=== PATIENT | male | born 1950 | race Caucasian/White ===

== ENCOUNTER → 2022-03-25 | Outpatient (CLI) | payer MEDICARE, SELFPAY ==
--- NOTE | 2022-03-25 13:56 | PCM.CR.HP2 ---
CR - History & Physical - General Arrival date:: 03/25/22 Arrival time:: 13:57 Date of Referral:: 03/14/24 Date of CR Evaluation:: 03/25/22 Referring Physician: Dr. Nicolas @ [facility] Primary Diagnosis: PCI w/coronary stent - History of Present Cardiac Event Onset Date: Enter Onset Date of cardiac illnesses in Comment field below Acute Myocardial Infarction within 12 months:: Yes - ST-Elevated Myocardial Infarction STEMI (11/29/21)022 Coronary Artery Bypass Graft:: No Heart valve replacement or repair:: No PTCA or coronary stenting:: Yes - 11/29/2021 Vessel: MIRANDA to the RCA, 01/27/2022 staged to the LAD for total of 4 stents Heart or Heart-Lung Transplant:: No Heart Failure EF <35%:: No Type of Symptoms:: Was at work that day experienced heavy chest pain and called 911. Transported to [facility] w/[facility] and then to [facility] for suspected CABG being plan A. Once at [place], patient discussed options with Dr. Nicolas and went with stent procedures as Plan B. Interventions with present event:: heart cath and PCI intervention Were there any complications?: Has another blockage in smaller vessel but has collateral vessels. - Sleep Disorder Evaluation Hx of Sleep Apnea: No Do you snore loudly (louder than talking or can be heard through closed doors)?: No Do you often feel tired/ fatigued/ sleepy during daytime?: No Has anyone observed you stop breathing during sleep?: No History of Hypertension (for STOP score): Yes STOP Results: Negative - Medications Home Medications: Ambulatory Orders Medication Instructions Recorded amlodipine 5 mg tablet mg PO DAILY 05/30/13 atenolol 25 mg tablet mg PO DAILY 05/30/13 lisinopril 5 mg tablet mg PO DAILY 05/30/13 pravastatin 40 mg tablet 40 mg PO DAILY 05/30/13 allopurinol 100 mg tablet 100 mg PO DAILY 03/25/22 ascorbic acid (vitamin C) 500 mg 500 mg PO DAILY 03/25/22 tablet aspirin 81 mg capsule 81 mg PO DAILY 03/25/22 atenolol 50 mg tablet 50 mg PO DAILY 03/25/22 atorvastatin 80 mg tablet 80 mg PO DAILY 03/25/22 cholecalciferol (vitamin D3) 125 125 mcg PO DAILY 03/25/22 mcg (5,000 unit) capsule clopidogrel 75 mg tablet 75 mg PO DAILY 03/25/22 [id number] oil-omega 3-vit E cap PO 03/25/22 50 mg-550 mg-300 mg-30 unit capsule diphenhydramine HCl 25 mg capsule 25 mg PO QHS PRN Allergic Symptoms 03/25/22 (Benadryl) doxepin 25 mg capsule 25 mg PO QHS 03/25/22 multivit with minerals-iron 18 tab PO 03/25/22 mg-folic ac 400 mcg-vit K 25 mcg tablet (Adults Multivitamin) nitroglycerin 0.3 mg sublingual 0.4 mg sublingual Q5M PRN Chest 03/25/22 tablet Pain - Allergies Allergies/Adverse Reactions: Allergies hydrochlorothiazide Allergy (Verified 03/25/22 14:13) Hives Advanced Directives - Advanced Directives Power of Video Clerk: Yes Living Will: Yes Advance Directives Information Provided: No Advance Directives on File: No DNR Order?:: No - MOLST See MOLST form: No Past Medical History - Covid-19 Screening Fever: No Unexplained muscle aches: No Current respiratory symptoms: No Upper respiratory infections symptoms: No Gastro-intestinal symptoms: No Jdw-Hwaj-Wnnaai symptoms: No Has tested positive for COVID-19 in last 30 days: No Date of testin03/25/22 - Jesus Vaccine and Booster Had contact w/person w/symptoms or Covid-19 (+) last 14 days: No Has High Risk Exposures ID'd by Health dept/Inf Control team: No 65 years or older:: Yes Lives in Assisted Living facility:: No Has a chronic lung disease or moderate to severe asthma:: No Has a serious heart condition:: Yes Immunocompromised:: No Severely obese (Body Mass Index of 40 or higher):: No Diabetic:: No Has chronic kidney disease undergoing dialysis:: No Has liver disease:: No - Past Medical Illness Medical History: Past Medical History (Last Updated 03/25/22 @ 14:23 by Jordan Cohen, CONTROL SYSTEMS ENGINEER, SEASONAL CUSTOMER SERVICE ASSOCIATE, BS) Atherosclerotic heart disease of [place] coronary artery without angina pectoris I25.10 Coronary artery disease I25.10 Hyperlipidemia E78.[address] elevation [place] (STEMI) Onset Date: ~11/29/21 I21.3 PCI w/coronary stent to the RCA on 11/29/2021. Additional staged PCI with stents to the LAD then on 01/29/2022 for a total of 4 stents. - Past Surgical History Surgical History: Past Surgical History (Last Updated 03/25/22 @ 14:22 by Jordan Cohen, CONTROL SYSTEMS ENGINEER, SEASONAL CUSTOMER SERVICE ASSOCIATE, BS) Presence of coronary angioplasty implant and graft Onset Date: ~11/29/21 Z95.5 Social History - Smoking History Smoking Status: Never smoker Hx Tobacco Use: No Hx Smoking Exposure: No - Alcohol Use Alcohol Usage: Yes - occasional beer - Substance Abuse Hx Substance Use: No - Occupation Occupation (List type of work in comments):: Employed - works part-time in [place]. Former [employer] employee - Hobbies, Recreation, Social Activities Hobbies: Sports - [place] for baseball, Other - [place] for high school baseball Recreational Activities: I am able to engage in most, but not all activities Social Environment - Status Marital Status: - Current Living Arrangements Living Environment:: Spouse - Children How many children do you have?: 3 Do any of your children live nearby?: Yes - Safety Do you feel safe in your surroundings?: Yes - Assistance Do you need any assistance at home?: No Review of Systems - Review of Systems Hints: Right click = Denies ([place]). Left click = Reports ([place]) Review of Present Symptoms: Reports: Shortness of Breath with Exertion - Sometimes, Dizziness/Lightheadedness - at times; usually in the morning when getting up., Appetite - Normal, Sleep - Normal - since lost have difficulty sleeping through the night, frequently waking up but will go back to sleep fairly easily.. Denies: Shortness of Breath at Rest, Angina, Fatigue, Heart Arrhythmia/Irregularities, Appetite - Special Diet - Pain Is Patient Pain Free?: No Pain Location: none Pain Level: 0/10 Risk Factor Assessment - Vital Signs Temperature: 98.7 F Respiratory Rate: 14 Pulse Ox: 95 Blood Pressure: 134/80 - Pulse Pulse Rate: 56 Pulse Rhythm: Regular - Hypertension How long have you been treated?: 1979' On medication(s)?: Yes Blood Pressure Sitting - Left Arm: 134/80 - Stress Stress: Home/Family - Recent loss of , had been 46 years. - Obesity Height: 5 ft 11 in Weight:: 195 lb Weight in Pounds: 195.0 lbs Weight Source: Estimated by Patient Body Mass Index (BMI): 27.1 Nutritional Referral for Obesity: No - Physical Inactivity Physical Inactivity: Reg Exercise 30 min/day, Physically demanding job - Risk Stratification Risk Guidelines: Lowest Risk: Risk Factor for Smoking, Risk Factor for Dyslipidemia, Risk Factor for Diabetes, Risk Factor for Obesity, Risk Factor for Sedentary Lifestyle, Risk Factor for Depression, Moderate Risk: Risk Factor for Hypertension - 134/80 Motivation - Motivation to Participate On a scale of 1 to 10, how prepared are you to commit to attending program?: 9 What do you see as barriers to successfully being able to complete the program?: no What do you see as the benefits of succesfully completing the program? In other words, what do you hope to get out of participating in the program?: Hopefully strengthen the heart, increase/improve health Are there issues you are dealing with that will interfere with completing the program?: no Do you have a spouse or signficant other, family or friends who will help support you to complete the program?: yes
--- NOTE | 2022-03-25 13:57 | PCM.CR.ITP ---
Diagnosis - General Information Admitting Diagnosis: STEMI, PCI w/stent to the RCA then a Staged PCI w/coronary stents to the LAD for a total of 4 stents. Secondary Diagnosis: Hypertension, Hyperlipidemia, Coronary Artery Disease (CAD) Personal Learning Style:: Audio/Visual, Written Barriers to Learning: Vision Impairment Stage of change r/t lifestyle modifications:: Action Gave educational material for:: Treating Heart Disease, Emotions & Heart Disease, Stress Management & Relaxation, Sleep Disorders & Heart Disease, How The Heart Works, What it means to have Heart Disease, How Coronary Artery Disease is Diagnosed, Heart Procedures, What Heart Medications Do, Risk Factors & Modifications, Living an Active Life, Nutrition - Education/Goals Individual Counseling: Initial Assessment: Abnormal Cholesterol Levels, High Blood Pressure Cardiac Rehabilitation Goals: 1. Maintain the individual as the primary focus of care. 2. To improve the patient's quality of life. 3. Identification of cardiac risk factors and provide cardiac risk factor management. 4. Enhance the psychosocial status of the patient. 5. Reconditioning enough to allow the patient to resume customary activities. 6. Control symptoms of cardiac disease Personal Goals: Initial Assessment: Improve management of stress and emotions, Improve energy level, Participate in home exercise program, Get back to work, or to resume activities faster, Improve knowledge of cardiac disease, Improve diet and eating habits (eat healthier), Control risk factors (learn risk factor modification) Scale for measuring improvement of personal goals: Enter appropriate number in Comments. 2 = Unchanged. 3 = Slightly Better. 4 = Moderate Improvement. 5 = Met my Goal - Diagnosis & Disease Process Outcomes/Goals: Pt IDs own risk factors & lifestyle modifications by Session 10, Verbalizes symptoms of angina & response by session 3., Pt independently manages Plan/Interventions: Assist Pt to ID & engage in lifestyle modification to reduce CVD risk, Instruct on individual risk factors, Review symptoms of angina & emergency actions, Review secondary diagnosis & identify educational needs. - Safety Referral to Physical Therapy: No Referral to [facility] Case Management: No Fall Risk Assessed:: Yes Assistive Devices:: None Exercise - Initial Assessment - Visit Date of Eval: 03/25/22 Session #:: 0 - Pre-cardiac rehab evaluation Mets: Pre-: >7 METS for 30 minutes by discharge - Physician Prescribed Exercise Modalities: Treadmill, Rower, Airdyne Frequency: 3x/week for 12 weeks [36 sessions] Intensity: 60-80% of age predicted maximum heart rate reserve Duration: 30 - 45 minutes Current METSs:: 3.5 Target Heart Rate:: 97-129 Resting Blood Pressure: 134/80 EKG Type: Sinus Rhythm w/first degree AVB Current Physical Activity or Exercising minutes: Sits less than 3 hours daily. Works part-time - Outcomes & Goals Goals:: Verbalizes understanding of THR, RPE & goal METS by session 6, Documents in home exercise log/reports 30 min aerobic 5 day/wk by DC, Demonstrates accurate pulse taking by DC - Intervention & Plan Exercise Program Goals: Instruct on personal THR & RPE, Instruct on MET level & personal MET goal, Show patient to take own pulse /validate performance until accurate, Instruct on home exercise - Physical Activity Home Exercise Physical Activity - Home Exercise: Safe Exercise, Warm-up, Self-monitoring, Cool-Down, Home Exercise > 30 min Daily, Sitting Time <3 hours/daily - Outcomes & Goals Outcomes/Goals: Demonstrates correct Warm-up/exercise Cool-Down (S3) if = 2.5 METs, Verbalizes symptoms of exercise intolerance by Session 3 (S3), Demonstrate safe equipment use (S3) & follows exercise prescrition (6) - Intervention & Plan Plan/Intervention: Instruct warm-up & cool-down if exercising at > 2 METs, Instruct on symptoms of exercise intolerance & actions to take, Instruct & monitor on saf, Assess intial functional capacity & safety risk Nutrition - Initial Assessment - Program Goals Nutrition Program Goals: LDL <100 optimal. 100 - 129 Near optimal. 130 - 159 Borderline High. 160 - 189 High. Total Cholesterol <200 desirable. 200 - 239 Borderline High. >/= 240 High. HDL < 40 Low >/=60 High. Triglycerides <150 desirable. <199 optimal. VlDL 5 - 40. HgbA1C <7%. BMI <25 Patient has diagnosis of Hyperlipidemia (ICD E78)?: Yes - Visit Date of Assessment:: 03/25/22 Session #:: 0 - Pre-cardiac rehab evaluation - Cholesterol/Lipids (Other Core Measures) Triglycerides (mg/dL): 0 - lab work unavailable Determine presence & major risk factors that modify LDL goal: Hypertension or hypertensive medication, Age men > 45 years; women >/= 55 years Outcomes/Goals: Pt IDs own risk factors & lifestyle modifications by Session 10, Verbalizes symptoms of angina & response by session 3., Pt independently manages Intervention/Plan: Instruct on personal lipid levels & lipid goals/NCEP guidelines, Instruct on cholesterol Referral to dietitian:: Yes - Medical NUtrition Therapy - Diabetes (Other Core Measures) Diabetes Type: Not Applicable - Weight Mgt (Other Care) Height: 5 ft 10 in Weight:: 195 lb BMI: 27.9 Diagnosis Overweight/Obesity BMI> 30% ICD-10 E66: No Diagnosis High BMI/Morbid Obesity BMI> 35% ICD-10 Z68: No Outcomes/Goals: Pt sets, maintains & shows weight loss goal & trend during rehab Intervention/Plan: Instruct on ideal BMI & set weight loss goal w/patient - Healthy Eating Habits Will attend diet classes:: Yes Outcomes/Goals:: Consume diet rich in vegs,fruits,whole grain/high fiber,fish,lean meat, Limit sat/trans fats,cholesterol & added salts & sugars Intervention/Plan:: Assess current eating habits - Education Gave educational materials for:: Healthy eating Nutrition - 30-Day Assessment Nutrition - 60-Day Assessment Nutrition - 90-Day Assessment Nutrition - Final Assessment Core - Initial Assessment - Visit Date of Eval: 03/25/22 Session #:: 0 - Pre-cardiac rehab evaluation - Medication Compliance Preventative Medication(s):: Aspirin, Clopidogrel/P2Y12 inhibit, Statin/lipid, Beta iban H/O mental health issues: depression, anxiety, or addiction?: No Doesn?t believe in the benefits of treatment?: No Believes medications are unnecessary or harmful?: No Has a concern about medication side effects?: No Expresses concern over the cost of medications?: No Outcomes/Goals: Verbalizes medications,desired effect & common side effects @ DC, Pt self-reports following medication regimen, Keeps card in wallet w/medications listed by DC Interventions/plans: Instruct on medication effects & side effects, Review medication list w/patient every two weeks, Instruct importance of taking meds as ordered & assist problem solving - Tobacco Use Tobacco Use: Non-smoker - Hypertension Hypertension Diagnosis:: Hypertension ICD-10 I10 Resting Blood Pressure:: 134/80 [place] [employer] Association Hypertension Guidelines: [place] Heart Association Hypertension Guidelines. Normal BP Less than 120/80. Elevated BP 120/80. Hypertension Stage 1: BP 130-139/80-89. Hypertesnion Stage 2: BP 140 or higher/90 or higher. Hypertension Crisis: BP higher than 180/120 Peak Exercise Blood Pressure:: 134/80 Outcomes/Goals: Able to verbalize/achieve optimal blood pressure <130/80, Incorporates diet changes & exercise for blood pressure control by DC Interventions/plan: Instruct on optimal blood pressure, hypertension & medications, Instruct on effects of sodium, alcohol, stress, exercise &hypertension - Tobacco Cessation Referral Smoking Cessation Referral:: No Individual Education/Counseling:: No Education Schedule Given:: Yes Core - 30-Day Assessment Core - 60-Day Assessment Core - 90 Day Assessment Core - Final Assessment Psychosocial - Initial Assess - VIsit Date of Eval: 03/25/22 Session #:: 0 - Pre-cardiac rehab evaluation Not Applicable: Yes History of previous Mental disease:: No - Psychosocial Test Tool Used:: Ferrans Wilfredo QOL Cardiac, PHQ-9 Questionnaire phq-9 Severity: Severity. 1-4 Minimal Depression. 5-9 Mild Depression. 10-14 Moderate Depression. 15-19 Moderately Sever Depression. 20-27 Severe Depression. Rule: - Referral to Behavioral Health PS - Interventions: Yes Attend Stress Management Classes, No Referral to Behavioral Health if PHQ-9 score >9:, No Referral to [facility], No Referral to Physician if PHQ-9 if score is 5-9: - Outcomes/Goals: See list Psychosocial Outcomes/Goals:: ID's personal stressors & 2 strategies to manage stress by discharge - Intervention/Plan: See List Interventions/Plan:: Assess stressors,coping strategies & signs of derpression on admission, Instruct/assist pt to develop coping & personal stress Mgt strategies, Instruct patient to recognize signs & symptoms of depression, Instruct patient to recog Psychosocial - 30-Day Assess Psychosocial - 60-Day Assess Psychosocial - 90-Day Assess Psychosocial - Final Assessmen Patient Health Questionnaire Initial Assessment 1. Little interest or pleasure in doing things: Several days 2. Feeling down, depressed, or hopeless: Several days 3. Trouble falling or staying asleep, or sleeping too much: Several days 4. Feeling tired or having little energy: Several days 5. Poor appetite or overeating: Several days 6. Feeling bad about yourself -- or that you are a failure or have let yourself or your family down: Not at all 7. Trouble concentrating on things, such as reading the newspaper or watching television: Several days 8. Moving or speaking so slowly that other people could have noticed. Or the opposite - being so fidgety or restless that you have been moving around a lot more than usual: Not at all 9. Thoughts that you would be better off , or of hurting yourself in some way: Not at all How difficult have these problems made it for you to do your work, take care of things at home, or get along with other people?: Not difficult at all Total Score: 6 TYRESE-Q SV Test - Statements CAD is a disease of the arteries in the heart: False Examples of risk factors for heart disease: True Angina is chest pain or discomfort: True The benefits of resistance training include: True Eating more meat and dairy products: False Anti-platelet medications such as aspirin are important: True The only effective way to manage stress: False An exercise warm-up slowly increases heart rate: True Prepared, processed foods usually have high sodium: True Depression is common after a heart attack: True The statin medications lower cholesterol: True To control blood pressure, lower the amount of sodium: True If someone gets chest discomfort during walking: False Transfats are partially hydrogenated vegetable oils: True Sleep apnea that is not treated increases the risk: I Don't Know To control cholesterol, one should become a vegetarian: I Don't Know Someone knows if he/she is exercising at the right level: True Diabetes cannot be prevented with exercise & health eating: True Stress is a large risk for heart attack: True A diet that can help lower blood pressure is rich in: True - Total Score Total Correct Responses: 17 Self-Efficacy Initial Assessment We would like to know how confident you are in doing certain activities. Please select your confidence level for:: Select your confidence level for the following using the scale 1-10 where 1 is not at all confident and 10 is totally confident. Your score is the average of all 6 responses. Fatigue: How confident are you that you can keep the fatigue caused by your disease from interfering with the things you want to do? Select Number: 4 Physical Discomfort or Pain: How confident are you that you can keep the physical discomfort or pain of your disease from interfering with the things you want to do? Select Number: 4 Emotional Distress: How confident are you that you can keep the emotional distress caused by your disease from interfering with the things you want to do? Select Number: 4 Other Symptoms or Health Problems: How confident are you that you can keep other symptoms or health problems from interfering with the things you want to do? Select Number: 4 Different Tasks and Activities: How confident are you that you can do the different tasks and activities needed to manage your health condition so as to reduce your need to see a doctor? Select Number: 4 Medication: How confident are you that you can do things other than just taking medication to reduce how much your illness affects your everyday life? Select Number: 4 Total Score:: 4 Nutrition Survey - Nutrition Survey Initial Have you lost >10 lbs over the past 2 months without trying?: No Are you following a special diet at home for diabetes, low fat, or low salt?: No Are you interested in meeting with a dietitian for help understanding your diet?: No Do you eat less than 3 meals a day?: No Do you eat fatty meats (hill, sausage, ribs, etc), fried foods, desserts, large amounts of salad dressings, margarine, butter, or cheese most days?: Yes Do you have food allergies? [Enter types in comment field]: No Do you eat in restaurants more than 3 times a week?: No Do you season food with salt, seasoning salt, or garlic salt?: Yes Do you used canned, boxed, frozen meals, or soups, seasoning packets?: Yes Total Score:: 3
[2022-03-25 14:44] VITALS: BP 134/80; PULSE 56; RESP 14; TEMP 37.1; O2SAT 95; BMI 27.1
[2022-03-25 15:31] VITALS: BP 134/80; BMI 27.9
== END | disposition home or self-care (01) ==
LOC: CR 13:51
PROVIDERS: PCP Family Medicine; Referring Provider Internal Medicine; Visit Provider Internal Medicine
DX: E78.5 Hyperlipidemia, unspecified (principal); I10 Essential (primary) hypertension; I25.10 Atherosclerotic heart disease of native coronary artery without angina pectoris

== ENCOUNTER 2022-04-22 14:30 | Outpatient (RCR) | payer MEDICARE, SELFPAY ==
[2022-03-25 15:31] VITALS: BMI 27.9
== END 2022-04-22 23:59 ==
LOC: CR 14:30
PROVIDERS: PCP Family Medicine; Referring Provider Internal Medicine; Visit Provider Internal Medicine
DX: I25.2 Old myocardial infarction (principal); Z95.5 Presence of coronary angioplasty implant and graft
CPT/HCPCS: 93798

== ENCOUNTER 2022-05-23 14:30 | Outpatient (RCR) | payer MEDICARE, SELFPAY ==
[2022-03-25 15:31] VITALS: BMI 27.9
--- NOTE | 2022-04-25 11:12 | CR.ITP_ITS ---
Diagnosis Exercise - 30-day Assessment - Visit Date of Eval: 04/25/22 Session #:: 11 - Physician Prescribed Exercise Modalities: Treadmill, Rower, Airdyne, NuStep, SciFit, Lateral [place] Frequency: 3x/week for 12 weeks [36 sessions] Intensity: 60-80% of age predicted maximum heart rate reserve Current METSs:: 5 Target Heart Rate:: 97-129 Current RPE:: 13 Maximum Excercise HR:: 95 Resting Blood Pressure: 116/78 Maximum Exercise Blood Pressure: 150/90 EKG Type: NSR/BBB W1st degree AVB w/ Twave inversion rare pac and pvc - Outcomes & Goals Goals:: Verbalizes understanding of THR, RPE & goal METS by session 6, Documents in home exercise log/reports 30 min aerobic 5 day/wk by DC, Demonstrates accurate pulse taking by DC, Other additional outcome/goals: see below - Intervention & Plan Exercise Program Goals: Instruct on personal THR & RPE, Instruct on MET level & personal MET goal, Show patient to take own pulse /validate performance until accurate, Instruct on home exercise, Other additional plan/int - 30-day Reassessments 30 day Reassessments:: Progressing - increasing METS - Physical Activity Home Exercise Physical Activity - Home Exercise: Safe Exercise, Warm-up, Self-monitoring, Cool-Down, Home Exercise > 30 min Daily, Sitting Time <3 hours/daily - Outcomes & Goals Outcomes/Goals: Demonstrates correct Warm-up/exercise Cool-Down (S3) if = 2.5 METs, Verbalizes symptoms of exercise intolerance by Session 3 (S3), Demonstrate safe equipment use (S3) & follows exercise prescrition (6), Other: See below - Intervention & Plan Plan/Intervention: Instruct warm-up & cool-down if exercising at > 2 METs, Instruct on symptoms of exercise intolerance & actions to take, Instruct & monitor on saf, Assess intial functional capacity & safety risk, Other See below - 30-day Reassessments 30 day Reassessments:: Progressing - safe exercise explained Nutrition - Initial Assessment Nutrition - 30-Day Assessment - Program Goals Nutrition Program Goals: LDL <100 optimal. 100 - 129 Near optimal. 130 - 159 Borderline High. 160 - 189 High. Total Cholesterol <200 desirable. 200 - 239 Borderline High. >/= 240 High. HDL < 40 Low >/=60 High. Triglycerides <150 desirable. <199 optimal. VlDL 5 - 40. HgbA1C <7%. BMI <25 Patient has diagnosis of Hyperlipidemia (ICD E78)?: Yes - Visit Date of Assessment:: 04/25/22 Session #:: 11 - Cholesterol/Lipids (Other Core Measures) Determine presence & major risk factors that modify LDL goal: Hypertension or hypertensive medication, Low HDL cholesterol <40 mg/dL*, Family history of premature CHD in Male < 55 years: female <65 yearsFa, Age men > 45 years; women >/= 55 years Outcomes/Goals: Pt IDs own risk factors & lifestyle modifications by Session 10, Verbalizes symptoms of angina & response by session 3., Pt independently manages, Other Additional Outcomes/Goals: Intervention/Plan: Advocate for lipid panel cholesterol medication if applicable, Instruct on personal lipid levels & lipid goals/NCEP guidelines, Instruct on cholesterol, Other additional plan/int 30-day Reassessments:: Progressing - risk factors explained - Diabetes (Other Core Measures) Diabetes Type: Not Applicable - Weight Mgt (Other Care) Height: 5 ft 10 in Weight:: 90.718 kg BMI: 28.7 Outcomes/Goals: Pt sets, maintains & shows weight loss goal & trend during rehab, Other additional outcomes/goals Intervention/Plan: Instruct on ideal BMI & set weight loss goal w/patient, Assist pt to ID & incorporate diet changes for weight loss by S9, Refer to Structured Weight Loss program as appropriate, Encourage goal of using 250- 300dcal per session for weight loss, Other additional plan/interventions 30 day Reassessments:: Progressing - attended nutrition class - Healthy Eating Habits Will attend diet classes:: Yes Outcomes/Goals:: Consume diet rich in vegs,fruits,whole grain/high fiber,fish,lean meat, Limit sat/trans fats,cholesterol & added salts & sugars, Other additional outcome/goals: Intervention/Plan:: Assess current eating habits, Other Additional plan/interventions 30-day Reassessments:: Progressing - attended nutrition class - Education Gave educational materials for:: Signs & symptoms of hypoglycemia, Signs & symptoms of hyperglycemia, Relate diabetes to coronary artery disease, Healthy eating Nutrition - 60-Day Assessment Nutrition - 90-Day Assessment Nutrition - Final Assessment Core - Initial Assessment Core - 30-Day Assessment - Visit Date of Eval: 04/25/22 Session #:: 11 - Medication Compliance Preventative Medication(s):: Aspirin, Clopidogrel/P2Y12 inhibit, Statin/lipid, Beta iban H/O mental health issues: depression, anxiety, or addiction?: No Doesn?t believe in the benefits of treatment?: No Believes medications are unnecessary or harmful?: No Has a concern about medication side effects?: No Expresses concern over the cost of medications?: No Outcomes/Goals: Verbalizes medications,desired effect & common side effects @ DC, Pt self-reports following medication regimen, Keeps card in wallet w/medications listed by DC, Other additional outcome/goals: Interventions/plans: Instruct on medication effects & side effects, Review medication list w/patient every two weeks, Instruct importance of taking meds as ordered & assist problem solving, Other additional 30-day Reassessments:: Progressing - encouraged to take meds - Tobacco Use Tobacco Use: Non-smoker Do you use smokeless tobacco?: No - Hypertension Hypertension Diagnosis:: Hypertension ICD-10 I10 Resting Blood Pressure:: 116/78 [place] [employer] Hypertension Guidelines: [place] [employer] Hypertension Guidelines. Normal BP Less than 120/80. Elevated BP 120/80. Hypertension Stage 1: BP 130-139/80-89. Hypertesnion Stage 2: BP 140 or higher/90 or higher. Hypertension Crisis: BP higher than 180/120 Peak Exercise Blood Pressure:: 150/90 Outcomes/Goals: Able to verbalize/achieve optimal blood pressure <130/80, Incorporates diet changes & exercise for blood pressure control by DC, Other additional outcomes/goals Interventions/plan: Instruct on optimal blood pressure, hypertension & medications, Instruct on effects of sodium, alcohol, stress, exercise &hypertension, Other additional plan/interventions 30 day Reassessments:: Progressing - encouraged to take meds - Tobacco Cessation Referral Smoking Cessation Referral:: No Individual Education/Counseling:: No Education Schedule Given:: Yes Core - 60-Day Assessment Core - 90 Day Assessment Core - Final Assessment Psychosocial - Initial Assess Psychosocial - 30-Day Assess - VIsit Date of Eval: 04/25/22 Session #:: 11 Psychosocial - 60-Day Assess Psychosocial - 90-Day Assess Psychosocial - Final Assessmen Patient Health Questionnaire 30-Day Re-eval Assessment 1. Little interest or pleasure in doing things: Several days 2. Feeling down, depressed, or hopeless: Several days 3. Trouble falling or staying asleep, or sleeping too much: Several days 4. Feeling tired or having little energy: Several days 5. Poor appetite or overeating: Several days 6. Feeling bad about yourself -- or that you are a failure or have let yourself or your family down: Not at all 7. Trouble concentrating on things, such as reading the newspaper or watching television: Several days 8. Moving or speaking so slowly that other people could have noticed. Or the opposite - being so fidgety or restless that you have been moving around a lot more than usual: Not at all 9. Thoughts that you would be better off , or of hurting yourself in some way: Not at all How difficult have these problems made it for you to do your work, take care of things at home, or get along with other people?: Not difficult at all Total Score: 6 Self-Efficacy 30-Day Re-eval Assessment We would like to know how confident you are in doing certain activities. Please select your confidence level for:: Select your confidence level for the following using the scale 1-10 where 1 is not at all confident and 10 is totally confident. Your score is the average of all 6 responses. Fatigue: How confident are you that you can keep the fatigue caused by your disease from interfering with the things you want to do? Select Number: 4 Physical Discomfort or Pain: How confident are you that you can keep the physical discomfort or pain of your disease from interfering with the things you want to do? Select Number: 4 Emotional Distress: How confident are you that you can keep the emotional distress caused by your disease from interfering with the things you want to do? Select Number: 4 Other Symptoms or Health Problems: How confident are you that you can keep other symptoms or health problems from interfering with the things you want to do? Select Number: 4 Different Tasks and Activities: How confident are you that you can do the different tasks and activities needed to manage your health condition so as to reduce your need to see a doctor? Select Number: 4 Medication: How confident are you that you can do things other than just taking medication to reduce how much your illness affects your everyday life? Select Number: 4 Total Score:: 4 Nutrition Survey
[2022-04-25 11:19] VITALS: BP 116/78; BP 150/90; BMI 28.7
== END 2022-05-23 23:59 ==
LOC: CR 14:30
PROVIDERS: PCP Family Medicine; Referring Provider Internal Medicine; Visit Provider Internal Medicine
DX: Z95.5 Presence of coronary angioplasty implant and graft
CPT/HCPCS: 93798

== ENCOUNTER 2022-06-22 14:30 | Outpatient (RCR) | payer MEDICARE, SELFPAY ==
[2022-04-25 11:19] VITALS: BMI 28.7
[2022-05-24 00:35] VITALS: BP 116/78; BP 150/90
--- NOTE | 2022-05-25 09:29 | CR.ITP_ITS ---
Diagnosis Exercise - 60-day Assessment - Visit Date of Eval: 05/25/22 Session #:: 23 - Physician Prescribed Exercise Modalities: Treadmill, Airdyne, NuStep Frequency: 3x/week for 12 weeks [36 sessions] Intensity: 60-80% of age predicted maximum heart rate reserve Duration: 30 - 45 minutes Current METSs:: 5.0 Target Heart Rate:: 97-129 Current RPE:: 12 Maximum Excercise HR:: 138 Resting Blood Pressure: 162/90 Maximum Exercise Blood Pressure: 190/96 EKG Type: SB to ST w/BBB, 1st degree AVB T wave inversion, PACs PVCs. Dr. Nicolas infor Current Physical Activity or Exercising minutes: 45:12 - Outcomes & Goals Goals:: Verbalizes understanding of THR, RPE & goal METS by session 6, Documents in home exercise log/reports 30 min aerobic 5 day/wk by DC, Demonstrates accurate pulse taking by DC - Intervention & Plan Exercise Program Goals: Instruct on personal THR & RPE, Instruct on MET level & personal MET goal, Show patient to take own pulse /validate performance until accurate, Instruct on home exercise - 30-day Reassessments 30 day Reassessments:: Met - Physical Activity Home Exercise Physical Activity - Home Exercise: Safe Exercise, Warm-up, Self-monitoring, Cool-Down, Home Exercise > 30 min Daily, Sitting Time <3 hours/daily - Outcomes & Goals Outcomes/Goals: Demonstrates correct Warm-up/exercise Cool-Down (S3) if = 2.5 METs, Verbalizes symptoms of exercise intolerance by Session 3 (S3), Demonstrate safe equipment use (S3) & follows exercise prescrition (6) - Intervention & Plan Plan/Intervention: Instruct warm-up & cool-down if exercising at > 2 METs, Instruct on symptoms of exercise intolerance & actions to take, Instruct & monitor on saf, Assess intial functional capacity & safety risk - 30-day Reassessments 30 day Reassessments:: Met Nutrition - Initial Assessment Nutrition - 30-Day Assessment Nutrition - 60-Day Assessment - Program Goals Nutrition Program Goals: LDL <100 optimal. 100 - 129 Near optimal. 130 - 159 Borderline High. 160 - 189 High. Total Cholesterol <200 desirable. 200 - 239 Borderline High. >/= 240 High. HDL < 40 Low >/=60 High. Triglycerides <150 desirable. <199 optimal. VlDL 5 - 40. HgbA1C <7%. BMI <25 Patient has diagnosis of Hyperlipidemia (ICD E78)?: Yes - Visit Date of Assessment:: 05/25/22 Session #:: 23 - Cholesterol/Lipids (Other Core Measures) Determine presence & major risk factors that modify LDL goal: Hypertension or hypertensive medication, Age men > 45 years; women >/= 55 years Outcomes/Goals: Pt IDs own risk factors & lifestyle modifications by Session 10, Verbalizes symptoms of angina & response by session 3., Pt independently manages Intervention/Plan: Instruct on personal lipid levels & lipid goals/NCEP guidelines, Instruct on cholesterol Referral to dietitian:: Yes - Medical Nutrition Therapy 30-day Reassessments:: Progressing - Diabetes (Other Core Measures) Diabetes Type: Not Applicable - Weight Mgt (Other Care) Not Applicable: Yes Height: 5 ft 10 in Weight:: 205 lb - patient gained 6 pounds this 30-days BMI: 29.4 Diagnosis Overweight/Obesity BMI> 30% ICD-10 E66: No Diagnosis High BMI/Morbid Obesity BMI> 35% ICD-10 Z68: No Outcomes/Goals: Pt sets, maintains & shows weight loss goal & trend during rehab Intervention/Plan: Instruct on ideal BMI & set weight loss goal w/patient, Assist pt to ID & incorporate diet changes for weight loss by S9 30 day Reassessments:: Not Met - Healthy Eating Habits Will attend diet classes:: Yes Outcomes/Goals:: Consume diet rich in vegs,fruits,whole grain/high fiber,fish,lean meat, Limit sat/trans fats,cholesterol & added salts & sugars Intervention/Plan:: Assess current eating habits 30-day Reassessments:: Progressing - Education Gave educational materials for:: Healthy eating Nutrition - 90-Day Assessment Nutrition - Final Assessment Core - Initial Assessment Core - 30-Day Assessment Core - 60-Day Assessment - Visit Date of Eval: 05/25/22 Session #:: 23 - Medication Compliance Preventative Medication(s):: Aspirin, Clopidogrel/P2Y12 inhibit, Statin/lipid, Beta iban H/O mental health issues: depression, anxiety, or addiction?: No Doesn?t believe in the benefits of treatment?: No Believes medications are unnecessary or harmful?: No Has a concern about medication side effects?: No Expresses concern over the cost of medications?: No Outcomes/Goals: Verbalizes medications,desired effect & common side effects @ DC, Pt self-reports following medication regimen, Keeps card in wallet w/medications listed by DC Interventions/plans: Instruct on medication effects & side effects, Review medication list w/patient every two weeks, Instruct importance of taking meds as ordered & assist problem solving 30-day Reassessments:: Met - Tobacco Use Tobacco Use: Non-smoker - Hypertension Hypertension Diagnosis:: Hypertension ICD-10 I10 Resting Blood Pressure:: 162/90 - BP progressively increased this 30-day period see attached [place] [employer] Hypertension Guidelines: [place] [employer] Hypertension Guidelines. Normal BP Less than 120/80. Elevated BP 120/80. Hypertension Stage 1: BP 130-139/80-89. Hypertesnion Stage 2: BP 140 or higher/90 or higher. Hypertension Crisis: BP higher than 180/120 Peak Exercise Blood Pressure:: 190/96 Outcomes/Goals: Able to verbalize/achieve optimal blood pressure <130/80, In corporates diet changes & exercise for blood pressure control by DC Interventions/plan: Instruct on optimal blood pressure, hypertension & medications, Instruct on effects of sodium, alcohol, stress, exercise &hypertension 30 day Reassessments:: Not Met - Tobacco Cessation Referral Smoking Cessation Referral:: No Individual Education/Counseling:: No Education Schedule Given:: Yes Core - 90 Day Assessment Core - Final Assessment Psychosocial - Initial Assess Psychosocial - 30-Day Assess Psychosocial - 60-Day Assess - VIsit Date of Eval: 05/25/22 Session #:: 23 Not Applicable: Yes History of previous Mental disease:: No History of Emotional Disorders: Anxious - Psychosocial Test Tool Used:: PHQ-9 Questionnaire phq-9 Severity: Severity. 1-4 Minimal Depression. 5-9 Mild Depression. 10-14 Moderate Depression. 15-19 Moderately Sever Depression. 20-27 Severe Depression. Rule: - Referral to Behavioral Health PS - Interventions: Yes Attend Stress Management Classes, No Referral to Behavioral Health if PHQ-9 score >9:, No Referral to [facility], No Referral to Physician if PHQ-9 if score is 5-9: - Outcomes/Goals: See list Psychosocial Outcomes/Goals:: ID's personal stressors & 2 strategies to manage stress by discharge - Intervention/Plan: See List Interventions/Plan:: Assess stressors,coping strategies & signs of derpression on admission, Instruct/assist pt to develop coping & personal stress Mgt strategies, Instruct patient to recognize signs & symptoms of depression, Instruct patient to recog - 30-day Reassessments: 30 day Reassessments:: Met Psychosocial - 90-Day Assess Psychosocial - Final Assessmen Patient Health Questionnaire 60-Day Re-eval Assessment 1. Little interest or pleasure in doing things: Not at all 2. Feeling down, depressed, or hopeless: Not at all 3. Trouble falling or staying asleep, or sleeping too much: Several days 4. Feeling tired or having little energy: Several days 5. Poor appetite or overeating: Not at all 6. Feeling bad about yourself -- or that you are a failure or have let yourself or your family down: Not at all 7. Trouble concentrating on things, such as reading the newspaper or watching television: Several days 8. Moving or speaking so slowly that other people could have noticed. Or the opposite - being so fidgety or restless that you have been moving around a lot more than usual: Not at all 9. Thoughts that you would be better off , or of hurting yourself in some way: Not at all How difficult have these problems made it for you to do your work, take care of things at home, or get along with other people?: Somewhat difficult Total Score: 3 Self-Efficacy 60-Day Re-eval Assessment We would like to know how confident you are in doing certain activities. Please select your confidence level for:: Select your confidence level for the following using the scale 1-10 where 1 is not at all confident and 10 is totally confident. Your score is the average of all 6 responses. Fatigue: How confident are you that you can keep the fatigue caused by your disease from interfering with the things you want to do? Select Number: 6 Physical Discomfort or Pain: How confident are you that you can keep the physical discomfort or pain of your disease from interfering with the things you want to do? Select Number: 6 Emotional Distress: How confident are you that you can keep the emotional distress caused by your disease from interfering with the things you want to do? Select Number: 7 Other Symptoms or Health Problems: How confident are you that you can keep other symptoms or health problems from interfering with the things you want to do? Select Number: 7 Different Tasks and Activities: How confident are you that you can do the di fferent tasks and activities needed to manage your health condition so as to reduce your need to see a doctor? Select Number: 8 Medication: How confident are you that you can do things other than just taking medication to reduce how much your illness affects your everyday life? Select Number: 9 Total Score:: 7 Nutrition Survey
[2022-05-25 09:38] VITALS: BP 162/90; BP 190/96; BMI 29.4
== END 2022-06-22 23:59 ==
LOC: CR 14:30
PROVIDERS: PCP Family Medicine; Referring Provider Internal Medicine; Visit Provider Internal Medicine
DX: Z95.5 Presence of coronary angioplasty implant and graft (principal)
CPT/HCPCS: 93798

== ENCOUNTER 2022-06-27 14:30 | Outpatient (RCR) | payer MEDICARE, SELFPAY ==
[2022-05-25 09:38] VITALS: BMI 29.4
[2022-06-23 00:31] VITALS: BP 162/90; BP 190/96
--- NOTE | 2022-06-27 08:40 | CR.ITP_ITS ---
Diagnosis Exercise - 90-day Assessment - Visit Date of Eval: 06/27/22 Session #:: 35 - Physician Prescribed Exercise Modalities: Treadmill, Rower, Airdyne, NuStep, SciFit, Lateral [place] Frequency: 3x/week for 12 weeks [36 sessions] Intensity: 60-80% of age predicted maximum heart rate reserve Current METSs:: 5 Target Heart Rate:: 97-129 Current RPE:: 12-13 Maximum Excercise HR:: 123 Resting Blood Pressure: 130/80 Maximum Exercise Blood Pressure: 172/86 - Outcomes & Goals Goals:: Verbalizes understanding of THR, RPE & goal METS by session 6, Documents in home exercise log/reports 30 min aerobic 5 day/wk by DC, Demonstrates accurate pulse taking by DC, Other additional outcome/goals: see below - Intervention & Plan Exercise Program Goals: Instruct on personal THR & RPE, Instruct on MET level & personal MET goal, Show patient to take own pulse /validate performance until accurate, Instruct on home exercise, Other additional plan/int - 30-day Reassessments 30 day Reassessments:: Met - Physical Activity Home Exercise Physical Activity - Home Exercise: Safe Exercise, Warm-up, Self-monitoring, Cool-Down, Home Exercise > 30 min Daily, Sitting Time <3 hours/daily - Outcomes & Goals Outcomes/Goals: Demonstrates correct Warm-up/exercise Cool-Down (S3) if = 2.5 METs, Verbalizes symptoms of exercise intolerance by Session 3 (S3), Demonstrate safe equipment use (S3) & follows exercise prescrition (6), Other: See below - 30-day Reassessments 30 day Reassessments:: Met Nutrition - Initial Assessment Nutrition - 30-Day Assessment Nutrition - 60-Day Assessment Nutrition - 90-Day Assessment - Program Goals Nutrition Program Goals: LDL <100 optimal. 100 - 129 Near optimal. 130 - 159 Borderline High. 160 - 189 High. Total Cholesterol <200 desirable. 200 - 239 Borderline High. >/= 240 High. HDL < 40 Low >/=60 High. Triglycerides <150 desirable. <199 optimal. VlDL 5 - 40. HgbA1C <7%. BMI <25 Patient has diagnosis of Hyperlipidemia (ICD E78)?: Yes - Visit Date of Assessment:: 06/27/22 Session #:: 35 - Cholesterol/Lipids (Other Core Measures) Determine presence & major risk factors that modify LDL goal: Hypertension or hypertensive medication, Low HDL cholesterol <40 mg/dL*, Family history of premature CHD in Male < 55 years: female <65 yearsFa, Age men > 45 years; women >/= 55 years Intervention/Plan: Advocate for lipid panel cholesterol medication if applicable, Instruct on personal lipid levels & lipid goals/NCEP guidelines, Instruct on cholesterol, Other additional plan/int 30-day Reassessments:: Met - Diabetes (Other Core Measures) Diabetes Type: Not Applicable - Weight Mgt (Other Care) Height: 5 ft 10 in Weight:: 89.584 kg BMI: 28.3 30 day Reassessments:: Met - Healthy Eating Habits Will attend diet classes:: Yes Outcomes/Goals:: Consume diet rich in vegs,fruits,whole grain/high fiber,fish,lean meat, Limit sat/trans fats,cholesterol & added salts & sugars, Other additional outcome/goals: Intervention/Plan:: Assess current eating habits, Other Additional plan/interventions 30-day Reassessments:: Met - Education Gave educational materials for:: Signs & symptoms of hypoglycemia, Signs & symptoms of hyperglycemia, Relate diabetes to coronary artery disease, Healthy eating Nutrition - Final Assessment Core - Initial Assessment Core - 30-Day Assessment Core - 60-Day Assessment Core - 90 Day Assessment - Visit Date of Eval: 06/27/22 Session #:: 35 - Medication Compliance Preventative Medication(s):: Aspirin, Clopidogrel/P2Y12 inhibit, Statin/lipid Doesn?t believe in the benefits of treatment?: No Believes medications are unnecessary or harmful?: No Has a concern about medication side effects?: No Expresses concern over the cost of medications?: No Outcomes/Goals: Verbalizes medications,desired effect & common side effects @ DC, Pt self-reports following medication regimen, Keeps card in wallet w/medications listed by DC, Other additional outcome/goals: Interventions/plans: Instruct on medication effects & side effects, Review medication list w/patient every two weeks, Instruct importance of taking meds as ordered & assist problem solving, Other additional 30-day Reassessments:: Met - Tobacco Use Tobacco Use: Non-smoker 30-day Reassessments:: Met - Hypertension Hypertension Diagnosis:: Hypertension ICD-10 I10 Resting Blood Pressure:: 130/80 [place] [employer] Hypertension Guidelines: [place] [employer] Hypertension Guidelines. Normal BP Less than 120/80. Elevated BP 120/80. Hypertension Stage 1: BP 130-139/80-89. Hypertesnion Stage 2: BP 140 or higher/90 or higher. Hypertension Crisis: BP higher than 180/120 Peak Exercise Blood Pressure:: 172/86 Outcomes/Goals: Able to verbalize/achieve optimal blood pressure <130/80, Incorporates diet changes & exercise for blood pressure control by DC, Other additional outcomes/goals Interventions/plan: Instruct on optimal blood pressure, hypertension & medications, Instruct on effects of sodium, alcohol, stress, exercise &hypertension, Other additional plan/interventions 30 day Reassessments:: Met - Tobacco Cessation Referral Smoking Cessation Referral:: No Individual Education/Counseling:: No Education Schedule Given:: Yes Core - Final Assessment Psychosocial - Initial Assess Psychosocial - 30-Day Assess Psychosocial - 60-Day Assess Psychosocial - 90-Day Assess - VIsit Date of Eval: 06/27/22 Session #:: 35 History of Emotional Disorders: Anxious - Outcomes/Goals: See list Psychosocial Outcomes/Goals:: ID's personal stressors & 2 strategies to manage stress by discharge, Other Additional outcome/goals: - Intervention/Plan: See List Interventions/Plan:: Assess stressors,coping strategies & signs of derpression on admission, Instruct/assist pt to develop coping & personal stress Mgt strategies, Refer to Behavioral Health if appropriate, Refer to Physician if appropriate, Instruct patient to recognize signs & symptoms of depression, Instruct patient to recog, Other additional plan/intervention - 30-day Reassessments: 30 day Reassessments:: Met Psychosocial - Final Assessmen Patient Health Questionnaire 90-Day Re-eval Assessment 1. Little interest or pleasure in doing things: Not at all 2. Feeling down, depressed, or hopeless: Not at all 3. Trouble falling or staying asleep, or sleeping too much: Several days 4. Feeling tired or having little energy: Several days 5. Poor appetite or overeating: Not at all 6. Feeling bad about yourself -- or that you are a failure or have let yourself or your family down: Several days 7. Trouble concentrating on things, such as reading the newspaper or watching television: Not at all 8. Moving or speaking so slowly that other people could have noticed. Or the opposite - being so fidgety or restless that you have been moving around a lot more than usual: Not at all 9. Thoughts that you would be better off , or of hurting yourself in some way: Not at all How difficult have these problems made it for you to do your work, take care of things at home, or get along with other people?: Somewhat difficult Total Score: 3 Self-Efficacy 90-Day Re-eval Assessment We would like to know how confident you are in doing certain activities. Please select your confidence level for:: Select your confidence level for the following using the scale 1-10 where 1 is not at all confident and 10 is totally confident. Your score is the average of all 6 responses. Fatigue: How confident are you that you can keep the fatigue caused by your disease from interfering with the things you want to do? Select Number: 6 Physical Discomfort or Pain: How confident are you that you can keep the physical discomfort or pain of your disease from interfering with the things you want to do? Select Number: 6 Emotional Distress: How confident are you that you can keep the emotional distress caused by your disease from interfering with the things you want to do? Select Number: 7 Other Symptoms or Health Problems: How confident are you that you can keep other symptoms or health problems from interfering with the things you want to do? Select Number: 7 Different Tasks and Activities: How confident are you that you can do the different tasks and activities needed to manage your health condition so as to reduce your need to see a doctor? Select Number: 8 Medication: How confident are you that you can do things other than just taking medication to reduce how much your illness affects your everyday life? Select Number: 9 Total Score:: 7 Nutrition Survey
[2022-06-27 08:46] VITALS: BP 130/80; BP 172/86; BMI 28.3
== END 2022-07-23 23:59 ==
LOC: CR 14:30
PROVIDERS: PCP Family Medicine; Referring Provider Internal Medicine; Visit Provider Internal Medicine
DX: Z95.5 Presence of coronary angioplasty implant and graft (principal)
CPT/HCPCS: 93798

== ENCOUNTER 2022-09-02 11:39 | Inpatient (IN) | payer MEDICARE, SELFPAY ==
[2022-09-02 11:39] VITALS: BP 130/109; PULSE 81; RESP 16; TEMP 36.1; O2SAT 100; BMI 28.7
--- NOTE | 2022-09-02 12:20 | EDS_ITS ---
HPI History of Present Illness Chief Complaint: Shortness of Breath Detail of Chief Complaint: Shortness of breath, generalized weakness, lightheadedness, thirst and diar Informant: patient and family Onset/Context/Timing Onset: Days (Onset August 31) Context: Sudden Onset Timing: Intermittent Quality: Bloody diarrhea 7/day Location: GI Current Severity: Gone Maximum Severity: Moderate Worsened by: Diarrhea causes abdominal discomfort Relieved by: Nothing Associated Symptoms Associated Symptoms: Orthostatic symptoms and thirst Narrative Narrative: Patient is an elderly 71-year-old male with history of hypertension, coronary disease with placement of 3 stents December 2021. He is presently on Plavix. He does endorse bruising easily. He states his stool is watery and bloody. He has no history of inflammatory bowel disorder. He denies abdominal pain. He does endorse bruising easily. He denies headache, visual, ocular auditory symptoms. He denies rhinorrhea, congestion, postnasal drainage or sore throat. He denies chest discomfort or cough. He denies leg pain, swelling or discoloration. He denies vomiting. Prior similar symptoms: No Recent Illness/Hospitalization: No [facility] Medical History Atherosclerotic heart disease of [place] coronary artery without angina pectoris Coronary artery disease Hyperlipidemia Hypertension ST elevation NV (STEMI) (~11/29/21) Home Medications amlodipine 5 mg tablet mg PO DAILY 05/30/13 [History Last Taken Unknown] atenolol 25 mg tablet mg PO DAILY 05/30/13 [History Last Taken Unknown] lisinopril 5 mg tablet mg PO DAILY 05/30/13 [History Last Taken Unknown] pravastatin 40 mg tablet 40 mg PO DAILY 05/30/13 [History Last Taken Unknown] allopurinol 100 mg tablet 100 mg PO DAILY 03/25/22 [History Last Taken Unknown] ascorbic acid (vitamin C) 500 mg tablet 500 mg PO DAILY 03/25/22 [History Last Taken Unknown] aspirin 81 mg capsule 81 mg PO DAILY 03/25/22 [History Last Taken Unknown] atenolol 50 mg tablet 50 mg PO DAILY 03/25/22 [History Last Taken Unknown] atorvastatin 80 mg tablet 80 mg PO DAILY 03/25/22 [History Last Taken Unknown] cholecalciferol (vitamin D3) 125 mcg (5,000 unit) capsule 125 mcg PO DAILY 03/25/22 [History Last Taken Unknown] clopidogrel 75 mg tablet 75 mg PO DAILY 03/25/22 [History Last Taken Unknown] [id number] oil-omega 3-vit E 50 mg-550 mg-300 mg-30 unit capsule cap PO 03/25/22 [History Last Taken Unknown] diphenhydramine HCl 25 mg capsule (Benadryl) 25 mg PO QHS PRN Allergic Symptoms 03/25/22 [History Last Taken Unknown] doxepin 25 mg capsule 25 mg PO QHS 03/25/22 [History Last Taken Unknown] multivit with minerals-iron 18 mg-folic ac 400 mcg-vit K 25 mcg tablet (Adults Multivitamin) tab PO 03/25/22 [History Last Taken Unknown] nitroglycerin 0.3 mg sublingual tablet 0.4 mg sublingual Q5M PRN Chest Pain 03/25/22 [History Last Taken Unknown] Allergy/AdvReac Type Severity Reaction Status Date / Time hydrochlorothiazide Allergy Hives Verified 03/25/22 14:13 Surgical History Presence of coronary angioplasty implant and graft (~11/29/21) Social History (Updated 09/02/22 @ 12:[address] Marino Holguin MD) household members: none Smoking Status: Never smoker substance use type: does not use ROS ROS ED Constitutional Constitutional ED: Reports chills; Denies fever(s), subjective, sweats or weight loss Eyes Eyes: Denies blurry vision, change in vision or diplopia ENT ENT ED: Denies ear pain, rhinorrhea or sore throat Cardiovascular Cardiovascular: Reports other Details: Orthostatic dizziness ; Denies chest pain, orthopnea, palpitations, paroxysmal nocturnal dyspnea or racing heartbeat Respiratory/Chest Respiratory/Chest: Reports dyspnea and dyspnea on exertion; Denies cough, orthopnea, paroxysmal nocturnal dyspnea or sputum Gastrointestinal Gastrointestinal: Reports diarrhea and other Details: Bloody stool without mucus. He does report order. He denies antibiotic use in the past month. He denies ill contacts. He denies eating anything that tasted unusual. ; Denies abdominal pain, melena, nausea or vomiting Genitourinary Genitourinary ED: Denies dysuria, hematuria or urinary frequency Musculoskeletal Musculoskeletal: Denies arthralgias, back pain, myalgias or neck pain Integumentary Reports other Details: Bruising ; Denies Abrasions or rash Neurologic Neurologic: Denies paresthesias Endocrine Endocrinology: Denies cold intolerance or heat intolerance Hematologic/Lymphatic Hematologic/Lymphatic: Reports easy bruising; Denies easy bleeding EXAM Physical Exam Const Vital Signs: 09/02/22 11:39 09/02/22 12:32 09/02/22 12:51 Temperature 96.9 F L Temperature Source Temporal Pulse Rate 81 Pulse Rate [Lying] 64 Pulse Rate [Sitting (for 1 minute prior to obtaining)] 63 Pulse Rate [Standing (for 1 minute prior to obtaining)] 78 Respiratory Rate 16 Respiratory Pattern Normal Blood Pressure 130/109 H Blood Pressure [Lying] 126/75 H Blood Pressure [Sitting (for 1 minute prior to obtaining)] 122/73 H Blood Pressure [Standing (for 1 minute prior to obtaining)] 109/75 Blood Pressure Mean 116 Blood Pressure Mean [Lying] 92 Blood Pressure Mean [Sitting (for 1 minute prior to obtaining)] 89 Blood Pressure Mean [Standing (for 1 minute prior to obtaining)] 86 Pulse Ox 100 Oxygen Delivery Method Room Air Positive well nourished and well developed General Appearance ED: well developed and NAD; Negative for cyanotic, diaphoretic or pallor HEENT Reports dry mucous membranes HEENT Narrative: Head is atraumatic normocephalic. Ears normal. Nares patent. Uvula midline. No abnormality of the posterior pharynx. Mouth ED: Yes dry mucous membranes Mouth: dry mucous membranes Eyes PERRL and EOMs intact bilaterally General Eye ED: Negative for pale conjunctiva or scleral icterus Neck no lymphadenopathy, supple and no JVD Chest Wall inspection of chest normal and palpation of chest normal Resp normal respiratory effort and clear to auscultation bilaterally Cardio regular rate, regular rhythm, S1 normal heart sound, S2 normal heart sound and no murmurs GI normal to inspection, nondistended, normoactive bowel sounds, non-tender, non- distended and no masses; Negative for hepatosplenomegaly Auscultation: hyperactive bowel sounds Palpation: soft Rectal Exam: normal sphincter tone, prostate normal and other Other Details: Anoscopy was performed. ; Negative for tenderness Back/Spine Cervical Spine: Negative for cervical spine tenderness Thoracic Spine / Upper Back: Negative for thoracic spinal tenderness Extremity normal to inspection General Extremety ED: Negative for edema, tenderness or other findings General Extremity: Negative for edema or other findings Neuro oriented x3, CN's II-XII intact bilaterally and no sensory deficits noted Sensorium / Orientation: alert Motor Exam: strength 5/5 throughout Psych mental status grossly normal Skin no rashes or lesions noted, no wounds and skin turgor normal General Skin Exam: Negative for jaundice or pallor MDM MDM MDM Narrative Medical decision making narrative: Patient presents with bloody diarrhea and no abdominal pain. This may be due to viral or bacterial infection. With no abdominal pain and no abdominal tenderness doubt ischemic colitis. Because patient reports orthostatic symptoms orthostatic vital signs were obtained. CBC was obtained to assess white count and assess hemoglobin. Clinically he is not anemic. BMP was obtained because of his complaint of thirst orthostatic symptoms to assess renal function, electrolytes and specifically to evaluate for hypokalemia as well as CO2 anion gap. Stool was obtained for enteric pathogens. Using [employer] to compare laboratory results. Patient's had a significant drop in his hemoglobin from 14.4 and 44.2 on April 14 to 7.5. BUN and creatinine were normal. BUN was 10 with a creatinine of 0.68. SPECT patient's orthostatic dizziness is due to acute blood loss and BC. Because patient has elevated white count will start on ciprofloxacin and metronidazole. Will contact hospitalist for admission. Spoke with Dr. Jael Ramos. She will admit patient to [facility], full admission. She will contact Dr. Chacon regarding patient. Discussed CAT scan. She was informed I did not order CAT scan since he does not complain of abdominal pain a nd has a benign abdominal exam. Lab Data Attestation: I reviewed the patient's lab results. Lab results narrative: White count is elevated 16.4 thousand with shift. Patient has evidence of macrocytic anemia. BUN and creatinine are elevated 28 and 1.61 with a GFR of 45. Glucose is elevated 137 with a normal CO2 and anion gap Labs: Laboratory Results - last 24 hr 09/02/22 09/02/22 12:25 12:25 WBC 16.4 H RBC 2.63 L Hgb 9.3 L Hct 27.6 L MCV 104.9 H MCH 35.4 H MCHC 33.7 RDW Std Deviation 51.0 H RDW Coeff of Dorie 13.3 Plt Count 212 MPV 10.4 Immature Gran % (Auto) 0.700 Neut % (Auto) 86.3 H Lymph % (Auto) 4.3 L [place] % (Auto) 8.6 Eos % (Auto) 0.0 Baso % (Auto) 0.1 Absolute Neuts (auto) 14.1 H Absolute Lymphs (auto) 0.71 L Nucleated RBC % 0 Sodium 138 Potassium 4.8 Chloride 107 Carbon Dioxide 24.0 Anion Gap 7 BUN 28 H Creatinine 1.61 H Estim Creat Clear Calc 43.45 Est GFR (MDRD) Af Amer 55 L Est GFR (MDRD) Non-Af 45 L BUN/Creatinine Ratio 17.4 Glucose 137 H Calcium 9.2 Procedures Other Procedures Procedure(s): Anoscopy: Patient has no evidence of external or internal hemorrhoids. Rectal mucosa appears normal. Material above the scope reveals evidence of old blood. There is no black stool. There is no maroon-colored stool. Discharge Plan Dx/Rx/DC Orders Clinical Impression: Bloody diarrhea, Acute blood loss anemia, BC (acute kidney injury), Leukocytosis, History of hypertension Disposition Disposition: Acute Care Hospital [facility]
[2022-09-02 12:36] LABS: Absolute Lymphocyte Count 0.71 X10^3/uL (0.83-4.51); Absolute Neutrophil Count 14.1 X10^3/uL (2.0-7.7); Basophil# 0.02 X10^3/uL; Basophil% 0.1 % (0-1); Hematocrit 27.6 % (40-54); Hemoglobin 9.3 g/dL (13.0-16.5); Lymphocyte # 0.71 X10^3/ul (0.83-4.51); Lymphocyte % 4.3 % (19-41); Mean Corp Hgb Conc 33.7 g/dL (32-36); Mean Corpuscular Hgb 35.4 pg (27.0-32.0); Mean Corpuscular Volume 104.9 fL (80-94); Mean Platelet Vol. 10.4 fl (6.2-12.0); Monocyte# 1.41 X10^3/uL; Monocyte% 8.6 % (0-10); NRBC Flagged by Analyzer 0 % (0-5); Neutrophil # 14.12 X10^3/uL (2.7-7.7); Neutrophil % 86.3 % (47-70); Platelet Count 212 K/mm3 (150-450); RBC Distribution Width CV 13.3 % (11.6-14.6); Red Blood Count 2.63 M/mm3 (4.6-6.2); White Blood Count 16.4 K/mm3 (4.4-11.0)
[2022-09-02] MEDS: 0.9% Normal Saline 1,000 ML 1000 ML IV (12:37)
[2022-09-02 12:46] LABS: Anion Gap 7 (5-15); BUN 28 mg/dL (7-18); BUN/Creat Ratio 17.4 RATIO (10-20); Calcium,Total 9.2 mg/dL (8.5-10.1); Chloride 107 mmol/L (98-107); Creatinine, Serum 1.61 mg/dL (0.70-1.30); EST Glomerular Filtration Rate 45 mL/min (>60); Est Glom Filt Rate - Afr Amer 55 mL/min (>60); Estimated Creatinine Clearance 43.45 ml/min; Glucose 137 mg/dL (74-106); Potassium 4.8 mmol/L (3.5-5.1); Sodium Level 138 mmol/L (136-145)
[2022-09-02 12:51] VITALS: BP 109/75; BP 122/73; BP 126/75; PULSE 63; PULSE 64; PULSE 78
--- NOTE | 2022-09-02 14:34 | PCM.HP.STD ---
HPI - General General Date of Admission: 09/02/22 Date of Service: 09/02/22 Chief Complaint: Lightheadedness, dizziness, bloody diarrhea. HPI Narrative The patient is a 71 y/o M w/ PMHx: EtOH abuse (6 pack beer daily x 1 yr since passing of his ) with concurrent untreated Depression, HTN, HLD, CAD s/p PCI x 3 12/2021 of note, Gout who presents to the [facility] ED on 09/02/22 with history of increasing fatigue, malaise, generalized weakness and lightheadedness with recent onset starting Monday prior to presentation abdominal cramping and discomfort with loose bloody stools reportedly bloody in appearance with lightheadedness especially with activity, positional changes with no recent URI type symptoms nor any fevers or chills or nausea or emesis but given ongoing symptoms prompted ED evaluation. He notes having at least 7 watery bloody stools each day. Patient does report that the abdominal cramping that occurs with a loose bloody stools are not necessarily painful and very short-lived. In the ED lengthy discussion regarding his alcohol use and suspected underlying depression which she confirms with history of his passing approximately 1 year prior which is when he started to also drink heavily. Son present in the room during conversations and did encourage his father to be honest. Work-up in the ED included T96.9, heart rate 81, BP 130/109, respiratory rate 16, 100% on room air, orthostatics with heart rate variation 64-78, BP variation 126/75 to 109/75, CBC with WBC 16.4, hemoglobin 9.3, MCV 104.9, platelet 212 with left shift and lymphopenia, BMP with BUN/creatinine 28/1.61, glucose 137. In the ED patient ministered 1 L normal saline as well as IV cipro and IV flagyl. From [facility] system last noted baseline labs 04/14/22 14.4, 44.2, macrocytic, 04/14/22 BUN/Cr 10/0.68. [facility] Medical History Anxiety Atherosclerotic heart disease of [place] coronary artery without angina pectoris Chest pain Coronary artery disease Depression Hyperlipidemia Hypertension Myocardial infarct ST elevation [place] (STEMI) (~11/29/21) Home Medications allopurinol 100 mg tablet 100 mg PO DAILY GOUT 03/25/22 [History Last Taken 09/02/22] atenolol 50 mg tablet 50 mg PO DAILY HEART 03/25/22 [History Last Taken 09/02/22] atorvastatin 80 mg tablet 80 mg PO DAILY CHOLESTEOL 03/25/22 [History Last Taken 09/01/22] clopidogrel 75 mg tablet 75 mg PO DAILY BLOOD THINNER 03/25/22 [History Last Taken 09/02/22] doxepin 25 mg capsule 25 mg PO QHS 03/25/22 [History Last Taken Unknown] aspirin 81 mg tablet,delayed release 81 mg PO DAILY HEALTH MAINTENANCE 09/02/22 [History Last Taken 09/02/22] ezetimibe 10 mg tablet 10 mg PO DAILY CHOLESTEROL 09/02/22 [History Last Taken 09/01/22] nitroglycerin 0.4 mg sublingual tablet 0.4 mg sublingual UD PRN Chest Pain 09/02/22 [History Last Taken Unknown] ofloxacin 0.3 % eye drops 1 drp EACH EYE 4X/DAY SURGERY 09/02/22 [History Last Taken 09/02/22] Allergy/AdvReac Type Severity Reaction Status Date / Time hydrochlorothiazide Allergy Hives Verified 03/25/22 14:13 Family History (Updated 09/02/22 @ 18:[address] Jael Ramos MD) Mother COPD (chronic obstructive pulmonary disease) Lung cancer Father Heart disease Hypertension Myocardial infarction age 53 following MT. Surgical History (Updated 09/02/22 @ 18:[address] Jael Ramos MD) Presence of coronary angioplasty implant and graft (~11/29/21) S/P cataract extraction Social History (Updated 09/02/22 @ 18:[address] Jael Ramos MD) household members: none Smoking Status: Former smoker how long ago did patient quit smoking: Smoked from age 18, 1 ppd x 4 years and then quit. alcohol intake: current alcohol intake frequency: 3 or more drinks per day details: Drinks 6 pack beer/day x 1 year following of his . substance use type: does not use ROS ROS Narrative Admission Review of Systems: CONSTITUTIONAL: No weight loss, fever, chills, + weakness or fatigue. HEENT: Eyes: No visual loss, blurred vision, double vision or yellow sclerae. Ears, Nose, Throat: No hearing loss, sneezing, congestion, runny nose or sore throat. SKIN: No rash or itching, lesions, wounds. CARDIOVASCULAR: + Lightheadedness, dizziness. No chest pain, chest pressure or chest discomfort, palpitations, edema, orthopnea, syncopal events. RESPIRATORY: No shortness of breath, cough or sputum, wheezing, hemoptysis. GASTROINTESTINAL: + anorexia, abdominal cramping, bloody appearing diarrhea, No nausea, vomiting, melena. GENITOURINARY: No dysuria, frequency, urgency or retention. NEUROLOGICAL: + Lightheadedness, dizziness. No headache, syncope, paralysis, ataxia, numbness or tingling in the extremities, focal weakness, change in bowel or bladder control, seizure. MUSCULOSKELETAL:+ muscle, back pain, joint pain or stiffness. HEMATOLOGIC: + anemia, bleeding or bruising. LYMPHATICS: No enlarged nodes. No history of splenectomy. PSYCHIATRIC: + admits depression or anxiety. ENDOCRINOLOGIC: No reports of sweating, cold or heat intolerance. No polyuria or polydipsia. ALLERGIES: No history of asthma, hives, eczema or rhinitis. Vital Signs Vital Signs Vital Signs: 09/02/22 11:39 09/02/22 12:32 09/02/22 12:51 Temperature 96.9 F L Temperature Source Temporal Pulse Rate 81 Pulse Rate [Lying] 64 Pulse Rate [Sitting (for 1 minute prior to obtaining)] 63 Pulse Rate [Standing (for 1 minute prior to obtaining)] 78 Respiratory Rate 16 Respiratory Pattern Normal Blood Pressure 130/109 H Blood Pressure [Lying] 126/75 H Blood Pressure [Sitting (for 1 minute prior to obtaining)] 122/73 H Blood Pressure [Standing (for 1 minute prior to obtaining)] 109/75 Blood Pressure Mean 116 Blood Pressure Mean [Lying] 92 Blood Pressure Mean [Sitting (for 1 minute prior to obtaining)] 89 Blood Pressure Mean [Standing (for 1 minute prior to obtaining)] 86 Pulse Ox 100 Oxygen Delivery Method Room Air Weight Weight: 200 lb Body Mass Index (BMI) 28.7 Physical Exam Narrative Physical Examination: General: Awake, alert, oriented x 3 and cooperative, extremely flat affect, seated upright in ED bed, denies any complaints. Skin: Mildly pale color, normal turgor, no icterus, no cyanosis. HEENT: AT/NC, EOMI, PERRLA, moderately dry MM, no carotid bruits or JVD noted. Lungs: Mildly diminished, greater bases, appropriate effort, no rales, ronchi or wheezing. Heart: Currently regular rate and rhythm; no gallop, rub audible. Abdomen: Soft, NTTP, ND, notably hyperactive BS, no HSM. Extremities: No cyanosis, clubbing, or edema. Neurological: Patient awake, alert, oriented as noted, cognitive function intact; pupils equally reactive to light and accommodation, cranial nerves II-XII grossly normal, moving all 4 extremities, no focal deficits, strength moderately to severely global decrease secondary to acute complaints. Psychiatric: Affect appears flat, fatigued, does admit to depression that is untreated and undiagnosed. Results Lab / Micro Data Result Diagrams: 09/02/22 16:35 09/02/22 12:25 Labs: Laboratory Results - last 24 hr 09/02/22 12:25: WBC 16.4 H, RBC 2.63 L, Hgb 9.3 L, Hct 27.6 L, MCV 104.9 H, MCH 35.4 H, MCHC 33.7, RDW Std Deviation 51.0 H, RDW Coeff of Dorie 13.3, Plt Count 212, MPV 10.4, Immature Gran % (Auto) 0.700, Neut % (Auto) 86.3 H, Lymph % (Auto) 4.3 L, [place] % (Auto) 8.6, Eos % (Auto) 0.0, Baso % (Auto) 0.1, Absolute Neuts (auto) 14.1 H, Absolute Lymphs (auto) 0.71 L, Nucleated RBC % 0 09/02/22 12:25: Sodium 138, Potassium 4.8, Chloride 107, Carbon Dioxide 24.0, Anion Gap 7, BUN 28 H, Creatinine 1.61 H, Estim Creat Clear Calc 43.45, Est GFR (MDRD) Af Amer 55 L, Est GFR (MDRD) Non-Af 45 L, BUN/Creatinine Ratio 17.4, Glucose 137 H, Calcium 9.2 Assessment & Plan Assessment/Plan (1) Bloody diarrhea: PLAN: Plan The patient is a 71 y/o M w/ PMHx: EtOH abuse (6 pack beer daily x 1 yr since passing of his ) with concurrent untreated Depression, HTN, HLD, CAD s/p PCI x 3 12/2021 of note, Gout who presents to the [facility] ED on 09/02/22 with history of increasing fatigue, malaise, generalized weakness and lightheadedness with recent onset starting Monday prior to presentation abdominal cramping and discomfort with loose bloody stools reportedly bloody in appearance with lightheadedness especially with activity, positional changes. #1. Persistent diarrhea with bloody appearance with decreased intake with concern for near syncope, lightheadedness, dizziness, orthostasis with associated ABLA as noted #2 and also BC #3: We will admit to MS telemetry, maintain on fall precautions, continue judicious hydration, will obtain C. difficile as well as enteric stool pathogen, notable issues in the community with diarrheal illnesses of note recently including rotavirus most prominently, clears until midnight then NPO status given concurrent presentation #2, as needed antiemetic, if abdominal discomfort onset with rebound or guarding low threshold to obtain CT, will in the interim obtain procalcitonin as well and initiate IV zosyn until cultures return especially given #2 and EtOH abuse history. #2. Acute on Chronic Macrocytic anemia suspected secondary to ABLA associated with Acute GI bleed with #1 complicated by EtOH abuse: Admission Hgb 9.3, MCV 104.9 with last 04/14/22 CBC w/ Hgb 14.4, Hct 44.2, macrocytic. Given acute presentation with concerns for bloody diarrhea x 3 days with profound decreased Hgb on dual antiplatelet therapy will temporarily hold (took on day of presentation of note, would restart following intervention per GI, will continue to trend HH, formally obtain guiac, allow clears only with then NPO after midnight, maintain on IV PPI with GI consultation. #3. Acute kidney injury: Suspected to recent acute GI losses and hemorrhagic losses, admission BUN/Cr 28/1.61, prior baseline 04/14/22 BUN/Cr 10/0.68, will hydrate, hold nephrotoxic medications and repeat chemistry in AM. If no improvement would plan FeNa and renal ultrasound assessment. Urinalysis requested. #4. Hyperglycemia: Possibly reactive, mild, admission glucose 137, will obtain hemoglobin A1c to be cautious. #5. CAD: Status post PCI with most recently 3 stents placed 12/2021, will hold asa and Plavix temporarily given severity of Hgb drop and once evaluated plan resumption single agent only, will temporally also hold lisinopril given BC in addition we will temporarily hold atenolol given significant orthostatic sensation as well, add back once appropriate, continue statin therapy. #6. Hypertension: Given normal range BP and orthostatic complaints we will temporarily hold hypertensive regimen, continue judicious hydration, add back regimen once appropriate, as needed IV hydralazine in interim. #7. Hyperlipidemia: Continue home statin regimen. #8. Overweight: Weight loss and lifestyle changes encouraged. #9. Gout: We will continue patient home allopurinol regimen. #10. EtOH Abuse: Patient notes routine consumption of sixpack of beer per day. Will maintain on CIWA protocol, MVI, thiamine and folic acid. Patient interested in sobriety therefore will consult case management for substance use assistance. Discussed at length with patient importance of also treating his depression as this is likely led to his alcohol consumption following the of his . #11. Depression, undiagnosed, untreated: Patient does admit to ongoing depression since his 's passing which is led to him drinking nearly sixpack of beer daily, discussed healthy methods of treating and dealing with his depression are needed at this time and will consult case management for close follow-up for consideration medication as well as therapy. #12. DVT prophylaxis: SCDs, defer chemoprophylaxis given concern for bloody diarrhea. #13. CODE status: Patient DELFINA is his son Dawit and living will is in place. Discussed CODE status at length including difference between FULL code, DNR-CCA and DNR-CC status. Following discussions about the differences in these status, requested Full Code status. Advanced Care Planning Face to Face Time: 16 minutes. Admission Evaluation Time spent evaluating chart, patient history, patient evaluation, care planning and discussion with specialists: 76 minutes. Charges/Coding Visit Charges Inpatient E&M: 84400 Init Hosp L3 Procedures Hospitalists Procedures: 12547 Advncd Care Plan 30 Min
[2022-09-02 14:52] VITALS: BP 122/66; PULSE 64; RESP 18; O2SAT 98
[2022-09-02] MEDS: metroNIDAZOLE 500 MG/100 ML BAG 100 MG IV (14:55)
[2022-09-02 15:26] LABS: Magnesium 2.2 mg/dL (1.6-2.6)
[2022-09-02 15:31] VITALS: BMI 26.6
[2022-09-02] MEDS: Ciprofloxacin 400 MG/200 ML BAG 200 MG IV (15:47)
[2022-09-02 15:48] VITALS: BP 138/78; PULSE 66; RESP 16; TEMP 36.8; O2SAT 100
[2022-09-02 16:04] VITALS: BMI 26.9
[2022-09-02 16:05] VITALS: BP 128/73; PULSE 67; RESP 13; TEMP 36.4; O2SAT 100
[2022-09-02 16:10] LABS: Phosphorus 3.7 mg/dL (2.5-4.9)
[2022-09-02] MEDS: 0.9% Normal Saline 1,000 ML 125 ML IV ×2 (16:22→23:46)
[2022-09-02 16:50] LABS: Hematocrit 24.8 % (40-54); Hemoglobin 8.3 g/dL (13.0-16.5)
--- NOTE | 2022-09-02 17:16 | CON.PCM.GI_ITS ---
HPI Consult Data Date of Consult: 09/02/22 HPI Narrative Reason for Consultation: GI bleed HPI Narrative: NICO LICONA, is a 71-year-old male with history of hypertension, coronary disease with placement of 3 stents December 2021.? He is presently on Plavix.? He does endorse bruising easily.? He states his stool is watery and bloody.? He has no history of inflammatory bowel disorder.? He denies abdominal pain.? He does endorse bruising easily. Bleeding started happening on 08/31/2022. He has never had any GI bleeding in the past. In the ED he was covered to have a hemoglobin of 9.6 and is currently down 8.3. He has elevated BUN/creatinine ratio 28:1 0.6. He denies any history of chronic kidney disease. His platelet count is normal at 212 but his MCV is elevated at 103.6. He has no history of alcoholism or liver disease. He has also no bone marrow issues. He denies headache, visual, ocular auditory symptoms.? He denies rhinorrhea, congestion, postnasal drainage or sore throat.? He denies chest discomfort or c ough.? He denies leg pain, swelling or discoloration.? He denies vomiting. [facility] Medical History (Updated 09/02/22 @ 15:42 by Jeanette Romero) Anxiety Atherosclerotic heart disease of [place] coronary artery without angina pectoris Chest pain Coronary artery disease Depression Hyperlipidemia Hypertension Myocardial infarct ST elevation [place] (STEMI) (~11/29/21) Home Medications allopurinol 100 mg tablet 100 mg PO DAILY GOUT 03/25/22 [History Last Taken 09/02/22] atenolol 50 mg tablet 50 mg PO DAILY HEART 03/25/22 [History Last Taken 09/02/22] atorvastatin 80 mg tablet 80 mg PO DAILY CHOLESTEOL 03/25/22 [History Last Taken 09/01/22] clopidogrel 75 mg tablet 75 mg PO DAILY BLOOD THINNER 03/25/22 [History Last Taken 09/02/22] doxepin 25 mg capsule 25 mg PO QHS 03/25/22 [History Last Taken Unknown] aspirin 81 mg tablet,delayed release 81 mg PO DAILY HEALTH MAINTENANCE 09/02/22 [History Last Taken 09/02/22] ezetimibe 10 mg tablet 10 mg PO DAILY CHOLESTEROL 09/02/22 [History Last Taken 09/01/22] nitroglycerin 0.4 mg sublingual tablet 0.4 mg sublingual UD PRN Chest Pain 09/02/22 [History Last Taken Unknown] ofloxacin 0.3 % eye drops 1 drp EACH EYE 4X/DAY SURGERY 09/02/22 [History Last Taken 09/02/22] Allergy/AdvReac Type Severity Reaction Status Date / Time hydrochlorothiazide Allergy Hives Verified 03/25/22 14:13 Surgical History (Updated 09/02/22 @ 15:42 by Jeanette Romero) History of coronary artery stent placement Presence of coronary angioplasty implant and graft (~11/29/21) Social History household members: none Smoking Status: Never smoker substance use type: does not use ROS Review of Systems ROS Unobtainable: other Constitutional Constitutional: Denies fatigue, fever(s), poor appetite, weight gain or weight loss ENT HEENT: Denies mouth lesions Cardiovascular Cardiovascular: Denies abdominal bloating, abdominal edema or abdominal pain Respiratory/Chest Respiratory/Chest: Denies change in mental status, change in phlegm color, chest congestion or chest tightness Gastrointestinal Gastrointestinal: Denies belching, bloating, change in bowel habits, change in stool character, chewing difficulty, coffee ground emesis, constipation, cramping, diarrhea, dyspepsia, dysphagia, early satiety, excessive flatus, fecal incontinence, heartburn, hematemesis, hematochezia, hemorrhoids, loose stools, melena, nausea, odynophagia, rectal bleeding, tenesmus, vomiting or weight changes Genitourinary Genitourinary: Denies abdominal discomfort, burning urination or itching Musculoskeletal Musculoskeletal: Reports as per HPI; Denies muscle weakness or myalgias Integumentary Integumentary: Denies jaundice Neurologic Neurologic: Denies lack of coordination or weakness Psychiatric Psychiatric: Denies confusion, depression, memory loss, mood swings, paranoia or suicidal ideation Endocrine Endocrinology: Denies systems reviewed and no addt'l complaints, except as documented Hematologic/Lymphatic Hematologic/Lymphatic: Denies anemia, easy bleeding, easy bruising or lymphadenopathy Allergic/Immunologic Allergic/Immunologic: Denies systems reviewed and no addt'l complaints, except as documented Physical Exam Const alert General Appearance: cooperative Orientation / Consciousness: oriented to person HEENT hearing grossly normal bilaterally Head and Scalp: normal to inspection Face and Sinus: face symmetric Nose: external nose normal Mouth: oral and palatal mucosa normal Eyes conjunctivae normal General Eye: normal appearance of both eyes Neck full ROM General: normal visual inspection Lymph Lymphatic: no lymphadenopathy noted Chest inspection of chest normal and palpation of chest normal Chest: symmetrical chest wall rise Resp normal respiratory effort Effort and Inspection: able to speak in complete sentences Cardio regular rate GI non-distended Percussion: normal to percussion Rectal Exam: deferred Neuro Speech: speech normal Gait (Neuro): normal gait Lab / Micro Data Result Diagrams: 09/02/22 16:35 09/02/22 12:25 Labs: Laboratory Results - last 24 hr 09/02/22 12:25: WBC 16.4 H, RBC 2.63 L, Hgb 9.3 L, Hct 27.6 L, MCV 104.9 H, MCH 35.4 H, MCHC 33.7, RDW Std Deviation 51.0 H, RDW Coeff of Dorie 13.3, Plt Count 212, MPV 10.4, Immature Gran % (Auto) 0.700, Neut % (Auto) 86.3 H, Lymph % (Auto) 4.3 L, [place] % (Auto) 8.6, Eos % (Auto) 0.0, Baso % (Auto) 0.1, Absolute Neuts (auto) 14.1 H, Absolute Lymphs (auto) 0.71 L, Nucleated RBC % 0 09/02/22 12:25: Sodium 138, Potassium 4.8, Chloride 107, Carbon Dioxide 24.0, Anion Gap 7, BUN 28 H, Creatinine 1.61 H, Estim Creat Clear Calc 43.45, Est GFR (MDRD) Af Amer 55 L, Est GFR (MDRD) Non-Af 45 L, BUN/Creatinine Ratio 17.4, Glucose 137 H, Calcium 9.2 09/02/22 12:25: Magnesium 2.2 09/02/22 12:25: Phosphorus 3.7 09/02/22 16:35: Hgb 8.3 L, Hct 24.8 L Assessment & Plan Assessment/Plan (1) Bloody diarrhea: PLAN: Plan The differential diagnosis for acute GI bleeding in this gentleman is diverticular bleeding, angiodysplasia, less likely neoplasia, stercoral ulcer, upper GI bleed with rapid transit. He should undergo an upper lower endoscopy to evaluate his upper lower GI tract. I would transfuse for hemoglobin less than 8. He should get iron studies, B12, folic acid and an ultrasound of the liver to look for any signs of liver disease. He was explained alternatives, risk, benefits including not withstanding bleeding, infection, sepsis, perforation, need for emergent surgery and . He will have an ASA of 3. Charges/Coding Visit Charges Inpatient E&M: 09366 Init Hosp L2
[2022-09-02 18:06] LABS: Procalcitonin 0.18 ng/mL (0.00-0.09)
--- NOTE | 2022-09-02 18:32 | EKG12_ITS ---
Test Reason : CP Blood Pressure : / mmHG Vent. Rate : 070 BPM Atrial Rate : 068 BPM P-R Int : 000 ms QRS Dur : 166 ms QT Int : 488 ms P-R-T Axes : 000 -47 135 degrees QTc Int : 527 ms Normal sinus rhythm with 1st degree A-V block Left axis deviation Left bundle branch block Abnormal ECG When compared with ECG of 03-SEP-2022 09:17, MANUAL COMPARISON REQUIRED, DATA IS UNCONFIRMED Confirmed by ELFEGO LUNA, CECILIO ([id number]), web editor CAREY BAUER ([id number]) on 09/06/2022 7:46:09 AM Referred By: FRIEND Confirmed By:CECILIO TELLES MD
[2022-09-02 20:14] LABS: Hematocrit 23.5 % (40-54); Hemoglobin 7.9 g/dL (13.0-16.5)
[2022-09-02 20:30] LABS: International Normalized Ratio 1.2; Prothrombin Time (Protime)PT. 14.4 SECONDS (11.7-14.9)
[2022-09-02 20:31] LABS: Partial Thromboplast Time 25.3 Seconds (24.1-36.2)
[2022-09-02 20:39] LABS: AST(SGOT) 20 U/L (15-37); Alanine Aminotransfer ALT/SGPT 18 U/L (16-61); Alkaline Phosphatase 81 U/L (45-117); Bilirubin, Direct 0.18 mg/dL (0.00-0.30); Globulin 3.2 g/dL (2.2-4.2); Protein, Total 6.2 g/dL (6.4-8.2)
[2022-09-02 20:54] VITALS: BP 115/63; PULSE 62; RESP 14; TEMP 37.1; O2SAT 99
[2022-09-02] MEDS: Bisacodyl 5 MG Tablet 20 MG PO (20:56)
[2022-09-02] MEDS: Polyethylene Glycol 3350 BOWEL PREP PO (20:57)
[2022-09-02] MEDS: Atorvastatin Calcium 80 MG Tablet PO (21:21)
[2022-09-02 23:51] LABS: Hematocrit 23.7 % (40-54); Hemoglobin 7.6 g/dL (13.0-16.5)
[2022-09-03] VITALS (15 sets, daily range): BP systolic 100–150; BP diastolic 54–92; PULSE 58–83; RESP 14–18; TEMP 36.4–37.2; O2SAT 94–100
[2022-09-03 07:48] LABS: Absolute Lymphocyte Count 1.13 X10^3/uL (0.83-4.51); Absolute Neutrophil Count 7.2 X10^3/uL (2.0-7.7); Basophil# 0.03 X10^3/uL; Basophil% 0.3 % (0-1); Eosinophil# 0.15 X10^3/uL; Eosinophils% 1.6 % (0-5); Hematocrit 22.2 % (40-54); Hemoglobin 7.1 g/dL (13.0-16.5); Lymphocyte # 1.13 X10^3/ul (0.83-4.51); Lymphocyte % 11.7 % (19-41); Mean Corpuscular Hgb 35.1 pg (27.0-32.0); Mean Corpuscular Volume 109.9 fL (80-94); Mean Platelet Vol. 10.7 fl (6.2-12.0); Monocyte# 1.07 X10^3/uL; Monocyte% 11.1 % (0-10); NRBC Flagged by Analyzer 0.2 % (0-5); Neutrophil # 7.21 X10^3/uL (2.7-7.7); Neutrophil % 74.7 % (47-70); Platelet Count 155 K/mm3 (150-450); RBC Distribution Width CV 13.4 % (11.6-14.6); RBC Distribution Width SD 53.5 fl (35.1-43.9); Red Blood Count 2.02 M/mm3 (4.6-6.2); White Blood Count 9.7 K/mm3 (4.4-11.0)
--- NOTE | 2022-09-03 08:05 | COLBX_PTH ---
PATIENT: NICO LICONA LOC: [facility] U#:[id number] AGE/SX: 71/M ROOM: [facility] RE09/02/[address]: Dr. Obdulio Crespo MD : 1950 BED: 1 DIS: 09/10/2022 SPEC #: [id number] RECD: 09/03/22 11:34 STATUS: ROSEMARIE ALVAREZ #: [id number] SHARON: 09/03/22 08:[address]: Ahmet Chacon DEPT: SURGICAL PATHOLOGY RECD BY: Allison Hardy ENTERED: 09/05/22 11:24 SP TYPE: COLON BX OTHR DR: MD Dr. Lukas Reynaga MD Dr. Jeffrey Burkey, MD Dr. Nana Yaa Koram, MD Dr. Nicholas F Kotsonis, MD Tissues: A - Cecum, NOS B - Sigmoid colon biopsy Procedures: Surgery Specimen Level IV Comments: @ Ordering doctor for SUIV edited from to @ by ANTOINE at 09/05/22 1442 @ Submitting doctor edited from to @ by ESAOD at 09/05/22 1442 HEADER OPERATION: Colonoscopy (MAC), hot snare, EPI injection PRE-OP DIAGNOSIS: Bloody diarrhea TISSUE SUBMITTED: A ? Cecal polyp, B ? Sigmoid polyp MICROSCOPIC DIAGNOSIS A. Cecal polyp, biopsy: Fragments of tubular adenoma. B. Sigmoid colon polyp, biopsy: Fragments of tubular adenoma. AM:nasima 09/06/2022 MICROSCOPIC DESCRIPTION Slides are reviewed. GROSS DESCRIPTION A - Received in fixative is one container labeled with the patient's name and designated cecal polyp. The specimen consists of multiple irregular fragments of light [place] soft tissue that in aggregate measure 2.0 x 0.5 x 0.1 cm. The specimen is totally submitted in one cassette. B - Received in fixative is one container labeled with the patient's name and designated sigmoid polyp. The specimen consists of multiple irregular fragments of light [place] soft tissue that in aggregate measure 1.5 x 0.2 x 0.1 cm. The specimen is totally submitted in one cassette. / TYLER:nasima 09/05/2022 TC:5 CPT: 63482 x2
[2022-09-03 08:30] LABS: ALB/GLOB Ratio 0.9 RATIO (0.9-2.4); AST(SGOT) 20 U/L (15-37); Alanine Aminotransfer ALT/SGPT 16 U/L (16-61); Albumin, Serum 2.6 g/dL (3.2-5.0); Alkaline Phosphatase 72 U/L (45-117); Anion Gap 6 (5-15); BUN 14 mg/dL (7-18); BUN/Creat Ratio 16.2 RATIO (10-20); Chloride 112 mmol/L (98-107); Creatinine, Serum 0.86 mg/dL (0.70-1.30); EST Glomerular Filtration Rate 93 mL/min (>60); Est Glom Filt Rate - Afr Amer 112 mL/min (>60); Estimated Creatinine Clearance 81.35 ml/min; Glucose 99 mg/dL (74-106); Potassium 3.6 mmol/L (3.5-5.1); Protein, Total 5.6 g/dL (6.4-8.2); Sodium Level 142 mmol/L (136-145)
[2022-09-03] MEDS: Epinephrine (1 mg/ml) 1 MG/ML VIAL (08:30)
[2022-09-03] MEDS: 0.9% Saline Lock 10 ML Syringe IV (08:30)
--- NOTE | 2022-09-03 09:03 | OP.CCLET_ITS ---
09/03/2022 Valeriano Beasley MD Re : Colonoscopy procedure for Nazario Hutton Dear Dr. Beasley This procedure was performed on Saturday, September 03, 2022. My impressions and recommendations are as follows: Impressions : - Non-bleeding internal hemorrhoids. - Diverticulosis in the recto-sigmoid colon, in the sigmoid colon, in the descending colon, at the splenic flexure and in the transverse colon. Injected. - Two 1 to 2 mm polyps in the sigmoid colon and in the cecum, removed using lift and cut and a hot snare. Resected and retrieved. Treated with argon plasma coagulation (APC). - Two bleeding colonic angiodysplastic lesions. Treated with argon plasma coagulation (APC). Recommendations : - Return patient to [facility] for ongoing care. - Full liquid diet today. - No aspirin, ibuprofen, naproxen, or other non-steroidal anti-inflammatory drugs for 7 days after polyp removal. - Repeat colonoscopy in 3 years for surveillance. My findings are described in the full procedure note, which is enclosed. If I can be of further assistance, please feel free to contact me at . Sincerely, Ahmet Chacon, 09/03/2022 9:02:04 AM This report has been signed electronically.
--- NOTE | 2022-09-03 09:03 | CT_ITS ---
INDICATION: GI bleeding EXAMINATION: CT ABDOMEN AND PELVIS WITH CONTRAST - CT Abdomen And Pelvis W/ Contrast Injection TECHNIQUE: Helically acquired images were obtained of the abdomen and pelvis following IV contrast. A radiation dose optimization technique was used for this scan. IV Contrast dosage and agent: Oral contrast: None. COMPARISON: None. FINDINGS: LOWER CHEST: There is minimal bibasilar atelectasis and/or scarring within the lower lobes. There are left lower lobe granulomas. No there are coronary artery calcifications. No cardiomegaly or pericardial effusion. LIVER: Homogeneous. No focal mass. GALLBLADDER AND BILIARY TREE: No calcified gallstones. No gallbladder distension or wall edema. No intra- or extrahepatic biliary ductal dilation. PANCREAS: No focal cystic or solid mass. SPLEEN: There are splenic granulomas. ADRENAL GLANDS: No nodules. KIDNEYS AND URETERS: There are bilateral nonobstructing renal calculi measuring up to 10.9 mm on the right and 4.5 mm on the left. No hydronephrosis. PERITONEUM: No ascites or free air. No other fluid collection. BOWEL: There are scattered diverticula arising from the colon. There is circumferential wall thickening of the rectum. LYMPH NODES: No enlarged mesenteric or retroperitoneal lymph nodes. VESSELS: Aorta is non-dilated. There are peripheral calcifications of the abdominal aorta. URINARY BLADDER: Unremarkable. REPRODUCTIVE ORGANS: The prostate gland is enlarged. ABDOMINAL WALL: No discrete abdominal or pelvic wall hernia. BONES: There are degenerative changes of the visualized thoracic and lumbar spine. CT/Abdomen/Pelvis W IV Cont ONLY IMPRESSION: Circumferential wall thickening of the rectum, may be secondary to proctitis and or a neoplastic process. Colonic diverticulosis. Bilateral nonobstructing renal calculi measuring up to 10.9 mm on the right. Enlarged prostate gland. Atherosclerosis. Electronically Signed: Tess Horne MD at 10:42 EST ,
--- NOTE | 2022-09-03 09:03 | OP.COLON_ITS ---
Patient Name: Nazario Hutton Procedure Date: 09/03/2022 7:45 AM Date of : 1950 Age: 71 Procedure: Colonoscopy Indications: Hematochezia Providers: Ahmet Chacon DO Medicines: Monitored Anesthesia Care Patient Profile: This is a 71 year old male. Refer to note in patient chart for documentation of history and physical. Last Colonoscopy: 5 years ago. Complications: No immediate complications. Procedure: Pre-Anesthesia Assessment: - Prior to the procedure, a History and Physical was performed, and patient medications and allergies were reviewed. The patient is competent. The risks and benefits of the procedure and the sedation options and risks were discussed with the patient. All questions were answered and informed consent was obtained. Patient identification and proposed procedure were verified by the physician in the pre-procedure area. Mental Status Examination: alert and oriented. Airway Examination: normal oropharyngeal airway and neck mobility. Respiratory Examination: clear to auscultation. CV Examination: normal. Prophylactic Antibiotics: The patient does not require prophylactic antibiotics. Prior Anticoagulants: The patient has taken no previous anticoagulant or antiplatelet agents. ASA Grade Assessment: III - A patient with severe systemic disease. After reviewing the risks and benefits, the patient was deemed in satisfactory condition to undergo the procedure. The anesthesia plan was to use monitored anesthesia care (MAC). Immediately prior to administration of medications, the patient was re-assessed for adequacy to receive sedatives. The heart rate, respiratory rate, oxygen saturations, blood pressure, adequacy of pulmonary ventilation, and response to care were monitored throughout the procedure. The physical status of the patient was re-assessed after the procedure. After I obtained informed consent, the scope was passed under direct vision. Throughout the procedure, the patient's blood pressure, pulse, and oxygen saturations were monitored continuously. The Colonoscope was introduced through the anus and advanced to the terminal ileum. The colonoscopy was performed without difficulty. The patient tolerated the procedure well. The quality of the bowel preparation was adequate. Scope In: 8:08:44 AM Scope Withdrawal Time 0 hours 37 minutes 30 seconds Scope Out: 8:49:48 AM Total Procedure Duration Time 0 hours 41 minutes 4 seconds Findings: The perianal and digital rectal examinations were normal. Non-bleeding internal hemorrhoids were found during retroflexion. The hemorrhoids were moderate, medium-sized and Grade II (internal hemorrhoids that prolapse but reduce spontaneously). Multiple small and large-mouthed diverticula were found in the recto-sigmoid colon, sigmoid colon, descending colon, splenic flexure and transverse colon. Area was successfully injected with 5 mL of a 1:10,000 solution of epinephrine for drug delivery. Estimated blood loss was minimal. Two sessile polyps were found in the sigmoid colon and cecum. The polyps were 1 to 2 mm in size. These polyps were removed with a lift and cut technique using a hot snare. Resection and retrieval were complete. Verification of patient identification for the specimen was done. Estimated blood loss: none. Coagulation for bleeding prevention using argon plasma at 0.3 liters/minute and 20 lozada was successful. Estimated blood loss was minimal. Two small localized angiodysplastic lesions with bleeding were found in the ascending colon. Coagulation for hemostasis using argon plasma at 0.3 liters/minute and 20 lozada was successful. Estimated blood loss was minimal. Impression: - Non-bleeding internal hemorrhoids. - Diverticulosis in the recto-sigmoid colon, in the sigmoid colon, in the descending colon, at the splenic flexure and in the transverse colon. Injected. - Two 1 to 2 mm polyps in the sigmoid colon and in the cecum, removed using lift and cut and a hot snare. Resected and retrieved. Treated with argon plasma coagulation (APC). - Two bleeding colonic angiodysplastic lesions. Treated with argon plasma coagulation (APC). Recommendation: - [facility] for ongoing care. - Full liquid diet today. - No aspirin, ibuprofen, naproxen, or other non-steroidal anti-inflammatory drugs for 7 days after polyp removal. - Repeat colonoscopy in 3 years for surveillance. Procedure Code(s): --- Professional --- 21052, 59, Colonoscopy, flexible; with control of bleeding, any method 81073, Colonoscopy, flexible; with removal of tumor(s), polyp(s), or other lesion(s) by snare technique 87302, 59, Colonoscopy, flexible; with directed submucosal injection(s), any substance CPT copyright 2017 [employer]. All rights reserved. The codes documented in this report are preliminary and upon dry box tender review may be revised to meet current compliance requirements. Ahmet Chacon DO 09/03/2022 9:02:04 AM This report has been signed electronically. Number of Addenda: 0 Note Initiated On: 09/03/2022 7:45 AM
--- NOTE | 2022-09-03 09:07 | EKG12_ITS ---
Test Reason : CP Blood Pressure : / mmHG Vent. Rate : 071 BPM Atrial Rate : 070 BPM P-R Int : 000 ms QRS Dur : 168 ms QT Int : 480 ms P-R-T Axes : 000 -46 128 degrees QTc Int : 521 ms Normal sinus rhythm with 1st degree A-V block Left axis deviation Left bundle branch block Abnormal ECG When compared with ECG of 02-SEP-2022 19:57, MANUAL COMPARISON REQUIRED, DATA IS UNCONFIRMED Confirmed by ELFEGO LUNA, CECILIO ([id number]), photograph editor CAREY BAUER ([id number]) on 09/06/2022 9:18:56 AM Referred By: FRIEND Confirmed By:CECILIO TELLES MD
--- NOTE | 2022-09-03 09:20 | EKG12_ITS ---
Test Reason : CP Blood Pressure : / mmHG Vent. Rate : 078 BPM Atrial Rate : 078 BPM P-R Int : 202 ms QRS Dur : 162 ms QT Int : 450 ms P-R-T Axes : 048 -37 129 degrees QTc Int : 513 ms Normal sinus rhythm Left axis deviation Left bundle branch block Abnormal ECG When compared with ECG of 03-SEP-2022 09:19, MANUAL COMPARISON REQUIRED, DATA IS UNCONFIRMED Confirmed by ELFEGO LUNA, CECILIO ([id number]), digital editor CAREY BAUER ([id number]) on 09/06/2022 9:37:11 AM Referred By: ELLA Confirmed By:CECILIO TELLES MD
[2022-09-03 09:21] LABS: Hemoglobin A1c < 3.8 % (3.8-5.6)
--- NOTE | 2022-09-03 09:34 | ECHOD_ITS ---
Reason For Study: Chest pain Procedure This was a 2D Doppler, Color Flow transthoracic echocardiogram. Exam performed portable in patient room. Left Ventricle Normal LV size. The estimated ejection fraction is 50 %. Mild segmental systolic dysfunction (see wall motion). Septal [place] : Akinetic. Mid-anteroseptal : Hypokinetic. [place] : Hypokinetic. Right Ventricle Normal RV size. Normal systolic function. Atria Normal left atrium. Normal right atrium. Mitral Valve There is mild mitral annular calcification. Mild (1+) eccentric mitral valve insufficiency. Tricuspid Valve Normal tricuspid valve. Mild (1+) tricuspid valve insufficiency. Pulmonary artery systolic pressure is 37 mmHg. Aortic Valve Trisinus/trileaflet aortic valve. Aortic sclerosis, no stenosis. Pulmonic Valve Normal pulmonic valve. Great Vessels Mildly dilated aortic root. The pulmonary artery is normal size. Normal inferior vena cava. Pericardium/Pleural No pericardial effusion. MMode/2D Measurements & Calculations LVIDd: 5.1 cm IVSd: 1.4 cm Ao root diam: 3.8 cm LVIDs: 3.2 cm LVPWd: 0.86 cm RVDd: 3.8 cm FS: 37.4 % LAV(MOD-bp): 66.4 ml LVAd ap4: 37.1 cm2 LVAd ap2: 34.3 cm2 LAV(MOD-bp) Indexed: 32.3 ml/m2 LVLd ap4: 9.3 cm LVLd ap2: 9.0 cm LAV(MOD-sp2): 50.2 ml EDV(MOD-sp4): 125.6 ml EDV(MOD-sp2): 105.2 ml LAV(MOD-sp4): 73.5 ml EDV(sp4-el): 125.9 ml EDV(sp2-el): 110.7 ml LVAs ap4: 23.6 cm2 LVAs ap2: 21.6 cm2 LVLs ap4: 8.3 cm LVLs ap2: 8.1 cm ESV(MOD-sp4): 54.9 ml ESV(MOD-sp2): 46.3 ml ESV(sp4-el): 56.7 ml ESV(sp2-el): 48.4 ml EF(MOD-sp4): 56.3 % EF(MOD-sp2): 56.0 % EF(sp4-el): 55.0 % SV(MOD-sp4): 70.7 ml SV(MOD-sp2): 58.9 ml SV(sp4-el): 69.2 ml LA dimension(2D): 5.1 cm LA A4 area: 21.1 cm2 RA A4 area: 16.6 cm2 Time Measurements MV dec time: 0.22 sec Doppler Measurements & Calculations MV E max zay: 71.0 cm/sec Lat Peak E' Zay: 9.9 cm/sec Med Peak E' Zay: 5.8 cm/sec MV A max zay: 94.8 cm/sec E/E' lat: 7.2 E/E' med: 12.3 MV E/A: 0.75 MV dec slope: 316.4 cm/sec2 Ao V2 max: 179.8 cm/sec LV V1 max: 96.4 cm/sec Ao max P.9 mmHg LV V1 max P.7 mmHg Ao V2 mean: 121.8 cm/sec LV V1 mean P.3 mmHg Ao mean P.9 mmHg LV V1 mean: 71.1 cm/sec Ao V2 VTI: 37.5 cm LV V1 VTI: 21.7 cm AV (velocity ratio): 0.58 PA V2 max: 128.2 cm/sec TR max zay: 285.6 cm/sec TR max P.6 mmHg ECHO/Echo Complete Interpretation Summary Normal LV size. The estimated ejection fraction is 50 %. Mild segmental systolic dysfunction (see wall motion). Mild (1+) eccentric mitral valve insufficiency. Mild (1+) tricuspid valve insufficiency. Ordering Physician: Melissa Corbin Referring Physician: Valeriano Beasley Performed By: Elvira James RDCS
[2022-09-03 09:36] LABS: Troponin-I HS 28 pg/mL (3.0-78.0)
[2022-09-03] MEDS: LORazepam 1 MG Tablet 2 MG PO (11:07)
[2022-09-03] MEDS: Thiamine Hydrochloride 100 MG Tablet PO (11:09)
[2022-09-03] MEDS: 0.9% Normal Saline 1,000 ML 125 ML IV ×2 (11:10→21:15)
[2022-09-03] MEDS: Folic Acid 1 MG Tablet PO (11:10)
[2022-09-03] MEDS: Allopurinol 100 MG Tablet PO (11:11)
--- NOTE | 2022-09-03 15:00 | PN.HOSP_ITS ---
Reason for Visit Reason for Visit: Diagnoses Diarrhea, unspecified (09/02/22) Subjective Subjective Patient seen and examined. He was evaluated in the PACU as he started complaining of chest pain. He had colonoscopy today which showed 2 bleeding c olonic angiodysplastic lesions, which was treated with argon plasma coagulation; it also showed diverticulosis. HE subsequently started complaining of chest pain. EKG showed questionable afib, but repeat EKG showed normal sinus rhythm. Initial troponin was negative. Objective Data Objective Data Vital Signs: Vital Signs Temp Pulse Resp BP Pulse Ox O2 Del Method O2 Flow Rate 97.8 F 69 16 115/54 L 96 Room Air 2 09/03/22 13:45 09/03/22 13:45 09/03/22 13:45 09/03/22 13:45 09/03/22 13:45 09/03/22 13:45 09/03/22 10:00 Oxygen Flow Rate (L/min) 2 Oxygen Delivery Method Room Air Weight: 193 lb 5.526 oz Body Mass Index (BMI) 26.9 Intake & Output: Intake and Output for Last 24 Hours 09/01/22 09/02/22 09/03/22 23:59 23:59 23:59 Intake Total 2703.34 / 3103.34 1500 / 1500 Balance 2703.34 / 3103.34 1500 / 1500 Lab / Micro Data Result Diagrams: 09/03/22 07:10 09/03/22 07:10 Labs: Laboratory Results - last 24 hr 09/02/22 12:25: Magnesium 2.2 09/02/22 12:25: Phosphorus 3.7 09/02/22 16:35: Blood Type O POSITIVE, Antibody Screen NEGATIVE 09/02/22 16:35: Procalcitonin 0.18 H 09/02/22 16:35: Hgb 8.3 L, Hct 24.8 L 09/02/22 19:56: Hgb 7.9 L, Hct 23.5 L 09/02/22 19:56: PT 14.4, INR 1.2, APTT 25.3 09/02/22 19:56: Total Bilirubin 0.70, Direct Bilirubin 0.18, AST 20, ALT 18, Alkaline Phosphatase 81, Total Protein 6.2 L, Albumin 3.0 L, Globulin 3.2 09/02/22 23:40: Hgb 7.6 L, Hct 23.7 L 09/03/22 07:10: WBC 9.7, RBC 2.02 L, Hgb 7.1 L, Hct 22.2 L, MCV 109.9 H, MCH 35.1 H, MCHC 32.0 D, RDW Std Deviation 53.5 H, RDW Coeff of Dorie 13.4, Plt Count 155, MPV 10.7, Immature Gran % (Auto) 0.600, Neut % (Auto) 74.7 H, Lymph % (Auto) 11.7 L, [place] % (Auto) 11.1 H, Eos % (Auto) 1.6, Baso % (Auto) 0.3, Absolute Neuts (auto) 7.2, Absolute Lymphs (auto) 1.13, Nucleated RBC % 0.2 09/03/22 07:10: Sodium 142, Potassium 3.6, Chloride 112 H, Carbon Dioxide 24.0, Anion Gap 6, BUN 14, Creatinine 0.86, Estim Creat Clear Calc 81.35, Est GFR (MDRD) Af Amer 112, Est GFR (MDRD) Non-Af 93, BUN/Creatinine Ratio 16.2, Glucose 99, Calcium 8.0 L, Total Bilirubin 0.70, AST 20, ALT 16, Alkaline Phosphatase 72, Total Protein 5.6 L, Albumin 2.6 L, Globulin 3.0, Albumin/Globulin Ratio 0.9 09/03/22 07:10: Hemoglobin A1c < 3.8 L 09/03/22 09:14: Troponin I High Sens 28 Micro: Microbiology 09/02/22 22:40 Stool Stool Lactoferrin - Final 09/02/22 22:40 Stool Enteric Bacteriology - Final 09/02/22 22:40 Stool C. difficile DNA Amplification - Final Radiography Diagnostic Testing: Radiology Impression Abdomen/Pelvis CT 09/03/22 09:03 IMPRESSION: Circumferential wall thickening of the rectum, may be secondary to proctitis and or a neoplastic process. Colonic diverticulosis. Bilateral nonobstructing renal calculi measuring up to 10.9 mm on the right. Enlarged prostate gland. Atherosclerosis. Electronically Signed: Tess Horne MD at 10:42 EST , Echocardiogram 09/03/22 09:34 Interpretation Summary Normal LV size. The estimated ejection fraction is 50 %. Mild segmental systolic dysfunction (see wall motion). Mild (1+) eccentric mitral valve insufficiency. Mild (1+) tricuspid valve insufficiency. Ordering Physician: Melissa Corbin Referring Physician: Valeriano Beasley Performed By: Elvira James RDCS Physical Exam Const alert, oriented x3 and no apparent distress General Appearance: uncooperative HEENT head/scalp atraumatic, moist oral mucous membranes and oropharynx normal Head and Scalp: normocephalic Mouth: oral and palatal mucosa normal Eyes PERRL, EOMs intact bilaterally and conjunctivae normal Neck no lymphadenopathy and supple Resp normal respiratory effort, no retractions, no use of accessory muscles and clear to auscultation bilaterally Cardio regular rate, regular rhythm, S1 normal heart sound, S2 normal heart sound and no murmurs GI normal to inspection, nondistended, normoactive bowel sounds, soft to palpation, non-tender and non-distended Extremity normal to inspection, full ROM and no clubbing, cyanosis or edema Neuro oriented x3, CN's II-XII intact bilaterally, moves all extremities and no focal motor deficits Sensorium / Orientation: awake and alert Motor Exam: strength 5/5 throughout Psych affect normal Assessment & Plan Assessment/Plan (1) Acute blood loss anemia: (2) Bloody diarrhea: (3) Chest pain: PLAN: Plan #REctal bleeding * admitted with a complaints of rectal bleeding. * Hb is 7.1. * had colonoscopy which showed diverticulosis in the recto sigmoid colon, sigmoid, descending colon and at the splenic flexure and transverse colon; 2 bleeding colonic angiodysplastic lesions which were treated argon plasma coagulation. * GI on board * on clear liquid diet * on IV PPI * dc iv zosyn as no evidence of infection * #nonstemi * complained of chest pain after he had colonoscopy. * initial troponin was negative but repeat troponin was 1528 * EKG showed ?afib; repeat EKG showed normal sinus rhythm * had a history of CAD and had stents inserted in November and December 2021. * on statin, atenolol. Aspirin and plavix on hold. * 2D echo showed EF of 50% with mild segmental systolic dysfunction. Will request records from [facility] * cycle troponins * consult cardiology. * #CAD s/p stents:on aspirin, plavix and statin. Aspirin and plavix on hold. #Acute alcohol withdrawal * patient has a history of heavy alcohol use, and drinks 4-6 drinks daily. * alcohol withdrawal protocol with ativan. * on folic acid, thiamine and multivite. * # Hypertension: on #Hyperlipidemia: on statin. DVT prophylaxis; SCDs. Charges/Coding Visit Charges Inpatient E&M: 77786 Subs Hosp L3
[2022-09-03 15:02] LABS: Troponin-I HS 1528 pg/mL (3.0-78.0)
--- NOTE | 2022-09-03 15:40 | CASEMGMT ---
RN CM Face to Face with patient for initial transition planning/care coordination assessment. RN CM introduced self and role at [facility]. Patient lying in bed, alert and oriented. Patient willing to participate in assessment and is able to answer all questions appropriately. Care providers, pharmacy, and demographics verified. Patient wishes to discharge home, denies need for home health at this time. Patient states he has no further needs or concerns at this time. CM to follow for discharge planning needs that may arise. PCP: Gale Specialists: Fidencio, community marketing coordinator [place] Preferred Pharmacy: [facility] Insurance: [facility] Prescription Benefit: yes Living Will/HPOA: yes, son Valeriano Hutton LNOK: 3 sons Living Arrangements: Patient lives in a split level home with 5-7 steps and railing between levels. Patient is independent and able to ambulate stairs. Transportation: self, sons DME/HHC: Patient denies DME in the home. No previous HHC or SNF . Disposition Plan: Patient to discharge home with family support and follow-up plans in place. Mallory OLMOS, RN, CM
[2022-09-03 16:51] LABS: Troponin-I HS 2038 pg/mL (3.0-78.0)
--- NOTE | 2022-09-03 17:26 | NURSING ---
I have called [facility] 3 times and was on hold for a total of 35min and no one picked up. I notified SW she stated that she has spoke with Sneha at [facility] and Sneha stated if pt wasn't at [facility] by 1800 she would have to wait to be d/c until tomorrow (Monday). Juan C advised PCU staff to keep trying to call [facility] through the night to try and set up transport for Monday.
[2022-09-03 18:32] LABS: Absolute Lymphocyte Count 1.01 X10^3/uL (0.83-4.51); Absolute Neutrophil Count 8.7 X10^3/uL (2.0-7.7); Basophil# 0.03 X10^3/uL; Basophil% 0.3 % (0-1); Eosinophil# 0.24 X10^3/uL; Eosinophils% 2.2 % (0-5); Hematocrit 24.1 % (40-54); Hemoglobin 7.8 g/dL (13.0-16.5); Lymphocyte # 1.01 X10^3/ul (0.83-4.51); Lymphocyte % 9.1 % (19-41); Mean Corp Hgb Conc 32.4 g/dL (32-36); Mean Corpuscular Hgb 35.6 pg (27.0-32.0); Mean Platelet Vol. 10.3 fl (6.2-12.0); Monocyte# 1.08 X10^3/uL; Monocyte% 9.7 % (0-10); NRBC Flagged by Analyzer 0 % (0-5); Neutrophil # 8.72 X10^3/uL (2.7-7.7); Neutrophil % 78.2 % (47-70); Platelet Count 187 K/mm3 (150-450); RBC Distribution Width CV 13.7 % (11.6-14.6); RBC Distribution Width SD 54.3 fl (35.1-43.9); Red Blood Count 2.19 M/mm3 (4.6-6.2); White Blood Count 11.1 K/mm3 (4.4-11.0)
--- NOTE | 2022-09-03 20:07 | NURSING ---
Rounding on patient and family expressed concerns about patient being off plavix with troponins increasing. Hector RN had notified Dr Corbin of this in which she stated patient would resume plavix 09/04. Notified family of this in which he responded that patient's [facility] house supervisor Dr Sarmiento in [place] states that patient should not be off of plavix for any reason. Text Dr Corbin these further concerns at 1944. At 1957, Dr Ramos called the floor rounding and this RN expressed same concern. Dr Ramos recommended relaying this information to Dr Cuevas and notifying him of family concerns about plavix. In the meantime, family at [facility] and showing this RN text messages with a surgery doc who stated that they spoke to Dr Chacon who stated he was okay with blood thinners. Notified family that Dr Chacon's note stated no ASA for 7 days after polyp removal. Text messages from surgery doc also stated that they spoke to Dr Cuevas who would order blood thinner tonight. While family at [facility], Dr Corbin calls in and states that she spoke with Dr Chacon and Dr Cuevas and gave this RN orders for a Heparin gtt without bolus and to reorder 75 mg po plavix and give dose now. Dr Corbin also wanted this RN to reiterate to the family the risk of bleeding. This RN spoke with family and they voiced understanding about bleeding but with his history of 4 stents would like the blood thinner.
[2022-09-03] MEDS: HEPARIN/D5w 25,000 UNITS 25,000 UNITS/250 ML IV.SOLN. 12 UNITS CONT INF (20:58)
[2022-09-03] MEDS: Atorvastatin Calcium 80 MG Tablet PO (20:59)
[2022-09-03] MEDS: Clopidogrel Bisulfate 75 MG Tablet PO (20:59)
[2022-09-03 21:10] LABS: Troponin-I HS 3730 pg/mL (3.0-78.0)
[2022-09-04] VITALS (20 sets, daily range): BP systolic 95–168; BP diastolic 49–88; PULSE 52–107; RESP 14–18; TEMP 36.3–37; O2SAT 94–100
[2022-09-04 03:29] LABS: Partial Thromboplast Time 61.4 Seconds (24.1-36.2)
[2022-09-04] MEDS: 0.9% Normal Saline 1,000 ML 125 ML IV ×3 (04:22→19:22)
[2022-09-04 09:18] LABS: Partial Thromboplast Time 77.6 Seconds (24.1-36.2)
--- NOTE | 2022-09-04 09:30 | PCM.CONS.C ---
Assessment & Plan Assessment/Plan (1) NSTEMI (non-ST elevated myocardial infarction): PLAN: Patient presented with anemia and chest discomfort and is noted now to have a non-ST elevation myocardial infarction. The above is likely a type II event from demand ischemia. He does have known coronary artery disease and my recommendation would be to perform a cardiac catheterization and depending on the findings further recommendations will be made. He can be on heparin in the meantime. Due to his recent GI findings I will hold off on the aspirin but continue the Plavix. I will also recommend transfusion of 2 units of packed red blood cells. The risk benefits alternatives have been explained to the patient and his son they understand and agree to proceed. (2) History of hypertension: PLAN: He does have a history of hypertension his blood pressure is under good control no changes to be made we will continue with current therapy. Thank you for allowing me to participate in the care of your patient. Please don't hesitate to call if any issues arise. HPI Consult Data Date of Consult: 09/04/22 HPI Narrative HPI Narrative: NICO LICONA, is a 71 M who presents with an abnormal troponin level and chest discomfort after experiencing bright red blood per rectum. The patient said that he suffered a myocardial infarction in November 2021 was taken to [facility] and underwent stenting of one vessel. He returned in January of the same year for 3 more stents. He completed cardiac rehabilitation and was doing well until last week when he started experiencing bright red blood per rectum. This was followed by mild dizziness as well as shortness of breath. He asked his son to bring him to the hospital and was seen in the emergency room and noted to be anemic and subsequently underwent a colonoscopy which diagnosed diverticular disease. Postprocedure the patient complained of some chest discomfort cardiac enzymes were noted to be abnormal and subsequently peaked at over 3000. An echocardiogram was performed which demonstrated mildly reduced ejection fraction of 50% with segmental wall motion abnormality involving the anterior wall and apex. Cardiology was called for further evaluation and management. He has not had any further chest discomfort but he does complain of some shortness of breath at rest as well as dizziness when he gets up from the seated position. His hemoglobin is between 7 and 8. His EKG demonstrates sinus rhythm with a left bundle branch block. [facility] Medical History Anxiety Atherosclerotic heart disease of [place] coronary artery without angina pectoris Chest pain Coronary artery disease Depression Hyperlipidemia Hypertension Myocardial infarct ST elevation DE (STEMI) (~11/29/21) Home Medications allopurinol 100 mg tablet 100 mg PO DAILY GOUT 03/25/22 [History Last Taken 09/02/22] atenolol 50 mg tablet 50 mg PO DAILY HEART 03/25/22 [History Last Taken 09/02/22] atorvastatin 80 mg tablet 80 mg PO DAILY CHOLESTEOL 03/25/22 [History Last Taken 09/01/22] clopidogrel 75 mg tablet 75 mg PO DAILY BLOOD THINNER 03/25/22 [History Last Taken 09/02/22] doxepin 25 mg capsule 25 mg PO QHS 03/25/22 [History Last Taken Unknown] aspirin 81 mg tablet,delayed release 81 mg PO DAILY HEALTH MAINTENANCE 09/02/22 [History Last Taken 09/02/22] ezetimibe 10 mg tablet 10 mg PO DAILY CHOLESTEROL 09/02/22 [History Last Taken 09/01/22] nitroglycerin 0.4 mg sublingual tablet 0.4 mg sublingual UD PRN Chest Pain 09/02/22 [History Last Taken Unknown] ofloxacin 0.3 % eye drops 1 drp EACH EYE 4X/DAY SURGERY 09/02/22 [History Last Taken 09/02/22] Allergy/AdvReac Type Severity Reaction Status Date / Time hydrochlorothiazide Allergy Hives Verified 03/25/22 14:13 Family History Mother COPD (chronic obstructive pulmonary disease) Lung cancer Father Heart disease Hypertension Myocardial infarction age 53 following DE. Surgical History Presence of coronary angioplasty implant and graft (~11/29/21) S/P cataract extraction Social History household members: none Smoking Status: Former smoker how long ago did patient quit smoking: Smoked from age 18, 1 ppd x 4 years and then quit. alcohol intake: current alcohol intake frequency: 3 or more drinks per day details: Drinks 6 pack beer/day x 1 year following of his . substance use type: does not use ROS Constitutional Constitutional: Denies fever(s) or weight loss Eyes Eyes: Reports systems reviewed and no addt'l complaints, except as documented ENT HEENT: Reports systems reviewed and no addt'l complaints, except as documented Cardiovascular Cardiovascular: Reports chest pain at rest, dizziness and dyspnea at rest; Denies chest pain with activity, dyspnea on exertion, edema, palpitations or paroxysmal nocturnal dyspnea Respiratory/Chest Respiratory/Chest: Denies dyspnea on exertion, productive cough, shortness of breath at rest or shortness of breath with exertion Gastrointestinal Gastrointestinal: Reports hematochezia; Denies change in bowel habits, nausea, vomiting or weight changes Genitourinary Genitourinary: Denies difficulty urinating Musculoskeletal Musculoskeletal: Denies joint stiffness or muscle weakness Integumentary Integumentary: Denies lesions Neurologic Neurologic: Reports dizziness; Denies syncope Psychiatric Psychiatric: Denies anxiety Endocrine Endocrinology: Denies excessive sweating or fatigue Hematologic/Lymphatic Hematologic/Lymphatic: Denies anemia Allergic/Immunologic Allergic/Immunologic: Denies seasonal rhinorrhea Risk Stratification Risk Stratification Applicable: Yes Age >/= 65: Yes >/= 3 CAD Risk Factors (HTN, HLD, DM, family hx of CAD, or current smoker): Yes Aspirin Use in the Past 7 Days: Yes Severe Angina (>/= episodes in 24 hours): No EKG ST Changes >/= 0.5mm: No Positive Cardiac Marker: Yes CRISELDA Risk Stratification Score: 4 CRISELDA % Risk: 20% Risk Objective Data Vital Signs: Vital Signs Temp Pulse Resp BP Pulse Ox O2 Del Method O2 Flow Rate 98.5 F 70 18 112/55 L 97 Room Air 2 09/04/22 03:12 09/04/22 03:12 09/04/22 03:12 09/04/22 03:12 09/04/22 08:16 09/04/22 08:16 09/03/22 10:00 Oxygen Flow Rate (L/min) 2 Oxygen Delivery Method Room Air Weight: 194 lb 10.691 oz Body Mass Index (BMI) 26.9 Intake & Output: Intake and Output for Last 24 Hours 09/02/22 09/03/22 09/04/22 23:59 23:59 23:59 Intake Total 2703.34 / 3103.34 3010 / 3010 1246.98 / 1246.98 Balance 2703.34 / 3103.34 3010 / 3010 1246.98 / 1246.98 Lab / Micro Data Result Diagrams: 09/03/22 18:23 09/03/22 07:10 Labs: Laboratory Results - last 24 hr 09/03/22 09:14: Troponin I High Sens 28 09/03/22 14:20: Troponin I High Sens 1528 H* 09/03/22 16:20: Troponin I High Sens 2038 H* 09/03/22 18:23: WBC 11.1 H, RBC 2.19 L, Hgb 7.8 L, Hct 24.1 L, MCV 110.0 H, MCH 35.6 H, MCHC 32.4, RDW Std Deviation 54.3 H, RDW Coeff of Dorie 13.7, Plt Count 187, MPV 10.3, Immature Gran % (Auto) 0.500, Neut % (Auto) 78.2 H, Lymph % (Auto) 9.1 L, [place] % (Auto) 9.7, Eos % (Auto) 2.2, Baso % (Auto) 0.3, Absolute Neuts (auto) 8.7 H, Absolute Lymphs (auto) 1.01, Nucleated RBC % 0 09/03/22 20:25: Troponin I High Sens 3730 H* 09/04/22 02:57: APTT 61.4 H 09/04/22 08:28: APTT 77.6 H Micro: Microbiology 09/02/22 22:40 Stool Stool Lactoferrin - Final 09/02/22 22:40 Stool Enteric Bacteriology - Final Cardiology Labs/Tests 09/03/22 18:23: WBC 11.1 H, RBC 2.19 L, Hgb 7.8 L, Hct 24.1 L, MCV 110.0 H, MCH 35.6 H, MCHC 32.4, Plt Count 187, MPV 10.3, Immature Gran % (Auto) 0.500, Neut % (Auto) 78.2 H, Lymph % (Auto) 9.1 L, [place] % (Auto) 9.7, Eos % (Auto) 2.2, Baso % (Auto) 0.3, Absolute Neuts (auto) 8.7 H, Nucleated RBC % 0 09/04/22 02:57: APTT 61.4 H 09/04/22 08:28: APTT 77.6 H Rhythm: EKG: ECHO: Stress Test: Cardiac Cath: PCI: CT Surgery: Holter monitor: EPS: PPM: CXR: Chest CT Scan: Radiography Diagnostic Testing: Radiology Impression Abdomen/Pelvis CT 09/03/22 09:03 IMPRESSION: Circumferential wall thickening of the rectum, may be secondary to proctitis and or a neoplastic process. Colonic diverticulosis. Bilateral nonobstructing renal calculi measuring up to 10.9 mm on the right. Enlarged prostate gland. Atherosclerosis. Electronically Signed: Tess Horne MD at 10:42 EST , Echocardiogram 09/03/22 09:34 Interpretation Summary Normal LV size. The estimated ejection fraction is 50 %. Mild segmental systolic dysfunction (see wall motion). Mild (1+) eccentric mitral valve insufficiency. Mild (1+) tricuspid valve insufficiency. Ordering Physician: Melissa Corbin Referring Physician: Valeriano Beasley Performed By: Elvira James RDCS
--- NOTE | 2022-09-04 09:58 | EKG12_ITS ---
Test Reason : PRE-OP Blood Pressure : / mmHG Vent. Rate : 062 BPM Atrial Rate : 312 BPM P-R Int : 000 ms QRS Dur : 150 ms QT Int : 476 ms P-R-T Axes : 000 -40 155 degrees QTc Int : 483 ms Normal sinus rhythm Left axis deviation Left bundle branch block Abnormal ECG No previous ECGs available Confirmed by ELFEGO LUNA, CECILIO ([id number]), editor farm journal CAREY BAUER ([id number]) on 09/06/2022 9:38:12 AM Referred By: ELLA Confirmed By:CECILIO TELLES MD
[2022-09-04] MEDS: Nitroglycerin (INPATIENT USE) 0.4 MG TAB.SUBL SL (10:06)
[2022-09-04] MEDS: Allopurinol 100 MG Tablet PO (10:09)
[2022-09-04] MEDS: Thiamine Hydrochloride 100 MG Tablet PO (10:09)
[2022-09-04] MEDS: Folic Acid 1 MG Tablet PO (10:09)
[2022-09-04] MEDS: Clopidogrel Bisulfate 75 MG Tablet PO (10:15)
--- NOTE | 2022-09-04 10:33 | PCM.PROGNOTE ---
Subjective Subjective Patient underwent a colonoscopy for lower GI bleeding yesterday. He was discovered to have significant diverticular disease, hemorrhoids oral disease, angiodysplasia and large polyps that were removed. He has not had any signs or symptoms of bleeding since being restarted on heparin and antiplatelet therapy. He developed some chest pain and shortness of breath at the procedure and he was determined to have a increasing troponin levels. He is being seen by cardiology. Objective Data Objective Data Vital Signs: Vital Signs Temp Pulse Resp BP Pulse Ox O2 Del Method O2 Flow Rate 98.4 F 78 18 129/75 H 98 Room Air 2 09/04/22 09:36 09/04/22 10:06 09/04/22 09:36 09/04/22 10:06 09/04/22 09:36 09/04/22 09:36 09/03/22 10:00 Oxygen Flow Rate (L/min) 2 Oxygen Delivery Method Room Air Weight: 194 lb 10.691 oz Body Mass Index (BMI) 26.9 Intake & Output: Intake and Output for Last 24 Hours 09/02/22 09/03/22 09/04/22 23:59 23:59 23:59 Intake Total 2703.34 / 3103.34 3010 / 3010 1296.98 / 1296.98 Balance 2703.34 / 3103.34 3010 / 3010 1296.98 / 1296.98 Lab / Micro Data Result Diagrams: 09/03/22 18:23 09/03/22 07:10 Labs: Laboratory Results - last 24 hr 09/03/22 14:20: Troponin I High Sens 1528 H* 09/03/22 16:20: Troponin I High Sens 2038 H* 09/03/22 18:23: WBC 11.1 H, RBC 2.19 L, Hgb 7.8 L, Hct 24.1 L, MCV 110.0 H, MCH 35.6 H, MCHC 32.4, RDW Std Deviation 54.3 H, RDW Coeff of Dorie 13.7, Plt Count 187, MPV 10.3, Immature Gran % (Auto) 0.500, Neut % (Auto) 78.2 H, Lymph % (Auto) 9.1 L, [place] % (Auto) 9.7, Eos % (Auto) 2.2, Baso % (Auto) 0.3, Absolute Neuts (auto) 8.7 H, Absolute Lymphs (auto) 1.01, Nucleated RBC % 0 09/03/22 20:25: Troponin I High Sens 3730 H* 09/04/22 02:57: APTT 61.4 H 09/04/22 08:28: APTT 77.6 H Micro: Microbiology 09/02/22 22:40 Stool Stool Lactoferrin - Final 09/02/22 22:40 Stool Enteric Bacteriology - Final 09/02/22 22:40 Stool C. difficile DNA Amplification - Final Radiography Diagnostic Testing: Radiology Impression Abdomen/Pelvis CT 09/03/22 09:03 IMPRESSION: Circumferential wall thickening of the rectum, may be secondary to proctitis and or a neoplastic process. Colonic diverticulosis. Bilateral nonobstructing renal calculi measuring up to 10.9 mm on the right. Enlarged prostate gland. Atherosclerosis. Electronically Signed: Tess Horne MD at 10:42 EST , Echocardiogram 09/03/22 09:34 Interpretation Summary Normal LV size. The estimated ejection fraction is 50 %. Mild segmental systolic dysfunction (see wall motion). Mild (1+) eccentric mitral valve insufficiency. Mild (1+) tricuspid valve insufficiency. Ordering Physician: Melissa Corbin Referring Physician: Valeriano Beasley Performed By: Elvira James RDCS Physical Exam Const alert, oriented x3 and no apparent distress General Appearance: uncooperative HEENT head/scalp atraumatic, moist oral mucous membranes and oropharynx normal Head and Scalp: normocephalic Mouth: oral and palatal mucosa normal Eyes PERRL, EOMs intact bilaterally and conjunctivae normal Neck no lymphadenopathy and supple Resp normal respiratory effort, no retractions, no use of accessory muscles and clear to auscultation bilaterally Cardio regular rate, regular rhythm, S1 normal heart sound, S2 normal heart sound and no murmurs GI normal to inspection, nondistended, normoactive bowel sounds, soft to palpation, non-tender and non-distended Extremity normal to inspection, full ROM and no clubbing, cyanosis or edema Neuro oriented x3, CN's II-XII intact bilaterally, moves all extremities and no focal motor deficits Sensorium / Orientation: awake and alert Motor Exam: strength 5/5 throughout Psych affect normal Assessment & Plan Assessment/Plan (1) NSTEMI (non-ST elevated myocardial infarction): PLAN: He has been seen by cardiology. I agree with transfusion of 2 units of packed red blood cells. I appreciate cardiologys assistance. He will undergo cardiac catheterization tomorrow. (2) History of hypertension: PLAN: He does have a history of hypertension his blood pressure is under good control no changes to be made we will continue with current therapy. Thank you for allowing me to participate in the care of your patient. Please don't hesitate to call if any issues arise. (3) Acute blood loss anemia: PLAN: GI bleeding secondary to multiple sources. Hemorrhoidal, diverticular, angiodysplasia, and adenomatous polyps,. Continue medical management and follow hemoglobin. Charges/Coding Visit Charges Inpatient E&M: 27468 Subs Hosp L2
--- NOTE | 2022-09-04 12:47 | NURSING ---
Pt with very large episode of bloody diarrhea at this time. Dr. Corbin made aware.
[2022-09-04 12:58] LABS: Absolute Lymphocyte Count 1.05 X10^3/uL (0.83-4.51); Absolute Neutrophil Count 6.1 X10^3/uL (2.0-7.7); Basophil# 0.04 X10^3/uL; Basophil% 0.5 % (0-1); Eosinophil# 0.44 X10^3/uL; Eosinophils% 5.1 % (0-5); Hemoglobin 6.9 g/dL (13.0-16.5); Lymphocyte # 1.05 X10^3/ul (0.83-4.51); Lymphocyte % 12.1 % (19-41); Mean Corp Hgb Conc 32.9 g/dL (32-36); Mean Corpuscular Hgb 36.1 pg (27.0-32.0); Mean Corpuscular Volume 109.9 fL (80-94); Mean Platelet Vol. 10.3 fl (6.2-12.0); Monocyte% 11.5 % (0-10); NRBC Flagged by Analyzer 0 % (0-5); Neutrophil # 6.09 X10^3/uL (2.7-7.7); Neutrophil % 70.3 % (47-70); Platelet Count 166 K/mm3 (150-450); RBC Distribution Width CV 14.2 % (11.6-14.6); RBC Distribution Width SD 56.1 fl (35.1-43.9); Red Blood Count 1.91 M/mm3 (4.6-6.2); White Blood Count 8.7 K/mm3 (4.4-11.0)
--- NOTE | 2022-09-04 14:19 | PN.HOSP_ITS ---
Reason for Visit Reason for Visit: Diagnoses Acute posthemorrhagic anemia (09/02/22) Non-ST elevation (NSTEMI) myocardial infarction (09/02/22) Diarrhea, unspecified (09/02/22) Personal history of other diseases of the circulatory system (09/02/22) Subjective Subjective Patient seen and examined. He had no active complaints this morning. Patient was noted to have non-STEMI after he had the colonoscopy yesterday. His troponins trended upwards to a peak of over 3000. He was transferred to PCU. This was discussed with cardiology who opted to hold off on giving the patient any anticoagulant or any antiplatelet as patient was not having chest pain and also in light of his admission for lower GI bleed. On the evening of 09/03/2022, I was informed by patient's nurse that family was insistent that patient should be started on his Plavix and he also wanted him on heparin. Even though it was explained to the family that this could cause bleeding, there was still quite insistent about this. Patient was therefore started on heparin drip after discussion with cardiology and GI at 8 PM on 09/04/2022. On evaluation this morning patient had not had any GI bleed and was counseled that he would need cardiac cath tomorrow. Per discussion with cardiology, patient to be transfused with 2 units of packed red blood cells today. Patient became tearful when told this. Later in the day, I was informed by patient's nurse that patient has sta rted bleeding profusely per rectum. Patient was just passing jerad blood per rectum. He did become hypotensive and repeat hemoglobin check was 6.9. Objective Data Objective Data Vital Signs: Vital Signs Temp Pulse Resp BP Pulse Ox O2 Del Method O2 Flow Rate 97.7 F L 107 H 18 95/61 100 Room Air 2 09/04/22 13:34 09/04/22 13:34 09/04/22 13:34 09/04/22 13:34 09/04/22 13:34 09/04/22 13:34 09/03/22 10:00 Oxygen Flow Rate (L/min) 2 Oxygen Delivery Method Room Air Weight: 194 lb 10.691 oz Body Mass Index (BMI) 26.9 Intake & Output: Intake and Output for Last 24 Hours 09/02/22 09/03/22 09/04/22 23:59 23:59 23:59 Intake Total 2703.34 / 3103.34 3010 / 3010 1646.98 / 1646.98 Balance 2703.34 / 3103.34 3010 / 3010 1646.98 / 1646.98 Lab / Micro Data Result Diagrams: 09/04/22 12:49 09/03/22 07:10 Labs: Laboratory Results - last 24 hr 09/02/22 16:35: Crossmatch See Detail 09/03/22 14:20: Troponin I High Sens 1528 H* 09/03/22 16:20: Troponin I High Sens 2038 H* 09/03/22 18:23: WBC 11.1 H, RBC 2.19 L, Hgb 7.8 L, Hct 24.1 L, MCV 110.0 H, MCH 35.6 H, MCHC 32.4, RDW Std Deviation 54.3 H, RDW Coeff of Dorie 13.7, Plt Count 187, MPV 10.3, Immature Gran % (Auto) 0.500, Neut % (Auto) 78.2 H, Lymph % (Auto) 9.1 L, [place] % (Auto) 9.7, Eos % (Auto) 2.2, Baso % (Auto) 0.3, Absolute Neuts (auto) 8.7 H, Absolute Lymphs (auto) 1.01, Nucleated RBC % 0 09/03/22 20:25: Troponin I High Sens 3730 H* 09/04/22 02:57: APTT 61.4 H 09/04/22 08:28: APTT 77.6 H 09/04/22 12:49: WBC 8.7, RBC 1.91 L, Hgb 6.9 L, Hct 21.0 L, MCV 109.9 H, MCH 36.1 H, MCHC 32.9, RDW Std Deviation 56.1 H, RDW Coeff of Dorie 14.2, Plt Count 166, MPV 10.3, Immature Gran % (Auto) 0.500, Neut % (Auto) 70.3 H, Lymph % (Auto) 12.1 L, [place] % (Auto) 11.5 H, Eos % (Auto) 5.1 H, Baso % (Auto) 0.5, Absolute Neuts (auto) 6.1, Absolute Lymphs (auto) 1.05, Nucleated RBC % 0 Micro: Microbiology 09/02/22 22:40 Stool Stool Lactoferrin - Final 09/02/22 22:40 Stool Enteric Bacteriology - Final 09/02/22 22:40 Stool C. difficile DNA Amplification - Final Physical Exam Const alert and oriented x3 Constitutional Narrative: anxious, tearful HEENT head/scalp atraumatic, moist oral mucous membranes and oropharynx normal Head and Scalp: normocephalic Mouth: dry mucous membranes Eyes PERRL, EOMs intact bilaterally and conjunctivae normal Neck no lymphadenopathy and supple Resp normal respiratory effort, no retractions, no use of accessory muscles and clear to auscultation bilaterally Cardio regular rate, regular rhythm, S1 normal heart sound, S2 normal heart sound and no murmurs GI normal to inspection, nondistended, normoactive bowel sounds, soft to palpation, non-tender and non-distended Extremity normal to inspection, full ROM and no clubbing, cyanosis or edema Neuro oriented x3, CN's II-XII intact bilaterally, moves all extremities and no focal motor deficits Sensorium / Orientation: awake and alert Motor Exam: strength 5/5 throughout Psych Mood & Affect: anxious Assessment & Plan Assessment/Plan (1) Acute blood loss anemia: (2) Bloody diarrhea: (3) Chest pain: PLAN: Plan #REctal bleeding * admitted with a complaints of rectal bleeding. * Hb was 7.8 this morning; * had colonoscopy which showed diverticulosis in the recto sigmoid colon, sigmoid, descending colon and at the splenic flexure and transverse colon; 2 bleeding colonic angiodysplastic lesions which were treated argon plasma coagulation. * GI on board * Hb dropped to 6.9 after he started having profuse rectal bleeding again today. He was started on heparin drip last night o/a of nonstemi; cardiology had wanted to hold off on anticoagulants as patient wasnt having chest pain. family was however quite insistent on patient being started on heparin and plavix. * being transfused with 2 units of PRBCs. * will keep NPO * GI informed, will come re-evaluate patient. * #nonstemi * complained of chest pain after he had colonoscopy. * initial troponin was negative but repeat troponin was 1528; repeat troponins trended upwards and peaked at >3000 * EKG showed ?afib; repeat EKG showed normal sinus rhythm * had a history of CAD and had stents inserted in November and December 2021. * on statin, atenolol. Aspirin and plavix on hold. * 2D echo showed EF of 50% with mild segmental systolic dysfunction. Records requested from [facility] * cardiology on board * for cardiac cath tomorrow * #Acute on chronic anemia * due to GI bleed * Hb was 7.8 this morning; trended down to 6.9 after he was started on heparin * dc heparin and plavix. * bein transfused with 2 units of PRBCs * monitor Hb * GI to re-evaluate patient * #hypotension * patient's BP running low in the 90s now after bleeding recurred * being hydrated with a bolus of NS 1L, then continue with iV normal saline 150cc/hr * low threshold for transferring to ICU and starting vasopressors to maintain MAP>65 * #CAD s/p stents: * on aspirin, plavix and statin. * plavix resumed yesternight; will hold again due to patient starting to bleed again. * #Acute alcohol withdrawal * patient has a history of heavy alcohol use, and drinks 4-6 drinks daily. * alcohol withdrawal protocol with ativan. * on folic acid, thiamine and multivite. * # Hypertension: hold BP meds as BP is running low, likely from recurrent rectal bleeding. #Hyperlipidemia: on statin. DVT prophylaxis; SCDs. Charges/Coding Visit Charges Inpatient E&M: 33772 Subs Hosp L3
[2022-09-04] MEDS: 0.9% Normal Saline 1,000 ML 999 ML IV (15:00)
[2022-09-04] MEDS: Epinephrine (1 mg/ml) 1 MG/ML VIAL (15:52)
--- NOTE | 2022-09-04 17:24 | OP.EGD_ITS ---
Patient Name: Nazario Hutton Procedure Date: 09/04/2022 3:17 PM Date of : 1950 Age: 71 Procedure: Upper GI endoscopy Indications: Hematochezia Providers: Ahmet Chacon DO Medicines: Monitored Anesthesia Care Patient Profile: This is a 71 year old male. Refer to note in patient chart for documentation of history and physical. Patient has symptoms of acute abdominal cramping. Complications: No immediate complications. Procedure: Pre-Anesthesia Assessment: - Prior to the procedure, a History and Physical was performed, and patient medications and allergies were reviewed. The risks and benefits of the procedure and the sedation options and risks were discussed with the patient. All questions were answered and informed consent was obtained. Patient identification and proposed procedure were verified by the physician. Mental Status Examination: normal. CV Examination: normal. Prophylactic Antibiotics: The patient does not require prophylactic antibiotics. Prior Anticoagulants: The patient has taken no previous anticoagulant or antiplatelet agents. ASA Grade Assessment: II - A patient with mild systemic disease. After reviewing the risks and benefits, the patient was deemed in satisfactory condition to undergo the procedure. The anesthesia plan was to use monitored anesthesia care (MAC). Immediately prior to administration of medications, the patient was re-assessed for adequacy to receive sedatives. The heart rate, respiratory rate, oxygen saturations, blood pressure, adequacy of pulmonary ventilation, and response to care were monitored throughout the procedure. The physical status of the patient was re-assessed after the procedure. After obtaining informed consent, the endoscope was passed under direct vision. Throughout the procedure, the patient's blood pressure, pulse, and oxygen saturations were monitored continuously. The colonoscope was introduced through the mouth, and advanced to the second part of duodenum. The upper GI endoscopy was accomplished without difficulty. The patient tolerated the procedure well. Scope In: 3:38:53 PM Scope Out: 3:40:05 PM Total Procedure Duration Time 0 hours 1 minute 12 seconds Findings: Non-severe esophagitis with no bleeding was found 34 to 35 cm from the incisors. A small hiatal hernia was present. No other significant abnormalities were identified in a careful examination of the stomach. The second portion of the duodenum was normal. Impression: - Non-severe reflux esophagitis. - Small hiatal hernia. - Normal second portion of the duodenum. - No specimens collected. Recommendation: - Colonoscopy - No repeat upper endoscopy. - Continue present medications. Procedure Code(s): --- Professional --- 59137, Esophagogastroduodenoscopy, flexible, transoral; diagnostic, including collection of specimen(s) by brushing or washing, when performed (separate procedure) CPT copyright 2017 [employer]. All rights reserved. The codes documented in this report are preliminary and upon shock absorber installer review may be revised to meet current compliance requirements. Ahmet Chacon DO 09/04/2022 5:23:51 PM This report has been signed electronically. Number of Addenda: 0 Note Initiated On: 09/04/2022 3:17 PM
--- NOTE | 2022-09-04 17:24 | OP.CCLET_ITS ---
09/04/2022 Valeriano Beasley MD Re : Upper GI endoscopy procedure for Nazario Hutton Dear Dr. Beasley This procedure was performed on Sunday, September 04, 2022. My impressions and recommendations are as follows: Impressions : - Non-severe reflux esophagitis. - Small hiatal hernia. - Normal second portion of the duodenum. - No specimens collected. Recommendations : - Colonoscopy - No repeat upper endoscopy. - Continue present medications. My findings are described in the full procedure note, which is enclosed. If I can be of further assistance, please feel free to contact me at . Sincerely, Ahmet Chacon, 09/04/2022 5:23:51 PM This report has been signed electronically.
--- NOTE | 2022-09-04 17:36 | OP.COLON_ITS ---
Patient Name: Nazario Hutton Procedure Date: 09/04/2022 3:40 PM Date of : 1950 Age: 71 Procedure: Colonoscopy Indications: Hematochezia Providers: Ahmet Chacon DO Medicines: Monitored Anesthesia Care Patient Profile: This is a 71 year old male. Refer to note in patient chart for documentation of history and physical. Patient has symptoms of acute abdominal cramping. Last Colonoscopy: Complications: No immediate complications. Procedure: Pre-Anesthesia Assessment: - Prior to the procedure, a History and Physical was performed, and patient medications and allergies were reviewed. The risks and benefits of the procedure and the sedation options and risks were discussed with the patient. All questions were answered and informed consent was obtained. Patient identification and proposed procedure were verified by the physician. Mental Status Examination: normal. CV Examination: normal. Prophylactic Antibiotics: The patient does not require prophylactic antibiotics. Prior Anticoagulants: The patient has taken no previous anticoagulant or antiplatelet agents. ASA Grade Assessment: II - A patient with mild systemic disease. After reviewing the risks and benefits, the patient was deemed in satisfactory condition to undergo the procedure. The anesthesia plan was to use monitored anesthesia care (MAC). Immediately prior to administration of medications, the patient was re-assessed for adequacy to receive sedatives. The heart rate, respiratory rate, oxygen saturations, blood pressure, adequacy of pulmonary ventilation, and response to care were monitored throughout the procedure. The physical status of the patient was re-assessed after the procedure. After I obtained informed consent, the scope was passed under direct vision. Throughout the procedure, the patient's blood pressure, pulse, and oxygen saturations were monitored continuously. The colonoscope was introduced through the anus and advanced to the cecum, identified by appendiceal orifice and ileocecal valve. The colonoscopy was performed without difficulty. The patient tolerated the procedure well. Scope In: 3:43:14 PM Scope Out: 5:11:38 PM Total Procedure Duration Time 1 hour 28 minutes 24 seconds Findings: The perianal and digital rectal examinations were normal. Multiple small and large-mouthed diverticula were found in the sigmoid colon. Red blood was found in the entire colon. A single small-mouthed diverticulum was found in the sigmoid colon. There was active bleeding coming from the diverticular opening. Area was successfully injected with 17 mL of a 1:10,000 solution of epinephrine for hemostasis. Coagulation for hemostasis using heater probe was successful. Area was tattooed with an injection of 3 mL of Judy ink. To prevent bleeding post-intervention, one hemostatic clip was successfully placed. There was no bleeding during the procedure. Impression: - Diverticulosis in the sigmoid colon. - Blood in the entire examined colon. - Severe diverticulosis in the sigmoid colon. There was active bleeding coming from the diverticular opening. Injected. Treated with a heater probe. Tattooed. Clip was placed. - No specimens collected. Recommendation: - Return patient to [facility] for ongoing care. - Clear liquid diet. - Continue present medications. - No repeat colonoscopy due to no evidence of mucosal or other abnormalities on today's exam. Procedure Code(s): --- Professional --- 10757, Colonoscopy, flexible; with control of bleeding, any method CPT copyright 2017 [employer]. All rights reserved. The codes documented in this report are preliminary and upon slope tender review may be revised to meet current compliance requirements. Ahmet Chacon DO 09/04/2022 5:35:38 PM This report has been signed electronically. Number of Addenda: 0 Note Initiated On: 09/04/2022 3:40 PM
--- NOTE | 2022-09-04 17:37 | OP.CCLET_ITS ---
09/04/2022 Valeriano Beasley MD Re : Colonoscopy procedure for Nazario Hutton Dear Dr. Beasley This procedure was performed on Sunday, September 04, 2022. My impressions and recommendations are as follows: Impressions : - Diverticulosis in the sigmoid colon. - Blood in the entire examined colon. - Severe diverticulosis in the sigmoid colon. There was active bleeding coming from the diverticular opening. Injected. Treated with a heater probe. Tattooed. Clip was placed. - No specimens collected. Recommendations : - Return patient to [facility] for ongoing care. - Clear liquid diet. - Continue present medications. - No repeat colonoscopy due to no evidence of mucosal or other abnormalities on today's exam. My findings are described in the full procedure note, which is enclosed. If I can be of further assistance, please feel free to contact me at . Sincerely, Ahmet Friend, 09/04/2022 5:35:38 PM This report has been signed electronically.
[2022-09-04 18:43] LABS: Hematocrit 31.7 % (40-54); Hemoglobin 10.1 g/dL (13.0-16.5); Mean Corp Hgb Conc 31.9 g/dL (32-36); Mean Corpuscular Hgb 31.9 pg (27.0-32.0); Mean Platelet Vol. 10.9 fl (6.2-12.0); POSITIVE MORPHOLOGY YES; Platelet Count 148 K/mm3 (150-450); RBC Distribution Width CV 17.9 % (11.6-14.6); RBC Distribution Width SD 65.4 fl (35.1-43.9); Red Blood Count 3.17 M/mm3 (4.6-6.2); White Blood Count 10.8 K/mm3 (4.4-11.0)
--- NOTE | 2022-09-04 18:45 | PN.CARD_ITS ---
Subjective Subjective Patient seen and evaluated. Events of this afternoon noted. Objective Data Vital Signs: Vital Signs Temp Pulse Resp BP Pulse Ox O2 Del Method O2 Flow Rate 98.2 F 68 14 154/88 H 96 Room Air 2 09/04/22 18:18 09/04/22 18:18 09/04/22 18:18 09/04/22 18:18 09/04/22 18:18 09/04/22 18:18 09/04/22 17:45 Oxygen Flow Rate (L/min) 2 Oxygen Delivery Method Room Air Weight: 194 lb 10.691 oz Body Mass Index (BMI) 26.9 Intake & Output: Intake and Output for Last 24 Hours 09/02/22 09/03/22 09/04/22 23:59 23:59 23:59 Intake Total 2703.34 / 3103.34 3010 / 3010 4149.98 / 4149.98 Balance 2703.34 / 3103.34 3010 / 3010 4149.98 / 4149.98 Lab / Micro Data Result Diagrams: 09/04/22 12:49 09/03/22 07:10 Labs: Laboratory Results - last 24 hr 09/02/22 16:35: Crossmatch See Detail 09/03/22 20:25: Troponin I High Sens 3730 H* 09/04/22 02:57: APTT 61.4 H 09/04/22 08:28: APTT 77.6 H 09/04/22 12:49: WBC 8.7, RBC 1.91 L, Hgb 6.9 L, Hct 21.0 L, MCV 109.9 H, MCH 36.1 H, MCHC 32.9, RDW Std Deviation 56.1 H, RDW Coeff of Dorie 14.2, Plt Count 166, MPV 10.3, Immature Gran % (Auto) 0.500, Neut % (Auto) 70.3 H, Lymph % (Auto) 12.1 L, [place] % (Auto) 11.5 H, Eos % (Auto) 5.1 H, Baso % (Auto) 0.5, Absolute Neuts (auto) 6.1, Absolute Lymphs (auto) 1.05, Nucleated RBC % 0 09/04/22 14:10: APTT 40.0 H 09/04/22 15:50: Crossmatch See Detail Cardiology Labs/Tests 09/04/22 02:57: APTT 61.4 H 09/04/22 08:28: APTT 77.6 H 09/04/22 12:49: WBC 8.7, RBC 1.91 L, Hgb 6.9 L, Hct 21.0 L, MCV 109.9 H, MCH 36.1 H, MCHC 32.9, Plt Count 166, MPV 10.3, Immature Gran % (Auto) 0.500, Neut % (Auto) 70.3 H, Lymph % (Auto) 12.1 L, [place] % (Auto) 11.5 H, Eos % (Auto) 5.1 H, Baso % (Auto) 0.5, Absolute Neuts (auto) 6.1, Nucleated RBC % 0 09/04/22 14:10: APTT 40.0 H Rhythm: EKG: ECHO: Stress Test: Cardiac Cath: PCI: CT Surgery: Holter monitor: EPS: PPM: CXR: Chest CT Scan: Assessment & Plan Assessment/Plan (1) NSTEMI (non-ST elevated myocardial infarction): PLAN: Patient presented with anemia and chest discomfort and is noted now to have a non-ST elevation myocardial infarction. The above is likely a type II event from demand ischemia. He does have known coronary artery disease and my recommendation would be to perform a cardiac catheterization and depending on the findings further recommendations will be made. At this time due to the recent events the plan will be to postpone this until he is fairly stabilized from the GI standpoint. All anticoagulants and antiplatelet agents to be discontinued. (2) History of hypertension: PLAN: He does have a history of hypertension his blood pressure is under good control no changes to be made we will continue with current therapy. Thank you for allowing me to participate in the care of your patient. Please don't hesitate to call if any issues arise.
[2022-09-04 19:05] LABS: Scan Indicated on CBC? Y/N YES- FLAGS NOTED
[2022-09-04 19:50] LABS: Differential Comment SCANNED
[2022-09-05 03:53] VITALS: BP 121/70; PULSE 64; RESP 18; TEMP 37; O2SAT 96
[2022-09-05] MEDS: 0.9% Normal Saline 1,000 ML 125 ML IV ×2 (05:19→13:49)
--- NOTE | 2022-09-05 07:06 | PCM.PN.CARD ---
Subjective Subjective Patient seen and evaluated. Appears to be stable overnight. Objective Data Vital Signs: Vital Signs Temp Pulse Resp BP Pulse Ox O2 Del Method O2 Flow Rate 98.6 F 64 18 121/70 H 96 Room Air 2 09/05/22 03:53 09/05/22 03:53 09/05/22 03:53 09/05/22 03:53 09/05/22 03:53 09/05/22 03:53 09/04/22 17:45 Oxygen Flow Rate (L/min) 2 Oxygen Delivery Method Room Air Weight: 196 lb 10.437 oz Body Mass Index (BMI) 26.9 Intake & Output: Intake and Output for Last 24 Hours 09/03/22 09/04/22 09/05/22 23:59 23:59 23:59 Intake Total 3010 / 3010 6464.56 / 6464.56 784.17 / 784.17 Balance 3010 / 3010 6464.56 / 6464.56 784.17 / 784.17 Lab / Micro Data Result Diagrams: 09/04/22 18:30 09/03/22 07:10 Labs: Laboratory Results - last 24 hr 09/02/22 16:35: Crossmatch See Detail 09/04/22 08:28: APTT 77.6 H 09/04/22 12:49: WBC 8.7, RBC 1.91 L, Hgb 6.9 L, Hct 21.0 L, MCV 109.9 H, MCH 36.1 H, MCHC 32.9, RDW Std Deviation 56.1 H, RDW Coeff of Dorie 14.2, Plt Count 166, MPV 10.3, Immature Gran % (Auto) 0.500, Neut % (Auto) 70.3 H, Lymph % (Auto) 12.1 L, [place] % (Auto) 11.5 H, Eos % (Auto) 5.1 H, Baso % (Auto) 0.5, Absolute Neuts (auto) 6.1, Absolute Lymphs (auto) 1.05, Nucleated RBC % 0 09/04/22 14:10: APTT 40.0 H 09/04/22 15:50: Crossmatch See Detail 09/04/22 18:30: WBC 10.8, RBC 3.17 L, Hgb 10.1 L, Hct 31.7 L, MCV 100.0 H D, MCH 31.9, MCHC 31.9 L, RDW Std Deviation 65.4 H, RDW Coeff of Dorie 17.9 H, Plt Count 148 L, MPV 10.9, Differential Comment SCANNED Cardiology Labs/Tests 09/04/22 08:28: APTT 77.6 H 09/04/22 12:49: WBC 8.7, RBC 1.91 L, Hgb 6.9 L, Hct 21.0 L, MCV 109.9 H, MCH 36.1 H, MCHC 32.9, Plt Count 166, MPV 10.3, Immature Gran % (Auto) 0.500, Neut % (Auto) 70.3 H, Lymph % (Auto) 12.1 L, [place] % (Auto) 11.5 H, Eos % (Auto) 5.1 H, Baso % (Auto) 0.5, Absolute Neuts (auto) 6.1, Nucleated RBC % 0 09/04/22 14:10: APTT 40.0 H 09/04/22 18:30: WBC 10.8, RBC 3.17 L, Hgb 10.1 L, Hct 31.7 L, MCV 100.0 H D, MCH 31.9, MCHC 31.9 L, Plt Count 148 L, MPV 10.9 Rhythm: EKG: ECHO: Stress Test: Cardiac Cath: PCI: CT Surgery: Holter monitor: EPS: PPM: CXR: Chest CT Scan: Physical Exam Const alert and oriented x3 Constitutional Narrative: anxious, tearful HEENT head/scalp atraumatic, moist oral mucous membranes and oropharynx normal Head and Scalp: normocephalic Mouth: dry mucous membranes Eyes PERRL, EOMs intact bilaterally and conjunctivae normal Neck no lymphadenopathy and supple Resp normal respiratory effort, no retractions, no use of accessory muscles and clear to auscultation bilaterally Cardio regular rate, regular rhythm, S1 normal heart sound, S2 normal heart sound and no murmurs GI normal to inspection, nondistended, normoactive bowel sounds, soft to palpation, non-tender and non-distended Extremity normal to inspection, full ROM and no clubbing, cyanosis or edema Neuro oriented x3, CN's II-XII intact bilaterally, moves all extremities and no focal motor deficits Sensorium / Orientation: awake and alert Motor Exam: strength 5/5 throughout Psych Mood & Affect: anxious Assessment & Plan Assessment/Plan (1) NSTEMI (non-ST elevated myocardial infarction): PLAN: Patient presented with anemia and chest discomfort and is noted now to have a non-ST elevation myocardial infarction. The above is likely a type II event from demand ischemia. He does have known coronary artery disease and my recommendation would be to perform a cardiac catheterization and depending on the findings further recommendations will be made. At this time due to the recent events the plan will be to postpone this until he is fairly stabilized from the GI standpoint. All anticoagulants and antiplatelet agents to be discontinued temporarily. (2) History of hypertension: PLAN: He does have a history of hypertension his blood pressure is under good control no changes to be made we will continue with current therapy. Thank you for allowing me to participate in the care of your patient. Please don't hesitate to call if any issues arise.
[2022-09-05 07:41] VITALS: O2SAT 94
[2022-09-05 09:21] VITALS: BP 135/75; PULSE 70; RESP 16; TEMP 36.7; O2SAT 98
--- NOTE | 2022-09-05 09:42 | CASEMGMT ---
Tertiary faciilties in-network with patient's insurance: [facility], [facility], [facility], [facility].
[2022-09-05] MEDS: Folic Acid 1 MG Tablet PO (10:15)
[2022-09-05] MEDS: Thiamine Hydrochloride 100 MG Tablet PO (10:15)
[2022-09-05] MEDS: Allopurinol 100 MG Tablet PO (10:15)
[2022-09-05 15:20] VITALS: BP 131/65; PULSE 67; RESP 16; TEMP 37; O2SAT 95
--- NOTE | 2022-09-05 16:18 | PN.HOSP_ITS ---
Reason for Visit Reason for Visit: Diagnoses Acute posthemorrhagic anemia (09/02/22) Non-ST elevation (NSTEMI) myocardial infarction (09/02/22) Chest pain, unspecified (09/02/22) Diarrhea, unspecified (09/02/22) Personal history of other diseases of the circulatory system (09/02/22) Subjective Subjective No issues overnight, doing well Objective Data Objective Data Vital Signs: Vital Signs Temp Pulse Resp BP Pulse Ox O2 Del Method O2 Flow Rate 98.6 F 67 16 131/65 H 95 Room Air 2 09/05/22 15:20 09/05/22 15:20 09/05/22 15:20 09/05/22 15:20 09/05/22 15:20 09/05/22 15:20 09/04/22 17:45 Oxygen Flow Rate (L/min) 2 Oxygen Delivery Method Room Air Weight: 196 lb 10.437 oz Body Mass Index (BMI) 26.9 Intake & Output: Intake and Output for Last 24 Hours 09/04/22 09/05/22 09/06/22 03:59 03:59 03:59 Intake Total 2610 / 2610 6464.56 / 6464.56 2434.42 / 2434.42 Balance 2610 / 2610 6464.56 / 6464.56 2434.42 / 2434.42 Lab / Micro Data Result Diagrams: 09/04/22 18:30 09/03/22 07:10 Labs: Laboratory Results - last 24 hr 09/02/22 16:35: Crossmatch See Detail 09/04/22 15:50: Crossmatch See Detail 09/04/22 18:30: WBC 10.8, RBC 3.17 L, Hgb 10.1 L, Hct 31.7 L, MCV 100.0 H D, MCH 31.9, MCHC 31.9 L, RDW Std Deviation 65.4 H, RDW Coeff of Dorie 17.9 H, Plt Count 148 L, MPV 10.9, Differential Comment SCANNED Micro: Microbiology 09/02/22 22:40 Stool Stool Lactoferrin - Final 09/02/22 22:40 Stool Enteric Bacteriology - Final 09/02/22 22:40 Stool C. difficile DNA Amplification - Final Physical Exam Narrative General: Alert, Oriented x3, Cooperative, No apparent distress HEENT: Atraumatic, PERRLA, EOMI, Normocephalic Oral: Moist Mucosa Neck: Supple, No JVD Lungs: Diminished, Normal air movement, No rhonchi, No wheeze, No rales Cardiovascular: Regular rate, Regular Rhythm, Normal S1, Normal S2, No murmurs Abdomen: Soft, Non Tender, Non-Distended, No Hepato-splenomegaly Extremities: No edema, Capillary Refill Less than 3 Seconds Skin: No rashes, No breakdown Musculoskeletal: No Tenderness to Palpation of Joints or Extremities Neurological: Cranial nerves II-XII grossly intact, Motor Exam 5/5 strength throughout, Sensory exam intact to light touch and pain Psych/Mental Status: Normal Affect, Appropriate Assessment & Plan Assessment/Plan (1) Acute blood loss anemia: (2) Bloody diarrhea: (3) Chest pain: PLAN: Plan #Rectal bleeding with acute on chronic anemia and hypotension/non-STEMI type II with a history of CAD status post stents/HTN/HLD * admitted with a complaints of rectal bleeding. * Hb was 7.8 this morning; * had colonoscopy which showed diverticulosis in the recto sigmoid colon, sigmoid, descending colon and at the splenic flexure and transverse colon; 2 bleeding colonic angiodysplastic lesions which were treated argon plasma coagulation. * GI on board * Hb dropped to 6.9 after he started having profuse rectal bleeding again today. He was started on heparin drip last night o/a of nonstemi; cardiology had wan ailyn to hold off on anticoagulants as patient wasnt having chest pain. family was however quite insistent on patient being started on heparin and plavix. We will remain off anti-coagulation at this time * Transfused 2 units of PRBCs, hemoglobin is stable * No plans for heart cath today, can advance his diet and make him n.p.o. after midnight for possible heart cath * GI informed, will come re-evaluate patient. * on statin, atenolol. Aspirin and plavix on hold. * 2D echo showed EF of 50% with mild segmental systolic dysfunction. Records requested from [facility] * cardiology on board #Acute alcohol withdrawal * patient has a history of heavy alcohol use, and drinks 4-6 drinks daily. * alcohol withdrawal protocol with ativan. * on folic acid, thiamine and multivite. DVT: SCDs Charges/Coding Visit Charges Inpatient E&M: 41956 Subs Hosp L2
--- NOTE | 2022-09-05 17:22 | PCM.PROGNOTE ---
Subjective Subjective Patient underwent to colonoscopy this weekend for recurrent diverticular bleeding. He has not had any bleeding today. His blood pressure has been stable. He denies any abdominal pain, bloating or cramping. Objective Data Objective Data Vital Signs: Vital Signs Temp Pulse Resp BP Pulse Ox O2 Del Method O2 Flow Rate 98.6 F 67 16 131/65 H 95 Room Air 2 09/05/22 15:20 09/05/22 15:20 09/05/22 15:20 09/05/22 15:20 09/05/22 15:20 09/05/22 15:20 09/04/22 17:45 Oxygen Flow Rate (L/min) 2 Oxygen Delivery Method Room Air Weight: 196 lb 10.437 oz Body Mass Index (BMI) 26.9 Intake & Output: Intake and Output for Last 24 Hours 09/03/22 09/04/22 09/05/22 23:59 23:59 23:59 Intake Total 3010 / 3010 6464.56 / 6464.56 2890.67 / 2890.67 Balance 3010 / 3010 6464.56 / 6464.56 2890.67 / 2890.67 Lab / Micro Data Result Diagrams: 09/04/22 18:30 09/03/22 07:10 Labs: Laboratory Results - last 24 hr 09/02/22 16:35: Crossmatch See Detail 09/04/22 15:50: Crossmatch See Detail 09/04/22 18:30: WBC 10.8, RBC 3.17 L, Hgb 10.1 L, Hct 31.7 L, MCV 100.0 H D, MCH 31.9, MCHC 31.9 L, RDW Std Deviation 65.4 H, RDW Coeff of Dorie 17.9 H, Plt Count 148 L, MPV 10.9, Differential Comment SCANNED Micro: Microbiology 09/02/22 22:40 Stool Stool Lactoferrin - Final 09/02/22 22:40 Stool Enteric Bacteriology - Final 09/02/22 22:40 Stool C. difficile DNA Amplification - Final Physical Exam Narrative General: Alert, Oriented x3, Cooperative, No apparent distress HEENT: Atraumatic, PERRLA, EOMI, Normocephalic Oral: Moist Mucosa Neck: Supple, No JVD Lungs: Diminished, Normal air movement, No rhonchi, No wheeze, No rales Cardiovascular: Regular rate, Regular Rhythm, Normal S1, Normal S2, No murmurs Abdomen: Soft, Non Tender, Non-Distended, No Hepato-splenomegaly Extremities: No edema, Capillary Refill Less than 3 Seconds Skin: No rashes, No breakdown Musculoskeletal: No Tenderness to Palpation of Joints or Extremities Neurological: Cranial nerves II-XII grossly intact, Motor Exam 5/5 strength throughout, Sensory exam intact to light touch and pain Psych/Mental Status: Normal Affect, Appropriate Assessment & Plan Assessment/Plan (1) NSTEMI (non-ST elevated myocardial infarction): PLAN: Non-ST segment elevation MN treated with heparin over the weekend and developed recurrent lower GI bleeding secondary to diverticular bleeding that was treated endoscopically. (2) Bloody diarrhea: PLAN: The Patient underwent 2 colonoscopies for recurrent GI bleeding secondary to status post endoscopic treatment. His hemoglobin is currently 10.1 and holding steady. Most diverticular bleeds will heal on its own without anticoagulation or antiplatelet therapy. This usually is 80% at will stop and 20% will not stop. He has not bled in 24 hours. His vitals are stable. (3) Acute blood loss anemia: PLAN: Monitor H&H every 6 hours. He is okay to have a liquid diet. Charges/Coding Visit Charges Inpatient E&M: 29190 Subs Hosp L3
[2022-09-05 17:34] LABS: Hematocrit 25.8 % (40-54); Hemoglobin 8.3 g/dL (13.0-16.5)
[2022-09-05 21:20] VITALS: BP 140/72; PULSE 69; RESP 16; TEMP 36.8; O2SAT 97
[2022-09-05] MEDS: Atorvastatin Calcium 80 MG Tablet PO (22:52)
[2022-09-05] MEDS: OFLOXACIN 5 ML DROPS 1 ML OPHTHALMIC (22:52)
[2022-09-05] MEDS: CLARIFY ORDER 1 EACH NOTE (22:52)
[2022-09-06] VITALS (16 sets, daily range): BP systolic 100–155; BP diastolic 65–101; PULSE 42–78; RESP 11–18; TEMP 36–37.1; O2SAT 95–100
[2022-09-06] MEDS: 0.9% Normal Saline 1,000 ML 75 ML IV ×2 (01:04→14:21)
--- NOTE | 2022-09-06 05:55 | EKG12_ITS ---
Test Reason : AM EKG Blood Pressure : / mmHG Vent. Rate : 072 BPM Atrial Rate : 072 BPM P-R Int : 264 ms QRS Dur : 160 ms QT Int : 470 ms P-R-T Axes : 041 -40 139 degrees QTc Int : 514 ms Sinus rhythm with 1st degree A-V block with Premature supraventricular complexes Left axis deviation Left bundle branch block Abnormal ECG Confirmed by NARCISO LUNA, STEPHANIE ([id number]), manager editorial CAREY BAUER ([id number]) on 09/07/2022 8:51:14 AM Referred By: Confirmed By:STEPHANIE STUART MD
[2022-09-06 06:14] LABS: Absolute Lymphocyte Count 0.76 X10^3/uL (0.83-4.51); Basophil# 0.03 X10^3/uL; Basophil% 0.4 % (0-1); Eosinophil# 0.61 X10^3/uL; Eosinophils% 8.5 % (0-5); Hematocrit 24.3 % (40-54); Lymphocyte # 0.76 X10^3/ul (0.83-4.51); Lymphocyte % 10.6 % (19-41); Mean Corp Hgb Conc 32.9 g/dL (32-36); Mean Corpuscular Hgb 32.5 pg (27.0-32.0); Mean Corpuscular Volume 98.8 fL (80-94); Mean Platelet Vol. 9.9 fl (6.2-12.0); Monocyte# 0.77 X10^3/uL; Monocyte% 10.7 % (0-10); NRBC Flagged by Analyzer 0 % (0-5); Neutrophil # 4.99 X10^3/uL (2.7-7.7); Neutrophil % 69.2 % (47-70); POSITIVE MORPHOLOGY YES; Platelet Count 136 K/mm3 (150-450); RBC Distribution Width CV 18.7 % (11.6-14.6); RBC Distribution Width SD 67.3 fl (35.1-43.9); Red Blood Count 2.46 M/mm3 (4.6-6.2); White Blood Count 7.2 K/mm3 (4.4-11.0)
[2022-09-06 06:24] LABS: Differential Indicated SCAN CRITERIA MET
[2022-09-06 06:35] LABS: Anisocytosis 1+; Differential Comment SCANNED; Microcytosis 1+
[2022-09-06 06:47] LABS: Anion Gap 6 (5-15); BUN 3 mg/dL (7-18); BUN/Creat Ratio 4.5 RATIO (10-20); Chloride 116 mmol/L (98-107); Creatinine, Serum 0.66 mg/dL (0.70-1.30); EST Glomerular Filtration Rate 126 mL/min (>60); Est Glom Filt Rate - Afr Amer 152 mL/min (>60); Estimated Creatinine Clearance 69.96 ml/min; Glucose 93 mg/dL (74-106); Potassium 3.3 mmol/L (3.5-5.1); Sodium Level 144 mmol/L (136-145)
[2022-09-06] MEDS: Potassium Chloride Oral Tablet 20 MEQ 40 MEQ PO (07:53)
--- NOTE | 2022-09-06 08:47 | PN.CARD_ITS ---
Subjective Subjective Patient seen and evaluated. Patient underwent cardiac catheterization today. Objective Data Vital Signs: Vital Signs Temp Pulse Resp BP Pulse Ox O2 Del Method O2 Flow Rate 98 F 75 16 130/75 H 97 Room Air 2 09/06/22 06:32 09/06/22 06:32 09/06/22 06:32 09/06/22 06:32 09/06/22 06:32 09/06/22 08:25 09/04/22 17:45 Oxygen Flow Rate (L/min) 2 Oxygen Delivery Method Room Air Weight: 197 lb 1.492 oz Body Mass Index (BMI) 26.9 Intake & Output: Intake and Output for Last 24 Hours 09/04/22 09/05/22 09/06/22 23:59 23:59 23:59 Intake Total 6464.56 / 6464.56 3291.17 / 3291.17 661.25 / 661.25 Balance 6464.56 / 6464.56 3291.17 / 3291.17 661.25 / 661.25 Lab / Micro Data Result Diagrams: 09/06/22 06:00 09/06/22 06:00 Labs: Laboratory Results - last 24 hr 09/05/22 17:23: Hgb 8.3 L, Hct 25.8 L 09/06/22 06:00: WBC 7.2, RBC 2.46 L, Hgb 8.0 L, Hct 24.3 L, MCV 98.8 H, MCH 32.5 H, MCHC 32.9, RDW Std Deviation 67.3 H, RDW Coeff of Dorie 18.7 H, Plt Count 136 L , MPV 9.9, Immature Gran % (Auto) 0.600, Neut % (Auto) 69.2, Lymph % (Auto) 10.6 L, [place] % (Auto) 10.7 H, Eos % (Auto) 8.5 H, Baso % (Auto) 0.4, Absolute Neuts (auto) 5.0, Absolute Lymphs (auto) 0.76 L, Nucleated RBC % 0, Differential Comment SCANNED, Anisocytosis 1+, Microcytosis 1+ 09/06/22 06:00: Sodium 144, Potassium 3.3 L, Chloride 116 H, Carbon Dioxide 22.0, Anion Gap 6, BUN 3 L, Creatinine 0.66 L, Estim Creat Clear Calc 69.96, Est GFR (MDRD) Af Amer 152, Est GFR (MDRD) Non-Af 126, BUN/Creatinine Ratio 4.5 L, Glucose 93, Calcium 8.0 L Cardiology Labs/Tests 09/05/22 17:23: Hgb 8.3 L, Hct 25.8 L 09/06/22 06:00: WBC 7.2, RBC 2.46 L, Hgb 8.0 L, Hct 24.3 L, MCV 98.8 H, MCH 32.5 H, MCHC 32.9, Plt Count 136 L, MPV 9.9, Immature Gran % (Auto) 0.600, Neut % (Auto) 69.2, Lymph % (Auto) 10.6 L, [place] % (Auto) 10.7 H, Eos % (Auto) 8.5 H, Baso % (Auto) 0.4, Absolute Neuts (auto) 5.0, Nucleated RBC % 0 09/06/22 06:00: Sodium 144, Potassium 3.3 L, Chloride 116 H, Carbon Dioxide 22.0, Anion Gap 6, BUN 3 L, Creatinine 0.66 L, Est GFR (MDRD) Af Amer 152, Est GFR (MDRD) Non-Af 126, BUN/Creatinine Ratio 4.5 L, Glucose 93, Calcium 8.0 L Rhythm: EKG: ECHO: Stress Test: Cardiac Cath: PCI: CT Surgery: Holter monitor: EPS: PPM: CXR: Chest CT Scan: Physical Exam Const alert and oriented x3 Constitutional Narrative: anxious, tearful HEENT head/scalp atraumatic, moist oral mucous membranes and oropharynx normal Head and Scalp: normocephalic Mouth: dry mucous membranes Eyes PERRL, EOMs intact bilaterally and conjunctivae normal Neck no lymphadenopathy and supple Resp normal respiratory effort, no retractions, no use of accessory muscles and clear to auscultation bilaterally Cardio regular rate, regular rhythm, S1 normal heart sound, S2 normal heart sound and no murmurs GI normal to inspection, nondistended, normoactive bowel sounds, soft to palpation, non-tender and non-distended Extremity normal to inspection, full ROM and no clubbing, cyanosis or edema Neuro oriented x3, CN's II-XII intact bilaterally, moves all extremities and no focal motor deficits Sensorium / Orientation: awake and alert Motor Exam: strength 5/5 throughout Psych Mood & Affect: anxious Assessment & Plan Assessment/Plan (1) NSTEMI (non-ST elevated myocardial infarction): PLAN: Patient presented with anemia and chest discomfort and is noted now to have a non-ST elevation myocardial infarction. The above is likely a type II event from demand ischemia. He does have known coronary artery disease . Cardiac catheterization demonstrated the following: Left main coronary artery without significant disease. Left anterior descending artery previously stented with mild in-stent stenosis and then diffuse distal disease up to about 80%. Left circumflex artery which is totally occluded in the proximal segment and fi lls via left to left and right to left collaterals. Right coronary artery previously stented with diffuse disease and moderate in- stent stenosis and distal diffuse disease of 50% and right to left collaterals filling the distal LAD as well as the distal circumflex artery Mild left ventricular systolic dysfunction with hypokinesis of the anterior apical wall. Based on the above angiographic findings I would recommend continued medical therapy. We will discuss with GI as to the appropriate timing for resumption of antiplatelet agents. May consider clopidogrel only without aspirin. (2) History of hypertension: PLAN: He does have a history of hypertension his blood pressure is under good control no changes to be made we will continue with current therapy. Thank you for allowing me to participate in the care of your patient. Please don't hesitate to call if any issues arise.
--- NOTE | 2022-09-06 08:59 | CL.D_ITS ---
Patient Name: NICO LICONA Study Date: 09/06/2022 Performing: Lukas Cuevas MD Ht: 70 inches 177.8 cm : 1950 Wt: 197.09 lbs 89.4 kg Age: 71 Gender: male BSA: 2.07 PROCEDURE(S) PERFORMED DC01-(01530)LHC/COR/LV CLINICAL PROFILE AND INDICATIONS Indications: Suspected CAD Heart Failure: None Stress/Imaging Stress/Image Study Performed: No CAD Presentations: Non-STEMI. Symptom onset Date/Time: 09/02/22 Time Not Available CONCLUSIONS Diffuse three-vessel disease involving the distal left anterior descending artery, and a totally occluded left circumflex artery, and diffuse disease of the right coronary artery. RECOMMENDATIONS Medical therapy will be recommended. DESCRIPTION OF PROCEDURE The patient arrived to the procedure lab. The risks and benefits of the procedure as well as a full description of our services here and current unavailability of surgical backup were fully explained to the patient and/or their significant other prior to the catheterization. The Timeout was completed, verifying the correct patient and procedure. The patient's procedural site was prepped and draped in the usual fashion. Local anesthetic was given subcutaneously to right radial region with Lidocaine 2%. Using a modified Seldinger technique, arterial access was obtained via the right radial artery, a 6Fr sheath was inserted. Left Coronary Artery selective angiography was performed in multiple views using a 5 Fr. 4.0 [place] catheter. Right Coronary Artery selective angiography was then performed in multiple views using a 5 Fr. JR 5 catheter. Left Ventriculography was performed in SARGENT projection using a 5 Fr. [place] catheter. LV to AO pullback pressures were then recorded.The arterial sheath was pulled and a TR Band was applied for hemostasis CORONARY ANGIOGRAPHY DOMINANCE: Right Dominant LEFT HEART ASSESSMENT Left Ventricular Ejection Fraction: by LV Gram 50 % Anterior Hypokinesis - Mild Depressed Left Ventricular systolic function LEFT MAIN: Mild calcification, No significant disease noted LEFT ANTERIOR DESCENDING ARTERY: The left anterior descending artery was previously stented and has mild in-stent stenosis in the proximal and mid regions. Distally the vessel appears to be subtotally occluded towards the apex of the ventricle. CIRCUMFLEX ARTERY: The circumflex artery gives off a first obtuse marginal branch which is diffusely diseased and then totally occluded. RIGHT CORONARY ARTERY: The right coronary artery is a large dominant vessel previously stented and diffusely diseased in the proximal segment with in-stent stenosis of up to 40 to 50%. Distally there is diffuse disease involving the posterior lateral and posterior descending arteries up to 50%. Distal right to left collaterals filling the distal LAD as well as the distal circumflex artery are noted. COLLATERAL FLOW: Collateral flow from Right to Left COMPLICATIONS No Complications PROCEDURE MEDICATIONS Fentanyl 50 mcg IV Versed 1 mg IV Oxygen: 2 L/min via nasal cannula SUMMARY OF HEMODYNAMIC DATA Time AIR REST ECG 08:13:01 AO 135/77 (105) SA 08:31:46 LV 128/11, 23 08:42:50 LV 132/13, 24 08:42:59 LV 137/9, 24 08:43:41 LV 134/13, 25 08:43:49 LVp 129/13, 26 08:43:55 AOp 140/70 (99) 08:44:02 09:04:15 Signed By Lukas Cuevas MD On 09/06/2022 09:06:07 Signed By Lukas Cuevas MD On 09/06/2022 08:58:31 Lukas Cuevas MD
[2022-09-06] MEDS: Allopurinol 100 MG Tablet PO (09:38)
[2022-09-06] MEDS: Thiamine Hydrochloride 100 MG Tablet PO (09:39)
[2022-09-06] MEDS: Folic Acid 1 MG Tablet PO (09:39)
[2022-09-06] MEDS: OFLOXACIN 5 ML DROPS 1 ML OPHTHALMIC ×4 (09:39→22:47)
[2022-09-06] MEDS: Pantoprazole Sodium 40 MG Tablet PO ×2 (09:40→22:47)
[2022-09-06 16:52] LABS: Hematocrit 28.7 % (40-54); Hemoglobin 9.3 g/dL (13.0-16.5)
--- NOTE | 2022-09-06 16:56 | PN.HOSP_ITS ---
Reason for Visit Reason for Visit: Diagnoses Acute posthemorrhagic anemia (09/02/22) Non-ST elevation (NSTEMI) myocardial infarction (09/02/22) Chest pain, unspecified (09/02/22) Diarrhea, unspecified (09/02/22) Personal history of other diseases of the circulatory system (09/02/22) Subjective Subjective The doing well, no issues overnight. Had his heart cath this morning with the recommendation for medical management Objective Data Objective Data Vital Signs: Vital Signs Temp Pulse Resp BP Pulse Ox O2 Del Method O2 Flow Rate 96.8 F L 42 L 16 100/73 95 Nasal Cannula 2 09/06/22 14:48 09/06/22 14:48 09/06/22 14:48 09/06/22 14:48 09/06/22 14:48 09/06/22 14:48 09/04/22 17:45 Oxygen Flow Rate (L/min) 2 Oxygen Delivery Method Nasal Cannula Weight: 197 lb 1.492 oz Body Mass Index (BMI) 26.9 Intake & Output: Intake and Output for Last 24 Hours 09/05/22 09/06/22 09/07/22 03:59 03:59 03:59 Intake Total 6464.56 / 6464.56 3884.92 / 3884.92 1046.25 / 1046.25 Balance 6464.56 / 6464.56 3884.92 / 3884.92 1046.25 / 1046.25 Lab / Micro Data Result Diagrams: 09/06/22 16:20 09/06/22 06:00 Labs: Laboratory Results - last 24 hr 09/05/22 17:23: Hgb 8.3 L, Hct 25.8 L 09/06/22 06:00: WBC 7.2, RBC 2.46 L, Hgb 8.0 L, Hct 24.3 L, MCV 98.8 H, MCH 32.5 H, MCHC 32.9, RDW Std Deviation 67.3 H, RDW Coeff of Dorie 18.7 H, Plt Count 136 L , MPV 9.9, Immature Gran % (Auto) 0.600, Neut % (Auto) 69.2, Lymph % (Auto) 10.6 L, [place] % (Auto) 10.7 H, Eos % (Auto) 8.5 H, Baso % (Auto) 0.4, Absolute Neuts (auto) 5.0, Absolute Lymphs (auto) 0.76 L, Nucleated RBC % 0, Differential Comment SCANNED, Anisocytosis 1+, Microcytosis 1+ 09/06/22 06:00: Sodium 144, Potassium 3.3 L, Chloride 116 H, Carbon Dioxide 22.0, Anion Gap 6, BUN 3 L, Creatinine 0.66 L, Estim Creat Clear Calc 69.96, Est GFR (MDRD) Af Amer 152, Est GFR (MDRD) Non-Af 126, BUN/Creatinine Ratio 4.5 L, Glucose 93, Calcium 8.0 L 09/06/22 16:20: Hgb 9.3 L, Hct 28.7 L Micro: Microbiology 09/02/22 22:40 Stool Stool Lactoferrin - Final 09/02/22 22:40 Stool Enteric Bacteriology - Final 09/02/22 22:40 Stool C. difficile DNA Amplification - Final Physical Exam Narrative General: Alert, Oriented x3, Cooperative, No apparent distress HEENT: Atraumatic, PERRLA, EOMI, Normocephalic Oral: Moist Mucosa Neck: Supple, No JVD Lungs: Diminished, Normal air movement, No rhonchi, No wheeze, No rales Cardiovascular: Regular rate, Regular Rhythm, Normal S1, Normal S2, No murmurs Abdomen: Soft, Non Tender, Non-Distended, No Hepato-splenomegaly Extremities: No edema, Capillary Refill Less than 3 Seconds Skin: No rashes, No breakdown Musculoskeletal: No Tenderness to Palpation of Joints or Extremities Neurological: Cranial nerves II-XII grossly intact, Motor Exam 5/5 strength throughout, Sensory exam intact to light touch and pain Psych/Mental Status: Normal Affect, Appropriate Assessment & Plan Assessment/Plan (1) Acute blood loss anemia: (2) Bloody diarrhea: (3) Chest pain: PLAN: Plan #Rectal bleeding with acute on chronic anemia and hypotension/non-STEMI type II with a history of CAD status post stents/HTN/HLD * admitted with a complaints of rectal bleeding. * had colonoscopy which showed diverticulosis in the recto sigmoid colon, sigmoid, descending colon and at the splenic flexure and transverse colon; 2 bleeding colonic angiodysplastic lesions which were treated argon plasma coagulation. * GI on board * Hemoglobin is up to 9.3 we will recheck in the morning * Transfused 2 units of PRBCs * Heart cath today demonstrates coronary artery disease, with previous stents showing mild in-stent stenoses within the LAD and then a totally occluded left circumflex artery and a diffuse disease of the right coronary artery * on statin, atenolol. Aspirin and plavix on hold. * 2D echo showed EF of 50% with mild segmental systolic dysfunction. Records requested from [facility] * cardiology on board #Acute alcohol withdrawal * patient has a history of heavy alcohol use, and drinks 4-6 drinks daily. * alcohol withdrawal protocol with ativan. * on folic acid, thiamine and multivite. DVT: SCDs Charges/Coding Visit Charges Inpatient E&M: 50976 Subs Hosp L2
--- NOTE | 2022-09-06 19:33 | PN_ITS ---
Subjective Subjective Patient underwent cardiac catheterization today. No new stents were placed in his coronary arteries today. Blood thinners are still currently being held. He has not had a bowel movement yet. Objective Data Objective Data Vital Signs: Vital Signs Temp Pulse Resp BP Pulse Ox O2 Del Method O2 Flow Rate 96.8 F L 42 L 16 100/73 95 Nasal Cannula 2 09/06/22 14:48 09/06/22 14:48 09/06/22 14:48 09/06/22 14:48 09/06/22 14:48 09/06/22 14:48 09/04/22 17:45 Oxygen Flow Rate (L/min) 2 Oxygen Delivery Method Nasal Cannula Weight: 197 lb 1.492 oz Body Mass Index (BMI) 26.9 Intake & Output: Intake and Output for Last 24 Hours 09/04/22 09/05/22 09/06/22 23:59 23:59 23:59 Intake Total 6464.56 / 6464.56 3291.17 / 3291.17 1690.00 / 1690.00 Balance 6464.56 / 6464.56 3291.17 / 3291.17 1690.00 / 1690.00 Lab / Micro Data Result Diagrams: 09/06/22 16:20 09/06/22 06:00 Labs: Laboratory Results - last 24 hr 09/06/22 06:00: WBC 7.2, RBC 2.46 L, Hgb 8.0 L, Hct 24.3 L, MCV 98.8 H, MCH 32.5 H, MCHC 32.9, RDW Std Deviation 67.3 H, RDW Coeff of Dorie 18.7 H, Plt Count 136 L , MPV 9.9, Immature Gran % (Auto) 0.600, Neut % (Auto) 69.2, Lymph % (Auto) 10.6 L, [place] % (Auto) 10.7 H, Eos % (Auto) 8.5 H, Baso % (Auto) 0.4, Absolute Neuts (auto) 5.0, Absolute Lymphs (auto) 0.76 L, Nucleated RBC % 0, Differential Comment SCANNED, Anisocytosis 1+, Microcytosis 1+ 09/06/22 06:00: Sodium 144, Potassium 3.3 L, Chloride 116 H, Carbon Dioxide 22.0, Anion Gap 6, BUN 3 L, Creatinine 0.66 L, Estim Creat Clear Calc 69.96, Est GFR (MDRD) Af Amer 152, Est GFR (MDRD) Non-Af 126, BUN/Creatinine Ratio 4.5 L, G lucose 93, Calcium 8.0 L 09/06/22 16:20: Hgb 9.3 L, Hct 28.7 L Micro: Microbiology 09/02/22 22:40 Stool Stool Lactoferrin - Final 09/02/22 22:40 Stool Enteric Bacteriology - Final 09/02/22 22:40 Stool C. difficile DNA Amplification - Final Physical Exam Narrative General: Alert, Oriented x3, Cooperative, No apparent distress HEENT: Atraumatic, PERRLA, EOMI, Normocephalic Oral: Moist Mucosa Neck: Supple, No JVD Lungs: Diminished, Normal air movement, No rhonchi, No wheeze, No rales Cardiovascular: Regular rate, Regular Rhythm, Normal S1, Normal S2, No murmurs Abdomen: Soft, Non Tender, Non-Distended, No Hepato-splenomegaly Extremities: No edema, Capillary Refill Less than 3 Seconds Skin: No rashes, No breakdown Musculoskeletal: No Tenderness to Palpation of Joints or Extremities Neurological: Cranial nerves II-XII grossly intact, Motor Exam 5/5 strength throughout, Sensory exam intact to light touch and pain Psych/Mental Status: Normal Affect, Appropriate Assessment & Plan Assessment/Plan (1) NSTEMI (non-ST elevated myocardial infarction): PLAN: Non-ST segment elevation ND treated with heparin over the weekend and developed recurrent lower GI bleeding secondary to diverticular bleeding that was treated endoscopically. Recommending to hold antiplatelet therapy for at least a week. (2) Bloody diarrhea: PLAN: The Patient underwent 2 colonoscopies for recurrent GI bleeding secondary to status post endoscopic treatment. His hemoglobin is currently 10.1 and holding steady. Most diverticular bleeds will heal on its own without anti coagulation or antiplatelet therapy. This usually is 80% at will stop and 20% will not stop. He has not bled in 24 hours. His vitals are stable. (3) Acute blood loss anemia: PLAN: Monitor H&H every 6 hours. He is okay to have a liquid diet. I will give him an iron transfusion today and he should have one tomorrow if he is going to be discharged tomorrow. Charges/Coding Visit Charges Inpatient E&M: 12286 Subs Hosp L3
[2022-09-06] MEDS: Atorvastatin Calcium 80 MG Tablet PO (22:47)
[2022-09-06] MEDS: 0.9% Saline Lock 10 ML Syringe IV (22:49)
[2022-09-07] MEDS: 0.9% Normal Saline 1,000 ML 75 ML IV ×2 (02:26→17:04)
[2022-09-07 04:30] VITALS: BP 114/66; PULSE 63; RESP 16; TEMP 36.8; O2SAT 96
[2022-09-07 06:41] LABS: Absolute Lymphocyte Count 0.54 X10^3/uL (0.83-4.51); Absolute Neutrophil Count 4.5 X10^3/uL (2.0-7.7); Basophil# 0.03 X10^3/uL; Basophil% 0.5 % (0-1); Eosinophil# 0.55 X10^3/uL; Eosinophils% 8.6 % (0-5); Hematocrit 23.4 % (40-54); Hemoglobin 7.4 g/dL (13.0-16.5); Lymphocyte # 0.54 X10^3/ul (0.83-4.51); Lymphocyte % 8.5 % (19-41); Mean Corp Hgb Conc 31.6 g/dL (32-36); Mean Corpuscular Volume 101.3 fL (80-94); Mean Platelet Vol. 10.1 fl (6.2-12.0); Monocyte# 0.76 X10^3/uL; Monocyte% 11.9 % (0-10); NRBC Flagged by Analyzer 0 % (0-5); Neutrophil # 4.46 X10^3/uL (2.7-7.7); Neutrophil % 69.9 % (47-70); POSITIVE DIFFERENTIAL YES; POSITIVE MORPHOLOGY YES; Platelet Count 165 K/mm3 (150-450); RBC Distribution Width CV 18.3 % (11.6-14.6); RBC Distribution Width SD 66.8 fl (35.1-43.9); Red Blood Count 2.31 M/mm3 (4.6-6.2); White Blood Count 6.4 K/mm3 (4.4-11.0)
[2022-09-07 06:45] LABS: Differential Indicated SCAN CRITERIA MET
[2022-09-07 07:03] LABS: Anisocytosis 1+; Differential Comment SCANNED; Macrocytosis 1+
[2022-09-07 07:18] LABS: Anion Gap 5 (5-15); BUN 2 mg/dL (7-18); BUN/Creat Ratio 3.4 RATIO (10-20); Calcium,Total 7.7 mg/dL (8.5-10.1); Chloride 116 mmol/L (98-107); EST Glomerular Filtration Rate 142 mL/min (>60); Est Glom Filt Rate - Afr Amer 172 mL/min (>60); Estimated Creatinine Clearance 69.96 ml/min; Glucose 91 mg/dL (74-106); Potassium 3.3 mmol/L (3.5-5.1); Sodium Level 145 mmol/L (136-145)
[2022-09-07 08:00] VITALS: BP 121/76; PULSE 69; RESP 16; TEMP 36.9; O2SAT 95
--- NOTE | 2022-09-07 08:00 | PCM.PN.CARD ---
Subjective Subjective Patient seen and evaluated. Objective Data Vital Signs: Vital Signs Temp Pulse Resp BP Pulse Ox O2 Del Method O2 Flow Rate 98.2 F 63 16 114/66 96 Room Air 2 09/07/22 04:30 09/07/22 04:30 09/07/22 04:30 09/07/22 04:30 09/07/22 04:30 09/07/22 04:43 09/04/22 17:45 Oxygen Flow Rate (L/min) 2 Oxygen Delivery Method Room Air Weight: 196 lb 13.965 oz Body Mass Index (BMI) 26.9 Intake & Output: Intake and Output for Last 24 Hours 09/05/22 09/06/22 09/07/22 23:59 23:59 23:59 Intake Total 3291.17 / 3291.17 2590.00 / 2590.00 956.25 / 956.25 Balance 3291.17 / 3291.17 2590.00 / 2590.00 956.25 / 956.25 Lab / Micro Data Result Diagrams: 09/07/22 06:31 09/07/22 06:31 Labs: Laboratory Results - last 24 hr 09/06/22 16:20: Hgb 9.3 L, Hct 28.7 L 09/07/22 06:31: WBC 6.4, RBC 2.31 L, Hgb 7.4 L, Hct 23.4 L, MCV 101.3 H, MCH 32.0, MCHC 31.6 L, RDW Std Deviation 66.8 H, RDW Coeff of Dorie 18.3 H, Plt Count 165, MPV 10.1, Immature Gran % (Auto) 0.600, Neut % (Auto) 69.9, Lymph % (Auto) 8.5 L, [place] % (Auto) 11.9 H, Eos % (Auto) 8.6 H, Baso % (Auto) 0.5, Absolute Neuts (auto) 4.5, Absolute Lymphs (auto) 0.54 L, Nucleated RBC % 0, Differential Comment SCANNED, Anisocytosis 1+, Macrocytosis 1+ 09/07/22 06:31: Sodium 145, Potassium 3.3 L, Chloride 116 H, Carbon Dioxide 24.0, Anion Gap 5, BUN 2 L, Creatinine 0.60 L, Estim Creat Clear Calc 69.96, Est GFR (MDRD) Af Amer 172, Est GFR (MDRD) Non-Af 142, BUN/Creatinine Ratio 3.4 L, Glucose 91, Calcium 7.7 L Cardiology Labs/Tests 09/06/22 16:20: Hgb 9.3 L, Hct 28.7 L 09/07/22 06:31: WBC 6.4, RBC 2.31 L, Hgb 7.4 L, Hct 23.4 L, MCV 101.3 H, MCH 32.0, MCHC 31.6 L, Plt Count 165, MPV 10.1, Immature Gran % (Auto) 0.600, Neut % (Auto) 69.9, Lymph % (Auto) 8.5 L, [place] % (Auto) 11.9 H, Eos % (Auto) 8.6 H, Baso % (Auto) 0.5, Absolute Neuts (auto) 4.5, Nucleated RBC % 0 09/07/22 06:31: Sodium 145, Potassium 3.3 L, Chloride 116 H, Carbon Dioxide 24.0, Anion Gap 5, BUN 2 L, Creatinine 0.60 L, Est GFR (MDRD) Af Amer 172, Est GFR (MDRD) Non-Af 142, BUN/Creatinine Ratio 3.4 L, Glucose 91, Calcium 7.7 L Rhythm: EKG: ECHO: Stress Test: Cardiac Cath: PCI: CT Surgery: Holter monitor: EPS: PPM: CXR: Chest CT Scan: Physical Exam Const alert and oriented x3 Constitutional Narrative: anxious, tearful HEENT head/scalp atraumatic, moist oral mucous membranes and oropharynx normal Head and Scalp: normocephalic Mouth: dry mucous membranes Eyes PERRL, EOMs intact bilaterally and conjunctivae normal Neck no lymphadenopathy and supple Resp normal respiratory effort, no retractions, no use of accessory muscles and clear to auscultation bilaterally Cardio regular rate, regular rhythm, S1 normal heart sound, S2 normal heart sound and no murmurs GI normal to inspection, nondistended, normoactive bowel sounds, soft to palpation, non-tender and non-distended Extremity normal to inspection, full ROM and no clubbing, cyanosis or edema Neuro oriented x3, CN's II-XII intact bilaterally, moves all extremities and no focal motor deficits Sensorium / Orientation: awake and alert Motor Exam: strength 5/5 throughout Psych Mood & Affect: anxious Assessment & Plan Assessment/Plan (1) NSTEMI (non-ST elevated myocardial infarction): PLAN: Patient presented with anemia and chest discomfort and is noted now to have a non-ST elevation myocardial infarction. The above is likely a type II event from demand ischemia. He does have known coronary artery disease . Cardiac catheterization demonstrated the following: Left main coronary artery without significant disease. Left anterior descending artery previously stented with mild in-stent stenosis and then diffuse distal disease up to about 80%. Left circumflex artery which is totally occluded in the proximal segment and fills via left to left and right to left collaterals. Right coronary artery previously stented with diffuse disease and moderate in-stent stenosis and distal diffuse disease of 50% and right to left collaterals filling the distal LAD as well as the distal circumflex artery Mild left ventricular systolic dysfunction with hypokinesis of the anterior apical wall. Based on the above angiographic findings I would recommend continued medical therapy. We will recommend holding off on antiplatelet agents for at least 10 days. If restarted will restart Plavix only. Then add aspirin. His stent was over 6 months old. (2) History of hypertension: PLAN: He does have a history of hypertension his blood pressure is under good control no changes to be made we will continue with current therapy. Thank you for allowing me to participate in the care of your patient. Please don't hesitate to call if any issues arise.
[2022-09-07] MEDS: Folic Acid 1 MG Tablet PO (08:37)
[2022-09-07] MEDS: Pantoprazole Sodium 40 MG Tablet PO ×2 (08:37→21:15)
[2022-09-07] MEDS: Thiamine Hydrochloride 100 MG Tablet PO (08:38)
[2022-09-07] MEDS: Allopurinol 100 MG Tablet PO (09:50)
--- NOTE | 2022-09-07 12:51 | PN.HOSP_ITS ---
Reason for Visit Reason for Visit: Diagnoses Acute posthemorrhagic anemia (09/02/22) Non-ST elevation (NSTEMI) myocardial infarction (09/02/22) Chest pain, unspecified (09/02/22) Diarrhea, unspecified (09/02/22) Personal history of other diseases of the circulatory system (09/02/22) Subjective Subjective No issues overnight, hemoglobin dropped to 7.4. According to nursing he did have a bowel movement today that had some clots Objective Data Objective Data Vital Signs: Vital Signs Temp Pulse Resp BP Pulse Ox O2 Del Method O2 Flow Rate 98.5 F 69 16 121/76 H 95 Room Air 2 09/07/22 08:00 09/07/22 08:00 09/07/22 08:00 09/07/22 08:00 09/07/22 08:00 09/07/22 10:00 09/04/22 17:45 Oxygen Flow Rate (L/min) 2 Oxygen Delivery Method Room Air Weight: 196 lb 13.965 oz Body Mass Index (BMI) 26.9 Intake & Output: Intake and Output for Last 24 Hours 09/06/22 09/07/22 09/08/22 03:59 03:59 03:59 Intake Total 3884.92 / 3884.92 2902.50 / 2902.50 50 / 50 Balance 3884.92 / 3884.92 2902.50 / 2902.50 50 / 50 Lab / Micro Data Result Diagrams: 09/07/22 06:31 09/07/22 06:31 Labs: Laboratory Results - last 24 hr 09/06/22 16:20: Hgb 9.3 L, Hct 28.7 L 09/07/22 06:31: WBC 6.4, RBC 2.31 L, Hgb 7.4 L, Hct 23.4 L, MCV 101.3 H, MCH 32.0, MCHC 31.6 L, RDW Std Deviation 66.8 H, RDW Coeff of Dorie 18.3 H, Plt Count 165, MPV 10.1, Immature Gran % (Auto) 0.600, Neut % (Auto) 69.9, Lymph % (Auto) 8.5 L, [place] % (Auto) 11.9 H, Eos % (Auto) 8.6 H, Baso % (Auto) 0.5, Absolute Neuts (auto) 4.5, Absolute Lymphs (auto) 0.54 L, Nucleated RBC % 0, Differential Comment SCANNED, Anisocytosis 1+, Macrocytosis 1+ 09/07/22 06:31: Sodium 145, Potassium 3.3 L, Chloride 116 H, Carbon Dioxide 24.0, Anion Gap 5, BUN 2 L, Creatinine 0.60 L, Estim Creat Clear Calc 69.96, Est GFR (MDRD) Af Amer 172, Est GFR (MDRD) Non-Af 142, BUN/Creatinine Ratio 3.4 L, Glucose 91, Calcium 7.7 L Micro: Microbiology 09/02/22 22:40 Stool Stool Lactoferrin - Final 09/02/22 22:40 Stool Enteric Bacteriology - Final 09/02/22 22:40 Stool C. difficile DNA Amplification - Final Physical Exam Narrative General: Alert, Oriented x3, Cooperative, No apparent distress HEENT: Atraumatic, PERRLA, EOMI, Normocephalic Oral: Moist Mucosa Neck: Supple, No JVD Lungs: Diminished, Normal air movement, No rhonchi, No wheeze, No rales Cardiovascular: Regular rate, Regular Rhythm, Normal S1, Normal S2, No murmurs Abdomen: Soft, Non Tender, Non-Distended, No Hepato-splenomegaly Extremities: No edema, Capillary Refill Less than 3 Seconds Skin: No rashes, No breakdown Musculoskeletal: No Tenderness to Palpation of Joints or Extremities Neurological: Cranial nerves II-XII grossly intact, Motor Exam 5/5 strength throughout, Sensory exam intact to light touch and pain Psych/Mental Status: Normal Affect, Appropriate Assessment & Plan Assessment/Plan (1) Acute blood loss anemia: (2) Bloody diarrhea: (3) Chest pain: PLAN: Plan #Rectal bleeding with acute on chronic anemia and hypotension/non-STEMI type II with a history of CAD status post stents/HTN/HLD * admitted with a complaints of rectal bleeding. * had colonoscopy which showed diverticulosis in the recto sigmoid colon, sigmoid, descending colon and at the splenic flexure and transverse colon; 2 bleeding colonic angiodysplastic lesions which were treated argon plasma coagulation. * GI on board * Will give him another dose of IV iron and repeat hemoglobin in the morning * Transfused 2 units of PRBCs * Heart cath demonstrates coronary artery disease, with previous stents showing mild in-stent stenoses within the LAD and then a totally occluded left circumflex artery and a diffuse disease of the right coronary artery * on statin, atenolol. Aspirin and plavix on hold. * 2D echo showed EF of 50% with mild segmental systolic dysfunction. Records requested from [facility] * Appreciate cardiology's assistance, will restart Plavix by itself in about a week #Acute alcohol withdrawal * patient has a history of heavy alcohol use, and drinks 4-6 drinks daily. * alcohol withdrawal protocol with ativan. * on folic acid, thiamine and multivitamin. DVT: SCDs Charges/Coding Visit Charges Inpatient E&M: 26690 Subs Hosp L2
[2022-09-07 13:10] LABS: Hemoglobin 8.3 g/dL (13.0-16.5)
[2022-09-07 14:00] VITALS: BP 131/75; PULSE 79; RESP 18; TEMP 37.1; O2SAT 100
--- NOTE | 2022-09-07 19:29 | PN_ITS ---
Subjective Subjective Patient did have a bloody bowel movement today. He denies any abdominal pain. He has been on a liquid diet. Objective Data Objective Data Vital Signs: Vital Signs Temp Pulse Resp BP Pulse Ox O2 Del Method O2 Flow Rate 98.7 F 79 18 131/75 H 100 Room Air 2 09/07/22 14:00 09/07/22 14:00 09/07/22 14:00 09/07/22 14:00 09/07/22 14:00 09/07/22 14:00 09/04/22 17:45 Oxygen Flow Rate (L/min) 2 Oxygen Delivery Method Room Air Weight: 196 lb 13.965 oz Body Mass Index (BMI) 26.9 Intake & Output: Intake and Output for Last 24 Hours 09/05/22 09/06/22 09/07/22 23:59 23:59 23:59 Intake Total 3291.17 / 3291.17 2590.00 / 2590.00 2566.25 / 2566.25 Balance 3291.17 / 3291.17 2590.00 / 2590.00 2566.25 / 2566.25 Lab / Micro Data Result Diagrams: 09/07/22 13:05 09/07/22 06:31 Labs: Laboratory Results - last 24 hr 09/07/22 06:31: WBC 6.4, RBC 2.31 L, Hgb 7.4 L, Hct 23.4 L, MCV 101.3 H, MCH 32.0, MCHC 31.6 L, RDW Std Deviation 66.8 H, RDW Coeff of Dorie 18.3 H, Plt Count 165, MPV 10.1, Immature Gran % (Auto) 0.600, Neut % (Auto) 69.9, Lymph % (Auto) 8.5 L, [place] % (Auto) 11.9 H, Eos % (Auto) 8.6 H, Baso % (Auto) 0.5, Absolute Neuts (auto) 4.5, Absolute Lymphs (auto) 0.54 L, Nucleated RBC % 0, Differential Comment SCANNED, Anisocytosis 1+, Macrocytosis 1+ 09/07/22 06:31: Sodium 145, Potassium 3.3 L, Chloride 116 H, Carbon Dioxide 24.0, Anion Gap 5, BUN 2 L, Creatinine 0.60 L, Estim Creat Clear Calc 69.96, Est GFR (MDRD) Af Amer 172, Est GFR (MDRD) Non-Af 142, BUN/Creatinine Ratio 3.4 L, Glucose 91, Calcium 7.7 L 09/07/22 13:05: Hgb 8.3 L Micro: Microbiology 09/02/22 22:40 Stool Stool Lactoferrin - Final 09/02/22 22:40 Stool Enteric Bacteriology - Final 09/02/22 22:40 Stool C. difficile DNA Amplification - Final Physical Exam Narrative General: Alert, Oriented x3, Cooperative, No apparent distress HEENT: Atraumatic, PERRLA, EOMI, Normocephalic Oral: Moist Mucosa Neck: Supple, No JVD Lungs: Diminished, Normal air movement, No rhonchi, No wheeze, No rales Cardiovascular: Regular rate, Regular Rhythm, Normal S1, Normal S2, No murmurs Abdomen: Soft, Non Tender, Non-Distended, No Hepato-splenomegaly Extremities: No edema, Capillary Refill Less than 3 Seconds Skin: No rashes, No breakdown Musculoskeletal: No Tenderness to Palpation of Joints or Extremities Neurological: Cranial nerves II-XII grossly intact, Motor Exam 5/5 strength throughout, Sensory exam intact to light touch and pain Psych/Mental Status: Normal Affect, Appropriate Assessment & Plan Assessment/Plan (1) NSTEMI (non-ST elevated myocardial infarction): PLAN: Non-ST segment elevation [place] treated with heparin over the weekend and developed recurrent lower GI bleeding secondary to diverticular bleeding that was treated endoscopically. Recommending to hold antiplatelet therapy for at least a week. (2) Bloody diarrhea: PLAN: The Patient underwent 2 colonoscopies for recurrent GI bleeding secondary to status post endoscopic treatment. His hemoglobin is currently 10.1 and holding steady. Most diverticular bleeds will heal on its own without anticoagulation or antiplatelet therapy. This usually is 80% at will stop and 20% will not stop. He has not bled in 24 hours. His vitals are stable. (3) Acute blood loss anemia: PLAN: Monitor H&H every 6 hours. He is okay to have a liquid diet. I will give him an iron transfusion today and he should have one tomorrow if he is going to be discharged tomorrow. His hemoglobin went back up from 7.4-8.3. If his hemoglobin continues to be stable he can be DC'd from a GI standpoint. Charges/Coding Visit Charges Inpatient E&M: 26233 Subs Hosp L3
[2022-09-07 20:17] VITALS: BP 121/73; PULSE 74; RESP 18; TEMP 37.3; O2SAT 98
[2022-09-07] MEDS: 0.9% Saline Lock 10 ML Syringe IV (21:15)
[2022-09-07] MEDS: Atorvastatin Calcium 80 MG Tablet PO (21:15)
[2022-09-07] MEDS: Potassium Chloride Oral Tablet 20 MEQ 60 MEQ PO (21:15)
[2022-09-08 02:59] VITALS: BP 118/72; PULSE 67; RESP 16; TEMP 36.8; O2SAT 95
[2022-09-08 06:46] LABS: Absolute Neutrophil Count 3.7 X10^3/uL (2.0-7.7); Basophil# 0.02 X10^3/uL; Basophil% 0.3 % (0-1); Eosinophils% 8.7 % (0-5); Hematocrit 24.1 % (40-54); Hemoglobin 7.7 g/dL (13.0-16.5); Lymphocyte % 10.4 % (19-41); Mean Corpuscular Hgb 32.8 pg (27.0-32.0); Mean Corpuscular Volume 102.6 fL (80-94); Mean Platelet Vol. 9.9 fl (6.2-12.0); Monocyte# 0.88 X10^3/uL; Monocyte% 15.3 % (0-10); NRBC Flagged by Analyzer 0 % (0-5); Neutrophil # 3.73 X10^3/uL (2.7-7.7); POSITIVE DIFFERENTIAL YES; POSITIVE MORPHOLOGY YES; Platelet Count 196 K/mm3 (150-450); RBC Distribution Width CV 18.3 % (11.6-14.6); RBC Distribution Width SD 68.5 fl (35.1-43.9); Red Blood Count 2.35 M/mm3 (4.6-6.2); White Blood Count 5.8 K/mm3 (4.4-11.0)
[2022-09-08 06:50] LABS: Differential Indicated SCAN CRITERIA MET
[2022-09-08 07:07] LABS: Anion Gap 3 (5-15); BUN 2 mg/dL (7-18); BUN/Creat Ratio 3.1 RATIO (10-20); Calcium,Total 8.2 mg/dL (8.5-10.1); Chloride 116 mmol/L (98-107); Creatinine, Serum 0.65 mg/dL (0.70-1.30); EST Glomerular Filtration Rate 128 mL/min (>60); Est Glom Filt Rate - Afr Amer 155 mL/min (>60); Estimated Creatinine Clearance 69.96 ml/min; Glucose 103 mg/dL (74-106); Potassium 3.7 mmol/L (3.5-5.1); Sodium Level 145 mmol/L (136-145)
[2022-09-08 07:09] LABS: Anisocytosis 1+; Differential Comment SCANNED; Macrocytosis 1+
[2022-09-08 10:07] VITALS: BP 155/97; PULSE 69; RESP 16; TEMP 37.1; O2SAT 100
[2022-09-08] MEDS: Allopurinol 100 MG Tablet PO (10:25)
[2022-09-08] MEDS: Folic Acid 1 MG Tablet PO (10:25)
[2022-09-08] MEDS: Pantoprazole Sodium 40 MG Tablet PO ×2 (10:25→21:53)
[2022-09-08] MEDS: Thiamine Hydrochloride 100 MG Tablet PO (10:25)
[2022-09-08 15:45] VITALS: BP 135/74; PULSE 81; RESP 16; TEMP 36.8; O2SAT 99
--- NOTE | 2022-09-08 16:13 | PN.HOSP_ITS ---
Reason for Visit Reason for Visit: Diagnoses Acute posthemorrhagic anemia (09/02/22) Non-ST elevation (NSTEMI) myocardial infarction (09/02/22) Chest pain, unspecified (09/02/22) Diarrhea, unspecified (09/02/22) Personal history of other diseases of the circulatory system (09/02/22) Subjective Subjective Doing well, no issues overnight Objective Data Objective Data Vital Signs: Vital Signs Temp Pulse Resp BP Pulse Ox O2 Del Method O2 Flow Rate 98.7 F 69 16 155/97 H 100 Room Air 2 09/08/22 10:07 09/08/22 10:07 09/08/22 10:07 09/08/22 10:07 09/08/22 10:07 09/08/22 10:08 09/04/22 17:45 Oxygen Flow Rate (L/min) 2 Oxygen Delivery Method Room Air Weight: 201 lb 8.04 oz Body Mass Index (BMI) 26.9 Intake & Output: Intake and Output for Last 24 Hours 09/07/22 09/08/22 09/09/22 03:59 03:59 03:59 Intake Total 2902.50 / 2902.50 1660 / 1660 1160 / 1160 Balance 2902.50 / 2902.50 1660 / 1660 1160 / 1160 Lab / Micro Data Result Diagrams: 09/08/22 06:30 09/08/22 06:30 Labs: Laboratory Results - last 24 hr 09/08/22 06:30: WBC 5.8, RBC 2.35 L, Hgb 7.7 L, Hct 24.1 L, MCV 102.6 H, MCH 32.8 H, MCHC 32.0, RDW Std Deviation 68.5 H, RDW Coeff of Dorie 18.3 H, Plt Count 196, MPV 9.9, Immature Gran % (Auto) 0.300, Neut % (Auto) 65.0, Lymph % (Auto) 10.4 L, [place] % (Auto) 15.3 H, Eos % (Auto) 8.7 H, Baso % (Auto) 0.3, Absolute Neuts (auto) 3.7, Absolute Lymphs (auto) 0.60 L, Nucleated RBC % 0, Differential Comment SCANNED, Anisocytosis 1+, Macrocytosis 1+ 02/16/23 06:30: Sodium 145, Potassium 3.7, Chloride 116 H, Carbon Dioxide 26.0, Anion Gap 3 L, BUN 2 L, Creatinine 0.65 L, Estim Creat Clear Calc 69.96, Est GFR (MDRD) Af Amer 155, Est GFR (MDRD) Non-Af 128, BUN/Creatinine Ratio 3.1 L, Glucose 103, Calcium 8.2 L Micro: Microbiology 09/02/22 22:40 Stool Stool Lactoferrin - Final 09/02/22 22:40 Stool Enteric Bacteriology - Final 09/02/22 22:40 Stool C. difficile DNA Amplification - Final Physical Exam Narrative General: Alert, Oriented x3, Cooperative, No apparent distress HEENT: Atraumatic, PERRLA, EOMI, Normocephalic Oral: Moist Mucosa Neck: Supple, No JVD Lungs: Diminished, Normal air movement, No rhonchi, No wheeze, No rales Cardiovascular: Regular rate, Regular Rhythm, Normal S1, Normal S2, No murmurs Abdomen: Soft, Non Tender, Non-Distended, No Hepato-splenomegaly Extremities: No edema, Capillary Refill Less than 3 Seconds Skin: No rashes, No breakdown Musculoskeletal: No Tenderness to Palpation of Joints or Extremities Neurological: Cranial nerves II-XII grossly intact, Motor Exam 5/5 strength throughout, Sensory exam intact to light touch and pain Psych/Mental Status: Normal Affect, Appropriate Assessment & Plan Assessment/Plan (1) Acute blood loss anemia: (2) Bloody diarrhea: (3) Chest pain: PLAN: Plan #Rectal bleeding with acute on chronic anemia and hypotension/non-STEMI type II with a history of CAD status post stents/HTN/HLD * admitted with a complaints of rectal bleeding. * had colonoscopy which showed diverticulosis in the recto sigmoid colon, sigmoid, descending colon and at the splenic flexure and transverse colon; 2 bleeding colonic angiodysplastic lesions which were treated argon plasma coagulation. * GI on board * Will give him another dose of IV iron and repeat hemoglobin in the morning * Will start him on a cardiac diet as it does not appear that he is bleeding anymore and see how he tolerates * PT and OT evaluated and did not feel as needed SNF * Transfused 2 units of PRBCs * Heart cath demonstrates coronary artery disease, with previous stents showing mild in-stent stenoses within the LAD and then a totally occluded left circumflex artery and a diffuse disease of the right coronary artery * on statin, atenolol. Aspirin and plavix on hold. * 2D echo showed EF of 50% with mild segmental systolic dysfunction. Records requested from [facility] * Appreciate cardiology's assistance, will restart Plavix by itself in about a week #Acute alcohol withdrawal * patient has a history of heavy alcohol use, and drinks 4-6 drinks daily. * alcohol withdrawal protocol with ativan. * on folic acid, thiamine and multivitamin. DVT: SCDs Charges/Coding Visit Charges Inpatient E&M: 04388 Subs Hosp L2
--- NOTE | 2022-09-08 18:53 | PCM.PROGNOTE ---
Subjective Subjective Patient says that he still feels fatigued and weak. I explained to him that he did have a non-ST segment elevation [place] secondary to demand ischemia from acute blood loss anemia. Objective Data Objective Data Vital Signs: Vital Signs Temp Pulse Resp BP Pulse Ox O2 Del Method O2 Flow Rate 98.3 F 81 16 135/74 H 99 Room Air 2 09/08/22 15:45 09/08/22 15:45 09/08/22 15:45 09/08/22 15:45 09/08/22 15:45 09/08/22 15:45 09/04/22 17:45 Oxygen Flow Rate (L/min) 2 Oxygen Delivery Method Room Air Weight: 201 lb 8.04 oz Body Mass Index (BMI) 26.9 Intake & Output: Intake and Output for Last 24 Hours 09/06/22 09/07/22 09/08/22 23:59 23:59 23:59 Intake Total 2590.00 / 2590.00 2566.25 / 2566.25 2210 / 2210 Balance 2590.00 / 2590.00 2566.25 / 2566.25 2210 / 2210 Lab / Micro Data Result Diagrams: 09/08/22 06:30 09/08/22 06:30 Labs: Laboratory Results - last 24 hr 09/08/22 06:30: WBC 5.8, RBC 2.35 L, Hgb 7.7 L, Hct 24.1 L, MCV 102.6 H, MCH 32.8 H, MCHC 32.0, RDW Std Deviation 68.5 H, RDW Coeff of Dorie 18.3 H, Plt Count 196, MPV 9.9, Immature Gran % (Auto) 0.300, Neut % (Auto) 65.0, Lymph % (Auto) 10.4 L, [place] % (Auto) 15.3 H, Eos % (Auto) 8.7 H, Baso % (Auto) 0.3, Absolute Neuts (auto) 3.7, Absolute Lymphs (auto) 0.60 L, Nucleated RBC % 0, Differential Comment SCANNED, Anisocytosis 1+, Macrocytosis 1+ 09/08/22 06:30: Sodium 145, Potassium 3.7, Chloride 116 H, Carbon Dioxide 26.0, Anion Gap 3 L, BUN 2 L, Creatinine 0.65 L, Estim Creat Clear Calc 69.96, Est GFR (MDRD) Af Amer 155, Est GFR (MDRD) Non-Af 128, BUN/Creatinine Ratio 3.1 L, Glucose 103, Calcium 8.2 L Micro: Microbiology 09/02/22 22:40 Stool Stool Lactoferrin - Final 09/02/22 22:40 Stool Enteric Bacteriology - Final 09/02/22 22:40 Stool C. difficile DNA Amplification - Final Physical Exam Narrative General: Alert, Oriented x3, Cooperative, No apparent distress HEENT: Atraumatic, PERRLA, EOMI, Normocephalic Oral: Moist Mucosa Neck: Supple, No JVD Lungs: Diminished, Normal air movement, No rhonchi, No wheeze, No rales Cardiovascular: Regular rate, Regular Rhythm, Normal S1, Normal S2, No murmurs Abdomen: Soft, Non Tender, Non-Distended, No Hepato-splenomegaly Extremities: No edema, Capillary Refill Less than 3 Seconds Skin: No rashes, No breakdown Musculoskeletal: No Tenderness to Palpation of Joints or Extremities Neurological: Cranial nerves II-XII grossly intact, Motor Exam 5/5 strength throughout, Sensory exam intact to light touch and pain Psych/Mental Status: Normal Affect, Appropriate Assessment & Plan Assessment/Plan (1) NSTEMI (non-ST elevated myocardial infarction): PLAN: Non-ST segment elevation [place] treated with heparin over the weekend and developed recurrent lower GI bleeding secondary to diverticular bleeding that was treated endoscopically. Recommending to hold antiplatelet therapy for at least a week. (2) Bloody diarrhea: PLAN: The Patient underwent 2 colonoscopies for recurrent GI bleeding secondary to status post endoscopic treatment. His hemoglobin is currently 10.1 and holding steady. Most diverticular bleeds will heal on its own without anticoagulation or antiplatelet therapy. This usually is 80% at will stop and 20% will not stop. He has not bled in 24 hours. His vitals are stable. (3) Acute blood loss anemia: PLAN: Monitor H&H every 6 hours. He is okay to have a liquid diet. I will give him an iron transfusion today and he should have one tomorrow if he is going to be discharged tomorrow. His hemoglobin went back up from 7.4-8.3. If his hemoglobin continues to be stable he can be DC'd from a GI standpoint. Charges/Coding Visit Charges Inpatient E&M: 77861 Subs Hosp L3
[2022-09-08 20:34] VITALS: BP 116/65; PULSE 113; RESP 20; TEMP 36.6; O2SAT 95
[2022-09-08 21:52] VITALS: BP 157/88; PULSE 78; RESP 20; TEMP 36.8; O2SAT 100
[2022-09-08] MEDS: Atorvastatin Calcium 80 MG Tablet PO (21:53)
[2022-09-08 23:39] VITALS: PULSE 144
--- NOTE | 2022-09-09 01:16 | NURSING ---
Pt noted walking in hallway with IV and GALLEY HAND per pt request. Pt noted with complaint of feeling 'winded' and chest heaviness while walking. no referred pain noted. no nausea or vomiting. pt states, the discomfort is similar to when I had my heart attack. Pt walked to room and sat on pt bed, and pain is relieved also immediately when at rest. VSS. 02 is 100% on RA. Pt encourage to increase exercise in small amounts d/t his discomfort. 221- DR rivera provided with update on pt, no new orders at this time, will continue to monitor pt. [id number]- pt ambulatory to restroom pt noted with HR 144, HR recovered quickly. will monitor.
[2022-09-09 03:40] VITALS: BP 141/80; PULSE 70; RESP 18; TEMP 36.7; O2SAT 97
[2022-09-09 05:55] LABS: Absolute Lymphocyte Count 0.55 X10^3/uL (0.83-4.51); Absolute Neutrophil Count 3.7 X10^3/uL (2.0-7.7); Basophil# 0.03 X10^3/uL; Basophil% 0.5 % (0-1); Eosinophil# 0.44 X10^3/uL; Hematocrit 24.4 % (40-54); Hemoglobin 7.6 g/dL (13.0-16.5); Lymphocyte # 0.55 X10^3/ul (0.83-4.51); Mean Corp Hgb Conc 31.1 g/dL (32-36); Mean Corpuscular Hgb 32.5 pg (27.0-32.0); Mean Corpuscular Volume 104.3 fL (80-94); Mean Platelet Vol. 9.9 fl (6.2-12.0); Monocyte# 0.76 X10^3/uL; Monocyte% 13.8 % (0-10); NRBC Flagged by Analyzer 0 % (0-5); Neutrophil # 3.69 X10^3/uL (2.7-7.7); Neutrophil % 67.3 % (47-70); POSITIVE DIFFERENTIAL YES; POSITIVE MORPHOLOGY YES; Platelet Count 212 K/mm3 (150-450); RBC Distribution Width CV 17.7 % (11.6-14.6); RBC Distribution Width SD 67.8 fl (35.1-43.9); Red Blood Count 2.34 M/mm3 (4.6-6.2); White Blood Count 5.5 K/mm3 (4.4-11.0)
[2022-09-09 06:01] LABS: Differential Indicated SCAN CRITERIA MET
[2022-09-09 06:22] LABS: Anisocytosis 1+; Differential Comment SCANNED; Macrocytosis 1+
--- NOTE | 2022-09-09 07:00 | PCM.PROGNOTE ---
Subjective Subjective Patient has not had any more signs or symptoms of GI bleeding. Objective Data Objective Data Vital Signs: Vital Signs Temp Pulse Resp BP Pulse Ox O2 Del Method O2 Flow Rate 98.1 F 76 15 145/80 H 100 Room Air 2 09/09/22 15:29 09/09/22 15:29 09/09/22 15:29 09/09/22 15:29 09/09/22 15:29 09/09/22 15:29 09/04/22 17:45 Oxygen Flow Rate (L/min) 2 Oxygen Delivery Method Room Air Weight: 199 lb 8.293 oz Body Mass Index (BMI) 26.9 Intake & Output: Intake and Output for Last 24 Hours 09/07/22 09/08/22 09/09/22 23:59 23:59 23:59 Intake Total 2566.25 / 2566.25 2260 / 2500 850 / 850 Output Total 300 / 300 Balance 2566.25 / 2566.25 2260 / 2500 550 / 550 Lab / Micro Data Result Diagrams: 09/09/22 05:30 09/08/22 06:30 Labs: Laboratory Results - last 24 hr 09/09/22 05:30: WBC 5.5, RBC 2.34 L, Hgb 7.6 L, Hct 24.4 L, MCV 104.3 H, MCH 32.5 H, MCHC 31.1 L, RDW Std Deviation 67.8 H, RDW Coeff of Dorie 17.7 H, Plt Count 212, MPV 9.9, Immature Gran % (Auto) 0.400, Neut % (Auto) 67.3, Lymph % (Auto) 10.0 L, [place] % (Auto) 13.8 H, Eos % (Auto) 8.0 H, Baso % (Auto) 0.5, Absolute Neuts (auto) 3.7, Absolute Lymphs (auto) 0.55 L, Nucleated RBC % 0, Differential Comment SCANNED, Anisocytosis 1+, Macrocytosis 1+ Micro: Microbiology 09/02/22 22:40 Stool Stool Lactoferrin - Final 09/02/22 22:40 Stool Enteric Bacteriology - Final 09/02/22 22:40 Stool C. difficile DNA Amplification - Final Physical Exam Narrative General: Alert, Oriented x3, Cooperative, No apparent distress HEENT: Atraumatic, PERRLA, EOMI, Normocephalic Oral: Moist Mucosa Neck: Supple, No JVD Lungs: Diminished, Normal air movement, No rhonchi, No wheeze, No rales Cardiovascular: Regular rate, Regular Rhythm, Normal S1, Normal S2, No murmurs Abdomen: Soft, Non Tender, Non-Distended, No Hepato-splenomegaly Extremities: No edema, Capillary Refill Less than 3 Seconds Skin: No rashes, No breakdown Musculoskeletal: No Tenderness to Palpation of Joints or Extremities Neurological: Cranial nerves II-XII grossly intact, Motor Exam 5/5 strength throughout, Sensory exam intact to light touch and pain Psych/Mental Status: Normal Affect, Appropriate Assessment & Plan Assessment/Plan (1) NSTEMI (non-ST elevated myocardial infarction): PLAN: Non-ST segment elevation [place] treated with heparin over the weekend and developed recurrent lower GI bleeding secondary to diverticular bleeding that was treated endoscopically. Recommending to hold antiplatelet therapy for at least a week. (2) Bloody diarrhea: PLAN: The Patient underwent 2 colonoscopies for recurrent GI bleeding secondary to status post endoscopic treatment. His hemoglobin is currently 10.1 and holding steady. Most diverticular bleeds will heal on its own without anticoagulation or antiplatelet therapy. This usually is 80% at will stop and 20% will not stop. He has not bled in 24 hours. His vitals are stable. (3) Acute blood loss anemia: PLAN: Monitor H&H every 6 hours. He is okay to have a liquid diet. I will give him an iron transfusion today and he should have one tomorrow if he is going to be discharged tomorrow. His hemoglobin went back up from 7.4-8.3. If his hemoglobin continues to be stable he can be DC'd from a GI standpoint. Charges/Coding Visit Charges Inpatient E&M: 90133 Subs Hosp L3
--- NOTE | 2022-09-09 09:41 | DCINST_ITS ---
Discharge Instructions Diet Discharge Diet: Low fat / Low cholesterol Activity Discharge Activity: Return to Normal Activity Dressing / Incision Call your doctor if you observe: Fever of 101 or Higher, Shortness of breath, Dizziness, Fainting spells, Swelling in the ankles, Chest pain and Increased palpitations (irregular heartbeat) Follow Up Care Test Results: Test results from this visit will be discussed in further detail at your follow- up appointment, if applicable. Discharge Plan Admission Admit Date/Time: 09/02/22 14:43 Attending Provider: Obdulio Crespo Primary Care Provider: Valeriano Beasley Consulting Providers: Jael Ramos ; Lukas Cuevas ; Melissa Corbin Instructions Additional Instructions / Restrictions: Follow-up with your PCP in 3 to 5 days to obtain outpatient follow-up for your hemoglobin Discharge Orders/Prescriptions Prescriptions: New ascorbic acid (vitamin C) 500 mg Tablet 1,000 mg PO BIDCM 30 Days Qty: 120 0RF Rx Instructions: Take with iron tablets ferrous sulfate [FeroSul] 325 mg (65 mg iron) Tablet 325 mg PO 1200,1700 30 Days Qty: 60 0RF pantoprazole 40 mg Tablet,Delayed Release (Dr/Ec) 40 mg PO BID 30 Days Qty: 60 0RF Continued atorvastatin 80 mg Tablet 80 mg PO DAILY doxepin 25 mg Capsule 25 mg PO QHS allopurinol 100 mg Tablet 100 mg PO DAILY atenolol 50 mg Tablet 50 mg PO DAILY ofloxacin 0.3 % drops 1 drp EACH EYE 4X/DAY Label Comments: Instill 1 drop into right eye four times a day Use QID in operative eye 3 days prior to surgery and QID after surgery Rx Instructions: Instill 1 drop into right eye four times a day Use QID in operative eye 3 days prior to surgery and QID after surgery nitroglycerin 0.4 mg tablet, sublingual 0.4 mg sublingual UD PRN (Reason: Chest Pain) Label Comments: PLACE 1 TABLET UNDER TONGUE EVERY 5 MINS, UP TO 3 DOSES NEEDED FOR CHEST PAIN Rx Instructions: PLACE 1 TABLET UNDER TONGUE EVERY 5 MINS, UP TO 3 DOSES NEEDED FOR CHEST PAIN ezetimibe 10 mg tablet 10 mg PO DAILY Held clopidogrel 75 mg Tablet 75 mg PO DAILY Hold Instructions: Resume on 09/16/22. aspirin 81 mg tablet,delayed release (DR/EC) 81 mg PO DAILY Hold Instructions: Resume on 10/01/22. Hold until your PCP/Control Chemist decide to restart Label Comments: TAKE 1 TABLET BY MOUTH EVERY DAY Referrals / Follow Up: Lukas Cuevas MD [Med Staff - Active Staff] - Within 3 Months Valeriano Beasley MD [Primary Care Provider] - Within 1 Week Ahmet Chacon DO [Med Staff - Active Staff] - Within 1 Month Disposition Disposition (needs filled in before D/C Order can be placed): Home, Self Care
[2022-09-09 09:46] VITALS: BP 145/82; PULSE 76; RESP 16; TEMP 36.6; O2SAT 99
[2022-09-09] MEDS: Folic Acid 1 MG Tablet PO (09:51)
[2022-09-09] MEDS: Thiamine Hydrochloride 100 MG Tablet PO (09:51)
[2022-09-09] MEDS: Pantoprazole Sodium 40 MG Tablet PO ×2 (09:51→22:44)
--- NOTE | 2022-09-09 10:20 | CASEMGMT ---
Patient has order for discharge. RN CM in to discuss needs at discharge. Patient walked 400ft stand by assist with therapy. Patient denied needs at discharge. RN CM updated patient that should he have additional questions or concerns to follow-up with PCP, patient voiced understanding.
[2022-09-09 10:22] VITALS: BP 145/82; PULSE 76; RESP 16; TEMP 36.6; O2SAT 99
[2022-09-09 10:23] VITALS: BP 145/82; PULSE 76; RESP 16; TEMP 36.6; O2SAT 99
[2022-09-09] MEDS: Allopurinol 100 MG Tablet PO (11:39)
[2022-09-09] MEDS: Ferrous Sulfate 325 MG Tablet PO ×2 (11:42→22:43)
[2022-09-09] MEDS: Ascorbic Acid 500 MG Tablet 1000 MG PO (11:42)
--- NOTE | 2022-09-09 14:46 | DS.PCM_ITS ---
Providers Date of Admission: 09/02/22 Primary Care Physician: Dr. Vlaeriano Beasley MD Consultations 09/02/22 16:11 Consult: Gastroenterology Routine Consulting Provider: Karla [facility] Reason for Consult: GI bleed, ABLA, Diarrheal illness, 12/2021 PCI on asa/p lavix EMERGENT Consult: No Notified: Yes Date Notified: 09/02/22 Time Notified: 14:45 Method of Notification: called 09/03/22 15:29 Consult: Cardiology Routine Consulting Provider: Lukas Cuevas Reason for Consult: nonstemi EMERGENT Consult: No Notified: Yes Date Notified: 09/03/22 Time Notified: 15:29 Method of Notification: Verbal Reason For Visit: GI BLEED, ABLA, BC, DIARRHEAL ILLNESS Diagnosis Discharge Diagnosis (1) NSTEMI (non-ST elevated myocardial infarction): Status: Acute Code(s): I21.4 - Non-ST elevation (NSTEMI) myocardial infarction (2) Bloody diarrhea: Status: Acute Code(s): R19.7 - Diarrhea, unspecified (3) Acute blood loss anemia: Status: Acute Code(s): D62 - Acute posthemorrhagic anemia Medications at Discharge Home Medications allopurinol 100 mg tablet 100 mg PO DAILY GOUT 03/25/22 atenolol 50 mg tablet 50 mg PO DAILY HEART 03/25/22 atorvastatin 80 mg tablet 80 mg PO DAILY CHOLESTEOL 03/25/22 clopidogrel 75 mg tablet 75 mg PO DAILY BLOOD THINNER 03/25/22 doxepin 25 mg capsule 25 mg PO QHS 03/25/22 aspirin 81 mg tablet,delayed release 81 mg PO DAILY HEALTH MAINTENANCE 09/02/22 ezetimibe 10 mg tablet 10 mg PO DAILY CHOLESTEROL 09/02/22 nitroglycerin 0.4 mg sublingual tablet 0.4 mg sublingual UD PRN Chest Pain 09/02/22 ofloxacin 0.3 % eye drops 1 drp EACH EYE 4X/DAY SURGERY 09/02/22 ascorbic acid (vitamin C) 500 mg tablet 1,000 mg PO BIDCM 30 days #120 tabs 08/24 02/12 ferrous sulfate 325 mg (65 mg iron) tablet (FeroSul) 325 mg PO 1200,1700 30 days #60 tabs 09/09/22 pantoprazole 40 mg tablet,delayed release 40 mg PO BID 30 days #60 tabs 09/09/22 Hospital Course Operations None Procedures 2-D Echocardiogram, Cardiac catheterization, Colonoscopy and EGD Summary of Care Provided Minutes Spent on Discharge: 45 Hospital Course: Per HPI: The patient is a 71 y/o M w/ PMHx: EtOH abuse (6 pack beer daily x 1 yr since passing of his ) with concurrent untreated Depression, HTN, HLD, CAD s/p PCI x 3 12/2021 of note, Gout who presents to the [facility] ED on 09/02/22 with history of increasing fatigue, malaise, generalized weakness and lightheadedness with recent onset starting Monday prior to presentation abdominal cramping and discomfort with loose bloody stools reportedly bloody in appearance with lightheadedness especially with activity, positional changes with no recent URI type symptoms nor any fevers or chills or nausea or emesis but given ongoing symptoms prompted ED evaluation. He notes having at least 7 watery bloody stools each day.? Patient does report that the abdominal cramping that occurs with a loose bloody stools are not necessarily painful and very short-lived.? In the ED lengthy discussion regarding his alcohol use and suspected underlying depression which she confirms with history of his passing approximately 1 year prior which is when he started to also drink heavily.? Son present in the room during conversations and did encourage his father to be honest.? Work-up in the ED included T96.9, heart rate 81, BP 130/109, respiratory rate 16, 100% on room air, orthostatics with heart rate variation 64-78, BP variation 126/75 to 109/7 5, CBC with WBC 16.4, hemoglobin 9.3, MCV 104.9, platelet 212 with left shift and lymphopenia, BMP with BUN/creatinine 28/1.61, glucose 137.? In the ED patient ministered 1 L normal saline as well as IV cipro and IV flagyl. From [employer] system last noted baseline labs 04/14/22 14.4, 44.2, macrocytic, 04/14/22 BUN/Cr 10/0.68. Hospital Course: 1. Rectal bleeding with acute on chronic anemia and hypotension/non-STEMI type II with a history of CAD status post stent/HTN/HLD?71-year-old male presented to the hospital with bloody diarrhea. He initially had an EGD and colonoscopy which demonstrated AVMs in his colon, his EGD demonstrated some esophagitis. He was started on a PPI and his antiplatelets were held however during his hospitalization he also developed chest pain and with an elevated troponin he had cardiac catheterization which demonstrated some mild Jaci in-stent stenosis but cardiology just recommended medical management that we are currently doing. Because of his non-STEMI at at [facility] insistence he was started on a heparin drip however this had led him to bleed which they understood was a risk. This caused to have a second colonoscopy to stop that bleeding. His hemoglobin is low but stable, he has had multiple iron infusions as well as blood transfusions while here. Because his hemoglobin is stable and he has not had any further bloody bowel movements, will plan to discharge today on iron replacement with vitamin C to aid absorption since he will also be discharged on Protonix twice daily. We will restart his Plavix in a week and then his aspirin can be restarted at a later date pending evaluation by his primary care as well as ca rdiology and GI. I discussed with him the plan for discharge today he expressed understanding of the risk and benefits of going home and would like to go home today. 2. Alcohol abuse is a chronic issue which complicates his care. His home medications were continued where appropriate Physical Exam Narrative General: Alert, Oriented x3, Cooperative, No apparent distress HEENT: Atraumatic, PERRLA, EOMI, Normocephalic Oral: Moist Mucosa Neck: Supple, No JVD Lungs: Diminished, Normal air movement, No rhonchi, No wheeze, No rales Cardiovascular: Regular rate, Regular Rhythm, Normal S1, Normal S2, No murmurs Abdomen: Soft, Non Tender, Non-Distended, No Hepato-splenomegaly Extremities: No edema, Capillary Refill Less than 3 Seconds Skin: No rashes, No breakdown Musculoskeletal: No Tenderness to Palpation of Joints or Extremities Neurological: Cranial nerves II-XII grossly intact, Motor Exam 5/5 strength throughout, Sensory exam intact to light touch and pain Psych/Mental Status: Normal Affect, Appropriate Weight / BMI Weight Weight: 199 lb 8.293 oz Body Mass Index (BMI) 26.9 ABG / Lab / Microbiology Data Result Diagrams: 09/09/22 05:30 09/08/22 06:30 Laboratory: Laboratory Results - last 24 hr 09/09/22 05:30: WBC 5.5, RBC 2.34 L, Hgb 7.6 L, Hct 24.4 L, MCV 104.3 H, MCH 32.5 H, MCHC 31.1 L, RDW Std Deviation 67.8 H, RDW Coeff of Dorie 17.7 H, Plt Count 212, MPV 9.9, Immature Gran % (Auto) 0.400, Neut % (Auto) 67.3, Lymph % (Auto) 10.0 L, [place] % (Auto) 13.8 H, Eos % (Auto) 8.0 H, Baso % (Auto) 0.5, Absolute Neuts (auto) 3.7, Absolute Lymphs (auto) 0.55 L, Nucleated RBC % 0, Differential Comment SCANNED, Anisocytosis 1+, Macrocytosis 1+ Microbiology: Microbiology 09/02/22 22:40 Stool Stool Lactoferrin - Final 09/02/22 22:40 Stool Enteric Bacteriology - Final 09/02/22 22:40 Stool C. difficile DNA Amplification - Final D/C Instructions Discharge Diet: Low fat / Low cholesterol Call your doctor if you observe: Fever of 101 or Higher, Shortness of breath, Dizziness, Fainting spells, Swelling in the ankles, Chest pain and Increased palpitations (irregular heartbeat) Meaningful Use Info Meaningful Use Diagnoses (Choose all that apply): None applicable Discharge Plan Admission Admit Date/Time: 09/02/22 14:43 Attending Provider: Obdulio Crespo Primary Care Provider: Valeriano Beasley Consulting Providers: Jael Ramos ; Lukas Cuevas ; Melissa Corbin Instructions Additional Instructions / Restrictions: Follow-up with your PCP in 3 to 5 days to obtain outpatient follow-up for your hemoglobin Discharge Orders/Prescriptions Prescriptions: New ascorbic acid (vitamin C) 500 mg Tablet 1,000 mg PO BIDCM 30 Days Qty: 120 0RF Rx Instructions: Take with iron tablets ferrous sulfate [FeroSul] 325 mg (65 mg iron) Tablet 325 mg PO 1200,1700 30 Days Qty: 60 0RF pantoprazole 40 mg Tablet,Delayed Release (Dr/Ec) 40 mg PO BID 30 Days Qty: 60 0RF Continued atorvastatin 80 mg Tablet 80 mg PO DAILY doxepin 25 mg Capsule 25 mg PO QHS allopurinol 100 mg Tablet 100 mg PO DAILY atenolol 50 mg Tablet 50 mg PO DAILY ofloxacin 0.3 % drops 1 drp EACH EYE 4X/DAY Label Comments: Instill 1 drop into right eye four times a day Use QID in operative eye 3 days prior to surgery and QID after surgery Rx Instructions: Instill 1 drop into right eye four times a day Use QID in operative eye 3 days prior to surgery and QID after surgery nitroglycerin 0.4 mg tablet, sublingual 0.4 mg sublingual UD PRN (Reason: Chest Pain) Label Comments: PLACE 1 TABLET UNDER TONGUE EVERY 5 MINS, UP TO 3 DOSES NEEDED FOR CHEST PAIN Rx Instructions: PLACE 1 TABLET UNDER TONGUE EVERY 5 MINS, UP TO 3 DOSES NEEDED FOR CHEST PAIN ezetimibe 10 mg tablet 10 mg PO DAILY Held clopidogrel 75 mg Tablet 75 mg PO DAILY Hold Instructions: Resume on 09/16/22. aspirin 81 mg tablet,delayed release (DR/EC) 81 mg PO DAILY Hold Instructions: Resume on 10/01/22. Hold until your PCP/Rate Marker decide to restart Label Comments: TAKE 1 TABLET BY MOUTH EVERY DAY Referrals / Follow Up: Lukas Cuevas MD [Med Staff - Active Staff] - Within 3 Months Valeriano Beasley MD [Primary Care Provider] - Within 1 Week Ahmet Chacon DO [Med Staff - Active Staff] - Within 1 Month Disposition Disposition (needs filled in before D/C Order can be placed): Home, Self Care Charges/Coding Visit Charges Inpatient E&M: 28083 Disch Hosp >30min
[2022-09-09 15:29] VITALS: BP 145/80; PULSE 76; RESP 15; TEMP 36.7; O2SAT 100
--- NOTE | 2022-09-09 19:41 | VDLE_ITS ---
Reason For Study: Swelling RIGHT LEFT GSV is normal. CFV is compressible, spontaneous, phasic, CFV is compressible, spontaneous, phasic, competent, and demonstrates normal competent and demonstrates normal augmentation. augmentation. FV is compressible, spontaneous, phasic, competent and demonstrates normal augmentation. POP V is compressible, spontaneous, phasic, competent and demonstrates normal augmentation. T/P Trunk is compressible. PTV is compressible. RT PerV is compressible. Procedure This is a venous duplex using B-mode, color flow and spectral Doppler. Exam performed portable in patient room. A preliminary report was called and/or faxed to [facility]. VL/Venous Duplex US, Unilateral Interpretation Summary There is no evidence of right lower extremity deep vein thrombosis. Right great saphenous vein appears patent and compressible segmentally. Normal flow patterns left common f emoral vein Ordering Physician: Rizwana Hagen Referring Physician: Valeriano Beasley Performed By: Mallory Hernandez RVT
--- NOTE | 2022-09-09 19:41 | PCM.HOSP.N ---
Hospitalist Note Received call about swollen right ankle/foot. Went to evaluate and mid calf through foot and is more swollen than left side without any erythema or signs of infection. Advised to elevate legs, ordered D-dimer and duplex. Very poor tach with elation candidate given GI bleed but will need evaluated because of significant clot burden will need to consider alternative measures
[2022-09-09 21:57] LABS: D-Dimer Quantitative (DVT/PE) 3.21 FEU/ug/m (0.27-0.49)
[2022-09-09] MEDS: Doxepin Hcl 25 MG Capsule PO (22:44)
[2022-09-09] MEDS: Atorvastatin Calcium 80 MG Tablet PO (22:44)
[2022-09-10 04:39] VITALS: BP 103/62; PULSE 64; RESP 16; TEMP 36.8; O2SAT 97
[2022-09-10 10:00] VITALS: BP 141/85; PULSE 81; RESP 18; TEMP 37.2; O2SAT 95
[2022-09-10] MEDS: Allopurinol 100 MG Tablet PO (10:18)
[2022-09-10] MEDS: Pantoprazole Sodium 40 MG Tablet PO (10:18)
[2022-09-10] MEDS: Folic Acid 1 MG Tablet PO (10:18)
[2022-09-10] MEDS: Thiamine Hydrochloride 100 MG Tablet PO (10:18)
[2022-09-10 11:00] VITALS: BP 141/85; PULSE 81; RESP 18; TEMP 37.2; O2SAT 95
[2022-09-10] MEDS: Ascorbic Acid 500 MG Tablet 1000 MG PO (12:45)
[2022-09-10] MEDS: Ferrous Sulfate 325 MG Tablet PO (12:45)
--- NOTE | 2022-09-10 13:28 | PN.HOSP_ITS ---
Subjective Subjective This progress note is for 09/09/2022, the discharge summary was done on that day but then he did not go home Doing well, no issues overnight Objective Data Objective Data Vital Signs: Vital Signs Temp Pulse Resp BP Pulse Ox O2 Del Method O2 Flow Rate 98.9 F 81 18 141/85 H 95 Room Air 2 09/10/22 11:00 09/10/22 11:00 09/10/22 11:00 09/10/22 11:00 09/10/22 11:00 09/10/22 11:00 09/04/22 17:45 Oxygen Flow Rate (L/min) 2 Oxygen Delivery Method Room Air Weight: 199 lb 15.348 oz Body Mass Index (BMI) 26.9 Intake & Output: Intake and Output for Last 24 Hours 09/09/22 09/10/22 09/11/22 03:59 03:59 03:59 Intake Total 2500 / 2500 560 / 560 Output Total 300 / 300 Balance 2500 / 2500 260 / 260 Lab / Micro Data Result Diagrams: 09/09/22 05:30 09/08/22 06:30 Labs: Laboratory Results - last 24 hr 09/09/22 20:50: D-Dimer Quant (PE/DVT) 3.21 H* Micro: Microbiology 09/02/22 22:40 Stool Stool Lactoferrin - Final 09/02/22 22:40 Stool Enteric Bacteriology - Final 09/02/22 22:40 Stool C. difficile DNA Amplification - Final Physical Exam Narrative General: Alert, Oriented x3, Cooperative, No apparent distress HEENT: Atraumatic, PERRLA, EOMI, Normocephalic Oral: Moist Mucosa Neck: Supple, No JVD Lungs: Diminished, Normal air movement, No rhonchi, No wheeze, No rales Cardiovascular: Regular rate, Regular Rhythm, Normal S1, Normal S2, No murmurs Abdomen: Soft, Non Tender, Non-Distended, No Hepato-splenomegaly Extremities: No edema, Capillary Refill Less than 3 Seconds Skin: No rashes, No breakdown Musculoskeletal: No Tenderness to Palpation of Joints or Extremities Neurological: Cranial nerves II-XII grossly intact, Motor Exam 5/5 strength throughout, Sensory exam intact to light touch and pain Psych/Mental Status: Normal Affect, Appropriate Assessment & Plan Assessment/Plan (1) NSTEMI (non-ST elevated myocardial infarction): (2) Bloody diarrhea: (3) Acute blood loss anemia: PLAN: Plan #Rectal bleeding with acute on chronic anemia and hypotension/non-STEMI type II with a history of CAD status post stents/HTN/HLD * admitted with a complaints of rectal bleeding. * had colonoscopy which showed diverticulosis in the recto sigmoid colon, sigmoid, descending colon and at the splenic flexure and transverse colon; 2 bleeding colonic angiodysplastic lesions which were treated argon plasma coagulation. * GI on board * Will give him another dose of IV iron and repeat hemoglobin in the morning * Will start him on a cardiac diet as it does not appear that he is bleeding anymore and see how he tolerates * PT and OT evaluated and did not feel as needed SNF * Transfused 2 units of PRBCs * Heart cath demonstrates coronary artery disease, with previous stents showing mild in-stent stenoses within the LAD and then a totally occluded left circumflex artery and a diffuse disease of the right coronary artery * on statin, atenolol. Aspirin and plavix on hold. * 2D echo showed EF of 50% with mild segmental systolic dysfunction. Records requested from [facility] * Appreciate cardiology's assistance, will restart Plavix by itself in about a week #Acute alcohol withdrawal * patient has a history of heavy alcohol use, and drinks 4-6 drinks daily. * alcohol withdrawal protocol with ativan. * on folic acid, thiamine and multivitamin. DVT: SCDs Charges/Coding Visit Charges Inpatient E&M: 34107 Subs Hosp L2
== END 2022-09-10 14:38 | disposition home or self-care (01) | DRG 377 ==
LOC: ED 14:35 → MS3 15:28 → PCU 09-04 15:11
PROVIDERS: Anesthesiology; Internal Medicine; Internal Medicine Gastroenterology; Student in an Organized Health Care Education/Training Program; Admitting Provider Family Medicine; Emergency Provider Emergency Medicine; PCP Family Medicine; Visit Provider Family Medicine
PROC: 0DJD8ZZ Inspection of Lower Intestinal Tract, Via Natural or Artificial Opening Endoscopic (ICD-10-PCS; CPT 45378; principal; 2022-09-03 08:00)
DX: K55.21 Angiodysplasia of colon with hemorrhage (principal); I21.A1 Myocardial infarction type 2; D62 Acute posthemorrhagic anemia; N17.9 Acute kidney failure, unspecified; F10.139 Alcohol abuse with withdrawal, unspecified; I95.1 Orthostatic hypotension; I25.10 Atherosclerotic heart disease of native coronary artery without angina pectoris; D12.0 Benign neoplasm of cecum; E78.5 Hyperlipidemia, unspecified; K64.1 Second degree hemorrhoids; I10 Essential (primary) hypertension; K21.00 Gastro-esophageal reflux disease with esophagitis, without bleeding; K44.9 Diaphragmatic hernia without obstruction or gangrene; I25.2 Old myocardial infarction; M10.9 Gout, unspecified; F41.9 Anxiety disorder, unspecified; F43.21 Adjustment disorder with depressed mood; D12.5 Benign neoplasm of sigmoid colon; K57.31 Diverticulosis of large intestine without perforation or abscess with bleeding; E66.3 Overweight; R60.0 Localized edema; R73.9 Hyperglycemia, unspecified; Y90.9 Presence of alcohol in blood, level not specified; Z68.26 Body mass index [BMI] 26.0-26.9, adult; Z95.5 Presence of coronary angioplasty implant and graft; Z79.02 Long term (current) use of antithrombotics/antiplatelets; Z79.899 Other long term (current) drug therapy; Z87.891 Personal history of nicotine dependence
CPT/HCPCS: 36415; 74177; 80048; 80053; 80076; 83036; 83630; 83735; 84100; 84145; 84484; 85014; 85018; 85025; 85027; 85379; 85610; 85730; 86850; 86900; 86901; 86920; 86922; 87493; 87506; 88305; 93005; 93306; 93458; 93971; 94668; 97162; 97166; 99152; 99153; 99285; J7030; J7040; J7050; P9016; Q9957; Q9967; A4216; A4648; C1769; C1894; J0744; J2916; P9017

== ENCOUNTER → 2022-12-09 | Outpatient (CLI) | payer MEDICARE, SELFPAY ==
[2022-10-19 13:35] VITALS: BMI 28.3
[2022-12-09 12:08] LABS: Absolute Lymphocyte Count 0.49 X10^3/uL (0.83-4.51); Absolute Neutrophil Count 4.9 X10^3/uL (2.0-7.7); Basophil# 0.06 X10^3/uL; Basophil% 0.9 % (0-1); Eosinophil# 0.51 X10^3/uL; Eosinophils% 7.6 % (0-5); Hematocrit 46.7 % (40-54); Lymphocyte # 0.49 X10^3/ul (0.83-4.51); Lymphocyte % 7.3 % (19-41); Mean Corp Hgb Conc 32.1 g/dL (32-36); Mean Corpuscular Hgb 31.5 pg (27.0-32.0); Mean Corpuscular Volume 98.1 fL (80-94); Mean Platelet Vol. 9.5 fl (6.2-12.0); Monocyte# 0.76 X10^3/uL; Monocyte% 11.4 % (0-10); NRBC Flagged by Analyzer 0 % (0-5); Neutrophil # 4.85 X10^3/uL (2.7-7.7); Neutrophil % 72.5 % (47-70); POSITIVE DIFFERENTIAL YES; Platelet Count 205 K/mm3 (150-450); RBC Distribution Width CV 15.4 % (11.6-14.6); RBC Distribution Width SD 55.2 fl (35.1-43.9); Red Blood Count 4.76 M/mm3 (4.6-6.2); White Blood Count 6.7 K/mm3 (4.4-11.0)
[2022-12-09 12:14] LABS: Differential Indicated SCAN CRITERIA MET
[2022-12-09 12:34] LABS: Ferritin 64 ng/mL (26-388); Iron 133 ug/dL (65-175); Iron Binding Capacity,Total 332 ug/dL (250-450); PERCENT IRON SATURATION 40.1 % (15.0-55.0)
== END | disposition home or self-care (01) ==
LOC: LAB 11:44
PROVIDERS: PCP Family Medicine; Referring Provider Nurse Practitioner Adult Health; Visit Provider Nurse Practitioner Adult Health
DX: D72.829 Elevated white blood cell count, unspecified (principal); D62 Acute posthemorrhagic anemia
CPT/HCPCS: 36415; 82728; 83540; 83550; 85025

== ENCOUNTER → 2023-05-25 | Outpatient (CLI) | payer MEDICARE, SELFPAY ==
[2022-10-19 13:35] VITALS: BMI 28.3
--- NOTE | 2023-05-25 10:59 | NEURO_ITS ---
NCS and/or EMG Patient Report Ordering Doctor: Valeriano Beasley DATE OF SERVICE: 05/25/23 Clinical Summary: 72 year old male presenting with complaints of squishy sensation and numbness in his feet. This EMG/NCS was performed to evaluate for peripheral polyneuropathy. Nerve Conduction Studies Summary: The sural SNAP distal latencies were prolonged bilaterally. The distal peroneal motor conduction velocities were mildly reduced bilaterally. The right tibial F- wave onset latency was mildly prolonged. Otherwise, nerve conduction studies of the lower extremities were within normal ranges. Needle Examination Summary: There was a higher proportion of motor unit action potentials with reduced recruitment, increased amplitude, increased duration, and polyphasia in the right L5 myotome. Impression: There is electrodiagnostic evidence of the following - 1) Chronic, right L5 radiculopathy There is no definite electrodiagnostic evidence of a large-fiber peripheral polyneuropathy. Multi Select Codes Neurology Neurology Interp Codes: 79680-58 Musc test done w/n test comp (interp) (2) and 56732-26 Nrv cndj test 7-8 studies (interp)
== END | disposition home or self-care (01) ==
LOC: PSN 08:25
PROVIDERS: PCP Family Medicine; Referring Provider Family Medicine; Visit Provider Family Medicine
DX: R20.0 Anesthesia of skin (principal); R20.2 Paresthesia of skin
CPT/HCPCS: 95886; 95910

== ENCOUNTER → 2023-09-05 | Outpatient (CLI) | payer MEDICARE, SELFPAY ==
[2023-08-23 15:18] VITALS: BMI 28.3
--- OUTSIDE RECORDS SUMMARY | 2023-09-05 11:56 | XMS RPT_ITS | CCD ---
Author Name Unknown Address [address] [facility] [address] [place] [address] Organization [facility] Care Team Providers Care Dobie Man Name Role Phone VALERIANO CHOE MD Primary Care Physician [phone] Valeriano Choe MD Primary Care Provider Valeriano Choe MD Primary Care Provider Valeriano Choe MD Primary Care Provider TESSA GUZMAN MD Attending Unavailable DAIJA LUNA, VALERIANO Stanford Primary Care Unavailable TESSA GUZMAN MD Attending Unavailable VALERIANO CHOE MD Primary Care Unavailable PHYSICIAN, NONE Admitting Unavailable TOM NASH MD, DR GERBER Attending Unav VALERIANO Mcnair MD Primary Care Unavailable VALERIANO CHOE Primary Care Unavailable SUZANNA DAWSON Referring Unavailable DAWIT CHOEREY A Primary Care Unavailable SUZANNA DAWSON Referring Unavailable VALERIANO CHOE A Primary Care Unavailable VALERIANO CHOE Attending Unavailable SUZANNA DAWSON Referring Unavailable VALERIANO CHOE Primary Care Unavailable VALERIANO CHOE Attending Unavailable DAIJA, VALERIANO A Primary Care Unavailable DAIJA VALERIANO A Referring Unavailable DAIJA, VALERIANO A Primary Care Unavailable DAIJA, VALERIANO A Referring Unavailable SUZANNA DAWSON Attending Unavailable DAWIT CHOEREY A Primary Care Unavailable SUZANNA DAWSON Attending Unavailable VALERIANO CHOE A Primary Care Unavailable VALERIANO CHOE A Referring Unavailable VALERAINO CHOE Attending Unavailable DAWIT CHOEREY A Primary Care Unavailable DAIJAVALERIANO MAHMOOD A Referring Unavailable DAIJAVALERIANO MAHMOOD A Referring Unavailable DAIJA, VALERIANO A Primary Care Unavailable VALERIANO CHOE A Referring Unavailable DAIJA, VALERIANO A Primary Care Unavailable DAIJAVALERIANO MAHMOOD Referring Unavailable DAIJA, VALERIANO A Primary Care Unavailable DAIJA, VALERIANO A Attending Unavailable VALERIANO CHOE Primary Care Unavailable VALERIANO CHOE Referring Unavailable VALERIANO CHOE Primary Care Unavailable VALERIANO CHOE Referring Unavailable VALERIANO CHOE Primary Care Unavailable Allergies Allergy Classification Reported Allergen(s) Allergy Type Date of Onset Reaction(s) Facility (20 sources) hydroCHLOROthiazi de; Translations: [hydrochlorothiaz aliyah] Drug Allergy 03-04-2008 Unknown [facility] Medications Current Medications Medication Drug Class(es) Dates Sig (Normalized) Sig (Original) Amlodipine (2 sources) Dihydropyridine Calcium Channel Iban Start: 11-29-2021 amLODIPine Oral, qDay, 0 Refill(s) Start Date: 11/29/21 Status: Ordered Completed/Discontinued Medications Medication Drug Class(es) Dates Sig (Normalized) Sig (Original) allopurinol 100 mg oral tablet (20 sources) Xanthine Oxidase Inhibitor Start: 09-27-2021 End: 05-18-2023 take 1 tablet by mouth once daily allopurinol (ZYLOPRIM) 100 mg tablet TAKE 1 TABLET BY MOUTH ONCE DAILY. FOR GOUT. 90 tablet 1 05/18/2023 Active Problems Active Problems Problem Classification Problem Date Documented Da te Episodic/Chronic Acute myocardial infarction (19 [address]) ST elevation (STEMI) myocardial infarction of unspecified site; Translations: [Myocardial infarction] Onset: 11-29-2021 Chronic Adjustment disorders (20 sources) Reactive depression (situational); Translations: [Adjustment disorder with depressed mood] Onset: 09-14-2022 Chronic Alcohol-related disorders (20 sources) Alcohol abuse; Translations: [Alcohol abuse, uncomplicated] Onset: 09-14-2022 Chronic Anxiety disorders (20 sources) Anxiety; Translations: [Anxiety disorder, unspecified] Onset: 12-08-2014 03-15-2021 Chronic Cardiac dysrhythmias (3 sources) Unspecified atrial fibrillation; Translations: [Junctional escape beats] Onset: 11-29-2021 Chronic Coronary atherosclerosis and other heart disease (20 sources) Coronary atherosclerosis; Translations: [Atherosclerotic heart disease of false pass coronary artery without angina pectoris] Onset: 12-06-2021 Chronic Deficiency and other anemia (1 source) Anemia; Translations: [Anemia, unspecified] Episodic Disorders of lipid metabolism (20 sources) Hyperlipidemia; Translations: [Hyperlipidemia, unspecified] Onset: 01-13-2011 Chronic Diverticulosis and diverticulitis (20 sources) Diverticular disease; Translations: [Diverticulosis of intestine, part unspecified, without perforation or abscess without bleeding] Onset: 09-05-2022 Chronic Essential hypertension (20 sources) Essential hypertension; Translations: [Essential (primary) hypertension] Onset: 03-04-2008 Chronic Gout and other crystal arthropathies (20 sources) Gout, unspecified; Translations: [Gout] Onset: 03-15-2021 Chronic Immunizations and screening for infectious disease (1 source) Vaccination needed; Translations: [Encounter for immunization] 04-20-2023 Episodic Nonspecific chest pain (1 source) Chest pain; Translations: [Chest pain, unspecified] Episodic Other diseases of kidney and ureters (2 sources) Disorder of kidney and/or ureter; Translations: [Other specified disorders of kidney and ureter] 08-21-2023 Chronic Other diseases of kidney and ureters (1 source) Other specified disorders of kidney and ureter; Translations: [Other specified disorders of kidney and ureter] Onset: 08-28-2023 Chronic Other diseases of kidney and ureters (7 sources) Kidney lesion; Translations: [Disorder of kidney and ureter, unspecified] Onset: 08-21-2023 08-21-2023 Episodic Other diseases of kidney and ureters (1 source) Disorder of kidney and ureter, unspecified; Translations: [Kidney lesion] Onset: 08-21-2023 Episodic Other ear and sense organ disorders (1 source) Excessive cerumen in ear canal ; Translations: [Impacted cerumen, right ear] 04-20-2023 Episodic Other nervous system disorders (1 source) Paresthesia of foot ; Translations: [Anesthesia of skin] 04-20-2023 Episodic Dionne-; endo-; and myocarditis; cardiomyopathy (except that caused by tuberculosis or sexually transmitted disease) (7 sources) Heart valve disorder; Translations: [Endocarditis, valve unspecified] Onset: 05-18-2023 05-18-2023 Chronic Spondylosis; intervertebral disc disorders; other back problems (7 sources) Lumbosacral radiculopathy; Translations: [Radiculopathy, lumbosacral region] Onset: 07-10-2023 07-10-2023 Episodic Past or Other Problems Problem Classification Problem Date Documented Da te Episodic/Chronic Administrative/social admission (20 sources) Advance directive discussed with patient; Translations: [Other specified counseling] Onset: 2 Episodic Deficiency and other anemia (1 source) Anemia, unspecified; Translations: [Anemia, unspecified type] Onset: 3 Episodic Gastrointestinal hemorrhage (3 sources) Lower gastrointestinal hemorrhage; Translations: [Gastrointestinal hemorrhage, unspecified] Onset: 3 Episodic Heart valve disorders (20 sources) Systolic murmur; Translations: [Cardiac murmur, unspecified] Onset: 9 03-15-2021 Episodic Nutritional deficiencies (8 sources) Serum vitamin B12 low; Translations: [Deficiency of other specified B group vitamins] Onset: 3 05-18-2023 Episodic Other aftercare (20 sources) Patient encounter status; Translations: [Other detention (current) drug therapy] Onset: 1 03-15-2021 Episodic Other connective tissue disease (9 sources) Atrophy of muscle of right shoulder; Translations: [Muscle wasting and atrophy, not elsewhere classified, right shoulder] Onset: 3 04-20-2023 Episodic Other connective tissue disease (9 sources) Muscle atrophy; Translations: [Muscle wasting and atrophy, not elsewhere classified, other site] Onset: 3 04-20-2023 Episodic Other gastrointestinal disorders (19 sources) Arteriovenous malformation of large intestine; Translations: [Angiodysplasia of colon without hemorrhage] Onset: 3 Episodic Other inflammatory condition of skin (20 sources) Prurigo nodularis; 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] Onset: 1 03-15-2021 Episodic Other liver diseases (20 sources) Alkaline phosphatase raised; Translations: [Abnormal levels of other serum enzymes] Onset: 8 03-15-2021 Episodic Other male genital disorders (20 sources) Disorder of prostate; Translations: [Disorder of prostate, unspecified] Onset: 1 03-15-2021 Episodic Other nervous system disorders (9 sources) Impairment of balance; Translations: [Other abnormalities of gait and mobility] Onset: 3 04-20-2023 Episodic Other nervous system disorders (1 source) Other abnormalities of gait and mobility; Translations: [Balance problems] Onset: 3 Episodic Other nervous system disorders (1 source) Anesthesia of skin; Translations: [Numbness and tingling of both feet] Onset: 3 Episodic Other nervous system disorders (1 source) Paresthesia of skin; Translations: [Numbness and tingling of both feet] Onset: 3 Episodic Other screening for suspected conditions (not mental disorders or infectious disease) (20 sources) Decreased vitamin D; Translations: [Other specified abnormal findings of blood chemistry] Onset: 1 03-15-2021 Episodic Residual codes; unclassified (20 sources) Active living will ; Translations: [Other specified health status] Onset: 2 Episodic Results Test Name Value Interpretation Reference Range Facil ity Vital Signs Date Time Vital Sign Value Performing Clinician Facility 05-18-2023 10:39-0400 Body weight 91.76 kg Valeriano Choe MD Work Phone: [facility] 05-18-2023 10:39-0400 Diastolic blood pressure 80 mm[Hg] Valeriano Choe MD Work Phone: [facility] 05-18-2023 10:39-0400 Heart rate 58 /min Valeriano Choe MD Work Phone: [facility] 05-18-2023 10:39-0400 SaO2% (BldA) [Mass fraction] 96 % Valeriano Choe MD Work Phone: [facility] 05-18-2023 10:39-0400 Systolic blood pressure 122 mm[Hg] Valeriano Choe MD Work Phone: [facility] 04-20-2023 12:38-0400 Diastolic blood pressure 81 mm[Hg] Valeriano Choe MD Work Phone: [facility] 04-20-2023 12:38-0400 Heart rate 53 /min Valeriano Choe MD Work Phone: [facility] 04-20-2023 12:38-0400 Systolic blood pressure 152 mm[Hg] Valeriano Choe MD Work Phone: [facility] 04-20-2023 [id number] Body height 174.6 cm Valeriano Choe MD Work Phone: [facility] 04-20-2023 11:22-0400 Body weight 91.17 kg Valeriano Choe MD Work Phone: [facility] 04-20-2023 11:22-0400 Respiratory rate 16 /min Valeriano Choe MD Work Phone: [facility] 10-12-2022 10:09-0400 Body temperature 97.2 [degF] Suzanna Dawson PA-C Work Phone: [facility] 10-12-2022 10:09-0400 Body weight 85.73 kg Suzanna Dawson PA-C Work Phone: [facility] 10-12-2022 10:09-0400 Diastolic blood pressure 80 mm[Hg] Suzanna Dawson PA-C Work Phone: [facility] 10-12-2022 10:09-0400 Heart rate 56 /min Suzanna Dawson PA-C Work Phone: [facility] 10-12-2022 10:09-0400 Respiratory rate 16 /min Suzanna Dawson PA-C Work Phone: [facility] 10-12-2022 10:09-0400 Systolic blood pressure 136 mm[Hg] Suzanna Dawson PA-C Work Phone: [facility] 09-14-2022 14:41-0500 Body weight 88.91 kg Valeriano Choe MD Work Phone: [facility] 09-14-2022 14:41-0500 Diastolic blood pressure 78 mm[Hg] Valeriano Choe MD Work Phone: [facility] 09-14-2022 14:41-0500 Heart rate 58 /min Valeriano Choe MD Work Phone: [facility] 09-14-2022 14:41-0500 Systolic blood pressure 118 mm[Hg] Valeriano Choe MD Work Phone: [facility] 04-18-2022 15:36-0400 Diastolic blood pressure 105 mm[Hg] Valeriano Choe MD Work Phone: [facility] 04-18-2022 15:36-0400 Systolic blood pressure 175 mm[Hg] Valeriano Choe MD Work Phone: [facility] 04-18-2022 14:39-0400 Body height 174 cm Valeriano Choe MD Work Phone: [facility] 04-18-2022 14:39-0400 Body weight 90.36 kg Valeriano Choe MD Work Phone: [facility] 04-18-2022 14:39-0400 Heart rate 66 /min Valeriano Choe MD Work Phone: [facility] 04-18-2022 14:39-0400 Respiratory rate 16 /min Valeriano Choe MD Work Phone: [facility] 01-27-2022 14:00-0400 Diastolic blood pressure 80 mm[Hg] DR FRANKLIN NASH MD [address] 01-27-2022 14:00-0400 Heart rate 64 /min DR FRANKLIN NASH MD [facility] 01-27-2022 14:00-0400 Mean blood pressure 97 mm[Hg] DR FRANKLIN NASH MD [facility] 01-27-2022 14:00-0400 Systolic blood pressure 130 mm[Hg] DR FRANKLIN NASH MD [address] 01-27-2022 13:15-0400 Diastolic blood pressure 72 mm[Hg] DR FRANKLIN NASH MD [facility] 01-27-2022 13:15-0400 Heart rate 65 /min DR FRANKLIN NASH MD [facility] 01-27-2022 13:15-0400 Mean blood pressure 90 mm[Hg] DR FRANKLIN NASH MD [address] [place] [address] 01-27-2022 13:15-0400 Systolic blood pressure 127 mm[Hg] DR FRANKLIN NASH MD [address] [place] [address] 01-27-2022 13:00-0400 Diastolic blood pressure 75 mm[Hg] DR FRANKLIN NASH MD [address] [place] [address] 01-27-2022 13:00-0400 Heart rate 66 /min DR FRANKLIN NASH MD [address] [place] [address] 01-27-2022 13:00-0400 Mean blood pressure 92 mm[Hg] DR FRANKLIN NASH MD [address] [place] [address] 01-27-2022 12:08-0400 Reason For Taking VItal Signs DR FRANKLIN NASH MD [address] [place] [address] 01-27-2022 12:08-0400 Respiratory rate 18 /min DR FRANKLIN NASH MD [address] [place] [address] 01-27-2022 11:24-0400 Reason For Taking VItal Signs DR FRANKLIN NASH MD [address] [place] [address] 01-27-2022 11:24-0400 Respiratory rate 16 /min DR FRANKLIN NASH MD [address] [place] [address] 01-27-2022 06:11-0400 Body height 177.[address] FRANKLIN NASH MD [address] [place] [address] 01-27-2022 06:11-0400 Body temperature 97.34 [degF] DR FRANKLIN NASH MD [address] [place] [address] 01-27-2022 06:11-0400 Body weight 88.[address] FRANKLIN NASH MD [address] [place] [address] 01-27-2022 06:11-0400 Body weight 28.12 kg/m2 DR FRANKLIN NASH MD [address] [place] [address] 01-27-2022 06:11-0400 diastolic 85 mm[Hg] DR FRANKLIN NASH MD [address] [place] [address] 01-27-2022 06:11-0400 Heart rate 56 /min DR FRANKLIN NASH MD [address] [place] [address] 01-27-2022 06:11-0400 Respiratory rate 16 /min DR FRANKLIN NASH MD [address] [place] [address] 01-27-2022 06:11-0400 systolic 149 mm[Hg] DR FRANKLIN NASH MD [address] [place] [address] 12-01-2021 10:25-0400 Diastolic blood pressure 78 mm[Hg] CHRISTINE SNYDER MD [address] [place] [address] 12-01-2021 10:25-0400 Heart rate 85 /min CHRISTINE SNYDER MD [address] [place] [address] 12-01-2021 10:25-0400 Respiratory rate 20 /min CHRISTINE SNYDER MD [address] [place] [address] 12-01-2021 10:25-0400 Systolic blood pressure 142 mm[Hg] CHRISTINE SNYDER MD [address] [place] [address] 12-01-2021 10:18-0400 Heart rate 93 /min CHRISTINE SNYDER MD [address] [place] [address] 12-01-2021 08:01-0400 Heart rate 68 /min CHRISTINE SNYDER MD [address] [place] [address] 12-01-2021 06:26-0400 Body temperature 97.7 [degF] CHRISTINE SNYDER MD [facility] 12-01-2021 06:26-0400 Diastolic blood pressure 62 mm[Hg] CHRISTINE SNYDER MD [facility] 12-01-2021 06:26-0400 Reason For Taking VItal Signs CHRISTINE SNYDER MD [facility] 12-01-2021 06:26-0400 Respiratory rate 20 /min CHRISTINE SNYDER MD [facility] 12-01-2021 06:26-0400 Systolic blood pressure 130 mm[Hg] CHRISTINE SNYDER MD [facility] 12-01-2021 04:04-0400 Diastolic blood pressure 70 mm[Hg] CHRISTINE SNYDER MD [facility] 12-01-2021 04:04-0400 Mean blood pressure 89 mm[Hg] CHRISTINE SNYDER MD [facility] 12-01-2021 04:04-0400 Reason For Taking VItal Signs CHRISTINE SNYDER MD [facility] 12-01-2021 04:04-0400 Respiratory rate 20 /min CHRISTINE SNYDER MD [facility] 12-01-2021 04:04-0400 Systolic blood pressure 128 mm[Hg] CHRISTINE SNYDER MD [facility] 11-30-2021 22:06-0400 Body temperature 98.24 [degF] CHRISTINE SNYDER MD [facility] 11-30-2021 22:06-0400 Mean blood pressure 103 mm[Hg] CHRISTINE SNYDER MD [facility] 11-30-2021 22:06-0400 Reason For Taking VItal Signs CHRISTINE SNYDER MD [facility] 11-30-2021 19:22-0400 Diastolic Blood Pressure NBP 82 1 CHRISTINE SNYDER MD [facility] 11-30-2021 19:22-0400 Systolic Blood Pressure NBP 138 1 CHRISTINE SNYDER MD [facility] 11-30-2021 19:01-0400 Body temperature 97.7 [degF] CHRISTINE SNYDER MD [facility] 11-30-2021 19:01-0400 Mean blood pressure 95 mm[Hg] CHRISTINE SNYDER MD [facility] 11-30-2021 13:20-0400 SaO2% (BldA) [Mass fraction] 96.3 % CHRISTINE SNYDER MD [facility] 11-30-2021 11:33-0400 Heart rate 56 /min CHRISTINE SNYDER MD [facility] 11-30-2021 09:52-0400 Heart rate 64 /min CHRISTINE SNYDER MD [facility] 11-30-2021 07:29-0400 Heart rate 52 /min CHRISTINE SNYDER MD [facility] 11-30-2021 02:55-0400 Diastolic Blood Pressure NBP 72 1 CHRISTINE SNYDER MD [facility] 11-30-2021 02:55-0400 Mean blood pressure 85 mm[Hg] CHRISTINE SNYDER MD [facility] 11-30-2021 02:55-0400 Systolic Blood Pressure NBP 118 1 CHRISTINE SNYDER MD [address] [place] [address] 11-30-2021 02:22-0400 Diastolic Blood Pressure NBP 52 1 CHRISTINE SNYDER MD [facility] 11-30-2021 02:22-0400 Mean blood pressure 68 mm[Hg] CHRISTINE SNYDER MD [facility] 11-30-2021 02:22-0400 Systolic Blood Pressure NBP 104 1 CHRISTINE SNYDER MD [facility] 11-30-2021 00:05-0400 Mean blood pressure 85 mm[Hg] CHRISTINE SNYDER MD [facility] 11-29-2021 16:55-0400 Body height 177.8 cm CHRISTINE SNYDER MD [facility] 11-29-2021 16:55-0400 Body weight 94.5 kg CHRISTINE SNYDER MD [facility] 11-29-2021 16:55-0400 Body weight 29.89 kg/m2 CHRISTINE SNYDER MD [facility] 11-29-2021 15:00-0400 Diastolic blood pressure 141 mm[Hg] DONAVON ROSALES DO [facility] 11-29-2021 15:00-0400 Heart rate 59 /min DONAVON ROSALES DO [facility] 11-29-2021 15:00-0400 Respiratory rate 20 /min DONAVON ROSALES DO [facility] 11-29-2021 15:00-0400 Systolic blood pressure 155 mm[Hg] DONAVON ROSALES DO [facility] 11-29-2021 14:56-0400 Body weight 95.4 kg DONAVON ROSALES DO [facility] 11-29-2021 14:34-0400 Body temperature 98.6 [degF] DONAVON ROSALES DO [facility] 11-29-2021 14:34-0400 Body weight 95.4 kg DONAVON ROSALES DO [facility] 11-29-2021 14:34-0400 Diastolic blood pressure 97 mm[Hg] DOANVON ROSALES DO [facility] 11-29-2021 14:34-0400 Heart rate 40 /min DONAVON ROSALES DO [facility] 11-29-2021 14:34-0400 Respiratory rate 22 /min DONAVON ROSALES DO [facility] 11-29-2021 14:34-0400 Systolic blood pressure 138 mm[Hg] DONAVON ROSALES DO [facility] Encounters Encounter Date Encounter Type Care Provider Facility Start: 09-04-2023 Chart abstracting Valeriano lua MD Work Phone: [facility] Procedures Date Procedure Procedure Detail Performing Clinician Start: 04-20-2023 INFLUENZA VACCINE, P RSV FREE, AGE 65+ YR, HIGH DOSE, QUADRIVALENT (FLUZONE HIGH-DOSE) Valeriano Choe MD Work Phone: Start: 04-14-2023 Lipid 1996 panel - S rosana or Plasma Valeriano Choe MD Work Phone: Start: 12-13-2022 CBC W/DIFF/PLT ([facility]) [facility] Provider Start: 12-13-2022 FERRITIN BLD [facility] Provid er Start: 12-13-2022 IRON PANEL (OUTSIDE) [facility] Provider Start: 09-05-2022 Colonoscopy Valeriano lua MD Work Phone: Start: 01-27-[address] FRANKLIN NASH MD Start: 11-30-[address] AMADOU NASH MD Plan of Treatment Date Care Activity Detail Author Start: 04-14-2028 Lipid 1996 panel - S rosana or Plasma Lipid Screening [facility] Start: 04-14-2028 Lipid panel Lipid Screening [facility] Start: 10-06-2027 LIPID SCREEN LIPID SCREEN [facility] Start: 09-14-2027 LIPID SCREEN LIPID SCREEN [facility] Start: 04-13-2027 LIPID SCREEN LIPID SCREEN [facility] Start: 04-14-2026 Diabetes Screening Diabetes Screenin g [facility] Start: 03-24-2026 Colonoscopy COLONOSCOPY [facility] Start: 03-24-2026 COLORECTAL CANCER SCREENING COLORECTAL CANCER SCREENING [facility] Start: 03-15-2026 LIPID SCREEN LIPID SCREEN [facility] Start: 09-14-2025 DIABETES SCREEN DIABETES SCREEN [facility] Start: 09-05-2025 Colonoscopy COLONOSCOPY [facility] Start: 09-05-2025 COLORECTAL CANCER SCREENING COLORECTAL CANCER SCREENING [facility] Start: 09-05-2025 Screening for malign ant neoplasm of colon [facility] Start: 04-13-2025 DIABETES SCREEN DIABETES SCREEN [facility] Start: 07-10-2024 Annual PCP Team Analysis Consultant alfredo Disease Visit Annual PCP Team Chronic Disease Visit [facility] Start: 05-18-2024 Annual PCP Team Analysis Consultant alfredo Disease Visit Annual PCP Team Chronic Disease Visit [facility] Start: 04-20-2024 Annual PCP Team Analysis Consultant alfredo Disease Visit Annual PCP Team Chronic Disease Visit [facility] Start: 04-20-2024 Covid-19 Vaccine ( season) Covid-19 Vaccine ( season) [facility] Immunizations Immunization Date Immunization Notes Care Provider Jeff banegas 04-20-2023 influenza (HD-IIV4) vaccine, age 65+ yr, high dose, quadrivalent, PF (FLUZONE HIGH-DOSE) Valeriano Choe MD Work Phone: [facility] 04-20-2023 pneumococcal (PCV20) vaccine, 20 valent (PREVNAR 20) Valeriano Choe MD Work Phone: [facility] 04-20-2023 pneumococcal Conjuga te, unspecified formulation Valeriano Choe MD Work Phone: [facility] Work Phone: 08-12-2019 influenza, high dose seasonal, preservative-free Monserrat Soriano MA [facility] 08-01-2018 influenza, high dose seasonal, preservative-free Monserrat Soriano MA [facility] 08-01-2018 pneumococcal conjuga te vaccine, 13 valent Monserrat Soriano MA [facility] 01-07-2016 pneumococcal polysaccharide vaccine, 23 valent Monserrat Soriano MA [facility] 07-16-2013 influenza virus vacc ine, unspecified formulation Monserrat Soriano MA [facility] 07-12-2011 influenza virus vacc ine, unspecified formulation Monserrat Soriano MA [facility] 03-04-2008 tetanus toxoid, redu el diphtheria toxoid, and acellular pertussis vaccine, adsorbed Monserrat Soriano MA [facility] Work Phone: 06-02-2005 influenza virus vacc ine, unspecified formulation Monserrat Soriano MA [facility] Work Phone: Payers Date Payer Category Payer Medicare [id number] 2022 Medicare [id number] 2022 Private Health Insurance [id number] 2021 Medicare [employer] MEDICARE [employer] GOLD PLUS [id number] 2021-Present [id number] [place], [place] [id number] [facility] [id number] 2021 Medicare [id number] 1950 Unknown [id number] 1950 Unknown [id number] 1950 Unknown [id number] Social History Date Type Detail Facility Tobacco smoking status Never smoker [facility] Start: 1950 Sex Assigned At Male [facility] Start: 07-12-2011 End: 12-13-2021 Tobacco smoking status NHIS Never smoked tobacco [facility] Start: 03-17-2021 End: 07-10-2023 Alcohol intake Current drinker of alcohol (finding) [facility] Start: 1950 Sex Assigned At Not on file [facility] Start: 11-22-2021 End: 04-18-2022 Exposure to SARS-CoV-2 (event) Not sure [facility] Start: 12-05-2021 History SDOH Social Connections Phone [address] [facility] Start: 12-05-2021 History SDOH Social Connections Get Together [address] [facility] Start: 12-05-2021 History SDOH Social Connections Membership [address] [facility] Start: 12-05-2021 History SDOH Social Connections Meetings [address] [facility] Start: 12-05-2021 History SDOH Social Connections Living [address] [facility] Start: 07-12-2011 Tobacco use and exposure Smokeless tobacco non-user [facility] Start: 12-05-2021 End: 04-20-2023 History of Social function [facility] Start: 12-05-2021 End: 04-20-2023 Social connection and isolation panel [facility] Do you belong to any clubs or organizations such as mu-ism groups, unions, fraternal or athletic groups, or school groups? Yes [facility] Are you now , , , , never or living with a partner? [facility] How often to you hav e a drink containing alcohol? Patient refused [facility] How hard is it for y ou to pay for the very basics like food, housing, medical care, and heating Somewhat hard [facility] (I/We) worried arun er (my/our) food would run out before (I/we) got money to buy more. Never true [facility] In the past 12 month s, was there a time when you were not able to pay the mortgage or rent on time? No [facility] Start: 12-05-2021 Gender identity Identifies as male gender (finding) [facility] Start: 12-05-2021 Sexual orientation Heterosexual (finding) [facility] Functional Status Date Assessment Result Facility 01-27-2022 Functional Status Ambulating in [place], Ambulating in room [facility] 01-27-2022 Functional Status [facility] 01-27-2022 Functional Status [facility] kaitlin 01-27-2022 Functional Status Room check performed [facility] 12-01-2021 Functional Status [facility] 12-01-2021 Functional Status [facility] 12-01-2021 Functional Status [facility] 12-01-2021 Functional Status [facility] 12-01-2021 Functional Status [facility] 12-01-2021 Functional Status [facility] 11-30-2021 Functional Status [facility] 11-30-2021 Functional Status [facility] 11-30-2021 Functional Status [facility] 11-30-2021 Functional Status [facility] 11-30-2021 Functional Status [facility] 11-30-2021 Functional Status [facility] 11-29-2021 Functional Status [facility] 11-29-2021 Functional Status [facility] 11-29-2021 Functional Status [facility] Mental Status Date Assessment Result Facility 01-27-2022 Mental Status Orientation Oriented x [facility] 01-27-2022 [facility] 01-27-2022 [facility] 12-01-2021 [facility] 12-01-2021 [facility] 11-30-2021 [facility] Status [facility] 11-29-2021 Mental Status [facility] 11-29-2021 [facility] Clinical Notes 08-01-2018 to 09-04-2023 Kelsea Moe LPN - 09/04/2023 3:03 PM Lupillo Lozano LPN - 09/01/2023 12:21 PM Raquel Haider RT(R) - 08/28/2023 11:00 AM Neri Diaz MA - 08/25/2023 10:03 AM EST Note Date & Type Note Facility 09-04-2023 History of Presen t illness Narrative Scan on 09/02/2023 12:52 PM by ProviderBing PA-C: X-ray documented in this encounter [facility] 09-01-2023 Note HNO ID: [id number] Author: LUPILLO MOURA LPN Service: ? Author Type: LICENSED NURSE Type: Progress Notes Filed: 09/01/2023 12:27 Note Text: Scan on 09/01/2023 11:52 AM by Bing Salmeron PA-C: Consultation - Orthopedics [facility] 09-01-2023 History of Presen t illness Narrative Scan on 09/01/2023 11:52 AM by Bing Salmeron PA-C: Consultation - Orthopedics documented in this encounter [facility] 08-28-2023 Note HNO ID: [id number] Author: RAQUEL OVERTON, RT(R) Service: ? Author Type: Saw Grinder Type: Progress Notes Filed: 08/28/2023 15:13 Note Text: Radiology Service Progress Note DATE OF SERVICE: August 28, 2023 TIME: 3:13 PM PATIENT IDENTITY VERIFICATION COMPLETED USING TWO (2) STANDARD IDENTIFIERS: Name and Date of confirmed by patient verbally. FALL SCREENING: Has the patient had 2 falls in the last year or 1 fall with injury or currently using an Ambulatory Assistive Device (Walker, Cane, Wheelchair, Crutches, etc.)? No PATIENT GENDER DATA: Male PATIENT RELEVANT IMPLANT DATA REVIEWED: Yes PATIENT PRESENTS WITH AN IMPLANTABLE OR ATTACHED TOMBSTONE ERECTOR: No ALLERGIES: Reviewed and unchanged CONTRAST ALLERGY: NO. EXAM: CT -CONTRAST INDUCED NEPHROPATHY RISK FACTORS: Patient age > 60 years CREATININE: Creatinine Date Value Ref Range Status 08/28/2023 0.80 0.73 - 1.22 mg/dL Final 04/14/2023 0.73 0.73 - 1.22 mg/dL Final 09/14/2022 0.81 0.73 - 1.22 mg/dL Final Estimated Glomerular Filtration Rate Date Value Ref Range Status 08/28/2023 94 >=60 mL/min/1.73m? Final Comment: Estimated Glomerular Filtration Rate (eGFR) is calculated using the 2020 CKD-EPI creatinine equation. This equation utilizes serum creatinine, sex, and age as parameters. The creatinine assay has traceable calibration to isotope dilution-mass spectrometry. Refer to KDIGO guidelines for clinical interpretation. In patients with unstable renal function, e.g. those with acute kidney injury, the eGFR may not accurately reflect actual GFR. eGFR- Date Value Ref Range Status 03/15/2021 >60 Final P.O.C.T. RESULTS: POC done: Yes, See Lab Tab August 28, 2023 TREATMENT: N/A PERIPHERAL IV DATA: Ambulatory: A peripheral IV was started in the Left antecubital site with a Angio cath: 18 gauge. RADIOLOGY DEPARTMENT: CT; Exam(s) Completed: Kidney SIGNATURE: RT Tato(R) PATIENT NAME: Nazario Hutton DATE: August 28, 2023 TIME: 3:13 PM [facility] 08-28-2023 History of Presen t illness Narrative Radiology Service Progress Note DATE OF SERVICE: August 28, 2023 TIME: 3:13 PM PATIENT IDENTITY VERIFICATION COMPLETED USING TWO (2) STANDARD IDENTIFIERS: Name and Date of confirmed by patient verbally. FALL SCREENING: Has the patient had 2 falls in the last year or 1 fall with injury or currently using an Ambulatory Assistive Device (Walker, Cane, Wheelchair, Crutches, etc.)? No PATIENT GENDER DATA: Male PATIENT RELEVANT IMPLANT DATA REVIEWED: Yes PATIENT PRESENTS WITH AN IMPLANTABLE OR ATTACHED TOMBSTONE ERECTOR: No ALLERGIES: Reviewed and unchanged CONTRAST ALLERGY: NO. EXAM: CT -CONTRAST INDUCED NEPHROPATHY RISK FACTORS: Patient age > 60 years CREATININE: Creatinine Date Value Ref Range Status 08/28/2023 0.80 0.73 - 1.22 mg/dL Final 04/14/2023 0.73 0.73 - 1.22 mg/dL Final 09/14/2022 0.81 0.73 - 1.22 mg/dL Final Estimated Glomerular Filtration Rate Date Value Ref Range Status 08/28/2023 94 >=60 mL/min/1.73m Final Comment: Estimated Glomerular Filtration Rate (eGFR) is calculated using the 2020 CKD-EPI creatinine equation. This equation utilizes serum creatinine, sex, and age as parameters. The creatinine assay has traceable calibration to isotope dilution-mass spectrometry. Refer to KDIGO guidelines for clinical interpretation. In patients with unstable renal function, e.g. those with acute kidney injury, the eGFR may not accurately reflect actual GFR. eGFR- Date Value Ref Range Status 03/15/2021 >60 Final P.O.C.T. RESULTS: POC done: Yes, See Lab Tab August 28, 2023 TREATMENT: N/A PERIPHERAL IV DATA: Ambulatory: A peripheral IV was started in the Left antecubital site with a Angio cath: 18 gauge. RADIOLOGY DEPARTMENT: CT; Exam(s) Completed: Kidney SIGNATURE: RT Tato(Federico) PATIENT NAME: Nazario Hutton DATE: August 28, 2023 TIME: 3:13 PM documented in this encounter [facility] 08-25-2023 Note Patient Outreach (BENJAMIN TYLERAV) NAZARIO HUTTON ([id number]) 1950 M Date Time Provider Department 08/25/23 NERI DENNY During your visit today, we recorded the following information about you: Neri Denny MA 08/25/2023 3:43 PM Signed POPULATION HEALTH NAVIGATION OUTREACH Action/FYI HM Due: Medicare wellness 2023 (last - 04/20/23). PCP follow up currently scheduled for 10/19/23. Left voice mail for patient to call back. [employer] message sent. Patient Identified by Name and : NO Outreach Outcome/Action Unable to reach patient: Left message [employer] message sent Did you use a PCP flex slot to schedule this appointment? N/A Reason for Outreach Care Gap or Scheduling/Wellness visits Payer: Payor: [employer] MEDICARE / Plan: [employer] MEDICARE HMO / Product Type: HMO / Care Gap Reviewed:: Annual Wellness visit Reminder: Reminder note to check Health Maintenance for items below Health Maintenance items due: RSV Vaccine(1 - 1-dose 60+ series) Never done BP Controlled (<130/80) due on 03/15/2022 Advance Directive Discussion due on 07/24/2023 Navigation Signature: Neri Denny MA August 25, 2023 10:03 AM Allergies As of Date: 08/25/2023 Noted Allergy Reaction HCTZ (HYDROCHLOROTHIAZIDE) 03/04/2008 16 - Unknown Comments: rash Date Reviewed: 08/25/2023 Reviewed by: Raquel Overton, RT(R) - Fully Assessed Reason for Visit: Population Health Navigation Outreach [3910] Cmt: [facility] AW[facility] Prescriptions as of 08/25/2023 - ezetimibe (ZETIA) 10 mg tablet Take 1 tablet by mouth once daily. - allopurinol (ZYLOPRIM) 100 mg tablet TAKE 1 TABLET BY MOUTH ONCE DAILY. FOR GOUT. - sertraline (ZOLOFT) 100 mg tablet Take one tablet by mouth daily - losartan (COZAAR) 50 mg tablet Take 1 tablet by mouth once daily. - atorvastatin (LIPITOR) 80 mg tablet TAKE 1 TABLET BY MOUTH ONCE DAILY. FOR CHOLESTEROL. - aspirin, enteric coated (ASPIRIN, ENTERIC COATED) 81 mg EC tablet Take 1 tablet by mouth once daily. - atenolol (TENORMIN) 50 mg tablet Take 1 tablet by mouth once daily. - ezetimibe (ZETIA) 10 mg tablet Take 1 tablet by mouth once daily. - multivitamin tablet Take 1 tablet by mouth once daily. - nitroglycerin sublingual (NITROQUICK) 0.4 mg SL tablet Dissolve 1 tablet under the tongue every 5 minutes as needed for chest pain. - docosahexaenoic acid/epa (FISH OIL ORAL) Take 1,000 mg by mouth. - cholecalciferol (VITAMIN D3) 5,000 unit tab Take 5,000 Units by mouth once daily. - ascorbic acid, vitamin C, (VITAMIN C) 500 mg tablet Take 500 mg by mouth once daily. - doxepin capsule 25 mg Take 1 capsule by mouth daily at bedtime. - Blood Pressure Cuff - Home Use BLOOD PRESSURE CUFF FOR HOME USE. DX: LABILE BLOOD PRESSURE - VITAMIN B COMPLEX (B COMPLEX 1 ORAL) Take by mouth. - diphenhydrAMINE (BENADRYL) 25 mg capsule Take 25 mg by mouth every 6 hours as needed. Problem List As Of Date 08/25/2023 Noted Resolved Essential hypertension, benign [I10] 03/04/2008 Mixed hyperlipidemia [E78.2] 01/13/2011 Neurodermatitis [L28.0] 07/12/2011 08/01/2018 Hyperuricemia [E79.0] 10/30/2014 08/12/2019 Anxiety [F41.9] 12/08/2014 Stool guaiac positive [R19.5] 01/19/2016 08/01/2018 Abrasion of left ear canal [S00.412A] 08/28/2017 08/12/2019 Impaired fasting glucose [R73.01] 09/03/2017 08/01/2018 Elevated alkaline phosphatase level [R74.8] 09/03/2017 Elevated PTHrP level [R79.89] 07/21/2018 08/12/2019 High serum parathyroid hormone (PTH) [R79.89] 08/01/2018 08/12/2019 Heart murmur, systolic [R01.1] 08/01/2018 Medicare annual wellness visit, subsequent [Z00*03/15/2021 Low vitamin D level [R79.89] 03/15/2021 Gout without tophus [M10.9] 03/15/2021 Prostate disorder [N42.9] 03/15/2021 Medication management [Z79.899] 03/15/2021 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] 03/15/2021 Elevated PSA [R97.20] 03/17/2021 Coronary artery disease due to lipid rich plaqu*12/06/[address] elevation myocardial infarction (*12/06/[address] [Z78.9] 04/18/2022 Advance directive discussed with patient [Z71.8*04/18/2022 NSTEMI (non-ST elevated myocardial infarction) *09/05/2022 04/19/2023 Diverticulosis [K57.90] 09/05/2022 Alcohol abuse [F10.10] 09/14/2022 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.*09/14/2022 Situational depression [F43.21] 09/14/2022 Atrophy of muscle of right shoulder [M62.511] 04/20/2023 Muscle wasting [M62.50] 04/20/2023 Balance problems [R26.89] 04/20/2023 Low serum vitamin B12 [E53.8] 05/18/2023 Valvular heart disease [I38] 05/18/2023 Lumbosacral radiculopathy at L5 [M54.17] 07/10/2023 Kidney lesion [N28.9] 08/21/2023 Encounter Status:Closed by NERI DENNY on 08/25/23 [facility] 08-25-2023 Note HNO ID: [id number] Author: NERI DENNY MA Service: ? Author Type: Mining Professionals Type: Progress Notes Filed: 08/25/2023 15:43 Note Text: POPULATION HEALTH NAVIGATION OUTREACH Action/FYI HM Due: Medicare wellness 2023 (last - 04/20/23). PCP follow up currently scheduled for 10/19/23. Left voice mail for patient to call back. [employer] message sent. Patient Identified by Name and : NO Outreach Outcome/Action Unable to reach patient: Left message [employer] message sent Did you use a PCP flex slot to schedule this appointment? N/A Reason for Outreach Care Gap or Scheduling/Wellness visits Payer: Payor: [facility] MEDICARE / Plan: [employer] A[employer] MEDICARE HMO / Product Type: HMO / Care Gap Reviewed:: Annual Wellness visit Reminder: Reminder note to check Health Maintenance for items below Health Maintenance items due: RSV Vaccine(1 - 1-dose 60+ series) Never done BP Controlled (<130/80) due on 03/15/2022 Advance Directive Discussion due on 07/24/2023 Navigation Signature: Neri Denny MA August 25, 2023 10:03 AM [facility] 08-25-2023 History of Presen t illness Narrative POPULATION HEALTH NAVIGATION OUTREACH Action/FYI HM Due: Medicare wellness 2023 (last - 04/20/23). PCP follow up currently scheduled for 10/19/23. Left voice mail for patient to call back. [employer] message sent. Patient Identified by Name and : NO Outreach Outcome/Action Unable to reach patient: Left message [employer] message sent Did you use a PCP flex slot to schedule this appointment? N/A Reason for Outreach Care Gap or Scheduling/Wellness visits Payer: Payor: [facility] MEDICARE / Plan: [employer] A[employer] MEDICARE HMO / Product Type: HMO / Care Gap Reviewed:: Annual Wellness visit Reminder: Reminder note to check Health Maintenance for items below Health Maintenance items due: RSV Vaccine(1 - 1-dose 60+ series) Never done BP Controlled (<130/80) due on 03/15/2022 Advance Directive Discussion due on 07/24/2023 Navigation Signature: Neri Denny MA August 25, 2023 10:03 AM documented in this encounter [facility] 08-23-2023 Miscellaneous Notes Patient calls and notified of results and providers instructions. Patient verbalizes understanding. Transferred to schedule. Cele Torres RN Called and left a voicemail for the Patient to call back and ask for a nurse to receive the providers message. Cecy Eisenberg RN Let patient know US of kidnies showed that the suspected Cystic lesions visualized on MRI are not well visualized sonographically and could be further evaluated with cross-sectional imaging. Therefore I have placed an order for a CT with and without contrast. documented in this encounter [facility] 08-17-2023 Note HNO ID: [id number] Author: BHAVANI VERMA RDMS Service: ? Author Type: Inspector Line Type: Progress Notes Filed: 08/17/2023 16:16 Note Text: Radiology Service Progress Note PATIENT NAME: Nazario Hutton DATE OF SERVICE: August 17, 2023 TIME: 4:15 PM PATIENT IDENTITY VERIFICATION COMPLETED USING TWO (2) IDENTIFIERS: Name and Date of confirmed by patient verbally. FALL SCREENING: Has the patient had 2 falls in the last year or 1 fall with injury or currently using an Ambulatory Assistive Device (Walker, Cane, Wheelchair, Crutches, etc.)? No PATIENT GENDER DATA: Male PATIENT RELEVANT IMPLANT DATA REVIEWED: Not Applicable PATIENT PRESENTS WITH AN IMPLANTABLE OR ATTACHED TOMBSTONE ERECTOR: No RADIOLOGY DEPARTMENT: Ultrasound PERIPHERAL IV DATA: Not applicable SIGNED BY: Bhavani Verma RDMS T August 17, 2023 4:15 PM [facility] 08-10-2023 Note HNO ID: [id number] Author: SAMANTA TAI RT(Federico) Service: ? Author Type: Technologist Type: Progress Notes Filed: 08/10/2023 10:27 Note Text: Radiology Service Progress Note PATIENT NAME: Nazario Hutton DATE OF SERVICE: August 10, 2023 TIME: 10:26 AM PATIENT IDENTITY VERIFICATION COMPLETED USING TWO (2) IDENTIFIERS: Name and Date of confirmed by patient verbally. FALL SCREENING: Has the patient had 2 falls in the last year or 1 fall with injury or currently using an Ambulatory Assistive Device (Walker, Cane, Wheelchair, Crutches, etc.)? No PATIENT GENDER DATA: Male PATIENT RELEVANT IMPLANT DATA REVIEWED: Yes RADIOLOGY DEPARTMENT: MR; Exam(s) Completed: Spine: Lumbar spine PERIPHERAL IV DATA: Not applicable SIGNED BY: Samanta Tai RT(R) August 10, 2023 10:26 AM [facility] 07-10-2023 Note HNO ID: [id number] Author: Valeriano Choe MD Service: ? Author Type: Physician Type: Progress Notes Filed: 07/10/2023 1:16 PM Note Text: Chief Complaint Patient presents with: discuss EMG results HPI Nazario Hutton is a 72 year old male who presents here today for to review results of EMG. Patient is here today for EMG results. These were done back in early May after patient c/o some off balance issues at times and numbness in the feet. Office visit - follow up on BP At last office visit we did increase patient's losartan to 50 mg daily Also increased the Sertraline to 100 mg daily. Is this helping? Yes, less anxiety and not picking at nodules as much. BP readings at home? 122/80 today Patient is here today with hx of anxiety, HTN, hyperlipidemia, CAD, elevated alk phose, recent GI bleed with Anemia and PR due to stress from the GI bleed. Patient does see Dr. Chacon last visit 01/05/2023 Patient also see [facility] last visit 12/09/2022 Patient stopped taking protonix. Patient is scheduled with Neurology on 07/03/2023 for eval of the muscle wasting in the shoulder region. Past medical history, appointments, medications, allergies reviewed. Previous Medical History PAST MEDICAL HISTORY Diagnosis Date Advance directive discussed with patient 04/18/2022 Discussed 03/2022 Alcohol abuse 09/14/2022 6 beers a day since passed in early 2021 Anxiety 12/08/2014 AVM (arteriovenous malformation) of colon 09/14/[address] Chacno BENIGN HYPERTENSION 03/04/2008 Coronary artery disease due to lipid rich plaque 12/06/[address] Snyder , cardio [place] Diverticulosis 09/05/2022 Elevated alkaline phosphatase level 09/03/2017 Elevated PSA 03/17/2021 Heart murmur, systolic 08/01/2018 High serum parathyroid hormone (PTH) 08/01/[address] elevation myocardial infarction (STEMI) 12/06/2021 Hyperuricemia 10/30/[address] 04/18/2022 DPA: Dawit (son) Low serum vitamin B12 05/18/2023 Low vitamin D level 03/15/2021 Medicare annual wellness visit, subsequent 03/15/2021 Medicare Part B: Not able to find. 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 Floyd, repeat 10 yrs REMV CATARACT EXTRACAP,INSERT LENS Bilateral 07/2022 Family History FAMILY HISTORY Problem Relation Age of Onset Cancer Mother lung cancer Ischemic Heart Disease Father 53 Alzheimer's Disease No Family History Colon Cancer No Family History Prostate Cancer No Family History Breast Cancer No Family History Ovarian cancer No Family History Diabetes No Family History Hypertension No Family History Hyperlipidemia No Family History Kidney Disease No Family History Seizures No Family History Stroke No Family History Thyroid No Family History Patient Allergies ALLERGIES Allergen Reactions Environmental [Othe* Unknown Hctz [Hydrochloroth* Unknown rash Current Medications Current Outpatient Medications on File Prior to Visit Medication Sig ezetimibe (ZETIA) 10 mg tablet Take 1 tablet by mouth once daily. allopurinol (ZYLOPRIM) 100 mg tablet TAKE 1 TABLET BY MOUTH ONCE DAILY. FOR GOUT. sertraline (ZOLOFT) 100 mg tablet Take one tablet by mouth daily losartan (COZAAR) 50 mg tablet Take 1 tablet by mouth once daily. atorvastatin (LIPITOR) 80 mg tablet TAKE 1 TABLET BY MOUTH ONCE DAILY. FOR CHOLESTEROL. aspirin, enteric coated (ASPIRIN, ENTERIC COATED) 81 mg EC tablet Take 1 tablet by mouth once daily. atenolol (TENORMIN) 50 mg tablet Take 1 tablet by mouth once daily. ezetimibe (ZETIA) 10 mg tablet Take 1 tablet by mouth once daily. multivitamin tablet Take 1 tablet by mouth once daily. nitroglycerin sublingual (NITROQUICK) 0.4 mg SL tablet Dissolve 1 tablet under the tongue every 5 minutes as needed for chest pain. docosahexaenoic acid/epa (FISH OIL ORAL) Take 1,000 mg by mouth. cholecalciferol (VITAMIN D3) 5,000 unit tab Take 5,000 Units by mouth once daily. ascorbic acid, vitamin C, (VITAMIN C) 500 mg tablet Take 500 mg by mouth once daily. doxepin capsule 25 mg Take 1 capsule by mouth daily at bedtime. Blood Pressure Cuff - Home Use BLOOD PRESSURE CUFF FOR HOME USE. DX: LABILE BLOOD PRESSURE VITAMIN B COMPLEX (B COMPLEX 1 ORAL) Take by mouth. diphenhydrAMINE (BENADRYL) 25 mg capsule Take 25 mg by mouth every 6 hours as needed. No current facility-administered medications on file prior to visit. Social History Social Histor (more content not included)... [facility] 06-01-2023 Note HNO ID: [id number] Author: Monserrat Soriano MA Service: ? Author Type: Mining Professionals Type: Progress Notes Filed: 06/01/2023 9:36 AM Note Text: See phone note. Left message for patient. Monserrat Soriano MA [facility] 06-01-2023 History of Presen t illness Narrative See phone note. Left message for patient. Monserrat Soriano MA Let patient know his nerve studies shows a radiculopathy on the right coming from his L5 region. I can try and order a MRI to look at his lumbar spine if ok with this? Scan on 05/25/2023 12:49 PM by Provider, ELIZABETH Smart: Consultation - Pulmonary documented in this encounter [facility] 05-29-2023 Note HNO ID: [id number] Author: Valeriano Choe MD Service: ? Author Type: Physician Type: Progress Notes Filed: 06/01/2023 9:36 AM Note Text: Let patient know his nerve studies shows a radiculopathy on the right coming from his L5 region. I can try and order a MRI to look at his lumbar spine if ok with this? [facility] 05-26-2023 Note HNO ID: [id number] Author: Zenobia Segovia Ma Service: ? Author Type: ? Type: Progress Notes Filed: 06/01/2023 9:36 AM Note Text: Scan on 05/25/2023 12:49 PM by Provider, ELIZABETH Smart: Consultation - Pulmonary [facility] 05-18-2023 Note HNO ID: [id number] Author: Valeriano Choe MD Service: ? Author Type: Physician Type: Progress Notes Filed: 05/18/2023 7:03 PM Note Text: Chief Complaint Patient presents with: Follow Up: 4 week follow up for BP. EDMUND Hutton is a 72 year old male who presents here today for 4 week follow up on BP and right ear. At last office visit we did increase patient's losartan to 50 mg daily Also increased the Sertraline to 100 mg daily. Is this helping? Yes, less anxiety and not picking at nodules as much. BP readings at home? 122/80 today Patient is here today with hx of anxiety, HTN, hyperlipidemia, CAD, elevated alk phose, recent GI bleed with Anemia and PR due to stress from the GI bleed. Patient does see Dr. Chacon last visit 01/05/2023 Patient also see [facility] last visit 12/09/2022 Patient stopped taking protonix. Patient is scheduled with Neurology on 07/03/2023 for eval of the muscle wasting in the shoulder region. Past medical history, appointments, medications, allergies reviewed. Previous Medical History PAST MEDICAL HISTORY Diagnosis Date Advance directive discussed with patient 04/18/2022 Discussed 03/2022 Alcohol abuse 09/14/2022 6 beers a day since passed in early 2021 Anxiety 12/08/2014 AVM (arteriovenous malformation) of colon 09/14/[address] Chacon BENIGN HYPERTENSION 03/04/2008 Coronary artery disease due to lipid rich plaque 12/06/[address] Snyder , cardio [place] Diverticulosis 09/05/2022 Elevated alkaline phosphatase level 09/03/2017 Elevated PSA 03/17/2021 Heart murmur, systolic 08/01/2018 High serum parathyroid hormone (PTH) 08/01/[address] elevation myocardial infarction (STEMI) 12/06/2021 Hyperuricemia 10/30/[address] 04/18/2022 DPA: Dawit (son) Low vitamin D level 03/15/2021 Medicare annual wellness visit, subsequent 03/15/2021 Medicare Part B: Not able to find. 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 Floyd, repeat 10 yrs REMV CATARACT EXTRACAP,INSERT LENS Bilateral 07/2022 Family History FAMILY HISTORY Problem Relation Age of Onset Cancer Mother lung cancer Ischemic Heart Disease Father 53 Alzheimer's Disease No Family History Colon Cancer No Family History Prostate Cancer No Family History Breast Cancer No Family History Ovarian cancer No Family History Diabetes No Family History Hypertension No Family History Hyperlipidemia No Family History Kidney Disease No Family History Seizures No Family History Stroke No Family History Thyroid No Family History Patient Allergies ALLERGIES Allergen Reactions Environmental [Othe* Unknown Hctz [Hydrochloroth* Unknown rash Current Medications Current Outpatient Medications on File Prior to Visit Medication Sig ezetimibe (ZETIA) 10 mg tablet Take 1 tablet by mouth once daily. allopurinol (ZYLOPRIM) 100 mg tablet TAKE 1 TABLET BY MOUTH ONCE DAILY. FOR GOUT. sertraline (ZOLOFT) 100 mg tablet Take one tablet by mouth daily losartan (COZAAR) 50 mg tablet Take 1 tablet by mouth once daily. atorvastatin (LIPITOR) 80 mg tablet TAKE 1 TABLET BY MOUTH ONCE DAILY. FOR CHOLESTEROL. aspirin, enteric coated (ASPIRIN, ENTERIC COATED) 81 mg EC tablet Take 1 tablet by mouth once daily. atenolol (TENORMIN) 50 mg tablet Take 1 tablet by mouth once daily. ezetimibe (ZETIA) 10 mg tablet Take 1 tablet by mouth once daily. multivitamin tablet Take 1 tablet by mouth once daily. nitroglycerin sublingual (NITROQUICK) 0.4 mg SL tablet Dissolve 1 tablet under the tongue every 5 minutes as needed for chest pain. docosahexaenoic acid/epa (FISH OIL ORAL) Take 1,000 mg by mouth. cholecalciferol (VITAMIN D3) 5,000 unit tab Take 5,000 Units by mouth once daily. ascorbic acid, vitamin C, (VITAMIN C) 500 mg tablet Take 500 mg by mouth once daily. doxepin capsule 25 mg Take 1 capsule by mouth daily at bedtime. Blood Pressure Cuff - Home Use BLOOD PRESSURE CUFF FOR HOME USE. DX: LABILE BLOOD PRESSURE VITAMIN B COMPLEX (B COMPLEX 1 ORAL) Take by mouth. diphenhydrAMINE (BENADRYL) 25 mg capsule Take 25 mg by mouth every 6 hours as needed. No current facility-administered medications on file prior to visit. Social History Social History Tobacco Use Smoking status: Never Smokeless tobacco: Never Substance Use Topics Alcohol use: Yes Drug use: No Review of Symptoms REVIEW OF SYSTEMS RESPIRATORY: Negative for wheezing, COPD, dyspnea or shortness of breath CARDIOVASCULAR: Negativ (more content not included)... [facility] 05-18-2023 Instructions Valeriano Choe MD - 05/18/2023 10:54 AM EDT Start taking over the counter B12 1000 mcg one a day documented in this encounter [facility] 05-18-2023 History of Presen t illness Narrative Chief Complaint Patient presents with: Follow Up: 4 week follow up for BP. EDMUND Hutton is a 72 year old male who presents here today for 4 week follow up on BP and right ear. At last office visit we did increase patient's losartan to 50 mg daily Also increased the Sertraline to 100 mg daily. Is this helping? Yes, less anxiety and not picking at nodules as much. BP readings at home? 122/80 today Patient is here today with hx of anxiety, HTN, hyperlipidemia, CAD, elevated alk phose, recent GI bleed with Anemia and PR due to stress from the GI bleed. Patient does see Dr. Chacon last visit 01/05/2023 Patient also see [facility] last visit 12/09/2022 Patient stopped taking protonix. Patient is scheduled with Neurology on 07/03/2023 for eval of the muscle wasting in the shoulder region. Past medical history, appointments, medications, allergies reviewed. Previous Medical History PAST MEDICAL HISTORY Diagnosis Date Advance directive discussed with patient 04/18/2022 Discussed 03/2022 Alcohol abuse 09/14/2022 6 beers a day since passed in early 2021 Anxiety 12/08/2014 AVM (arteriovenous malformation) of colon 09/14/[address] Chacon BENIGN HYPERTENSION 03/04/2008 Coronary artery disease due to lipid rich plaque 12/06/[address] Snyder , cardio [place] Diverticulosis 09/05/2022 Elevated alkaline phosphatase level 09/03/2017 Elevated PSA 03/17/2021 Heart murmur, systolic 08/01/2018 High serum parathyroid hormone (PTH) 08/01/[address] elevation myocardial infarction (STEMI) 12/06/2021 Hyperuricemia 10/30/[address] 04/18/2022 DPA: Dawit (son) Low vitamin D level 03/15/2021 Medicare annual wellness visit, subsequent 03/15/2021 Medicare Part B: Not able to find. 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 Floyd, repeat 10 yrs REMV CATARACT EXTRACAP,INSERT LENS Bilateral 07/2022 Family History FAMILY HISTORY Problem Relation Age of Onset Cancer Mother lung cancer Ischemic Heart Disease Father 53 Alzheimer's Disease No Family History Colon Cancer No Family History Prostate Cancer No Family History Breast Cancer No Family History Ovarian cancer No Family History Diabetes No Family History Hypertension No Family History Hyperlipidemia No Family History Kidney Disease No Family History Seizures No Family History Stroke No Family History Thyroid No Family History Patient Allergies ALLERGIES Allergen Reactions Environmental [Othe* Unknown Hctz [Hydrochloroth* Unknown rash Current Medications Current Outpatient Medications on File Prior to Visit Medication Sig ezetimibe (ZETIA) 10 mg tablet Take 1 tablet by mouth once daily. allopurinol (ZYLOPRIM) 100 mg tablet TAKE 1 TABLET BY MOUTH ONCE DAILY. FOR GOUT. sertraline (ZOLOFT) 100 mg tablet Take one tablet by mouth daily losartan (COZAAR) 50 mg tablet Take 1 tablet by mouth once daily. atorvastatin (LIPITOR) 80 mg tablet TAKE 1 TABLET BY MOUTH ONCE DAILY. FOR CHOLESTEROL. aspirin, enteric coated (ASPIRIN, ENTERIC COATED) 81 mg EC tablet Take 1 tablet by mouth once daily. atenolol (TENORMIN) 50 mg tablet Take 1 tablet by mouth once daily. ezetimibe (ZETIA) 10 mg tablet Take 1 tablet by mouth once daily. multivitamin tablet Take 1 tablet by mouth once daily. nitroglycerin sublingual (NITROQUICK) 0.4 mg SL tablet Dissolve 1 tablet under the tongue every 5 minutes as needed for chest pain. docosahexaenoic acid/epa (FISH OIL ORAL) Take 1,000 mg by mouth. cholecalciferol (VITAMIN D3) 5,000 unit tab Take 5,000 Units by mouth once daily. ascorbic acid, vitamin C, (VITAMIN C) 500 mg tablet Take 500 mg by mouth once daily. doxepin capsule 25 mg Take 1 capsule by mouth daily at bedtime. Blood Pressure Cuff - Home Use BLOOD PRESSURE CUFF FOR HOME USE. DX: LABILE BLOOD PRESSURE VITAMIN B COMPLEX (B COMPLEX 1 ORAL) Take by mouth. diphenhydrAMINE (BENADRYL) 25 mg capsule Take 25 mg by mouth every 6 hours as needed. No current facility-administered medications on file prior to visit. Social History Social History Tobacco Use Smoking status: Never Smokeless tobacco: Never Substance Use Topics Alcohol use: Yes Drug use: No Review of Symptoms REVIEW OF SYSTEMS RESPIRATORY: Negative for wheezing, COPD, dyspnea or shortness of breath CARDIOVASCULAR: Negative for chest pain, leg swelling, hypertension, CHF or palpitations NEURO: No history of headaches, syncope, paralysis, seizures or tremors EXAM: BP 122/80 Pulse (!) 58 Wt 91.8 kg (202 lb 4.8 oz) SpO2 96% BMI 30.09 kg/m General Appearance: Well appearing, alert, in no acute distress, well-hydrated, well nourished.. Lungs: Lungs clear to auscultation. No wheezing, rhonchi, rales.. Heart: RRR without gallop, or rubs. No ectopy. 2/6 LAYO LSB Extremities: No deformities, edema, skin discoloration, Good capillary refill. . Health Maintenance List RSV Vaccine(1 - 1-dose 60+ series) Never done DTaP,Tdap,Td Vaccine(2 - Td or Tdap) due on 04/20/2024 Shingrix Vaccine(1 of 2) due on 04/20/2024 Covid-19 Vaccine( season) due on 04/20/2024 LDL Cholesterol due on 04/14/2024 Annual PCP Team Chronic Disease Visit due on 05/01/2024 BP Controlled (<130/80) due on 05/01/2024 Colorectal Cancer Screening due on 09/05/2025 Diabetes Screening due on 04/14/2026 Lipid Screening due on 04/14/2028 Influenza Vaccine Completed Advance Directive Discussion Completed Pneumococcal Vaccine: 65+ Completed Hepatitis C Screening Discontinued Data reviewed A/P ASSESSMENT/PLAN: 1. Essential hypertension, benign - ICD9: 401.1, ICD10: I10 (primary diagnosis) - Controlled - Improving control - Continue current medications - Recommend home blood pressure monitoring, to bring results to next visit - Encouraged sodium restriction, DASH or Mediterranean diet - Recommend regular aerobic exercise 2. Low serum vitamin B12 - ICD9: 266.2, ICD10: E53.8 - patient to start B12 1000 mcg once a day 3. Anxiety - ICD9: 300.00, ICD10: F41.9 - cont sertraline 100 mg a day. Awaiting NCS/EMG studies and visit with Neuro. Prn next routine. Patient was asked at end of visit if they had any questions or input regarding the plan of care we had discussed. Valeriano Choe MD documented in this encounter [facility] 05-01-2023 Note HNO ID: [id number] Author: Suzanna Dawson PA-C Service: ? Author Type: Physician Revival Clerk Type: Progress Notes Filed: 05/01/2023 10:19 AM Note Text: Chief Complaint Patient presents with: Ear Lavage: right HPI Nazario Hutton is a 72 year old male who presents here today for Above Complaints.. Patient was seen a couple weeks ago and had excessive cerumen in R ear. Lavage was attempted but was unable to remove completely. Patient has been using OTC debrox and has noted benefit. Is here today just for recheck Past medical history, appointments, medications, allergies reviewed. Previous Medical History PAST MEDICAL HISTORY Diagnosis Date Advance directive discussed with patient 04/18/2022 Discussed 03/2022 Alcohol abuse 09/14/2022 6 beers a day since passed in early 2021 Anxiety 12/08/2014 AVM (arteriovenous malformation) of colon 09/14/[address] Chacon BENIGN HYPERTENSION 03/04/2008 Coronary artery disease due to lipid rich plaque 12/06/[address] Snyder , cardio [place] Diverticulosis 09/05/2022 Elevated alkaline phosphatase level 09/03/2017 Elevated PSA 03/17/2021 Heart murmur, systolic 08/01/2018 High serum parathyroid hormone (PTH) 08/01/[address] elevation myocardial infarction (STEMI) 12/06/2021 Hyperuricemia 10/30/[address] 04/18/2022 DPA: Dawit (son) Low vitamin D level 03/15/2021 Medicare annual wellness visit, subsequent 03/15/2021 Medicare Part B: Not able to find. 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 Floyd, repeat 10 yrs REMV CATARACT EXTRACAP,INSERT LENS Bilateral 07/2022 Family History FAMILY HISTORY Problem Relation Age of Onset Cancer Mother lung cancer Ischemic Heart Disease Father 53 Alzheimer's Disease No Family History Colon Cancer No Family History Prostate Cancer No Family History Breast Cancer No Family History Ovarian cancer No Family History Diabetes No Family History Hypertension No Family History Hyperlipidemia No Family History Kidney Disease No Family History Seizures No Family History Stroke No Family History Thyroid No Family History Patient Allergies ALLERGIES Allergen Reactions Environmental [Othe* Unknown Hctz [Hydrochloroth* Unknown rash Current Medications Current Outpatient Medications on File Prior to Visit Medication Sig ezetimibe (ZETIA) 10 mg tablet Take 1 tablet by mouth once daily. allopurinol (ZYLOPRIM) 100 mg tablet TAKE 1 TABLET BY MOUTH ONCE DAILY. FOR GOUT. sertraline (ZOLOFT) 100 mg tablet Take one tablet by mouth daily losartan (COZAAR) 50 mg tablet Take 1 tablet by mouth once daily. atorvastatin (LIPITOR) 80 mg tablet TAKE 1 TABLET BY MOUTH ONCE DAILY. FOR CHOLESTEROL. aspirin, enteric coated (ASPIRIN, ENTERIC COATED) 81 mg EC tablet Take 1 tablet by mouth once daily. atenolol (TENORMIN) 50 mg tablet Take 1 tablet by mouth once daily. ezetimibe (ZETIA) 10 mg tablet Take 1 tablet by mouth once daily. multivitamin tablet Take 1 tablet by mouth once daily. nitroglycerin sublingual (NITROQUICK) 0.4 mg SL tablet Dissolve 1 tablet under the tongue every 5 minutes as needed for chest pain. docosahexaenoic acid/epa (FISH OIL ORAL) Take 1,000 mg by mouth. cholecalciferol (VITAMIN D3) 5,000 unit tab Take 5,000 Units by mouth once daily. ascorbic acid, vitamin C, (VITAMIN C) 500 mg tablet Take 500 mg by mouth once daily. doxepin capsule 25 mg Take 1 capsule by mouth daily at bedtime. Blood Pressure Cuff - Home Use BLOOD PRESSURE CUFF FOR HOME USE. DX: LABILE BLOOD PRESSURE VITAMIN B COMPLEX (B COMPLEX 1 ORAL) Take by mouth. diphenhydrAMINE (BENADRYL) 25 mg capsule Take 25 mg by mouth every 6 hours as needed. No current facility-administered medications on file prior to visit. Social History Social History Tobacco Use Smoking status: Never Smokeless tobacco: Never Substance Use Topics Alcohol use: Yes Drug use: No Review of Symptoms REVIEW OF SYSTEMS See hpi EXAM: BP 116/76 (BP Site: Left Arm, BP Position: Sitting, BP Cuff Size: Large Adult) Pulse 62 Temp 36.4 ?C (97.5 ?F) Resp 16 Wt 91.6 kg (202 lb) BMI 30.05 kg/m? General Appearance: Well appearing, alert, in no acute distress, well-hydrated, well nourished.. Ears: External ears normal, canals clear. No cerumen present Health Maintenance List BP Controlled (<130/80) due on 03/15/2022 DTaP,Tdap,Td Vaccine(2 - Td or Tdap) due on 04/20/2024 Shingrix Vaccine(1 of 2) due on 04/20/2024 Covid-19 Vaccine(3 - B (more content not included)... [facility] 04-20-2023 Note HNO ID: [id number] Author: Lupillo Moura LPN Service: ? Author Type: ? Type: Progress Notes Filed: 04/20/2023 5:11 PM Note Text: Ambulatory Ear Lavage Pre-treatment: No pre-treatment Treatment: Right ear Equipment and Irrigation solution and Volume used: Single use syringe with single use irrigation tip Water Return flow appearance: Brown Other only a few flecks Patient tolerated procedure: yes Tympanic membrane assessment: Tympanic membrane assessed by LIP pre and post procedure [facility] 04-20-2023 History of Presen t illness Narrative Ambulatory Ear Lavage Pre-treatment: No pre-treatment Treatment: Right ear Equipment and Irrigation solution and Volume used: Single use syringe with single use irrigation tip Water Return flow appearance: Brown Other only a few flecks Patient tolerated procedure: yes Tympanic membrane assessment: Tympanic membrane assessed by LIP pre and post procedure Medicare Visit Medical B eligibility date Not able to find Date of last exam 04/18/2022 PAST MEDICAL HISTORY PAST MEDICAL HISTORY Diagnosis Date Anxiety 12/08/2014 BENIGN HYPERTENSION 03/04/2008 Heart murmur, systolic 08/01/2018 High serum parathyroid hormone (PTH) 08/01/2018 Hyperlipidemia LDL goal < 100 01/13/2011 Hyperuricemia 10/30/2014 Neurodermatitis 07/12/2011 PAST SURGICAL HISTORY PAST SURGICAL HISTORY Procedure Laterality Date COLONOSCOPY 03/24/2016 Dr. Floyd, repeat 10 yrs Environmental [Other] and Hctz [Hydrochlorothiazide] Medications reviewed: Yes FAMILY HISTORY FAMILY HISTORY Problem Relation Age of Onset Ischemic Heart Disease Father Cancer Mother lung cancer None Brother SOCIAL HISTORY: SOCIAL HISTORY Social History Tobacco Use Smoking status: Never Smoker Smokeless tobacco: Never Used Substance Use Topics Alcohol use: Yes Drug use: No Nazario has not been getting routine exercise since the beginning of the year. He watches his diet for sodium, low fat and low cholesterol most of the time. List of current specialists seen: Dr. Nicolas (Cardio) Dr. Chacon (gastro) End of Live Planning discussed including patients advanced directive wishes: Yes I am willing to follow Nazario's advanced directives. PHQ-2 / Depression screen Depression Screening 01/07/2016 08/28/2017 04/18/2022 04/20/2023 PHQ-2 Score 2 0 0 0 Depression screening tool completed and reviewed. Based on score and interview, patient is already diagnosed with depression. Screening tool discussed with patient, and I recommended continuing current plan of care. Functional Ability/Safety Screen 1. Was the patient's timed Up and Go test unsteady or longer than 30 seconds? No 2. Does the patient need help with the phone, transportation, shopping,preparing meals, housework, laundry, medications or managing money? No 3. Does your home have rugs in the hallway(Y), lack of grab bars in the bathroom(Y), lack of handrails on the stairs or have poor lighting? No Hearing Evaluation: normal PHYSICAL EXAM BP 138/94 (BP Site: Right Arm, BP Position: Sitting, BP Cuff Size: Regular Adult) Pulse 62 Resp 16 Ht 174.6 cm (5' 8.75 ) Wt 91.2 kg (201 lb) BMI 29.90 kg/m Alert and oriented X 3: YES Body mass index is 29.90 kg/m . Visual acuity: seeing optho See below ASSESSMENT/PLAN: 72 year old male The following prevention plan was discussed during the office visit and provided to the patient: See below Valeriano Choe MD Chief Complaint Patient presents with: Medicare Wellness Exam HPI Nazario Hutton is a 72 year old male who presents here today for Chronic Medical Conditions. and Medicare Annual Visit. No other concerns today. Patient with hx of anxiety, HTN, hyperlipidemia, CAD, elevated alk phose, recent GI bleed with Anemia and PR due to stress from the GI bleed. Patient does see Dr. Chacon last visit 01/05/2023 Patient also see [facility] last visit 12/09/2022 Patient stopped taking protonix. Past medical history, appointments, medications, allergies reviewed. Previous Medical History PAST MEDICAL HISTORY Diagnosis Date Advance directive discussed with patient 04/18/2022 Discussed 03/2022 Alcohol abuse 09/14/2022 6 beers a day since passed in early 2021 Anxiety 12/08/2014 AVM (arteriovenous malformation) of colon 09/14/[address] Chacon BENIGN HYPERTENSION 03/04/2008 Coronary artery disease due to lipid rich plaque 12/06/[address] Snyder , cardio [place] Diverticulosis 09/05/2022 Elevated alkaline phosphatase level 09/03/2017 Elevated PSA 03/17/2021 Heart murmur, systolic 08/01/2018 High serum parathyroid hormone (PTH) 08/01/[address] elevation myocardial infarction (STEMI) 12/06/2021 Hyperuricemia 10/30/[address] 04/18/2022 DPA: Dawit (son) Low vitamin D level 03/15/2021 Medicare annual wellness visit, subsequent 03/15/2021 Medicare Part B: Not able to find. 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 Floyd, repeat 10 yrs Family History FAMILY HISTORY Problem Relation Age of Onset Cancer Mother lung cancer Ischemic Heart Disease Father 53 Alzheimer's Disease No Family History Colon Cancer No Family History Prostate Cancer No Family History Breast Cancer No Family History Ovarian cancer No Family History Diabetes No Family History Hypertension No Family History Hyperlipidemia No Family History Kidney Disease No Family History Seizures No Family History Stroke No Family History Thyroid No Family History Patient Allergies ALLERGIES Allergen Reactions Environmental [Othe* Unknown Hctz [Hydrochloroth* Unknown rash Current Medications Current Outpatient Medications on File Prior to Visit Medication Sig sertraline (ZOLOFT) 50 mg tablet 1/2 a tablet by mouth once a day for 14 days then go to one tablet daily ezetimibe (ZETIA) 10 mg tablet Take 1 tablet by mouth once daily. allopurinol (ZYLOPRIM) 100 mg tablet TAKE 1 TABLET BY MOUTH ONCE DAILY. FOR GOUT. atorvastatin (LIPITOR) 80 mg tablet TAKE 1 TABLET BY MOUTH ONCE DAILY. FOR CHOLESTEROL. aspirin, enteric coated (ASPIRIN, ENTERIC COATED) 81 mg EC tablet Take 1 tablet by mouth once daily. atenolol (TENORMIN) 50 mg tablet Take 1 tablet by mouth once daily. sertraline (ZOLOFT) 50 mg tablet Take 1 tablet by mouth once daily. 1/2 a tablet by mouth once a day for 14 days then go to one tablet daily ezetimibe (ZETIA) 10 mg tablet Take 1 tablet by mouth once daily. pantoprazole DR (PROTONIX) 40 mg tablet Take 1 tablet by mouth twice daily. Take twice daily pantoprazole DR (PROTONIX) 40 mg tablet Take 1 tablet by mouth twice daily. Take twice daily multivitamin tablet Take 1 tablet by mouth once daily. nitroglycerin sublingual (NITROQUICK) 0.4 mg SL tablet Dissolve 1 tablet under the tongue every 5 minutes as needed for chest pain. docosahexaenoic acid/epa (FISH OIL ORAL) Take 1,000 mg by mouth. cholecalciferol (VITAMIN D3) 5,000 unit tab Take 5,000 Units by mouth once daily. ascorbic acid, vitamin C, (VITAMIN C) 500 mg tablet Take 500 mg by mouth once daily. doxepin capsule 25 mg Take 1 capsule by mouth daily at bedtime. Blood Pressure Cuff - Home Use BLOOD PRESSURE CUFF FOR HOME USE. DX: LABILE BLOOD PRESSURE VITAMIN B COMPLEX (B COMPLEX 1 ORAL) Take by mouth. diphenhydrAMINE (BENADRYL) 25 mg capsule Take 25 mg by mouth every 6 hours as needed. No current facility-administered medications on file prior to visit. Social History Social History Tobacco Use Smoking status: Never Smokeless tobacco: Never Substance Use Topics Alcohol use: Yes Drug use: No Review of Symptoms REVIEW OF SYSTEMS GENERAL: No weight loss, malaise or fevers HEENT: Negative for frequent or significant headaches, No changes in hearing or vision, no nose bleeds or other nasal problems NECK: Negative for lumps, goiter, pain and significant neck swelling RESPIRATORY: Negative for cough, hemoptysis, wheezing, COPD, dyspnea or shortness of breath CARDIOVASCULAR: Negative for chest pain, leg swelling, hypertension, CHF or palpitations GI: No nausea, vomiting, or frequent diarrhea, No heartburn or reflux symptoms, and no blood : No history of dysuria, frequency or blood MUSCULOSKELETAL: Negative for joint pain or swelling, back pain or muscle pain. Patient has noted over the past 6-12 months that he seems to have progressively lost muscle mass on the right upper chest and shoulder area. Notes that his right shoulder seems lower then the left. No significant neck pain and no known neck injury SKIN: Negative for lesions, rash, and itching PSYCH: Negative for sleep disturbance, mood disorder and recent psychosocial stressors HEMATOLOGY/LYMPHOLOGY: Negative for prolonged bleeding, bruising easily or swollen nodes ENDOCRINE: Negative for cold or heat intolerance, polyuria, polydipsia and goiter NEURO: No history of headaches, syncope, paralysis, seizures or tremors. Notes some balance issues of and on but no falls. Notes a numbness in his feet off and on several days a week EXAM: BP 138/94 (BP Site: Right Arm, BP Position: Sitting, BP Cuff Size: Regular Adult) Pulse 62 Resp 16 Ht 174.6 cm (5' 8.75 ) Wt 91.2 kg (201 lb) BMI 29.90 kg/m BP 152/81 (BP Site: Right Arm, BP Position: Sitting, BP Cuff Size: Regular Adult) Pulse (!) 53 Resp 16 Ht 174.6 cm (5' 8.75 ) Wt 91.2 kg (201 lb) BMI 29.90 kg/m Last 6 Encounter Wt Readings: Date: Wt: 04/20/2023 91.2 kg (201 lb) 10/12/2022 85.7 kg (189 lb) 09/14/2022 88.9 kg (196 lb) 04/18/2022 90.4 kg (199 lb 3.2 oz) 12/06/2021 91.2 kg (201 lb) 03/15/2021 94.3 kg (208 lb) General Appearance: Well appearing, alert, in no acute distress, well-hydrated, well nourished.. Skin: Skin color, texture, turgor normal, no suspicious rashes or lesions. Head: Normocephalic, no masses, lesions, tenderness or abnormalities. Eyes: Anicteric sclera. Pupils are equally round and reactive to light. Extraocular movements are intact. . Ears: External ears normal, canal clear on the left and blocked with wax on the right. Nose/Sinuses: Nares normal, septum midline, mucosa normal, no drainage or sinus tenderness. Oropharynx: Lips, mucosa, and tongue normal, teeth and gums normal, oropharynx normal. Neck: Supple, no adenopathy; thyroid symmetric, normal size, no bruits. Lungs: Lungs clear to auscultation. No wheezing, rhonchi, rales.. Heart: RRR without gallop, or rubs. No ectopy. Soft 2/6 LAYO Abdomen: Normal abdominal exam, Abdomen soft, non-tender. Bowel sounds normal. No masses, organomegaly. Extremities: No deformities, edema, skin discoloration, Good capillary refill. . Musculoskeletal: Spine range of motion normal. Muscular strength intact, No joint swelling, deformity, or tenderness, there is a notable drop in the right shoulder compared to the left there is also muscle wasting in the shoulder part of the right Trapezius and right pectoral muscles.. Peripheral Pulses: Normal. Neurologic: Gait normal. Reflexes normal and symmetric. Sensation to light touch and crainal nerves 2-12 intact.. Genitalia: Normal, Penis normal. No urethral discharge. Scrotum normal to palpation. No hernia.. Rectal: Normal exam. Prostate slightly enlarged with smooth firm capsule. Health Maintenance List Shingrix Vaccine(1 of 2) Never done DTaP,Tdap,Td Vaccine(2 - Td or Tdap) due on 03/04/2018 Covid-19 Vaccine(3 - Booster for Soy series) due on 07/22/2021 BP Controlled (<130/80) due on 03/15/2022 Advance Directive Discussion due on 07/24/2022 Influenza Vaccine(1) due on 03/24/2023 Annual PCP Team Chronic Disease Visit due on 10/13/2023 LDL Cholesterol due on 04/14/2024 Colorectal Cancer Screening due on 09/05/2025 Diabetes Screening due on 04/14/2026 Lipid Screening due on 04/14/2028 Pneumococcal Vaccine: 65+ Completed Hepatitis C Screening Discontinued Data reviewed Component Latest Ref Rng & Units 09/14/2022 10/05/2022 10/12/2022 04/14/2023 WBC 3.70 - 11.00 k/uL 11.51 (H) 8.21 7.49 RBC 4.20 - 6.00 m/uL 2.79 (L) 4.08 (L) 4.48 Hemoglobin 13.0 - 17.0 g/dL 9.2 (L) 12.6 (L) 15.6 Hematocrit 39.0 - 51.0 % 29.3 (L) 40.9 46.6 MCV 80.0 - 100.0 fL 105.0 (H) 100.2 (H) 104.0 (H) MCH 26.0 - 34.0 pg 33.0 30.9 34.8 (H) MCHC 30.5 - 36.0 g/dL 31.4 30.8 33.5 RDW-CV 11.5 - 15.0 % 16.9 (H) 15.4 (H) 12.6 Platelet Count 150 - 400 k/uL 323 307 225 MPV 9.0 - 12.7 fL 10.8 10.6 10.5 Neut% % 80.6 69.7 64.9 Abs Neut (ANC) 1.45 - 7.50 k/uL 9.27 (H) 5.73 4.86 Lymph% % 7.2 7.9 12.1 Abs Lymph 1.00 - 4.00 k/uL 0.83 (L) 0.65 (L) 0.91 (L) [place]% % 7.9 11.7 13.9 Abs [place] <0.87 k/uL 0.91 (H) 0.96 (H) 1.04 (H) Eosin% % 3.6 9.4 7.6 Abs Eosin <0.46 k/uL 0.41 0.77 (H) 0.57 (H) Baso% % 0.3 0.9 1.1 Abs Baso <0.11 k/uL 0.04 0.07 0.08 Immature Gran % % 0.4 0.4 0.4 IMMATURE GRANS (ABS) <0.10 k/uL 0.05 0.03 0.03 NRBC /100 WBC 0.0 0.0 0.0 Absolute nRBC <0.01 k/uL <0.01 <0.01 <0.01 DTYPE Auto Auto Auto Protein, Total 6.3 - 8.0 g/dL 6.3 7.2 7.5 Albumin 3.9 - 4.9 g/dL 3.4 (L) 4.0 4.3 Calcium 8.5 - 10.2 mg/dL 8.6 9.8 Bilirubin, Total 0.2 - 1.3 mg/dL 0.4 0.4 0.6 Alkaline Phosphatase 38 - 113 U/L 104 125 (H) 132 (H) AST 14 - 40 U/L 15 24 33 ALT 10 - 54 U/L 11 16 28 Glucose 74 - 99 mg/dL 98 91 BUN 9 - 24 mg/dL 6 (L) 16 Creatinine 0.73 - 1.22 mg/dL 0.81 0.73 Sodium 136 - 144 mmol/L 139 139 Potassium 3.7 - 5.1 mmol/L 4.2 4.7 Chloride 97 - 105 mmol/L 107 (H) 105 CO2 22 - 30 mmol/L 25 21 (L) Anion Gap 9 - 18 mmol/L 7 (L) 13 eGFR >=60 mL/min/1.73m 94 97 Total Cholesterol, Nonfasting <200 mg/dL 117 111 181 Triglycerides, Nonfasting <150 mg/dL 55 69 139 HDL Cholesterol, Nonfasting >39 mg/dL 35 (L) 34 (L) 49 LDL Cholesterol, Nonfasting <100 mg/dL 71 63 104 (H) Non HDL Cholesterol, Nonfasting <130 mg/dL 82 77 132 (H) VLDL Cholesterol, Nonfasting <30 mg/dL 11 14 28 Total Chol/HDL Ratio, Nonfasting <5.10 mg/dL 3.34 3.26 3.69 LDL/HDL Ratio, Nonfasting <2.54 mg/dL 2.03 1.85 2.12 Bilirubin, Conjug <0.2 mg/dL <0.2 Iron 41 - 186 ug/dL 23 (L) 46 TIBC 232 - 386 ug/dL 216 (L) 316 Transferrin Saturation 15.0 - 57.0 % 10.6 (L) 14.6 (L) PSA <2.60 ng/mL 3.55 (H) 4.01 (H) PSA, Percent Free % 21 30 Uric Acid 4.0 - 8.1 mg/dL 6.0 Vitamin D 25 Hydroxy 31.0 - 80.0 ng/mL 33.9 A/P ASSESSMENT/PLAN: 1. Medicare annual wellness visit, subsequent - ICD9: V70.0, ICD10: Z00.00 (primary diagnosis) - Counseled on healthy diet and regular exercise - Discussed need for and benefit of weight loss. BMI 29.90 kg/(m^2) - Patient was counseled [id number] by myself (the billing provider) for the following immunizations and vaccine components, including side effects: Influenza and Pneumococcal . Patient consents for immunization and understands risks and benefits. A VIS sheet on each immunization was given to the patient. - Follow up for annual exam in one year 2. Essential hypertension, benign - ICD9: 401.1, ICD10: I10 - Uncontrolled - Continue current medications - Increase losartan to 50 mg a day - Recommend home blood pressure monitoring, to bring results to next visit - Encouraged sodium restriction, DASH or Mediterranean diet - Recommend regular aerobic exercise 3. Mixed hyperlipidemia - ICD9: 272.2, ICD10: E78.2 - Uncontrolled - Worsening control - Continue current medications - Counseled on healthy diet and regular exercise - Discussed need for and benefit of weight loss. BMI 29.90 kg/(m^2) 4. Coronary artery disease due to lipid rich plaque - ICD9: 414.00, 414.3, ICD10: I25.10, I25.83 - clinically stable and managed per cardio 5. Anxiety - ICD9: 300.00, ICD10: F41.9 - will increase the sertraline to 100 mg a day to see if this helps lesson the pickers nodules. 6. Situational depression - ICD9: 309.0, ICD10: F43.21 - as per #5 7. Alcohol abuse - ICD9: 305.00, ICD10: F10.10 - patient has reduced consumption to a few a week 8. Gout without tophus - ICD9: 274.9, ICD10: M10.9 - stable with the allopurinol. 9. Low vitamin D level - ICD9: 790.6, ICD10: R79.89 - stable with replacement 10. Elevated PSA - ICD9: 790.93, ICD10: R97.20 - stable will continue to monitor Free PSA. 11. Balance problems - ICD9: 781.99, ICD10: R26.89 - CONSULT TO NEUROLOGY 12. Numbness and tingling of both feet - ICD9: 782.0, ICD10: R20.0, R20.2 Check - VITAMIN B12 BLOOD - TSH BLD - FOLATE SERUM - T4 FREE/FREE THYROX - will check NCS/EMG of lower extremities at [facility] 13. Atrophy of muscle of right shoulder - ICD9: 728.2, ICD10: M62.511 - CONSULT TO NEUROLOGY 14. Atrophy of muscle of other site - ICD9: 728.2, ICD10: M62.58 - CONSULT TO NEUROLOGY 15. Advance directive discussed with patient - ICD9: V65.49, ICD10: Z71.89 - patient to bring in copies 16. Need for vaccination - ICD9: V05.9, ICD10: Z23 - INFLUENZA VACCINE, PRSV FREE, AGE 65+ YR, HIGH DOSE, QUADRIVALENT (FLUZONE HIGH-DOSE): given - PNEUMOCOCCAL VACCINE (PREVNAR 20): Given 17. Excessive ear wax, right - ICD9: 380.4, ICD10: H61.21 Discussed irrigation with wam water. Verbal consent provided. Right ear was irrigated with warm water for the removal of wax per nursing. Patient tolerated well. Not all wax was removed. Ot advised on debrox and will f/u in a week for NV ear irrigation. Requested Prescriptions Signed Prescriptions Disp Refills sertraline (ZOLOFT) 100 mg tablet 90 tablet 1 Sig: Take one tablet by mouth daily ezetimibe (ZETIA) 10 mg tablet 90 tablet 1 Sig: Take 1 tablet by mouth once daily. allopurinol (ZYLOPRIM) 100 mg tablet 90 tablet 1 Sig: TAKE 1 TABLET BY MOUTH ONCE DAILY. FOR GOUT. losartan (COZAAR) 25 mg tablet Sig: Take 1 tablet by mouth once daily. F/u 6 months routine F/u 4 weeks HTN check NV in a week for ear irrigation. I spent a total of 49 minutes on the date of the service which included preparing to see the patient, [id number] patient care, completing clinical documentation, performing a medically appropriate examination, counseling and educating the patient/family/caregiver and ordering medications, tests, or procedures. Valeriano Choe MD documented in this encounter [facility] 04-20-2023 Note HNO ID: [id number] Author: Valeriano Choe MD Service: ? Author Type: Physician Type: Progress Notes Filed: 04/20/2023 5:11 PM Note Text: Medicare Visit Medical B eligibility date Not able to find Date of last exam 04/18/2022 PAST MEDICAL HISTORY PAST MEDICAL HISTORY Diagnosis Date Anxiety 12/08/2014 BENIGN HYPERTENSION 03/04/2008 Heart murmur, systolic 08/01/2018 High serum parathyroid hormone (PTH) 08/01/2018 Hyperlipidemia LDL goal < 100 01/13/2011 Hyperuricemia 10/30/2014 Neurodermatitis 07/12/2011 PAST SURGICAL HISTORY PAST SURGICAL HISTORY Procedure Laterality Date COLONOSCOPY 03/24/2016 Dr. Floyd, repeat 10 yrs Environmental [Other] and Hctz [Hydrochlorothiazide] Medications reviewed: Yes FAMILY HISTORY FAMILY HISTORY Problem Relation Age of Onset Ischemic Heart Disease Father Cancer Mother lung cancer None Brother SOCIAL HISTORY: SOCIAL HISTORY Social History Tobacco Use Smoking status: Never Smoker Smokeless tobacco: Never Used Substance Use Topics Alcohol use: Yes Drug use: No Nazario has not been getting routine exercise since the beginning of the year. He watches his diet for sodium, low fat and low cholesterol most of the time. List of current specialists seen: Dr. Nicolas (Cardio) Dr. Chacon (gastro) End of Live Planning discussed including patients advanced directive wishes: Yes I am willing to follow Nazario's advanced directives. PHQ-2 / Depression screen Depression Screening 01/07/2016 08/28/2017 04/18/2022 04/20/2023 PHQ-2 Score 2 0 0 0 Depression screening tool completed and reviewed. Based on score and interview, patient is already diagnosed with depression. Screening tool discussed with patient, and I recommended continuing current plan of care. Functional Ability/Safety Screen 1. Was the patient's timed Up and Go test unsteady or longer than 30 seconds? No 2. Does the patient need help with the phone, transportation, shopping,preparing meals, housework, laundry, medications or managing money? No 3. Does your home have rugs in the hallway(Y), lack of grab bars in the bathroom(Y), lack of handrails on the stairs or have poor lighting? No Hearing Evaluation: normal PHYSICAL EXAM BP 138/94 (BP Site: Right Arm, BP Position: Sitting, BP Cuff Size: Regular Adult) Pulse 62 Resp 16 Ht 174.6 cm (5' 8.75 ) Wt 91.2 kg (201 lb) BMI 29.90 kg/m? Alert and oriented X 3: YES Body mass index is 29.90 kg/m?. Visual acuity: seeing optho See below ASSESSMENT/PLAN: 72 year old male The following prevention plan was discussed during the office visit and provided to the patient: See below Valeriano Choe MD Chief Complaint Patient presents with: Medicare Wellness Exam HPI Nazario Hutton is a 72 year old male who presents here today for Chronic Medical Conditions. and Medicare Annual Visit. No other concerns today. Patient with hx of anxiety, HTN, hyperlipidemia, CAD, elevated alk phose, recent GI bleed with Anemia and PR due to stress from the GI bleed. Patient does see Dr. Chacon last visit 01/05/2023 Patient also see [facility] last visit 12/09/2022 Patient stopped taking protonix. Past medical history, appointments, medications, allergies reviewed. Previous Medical History PAST MEDICAL HISTORY Diagnosis Date Advance directive discussed with patient 04/18/2022 Discussed 03/2022 Alcohol abuse 09/14/2022 6 beers a day since passed in early 2021 Anxiety 12/08/2014 AVM (arteriovenous malformation) of colon 09/14/[address] Chacon BENIGN HYPERTENSION 03/04/2008 Coronary artery disease due to lipid rich plaque 12/06/[address] Snyder , cardio [place] Diverticulosis 09/05/2022 Elevated alkaline phosphatase level 09/03/2017 Elevated PSA 03/17/2021 Heart murmur, systolic 08/01/2018 High serum parathyroid hormone (PTH) 08/01/[address] elevation myocardial infarction (STEMI) 12/06/2021 Hyperuricemia 10/30/[address] 04/18/2022 DPA: Dawit (son) Low vitamin D level 03/15/2021 Medicare annual wellness visit, subsequent 03/15/2021 Medicare Part B: Not able to find. 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 Floyd, repeat 10 yrs Family History FAMILY HISTORY Problem Relation Age of Onset Cancer Mother lung cancer Ischemic Heart Disease Father 53 Alzheimer's Disease No Family History Colon Cancer No Family History Prostate Cancer No Family History Breast Cancer No Family History Ovarian cancer No Family Histo (more content not included)... [facility] 04-20-2023 Instructions Valeriano Choe MD - 04/20/2023 11:42 AM EDT Please bring in copies of your power of managing attorney for health care and living will. Consider getting the shingrix vaccine for the prevention of shingles from a local pharmacy Also consider getting a Tdap for tetanus update at the health dept. documented in this encounter [facility] 01-06-2023 Note HNO ID: [id number] Author: Lupillo Moura LPN Service: ? Author Type: ? Type: Progress Notes Filed: 01/06/2023 10:53 AM Note Text: Scan on 01/05/2023 2:11 PM by External Provider, ELIZABETH: Consultation - GI [facility] 01-06-2023 History of Presen t illness Narrative Scan on 01/05/2023 2:11 PM by External ProviderELIZABETH: Consultation - GI documented in this encounter [facility] 12-10-2022 Note HNO ID: [id number] Author: Lupillo Moura LPN Service: ? Author Type: ? Type: Progress Notes Filed: 12/11/2022 5:53 PM Note Text: Scan on 12/09/2022 11:56 AM by External Provider, ELIZABETH: Consultation - Cardiology Scan on 12/09/2022 1:15 PM by External Provider, ELIZABETH: Hematology [facility] 11-11-2022 Miscellaneous Notes The following approved medication requests have been transmitted electronically. Requested Prescriptions Signed Prescriptions Disp Refills sertraline (ZOLOFT) 50 mg tablet 90 tablet 1 Si/2 a tablet by mouth once a day for 14 days then go to one tablet daily Authorizing Provider: VALERIANO CHOE ezetimibe (ZETIA) 10 mg tablet 90 tablet 1 Sig: Take 1 tablet by mouth once daily. Authorizing Provider: VALERIANO CHOE allopurinol (ZYLOPRIM) 100 mg tablet 90 tablet 1 Sig: TAKE 1 TABLET BY MOUTH ONCE DAILY. FOR GOUT. Authorizing Provider: VALERIANO CHOE atorvastatin (LIPITOR) 80 mg tablet 90 tablet 1 Sig: TAKE 1 TABLET BY MOUTH ONCE DAILY. FOR CHOLESTEROL. Authorizing Provider: VALERIAON CHOE aspirin, enteric coated (ASPIRIN, ENTERIC COATED) 81 mg EC tablet 90 tablet 3 Sig: Take 1 tablet by mouth once daily. Authorizing Provider: VALERIANO CHOE atenolol (TENORMIN) 50 mg tablet 90 tablet 1 Sig: Take 1 tablet by mouth once daily. Authorizing Provider: VALERIANO CHOE Refused Prescriptions Disp Refills atenolol (TENORMIN) 50 mg tablet 90 tablet 3 Sig: Take 1 tablet by mouth once daily. Refused By: SAM JURADO Reason for Refusal: Refill currently being reviewed in another request allopurinol (ZYLOPRIM) 100 mg tablet 90 tablet 3 Sig: TAKE 1 TABLET BY MOUTH ONCE DAILY. FOR GOUT. Refused By: SAM JURADO Reason for Refusal: Refill currently being reviewed in another request atorvastatin (LIPITOR) 80 mg tablet 90 tablet 3 Sig: TAKE 1 TABLET BY MOUTH ONCE DAILY. FOR CHOLESTEROL. Refused By: SAM JURADO Reason for Refusal: Refill currently being reviewed in another request ezetimibe (ZETIA) 10 mg tablet 90 tablet 3 Sig: Take 1 tablet by mouth once daily. Refused By: SAM JURADO Reason for Refusal: Refill currently being reviewed in another request sertraline (ZOLOFT) 50 mg tablet 90 tablet 3 Si/2 a tablet by mouth once a day for 14 days then go to one tablet daily Refused By: SAM JURADO Reason for Refusal: Refill currently being reviewed in another request aspirin, enteric coated (ASPIRIN, ENTERIC COATED) 81 mg EC tablet 90 tablet 3 Sig: Take 1 tablet by mouth once daily. Refused By: SAM JURADO Reason for Refusal: Refill currently being reviewed in another request Valeriano Choe MD Patient has been identified by name and date of : Yes Requested Prescriptions Pending Prescriptions Disp Refills atenolol (TENORMIN) 50 mg tablet 90 tablet 3 Sig: Take 1 tablet by mouth once daily. allopurinol (ZYLOPRIM) 100 mg tablet 90 tablet 3 Sig: TAKE 1 TABLET BY MOUTH ONCE DAILY. FOR GOUT. atorvastatin (LIPITOR) 80 mg tablet 90 tablet 3 Sig: TAKE 1 TABLET BY MOUTH ONCE DAILY. FOR CHOLESTEROL. ezetimibe (ZETIA) 10 mg tablet 90 tablet 3 Sig: Take 1 tablet by mouth once daily. sertraline (ZOLOFT) 50 mg tablet 90 tablet 3 Si/2 a tablet by mouth once a day for 14 days then go to one tablet daily aspirin, enteric coated (ASPIRIN, ENTERIC COATED) 81 mg EC tablet 90 tablet 3 Sig: Take 1 tablet by mouth once daily. RACHAEL-10/12/22 Labs-10/12/22 NOV-04/20/23 RX INSTRUCTIONS: This is a mail order day supply to [facility] Patient aware RX will be sent to pharmacy. No need to notify patient. [facility] documented in this encounter [facility] 11-10-2022 Miscellaneous Notes Patient has been identified by name and date of : Yes Requested Prescriptions Pending Prescriptions Disp Refills sertraline (ZOLOFT) 50 mg tablet 30 tablet 0 Sig: Take 1 tablet by mouth once daily. 1/2 a tablet by mouth once a day for 14 days then go to one tablet daily aspirin, enteric coated (ASPIRIN, ENTERIC COATED) 81 mg EC tablet 30 tablet 0 Sig: Take 1 tablet by mouth once daily. RX INSTRUCTIONS: This is a short term RX copy of new mail order to go to local pharmacy [facility] Patient aware RX will be sent to pharmacy. No need to notify patient. [facility] [facility] 10-20-2022 Note HNO ID: [id number] Author: Monserrat Soriano MA Service: ? Author Type: [employer] Type: Progress Notes Filed: 10/20/2022 9:58 PM Note Text: Scan on 10/20/2022 9:25 AM by External Provider: Consultation - GI Monserrat Soriano MA [facility] 10-20-2022 History of Presen t illness Narrative Scan on 10/20/2022 9:25 AM by External Provider: Consultation - GI Monserrat Soriano MA documented in this encounter [facility] 10-13-2022 Miscellaneous Notes Attempted to reach pt with results and instructions. Got same results as below. Sent results to pt via and sent copy of labs to Dr Chacon. Notified pt of same. Lupillo Moura LPN Attempted again to reach pt. Vm is full and home number is busy. Will keep trying to reach pt with results. Lupillo Moura LPN Attempted to contact pt. Vm is full. Will need to try again later. Lupillo Moura LPN ----- Message from Suzanna Dawson PA-C sent at 10/13/2022 8:23 AM EDT ----- Blood counts and iron have improved. Keep follow up with gastro documented in this encounter [facility] 10-12-2022 Note HNO ID: [id number] Author: Suzanna Dawson PA-C Service: ? Author Type: Physician Revival Clerk Type: Progress Notes Filed: 10/12/2022 12:02 PM Note Text: Chief Complaint Patient presents with: F/U 6 Month HPI Nazario Hutton is a 71 year old male who presents here today for Chronic Medical Conditions.. Patient with hx of anxiety, HTN, hyperlipidemia, CAD, elevated alk phose, recent GI bleed with Anemia and PR due to stress from the GI bleed. Patient overall doing okay. Had a rash on his leg that has gone away. However he did scratch skin open in one area. No other concerns. Has a follow up with Dr. Chacon next Monday. Past medical history, appointments, medications, allergies reviewed. Previous Medical History PAST MEDICAL HISTORY Diagnosis Date Advance directive discussed with patient 04/18/2022 Discussed 03/2022 Alcohol abuse 09/14/2022 6 beers a day since passed in early 2021 Anxiety 12/08/2014 AVM (arteriovenous malformation) of colon 09/14/[address] Chacon BENIGN HYPERTENSION 03/04/2008 Coronary artery disease due to lipid rich plaque 12/06/[address] Snyder , cardio [place] Diverticulosis 09/05/2022 Elevated alkaline phosphatase level 09/03/2017 Elevated PSA 03/17/2021 Heart murmur, systolic 08/01/2018 High serum parathyroid hormone (PTH) 08/01/[address] elevation myocardial infarction (STEMI) 12/06/2021 Hyperuricemia 10/30/[address] 04/18/2022 DPA: Dawit (son) Low vitamin D level 03/15/2021 Medicare annual wellness visit, subsequent 03/15/2021 Medicare Part B: Not able to find. 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 Floyd, repeat 10 yrs Family History FAMILY HISTORY Problem Relation Age of Onset Cancer Mother lung cancer Ischemic Heart Disease Father 53 Alzheimer's Disease No Family History Colon Cancer No Family History Prostate Cancer No Family History Breast Cancer No Family History Ovarian cancer No Family History Diabetes No Family History Hypertension No Family History Hyperlipidemia No Family History Kidney Disease No Family History Seizures No Family History Stroke No Family History Thyroid No Family History Patient Allergies ALLERGIES Allergen Reactions Environmental [Othe* Unknown Hctz [Hydrochloroth* Unknown rash Current Medications Current Outpatient Medications on File Prior to Visit Medication Sig ferrous sulfate 325 mg (65 mg iron) EC tablet Take 325 mg by mouth. pantoprazole DR (PROTONIX) 40 mg tablet Take 40 mg by mouth twice daily. Take twice daily sertraline (ZOLOFT) 50 mg tablet 1/2 a tablet by mouth once a day for 14 days then go to one tablet daily multivitamin tablet Take 1 tablet by mouth once daily. nitroglycerin sublingual (NITROQUICK) 0.4 mg SL tablet Dissolve 1 tablet under the tongue every 5 minutes as needed for chest pain. ezetimibe (ZETIA) 10 mg tablet Take 1 tablet by mouth once daily. allopurinol (ZYLOPRIM) 100 mg tablet TAKE 1 TABLET BY MOUTH ONCE DAILY. FOR GOUT. atorvastatin (LIPITOR) 80 mg tablet TAKE 1 TABLET BY MOUTH ONCE DAILY. FOR CHOLESTEROL. atenolol (TENORMIN) 50 mg tablet Take 1 tablet by mouth once daily. aspirin, enteric coated (ASPIRIN, ENTERIC COATED) 81 mg EC tablet Take 81 mg by mouth once daily. docosahexaenoic acid/epa (FISH OIL ORAL) Take 1,000 mg by mouth. cholecalciferol (VITAMIN D3) 5,000 unit tab Take 5,000 Units by mouth once daily. ascorbic acid, vitamin C, (VITAMIN C) 500 mg tablet Take 500 mg by mouth once daily. doxepin capsule 25 mg Take 1 capsule by mouth daily at bedtime. Blood Pressure Cuff - Home Use BLOOD PRESSURE CUFF FOR HOME USE. DX: LABILE BLOOD PRESSURE VITAMIN B COMPLEX (B COMPLEX 1 ORAL) Take by mouth. diphenhydrAMINE (BENADRYL) 25 mg capsule Take 25 mg by mouth every 6 hours as needed. clopidogrel (PLAVIX) 75 mg tablet Take 1 tablet by mouth once daily. (Patient not taking: Reported on 10/12/2022) clopidogrel (PLAVIX) 75 mg tablet Take 1 tablet by mouth once daily. (Patient not taking: Reported on 10/12/2022) No current facility-administered medications on file prior to visit. Social History Social History Tobacco Use Smoking status: Never Smokeless tobacco: Never Substance Use Topics Alcohol use: Yes Drug use: No Review of Symptoms REVIEW OF SYSTEMS GENERAL: No weight loss, malaise or fevers NECK: Negative for lumps, goiter, pain and significant neck swelling RESPIRATORY: Negative for cough, hemoptysis, wheezing, COPD, dyspnea or (more content not included)... [facility] 10-12-2022 History of Presen t illness Narrative Chief Complaint Patient presents with: F/U 6 Month HPI Nazario Hutton is a 71 year old male who presents here today for Chronic Medical Conditions.. Patient with hx of anxiety, HTN, hyperlipidemia, CAD, elevated alk phose, recent GI bleed with Anemia and PR due to stress from the GI bleed. Patient overall doing okay. Had a rash on his leg that has gone away. However he did scratch skin open in one area. No other concerns. Has a follow up with Dr. Chacon next Monday. Past medical history, appointments, medications, allergies reviewed. Previous Medical History PAST MEDICAL HISTORY Diagnosis Date Advance directive discussed with patient 04/18/2022 Discussed 03/2022 Alcohol abuse 09/14/2022 6 beers a day since passed in early 2021 Anxiety 12/08/2014 AVM (arteriovenous malformation) of colon 09/14/[address] Chacon BENIGN HYPERTENSION 03/04/2008 Coronary artery disease due to lipid rich plaque 12/06/[address] Snyder , cardio [place] Diverticulosis 09/05/2022 Elevated alkaline phosphatase level 09/03/2017 Elevated PSA 03/17/2021 Heart murmur, systolic 08/01/2018 High serum parathyroid hormone (PTH) 08/01/[address] elevation myocardial infarction (STEMI) 12/06/2021 Hyperuricemia 10/30/[address] 04/18/2022 DPA: Dawit (son) Low vitamin D level 03/15/2021 Medicare annual wellness visit, subsequent 03/15/2021 Medicare Part B: Not able to find. 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 Floyd, repeat 10 yrs Family History FAMILY HISTORY Problem Relation Age of Onset Cancer Mother lung cancer Ischemic Heart Disease Father 53 Alzheimer's Disease No Family History Colon Cancer No Family History Prostate Cancer No Family History Breast Cancer No Family History Ovarian cancer No Family History Diabetes No Family History Hypertension No Family History Hyperlipidemia No Family History Kidney Disease No Family History Seizures No Family History Stroke No Family History Thyroid No Family History Patient Allergies ALLERGIES Allergen Reactions Environmental [Othe* Unknown Hctz [Hydrochloroth* Unknown rash Current Medications Current Outpatient Medications on File Prior to Visit Medication Sig ferrous sulfate 325 mg (65 mg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 (statuses as of 08/25/2023) [facility] History of Past illness Narrative* Problem Noted Date Diagnosed Date Resolved Date NSTEMI (non-ST elevated myoc ardial infarction) 09/05/2022 04/19/2023 Overview: 08/2022 (suspected demand ischemia due to lower GI bleed from diverticulosis) High serum parathyroid hormone (PTH) 08/01/2018 08/12/2019 Elevated PTHrP level 07/21/2018 020 Impaired fasting glucose 09/03/201703/2019 Abrasion of left ear canal 08/28/2017 0 08/12/2019 Stool guaiac positive 01/19/20162018 Hyperuricemia 10/30/2014 08/12/2019 Neurodermatitis 07/12/2011 08/01/2018 documented as of this encounter (statuses as of 08/29/2023) [facility] History of Past illness Narrative* Problem Noted Date Diagnosed Date Resolved Date NSTEMI (non-ST elevated myoc ardial infarction) 09/05/2022 04/19/2023 Overview: 08/2022 (suspected demand ischemia due to lower GI bleed from diverticulosis) High serum parathyroid hormone (PTH) 08/01/2018 08/12/2019 Elevated PTHrP level 07/21/2018 020 Impaired fasting glucose 09/03/201703/2019 Abrasion of left ear canal 08/28/2017 0 08/12/2019 Stool guaiac positive 01/19/20162018 Hyperuricemia 10/30/2014 08/12/2019 Neurodermatitis 07/12/2011 08/01/2018 documented as of this encounter (statuses as of 09/01/2023) [facility]13[facility] History of Past illness Narrative* Problem Noted Date Diagnosed Date Resolved Date NSTEMI (non-ST elevated myoc ardial infarction) 09/05/2022 04/19/2023 Overview: 08/2022 (suspected demand ischemia due to lower GI bleed from diverticulosis) High serum parathyroid hormone (PTH) 08/01/2018 08/12/2019 Elevated PTHrP level 07/21/2018 020 Impaired fasting glucose 09/03/201703/2019 Abrasion of left ear canal 08/28/2017 0 08/12/2019 Stool guaiac positive 01/19/20162018 Hyperuricemia 10/30/2014 08/12/2019 Neurodermatitis 07/12/2011 08/01/2018 documented as of this encounter (statuses as of 09/04/2023) [facility]09-26-2022 Instructions* Patient Instructions* Valeriano Choe MD - 04/18/2022 3:14 PM EDT Consider getting the shingrix vaccine for the prevention of shingles from a local pharmacy Please get labs done on or after 10/07/2022 prior to your next visit. [facility] History of Present illness Narrative* Valeriano Choe MD - 04/18/2022 2:40 PM EDT Welcome To Medicare Visit Medical B eligibility date Not able to find Date of last exam 03/15/2022 PAST MEDICAL HISTORY PAST MEDICAL HISTORY Diagnosis Date Anxiety 12/08/2014 BENIGN HYPERTENSION 03/04/2008 Heart murmur, systolic 08/01/2018 High serum parathyroid hormone (PTH) 08/01/2018 Hyperlipidemia LDL goal < 100 01/13/2011 Hyperuricemia 10/30/2014 Neurodermatitis 07/12/2011 PAST SURGICAL HISTORY PAST SURGICAL HISTORY Procedure Laterality Date COLONOSCOPY 03/24/2016 Dr. Floyd, repeat 10 yrs Environmental [Other] and Hctz [Hydrochlorothiazide] Medications reviewed: Yes FAMILY HISTORY FAMILY HISTORY Problem Relation Age of Onset Ischemic Heart Disease Father Cancer Mother lung cancer None Brother SOCIAL HISTORY: SOCIAL HISTORY Social History Tobacco Use Smoking status: Never Smoker Smokeless tobacco: Never Used Substance Use Topics Alcohol use: Yes Drug use: No Nazario getting cardiac rehab 3 days a week He watches his diet for sodium, low fat and low cholesterol most of the time. List of current specialists seen: Dr. Nicolas (Cardio) End of Live Planning discussed including patients advanced directive wishes: Yes I am willing to follow Nazario's advanced directives. PHQ-2 / Depression screen Depression Screening 01/07/2016 08/28/2017 04/18/2022 PHQ-2 Score 2 0 0 Depression screening tool completed and reviewed. Based on score and interview, patient is not at risk for depression. Screening tool discussed with patient, and I recommended no further interventionat this time. Functional Ability/Safety Screen 1. Was the patient's timed Up and Go test unsteady or longer than 30 seconds? No 2. Does the patient need help with the phone, transportation, shopping,preparing meals, housework, laundry, medications or managing money? No 3. Does your home have rugs in the hallway(Y), lack of grab bars in the bathroom(Y), lack of handrails on the stairs or have poor lighting? No Hearing Evaluation: normal PHYSICAL EXAM BP 140/80 Pulse 66 Resp 16 Ht 174 cm (5' 8.5 ) Wt 90.4 kg (199 lb 3.2 oz) BMI 29.85 kg/m Alert and oriented X 3: YES Body mass index is 39.85 kg/m . Visual acuity: seeing optho See below ASSESSMENT/PLAN: 71 year old male The following prevention plan was discussed during the office visit and provided to the patient: See below Valeriano Choe MD Chief Complaint Patient presents with: Medicare Wellness Exam HPI Nazario Hutton is a 71 year old male who presents here today for extensive Visit. Patient with hx of Anxiety, HTN, Hyperlipidemia, heart murmur, CAD elevated Alk phos as well as those reviewed and addressed below nd in ROS. Patient had a NSTEMI back in November and had 3 stents placed in January 2022. He is currently doing cardiac rehab at [facility] 3 days a week. Umpping about 3 baseball games a week. Past medical history, appointments, medications, allergies reviewed. Previous Medical History PAST MEDICAL HISTORY Diagnosis Date Anxiety 12/08/2014 BENIGN HYPERTENSION 03/04/2008 Coronary artery disease due to lipid rich plaque 12/06/[address] Snyder , cardio [place] Elevated alkaline phosphatase level 09/03/2017 Elevated PSA 03/17/2021 Heart murmur, systolic 08/01/2018 High serum parathyroid hormone (PTH) 08/01/[address] elevation myocardial infarction (STEMI) 12/06/2021 Hyperuricemia 10/30/2014 Low vitamin D level 03/15/2021 Medicare annual wellness visit, subsequent 03/15/2021 Medicare Part B: Not able to find. 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 Floyd, repeat 10 yrs Family History FAMILY HISTORY Problem Relation Age of Onset Cancer Mother lung cancer Ischemic Heart Disease Father 53 Alzheimer's Disease No Family History Colon Cancer No Family History Prostate Cancer No Family History Breast Cancer No Family History Ovarian cancer No Family History Diabetes No Family History Hypertension No Family History Hyperlipidemia No Family History Kidney Disease No Family History Seizures No Family History Stroke No Family History Thyroid No Family History Patient Allergies ALLERGIES Allergen Reactions Environmental [Othe* Unknown Hctz [Hydrochloroth* Unknown rash Current Medications Current Outpatient Medications on File Prior to Visit Medication Sig atenolol (TENORMIN) 50 mg tablet Take 1 tablet by mouth once daily. ticagrelor (BRILINTA) 90 mg tablet Take 1 tablet by mouth twice daily. Per Cardio, Dr. Snyder allopurinol (ZYLOPRIM) 100 mg tablet TAKE 1 TABLET BY MOUTH ONCE DAILY. FOR GOUT. atorvastatin (LIPITOR) 80 mg tablet TAKE 1 TABLET BY MOUTH ONCE DAILY. FOR CHOLESTEROL. aspirin, enteric coated (ASPIRIN, ENTERIC COATED) 81 mg EC tablet Take 81 mg by mouth once daily. docosahexaenoic acid/epa (FISH OIL ORAL) Take 1,000 mg by mouth. cholecalciferol (VITAMIN D-3) 5,000 unit tab Take 5,000 Units by mouth once daily. ascorbic acid, vitamin C, (VITAMIN C) 500 mg tablet Take 500 mg by mouth once daily. doxepin capsule 25 mg Take 1 capsule by mouth daily at bedtime. Blood Pressure Cuff - Home Use BLOOD PRESSURE CUFF FOR HOME USE. DX: LABILE BLOOD PRESSURE VITAMIN B COMPLEX (B COMPLEX 1 ORAL) Take by mouth. diphenhydrAMINE (BENADRYL) 25 mg capsule Take 25 mg by mouth every 6 hours as needed. No current facility-administered medications on file prior to visit. Social History Social History Tobacco Use Smoking status: Never Smokeless tobacco: Never Substance Use Topics Alcohol use: Yes Drug use: No Review of Symptoms REVIEW OF SYSTEMS GENERAL: No unintentional weight loss, malaise or fevers HEENT: Negative for frequent or significant headaches, No changes in hearing or vision, no nose bleeds or other nasal problems NECK: Negative for lumps, goiter, pain and significant neck swelling RESPIRATORY: Negative for cough, hemoptysis, wheezing, COPD, dyspnea or shortness of breath CARDIOVASCULAR: Negative for chest pain, leg swelling, hypertension, CHF or palpitations GI: No nausea, vomiting, or diarrhea, No heartburn or reflux symptoms, and no blood : No history of dysuria, blood MUSCULOSKELETAL: Negative for joint pain or swelling, back pain or muscle pain SKIN: Negative for lesions, rash, and itching PSYCH: Negative for sleep disturbance, mood disorder and recent psychosocial stressors HEMATOLOGY/LYMPHOLOGY: Negative for prolonged bleeding, bruising easily or swollen nodes. Other than what he has with being on anticoagulants. ENDOCRINE: Negative for cold or heat intolerance, polyuria, polydipsia and goiter NEURO: No history of syncope, paralysis, seizures or tremors. Has an occasional headache that is like his norm. EXAM: BP 140/80 Pulse 66 Resp 16 Ht 174 cm (5' 8.5 ) Wt 90.4 kg (199 lb 3.2 oz) BMI 29.85 kg/m Last 4 Encounter Wt Readings: Date: Wt: 04/18/2022 90.4 kg (199 lb 3.2 oz) 12/06/2021 91.2 kg (201 lb) 03/15/2021 94.3 kg (208 lb) 08/12/2019 97.5 kg (215 lb) General Appearance: Well appearing, alert, in no acute distress, well-hydrated, well nourished.. Skin: Skin color, texture, turgor normal, no suspicious rashes or lesions. Head: Normocephalic, no masses, lesions, tenderness or abnormalities. Eyes: Anicteric sclera. Pupils are equally round and reactive to light. Extraocular movements are intact. . Ears: External ears TM's normal, canals clear. Neck: Supple, no adenopathy; thyroid symmetric, normal size, no bruits. Lungs: Lungs clear to auscultation. No wheezing, rhonchi, rales.. Heart: RRR without murmur, gallop, or rubs. No ectopy. Abdomen: Normal abdominal exam, Abdomen soft, non-tender. Bowel sounds normal. No masses, organomegaly. Extremities: No deformities, edema, skin discoloration, clubbing or cyanosis. Good capillary refill. Musculoskeletal: Muscular strength intact, No joint swelling, deformity, or tenderness. Peripheral Pulses: Normal. Neurologic: Gait normal. Reflexes normal and symmetric. Sensation to light touch and crainal nerves2-12 intact.. Genitalia: Normal, Penis normal. No urethral discharge. Scrotum normal to palpation. No hernia.. Rectal: Normal exam. Prostate slightly enlarged but smooth firm capsule. Health Maintenance List SHINGRIX VACCINE(1 of 2) Never done DTAP,TDAP,TD(2 - Td or Tdap) due on 03/04/2018 COVID-19 VACCINE(3 - Booster for Soy series) due on 07/22/2021 ADVANCE DIRECTIVE DISCUSSION Never done BP CONTROLLED (<130/80) due on 03/15/2022 INFLUENZA(1) due on 03/24/2022 ANNUAL PCP TEAM CHRONIC DISEASE VISIT due on 12/06/2022 LDL CHOLESTEROL due on 04/13/2023 DIABETES SCREEN due on 04/13/2025 COLORECTAL CANCER SCREENING due on 03/24/2026 LIPID SCREEN due on 04/13/2027 PNEUMOCOCCAL: 65+ Completed HEPATITIS C SCREENING Discontinued DEPRESSION SCREENING Discontinued Data reviewed Component Latest Ref Rng & Units 03/15/2021 03/19/2021 04/13/2022 WBC 3.70 - 11.00 k/uL 8.70 7.06 RBC 4.20 - 6.00 m/uL 4.36 4.20 Hemoglobin 13.0 - 17.0 g/dL 14.8 14.4 Hematocrit 39.0 - 51.0 % 45.3 44.2 MCV 80.0 - 100.0 fL 103.9 (H) 105.2 (H) MCH 26.0 - 34.0 pg 33.9 34.3 (H) MCHC 30.5 - 36.0 g/dL 32.7 32.6 RDW-CV 11.5 - 15.0 % 13.0 12.8 Platelet Count 150 - 400 k/uL 275 241 MPV 9.0 - 12.7 fL 10.7 10.2 Neut% % 67.1 66.6 Abs Neut (ANC) 1.45 - 7.50 k/uL 5.84 4.70 Lymph% % 8.3 12.3 Abs Lymph 1.00 - 4.00 k/uL 0.72 (L) 0.87 (L) [place]% % 12.2 13.2 Abs [place] <0.87 k/uL 1.06 (H) 0.93 (H) Eosin% % 11.4 6.8 Abs Eosin <0.46 k/uL 0.99 (H) 0.48 (H) Baso% % 1.0 0.8 Abs Baso <0.11 k/uL 0.09 0.06 Immature Gran % % 0.3 IMMATURE GRANS (ABS) <0.10 k/uL <0.03 NRBC /100 WBC 0.0 Absolute nRBC <0.01 k/uL <0.01 <0.01 DTYPE Auto Nucleated Reds 0 /100 WBC 0.0 Diff Type Auto Diff Color Yellow Dark Yellow (A) Yellow Clarity Clear Slightly Cloudy (A) Clear Glucose, Urine Negative Negative Negative Bilirubin, Urine Negative Negative Negative Ketones, Urine Negative Negative Negative Specific [place], Ur 1.005 - 1.030 1.021 1.017 Hemoglobin/Blood,Ur Negative Negative Negative pH, Urine 5.0 - 8.0 5.0 5.5 Protein, Urine Negative 1+ (A) Trace (A) Urobilinogen Negative 2+ (A) Negative Nitrites Negative Negative Negative Leukest Negative Trace (A) 75 Jade/mL (A) Comment SEE COMMENT Urine Jalen Comment SEE COMMENT WBC, Urine 0-5 /HPF 0-5 6-10 /HPF (A) RBC, Urine 0-3 /HPF 0-3 0-3 /HPF Cast 0 /LPF SEE COMMENT (A) Epithelial Cells /HPF SEE COMMENT Few Crystal 0 /HPF SEE COMMENT (A) Protein, Total 6.3 - 8.0 g/dL 7.7 7.1 Albumin 3.9 - 4.9 g/dL 4.3 4.1 Calcium 8.5 - 10.2 mg/dL 9.9 9.0 Bilirubin, Total 0.2 - 1.3 mg/dL 0.8 0.7 Alkaline Phosphatase 38 - 113 U/L 143 (H) 123 (H) AST 14 - 40 U/L 39 34 Glucose 74 - 99 mg/dL 106 (H) 90 BUN 9 - 24 mg/dL 10 10 Creatinine 0.73 - 1.22 mg/dL 0.69 (L) 0.68 (L) Sodium 136 - 144 mmol/L 136 136 Potassium 3.7 - 5.1 mmol/L 4.6 4.6 Chloride 97 - 105 mmol/L 102 103 CO2 22 - 30 mmol/L 25 21 (L) Anion Gap 9 - 18 mmol/L 9 12 ALT 10 - 54 U/L 29 17 eGFR- >60 eGFR-All Other Races . >60 Hyaline Cast 0 /LPF 4-10 /LPF (A) Calcium Oxalate Crystals None Seen /HPF Few (A) eGFR >=60 mL/min/1.73m 99 Total Cholesterol, Nonfasting <200 mg/dL 223 (H) 190 Triglycerides, Nonfasting <150 mg/dL 173 (H) 122 HDL Cholesterol, Nonfasting >39 mg/dL 45 46 LDL Cholesterol, Nonfasting <100 mg/dL 143 (H) 120 (H) Non HDL Cholesterol, Nonfasting <130 mg/dL 178 (H) 144 (H) VLDL Cholesterol, Nonfasting <30 mg/dL 35 (H) 24 Total Chol/HDL Ratio, Nonfasting <5.10 mg/dL 4.96 4.13 LDL/HDL Ratio, Nonfasting <2.54 mg/dL 3.18 (H) 2.61 (H) PSA <2.60 ng/mL 3.54 (H) 3.75 (H) 3.92 (H) PSA, Percent Free % 23 26 Vitamin D 25 Hydroxy 31.0 - 80.0 ng/mL 44.6 37.8 Uric Acid 4.0 - 8.1 mg/dL 6.9 5.9 A/P ASSESSMENT/PLAN: 1. Medicare annual wellness visit, subsequent - ICD9: V70.0, ICD10: Z00.00 (primary diagnosis) - Counseled on healthy diet and regular exercise - Follow up for annual exam in one year - advised getting flue vaccine and consider getting either moderna or Pfizer then a booster. 2. Essential hypertension, benign - ICD9: 401.1, ICD10: I10 - suboptimal control - Continue current medication(s) - Recommended regular aerobic exercise. - Recommend home blood pressure monitoring, to bring results in on next visit - Recheck in 4 weeks, sooner should new symptoms or problems arise. - Goal of BP <130/80 3. Mixed hyperlipidemia - ICD9: 272.2, ICD10: E78.2 - suboptimal control - Continue current medication. - Begin treatment with ezetimibe (Zetia) 10 mg - Encouraged following a low fat, low cholesterol diet. - Discussed the benefits of regular aerobic exercise and weight loss. - Encouraged following a low carbohydrate, healthy oil intake diet. 4. Coronary artery disease due to lipid rich plaque - ICD9: 414.00, 414.3, ICD10: I25.10, I25.83 - clinically stable cont cardio f/u also 5. Anxiety - ICD9: 300.00, ICD10: F41.9 - stable no issues 6. Low vitamin D level - ICD9: 790.6, ICD10: R79.89 - controlled with replacement 7. Gout without tophus - ICD9: 274.9, ICD10: M10.9 - controlled. 8. Elevated PSA - ICD9: 790.93, ICD10: R97.20 - stable 9. Living will in place - ICD9: V49.89, ICD10: Z78.9 - patient to bring in copies 10. Advance directive discussed with patient - ICD9: V65.49, ICD10: Z71.89 - as per #9 Requested Prescriptions Signed Prescriptions Disp Refills clopidogrel (PLAVIX) 75 mg tablet 90 tablet 1 Sig: Take 1 tablet by mouth once daily. multivitamin tablet Sig: Take 1 tablet by mouth once daily. nitroglycerin sublingual (NITROQUICK) 0.4 mg SL tablet Sig: Dissolve 1 tablet under the tongue every 5 minutes as needed for chest pain. ezetimibe (ZETIA) 10 mg tablet 90 tablet 1 Sig: Take 1 tablet by mouth once daily. allopurinol (ZYLOPRIM) 100 mg tablet 90 tablet 1 Sig: TAKE 1 TABLET BY MOUTH ONCE DAILY. FOR GOUT. atorvastatin (LIPITOR) 80 mg tablet 90 tablet 1 Sig: TAKE 1 TABLET BY MOUTH ONCE DAILY. FOR CHOLESTEROL. clopidogrel (PLAVIX) 75 mg tablet 30 tablet 1 Sig: Take 1 tablet by mouth once daily. F/u [place] BP check in 4 weeks F/u 6 months routine check Lipid and LFT's and Free PSA. I spent a total of 40 minutes on the date of the service which included preparing to see the patient, [id number] patient care, completing clinical documentation, performing a medically appropriate examination, counseling and educating the patient/family/caregiver and ordering medications, tests, or procedures. Valeriano Choe MD [facility] Miscellaneous Notes* Telephone Encounter - Zenobia Porfirio - 04/12/2022 10:56 AM EDT Patient is wanting to have labs placed prior to seeing Dr. Choe. Please advise patient via mychart when labs are placed or if he needs to wait until after the appointment. Thank you, Zenobia Monroy documented [facility] Hospital Discharge instructions Patient Education 01/27/2022 12:26:05 3- Heart Cath/PCI radial (04/2018) (CUSTOM) HEART CATHETERIZATION/PCI (radial) Discharge Instructions DIET Drink plenty of fluids for the next 48 hours to help your kidneys flush the heart cath dye out of your system ACTIVITY For the next 48 hours: Do not deep bend the wrist Do not lift, push, or pull anything over 5 pounds Do not use the hand/arm to support your weight when rising from a chair or bed Do not drive For the next 7 days: Do not submerse your procedure site in water Do not swim, wash dishes, or take tub baths You may write, eat, type, and shower WOUND CARE You will go home with a dressing on your site. Remove dressing after 24 hours, shower, and apply Band-Aid. Keep a Band-Aid on your procedure site for the next 3-4 days Change the Band-Aid daily or if it gets wet/soiled AFTER YOU GO HOME, CALL YOUR DOCTOR FOR: Any increase in bruising or tenderness from the procedure site Any redness, pus, or other signs of infection at the site A temperature above 100.5 Severe pain at the site DIAL 911 AND RETURN TO THE HOSPITAL FOR: Any bleeding from the procedure site. The site may be bruised or tender, but it should not be bleeding at any time. If your site begins to bleed, hold firm pressure on it and dial 911 to return to the hospital Any increase in swelling at the procedure site. An increase in swelling could mean the area is bleeding under the skin. Hold firm pressure to the site and dial 911 to return to the hospital Document Released: 07/10/2006 Document Revised: 06/26/2013 Document Reviewed: 07/11/2014 ExitCare Patient Information 2015 [employer]. This information is not intended to replace advicegiven to you by your health care provider. Make sure you discuss any questions you have with your health care provider. 01/27/2022 09:38:22 Moderate Conscious Sedation, Adult, Care After Moderate Conscious Sedation, Adult, Care After These instructions provide you with information about caring for yourself after your procedure. Your health care provider may also give you more specific instructions. Your treatment has been plannedaccording to current medical practices, but problems sometimes occur. Call your health care provider if you have any problems or questions after your procedure. What can I expect after the procedure? After your procedure, it is common: To feel sleepy for several hours. To feel clumsy and have poor balance for several hours. To have poor judgment for several hours. To vomit if you eat too soon. Follow these instructions at home: For at least 24 hours after the procedure: Do not: ?Participate in activities where you could fall or become injured. ?Drive. ?Use heavy machinery. ?Drink alcohol. ?Take sleeping pills or medicines that cause drowsiness. ?Make important decisions or sign legal documents. ?Take care of children on your own. Rest. Eating and drinking Follow the diet recommended by your health care provider. If you vomit: ?Drink water, juice, or soup when you can drink without vomiting. ?Make sure you have little or no nausea before eating solid foods. General instructions Have a responsible adult stay with you until you are awake and alert. Take ixwl-fba-cqhwmhv and prescription medicines only as told by your health care provider. If you smoke, do not smoke without supervision. Keep all follow-up visits as told by your health care provider. This is important. Contact a health care provider if: You keep feeling nauseous or you keep vomiting. You feel light-headed. You develop a rash. You have a fever. Get help right away if: You have trouble breathing. This information is not intended to replace advice given to you by your health care provider. Make sure you discuss any questions you have with your health care provider. Document Released: 04/30/2014 Document Revised: 06/22/2018 Document Reviewed: 10/29/2016 Medical Connections Patient Education 2020 [employer]. Follow Up Care 01/17/2022 13:12:32 With:[facility] Address: [address] [place] [address]- When: Unknown Comments:[facility] will call you for an appointment in 1-2 weeks.Information given. Please call us with any questions. [phone] With:VALERIANO CHOE Address: [address] [place] [address]- AVIcode (1) When: Unknown With:FRANKLIN VAUGHN MD Address: [address] [facility] [place] [address] [place] [address]- When:03/11/2022 13:30:00 [facility] 07-07-2022 Summary of episode note Discharge Instructions Thank you for allowing [facility] to assist you with your healthcare needs. The following is importantdischarge information regarding your hospital visit. Your Care Team VALERIANO CHOE MD What to do next Scheduled Follow-Up Appointments [facility]11/2022 01:30 PM EDT [facility] Follow Up Appointments Follow Up with FRANKLIN VAUGHN MD When 03/11/2022 01:30 PM EDT Where: [address] [facility] [place] [address] [place] [address]- Follow Up with [facility] When Why: [facility] Rehab will call you for an appointment in 1-2 weeks.Information given. Please call us with any questions. [phone] Where: [address] [place] [address]- Follow Up with VALERIANO CHOE When In 0 days Where: [address] [place] [address]- AVIcode (1) The Following Activity and Diet Have Been Ordered for You Discharge Activity - Ordered -- Lifting Restricted less than 5 pounds, 01/27/22 9:02:00 EDT Discharge Diet - Ordered -- Type of Diet: Regular, 01/27/22 9:02:00 EDT Allergies hydroCHLOROthiazide Medications Please ask your primary doctor or pharmacist before taking any other medication not listed, including over the counter drugs, herbal medications, vitamins and or supplements as they may interact withyour home medications. What How Much When Instructions Last Dose Unchanged allopurinol (allopurinol 100 mg oral tablet) 1 tab(s) by mouth Once a day Unchanged ascorbic acid (ascorbic acid 500 mg oral capsule) 1 cap by mouth Once a day Unchanged aspirin (aspirin 81 mg oral delayed release tablet) 1 tab(s) by mouth Once a day Unchanged atenolol (atenolol 50 mg oral tablet) 1 tab(s) by mouth Once a day Unchanged atorvastatin (atorvastatin 80 mg oral tablet) 1 tab(s) by mouth Every day Unchanged cholecalciferol (cholecalciferol 125 mcg (5000 intl units) oral capsule) 1 cap by mouth Once a day Unchanged clopidogrel (Plavix 75 mg oral tablet) 1 tab(s) by mouth Once a day Unchanged diphenhydrAMINE (Benadryl 25 mg oral tablet) 1 tab(s) by mouth Every 6 hours as needed for for allergy symptoms Unchanged doxepin (doxepin 25 mg oral capsule) 1 cap by mouth Daily at bedtime Unchanged multivitamin (Vitamin B Complex oral tablet) 1 tab(s) by mouth Unchanged nitroGLYcerin (nitroglycerin 0.4 mg sublingual tablet) 1 tab(s) under the tongue Every 5 minutes as needed for Chest pain Unchanged omega-3 polyunsaturated fatty acids (Fish Oil 1000 mg oral capsule) 1 cap by mouth Once a day Unchanged ranolazine (ranolazine 500 mg oral tablet, extended release) 1 tab(s) by mouth Two (2) times a day Please take this list to your next doctor s visit. Bring all medications you take, including over the counter medications, herbals and other supplements with you to your doctor s visit. Patients and families are reminded to discard old lists and to update any records with all medication providers or retail pharmacies. Education Materials HEART CATHETERIZATION/PCI (radial) Discharge Instructions DIET Drink plenty of fluids for the next 48 hours to help your kidneys flush the heart cath dye out of your system ACTIVITY For the next 48 hours: Do not deep bend the wrist Do not lift, push, or pull anything over 5 pounds Do not use the hand/arm to support your weight when rising from a chair or bed Do not drive For the next 7 days: Do not submerse your procedure site in water Do not swim, wash dishes, or take tub baths You may write, eat, type, and shower WOUND CARE You will go home with a dressing on your site. Remove dressing after 24 hours, shower, and apply Band-Aid. Keep a Band-Aid on your procedure site for the next 3-4 days Change the Band-Aid daily or if it gets wet/soiled AFTER YOU GO HOME, CALL YOUR DOCTOR FOR: Any increase in bruising or tenderness from the procedure site Any redness, pus, or other signs of infection at the site A temperature above 100.5 Severe pain at the site DIAL 911 AND RETURN TO THE HOSPITAL FOR: Any bleeding from the procedure site. The site may be bruised or tender, but it should not be bleeding at any time. If your site begins to bleed, hold firm pressure on it and dial 911 to return to the hospital Any increase in swelling at the procedure site. An increase in swelling could mean the area is bleeding under the skin. Hold firm pressure to the site and dial 911 to return to the hospital Document Released: 07/10/2006 Document Revised: 06/26/2013 Document Reviewed: 07/11/2014 ExitCare Patient Information 2015 [employer]. This information is not intended to replace advicegiven to you by your health care provider. Make sure you discuss any questions you have with your health care provider. Moderate Conscious Sedation, Adult, Care After These instructions provide you with information about caring for yourself after your procedure. Your health care provider may also give you more specific instructions. Your treatment has been plannedaccording to current medical practices, but problems sometimes occur. Call your health care provider if you have any problems or questions after your procedure. What can I expect after the procedure? After your procedure, it is common: To feel sleepy for several hours. To feel clumsy and have poor balance for several hours. To have poor judgment for several hours. To vomit if you eat too soon. Follow these instructions at home: For at least 24 hours after the procedure: Do not: ? Participate in activities where you could fall or become injured. ? Drive. ? Use heavy machinery. ? Drink alcohol. ? Take sleeping pills or medicines that cause drowsiness. ? Make important decisions or sign legal documents. ? Take care of children on your own. Rest. Eating and drinking Follow the diet recommended by your health care provider. If you vomit: ? Drink water, juice, or soup when you can drink without vomiting. ? Make sure you have little or no nausea before eating solid foods. General instructions Have a responsible adult stay with you until you are awake and alert. Take fkvr-vpm-fccfupw and prescription medicines only as told by your health care provider. If you smoke, do not smoke without supervision. Keep all follow-up visits as told by your health care provider. This is important. Contact a health care provider if: You keep feeling nauseous or you keep vomiting. You feel light-headed. You develop a rash. You have a fever. Get help right away if: You have trouble breathing. This information is not intended to replace advice given to you by your health care provider. Make sure you discuss any questions you have with your health care provider. Document Released: 04/30/2014 Document Revised: 06/22/2018 Document Reviewed: 10/29/2016 [employer] Patient Education 2020 [employer]ctions [employer] Additional Information VACCINATE! IT SAVES LIVES! Members of the community who have not yet received the COVID-19 vaccine and would like to receive it can visit one of [facility] vaccine clinics. There are many vaccine clinic locations within the [facility]. For locations and available times, please visit [email or web address] It is important to note that some COVID mobile vaccine clinics are held outdoors and may be canceled in rainy or stormy conditions. To learn more about pediatric vaccinations (ages 5-11), we invite you to visit the [facility] webpage. [email or web address]/[email or web address]-[email or web address] stions.htmlTo learn more about the COVID-19 vaccine, we invite you to visit the [employer] website for a list of frequently asked questions. [email or web address]-[email or web address]-Ygwulche/crzza-Jjqeltf-Gpikxixhud _[email or web address]-Questions.pdf [facility] Patient Portal Access Instructions: Stay connected with your healthcare team and access your personal medical information anytime with the [facility] Patient Portal.If you would like a full copy of your medical records, please contact the [facility] Medical Records Department, Monday through Monday between 8a.m. and 4:30p.m. Please follow the directions below to access the portal: 1.Access the email account you provided upon registration to the [facility].2.Look for an invitation email from [facility].3.Open the email and access the invitation link: Accept [facility] to [facility]4.Fill in the required shaikh to create your account. Sign into www.[employer] with your username and password that you created in the above steps to stay up to date. You can then view a summary of results, a summary of your visits, and the ability to download your summaries to your computer or send the information securely to a physician. Remember that your healthcare information is confidential, so carefully consider who you will allow to register on the [facility] Patient Portal for access to your information. You can also access the [employer] Patient Portal on the [employer] cristopher. Simply click on Health Records under [employer] and then click on the [facility] logo. HOW TO SAFELY DISPOSE OF PRESCRIPTION MEDICATIONS Please use one of the following methods to safely dispose of your unused medications. 1.Use a drug disposal kit: the drug disposal pouch allows you to safely discard your old and unuseddrugs. Ask your nurse to give you one when you are discharged.2.Visit a local take-back location: Many local pharmacies and police departments have programs that collect old and unwanted prescriptiondrugs. Call your local pharmacy or go to http://bit.MobileSpan/1H3Jy0e to find one close to you.3.Make use of household items: Use cat litter or old coffee grounds to dispose medications if other options arenot available. Mix your drugs with these household products, seal them in an airtight container andthrow it into the garbage. Call [facility]: [phone] to be sure your drugs can be disposed of in this way. Some medicines may require a different approach.4.Never flush your medications down the toilet. IF YOU HAVE BEEN PRESCRIBED AN OPIOID FOR PAIN If you have been prescribed an opioid (such as hydrocodone, oxycodone or morphine), it is critical to understand the possible side effects and risks of opioid pain medications. Even when taken as directed, opioids can have several side effects including: Tolerance, meaning you might need to take more of a medication for the same pain relief. Nausea, vomiting and/or constipation. Sleepiness, dizziness, dry mouth, confusion, depression or itching. Physical dependence, meaning you have withdrawal symptoms when a medication is stopped, can develop within a few days. KNOW YOUR RESPONSIBILITIES It is important to know exactly how much and how often to take the opioid pain medications you are prescribed. Never take opioids in higher amounts or more often than prescribed. Do not combine opioids with alcohol or other drugs that cause drowsiness, such as benzodiazepines, also known as benzos, including diazepam and alprazolam, muscle relaxants or sleep aids. Never sell or share prescription opioids. This is illegal. Store opioids in a secure place and out of reach of others (including children, family, friends and visitors). The last page of this document has been signed and retained as a CHART COPY. Signatures Patient Education Materials 3- Heart Cath/PCI radial (04/2018) (CUSTOM) Moderate Conscious Sedation, Adult, Care After Medication Leaflets My discharge plan and instructions have been reviewed and explained to me and ILIVAN WAYNE J understand my current condition and have read and understand these discharge instructions. I have received a written copy of the plan/instructions. If I have questions, I am aware that I should contact my doctor. Patient/Sled Maker Signature: Date/Time: Relationship to Patient: Witness Name/Signature: [id number] Miscellaneous Notes* Telephone Encounter - Randa Bowen Coord - 12/31/2021 4:26 PM EDT [facility] Miscellaneous Notes* Telephone Encounter - Valeriano Choe MD - 12/02/2021 5:26 PM EDT Noted. * Telephone Encounter - Monserrat Soriano MA - 12/02/2021 4:59 PM EDT Contacted [facility] requested hospital documentation. Monserrat Soriano MA * Telephone Encounter - Nara Yates RN - 12/02/2021 4:18 PM EDT Patient returned call. He was sent by [employer] to [facility] from work then to [facility] on Wednesday 11/29. 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 Hewas discharged home on 12/01. He has an appointment with a corporate job titles in [place] on 12/28. He was discharged on Brilinta and NTG prn. Lisinopril and Amlodipine were discontinued. Atenolol was decreased. He says he's doing well. Nara Yates RN * Telephone Encounter - Monserrat Soriano MA - 12/02/2021 3:46 PM EDT Left message for patient to contact office as patient was scheduled for a 20 minutes hospital visit. This should have been scheduled for 40 minutes. We need to find out which hospital he was seen in. Does he have follow up appointments with Cardiology? Monserrat Soriano MA' [facility] Hospital Discharge instructions Patient Education 12/01/2021 12:31:14 Hypertension, Adult, Vmzv-wn-Tlrs Hypertension, Adult Hypertension is another name for high blood pressure. High blood pressure forces your heart to workharder to pump blood. This can cause problems over time. There are two numbers in a blood pressure reading. There is a top number (systolic) over a bottom number (diastolic). It is best to have a blood pressure that is below 120/80. Healthy choices can help lower your blood pressure, or you may need medicine to help lower it. What are the causes? The cause of this condition is not known. Some conditions may be related to high blood pressure. What increases the risk? Smoking. Having type 2 diabetes mellitus, high cholesterol, or both. Not getting enough exercise or physical activity. Being overweight. Having too much fat, sugar, calories, or salt (sodium) in your diet. Drinking too much alcohol. Having long-term (chronic) kidney disease. Having a family history of high blood pressure. Age. Risk increases with age. Race. You may be at higher risk if you are . Gender. Men are at higher risk than women before age 45. After age 65, women are at higher risk than men. Having obstructive sleep apnea. Stress. What are the signs or symptoms? High blood pressure may not cause symptoms. Very high blood pressure (hypertensive crisis) may cause: ?Headache. ?Feelings of worry or nervousness (anxiety). ?Shortness of breath. ?Nosebleed. ?A feeling of being sick to your stomach (nausea). ?Throwing up (vomiting). ?Changes in how you see. ?Very bad chest pain. ?Seizures. How is this treated? This condition is treated by making healthy lifestyle changes, such as: ?Eating healthy foods. ?Exercising more. ?Drinking less alcohol. Your health care provider may prescribe medicine if lifestyle changes are not enough to get your blood pressure under control, and if: ?Your top number is above 130. ?Your bottom number is above 80. Your personal target blood pressure may vary. Follow these instructions at home: Eating and drinking If told, follow the DASH eating plan. To follow this plan: ?Fill one half of your plate at each meal with fruits and vegetables. ?Fill one fourth of your plate at each meal with whole grains. Whole grains include whole-wheat pasta, brown rice, and whole-grain bread. ?Eat or drink low-fat dairy products, such as skim milk or low-fat yogurt. ?Fill one fourth of your plate at each meal with low-fat (lean) proteins. Low- fat proteins include fish, chicken without skin, eggs, beans, and tofu. ?Avoid fatty meat, cured and processed meat, or chicken with skin. ?Avoid pre-made or processed food. Eat less than 1,500 mg of salt each day. Do not drink alcohol if: ?Your doctor tells you not to drink. ?You are , may be , or are planning to become . If you drink alcohol: ?Limit how much you use to: ?0 1 drink a day for women. ?0 2 drinks a day for men. ?Be aware of how much alcohol is in your drink. In the [place] one drink equals one 12 oz bottle of beer (355 mL), one 5 oz glass of wine (148 mL), or one 1 oz glass of hard liquor (44 mL). Lifestyle Work with your doctor to stay at a healthy weight or to lose weight. Ask your doctor what the best weight is for you. Get at least 30 minutes of exercise most days of the week. This may include walking, swimming, or biking. Get at least 30 minutes of exercise that strengthens your muscles (resistance exercise) at least 3 days a week. This may include lifting weights or doing Pilates. Do not use any products that contain nicotine or tobacco, such as cigarettes, e- cigarettes, and chewing tobacco. If you need help quitting, ask your doctor. Check your blood pressure at home as told by your doctor. Keep all follow-up visits as told by your doctor. This is important. Medicines Take pdko-xsh-meugmim and prescription medicines only as told by your doctor. Follow directions carefully. Do not skip doses of blood pressure medicine. The medicine does not work as well if you skip doses.Skipping doses also puts you at risk for problems. Ask your doctor about side effects or reactions to medicines that you should watch for. Contact a doctor if you: Think you are having a reaction to the medicine you are taking. Have headaches that keep coming back (recurring). Feel dizzy. Have swelling in your ankles. Have trouble with your vision. Get help right away if you: Get a very bad headache. Start to feel mixed up (confused). Feel weak or numb. Feel faint. Have very bad pain in your: ?Chest. ?Belly (abdomen). Throw up more than once. Have trouble breathing. Summary Hypertension is another name for high blood pressure. High blood pressure forces your heart to work harder to pump blood. For most people, a normal blood pressure is less than 120/80. Making healthy choices can help lower blood pressure. If your blood pressure does not get lower with healthy choices, you may need to take medicine. This information is not intended to replace advice given to you by your health care provider. Make sure you discuss any questions you have with your health care provider. Document Released: 12/26/2008 Document Revised: 03/20/2019 Document Reviewed: 03/20/2019 Medical Connections Patient Education 2020 [employer]. 12/01/2021 12:31:01 Heart Attack, Owgf-db-Xezc Heart Attack A heart attack occurs when blood and oxygen supply to the heart is cut off. A heart attack causes damage to the heart that cannot be fixed. A heart attack is also called a myocardial infarction, or PR. If you think you are having a heart attack, do not wait to see if the symptoms will go away. Get medical help right away. What are the causes? This condition may be caused by: A fatty substance (plaque) in the blood vessels (arteries). This can block the flow of blood to theheart. A blood clot in the blood vessels that go to the heart. The blood clot blocks blood flow. Low blood pressure. An abnormal heartbeat. Some diseases, such as problems in red blood cells (anemia)orproblems in breathing (respiratory failure). Tightening (spasm) of a blood vessel that cuts off blood to the heart. A tear in a blood vessel of the heart. High blood pressure. What increases the risk? The following factors may make you more likely to develop this condition: Aging. The older you are, the higher your risk. Having a personal or family history of chest pain, heart attack, stroke, or narrowing of the arteries in the legs, arms, head, or stomach (peripheral artery disease). Being male. Smoking. Not getting regular exercise. Being overweight or obese. Having high blood pressure. Having high cholesterol. Having diabetes. Drinking too much alcohol. Using illegal drugs, such as cocaine or methamphetamine. What are the signs or symptoms? Symptoms of this condition include: Chest pain. It may feel like: ?Crushing or squeezing. ?Tightness, pressure, fullness, or heaviness. Pain in the arm, neck, jaw, back, or upper body. Shortness of breath. Heartburn. Upset stomach (indigestion). Feeling like you may vomit (nauseous). Cold sweats. Feeling tired. Sudden light-headedness. How is this treated? A heart attack must be treated as soon as possible. Treatment may include: Medicines to: ?Break up or dissolve blood clots. ?Thin blood and help prevent blood clots. ?Treat blood pressure. ?Improve blood flow to the heart. ?Reduce pain. ?Reduce cholesterol. Procedures to widen a blocked artery and keep it open. Open heart surgery. Receiving oxygen. Making your heart strong again (cardiac rehabilitation) through exercise, education, and counseling. Follow these instructions at home: Medicines Take [id number] and prescription medicines only as told by your doctor. You may need to take medicine: ?To keep your blood from clotting too easily. ?To control blood pressure. ?To lower cholesterol. ?To control heart rhythms. Do not take these medicines unless your doctor says it is okay: ?NSAIDs, such as ibuprofen. ?Supplements that have vitamin A, vitamin E, or both. ?Hormone replacement therapy that has estrogen with or without progestin. Lifestyle Do not use any products that have nicotine or tobacco, such as cigarettes, e- cigarettes, and chewing tobacco. If you need help quitting, ask your doctor. Avoid secondhand smoke. Exercise regularly. Ask your doctor about a cardiac rehab program. Eat heart-healthy foods. Your doctor will tell you what foods to eat. Stay at a healthy weight. Lower your stress level. Do not use illegal drugs. Alcohol use Do not drink alcohol if: ?Your doctor tells you not to drink. ?You are , may be , or are planning to become . If you drink alcohol: ?Limit how much you use to: ?0 1 drink a day for women. ?0 2 drinks a day for men. ?Know how much alcohol is in your drink. In the [place] one drink equals one 12 oz bottle of beer (355 mL), one 5 oz glass of wine (148 mL), or one 1 oz glass of hard liquor (44 mL). General instructions Work with your doctor to treat other problems you may have, such as diabetes or high blood pressure. Get screened for depression. Get treatment if needed. Keep your vaccines up to date. Get the flu shot (influenza vaccine) every year. Keep all follow-up visits as told by your doctor. This is important. Contact a doctor if: You feel very sad. You have trouble doing your daily activities. Get help right away if: You have sudden, unexplained discomfort in your chest, arms, back, neck, jaw, or upper body. You have shortness of breath. You have sudden sweating or clammy skin. You feel like you may vomit. You vomit. You feel tired or weak. You get light-headed or dizzy. You feel your heart beating fast. You feel your heart skipping beats. You have blood pressure that is higher than 180/120. These symptoms may be an emergency. Do not wait to see if the symptoms will go away. Get medical help right away. Call your local emergency services (911 in the [place] Do not drive yourself to the hospital. Summary A heart attack occurs when blood and oxygen supply to the heart is cut off. Do not take NSAIDs unless your doctor says it is okay. Do not smoke. Avoid secondhand smoke. Exercise regularly. Ask your doctor about a cardiac rehab program. This information is not intended to replace advice given to you by your health care provider. Make sure you discuss any questions you have with your health care provider. Document Released: 01/08/2013 Document Revised: 10/21/2019 Document Reviewed: 10/21/2019 [employer] Connections Patient Education 2020 [employer]. 12/01/2021 12:30:46 Atrial Fibrillation, [id number] Atrial Fibrillation Atrial fibrillation is a condition that causes your heart to beat irregularly. It may also cause your heart to beat faster than normal. Atrial fibrillation can prevent your heart from pumping blood normally. It increases your risk of stroke and heart problems. HOME CARE Take medications as told by your doctor. Only take medications that your doctor says are safe. Some medications can make the condition worseor happen again. If blood thinners were prescribed by your doctor, take them exactly as told. Too much can cause bleeding. Too little and you will not have the needed protection against stroke and other problems. Perform blood tests at home if told by your doctor. Perform blood tests exactly as told by your doctor. Do not drink alcohol. Do not drink beverages with caffeine such as coffee, soda, and some teas. Maintain a healthy weight. Do not use diet pills unless your doctor says they are safe. They may make heart problems worse. Follow diet instructions as told by your doctor. Exercise regularly as told by your doctor. Keep all follow-up appointments. GET HELP RIGHT AWAY IF: You have chest or belly (abdominal) pain. You feel sick to your stomach (nauseous) You suddenly have swollen feet and ankles. You feel dizzy. You face, arms, or legs feel numb or weak. There is a change in your vision or speech. You notice a change in the speed, rhythm, or strength of your heartbeat. You suddenly begin peeing (urinating) more often. You get tired more easily when moving or exercising. MAKE SURE YOU: Understand these instructions. Will watch your condition. Will get help right away if you are not doing well or get worse. Document Released: 04/18/2009 Document Revised: 11/04/2013 Document Reviewed: 08/20/2013 ExitCare Patient Information 2015 [employer]. This information is not intended to replace advicegiven to you by your health care provider. Make sure you discuss any questions you have with your health care provider. Follow Up Care 11/29/2021 15:20:14 With:TESSA GUZMAN MD, Thoracic Service, Vascular Service Address: [address] [place] [address] [address] [facility] [place] [address]- [phone] When:12/28/2021 15:00:00 With:CHRISTINE SNYDER MD Address: [address] [place] [address] [address] [facility] [place] [address]- [phone] When:12/28/2021 11:30:00 Comments:THIS APPOINTMENT WILL BE WITH PONCHO BYRNE With:Cardiac Rehabilitation Address: [address] [place] [address]- When: Unknown Comments:Cardiac Rehab will call you for an appointment in 1-2 weeks.Information given. Please call us with any questions. [phone] With:VALERIANO CHOE Address: [address] [place] [address]- Business (1) When:1-2 days [facility] 05-09-2022 Evaluation + Plan noteExtracted from: Title:History and Physical Author:EMPERATRIZ WYNN DO Date:11/29/[address] elevation myocardia l infarction (STEMI) Proceed with left heart catheterization, urgent Consent was obtained Left heart catheterization revealed 100% occlusion of the proximal to mid RCA that appeared to be the culprit lesion, he had 100% proximal left circumflex with distal reconstitution of the OM's and distal circumflex, LAD was diffusely diseased and was about 90% stenosed at the very distal end however had a very good target in the mid portion Culprit RCA, status post PCI x1 MIRANDA We will give him Brilinta Dr. Guzman came down the stairs to evaluate patient in [place] for future outpatient bypass after this initial infarct Start on aspirin, high intensity statin, ACEI and or beta-iban if BP/renal function will tolerate - currently there are no lab results (pending) Check ECHO, A1c, lipid panel, TSH, complete metabolic panel, BNP, lactic acid and repeat. Also check magnesium, daily CBC/BMP. Repeat EKG post cath and in morning Recommendations pending outcome of LHC/intervention needed STAT EKG with any chest pain post LHC, monitor for signs of bleeding Will need cardiac rehab, smoking cessation (if applicable) and lifestyle modification counseling Atrial fibrillation with slow ventricular response HR increased to 60s after pci, hard to decern p waves, will get post ekg HTN (hypertension) resume home medications as reasonable I have reviewed all available EKGs, echocardiograms, stress test and cardiac catheterizations. Relevant laboratory data have also been reviewed. This note was transcribed via voice recognition software. Please forgive any errors or typos, resulting from the use of this technology. Dr. Lisa Wynn Interventional Neck Cutter, PGY 7 Pager: [phone] Please call with any questions or concerns Attending for this patient encounter is Dr. Nicolas Future Appointments Appointment Date:12/28/2021 11:30:00 AM Scheduled Provider:CATY MACARIO Location:[facility] Appointment Type:CV OV Hospital Follow Up Appointment Date:12/28/2021 03:00:00 PM Scheduled Provider:TESSA GUZMAN MD Location:[facility] Appointment Type:CTS OV [facility] 01-09-2019 History of Past illness Narrative* Problem Noted Date Resolved Date High serum parathyroid hormone (PTH) 08/01/2018 08/12/2019 Elevated PTHrP level 07/21/2018 08/12/2019 Impaired fasting glucose 09/03/2017 019 Abrasion of left ear canal 08/28/201708/12 Stool guaiac positive 01/19/2016 08/01/2018 Hyperuricemia 10/30/2014 08/12/2019 Neurodermatitis 07/12/2011 08/01/2018 documented as of this encounter (statuses as of 12/02/2021) [facility] History of Past illness Narrative* Problem Noted Date Resolved Date High serum parathyroid hormone (PTH) 08/01/2018 08/12/2019 Elevated PTHrP level 07/21/2018 08/12/2019 Impaired fasting glucose 09/03/2017 019 Abrasion of left ear canal 08/28/201708/12 Stool guaiac positive 01/19/2016 08/01/2018 Hyperuricemia 10/30/2014 08/12/2019 Neurodermatitis 07/12/2011 08/01/2018 documented as of this encounter (statuses as of 12/31/2021) [facility] History of Past illness Narrative* Problem Noted Date Resolved Date High serum parathyroid hormone (PTH) 08/01/2018 08/12/2019 Elevated PTHrP level 07/21/2018 08/12/2019 Impaired fasting glucose 09/03/2017 019 Abrasion of left ear canal 08/28/201708/12 Stool guaiac positive 01/19/2016 08/01/2018 Hyperuricemia 10/30/2014 08/12/2019 Neurodermatitis 07/12/2011 08/01/2018 documented as of this encounter (statuses as of 01/02/2022) [facility] History of Past illness Narrative* Problem Noted Date Resolved Date High serum parathyroid hormone (PTH) 08/01/2018 08/12/2019 Elevated PTHrP level 07/21/2018 08/12/2019 Impaired fasting glucose 09/03/2017 019 Abrasion of left ear canal 08/28/201708/12 Stool guaiac positive 01/19/2016 08/01/2018 Hyperuricemia 10/30/2014 08/12/2019 Neurodermatitis 07/12/2011 08/01/2018 documented as of this encounter (statuses as of 04/12/2022) [facility] History of Past illness Narrative* Problem Noted Date Resolved Date High serum parathyroid hormone (PTH) 08/01/2018 08/12/2019 Elevated PTHrP level 07/21/2018 08/12/2019 Impaired fasting glucose 09/03/2017 019 Abrasion of left ear canal 08/28/201708/12 Stool guaiac positive 01/19/2016 08/01/2018 Hyperuricemia 10/30/2014 08/12/2019 Neurodermatitis 07/12/2011 08/01/2018 documented as of this encounter (statuses as of 04/19/2022) [facility] History of Past illness Narrative* Problem Noted Date Resolved Date High serum parathyroid hormone (PTH) 08/01/2018 08/12/2019 Elevated PTHrP level 07/21/2018 08/12/2019 Impaired fasting glucose 09/03/2017 019 Abrasion of left ear canal 08/28/201708/12 Stool guaiac positive 01/19/2016 08/01/2018 Hyperuricemia 10/30/2014 08/12/2019 Neurodermatitis 07/12/2011 08/01/2018 documented as of this encounter (statuses as of 09/06/2022) [facility] History of Past illness Narrative* Problem Noted Date Resolved Date High serum parathyroid hormone (PTH) 08/01/2018 08/12/2019 Elevated PTHrP level 07/21/2018 08/12/2019 Impaired fasting glucose 09/03/2017 019 Abrasion of left ear canal 08/28/201708/12 Stool guaiac positive 01/19/2016 08/01/2018 Hyperuricemia 10/30/2014 08/12/2019 Neurodermatitis 07/12/2011 08/01/2018 documented as of this encounter (statuses as of 09/06/2022) [facility] History of Past illness Narrative* Problem Noted Date Resolved Date High serum parathyroid hormone (PTH) 08/01/2018 08/12/2019 Elevated PTHrP level 07/21/2018 08/12/2019 Impaired fasting glucose 09/03/2017 019 Abrasion of left ear canal 08/28/201708/12 Stool guaiac positive 01/19/2016 08/01/2018 Hyperuricemia 10/30/2014 08/12/2019 Neurodermatitis 07/12/2011 08/01/2018 documented as of this encounter (statuses as of 09/12/2022) [facility] History of Past illness Narrative* Problem Noted Date Resolved Date High serum parathyroid hormone (PTH) 08/01/2018 08/12/2019 Elevated PTHrP level 07/21/2018 08/12/2019 Impaired fasting glucose 09/03/2017 019 Abrasion of left ear canal 08/28/201708/12 Stool guaiac positive 01/19/2016 08/01/2018 Hyperuricemia 10/30/2014 08/12/2019 Neurodermatitis 07/12/2011 08/01/2018 documented as of this encounter (statuses as of 09/16/2022) [facility] History of Past illness Narrative* Problem Noted Date Resolved Date High serum parathyroid hormone (PTH) 08/01/2018 08/12/2019 Elevated PTHrP level 07/21/2018 08/12/2019 Impaired fasting glucose 09/03/2017 019 Abrasion of left ear canal 08/28/201708/12 Stool guaiac positive 01/19/2016 08/01/2018 Hyperuricemia 10/30/2014 08/12/2019 Neurodermatitis 07/12/2011 08/01/2018 documented as of this encounter (statuses as of 09/16/2022) [facility] History of Past illness Narrative* Problem Noted Date Resolved Date High serum parathyroid hormone (PTH) 08/01/2018 08/12/2019 Elevated PTHrP level 07/21/2018 08/12/2019 Impaired fasting glucose 09/03/2017 019 Abrasion of left ear canal 08/28/201708/12 Stool guaiac positive 01/19/2016 08/01/2018 Hyperuricemia 10/30/2014 08/12/2019 Neurodermatitis 07/12/2011 08/01/2018 documented as of this encounter (statuses as of 10/12/2022) [facility] History of Past illness Narrative* Problem Noted Date Resolved Date High serum parathyroid hormone (PTH) 08/01/2018 08/12/2019 Elevated PTHrP level 07/21/2018 08/12/2019 Impaired fasting glucose 09/03/2017 019 Abrasion of left ear canal 08/28/201708/12 Stool guaiac positive 01/19/2016 08/01/2018 Hyperuricemia 10/30/2014 08/12/2019 Neurodermatitis 07/12/2011 08/01/2018 documented as of this encounter (statuses as of 10/13/2022) [facility] History of Past illness Narrative* Problem Noted Date Resolved Date High serum parathyroid hormone (PTH) 08/01/2018 08/12/2019 Elevated PTHrP level 07/21/2018 08/12/2019 Impaired fasting glucose 09/03/2017 019 Abrasion of left ear canal 08/28/201708/12 Stool guaiac positive 01/19/2016 08/01/2018 Hyperuricemia 10/30/2014 08/12/2019 Neurodermatitis 07/12/2011 08/01/2018 documented as of this encounter (statuses as of 10/21/2022) [facility] History of Past illness Narrative* Problem Noted Date Resolved Date High serum parathyroid hormone (PTH) 08/01/2018 08/12/2019 Elevated PTHrP level 07/21/2018 08/12/2019 Impaired fasting glucose 09/03/2017 019 Abrasion of left ear canal 08/28/201708/12 Stool guaiac positive 01/19/2016 08/01/2018 Hyperuricemia 10/30/2014 08/12/2019 Neurodermatitis 07/12/2011 08/01/2018 documented as of this encounter (statuses as of 11/11/2022) [facility] History of Past illness Narrative* Problem Noted Date Resolved Date High serum parathyroid hormone (PTH) 08/01/2018 08/12/2019 Elevated PTHrP level 07/21/2018 08/12/2019 Impaired fasting glucose 09/03/2017 019 Abrasion of left ear canal 08/28/201708/12 Stool guaiac positive 01/19/2016 08/01/2018 Hyperuricemia 10/30/2014 08/12/2019 Neurodermatitis 07/12/2011 08/01/2018 documented as of this encounter (statuses as of 11/15/2022) [facility] History of Past illness Narrative* Problem Noted Date Resolved Date High serum parathyroid hormone (PTH) 08/01/2018 08/12/2019 Elevated PTHrP level 07/21/2018 08/12/2019 Impaired fasting glucose 09/03/2017 019 Abrasion of left ear canal 08/28/201708/12 Stool guaiac positive 01/19/2016 08/01/2018 Hyperuricemia 10/30/2014 08/12/2019 Neurodermatitis 07/12/2011 08/01/2018 documented as of this encounter (statuses as of 12/20/2022) [facility] History of Past illness Narrative* Problem Noted Date Resolved Date High serum parathyroid hormone (PTH) 08/01/2018 08/12/2019 Elevated PTHrP level 07/21/2018 08/12/2019 Impaired fasting glucose 09/03/2017 019 Abrasion of left ear canal 08/28/201708/12 Stool guaiac positive 01/19/2016 08/01/2018 Hyperuricemia 10/30/2014 08/12/2019 Neurodermatitis 07/12/2011 08/01/2018 documented as of this encounter (statuses as of 01/06/2023) [facility] No data available for this section [facility] Evaluation + Plan note Future Appointments Appointment Date:03/11/2022 01:30:00 PM Scheduled Provider: Location:[facility] Appointment Type:CV OV Hospital Follow Up [facility] Evaluation note* Diagnosis Myocardial infarction involving left anterior descending (LAD) coronary artery, unspecified PR type (HCC)- Primary [facility]* Diagnosis Coronary artery disease due to lipid rich plaque- Primary Essential hypertension, benign Mixed hyperlipidemia Gout without tophus Low vitamin D level Elevated PSA Elevated prostate specific antigen (PSA) Medication management Encounter for long-term (current) use of other medications documented in this encounter [facility] [place]* Diagnosis Medicare annual wellness visit, subsequent- Primary Routine general medical examination at a health care facility Essential hypertension, benign Mixed hyperlipidemia Coronary artery disease due to lipid rich plaque Anxiety Anxiety state, unspecified Low vitamin D level Gout without tophus Elevated PSA Elevated prostate specific antigen (PSA) Living will in place Advance directive discussed with patient Other specified counseling [facility] this encounter [facility]* Diagnosis NSTEMI (non-ST elevated myocardial infarction) (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 Situational depression Adjustment disorder with depressed mood Alcohol abuse Alcohol abuse, unspecified Anxiety Anxiety state, unspecified Elevated PSA Elevated prostate specific antigen (PSA) Lower GI bleed Hemorrhage of gastrointestinal tract, unspecified Anemia, unspecified type Prostate disorder Unspecified disorder of prostate Low vitamin D level Gout without tophus documented in this encounter [facility]* Diagnosis Medicare annual wellness visit, subsequent- Primary Routine general medical examination at a health care facility Essential hypertension, benign Mixed hyperlipidemia Coronary artery disease due to lipid rich plaque Anxiety Anxiety state, unspecified Situational depression Adjustment disorder with depressed mood Alcohol abuse Alcohol abuse, unspecified Gout without tophus Low vitamin D level Elevated PSA Elevated prostate specific antigen (PSA) Balance problems Other symptoms involving nervous and musculoskeletal systems Numbness and tingling of both feet Atrophy of muscle of right shoulder Atrophy of muscle of other site Advance directive discussed with patient Other specified counseling Need for vaccination Need for prophylactic vaccination and inoculation against unspecified single disease Excessive ear wax, right [facility] [place] [facility]* Diagnosis Essential hypertension, benign- Primary Low serum vitamin B12 Anxiety Anxiety state, unspecified documented in this encounter [facility] note* Diagnosis Other specified disorders of kidney and ureter- Primary Essential hypertension, benign Kidney lesion Unspecified disorder of kidney and ureter documented in this encounter [facility] note* Diagnosis Other specified disorders of kidney and ureter Kidney lesion Unspecified disorder of kidney and ureter documented in this encounter [facility] Discharge instructions No data available for this section [facility] Note* FRANKLIN VAUGHN MD: SIGN, VERIFY Event Display: Percut Transluminal Coronary Angioplasty Authored Date: [facility] Progress note No data available for this section [facility] Reason for Referral Specialty Diagnoses / Procedures Referred By Sarkis gorman Referred To Contact CT IMAGING Diagnoses Other specified disorders of kidney and ureter Kidney lesion Procedures CT KIDNEY WO/W IVCON CT ABDOMEN W & W/O CONTRAST Valeriano Choe MD [address] [place] [id number] [id number] Referral ID Status Reason Start Date Expiration Date Visits Requested Visits Authorized [id number] Authorized Auto-Generat ed Referral 08/21/2023 09/19/2024 1 1 Specialty Diagnoses / Procedures Referred By Sarkis gorman Referred To Contact Neurology Diagnoses Balance problems Atrophy of muscle of right shoulder Atrophy of muscle of other site Procedures CONSULT TO NEUROLOGY OFFICE/OUTPATIENT [facility] 60-74 MINUTES Valeriano Choe MD [address] [place] [address] Referral ID Status Reason Start Date Expiration Date Visits Requested Visits Authorized [id number] Pending Review PCP Requested Referral 04/20/2023 04/19/2024 1 1 Specialty Diagnoses / Procedures Referred By Sarkis t Referred To Contact Cardiology Diagnoses Myocardial infarction involving left anterior descending (LAD) coronary artery, unspecified PR type (HCC) Procedures CONSULT TO CARDIOLOGY OFFICE/OUTPATIENT [facility] HIGH MDM 60-74 MINUTES Tessa Donato, DO [address] [facility] [address] [place] [address] Referral ID Status Reason Start Date Expiration Date Visits Requested Visits Authorized [id number] Pending Review PCP Requested Referral 01/01/2022 01/01/2023 1 1 Summary Purpose Family History No Family History Records FoundNo Family History Records FoundNo Family History Records Found Advance Directives No Advanced Directives Records FoundNo Advanced Directives Records FoundNo Advanced Directives Records Found Additional Source Comments Care Team (unrecognized sect ion and content) Dobie Man Relationship Specialty Start Date End Date Valeriano Choe MD [address] [place] [address] PCP - General Family Practice 03/15/21 Dobie Man Relationship Specialty Start Date End Date Valeriano Choe MD [address] [place] [address] PCP - General Family Practice 03/15/21 Dobie Man Relationship Specialty Start Date End Date Valeriano Choe MD [address] [place] [address] PCP - General Family Medicine 03/15/21 Dobie Man Relationship Specialty Start Date End Date Valeriano Choe MD [address] [place] [address] PCP - General Family Medicine 03/15/21 Dobie Man Relationship Specialty Start Date End Date Valeriano Choe MD [address] [place] [address] PCP - General Family Medicine 03/15/21 Dobie Man Relationship Specialty Start Date End Date Valeriano Choe MD [address] [place] [address] PCP - General Family Medicine 03/15/21 Dobie Man Relationship Specialty Start Date End Date Valeriano Choe MD [address] [facility] [place] [address] PCP - General Family Medicine 03/15/21 Dobie Man Relationship Specialty Start Date End Date Valeriano Choe MD [address] [place] [address] PCP - General Family Medicine 03/15/21 Dobie Man Relationship Specialty Start Date End Date Valeriano Choe MD [address] [place] [address] PCP - General Family Medicine 03/15/21 Dobie Man Relationship Specialty Start Date End Date Valeriano Choe MD [address] [place] [id number] PCP - General Family Medicine 03/15/21 Dobie Man Relationship Specialty Start Date End Date Valeriano Choe MD [address] [place] [address] PCP - General Family Medicine 03/15/21 Dobie Man Relationship Specialty Start Date End Date Valeriano Choe MD [address] [place] [address] PCP - General Family Medicine 03/15/21 Dobie Man Relationship Specialty Start Date End Date Valeriano Choe MD [address] [place] [address] PCP - General Family Medicine 03/15/21 Dobie Man Relationship Specialty Start Date End Date Valeriano Choe MD [address] [place] [address] PCP - General Family Medicine 03/15/21 Dobie Man Relationship Specialty Start Date End Date Valeriano Choe MD [address] [place], [place] [id number] [phone] PCP - General Family Medicine 03/15/21 Dobie Man Relationship Specialty Start Date End Date Valeriano Choe MD [address] [place] [address] PCP - General Family Medicine 03/15/21 Dobie Man Relationship Specialty Start Date End Date Valeriano Choe MD [address] [place] [address] PCP - General Family Medicine 03/15/21 Dobie Man Relationship Specialty Start Date End Date Valeriano Choe MD [address] [place] [address] PCP - General Family Medicine 03/15/21 Dobie Man Relationship Specialty Start Date End Date Valeriano Choe MD [address] [place] [address] PCP - General Family Medicine 03/15/21 Dobie Man Relationship Specialty Start Date End Date Valeriano Choe MD [address] [place] [address] PCP - General Family Medicine 03/15/21 Source Comments (unrecognize d section and content) In the event this informatio n is protected by the Federal Confidentiality of Alcohol and Drug Abuse Patient Records regulations: The Federal rules restrict any use of the information to criminally investigate or prosecute any alcohol or drug abuse patient.[facility] the event this information is protected by the Federal Confidentiality of Alcohol and Drug Abuse Patient Records regulations: The Federal rules restrict any use of the information to criminally investigate or prosecute any alcohol or drug abuse patient.[facility] the event this information is protected by the Federal Confidentiality of Alcohol and Drug Abuse Patient Records regulations: The Federal rules restrict any use of the information to criminally investigate or prosecute any alcohol or drug abuse patient.[facility]In the event this information is protected by the Federal Confidentiality of Alcohol and Drug Abuse Patient Records regulations: The Federal rules restrict any use of the information to criminally investigate or prosecute any alcohol or drug abuse patient.[facility]In the event this information is protected by the Federal Confidentiality of Alcohol and Drug Abuse Patient Records regulations: The Federal rules restrict any use of the information to criminally investigate or prosecute any alcohol or drug abuse patient.[facility]In the event this information is protected by the Federal Confidentiality of Alcohol and Drug Abuse Patient Records regulations: The Federal rules restrict any use of the information to criminally investigate or prosecute any alcohol or drug abuse patient.[facility]In the event this information is protected by the Federal Confidentiality of Alcohol and Drug Abuse Patient Records regulations: The Federal rules restrict any use of the information to criminally investigate or prosecute any alcohol or drug abuse patient.[facility] HospitalIn the event this information is protected by the Federal Confidentiality of Alcohol and Drug Abuse Patient Records regulations: The Federal rules restrict any use of the information to criminally investigate or prosecute any alcohol or drug abuse patient.[facility] HospitalIn the event this information is protected by the Federal Confidentiality of Alcohol and Drug Abuse Patient Records regulations: The Federal rules restrict any use of the information to criminally investigate or prosecute any alcohol or drug abuse patient.[facility] HospitalIn the event this information is protected by the Federal Confidentiality of Alcohol and Drug Abuse Patient Records regulations: The Federal rules restrict any use of the information to criminally investigate or prosecute any alcohol or drug abuse patient.[facility] HospitalIn the event this information is protected by the Federal Confidentiality of Alcohol and Drug Abuse Patient Records regulations: The Federal rules restrict any use of the information to criminally investigate or prosecute any alcohol or drug abuse patient.[facility] HospitalIn the event this information is protected by the Federal Confidentiality of Alcohol and Drug Abuse Patient Records regulations: The Federal rules restrict any use of the information to criminally investigate or prosecute any alcohol or drug abuse patient.[facility] HospitalIn the event this information is protected by the Federal Confidentiality of Alcohol and Drug Abuse Patient Records regulations: The Federal rules restrict any use of the information to criminally investigate or prosecute any alcohol or drug abuse patient.[facility] HospitalIn the event this information is protected by the Federal Confidentiality of Alcohol and Drug Abuse Patient Records regulations: The Federal rules restrict any use of the information to criminally investigate or prosecute any alcohol or drug abuse patient.[facility] HospitalIn the event this information is protected by the Federal Confidentiality of Alcohol and Drug Abuse Patient Records regulations: The Federal rules restrict any use of the information to criminally investigate or prosecute any alcohol or drug abuse patient.[facility] HospitalIn the event this information is protected by the Federal Confidentiality of Alcohol and Drug Abuse Patient Records regulations: The Federal rules restrict any use of the information to criminally investigate or prosecute any alcohol or drug abuse patient.[facility] HospitalIn the event this information is protected by the Federal Confidentiality of Alcohol and Drug Abuse Patient Records regulations: The Federal rules restrict any use of the information to criminally investigate or prosecute any alcohol or drug abuse patient.[facility] HospitalIn the event this information is protected by the Federal Confidentiality of Alcohol and Drug Abuse Patient Records regulations: The Federal rules restrict any use of the information to criminally investigate or prosecute any alcohol or drug abuse patient.[facility] HospitalIn the event this information is protected by the Federal Confidentiality of Alcohol and Drug Abuse Patient Records regulations: The Federal rules restrict any use of the information to criminally investigate or prosecute any alcohol or drug abuse patient.[facility] HospitalIn the event this information is protected by the Federal Confidentiality of Alcohol and Drug Abuse Patient Records regulations: The Federal rules restrict any use of the information to criminally investigate or prosecute any alcohol or drug abuse patient.[facility] HospitalIn the event this information is protected by the Federal Confidentiality of Alcohol and Drug Abuse Patient Records regulations: The Federal rules restrict any use of the information to criminally investigate or prosecute any alcohol or drug abuse patient.[facility] HospitalIn the event this information is protected by the Federal Confidentiality of Alcohol and Drug Abuse Patient Records regulations: The Federal rules restrict any use of the information to criminally investigate or prosecute any alcohol or drug abuse patient.[facility] HospitalIn the event this information is protected by the Federal Confidentiality of Alcohol and Drug Abuse Patient Records regulations: The Federal rules restrict any use of the information to criminally investigate or prosecute any alcohol or drug abuse patient.[facility] HospitalIn the event this information is protected by the Federal Confidentiality of Alcohol and Drug Abuse Patient Records regulations: The Federal rules restrict any use of the information to criminally investigate or prosecute any alcohol or drug abuse patient.[facility] HospitalIn the event this information is protected by the Federal Confidentiality of Alcohol and Drug Abuse Patient Records regulations: The Federal rules restrict any use of the information to criminally investigate or prosecute any alcohol or drug abuse patient.[facility] Reason for Visit (unrecogniz ed section and content) Reason Comments Insurance Authorization Reason Comments Orders Reason Comments Medicare Wellness Exam Reason Comments Consult Consult [facility] Reason Comments Results EGD results - [facility] Reason Comments Hospital F/U Reason Comments Results Reason Comments F/U 6 Month Reason Comments Consult GI Reason Comments Refill Request Reason Comments Refill Request This is a short term to local pharmacy and a copy of the 90 sent to mail order. Reason Comments Outside GI Reason Comments Medicare Wellness Exam Reason Comments Follow Up 4 week follow up for BP. Reason Comments Results EMG Reason Comments Results Reason Onset Date Comments Population Health Navigation Outreach 08/25/2023 [facility] Reason Comments Radiology CT Specialty Diagnoses / Procedures Referred By Sarkis t Referred To Contact CT IMAGING Diagnoses Other specified disorders of kidney and ureter Kidney lesion Procedures CT KIDNEY WO/W IVCON CT ABDOMEN W & W/O CONTRAST Valeriano Choe MD [address] [place] [address] [facility] [place] [address] Referral ID Status Reason Start Date Expiration Date V isits Requested Visits Authorized [id number] Closed Auto-Generate d Referral 08/21/2023 09/19/2024 1 1 Reason Comments Outside Orthopedics Reason Comments outside imaging Care Team (unrecognized sect ion and content) Care Team Personnel Name: VALERIANO CHOE MD Member Role: Primary Care Physician Address: Address: [address] [place] [id number]- Care Team Related Persons Name: JOSE HUTTON (unrecognized sect ion and content) No Status Records FoundNo Status Records FoundNo Status Records Found INFORMATION SOURCE (unrecogn ized section and content) DATE CREATED AUTHOR AUTHOR'S ORGANIZ ATION 08/11/2023 [facility] DATE CREATED AUTHOR AUTHOR'S ORGANIZ ATION 09/03/2023 [facility] FOR RECORDS PERTAINING TO PATIENTS WHO ARE OR HAVE BEEN ENROLLED IN A CHEMICAL DEPENDENCY/SUBSTANCEABUSE PROGRAM, SOME INFORMATION MAY BE OMITTED. This clinical summary was aggregated from multiple sources. Caution should be exercised in using it in the provision of clinical care. This summary normalizes information from multiple sources, and as a consequence, information in this document may materially change the coding, format and clinical context of patient data. In addition, data may be omitted in some cases. CLINICAL DECISIONS SHOULD BE BASED ON THE PRIMARY CLINICAL RECORDS. The [employer] [email or web address]. provides no warranty or guarantee of the accuracy or completeness of information in this document.
[2023-09-05 12:42] LABS: Absolute Neutrophil Count 5.2 X10^3/uL (2.0-7.7); Basophil# 0.04 X10^3/uL; Basophil% 0.5 % (0-1); Eosinophil# 0.52 X10^3/uL; Eosinophils% 7.1 % (0-5); Hematocrit 43.8 % (40-54); Hemoglobin 14.3 g/dL (13.0-16.5); Lymphocyte % 8.2 % (19-41); Mean Corp Hgb Conc 32.6 g/dL (32-36); Mean Corpuscular Hgb 33.8 pg (27.0-32.0); Mean Corpuscular Volume 103.5 fL (80-94); Mean Platelet Vol. 10.5 fl (6.2-12.0); Monocyte% 12.3 % (0-10); NRBC Flagged by Analyzer 0 % (0-5); Neutrophil # 5.23 X10^3/uL (2.7-7.7); Neutrophil % 71.5 % (47-70); POSITIVE DIFFERENTIAL YES; Platelet Count 214 K/mm3 (150-450); RBC Distribution Width CV 12.9 % (11.6-14.6); RBC Distribution Width SD 48.9 fl (35.1-43.9); Red Blood Count 4.23 M/mm3 (4.6-6.2); White Blood Count 7.3 K/mm3 (4.4-11.0)
[2023-09-05 12:54] LABS: BNP,B-Type NATRIURETIC PEPTIDE 140.8 pg/mL (0-100)
[2023-09-05 13:01] LABS: Anion Gap 4 (5-15); BUN 12 mg/dL (7-18); BUN/Creat Ratio 13.7 RATIO (10-20); Calcium,Total 9.7 mg/dL (8.5-10.1); Chloride 110 mmol/L (98-107); Creatinine, Serum 0.87 mg/dL (0.70-1.30); EST Glomerular Filtration Rate 91 mL/min (>60); Est Glom Filt Rate - Afr Amer 110 mL/min (>60); Glucose 97 mg/dL (74-106); Potassium 4.6 mmol/L (3.5-5.1); Sodium Level 140 mmol/L (136-145)
== END | disposition home or self-care (01) ==
PROVIDERS: PCP Family Medicine; Referring Provider Nurse Practitioner Gerontology; Visit Provider Nurse Practitioner Gerontology
DX: R06.02 Shortness of breath (principal)
CPT/HCPCS: 36415; 80048; 83880; 85025

== ENCOUNTER → 2023-09-28 | Outpatient (CLI) | payer MEDICARE, SELFPAY ==
[2023-08-23 15:18] VITALS: BMI 28.3
--- NOTE | 2023-09-28 06:54 | ECHOCS_ITS ---
Reason For Study: SOB Procedure This was a 2D Doppler, Color Flow transthoracic echocardiogram. The study was technically difficult. Exam performed in department. Left Ventricle Normal LV size. Left ventricular systolic function is lower limits of normal. The estimated ejection fraction is 50 %. Stage 1 diastolic dysfunction. There is mild global hypokinesis of the left ventricle. Right Ventricle Normal right ventricle. Normal systolic function. Atria The left atrium is moderately enlarged. Normal right atrium. Mitral Valve There is mild mitral annular calcification. Mild (1+) eccentric mitral valve insufficiency. Tricuspid Valve Normal tricuspid valve. Mild (1+) tricuspid valve insufficiency. Pulmonary artery systolic pressure is 30 mmHg. Aortic Valve Trisinus/trileaflet aortic valve. Mild focal aortic valve calcification. Pulmonic Valve Normal pulmonic valve. Great Vessels Normal aortic root. The pulmonary artery is normal size. Normal inferior vena cava. Pericardium/Pleural No pericardial effusion. Medication 22 gauge I.V. with prn adaptor inserted into right arm. Diluted definity 1.5ml given slow IV push to enhance endocardial definition. MMode/2D Measurements & Calculations LVIDd: 4.6 cm IVSd: 1.1 cm Ao root diam: 4.0 cm LVIDs: 3.5 cm LVPWd: 1.2 cm RVDd: 4.1 cm FS: 23.2 % LAV(MOD-bp): 115.3 ml LVAd ap4: 43.5 cm2 LVAd ap2: 38.9 cm2 LAV(MOD-bp) Indexed: 54.2 ml/m2 LVLd ap4: 9.6 cm LVLd ap2: 8.4 cm LAV(MOD-sp2): 101.3 ml EDV(MOD-sp4): 159.3 ml EDV(MOD-sp2): 145.4 ml LAV(MOD-sp4): 119.3 ml EDV(sp4-el): 166.9 ml EDV(sp2-el): 152.7 ml LVAs ap4: 30.8 cm2 LVAs ap2: 28.0 cm2 LVLs ap4: 8.6 cm LVLs ap2: 7.5 cm ESV(MOD-sp4): 92.5 ml ESV(MOD-sp2): 85.7 ml ESV(sp4-el): 93.8 ml ESV(sp2-el): 88.8 ml EF(MOD-sp4): 41.9 % EF(MOD-sp2): 41.1 % EF(sp4-el): 43.8 % SV(MOD-sp4): 66.7 ml SV(MOD-sp2): 59.7 ml SV(sp4-el): 73.1 ml LA A4 area: 32.6 cm2 LA dimension(2D): 4.6 cm RA A4 area: 15.9 cm2 TAPSE: 2.1 cm Time Measurements MV dec time: 0.22 sec Doppler Measurements & Calculations MV E max zay: 84.5 cm/sec Lat Peak E' Zay: 6.1 cm/sec Med Peak E' Zay: 5.2 cm/sec MV A max zay: 106.5 cm/sec E/E' lat: 13.9 E/E' med: 16.1 MV E/A: 0.79 Ao V2 max: 177.6 cm/sec LV V1 max: 90.5 cm/sec MV dec slope: 389.1 cm/sec2 Ao max P.6 mmHg LV V1 max P.3 mmHg Ao V2 mean: 121.7 cm/sec LV V1 mean P.1 mmHg Ao mean P.8 mmHg LV V1 mean: 67.4 cm/sec Ao V2 VTI: 40.3 cm LV V1 VTI: 21.0 cm AV (velocity ratio): 0.52 PA V2 max: 129.8 cm/sec TR max zay: 261.8 cm/sec TR max P.4 mmHg ECHO/Echo Complete W/ Contrast Interpretation Summary Normal LV size. Left ventricular systolic function is lower limits of normal. There is mild global hypokinesis of the left ventricle. The estimated ejection fraction is 50 %. The left atrium is moderately enlarged. Stage 1 diastolic dysfunction. Pulmonary artery systolic pressure is 30 mmHg. Contrast injection was performed. Ordering Physician: Estefany Thrasher Referring Physician: Valeriano Beasley Performed By: Elvira James RDCS
--- NOTE | 2023-09-28 06:54 | CDU_ITS ---
Reason For Study: Dizziness Rt. Velocities/BP Lt. Velocities/BP Prox CCA 89.7/12.7 cm/sec. Prox CCA 107.0/21.2 cm/sec. Mid CCA 80.9/24.8 cm/sec. Mid CCA 88.8/23.0 cm/sec. Dist CCA 61.0/17.6 cm/sec. Dist CCA 68.3/20.4 cm/sec. Prox ICA 55.3/17.9 cm/sec. Prox ICA 65.8/22.8 cm/sec. Mid ICA 75.2/24.4 cm/sec. Mid ICA 96.5/32.7 cm/sec. Dist ICA 63.6/27.7 cm/sec. Dist ICA 51.4/17.8 cm/sec. Rt. ICA/CCA = 0.9. Lt. ICA/CCA = 1.1. Prox ECA 95.7/20.1 cm/sec. Prox ECA 101.6/19.4 cm/sec. Rt. Vert. 26.5/6.3 cm/sec. Lt. Vert. 52.9/17.1 cm/sec. Right Extracranial There is homogeneous, smooth atherosclerotic plaque noted in the right common carotid artery. There is heterogeneous, irregular atherosclerotic plaque noted in the right internal carotid artery. There is heterogeneous, irregular atherosclerotic plaque noted in the right external carotid artery. Antegrade flow is noted in the right vertebral artery. Left Extracranial There is heterogeneous, irregular atherosclerotic plaque noted in the left common carotid artery. There is heterogeneous, irregular atherosclerotic plaque noted in the left internal carotid artery. There is heterogeneous, irregular atherosclerotic plaque noted in the left external carotid artery. Antegrade flow is noted in the left vertebral artery. Procedure Carotid Duplex [id number]. This is a Carotid Duplex examination using B-mode, color flow and specral Doppler. The exam was diagnostic. Exam performed in department. VL/Carotid Duplex Ultrasound Interpretation Summary Mild (<50%) stenosis right extracranial internal carotid. Mild (<50%) stenosis left extracranial internal carotid. Patent and antegrade vertebrals bilaterally. Ordering Physician: Estefany Thrasher Referring Physician: Valeriano Beasley Performed By: Geoff Rivers RVT
--- OUTSIDE RECORDS SUMMARY | 2023-09-28 06:58 | XMS RPT_ITS | CCD ---
Author Name Unknown Address [address] [facility] [address] [place] [address] Organization [facility] Care Team Providers Care Machine Pecan Picker Name Role Phone VALERIANO CHOE MD Primary Care Physician Valeriano Choe MD Primary Care Provider [phone] Valeriano Choe MD Primary Care Provider [phone] Valeriano Choe MD Primary Care Provider [phone] TESSA GUZMAN MD Attending Unavailable DAIJA LUNA, VALERIANO Stanford Primary Care Unavailable TESSA GUZMAN MD Attending Unavailable VALERIANO CHOE MD Primary Care Unavailable PHYSICIAN, NONE Admitting Unavailable TOM NASH MD, DR GERBER Attending Unav VALERIANO Mcnair MD Primary Care Unavailable VALERIANO CHOE Primary Care Unavailable SUZANNA DAWSON Referring Unavailable DAIJA VALERIANO A Primary Care Unavailable SUZANNA DAWSON Referring [...] Unavailable SUZANNA DAWSON Attending Unavailable VALERIANO CHOE Referring Unavailable DAIJA, VALERIANO A Primary Care Unavailable VALERIANO CHOE Attending Unavailable VALERIANO CHOE Referring Unavailable DAIJA, VALERIANO A Primary Care Unavailable VALERIANO CHOE A Referring Unavailable DAIJA, VALERIANO A Primary Care Unavailable VALERIANO CHOE A Referring Unavailable DAIJA, VALERIANO A Primary Care Unavailable DAIJAVALERIANO SOLANO Referring Unavailable DAIJA, VALERIANO A Primary Care Unavailable DAIJA, VALERIANO A Attending Unavailable VALERIANO CHOE Primary Care Unavailable VALERIANO CHOE Primary Care Unavailable VALERIANO CHOE Referring Unavailable VALERIANO CHOE Primary Care Unavailable VALERIANO CHOE Referring Unavailable Allergies Allergy Classification Reported Allergen(s) Allergy Type Date of Onset Reaction(s) Facility (20 sources) hydroCHLOROthiazi de; Translations: [hydrochlorothiaz aliyah] Drug Allergy 03-04-2008 Unknown [facility] Medications Current Medications Medication Drug Class(es) Dates [...] Coronary atherosclerosis; Translations: [Atherosclerotic heart disease of [place] coronary artery without angina pectoris] Onset: 12-06-2021 [...] Chronic Other diseases of kidney and ureters (10 sources) Kidney lesion; Translations: [Disorder of kidney [...] caused by tuberculosis or sexually transmitted disease) (10 sources) Heart valve disorder; Translations: [Endocarditis, valve unspecified] Onset: 05-18-2023 05-18-2023 Chronic Spondylosis; intervertebral disc disorders; other back problems (10 sources) Lumbosacral radiculopathy; Translations: [Radiculopathy, lumbosacral region] [...] unspecified] Onset: 9 03-15-2021 Episodic Nutritional deficiencies (11 sources) Serum vitamin B12 low; Translations: [Deficiency of other specified B group vitamins] Onset: 3 05-18-2023 Episodic Other aftercare (20 sources) Patient encounter status; Translations: [Other fci (current) drug therapy] Onset: 1 03-15-2021 Episodic Other connective tissue disease (12 sources) Atrophy of muscle of right shoulder; Translations: [Muscle wasting and atrophy, not elsewhere classified, right shoulder] Onset: 3 04-20-2023 Episodic Other connective tissue disease (12 sources) Muscle atrophy; Translations: [Muscle wasting and atrophy, not elsewhere classified, other site] Onset: 3 04-20-2023 Episodic Other gastrointestinal disorders (20 sources) Arteriovenous malformation of large intestine; Translations: [...] 1 03-15-2021 Episodic Other nervous system disorders (12 sources) Impairment of balance; Translations: [Other abnormalities [...] 91.76 kg Valeriano Choe MD Work Phone: [facility] 05-18-2023 10:39-0400 Diastolic blood pressure 80 mm[Hg] Valeriano Choe MD Work Phone: [facility] 05-18-2023 10:39-0400 Heart rate 58 /min Valeriano Choe MD Work Phone: [facility] 05-18-2023 10:39-0400 SaO2% (BldA) [Mass fraction] 96 % Valeriano Choe MD Work Phone: [facility] 05-18-2023 10:39-0400 Systolic blood pressure 122 mm[Hg] Valeriano Choe MD Work Phone: [facility] 04-20-2023 12:38-0400 Diastolic blood pressure 81 mm[Hg] Valeriano Choe MD Work Phone: [facility] 04-20-2023 12:38-0400 Heart rate 53 /min Valeriano Choe MD Work Phone: [facility] 04-20-2023 12:38-0400 Systolic blood pressure 152 mm[Hg] Valeriano Choe MD Work Phone: [facility] 04-20-2023 [id number] Body height 174.6 cm Valeriano Choe MD Work Phone: [facility] 04-20-2023 11:22-0400 Body weight 91.17 kg Valeriano Choe MD Work Phone: [facility] 04-20-2023 11:22-0400 Respiratory rate 16 /min Valeriano Choe MD Work Phone: [facility] 10-12-2022 10:09-0400 Body temperature 97.2 [degF] Suzanna Dawson PA-C Work Phone: [facility] 10-12-2022 10:09-0400 Body weight 85.73 kg Suzanna Dawson PA-C Work Phone: [facility] 10-12-2022 10:09-0400 Diastolic blood pressure 80 mm[Hg] Suzanna Dawson PA-C Work Phone: [facility] 10-12-2022 10:09-0400 Heart rate 56 /min Suzanna Dawson PA-C Work Phone: [facility] 10-12-2022 10:09-0400 Respiratory rate 16 /min Suzanna Dawson PA-C Work Phone: [facility] 10-12-2022 10:09-0400 Systolic blood pressure 136 mm[Hg] Suzanna Dawson PA-C Work Phone: [facility] 09-14-2022 14:41-0500 Body weight 88.91 kg Valeriano Choe MD Work Phone: [facility] 09-14-2022 14:41-0500 Diastolic blood pressure 78 mm[Hg] Valeriano Choe MD Work Phone: [facility] 09-14-2022 14:41-0500 Heart rate 58 /min Valeriano Choe MD Work Phone: [facility] 09-14-2022 14:41-0500 Systolic blood pressure 118 mm[Hg] Valeriano Choe MD Work Phone: [facility] 04-18-2022 15:36-0400 Diastolic blood pressure 105 mm[Hg] Valeriano Choe MD Work Phone: [facility] 04-18-2022 15:36-0400 Systolic blood pressure 175 mm[Hg] Valeriano Choe MD Work Phone: [facility] 04-18-2022 14:39-0400 Body height 174 cm Valeriano Choe MD Work Phone: [facility] 04-18-2022 14:39-0400 Body weight 90.36 kg Valeriano Choe MD Work Phone: [facility] 04-18-2022 14:39-0400 Heart rate 66 /min Valeriano Choe MD Work Phone: [facility] 04-18-2022 14:39-0400 Respiratory rate 16 /min Valeriano Choe MD Work Phone: [facility] 01-27-2022 14:00-0400 Diastolic blood pressure 80 mm[Hg] DR FRANKLIN NASH MD [address] 01-27-2022 14:00-0400 Heart rate 64 /min DR FRANKLIN NASH MD [facility] 01-27-2022 14:00-0400 Mean blood pressure 97 mm[Hg] DR FRANKLIN NASH MD [facility] 01-27-2022 14:00-0400 Systolic blood pressure 130 mm[Hg] DR FRANKLIN NASH MD [address] 01-27-2022 13:15-0400 Diastolic blood pressure 72 mm[Hg] DR FRANKLIN NASH MD [facility] 01-27-2022 13:15-0400 Heart rate 65 /min DR FRANKLIN NASH MD [facility] 01-27-2022 13:15-0400 Mean blood pressure 90 mm[Hg] DR FRANKLIN NASH MD [address] [place] [address] 01-27-2022 13:15-0400 Systolic blood pressure 127 mm[Hg] DR FRANKLIN NASH MD [address] [place] [address] 01-27-2022 13:00-0400 Diastolic blood pressure 75 mm[Hg] DR FRANKLIN NASH MD [address] [place] [address] 01-27-2022 13:00-0400 Heart rate 66 /min DR FRANKLIN NASH MD [address] [place] [address] 01-27-2022 13:00-0400 Mean blood pressure 92 mm[Hg] DR FRANKLIN NASH MD [address] [place] [address] 01-27-2022 12:08-0400 Reason For Taking VItal Signs DR FRANKLIN NASH MD [address] [place] [address] 01-27-2022 12:08-0400 Respiratory rate 18 /min DR FRANKLIN NASH MD [address] [place] [address] 01-27-2022 11:24-0400 Reason For Taking VItal Signs DR FRANKLIN NASH MD [address] [place] [address] 01-27-2022 11:24-0400 Respiratory rate 16 /min DR FRANKLIN NASH MD [address] [place] [address] 01-27-2022 06:11-0400 Body height 177.[address] FRANKLIN NASH MD [address] [place] [address] 01-27-2022 06:11-0400 Body temperature 97.34 [degF] DR FRANKLIN NASH MD [address] [place] [address] 01-27-2022 06:11-0400 Body weight 88.[address] FRANKLIN NASH MD [address] [place] [address] 01-27-2022 06:11-0400 Body weight 28.12 kg/m2 DR FRANKLIN NASH MD [address] [place] [address] 01-27-2022 06:11-0400 diastolic 85 mm[Hg] DR FRANKLIN NASH MD [address] [place] [address] 01-27-2022 06:11-0400 Heart rate 56 /min DR FRANKLIN NASH MD [address] [place] [address] 01-27-2022 06:11-0400 Respiratory rate 16 /min DR FRANKLIN NASH MD [address] [place] [address] 01-27-2022 06:11-0400 systolic 149 mm[Hg] DR FRANKLIN NASH MD [address] [place] [address] 12-01-2021 10:25-0400 Diastolic blood pressure 78 mm[Hg] CHRISTINE SNYDER MD [address] [place] [address] 12-01-2021 10:25-0400 Heart rate 85 /min CHRISTINE SNYDER MD [address] [place] [address] 12-01-2021 10:25-0400 Respiratory rate 20 /min CHRISTINE SNYDER MD [address] [place] [address] 12-01-2021 10:25-0400 Systolic blood pressure 142 mm[Hg] CHRISTINE SNYDER MD [address] [place] [address] 12-01-2021 10:18-0400 Heart rate 93 /min CHRISTINE SNYDER MD [address] [place] [address] 12-01-2021 08:01-0400 Heart rate 68 /min CHRISTINE SNYDER MD [address] [place] [address] 12-01-2021 06:26-0400 Body temperature 97.7 [degF] CHRISTINE SNYDER MD [facility] 12-01-2021 06:26-0400 Diastolic blood pressure 62 mm[Hg] CHRISTINE SNYDER MD [facility] 12-01-2021 06:26-0400 Reason For Taking VItal Signs CHRISTINE SNYDER MD [facility] 12-01-2021 06:26-0400 Respiratory rate 20 /min CHRISTINE SNYDER MD [facility] 12-01-2021 06:26-0400 Systolic blood pressure 130 mm[Hg] CHRISTINE SNYDER MD [facility] 12-01-2021 04:04-0400 Diastolic blood pressure 70 mm[Hg] CHRISTINE SNYDER MD [facility] 12-01-2021 04:04-0400 Mean blood pressure 89 mm[Hg] CHRISTINE SNYDER MD [facility] 12-01-2021 04:04-0400 Reason For Taking VItal Signs CHRISTINE SNYDER MD [facility] 12-01-2021 04:04-0400 Respiratory rate 20 /min CHRISTINE SNYDER MD [facility] 12-01-2021 04:04-0400 Systolic blood pressure 128 mm[Hg] CHRISTINE SNYDER MD [facility] 11-30-2021 22:06-0400 Body temperature 98.24 [degF] CHRISTINE SNYDER MD [facility] 11-30-2021 22:06-0400 Mean blood pressure 103 mm[Hg] CHRISTINE SNYDER MD [facility] 11-30-2021 22:06-0400 Reason For Taking VItal Signs CHRISTINE SNYDER MD [facility] 11-30-2021 19:22-0400 Diastolic Blood Pressure NBP 82 1 CHRISTINE SNYDER MD [facility] 11-30-2021 19:22-0400 Systolic Blood Pressure NBP 138 1 CHRISTINE SNYDER MD [facility] 11-30-2021 19:01-0400 Body temperature 97.7 [degF] CHRISTINE SNYDER MD [facility] 11-30-2021 19:01-0400 Mean blood pressure 95 mm[Hg] CHRISTINE SNYDER MD [facility] 11-30-2021 13:20-0400 SaO2% (BldA) [Mass fraction] 96.3 % CHRISTINE SNYDER MD [facility] 11-30-2021 11:33-0400 Heart rate 56 /min CHRISTINE SNYDER MD [facility] 11-30-2021 09:52-0400 Heart rate 64 /min CHRISTINE SNYDER MD [facility] 11-30-2021 07:29-0400 Heart rate 52 /min CHRISTINE SNYDER MD [facility] 11-30-2021 02:55-0400 Diastolic Blood Pressure NBP 72 1 CHRISTINE SNYDER MD [facility] 11-30-2021 02:55-0400 Mean blood pressure 85 mm[Hg] CHRISTINE SNYDER MD [facility] 11-30-2021 02:55-0400 Systolic Blood Pressure NBP 118 1 CHRISTINE SNYDER MD [address] [place] [address] 11-30-2021 02:22-0400 Diastolic Blood Pressure NBP 52 1 CHRISTINE SNYDER MD [facility] 11-30-2021 02:22-0400 Mean blood pressure 68 mm[Hg] CHRISTINE SNYDER MD [facility] 11-30-2021 02:22-0400 Systolic Blood Pressure NBP 104 1 CHRISTINE SNYDER MD [facility] 11-30-2021 00:05-0400 Mean blood pressure 85 mm[Hg] CHRISTINE SNYDER MD [facility] 11-29-2021 16:55-0400 Body height 177.8 cm CHRISTINE SNYDER MD [facility] 11-29-2021 16:55-0400 Body weight 94.5 kg CHRISTINE SNYDER MD [facility] 11-29-2021 16:55-0400 Body weight 29.89 kg/m2 CHRISTINE SNYDER MD [facility] 11-29-2021 15:00-0400 Diastolic blood pressure 141 mm[Hg] DONAVON ROSALES DO [facility] 11-29-2021 15:00-0400 Heart rate 59 /min DONAVON ROSALES DO [facility] 11-29-2021 15:00-0400 Respiratory rate 20 /min DONAVON ROSALES DO [facility] 11-29-2021 15:00-0400 Systolic blood pressure 155 mm[Hg] DONAVON ROSALES DO [facility] 11-29-2021 14:56-0400 Body weight 95.4 kg DONAVON ROSALES DO [facility] 11-29-2021 14:34-0400 Body temperature 98.6 [degF] DONAVON ROSALES DO [facility] 11-29-2021 14:34-0400 Body weight 95.4 kg DONAVON ROSALES DO [facility] 11-29-2021 14:34-0400 Diastolic blood pressure 97 mm[Hg] DONAVON ROSALES DO [facility] 11-29-2021 14:34-0400 Heart rate 40 /min DONAVON ROSALES DO [facility] 11-29-2021 14:34-0400 Respiratory rate 22 /min DONAVON ROSALES DO [facility] 11-29-2021 14:34-0400 Systolic blood pressure 138 mm[Hg] DONAVON ROSALES DO [facility] Encounters Encounter Date Encounter Type Care Provider Facility Start: 09-25-2023 Refill Valeriano solano MD Work Phone: [facility] Procedures Date Procedure Procedure Detail Performing Clinician [...] - S rosana or Plasma Lipid Screening [facility] Start: 04-14-2028 Lipid panel Lipid Screening [facility] Start: 10-06-2027 LIPID SCREEN LIPID SCREEN [facility] Start: 09-14-2027 LIPID SCREEN LIPID SCREEN [facility] Start: 04-13-2027 LIPID SCREEN LIPID SCREEN [facility] Start: 04-14-2026 Diabetes Screening Diabetes Screenin g [facility] Start: 03-24-2026 Colonoscopy COLONOSCOPY [facility] Start: 03-24-2026 COLORECTAL CANCER SCREENING COLORECTAL CANCER SCREENING [facility] Start: 03-15-2026 LIPID SCREEN LIPID SCREEN [facility] Start: 09-14-2025 DIABETES SCREEN DIABETES SCREEN [facility] Start: 09-05-2025 Colonoscopy COLONOSCOPY [facility] Start: 09-05-2025 COLORECTAL CANCER SCREENING COLORECTAL CANCER SCREENING [facility] Start: 09-05-2025 Screening for malign ant neoplasm of colon [facility] Start: 04-13-2025 DIABETES SCREEN DIABETES SCREEN [facility] Start: 07-10-2024 Annual PCP Team Die Cutter alfredo Disease Visit Annual PCP Team Chronic Disease Visit [facility] Start: 05-18-2024 Annual PCP Team Die Cutter alfredo Disease Visit Annual PCP Team Chronic Disease Visit [facility] Start: 04-20-2024 Annual PCP Team Die Cutter alfredo Disease Visit Annual PCP Team Chronic Disease Visit [facility] Start: 04-20-2024 Covid-19 Vaccine ( season) Covid-19 Vaccine ( season) [facility] Immunizations Immunization Date Immunization Notes Care Provider Jeff banegas 04-20-2023 influenza (HD-IIV4) vaccine, age 65+ yr, high dose, quadrivalent, PF (FLUZONE HIGH-DOSE) Valeriano Choe MD Work Phone: [facility] 04-20-2023 pneumococcal (PCV20) vaccine, 20 valent (PREVNAR 20) Valeriano Choe MD Work Phone: [facility] 04-20-2023 pneumococcal Conjuga te, unspecified formulation Valeriano Choe MD Work Phone: [facility] Work Phone: 08-12-2019 influenza, high dose seasonal, preservative-free Monserrat Soriano MA [facility] 08-01-2018 influenza, high dose seasonal, preservative-free Monserrat Soriano MA [facility] 08-01-2018 pneumococcal conjuga te vaccine, 13 valent Monserrat Soriano MA [facility] 01-07-2016 pneumococcal polysaccharide vaccine, 23 valent Monserrat Soriano MA [facility] 07-16-2013 influenza virus vacc ine, unspecified formulation Monserrat Soriano MA [facility] 07-12-2011 influenza virus vacc ine, unspecified formulation Monserrat Soriano MA [facility] 03-04-2008 tetanus toxoid, redu el diphtheria toxoid, and acellular pertussis vaccine, adsorbed Monserrat Soriano MA [facility] Work Phone: 06-02-2005 influenza virus vacc ine, unspecified formulation Monserrat Soriano MA [facility] Work Phone: Payers Date Payer Category Payer Medicare [id number] 2022 Medicare [id number] 2022 Private Health Insurance [id number] 2021 Medicare HUMANA MEDICARE HUMANA GOLD PLUS [id number] 2021-Present [phone] [place] [phone] [facility] [id number] 2021 Medicare [id number] 1950 Unknown [id number] 1950 Unknown [id number] 1950 Unknown [id number] Social History Date Type Detail Facility Tobacco smoking status Never smoker [facility] Start: 1950 Sex Assigned At Male [facility] Start: 07-12-2011 End: 12-13-2021 Tobacco smoking status ARIS Never smoked tobacco [facility] Start: 03-17-2021 End: 07-10-2023 Alcohol intake Current drinker of alcohol (finding) [facility] Start: 1950 Sex Assigned At Not on file [facility] Start: 11-22-2021 End: 04-18-2022 Exposure to SARS-CoV-2 (event) Not sure [facility] Start: 12-05-2021 History SDOH Social Connections Phone 5 [facility] Start: 12-05-2021 History SDOH Social Connections Get Together 3 [facility] Start: 12-05-2021 History SDOH Social Connections Membership 1 [facility] Start: 12-05-2021 History SDOH Social Connections Meetings 2 [facility] Start: 12-05-2021 History SDOH Social Connections Living 4 [facility] Start: 07-12-2011 Tobacco use and exposure Smokeless tobacco non-user [facility] Start: 12-05-2021 End: 04-20-2023 History of Social function [facility] Start: 12-05-2021 End: 04-20-2023 Social connection and isolation panel [facility] Do you belong to any clubs or organizations such as jew groups, unions, fraternal or athletic groups, or school groups? Yes [facility] Are you now , , , , never or living with a partner? [facility] How often to you hav e a drink containing alcohol? Patient refused [facility] How hard is it for y ou to pay for the very basics like food, housing, medical care, and heating Somewhat hard [facility] (I/We) worried arun er (my/our) food would run out before (I/we) got money to buy more. Never true [facility] In the past 12 month s, was there a time when you were not able to pay the mortgage or rent on time? No [facility] Start: 12-05-2021 Gender identity Identifies as male gender (finding) [facility] Start: 12-05-2021 Sexual orientation Heterosexual (finding) [facility] Functional Status Date Assessment Result Facility 01-27-2022 Functional Status Ambulating in [place], Ambulating in room [facility] 01-27-2022 Functional Status [facility] 01-27-2022 Functional Status [facility] 01-27-2022 Functional Status Room check performed [facility] 12-01-2021 Functional Status [facility] 12-01-2021 [...] [facility] 11-29-2021 Functional Status [facility] 11-29-2021 [facility] Mental Status Date Assessment Result Facility 01-27-2022 Mental Status Orientation Oriented x [address] [facility] 01-27-2022 [facility] 01-27-2022 [facility] 12-01-2021 [facility] 12-01-[facility]21 [facility] 11-30-2021 Mental Status [facility] 11-29-2021 Mental Status [facility] 11-29-2021 Mental Status [facility] Clinical Notes 08-01-2018 to 09-25-2023 Telephone Encounter - Valeriano Choe MD - 09/25/2023 10:57 PM ESTTelephone Encounter - Lupillo Moura LPN - 09/25/2023 2:21 PM Lupillo Lozano LPN - 09/07/2023 7:33 AM EST Note Date & Type Note Facility 09-25-2023 Miscellaneous Notes The following approved medication requests have been transmitted electronically. Requested Prescriptions Signed Prescriptions Disp Refills losartan (COZAAR) 50 mg tablet 90 tablet 1 Sig: Take 1 tablet by mouth once daily. Authorizing Provider: VALERIANO CHOE MD Patient has been identified by name and date of : Yes, Provider Dr Choe Date 09/25/23 Time 2:21 pm Patient phones for refill(s): Requested Prescriptions Pending Prescriptions Disp Refills losartan (COZAAR) 50 mg tablet 90 tablet 1 Sig: Take 1 tablet by mouth once daily. Date of last office visit in primary care: 07/10/2023 Date of next office visit in primary care: 2023 Please advise. Thank you. Lupillo Moura LPN. Patient has been identified by name and date of : Yes Requested Prescriptions Pending Prescriptions Disp Refills losartan (COZAAR) 50 mg tablet 90 tablet 1 Sig: Take 1 tablet by mouth once daily. RX INSTRUCTIONS: Patient aware RX escripted to mail away pharmacy. No need to notify patient. Grisel Nevarez Pss documented in this encounter [facility] 09-07-2023 Note HNO ID: [id number] Author: LUPILLO MOURA LPN Service: ? Author Type: LICENSED NURSE Type: Progress Notes Filed: 09/07/2023 07:45 Note Text: Scan on 09/05/2023 5:03 PM by ProviderBing PA-C: Consultation - Cardiology [facility] 09-07-2023 History of Presen t illness Narrative Scan on 09/05/2023 5:03 PM by Bing Salmeron PA-C: Consultation - Cardiology documented in this encounter [facility] 09-06-2023 Note HNO ID: [id number] Author: LUPILLO MOURA LPN Service: ? Author Type: LICENSED NURSE Type: Progress Notes Filed: 09/06/2023 08:18 Note Text: Scan on 09/05/2023 1:01 PM by Bing Salmeron PA-C: Consultation - Cardiology Scan on 09/05/2023 1:24 PM by Bing Salmeron PA-C: Miscellaneous Lab [facility] 09-06-2023 History of Presen t illness Narrative Scan on 09/05/2023 1:01 PM by Bing Salmeron PA-C: Consultation - Cardiology Scan on 09/05/2023 1:24 PM by Bing Salmeron PA-C: Miscellaneous Lab documented in this encounter [facility] 09-04-2023 Note HNO ID: [id number] Author: ADAM MOE LPN Service: ? Author Type: LICENSED NURSE Type: Progress Notes Filed: 09/04/2023 15:03 Note Text: Scan on 09/02/2023 12:52 PM by Bing Salmeron PA-C: X-ray [facility] 09-04-2023 History of Presen t illness Narrative Scan on 09/02/2023 12:52 PM by ProviderBing PA-C: X-ray documented in this encounter [facility] 09-01-2023 Note HNO ID: [id number] Author: LUPILLO MOURA LPN Service: ? Author Type: LICENSED NURSE Type: Progress Notes Filed: 09/01/2023 12:27 Note Text: Scan on 09/01/2023 11:52 AM by Bing Salmeron PA-C: Consultation - Orthopedics [facility] 09-01-2023 History of Presen t illness Narrative Scan on 09/01/2023 11:52 AM by Bing Salmeron PA-C: Consultation - Orthopedics documented in this encounter [facility] 08-28-2023 Note HNO ID: [id number] Author: RAQUEL OVERTON RT(R) Service: ? Author Type: Contact Center Director Type: Progress Notes Filed: 08/28/2023 15:13 Note [...] PATIENT PRESENTS WITH AN IMPLANTABLE OR ATTACHED RESTORATIVE CARE TECHNICIAN: No ALLERGIES: Reviewed and unchanged CONTRAST ALLERGY: [...] DATE: August 28, 2023 TIME: 3:13 PM [facility] [facility] 08-28-2023 History of Presen t [...] PATIENT PRESENTS WITH AN IMPLANTABLE OR ATTACHED RESTORATIVE CARE TECHNICIAN: No ALLERGIES: Reviewed and unchanged CONTRAST ALLERGY: [...] Kidney SIGNATURE: RT Tato(Federico) PATIENT NAME: Nazario Solis Anni DATE: August 28, 2023 TIME: 3:13 PM documented in this encounter [facility] 08-25-2023 Note Patient Outreach (BENJAMIN LOPEZ) NAZARIO HUTTON ([id number]) 1950 M Date Time Provider Department 08/25/23 NERI DENNY During your visit today, we recorded the following information about you: Neri Denny MA 08/25/2023 3:43 PM Signed POPULATION HEALTH NAVIGATION OUTREACH Action/ Due: Medicare wellness 2023 (last - 04/20/23). PCP follow up currently scheduled for 10/19/23. Left voice mail for patient to call back. Takes message sent. Patient Identified by Name and : NO Outreach Outcome/Action Unable to reach patient: Left message [employer] message sent Did you use a PCP flex slot to schedule this appointment? 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 Author Type: Clinical Nurse Manager Type: Progress Notes Filed: 08/25/2023 15:43 Note Text: POPULATION HEALTH NAVIGATION OUTREACH Action/FYI HM Due: Medicare wellness 2023 (last - 04/20/23). PCP follow up currently scheduled for 10/19/23. Left voice mail for patient to call back. Takes message sent. Patient Identified by Name and : NO Outreach Outcome/Action Unable to reach patient: Left message [employer]t message sent Did you use a PCP flex slot to schedule this appointment? N/A Reason for Outreach Care Gap or Scheduling/Wellness visits Payer: Payor: [facility] MEDICARE / Plan: UHC AARP MEDICARE HMO / Product Type: HMO / Care Gap Reviewed:: Annual Wellness visit Reminder: Reminder note to check Health Maintenance for items below Health Maintenance items due: RSV Vaccine(1 - 1-dose 60+ series) Never done BP Controlled (<130/80) due on 03/15/2022 Advance Directive Discussion due on 07/24/2023 Navigation Signature: Neri Denny MA August 25, 2023 10:03 AM [facility] 08-25-2023 History of Presen t illness Narrative POPULATION HEALTH NAVIGATION OUTREACH Action/FYI HM Due: Medicare wellness 2023 (last - 04/20/23). PCP follow up currently scheduled for 10/19/23. Left voice mail for patient to call back. Mychart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 glucose 09/03/2017 019 Abrasion of left ear canal 08/28/201708/12 Stool guaiac positive 01/19/2016 08/01/2018 Hyperuricemia 10/30/2014 08/12/2019 Neurodermatitis 07/12/2011 08/01/2018 documented as of this encounter (statuses as of 12/02/2021) [facility] of [facility] illness Narrative* Problem Noted Date Resolved Date High serum parathyroid hormone (PTH) 08/01/2018 08/12/2019 Elevated PTHrP level 07/21/2018 08/12/2019 Impaired fasting glucose 09/03/2017 019 Abrasion of left ear canal 08/28/201708/12 Stool guaiac positive 01/19/2016 08/01/2018 Hyperuricemia 10/30/2014 08/12/2019 Neurodermatitis 07/12/2011 08/01/2018 documented as of this encounter (statuses as of 12/31/2021) [facility] of [facility] illness Narrative* Problem Noted Date Resolved Date High serum parathyroid hormone (PTH) 08/01/2018 08/12/2019 Elevated PTHrP level 07/21/2018 08/12/2019 Impaired fasting glucose 09/03/2017 019 Abrasion of left ear canal 08/28/201708/12 Stool guaiac positive 01/19/2016 08/01/2018 Hyperuricemia 10/30/2014 08/12/2019 Neurodermatitis 07/12/2011 08/01/2018 documented as of this encounter (statuses as of 01/02/2022) [facility] of [facility] Narrative* Problem Noted Date Resolved Date High serum parathyroid hormone (PTH) 08/01/2018 08/12/2019 Elevated PTHrP level 07/21/2018 08/12/2019 Impaired fasting glucose 09/03/2017 019 Abrasion of left ear canal 08/28/201708/12 Stool guaiac positive 01/19/2016 08/01/2018 Hyperuricemia 10/30/2014 08/12/2019 Neurodermatitis 07/12/2011 08/01/2018 documented as of this encounter (statuses as of 04/12/2022) [facility] Narrative* Problem Noted Date Resolved Date High serum parathyroid hormone (PTH) 08/01/2018 08/12/2019 Elevated PTHrP level 07/21/2018 08/12/2019 Impaired fasting glucose 09/03/2017 019 Abrasion of left ear canal 08/28/201708/12 Stool guaiac positive 01/19/2016 08/01/2018 Hyperuricemia 10/30/2014 08/12/2019 Neurodermatitis 07/12/2011 08/01/2018 documented as of this encounter (statuses as of 04/19/2022) [facility] Narrative* Problem Noted Date Resolved Date High serum parathyroid hormone (PTH) 08/01/2018 08/12/2019 Elevated PTHrP level 07/21/2018 08/12/2019 Impaired fasting glucose 09/03/2017 019 Abrasion of left ear canal 08/28/201708/12 Stool guaiac positive 01/19/2016 08/01/2018 Hyperuricemia 10/30/2014 08/12/2019 Neurodermatitis 07/12/2011 08/01/2018 documented as of this encounter (statuses as of 09/06/2022) [facility] Narrative* Problem Noted Date Resolved Date High serum parathyroid hormone (PTH) 08/01/2018 08/12/2019 Elevated PTHrP level 07/21/2018 08/12/2019 Impaired fasting glucose 09/03/2017 019 Abrasion of left ear canal 08/28/201708/12 Stool guaiac positive 01/19/2016 08/01/2018 Hyperuricemia 10/30/2014 08/12/2019 Neurodermatitis 07/12/2011 08/01/2018 documented as of this encounter (statuses as of 09/06/2022) [facility] Narrative* Problem Noted Date Resolved Date High serum parathyroid hormone (PTH) 08/01/2018 08/12/2019 Elevated PTHrP level 07/21/2018 08/12/2019 Impaired fasting glucose 09/03/2017 019 Abrasion of left ear canal 08/28/201708/12 Stool guaiac positive 01/19/2016 08/01/2018 Hyperuricemia 10/30/2014 08/12/2019 Neurodermatitis 07/12/2011 08/01/2018 documented as of this encounter (statuses as of 09/12/2022) [facility] Narrative* Problem Noted Date Resolved Date High serum parathyroid hormone (PTH) 08/01/2018 08/12/2019 Elevated PTHrP level 07/21/2018 08/12/2019 Impaired fasting glucose 09/03/2017 019 Abrasion of left ear canal 08/28/201708/12 Stool guaiac positive 01/19/2016 08/01/2018 Hyperuricemia 10/30/2014 08/12/2019 Neurodermatitis 07/12/2011 08/01/2018 documented as of this encounter (statuses as of 09/16/2022) [address]09-2019 History of Past illness Narrative* Problem Noted Date Resolved Date High serum parathyroid hormone (PTH) 08/01/2018 08/12/2019 Elevated PTHrP level 07/21/2018 08/12/2019 Impaired fasting glucose 09/03/2017 019 Abrasion of left ear canal 08/28/201708/12 Stool guaiac positive 01/19/2016 08/01/2018 Hyperuricemia 10/30/2014 08/12/2019 Neurodermatitis 07/12/2011 08/01/2018 documented as of this encounter (statuses as of 09/16/2022) [facility] Narrative* Problem Noted Date Resolved Date High serum parathyroid hormone (PTH) 08/01/2018 08/12/2019 Elevated PTHrP level 07/21/2018 08/12/2019 Impaired fasting glucose 09/03/2017 019 Abrasion of left ear canal 08/28/201708/12 Stool guaiac positive 01/19/2016 08/01/2018 Hyperuricemia 10/30/2014 08/12/2019 Neurodermatitis 07/12/2011 08/01/2018 documented as of this encounter (statuses as of 10/12/2022) [facility] Narrative* Problem Noted Date Resolved Date High serum parathyroid hormone (PTH) 08/01/2018 08/12/2019 Elevated PTHrP level 07/21/2018 08/12/2019 Impaired fasting glucose 09/03/2017 019 Abrasion of left ear canal 08/28/201708/12 Stool guaiac positive 01/19/2016 08/01/2018 Hyperuricemia 10/30/2014 08/12/2019 Neurodermatitis 07/12/2011 08/01/2018 documented as of this encounter (statuses as of 10/13/2022) [facility] Narrative* Problem Noted Date Resolved Date High serum parathyroid hormone (PTH) 08/01/2018 08/12/2019 Elevated PTHrP level 07/21/2018 08/12/2019 Impaired fasting glucose 09/03/2017 019 Abrasion of left ear canal 08/28/201708/12 Stool guaiac positive 01/19/2016 08/01/2018 Hyperuricemia 10/30/2014 08/12/2019 Neurodermatitis 07/12/2011 08/01/2018 documented as of this encounter (statuses as of 10/21/2022) [facility] Narrative* Problem Noted Date Resolved Date High serum parathyroid hormone (PTH) 08/01/2018 08/12/2019 Elevated PTHrP level 07/21/2018 08/12/2019 Impaired fasting glucose 09/03/2017 019 Abrasion of left ear canal 08/28/201708/12 Stool guaiac positive 01/19/2016 08/01/2018 Hyperuricemia 10/30/2014 08/12/2019 Neurodermatitis 07/12/2011 08/01/2018 documented as of this encounter (statuses as of 11/11/2022) [facility] Narrative* Problem Noted Date Resolved Date High serum parathyroid hormone (PTH) 08/01/2018 08/12/2019 Elevated PTHrP level 07/21/2018 08/12/2019 Impaired fasting glucose 09/03/2017 019 Abrasion of left ear canal 08/28/201708/12 Stool guaiac positive 01/19/2016 08/01/2018 Hyperuricemia 10/30/2014 08/12/2019 Neurodermatitis 07/12/2011 08/01/2018 documented as of this encounter (statuses as of 11/15/2022) [facility] of [facility] Narrative* Problem Noted Date Resolved Date High serum parathyroid hormone (PTH) 08/01/2018 08/12/2019 Elevated PTHrP level 07/21/2018 08/12/2019 Impaired fasting glucose 09/03/2017 019 Abrasion of left ear canal 08/28/201708/12 Stool guaiac positive 01/19/2016 08/01/2018 Hyperuricemia 10/30/2014 08/12/2019 Neurodermatitis 07/12/2011 08/01/2018 documented as of this encounter (statuses as of 12/20/2022) [facility] Narrative* Problem Noted Date Resolved Date High serum parathyroid hormone (PTH) 08/01/2018 08/12/2019 Elevated PTHrP level 07/21/2018 08/12/2019 Impaired fasting glucose 09/03/2017 019 Abrasion of left ear canal 08/28/201708/12 Stool guaiac positive 01/19/2016 08/01/2018 Hyperuricemia 10/30/2014 08/12/2019 Neurodermatitis 07/12/2011 08/01/2018 documented as of this encounter (statuses as of 01/06/2023) [facility] No data available for this section [facility] Evaluation + Plan note Future Appointments Appointment Date:03/11/2022 01:30:00 PM Scheduled Provider: Location:[facility] Appointment Type:CV Hospital Follow Up [facility] Evaluation note* Diagnosis Myocardial infarction involving left anterior descending (LAD) coronary artery, unspecified FL type (HCC)- Primary [facility] Diagnosis Coronary artery disease due to lipid rich plaque- Primary Essential hypertension, benign Mixed hyperlipidemia Gout without tophus Low vitamin D level Elevated PSA Elevated prostate specific antigen (PSA) Medication management Encounter for long-term (current) use of other medications [facility]* Diagnosis Medicare annual wellness visit, subsequent- [...] Other specified counseling [facility]* Diagnosis NSTEMI (non-ST elevated myocardial infarction) (HCC) Acute myocardial infarction, subendocardial infarction, episode of care unspecified Diverticulosis Diverticulosis of colon (without mention of hemorrhage) [facility]* Diagnosis Lower GI bleed- Primary Hemorrhage of gastrointestinal tract, unspecified Situational depression Adjustment disorder with depressed mood 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 Alcohol abuse Alcohol abuse, unspecified H/O non-ST elevation myocardial infarction (NSTEMI) Old myocardial infarction Mixed hyperlipidemia documented in this encounter [facility] note* Diagnosis Essential hypertension, benign- Primary Mixed [...] Gout without tophus [facility] Diagnosis Medicare annual wellness visit, subsequent- [...] ear wax, right [facility] Diagnosis Essential hypertension, benign- Primary Low serum vitamin B12 Anxiety Anxiety state, unspecified [facility] Diagnosis Other specified disorders of kidney and ureter- Primary Essential hypertension, benign Kidney lesion Unspecified disorder of kidney and ureter [facility]* Diagnosis Other specified disorders of kidney and ureter Kidney lesion Unspecified disorder of kidney and ureter documented in this encounter [facility] Discharge instructions No data available for this section [facility] Note* FRANKLIN VAUGHN MD: SIGN, VERIFY Event Display: Percut Transluminal Coronary Angioplasty Authored Date: [facility] Progress note No data available for this section [facility] Reason for Referral Specialty Diagnoses / Procedures Referred By Contac t Referred To Contact CT IMAGING Diagnoses Other specified disorders of kidney and ureter Kidney lesion Procedures CT KIDNEY WO/W IVCON CT ABDOMEN W & W/O CONTRAST Valeriano Choe MD [address] [place] [address] [place] [address] Referral ID Status Reason Start Date Expiration Date Visits Requested Visits Authorized [id number] Authorized Auto-Generat ed Referral 08/21/2023 09/19/2024 1 1 Specialty Diagnoses / Procedures Referred By Contac t Referred To Contact Neurology Diagnoses Balance problems Atrophy of muscle of right shoulder Atrophy of muscle of other site Procedures CONSULT TO NEUROLOGY OFFICE/OUTPATIENT [facility] 60-74 MINUTES Valeriano Choe MD [address] [place] [address] Referral ID Status Reason Start Date Expiration Date Visits Requested Visits Authorized [id number] Pending Review PCP Requested Referral 04/20/2023 04/19/2024 1 1 Specialty Diagnoses / Procedures Referred By Contac t Referred To Contact Cardiology Diagnoses Myocardial infarction involving left anterior descending (LAD) coronary artery, unspecified FL type (HCC) Procedures CONSULT TO CARDIOLOGY OFFICE/OUTPATIENT [facility] 60-74 MINUTES Tessa Donato, [address] [address] [place] [address] Referral ID Status Reason Start Date Expiration Date Visits Requested Visits Authorized [id number] Pending Review PCP Requested Referral 01/01/2022 01/01/2023 1 1 Summary Purpose Family History No Family History Records FoundNo Family History Records FoundNo Family History Records Found Advance Directives No Advanced Directives Records FoundNo Advanced Directives Records FoundNo Advanced Directives Records Found Additional Source Comments Care Team (unrecognized sect ion and content) Machine Pecan Picker Relationship Specialty Start Date End Date Valeriano Choe MD [address] [place], [place] [id number] PCP - General Family Practice 03/15/21 Machine Pecan Picker Relationship Specialty Start Date End Date Valeriano Choe MD [address] [place], [place] [id number] PCP - General Family Practice 03/15/21 Machine Pecan Picker Relationship Specialty Start Date End Date Valeriano Choe MD [address] [facility] [place] [address] PCP - General Family Medicine 03/15/21 Machine Pecan Picker Relationship Specialty Start Date End Date Valeriano Choe MD [address] [facility] [place] [address] PCP - General Family Medicine 03/15/21 Machine Pecan Picker Relationship Specialty Start Date End Date Valeriano Choe MD [facility] [place] [address] PCP - General Family Medicine 03/15/21 Machine Pecan Picker Relationship Specialty Start Date End Date Valeriano Choe MD [address] [place] [address], [place] [address] PCP - General Family Medicine 03/15/21 Machine Pecan Picker Relationship Specialty Start Date End Date Valeriano Choe MD [facility] [place] [address] PCP - General Family Medicine 03/15/21 Machine Pecan Picker Relationship Specialty Start Date End Date Valeriano Choe MD [address] [place] [address], [place] [address] PCP - General Family Medicine 03/15/21 Machine Pecan Picker Relationship Specialty Start Date End Date Valeriano Choe MD [address] [place] [address], [place] [address] PCP - General Family Medicine 03/15/21 Machine Pecan Picker Relationship Specialty Start Date End Date Valeriano Choe MD [address] [place] [address], [place] [address] PCP - General Family Medicine 03/15/21 Machine Pecan Picker Relationship Specialty Start Date End Date Valeriano Choe MD [address] [place] [address], [place] [address] PCP - General Family Medicine 03/15/21 Machine Pecan Picker Relationship Specialty Start Date End Date Valeriano Choe MD [address] [place] [address] PCP - General Family Medicine 03/15/21 Machine Pecan Picker Relationship Specialty Start Date End Date Valeriano Choe MD [address] [place] [address] PCP - General Family Medicine 03/15/21 Machine Pecan Picker Relationship Specialty Start Date End Date Valeriano Choe MD [address] [place] [address] PCP - General Family Medicine 03/15/21 Machine Pecan Picker Relationship Specialty Start Date End Date Valeriano Choe MD [address] [place] [address] PCP - General Family Medicine 03/15/21 Machine Pecan Picker Relationship Specialty Start Date End Date Valeriano Choe MD [address] [place] [address] PCP - General Family Medicine 03/15/21 Machine Pecan Picker Relationship Specialty Start Date End Date Valeriano Choe MD [address] [place] [address] PCP - General Family Medicine 03/15/21 Machine Pecan Picker Relationship Specialty Start Date End Date Valeriano Choe MD [address] [place] [address] PCP - General Family Medicine 03/15/21 Machine Pecan Picker Relationship Specialty Start Date End Date Valeriano Choe MD [address] [place] [address] PCP - General Family Medicine 03/15/21 Machine Pecan Picker Relationship Specialty Start Date End Date Valeriano Choe MD [address] [place] [address] PCP - General Family Medicine 03/15/21 Machine Pecan Picker Relationship Specialty Start Date End Date Valeriano Choe MD [address] [place] [address] PCP - General Family Medicine 03/15/21 Source Comments (unrecognize d section and content) In the event this informatio n is protected by the Federal Confidentiality of Alcohol and Drug Abuse Patient Records regulations: The Federal rules restrict any use of the information to criminally investigate or prosecute any alcohol or drug abuse patient.[facility] the event this information is protected by the Federal Confidentiality of Alcohol and Drug Abuse Patient Records regulations: The Federal rules restrict any use of the information to criminally investigate or prosecute any alcohol or drug abuse patient.[facility] the event this information is protected by the Federal Confidentiality of Alcohol and Drug Abuse Patient Records regulations: The Federal rules restrict any use of the information to criminally investigate or prosecute any alcohol or drug abuse patient.[facility] the event this information is protected by the Federal Confidentiality of Alcohol and Drug Abuse Patient Records regulations: The Federal rules restrict any use of the information to criminally investigate or prosecute any alcohol or drug abuse patient.[facility] the event this information is protected by the Federal Confidentiality of Alcohol and Drug Abuse Patient Records regulations: The Federal rules restrict any use of the information to criminally investigate or prosecute any alcohol or drug abuse patient.[facility] the event this information is protected by the Federal Confidentiality of Alcohol and Drug Abuse Patient Records regulations: The Federal rules restrict any use of the information to criminally investigate or prosecute any alcohol or drug abuse patient.[facility] the event this information is protected by the Federal Confidentiality of Alcohol and Drug Abuse Patient Records regulations: The Federal rules restrict any use of the information to criminally investigate or prosecute any alcohol or drug abuse patient.[facility] the event this information is protected by the Federal Confidentiality of Alcohol and Drug Abuse Patient Records regulations: The Federal rules restrict any use of the information to criminally investigate or prosecute any alcohol or drug abuse patient.[facility] the event this information is protected by the Federal Confidentiality of Alcohol and Drug Abuse Patient Records regulations: The Federal rules restrict any use of the information to criminally investigate or prosecute any alcohol or drug abuse patient.[facility] the event this information is protected by the Federal Confidentiality of Alcohol and Drug Abuse Patient Records regulations: The Federal rules restrict any use of the information to criminally investigate or prosecute any alcohol or drug abuse patient.[facility] the event this information is protected by the Federal Confidentiality of Alcohol and Drug Abuse Patient Records regulations: The Federal rules restrict any use of the information to criminally investigate or prosecute any alcohol or drug abuse patient.[facility] the event this information is protected by the Federal Confidentiality of Alcohol and Drug Abuse Patient Records regulations: The Federal rules restrict any use of the information to criminally investigate or prosecute any alcohol or drug abuse patient.[facility] the event this information is protected by the Federal Confidentiality of Alcohol and Drug Abuse Patient Records regulations: The Federal rules restrict any use of the information to criminally investigate or prosecute any alcohol or drug abuse patient.[facility] the event this information is protected by the Federal Confidentiality of Alcohol and Drug Abuse Patient Records regulations: The Federal rules restrict any use of the information to criminally investigate or prosecute any alcohol or drug abuse patient.[facility] the event this information is protected by the Federal Confidentiality of Alcohol and Drug Abuse Patient Records regulations: The Federal rules restrict any use of the information to criminally investigate or prosecute any alcohol or drug abuse patient.[facility]In the event this information is protected by the Federal Confidentiality of Alcohol and Drug Abuse Patient Records regulations: The Federal rules restrict any use of the information to criminally investigate or prosecute any alcohol or drug abuse patient.[facility]In the event this information is protected by the Federal Confidentiality of Alcohol and Drug Abuse Patient Records regulations: The Federal rules restrict any use of the information to criminally investigate or prosecute any alcohol or drug abuse patient.[facility]In the event this information is protected by the Federal Confidentiality of Alcohol and Drug Abuse Patient Records regulations: The Federal rules restrict any use of the information to criminally investigate or prosecute any alcohol or drug abuse patient.[facility] the event this information is protected by the Federal Confidentiality of Alcohol and Drug Abuse Patient Records regulations: The Federal rules restrict any use of the information to criminally investigate or prosecute any alcohol or drug abuse patient.[facility]In the event this information is protected by the Federal Confidentiality of Alcohol and Drug Abuse Patient Records regulations: The Federal rules restrict any use of the information to criminally investigate or prosecute any alcohol or drug abuse patient.[facility]In the event this information is protected by the Federal Confidentiality of Alcohol and Drug Abuse Patient Records regulations: The Federal rules restrict any use of the information to criminally investigate or prosecute any alcohol or drug abuse patient.[facility]In the event this information is protected by the Federal Confidentiality of Alcohol and Drug Abuse Patient Records regulations: The Federal rules restrict any use of the information to criminally investigate or prosecute any alcohol or drug abuse patient.[facility]In the event this information is protected by the Federal Confidentiality of Alcohol and Drug Abuse Patient Records regulations: The Federal rules restrict any use of the information to criminally investigate or prosecute any alcohol or drug abuse patient.[facility]In the event this information is protected by the Federal Confidentiality of Alcohol and Drug Abuse Patient Records regulations: The Federal rules restrict any use of the information to criminally investigate or prosecute any alcohol or drug abuse patient.[facility]In the event this information is protected by the Federal Confidentiality of Alcohol and Drug Abuse Patient Records regulations: The Federal rules restrict any use of the information to criminally investigate or prosecute any alcohol or drug abuse patient.[facility]In the event this information is protected by the Federal Confidentiality of Alcohol and Drug Abuse Patient Records regulations: The Federal rules restrict any use of the information to criminally investigate or prosecute any alcohol or drug abuse patient.[facility]In the event this information is protected by the Federal Confidentiality of Alcohol and Drug Abuse Patient Records regulations: The Federal rules restrict any use of the information to criminally investigate or prosecute any alcohol or drug abuse patient.[facility]In the event this information is protected by the Federal Confidentiality of Alcohol and Drug Abuse Patient Records regulations: The Federal rules restrict any use of the information to criminally investigate or prosecute any alcohol or drug abuse patient.[facility] Reason for Visit (unrecogniz ed section and content) Reason Comments Insurance Authorization Reason Comments Orders Reason Comments Medicare Wellness Exam Reason Comments Consult Consult [facility] Reason Comments Results EGD results - [facility] Reason Comments Hospital F/U Reason Comments Results [...] Date Comments Population Health Navigation Outreach 08/25/2023 [facility] AW[facility] Reason Comments Radiology CT Specialty Diagnoses / Procedures Referred By Sarkis t Referred To Contact CT IMAGING Diagnoses Other specified disorders of kidney and ureter Kidney lesion Procedures CT KIDNEY WO/W IVCON CT ABDOMEN W & W/O CONTRAST Valeriano Choe MD [address] [place] [address] [place] [address] Referral ID Status Reason Start Date Expiration Date V isits Requested Visits Authorized [id number] Closed Auto-Generate d Referral 08/21/2023 09/19/2024 1 1 Reason Comments Outside Orthopedics Reason Comments outside imaging Reason Comments Outside Cardiology labs Reason Comments [facility] Reason Onset Date Comments Refill Request 09/25/2023 Care Team (unrecognized sect ion and content) Care Team Personnel Name: VALERIANO CHOE MD Member Role: Primary Care Physician Address: Address: [address] [place] [address]- Care Team Related Persons Name: JOSE HUTTON (unrecognized sect ion and content) No Status Records FoundNo Status Records FoundNo Status Records Found INFORMATION SOURCE (unrecogn ized section and content) DATE CREATED AUTHOR AUTHOR'S ORGANIZ ATION 08/11/2023 [facility] DATE CREATED AUTHOR AUTHOR'S ORGANIZ ATION 09/07/2023 [facility] FOR RECORDS PERTAINING TO PATIENTS [...] BE BASED ON THE PRIMARY CLINICAL RECORDS. [facility] [employer] [facility]. provides no warranty or guarantee of the accuracy or completeness of information in this document.
== END | disposition home or self-care (01) ==
LOC: CVS 06:53
PROVIDERS: PCP Family Medicine; Referring Provider Nurse Practitioner Gerontology; Visit Provider Nurse Practitioner Gerontology
DX: R06.02 Shortness of breath (principal); R42 Dizziness and giddiness
CPT/HCPCS: 93306; 93880; Q9957; A4216; C8929

== ENCOUNTER → 2023-12-13 | Outpatient (CLI) | payer MEDICARE, SELFPAY ==
[2023-08-23 15:18] VITALS: BMI 28.3
--- NOTE | 2023-12-18 11:07 | STRESSREP ---
Stress Test Report Date: 12/13/2023 Procedure: Pharmacologic stress nuclear imaging study Indications: CAD Consent: Per the patient Procedure: The patient underwent pharmacologic (Regadenoson) evaluation with a peak heart rate of 76 beats per minute (51%predicted maximal heart rate) and a peak blood pressure of 140/80 mmHg. The baseline ECG demonstrated normal sinus rhythm, left bundle branch block. EKG during lexiscan infusion revealed no significant ischemic changes. EKG post infusion revealed no significant ischemic changes [There were no cardiac dysrhythmias pretest, during pharmacologic infusion, or recovery]. [There was no complaint of chest discomfort during pharmacologic infusion or recovery]. The examination was discontinued secondary to completion of protocol. Impression: 1. Lexiscan stress test test is negative for Lexiscan infusion induced EKG changes of ischemia. 2. Lexiscan stress test test is negative for Lexiscan infusion induced chest pain. 3. Results of the nuclear portion of the test is as below Myocardial perfusion imaging study: Technique: The patient was injected with 14.2 millicuries of technetium 99m Cardiolite and subsequently rest SPECT Cardiolite nuclear imaging was obtained in the horizontal long, vertical long, and short axis views. The patient underwent pharmacologic [Regadenoson 0.4mg] evaluation. Please see above for details. The patient was injected with 44.7 millicuries of technetium 99m Cardiolite and subsequently stress SPECT Cardiolite nuclear imaging was obtained in the horizontal long, vertical long, and short axis views. A gated Cardiolite study at peak stress was obtained. Interpretation: Rest and stress SPECT Cardiolite nuclear imaging status post realignment, normalization, and attenuation correction demonstrate mild fixed decrease in the radioisotope uptake in the apex on both the rest and stress images. No significant reversibility suggestive of significant ischemia. Gated images reveal apical and septal hypokinesis. These findings are suggestive of prior apical myocardial infarction with no evidence of significant ischemia. The reported LVEF is 48%. Impression: 1. There is no evidence of significant ischemia. Prior apical myocardial infarction. 2. Estimated ejection fraction is 48%. This note was generated with [employer] software. It may contain incorrect words, spelling, and punctuation that were not noted in checking the note before signing.
== END | disposition home or self-care (01) ==
LOC: CVS 06:33
PROVIDERS: PCP Family Medicine
DX: I25.10 Atherosclerotic heart disease of native coronary artery without angina pectoris (principal); I10 Essential (primary) hypertension; E78.5 Hyperlipidemia, unspecified
CPT/HCPCS: 78452; 93017; A9500; A4216; J2785

== ENCOUNTER 2024-03-29 11:34 | Emergency (ER) | payer MEDICARE, SELFPAY ==
[2023-08-23 15:18] VITALS: BMI 28.3
[2024-03-29] VITALS (12 sets, daily range): BP systolic 128–163; BP diastolic 69–93; PULSE 69–95; RESP 14–20; TEMP 36.6–36.7; O2SAT 92–99; BMI 29.9
--- NOTE | 2024-03-29 11:43 | EX.ED.DYSGE1 ---
HPI History of Present Illness Chief Complaint: Allergic Reaction Narrative Narrative: 70-year-old male past medical history of hypertension, neuropathy, presents with tongue swelling since around 9:00 this morning, approximately 2-1/2 hours ago. He has not taken any medications this morning. States yesterday he took some Tylenol. [facility]. He denies any throat closing or difficulty swallowing, states that his tongue is swollen. He states he has not taken any JOSE inhibitor or lisinopril in years. No exacerbating or alleviating factors. [facility] Medical History Essential hypertension Chest pain Anxiety Depression Myocardial infarct Chest pain Acute blood loss anemia Bloody diarrhea Coronary artery disease Atherosclerotic heart disease of [place] coronary artery without angina pectoris ST elevation CO (STEMI) (~11/29/21) Hyperlipidemia Hypertension Home Medications ?Medication ?Instructions ?Recorded ?Last Taken ?Type allopurinol 100 mg tablet 100 mg PO DAILY GOUT 03/25/22 09/02/22 History atenolol 50 mg tablet 50 mg PO DAILY HEART 03/25/22 09/02/22 History atorvastatin 80 mg tablet 80 mg PO DAILY CHOLESTEOL 03/25/22 09/01/22 History aspirin 81 mg tablet,delayed 81 mg PO DAILY HEALTH MAINTENANCE 09/02/22 09/02/22 History release ezetimibe 10 mg tablet 10 mg PO DAILY CHOLESTEROL 09/02/22 09/01/22 History nitroglycerin 0.4 mg sublingual 0.4 mg sublingual UD PRN Chest Pain 09/02/22 Unknown History tablet ascorbic acid (vitamin C) 500 mg 1,000 mg (2 x 500 mg) PO BIDCM 30 09/09/22 Unknown Rx tablet days #120 tabs sertraline 50 mg tablet 50 mg PO DAILY 10/19/22 Unknown History doxepin 25 mg capsule 25 mg PO QHS PRN 12/09/22 Unknown History losartan 25 mg tablet 25 mg PO DAILY 01/05/23 Unknown History cholecalciferol (vitamin D3) 125 125 mcg PO DAILY 09/01/23 Unknown History mcg (5,000 unit) capsule diphenhydramine HCl 25 mg tablet 25 mg PO QHS PRN 09/01/23 Unknown History (Allergy (diphenhydramine)) omega 3-dha 100 mg-epa 400 mg-fish cap PO 09/01/23 Unknown History oil 1,000 mg capsule vitamin B complex (B 1 tab PO DAILY 09/01/23 Unknown History Complex-Vitamin B12 tablet) furosemide 40 mg tablet (Lasix) 40 mg PO DAILY #5 tabs 09/06/23 Unknown Rx famotidine 20 mg tablet (Pepcid) 20 mg PO DAILY #7 tabs 03/29/24 Unknown Rx prednisone 20 mg tablet 40 mg (2 x 20 mg) PO DAILY #14 tabs 03/29/24 Unknown Rx Allergy/AdvReac Type Severity Reaction Status Date / Time hydrochlorothiazide Allergy Hives Verified 03/29/24 11:36 Family History Mother COPD (chronic obstructive pulmonary disease) Lung cancer Father Heart disease Hypertension Myocardial infarction age 53 following CO. Surgical History S/P cataract extraction Presence of coronary angioplasty implant and graft (~11/29/21) Social History household members: none Smoking Status: Former smoker how long ago did patient quit smoking: Smoked from age 18, 1 ppd x 4 years and then quit. alcohol intake: current alcohol intake frequency: 3 or more drinks per day details: Drinks 6 pack beer/day x 1 year following of his . substance use type: does not use ROS ROS ED ROS Narrative Constitutional: No fever, no chills. HEENT: No sore throat. No neck pain. No loss of vision. No rhinorrhea. Positive tongue swelling. No throat closing. No difficulty swallowing. Cardiovascular: No chest pain. No palpitations. No pedal edema. Respiratory: No cough, no shortness of breath. Abdominal: No abdominal pain. No nausea. No vomiting. Genitourinary: No dysuria. No hematuria. Musculoskeletal: No myalgias. No arthralgias. Neurologic: No headaches. No dizziness. No lightheadedness. Skin: No rash. No change in color. Psychiatric: No depression. No anxiety. EXAM Physical Exam Narrative Exam Narrative: Afebrile. Vital signs noted. HEENT examination does show angioedema of the tongue and underneath. Airway is patent. No drooling or trismus. He is able to phonate. Neck is soft and supple without meningismus. Cardiovascular examination reveals a regular rate and rhythm. Lungs are clear to auscultation bilaterally. Abdomen soft nontender with normal active bowel sounds. Neurological examination nonfocal and nonlateralizing. Const Vital Signs: 03/29/24 11:36 03/29/24 12:05 03/29/24 12:30 Temperature 97.8 F Temperature Source Temporal Pulse Rate 80 78 95 Respiratory Rate 18 18 14 Blood Pressure 163/93 H 144/76 H 129/77 H Blood Pressure Mean 116 98 94 Pulse Ox 99 96 96 Oxygen Delivery Method Room Air Room Air Room Air 03/29/24 13:00 03/29/24 13:30 03/29/24 13:59 Temperature Temperature Source Pulse Rate 82 71 69 Respiratory Rate 16 19 H 14 Blood Pressure 128/73 H 136/84 H 141/74 H Blood Pressure Mean 91 101 96 Pulse Ox 94 97 92 Oxygen Delivery Method Room Air Room Air Room Air 03/29/24 14:30 03/29/24 15:00 03/29/24 15:30 Temperature Temperature Source Pulse Rate 74 84 74 Respiratory Rate 20 H 20 H 16 Blood Pressure 138/69 H 155/80 H 152/82 H Blood Pressure Mean 92 105 105 Pulse Ox 93 93 96 Oxygen Delivery Method Room Air Room Air Room Air 03/29/24 16:00 Temperature Temperature Source Pulse Rate 74 Respiratory Rate 16 Blood Pressure 154/87 H Blood Pressure Mean 109 Pulse Ox 96 Oxygen Delivery Method Room Air MDM MDM MDM Narrative Medical decision making narrative: I reviewed his medication list. Concern is for angioedema of the tongue. While he denies any throat closing, he was informed of the risk of the need for elective intubation should his symptoms progressed further. Currently, pulse ox 99% on room air. He will be administered Benadryl, Solu-Medrol, and Pepcid and monitored. After 1 hour, repeat examination shows him to have mild improvement. He was continued to be monitored here in the emergency department at the 4-hour eric, he has shown significant improvement. He has no drooling or trismus. Through shared decision making, I feel he can be discharged to follow-up. I am unsure as to the cause of his angioedema but he was told to continue Benadryl every 4-6 hours as needed and I wrote him a prescription for a burst of steroids to 40 mg daily for the next week as well as 20 mg of Pepcid daily. He will return with increased swelling of his tongue, new or worsening symptoms. I did offer him observation, but he declined. I feel this is reasonable as he has shown significant improvement in his tongue swelling and he never had difficulty breathing or swallowing. Disposition is discharged home in improved and stable condition. History & Record Review Discussion w/independent historian: Patient Discharge Plan Triage Chief Complaint: Allergic Reaction ED Provider: Luis Frank Dx/Rx/DC Orders Clinical Impression: Angioedema, Tongue swelling Instructions: ED General Allergic Reactions, ED Angioedema Prescriptions: New prednisone 20 mg tablet 40 mg PO DAILY Qty: 14 0RF famotidine [Pepcid] 20 mg tablet 20 mg PO DAILY Qty: 7 0RF No Action sertraline 50 mg tablet 50 mg PO DAILY losartan 25 mg tablet 25 mg PO DAILY cholecalciferol (vitamin D3) 125 mcg (5,000 unit) capsule 125 mcg PO DAILY diphenhydramine HCl [Allergy (diphenhydramine)] 25 mg tablet 25 mg PO QHS PRN vitamin B complex [B Complex-Vitamin B12] Tablet 1 tab PO DAILY omega 9-pvp-urs-fish oil 100-400-1,000 mg capsule PO atorvastatin 80 mg Tablet 80 mg PO DAILY allopurinol 100 mg Tablet 100 mg PO DAILY atenolol 50 mg Tablet 50 mg PO DAILY doxepin 25 mg capsule 25 mg PO QHS PRN aspirin 81 mg tablet,delayed release (DR/EC) 81 mg PO DAILY Patient Comments: TAKE 1 TABLET BY MOUTH EVERY DAY nitroglycerin 0.4 mg tablet, sublingual 0.4 mg sublingual UD PRN (Reason: Chest Pain) Patient Comments: PLACE 1 TABLET UNDER TONGUE EVERY 5 MINS, UP TO 3 DOSES NEEDED FOR CHEST PAIN Rx Instructions: PLACE 1 TABLET UNDER TONGUE EVERY 5 MINS, UP TO 3 DOSES NEEDED FOR CHEST PAIN ezetimibe 10 mg tablet 10 mg PO DAILY ascorbic acid (vitamin C) 500 mg Tablet 1,000 mg PO BIDCM 30 Days Qty: 120 0RF Rx Instructions: Take with iron tablets furosemide [Lasix] 40 mg tablet 40 mg PO DAILY Qty: 5 0RF Primary Care Provider: Valeriano Beasley Referrals: Valeriano Beasley MD [Primary Care Provider] - 1-2 Days if not improving Activity Restrictions/Additional Instructions: Return with increase swelling of your tongue, difficulty swallowing, new or worsening symptoms. Take the prednisone and Pepcid as directed for the next week. Print Language: Macanese
[2024-03-29] MEDS: DiphenhydrAMINE 50 MG/ML Syringe IV (11:45)
[2024-03-29] MEDS: MethylPREDNISolone 125 MG/2 ML Vial IV (11:45)
[2024-03-29] MEDS: Famotidine 200 MG/20 ML MDV 20 MG in 0.9% Normal Saline (Pres. free 8 ML 300 MG IV (11:50)
== END 2024-03-29 16:57 | disposition home or self-care (01) ==
LOC: ED 12:18
PROVIDERS: Emergency Provider Emergency Medicine; PCP Family Medicine; Visit Provider Emergency Medicine
DX: T78.3XXA Angioneurotic edema, initial encounter (principal); I25.10 Atherosclerotic heart disease of native coronary artery without angina pectoris; I25.2 Old myocardial infarction; Z87.891 Personal history of nicotine dependence; X58.XXXA Exposure to other specified factors, initial encounter
CPT/HCPCS: 96374; 96375; 96376; 99285; J7030; A4216; J3490

== ENCOUNTER → 2024-05-14 | Outpatient (CLI) | payer MEDICARE, SELFPAY ==
[2023-08-23 15:18] VITALS: BMI 28.3
--- NOTE | 2024-05-14 09:18 | US_ITS ---
STUDY: ABDOMINAL ULTRASOUND - RIGHT UPPER QUADRANT; ELASTOGRAPHY REASON FOR VISIT: Male, 73 years old. Elevated liver enzymes. TECHNIQUE: Ultrasound evaluation of the right upper quadrant was performed with real-time and static alvarado-scale imaging. Point quantification shear wave elastography was performed ([employer]). TECHNICAL QUALITY: Limited. Examination limited due to a combination of factors including obesity and bowel gas. COMPARISON: None. FINDINGS: Liver: The liver is enlarged and measures 18.7 cm. There is increased echogenicity consistent with fatty infiltration. The bile ducts are within normal limits. There is hepatic color flow. The direction of portal flow is hepatopetal. There is no demonstrated mass lesion. Median liver stiffness measured 18.5 kPa. Gallbladder: Normal distended gallbladder. The gallbladder wall measures 2.0 mm. There is a negative sonographic Brizuela''s sign. There is no pericholecystic fluid. There are no gallstones. Common Bile Duct (C.B.D.): The common bile duct measures 5 mm. Pancreas: There is normal echogenicity of the visualized pancreas. There is no demonstrated pancreatic mass or cyst. Right Kidney: Normal size of the right kidney. The right kidney measures 12.6 x 5.2 cm x 6.5 cm. Normal renal cortex. The right cortex measures 1.9 cm. There is a 1.6 cm x 1.6 x 1.2 cm renal cyst. Nonobstructive intrarenal calculi seen in the lower pole. The larger measures 1.6 times by 1.7 cm x 0.8. There is no right hydronephrosis. US/ABD Limited w/ Elastography IMPRESSION: 1. Liver stiffness measures 18.5 kPa compatible with F3-F4 (Moderate to severe liver fibrosis) Metavir score. 2. Right renal cysts. 3. Nonobstructive right intrarenal calculi. 4. Indication liver and hepatomegaly. Electronically Signed: Raymundo Pretty MD at 14:21 EDT ,
== END | disposition home or self-care (01) ==
LOC: US 09:13
PROVIDERS: PCP Family Medicine; Referring Provider Physician Assistant; Visit Provider Physician Assistant
DX: R79.89 Other specified abnormal findings of blood chemistry (principal); F10.10 Alcohol abuse, uncomplicated; E66.3 Overweight; Z68.29 Body mass index [BMI] 29.0-29.9, adult
CPT/HCPCS: 76705; 76981

== ENCOUNTER 2024-07-18 10:15 | Emergency (ER) | payer MEDICARE, SELFPAY ==
[2023-08-23 15:18] VITALS: BMI 28.3
[2024-07-18 10:16] VITALS: BP 153/103; PULSE 75; RESP 17; TEMP 36.2; O2SAT 98; BMI 31.2
--- NOTE | 2024-07-18 10:22 | EDS_ITS ---
HPI History of Present Illness Chief Complaint: Allergic Reaction Informant: patient Narrative Narrative: 73-year-old male presenting to the emergency room with tongue swelling. Patient states that shortly after getting up this morning he began to notice that the left side of his tongue was swollen. This happened to him once before in March of this year. He states he is not currently on an JOSE inhibitor. He notes the tongue is getting in the way of him speaking normally. He is not having any drooling or wheezing. He denies any rash. [facility] Medical History High serum parathyroid hormone (PTH) Heart murmur Elevated alkaline phosphatase level Elevated PSA Diverticulosis AVM (arteriovenous malformation) of colon Vitamin D deficiency Gout Alcohol abuse Essential hypertension Chest pain Anxiety Depression Myocardial infarct Chest pain Acute blood loss anemia Bloody diarrhea Coronary artery disease Atherosclerotic heart disease of [place] coronary artery without angina pectoris ST elevation [place] (STEMI) (~11/29/21) Hyperlipidemia Hypertension Home Medications ?Medication ?Instructions ?Recorded ?Last Taken ?Type allopurinol 100 mg tablet 100 mg PO DAILY GOUT 03/25/22 09/02/22 History atenolol 50 mg tablet 50 mg PO DAILY HEART 03/25/22 09/02/22 History atorvastatin 80 mg tablet 80 mg PO DAILY CHOLESTEOL 03/25/22 09/01/22 History aspirin 81 mg tablet,delayed 81 mg PO DAILY HEALTH MAINTENANCE 09/02/22 09/02/22 History release ezetimibe 10 mg tablet 10 mg PO DAILY CHOLESTEROL 09/02/22 09/01/22 History nitroglycerin 0.4 mg sublingual 0.4 mg sublingual UD PRN Chest Pain 09/02/22 Unknown History tablet ascorbic acid (vitamin C) 500 mg 1,000 mg (2 x 500 mg) PO BIDCM 30 09/09/22 Unknown Rx tablet days #120 tabs cholecalciferol (vitamin D3) 125 125 mcg PO DAILY 09/01/23 Unknown History mcg (5,000 unit) capsule diphenhydramine HCl 25 mg tablet 25 mg PO QHS PRN 09/01/23 Unknown History (Allergy (diphenhydramine)) omega 3-dha 100 mg-epa 400 mg-fish cap PO 09/01/23 Unknown History oil 1,000 mg capsule vitamin B complex (B 1 tab PO DAILY 09/01/23 Unknown History Complex-Vitamin B12 tablet) amlodipine 10 mg tablet 10 mg PO QDAY 04/15/24 Unknown History isosorbide mononitrate 30 mg 30 mg PO QAM 04/15/24 Unknown History tablet,extended release 24 hr sertraline 100 mg tablet 100 mg PO QDAY 06/04/24 Unknown History famotidine 20 mg tablet (Pepcid) 20 mg PO BID #10 tabs 07/18/24 Unknown Rx prednisone 20 mg tablet 60 mg (3 x 20 mg) PO DAILY #15 07/18/24 Unknown Rx TABLETS Allergy/AdvReac Type Severity Reaction Status Date / Time losartan Allergy Severe Angioedema Verified 07/18/24 11:03 hydrochlorothiazide Allergy Hives Verified 07/18/24 10:16 Family History Mother COPD (chronic obstructive pulmonary disease) Lung cancer Father Heart disease Hypertension Myocardial infarction age 53 following [place]. Surgical History H/O colonoscopy S/P cataract extraction Presence of coronary angioplasty implant and graft (~11/29/21) Social History household members: none Smoking Status: Former smoker how long ago did patient quit smoking: Smoked from age 18, 1 ppd x 4 years and then quit. alcohol intake: current alcohol intake frequency: a few times a week Alcohol type: beer substance use type: does not use ROS ROS ED Constitutional Constitutional ED: Denies chills or weight loss Eyes Eyes: Denies change in vision or diplopia ENT ENT ED: Reports other Details: See history of present illness ; Denies ear pain, rhinorrhea or sore throat Cardiovascular Cardiovascular: Denies chest pain, orthopnea, palpitations or racing heartbeat Respiratory/Chest Respiratory/Chest: Denies cough, dyspnea or orthopnea Gastrointestinal Gastrointestinal: Denies abdominal pain, diarrhea, nausea or vomiting Genitourinary Genitourinary ED: Denies dysuria, hematuria or urinary frequency Musculoskeletal Musculoskeletal: Denies arthralgias or myalgias Integumentary Denies abscess or rash Neurologic Neurologic: Denies headache(s) or weakness Psychiatric Psychiatric: Denies anxiety, depression, suicidal ideation or suicidal thoughts Endocrine Endocrinology: Denies polydipsia, polyphagia or polyuria Allergic/Immunologic Allergic/Immunologic ED: Denies mouth swelling, tongue swelling or urticaria EXAM Physical Exam Const Vital Signs: 07/18/24 10:16 07/18/24 11:03 07/18/24 12:00 Temperature 97.2 F L Temperature Source Oral Pulse Rate 75 67 62 Respiratory Rate 17 16 12 Blood Pressure 153/103 H 145/84 H 157/83 H Blood Pressure Mean 119 104 107 Pulse Ox 98 95 93 Oxygen Delivery Method Room Air Room Air Room Air 07/18/24 13:00 07/18/24 13:58 07/18/24 14:16 Temperature 98.5 F Temperature Source Pulse Rate 68 67 73 Respiratory Rate 15 14 19 H Blood Pressure 170/84 H 167/89 H 155/79 H Blood Pressure Mean 112 115 104 Pulse Ox 95 96 96 Oxygen Delivery Method Room Air Room Air Positive well nourished and well developed General Appearance ED: well developed HEENT Reports normocephalic, head/scalp atraumatic and moist mucous membranes HEENT Narrative: Patient demonstrates swelling of his tongue mostly on the left. Floor the mouth is soft. Uvula appears normal. He is not drooling. There is no trismus. I am understanding conversation with him. Eyes PERRL and EOMs intact bilaterally Neck no lymphadenopathy, supple and no JVD Resp normal respiratory effort and clear to auscultation bilaterally Cardio regular rate, regular rhythm and no murmurs GI normal to inspection, nondistended, normoactive bowel sounds and non-tender Palpation: soft Back/Spine no CVA tenderness and normal ROM Extremity normal to inspection General Extremety ED: Negative for edema General Extremity: Negative for edema Neuro oriented x3 and CN's II-XII intact bilaterally Sensorium / Orientation: alert Motor Exam: strength 5/5 throughout Psych mental status grossly normal Mood & Affect: Negative for depressed or tearful Skin no rashes or lesions noted and no wounds MDM MDM MDM Narrative Medical decision making narrative: Differential diagnosis includes acute localized reaction anaphylactic shock angioedema urticaria complement deficiencies Based on the patient's symptomology and the fact that he has had this once before and that he get good response to Solu-Medrol Benadryl and Pepcid we administered the same. He was watched for approximately 4 hours he has near complete resolution of the tongue swelling. At this point I think it is reasonable that we discharged the patient home with precautions. I will be writing for prednisone and Pepcid. I discussed with him that I would recommend him following up with an screen printing stencil preparer at some point. Family was present during this conversation. History & Record Review Discussion w/independent historian: Patient Discharge Plan Triage Chief Complaint: Allergic Reaction ED Provider: Stan Gilbert Dx/Rx/DC Orders Clinical Impression: Angioedema Instructions: ED Angioedema Prescriptions: New famotidine [Pepcid] 20 mg tablet 20 mg PO BID Qty: 10 0RF prednisone 20 mg tablet 60 mg PO DAILY Qty: 15 0RF No Action cholecalciferol (vitamin D3) 125 mcg (5,000 unit) capsule 125 mcg PO DAILY diphenhydramine HCl [Allergy (diphenhydramine)] 25 mg tablet 25 mg PO QHS PRN vitamin B complex [B Complex-Vitamin B12] Tablet 1 tab PO DAILY omega 5-exw-ful-fish oil 100-400-1,000 mg capsule PO isosorbide mononitrate 30 mg tablet extended release 24 hr 30 mg PO QAM amlodipine 10 mg tablet 10 mg PO QDAY sertraline 100 mg tablet 100 mg PO QDAY atorvastatin 80 mg Tablet 80 mg PO DAILY allopurinol 100 mg Tablet 100 mg PO DAILY atenolol 50 mg Tablet 50 mg PO DAILY aspirin 81 mg tablet,delayed release (DR/EC) 81 mg PO DAILY Patient Comments: TAKE 1 TABLET BY MOUTH EVERY DAY nitroglycerin 0.4 mg tablet, sublingual 0.4 mg sublingual UD PRN (Reason: Chest Pain) Patient Comments: PLACE 1 TABLET UNDER TONGUE EVERY 5 MINS, UP TO 3 DOSES NEEDED FOR CHEST PAIN Rx Instructions: PLACE 1 TABLET UNDER TONGUE EVERY 5 MINS, UP TO 3 DOSES NEEDED FOR CHEST PAIN ezetimibe 10 mg tablet 10 mg PO DAILY ascorbic acid (vitamin C) 500 mg Tablet 1,000 mg PO BIDCM 30 Days Qty: 120 0RF Rx Instructions: Take with iron tablets Primary Care Provider: Valeriano Beasley Referrals: Valeriano Beasley MD [Primary Care Provider] - As Needed Activity Restrictions/Additional Instructions: I recommend that at some point you visit with an screen printing stencil preparer regarding your recurrent tongue swelling (angioedema) Benadryl 25 mg every 6 hours as needed We are placing you on Pepcid twice daily as well as prednisone to try to prevent reoccurrence. Print Language: [place] Islander Disposition Disposition: Home, Self Care Discharge Date/Time: 07/18/24 14:23
[2024-07-18] MEDS: DiphenhydrAMINE 50 MG/ML Syringe 25 MG IV (10:25)
[2024-07-18] MEDS: MethylPREDNISolone 125 MG/2 ML Vial IV (10:25)
[2024-07-18] MEDS: Famotidine 200 MG/20 ML MDV 20 MG in 0.9% Normal Saline (Pres. free 8 ML 300 MG IV (10:33)
[2024-07-18 11:03] VITALS: BP 145/84; PULSE 67; RESP 16; O2SAT 95
[2024-07-18 12:00] VITALS: BP 157/83; PULSE 62; RESP 12; O2SAT 93
[2024-07-18 13:00] VITALS: BP 170/84; PULSE 68; RESP 15; O2SAT 95
[2024-07-18 13:58] VITALS: BP 167/89; PULSE 67; RESP 14; O2SAT 96
[2024-07-18 14:16] VITALS: BP 155/79; PULSE 73; RESP 19; TEMP 36.9; O2SAT 96
== END 2024-07-18 14:23 | disposition home or self-care (01) ==
PROVIDERS: Emergency Provider Emergency Medicine; PCP Family Medicine; Visit Provider Emergency Medicine
DX: T78.3XXA Angioneurotic edema, initial encounter (principal); I25.10 Atherosclerotic heart disease of native coronary artery without angina pectoris; I25.2 Old myocardial infarction; Z87.891 Personal history of nicotine dependence; X58.XXXA Exposure to other specified factors, initial encounter
CPT/HCPCS: 96374; 96375; 96376; 99284; A4216

== ENCOUNTER → 2024-09-06 | Outpatient (CLI) | payer MEDICARE, SELFPAY ==
[2023-08-23 15:18] VITALS: BMI 28.3
--- NOTE | 2024-09-06 16:06 | CT_ITS ---
PROCEDURE: CT ABD/PELVIS W/WO CONTRAST REASON FOR EXAM: Cirrhosis of the liver TECHNIQUE: Abdomen and pelvis CT before and following intravenous contrast. COMPARISON: 08/28/2023; 05/14/2024 FINDINGS: Lower chest: The heart is enlarged with extensive coronary artery calcifications. Liver: Lobular hepatic contour present and steatosis. The liver is enlarged measuring 20.3 cm in craniocaudal dimension. There is a peripheral wedge-shaped vascular shunt in the anterior aspect of the lower right hepatic lobe, best seen on image 43 of series 4, which is stable from the previous exam. No arterial enhancing lesions or washout identified. Biliary/gallbladder: The gallbladder is nondistended. Pancreas: Unremarkable. Spleen: There are numerous punctate calcifications in the spleen, likely due to remote granulomatous disease. Adrenal glands: Unremarkable. Kidneys: There is mild left-sided hydronephrosis with an obstructing 6.5 mm calculus in the distal left ureter. There are numerous bilateral nonobstructing renal calculi within the kidneys. The dominant calculus is in the lower pole of the right kidney measuring 1.1 cm. There is mild renal cortical atrophy in the lower pole of the right kidney. A couple of tiny cystic lesions are present in the kidneys bilaterally. Gastrointestinal/peritoneum: No acute abnormality.Moderate colonic diverticulosis is present.The appendix is unremarkable.No free air or free fluid. Vascular: Advanced scattered atherosclerotic calcifications. Lymph nodes: No enlarged lymph nodes by CT size criteria. Pelvic organs: The prostate gland is mildly enlarged. Bladder: Mild diffuse bladder wall thickening. Bones: Mild multilevel degenerative changes are present in the visualized spine. Soft tissues: Unremarkable. CT/CT Abd/Pelvis W/WO Contrast IMPRESSION: 1. Peripheral right lobe hepatic lesion consistent with a vascular shunt, stabl e from the previous exam. No new or worrisome hepatic lesions identified. 2. Mild left hydronephrosis with an obstructing calculus at the distal left ure ter measuring 6.5 mm. 3. Mild diffuse bladder wall thickening, possibly due to chronic bladder outlet obstruction in the setting of prostatomegaly versus cystitis. 4. Nephrolithiasis. 5. Cirrhotic morphology of the liver with steatosis and hepatomegaly. 6. Other chronic findings in the body of the report. [facility]
== END | disposition home or self-care (01) ==
LOC: CT 16:05
PROVIDERS: PCP Family Medicine; Referring Provider Internal Medicine; Visit Provider Internal Medicine
DX: K70.30 Alcoholic cirrhosis of liver without ascites (principal); I25.10 Atherosclerotic heart disease of native coronary artery without angina pectoris; Z87.19 Personal history of other diseases of the digestive system
CPT/HCPCS: 74178; Q9967

== ENCOUNTER → 2024-09-12 | Outpatient (CLI) | payer MEDICARE, SELFPAY ==
[2023-08-23 15:18] VITALS: BMI 28.3
[2024-09-12 14:58] LABS: Absolute Lymphocyte Count 0.77 X10^3/uL (0.83-4.51); Absolute Neutrophil Count 5.1 X10^3/uL (2.0-7.7); Basophil# 0.05 X10^3/uL; Basophil% 0.6 % (0-1); Eosinophil# 0.86 X10^3/uL; Eosinophils% 10.9 % (0-5); Hemoglobin 13.9 g/dL (13.0-16.5); Lymphocyte # 0.77 X10^3/ul (0.83-4.51); Lymphocyte % 9.8 % (19-41); Mean Corp Hgb Conc 33.9 g/dL (32-36); Mean Corpuscular Volume 100.2 fL (80-94); Mean Platelet Vol. 10.1 fl (6.2-12.0); Monocyte# 1.09 X10^3/uL; Monocyte% 13.9 % (0-10); NRBC Flagged by Analyzer 0 % (0-5); Neutrophil # 5.08 X10^3/uL (2.7-7.7); Neutrophil % 64.5 % (47-70); Platelet Count 220 K/mm3 (150-450); RBC Distribution Width CV 13.2 % (11.6-14.6); RBC Distribution Width SD 48.1 fl (35.1-43.9); Red Blood Count 4.09 M/mm3 (4.6-6.2); White Blood Count 7.9 K/mm3 (4.4-11.0)
[2024-09-12 15:39] LABS: Hemoglobin A1c 5.6 % (3.8-5.6)
[2024-09-12 15:45] LABS: ALB/GLOB Ratio 0.8 RATIO (0.9-2.4); AST(SGOT) 38 U/L (15-37); Alanine Aminotransfer ALT/SGPT 36 U/L (16-61); Albumin, Serum 3.3 g/dL (3.2-5.0); Alkaline Phosphatase 134 U/L (45-117); Anion Gap 6 (5-15); BUN 11 mg/dL (7-18); BUN/Creat Ratio 15.3 RATIO (10-20); Bilirubin, Direct 0.18 mg/dL (0.00-0.30); Calcium,Total 9.6 mg/dL (8.5-10.1); Chloride 107 mmol/L (98-107); Creatinine, Serum 0.72 mg/dL (0.70-1.30); EST Glomerular Filtration Rate 113 mL/min (>60); Est Glom Filt Rate - Afr Amer 137 mL/min (>60); Ferritin 106 ng/mL (26-388); Globulin 4.2 g/dL (2.2-4.2); Glucose 91 mg/dL (74-106); Iron 77 ug/dL (65-175); Iron Binding Capacity,Total 278 ug/dL (250-450); PERCENT IRON SATURATION 27.7 % (15.0-55.0); Phosphorus 3.4 mg/dL (2.5-4.9); Potassium 4.4 mmol/L (3.5-5.1); Protein, Total 7.5 g/dL (6.4-8.2); Sodium Level 137 mmol/L (136-145)
[2024-09-12 15:54] LABS: Prothrombin Time (Protime)PT. 13.3 SECONDS (11.7-14.9)
[2024-09-12 16:50] LABS: Hepatitis B Surface Antibody Non-Reactive
[2024-09-16 13:08] LABS: ANTINUCLEAR ANTIBODIES DIRECT Negative (Negative); Anti-Mitochondrial AB <20.0 Units (0.0-20.0)
[2024-09-17 04:07] LABS: AFP, Tumor Marker 2.8 ng/mL (0.0-8.4); Anti-Smooth Muscle ABS 10 Units (0-19); Ceruloplasmin 25.6 mg/dL (16.0-31.0); Copper, Serum or Plasma 119 ug/dL (69-132); GGTP 150 IU/L (0-65); Haptoglobin 286 mg/dL (34-355)
== END | disposition home or self-care (01) ==
LOC: LAB 14:29
PROVIDERS: PCP Family Medicine; Referring Provider Internal Medicine; Visit Provider Internal Medicine
DX: K70.30 Alcoholic cirrhosis of liver without ascites (principal); I25.10 Atherosclerotic heart disease of native coronary artery without angina pectoris; R73.03 Prediabetes; Z87.19 Personal history of other diseases of the digestive system
CPT/HCPCS: 36415; 80053; 82105; 82140; 82248; 82390; 82525; 82728; 82977; 83010; 83036; 83516; 83540; 83550; 83735; 84100; 85025; 85610; 86038; 86140; 86225; 86235; 86706

== ENCOUNTER → 2024-09-23 | Outpatient (CLI) | payer MEDICARE, SELFPAY ==
[2023-08-23 15:18] VITALS: BMI 28.3
--- NOTE | 2024-09-23 13:48 | RAD_ITS ---
PROCEDURE: ABDOMEN SINGLE VIEW REASON FOR EXAM: Kidney calculus TECHNIQUE: Supine and upright views of the abdomen. COMPARISON: CT of the abdomen and pelvis dated 09/06/2024 FINDINGS: Bowel gas pattern is normal. No evidence of bowel obstruction. No free air. 9 mm calculus projects over the right renal fossa, consistent with renal stones. The bones are unremarkable. RAD/Abdomen Single View IMPRESSION: Right renal stones. Reading Location: [facility]
== END | disposition home or self-care (01) ==
LOC: RAD 13:45
PROVIDERS: PCP Family Medicine; Referring Provider Urology; Visit Provider Urology
DX: N20.0 Calculus of kidney (principal)
CPT/HCPCS: 74018

== ENCOUNTER → 2024-09-26 | Outpatient (CLI) | payer MEDICARE, SELFPAY ==
[2023-08-23 15:18] VITALS: BMI 28.3
== END | disposition home or self-care (01) ==
LOC: PSN 13:11
PROVIDERS: PCP Family Medicine; Referring Provider Urology; Visit Provider Urology
DX: Z01.810 Encounter for preprocedural cardiovascular examination (principal)
CPT/HCPCS: 93005

== ENCOUNTER → 2024-10-11 | Outpatient (CLI) | payer MEDICARE, SELFPAY ==
[2023-08-23 15:18] VITALS: BMI 28.3
--- NOTE | 2024-10-11 10:53 | CALC_PTH ---
PATIENT: NICO HUTTON LOC: [facility] U#:[id number] AGE/SX: 73/M ROOM: RE10/11/[address]: Dr. Geovani Barron MD : [id number] BED: DIS: 10/11/2024 SPEC #: [id number] RECD: 10/14/24 10:45 STATUS: ROSEMARIE LUA #: [id number] SHARON: 10/11/24 10:[address]: Geovani Barron DEPT: SURGICAL PATHOLOGY RECD BY: Dewey Frausto ENTERED: 10/14/24 10:45 SP TYPE: Calculi OTHR DR: Dr. Valeriano Beasley MD Tissues: A - CALCULI Procedures: Surgery Specimen Level I HEADER OPERATION: Left ureteroscopy, laser stone, left ureteral stent PRE-OP DIAGNOSIS: Calculus of ureter TISSUE SUBMITTED: A- Ureteral calculi stone GROSS DIAGNOSIS Ureteral calculi, removed: * Calculi confirmed (gross examination only). * Chemical analysis is PENDING and will be reported separately. GROSS DESCRIPTION Received fresh Labeled, Ye [place] and not designated, are multiple dark brown, ragged, irregularly-shaped calculi and calculus fragments that aggregate to 0.8 x 0.8 x 0.3 cm. The calculi are for gross examination only and entirely submitted for chemical analysis. ANTONIO 10/14/2024 CPT:30452
== END | disposition home or self-care (01) ==
LOC: LABSPEC 16:00
PROVIDERS: PCP Family Medicine; Referring Provider Urology; Visit Provider Urology
DX: N20.1 Calculus of ureter (principal)
CPT/HCPCS: 82360; 88300

== ENCOUNTER → 2024-11-05 | Outpatient (CLI) | payer MEDICARE, SELFPAY ==
[2023-08-23 15:18] VITALS: BMI 28.3
[2024-11-05 14:05] LABS: Absolute Lymphocyte Count 0.68 X10^3/uL (0.83-4.51); Absolute Neutrophil Count 5.6 X10^3/uL (2.0-7.7); Basophil# 0.03 X10^3/uL; Basophil% 0.4 % (0-1); Eosinophil# 0.59 X10^3/uL; Eosinophils% 7.3 % (0-5); Hematocrit 37.7 % (40-54); Hemoglobin 13.2 g/dL (13.0-16.5); Lymphocyte # 0.68 X10^3/ul (0.83-4.51); Lymphocyte % 8.4 % (19-41); Mean Corpuscular Hgb 35.3 pg (27.0-32.0); Mean Corpuscular Volume 100.8 fL (80-94); Mean Platelet Vol. 9.7 fl (6.2-12.0); Monocyte# 1.24 X10^3/uL; Monocyte% 15.3 % (0-10); NRBC Flagged by Analyzer 0 % (0-5); Neutrophil # 5.57 X10^3/uL (2.7-7.7); Neutrophil % 68.5 % (47-70); Platelet Count 239 K/mm3 (150-450); RBC Distribution Width CV 13.6 % (11.6-14.6); RBC Distribution Width SD 50.2 fl (35.1-43.9); Red Blood Count 3.74 M/mm3 (4.6-6.2); White Blood Count 8.1 K/mm3 (4.4-11.0)
[2024-11-05 14:12] LABS: Prothrombin Time (Protime)PT. 13.7 SECONDS (11.7-14.9)
[2024-11-05 15:15] LABS: Ammonia 35.6 umol/L (16-60)
[2024-11-05 16:32] LABS: ALB/GLOB Ratio 1.2 RATIO (0.9-2.4); AST(SGOT) 41 U/L (<=37); Alanine Aminotransfer ALT/SGPT 32 U/L (<=46); Albumin, Serum 4.1 g/dL (3.4-4.8); Alkaline Phosphatase 141 U/L (40-129); Anion Gap 11 (5-15); BUN 16 mg/dL (4-19); BUN/Creat Ratio 19.6 RATIO (10-20); CRP 6.19 mg/L (0.0-3.0); Calcium,Total 9.8 mg/dL (7.6-11.0); Chloride 104 mmol/L (98-108); Cholesterol 158 mg/dL (<=200); EST Glomerular Filtration Rate 93 (>60); Globulin 3.4 g/dL (2.2-4.2); Glucose 95 mg/dL (70-99); High Density Lipoprotein 54 mg/dL; Low Density Lipoprotein Calc. 85 mg/dL; Protein, Total 7.4 g/dL (5.9-8.4); Sodium Level 136 mmol/L (133-145); Total Bilirubin 0.89 mg/dL (0.00-1.30); Triglycerides 94 mg/dL; Very Low Density Lipoprotein 19 mg/dL (5-40); cholesterol:hdl ratio screen 2.92
== END | disposition home or self-care (01) ==
LOC: LAB 13:44
PROVIDERS: PCP Family Medicine; Referring Provider Internal Medicine; Visit Provider Internal Medicine
DX: N20.0 Calculus of kidney (principal); K70.30 Alcoholic cirrhosis of liver without ascites; I25.2 Old myocardial infarction; Z87.19 Personal history of other diseases of the digestive system
CPT/HCPCS: 36415; 80053; 80061; 82140; 85025; 85610; 86140

== ENCOUNTER 2024-12-27 13:13 | Inpatient (IN) | payer MEDICARE, SELFPAY ==
[2023-08-23 15:18] VITALS: BMI 28.3
[2024-12-27] VITALS (24 sets, daily range): BP systolic 86–184; BP diastolic 62–104; PULSE 55–96; RESP 14–20; TEMP 36.6–37.2; O2SAT 94–99; BMI 29.5
--- NOTE | 2024-12-27 13:27 | EKG12_ITS ---
Test Reason : Blood Pressure : */* mmHG Vent. Rate : 82 BPM Atrial Rate : 82 BPM P-R Int : 278 ms QRS Dur : 156 ms QT Int : 442 ms P-R-T Axes : 36 -43 120 degrees QTcB Int : 516 ms Sinus rhythm with 1st degree A-V block Left axis deviation Left bundle branch block Abnormal ECG Confirmed by HUGH LUNA, MORRIS ([id number]), city editor CAREY BAUER ([id number]) on 12/30/2024 6:52:47 AM Referred By: Confirmed By: MORRIS REESE MD
--- NOTE | 2024-12-27 13:33 | EDS_ITS ---
HPI History of Present Illness Chief Complaint: Allergic Reaction Detail of Chief Complaint: Angioedema Informant: patient Onset/Context/Timing Onset: Hours ( onset 0900) Context: Sudden Onset Timing: Continuous Quality: Slurred words, difficulty swallowing Mechanism/Context: Yes other Current Severity: Severe Maximum Severity: Severe Worsened by: Unknown Relieved by: nothing Associated Symptoms Associated Symptoms: other (Angioedema) Narrative Narrative: Patient is a 74-year-old gentleman. He presented in March and July 20232024 respectively with angioedema. He was not on an JOSE inhibitor or ARB at that time. He has no known history of familial angioedema. He denies rash. He denies itching. He denies cardiovascular symptoms or orthostatic symptoms. Prior similar symptoms: Yes Recent Illness/Hospitalization: No PFSH PFS Medical History High serum parathyroid hormone (PTH) Heart murmur Elevated alkaline phosphatase level Elevated PSA Diverticulosis AVM (arteriovenous malformation) of colon Vitamin D deficiency Gout Alcohol abuse Essential hypertension Chest pain Anxiety Depression Myocardial infarct Chest pain Acute blood loss anemia Bloody diarrhea Coronary artery disease Atherosclerotic heart disease of [place] coronary artery without angina pectoris ST elevation [place] (STEMI) (~11/29/21) Hyperlipidemia Hypertension Home Medications ?Medication ?Instructions ?Recorded ?Last Taken ?Type allopurinol 100 mg tablet 100 mg PO DAILY GOUT 2 09/02/22 History atorvastatin 80 mg tablet 80 mg PO DAILY CHOLESTEOL 09/01/22 History ezetimibe 10 mg tablet 10 mg PO DAILY CHOLESTEROL 0 09/02/22 09/01/22 History nitroglycerin 0.4 mg sublingual 0.4 mg sublingual UD P RN Chest Pain 09/02/22 Unknown History tablet ascorbic acid (vitamin C) 500 mg 1,000 mg (2 x 500 mg) PO BIDCM 30 09/09/22 Unknown Rx tablet days #120 tabs cholecalciferol (vitamin D3) 125 125 mcg PO DAILY 04/16 Unknown History mcg (5,000 unit) capsule omega 3-dha 100 mg-epa 400 mg-fish cap PO 09/01/23 Unk nown History oil 1,000 mg capsule vitamin B complex (B 1 tab PO DAILY 09/01/23 Unkn own History Complex-Vitamin B12 tablet) isosorbide mononitrate 30 mg 30 mg PO QAM 04/15/24 Unk nown History tablet,extended release 24 hr amlodipine 5 mg tablet 5 mg PO QDAY 09/19/24 Unknow n History carvedilol 12.5 mg tablet 12.5 mg PO BID 09/19/24 Unkn own History fexofenadine 180 mg tablet 180 mg PO QDAY 09/19/24 Unk nown History fluoxetine 40 mg capsule 40 mg PO QDAY 09/19/24 Unkno wn History gabapentin 300 mg capsule 300 mg PO BID 09/19/24 Unkno wn History doxepin 25 mg capsule 25 mg PO QHS 11/05/24 Unknow n History Allergy/AdvReac Type Severity Reaction Status Date / Time losartan Allergy Severe Angioedema Verified 12/27/24 13:13 hydrochlorothiazide Allergy Hives Verified 12/27/24 13:13 Family History Mother COPD (chronic obstructive pulmonary disease) Lung cancer Father Heart disease Hypertension Myocardial infarction age 53 following [place]. Surgical History H/O colonoscopy S/P cataract extraction Presence of coronary angioplasty implant and graft (~11/29/21) Social History household members: none Smoking Status: Former smoker how long ago did patient quit smoking: Smoked from age 18, 1 ppd x 4 years and then quit. alcohol intake: current alcohol intake frequency: a few times a week Alcohol
--- NOTE | 2024-12-27 13:33 | EX.ED.CRITCA ---
HPI History of Present Illness Chief Complaint: Allergic Reaction Detail of Chief Complaint: Angioedema Informant: patient Onset/Context/Timing Onset: Hours ( onset 0900) Context: Sudden Onset Timing: Continuous Quality: Slurred words, difficulty swallowing Mechanism/Context: Yes other Current Severity: Severe Maximum Severity: Severe Worsened by: Unknown Relieved by: nothing Associated Symptoms Associated Symptoms: other (Angioedema) Narrative Narrative: Patient is a 74-year-old gentleman. He presented in March and July 20232024 respectively with angioedema. He was not on an JOSE inhibitor or ARB at that time. He has no known history of familial angioedema. He denies rash. He denies itching. He denies cardiovascular symptoms or orthostatic symptoms. Prior similar symptoms: Yes Recent Illness/Hospitalization: No PFSH PFS Medical History High serum parathyroid hormone (PTH) Heart murmur Elevated alkaline phosphatase level Elevated PSA Diverticulosis AVM (arteriovenous malformation) of colon Vitamin D deficiency Gout Alcohol abuse Essential hypertension Chest pain Anxiety Depression Myocardial infarct Chest pain Acute blood loss anemia Bloody diarrhea Coronary artery disease Atherosclerotic heart disease of [place] coronary artery without angina pectoris ST elevation [place] (STEMI) (~11/29/21) Hyperlipidemia Hypertension Home Medications ?Medication ?Instructions ?Recorded ?Last Taken ?Type allopurinol 100 mg tablet 100 mg PO DAILY GOUT 03/25/22 09/02/22 History atorvastatin 80 mg tablet 80 mg PO DAILY CHOLESTEOL 03/25/22 09/01/22 History ezetimibe 10 mg tablet 10 mg PO DAILY CHOLESTEROL 09/02/22 09/01/22 History nitroglycerin 0.4 mg sublingual 0.4 mg sublingual UD PRN Chest Pain 09/02/22 Unknown History tablet ascorbic acid (vitamin C) 500 mg 1,000 mg (2 x 500 mg) PO BIDCM 30 09/09/22 Unknown Rx tablet days #120 tabs cholecalciferol (vitamin D3) 125 125 mcg PO DAILY 09/01/23 Unknown History mcg (5,000 unit) capsule omega 3-dha 100 mg-epa 400 mg-fish cap PO 09/01/23 Unknown History oil 1,000 mg capsule vitamin B complex (B 1 tab PO DAILY 09/01/23 Unknown History Complex-Vitamin B12 tablet) isosorbide mononitrate 30 mg 30 mg PO QAM 04/15/24 Unknown History tablet,extended release 24 hr amlodipine 5 mg tablet 5 mg PO QDAY 09/19/24 Unknown History carvedilol 12.5 mg tablet 12.5 mg PO BID 09/19/24 Unknown History fexofenadine 180 mg tablet 180 mg PO QDAY 09/19/24 Unknown History fluoxetine 40 mg capsule 40 mg PO QDAY 09/19/24 Unknown History gabapentin 300 mg capsule 300 mg PO BID 09/19/24 Unknown History doxepin 25 mg capsule 25 mg PO QHS 11/05/24 Unknown History Allergy/AdvReac Type Severity Reaction Status Date / Time losartan Allergy Severe Angioedema Verified 12/27/24 13:13 hydrochlorothiazide Allergy Hives Verified 12/27/24 13:13 Family History Mother COPD (chronic obstructive pulmonary disease) Lung cancer Father Heart disease Hypertension Myocardial infarction age 53 following [place]. Surgical History H/O colonoscopy S/P cataract extraction Presence of coronary angioplasty implant and graft (~11/29/21) Social History household members: none Smoking Status: Former smoker how long ago did patient quit smoking: Smoked from age 18, 1 ppd x 4 years and then quit. alcohol intake: current alcohol intake frequency: a few times a week Alcohol type: beer substance use type: does not use ROS ROS ED Constitutional Constitutional ED: Denies chills, fever(s), subjective or sweats ENT ENT ED: Reports other Details: Swelling under his chin and tongue trouble swallowing and speaking ; Denies ear pain, rhinorrhea or sore throat Cardiovascular Cardiovascular: Denies chest pain or palpitations Respiratory/Chest Respiratory/Chest: Denies cough or dyspnea Gastrointestinal Gastrointestinal: Denies abdominal pain, nausea or vomiting Musculoskeletal Musculoskeletal: Denies arthralgias, myalgias or neck pain Integumentary Denies rash Hematologic/Lymphatic Hematologic/Lymphatic: Denies easy bleeding or easy bruising EXAM Physical Exam Const Vital Signs: 12/27/24 13:13 12/27/24 13:40 12/27/24 13:42 Temperature 98 F Temperature Source Oral Pulse Rate 85 Respiratory Rate 16 14 Respiratory Effort Short of Breath Respiratory Depth Normal Respiratory Pattern Normal Normal Blood Pressure 165/97 H Blood Pressure Mean 119 Pulse Ox 99 Oxygen Delivery Method Room Air Fraction of Inspired Oxygen (FIO2) 35 12/27/24 14:05 12/27/24 14:05 12/27/24 14:11 Temperature Temperature Source Pulse Rate 83 84 82 Respiratory Rate 19 H 14 16 Respiratory Effort Respiratory Depth Respiratory Pattern Blood Pressure 166/96 H 86/62 L 116/84 H Blood Pressure Mean 119 70 94 Pulse Ox 99 97 97 Oxygen Delivery Method Mechanical Ventilator Mechanical Ventilator Mechanical Ventilator Fraction of Inspired Oxygen (FIO2) Positive well nourished and well developed Constitutional Narrative: Patient difficulty swallowing. There is no drooling presently. He has garbled speech. He has significant angioedema. He has a Mallampati class IV General Appearance ED: well developed; Negative for pallor HEENT HEENT Narrative: Angioedema normocephalic and atraumatic; Negative for cyanosis of lips/distal nose or tenderness Eyes PERRL and EOMs intact bilaterally Neck full ROM, no lymphadenopathy, supple and no JVD Neck Narrative: Fullness in the submental region. Trachea is midline. Question of expiratory stridor. Cardio regular rate, regular rhythm, S1 normal heart sound, S2 normal heart sound and no murmurs GI non-tender, non-distended and no masses Extremity Extremity Narrative: There is no clubbing or cyanosis. Neuro oriented x3 and CN's II-XII intact bilaterally Sensorium / Orientation: alert Psych mental status grossly normal Skin General Skin Exam: Negative for jaundice or pallor Lesions: no lesions Rashes: no rashes MDM MDM MDM Narrative Medical decision making narrative: Patient with angioedema. Plan is intubation with glide scope. Will initially pretreat with oxygen. He will receive etomidate if I am able to visualize the cords or pass the scope past the tongue and not able to intubate because of him resisting will chemically paralyzed if cords are visualized otherwise we will place LMA and call airway team Since patient was initially evaluated and moved to room 1 he was reexamined his tongue is larger in size. Concerned that his angioedema is worsening and will compromise his airway. He was prepped for orotracheal ovation. He was explained risk benefits and potential need for a cricothyroidotomy. Under the conditions written consent was not obtained since this is a emergency and implied consent is applicable. Patient was preoxygenated. Patient received 20 mg etomidate. Vocal cords were seen attempt to place endotracheal tube was unsuccessful because patient was resisting. He received 1 mg/kg of succinylcholine. He was successfully intubated with a 7.0 endotracheal tube. There is swelling of the false cords. Patient was started on propofol drip since he has no allergy to soy products or egg products. Hospitalist was paged for admission for angioedema History & Record Review Additional record(s) reviewed:: Prior ED visit and Prior labs Lab Data Attestation: I reviewed the patient's lab results. Lab results narrative: CBC is remarked for an MCV of 103.5. Labs: Laboratory Results - last 24 hr 12/27/24 13:31 WBC 7.5 RBC 3.95 L Hgb 14.1 Hct 40.9 MCV 103.5 H MCH 35.7 H MCHC 34.5 RDW Std Deviation 51.5 H RDW Coeff of Dorie 13.3 Plt Count 200 MPV 9.7 Immature Gran % (Auto) 0.300 Neut % (Auto) 67.1 Lymph % (Auto) 9.8 L [place] % (Auto) 11.2 H Eos % (Auto) 10.8 H Baso % (Auto) 0.8 Absolute Neuts (auto) 5.0 Absolute Lymphs (auto) 0.73 L Nucleated RBC % 0 Sodium 139 Potassium 4.7 Chloride 105 Carbon Dioxide 23.1 Anion Gap 11 BUN 10 Creatinine 0.72 Estim Creat Clear Calc 93.74 Est GFR (MDRD) Non-Af 96 BUN/Creatinine Ratio 14.1 Glucose 95 Calcium 9.4 Total Bilirubin 0.80 AST 50 H ALT 34 Alkaline Phosphatase 151 H Total Protein 7.4 Albumin 4.0 Globulin 3.5 Albumin/Globulin Ratio 1.1 Radiography Chest X-Ray - ED: 1 View and Read by ED Physician (KUB was not obtained because chest x-ray shows endotracheal tube to be in proper position and NG in proper position. Patient has discoid atelectasis on the right may be an air bronchogram as well. Cardiac silhouette size is unremarkable. There is no abnormality osseous structures. There is no ev) EKG Initial EKG: Attestation: I personally reviewed and interpreted this EKG as follows: Interpretation: Sinus Rhythm (Rate is 82 with a first-degree AV block. [place] to the left. IN interval is 270 ms. QRS duration is 156 ms and morphology consistent with left bundle branch block. QT duration 442 ms.) Management Discussion w/another healthcare provider: Hospitalist (Spoke with Dr. Florentino. She was informed I did not start a 22 iban Solu-Medrol however will order since reviewing to prior visits he got better with treatment. She was informed he had not been on an JOSE inhibitor in some time. When he was seen this past July he was not on an ARB but had been on) Treatment and Re-Evaluation Narrative: Did look up adverse reactions effects from amlodipine. Allergic reaction is listed however there is no mention specifically of angioedema. There is no mention of angioedema postmarketing reports through [employer]. Will review other sources. Of note patient was on amlodipine when seen for angioedema March 2024 and July of this year. Procedures Intubations Intubation Method: orotracheal Intubation Verification: Positive color change and Bilateral breath sounds confirmed Intubation Complications: no complications (Documented under the MDM portion of the medical record) Critical Care Time Critical Care Time: Yes Critical care time (excluding procedures): 30-74 minutes (31), Including time spent: (History, physical, documentation, review of prior records and laboratory results.), Discussing w/Patient &/or Family/Child Support Case Officer (Patient was informed that he needs to be intubated reason why he needs to be intubated and if unsuccessful he may require a cricothyroidotomy.), Discussing w/Consultants (Hospitalist Dr. Flakita Florentino was paged.), Arranging Admission or Transfer and Performing Direct Patient Care at Bedside Discharge Plan Dx/Rx/DC Orders Clinical Impression: Angioedema, Essential hypertension, Hyperlipidemia, Cirrhosis, alcoholic, Expiratory stridor, Dysphonia, Dysphagia, History of hypertension, History of coronary artery disease, Hypotension due to drugs, Eosinophilia, Lymphopenia Disposition Disposition: Acute Care Hospital [facility]
[2024-12-27] MEDS: Etomidate 20 MG/10 ML Vial IV (13:40)
[2024-12-27] MEDS: Succinylcholine Chloride 200 MG/10 ML Vial 95 MG IV (13:42)
[2024-12-27] MEDS: Propofol 10MG/Ml 1,000 MG/100 ML Bottle 5.7 MG CONT INF (13:45)
[2024-12-27 13:47] LABS: Absolute Lymphocyte Count 0.73 X10^3/uL (0.83-4.51); Basophil# 0.06 X10^3/uL; Basophil% 0.8 % (0-1); Eosinophil# 0.81 X10^3/uL; Eosinophils% 10.8 % (0-5); Hematocrit 40.9 % (40-54); Hemoglobin 14.1 g/dL (13.0-16.5); Lymphocyte # 0.73 X10^3/ul (0.83-4.51); Lymphocyte % 9.8 % (19-41); Mean Corp Hgb Conc 34.5 g/dL (32-36); Mean Corpuscular Hgb 35.7 pg (27.0-32.0); Mean Corpuscular Volume 103.5 fL (80-94); Mean Platelet Vol. 9.7 fl (6.2-12.0); Monocyte# 0.84 X10^3/uL; Monocyte% 11.2 % (0-10); NRBC Flagged by Analyzer 0 % (0-5); Neutrophil # 5.01 X10^3/uL (2.7-7.7); Neutrophil % 67.1 % (47-70); Platelet Count 200 K/mm3 (150-450); RBC Distribution Width CV 13.3 % (11.6-14.6); RBC Distribution Width SD 51.5 fl (35.1-43.9); Red Blood Count 3.95 M/mm3 (4.6-6.2); White Blood Count 7.5 K/mm3 (4.4-11.0)
--- NOTE | 2024-12-27 13:53 | RAD_ITS ---
PROCEDURE: CHEST 1 VIEW (PORTABLE) 12/27/2024 REASON FOR EXAM: INTUBATION TECHNIQUE: Two-view AP portable upright chest. COMPARISON: None. RAD/Chest 1 View (Portable) IMPRESSION: Endotracheal tube seen with tip approximately 4 cm above the bernadine. Nasogastr ic tube seen coursing of the stomach, with tip excluded from view. No pneumothorax is seen. No pleural effusion is evident. Bilateral lower lung airspace disease is seen, [id number]. Differ ential diagnosis includes atelectasis and pneumonitis. No evidence of pulmonary edema. The cardiomediastinal silhouette is within the normal range. No acute osseous change is evident. Reading Location: [id number]
[2024-12-27 14:08] LABS: ALB/GLOB Ratio 1.1 RATIO (0.9-2.4); AST(SGOT) 50 U/L (<=37); Alanine Aminotransfer ALT/SGPT 34 U/L (<=46); Alkaline Phosphatase 151 U/L (40-129); Anion Gap 11 (5-15); BUN 10 mg/dL (4-19); BUN/Creat Ratio 14.1 RATIO (10-20); Calcium,Total 9.4 mg/dL (7.6-11.0); Carbon Dioxide 23.1 mmol/L (21.0-32.0); Chloride 105 mmol/L (98-108); Creatinine, Serum 0.72 mg/dL (0.70-1.20); EST Glomerular Filtration Rate 96 (>60); Estimated Creatinine Clearance 93.74 ml/min (50-250); Globulin 3.5 g/dL (2.2-4.2); Glucose 95 mg/dL (70-99); Potassium 4.7 mmol/L (3.3-5.1); Protein, Total 7.4 g/dL (5.9-8.4); Sodium Level 139 mmol/L (133-145)
--- NOTE | 2024-12-27 14:11 | HP.PCM.HOS_ITS ---
HPI - General HPI Narrative NICO LICONA, is a 74 M who presents REPLACED BY [facility] Medical History High serum parathyroid hormone (PTH) Heart murmur Elevated alkaline phosphatase level Elevated PSA Diverticulosis AVM (arteriovenous malformation) of colon Vitamin D deficiency Gout Alcohol abuse Essential hypertension Chest pain Anxiety Depression Myocardial infarct Chest pain Acute blood loss anemia Bloody diarrhea Coronary artery disease Atherosclerotic heart disease of [place] coronary artery without angina pectoris ST elevation CT (STEMI) (~11/29/21) Hyperlipidemia Hypertension Home Medications ?Medication ?Instructions ?Recorded ?Last Taken ?Type allopurinol 100 mg tablet 100 mg PO DAILY GOUT 2 09/02/22 History atorvastatin 80 mg tablet 80 mg PO DAILY CHOLESTEOL 09/01/22 History ezetimibe 10 mg tablet 10 mg PO DAILY CHOLESTEROL 0 09/02/22 09/01/22 History nitroglycerin 0.4 mg sublingual 0.4 mg sublingual UD P RN Chest Pain 09/02/22 Unknown History tablet ascorbic acid (vitamin C) 500 mg 1,000 mg (2 x 500 mg) PO BIDCM 30 09/09/22 Unknown Rx tablet days #120 tabs cholecalciferol (vitamin D3) 125 125 mcg PO DAILY 04/16 Unknown History mcg (5,000 unit) capsule omega 3-dha 100 mg-epa 400 mg-fish cap PO 09/01/23 Unk nown History oil 1,000 mg capsule vitamin B complex (B 1 tab PO DAILY 09/01/23 Unkn own History Complex-Vitamin B12 tablet) isosorbide mononitrate 30 mg 30 mg PO QAM 04/15/24 Unk nown History tablet,extended release 24 hr amlodipine 5 mg tablet 5 mg PO QDAY 09/19/24 Unknow n History carvedilol 12.5 mg tablet 12.5 mg PO BID 09/19/24 Unkn own History fexofenadine 180 mg tablet 180 mg PO QDAY 09/19/24 Unk nown History fluoxetine 40 mg capsule 40 mg PO QDAY 09/19/24 Unkno wn History gabapentin 300 mg capsule 300 mg PO BID 09/19/24 Unkno wn History doxepin 25 mg capsule 25 mg PO QHS 11/05/24 Unknow n History Allergy/AdvReac Type Severity Reaction Status Date / Time losartan Allergy Severe Angioedema Verified 12/27/24 13:13 hydrochlorothiazide Allergy Hives Verified 12/27/24 13:13 Family History Mother COPD (chronic obstructive pulmonary disease) Lung cancer Father Heart disease Hypertension Myocardial infarction age [address] Surgical History H/O colonoscopy S/P cataract extraction Presence of coronary angioplasty implant and graft (~11/29/21) Social History household members: none Smoking Status: Former smoker how long ago did patient quit smoking: Smoked from age 18, 1 ppd x 4 years and then quit. alcohol intake: current alcohol intake frequency: a few times a week Alcohol type: beer substance use type: does not use Vital Signs Vital Signs Vital Signs: 12/27/24 13:13 12/27/24 13:40 12/27/24 13:42 Temperature 98 F Temperature Source Oral Pulse Rate 85 Respiratory Rate 16 14 Respiratory Effort Short of Breath Respiratory Depth Normal Respiratory Pattern Normal Normal Blood Pressure 165/97 H Blood Pressure Mean 119 Pulse Ox 99 Oxygen Delivery Method Room Air Fraction of Inspired Oxygen (FIO2) 35 12/27/24 14:05 12/27/24 14:05 12/27/24 14:11 Temperature Temperature Source Pulse Rate 83 84 82 Respiratory Rate 19 H 14 16 Respiratory Effort Respiratory Depth Respiratory Pattern Blood Pressure 166/96 H 86/62 L 116/84 H Blood Pressure Mean 119 70 94 Pulse Ox 99 97 97 Oxygen Delivery Method Mechanical Ventilator Mechanical Ventilator Mechanical Ventilator Fraction of Inspired Oxygen (FIO2) Weight Weight: 95.028 kg Body Mass Index (BMI) 30.0 Results Lab / Micro Data 12/27/24 13:31 12/27/24 13:31 Labs: Laboratory Results - last 24 hr 12/27/24 13:31: WBC 7.5, RBC 3.95 L, Hgb 14.1, Hct 40.9, MCV 103.5 H, MCH 35.7 H , MCHC 34.5, RDW Std Deviation 51.5 H, RDW Coeff of Dorie 13.3, Plt Count 200, MPV 9.7, Immature Gran % (Auto) 0.300, Neut % (Auto) 67.1, Lymph % (Auto) 9.8 L, M jasbir % (Auto) 11.2 H, Eos % (Auto) 10.8 H, Baso % (Auto) 0.8, Absolute Neuts (auto) 5.0, Absolute Lymphs (auto) 0.73 L, Nucleated RBC % 0, Sodium 139, Potassium 4.7, Chloride 105, Carbon Dioxide 23.1, Anion Gap 11, BUN 10, Creatinine 0.72, Estim Creat Clear Calc 93.74, Est GFR (MDRD) Non-Af 96, BUN/Creatinine Ratio 14.1, Glucose 95, Calcium 9.4, Total Bilirubin 0.80, AST 50 H, ALT 34, Alkaline Phosphatase 151 H, Total Protein 7.4, Albumin 4.0, Globulin 3.5, Albumin/Globulin Ratio 1.1 Assessment & Plan Assessment/Plan (1) Acute respiratory failure: (2) Angioedema: (3) Eosinophilia: (4) Monocytosis: (5) Lymphopenia:
--- NOTE | 2024-12-27 14:11 | PCM.HP.STD ---
HPI - General General Date of Admission: 12/27/24 Date of Service: 12/27/24 Chief Complaint: Tongue and lip swelling HPI Narrative NICO LICONA, is a 74 M who presented to the emergency department at [facility] on 12/27/2024 with tongue and lip swelling. Patient has had previous angioedema events in March 2024 and July 2024 at this facility. It does appear that ARB has been listed as an allergy. He reported on presentation to the emergency department physician that there is no familial angioedema. Was reported he did not eat out anything out of the norm. I was unable to elicit a history as the patient was intubated at the time of my evaluation. Due to rapid swelling of the tongue immediate rapid sequence intubation was pursued by the emergency department. Vital signs on presentation showed a temperature of 98, heart rate 85, respiratory 16, blood pressure 165/97 and pulse ox was 99% on room air. CBC was unremarkable. He does appear to have a chronic lymphopenia, monocytosis, and eosinophilia. Chemistry was unremarkable. AST is slightly elevated at 50. Chest x-ray shows ET tube and OG in good place with some plate atelectasis in the right middle lobe. EKG is normal sinus rhythm without any ST-T wave changes concerning for acute ischemia. He will be admitted to the ICU and maintained on Solu-Medrol, H2 and H1 blockers. [facility] Medical History High serum parathyroid hormone (PTH) Heart murmur Elevated alkaline phosphatase level Elevated PSA Diverticulosis AVM (arteriovenous malformation) of colon Vitamin D deficiency Gout Alcohol abuse Essential hypertension Chest pain Anxiety Depression Myocardial infarct Chest pain Acute blood loss anemia Bloody diarrhea Coronary artery disease Atherosclerotic heart disease of [place] coronary artery without angina pectoris ST elevation IN (STEMI) (~11/29/21) Hyperlipidemia Hypertension Home Medications ?Medication ?Instructions ?Recorded ?Last Taken ?Type allopurinol 100 mg tablet 100 mg PO DAILY GOUT 03/25/22 09/02/22 History atorvastatin 80 mg tablet 80 mg PO DAILY CHOLESTEOL 03/25/22 09/01/22 History ezetimibe 10 mg tablet 10 mg PO DAILY CHOLESTEROL 09/02/22 09/01/22 History nitroglycerin 0.4 mg sublingual 0.4 mg sublingual UD PRN Chest Pain 09/02/22 Unknown History tablet ascorbic acid (vitamin C) 500 mg 1,000 mg (2 x 500 mg) PO BIDCM 30 09/09/22 Unknown Rx tablet days #120 tabs cholecalciferol (vitamin D3) 125 125 mcg PO DAILY 09/01/23 Unknown History mcg (5,000 unit) capsule omega 3-dha 100 mg-epa 400 mg-fish cap PO 09/01/23 Unknown History oil 1,000 mg capsule vitamin B complex (B 1 tab PO DAILY 09/01/23 Unknown History Complex-Vitamin B12 tablet) isosorbide mononitrate 30 mg 30 mg PO QAM 04/15/24 Unknown History tablet,extended release 24 hr amlodipine 5 mg tablet 5 mg PO QDAY 09/19/24 Unknown History carvedilol 12.5 mg tablet 12.5 mg PO BID 09/19/24 Unknown History fexofenadine 180 mg tablet 180 mg PO QDAY 09/19/24 Unknown History fluoxetine 40 mg capsule 40 mg PO QDAY 09/19/24 Unknown History gabapentin 300 mg capsule 300 mg PO BID 09/19/24 Unknown History doxepin 25 mg capsule 25 mg PO QHS 11/05/24 Unknown History Allergy/AdvReac Type Severity Reaction Status Date / Time losartan Allergy Severe Angioedema Verified 12/27/24 13:13 hydrochlorothiazide Allergy Hives Verified 12/27/24 13:13 Family History Mother COPD (chronic obstructive pulmonary disease) Lung cancer Father Heart disease Hypertension Myocardial infarction age 53 following [place]. Surgical History H/O colonoscopy S/P cataract extraction Presence of coronary angioplasty implant and graft (~11/29/21) Social History household members: none Smoking Status: Former smoker how long ago did patient quit smoking: Smoked from age 18, 1 ppd x 4 years and then quit. alcohol intake: current alcohol intake frequency: a few times a week Alcohol type: beer substance use type: does not use ROS Review of Systems ROS Unobtainable: due to endotracheal tube Vital Signs Vital Signs Vital Signs: 12/27/24 13:13 12/27/24 13:40 12/27/24 13:42 Temperature 98 F Temperature Source Oral Pulse Rate 85 Respiratory Rate 16 14 Respiratory Effort Short of Breath Respiratory Depth Normal Respiratory Pattern Normal Normal Blood Pressure 165/97 H Blood Pressure Mean 119 Pulse Ox 99 Oxygen Delivery Method Room Air Fraction of Inspired Oxygen (FIO2) 35 12/27/24 14:05 12/27/24 14:05 12/27/24 14:11 Temperature Temperature Source Pulse Rate 83 84 82 Respiratory Rate 19 H 14 16 Respiratory Effort Respiratory Depth Respiratory Pattern Blood Pressure 166/96 H 86/62 L 116/84 H Blood Pressure Mean 119 70 94 Pulse Ox 99 97 97 Oxygen Delivery Method Mechanical Ventilator Mechanical Ventilator Mechanical Ventilator Fraction of Inspired Oxygen (FIO2) Weight Weight: 95.028 kg Body Mass Index (BMI) 30.0 Physical Exam Const well nourished; Negative for alert, oriented x3, no apparent distress or average body habitus Constitutional Narrative: Intubated and sedated, obese, white male, lying in bed, mildly agitated bucking the vent HEENT normocephalic, head/scalp atraumatic and moist oral mucous membranes HEENT Narrative: Tongue swelling noted with secretions pooling in the side of his mouth and drooling Eyes EOMs intact bilaterally and conjunctivae normal Eyes Narrative: No scleral icterus Resp normal respiratory effort, no retractions, no use of accessory muscles and clear to auscultation bilaterally Auscultation: Negative for rales, rhonchi or wheezes Cardio regular rate, regular rhythm, S1 normal heart sound, S2 normal heart sound, no murmurs, no rub, no gallops and no clicks GI normal to inspection, nondistended, normoactive bowel sounds, soft to palpation and non-tender Extremity no clubbing, cyanosis or edema Extremity Narrative: 2+ pedal and radial pulses Neuro Neuro Narrative: Unable to fully assess as patient is intubated and sedated does spontaneously try to move upper and lower extremities Psych Psych Narrative: Unable to assess Results Lab / Micro Data 12/27/24 13:31 12/27/24 13:31 Labs: Laboratory Results - last 24 hr 12/27/24 13:31: WBC 7.5, RBC 3.95 L, Hgb 14.1, Hct 40.9, MCV 103.5 H, MCH 35.7 H, MCHC 34.5, RDW Std Deviation 51.5 H, RDW Coeff of Dorie 13.3, Plt Count 200, MPV 9.7, Immature Gran % (Auto) 0.300, Neut % (Auto) 67.1, Lymph % (Auto) 9.8 L, [place] % (Auto) 11.2 H, Eos % (Auto) 10.8 H, Baso % (Auto) 0.8, Absolute Neuts (auto) 5.0, Absolute Lymphs (auto) 0.73 L, Nucleated RBC % 0, Sodium 139, Potassium 4.7, Chloride 105, Carbon Dioxide 23.1, Anion Gap 11, BUN 10, Creatinine 0.72, Estim Creat Clear Calc 93.74, Est GFR (MDRD) Non-Af 96, BUN/Creatinine Ratio 14.1, Glucose 95, Calcium 9.4, Total Bilirubin 0.80, AST 50 H, ALT 34, Alkaline Phosphatase 151 H, Total Protein 7.4, Albumin 4.0, Globulin 3.5, Albumin/Globulin Ratio 1.1 Assessment & Plan Assessment/Plan (1) Acute respiratory failure: (2) Angioedema: (3) Eosinophilia: (4) Monocytosis: (5) Lymphopenia: PLAN: Plan Acute respiratory failure secondary to angioedema - Etiology is unclear but this is his third episode and his first intubation related to angioedema - Appears to have a previous angioedema with losartan - Is on amlodipine and this also can rarely cause angioedema so would discontinue - Currently intubated and on mechanical ventilation - Wean as able - Check for air leak and readiness for extubation daily - Will utilize Precedex sedation but may need additional agents as well - Solu-Medrol 60 Q8 - Famotidine 20 mg IV twice daily - Benadryl 25 mg every 6 hours - C1 esterase level is pending - 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 if has not already done so Chronic monocytosis - On review of lab patient has had chronically elevated monocyte count - Should follow-up as an outpatient with hematology Chronic eosinophilia - Will review lab patient has a chronically elevated eosinophil count - Should follow-up as an outpatient with hematology Chronic lymphopenia - On review of lab patient has had chronically low lymphocyte count - Should review follow-up as an outpatient with hematology CAD/essential hypertension/hyperlipidemia - most recent cardiac catheterization from 09/03/2022 demonstrated as noted above, diffuse three-vessel disease involving the left anterior descending artery, totally occluded circumflex artery and diffuse disease of the right coronary artery - Will hold oral medications for now and restart accordingly after extubation - As needed labetalol for hypertension - At baseline patient takes amlodipine, carvedilol, isosorbide mononitrate, atorvastatin, and Zetia History of alcoholic cirrhosis - Follows with GI as an outpatient - Per documentation from GI was supposed to be on amlodipine however this is not on his med reconciliation but it has not been completed - It was last filled for 60 days on 09/19/2024 with no refill as of yet History of GI bleed secondary to colonic AVMs - No current issues - Will be on IV famotidine for angioedema Seasonal allergies - Hold home fexofenadine History of gout - Hold home allopurinol until extubated Neuropathy - Hold home gabapentin Depression/anxiety - Hold home fluoxetine - Hold home doxepin History of alcohol abuse - Still drinks a few times a week History of tobacco abuse - Remote and only smoked about a pack a day for 4 years DVT/GI prophylaxis - Lovenox subcu daily 40 mg - Famotidine 20 mg IV push twice daily CODE STATUS - Full code Charges/Coding Visit Charges Inpatient E&M: 88420 Init Hosp L2
[2024-12-27] MEDS: DiphenhydrAMINE 50 MG/ML Syringe 25 MG IV ×3 (14:13→23:10)
[2024-12-27] MEDS: MethylPREDNISolone 125 MG/2 ML Vial IV (14:13)
[2024-12-27] MEDS: fentaNYL 100 MCG/2 ML Ampul 50 MCG IV (14:28)
[2024-12-27] MEDS: fentaNYL drip 100 ML 5 MCG CONT INF (14:47)
[2024-12-27 14:57] LABS: Allen Test Positive; Base Excess 1 mmol/L (-2 to +2); Bicarbonate 24.9 mmol/L (22-26); Blood Gas Specimen Type ART; Mode AC; O2 Delivery Device Adult Vent; PEEP 5; PO2 91 mmHG (75-100); RR 14; SITE L Radial; SO2 97 % (95-99); Total Carbon Dioxide 26 mmol/L; pCO2 37.4 mmHg (35-45); pH 7.43 (7.35-7.45)
[2024-12-27] MEDS: Famotidine 200 MG/20 ML MDV 20 MG in 0.9% Normal Saline (Pres. free 8 ML 300 MG IV ×2 (14:57→21:09)
[2024-12-27 15:53] LABS: CPK Total, Creatine Kinase 120 U/L (24-195); Triglycerides 131 mg/dL
[2024-12-27] MEDS: dexMEDEtomidine 400 MCG in 0.9% Normal Saline (100mL Bag) 96 ML 11.9 MCG CONT INF (16:55)
[2024-12-27] MEDS: Lactated Ringers 1,000 ML 75 ML IV (16:55)
[2024-12-27] MEDS: Labetalol 20 MG/4 ML Vial IV (18:02)
[2024-12-27] MEDS: 0.9% Saline Lock 10 ML Syringe IV (18:02)
[2024-12-27] MEDS: hydrALAZINE 20 MG/ML Vial 10 MG IV (18:39)
[2024-12-27] MEDS: MethylPREDNISolone 125 MG/2 ML Vial 60 MG IV (21:09)
[2024-12-27] MEDS: fentaNYL drip 100 ML 10 MCG CONT INF (23:10)
[2024-12-27] MEDS: dexMEDEtomidine 400 MCG in 0.9% Normal Saline (100mL Bag) 96 ML 16.6 MCG CONT INF (23:10)
[2024-12-28] VITALS (36 sets, daily range): BP systolic 139–168; BP diastolic 77–97; PULSE 57–79; RESP 14–15; TEMP 36.9–37.5; O2SAT 92–96; BMI 30.2
[2024-12-28] MEDS: hydrALAZINE 20 MG/ML Vial 10 MG IV (01:38)
[2024-12-28] MEDS: MethylPREDNISolone 125 MG/2 ML Vial 60 MG IV ×3 (05:06→22:21)
[2024-12-28] MEDS: 0.9% Saline Lock 10 ML Syringe IV ×6 (05:07→22:21)
[2024-12-28] MEDS: DiphenhydrAMINE 50 MG/ML Syringe 25 MG IV ×3 (05:07→17:59)
[2024-12-28 05:18] LABS: Absolute Lymphocyte Count 0.45 X10^3/uL (0.83-4.51); Absolute Neutrophil Count 8.4 X10^3/uL (2.0-7.7); Basophil# 0.01 X10^3/uL; Basophil% 0.1 % (0-1); Hematocrit 41.5 % (40-54); Hemoglobin 14.4 g/dL (13.0-16.5); Lymphocyte # 0.45 X10^3/ul (0.83-4.51); Mean Corp Hgb Conc 34.7 g/dL (32-36); Mean Corpuscular Volume 103.8 fL (80-94); Mean Platelet Vol. 9.8 fl (6.2-12.0); Monocyte# 0.13 X10^3/uL; Monocyte% 1.4 % (0-10); NRBC Flagged by Analyzer 0 % (0-5); Neutrophil # 8.39 X10^3/uL (2.7-7.7); Neutrophil % 92.9 % (47-70); POSITIVE DIFFERENTIAL YES; Platelet Count 180 K/mm3 (150-450); RBC Distribution Width CV 13.3 % (11.6-14.6); RBC Distribution Width SD 51.4 fl (35.1-43.9)
[2024-12-28] MEDS: dexMEDEtomidine 400 MCG in 0.9% Normal Saline (100mL Bag) 96 ML 14.3 MCG CONT INF ×3 (05:29→19:06)
[2024-12-28] MEDS: Lactated Ringers 1,000 ML 75 ML IV (05:29)
[2024-12-28 05:54] LABS: Magnesium 2.1 mg/dL (1.5-2.2); Phosphorus 3.3 mg/dL (2.7-4.5)
[2024-12-28 05:58] LABS: AST(SGOT) 42 U/L (<=37); Alanine Aminotransfer ALT/SGPT 31 U/L (<=46); Albumin, Serum 3.7 g/dL (3.4-4.8); Alkaline Phosphatase 149 U/L (40-129); Anion Gap 13 (5-15); BUN 11 mg/dL (4-19); BUN/Creat Ratio 15.6 RATIO (10-20); Carbon Dioxide 19.7 mmol/L (21.0-32.0); Chloride 105 mmol/L (98-108); Creatinine, Serum 0.69 mg/dL (0.70-1.20); EST Glomerular Filtration Rate 97 (>60); Estimated Creatinine Clearance 94.14 ml/min (50-250); Globulin 3.6 g/dL (2.2-4.2); Glucose 178 mg/dL (70-99); Potassium 4.3 mmol/L (3.3-5.1); Protein, Total 7.2 g/dL (5.9-8.4); Sodium Level 137 mmol/L (133-145); Total Bilirubin 0.59 mg/dL (0.00-1.30)
[2024-12-28] MEDS: Labetalol 20 MG/4 ML Vial IV (07:09)
--- NOTE | 2024-12-28 07:51 | PN.HOSP_ITS ---
Reason for Visit Reason for Visit: Diagnoses Eosinophilia, unspecified (12/27/24) Lymphocytopenia (12/27/24) Monocytosis (symptomatic) (12/27/24) Acute respiratory failure, unspecified whether with hypoxia or hypercapnia (12/27/24) Angioneurotic edema, initial encounter (12/27/24) Subjective Subjective Still on the ventilator. FiO2 weaned down. Requested paper and pen. Objective Data Objective Data Vital Signs: Vital Signs Temp Pulse Resp BP Pulse Ox O2 Del Method FiO2 36.9 C 71 14 168/91 H 93 Mechanical Ventilator 30 12/28/24 07:00 12/28/24 07:05 12/28/24 07:05 12/28/24 07:00 12/28/24 07:05 12/28/24 07:00 12/28/24 07:05 Oxygen Delivery Method Mechanical Ventilator Weight: 95.9 kg Body Mass Index (BMI) 30.2 Intake & Output: Intake and Output for Last 24 Hours 12/26/24 12/27/24 12/28/24 23:59 23:59 23:59 Intake Total 226.97 / 249.13 1138.23 / 1138.23 Output Total 550 / 550 400 / 400 Balance -323.03 / -300.87 738.23 / 738.23 Lab / Micro Data 12/28/24 05:08 12/28/24 05:08 Labs: Laboratory Results - last 24 hr 12/27/24 13:31: WBC 7.5, RBC 3.95 L, Hgb 14.1, Hct 40.9, MCV 103.5 H, MCH 35.7 H , MCHC 34.5, RDW Std Deviation 51.5 H, RDW Coeff of Dorie 13.3, Plt Count 200, MPV 9.7, Immature Gran % (Auto) 0.300, Neut % (Auto) 67.1, Lymph % (Auto) 9.8 L, M jasbir % (Auto) 11.2 H, Eos % (Auto) 10.8 H, Baso % (Auto) 0.8, Absolute Neuts (auto) 5.0, Absolute Lymphs (auto) 0.73 L, Nucleated RBC % 0, Sodium 139, Potassium 4.7, Chloride 105, Carbon Dioxide 23.1, Anion Gap 11, BUN 10, Creatinine 0.72, Estim Creat Clear Calc 93.74, Est GFR (MDRD) Non-Af 96, BUN/Creatinine Ratio 14.1, Glucose 95, Calcium 9.4, Total Bilirubin 0.80, AST 50 H, ALT 34, Alkaline Phosphatase 151 H, Total Protein 7.4, Albumin 4.0, Globulin 3.5, Albumin/Globulin Ratio 1.1 12/27/24 13:39: Total Creatine Kinase 120, Triglycerides 131 12/28/24 05:08: WBC 9.0, RBC 4.00 L, Hgb 14.4, Hct 41.5, MCV 103.8 H, MCH 36.0 H , MCHC 34.7, RDW Std Deviation 51.4 H, RDW Coeff of Dorie 13.3, Plt Count 180, MPV 9.8, Immature Gran % (Auto) 0.600, Neut % (Auto) 92.9 H, Lymph % (Auto) 5.0 L, [place] % (Auto) 1.4, Eos % (Auto) 0.0, Baso % (Auto) 0.1, Absolute Neuts (auto) 8.4 H, Absolute Lymphs (auto) 0.45 L, Nucleated RBC % 0, Sodium 137, Potassium 4.3, Chloride 105, Carbon Dioxide 19.7 L, Anion Gap 13, BUN 11, Creatinine 0.69 L, Estim Creat Clear Calc 94.14, Est GFR (MDRD) Non-Af 97, BUN/Creatinine Ratio 15.6, Glucose 178 H, Calcium 9.0, Phosphorus 3.3, Magnesium 2.1, Total Bilirubin 0.59, AST 42 H, ALT 31, Alkaline Phosphatase 149 H, Total Protein 7.2, Albumin 3.7, Globulin 3.6, Albumin/Globulin Ratio 1.0 ABG Data ABG results: ABG 12/27/24 14:53 Specimen Type ART Sample Site L Radial pH 7.43 Bicarbonate Actual 24.9 Total CO2 26 Base Excess 1 O2 Saturation 97 O2 % 30.0 ABG pCO2 37.4 ABG pO2 91 Gato Test Positive Respiration Rate 14 O2 Delivery Device Adult Vent Vent Mode AC Tidal Volume 500.0 POC PEEP 5 Radiography Diagnostic Testing: Radiology Impression Chest X-Ray 12/27/24 13:53 IMPRESSION: Endotracheal tube seen with tip approximately 4 cm above the bernadine. Nasogastric tube seen coursing of the stomach, with tip excluded from view. No pneumothorax is seen. No pleural effusion is evident. Bilateral lower lung airspace disease is seen, [id number]. Differential diagnosis includes atelectasis and pneumonitis. No evidence of pulmonary edema. The cardiomediastinal silhouette is within the normal range. No acute osseous change is evident. Reading Location: [address] Physical Exam Const Constitutional Narrative: on the ventilator. HEENT head/scalp atraumatic and moist oral mucous membranes Resp normal respiratory effort, no retractions, no use of accessory muscles and clear to auscultation bilaterally Cardio regular rate, regular rhythm, S1 normal heart sound and S2 normal heart sound GI normal to inspection, nondistended, normoactive bowel sounds, soft to palpation, non-tender and non-distended Neuro Sensorium / Orientation: awake Assessment & Plan Assessment/Plan (1) Acute respiratory failure: PLAN: 2/2 angioedema. Required intubation to prevent respiratory collapse given the angioedema. Sedation w fentanyl and dexmedetomidine gtt. CCM consult Extubate when ok with CCM. I informed nursing that I would be ready over the weekend if so decided to extubate if he were to require re-intubation. (2) Angioedema: PLAN: unclear etiology. No current ACEi/ARB on home list. Has had angioedema from losartan in the past. I would be concerned about hereditary etiology. C1 esterase ordered. Follow up with allergy as oupt. PLAN: Plan Eosinophilia: resolved. Lymphopenia: ongoing. Follow up with hematology as outpt. VTE prophylaxis: LMWH. Charges/Coding Visit Charges Inpatient E&M: 45624 Subs Hosp L2
[2024-12-28] MEDS: Chlorhexidine 15 ML PO ×2 (08:00→22:21)
[2024-12-28] MEDS: fentaNYL drip 100 ML 10 MCG CONT INF ×2 (08:43→18:11)
--- NOTE | 2024-12-28 09:16 | PCMCONS.TICU ---
HPI Consult Data Date of Consult: 12/28/24 HPI Narrative HPI Narrative: NICO LICONA, is a 74 yo M w/ recurrent angioedema, EtOH cirrhosis, h/o GI bleed from AVMs, CAD, HTN, gout, depression/anxiety who was admitted for angioedema. He apparently had episodes of angioedema here in Mar 2024 and Jul 2024 (unclear etiology but attributed to losartan one of the times). He apparently presented with recurrent tongue/facial swelling of unclear duration. Unclear if any particular trigger. Was urgently intubated in ED for airway protection. Currently stable on vent now. Started on IV solumedrol and H1/H2 blockers. ROS: Unable to obtain as pt intubated [facility] Medical History High serum parathyroid hormone (PTH) Heart murmur Elevated alkaline phosphatase level Elevated PSA Diverticulosis AVM (arteriovenous malformation) of colon Vitamin D deficiency Gout Alcohol abuse Essential hypertension Chest pain Anxiety Depression Myocardial infarct Chest pain Acute blood loss anemia Bloody diarrhea Coronary artery disease Atherosclerotic heart disease of [place] coronary artery without angina pectoris ST elevation IN (STEMI) (~11/29/21) Hyperlipidemia Hypertension Home Medications ?Medication ?Instructions ?Recorded ?Last Taken ?Type allopurinol 100 mg tablet 100 mg PO DAILY GOUT 03/25/22 09/02/22 History atorvastatin 80 mg tablet 80 mg PO DAILY CHOLESTEOL 03/25/22 09/01/22 History ezetimibe 10 mg tablet 10 mg PO DAILY CHOLESTEROL 09/02/22 09/01/22 History nitroglycerin 0.4 mg sublingual 0.4 mg sublingual UD PRN Chest Pain 09/02/22 Unknown History tablet ascorbic acid (vitamin C) 500 mg 1,000 mg (2 x 500 mg) PO BIDCM 30 09/09/22 Unknown Rx tablet days #120 tabs cholecalciferol (vitamin D3) 125 125 mcg PO DAILY 09/01/23 Unknown History mcg (5,000 unit) capsule omega 3-dha 100 mg-epa 400 mg-fish cap PO 09/01/23 Unknown History oil 1,000 mg capsule vitamin B complex (B 1 tab PO DAILY 09/01/23 Unknown History Complex-Vitamin B12 tablet) isosorbide mononitrate 30 mg 30 mg PO QAM 04/15/24 Unknown History tablet,extended release 24 hr amlodipine 5 mg tablet 5 mg PO QDAY 09/19/24 Unknown History carvedilol 12.5 mg tablet 12.5 mg PO BID 09/19/24 Unknown History fexofenadine 180 mg tablet 180 mg PO QDAY 09/19/24 Unknown History fluoxetine 40 mg capsule 40 mg PO QDAY 09/19/24 Unknown History gabapentin 300 mg capsule 300 mg PO BID 09/19/24 Unknown History doxepin 25 mg capsule 25 mg PO QHS 11/05/24 Unknown History Allergy/AdvReac Type Severity Reaction Status Date / Time losartan Allergy Severe Angioedema Verified 12/27/24 13:13 hydrochlorothiazide Allergy Hives Verified 12/27/24 13:13 Family History Mother COPD (chronic obstructive pulmonary disease) Lung cancer Father Heart disease Hypertension Myocardial infarction age 53 following [place]. Surgical History H/O colonoscopy S/P cataract extraction Presence of coronary angioplasty implant and graft (~11/29/21) Social History household members: none Smoking Status: Former smoker how long ago did patient quit smoking: Smoked from age 18, 1 ppd x 4 years and then quit. alcohol intake: current alcohol intake frequency: a few times a week Alcohol type: beer substance use type: does not use Objective Data Objective Data Vital Signs: Vital Signs Last response Temperature 36.9 C 12/28/24 09:00 Temperature Source Core 12/28/24 09:00 Pulse Rate 74 12/28/24 09:14 Respiratory Rate 15 12/28/24 09:14 Respiratory Effort Mechanically Ventilated 12/28/24 08:00 Respiratory Depth Normal 12/28/24 08:00 Respiratory Pattern Normal 12/28/24 09:14 Blood Pressure 154/92 H 12/28/24 09:00 Blood Pressure Mean 112 12/28/24 09:00 Blood Pressure Source Monitor 12/28/24 09:00 Blood Pressure Position Semi-Fowlers 12/28/24 09:00 Blood Pressure Location Right Arm 12/28/24 09:00 Pulse Ox 94 12/28/24 09:14 Oxygen Delivery Method Mechanical Ventilator 12/28/24 09:00 Fraction of Inspired Oxygen (FIO2) 30 12/28/24 09:14 I&O: I&O Last 24 Hours 12/27/24 12/27/24 12/28/24 11:59 23:59 11:59 Intake Total 226.97 / 249.13 1216.83 / 1216.83 Output Total 550 / 550 400 / 400 Balance -323.03 / -300.87 816.83 / 816.83 I&O: Total Stay 12/27/24 13:13 thru 12/28/24 09:00 Intake Total 1443.80 Output Total 950 Balance 493.80 Current Meds Ordered / Administered: Current meds ordered / Administered Generic Name Dose Route Start Last Admin Trade Name Freq PRN Reason Stop Dose Admin Acetaminophen 650 mg 12/27/24 16:14 Acetaminophen 325 Mg Tablet PO Q6H PRN PRN Pain 1-10 Or Fever>100.7 Diphenhydramine HCl 25 mg 12/27/24 18:00 12/28/24 05:07 Diphenhydramine 50 Mg/Ml Syringe IV 25 mg Q6 YASMIN Administration Enoxaparin Sodium 40 mg 12/28/24 10:00 Enoxaparin 40 Mg/0.4 Ml Syringe SC DAILY YASMIN Hydralazine HCl 10 mg 12/27/24 18:20 12/28/24 01:38 Hydralazine 20 Mg/Ml Vial IV 10 mg Q6H PRN PRN Administration SBP>160 Protocol Fentanyl 100 mls @ 5 mls/hr 12/27/24 14:40 12/28/24 09:00 CONT INF 100 mcg/hr UD YASMIN 10 mls/hr Titration Protocol 50 MCG/HR Famotidine 20 mg/ Sodium 10 mls @ 300 mls/hr 12/27/24 22:00 12/27/24 21:35 Chloride IV Infused Q12 YASMIN Infusion Lactated Ringer's 1,000 mls @ 75 mls/hr 12/27/24 16:14 12/28/24 05:29 IV 12/28/24 18:53 75 mls/hr .[id number] YASMIN Administration Dexmedetomidine HCl 400 mcg/ 100 mls @ 11.879 mls/hr 12/27/24 16:14 12/28/24 09:00 Sodium Chloride CONT INF 0.6 mcg/kg/hr .Q8H26M YASMIN 14.3 mls/hr Titration Protocol 0.5 MCG/KG/HR Labetalol HCl 20 mg 12/27/24 16:14 12/28/24 07:09 Labetalol 20 Mg/4 Ml Vial IV 20 mg Q4H PRN PRN Administration SBP>160 Methylprednisolone 60 mg 12/27/24 22:00 12/28/24 05:06 Methylprednisolone 125 Mg/2 Ml Vial IV 60 mg Q8 YASMIN Administration Ondansetron HCl 4 mg 12/27/24 16:14 Ondansetron 4 Mg/2 Ml Vial IV Q8H PRN PRN NAUSEA/VOMITING Senna/Docusate Sodium 2 tablet 12/27/24 16:14 Senna/Docusate Sodium 1 Tablet PO BID PRN PRN Constipation Sodium Chloride 10 - 40 ml 12/27/24 16:18 12/28/24 08:44 0.9% Saline Lock 10 Ml Syringe IV 20 ml UD PRN Administration SALINE FLUSH Lab / Micro Data 12/28/24 05:08 12/28/24 05:08 Labs: Laboratory Results - last 24 hr 12/27/24 13:31: WBC 7.5, RBC 3.95 L, Hgb 14.1, Hct 40.9, MCV 103.5 H, MCH 35.7 H, MCHC 34.5, RDW Std Deviation 51.5 H, RDW Coeff of Dorie 13.3, Plt Count 200, MPV 9.7, Immature Gran % (Auto) 0.300, Neut % (Auto) 67.1, Lymph % (Auto) 9.8 L, [place] % (Auto) 11.2 H, Eos % (Auto) 10.8 H, Baso % (Auto) 0.8, Absolute Neuts (auto) 5.0, Absolute Lymphs (auto) 0.73 L, Nucleated RBC % 0, Sodium 139, Potassium 4.7, Chloride 105, Carbon Dioxide 23.1, Anion Gap 11, BUN 10, Creatinine 0.72, Estim Creat Clear Calc 93.74, Est GFR (MDRD) Non-Af 96, BUN/Creatinine Ratio 14.1, Glucose 95, Calcium 9.4, Total Bilirubin 0.80, AST 50 H, ALT 34, Alkaline Phosphatase 151 H, Total Protein 7.4, Albumin 4.0, Globulin 3.5, Albumin/Globulin Ratio 1.1 06/06/25 13:39: Total Creatine Kinase 120, Triglycerides 131 12/28/24 05:08: WBC 9.0, RBC 4.00 L, Hgb 14.4, Hct 41.5, MCV 103.8 H, MCH 36.0 H, MCHC 34.7, RDW Std Deviation 51.4 H, RDW Coeff of Dorie 13.3, Plt Count 180, MPV 9.8, Immature Gran % (Auto) 0.600, Neut % (Auto) 92.9 H, Lymph % (Auto) 5.0 L, [place] % (Auto) 1.4, Eos % (Auto) 0.0, Baso % (Auto) 0.1, Absolute Neuts (auto) 8.4 H, Absolute Lymphs (auto) 0.45 L, Nucleated RBC % 0, Sodium 137, Potassium 4.3, Chloride 105, Carbon Dioxide 19.7 L, Anion Gap 13, BUN 11, Creatinine 0.69 L, Estim Creat Clear Calc 94.14, Est GFR (MDRD) Non-Af 97, BUN/Creatinine Ratio 15.6, Glucose 178 H, Calcium 9.0, Phosphorus 3.3, Magnesium 2.1, Total Bilirubin 0.59, AST 42 H, ALT 31, Alkaline Phosphatase 149 H, Total Protein 7.2, Albumin 3.7, Globulin 3.6, Albumin/Globulin Ratio 1.0 ABG Data ABG results: ABG 12/27/24 14:53 Specimen Type ART Sample Site L Radial pH 7.43 Bicarbonate Actual 24.9 Total CO2 26 Base Excess 1 O2 Saturation 97 O2 % 30.0 ABG pCO2 37.4 ABG pO2 91 Gato Test Positive Respiration Rate 14 O2 Delivery Device Adult Vent Vent Mode AC Tidal Volume 500.0 POC PEEP 5 Imaging Radiology Impression Chest X-Ray 12/27/24 13:53 IMPRESSION: Endotracheal tube seen with tip approximately 4 cm above the bernadien. Nasogastric tube seen coursing of the stomach, with tip excluded from view. No pneumothorax is seen. No pleural effusion is evident. Bilateral lower lung airspace disease is seen, [id number]. Differential diagnosis includes atelectasis and pneumonitis. No evidence of pulmonary edema. The cardiomediastinal silhouette is within the normal range. No acute osseous change is evident. Reading Location: [address] Assessment and Plan . Assessment and plan: Physical Exam: Gen - NAD, obese, intubated HEENT - MMM. ETT in place. Mild tongue swelling improved now Resp - CTAB. Mechanically ventilated CV - RRR. No m/g/r Abd - Soft, NT, ND Ext - No c/c/e. Skin - No rashes? Neuro - Sedated, intubated I have reviewed the pertinent vital sign, laboratory, and imaging data. ASSESSMENT: # Acute hypoxic respiratory failure - intubated mainly for airway protection in setting of angioedema # Recurrent angioedema - now 3rd reported episode in the past year at this facility. Attributed to losartan one of the times but does not appear taking recently. Also with labs suggesting chronic lymphopenia and eosinophilia, ?allergic etiology # Possible PNA # EtOH cirrhosis # h/o GI bleed from AVMs # CAD # HTN # Gout # Depression/anxiety PLAN: -Cont vent VC 500/14/5/30%. Follow ABG/CXR -Check for cuff leak in AM. Possible SBT tmrw -Cont IV solumedrol, pepcid, benadryl -Check IgE, tryptase, C1 esterase -Given lymphopenia will also check HIV, hepatitis serologies -Check procal. Low threshold for empiric abx if worsening -Monitor LFTs FEN/GI: NPO Proph DVT/GI: Lovenox, pepcid Critical Care Time: 60 mins The entirety of this encounter was done via telemedicine using both audio and video. Consent was unable to be obtained for the telemedicine encounter due to the patient's mental status.
[2024-12-28] MEDS: Enoxaparin 40 MG/0.4 ML Syringe SC (12:32)
[2024-12-28] MEDS: Famotidine 200 MG/20 ML MDV 20 MG in 0.9% Normal Saline (Pres. free 8 ML 300 MG IV ×2 (12:33→22:21)
[2024-12-28 17:26] LABS: Pro- Brain NATRIURETIC PEPTIDE 2229 pg/mL (<=900); Procalcitonin 0.18 ng/mL (<=0.10)
--- NOTE | 2024-12-28 17:45 | CASEMGMT ---
RN CM NOTE: RN CM to room to complete initial assessment. Pt currently intubated. Assess deferred at this time. Eugenia BYRDN OLYA CM
[2024-12-29] VITALS (32 sets, daily range): BP systolic 119–168; BP diastolic 64–112; PULSE 56–92; RESP 8–25; TEMP 36.6–37.4; O2SAT 90–97; BMI 30.3
[2024-12-29] MEDS: DiphenhydrAMINE 50 MG/ML Syringe 25 MG IV ×5 (00:38→23:48)
[2024-12-29] MEDS: hydrALAZINE 20 MG/ML Vial 10 MG IV (01:40)
[2024-12-29] MEDS: dexMEDEtomidine 400 MCG in 0.9% Normal Saline (100mL Bag) 96 ML 14.3 MCG CONT INF (02:23)
[2024-12-29] MEDS: fentaNYL drip 100 ML 10 MCG CONT INF (04:41)
[2024-12-29 05:03] LABS: Absolute Lymphocyte Count 0.43 X10^3/uL (0.83-4.51); Absolute Neutrophil Count 13.7 X10^3/uL (2.0-7.7); Basophil# 0.02 X10^3/uL; Basophil% 0.1 % (0-1); Hematocrit 42.1 % (40-54); Hemoglobin 14.3 g/dL (13.0-16.5); Lymphocyte # 0.43 X10^3/ul (0.83-4.51); Lymphocyte % 2.9 % (19-41); Mean Corpuscular Hgb 35.8 pg (27.0-32.0); Mean Corpuscular Volume 105.5 fL (80-94); Monocyte# 0.65 X10^3/uL; Monocyte% 4.4 % (0-10); NRBC Flagged by Analyzer 0 % (0-5); Neutrophil # 13.67 X10^3/uL (2.7-7.7); Neutrophil % 92.1 % (47-70); POSITIVE DIFFERENTIAL YES; Platelet Count 198 K/mm3 (150-450); RBC Distribution Width CV 13.5 % (11.6-14.6); RBC Distribution Width SD 52.8 fl (35.1-43.9); Red Blood Count 3.99 M/mm3 (4.6-6.2); White Blood Count 14.8 K/mm3 (4.4-11.0)
[2024-12-29] MEDS: MethylPREDNISolone 125 MG/2 ML Vial 60 MG IV ×3 (05:15→21:39)
--- NOTE | 2024-12-29 05:35 | RAD_ITS ---
PROCEDURE: CHEST 1 VIEW (PORTABLE) 12/29/2024 REASON FOR EXAM: RESP FAILURE, INTUBATED TECHNIQUE: Frontal view of the chest. COMPARISON: 12/27/2024 FINDINGS: Hardware: Unchanged Heart: Heart size is mildly enlarged. Lungs: Interval increased airspace opacities in the lung bases, likely secondary to atelectasis. No pneumothorax. No large pleural effusion. No focal consolidation. Bones: The bones are unremarkable. Other: RAD/Chest 1 View (Portable) IMPRESSION: See above Reading Location: [facility]
[2024-12-29 05:47] LABS: Anion Gap 12 (5-15); BUN 17 mg/dL (4-19); BUN/Creat Ratio 20.7 RATIO (10-20); Calcium,Total 9.1 mg/dL (7.6-11.0); Carbon Dioxide 21.8 mmol/L (21.0-32.0); Chloride 105 mmol/L (98-108); EST Glomerular Filtration Rate 93 (>60); Estimated Creatinine Clearance 94.28 ml/min (50-250); Glucose 169 mg/dL (70-99); HIV Nonreactive (Nonreactive); Potassium 4.3 mmol/L (3.3-5.1); Sodium Level 139 mmol/L (133-145)
[2024-12-29 05:57] LABS: Allen Test Positive; Base Excess 4 mmol/L (-2 to +2); Bicarbonate 27.9 mmol/L (22-26); Blood Gas Specimen Type ART; Mode AC; O2 Delivery Device ET Tube; PEEP 5; PO2 76 mmHG (75-100); RR 14; SITE R Radial; SO2 96 % (95-99); Total Carbon Dioxide 29 mmol/L; pCO2 40.5 mmHg (35-45); pH 7.45 (7.35-7.45)
--- NOTE | 2024-12-29 07:18 | PCM.PN.HOSP ---
Reason for Visit Reason for Visit: Diagnoses Eosinophilia, unspecified (12/27/24) Lymphocytopenia (12/27/24) Monocytosis (symptomatic) (12/27/24) Acute respiratory failure, unspecified whether with hypoxia or hypercapnia (12/27/24) Angioneurotic edema, initial encounter (12/27/24) Subjective Subjective Successfully extubated today. Objective Data Objective Data Vital Signs: Vital Signs Temp Pulse Resp BP Pulse Ox O2 Del Method FiO2 37.4 C H 58 L 14 139/74 H 95 Mechanical Ventilator 30 12/29/24 06:00 12/29/24 07:16 12/29/24 07:16 12/29/24 06:00 12/29/24 07:16 12/29/24 06:00 12/29/24 07:16 Oxygen Delivery Method Mechanical Ventilator Weight: 96.2 kg Body Mass Index (BMI) 30.3 Intake & Output: Intake and Output for Last 24 Hours 12/27/24 12/28/24 12/29/24 23:59 23:59 23:59 Intake Total 226.97 / 249.13 2535.26 / 2559.56 185.25 / 185.25 Output Total 550 / 550 900 / 900 250 / 250 Balance -323.03 / -300.87 1635.26 / 1659.56 -64.75 / -64.75 Lab / Micro Data 12/29/24 04:50 12/29/24 04:50 Labs: Laboratory Results - last 24 hr 12/28/24 16:32: NT pro BNP II 2229 H, Procalcitonin 0.18 H 12/29/24 04:50: WBC 14.8 H, RBC 3.99 L, Hgb 14.3, Hct 42.1, MCV 105.5 H, MCH 35.8 H, MCHC 34.0, RDW Std Deviation 52.8 H, RDW Coeff of Dorie 13.5, Plt Count 198, MPV 10.0, Immature Gran % (Auto) 0.500, Neut % (Auto) 92.1 H, Lymph % (Auto) 2.9 L, [place] % (Auto) 4.4, Eos % (Auto) 0.0, Baso % (Auto) 0.1, Absolute Neuts (auto) 13.7 H, Absolute Lymphs (auto) 0.43 L, Nucleated RBC % 0, Sodium 139, Potassium 4.3, Chloride 105, Carbon Dioxide 21.8, Anion Gap 12, BUN 17, Creatinine 0.80, Estim Creat Clear Calc 94.28, Est GFR (MDRD) Non-Af 93, BUN/Creatinine Ratio 20.7 H, Glucose 169 H, Calcium 9.1, HIV 1&2 Antibody Nonreactive ABG Data ABG results: ABG 12/29/24 05:54 Specimen Type ART Sample Site R Radial pH 7.45 Bicarbonate Actual 27.9 H Total CO2 29 Base Excess 4 H O2 Saturation 96 O2 % 30.0 ABG pCO2 40.5 ABG pO2 76 Gato Test Positive Respiration Rate 14 O2 Delivery Device ET Tube Vent Mode AC Tidal Volume 500.0 POC PEEP 5 Radiography Diagnostic Testing: Radiology Impression Chest X-Ray 12/29/24 05:35 IMPRESSION: See above Reading [facility] Physical Exam Const Constitutional Narrative: Saw before extubation. Was writing with pen and paper vociferously. Tolerating SBT without resp distress. HEENT head/scalp atraumatic and moist oral mucous membranes Neck no lymphadenopathy and supple Resp normal respiratory effort, no retractions, no use of accessory muscles and clear to auscultation bilaterally Cardio regular rate, regular rhythm, S1 normal heart sound and S2 normal heart sound GI normal to inspection, nondistended, normoactive bowel sounds, soft to palpation, non-tender and non-distended Extremity normal to inspection and full ROM Neuro Sensorium / Orientation: awake and alert Assessment & Plan Assessment/Plan (1) Acute respiratory failure: PLAN: 2/2 angioedema. Required intubation to prevent respiratory collapse given the angioedema. Sedation w fentanyl and dexmedetomidine gtt. [facility] consult Extubated 12/29 (2) Angioedema: PLAN: unclear etiology. No current ACEi/ARB on home list. Has had angioedema from losartan in the past. I would be concerned about hereditary etiology. C1 esterase ordered. Follow up with allergy as oupt. Will need steroids and epi pen upon discharge. PLAN: Plan Eosinophilia: resolved. Lymphopenia: ongoing. Follow up with hematology as outpt. VTE prophylaxis: LMWH. Monitor overnight and if does well, should be ready for discharge 12/30. Charges/Coding Visit Charges Inpatient E&M: 59610 Subs Hosp L2
--- NOTE | 2024-12-29 09:19 | PN.CC_ITS ---
Objective Data Objective Data Vital Signs: Vital Signs Last response 3 Temperature 37.4 C H 12/29/24 06:00 Temperature Source Core 12/29/24 06:00 Pulse Rate 64 12/29/24 08:25 Respiratory Rate 17 12/29/24 08:25 Respiratory Effort Mechanically Ventilated 12/29/24 04:00 Respiratory Depth Normal 12/29/24 04:00 Respiratory Pattern Normal 12/29/24 08:25 Blood Pressure 139/74 H 12/29/24 06:00 Blood Pressure Mean 95 12/29/24 06:00 Blood Pressure Source Monitor 12/29/24 06:00 Blood Pressure Position Semi-Fowlers 12/29/24 06:00 Blood Pressure Location Right Arm 12/29/24 06:00 Pulse Ox 94 12/29/24 08:25 Oxygen Delivery Method Mechanical Ventilator 12/29/24 06:00 Fraction of Inspired Oxygen (FIO2) 30 12/29/24 07:16 I&O: I&O Last 24 Hours 3 12/28/24 12/28/24 12/29/24 11:59 23:59 11:59 Intake Total 1265.43 / 2559.56 1269.83 / 2559.56 185.25 / 185.25 Output Total 400 / 900 500 / 900 250 / 250 Balance 865.43 / 1659.56 769.83 / 1659.56 -64.75 / -64.75 I&O: Total Stay 3 12/27/24 13:13 thru 12/29/24 08:24 Intake Total 2947.48 Output Total 1700 Balance 1247.48 Current Meds Ordered / Administered: Current meds ordered / Administered 3 Generic Name Dose Route Start Last Admin Trade Name Freq PRN Reason Stop Dose Admin Acetaminophen 650 mg 12/27/24 16:14 Acetaminophen 325 Mg Tablet PO Q6H PRN PRN Pain 1-10 Or Fever>100.7 Chlorhexidine Gluconate 15 ml 12/28/24 10:00 12/28/24 22:21 Chlorhexidine 15 Ml PO 15 ml BID YASMIN Administration Diphenhydramine HCl 25 mg 12/27/24 18:00 12/29/24 05:17 Diphenhydramine 50 Mg/Ml Syringe IV 25 mg Q6 YASMIN Administration Enoxaparin Sodium 40 mg 12/28/24 10:00 12/28/24 12:32 Enoxaparin 40 Mg/0.4 Ml Syringe SC 40 mg DAILY YASMIN Administration Hydralazine HCl 10 mg 12/27/24 18:20 12/29/24 01:40 Hydralazine 20 Mg/Ml Vial IV 10 mg Q6H PRN PRN Administration SBP>160 Protocol Fentanyl 100 mls @ 5 mls/hr 12/27/24 14:40 12/29/24 07:00 CONT INF 100 mcg/hr UD YASMIN 10 mls/hr Titration Protocol 50 MCG/HR Famotidine 20 mg/ Sodium 10 mls @ 300 mls/hr 12/27/24 22:00 12/28/24 22:41 Chloride IV Infused Q12 YASMIN Infusion Dexmedetomidine HCl 400 mcg/ 100 mls @ 11.879 mls/hr 12/27/24 16:14 12/29/24 07:00 Sodium Chloride CONT INF 0.6 mcg/kg/hr .Q8H26M YASMIN 14.3 mls/hr Titration Protocol 0.5 MCG/KG/HR Labetalol HCl 20 mg 12/27/24 16:14 12/28/24 07:09 Labetalol 20 Mg/4 Ml Vial IV 20 mg Q4H PRN PRN Administration SBP>160 Methylprednisolone 60 mg 12/27/24 22:00 12/29/24 05:15 Methylprednisolone 125 Mg/2 Ml Vial IV 60 mg Q8 YASMIN Administration Ondansetron HCl 4 mg 12/27/24 16:14 Ondansetron 4 Mg/2 Ml Vial IV Q8H PRN PRN NAUSEA/VOMITING Senna/Docusate Sodium 2 tablet 12/27/24 16:14 Senna/Docusate Sodium 1 Tablet PO BID PRN PRN Constipation Sodium Chloride 10 - 40 ml 12/27/24 16:18 12/28/24 22:21 0.9% Saline Lock 10 Ml Syringe IV 40 ml UD PRN Administration SALINE FLUSH Lab / Micro Data 12/29/24 04:50 12/29/24 04:50 Labs: Laboratory Results - last 24 hr 12/28/24 16:32: NT pro BNP II 2229 H, Procalcitonin 0.18 H 12/29/24 04:50: WBC 14.8 H, RBC 3.99 L, Hgb 14.3, Hct 42.1, MCV 105.5 H, MCH 35.8 H, MCHC 34.0, RDW Std Deviation 52.8 H, RDW Coeff of Dorie 13.5, Plt Count 198, MPV 10.0, Immature Gran % (Auto) 0.500, Neut % (Auto) 92.1 H, Lymph % (Auto) 2.9 L, [place] % (Auto) 4.4, Eos % (Auto) 0.0, Baso % (Auto) 0.1, Absolute Neuts (auto) 13.7 H, Absolute Lymphs (auto) 0.43 L, Nucleated RBC % 0, Sodium 139, Potassium 4.3, Chloride 105, Carbon Dioxide 21.8, Anion Gap 12, BUN 17, Creatinine 0.80, Estim Creat Clear Calc 94.28, Est GFR (MDRD) Non-Af 93, B UN/Creatinine Ratio 20.7 H, Glucose 169 H, Calcium 9.1, HIV 1&2 Antibody Nonreactive ABG Data ABG results: ABG 12/29/24 05:54 Specimen Type ART Sample Site R Radial pH 7.45 Bicarbonate Actual 27.9 H Total CO2 29 Base Excess 4 H O2 Saturation 96 O2 % 30.0 ABG pCO2 40.5 ABG pO2 76 Gato Test Positive Respiration Rate 14 O2 Delivery Device ET Tube Vent Mode AC Tidal Volume 500.0 POC PEEP 5 Imaging Radiology Impression Chest X-Ray 12/29/24 05:35 IMPRESSION: See above Reading [facility] Assessment and Plan . Assessment and plan: Subjective: No acute events o/n. Awake, tolerating SBT this AM Physical Exam: Gen - NAD, obese, intubated HEENT - MMM. ETT in place. Mild tongue swelling improved now. +cuff leak Resp - Diminished in R base. Mechanically ventilated CV - RRR. No m/g/r Abd - Soft, NT, ND Ext - No c/c/e. Skin - No rashes? Neuro - Awake off sedation, following commands I have reviewed the pertinent vital sign, laboratory, and imaging data. ASSESSMENT: # Acute hypoxic respiratory failure - intubated mainly for airway protection in setting of angioedema # Recurrent angioedema - now 3rd reported episode in the past year at this facility. Attributed to losartan one of the times but does not appear taking recently. Also with labs suggesting chronic lymphopenia and eosinophilia, ?allergic etiology # Possible PNA # EtOH cirrhosis # h/o GI bleed from AVMs # Diastolic dysfunction # LBBB # CAD # HTN # Gout # Depression/anxiety PLAN: -Passed SBT this AM, will plan to extubate. -Cont IV solumedrol, pepcid, benadryl -Having low grade fever with mild procal elevation, slight worsening CXR findings. Will start empiric rocephin/doxy for now. f/u Cx, viral swab -IVF stopped. BNP elevated, may need diuretics if worsening. Prior TTE with EF 50%, diastolic dysfunction -f/u IgE, tryptase, C1 esterase -Given lymphopenia will also check hepatitis serologies. HIV negative -Monitor LFTs -Needs f/u in allergy clinic after discharge FEN/GI: NPO Proph DVT/GI: Lovenox, pepcid Updated son at bedside Critical Care Time: 50 mins The entirety of this encounter was done via telemedicine using both audio and video. Consent was unable to be obtained for the telemedicine encounter due to the patient's mental status.
[2024-12-29] MEDS: 0.9% Normal Saline (250mL Bag) 250 ML 15 ML IV (12:00)
[2024-12-29] MEDS: Ceftriaxone 1 GM/50 ML BAG IV (12:03)
[2024-12-29] MEDS: Doxycycline 100 MG in 0.9% Normal Saline (250mL Bag) 250 ML 250 MG IV ×2 (13:01→21:38)
[2024-12-29] MEDS: Enoxaparin 40 MG/0.4 ML Syringe SC (13:04)
[2024-12-29] MEDS: Famotidine 200 MG/20 ML MDV 20 MG in 0.9% Normal Saline (Pres. free 8 ML 300 MG IV ×2 (13:05→21:38)
[2024-12-29] MEDS: 0.9% Saline Lock 10 ML Syringe IV ×2 (13:05→15:55)
[2024-12-30] VITALS (10 sets, daily range): BP systolic 126–159; BP diastolic 75–87; PULSE 54–73; RESP 14–18; TEMP 36.7–37; O2SAT 91–96; BMI 30.2
[2024-12-30] MEDS: DiphenhydrAMINE 50 MG/ML Syringe 25 MG IV (05:39)
[2024-12-30] MEDS: MethylPREDNISolone 125 MG/2 ML Vial 60 MG IV (05:39)
[2024-12-30 05:50] LABS: Absolute Lymphocyte Count 0.45 X10^3/uL (0.83-4.51); Absolute Neutrophil Count 10.5 X10^3/uL (2.0-7.7); Basophil# 0.02 X10^3/uL; Basophil% 0.2 % (0-1); Hematocrit 40.2 % (40-54); Hemoglobin 13.5 g/dL (13.0-16.5); Lymphocyte # 0.45 X10^3/ul (0.83-4.51); Lymphocyte % 3.8 % (19-41); Mean Corp Hgb Conc 33.6 g/dL (32-36); Mean Corpuscular Hgb 35.9 pg (27.0-32.0); Mean Corpuscular Volume 106.9 fL (80-94); Mean Platelet Vol. 9.8 fl (6.2-12.0); Monocyte# 0.76 X10^3/uL; Monocyte% 6.4 % (0-10); NRBC Flagged by Analyzer 0 % (0-5); Neutrophil # 10.48 X10^3/uL (2.7-7.7); Neutrophil % 88.6 % (47-70); POSITIVE DIFFERENTIAL YES; Platelet Count 185 K/mm3 (150-450); RBC Distribution Width CV 13.7 % (11.6-14.6); RBC Distribution Width SD 54.1 fl (35.1-43.9); Red Blood Count 3.76 M/mm3 (4.6-6.2); White Blood Count 11.8 K/mm3 (4.4-11.0)
[2024-12-30 06:39] LABS: Anion Gap 10 (5-15); BUN 20 mg/dL (4-19); Carbon Dioxide 24.1 mmol/L (21.0-32.0); Chloride 107 mmol/L (98-108); EST Glomerular Filtration Rate 97 (>60); Estimated Creatinine Clearance 94.14 ml/min (50-250); Glucose 125 mg/dL (70-99); Sodium Level 141 mmol/L (133-145)
--- NOTE | 2024-12-30 07:03 | PN.CC_ITS ---
Assessment & Plan Assessment/Plan (1) Acute respiratory failure: (2) Angioedema: PLAN: Plan RECOMMENDATIONS: 1. Antimicrobials based upon culture results. 2. Okay to discontinue Benadryl, Pepcid and corticosteroids. 3. Recommend outpatient follow-up with allergy/immunology. 4. Encourage incentive spirometer use and mobilize patient as tolerated. 5. The patient is medically stable for transfer out of the intensive care unit. Will sign off at this time. IMPRESSIONS: 1. Acute hypoxemic respiratory failure Intubated in the emergency department secondary to history of recurrent angioedema of unclear etiology. With supportive care, including Benadryl, Pepcid and corticosteroids, the patient has improved from a clinical perspective and was able to be extubated on December 29. He is currently maintaining appropriate oxygen saturations on room air. The patient remains on antimicrobials due to staph and Streptococcus isolated from sputum culture. I would recommend that the patient follow-up with a local allergy/home health caregiver for further workup of his recurrent angioedema. This note was generated with [employer] dictation software. It may contain incorrect words, spelling, and punctuation that were not noted in checking the note before signing. Subjective Subjective The patient was seen and examined at the bedside this morning. Events from the last 24 hours have been reviewed. The patient is currently afebrile, hemodynamically stable and maintaining appropriate oxygen saturations on room air. The patient is unremarkably well from a respiratory perspective following extubation. White blood cell count is noted to be 12,000 with a stable hemoglobin and platelet count. Chemistry profile was unremarkable. Objective Data Objective Data The patient's most recent lab work, culture data and imaging studies have all been personally reviewed. Sputum cultures currently demonstrating growth of Staph aureus and Streptococcus. Vital Signs: Vital Signs Temp Pulse Resp BP Pulse Ox O2 Del Method O2 Flow Rate 98.6 F 58 L 14 145/87 H 93 Room Air 2 12/30/24 00:00 12/30/24 07:00 12/30/24 07:00 12/30/24 07:00 12/30/24 07:00 12/30/24 07:00 12/29/24 11:00 FiO2 30 12/29/24 09:00 Oxygen Flow Rate (L/min) 2 Oxygen Delivery Method Room Air Weight: 211 lb 6.773 oz Body Mass Index (BMI) 30.2 Intake & Output: Intake and Output for Last 24 Hours 12/28/24 12/29/24 12/30/24 23:59 23:59 23:59 Intake Total 2535.26 / 2559.56 1136.23 / 1136.23 800 / 800 Output Total 900 / 900 475 / 475 300 / 300 Balance 1635.26 / 1659.56 661.23 / 661.23 500 / 500 Lab / Micro Data Attestation: I reviewed the patient's lab results. 12/30/24 05:40 12/30/24 05:40 Labs: Laboratory Results - last 24 hr 12/29/24 11:30: Urine Color Cancelled, Urine Clarity Cancelled, Urine pH Cancelled, Ur Specific [place] Cancelled, U Specif Grav (Refrac) Cancelled, Urine Protein Cancelled, Urine Glucose (UA) Cancelled, Urine Ketones Cancelled, Urine Occult Blood Cancelled, Urine Nitrite Cancelled, Urine Bilirubin Cancelled, Urine Urobilinogen Cancelled, Ur Leukocyte Esterase Cancelled, Urine RBC Cancelled, Urine WBC Cancelled, Ur Squamous Epith Cells Cancelled, Ur Transition Epith Cell Cancelled, Ur Renal Epithelial Cell Cancelled, Calcium Oxalate Crystal Cancelled, Uric Acid Crystals Cancelled, Triple Phos Crystals Cancelled, Other Crystals Cancelled, Amorphous Sediment Cancelled, Urine Bacteria Cancelled, Hyaline Casts Cancelled, Fine Granular Casts Cancelled, Coarse Granular Casts Cancelled, Waxy Casts Cancelled, RBC Casts Cancelled, WBC Casts Cancelled, Urine Mucus Cancelled, Urine Trichomonas Cancelled, Urine Yeast Cancelled 12/30/24 05:40: WBC 11.8 H, RBC 3.76 L, Hgb 13.5, Hct 40.2, MCV 106.9 H, MCH 35.9 H, MCHC 33.6, RDW Std Deviation 54.1 H, RDW Coeff of Dorie 13.7, Plt Count 185, MPV 9.8, Immature Gran % (Auto) 1.000 H, Neut % (Auto) 88.6 H, Lymph % (Auto) 3.8 L, [place] % (Auto) 6.4, Eos % (Auto) 0.0, Baso % (Auto) 0.2, Absolute Neuts (auto) 10.5 H, Absolute Lymphs (auto) 0.45 L, Nucleated RBC % 0, Sodium 141, Potassium 4.0, Chloride 107, Carbon Dioxide 24.1, Anion Gap 10, BUN 20 H, Creatinine 0.70, Estim Creat Clear Calc 94.14, Est GFR (MDRD) Non-Af 97, B UN/Creatinine Ratio 29.0 H, Glucose 125 H, Calcium 9.0 Micro: Microbiology 12/28/24 16:30 Sputum, Induced/Lukens Respiratory Culture - Preliminary Staphylococcus aureus 12/29/24 11:30 Mucosa - Nasopharyngeal SARS-CoV-2, Influenza & RSV (PCR) - Final 12/27/24 14:03 Sputum, Induced/Lukens Respiratory Culture - Final Mixed normal respiratory adrian. No Streptococcus pneumoniae, beta-hemolytic Streptococcus or Staphylococcus aureus isolated. Physical Exam Const alert, oriented x3 and no apparent distress General Appearance: cooperative HEENT normocephalic, head/scalp atraumatic and moist oral mucous membranes Eyes PERRL, EOMs intact bilaterally and conjunctivae normal Neck supple General: trachea midline Chest inspection of chest normal Resp normal respiratory effort Auscultation: Negative for rales, rhonchi or wheezes Cardio regular rate and regular rhythm GI normal to inspection, nondistended, normoactive bowel sounds Extremity no clubbing, cyanosis or edema Skin no rashes or lesions noted Neuro CN's II-XII intact bilaterally, moves all extremities and no focal motor deficits Psych cooperative and affect normal Charges/Coding Visit Charges Inpatient E&M: 78381 Subs Hosp L2
[2024-12-30] MEDS: Enoxaparin 40 MG/0.4 ML Syringe SC (08:32)
[2024-12-30] MEDS: Doxycycline 100 MG in 0.9% Normal Saline (250mL Bag) 250 ML 250 MG IV (08:35)
--- NOTE | 2024-12-30 08:54 | PCM.DC.SUM ---
Providers Date of Admission: 12/27/24 Primary Care Physician: Dr. Valeriano Beasley MD Consultations 12/27/24 16:14 Consult: Residency Program Coordinator / Pulmonary Medicine Routine Consulting Provider: Intensivists/Pulmonary Med Reason for Consult: Acute respiratory failure secondary to angioedema EMERGENT Consult: No MD Notified: Yes Date Notified: 12/27/24 Time Notified: 14:08 Method of Notification: Verbal Reason For Visit: ACUTE RESPIRATORY FAILURE 2/2 ANGIOEDEMA Diagnosis Discharge Diagnosis (1) Acute respiratory failure: Status: Acute Code(s): J96.00 - Acute respiratory failure, unspecified whether with hypoxia or hypercapnia Plan: 2/2 angioedema. Required intubation to prevent respiratory collapse given the angioedema. Sedation w fentanyl and dexmedetomidine gtt. [facility] consult Extubated 12/29 (2) Angioedema: Status: Acute Code(s): T78.3XXA - Angioneurotic edema, initial encounter Plan: unclear etiology. No current ACEi/ARB on home list. Has had angioedema from losartan in the past. I would be concerned about hereditary etiology. C1 esterase ordered. Follow up with allergy as oupt. Will need steroids and epi pen upon discharge. Plan Eosinophilia: resolved. Lymphopenia: ongoing. Follow up with hematology as outpt. VTE prophylaxis: LMWH. Monitor overnight and if does well, should be ready for discharge 12/30. Medications at Discharge Home Medications allopurinol 100 mg tablet 100 mg PO DAILY GOUT 03/25/22 atorvastatin 80 mg tablet 80 mg PO QHS CHOLESTEOL 03/25/22 ezetimibe 10 mg tablet 10 mg PO QHS CHOLESTEROL 09/02/22 nitroglycerin 0.4 mg sublingual tablet 0.4 mg sublingual UD PRN Chest Pain 09/02/22 ascorbic acid (vitamin C) 500 mg tablet 1,000 mg (2 x 500 mg) PO BIDCM 30 days #120 tabs 09/09/22 cholecalciferol (vitamin D3) 125 mcg (5,000 unit) capsule 125 mcg PO DAILY supplement 09/01/23 omega 3-dha 100 mg-epa 400 mg-fish oil 1,000 mg capsule 1 cap PO DAILY PRN supplement 09/01/23 vitamin B complex (B Complex-Vitamin B12 tablet) 1 tab PO DAILY feet 09/01/23 isosorbide mononitrate 30 mg tablet,extended release 24 hr 30 mg PO QAM bp 04/15/24 amlodipine 5 mg tablet 5 mg PO QDAY bp 09/19/24 carvedilol 12.5 mg tablet 12.5 mg PO BID bp 09/19/24 fexofenadine 180 mg tablet 180 mg PO QODAY allergies 09/19/24 gabapentin 300 mg capsule 600 mg PO BID neuropathy 09/19/24 doxepin 25 mg capsule 25 mg PO QHS mood 11/05/24 aspirin 81 mg capsule 81 mg PO DAILY heart 12/29/24 epinephrine 0.3 mg/0.3 mL injection, auto-injector (EpiPen) 0.3 mg (0.3 mL) IM X1 PRN anaphylaxis/angioedema #1 ea 12/30/24 prednisone 20 mg tablet 40 mg (2 x 20 mg) PO DAILY #10 tabs 12/30/24 Hospital Course Operations None Procedures None Summary of Care Provided Minutes Spent on Discharge: 32 Hospital Course: Patient presented with angioedema and was intubated due to impending airway collapse. Patient started on steroids and has done well. Patient was intubated then extubated on the eighth. Patient will be discharged home to continue with prednisone. Patient previously had angioedema due to losartan in the past but she is no longer taking or any other JOSE inhibitor's. Concern for hereditary angioedema and a C1 esterase was ordered here but still pending. Patient is recommend to follow-up with an stereo plotter operator as outpatient. Patient also have prescription for EpiPen available in case anything like this or In the future. Patient advised that if this does happen again that if he does take EpiPen and best at better he should still seek attention. Weight / BMI Weight Weight: 95.9 kg Body Mass Index (BMI) 30.2 ABG / Lab / Microbiology Data 12/30/24 05:40 12/30/24 05:40 Laboratory: Laboratory Results - last 24 hr 12/29/24 11:30: Urine Color Cancelled, Urine Clarity Cancelled, Urine pH Cancelled, Ur Specific [place] Cancelled, U Specif Grav (Refrac) Cancelled, Urine Protein Cancelled, Urine Glucose (UA) Cancelled, Urine Ketones Cancelled, Urine Occult Blood Cancelled, Urine Nitrite Cancelled, Urine Bilirubin Cancelled, Urine Urobilinogen Cancelled, Ur Leukocyte Esterase Cancelled, Urine RBC Cancelled, Urine WBC Cancelled, Ur Squamous Epith Cells Cancelled, Ur Transition Epith Cell Cancelled, Ur Renal Epithelial Cell Cancelled, Calcium Oxalate Crystal Cancelled, Uric Acid Crystals Cancelled, Triple Phos Crystals Cancelled, Other Crystals Cancelled, Amorphous Sediment Cancelled, Urine Bacteria Cancelled, Hyaline Casts Cancelled, Fine Granular Casts Cancelled, Coarse Granular Casts Cancelled, Waxy Casts Cancelled, RBC Casts Cancelled, WBC Casts Cancelled, Urine Mucus Cancelled, Urine Trichomonas Cancelled, Urine Yeast Cancelled 12/30/24 05:40: WBC 11.8 H, RBC 3.76 L, Hgb 13.5, Hct 40.2, MCV 106.9 H, MCH 35.9 H, MCHC 33.6, RDW Std Deviation 54.1 H, RDW Coeff of Dorie 13.7, Plt Count 185, MPV 9.8, Immature Gran % (Auto) 1.000 H, Neut % (Auto) 88.6 H, Lymph % (Auto) 3.8 L, [place] % (Auto) 6.4, Eos % (Auto) 0.0, Baso % (Auto) 0.2, Absolute Neuts (auto) 10.5 H, Absolute Lymphs (auto) 0.45 L, Nucleated RBC % 0, Sodium 141, Potassium 4.0, Chloride 107, Carbon Dioxide 24.1, Anion Gap 10, BUN 20 H, Creatinine 0.70, Estim Creat Clear Calc 94.14, Est GFR (MDRD) Non-Af 97, BUN/Creatinine Ratio 29.0 H, Glucose 125 H, Calcium 9.0 Microbiology: Microbiology 12/28/24 16:30 Sputum, Induced/Lukens Respiratory Culture - Preliminary Staphylococcus aureus 12/29/24 11:30 Mucosa - Nasopharyngeal SARS-CoV-2, Influenza & RSV (PCR) - Final 12/27/24 14:03 Sputum, Induced/Lukens Respiratory Culture - Final Mixed normal respiratory adrian. No Streptococcus pneumoniae, beta-hemolytic Streptococcus or Staphylococcus aureus isolated. D/C Instructions Discharge Diet: No restrictions DC O2, CPAP, BIPAP Needs Home O2 Discharge instructions: No Meaningful Use Info Meaningful Use Meaningful Use Diagnoses (Choose all that apply): None applicable Ischemic Stroke Statin Dosing Therapy Reference: STATIN DOSE THERAPY REFERENCE: * Patients > 75 years receive moderate or high dose statin therapy. * Patients 75 years or YOUNGER should receive HIGH intensity statin dose unless contraindicated. You will be required to document reason for non-treatment if statin daily dose does not meet guidelines. HIGH DOSE STATIN THERAPY DAILY Atorvastatin > than or = to 40 mg Rosuvastatin > than or = to 20 mg Amlodipine + Atorvastatin > than or = to 2.5/40 mg Ezetimibe + Simvastatin 10/80 mg Simvastatin 80mg Discharge Plan Admission Admit Date/Time: 12/27/24 13:58 Primary Reason for Your Visit: Angioedema Attending Provider: Alexi Olivas Primary Care Provider: Valreiano Beasley Consulting Providers: Tony Shultz; Ej Murguia; Ricci Ballesteros; Homer Guzman; Se Ty; Joni Garsia; Viktor Francis; Belia Villanueva; Spike Floyd; Eric Dockery; Jim Marin; Isabel Hagen; Jaquelin Singh; Nelda Conde; Kasi Pina; Juancarlos Rebollar; Drew Gibbons; Kenan Crawley; Carl Lieberman; Ran Perea; Gregory Hernandez; Mohit Myers; Chava Crowe; Flakita Florentino Instructions Additional Instructions / Restrictions: You had recurrent angioedema but is unclear what was the cause this time. I do recommend a follow-up with allergy and immunology to further evaluate what may be the underlying cause for this. In the meantime you will be on a short course of prednisone and I will have a prescription available for you for an EpiPen if anything like this would happen the future. If you do have angioedema and you do use your EpiPen and even if you get better, please seek attention in the emergency room because it could potentially still get worse. Allergy and Immunology: [facility] [phone]. Dr. Ortiz [phone]. Discharge Orders/Prescriptions Prescriptions: New prednisone 20 mg tablet 40 mg PO DAILY Qty: 10 0RF epinephrine [EpiPen] 0.3 mg/0.3 mL auto-injector 0.3 mg IM X1 PRN (Reason: anaphylaxis/angioedema) Qty: 1 0RF Rx Instructions: for 2 doses Continued cholecalciferol (vitamin D3) 125 mcg (5,000 unit) capsule 125 mcg PO DAILY vitamin B complex [B Complex-Vitamin B12] Tablet 1 tab PO DAILY omega 4-hqq-dtu-fish oil 100-400-1,000 mg capsule 1 cap PO DAILY PRN (Reason: supplement) isosorbide mononitrate 30 mg tablet extended release 24 hr 30 mg PO QAM gabapentin 300 mg capsule 600 mg PO BID carvedilol 12.5 mg tablet 12.5 mg PO BID amlodipine 5 mg tablet 5 mg PO QDAY fexofenadine 180 mg tablet 180 mg PO QODAY doxepin 25 mg capsule 25 mg PO QHS atorvastatin 80 mg Tablet 80 mg PO QHS allopurinol 100 mg Tablet 100 mg PO DAILY nitroglycerin 0.4 mg tablet, sublingual 0.4 mg sublingual UD PRN (Reason: Chest Pain) Patient Comments: PLACE 1 TABLET UNDER TONGUE EVERY 5 MINS, UP TO 3 DOSES NEEDED FOR CHEST PAIN Rx Instructions: PLACE 1 TABLET UNDER TONGUE EVERY 5 MINS, UP TO 3 DOSES NEEDED FOR CHEST PAIN ezetimibe 10 mg tablet 10 mg PO QHS ascorbic acid (vitamin C) 500 mg Tablet 1,000 mg PO BIDCM 30 Days Qty: 120 0RF Rx Instructions: Take with iron tablets aspirin 81 mg capsule 81 mg PO DAILY Discontinued fluoxetine 40 mg capsule 40 mg PO QDAY Referrals / Follow Up: Valeriano Beasley MD [Primary Care Provider] - Within 2 Weeks Disposition Disposition (needs filled in before D/C Order can be placed): Home, Self Care Charges/Coding Visit Charges Inpatient E&M: 01539 Disch Hosp >30min
--- NOTE | 2024-12-30 10:04 | CASEMGMT ---
RN CM Assessment Face to Face with patient for initial transition planning/care coordination assessment. RN CM introduced self and role at [facility], pt voices understanding. Pt is A&Ox4 and is resting comfortably in bed and is calm. Care providers, pharmacy, and demographics verified. Admitting dx: Acute RF, Angioedema LACE Strata: 3 PCP: Valeriano Beasley Specialists: Fidencio (Cardio). Pt to get established with an Termite Exterminator and follow up as an OP as recommended by the hospitalist. Pt requesting assistance with this. This RN CM called the local Termite Exterminator ([facility]. [facility] with [facility]) who states that the pt himself needs to call to schedule the appt. This RN CM provided the pt with the contact number and was encouraged to call. Preferred [facility]acy[facility] Insurance: AAR [employer] ADV Prescription Benefit: Yes LNOK: Ke (Sons) Living Arrangements: Pt lives alone in a split level home with 5-7 steps between floors and 2 steps to enter ADLs/IADLs: Pt reports that he is indep and denies concerns Transportation: Self, sons DME: Denies HHC/SNF: Denies Pt?s goal: Home Plan: Home, follow up with an Termite Exterminator as an OP. Pt states that he feels safe with this plan and denies the need for additional therapy or needs including HHC or OP therapy. Pt states that he plans to follow up with the Termite Exterminator and get his new prescriptions today. Pt denies further needs at this time. Pt RN updated as the pt is ready for DC today. Glenn Nunez RN, CM
[2024-12-31 05:07] LABS: HEPATITIS B SURFACE AG Negative (Negative); Hep C Antibodies Non Reactive (Non Reactive); Hepatitis A IgM Antibody Negative (Negative); Hepatitis B Core AB IgM Negative (Negative)
[2024-12-31 16:09] LABS: C1 EST Inhibitor, Functional 102 (.)
[2025-01-02 06:08] LABS: Immunoglobulin E 214 IU/mL (6-495)
== END 2024-12-30 11:58 | disposition home or self-care (01) | DRG 915 ==
LOC: ED 14:12 → ICU 15:19
PROVIDERS: Internal Medicine Pulmonary Disease; Admitting Provider Internal Medicine; Emergency Provider Emergency Medicine; PCP Family Medicine
DX: T78.3XXA Angioneurotic edema, initial encounter (principal); J96.00 Acute respiratory failure, unspecified whether with hypoxia or hypercapnia; K70.30 Alcoholic cirrhosis of liver without ascites; F32.A Depression, unspecified; I10 Essential (primary) hypertension; E66.9 Obesity, unspecified; E78.5 Hyperlipidemia, unspecified; J30.2 Other seasonal allergic rhinitis; F41.9 Anxiety disorder, unspecified; D72.810 Lymphocytopenia; I25.10 Atherosclerotic heart disease of native coronary artery without angina pectoris; G62.9 Polyneuropathy, unspecified; I25.2 Old myocardial infarction; Z95.5 Presence of coronary angioplasty implant and graft; Z87.891 Personal history of nicotine dependence; Z79.899 Other long term (current) drug therapy; Z79.82 Long term (current) use of aspirin; Z68.30 Body mass index [BMI] 30.0-30.9, adult; X58.XXXA Exposure to other specified factors, initial encounter
CPT/HCPCS: 31500; 31720; 36600; 51702; 71045; 80048; 80053; 80074; 82550; 82785; 82803; 83520; 83735; 83880; 84100; 84145; 84478; 85025; 86161; 86703; 87040; 87070; 87077; 87186; 87205; 87631; 93005; 94002; 94003; 94660; 94668; 94762; 97162; 97802; 99252; 99285; A4216; G0463; J0330

== ENCOUNTER 2025-01-23 19:29 | Inpatient (IN) | payer MEDICARE, SELFPAY ==
[2023-08-23 15:18] VITALS: BMI 28.3
[2025-01-23 19:30] VITALS: BP 147/90; PULSE 88; RESP 20; TEMP 36.3; O2SAT 96; BMI 29.9
[2025-01-23 20:36] LABS: Hematocrit 31.0 % (40-54); Hemoglobin 10.5 g/dL (13.0-16.5); Immature Granulocytes Count 0.040 X10^3/uL (0.0-0.0); Mean Corp Hgb Conc 33.9 g/dL (32-36); Mean Corpuscular Volume 106.2 fL (80-94); Mean Platelet Vol. 9.5 fl (6.2-12.0); NRBC Flagged by Analyzer 0 % (0-5); Platelet Count 167 K/mm3 (150-450); RBC Distribution Width CV 13.8 % (11.6-14.6); RBC Distribution Width SD 53.4 fl (35.1-43.9); Red Blood Count 2.92 M/mm3 (4.6-6.2); White Blood Count 5.4 K/mm3 (4.4-11.0)
[2025-01-23 21:10] LABS: AST(SGOT) 35 U/L (<=37); Alanine Aminotransfer ALT/SGPT 30 U/L (<=46); Albumin, Serum 3.8 g/dL (3.4-4.8); Alkaline Phosphatase 103 U/L (40-129); Anion Gap 13 (5-15); BUN 12 mg/dL (4-19); BUN/Creat Ratio 15.1 RATIO (10-20); Calcium,Total 9.0 mg/dL (7.6-11.0); Carbon Dioxide 19.9 mmol/L (21.0-32.0); Chloride 107 mmol/L (98-108); Estimated Creatinine Clearance 91.26 ml/min (50-250); Globulin 2.9 g/dL (2.2-4.2); Glucose 100 mg/dL (70-99); Lipase 39 U/L (13-75); Potassium 3.8 mmol/L (3.3-5.1)
[2025-01-23 21:14] LABS: Mucous, Urine 0 SEEN /hpf (<or=2+)
[2025-01-23 21:26] VITALS: BP 155/87; PULSE 83; RESP 18; O2SAT 96
--- NOTE | 2025-01-23 21:35 | ED.VIS.GI ---
HPI HPI - GI History of Present Illness Chief Complaint: GI Bleed Informant: patient Nausea/Vomiting/Emesis GI Symptom: Negative for Nausea Diarrhea/Melena/Hematochezia GI Symptom: Positive for Hematochezia Onset: Today and Yesterday Associated Symptoms Associated Symptoms: Negative for Dysuria, Frequency, Hematuria or Urgency Narrative Narrative: 74-year-old male, on baby aspirin prior [place] hypertension prior GI bleed sounds like a diverticular bleed that he was transfused 3 units of blood in the hospital for 12 days earlier this year. States that he believes another lower GI bleed started yesterday intermittent. Dark red to maroon-colored blood. No hematemesis. No nausea. No coffee-ground emesis. He is on aspirin but no other blood thinners. He denies any abdominal pain. Prior similar symptoms: Yes Recent Illness/Hospitalization: Yes PFSH PFS Medical History High serum parathyroid hormone (PTH) Heart murmur Elevated alkaline phosphatase level Elevated PSA Diverticulosis AVM (arteriovenous malformation) of colon Vitamin D deficiency Gout Alcohol abuse Essential hypertension Chest pain Anxiety Depression Myocardial infarct Chest pain Acute blood loss anemia Bloody diarrhea Coronary artery disease Atherosclerotic heart disease of [place] coronary artery without angina pectoris ST elevation [place] (STEMI) (~11/29/21) Hyperlipidemia Hypertension Home Medications ?Medication ?Instructions ?Recorded ?Last Taken ?Type allopurinol 100 mg tablet 100 mg PO DAILY GOUT 03/25/22 09/02/22 History atorvastatin 80 mg tablet 80 mg PO QHS CHOLESTEOL 03/25/22 09/01/22 History ezetimibe 10 mg tablet 10 mg PO QHS CHOLESTEROL 09/02/22 09/01/22 History nitroglycerin 0.4 mg sublingual 0.4 mg sublingual UD PRN Chest Pain 09/02/22 Unknown History tablet ascorbic acid (vitamin C) 500 mg 1,000 mg (2 x 500 mg) PO BIDCM 30 09/09/22 Unknown Rx tablet days #120 tabs cholecalciferol (vitamin D3) 125 125 mcg PO DAILY supplement 09/01/23 Unknown History mcg (5,000 unit) capsule omega 3-dha 100 mg-epa 400 mg-fish 1 cap PO DAILY PRN supplement 09/01/23 Unknown History oil 1,000 mg capsule vitamin B complex (B 1 tab PO DAILY feet 09/01/23 Unknown History Complex-Vitamin B12 tablet) isosorbide mononitrate 30 mg 30 mg PO QAM bp 04/15/24 Unknown History tablet,extended release 24 hr amlodipine 5 mg tablet 5 mg PO QDAY bp 09/19/24 Unknown History carvedilol 12.5 mg tablet 12.5 mg PO BID bp 09/19/24 Unknown History fexofenadine 180 mg tablet 180 mg PO QODAY allergies 09/19/24 Unknown History gabapentin 300 mg capsule 600 mg PO BID neuropathy 09/19/24 Unknown History doxepin 25 mg capsule 25 mg PO QHS mood 11/05/24 Unknown History aspirin 81 mg capsule 81 mg PO DAILY heart 12/29/24 Unknown History epinephrine 0.3 mg/0.3 mL 0.3 mg (0.3 mL) IM X1 PRN 12/30/24 Unknown Rx injection, auto-injector (EpiPen) anaphylaxis/angioedema #1 ea prednisone 20 mg tablet 40 mg (2 x 20 mg) PO DAILY #10 tabs 12/30/24 Unknown Rx Allergy/AdvReac Type Severity Reaction Status Date / Time losartan Allergy Severe Angioedema Verified 01/23/25 19:30 hydrochlorothiazide Allergy Hives Verified 01/23/25 19:30 Family History Mother COPD (chronic obstructive pulmonary disease) Lung cancer Father Heart disease Hypertension Myocardial infarction age 53 following [place]. Surgical History H/O colonoscopy S/P cataract extraction Presence of coronary angioplasty implant and graft (~11/29/21) Social History household members: none Smoking Status: Former smoker how long ago did patient quit smoking: Smoked from age 18, 1 ppd x 4 years and then quit. alcohol intake: current alcohol intake frequency: a few times a week Alcohol type: beer substance use type: does not use ROS ROS ED ROS Narrative Blood per rectum. Constitutional Constitutional ED: Denies chills or fever(s) ENT ENT ED: Denies ear pain Cardiovascular Cardiovascular: Denies chest pain Respiratory/Chest Respiratory/Chest: Denies cough Gastrointestinal Gastrointestinal: Reports other; Denies abdominal pain, constipation, diarrhea, melena, nausea or vomiting Genitourinary Genitourinary ED: Denies hematuria Musculoskeletal Musculoskeletal: Denies arthralgias Integumentary Denies abscess Neurologic Neurologic: Denies headache(s) Psychiatric Psychiatric: Denies anxiety Endocrine Endocrinology: Denies polydipsia Hematologic/Lymphatic Hematologic/Lymphatic: Denies easy bleeding, easy bruising or lymphadenopathy Allergic/Immunologic Allergic/Immunologic ED: Denies mouth swelling, tongue swelling or urticaria EXAM Physical Exam Narrative Exam Narrative: Well-appearing 74-year-old male. Vital signs stable afebrile. H EENT exam pupils round react to light. Active motions are intact. Neck nontender. No JVD. No lymphadenopathy. Lungs clear to auscultation bilaterally. Heart regular rhythm 4/6 systolic ejection murmur. Chest wall nontender. Abdomen soft nontender. No peritoneal signs. Moving all 4 extremities. Nontender no edema no cords. Patient is awake and alert. No focal motor deficits. Answer questions following commands. Const Vital Signs: 01/23/25 19:30 01/23/25 21:26 Temperature 97.3 F L Temperature Source Temporal Pulse Rate 88 83 Respiratory Rate 20 H 18 Blood Pressure 147/90 H 155/87 H Blood Pressure Mean 109 109 Pulse Ox 96 96 Oxygen Delivery Method Room Air Room Air Positive well nourished and well developed; Negative for obese, cachectic, contractures or unkempt General Appearance ED: well developed and NAD; Negative for unkempt, cachectic, contractures or pallor Nutritional Appearance: Negative for cachectic or obese HEENT Reports moist mucous membranes normocephalic and atraumatic Eyes PERRL and EOMs intact bilaterally Neck no lymphadenopathy, supple and no JVD Resp normal respiratory effort and clear to auscultation bilaterally Cardio regular rate, regular rhythm, S1 normal heart sound and S2 normal heart sound; Negative for no murmurs Cardio Narrative: 4 over 6 systolic ejection murmur. GI non-tender, non-distended and no masses Palpation: soft; Negative for tender or guarding Back/Spine no CVA tenderness Extremity full ROM General Extremety ED: Negative for edema or tenderness General Extremity: Negative for edema Neuro CN's II-XII intact bilaterally and moves all extremities Sensorium / Orientation: alert, oriented to person, oriented to place and oriented to time; Negative for orientation impaired, confused or lethargic Motor Exam: strength 5/5 throughout Psych mental status grossly normal and thought process normal Appearance: Negative for unkempt Attitude: No agitated Mood & Affect: Negative for depressed, anxious or tearful Skin no wounds General Skin Exam: Negative for jaundice or pallor Lesions: no lesions Rashes: no rashes MDM MDM MDM Narrative Medical decision making narrative: 73-year-old male suspect lower GI bleed. He showed me pictures on his cell phone that looks like dark red blood per rectum. Consistent with lower GI bleed. History of prior diverticular bleed on aspirin. Screening labs obtained his hemoglobin went from 13.5-10.5 in a month. I have the hospitalist on page for admission. History & Record Review Discussion w/independent historian: Patient Additional record(s) reviewed:: Prior inpatient record, Prior outpatient record, Prior ED visit and Prior labs Lab Data Attestation: I reviewed the patient's lab results. Lab results narrative: CBC shows a white count of 5 H&H 10.5 and 31. Platelets 167. Electrolytes sodium 140 gap 13. Normal BUN of 12 creatinine 0.8. Glucose 100. Liver enzymes normal. Lipase normal at 39. Triage labs by nursing. Labs: Laboratory Results - last 24 hr 01/23/25 20:21 WBC 5.4 RBC 2.92 L Hgb 10.5 L Hct 31.0 L MCV 106.2 H MCH 36.0 H MCHC 33.9 RDW Std Deviation 53.4 H RDW Coeff of Dorie 13.8 Plt Count 167 MPV 9.5 Immature Gran % (Auto) 0.700 Neut % (Auto) 58.3 Lymph % (Auto) 16.0 L [place] % (Auto) 13.7 H Eos % (Auto) 10.6 H Baso % (Auto) 0.7 Absolute Neuts (auto) 3.1 Absolute Lymphs (auto) 0.86 Nucleated RBC % 0 Sodium 140 Potassium 3.8 Chloride 107 Carbon Dioxide 19.9 L Anion Gap 13 BUN 12 Creatinine 0.82 Estim Creat Clear Calc 91.26 Est GFR (MDRD) Non-Af 92 BUN/Creatinine Ratio 15.1 Glucose 100 H Calcium 9.0 Total Bilirubin 0.74 AST 35 ALT 30 Alkaline Phosphatase 103 Total Protein 6.6 Albumin 3.8 Globulin 2.9 Albumin/Globulin Ratio 1.3 Lipase 39 Discharge Plan Triage Chief Complaint: GI Bleed ED Provider: Dawit Mcclure Dx/Rx/DC Orders Clinical Impression: Acute lower gastrointestinal bleeding, Anemia, History of [place] (myocardial infarction), History of GI diverticular bleed Prescriptions: No Action cholecalciferol (vitamin D3) 125 mcg (5,000 unit) capsule 125 mcg PO DAILY vitamin B complex [B Complex-Vitamin B12] Tablet 1 tab PO DAILY omega 6-hgu-zky-fish oil 100-400-1,000 mg capsule 1 cap PO DAILY PRN (Reason: supplement) isosorbide mononitrate 30 mg tablet extended release 24 hr 30 mg PO QAM gabapentin 300 mg capsule 600 mg PO BID carvedilol 12.5 mg tablet 12.5 mg PO BID amlodipine 5 mg tablet 5 mg PO QDAY fexofenadine 180 mg tablet 180 mg PO QODAY doxepin 25 mg capsule 25 mg PO QHS atorvastatin 80 mg Tablet 80 mg PO QHS allopurinol 100 mg Tablet 100 mg PO DAILY nitroglycerin 0.4 mg tablet, sublingual 0.4 mg sublingual UD PRN (Reason: Chest Pain) Patient Comments: PLACE 1 TABLET UNDER TONGUE EVERY 5 MINS, UP TO 3 DOSES NEEDED FOR CHEST PAIN Rx Instructions: PLACE 1 TABLET UNDER TONGUE EVERY 5 MINS, UP TO 3 DOSES NEEDED FOR CHEST PAIN ezetimibe 10 mg tablet 10 mg PO QHS ascorbic acid (vitamin C) 500 mg Tablet 1,000 mg PO BIDCM 30 Days Qty: 120 0RF Rx Instructions: Take with iron tablets aspirin 81 mg capsule 81 mg PO DAILY prednisone 20 mg tablet 40 mg PO DAILY Qty: 10 0RF epinephrine [EpiPen] 0.3 mg/0.3 mL auto-injector 0.3 mg IM X1 PRN (Reason: anaphylaxis/angioedema) Qty: 1 0RF Rx Instructions: for 2 doses Primary Care Provider: Valeriano Beasley Referrals: Valeriano Beasley MD [Primary Care Provider] - Print Language: [place] Disposition Disposition: Acute Care Hospital [facility]
[2025-01-23 21:38] VITALS: BP 155/87; PULSE 70; RESP 16; TEMP 36.7; O2SAT 97
--- NOTE | 2025-01-23 22:07 | PCM.HP.STD ---
[facility] - General General Date of Admission: 01/23/25 Date of Service: 01/23/25 Chief Complaint: Lower GI Bleed. HPI Narrative NICO HUTTON, is a 74 M with a past medical history of essential hypertension; carvedilol and amlodipine, hyperlipidemia; on atorvastatin plus ezetimibe, overweight; with BMI of 29.9 this admission, fatty liver disease, former tobacco abuse, CAD; s/p STEMI (2021) s/p stents x 4 (RCA+LAD) on BASA daily plus prn SL NTG, history of EtOH cirrhosis, history of LGIB with AVM of colon in addition to previous diverticular bleed, neuropathy; on gabapentin BID, history of Left renal calculi, depression with anxiety; on doxepin, seasonal allergies; on fexofenadine, gout; on allopurinol, OA and recent admission here from December 27, 2024 to December 30, 2024 for treatment of acute respiratory failure due to recurrent angioedema (attributed to losartan) with patient requiring intubation who presents to [facility] ER complaining of LGIB. Mr. Hutton reports his symptoms began approximately one day prior to admission with 1 episode of a large volume of bloody stools with hematochezia. He describes the stool as dark red to maroon colored. He denies associated nausea, vomiting or abdominal pain. He also denies related fever, chills, chest pain, palpitations, heart racing, SOB, hematuria, dysuria, headache or rash. He states his symptoms are very similar to his previous LGIB in 2022. In the ER he was diagnosed with LGIB suspected to be from a recurrent diverticular source with ABLA evidenced by hemoglobin of 10.5 g/dL present on admission (down from 13.5 g/dL on December 30, 2024) with Macrocytosis of 106.2 fL present on admission due to at least in part to Adverse Drug Reaction to BASA complicated by UA positive for Acute Cystitis; without hematuria and he was then admitted to the PCU for ongoing care for a stay that is expected to extend beyond 2 midnights. [facility] Medical History (Updated 01/24/25 @ 05:[address] Se Hampton, ) High serum parathyroid hormone (PTH) Heart murmur Elevated alkaline phosphatase level Elevated PSA Diverticulosis AVM (arteriovenous malformation) of colon Vitamin D deficiency Gout Alcohol abuse Essential hypertension Chest pain Anxiety Depression Myocardial infarct Chest pain Acute blood loss anemia Bloody diarrhea Coronary artery disease Atherosclerotic heart disease of [place] coronary artery without angina pectoris ST elevation [place] (STEMI) (~11/29/21) Hyperlipidemia Hypertension Home Medications ?Medication ?Instructions ?Recorded ?Last Taken ?Type allopurinol 100 mg tablet 100 mg PO DAILY GOUT 03/25/22 01/23/25 08:20 History atorvastatin 80 mg tablet 80 mg PO QHS CHOLESTEOL 03/25/22 01/22/25 20:21 History ezetimibe 10 mg tablet 10 mg PO QHS CHOLESTEROL 09/02/22 01/22/25 23:22 History nitroglycerin 0.4 mg sublingual 0.4 mg sublingual UD PRN Chest Pain 09/02/22 Unknown History tablet ascorbic acid (vitamin C) 500 mg 1,000 mg (2 x 500 mg) PO BIDCM 30 09/09/22 Unknown Rx tablet days #120 tabs cholecalciferol (vitamin D3) 125 125 mcg PO DAILY supplement 09/01/23 01/23/25 08:21 History mcg (5,000 unit) capsule omega 3-dha 100 mg-epa 400 mg-fish 1 cap PO DAILY PRN supplement 09/01/23 01/23/25 08:24 History oil 1,000 mg capsule vitamin B complex (B 1 tab PO DAILY feet 09/01/23 01/23/25 08:24 History Complex-Vitamin B12 tablet) isosorbide mononitrate 30 mg 30 mg PO QAM bp 04/15/24 01/23/25 08:23 History tablet,extended release 24 hr amlodipine 5 mg tablet 5 mg PO QDAY bp 09/19/24 01/23/25 08:20 History carvedilol 12.5 mg tablet 12.5 mg PO BID bp 09/19/24 01/23/25 20:21 History gabapentin 300 mg capsule 600 mg PO BID neuropathy 09/19/24 01/23/25 23:21 History doxepin 25 mg capsule 25 mg PO QHS mood 11/05/24 Unknown History aspirin 81 mg capsule 81 mg PO DAILY heart 12/29/24 01/23/25 08:21 History epinephrine 0.3 mg/0.3 mL 0.3 mg (0.3 mL) IM X1 PRN 12/30/24 Unknown Rx injection, auto-injector (EpiPen) anaphylaxis/angioedema #1 ea cetirizine 10 mg tablet (24Hour 10 mg PO DAILY PRN allergy symptoms 01/23/25 01/23/25 08:24 History Allergy) Allergy/AdvReac Type Severity Reaction Status Date / Time losartan Allergy Severe Angioedema Verified 01/23/25 19:30 hydrochlorothiazide Allergy Hives Verified 01/23/25 19:30 Family History Mother COPD (chronic obstructive pulmonary disease) Lung cancer Father Heart disease Hypertension Myocardial infarction age 53 following [place]. Surgical History H/O colonoscopy S/P cataract extraction Presence of coronary angioplasty implant and graft (~11/29/21) Social History household members: none Smoking Status: Former smoker how long ago did patient quit smoking: Smoked from age 18, 1 ppd x 4 years and then quit. alcohol intake: current alcohol intake frequency: a few times a week Alcohol type: beer substance use type: does not use ROS ROS Narrative Review of Systems: Constitutional: Patient denies fever or chills. Eyes: Patient denies changes in vision or discharge from eyes. ENT: Patient denies runny nose, sore throat or ear pain. Resp: Patient denies SOB or cough. CV: Patient denies chest pain, palpitations, heart racing or LE edema. GI: Patient admits to LGIB as per HPI but he denies abdominal pain, nausea or vomiting. : Patient denies dysuria or hematuria. MSK: Patient denies arthralgias or myalgias. Skin: Patient denies rash, abscess, wounds or jaundice. Psych: Patient dernies symptoms of uncontrolled depression or anxiety. Neuro: Patient denies headache, paresthesias or focal neurologic deficits. Hematology: Patient admits to hematochezia as per HPI. Endocrinology: Patient denies polyuria, polydipsia, polyphagia or heat/cold intolerance. 14 point ROS otherwise negative except for positives noted above in HPI. Vital Signs Vital Signs Vital Signs: 01/23/25 19:30 01/23/25 21:26 01/23/25 21:38 Temperature 97.3 F L 98.1 F Temperature Source Temporal Pulse Rate 88 83 70 Respiratory Rate 20 H 18 16 Blood Pressure 147/90 H 155/87 H 155/87 H Blood Pressure Mean 109 109 109 Pulse Ox 96 96 97 Oxygen Delivery Method Room Air Room Air Weight Weight: 208 lb 8.917 oz Body Mass Index (BMI) 29.9 Physical Exam Const alert, oriented x3, no apparent distress, average body habitus and healthy appearing General Appearance: cooperative HEENT normocephalic, head/scalp atraumatic and hearing grossly normal bilaterally HEENT Narrative: Mucous membranes dry. Eyes PERRL, EOMs intact bilaterally and conjunctivae normal Neck no lymphadenopathy, supple and no JVD Resp normal respiratory effort, no retractions, no use of accessory muscles and clear to auscultation bilaterally Cardio regular rate and regular rhythm Cardio Narrative: 4/6 systolic ejection murmur at LSB. GI normal to inspection, nondistended, normoactive bowel sounds, soft to palpation, non-tender and non-distended Extremity normal to inspection, full ROM and no clubbing, cyanosis or edema Skin Skin Narrative: Patient has no evidence of rash, abscess, wounds or jaundice. Neuro oriented x3, CN's II-XII intact bilaterally, moves all extremities and no focal motor deficits Sensorium / Orientation: awake, alert, oriented to person, oriented to place and oriented to time Speech: speech normal Psych affect normal Results Lab / Micro Data 01/24/25 04:04 01/24/25 04:04 Labs: Laboratory Results - last 24 hr 01/23/25 20:21: WBC 5.4, RBC 2.92 L, Hgb 10.5 L, Hct 31.0 L, MCV 106.2 H, MCH 36.0 H, MCHC 33.9, RDW Std Deviation 53.4 H, RDW Coeff of Dorie 13.8, Plt Count 167, MPV 9.5, Immature Gran % (Auto) 0.700, Neut % (Auto) 58.3, Lymph % (Auto) 16.0 L, [place] % (Auto) 13.7 H, Eos % (Auto) 10.6 H, Baso % (Auto) 0.7, Absolute Neuts (auto) 3.1, Absolute Lymphs (auto) 0.86, Nucleated RBC % 0, Sodium 140, Potassium 3.8, Chloride 107, Carbon Dioxide 19.9 L, Anion Gap 13, BUN 12, Creatinine 0.82, Estim Creat Clear Calc 91.26, Est GFR (MDRD) Non-Af 92, BUN/Creatinine Ratio 15.1, Glucose 100 H, Calcium 9.0, Total Bilirubin 0.74, AST 35, ALT 30, Alkaline Phosphatase 103, Total Protein 6.6, Albumin 3.8, Globulin 2.9, Albumin/Globulin Ratio 1.3, Lipase 39 Assessment & Plan Assessment/Plan (1) Acute lower gastrointestinal bleeding: (2) ABLA (acute blood loss anemia): (3) Adverse drug reaction: QUALIFIERS: Encounter type: initial encounter Qualified Code(s): T50.905A - Adverse effect of unspecified drugs, medicaments and biological substances, initial encounter (4) History of GI diverticular bleed: (5) Acute cystitis without hematuria: (6) Overweight (BMI 25.0-29.9): PLAN: Plan 1. LGIB suspected to be from a recurrent diverticular source with ABLA evidenced by hemoglobin of 10.5 g/dL present on admission (down from 13.5 g/dL on December 30, 2024) with Macrocytosis of 106.2 fL present on admission - Admit to PCU. Keep n.p.o. except for ice chips, sips and medications. Start pantoprazole 40 mg IV twice daily. Finally, we will consult gastroenterology disease patient on rounds in the a.m. further recommendations regarding colonoscopy this admission with help appreciated advance. 2. Adverse Drug Reaction to BASA likely triggering #1 - Hold aspirin until further notice with likely need for cessation with recurrent LGIB. 3. History of LGIB with AVM of colon in addition to previous diverticular bleed complicating #1 & #2 - Noted. 4. UA positive for Acute Cystitis; without hematuria exacerbating #1 & #2 - Start IV ceftriaxone and await culture and sensitivity data. 5. Recent admission here from December 27, 2024 to December 30, 2024 for treatment of acute respiratory failure due to recurrent angioedema (attributed to losartan) with patient requiring intubation adding to the medical complexity of #1 - #3 - Noted. 6. CAD; s/p STEMI (2021) s/p stents x 4 (RCA+LAD) on BASA daily plus prn SL NTG - Stable. Hold baby aspirin but give sublingual nitroglycerin as needed if chest pain develops. 7. Overweight; with BMI of 29.9 this admission plus fatty liver disease adding to the burden of disease outlined from #1 - #6 - Weight loss will be recommended. Check TSH. 8. History of EtOH cirrhosis - Stable. 9. Essential hypertension; carvedilol and amlodipine - Hold scheduled antihypertensives in light of #1. 10. Hyperlipidemia; on atorvastatin plus ezetimibe - Hold oral medications until patient cleared for oral intake by GI. 11. Former tobacco abuse - Noted. 12. Neuropathy; on gabapentin BID - Restart this agent after colonoscopy. 13. History of Left renal calculi - Noted. 14. Depression with anxiety; on doxepin - Stable. 15. Seasonal allergies; on fexofenadine - Give diphenhydramine IV prn for breakthrough symptoms. 16. Gout; on allopurinol - Stable with no evidence of acute flare at this time. 17. OA - Stable. 18. DVT/GI prophylaxis - SCD's only in light of #1 contraindicating chemoprophylaxis. Pantoprazole 40 mg IV BID. Total time: Approximately (but not less than) 75 minutes. Charges/Coding Visit Charges Inpatient E&M: 59103 Init Hosp L3
[2025-01-23 22:31] LABS: Color, Urine Straw (Yellow); Glucose, Dipstick Normal (Normal); Ketone-Dipstick Negative (Negative); Leukocyte Esterase-Dipstick 100 /ul (Negative); Nitrite-Dipstick Negative (Negative); Occult Blood-Urine Negative /ul (Negative); Protein-Dipstick Negative (Negative); Specific Gravity, Urine 1.015 (1.002-1.030); Urine Bilirubin Dipstick Negative (Negative)
[2025-01-23 22:42] LABS: Red Blood Cells-Urine 0-5 SEEN /hpf (0-5); Squamous Epithelial Cells - UA 0-5 SEEN /hpf (0-5)
[2025-01-23 23:00] VITALS: BMI 29.5
[2025-01-23 23:30] VITALS: BP 139/82; PULSE 67; RESP 16; TEMP 35.2; O2SAT 98
--- OUTSIDE RECORDS SUMMARY | 2025-01-23 23:39 | XMS RPT_ITS | CCD ---
Author Organization [facility] Care Team Providers Care Sales Representative Supervisor Name Role Phone VALERIANO BEASLEY MD Primary Care Physician [phone] Valeriano Beasley MD Primary Care Provider Valeriano Beasley MD Primary Care Provider Valeriano Beasley MD Primary Care Provider Dr. Valeriano Beasley Primary Care Provider Dr. Marino Holguin Emergency Provider Dr. Jael Ramos Admit Provider Dr. Jael Ramos Other Provider FriendDr. Leo Attending Provider Dr. Lukas Cuevas Attending Provider Dr. Jael Ramos Referring Provider Dr. Melissa Corbin Attending Provider Dr. Melissa Corbin Other Provider Dr. Lukas Cuevas Other Provider Dr. Obdulio Crespo Other Provider Dr. Obdulio Crespo Attending Provider Dr. Valeriano Beasley Primary Care Provider Dr. Marino Holguin Emergency Provider [phone] Dr. Jael Ramos Admit Provider Dr. Jael Ramos Other Provider Friend, Dr. Leo Attending Provider Dr. Obdulio Crespo Referring Provider Dr. Lukas Cuevas Attending Provider Dr. Jael Ramos Referring Provider Korkarin, Dr. Melissa Whitman Referring Provider Korkarin, Dr. Melissa Whitman Attending Provider Korkarin, Dr. Melissa Whitman Other Provider Mason, Dr. Gaytan Other Provider Dr. Obdulio Crespo Other Provider Dr. Obdulio Crespo Attending Provider Mason, Dr. Gaytan Referring Provider [phone] Jorgito Moss Attending Provider Dr. Rizwana Hagen Referring Provider Liz Navarro Attending Provider Unavailable Dr. Valeriano Beasley Referring Provider Edilberto SILVER SERVICE WAITER, SILVER SERVICE WAITER-C Xochilt Estrada Attending Provider YUSRA LUNA, TESSA Stanford Attending Unavailable GALE LUNA, VALERIANO Stanford Primary Care Unavailable TESSA GUZMAN MD Attending Unavailable GALE LUNA, VALERIANO Stanford Primary Care Unavailable PHYSICIAN, NONE Admitting Unavailable TOM NASH MD, DR GERBER Attending Unav VALERIANO Mcnair MD Primary Care Unavailable Dr. Valeriano Beasley Primary Care Provider Dr. Valeriano Beasley Referring Provider Dr. Valeriano Beasley Other Provider Dr. Jung Braun Attending Provider Dr. José Miguel Valverde Attending Provider Dr. Lukas Cuevas Attending Provider Price SILVER SERVICE WAITER, SILVER SERVICE WAITER-C Estefany Attending Provider Dr. Valeriano Beasley Primary Care Provider Dr. Valeriano Beasley Referring Provider Dr. José Miguel Valverde Attending Provider Dr. Lukas Cuevas Attending Provider Price GRANDE, FAUSTO Allison Attending Provider Dr. Alexi Jaime Attending Provider Gale LUNA, Valeriano Stanford Primary Care Provider Suzan [employer].COMMERCIAL REVIEW APPRAISER, Ni Unavailable Samir JOHNSON, Suzanna Unavailable Carrie Magana MD, Patria Solis Unavailable Gale LUNA, Dr. Bal Primary Care Provider Dr. Stan Gilbert DO Attending Provider Vladimir FLORES, Dr. Pierce Emergency Provider Francis LUNA, Dr. Jalloh Attending Provider Francis LUNA, Dr. Jalloh Referring Provider Gale LUNA, Dr. Bal Referring Provider Anderson LUNA, Dr. Geovani Martines Attending Provider Anderson LUNA, Dr. Geovani Martines Referring Provider Estefany Cool Attending Provider Suzan [employer].COMMERCIAL REVIEW APPRAISER, Ni Unavailable Samir JONHSON, Suzanna Unavailable Gale LUNA, Dr. Bal Primary Care Provider Dr. Marino Holguin MD Emergency Provider Dr. Flakita Florentino DO Admit Provider Dr. Flakita Florentino DO Attending Provider Dr. Flakita Florentino DO Other Provider Carrington LUNA, Dr. Jimenez Other Provider Shantal LUNA, Dr. Pagan Other Provider Favian LUNA, Dr. Wynne Other Provider Dr. Homer Guzman DO Other Provider Melony LUNA, Dr. Tessa Martinez Other Provider [phone] Sun LUNA, Dr. Quinones Other Provider Penny LUNA, Dr. Hoang Other Provider Kay LUNA, Dr. Celaya Other Provider Everett LUNA, Dr. Lala Other Provider [phone] Sarkis LUNA, Dr. Reyes Other Provider [phone] Tomas LUNA, Dr. Fernandez Other Provider Xiao LUNA, Dr. Hall Other Provider [phone] Samantha LUNA, Dr. Hammer Other Provider Unavailabl courtney Conde MD, Dr. Lutz Other Provider [phone] Yovani LUNA, Dr. Villaseñor Other Provider Smooth LUNA, Dr. Bauer Other Provider Edwige LUNA, Dr. Russell Other Provider Denisa FLORES, Dr. Grayson Other Provider [phone] Luisana LUNA, Dr. Henry Other Provider [phone] Eliazar LUNA, Dr. Tong Other Provider [phone] Gregory Hernandez DO Other Provider Louis LUNA, Dr. Rueda Other Provider Sebastien LUNA, Dr. Larsen Other Provider Dr. Alexi Olivas DO Attending Provider Dr. Flakita Florentino DO Attending Provider [phone] Alexi Olivas DO Other Provider Dr. Homer Guzman DO Attending Provider PATRIA KHANNA JR Referring Unavailable VALERIANO BEASLEY Primary Care Unavailable PATRIA KHANNA JR Attending Unavailable VALERIANO BEASLEY Primary Care Unavailable SELF Referring Unavailable GALE, VALERIANO A Primary Care Unavailable NI SAUCEDA Referring Unavailable GALE, VALERIANO A Primary Care Unavailable NI SAUCEDA Attending Unavailable GALE, VALERIANO A Primary Care Unavailable SUZANNA DAWSON Referring Unavailable KHANNAPATRIA ALVAREZ JR Referring Unavailable GALE, VALERIANO A Primary Care Unavailable KHANNA PATRIA SIDHU Referring Unavailable GALE, VALERIANO A Primary Care Unavailable GALE, VALERIANO A Primary Care Unavailable STEPHANIE ROY A Attending Unavailable KHANNAPATRIA ALVAREZ JR Referring Unavailable GALE, VALERIANO A Primary Care Unavailable KHANNA , PATRIA Solsi Referring Unavailable GALE, VALERIANO A Primary Care Unavailable GALE, VALERIANO A Primary Care Unavailable KHANNA , PATRIA Solis Referring Unavailable GALE, VALERIANO A Primary Care Unavailable KHANNAPATRIA ALVAREZ JR Attending Unavailable SELF Referring Unavailable JASWINDER REDMOND Referring Unavailable GALE, VALERIANO A Primary Care Unavailable GALE, VALERIANO A Referring Unavailable JASWINDER REDMOND Attending Unavailable GALE, VALERIANO A Primary Care Unavailable GALE, VALERIANO A Attending Unavailable GALE, VALERIANO A Primary Care Unavailable GALE, VALERIANO A Primary Care Unavailable SZUANNA DAWSON Attending Unavailable GALE, VALERIANO A Primary Care Unavailable MASCI, STEPHANIE A Referring Unavailable GALE, VALERIANO A Primary Care Unavailable KHANNAPATRIA ALVAREZ JR Referring Unavailable MASCI, STEPHANIE A Attending Unavailable GALE, VALERIANO A Primary Care Unavailable NI SAUCEDA Attending Unavailable GALE, VALERIANO A Primary Care Unavailable GALE, VALERIANO A Primary Care Unavailable SUZANNA DAWSON Attending Unavailable GALE, VALERIANO A Primary Care Unavailable PATRIA KHANNA JR Referring Unavailable NYLA DE JESUS Attending Unavailable GALE, VALERIANO A Primary Care Unavailable SELF Referring Unavailable SUZANNA DAWSON Attending Unavailable GALE, VALERIANO A Primary Care Unavailable SUZANNA DAWSON Referring Unavailable GALE, VALERIANO A Primary Care Unavailable MASCI, STEPHANIE A Referring Unavailable GALE, VALERIANO A Primary Care Unavailable LIZA NYLA Referring Unavailable GALE, VALERIANO A Primary Care Unavailable MASCI, STEPHANIE A Referring Unavailable 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 [employer]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 [employer].COMMERCIAL REVIEW APPRAISER, Ni Unavailable Suzanna Dawson PA-C Unavailable Flakita Florentino Attending Unavailable Gale, Valeriano Primary Care Unavailable Gale, Valeriano Primary Care Unavailable Geovani Barron Attending Unavailable Geovani Barron Referring Unavailable [facility] Primary Care Unavailable Geovani Barron Referring Unavailable Geovani Barron Attending Unavailable Tony Shultz Consulting Unavailable [facility] Primary [facility] Unavailable Alexi Olivas Attending Unavailable Flakita Florentino Admitting Unavailable Shantal, Ej Consulting Unavailable Ricci Ballesteros Consulting Unavailable Homer Guzman Consulting Unavailable Tessa Ty Consulting Unavailable Joni Garsia Consulting Unavailable Penny, Viktor Consulting Unavailable Habtefarhat, Belia Consulting Unavailab le Dand, Spike Consulting Unavailable Dockery, Eric Consulting Unavailable Tomas, Jim Consulting Unavailable Xiao, Isabel Consulting Unavailable Aljundi, Lamia Consulting Unavailable Conde, Nelda Consulting Unavailable Yovani, Kasi Consulting Unavailable Irukulla, Juancarlos Consulting Unavailable Edwige, Drew Consulting Unavailable Dhesi, Kenan Consulting Unavailable Carl Lieberman Consulting Unavailable Ran Perea Consulting Unavailable Gregory Hernandez Consulting Unavailable Mohit Myers Consulting Unavailable Patria Crowe Consulting Unavailable Flakita Florentino Consulting Unavailable Alexi Olivas Consulting Unavailable Shubham Blanco Attending Unavailable Francis, Shubham Referring Unavailable [facility] Primary [facility] Unavailable Shubham Blanco Attending Unavailable Francis, Shubham Referring Unavailable [facility] Primary Care Unavailable [facility] Primary Care Unavailable Suzanna Goodman Attending Unavailable Suzanna Goodman Referring Unavailable [facility] Primary Care Unavailable Geovani Barron Referring Unavailable Geovani Barron Attending Unavailable [facility] Primary Care Unavailable Alexi Olivas Attending Unavailable Flakita Florentino Admitting Unavailable Tony Shultz Consulting Unavailable Shantal, Ej Consulting Unavailable Ricci Ballesteros Consulting Unavailable Homer Guzman Consulting Unavailable Tessa Ty Consulting Unavailable Joni Garsia Consulting Unavailable Penny, Viktor Consulting Unavailable Habtegechelsea, Belia Consulting Unavailab le Dand, Spike Consulting Unavailable Dockery, Eric Consulting Unavailable Marin, Jim Consulting Unavailable Xiao, Isabel Consulting Unavailable Aljundi, Lamia Consulting Unavailable Conde, Nelda Consulting Unavailable Yovani, Kasi Consulting Unavailable Irukulla, Juancarlos Consulting Unavailable Edwige, Drew Consulting Unavailable Dhesi, Kenan Consulting Unavailable Lieberman, Sujoy Consulting Unavailable Benkelman, Soleyah Consulting Unavailable Ferbossman, Gregory Consulting Unavailable Louis, Mohit Consulting Unavailable Patria Crowe Consulting Unavailable Flakita Florentino Consulting Unavailable Shubham Blanco Attending Unavailable Shubham Blanco Referring Unavailable Gale, Valeriano Primary Care Unavailable Gale, Valeriano Primary Care Unavailable Stan Gilbert Attending Unavailable Gale, Valeriano Primary Care Unavailable Luis Frank Attending Unavailable Alexi Olivas Referring Unavailable Homer Guzman Attending Unavailable Shubham Blanco Attending Unavailable Gale, Valeriano Primary Care Unavailable Gale, Valeriano Referring Unavailable Gale, Valeriano Primary Care Unavailable Gale, Valeriano Referring Unavailable Estefany Thrasher Attending Unavailable Gale, Valeriano Primary Care Unavailable Gale, Valeriano Referring Unavailable Estefany Thrasher Attending Unavailable Gale, Valeriano Referring Unavailable Gale, Valeriano Primary Care Unavailable Shubham Blanco Attending Unavailable Gale, Valeriano Primary Care Unavailable Gale, Valeriano Referring Unavailable Estefany Thrasher Attending Unavailable Gale LUNA, Dr. Bal Primary Care Provider Anderson LUNA, Dr. Geovani Martines Attending Provider [phone] Anderson LUNA, Dr. Geovani Martines Referring Provider [phone] Gale LUNA, Dr. Bal Referring Provider Dr. Shubham Blanco MD Attending Provider Francis LUNA, Dr. Jalloh Referring Provider Dr. Alexi Olivas DO Referring Provider Dr. Jae Mcclure MD Emergency Provider Dr. Tessa Hampton DO Admit Provider Unavail able Dr. Tessa Hampton DO Attending Provider Unav ailable Allergies Allergy Classification Reported Allergen(s) Allergy Type Date of Onset Reaction(s) Facility (20 sources) hydroCHLOROthiazide; Translations: [hydrochlorothiazide] Drug Allergy 008 Unknown [facility] Work Phone: Comment on above: rash (20 sources) environmental [Other] Propensity to adverse reactions 008 Unknown [facility] Work Phone: (20 sources) Angiotensin II receptor antagonist; Translations: [ARB-ANGIOTENSIN RECEPTOR ANTAGONIST] Drug Intolerance Other: See Comments [facility] (20 sources) Sertraline; Translations: [SERTRALINE] Drug Allergy Other: See Comments [facility] (7 sources) Losartan Drug Allergy 024 Angioedema [facility] (1 source) hydroCHLOROthiazide Drug Allergy [facility] (1 source) Losartan Drug Allergy [facility] Medications Current Medications Medication Drug Class(es) Dates Sig (Normalized) Sig (Original) allopurinol 100 mg oral tablet (20 sources) Xanthine Oxidase Inhibitor Start: 09-27-2021 End: 09-25-2024 take 1 tablet by mouth once daily Allopurinol 100 mg Tablet Active 100 mg PO DAILY March 25, 2022 12:00am GOUT Comment on above: TAKE 1 TABLET BY ALISON TH ONCE DAILY. FOR GOUT. amLODIPine 5 mg oral tablet (20 sources) Dihydropyridine Calcium Channel Iban Start: 05-01-2024 End: 01-01-2025 take 1 tablet by mouth once daily Amlodipine 5 mg tablet Active 5 mg PO daily September 19, 2024 1:00am bp Start: 04-04-2024 End: 09-19-2024 take 1 tablet by mouth once daily Amlodipine 10 mg tablet Discontinued 10 mg PO daily April 15, 2024 12:00am September 19, 2024 3:18pm Start: 11-29-2021 amLODIPine Ora l, qDay, 0 Refill(s) Start Date: 11/29/21 Status: Ordered Start: 09-27-2021 take 1 tablet by ailson th once daily amLODIPine (NORVASC) 5 mg tablet Take 1 tablet by mouth once daily. 90 tablet 1 09/27/2021 Active Start: 05-30-2013 take 1 mg by mouth once daily Amlodipine Active MG PO DAILY May 30, 2013 12:00am Comment on above: Take 1 tablet by alison th once daily. ascorbic acid 500 mg oral tablet (20 sources) Vitamin C Start: 09-09-2022 take 1 tablet by mouth twice daily at mealtime Ascorbic Acid (Vitamin C) 500 mg Tablet Active 1000 mg PO TWICE DAILY WITH MEALS 120 30 0 September 09, 2022 1:00am Take with iron tablets Start: 09-09-2022 take 1 tablet by alison th twice daily at mealtime Ascorbic Acid (Vitamin C) Active 1000 MG PO TWICE DAILY WITH MEALS 120 30 September 09, 2022 1:00am Take with iron tablets Start: 03-25-2022 take 500 mg by mouth once vesna y Ascorbic Acid (Vitamin C) Active 500 MG PO DAILY March 24, 2022 11:00pm Start: 11-30-2021 ascorbic acid 500 mg oral capsule Dose : 500 mg = 1 cap(s), Oral, qDay, # 30 cap(s), 0 Refill(s) Start Date: 11/30/21 Status: Ordered Comment on above: Take 500 mg by mouth once daily. aspirin 81 mg oral tablet (20 sources) Platelet Aggregation Inhibitor, Nonsteroidal Anti-inflammatory Drug Start: 12-29-2024 take 1 capsule by mouth once daily Aspirin 81 mg capsule Active 81 mg PO DAILY December 29, 2024 12:00am heart Start: 03-25-2022 take 81 mg by mouth once daily Aspirin Active 81 MG PO DAILY March 24, 2022 11:00pm Start: 11-29-2021 End: 09-19-2024 take 1 tablet by mouth once daily Aspirin 81 mg tablet,delayed release (DR/EC) Discontinued 81 mg PO DAILY September 02, 2022 1:00am September 19, 2024 3:20pm HEALTH MAINTENANCE Comment on above: Take 81 mg by mouth once daily. Take 1 tablet by alison th once daily. atorvastatin 80 mg oral tablet (20 sources) HMG-CoA Reductase Inhibitor Start: 11-29-2021 atorvastatin Oral, qDay, 0 Refill(s) Start Date: 11/29/21 Status: Ordered Start: 09-27-2021 End: 09-25-2024 take 1 tablet by mouth at bedtime Atorvastatin 80 mg Tablet Active 80 mg PO AT BEDTIME March 25, 2022 12:00am CHOLESTEOL Comment on above: TAKE 1 TABLET BY ALSION TH ONCE DAILY. FOR CHOLESTEROL. Blood Pressure Monitor (20 sources) Start: 024 Blood Pressure Monitor Indications: Essential hypertension, benign 1 Each once daily. 1 Kit 05/01/2024 Active carvedilol 12.5 mg oral tablet (20 sources) alpha-Adrenergic Iban, beta-Adrenergic Iban Start: End: take 1 tablet by mouth twice daily Carvedilol 12.5 mg tablet Active 12.5 mg PO TWICE A DAY September 19, 2024 1:00am bp cholecalciferol 0.125 mg oral capsule (20 sources) Vitamin D Start: take 1 capsule by mouth once daily Cholecalciferol (Vitamin D3) 125 mcg (5,000 unit) capsule Active 125 ug PO DAILY September 01, 2023 1:00am supplement Start: 03-25-2022 take 125 ug by mouth once daily Cholecalciferol (Vitamin D3) Active 125 MCG PO DAILY March 24, 2022 11:00pm Start: 11-30-2021 cholecalcifero l 125 mcg (5000 intl units) oral capsule Dose : 5,000 unit(s) = 1 cap(s), Oral, qDay, 0 Refill(s) Start Date: 11/30/21 Status: Ordered take 1 tablet by alison th once daily cholecalciferol (VITAMIN D3) 5,000 unit tab Take 5,000 Units by mouth once daily. Active Comment on above: Take 5,000 Units by mouth once daily. Co D35-[id number] Oil-[place] 3-E (4 sources) Start: 03-25-2022 Co S24-Fdme Oil-[place] 3-E Active CAP PO March 24, 2022 11:00pm Start: 03-25-2022 Co V75-Yydl Oi l-[place] 3-E Active CAP PO March 25, 2022 12:00am docosahexaenoic acid/epa (FI SH OIL ORAL) (20 sources) take 1000 mg by mouth once daily docosahexaenoic acid/epa (FISH OIL ORAL) Take 1,000 mg by mouth once daily. Active docosahexaenoic acid/epa (FISH OIL ORAL) Take 1,000 mg by mouth. Active docosahexaenoic acid/epa (FISH OIL ORAL) Take 1,000 mg by mouth. 0 Active Comment on above: Take 1,000 mg by alison th. doxepin hydrochloride 25 mg oral capsule (20 sources) Tricyclic Antidepressant Start: take 1 capsule by mouth at bedtime Doxepin 25 mg capsule Active 25 mg PO AT BEDTIME November 05, 2024 12:00am mood Start: 03-15-2021 End: 06-04-2024 take 1 capsule by mouth at bedtime as needed Doxepin 25 mg capsule Discontinued 25 mg PO AT BEDTIME as needed December 09, 2022 11:04am June 04, 2024 8:11am Comment on above: Take 1 capsule by mo [facility] daily at bedtime. [id number] 0.3 ml EPINEPHrine 1 mg/ml auto-injector (5 sources) alpha-Adrenergic Agonist, beta-Adrenergic Agonist, Catecholamine Start: 12-30-2024 EPINEPHrine (EPIPEN) 0.3 mg/0.3 mL auto-injector 0.3 mg. 12/30/2024 Active Start: 12-30-2024 Epinephrine (E pipen) 0.3 mg/0.3 mL auto-injector Active 0.3 mg IM ONE TIME as needed for anaphylaxis/angioedema 1 December 30, 2024 9:00am for 2 doses ezetimibe 10 mg oral tablet (20 sources) Dietary Cholesterol Absorption Inhibitor Start: 04-18-2022 End: 01-01-2025 take 1 tablet by mouth at bedtime Ezetimibe 10 mg tablet Active 10 mg PO AT BEDTIME September 02, 2022 1:00am CHOLESTEROL Comment on above: Take 1 tablet by [facility] once daily. fexofenadine hydrochloride 180 mg oral tablet (20 sources) Histamine-1 Receptor Antagonist Start: 09-19-2024 take 1 tablet by mouth every other day Fexofenadine 180 mg tablet Active 180 mg PO EVERY OTHER DAY September 19, 2024 1:00am allergies Start: 08-19-2024 End: 09-25-2024 take 1 tablet by mouth once daily fexofenadine (MARII ALLERGY) 180 mg tablet Take 1 tablet by mouth once daily. 90 tablet 3 08/19/2024 Active Fish Oils (2 sources) Start: 11-30-2021 Fish Oil 1000 mg oral capsule Dose : 1,000 mg = 1 cap(s), Oral, qDay, 0 Refill(s) Start Date: 11/30/21 Status: Ordered gabapentin 300 mg oral capsule (20 sources) Anti-epileptic Agent Start: 09-19-2024 End: 03-23-2025 take 2 capsules by mouth twice daily Gabapentin 300 mg capsule Active 600 mg PO TWICE A DAY September 19, 2024 1:00am neuropathy Start: 08-30-2024 End: 11-28-2024 take 1 capsule by mouth twice daily gabapentin (NEURONTIN) 300 mg capsule Indications: Neuropathy, idiopathic , Abnormal SPEP Take 1 capsule by mouth two times a day for 90 days. 60 capsule 2 08/30/2024 Active 24 hr isosorbide mononitrate 30 mg extended release oral tablet (20 sources) Nitrate Vasodilator Start: 04-15-2024 take 1 tablet by mouth once daily in the morning, then take 1 tablet by mouth every twenty-four hours Isosorbide Mononitrate 30 mg tablet extended release 24 hr Active 30 mg PO EVERY MORNING April 15, 2024 12:00am bp iv contrast (will be provided with radiology test) (2 sources) Start: 02-07-2024 End: 02-07-2024 inject 1 dose intravenously once iv contrast (will be provided with radiology test) CTA Head/Neck W No IV access, insert saline lock prior to the sedation, infusion, injection for imaging exam. Discontinue saline lock post exam. If Pt. has a central line or IVAD, may access for administration according to line specific nursing protocol. Once exam is complete flush line and de-access according to line specific nursing protocol in the CT contrast administration guidelines link. 1 Each 0 02/07/2024 02/07/2024 Discontinued Start: 08-21-2023 End: 08-22-2023 iv contrast (will be provide d with radiology test) Indications: Other specified disorders of kidney and ureter , Kidney lesion CT kidney wow Inject, intravenously, once for 1 dose.No IV access, insert saline lock prior to the beginning of sedation, infusion, injection of imaging exam. Discontinue saline lock post exam. If Pt. has a central line or IVAD, may access for administration according to line specific nursing protocol. Once exam is complete flush line and de-access according to line specific nursing protocol in the CT contrast administration guidelines link. 1 Each 0 08/21/2023 08/22/2023 Comment on above: CT kidney wow Inject , intravenously, once for 1 dose.No IV access, insert saline lock prior to the beginning of sedation, infusion, injection of imaging exam. Discontinue saline lock post exam. If Pt. has a central line or IVAD, may access for administration according to line specific nursing protocol. Once exam is complete flush line and de-access according to line specific nursing protocol in the CT contrast administration guidelines link. Lisinopril (6 sources) Angiotensin Converting Enzyme Inhibitor Start: 11-29-2021 lisinopril Oral, qDay, 0 Refill(s) Start Date: 11/29/21 Status: Ordered Start: 09-27-2021 take 1 tablet by alison th once daily lisinopril (ZESTRIL, PRINIVIL) 40 mg tablet Take 1 tablet by mouth once daily. 90 tablet 1 09/27/2021 Active Start: 05-30-2013 take 1 mg by mouth once daily Lisinopril Active MG PO DAILY May 30, 2013 12:00am Comment on above: Take 1 tablet by alison th once daily. multivitamin tablet (20 sources) Start: 04-18-2022 take 1 tablet by mouth once daily multivitamin tablet Take 1 tablet by mouth once daily. 04/18/2022 Active Start: 04-18-2022 take 1 tablet by alison th once daily multivitamin tablet Take 1 tablet by mouth once daily. 0 04/18/2022 Active Comment on above: Take 1 tablet by alison th once daily. Ludrcyttkcha-Nge-Lp on-Fa-Vit K (Adults Multivitamin) 18 mg iron-400 mcg-25 mcg Tablet (4 sources) Start: 03-25-2022 take 1 tablet by mouth once Wsweffmyxowb-Dqo-Mkn n-Fa-Vit K (Adults Multivitamin) 18 mg iron-400 mcg-25 mcg Tablet Active TABLET PO March 24, 2022 11:00pm Start: 03-25-2022 take 1 tablet by alison th once Ewrydbkobdmw-Lhp-Bmgb-Fa-Vit K (Adults Multivitamin) 18 mg iron-400 mcg-25 mcg Tablet Active TABLET PO March 25, 2022 12:00am mupirocin 0.02 mg/mg topical ointment (5 sources) RNA Synthetase Inhibitor Antibacterial Start: 05-01-2024 End: 05-11-2024 mupirocin (BACTROBAN) 2 % ointment Apply to affected area three times a day for 10 days. 30 g 05/01/2024 05/11/2024 Active Start: 05-01-2024 End: 05-01-2024 mupirocin (BACTROBAN) 2 % oi ntment Apply to affected area three times a day for 10 days. 15 g 05/01/2024 05/01/2024 Discontinued Start: 10-12-2022 End: 10-22-2022 mupirocin (BACTROBAN) 2 % oi ntment Apply to affected area three times daily for 10 days. 15 g 0 10/12/2022 10/22/2022 Active Comment on above: Apply to affected ar ea three times daily for 10 days. nitroglycerin 0.4 mg sublingual tablet (20 sources) Nitrate Vasodilator Start: 04-18-2022 Nitroglycerin 0.4 mg tablet, sublingual Active 0.4 mg SL DIRECTED as needed for Chest Pain September 02, 2022 1:00am PLACE 1 TABLET UNDER TONGUE EVERY 5 MINS, UP TO 3 DOSES NEEDED FOR CHEST PAIN Start: 03-25-2022 Nitroglycerin Active 0.4 MG SL Q5M March 24, 2022 11:00pm do not exceed 3 doses per episode Start: 12-01-2021 nitroglycerin 0.4 mg sublingual tablet 0.4 mg Dose = 1 tab(s), Sublingual, q5min, PRN Chest pain, # 100 tab(s), 2 Refill(s), Pharmacy: [facility]/pharmacy #[id number], 177.8, cm, 11/29/21 16:55:00 EDT, Height Start Date: 12/01/21 Status: Ordered Comment on above: Dissolve 1 tablet un miesha the tongue every 5 minutes as needed for chest pain. [place] 6-Fkh-Jmx-Fish Oil (2 sources) Start: 09-01-2023 [place] 6-Xyg-Mnr-Fish Oil Active CAP PO September 01, 2023 1:00am Start: 09-01-2023 [place] 3-Dha-Ep a-Fish Oil Active CAP PO September 01, 2023 12:00am [place] 2-Efm-Dvt-Fish Oil 100-400-1,000 mg capsule (7 sources) Start: 09-01-2023 take 100-400 capsules by mouth once daily as needed [place] 9-Tce-Mwx-Fish Oil 100-400-1,000 mg capsule Active 1 NMA PO DAILY as needed for supplement September 01, 2023 1:00am Start: 09-01-2023 [place] 3-Dha-Ep a-Fish Oil 100-400-1,000 mg capsule Active NMA PO September 01, 2023 1:00am pravastatin sodium 40 mg oral tablet (4 sources) HMG-CoA Reductase Inhibitor Start: 05-30-2013 take 40 mg by mouth once daily Pravastatin Active 40 MG PO DAILY May 30, 2013 12:00am predniSONE 20 mg oral tablet (16 sources) Start: 12-30-2024 take 2 tablets by mouth once daily Prednisone 20 mg tablet Active 40 mg PO DAILY 10 0 December 30, 2024 12:00am Start: 07-18-2024 End: 09-19-2024 take 3 tablets by mouth once daily Prednisone 20 mg tablet Discontinued 60 mg PO DAILY 15 July 18, 2024 1:00am September 19, 2024 3:07pm Start: 03-29-2024 End: 04-15-2024 take 2 tablets by mouth once daily Prednisone 20 mg tablet Discontinued 40 mg PO DAILY 14 0 March 29, 2024 12:00am April 15, 2024 11:11am 12 hr ranolazine 500 mg extended release oral tablet (1 source) Anti-anginal Start: 01-27-2022 ranolazine 500 mg oral tablet, extended release Dose : 500 mg = 1 tab(s), Oral, BID, # 60 tab(s), 5 Refill(s), Pharmacy: [facility]/pharmacy #[id number], 177.8, cm, 01/27/22 6:11:00 EDT, Height, kg, 01/27/22 6:11:00 EDT, Dosing Weight Start Date: 01/27/22 Status: Ordered Vitamin B Complex (20 sources) take 1 tablet by mouth once daily VITAMIN B COMPLEX (B COMPLEX 1 ORAL) Take 1 tablet by mouth once daily. Active VITAMIN B COMPLE X (B COMPLEX 1 ORAL) Take by mouth. Active VITAMIN B COMPLE X (B COMPLEX 1 ORAL) Take by mouth. 0 Active Comment on above: Take by mouth. Vitamin B Complex (B Complex-Vitamin B12) tablet (9 sources) Start: 09-01-2023 Vitamin B Comp anne (B Complex-Vitamin B12) tablet Active 1 {tbl} PO DAILY September 01, 2023 1:00am feet Start: 09-01-2023 Vitamin B Comp anne (B Complex-Vitamin B12) tablet Active 1 {tbl} PO DAILY September 01, 2023 1:00am Start: 09-01-2023 take 1 tablet by alison th once daily Vitamin B Complex (B Complex-Vitamin B12) tablet Active 1 TABLET PO DAILY September 01, 2023 1:00am Start: 09-01-2023 take 1 tablet by alison once daily Vitamin B Complex (B Complex-Vitamin B12) tablet Active 1 TABLET PO DAILY September 01, 2023 12:00am Vitamin B Complex oral table t (2 sources) Start: 11-30-2021 Vitamin B Comp anne oral tablet Dose = 1 tab(s), Oral, 0 Refill(s) Start Date: 11/30/21 Status: Ordered Completed/Discontinued Medications Medication Drug Class(es) Dates Sig (Normalized) Sig (Original) atenolol 50 mg oral tablet (20 sources) beta-Adrenergic Iban Start: 12-01-2021 End: 09-19-2024 take 1 tablet by mouth once daily Atenolol 50 mg Tablet Discontinued 50 mg PO DAILY March 25, 2022 12:00am September 19, 2024 3:08pm HEART Start: 11-29-2021 atenolol 25 mg oral tablet Dose : 50 mg = 2 tab(s), Oral, qDay, # 60 tab(s), 0 Refill(s) Start Date: 11/29/21 Status: Ordered Start: 11-29-2021 atenolol Oral, qDay, 0 Refill(s) Start Date: 11/29/21 Status: Ordered Start: 09-27-2021 take 2 tablets by [facility] once daily atenolol (TENORMIN) 50 mg tablet Take 2 tablets by mouth once daily. 180 tablet 1 09/27/2021 Active Start: 05-30-2013 take 1 mg by mouth once daily Atenolol Active MG PO DAILY May 30, 2013 12:00am Comment on above: Take 2 tablets by [facility] once daily. [facility] BD ASSURE BPM-AUTO ARM CUFF (1 source) Start: 10-29-2014 BD ASSURE BPM-AUTO ARM CUFF Indications: Essential hypertension, benign Use as directed 1 Device 0 10/29/2014 Active Comment on above: Use as directed biotin 10 mg oral capsule (1 source) Biotin 10,000 mc g cap Take by mouth. 0 Active Comment on above: Take by mouth. Blood Pressure Cuff - Home Use (20 sources) Start: 12-18-2014 End: 04-04-2024 Blood Pressure Cuff - Home Use BLOOD PRESSURE CUFF FOR HOME USE. DX: LABILE BLOOD PRESSURE 1 Units 0 12/18/2014 04/04/2024 Discontinued Start: 12-18-2014 Blood Pressure Cuff - Home Use BLOOD PRESSURE CUFF FOR HOME USE. DX: LABILE BLOOD PRESSURE 1 Units 0 12/18/2014 Active Comment on above: BLOOD PRESSURE CUFF FOR HOME USE. DX: LABILE BLOOD PRESSURE clopidogrel 75 mg oral tablet (20 sources) [id number] Platelet Inhibitor Start: 2 End: 3 take 1 tablet by mouth once daily Clopidogrel 75 mg Tablet Discontinued 75 mg PO DAILY March 25, 2022 12:00am December 09, 2022 11:04am BLOOD THINNER On Hold: Resume on 09/16/22. Start: 12-28-2021 Plavix 75 mg o ral tablet Dose : 75 mg = 1 tab(s), Oral, qDay, # 30 tab(s), 3 Refill(s), Pharmacy: [facility]/pharmacy #[id number], 175.3, cm, 12/28/21 11:24:00 EDT, Height Start Date: 12/28/21 Status: Ordered Comment on above: Take 1 tablet by alison once daily. diphenhydrAMINE hydrochloride 25 mg oral tablet (20 sources) Histamine-1 Receptor Antagonist Start: 09-01-19 End: 09-19-19 take 1 tablet by mouth at bedtime as needed Diphenhydramine Hcl (Allergy (Diphenhydramine)) 25 mg tablet Discontinued 25 mg PO AT BEDTIME as needed September 01, 2023 1:00am September 19, 2024 3:07pm Start: 03-25-2022 take 1 capsule by mo [facility] at bedtime Diphenhydramine Hcl (Benadryl) 25 mg Capsule Active 25 MG PO AT BEDTIME March 24, 2022 11:00pm Start: 11-30-2021 Benadryl 25 mg oral tablet Dose : 25 mg = 1 tab(s), Oral, q6h, PRN for allergy symptoms, # 30 tab(s), 0 Refill(s) Start Date: 11/30/21 Status: Ordered Comment on above: Take 25 mg by mouth every 6 hours as needed. famotidine 20 mg oral tablet (14 sources) Histamine-2 Receptor Antagonist Start: 4 End: 5 take 1 tablet by mouth twice daily Famotidine (Pepcid) 20 mg tablet Discontinued 20 mg PO TWICE A DAY 10 0 July 18, 2024 1:00am September 19, 2024 3:20pm Start: 03-29-2024 End: 04-15-2024 take 1 tablet by mouth once daily Famotidine (Pepcid) 20 mg tablet Discontinued 20 mg PO DAILY 7 0 March 29, 2024 12:00am April 15, 2024 11:11am ferrous sulfate 325 mg oral tablet (20 sources) Start: 09-09-2022 End: 01-05-2023 Ferrous Sulfate (Ferosul) 32 5 mg (65 mg iron) Tablet Discontinued 325 mg PO 1200,1700 60 30 0 September 09, 2022 1:00am January 05, 2023 1:42pm End: 01-06-2023 ferrous sulfate 325 mg (65 m g iron) EC tablet Take 325 mg by mouth. 0 01/06/2023 Discontinued (Discontinued by another Health Care Provider) Comment on above: Take 325 mg by mouth . FLUoxetine 40 mg oral capsule (20 sources) Serotonin Reuptake Inhibitor Start: 5 End: 5 take 1 capsule by mouth once daily Fluoxetine 40 mg capsule Discontinued 40 mg PO daily September 19, 2024 1:00am December 30, 2024 8:59am mood furosemide 40 mg oral tablet (9 sources) Loop Diuretic Start: 4 End: 4 take 1 tablet by mouth once daily Furosemide (Lasix) 40 mg tablet Discontinued 40 mg PO DAILY 5 0 September 06, 2023 1:00am April 15, 2024 11:11am losartan potassium 50 mg oral tablet (20 sources) Angiotensin 2 Receptor Iban Start: 3 End: 4 take 1 tablet by mouth once daily losartan (COZAAR) 50 mg tablet Take 1 tablet by mouth once daily. 90 tablet 1 09/25/2023 04/04/2024 Discontinued Start: 01-05-2023 End: 04-15-2024 take 1 tablet by mouth once daily Losartan 25 mg tablet Discontinued 25 mg PO DAILY January 05, 2023 12:00am April 15, 2024 11:08am Comment on above: Take 1 tablet by alison once daily. naproxen sodium 220 mg oral tablet (1 source) Nonsteroidal Anti-inflammatory Drug take 1 tablet by mouth twice daily at mealtime naproxen sodium (MIDOL, NAPROXEN,) 220 mg tablet Take 220 mg by mouth twice daily with meals. 0 Active Comment on above: Take 220 mg by mouth twice daily with meals. ofloxacin 3 mg/ml ophthalmic solution (12 sources) Quinolone Antimicrobial Start: 09-02-19 End: 12-10-19 Ofloxacin 0.3 % drops Discontinued 1 NMA EACH EYE 4 TIMES DAILY September 02, 2022 1:00am December 09, 2022 11:04am SURGERY Instill 1 drop into right eye four times a day Use QID in operative eye 3 days prior to surgery and QID after surgery Start: 09-02-2022 End: 12-09-2022 Ofloxacin Discontinued 1 DRP EACH EYE 4 TIMES DAILY September 02, 2022 1:00am December 09, 2022 11:04am Instill 1 drop into right eye four times a day Use QID in operative eye 3 days prior to surgery and QID after surgery pantoprazole 40 mg delayed release oral tablet (20 sources) Proton Pump Inhibitor Start: 09-09-2022 End: 04-20-2023 take 1 tablet by mouth twice daily Pantoprazole 40 mg Tablet,Delayed Release (Dr/Ec) Discontinued 40 mg PO TWICE A DAY 60 30 0 September 09, 2022 1:00am December 09, 2022 11:05am Comment on above: Take 40 mg by mouth twice daily. Take twice daily Take 1 tablet by alison twice daily. Take twice daily sertraline 100 mg oral tablet (20 sources) Serotonin Reuptake Inhibitor Start: 04-20-2023 End: 09-19-2024 take 1 tablet by mouth once daily Sertraline 100 mg tablet Discontinued 100 mg PO daily June 04, 2024 1:00am September 19, 2024 3:07pm Start: 09-14-2022 End: 11-12-2024 take 1 tablet by mouth once daily Sertraline 50 mg tablet Discontinued 50 mg PO DAILY 2022 12:00am June 04, 2024 8:10am Comment on above: 1/2 a tablet by mout h once a day for 14 days then go to one tablet daily Take 1 tablet by alison th once daily. 1/2 a tablet by mouth once a day for 14 days then go to one tablet daily Take one tablet by m outh daily spironolactone 25 mg oral tablet (7 sources) Aldosterone Antagonist Start: 09-19-2024 End: 11-05-2024 Spironolactone 25 mg tablet Discontinued 12.5 mg PO DAILY 2 September 19, 2024 1:00am November 05, 2024 1:05pm Hold for serum potassium more than 5.0 ticagrelor 90 mg oral tablet (5 sources) Start: 12-06-2021 End: 04-18-2022 ticagrelor (BRILINTA) 90 mg tablet Take 1 tablet by mouth twice daily. Per CardioDr. Edwards 0 12/06/2021 04/18/2022 Discontinued Start: 12-01-2021 ticagrelor 90 mg oral tablet Dose : 90 mg = 1 tab(s), Oral, q12h, # 60 tab(s), 6 Refill(s), Pharmacy: [facility]/pharmacy #[id number], 177.8, cm, 11/29/21 16:55:00 EDT, Height Start Date: 12/01/21 Status: Ordered Comment on above: Take 1 tablet by alison th twice daily. Per CardioDr. Edwards Problems Active Problems Problem Classification Problem Date Documented Da te Episodic/Chronic Acute and unspecified renal failure (14 sources) Injury of kidney; Translations: [Acute kidney failure, unspecified] 09-02-2022 Episodic Acute myocardial infarction (20 sources) ST elevation (STEMI) myocardial infarction of unspecified site; Translations: [Myocardial infarction] Onset: 2 Resolved: 3 Chronic Acute posthemorrhagic anemia (13 sources) Acute posthemorrhagic anemia; Translations: [Acute posthemorrhagic anemia] 09-02-2022 Episodic Adjustment disorders (20 sources) Reactive depression (situational); Translations: [Adjustment disorder with depressed mood] Onset: 3 Chronic Alcohol-related disorders (20 sources) Alcohol abuse; Translations: [Alcohol abuse, uncomplicated] Onset: 3 Chronic Anxiety disorders (20 sources) Anxiety; Translations: [Anxiety disorder, unspecified] Onset: 5 03-15-2021 Chronic Aortic; peripheral; and visceral artery aneurysms (9 sources) Aortic root dilatation; Translations: [Thoracic aortic ectasia] 09-05-2023 Chronic Calculus of urinary tract (16 sources) Kidney stone; Translations: [Calculus of kidney] Onset: 5 10-17-2023 Episodic Cardiac dysrhythmias (3 sources) Unspecified atrial fibrillation; Translations: [Junctional escape beats] Onset: 2 Chronic Complications of surgical procedures or medical care (6 sources) Drug-induced hypotension; Translations: [Hypotension due to drugs] 12-27-2024 Episodic Conditions associated with dizziness or vertigo (11 sources) Dizziness; Translations: [Dizziness and giddiness] 09-05-2023 Episodic Coronary atherosclerosis and other heart disease (20 sources) Coronary atherosclerosis; Translations: [Atherosclerotic heart disease of [place] coronary artery without angina pectoris] Onset: 2 Chronic Deficiency and other anemia (2 sources) Anemia; Translations: [Anemia, unspecified] Episodic Diseases of white blood cells (20 sources) Leukocytosis; Translations: [Elevated white blood cell count, unspecified] Onset: 5 09-02-2022 Chronic Disorders of lipid metabolism (20 sources) Hyperlipidemia; Translations: [Hyperlipidemia, unspecified] Onset: 1 Chronic Diverticulosis and diverticulitis (20 sources) Diverticular disease; Translations: [Diverticulosis of intestine, part unspecified, without perforation or abscess without bleeding] Onset: 3 Chronic Essential hypertension (20 sources) Essential hypertension; Translations: [Essential (primary) hypertension] Onset: 8 Chronic Gastrointestinal hemorrhage (3 sources) Lower gastrointestinal hemorrhage; Translations: [Gastrointestinal hemorrhage, unspecified] Episodic Gout and other crystal arthropathies (20 sources) Gout, unspecified; Translations: [Gout] Onset: 1 Chronic Neoplasms of unspecified nature or uncertain behavior (5 sources) Monoclonal gammopathy (clinical); Translations: [Monoclonal gammopathy] Onset: 5 09-27-2024 Chronic Nonspecific chest pain (14 sources) Chest pain; Translations: [Chest pain, unspecified] Episodic Occlusion or stenosis of precerebral arteries (4 sources) Carotid artery occlusion; Translations: [Occlusion and stenosis of unspecified carotid artery] Onset: 4 02-07-2024 Chronic Other aftercare (1 source) Post-discharge follow-up; Translations: [Encounter for follow-up examination after completed treatment for conditions other than malignant neoplasm] 01-01-2025 Episodic Other circulatory disease (4 sources) H/O: hypertension; Translations: [Personal history of other diseases of the circulatory system] 09-02-2022 Episodic Other circulatory disease (1 source) Personal history of other diseases of the circulatory system; Translations: [Personal history of other diseases of circulatory system] 09-10-2022 Episodic Other circulatory disease (4 sources) H/O: heart disorder; Translations: [Personal history of other diseases of the circulatory system] 01-01-2024 Episodic Other connective tissue disease (3 sources) Neurological symptom; Translations: [Other symptoms and signs involving the nervous system] 01-01-2024 Episodic Other diseases of kidney and ureters (2 sources) Disorder of kidney and/or ureter; Translations: [Other specified disorders of kidney and ureter] 08-21-2023 Chronic Other diseases of kidney and ureters (1 source) Hydronephrosis; Translations: [Unspecified hydronephrosis] 10-17-2023 Episodic Other ear and sense organ disorders (1 source) Excessive cerumen in ear canal ; Translations: [Impacted cerumen, right ear] 04-20-2023 Episodic Other gastrointestinal disorders (12 sources) Hemorrhagic diarrhea ; Translations: [Diarrhea, unspecified] 09-02-2022 Episodic Other gastrointestinal disorders (1 source) Diarrhea, unspecified; Translations: [Diarrhea] 09-10-2022 Episodic Other gastrointestinal disorders (16 sources) History of lower gastrointestinal bleed; Translations: [Personal history of other diseases of the digestive system] 01-05-2023 Episodic Other gastrointestinal disorders (3 sources) Dysphagia; Translations: [Dysphagia, unspecified] 12-27-2024 Episodic Other gastrointestinal disorders (1 source) History of gastrointestinal bleed; Translations: [Personal history of other diseases of the digestive system] 01-23-2025 Episodic Other hematologic conditions (2 sources) Protein electrophoresis abnormal; Translations: [Other specified abnormalities of plasma proteins] 08-30-2024 Episodic Other injuries and conditions due to external causes (20 sources) Angioedema; Translations: [Angioneurotic edema, subsequent encounter] 07-31-2024 Episodic Other injuries and conditions due to external causes (1 source) Angioneurotic edema, initial encounter; Translations: [Angioneurotic edema, initial encounter] Onset: 5 Episodic Other liver diseases (20 sources) Hepatic fibrosis; Translations: [Liver fibrosis] Onset: 4 05-15-2024 Chronic Other lower respiratory disease (9 sources) Dyspnea; Translations: [Shortness of breath] 09-05-2023 Episodic Other lower respiratory disease (2 sources) Shortness of breath; Translations: [Shortness of breath] 09-05-2023 Episodic Other nervous system disorders (14 sources) Neuropathy; Translations: [Polyneuropathy, unspecified] 09-01-2023 Chronic Other nervous system disorders (4 sources) Polyneuropathy, unspecified; Translations: [Mononeuritis of unspecified site] Onset: 5 09-01-2023 Chronic Other nervous system disorders (1 source) Polyneuropathy; Translations: [Polyneuropathy, unspecified] 12-23-2024 Chronic Other nervous system disorders (1 source) Hereditary and idiopathic neuropathy, unspecified; Translations: [Neuropathy, idiopathic] Onset: 5 Chronic Other nervous system disorders (1 source) Paresthesia of foot ; Translations: [Anesthesia of skin] 04-20-2023 Episodic Other nervous system disorders (2 sources) Abnormal gait; Translations: [Unspecified abnormalities of gait and mobility] 01-01-2024 Episodic Other nervous system disorders (2 sources) Numbness; Translations: [Anesthesia of skin] 01-01-2024 Episodic Other nutritional; endocrine; and metabolic disorders (1 source) Hypercalcemia; Translations: [Hypercalcemia] 09-27-2024 Chronic Other nutritional; endocrine; and metabolic disorders (1 source) Hypercalcemia; Translations: [Hypercalcemia] Onset: 5 Chronic Other nutritional; endocrine; and metabolic disorders (1 source) Overweight in adulthood with body mass index of 25 or more but less than 30; Translations: [Overweight] 05-01-2024 Episodic Other skin disorders (8 sources) Tongue swelling; Translations: [Localized swelling, mass and lump, head] 03-29-2024 Episodic Other upper respiratory disease (3 sources) Expiratory stridor; Translations: [Stridor] 12-27-2024 Episodic Other upper respiratory disease (3 sources) Dysphonia; Translations: [Dysphonia] 12-27-2024 Episodic Dionne-; endo-; and myocarditis; cardiomyopathy (except that caused by tuberculosis or sexually transmitted disease) (20 sources) Heart valve disorder; Translations: [Endocarditis, valve unspecified] Onset: 3 05-18-2023 Chronic Residual codes; unclassified (1 source) Beer drinker; Translations: [Other specified health status] 12-23-2024 Episodic Residual codes; unclassified (1 source) Other specified health status; Translations: [Drinks beer] Onset: 5 Episodic Respiratory failure; insufficiency; arrest (adult) (8 sources) Acute respiratory failure; Translations: [Acute respiratory failure, unspecified whether with hypoxia or hypercapnia] Onset: 5 12-27-2024 Episodic Spondylosis; intervertebral disc disorders; other back problems (11 sources) Degeneration of lumbar intervertebral disc; Translations: [Other intervertebral disc degeneration, lumbar region] 09-01-2023 Chronic Spondylosis; intervertebral disc disorders; other back problems (20 sources) Lumbosacral radiculopathy; Translations: [Radiculopathy, lumbosacral region] Onset: 3 07-10-2023 Episodic Unclassified (1 source) Patient encounter status 11-01-2024 Unclassified (2 sources) Please call [phone] to schedule the follow up appt. Unclassified (1 source) Liver fibrosis; Translations: [Liver fibrosis] Onset: 4 Unclassified (1 source) Eosinophilia, unspecified; Translations: [Eosinophilia, unspecified] Onset: 5 Past or Other Problems Problem Classification Problem Date Documented Da te Episodic/Chronic Administrative/social admission (20 sources) Advance directive discussed with patient; Translations: [Other specified counseling] Onset: 04-18-2022 Episodic Allergic reactions (1 source) Allergy, unspecified, initial encounter; Translations: [Allergy, unspecified, initial encounter] Onset: 08-13-2024 Episodic Diabetes mellitus without complication (20 sources) Impaired fasting glycemia; Translations: [Impaired fasting glucose] Onset: 09-03-2017 Resolved: 08-01-2018 08-01-2018 Episodic Heart valve disorders (20 sources) Systolic murmur; Translations: [Cardiac murmur, unspecified] Onset: 08-01-2018 03-15-2021 Episodic Immunizations and screening for infectious disease (5 sources) Vaccination needed; Translations: [Encounter for immunization] Onset: 08-30-2024 04-20-2023 Episodic Nutritional deficiencies (20 sources) Serum vitamin B12 low; Translations: [Deficiency of other specified B group vitamins] Onset: 05-18-2023 05-18-2023 Episodic Other aftercare (20 sources) Patient encounter status; Translations: [Other joint terminal attack controller (current) drug therapy] Onset: 03-15-2021 03-15-2021 Episodic Other aftercare (1 source) Other joint terminal attack controller (current) drug therapy; Translations: [Medication management] Onset: 03-15-2021 Episodic Other connective tissue disease (20 sources) Atrophy of muscle of right shoulder; Translations: [Muscle wasting and atrophy, not elsewhere classified, right shoulder] Onset: 04-20-2023 04-20-2023 Episodic Other connective tissue disease (20 sources) Muscle atrophy; Translations: [Muscle wasting and atrophy, not elsewhere classified, other site] Onset: 04-20-2023 04-20-2023 Episodic Other connective tissue disease (1 source) Other symptoms and signs involving the nervous system; Translations: [Other symptoms and signs involving the nervous system] Onset: 02-06-2024 Episodic Other diseases of kidney and ureters (20 sources) Kidney lesion; Translations: [Disorder of kidney and ureter, unspecified] Onset: 08-21-2023 08-21-2023 Episodic Other gastrointestinal disorders (20 sources) Arteriovenous malformation of large intestine; Translations: [Angiodysplasia of colon without hemorrhage] Onset: 09-14-2022 Episodic Other gastrointestinal disorders (20 sources) Occult blood in stools; Translations: [Other fecal abnormalities] Onset: 01-19-2016 Resolved: 08-01-2018 08-01-2018 Episodic Other hematologic conditions (1 source) Other specified abnormalities of plasma proteins; Translations: [Abnormal SPEP] Onset: 08-30-2024 Episodic Other inflammatory condition of skin (20 sources) Prurigo nodularis; 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] Onset: 03-15-2021 03-15-2021 Episodic Other inflammatory condition of skin (20 sources) Inflammatory dermatosis; Translations: [Lichen simplex chronicus] Onset: 07-12-2011 Resolved: 08-01-2018 08-01-2018 Episodic Other injuries and conditions due to external causes (1 source) Angioneurotic edema, subsequent encounter; Translations: [Angioedema, subsequent encounter] Onset: 08-19-2024 Episodic Other liver diseases (20 sources) Alkaline phosphatase raised; Translations: [Abnormal levels of other serum enzymes] Onset: 09-03-2017 03-15-2021 Episodic Other male genital disorders (20 sources) Disorder of prostate; Translations: [Disorder of prostate, unspecified] Onset: 03-15-2021 03-15-2021 Episodic Other male genital disorders (1 source) Disorder of prostate, unspecified; Translations: [Prostate disorder] Onset: 03-15-2021 Episodic Other nervous system disorders (20 sources) Impairment of balance; Translations: [Other abnormalities of gait and mobility] Onset: 04-20-2023 04-20-2023 Episodic Other nervous system disorders (1 source) Unspecified abnormalities of gait and mobility; Translations: [Abnormality of gait] Onset: 08-30-2024 Episodic Other nervous system disorders (1 source) Anesthesia of skin; Translations: [Numbness] Onset: 08-30-2024 Episodic Other nutritional; endocrine; and metabolic disorders (20 sources) Hyperuricemia; Translations: [Hyperuricemia without signs of inflammatory arthritis and tophaceous disease] Onset: 10-30-2014 Resolved: 08-12-2019 08-12-2019 Episodic Other screening for suspected conditions (not mental disorders or infectious disease) (20 sources) Decreased vitamin D; Translations: [Other specified abnormal findings of blood chemistry] Onset: 07-21-2018 Resolved: 08-12-2019 03-15-2021 Episodic Residual codes; unclassified (20 sources) Active living will ; Translations: [Other specified health status] Onset: 04-18-2022 Episodic Superficial injury; contusion (20 sources) Abrasion of ear region; Translations: [Abrasion of left ear, initial encounter] Onset: 08-28-2017 Resolved: 08-12-2019 08-12-2019 Episodic Results Test Name Value Interpretation Reference Range Facility Absolute lymphocyte countOrd ered By: ED PROVIDER on 01-23-2025 Lymphocytes Auto (Unsp spec) [#/Vol] 0.86 10*3/uL 0.83-4.51 [facility] Absolute neutrophil countOrd ered By: ED PROVIDER on 01-23-2025 Neutrophils (Bld) [#/Vol] 3.1 10*3/uL 2.0-7.7 [facility] Anion gap in Serum or Plasma Ordered By: ED PROVIDER on 01-23-2025 Anion gap [Moles/Vol] 13 mmol/L 5-15 [facility] Automated lymphocyte count a s percentage of total leukocytesOrdered By: ED PROVIDER on 01-23-2025 Lymphocytes/100 WBC Auto (Unsp spec) 16.0 % Low 19-41 [facility] BUN/creatinine ratioOrdered By: ED PROVIDER on 01-23-2025 Urea nitrogen/Creatinine [Mass ratio] 15.1 mg/mg 10-20 [facility] Basophil percentageOrdered B y: ED PROVIDER on 01-23-2025 Basophils/100 WBC (Bld) 0.7 % 0-1 [facility] Bilirubin Test strip Ql (U)O rdered By: Jae Mcclure on 01-23-2025 Bilirubin Ql (U) Negative Negative [facility] Bilirubin, totalOrdered By: ED PROVIDER on 01-23-2025 Bilirubin [Mass/Vol] 0.74 mg/dL 0.00-1.30 [facility] Carbon dioxide, total [Moles /volume] in Central venous bloodOrdered By: ED PROVIDER on 01-23-2025 CO2 [Moles/Vol] 19.9 mmol/L Low 21.0-32.0 [facility] Chloride assayOrdered By: ED PROVIDER on 01-23-2025 Chloride [Moles/Vol] 107 mmol/L 98-108 [facility] Eosinophil percentageOrdered By: ED PROVIDER on 01-23-2025 Eosinophils/100 WBC (Bld) 10.6 % High 0-5 [facility] Erythrocyte distribution wid th ratioOrdered By: ED PROVIDER on 01-23-2025 Erythrocyte distribution width (RBC) [Ratio] 13.8 % 11.6-14.6 [facility] Erythrocyte distribution wid th standard deviationOrdered By: ED PROVIDER on 01-23-2025 Erythrocyte distribution width (RBC) [Ratio] 53.4 fl High 35.1-43.9 [facility] Glomerular filtration rate ( GFR) estimation/1.73 sq m using serum, plasma, or whole bOrdered By: ED PROVIDER on 01-23-2025 GFR/1.73 sq M.predicted among non-blacks MDRD (S/P/Bld) [Vol rate/Area] 92 mL/min/{1.73_m2} >60 [facility] Comment on above: mL/min/1.73m2 CKD-EP I Creatinine Equation (2020) Hematocrit Auto (Bld) [Volum e fraction]Ordered By: ED PROVIDER on 01-23-2025 Hematocrit (Bld) [Volume fraction] 31.0 % Low 40-54 [facility] Hemoglobin measurementOrdere d By: ED PROVIDER on 01-23-2025 Hemoglobin (Bld) [Mass/Vol] 10.5 g/dL Low 13.0-16.5 [facility] Immature granulocytes/100 WB C Auto (Bld)Ordered By: ED PROVIDER on 01-23-2025 Immature granulocytes/100 WBC (Bld) 0.700 % 0.0-0.9 [facility] Comment on above: IG% - Immature Granu locytes (promyelocytes, myelocytes and metamyelocytes) > 1% indicates that a LEFT SHIFT is Present. Ketones Test strip Ql (U)Ord ered By: Jae Mcclure on 01-23-2025 Ketones Ql (U) Negative Negative [facility] - Chemistry and C hemistry - challengeOrdered By: ED PROVIDER on 01-23-2025 AST [Catalytic activity/Vol] 35 U/L <38 [facility] Lipase measurementOrdered By : ED PROVIDER on 01-23-2025 Lipase [Catalytic activity/Vol] 39 U/L 13-75 [facility] Comment on above: Please note:LIPASE r evised reference range effective 22. New Lipase methodology. Expected to produce lower values than the previous assay method. NEW Reference Range: 13 - 75 U/L MCV (mean corpuscular volume ) determinationOrdered By: ED PROVIDER on 01-23-2025 MCV (RBC) [Entitic vol] 106.2 fL High 80-94 [facility] Mean corpuscular hemoglobin (MCH) determinationOrdered By: ED PROVIDER on 01-23-2025 MCH (RBC) [Entitic mass] 36.0 pg High 27.0-32.0 [facility] Mean corpuscular hemoglobin concentration (MCHC) determinationOrdered By: ED PROVIDER on 01-23-2025 MCHC (RBC) [Mass/Vol] 33.9 g/dL 32-36 [facility] Mean platelet volume determi nationOrdered By: ED PROVIDER on 01-23-2025 Platelet mean volume (Bld) [Entitic vol] 9.5 fL 6.2-12.0 [facility] Microscopic analysis of urin e for red blood cells (RBC)Ordered By: Jae Mcclure on 01-23-2025 Microscopic analysis of urine for red blood cells (RBC) 0-5 SEEN /hpf 0-5 [facility] Monocyte percentageOrdered B y: ED PROVIDER on 01-23-2025 Monocytes/100 WBC (Bld) 13.7 % High 0-10 [facility] Mucus LM Ql (Urine sed)Order ed By: Jae Mcclure on 01-23-2025 Mucus Ql (Urine sed) 0 SEEN /hpf [facility] Neutrophil percentageOrdered By: ED PROVIDER on 01-23-2025 Neutrophils/100 WBC (Bld) 58.3 % 47-70 [facility] Nitrite Test strip Ql (U)Ord ered By: Jae Mcclure on 01-23-2025 Nitrite Ql (U) Negative Negative [facility] Nucleated red blood cell per centageOrdered By: ED PROVIDER on 01-23-2025 Nucleated RBC/100 WBC (Bld) [Ratio] 0 % 0-5 [facility] Platelet countOrdered By: ED PROVIDER on 01-23-2025 Platelets (Bld) [#/Vol] 167 10*3/uL 150-450 [facility] Potassium measurement (mass/ volume)Ordered By: ED PROVIDER on 01-23-2025 Potassium (Unsp spec) [Mass/Vol] 3.8 mmol/L 3.3-5.1 [facility] Protein Test strip Ql (U)Ord ered By: Jae Mcclure on 01-23-2025 Protein Ql (U) Negative Negative [facility] RBC Auto (Bld) [#/Vol]Ordere d By: ED PROVIDER on 01-23-2025 RBC (Bld) [#/Vol] 2.92 10*6/uL Low 4.6-6.2 [place] Serum creatinine measurement (mass/volume)Ordered By: ED PROVIDER on 01-23-2025 Creatinine [Mass/Vol] 0.82 mg/dL 0.70-1.20 [facility] Serum globulin measurementOr dered By: ED PROVIDER on 01-23-2025 Globulin (S) [Mass/Vol] 2.9 g/dL 2.2-4.2 [facility] Serum glucose measurement (m ass/volume)Ordered By: ED PROVIDER on 01-23-2025 Glucose [Mass/Vol] 100 mg/dL High 70-99 [facility] Serum or plasma alanine guevara otransferase (ALT) measurementOrdered By: ED PROVIDER on 01-23-2025 ALT [Catalytic activity/Vol] 30 U/L <47 [facility] Serum or plasma albumin reid urement (mass/volume)Ordered By: ED PROVIDER on 01-23-2025 Albumin [Mass/Vol] 3.8 g/dL 3.4-4.8 [facility] Serum or plasma albumin/glob ulin mass ratioOrdered By: ED PROVIDER on 01-23-2025 Albumin/Globulin [Mass ratio] 1.3 {ratio} 0.9-2.4 [facility] Serum or plasma alkaline adelfo sphatase measurementOrdered By: ED PROVIDER on 01-23-2025 ALP [Catalytic activity/Vol] 103 U/L 40-129 [facility] Serum or plasma calcium reid urement (mass/volume)Ordered By: ED PROVIDER on 01-23-2025 Calcium [Mass/Vol] 9.0 mg/dL 7.6-11.0 [facility] Serum or plasma urea nitroge n measurement (mass/volume)Ordered By: ED PROVIDER on 01-23-2025 Urea nitrogen [Mass/Vol] 12 mg/dL 4-19 [facility] Sodium levelOrdered By: ED P CARLOSVIDER on 01-23-2025 Sodium [Moles/Vol] 140 mmol/L 133-145 [facility] Squamous epithelial cells de tection in urine sediment by light microscopyOrdered By: Jae Mcclure on 01-23-2025 Epithelial cells.squamous LM Ql (Urine sed) 0-5 SEEN /hpf 0-5 [facility] Total proteinOrdered By: ED PROVIDER on 01-23-2025 Protein [Mass/Vol] 6.6 g/dL 5.9-8.4 [facility] Urine clarityOrdered By: Jett Mcclure on 01-23-2025 Clarity (U) Clear Clear [facility] Urine color determinationOrd ered By: Jae Mcclure on 01-23-2025 Color (U) Straw Yellow [facility] Urine glucose detectionOrder ed By: Jae Mcclure on 01-23-2025 Glucose Ql (U) Normal mg/dl Normal [facility] Urine leukocyte esterase det ection by dipstickOrdered By: Jae Mcclure on 01-23-2025 Leukocyte esterase Test strip Ql (U) 100 /ul High Negative [facility] Urine pHOrdered By: Jae boyle on 01-23-2025 pH (U) 6.0 [pH] 5.0 - 8.0 [facility] Urine sediment bacteria coun t by microscopy (number/high power field)Ordered By: Jae Mcclure on 01-23-2025 Bacteria LM.HPF (Urine sed) [#/Area] 0 /[HPF] None Seen [facility] Urine specific gravity measu rementOrdered By: Jae Mcclure on 01-23-2025 Specific gravity (U) [Rel density] 1.015 1.002-1.030 [facility] Urine urobilinogen measureme ntOrdered By: Jae Mcclure on 01-23-2025 Urobilinogen Ql (U) Normal mg/dl Normal [facility] White blood cell (WBC) count Ordered By: ED PROVIDER on 01-23-2025 WBC (Bld) [#/Vol] 5.4 10*3/uL 4.4-11.0 [facility] White blood cell countOrdere d By: Jae Mcclure on 01-23-2025 White blood cell count 10-25 SEEN /hpf 0-5 [facility] Culture, Blood (WB)on 2024 CUB No growth in 5 days. Normal [facility] Comment on above: Performed By: #### L 9000.0800 #### [facility] [address] [place], [address] Immunoglobulin Andrew 5 IMMUNOGLOB E QN 214 IU/mL Normal 6-495 [facility] Comment on above: Result Comment: Perf ormed at: [facility] [id number] Manager Global Communications: Zafar Browne MD, Phone: [phone] Performed By: #### L 3400.5105, L3200.1600, L503.7505, L509.7009 #### [facility] [address], [address] Tryptaseon 01-02-2025 TRYPTASE 6.8 ug/L Normal 2.2-13.2 [facility] Comment on above: Performed By: #### L 3400.5105, L3200.1600, [id number], L509.7007 #### [facility] [address] [place], [address] CNOVon 01-01-2025 CNOV Office Visit (FAMPWS ) -- NAZARIO HUTTON ([id number]) 1950 M Date Time Provider Department 01/01/25 9:40 AM SUZANNA DAWSON FAMPWS During your visit today, we recorded the following information about you: Temperature Pulse Respiration Blood pressure 97.8 degrees 72/minute 18/minute 122/80 Weight 97.5 kg Suzanna Dawson PA-C 01/01/2025 12:06 PM Signed Chief Complaint Patient presents with: Hospital F/U TCM Note: Patient discharged on 12/30/2024 Patients appointment is within 48 hours. EDMUND Hutton is a 74 year old male who presents here today for Hospital Discharge Follow up. He was admitted Monday and discharged Monday morning 12/30/24. He has picked up his epi pen from the pharmacy and is scheduled to see an Bilingual Manager on January 23. Prozac was discontinued by the hospitalist due to possible correlation with angioedema. Patient states he feels ok and is agreeable to waiting to get the correctional corporal's recommendations before attempting to initiate a new medication for depression. Patient with a PMHX of alcoholic cirrhosis, alcohol abuse, STEMI,NSTEMI, systolic heart murmur, diverticulosis, mixed hyperlipidemia Past medical history, appointments, medications, allergies reviewed. Previous Medical History PAST MEDICAL HISTORY Diagnosis Date Advance directive discussed with patient 04/18/2022 Discussed 03/2022 Alcohol abuse 09/14/2022 6 beers a day since passed in early 2021 Alcoholic cirrhosis (HCC) 06/05/[address] Francis Ash 12/08/2014 AVM (arteriovenous malformation) of colon 09/14/[address] Chacon BENIGN HYPERTENSION 03/04/2008 Coronary artery disease due to lipid rich plaque 12/06/[address] Edwards , cardio [place] Diverticulosis 09/05/2022 Elevated alkaline phosphatase level 09/03/2017 Elevated PSA 03/17/2021 Heart attack (HCC) 2021 Heart murmur, systolic 08/01/2018 High serum parathyroid hormone (PTH) 08/01/[address] elevation myocardial infarction (STEMI) 12/06/2021 Hyperuricemia 10/30/[address] 04/18/2022 DPA: Jae (son) Low serum vitamin B12 05/18/2023 Low vitamin D level 03/15/2021 Lumbosacral radiculopathy at L5 07/10/2023 Medicare annual wellness visit, subsequent 03/15/2021 Medicare Part B: Not able to find. 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 gabapentin (NEURONTIN) 300 mg capsule Take 2 capsules by mouth two times a day for 90 days. fexofenadine (MARII ALLERGY) 180 mg tablet Take 1 tablet by mouth once daily. carvedilol (COREG) 12.5 mg tablet Take 1 tablet by mouth two times a day with meals. allopurinol (ZYLOPRIM) 100 mg tablet TAKE 1 TABLET BY MOUTH ONCE DAILY. FOR GOUT. amLODIPine (NORVASC) 5 mg tablet Take 1 tablet by mouth once daily. ezetimibe (ZETIA) 10 mg tablet Take 1 tablet by mouth once daily. Blood Pressure Monitor 1 Each once daily. isosorbide mononitrate ER (IMDUR) 30 mg 24 hr tablet Take 1 tablet by mouth once daily. Per [facility] aspirin, enteric coated (ASPIRIN, ENTERIC COATED) 81 mg EC tablet Take 1 tablet by mouth once daily. multivitamin tablet Take 1 tablet by mouth once daily. nitroglycerin sublingual (NITROQUICK) 0.4 mg SL tablet Dissolve 1 tablet under the tongue every 5 minutes as needed for chest pain. docosahexaenoic acid/epa (FISH OIL ORAL) Take 1,000 mg by mouth once daily. cholecalciferol (VITAMIN D3) 5,000 (more content not included)... Normal [facility] C1 EST Inhibitor, Functional on 12-31-2024 C1 EST INH FUNC 102 Normal . [facility] Comment on above: Result Comment: Resu lt Units: %mean normal Abnormal <41 Equivocal 41 - 67 Normal >67 Performed at: - [address] [id number] Manager Global Communications: Zafar Browne MD, Phone: [phone] Performed By: #### L 3400.5105, L3200.1600, L503.8548, L509.7833 #### [facility] [address] [place], [place], [id number] Hepatitis Panel Acuteon 12-22 COMMENT Comment Normal . [facility] Comment on above: Result Comment: Not infected with HCV unless early or acute infection is suspected (which may be delayed in an immunocompromised individual), or other evidence exists to indicate HCV infection. Performed at: - [facility] [id number] Manager Global Communications: José Miguel Alba PhD, Phone: [phone] Performed By: #### L 9000.0800 #### [facility] [address] [place], [address] HEP B CORE,IgM Negative Normal Negative [facility] Comment on above: Performed By: #### L 9000.0800 #### [facility] [address] [place], [address] HEP B SURF AG Negative Normal Negative [facility] Comment on above: Performed By: #### L 9000.0800 #### [facility] [address] [place], [address] HEP C VIRUS AB Non-Reactive Normal Non Reactive [facility] Comment on above: Performed By: #### L 9000.0800 #### [facility] [address] [place], [address] HEPATITIS A-IgM Negative Normal Negative [facility] Comment on above: Result Comment: A ne gative anti-HAV IgM result suggests no recent or current HAV infection. Performed By: #### L 9000.0800 #### [facility] [address] [facility] [place], [address] Respiratory Cultureon 2024 RESPC see mar #3 Penicillin is the drug of choice for Beta Streptococcal infections. For Penicillin allergic patients, Erythromycin may be used. Microorganism Spec Cult Microorganism Spec Cult Staphylococcus aureus Amount Growth 3+ Streptococcus agalactiae (B) Amount Growth 2+ Streptococcus group F Amount Growth 3+ Staphylococcus aureus: REACTION cefOXitin Susc Islt NEG Doxycycline Islt YOVANY <=0.5 S Clindamycin Islt YOVANY 0.25 S Clindamycin.induced Susc Islt NEG Erythromycin Islt YOVANY >=8 R Gentamicin Islt YOVANY <=0.5 S Linezolid Islt YOVANY 2 S Moxifloxacin Islt YOVANY 2 S Oxacillin Susc Islt 1 S Tetracycline Islt YOVANY <=1 S TMP SMX Islt YOVANY <=10 S Vancomycin Islt YOVANY 1 S Streptococcus agalactiae (B): REACTION Ampicillin Islt YOVANY <=0.25 S cefTRIAXone Islt YOVANY <=0.12 S Clindamycin Islt YOVANY >=1 R Clindamycin.induced Susc Islt NEG Linezolid Islt YOVANY <=2 S Vancomycin Islt YOVANY 0.5 S Normal [facility] Comment on above: Performed By: #### L 500.2500, L100.0100 #### [facility] [address] [facility] [place], [place], [id number] Absolute lymphocyte countOrd ered By: Alexi Olivas on 12-30-2024 Lymphocytes Auto (Unsp spec) [#/Vol] 0.45 10*3/uL Low 0.83-4.51 [facility] Absolute neutrophil countOrd ered By: Alexi Olivas on 12-30-2024 Neutrophils (Bld) [#/Vol] 10.5 10*3/uL High 2.0-7.7 [facility] Anion gap in Serum or Plasma Ordered By: Alexi Olivas on 12-30-2024 Anion gap [Moles/Vol] 10 mmol/L 5-15 [facility] Automated lymphocyte count a s percentage of total leukocytesOrdered By: Alexi Olivas on 12-30-2024 Lymphocytes/100 WBC Auto (Unsp spec) 3.8 % Low 19-41 [facility] BUN/creatinine ratioOrdered By: Alexi Olivas on 12-30-2024 Urea nitrogen/Creatinine [Mass ratio] 29.0 mg/mg High 10-20 [facility] Basic Metabolic Profile (BMP )on 12-30-2024 BUN/CRE 29.0 RATIO High 10-20 [facility] Comment on above: Performed By: #### L 500.2500, L100.0100 #### [facility] [address] [place], [address] Calcium [Mass/Vol] 9.0 mg/dL Normal 7.6-11.0 [facility] Comment on above: Performed By: #### L 500.2500, L100.0100 #### [facility] [address] [place], [address] Chloride [Moles/Vol] 107 mmol/L Normal 98-108 [facility] Comment on above: Performed By: #### L 500.2500, L100.0100 #### [facility] [address] [place], [address] CO2 [Moles/Vol] 24.1 mmol/L Normal 21.0-32.0 [facility] Comment on above: Performed By: #### L 500.2500, L100.0100 #### [facility] [address] [place], [address] Creatinine [Mass/Vol] 0.70 mg/dL Normal 0.70-1.20 [facility] Comment on above: Performed By: #### L 500.2500, L100.0100 #### [facility] [address] [place], [address] ECRCL 94.14 ml/min Normal 50-250 [facility] Comment on above: Performed By: #### L 500.2500, L100.0100 #### [facility] [address] [place], [address] GAP 10 Normal 5-15 [facility] Comment on above: Performed By: #### L 500.2500, L100.0100 #### [facility] [address] [place], [address] GFR/1.73 sq M.predicted among non-blacks MDRD (S/P/Bld) [Vol rate/Area] 97 mL/min/{1.73_m2} Normal >60 [facility] Comment on above: Result Comment: mL/m in/1.73m2 CKD-EPI Creatinine Equation (2020) Performed By: #### L 500.2500, L100.0100 #### [facility] [address] [place], [address] Glucose [Mass/Vol] 125 mg/dL High 70-99 [facility] Comment on above: Performed By: #### L 500.2500, L100.0100 #### [facility] [address] [place], [address] Potassium [Moles/Vol] 4.0 mmol/L Normal 3.3-5.1 [facility] Comment on above: Performed By: #### L 500.2500, L100.0100 #### [facility] [address] [place], [address] Sodium [Moles/Vol] 141 mmol/L Normal 133-145 [facility] Comment on above: Performed By: #### L 500.2500, L100.0100 #### [facility] [address] [place], [address] Urea nitrogen [Mass/Vol] 20 mg/dL High 4-19 [facility] Comment on above: Performed By: #### L 500.2500, L100.0100 #### [facility] [address] [place], [address] Basophil percentageOrdered B y: Alexi Olivas on 12-30-2024 Basophils/100 WBC (Bld) 0.2 % 0-1 [facility] CBC W/Diff, Automatedon Absolute Lymph 0.45 X10 3/uL Low 0.83-4.51 [facility] Comment on above: Performed By: #### L 500.2500, L100.0100 #### [facility] [address] [place], [address] Absolute Neut 10.5 X10 3/uL High 2.0-7.7 [facility] Comment on above: Performed By: #### L 500.2500, L100.0100 #### [facility] [address] [place], [address] Basophils/100 WBC (Bld) 0.2 % Normal 0-1 [facility] Comment on above: Performed By: #### L 500.2500, L100.0100 #### [facility] [address] [place], [address] Eosinophils/100 WBC (Bld) 0.0 % Normal 0-5 [facility] Comment on above: Performed By: #### L 500.2500, L100.0100 #### [facility] [address] [place], [address] Erythrocyte distribution width (RBC) [Ratio] 13.7 % Normal 11.6-14.6 [facility] Comment on above: Performed By: #### L 500.2500, L100.0100 #### [facility] [address] [place], [address] Hematocrit (Bld) [Volume fraction] 40.2 % Normal 40-54 [facility] Comment on above: Performed By: #### L 500.2500, L100.0100 #### [facility] [address] [place], [address] Hemoglobin (Bld) [Mass/Vol] 13.5 g/dL Normal 13.0-16.5 [facility] Comment on above: Performed By: #### L 500.2500, L100.0100 #### [facility] [address] [place], [address] IG% 1.000 High 0.0-0.9 [facility] Comment on above: Result Comment: IG% - Immature Granulocytes (promyelocytes, myelocytes and metamyelocytes) > 1% indicates that a LEFT SHIFT is Present. Performed By: #### L 500.2500, L100.0100 #### [facility] [address] [place], [address] Lymphocytes/100 WBC (Bld) 3.8 % Low 19-41 [facility] Comment on above: Performed By: #### L 500.2500, L100.0100 #### [facility] [address] [place], [address] MCH (RBC) [Entitic mass] 35.9 pg High 27.0-32.0 [facility] Comment on above: Performed By: #### L 500.2500, L100.0100 #### [facility] [address] [place], [address] MCHC (RBC) [Mass/Vol] 33.6 g/dL Normal 32-36 [facility] Comment on above: Performed By: #### L 500.2500, L100.0100 #### [facility] [address] [place], [address] MCV (RBC) [Entitic vol] 106.9 fL High 80-94 [facility] Comment on above: Performed By: #### L 500.2500, L100.0100 #### [facility] [address] [place], [address] Monocytes/100 WBC (Bld) 6.4 % Normal 0-10 [facility] Comment on above: Performed By: #### L 500.2500, L100.0100 #### [facility] [address] [place], [address] Neutrophils/100 WBC (Bld) 88.6 % High 47-70 [facility] Comment on above: Performed By: #### L 500.2500, L100.0100 #### [facility] [address] [place], [address] Nucleated RBC (Bld) [#/Vol] 0 10*3/uL Normal 0-5 [facility] Comment on above: Performed By: #### L 500.2500, L100.0100 #### [facility] [address] [place], [address] Platelet mean volume (Bld) [Entitic vol] 9.8 fL Normal 6.2-12.0 [facility] Comment on above: Performed By: #### L 500.2500, L100.0100 #### [facility] [address] [place], [address] Platelets (Bld) [#/Vol] 185 10*3/uL Normal 150-450 [facility] Comment on above: Performed By: #### L 500.2500, L100.0100 #### [facility] [address] [place], [address] RBC (Bld) [#/Vol] 3.76 10*6/uL Low 4.6-6.2 [place] Comment on above: Performed By: #### L 500.2500, L100.0100 #### [facility] [address] [place], [address] RDW SD 54.1 fl High 35.1-43.9 [facility] Comment on above: Performed By: #### L 500.2500, L100.0100 #### [facility] [address], [address] WBC (Bld) [#/Vol] 11.8 10*3/uL High 4.4-11.0 [place] Comment on above: Performed By: #### L 500.2500, L100.0100 #### [facility] [address] [place], [address] Carbon dioxide, total [Moles /volume] in Central venous bloodOrdered By: Alexi Olivas on 12-30-2024 CO2 [Moles/Vol] 24.1 mmol/L 21.0-32.0 [facility] Chloride assayOrdered By: Domenico Olivas on 12-30-2024 Chloride [Moles/Vol] 107 mmol/L 98-108 [facility] Electrocardiogram reportOrde red By: Sabrina Arrington on 12-30-2024 EKG study [facility] [address] [place] [address] 12 Lead EKG 12/27/24 1414 MR#: [id number] Acct: [id number] Name: NAZARIO HUTTON Rep #:[id number] : 1950 74 From: Sabrina cuevas MD Attending Dr: Dr. Alexi Olivas, DO Status: ADM IN Ordering Dr: Marino Holguin MD Date: 12/27 Location: ICU Sex: M C Admitted: 12/27/24 Test Reason : Blood Pressure : */* mmHG Vent. Rate : 82 BPM Atrial Rate : 82 BPM P-R Int : 278 ms QRS Dur : 156 ms QT Int : 442 ms P-R-T Axes : 36 -43 120 degrees QTcB Int : 516 ms Sinus rhythm with 1st degree A-V block Left axis deviation Left bundle branch block Abnormal ECG Confirmed by HUGH LUNA, MORRIS ([id number]), content editor CAREY BAUER ([id number]) on12/30/2024 6:52:47 AM Referred By: Confirmed By: MORRIS ARRINGTON MD 12/30/24 0652 Date _ Sabrina Arrington MD CC: Dr. Alexi Olivas DO; Dr. Valeriano Beasley MD; Dr. Marino Holguin MD ~ Signed [facility] Other Phone: Eosinophil percentageOrdered By: Aelxi Olivas on 12-30-2024 Eosinophils/100 WBC (Bld) 0.0 % 0-5 [facility] Erythrocyte distribution wid th ratioOrdered By: Alexi Olivas on 12-30-2024 Erythrocyte distribution width (RBC) [Ratio] 13.7 % 11.6-14.6 [facility] Erythrocyte distribution wid th standard deviationOrdered By: Alexi Olivas on 12-30-2024 Erythrocyte distribution width (RBC) [Ratio] 54.1 fl High 35.1-43.9 [facility] Glomerular filtration rate ( GFR) estimation/1.73 sq m using serum, plasma, or whole bOrdered By: Alexi Olivas on 12-30-2024 GFR/1.73 sq M.predicted among non-blacks MDRD (S/P/Bld) [Vol rate/Area] 97 mL/min/{1.73_m2} >60 [facility] Comment on above: mL/min/1.73m2 CKD-EP I Creatinine Equation (2020) Gram Stainon 12-30-2024 GS see mar Acceptable Specimen? Yes (<25 Epithelial cells per/lpf) Gram Stain 3+ Gram positive cocci 2+ Gram positive rods 4+ White Blood Cells Normal [facility] Comment on above: Performed By: #### L 9000.0800 #### [facility] [address] [place], [address] GS Acceptable Specimen? Yes (<25 Epithelial cells per/lpf) Gram Stain 2+ Gram positive cocci 1+ Gram positive rods 3+ White Blood Cells Normal [facility] Comment on above: Performed By: #### L 500.2500, L100.0100 #### [facility] [address] [place], [address] Hematocrit Auto (Bld) [Volum e fraction]Ordered By: Alexi Olivas on 12-30-2024 Hematocrit (Bld) [Volume fraction] 40.2 % 40-54 [facility] Hemoglobin measurementOrdere d By: Alexi Olivas on 12-30-2024 Hemoglobin (Bld) [Mass/Vol] 13.5 g/dL 13.0-16.5 [facility] Immature granulocytes/100 WB C Auto (Bld)Ordered By: Alexi Olivas on 12-30-2024 Immature granulocytes/100 WBC (Bld) 1.000 % High 0.0-0.9 [facility] Comment on above: IG% - Immature Granu locytes (promyelocytes, myelocytes and metamyelocytes) > 1% indicates that a LEFT SHIFT is Present. MCV (mean corpuscular volume ) determinationOrdered By: Alexi Olivas on 12-30-2024 MCV (RBC) [Entitic vol] 106.9 fL High 80-94 [facility] Mean corpuscular hemoglobin (MCH) determinationOrdered By: Alexi Olivas on 12-30-2024 MCH (RBC) [Entitic mass] 35.9 pg High 27.0-32.0 [facility] Mean corpuscular hemoglobin concentration (MCHC) determinationOrdered By: Alexi Olivas on 12-30-2024 MCHC (RBC) [Mass/Vol] 33.6 g/dL 32-36 [facility] Mean platelet volume determi nationOrdered By: Alexi Olivas on 12-30-2024 Platelet mean volume (Bld) [Entitic vol] 9.8 fL 6.2-12.0 [facility] Monocyte percentageOrdered B y: Alexi Olivas on 12-30-2024 Monocytes/100 WBC (Bld) 6.4 % 0-10 [facility] Neutrophil percentageOrdered By: Alexi Olivas on 12-30-2024 Neutrophils/100 WBC (Bld) 88.6 % High 47-70 [facility] Nucleated red blood cell per centageOrdered By: Alexi Olivas on 12-30-2024 Nucleated RBC/100 WBC (Bld) [Ratio] 0 % 0-5 [facility] Platelet countOrdered By: Domenico Olivas on 12-30-2024 Platelets (Bld) [#/Vol] 185 10*3/uL 150-450 [facility] Potassium measurement (mass/ volume)Ordered By: Alexi Olivas on 12-30-2024 Potassium (Unsp spec) [Mass/Vol] 4.0 mmol/L 3.3-5.1 [facility] RBC Auto (Bld) [#/Vol]Ordere d By: Alexi Olivas on 12-30-2024 RBC (Bld) [#/Vol] 3.76 10*6/uL Low 4.6-6.2 [place] Serum creatinine measurement (mass/volume)Ordered By: Alexi Olivas on 12-30-2024 Creatinine [Mass/Vol] 0.70 mg/dL 0.70-1.20 [facility] Serum glucose measurement (m ass/volume)Ordered By: Alexi Olivas on 12-30-2024 Glucose [Mass/Vol] 125 mg/dL High 70-99 [facility] Serum or plasma calcium reid urement (mass/volume)Ordered By: Alexi Olivas on 12-30-2024 Calcium [Mass/Vol] 9.0 mg/dL 7.6-11.0 [facility] Serum or plasma urea nitroge n measurement (mass/volume)Ordered By: Alexi Olivas on 12-30-2024 Urea nitrogen [Mass/Vol] 20 mg/dL High 4-19 [facility] Sodium levelOrdered By: Alexi Olivas on 12-30-2024 Sodium [Moles/Vol] 141 mmol/L 133-145 [facility] White blood cell (WBC) count Ordered By: Alexi Olivas on 12-30-2024 WBC (Bld) [#/Vol] 11.8 10*3/uL High 4.4-11.0 [place] Assessment of wrist artery p atency prior to arterial punctureOrdered By: Alexi Olivas on 12-29-2024 Arterial patency Wrist artery --pre arterial puncture Positive [facility] Basic Metabolic Profile (BMP )on 12-29-2024 BUN/CRE 20.7 RATIO High 10-20 [facility] Comment on above: Performed By: #### L 3890.6200 #### [facility] [address] [place], [address] Calcium [Mass/Vol] 9.1 mg/dL Normal 7.6-11.0 [facility] Comment on above: Performed By: #### L 3890.0 #### [facility] [address] [place], [address] Chloride [Moles/Vol] 105 mmol/L Normal 98-108 [facility] Comment on above: Performed By: #### L 3890.6200 #### [facility] [address] [place], [address] CO2 [Moles/Vol] 21.8 mmol/L Normal 21.0-32.0 [facility] Comment on above: Performed By: #### L 389.0 #### [facility] [address] [place], [address] Creatinine [Mass/Vol] 0.80 mg/dL Normal 0.70-1.20 [facility] Comment on above: Performed By: #### L 3890.6200 #### [facility] [address] [place], [address] ECRCL 94.28 ml/min Normal 50-250 [facility] Comment on above: Performed By: #### L 3890.6200 #### [facility] [address] [place], [address] GAP 12 Normal 5-15 [facility] Comment on above: Performed By: #### L 3890.6200 #### [facility] [address] [place], [address] GFR/1.73 sq M.predicted among non-blacks MDRD (S/P/Bld) [Vol rate/Area] 93 mL/min/{1.73_m2} Normal >60 [facility] Comment on above: Result Comment: mL/m in/1.73m2 CKD-EPI Creatinine Equation (2020) Performed By: #### L 3890.6200 #### [facility] [address] [place], [address] Glucose [Mass/Vol] 169 mg/dL High 70-99 [facility] Comment on above: Performed By: #### L 3890.6200 #### [facility] [address] [place], [address] Potassium [Moles/Vol] 4.3 mmol/L Normal 3.3-5.1 [facility] Comment on above: Performed By: #### L 3890.0 #### [facility] [address] [place], [address] Sodium [Moles/Vol] 139 mmol/L Normal 133-145 [facility] Comment on above: Performed By: #### L 3890.6200 #### [facility] [address] [place], [address] Urea nitrogen [Mass/Vol] 17 mg/dL Normal 4-19 [facility] Comment on above: Performed By: #### L 3890.6200 #### [facility] [address] [place], [address] [facility] Positive Normal [facility] Comment on above: Performed By: #### L 9000.0800 #### [facility] [address] [place], [address] Base excess Calc (Bld) [Moles/Vol] 4 mmol/L High -2 to +2 [facility] Comment on above: Performed By: #### L 9000.0800 #### [facility] [address] [place], [address] Blood Gas Type ART Normal [facility] Comment on above: Performed By: #### L 0.0800 #### [facility] [address] [place], [address] CO2 [Moles/Vol] 29 mmol/L Normal [facility] Comment on above: Performed By: #### L 0.0800 #### [facility] [address] [place], [address] FI02 30.0 Normal [facility] Comment on above: Performed By: #### L 0.0800 #### [facility] [address] [place], [address] HCO3 (Bld) [Moles/Vol] 27.9 mmol/L High 22-26 [facility] Comment on above: Performed By: #### L 0.0800 #### [facility] [address] [place], [address] Mode AC Normal [facility] Comment on above: Performed By: #### L 9000.0800 #### [facility] [address] [place], [address] O2 Delivery Dev ET Tube Normal [facility] Comment on above: Performed By: #### L 0.0800 #### [facility] [address] [place], [address] pCO2 40.5 mmHg Normal 35-45 [facility] Comment on above: Performed By: #### L 0.0800 #### [facility] [address] [place], [address] PEEP 5 Normal [facility] Comment on above: Performed By: #### L 0.0800 #### [facility] [address] [place], [address] pH (Bld) 7.45 [pH] Normal 7.35-7.45 [facility] Comment on above: Performed By: #### L 9000.0800 #### [facility] [address] [place], [address] PO2 76 mmHG Normal 75-100 [facility] Comment on above: Performed By: #### L 9000.0800 #### [facility] [address] [place], [address] RR 14 Normal [facility] Comment on above: Performed By: #### L 9000.0800 #### [facility] [address] [place], [address] SITE R Radial Normal [facility] Comment on above: Performed By: #### L 9000.0800 #### [facility] [address] [place], [address] SO2 96 Normal 95-99 [facility] Comment on above: Performed By: #### L 9000.0800 #### [facility] [address] [place], [address] Vt 500.0 mL Normal [facility] Comment on above: Performed By: #### L 9000.0800 #### [facility] [address] [place], [address] Blood base excess determinat ionOrdered By: Alexi Olivas on 12-29-2024 Base excess Calc (BldV) [Moles/Vol] 4 mmol/L High -2-2 [facility] Blood bicarbonate measuremen tOrdered By: Alexi Olivas on 12-29-2024 HCO3 (Bld) [Moles/Vol] 27.9 mmol/L High 22-26 [facility] Blood cultureOrdered By: Donnie Myers on 12-29-2024 Bacteria identified Cx Nom (Bld) No growth in 5 days. [facility] CBC W/Diff, Automatedon 06-0 8-2024 Absolute Lymph 0.43 X10 3/uL Low 0.83-4.51 [facility] Comment on above: Performed By: #### L 3890.6200 #### [facility] [address] [place], [address] Absolute Neut 13.7 X10 3/uL High 2.0-7.7 [facility] Comment on above: Performed By: #### L 3890.6200 #### [facility] [address] [place], [address] Basophils/100 WBC (Bld) 0.1 % Normal 0-1 [facility] Comment on above: Performed By: #### L 3890.0 #### [facility] [address] [place], [address] Eosinophils/100 WBC (Bld) 0.0 % Normal 0-5 [facility] Comment on above: Performed By: #### L 389.0 #### [facility] [address] [place], [address] Erythrocyte distribution width (RBC) [Ratio] 13.5 % Normal 11.6-14.6 [facility] Comment on above: Performed By: #### L 3890.0 #### [facility] [address] [place], [address] Hematocrit (Bld) [Volume fraction] 42.1 % Normal 40-54 [facility] Comment on above: Performed By: #### L 3890.6200 #### [facility] [address] [place], [address] Hemoglobin (Bld) [Mass/Vol] 14.3 g/dL Normal 13.0-16.5 [facility] Comment on above: Performed By: #### L 3890.6200 #### [facility] [address] [place], [address] IG% 0.500 Normal 0.0-0.9 [facility] Comment on above: Result Comment: IG% - Immature Granulocytes (promyelocytes, myelocytes and metamyelocytes) > 1% indicates that a LEFT SHIFT is Present. Performed By: #### L 389.0 #### [facility] [address] [place], [address] Lymphocytes/100 WBC (Bld) 2.9 % Low 19-41 [facility] Comment on above: Performed By: #### L 3889.0 #### [facility] [address] [place], [address] MCH (RBC) [Entitic mass] 35.8 pg High 27.0-32.0 [facility] Comment on above: Performed By: #### L 3889.6199 #### [facility] [address] [place], [address] MCHC (RBC) [Mass/Vol] 34.0 g/dL Normal 32-36 [facility] Comment on above: Performed By: #### L 3889.0 #### [facility] [address] [place], [address] MCV (RBC) [Entitic vol] 105.5 fL High 80-94 [facility] Comment on above: Performed By: #### L 3889.6199 #### [facility] [address] [place], [address] Monocytes/100 WBC (Bld) 4.4 % Normal 0-10 [facility] Comment on above: Performed By: #### L 3889.0 #### [facility] [address] [place], [address] Neutrophils/100 WBC (Bld) 92.1 % High 47-70 [facility] Comment on above: Performed By: #### L 3889.6199 #### [facility] [address] [place], [address] Nucleated RBC (Bld) [#/Vol] 0 10*3/uL Normal 0-5 [facility] Comment on above: Performed By: #### L 3890.6200 #### [facility] [address], [address] Platelet mean volume (Bld) [Entitic vol] 10.0 fL Normal 6.2-12.0 [facility] Comment on above: Performed By: #### L 3890.6200 #### [facility] [address], [address] Platelets (Bld) [#/Vol] 198 10*3/uL Normal 150-450 [facility] Comment on above: Performed By: #### L 3890.0 #### [facility] [address], [address] RBC (Bld) [#/Vol] 3.99 10*6/uL Low 4.6-6.2 [facility] Comment on above: Performed By: #### L 3890.6200 #### [facility] [address] [place], [address] RDW SD 52.8 fl High 35.1-43.9 [facility] Comment on above: Performed By: #### L 3890.6200 #### [facility] [address] [place], [address] WBC (Bld) [#/Vol] 14.8 10*3/uL High 4.4-11.0 [facility] Comment on above: Performed By: #### L 389.6200 #### [facility] [address], [address] Chest 1 View (Portable)on Chest 1 View (Portable) [facility] [address] [place] [address] Chest 1 View (Portable) MR#: [id number] Acct: [id number] Name: NAZARIO HUTTON Rep #: [id number] : 1950 M 74 From: Anoop price MD PCP: Dr. Valeriano Beasley MD Status: ADM IN Study: Chest 1 View (Portable) Date of Exam: 12/29/24 Exam# [id number] Ordering Dr: Mohit Myers MD PROCEDURE: CHEST 1 VIEW (PORTABLE) 12/29/2024 REASON FOR EXAM: RESP FAILURE, INTUBATED TECHNIQUE: Frontal view of the chest. COMPARISON: 12/27/2024 FINDINGS: Hardware: Unchanged Heart: Heart size is mildly enlarged. Lungs: Interval increased airspace opacities in the lung bases, likely secondary to atelectasis. No pneumothorax. No large pleural effusion. No focal consolidation. Bones: The bones are unremarkable. Other: RAD/Chest 1 View (Portable) IMPRESSION: See above Reading Location: [facility] CC: Dr. Valeriano Beasley MD; Dr. Mohit Myers MD Industrial Editor: Signed Normal [facility] HIVon 12-29-2024 HIV Non-Reactive Normal Nonreactive [facility] Comment on above: Result Comment: Non- Reactive Reactive Repeatedly reactive samples must be confirmed according to CDC recommended confirmatory algorithms. The subresults for either HIVAG or AHIV can be used as an aid in the selection of the confirmation algorithm for reactive samples. Send out specimens with Reactive results to [facility] for confirmation. Order the HIV antibody detection and differentiation: lc#[id number] Performed By: #### L 3890.6200 #### [facility] [address] [place], [place], [address] Influenza virus A and B and SARS-CoV-2 (COVID-19) and Respiratory syncytial virus RNAOrdered By: Mohit Myers on 12-29-2024 SARS-CoV-2 (COVID-19) RNA DEMARIO+probe Ql (Unsp spec) [facility] M100.678on 12-29-2024 M100.678 Pending SARS-CoV-2 (COVID 19) Negative INFLUENZA A Negative INFLUENZA B Negative RSV PCR Negative Normal [facility] Comment on above: Performed By: #### L 3400.5105, L3200.1600, L503.7505, L509.7001 #### [facility] [address] [place], [place], [address] Measurement, pHOrdered By: Courtney Olivas on 12-29-2024 pH (Unsp spec) 7.45 [pH] 7.35-7.45 [facility] No Panel InformationOrdered By: Alexi Olivas on 12-29-2024 Bedside Blood Gas PEEP 5 [facility] Blood Gas Respiration Rate 14 [facility] Blood Gas Sample Site R Radial [facility] Blood Gas Specimen Type ART [facility] Blood Gas Tidal Volume 500.0 mL [facility] Blood Gas Vent Mode AC [place] Oxygen Delivery Device ET Tube [facility] No Panel InformationOrdered By: Mohit Myers on 12-29-2024 Hepatitis C Antibody Comment Comment . [facility] Comment on above: Not infected with HC V unless early or acute infection issuspected (which may be delayed in an immunocompromisedindividual), or other evidence exists to indicate HCVinfection.Performed at: [address] [id number] Director: José Miguel Alba PhD, Phone: [phone] HIV (1&2) Antibody Non-Reactive Nonreactive [facility] Comment on above: Non-ReactiveReactive Repeatedly reactive samples must be confirmed according to CDC recommended confirmatory algorithms. The subresults for either HIVAG or AHIV can be used as an aid in the selection of the confirmation algorithm for reactive samples.Send out specimens with Reactive results to [facility] for confirmation.Order the HIV antibody detection and differentiation: #[id number] Serum or plasma hepatitis B virus surface antigen detection by immunoassayOrdered By: Mohit Myers on 12-29-2024 HBV surface Ag IA Ql Negative Negative [facility] Total carbon dioxide measure mentOrdered By: Alexi Olivas on 12-29-2024 CO2 [Moles/Vol] 29 mmol/L [facility] Urinalysis, Completeon 12-29 BACTERIA Normal None Seen [facility] Comment on above: Order Comment: ALICIA CTOR TO SPECIFY Result Comment: AUGUSTUS ENT DISCHARGED Performed By: #### L 9000.0800 #### [facility] [address] [place], [address] BILIRUBIN URINE Normal Negative [facility] Comment on above: Order Comment: COLLE CTOR TO SPECIFY Result Comment: AUGUSTUS ENT DISCHARGED Performed By: #### L 9000.0800 #### [facility] [address] [place], [address] Clarity (U) Normal Clear [facility] Comment on above: Order Comment: ALICIA CTOR TO SPECIFY Result Comment: AUGUSTUS ENT DISCHARGED Performed By: #### L 9000.0800 #### [facility] [address] [place], [address] Color (U) Normal Yellow [facility] Comment on above: Order Comment: ALICIA CTOR TO SPECIFY Result Comment: AUGUSTUS ENT DISCHARGED Performed By: #### L 9000.0800 #### [facility] [address] [place], [address] EPI,SQUAMOUS Normal 0-5 [facility] Comment on above: Order Comment: ALICIA CTOR TO SPECIFY Result Comment: AUGUSTUS ENT DISCHARGED Performed By: #### L 9000.0800 #### [facility] [address] [place], [address] GLUCOSE, UR Normal Normal [facility] Comment on above: Order Comment: ALICIA CTOR TO SPECIFY Result Comment: AUGUSTUS ENT DISCHARGED Performed By: #### L 9000.0800 #### [facility] [address] [place], [address] KETONE UR Normal Negative [facility] Comment on above: Order Comment: ALICIA CTOR TO SPECIFY Result Comment: AUGUSTUS ENT DISCHARGED Performed By: #### L 9000.0800 #### [facility] [address] [place], [address] LEUK ESTERASE Normal Negative [facility] Comment on above: Order Comment: COLLE CTOR TO SPECIFY Result Comment: AUGUSTUS ENT DISCHARGED Performed By: #### L 9000.0800 #### [facility] [address] [place], [address] Mucus Ql (Urine sed) Normal [facility] Comment on above: Order Comment: COLLE CTOR TO SPECIFY Result Comment: AUGUSTUS ENT DISCHARGED Performed By: #### L 9000.0800 #### [facility] [address] [place], [address] Nitrite Ql (U) Normal Negative [facility] Comment on above: Order Comment: COLLE CTOR TO SPECIFY Result Comment: AUGUSTUS ENT DISCHARGED Performed By: #### L 9000.0800 #### [facility] [address] [place], [address] OCCULT BLOOD-UR Normal Negative [facility] Comment on above: Order Comment: COLLE CTOR TO SPECIFY Result Comment: AUGUSTUS ENT DISCHARGED Performed By: #### L 9000.0800 #### [facility] [address] [place], [address] pH UR Normal 5.0 - 8.0 [facility] Comment on above: Order Comment: COLLE CTOR TO SPECIFY Result Comment: AUGUSTUS ENT DISCHARGED Performed By: #### L 9000.0800 #### [facility] [address] [place], [address] PROT DIPSTX Normal Negative [facility] Comment on above: Order Comment: COLLE CTOR TO SPECIFY Result Comment: AUGUSTUS ENT DISCHARGED Performed By: #### L 9000.0800 #### [facility] [address] [place], [address] RBC Normal 0-5 [facility] Comment on above: Order Comment: COLLE CTOR TO SPECIFY Result Comment: AUGUSTUS ENT DISCHARGED Performed By: #### L 9000.0800 #### [facility] [address] [place], [address] SP.GR. DIPSTX Normal 1.002-1.030 [facility] Comment on above: Order Comment: ALICIA ULRICHOR TO SPECIFY Result Comment: AUGUSTUS ENT DISCHARGED Performed By: #### L 9000.0800 #### [facility] [address] [place], [address] UR Preservative Normal [facility] Comment on above: Order Comment: COLLE CTOR TO SPECIFY Result Comment: AUGUSTUS ENT DISCHARGED Performed By: #### L 9000.0800 #### [facility] [address] [place], [address] UROBILI Normal Normal [facility] Comment on above: Order Comment: ALICIA CTOR TO SPECIFY Result Comment: AUGUSTUS ENT DISCHARGED Performed By: #### L 9000.0800 #### [facility] [address] [place], [address] WBC Normal 0-5 [facility] Comment on above: Order Comment: ALICIA CTOR TO SPECIFY Result Comment: AUGUSTUS ENT DISCHARGED Performed By: #### L 9000.0800 #### [facility] [address] [place], [address] BACTERIA 0 SEEN Normal None Seen [facility] Comment on above: Order Comment: DERRICK TER SPECIMEN Result Comment: @REC EIVED ON ACCIDENT. REORDERED Performed By: #### L 400.0001 #### [facility] [address] [place], [address] EPI,SQUAMOUS 0 SEEN Normal 0-5 [facility] Comment on above: Order Comment: DERRICK TER SPECIMEN Result Comment: @REC EIVED ON ACCIDENT. REORDERED Performed By: #### L 400.0001 #### [facility] [address] [place], [address] Mucus Ql (Urine sed) 0 SEEN Normal [facility] Comment on above: Order Comment: DERRICK TER SPECIMEN Result Comment: @REC EIVED ON ACCIDENT. REORDERED Performed By: #### L 400.0001 #### [facility] [address] [place], [address] RBC 0 SEEN Normal 0-5 [facility] Comment on above: Order Comment: DERRICK TER SPECIMEN Result Comment: @REC EIVED ON ACCIDENT. REORDERED Performed By: #### L 400.0001 #### [facility] [address] [place], [address] WBC 0 SEEN Normal 0-5 [facility] Comment on above: Order Comment: DERRICK TER SPECIMEN Result Comment: @REC EIVED ON ACCIDENT. REORDERED Performed By: #### L 400.0001 #### [facility] [address] [place], [address] BILIRUBIN URINE Normal Negative [facility] Comment on above: Order Comment: DERRICK TER SPECIMEN Result Comment: @REC EIVED ON ACCIDENT. REORDERED Performed By: #### L 400.0001 #### [facility] [address] [place], [address] Clarity (U) Normal Clear [facility] Comment on above: Order Comment: DERRICK TER SPECIMEN Result Comment: @REC EIVED ON ACCIDENT. REORDERED Performed By: #### L 400.0001 #### [facility] [address] [place], [address] Color (U) Normal Yellow [facility] Comment on above: Order Comment: DERRICK TER SPECIMEN Result Comment: @REC EIVED ON ACCIDENT. REORDERED Performed By: #### L 400.0001 #### [facility] [address] [place], [address] GLUCOSE, UR Normal Normal [facility] Comment on above: Order Comment: DERRICK TER SPECIMEN Result Comment: @REC EIVED ON ACCIDENT. REORDERED Performed By: #### L 400.0001 #### [facility] [address] [place], [address] KETONE UR Normal Negative [facility] Comment on above: Order Comment: DERRICK TER SPECIMEN Result Comment: @REC EIVED ON ACCIDENT. REORDERED Performed By: #### L 400.0001 #### [facility] [address] [place], [address] LEUK ESTERASE Normal Negative [facility] Comment on above: Order Comment: DERRICK TER SPECIMEN Result Comment: @REC EIVED ON ACCIDENT. REORDERED Performed By: #### L 400.0001 #### [facility] [address] [place], [address] Nitrite Ql (U) Normal Negative [facility] Comment on above: Order Comment: DERRICK TER SPECIMEN Result Comment: @REC EIVED ON ACCIDENT. REORDERED Performed By: #### L 400.0001 #### [facility] [address] [place], [address] OCCULT BLOOD-UR Normal Negative [facility] Comment on above: Order Comment: DERRICK TER SPECIMEN Result Comment: @REC EIVED ON ACCIDENT. REORDERED Performed By: #### L 400.0001 #### [facility] [address] [place], [address] pH UR Normal 5.0 - 8.0 [facility] Comment on above: Order Comment: DERRICK TER SPECIMEN Result Comment: @REC EIVED ON ACCIDENT. REORDERED Performed By: #### L 400.0001 #### [facility] [address] [place], [address] PROT DIPSTX Normal Negative [facility] Comment on above: Order Comment: DERRICK TER SPECIMEN Result Comment: @REC EIVED ON ACCIDENT. REORDERED Performed By: #### L 400.0001 #### [facility] [address] [place], [address] SP.GR. DIPSTX Normal 1.002-1.030 [facility] Comment on above: Order Comment: DERRICK TER SPECIMEN Result Comment: @REC EIVED ON ACCIDENT. REORDERED Performed By: #### L 400.0001 #### [facility] [address] [place], [address] UR Preservative Normal [facility] Comment on above: Order Comment: DERRICK TER SPECIMEN Result Comment: @REC EIVED ON ACCIDENT. REORDERED Performed By: #### L 400.0001 #### [facility] [address] [place], [address] UROBILI Normal Normal [facility] Comment on above: Order Comment: DERRICK TER SPECIMEN Result Comment: @REC EIVED ON ACCIDENT. REORDERED Performed By: #### L 400.0001 #### [facility] [address] [place], [address] Bilirubin, totalOrdered By: Flakita Florentino on 12-28-2024 Bilirubin [Mass/Vol] 0.59 mg/dL 0.00-1.30 [facility] CBC W/Diff, Automatedon Absolute Lymph 0.45 X10 3/uL Low 0.83-4.51 [facility] Comment on above: Performed By: #### L 9000.0800 #### [facility] [address] [place], [address] Absolute Neut 8.4 X10 3/uL High 2.0-7.7 [facility] Comment on above: Performed By: #### L 9000.0800 #### [facility] [address] [place], [address] Basophils/100 WBC (Bld) 0.1 % Normal 0-1 [facility] Comment on above: Performed By: #### L 9000.0800 #### [facility] [address] [place], [address] Eosinophils/100 WBC (Bld) 0.0 % Normal 0-5 [facility] Comment on above: Performed By: #### L 9000.0800 #### [facility] [address] [place], [address] Erythrocyte distribution width (RBC) [Ratio] 13.3 % Normal 11.6-14.6 [facility] Comment on above: Performed By: #### L 9000.0800 #### [facility] [address] [place], [address] Hematocrit (Bld) [Volume fraction] 41.5 % Normal 40-54 [facility] Comment on above: Performed By: #### L 9000.0800 #### [facility] [address] [place], [address] Hemoglobin (Bld) [Mass/Vol] 14.4 g/dL Normal 13.0-16.5 [facility] Comment on above: Performed By: #### L 9000.0800 #### [facility] [address] [place], [address] IG% 0.600 Normal 0.0-0.9 [facility] Comment on above: Result Comment: IG% - Immature Granulocytes (promyelocytes, myelocytes and metamyelocytes) > 1% indicates that a LEFT SHIFT is Present. Performed By: #### L 9000.0800 #### [facility] [address] [place], [address] Lymphocytes/100 WBC (Bld) 5.0 % Low 19-41 [facility] Comment on above: Performed By: #### L 9000.0800 #### [facility] [address] [place], [address] MCH (RBC) [Entitic mass] 36.0 pg High 27.0-32.0 [facility] Comment on above: Performed By: #### L 9000.0800 #### [facility] [address] [place], [address] MCHC (RBC) [Mass/Vol] 34.7 g/dL Normal 32-36 [facility] Comment on above: Performed By: #### L 9000.0800 #### [facility] [address] [place], [address] MCV (RBC) [Entitic vol] 103.8 fL High 80-94 [facility] Comment on above: Performed By: #### L 9000.0800 #### [facility] [address] [place], [address] Monocytes/100 WBC (Bld) 1.4 % Normal 0-10 [facility] Comment on above: Performed By: #### L 9000.0800 #### [facility] [address] [place], [address] Neutrophils/100 WBC (Bld) 92.9 % High 47-70 [facility] Comment on above: Performed By: #### L 9000.0800 #### [facility] [address] [place], [address] Nucleated RBC (Bld) [#/Vol] 0 10*3/uL Normal 0-5 [facility] Comment on above: Performed By: #### L 9000.0800 #### [facility] [address] [place], [address] Platelet mean volume (Bld) [Entitic vol] 9.8 fL Normal 6.2-12.0 [facility] Comment on above: Performed By: #### L 9000.0800 #### [facility] [address] [place], [address] Platelets (Bld) [#/Vol] 180 10*3/uL Normal 150-450 [facility] Comment on above: Performed By: #### L 9000.0800 #### [facility] [address] [place], [address] RBC (Bld) [#/Vol] 4.00 10*6/uL Low 4.6-6.2 [facility] Comment on above: Performed By: #### L 9000.0800 #### [facility] [address] [place], [address] RDW SD 51.4 fl High 35.1-43.9 [facility] Comment on above: Performed By: #### L 9000.0800 #### [facility] [address] [place], [address] WBC (Bld) [#/Vol] 9.0 10*3/uL Normal 4.4-11.0 [facility] Comment on above: Performed By: #### L 9000.0800 #### [facility] [address] [place], [address] Comprehensive Metabolic Prof [facility] 12-28-2024 Albumin [Mass/Vol] 3.7 g/dL Normal 3.4-4.8 [facility] Comment on above: Performed By: #### L 9000.0800 #### [facility] [address] [place], [address] Albumin/Globulin [Mass ratio] 1.0 {ratio} Normal 0.9-2.4 [facility] Comment on above: Performed By: #### L 9000.0800 #### [facility] [address] [place], [address] ALK PHOS 149 U/L High 40-129 [facility] Comment on above: Performed By: #### L 9000.0800 #### [facility] [address] [place], [address] ALT [Catalytic activity/Vol] 31 U/L Normal <=46 [facility] Comment on above: Performed By: #### L 9000.0800 #### [facility] [address] [place], [address] AST [Catalytic activity/Vol] 42 U/L High <=37 [facility] Comment on above: Result Comment: Hemo lysis present, Results??could be affected. ?? Performed By: #### L 9000.0800 #### [facility] [address] [place], [address] Bilirubin [Mass/Vol] 0.59 mg/dL Normal 0.00-1.30 [facility] Comment on above: Performed By: #### L 9000.0800 #### [facility] [address] [place], [address] BUN/CRE 15.6 RATIO Normal 10-20 [facility] Comment on above: Performed By: #### L 9000.0800 #### [facility] [address] [place], [address] Calcium [Mass/Vol] 9.0 mg/dL Normal 7.6-11.0 [facility] Comment on above: Performed By: #### L 9000.0800 #### [facility] [address] [place], [address] Chloride [Moles/Vol] 105 mmol/L Normal 98-108 [facility] Comment on above: Performed By: #### L 9000.0800 #### [facility] [address] [place], [address] CO2 [Moles/Vol] 19.7 mmol/L Low 21.0-32.0 [facility] Comment on above: Performed By: #### L 9000.0800 #### [facility] [address] [place], [address] Creatinine [Mass/Vol] 0.69 mg/dL Low 0.70-1.20 [facility] Comment on above: Performed By: #### L 9000.0800 #### [facility] [address] [place], [address] ECRCL 94.14 ml/min Normal 50-250 [facility] Comment on above: Performed By: #### L 9000.0800 #### [facility] [address] [place], [address] GAP 13 Normal 5-15 [facility] Comment on above: Performed By: #### L 9000.0800 #### [facility] [address] [place], [address] GFR/1.73 sq M.predicted among non-blacks MDRD (S/P/Bld) [Vol rate/Area] 97 mL/min/{1.73_m2} Normal >60 [facility] Comment on above: Result Comment: mL/m in/1.73m2 CKD-EPI Creatinine Equation (2020) Performed By: #### L 9000.0800 #### [facility] [address] [place], [address] Globulin (S) [Mass/Vol] 3.6 g/dL Normal 2.2-4.2 [facility] Comment on above: Performed By: #### L 9000.0800 #### [facility] [address] [place], [address] Glucose [Mass/Vol] 178 mg/dL High 70-99 [facility] Comment on above: Performed By: #### L 9000.0800 #### [facility] [address] [place], [address] Potassium [Moles/Vol] 4.3 mmol/L Normal 3.3-5.1 [facility] Comment on above: Result Comment: Hemo lysis present, Results??could be affected. ?? Performed By: #### L 9000.0800 #### [facility] [address] [place], [address] Sodium [Moles/Vol] 137 mmol/L Normal 133-145 [facility] Comment on above: Performed By: #### L 9000.0800 #### [facility] [address] [place], [address] T PROT 7.2 g/dL Normal 5.9-8.4 [facility] Comment on above: Performed By: #### L 9000.0800 #### [facility] [address] [place], [address] Urea nitrogen [Mass/Vol] 11 mg/dL Normal 4-19 [facility] Comment on above: Performed By: #### L 9000.0800 #### [facility] [address] [place], [address] Consultation - [facility] 12-28-2024 Consultation - Hog Scalder [facility] Medical Records Department [address] [place] [address] Consultation - Hog Scalder 12/28/24 0916 MR#: [id number] Acct: [id number] Name: NAZARIO HUTTON Rep #: [id number] : 1950 74 From: Mohit Meyrs MD PCP: Dr. Valeriano Beasley MD Status:ADM IN Location: ICU ICU07-1 HPI Consult Data Date of Consult: 12/28/24 HPI Narrative HPI Narrative: NAZARIO HUTTON, is a 74 yo M w/ recurrent angioedema, EtOH cirrhosis, h/o GI bleed from AVMs, CAD, HTN, gout, depression/anxiety who was admitted for angioedema. He apparently had episodes of angioedema here in Mar 2024 and Jul 2024 (unclear etiology but attributed to losartan one of the times). He apparently presented with recurrent tongue/facial swelling of unclear duration. Unclear if any particular trigger. Was urgently intubated in ED for airway protection. Currently stable on vent now. Started on IV solumedrol and H1/H2 blockers. ROS: Unable to obtain as pt intubated [facility] Medical History High serum parathyroid hormone (PTH) Heart murmur Elevated alkaline phosphatase level Elevated PSA Diverticulosis AVM (arteriovenous malformation) of colon Vitamin D deficiency Gout Alcohol abuse Essential hypertension Chest pain Anxiety Depression Myocardial infarct Chest pain Acute blood loss anemia Bloody diarrhea Coronary artery disease Atherosclerotic heart disease of [place] coronary artery without angina pectoris ST elevation SD (STEMI) ( 11/29/21) Hyperlipidemia Hypertension Home Medications ???Medication ???Instructions ???Recorded ???Last Taken ???Type allopurinol 100 mg tablet 100 mg PO DAILY GOUT 03/25/2208/24 History atorvastatin 80 mg tablet 80 mg PO DAILY CHOLESTEOL 03/25/22 09/01/22 History ezetimibe 10 mg tablet 10 mg PO DAILY CHOLESTEROL 3 09/01/22 History nitroglycerin 0.4 mg sublingual 0.4 mg sublingual UD PRN Chest Lima n 09/02/22 Unknown History tablet ascorbic acid (vitamin C) 500 mg 1,000 mg (2 x 500 mg) PO BIDCM 30 09/09/22 Unknown Rx tablet days #120 tabs cholecalciferol (vitamin D3) 125 125 mcg PO DAILY 09/01/23 Unknown History mcg (5,000 unit) capsule omega 3-dha 100 mg-epa 400 mg-fish cap PO 09/01/23 Unknown History oil 1,000 mg capsule vitamin B complex (B 1 tab PO DAILY 09/01/23 Unknown Hi story Complex-Vitamin B12 tablet) isosorbide mononitrate 30 mg 30 mg PO QAM 04/15/24 Unknown Hist ory tablet,extended release 24 hr amlodipine 5 mg tablet 5 mg PO QDAY 09/19/24 Unknown Hist ory carvedilol 12.5 mg tablet 12.5 mg PO BID 09/19/24 Unknown Hi story fexofenadine 180 mg tablet 180 mg PO QDAY 09/19/24 Unknown Hi story fluoxetine 40 mg capsule 40 mg PO QDAY 09/19/24 Unknown His tory gabapentin 300 mg capsule 300 mg PO BID 09/19/24 Unknown His tory doxepin 25 mg capsule 25 mg PO QHS 11/05/24 Unknown Hist ory Allergy/AdvReac Type Severity Reaction Status Date / Time losartan Allergy Severe Angioedema Verified 12/27/24 13:13 hydrochlorothiazide Allergy Hives Verified 12/27/24 13:13 Family History Mother COPD (chronic obstructive pulmonary disease) Lung cancer Father Heart disease Hypertension Myocardial infarction age 53 following SD. Surgical History H/O colonoscopy S/P cataract extraction Presence of coronary angioplasty implant and graft ( 11/29/21) Social History household members: none Smoking Status: Former smoker how long ago did patient quit smoking: Smoked from age 18, 1 ppd x 4 years and then quit. alcohol intake: current alcohol intake frequency: a few times a week Alcohol type: beer substance use type: does not use Objective Data Objective Data Vital Signs: Vital Signs Last response 3 Temperature 36.9 C 12/28/24 09:00 Temperature Source Core 12/28/24 09:00 Pulse Rate 74 12/28/24 09:14 Respiratory Rate 15 12/28/24 09:14 Respiratory Effort Mechanically Ventilated 12/28/24 08:00 Respiratory Depth Normal 12/28/24 08:00 Respiratory Pattern Normal 12/28/24 09:14 Blood Pressure 154/92 H 12/28/24 09:00 Blood Pressure Mean 112 12/28/24 09:00 Blood Pressure Source Monitor 12/28/24 09:00 Blood Pressure Position Semi-Fowlers 12/28/24 09:00 Blood Pressure Location Right Arm 12/28/24 09:00 Pulse Ox 94 12/28/24 09:14 Oxygen Delivery Method Mechanical Ventilator 12/28/24 09:00 Fraction of Inspired Oxygen (FIO2) 30 12/28/24 09:14 I O: I O Last 24 Hours 3 12/27/24 12/27/24 12/28/24 11:59 23:59 11:59 Intake Total 226.97 / 249.13 1216.83 / 1216.83 Output Total 550 / 550 400 / 400 (more content not included)... Normal [facility] Gram stainOrdered By: Mohit Myers on 12-28-2024 Microscopic observation Gram stain Nom (Unsp spec) [facility] IgEOrdered By: Mohit Myers on 12-28-2024 IgE 214 IU/mL 6-495 [facility] Comment on above: Performed at: [facility] [place], [place] [id number] Director: Zafar Browne MD, Phone: [phone] [phone] 12-28-2024 Natriuretic peptide B (Bld) [Mass/Vol] 2229 pg/mL High <=900 [facility] Comment on above: Result Comment: Hear t Failure Unlikely: < 300 pg/mL Heart Failure Likely < 50 Years: > 450 pg/mL 50-75 Years: > 900 pg/mL >75 Years: > 1800 pg/mL Performed By: #### L 3400.5105, L3200.1600, L503.7505, L509.7001 #### [facility] [address] [place], [place], [address] [id number] 12-28-2024 Procalcitonin 0.18 ng/mL High <=0.10 [facility] Comment on above: Result Comment: Inte rpretation: <0.10-0.25 ng/mL: Antibiotic therapy discouraged. Bacterial infection unlikely. 0.25-0.50 ng/mL: Antibiotic therapy encouraged. Bacterial infection possible. >0.50 ng/mL: Antibiotic therapy strongly encouraged. Suggestive of presence of bacterial infection. PCT should always be interpreted in the clinical context of the patient. Therefore, clinicians should use the PCT results in conjunction with other laboratory findings and clinical signs of the patient. Performed By: #### L 3400.5105, L3200.1600, L503.7505, L509.7001 #### [facility] [address] [place], [place], [address] Laboratory - Chemistry and C hemistry - challengeOrdered By: Flakita Florentino on 12-28-2024 AST [Catalytic activity/Vol] 42 U/L High <38 [facility] Comment on above: Hemolysis present, R esults could be affected. Magnesiumon 12-28-2024 Magnesium [Mass/Vol] 2.1 mg/dL Normal 1.5-2.2 [facility] Comment on above: Performed By: #### L 9000.0800 #### [facility] [address] [place], [place], [address] Magnesium measurement (mass/ volume)Ordered By: Flakita Florentino on 12-28-2024 Magnesium (Unsp spec) [Mass/Vol] 2.1 mg/dL 1.5-2.2 [facility] Microbial respiratory cultur eOrdered By: Mohit Myers on 12-28-2024 Microorganism identified Cx Nom (Unsp spec) Staphylococcus aureus Abnormal [facility] Microorganism identified Cx Nom (Unsp spec) Streptococcus agalactiae (B) Abnormal [facility] Microorganism identified Cx Nom (Unsp spec) Streptococcus group F Abnormal [facility] Natriuretic peptide.B prohor archie N-Terminal [Mass/volume] in Serum or PlasmaOrdered By: Mohit Myers on 12-28-2024 Natriuretic peptide.B prohormone N-Terminal [Mass/Vol] 2229 pg/mL High <900 [facility] Comment on above: Heart Failure Unlike ly: < 300 pg/mLHeart Failure Likely< 50 Years: > 450 pg/mL50-75 Years: > 900 pg/mL>75 Years: > 1800 pg/mL Phosphoruson 12-28-2024 Phosphate [Mass/Vol] 3.3 mg/dL Normal 2.7-4.5 [facility] Comment on above: Performed By: #### L 9000.0800 #### [facility] [address] [facility] [place], [place], [address] Procalcitonin [Mass/volume] in Serum or Plasma by ImmunoassayOrdered By: Mohit Myers on 12-28-2024 Procalcitonin IA [Mass/Vol] 0.18 ng/mL High <0.11 [facility] Comment on above: Interpretation:<0.10 -0.25 ng/mL: Antibiotic therapy discouraged. Bacterial infection unlikely.0.25-0.50 ng/mL: Antibiotic therapy encouraged. Bacterial infection possible.>0.50 ng/mL: Antibiotic therapy strongly encouraged. Suggestive of presence of bacterial infection.PCT should always be interpreted in the clinical context of the patient. Therefore, clinicians should use the PCT results in conjunction with other laboratory findings and clinical signs of the patient. Respiratory Cultureon 2024 RESPC Mixed normal respira tory adrian. No Streptococcus pneumoniae, beta-hemolytic Streptococcus or Staphylococcus aureus isolated. Normal [facility] Comment on above: Performed By: #### L 500.2500, L100.0100 #### [facility] [address] [place], [address] Serum globulin measurementOr dered By: Flakita Florentino on 12-28-2024 Globulin (S) [Mass/Vol] 3.6 g/dL 2.2-4.2 [facility] Serum or plasma alanine guevara otransferase (ALT) measurementOrdered By: Flakita Florentino on 12-28-2024 ALT [Catalytic activity/Vol] 31 U/L <47 [facility] Serum or plasma albumin reid urement (mass/volume)Ordered By: Flakita Florentino on 12-28-2024 Albumin [Mass/Vol] 3.7 g/dL 3.4-4.8 [facility] Serum or plasma albumin/glob ulin mass ratioOrdered By: Flakita Florentino on 12-28-2024 Albumin/Globulin [Mass ratio] 1.0 {ratio} 0.9-2.4 [facility] Serum or plasma alkaline adelfo sphatase measurementOrdered By: Flakita Florentino on 12-28-2024 ALP [Catalytic activity/Vol] 149 U/L High 40-129 [facility] Total proteinOrdered By: Dee Florentino on 12-28-2024 Protein [Mass/Vol] 7.2 g/dL 5.9-8.4 [facility] 12 Lead EKGon 12-27-2024 12 Lead EKG [facility] [address] [place] [address] 12 Lead EKG 12/27/24 1414 MR#: [id number] Acct: [id number] Name: NAZARIO HUTTON Rep #: [id number] : 1950 74 From: Sabrina Arrington MD Attending Dr: Dr. Alexi Olivas, DO Status: ADM IN Ordering Dr: Marino Holguin MD Date: 12/27/24 Location: ICU Sex: M C Admitted: 12/27/24 Test Reason : Blood Pressure : */* mmHG Vent. Rate : 82 BPM Atrial Rate : 82 BPM P-R Int : 278 ms QRS Dur : 156 ms QT Int : 442 ms P-R-T Axes : 36 -43 120 degrees QTcB Int : 516 ms Sinus rhythm with 1st degree A-V block Left axis deviation Left bundle branch block Abnormal ECG Confirmed by HUGH LUNA, MORRIS ([id number]), content editor CAREY BAUER ([id number]) on 12/30/2024 6:52:47 AM Referred By: Confirmed By: MORRIS ARRINGTON MD 12/30/24651 Date Sabrina Arrington MD CC: Dr. Alexi Olivas DO; Dr. Valeriano Beasley MD; Dr. Marino Holguin MD Signed Normal [facility] Absolute lymphocyte countOrd ered By: Marino Holguin on 12-27-2024 Lymphocytes Auto (Unsp spec) [#/Vol] 0.73 10*3/uL Low 0.83-4.51 [facility] Absolute neutrophil countOrd ered By: Marino Holguin on 12-27-2024 Neutrophils (Bld) [#/Vol] 5.0 10*3/uL 2.0-7.7 [facility] Anion gap in Serum or Plasma Ordered By: Marino Holguin on 12-27-2024 Anion gap [Moles/Vol] 11 mmol/L 5-15 [facility] Assessment of wrist artery p atency prior to arterial punctureOrdered By: Marino Holguin on 12-27-2024 Arterial patency Wrist artery --pre arterial puncture Positive [facility] Automated lymphocyte count a s percentage of total leukocytesOrdered By: Marino Holguin on 12-27-2024 Lymphocytes/100 WBC Auto (Unsp spec) 9.8 % Low 19-41 [facility] BUN/creatinine ratioOrdered By: Marino Holguin on 12-27-2024 Urea nitrogen/Creatinine [Mass ratio] 14.1 mg/mg 10-20 [facility] Basophil percentageOrdered B y: Marino Holguin on 12-27-2024 Basophils/100 WBC (Bld) 0.8 % 0-1 [facility] Bilirubin, totalOrdered By: Marino Holguin on 12-27-2024 Bilirubin [Mass/Vol] 0.80 mg/dL 0.00-1.30 [facility] Blood Gases by CPSon 025 TATY TEST Positive Normal [facility] Comment on above: Performed By: #### L 9000.0800 #### [facility] [address] [place], [address] Base excess Calc (Bld) [Moles/Vol] 1 mmol/L Normal -2 to +2 [facility] Comment on above: Performed By: #### L 9000.0800 #### [facility] [address] [place], [address] Blood Gas Type ART Normal [facility] Comment on above: Performed By: #### L 9000.0800 #### [facility] [address] [place], [address] CO2 [Moles/Vol] 26 mmol/L Normal [facility] Comment on above: Performed By: #### L 9000.0800 #### [facility] [address] [place], [address] FI02 30.0 Normal [facility] Comment on above: Performed By: #### L 9000.0800 #### [facility] [address] [place], [address] HCO3 (Bld) [Moles/Vol] 24.9 mmol/L Normal 22-26 [facility] Comment on above: Performed By: #### L 9000.0800 #### [facility] [address] [place], [address] Mode AC Normal [facility] Comment on above: Performed By: #### L 9000.0800 #### [facility] [address] [place], [address] O2 Delivery Dev Adult Vent Normal [facility] Comment on above: Performed By: #### L 9000.0800 #### [facility] [address] [place], [address] pCO2 37.4 mmHg Normal 35-45 [facility] Comment on above: Performed By: #### L 9000.0800 #### [facility] [address] [place], [address] PEEP 5 Normal [facility] Comment on above: Performed By: #### L 9000.0800 #### [facility] [address] [place], [address] pH (Bld) 7.43 [pH] Normal 7.35-7.45 [facility] Comment on above: Performed By: #### L 9000.0800 #### [facility] [address] [place], [address] PO2 91 mmHG Normal 75-100 [facility] Comment on above: Performed By: #### L 9000.0800 #### [facility] [address] [place], [address] RR 14 Normal [facility] Comment on above: Performed By: #### L 9000.0800 #### [facility] [address] [place], [address] SITE L Radial Normal [facility] Comment on above: Performed By: #### L 9000.0800 #### [facility] [address] [place], [address] SO2 97 Normal 95-99 [facility] Comment on above: Performed By: #### L 9000.0800 #### [facility] [address] [place], [address] Vt 500.0 mL Normal [facility] Comment on above: Performed By: #### L 9000.0800 #### [facility] [address] [place], [address] Blood base excess determinat ionOrdered By: Marino Holguin on 12-27-2024 Base excess Calc (BldV) [Moles/Vol] 1 mmol/L -2-2 [facility] Blood bicarbonate measuremen tOrdered By: Marino Holguin on 12-27-2024 HCO3 (Bld) [Moles/Vol] 24.9 mmol/L [facility] CBC W/Diff, Automatedon Absolute Lymph 0.73 X10 3/uL Low 0.83-4.51 [facility] Comment on above: Performed By: #### L 3400.5105, L3200.1600, L503.7505, L509.7001 #### [facility] [address] [place], [address] Absolute Neut 5.0 X10 3/uL Normal 2.0-7.7 [facility] Comment on above: Performed By: #### L 3400.5105, L3200.1600, L503.7505, L509.7001 #### [facility] [address] [place], [address] Basophils/100 WBC (Bld) 0.8 % Normal 0-1 [facility] Comment on above: Performed By: #### L 3400.5105, L3200.1600, L503.7505, L509.7001 #### [facility] [address] [place], [address] Eosinophils/100 WBC (Bld) 10.8 % High 0-5 [facility] Comment on above: Performed By: #### L 3400.5105, L3200.1600, L503.7505, L509.7001 #### [facility] [address] [place], [address] Erythrocyte distribution width (RBC) [Ratio] 13.3 % Normal 11.6-14.6 [facility] Comment on above: Performed By: #### L 3400.5105, L3200.1600, L503.7505, L509.7001 #### [facility] [address] [place], [address] Hematocrit (Bld) [Volume fraction] 40.9 % Normal 40-54 [facility] Comment on above: Performed By: #### L 3400.5105, L3200.1600, L503.7505, L509.7001 #### [facility] [address] [place], [address] Hemoglobin (Bld) [Mass/Vol] 14.1 g/dL Normal 13.0-16.5 [facility] Comment on above: Performed By: #### L 3400.5105, L3200.1600, L503.7505, L509.7001 #### [facility] [address] [place], [address] IG% 0.300 Normal 0.0-0.9 [facility] Comment on above: Result Comment: IG% - Immature Granulocytes (promyelocytes, myelocytes and metamyelocytes) > 1% indicates that a LEFT SHIFT is Present. Performed By: #### L 3400.5105, L3200.1600, L503.7505, L509.7001 #### [facility] [address] [place], [address] Lymphocytes/100 WBC (Bld) 9.8 % Low 19-41 [facility] Comment on above: Performed By: #### L 3400.5105, L3200.1600, L503.7505, L509.7001 #### [facility] [address] [place], [address] MCH (RBC) [Entitic mass] 35.7 pg High 27.0-32.0 [facility] Comment on above: Performed By: #### L 3400.5105, L3200.1600, L503.7505, L509.7001 #### [facility] [address] [place], [address] MCHC (RBC) [Mass/Vol] 34.5 g/dL Normal 32-36 [facility] Comment on above: Performed By: #### L 3400.5105, L3200.1600, L503.7505, L509.7001 #### [facility] [address] [place], [address] MCV (RBC) [Entitic vol] 103.5 fL High 80-94 [facility] Comment on above: Performed By: #### L 3400.5105, L3200.1600, L503.7505, L509.7001 #### [facility] [address] [place], [address] Monocytes/100 WBC (Bld) 11.2 % High 0-10 [facility] Comment on above: Performed By: #### L 3400.5105, L3200.1600, L503.7505, L509.7001 #### [facility] [address] [place], [address] Neutrophils/100 WBC (Bld) 67.1 % Normal 47-70 [facility] Comment on above: Performed By: #### L 3400.5105, L3200.1600, L503.7505, L509.7001 #### [facility] [address] [place], [address] Nucleated RBC (Bld) [#/Vol] 0 10*3/uL Normal 0-5 [facility] Comment on above: Performed By: #### L 3400.5105, L3200.1600, L503.7505, L509.7001 #### [facility] [address] [place], [address] Platelet mean volume (Bld) [Entitic vol] 9.7 fL Normal 6.2-12.0 [facility] Comment on above: Performed By: #### L 3400.5105, L3200.1600, L503.7505, L509.7001 #### [facility] [address] [place], [address] Platelets (Bld) [#/Vol] 200 10*3/uL Normal 150-450 [facility] Comment on above: Performed By: #### L 3400.5105, L3200.1600, L503.7505, L509.7001 #### [facility] [address] [place], [address] RBC (Bld) [#/Vol] 3.95 10*6/uL Low 4.6-6.2 [facility] Comment on above: Performed By: #### L 3400.5105, L3200.1600, L503.7505, L509.7001 #### [facility] [address] [place], [address] RDW SD 51.5 fl High 35.1-43.9 [facility] Comment on above: Performed By: #### L 3400.5105, L3200.1600, L503.7505, L509.7001 #### [facility] [address] [place], [address] WBC (Bld) [#/Vol] 7.5 10*3/uL Normal 4.4-11.0 [facility] Comment on above: Performed By: #### L 3400.5105, L3200.1600, L503.7505, L509.7001 #### [facility] [address] [place], [address] CPK Total, Creatine Kinaseon 12-27-2024 CPK TOTAL 120 U/L Normal 24-195 [facility] Comment on above: Order Comment: Comme nts: DC when propofol is d/c'd Performed By: #### L 9000.0800 #### [facility] [address] [place], [address] Carbon dioxide, total [Moles /volume] in Central venous bloodOrdered By: Marino Holguin on 12-27-2024 CO2 [Moles/Vol] 23.1 mmol/L 21.0-32.0 [facility] Chest 1 View (Portable)on Chest 1 View (Portable) [facility] Imaging Services [address] [place] [address] Chest 1 View (Portable) MR#: [id number] Acct: [id number] Name: NAZARIO HUTTON Rep #: [id number] : 1950 M 74 From: Tessa Granados PCP: Dr. Valeriano Beasley MD Status: [facility] ER Study: Chest 1 View (Portable) Date of Exam: 12/27/24 Exam# [id number] Ordering Dr: Marino Holguin MD PROCEDURE: CHEST 1 VIEW (PORTABLE) 12/27/2024 REASON FOR EXAM: INTUBATION TECHNIQUE: Two-view AP portable upright chest. COMPARISON: None. RAD/Chest 1 View (Portable) IMPRESSION: Endotracheal tube seen with tip approximately 4 cm above the bernadine. Nasogastric tube seen coursing of the stomach, with tip excluded from view. No pneumothorax is seen. No pleural effusion is evident. Bilateral lower lung airspace disease is seen, [id number]. Differential diagnosis includes atelectasis and pneumonitis. No evidence of pulmonary edema. The cardiomediastinal silhouette is within the normal range. No acute osseous change is evident. Reading Location: [id number] CC: Dr. Valeriano Beasley MD; Dr. Marino Holguin MD Industrial Editor: Signed Normal [facility] Chloride assayOrdered By: Jake Holguin on 12-27-2024 Chloride [Moles/Vol] 105 mmol/L 98-108 [facility] Comprehensive Metabolic Prof ilon 12-27-2024 Albumin [Mass/Vol] 4.0 g/dL Normal 3.4-4.8 [facility] Comment on above: Performed By: #### L 3400.5105, L3200.1600, L503.7505, L509.7001 #### [facility] [address] [place], [address] Albumin/Globulin [Mass ratio] 1.1 {ratio} Normal 0.9-2.4 [facility] Comment on above: Performed By: #### L 3400.5105, L3200.1600, L503.7505, L509.7001 #### [facility] [address] [place], [address] ALK PHOS 151 U/L High 40-129 [facility] Comment on above: Performed By: #### L 3400.5105, L3200.1600, L503.7505, L509.7001 #### [facility] [address] [place], [address] ALT [Catalytic activity/Vol] 34 U/L Normal <=46 [facility] Comment on above: Performed By: #### L 3400.5105, L3200.1600, L503.7505, L509.7001 #### [facility] [address] [place], [address] AST [Catalytic activity/Vol] 50 U/L High <=37 [facility] Comment on above: Performed By: #### L 3400.5105, L3200.1600, L503.7505, L509.7001 #### [facility] [address] [place], [address] Bilirubin [Mass/Vol] 0.80 mg/dL Normal 0.00-1.30 [facility] Comment on above: Performed By: #### L 3400.5105, L3200.1600, L503.7505, L509.7001 #### [facility] [address] [place], [address] BUN/CRE 14.1 RATIO Normal 10-20 [facility] Comment on above: Performed By: #### L 3400.5105, L3200.1600, L503.7505, L509.7001 #### [facility] [address] [place], [address] Calcium [Mass/Vol] 9.4 mg/dL Normal 7.6-11.0 [facility] Comment on above: Performed By: #### L 3400.5105, L3200.1600, L503.7505, L509.7001 #### [facility] [address] [place], [address] Chloride [Moles/Vol] 105 mmol/L Normal 98-108 [facility] Comment on above: Performed By: #### L 3400.5105, L3200.1600, L503.7505, L509.7001 #### [facility] [address] [place], [address] CO2 [Moles/Vol] 23.1 mmol/L Normal 21.0-32.0 [facility] Comment on above: Performed By: #### L 3400.5105, L3200.1600, L503.7505, L509.7001 #### [facility] [address] [place], [address] Creatinine [Mass/Vol] 0.72 mg/dL Normal 0.70-1.20 [facility] Comment on above: Performed By: #### L 3400.5105, L3200.1600, L503.7505, L509.7001 #### [facility] [address] [place], [address] ECRCL 93.74 ml/min Normal 50-250 [facility] Comment on above: Performed By: #### L 3400.5105, L3200.1600, L503.7505, L509.7001 #### [facility] [address] [place], [address] GAP 11 Normal 5-15 [facility] Comment on above: Performed By: #### L 3400.5105, L3200.1600, L503.7505, L509.7001 #### [facility] [address] [place], [address] GFR/1.73 sq M.predicted among non-blacks MDRD (S/P/Bld) [Vol rate/Area] 96 mL/min/{1.73_m2} Normal >60 [facility] Comment on above: Result Comment: mL/m in/1.73m2 CKD-EPI Creatinine Equation (2020) Performed By: #### L 3400.5105, L3200.1600, L503.7505, L509.7001 #### [facility] [address] [place], [address] Globulin (S) [Mass/Vol] 3.5 g/dL Normal 2.2-4.2 [facility] Comment on above: Performed By: #### L 3400.5105, L3200.1600, L503.7505, L509.7001 #### [facility] [address] [place], [address] Glucose [Mass/Vol] 95 mg/dL Normal 70-99 [facility] Comment on above: Performed By: #### L 3400.5105, L3200.1600, L503.7505, L509.7001 #### [facility] [address] [place], [address] Potassium [Moles/Vol] 4.7 mmol/L Normal 3.3-5.1 [facility] Comment on above: Performed By: #### L 3400.5105, L3200.1600, L503.7505, L509.7001 #### [facility] [address] [place], [address] Sodium [Moles/Vol] 139 mmol/L Normal 133-145 [facility] Comment on above: Performed By: #### L 3400.5105, L3200.1600, L503.7505, L509.7001 #### [facility] [address] [place], [address] T PROT 7.4 g/dL Normal 5.9-8.4 [facility] Comment on above: Performed By: #### L 3400.5105, L3200.1600, L503.7505, L509.7001 #### [facility] [address] [place], [address] Urea nitrogen [Mass/Vol] 10 mg/dL Normal 4-19 [facility] Comment on above: Performed By: #### L 3400.5105, L3200.1600, L503.7505, L509.7001 #### [facility] [address] [place], [address] Emergency Department Summary on 12-27-2024 Emergency Department Summary [facility] Medical Records Department [address] [place] [address] Emergency Department Summary 12/27/24 MR#: [id number] Acct: [id number] Name: NAZARIO HUTTON Rep #: [id number] : 1950 74 From: Marino Holguin MD PCP: Dr. Valeriano Beasley MD Status:REG ER Location: ED HPI History of Present Illness Chief Complaint: Allergic Reaction Detail of Chief Complaint: Angioedema Informant: patient Onset/Context/Timing Onset: Hours ( onset 0900) Context: Sudden Onset Timing: Continuous Quality: Slurred words, difficulty swallowing Mechanism/Context: Yes other Current Severity: Severe Maximum Severity: Severe Worsened by: Unknown Relieved by: nothing Associated Symptoms Associated Symptoms: other (Angioedema) Narrative Narrative: Patient is a 74-year-old gentleman. He presented in March and July 20232024 respectively with angioedema. He was not on an JOSE inhibitor or ARB at that time. He has no known history of familial angioedema. He denies rash. He denies itching. He denies cardiovascular symptoms or orthostatic symptoms. Prior similar symptoms: Yes Recent Illness/Hospitalization: No PFSH [facility] Medical History High serum parathyroid hormone (PTH) Heart murmur Elevated alkaline phosphatase level Elevated PSA Diverticulosis AVM (arteriovenous malformation) of colon Vitamin D deficiency Gout Alcohol abuse Essential hypertension Chest pain Anxiety Depression Myocardial infarct Chest pain Acute blood loss anemia Bloody diarrhea Coronary artery disease Atherosclerotic heart disease of [place] coronary artery without angina pectoris ST elevation SD (STEMI) ( 11/29/21) Hyperlipidemia Hypertension Home Medications ???Medication ???Instructions ???Recorded ???Last Taken ???Type allopurinol 100 mg tablet 100 mg PO DAILY GOUT 03/25/2208/24 History atorvastatin 80 mg tablet 80 mg PO DAILY CHOLESTEOL 03/25/22 09/01/22 History ezetimibe 10 mg tablet 10 mg PO DAILY CHOLESTEROL 3 09/01/22 History nitroglycerin 0.4 mg sublingual 0.4 mg sublingual UD PRN Chest Lima n 09/02/22 Unknown History tablet ascorbic acid (vitamin C) 500 mg 1,000 mg (2 x 500 mg) PO BIDCM 30 09/09/22 Unknown Rx tablet days #120 tabs cholecalciferol (vitamin D3) 125 125 mcg PO DAILY 09/01/23 Unknown History mcg (5,000 unit) capsule omega 3-dha 100 mg-epa 400 mg-fish cap PO 09/01/23 Unknown History oil 1,000 mg capsule vitamin B complex (B 1 tab PO DAILY 09/01/23 Unknown Hi story Complex-Vitamin B12 tablet) isosorbide mononitrate 30 mg 30 mg PO QAM 04/15/24 Unknown Hist ory tablet,extended release 24 hr amlodipine 5 mg tablet 5 mg PO QDAY 09/19/24 Unknown Hist ory carvedilol 12.5 mg tablet 12.5 mg PO BID 09/19/24 Unknown Hi story fexofenadine 180 mg tablet 180 mg PO QDAY 09/19/24 Unknown Hi story fluoxetine 40 mg capsule 40 mg PO QDAY 09/19/24 Unknown His tory gabapentin 300 mg capsule 300 mg PO BID 09/19/24 Unknown His tory doxepin 25 mg capsule 25 mg PO QHS 11/05/24 Unknown Hist ory Allergy/AdvReac Type Severity Reaction Status Date / Time losartan Allergy Severe Angioedema Verified 12/27/24 13:13 hydrochlorothiazide Allergy Hives Verified 12/27/24 13:13 Family History Mother COPD (chronic obstructive pulmonary disease) Lung cancer Father Heart disease Hypertension Myocardial infarction age 53 following SD. Surgical History H/O colonoscopy S/P cataract extraction Presence of coronary angioplasty implant and graft ( 11/29/21) Social History household members: none Smoking Status: Former smoker how long ago did patient quit smoking: Smoked from age 18, 1 ppd x 4 years and then quit. alcohol intake: current alcohol intake frequency: a few times a week Alcohol type: beer substance use type: does not use ROS ROS ED Constitutional Constitutional ED: Denies chills, fever(s), subjective or sweats ENT ENT ED: Reports other Details: Swelling under his chin and tongue trouble swallowing and speaking ; Denies ear pain, rhinorrhea or sore throat Cardiovascular Cardiovascular: Denies chest pain or palpitations Respiratory/Chest Respiratory/Chest: Denies cough or dyspnea Gastrointestinal Gastrointestinal: Denies abdominal pain, nausea or vomiting Musculoskeletal Musculoskeletal: Denies arthralgias, myalgias or neck pain Integumentary Denies rash Hematologic/Lymphatic Hematologic/Lymphatic: Denies easy bleeding or easy bruising EXAM Physical Exam Const Vital Signs: 12/27/24 13:13 12/27/24 13:40 12/27/24 13:42 Temp (more content not included)... Normal [facility] Eosinophil percentageOrdered By: Marino Holguin on 12-27-2024 Eosinophils/100 WBC (Bld) 10.8 % High 0-5 [facility] Erythrocyte distribution wid th ratioOrdered By: Marino Holguin on 12-27-2024 Erythrocyte distribution width (RBC) [Ratio] 13.3 % 11.6-14.6 [facility] Erythrocyte distribution wid th standard deviationOrdered By: Marino Holguin on 12-27-2024 Erythrocyte distribution width (RBC) [Ratio] 51.5 fl High 35.1-43.9 [facility] Glomerular filtration rate ( GFR) estimation/1.73 sq m using serum, plasma, or whole bOrdered By: Marino Holguin on 12-27-2024 GFR/1.73 sq M.predicted among non-blacks MDRD (S/P/Bld) [Vol rate/Area] 96 mL/min/{1.73_m2} >60 [facility] Comment on above: mL/min/1.73m2 CKD-EP I Creatinine Equation (2020) Gram stainOrdered By: Marino choudhary on 12-27-2024 Microscopic observation Gram stain Nom (Unsp spec) [facility] H AND P Exam - [facility] 12-27-2024 H&P Exam - Hospitalist [facility] Medical Records Department [address] [place] [address] H P Exam - Hospitalist 12/27/24 1411 MR#: [id number] Acct: [id number] Name: NAZARIO HUTTON Rep #: [id number] : 1950 74 From: Flakita Florentino DO PCP: Dr. Valeriano Beasley MD Status:REG ER Location: ED HPI - General General Date of Admission: 12/27/24 Date of Service: 12/27/24 Chief Complaint: Tongue and lip swelling HPI Narrative NAZARIO HUTTON, is a 74 M who presented to the emergency department at [facility] on 12/27/2024 with tongue and lip swelling. Patient has had previous angioedema events in March 2024 and July 2024 at this facility. It does appear that ARB has been listed as an allergy. He reported on presentation to the emergency department physician that there is no familial angioedema. Was reported he did not eat out anything out of the norm. I was unable to elicit a history as the patient was intubated at the time of my evaluation. Due to rapid swelling of the tongue immediate rapid sequence intubation was pursued by the emergency department. Vital signs on presentation showed a temperature of 98, heart rate 85, respiratory 16, blood pressure 165/97 and pulse ox was 99% on room air. CBC was unremarkable. He does appear to have a chronic lymphopenia, monocytosis, and eosinophilia. Chemistry was unremarkable. AST is slightly elevated at 50. Chest x-ray shows ET tube and OG in good place with some plate atelectasis in the right middle lobe. EKG is normal sinus rhythm without any ST-T wave changes concerning for acute ischemia. He will be admitted to the ICU and maintained on Solu-Medrol, H2 and H1 blockers. [facility] Medical History High serum parathyroid hormone (PTH) Heart murmur Elevated alkaline phosphatase level Elevated PSA Diverticulosis AVM (arteriovenous malformation) of colon Vitamin D deficiency Gout Alcohol abuse Essential hypertension Chest pain Anxiety Depression Myocardial infarct Chest pain Acute blood loss anemia Bloody diarrhea Coronary artery disease Atherosclerotic heart disease of [place] coronary artery without angina pectoris ST elevation SD (STEMI) ( 11/29/21) Hyperlipidemia Hypertension Home Medications ???Medication ???Instructions ???Recorded ???Last Taken ???Type allopurinol 100 mg tablet 100 mg PO DAILY GOUT 03/25/2208/24 History atorvastatin 80 mg tablet 80 mg PO DAILY CHOLESTEOL 03/25/22 09/01/22 History ezetimibe 10 mg tablet 10 mg PO DAILY CHOLESTEROL 3 09/01/22 History nitroglycerin 0.4 mg sublingual 0.4 mg sublingual UD PRN Chest Lima n 09/02/22 Unknown History tablet ascorbic acid (vitamin C) 500 mg 1,000 mg (2 x 500 mg) PO BIDCM 30 09/09/22 Unknown Rx tablet days #120 tabs cholecalciferol (vitamin D3) 125 125 mcg PO DAILY 09/01/23 Unknown History mcg (5,000 unit) capsule omega 3-dha 100 mg-epa 400 mg-fish cap PO 09/01/23 Unknown History oil 1,000 mg capsule vitamin B complex (B 1 tab PO DAILY 09/01/23 Unknown Hi story Complex-Vitamin B12 tablet) isosorbide mononitrate 30 mg 30 mg PO QAM 04/15/24 Unknown Hist ory tablet,extended release 24 hr amlodipine 5 mg tablet 5 mg PO QDAY 09/19/24 Unknown Hist ory carvedilol 12.5 mg tablet 12.5 mg PO BID 09/19/24 Unknown Hi story fexofenadine 180 mg tablet 180 mg PO QDAY 09/19/24 Unknown Hi story fluoxetine 40 mg capsule 40 mg PO QDAY 09/19/24 Unknown His tory gabapentin 300 mg capsule 300 mg PO BID 09/19/24 Unknown His tory doxepin 25 mg capsule 25 mg PO QHS 11/05/24 Unknown Hist ory Allergy/AdvReac Type Severity Reaction Status Date / Time losartan Allergy Severe Angioedema Verified 12/27/24 13:13 hydrochlorothiazide Allergy Hives Verified 12/27/24 13:13 Family History Mother COPD (chronic obstructive pulmonary disease) Lung cancer Father Heart disease Hypertension Myocardial infarction age 53 following SD. Surgical History H/O colonoscopy S/P cataract extraction Presence of coronary angioplasty implant and graft ( 11/29/21) Social History household members: none Smoking Status: Former smoker how long ago did patient quit smoking: Smoked from age 18, 1 ppd x 4 years and then quit. alcohol intake: current alcohol intake frequency: a few times a week Alcohol type: beer substance use type: does not use ROS Review of Systems ROS Unobtainable: due to endotracheal tube Vital Signs Vital Signs Vital Signs: 12/27/24 13:13 12/27/24 13:40 12/27/24 13:42 Temperature 98 F Temperature Source Oral Pulse Rate 85 Resp (more content not included)... Normal [facility] Hematocrit Auto (Bld) [Volum e fraction]Ordered By: Marino Holguin on 12-27-2024 Hematocrit (Bld) [Volume fraction] 40.9 % 40-54 [facility] Hemoglobin measurementOrdere d By: Marino Holguin on 12-27-2024 Hemoglobin (Bld) [Mass/Vol] 14.1 g/dL 13.0-16.5 [facility] Immature granulocytes/100 WB C Auto (Bld)Ordered By: Marino Holguin on 12-27-2024 Immature granulocytes/100 WBC (Bld) 0.300 % 0.0-0.9 [facility] Comment on above: IG% - Immature Granu locytes (promyelocytes, myelocytes and metamyelocytes) > 1% indicates that a LEFT SHIFT is Present. Laboratory - Chemistry and C hemistry - challengeOrdered By: Marino Holguin on 12-27-2024 AST [Catalytic activity/Vol] 50 U/L High <38 [facility] MCV (mean corpuscular volume ) determinationOrdered By: Marino Holguin on 12-27-2024 MCV (RBC) [Entitic vol] 103.5 fL High 80-94 [facility] Mean corpuscular hemoglobin (MCH) determinationOrdered By: Marinophilippe Holguin on 12-27-2024 MCH (RBC) [Entitic mass] 35.7 pg High 27.0-32.0 [facility] Mean corpuscular hemoglobin concentration (MCHC) determinationOrdered By: Marino Holguin on 12-27-2024 MCHC (RBC) [Mass/Vol] 34.5 g/dL 32-36 [facility] Mean platelet volume determi nationOrdered By: Marino Holguin on 12-27-2024 Platelet mean volume (Bld) [Entitic vol] 9.7 fL 6.2-12.0 [facility] Measurement, pHOrdered By: Michael Holguin on 12-27-2024 pH (Unsp spec) 7.43 [pH] 7.35-7.45 [facility] Microbial respiratory cultur eOrdered By: Marino Holguin on 12-27-2024 Microorganism identified Cx Nom (Unsp spec) or Staphylococcus aureus isolated. [facility] Monocyte percentageOrdered B y: Marino Holguin on 12-27-2024 Monocytes/100 WBC (Bld) 11.2 % High 0-10 [facility] Neutrophil percentageOrdered By: Marinophilippe Hogluin on 12-27-2024 Neutrophils/100 WBC (Bld) 67.1 % 47-70 [facility] No Panel InformationOrdered By: Marino Holguin on 12-27-2024 Bedside Blood Gas PEEP 5 [facility] Blood Gas Respiration Rate 14 [facility] Blood Gas Sample Site L Radial [facility] Blood Gas Specimen Type ART [facility] Blood Gas Tidal Volume 500.0 mL [facility] Blood Gas Vent Mode AC [place] er [facility] Delivery Device Adult Vent [facility] Nucleated red blood cell per centageOrdered By: Marino Holguin on 12-27-2024 Nucleated RBC/100 WBC (Bld) [Ratio] 0 % 0-5 [facility] Platelet countOrdered By: Jake Holguin on 12-27-2024 Platelets (Bld) [#/Vol] 200 10*3/uL 150-450 [facility] Potassium measurement (mass/ volume)Ordered By: Marino Holguin on 12-27-2024 Potassium (Unsp spec) [Mass/Vol] 4.7 mmol/L 3.3-5.1 [facility] RBC Auto (Bld) [#/Vol]Ordere d By: Marino Holguin on 12-27-2024 RBC (Bld) [#/Vol] 3.95 10*6/uL Low 4.6-6.2 [place] Serum creatinine measurement (mass/volume)Ordered By: Marino Holguin on 12-27-2024 Creatinine [Mass/Vol] 0.72 mg/dL 0.70-1.20 [facility] Serum globulin measurementOr dered By: Marino Holguin 12-27-2024 Globulin (S) [Mass/Vol] 3.5 g/dL 2.2-4.2 [facility] Serum glucose measurement (m ass/volume)Ordered By: Marino Holguin 12-27-2024 Glucose [Mass/Vol] 95 mg/dL 70-99 [facility] Serum or plasma alanine guevara otransferase (ALT) measurementOrdered By: Marino Holguin 12-27-2024 ALT [Catalytic activity/Vol] 34 U/L <47 [facility] Serum or plasma albumin reid urement (mass/volume)Ordered By: Marino Holguin on 12-27-2024 Albumin [Mass/Vol] 4.0 g/dL 3.4-4.8 [facility] Serum or plasma albumin/glob ulin mass ratioOrdered By: Marinophilippe Holguin on 12-27-2024 Albumin/Globulin [Mass ratio] 1.1 {ratio} 0.9-2.4 [facility] Serum or plasma alkaline adelfo sphatase measurementOrdered By: Marinophilippe Holguin on 06-06-2025 ALP [Catalytic activity/Vol] 151 U/L High 40-129 [facility] Serum or plasma calcium reid urement (mass/volume)Ordered By: Marino Holguin on 12-27-2024 Calcium [Mass/Vol] 9.4 mg/dL 7.6-11.0 [facility] Serum or plasma creatine kin ase activityOrdered By: Marinophilippe Holguin on 12-27-2024 CK [Catalytic activity/Vol] 120 U/L 24-195 [facility] Serum or plasma functional c omplement C1 esterase inhibitor detectionOrdered By: Marino Holguin on 12-27-2024 Complement C1 esterase inhibitor.functional Ql 102 . [facility] Comment on above: Result Units: %mean normal Abnormal <41 Equivocal 41 - 67 Normal >67Performed at: [facility] [id number] Director: Zafar Browne MD, Phone: [phone] Serum or plasma urea nitroge n measurement (mass/volume)Ordered By: Marino Holguin on 12-27-2024 Urea nitrogen [Mass/Vol] 10 mg/dL 4-19 [facility] Sodium levelOrdered By: Marinophilippe Holguin on 12-27-2024 Sodium [Moles/Vol] 139 mmol/L 133-145 [facility] Total carbon dioxide measure mentOrdered By: Marino Holguin on 12-27-2024 CO2 [Moles/Vol] 26 mmol/L [facility] Total proteinOrdered By: Marino Holguin on 12-27-2024 Protein [Mass/Vol] 7.4 g/dL 5.9-8.4 [facility] Triglycerideson 12-27-2024 Triglyceride [Mass/Vol] 131 mg/dL Normal [facility] Comment on above: Order Comment: Comme nts: DC when propofol is d/c'dDC when propofol is d/c'd Result Comment: The drugs N-Acetylcysteine and Metamizole may falsely depress this assay. Normal range: <150 mg/dL Borderline High: 150-199 mg/dL High: 200-499 mg/dL Very High: >500 mg/dL Performed By: #### L 9000.0800 #### [facility] [address] [place], [address] Triglycerides measurementOrd ered By: Marino Holguin on 12-27-2024 Triglyceride [Mass/Vol] 131 mg/dL <199 [facility] Comment on above: The drugs N-Acetylcy steine and Metamizole may falsely depress this assay. Normal range: <150 mg/dLBorderline High: 150-199 mg/dLHigh: 200-499 mg/dLVery High: >500 mg/dL White blood cell (WBC) count Ordered By: Marino Holguin on 12-27-2024 WBC (Bld) [#/Vol] 7.5 10*3/uL 4.4-11.0 [facility] CNOVon 12-23-2024 CNOV Office Visit (JOSE JUAN ) -- NAZARIO HUTTON ([id number]) 1950 M Date Time Provider Department 12/23/24 2:00 PM PATRIA KHANNA JR During your visit today, we recorded the following information about you: Pulse Respiration Blood pressure Weight 68/minute 18/minute 128/82 94.4 kg Patria Khanna Jr., MD 12/23/2024 5:47 PM Signed ESTABLISHED PATIENT VISIT CHIEF COMPLAINT: Follow Up HISTORY OF PRESENT ILLNESS: Nazario Matiaschetanbob is a 74 year old male, with a PMH significant for and per last office visit note of 08/30/24: 1. Neuropathy, idiopathic - ICD9: 355.9, ICD10: G60.9 (primary diagnosis) 2. Abnormal SPEP - ICD9: 790.99, ICD10: R77.8 3. Positive GALLO (antinuclear antibody) - ICD9: 795.79, ICD10: R76.8 4. Abnormality of gait - ICD9: 781.2, ICD10: R26.9 5. Numbness - ICD9: 782.0, ICD10: R20.0 Patient with overall stable neuro exam still showing sensory deficits in stocking-glove pattern including features of small fiber > large fiber. Etiology uncertain with extensive workup. That said SPEP abnml as above as was + GALLO. Will repeat SPEP with kappa chains at this time. Will also refer to Rheumatology regarding opinion of + GALLO and other + labs on reflex. In meantime, d/w pt possible PT, and states that he would do so if he was falling but at present he feels he does not need it. As for numbness, will place on trial of gabapentin 300mg BID. SE and ADRs d/w pt. Note renal function normal. Encouraged exercise. Follow up 3 months or sooner prn. Note MRI brain and CTA head and neck reviewed with pt and as above, without evidence of cause of symptoms. Rheum workup unremarkable and per patient, Dr. Roy will continue to monitor. No osteolytic lesions. To follow up in 6 weeks. As for neuropathy, symptoms unchanged. States discomfort more frequent and prolonged. Not daily. States before was couple times per month and now few episodes per week. No coloration changes. No temp changes. He is not sure if gabapentin helped. States he did run out of the gabapentin and did not get it refilled immediately. Continues to drink ETOH - now stating couple beers per day. States was on B12 supplement but now off it for a couple month. Latest Reference Range AND Units 04/20/23 13:23 10/17/23 15:43 04/04/24 12:21 09/25/24 14:51 10/30/24 11:03 Vitamin B12 232 - 1,245 pg/mL 244 896 905 1,008 950 Feels tylenol can help discomfort in feet. Symptoms usually worst in the AM. 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 REVIEW OF SYSTEMS GENERAL:No weight loss, malaise or fevers. HEENT:Negative for frequent or significant headaches, No changes in hearing or vision, no nose bleeds or other nasal problems NECK:Negative for lumps, goiter, pain and significant neck swelling RESPIRATORY: Negative for cough, wheezing or shortness of breath. CARDIOVASCULAR: Negative for chest pain, leg swelling or palpitations. GASTROINTESTINAL: Negative for abdominal discomfort, blood in stools or black stools or change in bowel habits GENITOURINARY: No history of dysuria, frequency or incontinence MUSCULOSKELETAL: Negative for joint pain or swelling, back pain or muscle pain. NEUROLOGIC: See HPI. SKIN:Negative for lesions, rash, and itching. HEMATOLOGIC/LYMPHATIC/IMMU NOLOGIC:Negative for prolonged bleeding, bruising easily or swollen nodes. ENDOCRINE: Negative for cold or heat intolerance, polyuria, polydipsia and goiter. The remainder of the ROS was reviewed and is negative. LAB/IMAGING: Those performed since patient's last visit have been reviewed. WBC (k/uL) Date Value 10/30/2024 6.58 RBC (m/uL) Date Value 10/30/2024 4.05 (L) Hemoglobin (g/dL) Date Value 10/30/2024 14.0 Hematocrit (%) Date Value 10/30/2024 41.9 MCV (fL) Date Value 10/30/2024 103.5 (H) MCH (pg) Date Value 10/30/2024 34.6 (H) MCHC (g/dL) Date Value 10/30/2024 33.4 RDW-CV (%) Date Value 10/30/2024 13.5 Platelet Count (k/uL) Date Value 10/30/2024 208 MPV (fL) Date Value 10/30/2024 10.4 Glucose (mg/dL) Date Value 10/30/2024 148 (H) BUN (mg/dL) Date Value 10/30/2024 12 Creatinine (mg/dL) Date Value 10/30/2024 0.67 (L) Sodium (mmol/L) Date Value 10/30/2024 139 Potassium (mmol/L) Date Value 10/30/2024 4.7 Chloride (mmol/L) Date Value 10/30/2024 104 CO2 (mmol/L) Date Value 10/30/2024 22 Protein, Total (g/dL) Date Value 10/30/2024 7.5 Albumin (g/dL) Date Value 10/30/2024 4.3 Calcium, Total (mg/dL) Date Value 10/30/2024 9.9 Alkaline Phosphatase (U/L) Date Value 10/30/2024 145 (H) Bilirubin, Total (mg/dL) Date Value 10/30/2024 0.8 AST (U/L) Date Value 10/30/2024 51 (H) ALT (U/L) Date Value 10/30/2024 38 GALLO (no units) Date Value 01/02/2024 Positive (A) SSA Antibody IgG (AI) Date Value 01/02/2024 <0.2 SSB Antibody (AI) Davin (more content not included)... Normal [facility] Vit B12 SerPl-mCncon 025 Cobalamin (Vitamin B12) [Mass/Vol] 451 pg/mL Normal 232-1245 [facility] Comment on above: Order Comment: Speci men Type: BLOOD SPECIMEN Ordering Facility: [facility] Address: [address] [place] [address] Performed By: #### C OPPER #### 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 Industrial Editor: DULCE Transcribe Date/Time: Nov 07 2024 5:22A Dictated by : LESTER LOPES MD This examination was interpreted and the report reviewed and electronically signed by: LESTER LOPES MD on Nov 07 2024 5:23AM [facility] DIVISION OF RADIOLOGY * * *Final Report* * * DATE OF EXAM: Nov 06 2024 11:52AM U 1028 - US SCREENING AAA / PROCEDURE REASON: Screening for abdominal aortic aneurysm * * * * Physician Interpretation * * * * EXAMINATION: SCREENING ABDOMINAL AORTA ULTRASOUND HISTORY: Screening evaluation for abdominal aortic aneurysm. Advanced age. TECHNIQUE: Sonography of the abdominal aorta was performed. Images were obtained and stored in a permanent archive and interpreted remotely. MQ: USAOS_1 COMPARISON: CT abdomen dated 08/28/2023 RESULT: AORTA (AP x TV): Proximal: 2.2 cm x 2.6 cm Mid (level of renal arteries): 2.4 cm x 2.5 cm Distal:2.0 cm x 2.1 cm Common Iliac Arteries (AP x TV): Right:1.5 cm x 1.4 cm Left: 1.4 cm x 1.4 cm Atherosclerotic plaque: present DIVISION OF RADIOLOGY Provider, [facility] Jose Juan [facility] - 11/07/2024 * * *Final Report* * * DATE OF EXAM: Nov 06 2024 11:52AM [facility] 1028 - US SCREENING AAA / PROCEDURE REASON: Screening for abdominal aortic aneurysm * * * * Physician Interpretation * * * * EXAMINATION: SCREENING ABDOMINAL AORTA ULTRASOUND HISTORY: Screening evaluation for abdominal aortic aneurysm. Advanced age. TECHNIQUE: Sonography of the abdominal aorta was performed. Images were obtained and stored in a permanent archive and interpreted remotely. 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 Industrial Editor: [facility]ITAL[facility] Transcribe Date/Time: Nov 07 2024 5:22A Dictated by : LESTER LOPES MD This examination was interpreted and the report reviewed and electronically signed by: LESTER LOPES MD on Nov 07 2024 5:23AM EST [facility] US Abdominal Aorta for michael Strattonered By: [facility] Provider on 11-07-2024 [facility] US Abdominal Aorta for michael erickson 11-06-2024 Radiology Study observation (narrative) [facility] US SCREENING AAAon US SCREENING AAA * * *Final Report* * * DATE OF EXAM: Nov 06 2024 11:52AM [facility] 1028 - US SCREENING AAA / PROCEDURE REASON: Screening for abdominal aortic aneurysm * * * * Physician Interpretation * * * * EXAMINATION: SCREENING ABDOMINAL AORTA ULTRASOUND HISTORY: Screening evaluation for abdominal aortic aneurysm. Advanced age. TECHNIQUE: Sonography of the abdominal aorta was performed. Images were obtained and stored in a permanent archive and interpreted remotely. MQ: USAOS_1 COMPARISON: CT abdomen dated 08/28/2023 RESULT: AORTA (AP x TV): Proximal: 2.2 cm x 2.6 cm Mid (level of renal arteries): 2.4 cm x 2.5 cm Distal:2.0 cm x 2.1 cm Common Iliac Arteries (AP x TV): Right:1.5 cm x 1.4 cm Left: 1.4 cm x 1.4 cm Atherosclerotic plaque: present IMPRESSION: 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 Industrial Editor: DULCE Transcribe Date/Time: Nov 07 2024 5:22A Dictated by : LESTER OLPES MD This examination was interpreted and the report reviewed and electronically signed by: LESTER LOPES MD on Nov 07 2024 5:23AM EST [id number] Normal [facility] Absolute lymphocyte countOrd ered By: Shubham Blanco on 11-05-2024 Lymphocytes Auto (Unsp spec) [#/Vol] 0.68 10*3/uL Low 0.83-4.51 [facility] Absolute neutrophil countOrd ered By: Shubham Blanco on 11-05-2024 Neutrophils (Bld) [#/Vol] 5.6 10*3/uL 2.0-7.7 [facility] Ammoniaon 11-05-2024 Ammonia (P) [Moles/Vol] 35.6 umol/L Normal 16-60 [facility] Comment on above: Performed By: #### L 3400.5105, L3200.1600, L503.7505, L509.7001 #### [facility] [address] [facility] [address] [place], [address] Anion gap in Serum or Plasma Ordered By: Shubham Blanco on 11-05-2024 Anion gap [Moles/Vol] 11 mmol/L -15 [facility] Automated lymphocyte count a s percentage of total leukocytesOrdered By: Shubham Blanco on 11-05-2024 Lymphocytes/100 WBC Auto (Unsp spec) 8.4 % Low 19-41 [facility] BUN/creatinine ratioOrdered By: Shubham Blanco on 11-05-2024 Urea nitrogen/Creatinine [Mass ratio] 19.6 mg/mg 10-20 [facility] Basophil percentageOrdered B y: Shubham Blanco on 11-05-2024 Basophils/100 WBC (Bld) 0.4 % 0-1 [facility] Bilirubin, totalOrdered By: Shubham Blanco on 11-05-2024 Bilirubin [Mass/Vol] 0.89 mg/dL 0.00-1.30 [facility] CBC W/Diff, Automatedon 10-22 Absolute Lymph 0.68 X10 3/uL Low 0.83-4.51 [facility] Comment on above: Performed By: #### L 3400.5105, L3200.1600, L503.7505, L509.7001 #### [facility] [address] [place], [address] Absolute Neut 5.6 X10 3/uL Normal 2.0-7.7 [facility] Comment on above: Performed By: #### L 3400.5105, L3200.1600, L503.7505, L509.7001 #### [facility] [address] [place], [address] Basophils/100 WBC (Bld) 0.4 % Normal 0-1 [facility] Comment on above: Performed By: #### L 3400.5105, L3200.1600, L503.7505, L509.7001 #### [facility] [address] [place], [address] Eosinophils/100 WBC (Bld) 7.3 % High 0-5 [facility] Comment on above: Performed By: #### L 3400.5105, L3200.1600, L503.7505, L509.7001 #### [facility] [address] [place], [address] Erythrocyte distribution width (RBC) [Ratio] 13.6 % Normal 11.6-14.6 [facility] Comment on above: Performed By: #### L 3400.5105, L3200.1600, L503.7505, L509.7001 #### [facility] [address] [place], [address] Hematocrit (Bld) [Volume fraction] 37.7 % Low 40-54 [facility] Comment on above: Performed By: #### L 3400.5105, L3200.1600, L503.7505, L509.7001 #### [facility] [address] [place], [address] Hemoglobin (Bld) [Mass/Vol] 13.2 g/dL Normal 13.0-16.5 [facility] Comment on above: Performed By: #### L 3400.5105, L3200.1600, L503.7505, L509.7001 #### [facility] [address] [place], [address] IG% 0.100 Normal 0.0-0.9 [facility] Comment on above: Result Comment: IG% - Immature Granulocytes (promyelocytes, myelocytes and metamyelocytes) > 1% indicates that a LEFT SHIFT is Present. Performed By: #### L 3400.5105, L3200.1600, L503.7505, L509.7001 #### [facility] [address] [place], [address] Lymphocytes/100 WBC (Bld) 8.4 % Low 19-41 [facility] Comment on above: Performed By: #### L 3400.5105, L3200.1600, L503.7505, L509.7001 #### [facility] [address], [address] MCH (RBC) [Entitic mass] 35.3 pg High 27.0-32.0 [facility] Comment on above: Performed By: #### L 3400.5105, L3200.1600, L503.7505, L509.7001 #### [facility] [address] [place], [address] MCHC (RBC) [Mass/Vol] 35.0 g/dL Normal 32-36 [facility] Comment on above: Performed By: #### L 3400.5105, L3200.1600, L503.7505, L509.7001 #### [facility] [address] [place], [address] MCV (RBC) [Entitic vol] 100.8 fL High 80-94 [facility] Comment on above: Performed By: #### L 3400.5105, L3200.1600, L503.7505, L509.7001 #### [facility] [address] [place], [address] Monocytes/100 WBC (Bld) 15.3 % High 0-10 [facility] Comment on above: Performed By: #### L 3400.5105, L3200.1600, L503.7505, L509.7001 #### [facility] [address] [place], [address] Neutrophils/100 WBC (Bld) 68.5 % Normal 47-70 [facility] Comment on above: Performed By: #### L 3400.5105, L3200.1600, L503.7505, L509.7001 #### [facility] [address] [place], [address] Nucleated RBC (Bld) [#/Vol] 0 10*3/uL Normal 0-5 [facility] Comment on above: Performed By: #### L 3400.5105, L3200.1600, L503.7505, L509.7001 #### [facility] [address] [place], [address] Platelet mean volume (Bld) [Entitic vol] 9.7 fL Normal 6.2-12.0 [facility] Comment on above: Performed By: #### L 3400.5105, L3200.1600, L503.7505, L509.7001 #### [facility] [address] [place], [address] Platelets (Bld) [#/Vol] 239 10*3/uL Normal 150-450 [facility] Comment on above: Performed By: #### L 3400.5105, L3200.1600, L503.7505, L509.7001 #### [facility] [address] [place], [address] RBC (Bld) [#/Vol] 3.74 10*6/uL Low 4.6-6.2 [place] Comment on above: Performed By: #### L 3400.5105, L3200.1600, L503.7505, L509.7001 #### [facility] [address] [place], [address] RDW SD 50.2 fl High 35.1-43.9 [facility] Comment on above: Performed By: #### L 3400.5105, L3200.1600, L503.7505, L509.7001 #### [facility] [address] [place], [address] WBC (Bld) [#/Vol] 8.1 10*3/uL Normal 4.4-11.0 [facility] Comment on above: Performed By: #### L 3400.5105, L3200.1600, L503.7505, L509.7001 #### [facility] [address] [place], [address] CRPon 11-05-2024 C-REACTIVE PROT 6.19 mg/L High 0.0-3.0 [facility] Comment on above: Performed By: #### L 3400.5105, L3200.1600, L503.7505, L509.7001 #### [facility] [address] [place], [address] CRP [Mass/Vol]Ordered By: Tessa Blanco on 11-05-2024 C-Reactive Protein Extended Range 6.19 mg/L High 0.0-3.0 [facility] Calculated very low density lipoprotein (VLDL) cholesterol measurementOrdered By: Shubham Blanco on 11-05-2024 Calculated very low density lipoprotein (VLDL) cholesterol measurement 19 mg/dL [facility] VLDL Cholesterol 19 mg/dL [facility] Carbon dioxide, total [Moles /volume] in Central venous bloodOrdered By: Shubham Blanco on 11-05-2024 CO2 [Moles/Vol] 21.0 mmol/L 21.0-32.0 [facility] Cardiology Visit Reporton Cardiology Visit Report [facility] [address] [place] [address] OFFICE VISIT Date of Service: 11/05/24 MR#: [id number] Acct: [id number] Name: NAZARIO HUTTON Rep #: [id number] : 1950 Provider: FAUSTO moore Age/Sex: 74/M Location: [facility] Status: Signed HPI HPI History of Present Illness Details: This is a 74-year-old man who presents to the office today for a cardiovascular follow-up visit. He has a history of coronary artery disease, who was admitted to the hospital with severe anemia chest pain and elevated cardiac enzymes. Cardiology was called to see him and he was evaluated and underwent a cardiac catheterization after being noted to have a non-ST elevation myocardial infarction and demonstrated left main coronary without significant disease, left anterior descending artery previously stented with mild in-stent stenosis and diffuse distal disease of approximately 80%, left circumflex artery which is totally occluded in the proximal segment and filling via left to left and right to left collaterals, the right coronary artery which was previously stented with diffuse disease moderate in-stent stenosis and right to left collaterals filling the distal LAD and circumflex artery. There was mild left ventricular dysfunction and hypokinesis of the anteroapical wall. Medical therapy was recommended and he appears to have done well he is taking iron pills as well as vitamin C for improvement in his iron absorption his hemoglobin has improved significantly. He tells me that he has three episodes of angioedema. His losartan was discontinued. He has seen an correctional corporal. From a cardiac standpoint, the patient is doing well. He denies any palpitations, chest pain, pressure or heaviness. He does acknowledge chest pressure and SOB when working outside in the yard. He denies Orthopnea, and PND. He does not have bleeding issues; no blood in urine, stool, or nosebleeds. He denies any decrease in energy level, myalgias, or claudication. He does not have edema, or sudden weight gain. He does have occasional lightheadedness. He denies dizziness, syncopal or near syncopal episodes, and headaches. 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: No Is patient in pain?: No Allergies losartan Allergy (Severe, Verified 11/05/24 13:10) Angioedema hydrochlorothiazide Allergy (Verified 11/05/24 13:10) Hives Medications ???Medication ???Instructions ???Recorded ???Confirmed ???Type allopurinol 100 mg tablet 100 mg PO DAILY GOUT 03/25/2210/22 History atorvastatin 80 mg tablet 80 mg PO DAILY CHOLESTEOL 03/25/22 11/05/24 History ezetimibe 10 mg tablet 10 mg PO DAILY CHOLESTEROL 3 11/05/24 History nitroglycerin 0.4 mg sublingual 0.4 mg sublingual UD PRN Chest Lima n 09/02/22 11/05/24 History tablet ascorbic acid (vitamin C) 500 mg 1,000 mg (2 x 500 mg) PO BIDCM 30 09/09/22 11/05/24 Rx tablet days #120 tabs cholecalciferol (vitamin D3) 125 125 mcg PO DAILY 09/01/23 11/05/24 History mcg (5,000 unit) capsule omega 3-dha 100 mg-epa 400 mg-fish cap PO 09/01/23 11/05/24 History oil 1,000 mg capsule vitamin B complex (B 1 tab PO DAILY 09/01/23 11/05/24 H istory Complex-Vitamin B12 tablet) isosorbide mononitrate 30 mg 30 mg PO QAM 04/15/24 11/05/24 His tory tablet,extended release 24 hr amlodipine 5 mg tablet 5 mg PO QDAY 09/19/24 11/05/24 His tory carvedilol 12.5 mg tablet 12.5 mg PO BID 09/19/24 11/05/24 H istory fexofenadine 180 mg tablet 180 mg PO QDAY 09/19/24 11/05/24 H istory fluoxetine 40 mg capsule 40 mg PO QDAY 09/19/24 11/05/24 Hi story gabapentin 300 mg capsule 300 mg PO BID 09/19/24 11/05/24 Hi story doxepin 25 mg capsule 25 mg PO QHS 11/05/24 11/05/24 His tory Ejection fraction %: 50 Have you fallen in the past year?: No [facility] Medical History (Reviewed 11/05/24 @ 13:04 by Estefany Thrasher SILVER SERVICE WAITER, SILVER SERVICE WAITER-C) High serum parathyroid hormone (PTH) Heart murmur Elevated alkaline phosphatase level Elevated PSA Diverticulosis AVM (arteriovenous malformation) of colon Vitamin D deficiency Gout Alcohol abuse Essential hypertension Chest pain Anxiety Depression Myocardial infarct Chest pain Acute blood loss anemia Bloody diarrhea Coronary artery disease Atherosclerotic heart disease of [place] coronary artery without angina pectoris ST elevation SD (STEMI) ( 11/29/21) Hyperlipidemia Hypertension Surgical History (Reviewed 11/05/24 @ 13:04 by Estefany Thrasher SILVER SERVICE WAITER, SILVER SERVICE WAITER-C) H/O colonoscopy (more content not included)... Normal [facility] Chloride assayOrdered By: Tessa Blanco on 11-05-2024 Chloride [Moles/Vol] 104 mmol/L 98-108 [facility] Comprehensive Metabolic Prof ilon 11-05-2024 Albumin [Mass/Vol] 4.1 g/dL Normal 3.4-4.8 [facility] Comment on above: Performed By: #### L 3400.5105, L3200.1600, L503.7505, L509.7001 #### [facility] [address] [place], [address] Albumin/Globulin [Mass ratio] 1.2 {ratio} Normal 0.9-2.4 [facility] Comment on above: Performed By: #### L 3400.5105, L3200.1600, L503.7505, L509.7001 #### [facility] [address] [place], [address] ALK PHOS 141 U/L High 40-129 [facility] Comment on above: Performed By: #### L 3400.5105, L3200.1600, L503.7505, L509.7001 #### [facility] [address] [place], [address] ALT [Catalytic activity/Vol] 32 U/L Normal <=46 [facility] Comment on above: Performed By: #### L 3400.5105, L3200.1600, L503.7505, L509.7001 #### [facility] [address] [place], [address] AST [Catalytic activity/Vol] 41 U/L High <=37 [facility] Comment on above: Performed By: #### L 3400.5105, L3200.1600, L503.7505, L509.7001 #### [facility] [address] [place], [address] Bilirubin [Mass/Vol] 0.89 mg/dL Normal 0.00-1.30 [facility] Comment on above: Performed By: #### L 3400.5105, L3200.1600, L503.7505, L509.7001 #### [facility] [address] [place], [address] BUN/CRE 19.6 RATIO Normal 10-20 [facility] Comment on above: Performed By: #### L 3400.5105, L3200.1600, L503.7505, L509.7001 #### [facility] [address] [place], [address] Calcium [Mass/Vol] 9.8 mg/dL Normal 7.6-11.0 [facility] Comment on above: Performed By: #### L 3400.5105, L3200.1600, L503.7505, L509.7001 #### [facility] [address] [place], [address] Chloride [Moles/Vol] 104 mmol/L Normal 98-108 [facility] Comment on above: Performed By: #### L 3400.5105, L3200.1600, L503.7505, L509.7001 #### [facility] [address] [place], [address] CO2 [Moles/Vol] 21.0 mmol/L Normal 21.0-32.0 [facility] Comment on above: Performed By: #### L 3400.5105, L3200.1600, L503.7505, L509.7001 #### [facility] [address] [place], [address] Creatinine [Mass/Vol] 0.80 mg/dL Normal 0.70-1.20 [facility] Comment on above: Performed By: #### L 3400.5105, L3200.1600, L503.7505, L509.7001 #### [facility] [address] [place], [address] GAP 11 Normal 5-15 [facility] Comment on above: Performed By: #### L 3400.5105, L3200.1600, L503.7505, L509.7001 #### [facility] [address] [place], [address] GFR/1.73 sq M.predicted among non-blacks MDRD (S/P/Bld) [Vol rate/Area] 93 mL/min/{1.73_m2} Normal >60 [facility] Comment on above: Result Comment: mL/m in/1.73m2 CKD-EPI Creatinine Equation (2020) Performed By: #### L 3400.5105, L3200.1600, L503.7505, L509.7001 #### [facility] [address] [place], [address] Globulin (S) [Mass/Vol] 3.4 g/dL Normal 2.2-4.2 [facility] Comment on above: Performed By: #### L 3400.5105, L3200.1600, L503.7505, L509.7001 #### [facility] [address] [place], [address] Glucose [Mass/Vol] 95 mg/dL Normal 70-99 [facility] Comment on above: Performed By: #### L 3400.5105, L3200.1600, L503.7505, L509.7001 #### [facility] [address] [place], [address] Potassium [Moles/Vol] 5.0 mmol/L Normal 3.3-5.1 [facility] Comment on above: Performed By: #### L 3400.5105, L3200.1600, L503.7505, L509.7001 #### [facility] [address] [place], [address] Sodium [Moles/Vol] 136 mmol/L Normal 133-145 [facility] Comment on above: Performed By: #### L 3400.5105, L3200.1600, L503.7505, L509.7001 #### [facility] [address] [place], [address] T PROT 7.4 g/dL Normal 5.9-8.4 [facility] Comment on above: Performed By: #### L 3400.5105, L3200.1600, L503.7505, L509.7001 #### [facility] [address] [place], [address] Urea nitrogen [Mass/Vol] 16 mg/dL Normal 4-19 [facility] Comment on above: Performed By: #### L 3400.5105, L3200.1600, L503.7505, L509.7001 #### [facility] Erika Hernandez [place], [place], [id number] Eosinophil percentageOrdered By: Shubham Blanco on 11-05-2024 Eosinophils/100 WBC (Bld) 7.3 % High 0-5 [facility] Erythrocyte distribution wid th (RBC) [Ratio]Ordered By: Shubham Blanco on 11-05-2024 Erythrocyte distribution width (RBC) [Entitic vol] 50.2 fL High 35.1-43.9 [facility] Erythrocyte distribution wid th ratioOrdered By: Shubham Blanco on 11-05-2024 Erythrocyte distribution width (RBC) [Ratio] 13.6 % 11.6-14.6 [facility] Erythrocyte distribution wid th standard deviationOrdered By: Shubham Blanco on 11-05-2024 Erythrocyte distribution width (RBC) [Ratio] 50.2 fl High 35.1-43.9 [facility] GFR/1.73 sq M.predicted judson g non-blacks MDRD (S/P/Bld) [Vol rate/Area]Ordered By: Shubham Blanco on 11-05-2024 Estimated GFR (MDRD) Non-Af Amer 93 >60 [facility] Comment on above: mL/min/1.73m2 CKD-EP I Creatinine Equation (2020) Glomerular filtration rate ( GFR) estimation/1.73 sq m using serum, plasma, or whole bOrdered By: Shubham Blanco on 11-05-2024 GFR/1.73 sq M.predicted among non-blacks MDRD (S/P/Bld) [Vol rate/Area] 93 mL/min/{1.73_m2} >60 [facility] Comment on above: mL/min/1.73m2 CKD-EP I Creatinine Equation (2020) Hematocrit Auto (Bld) [Volum e fraction]Ordered By: Shubham Blanco on 11-05-2024 Hematocrit (Bld) [Volume fraction] 37.7 % Low 40-54 [facility] Hemoglobin measurementOrdere d By: Shubham Blanco on 11-05-2024 Hemoglobin (Bld) [Mass/Vol] 13.2 g/dL 13.0-16.5 [facility] Immature granulocytes/100 WB C Auto (Bld)Ordered By: Shubham Blanco on 11-05-2024 Immature granulocytes/100 WBC (Bld) 0.100 % 0.0-0.9 [facility] Comment on above: IG% - Immature Granu locytes (promyelocytes, myelocytes and metamyelocytes) > 1% indicates that a LEFT SHIFT is Present. International normalized rat io (INR) calculationOrdered By: Shubham Blanco on 11-05-2024 INR Coag (Bld) [Relative time] 1.0 {INR} [facility] LDL calc ser/plasOrdered By: Shubham Blanco on 11-05-2024 Cholesterol in LDL [Mass/Vol] 85 mg/dL [facility] Comment on above: Wyrsafbtsk=675-064 m g/dL & Higher Cnwj=164 mg/dL or greater LDL Cholesterol, Calculated 85 mg/dL [facility] Comment on above: Dljqzaahsn=957-189 m g/dL & Higher Kjxj=496 mg/dL or greater Laboratory - Chemistry and C hemistry - challengeOrdered By: Shubham Blanco on 11-05-2024 AST [Catalytic activity/Vol] 41 U/L High <38 [facility] Lipid Profileon 11-05-2024 CHOL:HDL 2.92 Normal [facility] Comment on above: Performed By: #### L 3400.5105, L3200.1600, L503.7505, L509.7001 #### [facility] [address] [facility] [place], [place], [address] Cholesterol [Mass/Vol] 158 mg/dL Normal <=200 [facility] Comment on above: Result Comment: Chol esterol level, Desirable <200 mg/dL Borderline high cholesterol 200-239 mg/dL High cholesterol >=240 mg/dL Recommendations of the NCEP Adult Treatment Panel for the following risk-cutoff thresholds for the [place] population. Performed By: #### L 3400.5105, L3200.1600, L503.7505, L509.7001 #### [facility] [address] [place], [place], [address] Cholesterol in HDL [Mass/Vol] 54 mg/dL Normal [facility] Comment on above: Result Comment: Jayleen onal Cholesterol Education Program (NCEP) guidelines: <40 mg/dL: Low HDL-cholesterol (major risk factor for CHD) >= 60 mg/dL: High HDL-cholesterol (negative risk factor for CHD) HDL-cholesterol is affected by a number of factors, e.g. smoking, exercise, hormones, sex and age. Performed By: #### L 3400.5105, L3200.1600, L503.7505, L509.7001 #### [facility] [address] [place], [address] Cholesterol in LDL [Mass/Vol] 85 mg/dL Normal [facility] Comment on above: Result Comment: Bord hbeslk=220-170 mg/dL Higher Lxle=646 mg/dL or greater Performed By: #### L 3400.5105, L3200.1600, L503.7505, L509.7001 #### [facility] [address] [place], [address] Cholesterol in VLDL [Mass/Vol] 19 mg/dL Normal 5-40 [facility] Comment on above: Performed By: #### L 3400.5105, L3200.1600, L503.7505, L509.7001 #### [facility] [address] [place], [address] Triglyceride [Mass/Vol] 94 mg/dL Normal [facility] Comment on above: Result Comment: The drugs N-Acetylcysteine and Metamizole may falsely depress this assay. Normal range: <150 mg/dL Borderline High: 150-199 mg/dL High: 200-499 mg/dL Very High: >500 mg/dL Performed By: #### L 3400.5105, L3200.1600, L503.7505, L509.7001 #### [facility] [address] [place], [address] Lymphocytes Auto (Unsp spec) [#/Vol]Ordered By: Shubham Blanco on 11-05-2024 Lymphocytes (Bld) [#/Vol] 0.68 10*3/uL Low 0.83-4.51 [facility] Lymphocytes/100 WBC Auto (Un sp spec)Ordered By: Shubham Blanco on 11-05-2024 Lymphocytes/100 WBC (Bld) 8.4 % Low 19-41 [facility] MCV (mean corpuscular volume ) determinationOrdered By: Shubham Blanco on 11-05-2024 MCV (RBC) [Entitic vol] 100.8 fL High 80-94 [facility] Mean corpuscular hemoglobin (MCH) determinationOrdered By: Shubham Blanco on 11-05-2024 MCH (RBC) [Entitic mass] 35.3 pg High 27.0-32.0 [facility] Mean corpuscular hemoglobin concentration (MCHC) determinationOrdered By: Shubham Blanco on 11-05-2024 MCHC (RBC) [Mass/Vol] 35.0 g/dL 32-36 [facility] Mean platelet volume determi nationOrdered By: Shubham Blanco on 11-05-2024 Platelet mean volume (Bld) [Entitic vol] 9.7 fL 6.2-12.0 [facility] Monocyte percentageOrdered B y: Shubham Blanco on 11-05-2024 Monocytes/100 WBC (Bld) 15.3 % High 0-10 [facility] Neutrophil percentageOrdered By: Shubham Blanco on 11-05-2024 Neutrophils/100 WBC (Bld) 68.5 % 47-70 [facility] Nucleated red blood cell per centageOrdered By: Shubham Blanco on 11-05-2024 Nucleated RBC/100 WBC (Bld) [Ratio] 0 % 0-5 [facility] Platelet countOrdered By: Tessa Blanco on 11-05-2024 Platelets (Bld) [#/Vol] 239 10*3/uL 150-450 [facility] Potassium (Unsp spec) [Mass/ Vol]Ordered By: Shubham Blanco on 11-05-2024 Potassium [Moles/Vol] 5.0 mmol/L 3.3-5.1 [facility] Potassium measurement (mass/ volume)Ordered By: Shubham Blanco on 11-05-2024 Potassium (Unsp spec) [Mass/Vol] 5.0 mmol/L 3.3-5.1 [facility] Prothrombin Time w/INRon INR Coag (PPP) [Relative time] 1.0 {INR} Normal [facility] Comment on above: Performed By: #### L 3400.5105, L3200.1600, L503.7505, L509.7001 #### [facility] [address] [place], [address] PT Coag (PPP) [Time] 13.7 s Normal 11.7-14.9 [facility] Comment on above: Performed By: #### L 3400.5105, L3200.1600, L503.7505, L509.7001 #### [facility] [address] [place], [address] Prothrombin timeOrdered By: Shubham Blanco on 11-05-2024 PT Coag (PPP) [Time] 13.7 s 11.7-14.9 [facility] RBC Auto (Bld) [#/Vol]Ordere d By: Shubham Blanco on 11-05-2024 RBC (Bld) [#/Vol] 3.74 10*6/uL Low 4.6-6.2 [place] Scre[facility] total cholesterol/ high density lipoprotein (HDL) cholesterol ratioOrdered By: Shubham Blanco on 11-05-2024 Cholesterol.total/Cho lesterol in HDL [Mass ratio] 2.92 {ratio} [facility] Serum creatinine measurement (mass/volume)Ordered By: Shubham Blanco on 11-05-2024 Creatinine [Mass/Vol] 0.80 mg/dL 0.70-1.20 [facility] Serum globulin measurementOr dered By: Shubham Blanco on 11-05-2024 Globulin (S) [Mass/Vol] 3.4 g/dL 2.2-4.2 [facility] Serum glucose measurement (m ass/volume)Ordered By: Shubham Blanco on 11-05-2024 Glucose [Mass/Vol] 95 mg/dL 70-99 [facility] Serum or plasma C reactive p rotein measurement (mass/volume)Ordered By: Shubham Blanco on 11-05-2024 CRP [Mass/Vol] 6.19 mg/L High 0.0-3.0 [facility] Serum or plasma alanine guevara otransferase (ALT) measurementOrdered By: Shubham Blanco on 11-05-2024 ALT [Catalytic activity/Vol] 32 U/L <47 [facility] Serum or plasma albumin reid urement (mass/volume)Ordered By: Shubham Blanco on 11-05-2024 Albumin [Mass/Vol] 4.1 g/dL 3.4-4.8 [facility] Serum or plasma albumin/glob ulin mass ratioOrdered By: Shubham Blanco on 11-05-2024 Albumin/Globulin [Mass ratio] 1.2 {ratio} 0.9-2.4 [facility] Serum or plasma alkaline adelfo sphatase measurementOrdered By: Shubham Blanco 11-05-2024 ALP [Catalytic activity/Vol] 141 U/L High 40-129 [facility] Serum or plasma calcium reid urement (mass/volume)Ordered By: Shubham Blanco 11-05-2024 Calcium [Mass/Vol] 9.8 mg/dL 7.6-11.0 [facility] Serum or plasma cholesterol in HDL measurement (mass/volume)Ordered By: Shubham Blanco on 11-05-2024 Cholesterol in HDL [Mass/Vol] 54 mg/dL >40 [facility] Comment on above: National Cholesterol Education Program (NCEP) guidelines:<40 mg/dL: Low HDL-cholesterol (major risk factor for CHD)>= 60 mg/dL: High HDL-cholesterol (negative risk factor for CHD)HDL-cholesterol is affected by a number of factors, e.g. smoking, exercise, hormones, sex and age. Serum or plasma cholesterol measurement (mass/volume)Ordered By: Shubham Blanco 11-05-2024 Cholesterol [Mass/Vol] 158 mg/dL <201 [facility] Comment on above: Cholesterol level, D esirable <200 mg/dLBorderline high cholesterol 200-239 mg/dLHigh cholesterol >=240 mg/dLRecommendations of the NCEP Adult Treatment Panel for the following risk-cutoff thresholds for the [place] population. Serum or plasma urea nitroge n measurement (mass/volume)Ordered By: Shubham Blanco on 11-05-2024 Urea nitrogen [Mass/Vol] 16 mg/dL 4-19 [facility] Sodium levelOrdered By: Nilda Blanco on 11-05-2024 Sodium [Moles/Vol] 136 mmol/L 133-145 [facility] Total proteinOrdered By: Gennaro Blanco on 11-05-2024 Protein [Mass/Vol] 7.4 g/dL 5.9-8.4 [facility] Triglycerides measurementOrd ered By: Shubham Blanco on 11-05-2024 Triglyceride [Mass/Vol] 94 mg/dL <199 [facility] Comment on above: The drugs N-Acetylcy steine and Metamizole may falsely depress this assay. Normal range: <150 mg/dLBorderline High: 150-199 mg/dLHigh: 200-499 mg/dLVery High: >500 mg/dL Venous blood ammonia measure mentOrdered By: Shubham Blanco on 11-05-2024 Ammonia (P) [Moles/Vol] 35.6 umol/L 16-60 [facility] White blood cell (WBC) count Ordered By: Shubham Blanco on 11-05-2024 WBC (Bld) [#/Vol] 8.1 10*3/uL 4.4-11.0 [facility] CNOVon 11-01-2024 CNOV Office Visit (BRIGITTEPWS ) -- NAZARIO HUTTON ([id number]) 1950 M Date Time Provider Department 11/01/24 11:00 AM NI SAUCEDA During your visit today, we recorded the following information about you: Blood pressure Weight 129/73 93 kg Ni Sauceda APRN.CNP 11/01/2024 11:30 AM Signed Chief Complaint Patient presents with: 6 Month Exam HPI Nazario Irma Hutton is a 74 year old male who presents here today for Above Complaints.. Patient presents for routine follow up. Patient reports he is doing well and cardiology has him following up in 9 months. Past medical history, appointments, medications, allergies reviewed. Previous Medical History PAST MEDICAL HISTORY Diagnosis Date Advance directive discussed with patient 04/18/2022 Discussed 03/2022 Alcohol abuse 09/14/2022 6 beers a day since passed in early 2021 Alcoholic cirrhosis (HCC) 06/05/[address] Francis Ash 12/08/2014 AVM (arteriovenous malformation) of colon 09/14/[address] Chacon BENIGN HYPERTENSION 03/04/2008 Coronary artery disease due to lipid rich plaque 12/06/[address] Edwards , cardio [facility] Diverticulosis 09/05/2022 Elevated alkaline phosphatase level 09/03/2017 Elevated PSA 03/17/2021 Heart attack (HCC) 2021 Heart murmur, systolic 08/01/2018 High serum parathyroid hormone (PTH) 08/01/[address] elevation myocardial infarction (STEMI) 12/06/2021 Hyperuricemia 10/30/[address] 04/18/2022 DPA: Jae (son) Low serum vitamin B12 05/18/2023 Low vitamin D level 03/15/2021 Lumbosacral radiculopathy at L5 07/10/2023 Medicare annual wellness visit, subsequent 03/15/2021 Medicare Part B: Not able to find. 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 fexofenadine (MARII ALLERGY) 180 mg tablet Take 1 tablet by mouth once daily. carvedilol (COREG) 12.5 mg tablet Take 1 tablet by mouth two times a day with meals. carvedilol (COREG) 12.5 mg tablet Take 1 tablet by mouth two times a day with meals. FLUoxetine (PROZAC) 40 mg capsule Take 1 capsule by mouth once daily. allopurinol (ZYLOPRIM) 100 mg tablet TAKE 1 TABLET BY MOUTH ONCE DAILY. FOR GOUT. amLODIPine (NORVASC) 5 mg tablet Take 1 tablet by mouth once daily. ezetimibe (ZETIA) 10 mg tablet Take 1 tablet by mouth once daily. Blood Pressure Monitor 1 Each once daily. isosorbide mononitrate ER (IMDUR) 30 mg 24 hr tablet Take 1 tablet by mouth once daily. Per [facility] aspirin, enteric coated (ASPIRIN, ENTERIC COATED) 81 mg EC tablet Take 1 tablet by mouth once daily. multivitamin tablet Take 1 tablet by mouth once daily. nitroglycerin sublingual (NITROQUICK) 0.4 mg SL tablet Dissolve 1 tablet under the tongue every 5 minutes as needed for chest pain. docosahexaenoic acid/epa (FISH OIL ORAL) Take 1,000 mg by mouth once daily. cholecalciferol (VITAMIN D3) 5,000 unit tab Take 5,000 Units by mouth once daily. ascorbic acid, vitamin C, (VITAMIN C) 500 mg tablet Take 500 mg by mouth once daily. doxepin capsule 25 mg Take 1 capsule by mouth daily at bedtime. VITAMIN B COMPLEX (B COMPLEX 1 ORAL) Take 1 tablet by mouth once daily. diphenhydrAMINE (BENADRYL) 25 mg capsule Take 25 mg by mouth every 6 hours as needed. No current facility-administered medications on file prior to visit. Social History Social History Tobacco Use (more content not included)... Normal [facility] 25(OH)D3 SerPl-ncon 2024 25-hydroxyvitamin D3 [Mass/Vol] 38.5 ng/mL Normal 31.0-80.0 [facility] Comment on above: Order Comment: Speci men Type: BLOOD SPECIMEN Ordering Facility: [facility] Address: [address] [place] [address] Result Comment: Clas sification of 25 [place] Vitamin D status: Deficiency/Insufficiency: < or = 30 ng/ml. Sufficiency/Optimal Levels: 31-80 ng/mL Toxicity: > 100 ng/mL. Test performed by chemiluminescent immunoassay. Performed By: #### 2 2314-9, 5195-3, 61092-7 #### [facility] CLIA [id number] [address] [place] [address] [place] C3 SerPl-mCncon 10-30-2024 Complement C3 [Mass/Vol] 173 mg/dL High 86-166 [facility] Comment on above: Order Comment: Speci men Type: BLOOD SPECIMENOrdering Facility: [facility] Address: [address] [place] [address] Performed By: #### 1 988-5, 4481-9, 4498-2, 2132-03 ####[facility] [id number] [place] [address] [place] C4 SerPl-mCncon 10-30-2024 Complement C4 [Mass/Vol] 32 mg/dL Normal 13-46 [facility] Comment on above: Order Comment: Speci men Type: BLOOD SPECIMENOrdering Facility: [facility] Address: [address] [place] [address] Performed By: #### 1 988-5, 4485-9, 4498-2, 2132-03 ####[facility] [id number] [place] [address] [place] CBC W Auto Differential pane l (Bld)on 10-30-2024 Basophils (Bld) [#/Vol] 0.05 10*3/uL Normal <0.11 [facility] Comment on above: Order Comment: Speci men Type: BLOOD SPECIMEN Ordering Facility: [facility] Address: [address] [place] [address] Performed By: #### C OPPER #### [facility] CLIA [id number] [address] [place] [address] [place] Basophils/100 WBC (Bld) 0.8 % Normal [facility] Comment on above: Order Comment: Speci men Type: BLOOD SPECIMEN Ordering Facility: [facility] Address: [address] [place] [address] Performed By: #### C OPPER #### [facility] CLIA [id number] [address] [place] [address] [place] Differential cell count method Nom (Bld) Auto Normal [facility] Comment on above: Order Comment: Speci men Type: BLOOD SPECIMEN Ordering Facility: [facility] Address: [address] [place] [address] Performed By: #### C OPPER #### [facility] CLIA [id number] [address] [place] [address] [place] Eosinophils (Bld) [#/Vol] 0.46 10*3/uL High <0.46 [facility] Comment on above: Order Comment: Speci men Type: BLOOD SPECIMEN Ordering Facility: [facility] Address: [address] [place] [address] Performed By: #### C OPPER #### [facility] CLIA [id number] [address] [place] [address] [place] Eosinophils/100 WBC (Bld) 7.0 % Normal [facility] Comment on above: Order Comment: Speci men Type: BLOOD SPECIMEN Ordering Facility: [facility] Address: [address] [place] [address] Performed By: #### C OPPER #### [facility] CLIA [id number] [address] [place] [address] [place] Erythrocyte distribution width (RBC) [Ratio] 13.5 % Normal 11.5-15.0 [facility] Comment on above: Order Comment: Speci men Type: BLOOD SPECIMEN Ordering Facility: [facility] Address: [address] [place] [address] Performed By: #### C OPPER #### [facility] CLIA [id number] [address] [place] [address] [place] Hematocrit (Bld) [Volume fraction] 41.9 % Normal 39.0-51.0 [facility] Comment on above: Order Comment: Speci men Type: BLOOD SPECIMEN Ordering Facility: [facility] Address: [address] [place] [address] Performed By: #### C OPPER #### [facility] CLIA [id number] [address] [place] [address] [place] Hemoglobin (Bld) [Mass/Vol] 14.0 g/dL Normal 13.0-17.0 [facility] Comment on above: Order Comment: Speci men Type: BLOOD SPECIMEN Ordering Facility: [facility] Address: [address] [place] [address] Performed By: #### C OPPER #### [facility] CLIA [id number] [address] [place] [address] [place] Immature granulocytes (Bld) [#/Vol] 10*3/uL Normal <0.10 [facility] Comment on above: Order Comment: Speci men Type: BLOOD SPECIMEN Ordering Facility: [facility] Address: [address] [place] [address] Performed By: #### C OPPER #### [facility] CLIA [id number] [address] [place] [address] [place] Immature granulocytes/100 WBC (Bld) 0.3 % Normal [facility] Comment on above: Order Comment: Speci men Type: BLOOD SPECIMEN Ordering Facility: [facility] Address: [address] [place] [address] Performed By: #### C OPPER #### [facility] CLIA [id number] [address] [place] [address] [place] Lymphocytes (Bld) [#/Vol] 0.59 10*3/uL Low 1.00-4.00 [facility] Comment on above: Order Comment: Speci men Type: BLOOD SPECIMEN Ordering Facility: [facility] Address: [address] [place] [address] Performed By: #### C OPPER #### [facility] CLIA [id number] [address] [place] [address] [place] Lymphocytes/100 WBC (Bld) 9.0 % Normal [facility] Comment on above: Order Comment: Speci men Type: BLOOD SPECIMEN Ordering Facility: [facility] Address: [address] [place] [address] Performed By: #### C OPPER #### [facility] CLIA [id number] [address] [place] [address] [place] MCH (RBC) [Entitic mass] 34.6 pg High 26.0-34.0 [facility] Comment on above: Order Comment: Speci men Type: BLOOD SPECIMEN Ordering Facility: [facility] Address: [address] [place] [address] Performed By: #### C OPPER #### [facility] CLIA [id number] [address] [place] [address] [place] MCHC (RBC) [Mass/Vol] 33.4 g/dL Normal 30.5-36.0 [facility] Comment on above: Order Comment: Speci men Type: BLOOD SPECIMEN Ordering Facility: [facility] Address: [address] [place] [address] Performed By: #### C OPPER #### [facility] CLIA [id number] [address] [place] [address] [place] MCV (RBC) [Entitic vol] 103.5 fL High 80.0-100.0 [facility] Comment on above: Order Comment: Speci men Type: BLOOD SPECIMEN Ordering Facility: [facility] Address: [address] [place] [address] Performed By: #### C OPPER #### [facility] CLIA [id number] [address] [place] [address] [place] Monocytes (Bld) [#/Vol] 0.72 10*3/uL Normal <0.87 [facility] Comment on above: Order Comment: Speci men Type: BLOOD SPECIMEN Ordering Facility: [facility] Address: [address] [place] [address] Performed By: #### C OPPER #### [facility] CLIA [id number] [address] [place] [address] [place] Monocytes/100 WBC (Bld) 10.9 % Normal [facility] Comment on above: Order Comment: Speci men Type: BLOOD SPECIMEN Ordering Facility: [facility] Address: [address] [place] [address] Performed By: #### C OPPER #### [facility] CLIA [id number] [address] [place] [address] [place] Neutrophils (Bld) [#/Vol] 4.74 10*3/uL Normal 1.45-7.50 [facility] Comment on above: Order Comment: Speci men Type: BLOOD SPECIMEN Ordering Facility: [facility] Address: [address] [place] [address] Performed By: #### C OPPER #### [facility] CLIA [id number] [address] [place], [place] [id number] [place] Neutrophils/100 WBC (Bld) 72.0 % Normal [facility] Comment on above: Order Comment: Speci men Type: BLOOD SPECIMEN Ordering Facility: [facility] Address: [address] [place] [address] Performed By: #### C OPPER #### [facility] CLIA [id number] [address] [place] [address] [place] Nucleated RBC (Bld) [#/Vol] 10*3/uL Normal <0.01 [facility] Comment on above: Order Comment: Speci men Type: BLOOD SPECIMEN Ordering Facility: [facility] Address: [address] [place] [address] Performed By: #### C OPPER #### [facility] CLIA [id number] [address] [place] [address] [place] Nucleated RBC/100 WBC (Bld) [Ratio] 0.0 /100 WBC Normal [facility] Comment on above: Order Comment: Speci men Type: BLOOD SPECIMEN Ordering Facility: [facility] Address: [address] [place] [address] Performed By: #### C OPPER #### [facility] CLIA [id number] [address] [place] [address] [place] Platelet mean volume (Bld) [Entitic vol] 10.4 fL Normal 9.0-12.7 [facility] Comment on above: Order Comment: Speci men Type: BLOOD SPECIMEN Ordering Facility: [facility] Address: [address] [place] [address] Performed By: #### C OPPER #### [facility] CLIA [id number] [address] [place] [address] [place] Platelets (Bld) [#/Vol] 208 10*3/uL Normal 150-400 [facility] Comment on above: Order Comment: Speci men Type: BLOOD SPECIMEN Ordering Facility: [facility] Address: [address] [place] [address] Performed By: #### C OPPER #### [facility] CLIA [id number] [address] [place] [address] [place] RBC (Bld) [#/Vol] 4.05 10*6/uL Low 4.20-6.00 [facility] Comment on above: Order Comment: Speci men Type: BLOOD SPECIMEN Ordering Facility: [facility] Address: [address] [place] [address] Performed By: #### C OPPER #### [facility] CLIA [id number] [address] [place] [address] [place] WBC (Bld) [#/Vol] 6.58 10*3/uL Normal 3.70-11.00 [facility] Comment on above: Order Comment: Speci men Type: BLOOD SPECIMEN Ordering Facility: [facility] Address: [address] [place] [address] Performed By: #### C OPPER #### [facility] CLIA [id number] [address] [place] [address] [place] CRP SerPl-mCncon 10-30-2024 CRP [Mass/Vol] 0.6 mg/dL Normal <0.9 [facility] Comment on above: Order Comment: Speci men Type: BLOOD SPECIMENOrdering Facility: [facility] Address: [address] [place] [address] Performed By: #### 1 988-5, 4485-9, 4498-2, 2132-9 ####[facility] [id number] [place] [id number] [place] Comprehensive metabolic 2000 panelon 10-30-2024 Albumin [Mass/Vol] 4.3 g/dL Normal 3.9-4.9 [facility] Comment on above: Order Comment: Speci men Type: BLOOD SPECIMEN Ordering Facility: [facility] Address: [address] [place] [address] Performed By: #### 1 989-3 #### [facility] CLIA [id number] [address] [place] [address] [place] ALP [Catalytic activity/Vol] 145 U/L High 38-113 [facility] Comment on above: Order Comment: Speci men Type: BLOOD SPECIMEN Ordering Facility: [facility] Address: [address] [place] [address] Performed By: #### 1 989-3 #### [facility] CLIA [id number] [address] [place] [address] [place] ALT [Catalytic activity/Vol] 38 U/L Normal 10-54 [facility] Comment on above: Order Comment: Speci men Type: BLOOD SPECIMEN Ordering Facility: [facility] Address: [address] [place] [address] Performed By: #### 1 989-3 #### [facility] CLIA [id number] [address] [place] [address] [place] Anion gap [Moles/Vol] 13 mmol/L Normal 8-15 [facility] Comment on above: Order Comment: Speci men Type: BLOOD SPECIMEN Ordering Facility: [facility] Address: [address] [place] [address] Performed By: #### 1 989-3 #### [facility] CLIA [id number] [address] [place] [address] [place] AST [Catalytic activity/Vol] 51 U/L High 14-40 [facility] Comment on above: Order Comment: Speci men Type: BLOOD SPECIMEN Ordering Facility: [facility] Address: [address] [place] [address] Performed By: #### 1 989-3 #### [facility] CLIA [id number] [address] [place] [address] [place] Bilirubin [Mass/Vol] 0.8 mg/dL Normal 0.2-1.3 [facility] Comment on above: Order Comment: Speci men Type: BLOOD SPECIMEN Ordering Facility: [facility] Address: [address] [id number] Performed By: #### 1 989-3 #### [facility] CLIA [id number] [address] [place], [place] [address] [place] Calcium [Mass/Vol] 9.9 mg/dL Normal 8.5-10.2 [facility] Comment on above: Order Comment: Speci men Type: BLOOD SPECIMEN Ordering Facility: [facility] Address: [address] [place], [place] [address] Performed By: #### 1 989-3 #### [facility] CLIA [id number] [address] [place] [address] [place] Chloride [Moles/Vol] 104 mmol/L Normal 98-107 [facility] Comment on above: Order Comment: Speci men Type: BLOOD SPECIMEN Ordering Facility: [facility] Address: [address] [place] [address] Performed By: #### 1 989-3 #### [facility] CLIA [id number] [address] [place] [address] [place] CO2 [Moles/Vol] 22 mmol/L Normal 22-30 [facility] Comment on above: Order Comment: Speci men Type: BLOOD SPECIMEN Ordering Facility: [facility] Address: [address] [place], [place] [address] Performed By: #### 1 989-3 #### [facility] CLIA [id number] [address] [place], [place] [address] [place] Creatinine [Mass/Vol] 0.67 mg/dL Low 0.73-1.22 [facility] Comment on above: Order Comment: Speci men Type: BLOOD SPECIMEN Ordering Facility: [facility] Address: [address] [place], [place] [address] Performed By: #### 1 989-3 #### [facility] CLIA [id number] [address] [place], [place] [address] [place] Creatinine and Glomerular filtration rate.predicted panel (S/P/Bld) 98 mL/min/1.73m??? Normal >=60 [facility] Comment on above: Order Comment: Medina peck Type: BLOOD SPECIMEN Ordering Facility: [facility] Address: [address] [place] [address] Result Comment: Micaela mated Glomerular Filtration Rate (eGFR) is calculated using the 2020 CKD-EPI creatinine equation. This equation utilizes serum creatinine, sex, and age as parameters. The creatinine assay has traceable calibration to isotope dilution-mass spectrometry. Refer to KDIGO guidelines for clinical interpretation. In patients with unstable renal function, e.g. those with acute kidney injury, the eGFR may not accurately reflect actual GFR. Performed By: #### 1 989-3 #### [facility] CLIA [id number] [address] [place] [address] [place] Glucose [Mass/Vol] 148 mg/dL High 74-99 [facility] Comment on above: Order Comment: Medina peck Type: BLOOD SPECIMEN Ordering Facility: [facility] Address: [address] [place] [address] Result Comment: The [place] Diabetes Association (ADA) provides guidance for cutoff values for fasting glucose and random glucose. The ADA defines fasting as no caloric intake for at least 8 hours. Fasting plasma glucose results between 100 to 125 mg/dL indicate increased risk for diabetes (prediabetes). Fasting plasma glucose results greater than or equal to 126 mg/dL meet the criteria for diagnosis of diabetes. In the absence of unequivocal hyperglycemia, results should be confirmed by repeat testing. In a patient with classic symptoms of hyperglycemia or hyperglycemic crisis, random plasma glucose results greater than or equal to 200 mg/dL meet the criteria for diagnosis of diabetes. Reference: Standards of Medical Care in Diabetes 2016, [place] Diabetes Association. Diabetes Care. 2016.39(Suppl 1). Performed By: #### 1 989-3 #### [facility] CLIA [id number] [address] [place] [address] [place] Potassium [Moles/Vol] 4.7 mmol/L Normal 3.7-5.1 [facility] Comment on above: Order Comment: Speci men Type: BLOOD SPECIMEN Ordering Facility: [facility] Address: [address] [place] [address] Performed By: #### 1 989-3 #### [facility] CLIA [id number] [address] [place] [address] [place] Protein [Mass/Vol] 7.5 g/dL Normal 6.3-8.0 [facility] Comment on above: Order Comment: Speci men Type: BLOOD SPECIMEN Ordering Facility: [facility] Address: [address] [place] [address] Performed By: #### 1 989-3 #### [facility] CLIA [id number] [address] [place] [address] [place] Sodium [Moles/Vol] 139 mmol/L Normal 136-144 [facility] Comment on above: Order Comment: Speci men Type: BLOOD SPECIMEN Ordering Facility: [facility] Address: [address] [place] [address] Performed By: #### 1 989-3 #### [facility] CLIA [id number] [address] [place] [address] [place] Urea nitrogen [Mass/Vol] 12 mg/dL Normal 9-24 [facility] Comment on above: Order Comment: Speci men Type: BLOOD SPECIMEN Ordering Facility: [facility] Address: [address] [place] [address] Performed By: #### 1 989-3 #### [facility] CLIA [id number] [address] [place], [place] [address] [place] DNA ANTIBODY DS BLDon 2024 DNA ANTIBODY 357 IU/mL High <=200 [facility] Comment on above: Order Comment: Speci men Type: BLOOD SPECIMENOrdering Facility: [facility] Address: [address] [place] [address] Result Comment: Nega tive: <200 IU/mL Equivocal: 201-300 IU/mL Moderate Positive: 301-800 IU/mL Strong Positive: >801 IU/mL Performed By: #### D NAAB ####[facility] [id number] [place] [address] [place] DNA ANTIBODY QUALITATIVE INTERPRETATION Positive Abnormal Negative [facility] Comment on above: Order Comment: Speci men Type: BLOOD SPECIMENOrdering Facility: [facility] Address: [address] [place] [address] Performed By: #### D NAAB ####[facility] [id number] [place] [address] [place] ESR Westergren method (Bld) [Velocity]on 10-30-2024 ESR (Bld) [Velocity] 22 mm/h High 0-15 [facility] Comment on above: Order Comment: Speci men Type: BLOOD SPECIMEN Ordering Facility: [facility] Address: [address] [place] [address] Performed By: #### C OPPER #### [facility] CLIA [id number] [address] [place] [address] [place] Free PSA [Mass/Vol]on 2024 Free PSA/Total PSA [Mass fraction] 19 % Normal [facility] Comment on above: Order Comment: Speci men Type: BLOOD SPECIMEN Ordering Facility: [facility] Address: [address] [place] [address] Result Comment: Tota l and free PSA test methodology used is the Electrochemiluminescence Immunoassay by [employer]. Total or free PSA values by differing methodologies cannot be interchanged. The below table lists the probability of finding prostate cancer upon needle biopsy, for men 50 years or older and total PSA concentrations from 4.0-10.0 ng/mL. Results should be interpreted within the broader clinical context. Free PSA(%) 50-59 years 60-69 years >69 years <11 49.2% 57.5% 64.5% 11-18 26.9% 33.9% 40.8% 19-25 18.3% 23.9% 29.7% >25 9.1% 12.2% 15.8% Performed By: #### 1 989-3 #### [facility] CLIA [id number] [address] [place] [address] [place] Prostate specific Ag [Mass/Vol] 4.22 ng/mL High <2.60 [facility] Comment on above: Order Comment: Speci men Type: BLOOD SPECIMEN Ordering Facility: [facility] Address: [address] [place] [address] Result Comment: Tota l PSA test methodology used is the Electrochemiluminescence Immunoassay by [employer]. Total PSA values by differing methodologies cannot be interchanged. For an individual patient, the significance of a PSA level should be interpreted in a broad clinical context, including age, race, family history, digital rectal exam, prostate size, results of prior testing (prostate biopsy, free PSA, PCA3), and use of 5-alpha reductase inhibitors. Considering the high incidence of asymptomatic cancer in the general population that may not pose an ultimate risk to a patient, the decision to recommend urological evaluation or prostate biopsy should be individualized after consideration of all these factors. REFERENCE: Nilson Mancuso M.D., M.P.H., Lance Garber M.D., Ph.D., Patria Hartley M.D., Raquel Ahmadi, M.P.H., Lisseth Rush, Sc.D. Effect of Verification Bias on Screening for Prostate Cancer by Measurement of Prostatic Specific Antigen. N Engl J Med 2003,349:335-42. Performed By: #### 1 989-3 #### [facility] CLIA [id number] [address] [place] [address] [place] LIPID PANEL, NONFASTINGon Cholesterol [Mass/Vol] 182 mg/dL Normal <200 [facility] Comment on above: Order Comment: Speci men Type: BLOOD SPECIMEN Ordering Facility: [facility] Address: [address] [place] [address] Result Comment: <200 mg/dL, Desirable 200-239 mg/dL, Borderline high >239 mg/dL, High Performed By: #### 1 989-3 #### [facility] CLIA [id number] [facility] [place] [address] [place] HDL CHOLESTEROL, NF 46 mg/dL Normal >39 [facility] Comment on above: Order Comment: Medina liv Type: BLOOD SPECIMEN Ordering Facility: [facility] Address: [address] [place] [address] Result Comment: 40-5 9 mg/dL, Acceptable >59 mg/dL, High: Negative risk factor for coronary heart disease <40 mg/dL, Low: Positive risk factor for coronary heart disease Performed By: #### 1 989-3 #### [facility] CLIA [id number] [address] [place] [address] [facility] LDL CHOLESTEROL, NF 113 mg/dL High <100 [facility] Comment on above: Order Comment: Medina peck Type: BLOOD SPECIMEN Ordering Facility: [facility] Address: [address] [place] [address] Result Comment: <100 mg/dL, Optimal 100-129 mg/dL, Near optimal/above optimal 130-159 mg/dL, Borderline high 160-189 mg/dL, High >189 mg/dL, Very high Secondary prevention optimal LDL Cholesterol levels are recommended to be < 70 mg/dL Performed By: #### 1 989-3 #### [facility] CLIA [id number] [address] [place] [address] [place] LDL/HDL RATIO, NF 2.46 mg/dL Normal <2.54 [facility] Comment on above: Order Comment: [facility] Type: BLOOD SPECIMEN Ordering Facility: [facility] Address: [address] [place] [address] Result Comment: Rhonda barnes: 1. National Cholesterol Education Program ATP III Guideline At-A-Glance Quick Desk Reference: National Heart, Lung, and Blood [place]. National Institutes of Health. 2001: NIH Publication No. 01-3305. 2. An International Atherosclerosis Society position paper: global recommendations for the management of dyslipidemia: executive summary, Atherosclerosis. 2014: 232(2):410-413. Performed By: #### 1 989-3 #### [facility] CLIA [id number] [address] [place] [address] [place] NON HDL CHOL, NF 136 mg/dL High <130 [facility] Comment on above: Order Comment: Medina peck Type: BLOOD SPECIMEN Ordering Facility: [facility] Address: [address] [place] [address] Result Comment: <130 mg/dL, Optimal 130-159 mg/dL, Near optimal/above optimal 160-189 mg/dL, Borderline high 190-219 mg/dL, High >219 mg/dL, Very high Secondary prevention optimal non HDL Cholesterol levels are recommended to be <100 mg/dL Performed By: #### 1 989-3 #### [facility] CLIA [id number] [address] [place] [address] [place] T CHOL/HDL RATIO NF 3.96 mg/dL Normal <5.10 [facility] Comment on above: Order Comment: Medina peck Type: BLOOD SPECIMEN Ordering Facility: [facility] Address: [address] [place] [address] Performed By: #### 1 989-3 #### [facility] CLIA [id number] [address] [place] [address] [place] TRIGLYCERIDES, NF 113 mg/dL Normal <150 [facility] Comment on above: Order Comment: Medina peck Type: BLOOD SPECIMEN Ordering Facility: [facility] Address: [address] [place] [address] Result Comment: <150 mg/dL, Normal 150-199 mg/dL, Borderline high 200-499 mg/dL, High >499 mg/dL, Very high Performed By: #### 1 989-3 #### [facility] CLIA [id number] [address] [place] [address] [place] VLDL CHOLESTEROL, NF 23 mg/dL Normal <30 [facility] Comment on above: Order Comment: Speci men Type: BLOOD SPECIMEN Ordering Facility: [facility] Address: [address] [place] [address] Performed By: #### 1 989-3 #### [facility] CLIA [id number] [address] [place] [address] [place] Urate SerPl-mCncon Urate [Mass/Vol] 5.8 mg/dL Normal 4.0-8.1 [facility] Comment on above: Order Comment: Speci men Type: BLOOD SPECIMEN Ordering Facility: [facility] Address: [address] [place] [address] Performed By: #### 1 989-3 #### [facility] CLIA [id number] [address] [place] [address] [place] Urinalysis complete panel (U )on 10-30-2024 Bacteria LM.HPF (Urine sed) [#/Area] Negative Normal Negative [facility] Comment on above: Order Comment: Speci men Type: BLOOD SPECIMEN Ordering Facility: [facility] Address: [address] [place] [address] Performed By: #### 2 284-8, 4455-2, 2132-03 #### [facility] CLIA [id number] [address] [place] [address] [place] Bilirubin Ql (U) Negative Normal Negative [facility] Comment on above: Order Comment: Speci men Type: BLOOD SPECIMEN Ordering Facility: [facility] Address: [address] [place] [address] Performed By: #### 2 284-8, 3745-2, 9 #### [facility] CLIA [id number] [address] [place] [address] [place] CALCIUM OXALATE CRYSTALS (UA) Few Abnormal None Seen [facility] Comment on above: Order Comment: Speci men Type: BLOOD SPECIMEN Ordering Facility: [facility] Address: [address] [place] [address] Performed By: #### 2 284-8, 2885-2, 2132-03 #### [facility] CLIA [id number] [address] [place] Clarity (Unsp spec) Cloudy Abnormal Clear [facility] Comment on above: Order Comment: Speci men Type: BLOOD SPECIMEN Ordering Facility: [facility] Address: [address] [place] [address] Performed By: #### 2 284-8, 2885-2, 2132-03 #### [facility] CLIA [id number] [address] [place] Color (U) Dark Yellow Abnormal Yellow [facility] Comment on above: Order Comment: Speci men Type: BLOOD SPECIMEN Ordering Facility: [facility] Address: [address] [place] [address] Performed By: #### 2 284-8, 288-2, 2132-03 #### [facility] CLIA [id number] [address] [place] Epithelial cells LM.HPF (Urine sed) [#/Area] None Seen Normal [facility] Comment on above: Order Comment: Speci men Type: BLOOD SPECIMEN Ordering Facility: [facility] Address: [address] [place] [address] Performed By: #### 2 284-8, 288-2, 2132-03 #### [facility] CLIA [id number] [address] [place] [address] [place] Glucose Test strip (U) [Mass/Vol] Negative Normal Negative [facility] Comment on above: Order Comment: Speci men Type: BLOOD SPECIMEN Ordering Facility: [facility] Address: [address] [place] [address] Performed By: #### 2 284-8, 2885-2, 2132-03 #### [facility] CLIA [id number] [address] [place] [address] [place] Hemoglobin Ql (U) Negative Normal Negative [facility] Comment on above: Order Comment: Speci men Type: BLOOD SPECIMEN Ordering Facility: [facility] Address: [address] [place] [address] Performed By: #### 2 284-8, 2885-2, 2132-03 #### [facility] CLIA [id number] [address] [place] Hyaline casts (Urine sed) [#/Area] 4-10 /LPF Abnormal 0 /LPF [facility] Comment on above: Order Comment: Speci men Type: BLOOD SPECIMEN Ordering Facility: [facility] Address: [address] [place] [address] Performed By: #### 2 284-8, 2885-2, 2132-03 #### [facility] CLIA [id number] [address] [place] Ketones Ql (U) Trace Abnormal Negative [facility] Comment on above: Order Comment: Speci men Type: BLOOD SPECIMEN Ordering Facility: [facility] Address: [address] [place] [address] Performed By: #### 2 284-8, 288-2, 2132-03 #### [facility] CLIA [id number] [address] Leukocyte esterase Test strip Ql (U) 1+ Abnormal Negative [facility] Comment on above: Order Comment: Speci men Type: BLOOD SPECIMEN Ordering Facility: [facility] Address: [address] [place] [address] Performed By: #### 2 284-8, 288-2, 2132-03 #### [facility] CLIA [id number] 1 [place] [address] [place] Nitrite Ql (U) Negative Normal Negative [facility] Comment on above: Order Comment: Speci men Type: BLOOD SPECIMEN Ordering Facility: [facility] Address: [address] [place] [address] Performed By: #### 2 284-8, 2885-2, 2132-03 #### [facility] CLIA [id number] [address] [place] [address] [place] pH (U) 5.5 [pH] Normal <8.5 [facility] Comment on above: Order Comment: Speci men Type: BLOOD SPECIMEN Ordering Facility: [facility] Address: [address] [place] [address] Performed By: #### 2 284-8, 2885-2, 2132-03 #### [facility] CLIA [id number] [address] Protein (U) [Mass/Vol] 1+ Abnormal Negative [facility] Comment on above: Order Comment: Speci men Type: BLOOD SPECIMEN Ordering Facility: [facility] Address: [address] [place] [address] Performed By: #### 2 284-8, 2882, 2132-03 #### [facility] CLIA [id number] [address] [place] RBC LM.HPF (Urine sed) [#/Area] 6-10 /HPF Abnormal 0-2 /HPF [facility] Comment on above: Order Comment: Speci men Type: BLOOD SPECIMEN Ordering Facility: [facility] Address: [address] [place] [address] Performed By: #### 2 284-8, 288-2, 2132-03 #### [facility] CLIA [id number] [address] [place] Specific gravity (U) [Rel density] 1.019 Normal 1.005-1.030 [facility] Comment on above: Order Comment: Speci men Type: BLOOD SPECIMEN Ordering Facility: [facility] Address: [address] [place] [address] Performed By: #### 2 284-8, 288-2, 2132-03 #### [facility] CLIA [id number] [address] [place] Urobilinogen Ql (U) 1.0 EU/dL Normal 0.2-1.0 EU/dL [facility] Comment on above: Order Comment: Speci men Type: BLOOD SPECIMEN Ordering Facility: [facility] Address: [address] [id number] Performed By: #### 2 284-8, 2885-2, 9 #### [facility] CLIA [id number] [address] [place] WBC LM.HPF (Urine sed) [#/Area] 6-10 /HPF Abnormal 0-5 /HPF [facility] Comment on above: Order Comment: Speci men Type: BLOOD SPECIMEN Ordering Facility: [facility] Address: [address] [place] [address] Performed By: #### 2 284-8, 2885-2, 9 #### [facility] CLIA [id number] [address] [place] Vit B12 SerPl-mCncon 025 Cobalamin (Vitamin B12) [Mass/Vol] 950 pg/mL Normal 232-1245 [facility] Comment on above: Order Comment: Speci men Type: BLOOD SPECIMENOrdering Facility: [facility] Address: [address] [place], [place] [address] Performed By: #### 1 988-5, 4485-9, 4498-2, 9 ####[facility] [id number] [place] [id number] [place] CNOVSPon 10-23-2024 CNOVSP Visit (SP) Office (H EMAWS) -- NAZARIO HUTTON ([id number]) 1950 M Date Time Provider Department 10/23/24 11:10 AM STEPHANIE ROY During your visit today, we recorded the following information about you: Temperature Pulse Blood pressure Weight 98.6 degrees 83/minute 126/76 93.9 kg Stephanie Roy DO 10/23/2024 2:11 PM Signed Hematologic problem(s): 1) Monoclonal gammopathy. HPI: The patient is a 73 yo male with PMH as outlined below. CAD--SD PCI 2021. 07/2022--Lower GI bleed. Initial consultation: Intermittent numbness fingers and half of palm. Intermittent numbness feet that can extend to just above ankle. Two episodes of isolated tongue angioedema in the last 6 months. Attributed to losartan. Possibly connected to sertraline as well. He has been seen by allergy and immunology. Presents for ongoing oncologic management. Interim history: No progression of neuropathy. Has been going on several years. PAST MEDICAL HISTORY Diagnosis Date Advance directive discussed with patient 04/18/2022 Discussed 03/2022 Alcohol abuse 09/14/2022 6 beers a day since passed in early 2021 Alcoholic cirrhosis (HCC) 06/05/[address] Francis Ash 12/08/2014 AVM (arteriovenous malformation) of colon 09/14/[address] Chacon BENIGN HYPERTENSION 03/04/2008 Coronary artery disease due to lipid rich plaque 12/06/[address] Edwards , cardio [place] Diverticulosis 09/05/2022 Elevated alkaline phosphatase level 09/03/2017 Elevated PSA 03/17/2021 Heart attack (HCC) 2021 Heart murmur, systolic 08/01/2018 High serum parathyroid hormone (PTH) 08/01/[address] elevation myocardial infarction (STEMI) 12/06/2021 Hyperuricemia 10/30/[address] 04/18/2022 DPA: Jae (son) Low serum vitamin B12 05/18/2023 Low vitamin D level 03/15/2021 Lumbosacral radiculopathy at L5 07/10/2023 Medicare annual wellness visit, subsequent 03/15/2021 Medicare Part B: Not able to find. 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 Floyd, repeat 10 yrs REMV CATARACT EXTRACAP,INSERT LENS Bilateral 07/2022 gabapentin (NEURONTIN) 300 mg capsule Take 1 capsule by mouth two times a day for 90 days. fexofenadine (MARII ALLERGY) 180 mg tablet Take 1 tablet by mouth once daily. carvedilol (COREG) 12.5 mg tablet Take 1 tablet by mouth two times a day with meals. FLUoxetine (PROZAC) 40 mg capsule Take 1 capsule by mouth once daily. allopurinol (ZYLOPRIM) 100 mg tablet TAKE 1 TABLET BY MOUTH ONCE DAILY. FOR GOUT. amLODIPine (NORVASC) 5 mg tablet Take 1 tablet by mouth once daily. ezetimibe (ZETIA) 10 mg tablet Take 1 tablet by mouth once daily. isosorbide mononitrate ER (IMDUR) 30 mg 24 hr tablet Take 1 tablet by mouth once daily. Per [place] [facility] aspirin, enteric coated (ASPIRIN, ENTERIC COATED) 81 mg EC tablet Take 1 tablet by mouth once daily. multivitamin tablet Take 1 tablet by mouth once daily. nitroglycerin sublingual (NITROQUICK) 0.4 mg SL tablet Dissolve 1 tablet under the tongue every 5 minutes as needed for chest pain. docosahexaenoic acid/epa (FISH OIL ORAL) Take 1,000 mg by mouth once daily. cholecalciferol (VITAMIN D3) 5,000 unit tab Take 5,000 Units by mouth once daily. ascorbic acid, vitamin C, (VITAMIN C) 500 mg tablet Take 500 mg by mouth once daily. doxepin capsule 25 mg Take 1 capsule by mouth daily at bedtime. VITAMIN B COMPLEX (B COMPLEX 1 ORAL) Take 1 tablet by mouth once daily. diphenhydrAMINE (BENADRYL) 25 mg capsule Take 25 mg by mouth every 6 hours as needed. carvedilol (COREG) 12.5 mg tablet Take 1 tablet by mouth two times a day with meals. Blood Pressure Monitor 1 Each once daily. ALLERGIES Allergen Reactions Arb-Angiotensin Rec* Other: See Comments angioedema Sertraline Other: See Comments angioedema Hctz [Hydrochloroth* Unknown rash Social History Tobacco Use Smoking status: Former Types: Cigarettes Smokeless tobacco: Never Vaping Use Vaping status: Never Used Substance Use Topics Alcohol use: Yes Comment: 6 pack of beer a week on average Drug use: No FAMILY HISTORY Problem Relation Age of Onset Cancer Mother lung cancer Ischemic Heart Disease Father 53 Alzheimer's Disease No Family History Colon Cancer No Family History Prostate Cancer No Family History Breast Cancer No Family History Ovarian (more content not included)... Normal [facility] XR BONE SURVEY ROUTINEon XR BONE SURVEY ROUTINE * * *Final Report* * * DATE OF EXAM: Oct 23 2024 2:49PM WRX [id number] - XR BONE SURVEY ROUTINE / PROCEDURE REASON: Monoclonal gammopathy * * * * Physician Interpretation * * * * EXAM(s): XR BONE SURVEY ROUTINE..... HISTORY: 74 years old Clinical information: Monoclonal gammopathy some abnormal protein in blood, numbness in low back, legs and feet off and on is not diabetic TECHNIQUE: Images: Pelvis, dorsal spine, bilateral ribs, lateral cervical spine, lateral skull, lumbar spine, right and left humerus, right and left femur and hip, right and left tibia and fibula Comparison: None. RESULT: Findings: No osteolytic, osteosclerotic, or destructive lesions identified in any of the visualized bones. No rib lesions or fractures. Mild anterior wedging, T10. Lumbosacral degenerative changes associated with a dextroscoliotic curve, centered at L3-4. Degenerative disc disease, L1-2, 2-3, and 4-5, and L5-S1. Apophyseal joint sclerosis, L3-S1. No pedicle erosion. Multiple splenic calcified granulomas. 1.5 cm calcification right mid abdomen, below the kidney. Long bones intact. Visualized soft tissues unremarkable. Vascular calcification noted. IMPRESSION: Scattered degenerative changes most notably in the thoracolumbar spine. No osteolytic, osteosclerotic, or destructive bone lesions identified Industrial Editor: PSCB Transcribe Date/Time: Oct 29 2024 4:35P Dictated by : KAL PA MD This examination was interpreted and the report reviewed and electronically signed by: KAL PA MD on Oct 29 2024 4:41PM EST [id number] Normal [facility] Calcium.ionized [Moles/Vol]o n 03-31-2025 Calcium.ionized (Bld) [Mass/Vol] 1.25 mmol/L Normal 1.08-1.30 [facility] Comment on above: Order Comment: Speci men Type: BLOOD SPECIMEN Ordering Facility: [facility] Address: [address] [place] [address] Performed By: #### 2 284-8, 2885-2, 2131-9 #### [facility] CLIA [id number] [address] [id number] [place] Calcium.ionized adjusted to pH 7.4 (Bld) [Moles/Vol] 1.24 mmol/L Normal 1.08-1.30 [facility] Comment on above: Order Comment: Speci men Type: BLOOD SPECIMEN Ordering Facility: [facility] Address: [address] [place] [address] Performed By: #### 2 284-8, 2885-2, 9 #### [facility] CLIA [id number] 1 [place] [address] [place] Calculi, Urinary w / Photoon 10-21-2024 . Comment Normal . [facility] Comment on above: Result Comment: Perc entage (Represents the % composition) Performed By: #### L 3400.5105, L3200.1600, L503.7505, L509.7001 #### [facility] [address] [place], [address] 2,8 Dihydroxyad TNP Normal . [facility] Comment on above: Performed By: #### L 3400.5105, L3200.1600, L503.7505, L509.7001 #### [facility] [address] [place], [address] AMM ACID URATE TNP Normal . [facility] Comment on above: Performed By: #### L 3400.5105, L3200.1600, L503.7505, L509.7001 #### [facility] [address] [place], [address] Bilirubin Ql (U) TNP Normal . [facility] Comment on above: Performed By: #### L 3400.5105, L3200.1600, L503.7505, L509.7001 #### [facility] [address] [place], [address] CA BILIRUBINATE TNP Normal . [facility] Comment on above: Performed By: #### L 3400.5105, L3200.1600, L503.7505, L509.7001 #### [facility] [address] [place], [address] CA CARBONATE TNP Normal . [facility] Comment on above: Performed By: #### L 3400.5105, L3200.1600, L503.7505, L509.7001 #### [facility] [address] [place], [address] CA HYDROG PHOS TNP Normal . [facility] Comment on above: Performed By: #### L 3400.5105, L3200.1600, L503.7505, L509.7001 #### [facility] [address] [place], [address] CA OXAL DIHYDR TNP Normal . [facility] Comment on above: Performed By: #### L 3400.5105, L3200.1600, L503.7505, L509.7001 #### [facility] [address] [place], [address] CA OXAL MONOHYD 40 Normal . [facility] Comment on above: Performed By: #### L 3400.5105, L3200.1600, L503.7505, L509.7001 #### [facility] [address] [place], [address] CA Palmitate TNP Normal . [facility] Comment on above: Performed By: #### L 3400.5105, L3200.1600, L503.7505, L509.7001 #### [facility] [address] [place], [address] CA PHOS (hydro) TNP Normal . [facility] Comment on above: Performed By: #### L 3400.5105, L3200.1600, L503.7505, L509.7001 #### [facility] [address] [place], [address] CA PHOSPHATE TNP Normal . [facility] Comment on above: Performed By: #### L 3400.5105, L3200.1600, L503.7505, L509.7001 #### [facility] [address] [place], [address] CA Stearate TNP Normal . [facility] Comment on above: Performed By: #### L 3400.5105, L3200.1600, L503.7505, L509.7001 #### [facility] [address] [place], [address] CELL MATERIAL TNP Normal . [facility] Comment on above: Performed By: #### L 3400.5105, L3200.1600, L503.7505, L509.7001 #### [facility] [address] [place], [address] CHOLESTEROL TNP Normal . [facility] Comment on above: Performed By: #### L 3400.5105, L3200.1600, L503.7505, L509.7001 #### [facility] [address] [place], [address] Color (U) Brown Normal . [facility] Comment on above: Performed By: #### L 3400.5105, L3200.1600, L503.7505, L509.7001 #### [facility] [address] [place], [address] COMMENT TNP Normal . [facility] Comment on above: Performed By: #### L 3400.5105, L3200.1600, L503.7505, L509.7001 #### [facility] [address] [place], [place], [address] COMMENT Comment Normal . [facility] Comment on above: Result Comment: Calc ulus received wet. Wet calculi must be dried before analysis, which delays reporting of results. Leaving calculi wet (such as water, saline, blood, urine) may lead to changes in composition. Performed By: #### L 3400.5105, L3200.1600, L503.7505, L509.7001 #### [facility] [address] [place], [place], [address] Result Comment: Phys ician questions regarding Calculi Analysis contact [facility] at: [phone]. Result Comment: Calc tiffany report will follow via computer, mail or undercar specialist delivery. CYSTINE TNP Normal . [facility] Comment on above: Performed By: #### L 3400.5105, L3200.1600, L503.7505, L509.7001 #### [facility] [address] [place], [address] Disclaimer Comment Normal . [facility] Comment on above: Result Comment: This test was developed and its performance characteristics determined by [facility]. It has not been cleared or approved by the Food and Drug Administration. Performed at: [address] [id number] Manager [employer]: Jose Harris PhD, Phone: [phone] Performed By: #### L 3400.5105, L3200.1600, L503.7505, L509.7001 #### [facility] [address] [place], [place], [address] DRIED BLOOD TNP Normal . [facility] Comment on above: Performed By: #### L 3400.5105, L3200.1600, L503.7505, L509.7001 #### [facility] [address] [facility], [address] Drug/Metabolite TNP Normal . [facility] Comment on above: Performed By: #### L 3400.5105, L3200.1600, L503.7505, L509.7001 #### [facility] [address] [place], [address] MAG EMMETT PHOS TNP Normal . [facility] Comment on above: Performed By: #### L 3400.5105, L3200.1600, L503.7505, L509.7001 #### [facility] [address] [place], [address] NA ACID URATE TNP Normal . [facility] Comment on above: Performed By: #### L 3400.5105, L3200.1600, L503.7505, L509.7001 #### [facility] [address] [place], [address] NEWBERYITE TNP Normal . [facility] Comment on above: Performed By: #### L 3400.5105, L3200.1600, L503.7505, L509.7001 #### [facility] [address] [place], [address] Other Component TNP Normal . [facility] Comment on above: Performed By: #### L 3400.5105, L3200.1600, L503.7505, L509.7001 #### [facility] [address] [place], [address] PHOTO Comment Normal . [facility] Comment on above: Result Comment: Phot ograph will follow under a separate cover Performed By: #### L 3400.5105, L3200.1600, L503.7505, L509.7001 #### [facility] [address] [place], [address] SIZE 7x5 Normal . [facility] Comment on above: Result Comment: Mult iple pieces received. Dimensions of the largest piece reported. Performed By: #### L 3400.5105, L3200.1600, L503.7505, L509.7001 #### [facility] [address] [place], [address] SOURCE Comment Normal . [facility] Comment on above: Result Comment: Not provided Performed By: #### L 3400.5105, L3200.1600, L503.7505, L509.7001 #### [facility] [address] [place], [address] TRIAMTERENE TNP Normal . [facility] Comment on above: Performed By: #### L 3400.5105, L3200.1600, L503.7505, L509.7001 #### [facility] [address] [place], [address] URIC ACID 60 Normal . [facility] Comment on above: Performed By: #### L 3400.5105, L3200.1600, L503.7505, L509.7001 #### [facility] [address] [place], [address] URIC ACID DIHYD TNP Normal . [facility] Comment on above: Performed By: #### L 3400.5105, L3200.1600, L503.7505, L509.7001 #### [facility] [address] [place], [address] WEIGHT 88 mg Normal . [facility] Comment on above: Performed By: #### L 3400.5105, L3200.1600, L503.7505, L509.7001 #### [facility] [address] [place], [address] XANTHINE TNP Normal . [facility] Comment on above: Performed By: #### L 3400.5105, L3200.1600, L503.7505, L509.7001 #### [facility] [address] [place], [address] MONOCLONAL PROT 24 UR W/INTE RPon 10-21-2024 STAFF REVIEW ([facility]) Reviewed by Haydee Phelps MD Normal [facility] Comment on above: Order Comment: Speci men Type: BLOOD SPECIMEN Ordering Facility: [facility] Address: [address] [place] [address] Performed By: #### 2 284-8, 2885-2, 2131-9 #### [facility] CLIA [id number] 1 [place] [address] [place] UMPA RESULT No M protein is identified. Normal No M protein is identified. [facility] Comment on above: Order Comment: Speci men Type: BLOOD SPECIMEN Ordering Facility: [facility] Address: [address] [place] [address] Performed By: #### 2 284-8, 2885-2, 9 #### [facility] CLIA [id number] 1 [place] [address] [place] PROT ELEC UR 24HR W/M SPIKE (P)on 10-21-2024 Albumin/Globulin Elph (24H U) [Mass ratio] 44.50 % Normal [facility] Comment on above: Order Comment: Speci men Type: URINE SPECIMENOrdering Facility: [facility] Address: [address] [place] [address] Performed By: #### L [id number] ####[facility] [id number] [place] [address] [place] Alpha 1 globulin Elph (24H U) [Mass fraction] 5.50 % Normal [facility] Comment on above: Order Comment: Speci men Type: URINE SPECIMENOrdering Facility: [facility] Address: [address] [place] [address] Performed By: #### L [id number] ####[facility] [id number] [place] [address] [place] Alpha 2 globulin Elph (24H U) [Mass fraction] 17.65 % Normal [facility] Comment on above: Order Comment: Speci men Type: URINE SPECIMENOrdering Facility: [facility] Address: [address] [place] [address] Performed By: #### L [id number] ####[facility] [id number] [place] [address] [place] Beta globulin Elph (24H U) [Mass fraction] 19.74 % Normal [facility] Comment on above: Order Comment: Speci men Type: URINE SPECIMENOrdering Facility: [facility] Address: [address] [place] [address] Performed By: #### L [id number] ####[facility] [id number] [place] [address] [place] Gamma globulin Elph (24H U) [Mass fraction] 12.62 % Normal [facility] Comment on above: Order Comment: Speci men Type: URINE SPECIMENOrdering Facility: [facility] Address: [address] [place] [address] Performed By: #### L [id number] ####[facility] [id number] [place] [address] [place] Protein Fractions Elph Kamaljit (24H U) [Interp] No definitive M protein is identified on protein electrophoresis. Normal No definitive M protein is identified on protein electrophore sis. [facility] Comment on above: Order Comment: Speci men Type: URINE SPECIMENOrdering Facility: [facility] Address: [address] [place] [address] Performed By: #### L [id number] ####[facility] [id number] [place] [address] [place] Protein.monoclonal Elph (24H U) [Mass/Time] 0.00 g/24hr Normal [facility] Comment on above: Order Comment: Speci men Type: URINE SPECIMENOrdering Facility: [facility] Address: [address] [place] [address] Performed By: #### L [id number] ####[facility] [id number] [address] STAFF REVIEW ([id number]) Reviewed by Haydee Phelps MD Normal [facility] Comment on above: Order Comment: Speci men Type: URINE SPECIMENOrdering Facility: [facility] Address: [address] [place] [address] Performed By: #### L [id number] ####[facility] [id number] [place] [address] [place] Prot 24h Ur-mRateon 10-22-19 Protein (24H U) [Mass/Time] 0.11 g/24 Hr Normal <0.15 [facility] Comment on above: Order Comment: Speci men Type: BLOOD SPECIMEN Ordering Facility: [facility] Address: [address] [place] [address] Result Comment: Adul t Proteinuria Categories: <0.15 g/24 hours is considered normal to mildly increased 0.15 - 0.50 g/24 hours is considered moderately increased >0.50 g/24 hours is considered severely increased KDIGO. (2013). KDIGO 2012 Clinical Practice Guideline for the Evaluation and Management of Chronic Kidney Disease. Official Journal of the International Society of Nephrology, 3(1), 1-150. Performed By: #### 2 2314-9, 5195-3, 97432-8 #### [facility] CLIA [id number] [address] [place] [address] [place] Protein (24H U) [Mass/Time]o n 10-21-2024 PERIOD (HRS) 24 hr Normal [facility] Comment on above: Order Comment: Speci men Type: BLOOD SPECIMEN Ordering Facility: [facility] Address: [address] [place] [address] Performed By: #### 2 2314-9, 5195-3, 42069-2 #### [facility] CLIA [id number] [address] [place] [address] [place] Specimen volume (24H U) 2.65 L Normal [facility] [facility] Comment on above: Order Comment: Speci men Type: BLOOD SPECIMEN Ordering Facility: [facility] Address: [address] [place] [address] Performed By: #### 2 2314-9, 5195-3, 51693-2 #### [facility] CLIA [id number] [address] [place] [address] [place] Surgical pathology reportOrd ered By: Payton Norton on 10-15-2024 Surgical pathology study [facility] Ammonium urate crystals Infr ared spectroscopy Ql (Stone)Ordered By: Geovani Barron on 10-11-2024 Stone Ammonium Acid Urate [facility] Comment on above: Test not performed Ammonium urate crystals dete ction in stone by infrared spectroscopyOrdered By: Geovani Barron on 10-11-2024 Ammonium urate crystals Infrared spectroscopy Ql (Stone) [facility] Comment on above: Test not performed Blood.dried (Stone) [Mass fr action]Ordered By: Geovani Barron on 10-11-2024 Stone Dried Blood [facility] Comment on above: Test not performed Calcium hydrogen phosphate c rystals Infrared spectroscopy Ql (Stone)Ordered By: Geovani Barron on 10-11-2024 Stone Calcium Hydrogen Phosphate [facility] Comment on above: Test not performed Calcium hydrogen phosphate c rystals detection in stone by infrared spectroscopyOrdered By: Geovani Barron on 10-11-2024 Calcium hydrogen phosphate crystals Infrared spectroscopy Ql (Stone) [facility] Comment on above: Test not performed Calcium oxalate dihydrate cr ystals Infrared spectroscopy Ql (Stone)Ordered By: Geovani Barron on 10-11-2024 Stone Calcium Oxalate Dihydrate [facility] Comment on above: Test not performed Calcium oxalate dihydrate cr ystals detection in stone by infrared spectroscopyOrdered By: Geovani Barron on 10-11-2024 Calcium oxalate dihydrate crystals Infrared spectroscopy Ql (Stone) [facility] Comment on above: Test not performed Cellular material Est (Stone ) [Mass/Mass]Ordered By: Geovani Barron on 10-11-2024 Stone Cellular Material [facility] Comment on above: Test not performed Cholesterol measurementOrder ed By: Geovani Barron on 10-11-2024 Stone Cholesterol [facility] Comment on above: Test not performed Color (Unsp spec)Ordered By: Geovani Barron on 10-11-2024 Stone Color Brown . [facility] Color of specimen determinat ionOrdered By: Geovani Barron on 10-11-2024 Color (Unsp spec) Brown . [facility] Cystine (Unsp spec) [Moles/V ol]Ordered By: Geovani Barron on 10-11-2024 Stone Cystine [facility] Comment on above: Test not performed Cystine measurementOrdered B y: Geovani Barron on 10-11-2024 Cystine (Unsp spec) [Moles/Vol] [facility] Comment on above: Test not performed Determination of volume of c alculusOrdered By: Geovani Barron on 10-11-2024 Size (Stone) [Entitic vol] 7x5 mm . [facility] Comment on above: Multiple pieces rece ived. Dimensions of the largest piecereported. Estimation of cellular mater ial in calculus (mass/mass)Ordered By: Geovani Barron on 10-11-2024 Cellular material Est (Stone) [Mass/Mass] [facility] Comment on above: Test not performed External camera medical phot ographyOrdered By: Geovani Barron on 10-11-2024 Urinary Stone Photo Note Comment . [facility] Comment on above: Photograph will foll ow under a separate cover Laboratory - Miscellaneous t estsOrdered By: Geovani Barron on 10-11-2024 Service comment (Unsp spec) [Interp] [facility] Comment on above: Test not performed Service comment (Unsp spec) [Interp] Comment . [facility] Comment on above: Calculus received we t. Wet calculi must be dried beforeanalysis, which delays reporting of results. Leaving calculiwet (such as water, saline, blood, urine) may lead tochanges in composition. Physician questions regarding Calculi Analysis contactLabcorp at: [phone]. Calculi report will follow via computer, mail or courierdelivery. Measurement of proportion of calculus composed of dried blood (mass/mass)Ordered By: Geovani Barron on 10-11-2024 Blood.dried (Stone) [Mass fraction] [facility] Comment on above: Test not performed Measurement of weight of sto neOrdered By: Geovani Barron on 10-11-2024 Weight (Stone) 88 mg . [facility] Newberyite crystals Infrared spectroscopy Ql (Stone)Ordered By: Geovani Barron on 10-11-2024 Stone Newberyite [facility] Comment on above: Test not performed Newberyite crystals detectio n in stone by infrared spectroscopyOrdered By: Geovani Barron on 10-11-2024 Newberyite crystals Infrared spectroscopy Ql (Stone) [facility] Comment on above: Test not performed No Panel InformationOrdered By: Geovani Barron on 10-11-2024 Stone 2,8 Dihydroxyadenine [facility] Comment on above: Test not performed Stone Analysis (T) Comment . [facility] Comment on above: Percentage (Represen ts the % composition) Stone Bilirubin [facility] Comment on above: Test not performed Stone Calcium Bilirubinate [facility] Comment on above: Test not performed Stone Calcium Carbonate [facility] Comment on above: Test not performed Stone Calcium Hydroxyl-Phosphate [facility] Comment on above: Test not performed Stone Calcium Oxalate Monohydrate 40 % . [facility] Stone Calcium Palmitate [facility] Comment on above: Test not performed Stone Calcium Phosphate Carbonate [facility] Comment on above: Test not performed Stone Calcium Stearate [facility] Comment on above: Test not performed Stone Drug or Metabolite [facility] Comment on above: Test not performed Stone Other Component(s) [facility] Comment on above: Test not performed Stone Xanthine [facility] Comment on above: Test not performed Origin Nom (Stone)Ordered By : Geovani Barron on 10-11-2024 Stone Source Comment . [facility] Comment on above: Not provided Origin of StoneOrdered By: Irma Barron on 10-11-2024 Origin Nom (Stone) Comment . [facility] Comment on above: Not provided Service comment (Unsp spec) [Interp]Ordered By: Geovani Barron on 10-11-2024 Stone Comment [facility] Comment on above: Test not performed Stone Comment 2 Comment . [facility] Comment on above: Calculus received we t. Wet calculi must be dried beforeanalysis, which delays reporting of results. Leaving calculiwet (such as water, saline, blood, urine) may lead tochanges in composition. Stone Comment 3 Comment . [facility] Comment on above: Physician questions regarding Calculi Analysis contactCitizens [facility] Center[facility] at: [phone]. Stone Comment 4 Comment . [facility] Comment on above: Calculi report will follow via computer, mail or courierdelivery. Size (Stone) [Entitic vol]Or dered By: Geovani Barron on 10-11-2024 Stone Size 7x5 mm . [facility] Comment on above: Multiple pieces rece ived. Dimensions of the largest piecereported. Sodium urate crystals Infrar ed spectroscopy Ql (Stone)Ordered By: Geovani Barron on 10-11-2024 Stone Sodium Acid Urate [facility] Comment on above: Test not performed Sodium urate crystals detect ion in stone by infrared spectroscopyOrdered By: Geovani Barron on 10-11-2024 Sodium urate crystals Infrared spectroscopy Ql (Stone) [facility] Comment on above: Test not performed Surgery Specimen Level Ion 0 10-11-2024 Surgery Specimen Level I Patient Age/Sex Location Account Attending Physician NAZARIO HUTTON 73/M [facility] [id number] Dr. Geovani Barron MD Specimen: [id number] Received: 10/14/24 Status: ROSEMARIE Corrigan Num: [id number] Spec Type: Calculi Subm Dr: Dr. Geovani Barron MD HEADER OPERATION: Left ureteroscopy, laser stone, left ureteral stent PRE-OP DIAGNOSIS: Calculus of ureter TISSUE SUBMITTED: A- Ureteral calculi stone GROSS DIAGNOSIS Ureteral calculi, removed: * Calculi confirmed (gross examination only). * Chemical analysis is PENDING and will be reported separately. GROSS DESCRIPTION Received fresh Labeled, Ye Hutton and not designated, are multiple dark brown, ragged, irregularly-shaped calculi and calculus fragments that aggregate to 0.8 x 0.8 x 0.3 cm. The calculi are for gross examination only and entirely submitted for chemical analysis. 10/14/2024 CPT:94448 Patient Age/Sex Location Account Attending Physician NAZARIO HUTTON 73/M [facility] [id number] Dr. Geovani Barron MD Signed (signature on file) Dr. Payton Norton MD 10/15/24 1717 Normal [facility] Comment on above: Performed By: #### L 3400.5105, L3200.1600, L503.7505, L509.7001 #### [facility] Erika Palom[address]. [place], [place], [address] Triamterene crystals Infrare d spectroscopy Ql (Stone)Ordered By: Geovani Barron on 10-11-2024 Stone Triamterene [facility] Comment on above: Test not performed Triamterene crystals detecti on in stone by infrared spectroscopyOrdered By: Geovani Barron on 10-11-2024 Triamterene crystals Infrared spectroscopy Ql (Stone) [facility] Comment on above: Test not performed Triple phosphate crystals In frared spectroscopy Ql (Stone)Ordered By: Geovani Barron on 10-11-2024 Stone Magnesium Ammonium Phosphate [facility] Comment on above: Test not performed Triple phosphate crystals de tection in stone by infrared spectroscopyOrdered By: Geovani Barron on 10-11-2024 Triple phosphate crystals Infrared spectroscopy Ql (Stone) [facility] Comment on above: Test not performed Urate crystals Infrared spec troscopy Ql (Stone)Ordered By: Geovani Barron on 10-11-2024 Stone Uric Acid 60 % . [facility] Urate dihydrate crystals Inf rared spectroscopy Ql (Stone)Ordered By: Geovani Barron on 10-11-2024 Stone Uric Acid Dihydrate [facility] Comment on above: Test not performed Uric acid crystals detection in stone by infrared spectroscopyOrdered By: Geovani Barron on 10-11-2024 Urate crystals Infrared spectroscopy Ql (Stone) 60 % . [facility] Uric acid dihydrate crystals detection in stone by infrared spectroscopyOrdered By: Geovani Barron on 10-11-2024 Urate dihydrate crystals Infrared spectroscopy Ql (Stone) [facility] Comment on above: Test not performed Weight (Stone)Ordered By: Angella Barron on 10-11-2024 Stone Weight 88 mg . [facility] Baljit 09-27-2024 MITCHELL Telephone (JENNIFER) -- NAZARIO HUTTON ([id number]) 1950 M Date Time Provider Department 09/27/24 STEPHANIE ROY During your visit today, we recorded the following information about you: Stephanie Roy DO 09/27/2024 5:35 PM Signed Can let him know the lab work revealed a very low level monoclonal protein which I think will be of no clinical consequence but does require further workup. Needs ionized calcium and 24-hour urine M spike then office visit with me. DO Armond Bobo Melanie, LPN 09/30/2024 8:58 AM Signed Message left for patient to contact office. SUSHIL Deleon Melanie, LPN 10/01/2024 8:37 AM Signed Second message left for patient to contact office. SUSHIL Deleon Melissa 10/01/2024 1:26 PM Signed Relayed message to patient. Lab and office visit scheduled with patient. Patient aware to flower picker 24 hr urine container prior to 10/21 when he comes in for lab work. He will bring urine to that appt. 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 #:[id number] MONOCLONAL PROT 24 UR W/INTERP [[id number]] Order #: [id number]. #:[id number] PROTEIN, 24 HOUR URINE [SQUTP24] Reflex Order#: [id number] (Ord#:[id number])Spec. #:[id number] PROT ELEC UR 24HR W/M SPIKE (P) [[id number]] Reflex Order#: [id number] (Ord#:[id number])Spec. #:[id number] Prescriptions as of 10/21/2024 - gabapentin (NEURONTIN) 300 mg capsule Take 1 capsule by mouth two times a day for 90 days. - fexofenadine (MARII ALLERGY) 180 mg tablet Take 1 tablet by mouth once daily. - carvedilol (COREG) 12.5 mg tablet Take 1 tablet by mouth two times a day with meals. - carvedilol (COREG) 12.5 mg tablet Take 1 tablet by mouth two times a day with meals. - FLUoxetine (PROZAC) 40 mg capsule Take 1 capsule by mouth once daily. - allopurinol (ZYLOPRIM) 100 mg tablet TAKE 1 TABLET BY MOUTH ONCE DAILY. FOR GOUT. - amLODIPine (NORVASC) 5 mg tablet Take 1 tablet by mouth once daily. - ezetimibe (ZETIA) 10 mg tablet Take 1 tablet by mouth once daily. - Blood Pressure Monitor 1 Each once daily. - isosorbide mononitrate ER (IMDUR) 30 mg 24 hr tablet Take 1 tablet by mouth once daily. Per [facility] - aspirin, enteric coated (ASPIRIN, ENTERIC COATED) 81 mg EC tablet Take 1 tablet by mouth once daily. - multivitamin tablet Take 1 tablet by mouth once daily. - nitroglycerin sublingual (NITROQUICK) 0.4 mg SL tablet Dissolve 1 tablet under the tongue every 5 minutes as needed for chest pain. - docosahexaenoic acid/epa (FISH OIL ORAL) Take 1,000 mg by mouth once daily. - cholecalciferol (VITAMIN D3) 5,000 unit tab Take 5,000 Units by mouth once daily. - ascorbic acid, vitamin C, (VITAMIN C) 500 mg tablet Take 500 mg by mouth once daily. - doxepin capsule 25 mg Take 1 capsule by mouth daily at bedtime. - VITAMIN B COMPLEX (B COMPLEX 1 ORAL) Take 1 tablet by mouth once daily. - diphenhydrAMINE (BENADRYL) 25 mg capsule Take 25 mg by mouth every 6 hours as needed. 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 Normal [facility] CBC W Auto Differential pane l (Bld)on 09-25-2024 Basophils (Bld) [#/Vol] 0.08 10*3/uL [facility] Basophils/100 WBC (Bld) 0.9 % [facility] Differential cell count method Nom (Bld) Auto [facility] Eosinophils (Bld) [#/Vol] 1.07 10*3/uL High [facility] Eosinophils/100 WBC (Bld) 12.4 % [facility] Erythrocyte distribution width (RBC) [Ratio] 13.5 % 11.5 - 15.0 % [facility] Hematocrit (Bld) [Volume fraction] 43.8 % 39.0 - 51.0 % [facility] Hemoglobin (Bld) [Mass/Vol] 15 g/dL 13.0 - 17.0 g/dL [facility] Immature granulocytes (Bld) [#/Vol] 0.03 10*3/uL [facility] Immature granulocytes/100 WBC (Bld) 0.3 % [facility] Interpretation and review of laboratory results Abnormal [facility] Lymphocytes (Bld) [#/Vol] 0.78 10*3/uL Low [facility] Lymphocytes/100 WBC (Bld) 9.1 % [facility] MCH (RBC) [Entitic mass] 34.4 pg High 26.0 - 34.0 pg [facility] MCHC (RBC) [Mass/Vol] 34.2 g/dL 30.5 - 36.0 g/dL [facility] MCV (RBC) [Entitic vol] 100.5 fL High 80.0 - 100.0 fL [facility] Monocytes (Bld) [#/Vol] 0.82 10*3/uL [facility] Monocytes/100 WBC (Bld) 9.5 % [facility] Neutrophils (Bld) [#/Vol] 5.82 10*3/uL [facility] Neutrophils/100 WBC (Bld) 67.8 % [facility] Nucleated RBC (Bld) [#/Vol] [facility] Nucleated RBC/100 WBC (Bld) [Ratio] 0 % /100 WBC [facility] Platelet mean volume (Bld) [Entitic vol] 10.1 fL 9.0 - 12.7 fL [facility] Platelets (Bld) [#/Vol] 245 10*3/uL [facility] RBC (Bld) [#/Vol] 4.36 10*6/uL 4.20 - 6.0 0 m/uL [facility] WBC (Bld) [#/Vol] 8.6 10*3/uL [facility] Basophils (Bld) [#/Vol] 0.08 10*3/uL Normal <0.11 [facility] Comment on above: Order Comment: Speci men Type: BLOOD SPECIMEN Ordering Facility: [facility] Address: [address] [place], [place] [address] Performed By: #### 2 2314-9, 5195-3, 18911-5 #### [facility] CLIA [id number] [address] [place] [address] [place] Basophils/100 WBC (Bld) 0.9 % Normal [facility] Comment on above: Order Comment: Speci men Type: BLOOD SPECIMEN Ordering Facility: [facility] Address: [address] [place] [address] Performed By: #### 2 2314-9, 5-3, 98556-0 #### [facility] CLIA [id number] [address] [place] [address] [place] Differential cell count method Nom (Bld) Auto Normal [facility] Comment on above: Order Comment: Speci men Type: BLOOD SPECIMEN Ordering Facility: [facility] Address: [address] [place] [address] Performed By: #### 2 2314-9, 3, 43406-3 #### [facility] CLIA [id number] [address] [place] [address] [place] Eosinophils (Bld) [#/Vol] 1.07 10*3/uL High <0.46 [facility] Comment on above: Order Comment: Speci men Type: BLOOD SPECIMEN Ordering Facility: [facility] Address: [address] [place] [address] Performed By: #### 2 2314-9, 3, 54615-9 #### [facility] CLIA [id number] [address] [place] [address] [place] Eosinophils/100 WBC (Bld) 12.4 % Normal [facility] Comment on above: Order Comment: Speci men Type: BLOOD SPECIMEN Ordering Facility: [facility] Address: [address] [place] [address] Performed By: #### 2 2314-9, 53, 23125-5 #### [facility] CLIA [id number] [address] [place] [address] [place] Erythrocyte distribution width (RBC) [Ratio] 13.5 % Normal 11.5-15.0 [facility] Comment on above: Order Comment: Speci men Type: BLOOD SPECIMEN Ordering Facility: [facility] Address: [address] [place] [address] Performed By: #### 2 2314-9, 5195-3, 29231-0 #### [facility] CLIA [id number] [address] [place] [address] [place] Hematocrit (Bld) [Volume fraction] 43.8 % Normal 39.0-51.0 [facility] Comment on above: Order Comment: Speci men Type: BLOOD SPECIMEN Ordering Facility: [facility] Address: [address] [place] [address] Performed By: #### 2 2314-9, 5195-3, 16008-5 #### [facility] CLIA [id number] [address] [place] [address] [place] Hemoglobin (Bld) [Mass/Vol] 15.0 g/dL Normal 13.0-17.0 [facility] Comment on above: Order Comment: Speci men Type: BLOOD SPECIMEN Ordering Facility: [facility] Address: [address] [place] [address] Performed By: #### 2 2314-9, 5195-3, 80222-4 #### [facility] CLIA [id number] [address] [place] [address] [place] Immature granulocytes (Bld) [#/Vol] 0.03 10*3/uL Normal <0.10 [facility] Comment on above: Order Comment: Speci men Type: BLOOD SPECIMEN Ordering Facility: [facility] Address: [address] [place] [address] Performed By: #### 2 2314-9, 5195-3, 14278-0 #### [facility] CLIA [id number] [address] [id number] [address] [place] Immature granulocytes/100 WBC (Bld) 0.3 % Normal [facility] Comment on above: Order Comment: Speci men Type: BLOOD SPECIMEN Ordering Facility: [facility] Address: [address] [place] [address] Performed By: #### 2 2314-9, 5195-3, 65187-0 #### [facility] CLIA [id number] [address] [place] [address] [place] Lymphocytes (Bld) [#/Vol] 0.78 10*3/uL Low 1.00-4.00 [facility] Comment on above: Order Comment: Speci men Type: BLOOD SPECIMEN Ordering Facility: [facility] Address: [address] [place] [address] Performed By: #### 2 2314-9, 51953, 60427-4 #### [facility] CLIA [id number] [address] [place] [address] [place] Lymphocytes/100 WBC (Bld) 9.1 % Normal [facility] Comment on above: Order Comment: Speci men Type: BLOOD SPECIMEN Ordering Facility: [facility] Address: [address] [place] [address] Performed By: #### 2 2314-9, 5-3, 66525-5 #### [facility] CLIA [id number] [address] [place] [address] [place] MCH (RBC) [Entitic mass] 34.4 pg High 26.0-34.0 [facility] Comment on above: Order Comment: Speci men Type: BLOOD SPECIMEN Ordering Facility: [facility] Address: [address] [place] [address] Performed By: #### 2 2314-9, 5-3, 26031-9 #### [facility] CLIA [id number] [address] [place] [address] [place] MCHC (RBC) [Mass/Vol] 34.2 g/dL Normal 30.5-36.0 [facility] Comment on above: Order Comment: Speci men Type: BLOOD SPECIMEN Ordering Facility: [facility] Address: [address] [place] [address] Performed By: #### 2 2314-9, 5194-3, 42944-2 #### [facility] CLIA [id number] [address] [place] [address] [place] MCV (RBC) [Entitic vol] 100.5 fL High 80.0-100.0 [facility] Comment on above: Order Comment: Speci men Type: BLOOD SPECIMEN Ordering Facility: [facility] Address: [address] [place] [address] Performed By: #### 2 2314-9, 3, 29562-3 #### [facility] CLIA [id number] [address] [place] [address] [place] Monocytes (Bld) [#/Vol] 0.82 10*3/uL Normal <0.87 [facility] Comment on above: Order Comment: Speci men Type: BLOOD SPECIMEN Ordering Facility: [facility] Address: [address] [place] [address] Performed By: #### 2 2314-9, 3, 89101-7 #### [facility] CLIA [id number] [address] [place] [address] [place] Monocytes/100 WBC (Bld) 9.5 % Normal [facility] Comment on above: Order Comment: Speci men Type: BLOOD SPECIMEN Ordering Facility: [facility] Address: [address] [place] [address] Performed By: #### 2 2314-9, 3, 74673-9 #### [facility] CLIA [id number] [address] [place] [address] [place] Neutrophils (Bld) [#/Vol] 5.82 10*3/uL Normal 1.45-7.50 [facility] Comment on above: Order Comment: Speci men Type: BLOOD SPECIMEN Ordering Facility: [facility] Address: [address] [place] [address] Performed By: #### 2 2314-9, 5-3, 80089-8 #### [facility] CLIA [id number] [address] [place] [address] [place] Neutrophils/100 WBC (Bld) 67.8 % Normal [facility] Comment on above: Order Comment: Speci men Type: BLOOD SPECIMEN Ordering Facility: [facility] Address: [address] [place] [address] Performed By: #### 2 2314-9, 53, 14103-7 #### [facility] CLIA [id number] [address] [place] [address] [place] Nucleated RBC (Bld) [#/Vol] 10*3/uL Normal <0.01 [facility] Comment on above: Order Comment: Speci men Type: BLOOD SPECIMEN Ordering Facility: [facility] Address: [address] [place] [address] Performed By: #### 2 2314-9, 5-3, 45400-2 #### [facility] CLIA [id number] [address] [place] [address] [place] Nucleated RBC/100 WBC (Bld) [Ratio] 0.0 /100 WBC Normal [facility] Comment on above: Order Comment: Speci men Type: BLOOD SPECIMEN Ordering Facility: [facility] Address: [address] [place] [address] Performed By: #### 2 2314-9, 5195-3, 97411-4 #### [facility] CLIA [id number] [address] [place] [address] [place] Platelet mean volume (Bld) [Entitic vol] 10.1 fL Normal 9.0-12.7 [facility] Comment on above: Order Comment: Speci men Type: BLOOD SPECIMEN Ordering Facility: [facility] Address: [address] [place] [address] Performed By: #### 2 2314-9, 5195-3, 57749-4 #### [facility] CLIA [id number] [address] [place] [address] [place] Platelets (Bld) [#/Vol] 245 10*3/uL Normal 150-400 [facility] Comment on above: Order Comment: Speci men Type: BLOOD SPECIMEN Ordering Facility: [facility] Address: [address] [place] [address] Performed By: #### 2 2314-9, 5195-3, 12780-1 #### [facility] CLIA [id number] [address] [place] [address] [place] RBC (Bld) [#/Vol] 4.36 10*6/uL Normal 4.20-6.00 [facility] Comment on above: Order Comment: Speci men Type: BLOOD SPECIMEN Ordering Facility: [facility] Address: [address] [place] [address] Performed By: #### 2 2314-9, 5195-3, 24920-8 #### [facility] CLIA [id number] [address] [place] [address] [place] WBC (Bld) [#/Vol] 8.60 10*3/uL Normal 3.70-11.00 [facility] Comment on above: Order Comment: Speci men Type: BLOOD SPECIMEN Ordering Facility: [facility] Address: [address] [place] [address] Performed By: #### 2 2314-9, 5195-3, 74210-1 #### [facility] CLIA [id number] [address] [place] [address] [place] CNOVSPon 09-25-2024 CNOVSP Visit (SP) Office ( EMAWS) -- NAZARIO HUTTON ([id number]) 1950 M Date Time Provider Department 09/25/24 2:00 PM STEPHANIE ROY HEMAWS During your visit today, we recorded the following information about you: Temperature Pulse Blood pressure Weight 98.8 degrees 79/minute 134/83 95.7 kg Height 1.77 m Stephanie Roy DO 09/25/2024 3:01 PM Signed Patient referred by Dr. 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 HPI: The patient is a 73 yo male with PMH as outlined below. CAD--SD PCI 4 stents 2021. 07/2022--Lower GI bleed. Intermittent numbness fingers and half of palm. Intermittent numbness feet that can extend to just above ankle. 2 episodes of isolated tongue angioedema in the last 6 months. Attributed to losartan. Possibly connected to sertraline as well. He has been seen by allergy and immunology. PAST MEDICAL HISTORY Diagnosis Date Advance directive discussed with patient 04/18/2022 Discussed 03/2022 Alcohol abuse 09/14/2022 6 beers a day since passed in early 2021 Alcoholic cirrhosis (HCC) 06/05/[address] Francis Ash 12/08/2014 AVM (arteriovenous malformation) of colon 09/14/[address] Chacon BENIGN HYPERTENSION 03/04/2008 Coronary artery disease due to lipid rich plaque 12/06/[address] Edwards , cardio [place] Diverticulosis 09/05/2022 Elevated alkaline phosphatase level 09/03/2017 Elevated PSA 03/17/2021 Heart murmur, systolic 08/01/2018 High serum parathyroid hormone (PTH) 08/01/[address] elevation myocardial infarction (STEMI) 12/06/2021 Hyperuricemia 10/30/[address] 04/18/2022 DPA: Jae (son) Low serum vitamin B12 05/18/2023 Low vitamin D level 03/15/2021 Lumbosacral radiculopathy at L5 07/10/2023 Medicare annual wellness visit, subsequent 03/15/2021 Medicare Part B: Not able to find. 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 Floyd, repeat 10 yrs REMV CATARACT EXTRACAP,INSERT LENS Bilateral 07/2022 gabapentin (NEURONTIN) 300 mg capsule Take 1 capsule by mouth two times a day for 90 days. fexofenadine (MARII) 180 mg tablet Take 1 tablet by mouth once daily. fexofenadine (MARII ALLERGY) 180 mg tablet Take 1 tablet by mouth once daily. carvedilol (COREG) 12.5 mg tablet Take 1 tablet by mouth two times a day with meals. carvedilol (COREG) 12.5 mg tablet Take 1 tablet by mouth two times a day with meals. FLUoxetine (PROZAC) 40 mg capsule Take 1 capsule by mouth once daily. FLUoxetine (PROZAC) 40 mg capsule Take 1 capsule by mouth once daily. allopurinol (ZYLOPRIM) 100 mg tablet TAKE 1 TABLET BY MOUTH ONCE DAILY. FOR GOUT. allopurinol (ZYLOPRIM) 100 mg tablet TAKE 1 TABLET BY MOUTH ONCE DAILY. FOR GOUT. amLODIPine (NORVASC) 5 mg tablet Take 1 tablet by mouth once daily. ezetimibe (ZETIA) 10 mg tablet Take 1 tablet by mouth once daily. Blood Pressure Monitor 1 Each once daily. isosorbide mononitrate ER (IMDUR) 30 mg 24 hr tablet Take 1 tablet by mouth once daily. Per [facility] atorvastatin (LIPITOR) 80 mg tablet TAKE 1 [...] 1 capsule by mouth daily at bedtime. VITAMIN B COMPLEX (B COMPLEX 1 ORAL) Take by mouth. diphenhydrAMINE (BENADRYL) 25 mg capsule Take 25 mg by mouth every 6 hours as needed. ALLERGIES Allergen Reactions Arb-Angiotensin Rec* Other: See Comments angioedema Sertraline Other: See Comments angioedema Hctz [Hydrochloroth* Unknown rash Social History Tobacco Use Smoking status: Former Types: Cigarettes Smokeless tobacco: Never Substance Use Topics Alcohol use: Yes Comment: 6 pack of beer a week on average Drug use: No FAMILY HISTORY Problem Relation Age of Onset Cancer Mother lung cancer Ischemic Heart Disease Father 53 Alzheimer's Disease No Family History Wells (more content not included)... Normal [facility] COPPER BLOODon 09-25-2024 Copper [Mass/Vol] 127 ug/dL Normal 70-140 [facility] Comment on above: Order Comment: Speci men Type: BLOOD SPECIMEN Ordering Facility: [facility] Address: [address] [place] [address] Result Comment: This test was developed, and its performance characteristics determined by the [facility] Department of Pathology and Laboratory Medicine. It has not been cleared or approved by the FDA. The [facility] Department of Pathology and Laboratory Medicine is regulated under CLIA as qualified to perform high-complexity testing. This test is used for clinical purposes. It should not be regarded as investigational or for research. Performed By: #### C OPPER #### [facility] CLIA [id number] [address] [place], [place] [address] [address] [place] Comprehensive metabolic 2000 panelOrdered By: Blanca Odonnell on 09-25-2024 Albumin [Mass/Vol] 4.6 g/dL 3.9 - 4.9 g/dL [facility] ALP [Catalytic activity/Vol] 162 U/L High 38 - 113 U/L [facility] ALT [Catalytic activity/Vol] 36 U/L 10 - 54 U/L [facility] Anion gap [Moles/Vol] 13 mmol/L 8 - 15 mmol/L [facility] AST [Catalytic activity/Vol] 55 U/L High 14 - 40 U/L [facility] Bilirubin [Mass/Vol] 0.7 mg/dL 0.2 - 1 .3 mg/dL [facility] Calcium [Mass/Vol] 10.3 mg/dL High 8.5 - 10. 2 mg/dL [facility] Chloride [Moles/Vol] 101 mmol/L 98 - 10 7 mmol/L [facility] CO2 [Moles/Vol] 21 mmol/L Low 22 - 30 mmol/L [facility] Creatinine [Mass/Vol] 0.67 mg/dL Low 0.73 - 1.22 mg/dL [facility] GFR/1.73 sq M.predicted among non-blacks MDRD (S/P/Bld) [Vol rate/Area] 99 mL/min/{1.73_m2} - PINF [facility] Comment on above: Estimated Glomerular Filtration Rate (eGFR) is calculated using the 2020 CKD-EPI creatinine equation. This equation utilizes serum creatinine, sex, and age as parameters. The creatinine assay has traceable calibration to isotope dilution-mass spectrometry. Refer to KDIGO guidelines for clinical interpretation. In patients with unstable renal function, e.g. those with acute kidney injury, the eGFR may not accurately reflect actual GFR. Glucose [Mass/Vol] 101 mg/dL High 74 - 99 mg/dL [facility] Comment on above: The [place] Diabete s Association (ADA) provides guidance for cutoff values for fasting glucose and random glucose. The ADA defines fasting as no caloric intake for at least 8 hours. Fasting plasma glucose results between 100 to 125 mg/dL indicate increased risk for diabetes (prediabetes). Fasting plasma glucose results greater than or equal to 126 mg/dL meet the criteria for diagnosis of diabetes. In the absence of unequivocal hyperglycemia, results should be confirmed by repeat testing. In a patient with classic symptoms of hyperglycemia or hyperglycemic crisis, random plasma glucose results greater than or equal to 200 mg/dL meet the criteria for diagnosis of diabetes. Reference: Standards of Medical Care in Diabetes 2016, [place] Diabetes Association. Diabetes Care. 2016.39(Suppl 1). Interpretation and review of laboratory results Abnormal [facility] Potassium [Moles/Vol] 4.7 mmol/L 3.7 - 5.1 mmol/L [facility] Protein [Mass/Vol] 8.2 g/dL High 6.3 - 8.0 g/dL [facility] Sodium [Moles/Vol] 135 mmol/L Low 136 - 144 mmol/L [facility] Urea nitrogen [Mass/Vol] 14 mg/dL 9 - 24 mg/dL [facility] Comprehensive metabolic 2000 panelon 09-25-2024 Albumin [Mass/Vol] 4.6 g/dL Normal 3.9-4.9 [facility] Comment on above: Order Comment: Speci men Type: BLOOD SPECIMEN Ordering Facility: [facility] Address: [address] [place] [address] Performed By: #### C OPPER #### [facility] CLIA [id number] [address] [place] [address] [place] ALP [Catalytic activity/Vol] 162 U/L High 38-113 [facility] Comment on above: Order Comment: Speci men Type: BLOOD SPECIMEN Ordering Facility: [facility] Address: [address] [place] [address] Performed By: #### C OPPER #### [facility] CLIA [id number] [address] [place] [address] [place] ALT [Catalytic activity/Vol] 36 U/L Normal 10-54 [facility] Comment on above: Order Comment: Speci men Type: BLOOD SPECIMEN Ordering Facility: [facility] Address: [address] [place] [address] Performed By: #### C OPPER #### [facility] CLIA [id number] [address] [place] [address] [place] Anion gap [Moles/Vol] 13 mmol/L Normal 8-15 [facility] Comment on above: Order Comment: Speci men Type: BLOOD SPECIMEN Ordering Facility: [facility] Address: [address] [place] [address] Performed By: #### C OPPER #### [facility] CLIA [id number] [address] [place] [address] [place] AST [Catalytic activity/Vol] 55 U/L High 14-40 [facility] Comment on above: Order Comment: Speci men Type: BLOOD SPECIMEN Ordering Facility: [facility] Address: [address] [place] [address] Performed By: #### C OPPER #### [facility] CLIA [id number] [address] [place] [address] [place] Bilirubin [Mass/Vol] 0.7 mg/dL Normal 0.2-1.3 [facility] Comment on above: Order Comment: Speci men Type: BLOOD SPECIMEN Ordering Facility: [facility] Address: [address] [place] [address] Performed By: #### C OPPER #### [facility] CLIA [id number] [address] [place] [address] [place] Calcium [Mass/Vol] 10.3 mg/dL High 8.5-10.2 [facility] Comment on above: Order Comment: Speci men Type: BLOOD SPECIMEN Ordering Facility: [facility] Address: [address] [place] [address] Performed By: #### C OPPER #### [facility] CLIA [id number] [address] [place] [address] [place] Chloride [Moles/Vol] 101 mmol/L Normal 98-107 [facility] Comment on above: Order Comment: Speci men Type: BLOOD SPECIMEN Ordering Facility: [facility] Address: [address] [place] [address] Performed By: #### C OPPER #### [facility] CLIA [id number] [address] [place] [address] [place] CO2 [Moles/Vol] 21 mmol/L Low 22-30 [facility] Comment on above: Order Comment: Speci men Type: BLOOD SPECIMEN Ordering Facility: [facility] Address: [address] [place] [address] Performed By: #### C OPPER #### [facility] CLIA [id number] [address] [place] [address] [place] Creatinine [Mass/Vol] 0.67 mg/dL Low 0.73-1.22 [facility] Comment on above: Order Comment: Speci men Type: BLOOD SPECIMEN Ordering Facility: [facility] Address: [address] [place] [address] Performed By: #### C OPPER #### [facility] CLIA [id number] [address] [place] [address] [place] Creatinine and Glomerular filtration rate.predicted panel (S/P/Bld) 99 mL/min/1.73m??? Normal >=60 [facility] Comment on above: Order Comment: Speci men Type: BLOOD SPECIMEN Ordering Facility: [facility] Address: [address] [place] [address] Result Comment: Micaela mated Glomerular Filtration Rate (eGFR) is calculated using the 2020 CKD-EPI creatinine equation. This equation utilizes serum creatinine, sex, and age as parameters. The creatinine assay has traceable calibration to isotope dilution-mass spectrometry. Refer to KDIGO guidelines for clinical interpretation. In patients with unstable renal function, e.g. those with acute kidney injury, the eGFR may not accurately reflect actual GFR. Performed By: #### C OPPER #### [facility] CLIA [id number] [address] [place] [address] [place] Glucose [Mass/Vol] 101 mg/dL High 74-99 [facility] Comment on above: Order Comment: Speci men Type: BLOOD SPECIMEN Ordering Facility: [facility] Address: [address] [place] [address] Result Comment: The [place] Diabetes Association (ADA) provides guidance for cutoff values for fasting glucose and random glucose. The ADA defines fasting as no caloric intake for at least 8 hours. Fasting plasma glucose results between 100 to 125 mg/dL indicate increased risk for diabetes (prediabetes). Fasting plasma glucose results greater than or equal to 126 mg/dL meet the criteria for diagnosis of diabetes. In the absence of unequivocal hyperglycemia, results should be confirmed by repeat testing. In a patient with classic symptoms of hyperglycemia or hyperglycemic crisis, random plasma glucose results greater than or equal to 200 mg/dL meet the criteria for diagnosis of diabetes. Reference: Standards of Medical Care in Diabetes 2016, [place] Diabetes Association. Diabetes Care. 2016.39(Suppl 1). Performed By: #### C OPPER #### [facility] CLIA [id number] [address] [place] [address] [place] Potassium [Moles/Vol] 4.7 mmol/L Normal 3.7-5.1 [facility] Comment on above: Order Comment: Speci men Type: BLOOD SPECIMEN Ordering Facility: [facility] Address: [address] [place] [address] Performed By: #### C OPPER #### [facility] CLIA [id number] [address] [place] [address] [place] Protein [Mass/Vol] 8.2 g/dL High 6.3-8.0 [facility] Comment on above: Order Comment: Speci men Type: BLOOD SPECIMEN Ordering Facility: [facility] Address: [address] [place] [address] Performed By: #### C OPPER #### [facility] CLIA [id number] [address] [place] [address] [place] Sodium [Moles/Vol] 135 mmol/L Low 136-144 [facility] Comment on above: Order Comment: Speci men Type: BLOOD SPECIMEN Ordering Facility: [facility] Address: [address] [place] [address] Performed By: #### C OPPER #### [facility] CLIA [id number] [address] [place] [address] [place] Urea nitrogen [Mass/Vol] 14 mg/dL Normal 9-24 [facility] Comment on above: Order Comment: Speci men Type: BLOOD SPECIMEN Ordering Facility: [facility] Address: [address] [place] [address] Performed By: #### C OPPER #### [facility] CLIA [id number] [address] [place] [address] [place] Folate SerPl-mCncon 09-26-19 25 Folate [Mass/Vol] 13.3 ng/mL Normal >4.7 [facility] Comment on above: Order Comment: Speci men Type: BLOOD SPECIMEN Ordering Facility: [facility] Address: [address] [place] [address] Performed By: #### 2 284-8, 2885-2, 2132-9 #### [facility] CLIA [id number] [address] OF [facility] IMMUNOFIXATION SCREEN, SERUM on 09-25-2024 INTERPRETATION (MPA) Atypical restricted bands are present in the IgG and kappa regions. Consistent with IgG kappa monoclonal gammopathy. Normal [facility] Comment on above: Order Comment: Speci men Type: BLOOD SPECIMEN Ordering Facility: [facility] Address: [address] [place] [address] Performed By: #### C OPPER #### [facility] CLIA [id number] [address] [place] [address] [place] MPA RESULT M protein is present. Abnormal No M p rotein is identified. [facility] Comment on above: Order Comment: Speci men Type: BLOOD SPECIMEN Ordering Facility: [facility] Address: [address] [place] [address] Performed By: #### C OPPER #### [facility] CLIA [id number] [address] [place] [address] [place] STAFF REVIEW (MPA) Reviewed by Derrick Rawls MD, Ph.D ([id number]) Normal [facility] Comment on above: Order Comment: Speci men Type: BLOOD SPECIMEN Ordering Facility: [facility] Address: [address] [place] [address] Performed By: #### C OPPER #### [facility] CLIA [id number] [address] [place] [address] [place] IMMUNOGLOBULINS,IGG,IGA,IGMo n 09-25-2024 IgA [Mass/Vol] 361 mg/dL Normal 70-400 [facility] Comment on above: Order Comment: Speci men Type: BLOOD SPECIMEN Ordering Facility: [facility] Address: [address] [place] [address] Performed By: #### 2 2314-9, 5195-3, 40458-7 #### [facility] CLIA [id number] [address] [place] [address] [place] IgG [Mass/Vol] 1487 mg/dL Normal 700-1600 [facility] Comment on above: Order Comment: Speci men Type: BLOOD SPECIMEN Ordering Facility: [facility] Address: [address] [place] [address] Performed By: #### 2 2314-9, 5195-3, 80953-1 #### [facility] CLIA [id number] [address] [place] [address] [place] IgM [Mass/Vol] 46 mg/dL Normal 40-230 [facility] Comment on above: Order Comment: Speci men Type: BLOOD SPECIMEN Ordering Facility: [facility] Address: [address] [place] [address] Performed By: #### 2 2314-9, 5195-3, 03698-5 #### [facility] CLIA [id number] [address] [place] [address] [place] KAPPA/NEUMANN,FREE,SERon 2024 Immunoglobulin light chains.kappa.free (S) [Mass/Vol] 35.1 mg/L High 3.3-19.4 [facility] Comment on above: Order Comment: Speci men Type: BLOOD SPECIMEN Ordering Facility: [facility] Address: [address] [place] [address] Result Comment: Rare ly, increased serum free light chains levels may not be detected or accurately quantified due to prozone phenomenon or in high viscosity samples using this immunoturbidimetric assay. Correlation with other laboratory results and clinical findings is recommended. The [place] Free Light Chain was performed using the Binding Site Optilite immunoturbidimetric method. Result obtained with different assay methods or kits cannot be used interchangeably. Performed By: #### 1 989-3 #### [facility] CLIA [id number] [address] [place] [address] [place] Immunoglobulin light chains.kappa/Immunogl obulin light chains.lambda (S) [Mass ratio] 1.02 Normal 0.26-1.65 [facility] Comment on above: Order Comment: Speci men Type: BLOOD SPECIMEN Ordering Facility: [facility] Address: [address] [place] [address] Performed By: #### 1 989-3 #### [facility] CLIA [id number] [address] [place] [address] [place] Immunoglobulin light chains.lambda.free [Mass/Vol] 34.4 mg/L High 5.7-26.3 [facility] Comment on above: Order Comment: Speci men Type: BLOOD SPECIMEN Ordering Facility: [facility] Address: [address] [place] [address] Result Comment: Rare ly, increased serum free light chains levels may not be detected or accurately quantified due to prozone phenomenon or in high viscosity samples using this immunoturbidimetric assay. Correlation with other laboratory results and clinical findings is recommended. The [place] Free Light Chain was performed using the Binding Site Optilite immunoturbidimetric method. Result obtained with different assay methods or kits cannot be used interchangeably. Performed By: #### 1 989-3 #### [facility] CLIA [id number] [address] [place] [address] [place] MONOCLONAL PROT UR W/INTERPo n 09-25-2024 STAFF REVIEW ([facility]) Reviewed by Derrick Rawls MD, Ph.D ([id number]) Normal [facility] Comment on above: Order Comment: Speci men Type: BLOOD SPECIMEN Ordering Facility: [facility] Address: [address] [place] [address] Performed By: #### C OPPER #### [facility] CLIA [id number] [address] [place] [address] [place] UMPA RESULT No M protein is identified. Normal No M protein is identified. [facility] Comment on above: Order Comment: Speci men Type: BLOOD SPECIMEN Ordering Facility: [facility] Address: [address] [place] [address] Performed By: #### C OPPER #### [facility] CLIA [id number] [address] [place] [address] OF [place] Methylmalonate SerPl-sCncon 09-25-2024 Methylmalonate [Moles/Vol] 0.12 umol/L Normal <=0.40 [facility] Comment on above: Order Comment: Speci men Type: BLOOD SPECIMEN Ordering Facility: [facility] Address: [address] [place] [address] Result Comment: This test was developed, and its performance characteristics determined by the [facility] Department of Pathology and Laboratory Medicine. It has not been cleared or approved by the FDA. The [facility] Department of Pathology and Laboratory Medicine is regulated under CLIA as qualified to perform high-complexity testing. This test is used for clinical purposes. It should not be regarded as investigational or for research. Performed By: #### C OPPER #### [facility] CLIA [id number] [address] [place] [address] [place] PROTEIN ELECTROPHORESIS SERU M (P)on 09-25-2024 Albumin [Mass/Vol] 4.60 g/dL Normal 3.43-5.41 [facility] Comment on above: Order Comment: Speci men Type: BLOOD SPECIMEN Ordering Facility: [facility] Address: [address] [place], [place] [address] Performed By: #### 2 284-8, 2885-2, 2132-03 #### [facility] CLIA [id number] 1 [place] [address] [place] Alpha 1 globulin Elph [Mass/Vol] 0.33 g/dL Normal 0.18-0.43 [facility] Comment on above: Order Comment: Speci men Type: BLOOD SPECIMEN Ordering Facility: [facility] Address: [address] [place] [address] Performed By: #### 2 284-8, 288-2, 2132-03 #### [facility] CLIA [id number] 1 [place] [address] [place] Alpha 2 globulin Elph [Mass/Vol] 0.76 g/dL Normal 0.42-0.98 [facility] Comment on above: Order Comment: Speci men Type: BLOOD SPECIMEN Ordering Facility: [facility] Address: [address] [place] [address] Performed By: #### 2 284-8, 288-2, 2132-03 #### [facility] CLIA [id number] 1 [place] [address] [place] Beta globulin Elph [Mass/Vol] 1.12 g/dL Normal 0.61-1.17 [facility] Comment on above: Order Comment: Speci men Type: BLOOD SPECIMEN Ordering Facility: [facility] Address: [address] [place] [address] Performed By: #### 2 284-8, 2885-2, 2132-03 #### [facility] CLIA [id number] 1 [place] [address] [place] Gamma globulin Elph [Mass/Vol] 1.28 g/dL Normal 0.53-1.51 [facility] Comment on above: Order Comment: Speci men Type: BLOOD SPECIMEN Ordering Facility: [facility] Address: [address] [place] [address] Performed By: #### 2 284-8, 2885-2, 2132-03 #### [facility] CLIA [id number] [address] INTERPRETATION COMMENT FOR PROTEIN ELECTROPHORESIS The atypical region is relatively poorly defined and may represent an unusual presentation of polyclonal immunoglobulins, but cannot rule out the presence of a low level M protein. If clinically indicated, monoclonal protein analysis and serum free light chain analysis are suggested to evaluate further for monoclonal gammopathy. Normal [facility] Comment on above: Order Comment: Medina peck Type: BLOOD SPECIMEN Ordering Facility: [facility] Address: [address] [place] [address] Performed By: #### 2 284-8, 2885-2, 2132-03 #### [facility] CLIA [id number] [address] M-PROTEIN LOCATION Normal [facility] Comment on above: Order Comment: [facility] Type: BLOOD SPECIMEN Ordering Facility: [facility] Address: [address] [place] [address] Result Comment: Not Applicable. Performed By: #### 2 284-8, 2885-2, 2132-03 #### [facility] CLIA [id number] [address] Protein Fractions [Interp] An atypical region of restricted mobility is identified on protein electrophoresis. Abnormal No definitive M protein is identified on protein electrophore sis. [facility] Comment on above: Order Comment: [facility] Type: BLOOD SPECIMEN Ordering Facility: [facility] Address: [address] [place] [address] Performed By: #### 2 284-8, 2885-2, 2132-03 #### [facility] CLIA [id number] [address] Protein.monoclonal Elph [Mass/Vol] 0.00 g/dL Normal <=0.00 [facility] Comment on above: Order Comment: [facility] Type: BLOOD SPECIMEN Ordering Facility: [facility] Address: [address] [place] [address] Performed By: #### 2 284-8, 2885-2, 2132-03 #### [facility] CLIA [id number] [address] [place] SPE STAFF REVIEW Reviewed by Derrick Rawls MD, Ph.D ([id number]) Normal [facility] Comment on above: Order Comment: Speci men Type: BLOOD SPECIMEN Ordering Facility: [facility] Address: [address] [place] [address] Performed By: #### 2 284-8, 2885-2, 9 #### [facility] CLIA [id number] 1 [place] [address] [place] Prot SerPl-mCncon 09-25-2024 Protein [Mass/Vol] 8.1 g/dL High 6.3-8.0 [facility] Comment on above: Order Comment: Speci men Type: BLOOD SPECIMEN Ordering Facility: [facility] Address: [address] [place] [address] Performed By: #### 2 284-8, 288-2, 9 #### [facility] CLIA [id number] [address] [place] Prot Ur-mCncon 09-25-2024 Protein (U) [Mass/Vol] 6 mg/dL Normal 0-20 [facility] Comment on above: Order Comment: Speci men Type: BLOOD SPECIMEN Ordering Facility: [facility] Address: [address] [place] [address] Performed By: #### 2 284-8, 2885-2, 9 #### [facility] CLIA [id number] [address] [place] URINE PROTEIN ELECTROPHORESI S RANDOM (P)on 09-25-2024 Albumin Elph (U) [Mass fraction] 39.64 % Normal [facility] Comment on above: Order Comment: Speci men Type: BLOOD SPECIMEN Ordering Facility: [facility] Address: [address] [place] [address] Performed By: #### C OPPER #### [facility] CLIA [id number] [address] [place], [place] [id number] [place] Alpha 1 globulin Elph (U) [Mass fraction] 3.33 % Normal [facility] Comment on above: Order Comment: Speci men Type: BLOOD SPECIMEN Ordering Facility: [facility] Address: [address] [place] [address] Performed By: #### C OPPER #### [facility] CLIA [id number] [address] [place] [address] [place] Alpha 2 globulin Elph (U) [Mass fraction] 15.07 % Normal [facility] Comment on above: Order Comment: Speci men Type: BLOOD SPECIMEN Ordering Facility: [facility] Address: [address] [place] [address] Performed By: #### C OPPER #### [facility] CLIA [id number] [address] [place] [address] [place] Beta globulin Elph (U) [Mass fraction] 22.71 % Normal [facility] Comment on above: Order Comment: Speci men Type: BLOOD SPECIMEN Ordering Facility: [facility] Address: [address] [place], [place] [address] Performed By: #### C OPPER #### [facility] CLIA [id number] [address] [place] [address] [place] Gamma globulin Elph (U) [Mass fraction] 19.25 % Normal [facility] Comment on above: Order Comment: Speci men Type: BLOOD SPECIMEN Ordering Facility: [facility] Address: [address] [place], [place] [address] Performed By: #### C OPPER #### [facility] CLIA [id number] [address] [place], [place] [address] [place] Protein Fractions Elph Kamaljit (U) [Interp] No definitive M protein is identified on protein electrophoresis. Normal No definitive M protein is identified on protein electrophore sis. [facility] Comment on above: Order Comment: Speci men Type: BLOOD SPECIMEN Ordering Facility: [facility] Address: [address] [place] [address] Performed By: #### C OPPER #### [facility] CLIA [id number] [address] [place], [place] [id number] [facility] STAFF REVIEW (URINE ELECTRO) Reviewed by Derrick Rawls MD, Ph.D ([id number]) Normal [facility] Comment on above: Order Comment: Speci men Type: BLOOD SPECIMEN Ordering Facility: [facility] Address: [address] [place] [address] Performed By: #### C OPPER #### [facility] CLIA [id number] [address] [place], [place] [address] [place] Vit B12 SerPl-ncon 05- 025 Cobalamin (Vitamin B12) [Mass/Vol] 1008 pg/mL Normal 232-1245 [facility] Comment on above: Order Comment: Speci men Type: BLOOD SPECIMEN Ordering Facility: [facility] Address: [address] [place] [address] Performed By: #### 2 284-8, 2885-2, 2132-9 #### [facility] CLIA [id number] [address] [place] Abdomen Single Viewon 2024 Abdomen Single View [facility] [address] [place] [address] [id number] Abdomen Single View MR#: [id number] Acct: [id number] Name: NAZARIO HUTTON Rep #: [id number] : 1950 M 73 From: Melba Garcia DO PCP: Dr. Valeriano Beasley MD Status: [facility] CLI Study: Abdomen Single View Date of Exam: 09/23/24 Exam# [id number] Ordering Dr: Geovani Barron MD PROCEDURE: ABDOMEN SINGLE VIEW REASON FOR EXAM: Kidney calculus TECHNIQUE: Supine and upright views of the abdomen. COMPARISON: CT of the abdomen and pelvis dated 09/06/2024 FINDINGS: Bowel gas pattern is normal. No evidence of bowel obstruction. No free air. 9 mm calculus projects over the right renal fossa, consistent with renal stones. The bones are unremarkable. RAD/Abdomen Single View IMPRESSION: Right renal stones. Reading Location: [facility] CC: Dr. Valeriano Beasley MD; Dr. Geovani Barron MD Industrial Editor: Signed Normal [facility] Gastroenterology Visit Repor ton 09-19-2024 Gastroenterology Visit Report [facility] [address] [place] [address] OFFICE VISIT Date of Service: 09/19/24 MR#: [id number] Acct: [id number] Name: NAZARIO HUTTON Rep #: [id number] : 1950 Provider: Dr. Shubham granados MD Age/Sex: 73/M Location: [facility] Status: Signed Intake Vital Signs 06/04/24 13:31 07/18/24 10:16 09/19/24 14:11 Height 5 ft 10 in 5 ft 10 in 5 ft 10 in Weight: 208 lb 8 oz BMI 29.9 BP 130/70 H Pulse 63 Pulse Oximetry (%) 97 Intake Visit Reasons: 3 M FU Chief Complaint: Fatty liver Allergies losartan Allergy (Severe, Verified 07/18/24 11:03) Angioedema hydrochlorothiazide Allergy (Verified 07/18/24 10:16) Hives Medications ???Medication ???Instructions ???Recorded ???Confirmed ???Type allopurinol 100 mg tablet 100 mg PO DAILY GOUT 03/25/2208/25 History atorvastatin 80 mg tablet 80 mg PO DAILY CHOLESTEOL 03/25/22 09/19/24 History ezetimibe 10 mg tablet 10 mg PO DAILY CHOLESTEROL 3 09/19/24 History nitroglycerin 0.4 mg sublingual 0.4 mg sublingual UD PRN Chest Lima n 09/02/22 09/19/24 History tablet ascorbic acid (vitamin C) 500 mg 1,000 mg (2 x 500 mg) PO BIDCM 30 09/09/22 09/19/24 Rx tablet days #120 tabs cholecalciferol (vitamin D3) 125 125 mcg PO DAILY 09/01/23 09/19/24 History mcg (5,000 unit) capsule omega 3-dha 100 mg-epa 400 mg-fish cap PO 09/01/23 09/19/24 History oil 1,000 mg capsule vitamin B complex (B 1 tab PO DAILY 09/01/23 04/15/24 H istory Complex-Vitamin B12 tablet) isosorbide mononitrate 30 mg 30 mg PO QAM 04/15/24 09/19/24 His tory tablet,extended release 24 hr amlodipine 5 mg tablet 5 mg PO QDAY 09/19/24 09/19/24 His tory carvedilol 12.5 mg tablet 12.5 mg PO BID 09/19/24 09/19/24 H istory fexofenadine 180 mg tablet 180 mg PO QDAY 09/19/24 09/19/24 H istory fluoxetine 40 mg capsule 40 mg PO QDAY 09/19/24 09/19/24 Hi story gabapentin 300 mg capsule 300 mg PO BID 09/19/24 09/19/24 Hi story spironolactone 25 mg tablet 12.5 mg (1/2 x 25 mg) PO DAILY 1 0 09/19/24 09/19/24 Rx month #30 tabs Have you fallen in the past year?: No PFSH Medical History High serum parathyroid hormone (PTH) Heart murmur Elevated alkaline phosphatase level Elevated PSA Diverticulosis AVM (arteriovenous malformation) of colon Vitamin D deficiency Gout Alcohol abuse Essential hypertension Chest pain Anxiety Depression Myocardial infarct Chest pain Acute blood loss anemia Bloody diarrhea Coronary artery disease Atherosclerotic heart disease of [place] coronary artery without angina pectoris ST elevation SD (STEMI) ( 11/29/21) Hyperlipidemia Hypertension Surgical History H/O colonoscopy S/P cataract extraction Presence of coronary angioplasty implant and graft ( 11/29/21) Family History Mother COPD (chronic obstructive pulmonary disease) Lung cancer Father Heart disease Hypertension Myocardial infarction age 53 following SD. Social History household members: none Smoking Status: Former smoker how long ago did patient quit smoking: Smoked from age 18, 1 ppd x 4 years and then quit. alcohol intake: current alcohol intake frequency: a few times a week Alcohol type: beer substance use type: does not use HPI HPI Chief Complaint: Fatty liver Details: NAZARIO HUTTON, is a 73 M who presents to the office today for fatty liver. NAZARIO HUTTON, is a 73 M who presents to the office today for follow up. Previously established with GI for lower GI bleeds. Pt referred by PCP for elevated LFTs and fatty liver. Pt has hx of alc ohol abuse following the of his a coulple years ago. States he currently drinks a few beers a day now. Pt denies any abdominal pain, heartburn or swelling. BM are normal once a day. Patient was drinking more after the of his about 6 packs/day in early 2021 but had cut down to few beers per day. Denies leg swelling, abdominal swelling, confusion or fall. OV 09.19.24 Pt here for f/u cirrhosis. Pt reports trouble swallowing, foggy brain, dizziness, and swelling in R foot and tongue occasionally. Abd pelvis CT 09.06.24- Cirrhotic morphology of the liver with steatosis and hepatomegaly Abd limited w/elastography 10.22.24 - 18.7 cm, 18.5 kPa MELD Na-9 METAVIR- F4 ROS Const Constitutional: No fatigue, fever(s), weakness or weight change ENT ENT: Positive for difficulty swallowing and other (Mild dysphagia to swallowing pills but no diffculty in food or drink) Resp Respiratory: No shortness of breath or wheezing Cardio (more content not included)... Normal [facility] AFP, Tumor Markeron 09-17-19 25 AFP TUMOR VASILE 2.8 ng/mL Normal 0.0-8.4 [facility] Comment on above: Order Comment: Test( s) [id number], Serum or Plasmawas developed and its performance characteristicsdetermined by [employer]. It has not been cleared or approvedby the Food and Drug Administration.N Result Comment: [employer] Electrochemiluminescence Immunoassay (ECLIA) Values obtained with different assay methods or kits cannot be used interchangeably. Results cannot be interpreted as absolute evidence of the presence or absence of malignant disease. This test is not interpretable in females. Performed By: #### L 500.2500, L100.0100 #### [facility] [address] [place], [address] GALLO w/ Reflex Mult Confirmon 09-17-2024 ANTI-DNA (DS)AB TNP Normal [facility] Comment on above: Performed By: #### L 3400.5105, L3200.1600, L503.7505, L509.7001 #### [facility] [address] [place], [address] ANTISCLERODERM TNP Normal [facility] Comment on above: Performed By: #### L 3400.5105, L3200.1600, L503.7505, L509.7001 #### [facility] [address] [place], [address] Anti-Smooth Muscle ABSon ANTISMOOTH MUSC 10 Units Normal 0-19 [facility] Comment on above: Order Comment: Test( s) [id number], Serum or Plasmawas developed and its performance characteristicsdetermined by [employer]. It has not been cleared or approvedby the Food and Drug Administration. Result Comment: Nega tive 0 - 19 Weak positive 20 - 30 Moderate to strong positive >30 Actin Antibodies are found in 52-85% of patients with autoimmune hepatitis or chronic active hepatitis and in 22% of patients with primary biliary cirrhosis. Performed By: #### L 3400.5105, L3200.1600, L503.7505, L509.7001 #### [facility] [address] [place], [address] Ceruloplasminon 09-17-2024 CERULOPLASMIN 25.6 mg/dL Normal 16.0-31.0 [facility] Comment on above: Order Comment: Test( s) [id number]-Ybhrvi, Serum or Plasmawas developed and its performance characteristicsdetermined by [employer]. It has not been cleared or approvedby the Food and Drug Administration. Performed By: #### L 500.2500, L100.0100 #### [facility] [address] [place], [address] Copper, Serum or Plasmaon COPPER, SERUM 119 ug/dL Normal 69-132 [facility] Comment on above: Order Comment: Test( s) [id number]-Hyblyq, Serum or Plasmawas developed and its performance characteristicsdetermined by [employer]. It has not been cleared or approvedby the Food and Drug Administration. Result Comment: Dete ction Limit = 5 Performed By: #### L 500.2500, L100.0100 #### [facility] [address] [place], [place], [id number] Haptoglobinon 09-17-2024 HAPTOGLOBIN 286 mg/dL Normal 34-355 [facility] Comment on above: Order Comment: Test( s) [id number]-Neyugt, Serum or Plasmawas developed and its performance characteristicsdetermined by [employer]. It has not been cleared or approvedby the Food and Drug Administration. Result Comment: Perf ormed at: [address] [id number] Manager [employer] Communications: José Miguel Alba PhD, Phone: [phone] Performed at: [facility] [id number] [employer]: Zafar Browne MD, Phone: [phone] Performed By: #### L 3400.5105, L3200.1600, L503.7505, L509.7001 #### [facility] [address] [place], [address] L501.5101on 09-17-2024 GGTP 150 IU/L Abnormal 0-65 [facility] Comment on above: Order Comment: Test( s) [id number]-Spfkqf, Serum or Plasmawas developed and its performance characteristicsdetermined by [employer]. It has not been cleared or approvedby the Food and Drug Administration. Performed By: #### L 3400.5105, L3200.1600, L503.7505, L509.7009 #### [facility] [address] [place], [address] Anti-Mitochondrial ABon 08-25 ANTIMITOCHON AB <20.0 Normal 0.0-20.0 [facility] Comment on above: Result Comment: Nega tive 0.0 - 20.0 Equivocal 20.1 - 24.9 Positive >24.9 Mitochondrial (M2) Antibodies are found in 90-96% of patients with primary biliary cirrhosis. Performed By: #### L 3400.5105, L3200.1600, L503.1992, L509.6249 #### [facility] [address] [place], [address] GALLO serumOrdered By: Shubham Blanco on 09-12-2024 Anti-Nuclear Antibody Screen Negative Negative [facility] Comment on above: Performed at: [place] [id number] Director: José Miguel Alba PhD, Phone: [phone] Absolute lymphocyte countOrd ered By: Shubham Blanco on 09-12-2024 Lymphocytes Auto (Unsp spec) [#/Vol] 0.77 10*3/uL Low 0.83-4.51 [facility] Absolute neutrophil countOrd ered By: Shubham Blanco on 09-12-2024 Neutrophils (Bld) [#/Vol] 5.1 10*3/uL 2.0-7.7 [facility] Actin IgG QnOrdered By: Nilda Blanco on 09-12-2024 Anti-Smooth Muscle Antibody 10 Units 0-19 [facility] Comment on above: Negative 0 - 19 Weak positive 20 - 30 Moderate to strong positive >30 Actin Antibodies are found in 52-85% of patients with autoimmune hepatitis or chronic active hepatitis and in 22% of patients with primary biliary cirrhosis. Albumin to globulin ratioOrd ered By: Shubham Blanco on 09-12-2024 Albumin/Globulin [Mass ratio] 0.8 {ratio} Low 0.9-2.4 [facility] Alpha fetoprotein measuremen t as tumor markerOrdered By: Shubham Blanco on 09-12-2024 Tumor Marker Alpha Fetoprotein 2.8 ng/mL 0.0-8.4 [facility] Comment on above: [employer] El ectrochemiluminescence Immunoassay(ECLIA)Values obtained with different assay methods or kits cannotbe used interchangeably. Results cannot be interpreted asabsolute evidence of the presence or absence of malignantdisease.This test is not interpretable in females. Ammoniaon 09-12-2024 Ammonia (P) [Moles/Vol] 30.0 umol/L Normal 11-32 [facility] Comment on above: Performed By: #### L 3400.5105, L3200.1600, L503.7505, L509.7001 #### [facility] [address] [place], [place], [id number] Automated lymphocyte count a s percentage of total leukocytesOrdered By: Shubham Blanco on 09-12-2024 Lymphocytes/100 WBC Auto (Unsp spec) 9.8 % Low 19-41 [facility] Basophil percentageOrdered B y: Shubham Blanco on 09-12-2024 Basophils/100 WBC (Bld) 0.6 % 0-1 [facility] Bilirubin directOrdered By: Shubham Blanco on 09-12-2024 Bilirubin.direct [Mass/Vol] 0.18 mg/dL 0.00-0.30 [facility] Bilirubin, Directon 09-12-19 25 Bilirubin.direct [Mass/Vol] 0.18 mg/dL Normal 0.00-0.30 [facility] Comment on above: Performed By: #### L 3400.5105, L3200.1600, L503.7505, L509.7001 #### [facility] [address] [place], [address] Bilirubin, totalOrdered By: Shubham Blanco on 09-12-2024 Bilirubin [Mass/Vol] 0.70 mg/dL 0.20-1.00 [facility] Comment on above: For patients on eltr ombopag therapy, use of Dimension [place] TBIL is not recommended. Blood urea nitrogen (BUN)/cr eatinine ratioOrdered By: Shubham Blanco on 09-12-2024 Urea nitrogen/Creatinine [Mass ratio] 15.3 mg/mg 05-12 [facility] C-reactive protein measureme nt by high sensitivity methodOrdered By: Shubham Blanco on 09-12-2024 C-Reactive Protein Extended Range 10.80 mg/L High 0.0-3.0 [facility] Comment on above: C-Reactive Protein ( CRP) provides useful information for thediagnosis, therapy and monitoring of inflammatory processesand associated diseases. For the evaluation of Relative Riskfor Cardiovascular Disease, a High Sensitivity CRP (HSCRP)should be ordered. C-reactive protein measurement by high sensitivity method 10.80 mg/L High 0.0-3.0 [facility] Comment on above: C-Reactive Protein ( CRP) provides useful information for thediagnosis, therapy and monitoring of inflammatory processesand associated diseases. For the evaluation of Relative Riskfor Cardiovascular Disease, a High Sensitivity CRP (HSCRP)should be ordered. CBC W/Diff, Automatedon 08-25 Absolute Lymph 0.77 X10 3/uL Low 0.83-4.51 [facility] Comment on above: Performed By: #### L 3400.5105, L3200.1600, L503.7505, L509.7001 #### [facility] [address] [place], [address] Absolute Neut 5.1 X10 3/uL Normal 2.0-7.7 [facility] Comment on above: Performed By: #### L 3400.5105, L3200.1600, L503.7505, L509.7001 #### [facility] [address] [place], [address] Basophils/100 WBC (Bld) 0.6 % Normal 0-1 [facility] Comment on above: Performed By: #### L 3400.5105, L3200.1600, L503.7505, L509.7001 #### [facility] [address] [place], [address] Eosinophils/100 WBC (Bld) 10.9 % High 0-5 [facility] Comment on above: Performed By: #### L 3400.5105, L3200.1600, L503.7505, L509.7001 #### [facility] [address] [place], [address] Erythrocyte distribution width (RBC) [Ratio] 13.2 % Normal 11.6-14.6 [facility] Comment on above: Performed By: #### L 3400.5105, L3200.1600, L503.7505, L509.7001 #### [facility] [address] [place], [address] Hematocrit (Bld) [Volume fraction] 41.0 % Normal 40-54 [facility] Comment on above: Performed By: #### L 3400.5105, L3200.1600, L503.7505, L509.7001 #### [facility] [address] [place], [address] Hemoglobin (Bld) [Mass/Vol] 13.9 g/dL Normal 13.0-16.5 [facility] Comment on above: Performed By: #### L 3400.5105, L3200.1600, L503.7505, L509.7001 #### [facility] [address] [place], [address] IG% 0.300 Normal 0.0-0.9 [facility] Comment on above: Result Comment: IG% - Immature Granulocytes (promyelocytes, myelocytes and metamyelocytes) > 1% indicates that a LEFT SHIFT is Present. Performed By: #### L 3400.5105, L3200.1600, L503.7505, L509.7001 #### [facility] [address] [place], [address] Lymphocytes/100 WBC (Bld) 9.8 % Low 19-41 [facility] Comment on above: Performed By: #### L 3400.5105, L3200.1600, L503.7505, L509.7001 #### [facility] [address] [place], [address] MCH (RBC) [Entitic mass] 34.0 pg High 27.0-32.0 [facility] Comment on above: Performed By: #### L 3400.5105, L3200.1600, L503.7505, L509.7001 #### [facility] [address] [place], [address] MCHC (RBC) [Mass/Vol] 33.9 g/dL Normal 32-36 [facility] Comment on above: Performed By: #### L 3400.5105, L3200.1600, L503.7505, L509.7001 #### [facility] [address] [place], [address] MCV (RBC) [Entitic vol] 100.2 fL High 80-94 [facility] Comment on above: Performed By: #### L 3400.5105, L3200.1600, L503.7505, L509.7001 #### [facility] [address] [place], [address] Monocytes/100 WBC (Bld) 13.9 % High 0-10 [facility] Comment on above: Performed By: #### L 3400.5105, L3200.1600, L503.7505, L509.7001 #### [facility] [address] [place], [address] Neutrophils/100 WBC (Bld) 64.5 % Normal 47-70 [facility] Comment on above: Performed By: #### L 3400.5105, L3200.1600, L503.7505, L509.7001 #### [facility] [address] [place], [address] Nucleated RBC (Bld) [#/Vol] 0 10*3/uL Normal 0-5 [facility] Comment on above: Performed By: #### L 3400.5105, L3200.1600, L503.7505, L509.7001 #### [facility] [address] [place], [address] Platelet mean volume (Bld) [Entitic vol] 10.1 fL Normal 6.2-12.0 [facility] Comment on above: Performed By: #### L 3400.5105, L3200.1600, L503.7505, L509.7001 #### [facility] [address] [place], [address] Platelets (Bld) [#/Vol] 220 10*3/uL Normal 150-450 [facility] Comment on above: Performed By: #### L 3400.5105, L3200.1600, L503.7505, L509.7001 #### [facility] [address] [place], [address] RBC (Bld) [#/Vol] 4.09 10*6/uL Low 4.6-6.2 [facility] Comment on above: Performed By: #### L 3400.5105, L3200.1600, L503.7505, L509.7001 #### [facility] [address] [place], [address] RDW SD 48.1 fl High 35.1-43.9 [facility] Comment on above: Performed By: #### L 3400.5105, L3200.1600, L503.7505, L509.7001 #### [facility] [address] [place], [address] WBC (Bld) [#/Vol] 7.9 10*3/uL Normal 4.4-11.0 [facility] Comment on above: Performed By: #### L 3400.5105, L3200.1600, L503.7505, L509.7001 #### [facility] [address] [place], [place], [id number] CRPon 09-12-2024 C-REACTIVE PROT 10.80 mg/L High 0.0-3.0 [facility] Comment on above: Result Comment: C-Re active Protein (CRP) provides useful information for the diagnosis, therapy and monitoring of inflammatory processes and associated diseases. For the evaluation of Relative Risk for Cardiovascular Disease, a High Sensitivity CRP (HSCRP) should be ordered. Performed By: #### L 3400.5105, L3200.1600, L503.7505, L509.7001 #### [facility] [address] [place], [address] Carbon dioxide measurementOr dered By: Shubham Blanco on 09-12-2024 CO2 [Moles/Vol] 24.0 mmol/L 21.0-32.0 [facility] Centromere B antibody assayO rdered By: Shubham Blanco on 09-12-2024 Centromere B Antibody TNP [facility] Comment on above: Test not performed CeruloplasminOrdered By: Gennaro Blanco on 09-12-2024 Ceruloplasmin 25.6 mg/dL 16.0-31.0 [facility] Chloride measurementOrdered By: Shubham Blanco on 09-12-2024 Chloride [Moles/Vol] 107 mmol/L 98-107 [facility] Chromatin antibody assayOrde red By: Shubham Blanco on 09-12-2024 [facility] on above: Test not performed Comprehensive Metabolic Prof ilon 09-12-2024 Albumin [Mass/Vol] 3.3 g/dL Normal 3.2-5.0 [facility] Comment on above: Performed By: #### L 3400.5105, L3200.1600, L503.7505, L509.7001 #### [facility] [address] [place], [place], [address] Albumin/Globulin [Mass ratio] 0.8 {ratio} Low 0.9-2.4 [facility] Comment on above: Performed By: #### L 3400.5105, L3200.1600, L503.7505, L509.7001 #### [facility] [address] [place], [address] ALK P 134 U/L High 45-117 [facility] Comment on above: Performed By: #### L 3400.5105, L3200.1600, L503.7505, L509.7001 #### [facility] [address] [place], [address] ALT [Catalytic activity/Vol] 36 U/L Normal 16-61 [facility] Comment on above: Performed By: #### L 3400.5105, L3200.1600, L503.7505, L509.7001 #### [facility] [address] [place], [address] AST [Catalytic activity/Vol] 38 U/L High 15-37 [facility] Comment on above: Performed By: #### L 3400.5105, L3200.1600, L503.7505, L509.7001 #### [facility] [address] [place], [address] Bilirubin [Mass/Vol] 0.70 mg/dL Normal 0.20-1.00 [facility] Comment on above: Result Comment: For patients on eltrombopag therapy, use of Dimension [place] TBIL is not recommended. Performed By: #### L 3400.5105, L3200.1600, L503.7505, L509.7001 #### [facility] [address] [place], [address] BUN/CRE 15.3 RATIO Normal 10-20 [facility] Comment on above: Performed By: #### L 3400.5105, L3200.1600, L503.7505, L509.7001 #### [facility] [address] [place], [address] CA,Total 9.6 mg/dL Normal 8.5-10.1 [facility] Comment on above: Performed By: #### L 3400.5105, L3200.1600, L503.7505, L509.7001 #### [facility] [address] [place], [address] Chloride [Moles/Vol] 107 mmol/L Normal 98-107 [facility] Comment on above: Performed By: #### L 3400.5105, L3200.1600, L503.7505, L509.7001 #### [facility] [address] [place], [address] CO2 [Moles/Vol] 24.0 mmol/L Normal 21.0-32.0 [facility] Comment on above: Performed By: #### L 3400.5105, L3200.1600, L503.7505, L509.7001 #### [facility] [address] [place], [address] Creatinine [Mass/Vol] 0.72 mg/dL Normal 0.70-1.30 [facility] Comment on above: Result Comment: The validity of the calculated GFR GFRAA in patients over 70 years has not been determined. Clinical correlation is essential. Performed By: #### L 3400.5105, L3200.1600, L503.7505, L509.7001 #### [facility] [address] [place], [address] EST GFR - AA 137 mL/min Normal >60 [facility] Comment on above: Result Comment: Afri can Greek GFR Calc Performed By: #### L 3400.5105, L3200.1600, L503.7505, L509.7001 #### [facility] [address] [place], [address] GAP 6 Normal 5-15 [facility] Comment on above: Performed By: #### L 3400.5105, L3200.1600, L503.7505, L509.7001 #### [facility] [address] [place], [address] GFR/1.73 sq M.predicted among non-blacks MDRD (S/P/Bld) [Vol rate/Area] 113 mL/min/{1.73_m2} Normal >60 [facility] Comment on above: Result Comment: Non- GFR Calc Performed By: #### L 3400.5105, L3200.1600, L503.7505, L509.7001 #### [facility] [address] [place], [address] Globulin (S) [Mass/Vol] 4.2 g/dL Normal 2.2-4.2 [facility] Comment on above: Performed By: #### L 3400.5105, L3200.1600, L503.7505, L509.7001 #### [facility] [address] [place], [address] Glucose [Mass/Vol] 91 mg/dL Normal 74-106 [facility] Comment on above: Performed By: #### L 3400.5105, L3200.1600, L503.7505, L509.7001 #### [facility] [address] [place], [address] Potassium [Moles/Vol] 4.4 mmol/L Normal 3.5-5.1 [facility] Comment on above: Performed By: #### L 3400.5105, L3200.1600, L503.7505, L509.7001 #### [facility] [address] [place], [address] Sodium [Moles/Vol] 137 mmol/L Normal 136-145 [facility] Comment on above: Performed By: #### L 3400.5105, L3200.1600, L503.7505, L509.7001 #### [facility] [address] [place], [address] T PROT 7.5 g/dL Normal 6.4-8.2 [facility] Comment on above: Performed By: #### L 3400.5105, L3200.1600, L503.7505, L509.7001 #### [facility] [address] [place], [address] Urea nitrogen [Mass/Vol] 11 mg/dL Normal 7-18 [facility] Comment on above: Performed By: #### L 3400.5105, L3200.1600, L503.7505, L509.7001 #### [facility] [address] [place], [address] Copper, serumOrdered By: Gennaro Blanco on 09-12-2024 Serum Copper 119 ug/dL 69-132 [facility] Comment on above: Detection Limit = 5 DNA double strand Ab Qn (S)O rdered By: Shubham Blanco on 09-12-2024 Anti-Double Strand DNA Antibody TNP [facility] Comment on above: Test not performed Eosinophil percentageOrdered By: Shubham Blanco on 09-12-2024 Eosinophils/100 WBC (Bld) 10.9 % High 0-5 [facility] Erythrocyte distribution wid th ratioOrdered By: Shubham Blanco on 09-12-2024 Erythrocyte distribution width (RBC) [Ratio] 13.2 % 11.6-14.6 [facility] Erythrocyte distribution wid th standard deviationOrdered By: Shubham Blanco on 09-12-2024 Erythrocyte distribution width (RBC) [Entitic vol] 48.1 fL High 35.1-43.9 [facility] Erythrocyte distribution width (RBC) [Ratio] 48.1 fl High 35.1-43.9 [facility] Estimated glomerular filtrat ion rate (GFR) AmericanOrdered By: Shubham Blanco on 09-12-2024 Estimated GFR (MDRD) Amer 137 mL/min >60 [facility] Comment on above: GFR Calc Ferritinon 09-12-2024 Ferritin [Mass/Vol] 106 ng/mL Normal 26-388 [facility] Comment on above: Performed By: #### L 3400.5105, L3200.1600, L503.7505, L509.7001 #### [facility] [address] [place], [place], [address] Ferritin measurementOrdered By: Shubham Blanco on 09-12-2024 Ferritin [Mass/Vol] 106 ng/mL 26-388 [facility] Gamma glutamyl transferase ( GGT) measurementOrdered By: Shubham Blanco on 09-12-2024 Amylase [Catalytic activity/Vol] 150 U/L High 0-65 [facility] Glomerular filtration rate ( GFR) estimationOrdered By: Shubham Blanco on 09-12-2024 Estimated GFR (MDRD) Non-Af Amer 113 mL/min >60 [facility] Comment on above: Non- GFR Calc GFR/1.73 sq M.predicted among non-blacks MDRD (S/P/Bld) [Vol rate/Area] 113 mL/min/{1.73_m2} >60 [facility] Comment on above: Non- GFR Calc Glucose measurementOrdered B y: Shubham Blanco on 09-12-2024 Glucose [Mass/Vol] 91 mg/dL 74-106 [facility] HBV surface IgG Ql (S)Ordere d By: Shubham Blanoc on 09-12-2024 Hepatitis B Surface Antibody Non-Reactive [facility] Comment on above: Non Reactive: Incons istent with immunity less than <10 mIU/mL Reactive: Consistent with immunity greater than or equal to 10 mIU/mL HaptoglobinOrdered By: Maritza Blanco on 09-12-2024 Haptoglobin 286 mg/dL 34-355 [facility] Comment on above: Performed at: - [email or web address] [address] [id number] Director: José Miguel Alba PhD, Phone: [phone] at: [facility] [id number] Director: Zafar Browne MD, Phone: [phone] Hematocrit Auto (Bld) [Volum e fraction]Ordered By: Shubham Blanco on 09-12-2024 Hematocrit (Bld) [Volume fraction] 41.0 % 40-54 [facility] Hemoglobin A1con 09-12-2024 HbA1c (Bld) [Mass fraction] 5.6 % Normal 3.8-5.6 [facility] Comment on above: Result Comment: Norm al < 5.7 % Prediabetic 5.7 - 6.4 % Diabetic >or= 6.5 % Please note range changes. Performed By: #### L 3400.5105, L3200.1600, L503.7505, L509.7001 #### [facility] [address] [place], [place], [address] Hemoglobin A1c percentageOrd ered By: Shubham Blanco on 09-12-2024 HbA1c (Bld) [Mass fraction] 5.6 % 3.8-5.6 [facility] Comment on above: Normal < 5.7 % Predi abetic 5.7 - 6.4 % Diabetic >or= 6.5 % Please note range changes. Hemoglobin measurementOrdere d By: Shubham Blanco on 09-12-2024 Hemoglobin (Bld) [Mass/Vol] 13.9 g/dL 13.0-16.5 [facility] Hepatitis B Surface Antibody on 09-12-2024 HEP B Surf Ab Non-Reactive Normal [facility] Comment on above: Result Comment: Non Reactive: Inconsistent with immunity less than <10 mIU/mL Reactive: Consistent with immunity greater than or equal to 10 mIU/mL Performed By: #### L 3890.6200 #### [facility] [address] [place], [place], [id number] Immature granulocytes/100 WB C Auto (Bld)Ordered By: Shubham Blanco on 09-12-2024 Immature granulocytes/100 WBC (Bld) 0.300 % 0.0-0.9 [facility] Comment on above: IG% - Immature Granu locytes (promyelocytes, myelocytes and metamyelocytes) > 1% indicates that a LEFT SHIFT is Present. International normalized rat io (INR) calculationOrdered By: Shubham Blanco on 09-12-2024 INR Coag (Bld) [Relative time] 1.0 {INR} [facility] Iron (Unsp spec) [Mass/Mass] Ordered By: Shubham Blanco on 09-12-2024 Iron [Mass/Vol] 77 ug/dL 65-175 [facility] Iron measurement (mass/mass) Ordered By: Shubham Blanco on 09-12-2024 Iron (Unsp spec) [Mass/Mass] 77 ug/dL 65-175 [facility] Iron saturation [Mass fracti on]Ordered By: Shubham Blanco on 09-12-2024 Iron Saturation 27.7 % 15.0-55.0 [facility] Iron+Iron Binding Capacityon 09-12-2024 Iron [Mass/Vol] 77 ug/dL Normal 65-175 [facility] Comment on above: Performed By: #### L 3400.5105, L3200.1600, L503.7505, L509.7001 #### [facility] [address] [place], [address] IRON SATURATION 27.7 Normal 15.0-55.0 [facility] Comment on above: Performed By: #### L 3400.5105, L3200.1600, L503.7505, L509.7001 #### [facility] [address] [place], [address] TIBC 278 ug/dL Normal 250-450 [facility] Comment on above: Performed By: #### L 3400.5105, L3200.1600, L503.7505, L509.7001 #### [facility] [address] [place], [address] Francia-1 antibody assayOrdered B y: Shubham Blanco on 09-12-2024 FRANCIA-1 Antibody TNP [facility] Comment on above: Test not performed Laboratory - Chemistry and C hemistry - challengeOrdered By: Shubham Blanco on 09-12-2024 AST [Catalytic activity/Vol] 38 U/L High 15-37 [facility] Lymphocytes Auto (Unsp spec) [#/Vol]Ordered By: Shubham Blanco on 09-12-2024 Lymphocytes (Bld) [#/Vol] 0.77 10*3/uL Low 0.83-4.51 [facility] Lymphocytes/100 WBC Auto (Un sp spec)Ordered By: Shubham Blanco on 09-12-2024 Lymphocytes/100 WBC (Bld) 9.8 % Low 19-41 [facility] MCV (mean corpuscular volume ) determinationOrdered By: Shubham Blanco on 09-12-2024 MCV (RBC) [Entitic vol] 100.2 fL High 80-94 [facility] Magnesiumon 09-12-2024 Magnesium [Mass/Vol] 2.0 mg/dL Normal 1.6-2.6 [facility] Comment on above: Performed By: #### L 3400.5105, L3200.1600, L503.7505, L509.7001 #### [facility] [address] [place], [address] Magnesium measurementOrdered By: Shubham Blanco on 09-12-2024 Magnesium [Mass/Vol] 2.0 mg/dL 1.6-2.6 [facility] Mean corpuscular hemoglobin (MCH) determinationOrdered By: Shubham Blanco on 09-12-2024 MCH (RBC) [Entitic mass] 34.0 pg High 27.0-32.0 [facility] Mean corpuscular hemoglobin concentration (MCHC) determinationOrdered By: Shubham Blanco on 09-12-2024 MCHC (RBC) [Mass/Vol] 33.9 g/dL 32-36 [facility] Mean platelet volume determi nationOrdered By: Shubham Blanco on 09-12-2024 Platelet mean volume (Bld) [Entitic vol] 10.1 fL 6.2-12.0 [facility] Mitochondria Ab Ql (S)Ordere d By: Shubhammary jo Blanco on 09-12-2024 Anti-Mitochondrial Antibody <20.0 Units 0.0-20.0 [facility] Comment on above: Negative 0.0 - 20.0 Equivocal 20.1 - 24.9 Positive >24.9Mitochondrial (M2) Antibodies are found in 90-96% ofpatients with primary biliary cirrhosis. Monocyte percentageOrdered B y: Shubham Blanco on 09-12-2024 Monocytes/100 WBC (Bld) 13.9 % High 0-10 [facility] Neutrophil percentageOrdered By: Shubham Blanco on 09-12-2024 Neutrophils/100 WBC (Bld) 64.5 % 47-70 [facility] Nucleated red blood cell per centageOrdered By: Shubham Blanco on 09-12-2024 Nucleated RBC/100 WBC (Bld) [Ratio] 0 % 0-5 [facility] Phosphoruson 09-12-2024 Phosphate [Mass/Vol] 3.4 mg/dL Normal 2.5-4.9 [facility] Comment on above: Performed By: #### L 3400.5105, L3200.1600, L503.7505, L509.7001 #### [facility] [address] [place], [address] Phosphorus measurementOrdere d By: Shubham Blanco on 09-12-2024 Phosphorus Level 3.4 mg/dL 2.5-4.9 [facility] Platelet countOrdered By: Tessa Blanco on 09-12-2024 Platelets (Bld) [#/Vol] 220 10*3/uL 150-450 [facility] Potassium measurementOrdered By: Shubham Blanco on 09-12-2024 Potassium [Moles/Vol] 4.4 mmol/L 3.5-5.1 [facility] Prothrombin Time w/INRon INR Coag (PPP) [Relative time] 1.0 {INR} Normal [facility] Comment on above: Performed By: #### L 3400.5105, L3200.1600, L503.7505, L509.7001 #### [facility] [address] [place], [address] PT Coag (PPP) [Time] 13.3 s Normal 11.7-14.9 [facility] Comment on above: Performed By: #### L 3400.5105, L3200.1600, L503.7505, L509.7001 #### [facility] [address] [place], [address] Prothrombin timeOrdered By: Shubham Blanco on 09-12-2024 PT Coag (PPP) [Time] 13.3 s 11.7-14.9 [facility] RBC Auto (Bld) [#/Vol]Ordere d By: Shubham Blanco on 09-12-2024 RBC (Bld) [#/Vol] 4.09 10*6/uL Low 4.6-6.2 [place] SALES TRAINING COORDINATOR abOrdered By: Shubham Goldman and on 09-12-2024 SALES TRAINING COORDINATOR Antibody [facility] Comment on above: Test not performed SCL-70 extractable nuclear A b Qn (S)Ordered By: Shubham Blanco on 09-12-2024 Scl-70 (Scleroderma) Antibody [facility] Comment on above: Test not performed SS-A IgG antibody assayOrder ed By: Shubham Blanco on 09-12-2024 SS-A/Ro IgG Antibody [facility] Comment on above: Test not performed SS-B IgG antibody assayOrder ed By: Shubham Blanco on 09-12-2024 SS-B/La IgG Antibody [facility] Comment on above: Test not performed Serum DNA double strand anti body assay (units/volume)Ordered By: Shubham Blanco on 09-12-2024 DNA double strand Ab Qn (S) [facility] Comment on above: Test not performed Serum Scl-70 antibody assay (units/volume)Ordered By: Shubham Blanco on 09-12-2024 SCL-70 extractable nuclear Ab Qn (S) [facility] Comment on above: Test not performed Serum anion gap measurementO rdered By: Shubham Blanco on 09-12-2024 Anion gap [Moles/Vol] 6 mmol/L 5-15 [facility] Serum globulin measurementOr dered By: Shubham Blanco on 09-12-2024 Globulin (S) [Mass/Vol] 4.2 g/dL 2.2-4.2 [facility] Serum hepatitis B virus surf jose antibody IgG detectionOrdered By: Shubham Blanco on 09-12-2024 HBV surface IgG Ql (S) Non-Reactive [facility] Comment on above: Non Reactive: Incons istent with immunity less than <10 mIU/mL Reactive: Consistent with immunity greater than or equal to 10 mIU/mL Serum mitochondria antibody detectionOrdered By: Shubham Blanco on 09-12-2024 Mitochondria Ab Ql (S) <20.0 Units 0.0-20.0 [facility] Comment on above: Negative 0.0 - 20.0 Equivocal 20.1 - 24.9 Positive >24.9Mitochondrial (M2) Antibodies are found in 90-96% ofpatients with primary biliary cirrhosis. Serum or plasma actin IgG an tibody assay (units/volume)Ordered By: Shubham Blanco on 09-12-2024 Actin IgG Qn 10 Units 0-19 [facility] Comment on above: Negative 0 - 19 Weak positive 20 - 30 Moderate to strong positive >30 Actin Antibodies are found in 52-85% of patients with autoimmune hepatitis or chronic active hepatitis and in 22% of patients with primary biliary cirrhosis. Serum or plasma alanine guevara otransferase (ALT) measurementOrdered By: Shubham Blanco on 09-12-2024 ALT [Catalytic activity/Vol] 36 U/L 16-61 [facility] Serum or plasma albumin reid urement (mass/volume)Ordered By: Shubham Blanco on 09-12-2024 Albumin [Mass/Vol] 3.3 g/dL 3.2-5.0 [facility] Serum or plasma alkaline adelfo sphatase measurementOrdered By: Shubham Blanco on 09-12-2024 ALP [Catalytic activity/Vol] 134 U/L High 45-117 [facility] Serum or plasma calcium reid urement (mass/volume)Ordered By: Shubham Blanco on 09-12-2024 Calcium [Mass/Vol] 9.6 mg/dL 8.5-10.1 [facility] Serum or plasma creatinine m easurement (mass/volume)Ordered By: Shubham Blanco 09-12-2024 Creatinine [Mass/Vol] 0.72 mg/dL 0.70-1.30 [facility] Comment on above: The validity of the calculated GFR & GFRAA in patients over 70 years has not been determined. Clinical correlation is essential. Serum or plasma iron saturat ion measurement (mass fraction)Ordered By: Shubham Blanco on 09-12-2024 Iron saturation [Mass fraction] 27.7 % 15.0-55.0 [facility] Serum or plasma urea nitroge n measurement (mass/volume)Ordered By: Shubham Blanco on 09-12-2024 Urea nitrogen [Mass/Vol] 11 mg/dL 7-18 [facility] Schultz antibody assayOrdered By: Shubham Blanco on 09-12-2024 SM Antibody TNP [facility] Comment on above: Test not performed Sodium levelOrdered By: Nilda Blanco on 09-12-2024 Sodium [Moles/Vol] 137 mmol/L 136-145 [facility] TIBCOrdered By: Shubham granados on 09-12-2024 Total Iron Binding Capacity 278 ug/dL 250-450 [facility] Total proteinOrdered By: Gennaro Blanco on 09-12-2024 Protein [Mass/Vol] 7.5 g/dL 6.4-8.2 [facility] Venous blood ammonia measure mentOrdered By: Shubham Blanco on 09-12-2024 Ammonia (P) [Moles/Vol] 30.0 umol/L -32 [facility] White blood cell (WBC) count Ordered By: Shubham Blanco on 09-12-2024 WBC (Bld) [#/Vol] 7.9 10*3/uL 4.4-11.0 [facility] CT Abd/Pelvis W/WO Contrasto n 09-06-2024 CT Abd/Pelvis W/WO Contrast [facility] [address] [place] [id number] Abd/Pelvis W/WO Contrast MR#: [id number] Acct: [id number] Name: NAZARIO HUTTON Rep #: [id number] : 1950 M 73 From: Teodoro Hill MD PCP: Dr. Valeriano Beasley MD Status: REG CLI Study: CT Abd/Pelvis W/WO Contrast Date of Exam: 08/24 11/15 Exam# [id number] Ordering Dr: Shubham Blanco MD PROCEDURE: CT ABD/PELVIS W/WO CONTRAST REASON FOR EXAM: Cirrhosis of the liver TECHNIQUE: Abdomen and pelvis CT before and following intravenous contrast. COMPARISON: 08/28/2023; 05/14/2024 FINDINGS: Lower chest: The heart is enlarged with extensive coronary artery calcifications. Liver: Lobular hepatic contour present and steatosis. The liver is enlarged measuring 20.3 cm in craniocaudal dimension. There is a peripheral wedge-shaped vascular shunt in the anterior aspect of the lower right hepatic lobe, best seen on image 43 of series 4, which is stable from the previous exam. No arterial enhancing lesions or washout identified. Biliary/gallbladder: The gallbladder is nondistended. Pancreas: Unremarkable. Spleen: There are numerous punctate calcifications in the spleen, likely due to remote granulomatous disease. Adrenal glands: Unremarkable. Kidneys: There is mild left-sided hydronephrosis with an obstructing 6.5 mm calculus in the distal left ureter. There are numerous bilateral nonobstructing renal calculi within the kidneys. The dominant calculus is in the lower pole of the right kidney measuring 1.1 cm. There is mild renal cortical atrophy in the lower pole of the right kidney. A couple of tiny cystic lesions are present in the kidneys bilaterally. Gastrointestinal/peritoneu m: No acute abnormality.Moderate colonic diverticulosis is present.The appendix is unremarkable.No free air or free fluid. Vascular: Advanced scattered atherosclerotic calcifications. Lymph nodes: No enlarged lymph nodes by CT size criteria. Pelvic organs: The prostate gland is mildly enlarged. Bladder: Mild diffuse bladder wall thickening. Bones: Mild multilevel degenerative changes are present in the visualized spine. Soft tissues: Unremarkable. CT/CT Abd/Pelvis W/WO Contrast IMPRESSION: 1. Peripheral right lobe hepatic lesion consistent with a vascular shunt, stable from the previous exam. No new or worrisome hepatic lesions identified. 2. Mild left hydronephrosis with an obstructing calculus at the distal left ureter measuring 6.5 mm. 3. Mild diffuse bladder wall thickening, possibly due to chronic bladder outlet obstruction in the setting of prostatomegaly versus cystitis. 4. Nephrolithiasis. 5. Cirrhotic morphology of the liver with steatosis and hepatomegaly. 6. Other chronic findings in the body of the report. Reading Location: [place] CC: Dr. Valeriano Beasley MD; Dr. Shubham Blanco MD Industrial Editor: Signed Normal [facility] 09-03-2024 [facility] Telephone (JOSE JUAN) -- NAZARIO HUTTON ([id number]) 1950 M Date Time Provider Department 09/03/24 PATRIA KHANNA JR During your visit today, we recorded the following information about you: Bhavani Turk LPN 09/03/2024 7:53 AM Signed ----- Message from Patria Khanna MD sent at 09/02/2024 4:06 PM EST ----- Please let patient know that given the findings of his lab work thus far, I am concerned for a plasma cell disorder, and would like to arrange an evaluation by hematology. If he agrees, I will place consult. Allergies As of Date: 09/03/2024 Noted Allergy Reaction ARB-ANGIOTENSIN RECEPTOR ANTAGONI*07/31/2024 14 - Other: See Comments Comments: angioedema SERTRALINE 07/31/2024 14 - Other: See Comments Comments: angioedema HCTZ (HYDROCHLOROTHIAZIDE) 03/04/2008 16 - Unknown Comments: rash Date Reviewed: 08/30/2024 Reviewed by: Patria Khanna Jr., MD - Fully Assessed Prescriptions as of 09/03/2024 - gabapentin (NEURONTIN) 300 mg capsule Take 1 capsule by mouth two times a day for 90 days. - fexofenadine (MARII) 180 mg tablet Take 1 tablet by mouth once daily. - fexofenadine (MARII ALLERGY) 180 mg tablet Take 1 tablet by mouth once daily. - carvedilol (COREG) 12.5 mg tablet Take 1 tablet by mouth two times a day with meals. - carvedilol (COREG) 12.5 mg tablet Take 1 tablet by mouth two times a day with meals. - FLUoxetine (PROZAC) 40 mg capsule Take 1 capsule by mouth once daily. - FLUoxetine (PROZAC) 40 mg capsule Take 1 capsule by mouth once daily. - allopurinol (ZYLOPRIM) 100 mg tablet TAKE 1 TABLET BY MOUTH ONCE DAILY. FOR GOUT. - allopurinol (ZYLOPRIM) 100 mg tablet TAKE 1 TABLET BY MOUTH ONCE DAILY. FOR GOUT. - amLODIPine (NORVASC) 5 mg tablet Take 1 tablet by mouth once daily. - ezetimibe (ZETIA) 10 mg tablet Take 1 tablet by mouth once daily. - Blood Pressure Monitor 1 Each once daily. - isosorbide mononitrate ER (IMDUR) 30 mg 24 hr tablet Take 1 tablet by mouth once daily. Per [facility] - atorvastatin (LIPITOR) 80 mg tablet TAKE [...] capsule by mouth daily at bedtime. - VITAMIN B COMPLEX (B COMPLEX 1 ORAL) Take by mouth. - diphenhydrAMINE (BENADRYL) 25 mg capsule Take 25 mg by mouth every 6 hours as needed. 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] 03/15/2021 Elevated PSA [...] L5 [M54.17] 07/10/2023 Kidney lesion [N28.9] 08/21/2023 Liver fibrosis [K74.00] 05/15/2024 Alcoholic cirrhosis (HCC) [K70.30] 06/05/2024 Encounter Status:Closed by JESUS ALBERTO GUZMAN on 09/03/24 Normal [facility] CNOVon 08-30-2024 CNOV Office Visit (NEMOWS ) -- NAZARIO HUTTON ([id number]) 1950 M Date Time Provider Department 08/30/24 3:20 PM PATRIA KHANNA JR During your visit today, we recorded the following information about you: Pulse Blood pressure Weight 64/minute 145/84 93.1 kg Jesus Alberto Guzman LPN 08/30/2024 4:02 PM Signed 08/29/2024 PROMIS [facility] Physical Health Summary Physical health: Good Everyday physical activity, ability: Mostly Fatigue: Moderate Pain level: 5 General health: Good Social activities/roles, ability: Good Physical Health T-Score 42.3 (Good) Physical Health Percentile 22 [facility]OM[facility] Mental Health Summary Quality of life: Good Mental health (mood,thinking): Good Social satisfaction: Good Emotional problems (anxious,depressed): Sometimes Mental Health T-Score 43.5 (Good) Mental Health Percentile 26 Percentiles provide an indication of how a patient's score ranks in relation to the [place] general population. > 31st percentile is within normal limits or better *< 31st percentile is at least ? SD worse than population, which may be clinically relevant < 16th percentile is at least 1 SD worse than population and warrants attention 08/29/2024 Sleep Apnea Probability Snores loudly: No Tired, fatigued or sleepy in daytime: Yes Stops breathing or choking/gasping during sleep: No High blood pressure: Yes Sleep Apnea Probability Score: 67 (Recommend sleep study) Patria Khanna Jr., MD 08/30/2024 4:02 PM Signed ESTABLISHED PATIENT VISIT CHIEF COMPLAINT: Follow Up HISTORY OF PRESENT ILLNESS: Nazario Hutton is a 73 year old male, BMI 30.57 kg/m2 with a PMH significant for and per last office visit note of 01/01/24: 1. Balance problems - ICD9: 781.99, ICD10: R26.89 (primary diagnosis) 2. Abnormality of gait - ICD9: 781.2, ICD10: R26.9 3. Numbness - ICD9: 782.0, ICD10: R20.0 4. Neuropathy - ICD9: 355.9, ICD10: G62.9 5. Other symptoms and signs involving the nervous system - ICD9: 781.99, ICD10: R29.818 6. History of CAD (coronary artery disease) - ICD9: V12.59, ICD10: Z86.79 7. History of coronary artery stent placement - ICD9: V45.82, ICD10: Z95.5 Patient with symptoms as above that have been of uncertain etiology. Ddx at this time would include the following: Given acute onset of symptoms, and there occurring in the setting of SD/cardiac condition, do need to be concerned that ataxia or sense of imbalance may be secondary to cardio embolic stroke. While exam non-focal at this time, may have still had a posterior fossa stroke 2 years ago resulting in chronic symptoms. To further evaluate will have patient undergo MRI brain with MRA head and neck to evaluate for stroke as well as large vessel disease. In process, will also be evaluating for VBI which too could result in symptoms of imbalance. Based on stocking glove pattern of numbness, as well as sensory deficits on exam, also need to consider possible small fiber neuropathy with possible superimposed early large fiber neuropathy (low B12). Sensory deficits might result in sensation of unsteadiness, but also may have some degree of autonomic dysfunction as well although orthostatics negative during visit. Discussed further diagnostic options. I do not see benefit of repeating EMG/NCV as will not flower picker small fiber disorder and still too early in large fiber symptoms to be of benefit. 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 No substantial white matter disease for the patient's age. Findings are concerning for high-grade flow-limiting stenosis of the mid left common carotid artery, although this may be artifactual in etiology. Recommend CTA of the neck for further evaluation. To follow up MRA fidnings, CTA head and neck performed on 02/08/24 and per rad report: IMPRESSION: No hemodynamically significant stenosis of the extracranial carotid or vertebral artery segments. Specifically, no significant narrowing of the LEFT common iliac artery as queried on prior MRA. No large vessel occlusion, high-grade stenosis, or aneurysm within the major intracranial arteries. Imaging reviewed with pt. GALLO was + with elevated DNA ab. SPEP raised question of polyclonal immunoglobs vs low level M. Reports balance not worse since last visit but also no better. No falls. Difficulties balance getting up from a chair. No vertigo, no lightheadedness. Just feels off. Still feels gait is guarded. Again no falls. Feet still numb and thinks that has gotten w (more content not included)... Normal [facility] KAPPA/NEUMANN,FREE,SERon 2024 Immunoglobulin light chains.kappa.free (S) [Mass/Vol] 38.8 mg/L High 3.3-19.4 [facility] Comment on above: Order Comment: Medina peck Type: BLOOD SPECIMEN Ordering Facility: [facility] Address: [address] [place] [address] Result Comment: Rare ly, increased serum free light chains levels may not be detected or accurately quantified due to prozone phenomenon or in high viscosity samples using this immunoturbidimetric assay. Correlation with other laboratory results and clinical findings is recommended. The [place] Free Light Chain was performed using the Binding Site Optilite immunoturbidimetric method. Result obtained with different assay methods or kits cannot be used interchangeably. Performed By: #### 2 284-8, 9735-2, 2132-03 #### [employer] [employer] CLIA [id number] [address] [place] [address] [place] [facility] Immunoglobulin light chains.kappa/Immunogl obulin light chains.lambda (S) [Mass ratio] 1.24 Normal 0.26-1.65 [facility] Comment on above: Order Comment: Medina peck Type: BLOOD SPECIMEN Ordering Facility: [facility] Address: [address] [place] [address] Performed By: #### 2 284-8, 2885-2, 2132-03 #### [facility] CLIA [id number] [address] [place] [address] [place] Immunoglobulin light chains.lambda.free [Mass/Vol] 31.4 mg/L High 5.7-26.3 [facility] Comment on above: Order Comment: Speci men Type: BLOOD SPECIMEN Ordering Facility: [facility] Address: [address] [place] [address] Result Comment: Rare ly, increased serum free light chains levels may not be detected or accurately quantified due to prozone phenomenon or in high viscosity samples using this immunoturbidimetric assay. Correlation with other laboratory results and clinical findings is recommended. The [place] Free Light Chain was performed using the Binding Site Optilite immunoturbidimetric method. Result obtained with different assay methods or kits cannot be used interchangeably. Performed By: #### 2 284-8, 2885-2, 2132-03 #### [facility] CLIA [id number] [address] [place] [address] [place] PROTEIN ELECTROPHORESIS SERU M (P)on 08-30-2024 Albumin [Mass/Vol] 4.18 g/dL Normal 3.43-5.41 [facility] Comment on above: Order Comment: Speci men Type: BLOOD SPECIMEN Ordering Facility: [facility] Address: [address] [place] [address] Performed By: #### 2 284-8, 2885-2, 2132-03 #### [employer] CLIA [id number] [address] [place] [address] [place] Alpha 1 globulin Elph [Mass/Vol] 0.38 g/dL Normal 0.18-0.43 [facility] Comment on above: Order Comment: Speci men Type: BLOOD SPECIMEN Ordering Facility: [facility] Address: [address] [place] [address] Performed By: #### 2 284-8, 2885-2, 2132-03 #### [facility] CLIA [id number] [address] [place] Alpha 2 globulin Elph [Mass/Vol] 0.87 g/dL Normal 0.42-0.98 [facility] Comment on above: Order Comment: Speci men Type: BLOOD SPECIMEN Ordering Facility: [facility] Address: [address] [place] [address] Performed By: #### 2 284-8, 2885-2, 2132-03 #### [facility] CLIA [id number] [address] [place] Beta globulin Elph [Mass/Vol] 1.05 g/dL Normal 0.61-1.17 [facility] Comment on above: Order Comment: Speci men Type: BLOOD SPECIMEN Ordering Facility: [facility] Address: [address] [place] [address] Performed By: #### 2 284-8, 2882, 2132-03 #### [employer] CLIA [id number] [address] [place] [address] [place] [facility] Gamma globulin Elph [Mass/Vol] 1.12 g/dL Normal 0.53-1.51 [facility] Comment on above: Order Comment: Speci men Type: BLOOD SPECIMEN Ordering Facility: [facility] Address: [address] [place] [address] Performed By: #### 2 284-8, 2884-08, 2132-03 #### [facility] CLIA [id number] [address] [place] [address] [place] INTERPRETATION COMMENT FOR PROTEIN ELECTROPHORESIS The atypical region is relatively poorly defined and may represent an unusual presentation of polyclonal immunoglobulins, but cannot rule out the presence of a low level M protein. If clinically indicated, monoclonal protein analysis and serum free light chain analysis are suggested to evaluate further for monoclonal gammopathy. Normal [facility] Comment on above: Order Comment: Speci men Type: BLOOD SPECIMEN Ordering Facility: [facility] Address: [address] [place], [place] [address] Performed By: #### 2 284-8, 288-2, 2132-03 #### [facility] CLIA [id number] [address] STATES [facility] M-PROTEIN LOCATION Normal [facility] Comment on above: Order Comment: Speci men Type: BLOOD SPECIMEN Ordering Facility: [facility] Address: [address] [place] [address] Result Comment: Not Applicable. Performed By: #### 2 284-8, 2885-2, 2132-03 #### [facility] CLIA [id number] [address] [place] Protein Fractions [Interp] An atypical region of restricted mobility is identified on protein electrophoresis. Abnormal No definitive M protein is identified on protein electrophore sis. [facility] Comment on above: Order Comment: Speci men Type: BLOOD SPECIMEN Ordering Facility: [facility] Address: [address] [place] [address] Performed By: #### 2 284-8, 2885-2, 2132-03 #### [facility] CLIA [id number] [address] [place] Protein.monoclonal Elph [Mass/Vol] 0.00 g/dL Normal <=0.00 [facility] Comment on above: Order Comment: Speci men Type: BLOOD SPECIMEN Ordering Facility: [facility] Address: [address] [place] [address] Performed By: #### 2 284-8, 288-2, 2132-03 #### [facility] CLIA [id number] [address] [place] SPE STAFF REVIEW Reviewed by Lizbeth navarrete M.D. Normal [facility] Comment on above: Order Comment: Speci men Type: BLOOD SPECIMEN Ordering Facility: [facility] Address: [address] [place] [address] Performed By: #### 2 284-8, 2885-2, 2132-03 #### [facility] CLIA [id number] [address] [place] Prot SerPl-mCncon 08-30-2024 Protein [Mass/Vol] 7.6 g/dL Normal 6.3-8.0 [facility] Comment on above: Order Comment: Speci men Type: BLOOD SPECIMEN Ordering Facility: [facility] Address: [address] [place], [place] [address] Performed By: #### C OPPER #### [facility] CLIA [id number] [address] [place] [address] [place] C4 COMPLEMENTon 08-20-2024 Complement C4 [Mass/Vol] 32 mg/dL 13 - 46 mg/dL [facility] Complement C4 [Mass/Vol]on 0 08-20-2024 Interpretation and review of laboratory results Normal [facility] C4 SerPl-mCncon 08-19-2024 Complement C4 [Mass/Vol] 32 mg/dL Normal 13-46 [facility] Comment on above: Order Comment: Speci men Type: BLOOD SPECIMEN Ordering Facility: [facility] Address: [facility] [place] [address] Performed By: #### 4 498-2 #### [facility] CLIA [id number] [address] [place] [address] CNOVon 08-19-2024 CNOV Office Visit (ALLMED ) -- NAZARIO HUTTON ([id number]) 1950 M Date Time Provider Department 08/19/24 1:30 PM ARUN CHRISTIAN During your visit today, we recorded the following information about you: Pulse Blood pressure Weight 55/minute 95/61 93.5 kg Olga Marcial RN 08/21/2024 3:38 PM Signed Per patient his first reaction was in March, his tongue began to swell. States his doctor attempted changing his medication but then he had another incident in June. Patient states he has no previous history of allergic reactions. Patient states that medications were changed again in July from Atenolol to Cervedilol and Sertraline to FLUoxetine. Arun Christian DO 08/21/2024 3:38 PM Signed Allergy and Immunology DATE OF SERVICE: 08/21/2024 PRIMARY CARE PHYSICIAN: Valeriano Beasley MD REFERRING PROVIDER: Valeriano Beasley Consultation requested for an allergy/immunology evaluation. My final impression and recommendations will be communicated back to the requesting physician by way of shared medical record, fax, or US mail. CHIEF COMPLAINT: Facial Swelling HISTORY OF PRESENT ILLNESS: Nazario Hutton is a 73 year old male who presents for evaluation of swelling episodes Has had 2 episodes of isolated tongue angioedema in the last 6 months Mar 29 2024, awoke at 9 am with acute progressive tongue swelling that lasted until 5 pm Went to the ER, where he was given solumedrol, benadryl, pepcid, and discharged on steroid pack and H1/H2 blockers. He was on Losartan at the time, and was subsequently taken off and switched to amlodipine for BP control. July 18, 2024, awoke at 9 am with acute progressive tongue swelling that lasted until noon Went to the ER a little sooner this time and had the same treatment of steroids, H1/H2 blockers. In follow up with PCP he was switched off sertraline to prozac because of reports of angioedema side effects with sertraline. Was on lisinopril years ago but never had swelling side effects Denies hx of hives or angioedema previously No asthma, or significant rhinitis Data reviewed: ER encounters 03/29/24, 07/18/24 PCP encounters 04/04/24, 07/31/24 Social Hx: Social History Tobacco Use Smoking status: Never Smokeless tobacco: Never Substance Use Topics Alcohol use: Yes Drug use: No Employer And Job Title: None on file Years Of Education Completed: Not specified Marital Status: PAST MEDICAL HISTORY Diagnosis Date Advance directive discussed with patient 04/18/2022 Discussed 03/2022 Alcohol abuse 09/14/2022 6 beers a day since passed in early 2021 Alcoholic cirrhosis (HCC) 06/05/[address] Francis Ash 12/08/2014 AVM (arteriovenous malformation) of colon 09/14/[address] Chacon BENIGN HYPERTENSION 03/04/2008 Coronary artery disease due to lipid rich plaque 12/06/[address] Edwards , cardio [facility] Diverticulosis 09/05/2022 Elevated alkaline phosphatase level 09/03/2017 Elevated PSA 03/17/2021 Heart murmur, systolic 08/01/2018 High serum parathyroid hormone (PTH) 08/01/[address] elevation myocardial infarction (STEMI) 12/06/2021 Hyperuricemia 10/30/[address] 04/18/2022 DPA: Jae (son) Low serum vitamin B12 05/18/2023 Low vitamin D level 03/15/2021 Lumbosacral radiculopathy at L5 07/10/2023 Medicare annual wellness visit, subsequent 03/15/2021 Medicare Part B: Not able to find. 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 Floyd, repeat 10 yrs REMV CATARACT EXTRACAP,INSERT LENS Bilateral 07/2022 Current Outpatient Medications Medication Sig carvedilol (COREG) 12.5 mg tablet Take 1 tablet by mouth two times a day with meals. FLUoxetine (PROZAC) 40 mg capsule Take 1 capsule by mouth once daily. allopurinol (ZYLOPRIM) 100 mg tablet TAKE 1 TABLET BY MOUTH ONCE DAILY. FOR (more content not included)... Normal [facility] CNOVon 07-31-2024 CNOV Office Visit (FAMPWS ) -- NAZARIO HUTTON ([id number]) 1950 M Date Time Provider Department 07/31/24 7:00 PM VALERIANO BEASLEY During your visit today, we recorded the following information about you: Pulse Respiration Blood pressure Weight 68/minute 16/minute 126/74 94.8 kg Valeriano Beasley MD 07/31/2024 8:45 PM Signed Chief Complaint Patient presents with: ED Follow-up HPI Nazario Hutton is a 73 year old male who presents here today for ER Follow Up.. Patient was sent home on prednisone and pepcid. Patient did not feel shortness of breath and never had difficulty swallowing or breathing and his throat did not feel like it was closing up. Looking up his meds one that can cause angioedema and his sertraline listed as such. Prozac does not have this listed as a side affect. Past medical history, appointments, medications, allergies reviewed. Previous Medical History PAST MEDICAL HISTORY Diagnosis Date Advance directive discussed with patient 04/18/2022 Discussed 03/2022 Alcohol abuse 09/14/2022 6 beers a day since passed in early 2021 Anxiety 12/08/2014 AVM (arteriovenous malformation) of colon 09/14/[address] Chacon BENIGN HYPERTENSION 03/04/2008 Coronary artery disease due to lipid rich plaque 12/06/[address] Edwards , cardio [place] Diverticulosis 09/05/2022 Elevated alkaline phosphatase level 09/03/2017 Elevated PSA 03/17/2021 Heart murmur, systolic 08/01/2018 High serum parathyroid hormone (PTH) 08/01/[address] elevation myocardial infarction (STEMI) 12/06/2021 Hyperuricemia 10/30/[address] 04/18/2022 DPA: Jae (son) Low serum vitamin B12 05/18/2023 Low vitamin D level 03/15/2021 Lumbosacral radiculopathy at L5 07/10/2023 Medicare annual wellness visit, subsequent 03/15/2021 Medicare Part B: Not able to find. 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 FOR GOUT. sertraline (ZOLOFT) 100 mg tablet Take one tablet by mouth daily sertraline (ZOLOFT) 100 mg tablet Take one tablet by mouth daily allopurinol (ZYLOPRIM) 100 mg tablet TAKE 1 TABLET BY MOUTH ONCE DAILY. FOR GOUT. carvedilol (COREG) 12.5 mg tablet Take 1 tablet by mouth two times a day with meals. Per [facility], Dr. Blanco amLODIPine (NORVASC) 5 mg tablet Take 1 tablet by mouth once daily. ezetimibe (ZETIA) 10 mg tablet Take 1 tablet by mouth once daily. Blood Pressure Monitor 1 Each once daily. isosorbide mononitrate ER (IMDUR) 30 mg 24 hr tablet Take 1 tablet by mouth once daily. Per [facility] atorvastatin (LIPITOR) 80 mg tablet TAKE 1 [...] 1 capsule by mouth daily at bedtime. VITAMIN B COMPLEX (B COMPLEX 1 ORAL) Take by mouth. diphenhydrAMINE (BENADRYL) 25 mg capsule Take 25 mg by mouth every 6 hours as needed. No current facility-administered medications on file prior to visit. Social History Social History Tobacco Use Smoking status: Never Smokeless tobacco: (more content not included)... Normal [facility] Emergency Department Summary on 07-18-2024 Emergency Department Summary [facility] Medical Records Department [address] [place] [address] Emergency Department Summary 07/18/24 MR#: [id number] Acct: [id number] Name: NAZARIO HUTTON Rep #: [id number] : 1950 73 From: Stan Gilbert DO PCP: Dr. Valeriano Beasley MD Status:DEP ER Location: ED HPI History of Present Illness Chief Complaint: Allergic Reaction Informant: patient Narrative Narrative: 73-year-old male presenting to the emergency room with tongue swelling. Patient states that shortly after getting up this morning he began to notice that the left side of his tongue was swollen. This happened to him once before in March of this year. He states he is not currently on an JOSE inhibitor. He notes the tongue is getting in the way of him speaking normally. He is not having any drooling or wheezing. He denies any rash. [facility] Medical History High serum parathyroid hormone (PTH) Heart murmur Elevated alkaline phosphatase level Elevated PSA Diverticulosis AVM (arteriovenous malformation) of colon Vitamin D deficiency Gout Alcohol abuse Essential hypertension Chest pain Anxiety Depression Myocardial infarct Chest pain Acute blood loss anemia Bloody diarrhea Coronary artery disease Atherosclerotic heart disease of [place] coronary artery without angina pectoris ST elevation SD (STEMI) ( 11/29/21) Hyperlipidemia Hypertension Home Medications ???Medication ???Instructions ???Recorded ???Last Taken ???Type allopurinol 100 mg tablet 100 mg PO DAILY GOUT 03/25/22 09/02/22 History atenolol 50 mg tablet 50 mg PO DAILY HEART 03/25/22 09/02/22 History atorvastatin 80 mg tablet 80 mg PO DAILY CHOLESTEOL 03/25/22 09/01/22 History aspirin 81 mg tablet,delayed 81 mg PO DAILY HEALTH MAINTENANCE 09/02/22 09/02/22 History release ezetimibe 10 mg tablet 10 mg PO DAILY CHOLESTEROL 09/02/22 09/01/22 History nitroglycerin 0.4 mg sublingual 0.4 mg sublingual UD PRN Chest Pain 09/02/22 Unknown History tablet ascorbic acid (vitamin C) 500 mg 1,000 mg (2 x 500 mg) PO BIDCM 30 09/09/22 Unknown Rx tablet days #120 tabs cholecalciferol (vitamin D3) 125 125 mcg PO DAILY 09/01/23 Unknown History mcg (5,000 unit) capsule diphenhydramine HCl 25 mg tablet 25 mg PO QHS PRN 09/01/23 Unknown History (Allergy (diphenhydramine)) omega 3-dha 100 mg-epa 400 mg-fish cap PO 09/01/23 Unknown History oil 1,000 mg capsule vitamin B complex (B 1 tab PO DAILY 09/01/23 Unknown History Complex-Vitamin B12 tablet) amlodipine 10 mg tablet 10 mg PO QDAY 04/15/24 Unknown History isosorbide mononitrate 30 mg 30 mg PO QAM 04/15/24 Unknown History tablet,extended release 24 hr sertraline 100 mg tablet 100 mg PO QDAY 06/04/24 Unknown History famotidine 20 mg tablet (Pepcid) 20 mg PO BID #10 tabs 07/18/24 Unknown Rx prednisone 20 mg tablet 60 mg (3 x 20 mg) PO DAILY #15 07/18/24 Unknown Rx TABLETS Allergy/AdvReac Type Severity Reaction Status Date / Time losartan Allergy Severe Angioedema Verified 07/18/24 11:03 hydrochlorothiazide Allergy Hives Verified 07/18/24 10:16 Family History Mother COPD (chronic obstructive pulmonary disease) Lung cancer Father Heart disease Hypertension Myocardial infarction age 53 following SD. Surgical History H/O colonoscopy S/P cataract extraction Presence of coronary angioplasty implant and graft ( 11/29/21) Social History household members: none Smoking Status: Former smoker how long ago did patient quit smoking: Smoked from age 18, 1 ppd x 4 years and then quit. alcohol intake: current alcohol intake frequency: a few times a week Alcohol type: beer substance use type: does not use ROS ROS ED Constitutional Constitutional ED: Denies chills or weight loss Eyes Eyes: Denies change in vision or diplopia ENT ENT ED: Reports other Details: See history of present illness ; Denies ear pain, rhinorrhea or sore throat Cardiovascular Cardiovascular: Denies chest pain, orthopnea, palpitations or racing heartbeat Respiratory/Chest Respiratory/Chest: Denies cough, dyspnea or orthopnea Gastrointestinal Gastrointestinal: Denies abdominal pain, diarrhea, nausea or vomiting Genitourinary Genitourinary ED: Denies dysuria, hematuria or urinary frequency Musculoskeletal Musculoskeletal: Denies arthralgias or myalgias Integumentary Denies abscess or rash Neurologic Neurologic: Denies headache(s) or weakness Psychiatric Psychiatric: Denies anxiety, depression, suicidal ideation or suicidal thoughts Endocrine Endocrinology: Denies polydipsia, polyphagia or polyur (more content not included)... Normal [facility] Gastroenterology Visit Repor ton 06-04-2024 Gastroenterology Visit Report [facility] Gastroenterology [address] [place] [address] OFFICE VISIT Date of Service: 06/04/24 MR#: [id number] Acct: [id number] Name: NAZARIO HUTTON Rep #: [id number] : 1950 Provider: Dr. Shubham granados MD Age/Sex: 73/M [place] [facility] Signed Intake Vital Signs 04/15/24 11:06 06/04/24 13:31 Height 5 ft 10 in 5 ft 10 in Weight: 201 lb 206 lb BMI 28.8 29.5 BP 104/58 L 145/80 H Blood Pressure Location Lt brachial Rt brachial Position Sitting Sitting Respiration 18 Pulse 59 L 58 L Pulse Oximetry (%) 91 Oxygen Delivery Method room air Intake Visit Reasons: Fatty liver Chief Complaint: Fatty liver Allergies hydrochlorothiazide Allergy (Verified 06/04/24 07:10) Hives Medications ???Medication ???Instructions ???Recorded ???Confirmed ???Type allopurinol 100 mg tablet 100 mg PO DAILY GOUT 03/25/22 06/04/24 History atenolol 50 mg tablet 50 mg PO DAILY HEART 03/25/22 06/04/24 History atorvastatin 80 mg tablet 80 mg PO DAILY CHOLESTEOL 03/25/22 06/04/24 History aspirin 81 mg tablet,delayed 81 mg PO DAILY HEALTH MAINTENANCE 09/02/22 06/04/24 History release ezetimibe 10 mg tablet 10 mg PO DAILY CHOLESTEROL 09/02/22 06/04/24 History nitroglycerin 0.4 mg sublingual 0.4 mg sublingual UD PRN Chest Pain 09/02/22 06/04/24 History tablet ascorbic acid (vitamin C) 500 mg 1,000 mg (2 x 500 mg) PO BIDCM 30 09/09/22 06/04/24 Rx tablet days #120 tabs cholecalciferol (vitamin D3) 125 125 mcg PO DAILY 09/01/23 06/04/24 History mcg (5,000 unit) capsule diphenhydramine HCl 25 mg tablet 25 mg PO QHS PRN 09/01/23 06/04/24 History (Allergy (diphenhydramine)) omega 3-dha 100 mg-epa 400 mg-fish cap PO 09/01/23 06/04/24 History oil 1,000 mg capsule vitamin B complex (B 1 tab PO DAILY 09/01/23 04/15/24 History Complex-Vitamin B12 tablet) amlodipine 10 mg tablet 10 mg PO QDAY 04/15/24 06/04/24 History isosorbide mononitrate 30 mg 30 mg PO QAM 04/15/24 06/04/24 History tablet,extended release 24 hr sertraline 100 mg tablet 100 mg PO QDAY 06/04/24 06/04/24 History Have you fallen in the past year?: No PFSH Medical History High serum parathyroid hormone (PTH) Heart murmur Elevated alkaline phosphatase level Elevated PSA Diverticulosis AVM (arteriovenous malformation) of colon Vitamin D deficiency Gout Alcohol abuse Essential hypertension Chest pain Anxiety Depression Myocardial infarct Chest pain Acute blood loss anemia Bloody diarrhea Coronary artery disease Atherosclerotic heart disease of [place] coronary artery without angina pectoris ST elevation SD (STEMI) ( 11/29/21) Hyperlipidemia Hypertension Surgical History H/O colonoscopy S/P cataract extraction Presence of coronary angioplasty implant and graft ( 11/29/21) Family History Mother COPD (chronic obstructive pulmonary disease) Lung cancer Father Heart disease Hypertension Myocardial infarction age 53 following SD. Social History household members: none Smoking Status: Former smoker how long ago did patient quit smoking: Smoked from age 18, 1 ppd x 4 years and then quit. alcohol intake: current alcohol intake frequency: a few times a week Alcohol type: beer substance use type: does not use HPI HPI Chief Complaint: Fatty liver Details: NAZARIO HUTTON, is a 73 M who presents to the office today for follow up. Previously established with GI for lower GI bleeds. Pt referred by PCP for elevated LFTs and fatty liver. Pt has hx of alcohol abuse following the of his a coulple years ago. States he currently drinks a few beers a day now. Pt denies any abdominal pain, heartburn or swelling. BM are normal once a day. Patient was drinking more after the of his about 6 packs/day in early 2021 but had cut down to few beers per day. Denies leg swelling, abdominal swelling, confusion or fall. ROS Const Constitutional: No fever(s), decreased energy, weakness or weight change Eyes Eyes: No blurry vision, change in vision or double vision ENT ENT: No dizziness/vertigo, nosebleed/epistaxis or tongue swelling Resp Respiratory: No shortness of breath or wheezing Cardio Cardiology: No chest pain at rest or dyspnea on exertion Gastro GI: No coffee ground emesis, Blood in stool or Black,tarry stools Genitourinary Male: No difficulty urinating or burning urination Musc Musculoskeletal: No limited range of motion or muscle weakness Skin Skin: Positive for dry skin; No rash Neuro Neurology: No abnormal movements, behavi (more content not included)... Normal [facility] CNOVon 05-29-2024 CNOV Office Visit ([facility] ) -- KWESINAZARIO SHEPPARD ([id number]) 1950 M Date Time Provider Department 05/29/24 1:00 PM [facility] During your visit today, we recorded the following information about you: Temperature Pulse Respiration Blood pressure 97.2 degrees 66/minute 18/minute 120/56 Weight 93 kg Suzanna Dawson PA-C 05/29/2024 1:33 PM Signed Chief Complaint Patient presents with: Recheck: Blood pressure HPI Nazario Diazbob is a 73 year old male who presents here today for recheck BP. Patient had low bp at last visit and had reports intermittent episodes of lightheadedness. We decreased amlodipine to just 5mg. Patient does feel slightly better. Not checking BP at home yet. Past medical history, appointments, medications, allergies reviewed. Previous Medical History PAST MEDICAL HISTORY Diagnosis Date Advance directive discussed with patient 04/18/2022 Discussed 03/2022 Alcohol abuse 09/14/2022 6 beers a day since passed in early 2021 Anxiety 12/08/2014 AVM (arteriovenous malformation) of colon 09/14/[address] Chacon BENIGN HYPERTENSION 03/04/2008 Coronary artery disease due to lipid rich plaque 12/06/[address] Edwards , cardio [facility] Diverticulosis 09/05/2022 Elevated alkaline phosphatase level 09/03/2017 Elevated PSA 03/17/2021 Heart murmur, systolic 08/01/2018 High serum parathyroid hormone (PTH) 08/01/[address] elevation myocardial infarction (STEMI) 12/06/2021 Hyperuricemia 10/30/[address] 04/18/2022 DPA: Jae (son) Low serum vitamin B12 05/18/2023 Low vitamin D level 03/15/2021 Lumbosacral radiculopathy at L5 07/10/2023 Medicare annual wellness visit, subsequent 03/15/2021 Medicare Part B: Not able to find. 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 ezetimibe (ZETIA) 10 mg tablet Take 1 tablet by mouth once daily. isosorbide mononitrate ER (IMDUR) 30 mg 24 hr tablet Take 1 tablet by mouth once daily. Per [facility] allopurinol (ZYLOPRIM) 100 mg tablet TAKE 1 TABLET BY MOUTH ONCE DAILY. FOR GOUT. sertraline (ZOLOFT) 100 mg tablet Take one tablet by mouth daily atorvastatin (LIPITOR) 80 mg tablet TAKE 1 [...] 1 capsule by mouth daily at bedtime. VITAMIN B COMPLEX (B COMPLEX 1 ORAL) Take by mouth. diphenhydrAMINE (BENADRYL) 25 mg capsule Take 25 mg by mouth every 6 hours as needed. Blood Pressure Monitor 1 Each once daily. No current facility-administered medications on file prior to visit. Social History Social History Tobacco Use Smoking status: Never Smokeless tobacco: Never Substance Use Topics Alcohol use: Yes Drug use: No Review of Symptoms REVIEW OF SYSTEMS See hpi EXAM: BP 120/56 (BP Site: Left Arm, BP Position: Sitting, BP Cuff Size: Regular Adult) Pulse 66 Temp 36.2 ?C (97.2 ?F) Resp 18 Wt 93 kg (205 lb) SpO2 95% BMI 3 (more content not included)... Normal [facility] 05-20-2024 [facility] Telephone ([facility]) -- NAZARIO HUTTON ([id number]) 1950 M Date Time Provider Department 05/20/24 [facility] During your visit today, we recorded the following information about you: Szuanna Dawson PA-C 05/20/2024 7:54 AM Signed Negative for hepatitis. Lupillo Moura LPN 05/20/2024 9:11 AM Signed Left message for pt to contact office. SUSHIL Crawley Kathryn, MA 05/21/2024 9:21 AM Signed Additional message left for pt to call back. LINA Vela Jamie, LPN 05/21/2024 2:41 PM Signed Pt returned call to office. Notified of results. He verbalized understanding. Pt also mentions he has an appt on May [address] Barron and Jun [address] Blanco. Heron Enriquez LPN Allergies As of Date: 05/20/2024 Noted Allergy Reaction HCTZ (HYDROCHLOROTHIAZIDE) 03/04/2008 16 - Unknown Comments: rash Date Reviewed: 05/01/2024 Reviewed by: Lupillo Moura LPN - Fully Assessed Reason for Visit: Results [95] Prescriptions as of 05/21/2024 - amLODIPine (NORVASC) 5 mg tablet Take 1 tablet by mouth once daily. - ezetimibe (ZETIA) 10 mg tablet Take 1 tablet by mouth once daily. - Blood Pressure Monitor 1 Each once daily. - amLODIPine (NORVASC) 5 mg tablet Take 1 tablet by mouth once daily for 14 days. - isosorbide mononitrate ER (IMDUR) 30 mg 24 hr tablet Take 1 tablet by mouth once daily. Per [facility] - allopurinol (ZYLOPRIM) 100 mg tablet TAKE 1 TABLET BY MOUTH ONCE DAILY. FOR GOUT. - sertraline (ZOLOFT) 100 mg tablet Take one tablet by mouth daily - atorvastatin (LIPITOR) 80 mg tablet TAKE [...] capsule by mouth daily at bedtime. - VITAMIN B COMPLEX (B COMPLEX 1 ORAL) Take by mouth. - diphenhydrAMINE (BENADRYL) 25 mg capsule Take 25 mg by mouth every 6 hours as needed. 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 Performed By: #### 2 2314-9, 5195-3, 29977-2 ####[facility] LABCLIA [id number] [place] [address] [place] HBV core IgM Ser Qlon 2023 HBV core IgM Ql (S) Negative Normal Negative [facility] Comment on above: Order Comment: Speci men Type: BLOOD SPECIMEN Ordering Facility: [facility] Address: [address] [place] [address] Result Comment: No e vidence of recent infection with Hepatitis B virus. Should recent infection be suspected, repeat testing may be considered 3-4 weeks after this draw. Performed By: #### 2 2314-9, 5195-3, 79424-9 #### [facility] CLIA [id number] [address] [place] [address] [place] HBV surface Ag Ser Qlon 10-2 4-2024 HBV surface Ag Ql (S) Negative Normal Negative [facility] Comment on above: Order Comment: Speci men Type: BLOOD SPECIMEN Ordering Facility: [facility] Address: [address] [place] [address] Performed By: #### 2 2314-9, 5195-3, 96984-4 #### [facility] CLIA [id number] [address] [place] [address] [place] HCV RNA DEMARIO+probe Qnon 05-16 HCV RNA DEMARIO+probe Ql Not detected Normal Not detected [facility] Comment on above: Order Comment: Speci men Type: BLOOD SPECIMENOrdering Facility: [facility] Address: [address] [place] [address] Performed By: #### 1 1011-4 ####[facility] LABCLIA [id number] [address] [place] ABD Limited w/ Elastographyo n 05-14-2024 ABD Limited w/ Elastography [facility] [address] [place] [address] ABD Limited w/ Elastography MR#: [id number] Acct: [id number] Name: NAZARIO HUTTON Rep #: [id number] : 1950 M 73 From: Raymundo madison MD PCP: Dr. Valeriano Beasley MD Status: [facility] Study: ABD Limited w/ Elastography Date of Exam: 04/24 09/16 Exam# [id number] Ordering Dr: Suzanna Dawson [id number] STUDY: ABDOMINAL ULTRASOUND - RIGHT UPPER QUADRANT; ELASTOGRAPHY REASON FOR VISIT: Male, 73 years old. Elevated liver enzymes. TECHNIQUE: Ultrasound evaluation of the right upper quadrant was performed with real-time and static alvardao-scale imaging. Point quantification shear wave elastography was performed (Cloudmeter). TECHNICAL QUALITY: Limited. Examination limited due to a combination of factors including obesity and bowel gas. COMPARISON: None. FINDINGS: Liver: The liver is enlarged and measures 18.7 cm. There is increased echogenicity consistent with fatty infiltration. The bile ducts are within normal limits. There is hepatic color flow. The direction of portal flow is hepatopetal. There is no demonstrated mass lesion. Median liver stiffness measured 18.5 kPa. Gallbladder: Normal distended gallbladder. The gallbladder wall measures 2.0 mm. There is a negative sonographic Brizuela''s sign. There is no pericholecystic fluid. There are no gallstones. Common Bile Duct (C.B.D.): The common bile duct measures 5 mm. Pancreas: There is normal echogenicity of the visualized pancreas. There is no demonstrated pancreatic mass or cyst. Right Kidney: Normal size of the right kidney. The right kidney measures 12.6 x 5.2 cm x 6.5 cm. Normal renal cortex. The right cortex measures 1.9 cm. There is a 1.6 cm x 1.6 x 1.2 cm renal cyst. Nonobstructive intrarenal calculi seen in the lower pole. The larger measures 1.6 times by 1.7 cm x 0.8. There is no right hydronephrosis. US/ABD Limited w/ Elastography IMPRESSION: 1. Liver stiffness measures 18.5 kPa compatible with F3-F4 (Moderate to severe liver fibrosis) Metavir score. 2. Right renal cysts. 3. Nonobstructive right intrarenal calculi. 4. Indication liver and hepatomegaly. Electronically Signed: Raymundo Pretty MD at 14:21 EDT , CC: Dr. Valeriano Beasley MD; DAVID Martin Industrial Editor: Signed [facility] 05-14-2024 [facility] Telephone ([facility]) -- NAZARIO HUTTON ([id number]) 1950 M Date Time Provider Department 05/14/24 SUZANNA DAWSON During your visit today, we recorded the following information about you: Lupillo Moura LPN 05/14/2024 2:50 PM Signed Received results of pt's US ordered by Suzanna mosher at [facility]. 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 We need to get him in with a liver specialist. Does he wish to stay in [place] with g[place]am at [facility]. Or does he prefer to stay with [facility]? I also need to do a hepatitis panel on him. He had declined hep C screening in past but given this finding, I think we need to check this. Also did he ever see dr. Barron (urology) for his kidney cysts/lesion?? ELIZABETH Martin Sherill A, LPN 05/15/2024 9:18 AM Signed Left message for pt to contact office. SUSHIL Crawley Krystle, RN 05/15/2024 12:23 PM Signed Patient returns call and results and provider message reviewed. Patient would like to stay local with Dr. Chacon as he has seen him in the past for other issues. Also, reports that he has not seen Dr. Barron. Will refax referral from September per patient request. OLYA Joya Rayanne, PA-C 05/15/2024 12:48 PM Signed Consult placed. Please give patient phone numbers to schedule. Lupillo Moura LPN 05/15/2024 1:52 PM Addendum Left message for pt to contact office for phone numbers. Dr Ines Galeano-[phone] Dr Barron [phone]. Please have pt contact them to schedule if he does not hear from their offices. All info has been faxed to Dr Chacon and Dr Barron as per below. SUSHIL Crawley Sherill A, LPN 05/16/2024 11:25 AM Signed Also sent pt a msg with phone numbers. SUSHIL Crawley Sherill A, LPN 05/17/2024 8:53 AM Signed Left additional message for pt to contact office. SUSHIL Crawley Roxanne, MA 05/20/2024 9:42 AM Signed Left additional message for patient to contact office. LINA Gandara Sherill A, LPN 05/20/2024 9:51 AM Signed Pt did read My Chart Message. Will close this encounter. Lupillo Moura LPN Allergies As of Date: 05/14/2024 Noted Allergy Reaction HCTZ (HYDROCHLOROTHIAZIDE) 03/04/2008 16 - Unknown Comments: rash Date Reviewed: 05/01/2024 Reviewed by: Lupillo Moura LPN - Fully Assessed Reason for Visit: Results [95] Primary Visit Diagnosis:Liver fibrosis [K74.00] Order(s):HEP ACUTE PANEL/RNA [SQHACRNA] Order #: [id number] FUTURE CONSULT TO GASTROENTEROLOGY [9010] Order #: [id number]: 1 FUTURE Prescriptions as of 05/20/2024 - amLODIPine (NORVASC) 5 mg tablet Take 1 tablet by mouth once daily. - ezetimibe (ZETIA) 10 mg tablet Take 1 tablet by mouth once daily. - Blood Pressure Monitor 1 Each once daily. - amLODIPine (NORVASC) 5 mg tablet Take 1 tablet by mouth once daily for 14 days. - isosorbide mononitrate ER (IMDUR) 30 mg 24 hr tablet Take 1 tablet by mouth once daily. Per [facility] - allopurinol (ZYLOPRIM) 100 mg tablet TAKE 1 TABLET BY MOUTH ONCE DAILY. FOR GOUT. - sertraline (ZOLOFT) 100 mg tablet Take one tablet by mouth daily - atorvastatin (LIPITOR) 80 mg tablet TAKE [...] capsule by mouth daily at bedtime. - VITAMIN B COMPLEX (B COMPLEX 1 ORAL) Take by mouth. - diphenhydrAMINE (BENADRYL) 25 mg capsule Take 25 mg by mouth every 6 hours as needed. Problem List As Of Date 05/14/2024 Noted Resolved Essential hypertension, benign [I10] 03/04/2008 Mixed hyperlipidemia [E78.2] 01/13/2011 Neurodermatitis [L28.0] 07/12/2011 08/01/2018 Hyperuricemia [E79.0] 10/30/2014 08/12/2019 Anxiety [F41.9] 12/08/2014 Stool guaiac positive [R19.5] 01/19/2016 08/01/2018 Abrasion of left ear canal [S00.412A] 08/28/2017 08/12/2019 Impaired fasting glucose [R73.01] 09/03/2017 08/01/2018 Elevated alkaline phosphatase level [R74.8] 09/03/2017 Elevated PTHrP level [R79.89] 07/21/2018 08/12/2019 High serum parathyroid hormone (PTH) [R79.89] 08/01/2018more content not included)... Normal [facility] 05-13-2024 [facility] Telephone ([facility]) -- NAZARIO HUTTON ([id number]) 1950 M Date Time Provider Department 05/13/24 VALERIANO BEASLEY During your visit today, we recorded the following information about you: Kirsten Marc RN 05/13/2024 3:17 PM Signed Patient calling with an order related question. Information provided. Kirsten Marc RN Allergies As of Date: 05/13/2024 Noted Allergy Reaction HCTZ (HYDROCHLOROTHIAZIDE) 03/04/2008 16 - Unknown Comments: rash Date Reviewed: 05/01/2024 Reviewed by: Lupillo Moura LPN - Fully Assessed Reason for Visit: Patient Question [1837] Prescriptions as of 05/13/2024 - amLODIPine (NORVASC) 5 mg tablet Take 1 tablet by mouth once daily. - ezetimibe (ZETIA) 10 mg tablet Take 1 tablet by mouth once daily. - Blood Pressure Monitor 1 Each once daily. - amLODIPine (NORVASC) 5 mg tablet Take 1 tablet by mouth once daily for 14 days. - isosorbide mononitrate ER (IMDUR) 30 mg 24 hr tablet Take 1 tablet by mouth once daily. Per [facility] - allopurinol (ZYLOPRIM) 100 mg tablet TAKE 1 TABLET BY MOUTH ONCE DAILY. FOR GOUT. - sertraline (ZOLOFT) 100 mg tablet Take one tablet by mouth daily - atorvastatin (LIPITOR) 80 mg tablet TAKE [...] capsule by mouth daily at bedtime. - VITAMIN B COMPLEX (B COMPLEX 1 ORAL) Take by mouth. - diphenhydrAMINE (BENADRYL) 25 mg capsule Take 25 mg by mouth every 6 hours as needed. 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 [L28.1] 03/15/2021 Elevated PSA [...] Kidney lesion [N28.9] 08/21/2023 Encounter Status:Closed by KIRSTEN MARC on 05/13/24 [facility] CNOVon 05-01-2024 CNOV Office Visit (FAMPWS ) -- NAZARIO HUTTON ([id number]) 1950 M Date Time Provider Department 05/01/24 1:00 PM [facility] During your visit today, we recorded the following information about you: Temperature Pulse Respiration Blood pressure 97.5 degrees 77/minute 18/minute 100/62 Weight Height 89.4 kg 1.745 m Suzanna Dawson PA-C 05/01/2024 2:25 PM Signed Nazario Hutton is a 73 year old male here for a Medicare wellness visit. 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 Medical/Family history review Reviewed and updated problem list, medical/surgical/family/so cial history, medications, and allergies. Opioid use review Opioid Medications (last 90 days) No data to display Anxiety/Depression screening PHQ-2 Score: 1 (Lower risk for depression) Recommendation: no further intervention at this time Cognitive screening Mini Cog Score: 5 Cognitive screening reviewed and No further action needed (score 3-5). Functional Observation Was the patient's Timed Up AND Go test unsteady or >= 12 seconds? No Advance Care Planning Surrogate decision maker and/or advance care plan documented Measurements BP 100/62 (BP Site: Left Arm, BP Position: Sitting, BP Cuff Size: Large Adult) Pulse 77 Temp 36.4 ?C (97.5 ?F) Resp 18 Ht 174.5 cm (5' 8.7) Wt 89.4 kg (197 lb) SpO2 96% BMI 29.35 kg/m? Vision Screening: Follows with optometry/ophthalmology Assessment/Plan Medicare annual wellness visit, subsequent (Z00.00) - Counseled on healthy diet and regular exercise - Fall avoidance information provided - Personalized prevention plan provided - See below Chief Complaint Patient presents with: Medicare Wellness Exam HPI Nazario Hutton is a 73 year old male who presents here today for extensive exam. Patient with hx of CAD, HTN, hx of STEMI, hlp, b12 def, vit d def, depression/anxiety, gout, alcohol abuse, and those as below. Patient doesn't have concerns today. Past medical history, appointments, medications, allergies reviewed. Previous Medical History PAST MEDICAL HISTORY Diagnosis Date Advance directive discussed with patient 04/18/2022 Discussed 03/2022 Alcohol abuse 09/14/2022 6 beers a day since passed in early 2021 Anxiety 12/08/2014 AVM (arteriovenous malformation) of colon 09/14/[address] Chacon BENIGN HYPERTENSION 03/04/2008 Coronary artery disease due to lipid rich plaque 12/06/[address] Edwards , cardio [place] Diverticulosis 09/05/2022 Elevated alkaline phosphatase level 09/03/2017 Elevated PSA 03/17/2021 Heart murmur, systolic 08/01/2018 High serum parathyroid hormone (PTH) 08/01/[address] elevation myocardial infarction (STEMI) 12/06/2021 Hyperuricemia 10/30/[address] 04/18/2022 DPA: Jae (son) Low serum vitamin B12 05/18/2023 Low vitamin D level 03/15/2021 Lumbosacral radiculopathy at L5 07/10/2023 Medicare annual wellness visit, subsequent 03/15/2021 Medicare Part B: Not able to find. 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 Normal [facility] Baljit 05-01-2024 PONCHON Telephone (FAMPWS) -- NAZARIO HUTTON ([id number]) 1950 M Date Time Provider Department 05/01/24 VALERIANO BEASLEY During your visit today, we recorded the following information about you: Alexia Waggoner LPN 05/01/2024 8:34 AM Signed Lisa with Dr. Vargas's office (cardiology) called for recent lipid lab work. Pt has an apt. Pt was identified with name and date of . FAX: [phone]. Done. Alexia Waggoner LPN Allergies As of Date: 05/01/2024 Noted Allergy Reaction HCTZ (HYDROCHLOROTHIAZIDE) 03/04/2008 16 - Unknown Comments: rash Date Reviewed: 04/04/2024 Reviewed by: Rupal Coe MA - Fully Assessed Reason for Visit: Release Of Medical Records [2017] Prescriptions as of 05/01/2024 - amLODIPine (NORVASC) 10 mg tablet Take 1 tablet by mouth once daily. - isosorbide mononitrate ER (IMDUR) 30 mg 24 hr tablet Take 1 tablet by mouth once daily. Per [facility] - allopurinol (ZYLOPRIM) 100 mg tablet TAKE 1 TABLET BY MOUTH ONCE DAILY. FOR GOUT. - sertraline (ZOLOFT) 100 mg tablet Take one tablet by mouth daily - ezetimibe (ZETIA) 10 mg tablet Take [...] capsule by mouth daily at bedtime. - VITAMIN B COMPLEX (B COMPLEX 1 ORAL) Take by mouth. - diphenhydrAMINE (BENADRYL) 25 mg capsule Take 25 mg by mouth every 6 hours as needed. 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 [place] [address] OFFICE VISIT Date of Service: 04/15/24 MR#: [id number] Acct: [id number] Name: NAZARIO HUTTON Rep #: [id number] : 1950 Provider: FAUSTO moore Age/Sex: 73/M Location: [facility] Status: Signed HPI HPI History of Present Illness Details: This is a 73-year-old man who presents to the office today for a cardiovascular follow-up visit. He has a history of coronary artery disease, who was admitted to the hospital with severe anemia chest pain and elevated cardiac enzymes. Cardiology was called to see him and he was evaluated and underwent a cardiac catheterization after being noted to have a non-ST elevation myocardial infarction and demonstrated left main coronary without significant disease, left anterior descending artery previously stented with mild in-stent stenosis and diffuse distal disease of approximately 80%, left circumflex artery which is totally occluded in the proximal segment and filling via left to left and right to left collaterals, the right coronary artery which was previously stented with diffuse disease moderate in-stent stenosis and right to left collaterals filling the distal LAD and circumflex artery. There was mild left ventricular dysfunction and hypokinesis of the anteroapical wall. Medical therapy was recommended and he appears to have done well he is taking iron pills as well as vitamin C for improvement in his iron absorption his hemoglobin has improved significantly. From a cardiac standpoint, the patient is doing well. He denies any palpitations, chest pain, pressure or heaviness. He does have occasional SOB with exertion-this is nothing new or worsening He denies Orthopnea, and PND. He does not have bleeding issues; no blood in urine, stool or nosebleeds. He does acknowledge intermittent fatigue. He denies myalgias, or claudication. He denies edema, or sudden weight gain. He does have occasional lightheadedness with quick positional changes. He denies dizziness, syncopal or near syncopal episodes, and headaches. 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: No Is patient in pain?: No Allergies hydrochlorothiazide Allergy (Verified 04/15/24 11:25) Hives Medications ???Medication ???Instructions ???Recorded ???Confirmed ???Type allopurinol 100 mg tablet 100 mg PO DAILY GOUT 03/25/22 04/15/24 History atenolol 50 mg tablet 50 mg PO DAILY HEART 03/25/22 04/15/24 History atorvastatin 80 mg tablet 80 mg PO DAILY CHOLESTEOL 03/25/22 04/15/24 History aspirin 81 mg tablet,delayed 81 mg PO DAILY HEALTH MAINTENANCE 09/02/22 04/15/24 History release ezetimibe 10 mg tablet 10 mg PO DAILY CHOLESTEROL 09/02/22 04/15/24 History nitroglycerin 0.4 mg sublingual 0.4 mg sublingual UD PRN Chest Pain 09/02/22 04/15/24 History tablet ascorbic acid (vitamin C) 500 mg 1,000 mg (2 x 500 mg) PO BIDCM 30 09/09/22 04/15/24 Rx tablet days #120 tabs sertraline 50 mg tablet 50 mg PO DAILY 10/19/22 04/15/24 History doxepin 25 mg capsule 25 mg PO QHS PRN 12/09/22 04/15/24 History cholecalciferol (vitamin D3) 125 125 mcg PO DAILY 09/01/23 04/15/24 History mcg (5,000 unit) capsule diphenhydramine HCl 25 mg tablet 25 mg PO QHS PRN 09/01/23 04/15/24 History (Allergy (diphenhydramine)) omega 3-dha 100 mg-epa 400 mg-fish cap PO 09/01/23 04/15/24 History oil 1,000 mg capsule vitamin B complex (B 1 tab PO DAILY 09/01/23 04/15/24 History Complex-Vitamin B12 tablet) amlodipine 10 mg tablet 10 mg PO QDAY 04/15/24 04/15/24 History isosorbide mononitrate 30 mg 30 mg PO QAM 04/15/24 04/15/24 History tablet,extended release 24 hr Have you fallen in the past year?: No PFSH Medical History (Reviewed 04/15/24 @ 12:39 by Estefany Thrasher SILVER SERVICE WAITER, SILVER SERVICE WAITER-C) Essential hypertension Chest pain Anxiety Depression Myocardial infarct Chest pain Acute blood loss anemia Bloody diarrhea Coronary artery disease Atherosclerotic heart disease of [place] coronary artery without angina pectoris ST elevation [place] (STEMI) ( 11/29/21) Hyperlipidemia Hypertension Surgical History (Reviewed 04/15/24 @ 12:39 by Estefany Thrasher SILVER SERVICE WAITER, SILVER SERVICE WAITER-C) S/P cataract extraction Presence of coronary angioplasty implant and graft ( 11/29/21) Family History (Reviewed 04/15/24 @ 12:39 by Estefany Thrasher SILVER SERVICE WAITER, SILVER SERVICE WAITER-C) Mother COPD (chronic obstructive pulmonary disease) Lung cancer Father Heart disease Hypertension Myocardial infarction age 53 following SD. Social Hi (more content not included)... Normal [facility] 25(OH)D3 [facility] 2023 25-hydroxyvitamin D3 [Mass/Vol] 27.1 ng/mL Low 31.0-80.0 [facility] Comment on above: Order Comment: Speci men Type: BLOOD SPECIMEN Ordering Facility: [facility] Address: [address] [place] [address] Result Comment: Clas sification of 25 [place] Vitamin D status: Deficiency/Insufficiency: < or = 30 ng/ml. Sufficiency/Optimal Levels: 31-80 ng/mL Toxicity: > 100 ng/mL. Test performed by chemiluminescent immunoassay. Performed By: #### 1 989-3 #### [facility] CLIA [id number] [address] [place] [address] [place] CBC W Auto Differential pane l (Bld)on 04-04-2024 Basophils (Bld) [#/Vol] 0.06 10*3/uL Normal <0.11 [facility] Comment on above: Order Comment: Speci men Type: BLOOD SPECIMEN Ordering Facility: [facility] Address: [address] [place] [address] Performed By: #### 2 2314-9, 5194-3, 47705-9 #### [facility] CLIA [id number] [address] [place] [address] [place] Basophils/100 WBC (Bld) 0.7 % Normal [facility] Comment on above: Order Comment: Speci men Type: BLOOD SPECIMEN Ordering Facility: [facility] Address: [address] [place] [address] Performed By: #### 2 2314-9, 3, 98005-2 #### [facility] CLIA [id number] [address] [place] [address] [place] Differential cell count method Nom (Bld) Auto Normal [facility] Comment on above: Order Comment: Speci men Type: BLOOD SPECIMEN Ordering Facility: [facility] Address: [address] [place] [address] Performed By: #### 2 2314-9, 3, 60943-6 #### [facility] CLIA [id number] [address] [place] [address] [place] Eosinophils (Bld) [#/Vol] 0.43 10*3/uL Normal <0.46 [facility] Comment on above: Order Comment: Speci men Type: BLOOD SPECIMEN Ordering Facility: [facility] Address: [address] [place] [address] Performed By: #### 2 2314-9, 5195-3, 96789-1 #### [facility] CLIA [id number] [address] [place], [place] [id number] [place] Eosinophils/100 WBC (Bld) 5.1 % Normal [facility] Comment on above: Order Comment: Speci men Type: BLOOD SPECIMEN Ordering Facility: [facility] Address: [address] [place] [address] Performed By: #### 2 2314-9, 5194-3, 29151-4 #### [facility] CLIA [id number] [address] [place] [address] [place] Erythrocyte distribution width (RBC) [Ratio] 13.1 % Normal 11.5-15.0 [facility] Comment on above: Order Comment: Speci men Type: BLOOD SPECIMEN Ordering Facility: [facility] Address: [address] [place] [address] Performed By: #### 2 2314-9, 5194-3, 33474-0 #### [facility] CLIA [id number] [address] [place] [address] [place] Hematocrit (Bld) [Volume fraction] 39.0 % Normal 39.0-51.0 [facility] Comment on above: Order Comment: Speci men Type: BLOOD SPECIMEN Ordering Facility: [facility] Address: [address] [place] [address] Performed By: #### 2 2314-9, 3, 13468-9 #### [facility] CLIA [id number] [address] [place], [place] [address] [place] Hemoglobin (Bld) [Mass/Vol] 12.8 g/dL Low 13.0-17.0 [facility] Comment on above: Order Comment: Speci men Type: BLOOD SPECIMEN Ordering Facility: [facility] Address: [address] [place] [address] Performed By: #### 2 2314-9, 5-3, 29255-6 #### [facility] CLIA [id number] [address] [place] [address] [place] Immature granulocytes (Bld) [#/Vol] 0.15 10*3/uL High <0.10 [facility] Comment on above: Order Comment: Speci men Type: BLOOD SPECIMEN Ordering Facility: [facility] Address: [address] [place] [address] Performed By: #### 2 2314-9, 5-3, 48943-8 #### [facility] CLIA [id number] [address] [place] [address] [place] Immature granulocytes/100 WBC (Bld) 1.8 % Normal [facility] Comment on above: Order Comment: Speci men Type: BLOOD SPECIMEN Ordering Facility: [facility] Address: [address] [place] [address] Performed By: #### 2 2314-9, 53, 56511-3 #### [facility] CLIA [id number] [address] [place] [address] [place] Lymphocytes (Bld) [#/Vol] 0.64 10*3/uL Low 1.00-4.00 [facility] Comment on above: Order Comment: Speci men Type: BLOOD SPECIMEN Ordering Facility: [facility] Address: [address] [place] [address] Performed By: #### 2 2314-9, 53, 68194-1 #### [facility] CLIA [id number] [address] [place] [address] [place] Lymphocytes/100 WBC (Bld) 7.6 % Normal [facility] Comment on above: Order Comment: Speci men Type: BLOOD SPECIMEN Ordering Facility: [facility] Address: [address] [place] [address] Performed By: #### 2 2314-9, 5-3, 82956-4 #### [facility] CLIA [id number] [address] [place] [address] [place] MCH (RBC) [Entitic mass] 34.9 pg High 26.0-34.0 [facility] Comment on above: Order Comment: Speci men Type: BLOOD SPECIMEN Ordering Facility: [facility] Address: [address] [place] [address] Performed By: #### 2 2314-9, 5195-3, 09070-7 #### [facility] CLIA [id number] [address] [place] [address] [place] MCHC (RBC) [Mass/Vol] 32.8 g/dL Normal 30.5-36.0 [facility] Comment on above: Order Comment: Speci men Type: BLOOD SPECIMEN Ordering Facility: [facility] Address: [address] [place] [address] Performed By: #### 2 2314-9, 5195-3, 65038-1 #### [facility] CLIA [id number] [address] [place] [address] [place] MCV (RBC) [Entitic vol] 106.3 fL High 80.0-100.0 [facility] Comment on above: Order Comment: Speci men Type: BLOOD SPECIMEN Ordering Facility: [facility] Address: [address] [place] [address] Performed By: #### 2 2314-9, 5195-3, 87872-8 #### [facility] CLIA [id number] [address] [place] [address] [place] Monocytes (Bld) [#/Vol] 0.96 10*3/uL High <0.87 [facility] Comment on above: Order Comment: Speci men Type: BLOOD SPECIMEN Ordering Facility: [facility] Address: [address] [place] [address] Performed By: #### 2 2314-9, 5195-3, 90445-5 #### [facility] CLIA [id number] [address] [place] [address] [place] Monocytes/100 WBC (Bld) 11.4 % Normal [facility] Comment on above: Order Comment: Speci men Type: BLOOD SPECIMEN Ordering Facility: [facility] Address: [address] [place] [address] Performed By: #### 2 2314-9, 5195-3, 58395-6 #### [facility] CLIA [id number] [address] [place] [address] [place] Neutrophils (Bld) [#/Vol] 6.17 10*3/uL Normal 1.45-7.50 [facility] Comment on above: Order Comment: Speci men Type: BLOOD SPECIMEN Ordering Facility: [facility] Address: [address] [place] [address] Performed By: #### 2 2314-9, 5195-3, 23112-2 #### [facility] CLIA [id number] [address] [place] [address] [place] Neutrophils/100 WBC (Bld) 73.4 % Normal [facility] Comment on above: Order Comment: Speci men Type: BLOOD SPECIMEN Ordering Facility: [facility] Address: [address] [place] [address] Performed By: #### 2 2314-9, 5195-3, 71538-0 #### [facility] CLIA [id number] [address] [place] [address] [place] Nucleated RBC (Bld) [#/Vol] 10*3/uL Normal <0.01 [facility] Comment on above: Order Comment: Speci men Type: BLOOD SPECIMEN Ordering Facility: [facility] Address: [address] [place] [address] Performed By: #### 2 2314-9, 5195-3, 45061-4 #### [facility] CLIA [id number] [address] [place] [address] [place] Nucleated RBC/100 WBC (Bld) [Ratio] 0.0 /100 WBC Normal [facility] Comment on above: Order Comment: Speci men Type: BLOOD SPECIMEN Ordering Facility: [facility] Address: [address] [place] [address] Performed By: #### 2 2314-9, 5195-3, 93939-8 #### [facility] CLIA [id number] [address] [place] [address] [place] Platelet mean volume (Bld) [Entitic vol] 10.5 fL Normal 9.0-12.7 [facility] Comment on above: Order Comment: Speci men Type: BLOOD SPECIMEN Ordering Facility: [facility] Address: [address] [place] [address] Performed By: #### 2 2314-9, 5195-3, 97901-8 #### [facility] CLIA [id number] [address] [place] [address] [place] Platelets (Bld) [#/Vol] 193 10*3/uL Normal 150-400 [facility] Comment on above: Order Comment: Speci men Type: BLOOD SPECIMEN Ordering Facility: [facility] Address: [address] [place] [address] Performed By: #### 2 2314-9, 5195-3, 22907-2 #### [facility] CLIA [id number] [address] [place] [address] [place] RBC (Bld) [#/Vol] 3.67 10*6/uL Low 4.20-6.00 [facility] Comment on above: Order Comment: Speci men Type: BLOOD SPECIMEN Ordering Facility: [facility] Address: [address] [place] [address] Performed By: #### 2 2314-9, 5195-3, 54952-6 #### [facility] CLIA [id number] [address] [place] [address] [place] WBC (Bld) [#/Vol] 8.41 10*3/uL Normal 3.70-11.00 [facility] Comment on above: Order Comment: Speci men Type: BLOOD SPECIMEN Ordering Facility: [facility] Address: [address] [place] [address] Performed By: #### 2 2314-9, 5195-3, 16770-4 #### [facility] CLIA [id number] [address] [place] [address] CNOVon 04-04-2024 CNOV Office Visit (FAMPWS ) -- NAZARIO HUTTON ([id number]) 1950 Date Time Provider Department 04/04/24 11:40 AM NI SAUCEDA During your visit today, we recorded the following information about you: Pulse Respiration Blood pressure Weight 58/minute 14/minute 155/84 92.5 kg Ni Sauceda APRN.[facility] 04/04/2024 11:56 AM Signed Chief Complaint Patient presents with: ER F/U HPI Nazariobrissa Hutton is a 73 year old male who presents here today for Above Complaints.. Patient presents for ER follow up. Patient seen in [facility] for angioedema. Losartan d/c'd by Dr. Beasley after notification of ER visit. Angioedema has resolved. Past medical history, appointments, medications, allergies reviewed. Previous Medical History PAST MEDICAL HISTORY 04/18/2022: Advance directive discussed with patient Comment: Discussed 03/202209/14/2022: Alcohol abuse Comment: 6 beers a day since passed in early 202112/08/2014: Anxiety 09/14/2022: AVM (arteriovenous malformation) of colon Comment: Seeing Dr. Chacon 03/04/2008: BENIGN HYPERTENSION 12/06/2021: Coronary artery disease due to lipid rich plaque Comment: seeing Dr. Edwards , cardio [place] 09/05/2022: Diverticulosis 09/03/2017: Elevated alkaline phosphatase level 03/17/2021: Elevated PSA 08/01/2018: Heart murmur, systolic 08/01/2018: High serum parathyroid hormone (PTH) 12/06/2021: History of ST elevation myocardial infarction (STEMI) 10/30/2014: Hyperuricemia 04/18/2022: Living will in place Comment: DPA: Jae (son) 05/18/2023: Low serum vitamin B12 03/15/2021: Low vitamin D level 07/10/2023: Lumbosacral radiculopathy at L5 03/15/2021: Medicare annual wellness visit, subsequent Comment: Medicare Part B: Not able to find. 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 Floyd, repeat 10 yrs No date: REMV CATARACT EXTRACAP,INSERT LENS; Bilateral Comment: 07/2022 Family History FAMILY HISTORY Problem Relation [...] Family History Patient Allergies ALLERGIES Allergen Reactions Hctz [Hydrochloroth* Unknown rash Current Medications Current Outpatient Medications on File Prior to Visit Medication Sig isosorbide mononitrate ER (IMDUR) 30 mg 24 hr tablet Take 1 tablet by mouth once daily. Per [facility] allopurinol (ZYLOPRIM) 100 mg tablet TAKE 1 [...] FOR HOME USE. DX: LABILE BLOOD PRESSURE (Patient not taking: Reported on 01/01/2024) VITAMIN B COMPLEX (B COMPLEX 1 ORAL) Take by mouth. diphenhydrAMINE (BENADRYL) 25 mg capsule Take 25 mg by mouth every 6 hours as needed. No current facility-administered medications on file prior to visit. Social History Social History Tobacco Use Smoking status: Never Smokeless tobacco: Never Substance Use Topics Alcohol use: Yes Drug use: No Review of Symptoms REVIEW OF SYS (more content not included)... Normal [facility] Comprehensive metabolic 2000 panelon 04-04-2024 Albumin [Mass/Vol] 3.8 g/dL Low 3.9-4.9 [facility] Comment on above: Order Comment: Speci men Type: BLOOD SPECIMEN Ordering Facility: [facility] Address: [address] [place] [address] Performed By: #### 1 989-3 #### [facility] CLIA [id number] [address] [place] [address] [place] [address] [place] ALP [Catalytic activity/Vol] 110 U/L Normal 38-113 [facility] Comment on above: Order Comment: Speci men Type: BLOOD SPECIMEN Ordering Facility: [facility] Address: [address] [place] [address] Performed By: #### 1 989-3 #### [facility] CLIA [id number] [address] [place] [address] [place] ALT [Catalytic activity/Vol] 38 U/L Normal 10-54 [facility] Comment on above: Order Comment: Speci men Type: BLOOD SPECIMEN Ordering Facility: [facility] Address: [address] [place] [address] Performed By: #### 1 989-3 #### [facility] CLIA [id number] [address] [place] [address] [place] Anion gap [Moles/Vol] 11 mmol/L Normal 8-15 [facility] Comment on above: Order Comment: Speci men Type: BLOOD SPECIMEN Ordering Facility: [facility] Address: [address] [place] [address] Performed By: #### 1 989-3 #### [facility] CLIA [id number] [address] [place] [address] [place] AST [Catalytic activity/Vol] 47 U/L High 14-40 [facility] Comment on above: Order Comment: Speci men Type: BLOOD SPECIMEN Ordering Facility: [facility] Address: [address] [place] [address] Performed By: #### 1 989-3 #### [facility] CLIA [id number] [address] [place] [address] [place] Bilirubin [Mass/Vol] 0.4 mg/dL Normal 0.2-1.3 [facility] Comment on above: Order Comment: Speci men Type: BLOOD SPECIMEN Ordering Facility: [facility] Address: [address] [place] [address] Performed By: #### 1 989-3 #### [facility] CLIA [id number] [facility] [place] [address] [place] Calcium [Mass/Vol] 9.7 mg/dL Normal 8.5-10.2 [facility] Comment on above: Order Comment: Speci men Type: BLOOD SPECIMEN Ordering Facility: [facility] Address: [address] [place] [address] Performed By: #### 1 989-3 #### [facility] CLIA [id number] [address] [place] [address] [place] Chloride [Moles/Vol] 109 mmol/L High 98-107 [facility] Comment on above: Order Comment: Speci men Type: BLOOD SPECIMEN Ordering Facility: [facility] Address: [address] [place] [address] Performed By: #### 1 989-3 #### [facility] CLIA [id number] [address] [place] [address] [place] CO2 [Moles/Vol] 22 mmol/L Normal 22-30 [facility] Comment on above: Order Comment: Speci men Type: BLOOD SPECIMEN Ordering Facility: [facility] Address: [address] [place] [address] Performed By: #### 1 989-3 #### [facility] CLIA [id number] [address] [place] [address] [place] Creatinine [Mass/Vol] 0.74 mg/dL Normal 0.73-1.22 [facility] Comment on above: Order Comment: Speci men Type: BLOOD SPECIMEN Ordering Facility: [facility] Address: [address] [place] [address] Performed By: #### 1 989-3 #### [facility] CLIA [id number] [address] [place] [address] [place] Creatinine and Glomerular filtration rate.predicted panel (S/P/Bld) 96 mL/min/1.73m??? Normal >=60 [facility] Comment on above: Order Comment: Medina peck Type: BLOOD SPECIMEN Ordering Facility: [facility] Address: [address] [place] [address] Result Comment: Micaela mated Glomerular Filtration Rate (eGFR) is calculated using the 2020 CKD-EPI creatinine equation. This equation utilizes serum creatinine, sex, and age as parameters. The creatinine assay has traceable calibration to isotope dilution-mass spectrometry. Refer to KDIGO guidelines for clinical interpretation. In patients with unstable renal function, e.g. those with acute kidney injury, the eGFR may not accurately reflect actual GFR. Performed By: #### 1 989-3 #### [facility] CLIA [id number] [address] [place] [address] [place] Glucose [Mass/Vol] 94 mg/dL Normal 74-99 [facility] Comment on above: Order Comment: Medina peck Type: BLOOD SPECIMEN Ordering Facility: [facility] Address: [address] [place] [address] Result Comment: The [place] Diabetes Association (ADA) provides guidance for cutoff values for fasting glucose and random glucose. The ADA defines fasting as no caloric intake for at least 8 hours. Fasting plasma glucose results between 100 to 125 mg/dL indicate increased risk for diabetes (prediabetes). Fasting plasma glucose results greater than or equal to 126 mg/dL meet the criteria for diagnosis of diabetes. In the absence of unequivocal hyperglycemia, results should be confirmed by repeat testing. In a patient with classic symptoms of hyperglycemia or hyperglycemic crisis, random plasma glucose results greater than or equal to 200 mg/dL meet the criteria for diagnosis of diabetes. Reference: Standards of Medical Care in Diabetes 2016, [place] Diabetes Association. Diabetes Care. 2016.39(Suppl 1). Performed By: #### 1 989-3 #### [facility] CLIA [id number] [address] [place] [address] [place] Potassium [Moles/Vol] 4.6 mmol/L Normal 3.7-5.1 [facility] Comment on above: Order Comment: Speci men Type: BLOOD SPECIMEN Ordering Facility: [facility] Address: [address] [place] [address] Performed By: #### 1 989-3 #### [facility] CLIA [id number] [address] [place] [address] [place] Protein [Mass/Vol] 7.1 g/dL Normal 6.3-8.0 [facility] Comment on above: Order Comment: Speci men Type: BLOOD SPECIMEN Ordering Facility: [facility] Address: [address] [place] [address] Performed By: #### 1 989-3 #### [facility] CLIA [id number] [address] [place] [address] [place] Sodium [Moles/Vol] 142 mmol/L Normal 136-144 [facility] Comment on above: Order Comment: Speci men Type: BLOOD SPECIMEN Ordering Facility: [facility] Address: [address] [place] [address] Performed By: #### 1 989-3 #### [facility] CLIA [id number] [address] [place] [address] [place] Urea nitrogen [Mass/Vol] 15 mg/dL Normal 9-24 [facility] Comment on above: Order Comment: Speci men Type: BLOOD SPECIMEN Ordering Facility: [facility] Address: [address] [place] [address] Performed By: #### 1 989-3 #### [facility] CLIA [id number] [address] [place] [address] [place] Free PSA [Mass/Vol]on 2023 Free PSA/Total PSA [Mass fraction] 24 % Normal [facility] Comment on above: Order Comment: Speci men Type: BLOOD SPECIMEN Ordering Facility: [facility] Address: [address] [place] [address] Result Comment: Tota l and free PSA test methodology used is the Electrochemiluminescence Immunoassay by [employer]. Total or free PSA values by differing methodologies cannot be interchanged. The below table lists the probability of finding prostate cancer upon needle biopsy, for men 50 years or older and total PSA concentrations from 4.0-10.0 ng/mL. Results should be interpreted within the broader clinical context. Free PSA(%) 50-59 years 60-69 years >69 years <11 49.2% 57.5% 64.5% 11-18 26.9% 33.9% 40.8% 19-25 18.3% 23.9% 29.7% >25 9.1% 12.2% 15.8% Performed By: #### 1 989-3 #### [facility] CLIA [id number] [address] [place] [address] [place] Prostate specific Ag [Mass/Vol] 5.42 ng/mL High <2.60 [facility] Comment on above: Order Comment: Speci men Type: BLOOD SPECIMEN Ordering Facility: [facility] Address: [address] [place] [address] Result Comment: Brynn lam PSA test methodology used is the Electrochemiluminescence Immunoassay by [employer]. Total PSA values by differing methodologies cannot be interchanged. For an individual patient, the significance of a PSA level should be interpreted in a broad clinical context, including age, race, family history, digital rectal exam, prostate size, results of prior testing (prostate biopsy, free PSA, PCA3), and use of 5-alpha reductase inhibitors. Considering the high incidence of asymptomatic cancer in the general population that may not pose an ultimate risk to a patient, the decision to recommend urological evaluation or prostate biopsy should be individualized after consideration of all these factors. REFERENCE: Nilson Mancuso M.D., M.P.H., Lance Garber M.D., Ph.D., Patria Hartley M.D., Raquel Ahmadi, M.P.H., Lisseth Rush, Sc.D. Effect of Verification Bias on Screening for Prostate Cancer by Measurement of Prostatic Specific Antigen. N Engl J Med 2003,349:335-42. Performed By: #### 1 989-3 #### [facility] CLIA [id number] [address] [place] [address] [facility] LIPID PANEL, NONFASTINGon Cholesterol [Mass/Vol] 146 mg/dL Normal <200 [facility] Comment on above: Order Comment: Speci men Type: BLOOD SPECIMEN Ordering Facility: [facility] Address: [address] [place] [address] Result Comment: <200 mg/dL, Desirable 200-239 mg/dL, Borderline high >239 mg/dL, High Performed By: #### 1 989-3 #### [facility] CLIA [id number] [address] [place] [address] [place] HDL CHOLESTEROL, NF 55 mg/dL Normal >39 [facility] Comment on above: Order Comment: Speci men Type: BLOOD SPECIMEN Ordering Facility: [facility] Address: [address] [place] [address] Result Comment: 40-5 9 mg/dL, Acceptable >59 mg/dL, High: Negative risk factor for coronary heart disease <40 mg/dL, Low: Positive risk factor for coronary heart disease Performed By: #### 1 989-3 #### [facility] CLIA [id number] [address] [place] [address] OF [facility] LDL CHOLESTEROL, NF 74 mg/dL Normal <100 [facility] Comment on above: Order Comment: Speci men Type: BLOOD SPECIMEN Ordering Facility: [facility] Address: [address] [place] [address] Result Comment: <100 mg/dL, Optimal 100-129 mg/dL, Near optimal/above optimal 130-159 mg/dL, Borderline high 160-189 mg/dL, High >189 mg/dL, Very high Secondary prevention optimal LDL Cholesterol levels are recommended to be < 70 mg/dL Performed By: #### 1 989-3 #### [facility] CLIA [id number] [address] [place] [address] [place] LDL/HDL RATIO, NF 1.35 mg/dL Normal <2.54 [facility] Comment on above: Order Comment: Kristii men Type: BLOOD SPECIMEN Ordering Facility: [facility] Address: [address] [place] [address] Result Comment: Rhonda barnes: 1. National Cholesterol Education Program ATP III Guideline At-A-Glance Quick Desk Reference: National Heart, Lung, and Blood [place]. National Institutes of Health. 2001: NIH Publication No. 01-3305. 2. An International Atherosclerosis Society position paper: global recommendations for the management of dyslipidemia: executive summary, Atherosclerosis. 2014: 232(2):410-413. Performed By: #### 1 989-3 #### [facility] CLIA [id number] [address] [place] [address] [place] NON HDL CHOL, NF 91 mg/dL Normal <130 [facility] Comment on above: Order Comment: Medina peck Type: BLOOD SPECIMEN Ordering Facility: [facility] Address: [address] [place] [address] Result Comment: <130 mg/dL, Optimal 130-159 mg/dL, Near optimal/above optimal 160-189 mg/dL, Borderline high 190-219 mg/dL, High >219 mg/dL, Very high Secondary prevention optimal non HDL Cholesterol levels are recommended to be <100 mg/dL Performed By: #### 1 989-3 #### [facility] CLIA [id number] [address] [place] [address] [place] T CHOL/HDL RATIO NF 2.65 mg/dL Normal <5.10 [facility] Comment on above: Order Comment: Kritsii men Type: BLOOD SPECIMEN Ordering Facility: [facility] Address: [address] [place] [address] Performed By: #### 1 989-3 #### [facility] CLIA [id number] [address] [place] [address] [place] TRIGLYCERIDES, NF 83 mg/dL Normal <150 [facility] Comment on above: Order Comment: Kristii men Type: BLOOD SPECIMEN Ordering Facility: [facility] Address: [address] [place] [address] Result Comment: <150 mg/dL, Normal 150-199 mg/dL, Borderline high 200-499 mg/dL, High >499 mg/dL, Very high Performed By: #### 1 989-3 #### [facility] CLIA [id number] [address] [place] [address] [place] VLDL CHOLESTEROL, NF 17 mg/dL Normal <30 [facility] Comment on above: Order Comment: Speci men Type: BLOOD SPECIMEN Ordering Facility: [facility] Address: [address] [place] [address] Performed By: #### 1 989-3 #### [facility] CLIA [id number] [address] [place] [address] [place] Urate SerPl-mCncon 4 Urate [Mass/Vol] 5.3 mg/dL Normal 4.0-8.1 [facility] Comment on above: Order Comment: Speci men Type: BLOOD SPECIMEN Ordering Facility: [facility] Address: [address] [place] [address] Performed By: #### 1 989-3 #### [facility] CLIA [id number] [address] [place] [address] [place] Urinalysis complete panel (U )on 04-04-2024 Bacteria LM.HPF (Urine sed) [#/Area] Negative Normal Negative [facility] Comment on above: Order Comment: Speci men Type: BLOOD SPECIMEN Ordering Facility: [facility] Address: [address] [place] [address] Performed By: #### C OPPER #### [facility] CLIA [id number] [address] [place] [address] [place] Bilirubin Ql (U) Negative Normal Negative [facility] Comment on above: Order Comment: Speci men Type: BLOOD SPECIMEN Ordering Facility: [facility] Address: [address] [place] [address] Performed By: #### C OPPER #### [facility] CLIA [id number] [address] [place] [address] [place] Clarity (Unsp spec) Clear Normal Clear [facility] Comment on above: Order Comment: Speci men Type: BLOOD SPECIMEN Ordering Facility: [facility] Address: [address] [place] [address] Performed By: #### C OPPER #### [facility] CLIA [id number] [address] [place] [address] [place] Color (U) Yellow Normal Yellow [facility] Comment on above: Order Comment: Speci men Type: BLOOD SPECIMEN Ordering Facility: [facility] Address: [address] [place] [address] Performed By: #### C OPPER #### [facility] CLIA [id number] [address] [place] [address] [place] Epithelial cells LM.HPF (Urine sed) [#/Area] None Seen Normal [facility] Comment on above: Order Comment: Speci men Type: BLOOD SPECIMEN Ordering Facility: [facility] Address: [address] [place] [address] Performed By: #### C OPPER #### [facility] CLIA [id number] [address] [place] [address] [place] Glucose Test strip (U) [Mass/Vol] Negative Normal Negative [facility] Comment on above: Order Comment: Speci men Type: BLOOD SPECIMEN Ordering Facility: [facility] Address: [address] [place] [address] Performed By: #### C OPPER #### [facility] CLIA [id number] [address] [place], [place] [address] [place] Hemoglobin Ql (U) Negative Normal Negative [facility] Comment on above: Order Comment: Speci men Type: BLOOD SPECIMEN Ordering Facility: [facility] Address: [address] [place] [address] Performed By: #### C OPPER #### [facility] CLIA [id number] [address] [place] [address] [place] Hyaline casts (Urine sed) [#/Area] 4-10 /LPF Abnormal 0 /LPF [facility] Comment on above: Order Comment: Speci men Type: BLOOD SPECIMEN Ordering Facility: [facility] Address: [address] [place] [address] Performed By: #### C OPPER #### [facility] CLIA [id number] [address] [place] [address] [place] Ketones Ql (U) Negative Normal Negative [facility] Comment on above: Order Comment: Speci men Type: BLOOD SPECIMEN Ordering Facility: [facility] Address: [address] [place] [address] Performed By: #### C OPPER #### [facility] CLIA [id number] [address] [place] [address] [place] Leukocyte esterase Test strip Ql (U) 1+ Abnormal Negative [facility] Comment on above: Order Comment: Speci men Type: BLOOD SPECIMEN Ordering Facility: [facility] Address: [address] [place] [address] Performed By: #### C OPPER #### [facility] CLIA [id number] [address] [place] [address] [place] Nitrite Ql (U) Negative Normal Negative [facility] Comment on above: Order Comment: Speci men Type: BLOOD SPECIMEN Ordering Facility: [facility] Address: [address] [place] [address] Performed By: #### C OPPER #### [facility] CLIA [id number] [address] [place], [place] [address] [place] pH (U) 5.5 [pH] Normal <8.5 [facility] Comment on above: Order Comment: Speci men Type: BLOOD SPECIMEN Ordering Facility: [facility] Address: [address] [place] [address] Performed By: #### C OPPER #### [facility] CLIA [id number] [address] [place] [address] [place] Protein (U) [Mass/Vol] Negative Normal Negative [facility] Comment on above: Order Comment: Speci men Type: BLOOD SPECIMEN Ordering Facility: [facility] Address: [address] [place] [address] Performed By: #### C OPPER #### [facility] CLIA [id number] [address] [place] [address] [place] RBC LM.HPF (Urine sed) [#/Area] 0-2 /HPF Normal 0-2 /HPF [facility] Comment on above: Order Comment: Speci men Type: BLOOD SPECIMEN Ordering Facility: [facility] Address: [address] [place] [address] Performed By: #### C OPPER #### [facility] CLIA [id number] [address] [place] [address] [place] Specific gravity (U) [Rel density] 1.019 Normal 1.005-1.030 [facility] Comment on above: Order Comment: Speci men Type: BLOOD SPECIMEN Ordering Facility: [facility] Address: [address] [place] [address] Performed By: #### C OPPER #### [facility] CLIA [id number] [address] [place] [address] [place] Urobilinogen Ql (U) 0.2 EU/dL Normal 0.2-1.0 EU/dL [facility] Comment on above: Order Comment: Speci men Type: BLOOD SPECIMEN Ordering Facility: [facility] Address: [address] [place] [address] Performed By: #### C OPPER #### [facility] CLIA [id number] [address] [place] [address] [place] WBC LM.HPF (Urine sed) [#/Area] 0-5 /HPF Normal 0-5 /HPF [facility] Comment on above: Order Comment: Speci men Type: BLOOD SPECIMEN Ordering Facility: [facility] Address: [address] [place] [address] Performed By: #### C OPPER #### [facility] CLIA [id number] [address] [place] [address] [place] Vit B12 SerPl-ncon 024 Cobalamin (Vitamin B12) [Mass/Vol] 905 pg/mL Normal 232-1245 [facility] Comment on above: Order Comment: Speci men Type: BLOOD SPECIMEN Ordering Facility: [facility] Address: [address] [place] [address] Performed By: #### 2 284-8, 2885-2, 2132-9 #### [facility] CLIA [id number] [address] STATES OF [facility] CNPNon 04-01-2024 CNPN Telephone (FAMPWS) -- NAZARIO HUTTON ([id number]) 1950 Date Time Provider Department 04/01/24 GANESH WHITE [facility] During your visit today, we recorded the following information about you: Ganesh White MA 04/01/2024 2:33 PM Signed Patient was in ER for allergic reaction. Dr. Beasley message. Advise patient to stop the losartan. Though it is rare it can cause angio edema. Needs f/u in 3-5 days. Please assist patient for follow up with PCP/team. /LINA Gandara Brittany L, MA 04/01/2024 2:55 PM Signed Unable to reach patient. Left VM to return call to office. Please read below and advise AND assist patient with scheduling ER F/U with PCP team. LINA Small Krystle, RN 04/01/2024 3:36 PM Signed Patient returns call and provider message below reviewed. Scheduled ER appt for 04/04/2024. Pineda Styles RN Allergies As of Date: 04/01/2024 Noted Allergy Reaction HCTZ (HYDROCHLOROTHIAZIDE) 03/04/2008 16 - Unknown Comments: rash Date Reviewed: 02/08/2024 Reviewed by: Raquel Overton, (R) - Fully Assessed Reason for Visit: Appointment [186] Prescriptions as of 04/01/2024 - isosorbide mononitrate ER (IMDUR) 30 mg 24 hr tablet Take 1 tablet by mouth once daily. Per [facility] - allopurinol (ZYLOPRIM) 100 mg tablet TAKE [...] as needed. 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 Onset- when he awoke today. Denies difficulty breathing. No pain. Is able to swallow but has difficulty-sometimes has to spit saliva out. He is referred to ER for further evaluation and treatment. He is agreeable to this and will go to [place] ED. Offered ambulance transport-he refused. He appears stable to self-transport. Report sent via ER passport. Gardenia Villareal APRN.COMMERCIAL REVIEW APPRAISER Allergies As of Date: 03/29/2024 Noted Allergy Reaction HCTZ (HYDROCHLOROTHIAZIDE) 03/04/2008 16 - Unknown Comments: rash Date Reviewed: 02/08/2024 Reviewed by: Raquel Overton, (R) - Fully Assessed Primary Visit Diagnosis:Tongue swelling [R22.0] Prescriptions as of 03/29/2024 - isosorbide mononitrate ER (IMDUR) 30 mg 24 hr tablet Take 1 tablet by mouth once daily. Per [facility] - allopurinol (ZYLOPRIM) 100 mg tablet TAKE [...] as needed. 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 Valeriano Beasley MD Status:REG ER Location: ED HPI History of Present Illness Chief Complaint: Allergic Reaction Narrative Narrative: 70-year-old male past medical history of hypertension, neuropathy, presents with tongue swelling since around 9:00 this morning, approximately 2-1/2 hours ago. He has not taken any medications this morning. States yesterday he took some Tylenol. [facility]. He denies any throat closing or difficulty swallowing, states that his tongue is swollen. He states he has not taken any JOSE inhibitor or lisinopril in years. No exacerbating or alleviating factors. [facility] Medical History Essential hypertension Chest pain Anxiety Depression Myocardial infarct Chest pain Acute blood loss anemia Bloody diarrhea Coronary artery disease Atherosclerotic heart disease of [place] coronary artery without angina pectoris ST elevation SD (STEMI) ( 11/29/21) Hyperlipidemia Hypertension Home Medications ???Medication ???Instructions ???Recorded ???Last Taken ???Type allopurinol 100 mg tablet 100 mg PO DAILY GOUT 03/25/22 09/02/22 History atenolol 50 mg tablet 50 mg PO DAILY HEART 03/25/22 09/02/22 History atorvastatin 80 mg tablet 80 mg PO DAILY CHOLESTEOL 03/25/22 09/01/22 History aspirin 81 mg tablet,delayed 81 mg PO DAILY HEALTH MAINTENANCE 09/02/22 09/02/22 History release ezetimibe 10 mg tablet 10 mg PO DAILY CHOLESTEROL 09/02/22 09/01/22 History nitroglycerin 0.4 mg sublingual 0.4 mg sublingual UD PRN Chest Pain 09/02/22 Unknown History tablet ascorbic acid (vitamin C) 500 mg 1,000 mg (2 x 500 mg) PO BIDCM 30 09/09/22 Unknown Rx tablet days #120 tabs sertraline 50 mg tablet 50 mg PO DAILY 10/19/22 Unknown History doxepin 25 mg capsule 25 mg PO QHS PRN 12/09/22 Unknown History losartan 25 mg tablet 25 mg PO DAILY 01/05/23 Unknown History cholecalciferol (vitamin D3) 125 125 mcg PO DAILY 09/01/23 Unknown History mcg (5,000 unit) capsule diphenhydramine HCl 25 mg tablet 25 mg PO QHS PRN 09/01/23 Unknown History (Allergy (diphenhydramine)) omega 3-dha 100 mg-epa 400 mg-fish cap PO 09/01/23 Unknown History oil 1,000 mg capsule vitamin B complex (B 1 tab PO DAILY 09/01/23 Unknown History Complex-Vitamin B12 tablet) furosemide 40 mg tablet (Lasix) 40 mg PO DAILY #5 tabs 09/06/23 Unknown Rx famotidine 20 mg tablet (Pepcid) 20 mg PO DAILY #7 tabs 03/29/24 Unknown Rx prednisone 20 mg tablet 40 mg (2 x 20 mg) PO DAILY #14 tabs 03/29/24 Unknown Rx Allergy/AdvReac Type Severity Reaction Status Date / Time hydrochlorothiazide Allergy Hives Verified 03/29/24 11:36 Family History Mother COPD (chronic obstructive pulmonary disease) Lung cancer Father Heart disease Hypertension Myocardial infarction age 53 following SD. Surgical History S/P cataract extraction Presence of coronary angioplasty implant and graft ( 11/29/21) Social History household members: none Smoking Status: Former smoker how long ago did patient quit smoking: Smoked from age 18, 1 ppd x 4 years and then quit. alcohol intake: current alcohol intake frequency: 3 or more drinks per day details: Drinks 6 pack beer/day x 1 year following of his . substance use type: does not use ROS ROS ED ROS Narrative Constitutional: No fever, no chills. HEENT: No sore throat. No neck pain. No loss of vision. No rhinorrhea. Positive tongue swelling. No throat closing. No difficulty swallowing. Cardiovascular: No chest pain. No palpitations. No pedal edema. Respiratory: No cough, no shortness of breath. Abdominal: No abdominal pain. No nausea. No vomiting. Genitourinary: No dysuria. No hematuria. Musculoskeletal: No myalgias. No arthralgias. Neurologic: No headaches. No dizziness. No lightheadedness. Skin: No rash. No change in color. Psychiatric: No depression. No anxiety. EXAM Physical Exam Narrative Exam Narrative: Afebrile. Vital signs noted. HEENT examination does show angioedema of the tongue and underneath. Airway is patent. No drooling or trismus. He is able to phonate. Neck is soft and supple without meningismus. Cardiovascular examination reveals a regular rate and rhythm. Lungs are clear to auscultation bilaterally. Abdomen soft nontender with normal active bowel sounds. Neurological examination nonfocal and nonlateralizing. C (more content not included)... Normal [facility] CREATININE [facility] 02-08-2024 Creatinine [Mass/Vol] 0.76 mg/dL Normal 0.73-1.22 [facility] Comment on above: Order Comment: Medina peck Type: BLOOD SPECIMEN Ordering Facility: [facility] Address: [address] [place] [address] Performed By: #### 1 [id number] #### [facility] CLIA [id number] [address] [place], [place] [address] [address] [place] Creatinine and Glomerular filtration rate.predicted panel (S/P/Bld) 95 mL/min/1.73m??? Normal >=60 [facility] Comment on above: Order Comment: Speci liv Type: BLOOD SPECIMEN Ordering Facility: [facility] Address: [address] [place] [address] Result Comment: Micaela mated Glomerular Filtration Rate (eGFR) is calculated using the 2020 CKD-EPI creatinine equation. This equation utilizes serum creatinine, sex, and age as parameters. The creatinine assay has traceable calibration to isotope dilution-mass spectrometry. Refer to KDIGO guidelines for clinical interpretation. In patients with unstable renal function, e.g. those with acute kidney injury, the eGFR may not accurately reflect actual GFR. Performed By: #### 1 [id number] #### [facility] CLIA [id number] [address] [place] [address] [place] [address] Neck W contrast Tamara 01-21 * * *Final Report* * * DATE OF EXAM: Feb 08 2024 3:51PM [facility] 0024 - CTA NECK W IVCON / PROCEDURE REASON: Occlusion and stenosis of unspecified carotid artery * * * * Physician Interpretation * * * * EXAMINATION: CTA HEAD W IVCON, CTA NECK W IVCON HISTORY: Occlusion and stenosis of unspecified carotid artery - - - OtherCarotid stenosis - concern for such on MRA brain with rad recommending further e (accession [id number]), Carotid Stenosis (accession [id number]) - Carotid artery stenosis, Carotid stenosis - concern for such on MRA brain with rad recommending further evaluation by CTA. - - ??? occlusion,prior MRI, no surg - TECHNIQUE: Spiral high resolution axial images were obtained through the head, neck and superior mediastinum following bolus administration of intravenous contrast for CT angiography. 3D maximum intensity projection images were created, reviewed and archived . MQ: CTAHN_4 Contrast: 80 mL Omnipaque [address] Radiation dose: Integrated Dose-Length Product (DLP) for this visit = 875 mGy*cm. CT Dose Reduction Employed: Automated exposure control(AEC) and iterative recon COMPARISON: MRI brain 02/06/2024 RESULT: BRAIN: Evaluation of the individual slices of the CTA demonstrates no evidence of an acute stroke. ASPECT Score = 10 Hemorrhage: No evidence of acute intracranial hemorrhage. ECASS hemorrhagic transformation score: Not Applicable NECK: Soft tissues: The soft tissue planes are maintained throughout. No evidence of a soft tissue mass in the neck or superior mediastinum. No significant lymphadenopathy is seen. Spine: Dextroconvex curvature of the cervical spine apex at C3, likely positional. Multilevel degenerative disc disease with up to mild to moderate spinal canal narrowing at C3-4 and C5-C7. Multilevel variable up to moderate to severe RIGHT neural foraminal narrowing at C5-C7. Lung apices: The visualized lung apices are clear. CT ARTERIOGRAM: Extracranial Circulation: Aortic Arch: There is a normal branching pattern from the aortic arch. Mild calcified and noncalcified atherosclerotic plaque along the proximal LEFT subclavian artery without significant narrowing. No significant narrowing of the branching vessels. Carotid Stenosis: Right Common: No significant stenosis. Right Internal Carotid Plaque: Mild irregular plaque formation. Right Internal Carotid Stenosis (% by NASCET Criteria): 20% Left Common: No significant stenosis. Left Internal Carotid Plaque: No significant plaque formation. Left Internal Carotid Stenosis (% by NASCET Criteria): 0% Cervical Vertebral Arteries: Atherosclerotic calcifications of the RIGHT vertebral artery origin resulting in mild short segment narrowing. Patency: Bilateral Dominance: Left Intracranial Circulation: Anterior Circulation: Atherosclerotic calcifications of the bilateral carotid siphons resulting in up to mild short segment narrowing of the bilateral periophthalmic and paraclinoid ICA segments The distal ICAs are patent. A1 segments are codominant. Distal segments of the ACAs are normal in caliber. Bilateral proximal MCAs are normal in course and caliber. No abrupt vessel occlusion, intraluminal filling defect, high-grade stenosis, or aneurysm in the anterior intracranial circulation. Vertebrobasilar Circulation: The intradural vertebral arteries are patent with dominant LEFT vertebral artery. Atherosclerotic calcifications of the bilateral intradural vertebral arteries resulting in multifocal mild short segment narrowing bilaterally. The basilar trunk is normal in caliber. The proximal PICAs, AICAs, and SCAs are patent and within normal limits of caliber and morphology. The bilateral P1 segments are codominant with patent bilateral posterior communicating arteries. Short segment mild narrowing of the LEFT KENO ATTENDANT P2 segment No abrupt vessel occlusion, intraluminal filling defect, high-grade stenosis, or aneurysm in the posterior intracranial circulation. Opacified dural venous sinuses and major deep and superficial draining veins are patent. Java Websphere Developer (topogram) images: No additional findings. DIVISION OF RADIOLOGY Provider, [facility] - 02/08/2024 * * *Final Report* * * DATE OF EXAM: Feb 08 2024 3:51PM [facility] 0024 - CTA NECK W IVCON / PROCEDURE REASON: Occlusion and stenosis of unspecified carotid artery * * * * Physician Interpretation * * * * EXAMINATION: CTA HEAD W IVCON, CTA NECK W IVCON HISTORY: Occlusion and stenosis of unspecified carotid artery - - - OtherCarotid stenosis - concern for such on MRA brain with rad recommending further e (accession [id number]), Carotid Stenosis (accession [id number]) - Carotid artery stenosis, Carotid stenosis - concern for such on MRA brain with rad recommending further evaluation by CTA. - - ??? occlusion,prior MRI, no surg - TECHNIQUE: Spiral high resolution axial images were obtained through the head, neck and superior mediastinum following bolus administration of intravenous contrast for CT angiography. 3D maximum intensity projection images were created, reviewed and archived . MQ: CTAHN_4 Contrast: 80 mL Omnipaque [address] Radiation dose: Integrated Dose-Length Product (DLP) for this visit = 875 mGy*cm. CT Dose Reduction Employed: Automated exposure control(AEC) and iterative recon COMPARISON: MRI brain 02/06/2024 RESULT: BRAIN: Evaluation of the individual slices of the CTA demonstrates no evidence of an acute stroke. ASPECT Score = 10 Hemorrhage: No evidence of acute intracranial hemorrhage. ECASS hemorrhagic transformation score: Not Applicable NECK: Soft tissues: The soft tissue planes are maintained throughout. No evidence of a soft tissue mass in the neck or superior mediastinum. No significant lymphadenopathy is seen. Spine: Dextroconvex curvature of the cervical spine apex at C3, likely positional. Multilevel degenerative disc disease with up to mild to moderate spinal canal narrowing at C3-4 and C5-C7. Multilevel variable up to moderate to severe RIGHT neural foraminal narrowing at C5-C7. Lung apices: The visualized lung apices are clear. CT ARTERIOGRAM: Extracranial Circulation: Aortic Arch: There is a normal branching pattern from the aortic arch. Mild calcified and noncalcified atherosclerotic plaque along the proximal LEFT subclavian artery without significant narrowing. No significant narrowing of the branching vessels. Carotid Stenosis: Right Common: No significant stenosis. Right Internal Carotid Plaque: Mild irregular plaque formation. Right Internal Carotid Stenosis (% by NASCET Criteria): 20% Left Common: No significant stenosis. Left Internal Carotid Plaque: No significant plaque formation. Left Internal Carotid Stenosis (% by NASCET Criteria): 0% Cervical Vertebral Arteries: Atherosclerotic calcifications of the RIGHT vertebral artery origin resulting in mild short segment narrowing. Patency: Bilateral Dominance: Left Intracranial Circulation: Anterior Circulation: Atherosclerotic calcifications of the bilateral carotid siphons resulting in up to mild short segment narrowing of the bilateral periophthalmic and paraclinoid ICA segments The distal ICAs are patent. A1 segments are codominant. Distal segments of the ACAs are normal in caliber. Bilateral proximal MCAs are normal in course and caliber. No abrupt vessel occlusion, intraluminal filling defect, high-grade stenosis, or aneurysm in the anterior intracranial circulation. Vertebrobasilar Circulation: The intradural vertebral arteries are patent with dominant LEFT vertebral artery. Atherosclerotic calcifications of the bilateral intradural vertebral arteries resulting in multifocal mild short segment narrowing bilaterally. The basilar trunk is normal in caliber. The proximal PICAs, AICAs, and SCAs are patent and within normal limits of caliber and morphology. The bilateral P1 segments are codominant with patent bilateral posterior communicating arteries. Short segment mild narrowing of the LEFT KENO ATTENDANT P2 segment No abrupt vessel occlusion, intraluminal filling defect, high-grade stenosis, or aneurysm in the posterior intracranial circulation. Opacified dural venous sinuses and major deep and superficial draining veins are patent. Java Websphere Developer (topogram) images: No additional findings. IMPRESSION IMPRESSION: No hemodynamically significant stenosis of the extracranial carotid or vertebral artery segments. Specifically, no significant narrowing of the LEFT common iliac artery as queried on prior MRA. No large vessel occlusion, high-grade stenosis, or aneurysm within the major intracranial arteries. Arterial blood flow was measured to detect acute large vessel occlusion by computer aided detection software: Not Performed. Concordance between software and imaging review: Not Applicable. Industrial Editor: DULCE Transcribe Date/Time: Feb 08 2024 3:55P Dictated by : CINDY DRAPER MD This examination was (more content not included)... [facility] CTA HEAD W IVCONon 4 CTA HEAD W IVCON * * *Final Report* * * DATE OF EXAM: Feb 08 2024 3:51PM [facility] 0022 - CTA HEAD W IVCON / PROCEDURE REASON: Occlusion and stenosis of unspecified carotid artery * * * * Physician Interpretation * * * * EXAMINATION: CTA HEAD W IVCON, CTA NECK W IVCON HISTORY: Occlusion and stenosis of unspecified carotid artery - - - OtherCarotid stenosis - concern for such on MRA brain with rad recommending further e (accession [id number]), Carotid Stenosis (accession [id number]) - Carotid artery stenosis, Carotid stenosis - concern for such on MRA brain with rad recommending further evaluation by CTA. - - ??? occlusion,prior MRI, no surg - TECHNIQUE: Spiral high resolution axial images were obtained through the head, neck and superior mediastinum following bolus administration of intravenous contrast for CT angiography. 3D maximum intensity projection images were created, reviewed and archived . MQ: CTAHN_4 Contrast: 80 mL Omnipaque [address] Radiation dose: Integrated Dose-Length Product (DLP) for this visit = 875 mGy*cm. CT Dose Reduction Employed: Automated exposure control(AEC) and iterative recon COMPARISON: MRI brain 02/06/2024 RESULT: BRAIN: Evaluation of the individual slices of the CTA demonstrates no evidence of an acute stroke. ASPECT Score = 10 Hemorrhage: No evidence of acute intracranial hemorrhage. ECASS hemorrhagic transformation score: Not Applicable NECK: Soft tissues: The soft tissue planes are maintained throughout. No evidence of a soft tissue mass in the neck or superior mediastinum. No significant lymphadenopathy is seen. Spine: Dextroconvex curvature of the cervical spine apex at C3, likely positional. Multilevel degenerative disc disease with up to mild to moderate spinal canal narrowing at C3-4 and C5-C7. Multilevel variable up to moderate to severe RIGHT neural foraminal narrowing at C5-C7. Lung apices: The visualized lung apices are clear. CT ARTERIOGRAM: Extracranial Circulation: Aortic Arch: There is a normal branching pattern from the aortic arch. Mild calcified and noncalcified atherosclerotic plaque along the proximal LEFT subclavian artery without significant narrowing. No significant narrowing of the branching vessels. Carotid Stenosis: Right Common: No significant stenosis. Right Internal Carotid Plaque: Mild irregular plaque formation. Right Internal Carotid Stenosis (% by NASCET Criteria): 20% Left Common: No significant stenosis. Left Internal Carotid Plaque: No significant plaque formation. Left Internal Carotid Stenosis (% by NASCET Criteria): 0% Cervical Vertebral Arteries: Atherosclerotic calcifications of the RIGHT vertebral artery origin resulting in mild short segment narrowing. Patency: Bilateral Dominance: Left Intracranial Circulation: Anterior Circulation: Atherosclerotic calcifications of the bilateral carotid siphons resulting in up to mild short segment narrowing of the bilateral periophthalmic and paraclinoid ICA segments The distal ICAs are patent. A1 segments are codominant. Distal segments of the ACAs are normal in caliber. Bilateral proximal MCAs are normal in course and caliber. No abrupt vessel occlusion, intraluminal filling defect, high-grade stenosis, or aneurysm in the anterior intracranial circulation. Vertebrobasilar Circulation: The intradural vertebral arteries are patent with dominant LEFT vertebral artery. Atherosclerotic calcifications of the bilateral intradural vertebral arteries resulting in multifocal mild short segment narrowing bilaterally. The basilar trunk is normal in caliber. The proximal PICAs, AICAs, and SCAs are patent and within normal limits of caliber and morphology. The bilateral P1 segments are codominant with patent bilateral posterior communicating arteries. Short segment mild narrowing of the LEFT KENO ATTENDANT P2 segment No abrupt vessel occlusion, intraluminal filling defect, high-grade stenosis, or aneurysm in the posterior intracranial circulation. Opacified dural venous sinuses and major deep and superficial draining veins are patent. Java Websphere Developer (topogram) images: No additional findings. IMPRESSION: No hemodynamically significant stenosis of the extracranial carotid or vertebral artery segments. Specifically, no significant narrowing of the LEFT common iliac artery as queried on prior MRA. No large vessel occlusion, high-grade stenosis, or aneurysm within the major intracranial arteries. Arterial blood flow was measured to detect acute large vessel occlusion by computer aided detection software: Not Performed. Concordance between software and imaging review: Not Applicable. Industrial Editor: DULCE Transcribe Date/Time: Feb 08 2024 3:55P Dictated by : CINDY DRAPER MD This examination was interpreted and the report reviewed and electronically signed by: CINDY DRAPER MD on Feb 08 2024 4:16PM EST [id number] Normal [facility] CTA Head Arteries W contrast Tamara 02-08-2024 * * *Final Report* * * DATE OF EXAM: Feb 08 2024 3:51PM [facility] 0022 - CTA HEAD W IVCON / PROCEDURE REASON: Occlusion and stenosis of unspecified carotid artery * * * * Physician Interpretation * * * * EXAMINATION: CTA HEAD W IVCON, CTA NECK W IVCON HISTORY: Occlusion and stenosis of unspecified carotid artery - - - OtherCarotid stenosis - concern for such on MRA brain with rad recommending further e (accession [id number]), Carotid Stenosis (accession [id number]) - Carotid artery stenosis, Carotid stenosis - concern for such on MRA brain with rad recommending further evaluation by CTA. - - ??? occlusion,prior MRI, no surg - TECHNIQUE: Spiral high resolution axial images were obtained through the head, neck and superior mediastinum following bolus administration of intravenous contrast for CT angiography. 3D maximum intensity projection images were created, reviewed and archived . MQ: CTAHN_4 Contrast: 80 mL Omnipaque [address] Radiation dose: Integrated Dose-Length Product (DLP) for this visit = 875 mGy*cm. CT Dose Reduction Employed: Automated exposure control(AEC) and iterative recon COMPARISON: MRI brain 02/06/2024 RESULT: BRAIN: Evaluation of the individual slices of the CTA demonstrates no evidence of an acute stroke. ASPECT Score = 10 Hemorrhage: No evidence of acute intracranial hemorrhage. ECASS hemorrhagic transformation score: Not Applicable NECK: Soft tissues: The soft tissue planes are maintained throughout. No evidence of a soft tissue mass in the neck or superior mediastinum. No significant lymphadenopathy is seen. Spine: Dextroconvex curvature of the cervical spine apex at C3, likely positional. Multilevel degenerative disc disease with up to mild to moderate spinal canal narrowing at C3-4 and C5-C7. Multilevel variable up to moderate to severe RIGHT neural foraminal narrowing at C5-C7. Lung apices: The visualized lung apices are clear. CT ARTERIOGRAM: Extracranial Circulation: Aortic Arch: There is a normal branching pattern from the aortic arch. Mild calcified and noncalcified atherosclerotic plaque along the proximal LEFT subclavian artery without significant narrowing. No significant narrowing of the branching vessels. Carotid Stenosis: Right Common: No significant stenosis. Right Internal Carotid Plaque: Mild irregular plaque formation. Right Internal Carotid Stenosis (% by NASCET Criteria): 20% Left Common: No significant stenosis. Left Internal Carotid Plaque: No significant plaque formation. Left Internal Carotid Stenosis (% by NASCET Criteria): 0% Cervical Vertebral Arteries: Atherosclerotic calcifications of the RIGHT vertebral artery origin resulting in mild short segment narrowing. Patency: Bilateral Dominance: Left Intracranial Circulation: Anterior Circulation: Atherosclerotic calcifications of the bilateral carotid siphons resulting in up to mild short segment narrowing of the bilateral periophthalmic and paraclinoid ICA segments The distal ICAs are patent. A1 segments are codominant. Distal segments of the ACAs are normal in caliber. Bilateral proximal MCAs are normal in course and caliber. No abrupt vessel occlusion, intraluminal filling defect, high-grade stenosis, or aneurysm in the anterior intracranial circulation. Vertebrobasilar Circulation: The intradural vertebral arteries are patent with dominant LEFT vertebral artery. Atherosclerotic calcifications of the bilateral intradural vertebral arteries resulting in multifocal mild short segment narrowing bilaterally. The basilar trunk is normal in caliber. The proximal PICAs, AICAs, and SCAs are patent and within normal limits of caliber and morphology. The bilateral P1 segments are codominant with patent bilateral posterior communicating arteries. Short segment mild narrowing of the LEFT KENO ATTENDANT P2 segment No abrupt vessel occlusion, intraluminal filling defect, high-grade stenosis, or aneurysm in the posterior intracranial circulation. Opacified dural venous sinuses and major deep and superficial draining veins are patent. Java Websphere Developer (topogram) images: No additional findings. DIVISION OF RADIOLOGY Provider, [facility] - 02/08/2024 * * *Final Report* * * DATE OF EXAM: Feb 08 2024 3:51PM [facility] 0022 - CTA HEAD W IVCON / PROCEDURE REASON: Occlusion and stenosis of unspecified carotid artery * * * * Physician Interpretation * * * * EXAMINATION: CTA HEAD W IVCON, CTA NECK W IVCON HISTORY: Occlusion and stenosis of unspecified carotid artery - - - OtherCarotid stenosis - concern for such on MRA brain with rad recommending further e (accession [id number]), Carotid Stenosis (accession [id number]) - Carotid artery stenosis, Carotid stenosis - concern for such on MRA brain with rad recommending further evaluation by CTA. - - ??? occlusion,prior MRI, no surg - TECHNIQUE: Spiral high resolution axial images were obtained through the head, neck and superior mediastinum following bolus administration of intravenous contrast for CT angiography. 3D maximum intensity projection images were created, reviewed and archived . MQ: CTAHN_4 Contrast: 80 mL Omnipaque [address] Radiation dose: Integrated Dose-Length Product (DLP) for this visit = 875 mGy*cm. CT Dose Reduction Employed: Automated exposure control(AEC) and iterative recon COMPARISON: MRI brain 02/06/2024 RESULT: BRAIN: Evaluation of the individual slices of the CTA demonstrates no evidence of an acute stroke. ASPECT Score = 10 Hemorrhage: No evidence of acute intracranial hemorrhage. ECASS hemorrhagic transformation score: Not Applicable NECK: Soft tissues: The soft tissue planes are maintained throughout. No evidence of a soft tissue mass in the neck or superior mediastinum. No significant lymphadenopathy is seen. Spine: Dextroconvex curvature of the cervical spine apex at C3, likely positional. Multilevel degenerative disc disease with up to mild to moderate spinal canal narrowing at C3-4 and C5-C7. Multilevel variable up to moderate to severe RIGHT neural foraminal narrowing at C5-C7. Lung apices: The visualized lung apices are clear. CT ARTERIOGRAM: Extracranial Circulation: Aortic Arch: There is a normal branching pattern from the aortic arch. Mild calcified and noncalcified atherosclerotic plaque along the proximal LEFT subclavian artery without significant narrowing. No significant narrowing of the branching vessels. Carotid Stenosis: Right Common: No significant stenosis. Right Internal Carotid Plaque: Mild irregular plaque formation. Right Internal Carotid Stenosis (% by NASCET Criteria): 20% Left Common: No significant stenosis. Left Internal Carotid Plaque: No significant plaque formation. Left Internal Carotid Stenosis (% by NASCET Criteria): 0% Cervical Vertebral Arteries: Atherosclerotic calcifications of the RIGHT vertebral artery origin resulting in mild short segment narrowing. Patency: Bilateral Dominance: Left Intracranial Circulation: Anterior Circulation: Atherosclerotic calcifications of the bilateral carotid siphons resulting in up to mild short segment narrowing of the bilateral periophthalmic and paraclinoid ICA segments The distal ICAs are patent. A1 segments are codominant. Distal segments of the ACAs are normal in caliber. Bilateral proximal MCAs are normal in course and caliber. No abrupt vessel occlusion, intraluminal filling defect, high-grade stenosis, or aneurysm in the anterior intracranial circulation. Vertebrobasilar Circulation: The intradural vertebral arteries are patent with dominant LEFT vertebral artery. Atherosclerotic calcifications of the bilateral intradural vertebral arteries resulting in multifocal mild short segment narrowing bilaterally. The basilar trunk is normal in caliber. The proximal PICAs, AICAs, and SCAs are patent and within normal limits of caliber and morphology. The bilateral P1 segments are codominant with patent bilateral posterior communicating arteries. Short segment mild narrowing of the LEFT KENO ATTENDANT P2 segment No abrupt vessel occlusion, intraluminal filling defect, high-grade stenosis, or aneurysm in the posterior intracranial circulation. Opacified dural venous sinuses and major deep and superficial draining veins are patent. Java Websphere Developer (topogram) images: No additional findings. IMPRESSION IMPRESSION: No hemodynamically significant stenosis of the extracranial carotid or vertebral artery segments. Specifically, no significant narrowing of the LEFT common iliac artery as queried on prior MRA. No large vessel occlusion, high-grade stenosis, or aneurysm within the major intracranial arteries. Arterial blood flow was measured to detect acute large vessel occlusion by computer aided detection software: Not Performed. Concordance between software and imaging review: Not Applicable. Industrial Editor: DULCE Transcribe Date/Time: Feb 08 2024 3:55P Dictated by : CINDY DRAPER MD This examination was (more content not included)... [facility] CTA NECK W IVCONon CTA NECK W IVCON * * *Final Report* * * DATE OF EXAM: Feb 08 2024 3:51PM [facility] 0024 - CTA NECK W IVCON / PROCEDURE REASON: Occlusion and stenosis of unspecified carotid artery * * * * Physician Interpretation * * * * EXAMINATION: CTA HEAD W IVCON, CTA NECK W IVCON HISTORY: Occlusion and stenosis of unspecified carotid artery - - - OtherCarotid stenosis - concern for such on MRA brain with rad recommending further e (accession [id number]), Carotid Stenosis (accession [id number]) - Carotid artery stenosis, Carotid stenosis - concern for such on MRA brain with rad recommending further evaluation by CTA. - - ??? occlusion,prior MRI, no surg - TECHNIQUE: Spiral high resolution axial images were obtained through the head, neck and superior mediastinum following bolus administration of intravenous contrast for CT angiography. 3D maximum intensity projection images were created, reviewed and archived . MQ: CTAHN_4 Contrast: 80 mL Omnipaque [address] Radiation dose: Integrated Dose-Length Product (DLP) for this visit = 875 mGy*cm. CT Dose Reduction Employed: Automated exposure control(AEC) and iterative recon COMPARISON: MRI brain 02/06/2024 RESULT: BRAIN: Evaluation of the individual slices of the CTA demonstrates no evidence of an acute stroke. ASPECT Score = 10 Hemorrhage: No evidence of acute intracranial hemorrhage. ECASS hemorrhagic transformation score: Not Applicable NECK: Soft tissues: The soft tissue planes are maintained throughout. No evidence of a soft tissue mass in the neck or superior mediastinum. No significant lymphadenopathy is seen. Spine: Dextroconvex curvature of the cervical spine apex at C3, likely positional. Multilevel degenerative disc disease with up to mild to moderate spinal canal narrowing at C3-4 and C5-C7. Multilevel variable up to moderate to severe RIGHT neural foraminal narrowing at C5-C7. Lung apices: The visualized lung apices are clear. CT ARTERIOGRAM: Extracranial Circulation: Aortic Arch: There is a normal branching pattern from the aortic arch. Mild calcified and noncalcified atherosclerotic plaque along the proximal LEFT subclavian artery without significant narrowing. No significant narrowing of the branching vessels. Carotid Stenosis: Right Common: No significant stenosis. Right Internal Carotid Plaque: Mild irregular plaque formation. Right Internal Carotid Stenosis (% by NASCET Criteria): 20% Left Common: No significant stenosis. Left Internal Carotid Plaque: No significant plaque formation. Left Internal Carotid Stenosis (% by NASCET Criteria): 0% Cervical Vertebral Arteries: Atherosclerotic calcifications of the RIGHT vertebral artery origin resulting in mild short segment narrowing. Patency: Bilateral Dominance: Left Intracranial Circulation: Anterior Circulation: Atherosclerotic calcifications of the bilateral carotid siphons resulting in up to mild short segment narrowing of the bilateral periophthalmic and paraclinoid ICA segments The distal ICAs are patent. A1 segments are codominant. Distal segments of the ACAs are normal in caliber. Bilateral proximal MCAs are normal in course and caliber. No abrupt vessel occlusion, intraluminal filling defect, high-grade stenosis, or aneurysm in the anterior intracranial circulation. Vertebrobasilar Circulation: The intradural vertebral arteries are patent with dominant LEFT vertebral artery. Atherosclerotic calcifications of the bilateral intradural vertebral arteries resulting in multifocal mild short segment narrowing bilaterally. The basilar trunk is normal in caliber. The proximal PICAs, AICAs, and SCAs are patent and within normal limits of caliber and morphology. The bilateral P1 segments are codominant with patent bilateral posterior communicating arteries. Short segment mild narrowing of the LEFT KENO ATTENDANT P2 segment No abrupt vessel occlusion, intraluminal filling defect, high-grade stenosis, or aneurysm in the posterior intracranial circulation. Opacified dural venous sinuses and major deep and superficial draining veins are patent. Java Websphere Developer (topogram) images: No additional findings. IMPRESSION: No hemodynamically significant stenosis of the extracranial carotid or vertebral artery segments. Specifically, no significant narrowing of the LEFT common iliac artery as queried on prior MRA. No large vessel occlusion, high-grade stenosis, or aneurysm within the major intracranial arteries. Arterial blood flow was measured to detect acute large vessel occlusion by computer aided detection software: Not Performed. Concordance between software and imaging review: Not Applicable. Industrial Editor: PSCB Transcribe Date/Time: Feb 08 2024 3:55P Dictated by : CINDY DRAPER MD This examination was interpreted and the report reviewed and electronically signed by: CINDY DRAPER MD on Feb 08 2024 4:16PM EST [id number] Normal [facility] No Panel Informationon 02-07 IMPRESSION: No hemodynamically significant stenosis of the extracranial carotid or vertebral artery segments. Specifically, no significant narrowing of the LEFT common iliac artery as queried on prior MRA. No large vessel occlusion, high-grade stenosis, or aneurysm within the major intracranial arteries. Arterial blood flow was measured to detect acute large vessel occlusion by computer aided detection software: Not Performed. Concordance between software and imaging review: Not Applicable. Industrial Editor: DULCE Transcribe Date/Time: Feb 08 2024 3:55P Dictated by : CINDY DRAPER MD This examination was interpreted and the report reviewed and electronically signed by: CINDY DRAPER MD on Feb 08 2024 4:16PM [facility] DIVISION OF RADIOLOGY Radiology Study observation (narrative) [facility] No Panel InformationOrdered By: [facility] Provider on 02-08-2024 [facility] CNPNon 02-06-2024 [facility] Telephone (JOSE JUAN) -- NAZARIO HUTTON ([id number]) 1950 Date Time Provider Department 02/06/24 PATRIA KHANNA JR During your visit today, we recorded the following information about you: Bhavani Turk LPN 02/06/2024 11:10 AM Signed ----- Message from Patria Khanna Jr., MD sent at 02/06/2024 11:02 AM EDT ----- Please inform patient that the MRA did show possible severe narrowing of the L carotid artery. Radiology is recommending this be confirmed with CTA. If patient willing, and would recommend it be completed, I will place order for CTA to further evaluate. Please let me know. Thank you, MD Geovanna Priest Jessica, LPN 02/06/2024 11:13 AM Signed TC to pt with no answer, left VM to return call. SUSHIL Madsen Barbara, RN 02/06/2024 4:08 PM Signed Pt returned the call and will proceed with CTA head/neck with IV contrast as soon as possible. Please contact pt to set up appt as soon as order is placed. Pt aware it needs to be done as soon as possible. Pt has viewed some results on his MyChart. Pt has a lot of questions. Answered to the best of my knowledge-aware that further testing will help answer some of his questions. Explained to pt that the MRI of the brain, MRA of the brain and the MRA of the carotid all had the same Impression. Patria Khanna Jr., MD 02/07/2024 8:44 AM Signed Please schedule pt with neuro ODALIS JOSE LUIS for follow up. I will also place order for vascular consult now. If no stenosis on CTA we can cancel. MD Carrie Priest William J Jr., MD 02/07/2024 8:45 AM Signed Addended by: PATRIA KHANNA on: 02/07/2024 08:45 AM Modules accepted: Bhavani Horowitz LPN 02/07/2024 9:21 AM Signed Please assist pt in scheduling CTA. Please assist in scheduling a follow up with neuro ODALIS after scans. SUSHIL Madsen Gillian, OCCA 02/09/2024 9:00 AM Signed Patria Khanna Jr., MD P Wstr Neur Carrie Nurse Please let pt know that CTA shows no carotid stenosis. No further workup is needed. Please cancel order placed with vascular. Thank you. Patria Khanna MD TC to patient with no answer. Left VM to return call. YASMEEN Childers M Robin, RN 02/09/2024 2:50 PM Addendum Pt returned call and given provider's message below with verbalized understanding. There is not an option to cancel vascular consult, but did notify patient. Allergies As of Date: 02/06/2024 Noted Allergy Reaction HCTZ (HYDROCHLOROTHIAZIDE) 03/04/2008 16 - Unknown Comments: rash Date Reviewed: 01/01/2024 Reviewed by: Patria Khanna Jr., MD - Fully Assessed Reason for Visit: Results [95] Primary Visit Diagnosis:Occlusion and stenosis of unspecified carotid artery [I65.29] Other Visit Diagnoses:Nephropathy screen [Z13.89] Stenosis of carotid artery, unspecified laterality [I65.29] Order(s):CTA HEAD W IVCON [5241721] Order #: [id number] FUTURE CTA NECK W IVCON [[id number]] Order #: [id number] FUTURE CREATININE BLD [SQCRET] Order #: [id number] FUTURE CTA HEAD W IVCON [[id number]] Order #: [id number] FUTURE CTA NECK W IVCON [[id number]] Order #: [id number] FUTURE CREATININE BLD [SQCRET] Order #: [id number] FUTURE CONSULT TO VASCULAR SURGERY [9041] Order #: [id number]: 1 FUTURE Prescriptions as of 02/09/2024 - isosorbide mononitrate ER (IMDUR) 30 mg 24 hr tablet Take 1 tablet by mouth once daily. Per [facility] - allopurinol (ZYLOPRIM) 100 mg tablet TAKE [...] as needed. Problem List As Of Date 02/06/2024 Noted Resolved Essential hy (more content not included)... Normal [facility] MR Brain WO contraston 02-05 * * *Final Report* * * DATE OF EXAM: Feb 06 2024 10:00AM [facility] 0294 - MRI BRAIN WO IVCON / PROCEDURE REASON: Other symptoms and signs involving the nervous system * * * * Physician Interpretation * * * * EXAMINATION: MRA BRAIN WO IVCON, MRA CAROTID WO IVCON, MRI BRAIN WO IVCON CLINICAL HISTORY: Vertebrobasilar insufficiency TECHNIQUE: Routine noncontrast MRI protocol including diffusion and gradient echo images. Intracranial and extracranial 3D [id number] MRA with post-processing performed at the modality and 2D multiplanar and 3D maximum intensity projections were created, reviewed and archived. MQ: MRBBWO_3 COMPARISON: None. RESULT: BRAIN: Acute Change: There is no evidence of restricted diffusion to suggest an acute infarct. Hemorrhage: Remote petechial hemorrhage is present within the left paramedian damion and the posterior right frontal lobe. Mass Lesion/ Mass Effect: No evidence of an intracranial mass or extra-axial fluid collection. No mass effect. Chronic Change: The white matter is within normal limits of signal intensity for age. Parenchyma: No significant volume loss for age. The brain parenchyma is otherwise within normal limits of signal intensity and morphology. Ventricles: Normal caliber and morphology. Skull Base: Hypothalamic and pituitary region are grossly normal. Craniocervical junction is normal. No significant marrow replacement process. Vasculature: Major intracranial arterial structures, and dural venous sinuses show typical flow void, suggesting patency by spin echo criteria. Other: Polypoid mucosal thickening and retention cysts are present in the left maxillary and bilateral ethmoid sinuses. The orbits and extracranial soft tissues are unremarkable. INTRACRANIAL MRA: Anterior circulation: No evidence of flow-limiting stenosis, occlusion, or aneurysm. Posterior circulation: No evidence of flow-limiting stenosis, occlusion, or aneurysm. EXTRACRANIAL MRA: Carotid Stenosis: Right Common: No significant stenosis. Right Internal Plaque: No significant plaque formation. Right Internal Carotid Stenosis (% by NASCET Criteria): 0 Left Common: Findings are concerning for high-grade flow-limiting stenosis of the mid left common carotid artery, although this may be artifactual in etiology. Left Internal Carotid Plaque: No significant plaque formation. Left Internal Carotid Stenosis (% by NASCET Criteria): 0 Cervical Vertebral Arteries: Patency: No evidence of flow-limiting stenosis or occlusion involving the imaged portions of the vertebral arteries. Dominance: Left dominant. DIVISION OF RADIOLOGY Provider, Shelley Manzano [facility] - 02/06/2024 * * *Final Report* * * DATE OF EXAM: Feb 06 2024 10:00AM [facility] 0294 - MRI BRAIN WO IVCON / PROCEDURE REASON: Other symptoms and signs involving the nervous system * * * * Physician Interpretation * * * * EXAMINATION: MRA BRAIN WO IVCON, MRA CAROTID WO IVCON, MRI BRAIN WO IVCON CLINICAL HISTORY: Vertebrobasilar insufficiency TECHNIQUE: Routine noncontrast MRI protocol including diffusion and gradient echo images. Intracranial and extracranial 3D [id number] MRA with post-processing performed at the modality and 2D multiplanar and 3D maximum intensity projections were created, reviewed and archived. MQ: MRBBWO_3 COMPARISON: None. RESULT: BRAIN: Acute Change: There is no evidence of restricted diffusion to suggest an acute infarct. Hemorrhage: Remote petechial hemorrhage is present within the left paramedian damion and the posterior right frontal lobe. Mass Lesion/ Mass Effect: No evidence of an intracranial mass or extra-axial fluid collection. No mass effect. Chronic Change: The white matter is within normal limits of signal intensity for age. Parenchyma: No significant volume loss for age. The brain parenchyma is otherwise within normal limits of signal intensity and morphology. Ventricles: Normal caliber and morphology. Skull Base: Hypothalamic and pituitary region are grossly normal. Craniocervical junction is normal. No significant marrow replacement process. Vasculature: Major intracranial arterial structures, and dural venous sinuses show typical flow void, suggesting patency by spin echo criteria. Other: Polypoid mucosal thickening and retention cysts are present in the left maxillary and bilateral ethmoid sinuses. The orbits and extracranial soft tissues are unremarkable. INTRACRANIAL MRA: Anterior circulation: No evidence of flow-limiting stenosis, occlusion, or aneurysm. Posterior circulation: No evidence of flow-limiting stenosis, occlusion, or aneurysm. EXTRACRANIAL MRA: Carotid Stenosis: Right Common: No significant stenosis. Right Internal Plaque: No significant plaque formation. Right Internal Carotid Stenosis (% by NASCET Criteria): 0 Left Common: Findings are concerning for high-grade flow-limiting stenosis of the mid left common carotid artery, although this may be artifactual in etiology. Left Internal Carotid Plaque: No significant plaque formation. Left Internal Carotid Stenosis (% by NASCET Criteria): 0 Cervical Vertebral Arteries: Patency: No evidence of flow-limiting stenosis or occlusion involving the imaged portions of the vertebral arteries. Dominance: Left dominant. IMPRESSION IMPRESSION: No acute intracranial abnormality or evidence of remote infarct. No substantial white matter disease for the patient's age. Findings are concerning for high-grade flow-limiting stenosis of the mid left common carotid artery, although this may be artifactual in etiology. Recommend CTA of the neck for further evaluation. Normal MRA of the brain. ACTIONABLE RESULT: FOLLOW-UP Acuity: Actionable Findings: Neurological System-CV Routing Code: NI_3 Recommendation: CTA HEAD/NECK WITH IV CONTRAST Time Frame: as soon as possible, when the patient's clinical state allows. COMMUNICATION: Results will be communicated with the ordering provider via [employer] staff message or phone message by [employer] within 2 business days of report finalization. --END OF FINDING-- Industrial Editor: DULCE Transcribe Date/Time: Feb 06 2024 10:35A Dictated by : ILANA LAWRENCE MD This examination was interpreted and the report reviewed and electronically signed by: ILANA LAWRENCE MD on Feb 06 2024 10:43AM [facility] MRA BRAIN WO IVCONon 02-05- 024 MRA BRAIN WO IVCON * * *Final Report* * * DATE OF EXAM: Feb 06 2024 10:00AM [facility] 0272 - MRA BRAIN WO IVCON / PROCEDURE REASON: Other symptoms and signs involving the nervous system * * * * Physician Interpretation * * * * EXAMINATION: MRA BRAIN WO IVCON, MRA CAROTID WO IVCON, MRI BRAIN WO IVCON CLINICAL HISTORY: Vertebrobasilar insufficiency TECHNIQUE: Routine noncontrast MRI protocol including diffusion and gradient echo images. Intracranial and extracranial 3D [id number]-tt-[id number] MRA with post-processing performed at the modality and 2D multiplanar and 3D maximum intensity projections were created, reviewed and archived. MQ: MRBBWO_3 COMPARISON: None. RESULT: BRAIN: Acute Change: There is no evidence of restricted diffusion to suggest an acute infarct. Hemorrhage: Remote petechial hemorrhage is present within the left paramedian damion and the posterior right frontal lobe. Mass Lesion/ Mass Effect: No evidence of an intracranial mass or extra-axial fluid collection. No mass effect. Chronic Change: The white matter is within normal limits of signal intensity for age. Parenchyma: No significant volume loss for age. The brain parenchyma is otherwise within normal limits of signal intensity and morphology. Ventricles: Normal caliber and morphology. Skull Base: Hypothalamic and pituitary region are grossly normal. Craniocervical junction is normal. No significant marrow replacement process. Vasculature: Major intracranial arterial structures, and dural venous sinuses show typical flow void, suggesting patency by spin echo criteria. Other: Polypoid mucosal thickening and retention cysts are present in the left maxillary and bilateral ethmoid sinuses. The orbits and extracranial soft tissues are unremarkable. INTRACRANIAL MRA: Anterior circulation: No evidence of flow-limiting stenosis, occlusion, or aneurysm. Posterior circulation: No evidence of flow-limiting stenosis, occlusion, or aneurysm. EXTRACRANIAL MRA: Carotid Stenosis: Right Common: No significant stenosis. Right Internal Plaque: No significant plaque formation. Right Internal Carotid Stenosis (% by NASCET Criteria): 0 Left Common: Findings are concerning for high-grade flow-limiting stenosis of the mid left common carotid artery, although this may be artifactual in etiology. Left Internal Carotid Plaque: No significant plaque formation. Left Internal Carotid Stenosis (% by NASCET Criteria): 0 Cervical Vertebral Arteries: Patency: No evidence of flow-limiting stenosis or occlusion involving the imaged portions of the vertebral arteries. Dominance: Left dominant. IMPRESSION: No acute intracranial abnormality or evidence of remote infarct. No substantial white matter disease for the patient's age. Findings are concerning for high-grade flow-limiting stenosis of the mid left common carotid artery, although this may be artifactual in etiology. Recommend CTA of the neck for further evaluation. Normal MRA of the brain. ACTIONABLE RESULT: FOLLOW-UP Acuity: Actionable Findings: Neurological System-CV Routing Code: NI_3 Recommendation: CTA HEAD/NECK WITH IV CONTRAST Time Frame: as soon as possible, when the patient's clinical state allows. COMMUNICATION: Results will be communicated with the ordering provider via [employer] staff message or phone message by [facility] [employer] [facility] within 2 business days of report finalization. --END OF FINDING-- Industrial Editor: DULCE Transcribe Date/Time: Feb 06 2024 10:35A Dictated by : ILANA LAWRENCE MD This examination was interpreted and the report reviewed and electronically signed by: ILANA LAWRENCE MD on Feb 06 2024 10:43AM EST [id number] ACTIONABLE Invalid Interpretation Code [facility] MRA CAROTID WO IVCONon 02-05 MRA CAROTID WO IVCON * * *Final Report* * * DATE OF EXAM: Feb 06 2024 10:00AM [facility] 0275 - MRA CAROTID WO IVCON / PROCEDURE REASON: Other symptoms and signs involving the nervous system * * * * Physician Interpretation * * * * EXAMINATION: MRA BRAIN WO IVCON, MRA CAROTID WO IVCON, MRI BRAIN WO IVCON CLINICAL HISTORY: Vertebrobasilar insufficiency TECHNIQUE: Routine noncontrast MRI protocol including diffusion and gradient echo images. Intracranial and extracranial 3D [id number] MRA with post-processing performed at the modality and 2D multiplanar and 3D maximum intensity projections were created, reviewed and archived. MQ: MRBBWO_3 COMPARISON: None. RESULT: BRAIN: Acute Change: There is no evidence of restricted diffusion to suggest an acute infarct. Hemorrhage: Remote petechial hemorrhage is present within the left paramedian damion and the posterior right frontal lobe. Mass Lesion/ Mass Effect: No evidence of an intracranial mass or extra-axial fluid collection. No mass effect. Chronic Change: The white matter is within normal limits of signal intensity for age. Parenchyma: No significant volume loss for age. The brain parenchyma is otherwise within normal limits of signal intensity and morphology. Ventricles: Normal caliber and morphology. Skull Base: Hypothalamic and pituitary region are grossly normal. Craniocervical junction is normal. No significant marrow replacement process. Vasculature: Major intracranial arterial structures, and dural venous sinuses show typical flow void, suggesting patency by spin echo criteria. Other: Polypoid mucosal thickening and retention cysts are present in the left maxillary and bilateral ethmoid sinuses. The orbits and extracranial soft tissues are unremarkable. INTRACRANIAL MRA: Anterior circulation: No evidence of flow-limiting stenosis, occlusion, or aneurysm. Posterior circulation: No evidence of flow-limiting stenosis, occlusion, or aneurysm. EXTRACRANIAL MRA: Carotid Stenosis: Right Common: No significant stenosis. Right Internal Plaque: No significant plaque formation. Right Internal Carotid Stenosis (% by NASCET Criteria): 0 Left Common: Findings are concerning for high-grade flow-limiting stenosis of the mid left common carotid artery, although this may be artifactual in etiology. Left Internal Carotid Plaque: No significant plaque formation. Left Internal Carotid Stenosis (% by NASCET Criteria): 0 Cervical Vertebral Arteries: Patency: No evidence of flow-limiting stenosis or occlusion involving the imaged portions of the vertebral arteries. Dominance: Left dominant. IMPRESSION: No acute intracranial abnormality or evidence of remote infarct. No substantial white matter disease for the patient's age. Findings are concerning for high-grade flow-limiting stenosis of the mid left common carotid artery, although this may be artifactual in etiology. Recommend CTA of the neck for further evaluation. Normal MRA of the brain. ACTIONABLE RESULT: FOLLOW-UP Acuity: Actionable Findings: Neurological System-CV Routing Code: NI_3 Recommendation: CTA HEAD/NECK WITH IV CONTRAST Time Frame: as soon as possible, when the patient's clinical state allows. COMMUNICATION: Results will be communicated with the ordering provider via [employer] staff message or phone message by [facility] [employer] [facility] within 2 business days of report finalization. --END OF FINDING-- Industrial Editor: DULCE Transcribe Date/Time: Feb 06 2024 10:35A Dictated by : ILANA LAWRENCE MD This examination was interpreted and the report reviewed and electronically signed by: ILANA LAWRENCE MD on Feb 06 2024 10:43AM EST [id number] ACTIONABLE Invalid Interpretation Code [facility] MRA Head vessels WO contrast on 02-06-2024 * * *Final Report* * * DATE OF EXAM: Feb 06 2024 10:00AM [facility] 0272 - MRA BRAIN WO IVCON / PROCEDURE REASON: Other symptoms and signs involving the nervous system * * * * Physician Interpretation * * * * EXAMINATION: MRA BRAIN WO IVCON, MRA CAROTID WO IVCON, MRI BRAIN WO IVCON CLINICAL HISTORY: Vertebrobasilar insufficiency TECHNIQUE: Routine noncontrast MRI protocol including diffusion and gradient echo images. Intracranial and extracranial 3D [id number]-am-[id number] MRA with post-processing performed at the modality and 2D multiplanar and 3D maximum intensity projections were created, reviewed and archived. MQ: MRBBWO_3 COMPARISON: None. RESULT: BRAIN: Acute Change: There is no evidence of restricted diffusion to suggest an acute infarct. Hemorrhage: Remote petechial hemorrhage is present within the left paramedian damion and the posterior right frontal lobe. Mass Lesion/ Mass Effect: No evidence of an intracranial mass or extra-axial fluid collection. No mass effect. Chronic Change: The white matter is within normal limits of signal intensity for age. Parenchyma: No significant volume loss for age. The brain parenchyma is otherwise within normal limits of signal intensity and morphology. Ventricles: Normal caliber and morphology. Skull Base: Hypothalamic and pituitary region are grossly normal. Craniocervical junction is normal. No significant marrow replacement process. Vasculature: Major intracranial arterial structures, and dural venous sinuses show typical flow void, suggesting patency by spin echo criteria. Other: Polypoid mucosal thickening and retention cysts are present in the left maxillary and bilateral ethmoid sinuses. The orbits and extracranial soft tissues are unremarkable. INTRACRANIAL MRA: Anterior circulation: No evidence of flow-limiting stenosis, occlusion, or aneurysm. Posterior circulation: No evidence of flow-limiting stenosis, occlusion, or aneurysm. EXTRACRANIAL MRA: Carotid Stenosis: Right Common: No significant stenosis. Right Internal Plaque: No significant plaque formation. Right Internal Carotid Stenosis (% by NASCET Criteria): 0 Left Common: Findings are concerning for high-grade flow-limiting stenosis of the mid left common carotid artery, although this may be artifactual in etiology. Left Internal Carotid Plaque: No significant plaque formation. Left Internal Carotid Stenosis (% by NASCET Criteria): 0 Cervical Vertebral Arteries: Patency: No evidence of flow-limiting stenosis or occlusion involving the imaged portions of the vertebral arteries. Dominance: Left dominant. DIVISION OF RADIOLOGY Provider, [facility] - 02/06/2024 * * *Final Report* * * DATE OF EXAM: Feb 06 2024 10:00AM [facility] 0272 - MRA BRAIN WO IVCON / PROCEDURE REASON: Other symptoms and signs involving the nervous system * * * * Physician Interpretation * * * * EXAMINATION: MRA BRAIN WO IVCON, MRA CAROTID WO IVCON, MRI BRAIN WO IVCON CLINICAL HISTORY: Vertebrobasilar insufficiency TECHNIQUE: Routine noncontrast MRI protocol including diffusion and gradient echo images. Intracranial and extracranial 3D ltmu-mc-turodd MRA with post-processing performed at the modality and 2D multiplanar and 3D maximum intensity projections were created, reviewed and archived. MQ: MRBBWO_3 COMPARISON: None. RESULT: BRAIN: Acute Change: There is no evidence of restricted diffusion to suggest an acute infarct. Hemorrhage: Remote petechial hemorrhage is present within the left paramedian damion and the posterior right frontal lobe. Mass Lesion/ Mass Effect: No evidence of an intracranial mass or extra-axial fluid collection. No mass effect. Chronic Change: The white matter is within normal limits of signal intensity for age. Parenchyma: No significant volume loss for age. The brain parenchyma is otherwise within normal limits of signal intensity and morphology. Ventricles: Normal caliber and morphology. Skull Base: Hypothalamic and pituitary region are grossly normal. Craniocervical junction is normal. No significant marrow replacement process. Vasculature: Major intracranial arterial structures, and dural venous sinuses show typical flow void, suggesting patency by spin echo criteria. Other: Polypoid mucosal thickening and retention cysts are present in the left maxillary and bilateral ethmoid sinuses. The orbits and extracranial soft tissues are unremarkable. INTRACRANIAL MRA: Anterior circulation: No evidence of flow-limiting stenosis, occlusion, or aneurysm. Posterior circulation: No evidence of flow-limiting stenosis, occlusion, or aneurysm. EXTRACRANIAL MRA: Carotid Stenosis: Right Common: No significant stenosis. Right Internal Plaque: No significant plaque formation. Right Internal Carotid Stenosis (% by NASCET Criteria): 0 Left Common: Findings are concerning for high-grade flow-limiting stenosis of the mid left common carotid artery, although this may be artifactual in etiology. Left Internal Carotid Plaque: No significant plaque formation. Left Internal Carotid Stenosis (% by NASCET Criteria): 0 Cervical Vertebral Arteries: Patency: No evidence of flow-limiting stenosis or occlusion involving the imaged portions of the vertebral arteries. Dominance: Left dominant. IMPRESSION IMPRESSION: No acute intracranial abnormality or evidence of remote infarct. No substantial white matter disease for the patient's age. Findings are concerning for high-grade flow-limiting stenosis of the mid left common carotid artery, although this may be artifactual in etiology. Recommend CTA of the neck for further evaluation. Normal MRA of the brain. ACTIONABLE RESULT: FOLLOW-UP Acuity: Actionable Findings: Neurological System-CV Routing Code: NI_3 Recommendation: CTA HEAD/NECK WITH IV CONTRAST Time Frame: as soon as possible, when the patient's clinical state allows. COMMUNICATION: Results will be communicated with the ordering provider via [employer] staff message or phone message by [employer] within 2 business days of report finalization. --END OF FINDING-- Industrial Editor: DULCE Transcribe Date/Time: Feb 06 2024 10:35A Dictated by : ILANA LAWRENCE MD This examination was interpreted and the report reviewed and electronically signed by: ILANA LAWRENCE MD on Feb 06 2024 10:43AM EST [facility] MRA Neck vessels WO contrast on 02-06-2024 * * *Final Report* * * DATE OF EXAM: Feb 06 2024 10:00AM [facility] 0275 - MRA CAROTID WO IVCON / PROCEDURE REASON: Other symptoms and signs involving the nervous system * * * * Physician Interpretation * * * * EXAMINATION: MRA BRAIN WO IVCON, MRA CAROTID WO IVCON, MRI BRAIN WO IVCON CLINICAL HISTORY: Vertebrobasilar insufficiency TECHNIQUE: Routine noncontrast MRI protocol including diffusion and gradient echo images. Intracranial and extracranial 3D [id number]-mf-[id number] MRA with post-processing performed at the modality and 2D multiplanar and 3D maximum intensity projections were created, reviewed and archived. MQ: MRBBWO_3 COMPARISON: None. RESULT: BRAIN: Acute Change: There is no evidence of restricted diffusion to suggest an acute infarct. Hemorrhage: Remote petechial hemorrhage is present within the left paramedian damion and the posterior right frontal lobe. Mass Lesion/ Mass Effect: No evidence of an intracranial mass or extra-axial fluid collection. No mass effect. Chronic Change: The white matter is within normal limits of signal intensity for age. Parenchyma: No significant volume loss for age. The brain parenchyma is otherwise within normal limits of signal intensity and morphology. Ventricles: Normal caliber and morphology. Skull Base: Hypothalamic and pituitary region are grossly normal. Craniocervical junction is normal. No significant marrow replacement process. Vasculature: Major intracranial arterial structures, and dural venous sinuses show typical flow void, suggesting patency by spin echo criteria. Other: Polypoid mucosal thickening and retention cysts are present in the left maxillary and bilateral ethmoid sinuses. The orbits and extracranial soft tissues are unremarkable. INTRACRANIAL MRA: Anterior circulation: No evidence of flow-limiting stenosis, occlusion, or aneurysm. Posterior circulation: No evidence of flow-limiting stenosis, occlusion, or aneurysm. EXTRACRANIAL MRA: Carotid Stenosis: Right Common: No significant stenosis. Right Internal Plaque: No significant plaque formation. Right Internal Carotid Stenosis (% by NASCET Criteria): 0 Left Common: Findings are concerning for high-grade flow-limiting stenosis of the mid left common carotid artery, although this may be artifactual in etiology. Left Internal Carotid Plaque: No significant plaque formation. Left Internal Carotid Stenosis (% by NASCET Criteria): 0 Cervical Vertebral Arteries: Patency: No evidence of flow-limiting stenosis or occlusion involving the imaged portions of the vertebral arteries. Dominance: Left dominant. DIVISION OF RADIOLOGY Provider, Shelley Manzano [facility] - 02/06/2024 * * *Final Report* * * DATE OF EXAM: Feb 06 2024 10:00AM [facility] 0275 - MRA CAROTID WO IVCON / PROCEDURE REASON: Other symptoms and signs involving the nervous system * * * * Physician Interpretation * * * * EXAMINATION: MRA BRAIN WO IVCON, MRA CAROTID WO IVCON, MRI BRAIN WO IVCON CLINICAL HISTORY: Vertebrobasilar insufficiency TECHNIQUE: Routine noncontrast MRI protocol including diffusion and gradient echo images. Intracranial and extracranial 3D dzyy-kn-[id number] MRA with post-processing performed at the modality and 2D multiplanar and 3D maximum intensity projections were created, reviewed and archived. MQ: MRBBWO_3 COMPARISON: None. RESULT: BRAIN: Acute Change: There is no evidence of restricted diffusion to suggest an acute infarct. Hemorrhage: Remote petechial hemorrhage is present within the left paramedian damion and the posterior right frontal lobe. Mass Lesion/ Mass Effect: No evidence of an intracranial mass or extra-axial fluid collection. No mass effect. Chronic Change: The white matter is within normal limits of signal intensity for age. Parenchyma: No significant volume loss for age. The brain parenchyma is otherwise within normal limits of signal intensity and morphology. Ventricles: Normal caliber and morphology. Skull Base: Hypothalamic and pituitary region are grossly normal. Craniocervical junction is normal. No significant marrow replacement process. Vasculature: Major intracranial arterial structures, and dural venous sinuses show typical flow void, suggesting patency by spin echo criteria. Other: Polypoid mucosal thickening and retention cysts are present in the left maxillary and bilateral ethmoid sinuses. The orbits and extracranial soft tissues are unremarkable. INTRACRANIAL MRA: Anterior circulation: No evidence of flow-limiting stenosis, occlusion, or aneurysm. Posterior circulation: No evidence of flow-limiting stenosis, occlusion, or aneurysm. EXTRACRANIAL MRA: Carotid Stenosis: Right Common: No significant stenosis. Right Internal Plaque: No significant plaque formation. Right Internal Carotid Stenosis (% by NASCET Criteria): 0 Left Common: Findings are concerning for high-grade flow-limiting stenosis of the mid left common carotid artery, although this may be artifactual in etiology. Left Internal Carotid Plaque: No significant plaque formation. Left Internal Carotid Stenosis (% by NASCET Criteria): 0 Cervical Vertebral Arteries: Patency: No evidence of flow-limiting stenosis or occlusion involving the imaged portions of the vertebral arteries. Dominance: Left dominant. IMPRESSION IMPRESSION: No acute intracranial abnormality or evidence of remote infarct. No substantial white matter disease for the patient's age. Findings are concerning for high-grade flow-limiting stenosis of the mid left common carotid artery, although this may be artifactual in etiology. Recommend CTA of the neck for further evaluation. Normal MRA of the brain. ACTIONABLE RESULT: FOLLOW-UP Acuity: Actionable Findings: Neurological System-CV Routing Code: NI_3 Recommendation: CTA HEAD/NECK WITH IV CONTRAST Time Frame: as soon as possible, when the patient's clinical state allows. COMMUNICATION: Results will be communicated with the ordering provider via [employer] staff message or phone message by [employer] within 2 business days of report finalization. --END OF FINDING-- Industrial Editor: DULCE Transcribe Date/Time: Feb 06 2024 10:35A Dictated by : ILANA LAWRENCE MD This examination was interpreted and the report reviewed and electronically signed by: ILANA LAWRENCE MD on Feb 06 2024 10:43AM [facility] MRI BRAIN WO IVCONon 16-2 024 MRI BRAIN WO IVCON * * *Final Report* * * DATE OF EXAM: Feb 06 2024 10:00AM [facility] 0294 - MRI BRAIN WO IVCON / PROCEDURE REASON: Other symptoms and signs involving the nervous system * * * * Physician Interpretation * * * * EXAMINATION: MRA BRAIN WO IVCON, MRA CAROTID WO IVCON, MRI BRAIN WO IVCON CLINICAL HISTORY: Vertebrobasilar insufficiency TECHNIQUE: Routine noncontrast MRI protocol including diffusion and gradient echo images. Intracranial and extracranial 3D iydz-cg-cdtdcg MRA with post-processing performed at the modality and 2D multiplanar and 3D maximum intensity projections were created, reviewed and archived. MQ: MRBBWO_3 COMPARISON: None. RESULT: BRAIN: Acute Change: There is no evidence of restricted diffusion to suggest an acute infarct. Hemorrhage: Remote petechial hemorrhage is present within the left paramedian damion and the posterior right frontal lobe. Mass Lesion/ Mass Effect: No evidence of an intracranial mass or extra-axial fluid collection. No mass effect. Chronic Change: The white matter is within normal limits of signal intensity for age. Parenchyma: No significant volume loss for age. The brain parenchyma is otherwise within normal limits of signal intensity and morphology. Ventricles: Normal caliber and morphology. Skull Base: Hypothalamic and pituitary region are grossly normal. Craniocervical junction is normal. No significant marrow replacement process. Vasculature: Major intracranial arterial structures, and dural venous sinuses show typical flow void, suggesting patency by spin echo criteria. Other: Polypoid mucosal thickening and retention cysts are present in the left maxillary and bilateral ethmoid sinuses. The orbits and extracranial soft tissues are unremarkable. INTRACRANIAL MRA: Anterior circulation: No evidence of flow-limiting stenosis, occlusion, or aneurysm. Posterior circulation: No evidence of flow-limiting stenosis, occlusion, or aneurysm. EXTRACRANIAL MRA: Carotid Stenosis: Right Common: No significant stenosis. Right Internal Plaque: No significant plaque formation. Right Internal Carotid Stenosis (% by NASCET Criteria): 0 Left Common: Findings are concerning for high-grade flow-limiting stenosis of the mid left common carotid artery, although this may be artifactual in etiology. Left Internal Carotid Plaque: No significant plaque formation. Left Internal Carotid Stenosis (% by NASCET Criteria): 0 Cervical Vertebral Arteries: Patency: No evidence of flow-limiting stenosis or occlusion involving the imaged portions of the vertebral arteries. Dominance: Left dominant. IMPRESSION: No acute intracranial abnormality or evidence of remote infarct. No substantial white matter disease for the patient's age. Findings are concerning for high-grade flow-limiting stenosis of the mid left common carotid artery, although this may be artifactual in etiology. Recommend CTA of the neck for further evaluation. Normal MRA of the brain. ACTIONABLE RESULT: FOLLOW-UP Acuity: Actionable Findings: Neurological System-CV Routing Code: NI_3 Recommendation: CTA HEAD/NECK WITH IV CONTRAST Time Frame: as soon as possible, when the patient's clinical state allows. COMMUNICATION: Results will be communicated with the ordering provider via [employer] staff message or phone message by [employer] within 2 business days of report finalization. --END OF FINDING-- Industrial Editor: DULCE Transcribe Date/Time: Feb 06 2024 10:35A Dictated by : ILANA LAWRENCE MD This examination was interpreted and the report reviewed and electronically signed by: ILANA LAWRENCE MD on Feb 06 2024 10:43AM EST [id number] ACTIONABLE Invalid Interpretation Code [facility] Panel InformationOrdered By: Cc Provider on 02-06-2024 Interpretation and review of laboratory results Abnormal [facility] Radiology Result ACTIONABLE Abnormal [facility] Comment on above: This report contains an incidental or actionable finding. This finding may be a new finding separate from the reason your provider ordered the imaging test or it may be an already known finding that needs additional or continued follow-up. Because of this incidental or actionable finding, you may need another test (imaging or a different type of test). Please contact your provider for the next steps. [facility] No Panel Informationon 02-05 IMPRESSION: No acute intracranial abnormality or evidence of remote infarct. No substantial white matter disease for the patient's age. Findings are concerning for high-grade flow-limiting stenosis of the mid left common carotid artery, although this may be artifactual in etiology. Recommend CTA of the neck for further evaluation. Normal MRA of the brain. ACTIONABLE RESULT: FOLLOW-UP Acuity: Actionable Findings: Neurological System-CV Routing Code: NI_3 Recommendation: CTA HEAD/NECK WITH IV CONTRAST Time Frame: as soon as possible, when the patient's clinical state allows. COMMUNICATION: Results will be communicated with the ordering provider via [employer] staff message or phone message by [employer] within 2 business days of report finalization. --END OF FINDING-- Industrial Editor: DULCE Transcribe Date/Time: Feb 06 2024 10:35A Dictated by : ILANA LAWRENCE MD This examination was interpreted and the report reviewed and electronically signed by: ILANA LAWRENCE MD on Feb 06 2024 10:43AM EST DIVISION OF RADIOLOGY Radiology Study observation (narrative) [facility] Baljit 01-08-2024 [facility] Telephone ([place]) -- NAZARIO HUTTON ([id number]) 1950 M Date Time Provider Department 01/08/24 PATRIA KHANNA JR During your visit today, we recorded the following information about you: Bhvaani Turk LPN 01/08/2024 4:13 PM Signed ----- Message from Patria Khanna Jr., MD sent at 01/08/2024 4:10 PM EDT ----- Pt with multiple abnormal labs including +GALLO with DNA Ab DA that could suggest autoimmune/inflammatory disorder, and thus, would like pt to see Rheum for evaluation. Also abnormal SPEP, and would like pt to see Heme. B6 also low and recommend pt start on B Vitamin supplement. MD Geovanna Priest Jessica, LPN 01/08/2024 4:21 PM Signed Attempted to call pt. Unable to reach him due to static on phone lines. Will try again. SUSHIL Madsen Jessica, LPN 01/12/2024 4:07 PM Signed TC to pt with no answer, left VM to return call. SUSHIL Madsen Lorinda, LPN 01/16/2024 6:02 PM Signed Phone call placed, no answer brief message to contact a nurse. VULCUN logon . SUSHIL Andrews Gillian, OCCA 01/17/2024 10:52 AM Signed Multiple attempts by phone and MC message to reach patient regarding abnormal lab results. Letter mailed to patients home address requesting return call to office. YASMEEN Childers Allergies As of Date: 01/08/2024 Noted Allergy Reaction HCTZ (HYDROCHLOROTHIAZIDE) 03/04/2008 16 - Unknown Comments: rash Date Reviewed: 01/01/2024 Reviewed by: Patria Khanna Jr., MD - Fully Assessed Reason for Visit: Results [95] Prescriptions as of 01/17/2024 - allopurinol (ZYLOPRIM) 100 mg tablet TAKE [...] as needed. 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 Elevated PSA [...] L5 [M54.17] 07/10/2023 Kidney lesion [N28.9] 08/21/2023 Letter Text Encounter Status:Closed by BHAVANI TURK on 01/17/24 Normal [facility] CBC W Auto Differential pane l (Bld)on 10-17-2023 Basophils (Bld) [#/Vol] 0.05 10*3/uL <0.11 k/uL [facility] Basophils/100 WBC (Bld) 0.7 % [facility] Differential cell count method Nom (Bld) Auto [facility] Eosinophils (Bld) [#/Vol] 0.62 10*3/uL High <0.46 k/uL [facility] Eosinophils/100 WBC (Bld) 8.2 % [facility] Erythrocyte distribution width (RBC) [Ratio] 13.3 % 11.5 - 15.0 % [facility] Hematocrit (Bld) [Volume fraction] 42.4 % 39.0 - 51.0 % [facility] Hemoglobin (Bld) [Mass/Vol] 14.1 g/dL 13.0 - 17.0 g/dL [facility] Immature granulocytes (Bld) [#/Vol] <0.10 k/uL [facility] Immature granulocytes/100 WBC (Bld) 0.3 % [facility] Lymphocytes (Bld) [#/Vol] 0.83 10*3/uL Low 1.00 - 4.00 k/uL [facility] Lymphocytes/100 WBC (Bld) 11.0 % [facility] MCH (RBC) [Entitic mass] 34.3 pg High 26.0 - 34.0 pg [facility] MCHC (RBC) [Mass/Vol] 33.3 g/dL 30.5 - 36.0 g/dL [facility] MCV (RBC) [Entitic vol] 103.2 fL High 80.0 - 100.0 fL [facility] Monocytes (Bld) [#/Vol] 1.00 10*3/uL High <0.87 k/uL [facility] Monocytes/100 WBC (Bld) 13.2 % [facility] Neutrophils (Bld) [#/Vol] 5.05 10*3/uL 1.45 - 7.50 k/uL [facility] Neutrophils/100 WBC (Bld) 66.6 % [facility] Nucleated RBC (Bld) [#/Vol] <0.01 k/uL [facility] Nucleated RBC/100 WBC (Bld) [Ratio] 0.0 /100 WBC [facility] Platelet mean volume (Bld) [Entitic vol] 10.6 fL 9.0 - 12.7 fL [facility] Platelets (Bld) [#/Vol] 224 10*3/uL 150 - 400 k/uL [facility] RBC (Bld) [#/Vol] 4.11 10*6/uL Low 4.20 - 6.0 0 m/uL [facility] WBC (Bld) [#/Vol] 7.57 10*3/uL 3.70 - 11. 00 k/uL [facility] Urinalysis complete panel (U )on 10-17-2023 Bacteria LM.HPF (Urine sed) [#/Area] Negative Negative /HPF [facility] Bilirubin Ql (U) Negative Negative [facility] Clarity (Unsp spec) Clear Clear [facility] Color (U) Yellow Yellow [facility] Epithelial cells LM.HPF (Urine sed) [#/Area] None Seen [facility] Glucose Test strip (U) [Mass/Vol] Negative Negative [facility] Hemoglobin Ql (U) Negative Negative [facility] Hyaline casts (Urine sed) [#/Area] 0 /[LPF] 0 /LPF [facility] Ketones Ql (U) Negative Negative [facility] Leukocyte esterase Test strip Ql (U) 1+ Abnormal Negative [facility] Nitrite Ql (U) Negative Negative [facility] pH (U) 6.0 [pH] <8.5 [facility] Protein (U) [Mass/Vol] Negative Negative [facility] RBC LM.HPF (Urine sed) [#/Area] 0-2 /HPF 0-2 /HPF [facility] Specific gravity (U) [Rel density] 1.007 1.005 - 1.030 [facility] Urobilinogen Ql (U) 0.2 EU/dL 0.2-1.0 EU/dL [facility] WBC LM.HPF (Urine sed) [#/Area] 0-5 /HPF 0-5 /HPF [facility] Absolute lymphocyte countOrd ered By: Estefany Thrasher on 09-05-2023 Lymphocytes Auto (Unsp spec) [#/Vol] 0.60 10*3/uL 0.83-4.51 [facility] Automated lymphocyte count a s percentage of total leukocytesOrdered By: Estefany Thrasher on 09-05-2023 Lymphocytes/100 WBC Auto (Unsp spec) 8.2 % 19-41 [facility] Basophil percentageOrdered B y: Estefany Thrasher on 09-05-2023 Basophils/100 WBC (Bld) 0.5 % 0-1 [facility] Chloride [Moles/Vol] 110 mmol/L 98-[address] [facility] Eosinophils/100 WBC (Bld) 7.1 % 0-5 [facility] Glucose [Mass/Vol] 97 mg/dL 74-106 [facility] Hemoglobin (Bld) [Mass/Vol] 14.3 g/dL 13.0-16.5 [facility] Monocytes/100 WBC (Bld) 12.3 % 0-10 [facility] Neutrophils (Bld) [#/Vol] 5.2 10*3/uL 2.0-7.7 [facility] Neutrophils/100 WBC (Bld) 71.5 % 47-70 [facility] Potassium [Moles/Vol] 4.6 mmol/L 3.5-5.1 [facility] Sodium [Moles/Vol] 140 mmol/L 136-145 [facility] WBC (Bld) [#/Vol] 7.3 10*3/uL 4.4-11.0 [facility] Determination of erythrocyte mean corpuscular volume (MCV)Ordered By: Estefany Thrasher on 09-05-2023 MCV (RBC) [Entitic vol] 103.5 fL 80-94 [facility] Erythrocyte distribution wid th ratioOrdered By: Estefany Thrasher on 09-05-2023 Erythrocyte distribution width (RBC) [Ratio] 12.9 % 11.6-14.6 [facility] Erythrocyte distribution wid th standard deviationOrdered By: Estefany Thrasher on 09-05-2023 Erythrocyte distribution width (RBC) [Entitic vol] 48.9 fL 35.1-43.9 [facility] Hematocrit Auto (Bld) [Volum e fraction]Ordered By: Estefany Thrasher on 09-05-2023 Hematocrit (Bld) [Volume fraction] 43.8 % 40-54 [facility] Immature granulocytes/100 WB C Auto (Bld)Ordered By: Estefany Thrasher on 09-05-2023 Immature granulocytes/100 WBC (Bld) 0.400 % 0.0-0.9 [facility] Comment on above: IG% - Immature Granu locytes (promyelocytes, myelocytes and metamyelocytes) > 1% indicates that a LEFT SHIFT is Present. Laboratory - Chemistry and C hemistry - challengeOrdered By: Estefany Thrasher on 09-05-2023 CO2 [Moles/Vol] 26.0 mmol/L 21.0-32.0 [facility] Natriuretic peptide B (Bld) [Mass/Vol] 140.8 pg/mL 0-100 [facility] Urea nitrogen/Creatinine [Mass ratio] 13.7 mg/mg 10-20 [facility] Laboratory - Hematology and Cell countsOrdered By: Estefany Thrasher on 09-05-2023 MCH (RBC) [Entitic mass] 33.8 pg 27.0-32.0 [facility] MCHC (RBC) [Mass/Vol] 32.6 g/dL 32-36 [facility] Nucleated RBC/100 WBC (Bld) [Ratio] 0 % 0-5 [facility] Platelet mean volume (Bld) [Entitic vol] 10.5 fL 6.2-12.0 [facility] Platelets (Bld) [#/Vol] 214 10*3/uL 150-450 [facility] No Panel InformationOrdered By: Estefany Thrasher on 09-05-2023 Estimated GFR (MDRD) Amer 110 mL/min >60 [facility] Comment on above: GFR Calc Estimated GFR (MDRD) Non-Af Amer 91 mL/min >60 [facility] Comment on above: Non- GFR Calc RBC Auto (Bld) [#/Vol]Ordere d By: Estefany Thrasher on 09-05-2023 RBC (Bld) [#/Vol] 4.23 10*6/uL 4.6-6.2 [place] Serum or plasma calcium reid urement (mass/volume)Ordered By: Estefany Thrasher on 09-05-2023 Calcium [Mass/Vol] 9.7 mg/dL 8.5-10.1 [facility] Serum or plasma creatinine m easurement (mass/volume)Ordered By: Estefany Thrasher on 09-05-2023 Creatinine [Mass/Vol] 0.87 mg/dL 0.70-1.30 [facility] Comment on above: The validity of the calculated GFR & GFRAA in patients over 70 years has not been determined. Clinical correlation is essential. Serum or plasma urea nitroge n measurement (mass/volume)Ordered By: Estefany Thrasher on 09-05-2023 Urea nitrogen [Mass/Vol] 12 mg/dL 02-07 [facility] Thin prep Papanicolaou smear with manual screeningOrdered By: Estefany Thrasher on 09-05-2023 Thin prep Papanicolaou smear with manual screening 4 5-15 [facility] CNPNon 08-10-2023 CNPN Telephone ([facility]) -- NAZARIO HUTTON ( ) 1950 Date Time Provider Department 08/10/23 VALERIANO BEASLEY [facility] During your visit today, we recorded the following information about you: Valeriano Beasley MD 08/10/2023 11:14 AM Signed Let patient know his lumbar MRI shows significant changes contributing to his pain. I want to send him to the New neurologist at [facility] Dr. José Miguel Valverde. Order placed. The scan also showed several suspected cysts in the kidnies. Want to further eval with US. Order placed. Lupillo Moura LPN 08/10/2023 11:47 AM Addendum Left message for pt to contact office for results and instructions. (Consult and all info has been faxed to Dr Valverde's office and asked that they contact pt to schedule appointment.)SUSHIL Crawley Krystle, RN 08/10/2023 3:52 PM Signed Patient returns call and results and provider message reviewed. Patient verbalizes understanding. Transferred to schedule US of kidney/bladder. Pineda Styles RN Allergies As of Date: 08/10/2023 Noted Allergy Reaction environmental [Other] 03/04/2008 16 - Unknown HCTZ (HYDROCHLOROTHIAZIDE) 03/04/2008 16 - Unknown Comments: rash Date Reviewed: 07/10/2023 Reviewed by: Valeriano Beasley MD - Fully Assessed Reason for Visit: Results [95] Primary Visit Diagnosis:Lumbosacral radiculopathy at L5 [M54.17] Other Visit Diagnoses:Abnormal MRI, lumbar spine [R93.7] Kidney lesion [N28.9] Order(s):CONSULT TO NEUROSURGERY [[id number]] Order #: [id number]: 1 FUTURE US KIDNEY/BLADDER [[id number]] Order #: [id number] FUTURE Prescriptions as of 08/10/2023 - ezetimibe (ZETIA) 10 mg tablet Take [...] as needed. Problem List As Of Date 08/10/2023 Noted Resolved Essential hypertension, benign [I10] 03/04/2008 [...] disorder [N42.9] 03/15/2021 Medication management [Z79.899] 03/15/2021 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 [L28.1] 03/15/2021 Elevated PSA [...] 05/18/2023 Lumbosacral radiculopathy at L5 [M54.17] 07/10/2023 Encounter Status:Closed by PINEDA STYLES on 08/10/23 Normal [facility] FOLATE SERUMon 04-21-2023 Folate [Mass/Vol] 18.2 ng/mL >4.7 ng/mL [facility] T4 FREE/FREE THYROXon 2022 Free T4 [Mass/Vol] 1.0 ng/dL 0.9 - 1.7 ng/dL [facility] TSH BLDon 04-21-2023 TSH Qn 3.260 m[IU]/L 0.270 - 4.200 mIU/L [facility] VITAMIN B12 BLOODon 04-21-20 Cobalamin (Vitamin B12) [Mass/Vol] 244 pg/mL 232 - 1,245 pg/mL [facility] CBC W/DIFF/PLT (EXTERNAL LAB RALF)on 12-13-2022 BASO ABSOLUTE [facility] Basophils/100 WBC (Bld) 0.9 % [facility] EOS ABSOLUTE [facility] Eosinophils/100 WBC (Bld) 7.6 % [facility] Erythrocyte distribution width (RBC) [Ratio] 15.4 % 12.3 - 15.4 % [facility] Hematocrit (Bld) [Volume fraction] 46.7 % 37.5 - 51.0 % [facility] Hemoglobin (Bld) [Mass/Vol] 15 g/dL 12.6 - 17.7 g/dL [facility] Immature Gran % [facility] IMMATURE GRANS ABSOLUTE [facility] Lymphocytes (Bld) [#/Vol] 0.49 10*3/uL Abnormal 0.7 - 3.1 k/uL [facility] Lymphocytes/100 WBC (Bld) 7.3 % [facility] MCH 31.5 Pg 26.6 - 33 Pg [facility] MCHC (RBC) [Mass/Vol] 32.1 g/dL 31.5 - 35.7 g/dL [facility] MCV (RBC) [Entitic vol] 98.1 fL Abnormal 79 - 97 fL [facility] MONOCYTES ABSOLUTE [facility] Monocytes/100 WBC (Bld) 11.4 % [facility] NEUTROPHILS ABSOLUTE 4.9 k/uL 1.4 - 7 .0 k/uL [facility] Neutrophils/100 WBC (Bld) 72.5 % [facility] Platelets (Bld) [#/Vol] 205 10*3/uL 150 - 379 k/uL [facility] RBC (Bld) [#/Vol] 4.76 10*6/uL 4.14 - 5.8 0 M/uL [facility] WBC (Bld) [#/Vol] 6.7 10*3/uL 3.4 - 10.8 K/uL [facility] FERRITIN BLDon 12-13-2022 Ferritin [Mass/Vol] 64 ng/mL 26 - 388 [facility] IRON PANEL (OUTSIDE)on 12-13 Iron [Mass/Vol] 133 ug/dL 65 - 175 [facility] TIBC 40.1 15 - 55 [facility] Absolute lymphocyte countOrd ered By: Xochilt Casanova on 12-09-2022 Lymphocytes Auto (Unsp spec) [#/Vol] 0.49 10*3/uL 0.83-4.51 [facility] Basophil percentageOrdered B y: Xochilt Casanova on 12-09-2022 Basophils/100 WBC (Bld) 0.9 % 0-1 [facility] Eosinophils/100 WBC (Bld) 7.6 % 0-5 [facility] Neutrophils (Bld) [#/Vol] 4.9 10*3/uL 2.0-7.7 [facility] Neutrophils/100 WBC (Bld) 72.5 % 47-70 [facility] WBC (Bld) [#/Vol] 6.7 10*3/uL 4.4-11.0 [facility] Blood erythrocytes count (nu mber/volume)Ordered By: Xochilt Casanova on 12-09-2022 RBC (Bld) [#/Vol] 4.76 10*6/uL 4.6-6.2 [place] Blood hemoglobin measurement (mass/volume)Ordered By: Xochilt Casanova on 12-09-2022 Hemoglobin (Bld) [Mass/Vol] 15.0 g/dL 13.0-16.5 [facility] Blood lymphocytes/100 leukoc ytesOrdered By: Xochilt Casanova on 12-09-2022 Lymphocytes/100 WBC (Bld) 7.3 % 19-41 [facility] Blood monocytes/100 leukocyt esOrdered By: Xochilt Casanova on 12-09-2022 Monocytes/100 WBC (Bld) 11.4 % 0-10 [facility] Blood platelet mean volumeOr dered By: Xochilt Casanova on 12-09-2022 Platelet mean volume (Bld) [Entitic vol] 9.5 fL 6.2-12.0 [facility] Determination of erythrocyte mean corpuscular volume (MCV)Ordered By: Xochilt Casanova on 12-09-2022 MCV (RBC) [Entitic vol] 98.1 fL 80-94 [facility] Hematocrit Auto (Bld) [Volum e fraction]Ordered By: Xochilt Casanova on 12-09-2022 Hematocrit (Bld) [Volume fraction] 46.7 % 40-54 [facility] Iron measurement (mass/mass) Ordered By: Xochilt Casanova on 12-09-2022 Iron (Unsp spec) [Mass/Mass] 133 ug/dL 65-175 [facility] Laboratory - Hematology and Cell countsOrdered By: Xochilt Casanova on 12-09-2022 Erythrocyte distribution width (RBC) [Entitic vol] 55.2 fL 35.1-43.9 [facility] Erythrocyte distribution width (RBC) [Ratio] 15.4 % 11.6-14.6 [facility] Immature granulocytes/100 WBC (Bld) 0.300 % 0.0-0.9 [facility] Comment on above: IG% - Immature Granu locytes (promyelocytes, myelocytes and metamyelocytes) > 1% indicates that a LEFT SHIFT is Present. MCH (RBC) [Entitic mass] 31.5 pg 27.0-32.0 [facility] Nucleated RBC/100 WBC (Bld) [Ratio] 0 % 0-5 [facility] MCHC Auto (RBC) [Mass/Vol]Or dered By: Xochilt Casanova on 12-09-2022 MCHC (RBC) [Mass/Vol] 32.1 g/dL 32-36 [facility] No Panel InformationOrdered By: Xochilt Casanova on 12-09-2022 Total Iron Binding Capacity 332 ug/dL 250-450 [facility] Platelets bldOrdered By: Andria Casanova on 12-09-2022 Platelets (Bld) [#/Vol] 205 10*3/uL 150-450 [facility] Serum or plasma ferritin steve surement (mass/volume)Ordered By: Xochilt Casanova on 12-09-2022 Ferritin [Mass/Vol] 64 ng/mL 26-388 [place] Serum or plasma iron saturat ion measurement (mass fraction)Ordered By: Xochilt Casanova on 12-09-2022 Iron saturation [Mass fraction] 40.1 % 15.0-55.0 [facility] 09-15-2022 CNPN Telephone ([facility]) -- NAZARIO HUTTON ( ) 1950 M Date Time Provider Department 09/15/22 VALERIANO BEASLEY During your visit today, we recorded the following information about you: Valeriano Beasley MD 09/15/2022 11:54 AM Signed Let patient know his Iron is still [...] walking. Patient needs labs faxed to his associate director of development, Dr. Franklin Francois at [facility] phone # [phone] Ganesh White MA 09/15/2022 2:34 PM Signed Left message for patient to contact office. Ganesh White MA Faxed information to cardio. LINA Gandara LPN 09/16/2022 2:37 PM Signed Patient returned call and went over results, notes from Dr Beasley with understanding. Aware lab results were faxed to [facility] office. Allergies As of Date: 09/15/2022 Noted Allergy Reaction environmental [Other] 03/04/2008 16 - Unknown HCTZ (HYDROCHLOROTHIAZIDE) 03/04/2008 16 - Unknown Comments: rash Date Reviewed: 09/15/2022 Reviewed by: Valeriano Beasley MD - Fully Assessed Reason for Visit: Results [95] Prescriptions as of 09/16/2022 - ferrous sulfate 325 mg (65 mg iron) EC tablet Take 325 mg by mouth. - pantoprazole DR (PROTONIX) 40 mg tablet Take 40 mg by mouth twice daily. Take twice daily - sertraline (ZOLOFT) 50 mg tablet 1/2 a tablet by mouth once a day for 14 days then go to one tablet daily - clopidogrel (PLAVIX) 75 mg tablet Take 1 tablet by mouth once daily. - multivitamin tablet Take 1 tablet by mouth once daily. - nitroglycerin sublingual (NITROQUICK) 0.4 mg SL tablet Dissolve 1 tablet under the tongue every 5 minutes as needed for chest pain. - ezetimibe (ZETIA) 10 mg tablet Take 1 tablet by mouth once daily. - allopurinol (ZYLOPRIM) 100 mg tablet TAKE 1 TABLET BY MOUTH ONCE DAILY. FOR GOUT. - atorvastatin (LIPITOR) 80 mg tablet TAKE 1 TABLET BY MOUTH ONCE DAILY. FOR CHOLESTEROL. - clopidogrel (PLAVIX) 75 mg tablet Take 1 tablet by mouth once daily. - atenolol (TENORMIN) 50 mg tablet Take 1 tablet by mouth once daily. - aspirin, enteric coated (ASPIRIN, ENTERIC COATED) 81 mg EC tablet Take 81 mg by mouth once daily. - docosahexaenoic acid/epa (FISH OIL ORAL) Take [...] as needed. 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*12/06/[address] elevation myocardial infarction (*12/06/[address] [Z78.9] 04/18/2022 Advance directive discussed with patient [Z71.8*04/18/2022 NSTEMI (non-ST elevated myocardial infarction) *09/05/2022 Diverticulosis [K57.90] 09/05/2022 Alcohol abuse [F10.10] 09/14/2022 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.*09/14/2022 Situational depression [F43.21] 09/14/2022 Encounter Status:Closed by TEODORO DYE LPN on 09/16/22 Normal [facility] Comprehensive metabolic 2000 panelon 09-15-2022 Albumin [Mass/Vol] 3.4 g/dL Low 3.9 - 4.9 g/dL [facility] ALP [Catalytic activity/Vol] 104 U/L 38 - 113 U/L [facility] ALT [Catalytic activity/Vol] 11 U/L 10 - 54 U/L [facility] Anion gap [Moles/Vol] 7 mmol/L Low 9 - 18 mmol/L [facility] AST [Catalytic activity/Vol] 15 U/L 14 - 40 U/L [facility] Bilirubin [Mass/Vol] 0.4 mg/dL 0.2 - 1 .3 mg/dL [facility] Calcium [Mass/Vol] 8.6 mg/dL 8.5 - 10. 2 mg/dL [facility] Chloride [Moles/Vol] 107 mmol/L High 97 - 10 5 mmol/L [facility] CO2 [Moles/Vol] 25 mmol/L 22 - 30 mmol/L [facility] Creatinine [Mass/Vol] 0.81 mg/dL 0.73 - 1.22 mg/dL [facility] Estimated Glomerular Filtration Rate 94 mL/min/1.73m >=60 mL/min/1.73m [facility] Glucose [Mass/Vol] 98 mg/dL 74 - 99 mg/dL [facility] Potassium [Moles/Vol] 4.2 mmol/L 3.7 - 5.1 mmol/L [facility] Protein [Mass/Vol] 6.3 g/dL 6.3 - 8.0 g/dL [facility] Sodium [Moles/Vol] 139 mmol/L 136 - 144 mmol/L [facility] Urea nitrogen [Mass/Vol] 6 mg/dL Low 9 - 24 mg/dL [facility] Iron and Iron binding capaci ty panelon 09-15-2022 Iron [Mass/Vol] 23 ug/dL Low 41 - 186 ug/dL [facility] Iron binding capacity [Mass/Vol] 216 ug/dL Low 232 - 386 ug/dL [facility] Iron/TIBC [Molar ratio] 10.6 % Low 15.0 - 57.0 % [facility] LIPID PANEL, NONFASTINGon Cholesterol [Mass/Vol] 117 mg/dL <200 mg/dL [facility] HDL Cholesterol, Nonfasting 35 mg/dL Low >39 mg/dL [facility] LDL Cholesterol, Nonfasting 71 mg/dL <100 mg/dL [facility] LDL/HDL Ratio, Nonfasting 2.03 mg/dL <2.54 mg/dL [facility] Non HDL Cholesterol, Nonfasting 82 mg/dL <130 mg/dL [facility] Total Chol/HDL Ratio, Nonfasting 3.34 mg/dL <5.10 mg/dL [facility] Triglycerides, Nonfasting 55 mg/dL <150 mg/dL [facility] VLDL Cholesterol, Nonfasting 11 mg/dL <30 mg/dL [facility] CBC W Auto Differential pane l (Bld)on 09-14-2022 Basophils (Bld) [#/Vol] 0.04 10*3/uL <0.11 k/uL [facility] Basophils/100 WBC (Bld) 0.3 % [facility] Differential cell count method Nom (Bld) Auto [facility] Eosinophils (Bld) [#/Vol] 0.41 10*3/uL <0.46 k/uL [facility] Eosinophils/100 WBC (Bld) 3.6 % [facility] Erythrocyte distribution width (RBC) [Ratio] 16.9 % High 11.5 - 15.0 % [facility] Hematocrit (Bld) [Volume fraction] 29.3 % Low 39.0 - 51.0 % [facility] Hemoglobin (Bld) [Mass/Vol] 9.2 g/dL Low 13.0 - 17.0 g/dL [facility] Immature granulocytes (Bld) [#/Vol] 0.05 10*3/uL <0.10 k/uL [facility] Immature granulocytes/100 WBC (Bld) 0.4 % [facility] Lymphocytes (Bld) [#/Vol] 0.83 10*3/uL Low 1.00 - 4.00 k/uL [facility] Lymphocytes/100 WBC (Bld) 7.2 % [facility] MCH (RBC) [Entitic mass] 33.0 pg 26.0 - 34.0 pg [facility] MCHC (RBC) [Mass/Vol] 31.4 g/dL 30.5 - 36.0 g/dL [facility] MCV (RBC) [Entitic vol] 105.0 fL High 80.0 - 100.0 fL [facility] Monocytes (Bld) [#/Vol] 0.91 10*3/uL High <0.87 k/uL [facility] Monocytes/100 WBC (Bld) 7.9 % [facility] Neutrophils (Bld) [#/Vol] 9.27 10*3/uL High 1.45 - 7.50 k/uL [facility] Neutrophils/100 WBC (Bld) 80.6 % [facility] Nucleated RBC (Bld) [#/Vol] <0.01 k/uL [facility] Nucleated RBC/100 WBC (Bld) [Ratio] 0.0 /100 WBC [facility] Platelet mean volume (Bld) [Entitic vol] 10.8 fL 9.0 - 12.7 fL [facility] Platelets (Bld) [#/Vol] 323 10*3/uL 150 - 400 k/uL [facility] RBC (Bld) [#/Vol] 2.79 10*6/uL Low 4.20 - 6.0 0 m/uL [facility] WBC (Bld) [#/Vol] 11.51 10*3/uL High 3.70 - 11 .00 k/uL [facility] Absolute lymphocyte countOrd ered By: Dr. Crespo on 09-09-2022 Lymphocytes Auto (Unsp spec) [#/Vol] 0.55 10*3/uL 0.83-4.51 [facility] Basophil percentageOrdered B y: Dr. Crespo on 09-09-2022 Basophils/100 WBC (Bld) 0.5 % 0-1 [facility] Eosinophils/100 WBC (Bld) 8.0 % 0-5 [facility] Neutrophils (Bld) [#/Vol] 3.7 10*3/uL 2.0-7.7 [facility] Neutrophils/100 WBC (Bld) 67.3 % 47-70 [facility] WBC (Bld) [#/Vol] 5.5 10*3/uL 4.4-11.0 [facility] Blood erythrocytes count (nu mber/volume)Ordered By: Dr. Crespo on 09-09-2022 RBC (Bld) [#/Vol] 2.34 10*6/uL 4.6-6.2 [place] Blood hemoglobin measurement (mass/volume)Ordered By: Dr. Crespo on 09-09-2022 Hemoglobin (Bld) [Mass/Vol] 7.6 g/dL 13.0-16.5 [facility] Blood lymphocytes/100 leukoc ytesOrdered By: Dr. Crespo on 09-09-2022 Lymphocytes/100 WBC (Bld) 10.0 % 19-41 [facility] Blood manual differential co mment interpretation (narrative result)Ordered By: Dr. Crespo on 09-09-2022 Manual differential comment Kamaljit (Bld) [Interp] SCANNED [facility] Comment on above: LYMPHOPENIA NOTED Blood monocytes/100 leukocyt esOrdered By: Dr. Crespo on 09-09-2022 Monocytes/100 WBC (Bld) 13.8 % 0-10 [facility] Blood platelet mean volumeOr dered By: Dr. Crespo on 09-09-2022 Platelet mean volume (Bld) [Entitic vol] 9.9 fL 6.2-12.0 [facility] Determination of erythrocyte mean corpuscular volume (MCV)Ordered By: Dr. Crespo on 09-09-2022 MCV (RBC) [Entitic vol] 104.3 fL 80-94 [facility] Hematocrit Auto (Bld) [Volum e fraction]Ordered By: Dr. Crespo on 09-09-2022 Hematocrit (Bld) [Volume fraction] 24.4 % 40-54 [facility] Laboratory - Hematology and Cell countsOrdered By: Dr. Crespo on 09-09-2022 Anisocytosis Ql (Bld) 1+ [facility] Erythrocyte distribution width (RBC) [Entitic vol] 67.8 fL 35.1-43.9 [facility] Erythrocyte distribution width (RBC) [Ratio] 17.7 % 11.6-14.6 [facility] Immature granulocytes/100 WBC (Bld) 0.400 % 0.0-0.9 [facility] Comment on above: IG% - Immature Granu locytes (promyelocytes, myelocytes and metamyelocytes) > 1% indicates that a LEFT SHIFT is Present. MCH (RBC) [Entitic mass] 32.5 pg 27.0-32.0 [facility] Nucleated RBC/100 WBC (Bld) [Ratio] 0 % 0-5 [facility] MCHC Auto (RBC) [Mass/Vol]Or dered By: Dr. Crespo on 09-09-2022 MCHC (RBC) [Mass/Vol] 31.1 g/dL 32-36 [facility] Macrocytes detectionOrdered By: Dr. Crespo on 09-09-2022 Macrocytes Ql (Bld) 1+ [place] No Panel InformationOrdered By: Dr. Hagen on 09-09-2022 D-Dimer Quantitative (PE/DVT) 3.21 FEU/ug/m 0.27-0.49 [facility] Comment on above: D-Dimer ELEVATED (>0 .49): Additional studies and clinicalassessments are indicated to conclude diagnosis of:Deep Vein Thrombosis (DVT) or Pulmonary Embolism (PE)CRITICAL VALUE VERIFIED. CALLED TO [id number] Leslie Proctor.RESULTS READ BACK BY SAME . Platelets bldOrdered By: Dr. Crespo on 09-09-2022 Platelets (Bld) [#/Vol] 212 10*3/uL 150-450 [facility] Basophil percentageOrdered B y: Dr. Crespo on 09-08-2022 Chloride [Moles/Vol] 116 mmol/L 98-107 [facility] Glucose [Mass/Vol] 103 mg/dL 74-106 [facility] Comment on above: Fasting Glucose resu lt from 100 to 125 mg/dL suggests IMPAIRED HOMEOSTASIS per A.D.A. criteria. Potassium [Moles/Vol] 3.7 mmol/L 3.5-5.1 [facility] Sodium [Moles/Vol] 145 mmol/L 136-145 [facility] Laboratory - Chemistry and C hemistry - challengeOrdered By: Dr. Crespo on 09-08-2022 CO2 [Moles/Vol] 26.0 mmol/L 21.0-32.0 [facility] Urea nitrogen/Creatinine [Mass ratio] 3.1 mg/mg 10-20 [facility] No Panel InformationOrdered By: Dr. Crespo on 09-08-2022 Estimated Creatinine Clearance Calc 69.96 ml/min [facility] Estimated GFR (MDRD) Amer 155 mL/min >60 [facility] Comment on above: GFR Calc Estimated GFR (MDRD) Non-Af Amer 128 mL/min >60 [facility] Comment on above: Non- GFR Calc Serum or plasma calcium reid urement (mass/volume)Ordered By: Dr. Crespo on 09-08-2022 Calcium [Mass/Vol] 8.2 mg/dL 8.5-10.1 [facility] Serum or plasma creatinine m easurement (mass/volume)Ordered By: Dr. Crespo on 09-08-2022 Creatinine [Mass/Vol] 0.65 mg/dL 0.70-1.30 [facility] Comment on above: The validity of the calculated GFR & GFRAA in patients over 70 years has not been determined. Clinical correlation is essential. Serum or plasma urea nitroge n measurement (mass/volume)Ordered By: Dr. Crespo on 09-08-2022 Urea nitrogen [Mass/Vol] 2 mg/dL 7-18 [facility] Thin prep Papanicolaou smear with manual screeningOrdered By: Dr. Crespo on 09-08-2022 Thin prep Papanicolaou smear with manual screening 3 5-15 [facility] Thin prep Papanicolaou smear with manual screeningOrdered By: Dr. Crespo on 09-06-2022 Thin prep Papanicolaou smear with manual screening 1+ [facility] Laboratory - CoagulationOrde red By: Dr. Corbin on 09-04-2022 aPTT Coag (Bld) [Time] 40.0 s 24.1-36.2 [facility] Basophil percentageOrdered B y: Dr. Ramos on 09-03-2022 Bilirubin [Mass/Vol] 0.70 mg/dL 0.20-1.00 [facility] Comment on above: For patients on eltr ombopag therapy, use of Dimension [place] TBIL is not recommended. Protein [Mass/Vol] 5.6 g/dL 6.4-8.2 [facility] EP PanelOrdered By: Dr. Tiffanie paez on 09-03-2022 Gastrointestinal pathogens panel DEMARIO+probe (Stl) [facility] Laboratory - Chemistry and C hemistry - challengeOrdered By: Dr. Ramos on 09-03-2022 ALP [Catalytic activity/Vol] 72 U/L 45-117 [facility] ALT [Catalytic activity/Vol] 16 U/L 16-61 [facility] Globulin (S) [Mass/Vol] 3.0 g/dL 2.2-4.2 [facility] No Panel InformationOrdered By: Dr. Corbin on 09-03-2022 Troponin I High Sensitivity 3730 pg/mL 3.0-78.0 [facility] Comment on above: Critical Result(s) C alled at: 21:16:59 09/03/2022 by: Nadine Platt. Results read back by same. Please Note: New Test Units and Gender Specific Reference Ranges. For more information see Policy Stat Procedure [place] High Sensitivity Troponin (TNIH) and attachments. Serum or plasma albumin reid urement (mass/volume)Ordered By: Dr. Ramos on 09-03-2022 Albumin [Mass/Vol] 2.6 g/dL 3.2-5.0 [facility] Serum or plasma albumin/glob ulin mass ratioOrdered By: Dr. Ramos on 09-03-2022 Albumin/Globulin [Mass ratio] 0.9 {ratio} 0.9-2.4 [facility] Stool lactoferrin detection by immunoassayOrdered By: Dr. Holguin on 09-03-2022 Lactoferrin IA Ql (Stl) [facility] Thin prep Papanicolaou smear with manual screeningOrdered By: Dr. Ramos on 09-03-2022 Thin prep Papanicolaou smear with manual screening 20 U/L 15-37 [facility] Whole blood hemoglobin A1c/t otal hemoglobin ratio (mass fraction)Ordered By: Dr. Ramos on 09-03-2022 HbA1c (Bld) [Mass fraction] % 3.8-5.6 [facility] Comment on above: Normal < 5.7 % Predi abetic 5.7 - 6.4 % Diabetic >or= 6.5 % Please note range changes. Basophil percentageOrdered B y: Dr. Ramos on 09-02-2022 Basophil percentage 3.7 mg/dL 2.5-4.9 [place] Direct bilirubinOrdered By: Dr. Segal on 09-02-2022 Bilirubin.direct [Mass/Vol] 0.18 mg/dL 0.00-0.30 [facility] INR in Blood by Coagulation assayOrdered By: Dr. Segal on 09-02-2022 INR Coag (Bld) [Relative time] 1.2 {INR} [facility] Laboratory - Chemistry and C hemistry - challengeOrdered By: Dr. Ramos on 09-02-2022 Magnesium [Mass/Vol] 2.2 mg/dL 1.6-2.6 [facility] Laboratory - CoagulationOrde red By: Dr. Segal on 09-02-2022 PT Coag (PPP) [Time] 14.4 s 11.7-14.9 [facility] Serum procalcitonin measurem entOrdered By: Dr. Ramos on 09-02-2022 Procalcitonin [Mass/Vol] 0.18 ng/mL 0.00-0.09 [facility] Comment on above: A procalcitonin (PCT ) level above 2.0 ng/mL on the first day of ICU admission is associated with a high risk for progression to severe sepsis and/or septic shock. A PCT level below 0.5 ng/mL on the first day of ICU admission is associated with a low risk for progression to severe and/or septic shock. Note: Concentrations <0.5 ng/mL do not exclude an infection on account of localized infections (without systemic signs) which can be associated with such low concentrations, or a systemic infection in its initial stages (<6 hours). Furthermore, increased procalcitonin can occur without infection. PCT concentrations between 0.5 and 2.0 ng/mL should be interpreted taking into account the patient's history. It is recommended to retest PCT within 6-24 hours if any concentrations <2 ng/mL are obtained. .Auto Diffon 01-27-2022 Basophil, Absolute 0.0 10 3/mcL Normal 0.0-0.3 [facility] ([place]) Comment on above: Performed By: #### G , BMP #### [address] [address] Basophils/100 WBC (Bld) 0.7 % Normal 0.0-2.5 [facility] ([place]) Comment on above: Performed By: #### G FR, BMP #### [address] [address] Eosinophil, Absolute 0.6 10 3/mcL Normal 0.0-0.7 [facility] ([place]) Comment on above: Performed By: #### G , BMP #### [address] [address] Eosinophils/100 WBC (Bld) 7.7 % High 0.0-6.0 [facility] ([place] Comment on above: Performed By: #### G FR, BMP #### [address] [address] Lymphocyte, Absolute 0.9 10 3/mcL Normal 0.9-4.3 [facility] ([place] Comment on above: Performed By: #### G FR, BMP #### [address] [address] Lymphocytes/100 WBC (Bld) 11.6 % Low 20.0-40.0 [facility] ([place] Comment on above: Performed By: #### G FR, BMP #### [address] [address] Monocyte, Absolute 1.0 10 3/mcL Normal 0.1-1.4 [facility] ([place] Comment on above: Performed By: #### G FR, BMP #### [address] [address] Monocytes/100 WBC (Bld) 13.5 % High 2.0-13.0 [facility] ([place] Comment on above: Performed By: #### G FR, BMP #### [address] [address] Neutrophils/100 WBC (Bld) 66.5 % Normal 50.0-75.0 [facility] ([place] Comment on above: Performed By: #### G FR, BMP #### [address] [address] .GFRon 01-27-2022 GFR >60 Normal [facility] ([place] Comment on above: Result Comment: GFR Population mean for , Non- Americans Ages 20-29 = 116 mL/min/1.73 sq.m. Ages 30-39 = 107 mL/min/1.73 sq.m. Ages 40-49 = 99 mL/min/1.73 sq.m. Ages 50-59 = 93 mL/min/1.73 sq.m. Ages 60-69 = 85 mL/min/1.73 sq.m. Ages 70+ = 75 mL/min/1.73 sq.m. Chronic Kidney Disease: Less than 60 mL/min/1.73 square meters End Stage Renal Disease: Less than 15 mL/min/1.73 square meters Performed By: #### Fannie HARPER, BMP #### [address] [address] GFR Non- >60 Normal [facility] ([place] Comment on above: Result Comment: GFR Population mean for , Non- Americans Ages 20-29 = 116 mL/min/1.73 sq.m. Ages 30-39 = 107 mL/min/1.73 sq.m. Ages 40-49 = 99 mL/min/1.73 sq.m. Ages 50-59 = 93 mL/min/1.73 sq.m. Ages 60-69 = 85 mL/min/1.73 sq.m. Ages 70+ = 75 mL/min/1.73 sq.m. Chronic Kidney Disease: Less than 60 mL/min/1.73 square meters End Stage Renal Disease: Less than 15 mL/min/1.73 square meters Performed By: #### Fannie HARPER, BMP #### [place] [address] .MDWon 01-27-2022 Monocyte Distribution Width Not performed Normal 0.00-20.00 [facility] ([place] Comment on above: Result Comment: MDW testing performed only on adult ER patients between the ages of 18-89 years. Performed By: #### Fannie HARPER, BMP #### [place] [address] .NEUABSon 01-27-2022 Neutrophil, Absolute 5.0 10 3/mcL Normal 2.3-8.1 [facility] ([place] Comment on above: Performed By: #### Fannie HARPER, BMP #### [place] [address] BMPon 01-27-2022 BUN/Creatinine Ratio 16.9 ratio Normal 10.0-22.0 [facility] ([place] Comment on above: Performed By: #### Fannie HARPER, BMP #### [place] [address] Calcium [Mass/Vol] 10.0 mg/dL Normal 8.7-10.4 [facility] ([place]) Comment on above: Performed By: #### Fannie HARPER, BMP #### [address] [address] Chloride [Moles/Vol] 108 mmol/L Normal 98-110 [facility] ([place] Comment on above: Performed By: #### Fannie HARPER, BMP #### [address] [address] CO2 [Moles/Vol] 28 mmol/L Normal 22-32 [facility] ([place] Comment on above: Performed By: #### Fannie HARPER, BMP #### [address] [address] Creatinine [Mass/Vol] 0.89 mg/dL Normal 0.60-1.40 [facility] ([place] Comment on above: Performed By: #### Fannie HARPER, BMP #### [address] [address] Electrolyte Balance 6.0 mEq/L Normal 4.0-15.0 [facility] ([place] Comment on above: Performed By: #### Fannie HARPER, BMP #### [address] [address] Glucose [Mass/Vol] 106 mg/dL Normal 82-115 [facility] ([place] Comment on above: Performed By: #### Fannie HARPER, BMP #### [address] [address] Potassium [Moles/Vol] 4.3 mmol/L Normal 3.5-5.0 [facility] ([place] Comment on above: Performed By: #### Fannie HARPER, BMP #### [address] [address] Sodium [Moles/Vol] 142 mmol/L Normal 136-145 [facility] ([place] Comment on above: Performed By: #### Fannie HARPER, BMP #### [address] [address] Urea nitrogen [Mass/Vol] 15.0 mg/dL Normal 8.0-22.0 [facility] ([place] Comment on above: Performed By: #### Fannie HARPER, BMP #### [address] [address] CBCon 07-07-2022 Erythrocyte distribution width (RBC) [Ratio] 13.8 % Normal 11.5-15.5 [facility] ([place] Comment on above: Performed By: #### Fannie HARPER, BMP #### [place] [address] Hematocrit (Bld) [Volume fraction] 41.2 % Normal 40.0-52.0 [facility] ([place] Comment on above: Performed By: #### Fannie HARPER, BMP #### [place] [address] Hgb 14.1 G/dL Normal 13.0-17.5 [facility] ([place] Comment on above: Performed By: #### Fannie HARPER, BMP #### [place] [address] MCH (RBC) [Entitic mass] 34.8 pg High 27.0-33.0 [facility] ([place] Comment on above: Performed By: #### Fannie HARPER, BMP #### [place] [address] MCHC 34.3 G/dL Normal 32.0-36.0 [facility] ([place] Comment on above: Performed By: #### Fannie HARPER, BMP #### [place] [address] MCV (RBC) [Entitic vol] 101.7 fL High 81.0-100.0 [facility] ([place] Comment on above: Performed By: #### Fannie HARPER, BMP #### [place] [address] Platelet 236 10 3/mcL Normal 150-450 [facility] ([place] Comment on above: Performed By: #### Fannie HARPER, BMP #### [place] [id number] Platelet mean volume (Bld) [Entitic vol] 8.1 fL Normal 6.4-10.5 [facility] ([place] Comment on above: Performed By: #### Fannie HARPER, BMP #### [place] [id number] RBC 4.05 10 6/mcL Low 4.50-6.00 [facility] ([place] Comment on above: Performed By: #### G , SANDRA #### [address] [address] WBC 7.4 10 3/mcL Normal 4.5-10.8 [facility] ([place] Comment on above: Performed By: #### G , SANDRA #### [address] [address] LABORATORYOrdered By: SYSTEM SYSTEM on 01-27-2022 Basophils (Bld) [#/Vol] 0.0 103/mcL Invalid Interpretation Code 0.0 - 0.3 10^3/mcL Workflow SS Basophils/100 WBC (Bld) 0.7 % Invalid Interpretation Code 0.0 - 2.5 % Workflow SS Calcium [Mass/Vol] 10.0 mg/dL Invalid Interpretation Code 8.7 - 10.4 mg/dL ADM SS Chloride [Moles/Vol] 108 mmol/L Invalid Interpretation Code 98 - 110 mEq/L ADM SS CO2 [Moles/Vol] 28 mmol/L Invalid Interpretation Code 22 - 32 mEq/L ADM SS Creatinine [Mass/Vol] 0.89 mg/dL Invalid Interpretation Code 0.60 - 1.40 mg/dL ADM SS Electrolyte Balance 6.0 mEq/L Invalid Interpretation Code 4.0 - 15.0 mEq/L ADM SS Eosinophils (Bld) [#/Vol] 0.6 103/mcL Invalid Interpretation Code 0.0 - 0.7 10^3/mcL AH Workflow SS Eosinophils/100 WBC (Bld) 7.7 % Invalid Interpretation Code 0.0 - 6.0 % AH Workflow SS Erythrocyte distribution width (RBC) [Ratio] 13.8 % Invalid Interpretation Code 11.5 - 15.5 % Workflow SS GFR/1.73 sq M.predicted among blacks MDRD (S/P/Bld) [Vol rate/Area] ml/min/1.73sqm Invalid Interpretation Code Chemistry S GFR/1.73 sq M.predicted among non-blacks MDRD (S/P/Bld) [Vol rate/Area] ml/min/1.73sqm Invalid Interpretation Code Chemistry S Glucose [Mass/Vol] 106 mg/dL Invalid Interpretation Code 82 - 115 mg/dL ADM SS Hematocrit (Bld) [Volume fraction] 41.2 % Invalid Interpretation Code 40.0 - 52.0 % AH Workflow SS Hemoglobin (Bld) [Mass/Vol] 14.1 G/dL Invalid Interpretation Code 13.0 - 17.5 G/dL AH Workflow SS Lymphocytes (Bld) [#/Vol] 0.9 103/mcL Invalid Interpretation Code 0.9 - 4.3 10^3/mcL AH Workflow SS Lymphocytes/100 WBC (Bld) 11.6 % Invalid Interpretation Code 20.0 - 40.0 % AH Workflow SS MCH (RBC) [Entitic mass] 34.8 pg Invalid Interpretation Code 27.0 - 33.0 pg AH Workflow SS MCHC 34.3 G/dL Invalid Interpretation Code 32.0 - 36.0 G/dL AH Workflow SS MCV (RBC) [Entitic vol] 101.7 fL Invalid Interpretation Code 81.0 - 100.0 fL AH Workflow SS Monocyte distribution width Auto (Bld) [Entitic vol] Not Performed 1 *NA* (01/27/22 6:24 AM) Invalid Interpretation Code 0.00 - 20.00 [facility] Comment on above: Result Comment: MDW testing performed only on adult ER patients between the ages of 18-89 years. Monocytes (Bld) [#/Vol] 1.0 103/mcL Invalid Interpretation Code 0.1 - 1.4 10^3/mcL AH Workflow SS Monocytes/100 WBC (Bld) 13.5 % Invalid Interpretation Code 2.0 - 13.0 % AH Workflow SS Neutrophils (Bld) [#/Vol] 5.0 103/mcL Invalid Interpretation Code 2.3 - 8.1 10^3/mcL AH Workflow SS Neutrophils/100 WBC (Bld) 66.5 % Invalid Interpretation Code 50.0 - 75.0 % AH Workflow SS Platelet mean volume (Bld) [Entitic vol] 8.1 fL Invalid Interpretation Code 6.4 - 10.5 fL AH Workflow SS Platelets (Bld) [#/Vol] 236 103/mcL Invalid Interpretation Code 150 - 450 10^3/mcL AH Workflow SS Potassium [Moles/Vol] 4.3 mmol/L Invalid Interpretation Code 3.5 - 5.0 mEq/L ADM SS RBC (Bld) [#/Vol] 4.05 106/mcL Invalid Interpretation Code 4.50 - 6.00 10^6/mcL Workflow SS Sodium [Moles/Vol] 142 mmol/L Invalid Interpretation Code 136 - 145 mEq/L AH ADM SS Urea nitrogen [Mass/Vol] 15.0 mg/dL Invalid Interpretation Code 8.0 - 22.0 mg/dL AH ADM SS Urea nitrogen/Creatinine [Mass ratio] 16.9 ratio Invalid Interpretation Code 10.0 - 22.0 ratio AH ADM SS WBC 7.4 103/mcL Invalid Interpretation Code 4.5 - 10.8 10^3/mcL Workflow SS LABORATORYOrdered By: SYSTEM SYSTEM on 12-01-2021 Basophils (Bld) [#/Vol] 0.10 103/mcL Invalid Interpretation Code 0.00 - 0.27 10^3/mcL AH Remisol SS Basophils/100 WBC (Bld) 1.0 % Invalid Interpretation Code 0.0 - 2.5 % Remisol SS Calcium [Mass/Vol] 9.5 mg/dL Invalid Interpretation Code 8.7 - 10.4 mg/dL ADM SS Chloride [Moles/Vol] 105 mmol/L Invalid Interpretation Code 98 - 110 mEq/L ADM SS CO2 [Moles/Vol] 28 mmol/L Invalid Interpretation Code 22 - 32 mEq/L AH ADM SS Creatinine [Mass/Vol] 0.79 mg/dL Invalid Interpretation Code 0.60 - 1.40 mg/dL AH ADM SS Electrolyte Balance 5.0 mEq/L Invalid Interpretation Code 4.0 - 15.0 mEq/L AH ADM SS Eosinophils (Bld) [#/Vol] 0.70 103/mcL Invalid Interpretation Code 0.00 - 0.65 10^3/mcL Remisol SS Eosinophils/100 WBC (Bld) 9.3 % Invalid Interpretation Code 0.0 - 6.0 % AH Remisol SS Erythrocyte distribution width (RBC) [Ratio] 13.3 % Invalid Interpretation Code 11.5 - 15.5 % AH Remisol SS GFR/1.73 sq M.predicted among blacks MDRD (S/P/Bld) [Vol rate/Area] ml/min/1.73sqm Invalid Interpretation Code AH ADM SS GFR/1.73 sq M.predicted among non-blacks MDRD (S/P/Bld) [Vol rate/Area] ml/min/1.73sqm Invalid Interpretation Code AH ADM SS Glucose [Mass/Vol] 109 mg/dL Invalid Interpretation Code 82 - 115 mg/dL AH ADM SS Hematocrit (Bld) [Volume fraction] 40.0 % Invalid Interpretation Code 40.0 - 52.0 % AH Remisol SS Hemoglobin (Bld) [Mass/Vol] 14.1 G/dL Invalid Interpretation Code 13.0 - 17.5 G/dL AH Remisol SS Lymphocytes (Bld) [#/Vol] 0.90 103/mcL Invalid Interpretation Code 0.90 - 4.32 10^3/mcL AH Remisol SS Lymphocytes/100 WBC (Bld) 12.9 % Invalid Interpretation Code 20.0 - 40.0 % Remisol SS Magnesium [Mass/Vol] 2.0 mg/dL Invalid Interpretation Code 1.6 - 2.4 mg/dL AH ADM SS MCH (RBC) [Entitic mass] 35.8 pg Invalid Interpretation Code 27.0 - 33.0 pg AH Remisol SS MCHC (RBC) [Mass/Vol] 35.1 G/dL Invalid Interpretation Code 32.0 - 36.0 G/dL AH Remisol SS MCV (RBC) [Entitic vol] 102.0 fL Invalid Interpretation Code 81.0 - 100.0 fL AH Remisol SS Monocytes (Bld) [#/Vol] 1.00 103/mcL Invalid Interpretation Code 0.09 - 1.40 10^3/mcL AH Remisol SS Monocytes/100 WBC (Bld) 14.1 % Invalid Interpretation Code 2.0 - 13.0 % AH Remisol SS Neutrophils (Bld) [#/Vol] 4.50 103/mcL Invalid Interpretation Code 2.25 - 8.10 10^3/mcL AH Remisol SS Neutrophils/100 WBC (Bld) 62.7 % Invalid Interpretation Code 50.0 - 75.0 % AH Remisol SS Platelet mean volume (Bld) [Entitic vol] 8.8 fL Invalid Interpretation Code 6.4 - 10.5 fL AH Remisol SS Platelets (Bld) [#/Vol] 206 103/mcL Invalid Interpretation Code 150 - 450 10^3/mcL AH Remisol SS Potassium [Moles/Vol] 3.6 mmol/L Invalid Interpretation Code 3.5 - 5.0 mEq/L AH ADM SS Comment on above: Result Comment: Spec imen slightly hemolyzed. RBC (Bld) [#/Vol] 3.93 106/mcL Invalid Interpretation Code 4.50 - 6.00 10^6/mcL AH Remisol SS Sodium [Moles/Vol] 138 mmol/L Invalid Interpretation Code 136 - 145 mEq/L AH ADM SS Urea nitrogen [Mass/Vol] 10.0 mg/dL Invalid Interpretation Code 8.0 - 22.0 mg/dL AH ADM SS Urea nitrogen/Creatinine [Mass ratio] 12.7 ratio Invalid Interpretation Code 10.0 - 22.0 ratio AH ADM SS WBC (Bld) [#/Vol] 7.20 103/mcL Invalid Interpretation Code 4.50 - 10.80 10^3/mcL AH Remisol SS LABORATORYOrdered By: Carey Nunez on 11-30-2021 Appearance (U) Clear (11/30/21 6:02 PM) Invalid Interpretation Code Clear AH Auto Urine SS Bilirubin Ql (U) Negative (11/30/21 6:02 PM) Invalid Interpretation Code Neg-Trace AH Auto Urine SS Color (U) Yellow (11/30/21 6:02 PM) Invalid Interpretation Code AH Auto Urine SS Glucose Test strip (U) [Mass/Vol] Negative Invalid Interpretation Code Negativemg/d L AH Auto Urine SS Hemoglobin Auto test strip (U) [Mass/Vol] Negative (11/30/21 6:02 PM) Invalid Interpretation Code Neg-Trace AH Auto Urine SS Ketones Ql (U) Negative Invalid Interpretation Code Neg-Tracemg/ dL AH Auto Urine SS UA Leuk Est Negative (11/30/21 6:02 PM) Invalid Interpretation Code Negative AH Auto Urine SS UA Nitrite Negative (11/30/21 6:02 PM) Invalid Interpretation Code Negative AH Auto Urine SS UA pH 7.0 (11/30/21 6:02 PM) Invalid Interpretation Code 5.0 - 8.0 AH Auto Urine SS UA Protein Negative Invalid Interpretation Code Negativemg/d L AH Auto Urine SS UA Spec Grav <=1.005 *ABN* (11/30/21 6:02 PM) Invalid Interpretation Code 1.006-1.029 AH Auto Urine SS UA Specimen Type Clean Catch (11/30/21 6:02 PM) Invalid Interpretation Code AH Auto Urine SS UA Urobilinogen 0.2 E.U./dL Invalid Interpretation Code 0.2-1.0E.U./ dL AH Auto Urine SS LABORATORYOrdered By: Janette Tirado on 11-30-2021 Barometric Pressure 742 mm[Hg] Invalid Interpretation Code Auto Chem SS Base excess Calc (Bld) [Moles/Vol] 1.0 mmol/L Invalid Interpretation Code AH Auto Chem SS CO2 (Bld) [Partial pressure] 33.4 mm[Hg] Invalid Interpretation Code 32.0 - 46.0 mm Hg AH Auto Chem SS CO2 [Moles/Vol] 25.0 mmol/L Invalid Interpretation Code 22.0 - 30.0 mmol/L AH Auto Chem SS HCO3 (Bld) [Moles/Vol] 23.9 mmol/L Invalid Interpretation Code 21.0 - 29.0 mmol/L AH Auto Chem SS Oxygen (Bld) [Partial pressure] 78.0 mm[Hg] Invalid Interpretation Code 74.0 - 108.0 mm Hg AH Auto Chem SS pH (Bld) 7.473 [pH] Invalid Interpretation Code 7.380 - 7.460 Auto Chem SS LABORATORYOrdered By: SYSTEM SYSTEM on 11-30-2021 Albumin BCP dye [Mass/Vol] 3.1 G/dL Invalid Interpretation Code 3.2 - 4.8 G/dL ADM SS Albumin/Globulin [Mass ratio] 1.0 {ratio} Invalid Interpretation Code 0.9 - 1.6 ratio ADM SS ALP [Catalytic activity/Vol] 135 U/L Invalid Interpretation Code 38 - 126 U/L ADM SS ALT No additional P-5'-P [Catalytic activity/Vol] 35 U/L Invalid Interpretation Code 12 - 55 U/L ADM SS AST [Catalytic activity/Vol] 100 U/L Invalid Interpretation Code 8 - 34 U/L ADM SS Basophils/100 WBC (Bld) 0.7 % Invalid Interpretation Code 0.0 - 2.5 % AH Remisol SS Basophils/100 WBC (Bld) 0.6 % Invalid Interpretation Code 0.0 - 2.5 % Remisol SS Bilirubin [Mass/Vol] 0.60 mg/dL Invalid Interpretation Code 0.20 - 1.20 mg/dL ADM SS Calcium [Mass/Vol] 9.3 mg/dL Invalid Interpretation Code 8.7 - 10.4 mg/dL ADM SS Calcium [Mass/Vol] 9.4 mg/dL Invalid Interpretation Code 8.7 - 10.4 mg/dL ADM SS Chloride [Moles/Vol] 109 mmol/L Invalid Interpretation Code 98 - 110 mEq/L ADM SS Chloride [Moles/Vol] 108 mmol/L Invalid Interpretation Code 98 - 110 mEq/L ADM SS Creatinine [Mass/Vol] 0.81 mg/dL Invalid Interpretation Code 0.60 - 1.40 mg/dL ADM SS Creatinine [Mass/Vol] 0.77 mg/dL Invalid Interpretation Code 0.60 - 1.40 mg/dL ADM SS Electrolyte Balance 3.0 mEq/L Invalid Interpretation Code 4.0 - 15.0 mEq/L ADM SS Electrolyte Balance 4.0 mEq/L Invalid Interpretation Code 4.0 - 15.0 mEq/L ADM SS Erythrocyte distribution width (RBC) [Ratio] 13.1 % Invalid Interpretation Code 11.5 - 15.5 % Remisol SS Erythrocyte distribution width (RBC) [Ratio] 13.3 % Invalid Interpretation Code 11.5 - 15.5 % Remisol SS GFR/1.73 sq M.predicted among blacks MDRD (S/P/Bld) [Vol rate/Area] ml/min/1.73sqm Invalid Interpretation Code ADM SS GFR/1.73 sq M.predicted among non-blacks MDRD (S/P/Bld) [Vol rate/Area] ml/min/1.73sqm Invalid Interpretation Code ADM SS Globulin 3.2 G/dL Invalid Interpretation Code 1.5 - 3.8 G/dL ADM SS Glucose [Mass/Vol] 101 mg/dL Invalid Interpretation Code 82 - 115 mg/dL ADM SS Glucose [Mass/Vol] 102 mg/dL Invalid Interpretation Code 82 - 115 mg/dL ADM SS HbA1c (Bld) [Mass fraction] 5.5 % Invalid Interpretation Code 4.0 - 6.0 % Auto Chem SS Hematocrit (Bld) [Volume fraction] 40.7 % Invalid Interpretation Code 40.0 - 52.0 % Remisol SS Hematocrit (Bld) [Volume fraction] 40.4 % Invalid Interpretation Code 40.0 - 52.0 % Remisol SS Hemoglobin (Bld) [Mass/Vol] 13.9 G/dL Invalid Interpretation Code 13.0 - 17.5 G/dL Remisol SS Hemoglobin (Bld) [Mass/Vol] 14.0 G/dL Invalid Interpretation Code 13.0 - 17.5 G/dL AH Remisol SS Lymphocytes (Bld) [#/Vol] 0.80 103/mcL Invalid Interpretation Code 0.90 - 4.32 10^3/mcL AH Remisol SS Lymphocytes (Bld) [#/Vol] 0.90 103/mcL Invalid Interpretation Code 0.90 - 4.32 10^3/mcL AH Remisol SS Lymphocytes/100 WBC (Bld) 8.4 % Invalid Interpretation Code 20.0 - 40.0 % AH Remisol SS Lymphocytes/100 WBC (Bld) 9.2 % Invalid Interpretation Code 20.0 - 40.0 % AH Remisol SS Magnesium [Mass/Vol] 2.0 mg/dL Invalid Interpretation Code 1.6 - 2.4 mg/dL AH ADM SS MCH (RBC) [Entitic mass] 34.7 pg Invalid Interpretation Code 27.0 - 33.0 pg AH Remisol SS MCH (RBC) [Entitic mass] 35.0 pg Invalid Interpretation Code 27.0 - 33.0 pg AH Remisol SS MCHC (RBC) [Mass/Vol] 34.1 G/dL Invalid Interpretation Code 32.0 - 36.0 G/dL AH Remisol SS MCHC (RBC) [Mass/Vol] 34.7 G/dL Invalid Interpretation Code 32.0 - 36.0 G/dL AH Remisol SS MCV (RBC) [Entitic vol] 101.8 fL Invalid Interpretation Code 81.0 - 100.0 fL AH Remisol SS MCV (RBC) [Entitic vol] 100.9 fL Invalid Interpretation Code 81.0 - 100.0 fL AH Remisol SS Monocytes/100 WBC (Bld) 13.2 % Invalid Interpretation Code 2.0 - 13.0 % AH Remisol SS Monocytes/100 WBC (Bld) 12.9 % Invalid Interpretation Code 2.0 - 13.0 % AH Remisol SS Neutrophils (Bld) [#/Vol] 7.30 103/mcL Invalid Interpretation Code 2.25 - 8.10 10^3/mcL AH Remisol SS Neutrophils (Bld) [#/Vol] 7.40 103/mcL Invalid Interpretation Code 2.25 - 8.10 10^3/mcL AH Remisol SS Neutrophils/100 WBC (Bld) 75.3 % Invalid Interpretation Code 50.0 - 75.0 % AH Remisol SS Neutrophils/100 WBC (Bld) 74.9 % Invalid Interpretation Code 50.0 - 75.0 % AH Remisol SS Platelet mean volume (Bld) [Entitic vol] 8.4 fL Invalid Interpretation Code 6.4 - 10.5 fL AH Remisol SS Platelet mean volume (Bld) [Entitic vol] 8.9 fL Invalid Interpretation Code 6.4 - 10.5 fL AH Remisol SS Platelets (Bld) [#/Vol] 207 103/mcL Invalid Interpretation Code 150 - 450 10^3/mcL AH Remisol SS Platelets (Bld) [#/Vol] 204 103/mcL Invalid Interpretation Code 150 - 450 10^3/mcL AH Remisol SS Potassium [Moles/Vol] 4.0 mmol/L Invalid Interpretation Code 3.5 - 5.0 mEq/L AH ADM SS Potassium [Moles/Vol] 3.7 mmol/L Invalid Interpretation Code 3.5 - 5.0 mEq/L AH ADM SS Protein [Mass/Vol] 6.3 G/dL Invalid Interpretation Code 5.7 - 8.2 G/dL AH ADM SS TSH Qn 1.631 mIU/mL Invalid Interpretation Code 0.550 - 4.780 mIU/mL AH ADM SS Urea nitrogen [Mass/Vol] 14.0 mg/dL Invalid Interpretation Code 8.0 - 22.0 mg/dL AH ADM SS Urea nitrogen [Mass/Vol] 13.0 mg/dL Invalid Interpretation Code 8.0 - 22.0 mg/dL AH ADM SS Urea nitrogen/Creatinine [Mass ratio] 17.3 ratio Invalid Interpretation Code 10.0 - 22.0 ratio AH ADM SS Urea nitrogen/Creatinine [Mass ratio] 16.9 ratio Invalid Interpretation Code 10.0 - 22.0 ratio AH ADM SS WBC (Bld) [#/Vol] 9.70 103/mcL Invalid Interpretation Code 4.50 - 10.80 10^3/mcL AH Remisol SS WBC (Bld) [#/Vol] 9.90 103/mcL Invalid Interpretation Code 4.50 - 10.80 10^3/mcL AH Remisol SS LABORATORYOrdered By: Mallory Schultz on 11-30-2021 Cholesterol [Mass/Vol] 150 mg/dL Invalid Interpretation Code 50 - 199 mg/dL AH ADM SS Cholesterol in HDL [Mass/Vol] 34 mg/dL Invalid Interpretation Code 40 - 59 mg/dL ADM SS Cholesterol in LDL [Mass/Vol] 84 mg/dL Invalid Interpretation Code 0 - 129 mg/dL ADM SS Triglyceride [Mass/Vol] 158 mg/dL Invalid Interpretation Code 3 - 149 mg/dL ADM SS LABORATORYOrdered By: Zuleika Heredia on 11-30-2021 Natriuretic peptide.B prohormone N-Terminal [Mass/Vol] 1792 pg/mL Invalid Interpretation Code 0 - 1800 pg/mL Auto Chem SS Laboratory - Chemistry and C hemistry - challengeOrdered By: [employer] on 11-30-2021 CO2 [Moles/Vol] 26 mmol/L Invalid Interpretation Code 22 - 32 mEq/L ADM SS Sodium [Moles/Vol] 138 mmol/L Invalid Interpretation Code 136 - 145 mEq/L ADM SS Laboratory - Hematology and Cell countsOrdered By: [employer] on 11-30-2021 Basophils (Bld) [#/Vol] 0.10 103/mcL Invalid Interpretation Code 0.00 - 0.27 10^3/mcL AH Remisol SS Eosinophils (Bld) [#/Vol] 0.20 103/mcL Invalid Interpretation Code 0.00 - 0.65 10^3/mcL AH Remisol SS Eosinophils/100 WBC (Bld) 2.4 % Invalid Interpretation Code 0.0 - 6.0 % AH Remisol SS Monocytes (Bld) [#/Vol] 1.30 103/mcL Invalid Interpretation Code 0.09 - 1.40 10^3/mcL AH Remisol SS RBC (Bld) [#/Vol] 4.00 106/mcL Invalid Interpretation Code 4.50 - 6.00 10^6/mcL AH Remisol SS LABORATORYOrdered By: [employer] on 11-29-2021 Albumin BCP dye [Mass/Vol] 3.3 G/dL Invalid Interpretation Code 3.2 - 4.8 G/dL ADM SS Albumin/Globulin [Mass ratio] 0.9 {ratio} Invalid Interpretation Code 0.9 - 1.6 ratio ADM SS ALP [Catalytic activity/Vol] 141 U/L Invalid Interpretation Code 38 - 126 U/L ADM SS ALT No additional P-5'-P [Catalytic activity/Vol] 31 U/L Invalid Interpretation Code 12 - 55 U/L AH ADM SS AST [Catalytic activity/Vol] 52 U/L Invalid Interpretation Code 8 - 34 U/L ADM SS Bilirubin [Mass/Vol] 0.60 mg/dL Invalid Interpretation Code 0.20 - 1.20 mg/dL AH ADM SS Cholesterol [Mass/Vol] 153 mg/dL Invalid Interpretation Code 50 - 199 mg/dL AH ADM SS GFR/1.73 sq M.predicted among blacks MDRD (S/P/Bld) [Vol rate/Area] ml/min/1.73sqm Invalid Interpretation Code AH Chemistry S GFR/1.73 sq M.predicted among non-blacks MDRD (S/P/Bld) [Vol rate/Area] ml/min/1.73sqm Invalid Interpretation Code AH Chemistry S Globulin 3.6 G/dL Invalid Interpretation Code 1.5 - 3.8 G/dL ADM SS HbA1c (Bld) [Mass fraction] 5.5 % Invalid Interpretation Code 4.0 - 6.0 % Auto Chem SS Magnesium [Mass/Vol] 1.9 mg/dL Invalid Interpretation Code 1.6 - 2.4 mg/dL ADM SS Protein [Mass/Vol] 6.9 G/dL Invalid Interpretation Code 5.7 - 8.2 G/dL ADM SS Triglyceride [Mass/Vol] 42 mg/dL Invalid Interpretation Code 3 - 149 mg/dL AH ADM SS GFR 78 ml/min/1.73sqm Invalid Interpretation Code AO Chemistry S GFR Non- 64 ml/min/1.73sqm Invalid Interpretation Code AO Chemistry S LABORATORYOrdered By: Ag Cornelius on 11-29-2021 Calcium.ionized (Bld) [Mass/Vol] 1.16 mmol/L Invalid Interpretation Code 1.12 - 1.32 mmol/L AH Auto Chem SS Lactate [Moles/Vol] 2.0 mmol/L Invalid Interpretation Code 0.2 - 2.0 mmol/L AH Auto Chem SS LABORATORYOrdered By: Carlos Leigh on 11-29-2021 aPTT Coag (Bld) [Time] 25.6 s Invalid Interpretation Code 24.8 - 33.3 seconds AO Coag SS Heparin dose (APTT) Heparin IV (11/29/21 2:52 PM) Invalid Interpretation Code AO Coag SS LABORATORYOrdered By: Cherry Salazar on 11-29-2021 Basophil, Absolute 0.10 103/mcL Invalid Interpretation Code 0.00 - 0.19 10^3/mcL AO Auto Heme SS Basophils/100 WBC (Bld) 0.7 % Invalid Interpretation Code 0.0 - 2.5 % AO Auto Heme SS Eosinophil, Absolute 0.40 103/mcL Invalid Interpretation Code 0.00 - 0.40 10^3/mcL AO Auto Heme SS Eosinophils/100 WBC (Bld) 3.6 % Invalid Interpretation Code 0.0 - 7.0 % AO Auto Heme SS Erythrocyte distribution width (RBC) [Ratio] 13.4 % Invalid Interpretation Code 11.5 - 14.5 % AO Auto Heme SS Hematocrit (Bld) [Volume fraction] 45.8 % Invalid Interpretation Code 42.0 - 52.0 % AO Auto Heme SS Hemoglobin (Bld) [Mass/Vol] 15.6 G/dL Invalid Interpretation Code 14.0 - 18.0 G/dL AO Auto Heme SS Lymphocyte, Absolute 1.10 103/mcL Invalid Interpretation Code 0.77 - 3.85 10^3/mcL AO Auto Heme SS Lymphocytes/100 WBC (Bld) 10.0 % Invalid Interpretation Code 10.0 - 50.0 % AO Auto Heme SS MCH (RBC) [Entitic mass] 34.3 pg Invalid Interpretation Code 27.0 - 31.2 pg AO Auto Heme SS MCHC (RBC) [Mass/Vol] 34.0 G/dL Invalid Interpretation Code 31.8 - 35.4 G/dL AO Auto Heme SS MCV (RBC) [Entitic vol] 101.0 fL Invalid Interpretation Code 80.0 - 94.0 fL AO Auto Heme SS Monocyte, Absolute 0.80 103/mcL Invalid Interpretation Code 0.15 - 1.00 10^3/mcL AO Auto Heme SS Monocytes/100 WBC (Bld) 7.8 % Invalid Interpretation Code 1.7 - 13.0 % AO Auto Heme SS Neutrophil, Absolute 8.30 103/mcL Invalid Interpretation Code 2.85 - 6.16 10^3/mcL AO Auto Heme SS Neutrophils/100 WBC (Bld) 77.9 % Invalid Interpretation Code 37.0 - 80.0 % AO Auto Heme SS Platelet mean volume (Bld) [Entitic vol] 8.7 fL Invalid Interpretation Code 7.4 - 10.4 fL AO Auto Heme SS Platelets (Bld) [#/Vol] 319 103/mcL Invalid Interpretation Code 130 - 400 10^3/mcL AO Auto Heme SS RBC (Bld) [#/Vol] 4.53 106/mcL Invalid Interpretation Code 4.04 - 6.13 10^6/mcL AO Auto Heme SS WBC (Bld) [#/Vol] 10.70 103/mcL Invalid Interpretation Code 4.60 - 10.80 10^3/mcL AO Auto Heme SS LABORATORYOrdered By: Marina Herron on 11-29-2021 Calcium [Mass/Vol] 10.6 mg/dL Invalid Interpretation Code 8.4 - 10.2 mg/dL AO ADM SS Chloride [Moles/Vol] 99 mmol/L Invalid Interpretation Code 98 - 107 mmol/L AO ADM SS CO2 [Moles/Vol] 24 mmol/L Invalid Interpretation Code 23 - 31 mmol/L AO ADM SS Creatinine [Mass/Vol] 1.13 mg/dL Invalid Interpretation Code 0.70 - 1.30 mg/dL AO ADM SS Electrolyte Balance 12.0 mEq/L Invalid Interpretation Code 4.0 - 15.0 mEq/L AO ADM SS Glucose [Mass/Vol] 199 mg/dL Invalid Interpretation Code 83 - 110 mg/dL AO ADM SS INR Coag (PPP) [Relative time] 1.0 {INR} Invalid Interpretation Code 0.9 - 1.2 ratio AO Coag SS Natriuretic peptide.B prohormone N-Terminal [Mass/Vol] 677 pg/mL Invalid Interpretation Code 0 - 125 pg/mL AO ADM SS Potassium [Moles/Vol] 4.7 mmol/L Invalid Interpretation Code 3.5 - 5.1 mmol/L AO ADM SS PT Coag (PPP) [Time] 11.1 s Invalid Interpretation Code 9.7 - 14.3 seconds AO Coag SS Sodium [Moles/Vol] 135 mmol/L Invalid Interpretation Code 136 - 145 mmol/L AO ADM SS Troponin I.cardiac DL <= 0.01 ng/mL [Mass/Vol] 478.9 ng/L Invalid Interpretation Code 0.0 - 76.2 ng/L AO ADM SS Urea nitrogen [Mass/Vol] 15 mg/dL Invalid Interpretation Code 7 - 18 mg/dL AO ADM SS Urea nitrogen/Creatinine [Mass ratio] 13 ratio Invalid Interpretation Code 7 - 27 ratio AO ADM SS Vital Signs Date Time Vital Sign Value Performing Clinician Facility 01-23-2025 21:38-0400 Body temperature 98.1 [degF] Dr. Valeriano Beasley MD Work Phone: 7(609)[phone] [place] [address] 01-23-2025 21:38-0400 Diastolic blood pressure 87 mm[Hg] Dr. Valeriano Beasley MD Work Phone: 8(271)[phone] [place] [address] 01-23-2025 21:38-0400 Heart rate 70 /min Dr. Valeriano Beasley MD Work Phone: 5(265)[phone] [place] [address] 01-23-2025 21:38-0400 Respiratory rate 16 /min Dr. Valeriano Beasley MD Work Phone: 3(697)[phone] [place] [address] 01-23-2025 21:38-0400 SaO2% (BldA) [Mass fraction] 97 % Dr. Valeriano Beasley MD Work Phone: 3(338)[phone] [place] [address] 01-23-2025 21:38-0400 Systolic blood pressure 155 mm[Hg] Dr. Valeriano Beasley MD Work Phone: 0(656)773-948563 [place] [address] 01-23-2025 19:30-0400 Body height 177.[address] Valeriano Beasley MD Work Phone: 3(170)265-381563 [place] [address] 01-23-2025 19:30-0400 Body mass index (BMI) [Ratio] 29.9 kg/m2 Dr. Valeriano Beasley MD Work Phone: 1(304)568-469263 [place] [address] 01-23-2025 19:30-0400 Body weight 94.[address] Valeriano Beasley MD Work Phone: 2(200)111-065063 [place] [address] 01-01-2025 09:50-0400 Body mass index (BMI) [Ratio] 31.13 kg/m2 Suzanna Dawson PA-C Work Phone: [facility] 01-01-2025 09:50-0400 Body temperature 97.81 [degF] Suzanna Dawson PA-C Work Phone: [facility] 01-01-2025 09:50-0400 Body weight 97.52 kg Suzanna Dawson PA-C Work Phone: [facility] 01-01-2025 09:50-0400 Diastolic blood pressure 80 mm[Hg] Suzanna Dawson PA-C Work Phone: [facility] 01-01-2025 09:50-0400 Heart rate 72 /min Suzanna Dawson PA-C Work Phone: [facility] 01-01-2025 09:50-0400 Respiratory rate 18 /min Suzanna Dawson PA-C Work Phone: [facility] 01-01-2025 09:50-0400 SaO2% (BldA) [Mass fraction] 96 % Suzanna Dawson PA-C Work Phone: [facility] 01-01-2025 09:50-0400 Systolic blood pressure 122 mm[Hg] Suzanna Dawson PA-C Work Phone: [facility] 12-30-2024 09:35-0400 Body height [address] Valeriano Beasley MD Work Phone: [facility] 12-30-2024 09:35-0400 Body weight 95.[address] Valeriano Beasley MD Work Phone: [facility] 12-30-2024 08:00-0400 Body temperature 98.1 [degF] Dr. Valeriano Beasley MD Work Phone: [facility] 12-30-2024 08:00-0400 Diastolic blood pressure 85 mm[Hg] Dr. Valeriano Beasley MD Work Phone: [facility] 12-30-2024 08:00-0400 Heart rate 73 /min Dr. Valeriano Beasley MD Work Phone: [facility] 12-30-2024 08:00-0400 Respiratory rate 18 /min Dr. Valeriano Beasley MD Work Phone: [facility] 12-30-2024 08:00-0400 SaO2% (BldA) [Mass fraction] 95 % Dr. Valeriano Beasley MD Work Phone: 6(339)652-844730 [place] [address] 12-30-2024 08:00-0400 Systolic blood pressure 159 mm[Hg] Dr. Valeriano Beasley MD Work Phone: 9(789)306-929963 [place] [address] 12-30-2024 05:56-0400 Body mass index (BMI) [Ratio] 30.2 kg/m2 Dr. Valeriano Beasley MD Work Phone: 4(703)447-898963 [place] [address] 12-29-2024 11:00-0400 Inhaled oxygen flow rate 2 L/min Dr. Valeriano Beasley MD Work Phone: 3(397)234-962663 [place] [address] 12-29-2024 09:00-0400 Inhaled oxygen concentration 30 % Dr. Valeriano Beasley MD Work Phone: 9(493)106-670963 [place] [address] 12-27-2024 15:15-0400 Diastolic blood pressure 67 mm[Hg] Dr. Valeriano Beasley MD Work Phone: 5(762)261-140063 [place] [address] 12-27-2024 15:15-0400 Heart rate 60 /min Dr. Valeriano Beasley MD Work Phone: 0(750)514-578363 [place] [address] 12-27-2024 15:15-0400 Respiratory rate 14 /min Dr. Valeriano Beasley MD Work Phone: 6(194)215-648363 [place] [address] 12-27-2024 15:15-0400 SaO2% (BldA) [Mass fraction] 97 % Dr. Valeriano Beasley MD Work Phone: 2(881)842-783963 [place] [address] 12-27-2024 15:15-0400 Systolic blood pressure 100 mm[Hg] Dr. Valeriano Beasley MD Work Phone: 4(108)467-617963 [place] [address] 12-27-2024 14:58-0400 Body temperature 99 [degF] Dr. Valeriano Beasley MD Work Phone: 1(121)702-475663 [place] [address] 12-27-2024 13:42-0400 Inhaled oxygen concentration 35 % Dr. Valeriano Beasley MD Work Phone: 0(951)107-813463 [place] [address] 12-27-2024 13:13-0400 Body height 177.[address] Valeriano Beasley MD Work Phone: 4(442)519-729763 [place] [address] 12-27-2024 13:13-0400 Body mass index (BMI) [Ratio] 30 kg/m2 Dr. Valeriano Beasley MD Work Phone: [facility] 12-27-2024 13:13-0400 Body weight 95.[address] Valeriano Beasley MD Work Phone: [facility] 12-23-2024 14:11-0400 Body mass index (BMI) [Ratio] 30.14 kg/m2 Patria Khanna Jr., MD Work Phone: [facility] 12-23-2024 [id number]:110400 Body weight 94.44 kg Patria Khanna Jr., MD Work Phone: [facility] 12-23-2024 14:11-0400 Diastolic blood pressure 82 mm[Hg] Patria Khanna Jr., MD Work Phone: [facility] 12-23-2024 14:11-0400 Heart rate 68 /min Patria Khanna Jr., MD Work Phone: [facility] 12-23-2024 14:11-0400 Respiratory rate 18 /min Patria Khanna Jr., MD Work Phone: [facility] 12-23-2024 14:11-0400 SaO2% (BldA) [Mass fraction] 94 % Patria Khanna Jr., MD Work Phone: [facility] 12-23-2024 14:11-0400 Systolic blood pressure 128 mm[Hg] Patria Khanna Jr., MD Work Phone: [facility] 11-05-2024 07:36-0400 Body mass index (BMI) [Ratio] 29.8 kg/m2 Dr. Valeriano Beasley MD Work Phone: [facility] 11-05-2024 07:36-0400 Body weight 94.[address] Valeriano Beasley MD Work Phone: [facility] 11-05-2024 07:36-0400 Diastolic blood pressure 72 mm[Hg] Dr. Valeriano Beasley MD Work Phone: [facility] 11-05-2024 07:36-0400 Heart rate 70 /min Dr. Valeriano Beasley MD Work Phone: [facility] 11-05-2024 07:36-0400 Respiratory rate 18 /min Dr. Valeriano Beasley MD Work Phone: [facility] 11-05-2024 07:36-0400 SaO2% (BldA) [Mass fraction] 95 % Dr. Valeriano Beasley MD Work Phone: [facility] 11-05-2024 07:36-0400 Systolic blood pressure 113 mm[Hg] Dr. Valeriano Beasley MD Work Phone: [facility] 11-01-2024 10:56-0400 Body mass index (BMI) [Ratio] 29.68 kg/m2 Ni Sauceda [employer] Work Phone: [facility] 11-01-2024 10:56-0400 Body weight 93 kg Ni Sauceda [employer] Work Phone: [facility] 11-01-2024 10:56-0400 Diastolic blood pressure 73 mm[Hg] Ni Sauceda APRN.[employer] Work Phone: [facility] 11-01-2024 10:56-0400 Systolic blood pressure 129 mm[Hg] Ni Sauceda APRN.[employer] Work Phone: [facility] 10-23-2024 13:09-0400 Body mass index (BMI) [Ratio] 29.97 kg/m2 Stephanie Masci DO Work Phone: [facility] 10-23-2024 13:09-0400 Body temperature 98.6 [degF] Stephanie Masci DO Work Phone: [facility] 10-23-2024 13:09-0400 Body weight 93.89 kg Stephanie Masci DO Work Phone: [facility] 10-23-2024 13:09-0400 Diastolic blood pressure 76 mm[Hg] Stephanie Renettai DO Work Phone: [facility] 10-23-2024 13:09-0400 Heart rate 83 /min Stephanie Masci DO Work Phone: [facility] 10-23-2024 13:09-0400 SaO2% (BldA) [Mass fraction] 97 % Stephanie Masci DO Work Phone: [facility] 10-23-2024 13:09-0400 Systolic blood pressure 126 mm[Hg] Stephanie Masci DO Work Phone: [facility] 09-25-2024 14:07-0500 Body height 177 cm Stephanie Masci DO Work Phone: [facility] 09-25-2024 14:07-0500 Body mass index (BMI) [Ratio] 30.55 kg/m2 Stephanie Masci DO Work Phone: [facility] 09-25-2024 14:07-0500 Body temperature 98.8 [degF] Stephanie Masci DO Work Phone: [facility] 09-25-2024 14:07-0500 Body weight 95.71 kg Stephanie Masci DO Work Phone: [facility] 09-25-2024 14:07-0500 Diastolic blood pressure 83 mm[Hg] Stephanie Masci DO Work Phone: [facility] 09-25-2024 14:07-0500 Heart rate 79 /min Stephanie Masci DO Work Phone: [facility] 09-25-2024 14:07-0500 SaO2% (BldA) [Mass fraction] 96 % Stephanie Masci DO Work Phone: [facility] 09-25-2024 14:07-0500 Systolic blood pressure 134 mm[Hg] Stephanie Masci DO Work Phone: [facility] 09-19-2024 14:11-0500 Body height 177.[address] Valeriano Beasley MD Work Phone: [facility] 09-19-2024 14:11-0500 Body mass index (BMI) [Ratio] 29.9 kg/m2 Dr. Valeriano Beasley MD Work Phone: [facility] 09-19-2024 14:11-0500 Body weight 94.[address] Valeriano Beasley MD Work Phone: 3(735)593-439430 [place] [address] 09-19-2024 14:11-0500 Diastolic blood pressure 70 mm[Hg] Dr. Valeriano Beasley MD Work Phone: 2(435)268-907830 [place] [address] 09-19-2024 14:11-0500 Heart rate 63 /min Dr. Valeriano Beasley MD Work Phone: 5(534)681-873330 [place] [address] 09-19-2024 14:11-0500 SaO2% (BldA) [Mass fraction] 97 % Dr. Valeriano Beasley MD Work Phone: 7(473)712-229730 [place] [address] 09-19-2024 14:11-0500 Systolic blood pressure 130 mm[Hg] Dr. Valeriano Beasley MD Work Phone: 7(452)081-470330 [place] [address] 08-30-2024 15:08-0500 Body mass index (BMI) [Ratio] 30.57 kg/m2 Patria Khanna Jr., MD Work Phone: 0(738)459-039814 [place] [address] 08-30-2024 15:08-0500 Body weight 93.08 kg Patria Khanna Jr., MD Work Phone: [facility] 08-30-2024 15:08-0500 Diastolic blood pressure 84 mm[Hg] Patria Khanna Jr., MD Work Phone: [facility] 08-30-2024 15:08-0500 Heart rate 64 /min Patria Khanna Jr., MD Work Phone: [facility] 08-30-2024 15:08-0500 SaO2% (BldA) [Mass fraction] 95 % Patria Khanna Jr., MD Work Phone: [facility] 08-30-2024 15:08-0500 Systolic blood pressure 145 mm[Hg] Patria Khanna Jr., MD Work Phone: [facility] 08-19-2024 13:14-0500 Body mass index (BMI) [Ratio] 30.71 kg/m2 Amudha Pazhanisamy DO Work Phone: [facility] 08-19-2024 13:14-0500 Body weight 93.5 kg Amudha Pazhanisamy DO Work Phone: [facility] 08-19-2024 13:14-0500 Diastolic blood pressure 61 mm[Hg] Amudha Pazhanisamy DO Work Phone: [facility] 08-19-2024 13:14-0500 Heart rate 55 /min Amudha Pazhanisamy DO Work Phone: [facility] 08-19-2024 13:14-0500 SaO2% (BldA) [Mass fraction] 97 % Amudha Pazhanisamy DO Work Phone: [facility] 08-19-2024 13:14-0500 Systolic blood pressure 95 mm[Hg] Amudha Pazhanisamy DO Work Phone: [facility] 07-31-2024 19:01-0500 Body mass index (BMI) [Ratio] 31.13 kg/m2 Valeriano Beasley MD Work Phone: [facility] 07-31-2024 19:01-0500 Body weight 94.8 kg Valeriano Beasley MD Work Phone: [facility] 07-31-2024 19:01-0500 Diastolic blood pressure 74 mm[Hg] Valeriano Beasley MD Work Phone: [facility] 07-31-2024 19:01-0500 Heart rate 68 /min Valeriano Beaslye MD Work Phone: [facility] 07-31-2024 19:01-0500 Respiratory rate 16 /min Valeriano Beasley MD Work Phone: [facility] 07-31-2024 19:01-0500 Systolic blood pressure 126 mm[Hg] Valeriano Beasley MD Work Phone: [facility] 07-18-2024 14:16-0500 Body temperature 98.5 [degF] Dr. Valeriano Beasley MD Work Phone: 6(517)997-513030 [place] [address] 07-18-2024 14:16-0500 Diastolic blood pressure 79 mm[Hg] Dr. Valeriano Beasley MD Work Phone: 7(333)312-480663 [place] [address] 07-18-2024 14:16-0500 Heart rate 73 /min Dr. Valeriano Beasley MD Work Phone: 1(327)812-977463 [place] [address] 07-18-2024 14:16-0500 Respiratory rate 19 /min Dr. Valeriano Beasley MD Work Phone: 9(387)144-747863 [place] [address] 07-18-2024 14:16-0500 SaO2% (BldA) [Mass fraction] 96 % Dr. Valeriano Beasley MD Work Phone: 7(720)[phone] [place] [address] 07-18-2024 14:16-0500 Systolic blood pressure 155 mm[Hg] Dr. Valeriano Beasley MD Work Phone: 3([phone])[phone] [place] [address] 07-18-2024 10:16-0500 Body mass index (BMI) [Ratio] 31.2 kg/m2 Dr. Valeriano Beasley MD Work Phone: 5(839)[phone] [place] [address] 07-18-2024 10:16-0500 Body weight 98.[address] Valeriano Beasley MD Work Phone: 2(669)[phone] [place] [address] 05-29-2024 12:54-0500 Body mass index (BMI) [Ratio] 30.54 kg/m2 Suzanna HERNANDEZ-C Work Phone: 2(592)[phone] [place] [address] 05-29-2024 12:54-0500 Body temperature 97.2 [degF] Suzanna Dawson PA-C Work Phone: 5(456)829-590914 [place] [address] 05-29-2024 12:54-0500 Body weight 92.99 kg Suzanna HERNANDEZ-C Work Phone: [facility] 05-29-2024 12:54-0500 Diastolic blood pressure 56 mm[Hg] Suzanna Dawson PA-C Work Phone: 3(133)991-833214 [place] [address] 05-29-2024 12:54-0500 Heart rate 66 /min Suzanna Dawson PA-C Work Phone: [facility] 05-29-2024 12:54-0500 Respiratory rate 18 /min Suzanna Dawson PA-C Work Phone: [facility] 05-29-2024 12:54-0500 SaO2% (BldA) [Mass fraction] 95 % Suzanna Dawson PA-C Work Phone: [facility] 05-29-2024 12:54-0500 Systolic blood pressure 120 mm[Hg] Suzanna Dawson PA-C Work Phone: [facility] 05-01-2024 13:00-0400 Body height 174.5 cm Suzanna Dawson PA-C Work Phone: [facility] 05-01-2024 13:00-0400 Body mass index (BMI) [Ratio] 29.35 kg/m2 Suzanna Dawson PA-C Work Phone: [facility] 05-01-2024 13:00-0400 Body temperature 97.5 [degF] Suzanna Dawson PA-C Work Phone: [facility] 05-01-2024 13:00-0400 Body weight 89.36 kg Suzanna Dawson PA-C Work Phone: [facility] 05-01-2024 13:00-0400 Diastolic blood pressure 62 mm[Hg] Suzanna Dawson PA-C Work Phone: [facility] 05-01-2024 13:00-0400 Heart rate 77 /min Suzanna Dawson PA-C Work Phone: [facility] 05-01-2024 13:00-0400 Respiratory rate 18 /min Suzanna Dawson PA-C Work Phone: [facility] 05-01-2024 13:00-0400 SaO2% (BldA) [Mass fraction] 96 % Suzanna Dawson PA-C Work Phone: [facility] 05-01-2024 13:00-0400 Systolic blood pressure 100 mm[Hg] Suzanna Dawson PA-C Work Phone: [facility] 04-04-2024 11:42-0400 Body mass index (BMI) [Ratio] 31.02 kg/m2 Ni Sauceda [employer] Work Phone: [facility] 04-04-2024 11:42-0400 Body weight 92.53 kg Ni Sauceda [employer] Work Phone: [facility] 04-04-2024 11:42-0400 Diastolic blood pressure 84 mm[Hg] Ni Sauceda [employer] Work Phone: [facility] 04-04-2024 11:42-0400 Heart rate 58 /min Ni Sauceda [employer] Work Phone: [facility] 04-04-2024 11:42-0400 Respiratory rate 14 /min Ni Sauceda [employer] Work Phone: [facility] 04-04-2024 11:42-0400 Systolic blood pressure 155 mm[Hg] Ni Sauceda [employer] Work Phone: [facility] 01-01-2024 16:56-0400 Diastolic blood pressure 80 mm[Hg] Patria Khanna Jr., MD Work Phone: [facility] Comment on above: LT arm adult cuff sitting 01-01-2024 16:56-0400 Systolic blood pressure 142 mm[Hg] Patria Khanna Jr., MD Work Phone: [facility] Comment on above: LT arm adult cuff sitting 01-01-2024 15:40-0400 Body mass index (BMI) [Ratio] 31.38 kg/m2 Patria Khanna Jr., MD Work Phone: [facility] 01-01-2024 15:40-0400 Body weight 93.62 kg Patria Khanna Jr., MD Work Phone: [facility] 01-01-2024 15:40-0400 Heart rate 76 /min Patria Khanna Jr., MD Work Phone: [facility] 01-01-2024 15:40-0400 Respiratory rate 16 /min Patria Khanna Jr., MD Work Phone: [facility] 01-01-2024 15:40-0400 SaO2% (BldA) [Mass fraction] 96 % Patria Khanna Jr., MD Work Phone: [facility] 09-05-2023 10:46-0500 Body height 177.[address] Valeriano Beasley Work Phone: [facility] 09-05-2023 10:46-0500 Body mass index (BMI) [Ratio] 29.9 kg/m2 Dr. Valeriano Beasley Work Phone: 4(579)[phone] [place] [address] 09-05-2023 10:46-0500 Body weight 94.[address] Valeriano Beasley Work Phone: 1(334)237-716430 [place] [address] 09-05-2023 10:46-0500 Diastolic blood pressure 86 mm[Hg] Dr. Valeriano Beasley Work Phone: 5(591)369-289930 [place] [address] 09-05-2023 10:46-0500 Heart rate 64 /min Dr. Valeriano Beasley Work Phone: [facility] 09-05-2023 10:46-0500 Respiratory rate 18 /min Dr. Valeriano Beasley Work Phone: [facility] 09-05-2023 10:46-0500 SaO2% (BldA) [Mass fraction] 95 % Dr. Valeriano Beasley Work Phone: [facility] 09-05-2023 10:46-0500 Systolic blood pressure 134 mm[Hg] Dr. Valeriano Beasley Work Phone: [facility] 09-01-2023 10:41-0500 Body mass index (BMI) [Ratio] 29.6 kg/m2 Dr. Valeriano Beasley Work Phone: [facility] 09-01-2023 10:41-0500 Body weight 93.[address] Valeriano Beasley Work Phone: [facility] 05-18-2023 10:39-0400 Body weight 91.76 kg Valeriano Beasley MD Work Phone: [facility] 05-18-2023 10:39-0400 Diastolic blood pressure 80 mm[Hg] Valeriano Beasley MD Work Phone: [facility] 05-18-2023 10:39-0400 Heart rate 58 /min Valeriano Beasley MD Work Phone: [facility] 05-18-2023 10:39-0400 SaO2% (BldA) [Mass fraction] 96 % Valeriaon Beasley MD Work Phone: [facility] 05-18-2023 10:39-0400 Systolic blood pressure 122 mm[Hg] Valeriano Beasley MD Work Phone: [facility] 04-20-2023 12:38-0400 Diastolic blood pressure 81 mm[Hg] Valeriano Beasley MD Work Phone: [facility] 04-20-2023 12:38-0400 Heart rate 53 /min Valeriano Beasley MD Work Phone: [facility] 04-20-2023 12:38-0400 Systolic blood pressure 152 mm[Hg] Valeriano Beasley MD Work Phone: [facility] 04-20-2023 11:22-0400 Body height 174.6 cm Valeriano Beasley MD Work Phone: [facility] 04-20-2023 11:22-0400 Body weight 91.17 kg Valeriano Beasley MD Work Phone: [facility] 04-20-2023 11:22-0400 Respiratory rate 16 /min Valeriano Beasley MD Work Phone: [facility] 12-09-2022 11:00-0400 Body height 177.[address] Valeriano Beasley Work Phone: [facility] 12-09-2022 11:00-0400 Body mass index (BMI) [Ratio] 27.6 kg/m2 Dr. Valeriano Beasley Work Phone: 9(791)418-560130 [place] [address] 12-09-2022 11:00-0400 Body weight 87.[address] Valeriano Beasley Work Phone: 5(951)739-508030 [place] [address] 12-09-2022 11:00-0400 Diastolic blood pressure 71 mm[Hg] Dr. Valeriano Beasley Work Phone: 2(204)277-934863 [place] [address] 12-09-2022 11:00-0400 Heart rate 59 /min Dr. Valeriano Beasley Work Phone: 6(576)592-739263 [place] [address] 12-09-2022 11:00-0400 Respiratory rate 16 /min Dr. Valeriano Beasley Work Phone: 8(573)036-074663 [place] [address] 12-09-2022 11:00-0400 Systolic blood pressure 141 mm[Hg] Dr. Valeriano Beasley Work Phone: 0(080)624-973063 [place] [address] 2022 12:59-0400 Body mass index (BMI) [Ratio] 28.3 kg/m2 Dr. Valeriano Beasley Work Phone: 5(011)809-957863 [place] [address] 2022 12:59-0400 Body weight 89.[address] Valeriano Beasley Work Phone: 1(097)396-340963 [place] [address] 2022 12:59-0400 Diastolic blood pressure 76 mm[Hg] Dr. Valeriano Beasley Work Phone: 2(422)367-181463 [place] [address] 2022 12:59-0400 Heart rate 59 /min Dr. Valeriano Beasley Work Phone: 9(305)430-511130 [place] [address] 2022 12:59-0400 SaO2% (BldA) [Mass fraction] 94 % Dr. Valeriano Beasley Work Phone: 0(605)305-544663 [place] [address] 2022 12:59-0400 Systolic blood pressure 152 mm[Hg] Dr. Valeriano Beasley Work Phone: 6(037)706-248630 [place] [address] 10-12-2022 10:09-0400 Body temperature 97.2 [degF] Suzanna Dawson PA-C Work Phone: [facility] 10-12-2022 10:09-0400 Body weight 85.73 kg Suzanna Dawson PA-C Work Phone: [facility] 10-12-2022 10:09-0400 Diastolic blood pressure 80 mm[Hg] Suzanna Dawson PA-C Work Phone: [facility] 10-12-2022 10:09-0400 Heart rate 56 /min Suzanna Dawson PA-C Work Phone: [facility] 10-12-2022 10:09-0400 Respiratory rate 16 /min Suzannaselvin Dawson PA-C Work Phone: [facility] 10-12-2022 10:09-0400 Systolic blood pressure 136 mm[Hg] Suzanna Dawson PA-C Work Phone: [facility] 09-14-2022 14:41-0500 Body weight 88.91 kg Valeriano Beasley MD Work Phone: [facility] 09-14-2022 14:41-0500 Diastolic blood pressure 78 mm[Hg] Valeriano Beasley MD Work Phone: [facility] 09-14-2022 14:41-0500 Heart rate 58 /min Valeriano Beasley MD Work Phone: [facility] 09-14-2022 14:41-0500 Systolic blood pressure 118 mm[Hg] Valeriano Beasley MD Work Phone: [facility] 09-10-2022 11:00-0500 Body temperature 98.9 [degF] Dr. Valeriano Beasley Work Phone: [facility] 09-10-2022 11:00-0500 Diastolic blood pressure 85 mm[Hg] Dr. Valeriano Beasley Work Phone: [facility] 09-10-2022 11:00-0500 Heart rate 81 /min Dr. Valeriano Beasley Work Phone: [facility] 09-10-2022 11:00-0500 Respiratory rate 18 /min Dr. Valeriano Beasley Work Phone: [facility] 09-10-2022 11:00-0500 SaO2% (BldA) [Mass fraction] 95 % Dr. Valeriano Beasley Work Phone: [facility] 09-10-2022 11:00-0500 Systolic blood pressure 141 mm[Hg] Dr. Valeriano Beasley Work Phone: [facility] 09-10-2022 05:55-0500 Body weight 90.[address] Valeriano Beasley Work Phone: [facility] 09-06-2022 15:28-0500 Body height 177.[address] Valeriano Beasley Work Phone: [facility] 09-04-2022 17:45-0500 Inhaled oxygen flow rate 2 L/min Dr. Valeriano Beasley Work Phone: [facility] 09-02-2022 16:04-0500 Body mass index (BMI) [Ratio] 26.9 kg/m2 Dr. Valeriano Beasley Work Phone: [facility] 06-27-2022 08:46-0500 Body height 177.8 cm [facility] Work Phone: 06-27-2022 08:46-0500 Body weight 89.58 kg [facility] 05-25-2022 09:38-0400 Body weight 92.98 kg [facility] 04-25-2022 11:19-0400 Body height 177.8 cm [facility] Work Phone: 04-25-2022 11:19-0400 Body weight 90.71 kg [facility] 04-18-2022 15:36-0400 Diastolic blood pressure 105 mm[Hg] Valeriano Beasley MD Work Phone: [facility] 04-18-2022 15:36-0400 Systolic blood pressure 175 mm[Hg] Valeriano Beasley MD Work Phone: [facility] 04-18-2022 14:39-0400 Body height 174 cm Valeriano Beasley MD Work Phone: [facility] 04-18-2022 14:39-0400 Body weight 90.36 kg Valeriano Beasley MD Work Phone: [facility] 04-18-2022 14:39-0400 Heart rate 66 /min Valeriano Beasley MD Work Phone: [facility] 04-18-2022 14:39-0400 Respiratory rate 16 /min Valeriano Beasley MD Work Phone: [facility] 03-25-2022 15:31-0400 Body height 177.8 cm [facility] Work Phone: 03-25-2022 15:31-0400 Body weight 88.45 kg [facility] Work Phone: 03-25-2022 14:44-0400 Body mass index (BMI) [Ratio] 27.1 kg/m2 [facility] Work Phone: 03-25-2022 14:44-0400 Body temperature 98.7 [degF] [facility] Work Phone: 03-25-2022 14:44-0400 Diastolic blood pressure 80 mm[Hg] [facility] Work Phone: 03-25-2022 14:44-0400 Heart rate 56 /min [facility] Work Phone: 03-25-2022 14:44-0400 Respiratory rate 14 /min [facility] Work Phone: 03-25-2022 14:44-0400 SaO2% (BldA) [Mass fraction] 95 % [facility] Work Phone: 03-25-2022 14:44-0400 Systolic blood pressure 134 mm[Hg] [facility] Work Phone: 01-27-2022 14:00-0400 Diastolic blood pressure 80 mm[Hg] DR FRANKLIN NASH MD [address] [place] [address] 01-27-2022 14:00-0400 Heart rate 64 /min DR FRANKLIN NASH MD [address] [place] [address] 01-27-2022 14:00-0400 Mean blood pressure 97 mm[Hg] DR FRANKLIN NASH MD [address] [place] [address] 01-27-2022 14:00-0400 Systolic blood pressure 130 mm[Hg] DR FRANKLIN NASH MD [address] [place] [address] 01-27-2022 13:15-0400 Diastolic blood pressure 72 mm[Hg] DR FRANKLIN NASH MD [address] [place] [address] 01-27-2022 13:15-0400 Heart rate 65 /min DR FRANKLIN NASH MD [address] [place] [address] 01-27-2022 13:15-0400 Mean blood pressure 90 mm[Hg] DR FRANKLIN NASH MD [address] [place] [address] 01-27-2022 13:15-0400 Systolic blood pressure 127 mm[Hg] DR FRANKLIN NASH MD [address] [place] [address] 01-27-2022 13:00-0400 Diastolic blood pressure 75 mm[Hg] DR FRANKLIN NSAH MD [address] [place] [address] 01-27-2022 13:00-0400 Heart rate 66 /min DR FRANKLIN NASH MD [address] [place] [address] 01-27-2022 13:00-0400 Mean blood pressure 92 mm[Hg] DR FRANKLIN NASH MD [address] [place] [address] 01-27-2022 12:08-0400 Reason For Taking VItal Signs DR FRANKLIN NASH MD [address] [place] [address] 01-27-2022 12:08-0400 Respiratory rate 18 /min DR FRANKLIN NASH MD [address] [place] [address] 01-27-2022 11:24-0400 Reason For Taking VItal Signs DR FRANKLIN NASH MD [address] [place] [address] 01-27-2022 11:24-0400 Respiratory rate 16 /min DR FRANKLIN NASH MD [address] [place] [address] 01-27-2022 06:11-0400 Body height 177.[address] FRANKLIN NASH MD [address] [place] [address] 01-27-2022 06:11-0400 Body temperature 97.34 [degF] DR FRANKLIN NASH MD [address] [place] [address] 01-27-2022 06:11-0400 Body weight 88.[address] FRANKLIN NASH MD [address] [place] [address] 01-27-2022 06:11-0400 Body weight 28.12 kg/m2 DR FRANKLIN NASH MD [address] [place] [address] 01-27-2022 06:11-0400 diastolic 85 mm[Hg] DR FRANKLIN NASH MD [address] [place] [address] 01-27-2022 06:11-0400 Heart rate 56 /min DR FRANKLIN NASH MD [address] [place] [address] 01-27-2022 06:11-0400 Respiratory rate 16 /min DR FRANKLIN NASH MD [address] [place] [address] 01-27-2022 06:11-0400 systolic 149 mm[Hg] DR FRANKLIN NASH MD [address] [place] [address] 12-01-2021 10:25-0400 Diastolic blood pressure 78 mm[Hg] CHRISTINE EDWARDS MD [address] [place] [address] 12-01-2021 10:25-0400 Heart rate 85 /min CHRISTINE EDWARDS MD [facility] 12-01-2021 10:25-0400 Respiratory rate 20 /min CHRISTINE EDWARDS MD [facility] 12-01-2021 10:25-0400 Systolic blood pressure 142 mm[Hg] CHRISTINE EDWARDS MD [facility] 12-01-2021 10:18-0400 Heart rate 93 /min CHRISTINE EDWARDS MD [facility] 12-01-2021 08:01-0400 Heart rate 68 /min CHRISTINE EDWARDS MD [facility] 12-01-2021 06:26-0400 Body temperature 97.7 [degF] CHRISTINE EDWARDS MD [facility] 12-01-2021 06:26-0400 Diastolic blood pressure 62 mm[Hg] CHRISTINE EDWARDS MD [facility] 12-01-2021 06:26-0400 Reason For Taking VItal Signs CHRISTINE EDWARDS MD [facility] 12-01-2021 06:26-0400 Respiratory rate 20 /min CHRISTINE EDWARDS MD [facility] 12-01-2021 06:26-0400 Systolic blood pressure 130 mm[Hg] CHRISTINE EDWARDS MD [facility] 12-01-2021 04:04-0400 Diastolic blood pressure 70 mm[Hg] CHRISTINE EDWARDS MD [facility] 12-01-2021 04:04-0400 Mean blood pressure 89 mm[Hg] CHRISTINE EDWARDS MD [facility] 12-01-2021 04:04-0400 Reason For Taking VItal Signs CHRISTINE EDWARDS MD [facility] 12-01-2021 04:04-0400 Respiratory rate 20 /min CHRISTINE EDWARDS MD [facility] 12-01-2021 04:04-0400 Systolic blood pressure 128 mm[Hg] CHRISTINE EDWARDS MD [facility] 11-30-2021 22:06-0400 Body temperature 98.24 [degF] CHRISTINE EDWARDS MD [facility] 11-30-2021 22:06-0400 Mean blood pressure 103 mm[Hg] CHRISTINE EDWARDS MD [facility] 11-30-2021 22:06-0400 Reason For Taking VItal Signs CHRISTINE EDWARDS MD [facility] 11-30-2021 19:22-0400 Diastolic Blood Pressure NBP 82 1 CHRISTINE EDWARDS MD [facility] 11-30-2021 19:22-0400 Systolic Blood Pressure NBP 138 1 CHRISTINE EDWARDS MD [facility] 11-30-2021 19:01-0400 Body temperature 97.7 [degF] CHRISTINE EDWARDS MD [facility] 11-30-2021 19:01-0400 Mean blood pressure 95 mm[Hg] CHRISTINE EDWARDS MD [facility] 11-30-2021 13:20-0400 SaO2% (BldA) [Mass fraction] 96.3 % CHRISTINE EDWARDS MD [facility] 11-30-2021 11:33-0400 Heart rate 56 /min CHRISTINE EDWARDS MD [facility] 11-30-2021 09:52-0400 Heart rate 64 /min CHRISTINE EDWARDS MD [facility] 11-30-2021 07:29-0400 Heart rate 52 /min CHRISTINE EDWARDS MD [facility] 11-30-2021 02:55-0400 Diastolic Blood Pressure NBP 72 1 CHRISTINE EDWARDS MD [facility] 11-30-2021 02:55-0400 Mean blood pressure 85 mm[Hg] CHRISTNIE EDWARDS MD [facility] 11-30-2021 02:55-0400 Systolic Blood Pressure NBP 118 1 CHRISTINE EDWARDS MD [facility] 11-30-2021 02:22-0400 Diastolic Blood Pressure NBP 52 1 CHRISTINE EDWARDS MD [facility] 11-30-2021 02:22-0400 Mean blood pressure 68 mm[Hg] CHRISTINE EDWARDS MD [facility] 11-30-2021 02:22-0400 Systolic Blood Pressure NBP 104 1 CHRISTINE EDWARDS MD [facility] 11-30-2021 00:05-0400 Mean blood pressure 85 mm[Hg] CHRISTINE EDWARDS MD [facility] 11-29-2021 16:55-0400 Body height 177.8 cm CHRISTINE EDWARDS MD [facility] 11-29-2021 16:55-0400 Body weight 94.5 kg CHRISTINE EDWARDS MD [facility] 11-29-2021 16:55-0400 Body weight 29.89 kg/m2 CHRISTINE EDWARDS MD [facility] 11-29-2021 15:00-0400 Diastolic blood pressure 141 mm[Hg] DONAVON NUNEZ DO [facility] 11-29-2021 15:00-0400 Heart rate 59 /min DONAVON NUNEZ DO [facility] 11-29-2021 15:00-0400 Respiratory rate 20 /min DONAVON NUNEZ DO [facility] 11-29-2021 15:00-0400 Systolic blood pressure 155 mm[Hg] DONAVON NUNEZ DO [facility] 11-29-2021 14:56-0400 Body weight 95.4 kg DONAVON NUNEZ DO [facility] 11-29-2021 14:34-0400 Body temperature 98.6 [degF] DONAVON NUNEZ DO [facility] 11-29-2021 14:34-0400 Body weight 95.4 kg DONAVON NUNEZ DO [facility] 11-29-2021 14:34-0400 Diastolic blood pressure 97 mm[Hg] DONAVON NUNEZ DO [facility] 11-29-2021 14:34-0400 Heart rate 40 /min DONAVON NUNEZ DO [facility] 11-29-2021 14:34-0400 Respiratory rate 22 /min DONAVON NUNEZ DO [facility] 11-29-2021 14:34-0400 Systolic blood pressure 138 mm[Hg] DONAVON NUNEZ DO [facility] Encounters Encounter Date Encounter Type Care Provider Facility Start: 01-23-2025 Evaluation and management of inpatient Dr. Tessa Hampton DO -Progressive Care Unit Work Phone: Start: 01-23-2025 End: 01-23-2025 ambulatory Valeriano Beasley MD Work Phone: [facility] Comment on above: RECENT GI BLEED Rectal Bleeding Start: 01-01-2025 End: 01-01-2025 ambulatory VALERIANO Lance:[facility] Start: 01-01-2025 End: 01-01-2025 Patient encounter procedure Suzanna Dawson PA-C Work Phone: [facility] Comment on above: Hospital discharge f ollow-up (Primary Dx); Essential hypertension, benign Start: 12-30-2024 Non-patient / Non-visit Dr. Alexi Flanagan [facility] Work Phone: Start: 12-30-2024 Non-patient / Non-visit Dr. Homer avila DO -[facility] Start: 12-29-2024 Non-patient / Non-visit Dr. Alexi Flanagan [facility] Work Phone: Start: 12-28-2024 Non-patient / Non-visit Dr. Alexi Flanagan [facility] Work Phone: Start: 12-27-2024 Non-patient / Non-visit Dr. Flakita Florentino [facility] Work Phone: Start: 12-27-2024 ambulatory Flakita Florentino Facility:[facility] Start: 12-27-2024 End: 12-30-2024 Evaluation and management of inpatient Dr. Flakita Florentino -Intensive Care Unit Work Phone: Start: 12-26-2024 End: 12-26-2024 Chart abstracting Valeriano Beasley MD Work Phone: [facility] Comment on above: Outside Cardiology Start: 12-23-2024 End: 12-23-2024 Patient encounter procedure Patria Khanna MD Work Phone: Neurology Comment on above: Peripheral polyneuro mikala (Primary Dx); Low vitamin B12 level; Drinks beer Start: 12-23-2024 End: 12-23-2024 ambulatory PATRIA KHANNA JR Facility:[facility] Start: 11-14-2024 End: 01-14-2025 Follow-up encounter Nyla De Jesus DO Work Phone: Rheumatology Start: 11-12-2024 End: 11-12-2024 Chart abstracting Valeriano Beasley MD Work Phone: [facility] Comment on above: Outside Urology Start: 11-07-2024 End: 01-07-2025 Follow-up encounter Ni Sauceda APRN.CNP Work Phone: [facility] Comment on above: Results Start: 11-06-2024 ambulatory VALERIANO BEASLEY Facili ty:[facility] Start: 11-06-2024 End: 11-06-2024 Subsequent hospital visit by physician [facility] [place] [facility] Work Phone: Radiology Comment on above: Screening for abdomi nal aortic aneurysm [Z13.6] Start: 11-05-2024 End: 11-12-2024 Chart abstracting Flakita Pastor MA [facility] Comment on above: external document (L ab results) Start: 11-05-2024 End: 11-05-2024 Patient encounter procedure Estefany LAMBERT -[facility] Work Phone: Start: 11-05-2024 End: 11-05-[address] Valeriano Beasley MD Work Phone: [facility] Work Phone: Start: 11-05-2024 End: 11-05-2024 ambulatory Shubham Francis Facility:[facility] Start: 11-01-2024 End: 11-01-2024 Patient encounter procedure Ni Sauceda APRN.[employer] Work Phone: [facility] Comment on above: Essential hypertensi on, benign (Primary Dx); Alcoholic cirrhosis, unspecified whether ascites present (HCC); Advance directive discussed with patient; Valvular heart disease; Lumbosacral radiculopathy at L5; Mixed hyperlipidemia; Coronary artery disease due to lipid rich plaque; Low vitamin D level; Prostate disorder; Low serum vitamin B12; Medication management; Screening for abdominal aortic aneurysm Start: 11-01-2024 End: 11-01-2024 ambulatory VALERIANO BEASLEY Facility:[facility] Start: 10-30-2024 End: 10-30-2024 ambulatory VALERIANO BEASLEY Facility:[facility] Start: 10-29-2024 End: 10-30-2024 Follow-up encounter Stephanie Roy DO Work Phone: Hematology/Oncology Start: 10-23-2024 End: 10-23-2024 ambulatory VALERIANO BEASLEY Facility:[facility] Start: 10-23-2024 End: 10-23-2024 Subsequent hospital visit by physician Vonnie 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] Start: 10-23-2024 End: 10-23-2024 Chart abstracting Ganesh White MA [facility] Comment on above: Results Start: 10-23-2024 End: 10-23-2024 ambulatory Stephanie Roy DO Work Phone: Hematology/Oncology Comment on above: Monoclonal gammopath y (Primary Dx); Neuropathy - (NOS) Start: 10-23-2024 End: 10-23-2024 Patient encounter procedure Stephanie Roy DO Work Phone: Hematology/Oncology Start: 10-21-2024 End: 10-21-2024 ambulatory VALERIANO BEASLEY Facility:[facility] Start: 10-11-2024 End: 10-11-[address] Valeriano Beasley MD Work Phone: [facility] Work Phone: Start: 10-11-2024 End: 10-11-[address] Geovani Barron MD -Laboratory, Specimen Work Phone: Start: 10-11-2024 End: 10-11-2024 ambulatory Valeriano Beasley Facility:[facility] Start: 10-09-2024 Encounter for preprocedural cardiovascular examination Geovani Barron [facility] Start: 09-27-2024 End: 10-01-2024 Telephone encounter Stephanie Roy DO Work Phone: Hematology/Oncology Comment on above: Results Start: 09-26-2024 End: 09-26-[address] Valeriano Beasley MD Work Phone: [facility] Work Phone: Start: 09-26-2024 End: 09-26-[address] Geovani Barron MD -Pulmonary Services/Neurology Work Phone: Start: 09-25-2024 End: 09-26-2024 ambulatory Stephanie Jacksoni DO Work Phone: Hematology/Oncology Comment on above: Neuropathy - (NOS) ( Primary Dx) Start: 09-25-2024 End: 09-25-2024 Patient encounter procedure Stephanie Roy DO Work Phone: Hematology/Oncology Start: 09-24-2024 End: 09-24-2024 Chart abstracting Valeriano Beasley MD Work Phone: [facility] [place] Comment on above: Outside Imaging (Uro logy/) Start: 09-23-2024 End: 09-23-[address] Valeriano Beasley MD Work Phone: [facility] Work Phone: Start: 09-23-2024 End: 09-23-[address] Geovani Barron MD -Radiology, [facility] Work Phone: Start: 09-23-2024 End: 09-23-2024 ambulatory Valeriano Beasley Facility:[facility] Start: 09-19-2024 End: 09-19-[address] Shubham Blacno MD -[facility] Work Phone: Start: 09-19-2024 End: 09-19-2024 ambulatory Shubham Blanco Facility:[facility] Start: 09-18-2024 End: 09-18-2024 Chart abstracting Ganesh White MA [facility] Medicine [place] Comment on above: Results (Outside lab s ) Start: 09-17-2024 End: 09-17-2024 Chart abstracting Valeriano Beasley MD Work Phone: [facility] [place] Comment on above: Outside Ohvh-Lax-EIH Ordered Start: 09-13-2024 End: 09-13-2024 Chart abstracting Valeriano Beasley MD Work Phone: [facility] Comment on above: Outside Hpat-Gwe-BCT Ordered Start: 09-12-2024 End: 09-12-[address] Shubham Blanco MD -Laboratory Work Phone: Start: 09-12-2024 End: 09-12-2024 ambulatory Shubham Blanco Facility:[facility] Start: 09-07-2024 End: 09-07-2024 Chart abstracting Valeriano Beasley MD Work Phone: [facility] Comment on above: Outside Imaging Start: 09-06-2024 End: 09-06-[address] Shubham Blanco MD -Cat Scan, [facility] Work Phone: Start: 09-06-2024 End: 09-06-2024 ambulatory Shubham Blanco Facility:[facility] Start: 09-03-2024 End: 09-03-2024 ambulatory Nyla De Jesus DO Work Phone: Rheumatology Comment on above: Positive GALLO (antinu clear antibody) (Primary Dx); Ds DNA antibody positive; Neuropathy Start: 09-03-2024 End: 09-03-2024 Telemedicine consultation with patient Nyla De Jesus DO Work Phone: Rheumatology Start: 09-03-2024 End: 09-03-2024 Telephone encounter Patria Khanna MD Work Phone: Neurology Start: 09-02-2024 End: 09-03-2024 Follow-up encounter Patria Khanna MD Work Phone: Neurology Comment on above: Abnormal SPEP (Prima ry Dx) Start: 08-30-2024 End: 08-30-2024 ambulatory VALERIANO BEASLEY Facility:[facility] Start: 08-30-2024 End: 08-30-2024 Patient encounter procedure Patria Khanna MD Work Phone: Neurology Comment on above: Neuropathy, idiopath ic (Primary Dx); Abnormal SPEP; Positive GALLO (antinuclear antibody); Abnormality of gait; Numbness Start: 08-30-2024 End: 08-30-2024 ambulatory VALERIANO BEASLEY Facility:[facility] Start: 08-28-2024 End: 08-28-2024 Chart abstracting Valeriano Beasley MD Work Phone: [facility] [place] Comment on above: Outside Urology Start: 08-19-2024 End: 08-19-2024 ambulatory JASWINDER REDMOND Facility:[facility] Start: 08-19-2024 End: 08-19-2024 ambulatory VALERIANO BEASLEY Facility:[facility] Start: 08-19-2024 End: 08-19-2024 Office consultation new/estab patient 40 min Arun Christian DO Work Phone: Allergy Comment on above: Angioedema, subseque nt encounter Start: 07-31-2024 End: 07-31-2024 ambulatory VALERIANO BEASLEY Facility:[facility] Start: 07-31-2024 End: 07-31-2024 Patient encounter procedure Valeriano Beasley MD Work Phone: [facility] [place] Comment on above: Angioedema, subseque nt encounter (Primary Dx) Start: 07-19-2024 End: 07-19-2024 Chart abstracting Valeriano Beasley MD Work Phone: [facility] [place] Comment on above: ER Discharge Summary Refill Request Start: 07-18-2024 End: 07-18-2024 Emergency department patient visit Dr. Stan Gilbert DO -Emergency Department Work Phone: Start: 06-05-2024 End: 06-05-2024 Chart abstracting Valeriano Beasley MD Work Phone: [facility] [place] Comment on above: Outside Gastro Start: 06-04-2024 End: 06-04-2024 ambulatory Valeriano Beasley Facility:[facility] Start: 05-30-2024 End: 05-30-2024 Chart abstracting Valeriano Beasley MD Work Phone: [facility] [place] Start: 05-29-2024 End: 05-29-2024 ambulatory VALERIANO BEASLEY Facility:[facility] Start: 05-29-2024 End: 05-29-2024 Office outpatient visit 15 minutes Suzanna Dawson PA-C Work Phone: [facility] Comment on above: Essential hypertensi on, benign (Primary Dx) Start: 05-28-2024 End: 05-28-2024 Chart abstracting Valeriano Beasley MD Work Phone: [facility] Comment on above: Outside Urology Start: 05-20-2024 End: 05-21-2024 Telephone encounter Suzanna Dawson PA-C Work Phone: [facility] [place] Comment on above: Results Start: 05-16-2024 End: 05-16-2024 ambulatory VALERIANO BEASLEY Facility:[facility] Start: 05-14-2024 End: 05-20-2024 Telephone encounter Suzanna Dawson PA-C Work Phone: [facility] [place] Comment on above: Results Start: 05-14-2024 End: 05-14-2024 ambulatory Valeriano Beasley Facility:[facility] Start: 05-13-2024 End: 05-13-2024 Telephone encounter Valeriano Beasley MD Work Phone: [facility] Comment on above: Patient Question Start: 05-01-2024 End: 05-01-2024 Telephone encounter Valeriano Beasley MD Work Phone: [facility] Comment on above: Release Of Medical R ecords Start: 05-01-2024 End: 05-01-2024 ambulatory VALERIANO BEASLEY Facility:[facility] Start: 05-01-2024 End: 05-01-2024 Patient encounter procedure Suzanna Dawson PA-C Work Phone: [facility] Comment on above: Medicare annual well ness visit, subsequent (Primary Dx); Encounter for immunization; Essential hypertension, benign; Advance directive discussed with patient; Living will in place; 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; Valvular heart disease; Coronary artery disease due to lipid rich plaque; Heart murmur, systolic; Mixed hyperlipidemia; Low vitamin D level; Low serum vitamin B12; Gout without tophus; Overweight with body mass index (BMI) of 29 to 29.9 in adult; Elevated LFTs; Alcohol abuse; Elevated PSA Start: 04-17-2024 End: 04-17-2024 Chart abstracting Ganesh White MA [facility] [place] Comment on above: Consult (Outside Car diology /) Start: 04-15-2024 End: 04-15-2024 ambulatory Valeriano Beasley Facility:[facility] Start: 04-04-2024 End: 04-04-2024 ambulatory [facility] Facility:[facility] Start: 04-04-2024 End: 04-04-2024 Patient encounter procedure Ni Sauceda APRN.COMMERCIAL REVIEW APPRAISER Work Phone: [facility] [place] Comment on above: Essential hypertensi on, benign (Primary Dx) Start: 04-01-2024 End: 04-01-2024 Chart abstracting Ganesh White MA [facility] [place] Comment on above: ER F/U Start: 04-01-2024 End: 04-01-2024 Telephone encounter Ganesh White MA [facility] [place] Comment on above: Appointment Start: 03-29-2024 End: 03-29-2024 Emergency department patient visit Valeriano [facility] Facility:[facility] Start: 03-29-2024 End: 03-29-2024 [facility] Facility:[facility] Start: 03-29-2024 End: 03-29-2024 Patient encounter procedure Gardenia Villareal APRN.COMMERCIAL REVIEW APPRAISER Work Phone: [facility] Comment on above: Tongue swelling (Linda marilyn Dx) Start: 03-12-2024 ambulatory Valeriano Gale Facility :[facility] Start: 02-08-2024 End: 02-08-2024 Subsequent hospital visit by physician Analilia [facility] (I-Stat) Work Phone: Cat Scan Comment on above: Occlusion and stenos is of unspecified carotid artery [I65.29] Start: 02-08-2024 End: 02-08-2024 ambulatory PATRIA KHANNA JR Facility:[facility] Start: 02-06-2024 Telephone encounter Patria Khanna MD Work Phone: Neurology Comment on above: Results Start: 02-06-2024 End: 02-06-2024 ambulatory PATRIA KHANNA JR Facility:[facility] Start: 02-06-2024 End: 02-06-2024 Subsequent hospital visit by physician Mri [employer] [facility] (I-Stat/1.5t) Work Phone: Radiology Comment on above: Other symptoms and s igns involving the nervous system [R29.818] Start: 01-31-2024 Chart abstracting Valeriano lua MD Work Phone: [facility] [place] Comment on above: Outside Cardiology Start: 01-08-2024 Refill Valeriano solano MD Work Phone: [facility] [place] Comment on above: Refill Request Results Start: 01-01-2024 End: 01-01-2024 Patient encounter procedure Patria Khanna MD Work Phone: Neurology Comment on above: Balance problems (Pr imary Dx); Abnormality of gait; Numbness; Neuropathy; Other symptoms and signs involving the nervous system; History of CAD (coronary artery disease); History of coronary artery stent placement Start: 12-28-2023 Telephone encounter Valeriano Beasley MD Work Phone: [facility] [place] Comment on above: Patient Question Start: 12-19-2023 Chart abstracting Valeriano lua MD Work Phone: [facility] [place] Comment on above: Ext / Nuclear Stress Test Start: 10-17-2023 Telephone encounter Valeriano Beasley MD Work Phone: [facility] [place] Comment on above: Orders (labs) Start: 10-14-2023 ambulatory Genny Tsai MA [facility] Start: 10-14-2023 Patient encounter procedure [facility] [place] Comment on above: Population Health Na vigation Outreach ([facility] Annual Wellness Visit ) Start: 10-03-2023 Telephone encounter Valeriano Beasley MD Work Phone: [facility] [place] Comment on above: Orders Start: 09-29-2023 Chart abstracting Valeriano lua MD Work Phone: [facility] [place] Comment on above: Outside Echo ([place]) Start: 09-28-2023 Non-patient / Non-visit Dr. William Beasley Work Phone: [facility] Work Phone: Start: 09-28-2023 Non-patient / Non-visit Dr. [facility] Start: 09-28-2023 End: 09-28-[address] Valeriano Beasley Work Phone: [facility] Work Phone: Start: 09-28-2023 End: 09-28-[address] [facility]: Start: 09-25-2023 Refill Valeriano solano MD Work Phone: [facility] Comment on above: Refill Request Start: 09-07-2023 Chart abstracting Valeriano lua MD Work Phone: [facility] Comment on above: [facility] (labs) Start: 09-06-2023 Chart abstracting Valeriano lua MD Work Phone: [facility] Comment on above: Outside Cardiology ( labs) Start: 09-05-2023 End: 09-05-[address] Valeriano Beasley Work Phone: [facility] Work Phone: Start: 09-05-2023 End: 09-05-[address] Valeriano Beasley Work Phone: [facility] Work Phone: Start: 09-04-2023 Chart abstracting Valeriano lua MD Work Phone: [facility] Comment on above: outside imaging Start: 09-01-2023 Chart abstracting Valeriano lua MD Work Phone: [facility] Comment on above: Outside Orthopedics Start: 09-01-2023 Telephone encounter Valeriano Beasley MD Work Phone: Radiology Start: 09-01-2023 End: 09-01-[address] Valeriano Beasley Work Phone: [facility] Work Phone: Start: 08-29-2023 Telephone encounter Valeriano Beasley MD Work Phone: [facility] [place] Comment on above: Results Start: 08-28-2023 End: 08-28-2023 Subsequent hospital visit by physician Ct [facility] (I-Stat) Work Phone: Cat Scan Comment on above: Other specified diso rders of kidney and ureter [N28.89] Start: 08-25-2023 ambulatory Kirsten Denny MA [facility] [place] Comment on above: Population Health Na vigation Outreach ([facility] AWV) Start: 08-21-2023 Telephone encounter Valeriano Beasley MD Work Phone: [facility] [place] Comment on above: Results Start: 05-26-2023 Chart abstracting Valeriano lua MD Work Phone: [facility] [place] Comment on above: Results (EMG ) Start: 05-25-2023 Non-patient / Non-visit Dr. William Beasley Work Phone: [facility] Start: 05-25-2023 End: 05-25-[address] Valeriano Beasley Work Phone: [facility] Work Phone: Start: 05-25-2023 End: 05-25-[address] Valeriano Beasley Work Phone: [facility]-Pulmonary Services/Neurology Work Phone: Start: 05-18-2023 End: 05-18-2023 Patient encounter procedure Valeriano Beasley MD Work Phone: [facility] [place] Comment on above: Essential hypertensi on, benign (Primary Dx); Low serum vitamin B12; Anxiety Start: 04-20-2023 End: 04-20-2023 Patient encounter procedure Valeriano Beasley MD Work Phone: [facility] Comment on above: Medicare annual [facility] visit, subsequent (Primary Dx); Essential hypertension, benign; Mixed hyperlipidemia; Coronary artery disease due to lipid rich plaque; Anxiety; Situational depression; Alcohol abuse; Gout without tophus; Low vitamin D level; Elevated PSA; Balance problems; Numbness and tingling of both feet; Atrophy of muscle of right shoulder; Atrophy of muscle of other site; Advance directive discussed with patient; Need for vaccination; Excessive ear wax, right Start: 01-05-2023 Chart abstracting Valeriano lua MD Work Phone: [facility] Comment on above: Outside GI Start: 12-20-2022 ambulatory Valeriano solano MD Work Phone: [facility] Start: 12-09-2022 End: 12-09-[address] Valeriano Beasley Work Phone: [facility] Work Phone: Start: 12-09-2022 End: 12-09-[address] Valeriano Beasley Work Phone: [facility] Start: 11-10-2022 Refill Valeriano solano MD Work Phone: [facility] Comment on above: Refill Request Refill Request (This is a short term to local pharmacy and a copy of the 90 sent to mail order.) Start: 10-20-2022 Chart abstracting Valeriano lua MD Work Phone: [facility] Comment on above: Consult (GI ) Start: 2022 End: [address] Valeriano Beasley Work Phone: [facility] Start: 10-13-2022 Telephone encounter Suzanna park PA-C Work Phone: [facility] Comment on above: Results Start: 10-12-2022 End: 10-12-2022 Patient encounter procedure Suzanna Dawson PA-C Work Phone: [facility] Comment on above: Essential hypertensi on, benign (Primary Dx); Mixed hyperlipidemia; NSTEMI (non-ST elevated myocardial infarction) (HCC); Coronary artery disease due to lipid rich plaque; AVM (arteriovenous malformation) of colon; Situational depression; Alcohol abuse; Anxiety; Elevated PSA; Lower GI bleed; Anemia, unspecified type; Prostate disorder; Low vitamin D level; Gout without tophus Start: 09-21-2022 Non-patient / Non-visit Dr. William Beasley Work Phone: [facility] Start: 09-15-2022 Telephone encounter Valeriano Beasley MD Work Phone: [facility] Comment on above: Results Start: 09-14-2022 End: 09-14-2022 Patient encounter procedure Valeriano Beasley MD Work Phone: [facility] Comment on above: Lower GI bleed (Prim [place] Dx); Situational depression; AVM (arteriovenous malformation) of colon; Alcohol abuse; H/O non-ST elevation myocardial infarction (NSTEMI); Mixed hyperlipidemia Start: 09-10-2022 ambulatory Valeriano solano MD Work Phone: [facility] Start: 09-10-2022 Follow-up encounter Valeriano Beasley MD Work Phone: [facility] Comment on above: [facility] Start: 09-10-2022 Non-patient / Non-visit Dr. William Beasley Work Phone: [facility] Start: 09-10-2022 Non-patient / Non-visit Dr. William Beasley Work Phone: [facility] Start: 09-09-2022 Non-patient / Non-visit Dr. William Beasley Work Phone: [facility] Start: 09-08-2022 Non-patient / Non-visit Dr. William Beasley Work Phone: [facility] Start: 09-08-2022 Non-patient / Non-visit Dr. William Beasley Work Phone: [facility] Start: 09-07-2022 Non-patient / Non-visit Dr. William Beasley Work Phone: [facility] Start: 09-07-2022 Non-patient / Non-visit Dr. William Beasley Work Phone: [facility] Start: 09-06-2022 Non-patient / Non-visit Dr. William Beasley Work Phone: [facility] Start: 09-06-2022 Non-patient / Non-visit Dr. William Beasley Work Phone: [facility] Start: 09-06-2022 Non-patient / Non-visit Dr. William Beasley Work Phone: [facility] Start: 09-05-2022 Non-patient / Non-visit Dr. William Beasley Work Phone: [facility] Start: 09-05-2022 Non-patient / Non-visit Dr. William Beasley Work Phone: [facility] Start: 09-05-2022 Chart abstracting Valeriano lua MD Work Phone: [facility] [place] Comment on above: Consult (Consult [facility] ) Results (EGD results - [facility] ) Start: 09-05-2022 Non-patient / Non-visit Dr. William Beasley Work Phone: [facility] Start: 09-04-2022 Non-patient / Non-visit Dr. William Beasley Work Phone: [facility] Start: 09-04-2022 Non-patient / Non-visit Dr. William Beasley Work Phone: [facility] Start: 09-04-2022 Non-patient / Non-visit Dr. William Beasley Work Phone: [facility] Start: 09-03-2022 Non-patient / Non-visit Dr. William Beasley Work Phone: [facility] Start: 09-02-2022 End: 09-02-2022 Non-patient / Non-visit Dr. Valeriano Beasley Work Phone: [facility] Start: 09-02-2022 Non-patient / Non-visit Dr. William Beasley Work Phone: [facility] Start: 09-02-2022 End: 09-10-2022 Evaluation and management of inpatient Dr. Valeriano Beasley Work Phone: [facility]-Progressive Care Unit Start: 06-27-2022 End: 07-23-2022 ambulatory [facility] Work Phone: Start: 06-27-2022 End: 07-23-2022 Discharged Recurring [facility]-Cardiac Rehab Start: 06-22-2022 End: 06-22-2022 Discharged Recurring [facility] Start: 05-23-2022 End: 05-23-2022 ambulatory [facility] Work Phone: Start: 05-23-2022 End: 05-23-2022 Discharged Recurring [facility]-Cardiac Rehab Start: 04-22-2022 End: 04-22-2022 ambulatory [facility] Work Phone: Start: 04-22-2022 End: 04-22-2022 Discharged Recurring [facility]Cardiac [facility] Start: 04-18-2022 End: 04-18-2022 Patient encounter procedure Valeriano Beasley MD Work Phone: [facility] [place] Comment on above: Medicare annual well ness visit, subsequent (Primary Dx); Essential hypertension, benign; Mixed hyperlipidemia; Coronary artery disease due to lipid rich plaque; Anxiety; Low vitamin D level; Gout without tophus; Elevated PSA; Living will in place; Advance directive discussed with patient Start: 04-12-2022 Telephone encounter Valeriano Beasley MD Work Phone: [facility] [place] Comment on above: Orders Start: 03-30-2022 Registered Recurring [facility] Start: 03-25-2022 End: 03-25-2022 ambulatory [facility] Work Phone: Start: 03-25-2022 End: 03-25-2022 Patient encounter procedure [facility] Start: 01-29-2022 ambulatory TESSA GUZMAN MD Facili ty:A Start: 01-27-2022 End: 01-27-[address] FRANKLIN NASH MD Facility:A Start: 01-27-2022 End: 01-27-[address] FRANKLIN NASH MD [facility] Start: 01-18-2022 ambulatory TESSA GUZMAN MD Facili ty:A Start: 01-01-2022 Orders Only Tessa Donato DO Work Phone: [facility] Comment on above: Myocardial infarctio n involving left anterior descending (LAD) coronary artery, unspecified [place] type (HCC) (Primary Dx) Start: 12-31-2021 Telephone encounter Celestine anthony MD Work Phone: Cardiothoracic Comment on above: Insurance Authorizat ion Start: 12-06-2021 Patient encounter procedure Celestine Talavera MD Work Phone: [facility] Work Phone: Start: 12-02-2021 Telephone encounter Ganesh White MA [facility] [place] Comment on above: Appointment Start: 11-29-2021 End: 12-01-2021 Evaluation and management of inpatient CHRISTINE EDWARDS MD [facility] Start: 11-29-2021 End: 11-29-2021 Emergency department [facility] Start: 03-15-2021 Patient encounter procedure Ganesh White MA [facility] Work Phone: Procedures Date Procedure Procedure Detail Performing Clinician Start: 01-23-2025 Urnls dip stick/tablet reagent auto microscopy Dr. Valeriano Beasley MD Work Phone: Start: 01-23-[address] Gabriele Beasley MD Work Phone: Start: 12-30-[address] Gabriele Beasley MD Work Phone: Start: 12-29-[address] Valeriano Beasley MD Work Phone: Start: 12-29-2024 SARS-CoV-2, Influenza & RSV (PCR) Dr. William Beasley MD Work Phone: Start: 12-29-2024 Carbon dioxide measurement, partial pressure Dr. Valeriano Beasley MD Work Phone: Start: 12-29-2024 Gases blood o2 saturation only direct reid Dr. Valeriano Beasley MD Work Phone: Start: 12-29-2024 Measurement of partial pressure of oxygen in blood Dr. Valeriano Beasley MD Work Phone: Start: 12-29-[address] Valeriano Beasley MD Work Phone: Start: 12-29-2024 Plain chest X-ray Dr. Valeriano Beasley MD Work Phone: Start: 12-29-2024 Hepatitis A virus antibody, IgM type Dr. Valeriano Beasley MD Work Phone: Comment on above: A negative anti-HAV IgM result suggests no recent orcurrent HAV infection. Start: 12-29-2024 Hepatitis B core antibody measurement, IgM type Dr. Valeriano Beasley MD Work Phone: Start: 12-29-2024 Hepatitis C antibody measurement Dr. Jett Beasley MD Work Phone: Start: 12-28-[address] Valeriano Beasley MD Work Phone: Start: 12-28-[address] Valeriano Beasley MD Work Phone: Start: 12-28-[address] Dalila Beasley MD Work Phone: Start: 12-28-2024 Serum inorganic phosphate measurement Dr. Valeriano Beasley MD Work Phone: Start: 12-27-2024 Carbon dioxide measurement, partial pressure Dr. Valeriano Beasley MD Work Phone: Start: 12-27-2024 Gases blood o2 saturation only direct reid Dr. Valeriano Beasley MD Work Phone: Start: 12-27-2024 Measurement of partial pressure of oxygen in blood Dr. Valeriano Beasley MD Work Phone: Start: 12-27-[address] Valeriano Beasley MD Work Phone: Start: 12-27-[address] Valeriano Beasley MD Work Phone: Start: 12-27-[address] Dalila Beasley MD Work Phone: Start: 12-27-2024 Plain chest X-ray Dr. Valeriano Beasley MD Work Phone: Start: 12-27-[address] Gabriele Beasley MD Work Phone: Start: 11-06-2024 Us abdominal aorta real time screen study aaa Ni Sauceda APRN.COMMERCIAL REVIEW APPRAISER Work Phone: Start: 10-30-2024 Lipid 1996 panel - Serum or Plasma Ni Sauceda APRN.COMMERCIAL REVIEW APPRAISER Work Phone: Start: 10-11-2024 Cholesterol serum/whole blood total Dr. Valeriano Beasley MD Work Phone: Comment on above: Test not performed Start: 10-11-2024 External camera medical photography Dr. Valeriano Beasley MD Work Phone: Comment on above: Photograph will follow under a separate cover Start: 09-23-2024 Plain X-ray abdomen Dr. Valeriano Beasley MD Work Phone: Start: 09-12-2024 Nbanm-5-Rbgdjzdxgui measurement Dr. Jae Beasley MD Work Phone: Comment on above: [employer] Electrochemiluminescen ce Immunoassay(ECLIA)Values obtained with different assay methods or kits cannotbe used interchangeably. Results cannot be interpreted asabsolute evidence of the presence or absence of malignantdisease.This test is not interpretable in females. Start: 09-12-[address] Valeriano Beasley MD Work Phone: Comment on above: Performed at: [facility] [place] [id number] Director: José Miguel Alba PhD, Phone: [phone] Start: 09-12-2024 Antibody to centromere measurement Dr. Valeriano Beasley MD Work Phone: Comment on above: Test not performed Start: 09-12-2024 Antibody to extractable nuclear antigen measurement Dr. Valeriano Beasley MD Work Phone: Comment on above: Test not performed Start: 09-12-2024 Antibody to FRANCIA-[address] Valeriano Beasley MD Work Phone: Comment on above: Test not performed Start: 09-12-2024 Antibody to lupus La protein measurement Dr. Valeriano Beasley MD Work Phone: Comment on above: Test not performed Start: 09-12-2024 Antibody to SS-A measurement Dr. Valeriano Beasley MD Work Phone: Comment on above: Test not performed Start: 09-12-2024 Assay of phosphorus inorganic Dr. Dalila Beasley MD Work Phone: Start: 09-12-[address] Valeriano peña MD Work Phone: Comment on above: Test not performed Start: 09-12-[address] Valeriano lua MD Work Phone: Start: 09-12-2024 Copper measurement, serum Dr. Valeriano lua MD Work Phone: Comment on above: Detection Limit = 5 Start: 09-12-[address] Valeriano zee MD Work Phone: Comment on above: Performed at: - [facility] [id number] Director: José Miguel Alba PhD, Phone: [phone] at: - [facility] [id number] Director: Zafar Browne MD, Phone: [phone] Start: 09-12-2024 Measurement of renal function Dr. Dalila Beasley MD Work Phone: Comment on above: GFR Calc Start: 09-12-2024 SALES TRAINING COORDINATOR antibody measurement Dr. Valeriano peña MD Work Phone: Comment on above: Test not performed Start: 09-12-2024 Total iron binding capacity measurement Dr. Valeriano Beasley MD Work Phone: Start: 09-06-2024 Computed tomography of abdomen and pelvis with contrast Dr. Valeriano Beasley MD Work Phone: Start: 05-01-2024 PFIZER-BIONTECH COVID-19 VACCINE AGE 12+ YR (COMIRNATY) Suzanna Dawson PA-C Work Phone: Start: 04-04-2024 Lipid 1996 panel - Serum or Plasma Ganesh White MA Start: 02-08-2024 Ct angiography head w/contrast/noncontrast Patria Khanna MD Work Phone: Start: 02-08-2024 Ct angiography neck w/contrast/noncontrast Patria Khanna MD Work Phone: Start: 02-06-2024 Mra neck w/o contrst material Patria Khanna MD Work Phone: Start: 10-17-2023 Lipid 1996 panel - Serum or Plasma Valeriano Beasley MD Work Phone: Start: 09-01-2023 X-ray of lumbosacral spine Dr. Valeriano zee Work Phone: Start: 04-20-2023 INFLUENZA VACCINE, PRSV FREE, AGE 65+ YR, HIGH DOSE, QUADRIVALENT (FLUZONE HIGH-DOSE) Valeriano Beasley MD Work Phone: Start: 04-14-2023 Lipid 1996 panel - Serum or Plasma Valeriano Beasley MD Work Phone: Start: 12-13-2022 CBC W/DIFF/PLT (EXTERNAL LAB RALF) [facility] Start: 12-13-2022 FERRITIN BLD [facility] Start: 12-13-2022 IRON PANEL (OUTSIDE) [facility] Start: 09-05-2022 Colonoscopy Valeriano Beasley MD Work Phone: Start: 09-04-[address] Valeriano Beasley Work Phone: Start: 09-03-2022 Computed tomography of abdomen and pelvis with intravenous contrast Dr. Valeriano Beasley Work Phone: Start: 09-03-[address] Valeriano Beasley Work Phone: Start: 01-27-[address] FRANKLIN NASH MD Start: 11-30-[address] FRANKLIN NASH MD Comment on above: Summary: 1. Left ventricle: The cavity size is normal. Wall thickness is mildly increased. Systolic function is at the lower limits of normal by visual assessment. The estimated ejection fraction is 50-55%. Although no diagnostic regional wall motion abnormality is identified, this possibility cannot be completely excluded on the basis of this study. Grade I diastolic dysfunction. 2. Ventricular septum: Thickness is mildly increased. 3. Aortic valve: There is no stenosis. There is no significant regurgitation. The mean systolic gradient is 7 mm Hg. The LVOT to aortic valve VTI ratio is 0.52. 4. Mitral valve: There is no evidence for stenosis. There is mild regurgitation. 5. Left atrium: The atrium is mildly dilated. 6. Right ventricle: The RV systolic pressure by Doppler is 24 mm Hg. Start: 11-29-[address] FRANKLIN NASH MD Comment on above: 100% occluded RCA - Culprit for clinical presentation - s/p PCI with one MIRANDA placement. Severe residual disease in LM, LAD and LCX. Discussed with in label machine operator - Will consult him for CABG in 6 weeks time Start: 03-24-2016 Colonoscopy Ganesh White MA Colonoscopy DR FRANKLIN NASH MD Enteric Bacteriology Dr. Jett Beasley Work Phone: History of placement of stent for coronary artery disease History of coronary artery stent placement Patria Khanna MD Work Phone: Lactoferrin measurement Dr. Valeriano Beasley Work Phone: Nucleic acid assay Dr. Gabriele Beasley Work Phone: Plan of Treatment Date Care Activity Detail Author Start: 11-06-2034 Urine microalbumin profile DTaP,Tdap,Td Vaccine (3 - Td or Tdap) [facility] Start: 10-30-2029 Lipid panel Lipid Screening [facility] Start: 04-04-2029 Lipid panel Lipid Screening [facility] Start: 10-16-2028 Lipid panel Lipid Screening [facility] Start: 04-14-2028 Lipid 1996 panel - Serum or Plasma Lipid Screening [facility] Start: 04-14-2028 Lipid panel Lipid Screening [facility] Start: 10-31-2027 Diabetes Screening Diabetes Screening [facility] Start: 10-06-2027 LIPID SCREEN LIPID SCREEN [facility] Start: 09-26-2027 Diabetes Screening Diabetes Screening [facility] Start: 09-14-2027 LIPID SCREEN LIPID SCREEN [facility] Start: 04-13-2027 LIPID SCREEN LIPID SCREEN [facility] Start: 04-04-2027 Diabetes Screening Diabetes Screening [facility] Start: 10-16-2026 Diabetes Screening Diabetes Screening [facility] Start: 04-14-2026 Diabetes Screening Diabetes Screening [facility] Start: 03-24-2026 Colonoscopy COLONOSCOPY [facility] Start: 03-24-2026 COLORECTAL CANCER SCREENING COLORECTAL CANCER SCREENING [facility] Start: 03-15-2026 LIPID SCREEN LIPID SCREEN [facility] Start: 01-01-2026 Annual PCP Team Chronic Disease Visit Annual PCP Team Chronic Disease Visit [facility] Start: 11-01-2025 Annual PCP Team Chronic Disease Visit Annual PCP Team Chronic Disease Visit [facility] Start: 11-01-2025 BP Controlled (<130/80) BP Controlled (<130/80) [facility] in Start: 11-01-2025 Covid-19 Vaccine () Covid-19 Vaccine () [facility] Comment on above: Postponed from 10/30/2024 (Declined at t his time) Start: 11-01-2025 Hepatitis A Vaccine (1 of 2 - Risk 2-dose series) Hepatitis A Vaccine (1 of 2 - Risk 2-dose series) [facility] Comment on above: Postponed from 1969 (Declined at t his time) Start: 11-01-2025 Hepatitis B Vaccine (1 of 3 - Risk 3-dose series) Hepatitis B Vaccine (1 of 3 - Risk 3-dose series) [facility] Comment on above: Postponed from 2010 (Declined at t his time) Start: 11-01-2025 RSV Vaccine (1 - Risk 60-74 years 1-dose series) RSV Vaccine (1 - Risk 60-74 years 1-dose series) [facility] Comment on above: Postponed from 2010 (Declined at t his time) Start: 11-01-2025 Shingrix Vaccine (1 of 2) Shingrix Vaccine (1 of 2) [facility] Comment on above: Postponed from 2000 (Declined at t his time) Start: 11-01-2025 Urine microalbumin profile DTaP,Tdap,Td Vaccine (2 - Td or Tdap) [facility] Comment on above: Postponed from 03/04/2018 (Declined at t his time) Start: 10-30-2025 Hepatitis B surface antibody level LDL Cholesterol [facility] Start: 10-23-2025 BP Controlled (<130/80) BP Controlled (<130/80) [facility] Start: 2025 RSV Vaccine (1 - 1-dose 75+ series) RSV Vaccine (1 - 1-dose 75+ series) [facility] Start: 09-14-2025 DIABETES SCREEN DIABETES SCREEN [facility] Start: 09-05-2025 Colonoscopy COLONOSCOPY [facility] Start: 09-05-2025 COLORECTAL CANCER SCREENING COLORECTAL CANCER SCREENING [facility] Start: 09-05-2025 Screening for malignant neoplasm of colon [facility] Start: 08-19-2025 BP Controlled (<130/80) BP Controlled (<130/80) [facility] Start: 07-31-2025 Annual PCP Team Chronic Disease Visit Annual PCP Team Chronic Disease Visit [facility] Start: 07-31-2025 BP Controlled (<130/80) BP Controlled (<130/80) [facility] Start: 05-29-2025 Annual PCP Team Chronic Disease Visit Annual PCP Team Chronic Disease Visit [facility] Start: 05-29-2025 BP Controlled (<130/80) BP Controlled (<130/80) [facility] Start: 05-06-2025 End: 05-06-2025 Patient encounter procedure 05/06/2025 1:40 PM EDT Office Visit [facility] [place] [address] [place] [address] Valeriano Beasley MD [address] [place] [address] [phone] medicare wellness [facility] [place] Comment on above: medicare wellness Start: 05-01-2025 Annual PCP Team Chronic Disease Visit Annual PCP Team Chronic Disease Visit [facility] Start: 05-01-2025 BP Controlled (<130/80) BP Controlled (<130/80) [facility] Start: 04-24-2025 End: 04-24-2025 ambulatory [place] [facility] Comment on above: CBC/CMP/Myeloma labs with urine* OV* Start: 04-16-2025 End: 04-16-2025 Patient encounter procedure 04/16/2025 11:30 AM EDT Office Visit Neurology [address] [place] [address] Tayler Ellis PA-C [address] [place] [address] 3 month follow up, Neuropathy - Gabapentin Neurology Comment on above: 3 month follow up, Neuropathy - Gabapent in Start: 04-13-2025 DIABETES SCREEN DIABETES SCREEN [facility] Start: 04-04-2025 Annual PCP Team Chronic Disease Visit Annual PCP Team Chronic Disease Visit [facility] Start: 04-04-2025 Hepatitis B surface antibody level LDL Cholesterol [facility] Start: 03-24-2025 Influenza vaccination Influenza Vaccine (#1) [facility] Start: 01-23-2025 Admission procedure [facility] Start: 01-23-2025 Verification routine [facility] Start: 01-23-2025 Hospital admission, emergency, from emergency room, medical nature [facility] Start: 12-30-2024 Patient discharge [facility] Start: 12-30-2024 Care planning and problem solving actions [facility] Start: 12-29-2024 Bacteria identified in Blood by Culture Blood Culture [facility] Start: 12-29-2024 [facility] Start: 12-29-2024 Following clinical pathway protocol [facility] Start: 12-29-2024 Oxygen therapy [facility] Start: 12-29-2024 [facility] Start: 12-28-2024 Microscopic observation [Identifier] in Unspecified specimen by Gram stain [facility] Start: 12-28-2024 Respiratory microbial culture Respiratory Culture [facility] Start: 12-27-2024 Following clinical pathway protocol [facility] Start: 12-27-2024 Assessment of risk of venous thromboembolism [facility] Start: 12-27-2024 Consultation [facility] Start: 12-27-2024 Continuous pulse oximetry [facility] Start: 12-27-2024 Elevation of head of bed [facility] Start: 12-27-2024 Insertion of catheter into peripheral vein [facility] Start: 12-27-2024 Measuring intake and output [facility] Start: 12-27-2024 Patient referral to dietitian [facility] Start: 12-27-2024 Providing care according to standard [facility] Start: 12-27-2024 Referral to service [facility] Start: 12-27-2024 Removal of urinary catheter [facility] Start: 12-27-2024 Vital signs measurements [facility] Start: 12-27-2024 [facility] Start: 12-27-2024 Hospital admission, emergency, from emergency room, medical nature [facility] Start: 12-27-2024 Verification routine [facility] Start: 12-27-2024 Airway suction technique [facility] Start: 12-27-2024 Microscopic observation [Identifier] in Unspecified specimen by Gram stain [facility] Start: 12-27-2024 Respiratory Culture Respiratory Culture [facility] Start: 12-27-2024 Admission procedure [facility] Start: 12-27-2024 Creatine kinase [Enzymatic activity/volume] in Serum or Plasma [facility] Start: 12-27-2024 Triglycerides measurement [facility] Start: 12-27-2024 End: 12-28-2024 [facility] Start: 12-27-2024 [facility] Start: 12-23-2024 End: 03-24-2025 Cobalamin (Vitamin B12) [Mass/volume] in Serum or Plasma [facility] Work Phone: Comment on above: Expected: 12/23/2024, Expires: Start: 12-23-2024 End: 12-23-2024 Patient encounter procedure 12/23/2024 2:00 PM EDT Office Visit Neurology [address] [place] [id number] Patria Khanna Jr., MD [address] [place] [address] 8 WEEK FOLLOW UP Neurology Comment on above: 8 WEEK FOLLOW UP Start: 11-06-2024 End: 11-06-2024 Patient encounter procedure 11/06/2024 11:30 AM EDT Appointment Radiology [address] [place] [address] Dx: Screening for abdominal aortic aneurysm [Z13.6] Radiology Comment on above: Dx: Screening for abdominal aortic aneur ysm [Z13.6] Start: 11-01-2024 End: 11-01-2024 Patient encounter procedure 11/01/2024 11:00 AM EDT Office Visit [facility] [address] [facility] [place] [address] Ni Sauceda APRN.COMMERCIAL REVIEW APPRAISER [address] [facility] [place] [address] 6 month routine follow up [facility] Comment on above: 6 month routine follow up Start: 10-30-2024 End: 01-29-2025 25-hydroxyvitamin D3 [Mass/volume] in Serum or Plasma VITAMIN D 25 HYDROXY Lab Routine Low vitamin D level Expected: 10/30/2024, Expires: 01/29/2025 [facility] Comment on above: Expected: 10/30/2024, Expires: Start: 10-30-2024 End: 01-29-2025 CBC W Auto Differential panel - Blood COMPLETE BLOOD COUNT AND DIFFERENTIAL Lab Routine Essential hypertension, benign Expected: 10/30/2024, Expires: 01/29/2025 [facility] Comment on above: Expected: 10/30/2024, Expires: Start: 10-30-2024 End: 01-29-2025 Cobalamin (Vitamin B12) [Mass/volume] in Serum or Plasma VITAMIN B12 Lab Routine Low serum vitamin B12 Expected: 10/30/2024, Expires: 01/29/2025 [facility] Comment on above: Expected: 10/30/2024, Expires: Start: 10-30-2024 End: 01-29-2025 Comprehensive metabolic 2000 panel - Serum or Plasma COMPREHENSIVE METABOLIC PANEL Lab Routine Essential hypertension, benign Expected: 10/30/2024, Expires: 01/29/2025 [facility] Comment on above: Expected: 10/30/2024, Expires: Start: 10-30-2024 Covid-19 Vaccine () Covid-19 Vaccine () [facility] Start: 10-30-2024 End: 01-29-2025 LIPID PANEL, NONFASTING LIPID PANEL, NONFASTING Lab Routine Mixed hyperlipidemia Expected: 10/30/2024, Expires: 01/29/2025 [facility] Comment on above: Expected: 10/30/2024, Expires: Start: 10-30-2024 End: 01-29-2025 Prostate Specific Ag Free [Mass/volume] in Serum or Plasma PROSTATE SPECIFIC ANTIGEN, FREE Lab Routine Elevated PSA Expected: 10/30/2024, Expires: 01/29/2025 [facility] Comment on above: Expected: 10/30/2024, Expires: Start: 10-30-2024 End: 01-29-2025 Urate [Mass/volume] in Serum or Plasma URIC ACID Lab Routine Gout without tophus Expected: 10/30/2024, Expires: 01/29/2025 [facility] Work Phone: Comment on above: Expected: 10/30/2024, Expires: Start: 10-30-2024 End: 01-29-2025 Urinalysis complete panel - Urine URINALYSIS, WITH MICROSCOPIC Lab Routine Essential hypertension, benign Expected: 10/30/2024, Expires: 01/29/2025 [facility] Comment on above: Expected: 10/30/2024, Expires: Start: 10-30-2024 End: 10-30-2024 ambulatory 10/30/2024 11:00 AM EDT Results Only [facility] [address] [address] Lab [facility] Comment on above: Lab Start: 10-23-2024 End: 10-23-2024 ambulatory 10/23/2024 11:10 AM EDT Visit (SP) Office Hematology/Oncology [address] [place] [address] Stephanie Roy DO [address] [place] [address] OV/LAB&24 HR URINE 10/21* Hematology/Oncology Comment on above: OV/LAB&24 HR URINE 10/21* Start: 10-21-2024 End: 10-21-2024 ambulatory 10/21/2024 11:00 AM EDT Results Only [place] [facility] [address] [place] [address] LAB/24 HR URINE [facility] Comment on above: LAB/24 HR URINE Start: 10-18-2024 Annual PCP Team Chronic Disease Visit Annual PCP Team Chronic Disease Visit [facility] Start: 10-16-2024 Hepatitis B surface antibody level LDL Cholesterol [facility] Start: 10-03-2024 End: 10-03-2024 Patient encounter procedure 10/03/2024 11:00 AM EDT Office Visit [facility] [place] [address] [facility] [place] [id number] Ni Sauceda APRN.COMMERCIAL REVIEW APPRAISER [address] [facility] [place] [address] 6 month routine follow up [facility] [place] Comment on above: 6 month routine follow up Start: 09-27-2024 End: 12-27-2024 Calcium.ionized [Moles/volume] in Blood CALCIUM, IONIZED Lab Routine Hypercalcemia Expected: 09/27/2024, Expires: 12/27/2024 [facility] Work Phone: Comment on above: Expected: 09/27/2024, Expires: Start: 09-25-2024 End: 12-25-2024 Cobalamin (Vitamin B12) [Mass/volume] in Serum or Plasma [facility] Comment on above: Expected: 09/25/2024, Expires: Start: 09-25-2024 End: 12-25-2024 COPPER BLOOD [facility] Comment on above: Expected: 09/25/2024, Expires: Start: 09-25-2024 End: 12-25-2024 Folate [Mass/volume] in Serum or Plasma [facility] Comment on above: Expected: 09/25/2024, Expires: Start: 09-25-2024 End: 09-25-2024 [facility] visit new patient 09/25/2024 2:00 PM EST Visit (SP) Office Hematology/Oncology [address] [place], [place] [id number] Stephanie Roy DO [address] [place] [address] NEW PATIENT Hematology/Oncology Comment on above: NEW PATIENT Start: 09-25-2024 End: 12-25-2024 Methylmalonate [Moles/volume] in Serum or Plasma [facility] Comment on above: Expected: 09/25/2024, Expires: Start: 09-25-2024 End: 12-25-2024 [facility] Comment on above: Expected: 09/25/2024, Expires: Start: 09-25-2024 End: 12-25-2024 MONOCLONAL PROTEIN, SERUM (BLOOD) [facility] Comment on above: Expected: 09/25/2024, Expires: Start: 09-25-2024 End: 12-25-2024 PROTEIN ELECT RND UR W/[facility] Comment on above: Expected: 09/25/2024, Expires: Start: 09-25-2024 End: 12-25-2024 PROTEIN ELECTROPHORESIS SERUM W/[facility] Work Phone: Comment on above: Expected: 09/25/2024, Expires: Start: 09-03-2024 End: 09-03-2024 ambulatory 09/03/2024 3:10 PM EST [facility]ology [address] [facility] [place] [address] Nyla De Jesus DO [address] [place] [address] Positive GALLO (antinuclear antibody) [R76.8] Rheumatology Comment on above: Positive GALLO (antinuclear antibody) [R76 .8] Start: 09-03-2024 End: 12-03-2024 C reactive protein [Mass/volume] in Serum or Plasma C-REACTIVE PROTEIN Lab Routine Positive GALLO (antinuclear antibody) Expected: 09/03/2024, Expires: 12/03/2024 [facility] Comment on above: Expected: 09/03/2024, Expires: Start: 09-03-2024 End: 12-03-2024 CBC W Auto Differential panel - Blood COMPLETE BLOOD COUNT AND DIFFERENTIAL Lab Routine Positive GALLO (antinuclear antibody) Expected: 09/03/2024, Expires: 12/03/2024 [facility] Comment on above: Expected: 09/03/2024, Expires: Start: 09-03-2024 End: 12-03-2024 Complement C3 [Mass/volume] in Serum or Plasma C3 COMPLEMENT Lab Routine Positive GALLO (antinuclear antibody) Expected: 09/03/2024, Expires: 12/03/2024 [facility] Work Phone: Comment on above: Expected: 09/03/2024, Expires: Start: 09-03-2024 End: 12-03-2024 Complement C4 [Mass/volume] in Serum or Plasma C4 COMPLEMENT Lab Routine Positive GALLO (antinuclear antibody) Expected: 09/03/2024, Expires: 12/03/2024 [facility] Comment on above: Expected: 09/03/2024, Expires: Start: 09-03-2024 End: 12-03-2024 Comprehensive metabolic 2000 panel - Serum or Plasma COMPREHENSIVE METABOLIC PANEL Lab Routine Positive GALLO (antinuclear antibody) Expected: 09/03/2024, Expires: 12/03/2024 [facility] Comment on above: Expected: 09/03/2024, Expires: Start: 09-03-2024 End: 12-03-2024 DNA ANTIBODY DS BLD DNA ANTIBODY DS BLD Lab Routine Positive GALLO (antinuclear antibody) Expected: 09/03/2024, Expires: 12/03/2024 [facility] Comment on above: Expected: 09/03/2024, Expires: Start: 09-03-2024 End: 12-03-2024 Erythrocyte sedimentation rate SEDIMENTATION RATE, WESTERGREN Lab Routine Positive GALLO (antinuclear antibody) Expected: 09/03/2024, Expires: 12/03/2024 [facility] Comment on above: Expected: 09/03/2024, Expires: Start: 08-30-2024 End: 08-30-2024 Patient encounter procedure Neurology Comment on above: f/u balance, abnormal ga it, numbness, neuropathy, hx of CAD, Hx of stent- RACHAEL 12/31 WJN, labs ordered, MRI, MRA x2 Start: 08-30-2024 End: 11-29-2024 KAPPA/NEUMANN,FREE,SER [facility] Comment on above: Expected: 08/30/2024, Expires: Start: 08-30-2024 End: 11-29-2024 PROTEIN ELECTROPHORESIS SERUM W/INTERP [facility] Work Phone: Comment on above: Expected: 08/30/2024, Expires: Start: 08-19-2024 End: 08-19-2024 Patient encounter procedure 08/19/2024 1:30 PM EST Office Visit Allergy [address] [address] Arun Christian, [address] [place] [address] Angioedema, subsequent encounter [T78.3XXD] Allergy Comment on above: Angioedema, subsequent encounter [T78.3X XD] Start: 07-24-2024 Advance Directive Discussion Advance Directive Discussion [facility] Start: 07-24-2024 Medicare Advantage Annual Wellness Visit Medicare Advantage Annual Wellness Visit [facility] Start: 07-18-2024 [facility] Start: 07-12-2024 End: 07-12-2024 Patient encounter procedure 07/12/2024 4:40 PM EST Office Visit Neurology [address] [place] [address] Patria Khanna Jr., MD [address] [id number] follow up Neurology Comment on above: follow up Start: 07-10-2024 Annual PCP Team Chronic Disease Visit Annual PCP Team Chronic Disease Visit [facility] Start: 05-29-2024 End: 05-29-2024 Patient encounter procedure 05/29/2024 1:00 PM EST Office Visit [facility] [place] [address] [place] [address] Suzanna Dawson PA-C [address] [place] [address] bp recheck [facility] Comment on above: bp recheck Start: 05-18-2024 Annual PCP Team Chronic Disease Visit Annual PCP Team Chronic Disease Visit [facility] Start: 05-01-2024 End: 05-01-2024 Patient encounter procedure 05/01/2024 1:00 PM EDT Office Visit [facility] [place] [address] [place] [address] Suzanna Dawson PA-C [address] [place] [address] Medicare Wellness (rescheduled from 04/24 with PCP) [facility] [place] Comment on above: Medicare Wellness (rescheduled from 04/24 with PCP) Start: 04-24-2024 End: 04-24-2024 Patient encounter procedure 04/24/2024 1:00 PM EDT Office Visit [facility] [place] [address] [place] [address] Valeriano Beasley MD [address] [place] [address] Medicare Wellness [facility] [place] Comment on above: Medicare Wellness Start: 04-20-2024 Annual PCP Team Chronic Disease Visit Annual PCP Team Chronic Disease Visit [facility] Start: 04-20-2024 Covid-19 Vaccine () Covid-19 Vaccine () [facility] Comment on above: Postponed from 03/24/2023 (Not Currently Available) Start: 04-20-2024 Covid-19 Vaccine (3 - Booster for Soy series) Covid-19 Vaccine (3 - Booster for Soy series) [facility] Comment on above: Postponed from 07/22/2021 (Not Currently Available) Start: 04-20-2024 Shingrix Vaccine (1 of 2) Shingrix Vaccine (1 of 2) [facility] Comment on above: Postponed from 2000 (Insurance Cov erage) Start: 04-20-2024 Urine microalbumin profile DTaP,Tdap,Td Vaccine (2 - Td or Tdap) [facility] Comment on above: Postponed from 03/04/2018 (Insurance Cov erage) Start: 04-14-2024 Hepatitis B surface antibody level LDL Cholesterol [facility] Start: 04-04-2024 End: 04-04-2024 Patient encounter procedure 04/04/2024 11:40 AM EDT Office Visit [facility] [address] [place] [address] Ni Sauceda APRN.[employer]VIEW [employer]AISER [address] [place] [address] ER Follow [facility] Monday03/29/2024 Tongue Swelling [facility] Comment on above: ER Follow [facility] Monday03/29/2024 Tongue Swelling Start: 03-24-2024 Covid-19 Vaccine ( season) Covid-19 Vaccine ( season) [facility] Start: 03-24-2024 Covid-19 Vaccine ( season) Covid-19 Vaccine ( season) [facility] Start: 03-24-2024 Influenza vaccination [facility] Start: 03-15-2024 DIABETES SCREEN DIABETES SCREEN [facility] Start: 02-07-2024 End: 05-08-2024 CREATININE BLD CREATININE BLD Lab Routine Nephropathy screen Expected: 02/07/2024, Expires: 05/08/2024 [facility] Comment on above: Expected: 02/07/2024, Expires: Start: 02-06-2024 End: 02-06-2024 Patient encounter procedure Radiology Comment on above: Other symptoms and signs involving the n ervous system [R29.818] Start: 01-01-2024 End: 01-01-2024 Patient encounter procedure 01/01/2024 3:40 PM EDT Office Visit Neurology [address] [facility] [address] Patria Khanna Jr., MD [address] [facility] [address] [place] [id number] Balance problems [R26.89] Neurology Comment on above: Balance problems [R26.89] Start: 01-01-2024 End: 04-01-2024 GALLO BY IFA WITH REFLEX GALLO BY IFA WITH REFLEX Lab Routine Balance problems Neuropathy Abnormality of gait Expected: 01/01/2024, Expires: 04/01/2024 [facility] Comment on above: Expected: 01/01/2024, Expires: Start: 01-01-2024 End: 04-01-2024 Erythrocyte sedimentation rate SEDIMENTATION RATE, WESTERGREN Lab Routine Balance problems Neuropathy Abnormality of gait Expected: 01/01/2024, Expires: 04/01/2024 [facility] Comment on above: Expected: 01/01/2024, Expires: Start: 01-01-2024 End: 04-01-2024 HEAVY METALS SCRN BL HEAVY METALS SCRN BL Lab Routine Balance problems Neuropathy Abnormality of gait Expected: 01/01/2024, Expires: 04/01/2024 [facility] Work Phone: Comment on above: Expected: 01/01/2024, Expires: 4 Start: 01-01-2024 End: 04-01-2024 Methylmalonate [Moles/volume] in Serum or Plasma METHYLMALONIC ACID Lab Routine Balance problems Neuropathy Abnormality of gait Expected: 01/01/2024, Expires: 04/01/2024 [facility] Comment on above: Expected: 01/01/2024, Expires: Start: 01-01-2024 End: 04-01-2024 PROTEIN ELECTROPHORESIS SERUM W/INTERP PROTEIN ELECTROPHORESIS SERUM W/INTERP Lab Routine Balance problems Neuropathy Abnormality of gait Expected: 01/01/2024, Expires: 04/01/2024 [facility] Comment on above: Expected: 01/01/2024, Expires: Start: 01-01-2024 End: 04-01-2024 Pyridoxine [Mass/volume] in Serum or Plasma VITAMIN B6/PYRIDOXIN Lab Routine Balance problems Neuropathy Abnormality of gait Expected: 01/01/2024, Expires: 04/01/2024 [facility] Comment on above: Expected: 01/01/2024, Expires: Start: 10-17-2023 End: 01-16-2024 Cobalamin (Vitamin B12) [Mass/volume] in Serum or Plasma [facility] Work Phone: Comment on above: Expected: 10/17/2023, Expires: Start: 10-17-2023 End: 01-16-2024 Comprehensive metabolic 2000 panel - Serum or Plasma [facility] Work Phone: Comment on above: Expected: 10/17/2023, Expires: Start: 10-17-2023 End: 01-16-2024 LIPID PANEL, NONFASTING [facility] Work Phone: Comment on above: Expected: 10/17/2023, Expires: Start: 10-17-2023 End: 01-16-2024 Prostate Specific Ag Free [Mass/volume] in Serum or Plasma [facility] Work Phone: Comment on above: Expected: 10/17/2023, Expires: Start: 10-17-2023 End: 01-16-2024 Urate [Mass/volume] in Serum or Plasma [facility] Work Phone: Comment on above: Expected: 10/17/2023, Expires: Start: 10-13-2023 ANNUAL PCP TEAM CHRONIC DISEASE VISIT ANNUAL PCP TEAM CHRONIC DISEASE VISIT [facility] Start: 10-06-2023 Hepatitis B surface antibody level LDL CHOLESTEROL [facility] Start: 09-14-2023 ANNUAL PCP TEAM CHRONIC DISEASE VISIT ANNUAL PCP TEAM CHRONIC DISEASE VISIT [facility] Start: 09-14-2023 BP CONTROLLED (<130/80) BP CONTROLLED (<130/80) [facility] Start: 09-14-2023 Hepatitis B surface antibody level LDL CHOLESTEROL [facility] Start: 08-21-2023 End: 11-20-2023 CREATININE BLD CREATININE BLD Lab Routine Essential hypertension, benign Kidney lesion Expected: 08/21/2023, Expires: 11/20/2023 [facility] Work Phone: Comment on above: Expected: 08/21/2023, Expires: 4 Start: 07-24-2023 Advance Directive Discussion Advance Directive Discussion [facility] Start: 04-18-2023 ANNUAL PCP TEAM CHRONIC DISEASE VISIT ANNUAL PCP TEAM CHRONIC DISEASE VISIT [facility] Start: 04-18-2023 SHINGRIX VACCINE (1 of 2) SHINGRIX VACCINE (1 of 2) [facility] Comment on above: Postponed from 2000 (Insurance Cov erage) Start: 04-18-2023 Urine microalbumin profile DTAP,TDAP,TD (2 - Td or Tdap) [facility] Comment on above: Postponed from 03/04/2018 (Insurance Cov erage) Start: 04-14-2023 End: 06-14-2023 25-hydroxyvitamin D3 [Mass/volume] in Serum or Plasma VITAMIN D 25 HYDROXY Lab Routine Low vitamin D level Expected: 04/14/2023, Expires: 06/14/2023 [facility] Work Phone: Comment on above: Expected: 04/14/2023, Expires: 3 Start: 04-14-2023 End: 06-14-2023 CBC W Auto Differential panel - Blood CBC + DIFF Lab Routine Essential hypertension, benign NSTEMI (non-ST elevated myocardial infarction) (HCC) Coronary artery disease due to lipid rich plaque Expected: 04/14/2023, Expires: 06/14/2023 [facility] Work Phone: Comment on above: Expected: 04/14/2023, Expires: 3 Start: 04-14-2023 End: 06-14-2023 Comprehensive metabolic 2000 panel - Serum or Plasma COMP METABOLIC PANEL Lab Routine Essential hypertension, benign Expected: 04/14/2023, Expires: 06/14/2023 [facility] Work Phone: Comment on above: Expected: 04/14/2023, Expires: 3 Start: 04-14-2023 End: 06-14-2023 LIPID PANEL, NONFASTING LIPID PANEL, NONFASTING Lab Routine Mixed hyperlipidemia Expected: 04/14/2023, Expires: 06/14/2023 [facility] Work Phone: Comment on above: Expected: 04/14/2023, Expires: 3 Start: 04-14-2023 End: 06-14-2023 Prostate Specific Ag Free [Mass/volume] in Serum or Plasma PSA FREE Lab Routine Elevated PSA Expected: 04/14/2023, Expires: 06/14/2023 [facility] Work Phone: Comment on above: Expected: 04/14/2023, Expires: 3 Start: 04-14-2023 End: 06-14-2023 Urate [Mass/volume] in Serum or Plasma URIC ACID BLOOD Lab Routine Gout without tophus Expected: 04/14/2023, Expires: 06/14/2023 [facility] Work Phone: Comment on above: Expected: 04/14/2023, Expires: 3 Start: 04-14-2023 End: 06-14-2023 Urinalysis complete panel - Urine URINALYSIS, WITH MICROSCOPIC Lab Routine Essential hypertension, benign Expected: 04/14/2023, Expires: 06/14/2023 [facility] Work Phone: Comment on above: Expected: 04/14/2023, Expires: 3 Start: 04-13-2023 Hepatitis B surface antibody level LDL CHOLESTEROL [facility] Start: 03-24-2023 Influenza vaccination INFLUENZA (Season Ended) [facility] Start: 12-06-2022 ANNUAL PCP TEAM CHRONIC DISEASE VISIT ANNUAL PCP TEAM CHRONIC DISEASE VISIT [facility] Start: 10-12-2022 End: 12-12-2022 CBC W Auto Differential panel - Blood [facility] Work Phone: Comment on above: Expected: 10/12/2022, Expires: 3 Start: 10-12-2022 End: 12-12-2022 Iron and Iron binding capacity panel - Serum or Plasma [facility] Work Phone: Comment on above: Expected: 10/12/2022, Expires: 3 Start: 10-07-2022 End: 12-07-2022 Hepatic function 2000 panel - Serum or Plasma HEPATIC FUNCTION PNL Lab Routine Essential hypertension, benign Mixed hyperlipidemia Expected: 10/07/2022, Expires: 12/07/2022 [facility] Work Phone: Comment on above: Expected: 10/07/2022, Expires: 3 Start: 10-07-2022 End: 12-07-2022 LIPID PANEL, NONFASTING LIPID PANEL, NONFASTING Lab Routine Essential hypertension, benign Mixed hyperlipidemia Coronary artery disease due to lipid rich plaque Expected: 10/07/2022, Expires: 12/07/2022 [facility] Work Phone: Comment on above: Expected: 10/07/2022, Expires: 3 Start: 10-07-2022 End: 12-07-2022 Prostate Specific Ag Free [Mass/volume] in Serum or Plasma PSA FREE Lab Routine Elevated PSA Expected: 10/07/2022, Expires: 12/07/2022 [facility] Work Phone: Comment on above: Expected: 10/07/2022, Expires: 3 Start: 09-10-2022 Patient discharge [facility] Start: 09-10-2022 Patient discharge [facility] Start: 09-07-2022 Referral to occupational therapist [facility] Start: 09-07-2022 Referral to service [facility] Start: 09-06-2022 Patient referral [facility] Work Phone: Start: 09-06-2022 Notification of physician [facility] Start: 09-06-2022 Patient education [facility] Start: 09-06-2022 Provision of activity privileges [facility] Start: 09-06-2022 Pulse taking [facility] Start: 09-06-2022 Taking patient vital signs [facility] Start: 09-06-2022 Wound care [facility] Start: 09-06-2022 [facility] Start: 09-04-2022 End: 09-05-2022 [facility] Start: 09-04-2022 Administration of blood product [facility] Start: 09-04-2022 Administration of blood product [facility] Start: 09-04-2022 Catheterization of vein [facility] Start: 09-04-2022 Administration of blood product [facility] Start: 09-04-2022 Catheterization of vein [facility] Start: 09-04-2022 Medication not administered [facility] Start: 09-04-2022 Notification of physician [facility] Start: 09-03-2022 Chart related administrative procedure [facility] Start: 09-03-2022 Referral to associate director of development [facility] Start: 09-02-2022 Application of intermittent pneumatic compression device [facility] Start: 09-02-2022 [facility] Start: 09-02-2022 Assessment of risk of venous thromboembolism [facility] Start: 09-02-2022 Fall prevention [facility] Start: 09-02-2022 Inhalation therapy procedure [facility] Start: 09-02-2022 Insertion of catheter into peripheral vein [facility] Start: 09-02-2022 Introduction of urinary catheter [facility] Start: 09-02-2022 Measuring intake and output [facility] Start: 09-02-2022 Providing care according to standard [facility] Start: 09-02-2022 Provision of activity privileges [facility] Start: 09-02-2022 Referral to gastroenterology service [facility] Start: 09-02-2022 Referral to service [facility] Start: 09-02-2022 [facility] Start: 09-02-2022 End: 09-02-2022 Following clinical pathway protocol [facility] Start: 09-02-2022 Admission procedure [facility] Start: 09-02-2022 Patient referral to dietitian [facility] Start: 07-24-2022 ADVANCE DIRECTIVE DISCUSSION ADVANCE DIRECTIVE DISCUSSION [facility] Start: 07-24-2022 DEPRESSION ASSESSMENT DEPRESSION ASSESSMENT [facility] Start: 05-25-2022 Patient referral to dietitian [facility] Start: 04-12-2022 End: 06-12-2022 25-hydroxyvitamin D3 [Mass/volume] in Serum or Plasma VITAMIN D 25 HYDROXY Lab Routine Low vitamin D level Expected: 04/12/2022, Expires: 06/12/2022 [facility] Work Phone: Comment on above: Expected: 04/12/2022, Expires: 2 Start: 04-12-2022 End: 06-12-2022 CBC W Auto Differential panel - Blood CBC + DIFF Lab Routine Medication management Expected: 04/12/2022, Expires: 06/12/2022 [facility] Work Phone: Comment on above: Expected: 04/12/2022, Expires: 2 Start: 04-12-2022 End: 06-12-2022 Comprehensive metabolic 2000 panel - Serum or Plasma COMP METABOLIC PANEL Lab Routine Essential hypertension, benign Mixed hyperlipidemia Expected: 04/12/2022, Expires: 06/12/2022 [facility] Work Phone: Comment on above: Expected: 04/12/2022, Expires: 2 Start: 04-12-2022 End: 06-12-2022 LIPID PANEL, NONFASTING LIPID PANEL, NONFASTING Lab Routine Coronary artery disease due to lipid rich plaque Essential hypertension, benign Mixed hyperlipidemia Expected: 04/12/2022, Expires: 06/12/2022 [facility] Work Phone: Comment on above: Expected: 04/12/2022, Expires: 2 Start: 04-12-2022 End: 06-12-2022 Prostate Specific Ag Free [Mass/volume] in Serum or Plasma PSA FREE Lab Routine Elevated PSA Expected: 04/12/2022, Expires: 06/12/2022 [facility] Work Phone: Comment on above: Expected: 04/12/2022, Expires: 2 Start: 04-12-2022 End: 06-12-2022 Urate [Mass/volume] in Serum or Plasma URIC ACID BLOOD Lab Routine Gout without tophus Expected: 04/12/2022, Expires: 06/12/2022 [facility] Work Phone: Comment on above: Expected: 04/12/2022, Expires: 2 Start: 04-12-2022 End: 06-12-2022 Urinalysis complete panel - Urine URINALYSIS, WITH MICROSCOPIC Lab Routine Essential hypertension, benign Mixed hyperlipidemia Expected: 04/12/2022, Expires: 06/12/2022 [facility] Work Phone: Comment on above: Expected: 04/12/2022, Expires: 2 Start: 03-25-2022 Patient referral to dietitian [facility] Work Phone: Start: 03-24-2022 Influenza vaccination [facility] Start: 03-15-2022 ANNUAL PCP TEAM CHRONIC DISEASE VISIT ANNUAL PCP TEAM CHRONIC DISEASE VISIT [facility] Start: 03-15-2022 BP CONTROLLED (<130/80) BP CONTROLLED (<130/80) [facility] Start: 03-15-2022 Hepatitis B surface antibody level LDL CHOLESTEROL [facility] Start: 03-15-2022 SHINGRIX VACCINE (1 of 2) SHINGRIX VACCINE (1 of 2) [facility] Comment on above: Postponed from 2000 (Insurance Cov erage) Start: 03-15-2022 Urine microalbumin profile DTAP,TDAP,TD (2 - Td or Tdap) [facility] Comment on above: Postponed from 03/04/2018 (Insurance Cov erage) Start: 09-24-2021 COVID-19 VACCINE (3 - Booster for Soy series) COVID-19 VACCINE (3 - Booster for Soy series) [facility] Start: 07-24-2021 ADVANCE DIRECTIVE DISCUSSION ADVANCE DIRECTIVE DISCUSSION [facility] Start: 07-24-2021 DEPRESSION ASSESSMENT DEPRESSION ASSESSMENT [facility] Start: 07-22-2021 COVID-19 VACCINE (3 - Booster for Soy series) COVID-19 VACCINE (3 - Booster for Soy series) [facility] Start: 11-26-2020 COVID-19 VACCINE (2 - Booster for Soy series) COVID-19 VACCINE (2 - Booster for Soy series) [facility] Start: 03-04-2018 Urine microalbumin profile [facility] Start: 03-08-2017 FECAL OCCULT BLOOD FECAL OCCULT BLOOD [facility] Start: 03-08-2017 Screening for malignant neoplasm of colon Fecal Occult Blood [facility] Start: 2010 Hepatitis B Vaccine (1 of 3 - Risk 3-dose series) Hepatitis B Vaccine (1 of 3 - Risk 3-dose series) [facility] Start: 2010 RSV Vaccine (1 - 1-dose 60+ series) RSV Vaccine (1 - 1-dose 60+ series) [facility] Start: 2010 RSV Vaccine (1 - Risk 60-74 years 1-dose series) RSV Vaccine (1 - Risk 60-74 years 1-dose series) [facility] Start: 2000 SHINGRIX VACCINE (1 of 2) SHINGRIX VACCINE (1 of 2) [facility] Start: 10-20-1995 COLOGUARD (FIT-DNA) COLOGUARD (FIT-DNA) [facility] Start: 10-20-[address] COLONOGRAPHY [facility] Start: 10-20-1995 Screening for malignant neoplasm of colon [facility] Start: 10-20-1995 SIGMOIDOSCOPY SIGMOIDOSCOPY [facility] Start: 1969 Hepatitis A Vaccine (1 of 2 - Risk 2-dose series) Hepatitis A Vaccine (1 of 2 - Risk 2-dose series) [facility] Start: 1950 Abdominal aortic aneurysm screening Abdominal Aortic Aneurysm Screening [facility] Bacteria identified in Sputum by Respiratory culture [facility] Bilirubin measuremen t, urine [facility] Blood ammonia measurement [facility] C reactive protein [Mass/volume] in Serum or Plasma [facility] Calculus analysis [facility] CBC W Auto Different ial panel - Blood [facility] Complement C1 estera se inhibitor.functional/Comp lement C1 esterase inhibitor.total in Serum or Plasma [facility] Comprehensive metabo lic 2000 panel - Serum or Plasma [facility] End: 09-19-2024 Ct abdomen w/o & w/contrast material CT KIDNEY WO/W IVCON Radiology Routine Other specified disorders of kidney and ureter Kidney lesion 1 Occurrences starting 08/21/2023 until 09/19/2024 [facility] Work Phone: Comment on above: 1 Occurrences starting 08/21/2023 until 09/19/2024 Ct abdomen w/o & w/contrast material CT KIDNEY WO/W IVCON Radiology Routine Other specified disorders of kidney and ureter Kidney lesion 08/28/2023 11:58 AM EST [facility] Work Phone: End: 03-08-2025 CT Neck W contrast IV [facility] Comment on above: 1 Occurrences starting 02/07/2024 until 03/08/2025 End: 03-08-2025 CTA Head Arteries W contrast IV [facility] Work Phone: Comment on above: 1 Occurrences starting 02/07/2024 until 03/08/2025 Folate [Moles/volume ] in Serum or Plasma [facility] Hemoglobin [Presence ] in Urine [facility] Hepatitis A virus Ig M Ab [Presence] in Serum [facility] Hepatitis B core ant ibody measurement, IgM type [facility] Hepatitis B surface antigen measurement [facility] Hepatitis C antibody measurement [facility] IgE [Units/volume] i n Serum or Plasma [facility] Lipid 1996 panel - S rosana or Plasma [facility] Magnesium measurement [facility] Measurement of keton es in urine using dipstick [facility] Measurement of weigh t of calculus [facility] Microscopic urinalysis [place] MONOCLONAL PROT 24 U R W/INTERP MONOCLONAL PROT 24 UR W/INTERP Lab Routine Hypercalcemia Monoclonal gammopathy Ordered: 09/27/2024 [facility] Comment on above: Ordered: 09/27/2024 End: 01-30-2025 MR Brain WO contrast MRI BRAIN WO IVCON Radiology Routine Other symptoms and signs involving the nervous system 1 Occurrences starting 01/01/2024 until 01/30/2025 [facility] Comment on above: 1 Occurrences starting 01/01/2024 until 01/30/2025 End: 01-30-2025 MRA Head vessels WO contrast MRA BRAIN WO IVCON Radiology Routine Other symptoms and signs involving the nervous system 1 Occurrences starting 01/01/2024 until 01/30/2025 [facility] Comment on above: 1 Occurrences starting 01/01/2024 until 01/30/2025 End: 01-30-2025 MRA Neck vessels WO contrast MRA CAROTID WO IVCON Radiology Routine Other symptoms and signs involving the nervous system 1 Occurrences starting 01/01/2024 until 01/30/2025 [facility] Comment on above: 1 Occurrences starting 01/01/2024 until 01/30/2025 Origin of Stone [facility] Patient Education ED Angioedema [facility] Work Phone: Patient referral [facility] Work Phone: pH of Urine [facility] PROT ELEC UR 24HR W/ M SPIKE (P) PROT ELEC UR 24HR W/M SPIKE (P) Lab Routine Hypercalcemia Monoclonal gammopathy Ordered: 09/27/2024 [facility] Comment on above: Ordered: 09/27/2024 PROT ELEC UR 24HR W/ M SPIKE AND INTERP PROT ELEC UR 24HR W/M SPIKE AND INTERP Lab Routine Hypercalcemia Monoclonal gammopathy Ordered: 09/27/2024 [facility] Comment on above: Ordered: 09/27/2024 Protein [Mass/time] in 24 hour Urine PROTEIN, 24 HOUR URINE Lab Routine Hypercalcemia Monoclonal gammopathy Ordered: 09/27/2024 [facility] Comment on above: Ordered: 09/27/2024 Prothrombin time [facility] Removal impacted cer umen irrigation/lvg unilat AMBULATORY EAR LAVAGE/IRRIGATION Procedures Routine Excessive ear wax, right Ordered: 04/20/2023 [facility] Work Phone: Comment on above: Ordered: 04/20/2023 Specific gravity of Urine [facility] Specimen color determination [facility] Tryptase [Mass/volum e] in Serum or Plasma [facility] Urine blood test [facility] Urine dipstick for glucose [facility] Urine dipstick for leukocyte esterase [facility] Urine dipstick for nitrite [facility] Urine dipstick for protein [facility] Urine examination [facility] Urine microscopy: epithelial cells [facility] Urine Microscopy: wh ite cells [facility] Urobilinogen [Presen ce] in Urine [facility] End: 12-01-2025 US Abdominal Aorta for screening US SCREENING FOR AAA Radiology Routine Screening for abdominal aortic aneurysm 1 Occurrences starting 11/01/2024 until 12/01/2025 [facility] Work Phone: Comment on above: 1 Occurrences starting 11/01/2024 until 12/01/2025 US Carotid arteries [facility] End: 11-22-2025 XR Bones Complete Survey Views XR BONE SURVEY ROUTINE Radiology Routine Monoclonal gammopathy 1 Occurrences starting 10/23/2024 until 11/22/2025 [facility] Work Phone: Comment on above: 1 Occurrences starting 10/23/2024 until 11/22/2025 XR Bones Complete Harry rvey Views XR BONE SURVEY ROUTINE Radiology Routine Monoclonal gammopathy 10/23/2024 2:49 PM EDT [facility] Immunizations Immunization Date Immunization Notes Care Provider Fa [facility] 11-06-2024 respiratory syncytia l virus (RSV) vaccine, bivalent (ABRYSVO) Suzanna Dawson PA-C Work Phone: [facility] 11-06-2024 tetanus toxoid, redu el diphtheria toxoid, and acellular pertussis vaccine, adsorbed Suzanna Dawson PA-C Work Phone: [facility] 05-01-2024 COVID-19 vaccine, ag e 12+ yr ([employer] [facility]) Suzanna Dawson PA-C Work Phone: [facility] 05-01-2024 influenza, high dose seasonal, preservative-free Suzanna Dawson PA-C Work Phone: [facility] 05-01-2024 influenza virus vacc ine, unspecified formulation Nurse Wstr Work Phone: [facility] 04-20-2023 influenza (HD-IIV4) vaccine, age 65+ yr, high dose, quadrivalent, PF (FLUZONE HIGH-DOSE) Valeriano Beasley MD Work Phone: [facility] 04-20-2023 pneumococcal (PCV20) vaccine, 20 valent (PREVNAR 20) Valeriano Beasley MD Work Phone: [facility] 04-20-2023 pneumococcal Conjuga te, unspecified formulation Valeriano Beasley MD Work Phone: [facility] Work Phone: 04-20-2023 influenza virus vacc ine, unspecified formulation Valeriano Beasley MD Work Phone: [facility] 08-12-2019 influenza, high dose seasonal, preservative-free Ganesh White MA [facility] 08-01-2018 influenza, high dose seasonal, preservative-free Ganesh White MA [facility] 08-01-2018 pneumococcal conjuga te vaccine, 13 valent Ganesh Cindy MILLS [facility] 01-07-2016 pneumococcal polysaccharide vaccine, 23 valent Ganesh White MA [facility] 07-16-2013 influenza virus vacc ine, unspecified formulation Ganesh White MA [facility] 07-12-2011 influenza virus vacc ine, unspecified formulation Ganesh White MA [facility] 03-04-2008 tetanus toxoid, redu el diphtheria toxoid, and acellular pertussis vaccine, adsorbed Ganesh [facility] Work Phone: 06-02-2005 influenza virus vacc ine, unspecified formulation Ganesh [facility] Work Phone: Payers Date Payer Category Payer Self-pay 2022 Medicare (Managed Care) [facility] MED[facility] O [id number] 2022 Unknown [id number] 2022 Medicare [id number] 2022 Private Health Insurance [id number] 2021 Medicare HUMANA MEDICARE HUMANA GOLD PLUS [id number] 2021-[facility] [phone] [place] [id number] [facility] [id number] 2021 Medicare [id number] 1950 Unknown [id number] 2.16.840.1.802758.3.579. 2.627 1950 Unknown [id number] 2.16.840.1.876161.3.579. 2.627 1950 Unknown [id number] 2.16.840.1.692670.3.579. 2.627 Unknown [id number] Unknown [id number] 2.16.840.1.918211.3.579. 2.462 Unknown [id number] 2.16.840.1.943071.3.579. 2.462 Unknown [id number] 2.16.840.1.278867.3.579. 2.462 Unknown [id number] 2.16.840.1.143843.3.579. 2.462 Unknown [id number] 2.16.840.1.277187.3.579. 2.462 Unknown [id number] 2.16.840.1.732396.3.579. 2.462 Unknown [id number] 2.16.840.1.490145.3.579. 2.462 Unknown [id number] 2.16.840.1.541453.3.579. 2.462 Unknown [id number] 2.16.840.1.390487.3.579. 2.462 Unknown [id number] 2.16.840.1.577213.3.579. 2.462 Unknown [id number] 2.16.840.1.912172.3.579. 2.462 Unknown [id number] 2.16.840.1.450754.3.579. 2.462 Unknown [id number] 2.16.840.1.219715.3.579. 2.462 Unknown [id number] 2.16.840.1.408722.3.579. 2.462 Unknown [id number] 2.16.840.1.745163.3.579. 2.462 Unknown [id number] 2.16.840.1.655262.3.579. 2.462 Unknown [id number] 2.16.840.1.115364.3.579. 2.462 Unknown [id number] 2.16.840.1.528783.3.579. 2.462 Unknown [id number] 2.16.840.1.156207.3.579. 2.462 Unknown [id number] 2.16.840.1.685940.3.579. 2.462 Social History Date Type Detail Facility Tobacco smoking status [facility] Start: 1950 Sex Assigned At Male [facility] Start: 07-12-2011 End: 12-13-2021 Tobacco smoking status AZIS Never smoked tobacco [facility] Start: 03-17-2021 End: 01-01-2025 Alcohol intake Current drinker of alcohol (finding) [facility] Start: 1950 Sex Assigned At Not on file [facility] Start: 11-22-2021 End: 04-18-2022 Exposure to SARS-CoV-2 (event) Not sure [facility] Start: 12-05-2021 History SDOH Social Connections Phone 5 [facility] Start: 12-05-2021 History SDOH Social Connections Get Together 3 [facility] Start: 12-05-2021 History SDOH Social Connections Membership 1 [facility] Start: 12-05-2021 History SDOH Social Connections Meetings 2 [facility] Start: 12-05-2021 History SDOH Social Connections Living 4 [facility] Start: 03-25-2022 End: 09-05-2023 Tobacco smoking status NHIS Unknown if ever smoked [facility] Start: 07-12-2011 End: 09-03-2024 Tobacco use and exposure Smokeless tobacco non-user [facility] Start: 12-05-2021 End: 04-20-2023 History of Social function [facility] Start: 12-05-2021 End: 04-20-2023 Social connection and isolation panel [facility] Do you belong to any clubs or organizations such as mormonism groups, unions, fraternal or athletic groups, or school groups? Yes [facility] Are you now , , , , never or living with a partner? [facility] How often to you hav e a drink containing alcohol? Patient refused [facility] How hard is it for y ou to pay for the very basics like food, housing, medical care, and heating Somewhat hard [facility] (I/We) worried whemony er (my/our) food would run out before (I/we) got money to buy more. Never true [facility] In the past 12 month s, was there a time when you were not able to pay the mortgage or rent on time? No [facility] Start: 12-05-2021 Gender identity Identifies as male gender (finding) [facility] Start: 12-05-2021 Sexual orientation Heterosexual (finding) [facility] Start: 09-03-2024 End: 01-23-2025 Tobacco smoking status NHIS Ex-smoker [facility] History of tobacco use Current smoker [facility] History of tobacco use Cigarette Smoker C [facility] Start: 09-03-2024 Alcohol Comment 6 pack of beer a week on average [facility] Start: 10-04-2024 End: 11-11-2024 Sex Male (finding) [facility] Medical Equipment Procedure Code Equipment Code Equipment Origin al Text Equipment Identifier Dates Colonoscopy [facility]EMOS[facility]AY FDA Start: 09-04-2022 Colonoscopy [facility] FDA Start: 09-04-2022 Colonoscopy [facility] FDA Start: 09-04-2022 Colonoscopy [facility]AY FDA Start: 09-04-2022 Colonoscopy HEMOSPRAY FDA Start: 09-04-2022 Colonoscopy HEMOSPRAY FDA Start: 09-04-2022 Colonoscopy HEMOSPRAY FDA Start: 09-04-2022 Colonoscopy HEMOSPRAY FDA Start: 09-04-2022 Colonoscopy HEMOSPRAY FDA Start: 09-04-2022 Colonoscopy HEMOSPRAY FDA Start: 09-04-2022 Colonoscopy [facility]EMOSPRAY FDA Start: 09-04-2022 Colonoscopy HEMOSPRAY FDA Start: 09-04-2022 Goals Date Patient Goal Desired Activity /State Functional Status Date Assessment Result Facility 12-30-2024 Functional status Chair [facility] Work Phone: 09-10-2022 Functional status Ambulates [facility] Work Phone: 01-27-2022 Functional Status Ambulating in [place], Ambulating in room [facility] 01-27-2022 Functional Status [facility] 01-27-2022 Functional Status [facility] 01-27-2022 Functional Status Room check performed [facility] 12-01-2021 Functional Status [facility] 12-01-2021 Functional Status [facility] 12-01-2021 Functional Status [facility] 12-01-2021 Functional Status [facility] 12-01-2021 Functional Status [facility] 12-01-2021 Functional Status [facility] 11-30-2021 Functional Status [facility] 11-30-2021 Functional Status [facility] 11-30-2021 Functional Status [facility] 11-30-2021 Functional Status [facility] 11-30-2021 Functional Status [facility] 11-30-2021 Functional Status [facility] 11-29-2021 Functional Status [facility] 11-29-2021 Functional Status [facility] 11-29-2021 Functional Status [facility] 12-08-2014 Are you deaf, or do you have serious difficulty hearing No 12/08/2014 6:06 PM Ganesh Cochran MA No [facility] 12-08-2014 Are you blind, or do you have serious difficulty seeing, even when wearing glasses No 12/08/2014 6:06 PM Ganesh Cochran MA No [facility] 12-08-2014 Do you have serious difficulty walking or climbing stairs No 12/08/2014 6:06 PM Ganesh Cochran MA No [facility] 12-08-2014 Do you have difficul ty dressing or bathing No 12/08/2014 6:06 PM Ganesh Cochran MA No [facility] 12-08-2014 Because of a physica l, mental, or emotional condition, do you have difficulty doing errands alone such as visiting a physician's office or shopping No 12/08/2014 6:06 PM Ganesh Cochran MA No [facility] Mental Status Date Assessment Result Facility 12-29-2024 Cognitive function Voice/Name [facility] Work Phone: 12-28-2024 Cognitive function Sedated [facility] Work Phone: 09-10-2022 Cognitive function Voice/Name [facility] Work Phone: 01-27-2022 Mental Status Orientation Oriented x 4 [facility] 01-27-2022 Mental Status [facility] 01-27-2022 Mental Status [facility] 12-01-2021 Mental Status [facility] 12-01-2021 Mental Status [facility] 11-30-2021 Mental Status [facility] 11-29-2021 Mental Status [facility] 11-29-2021 Mental Status [facility] 12-08-2014 Because of a physica l, mental, or emotional condition, do you have serious difficulty concentrating, remembering, or making decisions No 12/08/2014 6:06 PM EDT Ganesh White MA No [facility] Clinical Notes 08-01-2018 to 01-23-2025 Telephone Encounter - Sean Abbasi RN - 01/23/2025 12:59 PM EDTTelephone Encounter - Sean Abbasi RN - 01/23/2025 12:59 PM EDTTelephone Encounter - Zakiya Spangler MA - 01/23/2025 11:57 AM EDT Note Date & Type Note Facility 01-23-2025 Telephone encounter Note See triage note. Pt agreeable to ER. [facility] 01-23-2025 Miscellaneous Notes See triage note. Pt agreeable to ER. Appt placed on Nurse Triage do due to no response from pt and message not being read. Want to get an update. Pt did not feel he needed an appt. Zakiya Spangler MA Asked pt additional questions prior to sending to PCP. Zakiya Spangler MA documented in this encounter [facility] 01-23-2025 Telephone encounter Note Pt reports he's had several episodes of passing dark blood without stool since January 21, today had dark red clots come out with water only. No episodes since 10 am today. Has hx GI bleed in 2022- hospitalized. Pt reports he feels good right now. No abdominal pain. A little dizziness sometimes. Shortness of Breath on exertion at times. Protocol recommends ER Now. Pt agreeable but states he is going to appt with correctional corporal first. Reports he has had 5 episodes of tongue swelling since Jun and correctional corporal is going to help him with this. Pt states if rectal bleed starts again he will go straight to ER instead of allergy appt, otherwise he will go to allergy appt at 2 pm first. Phoned and spoke with nurse Mila at [facility] ER and given report. Advised pt said he would go to allergy appt first unless rectal bleed starts again. Reason for Disposition [1] MODERATE rectal bleeding (e.g., small blood clots, passing blood without stool, or toilet water turns red) AND [2] more than once a day Answer Assessment - Initial Assessment Questions 1. APPEARANCE of BLOOD: Pt reports blood was dark red. Had episode at 10 am on January 21 at home- without stool, had 3 more episodes after that- without stool- just liquid like water and blood, then it stopped. Yesterday didn't have a BM, yesterday it was like water- was dark red blood- early in the morning 1 or 2 am. Today at 10 am had with dark red clots in toilet bowl. None since 10 am. Comes whether has BM or not. 2. AMOUNT: Looked like a lot of blood. 3. FREQUENCY: Blood has always been separate from stool. Hasn't had a normal BM since Monday. 4. ONSET: This is the first time this has happened since GI bleed in 2022. Was told it was diverticulitis. Did colonoscopy and cauterized it. 5. DIARRHEA: No diarrhea. 6. CONSTIPATION: No constipation. 7. RECURRENT SYMPTOMS: 2022, was hospitalized. 8. BLOOD THINNERS: Low dose asa 9. OTHER SYMPTOMS: No abdominal. No nausea. A little dizziness. Reports he feels pretty good. Hx SD 2021- sometimes get short of breath on exertion. 10. : N/A Protocols used: Rectal [id number] [facility] 01-23-2025 Miscellaneous Notes Pt reports he's had several episodes of passing dark blood without stool since January 21, today had dark red clots come out with water only. No episodes since 10 am today. Has hx GI bleed in 2022- hospitalized. Pt reports he feels good right now. No abdominal pain. A little dizziness sometimes. Shortness of Breath on exertion at times. Protocol recommends ER Now. Pt agreeable but states he is going to appt with correctional corporal first. Reports he has had 5 episodes of tongue swelling since Jun and correctional corporal is going to help him with this. Pt states if rectal bleed starts again he will go straight to ER instead of allergy appt, otherwise he will go to allergy appt at 2 pm first. Phoned and spoke with nurse Mila at [facility] ER and given report. Advised pt said he would go to allergy appt first unless rectal bleed starts again. Reason for Disposition [1] MODERATE rectal bleeding (e.g., small blood clots, passing blood without stool, or toilet water turns red) AND [2] more than once a day Answer Assessment - Initial Assessment Questions 1. APPEARANCE of BLOOD: Pt reports blood was dark red. Had episode at 10 am on January 21 at home- without stool, had 3 more episodes after that- without stool- just liquid like water and blood, then it stopped. Yesterday didn't have a BM, yesterday it was like water- was dark red blood- early in the morning 1 or 2 am. Today at 10 am had with dark red clots in toilet bowl. None since 10 am. Comes whether has BM or not. 2. AMOUNT: Looked like a lot of blood. 3. FREQUENCY: Blood has always been separate from stool. Hasn't had a normal BM since Monday. 4. ONSET: This is the first time this has happened since GI bleed in 2022. Was told it was diverticulitis. Did colonoscopy and cauterized it. 5. DIARRHEA: No diarrhea. 6. CONSTIPATION: No constipation. 7. RECURRENT SYMPTOMS: 2022, was hospitalized. 8. BLOOD THINNERS: Low dose asa 9. OTHER SYMPTOMS: No abdominal. No nausea. A little dizziness. Reports he feels pretty good. Hx SD 2021- sometimes get short of breath on exertion. 10. : N/A Protocols used: Rectal [id number] documented in this encounter [facility] 01-23-2025 Telephone encounter Note Appt placed on Nurse Triage do due to no response from pt and message not being read. Want to get an update. Pt did not feel he needed an appt. Zakiya Spangler MA [facility] 01-23-2025 Telephone encounter Note Asked pt additional questions prior to sending to PCP. Zakiya Spangler MA [facility] 01-01-2025 Note HNO ID: [id number] Author: SUZANNA DAWSON PA-C Service: ? Author Type: Physician Net Web Developer Type: Progress Notes Filed: 01/01/2025 12:06 Note Text: Chief Complaint Patient presents with: Hospital F/U TCM Note: Patient discharged on 12/30/2024 Patients appointment is within 48 hours. HPI Nazario Htuton is a 74 year old male who presents here today for Hospital Discharge Follow up. He was admitted Monday and discharged Monday morning 12/30/24. He has picked up his epi pen from the pharmacy and is scheduled to see an Bilingual Manager on January 23. Prozac was discontinued by the hospitalist due to possible correlation with angioedema. Patient states he feels ok and is agreeable to waiting to get the correctional corporal's recommendations before attempting to initiate a new medication for depression. Patient with a PMHX of alcoholic cirrhosis, alcohol abuse, STEMI,NSTEMI, systolic heart murmur, diverticulosis, mixed hyperlipidemia Past medical history, appointments, medications, allergies reviewed. Previous Medical History PAST MEDICAL HISTORY Diagnosis Date Advance directive discussed with patient 04/18/2022 Discussed 03/2022 Alcohol abuse 09/14/2022 6 beers a day since passed in early 2021 Alcoholic cirrhosis (HCC) 06/05/[address] Francis Ash 12/08/2014 AVM (arteriovenous malformation) of colon 09/14/[address] Chacon BENIGN HYPERTENSION 03/04/2008 Coronary artery disease due to lipid rich plaque 12/06/[address] Edwards , cardio [place] Diverticulosis 09/05/2022 Elevated alkaline phosphatase level 09/03/2017 Elevated PSA 03/17/2021 Heart attack (HCC) 2021 Heart murmur, systolic 08/01/2018 High serum parathyroid hormone (PTH) 08/01/[address] elevation myocardial infarction (STEMI) 12/06/2021 Hyperuricemia 10/30/[address] 04/18/2022 DPA: Jae (son) Low serum vitamin B12 05/18/2023 Low vitamin D level 03/15/2021 Lumbosacral radiculopathy at L5 07/10/2023 Medicare annual wellness visit, subsequent 03/15/2021 Medicare Part B: Not able to find. 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 gabapentin (NEURONTIN) 300 mg capsule Take 2 capsules by mouth two times a day for 90 days. fexofenadine (MARII ALLERGY) 180 mg tablet Take 1 tablet by mouth once daily. carvedilol (COREG) 12.5 mg tablet Take 1 tablet by mouth two times a day with meals. allopurinol (ZYLOPRIM) 100 mg tablet TAKE 1 TABLET BY MOUTH ONCE DAILY. FOR GOUT. amLODIPine (NORVASC) 5 mg tablet Take 1 tablet by mouth once daily. ezetimibe (ZETIA) 10 mg tablet Take 1 tablet by mouth once daily. Blood Pressure Monitor 1 Each once daily. isosorbide mononitrate ER (IMDUR) 30 mg 24 hr tablet Take 1 tablet by mouth once daily. Per [facility] aspirin, enteric coated (ASPIRIN, ENTERIC COATED) 81 mg EC tablet Take 1 tablet by mouth once daily. multivitamin tablet Take 1 tablet by mouth once daily. nitroglycerin sublingual (NITROQUICK) 0.4 mg SL tablet Dissolve 1 tablet under the tongue every 5 minutes as needed for chest pain. docosahexaenoic acid/epa (FISH OIL ORAL) Take 1,000 mg by mouth once daily. cholecalciferol (VITAMIN D3) 5,000 unit tab Take 5,000 Units by mouth once daily. ascorbic acid, vitamin C, (VITAMIN C) 500 mg tablet Take 500 mg by mouth once daily. doxepin capsule 25 mg Take 1 capsule by mouth daily at bedtime. VITAMIN B COMPLEX (B COMPLEX 1 ORAL) Take 1 tablet by mouth once daily. diphenhydrAMINE ( (more content not included)... [facility] 01-01-2025 History of Presen t illness Narrative Chief Complaint Patient presents with: Hospital F/U TCM Note: Patient discharged on 12/30/2024 Patients appointment is within 48 hours. HPI Nazario Hutton is a 74 year old male who presents here today for Hospital Discharge Follow up. He was admitted Monday and discharged Monday morning 12/30/24. He has picked up his epi pen from the pharmacy and is scheduled to see an Bilingual Manager on January 23. Prozac was discontinued by the hospitalist due to possible correlation with angioedema. Patient states he feels ok and is agreeable to waiting to get the correctional corporal's recommendations before attempting to initiate a new medication for depression. Patient with a PMHX of alcoholic cirrhosis, alcohol abuse, STEMI,NSTEMI, systolic heart murmur, diverticulosis, mixed hyperlipidemia Past medical history, appointments, medications, allergies reviewed. Previous Medical History PAST MEDICAL HISTORY Diagnosis Date Advance directive discussed with patient 04/18/2022 Discussed 03/2022 Alcohol abuse 09/14/2022 6 beers a day since passed in early 2021 Alcoholic cirrhosis (HCC) 06/05/[address] Francis Ash 12/08/2014 AVM (arteriovenous malformation) of colon 09/14/[address] Chacon BENIGN HYPERTENSION 03/04/2008 Coronary artery disease due to lipid rich plaque 12/06/[address] Edwards , cardio [place] Diverticulosis 09/05/2022 Elevated alkaline phosphatase level 09/03/2017 Elevated PSA 03/17/2021 Heart attack (HCC) 2021 Heart murmur, systolic 08/01/2018 High serum parathyroid hormone (PTH) 08/01/[address] elevation myocardial infarction (STEMI) 12/06/2021 Hyperuricemia 10/30/[address] 04/18/2022 DPA: Jae (son) Low serum vitamin B12 05/18/2023 Low vitamin D level 03/15/2021 Lumbosacral radiculopathy at L5 07/10/2023 Medicare annual wellness visit, subsequent 03/15/2021 Medicare Part B: Not able to find. 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 gabapentin (NEURONTIN) 300 mg capsule Take 2 capsules by mouth two times a day for 90 days. fexofenadine (MARII ALLERGY) 180 mg tablet Take 1 tablet by mouth once daily. carvedilol (COREG) 12.5 mg tablet Take 1 tablet by mouth two times a day with meals. allopurinol (ZYLOPRIM) 100 mg tablet TAKE 1 TABLET BY MOUTH ONCE DAILY. FOR GOUT. amLODIPine (NORVASC) 5 mg tablet Take 1 tablet by mouth once daily. ezetimibe (ZETIA) 10 mg tablet Take 1 tablet by mouth once daily. Blood Pressure Monitor 1 Each once daily. isosorbide mononitrate ER (IMDUR) 30 mg 24 hr tablet Take 1 tablet by mouth once daily. Per [place] [facility] aspirin, enteric coated (ASPIRIN, ENTERIC COATED) 81 mg EC tablet Take 1 tablet by mouth once daily. multivitamin tablet Take 1 tablet by mouth once daily. nitroglycerin sublingual (NITROQUICK) 0.4 mg SL tablet Dissolve 1 tablet under the tongue every 5 minutes as needed for chest pain. docosahexaenoic acid/epa (FISH OIL ORAL) Take 1,000 mg by mouth once daily. cholecalciferol (VITAMIN D3) 5,000 unit tab Take 5,000 Units by mouth once daily. ascorbic acid, vitamin C, (VITAMIN C) 500 mg tablet Take 500 mg by mouth once daily. doxepin capsule 25 mg Take 1 capsule by mouth daily at bedtime. VITAMIN B COMPLEX (B COMPLEX 1 ORAL) Take 1 tablet by mouth once daily. diphenhydrAMINE (BENADRYL) 25 mg capsule Take 25 mg by mouth every 6 hours as needed. gabapentin (NEURONTIN) 300 mg capsule Take 1 capsule by mouth two times a day for 90 days. carvedilol (COREG) 12.5 mg tablet Take 1 tablet by mouth two times a day with meals. FLUoxetine (PROZAC) 40 mg capsule Take 1 capsule by mouth once daily. No current facility-administered medications on file prior to visit. Social History Social History Tobacco Use Smoking status: Former Types: Cigarettes Smokeless tobacco: Never Vaping Use Vaping status: Never Used Substance Use Topics Alcohol use: Yes Comment: 6 pack of beer a week on average Drug use: No Review of Symptoms REVIEW OF SYSTEMS See hpi EXAM: BP 122/80 (BP Site: Left Arm, BP Position: Sitting, BP Cuff Size: Large Adult) Pulse 72 Temp 36.6 C (97.8 F) Resp 18 Wt 97.5 kg (215 lb) SpO2 96% BMI 31.13 kg/m General Appearance: Well appearing, alert, in no acute distress, well-hydrated, well nourished.. Lungs: Lungs clear to auscultation. No wheezing, rhonchi, rales.. Heart: RRR +systolic murmur (noted previously in his hx), No gallop or rubs. No ectopy. Peripheral Pulses: Normal. Health Maintenance List Medicare Advantage Annual Wellness Visit due on 07/24/2024 Hepatitis B Vaccine(1 of 3 - Risk 3-dose series) due on 11/01/2025 Hepatitis A Vaccine(1 of 2 - Risk 2-dose series) due on 11/01/2025 Shingrix Vaccine(1 of 2) due on 11/01/2025 Covid-19 Vaccine( season) due on 11/01/2025 Colorectal Cancer Screening due on 09/05/2025 LDL Cholesterol due on 10/30/2025 Annual PCP Team Chronic Disease Visit due on 11/01/2025 Diabetes Screening due on 10/31/2027 Lipid Screening due on 10/30/2029 DTaP,Tdap,Td Vaccine(3 - Td or Tdap) due on 11/06/2034 Abdominal Aortic Aneurysm Screening Completed Influenza Vaccine Completed Advance Directive Discussion Completed RSV Vaccine Completed Pneumococcal Vaccine: 50+ Completed Hepatitis C Screening Discontinued Data reviewed ASSESSMENT/PLAN: 1. Hospital discharge follow-up - ICD9: V67.59, ICD10: Z09 (primary diagnosis) Patient scheduled to see correctional corporal on 01/23/25. Will follow with them for further evaluation of angioedema episodes. Agrees to hold off on starting new medication for anxiety/depression until seeing the correctional corporal based off their recommendations. 2. Essential hypertension, benign - ICD9: 401.1, ICD10: I10 Well controlled, no new concerns. - AMLODIPINE 5 MG TABLET Patient to follow up as needed and as scheduled for routine. Milena REDDING I have personally seen and examined the patient and performed the medical-decision making components. I have reviewed the Physician Net Web Developer (PA) student's documentation and verified the findings in the note as written. Any additions or changes are noted in bold/italics. Suzanna Dawson PA-C documented in this encounter [facility] 12-30-2024 Discharge summary Note Date/Time December 30, 2024 9:04a [facility] Medical Records Department [address] [place] [address] Discharge Summary 12/30/24 0854 MR#: [id number] Acct: [id number] Name: NAZARIO HUTTON Rep #:[id number] : 1950 74 From: lAexi Olivas DO PCP: Dr. Valeriano Beasley MD Status:ADM IN Location: ICU ICU07-1 Providers Date of Admission: 12/27/24 Primary Care Physician: Dr. Valeriano Beasley MD Consultations 12/27/24 16:14 Consult: Hog Scalder / Pulmonary Medicine Routine Consulting Provider: Intensivists/Pulmonary Med Reason for Consult: Acute respiratory failure secondary to angioedema EMERGENT Consult: No MD Notified: Yes Date Notified: 12/27/24 Time Notified: 14:08 Method of Notification: Verbal Reason For Visit: ACUTE RESPIRATORY FAILURE 2/2 ANGIOEDEMA Diagnosis Discharge Diagnosis (1) Acute respiratory failure: Status: Acute Code(s): J96.00 - Acute respiratory failure, unspecified whether with hypoxia or hypercapnia Plan: 2/2 angioedema. Required intubation to prevent respiratory collapse given the angioedema. Sedation w fentanyl and dexmedetomidine gtt. [facility] consult Extubated 12/29 (2) Angioedema: Status: Acute Code(s): T78.3XXA - Angioneurotic edema, initial encounter Plan: unclear etiology. No current ACEi/ARB on home list. Has had angioedema from losartan in the past. I would be concerned about hereditary etiology. C1 esterase ordered. Follow up with allergy as oupt. Will need steroids and epi pen upon discharge. Plan Eosinophilia: resolved. Lymphopenia: ongoing. Follow up with hematology as outpt. VTE prophylaxis: LMWH. Monitor overnight and if does well, should be ready for discharge 12/30. Medications at Discharge Home Medications allopurinol 100 mg tablet 100 mg PO DAILY GOUT 03/25/22 atorvastatin 80 mg tablet 80 mg PO QHS CHOLESTEOL 03/25/22 ezetimibe 10 mg tablet 10 mg PO QHS CHOLESTEROL 09/02/22 nitroglycerin 0.4 mg sublingual tablet 0.4 mg sublingual UD PRN Chest Pain 09/02/22 ascorbic acid (vitamin C) 500 mg tablet 1,000 mg (2 x 500 mg) PO BIDCM 30 days #120 tabs 09/09/22 cholecalciferol (vitamin D3) 125 mcg (5,000 unit) capsule 125 mcg PO DAILY supplement 09/01/23 omega 3-dha 100 mg-epa 400 mg-fish oil 1,000 mg capsule 1 cap PO DAILY PRN supplement 09/01/23 vitamin B complex (B Complex-Vitamin B12 tablet) 1 tab PO DAILY feet 09/01/23 isosorbide mononitrate 30 mg tablet,extended release 24 hr 30 mg PO QAM bp 04/15/24 amlodipine 5 mg tablet 5 mg PO QDAY bp 09/19/24 carvedilol 12.5 mg tablet 12.5 mg PO BID bp 09/19/24 fexofenadine 180 mg tablet 180 mg PO QODAY allergies 09/19/24 gabapentin 300 mg capsule 600 mg PO BID neuropathy 09/19/24 doxepin 25 mg capsule 25 mg PO QHS mood 11/05/24 aspirin 81 mg capsule 81 mg PO DAILY heart 12/29/24 epinephrine 0.3 mg/0.3 mL injection, auto-injector (EpiPen) 0.3 mg (0.3 mL) IM X1 PRN anaphylaxis/angioedema #1 ea 12/30/24 prednisone 20 mg tablet 40 mg (2 x 20 mg) PO DAILY #10 tabs 12/30/24 Hospital Course Operations None Procedures None Summary of Care Provided Minutes Spent on Discharge: 32 Hospital Course: Patient presented with angioedema and was intubated due to impending airway collapse. Patient started on steroids and has done well. Patient was intubatedthen extubated on the eighth. Patient will be discharged home to continue with prednisone. Patient previously had angioedema due to losartan in the past but she is no longer taking or any other JOSE inhibitor's. Concern for hereditary angioedema and a C1 esterase was ordered here but still pending. Patient is recommend to follow-up with an correctional corporal as outpatient. Patient also have prescription for EpiPen available in case anything like this or In the future. Patient advised that if this does happen again that if he does take EpiPen and best at better he should still seek attention. Weight / BMI Weight Weight: 95.9 kg Body Mass Index (BMI) 30.2 ABG / Lab / Microbiology Data 12/30/24 05:40 12/30/24 05:40 Laboratory: Laboratory Results - last 24 hr 12/29/24 11:30: Urine Color Cancelled, Urine Clarity Cancelled, Urine pH Cancelled, Ur Specific [place] Cancelled, U Specif Grav (Refrac) Cancelled, Urine Protein Cancelled, Urine Glucose (UA) Cancelled, Urine Ketones Cancelled, Urine Occult Blood Cancelled, Urine Nitrite Cancelled, Urine Bilirubin Cancelled, Urine Urobilinogen Cancelled, Ur Leukocyte Esterase Cancelled, Urine RBC Cancelled, Urine WBC Cancelled, Ur Squamous Epith Cells Cancelled, Ur Transition Epith Cell Cancelled, Ur Renal Epithelial Cell Cancelled, Calcium Oxalate Crystal Cancelled, Uric Acid Crystals Cancelled, Triple Phos Crystals Cancelled, Other Crystals Cancelled, Amorphous Sediment Cancelled, Urine Bacteria Cancelled, Hyaline Casts Cancelled, Fine Granular Casts Cancelled, Coarse Granular Casts Cancelled, Waxy Casts Cancelled, RBC Casts Cancelled, WBC Casts Cancelled, Urine Mucus Cancelled, Urine Trichomonas Cancelled, Urine YeastCancelled 12/30/24 05:40: WBC 11.8 H, RBC 3.76 L, Hgb 13.5, Hct 40.2, MCV 106.9 H, MCH 35.9 H, MCHC 33.6, RDW Std Deviation 54.1 H, RDW Coeff of Dorie 13.7, Plt Count 185, MPV 9.8, Immature Gran % (Auto) 1.000 H, Neut % (Auto) 88.6 H, Lymph % (Auto) 3.8 L, [place] % (Auto) 6.4, Eos % (Auto) 0.0, Baso % (Auto) 0.2, Absolute Neuts (auto) 10.5 H, Absolute Lymphs (auto) 0.45 L, Nucleated RBC % 0, Sodium 141, Potassium 4.0, Chloride 107, Carbon Dioxide 24.1, Anion Gap 10, BUN 20 H, Creatinine 0.70, Estim Creat Clear Calc 94.14, Est GFR (MDRD) Non-Af 97, BUN/Creatinine Ratio 29.0 H, Glucose 125 H, Calcium 9.0 Microbiology: Microbiology 12/28/24 16:30 Sputum, Induced/Lukens Respiratory Culture - Preliminary Staphylococcus aureus 12/29/24 11:30 Mucosa - Nasopharyngeal SARS-CoV-2, Influenza & RSV (PCR) - Final 12/27/24 14:03 Sputum, Induced/Lukens Respiratory Culture - Final Mixed normal respiratory adrian. No Streptococcus pneumoniae, beta-hemolytic Streptococcus or Staphylococcus aureus isolated. D/C Instructions Discharge Diet: No restrictions DC O2, CPAP, BIPAP Needs Home O2 Discharge instructions: No Meaningful Use Info Meaningful Use Meaningful Use Diagnoses (Choose all that apply): None applicable Ischemic Stroke Statin Dosing Therapy Reference: STATIN DOSE THERAPY REFERENCE: * Patients > 75 years receive moderate or high dose statin therapy. * Patients 75 years or YOUNGER should receive HIGH intensity statin dose unless contraindicated. You will be required to document reason for non-treatment if statin daily dose does not meet guidelines. HIGH DOSE STATIN THERAPY DAILY Atorvastatin > than or = to 40 mg Rosuvastatin > than or = to 20 mg Amlodipine + Atorvastatin > than or = to 2.5/40 mg Ezetimibe + Simvastatin 10/80 mg Simvastatin 80mg Discharge Plan Admission Admit Date/Time: 12/27/24 13:58 Primary Reason for Your Visit: Angioedema Attending Provider: Alexi Olivsa Primary Care Provider: Valeriano Beasley Consulting Providers: Tony Shultz; Ej Murguia; Ricci Ballesteros; Homer Guzman; Tessa Ty; Joni Garsia; Viktor Francis; Belia Villanueva; Spike Floyd; Eric oDckery; Jim Marin; Isabel Hagen; Jaquelin Singh; Nelda Conde; Kasi Pina; Juancarlos Rebollar; Drew Gibbons; Kenan Crawley; Carl Lieberman; Ran Perea; Gregory Hernandez; Mohit Myers; Patria Crowe; Flakita Florentino Instructions Additional Instructions / Restrictions: You had recurrent angioedema but is unclear what was the cause this time. I do recommend a follow-up with allergy and immunology to further evaluate what may be the underlying cause for this. In the meantime you will be on a short courseof prednisone and I will have a prescription available for you for an EpiPen if anything like this would happen the future. If you do have angioedema and you do use your EpiPen and even if you get better, please seek attention in the emergency room because it could potentially still get worse. Allergy and Immunology: [facility] [phone]. Dr. Ortiz [phone]. Discharge Orders/Prescriptions Prescriptions: New prednisone 20 mg tablet 40 mg PO DAILY Qty: 10 0RF epinephrine [EpiPen] 0.3 mg/0.3 mL auto-injector 0.3 mg IM X1 PRN (Reason: anaphylaxis/angioedema) Qty: 1 0RF Rx Instructions: for 2 doses Continued cholecalciferol (vitamin D3) 125 mcg (5,000 unit) capsule 125 mcg PO DAILY vitamin B complex [B Complex-Vitamin B12] Tablet 1 tab PO DAILY omega 6-qvo-zkw-fish oil 100-400-1,000 mg capsule 1 cap PO DAILY PRN (Reason: supplement) isosorbide mononitrate 30 mg tablet extended release 24 hr 30 mg PO QAM gabapentin 300 mg capsule 600 mg PO BID carvedilol 12.5 mg tablet 12.5 mg PO BID amlodipine 5 mg tablet 5 mg PO QDAY fexofenadine 180 mg tablet 180 mg PO QODAY doxepin 25 mg capsule 25 mg PO QHS atorvastatin 80 mg Tablet 80 mg PO QHS allopurinol 100 mg Tablet 100 mg PO DAILY nitroglycerin 0.4 mg tablet, sublingual 0.4 mg sublingual UD PRN (Reason: Chest Pain) Patient Comments: PLACE 1 TABLET UNDER TONGUE EVERY 5 MINS, UP TO 3 DOSES NEEDED FOR CHEST PAIN Rx Instructions: PLACE 1 TABLET UNDER TONGUE EVERY 5 MINS, UP TO 3 DOSES NEEDED FOR CHEST PAIN ezetimibe 10 mg tablet 10 mg PO QHS ascorbic acid (vitamin C) 500 mg Tablet 1,000 mg PO BIDCM 30 Days Qty: 120 0RF Rx Instructions: Take with iron tablets aspirin 81 mg capsule 81 mg PO DAILY Discontinued fluoxetine 40 mg capsule 40 mg PO QDAY Referrals / Follow Up: Valeriano Beasley MD [Primary Care Provider] - Within 2 Weeks Disposition Disposition (needs filled in before D/C Order can be placed): Home, Self Care Charges/Coding Visit Charges Inpatient E&M: 30886 Disch Hosp >30min 12/30/24903 <Electronically signed by Alexi Olivas DO> Cosigner Signature (if applicable): CC: Dr. Alexi Olivas DO; Dr. Valeriano Beasley MD~ Signed [facility] Work Phone: [phone] Progress note [facility] Medical Records Department [address] [place] [address] Progress Note - Hog Scalder 12/30/24 0703 MR#: [id number] Acct: [id number] Name: LIVANNAZARIOBRISSA BAL Rep #:[id number] : 1950 74 From: Homer Guzman DO PCP: Dr. Valeriano Beasley MD Status:ADM IN Location: ICU ICU07-1 Assessment & Plan Assessment/Plan (1) Acute respiratory failure: (2) Angioedema: PLAN: Plan RECOMMENDATIONS: 1. Antimicrobials based upon culture results. 2. Okay to discontinue Benadryl, Pepcid and corticosteroids. 3. Recommend outpatient follow-up with allergy/immunology. 4. Encourage incentive spirometer use and mobilize patient as tolerated. 5. The patient is medically stable for transfer out of the intensive care unit. Will sign off at this time. IMPRESSIONS: 1. Acute hypoxemic respiratory failure Intubated in the emergency department secondary to history of recurrent angioedema of unclear etiology. With supportive care, including Benadryl, Pepcid and corticosteroids, the patient has improved from a clinical perspectiveand was able to be extubated on December 29. He is currently maintaining appropriateoxygen saturations on room air. The patient remains on antimicrobials due to staph and Streptococcus isolated from sputum culture. I would recommend that the patient follow-up with a local allergy/stapler machine for further workup of his recurrent angioedema. This note was generated with [employer] dictation software. It may contain incorrectwords, spelling, and punctuation that were not noted in checking the note beforesigning. Subjective Subjective The patient was seen and examined at the bedside this morning. Events from the last 24 hours have been reviewed. The patient is currently afebrile, hemodynamically stable and maintaining appropriate oxygen saturations on room air. The patient is unremarkably well from a respiratory perspective following extubation. White blood cell count is noted to be 12,000 with a stable hemoglobin and plateletcount. Chemistry profile was unremarkable. Objective Data Objective Data The patient's most recent lab work, culture data and imaging studies have all been personally reviewed. Sputum cultures currently demonstrating growth of Staph aureus and Streptococcus. Vital Signs: Vital Signs Temp Pulse Resp BP Pulse Ox O2 Del Method O2 Flow Rate 98.6 F 58 L 14 145/87 H 93 Room Air 2 12/30/24 00:00 12/30/24 07:00 12/30/24 07:00 12/30/24 07:00 12/30/24 07:00 12/30/24 07:00 12/29/24 11:00 FiO2 30 12/29/24 09:00 Oxygen Flow Rate (L/min) 2 Oxygen Delivery Method Room Air Weight: 211 lb 6.773 oz Body Mass Index (BMI) 30.2 Intake & Output: Intake and Output for Last 24 Hours 12/28/24 12/29/24 12/30/24 23:59 23:59 23:59 Intake Total 2535.26 / 2559.56 1136.23 / 1136.23 800 / 800 Output Total 900 / 900 475 / 475 300 / 300 Balance 1635.26 / 1659.56 661.23 / 661.23 500 / 500 Lab / Micro Data Attestation: I reviewed the patient's lab results. 12/30/24 05:40 12/30/24 05:40 Labs: Laboratory Results - last 24 hr 12/29/24 11:30: Urine Color Cancelled, Urine Clarity Cancelled, Urine pH Cancelled, Ur Specific [place] Cancelled, U Specif Grav (Refrac) Cancelled, Urine Protein Cancelled, Urine Glucose (UA) Cancelled, Urine Ketones Cancelled, Urine Occult Blood Cancelled, Urine Nitrite Cancelled, Urine BilirubinCancelled, Urine Urobilinogen Cancelled, Ur Leukocyte Esterase Cancelled, Urine RBC Cancelled, Urine WBC Cancelled, Ur Squamous Epith Cells Cancelled, Ur Transition Epith Cell Cancelled, Ur Renal Epithelial Cell Cancelled, Calcium Oxalate Crystal Cancelled, Uric Acid Crystals Cancelled, Triple PhosCrystals Cancelled, Other Crystals Cancelled, Amorphous Sediment Cancelled, Urine Bacteria Cancelled , Hyaline Casts Cancelled, Fine Granular Casts Cancelled, Coarse Granular Casts Cancelled, Waxy Casts Cancelled, RBC Casts Cancelled, WBC Casts Cancelled, Urine Mucus Cancelled, Urine Trichomonas Cancelled, Urine YeastCancelled 12/30/24 05:40: WBC 11.8 H, RBC 3.76 L, Hgb 13.5, Hct 40.2, MCV 106.9 H, MCH 35.9 H, MCHC 33.6, RDWStd Deviation 54.1 H, RDW Coeff of Dorie 13.7, Plt Count 185, MPV 9.8, Immature Gran % (Auto) 1.000 H, Neut % (Auto) 88.6 H, Lymph % (Auto) 3.8 L, [place] % (Auto) 6.4, Eos % (Auto) 0.0, Baso % (Auto) 0.2, Absolute Neuts (auto) 10.5 H, Absolute Lymphs (auto) 0.45 L, Nucleated RBC % 0, Sodium 141, Potassium 4.0, Chloride 107, Carbon Dioxide 24.1, Anion Gap 10, BUN 20 H, Creatinine 0.70, Estim Creat Clear Calc 94.14, Est GFR (MDRD) Non-Af 97, BUN/Creatinine Ratio 29.0 H, Glucose 125 H, Calcium 9.0 Micro: Microbiology 12/28/24 16:30 Sputum, Induced/Lukens Respiratory Culture - Preliminary Staphylococcus aureus 12/29/24 11:30 Mucosa - Nasopharyngeal SARS-CoV-2, Influenza & RSV (PCR) - Final 12/27/24 14:03 Sputum, Induced/Lukens Respiratory Culture - Final Mixed normal respiratory adrian. No Streptococcus pneumoniae, beta-hemolytic Streptococcus or Staphylococcus aureus isolated. Physical Exam Const alert, oriented x3 and no apparent distress General Appearance: cooperative HEENT normocephalic, head/scalp atraumatic and moist oral mucous membranes Eyes PERRL, EOMs intact bilaterally and conjunctivae normal Neck supple General: trachea midline Chest inspection of chest normal Resp normal respiratory effort Auscultation: Negative for rales, rhonchi or wheezes Cardio regular rate and regular rhythm GI normal to inspection, nondistended, normoactive bowel sounds Extremity no clubbing, cyanosis or edema Skin no rashes or lesions noted Neuro CN's II-XII intact bilaterally, moves all extremities and no focal motor deficits Psych cooperative and affect normal Charges/Coding Visit Charges Inpatient E&M: 34422 Subs Hosp L2 12/30/24 1045 Cosigner Signature (if applicable): CC: ~ Signed [facility]06-09-2025 Discharge summary [facility] Medical Records Department [address] [place] [address] Discharge Summary 12/30/24 0854 MR#: [id number] Acct: [id number] Name: NAZARIO HUTTON Rep #:[id number] : 1950 74 From: Alexi Olivas DO PCP: Dr. Valeriano Beasley MD Status:ADM IN Location: ICU ICU07-1 Providers Date of Admission: 12/27/24 Primary Care Physician: Dr. Valeriano Beasley MD Consultations 12/27/24 16:14 Consult: Hog Scalder / Pulmonary Medicine Routine Consulting Provider: Intensivists/Pulmonary Med Reason for Consult: Acute respiratory failure secondary to angioedema EMERGENT Consult: No MD Notified: Yes Date Notified: 12/27/24 Time Notified: 14:08 Method of Notification: Verbal Reason For Visit: ACUTE RESPIRATORY FAILURE 2/2 ANGIOEDEMA Diagnosis Discharge Diagnosis (1) Acute respiratory failure: Status: Acute Code(s): J96.00 - Acute respiratory failure, unspecified whether with hypoxia or hypercapnia Plan: 2/2 angioedema. Required intubation to prevent respiratory collapse given the angioedema. Sedation w fentanyl and dexmedetomidine gtt. [facility] consult Extubated 12/29 (2) Angioedema: Status: Acute Code(s): T78.3XXA - Angioneurotic edema, initial encounter Plan: unclear etiology. No current ACEi/ARB on home list. Has had angioedema from losartan in the past. Iwould be concerned about hereditary etiology. C1 esterase ordered. Follow up with allergy as oupt. Will need steroids and epi pen upon discharge. Plan Eosinophilia: resolved. Lymphopenia: ongoing. Follow up with hematology as outpt. VTE prophylaxis: LMWH. Monitor overnight and if does well, should be ready for discharge 12/30. Medications at Discharge Home Medications allopurinol 100 mg tablet 100 mg PO DAILY GOUT 03/25/22 atorvastatin 80 mg tablet 80 mg PO QHS CHOLESTEOL 03/25/22 ezetimibe 10 mg tablet 10 mg PO QHS CHOLESTEROL 09/02/22 nitroglycerin 0.4 mg sublingual tablet 0.4 mg sublingual UD PRN Chest Pain 09/02/22 ascorbic acid (vitamin C) 500 mg tablet 1,000 mg (2 x 500 mg) PO BIDCM 30 days #120 tabs 09/09/22 cholecalciferol (vitamin D3) 125 mcg (5,000 unit) capsule 125 mcg PO DAILY supplement 09/01/23 omega 3-dha 100 mg-epa 400 mg-fish oil 1,000 mg capsule 1 cap PO DAILY PRN supplement 09/01/23 vitamin B complex (B Complex-Vitamin B12 tablet) 1 tab PO DAILY feet 09/01/23 isosorbide mononitrate 30 mg tablet,extended release 24 hr 30 mg PO QAM bp 04/15/24 amlodipine 5 mg tablet 5 mg PO QDAY bp 09/19/24 carvedilol 12.5 mg tablet 12.5 mg PO BID bp 09/19/24 fexofenadine 180 mg tablet 180 mg PO QODAY allergies 09/19/24 gabapentin 300 mg capsule 600 mg PO BID neuropathy 09/19/24 doxepin 25 mg capsule 25 mg PO QHS mood 11/05/24 aspirin 81 mg capsule 81 mg PO DAILY heart 12/29/24 epinephrine 0.3 mg/0.3 mL injection, auto-injector (EpiPen) 0.3 mg (0.3 mL) IM X1 PRN anaphylaxis/angioedema #1 ea 12/30/24 prednisone 20 mg tablet 40 mg (2 x 20 mg) PO DAILY #10 tabs 12/30/24 Hospital Course Operations None Procedures None Summary of Care Provided Minutes Spent on Discharge: 32 Hospital Course: Patient presented with angioedema and was intubated due to impending airway collapse. Patient started on steroids and has done well. Patient was intubatedthen extubated on the eighth. Patient will bedischarged home to continue with prednisone. Patient previously had angioedema due to losartan in the past but she is no longer taking or any other JOSE inhibitor's. Concern for hereditary angioedema and a C1 esterase was ordered here but still pending. Patient is recommend to follow-up with an correctional corporal as outpatient. Patient also have prescription for EpiPen available in case anything like this or In the future. Patient advised that if this does happen again that if he does take EpiPen and best at better he should still seek attention. Weight / BMI Weight Weight: 95.9 kg Body Mass Index (BMI) 30.2 ABG / Lab / Microbiology Data 12/30/24 05:40 12/30/24 05:40 Laboratory: Laboratory Results - last 24 hr 12/29/24 11:30: Urine Color Cancelled, Urine Clarity Cancelled, Urine pH Cancelled, Ur Specific [place] Cancelled, U Specif Grav (Refrac) Cancelled, Urine Protein Cancelled, Urine Glucose (UA) Cancelled, Urine Ketones Cancelled, Urine Occult Blood Cancelled, Urine Nitrite Cancelled, Urine BilirubinCancelled, Urine Urobilinogen Cancelled, Ur Leukocyte Esterase Cancelled, Urine RBC Cancelled, Urine WBC Cancelled, Ur Squamous Epith Cells Cancelled, Ur Transition Epith Cell Cancelled, Ur Renal Epithelial Cell Cancelled, Calcium Oxalate Crystal Cancelled, Uric Acid Crystals Cancelled, Triple PhosCrystals Cancelled, Other Crystals Cancelled, Amorphous Sediment Cancelled, Urine Bacteria Cancelled , Hyaline Casts Cancelled, Fine Granular Casts Cancelled, Coarse Granular Casts Cancelled, Waxy Casts Cancelled, RBC Casts Cancelled, WBC Casts Cancelled, Urine Mucus Cancelled, Urine Trichomonas Cancelled, Urine YeastCancelled 12/30/24 05:40: WBC 11.8 H, RBC 3.76 L, Hgb 13.5, Hct 40.2, MCV 106.9 H, MCH 35.9 H, MCHC 33.6, RDWStd Deviation 54.1 H, RDW Coeff of Dorie 13.7, Plt Count 185, MPV 9.8, Immature Gran % (Auto) 1.000 H, Neut % (Auto) 88.6 H, Lymph % (Auto) 3.8 L, [place] % (Auto) 6.4, Eos % (Auto) 0.0, Baso % (Auto) 0.2, Absolute Neuts (auto) 10.5 H, Absolute Lymphs (auto) 0.45 L, Nucleated RBC % 0, Sodium 141, Potassium 4.0, Chloride 107, Carbon Dioxide 24.1, Anion Gap 10, BUN 20 H, Creatinine 0.70, Estim Creat Clear Calc 94.14, Est GFR (MDRD) Non-Af 97, BUN/Creatinine Ratio 29.0 H, Glucose 125 H, Calcium 9.0 Microbiology: Microbiology 12/28/24 16:30 Sputum, Induced/Lukens Respiratory Culture - Preliminary Staphylococcus aureus 12/29/24 11:30 Mucosa - Nasopharyngeal SARS-CoV-2, Influenza & RSV (PCR) - Final 12/27/24 14:03 Sputum, Induced/Lukens Respiratory Culture - Final Mixed normal respiratory adrian. No Streptococcus pneumoniae, beta-hemolytic Streptococcus or Staphylococcus aureus isolated. D/C Instructions Discharge Diet: No restrictions DC O2, CPAP, BIPAP Needs Home O2 Discharge instructions: No Meaningful Use Info Meaningful Use Meaningful Use Diagnoses (Choose all that apply): None applicable Ischemic Stroke Statin Dosing Therapy Reference: STATIN DOSE THERAPY REFERENCE: * Patients > 75 years receive moderate or high dose statin therapy. * Patients 75 years or YOUNGER should receive HIGH intensity statin dose unless contraindicated. You will be required to document reason for non-treatment if statin daily dose does not meet guidelines. HIGH DOSE STATIN THERAPY DAILY Atorvastatin > than or = to 40 mg Rosuvastatin > than or = to 20 mg Amlodipine + Atorvastatin > than or = to 2.5/40 mg Ezetimibe + Simvastatin 10/80 mg Simvastatin 80mg Discharge Plan Admission Admit Date/Time: 12/27/24 13:58 Primary Reason for Your Visit: Angioedema Attending Provider: Alexi Olivas Primary Care Provider: Valeriano Beasley Consulting Providers: Tony Shultz; Ej Murguia; Ricci Ballesteros; Homer Guzman; Tessa Ty; Joni Garsia; Viktor Francis; Belia Villanueva; Spike Floyd; Eric Dockery; Jim Marin; Isabel Hagen; Jaquelin Singh; Nelda Conde; Kasi Pina; Juancarlos Rebollar; Drew Gibbons; Kenan Crawley; Carl Lieberman; Ran Perea; Gregory Hernandez; Mohit Myers; Patria Crowe; Flakita Florentino Instructions Additional Instructions / Restrictions: You had recurrent angioedema but is unclear what was the cause this time. I do recommend a follow-up with allergy and immunology to further evaluate what may be the underlying cause for this. In the meantime you will be on a short courseof prednisone and I will have a prescription available for youfor an EpiPen if anything like this would happen the future. If you do have angioedema and you do use your EpiPen and even if you get better, please seek attention in the emergency room because it could potentially still get worse. Allergy and Immunology: [facility] [phone]. Dr. Ortiz [phone]. Discharge Orders/Prescriptions Prescriptions: New prednisone 20 mg tablet 40 mg PO DAILY Qty: 10 0RF epinephrine [EpiPen] 0.3 mg/0.3 mL auto-injector 0.3 mg IM X1 PRN (Reason: anaphylaxis/angioedema) Qty: 1 0RF Rx Instructions: for 2 doses Continued cholecalciferol (vitamin D3) 125 mcg (5,000 unit) capsule 125 mcg PO DAILY vitamin B complex [B Complex-Vitamin B12] Tablet 1 tab PO DAILY omega 5-xig-pch-fish oil 100-400-1,000 mg capsule 1 cap PO DAILY PRN (Reason: supplement) isosorbide mononitrate 30 mg tablet extended release 24 hr 30 mg PO QAM gabapentin 300 mg capsule 600 mg PO BID carvedilol 12.5 mg tablet 12.5 mg PO BID amlodipine 5 mg tablet 5 mg PO QDAY fexofenadine 180 mg tablet 180 mg PO QODAY doxepin 25 mg capsule 25 mg PO QHS atorvastatin 80 mg Tablet 80 mg PO QHS allopurinol 100 mg Tablet 100 mg PO DAILY nitroglycerin 0.4 mg tablet, sublingual 0.4 mg sublingual UD PRN (Reason: Chest Pain) Patient Comments: PLACE 1 TABLET UNDER TONGUE EVERY 5 MINS, UP TO 3 DOSES NEEDED FOR CHEST PAIN Rx Instructions: PLACE 1 TABLET UNDER TONGUE EVERY 5 MINS, UP TO 3 DOSES NEEDED FOR CHEST PAIN ezetimibe 10 mg tablet 10 mg PO QHS ascorbic acid (vitamin C) 500 mg Tablet 1,000 mg PO BIDCM 30 Days Qty: 120 0RF Rx Instructions: Take with iron tablets aspirin 81 mg capsule 81 mg PO DAILY Discontinued fluoxetine 40 mg capsule 40 mg PO QDAY Referrals / Follow Up: Valeriano Beasley MD [Primary Care Provider] - Within 2 Weeks Disposition Disposition (needs filled in before D/C Order can be placed): Home, Self Care Charges/Coding Visit Charges Inpatient E&M: 12001 Disch Hosp >30min 12/30/24 0904 Cosigner Signature (if applicable): CC: Dr. Alexi Olivas DO; Dr. Valeriano Beasley MD~ Signed [facility]06-09-2025 Progress note Author Homer Guzman [facility] Note Date/Time December 30, 2024 10:45 am [facility] Medical Records Department [address] [place] [address] Progress Note - Hog Scalder 12/30/24 0703 MR#: [id number] Acct: [id number] Name: KALINNAZARIO CAHVEZ VALERIANO Rep #:[id number] : 1950 74 From: Homer Guzman DO PCP: Dr. Valeriano Beasley MD Status:ADM IN Location: ICU ICU07-1 Assessment & Plan Assessment/Plan (1) Acute respiratory failure: (2) Angioedema: PLAN: Plan RECOMMENDATIONS: 1. Antimicrobials based upon culture results. 2. Okay to discontinue Benadryl, Pepcid and corticosteroids. 3. Recommend outpatient follow-up with allergy/immunology. 4. Encourage incentive spirometer use and mobilize patient as tolerated. 5. The patient is medically stable for transfer out of the intensive care unit. Will sign off at this time. IMPRESSIONS: 1. Acute hypoxemic respiratory failure Intubated in the emergency department secondary to history of recurrent angioedema of unclear etiology. With supportive care, including Benadryl, Pepcid and corticosteroids, the patient has improved from a clinical perspectiveand was able to be extubated on December 29. He is currently maintaining appropriateoxygen saturations on room air. The patient remains on antimicrobials due to staph and Streptococcus isolated from sputum culture. I would recommend that the patient follow-up with a local allergy/stapler machine for further workup of his recurrent angioedema. This note was generated with [employer] dictation software. It may contain incorrectwords, spelling, and punctuation that were not noted in checking the note beforesigning. Subjective Subjective The patient was seen and examined at the bedside this morning. Events from the last 24 hours have been reviewed. The patient is currently afebrile, hemodynamically stable and maintaining appropriate oxygen saturations on room air. The patient is unremarkably well from a respiratory perspective following extubation. White blood cell count is noted to be 12,000 with a stable hemoglobin and platelet count. Chemistry profile was unremarkable. Objective Data Objective Data The patient's most recent lab work, culture data and imaging studies have all been personally reviewed. Sputum cultures currently demonstrating growth of Staph aureus and Streptococcus. Vital Signs: Vital Signs Temp Pulse Resp BP Pulse Ox O2 Del Method O2 Flow Rate 98.6 F 58 L 14 145/87 H 93 Room Air 2 12/30/24 00:00 12/30/24 07:00 12/30/24 07:00 12/30/24 07:00 12/30/24 07:00 12/30/24 07:00 12/29/24 11:00 FiO2 30 12/29/24 09:00 Oxygen Flow Rate (L/min) 2 Oxygen Delivery Method Room Air Weight: 211 lb 6.773 oz Body Mass Index (BMI) 30.2 Intake & Output: Intake and Output for Last 24 Hours 12/28/24 12/29/24 12/30/24 23:59 23:59 23:59 Intake Total 2535.26 / 2559.56 1136.23 / 1136.23 800 / 800 Output Total 900 / 900 475 / 475 300 / 300 Balance 1635.26 / 1659.56 661.23 / 661.23 500 / 500 Lab / Micro Data Attestation: I reviewed the patient's lab results. 12/30/24 05:40 12/30/24 05:40 Labs: Laboratory Results - last 24 hr 12/29/24 11:30: Urine Color Cancelled, Urine Clarity Cancelled, Urine pH Cancelled, Ur Specific [place] Cancelled, U Specif Grav (Refrac) Cancelled, Urine Protein Cancelled, Urine Glucose (UA) Cancelled, Urine Ketones Cancelled, Urine Occult Blood Cancelled, Urine Nitrite Cancelled, Urine Bilirubin Cancelled, Urine Urobilinogen Cancelled, Ur Leukocyte Esterase Cancelled, Urine RBC Cancelled, Urine WBC Cancelled, Ur Squamous Epith Cells Cancelled, Ur Transition Epith Cell Cancelled, Ur Renal Epithelial Cell Cancelled, Calcium Oxalate Crystal Cancelled, Uric Acid Crystals Cancelled, Triple Phos Crystals Cancelled, Other Crystals Cancelled, Amorphous Sediment Cancelled, Urine Bacteria Cancelled, Hyaline Casts Cancelled, Fine Granular Casts Cancelled, Coarse Granular Casts Cancelled, Waxy Casts Cancelled, RBC Casts Cancelled, WBC Casts Cancelled, Urine Mucus Cancelled, Urine Trichomonas Cancelled, Urine YeastCancelled 12/30/24 05:40: WBC 11.8 H, RBC 3.76 L, Hgb 13.5, Hct 40.2, MCV 106.9 H, MCH 35.9 H, MCHC 33.6, RDW Std Deviation 54.1 H, RDW Coeff of Dorie 13.7, Plt Count 185, MPV 9.8, Immature Gran % (Auto) 1.000 H, Neut % (Auto) 88.6 H, Lymph % (Auto) 3.8 L, [place] % (Auto) 6.4, Eos % (Auto) 0.0, Baso % (Auto) 0.2, Absolute Neuts (auto) 10.5 H, Absolute Lymphs (auto) 0.45 L, Nucleated RBC % 0, Sodium 141, Potassium 4.0, Chloride 107, Carbon Dioxide 24.1, Anion Gap 10, BUN 20 H, Creatinine 0.70, Estim Creat Clear Calc 94.14, Est GFR (MDRD) Non-Af 97, BUN/Creatinine Ratio 29.0 H, Glucose 125 H, Calcium 9.0 Micro: Microbiology 12/28/24 16:30 Sputum, Induced/Lukens Respiratory Culture - Preliminary Staphylococcus aureus 12/29/24 11:30 Mucosa - Nasopharyngeal SARS-CoV-2, Influenza & RSV (PCR) - Final 12/27/24 14:03 Sputum, Induced/Lukens Respiratory Culture - Final Mixed normal respiratory adrian. No Streptococcus pneumoniae, beta-hemolytic Streptococcus or Staphylococcus aureus isolated. Physical Exam Const alert, oriented x3 and no apparent distress General Appearance: cooperative HEENT normocephalic, head/scalp atraumatic and moist oral mucous membranes Eyes PERRL, EOMs intact bilaterally and conjunctivae normal Neck supple General: trachea midline Chest inspection of chest normal Resp normal respiratory effort Auscultation: Negative for rales, rhonchi or wheezes Cardio regular rate and regular rhythm GI normal to inspection, nondistended, normoactive bowel sounds Extremity no clubbing, cyanosis or edema Skin no rashes or lesions noted Neuro CN's II-XII intact bilaterally, moves all extremities and no focal motor deficits Psych cooperative and affect normal Charges/Coding Visit Charges Inpatient E&M: 54031 Subs Hosp L2 12/30/24 1045 <Electronically signed by Homer Guzman DO> Cosigner Signature (if applicable): CC: ~ Signed [facility] Work Phone: 1(834) 781-991206-09-2025 [facility] Medical Records Department [address] [place] [address] Discharge Summary 12/30/24 0854 MR#: [id number] Acct: [id number] Name: NAZARIO HUTTON Rep #: [id number] : 1950 74 From: Alexi Olivas DO PCP: Dr. Valeriano Beasley MD Status:ADM IN Location: ICU ICU07-1 Providers Date of Admission: 12/27/24 Primary Care Physician: Dr. Valeriano Beasley MD Consultations 12/27/24 16:14 Consult: Hog Scalder / Pulmonary Medicine Routine Consulting Provider: Intensivists/Pulmonary Med Reason for Consult: Acute respiratory failure secondary to angioedema EMERGENT Consult: No MD Notified: Yes Date Notified: 12/27/24 Time Notified: 14:08 Method of Notification: Verbal Reason For Visit: ACUTE RESPIRATORY FAILURE 2/2 ANGIOEDEMA Diagnosis Discharge Diagnosis (1) Acute respiratory failure: Status: Acute Code(s): J96.00 - Acute respiratory failure, unspecified whether with hypoxia or hypercapnia Plan: 2/2 angioedema. Required intubation to prevent respiratory collapse given the angioedema. Sedation w fentanyl and dexmedetomidine gtt. [facility] consult Extubated 12/29 (2) Angioedema: Status: Acute Code(s): T78.3XXA - Angioneurotic edema, initial encounter Plan: unclear etiology. No current ACEi/ARB on home list. Has had angioedema from losartan in the past. I would be concerned about hereditary etiology. C1 esterase ordered. Follow up with allergy as oupt. Will need steroids and epi pen upon discharge. Plan Eosinophilia: resolved. Lymphopenia: ongoing. Follow up with hematology as outpt. VTE prophylaxis: LMWH. Monitor overnight and if does well, should be ready for discharge 12/30. Medications at Discharge Home Medications allopurinol 100 mg tablet 100 mg PO DAILY GOUT 03/25/22 atorvastatin 80 mg tablet 80 mg PO QHS CHOLESTEOL 03/25/22 ezetimibe 10 mg tablet 10 mg PO QHS CHOLESTEROL 09/02/22 nitroglycerin 0.4 mg sublingual tablet 0.4 mg sublingual UD PRN Chest Pain 09/02/22 ascorbic acid (vitamin C) 500 mg tablet 1,000 mg (2 x 500 mg) PO BIDCM 30 days #120 tabs 09/09/22 cholecalciferol (vitamin D3) 125 mcg (5,000 unit) capsule 125 mcg PO DAILY supplement 09/01/23 omega 3-dha 100 mg-epa 400 mg-fish oil 1,000 mg capsule 1 cap PO DAILY PRN supplement 09/01/23 vitamin B complex (B Complex-Vitamin B12 tablet) 1 tab PO DAILY feet 09/01/23 isosorbide mononitrate 30 mg tablet,extended release 24 hr 30 mg PO QAM bp 04/15/24 amlodipine 5 mg tablet 5 mg PO QDAY bp 09/19/24 carvedilol 12.5 mg tablet 12.5 mg PO BID bp 09/19/24 fexofenadine 180 mg tablet 180 mg PO QODAY allergies 09/19/24 gabapentin 300 mg capsule 600 mg PO BID neuropathy 09/19/24 doxepin 25 mg capsule 25 mg PO QHS mood 11/05/24 aspirin 81 mg capsule 81 mg PO DAILY heart 12/29/24 epinephrine 0.3 mg/0.3 mL injection, auto-injector (EpiPen) 0.3 mg (0.3 mL) IM X1 PRN anaphylaxis/angioedema #1 ea 12/30/24 prednisone 20 mg tablet 40 mg (2 x 20 mg) PO DAILY #10 tabs 12/30/24 Hospital Course Operations None Procedures None Summary of Care Provided Minutes Spent on Discharge: 32 Hospital Course: Patient presented with angioedema and was intubated due to impending airway collapse. Patient started on steroids and has done well. Patient was intubated then extubated on the eighth. Patient will be discharged home to continue with prednisone. Patient previously had angioedema due to losartan in the past but she is no longer taking or any other JOSE inhibitor's. Concern for hereditary angioedema and a C1 esterase was ordered here but still pending. Patient is recommend to follow-up with an correctional corporal as outpatient. Patient also have prescription for EpiPen available in case anything like this or In the future. Patient advised that if this does happen again that if he does take EpiPen and best at better he should still seek attention. Weight / BMI Weight Weight: 95.9 kg Body Mass Index (BMI) 30.2 ABG / Lab / Microbiology Data 12/30/24 05:40 12/30/24 05:40 Laboratory: Laboratory Results - last 24 hr 12/29/24 11:30: Urine Color Cancelled, Urine Clarity Cancelled, Urine pH Cancelled, Ur Specific [place] Cancelled, U Specif Grav (Refrac) Cancelled, Urine Protein Cancelled, Urine Glucose (UA) Cancelled, Urine Ketones Cancelled, Urine Occult Blood Cancelled, Urine Nitrite Cancelled, Urine Bilirubin Cancelled, Urine Urobilinogen Cancelled, Ur Leukocyte Esterase Cancelled, Urine RBC Cancelled, Urine WBC Cancelled, Ur Squamous Epith Cells Cancelled, Ur Transition Epith Cell Cancelled, Ur Renal Epithelial Cell Cancelled, Calcium Oxalate Crystal Cancelled, Uric Acid Crystals Cancelled, Triple Phos Crystals Cancelled, Other Crystals Cancelled, Amorphous Sediment Cancelled, Urine Bacteria Cancelled, Hyaline Casts Cancelled, Fine Granular Casts Cancelled, Coarse Granular Casts Ca (more content not included)...[facility]06-08-2025 Progress note Author Alexi Olivas [facility] Note Date/Time December 29, 2024 12:41 pm [facility] Medical Records Department [address] [place] [address] Progress Note - Hospitalist 12/29/24 0718 MR#: [id number] Acct: [id number] Name: NAZARIO HUTTON Rep #:[id number] : 1950 74 From: Alexi Olivas DO PCP: Dr. Valeriano Beasley MD Status:ADM IN [facility] for Visit Reason for Visit: Diagnoses Eosinophilia, unspecified (12/27/24) Lymphocytopenia (12/27/24) Monocytosis (symptomatic) (12/27/24) Acute respiratory failure, unspecified whether with hypoxia or hypercapnia (12/27/24) Angioneurotic edema, initial encounter (12/27/24) Subjective Subjective Successfully extubated today. Objective Data Objective Data Vital Signs: Vital Signs Temp Pulse Resp BP Pulse Ox O2 Del Method FiO2 37.4 C H 58 L 14 139/74 H 95 Mechanical Ventilator 30 12/29/24 06:00 12/29/24 07:16 12/29/24 07:16 12/29/24 06:00 12/29/24 07:16 12/29/24 06:00 12/29/24 07:16 Oxygen Delivery Method Mechanical Ventilator Weight: 96.2 kg Body Mass Index (BMI) 30.3 Intake & Output: Intake and Output for Last 24 Hours 12/27/24 12/28/24 12/29/24 23:59 23:59 23:59 Intake Total 226.97 / 249.13 2535.26 / 2559.56 185.25 / 185.25 Output Total 550 / 550 900 / 900 250 / 250 Balance -323.03 / -300.87 1635.26 / 1659.56 -64.75 / -64.75 Lab / Micro Data 12/29/24 04:50 12/29/24 04:50 Labs: Laboratory Results - last 24 hr 12/28/24 16:32: NT pro BNP II 2229 H, Procalcitonin 0.18 H 12/29/24 04:50: WBC 14.8 H, RBC 3.99 L, Hgb 14.3, Hct 42.1, MCV 105.5 H, MCH 35.8 H, MCHC 34.0, RDW Std Deviation 52.8 H, RDW Coeff of Dorie 13.5, Plt Count 198, MPV 10.0, Immature Gran % (Auto) 0.500, Neut % (Auto) 92.1 H, Lymph % (Auto) 2.9 L, [place] % (Auto) 4.4, Eos % (Auto) 0.0, Baso % (Auto) 0.1, Absolute Neuts (auto) 13.7 H, Absolute Lymphs (auto) 0.43 L, Nucleated RBC % 0, Sodium 139, Potassium 4.3, Chloride 105, Carbon Dioxide 21.8, Anion Gap 12, BUN 17, Creatinine 0.80, Estim Creat Clear Calc 94.28, Est GFR (MDRD) Non-Af 93, BUN/Creatinine Ratio 20.7 H, Glucose 169 H, Calcium 9.1, HIV 1&2 Antibody Nonreactive ABG Data ABG results: ABG 12/29/24 05:54 Specimen Type ART Sample Site R Radial pH 7.45 Bicarbonate Actual 27.9 H Total CO2 29 Base Excess 4 H O2 Saturation 96 O2 % 30.0 ABG pCO2 40.5 ABG pO2 76 Taty Test Positive Respiration Rate 14 O2 Delivery Device ET Tube Vent Mode AC Tidal Volume 500.0 POC PEEP 5 Radiography Diagnostic Testing: Radiology Impression Chest X-Ray 12/29/24 05:35 IMPRESSION: See above Reading Location: [facility] Physical Exam Const Constitutional Narrative: Saw before extubation. Was writing with pen and paper vociferously. Tolerating SBT without resp distress. HEENT head/scalp atraumatic and moist oral mucous membranes Neck no lymphadenopathy and supple Resp normal respiratory effort, no retractions, no use of accessory muscles and clearto auscultation bilaterally Cardio regular rate, regular rhythm, S1 normal heart sound and S2 normal heart sound GI normal to inspection, nondistended, normoactive bowel sounds, soft to palpation,non-tender and non-distended Extremity normal to inspection and full ROM Neuro Sensorium / Orientation: awake and alert Assessment & Plan Assessment/Plan (1) Acute respiratory failure: PLAN: 2/2 angioedema. Required intubation to prevent respiratory collapse given the angioedema. Sedation w fentanyl and dexmedetomidine gtt. [facility] consult Extubated 12/29 (2) Angioedema: PLAN: unclear etiology. No current ACEi/ARB on home list. Has had angioedema from losartan in the past. I would be concerned about hereditary etiology. C1 esterase ordered. Follow up with allergy as oupt. Will need steroids and epi pen upon discharge. PLAN: Plan Eosinophilia: resolved. Lymphopenia: ongoing. Follow up with hematology as outpt. VTE prophylaxis: LMWH. Monitor overnight and if does well, should be ready for discharge 12/30. Charges/Coding Visit Charges Inpatient E&M: 96573 Subs Hosp L2 12/29/24 1241 <Electronically signed by Alexi Olivas DO> Cosigner Signature (if applicable): CC: ~ Signed [facility] Work Phone: 1(146) 994-293406-08-2025 Progress note [facility] Medical Records Department [address] [place] [address] Progress Note - Hospitalist 12/29/24 0718 MR#: [id number] Acct: [id number] Name: NAZARIO HUTTON Rep #:[id number] : 1950 74 From: Alexi Olivas DO PCP: Dr. Valeriano Beasley MD Status:ADM IN Location: ICU ICU07- Reason for Visit Reason for Visit: Diagnoses Eosinophilia, unspecified (12/27/24) Lymphocytopenia (12/27/24) Monocytosis (symptomatic) (12/27/24) Acute respiratory failure, unspecified whether with hypoxia or hypercapnia (12/27/24) Angioneurotic edema, initial encounter (12/27/24) Subjective Subjective Successfully extubated today. Objective Data Objective Data Vital Signs: Vital Signs Temp Pulse Resp BP Pulse Ox O2 Del Method FiO2 37.4 C H 58 L 14 139/74 H 95 Mechanical Ventilator 30 12/29/24 06:00 12/29/24 07:16 12/29/24 07:16 12/29/24 06:00 12/29/24 07:16 12/29/24 06:00 12/29/24 07:16 Oxygen Delivery Method Mechanical Ventilator Weight: 96.2 kg Body Mass Index (BMI) 30.3 Intake & Output: Intake and Output for Last 24 Hours 12/27/24 12/28/24 12/29/24 23:59 23:59 23:59 Intake Total 226.97 / 249.13 2535.26 / 2559.56 185.25 / 185.25 Output Total 550 / 550 900 / 900 250 / 250 Balance -323.03 / -300.87 1635.26 / 1659.56 -64.75 / -64.75 Lab / Micro Data 12/29/24 04:50 12/29/24 04:50 Labs: Laboratory Results - last 24 hr 12/28/24 16:32: NT pro BNP II 2229 H, Procalcitonin 0.18 H 12/29/24 04:50: WBC 14.8 H, RBC 3.99 L, Hgb 14.3, Hct 42.1, MCV 105.5 H, MCH 35.8 H, MCHC 34.0, RDWStd Deviation 52.8 H, RDW Coeff of Dorie 13.5, Plt Count 198, MPV 10.0, Immature Gran % (Auto) 0.500,Neut % (Auto) 92.1 H, Lymph % (Auto) 2.9 L, [place] % (Auto) 4.4, Eos % (Auto) 0.0, Baso % (Auto) 0.1,Absolute Neuts (auto) 13.7 H, Absolute Lymphs (auto) 0.43 L, Nucleated RBC % 0, Sodium 139, Potassium 4.3, Chloride 105, Carbon Dioxide 21.8, Anion Gap 12, BUN 17, Creatinine 0.80, Estim Creat Clear Calc 94.28, Est GFR (MDRD) Non-Af 93, BUN/Creatinine Ratio 20.7 H, Glucose 169 H, Calcium 9.1, HIV 1&2 Antibody Nonreactive ABG Data ABG results: ABG 12/29/24 05:54 Specimen Type ART Sample Site R Radial pH 7.45 Bicarbonate Actual 27.9 H Total CO2 29 Base Excess 4 H O2 Saturation 96 O2 % 30.0 ABG pCO2 40.5 ABG pO2 76 Taty Test Positive Respiration Rate 14 O2 Delivery Device ET Tube Vent Mode AC Tidal Volume 500.0 POC PEEP 5 Radiography Diagnostic Testing: Radiology Impression Chest X-Ray 12/29/24 05:35 IMPRESSION: See above Reading Location: [facility] Physical Exam Const Constitutional Narrative: Saw before extubation. Was writing with pen and paper vociferously. Tolerating SBT without resp distress. HEENT head/scalp atraumatic and moist oral mucous membranes Neck no lymphadenopathy and supple Resp normal respiratory effort, no retractions, no use of accessory muscles and clearto auscultation bilaterally Cardio regular rate, regular rhythm, S1 normal heart sound and S2 normal heart sound GI normal to inspection, nondistended, normoactive bowel sounds, soft to palpation,non-tender and non-distended Extremity normal to inspection and full ROM Neuro Sensorium / Orientation: awake and alert Assessment & Plan Assessment/Plan (1) Acute respiratory failure: PLAN: 2/2 angioedema. Required intubation to prevent respiratory collapse given the angioedema. Sedation w fentanyl and dexmedetomidine gtt. [facility] consult Extubated 12/29 (2) Angioedema: PLAN: unclear etiology. No current ACEi/ARB on home list. Has had angioedema from losartan in the past. I would be concerned about hereditary etiology. C1 esterase ordered. Follow up with allergy as oupt. Will need steroids and epi pen upon discharge. PLAN: Plan Eosinophilia: resolved. Lymphopenia: ongoing. Follow up with hematology as outpt. VTE prophylaxis: LMWH. Monitor overnight and if does well, should be ready for discharge 12/30. Charges/Coding Visit Charges Inpatient E&M: 79362 Subs Hosp L2 12/29/24 1241 Cosigner Signature (if applicable): CC: ~ Signed [facility]06-08-2025 Progress note Author Mohit Myers [facility] Note Date/Time December 29, 2024 9:55a m [facility] Medical Records Department [address] [place] [address] Progress Note - Hog Scalder 12/29/24 0919 MR#: [id number] Acct: [id number] Name: NAZARIO HUTTON Rep #:[id number] : 1950 74 From: Mohit Myers MD PCP: Dr. Valeriano Beasley MD Status:ADM IN Location: ICU ICU07-1 Objective Data Objective Data Vital Signs: Vital Signs Last response 3 Temperature 37.4 C H 12/29/24 06:00 Temperature Source Core 12/29/24 06:00 Pulse Rate 64 12/29/24 08:25 Respiratory Rate 17 12/29/24 08:25 Respiratory Effort Mechanically Ventilated 12/29/24 04:00 Respiratory Depth Normal 12/29/24 04:00 Respiratory Pattern Normal 12/29/24 08:25 Blood Pressure 139/74 H 12/29/24 06:00 Blood Pressure Mean 95 12/29/24 06:00 Blood Pressure Source Monitor 12/29/24 06:00 Blood Pressure Position Semi-Fowlers 12/29/24 06:00 Blood Pressure Location Right Arm 12/29/24 06:00 Pulse Ox 94 12/29/24 08:25 Oxygen Delivery Method Mechanical Ventilator 12/29/24 06:00 Fraction of Inspired Oxygen (FIO2) 30 12/29/24 07:16 I&O: I&O Last 24 Hours 3 12/28/24 12/28/24 12/29/24 11:59 23:59 11:59 Intake Total 1265.43 / 2559.56 1269.83 / 2559.56 185.25 / 185.25 Output Total 400 / 900 500 / 900 250 / 250 Balance 865.43 / 1659.56 769.83 / 1659.56 -64.75 / -64.75 I&O: Total Stay 3 12/27/24 13:13 thru 12/29/24 08:24 Intake Total 2947.48 Output Total 1700 Balance 1247.48 Current Meds Ordered / Administered: Current meds ordered / Administered 3 Generic Name Dose Route Start Last Admin Trade Name Freq PRN Reason Stop Dose Admin Acetaminophen 650 mg 12/27/24 16:14 Acetaminophen 325 Mg Tablet PO Q6H PRN PRN Pain 1-10 Or Fever>100.7 Chlorhexidine Gluconate 15 ml 12/28/24 10:00 12/28/24 22:21 Chlorhexidine 15 Ml PO 15 ml BID YASMIN Administration Diphenhydramine HCl 25 mg 12/27/24 18:00 12/29/24 05:17 Diphenhydramine 50 Mg/Ml Syringe IV 25 mg Q6 YASMIN Administration Enoxaparin Sodium 40 mg 12/28/24 10:00 12/28/24 12:32 Enoxaparin 40 Mg/0.4 Ml Syringe SC 40 mg DAILY YASMIN Administration Hydralazine HCl 10 mg 12/27/24 18:20 12/29/24 01:40 Hydralazine 20 Mg/Ml Vial IV 10 mg Q6H PRN PRN Administration SBP>160 Protocol Fentanyl 100 mls @ 5 mls/hr 12/27/24 14:40 12/29/24 07:00 CONT INF 100 mcg/hr UD YASMIN 10 mls/hr Titration Protocol 50 MCG/HR Famotidine 20 mg/ Sodium 10 mls @ 300 mls/hr 12/27/24 22:00 12/28/24 22:41 Chloride IV Infused Q12 YASMIN Infusion Dexmedetomidine HCl 400 mcg/ 100 mls @ 11.879 mls/hr 12/27/24 16:14 12/29/24 07:00 Sodium Chloride CONT INF 0.6 mcg/kg/hr .Q8H26M YASMIN 14.3 mls/hr Titration Protocol 0.5 MCG/KG/HR Labetalol HCl 20 mg 12/27/24 16:14 12/28/24 07:09 Labetalol 20 Mg/4 Ml Vial IV 20 mg Q4H PRN PRN Administration SBP>160 Methylprednisolone 60 mg 12/27/24 22:00 12/29/24 05:15 Methylprednisolone 125 Mg/2 Ml Vial IV 60 mg Q8 YASMIN Administration Ondansetron HCl 4 mg 12/27/24 16:14 Ondansetron 4 Mg/2 Ml Vial IV Q8H PRN PRN NAUSEA/VOMITING Senna/Docusate Sodium 2 tablet 12/27/24 16:14 Senna/Docusate Sodium 1 Tablet PO BID PRN PRN Constipation Sodium Chloride 10 - 40 ml 12/27/24 16:18 12/28/24 22:21 0.9% Saline Lock 10 Ml Syringe IV 40 ml UD PRN Administration SALINE FLUSH Lab / Micro Data 12/29/24 04:50 12/29/24 04:50 Labs: Laboratory Results - last 24 hr 12/28/24 16:32: NT pro BNP II 2229 H, Procalcitonin 0.18 H 12/29/24 04:50: WBC 14.8 H, RBC 3.99 L, Hgb 14.3, Hct 42.1, MCV 105.5 H, MCH 35.8 H, MCHC 34.0, RDW Std Deviation 52.8 H, RDW Coeff of Dorie 13.5, Plt Count 198, MPV 10.0, Immature Gran % (Auto) 0.500, Neut % (Auto) 92.1 H, Lymph % (Auto) 2.9 L, [place] % (Auto) 4.4, Eos % (Auto) 0.0, Baso % (Auto) 0.1, Absolute Neuts (auto) 13.7 H, Absolute Lymphs (auto) 0.43 L, Nucleated RBC % 0, Sodium 139, Potassium 4.3, Chloride 105, Carbon Dioxide 21.8, Anion Gap 12, BUN 17, Creatinine 0.80, Estim Creat Clear Calc 94.28, Est GFR (MDRD) Non-Af 93, BUN/Creatinine Ratio 20.7 H, Glucose 169 H, Calcium 9.1, HIV 1&2 Antibody Nonreactive ABG Data ABG results: ABG 12/29/24 05:54 Specimen Type ART Sample Site R Radial pH 7.45 Bicarbonate Actual 27.9 H Total CO2 29 Base Excess 4 H O2 Saturation 96 O2 % 30.0 ABG pCO2 40.5 ABG pO2 76 Taty Test Positive Respiration Rate 14 O2 Delivery Device ET Tube Vent Mode AC Tidal Volume 500.0 POC PEEP 5 Imaging Radiology Impression Chest X-Ray 12/29/24 05:35 IMPRESSION: See above Reading Location: [facility] Assessment and Plan . Assessment and plan: Subjective: No acute events o/n. Awake, tolerating SBT this AM Physical Exam: Gen - NAD, obese, intubated HEENT - MMM. ETT in place. Mild tongue swelling improved now. +cuff leak Resp - Diminished in R base. Mechanically ventilated CV - RRR. No m/g/r Abd - Soft, NT, ND Ext - No c/c/e. Skin - No rashes? Neuro - Awake off sedation, following commands I have reviewed the pertinent vital sign, laboratory, and imaging data. ASSESSMENT: # Acute hypoxic respiratory failure - intubated mainly for airway protection in setting of angioedema # Recurrent angioedema - now 3rd reported episode in the past year at this facility. Attributed to losartan one of the times but does not appear taking recently. Also with labs suggesting chronic lymphopenia and eosinophilia, ?allergic etiology # Possible PNA # EtOH cirrhosis # h/o GI bleed from AVMs # Diastolic dysfunction # LBBB # CAD # HTN # Gout # Depression/anxiety PLAN: -Passed SBT this AM, will plan to extubate. -Cont IV solumedrol, pepcid, benadryl -Having low grade fever with mild procal elevation, slight worsening CXR findings. Will start empiric rocephin/doxy for now. f/u Cx, viral swab -IVF stopped. BNP elevated, may need diuretics if worsening. Prior TTE with EF 50%, diastolic dysfunction -f/u IgE, tryptase, C1 esterase -Given lymphopenia will also check hepatitis serologies. HIV negative -Monitor LFTs -Needs f/u in allergy clinic after discharge FEN/GI: NPO Proph DVT/GI: Lovenox, pepcid Updated son at bedside Critical Care Time: 50 mins The entirety of this encounter was done via telemedicine using both audio and video. Consent was unable to be obtained for the telemedicine encounter due to the patient's mental status. 12/29/24954 <Electronically signed by Mohit Myers MD> Cosigner Signature (if applicable): CC: ~ Signed [facility] Work Phone: [phone] 575-650606-08-2025 Progress note [facility] Medical Records Department [address] [place] [address] Progress Note - Hog Scalder 12/29/24918 MR#: [id number] Acct: [id number] Name: NAZARIO HUTTON Rep #:[id number] : 1950 74 From: Mohit Myers MD PCP: Dr. Valeriano Beasley MD Status:ADM IN Location: ICU ICU07-1 Objective Data Objective Data Vital Signs: Vital Signs Last response 3 Temperature 37.4 C H 12/29/24 06:00 Temperature Source Core 12/29/24 06:00 Pulse Rate 64 12/29/24 08:25 Respiratory Rate 17 12/29/24 08:25 Respiratory Effort Mechanically Ventilated 12/29/24 04:00 Respiratory Depth Normal 12/29/24 04:00 Respiratory Pattern Normal 12/29/24 08:25 Blood Pressure 139/74 H 12/29/24 06:00 Blood Pressure Mean 95 12/29/24 06:00 Blood Pressure Source Monitor 12/29/24 06:00 Blood Pressure Position Semi-Fowlers 12/29/24 06:00 Blood Pressure Location Right Arm 12/29/24 06:00 Pulse Ox 94 12/29/24 08:25 Oxygen Delivery Method Mechanical Ventilator 12/29/24 06:00 Fraction of Inspired Oxygen (FIO2) 30 12/29/24 07:16 I&O: I&O Last 24 Hours 3 12/28/24 12/28/24 12/29/24 11:59 23:59 11:59 Intake Total 1265.43 / 2559.56 1269.83 / 2559.56 185.25 / 185.25 Output Total 400 / 900 500 / 900 250 / 250 Balance 865.43 / 1659.56 769.83 / 1659.56 -64.75 / -64.75 I&O: Total Stay 3 12/27/24 13:13 thru 12/29/24 08:24 Intake Total 2947.48 Output Total 1700 Balance 1247.48 Current Meds Ordered / Administered: Current meds ordered / Administered 3 Generic Name Dose Route Start Last Admin Trade Name Dayna PRN Reason Stop Dose Admin Acetaminophen 650 mg 12/27/24 16:14 Acetaminophen 325 Mg Tablet PO Q6H PRN PRN Pain 1-10 Or Fever>100.7 Chlorhexidine Gluconate 15 ml 12/28/24 10:00 12/28/24 22:21 Chlorhexidine 15 Ml PO 15 ml BID YASMIN Administration Diphenhydramine HCl 25 mg 12/27/24 18:00 12/29/24 05:17 Diphenhydramine 50 Mg/Ml Syringe IV 25 mg Q6 YASMIN Administration Enoxaparin Sodium 40 mg 12/28/24 10:00 12/28/24 12:32 Enoxaparin 40 Mg/0.4 Ml Syringe SC 40 mg DAILY YASMIN Administration Hydralazine HCl 10 mg 12/27/24 18:20 12/29/24 01:40 Hydralazine 20 Mg/Ml Vial IV 10 mg Q6H PRN PRN Administration SBP>160 Protocol Fentanyl 100 mls @ 5 mls/hr 12/27/24 14:40 12/29/24 07:00 CONT INF 100 mcg/hr UD YASMIN 10 mls/hr Titration Protocol 50 MCG/HR Famotidine 20 mg/ Sodium 10 mls @ 300 mls/hr 12/27/24 22:00 12/28/24 22:41 Chloride IV Infused Q12 YASMIN Infusion Dexmedetomidine HCl 400 mcg/ 100 mls @ 11.879 mls/hr 12/27/24 16:14 12/29/24 07:00 Sodium Chloride CONT INF 0.6 mcg/kg/hr .Q8H26M YASMIN 14.3 mls/hr Titration Protocol 0.5 MCG/KG/HR Labetalol HCl 20 mg 12/27/24 16:14 12/28/24 07:09 Labetalol 20 Mg/4 Ml Vial IV 20 mg Q4H PRN PRN Administration SBP>160 Methylprednisolone 60 mg 12/27/24 22:00 12/29/24 05:15 Methylprednisolone 125 Mg/2 Ml Vial IV 60 mg Q8 YASMIN Administration Ondansetron HCl 4 mg 12/27/24 16:14 Ondansetron 4 Mg/2 Ml Vial IV Q8H PRN PRN NAUSEA/VOMITING Senna/Docusate Sodium 2 tablet 12/27/24 16:14 Senna/Docusate Sodium 1 Tablet PO BID PRN PRN Constipation Sodium Chloride 10 - 40 ml 12/27/24 16:18 12/28/24 22:21 0.9% Saline Lock 10 Ml Syringe IV 40 ml UD PRN Administration SALINE FLUSH Lab / Micro Data 12/29/24 04:50 12/29/24 04:50 Labs: Laboratory Results - last 24 hr 12/28/24 16:32: NT pro BNP II 2229 H, Procalcitonin 0.18 H 12/29/24 04:50: WBC 14.8 H, RBC 3.99 L, Hgb 14.3, Hct 42.1, MCV 105.5 H, MCH 35.8 H, MCHC 34.0, RDWStd Deviation 52.8 H, RDW Coeff of Dorie 13.5, Plt Count 198, MPV 10.0, Immature Gran % (Auto) 0.500,Neut % (Auto) 92.1 H, Lymph % (Auto) 2.9 L, [place] % (Auto) 4.4, Eos % (Auto) 0.0, Baso % (Auto) 0.1,Absolute Neuts (auto) 13.7 H, Absolute Lymphs (auto) 0.43 L, Nucleated RBC % 0, Sodium 139, Potassium 4.3, Chloride 105, Carbon Dioxide 21.8, Anion Gap 12, BUN 17, Creatinine 0.80, Estim Creat Clear Calc 94.28, Est GFR (MDRD) Non-Af 93, BUN/Creatinine Ratio 20.7 H, Glucose 169 H, Calcium 9.1, HIV 1&2 Antibody Nonreactive ABG Data ABG results: ABG 12/29/24 05:54 Specimen Type ART Sample Site R Radial pH 7.45 Bicarbonate Actual 27.9 H Total CO2 29 Base Excess 4 H O2 Saturation 96 O2 % 30.0 ABG pCO2 40.5 ABG pO2 76 Taty Test Positive Respiration Rate 14 O2 Delivery Device ET Tube Vent Mode AC Tidal Volume 500.0 POC PEEP 5 Imaging Radiology Impression Chest X-Ray 12/29/24 05:35 IMPRESSION: See above Reading Location: [facility] Assessment and Plan . Assessment and plan: Subjective: No acute events o/n. Awake, tolerating SBT this AM Physical Exam: Gen - NAD, obese, intubated HEENT - MMM. ETT in place. Mild tongue swelling improved now. +cuff leak Resp - Diminished in R base. Mechanically ventilated CV - RRR. No m/g/r Abd - Soft, NT, ND Ext - No c/c/e. Skin - No rashes? Neuro - Awake off sedation, following commands I have reviewed the pertinent vital sign, laboratory, and imaging data. ASSESSMENT: # Acute hypoxic respiratory failure - intubated mainly for airway protection in setting of angioedema # Recurrent angioedema - now 3rd reported episode in the past year at this facility. Attributed to losartan one of the times but does not appear taking recently. Also with labs suggesting chronic lymphopenia and eosinophilia, ?allergic etiology # Possible PNA # EtOH cirrhosis # h/o GI bleed from AVMs # Diastolic dysfunction # LBBB # CAD # HTN # Gout # Depression/anxiety PLAN: -Passed SBT this AM, will plan to extubate. -Cont IV solumedrol, pepcid, benadryl -Having low grade fever with mild procal elevation, slight worsening CXR findings. Will start empiric rocephin/doxy for now. f/u Cx, viral swab -IVF stopped. BNP elevated, may need diuretics if worsening. Prior TTE with EF 50%, diastolic dysfunction -f/u IgE, tryptase, C1 esterase -Given lymphopenia will also check hepatitis serologies. HIV negative -Monitor LFTs -Needs f/u in allergy clinic after discharge FEN/GI: NPO Proph DVT/GI: Lovenox, pepcid Updated son at bedside Critical Care Time: 50 mins The entirety of this encounter was done via telemedicine using both audio and video. Consent was unable to be obtained for the telemedicine encounter due to the patient's mental status. 12/29/24 0955 Cosigner Signature (if applicable): CC: ~ Signed [facility]06-08-2025 Radiology Diagnostic study note [facility] Imaging Services [address] [place] [address] Chest 1 View (Portable) MR#: [id number] Acct: [id number] Name: NAZARIO HUTTON Rep #: [id number] : 1950 M 74 From: Ebony Carr MD PCP: Dr. Valeriano Beasley MD Status: ADM IN Study:Chest 1 View (Portable) Date of Exam: 12/29/24 Exam# [id number] Ordering Dr: Zina Myers MD PROCEDURE: CHEST 1 VIEW (PORTABLE) 12/29/2024 REASON FOR EXAM: RESP FAILURE, INTUBATED TECHNIQUE: Frontal view of the chest. COMPARISON: 12/27/2024 FINDINGS: Hardware: Unchanged Heart: Heart size is mildly enlarged. Lungs: Interval increased airspace opacities in the lung bases, likely secondaryto atelectasis. No pneumothorax. No large pleural effusion. No focal consolidation. Bones: The bones are unremarkable. Other: RAD/Chest 1 View (Portable) IMPRESSION: See above Reading Location: [facility] CC: Dr. Valeriano Beasley MD; Dr. Mohit Myers MD ~ Industrial Editor: Signed [facility]06-07-2025 Consult note Author Mohit Myers [facility] Note Date/Time December 28, 2024 9:29p m [facility] Medical Records Department [address] [place] [address] Consultation - Hog Scalder 12/28/24 0916 MR#: [id number] Acct: [id number] Name: NAZARIO HUTTON Rep #:[id number] : 1950 74 From: Mohit Myers MD PCP: Dr. Valeriano Beasley MD Status:ADM IN Location: ICU ICU-1 HPI Consult Data Date of Consult: 12/28/24 HPI Narrative HPI Narrative: NAZARIO HUTTON, is a 74 yo M w/ recurrent angioedema, EtOH cirrhosis, h/o GI bleed from AVMs, CAD, HTN, gout, depression/anxiety who was admitted for angioedema. He apparently had episodes of angioedema here in Mar 2024 and Jul 2024 (unclear etiology but attributed to losartan one of the times). He apparently presented with recurrent tongue/facial swelling of unclear duration. Unclear if any particular trigger. Was urgently intubated in ED for airway protection. Currently stable on vent now. Started on IV solumedrol and H1/H2 blockers. ROS: Unable to obtain as pt intubated [facility] Medical History High serum parathyroid hormone (PTH) Heart murmur Elevated alkaline phosphatase level Elevated PSA Diverticulosis AVM (arteriovenous malformation) of colon Vitamin D deficiency Gout Alcohol abuse Essential hypertension Chest pain Anxiety Depression Myocardial infarct Chest pain Acute blood loss anemia Bloody diarrhea Coronary artery disease Atherosclerotic heart disease of [place] coronary artery without angina pectoris ST elevation SD (STEMI) (~11/29/21) Hyperlipidemia Hypertension Home Medications ?Medication ?Instructions ?Recorded ?Last Taken ?Type allopurinol 100 mg tablet 100 mg PO DAILY GOUT 2 09/02/22 History atorvastatin 80 mg tablet 80 mg PO DAILY CHOLESTEOL 09/01/22 History ezetimibe 10 mg tablet 10 mg PO DAILY CHOLESTEROL 0 09/02/22 09/01/22 History nitroglycerin 0.4 mg sublingual 0.4 mg sublingual UD P RN Chest Pain 09/02/22 Unknown History tablet ascorbic acid (vitamin C) 500 mg 1,000 mg (2 x 500 mg) PO BIDCM 30 09/09/22 Unknown Rx tablet days #120 tabs cholecalciferol (vitamin D3) 125 125 mcg PO DAILY 04/16 Unknown History mcg (5,000 unit) capsule omega 3-dha 100 mg-epa 400 mg-fish cap PO 09/01/23 Unk nown History oil 1,000 mg capsule vitamin B complex (B 1 tab PO DAILY 09/01/23 Unkn own History Complex-Vitamin B12 tablet) isosorbide mononitrate 30 mg 30 mg PO QAM 04/15/24 Unk nown History tablet,extended release 24 hr amlodipine 5 mg tablet 5 mg PO QDAY 09/19/24 Unknow n History carvedilol 12.5 mg tablet 12.5 mg PO BID 09/19/24 Unkn own History fexofenadine 180 mg tablet 180 mg PO QDAY 09/19/24 Unk nown History fluoxetine 40 mg capsule 40 mg PO QDAY 09/19/24 Unkno wn History gabapentin 300 mg capsule 300 mg PO BID 09/19/24 Unkno wn History doxepin 25 mg capsule 25 mg PO QHS 11/05/24 Unknow n History Allergy/AdvReac Type Severity Reaction Status Date / Time losartan Allergy Severe Angioedema Verified 12/27/24 13:13 hydrochlorothiazide Allergy Hives Verified 12/27/24 13:13 Family History Mother COPD (chronic obstructive pulmonary disease) Lung cancer Father Heart disease Hypertension Myocardial infarction age 53 following SD. Surgical History H/O colonoscopy S/P cataract extraction Presence of coronary angioplasty implant and graft (~11/29/21) Social History household members: none Smoking Status: Former smoker how long ago did patient quit smoking: Smoked from age 18, 1 ppd x 4 years and then quit. alcohol intake: current alcohol intake frequency: a few times a week Alcohol type: beer substance use type: does not use Objective Data Objective Data Vital Signs: Vital Signs Last response 3 Temperature 36.9 C 12/28/24 09:00 Temperature Source Core 12/28/24 09:00 Pulse Rate 74 12/28/24 09:14 Respiratory Rate 15 12/28/24 09:14 Respiratory Effort Mechanically Ventilated 12/28/24 08:00 Respiratory Depth Normal 12/28/24 08:00 Respiratory Pattern Normal 12/28/24 09:14 Blood Pressure 154/92 H 12/28/24 09:00 Blood Pressure Mean 112 12/28/24 09:00 Blood Pressure Source Monitor 12/28/24 09:00 Blood Pressure Position Semi-Fowlers 12/28/24 09:00 Blood Pressure Location Right Arm 12/28/24 09:00 Pulse Ox 94 12/28/24 09:14 Oxygen Delivery Method Mechanical Ventilator 12/28/24 09:00 Fraction of Inspired Oxygen (FIO2) 30 12/28/24 09:14 I&O: I&O Last 24 Hours 3 12/27/24 12/27/24 12/28/24 11:59 23:59 11:59 Intake Total 226.97 / 249.13 1216.83 / 1216.83 Output Total 550 / 550 400 / 400 Balance -323.03 / -300.87 816.83 / 816.83 I&O: Total Stay 3 12/27/24 13:13 thru 12/28/24 09:00 Intake Total 1443.80 Output Total 950 Balance 493.80 Current Meds Ordered / Administered: Current meds ordered / Administered 3 Generic Name Dose Route Start Last Admin Trade Name Freq PRN Reason Stop Dose Admin Acetaminophen 650 mg 12/27/24 16:14 Acetaminophen 325 Mg Tablet PO Q6H PRN PRN Pain 1-10 Or Fever>100.7 Diphenhydramine HCl 25 mg 12/27/24 18:00 12/28/24 05:07 Diphenhydramine 50 Mg/Ml Syringe IV 25 mg Q6 YASMIN Administration Enoxaparin Sodium 40 mg 12/28/24 10:00 Enoxaparin 40 Mg/0.4 Ml Syringe SC DAILY YASMIN Hydralazine HCl 10 mg 12/27/24 18:20 12/28/24 01:38 Hydralazine 20 Mg/Ml Vial IV 10 mg Q6H PRN PRN Administration SBP>160 Protocol Fentanyl 100 mls @ 5 mls/hr 12/27/24 14:40 12/28/24 09:00 CONT INF 100 mcg/hr UD YASMIN 10 mls/hr Titration Protocol 50 MCG/HR Famotidine 20 mg/ Sodium 10 mls @ 300 mls/hr 12/27/24 22:00 12/27/24 21:35 Chloride IV Infused Q12 YASMIN Infusion Lactated Ringer's 1,000 mls @ 75 mls/hr 12/27/24 16:14 12/28/24 05:29 IV 12/28/24 18:53 75 mls/hr .[id number] YASMIN Administration Dexmedetomidine HCl 400 mcg/ 100 mls @ 11.879 mls/hr 12/27/24 16:14 12/28/24 09:00 Sodium Chloride CONT INF 0.6 mcg/kg/hr .Q8H26M YASMIN 14.3 mls/hr Titration Protocol 0.5 MCG/KG/HR Labetalol HCl 20 mg 12/27/24 16:14 12/28/24 07:09 Labetalol 20 Mg/4 Ml Vial IV 20 mg Q4H PRN PRN Administration SBP>160 Methylprednisolone 60 mg 12/27/24 22:00 12/28/24 05:06 Methylprednisolone 125 Mg/2 Ml Vial IV 60 mg Q8 YASMIN Administration Ondansetron HCl 4 mg 12/27/24 16:14 Ondansetron 4 Mg/2 Ml Vial IV Q8H PRN PRN NAUSEA/VOMITING Senna/Docusate Sodium 2 tablet 12/27/24 16:14 Senna/Docusate Sodium 1 Tablet PO BID PRN PRN Constipation Sodium Chloride 10 - 40 ml 12/27/24 16:18 12/28/24 08:44 0.9% Saline Lock 10 Ml Syringe IV 20 ml UD PRN Administration SALINE FLUSH Lab / Micro Data 12/28/24 05:08 12/28/24 05:08 Labs: Laboratory Results - last 24 hr 12/27/24 13:31: WBC 7.5, RBC 3.95 L, Hgb 14.1, Hct 40.9, MCV 103.5 H, MCH 35.7 H, MCHC 34.5, RDW Std Deviation 51.5 H, RDW Coeff of Dorie 13.3, Plt Count 200, MPV9.7, Immature Gran % (Auto) 0.300, Neut % (Auto) 67.1, Lymph % (Auto) 9.8 L, [place] % (Auto) 11.2 H, Eos % (Auto) 10.8 H, Baso % (Auto) 0.8, Absolute Neuts (auto) 5.0, Absolute Lymphs (auto) 0.73 L, Nucleated RBC % 0, Sodium 139, Potassium 4.7, Chloride 105, Carbon Dioxide 23.1, Anion Gap 11, BUN 10, Creatinine 0.72, Estim Creat Clear Calc 93.74, Est GFR (MDRD) Non-Af 96, BUN/Creatinine Ratio 14.1, Glucose 95, Calcium 9.4, Total Bilirubin 0.80, AST 50H, ALT 34, Alkaline Phosphatase 151 H, Total Protein 7.4, Albumin 4.0, Globulin 3.5, Albumin/Globulin Ratio 1.1 12/27/24 13:39: Total Creatine Kinase 120, Triglycerides 131 12/28/24 05:08: WBC 9.0, RBC 4.00 L, Hgb 14.4, Hct 41.5, MCV 103.8 H, MCH 36.0 H, MCHC 34.7, RDW Std Deviation 51.4 H, RDW Coeff of Dorie 13.3, Plt Count 180, MPV9.8, Immature Gran % (Auto) 0.600, Neut % (Auto) 92.9 H, Lymph % (Auto) 5.0 L, [place] % (Auto) 1.4, Eos % (Auto) 0.0, Baso % (Auto) 0.1, Absolute Neuts (auto) 8.4 H, Absolute Lymphs (auto) 0.45 L, Nucleated RBC % 0, Sodium 137, Potassium 4.3, Chloride 105, Carbon Dioxide 19.7 L, Anion Gap 13, BUN 11, Creatinine 0.69 L, Estim Creat Clear Calc 94.14, Est GFR (MDRD) Non-Af 97, BUN/Creatinine Ratio 15.6, Glucose 178 H, Calcium 9.0, Phosphorus 3.3, Magnesium 2.1, Total Bilirubin0.59, AST 42 H, ALT 31, Alkaline Phosphatase 149 H, Total Protein 7.2, Albumin 3.7, Globulin 3.6, Albumin/Globulin Ratio 1.0 ABG Data ABG results: ABG 12/27/24 14:53 Specimen Type ART Sample Site L Radial pH 7.43 Bicarbonate Actual 24.9 Total CO2 26 Base Excess 1 O2 Saturation 97 O2 % 30.0 ABG pCO2 37.4 ABG pO2 91 Taty Test Positive Respiration Rate 14 O2 Delivery Device Adult Vent Vent Mode AC Tidal Volume 500.0 POC PEEP 5 Imaging Radiology Impression Chest X-Ray 12/27/24 13:53 IMPRESSION: Endotracheal tube seen with tip approximately 4 cm above the bernadine. Nasogastric tube seen coursing of the stomach, with tip excluded from view. No pneumothorax is seen. No pleural effusion is evident. Bilateral lower lung airspace disease is seen, [id number]. Differential diagnosis includes atelectasis and pneumonitis. No evidence of pulmonary edema. The cardiomediastinal silhouette is within the normal range. No acute osseous change is evident. Reading Location: [address] Assessment and Plan . Assessment and plan: Physical Exam: Gen - NAD, obese, intubated HEENT - MMM. ETT in place. Mild tongue swelling improved now Resp - CTAB. Mechanically ventilated CV - RRR. No m/g/r Abd - Soft, NT, ND Ext - No c/c/e. Skin - No rashes? Neuro - Sedated, intubated I have reviewed the pertinent vital sign, laboratory, and imaging data. ASSESSMENT: # Acute hypoxic respiratory failure - intubated mainly for airway protection in setting of angioedema # Recurrent angioedema - now 3rd reported episode in the past year at this facility. Attributed to losartan one of the times but does not appear taking recently. Also with labs suggesting chronic lymphopenia and eosinophilia, ?allergic etiology # Possible PNA # EtOH cirrhosis # h/o GI bleed from AVMs # CAD # HTN # Gout # Depression/anxiety PLAN: -Cont vent VC 500/14/5/30%. Follow ABG/CXR -Check for cuff leak in AM. Possible SBT tmrw -Cont IV solumedrol, pepcid, benadryl -Check IgE, tryptase, C1 esterase -Given lymphopenia will also check HIV, hepatitis serologies -Check procal. Low threshold for empiric abx if worsening -Monitor LFTs FEN/GI: NPO Proph DVT/GI: Lovenox, pepcid Critical Care Time: 60 mins The entirety of this encounter was done via telemedicine using both audio and video. Consent was unable to be obtained for the telemedicine encounter due to the patient's mental status. 12/28/242128 <Electronically signed by Mohit Myers MD> Cosigner Signature (if applicable): CC: Dr. Valeriano Beasley MD~ Signed [facility] Work Phone: 1(853) 858-118906-07-2025 Consult note [facility] Medical Records Department [address] [place] [address] Consultation - Hog Scalder 12/28/2416 MR#: [id number] Acct: [id number] Name: NAZARIO HUTTON Rep #:[id number] : 1950 74 From: Mohit Myers MD PCP: Dr. Valeriano Beasley MD Status:ADM IN Location: ICU ICU07-1 HPI Consult Data Date of Consult: 12/28/24 HPI Narrative HPI Narrative: NAZARIO HUTTON, is a 74 yo M w/ recurrent angioedema, EtOH cirrhosis, h/o GI bleed from AVMs, CAD,HTN, gout, depression/anxiety who was admitted for angioedema. He apparently had episodes of angioedema here in Mar 2024 and Jul 2024 (unclear etiology but attributed to losartan one of the times). He apparently presented with recurrent tongue/facial swelling of unclear duration. Unclear if any particular trigger. Was urgently intubated in ED for airway protection. Currently stable on vent now. Started on IV solumedrol and H1/H2 blockers. ROS: Unable to obtain as pt intubated [facility] Medical History High serum parathyroid hormone (PTH) Heart murmur Elevated alkaline phosphatase level Elevated PSA Diverticulosis AVM (arteriovenous malformation) of colon Vitamin D deficiency Gout Alcohol abuse Essential hypertension Chest pain Anxiety Depression Myocardial infarct Chest pain Acute blood loss anemia Bloody diarrhea Coronary artery disease Atherosclerotic heart disease of [place] coronary artery without angina pectoris ST elevation SD (STEMI) (~11/29/21) Hyperlipidemia Hypertension Home Medications ?Medication ?Instructions ?Recorded ?Last Taken ?Type allopurinol 100 mg tablet 100 mg PO DAILY GOUT 2 09/02/22 History atorvastatin 80 mg tablet 80 mg PO DAILY CHOLESTEOL 09/01/22 History ezetimibe 10 mg tablet 10 mg PO DAILY CHOLESTEROL 0 09/02/22 09/01/22 History nitroglycerin 0.4 mg sublingual 0.4 mg sublingual UD P RN Chest Pain 09/02/22 Unknown History tablet ascorbic acid (vitamin C) 500 mg 1,000 mg (2 x 500 mg) PO BIDCM 30 09/09/22 Unknown Rx tablet days #120 tabs cholecalciferol (vitamin D3) 125 125 mcg PO DAILY 04/16 Unknown History mcg (5,000 unit) capsule omega 3-dha 100 mg-epa 400 mg-fish cap PO 09/01/23 Unk nown History oil 1,000 mg capsule vitamin B complex (B 1 tab PO DAILY 09/01/23 Unkn own History Complex-Vitamin B12 tablet) isosorbide mononitrate 30 mg 30 mg PO QAM 04/15/24 Unk nown History tablet,extended release 24 hr amlodipine 5 mg tablet 5 mg PO QDAY 09/19/24 Unknow n History carvedilol 12.5 mg tablet 12.5 mg PO BID 09/19/24 Unkn own History fexofenadine 180 mg tablet 180 mg PO QDAY 09/19/24 Unk nown History fluoxetine 40 mg capsule 40 mg PO QDAY 09/19/24 Unkno wn History gabapentin 300 mg capsule 300 mg PO BID 09/19/24 Unkno wn History doxepin 25 mg capsule 25 mg PO QHS 11/05/24 Unknow n History Allergy/AdvReac Type Severity Reaction Status Date / Time losartan Allergy Severe Angioedema Verified 12/27/24 13:13 hydrochlorothiazide Allergy Hives Verified 12/27/24 13:13 Family History Mother COPD (chronic obstructive pulmonary disease) Lung cancer Father Heart disease Hypertension Myocardial infarction age 53 following SD. Surgical History H/O colonoscopy S/P cataract extraction Presence of coronary angioplasty implant and graft (~11/29/21) Social History household members: none Smoking Status: Former smoker how long ago did patient quit smoking: Smoked from age 18, 1 ppd x 4 years and then quit. alcohol intake: current alcohol intake frequency: a few times a week Alcohol type: beer substance use type: does not use Objective Data Objective Data Vital Signs: Vital Signs Last response 3 Temperature 36.9 C 12/28/24 09:00 Temperature Source Core 12/28/24 09:00 Pulse Rate 74 12/28/24 09:14 Respiratory Rate 15 12/28/24 09:14 Respiratory Effort Mechanically Ventilated 12/28/24 08:00 Respiratory Depth Normal 12/28/24 08:00 Respiratory Pattern Normal 12/28/24 09:14 Blood Pressure 154/92 H 12/28/24 09:00 Blood Pressure Mean 112 12/28/24 09:00 Blood Pressure Source Monitor 12/28/24 09:00 Blood Pressure Position Semi-Fowlers 12/28/24 09:00 Blood Pressure Location Right Arm 12/28/24 09:00 Pulse Ox 94 12/28/24 09:14 Oxygen Delivery Method Mechanical Ventilator 12/28/24 09:00 Fraction of Inspired Oxygen (FIO2) 30 12/28/24 09:14 I&O: I&O Last 24 Hours 3 12/27/24 12/27/24 12/28/24 11:59 23:59 11:59 Intake Total 226.97 / 249.13 1216.83 / 1216.83 Output Total 550 / 550 400 / 400 Balance -323.03 / -300.87 816.83 / 816.83 I&O: Total Stay 3 12/27/24 13:13 thru 12/28/24 09:00 Intake Total 1443.80 Output Total 950 Balance 493.80 Current Meds Ordered / Administered: Current meds ordered / Administered 3 Generic Name Dose Route Start Last Admin Trade Name Freq PRN Reason Stop Dose Admin Acetaminophen 650 mg 12/27/24 16:14 Acetaminophen 325 Mg Tablet PO Q6H PRN PRN Pain 1-10 Or Fever>100.7 Diphenhydramine HCl 25 mg 12/27/24 18:00 12/28/24 05:07 Diphenhydramine 50 Mg/Ml Syringe IV 25 mg Q6 YASMIN Administration Enoxaparin Sodium 40 mg 12/28/24 10:00 Enoxaparin 40 Mg/0.4 Ml Syringe SC DAILY YASMIN Hydralazine HCl 10 mg 12/27/24 18:20 12/28/24 01:38 Hydralazine 20 Mg/Ml Vial IV 10 mg Q6H PRN PRN Administration SBP>160 Protocol Fentanyl 100 mls @ 5 mls/hr 12/27/24 14:40 12/28/24 09:00 CONT INF 100 mcg/hr UD YASMIN 10 mls/hr Titration Protocol 50 MCG/HR Famotidine 20 mg/ Sodium 10 mls @ 300 mls/hr 12/27/24 22:00 12/27/24 21:35 Chloride IV Infused Q12 YASMIN Infusion Lactated Ringer's 1,000 mls @ 75 mls/hr 12/27/24 16:14 12/28/24 05:29 IV 12/28/24 18:53 75 mls/hr .[id number] YASMIN Administration Dexmedetomidine HCl 400 mcg/ 100 mls @ 11.879 mls/hr 12/27/24 16:14 12/28/24 09:00 Sodium Chloride CONT INF 0.6 mcg/kg/hr .Q8H26M YASMIN 14.3 mls/hr Titration Protocol 0.5 MCG/KG/HR Labetalol HCl 20 mg 12/27/24 16:14 12/28/24 07:09 Labetalol 20 Mg/4 Ml Vial IV 20 mg Q4H PRN PRN Administration SBP>160 Methylprednisolone 60 mg 12/27/24 22:00 12/28/24 05:06 Methylprednisolone 125 Mg/2 Ml Vial IV 60 mg Q8 YASMIN Administration Ondansetron HCl 4 mg 12/27/24 16:14 Ondansetron 4 Mg/2 Ml Vial IV Q8H PRN PRN NAUSEA/VOMITING Senna/Docusate Sodium 2 tablet 12/27/24 16:14 Senna/Docusate Sodium 1 Tablet PO BID PRN PRN Constipation Sodium Chloride 10 - 40 ml 12/27/24 16:18 12/28/24 08:44 0.9% Saline Lock 10 Ml Syringe IV 20 ml UD PRN Administration SALINE FLUSH Lab / Micro Data 12/28/24 05:08 12/28/24 05:08 Labs: Laboratory Results - last 24 hr 12/27/24 13:31: WBC 7.5, RBC 3.95 L, Hgb 14.1, Hct 40.9, MCV 103.5 H, MCH 35.7 H, MCHC 34.5, RDW Std Deviation 51.5 H, RDW Coeff of Dorie 13.3, Plt Count 200, MPV9.7, Immature Gran % (Auto) 0.300, Neut% (Auto) 67.1, Lymph % (Auto) 9.8 L, [place] % (Auto) 11.2 H, Eos % (Auto) 10.8 H, Baso % (Auto) 0.8, Absolute Neuts (auto) 5.0, Absolute Lymphs (auto) 0.73 L, Nucleated RBC % 0, Sodium 139, Potassium 4.7, Chloride 105, Carbon Dioxide 23.1, Anion Gap 11, BUN 10, Creatinine 0.72, Estim Creat Clear Calc93.74, Est GFR (MDRD) Non-Af 96, BUN/Creatinine Ratio 14.1, Glucose 95, Calcium 9.4, Total Bilirubin 0.80, AST 50H, ALT 34, Alkaline Phosphatase 151 H, Total Protein 7.4, Albumin 4.0, Globulin 3.5, Albumin/Globulin Ratio 1.1 12/27/24 13:39: Total Creatine Kinase 120, Triglycerides 131 12/28/24 05:08: WBC 9.0, RBC 4.00 L, Hgb 14.4, Hct 41.5, MCV 103.8 H, MCH 36.0 H, MCHC 34.7, RDW Std Deviation 51.4 H, RDW Coeff of Dorie 13.3, Plt Count 180, MPV9.8, Immature Gran % (Auto) 0.600, Neut% (Auto) 92.9 H, Lymph % (Auto) 5.0 L, [place] % (Auto) 1.4, Eos % (Auto) 0.0, Baso % (Auto) 0.1, Absolute Neuts (auto) 8.4 H, Absolute Lymphs (auto) 0.45 L, Nucleated RBC % 0, Sodium 137, Potassium 4.3, Chloride 105, Carbon Dioxide 19.7 L, Anion Gap 13, BUN 11, Creatinine 0.69 L, Estim Creat Clear Calc 94.14, Est GFR (MDRD) Non-Af 97, BUN/Creatinine Ratio 15.6, Glucose 178 H, Calcium 9.0, Phosphorus 3.3, Magnesium 2.1, Total Bilirubin0.59, AST 42 H, ALT 31, Alkaline Phosphatase 149 H, Total Protein 7.2, Albumin 3.7, Globulin 3.6, Albumin/Globulin Ratio 1.0 ABG Data ABG results: ABG 12/27/24 14:53 Specimen Type ART Sample Site L Radial pH 7.43 Bicarbonate Actual 24.9 Total CO2 26 Base Excess 1 O2 Saturation 97 O2 % 30.0 ABG pCO2 37.4 ABG pO2 91 Taty Test Positive Respiration Rate 14 O2 Delivery Device Adult Vent Vent Mode AC Tidal Volume 500.0 POC PEEP 5 Imaging Radiology Impression Chest X-Ray 12/27/24 13:53 IMPRESSION: Endotracheal tube seen with tip approximately 4 cm above the bernadine. Nasogastric tube seen coursingof the stomach, with tip excluded from view. No pneumothorax is seen. No pleural effusion is evident. Bilateral lower lung airspace disease is seen, [id number]. Differential diagnosis includes atelectasis and pneumonitis. No evidence of pulmonary edema. The cardiomediastinal silhouette is within the normal range. No acute osseous change is evident. Reading Location: [address] Assessment and Plan . Assessment and plan: Physical Exam: Gen - NAD, obese, intubated HEENT - MMM. ETT in place. Mild tongue swelling improved now Resp - CTAB. Mechanically ventilated CV - RRR. No m/g/r Abd - Soft, NT, ND Ext - No c/c/e. Skin - No rashes? Neuro - Sedated, intubated I have reviewed the pertinent vital sign, laboratory, and imaging data. ASSESSMENT: # Acute hypoxic respiratory failure - intubated mainly for airway protection in setting of angioedema # Recurrent angioedema - now 3rd reported episode in the past year at this facility. Attributed to losartan one of the times but does not appear taking recently. Also with labs suggesting chronic lymphopenia and eosinophilia, ?allergic etiology # Possible PNA # EtOH cirrhosis # h/o GI bleed from AVMs # CAD # HTN # Gout # Depression/anxiety PLAN: -Cont vent VC 500/14/5/30%. Follow ABG/CXR -Check for cuff leak in AM. Possible SBT tmrw -Cont IV solumedrol, pepcid, benadryl -Check IgE, tryptase, C1 esterase -Given lymphopenia will also check HIV, hepatitis serologies -Check procal. Low threshold for empiric abx if worsening -Monitor LFTs FEN/GI: NPO Proph DVT/GI: Lovenox, pepcid Critical Care Time: 60 mins The entirety of this encounter was done via telemedicine using both audio and video. Consent was unable to be obtained for the telemedicine encounter due to the patient's mental status. 12/28/242128 Cosigner Signature (if applicable): CC: Dr. Valeriano Beasley MD~ Signed [facility]06-07-2025 Progress note Author Alexi Olivas [facility] Note Date/Time December 28, 2024 2:04p [facility] Medical Records Department [address] [place] [id number] Progress Note - Hospitalist 12/28/24 0751 MR#: [id number] Acct: [id number] Name: NAZARIO HUTTON Rep #:[id number] : 1950 74 From: Alexi Olivas DO PCP: Dr. Valeriano Beasley MD Status:ADM IN Location: ICU ICU-1 Reason for Visit Reason for Visit: Diagnoses Eosinophilia, unspecified (12/27/24) Lymphocytopenia (12/27/24) Monocytosis (symptomatic) (12/27/24) Acute respiratory failure, unspecified whether with hypoxia or hypercapnia (12/27/24) Angioneurotic edema, initial encounter (12/27/24) Subjective Subjective Still on the ventilator. FiO2 weaned down. Requested paper and pen. Objective Data Objective Data Vital Signs: Vital Signs Temp Pulse Resp BP Pulse Ox O2 Del Method FiO2 36.9 C 71 14 168/91 H 93 Mechanical Ventilator 30 12/28/24 07:00 12/28/24 07:05 12/28/24 07:05 12/28/24 07:00 12/28/24 07:05 12/28/24 07:00 12/28/24 07:05 Oxygen Delivery Method Mechanical Ventilator Weight: 95.9 kg Body Mass Index (BMI) 30.2 Intake & Output: Intake and Output for Last 24 Hours 12/26/24 12/27/24 12/28/24 23:59 23:59 23:59 Intake Total 226.97 / 249.13 1138.23 / 1138.23 Output Total 550 / 550 400 / 400 Balance -323.03 / -300.87 738.23 / 738.23 Lab / Micro Data 12/28/24 05:08 12/28/24 05:08 Labs: Laboratory Results - last 24 hr 12/27/24 13:31: WBC 7.5, RBC 3.95 L, Hgb 14.1, Hct 40.9, MCV 103.5 H, MCH 35.7 H, MCHC 34.5, RDW Std Deviation 51.5 H, RDW Coeff of Dorie 13.3, Plt Count 200, MPV9.7, Immature Gran % (Auto) 0.300, Neut % (Auto) 67.1, Lymph % (Auto) 9.8 L, [place] % (Auto) 11.2 H, Eos % (Auto) 10.8 H, Baso % (Auto) 0.8, Absolute Neuts (auto) 5.0, Absolute Lymphs (auto) 0.73 L, Nucleated RBC % 0, Sodium 139, Potassium 4.7, Chloride 105, Carbon Dioxide 23.1, Anion Gap 11, BUN 10, Creatinine 0.72, Estim Creat Clear Calc 93.74, Est GFR (MDRD) Non-Af 96, BUN/Creatinine Ratio 14.1, Glucose 95, Calcium 9.4, Total Bilirubin 0.80, AST 50H, ALT 34, Alkaline Phosphatase 151 H, Total Protein 7.4, Albumin 4.0, Globulin 3.5, Albumin/Globulin Ratio 1.1 12/27/24 13:39: Total Creatine Kinase 120, Triglycerides 131 12/28/24 05:08: WBC 9.0, RBC 4.00 L, Hgb 14.4, Hct 41.5, MCV 103.8 H, MCH 36.0 H, MCHC 34.7, RDW Std Deviation 51.4 H, RDW Coeff of Dorie 13.3, Plt Count 180, MPV9.8, Immature Gran % (Auto) 0.600, Neut % (Auto) 92.9 H, Lymph % (Auto) 5.0 L, [place] % (Auto) 1.4, Eos % (Auto) 0.0, Baso % (Auto) 0.1, Absolute Neuts (auto) 8.4 H, Absolute Lymphs (auto) 0.45 L, Nucleated RBC % 0, Sodium 137, Potassium 4.3, Chloride 105, Carbon Dioxide 19.7 L, Anion Gap 13, BUN 11, Creatinine 0.69 L, Estim Creat Clear Calc 94.14, Est GFR (MDRD) Non-Af 97, BUN/Creatinine Ratio 15.6, Glucose 178 H, Calcium 9.0, Phosphorus 3.3, Magnesium 2.1, Total Bilirubin0.59, AST 42 H, ALT 31, Alkaline Phosphatase 149 H, Total Protein 7.2, Albumin 3.7, Globulin 3.6, Albumin/Globulin Ratio 1.0 ABG Data ABG results: ABG 12/27/24 14:53 Specimen Type ART Sample Site L Radial pH 7.43 Bicarbonate Actual 24.9 Total CO2 26 Base Excess 1 O2 Saturation 97 O2 % 30.0 ABG pCO2 37.4 ABG pO2 91 Taty Test Positive Respiration Rate 14 O2 Delivery Device Adult Vent Vent Mode AC Tidal Volume 500.0 POC PEEP 5 Radiography Diagnostic Testing: Radiology Impression Chest X-Ray 12/27/24 13:53 IMPRESSION: Endotracheal tube seen with tip approximately 4 cm above the bernadine. Nasogastric tube seen coursing of the stomach, with tip excluded from view. No pneumothorax is seen. No pleural effusion is evident. Bilateral lower lung airspace disease is seen, [id number]-right. Differential diagnosis includes atelectasis and pneumonitis. No evidence of pulmonary edema. The cardiomediastinal silhouette is within the normal range. No acute osseous change is evident. Reading Location: [address] Physical Exam Const Constitutional Narrative: on the ventilator. HEENT head/scalp atraumatic and moist oral mucous membranes Resp normal respiratory effort, no retractions, no use of accessory muscles and clearto auscultation bilaterally Cardio regular rate, regular rhythm, S1 normal heart sound and S2 normal heart sound GI normal to inspection, nondistended, normoactive bowel sounds, soft to palpation,non-tender and non-distended Neuro Sensorium / Orientation: awake Assessment & Plan Assessment/Plan (1) Acute respiratory failure: PLAN: 2/2 angioedema. Required intubation to prevent respiratory collapse given the angioedema. Sedation w fentanyl and dexmedetomidine gtt. CCM consult Extubate when ok with CCM. I informed nursing that I would be ready over the weekend if so decided to extubate if he were to require re-intubation. (2) Angioedema: PLAN: unclear etiology. No current ACEi/ARB on home list. Has had angioedema from losartan in the past. I would be concerned about hereditary etiology. C1 esterase ordered. Follow up with allergy as oupt. PLAN: Plan Eosinophilia: resolved. Lymphopenia: ongoing. Follow up with hematology as outpt. VTE prophylaxis: LMWH. Charges/Coding Visit Charges Inpatient E&M: 09364 Subs Hosp L2 12/28/24 140 <Electronically signed by Alexi Olivas DO> Cosigner Signature (if applicable): CC: ~ Signed [facility] Work Phone: 1(243) 113-963106-07-2025 Progress note [facility] Medical Records Department [address] [place] [address] Progress Note - Hospitalist 12/28/24 0751 MR#: [id number] Acct: [id number] Name: NAZARIO HUTTON Rep #:[id number] : 1950 74 From: Alexi Olivas DO PCP: Dr. Valeriano Beasley MD Status:ADM IN Location: ICU ICU07-1 Reason for Visit Reason for Visit: Diagnoses Eosinophilia, unspecified (12/27/24) Lymphocytopenia (12/27/24) Monocytosis (symptomatic) (12/27/24) Acute respiratory failure, unspecified whether with hypoxia or hypercapnia (12/27/24) Angioneurotic edema, initial encounter (12/27/24) Subjective Subjective Still on the ventilator. FiO2 weaned down. Requested paper and pen. Objective Data Objective Data Vital Signs: Vital Signs Temp Pulse Resp BP Pulse Ox O2 Del Method FiO2 36.9 C 71 14 168/91 H 93 Mechanical Ventilator 30 12/28/24 07:00 12/28/24 07:05 12/28/24 07:05 12/28/24 07:00 12/28/24 07:05 12/28/24 07:00 12/28/24 07:05 Oxygen Delivery Method Mechanical Ventilator Weight: 95.9 kg Body Mass Index (BMI) 30.2 Intake & Output: Intake and Output for Last 24 Hours 12/26/24 12/27/24 12/28/24 23:59 23:59 23:59 Intake Total 226.97 / 249.13 1138.23 / 1138.23 Output Total 550 / 550 400 / 400 Balance -323.03 / -300.87 738.23 / 738.23 Lab / Micro Data 12/28/24 05:08 12/28/24 05:08 Labs: Laboratory Results - last 24 hr 12/27/24 13:31: WBC 7.5, RBC 3.95 L, Hgb 14.1, Hct 40.9, MCV 103.5 H, MCH 35.7 H, MCHC 34.5, RDW Std Deviation 51.5 H, RDW Coeff of Dorie 13.3, Plt Count 200, MPV9.7, Immature Gran % (Auto) 0.300, Neut% (Auto) 67.1, Lymph % (Auto) 9.8 L, [place] % (Auto) 11.2 H, Eos % (Auto) 10.8 H, Baso % (Auto) 0.8, Absolute Neuts (auto) 5.0, Absolute Lymphs (auto) 0.73 L, Nucleated RBC % 0, Sodium 139, Potassium 4.7, Chloride 105, Carbon Dioxide 23.1, Anion Gap 11, BUN 10, Creatinine 0.72, Estim Creat Clear Calc93.74, Est GFR (MDRD) Non-Af 96, BUN/Creatinine Ratio 14.1, Glucose 95, Calcium 9.4, Total Bilirubin 0.80, AST 50H, ALT 34, Alkaline Phosphatase 151 H, Total Protein 7.4, Albumin 4.0, Globulin 3.5, Albumin/Globulin Ratio 1.1 12/27/24 13:39: Total Creatine Kinase 120, Triglycerides 131 12/28/24 05:08: WBC 9.0, RBC 4.00 L, Hgb 14.4, Hct 41.5, MCV 103.8 H, MCH 36.0 H, MCHC 34.7, RDW Std Deviation 51.4 H, RDW Coeff of Dorie 13.3, Plt Count 180, MPV9.8, Immature Gran % (Auto) 0.600, Neut% (Auto) 92.9 H, Lymph % (Auto) 5.0 L, [place] % (Auto) 1.4, Eos % (Auto) 0.0, Baso % (Auto) 0.1, Absolute Neuts (auto) 8.4 H, Absolute Lymphs (auto) 0.45 L, Nucleated RBC % 0, Sodium 137, Potassium 4.3, Chloride 105, Carbon Dioxide 19.7 L, Anion Gap 13, BUN 11, Creatinine 0.69 L, Estim Creat Clear Calc 94.14, Est GFR (MDRD) Non-Af 97, BUN/Creatinine Ratio 15.6, Glucose 178 H, Calcium 9.0, Phosphorus 3.3, Magnesium 2.1, Total Bilirubin0.59, AST 42 H, ALT 31, Alkaline Phosphatase 149 H, Total Protein 7.2, Albumin 3.7, Globulin 3.6, Albumin/Globulin Ratio 1.0 ABG Data ABG results: ABG 12/27/24 14:53 Specimen Type ART Sample Site L Radial pH 7.43 Bicarbonate Actual 24.9 Total CO2 26 Base Excess 1 O2 Saturation 97 O2 % 30.0 ABG pCO2 37.4 ABG pO2 91 Taty Test Positive Respiration Rate 14 O2 Delivery Device Adult Vent Vent Mode AC Tidal Volume 500.0 POC PEEP 5 Radiography Diagnostic Testing: Radiology Impression Chest X-Ray 12/27/24 13:53 IMPRESSION: Endotracheal tube seen with tip approximately 4 cm above the bernadine. Nasogastric tube seen coursingof the stomach, with tip excluded from view. No pneumothorax is seen. No pleural effusion is evident. Bilateral lower lung airspace disease is seen, [id number]-right. Differential diagnosis includes atelectasis and pneumonitis. No evidence of pulmonary edema. The cardiomediastinal silhouette is within the normal range. No acute osseous change is evident. Reading Location: [address] Physical Exam Const Constitutional Narrative: on the ventilator. HEENT head/scalp atraumatic and moist oral mucous membranes Resp normal respiratory effort, no retractions, no use of accessory muscles and clearto auscultation bilaterally Cardio regular rate, regular rhythm, S1 normal heart sound and S2 normal heart sound GI normal to inspection, nondistended, normoactive bowel sounds, soft to palpation,non-tender and non-distended Neuro Sensorium / Orientation: awake Assessment & Plan Assessment/Plan (1) Acute respiratory failure: PLAN: 2/2 angioedema. Required intubation to prevent respiratory collapse given the angioedema. Sedation w fentanyl and dexmedetomidine gtt. [facility] consult Extubate when ok with CCM. I informed nursing that I would be ready over the weekend if so decided to extubate if he were to require re-intubation. (2) Angioedema: PLAN: unclear etiology. No current ACEi/ARB on home list. Has had angioedema from losartan in the past. I would be concerned about hereditary etiology. C1 esterase ordered. Follow up with allergy as oupt. PLAN: Plan Eosinophilia: resolved. Lymphopenia: ongoing. Follow up with hematology as outpt. VTE prophylaxis: LMWH. Charges/Coding Visit Charges Inpatient E&M: 68397 Subs Hosp L2 12/28/24 1406 Cosigner Signature (if applicable): CC: ~ Signed [facility]06-06-2025 History and physical note Author Flakita Florentino [facility] Note Date/Time December 27, 2024 2:52p m [facility] Medical Records Department [address] [place] [id number] H&P Exam - Hospitalist 12/27/24 1411 MR#: [id number] Acct: [id number] Name: NAZARIO HUTTON Rep #:[id number] : 1950 74 From: Flakita Florentino DO PCP: Dr. Valeriano Beasley MD Status:REG ER Location: ED HPI - General General Date of Admission: 12/27/24 Date of Service: 12/27/24 Chief Complaint: Tongue and lip swelling HPI Narrative NAZARIO HUTTON, is a 74 M who presented to the emergency department at [facility] on 12/27/2024 with tongue and lip swelling. Patient has had previous angioedema events in March 2024 and July 2024 at this facility. It does appear that ARB has been listed as an allergy. He reported on presentation to the emergency department physician that there is no familial angioedema. Was reported he did not eat out anything out of the norm. I was unable to elicit a history as the patient was intubated at the time of my evaluation. Due to rapid swelling of the tongue immediate rapid sequence intubation was pursued by the emergency department. Vital signs on presentation showed a temperature of 98, heart rate 85, respiratory 16, blood pressure 165/97 and pulse ox was 99% on room air. CBC wasunremarkable. He does appear to have a chronic lymphopenia, monocytosis, and eosinophilia. Chemistry was unremarkable. AST is slightly elevated at 50. Chest x-ray shows ET tube and OG in good place with some plate atelectasis in the right middle lobe. EKG is normal sinus rhythm without any ST-T wave changesconcerning for acute ischemia. He will be admitted to the ICU and maintained on Solu-Medrol, H2 and H1 blockers. [facility] Medical History High serum parathyroid hormone (PTH) Heart murmur Elevated alkaline phosphatase level Elevated PSA Diverticulosis AVM (arteriovenous malformation) of colon Vitamin D deficiency Gout Alcohol abuse Essential hypertension Chest pain Anxiety Depression Myocardial infarct Chest pain Acute blood loss anemia Bloody diarrhea Coronary artery disease Atherosclerotic heart disease of [place] coronary artery without angina pectoris ST elevation SD (STEMI) (~11/29/21) Hyperlipidemia Hypertension Home Medications ?Medication ?Instructions ?Recorded ?Last Taken ?Type allopurinol 100 mg tablet 100 mg PO DAILY GOUT 2 09/02/22 History atorvastatin 80 mg tablet 80 mg PO DAILY CHOLESTEOL 09/01/22 History ezetimibe 10 mg tablet 10 mg PO DAILY CHOLESTEROL 0 09/02/22 09/01/22 History nitroglycerin 0.4 mg sublingual 0.4 mg sublingual UD P RN Chest Pain 09/02/22 Unknown History tablet ascorbic acid (vitamin C) 500 mg 1,000 mg (2 x 500 mg) PO BIDCM 30 09/09/22 Unknown Rx tablet days #120 tabs cholecalciferol (vitamin D3) 125 125 mcg PO DAILY 04/16 Unknown History mcg (5,000 unit) capsule omega 3-dha 100 mg-epa 400 mg-fish cap PO 09/01/23 Unk nown History oil 1,000 mg capsule vitamin B complex (B 1 tab PO DAILY 09/01/23 Unkn own History Complex-Vitamin B12 tablet) isosorbide mononitrate 30 mg 30 mg PO QAM 04/15/24 Unk nown History tablet,extended release 24 hr amlodipine 5 mg tablet 5 mg PO QDAY 09/19/24 Unknow n History carvedilol 12.5 mg tablet 12.5 mg PO BID 09/19/24 Unkn own History fexofenadine 180 mg tablet 180 mg PO QDAY 09/19/24 Unk nown History fluoxetine 40 mg capsule 40 mg PO QDAY 09/19/24 Unkno wn History gabapentin 300 mg capsule 300 mg PO BID 09/19/24 Unkno wn History doxepin 25 mg capsule 25 mg PO QHS 11/05/24 Unknow n History Allergy/AdvReac Type Severity Reaction Status Date / Time losartan Allergy Severe Angioedema Verified 12/27/24 13:13 hydrochlorothiazide Allergy Hives Verified 12/27/24 13:13 Family History Mother COPD (chronic obstructive pulmonary disease) Lung cancer Father Heart disease Hypertension Myocardial infarction age 53 following SD. Surgical History H/O colonoscopy S/P cataract extraction Presence of coronary angioplasty implant and graft (~11/29/21) Social History household members: none Smoking Status: Former smoker how long ago did patient quit smoking: Smoked from age 18, 1 ppd x 4 years and then quit. alcohol intake: current alcohol intake frequency: a few times a week Alcohol type: beer substance use type: does not use ROS Review of Systems ROS Unobtainable: due to endotracheal tube Vital Signs Vital Signs Vital Signs: 12/27/24 13:13 12/27/24 13:40 12/27/24 13:42 Temperature 98 F Temperature Source Oral Pulse Rate 85 Respiratory Rate 16 14 Respiratory Effort Short of Breath Respiratory Depth Normal Respiratory Pattern Normal Normal Blood Pressure 165/97 H Blood Pressure Mean 119 Pulse Ox 99 Oxygen Delivery Method Room Air Fraction of Inspired Oxygen (FIO2) 35 12/27/24 14:05 12/27/24 14:05 12/27/24 14:11 Temperature Temperature Source Pulse Rate 83 84 82 Respiratory Rate 19 H 14 16 Respiratory Effort Respiratory Depth Respiratory Pattern Blood Pressure 166/96 H 86/62 L 116/84 H Blood Pressure Mean 119 70 94 Pulse Ox 99 97 97 Oxygen Delivery Method Mechanical Ventilator Mechanical Ventilator Mechanical Ventilator Fraction of Inspired Oxygen (FIO2) Weight Weight: 95.028 kg Body Mass Index (BMI) 30.0 Physical Exam Const well nourished; Negative for alert, oriented x3, no apparent distress or averagebody habitus Constitutional Narrative: Intubated and sedated, obese, white male, lying in bed, mildly agitated bucking the vent HEENT normocephalic, head/scalp atraumatic and moist oral mucous membranes HEENT Narrative: Tongue swelling noted with secretions pooling in the side of his mouth and drooling Eyes EOMs intact bilaterally and conjunctivae normal Eyes Narrative: No scleral icterus Resp normal respiratory effort, no retractions, no use of accessory muscles and clearto auscultation bilaterally Auscultation: Negative for rales, rhonchi or wheezes Cardio regular rate, regular rhythm, S1 normal heart sound, S2 normal heart sound, no murmurs, no rub, no gallops and no clicks GI normal to inspection, nondistended, normoactive bowel sounds, soft to palpation and non-tender Extremity no clubbing, cyanosis or edema Extremity Narrative: 2+ pedal and radial pulses Neuro Neuro Narrative: Unable to fully assess as patient is intubated and sedated does spontaneously try to move upper and lower extremities Psych Psych Narrative: Unable to assess Results Lab / Micro Data 12/27/24 13:31 12/27/24 13:31 Labs: Laboratory Results - last 24 hr 12/27/24 13:31: WBC 7.5, RBC 3.95 L, Hgb 14.1, Hct 40.9, MCV 103.5 H, MCH 35.7 H, MCHC 34.5, RDW Std Deviation 51.5 H, RDW Coeff of Dorie 13.3, Plt Count 200, MPV9.7, Immature Gran % (Auto) 0.300, Neut % (Auto) 67.1, Lymph % (Auto) 9.8 L, [place] % (Auto) 11.2 H, Eos % (Auto) 10.8 H, Baso % (Auto) 0.8, Absolute Neuts (auto) 5.0, Absolute Lymphs (auto) 0.73 L, Nucleated RBC % 0, Sodium 139, Potassium 4.7, Chloride 105, Carbon Dioxide 23.1, Anion Gap 11, BUN 10, Creatinine 0.72, Estim Creat Clear Calc 93.74, Est GFR (MDRD) Non-Af 96, BUN/Creatinine Ratio 14.1, Glucose 95, Calcium 9.4, Total Bilirubin 0.80, AST 50H, ALT 34, Alkaline Phosphatase 151 H, Total Protein 7.4, Albumin 4.0, Globulin 3.5, Albumin/Globulin Ratio 1.1 Assessment & Plan Assessment/Plan (1) Acute respiratory failure: (2) Angioedema: (3) Eosinophilia: (4) Monocytosis: (5) Lymphopenia: PLAN: Plan Acute respiratory failure secondary to angioedema - Etiology is unclear but this is his third episode and his first intubation related to angioedema - Appears to have a previous angioedema with losartan - Is on amlodipine and this also can rarely cause angioedema so would discontinue - Currently intubated and on mechanical ventilation - Wean as able - Check for air leak and readiness for extubation daily - Will utilize Precedex sedation but may need additional agents as well - Solu-Medrol 60 Q8 - Famotidine 20 mg IV twice daily - Benadryl 25 mg every 6 hours - C1 esterase level is pending - Patient should follow-up as an outpatient with [facility] corpor[facility] if has not already done so Chronic monocytosis - On review of lab patient has had chronically elevated monocyte count - Should follow-up as an outpatient with hematology Chronic eosinophilia - Will review lab patient has a chronically elevated eosinophil count - Should follow-up as an outpatient with hematology Chronic lymphopenia - On review of lab patient has had chronically low lymphocyte count - Should review follow-up as an outpatient with hematology CAD/essential hypertension/hyperlipidemia - most recent cardiac catheterization from 09/03/2022 demonstrated as noted above, diffuse three-vessel disease involving the left anterior descending artery, totally occluded circumflex artery and diffuse disease of the right coronary artery - Will hold oral medications for now and restart accordingly after extubation - As needed labetalol for hypertension - At baseline patient takes amlodipine, carvedilol, isosorbide mononitrate, atorvastatin, and Zetia History of alcoholic cirrhosis - Follows with GI as an outpatient - Per documentation from GI was supposed to be on amlodipine however this is noton his med reconciliation but it has not been completed - It was last filled for 60 days on 09/19/2024 with no refill as of yet History of GI bleed secondary to colonic AVMs - No current issues - Will be on IV famotidine for angioedema Seasonal allergies - Hold home fexofenadine History of gout - Hold home allopurinol until extubated Neuropathy - Hold home gabapentin Depression/anxiety - Hold home fluoxetine - Hold home doxepin History of alcohol abuse - Still drinks a few times a week History of tobacco abuse - Remote and only smoked about a pack a day for 4 years DVT/GI prophylaxis - Lovenox subcu daily 40 mg - Famotidine 20 mg IV push twice daily CODE STATUS - Full code Charges/Coding Visit Charges Inpatient E&M: 56190 Init Hosp L2 12/27/24 1452 <Electronically signed by Flakita Florentino DO> Cosigner Signature (if applicable): CC: Dr. Valeriano Beasley MD; Dr. Flakita Florentino DO~ Signed [facility] Work Phone: [phone] Discharge summary Author Marino Holguin [facility] Note Date/Time December 27, 2024 2:20p m [facility] Medical Records Department [address] [place] [address] Emergency Department Summary 12/27/24 MR#: [id number] Acct: [id number] Name: NAZARIO HUTTON Rep #:[id number] : 1950 74 From: Marino Holguin MD PCP: Dr. Valeriano Beasley MD Status:REG ER Location: ED HPI History of Present Illness Chief Complaint: Allergic Reaction Detail of Chief Complaint: Angioedema Informant: patient Onset/Context/Timing Onset: Hours ( onset 0900) Context: Sudden Onset Timing: Continuous Quality: Slurred words, difficulty swallowing Mechanism/Context: Yes other Current Severity: Severe Maximum Severity: Severe Worsened by: Unknown Relieved by: nothing Associated Symptoms Associated Symptoms: other (Angioedema) Narrative Narrative: Patient is a 74-year-old gentleman. He presented in March and July 20232024 respectively with angioedema. He was not on an JOSE inhibitor or ARB at that time. He has no known history of familial angioedema. He denies rash. Hedenies itching. He denies cardiovascular symptoms or orthostatic symptoms. Prior similar symptoms: Yes Recent Illness/Hospitalization: No PFSH PFS Medical History High serum parathyroid hormone (PTH) Heart murmur Elevated alkaline phosphatase level Elevated PSA Diverticulosis AVM (arteriovenous malformation) of colon Vitamin D deficiency Gout Alcohol abuse Essential hypertension Chest pain Anxiety Depression Myocardial infarct Chest pain Acute blood loss anemia Bloody diarrhea Coronary artery disease Atherosclerotic heart disease of [place] coronary artery without angina pectoris ST elevation SD (STEMI) (~11/29/21) Hyperlipidemia Hypertension Home Medications ?Medication ?Instructions ?Recorded ?Last Taken ?Type allopurinol 100 mg tablet 100 mg PO DAILY GOUT 2 09/02/22 History atorvastatin 80 mg tablet 80 mg PO DAILY CHOLESTEOL 09/01/22 History ezetimibe 10 mg tablet 10 mg PO DAILY CHOLESTEROL 0 09/02/22 09/01/22 History nitroglycerin 0.4 mg sublingual 0.4 mg sublingual UD P RN Chest Pain 09/02/22 Unknown History tablet ascorbic acid (vitamin C) 500 mg 1,000 mg (2 x 500 mg) PO BIDCM 30 09/09/22 Unknown Rx tablet days #120 tabs cholecalciferol (vitamin D3) 125 125 mcg PO DAILY 04/16 Unknown History mcg (5,000 unit) capsule omega 3-dha 100 mg-epa 400 mg-fish cap PO 09/01/23 Unk nown History oil 1,000 mg capsule vitamin B complex (B 1 tab PO DAILY 09/01/23 Unkn own History Complex-Vitamin B12 tablet) isosorbide mononitrate 30 mg 30 mg PO QAM 04/15/24 Unk nown History tablet,extended release 24 hr amlodipine 5 mg tablet 5 mg PO QDAY 09/19/24 Unknow n History carvedilol 12.5 mg tablet 12.5 mg PO BID 09/19/24 Unkn own History fexofenadine 180 mg tablet 180 mg PO QDAY 09/19/24 Unk nown History fluoxetine 40 mg capsule 40 mg PO QDAY 09/19/24 Unkno wn History gabapentin 300 mg capsule 300 mg PO BID 09/19/24 Unkno wn History doxepin 25 mg capsule 25 mg PO QHS 11/05/24 Unknow n History Allergy/AdvReac Type Severity Reaction Status Date / Time losartan Allergy Severe Angioedema Verified 12/27/24 13:13 hydrochlorothiazide Allergy Hives Verified 12/27/24 13:13 Family History Mother COPD (chronic obstructive pulmonary disease) Lung cancer Father Heart disease Hypertension Myocardial infarction age 53 following SD. Surgical History H/O colonoscopy S/P cataract extraction Presence of coronary angioplasty implant and graft (~11/29/21) Social History household members: none Smoking Status: Former smoker how long ago did patient quit smoking: Smoked from age 18, 1 ppd x 4 years and then quit. alcohol intake: current alcohol intake frequency: a few times a week Alcohol type: beer substance use type: does not use ROS ROS ED Constitutional Constitutional ED: Denies chills, fever(s), subjective or sweats ENT ENT ED: Reports other Details: Swelling under his chin and tongue trouble swallowing and speaking ; Denies ear pain, rhinorrhea or sore throat Cardiovascular Cardiovascular: Denies chest pain or palpitations Respiratory/Chest Respiratory/Chest: Denies cough or dyspnea Gastrointestinal Gastrointestinal: Denies abdominal pain, nausea or vomiting Musculoskeletal Musculoskeletal: Denies arthralgias, myalgias or neck pain Integumentary Denies rash Hematologic/Lymphatic Hematologic/Lymphatic: Denies easy bleeding or easy bruising EXAM Physical Exam Const Vital Signs: 12/27/24 13:13 12/27/24 13:40 12/27/24 13:42 Temperature 98 F Temperature Source Oral Pulse Rate 85 Respiratory Rate 16 14 Respiratory Effort Short of Breath Respiratory Depth Normal Respiratory Pattern Normal Normal Blood Pressure 165/97 H Blood Pressure Mean 119 Pulse Ox 99 Oxygen Delivery Method Room Air Fraction of Inspired Oxygen (FIO2) 35 12/27/24 14:05 12/27/24 14:05 12/27/24 14:11 Temperature Temperature Source Pulse Rate 83 84 82 Respiratory Rate 19 H 14 16 Respiratory Effort Respiratory Depth Respiratory Pattern Blood Pressure 166/96 H 86/62 L 116/84 H Blood Pressure Mean 119 70 94 Pulse Ox 99 97 97 Oxygen Delivery Method Mechanical Ventilator Mechanical Ventilator Mechanical Ventilator Fraction of Inspired Oxygen (FIO2) Positive well nourished and well developed Constitutional Narrative: Patient difficulty swallowing. There is no drooling presently. He has garbled speech. He has significant angioedema. He has a Mallampati class IV General Appearance ED: well developed; Negative for pallor HEENT HEENT Narrative: Angioedema normocephalic and atraumatic; Negative for cyanosis of lips/distal nose or tenderness Eyes PERRL and EOMs intact bilaterally Neck full ROM, no lymphadenopathy, supple and no JVD Neck Narrative: Fullness in the submental region. Trachea is midline. Question of expiratory stridor. Cardio regular rate, regular rhythm, S1 normal heart sound, S2 normal heart sound and no murmurs GI non-tender, non-distended and no masses Extremity Extremity Narrative: There is no clubbing or cyanosis. Neuro oriented x3 and CN's II-XII intact bilaterally Sensorium / Orientation: alert Psych mental status grossly normal Skin General Skin Exam: Negative for jaundice or pallor Lesions: no lesions Rashes: no rashes MDM MDM MDM Narrative Medical decision making narrative: Patient with angioedema. Plan is intubation with glide scope. Will initially pretreat with oxygen. He will receive etomidate if I am able to visualize the cords or pass the scope past the tongue and not able to intubate because of him resisting will chemically paralyzed if cords are visualized otherwise we will place LMA and call airway team Since patient was initially evaluated and moved to room 1 he was reexamined his tongue is larger in size. Concerned that his angioedema is worsening and will compromise his airway. He was prepped for orotracheal ovation. He was explained risk benefits and potential need for a cricothyroidotomy. Under the conditions written consent was not obtained since this is a emergency and implied consent is applicable. Patient was preoxygenated. Patient received 20 mg etomidate. Vocal cords were seen attempt to place endotracheal tube was unsuccessful because patient was resisting. He received 1 mg/kg of succinylcholine. He was successfully intubated with a 7.0 endotracheal tube. There is swelling of the false cords. Patient was started on propofol drip since he has no allergy to soy products or egg products. Hospitalist was paged for admission for angioedema History & Record Review Additional record(s) reviewed:: Prior ED visit and Prior labs Lab Data Attestation: I reviewed the patient's lab results. Lab results narrative: CBC is remarked for an MCV of 103.5. Labs: Laboratory Results - last 24 hr 12/27/24 13:31 WBC 7.5 RBC 3.95 L Hgb 14.1 Hct 40.9 MCV 103.5 H MCH 35.7 H MCHC 34.5 RDW Std Deviation 51.5 H RDW Coeff of Dorie 13.3 Plt Count 200 MPV 9.7 Immature Gran % (Auto) 0.300 Neut % (Auto) 67.1 Lymph % (Auto) 9.8 L [place] % (Auto) 11.2 H Eos % (Auto) 10.8 H Baso % (Auto) 0.8 Absolute Neuts (auto) 5.0 Absolute Lymphs (auto) 0.73 L Nucleated RBC % 0 Sodium 139 Potassium 4.7 Chloride 105 Carbon Dioxide 23.1 Anion Gap 11 BUN 10 Creatinine 0.72 Estim Creat Clear Calc 93.74 Est GFR (MDRD) Non-Af 96 BUN/Creatinine Ratio 14.1 Glucose 95 Calcium 9.4 Total Bilirubin 0.80 AST 50 H ALT 34 Alkaline Phosphatase 151 H Total Protein 7.4 Albumin 4.0 Globulin 3.5 Albumin/Globulin Ratio 1.1 Radiography Chest X-Ray - ED: 1 View and Read by ED Physician (KUB was not obtained because chest x-ray shows endotracheal tube to be in proper position and NG in proper position. Patient has discoid atelectasis on the right may be an air bronchogram as well. Cardiac silhouette size is unremarkable. There is no abnormality osseous structures. There is no ev) EKG Initial EKG: Attestation: I personally reviewed and interpreted this EKG as follows: Interpretation: Sinus Rhythm (Rate is 82 with a first-degree AV block. [place] to the left. [place] interval is 270 ms. QRS duration is 156 ms and morphologyconsistent with left bundle branch block. QT duration 442 ms.) Management Discussion w/another healthcare provider: Hospitalist (Spoke with Dr. Florentino. She was informed I did not start a 22 iban Solu-Medrol however will order since reviewing to prior visits he got better with treatment. She was informed he hadnot been on an JOSE inhibitor in some time. When he was seen this past July he was not on an ARB but had been on) Treatment and Re-Evaluation Narrative: Did look up adverse reactions effects from amlodipine. Allergic reaction is listed however there is no mention specifically of angioedema. There is no mention of angioedema postmarketing reports through [employer]. Will review othersources. Of note patient was on amlodipine when seen for angioedema March 2024 and July of this year. Procedures Intubations Intubation Method: orotracheal Intubation Verification: Positive color change and Bilateral breath sounds confirmed Intubation Complications: no complications (Documented under the MDM portion of the medical record) Critical Care Time Critical Care Time: Yes Critical care time (excluding procedures): 30-74 minutes (31), Including time spent: (History, physical, documentation, review of prior records and laboratoryresults.), Discussing w/Patient &/or Family/Project Developer (Patient was informed that he needs to be intubated reason why he needs to be intubated and if unsuccessful he may require a cricothyroidotomy.), Discussing w/Consultants (Hospitalist Dr. Flakita Florentino was paged.), Arranging Admission or Transfer and Performing Direct Patient Care at Bedside Discharge Plan Dx/Rx/DC Orders Clinical Impression: Angioedema, Essential hypertension, Hyperlipidemia, Cirrhosis, alcoholic, Expiratory stridor, Dysphonia, Dysphagia, History of hypertension, History of coronary artery disease, Hypotension due to drugs, Eosinophilia, Lymphopenia Disposition Disposition: Acute Care Hospital [facility] What to do if you have Problems For any increased pain, shortness of breath, bleeding, nausea or vomiting, chestpain, or any unexpected problems, contact your Primary Care Provider. Call [facility] ([phone]) or report to the closest Emergency Room. Call 911 if necessary. 12/27/24 1420 <Electronically signed by Marino Holguin MD> Cosigner Signature (if applicable): CC: Dr. Valeriano Beasley MD ~ Signed [facility] Work Phone: [phone] History and physical note [facility] Medical Records Department [address] [place] [id number] H&P Exam - Hospitalist 12/27/24 1411 MR#: [id number] Acct: [id number] Name: NAZARIO HUTTON Rep #:[id number] : 1950 74 From: Flakita Florentino DO PCP: Dr. Valeriano Beasley MD Status:REG ER Location: ED HPI - General General Date of Admission: 12/27/24 Date of Service: 12/27/24 Chief Complaint: Tongue and lip swelling HPI Narrative NAZARIO HUTTON, is a 74 M who presented to the emergency department at [facility] on 12/27/2024 with tongue and lip swelling. Patient has had previous angioedema events in March 2024 and July 2024 at this facility. It does appear that ARB has been listed as an allergy. He reported on presentation to the emergency department physician that there is no familial angioedema. Wasreported he did not eat out anything out of the norm. I was unable to elicit a history as the patient was intubated at the time of my evaluation. Due to rapid swelling of the tongue immediate rapid sequence intubation was pursued by the emergency department. Vital signs on presentation showed a temperature of 98, heart rate 85, respiratory 16, blood pressure 165/97 and pulse ox was 99% on room air. CBC wasunremarkable. He does appear to have a chronic lymphopenia, monocytosis, and eosinophilia. Chemistry was unremarkable. AST is slightly elevated at 50. Chest x-ray shows ET tube and OG in good place with some plate atelectasis in the right middle lobe. EKG is normal sinus rhythm without any ST-T wave changesconcerning for acute ischemia. He will be admitted to the ICU and maintained on Solu-Medrol, H2 and H1 blockers. [facility] Medical History High serum parathyroid hormone (PTH) Heart murmur Elevated alkaline phosphatase level Elevated PSA Diverticulosis AVM (arteriovenous malformation) of colon Vitamin D deficiency Gout Alcohol abuse Essential hypertension Chest pain Anxiety Depression Myocardial infarct Chest pain Acute blood loss anemia Bloody diarrhea Coronary artery disease Atherosclerotic heart disease of [place] coronary artery without angina pectoris ST elevation [place] (STEMI) (~11/29/21) Hyperlipidemia Hypertension Home Medications ?Medication ?Instructions ?Recorded ?Last Taken ?Type allopurinol 100 mg tablet 100 mg PO DAILY GOUT 2 09/02/22 History atorvastatin 80 mg tablet 80 mg PO DAILY CHOLESTEOL 09/01/22 History ezetimibe 10 mg tablet 10 mg PO DAILY CHOLESTEROL 0 09/02/22 09/01/22 History nitroglycerin 0.4 mg sublingual 0.4 mg sublingual UD P RN Chest Pain 09/02/22 Unknown History tablet ascorbic acid (vitamin C) 500 mg 1,000 mg (2 x 500 mg) PO BIDCM 30 09/09/22 Unknown Rx tablet days #120 tabs cholecalciferol (vitamin D3) 125 125 mcg PO DAILY 04/16 Unknown History mcg (5,000 unit) capsule omega 3-dha 100 mg-epa 400 mg-fish cap PO 09/01/23 Unk nown History oil 1,000 mg capsule vitamin B complex (B 1 tab PO DAILY 09/01/23 Unkn own History Complex-Vitamin B12 tablet) isosorbide mononitrate 30 mg 30 mg PO QAM 04/15/24 Unk nown History tablet,extended release 24 hr amlodipine 5 mg tablet 5 mg PO QDAY 09/19/24 Unknow n History carvedilol 12.5 mg tablet 12.5 mg PO BID 09/19/24 Unkn own History fexofenadine 180 mg tablet 180 mg PO QDAY 09/19/24 Unk nown History fluoxetine 40 mg capsule 40 mg PO QDAY 09/19/24 Unkno wn History gabapentin 300 mg capsule 300 mg PO BID 09/19/24 Unkno wn History doxepin 25 mg capsule 25 mg PO QHS 11/05/24 Unknow n History Allergy/AdvReac Type Severity Reaction Status Date / Time losartan Allergy Severe Angioedema Verified 12/27/24 13:13 hydrochlorothiazide Allergy Hives Verified 12/27/24 13:13 Family History Mother COPD (chronic obstructive pulmonary disease) Lung cancer Father Heart disease Hypertension Myocardial infarction age 53 following SD. Surgical History H/O colonoscopy S/P cataract extraction Presence of coronary angioplasty implant and graft (~11/29/21) Social History household members: none Smoking Status: Former smoker how long ago did patient quit smoking: Smoked from age 18, 1 ppd x 4 years and then quit. alcohol intake: current alcohol intake frequency: a few times a week Alcohol type: beer substance use type: does not use ROS Review of Systems ROS Unobtainable: due to endotracheal tube Vital Signs Vital Signs Vital Signs: 12/27/24 13:13 12/27/24 13:40 12/27/24 13:42 Temperature 98 F Temperature Source Oral Pulse Rate 85 Respiratory Rate 16 14 Respiratory Effort Short of Breath Respiratory Depth Normal Respiratory Pattern Normal Normal Blood Pressure 165/97 H Blood Pressure Mean 119 Pulse Ox 99 Oxygen Delivery Method Room Air Fraction of Inspired Oxygen (FIO2) 35 12/27/24 14:05 12/27/24 14:05 12/27/24 14:11 Temperature Temperature Source Pulse Rate 83 84 82 Respiratory Rate 19 H 14 16 Respiratory Effort Respiratory Depth Respiratory Pattern Blood Pressure 166/96 H 86/62 L 116/84 H Blood Pressure Mean 119 70 94 Pulse Ox 99 97 97 Oxygen Delivery Method Mechanical Ventilator Mechanical Ventilator Mechanical Ventilator Fraction of Inspired Oxygen (FIO2) Weight Weight: 95.028 kg Body Mass Index (BMI) 30.0 Physical Exam Const well nourished; Negative for alert, oriented x3, no apparent distress or averagebody habitus Constitutional Narrative: Intubated and sedated, obese, white male, lying in bed, mildly agitated bucking the vent HEENT normocephalic, head/scalp atraumatic and moist oral mucous membranes HEENT Narrative: Tongue swelling noted with secretions pooling in the side of his mouth and drooling Eyes EOMs intact bilaterally and conjunctivae normal Eyes Narrative: No scleral icterus Resp normal respiratory effort, no retractions, no use of accessory muscles and clearto auscultation bilaterally Auscultation: Negative for rales, rhonchi or wheezes Cardio regular rate, regular rhythm, S1 normal heart sound, S2 normal heart sound, no murmurs, no rub, no gallops and no clicks GI normal to inspection, nondistended, normoactive bowel sounds, soft to palpation and non-tender Extremity no clubbing, cyanosis or edema Extremity Narrative: 2+ pedal and radial pulses Neuro Neuro Narrative: Unable to fully assess as patient is intubated and sedated does spontaneously try to move upper andlower extremities Psych Psych Narrative: Unable to assess Results Lab / Micro Data 12/27/24 13:31 12/27/24 13:31 Labs: Laboratory Results - last 24 hr 12/27/24 13:31: WBC 7.5, RBC 3.95 L, Hgb 14.1, Hct 40.9, MCV 103.5 H, MCH 35.7 H, MCHC 34.5, RDW Std Deviation 51.5 H, RDW Coeff of Dorie 13.3, Plt Count 200, MPV9.7, Immature Gran % (Auto) 0.300, Neut% (Auto) 67.1, Lymph % (Auto) 9.8 L, [place] % (Auto) 11.2 H, Eos % (Auto) 10.8 H, Baso % (Auto) 0.8, Absolute Neuts (auto) 5.0, Absolute Lymphs (auto) 0.73 L, Nucleated RBC % 0, Sodium 139, Potassium 4.7, Chloride 105, Carbon Dioxide 23.1, Anion Gap 11, BUN 10, Creatinine 0.72, Estim Creat Clear Calc93.74, Est GFR (MDRD) Non-Af 96, BUN/Creatinine Ratio 14.1, Glucose 95, Calcium 9.4, Total Bilirubin 0.80, AST 50H, ALT 34, Alkaline Phosphatase 151 H, Total Protein 7.4, Albumin 4.0, Globulin 3.5, Albumin/Globulin Ratio 1.1 Assessment & Plan Assessment/Plan (1) Acute respiratory failure: (2) Angioedema: (3) Eosinophilia: (4) Monocytosis: (5) Lymphopenia: PLAN: Plan Acute respiratory failure secondary to angioedema - Etiology is unclear but this is his third episode and his first intubation related to angioedema - Appears to have a previous angioedema with losartan - Is on amlodipine and this also can rarely cause angioedema so would discontinue - Currently intubated and on mechanical ventilation - Wean as able - Check for air leak and readiness for extubation daily - Will utilize Precedex sedation but may need additional agents as well - Solu-Medrol 60 Q8 - Famotidine 20 mg IV twice daily - Benadryl 25 mg every 6 hours - C1 esterase level is pending - Patient should follow-up as an outpatient with correctional corporal if has not already done so Chronic monocytosis - On review of lab patient has had chronically elevated monocyte count - Should follow-up as an outpatient with hematology Chronic eosinophilia - Will review lab patient has a chronically elevated eosinophil count - Should follow-up as an outpatient with hematology Chronic lymphopenia - On review of lab patient has had chronically low lymphocyte count - Should review follow-up as an outpatient with hematology CAD/essential hypertension/hyperlipidemia - most recent cardiac catheterization from 09/03/2022 demonstrated as noted above, diffuse three-vessel disease involving the left anterior descending artery, totally occluded circumflex artery and diffuse disease of the right coronary artery - Will hold oral medications for now and restart accordingly after extubation - As needed labetalol for hypertension - At baseline patient takes amlodipine, carvedilol, isosorbide mononitrate, atorvastatin, and Zetia History of alcoholic cirrhosis - Follows with GI as an outpatient - Per documentation from GI was supposed to be on amlodipine however this is noton his med reconciliation but it has not been completed - It was last filled for 60 days on 09/19/2024 with no refill as of yet History of GI bleed secondary to colonic AVMs - No current issues - Will be on IV famotidine for angioedema Seasonal allergies - Hold home fexofenadine History of gout - Hold home allopurinol until extubated Neuropathy - Hold home gabapentin Depression/anxiety - Hold home fluoxetine - Hold home doxepin History of alcohol abuse - Still drinks a few times a week History of tobacco abuse - Remote and only smoked about a pack a day for 4 years DVT/GI prophylaxis - Lovenox subcu daily 40 mg - Famotidine 20 mg IV push twice daily CODE STATUS - Full code Charges/Coding Visit Charges Inpatient E&M: 34071 Init Hosp L2 12/27/24 1452 Cosigner Signature (if applicable): CC: Dr. Valeriano Beasley MD; Dr. Flakita Florentino, DO~ Signed [facility]06-06-2025 Radiology Diagnostic study note [facility] Imaging Services [address] [place] [address] Chest 1 View (Portable) MR#: [id number] Acct: [id number] Name: NAZARIO HUTTON Rep #: [id number] : 1950 M 74 From: Hugh Berg MD PCP: Dr. Valeriano Beasley MD Status: REG ER Study:Chest 1 View (Portable) Date of Exam: 12/27/24 Exam# [id number] Ordering Dr: Jake Holguin MD PROCEDURE: CHEST 1 VIEW (PORTABLE) 12/27/2024 REASON FOR EXAM: INTUBATION TECHNIQUE: Two-view AP portable upright chest. COMPARISON: None. RAD/Chest 1 View (Portable) IMPRESSION: Endotracheal tube seen with tip approximately 4 cm above the bernadine. Nasogastric tube seen coursingof the stomach, with tip excluded from view. No pneumothorax is seen. No pleural effusion is evident. Bilateral lower lung airspace disease is seen, [id number]-[id number]. Differential diagnosis includes atelectasis and pneumonitis. No evidence of pulmonary edema. The cardiomediastinal silhouette is within the normal range. No acute osseous change is evident. Reading Location: [address] CC: Dr. Valeriano Beasley MD; Dr. Marino Holguin MD ~ Industrial Editor: Signed [facility]06-06-2025 Discharge summary [facility] Medical Records Department [address] [place] [address] Emergency Department Summary 12/27/24 MR#: [id number] Acct: [id number] Name: NAZARIO HUTTON Rep #:[id number] : 1950 74 From: Marino Holguin MD PCP: Dr. Valeriano Beasley MD Status:REG ER Location: ED HPI History of Present Illness Chief Complaint: Allergic Reaction Detail of Chief Complaint: Angioedema Informant: patient Onset/Context/Timing Onset: Hours ( onset 0900) Context: Sudden Onset Timing: Continuous Quality: Slurred words, difficulty swallowing Mechanism/Context: Yes other Current Severity: Severe Maximum Severity: Severe Worsened by: Unknown Relieved by: nothing Associated Symptoms Associated Symptoms: other (Angioedema) Narrative Narrative: Patient is a 74-year-old gentleman. He presented in March and July 20232024 respectively with angioedema. He was not on an JOSE inhibitor or ARB at that time. He has no known history of familial angioedema. He denies rash. Hedenies itching. He denies cardiovascular symptoms or orthostatic symptoms. Prior similar symptoms: Yes Recent Illness/Hospitalization: No PFSH PFS Medical History High serum parathyroid hormone (PTH) Heart murmur Elevated alkaline phosphatase level Elevated PSA Diverticulosis AVM (arteriovenous malformation) of colon Vitamin D deficiency Gout Alcohol abuse Essential hypertension Chest pain Anxiety Depression Myocardial infarct Chest pain Acute blood loss anemia Bloody diarrhea Coronary artery disease Atherosclerotic heart disease of [place] coronary artery without angina pectoris ST elevation SD (STEMI) (~11/29/21) Hyperlipidemia Hypertension Home Medications ?Medication ?Instructions ?Recorded ?Last Taken ?Type allopurinol 100 mg tablet 100 mg PO DAILY GOUT 2 09/02/22 History atorvastatin 80 mg tablet 80 mg PO DAILY CHOLESTEOL 09/01/22 History ezetimibe 10 mg tablet 10 mg PO DAILY CHOLESTEROL 0 09/02/22 09/01/22 History nitroglycerin 0.4 mg sublingual 0.4 mg sublingual UD P RN Chest Pain 09/02/22 Unknown History tablet ascorbic acid (vitamin C) 500 mg 1,000 mg (2 x 500 mg) PO BIDCM 30 09/09/22 Unknown Rx tablet days #120 tabs cholecalciferol (vitamin D3) 125 125 mcg PO DAILY 04/16 Unknown History mcg (5,000 unit) capsule omega 3-dha 100 mg-epa 400 mg-fish cap PO 09/01/23 Unk nown History oil 1,000 mg capsule vitamin B complex (B 1 tab PO DAILY 09/01/23 Unkn own History Complex-Vitamin B12 tablet) isosorbide mononitrate 30 mg 30 mg PO QAM 04/15/24 Unk nown History tablet,extended release 24 hr amlodipine 5 mg tablet 5 mg PO QDAY 09/19/24 Unknow n History carvedilol 12.5 mg tablet 12.5 mg PO BID 09/19/24 Unkn own History fexofenadine 180 mg tablet 180 mg PO QDAY 09/19/24 Unk nown History fluoxetine 40 mg capsule 40 mg PO QDAY 09/19/24 Unkno wn History gabapentin 300 mg capsule 300 mg PO BID 09/19/24 Unkno wn History doxepin 25 mg capsule 25 mg PO QHS 11/05/24 Unknow n History Allergy/AdvReac Type Severity Reaction Status Date / Time losartan Allergy Severe Angioedema Verified 12/27/24 13:13 hydrochlorothiazide Allergy Hives Verified 12/27/24 13:13 Family History Mother COPD (chronic obstructive pulmonary disease) Lung cancer Father Heart disease Hypertension Myocardial infarction age 53 following SD. Surgical History H/O colonoscopy S/P cataract extraction Presence of coronary angioplasty implant and graft (~11/29/21) Social History household members: none Smoking Status: Former smoker how long ago did patient quit smoking: Smoked from age 18, 1 ppd x 4 years and then quit. alcohol intake: current alcohol intake frequency: a few times a week Alcohol type: beer substance use type: does not use ROS ROS ED Constitutional Constitutional ED: Denies chills, fever(s), subjective or sweats ENT ENT ED: Reports other Details: Swelling under his chin and tongue trouble swallowing and speaking ; Denies ear pain, rhinorrhea or sore throat Cardiovascular Cardiovascular: Denies chest pain or palpitations Respiratory/Chest Respiratory/Chest: Denies cough or dyspnea Gastrointestinal Gastrointestinal: Denies abdominal pain, nausea or vomiting Musculoskeletal Musculoskeletal: Denies arthralgias, myalgias or neck pain Integumentary Denies rash Hematologic/Lymphatic Hematologic/Lymphatic: Denies easy bleeding or easy bruising EXAM Physical Exam Const Vital Signs: 12/27/24 13:13 12/27/24 13:40 12/27/24 13:42 Temperature 98 F Temperature Source Oral Pulse Rate 85 Respiratory Rate 16 14 Respiratory Effort Short of Breath Respiratory Depth Normal Respiratory Pattern Normal Normal Blood Pressure 165/97 H Blood Pressure Mean 119 Pulse Ox 99 Oxygen Delivery Method Room Air Fraction of Inspired Oxygen (FIO2) 35 12/27/24 14:05 12/27/24 14:05 12/27/24 14:11 Temperature Temperature Source Pulse Rate 83 84 82 Respiratory Rate 19 H 14 16 Respiratory Effort Respiratory Depth Respiratory Pattern Blood Pressure 166/96 H 86/62 L 116/84 H Blood Pressure Mean 119 70 94 Pulse Ox 99 97 97 Oxygen Delivery Method Mechanical Ventilator Mechanical Ventilator Mechanical Ventilator Fraction of Inspired Oxygen (FIO2) Positive well nourished and well developed Constitutional Narrative: Patient difficulty swallowing. There is no drooling presently. He has garbled speech. He has significant angioedema. He has a Mallampati class IV General Appearance ED: well developed; Negative for pallor HEENT HEENT Narrative: Angioedema normocephalic and atraumatic; Negative for cyanosis of lips/distal nose or tenderness Eyes PERRL and EOMs intact bilaterally Neck full ROM, no lymphadenopathy, supple and no JVD Neck Narrative: Fullness in the submental region. Trachea is midline. Question of expiratory stridor. Cardio regular rate, regular rhythm, S1 normal heart sound, S2 normal heart sound and no murmurs GI non-tender, non-distended and no masses Extremity Extremity Narrative: There is no clubbing or cyanosis. Neuro oriented x3 and CN's II-XII intact bilaterally Sensorium / Orientation: alert Psych mental status grossly normal Skin General Skin Exam: Negative for jaundice or pallor Lesions: no lesions Rashes: no rashes MDM MDM MDM Narrative Medical decision making narrative: Patient with angioedema. Plan is intubation with glide scope. Will initially pretreat with oxygen. He will receive etomidate if I am able to visualize the cords or pass the scope past the tongue and not able to intubate because of him resisting will chemically paralyzed if cords are visualized otherwise we will place LMA and call airway team Since patient was initially evaluated and moved to room 1 he was reexamined his tongue is larger insize. Concerned that his angioedema is worsening and will compromise his airway. He was prepped fororotracheal ovation. He was explained risk benefits and potential need for a cricothyroidotomy. Under the conditions written consent was not obtained since this is a emergency and implied consent is applicable. Patient was preoxygenated. Patient received 20 mg etomidate. Vocal cords were seen attempt to placeendotracheal tube was unsuccessful because patient was resisting. He received 1 mg/kg of succinylcholine. He was successfully intubated with a 7.0 endotracheal tube. There is swelling of the false cords. Patient was started on propofol drip since he has no allergy to soy products or egg products. Hospitalist was paged for admission for angioedema History & Record Review Additional record(s) reviewed:: Prior ED visit and Prior labs Lab Data Attestation: I reviewed the patient's lab results. Lab results narrative: CBC is remarked for an MCV of 103.5. Labs: Laboratory Results - last 24 hr 12/27/24 13:31 WBC 7.5 RBC 3.95 L Hgb 14.1 Hct 40.9 MCV 103.5 H MCH 35.7 H MCHC 34.5 RDW Std Deviation 51.5 H RDW Coeff of Dorie 13.3 Plt Count 200 MPV 9.7 Immature Gran % (Auto) 0.300 Neut % (Auto) 67.1 Lymph % (Auto) 9.8 L [place] % (Auto) 11.2 H Eos % (Auto) 10.8 H Baso % (Auto) 0.8 Absolute Neuts (auto) 5.0 Absolute Lymphs (auto) 0.73 L Nucleated RBC % 0 Sodium 139 Potassium 4.7 Chloride 105 Carbon Dioxide 23.1 Anion Gap 11 BUN 10 Creatinine 0.72 Estim Creat Clear Calc 93.74 Est GFR (MDRD) Non-Af 96 BUN/Creatinine Ratio 14.1 Glucose 95 Calcium 9.4 Total Bilirubin 0.80 AST 50 H ALT 34 Alkaline Phosphatase 151 H Total Protein 7.4 Albumin 4.0 Globulin 3.5 Albumin/Globulin Ratio 1.1 Radiography Chest X-Ray - ED: 1 View and Read by ED Physician (KUB was not obtained because chest x-ray shows endotracheal tube to be in proper position and NG in proper position. Patient has discoid atelectasison the right may be an air bronchogram as well. Cardiac silhouette size is unremarkable. There is no abnormality osseous structures. There is no ev) EKG Initial EKG: Attestation: I personally reviewed and interpreted this EKG as follows: Interpretation: Sinus Rhythm (Rate is 82 with a first-degree AV block. [place] to the left. [place] interval is 270 ms. QRS duration is 156 ms and morphologyconsistent with left bundle branch block. QT duration 442 ms.) Management Discussion w/another healthcare provider: Hospitalist (Spoke with Dr. Florentino. She was informed I did not start a 22 iban Solu-Medrol however will order since reviewing to prior visits he got better with treatment. She was informed he hadnot been on an JOSE inhibitor in some time. When he was seen this past July he was not on an ARB but had been on) Treatment and Re-Evaluation Narrative: Did look up adverse reactions effects from amlodipine. Allergic reaction is listed however there isno mention specifically of angioedema. There is no mention of angioedema postmarketing reports through [employer]. Will review othersources. Of note patient was on amlodipine when seen for angioedema Se ptember 2023 and July of this year. Procedures Intubations Intubation Method: orotracheal Intubation Verification: Positive color change and Bilateral breath sounds confirmed Intubation Complications: no complications (Documented under the MDM portion of the medical record) Critical Care Time Critical Care Time: Yes Critical care time (excluding procedures): 30-74 minutes (31), Including time spent: (History, physical, documentation, review of prior records and laboratoryresults.), Discussing w/Patient &/or Family/Project Developer (Patient was informed that he needs to be intubated reason why he needs to be intubated and if unsuccessful he may require a cricothyroidotomy.), Discussing w/Consultants (Hospitalist Dr. Flakita Florentino was paged.), Arranging Admission or Transfer and Performing Direct Patient Care atBedside Discharge Plan Dx/Rx/DC Orders Clinical Impression: Angioedema, Essential hypertension, Hyperlipidemia, Cirrhosis, alcoholic, Expiratory stridor, Dysphonia, Dysphagia, History of hypertension, History of coronary artery disease, Hypotension due to drugs, Eosinophilia, Lymphopenia Disposition Disposition: Acute Care Hospital [facility] What to do if you have Problems For any increased pain, shortness of breath, bleeding, nausea or vomiting, chestpain, or any unexpected problems, contact your Primary Care Provider. Call [facility] ([phone]) or report tothe closest Emergency Room. Call 911 if necessary. 12/27/24 1420 Cosigner Signature (if applicable): CC: Dr. Valeriano Beasley MD ~ Signed [facility]06-06-2025 Discharge summary Author Marino Holguin [facility] Note Date/Time December 27, 2024 2:20p m [facility] Medical Records Department [address] [place] [address] Emergency Department Summary 12/27/24 MR#: [id number] Acct: [id number] Name: NAZARIO HUTTON Rep #:[id number] : 1950 74 From: Marino Holguin MD PCP: Dr. Valeriano Beasley MD Status:REG ER Location: ED HPI History of Present Illness Chief Complaint: Allergic Reaction Detail of Chief Complaint: Angioedema Informant: patient Onset/Context/Timing Onset: Hours ( onset 0900) Context: Sudden Onset Timing: Continuous Quality: Slurred words, difficulty swallowing Mechanism/Context: Yes other Current Severity: Severe Maximum Severity: Severe Worsened by: Unknown Relieved by: nothing Associated Symptoms Associated Symptoms: other (Angioedema) Narrative Narrative: Patient is a 74-year-old gentleman. He presented in March and July 20232024 respectively with angioedema. He was not on an JOSE inhibitor or ARB at that time. He has no known history of familial angioedema. He denies rash. Hedenies itching. He denies cardiovascular symptoms or orthostatic symptoms. Prior similar symptoms: Yes Recent Illness/Hospitalization: No PFSH PFS Medical History High serum parathyroid hormone (PTH) Heart murmur Elevated alkaline phosphatase level Elevated PSA Diverticulosis AVM (arteriovenous malformation) of colon Vitamin D deficiency Gout Alcohol abuse Essential hypertension Chest pain Anxiety Depression Myocardial infarct Chest pain Acute blood loss anemia Bloody diarrhea Coronary artery disease Atherosclerotic heart disease of [place] coronary artery without angina pectoris ST elevation SD (STEMI) (~11/29/21) Hyperlipidemia Hypertension Home Medications ?Medication ?Instructions ?Recorded ?Last Taken ?Type allopurinol 100 mg tablet 100 mg PO DAILY GOUT 2 09/02/22 History atorvastatin 80 mg tablet 80 mg PO DAILY CHOLESTEOL 09/01/22 History ezetimibe 10 mg tablet 10 mg PO DAILY CHOLESTEROL 0 09/02/22 09/01/22 History nitroglycerin 0.4 mg sublingual 0.4 mg sublingual UD P RN Chest Pain 09/02/22 Unknown History tablet ascorbic acid (vitamin C) 500 mg 1,000 mg (2 x 500 mg) PO BIDCM 30 09/09/22 Unknown Rx tablet days #120 tabs cholecalciferol (vitamin D3) 125 125 mcg PO DAILY 04/16 Unknown History mcg (5,000 unit) capsule omega 3-dha 100 mg-epa 400 mg-fish cap PO 09/01/23 Unk nown History oil 1,000 mg capsule vitamin B complex (B 1 tab PO DAILY 09/01/23 Unkn own History Complex-Vitamin B12 tablet) isosorbide mononitrate 30 mg 30 mg PO QAM 04/15/24 Unk nown History tablet,extended release 24 hr amlodipine 5 mg tablet 5 mg PO QDAY 09/19/24 Unknow n History carvedilol 12.5 mg tablet 12.5 mg PO BID 09/19/24 Unkn own History fexofenadine 180 mg tablet 180 mg PO QDAY 09/19/24 Unk nown History fluoxetine 40 mg capsule 40 mg PO QDAY 09/19/24 Unkno wn History gabapentin 300 mg capsule 300 mg PO BID 09/19/24 Unkno wn History doxepin 25 mg capsule 25 mg PO QHS 11/05/24 Unknow n History Allergy/AdvReac Type Severity Reaction Status Date / Time losartan Allergy Severe Angioedema Verified 12/27/24 13:13 hydrochlorothiazide Allergy Hives Verified 12/27/24 13:13 Family History Mother COPD (chronic obstructive pulmonary disease) Lung cancer Father Heart disease Hypertension Myocardial infarction age 53 following SD. Surgical History H/O colonoscopy S/P cataract extraction Presence of coronary angioplasty implant and graft (~11/29/21) Social History household members: none Smoking Status: Former smoker how long ago did patient quit smoking: Smoked from age 18, 1 ppd x 4 years and then quit. alcohol intake: current alcohol intake frequency: a few times a week Alcohol type: beer substance use type: does not use ROS ROS ED Constitutional Constitutional ED: Denies chills, fever(s), subjective or sweats ENT ENT ED: Reports other Details: Swelling under his chin and tongue trouble swallowing and speaking ; Denies ear pain, rhinorrhea or sore throat Cardiovascular Cardiovascular: Denies chest pain or palpitations Respiratory/Chest Respiratory/Chest: Denies cough or dyspnea Gastrointestinal Gastrointestinal: Denies abdominal pain, nausea or vomiting Musculoskeletal Musculoskeletal: Denies arthralgias, myalgias or neck pain Integumentary Denies rash Hematologic/Lymphatic Hematologic/Lymphatic: Denies easy bleeding or easy bruising EXAM Physical Exam Const Vital Signs: 12/27/24 13:13 12/27/24 13:40 12/27/24 13:42 Temperature 98 F Temperature Source Oral Pulse Rate 85 Respiratory Rate 16 14 Respiratory Effort Short of Breath Respiratory Depth Normal Respiratory Pattern Normal Normal Blood Pressure 165/97 H Blood Pressure Mean 119 Pulse Ox 99 Oxygen Delivery Method Room Air Fraction of Inspired Oxygen (FIO2) 35 12/27/24 14:05 12/27/24 14:05 12/27/24 14:11 Temperature Temperature Source Pulse Rate 83 84 82 Respiratory Rate 19 H 14 16 Respiratory Effort Respiratory Depth Respiratory Pattern Blood Pressure 166/96 H 86/62 L 116/84 H Blood Pressure Mean 119 70 94 Pulse Ox 99 97 97 Oxygen Delivery Method Mechanical Ventilator Mechanical Ventilator Mechanical Ventilator Fraction of Inspired Oxygen (FIO2) Positive well nourished and well developed Constitutional Narrative: Patient difficulty swallowing. There is no drooling presently. He has garbled speech. He has significant angioedema. He has a Mallampati class IV General Appearance ED: well developed; Negative for pallor HEENT HEENT Narrative: Angioedema normocephalic and atraumatic; Negative for cyanosis of lips/distal nose or tenderness Eyes PERRL and EOMs intact bilaterally Neck full ROM, no lymphadenopathy, supple and no JVD Neck Narrative: Fullness in the submental region. Trachea is midline. Question of expiratory stridor. Cardio regular rate, regular rhythm, S1 normal heart sound, S2 normal heart sound and no murmurs GI non-tender, non-distended and no masses Extremity Extremity Narrative: There is no clubbing or cyanosis. Neuro oriented x3 and CN's II-XII intact bilaterally Sensorium / Orientation: alert Psych mental status grossly normal Skin General Skin Exam: Negative for jaundice or pallor Lesions: no lesions Rashes: no rashes MDM MDM MDM Narrative Medical decision making narrative: Patient with angioedema. Plan is intubation with glide scope. Will initially pretreat with oxygen. He will receive etomidate if I am able to visualize the cords or pass the scope past the tongue and not able to intubate because of him resisting will chemically paralyzed if cords are visualized otherwise we will place LMA and call airway team Since patient was initially evaluated and moved to room 1 he was reexamined his tongue is larger in size. Concerned that his angioedema is worsening and will compromise his airway. He was prepped for orotracheal ovation. He was explained risk benefits and potential need for a cricothyroidotomy. Under the conditions written consent was not obtained since this is a emergency and implied consent is applicable. Patient was preoxygenated. Patient received 20 mg etomidate. Vocal cords were seen attempt to place endotracheal tube was unsuccessful because patient was resisting. He received 1 mg/kg of succinylcholine. He was successfully intubated with a 7.0 endotracheal tube. There is swelling of the false cords. Patient was started on propofol drip since he has no allergy to soy products or egg products. Hospitalist was paged for admission for angioedema History & Record Review Additional record(s) reviewed:: Prior ED visit and Prior labs Lab Data Attestation: I reviewed the patient's lab results. Lab results narrative: CBC is remarked for an MCV of 103.5. Labs: Laboratory Results - last 24 hr 12/27/24 13:31 WBC 7.5 RBC 3.95 L Hgb 14.1 Hct 40.9 MCV 103.5 H MCH 35.7 H MCHC 34.5 RDW Std Deviation 51.5 H RDW Coeff of Dorie 13.3 Plt Count 200 MPV 9.7 Immature Gran % (Auto) 0.300 Neut % (Auto) 67.1 Lymph % (Auto) 9.8 L [place] % (Auto) 11.2 H Eos % (Auto) 10.8 H Baso % (Auto) 0.8 Absolute Neuts (auto) 5.0 Absolute Lymphs (auto) 0.73 L Nucleated RBC % 0 Sodium 139 Potassium 4.7 Chloride 105 Carbon Dioxide 23.1 Anion Gap 11 BUN 10 Creatinine 0.72 Estim Creat Clear Calc 93.74 Est GFR (MDRD) Non-Af 96 BUN/Creatinine Ratio 14.1 Glucose 95 Calcium 9.4 Total Bilirubin 0.80 AST 50 H ALT 34 Alkaline Phosphatase 151 H Total Protein 7.4 Albumin 4.0 Globulin 3.5 Albumin/Globulin Ratio 1.1 Radiography Chest X-Ray - ED: 1 View and Read by ED Physician (KUB was not obtained because chest x-ray shows endotracheal tube to be in proper position and NG in proper position. Patient has discoid atelectasis on the right may be an air bronchogram as well. Cardiac silhouette size is unremarkable. There is no abnormality osseous structures. There is no ev) EKG Initial EKG: Attestation: I personally reviewed and interpreted this EKG as follows: Interpretation: Sinus Rhythm (Rate is 82 with a first-degree AV block. [place] to the left. [place] interval is 270 ms. QRS duration is 156 ms and morphologyconsistent with left bundle branch block. QT duration 442 ms.) Management Discussion w/another healthcare provider: Hospitalist (Spoke with Dr. Florentino. She was informed I did not start a 22 iban Solu-Medrol however will order since reviewing to prior visits he got better with treatment. She was informed he hadnot been on an JOSE inhibitor in some time. When he was seen this past July he was not on an ARB but had been on) Treatment and Re-Evaluation Narrative: Did look up adverse reactions effects from amlodipine. Allergic reaction is listed however there is no mention specifically of angioedema. There is no mention of angioedema postmarketing reports through [employer]. Will review othersources. Of note patient was on amlodipine when seen for angioedema March 2024 and July of this year. Procedures Intubations Intubation Method: orotracheal Intubation Verification: Positive color change and Bilateral breath sounds confirmed Intubation Complications: no complications (Documented under the MDM portion of the medical record) Critical Care Time Critical Care Time: Yes Critical care time (excluding procedures): 30-74 minutes (31), Including time spent: (History, physical, documentation, review of prior records and laboratoryresults.), Discussing w/Patient &/or Family/Project Developer (Patient was informed that he needs to be intubated reason why he needs to be intubated and if unsuccessful he may require a cricothyroidotomy.), Discussing w/Consultants (Hospitalist Dr. Flakita Florentino was paged.), Arranging Admission or Transfer and Performing Direct Patient Care at Bedside Discharge Plan Dx/Rx/DC Orders Clinical Impression: Angioedema, Essential hypertension, Hyperlipidemia, Cirrhosis, alcoholic, Expiratory stridor, Dysphonia, Dysphagia, History of hypertension, History of coronary artery disease, Hypotension due to drugs, Eosinophilia, Lymphopenia Disposition Disposition: Acute Care [facility] What to do if you have Problems For any increased pain, shortness of breath, bleeding, nausea or vomiting, chestpain, or any unexpected problems, contact your Primary Care Provider. Call [facility] ([phone]) or report to the closest Emergency Room. Call 911 if necessary. 12/27/24 1420 <Electronically signed by Marino Holguin MD> Cosigner Signature (if applicable): CC: Dr. Valeriano Beasley MD ~ Signed [facility] Work Phone: [phone] 509-736906-05-2025 NoteHNO ID: [id number] Author: LUPILLO MOURA LPN Service: ? Author Type: LICENSED NURSE Type: Progress Notes Filed: 12/26/2024 07:56 Note Text: Scan on 12/26/2024 7:26 AM by ProviderBing PA-C: Consultation - Cardiology [facility]06-05-2025 History of Present illness Narrative* Lupillo Moura LPN - 12/26/2024 7:56 AM EDT Scan on 12/26/2024 7:26 AM by ProviderBing PA-C: Consultation - Cardiology documented in this encounterM[facility] NoteHNO ID: [id number] Author: PATRIA KHANNA JR, MD Service: ? Author Type: Physician Type: Progress Notes Filed: 12/23/2024 17:47 Note Text: ESTABLISHED PATIENT VISIT CHIEF COMPLAINT: Follow Up HISTORY OF PRESENT ILLNESS: Nazario Hutton is a 74 year old male, with a PMH significant for and per last office visit note of 08/30/24: 1. Neuropathy, idiopathic - ICD9: 355.9, ICD10: G60.9 (primary diagnosis) 2. Abnormal SPEP - ICD9: 790.99, ICD10: R77.8 3. Positive GALLO (antinuclear antibody) - ICD9: 795.79, ICD10: R76.8 4. Abnormality of gait - ICD9: 781.2, ICD10: R26.9 5. Numbness - ICD9: 782.0, ICD10: R20.0 Patient with overall stable neuro exam still showing sensory deficits in stocking-glove pattern including features of small fiber > large fiber. Etiology uncertain with extensive workup. That said SPEP abnml as above as was + GALLO. Will repeat SPEP with kappa chains at this time. Will also refer to Rheumatology regarding opinion of + GALLO and other + labs on reflex. In meantime, d/w pt possible PT, and states that he would do so if he was falling but at present he feels he does not need it. As for numbness, will place on trial of gabapentin 300mg BID. SE and ADRs d/w pt. Note renal function normal. Encouraged exercise. Follow up 3 months or sooner prn. Note MRI brain and CTA head and neck reviewed with pt and as above, without evidence of cause of symptoms. Rheum workup unremarkable and per patient, Dr. Roy will continue to monitor. No osteolytic lesions. To follow up in 6 weeks. As for neuropathy, symptoms unchanged. States discomfort more frequent and prolonged. Not daily. States before was couple times per month and now few episodes per week. No coloration changes. No temp changes. He is not sure if gabapentin helped. States he did run out of the gabapentin and did not get it refilled immediately. Continues to drink ETOH - now stating couple beers per day. States was on B12 supplement but now off it for a couple month. Latest Reference Range AND Units 04/20/23 13:23 10/17/23 15:43 04/04/24 12:21 09/25/24 14:51 10/30/24 11:03 Vitamin B12 232 - 1,245 pg/mL 244 896 905 1,008 950 Feels tylenol can help discomfort in feet. Symptoms usually worst in the AM. 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 REVIEW OF SYSTEMS GENERAL:No weight loss, malaise or fevers. HEENT:Negative for frequent or significant headaches, No changes in hearing or vision, no nose bleeds or other nasal problems NECK:Negative for lumps, goiter, pain and significant neck swelling RESPIRATORY: Negative for cough, wheezing or shortness of breath. CARDIOVASCULAR: Negative for chest pain, leg swelling or palpitations. GASTROINTESTINAL: Negative for abdominal discomfort, blood in stools or black stools or change in bowel habits GENITOURINARY: No history of dysuria, frequency or incontinence MUSCULOSKELETAL: Negative for joint pain or swelling, back pain or muscle pain. NEUROLOGIC: See HPI. SKIN:Negative for lesions, rash, and itching. HEMATOLOGIC/LYMPHATIC/IMMUNOLOGIC:Negative for prolonged bleeding, bruising easily or swollen nodes. ENDOCRINE: Negative for cold or heat intolerance, polyuria, polydipsia and goiter. The remainder of the ROS was reviewed and is negative. LAB/IMAGING: Those performed since patient's last visit have been reviewed. WBC (k/uL) Date Value 10/30/2024 6.58 RBC (m/uL) Date Value 10/30/2024 4.05 (L) Hemoglobin (g/dL) Date Value 10/30/2024 14.0 Hematocrit (%) Date Value 10/30/2024 41.9 MCV (fL) Date Value 10/30/2024 103.5 (H) MCH (pg) Date Value 10/30/2024 34.6 (H) MCHC (g/dL) Date Value 10/30/2024 33.4 RDW-CV (%) Date Value 10/30/2024 13.5 Platelet Count (k/uL) Date Value 10/30/2024 208 MPV (fL) Date Value 10/30/2024 10.4 Glucose (mg/dL) Date Value 10/30/2024 148 (H) BUN (mg/dL) Date Value 10/30/2024 12 Creatinine (mg/dL) Date Value 10/30/2024 0.67 (L) Sodium (mmol/L) Date Value 10/30/2024 139 Potassium (mmol/L) Date Value 10/30/2024 4.7 Chloride (mmol/L) Date Value 10/30/2024 104 CO2 (mmol/L) Date Value 10/30/2024 22 Protein, Total (g/dL) Date Value 10/30/2024 7.5 Albumin (g/dL) Date Value 10/30/2024 4.3 Calcium, Total (mg/dL) Date Value 10/30/2024 9.9 Alkaline Phosphatase (U/L) Date Value 10/30/2024 145 (H) Bilirubin, Total (mg/dL) Date Value 10/30/2024 0.8 AST (U/L) Date Value 10/30/2024 51 (H) ALT (U/L) Date Value 10/30/2024 38 GALLO (no units) Date Value 01/02/2024 Positive (A) SSA Antibody IgG (AI) Date Value 01/02/2024 <0.2 SSB Antibody (AI) Date Value 01/02/2024 <0.2 MEDICATIONS: gabapentin (NEURONTIN) 300 mg capsule Take 1 capsule by mouth two times a day for 90 days. fexofenadine (MARII ALLERGY) 180 mg tablet Take 1 tablet by mouth once daily. carvedilol (COREG) 12.5 mg tablet Take 1 tablet by mouth tw (more content not included)...[facility]06-02-2025 History of Present illness Narrative* Patria Khanna Jr., MD - 12/23/2024 1:58 PM EDT ESTABLISHED PATIENT VISIT CHIEF COMPLAINT: Follow Up HISTORY OF PRESENT ILLNESS: Nazario Hutton is a 74 year old male, with a PMH significant for andper last office visit note of 08/30/24: 1. Neuropathy, idiopathic - ICD9: 355.9, ICD10: G60.9 (primary diagnosis) 2. Abnormal SPEP - ICD9: 790.99, ICD10: R77.8 3. Positive GALLO (antinuclear antibody) - ICD9: 795.79, ICD10: R76.8 4. Abnormality of gait - ICD9: 781.2, ICD10: R26.9 5. Numbness - ICD9: 782.0, ICD10: R20.0 Patient with overall stable neuro exam still showing sensory deficits in stocking-glove pattern including features of small fiber > large fiber. Etiology uncertain with extensive workup. That saidSPEP abnml as above as was + GALLO. Will repeat SPEP with kappa chains at this time. Will also refer to Rheumatology regarding opinion of + GALLO and other + labs on reflex. In meantime, d/w pt possible PT, and states that he would do so if he was falling but at present he feels he does not need it. Asfor numbness, will place on trial of gabapentin 300mg BID. SE and ADRs d/w pt. Note renal function normal. Encouraged exercise. Follow up 3 months or sooner prn. Note MRI brain and CTA head and neck reviewed with pt and as above, without evidence of cause of symptoms. Rheum workup unremarkable and per patient, Dr. Roy will continue to monitor. No osteolytic lesions. To follow up in 6 weeks. As for neuropathy, symptoms unchanged. States discomfort more frequent and prolonged. Not daily. States before was couple times per month and now few episodes per week. No coloration changes. No tempchanges. He is not sure if gabapentin helped. States he did run out of the gabapentin and did not get it refilled immediately. Continues to drink ETOH - now stating couple beers per day. States was on B12 supplement but now off it for a couple month. Latest Reference Range & Units 04/20/23 13:23 10/17/23 15:43 04/04/24 12:21 09/25/24 14:51 10/30/24 11:03 Vitamin B12 232 - 1,245 pg/mL 244 896 905 1,008 950 Feels tylenol can help discomfort in feet. Symptoms usually worst in the AM. 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 REVIEW OF SYSTEMS GENERAL:No weight loss, malaise or fevers. HEENT:Negative for frequent or significant headaches, No changes in hearing or vision, no nose bleeds or other nasal problems NECK:Negative for lumps, goiter, pain and significant neck swelling RESPIRATORY: Negative for cough, wheezing or shortness of breath. CARDIOVASCULAR: Negative for chest pain, leg swelling or palpitations. GASTROINTESTINAL: Negative for abdominal discomfort, blood in stools or black stools or change in bowel habits GENITOURINARY: No history of dysuria, frequency or incontinence MUSCULOSKELETAL: Negative for joint pain or swelling, back pain or muscle pain. NEUROLOGIC: See HPI. SKIN:Negative for lesions, rash, and itching. HEMATOLOGIC/LYMPHATIC/IMMUNOLOGIC:Negative for prolonged bleeding, bruising easily or swollen nodes. ENDOCRINE: Negative for cold or heat intolerance, polyuria, polydipsia and goiter. The remainder of the ROS was reviewed and is negative. LAB/IMAGING: Those performed since patient's last visit have been reviewed. WBC (k/uL) Date Value 10/30/2024 6.58 RBC (m/uL) Date Value 10/30/2024 4.05 (L) Hemoglobin (g/dL) Date Value 10/30/2024 14.0 Hematocrit (%) Date Value 10/30/2024 41.9 MCV (fL) Date Value 10/30/2024 103.5 (H) MCH (pg) Date Value 10/30/2024 34.6 (H) MCHC (g/dL) Date Value 10/30/2024 33.4 RDW-CV (%) Date Value 10/30/2024 13.5 Platelet Count (k/uL) Date Value 10/30/2024 208 MPV (fL) Date Value 10/30/2024 10.4 Glucose (mg/dL) Date Value 10/30/2024 148 (H) BUN (mg/dL) Date Value 10/30/2024 12 Creatinine (mg/dL) Date Value 10/30/2024 0.67 (L) Sodium (mmol/L) Date Value 10/30/2024 139 Potassium (mmol/L) Date Value 10/30/2024 4.7 Chloride (mmol/L) Date Value 10/30/2024 104 CO2 (mmol/L) Date Value 10/30/2024 22 Protein, Total (g/dL) Date Value 10/30/2024 7.5 Albumin (g/dL) Date Value 10/30/2024 4.3 Calcium, Total (mg/dL) Date Value 10/30/2024 9.9 Alkaline Phosphatase (U/L) Date Value 10/30/2024 145 (H) Bilirubin, Total (mg/dL) Date Value 10/30/2024 0.8 AST (U/L) Date Value 10/30/2024 51 (H) ALT (U/L) Date Value 10/30/2024 38 GALLO (no units) Date Value 01/02/2024 Positive (A) SSA Antibody IgG (AI) Date Value 01/02/2024 <0.2 SSB Antibody (AI) Date Value 01/02/2024 <0.2 MEDICATIONS: gabapentin (NEURONTIN) 300 mg capsule Take 1 capsule by mouth two times a day for 90 days. fexofenadine (MARII ALLERGY) 180 mg tablet Take 1 tablet by mouth once daily. carvedilol (COREG) 12.5 mg tablet Take 1 tablet by mouth two times a day with meals. carvedilol (COREG) 12.5 mg tablet Take 1 tablet by mouth two times a day with meals. FLUoxetine (PROZAC) 40 mg capsule Take 1 capsule by mouth once daily. allopurinol (ZYLOPRIM) 100 mg tablet TAKE 1 TABLET BY MOUTH ONCE DAILY. FOR GOUT. amLODIPine (NORVASC) 5 mg tablet Take 1 tablet by mouth once daily. ezetimibe (ZETIA) 10 mg tablet Take 1 tablet by mouth once daily. Blood Pressure Monitor 1 Each once daily. isosorbide mononitrate ER (IMDUR) 30 mg 24 hr tablet Take 1 tablet by mouth once daily. Per Ameena aspirin, enteric coated (ASPIRIN, ENTERIC COATED) 81 mg EC tablet Take 1 tablet by mouth once daily. multivitamin tablet Take 1 tablet by mouth once daily. nitroglycerin sublingual (NITROQUICK) 0.4 mg SL tablet Dissolve 1 tablet under the tongue every 5 minutes as needed for chest pain. docosahexaenoic acid/epa (FISH OIL ORAL) Take 1,000 mg by mouth once daily. cholecalciferol (VITAMIN D3) 5,000 unit tab Take 5,000 Units by mouth once daily. ascorbic acid, vitamin C, (VITAMIN C) 500 mg tablet Take 500 mg by mouth once daily. doxepin capsule 25 mg Take 1 capsule by mouth daily at bedtime. VITAMIN B COMPLEX (B COMPLEX 1 ORAL) Take 1 tablet by mouth once daily. diphenhydrAMINE (BENADRYL) 25 mg capsule Take 25 mg by mouth every 6 hours as needed. HISTORIES PAST MEDICAL HISTORY Diagnosis Date Advance directive discussed with patient 04/18/2022 Discussed 03/2022 Alcohol abuse 09/14/2022 6 beers a day since passed in early 2021 Alcoholic cirrhosis (HCC) 06/05/[address] Francis Ash 12/08/2014 AVM (arteriovenous malformation) of colon 09/14/[address] Chacon BENIGN HYPERTENSION 03/04/2008 Coronary artery disease due to lipid rich plaque 12/06/[address] Edwards , cardio [place] Diverticulosis 09/05/2022 Elevated alkaline phosphatase level 09/03/2017 Elevated PSA 03/17/2021 Heart attack (HCC) 2021 Heart murmur, systolic 08/01/2018 High serum parathyroid hormone (PTH) 08/01/[address] elevation myocardial infarction (STEMI) 12/06/2021 Hyperuricemia 10/30/[address] 04/18/2022 DPA: Jae (son) Low serum vitamin B12 05/18/2023 Low vitamin D level 03/15/2021 Lumbosacral radiculopathy at L5 07/10/2023 Medicare annual wellness visit, subsequent 03/15/2021 Medicare Part B: Not able to find. 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 rate 18, weight 94.4 kg (208 lb 3.2 oz), SpO2 94%. GENERAL EXAM: General appearance: NAD, pleasant. HEENT: NC/AT, nasal congestion absent, no oral lesions, membranes moist. NECK: No masses, supple. Lungs: CTA bilaterally. CV: RRR nl S1, S2. Extr: No cyanosis, clubbing or edema. Skin: Cool to touch. NEUROLOGICAL EXAM: General: Awake, alert, oriented x3 (person,place,time), fluent, no dysarthria; comprehension, naming, repetition intact. CN: PERRL, EOMI and without nystagmus, VFF to confrontation, facial sensation and strength are normal and symmetric, hearing is intact to finger rub bilaterally, palate and tongue movements are intact and symmetric. SCM and trapezius strength normal. Motor: Normal tone, bulk and strength (5/5) bilaterally (throughout extremities x4). Coordination: FNF, WENCESLAO, HTS intact. No tremors. Sensation: Light touch and vibration intact throughout. Pin and temp diminished distal to knees bilateral. No evidence of neglect. Gait: Stable with normal stride and arm swing. Assessment and Plan: ASSESSMENT/PLAN: 1. Peripheral polyneuropathy - ICD9: 356.9, ICD10: G62.9 (primary diagnosis) 2. Low vitamin B12 level - ICD9: 790.6, ICD10: R79.89 3. Drinks beer - ICD9: V49.89, ICD10: Z78.9 Patient with persistent symptoms of peripheral polyneuropathy - progressing by subjective history. Workup for +GALLO and abnormal SPEP/UPEP completed with Rheum and Heme respectively. Will be followingwith Heme although no evidence of multiple myeloma on workup thus far. Further Rheum workup appearsunremarkable with no follow up planned. Exam suggestive of small fiber neuropathy given deficits. Patient also reporting increased amount of beer intake - at least 2 beers nightly. Explained that ETOH too may be contributing to neuropathy. Encouraged cessation (at least reduction). For discomfort will try to increase gabapentin to 600mg BID. SE and ADRs d/w pt. Also history of low B12 for which he was on supplement, but recently discontinued supplement. Thus, will check B12 to make sure not lowagain which too could contribute to neuropathy. Advised he restart supplement. Pt is understanding of and agrees with plan as above. Patria Khanna MD I spent a total of 30+ minutes on the date of the service which included preparing to see the patient, [id number] patient care, completing clinical documentation, obtaining and/or reviewing separately obtained history, performing a medically appropriate examination, counseling and educating the pa tient/family/caregiver, ordering medications, tests, or procedures, and communicating results to the patient/family/caregiver. PDMP website checked and validated. All prescriptions have been APPROPRIATELY filled. No suspiciousactivity was identified. 12/23/2024 by Patria Khanna MD documented in this encounterM[facility]04[facility] Telephone encounter Note * Telephone Encounter - Flakita Pastor MA - 11/15/2024 2:33 PM EDT Additional message left for pt to call back. Flakita Pastor MA [facility]04-25-[facility] Miscellaneous Notes* Telephone Encounter - Flakita Pastor MA - 11/15/2024 2:33 PM EDT Additional message left for pt to call back. Flakita Pastor MA * Telephone Encounter - Zakiya Spangler MA - 11/08/2024 9:10 AM EDT Called and left message on patients voicemail to return call to the office and ask to speak with a triage nurse. Zakiya Spangler MA * Telephone Encounter - Rupal Coe MA - 11/07/2024 10:19 AM EDT Left message for patient to return call to office Rupal Coe MA * Telephone Encounter - Ni Sauceda APRN.CNP - 11/07/2024 8:48 AM EDT Please let patient know his AAA screening is negative for aneurysm. documented in this encounterMccull[facility]04-22-2025 NoteHNO ID: [id number] Author: GANESH WHITE MA Service: ? Author Type: Gas Transfer Operator Type: Progress Notes Filed: 11/12/2024 16:25 Note Text: Scan on 11/05/2024 3:43 PM by Provider, External, PA-C: Chemistry Scan on 11/05/2024 5:16 PM by Provider, External, PA-C: Chemistry Ganesh White [facility]04-22-2025 History of Present illness Narrative* Ganesh White MA - 11/12/2024 4:24 PM EDT Scan on 11/05/2024 3:43 PM by Bing Salmeron PA-C: Chemistry Scan on 11/05/2024 5:16 PM by Bing Salmeron PA-C: Chemistry Ganesh White MA * Flakita Pastor MA - 11/05/2024 3:50 PM EDT Labs resulted at [facility]. View External Labs - Hematology [ID [id number]] documented in this encounterMccull[facility]04-22-2025 NoteHNO ID: [id number] Author: LUPILLO MOURA LPN Service: ? Author Type: LICENSED NURSE Type: Progress Notes Filed: 11/12/2024 07:16 Note Text: Scan on 11/11/2024 4:10 PM by Bing Salmeron PA-C: Consultation - [facility]04-22-2025 History of Present illness Narrative* Lupillo Moura LPN - 11/12/2024 7:16 AM EDT Scan on 11/11/2024 4:10 PM by Bing Salmeron PA-C: Consultation - documented in this encounterM[facility]04-18-2025 Telephone encounter Note * Telephone Encounter - Zakiya Spangler MA - 11/08/2024 9:10 AM EDT Called and left message on patients voicemail to return call to the office and ask to speak with a triage nurse. Zakiya Spangler MA [facility]04-17-[facility] Telephone encounter Note* Telephone Encounter - Rupal Coe MA - 11/07/2024 10:19 AM EDT Left message for patient to return call to office Rupal Coe MA [facility]04-17-[facility] Telephone encounter Note* Telephone Encounter - Ni Sauceda APRN.CNP - 11/07/2024 8:48 AM EDT Please let patient know his AAA screening is negative for aneurysm. [facility]04[facility] History of Present illness Narrative* Bhavani Liu RDMS - 11/06/2024 11:30 AM EDT Radiology Service Progress Note PATIENT NAME: Nazario Hutton DATE OF SERVICE: November 06, 2024 TIME: 4:44 PM PATIENT IDENTITY VERIFICATION COMPLETED USING TWO (2) IDENTIFIERS: Name and Date of confirmedby patient verbally. FALL SCREENING: Has the patient had 2 falls in the last year or 1 fall with injury or currently using an Ambulatory Assistive Device (Walker, Cane, Wheelchair, Crutches, etc.)? No PATIENT GENDER DATA: Assigned male at PATIENT RELEVANT IMPLANT DATA REVIEWED: Not Applicable PATIENT PRESENTS WITH AN IMPLANTABLE OR ATTACHED MEATMAN: No RADIOLOGY DEPARTMENT: Ultrasound PERIPHERAL IV DATA: Not applicable SIGNED BY: Bhavani Liu RDMS RVT November 06, 2024 4:44 PM documented in this encounterMccull[facility]04-16-2025 NoteHNO ID: [id number] Author: BHAVANI LIU RDMS Service: ? Author Type: Chief Of Safety And Protection Type: Progress Notes Filed: 11/06/2024 16:45 Note Text: Radiology Service Progress Note PATIENT NAME: Nazario Hutton DATE OF SERVICE: November 06, 2024 TIME: 4:44 PM PATIENT IDENTITY VERIFICATION COMPLETED USING TWO (2) IDENTIFIERS: Name and Date of confirmed by patient verbally. FALL SCREENING: Has the patient had 2 falls in the last year or 1 fall with injury or currently using an Ambulatory Assistive Device (Walker, Cane, Wheelchair, Crutches, etc.)? No PATIENT GENDER DATA: Assigned male at PATIENT RELEVANT IMPLANT DATA REVIEWED: Not Applicable PATIENT PRESENTS WITH AN IMPLANTABLE OR ATTACHED MEATMAN: No RADIOLOGY DEPARTMENT: Ultrasound PERIPHERAL IV DATA: Not applicable SIGNED BY: Bhavani Liu RDMS RVBrittany November 06, 2024 4:44 [place] [facility]25 NoteHNO ID: [id number] Author: FLAKITA PASTOR MA Service: ? Author Type: Gas Transfer Operator Type: Progress Notes Filed: 11/12/2024 16:25 Note Text: Labs resulted at [facility]. View External Labs - Hematology [ID [id number]][facility] 11-05-2024 Evaluation note* Diagnosis Onset Date Resolution Status Admit Date Atherosclerotic heart diseas e of [place] coronary artery without angina pectoris acute November 05, 2024 12:58pm Essential hypertension acute Ap 2024 12:58pm Hyperlipidemia acute October 12:58pm Acute respiratory failure resolved December 27, 2024 1:58pm Angioedema resolved December 27, 2024 1:58pm Eosinophilia resolved December 27 1:58pm Hypotension due to drugs resolved December 27, 2024 1:58pm Lymphopenia resolved December 27 1:58pm Monocytosis resolved December 27 1:58pm [facility] Work Phone: [phone] 445-985004-11-2025 Instructions* Patient Instructions* Ni Sauceda APRN.CNP - 11/01/2024 11:08 AM EDT Vaccinations needed-DTaP, Shingrix, Hep A, RSV, Hep B documented in this encounter[facility] NoteHNO ID: [id number] Author: NI SAUCEDA APRN.COMMERCIAL REVIEW APPRAISER Service: ? Author Type: Nurse Practitioner Type: Progress Notes Filed: 11/01/2024 11:30 Note Text: Chief Complaint Patient presents with: 6 Month Exam HPI Nazario Hutton is a 74 year old male who presents here today for Above Complaints.. Patient presents for routine follow up. Patient reports he is doing well and cardiology has him following up in 9 months. Past medical history, appointments, medications, allergies reviewed. Previous Medical History PAST MEDICAL HISTORY Diagnosis Date Advance directive discussed with patient 04/18/2022 Discussed 03/2022 Alcohol abuse 09/14/2022 6 beers a day since passed in early 2021 Alcoholic cirrhosis (HCC) 06/05/[address] Francis Ash 12/08/2014 AVM (arteriovenous malformation) of colon 09/14/[address] Chacon BENIGN HYPERTENSION 03/04/2008 Coronary artery disease due to lipid rich plaque 12/06/[address] Edwards [facility] [place] Diverticulosis 09/05/2022 Elevated alkaline phosphatase level 09/03/2017 Elevated PSA 03/17/2021 Heart attack (HCC) 2021 Heart murmur, systolic 08/01/2018 High serum parathyroid hormone (PTH) 08/01/[address] elevation myocardial infarction (STEMI) 12/06/2021 Hyperuricemia 10/30/[address] 04/18/2022 DPA: Jae (son) Low serum vitamin B12 05/18/2023 Low vitamin D level 03/15/2021 Lumbosacral radiculopathy at L5 07/10/2023 Medicare annual wellness visit, subsequent 03/15/2021 Medicare Part B: Not able to find. 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 fexofenadine (MARII ALLERGY) 180 mg tablet Take 1 tablet by mouth once daily. carvedilol (COREG) 12.5 mg tablet Take 1 tablet by mouth two times a day with meals. carvedilol (COREG) 12.5 mg tablet Take 1 tablet by mouth two times a day with meals. FLUoxetine (PROZAC) 40 mg capsule Take 1 capsule by mouth once daily. allopurinol (ZYLOPRIM) 100 mg tablet TAKE 1 TABLET BY MOUTH ONCE DAILY. FOR GOUT. amLODIPine (NORVASC) 5 mg tablet Take 1 tablet by mouth once daily. ezetimibe (ZETIA) 10 mg tablet Take 1 tablet by mouth once daily. Blood Pressure Monitor 1 Each once daily. isosorbide mononitrate ER (IMDUR) 30 mg 24 hr tablet Take 1 tablet by mouth once daily. Per [place] Card[facility] aspirin, enteric coated (ASPIRIN, ENTERIC COATED) 81 mg EC tablet Take 1 tablet by mouth once daily. multivitamin tablet Take 1 tablet by mouth once daily. nitroglycerin sublingual (NITROQUICK) 0.4 mg SL tablet Dissolve 1 tablet under the tongue every 5 minutes as needed for chest pain. docosahexaenoic acid/epa (FISH OIL ORAL) Take 1,000 mg by mouth once daily. cholecalciferol (VITAMIN D3) 5,000 unit tab Take 5,000 Units by mouth once daily. ascorbic acid, vitamin C, (VITAMIN C) 500 mg tablet Take 500 mg by mouth once daily. doxepin capsule 25 mg Take 1 capsule by mouth daily at bedtime. VITAMIN B COMPLEX (B COMPLEX 1 ORAL) Take 1 tablet by mouth once daily. diphenhydrAMINE (BENADRYL) 25 mg capsule Take 25 mg by mouth every 6 hours as needed. No current facility-administered medications on file prior to visit. Social History Social History Tobacco Use Smoking status: Former Types: Cigarettes Smokeless tobacco: Never Vaping Use Vaping status: Never Used Substance Use Topics Alcohol use: Yes Comment: 6 pack of beer a week on average Drug use: No Review of Symp (more content not included)...[facility] 11-01-2024 History of Present illness Narrative* Ni Sauceda APRN.[facility] - 11/01/2024 10:54 AM EDT Chief Complaint Patient presents with: 6 Month Exam HPI Nazario Htuton is a 74 year old male who presents here today for Above Complaints.. Patient presents for routine follow up. Patient reports he is doing well and cardiology has him following up in 9 months. Past medical history, appointments, medications, allergies reviewed. Previous Medical History PAST MEDICAL HISTORY Diagnosis Date Advance directive discussed with patient 04/18/2022 Discussed 03/2022 Alcohol abuse 09/14/2022 6 beers a day since passed in early 2021 Alcoholic cirrhosis (HCC) 06/05/[address] Francis Ash 12/08/2014 AVM (arteriovenous malformation) of colon 09/14/[address] Chacon BENIGN HYPERTENSION 03/04/2008 Coronary artery disease due to lipid rich plaque 12/06/[address] Edwards , cardio [place] Diverticulosis 09/05/2022 Elevated alkaline phosphatase level 09/03/2017 Elevated PSA 03/17/2021 Heart attack (HCC) 2021 Heart murmur, systolic 08/01/2018 High serum parathyroid hormone (PTH) 08/01/[address] elevation myocardial infarction (STEMI) 12/06/2021 Hyperuricemia 10/30/[address] 04/18/2022 DPA: Jae (son) Low serum vitamin B12 05/18/2023 Low vitamin D level 03/15/2021 Lumbosacral radiculopathy at L5 07/10/2023 Medicare annual wellness visit, subsequent 03/15/2021 Medicare Part B: Not able to find. 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 fexofenadine (MARII ALLERGY) 180 mg tablet Take 1 tablet by mouth once daily. carvedilol (COREG) 12.5 mg tablet Take 1 tablet by mouth two times a day with meals. carvedilol (COREG) 12.5 mg tablet Take 1 tablet by mouth two times a day with meals. FLUoxetine (PROZAC) 40 mg capsule Take 1 capsule by mouth once daily. allopurinol (ZYLOPRIM) 100 mg tablet TAKE 1 TABLET BY MOUTH ONCE DAILY. FOR GOUT. amLODIPine (NORVASC) 5 mg tablet Take 1 tablet by mouth once daily. ezetimibe (ZETIA) 10 mg tablet Take 1 tablet by mouth once daily. Blood Pressure Monitor 1 Each once daily. isosorbide mononitrate ER (IMDUR) 30 mg 24 hr tablet Take 1 tablet by mouth once daily. Per [place] aspirin, enteric coated (ASPIRIN, ENTERIC COATED) 81 mg EC tablet Take 1 tablet by mouth once daily. multivitamin tablet Take 1 tablet by mouth once daily. nitroglycerin sublingual (NITROQUICK) 0.4 mg SL tablet Dissolve 1 tablet under the tongue every 5 minutes as needed for chest pain. docosahexaenoic acid/epa (FISH OIL ORAL) Take 1,000 mg by mouth once daily. cholecalciferol (VITAMIN D3) 5,000 unit tab Take 5,000 Units by mouth once daily. ascorbic acid, vitamin C, (VITAMIN C) 500 mg tablet Take 500 mg by mouth once daily. doxepin capsule 25 mg Take 1 capsule by mouth daily at bedtime. VITAMIN B COMPLEX (B COMPLEX 1 ORAL) Take 1 tablet by mouth once daily. diphenhydrAMINE (BENADRYL) 25 mg capsule Take 25 mg by mouth every 6 hours as needed. No current facility-administered medications on file prior to visit. Social History Social History Tobacco Use Smoking status: Former Types: Cigarettes Smokeless tobacco: Never Vaping Use Vaping status: Never Used Substance Use Topics Alcohol use: Yes Comment: 6 pack of beer a week on average Drug use: No Review of Symptoms REVIEW OF SYSTEMS SEE HPI EXAM: BP 129/73 Wt 93 kg (205 lb 0.4 oz) BMI 29.68 kg/m General Appearance: Well appearing, alert, in no acute distress, well-hydrated, well nourished. Lungs: Lungs clear to auscultation. No wheezing, rhonchi, rales.. Heart: RRR without murmur, gallop, or rubs. No ectopy. Peripheral Pulses: Normal. Health Maintenance List Abdominal Aortic Aneurysm Screening Never done Hepatitis A Vaccine(1 of 2 - Risk 2-dose series) Never done Shingrix Vaccine(1 of 2) Never done Hepatitis B Vaccine(1 of 3 - Risk 3-dose series) Never done RSV Vaccine(1 - Risk 60-74 years 1-dose series) Never done DTaP,Tdap,Td Vaccine(2 - Td or Tdap) due on 03/04/2018 Advance Directive Discussion due on 07/24/2024 Covid-19 Vaccine() due on 10/30/2024 Annual PCP Team Chronic Disease Visit due on 07/31/2025 Colorectal Cancer Screening due on 09/05/2025 BP Controlled (<130/80) due on 10/23/2025 LDL Cholesterol due on 10/30/2025 Diabetes Screening due on 10/31/2027 Lipid Screening due on 10/30/2029 Influenza Vaccine Completed Pneumococcal Vaccine: 50+ Completed Hepatitis C Screening Discontinued Data reviewed Latest Ref Rng 10/30/2024 WBC 3.70 - 11.00 k/uL 6.58 RBC 4.20 - 6.00 m/uL 4.05 (L) Hemoglobin 13.0 - 17.0 g/dL 14.0 Hematocrit 39.0 - 51.0 % 41.9 MCV 80.0 - 100.0 fL 103.5 (H) MCH 26.0 - 34.0 pg 34.6 (H) MCHC 30.5 - 36.0 g/dL 33.4 RDW-CV 11.5 - 15.0 % 13.5 Platelet Count 150 - 400 k/uL 208 MPV 9.0 - 12.7 fL 10.4 Neut% % 72.0 Abs Neut (ANC) 1.45 - 7.50 k/uL 4.74 Lymph% % 9.0 Abs Lymph 1.00 - 4.00 k/uL 0.59 (L) [place]% % 10.9 Abs [place] <0.87 k/uL 0.72 Eosin% % 7.0 Abs Eosin <0.46 k/uL 0.46 (H) Baso% % 0.8 Abs Baso <0.11 k/uL 0.05 Immature Gran % % 0.3 IMMATURE GRANS (ABS) <0.10 k/uL <0.03 NRBC /100 WBC 0.0 Absolute nRBC <0.01 k/uL <0.01 DTYPE Auto Protein, Total 6.3 - 8.0 g/dL 7.5 Albumin 3.9 - 4.9 g/dL 4.3 Calcium 8.5 - 10.2 mg/dL 9.9 Bilirubin, Total 0.2 - 1.3 mg/dL 0.8 Alkaline Phosphatase 38 - 113 U/L 145 (H) AST 14 - 40 U/L 51 (H) ALT 10 - 54 U/L 38 Glucose 74 - 99 mg/dL 148 (H) BUN 9 - 24 mg/dL 12 Creatinine 0.73 - 1.22 mg/dL 0.67 (L) Sodium 136 - 144 mmol/L 139 Potassium 3.7 - 5.1 mmol/L 4.7 Chloride 98 - 107 mmol/L 104 CO2 22 - 30 mmol/L 22 Anion Gap 8 - 15 mmol/L 13 eGFR >=60 mL/min/1.73m 98 Total Cholesterol, Nonfasting <200 mg/dL 182 Triglycerides, Nonfasting <150 mg/dL 113 HDL Cholesterol, Nonfasting >39 mg/dL 46 LDL Cholesterol, Nonfasting <100 mg/dL 113 (H) Non HDL Cholesterol, Nonfasting <130 mg/dL 136 (H) VLDL Cholesterol, Nonfasting <30 mg/dL 23 Total Chol/HDL Ratio, Nonfasting <5.10 mg/dL 3.96 LDL/HDL Ratio, Nonfasting <2.54 mg/dL 2.46 PSA <2.60 ng/mL 4.22 (H) PSA, Percent Free % 19 Uric Acid 4.0 - 8.1 mg/dL 5.8 Vitamin B12 232 - 1,245 pg/mL 950 Vitamin D 25 Hydroxy 31.0 - 80.0 ng/mL 38.5 Latest Ref Rng 10/30/2024 Color Yellow Dark Yellow ! Clarity Clear Cloudy ! Glucose, Urine Negative Negative Bilirubin, Urine Negative Negative Ketones, Urine Negative Trace ! Specific [place], Ur 1.005 - 1.030 1.019 Hemoglobin/Blood,Ur Negative Negative pH, Urine <8.5 5.5 Protein, Urine Negative 1+ ! Urobilinogen 0.2-1.0 EU/dL 1.0 EU/dL Nitrites Negative Negative Leukest Negative 1+ ! WBC, Urine 0-5 /HPF 6-10 /HPF ! RBC, Urine 0-2 /HPF 6-10 /HPF ! Bacteria Negative /HPF Negative Epithelial Cells /HPF None Seen Hyaline Cast 0 /LPF 4-10 /LPF ! Calcium Oxalate Crystals None Seen /HPF Few ! ASSESSMENT/PLAN: 1. Essential hypertension, benign - ICD9: 401.1, ICD10: I10 (primary diagnosis) - Controlled - Continue current medications - Recommend home blood pressure monitoring, to bring results to next visit - Encouraged sodium restriction, DASH or Mediterranean diet - Recommend regular aerobic exercise 2. Alcoholic cirrhosis, unspecified whether ascites present (HCC) - ICD9: 571.2, ICD10: K70.30 -Follows with Hepatology at [facility] 3. Advance directive discussed with patient - ICD9: V65.49, ICD10: Z71.89 - ADVANCE CARE PLAN DISCUSSION 4. Valvular heart disease - ICD9: 424.90, ICD10: I38 -Follows with cardiology at [facility] 5. Lumbosacral radiculopathy at L5 - ICD9: 724.4, ICD10: M54.17 Chronic low back pain 6. Mixed hyperlipidemia - ICD9: 272.2, ICD10: E78.2 - Controlled - Continue current medications - Counseled on healthy diet and regular exercise - Discussed need for and benefit of weight loss. BMI 29.68 kg/(m^2) 7. Coronary artery disease due to lipid rich plaque - ICD9: 414.00, 414.3, ICD10: I25.10, I25.83 -Follows with cardiology at [facility] and [facility] 8. Low vitamin D level - ICD9: 790.6, ICD10: R79.89 -Stable, continue supplementation 9. Prostate disorder - ICD9: 602.9, ICD10: N42.9 -PSA decreasing 10. Low serum vitamin B12 - ICD9: 266.2, ICD10: E53.8 -Stable, continue supplementation 11. Medication management - ICD9: V58.69, ICD10: Z79.899 -Labs reviewed 12. Screening for abdominal aortic aneurysm - ICD9: V81.2, ICD10: Z13.6 - US SCREENING FOR AAA Ni Sauceda APRN.COMMERCIAL REVIEW APPRAISER documented in this encounterM[facility]04-08-[facility] Progress note* Result Encounter Note - Stephanie Roy DO - 10/29/2024 5:16 PM EDT Can let him know the bone x-ray showed only signs of degenerative/arthritis with no suspicious lesions. Follow-up as scheduled. [facility] Work Phone: [phone]) 804-846404-08-2025 Miscellaneous Notes* Result Encounter Note - Stephanie Roy DO - 10/29/2024 5:16 PM EDT Can let him know the bone x-ray showed only signs of degenerative/arthritis with no suspicious lesions. Follow-up as scheduled. documented in this encounterM[facility]04-02-2025 History of Present illness Narrative* Kimberly Glass RT(R) - 10/23/2024 2:10 PM EDT Radiology Service Progress Note PATIENT NAME: Nazario Hutton DATE OF SERVICE: October 23, 2024 TIME: 2:25 PM PATIENT IDENTITY VERIFICATION COMPLETED USING TWO (2) IDENTIFIERS: Name and Date of confirmedby patient verbally. FALL SCREENING: Has the patient had 2 falls in the last year or 1 fall with injury or currently using an Ambulatory Assistive Device (Walker, Cane, Wheelchair, Crutches, etc.)? No PATIENT GENDER DATA: Assigned male at PATIENT RELEVANT IMPLANT DATA REVIEWED: Not Applicable PATIENT PRESENTS WITH AN IMPLANTABLE OR ATTACHED MEATMAN: No RADIOLOGY DEPARTMENT: General X-ray: Exam(s) Completed: Bone Survey PERIPHERAL IV DATA: Not applicable SIGNED BY: RT Osman(Federico) October 23, 2024 2:49 PM documented in this encounterMccull[facility]04-02-2025 NoteHNO ID: [id number] Author: KIMBERLY GLASS RT(R) Service: Radiology Author Type: Technologist Type: Progress Notes Filed: 10/23/2024 14:49 Note Text: Radiology Service Progress Note PATIENT NAME: Nazario Hutton DATE OF SERVICE: October 23, 2024 TIME: 2:25 PM PATIENT IDENTITY VERIFICATION COMPLETED USING TWO (2) IDENTIFIERS: Name and Date of confirmed by patient verbally. FALL SCREENING: Has the patient had 2 falls in the last year or 1 fall with injury or currently using an Ambulatory Assistive Device (Walker, Cane, Wheelchair, Crutches, etc.)? No PATIENT GENDER DATA: Assigned male at PATIENT RELEVANT IMPLANT DATA REVIEWED: Not Applicable PATIENT PRESENTS WITH AN IMPLANTABLE OR ATTACHED MEATMAN: No RADIOLOGY DEPARTMENT: General X-ray: Exam(s) Completed: Bone Survey PERIPHERAL IV DATA: Not applicable SIGNED BY: RT Osman(R) October 23, 2024 2:49 [facility]04-02-2025 NoteHNO ID: [id number] Author: STEPHANIE ROY, DO Service: ? Author Type: Physician Type: Progress Notes Filed: 10/23/2024 14:11 Note Text: Hematologic problem(s): 1) Monoclonal gammopathy. HPI: The patient is a 73 yo male with PMH as outlined below. CAD--SD PCI 4 stents 2021. 07/2022--Lower GI bleed. Initial consultation: Intermittent numbness fingers and half of palm. Intermittent numbness feet that can extend to just above ankle. Two episodes of isolated tongue angioedema in the last 6 months. Attributed to losartan. Possibly connected to sertraline as well. He has been seen by allergy and immunology. Presents for ongoing oncologic management. Interim history: No progression of neuropathy. Has been going on several years. PAST MEDICAL HISTORY Diagnosis Date Advance directive discussed with patient 04/18/2022 Discussed 03/2022 Alcohol abuse 09/14/2022 6 beers a day since passed in early 2021 Alcoholic cirrhosis (HCC) 06/05/[address] Francis Ash 12/08/2014 AVM (arteriovenous malformation) of colon 09/14/[address] Chacon BENIGN HYPERTENSION 03/04/2008 Coronary artery disease due to lipid rich plaque 12/06/[address] Edwards , cardio [place] Diverticulosis 09/05/2022 Elevated alkaline phosphatase level 09/03/2017 Elevated PSA 03/17/2021 Heart attack (HCC) 2021 Heart murmur, systolic 08/01/2018 High serum parathyroid hormone (PTH) 08/01/[address] elevation myocardial infarction (STEMI) 12/06/2021 Hyperuricemia 10/30/[address] 04/18/2022 DPA: Jae (son) Low serum vitamin B12 05/18/2023 Low vitamin D level 03/15/2021 Lumbosacral radiculopathy at L5 07/10/2023 Medicare annual wellness visit, subsequent 03/15/2021 Medicare Part B: Not able to find. 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 Floyd, repeat 10 yrs REMV CATARACT EXTRACAP,INSERT LENS Bilateral 07/2022 gabapentin (NEURONTIN) 300 mg capsule Take 1 capsule by mouth two times a day for 90 days. fexofenadine (MARII ALLERGY) 180 mg tablet Take 1 tablet by mouth once daily. carvedilol (COREG) 12.5 mg tablet Take 1 tablet by mouth two times a day with meals. FLUoxetine (PROZAC) 40 mg capsule Take 1 capsule by mouth once daily. allopurinol (ZYLOPRIM) 100 mg tablet TAKE 1 TABLET BY MOUTH ONCE DAILY. FOR GOUT. amLODIPine (NORVASC) 5 mg tablet Take 1 tablet by mouth once daily. ezetimibe (ZETIA) 10 mg tablet Take 1 tablet by mouth once daily. isosorbide mononitrate ER (IMDUR) 30 mg 24 hr tablet Take 1 tablet by mouth once daily. Per [place] [facility] aspirin, enteric coated (ASPIRIN, ENTERIC COATED) 81 mg EC tablet Take 1 tablet by mouth once daily. multivitamin tablet Take 1 tablet by mouth once daily. nitroglycerin sublingual (NITROQUICK) 0.4 mg SL tablet Dissolve 1 tablet under the tongue every 5 minutes as needed for chest pain. docosahexaenoic acid/epa (FISH OIL ORAL) Take 1,000 mg by mouth once daily. cholecalciferol (VITAMIN D3) 5,000 unit tab Take 5,000 Units by mouth once daily. ascorbic acid, vitamin C, (VITAMIN C) 500 mg tablet Take 500 mg by mouth once daily. doxepin capsule 25 mg Take 1 capsule by mouth daily at bedtime. VITAMIN B COMPLEX (B COMPLEX 1 ORAL) Take 1 tablet by mouth once daily. diphenhydrAMINE (BENADRYL) 25 mg capsule Take 25 mg by mouth every 6 hours as needed. carvedilol (COREG) 12.5 mg tablet Take 1 tablet by mouth two times a day with meals. Blood Pressure Monitor 1 Each once daily. ALLERGIES Allergen Reactions Arb-Angiotensin Rec* Other: See Comments angioedema Sertraline Other: See Comments angioedema Hctz [Hydrochloroth* Unknown rash Social History Tobacco Use Smoking status: Former Types: Cigarettes Smokeless tobacco: Never Vaping Use Vaping status: Never Used Substance Use Topics Alcohol use: Yes Comment: 6 pack of beer a week on average Drug use: No FAMILY HISTORY Problem Relation Age of Onset [...] No Family History Thyroid No Family History REVIEW OF SYSTEMS: Constitutional: No (more content not included)...[facility] 10-23-2024 History of Present illness Narrative* Stephanie Roy DO - 10/23/2024 1:47 PM EDT Hematologic problem(s): 1) Monoclonal gammopathy. HPI: The patient is a 73 yo male with PMH as outlined below. CAD--SD PCI 4 stents 2021. 07/2022--Lower GI bleed. Initial consultation: Intermittent numbness fingers and half of palm. Intermittent numbness feet that can extend to just above ankle. Two episodes of isolated tongue angioedema in the last 6 months. Attributed to losartan. Possibly connected to sertraline as well. He has been seen by allergy and immunology. Presents for ongoing oncologic management. Interim history: No progression of neuropathy. Has been going on several years. PAST MEDICAL HISTORY Diagnosis Date Advance directive discussed with patient 04/18/2022 Discussed 03/2022 Alcohol abuse 09/14/2022 6 beers a day since passed in early 2021 Alcoholic cirrhosis (HCC) 06/05/[address] Francis Ash 12/08/2014 AVM (arteriovenous malformation) of colon 09/14/[address] Chacon BENIGN HYPERTENSION 03/04/2008 Coronary artery disease due to lipid rich plaque 12/06/[address] Edwards , cardio [place] Diverticulosis 09/05/2022 Elevated alkaline phosphatase level 09/03/2017 Elevated PSA 03/17/2021 Heart attack (HCC) 2021 Heart murmur, systolic 08/01/2018 High serum parathyroid hormone (PTH) 08/01/[address] elevation myocardial infarction (STEMI) 12/06/2021 Hyperuricemia 10/30/[address] 04/18/2022 DPA: Jae (son) Low serum vitamin B12 05/18/2023 Low vitamin D level 03/15/2021 Lumbosacral radiculopathy at L5 07/10/2023 Medicare annual wellness visit, subsequent 03/15/2021 Medicare Part B: Not able to find. 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 Floyd, repeat 10 yrs REMV CATARACT EXTRACAP,INSERT LENS Bilateral 07/2022 gabapentin (NEURONTIN) 300 mg capsule Take 1 capsule by mouth two times a day for 90 days. fexofenadine (MARII ALLERGY) 180 mg tablet Take 1 tablet by mouth once daily. carvedilol (COREG) 12.5 mg tablet Take 1 tablet by mouth two times a day with meals. FLUoxetine (PROZAC) 40 mg capsule Take 1 capsule by mouth once daily. allopurinol (ZYLOPRIM) 100 mg tablet TAKE 1 TABLET BY MOUTH ONCE DAILY. FOR GOUT. amLODIPine (NORVASC) 5 mg tablet Take 1 tablet by mouth once daily. ezetimibe (ZETIA) 10 mg tablet Take 1 tablet by mouth once daily. isosorbide mononitrate ER (IMDUR) 30 mg 24 hr tablet Take 1 tablet by mouth once daily. Per [place] aspirin, enteric coated (ASPIRIN, ENTERIC COATED) 81 mg EC tablet Take 1 tablet by mouth once daily. multivitamin tablet Take 1 tablet by mouth once daily. nitroglycerin sublingual (NITROQUICK) 0.4 mg SL tablet Dissolve 1 tablet under the tongue every 5 minutes as needed for chest pain. docosahexaenoic acid/epa (FISH OIL ORAL) Take 1,000 mg by mouth once daily. cholecalciferol (VITAMIN D3) 5,000 unit tab Take 5,000 Units by mouth once daily. ascorbic acid, vitamin C, (VITAMIN C) 500 mg tablet Take 500 mg by mouth once daily. doxepin capsule 25 mg Take 1 capsule by mouth daily at bedtime. VITAMIN B COMPLEX (B COMPLEX 1 ORAL) Take 1 tablet by mouth once daily. diphenhydrAMINE (BENADRYL) 25 mg capsule Take 25 mg by mouth every 6 hours as needed. carvedilol (COREG) 12.5 mg tablet Take 1 tablet by mouth two times a day with meals. Blood Pressure Monitor 1 Each once daily. ALLERGIES Allergen Reactions Arb-Angiotensin Rec* Other: See Comments angioedema Sertraline Other: See Comments angioedema Hctz [Hydrochloroth* Unknown rash Social History Tobacco Use Smoking status: Former Types: Cigarettes Smokeless tobacco: Never Vaping Use Vaping status: Never Used Substance Use Topics Alcohol use: Yes Comment: 6 pack of beer a week on average Drug use: No FAMILY HISTORY Problem Relation Age of Onset [...] No Family History Thyroid No Family History REVIEW OF SYSTEMS: Constitutional: No episodes of fever and night sweats. Normal appetite. Neuro: No HANSON, vertigo, dizziness and imbalance. HEENT: No recent change in voice, vision or hearing. Resp: No cough, wheeze and hemoptysis. No shortness of breath at rest. CVS: No exertional chest pain, PND, orthopnea and LE edema. GI: No reflux, n/v, change in bowel habits or abdominal pain. : No dysuria or gross hematuria. Endo: No hot flashes. No polyuria and polydipsia. No heat and cold intolerance. Derm: No current rash. Heme: No unusual bleeding and unexplained bruising. Psych: Normal mood. PHYSICAL EXAM: Vitals: Blood pressure 126/76, pulse 83, temperature 37 C (98.6 F), temperature source Temporal, weight 93.9 kg (207 lb), SpO2 97%. Well-appearing and in no acute distress. EYES: Sclerae are anicteric bilaterally. LYMPHATIC: There is no palpable adenopathy. CARDIOVASCULAR: Rhythm is regular. ABDOMEN: The abdomen is nondistended. SKIN: No jaundice. ASSESSMENT/PLAN: (D47.2) Monoclonal gammopathy (primary encounter diagnosis) (G62.9) Neuropathy - (NOS) Assessment: -Patient was found to have elevated serum light chains with a normal ratio. Protein electrophoresisdid not identify an M spike. He has intermittent neuropathy of the hands and feet. -I reviewed his lab work in detail. Very low level IgG kappa monoclonal protein in the serum. None in the urine. Very unlikely to be related to neuropathy. Discussed obtaining bone survey. If normal then no bone marrow biopsy required given he has an IgG monoclonal protein along with a normal lightchain ratio and serum monoclonal protein Quantifiable. Discussed plan for surveillance. Explained the diagnosis of MGUS and the risk of progression to myeloma of 1 %/year. -Also discussed alcohol as a potential cause of neuropathy. Plan: -Bone survey today. 6-month follow-up if no suspicious lesions. Portions of this documentation were copied and pasted from my previous office visit note dated 09/25/2024 in order to provide a cohesive continuity of the history. The note has been reviewed and editedand updated as necessary. I spent a total of 25 minutes on the date of the service which included preparing to see the patient (cannot find EMG report in [facility] electronic record), [id number] patient care, completing clinical documentation, obtaining and/or reviewing separately obtained history, counseling and educating the p atient/family/caregiver, ordering medications, tests, or procedures, communicating with other HCPs (not separately reported), and communicating results to the patient/family/caregiver. Stephanie Roy DO documented in this encounterM[facility]04-[facility]25 NoteHNO ID: [id number] Author: GANESH WHITE MA Service: ? Author Type: Gas Transfer Operator Type: Progress Notes Filed: 10/23/2024 11:25 Note Text: Scan on 10/21/2024 3:42 PM by Provider, ELIZABETH Smart: Miscellaneous Lab Ganesh White [facility]04-02-2025 History of Present illness Narrative* Ganesh White MA - 10/23/2024 11:25 AM EDT Scan on 10/21/2024 3:42 PM by Provider, ELIZABETH Smart: Miscellaneous Lab Ganesh White MA documented in this encounterM[facility]03-[facility] Telephone encounter Note * Telephone Encounter - Jagruti Reich - 10/01/2024 1:25 PM EDT Relayed message to patient. Lab and office visit scheduled with patient. Patient aware to flower picker 24 hr urine container prior to 10/21 when he comes in for lab work. He willbring urine to that appt. [facility] Work Phone: 1(575) 683-354403-11-2025 Miscellaneous Notes* Telephone Encounter - Jagruti Reich - 10/01/2024 1:25 PM EDT Relayed message to patient. Lab and office visit scheduled with patient. Patient aware to flower picker 24 hr urine container prior to 10/21 when he comes in for lab work. He willbring urine to that appt. * Telephone Encounter - Tayler Leahy LPN - 10/01/2024 8:37 AM EDT Second message left for patient to contact office. Tayler Leahy LPN * Telephone Encounter - Tayler Leahy LPN - 09/30/2024 8:58 AM EDT Message left for patient to contact office. Tayler Leahy LPN * Telephone Encounter - Stephanie Roy DO - 09/27/2024 5:33 PM EST Can let him know the lab work revealed a very low level monoclonal protein which I think will be ofno clinical consequence but does require further workup. Needs ionized calcium and 24-hour urine M spike then office visit with me. Stephanie Roy DO documented in this encounterM[facility]03-11-[facility]25 Telephone encounter Note * Telephone Encounter - Tayler Leahy LPN - 10/01/2024 8:37 AM EDT Second message left for patient to contact office. Tayler Leahy LPN [facility]03-10-2025 Telephone encounter Note* Telephone Encounter - Tayler Leahy LPN - 09/30/2024 8:58 AM EDT Message left for patient to contact office. Tayler Leahy LPN [facility]03-07-2025 Telephone encounter Note* Telephone Encounter - Stephanie Roy DO - 09/27/2024 5:33 PM EST Can let him know the lab work revealed a very low level monoclonal protein which I think will be ofno clinical consequence but does require further workup. Needs ionized calcium and 24-hour urine M spike then office visit with me. Stephanie Roy DO [facility]03-05-2025 History of Present illness Narrative* Stephanie Roy, - 09/25/2024 2:00 PM EST Patient referred by Dr. 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 HPI: The patient is a 73 yo male with PMH as outlined below. CAD--SD PCI 4 stents 2021. 07/2022--Lower GI bleed. Intermittent numbness fingers and half of palm. Intermittent numbness feet that can extend to just above ankle. 2 episodes of isolated tongue angioedema in the last 6 months. Attributed to losartan. Possibly connected to sertraline as well. He has been seen by allergy and immunology. PAST MEDICAL HISTORY Diagnosis Date Advance directive discussed with patient 04/18/2022 Discussed 03/2022 Alcohol abuse 09/14/2022 6 beers a day since passed in early 2021 Alcoholic cirrhosis (HCC) 06/05/[address] Francis Ash 12/08/2014 AVM (arteriovenous malformation) of colon 09/14/[address] Chacon BENIGN HYPERTENSION 03/04/2008 Coronary artery disease due to lipid rich plaque 12/06/[address] Edwards , cardio [place] Diverticulosis 09/05/2022 Elevated alkaline phosphatase level 09/03/2017 Elevated PSA 03/17/2021 Heart murmur, systolic 08/01/2018 High serum parathyroid hormone (PTH) 08/01/[address] elevation myocardial infarction (STEMI) 12/06/2021 Hyperuricemia 10/30/[address] 04/18/2022 DPA: Jae (son) Low serum vitamin B12 05/18/2023 Low vitamin D level 03/15/2021 Lumbosacral radiculopathy at L5 07/10/2023 Medicare annual wellness visit, subsequent 03/15/2021 Medicare Part B: Not able to find. 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 Floyd, repeat 10 yrs REMV CATARACT EXTRACAP,INSERT LENS Bilateral 07/2022 gabapentin (NEURONTIN) 300 mg capsule Take 1 capsule by mouth two times a day for 90 days. fexofenadine (MARII) 180 mg tablet Take 1 tablet by mouth once daily. fexofenadine (MARII ALLERGY) 180 mg tablet Take 1 tablet by mouth once daily. carvedilol (COREG) 12.5 mg tablet Take 1 tablet by mouth two times a day with meals. carvedilol (COREG) 12.5 mg tablet Take 1 tablet by mouth two times a day with meals. FLUoxetine (PROZAC) 40 mg capsule Take 1 capsule by mouth once daily. FLUoxetine (PROZAC) 40 mg capsule Take 1 capsule by mouth once daily. allopurinol (ZYLOPRIM) 100 mg tablet TAKE 1 TABLET BY MOUTH ONCE DAILY. FOR GOUT. allopurinol (ZYLOPRIM) 100 mg tablet TAKE 1 TABLET BY MOUTH ONCE DAILY. FOR GOUT. amLODIPine (NORVASC) 5 mg tablet Take 1 tablet by mouth once daily. ezetimibe (ZETIA) 10 mg tablet Take 1 tablet by mouth once daily. Blood Pressure Monitor 1 Each once daily. isosorbide mononitrate ER (IMDUR) 30 mg 24 hr tablet Take 1 tablet by mouth once daily. Per [employer] atorvastatin (LIPITOR) 80 mg tablet TAKE 1 [...] 1 capsule by mouth daily at bedtime. VITAMIN B COMPLEX (B COMPLEX 1 ORAL) Take by mouth. diphenhydrAMINE (BENADRYL) 25 mg capsule Take 25 mg by mouth every 6 hours as needed. ALLERGIES Allergen Reactions Arb-Angiotensin Rec* Other: See Comments angioedema Sertraline Other: See Comments angioedema Hctz [Hydrochloroth* Unknown rash Social History Tobacco Use Smoking status: Former Types: Cigarettes Smokeless tobacco: Never Substance Use Topics Alcohol use: Yes Comment: 6 pack of beer a week on average Drug use: No FAMILY HISTORY Problem Relation Age of Onset [...] No Family History Thyroid No Family History REVIEW OF SYSTEMS: Constitutional: No episodes of fever and night sweats. Normal appetite. Neuro: No HANSON, vertigo, dizziness and imbalance. HEENT: No recent change in voice, vision or hearing. Resp: No cough, wheeze and hemoptysis. No shortness of breath at rest. CVS: No exertional chest pain, PND, orthopnea and LE edema. GI: No reflux, n/v, change in bowel habits or abdominal pain. : No dysuria or gross hematuria. Endo: No hot flashes. No polyuria and polydipsia. No heat and cold intolerance. Derm: No current rash. Heme: No unusual bleeding and unexplained bruising. Psych: Normal mood. PHYSICAL EXAM: Vitals: Blood pressure 134/83, pulse 79, temperature 37.1 C (98.8 F), temperature source Temporal, height 177 cm (5' 9.69), weight 95.7 kg (211 lb), SpO2 96%. Well-appearing and in no acute distress. EYES: Sclerae are anicteric bilaterally. LYMPHATIC: There is no palpable adenopathy. CARDIOVASCULAR: Rhythm is regular. ABDOMEN: The abdomen is nondistended. SKIN: No jaundice. ASSESSMENT/PLAN: (G62.9) Neuropathy - (NOS) (primary encounter diagnosis) Assessment: -Patient was found to have elevated serum light chains with a normal ratio. Protein electrophoresisdid not identify an M spike. He has intermittent neuropathy of the hands and feet. -Requires further workup to rule out underlying monoclonal gammopathy. I discussed the various labsordered to do that. Plan: -CBC, chemistry panel, serum and spot urine for electrophoresis and immunofixation. Also check B12/MMA/copper and serum folate. -Patient will be contacted with the results of the above and any further workup that may be indicated based on those results. I spent a total of 30 minutes on the date of the service which included preparing to see the patient, [id number] patient care, completing clinical documentation, obtaining and/or reviewing separately obtained history, counseling and educating the patient/family/caregiver, ordering medications, rick ts, or procedures, communicating with other HCPs (not separately reported), and communicating results to the patient/family/caregiver. Stephanie Roy DO documented in this encounterM[facility]03-05-2025 NoteHNO ID: [id number] Author: STEPHANIE ROY DO Service: ? Author Type: Physician Type: Progress Notes Filed: 09/25/2024 15:01 Note Text: Patient referred by Dr. 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 HPI: The patient is a 73 yo male with PMH as outlined below. CAD--SD PCI 4 stents 2021. 07/2022--Lower GI bleed. Intermittent numbness fingers and half of palm. Intermittent numbness feet that can extend to just above ankle. 2 episodes of isolated tongue angioedema in the last 6 months. Attributed to losartan. Possibly connected to sertraline as well. He has been seen by allergy and immunology. PAST MEDICAL HISTORY Diagnosis Date Advance directive discussed with patient 04/18/2022 Discussed 03/2022 Alcohol abuse 09/14/2022 6 beers a day since passed in early 2021 Alcoholic cirrhosis (HCC) 06/05/[address] Francis Ash 12/08/2014 AVM (arteriovenous malformation) of colon 09/14/[address] Chacon BENIGN HYPERTENSION 03/04/2008 Coronary artery disease due to lipid rich plaque 12/06/[address] Edwards , cardio [place] Diverticulosis 09/05/2022 Elevated alkaline phosphatase level 09/03/2017 Elevated PSA 03/17/2021 Heart murmur, systolic 08/01/2018 High serum parathyroid hormone (PTH) 08/01/[address] elevation myocardial infarction (STEMI) 12/06/2021 Hyperuricemia 10/30/[address] 04/18/2022 DPA: Jae (son) Low serum vitamin B12 05/18/2023 Low vitamin D level 03/15/2021 Lumbosacral radiculopathy at L5 07/10/2023 Medicare annual wellness visit, subsequent 03/15/2021 Medicare Part B: Not able to find. 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 Floyd, repeat 10 yrs REMV CATARACT EXTRACAP,INSERT LENS Bilateral 07/2022 gabapentin (NEURONTIN) 300 mg capsule Take 1 capsule by mouth two times a day for 90 days. fexofenadine (MARII) 180 mg tablet Take 1 tablet by mouth once daily. fexofenadine (MARII ALLERGY) 180 mg tablet Take 1 tablet by mouth once daily. carvedilol (COREG) 12.5 mg tablet Take 1 tablet by mouth two times a day with meals. carvedilol (COREG) 12.5 mg tablet Take 1 tablet by mouth two times a day with meals. FLUoxetine (PROZAC) 40 mg capsule Take 1 capsule by mouth once daily. FLUoxetine (PROZAC) 40 mg capsule Take 1 capsule by mouth once daily. allopurinol (ZYLOPRIM) 100 mg tablet TAKE 1 TABLET BY MOUTH ONCE DAILY. FOR GOUT. allopurinol (ZYLOPRIM) 100 mg tablet TAKE 1 TABLET BY MOUTH ONCE DAILY. FOR GOUT. amLODIPine (NORVASC) 5 mg tablet Take 1 tablet by mouth once daily. ezetimibe (ZETIA) 10 mg tablet Take 1 tablet by mouth once daily. Blood Pressure Monitor 1 Each once daily. isosorbide mononitrate ER (IMDUR) 30 mg 24 hr tablet Take 1 tablet by mouth once daily. Per [facility] atorvastatin (LIPITOR) 80 mg tablet TAKE 1 [...] 1 capsule by mouth daily at bedtime. VITAMIN B COMPLEX (B COMPLEX 1 ORAL) Take by mouth. diphenhydrAMINE (BENADRYL) 25 mg capsule Take 25 mg by mouth every 6 hours as needed. ALLERGIES Allergen Reactions Arb-Angiotensin Rec* Other: See Comments angioedema Sertraline Other: See Comments angioedema Hctz [Hydrochloroth* Unknown rash Social History Tobacco Use Smoking status: Former Types: Cigarettes Smokeless tobacco: Never Substance Use Topics Alcohol use: Yes Comment: 6 pack of beer a week on average Drug use: No FAMILY HISTORY Problem Relation Age of Onset Cancer Mother lung cancer Ischemic Heart Disease Father 53 Alzheimer's Disease No Family History Colon Cancer No Family History Prostate Cancer No Family History Breast Cancer No Family History Ovarian cancer No Family History Diabetes No Family History Hypertension No Family History Hyperlipidemia No Family History Kidney Disease No Family History Seizures No Family History Strok (more content not included)...[facility]03-04-2025 NoteHNO ID: [id number] Author: LUPILLO MOURA LPN Service: ? Author Type: LICENSED NURSE Type: Progress Notes Filed: 09/24/2024 07:10 Note Text: Scan on 09/23/2024 4:55 PM by Provider, KENNY SmartC: Consultation - Scan on 09/23/2024 10:57 PM by ProviderBing PA-C: [facility]03-[facility] History of Present illness Narrative* Lupillo Moura LPN - 09/24/2024 6:59 AM EST Scan on 09/23/2024 4:55 PM by ProviderBing PA-C: Consultation - Scan on 09/23/2024 10:57 PM by Provider, ELIZABETH Smart: CT Scan documented in this encounterM[facility]03-03-2025 Radiology Diagnostic study note [facility] Imaging Services [address], [place] [address] Abdomen Single View MR#: [id number] Acct: [id number] Name: NAZARIO HUTTON Rep #: [id number] : 1950 M 73 From: Alejandrina Garcia DO PCP: Dr. Valeriano Beasley MD Status: REG CLI Study:Abdomen Single View Date of Exam: 09/23/24 Exam# [id number] Ordering Dr: Irma Barron MD PROCEDURE: ABDOMEN SINGLE VIEW REASON FOR EXAM: Kidney calculus TECHNIQUE: Supine and upright views of the abdomen. COMPARISON: CT of the abdomen and pelvis dated 09/06/2024 FINDINGS: Bowel gas pattern is normal. No evidence of bowel obstruction. No free air. 9 mm calculus projects over the right renal fossa, consistent with renal stones. The bones are unremarkable. RAD/Abdomen Single View IMPRESSION: Right renal stones. Reading Location: [facility] CC: Dr. Valeriano Beasley MD; Dr. Geovani Barron MD ~ Industrial Editor: Signed [facility]02-27-2025 Evaluation note* Diagnosis Onset Date Resolution Status Admit Date Kidney stone on left side acute September 19, 2024 1:55pm Cirrhosis, alcoholic chronic Febr [id number] 1:55pm Hx of lower gastrointestinal bleeding chronic September 19, 2 025 1:55pm [facility] Work Phone: 1(524) 276-663702-27-2025 Evaluation note* Diagnosis Onset Date Resolution Status Admit Date Kidney stone on left side acute September 19, 2024 1:55pm Cirrhosis, alcoholic chronic Febr [id number] 1:55pm Hx of lower gastrointestinal bleeding chronic September 19 1:55pm Atherosclerotic heart diseas e of [place] coronary artery without angina pectoris acute November 05, 2024 12:58pm Essential hypertension acute Ap ril 2024 12:58pm Hyperlipidemia acute October 12:58pm [facility] Work Phone: 1(878) 569-687402-27-2025 Evaluation note* Diagnosis Onset Date Resolution Status Admit Date Kidney stone on left side acute September 19, 2024 1:55pm Cirrhosis, alcoholic chronic Febr 2024 1:55pm Hx of lower gastrointestinal bleeding chronic September 19 025 1:55pm Atherosclerotic heart diseas e of [place] coronary artery without angina pectoris acute November 05, 2024 12:58pm Essential hypertension acute Ap ril 2024 12:58pm Hyperlipidemia acute October 12:58pm Acute respiratory failure acute December 27, 2024 1:58pm Angioedema acute December 27, 2024 1:58pm Eosinophilia acute December 27 1:58pm Hypotension due to drugs acute December 27, 2024 1:58pm Lymphopenia acute December 27 1:58pm Monocytosis acute December 27 1:58pm [facility] Work Phone: 1(923) 110-413502-26-2025 NoteHNO ID: [id number] Author: GANESH WHITE MA Service: ? Author Type: Gas Transfer Operator Type: Progress Notes Filed: 09/18/2024 07:58 Note Text: Scan on 09/17/2024 4:35 AM by Provider, Bing PAOndinaC: Miscellaneous Lab Scan on 09/17/2024 9:16 AM by Provider, Bing, PAOndinaC: Miscellaneous Lab Ganesh White [facility]02-26-2025 History of Present illness Narrative* Ganesh White MA - 09/18/2024 7:58 AM EST Scan on 09/17/2024 4:35 AM by Bing Salmeron PA-C: Miscellaneous Lab Scan on 09/17/2024 9:16 AM by Bing Salmeron PA-C: Miscellaneous Lab Ganesh White MA documented in this encounterM[facility]02-25-2025 NoteHNO ID: [id number] Author: LUPILLO MOURA LPN Service: ? Author Type: LICENSED NURSE Type: Progress Notes Filed: 09/17/2024 07:00 Note Text: Scan on 09/17/2024 4:35 AM by Bing Salmeron PA-C: Miscellaneous Lab [facility]02-25-2025 History of Present illness Narrative* Lupillo Moura LPN - 09/17/2024 7:00 AM EST Scan on 09/17/2024 4:35 AM by Bing Salmeron PA-C: Miscellaneous Lab documented in this encounterMccull[facility]02-21-2025 NoteHNO ID: [id number] Author: LUPILLO MOURA LPN Service: ? Author Type: LICENSED NURSE Type: Progress Notes Filed: 09/13/2024 07:27 Note Text: Scan on 09/12/2024 5:13 PM by Bing Salmeron PA-C: Chemistry Scan on 09/12/2024 4:19 PM by Bing Salmeron PA-C: Chemistry Scan on 09/12/2024 3:26 PM by Bing Salmeron PA-C: [facility] History of Present illness Narrative* Lupillo Moura LPN - 09/13/2024 7:27 AM EST Scan on 09/12/2024 5:13 PM by Bing Salmeron PA-C: Chemistry Scan on 09/12/2024 4:19 PM by Bing Salmeron PA-C: Chemistry Scan on 09/12/2024 3:26 PM by ProviderBing PA-C: Hematology documented in this encounterMccull[facility]02-15-2025 NoteHNO ID: [id number] Author: LUPILLO OMURA LPN Service: ? Author Type: LICENSED NURSE Type: Progress Notes Filed: 09/07/2024 10:31 Note Text: Scan on 09/06/2024 6:27 PM by Bing Salmeron PA-C: [facility]02-[facility]-2025 History of Present illness Narrative* Lupillo Moura LPN - 09/07/2024 10:31 AM EST Scan on 09/06/2024 6:27 PM by Bing Salmeron PA-C: CT Scan documented in this encounterMcc[facility]02-11-2025 History of Present illness Narrative* Nyla De Jesus DO - 09/03/2024 3:10 PM EST Images from the original note were not included. Rheumatology Clinic New Patient Virtual Note Date of Service: 09/03/2024 Patient: Nazario Hutton Medical Record: [id number] Primary Care Physician: Valeriano Beasley MD Last [facility]: [facility] Referring Provider: Patria Khanna [address] [place] [address] Khanna, Patria Solis Jr., MD for an opinion regarding positive GALLO. My final recommendations will be communicated back to the requesting physician by way of shared Medical record or letter to requesting physician via US mail. SUBJECTIVE: Nazario Hutton is a 73 year old White male who presents on 09/03/2024 for a virtual visit. Patient presents with: Abnormal Lab . His most recent GALLO was positive (01/02/2024). Recent infusions: no recent infusions HISTORY OF PRESENT ILLNESS Referred by neurology for positive GALLO. INTERVAL HISTORY Patient states that everything is the system for me to look at. He doesn't know what rheumatology is. He is have tingling in hands, feet. Feet feel spongy at times. Balance as been off. He went to neurology. He was referred to adult health clinical nurse specialist and was told that some nerve issues could be contributing. Symptoms started about 7 years ago. Symptoms have increased over time. No pain. Symptoms are not constant. Not worse at a certain time of the day. Can occur randomly at different times of day. Normally just one area affected at a time. Sometimes feet swell randomly. Swelling lasts a few hours at time. Elevating his feet helps with the swelling. Denies injuries prior to onset of symptoms. No frequent illnesses. Oral ulcers - no Nasal ulcers - no Rashes - no Photosensitivity rashes - no; does get sunburnt more easily now Alopecia - no Raynaud's - no Sicca symptoms - yes History of blood clots - no Two episodes of tongue swelling. No trouble breathing. Never determined cause, however orders say related to JOSE inhibitors and sertraline. Now takes daily marii. Gabapentin seems to be helping with neuropathy symptoms. History of heart attack in 2021. Was started on a lot of medications after this - wonders if medications are contributing to his symptoms. Patient Entered Data: PAIN EVALUATION No data found in the last 1 encounters. PROMIS Assessments 12/05/2021 08/29/2024 PROMIS Assessments Physical Health Percentile 22 22 Mental Health Percentile 26 26 Pain Score 4 3 RAPID 3 [place] Activities of Daily Living 09/03/2024 3:15 PM Dress self? Get in and out of bed? Walk outdoors? Wash and dry body? Get in and out of car? RAPID 3 Disease Activity Weighed Score Levels: 0 - 1: Near Remission 1.3 - 2.0: Low Severity 2.3 - 4.0: Moderate Severity 4.3 - 10.0: High Severity 09/03/2024 RAPID-3 Weighed Score RAPID 3 Weighed Score Incomplete Current Outpatient Medications Medication Sig Dispense Refill gabapentin (NEURONTIN) 300 mg capsule Take 1 capsule by mouth two times a day for 90 days. 60 capsule 2 fexofenadine (MARII) 180 mg tablet Take 1 tablet by mouth once daily. 30 tablet 0 fexofenadine (MARII ALLERGY) 180 mg tablet Take 1 tablet by mouth once daily. 90 tablet 3 carvedilol (COREG) 12.5 mg tablet Take 1 tablet by mouth two times a day with meals. 180 tablet 1 FLUoxetine (PROZAC) 40 mg capsule Take 1 capsule by mouth once daily. 90 capsule 1 FLUoxetine (PROZAC) 40 mg capsule Take 1 capsule by mouth once daily. 30 capsule 0 allopurinol (ZYLOPRIM) 100 mg tablet TAKE 1 TABLET BY MOUTH ONCE DAILY. FOR GOUT. 90 tablet 1 allopurinol (ZYLOPRIM) 100 mg tablet TAKE 1 TABLET BY MOUTH ONCE DAILY. FOR GOUT. 30 tablet 0 amLODIPine (NORVASC) 5 mg tablet Take 1 tablet by mouth once daily. 90 tablet 1 ezetimibe (ZETIA) 10 mg tablet Take 1 tablet by mouth once daily. 90 tablet 1 Blood Pressure Monitor 1 Each once daily. 1 Kit 0 isosorbide mononitrate ER (IMDUR) 30 mg 24 hr tablet Take 1 tablet by mouth once daily. Per [facility] atorvastatin (LIPITOR) 80 mg tablet TAKE 1 TABLET BY MOUTH ONCE DAILY. FOR CHOLESTEROL. 90 tablet 1 aspirin, enteric coated (ASPIRIN, ENTERIC COATED) 81 mg EC tablet Take 1 tablet by mouth once daily. 90 tablet 3 multivitamin tablet Take 1 tablet by mouth [...] 1 capsule by mouth daily at bedtime. 90 capsule 1 VITAMIN B COMPLEX (B COMPLEX 1 ORAL) Take by mouth. diphenhydrAMINE (BENADRYL) 25 mg capsule Take 25 mg by mouth every 6 hours as needed. carvedilol (COREG) 12.5 mg tablet Take 1 tablet by mouth two times a day with meals. 60 tablet 0 No current facility-administered medications for this visit. Review of Systems: RHEUMATOLOGIC REVIEW OF SYSTEMS: Gen: N fever/Y chills, N unexpected weight change, Y fatigue, Y headaches HEENT: Y dry eyes/Y dry mouth, N oral/nasal ulcers, N iritis/uveitis Cardio: N chest pain, N palpitations Pulm: N shortness of breath, N cough GI: N abdominal pain, N diarrhea/N constipation, Y heartburn, N IBD Skin: N rashes, N photosensitivity rashes, N psoriasis Heme: N Raynaud's, N blood clot Neuro: Y paraesthesias, N weakness MSK: As per HPI. PAST MEDICAL HISTORY Diagnosis Date Advance directive discussed with patient 04/18/2022 Discussed 03/2022 Alcohol abuse 09/14/2022 6 beers a day since passed in early 2021 Alcoholic cirrhosis (HCC) 06/05/[address] Blanco Anxiety 12/08/2014 AVM (arteriovenous malformation) of colon 09/14/[address] Chacon BENIGN HYPERTENSION 03/04/2008 Coronary artery disease due to lipid rich plaque 12/06/[address] Edwards , cardio [place] Diverticulosis 09/05/2022 Elevated alkaline phosphatase level 09/03/2017 Elevated PSA 03/17/2021 Heart murmur, systolic 08/01/2018 High serum parathyroid hormone (PTH) 08/01/[address] elevation myocardial infarction (STEMI) 12/06/2021 Hyperuricemia 10/30/[address] 04/18/2022 DPA: Jae (son) Low serum vitamin B12 05/18/2023 Low vitamin D level 03/15/2021 Lumbosacral radiculopathy at L5 07/10/2023 Medicare annual wellness visit, subsequent 03/15/2021 Medicare Part B: Not able to find. 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 Floyd, repeat 10 yrs REMV CATARACT EXTRACAP,INSERT LENS Bilateral 07/2022 FAMILY HISTORY Problem Relation Age of Onset [...] No Family History Thyroid No Family History Allergies: Arb-Angiotensin Rec* Other: See Comments Comment:angioedema Sertraline Other: See Comments Comment:angioedema Hctz [Hydrochloroth* Unknown Comment:rash Objective OBJECTIVE: Physical Exam: There were no vitals taken for this visit. Gen: Awake and alert, sitting in chair, NAD HEENT: NC, AT, no scleral icterus or conjunctival erythema Pulm: Normal WOB on RA. No conversational dyspnea. No audible wheezes. Skin: No rashes on visualized skin. No significant bruising. Neuro: No facial asymmetry. No slurred speech. Labs: Latest Ref Rng & Units 04/04/2024 10/17/2023 04/14/2023 12/13/2022 CBC WBC 3.70 - 11.00 k/uL 8.41 7.57 7.49 6.7 Hemoglobin 13.0 - 17.0 g/dL 12.8 14.1 15.6 15 Hematocrit 39.0 - 51.0 % 39.0 42.4 46.6 46.7 Platelet Count 150 - 400 k/uL 193 224 225 205 Abs Neut (ANC) 1.45 - 7.50 k/uL 6.17 5.05 4.86 NEUTROPHILS ABSOLUTE 1.4 - 7.0 k/uL 4.9 Abs Lymph 1.00 - 4.00 k/uL 0.64 0.83 0.91 This result is from an external source. Latest Ref Rng & Units 04/04/2024 02/08/2024 10/17/2023 08/28/2023 CMP Sodium 136 - 144 mmol/L 142 138 Potassium 3.7 - 5.1 mmol/L 4.6 4.2 Chloride 98 - 107 mmol/L 109 103 CO2 22 - 30 mmol/L 22 20 Glucose 74 - 99 mg/dL 94 111 BUN 9 - 24 mg/dL 15 10 Creatinine 0.73 - 1.22 mg/dL 0.74 0.76 0.72 0.80 Calcium 8.5 - 10.2 mg/dL 9.7 9.2 AST 14 - 40 U/L 47 43 ALT 10 - 54 U/L 38 30 Alkaline Phosphatase 38 - 113 U/L 110 130 Latest Ref Rng & Units 04/04/2024 10/17/2023 04/14/2023 04/13/2022 Uric Acid Uric Acid 4.0 - 8.1 mg/dL 5.3 4.9 6.0 5.9 Latest Ref Rng & Units 01/02/2024 07/09/2018 10/29/2014 ESR, WSR WSR 0 - 15 mm/hr 27 21 15 Latest Ref Rng & Units 07/09/2018 CRP CRP <0.9 mg/dL 0.6 Latest Ref Rng & Units 08/19/2024 C3, C4 C4 13 - 46 mg/dL 32 Latest Ref Rng & Units 05/16/2024 Hepatitis Screen Hep A Ab, IgM Negative Negative Hep B Core Ab, IgM Negative Negative Hep B Surface Ag Negative Negative Latest Ref Rng & Units 01/02/2024 Antibodies GALLO Negative Positive GALLO Titer 1:80 GALLO Pattern Nuclear fine speckled DNA Antibody <=200 IU/mL 495 Crithidia lucillae Negative Negative Anti-Sm <1.0 AI <0.2 Sm Antibody Negative Negative Ribosomal SALES TRAINING COORDINATOR Ab <1.0 AI <0.2 Ribosomal SALES TRAINING COORDINATOR Qualitative Negative Negative Chromatin Ab <1.0 AI <0.2 Chromatin Ab Qual Negative Negative SSA Antibody Qual Negative Negative Anti-SSA <1.0 AI <0.2 Anti-SSB <1.0 AI <0.2 SALES TRAINING COORDINATOR Antibody QUAL Negative Negative Scleroderma Ab Qual Negative Negative Scl-70 Abs, EIA <1.0 AI <0.2 Centromere Ab <1.0 AI <0.2 CENTROMERE AB QUAL Negative Negative FRANCIA-1 ANTIBODY, IGG <1.0 AI <0.2 FRANCIA 1 ANTIBODY QUAL Negative Negative Latest Ref Rng & Units 04/04/2024 10/17/2023 04/14/2023 04/13/2022 Urinalysis Protein, Urine Negative Negative Negative Trace Trace RBC, Urine 0-2 /HPF 0-2 /HPF 0-2 /HPF 0-3 /HPF 0-3 /HPF Latest Ref Rng & Units 04/13/2022 04/14/2023 04/04/2024 Vitamin D Vitamin D 25 Hydroxy 31.0 - 80.0 ng/mL 37.8 33.9 27.1 Latest Ref Rng & Units 04/14/2023 10/17/2023 04/04/2024 Albumin Albumin 3.9 - 4.9 g/dL 4.3 4.1 3.8 Imaging: Last XR Hand/Finger - Impression Only No resulted procedures found. Last MRI Hand - Impression Only No resulted procedures found. Last XR Chest - Impression Only XR CHEST PA/LAT Collected: 10/29/2014 4:04 PM (Final result) Last XR Cervical Spine - Impression Only No resulted procedures found. Last XR Knee - Impression Only No resulted procedures found. Last 2 XR Hip/Pelvis - Impression Only No resulted procedures found. Last XR Lumbar Spine - Impression Only No resulted procedures found. Last XR Foot - Impression Only No resulted procedures found. ASSESSMENT/PLAN: (R76.8) Positive GALLO (antinuclear antibody) (primary encounter diagnosis) (R76.8) Ds DNA antibody positive (G62.9) Neuropathy 73 year old male found to have positive GALLO and dsDNA during work up for neuropathy. Low positive GALLO 1:80. No history or physical exam findings suggestive of underlying autoimmune/connective tissue disease. Chronic lymphopenia, but no other evidence of chronic inflammation on labs. Low suspicion for lupus or lupus related illness. Will update labs as below for further assessment. Patient informed that an GALLO is a nonspecific screening test. Recommend follow up with hematology asordered - both GALLO and dsDNA antibodies can be see in blood cell dyscrasias. [facility] on 09/03/24 C3 COMPLEMENT C4 COMPLEMENT SEDIMENTATION RATE, WESTERGREN C-REACTIVE PROTEIN DNA ANTIBODY DS BLD COMPLETE BLOOD COUNT AND DIFFERENTIAL COMPREHENSIVE METABOLIC PANEL CONSULT TO RHEUM/IMMUN DISEASE No follow-ups on file. Nyla De Jesus DO Rheumatology 09/02/2024 I spent a total of 62 minutes on the date of the service which included preparing to see the patient, [id number] patient care, completing clinical documentation, obtaining and/or reviewing separately obtained history, performing a medically appropriate examination, counseling and educating the pat ient/family/caregiver, ordering medications, tests, or procedures, communicating with other HCPs (not separately reported), independently interpreting results (not separately reported), and communicating results to the patient/family/caregiver. [facility] NoteHNO ID: [id number] Author: NYLA DE JESUS DO Service: ? Author Type: Physician Type: Progress Notes Filed: 09/04/2024 10:18 Note Text: Rheumatology Clinic New Patient Virtual Note Date of Service: 09/03/2024 Patient: Nazario Hutton Medical Record: [id number] Primary Care Physician: Valeriano Beasley MD Last Rheumat[facility] visit: [facility] Referring Provider: Patria Khanna [address] [place] [address] Khanna, Patria Solis Jr., MD for an opinion regarding positive GALLO. My final recommendations will be communicated back to the requesting physician by way of shared Medical record or letter to requesting physician via US mail. SUBJECTIVE: Nazario Hutton is a 73 year old White male who presents on 09/03/2024 for a virtual visit. Patient presents with: Abnormal Lab . His most recent GALLO was positive (01/02/2024). Recent infusions: no recent infusions HISTORY OF PRESENT ILLNESS Referred by neurology for positive GALLO. INTERVAL HISTORY Patient states that everything is the system for me to look at. He doesn't know what rheumatology is. He is have tingling in hands, feet. Feet feel spongy at times. Balance as been off. He went to neurology. He was referred to adult health clinical nurse specialist and was told that some nerve issues could be contributing. Symptoms started about 7 years ago. Symptoms have increased over time. No pain. Symptoms are not constant. Not worse at a certain time of the day. Can occur randomly at different times of day. Normally just one area affected at a time. Sometimes feet swell randomly. Swelling lasts a few hours at time. Elevating his feet helps with the swelling. Denies injuries prior to onset of symptoms. No frequent illnesses. Oral ulcers - no Nasal ulcers - no Rashes - no Photosensitivity rashes - no; does get sunburnt more easily now Alopecia - no Raynaud's - no Sicca symptoms - yes History of blood clots - no Two episodes of tongue swelling. No trouble breathing. Never determined cause, however orders say related to JOSE inhibitors and sertraline. Now takes daily marii. Gabapentin seems to be helping with neuropathy symptoms. History of heart attack in 2021. Was started on a lot of medications after this - wonders if medications are contributing to his symptoms. Patient Entered Data: PAIN EVALUATION No data found in the last 1 encounters. PROMIS Assessments 12/05/2021 08/29/2024 PROMIS Assessments Physical Health Percentile 22 22 Mental Health Percentile 26 26 Pain Score 4 3 RAPID 3 [place]ña Activities of Daily Living 09/03/2024 3:15 PM Dress self? Get in and out of bed? Walk outdoors? Wash and dry body? Get in and out of car? RAPID 3 Disease Activity Weighed Score Levels: 0 - 1: Near Remission 1.3 - 2.0: Low Severity 2.3 - 4.0: Moderate Severity 4.3 - 10.0: High Severity 09/03/2024 RAPID-3 Weighed Score RAPID 3 Weighed Score Incomplete Current Outpatient Medications Medication Sig Dispense Refill gabapentin (NEURONTIN) 300 mg capsule Take 1 capsule by mouth two times a day for 90 days. 60 capsule 2 fexofenadine (MARII) 180 mg tablet Take 1 tablet by mouth once daily. 30 tablet 0 fexofenadine (MARII ALLERGY) 180 mg tablet Take 1 tablet by mouth once daily. 90 tablet 3 carvedilol (COREG) 12.5 mg tablet Take 1 tablet by mouth two times a day with meals. 180 tablet 1 FLUoxetine (PROZAC) 40 mg capsule Take 1 capsule by mouth once daily. 90 capsule 1 FLUoxetine (PROZAC) 40 mg capsule Take 1 capsule by mouth once daily. 30 capsule 0 allopurinol (ZYLOPRIM) 100 mg tablet TAKE 1 TABLET BY MOUTH ONCE DAILY. FOR GOUT. 90 tablet 1 allopurinol (ZYLOPRIM) 100 mg tablet TAKE 1 TABLET BY MOUTH ONCE DAILY. FOR GOUT. 30 tablet 0 amLODIPine (NORVASC) 5 mg tablet Take 1 tablet by mouth once daily. 90 tablet 1 ezetimibe (ZETIA) 10 mg tablet Take 1 tablet by mouth once daily. 90 tablet 1 Blood Pressure Monitor 1 Each once daily. 1 Kit 0 isosorbide mononitrate ER (IMDUR) 30 mg 24 hr tablet Take 1 tablet by mouth once daily. Per [facility] atorvastatin (LIPITOR) 80 mg tablet TAKE 1 TABLET BY MOUTH ONCE DAILY. FOR CHOLESTEROL. 90 tablet 1 aspirin, enteric coated (ASPIRIN, ENTERIC COATED) 81 mg EC tablet Take 1 tablet by mouth once daily. 90 tablet 3 multivitamin tablet Take 1 tablet by mouth [...] 1 capsule by mouth daily at bedtime. 90 capsule 1 VITAMIN B COMPLEX (B COMPLEX 1 ORAL) Take by mouth. diphenhydrAMINE (BENADRYL) 25 m (more content not included)...[facility]02-11-[facility] Telephone encounter Note* Telephone Encounter - Bhavani Turk LPN - 09/03/2024 7:52 AM EST ----- Message from Patria Khanna MD sent at 09/02/2024 4:06 PM EST ----- Please let patient know that given the findings of his lab work thus far, I am concerned for a plasma cell disorder, and would like to arrange an evaluation by hematology. If he agrees, I will place consult. [facility]02-[facility] Miscellaneous Notes* Telephone Encounter - Bhavani Turk LPN - 09/03/2024 7:52 AM EST ----- Message from Patria Khanna MD sent at 09/02/2024 4:06 PM EST ----- Please let patient know that given the findings of his lab work thus far, I am concerned for a plasma cell disorder, and would like to arrange an evaluation by hematology. If he agrees, I will place consult. documented in this encounterM[facility] Telephone encounter Note * Telephone Encounter - Bhavani Turk LPN - 09/03/2024 7:43 AM EST ----- Message from Patria Khanna MD sent at 09/02/2024 4:06 PM EST ----- Please let patient know that given the findings of his lab work thus far, I am concerned for a plasma cell disorder, and would like to arrange an evaluation by hematology. If he agrees, I will place consult. [facility] Miscellaneous Notes* Telephone Encounter - Bhavani Turk LPN - 09/03/2024 7:43 AM EST ----- Message from Patria Khanna MD sent at 09/02/2024 4:06 PM EST ----- Please let patient know that given the findings of his lab work thus far, I am concerned for a plasma cell disorder, and would like to arrange an evaluation by hematology. If he agrees, I will place consult. documented in this encounterM[facility] NoteHNO ID: [id number] Author: PATRIA KHANNA JR, MD Service: ? Author Type: Physician Type: Progress Notes Filed: 08/30/2024 16:02 Note Text: ESTABLISHED PATIENT VISIT CHIEF COMPLAINT: Follow Up HISTORY OF PRESENT ILLNESS: Nazario Hutton is a 73 year old male, BMI 30.57 kg/m2 with a PMH significant for and per last office visit note of 01/01/24: 1. Balance problems - ICD9: 781.99, ICD10: R26.89 (primary diagnosis) 2. Abnormality of gait - ICD9: 781.2, ICD10: R26.9 3. Numbness - ICD9: 782.0, ICD10: R20.0 4. Neuropathy - ICD9: 355.9, ICD10: G62.9 5. Other symptoms and signs involving the nervous system - ICD9: 781.99, ICD10: R29.818 6. History of CAD (coronary artery disease) - ICD9: V12.59, ICD10: Z86.79 7. History of coronary artery stent placement - ICD9: V45.82, ICD10: Z95.5 Patient with symptoms as above that have been of uncertain etiology. Ddx at this time would include the following: Given acute onset of symptoms, and there occurring in the setting of SD/cardiac condition, do need to be concerned that ataxia or sense of imbalance may be secondary to cardio embolic stroke. While exam non-focal at this time, may have still had a posterior fossa stroke 2 years ago resulting in chronic symptoms. To further evaluate will have patient undergo MRI brain with MRA head and neck to evaluate for stroke as well as large vessel disease. In process, will also be evaluating for VBI which too could result in symptoms of imbalance. Based on stocking glove pattern of numbness, as well as sensory deficits on exam, also need to consider possible small fiber neuropathy with possible superimposed early large fiber neuropathy (low B12). Sensory deficits might result in sensation of unsteadiness, but also may have some degree of autonomic dysfunction as well although orthostatics negative during visit. Discussed further diagnostic options. I do not see benefit of repeating EMG/NCV as will not flower picker small fiber disorder and still too early in large fiber symptoms to be of benefit. 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 No substantial white matter disease for the patient's age. Findings are concerning for high-grade flow-limiting stenosis of the mid left common carotid artery, although this may be artifactual in etiology. Recommend CTA of the neck for further evaluation. To follow up MRA fidnings, CTA head and neck performed on 02/08/24 and per rad report: IMPRESSION: No hemodynamically significant stenosis of the extracranial carotid or vertebral artery segments. Specifically, no significant narrowing of the LEFT common iliac artery as queried on prior MRA. No large vessel occlusion, high-grade stenosis, or aneurysm within the major intracranial arteries. Imaging reviewed with pt. GALLO was + with elevated DNA ab. SPEP raised question of polyclonal immunoglobs vs low level M. Reports balance not worse since last visit but also no better. No falls. Difficulties balance getting up from a chair. No vertigo, no lightheadedness. Just feels off. Still feels gait is guarded. Again no falls. Feet still numb and thinks that has gotten worse. States numbness in feet annoying. Hemoglobin A1C (%) Date Value 07/09/2018 5.5 REVIEW OF SYSTEMS GENERAL:No weight loss, malaise or fevers. HEENT:Negative for frequent or significant headaches, No changes in hearing or vision, no nose bleeds or other nasal problems NECK:Negative for lumps, goiter, pain and significant neck swelling RESPIRATORY: Negative for cough, wheezing or shortness of breath. CARDIOVASCULAR: Negative for chest pain, leg swelling or palpitations. GASTROINTESTINAL: Negative for abdominal discomfort, blood in stools or black stools or change in bowel habits GENITOURINARY: No history of dysuria, frequency or incontinence MUSCULOSKELETAL: Negative for joint pain or swelling, back pain or muscle pain. NEUROLOGIC:Negative for focal numbness or weakness, headaches and dizziness or syncope, vision changes, speech/languag changes - EXCEPT that as per HPI above. SKIN:Negative for lesions, rash, and itching. LAB/IMAGING: Those performed since patient's last visit have been reviewed. WBC (k/uL) Date Value 04/04/2024 8.41 RBC (m/uL) Date Value 04/04/2024 3.67 (L) Hemoglobin (g/dL) Date Value 04/04/2024 12.8 (L) Hematocrit (%) Date Value 04/04/2024 39.0 MCV (fL) Date Value 04/04/2024 106.3 (H) MCH (pg) Date Value 04/04/2024 34.9 (H) MCHC (g/dL) Date Value 04/04/2024 32.8 RDW-CV (%) Date Value 04/04/2024 13.1 Platelet Count (k/uL) (more content not included)...[facility] 08-30-2024 History of Present illness Narrative* Patria Khanna Jr., MD - 08/30/2024 3:25 PM EST ESTABLISHED PATIENT VISIT CHIEF COMPLAINT: Follow Up HISTORY OF PRESENT ILLNESS: Nazario Hutton is a 73 year old male, BMI 30.57 kg/m2 with a PMH significant for and per last office visit note of 01/01/24: 1. Balance problems - ICD9: 781.99, ICD10: R26.89 (primary diagnosis) 2. Abnormality of gait - ICD9: 781.2, ICD10: R26.9 3. Numbness - ICD9: 782.0, ICD10: R20.0 4. Neuropathy - ICD9: 355.9, ICD10: G62.9 5. Other symptoms and signs involving the nervous system - ICD9: 781.99, ICD10: R29.818 6. History of CAD (coronary artery disease) - ICD9: V12.59, ICD10: Z86.79 7. History of coronary artery stent placement - ICD9: V45.82, ICD10: Z95.5 Patient with symptoms as above that have been of uncertain etiology. Ddx at this time would includethe following: Given acute onset of symptoms, and there occurring in the setting of SD/cardiac condition, do need to be concerned that ataxia or sense of imbalance may be secondary to cardio embolic stroke. While exam non-focal at this time, may have still had a posterior fossa stroke 2 years ago resulting in chronic symptoms. To further evaluate will have patient undergo MRI brain with MRA head and neck to evaluate for stroke as well as large vessel disease. In process, will also be evaluating for VBI which too could result in symptoms of imbalance. Based on stocking glove pattern of numbness, as well as sensory deficits on exam, also need to consider possible small fiber neuropathy with possible superimposed early large fiber neuropathy (low B12). Sensory deficits might result in sensation of unsteadiness, but also may have some degree of autonomic dysfunction as well although orthostatics negative during visit. Discussed further diagnosticoptions. I do not see benefit of repeating EMG/NCV as will not flower picker small fiber disorder and still too early in large fiber symptoms to be of benefit. 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 No substantial white matter disease for the patient's age. Findings are concerning for high-grade flow-limiting stenosis of the mid left common carotid artery, although this may be artifactual in etiology. Recommend CTA of the neck for further evaluation. To follow up MRA fidnings, CTA head and neck performed on 02/08/24 and per rad report: IMPRESSION: No hemodynamically significant stenosis of the extracranial carotid or vertebral artery segments. Specifically, no significant narrowing of the LEFT common iliac artery as queried on prior MRA. No large vessel occlusion, high-grade stenosis, or aneurysm within the major intracranial arteries. Imaging reviewed with pt. GALLO was + with elevated DNA ab. SPEP raised question of polyclonal immunoglobs vs low level M. Reports balance not worse since last visit but also no better. No falls. Difficulties balance getting up from a chair. No vertigo, no lightheadedness. Just feels off. Still feels gait is guarded. Again no falls. Feet still numb and thinks that has gotten worse. States numbness in feet annoying. Hemoglobin A1C (%) Date Value 07/09/2018 5.5 REVIEW OF SYSTEMS GENERAL:No weight loss, malaise or fevers. HEENT:Negative for frequent or significant headaches, No changes in hearing or vision, no nose bleeds or other nasal problems NECK:Negative for lumps, goiter, pain and significant neck swelling RESPIRATORY: Negative for cough, wheezing or shortness of breath. CARDIOVASCULAR: Negative for chest pain, leg swelling or palpitations. GASTROINTESTINAL: Negative for abdominal discomfort, blood in stools or black stools or change in bowel habits GENITOURINARY: No history of dysuria, frequency or incontinence MUSCULOSKELETAL: Negative for joint pain or swelling, back pain or muscle pain. NEUROLOGIC:Negative for focal numbness or weakness, headaches and dizziness or syncope, vision changes, speech/languag changes - EXCEPT that as per HPI above. SKIN:Negative for lesions, rash, and itching. LAB/IMAGING: Those performed since patient's last visit have been reviewed. WBC (k/uL) Date Value 04/04/2024 8.41 RBC (m/uL) Date Value 04/04/2024 3.67 (L) Hemoglobin (g/dL) Date Value 04/04/2024 12.8 (L) Hematocrit (%) Date Value 04/04/2024 39.0 MCV (fL) Date Value 04/04/2024 106.3 (H) MCH (pg) Date Value 04/04/2024 34.9 (H) MCHC (g/dL) Date Value 04/04/2024 32.8 RDW-CV (%) Date Value 04/04/2024 13.1 Platelet Count (k/uL) Date Value 04/04/2024 193 MPV (fL) Date Value 04/04/2024 10.5 Glucose (mg/dL) Date Value 04/04/2024 94 BUN (mg/dL) Date Value 04/04/2024 15 Creatinine (mg/dL) Date Value 04/04/2024 0.74 Sodium (mmol/L) Date Value 04/04/2024 142 Potassium (mmol/L) Date Value 04/04/2024 4.6 Chloride (mmol/L) Date Value 04/04/2024 109 (H) CO2 (mmol/L) Date Value 04/04/2024 22 Protein, Total (g/dL) Date Value 04/04/2024 7.1 Albumin (g/dL) Date Value 04/04/2024 3.8 (L) Calcium, Total (mg/dL) Date Value 04/04/2024 9.7 Alkaline Phosphatase (U/L) Date Value 04/04/2024 110 Bilirubin, Total (mg/dL) Date Value 04/04/2024 0.4 AST (U/L) Date Value 04/04/2024 47 (H) ALT (U/L) Date Value 04/04/2024 38 GALLO (no units) Date Value 01/02/2024 Positive (A) SSA Antibody IgG (AI) Date Value 01/02/2024 <0.2 SSB Antibody (AI) Date Value 01/02/2024 <0.2 URINALYSIS Specific [place], Ur Date Value Ref Range Status 04/04/2024 1.019 1.005 - 1.030 Final Glucose, Urine Date Value Ref Range Status 04/04/2024 Negative Negative Final Bilirubin, Urine Date Value Ref Range Status 04/04/2024 Negative Negative Final Ketones, Urine Date Value Ref Range Status 04/04/2024 Negative Negative Final Hemoglobin/Blood,Ur Date Value Ref Range Status 04/04/2024 Negative Negative Final Protein, Urine Date Value Ref Range Status 04/04/2024 Negative Negative Final WBC, Urine Date Value Ref Range Status 04/04/2024 0-5 /HPF 0-5 /HPF Final SSA Antibody IgG Date Value Ref Range Status 01/02/2024 <0.2 <1.0 AI Final Comment: Test Methodology: Multiplex flow immunoassay. MEDICATIONS: fexofenadine (MARII) 180 mg tablet Take 1 tablet by mouth once daily. fexofenadine (MARII ALLERGY) 180 mg tablet Take 1 tablet by mouth once daily. carvedilol (COREG) 12.5 mg tablet Take 1 tablet by mouth two times a day with meals. carvedilol (COREG) 12.5 mg tablet Take 1 tablet by mouth two times a day with meals. FLUoxetine (PROZAC) 40 mg capsule Take 1 capsule by mouth once daily. FLUoxetine (PROZAC) 40 mg capsule Take 1 capsule by mouth once daily. allopurinol (ZYLOPRIM) 100 mg tablet TAKE 1 TABLET BY MOUTH ONCE DAILY. FOR GOUT. allopurinol (ZYLOPRIM) 100 mg tablet TAKE 1 TABLET BY MOUTH ONCE DAILY. FOR GOUT. amLODIPine (NORVASC) 5 mg tablet Take 1 tablet by mouth once daily. ezetimibe (ZETIA) 10 mg tablet Take 1 tablet by mouth once daily. Blood Pressure Monitor 1 Each once daily. isosorbide mononitrate ER (IMDUR) 30 mg 24 hr tablet Take 1 tablet by mouth once daily. Per [facility] atorvastatin (LIPITOR) 80 mg tablet TAKE 1 [...] 1 capsule by mouth daily at bedtime. VITAMIN B COMPLEX (B COMPLEX 1 ORAL) Take by mouth. diphenhydrAMINE (BENADRYL) 25 mg capsule Take 25 mg by mouth every 6 hours as needed. HISTORIES PAST MEDICAL HISTORY Diagnosis Date Advance directive discussed with patient 04/18/2022 Discussed 03/2022 Alcohol abuse 09/14/2022 6 beers a day since passed in early 2021 Alcoholic cirrhosis (HCC) 06/05/[address] Francis Ash 12/08/2014 AVM (arteriovenous malformation) of colon 09/14/[address] Chacon BENIGN HYPERTENSION 03/04/2008 Coronary artery disease due to lipid rich plaque 12/06/[address] Edwards , cardio [place] Diverticulosis 09/05/2022 Elevated alkaline phosphatase level 09/03/2017 Elevated PSA 03/17/2021 Heart murmur, systolic 08/01/2018 High serum parathyroid hormone (PTH) 08/01/[address] elevation myocardial infarction (STEMI) 12/06/2021 Hyperuricemia 10/30/[address] 04/18/2022 DPA: Jae (son) Low serum vitamin B12 05/18/2023 Low vitamin D level 03/15/2021 Lumbosacral radiculopathy at L5 07/10/2023 Medicare annual wellness visit, subsequent 03/15/2021 Medicare Part B: Not able to find. 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 HEENT: NC/AT, nasal congestion absent, no oral lesions, membranes moist. NECK: ROM nml. Lungs: CTA bilaterally. CV: RRR nl S1, S2. No carotid bruits. Extr: No cyanosis, clubbing or edema. Skin: Cool to touch. NEUROLOGICAL EXAM: General: Awake, alert, oriented x3 (person,place,time), fluent, no dysarthria; comprehension, naming, repetition intact. CN: PERRL, EOMI and without nystagmus, VFF to confrontation, facial sensation and strength are normal and symmetric, hearing is intact to finger rub bilaterally, palate and tongue movements are intact and symmetric. SCM and trapezius strength normal. Motor: Normal tone, bulk and strength (5/5) bilaterally (throughout extremities x4). Coordination: FNF, WENCESLAO, HTS intact. No tremors. Sensation: Light touch intact throughout, vibration diminished in toes, pin and temp decreased distal to knees in stocking pattern (also distal to elbows javier). No evidence of neglect. Gait: Stable with normal stride and arm swing. Romberg normal. Assessment and Plan: ASSESSMENT/PLAN: 1. Neuropathy, idiopathic - ICD9: 355.9, ICD10: G60.9 (primary diagnosis) 2. Abnormal SPEP - ICD9: 790.99, ICD10: R77.8 3. Positive GALLO (antinuclear antibody) - ICD9: 795.79, ICD10: R76.8 4. Abnormality of gait - ICD9: 781.2, ICD10: R26.9 5. Numbness - ICD9: 782.0, ICD10: R20.0 Patient with overall stable neuro exam still showing sensory deficits in stocking-glove pattern including features of small fiber > large fiber. Etiology uncertain with extensive workup. That saidSPEP abnml as above as was + GALLO. Will repeat SPEP with kappa chains at this time. Will also refer to Rheumatology regarding opinion of + GALLO and other + labs on reflex. In meantime, d/w pt possible PT, and states that he would do so if he was falling but at present he feels he does not need it. Asfor numbness, will place on trial of gabapentin 300mg BID. SE and ADRs d/w pt. Note renal function normal. Encouraged exercise. Follow up 3 months or sooner prn. Note MRI brain and CTA head and neck reviewed with pt and as above, without evidence of cause of symptoms. Patria Khanna MD I spent a total of 30+ minutes on the date of the service which included preparing to see the patient, [id number] patient care, completing clinical documentation, obtaining and/or reviewing separately obtained history, performing a medically appropriate examination, counseling and educating the pa tient/family/caregiver, ordering medications, tests, or procedures, independently interpreting results (not separately reported), and communicating results to the patient/family/caregiver. Medical Decision Making: Problems: Moderate: 2+ stable chronic illnesses Data: Unique test result(s) reviewed: 2 Unique test(s) ordered: 1 Risk: Moderate: Drug management Medical Decision Making Level: 4 - Moderate * Jesus Alberto Guzman LPN - 08/30/2024 3:08 PM EST 08/29/2024 PROMIS Global Health Physical Health Summary Physical health: Good Everyday physical activity, ability: Mostly Fatigue: Moderate Pain level: 5 General health: Good Social activities/roles, ability: Good Physical Health T-Score 42.3 (Good) Physical Health Percentile 22 PROMIS Global Health Mental Health Summary Quality of life: Good Mental health (mood,thinking): Good Social satisfaction: Good Emotional problems (anxious,depressed): Sometimes Mental Health T-Score 43.5 (Good) Mental Health Percentile 26 Percentiles provide an indication of how a patient's score ranks in relation to the [place] general population. > 31st percentile is within normal limits or better *< 31st percentile is at least SD worse than population, which may be clinically relevant < 16th percentile is at least 1 SD worse than population and warrants attention 08/29/2024 Sleep Apnea Probability Snores loudly: No Tired, fatigued or sleepy in daytime: Yes Stops breathing or choking/gasping during sleep: No High blood pressure: Yes Sleep Apnea Probability Score: 67 (Recommend sleep study) [facility] NoteHNO ID: [id number] Author: JESUS ALBERTO GUZMAN LPN Service: ? Author Type: LICENSED NURSE Type: Progress Notes Filed: 08/30/2024 16:02 Note Text: 08/29/2024 PROMIS Global Health Physical Health Summary Physical health: Good Everyday physical activity, ability: Mostly Fatigue: Moderate Pain level: 5 General health: Good Social activities/roles, ability: Good Physical Health T-Score 42.3 (Good) Physical Health Percentile 22 PROMIS Global Health Mental Health Summary Quality of life: Good Mental health (mood,thinking): Good Social satisfaction: Good Emotional problems (anxious,depressed): Sometimes Mental Health T-Score 43.5 (Good) Mental Health Percentile 26 Percentiles provide an indication of how a patient's score ranks in relation to the [place] general population. > 31st percentile is within normal limits or better *< 31st percentile is at least ? SD worse than population, which may be clinically relevant < 16th percentile is at least 1 SD worse than population and warrants attention 08/29/2024 Sleep Apnea Probability Snores loudly: No Tired, fatigued or sleepy in daytime: Yes Stops breathing or choking/gasping during sleep: No High blood pressure: Yes Sleep Apnea Probability Score: 67 (Recommend sleep study)[facility]02-05[facility]2025 NoteHNO ID: [id number] Author: LUPILLO MOURA LPN Service: ? Author Type: LICENSED NURSE Type: Progress Notes Filed: 08/28/2024 07:04 Note Text: Scan on 08/27/2024 4:55 PM by Provider, External, PAOndinaC: Consultation - [facility]02-05-[facility]25 History of Present illness Narrative* Lupillo Moura LPN - 08/28/2024 7:04 AM EST Scan on 08/27/2024 4:55 PM by Provider, Bing, ELIZABETH: Consultation - documented in [facility]25 NoteHNO ID: [id number] Author: ARUN CHRISTIAN, DO Service: ? Author Type: Physician Type: Progress Notes Filed: 08/21/2024 15:38 Note Text: Allergy and Immunology DATE OF SERVICE: 08/21/2024 PRIMARY CARE PHYSICIAN: Valeriano Beasley MD REFERRING PROVIDER: Valeriano Beasley Consultation requested for an allergy/immunology evaluation. My final impression and recommendations will be communicated back to the requesting physician by way of shared medical record, fax, or US mail. CHIEF COMPLAINT: Facial Swelling HISTORY OF PRESENT ILLNESS: Nazario Hutton is a 73 year old male who presents for evaluation of swelling episodes Has had 2 episodes of isolated tongue angioedema in the last 6 months Mar 29 2024, awoke at 9 am with acute progressive tongue swelling that lasted until 5 pm Went to the ER, where he was given solumedrol, benadryl, pepcid, and discharged on steroid pack and H1/H2 blockers. He was on Losartan at the time, and was subsequently taken off and switched to amlodipine for BP control. July 18, 2024, awoke at 9 am with acute progressive tongue swelling that lasted until noon Went to the ER a little sooner this time and had the same treatment of steroids, H1/H2 blockers. In follow up with PCP he was switched off sertraline to prozac because of reports of angioedema side effects with sertraline. Was on lisinopril years ago but never had swelling side effects Denies hx of hives or angioedema previously No asthma, or significant rhinitis Data reviewed: ER encounters 03/29/24, 07/18/24 PCP encounters 04/04/24, 07/31/24 Social Hx: Social History Tobacco Use Smoking status: Never Smokeless tobacco: Never Substance Use Topics Alcohol use: Yes Drug use: No Employer And Job Title: None on file Years Of Education Completed: Not specified Marital Status: PAST MEDICAL HISTORY Diagnosis Date Advance directive discussed with patient 04/18/2022 Discussed 03/2022 Alcohol abuse 09/14/2022 6 beers a day since passed in early 2021 Alcoholic cirrhosis (HCC) 06/05/[address] Francis Ash 12/08/2014 AVM (arteriovenous malformation) of colon 09/14/[address] Chacon BENIGN HYPERTENSION 03/04/2008 Coronary artery disease due to lipid rich plaque 12/06/[address] Edwards , cardio [place] Diverticulosis 09/05/2022 Elevated alkaline phosphatase level 09/03/2017 Elevated PSA 03/17/2021 Heart murmur, systolic 08/01/2018 High serum parathyroid hormone (PTH) 08/01/[address] elevation myocardial infarction (STEMI) 12/06/2021 Hyperuricemia 10/30/[address] 04/18/2022 DPA: Jae (son) Low serum vitamin B12 05/18/2023 Low vitamin D level 03/15/2021 Lumbosacral radiculopathy at L5 07/10/2023 Medicare annual wellness visit, subsequent 03/15/2021 Medicare Part B: Not able to find. 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 Floyd, repeat 10 yrs REMV CATARACT EXTRACAP,INSERT LENS Bilateral 07/2022 Current Outpatient Medications Medication Sig carvedilol (COREG) 12.5 mg tablet Take 1 tablet by mouth two times a day with meals. FLUoxetine (PROZAC) 40 mg capsule Take 1 capsule by mouth once daily. allopurinol (ZYLOPRIM) 100 mg tablet TAKE 1 TABLET BY MOUTH ONCE DAILY. FOR GOUT. amLODIPine (NORVASC) 5 mg tablet Take 1 tablet by mouth once daily. ezetimibe (ZETIA) 10 mg tablet Take 1 tablet by mouth once daily. Blood Pressure Monitor 1 Each once daily. isosorbide mononitrate ER (IMDUR) 30 mg 24 hr tablet Take 1 tablet by mouth once daily. Per [place] [facility] atorvastatin (LIPITOR) 80 mg tablet TAKE 1 TABLET BY MOUTH ONCE DAILY. FOR CHOLESTEROL. aspirin, enteric coated (ASPIRIN, ENTERIC COATED) 81 mg EC tablet Take 1 tablet by mouth once daily. multivitamin tablet Take 1 tablet by mouth once daily. nitroglycerin sublingual (NITROQUICK) 0.4 mg SL tablet Dissolve 1 tablet under the tongue every 5 minutes as n (more content not included)...[facility]01-27-[facility] History of Present illness Narrative* Arun Christian, - 08/19/2024 1:44 PM EST Images from the original note were not included. Allergy and Immunology DATE OF SERVICE: 08/21/2024 PRIMARY CARE PHYSICIAN: Valeriano Beasley MD REFERRING PROVIDER: Valeriano Beasley Consultation requested for an allergy/immunology evaluation. My final impression and recommendations will be communicated back to the requesting physician by way of shared medical record, fax, or US mail. CHIEF COMPLAINT: Facial Swelling HISTORY OF PRESENT ILLNESS: Nazario Hutton is a 73 year old male who presents for evaluation of swelling episodes Has had 2 episodes of isolated tongue angioedema in the last 6 months Mar 29 2024, awoke at 9 am with acute progressive tongue swelling that lasted until 5 pm Went to the ER, where he was given solumedrol, benadryl, pepcid, and discharged on steroid pack andH1/H2 blockers. He was on Losartan at the time, and was subsequently taken off and switched to amlodipine for BP control. July 18, 2024, awoke at 9 am with acute progressive tongue swelling that lasted until noon Went to the ER a little sooner this time and had the same treatment of steroids, H1/H2 blockers. In follow up with PCP he was switched off sertraline to prozac because of reports of angioedema side effects with sertraline. Was on lisinopril years ago but never had swelling side effects Denies hx of hives or angioedema previously No asthma, or significant rhinitis Data reviewed: ER encounters 03/29/24, 07/18/24 PCP encounters 04/04/24, 07/31/24 Social Hx: Social History Tobacco Use Smoking status: Never Smokeless tobacco: Never Substance Use Topics Alcohol use: Yes Drug use: No Employer And Job Title: None on file Years Of Education Completed: Not specified Marital Status: PAST MEDICAL HISTORY Diagnosis Date Advance directive discussed with patient 04/18/2022 Discussed 03/2022 Alcohol abuse 09/14/2022 6 beers a day since passed in early 2021 Alcoholic cirrhosis (HCC) 06/05/[address] Blanco Anxiety 12/08/2014 AVM (arteriovenous malformation) of colon 09/14/[address] Chacon BENIGN HYPERTENSION 03/04/2008 Coronary artery disease due to lipid rich plaque 12/06/[address] Edwards , cardio [place] Diverticulosis 09/05/2022 Elevated alkaline phosphatase level 09/03/2017 Elevated PSA 03/17/2021 Heart murmur, systolic 08/01/2018 High serum parathyroid hormone (PTH) 08/01/[address] elevation myocardial infarction (STEMI) 12/06/2021 Hyperuricemia 10/30/[address] 04/18/2022 DPA: Jae (son) Low serum vitamin B12 05/18/2023 Low vitamin D level 03/15/2021 Lumbosacral radiculopathy at L5 07/10/2023 Medicare annual wellness visit, subsequent 03/15/2021 Medicare Part B: Not able to find. 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 Floyd, repeat 10 yrs REMV CATARACT EXTRACAP,INSERT LENS Bilateral 07/2022 Current Outpatient Medications Medication Sig carvedilol (COREG) 12.5 mg tablet Take 1 tablet by mouth two times a day with meals. FLUoxetine (PROZAC) 40 mg capsule Take 1 capsule by mouth once daily. allopurinol (ZYLOPRIM) 100 mg tablet TAKE 1 TABLET BY MOUTH ONCE DAILY. FOR GOUT. amLODIPine (NORVASC) 5 mg tablet Take 1 tablet by mouth once daily. ezetimibe (ZETIA) 10 mg tablet Take 1 tablet by mouth once daily. Blood Pressure Monitor 1 Each once daily. isosorbide mononitrate ER (IMDUR) 30 mg 24 hr tablet Take 1 tablet by mouth once daily. Per [facility] atorvastatin (LIPITOR) 80 mg tablet TAKE 1 [...] 1 capsule by mouth daily at bedtime. VITAMIN B COMPLEX (B COMPLEX 1 ORAL) Take by mouth. diphenhydrAMINE (BENADRYL) 25 mg capsule Take 25 mg by mouth every 6 hours as needed. carvedilol (COREG) 12.5 mg tablet Take 1 tablet by mouth two times a day with meals. (Patient not taking: Reported on 08/19/2024) FLUoxetine (PROZAC) 40 mg capsule Take 1 capsule by mouth once daily. (Patient not taking: Reportedon 08/19/2024) allopurinol (ZYLOPRIM) 100 mg tablet TAKE 1 TABLET BY MOUTH ONCE DAILY. FOR GOUT. (Patient not taking: Reported on 08/19/2024) No current facility-administered medications for this visit. ALLERGIES Allergen Reactions Arb-Angiotensin Rec* Other: See Comments angioedema Sertraline Other: See Comments angioedema Hctz [Hydrochloroth* Unknown rash PHYSICAL EXAM: BP 95/61 Pulse (!) 55 Wt 93.5 kg (206 lb 2.1 oz) SpO2 97% BMI 30.71 kg/m Physical Exam GENERAL: alert, oriented, comfortable EYES: non icteric sclera EARS: external ears normal NOSE: no audible congestion CHEST/LUNGS: respirations easy and regular SKIN: no hives or angioedema today Phone pictures: isolated tongue angioedema from both March and June episodes DATA/DIAGNOSTICS: Latest Ref Rng & Units 04/14/2023 10/17/2023 04/04/2024 CBC WBC 3.70 - 11.00 k/uL 7.49 7.57 8.41 RBC 4.20 - 6.00 m/uL 4.48 4.11 3.67 Hemoglobin 13.0 - 17.0 g/dL 15.6 14.1 12.8 Hematocrit 39.0 - 51.0 % 46.6 42.4 39.0 MCV 80.0 - 100.0 fL 104.0 103.2 106.3 MCH 26.0 - 34.0 pg 34.8 34.3 34.9 MCHC 30.5 - 36.0 g/dL 33.5 33.3 32.8 RDW-CV 11.5 - 15.0 % 12.6 13.3 13.1 Platelet Count 150 - 400 k/uL 225 224 193 MPV 9.0 - 12.7 fL 10.5 10.6 10.5 Baso% % 1.1 0.7 0.7 Abs Neut (ANC) 1.45 - 7.50 k/uL 4.86 5.05 6.17 Abs Lymph 1.00 - 4.00 k/uL 0.91 0.83 0.64 Abs [place] <0.87 k/uL 1.04 1.00 0.96 Abs Eosin <0.46 k/uL 0.57 0.62 0.43 Abs Baso <0.11 k/uL 0.08 0.05 0.06 NRBC /100 WBC 0.0 0.0 0.0 I personally reviewed and interpreted relevant prior results, notable as below: Macrocytic anemia Resolve peripheral eosinophilia MEDICAL DECISION MAKING: Assessment & Plan Angioedema, subsequent encounter Isolated tongue angioedema on 2 separate occasions I believe this was likely medication induced - Losartan, ARB, is a known risk factor for bradykinin-mediated angioedema. Effects can linger even after discontinuing the medication; it is possible that the second episode that occurred <3 months later was still related to the ARB itself. I was not previously aware of Sertraline causing angioedema, but did confirm that are rare case reports of this so it is reasonable to have discontinued this as well We will screen for other acquired causes of bradykinin mediated angioedema with C4. Doubt histaminergic angioedema, however lack of hives does not totally rule this out. Patient did feel that his symptoms were antihistamine-responsive in the ER. Can start non-sedating 2nd generationantihistamines Orders: fexofenadine (MARII) 180 mg tablet; Take 1 tablet by mouth once daily. C4 COMPLEMENT; Future Follow up: 3 months Patient advised to call or return sooner should current symptoms worsen or fail to improve or if new symptoms or problems arise. It was my pleasure to participate in the care of this patient. Arun Christian DO Allergy and Clinical Immunology [facility] Medical Decision Making: Problems: Low: Acute, uncomplicated illness or injury Data: Unique source(s) for external note(s) reviewed: 3+ Unique test(s) ordered: 1 Risk: Low: Low risk from testing/treatment Medical Decision Making Level: 3 - Low LAB ADDENDUM: Latest Ref Rng 08/19/2024 C4 13 - 46 mg/dL 32 Communicated normal results to the patient via telephone 08/21/2024 Rules out most causes of bradykinin-mediated angioedema. If has another episode despite stopping drugs that have been reported to cause angioedema as above, we may expand our work up to include othercomplement studies. Otherwise, hope to wean Marii at 3 month follow up * Olga Marcial RN - 08/19/2024 1:13 PM EST Per patient his first reaction was in March, his tongue began to swell. States his doctor attempted changing his medication but then he had another incident in June. Patient states he has no previous history of allergic reactions. Patient states that medications were changed again in July from Atenolol to Cervedilol and Sertraline to FLUoxetine. documented in this encounterM[facility] NoteHNO ID: [id number] Author: OLGA MARCIAL RN Service: ? Author Type: Registered Nurse Type: Progress Notes Filed: 08/21/2024 15:38 Note Text: Per patient his first reaction was in March, his tongue began to swell. States his doctor attempted changing his medication but then he had another incident in June. Patient states he has no previous history of allergic reactions. Patient states that medications were changed again in July from Atenolol to Cervedilol and Sertraline to FLUoxetine.[facility] 07-31-2024 History of Present illness Narrative* Valeriano Beasley MD - 07/31/2024 7:00 PM EST Images from the original note were not included. Chief Complaint Patient presents with: ED Follow-up HPI Nazario Hutton is a 73 year old male who presents here today for ER Follow Up.. Patient was sent home on prednisone and pepcid. Patient did not feel shortness of breath and never had difficulty swallowing or breathing and his throat did not feel like it was closing up. Looking up his meds one that can cause angioedema and his sertraline listed as such. Prozac does not have this listed as a side affect. Past medical history, appointments, medications, allergies reviewed. Previous Medical History PAST MEDICAL HISTORY Diagnosis Date Advance directive discussed with patient 04/18/2022 Discussed 03/2022 Alcohol abuse 09/14/2022 6 beers a day since passed in early 2021 Anxiety 12/08/2014 AVM (arteriovenous malformation) of colon 09/14/[address] Chacon BENIGN HYPERTENSION 03/04/2008 Coronary artery disease due to lipid rich plaque 12/06/[address] Edwards , cardio [place] Diverticulosis 09/05/2022 Elevated alkaline phosphatase level 09/03/2017 Elevated PSA 03/17/2021 Heart murmur, systolic 08/01/2018 High serum parathyroid hormone (PTH) 08/01/[address] elevation myocardial infarction (STEMI) 12/06/2021 Hyperuricemia 10/30/[address] 04/18/2022 DPA: Jae (son) Low serum vitamin B12 05/18/2023 Low vitamin D level 03/15/2021 Lumbosacral radiculopathy at L5 07/10/2023 Medicare annual wellness visit, subsequent 03/15/2021 Medicare Part B: Not able to find. 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 FOR GOUT. sertraline (ZOLOFT) 100 mg tablet Take one tablet by mouth daily sertraline (ZOLOFT) 100 mg tablet Take one tablet by mouth daily allopurinol (ZYLOPRIM) 100 mg tablet TAKE 1 TABLET BY MOUTH ONCE DAILY. FOR GOUT. carvedilol (COREG) 12.5 mg tablet Take 1 tablet by mouth two times a day with meals. Per Dr. Francis [place] amLODIPine (NORVASC) 5 mg tablet Take 1 tablet by mouth once daily. ezetimibe (ZETIA) 10 mg tablet Take 1 tablet by mouth once daily. Blood Pressure Monitor 1 Each once daily. isosorbide mononitrate ER (IMDUR) 30 mg 24 hr tablet Take 1 tablet by mouth once daily. Per [facility] atorvastatin (LIPITOR) 80 mg tablet TAKE 1 [...] 1 capsule by mouth daily at bedtime. VITAMIN B COMPLEX (B COMPLEX 1 ORAL) Take by mouth. diphenhydrAMINE (BENADRYL) 25 mg capsule Take 25 mg by mouth every 6 hours as needed. No current facility-administered medications on file prior to visit. Social History Social History Tobacco Use Smoking status: Never Smokeless tobacco: Never Substance Use Topics Alcohol use: Yes Drug use: No Review of Symptoms REVIEW OF SYSTEMS No symptoms on review today such as swollen tongue, difficulty swallowing or difficulty breathing. EXAM: BP 126/74 Pulse 68 Resp 16 Wt 94.8 kg (209 lb) BMI 31.13 kg/m General Appearance: Well appearing, alert, in no acute distress, well-hydrated, well nourished.. Oropharynx: Lips, mucosa, and tongue normal, teeth and gums normal, oropharynx normal. Neck: Supple, no adenopathy; thyroid symmetric, normal size, no bruits. Lungs: Lungs clear to auscultation. No wheezing, rhonchi, rales.. Heart: RRR without gallop, or rubs. No ectopy. Soft 2/6 LAYO Health Maintenance List Hepatitis A Vaccine(1 of 2 - Risk 2-dose series) Never done Shingrix Vaccine(1 of 2) Never done Hepatitis B Vaccine(1 of 3 - Risk 3-dose series) Never done RSV Vaccine(1 - Risk 60-74 years 1-dose series) Never done DTaP,Tdap,Td Vaccine(2 - Td or Tdap) due on 03/04/2018 Advance Directive Discussion due on 07/24/2024 LDL Cholesterol due on 04/04/2025 Annual PCP Team Chronic Disease Visit due on 05/29/2025 BP Controlled (<130/80) due on 05/29/2025 Colorectal Cancer Screening due on 09/05/2025 Diabetes Screening due on 04/04/2027 Lipid Screening due on 04/04/2029 Influenza Vaccine Completed Covid-19 Vaccine Completed Pneumococcal Vaccine: 50+ Completed Hepatitis C Screening Discontinued Data reviewed A/P ASSESSMENT/PLAN: 1. Angioedema, subsequent encounter - ICD9: V58.89, 995.1, ICD10: T78.3XXD - discussed referral to correctional corporal and patient agrees. Consult placed. - discussed that the sertraline could be the culprit and he is willing to have it changed to prozacat 40 mg a day. Requested Prescriptions Signed Prescriptions Disp Refills carvedilol (COREG) 12.5 mg tablet 180 tablet 1 Sig: Take 1 tablet by mouth two times a day with meals. carvedilol (COREG) 12.5 mg tablet 60 tablet 0 Sig: Take 1 tablet by mouth two times a day with meals. FLUoxetine (PROZAC) 40 mg capsule 90 capsule 1 Sig: Take 1 capsule by mouth once daily. FLUoxetine (PROZAC) 40 mg capsule 30 capsule 0 Sig: Take 1 capsule by mouth once daily. F/u at next routine or sooner if needed. I spent a total of 30 minutes on the date of the service which included preparing to see the patient, [id number] patient care, completing clinical documentation, performing a medically appropriate examination, counseling and educating the patient/family/caregiver and ordering medications, tests, or procedures. Valeriano Beasley MD documented in this encounterM[facility]01-[facility]25 NoteHNO ID: [id number] Author: VALERIANO BEASLEY MD Service: ? Author Type: Physician Type: Progress Notes Filed: 07/31/2024 20:45 Note Text: Chief Complaint Patient presents with: ED Follow-up HPI Nazario Hutton is a 73 year old male who presents here today for ER Follow Up.. Patient was sent home on prednisone and pepcid. Patient did not feel shortness of breath and never had difficulty swallowing or breathing and his throat did not feel like it was closing up. Looking up his meds one that can cause angioedema and his sertraline listed as such. Prozac does not have this listed as a side affect. Past medical history, appointments, medications, allergies reviewed. Previous Medical History PAST MEDICAL HISTORY Diagnosis Date Advance directive discussed with patient 04/18/2022 Discussed 03/2022 Alcohol abuse 09/14/2022 6 beers a day since passed in early 2021 Anxiety 12/08/2014 AVM (arteriovenous malformation) of colon 09/14/[address] Chacon BENIGN HYPERTENSION 03/04/2008 Coronary artery disease due to lipid rich plaque 12/06/[address] Edwards , cardio [place] Diverticulosis 09/05/2022 Elevated alkaline phosphatase level 09/03/2017 Elevated PSA 03/17/2021 Heart murmur, systolic 08/01/2018 High serum parathyroid hormone (PTH) 08/01/[address] elevation myocardial infarction (STEMI) 12/06/2021 Hyperuricemia 10/30/[address] 04/18/2022 DPA: Jae (son) Low serum vitamin B12 05/18/2023 Low vitamin D level 03/15/2021 Lumbosacral radiculopathy at L5 07/10/2023 Medicare annual wellness visit, subsequent 03/15/2021 Medicare Part B: Not able to find. 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 FOR GOUT. sertraline (ZOLOFT) 100 mg tablet Take one tablet by mouth daily sertraline (ZOLOFT) 100 mg tablet Take one tablet by mouth daily allopurinol (ZYLOPRIM) 100 mg tablet TAKE 1 TABLET BY MOUTH ONCE DAILY. FOR GOUT. carvedilol (COREG) 12.5 mg tablet Take 1 tablet by mouth two times a day with meals. Per [facility] amLODIPine (NORVASC) 5 mg tablet Take 1 tablet by mouth once daily. ezetimibe (ZETIA) 10 mg tablet Take 1 tablet by mouth once daily. Blood Pressure Monitor 1 Each once daily. isosorbide mononitrate ER (IMDUR) 30 mg 24 hr tablet Take 1 tablet by mouth once daily. Per [place] [facility] atorvastatin (LIPITOR) 80 mg tablet TAKE 1 [...] 1 capsule by mouth daily at bedtime. VITAMIN B COMPLEX (B COMPLEX 1 ORAL) Take by mouth. diphenhydrAMINE (BENADRYL) 25 mg capsule Take 25 mg by mouth every 6 hours as needed. No current facility-administered medications on file prior to visit. Social History Social History Tobacco Use Smoking status: Never Smokeless tobacco: Never Substance Use Topics Alcohol use: Yes Drug use: No Review of Symptoms REVIEW OF SYSTEMS No symptoms on review today such as swollen tongue, difficulty swallowing or difficulty breathing. EXAM: BP 126/74 Pulse 68 Resp 16 Wt 94.8 kg (209 lb) BMI (more content not included)...[facility]12-27-2024 Telephone encounter Note* Telephone Encounter - Pineda Styles RN - 07/19/2024 2:43 PM EST The patient has been identified by name and date of : Yes Caregiver verified no other encounters exist for this prescription request: Yes Caregiver confirmed with patient/requestor that no other refills are due, in the near future, with this provider at this time: Yes The last office visit in the department: 05/29/2024 Does the patient have a future office visit with this provider/department: 10/03/2024 Requested Prescriptions Pending Prescriptions Disp Refills allopurinol (ZYLOPRIM) 100 mg tablet 90 tablet 1 Sig: TAKE 1 TABLET BY MOUTH ONCE DAILY. FOR GOUT. sertraline (ZOLOFT) 100 mg tablet 90 tablet 1 Sig: Take one tablet by mouth daily sertraline (ZOLOFT) 100 mg tablet 30 tablet 0 Sig: Take one tablet by mouth daily allopurinol (ZYLOPRIM) 100 mg tablet 30 tablet 0 Sig: TAKE 1 TABLET BY MOUTH ONCE DAILY. FOR GOUT. Patient calls to report completely out of both medications. Needs 30 day supply to go to [facility] and 90 day supply to go to [facility]. Pineda Styles RN July 19, 2024 2:43 PM [facility]12-[facility] Miscellaneous Notes* Telephone Encounter - Pineda Styles RN - 07/19/2024 2:43 PM EST The patient has been identified by name and date of : Yes Caregiver verified no other encounters exist for this prescription request: Yes Caregiver confirmed with patient/requestor that no other refills are due, in the near future, with this provider at this time: Yes The last office visit in the department: 05/29/2024 Does the patient have a future office visit with this provider/department: 10/03/2024 Requested Prescriptions Pending Prescriptions Disp Refills allopurinol (ZYLOPRIM) 100 mg tablet 90 tablet 1 Sig: TAKE 1 TABLET BY MOUTH ONCE DAILY. FOR GOUT. sertraline (ZOLOFT) 100 mg tablet 90 tablet 1 Sig: Take one tablet by mouth daily sertraline (ZOLOFT) 100 mg tablet 30 tablet 0 Sig: Take one tablet by mouth daily allopurinol (ZYLOPRIM) 100 mg tablet 30 tablet 0 Sig: TAKE 1 TABLET BY MOUTH ONCE DAILY. FOR GOUT. Patient calls to report completely out of both medications. Needs 30 day supply to go to [facility] and 90 day supply to go to [facility]. Pineda Styles RN July 19, 2024 2:43 PM documented in this encounterM[facility]12-[facility]24 NoteHNO ID: [id number] Author: LUPILLO MOURA LPN Service: ? Author Type: LICENSED NURSE Type: Progress Notes Filed: 07/19/2024 07:31 Note Text: Scan on 07/18/2024 4:24 PM by Bing Salmeron PA-C: [facility] History of Present illness Narrative* Lupillo Moura LPN - 07/19/2024 7:31 AM EST Scan on 07/18/2024 4:24 PM by Bing Salmeron PA-C: Consultation - Emergency Medicine documented in this encounterMccull[facility]11-13-2024 Note* Addendum Note - Valeriano Beasley MD - 06/05/2024 9:08 AM ESTAddended by: VALERIANO BEASLEY on: 06/05/2024 09:08 AM Modules accepted: Orders [facility]11-13-[facility] Miscellaneous Notes* Addendum Note - Valeriano Beasley MD - 06/05/2024 9:08 AM ESTAddended by: VALERIANO BEASLEY on: 06/05/2024 09:08 AM Modules accepted: Orders documented in this encounterMccull[facility]11-13-2024 NoteHNO ID: [id number] Author: LUPILLO MOURA LPN Service: ? Author Type: LICENSED NURSE Type: Progress Notes Filed: 06/05/2024 07:36 Note Text: Scan on 06/04/2024 2:56 PM by Bing Salmeron PA-C: Consultation - GI [facility]11-13-2024 History of Present illness Narrative* Lupillo Moura LPN - 06/05/2024 7:36 AM EST Scan on 06/04/2024 2:56 PM by Bing Salmeron PA-C: Consultation - GI documented in this encounterMccull[facility]11-07-2024 NoteHNO ID: [id number] Author: MERRICK SU MA Service: ? Author Type: Gas Transfer Operator Type: Progress Notes Filed: 05/30/2024 13:55 Note Text: Scan on 05/30/2024 1:20 PM by Bing Salmeron PA-C: [facility]11-[facility] History of Present illness Narrative* Merrick Su MA - 05/30/2024 1:48 PM EST Scan on 05/30/2024 1:20 PM by Bing Salmeron PA-C: Consultation - Cardiology documented in this encounterMccull[facility]11-06-2024 Note* Addendum Note - Suzanna Dawson PA-C - 05/29/2024 1:34 PM ESTAddended by: SUZANNA BYERS on: 05/29/2024 01:34 PM Modules accepted: Level of Service [facility]11-06-[facility]24 Miscellaneous Notes* Addendum Note - Suzanna Dawson PA-C - 05/29/2024 1:34 PM ESTAddended by: SUZANNA BYERS on: 05/29/2024 01:34 PM Modules accepted: Level of Service documented in this encounterMcc[facility]11-06-2024 NoteHNO ID: [id number] Author: SUZANNA DAWSON PA-C Service: ? Author Type: Physician Net Web Developer Type: Progress Notes Filed: 05/29/2024 13:33 Note Text: Chief Complaint Patient presents with: Recheck: Blood pressure HPI Nazario Hutton is a 73 year old male who presents here today for recheck BP. Patient had low bp at last visit and had reports intermittent episodes of lightheadedness. We decreased amlodipine to just 5mg. Patient does feel slightly better. Not checking BP at home yet. Past medical history, appointments, medications, allergies reviewed. Previous Medical History PAST MEDICAL HISTORY Diagnosis Date Advance directive discussed with patient 04/18/2022 Discussed 03/2022 Alcohol abuse 09/14/2022 6 beers a day since passed in early 2021 Anxiety 12/08/2014 AVM (arteriovenous malformation) of colon 09/14/[address] Chacon BENIGN HYPERTENSION 03/04/2008 Coronary artery disease due to lipid rich plaque 12/06/[address] Edwards , cardio [place] Diverticulosis 09/05/2022 Elevated alkaline phosphatase level 09/03/2017 Elevated PSA 03/17/2021 Heart murmur, systolic 08/01/2018 High serum parathyroid hormone (PTH) 08/01/[address] elevation myocardial infarction (STEMI) 12/06/2021 Hyperuricemia 10/30/[address] 04/18/2022 DPA: Jae (son) Low serum vitamin B12 05/18/2023 Low vitamin D level 03/15/2021 Lumbosacral radiculopathy at L5 07/10/2023 Medicare annual wellness visit, subsequent 03/15/2021 Medicare Part B: Not able to find. 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 ezetimibe (ZETIA) 10 mg tablet Take 1 tablet by mouth once daily. isosorbide mononitrate ER (IMDUR) 30 mg 24 hr tablet Take 1 tablet by mouth once daily. Per [place] [facility] allopurinol (ZYLOPRIM) 100 mg tablet TAKE 1 TABLET BY MOUTH ONCE DAILY. FOR GOUT. sertraline (ZOLOFT) 100 mg tablet Take one tablet by mouth daily atorvastatin (LIPITOR) 80 mg tablet TAKE 1 [...] 1 capsule by mouth daily at bedtime. VITAMIN B COMPLEX (B COMPLEX 1 ORAL) Take by mouth. diphenhydrAMINE (BENADRYL) 25 mg capsule Take 25 mg by mouth every 6 hours as needed. Blood Pressure Monitor 1 Each once daily. No current facility-administered medications on file prior to visit. Social History Social History Tobacco Use Smoking status: Never Smokeless tobacco: Never Substance Use Topics Alcohol use: Yes Drug use: No Review of Symptoms REVIEW OF SYSTEMS See hpi EXAM: BP 120/56 (BP Site: Left Arm, BP Position: Sitting, BP Cuff Size: Regular Adult) Pulse 66 Temp 36.2 ?C (97.2 ?F) Resp 18 Wt 93 kg (205 lb) SpO2 95% BMI 30.54 kg/m? General Appearance: Well appearing, alert, in no acute distress, well-hydrated, well nourished.. Health Maintenance List Shingrix Vaccine(1 of 2) Never done DTaP,Tdap,Td Vaccine(2 - Td or Tdap) due on 03/04/2018 Advance Directive Discussion due on 07/24/2023 LDL Jovita (more content not included)...[facility]11-[facility] History of Present illness Narrative* Suzanna Dawson PA-C - 05/29/2024 1:00 PM EST Chief Complaint Patient presents with: Recheck: Blood pressure HPI Nazairo Hutton is a 73 year old male who presents here today for recheck BP. Patient had low bp at last visit and had reports intermittent episodes of lightheadedness. We decreased amlodipine to just 5mg. Patient does feel slightly better. Not checking BP at home yet. Past medical history, appointments, medications, allergies reviewed. Previous Medical History PAST MEDICAL HISTORY Diagnosis Date Advance directive discussed with patient 04/18/2022 Discussed 03/2022 Alcohol abuse 09/14/2022 6 beers a day since passed in early 2021 Anxiety 12/08/2014 AVM (arteriovenous malformation) of colon 09/14/[address] Chacon BENIGN HYPERTENSION 03/04/2008 Coronary artery disease due to lipid rich plaque 12/06/[address] Edwards , cardio [place] Diverticulosis 09/05/2022 Elevated alkaline phosphatase level 09/03/2017 Elevated PSA 03/17/2021 Heart murmur, systolic 08/01/2018 High serum parathyroid hormone (PTH) 08/01/[address] elevation myocardial infarction (STEMI) 12/06/2021 Hyperuricemia 10/30/[address] 04/18/2022 DPA: Jae (son) Low serum vitamin B12 05/18/2023 Low vitamin D level 03/15/2021 Lumbosacral radiculopathy at L5 07/10/2023 Medicare annual wellness visit, subsequent 03/15/2021 Medicare Part B: Not able to find. 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 ezetimibe (ZETIA) 10 mg tablet Take 1 tablet by mouth once daily. isosorbide mononitrate ER (IMDUR) 30 mg 24 hr tablet Take 1 tablet by mouth once daily. Per [facility] all[facility]urin[facility] (ZYLOPRIM) 100 mg tablet TAKE 1 TABLET BY MOUTH ONCE DAILY. FOR GOUT. sertraline (ZOLOFT) 100 mg tablet Take one tablet by mouth daily atorvastatin (LIPITOR) 80 mg tablet TAKE 1 [...] 1 capsule by mouth daily at bedtime. VITAMIN B COMPLEX (B COMPLEX 1 ORAL) Take by mouth. diphenhydrAMINE (BENADRYL) 25 mg capsule Take 25 mg by mouth every 6 hours as needed. Blood Pressure Monitor 1 Each once daily. No current facility-administered medications on file prior to visit. Social History Social History Tobacco Use Smoking status: Never Smokeless tobacco: Never Substance Use Topics Alcohol use: Yes Drug use: No Review of Symptoms REVIEW OF SYSTEMS See hpi EXAM: BP 120/56 (BP Site: Left Arm, BP Position: Sitting, BP Cuff Size: Regular Adult) Pulse 66 Temp 36.2 C (97.2 F) Resp 18 Wt 93 kg (205 lb) SpO2 95% BMI 30.54 kg/m General Appearance: Well appearing, alert, in no acute distress, well-hydrated, well nourished.. Health Maintenance List Shingrix Vaccine(1 of 2) Never done DTaP,Tdap,Td Vaccine(2 - Td or Tdap) due on 03/04/2018 Advance Directive Discussion due on 07/24/2023 LDL Cholesterol due on 04/04/2025 Annual PCP Team Chronic Disease Visit due on 05/01/2025 BP Controlled (<130/80) due on 05/01/2025 Colorectal Cancer Screening due on 09/05/2025 RSV Vaccine(1 - 1-dose 75+ series) due on 2025 Diabetes Screening due on 04/04/2027 Lipid Screening due on 04/04/2029 Influenza Vaccine Completed Covid-19 Vaccine Completed Pneumococcal Vaccine: 65+ Completed Hepatitis C Screening Discontinued Data reviewed ASSESSMENT/PLAN: 1. Essential hypertension, benign - ICD9: 401.1, ICD10: I10 - Controlled - Continue current medications - Recommend home blood pressure monitoring, to bring results to next visit - Encouraged sodium restriction, DASH or Mediterranean diet - Recommend regular aerobic exercise Suzanna Dawson PA-C documented in this encounterM[facility]11-05-2024 NoteHNO ID: [id number] Author: LUPILLO MOURA LPN Service: ? Author Type: LICENSED NURSE Type: Progress Notes Filed: 05/28/2024 08:48 Note Text: Scan on 05/27/2024 4:25 PM by ProviderBing PA-C: Consultation - [facility]11-05-20[facility] History of Present illness Narrative* Lupillo Moura LPN - 05/28/2024 8:48 AM EST Scan on 05/27/2024 4:25 PM by Bing Salmeron PA-C: Consultation - documented in this encounterMcc[facility]10-29-2024 Telephone encounter Note * Telephone Encounter - Heron Enriquez LPN - 05/21/2024 2:40 PM EDT Pt returned call to office. Notified of results. He verbalized understanding. Pt also mentions he has an appt on May [address] Barron and Jun [address] Blanco. Heron Enriquez LPN [facility]10-29-[facility] Miscellaneous Notes* Telephone Encounter - Heron Enriquez LPN - 05/21/2024 2:40 PM EDT Pt returned call to office. Notified of results. He verbalized understanding. Pt also mentions he has an appt on May [address] Barron and Jun [address] Blanco. Heron Enriquez LPN * Telephone Encounter - Flakita Pastor MA - 05/21/2024 9:21 AM EDT Additional message left for pt to call back. Flakita Pastor MA * Telephone Encounter - Lupillo Moura LPN - 05/20/2024 9:10 AM EDT Left message for pt to contact office. Lupillo Moura LPN * Telephone Encounter - Suzanna Dawson PA-C - 05/20/2024 7:53 AM EDT Negative for hepatitis. documented in this encounterM[facility]10-[facility] Telephone encounter Note * Telephone Encounter - Flakita Pastor MA - 05/21/2024 9:21 AM EDT Additional message left for pt to call back. Flakita Pastor MA [facility]10-28-2024 Telephone encounter Note* Telephone Encounter - Lupillo Moura LPN - 05/20/2024 9:51 AM EDT Pt did read My Chart Message. Will close this encounter. Lupillo Moura LPN [facility]10-28-2024 Miscellaneous Notes* Telephone Encounter - Lupillo Moura LPN - 05/20/2024 9:51 AM EDT Pt did read My Chart Message. Will close this encounter. Lupillo Moura LPN * Telephone Encounter - Ganesh White MA - 05/20/2024 9:41 AM EDT Left additional message for patient to contact office. Ganesh White MA * Telephone Encounter - Lupillo Moura LPN - 05/17/2024 8:53 AM EDT Left additional message for pt to contact office. Lupillo Moura LPN * Telephone Encounter - Lupillo Moura LPN - 05/16/2024 11:25 AM EDT Also sent pt a [facility] with phone numbers. Lupillo Moura LPN * Telephone Encounter - Lupillo Moura LPN - 05/15/2024 1:16 PM EDT Left message for pt to contact office for phone numbers. Dr Chacon [phone] Dr Barron [phone]. Please have pt contact them to schedule if he does not hear from their offices. All info has been faxed to Dr Chacon and Dr Barron as per below. Lupillo Moura LPN * Telephone Encounter - Suzanna Dawson PA-C - 05/15/2024 12:46 PM EDT Consult placed. Please give patient phone numbers to schedule. * Telephone Encounter - Pineda Styles RN - 05/15/2024 12:07 PM EDT Patient returns call and results and provider message reviewed. Patient would like to stay local with Dr. Chacon as he has seen him in the past for other issues. Also, reports that he has not seen Dr. Barron. Will refax referral from September per patient request. Pineda Styles, OLYA * Telephone Encounter - Lupillo Moura LPN - 05/15/2024 9:18 AM EDT Left message for pt to contact office. 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 We need to get him in with a liver specialist. Does he wish to stay in [place] with gotham at [facility]. Or does he prefer to stay with [facility]? I also need to do a hepatitis panel on him. He had declined hep C screening in past but given this finding, I think we need to check this. Also did he ever see dr. Barron (urology) for his kidney cysts/lesion?? Suzanna Dawson PA-C * Telephone Encounter - Lupillo Moura LPN - 05/14/2024 2:45 PM EDT Received results of pt's US ordered by Suzanna mosher at [facility]. Lupillo Moura LPN Scan on 05/14/2024 2:31 PM by Provider, ELIZABETH Smart: Ultrasound documented in this encounterM[facility] Telephone encounter Note * Telephone Encounter - Ganesh White MA - 05/20/2024 9:41 AM EDT Left additional message for patient to contact office. Ganesh White MA [facility]10-28-2024 Telephone encounter Note* Telephone Encounter - Lupillo Moura LPN - 05/20/2024 9:10 AM EDT Left message for pt to contact office. Lupillo Moura LPN [facility]10-28-2024 Telephone encounter Note* Telephone Encounter - Suzanna Dawson PA-C - 05/20/2024 7:53 AM EDT Negative for hepatitis. [facility]10-25-2024 Telephone encounter Note* Telephone Encounter - Lupillo Moura LPN - 05/17/2024 8:53 AM EDT Left additional message for pt to contact office. Lupillo Moura LPN [facility]10-24-2024 Telephone encounter Note* Telephone Encounter - Lupillo Moura LPN - 05/16/2024 11:25 AM EDT Also sent pt a [facility] with phone numbers. Lupillo Moura LPN [facility]10-23-2024 Telephone encounter Note* Telephone Encounter - Lupillo Moura LPN - 05/15/2024 1:16 PM EDT Left message for pt to contact office for phone numbers. Dr Chacon [phone] Dr Barron [phone]. Please have pt contact them to schedule if he does not hear from their offices. All info has been faxed to Dr Chacon and Dr Barron as per below. Lupillo Moura LPN [facility]10-23-2024 Telephone encounter Note* Telephone Encounter - Suzanna Dawson PA-C - 05/15/2024 12:46 PM EDT Consult placed. Please give patient phone numbers to schedule. [facility]10-23-2024 Telephone encounter Note* Telephone Encounter - Pineda Styles RN - 05/15/2024 12:07 PM EDT Patient returns call and results and provider message reviewed. Patient would like to stay local with Dr. Chacon as he has seen him in the past for other issues. Also, reports that he has not seen Dr. Barron. Will refax referral from September per patient request. Pineda Styles RN [facility]10-23-2024 Telephone encounter Note* Telephone Encounter - Lupillo Moura LPN - 05/15/2024 9:18 AM EDT Left message for pt to contact office. 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 We need to get him in with a liver specialist. Does he wish to stay in [place] with gotham at [facility]. Or does he prefer to stay with [facility]? I also need to do a hepatitis panel on him. He had declined hep C screening in past but given this finding, I think we need to check this. Also did he ever see dr. Barron (urology) for his kidney cysts/lesion?? Suzanna Dawson PA-C [facility]10-22-2024 Telephone encounter Note* Telephone Encounter - Lupillo Moura LPN - 05/14/2024 2:45 PM EDT Received results of pt's US ordered by Suzanna mosher at [facility]. Lupillo Moura LPN Scan on 05/14/2024 2:31 PM by Provider, ELIZABETH Smart: Ultrasound [facility]10-21-2024 Telephone encounter Note* Telephone Encounter - Kirsten Marc RN - 05/13/2024 3:14 PM EDT Patient calling with an order related question. Information provided. Kirsten Marc RN [facility]10-21-2024 Miscellaneous Notes* Telephone Encounter - Kirsten Marc RN - 05/13/2024 3:14 PM EDT Patient calling with an order related question. Information provided. Kirsten Marc RN documented in this encounterM[facility]10-[facility] Instructions* Patient Instructions* Suzanna Dawson PA-C - 05/01/2024 1:44 PM EDT Screening schedule The following prevention plan is recommended: Shingrix Vaccine(1 of 2) Never done DTaP,Tdap,Td Vaccine(2 - Td or Tdap) due on 03/04/2018 Advance Directive Discussion due on 07/24/2023 Influenza Vaccine(1) due on 03/24/2024 Covid-19 Vaccine( season) due on 03/24/2024 WHAT YOU CAN DO TO PREVENT FALLS Many falls can be prevented. By making some changes, you can lower your chances of falling. Four things YOU can do to prevent falls for you* and your caregiver 1. Begin a regular exercise program Exercise is one of the most important ways to lower your chances of falling. It makes you stronger and helps you feel better. Exercises that improve balance and coordination (like Shiv Chi) are the most helpful. Lack of exercise leads to weakness and increases your chances of falling. Ask your doctor or health care provider about the best type of exercise program for you. 2. Have your health care provider review your medicines Have your doctor or pharmacist review all the medicines you take, even [id number] medicines. As you get older, the way medicines work in your body can change. Some medicines, or combinations of medicines, can make you sleepy or dizzy andcan cause you to fall. 3. Have your vision checked Have your eyes checked by an eye doctor at least once a year. You may be wearing the wrong glasses or have a condition like glaucoma or cataracts that limits your vision. Poor vision can increase your chances of falling. 4. Make your home safer About half of all falls happen at home. To make your home safer: Remove things you can trip over (like papers, books, clothes, and shoes) from stairs and places where you walk. Remove small throw rugs or use double-sided tape to keep the rugs from slipping. Keep items you use often in cabinets you can reach easily without using a step stool. Have grab bars put in next to your toilet and in the tub or shower. Use non-slip mats in the bathtub and on shower floors. Improve the lighting in your home. As you get older, you need brighter lights to see well. Hang light-weight curtains or shades to reduce glare. Have handrails and lights put in on all staircases. Wear shoes both inside and outside the house. Avoid going barefoot or wearing slippers. For more information, contact: Centers for Disease Control and Prevention www.cdc.gov/injury * This information may not apply if you have certain medical conditions. documented in this encounterMcc[facility]10-[facility]-2024 NoteHNO ID: [id number] Author: SUZANNA DAWSON PA-C Service: ? Author Type: Physician Net Web Developer Type: Progress Notes Filed: 05/01/2024 14:25 Note Text: Nazario Hutton is a 73 year old male here for a Medicare wellness visit. 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 Medical/Family history review Reviewed and updated problem list, medical/surgical/family/social history, medications, and allergies. Opioid use review Opioid Medications (last 90 days) No data to display Anxiety/Depression screening PHQ-2 Score: 1 (Lower risk for depression) Recommendation: no further intervention at this time Cognitive screening Mini Cog Score: 5 Cognitive screening reviewed and No further action needed (score 3-5). Functional Observation Was the patient's Timed Up AND Go test unsteady or >= 12 seconds? No Advance Care Planning Surrogate decision maker and/or advance care plan documented Measurements BP 100/62 (BP Site: Left Arm, BP Position: Sitting, BP Cuff Size: Large Adult) Pulse 77 Temp 36.4 ?C (97.5 ?F) Resp 18 Ht 174.5 cm (5' 8.7) Wt 89.4 kg (197 lb) SpO2 96% BMI 29.35 kg/m? Vision Screening: Follows with optometry/ophthalmology Assessment/Plan Medicare annual wellness visit, subsequent (Z00.00) - Counseled on healthy diet and regular exercise - Fall avoidance information provided - Personalized prevention plan provided - See below Chief Complaint Patient presents with: Medicare Wellness Exam HPI Nazario Hutton is a 73 year old male who presents here today for extensive exam. Patient with hx of CAD, HTN, hx of STEMI, hlp, b12 def, vit d def, depression/anxiety, gout, alcohol abuse, and those as below. Patient doesn't have concerns today. Past medical history, appointments, medications, allergies reviewed. Previous Medical History PAST MEDICAL HISTORY Diagnosis Date Advance directive discussed with patient 04/18/2022 Discussed 03/2022 Alcohol abuse 09/14/2022 6 beers a day since passed in early 2021 Anxiety 12/08/2014 AVM (arteriovenous malformation) of colon 09/14/[address] Chacon BENIGN HYPERTENSION 03/04/2008 Coronary artery disease due to lipid rich plaque 12/06/[address] Edwards , cardio [place] Diverticulosis 09/05/2022 Elevated alkaline phosphatase level 09/03/2017 Elevated PSA 03/17/2021 Heart murmur, systolic 08/01/2018 High serum parathyroid hormone (PTH) 08/01/[address] elevation myocardial infarction (STEMI) 12/06/2021 Hyperuricemia 10/30/[address] 04/18/2022 DPA: Jae (son) Low serum vitamin B12 05/18/2023 Low vitamin D level 03/15/2021 Lumbosacral radiculopathy at L5 07/10/2023 Medicare annual wellness visit, subsequent 03/15/2021 Medicare Part B: Not able to find. 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 isosorbide mononitrate ER (IMDUR) 30 mg 24 hr tablet Take 1 tablet by mouth once daily. Per [facility] allopurinol (ZYLOPRIM) 100 mg tablet TAKE 1 TABLET BY MOUT (more content not included)...[facility]10-09-2024 History of Present illness Narrative* Suzanna Dawson PA-C - 05/01/2024 1:15 PM EDT Images from the original note were not included. Nazario Hutton is a 73 year old male here for a Medicare wellness visit. 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 Medical/Family history review Reviewed and updated problem list, medical/surgical/family/social history, medications, and allergies. Opioid use review Opioid Medications (last 90 days) No data to display Anxiety/Depression screening PHQ-2 Score: 1 (Lower risk for depression) Recommendation: no further intervention at this time Cognitive screening Mini Cog Score: 5 Cognitive screening reviewed and No further action needed (score 3-5). Functional Observation Was the patient's Timed Up & Go test unsteady or >= 12 seconds? No Advance Care Planning Surrogate decision maker and/or advance care plan documented Measurements BP 100/62 (BP Site: Left Arm, BP Position: Sitting, BP Cuff Size: Large Adult) Pulse 77 Temp 36.4 C (97.5 F) Resp 18 Ht 174.5 cm (5' 8.7) Wt 89.4 kg (197 lb) SpO2 96% BMI 29.35 kg/m Vision Screening: Follows with optometry/ophthalmology Assessment/Plan Medicare annual wellness visit, subsequent (Z00.00) - Counseled on healthy diet and regular exercise - Fall avoidance information provided - Personalized prevention plan provided - See below Chief Complaint Patient presents with: Medicare Wellness Exam HPI Nazario Hutton is a 73 year old male who presents here today for extensive exam. Patient with hx of CAD, HTN, hx of STEMI, hlp, b12 def, vit d def, depression/anxiety, gout, alcohol abuse, and those as below. Patient doesn't have concerns today. Past medical history, appointments, medications, allergies reviewed. Previous Medical History PAST MEDICAL HISTORY Diagnosis Date Advance directive discussed with patient 04/18/2022 Discussed 03/2022 Alcohol abuse 09/14/2022 6 beers a day since passed in early 2021 Anxiety 12/08/2014 AVM (arteriovenous malformation) of colon 09/14/[address] Chacon BENIGN HYPERTENSION 03/04/2008 Coronary artery disease due to lipid rich plaque 12/06/[address] Edwards , cardio [place] Diverticulosis 09/05/2022 Elevated alkaline phosphatase level 09/03/2017 Elevated PSA 03/17/2021 Heart murmur, systolic 08/01/2018 High serum parathyroid hormone (PTH) 08/01/[address] elevation myocardial infarction (STEMI) 12/06/2021 Hyperuricemia 10/30/[address] 04/18/2022 DPA: Jae (son) Low serum vitamin B12 05/18/2023 Low vitamin D level 03/15/2021 Lumbosacral radiculopathy at L5 07/10/2023 Medicare annual wellness visit, subsequent 03/15/2021 Medicare Part B: Not able to find. 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 isosorbide mononitrate ER (IMDUR) 30 mg 24 hr tablet Take 1 tablet by mouth once daily. [facility]) 100 mg tablet TAKE 1 TABLET BY MOUTH ONCE DAILY. FOR GOUT. sertraline (ZOLOFT) 100 mg tablet Take one tablet by mouth daily ezetimibe (ZETIA) 10 mg tablet Take [...] 1 capsule by mouth daily at bedtime. VITAMIN B COMPLEX (B COMPLEX 1 ORAL) [...] leg swelling, hypertension, CHF or palpitations GI: has trouble swallowing. No nausea, vomiting, or diarrhea : No history of dysuria, frequency or incontinence MUSCULOSKELETAL: Negative for joint pain or swelling, back pain or muscle pain SKIN: Negative for lesions, rash, and itching PSYCH: Negative for sleep disturbance, mood disorder and recent psychosocial stressors HEMATOLOGY/LYMPHOLOGY: Negative for prolonged bleeding, bruising easily or swollen nodes ENDOCRINE: Negative for cold or heat intolerance, polyuria, polydipsia and goiter NEURO: No history of headaches, syncope, paralysis, seizures or tremors EXAM: BP 100/62 (BP Site: Left Arm, BP Position: Sitting, BP Cuff Size: Large Adult) Pulse 77 Temp 36.4 C (97.5 F) Resp 18 Ht 174.5 cm (5' 8.7) Wt 89.4 kg (197 lb) SpO2 96% BMI 29.35 kg/m General Appearance: Well appearing, alert, in no acute distress, well-hydrated, well nourished.. Skin: Skin color, texture, turgor normal, no suspicious rashes or lesions. Head: Normocephalic, no masses, lesions, tenderness or abnormalities. Eyes: Anicteric sclera. Pupils are equally round and reactive to light. Extraocular movements are intact. . Ears: External ears normal, canals clear, TMs pearly nguyen. Nose/Sinuses: Nares normal, septum midline, mucosa normal, [...] soft, non-tender. Bowel sounds normal. No masses, organomegaly, obese abdomen. Extremities: No deformities, edema, skin discoloration, clubbing or cyanosis. Good capillary refill. . Peripheral Pulses: Normal. Neurologic: Gait normal. Reflexes normal and symmetric. Sensation grossly intact.. Health Maintenance List Shingrix Vaccine(1 of 2) Never done DTaP,Tdap,Td Vaccine(2 - Td or Tdap) due on 03/04/2018 Advance Directive Discussion due on 07/24/2023 Influenza Vaccine(1) due on 03/24/2024 Covid-19 Vaccine(3 - season) due on 03/24/2024 LDL Cholesterol due on 04/04/2025 Annual PCP Team Chronic Disease Visit due on 05/01/2025 BP Controlled (<130/80) due on 05/01/2025 Colorectal Cancer Screening due on 09/05/2025 RSV Vaccine(1 - 1-dose 75+ series) due on 2025 Diabetes Screening due on 04/04/2027 Lipid Screening due on 04/04/2029 Pneumococcal Vaccine: 65+ Completed Hepatitis C Screening Discontinued Data reviewed Latest Ref Rng 04/04/2024 WBC 3.70 - 11.00 k/uL 8.41 RBC 4.20 - 6.00 m/uL 3.67 (L) Hemoglobin 13.0 - 17.0 g/dL 12.8 (L) Hematocrit 39.0 - 51.0 % 39.0 MCV 80.0 - 100.0 fL 106.3 (H) MCH 26.0 - 34.0 pg 34.9 (H) MCHC 30.5 - 36.0 g/dL 32.8 RDW-CV 11.5 - 15.0 % 13.1 Platelet Count 150 - 400 k/uL 193 MPV 9.0 - 12.7 fL 10.5 Neut% % 73.4 Abs Neut (ANC) 1.45 - 7.50 k/uL 6.17 Lymph% % 7.6 Abs Lymph 1.00 - 4.00 k/uL 0.64 (L) [place]% % 11.4 Abs [place] <0.87 k/uL 0.96 (H) Eosin% % 5.1 Abs Eosin <0.46 k/uL 0.43 Baso% % 0.7 Abs Baso <0.11 k/uL 0.06 Immature Gran % % 1.8 IMMATURE GRANS (ABS) <0.10 k/uL 0.15 (H) NRBC /100 WBC 0.0 Absolute nRBC <0.01 k/uL <0.01 DTYPE Auto Protein, Total 6.3 - 8.0 g/dL 7.1 Albumin 3.9 - 4.9 g/dL 3.8 (L) Calcium 8.5 - 10.2 mg/dL 9.7 Bilirubin, Total 0.2 - 1.3 mg/dL 0.4 Alkaline Phosphatase 38 - 113 U/L 110 AST 14 - 40 U/L 47 (H) ALT 10 - 54 U/L 38 Glucose 74 - 99 mg/dL 94 BUN 9 - 24 mg/dL 15 Creatinine 0.73 - 1.22 mg/dL 0.74 Sodium 136 - 144 mmol/L 142 Potassium 3.7 - 5.1 mmol/L 4.6 Chloride 98 - 107 mmol/L 109 (H) CO2 22 - 30 mmol/L 22 Anion Gap 8 - 15 mmol/L 11 eGFR >=60 mL/min/1.73m 96 Total Cholesterol, Nonfasting <200 mg/dL 146 Triglycerides, Nonfasting <150 mg/dL 83 HDL Cholesterol, Nonfasting >39 mg/dL 55 LDL Cholesterol, Nonfasting <100 mg/dL 74 Non HDL Cholesterol, Nonfasting <130 mg/dL 91 VLDL Cholesterol, Nonfasting <30 mg/dL 17 Total Chol/HDL Ratio, Nonfasting <5.10 mg/dL 2.65 LDL/HDL Ratio, Nonfasting <2.54 mg/dL 1.35 PSA <2.60 ng/mL 5.42 (H) PSA, Percent Free % 24 Uric Acid 4.0 - 8.1 mg/dL 5.3 Vitamin D 25 Hydroxy 31.0 - 80.0 ng/mL 27.1 (L) Vitamin B12 232 - 1,245 pg/mL 905 FIB-4 Calculation: 2.88 at 04/04/2024 12:21 PM Calculated from: SGOT/AST: 47 U/L at 04/04/2024 12:21 PM SGPT/ALT: 38 U/L at 04/04/2024 12:21 PM Platelets: 193 k/uL at 04/04/2024 12:21 PM Age: 73 years ASSESSMENT/PLAN: 1. Medicare annual wellness visit, subsequent - ICD9: V70.0, ICD10: Z00.00 (primary diagnosis) - Counseled on healthy diet and regular exercise 2. Encounter for immunization - ICD9: V03.89, ICD10: Z23 - INFLUENZA VACCINE, PRSV FREE, AGE 65+ YR, HIGH DOSE, TRIVALENT (FLUZONE HIGH-DOSE) - [employer]-Affirm COVID-19 VACCINE AGE 12+ YR (COMIRNATY) 3. Essential hypertension, benign - ICD9: 401.1, ICD10: I10 BP slightly low. Patient reports some lightheadedness and balance issues Will decrease norvasc to 5mg Recheck in 1 month. - AMLODIPINE 5 MG TABLET - BLOOD PRESSURE MONITOR KIT - AMLODIPINE 5 MG TABLET 4. Advance directive discussed with patient - ICD9: V65.49, ICD10: Z71.89 Patient to bring copy 5. Living will in place - ICD9: V49.89, ICD10: Z78.9 6. 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 Valvular heart disease - ICD9: 424.90, ICD10: I38 Cont with cardio 8. Coronary artery disease due to lipid rich plaque - ICD9: 414.00, 414.3, ICD10: I25.10, I25.83 Cont with cardio 9. Heart murmur, systolic - ICD9: 785.2, ICD10: R01.1 Cont with cardio 10. Mixed hyperlipidemia - ICD9: 272.2, ICD10: E78.2 - Controlled - Continue current medications - Counseled on healthy diet and regular exercise 11. Low vitamin D level - ICD9: 790.6, ICD10: R79.89 Patient to start taking his vit d daily again 12. Low serum vitamin B12 - ICD9: 266.2, ICD10: E53.8 Cont b12 supplement 13. Gout without tophus - ICD9: 274.9, ICD10: M10.9 No new issues 14. Overweight with body mass index (BMI) of 29 to 29.9 in adult - ICD9: 278.02, V85.25, ICD10: E66.3, Z68.29 Visceral obesity 15. Elevated LFTs - ICD9: 790.6, ICD10: R79.89 Fib 4 elevated Will get US with elastrography at [facility]. 16. Alcohol abuse - ICD9: 305.00, ICD10: F10.10 Advised to decrease Avoid binge Suzanna Dawson PA-C I spent a total of 45 minutes on the date of the service which included preparing to see the patient, [id number] patient care, completing clinical documentation, obtaining and/or reviewing separately obtained history, performing a medically appropriate examination, counseling and educating the pat ient/family/caregiver, and ordering medications, tests, or procedures. documented in this encounterM[facility]10-[facility] Telephone encounter Note * Telephone Encounter - Alexia Waggoner LPN - 05/01/2024 8:29 AM EDT Lisa with Dr. Vargas's office (cardiology) called for recent lipid lab work. Pt has an apt. Pt was identified with name and date of . FAX: [phone]. Done. Alexia Waggoner LPN [facility]10-09-2024 Miscellaneous Notes* Telephone Encounter - Alexia Waggoner LPN - 05/01/2024 8:29 AM EDT Lisa with Dr. Vargas's office (cardiology) called for recent lipid lab work. Pt has an apt. Pt was identified with name and date of . FAX: [phone]. Done. Alexia Waggoner LPN documented in this encounterMccull[facility]09-[facility]24 NoteHNO ID: [id number] Author: GANESH WHITE MA Service: ? Author Type: Gas Transfer Operator Type: Progress Notes Filed: 04/17/2024 18:44 Note Text: Scan on 04/15/2024 12:56 PM by ProviderBing PA-C: Consultation - Cardiology Ganesh White [facility]09-25-2024 History of Present illness Narrative* Ganesh White MA - 04/17/2024 6:44 PM EDT Scan on 04/15/2024 12:56 PM by ProviderBing PA-C: Consultation - Cardiology Ganesh White MA documented in this encounterMccull[facility]09-12-2024 NoteHNO ID: [id number] Author: NI SAUCEDA APRN.PONCHO Service: ? Author Type: Nurse Practitioner Type: Progress Notes Filed: 04/04/2024 11:56 Note Text: Chief Complaint Patient presents with: ER F/U HPI Nazario Hutton is a 73 year old male who presents here today for Above Complaints.. Patient presents for ER follow up. Patient seen in [facility] for angioedema. Losartan d/c'd by Dr. Beasley after notification of ER visit. Angioedema has resolved. Past medical history, appointments, medications, allergies reviewed. Previous Medical History PAST MEDICAL HISTORY 04/18/2022: Advance directive discussed with patient Comment: Discussed 03/202209/14/2022: Alcohol abuse Comment: 6 beers a day since passed in early 202112/08/2014: Anxiety 09/14/2022: AVM (arteriovenous malformation) of colon Comment: Seeing Dr. Chacon 03/04/2008: BENIGN HYPERTENSION 12/06/2021: Coronary artery disease due to lipid rich plaque Comment: seeing Dr. Edwards , [facility] [place] 09/05/2022: Diverticulosis 09/03/2017: Elevated alkaline phosphatase level 03/17/2021: Elevated PSA 08/01/2018: Heart murmur, systolic 08/01/2018: High serum parathyroid hormone (PTH) 12/06/2021: History of ST elevation myocardial infarction (STEMI) 10/30/2014: Hyperuricemia 04/18/2022: Living will in place Comment: DPA: Jae (son) 05/18/2023: Low serum vitamin B12 03/15/2021: Low vitamin D level 07/10/2023: Lumbosacral radiculopathy at L5 03/15/2021: Medicare annual wellness visit, subsequent Comment: Medicare Part B: Not able to find. 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 Floyd, repeat 10 yrs No date: REMV CATARACT EXTRACAP,INSERT LENS; Bilateral Comment: 07/2022 Family History FAMILY HISTORY Problem Relation [...] Family History Patient Allergies ALLERGIES Allergen Reactions Hctz [Hydrochloroth* Unknown rash Current Medications Current Outpatient Medications on File Prior to Visit Medication Sig isosorbide mononitrate ER (IMDUR) 30 mg 24 hr tablet Take 1 tablet by mouth once daily. Per [facility] allopurinol (ZYLOPRIM) 100 mg tablet TAKE 1 [...] FOR HOME USE. DX: LABILE BLOOD PRESSURE (Patient not taking: Reported on 01/01/2024) VITAMIN B COMPLEX (B COMPLEX 1 ORAL) Take by mouth. diphenhydrAMINE (BENADRYL) 25 mg capsule Take 25 mg by mouth every 6 hours as needed. No current facility-administered medications on file prior to visit. Social History Social History Tobacco Use Smoking status: Never Smokeless tobacco: Never Substance Use Topics Alcohol use: Yes Drug use: No Review of Symptoms REVIEW OF SYSTEMS SEE HPI EXAM: BP 155/84 Pulse (!) 58 Resp 14 Wt 92.5 kg (204 lb) BMI 31.02 kg/m? General Appearance: Well appearing, alert, in no acute distress, well-hydrated, well nourished. Lungs: Lungs clear to auscultation. No wheezing, rhonchi, rales.. (more content not included)...[facility]09-12-2024 History of Present illness Narrative* Ni Sauceda APRN.COMMERCIAL REVIEW APPRAISER - 04/04/2024 11:48 AM EDT Chief Complaint Patient presents with: ER F/U HPI Nazario Hutton is a 73 year old male who presents here today for Above Complaints.. Patient presents for ER follow up. Patient seen in [facility] for angioedema. Losartan d/c'd by Dr. Beasleyafter notification of ER visit. Angioedema has resolved. Past medical history, appointments, medications, allergies reviewed. Previous Medical History PAST MEDICAL HISTORY 04/18/2022: Advance directive discussed with patient Comment: Discussed 03/202209/14/2022: Alcohol abuse Comment: 6 beers a day since passed in early 202112/08/2014: Anxiety 09/14/2022: AVM (arteriovenous malformation) of colon Comment: Seeing Dr. Chacon 03/04/2008: BENIGN HYPERTENSION 12/06/2021: Coronary artery disease due to lipid rich plaque Comment: seeing Dr. Edwards , [facility] [place] 09/05/2022: Diverticulosis 09/03/2017: Elevated alkaline phosphatase level 03/17/2021: Elevated PSA 08/01/2018: Heart murmur, systolic 08/01/2018: High serum parathyroid hormone (PTH) 12/06/2021: History of ST elevation myocardial infarction (STEMI) 10/30/2014: Hyperuricemia 04/18/2022: Living will in place Comment: DPA: Jae (son) 05/18/2023: Low serum vitamin B12 03/15/2021: Low vitamin D level 07/10/2023: Lumbosacral radiculopathy at L5 03/15/2021: Medicare annual wellness visit, subsequent Comment: Medicare Part B: Not able to find. 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 Floyd, repeat 10 yrs No date: REMV CATARACT EXTRACAP,INSERT LENS; Bilateral Comment: 07/2022 Family History FAMILY HISTORY Problem Relation [...] Family History Patient Allergies ALLERGIES Allergen Reactions Hctz [Hydrochloroth* Unknown rash Current Medications Current Outpatient Medications on File Prior to Visit Medication Sig isosorbide mononitrate ER (IMDUR) 30 mg 24 hr tablet Take 1 tablet by mouth once daily. [facility] 100 mg tablet TAKE 1 [...] FOR HOME USE. DX: LABILE BLOOD PRESSURE (Patientnot taking: Reported on 01/01/2024) VITAMIN B COMPLEX (B COMPLEX 1 ORAL) Take by mouth. diphenhydrAMINE (BENADRYL) 25 mg capsule Take 25 mg by mouth every 6 hours as needed. No current facility-administered medications on file prior to visit. Social History Social History Tobacco Use Smoking status: Never Smokeless tobacco: Never Substance Use Topics Alcohol use: Yes Drug use: No Review of Symptoms REVIEW OF SYSTEMS SEE HPI EXAM: BP 155/84 Pulse (!) 58 Resp 14 Wt 92.5 kg (204 lb) BMI 31.02 kg/m General Appearance: Well appearing, alert, in no acute distress, well-hydrated, well nourished. Lungs: Lungs clear to auscultation. No wheezing, rhonchi, rales.. Heart: RRR without murmur, gallop, or rubs. No ectopy. Health Maintenance List RSV Vaccine(1 - 1-dose 60+ series) Never done BP Controlled (<130/80) due on 03/15/2022 Advance Directive Discussion due on 07/24/2023 Covid-19 Vaccine(3 - season) due on 03/24/2024 Influenza Vaccine(1) due on 03/24/2024 DTaP,Tdap,Td Vaccine(2 - Td or Tdap) due on 04/20/2024 Shingrix Vaccine(1 of 2) due on 04/20/2024 LDL Cholesterol due on 10/16/2024 Annual PCP Team Chronic Disease Visit due on 10/18/2024 Colorectal Cancer Screening due on 09/05/2025 Diabetes Screening due on 10/16/2026 Lipid Screening due on 10/16/2028 Pneumococcal Vaccine: 65+ Completed Hepatitis C Screening Discontinued ASSESSMENT/PLAN: 1. Essential hypertension, benign - ICD9: 401.1, ICD10: I10 - Uncontrolled - Start amlodipine, stop losartan - Recommend home blood pressure monitoring, to bring results to next visit - Encouraged sodium restriction, DASH or Mediterranean diet - Recommend regular aerobic exercise - AMLODIPINE 10 MG TABLET Ni Sauceda APRN.COMMERCIAL REVIEW APPRAISER documented in this encounterMccull[facility]09-09-2024 Telephone encounter Note * Telephone Encounter - Pineda Styles RN - 04/01/2024 3:35 PM EDT Patient returns call and provider message below reviewed. Scheduled ER appt for 04/04/2024. Pineda Styles RN [facility]09-09-2024 Miscellaneous Notes* Telephone Encounter - Pineda Styles RN - 04/01/2024 3:35 PM EDT Patient returns call and provider message below reviewed. Scheduled ER appt for 04/04/2024. Pineda Styles RN * Telephone Encounter - Rupal Chinchilla MA - 04/01/2024 2:54 PM EDT Unable to reach patient. Left VM to return call to office. Please read below and advise & assist patient with scheduling ER F/U with PCP team. Rupal Chinchilla MA * Telephone Encounter - Ganesh White MA - 04/01/2024 2:28 PM EDT Patient was in ER for allergic reaction. Dr. Beasley message. Advise patient to stop the losartan. Though it is rare it can cause angio edema. Needs f/u in 3-5 days. Please assist patient for follow up with PCP/team. /Ganesh White MA documented in this encounterMccull[facility]09-09-2024 Telephone encounter Note * Telephone Encounter - Rupal Chinchilla MA - 04/01/2024 2:54 PM EDT Unable to reach patient. Left VM to return call to office. Please read below and advise & assist patient with scheduling ER F/U with PCP team. Rupal Chinchilla MA [facility]09-09-2024 Telephone encounter Note* Telephone Encounter - Ganesh White MA - 04/01/2024 2:28 PM EDT Patient was in ER for allergic reaction. Dr. Beasley message. Advise patient to stop the losartan. Though it is rare it can cause angio edema. Needs f/u in 3-5 days. Please assist patient for follow up with PCP/team. /Ganesh White MA [facility]09-09-2024 NoteHNO ID: [id number] Author: GANESH WHITE MA Service: ? Author Type: Gas Transfer Operator Type: Progress Notes Filed: 04/01/2024 14:28 Note Text: Left message for patient to contact office. Ganesh White [facility]09-09-2024 History of Present illness Narrative* Ganesh White MA - 04/01/2024 2:27 PM EDT Left message for patient to contact office. Ganesh White MA * Valeriano Beasley MD - 04/01/2024 1:48 PM EDT Advise patient to stop the losartan. Though it is rare it can cause angio edema. Needs f/u in 3-5 days. * Ganesh White MA - 04/01/2024 1:41 PM EDT Scan on 03/29/2024 4:41 PM by Provider, External, PA-C: Consultation - Emergency Medicine Ganesh White MA documented in this encounterMccullough-[facility]09-09-2024 NoteHNO ID: [id number] Author: VALERIANO BEASLEY MD Service: ? Author Type: Physician Type: Progress Notes Filed: 04/01/2024 13:49 Note Text: Advise patient to stop the losartan. Though it is rare it can cause angio edema. Needs f/u in 3-5 days.[facility]09-09-2024 NoteHNO ID: [id number] Author: GANESH WHITE MA Service: ? Author Type: Gas Transfer Operator Type: Progress Notes Filed: 04/01/2024 13:46 Note Text: Scan on 03/29/2024 4:41 PM by ProviderBing PA-C: Consultation - Emergency Medicine Ganesh White [facility]09-06-2024 NoteHNO ID: [id number] Author: GARDENIA VILLAREAL APRN.PONCHO Service: ? Author Type: Nurse Practitioner Type: Progress Notes Filed: 03/29/2024 11:29 Note Text: Nazario Hutton is a 73 year old male who presents with a swollen tongue. Onset- when he awoke today. Denies difficulty breathing. No pain. Is able to swallow but has difficulty-sometimes has to spit saliva out. He is referred to ER for further evaluation and treatment. He is agreeable to this and will go to [place] ED. Offered ambulance transport-he refused. He appears stable to self-transport. Report sent via ER passport. Gardenia Villareal APRN.[facility]09-06-[facility]24 History of Present illness Narrative* Gardenia Villareal APRN.[facility] - 03/29/2024 11:23 AM EDT Nazario Hutton is a 73 year old male who presents with a swollen tongue. Onset- when he awoke today. Denies difficulty breathing. No pain. Is able to swallow but has difficulty-sometimes has to spit saliva out. He is referred to ER for further evaluation and treatment. He is agreeable to this and will go to [place] ED. Offered ambulance transport-he refused. He appears stable to self-transport. Report sent via ER passport. Gardenia Villareal APRN.COMMERCIAL REVIEW APPRAISER documented in this encounterMccullough-[facility]07-17-2024 Telephone encounter Note * Telephone Encounter - Bhavani Turk LPN - 02/07/2024 9:19 AM EDT Please assist pt in scheduling CTA. Please assist in scheduling a follow up with neuro ODALIS after scans. Bhavani Truk LPN [facility]07-17-2024 Miscellaneous Notes* Telephone Encounter - Bhavani Turk LPN - 02/07/2024 9:19 AM EDT Please assist pt in scheduling CTA. Please assist in scheduling a follow up with neuro ODALIS after scans. Bhavani Turk LPN * Addendum Note - Patria Khanna Jr., MD - 02/07/2024 8:45 AM EDTAddended by: PATRIA KHANNA on: 02/07/2024 08:45 AM Modules accepted: Orders * Telephone Encounter - Patria Khanna Jr., MD - 02/07/2024 8:43 AM EDT Please schedule pt with neuro ODALIS JOSE LUIS for follow up. I will also place order for vascular consult now. If no stenosis on CTA we can cancel. Patria Khanna MD * Telephone Encounter - Sam Littlejohn RN - 02/06/2024 4:01 PM EDT Pt returned the call and will proceed with CTA head/neck with IV contrast as soon as possible. Please contact pt to set up appt as soon as order is placed. Pt aware it needs to be done as soon as possible. Pt has viewed some results on his MyChart. Pt has a lot of questions. Answered to the best ofmy knowledge- aware that further testing will help answer some of his questions. Explained to pt that the MRI of the brain, MRA of the brain and the MRA of the carotid all had the same Impression. * Telephone Encounter - Bhavani Turk LPN - 02/06/2024 11:12 AM EDT TC to pt with no answer, left VM to return call. Bhavani Turk LPN * Telephone Encounter - Bhavani Turk LPN - 02/06/2024 11:10 AM EDT ----- Message from Patria Khanna Jr., MD sent at 02/06/2024 11:02 AM EDT ----- Please inform patient that the MRA did show possible severe narrowing of the L carotid artery. Radiology is recommending this be confirmed with CTA. If patient willing, and would recommend it be completed, I will place order for CTA to further evaluate. Please let me know. Thank you, Patria Khanna MD documented in this encounterMccullough[facility]07-17-2024 Note* Addendum Note - Patria Khanna Jr., MD - 02/07/2024 8:45 AM EDTAddended by: PATRIA KHANNA on: 02/07/2024 08:45 AM Modules accepted: Orders [facility]07-17-2024 Telephone encounter Note* Telephone Encounter - Patria Khanna Jr., MD - 02/07/2024 8:43 AM EDT Please schedule pt with neuro ODALIS JOSE LUIS for follow up. I will also place order for vascular consult now. If no stenosis on CTA we can cancel. Patria Khanna MD [facility]07-16-2024 Telephone encounter Note* Telephone Encounter - Sam Littlejohn RN - 02/06/2024 4:01 PM EDT Pt returned the call and will proceed with CTA head/neck with IV contrast as soon as possible. Please contact pt to set up appt as soon as order is placed. Pt aware it needs to be done as soon as possible. Pt has viewed some results on his Review[employer]. Pt has a lot of questions. Answered to the best ofmy knowledge- aware that further testing will help answer some of his questions. Explained to pt that the MRI of the brain, MRA of the brain and the MRA of the carotid all had the same Impression. [facility]07-16-2024 Telephone encounter Note* Telephone Encounter - Bhavani Turk LPN - 02/06/2024 11:12 AM EDT TC to pt with no answer, left VM to return call. Bhavani Turk LPN [facility]07-16-2024 Telephone encounter Note* Telephone Encounter - Bhavani Turk LPN - 02/06/2024 11:10 AM EDT ----- Message from Patria Khanna Jr., MD sent at 02/06/2024 11:02 AM EDT ----- Please inform patient that the MRA did show possible severe narrowing of the L carotid artery. Radiology is recommending this be confirmed with CTA. If patient willing, and would recommend it be completed, I will place order for CTA to further evaluate. Please let me know. Thank you, Patria Khanna MD [facility]07-16-2024 History of Present illness Narrative* Dariana Collier RT(R) - 02/06/2024 9:20 AM EDT Radiology Service Progress Note PATIENT NAME: Nazario Hutton DATE OF SERVICE: February 06, 2024 TIME: 9:30 AM PATIENT IDENTITY VERIFICATION COMPLETED USING TWO (2) IDENTIFIERS: Name and Date of confirmedby patient verbally. FALL SCREENING: Has the patient had 2 falls in the last year or 1 fall with injury or currently using an Ambulatory Assistive Device (Walker, Cane, Wheelchair, Crutches, etc.)? No PATIENT GENDER DATA: Male PATIENT RELEVANT IMPLANT DATA REVIEWED: Yes PATIENT PRESENTS WITH AN IMPLANTABLE OR ATTACHED MEATMAN: No RADIOLOGY DEPARTMENT: MR; Exam(s) Completed: Head: Routine Brain [place] MRA Neck: Carotids MRA, bilateral PERIPHERAL IV DATA: Not applicable SIGNED BY: RT Brandon(Federico) February 06, 2024 9:30 AM documented in this encounterMccullough-[facility]07-16-2024 NoteHNO ID: [id number] Author: DARIANA COLLIER RT(R) Service: ? Author Type: Technologist Type: Progress Notes Filed: 02/06/2024 09:30 Note Text: Radiology Service Progress Note PATIENT NAME: Nazario Hutton DATE OF SERVICE: February 06, 2024 TIME: 9:30 AM PATIENT IDENTITY VERIFICATION COMPLETED USING TWO [...] PATIENT PRESENTS WITH AN IMPLANTABLE OR ATTACHED MEATMAN: No RADIOLOGY DEPARTMENT: MR; Exam(s) Completed: Head: Routine Brain [place] MRA Neck: Carotids MRA, bilateral PERIPHERAL IV DATA: Not applicable SIGNED BY: RT Brandon(R) February 06, 2024 9:30 [facility]07-10-2024 NoteHNO ID: [id number] Author: LUPILLO MOURA LPN Service: ? Author Type: LICENSED NURSE Type: Progress Notes Filed: 01/31/2024 11:34 Note Text: Scan on 01/31/2024 10:24 AM by ProviderBing PA-C: [facility]07-[facility] History of Present illness Narrative* Lupillo Moura LPN - 01/31/2024 11:34 AM EDT Scan on 01/31/2024 10:24 AM by ProviderBing PA-C: Consultation - Cardiology documented in this encounterMccullough-[facility]06-26-2024 Telephone encounter Note * Telephone Encounter - Laly Bhandari OCCA - 01/17/2024 10:49 AM EDT Multiple attempts by phone and MC message to reach patient regarding abnormal lab results. Letter mailed to patients home address requesting return call to office. YASMEEN Childers [facility]06-26-2024 Miscellaneous Notes* Telephone Encounter - Laly Bhandari OCCA - 01/17/2024 10:49 AM EDT Multiple attempts by phone and MC message to reach patient regarding abnormal lab results. Letter mailed to patients home address requesting return call to office. YASMEEN Childers * Telephone Encounter - Ary Waggoner LPN - 01/16/2024 6:00 PM EDT Phone call placed, no answer brief message to contact a nurse. VULCUN logon . Ary Waggoner LPN * Telephone Encounter - Bhavani Turk LPN - 01/12/2024 4:07 PM EDT TC to pt with no answer, left VM to return call. Bhavani Turk LPN * Telephone Encounter - Bhavani Turk LPN - 01/08/2024 4:17 PM EDT Attempted to call pt. Unable to reach him due to static on phone lines. Will try again. Bhavani Turk LPN * Telephone Encounter - Bhavani Turk LPN - 01/08/2024 4:13 PM EDT ----- Message from Patria Khanna Jr., MD sent at 01/08/2024 4:10 PM EDT ----- Pt with multiple abnormal labs including +GALLO with DNA Ab DA that could suggest autoimmune/inflammatory disorder, and thus, would like pt to see Rheum for evaluation. Also abnormal SPEP, and would like pt to see Heme. B6 also low and recommend pt start on B Vitamin supplement. Patria Khanna MD documented in this encounterMccull[facility]06-25-2024 Telephone encounter Note * Telephone Encounter - Ary Waggoner LPN - 01/16/2024 6:00 PM EDT Phone call placed, no answer brief message to contact a nurse. VULCUN logon . Ary Waggoner LPN [facility]06-21-2024 Telephone encounter Note* Telephone Encounter - Bhavani Turk LPN - 01/12/2024 4:07 PM EDT TC to pt with no answer, left VM to return call. Bhavani Turk LPN [facility]06-17-2024 Telephone encounter Note* Telephone Encounter - Bhavani Turk LPN - 01/08/2024 4:17 PM EDT Attempted to call pt. Unable to reach him due to static on phone lines. Will try again. Bhavani Turk LPN [facility]06-17-2024 Telephone encounter Note* Telephone Encounter - Bhavani Turk LPN - 01/08/2024 4:13 PM EDT ----- Message from Patria Khanna Jr., MD sent at 01/08/2024 4:10 PM EDT ----- Pt with multiple abnormal labs including +GALLO with DNA Ab DA that could suggest autoimmune/inflammatory disorder, and thus, would like pt to see Rheum for evaluation. Also abnormal SPEP, and would like pt to see Heme. B6 also low and recommend pt start on B Vitamin supplement. Patria Khanna MD [facility]06-17-2024 Telephone encounter Note* Telephone Encounter - Teodoro Dye LPN - 01/08/2024 3:15 PM EDT The patient has been identified by name and date of : Yes Caregiver verified no other encounters exist for this prescription request: Yes Caregiver confirmed with patient/requestor that no other refills are due, in the near future, with this provider at this time: Yes The last office visit in the department: 2023 Does the patient have a future office visit with this provider/department: Yes 04/24/2024 Requested Prescriptions Pending Prescriptions Disp Refills allopurinol (ZYLOPRIM) 100 mg tablet 90 tablet 1 Sig: TAKE 1 TABLET BY MOUTH ONCE DAILY. FOR GOUT. sertraline (ZOLOFT) 100 mg tablet 90 tablet 1 Sig: Take one tablet by mouth daily Teodoro Dye LPN January 08, 2024 3:16 PM [facility]06-17-2024 Miscellaneous Notes* Telephone Encounter - Teodoro Dye LPN - 01/08/2024 3:15 PM EDT The patient has been identified by name and date of : Yes Caregiver verified no other encounters exist for this prescription request: Yes Caregiver confirmed with patient/requestor that no other refills are due, in the near future, with this provider at this time: Yes The last office visit in the department: 2023 Does the patient have a future office visit with this provider/department: Yes 04/24/2024 Requested Prescriptions Pending Prescriptions Disp Refills allopurinol (ZYLOPRIM) 100 mg tablet 90 tablet 1 Sig: TAKE 1 TABLET BY MOUTH ONCE DAILY. FOR GOUT. sertraline (ZOLOFT) 100 mg tablet 90 tablet 1 Sig: Take one tablet by mouth daily Teodoro Dye LPN January 08, 2024 3:16 PM documented in this encounterMccullough-[facility]06-10-2024 History of Present illness Narrative* Patria Khanna Jr., MD - 01/01/2024 3:53 PM EDT NEW PATIENT (CONSULT) HISTORY AND PHYSICAL EXAM PRIMARY CARE PHYSICIAN: Valeriano Beasley MD REASON FOR CONSULT: Pt reported bilateral numbness, weakness hands, feet x2 yrs. REFERRING PHYSICIAN: Suzanna Dawson PA-C CHIEF COMPLAINT: Balance issues, numbness HISTORY OF PRESENT ILLNESS: Nazario Hutton is a 73 year old male, BMI 31.38 kg/m2 with a PMH significant for lumbar pain for which he was seen by Dr. Valverde for MRI showing L4-5 disc degeneration R>L ([facility]) and EMG/NCV showing R L5 radic but no evidence of peripheral neuropathy (performed at [facility]). Numbness in hands and feet that was thought possibly associated with low B12. Balance issues thought possibly related to postural hypotension. States he has no pain. States numbness symptoms symmetric. Symptoms present for couple years. No DM. No thyroid disease. He is on B12 supplement. Vitamin B12 Date Value Ref Range Status 10/17/2023 896 232 - 1,245 pg/mL Final States balance might be better since on B12, but not other symptoms improving. Never on chemo therapy. Denies heavy metal exposures or abnormal chemical exposures. Numbness most prominent symptom daily - can last few second of minutes and can even go a day without it. Balance also present daily. States balance issues primarily occur when first stands up. States he developed a walk like on ice so he does not fall. While he states positional then tells me that the balance issues can last all day.Denies feeling like going to pass out. Denies head trauma. Balance issues started after having an SD couple years ago. No neck pain. Can get pain in the posterior cranium over the javier greater occipital nerves. States everything is kind of random. Denies history of diplopia, vision loss or change inspeech. 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 Family and friends do not report additional symptoms to him. No tremors. No falls. TSH Date Value Ref Range Status 04/20/2023 3.260 0.270 - 4.200 mIU/L Final WSR Date Value Ref Range Status 07/09/2018 21 (H) 0 - 15 mm/hr Final Adds that was in hospital in 07/2023 for rectal bleeding and Hgb dropped to 6 - at [facility] - had colonoscopy and during which bleeding was stopped. Pt also received PRBCs. 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 States when symptoms started they were of acute onset. REVIEW OF SYSTEMS GENERAL:No weight loss, malaise or fevers. HEENT:Negative for frequent or significant headaches, No changes in hearing or vision, no nose bleeds or other nasal problems NECK:Negative for lumps, goiter, pain and significant neck swelling RESPIRATORY: Negative for cough, wheezing or shortness of breath. CARDIOVASCULAR: Negative for chest pain, leg swelling or palpitations. GASTROINTESTINAL: Negative for abdominal discomfort, blood in stools or black stools or change in bowel habits GENITOURINARY: No history of dysuria, frequency or incontinence MUSCULOSKELETAL: Negative for joint pain or swelling, back pain or muscle pain. NEUROLOGIC:Negative for focal numbness or weakness, headaches and dizziness or syncope, vision changes, speech/language changes, changes in gait or falls -- besides those complaints as above in HPI. SKIN:Negative for lesions, rash, and itching. LAB/IMAGING: Reviewed and include: Blood pressure 138/84, pulse 76, resp. rate 16, weight 93.6 kg (206 lb 6.4 oz), SpO2 96%. Repeat BP 166/84 Orthostatics sitting and standing unchanged: BP 178/96 with HR 60 MEDICATIONS: losartan (COZAAR) 50 mg tablet Take 1 tablet by mouth once daily. allopurinol (ZYLOPRIM) 100 mg tablet TAKE 1 TABLET BY MOUTH ONCE DAILY. FOR GOUT. sertraline (ZOLOFT) 100 mg tablet Take one tablet by mouth daily atorvastatin (LIPITOR) 80 mg tablet TAKE 1 [...] 1 capsule by mouth daily at bedtime. VITAMIN B COMPLEX (B COMPLEX 1 ORAL) Take by mouth. diphenhydrAMINE (BENADRYL) 25 mg capsule Take 25 mg by mouth every 6 hours as needed. ezetimibe (ZETIA) 10 mg tablet Take 1 tablet by mouth once daily. Blood Pressure Cuff - Home Use BLOOD PRESSURE CUFF FOR HOME USE. DX: LABILE BLOOD PRESSURE (Patientnot taking: Reported on 01/01/2024) HISTORIES PAST MEDICAL HISTORY Diagnosis Date Advance directive discussed with patient 04/18/2022 Discussed 03/2022 Alcohol abuse 09/14/2022 6 beers a day since passed in early 2021 Anxiety 12/08/2014 AVM (arteriovenous malformation) of colon 09/14/[address] Chacon BENIGN HYPERTENSION 03/04/2008 Coronary artery disease due to lipid rich plaque 12/06/[address] Edwards , cardio [place] Diverticulosis 09/05/2022 Elevated alkaline phosphatase level 09/03/2017 Elevated PSA 03/17/2021 Heart murmur, systolic 08/01/2018 High serum parathyroid hormone (PTH) 08/01/[address] elevation myocardial infarction (STEMI) 12/06/2021 Hyperuricemia 10/30/[address] 04/18/2022 DPA: Jae (son) Low serum vitamin B12 05/18/2023 Low vitamin D level 03/15/2021 Lumbosacral radiculopathy at L5 07/10/2023 Medicare annual wellness visit, subsequent 03/15/2021 Medicare Part B: Not able to find. 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 HEENT: NC/AT, nasal congestion absent, no oral lesions, membranes moist. NECK: ROM nml. Lungs: CTA bilaterally. CV: RRR nl S1, S2. No carotid bruits. Extr: No cyanosis, clubbing or edema. No evidence of fasciculations. Extremity pulses palpable and normal. Skin: Cool to touch. NEUROLOGICAL EXAM: General: Awake, alert, oriented x3 (person,place,time), fluent, no dysarthria; comprehension, naming, repetition intact. Fund of knowledge grossly normal. CN: PERRL, fundi with no evidence of papilledema, EOMI and without nystagmus, VFF to confrontation,facial sensation and strength are normal and symmetric, hearing is intact to finger rub bilaterally, palate and tongue movements are intact and symmetric. SCM and trapezius strength normal. Motor: Normal tone, bulk and strength (5/5) bilaterally (throughout extremities x4). Reflexes: 2/4 and symmetric, plantar stimulation is flexor. Coordination: FNF, WENCESLAO, HTS intact. No tremors. Sensation: LT intact throughout, vibration diminished in toes javier, temp and pin decreased distal toknees and elbows javier in stocking glove pattern. No evidence of neglect. Gait: Mild wide based but stable with normal stride and arm swing. Romberg normal. No retropulsion. Assessment and Plan: ASSESSMENT/PLAN: 1. Balance problems - ICD9: 781.99, ICD10: R26.89 (primary diagnosis) 2. Abnormality of gait - ICD9: 781.2, ICD10: R26.9 3. Numbness - ICD9: 782.0, ICD10: R20.0 4. Neuropathy - ICD9: 355.9, ICD10: G62.9 5. Other symptoms and signs involving the nervous system - ICD9: 781.99, ICD10: R29.818 6. History of CAD (coronary artery disease) - ICD9: V12.59, ICD10: Z86.79 7. History of coronary artery stent placement - ICD9: V45.82, ICD10: Z95.5 Patient with symptoms as above that have been of uncertain etiology. Ddx at this time would includethe following: Given acute onset of symptoms, and there occurring in the setting of SD/cardiac condition, do need to be concerned that ataxia or sense of imbalance may be secondary to cardio embolic stroke. While exam non-focal at this time, may have still had a posterior fossa stroke 2 years ago resulting in chronic symptoms. To further evaluate will have patient undergo MRI brain with MRA head and neck to evaluate for stroke as well as large vessel disease. In process, will also be evaluating for VBI which too could result in symptoms of imbalance. Based on stocking glove pattern of numbness, as well as sensory deficits on exam, also need to consider possible small fiber neuropathy with possible superimposed early large fiber neuropathy (low B12). Sensory deficits might result in sensation of unsteadiness, but also may have some degree of autonomic dysfunction as well although orthostatics negative during visit. Discussed further diagnosticoptions. I do not see benefit of repeating EMG/NCV as will not flower picker small fiber disorder and still too early in large fiber symptoms to be of benefit. 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 States numbness not significant enough to need meds. Will have pt follow up after above workup complete to determine additional workup or treatment. Patria Khanna MD I spent a total of 56 minutes on the date of the service which included preparing to see the patient, [id number] patient care, completing clinical documentation, obtaining and/or reviewing separately obtained history, performing a medically appropriate examination, counseling and educating the pat ient/family/caregiver, ordering medications, tests, or procedures, and communicating results to thepatient/family/caregiver. Medical Decision Making: Problems: Moderate: New problem with uncertain prognosis Data: Unique test result(s) reviewed: 3+ Unique test(s) ordered: 2 Medical Decision Making Level: 4 - Moderate * Ary Waggoner LPN - 01/01/2024 3:32 PM EDT documented in this encounterM[facility]06[facility] Telephone encounter Note * Telephone Encounter - Sean Abbasi RN - 12/28/2023 4:17 PM EDT Patient phoned to ask if Dr. Khanna ordered labs for his appt on Monday. Advised Dr Khanna did not order labs for patient. [facility] Miscellaneous Notes* Telephone Encounter - Sean Abbasi RN - 12/28/2023 4:17 PM EDT Patient phoned to ask if Dr. Khanna ordered labs for his appt on Monday. Advised Dr Khanna did not order labs for patient. documented in this encounterMccull[facility]05-28-2024 History of Present illness Narrative* Karla Villa LPN - 12/19/2023 1:06 PM EDT Scan on 12/18/2023 11:18 AM by Provider, ELIZABETH Smart: Stress Test Karla Villa LPN documented in this encounterMccullough[facility]03-26-2024 Miscellaneous Notes* Telephone Encounter - Valeriano Beasley MD - 10/17/2023 3:52 PM EDT Order for Urology consult signed and that encounter has been closed. * Telephone Encounter - Ganesh White MA - 10/17/2023 11:54 AM EDT Saw patient had called about labs. Called him back to let him know orders are in. Also asked patient which urologist he wanted and he indicated Dr. Savage. Sending over information to their office. Ganesh White MA * Telephone Encounter - Ganesh White MA - 10/16/2023 3:49 PM EDT Left additional message for patient to contact office. Ganesh White MA * Telephone Encounter - Zakiya Spangler MA - 10/16/2023 10:42 AM EDT Pt has upcoming appt on 10/19/23 with Suzanna. Please discuss with pt. We've attempted to reach out to him with no call back received. Made note on appt. Zakiya Spangler Ma * Telephone Encounter - Karla Villa LPN - 10/13/2023 10:26 AM EDT Left message to call office. 10/13/2023 10:26 AM. Karla Villa LPN * Telephone Encounter - Ganesh White MA - 10/10/2023 8:21 AM EDT Left message for patient to contact office. Please find out what Urologist he would like to see. Ganesh White MA * Telephone Encounter - Valeriano Beasley MD - 10/09/2023 5:13 PM EDT There was never an order placed for a urology consult. Patient was asked on 08/30/2023 if he want to stay with [facility] and possibly have to travel or see Dr. Savage locally. He said he would think this overand call us back to let us know of his decision and he has never done this. * Telephone Encounter - Carleen Berg LPN - 10/03/2023 11:44 AM EDT Pt is calling to report he has not scheduled with a urologist yet. Order from 08/30/23 - Consult to Urology has status of Pending Future. Please review order or place new order. Call pt when order has been placed so he can schedule. Pt did mention he might want two urologists opinions on his condition. Pt reports his son advised him of this. Advised pt to call insurance to see if that is covered. Carleen Berg LPN documented in this encounterMccull[facility]03-26-2024 Miscellaneous Notes* Telephone Encounter - Ganesh White MA - 10/17/2023 11:56 AM EDT Spoke with patient,. Ganesh White MA * Telephone Encounter - Suzanna Dawson PA-C - 10/17/2023 11:44 AM EDT Orders placed. * Telephone Encounter - Chantell Quach LPN - 10/17/2023 11:27 AM EDT Appointment 2023 * Telephone Encounter - Karla Levin - 10/17/2023 11:24 AM EDT Patient called requesting labs before his appointment please advise documented in this encounterMccull[facility]03-23-2024 History of Present illness Narrative* Genny Gr MA - 10/14/2023 9:49 AM EDT POPULATION HEALTH NAVIGATION OUTREACH Action/ Last Wellness exam 04.20.2023 Reason for Outreach Care Gap/HCC or Scheduling Wellness Visits Care Gaps due: Medicare Annual Wellness Visit Patient Contacted: Unable or unnecessary to reach patient: Left message MyChart message sent Navigation Signature: Genny Tsai MA October 14, 2023 9:50 AM documented in this encounterMccull[facility]03-12-2024 Miscellaneous Notes* Telephone Encounter - Carleen Berg LPN - 10/03/2023 11:43 AM EDT Spoke to pt today about another issue. 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 documented in this encounterM[facility]03-08-2024 History of Present illness Narrative* Lupillo Moura LPN - 09/29/2023 7:53 AM EST Scan on 09/28/2023 11:17 AM by ProviderBing PA-C: Echo Scan on 09/28/2023 11:17 AM by Provider, External, PA-C: Echo documented in this encounterMccull[facility]03-04-2024 Miscellaneous Notes* Telephone Encounter - Valeriano Beasley MD - 09/25/2023 10:57 PM EST The following approved medication requests have been transmitted electronically. Requested Prescriptions Signed Prescriptions Disp Refills losartan (COZAAR) 50 mg tablet 90 tablet 1 Sig: Take 1 tablet by mouth once daily. Authorizing Provider: VALERIANO BEASLEY MD * Telephone Encounter - Lupillo Moura LPN - 09/25/2023 2:21 PM EST Patient has been identified by name and date of : Yes, Provider Dr Beasley Date 09/25/23 Time 2:21 pm Patient phones for refill(s): Requested Prescriptions Pending Prescriptions Disp Refills losartan (COZAAR) 50 mg tablet 90 tablet 1 Sig: Take 1 tablet by mouth once daily. Date of last office visit in primary care: 07/10/2023 Date of next office visit in primary care: 2023 Please advise. Thank you. Lupillo Moura LPN. * Telephone Encounter - Grisel Bales - 09/25/2023 1:56 PM EST Patient has been identified by name and date of : Yes Requested Prescriptions Pending Prescriptions Disp Refills losartan (COZAAR) 50 mg tablet 90 tablet 1 Sig: Take 1 tablet by mouth once daily. RX INSTRUCTIONS: Patient aware RX escripted to mail away pharmacy. No need to notify patient. Grisel Hughes documented in this encounterMccull[facility]02-15-2024 History of Present illness Narrative* Lupillo Moura LPN - 09/07/2023 7:33 AM EST Scan on 09/05/2023 5:03 PM by ProviderBing PA-C: Consultation - Cardiology documented in this encounterMccull[facility]02-14-2024 History of Present illness Narrative* Lupillo Moura LPN - 09/06/2023 8:17 AM EST Scan on 09/05/2023 1:01 PM by ProviderBing PA-C: Consultation - Cardiology Scan on 09/05/2023 1:24 PM by Bing Salmeron PA-C: Miscellaneous Lab documented in this encounterMccull[facility]02-12-2024 History of Present illness Narrative* Kelsea Moe LPN - 09/04/2023 3:03 PM EST Scan on 09/02/2023 12:52 PM by ProviderBing PA-C: X-ray documented in this [facility]02-09-2024 History of Present illness Narrative* Lupillo Moura LPN - 09/01/2023 12:21 PM EST Scan on 09/01/2023 11:52 AM by Bing Salmeron PA-C: Consultation - Orthopedics documented in this [facility]02-07-2024 Miscellaneous Notes* Telephone Encounter - Karla Villa LPN - 08/30/2023 12:00 PM EST Pt was notified of results & message from provider, states understanding. Pt is going to think about who he prefers to see & will call the office back with his decision. Referral pending. Karla Villa LPN * Telephone Encounter - Ganesh White MA - 08/30/2023 9:44 AM EST Left message for patient to contact office. Ganesh White MA * Telephone Encounter - Valeriano Beasley MD - 08/29/2023 8:05 PM EST Let patient know his CT of the kidnies showed no masses. Thee is the presence of several kidney stones in both kidnies and two fairly large ones on the right that has caused some dilation of the collecting system in the right kidney. It 's these stones and the dilation changes that caused the appearance of a mass in the right kidney. I would like to have him see urology. We can do [facility] or Dr. Savage locally. 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 Refer to KDIGO guidelines for clinical interpretation. In patients with unstable renal function, e.g. those with acute kidney injury, the eGFRmay not accurately reflect actual GFR. eGFR- Date [...] 2023 TIME: 3:13 PM documented in this encounterMccull[facility]02-02-2024 History of Present illness Narrative* Kirsten Denny MA - 08/25/2023 10:03 AM EST POPULATION HEALTH NAVIGATION OUTREACH Action/I HM Due: Medicare wellness 2023 (last - 04/20/23). PCP follow up currently scheduled for 10/19/23. Left voice mail for patient to call back. [employer] message sent. Patient Identified by Name and : NO Outreach Outcome/Action Unable to reach patient: Left message ReviewProhart message sent Did you use a PCP flex slot to schedule this appointment? N/A Reason for Outreach Care Gap or Scheduling/Wellness visits Payer: Payor: [facility] MEDICARE / Plan: [facility] MEDICARE HMO / Product Type: HMO / Care Gap Reviewed:: Annual Wellness visit Reminder: Reminder note to check Health Maintenance for items below Health Maintenance items due: RSV Vaccine(1 - 1-dose 60+ series) Never done BP Controlled (<130/80) due on 03/15/2022 Advance Directive Discussion due on 07/24/2023 Navigation Signature: Kirsten Denny MA August 25, 2023 10:03 AM documented in this encounterMccull[facility]01-31-2024 Miscellaneous Notes* Telephone Encounter - Pineda Styles RN - 08/23/2023 2:27 PM EST Patient calls and notified of results and providers instructions. Patient verbalizes understanding.Transferred to schedule. Pineda Styles RN * Telephone Encounter - Carey Eisenberg RN - 08/22/2023 10:59 AM EST Called and left a voicemail for the Patient to call back and ask for a nurse to receive the providers message. Carey Eisenberg RN * Telephone Encounter - Valeriano Beasley MD - 08/21/2023 5:40 PM EST Let patient know US of kidnies showed that the suspected Cystic lesions visualized on MRI are not well visualized sonographically and could be further evaluated with cross-sectional imaging. Therefore I have placed an order for a CT with and without contrast. documented in this encounterM[facility]11-09-2023 History of Present illness Narrative* Ganesh White MA - 06/01/2023 9:35 AM EST See phone note. Left message for patient. Ganesh White MA * Valeriano Beasley MD - 05/29/2023 5:19 PM EST Let patient know his nerve studies shows a radiculopathy on the right coming from his L5 region. I can try and order a MRI to look at his lumbar spine if ok with this? * Zenobia Segovia Ma - 05/26/2023 4:36 PM EDT Scan on 05/25/2023 12:49 PM by Provider, Bing, ELIZABETH: Consultation - Pulmonary documented in this encounterMccull[facility]11-02-2023 Procedure [facility]10-26-2023 Instructions* Patient Instructions* Valeriano Beasley MD - 05/18/2023 10:54 AM EDT Start taking over the counter B12 1000 mcg one a day documented in this encounterMccullough-[facility]10-26-2023 History of Present illness Narrative* Valeriano Beasley MD - 05/18/2023 10:40 AM EDT Chief Complaint Patient presents with: Follow Up: [...] phose, recent GI bleed with Anemia and SD due to stress from the GI bleed. Patient does see Dr. Chacon last visit 01/05/2023 Patient also see [facility] last visit 12/09/2022 Patient stopped [...] to lipid rich plaque 12/06/[address] Edwards , cardio [place] Diverticulosis 09/05/2022 Elevated alkaline phosphatase level 09/03/2017 Elevated PSA 03/17/2021 Heart murmur, systolic 08/01/2018 High serum parathyroid hormone (PTH) 08/01/[address] elevation myocardial infarction (STEMI) 12/06/2021 Hyperuricemia 10/30/[address] 04/18/2022 DPA: Jae (son) Low vitamin D level 03/15/2021 Medicare annual wellness visit, subsequent 03/15/2021 Medicare Part B: Not able to find. 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 Valeriano Beasley MD documented in this encounterMccull[facility]09-28-2023 History of Present illness Narrative* Lupillo Moura LPN - 04/20/2023 1:30 PM EDT Ambulatory Ear Lavage Pre-treatment: No pre-treatment Treatment: Right ear Equipment and Irrigation solution and Volume used: Single use syringe with single use irrigation tip Water Return flow appearance: Brown Other only a few flecks Patient tolerated procedure: yes Tympanic membrane assessment: Tympanic membrane assessed by LIP pre and post procedure * Valeriano Beasley MD - 04/20/2023 11:14 AM EDT Medicare Visit Medical B eligibility date Not [...] BP Cuff Size: Regular Adult) Pulse 62 Resp16 Ht 174.6 cm (5' 8.75) Wt 91.2 kg (201 lb) BMI 29.90 kg/m Alert and oriented X 3: YES Body mass index is 29.90 kg/m . Visual acuity: seeing optho See below ASSESSMENT/PLAN: 72 year old male The following prevention plan was discussed during the office visit and provided to the patient: See below Valeriano Beasley MD Chief Complaint Patient presents with: Medicare Wellness Exam HPI Nazario Hutton is a 72 year old male who presents here today for Chronic Medical Conditions. andMedicare Annual Visit. No other concerns today. Patient with hx of anxiety, HTN, hyperlipidemia, CAD, elevated alk phose, recent GI bleed with Anemia and SD due to stress from the GI bleed. Patient does see Dr. Chacon last visit 01/05/2023 Patient also see [facility] last visit 12/09/2022 Patient stopped [...] to lipid rich plaque 12/06/[address] Edwards , cardio [place] Diverticulosis 09/05/2022 Elevated alkaline phosphatase level 09/03/2017 Elevated PSA 03/17/2021 Heart murmur, systolic 08/01/2018 High serum parathyroid hormone (PTH) 08/01/[address] elevation myocardial infarction (STEMI) 12/06/2021 Hyperuricemia 10/30/[address] 04/18/2022 DPA: Jae (son) Low vitamin D level 03/15/2021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 09/09/22 1647 <Electronically signed by Obdulio Crespo MD> Cosigner Signature (if applicable): CC: Dr. Valeriano Beasley MD; Dr. Obdulio Crespo MD~ Signed ADDENDUM by Dr. Obdulio Crespo MD on 09/10/22 at 1328 Addendum General: Alert, Oriented x3, Cooperative, No apparent distress HEENT: Atraumatic, PERRLA, EOMI, Normocephalic Oral: Moist Mucosa Neck: Supple, No JVD Lungs: Diminished, Normal air movement, No rhonchi, No wheeze, No rales Cardiovascular: Regular rate, Regular Rhythm, Normal S1, Normal S2, No murmurs Abdomen: Soft, Non Tender, Non-Distended, No Hepato-splenomegaly Extremities: trace edema, Capillary Refill Less than 3 Seconds Skin: No rashes, No breakdown Musculoskeletal: No Tenderness to Palpation of Joints or Extremities Neurological: Cranial nerves II-XII grossly intact, Motor Exam 5/5 strength throughout, Sensory exam intact to light touch and pain Psych/Mental Status: Normal Affect, Appropriate Discharge was canceled yesterday because of right lower extremity swelling whichhas almost completely resolved. Doppler of his lower extremity does not show a DVT therefore I discussed with him the plan for discharge today and both he and his son expressed understanding of the risk benefits going home and are okay with going home today. Visit Charges Inpatient E&M: 25338 Disch Hosp >30min 09/10/22 1328<Electronically signed by Obdulio Crespo MD> Cosigner Signature (if applicable): cc: Dr. Valeriano Beasley MD; Dr. Obdulio Crespo MD ~* Signed [facility] Work Phone: [phone] Crespo [facility] September 09, 2022 9:46am Note Date/Time September 09, 2022 9:42am [facility] Medical Records Department [address] [place] [address] Instructions for Home/Discharge Instructions 09/09/22 0941 MR#: [id number] Acct: [id number] Name: NAZARIO HUTTON Rep #:[id number] : 1950 71 From: Obdulio goyal MD PCP: Dr. Valeriano Beasley MD Status:ADM IN Discharge Instructions Diet Discharge Diet: Low fat / Low cholesterol Activity Discharge Activity: Return to Normal Activity Dressing / Incision Call your doctor if you observe: Fever of 101 or Higher, Shortness of breath, Dizziness, Fainting spells, Swelling in the ankles, Chest pain and Increased palpitations (irregular heartbeat) Follow Up Care Test Results: Test results from this visit will be discussed in further detail at your follow- up appointment, if applicable. Discharge Plan Admission Admit Date/Time: 09/02/22 14:43 Attending Provider: Obdulio Crespo Primary Care Provider: Valeriano Beasley Consulting Providers: Jael Ramos ; Lukas Cuevas ; Melissa Corbin Instructions Additional Instructions / Restrictions: Follow-up with your PCP in 3 to 5 days to obtain outpatient follow-up for your hemoglobin Discharge Orders/Prescriptions Prescriptions: New ascorbic acid (vitamin C) 500 mg Tablet 1,000 mg PO BIDCM 30 Days Qty: 120 0RF Rx Instructions: Take with iron tablets ferrous sulfate [FeroSul] 325 mg (65 mg iron) Tablet 325 mg PO 1200,1700 30 Days Qty: 60 0RF pantoprazole 40 mg Tablet,Delayed Release (Dr/Ec) 40 mg PO BID 30 Days Qty: 60 0RF Continued atorvastatin 80 mg Tablet 80 mg PO DAILY doxepin 25 mg Capsule 25 mg PO QHS allopurinol 100 mg Tablet 100 mg PO DAILY atenolol 50 mg Tablet 50 mg PO DAILY ofloxacin 0.3 % drops 1 drp EACH EYE 4X/DAY Label Comments: Instill 1 drop into right eye four times a day Use QID in operative eye 3 days prior to surgery and QID after surgery Rx Instructions: Instill 1 drop into right eye four times a day Use QID in operative eye 3 days prior to surgery and QID after surgery nitroglycerin 0.4 mg tablet, sublingual 0.4 mg sublingual UD PRN (Reason: Chest Pain) Label Comments: PLACE 1 TABLET UNDER TONGUE EVERY 5 MINS, UP TO 3 DOSES NEEDED FOR CHEST PAIN Rx Instructions: PLACE 1 TABLET UNDER TONGUE EVERY 5 MINS, UP TO 3 DOSES NEEDED FOR CHEST PAIN ezetimibe 10 mg tablet 10 mg PO DAILY Held clopidogrel 75 mg Tablet 75 mg PO DAILY Hold Instructions: Resume on 09/16/22. aspirin 81 mg tablet,delayed release (DR/EC) 81 mg PO DAILY Hold Instructions: Resume on 10/01/22. Hold until your PCP/[facility] decide to restart Label Comments: TAKE 1 TABLET BY MOUTH EVERY DAY Referrals / Follow Up: Lukas Cuevas MD [Med Staff - Active Staff] - Within 3 Months Valeriano Beasley MD [Primary Care Provider] - Within 1 Week Ahmet Chacon DO [Med Staff - Active Staff] - Within 1 Month Disposition Disposition (needs filled in before D/C Order can be placed): Home, Self Care 09/09/22 0946<Electronically signed by Obdulio Cresop MD>Obdulio Crespo MD CC: Dr. Jael Ramos MD; Dr. Lukas Cuevas MD; Dr. Valeriano Beasley MD; Dr. Melissa Corbin MD ~ Signed [facility] Work Phone: [phone] Progress note Author Ahmet Chacon [facility] September 08, 2022 6:54pm Note Date/Time September 08, 2022 6:54pm [facility] Medical Records Department [address] [place] [id number] Progress Note 09/08/22 1853 MR#: [id number] Acct: [id number] Name: NAZARIO HUTTON Rep #:[id number] : 1950 71 From: Ahmet Chacon DO PCP: Dr. Valeriano Beasley MD Status:ADM IN Location: [place] [address] Subjective Subjective Patient says that he still feels fatigued and weak. I explained to him that he did have a non-ST segment elevation SD secondary to demand ischemia from acute blood loss anemia. Objective Data Objective Data Vital Signs: Vital Signs Temp Pulse Resp BP Pulse Ox O2 Del Method O2 Flow Rate 98.3 F 81 16 135/74 H 99 Room Air 2 09/08/22 15:45 09/08/22 15:45 09/08/22 15:45 09/08/22 15:45 09/08/22 15:45 09/08/22 15:45 09/04/22 17:45 Oxygen Flow Rate (L/min) 2 Oxygen Delivery Method Room Air Weight: 201 lb 8.04 oz Body Mass Index (BMI) 26.9 Intake & Output: Intake and Output for Last 24 Hours 09/06/22 09/07/22 09/08/22 23:59 23:59 23:59 Intake Total 2590.00 / 2590.00 2566.25 / 2566.25 2210 / 2210 Balance 2590.00 / 2590.00 2566.25 / 2566.25 2210 / 2210 Lab / Micro Data Result Diagrams: 09/08/22 06:30 09/08/22 06:30 Labs: Laboratory Results - last 24 hr 09/08/22 06:30: WBC 5.8, RBC 2.35 L, Hgb 7.7 L, Hct 24.1 L, MCV 102.6 H, MCH 32.8 H, MCHC 32.0, RDW Std Deviation 68.5 H, RDW Coeff of Dorie 18.3 H, Plt Count 196, MPV 9.9, Immature Gran % (Auto) 0.300, Neut % (Auto) 65.0, Lymph % (Auto) 10.4 L, [place] % (Auto) 15.3 H, Eos % (Auto) 8.7 H, Baso % (Auto) 0.3, Absolute Neuts (auto) 3.7, Absolute Lymphs (auto) 0.60 L, Nucleated RBC % 0, DifferentialComment SCANNED, Anisocytosis 1+, Macrocytosis 1+ 09/08/22 06:30: Sodium 145, Potassium 3.7, Chloride 116 H, Carbon Dioxide 26.0, Anion Gap 3 L, BUN 2 L, Creatinine 0.65 L, Estim Creat Clear Calc 69.96, Est GFR(MDRD) Af Amer 155, Est GFR (MDRD) Non-Af 128, BUN/Creatinine Ratio 3.1 L, Glucose 103, Calcium 8.2 L Micro: Microbiology 09/02/22 22:40 Stool Stool Lactoferrin - Final 09/02/22 22:40 Stool Enteric Bacteriology - Final 09/02/22 22:40 Stool C. difficile DNA Amplification - Final Physical Exam Narrative General: Alert, Oriented x3, Cooperative, No apparent distress HEENT: Atraumatic, PERRLA, EOMI, Normocephalic Oral: Moist Mucosa Neck: Supple, No JVD Lungs: Diminished, Normal air movement, No rhonchi, No wheeze, No rales Cardiovascular: Regular rate, Regular Rhythm, Normal S1, Normal S2, No murmurs Abdomen: Soft, Non Tender, Non-Distended, No Hepato-splenomegaly Extremities: No edema, Capillary Refill Less than 3 Seconds Skin: No rashes, No breakdown Musculoskeletal: No Tenderness to Palpation of Joints or Extremities Neurological: Cranial nerves II-XII grossly intact, Motor Exam 5/5 strength throughout, Sensory exam intact to light touch and pain Psych/Mental Status: Normal Affect, Appropriate Assessment & Plan Assessment/Plan (1) NSTEMI (non-ST elevated myocardial infarction): PLAN: Non-ST segment elevation SD treated with heparin over the weekend and developed recurrent lower GI bleeding secondary to diverticular bleeding that was treated endoscopically. Recommending to hold antiplatelet therapy for at least a week. (2) Bloody diarrhea: PLAN: The Patient underwent 2 colonoscopies for recurrent GI bleeding secondary to status post endoscopic treatment. His hemoglobin is currently 10.1 and holding steady. Most diverticular bleeds will heal on its own without anticoagulation or antiplatelet therapy. This usually is 80% at will stop and 20% will not stop. He has not bled in 24 hours. His vitals are stable. (3) Acute blood loss anemia: PLAN: Monitor H&H every 6 hours. He is okay to have a liquid diet. I will givehim an iron transfusion today and he should have one tomorrow if he is going to be discharged tomorrow. His hemoglobin went back up from 7.4-8.3. If his hemoglobin continues to be stable he can be DC'd from a GI standpoint. Charges/Coding Visit Charges Inpatient E&M: 02340 Subs Hosp L3 09/08/22 185 <Electronically signed by Ahmet Chacon DO> Ahmet Chacon DO Coschucker Signature (if applicable): CC: ~ Signed [facility] Work Phone: [phone]) 351-981802-16-[address] Crespo [facility] September 08, 2022 4:14pm Note Date/Time September 08, 2022 4:14pm [facility] Medical Records Department [address] [place] [address] Progress Note - Hospitalist 09/08/22 1613 MR#: [id number] Acct: [id number] Name: NAZARIO HUTTON Rep #:[id number] : 1950 71 From: Obdulio goyal MD PCP: Dr. Valeriano Beasley MD Status:ADM IN Location: [place] [address] Reason for Visit Reason for Visit: Diagnoses Acute posthemorrhagic anemia (09/02/22) Non-ST elevation (NSTEMI) myocardial infarction (09/02/22) Chest pain, unspecified (09/02/22) Diarrhea, unspecified (09/02/22) Personal history of other diseases of the circulatory system (09/02/22) Subjective Subjective Doing well, no issues overnight Objective Data Objective Data Vital Signs: Vital Signs Temp Pulse Resp BP Pulse Ox O2 Del Method O2 Flow Rate 98.7 F 69 16 155/97 H 100 Room Air 2 09/08/22 10:07 09/08/22 10:07 09/08/22 10:07 09/08/22 10:07 09/08/22 10:07 09/08/22 10:08 09/04/22 17:45 Oxygen Flow Rate (L/min) 2 Oxygen Delivery Method Room Air Weight: 201 lb 8.04 oz Body Mass Index (BMI) 26.9 Intake & Output: Intake and Output for Last 24 Hours 09/07/22 09/08/22 09/09/22 03:59 03:59 03:59 Intake Total 2902.50 / 2902.50 1660 / 1660 1160 / 1160 Balance 2902.50 / 2902.50 1660 / 1660 1160 / 1160 Lab / Micro Data Result Diagrams: 09/08/22 06:30 09/08/22 06:30 Labs: Laboratory Results - last 24 hr 09/08/22 06:30: WBC 5.8, RBC 2.35 L, Hgb 7.7 L, Hct 24.1 L, MCV 102.6 H, MCH 32.8 H, MCHC 32.0, RDW Std Deviation 68.5 H, RDW Coeff of Dorie 18.3 H, Plt Count 196, MPV 9.9, Immature Gran % (Auto) 0.300, Neut % (Auto) 65.0, Lymph % (Auto) 10.4 L, [place] % (Auto) 15.3 H, Eos % (Auto) 8.7 H, Baso % (Auto) 0.3, Absolute Neuts (auto) 3.7, Absolute Lymphs (auto) 0.60 L, Nucleated RBC % 0, DifferentialComment SCANNED, Anisocytosis 1+, Macrocytosis 1+ 09/08/22 06:30: Sodium 145, Potassium 3.7, Chloride 116 H, Carbon Dioxide 26.0, Anion Gap 3 L, BUN 2 L, Creatinine 0.65 L, Estim Creat Clear Calc 69.96, Est GFR(MDRD) Af Amer 155, Est GFR (MDRD) Non-Af 128, BUN/Creatinine Ratio 3.1 L, Glucose 103, Calcium 8.2 L Micro: Microbiology 09/02/22 22:40 Stool Stool Lactoferrin - Final 09/02/22 22:40 Stool Enteric Bacteriology - Final 09/02/22 22:40 Stool C. difficile DNA Amplification - Final Physical Exam Narrative General: Alert, Oriented x3, Cooperative, No apparent distress HEENT: Atraumatic, PERRLA, EOMI, Normocephalic Oral: Moist Mucosa Neck: Supple, No JVD Lungs: Diminished, Normal air movement, No rhonchi, No wheeze, No rales Cardiovascular: Regular rate, Regular Rhythm, Normal S1, Normal S2, No murmurs Abdomen: Soft, Non Tender, Non-Distended, No Hepato-splenomegaly Extremities: No edema, Capillary Refill Less than 3 Seconds Skin: No rashes, No breakdown Musculoskeletal: No Tenderness to Palpation of Joints or Extremities Neurological: Cranial nerves II-XII grossly intact, Motor Exam 5/5 strength throughout, Sensory exam intact to light touch and pain Psych/Mental Status: Normal Affect, Appropriate Assessment & Plan Assessment/Plan (1) Acute blood loss anemia: (2) Bloody diarrhea: (3) Chest pain: PLAN: Plan #Rectal bleeding with acute on chronic anemia and hypotension/non-STEMI type II with a history of CAD status post stents/HTN/HLD * admitted with a complaints of rectal bleeding. * had colonoscopy which showed diverticulosis in the recto sigmoid colon, sigmoid, descending colon and at the splenic flexure and transverse colon; 2 bleeding colonic angiodysplastic lesions which were treated argon plasma coagulation. * GI on board * Will give him another dose of IV iron and repeat hemoglobin in the morning * Will start him on a cardiac diet as it does not appear that he is bleeding anymore and see how he tolerates * PT and OT evaluated and did not feel as needed SNF * Transfused 2 units of PRBCs * Heart cath demonstrates coronary artery disease, with previous stents showing mild in-stent stenoses within the LAD and then a totally occluded left circumflex artery and a diffuse disease of the right coronary artery * on statin, atenolol. Aspirin and plavix on hold. * 2D echo showed EF of 50% with mild segmental systolic dysfunction. Records requested from [facility] * Appreciate cardiology's assistance, will restart Plavix by itself in about a week #Acute alcohol withdrawal * patient has a history of heavy alcohol use, and drinks 4-6 drinks daily. * alcohol withdrawal protocol with ativan. * on folic acid, thiamine and multivitamin. DVT: SCDs Charges/Coding Visit Charges Inpatient E&M: 26115 Subs Hosp L2 09/08/22 1614 <Electronically signed by Obdulio Crespo MD> Cosigner Signature (if applicable): CC: ~ Signed [facility] Work Phone: [phone] Progress note Author Ahmet Friend [facility] September 07, 2022 7:30pm Note Date/Time September 07, 2022 7:30pm [facility] Medical Records Department [address] [place] [address] Progress Note 09/07/221928 MR#: [id number] Acct: [id number] Name: NAZARIO HUTTON Rep #:[id number] : 1950 71 From: Ahmet Friend PCP: Dr. Valeriano Beasley MD Status:ADM IN Location: [place] [id number] Subjective Subjective Patient did have a bloody bowel movement today. He denies any abdominal pain. He has been on a liquid diet. Objective Data Objective Data Vital Signs: Vital Signs Temp Pulse Resp BP Pulse Ox O2 Del Method O2 Flow Rate 98.7 F 79 18 131/75 H 100 Room Air 2 09/07/22 14:00 09/07/22 14:00 09/07/22 14:00 09/07/22 14:00 09/07/22 14:00 09/07/22 14:00 09/04/22 17:45 Oxygen Flow Rate (L/min) 2 Oxygen Delivery Method Room Air Weight: 196 lb 13.965 oz Body Mass Index (BMI) 26.9 Intake & Output: Intake and Output for Last 24 Hours 09/05/22 09/06/22 09/07/22 23:59 23:59 23:59 Intake Total 3291.17 / 3291.17 2590.00 / 2590.00 2566.25 / 2566.25 Balance 3291.17 / 3291.17 2590.00 / 2590.00 2566.25 / 2566.25 Lab / Micro Data Result Diagrams: 09/07/22 13:05 09/07/22 06:31 Labs: Laboratory Results - last 24 hr 09/07/22 06:31: WBC 6.4, RBC 2.31 L, Hgb 7.4 L, Hct 23.4 L, MCV 101.3 H, MCH 32.0, MCHC 31.6 L, RDW Std Deviation 66.8 H, RDW Coeff of Dorie 18.3 H, Plt Count 165, MPV 10.1, Immature Gran % (Auto) 0.600, Neut % (Auto) 69.9, Lymph % (Auto) 8.5 L, [place] % (Auto) 11.9 H, Eos % (Auto) 8.6 H, Baso % (Auto) 0.5, Absolute Neuts (auto) 4.5, Absolute Lymphs (auto) 0.54 L, Nucleated RBC % 0, DifferentialComment SCANNED, Anisocytosis 1+, Macrocytosis 1+ 09/07/22 06:31: Sodium 145, Potassium 3.3 L, Chloride 116 H, Carbon Dioxide 24.0, Anion Gap 5, BUN 2 L, Creatinine 0.60 L, Estim Creat Clear Calc 69.96, EstGFR (MDRD) Af Amer 172, Est GFR (MDRD) Non-Af 142, BUN/Creatinine Ratio 3.4 L, Glucose 91, Calcium 7.7 L 09/07/22 13:05: Hgb 8.3 L Micro: Microbiology 09/02/22 22:40 Stool Stool Lactoferrin - Final 09/02/22 22:40 Stool Enteric Bacteriology - Final 09/02/22 22:40 Stool C. difficile DNA Amplification - Final Physical Exam Narrative General: Alert, Oriented x3, Cooperative, No apparent distress HEENT: Atraumatic, PERRLA, EOMI, Normocephalic Oral: Moist Mucosa Neck: Supple, No JVD Lungs: Diminished, Normal air movement, No rhonchi, No wheeze, No rales Cardiovascular: Regular rate, Regular Rhythm, Normal S1, Normal S2, No murmurs Abdomen: Soft, Non Tender, Non-Distended, No Hepato-splenomegaly Extremities: No edema, Capillary Refill Less than 3 Seconds Skin: No rashes, No breakdown Musculoskeletal: No Tenderness to Palpation of Joints or Extremities Neurological: Cranial nerves II-XII grossly intact, Motor Exam 5/5 strength throughout, Sensory exam intact to light touch and pain Psych/Mental Status: Normal Affect, Appropriate Assessment & Plan Assessment/Plan (1) NSTEMI (non-ST elevated myocardial infarction): PLAN: Non-ST segment elevation SD treated with heparin over the weekend and developed recurrent lower GI bleeding secondary to diverticular bleeding that was treated endoscopically. Recommending to hold antiplatelet therapy for at least a week. (2) Bloody diarrhea: PLAN: The Patient underwent 2 colonoscopies for recurrent GI bleeding secondary to status post endoscopic treatment. His hemoglobin is currently 10.1 and holding steady. Most diverticular bleeds will heal on its own without anticoagulation or antiplatelet therapy. This usually is 80% at will stop and 20% will not stop. He has not bled in 24 hours. His vitals are stable. (3) Acute blood loss anemia: PLAN: Monitor H&H every 6 hours. He is okay to have a liquid diet. I will givehim an iron transfusion today and he should have one tomorrow if he is going to be discharged tomorrow. His hemoglobin went back up from 7.4-8.3. If his hemoglobin continues to be stable he can be DC'd from a GI standpoint. Charges/Coding Visit Charges Inpatient E&M: 95282 Subs Hosp L3 09/07/221929 <Electronically signed by Ahmet Chacon DO> Ahmet Chacon DO Cosigner Signature (if applicable): CC: ~ Signed [facility] Work Phone: [phone] Crespo [facility] September 07, 2022 12:54pm Note Date/Time September 07, 2022 12:54pm [facility] Medical Records Department [address] [place] [address] Progress Note - Hospitalist 09/07/22 1251 MR#: [id number] Acct: [id number] Name: NAZARIO HUTTON Rep #:[id number] : 1950 71 From: Obdulio goyal MD PCP: Dr. Valeriano Beasley MD Status:ADM IN Location: [place] [address] Reason for Visit Reason for Visit: Diagnoses Acute posthemorrhagic anemia (09/02/22) Non-ST elevation (NSTEMI) myocardial infarction (09/02/22) Chest pain, unspecified (09/02/22) Diarrhea, unspecified (09/02/22) Personal history of other diseases of the circulatory system (09/02/22) Subjective Subjective No issues overnight, hemoglobin dropped to 7.4. According to nursing he did have a bowel movement today that had some clots Objective Data Objective Data Vital Signs: Vital Signs Temp Pulse Resp BP Pulse Ox O2 Del Method O2 Flow Rate 98.5 F 69 16 121/76 H 95 Room Air 2 09/07/22 08:00 09/07/22 08:00 09/07/22 08:00 09/07/22 08:00 09/07/22 08:00 09/07/22 10:00 09/04/22 17:45 Oxygen Flow Rate (L/min) 2 Oxygen Delivery Method Room Air Weight: 196 lb 13.965 oz Body Mass Index (BMI) 26.9 Intake & Output: Intake and Output for Last 24 Hours 09/06/22 09/07/22 09/08/22 03:59 03:59 03:59 Intake Total 3884.92 / 3884.92 2902.50 / 2902.50 50 / 50 Balance 3884.92 / 3884.92 2902.50 / 2902.50 50 / 50 Lab / Micro Data Result Diagrams: 09/07/22 06:31 09/07/22 06:31 Labs: Laboratory Results - last 24 hr 09/06/22 16:20: Hgb 9.3 L, Hct 28.7 L 09/07/22 06:31: WBC 6.4, RBC 2.31 L, Hgb 7.4 L, Hct 23.4 L, MCV 101.3 H, MCH 32.0, MCHC 31.6 L, RDW Std Deviation 66.8 H, RDW Coeff of Dorie 18.3 H, Plt Count 165, MPV 10.1, Immature Gran % (Auto) 0.600, Neut % (Auto) 69.9, Lymph % (Auto) 8.5 L, [place] % (Auto) 11.9 H, Eos % (Auto) 8.6 H, Baso % (Auto) 0.5, Absolute Neuts (auto) 4.5, Absolute Lymphs (auto) 0.54 L, Nucleated RBC % 0, DifferentialComment SCANNED, Anisocytosis 1+, Macrocytosis 1+ 09/07/22 06:31: Sodium 145, Potassium 3.3 L, Chloride 116 H, Carbon Dioxide 24.0, Anion Gap 5, BUN 2 L, Creatinine 0.60 L, Estim Creat Clear Calc 69.96, EstGFR (MDRD) Af Amer 172, Est GFR (MDRD) Non-Af 142, BUN/Creatinine Ratio 3.4 L, Glucose 91, Calcium 7.7 L Micro: Microbiology 09/02/22 22:40 Stool Stool Lactoferrin - Final 09/02/22 22:40 Stool Enteric Bacteriology - Final 09/02/22 22:40 Stool C. difficile DNA Amplification - Final Physical Exam Narrative General: Alert, Oriented x3, Cooperative, No apparent distress HEENT: Atraumatic, PERRLA, EOMI, Normocephalic Oral: Moist Mucosa Neck: Supple, No JVD Lungs: Diminished, Normal air movement, No rhonchi, No wheeze, No rales Cardiovascular: Regular rate, Regular Rhythm, Normal S1, Normal S2, No murmurs Abdomen: Soft, Non Tender, Non-Distended, No Hepato-splenomegaly Extremities: No edema, Capillary Refill Less than 3 Seconds Skin: No rashes, No breakdown Musculoskeletal: No Tenderness to Palpation of Joints or Extremities Neurological: Cranial nerves II-XII grossly intact, Motor Exam 5/5 strength throughout, Sensory exam intact to light touch and pain Psych/Mental Status: Normal Affect, Appropriate Assessment & Plan Assessment/Plan (1) Acute blood loss anemia: (2) Bloody diarrhea: (3) Chest pain: PLAN: Plan #Rectal bleeding with acute on chronic anemia and hypotension/non-STEMI type II with a history of CAD status post stents/HTN/HLD * admitted with a complaints of rectal bleeding. * had colonoscopy which showed diverticulosis in the recto sigmoid colon, sigmoid, descending colon and at the splenic flexure and transverse colon; 2 bleeding colonic angiodysplastic lesions which were treated argon plasma coagulation. * GI on board * Will give him another dose of IV iron and repeat hemoglobin in the morning * Transfused 2 units of PRBCs * Heart cath demonstrates coronary artery disease, with previous stents showing mild in-stent stenoses within the LAD and then a totally occluded left circumflex artery and a diffuse disease of the right coronary artery * on statin, atenolol. Aspirin and plavix on hold. * 2D echo showed EF of 50% with mild segmental systolic dysfunction. Records requested from [facility] * Appreciate cardiology's assistance, will restart Plavix by itself in about a week #Acute alcohol withdrawal * patient has a history of heavy alcohol use, and drinks 4-6 drinks daily. * alcohol withdrawal protocol with ativan. * on folic acid, thiamine and multivitamin. DVT: SCDs Charges/Coding Visit Charges Inpatient E&M: 59031 Subs Hosp L2 09/07/22 1254 <Electronically signed by Obdulio Crespo MD> Cosigner Signature (if applicable): CC: ~ Signed [facility] Work Phone: [phone] Cuevas [facility] September 07, 2022 8:04am Note Date/Time September 07, 2022 8:03am [facility] Medical Records Department [address] [place] [address] Progress Note - Cardiology 09/07/22 0800 MR#: [id number] Acct: [id number] Name: NAZARIO HUTTON Rep #:[id number] : 1950 71 From: Lukas Cuevas MD PCP: Dr. Valeriano Beasley MD Status:ADM IN Location: [id number] Subjective Subjective Patient seen and evaluated. Objective Data Vital Signs: Vital Signs Temp Pulse Resp BP Pulse Ox O2 Del Method O2 Flow Rate 98.2 F 63 16 114/66 96 Room Air 2 09/07/22 04:30 09/07/22 04:30 09/07/22 04:30 09/07/22 04:30 09/07/22 04:30 09/07/22 04:43 09/04/22 17:45 Oxygen Flow Rate (L/min) 2 Oxygen Delivery Method Room Air Weight: 196 lb 13.965 oz Body Mass Index (BMI) 26.9 Intake & Output: Intake and Output for Last 24 Hours 09/05/22 09/06/22 09/07/22 23:59 23:59 23:59 Intake Total 3291.17 / 3291.17 2590.00 / 2590.00 956.25 / 956.25 Balance 3291.17 / 3291.17 2590.00 / 2590.00 956.25 / 956.25 Lab / Micro Data Result Diagrams: 09/07/22 06:31 09/07/22 06:31 Labs: Laboratory Results - last 24 hr 09/06/22 16:20: Hgb 9.3 L, Hct 28.7 L 09/07/22 06:31: WBC 6.4, RBC 2.31 L, Hgb 7.4 L, Hct 23.4 L, MCV 101.3 H, MCH 32.0, MCHC 31.6 L, RDW Std Deviation 66.8 H, RDW Coeff of Dorie 18.3 H, Plt Count 165, MPV 10.1, Immature Gran % (Auto) 0.600, Neut % (Auto) 69.9, Lymph % (Auto) 8.5 L, [place] % (Auto) 11.9 H, Eos % (Auto) 8.6 H, Baso % (Auto) 0.5, Absolute Neuts (auto) 4.5, Absolute Lymphs (auto) 0.54 L, Nucleated RBC % 0, DifferentialComment SCANNED, Anisocytosis 1+, Macrocytosis 1+ 09/07/22 06:31: Sodium 145, Potassium 3.3 L, Chloride 116 H, Carbon Dioxide 24.0, Anion Gap 5, BUN 2 L, Creatinine 0.60 L, Estim Creat Clear Calc 69.96, EstGFR (MDRD) Af Amer 172, Est GFR (MDRD) Non-Af 142, BUN/Creatinine Ratio 3.4 L, Glucose 91, Calcium 7.7 L Cardiology Labs/Tests 09/06/22 16:20: Hgb 9.3 L, Hct 28.7 L 09/07/22 06:31: WBC 6.4, RBC 2.31 L, Hgb 7.4 L, Hct 23.4 L, MCV 101.3 H, MCH 32.0, MCHC 31.6 L, Plt Count 165, MPV 10.1, Immature Gran % (Auto) 0.600, Neut % (Auto) 69.9, Lymph % (Auto) 8.5 L, [place] % (Auto) 11.9 H, Eos % (Auto) 8.6 H, Baso % (Auto) 0.5, Absolute Neuts (auto) 4.5, Nucleated RBC % 0 09/07/22 06:31: Sodium 145, Potassium 3.3 L, Chloride 116 H, Carbon Dioxide 24.0, Anion Gap 5, BUN 2 L, Creatinine 0.60 L, Est GFR (MDRD) Af Amer 172, Est GFR (MDRD) Non-Af 142, BUN/Creatinine Ratio 3.4 L, Glucose 91, Calcium 7.7 L Rhythm: EKG: ECHO: Stress Test: Cardiac Cath: PCI: CT Surgery: Holter monitor: EPS: PPM: CXR: Chest CT Scan: Physical Exam Const alert and oriented x3 Constitutional Narrative: anxious, tearful HEENT head/scalp atraumatic, moist oral mucous membranes and oropharynx normal Head and Scalp: normocephalic Mouth: dry mucous membranes Eyes PERRL, EOMs intact bilaterally and conjunctivae normal Neck no lymphadenopathy and supple Resp normal respiratory effort, no retractions, no use of accessory muscles and clearto auscultation bilaterally Cardio regular rate, regular rhythm, S1 normal heart sound, S2 normal heart sound and no murmurs GI normal to inspection, nondistended, normoactive bowel sounds, soft to palpation,non-tender and non-distended Extremity normal to inspection, full ROM and no clubbing, cyanosis or edema Neuro oriented x3, CN's II-XII intact bilaterally, moves all extremities and no focal motor deficits Sensorium / Orientation: awake and alert Motor Exam: strength 5/5 throughout Psych Mood & Affect: anxious Assessment & Plan Assessment/Plan (1) NSTEMI (non-ST elevated myocardial infarction): PLAN: Patient presented with anemia and chest discomfort and is noted now to have a non-ST elevation myocardial infarction. The above is likely a type II event from demand ischemia. He does have known coronary artery disease . Cardiac catheterization demonstrated the following: Left main coronary artery without significant disease. Left anterior descending artery previously stented with mild in-stent stenosis and then diffuse distal disease up to about 80%. Left circumflex artery which is totally occluded in the proximal segment and fills via left to left and right to left collaterals. Right coronary artery previously stented with diffuse disease and moderate in- stent stenosis and distal diffuse disease of 50% and right to left collaterals filling the distal LAD as well as the distal circumflex artery Mild left ventricular systolic dysfunction with hypokinesis of the anterior apical wall. Based on the above angiographic findings I would recommend continued medical therapy. We will recommend holding off on antiplatelet agents for at least 10 days. If restarted will restart Plavix only. Then add aspirin. His stent was over 6 months old. (2) History of hypertension: PLAN: He does have a history of hypertension his blood pressure is under good control no changes to be made we will continue with current therapy. Thank you for allowing me to participate in the care of your patient. Please don't hesitate to call if any issues arise. 09/07/22 0804 <Electronically signed by Lukas Cuevas MD> Cosigner Signature (if applicable): CC: ~ Signed [facility] Work Phone: [phone] Progress note Author Ahmet Friend [facility] September 06, 2022 7:35pm Note Date/Time September 06, 2022 7:35pm [facility] Medical Records Department [address] [place] [address] Progress Note 09/06/221932 MR#: [id number] Acct: [id number] Name: NAZARIO HUTTON Rep #:[id number] : 1950 71 From: Ahmet Friend DO PCP: Dr. Valeriano Beasley MD Status:ADM IN Location: [facility] [id number]- [id number] Subjective Subjective Patient underwent cardiac catheterization today. No new stents were placed in his coronary arteries today. Blood thinners are still currently being held. Hehas not had a bowel movement yet. Objective Data Objective Data Vital Signs: Vital Signs Temp Pulse Resp BP Pulse Ox O2 Del Method O2 Flow Rate 96.8 F L 42 L 16 100/73 95 Nasal Cannula 2 09/06/22 14:48 09/06/22 14:48 09/06/22 14:48 09/06/22 14:48 09/06/22 14:48 09/06/22 14:48 09/04/22 17:45 Oxygen Flow Rate (L/min) 2 Oxygen Delivery Method Nasal Cannula Weight: 197 lb 1.492 oz Body Mass Index (BMI) 26.9 Intake & Output: Intake and Output for Last 24 Hours 09/04/22 09/05/22 09/06/22 23:59 23:59 23:59 Intake Total 6464.56 / 6464.56 3291.17 / 3291.17 1690.00 / 1690.00 Balance 6464.56 / 6464.56 3291.17 / 3291.17 1690.00 / 1690.00 Lab / Micro Data Result Diagrams: 09/06/22 16:20 09/06/22 06:00 Labs: Laboratory Results - last 24 hr 09/06/22 06:00: WBC 7.2, RBC 2.46 L, Hgb 8.0 L, Hct 24.3 L, MCV 98.8 H, MCH 32.5H, MCHC 32.9, RDW Std Deviation 67.3 H, RDW Coeff of Dorie 18.7 H, Plt Count 136 L, MPV 9.9, Immature Gran % (Auto) 0.600, Neut % (Auto) 69.2, Lymph % (Auto) 10.6L, [place] % (Auto) 10.7 H, Eos % (Auto) 8.5 H, Baso % (Auto) 0.4, Absolute Neuts (auto) 5.0, Absolute Lymphs (auto) 0.76 L, Nucleated RBC % 0, Differential Comment SCANNED, Anisocytosis 1+, Microcytosis 1+ 09/06/22 06:00: Sodium 144, Potassium 3.3 L, Chloride 116 H, Carbon Dioxide 22.0, Anion Gap 6, BUN 3 L, Creatinine 0.66 L, Estim Creat Clear Calc 69.96, EstGFR (MDRD) Af Amer 152, Est GFR (MDRD) Non-Af 126, BUN/Creatinine Ratio 4.5 L, Glucose 93, Calcium 8.0 L 09/06/22 16:20: Hgb 9.3 L, Hct 28.7 L Micro: Microbiology 09/02/22 22:40 Stool Stool Lactoferrin - Final 09/02/22 22:40 Stool Enteric Bacteriology - Final 09/02/22 22:40 Stool C. difficile DNA Amplification - Final Physical Exam Narrative General: Alert, Oriented x3, Cooperative, No apparent distress HEENT: Atraumatic, PERRLA, EOMI, Normocephalic Oral: Moist Mucosa Neck: Supple, No JVD Lungs: Diminished, Normal air movement, No rhonchi, No wheeze, No rales Cardiovascular: Regular rate, Regular Rhythm, Normal S1, Normal S2, No murmurs Abdomen: Soft, Non Tender, Non-Distended, No Hepato-splenomegaly Extremities: No edema, Capillary Refill Less than 3 Seconds Skin: No rashes, No breakdown Musculoskeletal: No Tenderness to Palpation of Joints or Extremities Neurological: Cranial nerves II-XII grossly intact, Motor Exam 5/5 strength throughout, Sensory exam intact to light touch and pain Psych/Mental Status: Normal Affect, Appropriate Assessment & Plan Assessment/Plan (1) NSTEMI (non-ST elevated myocardial infarction): PLAN: Non-ST segment elevation SD treated with heparin over the weekend and developed recurrent lower GI bleeding secondary to diverticular bleeding that was treated endoscopically. Recommending to hold antiplatelet therapy for at least a week. (2) Bloody diarrhea: PLAN: The Patient underwent 2 colonoscopies for recurrent GI bleeding secondary to status post endoscopic treatment. His hemoglobin is currently 10.1 and holding steady. Most diverticular bleeds will heal on its own without anticoagulation or antiplatelet therapy. This usually is 80% at will stop and 20% will not stop. He has not bled in 24 hours. His vitals are stable. (3) Acute blood loss anemia: PLAN: Monitor H&H every 6 hours. He is okay to have a liquid diet. I will givehim an iron transfusion today and he should have one tomorrow if he is going to be discharged tomorrow. Charges/Coding Visit Charges Inpatient E&M: 41468 Subs Hosp L3 09/06/221934 <Electronically signed by Ahmet Friend DO> Ahmet Friend DO Cosigner Signature (if applicable): CC: ~ Signed [facility] Work Phone: [phone] Cuevas [facility] September 06, 2022 5:44pm Note Date/Time September 04, 2022 6:46pm [facility] Medical Records Department [address] [place] [address] Progress Note - Cardiology 09/04/22 1845 MR#: [id number] Acct: [id number] Name: NAZARIO HUTTON Rep #:[id number] : 1950 71 From: Lukas Cuevas MD PCP: Dr. Valeriano Beasley MD Status:ADM IN Location: [place] [address] Subjective Subjective Patient seen and evaluated. Events of this afternoon noted. Objective Data Vital Signs: Vital Signs Temp Pulse Resp BP Pulse Ox O2 Del Method O2 Flow Rate 98.2 F 68 14 154/88 H 96 Room Air 2 09/04/22 18:18 09/04/22 18:18 09/04/22 18:18 09/04/22 18:18 09/04/22 18:18 09/04/22 18:18 09/04/22 17:45 Oxygen Flow Rate (L/min) 2 Oxygen Delivery Method Room Air Weight: 194 lb 10.691 oz Body Mass Index (BMI) 26.9 Intake & Output: Intake and Output for Last 24 Hours 09/02/22 09/03/22 09/04/22 23:59 23:59 23:59 Intake Total 2703.34 / 3103.34 3010 / 3010 4149.98 / 4149.98 Balance 2703.34 / 3103.34 3010 / 3010 4149.98 / 4149.98 Lab / Micro Data Result Diagrams: 09/04/22 12:49 09/03/22 07:10 Labs: Laboratory Results - last 24 hr 09/02/22 16:35: Crossmatch See Detail 02/11/23 20:25: Troponin I High Sens 3730 H* 09/04/22 02:57: APTT 61.4 H 09/04/22 08:28: APTT 77.6 H 09/04/22 12:49: WBC 8.7, RBC 1.91 L, Hgb 6.9 L, Hct 21.0 L, MCV 109.9 H, MCH 36.1 H, MCHC 32.9, RDW Std Deviation 56.1 H, RDW Coeff of Dorie 14.2, Plt Count 166, MPV 10.3, Immature Gran % (Auto) 0.500, Neut % (Auto) 70.3 H, Lymph % (Auto) 12.1 L, [place] % (Auto) 11.5 H, Eos % (Auto) 5.1 H, Baso % (Auto) 0.5, Absolute Neuts (auto) 6.1, Absolute Lymphs (auto) 1.05, Nucleated RBC % 0 09/04/22 14:10: APTT 40.0 H 09/04/22 15:50: Crossmatch See Detail Cardiology Labs/Tests 09/04/22 02:57: APTT 61.4 H 09/04/22 08:28: APTT 77.6 H 09/04/22 12:49: WBC 8.7, RBC 1.91 L, Hgb 6.9 L, Hct 21.0 L, MCV 109.9 H, MCH 36.1 H, MCHC 32.9, Plt Count 166, MPV 10.3, Immature Gran % (Auto) 0.500, Neut %(Auto) 70.3 H, Lymph % (Auto) 12.1 L, [place] % (Auto) 11.5 H, Eos % (Auto) 5.1 H, Baso % (Auto) 0.5, Absolute Neuts (auto) 6.1, Nucleated RBC % 0 09/04/22 14:10: APTT 40.0 H Rhythm: EKG: ECHO: Stress Test: Cardiac Cath: PCI: CT Surgery: Holter monitor: EPS: PPM: CXR: Chest CT Scan: Assessment & Plan Assessment/Plan (1) NSTEMI (non-ST elevated myocardial infarction): PLAN: Patient presented with anemia and chest discomfort and is noted now to have a non-ST elevation myocardial infarction. The above is likely a type II event from demand ischemia. He does have known coronary artery disease and my recommendation would be to perform a cardiac catheterization and depending on the findings further recommendations will be made. At this time due to the recent events the plan will be to postpone this until heis fairly stabilized from the GI standpoint. All anticoagulants and antiplatelet agents to be discontinued. (2) History of hypertension: PLAN: He does have a history of hypertension his blood pressure is under good control no changes to be made we will continue with current therapy. Thank you for allowing me to participate in the care of your patient. Please don't hesitate to call if any issues arise. 09/06/224 <Electronically signed by Lukas Cuevas MD> Cosigner Signature (if applicable): CC: ~ Signed [facility] Work Phone: [phone] Crespo [facility] September 06, 2022 5:01pm Note Date/Time September 06, 2022 5:01pm [facility] Medical Records Department [address] [place] [address] Progress Note - Hospitalist 09/06/22 1656 MR#: [id number] Acct: [id number] Name: NAZARIO HUTTON Rep #:[id number] : 1950 71 From: Obdulio goyal MD PCP: Dr. Valeriano Beasley MD Status:ADM IN Location: [place] [address] Reason for Visit Reason for Visit: Diagnoses Acute posthemorrhagic anemia (09/02/22) Non-ST elevation (NSTEMI) myocardial infarction (09/02/22) Chest pain, unspecified (09/02/22) Diarrhea, unspecified (09/02/22) Personal history of other diseases of the circulatory system (09/02/22) Subjective Subjective The doing well, no issues overnight. Had his heart cath this morning with the recommendation for medical management Objective Data Objective Data Vital Signs: Vital Signs Temp Pulse Resp BP Pulse Ox O2 Del Method O2 Flow Rate 96.8 F L 42 L 16 100/73 95 Nasal Cannula 2 09/06/22 14:48 09/06/22 14:48 09/06/22 14:48 09/06/22 14:48 09/06/22 14:48 09/06/22 14:48 09/04/22 17:45 Oxygen Flow Rate (L/min) 2 Oxygen Delivery Method Nasal Cannula Weight: 197 lb 1.492 oz Body Mass Index (BMI) 26.9 Intake & Output: Intake and Output for Last 24 Hours 09/05/22 09/06/22 09/07/22 03:59 03:59 03:59 Intake Total 6464.56 / 6464.56 3884.92 / 3884.92 1046.25 / 1046.25 Balance 6464.56 / 6464.56 3884.92 / 3884.92 1046.25 / 1046.25 Lab / Micro Data Result Diagrams: 09/06/22 16:20 09/06/22 06:00 Labs: Laboratory Results - last 24 hr 09/05/22 17:23: Hgb 8.3 L, Hct 25.8 L 09/06/22 06:00: WBC 7.2, RBC 2.46 L, Hgb 8.0 L, Hct 24.3 L, MCV 98.8 H, MCH 32.5H, MCHC 32.9, RDW Std Deviation 67.3 H, RDW Coeff of Dorie 18.7 H, Plt Count 136 L, MPV 9.9, Immature Gran % (Auto) 0.600, Neut % (Auto) 69.2, Lymph % (Auto) 10.6L, [place] % (Auto) 10.7 H, Eos % (Auto) 8.5 H, Baso % (Auto) 0.4, Absolute Neuts (auto) 5.0, Absolute Lymphs (auto) 0.76 L, Nucleated RBC % 0, Differential Comment SCANNED, Anisocytosis 1+, Microcytosis 1+ 09/06/22 06:00: Sodium 144, Potassium 3.3 L, Chloride 116 H, Carbon Dioxide 22.0, Anion Gap 6, BUN 3 L, Creatinine 0.66 L, Estim Creat Clear Calc 69.96, EstGFR (MDRD) Af Amer 152, Est GFR (MDRD) Non-Af 126, BUN/Creatinine Ratio 4.5 L, Glucose 93, Calcium 8.0 L 09/06/22 16:20: Hgb 9.3 L, Hct 28.7 L Micro: Microbiology 09/02/22 22:40 Stool Stool Lactoferrin - Final 09/02/22 22:40 Stool Enteric Bacteriology - Final 09/02/22 22:40 Stool C. difficile DNA Amplification - Final Physical Exam Narrative General: Alert, Oriented x3, Cooperative, No apparent distress HEENT: Atraumatic, PERRLA, EOMI, Normocephalic Oral: Moist Mucosa Neck: Supple, No JVD Lungs: Diminished, Normal air movement, No rhonchi, No wheeze, No rales Cardiovascular: Regular rate, Regular Rhythm, Normal S1, Normal S2, No murmurs Abdomen: Soft, Non Tender, Non-Distended, No Hepato-splenomegaly Extremities: No edema, Capillary Refill Less than 3 Seconds Skin: No rashes, No breakdown Musculoskeletal: No Tenderness to Palpation of Joints or Extremities Neurological: Cranial nerves II-XII grossly intact, Motor Exam 5/5 strength throughout, Sensory exam intact to light touch and pain Psych/Mental Status: Normal Affect, Appropriate Assessment & Plan Assessment/Plan (1) Acute blood loss anemia: (2) Bloody diarrhea: (3) Chest pain: PLAN: Plan #Rectal bleeding with acute on chronic anemia and hypotension/non-STEMI type II with a history of CAD status post stents/HTN/HLD * admitted with a complaints of rectal bleeding. * had colonoscopy which showed diverticulosis in the recto sigmoid colon, sigmoid, descending colon and at the splenic flexure and transverse colon; 2 bleeding colonic angiodysplastic lesions which were treated argon plasma coagulation. * GI on board * Hemoglobin is up to 9.3 we will recheck in the morning * Transfused 2 units of PRBCs * Heart cath today demonstrates coronary artery disease, with previous stents showing mild in-stent stenoses within the LAD and then a totally occluded left circumflex artery and a diffuse disease of the right coronary artery * on statin, atenolol. Aspirin and plavix on hold. * 2D echo showed EF of 50% with mild segmental systolic dysfunction. Records requested from [facility] * cardiology on board #Acute alcohol withdrawal * patient has a history of heavy alcohol use, and drinks 4-6 drinks daily. * alcohol withdrawal protocol with ativan. * on folic acid, thiamine and multivite. DVT: SCDs Charges/Coding Visit Charges Inpatient E&M: 12646 Subs Hosp L2 09/06/22 1701 <Electronically signed by Obdulio Crespo MD> Cosigner Signature (if applicable): CC: ~ Signed [facility] Work Phone: [phone] Cuevas [facility] September 06, 2022 8:50am Note Date/Time September 06, 2022 8:50am [facility] Medical Records Department [address] [place] [address] Progress Note - Cardiology 09/06/22 0847 MR#: [id number] Acct: [id number] Name: NAZARIO HUTTON Rep #:[id number] : 1950 71 From: Lukas Cuevas MD PCP: Dr. Valeriano Beasley MD Status:ADM IN Location: [place] [address] Subjective Subjective Patient seen and evaluated. Patient underwent cardiac catheterization today. Objective Data Vital Signs: Vital Signs Temp Pulse Resp BP Pulse Ox O2 Del Method O2 Flow Rate 98 F 75 16 130/75 H 97 Room Air 2 09/06/22 06:32 09/06/22 06:32 09/06/22 06:32 09/06/22 06:32 09/06/22 06:32 09/06/22 08:25 09/04/22 17:45 Oxygen Flow Rate (L/min) 2 Oxygen Delivery Method Room Air Weight: 197 lb 1.492 oz Body Mass Index (BMI) 26.9 Intake & Output: Intake and Output for Last 24 Hours 09/04/22 09/05/22 09/06/22 23:59 23:59 23:59 Intake Total 6464.56 / 6464.56 3291.17 / 3291.17 661.25 / 661.25 Balance 6464.56 / 6464.56 3291.17 / 3291.17 661.25 / 661.25 Lab / Micro Data Result Diagrams: 09/06/22 06:00 09/06/22 06:00 Labs: Laboratory Results - last 24 hr 09/05/22 17:23: Hgb 8.3 L, Hct 25.8 L 09/06/22 06:00: WBC 7.2, RBC 2.46 L, Hgb 8.0 L, Hct 24.3 L, MCV 98.8 H, MCH 32.5H, MCHC 32.9, RDW Std Deviation 67.3 H, RDW Coeff of Dorie 18.7 H, Plt Count 136 L, MPV 9.9, Immature Gran % (Auto) 0.600, Neut % (Auto) 69.2, Lymph % (Auto) 10.6L, [place] % (Auto) 10.7 H, Eos % (Auto) 8.5 H, Baso % (Auto) 0.4, Absolute Neuts (auto) 5.0, Absolute Lymphs (auto) 0.76 L, Nucleated RBC % 0, Differential Comment SCANNED, Anisocytosis 1+, Microcytosis 1+ 09/06/22 06:00: Sodium 144, Potassium 3.3 L, Chloride 116 H, Carbon Dioxide 22.0, Anion Gap 6, BUN 3 L, Creatinine 0.66 L, Estim Creat Clear Calc 69.96, EstGFR (MDRD) Af Amer 152, Est GFR (MDRD) Non-Af 126, BUN/Creatinine Ratio 4.5 L, Glucose 93, Calcium 8.0 L Cardiology Labs/Tests 09/05/22 17:23: Hgb 8.3 L, Hct 25.8 L 09/06/22 06:00: WBC 7.2, RBC 2.46 L, Hgb 8.0 L, Hct 24.3 L, MCV 98.8 H, MCH 32.5H, MCHC 32.9, Plt Count 136 L, MPV 9.9, Immature Gran % (Auto) 0.600, Neut % (Auto) 69.2, Lymph % (Auto) 10.6 L, [place] % (Auto) 10.7 H, Eos % (Auto) 8.5 H, Baso % (Auto) 0.4, Absolute Neuts (auto) 5.0, Nucleated RBC % 0 09/06/22 06:00: Sodium 144, Potassium 3.3 L, Chloride 116 H, Carbon Dioxide 22.0, Anion Gap 6, BUN 3 L, Creatinine 0.66 L, Est GFR (MDRD) Af Amer 152, Est GFR (MDRD) Non-Af 126, BUN/Creatinine Ratio 4.5 L, Glucose 93, Calcium 8.0 L Rhythm: EKG: ECHO: Stress Test: Cardiac Cath: PCI: CT Surgery: Holter monitor: EPS: PPM: CXR: Chest CT Scan: Physical Exam Const alert and oriented x3 Constitutional Narrative: anxious, tearful HEENT head/scalp atraumatic, moist oral mucous membranes and oropharynx normal Head and Scalp: normocephalic Mouth: dry mucous membranes Eyes PERRL, EOMs intact bilaterally and conjunctivae normal Neck no lymphadenopathy and supple Resp normal respiratory effort, no retractions, no use of accessory muscles and clearto auscultation bilaterally Cardio regular rate, regular rhythm, S1 normal heart sound, S2 normal heart sound and no murmurs GI normal to inspection, nondistended, normoactive bowel sounds, soft to palpation,non-tender and non-distended Extremity normal to inspection, full ROM and no clubbing, cyanosis or edema Neuro oriented x3, CN's II-XII intact bilaterally, moves all extremities and no focal motor deficits Sensorium / Orientation: awake and alert Motor Exam: strength 5/5 throughout Psych Mood & Affect: anxious Assessment & Plan Assessment/Plan (1) NSTEMI (non-ST elevated myocardial infarction): PLAN: Patient presented with anemia and chest discomfort and is noted now to have a non-ST elevation myocardial infarction. The above is likely a type II event from demand ischemia. He does have known coronary artery disease . Cardiac catheterization demonstrated the following: Left main coronary artery without significant disease. Left anterior descending artery previously stented with mild in-stent stenosis and then diffuse distal disease up to about 80%. Left circumflex artery which is totally occluded in the proximal segment and fills via left to left and right to left collaterals. Right coronary artery previously stented with diffuse disease and moderate in- stent stenosis and distal diffuse disease of 50% and right to left collaterals filling the distal LAD as well as the distal circumflex artery Mild left ventricular systolic dysfunction with hypokinesis of the anterior apical wall. Based on the above angiographic findings I would recommend continued medical therapy. We will discuss with GI as to the appropriate timing for resumption of antiplatelet agents. May consider clopidogrel only without aspirin. (2) History of hypertension: PLAN: He does have a history of hypertension his blood pressure is under good control no changes to be made we will continue with current therapy. Thank you for allowing me to participate in the care of your patient. Please don't hesitate to call if any issues arise. 09/06/22 6211 <Electronically signed by Lukas Cuevas MD> Cosigner Signature (if applicable): CC: ~ Signed [facility] Work Phone: [phone] Progress note Author Ahmet Friend [facility] September 05, 2022 5:31pm Note Date/Time September 05, 2022 5:23pm [facility] Medical Records Department [address] [place] [address] Progress Note 09/05/22 1722 MR#: [id number] Acct: [id number] Name: NAZARIO HUTTON Rep #:[id number] : 1950 71 From: Ahmet Chacon DO PCP: Dr. Valeriano Beasley MD Status:ADM IN Location: [address] Subjective Subjective Patient underwent to colonoscopy this weekend for recurrent diverticular bleeding. He has not had any bleeding today. His blood pressure has been stable. He denies any abdominal pain, bloating or cramping. Objective Data Objective Data Vital Signs: Vital Signs Temp Pulse Resp BP Pulse Ox O2 Del Method O2 Flow Rate 98.6 F 67 16 131/65 H 95 Room Air 2 09/05/22 15:20 09/05/22 15:20 09/05/22 15:20 09/05/22 15:20 09/05/22 15:20 09/05/22 15:20 09/04/22 17:45 Oxygen Flow Rate (L/min) 2 Oxygen Delivery Method Room Air Weight: 196 lb 10.437 oz Body Mass Index (BMI) 26.9 Intake & Output: Intake and Output for Last 24 Hours 09/03/22 09/04/22 09/05/22 23:59 23:59 23:59 Intake Total 3010 / 3010 6464.56 / 6464.56 2890.67 / 2890.67 Balance 3010 / 3010 6464.56 / 6464.56 2890.67 / 2890.67 Lab / Micro Data Result Diagrams: 09/04/22 18:30 09/03/22 07:10 Labs: Laboratory Results - last 24 hr 09/02/22 16:35: Crossmatch See Detail 09/04/22 15:50: Crossmatch See Detail 02/12/23 18:30: WBC 10.8, RBC 3.17 L, Hgb 10.1 L, Hct 31.7 L, MCV 100.0 H D, MCH31.9, MCHC 31.9 L, RDW Std Deviation 65.4 H, RDW Coeff of Dorie 17.9 H, Plt Count 148 L, MPV 10.9, Differential Comment SCANNED Micro: Microbiology 09/02/22 22:40 Stool Stool Lactoferrin - Final 09/02/22 22:40 Stool Enteric Bacteriology - Final 09/02/22 22:40 Stool C. difficile DNA Amplification - Final Physical Exam Narrative General: Alert, Oriented x3, Cooperative, No apparent distress HEENT: Atraumatic, PERRLA, EOMI, Normocephalic Oral: Moist Mucosa Neck: Supple, No JVD Lungs: Diminished, Normal air movement, No rhonchi, No wheeze, No rales Cardiovascular: Regular rate, Regular Rhythm, Normal S1, Normal S2, No murmurs Abdomen: Soft, Non Tender, Non-Distended, No Hepato-splenomegaly Extremities: No edema, Capillary Refill Less than 3 Seconds Skin: No rashes, No breakdown Musculoskeletal: No Tenderness to Palpation of Joints or Extremities Neurological: Cranial nerves II-XII grossly intact, Motor Exam 5/5 strength throughout, Sensory exam intact to light touch and pain Psych/Mental Status: Normal Affect, Appropriate Assessment & Plan Assessment/Plan (1) NSTEMI (non-ST elevated myocardial infarction): PLAN: Non-ST segment elevation SD treated with heparin over the weekend and developed recurrent lower GI bleeding secondary to diverticular bleeding that was treated endoscopically. (2) Bloody diarrhea: PLAN: The Patient underwent 2 colonoscopies for recurrent GI bleeding secondary to status post endoscopic treatment. His hemoglobin is currently 10.1 and holding steady. Most diverticular bleeds will heal on its own without anticoagulation or antiplatelet therapy. This usually is 80% at will stop and 20% will not stop. He has not bled in 24 hours. His vitals are stable. (3) Acute blood loss anemia: PLAN: Monitor H&H every 6 hours. He is okay to have a liquid diet. Charges/Coding Visit Charges Inpatient E&M: 28260 Subs Hosp L3 09/05/22 8492 <Electronically signed by Ahmet Friend DO> Ahmet Friend DO Cosigner Signature (if applicable): CC: ~ Signed [facility] Work Phone: [phone]) 245-637502-13-[address] Crespo [facility] September 05, 2022 4:23pm Note Date/Time September 05, 2022 4:23pm [facility] Medical Records Department [address] [place] [address] Progress Note - Hospitalist 09/05/22 1618 MR#: [id number] Acct: [id number] Name: NAZARIO HUTTON Rep #:[id number] : 1950 71 From: Obdulio goyal MD PCP: Dr. Valeriano Beasley MD Status:ADM IN Location: [place] [address] Reason for Visit Reason for Visit: Diagnoses Acute posthemorrhagic anemia (09/02/22) Non-ST elevation (NSTEMI) myocardial infarction (09/02/22) Chest pain, unspecified (09/02/22) Diarrhea, unspecified (09/02/22) Personal history of other diseases of the circulatory system (09/02/22) Subjective Subjective No issues overnight, doing well Objective Data Objective Data Vital Signs: Vital Signs Temp Pulse Resp BP Pulse Ox O2 Del Method O2 Flow Rate 98.6 F 67 16 131/65 H 95 Room Air 2 09/05/22 15:20 09/05/22 15:20 09/05/22 15:20 09/05/22 15:20 09/05/22 15:20 09/05/22 15:20 09/04/22 17:45 Oxygen Flow Rate (L/min) 2 Oxygen Delivery Method Room Air Weight: 196 lb 10.437 oz Body Mass Index (BMI) 26.9 Intake & Output: Intake and Output for Last 24 Hours 09/04/22 09/05/22 09/06/22 03:59 03:59 03:59 Intake Total 2610 / 2610 6464.56 / 6464.56 2434.42 / 2434.42 Balance 2610 / 2610 6464.56 / 6464.56 2434.42 / 2434.42 Lab / Micro Data Result Diagrams: 09/04/22 18:30 09/03/22 07:10 Labs: Laboratory Results - last 24 hr 09/02/22 16:35: Crossmatch See Detail 09/04/22 15:50: Crossmatch See Detail 09/04/22 18:30: WBC 10.8, RBC 3.17 L, Hgb 10.1 L, Hct 31.7 L, MCV 100.0 H D, MCH31.9, MCHC 31.9 L, RDW Std Deviation 65.4 H, RDW Coeff of Dorie 17.9 H, Plt Count 148 L, MPV 10.9, Differential Comment SCANNED Micro: Microbiology 09/02/22 22:40 Stool Stool Lactoferrin - Final 09/02/22 22:40 Stool Enteric Bacteriology - Final 09/02/22 22:40 Stool C. difficile DNA Amplification - Final Physical Exam Narrative General: Alert, Oriented x3, Cooperative, No apparent distress HEENT: Atraumatic, PERRLA, EOMI, Normocephalic Oral: Moist Mucosa Neck: Supple, No JVD Lungs: Diminished, Normal air movement, No rhonchi, No wheeze, No rales Cardiovascular: Regular rate, Regular Rhythm, Normal S1, Normal S2, No murmurs Abdomen: Soft, Non Tender, Non-Distended, No Hepato-splenomegaly Extremities: No edema, Capillary Refill Less than 3 Seconds Skin: No rashes, No breakdown Musculoskeletal: No Tenderness to Palpation of Joints or Extremities Neurological: Cranial nerves II-XII grossly intact, Motor Exam 5/5 strength throughout, Sensory exam intact to light touch and pain Psych/Mental Status: Normal Affect, Appropriate Assessment & Plan Assessment/Plan (1) Acute blood loss anemia: (2) Bloody diarrhea: (3) Chest pain: PLAN: Plan #Rectal bleeding with acute on chronic anemia and hypotension/non-STEMI type II with a history of CAD status post stents/HTN/HLD * admitted with a complaints of rectal bleeding. * Hb was 7.8 this morning; * had colonoscopy which showed diverticulosis in the recto sigmoid colon, sigmoid, descending colon and at the splenic flexure and transverse colon; 2 bleeding colonic angiodysplastic lesions which were treated argon plasma coagulation. * GI on board * Hb dropped to 6.9 after he started having profuse rectal bleeding again today. He was started on heparin drip last night o/a of nonstemi; cardiology had wanted to hold off on anticoagulants as patient wasnt having chest pain. family was however quite insistent on patient being started on heparin and plavix. We will remain off anti-coagulation at this time * Transfused 2 units of PRBCs, hemoglobin is stable * No plans for heart cath today, can advance his diet and make him n.p.o. after midnight for possible heart cath * GI informed, will come re-evaluate patient. * on statin, atenolol. Aspirin and plavix on hold. * 2D echo showed EF of 50% with mild segmental systolic dysfunction. Records requested from [facility] * cardiology on board #Acute alcohol withdrawal * patient has a history of heavy alcohol use, and drinks 4-6 drinks daily. * alcohol withdrawal protocol with ativan. * on folic acid, thiamine and multivite. DVT: SCDs Charges/Coding Visit Charges Inpatient E&M: 24099 Subs Hosp L2 09/05/22 1933 <Electronically signed by Obdulio Crespo MD> Cosigner Signature (if applicable): CC: ~ Signed [facility] Work Phone: 1(296) 780-344502-13-2023 History of Present illness Narrative* Ganesh White MA - 09/05/2022 2:31 PM EST Scan on 09/04/2022 5:29 PM by External Provider: EGD Scan on 09/04/2022 5:41 PM by External Provider: Colonoscopy Scan on 09/04/2022 5:42 PM by External Provider: Colonoscopy Please review. Ganesh White [facility] History of Present illness Narrative* Ganesh White MA - 09/05/2022 2:29 PM EST Scan on 09/04/2022 9:46 AM by External Provider: Consultation - Emergency Medicine Ganesh White MA [facility] History of Past illness Narrative* Problem [...] of this encounter (statuses as of 04/21/2023) [facility] of Past illness Narrative* Problem [...] of this encounter (statuses as of 05/19/2023) [facility] of Past illness Narrative* Problem [...] of this encounter (statuses as of 06/01/2023) [facility] of Past illness Narrative* Problem [...] of this encounter (statuses as of 08/25/2023) [facility] of Past illness Narrative* Problem [...] of this encounter (statuses as of 08/25/2023) [facility] of Past illness Narrative* Problem [...] of this encounter (statuses as of 08/29/2023) [facility] of Past illness Narrative* Problem [...] of this encounter (statuses as of 09/01/2023) [facility] of Past illness Narrative* Problem [...] of this encounter (statuses as of 09/04/2023) [facility] of Past illness Narrative* Problem [...] of this encounter (statuses as of 09/06/2023) [facility] illness Narrative* Problem [...] of this encounter (statuses as of 09/07/2023) [facility] of Past illness Narrative* Problem [...] of this encounter (statuses as of 09/26/2023) [facility] of Past illness Narrative* Problem [...] as of this encounter (statuses as of 09/29/2023) [facility] Past illness Narrative* Problem [...] as of this encounter (statuses as of 10/04/2023) [facility] Narrative* Problem [...] as of this encounter (statuses as of 10/14/2023) [facility] Past illness Narrative* Problem [...] as of this encounter (statuses as of 10/17/2023) [facility] illness Narrative* Problem [...] as of this encounter (statuses as of 10/17/2023) [facility] of Past illness Narrative* Problem [...] as of this encounter (statuses as of 10/17/2023) [facility] Cuevas [facility] September 05, 2022 7:07am Note Date/Time September 05, 2022 7:07am [facility] Medical Records Department [address] [place] [address] Progress Note - Cardiology 09/05/22705 MR#: [id number] Acct: [id number] Name: NAZARIO HUTTON Rep #:[id number] : 1950 71 From: Lukas Cuevas MD PCP: Dr. Valeriano Beasley MD Status:ADM IN Location: [place] [address]- Subjective Subjective Patient seen and evaluated. Appears to be stable overnight. Objective Data Vital Signs: Vital Signs Temp Pulse Resp BP Pulse Ox O2 Del Method O2 Flow Rate 98.6 F 64 18 121/70 H 96 Room Air 2 09/05/22 03:53 09/05/22 03:53 09/05/22 03:53 09/05/22 03:53 09/05/22 03:53 09/05/22 03:53 09/04/22 17:45 Oxygen Flow Rate (L/min) 2 Oxygen Delivery Method Room Air Weight: 196 lb 10.437 oz Body Mass Index (BMI) 26.9 Intake & Output: Intake and Output for Last 24 Hours 09/03/22 09/04/22 09/05/22 23:59 23:59 23:59 Intake Total 3010 / 3010 6464.56 / 6464.56 784.17 / 784.17 Balance 3010 / 3010 6464.56 / 6464.56 784.17 / 784.17 Lab / Micro Data Result Diagrams: 09/04/22 18:30 09/03/22 07:10 Labs: Laboratory Results - last 24 hr 09/02/22 16:35: Crossmatch See Detail 09/04/22 08:28: APTT 77.6 H 09/04/22 12:49: WBC 8.7, RBC 1.91 L, Hgb 6.9 L, Hct 21.0 L, MCV 109.9 H, MCH 36.1 H, MCHC 32.9, RDW Std Deviation 56.1 H, RDW Coeff of Dorie 14.2, Plt Count 166, MPV 10.3, Immature Gran % (Auto) 0.500, Neut % (Auto) 70.3 H, Lymph % (Auto) 12.1 L, [place] % (Auto) 11.5 H, Eos % (Auto) 5.1 H, Baso % (Auto) 0.5, Absolute Neuts (auto) 6.1, Absolute Lymphs (auto) 1.05, Nucleated RBC % 0 09/04/22 14:10: APTT 40.0 H 09/04/22 15:50: Crossmatch See Detail 09/04/22 18:30: WBC 10.8, RBC 3.17 L, Hgb 10.1 L, Hct 31.7 L, MCV 100.0 H D, MCH31.9, MCHC 31.9 L, RDW Std Deviation 65.4 H, RDW Coeff of Dorie 17.9 H, Plt Count 148 L, MPV 10.9, Differential Comment SCANNED Cardiology Labs/Tests 09/04/22 08:28: APTT 77.6 H 09/04/22 12:49: WBC 8.7, RBC 1.91 L, Hgb 6.9 L, Hct 21.0 L, MCV 109.9 H, MCH 36.1 H, MCHC 32.9, Plt Count 166, MPV 10.3, Immature Gran % (Auto) 0.500, Neut %(Auto) 70.3 H, Lymph % (Auto) 12.1 L, [place] % (Auto) 11.5 H, Eos % (Auto) 5.1 H, Baso % (Auto) 0.5, Absolute Neuts (auto) 6.1, Nucleated RBC % 0 09/04/22 14:10: APTT 40.0 H 09/04/22 18:30: WBC 10.8, RBC 3.17 L, Hgb 10.1 L, Hct 31.7 L, MCV 100.0 H D, MCH31.9, MCHC 31.9 L, Plt Count 148 L, MPV 10.9 Rhythm: EKG: ECHO: Stress Test: Cardiac Cath: PCI: CT Surgery: Holter monitor: EPS: PPM: CXR: Chest CT Scan: Physical Exam Const alert and oriented x3 Constitutional Narrative: anxious, tearful HEENT head/scalp atraumatic, moist oral mucous membranes and oropharynx normal Head and Scalp: normocephalic Mouth: dry mucous membranes Eyes PERRL, EOMs intact bilaterally and conjunctivae normal Neck no lymphadenopathy and supple Resp normal respiratory effort, no retractions, no use of accessory muscles and clearto auscultation bilaterally Cardio regular rate, regular rhythm, S1 normal heart sound, S2 normal heart sound and no murmurs GI normal to inspection, nondistended, normoactive bowel sounds, soft to palpation,non-tender and non-distended Extremity normal to inspection, full ROM and no clubbing, cyanosis or edema Neuro oriented x3, CN's II-XII intact bilaterally, moves all extremities and no focal motor deficits Sensorium / Orientation: awake and alert Motor Exam: strength 5/5 throughout Psych Mood & Affect: anxious Assessment & Plan Assessment/Plan (1) NSTEMI (non-ST elevated myocardial infarction): PLAN: Patient presented with anemia and chest discomfort and is noted now to have a non-ST elevation myocardial infarction. The above is likely a type II event from demand ischemia. He does have known coronary artery disease and my recommendation would be to perform a cardiac catheterization and depending on the findings further recommendations will be made. At this time due to the recent events the plan will be to postpone this until heis fairly stabilized from the GI standpoint. All anticoagulants and antiplatelet agents to be discontinued temporarily. (2) History of hypertension: PLAN: He does have a history of hypertension his blood pressure is under good control no changes to be made we will continue with current therapy. Thank you for allowing me to participate in the care of your patient. Please don't hesitate to call if any issues arise. 09/05/22 0707 <Electronically signed by Lukas Cuevas MD> Cosigner Signature (if applicable): CC: ~ Signed [facility] Work Phone: [phone]) 717-844502-12-[address] Corbin [facility] September 04, 2022 4:15pm Note Date/Time September 04, 2022 2:24pm [facility] Medical Records Department [address] [place] [address] Progress Note - Hospitalist 09/04/22 1419 MR#: [id number] Acct: [id number] Name: NAZARIO HUTTON Rep #:[id number] : 1950 71 From: Melissa Corbin MD PCP: Dr. Valeriano Beasley MD Status:ADM IN Location: [place] [address] Reason for Visit Reason for Visit: Diagnoses Acute posthemorrhagic anemia (09/02/22) Non-ST elevation (NSTEMI) myocardial infarction (09/02/22) Diarrhea, unspecified (09/02/22) Personal history of other diseases of the circulatory system (09/02/22) Subjective Subjective Patient seen and examined. He had no active complaints this morning. Patient was noted to have non-STEMI after he had the colonoscopy yesterday. His troponins trended upwards to a peak of over 3000. He was transferred to PCU. This was discussed with cardiology who opted to hold off on giving the patient any anticoagulant or any antiplatelet as patient was not having chest pain and also in light of his admission for lower GI bleed. On the evening of 09/03/2022,I was informed by patient's nurse that family was insistent that patient should be started on his Plavix and he also wanted him on heparin. Even though it was explained to the family that this could cause bleeding, there was still quite insistent about this. Patient was therefore started on heparin drip after discussion with cardiology and GI at 8 PM on 09/04/2022. On evaluation this morning patient had not had any GI bleed and was counseled that he would need cardiac cath tomorrow. Per discussion with cardiology, patient to be transfusedwith 2 units of packed red blood cells today. Patient became tearful when told this. Later in the day, I was informed by patient's nurse that patient has started bleeding profusely per rectum. Patient was just passing jerad blood perrectum. He did become hypotensive and repeat hemoglobin check was 6.9. Objective Data Objective Data Vital Signs: Vital Signs Temp Pulse Resp BP Pulse Ox O2 Del Method O2 Flow Rate 97.7 F L 107 H 18 95/61 100 Room Air 2 09/04/22 13:34 09/04/22 13:34 09/04/22 13:34 09/04/22 13:34 09/04/22 13:34 09/04/22 13:34 09/03/22 10:00 Oxygen Flow Rate (L/min) 2 Oxygen Delivery Method Room Air Weight: 194 lb 10.691 oz Body Mass Index (BMI) 26.9 Intake & Output: Intake and Output for Last 24 Hours 09/02/22 09/03/22 09/04/22 23:59 23:59 23:59 Intake Total 2703.34 / 3103.34 3010 / 3010 1646.98 / 1646.98 Balance 2703.34 / 3103.34 3010 / 3010 1646.98 / 1646.98 Lab / Micro Data Result Diagrams: 09/04/22 12:49 09/03/22 07:10 Labs: Laboratory Results - last 24 hr 09/02/22 16:35: Crossmatch See Detail 09/03/22 14:20: Troponin I High Sens 1528 H* 09/03/22 16:20: Troponin I High Sens 2038 H* 09/03/22 18:23: WBC 11.1 H, RBC 2.19 L, Hgb 7.8 L, Hct 24.1 L, MCV 110.0 H, MCH 35.6 H, MCHC 32.4, RDW Std Deviation 54.3 H, RDW Coeff of Dorie 13.7, Plt Count 187, MPV 10.3, Immature Gran % (Auto) 0.500, Neut % (Auto) 78.2 H, Lymph % (Auto) 9.1 L, [place] % (Auto) 9.7, Eos % (Auto) 2.2, Baso % (Auto) 0.3, Absolute Neuts (auto) 8.7 H, Absolute Lymphs (auto) 1.01, Nucleated RBC % 0 09/03/22 20:25: Troponin I High Sens 3730 H* 09/04/22 02:57: APTT 61.4 H 09/04/22 08:28: APTT 77.6 H 09/04/22 12:49: WBC 8.7, RBC 1.91 L, Hgb 6.9 L, Hct 21.0 L, MCV 109.9 H, MCH 36.1 H, MCHC 32.9, RDW Std Deviation 56.1 H, RDW Coeff of Dorie 14.2, Plt Count 166, MPV 10.3, Immature Gran % (Auto) 0.500, Neut % (Auto) 70.3 H, Lymph % (Auto) 12.1 L, [place] % (Auto) 11.5 H, Eos % (Auto) 5.1 H, Baso % (Auto) 0.5, Absolute Neuts (auto) 6.1, Absolute Lymphs (auto) 1.05, Nucleated RBC % 0 Micro: Microbiology 09/02/22 22:40 Stool Stool Lactoferrin - Final 09/02/22 22:40 Stool Enteric Bacteriology - Final 09/02/22 22:40 Stool C. difficile DNA Amplification - Final Physical Exam Const alert and oriented x3 Constitutional Narrative: anxious, tearful HEENT head/scalp atraumatic, moist oral mucous membranes and oropharynx normal Head and Scalp: normocephalic Mouth: dry mucous membranes Eyes PERRL, EOMs intact bilaterally and conjunctivae normal Neck no lymphadenopathy and supple Resp normal respiratory effort, no retractions, no use of accessory muscles and clearto auscultation bilaterally Cardio regular rate, regular rhythm, S1 normal heart sound, S2 normal heart sound and no murmurs GI normal to inspection, nondistended, normoactive bowel sounds, soft to palpation,non-tender and non-distended Extremity normal to inspection, full ROM and no clubbing, cyanosis or edema Neuro oriented x3, CN's II-XII intact bilaterally, moves all extremities and no focal motor deficits Sensorium / Orientation: awake and alert Motor Exam: strength 5/5 throughout Psych Mood & Affect: anxious Assessment & Plan Assessment/Plan (1) Acute blood loss anemia: (2) Bloody diarrhea: (3) Chest pain: PLAN: Plan #REctal bleeding * admitted with a complaints of rectal bleeding. * Hb was 7.8 this morning; * had colonoscopy which showed diverticulosis in the recto sigmoid colon, sigmoid, descending colon and at the splenic flexure and transverse colon; 2 bleeding colonic angiodysplastic lesions which were treated argon plasma coagulation. * GI on board * Hb dropped to 6.9 after he started having profuse rectal bleeding again today. He was started on heparin drip last night o/a of nonstemi; cardiology had wanted to hold off on anticoagulants as patient wasnt having chest pain. family was however quite insistent on patient being started on heparin and plavix. * being transfused with 2 units of PRBCs. * will keep NPO * GI informed, will come re-evaluate patient. * #nonstemi * complained of chest pain after he had colonoscopy. * initial troponin was negative but repeat troponin was 1528; repeat troponins trended upwards and peaked at >3000 * EKG showed ?afib; repeat EKG showed normal sinus rhythm * had a history of CAD and had stents inserted in November and December 2021. * on statin, atenolol. Aspirin and plavix on hold. * 2D echo showed EF of 50% with mild segmental systolic dysfunction. Records requested from [facility] * cardiology on board * for cardiac cath tomorrow * #Acute on chronic anemia * due to GI bleed * Hb was 7.8 this morning; trended down to 6.9 after he was started on heparin * dc heparin and plavix. * bein transfused with 2 units of PRBCs * monitor Hb * GI to re-evaluate patient * #hypotension * patient's BP running low in the 90s now after bleeding recurred * being hydrated with a bolus of NS 1L, then continue with iV normal saline 150cc/hr * low threshold for transferring to ICU and starting vasopressors to maintain MAP>65 * #CAD s/p stents: * on aspirin, plavix and statin. * plavix resumed yesternight; will hold again due to patient starting to bleed again. * #Acute alcohol withdrawal * patient has a history of heavy alcohol use, and drinks 4-6 drinks daily. * alcohol withdrawal protocol with ativan. * on folic acid, thiamine and multivite. * # Hypertension: hold BP meds as BP is running low, likely from recurrent rectal bleeding. #Hyperlipidemia: on statin. DVT prophylaxis; SCDs. Charges/Coding Visit Charges Inpatient E&M: 14193 [facility] Hosp L3 09/04/22 1615 <Electronically signed by Melissa Corbin MD> Cosigner Signature (if applicable): CC: ~ Signed [facility] Work Phone: 1(954) 799-588302-12-[address] Corbin [facility] September 04, 2022 4:14pm Note Date/Time September 03, 2022 3:04pm [facility] Medical Records Department [address] [place] [address] Progress Note - Hospitalist 09/03/22 1500 MR#: [id number] Acct: [id number] Name: NAZARIO HUTTON Rep #:[id number] : 1950 71 From: Melissa Corbin MD PCP: Dr. Valeriano Beasely MD Status:ADM IN Location: [place] [address] 1 Reason for Visit Reason for Visit: Diagnoses Diarrhea, unspecified (09/02/22) Subjective Subjective Patient seen and examined. He was evaluated in the PACU as he started complaining of chest pain. He had colonoscopy today which showed 2 bleeding colonic angiodysplastic lesions, which was treated with argon plasma coagulation; it also showed diverticulosis. HE subsequently started complaining of chest pain. EKG showed questionable afib, but repeat EKG showed normal sinus rhythm. Initial troponin was negative. Objective Data Objective Data Vital Signs: Vital Signs Temp Pulse Resp BP Pulse Ox O2 Del Method O2 Flow Rate 97.8 F 69 16 115/54 L 96 Room Air 2 09/03/22 13:45 09/03/22 13:45 09/03/22 13:45 09/03/22 13:45 09/03/22 13:45 09/03/22 13:45 09/03/22 10:00 Oxygen Flow Rate (L/min) 2 Oxygen Delivery Method Room Air Weight: 193 lb 5.526 oz Body Mass Index (BMI) 26.9 Intake & Output: Intake and Output for Last 24 Hours 09/01/22 09/02/22 09/03/22 23:59 23:59 23:59 Intake Total 2703.34 / 3103.34 1500 / 1500 Balance 2703.34 / 3103.34 1500 / 1500 Lab / Micro Data Result Diagrams: 09/03/22 07:10 09/03/22 07:10 Labs: Laboratory Results - last 24 hr 09/02/22 12:25: Magnesium 2.2 09/02/22 12:25: Phosphorus 3.7 09/02/22 16:35: Blood Type O POSITIVE, Antibody Screen NEGATIVE 09/02/22 16:35: Procalcitonin 0.18 H 09/02/22 16:35: Hgb 8.3 L, Hct 24.8 L 09/02/22 19:56: Hgb 7.9 L, Hct 23.5 L 09/02/22 19:56: PT 14.4, INR 1.2, APTT 25.3 09/02/22 19:56: Total Bilirubin 0.70, Direct Bilirubin 0.18, AST 20, ALT 18, Alkaline Phosphatase 81, Total Protein 6.2 L, Albumin 3.0 L, Globulin 3.2 09/02/22 23:40: Hgb 7.6 L, Hct 23.7 L 09/03/22 07:10: WBC 9.7, RBC 2.02 L, Hgb 7.1 L, Hct 22.2 L, MCV 109.9 H, MCH 35.1 H, MCHC 32.0 D, RDW Std Deviation 53.5 H, RDW Coeff of Dorie 13.4, Plt Izupl992, MPV 10.7, Immature Gran % (Auto) 0.600, Neut % (Auto) 74.7 H, Lymph % (Auto) 11.7 L, [place] % (Auto) 11.1 H, Eos % (Auto) 1.6, Baso % (Auto) 0.3, Absolute Neuts (auto) 7.2, Absolute Lymphs (auto) 1.13, Nucleated RBC % 0.2 09/03/22 07:10: Sodium 142, Potassium 3.6, Chloride 112 H, Carbon Dioxide 24.0, Anion Gap 6, BUN 14, Creatinine 0.86, Estim Creat Clear Calc 81.35, Est GFR (MDRD) Af Amer 112, Est GFR (MDRD) Non-Af 93, BUN/Creatinine Ratio 16.2, Bagjngu95, Calcium 8.0 L, Total Bilirubin 0.70, AST 20, ALT 16, Alkaline Phosphatase 72, Total Protein 5.6 L, Albumin 2.6 L, Globulin 3.0, Albumin/Globulin Ratio 0.9 09/03/22 07:10: Hemoglobin A1c < 3.8 L 09/03/22 09:14: Troponin I High Sens 28 Micro: Microbiology 09/02/22 22:40 Stool Stool Lactoferrin - Final 09/02/22 22:40 Stool Enteric Bacteriology - Final 09/02/22 22:40 Stool C. difficile DNA Amplification - Final Radiography Diagnostic Testing: Radiology Impression Abdomen/Pelvis CT 09/03/22 09:03 IMPRESSION: Circumferential wall thickening of the rectum, may be secondary to proctitis and or a neoplastic process. Colonic diverticulosis. Bilateral nonobstructing renal calculi measuring up to 10.9 mm on the right. Enlarged prostate gland. Atherosclerosis. Electronically Signed: Tess Horne MD at 10:42 EST , Echocardiogram 09/03/22 09:34 Interpretation Summary Normal LV size. The estimated ejection fraction is 50 %. Mild segmental systolic dysfunction (see wall motion). Mild (1+) eccentric mitral valve insufficiency. Mild (1+) tricuspid valve insufficiency. Ordering Physician: Melissa Corbin Referring Physician: Valeriano Beasley Performed By: Elvira James RDCS Physical Exam Const alert, oriented x3 and no apparent distress General Appearance: uncooperative HEENT head/scalp atraumatic, moist oral mucous membranes and oropharynx normal Head and Scalp: normocephalic Mouth: oral and palatal mucosa normal Eyes PERRL, EOMs intact bilaterally and conjunctivae normal Neck no lymphadenopathy and supple Resp normal respiratory effort, no retractions, no use of accessory muscles and clearto auscultation bilaterally Cardio regular rate, regular rhythm, S1 normal heart sound, S2 normal heart sound and no murmurs GI normal to inspection, nondistended, normoactive bowel sounds, soft to palpation,non-tender and non-distended Extremity normal to inspection, full ROM and no clubbing, cyanosis or edema Neuro oriented x3, CN's II-XII intact bilaterally, moves all extremities and no focal motor deficits Sensorium / Orientation: awake and alert Motor Exam: strength 5/5 throughout Psych affect normal Assessment & Plan Assessment/Plan (1) Acute blood loss anemia: (2) Bloody diarrhea: (3) Chest pain: PLAN: Plan #REctal bleeding * admitted with a complaints of rectal bleeding. * Hb is 7.1. * had colonoscopy which showed diverticulosis in the recto sigmoid colon, sigmoid, descending colon and at the splenic flexure and transverse colon; 2 bleeding colonic angiodysplastic lesions which were treated argon plasma coagulation. * GI on board * on clear liquid diet * on IV PPI * dc iv zosyn as no evidence of infection * #nonstemi * complained of chest pain after he had colonoscopy. * initial troponin was negative but repeat troponin was 1528 * EKG showed ?afib; repeat EKG showed normal sinus rhythm * had a history of CAD and had stents inserted in November and December 2021. * on statin, atenolol. Aspirin and plavix on hold. * 2D echo showed EF of 50% with mild segmental systolic dysfunction. Will request records from [facility] * cycle troponins * consult cardiology. * #CAD s/p stents:on aspirin, plavix and statin. Aspirin and plavix on hold. #Acute alcohol withdrawal * patient has a history of heavy alcohol use, and drinks 4-6 drinks daily. * alcohol withdrawal protocol with ativan. * on folic acid, thiamine and multivite. * # Hypertension: on #Hyperlipidemia: on statin. DVT prophylaxis; SCDs. Charges/Coding Visit Charges Inpatient E&M: 69531 Subs Hosp L3 09/04/22 1614 <Electronically signed by Melissa Corbin MD> Cosigner Signature (if applicable): CC: ~ Signed [facility] Work Phone: 1(235) 779-334302-12-2023 Procedure [facility] 09-04-2022 Procedure [facility]02-12-2023 Procedure note [facility]02-12-2023 Procedure [facility] 09-04-2022 Progress note Author Ahmet Chacon [facility] September 04, 2022 10:36am Note Date/Time September 04, 2022 10:36am [facility] Medical Records Department [address] [place] [address] Progress Note 09/04/22 1033 MR#: [id number] Acct: [id number] Name: NAZARIO HUTTON Rep #:[id number] : 1950 71 From: Ahmet Chacon DO PCP: Dr. Valeriano Beasley MD Status:ADM IN Location: [place] [address] Subjective Subjective Patient underwent a colonoscopy for lower GI bleeding yesterday. He was discovered to have significant diverticular disease, hemorrhoids oral disease, angiodysplasia and large polyps that were removed. He has not had any signs or symptoms of bleeding since being restarted on heparin and antiplatelet therapy. He developed some chest pain and shortness of breath at the procedure and he wasdetermined to have a increasing troponin levels. He is being seen by cardiology. Objective Data Objective Data Vital Signs: Vital Signs Temp Pulse Resp BP Pulse Ox O2 Del Method O2 Flow Rate 98.4 F 78 18 129/75 H 98 Room Air 2 09/04/22 09:36 09/04/22 10:06 09/04/22 09:36 09/04/22 10:06 09/04/22 09:36 09/04/22 09:36 09/03/22 10:00 Oxygen Flow Rate (L/min) 2 Oxygen Delivery Method Room Air Weight: 194 lb 10.691 oz Body Mass Index (BMI) 26.9 Intake & Output: Intake and Output for Last 24 Hours 09/02/22 09/03/22 09/04/22 23:59 23:59 23:59 Intake Total 2703.34 / 3103.34 3010 / 3010 1296.98 / 1296.98 Balance 2703.34 / 3103.34 3010 / 3010 1296.98 / 1296.98 Lab / Micro Data Result Diagrams: 09/03/22 18:23 09/03/22 07:10 Labs: Laboratory Results - last 24 hr 09/03/22 14:20: Troponin I High Sens 1528 H* 09/03/22 16:20: Troponin I High Sens 2038 H* 09/03/22 18:23: WBC 11.1 H, RBC 2.19 L, Hgb 7.8 L, Hct 24.1 L, MCV 110.0 H, MCH 35.6 H, MCHC 32.4, RDW Std Deviation 54.3 H, RDW Coeff of Dorie 13.7, Plt Count 187, MPV 10.3, Immature Gran % (Auto) 0.500, Neut % (Auto) 78.2 H, Lymph % (Auto) 9.1 L, [place] % (Auto) 9.7, Eos % (Auto) 2.2, Baso % (Auto) 0.3, Absolute Neuts (auto) 8.7 H, Absolute Lymphs (auto) 1.01, Nucleated RBC % 0 09/03/22 20:25: Troponin I High Sens 3730 H* 09/04/22 02:57: APTT 61.4 H 09/04/22 08:28: APTT 77.6 H Micro: Microbiology 09/02/22 22:40 Stool Stool Lactoferrin - Final 09/02/22 22:40 Stool Enteric Bacteriology - Final 09/02/22 22:40 Stool C. difficile DNA Amplification - Final Radiography Diagnostic Testing: Radiology Impression Abdomen/Pelvis CT 09/03/22 09:03 IMPRESSION: Circumferential wall thickening of the rectum, may be secondary to proctitis and or a neoplastic process. Colonic diverticulosis. Bilateral nonobstructing renal calculi measuring up to 10.9 mm on the right. Enlarged prostate gland. Atherosclerosis. Electronically Signed: Tess Horne MD at 10:42 EST , Echocardiogram 09/03/22 09:34 Interpretation Summary Normal LV size. The estimated ejection fraction is 50 %. Mild segmental systolic dysfunction (see wall motion). Mild (1+) eccentric mitral valve insufficiency. Mild (1+) tricuspid valve insufficiency. Ordering Physician: Melissa Corbin Referring Physician: Valeriano Beasley Performed By: Elvira James RDCS Physical Exam Const alert, oriented x3 and no apparent distress General Appearance: uncooperative HEENT head/scalp atraumatic, moist oral mucous membranes and oropharynx normal Head and Scalp: normocephalic Mouth: oral and palatal mucosa normal Eyes PERRL, EOMs intact bilaterally and conjunctivae normal Neck no lymphadenopathy and supple Resp normal respiratory effort, no retractions, no use of accessory muscles and clearto auscultation bilaterally Cardio regular rate, regular rhythm, S1 normal heart sound, S2 normal heart sound and no murmurs GI normal to inspection, nondistended, normoactive bowel sounds, soft to palpation,non-tender and non-distended Extremity normal to inspection, full ROM and no clubbing, cyanosis or edema Neuro oriented x3, CN's II-XII intact bilaterally, moves all extremities and no focal motor deficits Sensorium / Orientation: awake and alert Motor Exam: strength 5/5 throughout Psych affect normal Assessment & Plan Assessment/Plan (1) NSTEMI (non-ST elevated myocardial infarction): PLAN: He has been seen by cardiology. I agree with transfusion of 2 units of packed red blood cells. I appreciate cardiologys assistance. He will undergo cardiac catheterization tomorrow. (2) History of hypertension: PLAN: He does have a history of hypertension his blood pressure is under good control no changes to be made we will continue with current therapy. Thank you for allowing me to participate in the care of your patient. Please don't hesitate to call if any issues arise. (3) Acute blood loss anemia: PLAN: GI bleeding secondary to multiple sources. Hemorrhoidal, diverticular, angiodysplasia, and adenomatous polyps,. Continue medical management and followhemoglobin. Charges/Coding Visit Charges Inpatient E&M: 10497 Subs Hosp L2 09/04/22 1036 <Electronically signed by Ahmet Chacon DO> Ahmet Chacon DO Cosigner Signature (if applicable): CC: ~ Signed [facility] Work Phone: 1(367) 359-157702-12-[address] Cuevas [facility] September 04, 2022 9:39am Note Date/Time September 04, 2022 9:35am [facility] Medical Records Department [address] [place] [id number] Consultation - Cardiology 09/04/22 0930 MR#: [id number] Acct: [id number] Name: NAZARIO HUTTON Rep #:[id number] : 1950 71 From: Lukas Cuevas MD PCP: Dr. Valeriano Beasley MD Status:ADM IN Location: [place] [address] Assessment & Plan Assessment/Plan (1) NSTEMI (non-ST elevated myocardial infarction): PLAN: Patient presented with anemia and chest discomfort and is noted now to have a non-ST elevation myocardial infarction. The above is likely a type II event from demand ischemia. He does have known coronary artery disease and my recommendation would be to perform a cardiac catheterization and depending on the findings further recommendations will be made. He can be on heparin in the meantime. Due to his recent GI findings I will hold off on the aspirin but continue the Plavix. * I will also recommend transfusion of 2 units of packed red blood cells. The risk benefits alternatives have been explained to the patient and his son they understand and agree to proceed. (2) History of hypertension: PLAN: He does have a history of hypertension his blood pressure is under good control no changes to be made we will continue with current therapy. Thank you for allowing me to participate in the care of your patient. Please don't hesitate to call if any issues arise. HPI Consult Data Date of Consult: 09/04/22 HPI Narrative HPI Narrative: NAZARIO HUTTON, is a 71 M who presents with an abnormal troponin level and chest discomfort after experiencing bright red blood per rectum. The patient said that he suffered a myocardial infarction in November 2021 was taken to [facility] and underwent stenting of one vessel. He returned in January of the same year for 3 more stents. He completed cardiac rehabilitation and was doing well until last week when he started experiencing bright red blood per rectum. This was followed by mild dizziness as well as shortness of breath. He asked his sonto bring him to the hospital and was seen in the emergency room and noted to be anemic and subsequently underwent a colonoscopy which diagnosed diverticular disease. Postprocedure the patient complained of some chest discomfort cardiac enzymes were noted to be abnormal and subsequently peaked at over 3000. An echocardiogram was performed which demonstrated mildly reduced ejection fractionof 50% with segmental wall motion abnormality involving the anterior wall and apex. Cardiology was called for further evaluation and management. He has not had any further chest discomfort but he does complain of some shortness of breath at rest as well as dizziness when he gets up from the seated position. His hemoglobin is between 7 and 8. His EKG demonstrates sinus rhythm with a left bundle branch block. [facility] Medical History Anxiety Atherosclerotic heart disease of [place] coronary artery without angina pectoris Chest pain Coronary artery disease Depression Hyperlipidemia Hypertension Myocardial infarct ST elevation SD (STEMI) (~11/29/21) Home Medications allopurinol 100 mg tablet 100 mg PO DAILY GOUT 03/25/22 [History Last Taken 09/02/22] atenolol 50 mg tablet 50 mg PO DAILY HEART 03/25/22 [History Last Taken 09/02/22] atorvastatin 80 mg tablet 80 mg PO DAILY CHOLESTEOL 03/25/22 [History Last Taken 09/01/22] clopidogrel 75 mg tablet 75 mg PO DAILY BLOOD THINNER 03/25/22 [History Last Taken 09/02/22] doxepin 25 mg capsule 25 mg PO QHS 03/25/22 [History Last Taken Unknown] aspirin 81 mg tablet,delayed release 81 mg PO DAILY HEALTH MAINTENANCE 09/02/22 [History Last Taken 09/02/22] ezetimibe 10 mg tablet 10 mg PO DAILY CHOLESTEROL 09/02/22 [History Last Taken 09/01/22] nitroglycerin 0.4 mg sublingual tablet 0.4 mg sublingual UD PRN Chest Pain 09/02/22 [History Last Taken Unknown] ofloxacin 0.3 % eye drops 1 drp EACH EYE 4X/DAY SURGERY 09/02/22 [History Last Taken 09/02/22] Allergy/AdvReac Type Severity Reaction Status Date / Time hydrochlorothiazide Allergy Hives Verified 03/25/22 14:13 Family History Mother COPD (chronic obstructive pulmonary disease) Lung cancer Father Heart disease Hypertension Myocardial infarction age 53 following SD. Surgical History Presence of coronary angioplasty implant and graft (~11/29/21) S/P cataract extraction Social History household members: none Smoking Status: Former smoker how long ago did patient quit smoking: Smoked from age 18, 1 ppd x 4 years and then quit. alcohol intake: current alcohol intake frequency: 3 or more drinks per day details: Drinks 6 pack beer/day x 1 year following of his . substance use type: does not use ROS Constitutional Constitutional: Denies fever(s) or weight loss Eyes Eyes: Reports systems reviewed and no addt'l complaints, except as documented ENT HEENT: Reports systems reviewed and no addt'l complaints, except as documented Cardiovascular Cardiovascular: Reports chest pain at rest, dizziness and dyspnea at rest; Denies chest pain with activity, dyspnea on exertion, edema, palpitations or paroxysmal nocturnal dyspnea Respiratory/Chest Respiratory/Chest: Denies dyspnea on exertion, productive cough, shortness of breath at rest or shortness of breath with exertion Gastrointestinal Gastrointestinal: Reports hematochezia; Denies change in bowel habits, nausea, vomiting or weight changes Genitourinary Genitourinary: Denies difficulty urinating Musculoskeletal Musculoskeletal: Denies joint stiffness or muscle weakness Integumentary Integumentary: Denies lesions Neurologic Neurologic: Reports dizziness; Denies syncope Psychiatric Psychiatric: Denies anxiety Endocrine Endocrinology: Denies excessive sweating or fatigue Hematologic/Lymphatic Hematologic/Lymphatic: Denies anemia Allergic/Immunologic Allergic/Immunologic: Denies seasonal rhinorrhea Risk Stratification Risk Stratification Applicable: Yes Age >/= 65: Yes >/= 3 CAD Risk Factors (HTN, HLD, DM, family hx of CAD, or current smoker): Yes Aspirin Use in the Past 7 Days: Yes Severe Angina (>/= episodes in 24 hours): No EKG ST Changes >/= 0.5mm: No Positive Cardiac Marker: Yes CRISELDA Risk Stratification Score: 4 CRISELDA % Risk: 20% Risk Objective Data Vital Signs: Vital Signs Temp Pulse Resp BP Pulse Ox O2 Del Method O2 Flow Rate 98.5 F 70 18 112/55 L 97 Room Air 2 09/04/22 03:12 09/04/22 03:12 09/04/22 03:12 09/04/22 03:12 09/04/22 08:16 09/04/22 08:16 09/03/22 10:00 Oxygen Flow Rate (L/min) 2 Oxygen Delivery Method Room Air Weight: 194 lb 10.691 oz Body Mass Index (BMI) 26.9 Intake & Output: Intake and Output for Last 24 Hours 09/02/22 09/03/22 09/04/22 23:59 23:59 23:59 Intake Total 2703.34 / 3103.34 3010 / 3010 1246.98 / 1246.98 Balance 2703.34 / 3103.34 3010 / 3010 1246.98 / 1246.98 Lab / Micro Data Result Diagrams: 09/03/22 18:23 09/03/22 07:10 Labs: Laboratory Results - last 24 hr 09/03/22 09:14: Troponin I High Sens 28 09/03/22 14:20: Troponin I High Sens 1528 H* 09/03/22 16:20: Troponin I High Sens 2038 H* 09/03/22 18:23: WBC 11.1 H, RBC 2.19 L, Hgb 7.8 L, Hct 24.1 L, MCV 110.0 H, MCH 35.6 H, MCHC 32.4, RDW Std Deviation 54.3 H, RDW Coeff of Dorie 13.7, Plt Count 187, MPV 10.3, Immature Gran % (Auto) 0.500, Neut % (Auto) 78.2 H, Lymph % (Auto) 9.1 L, [place] % (Auto) 9.7, Eos % (Auto) 2.2, Baso % (Auto) 0.3, Absolute Neuts (auto) 8.7 H, Absolute Lymphs (auto) 1.01, Nucleated RBC % 0 09/03/22 20:25: Troponin I High Sens 3730 H* 09/04/22 02:57: APTT 61.4 H 09/04/22 08:28: APTT 77.6 H Micro: Microbiology 09/02/22 22:40 Stool Stool Lactoferrin - Final 09/02/22 22:40 Stool Enteric Bacteriology - Final Cardiology Labs/Tests 09/03/22 18:23: WBC 11.1 H, RBC 2.19 L, Hgb 7.8 L, Hct 24.1 L, MCV 110.0 H, MCH 35.6 H, MCHC 32.4, Plt Count 187, MPV 10.3, Immature Gran % (Auto) 0.500, Neut %(Auto) 78.2 H, Lymph % (Auto) 9.1 L, [place] % (Auto) 9.7, Eos % (Auto) 2.2, Baso %(Auto) 0.3, Absolute Neuts (auto) 8.7 H, Nucleated RBC % 0 09/04/22 02:57: APTT 61.4 H 09/04/22 08:28: APTT 77.6 H Rhythm: EKG: ECHO: Stress Test: Cardiac Cath: PCI: CT Surgery: Holter monitor: EPS: PPM: CXR: Chest CT Scan: Radiography Diagnostic Testing: Radiology Impression Abdomen/Pelvis CT 09/03/22 09:03 IMPRESSION: Circumferential wall thickening of the rectum, may be secondary to proctitis and or a neoplastic process. Colonic diverticulosis. Bilateral nonobstructing renal calculi measuring up to 10.9 mm on the right. Enlarged prostate gland. Atherosclerosis. Electronically Signed: Tess Horne MD at 10:42 EST , Echocardiogram 09/03/22 09:34 Interpretation Summary Normal LV size. The estimated ejection fraction is 50 %. Mild segmental systolic dysfunction (see wall motion). Mild (1+) eccentric mitral valve insufficiency. Mild (1+) tricuspid valve insufficiency. Ordering Physician: Melissa Corbin Referring Physician: Valeriano Beasley Performed By: Elvira James RDCS 09/04/22 0939 <Electronically signed by Lukas Cuevas MD> Cosigner Signature (if applicable): CC: Dr. Jael Ramos MD; Dr. Lukas Cuevas MD; Dr. Valeriano Beasley MD~ Signed [facility] Work Phone: 1(896) 357-315602-11-2023 Procedure [facility] 09-03-2022 Procedure [facility]02-10-2023 History and physical note Author Dr. Ramos [facility] September 02, 2022 6:26pm Note Date/Time September 02, 2022 2:53pm [facility] Medical Records Department [address] [place] [address] H&P Exam - Hospitalist 09/02/22 1434 MR#: [id number] Acct: [id number] Name: NAZARIO HUTTON Rep #:[id number] : 1950 71 From: Jael Ramos MD PCP: Dr. Valeriano Beasley MD Status:ADM IN Location: [facility] [id number] HPI - General General Date of Admission: 09/02/22 Date of Service: 09/02/22 Chief Complaint: Lightheadedness, dizziness, bloody diarrhea. HPI Narrative The patient is a 71 y/o M w/ PMHx: EtOH abuse (6 pack beer daily x 1 yr since passing of his ) with concurrent untreated Depression, HTN, HLD, CAD s/p PCIx 3 12/2021 of note, Gout who presents to the [facility] ED on 09/02/22 with history of increasing fatigue, malaise, generalized weakness and lightheadedness with recent onset starting Monday prior to presentation abdominal cramping and discomfort with loose bloody stools reportedly bloody in appearance with lightheadedness especially with activity, positional changes with no recent URI type symptoms nor any fevers or chills or nausea or emesis but given ongoing symptoms prompted ED evaluation. He notes having at least 7 watery bloody stoolseach day. Patient does report that the abdominal cramping that occurs with a loose bloody stools are not necessarily painful and very short-lived. In the EDlengthy discussion regarding his alcohol use and suspected underlying depressionwhich she confirms with history of his passing approximately 1 year prior which is when he started to also drink heavily. Son present in the room during conversations and did encourage his father to be honest. Work-up in the ED included T96.9, heart rate 81, BP 130/109, respiratory rate 16, 100% on room air, orthostatics with heart rate variation 64-78, BP variation 126/75 to 109/75, CBC with WBC 16.4, hemoglobin 9.3, MCV 104.9, platelet 212 with left shift and lymphopenia, BMP with BUN/creatinine 28/1.61, glucose 137. In the ED patient ministered 1 L normal saline as well as IV cipro and IV flagyl. From [employer] system last noted baseline labs 04/14/22 14.4, 44.2, macrocytic, 04/14/22 BUN/Cr 10/0.68. [facility] Medical History Anxiety Atherosclerotic heart disease of [place] coronary artery without angina pectoris Chest pain Coronary artery disease Depression Hyperlipidemia Hypertension Myocardial infarct ST elevation SD (STEMI) (~11/29/21) Home Medications allopurinol 100 mg tablet 100 mg PO DAILY GOUT 03/25/22 [History Last Taken 09/02/22] atenolol 50 mg tablet 50 mg PO DAILY HEART 03/25/22 [History Last Taken 09/02/22] atorvastatin 80 mg tablet 80 mg PO DAILY CHOLESTEOL 03/25/22 [History Last Taken 09/01/22] clopidogrel 75 mg tablet 75 mg PO DAILY BLOOD THINNER 03/25/22 [History Last Taken 09/02/22] doxepin 25 mg capsule 25 mg PO QHS 03/25/22 [History Last Taken Unknown] aspirin 81 mg tablet,delayed release 81 mg PO DAILY HEALTH MAINTENANCE 09/02/22 [History Last Taken 09/02/22] ezetimibe 10 mg tablet 10 mg PO DAILY CHOLESTEROL 09/02/22 [History Last Taken 09/01/22] nitroglycerin 0.4 mg sublingual tablet 0.4 mg sublingual UD PRN Chest Pain 09/02/22 [History Last Taken Unknown] ofloxacin 0.3 % eye drops 1 drp EACH EYE 4X/DAY SURGERY 09/02/22 [History Last Taken 09/02/22] Allergy/AdvReac Type Severity Reaction Status Date / Time hydrochlorothiazide Allergy Hives Verified 03/25/22 14:13 Family History (Updated 09/02/22 @ 18:[address] Jael Ramos MD) Mother COPD (chronic obstructive pulmonary disease) Lung cancer Father Heart disease Hypertension Myocardial infarction age 53 following SD. Surgical History (Updated 09/02/22 @ 18:[address] Jael Ramos MD) Presence of coronary angioplasty implant and graft (~11/29/21) S/P cataract extraction Social History (Updated 09/02/22 @ 18:[address] Jael Ramos MD) household members: none Smoking Status: Former smoker how long ago did patient quit smoking: Smoked from age 18, 1 ppd x 4 years and then quit. alcohol intake: current alcohol intake frequency: 3 or more drinks per day details: Drinks 6 pack beer/day x 1 year following of his . substance use type: does not use ROS ROS Narrative Admission Review of Systems: CONSTITUTIONAL: No weight loss, fever, chills, + weakness or fatigue. HEENT: Eyes: No visual loss, blurred vision, double vision or yellow sclerae. Ears, Nose, Throat: No hearing loss, sneezing, congestion, runny nose or sore throat. SKIN: No rash or itching, lesions, wounds. CARDIOVASCULAR: + Lightheadedness, dizziness. No chest pain, chest pressure or chest discomfort, palpitations, edema, orthopnea, syncopal events. RESPIRATORY: No shortness of breath, cough or sputum, wheezing, hemoptysis. GASTROINTESTINAL: + anorexia, abdominal cramping, bloody appearing diarrhea, No nausea, vomiting, melena. GENITOURINARY: No dysuria, frequency, urgency or retention. NEUROLOGICAL: + Lightheadedness, dizziness. No headache, syncope, paralysis, ataxia, numbness or tingling in the extremities, focal weakness, change in bowelor bladder control, seizure. MUSCULOSKELETAL:+ muscle, back pain, joint pain or stiffness. HEMATOLOGIC: + anemia, bleeding or bruising. LYMPHATICS: No enlarged nodes. No history of splenectomy. PSYCHIATRIC: + admits depression or anxiety. ENDOCRINOLOGIC: No reports of sweating, cold or heat intolerance. No polyuria orpolydipsia. ALLERGIES: No history of asthma, hives, eczema or rhinitis. Vital Signs Vital Signs Vital Signs: 09/02/22 11:39 09/02/22 12:32 09/02/22 12:51 Temperature 96.9 F L Temperature Source Temporal Pulse Rate 81 Pulse Rate [Lying] 64 Pulse Rate [Sitting (for 1 minute prior to obtaining)] 63 Pulse Rate [Standing (for 1 minute prior to obtaining)] 78 Respiratory Rate 16 Respiratory Pattern Normal Blood Pressure 130/109 H Blood Pressure [Lying] 126/75 H Blood Pressure [Sitting (for 1 minute prior to obtaining)] 122/73 H Blood Pressure [Standing (for 1 minute prior to obtaining)] 109/75 Blood Pressure Mean 116 Blood Pressure Mean [Lying] 92 Blood Pressure Mean [Sitting (for 1 minute prior to obtaining)] 89 Blood Pressure Mean [Standing (for 1 minute prior to obtaining)] 86 Pulse Ox 100 Oxygen Delivery Method Room Air Weight Weight: 200 lb Body Mass Index (BMI) 28.7 Physical Exam Narrative Physical Examination: General: Awake, alert, oriented x 3 and cooperative, extremely flat affect, seated upright in ED bed, denies any complaints. Skin: Mildly pale color, normal turgor, no icterus, no cyanosis. HEENT: AT/NC, EOMI, PERRLA, moderately dry MM, no carotid bruits or JVD noted. Lungs: Mildly diminished, greater bases, appropriate effort, no rales, ronchi orwheezing. Heart: Currently regular rate and rhythm; no gallop, rub audible. Abdomen: Soft, NTTP, ND, notably hyperactive BS, no HSM. Extremities: No cyanosis, clubbing, or edema. Neurological: Patient awake, alert, oriented as noted, cognitive function intact; pupils equally reactive to light and accommodation, cranial nerves II-XII grossly normal, moving all 4 extremities, no focal deficits, strength moderately to severely global decrease secondary to acute complaints. Psychiatric: Affect appears flat, fatigued, does admit to depression that is untreated and undiagnosed. Results Lab / Micro Data Result Diagrams: 09/02/22 16:35 09/02/22 12:25 Labs: Laboratory Results - last 24 hr 09/02/22 12:25: WBC 16.4 H, RBC 2.63 L, Hgb 9.3 L, Hct 27.6 L, MCV 104.9 H, MCH 35.4 H, MCHC 33.7, RDW Std Deviation 51.0 H, RDW Coeff of Dorie 13.3, Plt Count 212, MPV 10.4, Immature Gran % (Auto) 0.700, Neut % (Auto) 86.3 H, Lymph % (Auto) 4.3 L, [place] % (Auto) 8.6, Eos % (Auto) 0.0, Baso % (Auto) 0.1, Absolute Neuts (auto) 14.1 H, Absolute Lymphs (auto) 0.71 L, Nucleated RBC % 0 09/02/22 12:25: Sodium 138, Potassium 4.8, Chloride 107, Carbon Dioxide 24.0, Anion Gap 7, BUN 28 H, Creatinine 1.61 H, Estim Creat Clear Calc 43.45, Est GFR (MDRD) Af Amer 55 L, Est GFR (MDRD) Non-Af 45 L, BUN/Creatinine Ratio 17.4, Glucose 137 H, Calcium 9.2 Assessment & Plan Assessment/Plan (1) Bloody diarrhea: PLAN: Plan The patient is a 71 y/o M w/ PMHx: EtOH abuse (6 pack beer daily x 1 yr since passing of his ) with concurrent untreated Depression, HTN, HLD, CAD s/p PCIx 3 12/2021 of note, Gout who presents to the [facility] ED on 09/02/22 with history of increasing fatigue, malaise, generalized weakness and lightheadedness with recent onset starting Monday prior to presentation abdominal cramping and discomfort with loose bloody stools reportedly bloody in appearance with lightheadedness especially with activity, positional changes. #1. Persistent diarrhea with bloody appearance with decreased intake with concern for near syncope, lightheadedness, dizziness, orthostasis with associated ABLA as noted #2 and also BC #3: We will admit to MS telemetry, maintain on fall precautions, continue judicious hydration, will obtain C. difficile as well as enteric stool pathogen, notable issues in the community with diarrheal illnesses of note recently including rotavirus most prominently, clears until midnight then NPO status given concurrent presentation #2, as needed antiemetic,if abdominal discomfort onset with rebound or guarding low threshold to obtain CT, will in the interim obtain procalcitonin as well and initiate IV zosyn untilcultures return especially given #2 and EtOH abuse history. #2. Acute on Chronic Macrocytic anemia suspected secondary to ABLA associated with Acute GI bleed with #1 complicated by EtOH abuse: Admission Hgb 9.3, MCV 104.9 with last 04/14/22 CBC w/ Hgb 14.4, Hct 44.2, macrocytic. Given acute presentation with concerns for bloody diarrhea x 3 days with profound decreased Hgb on dual antiplatelet therapy will temporarily hold (took on day of presentation of note, would restart following intervention per GI, will continueto trend HH, formally obtain guiac, allow clears only with then NPO after midnight, maintain on IV PPI with GI consultation. #3. Acute kidney injury: Suspected to recent acute GI losses and hemorrhagic losses, admission BUN/Cr 28/1.61, prior baseline 04/14/22 BUN/Cr 10/0.68, will hydrate, hold nephrotoxic medications and repeat chemistry in AM. If no improvement would plan FeNa and renal ultrasound assessment. Urinalysis requested. #4. Hyperglycemia: Possibly reactive, mild, admission glucose 137, will obtain hemoglobin A1c to be cautious. #5. CAD: Status post PCI with most recently 3 stents placed 12/2021, will hold asa and Plavix temporarily given severity of Hgb drop and once evaluated plan resumption single agent only, will temporally also hold lisinopril given BC in addition we will temporarily hold atenolol given significant orthostatic sensation as well, add back once appropriate, continue statin therapy. #6. Hypertension: Given normal range BP and orthostatic complaints we will temporarily hold hypertensive regimen, continue judicious hydration, add back regimen once appropriate, as needed IV hydralazine in interim. #7. Hyperlipidemia: Continue home statin regimen. #8. Overweight: Weight loss and lifestyle changes encouraged. #9. Gout: We will continue patient home allopurinol regimen. #10. EtOH Abuse: Patient notes routine consumption of sixpack of beer per day. Will maintain on CIWA protocol, MVI, thiamine and folic acid. Patient interestedin sobriety therefore will consult case management for substance use assistance. Discussed at length with patient importance of also treating his depression as this is likely led to his alcohol consumption following the of his . #11. Depression, undiagnosed, untreated: Patient does admit to ongoing depression since his 's passing which is led to him drinking nearly sixpack of beer daily, discussed healthy methods of treating and dealing with his depression are needed at this time and will consult case management for close follow-up for consideration medication as well as therapy. #12. DVT prophylaxis: SCDs, defer chemoprophylaxis given concern for bloody diarrhea. #13. CODE status: Patient DELFINA is his son Jae and living will is in place. Discussed CODE status at length including difference between FULL code, DNR-CCA and DNR-CC status. Following discussions about the differences in these status, requested Full Code status. Advanced Care Planning Face to Face Time: 16 minutes. Admission Evaluation Time spent evaluating chart, patient history, patient evaluation, care planning and discussion with specialists: 76 minutes. Charges/Coding Visit Charges Inpatient E&M: 94338 Init Hosp L3 Procedures Hospitalists Procedures: 98242 Advncd Care Plan 30 Min 09/02/22 1826 <Electronically signed by Jael Ramos MD> Cosigner Signature (if applicable): CC: Dr. Jael Ramos MD; Dr. Valeriano Beasley MD~ Signed [facility] Work Phone: [phone]) 860-921402-10-2023 Consult note Author Ahmetkristyn Chacon [facility] September 02, 2022 5:20pm Note Date/Time September 02, 2022 5:20pm [facility] Medical Records Department [address] [place] [address] Consultation - GI 09/02/22 1716 MR#: [id number] Acct: [id number] Name: NAZARIO HUTTON Rep #:[id number] : 1950 71 From: Ahmet Chacon DO PCP: Dr. Valeriano Beasley MD Status:ADM IN Location: [facility] TZ421-3 HPI Consult Data Date of Consult: 09/02/22 HPI Narrative Reason for Consultation: GI bleed HPI Narrative: NAZARIO HUTTON, is a 71-year-old male with history of hypertension, coronary disease with placement of 3 stents December 2021.? He is presently on Plavix.? He does endorse bruising easily.? He states his stool is watery and bloody.? He hasno history of inflammatory bowel disorder.? He denies abdominal pain.? He does endorse bruising easily. Bleeding started happening on 08/31/2022. Hehas never had any GI bleeding in the past. In the ED he was covered to have a hemoglobin of 9.6 and is currently down 8.3. He has elevated BUN/creatinine ratio 28:1 0.6. He denies any history of chronic kidney disease. His platelet count is normal at 212 but his MCV is elevated at 103.6. He has no history of alcoholism or liver disease. He has also no bone marrow issues. He denies headache, visual, ocular auditory symptoms.? He denies rhinorrhea, congestion, postnasal drainage or sore throat.? He denies chest discomfort or cough.? He denies leg pain, swelling or discoloration.? He denies vomiting. [facility] Medical History (Updated 09/02/22 @ 15:42 by Jeanette Romero) Anxiety Atherosclerotic heart disease of [place] coronary artery without angina pectoris Chest pain Coronary artery disease Depression Hyperlipidemia Hypertension Myocardial infarct ST elevation SD (STEMI) (~11/29/21) Home Medications allopurinol 100 mg tablet 100 mg PO DAILY GOUT 03/25/22 [History Last Taken 09/02/22] atenolol 50 mg tablet 50 mg PO DAILY HEART 03/25/22 [History Last Taken 09/02/22] atorvastatin 80 mg tablet 80 mg PO DAILY CHOLESTEOL 03/25/22 [History Last Taken 09/01/22] clopidogrel 75 mg tablet 75 mg PO DAILY BLOOD THINNER 03/25/22 [History Last Taken 09/02/22] doxepin 25 mg capsule 25 mg PO QHS 03/25/22 [History Last Taken Unknown] aspirin 81 mg tablet,delayed release 81 mg PO DAILY HEALTH MAINTENANCE 09/02/22 [History Last Taken 09/02/22] ezetimibe 10 mg tablet 10 mg PO DAILY CHOLESTEROL 09/02/22 [History Last Taken 09/01/22] nitroglycerin 0.4 mg sublingual tablet 0.4 mg sublingual UD PRN Chest Pain 09/02/22 [History Last Taken Unknown] ofloxacin 0.3 % eye drops 1 drp EACH EYE 4X/DAY SURGERY 09/02/22 [History Last Taken 09/02/22] Allergy/AdvReac Type Severity Reaction Status Date / Time hydrochlorothiazide Allergy Hives Verified 03/25/22 14:13 Surgical History (Updated 09/02/22 @ 15:42 by Jeanette Romero) History of coronary artery stent placement Presence of coronary angioplasty implant and graft (~11/29/21) Social History household members: none Smoking Status: Never smoker substance use type: does not use ROS Review of Systems ROS Unobtainable: other Constitutional Constitutional: Denies fatigue, fever(s), poor appetite, weight gain or weight loss ENT HEENT: Denies mouth lesions Cardiovascular Cardiovascular: Denies abdominal bloating, abdominal edema or abdominal pain Respiratory/Chest Respiratory/Chest: Denies change in mental status, change in phlegm color, chestcongestion or chest tightness Gastrointestinal Gastrointestinal: Denies belching, bloating, change in bowel habits, change in stool character, chewing difficulty, coffee ground emesis, constipation, cramping, diarrhea, dyspepsia, dysphagia, early satiety, excessive flatus, fecalincontinence, heartburn, hematemesis, hematochezia, hemorrhoids, loose stools, melena, nausea, odynophagia, rectal bleeding, tenesmus, vomiting or weight changes Genitourinary Genitourinary: Denies abdominal discomfort, burning urination or itching Musculoskeletal Musculoskeletal: Reports as per HPI; Denies muscle weakness or myalgias Integumentary Integumentary: Denies jaundice Neurologic Neurologic: Denies lack of coordination or weakness Psychiatric Psychiatric: Denies confusion, depression, memory loss, mood swings, paranoia orsuicidal ideation Endocrine Endocrinology: Denies systems reviewed and no addt'l complaints, except as documented Hematologic/Lymphatic Hematologic/Lymphatic: Denies anemia, easy bleeding, easy bruising or lymphadenopathy Allergic/Immunologic Allergic/Immunologic: Denies systems reviewed and no addt'l complaints, except as documented Physical Exam Const alert General Appearance: cooperative Orientation / Consciousness: oriented to person HEENT hearing grossly normal bilaterally Head and Scalp: normal to inspection Face and Sinus: face symmetric Nose: external nose normal Mouth: oral and palatal mucosa normal Eyes conjunctivae normal General Eye: normal appearance of both eyes Neck full ROM General: normal visual inspection Lymph Lymphatic: no lymphadenopathy noted Chest inspection of chest normal and palpation of chest normal Chest: symmetrical chest wall rise Resp normal respiratory effort Effort and Inspection: able to speak in complete sentences Cardio regular rate GI non-distended Percussion: normal to percussion Rectal Exam: deferred Neuro Speech: speech normal Gait (Neuro): normal gait Lab / Micro Data Result Diagrams: 09/02/22 16:35 09/02/22 12:25 Labs: Laboratory Results - last 24 hr 09/02/22 12:25: WBC 16.4 H, RBC 2.63 L, Hgb 9.3 L, Hct 27.6 L, MCV 104.9 H, MCH 35.4 H, MCHC 33.7, RDW Std Deviation 51.0 H, RDW Coeff of Dorie 13.3, Plt Count 212, MPV 10.4, Immature Gran % (Auto) 0.700, Neut % (Auto) 86.3 H, Lymph % (Auto) 4.3 L, [place] % (Auto) 8.6, Eos % (Auto) 0.0, Baso % (Auto) 0.1, Absolute Neuts (auto) 14.1 H, Absolute Lymphs (auto) 0.71 L, Nucleated RBC % 0 09/02/22 12:25: Sodium 138, Potassium 4.8, Chloride 107, Carbon Dioxide 24.0, Anion Gap 7, BUN 28 H, Creatinine 1.61 H, Estim Creat Clear Calc 43.45, Est GFR (MDRD) Af Amer 55 L, Est GFR (MDRD) Non-Af 45 L, BUN/Creatinine Ratio 17.4, Glucose 137 H, Calcium 9.2 09/02/22 12:25: Magnesium 2.2 09/02/22 12:25: Phosphorus 3.7 09/02/22 16:35: Hgb 8.3 L, Hct 24.8 L Assessment & Plan Assessment/Plan (1) Bloody diarrhea: PLAN: Plan The differential diagnosis for acute GI bleeding in this gentleman is diverticular bleeding, angiodysplasia, less likely neoplasia, stercoral ulcer, upper GI bleed with rapid transit. He should undergo an upper lower endoscopy to evaluate his upper lower GI tract. I would transfuse for hemoglobin less than 8. He should get iron studies, B12, folic acid and an ultrasound of the liver to look for any signs of liver disease. He was explained alternatives, risk, benefits including not withstanding bleeding, infection, sepsis, perforation, need for emergent surgery and . He will have an ASA of 3. Charges/Coding Visit Charges Inpatient E&M: 34238 Init Hosp L2 09/02/22 1720 <Electronically signed by Ahmet Friend DO> Cosigner Signature (if applicable): CC: Dr. Valeriano Beasley MD~ Signed [facility] Work Phone: [phone]) 254-310702-10-[address] Holguin [facility] September 02, 2022 2:40pm Note Date/Time September 02, 2022 12:26pm [facility] Medical Records Department [address] [place] [id number] Emergency Department Summary 09/02/22 MR#: [id number] Acct: [id number] Name: NAZARIO HUTTON Rep #:[id number] : 1950 71 From: Marino Holguin MD PCP: Dr. Valeriano Beasley MD Status:REG ER Location: ED HPI History of Present Illness Chief Complaint: Shortness of Breath Detail of Chief Complaint: Shortness of breath, generalized weakness, lightheadedness, thirst and diar Informant: patient and family Onset/Context/Timing Onset: Days (Onset August 31) Context: Sudden Onset Timing: Intermittent Quality: Bloody diarrhea 7/day Location: GI Current Severity: Gone Maximum Severity: Moderate Worsened by: Diarrhea causes abdominal discomfort Relieved by: Nothing Associated Symptoms Associated Symptoms: Orthostatic symptoms and thirst Narrative Narrative: Patient is an elderly 71-year-old male with history of hypertension, coronary disease with placement of 3 stents December 2021. He is presently on Plavix. He does endorse bruising easily. He states his stool is watery and bloody. He hasno history of inflammatory bowel disorder. He denies abdominal pain. He does endorse bruising easily. He denies headache, visual, ocular auditory symptoms. He denies rhinorrhea, congestion, postnasal drainage or sore throat. He denies chest discomfort or cough. He denies leg pain, swelling or discoloration. He denies vomiting. Prior similar symptoms: No Recent Illness/Hospitalization: No [facility] Medical History Atherosclerotic heart disease of [place] coronary artery without angina pectoris Coronary artery disease Hyperlipidemia Hypertension ST elevation SD (STEMI) (~11/29/21) Home Medications amlodipine 5 mg tablet mg PO DAILY 05/30/13 [History Last Taken Unknown] atenolol 25 mg tablet mg PO DAILY 05/30/13 [History Last Taken Unknown] lisinopril 5 mg tablet mg PO DAILY 05/30/13 [History Last Taken Unknown] pravastatin 40 mg tablet 40 mg PO DAILY 05/30/13 [History Last Taken Unknown] allopurinol 100 mg tablet 100 mg PO DAILY 03/25/22 [History Last Taken Unknown] ascorbic acid (vitamin C) 500 mg tablet 500 mg PO DAILY 03/25/22 [History Last Taken Unknown] aspirin 81 mg capsule 81 mg PO DAILY 03/25/22 [History Last Taken Unknown] atenolol 50 mg tablet 50 mg PO DAILY 03/25/22 [History Last Taken Unknown] atorvastatin 80 mg tablet 80 mg PO DAILY 03/25/22 [History Last Taken Unknown] cholecalciferol (vitamin D3) 125 mcg (5,000 unit) capsule 125 mcg PO DAILY 03/25/22 [History Last Taken Unknown] clopidogrel 75 mg tablet 75 mg PO DAILY 03/25/22 [History Last Taken Unknown] [id number] oil-omega 3-vit E 50 mg-550 mg-300 mg-30 unit capsule cap PO 03/25/22 [History Last Taken Unknown] diphenhydramine HCl 25 mg capsule (Benadryl) 25 mg PO QHS PRN Allergic Symptoms 03/25/22 [History Last Taken Unknown] doxepin 25 mg capsule 25 mg PO QHS 03/25/22 [History Last Taken Unknown] multivit with minerals-iron 18 mg-folic ac 400 mcg-vit K 25 mcg tablet (Adults Multivitamin) tab PO 03/25/22 [History Last Taken Unknown] nitroglycerin 0.3 mg sublingual tablet 0.4 mg sublingual Q5M PRN Chest Pain 03/25/22 [History Last Taken Unknown] Allergy/AdvReac Type Severity Reaction Status Date / Time hydrochlorothiazide Allergy Hives Verified 03/25/22 14:13 Surgical History Presence of coronary angioplasty implant and graft (~11/29/21) Social History (Updated 09/02/22 @ 12:[address] Marino Holguin MD) household members: none Smoking Status: Never smoker substance use type: does not use ROS ROS ED Constitutional Constitutional ED: Reports chills; Denies fever(s), subjective, sweats or weightloss Eyes Eyes: Denies blurry vision, change in vision or diplopia ENT ENT ED: Denies ear pain, rhinorrhea or sore throat Cardiovascular Cardiovascular: Reports other Details: Orthostatic dizziness ; Denies chest pain, orthopnea, palpitations, paroxysmal nocturnal dyspnea or racing heartbeat Respiratory/Chest Respiratory/Chest: Reports dyspnea and dyspnea on exertion; Denies cough, orthopnea, paroxysmal nocturnal dyspnea or sputum Gastrointestinal Gastrointestinal: Reports diarrhea and other Details: Bloody stool without mucus. He does report order. He denies antibiotic use in the past month. He denies ill contacts. He denies eating anything that tasted unusual. ; Denies abdominal pain, melena, nausea or vomiting Genitourinary Genitourinary ED: Denies dysuria, hematuria or urinary frequency Musculoskeletal Musculoskeletal: Denies arthralgias, back pain, myalgias or neck pain Integumentary Reports other Details: Bruising ; Denies Abrasions or rash Neurologic Neurologic: Denies paresthesias Endocrine Endocrinology: Denies cold intolerance or heat intolerance Hematologic/Lymphatic Hematologic/Lymphatic: Reports easy bruising; Denies easy bleeding EXAM Physical Exam Const Vital Signs: 09/02/22 11:39 09/02/22 12:32 09/02/22 12:51 Temperature 96.9 F L Temperature Source Temporal Pulse Rate 81 Pulse Rate [Lying] 64 Pulse Rate [Sitting (for 1 minute prior to obtaining)] 63 Pulse Rate [Standing (for 1 minute prior to obtaining)] 78 Respiratory Rate 16 Respiratory Pattern Normal Blood Pressure 130/109 H Blood Pressure [Lying] 126/75 H Blood Pressure [Sitting (for 1 minute prior to obtaining)] 122/73 H Blood Pressure [Standing (for 1 minute prior to obtaining)] 109/75 Blood Pressure Mean 116 Blood Pressure Mean [Lying] 92 Blood Pressure Mean [Sitting (for 1 minute prior to obtaining)] 89 Blood Pressure Mean [Standing (for 1 minute prior to obtaining)] 86 Pulse Ox 100 Oxygen Delivery Method Room Air Positive well nourished and well developed General Appearance ED: well developed and NAD; Negative for cyanotic, diaphoretic or pallor HEENT Reports dry mucous membranes HEENT Narrative: Head is atraumatic normocephalic. Ears normal. Nares patent. Uvula midline. No abnormality of the posterior pharynx. Mouth ED: Yes dry mucous membranes Mouth: dry mucous membranes Eyes PERRL and EOMs intact bilaterally General Eye ED: Negative for pale conjunctiva or scleral icterus Neck no lymphadenopathy, supple and no JVD Chest Wall inspection of chest normal and palpation of chest normal Resp normal respiratory effort and clear to auscultation bilaterally Cardio regular rate, regular rhythm, S1 normal heart sound, S2 normal heart sound and no murmurs GI normal to inspection, nondistended, normoactive bowel sounds, non-tender, non-distended and no masses; Negative for hepatosplenomegaly Auscultation: hyperactive bowel sounds Palpation: soft Rectal Exam: normal sphincter tone, prostate normal and other Other Details: Anoscopy was performed. ; Negative for tenderness Back/Spine Cervical Spine: Negative for cervical spine tenderness Thoracic Spine / Upper Back: Negative for thoracic spinal tenderness Extremity normal to inspection General Extremety ED: Negative for edema, tenderness or other findings General Extremity: Negative for edema or other findings Neuro oriented x3, CN's II-XII intact bilaterally and no sensory deficits noted Sensorium / Orientation: alert Motor Exam: strength 5/5 throughout Psych mental status grossly normal Skin no rashes or lesions noted, no wounds and skin turgor normal General Skin Exam: Negative for jaundice or pallor MDM MDM MDM Narrative Medical decision making narrative: Patient presents with bloody diarrhea and no abdominal pain. This may be due toviral or bacterial infection. With no abdominal pain and no abdominal tenderness doubt ischemic colitis. Because patient reports orthostatic symptomsorthostatic vital signs were obtained. CBC was obtained to assess white count and assess hemoglobin. Clinically he is not anemic. BMP was obtained because of his complaint of thirst orthostatic symptoms to assess renal function, electrolytes and specifically to evaluate for hypokalemia as well as CO2 anion gap. Stool was obtained for enteric pathogens. Using [facility] to compare laboratory results. Patient's had a significant dropin his hemoglobin from 14.4 and 44.2 on April 14 to 7.5. BUN and creatininewere normal. BUN was 10 with a creatinine of 0.68. SPECT patient's orthostaticdizziness is due to acute blood loss and BC. Because patient has elevated white count will start on ciprofloxacin and metronidazole. Will contact hospitalist for admission. Spoke with Dr. Jael Ramos. She will admit patient to [facility], full admission. She will contact DrMarissa Chacon regarding patient. Discussed CAT scan. She was informed I did not order CAT scan since he does not complain of abdominal pain and has a benign abdominal exam. Lab Data Attestation: I reviewed the patient's lab results. Lab results narrative: White count is elevated 16.4 thousand with shift. Patient has evidence of macrocytic anemia. BUN and creatinine are elevated 28 and 1.61 with a GFR of 45. Glucose is elevated 137 with a normal CO2 and anion gap Labs: Laboratory Results - last 24 hr 09/02/22 09/02/22 12:25 12:25 WBC 16.4 H RBC 2.63 L Hgb 9.3 L Hct 27.6 L MCV 104.9 H MCH 35.4 H MCHC 33.7 RDW Std Deviation 51.0 H RDW Coeff of Dorie 13.3 Plt Count 212 MPV 10.4 Immature Gran % (Auto) 0.700 Neut % (Auto) 86.3 H Lymph % (Auto) 4.3 L [place] % (Auto) 8.6 Eos % (Auto) 0.0 Baso % (Auto) 0.1 Absolute Neuts (auto) 14.1 H Absolute Lymphs (auto) 0.71 L Nucleated RBC % 0 Sodium 138 Potassium 4.8 Chloride 107 Carbon Dioxide 24.0 Anion Gap 7 BUN 28 H Creatinine 1.61 H Estim Creat Clear Calc 43.45 Est GFR (MDRD) Af Amer 55 L Est GFR (MDRD) Non-Af 45 L BUN/Creatinine Ratio 17.4 Glucose 137 H Calcium 9.2 Procedures Other Procedures Procedure(s): Anoscopy: Patient has no evidence of external or internal hemorrhoids. Rectal mucosa appears normal. Material above the scope reveals evidence of old blood. There is no black stool. There is no maroon-colored stool. Discharge Plan Dx/Rx/DC Orders Clinical Impression: Bloody diarrhea, Acute blood loss anemia, BC (acute kidney injury), Leukocytosis, History of hypertension Disposition Disposition: Acute Care Hospital [facility] What to do if you have Problems For any increased pain, shortness of breath, bleeding, nausea or vomiting, chestpain, or any unexpected problems, contact your Primary Care Provider. Call [facility] ([phone]) or report to the closest Emergency Room. Call 911 if necessary. 09/02/22 1440 <Electronically signed by Marino Holguin MD> Cosigner Signature (if applicable): CC: Dr. Valeriano Beasley MD ~ Signed [facility] Work Phone: [phone]) 344-212909-26-2022 Instructions* Patient Instructions* Valeriano Beasley MD - 04/18/2022 3:14 PM EDT Consider getting the shingrix vaccine for the prevention of shingles from a local pharmacy Please get labs done on or after 10/07/2022 prior to your next visit. [facility] History of Present illness Narrative* Valeriano Beasley MD - 04/18/2022 2:40 PM EDT Welcome [...] 66 Resp 16 Ht 174 cm (5' 8.5) Wt 90.4 kg (199 lb 3.2 oz) BMI 29.85 kg/m Alert and oriented X 3: YES Body mass index is 39.85 kg/m . Visual acuity: seeing optho See below ASSESSMENT/PLAN: 71 year old male The following prevention plan was discussed during the office visit and provided to the patient: See below Valeriano Beasley MD Chief Complaint Patient presents with: Medicare [...] He is currently doing cardiac rehab at [facility] 3 days a week. Umpping about 3 baseball games a week. Past medical history, appointments, medications, allergies reviewed. Previous Medical History PAST MEDICAL HISTORY Diagnosis Date Anxiety 12/08/2014 BENIGN HYPERTENSION 03/04/2008 Coronary artery disease due to lipid rich plaque 12/06/[address] Edwards , cardio [place] Elevated alkaline phosphatase level 09/03/2017 Elevated PSA 03/17/2021 Heart murmur, systolic 08/01/2018 High serum parathyroid hormone (PTH) 08/01/[address] elevation myocardial infarction (STEMI) 12/06/2021 Hyperuricemia 10/30/2014 Low vitamin D level 03/15/2021 Medicare annual wellness visit, subsequent 03/15/2021 Medicare Part B: Not able to find. 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 Per Cardio, Dr. Edwards allopurinol (ZYLOPRIM) 100 mg tablet TAKE 1 [...] 66 Resp 16 Ht 174 cm (5' 8.5) Wt 90.4 kg (199 lb 3.2 oz) [...] - 4.00 k/uL 0.72 (L) 0.87 (L) [place]% % 12.2 13.2 Abs [place] <0.87 k/uL 1.06 (H) 0.93 (H) Eosin% [...] Negative Ketones, Urine Negative Negative Negative Specific [place], Ur 1.005 - 1.030 1.021 1.017 Hemoglobin/Blood,Ur Negative Negative Negative pH, Urine 5.0 - 8.0 5.0 5.5 Protein, Urine Negative 1+ (A) Trace (A) Urobilinogen Negative 2+ (A) Negative Nitrites Negative Negative Negative Leukest Negative Trace (A) 75 Jade/mL (A) Comment SEE COMMENT Urine Yovany Comment SEE COMMENT WBC, Urine 0-5 /HPF [...] which included preparing to see the patient, axoq-ze-mdge patient care, completing clinical documentation, performing a medically appropriate examination, counseling and educating the patient/family/caregiver and ordering medications, tests, or procedures. Valeriano Beasley MD documented in this encounterM[facility] Miscellaneous Notes* Telephone Encounter - Zenobia Monroy - 04/12/2022 10:56 AM EDT Patient is wanting to have labs placed prior to seeing Dr. Beasley. Please advise patient via mychart when labs are placed or if he needs to wait until after the appointment. Thank you, Zenobia Monroy documented in this encounterM[facility]ull[facility]07-[facility]22 Hospital Discharge instructions Patient Education 01/27/2022 [...] Document Reviewed: 07/11/2014 ExitCare Patient Information 2015 [employer]. This information is not intended to replace [...] until you are awake and alert. Take vdol-jpx-mierghg and prescription medicines only as told by [...] 04/30/2014 Document Revised: 06/22/2018 Document Reviewed: 10/29/2016 Resilinc Patient Education 2020 [employer] Tech. Follow Up Care 01/17/2022 13:12:32 With:Cardiac Rehabilitation Address: [facility] [address] [place] [id number]- When: Unknown Comments:Cardiac Rehab will call you for an appointment in 1-2 weeks.Information given. Please call us with any questions. [phone] With:VALERIANO BEASLEY Address: [address] [place] [address]- [facility] (1) When: Unknown With:FRANKLIN VAUGHN MD Address: [address] [facility] [address] [facility] [place] [address]- When:03/11/2022 13:30:00 [facility] 07-07-2022 Summary of episode note Discharge Instructions Thank you for allowing [facility] to assist you with your healthcare needs. The following is importantdischarge information regarding your hospital visit. Your Care Team VALERIANO BEASLEY MD What to do next Scheduled Follow-Up Appointments Appointment Type When Where Contact InformationCV OV Hospital Follow Up 03/11/2022 01:30 PM EDT [facility] Follow Up Appointments Follow Up with FRANKLIN VAUGHN MD When 03/11/2022 01:30 PM EDT Where: [address] [facility] [address] [place] [address]- Follow Up with Cardiac Rehabilitation When Why: Cardiac Rehab will call you for an appointment in 1-2 weeks.Information given. Please call us with any questions. [phone] Where: [address] [place] [address]- Follow Up with VALERIANO BEASLEY When In 0 days Where: [address] [place] [address]- Business (1) The Following Activity and Diet [...] and or supplements as they may interact withur home medications. What How Much When Instructions [...] Document Reviewed: 07/11/2014 ExitCare Patient Information 2015 [employer]Me[employer]. This information is not intended to replace [...] until you are awake and alert. Take zldf-mmy-zvpvslp and prescription medicines only as told by [...] 04/30/2014 Document Revised: 06/22/2018 Document Reviewed: 10/29/2016 [employer] Patient Education 2020 [employer]ilinc Inc. Additional Information VACCINATE! IT SAVES LIVES! Members of the community who have not yet received the COVID-19 vaccine and would like to receive it can visit one of [facility] vaccine clinics. There are many vaccine clinic locations within the [facility]. For locations and available times, please visit [email or web address] It is important to note that some COVID mobile vaccine clinics are held outdoors and may be canceled in rainy or stormy conditions. To learn more about pediatric vaccinations (ages 5-11), we invite you to visit the [facility] webpage. [email or web address] [email or web address] learn more about the COVID-19 vaccine, we invite you to visit the [facility] website for a list of frequently asked questions. [email or web address] [facility] Patient Portal Access Instructions: Stay connected with your healthcare team and access your personal medical information anytime with the [facility] Patient Portal.If you would like a full copy of your medical records, please contact the [facility] Medical Records Department, Monday through Monday between 8a.m. and 4:30p.m. Please follow the directions below to access the portal: 1.Access the email account you provided upon registration to the hospital.2.Look for an invitation email from [facility].3.Open the email and access the invitation link: Accept Invitation to [facility]4.Fill in the required shaikh to create your account. Sign into [email or web address] with your username and password that you [...] you will allow to register on the [facility] Patient Portal for access to your information. You can also access the [facility] Patient Portal on the Cellworks. Simply click on Health Records under Netvibes and then click on the [employer] logo. HOW TO SAFELY DISPOSE OF PRESCRIPTION [...] Call your local pharmacy or go to [email or web address] to find one close to you.3.Make use of household items: Use cat litter or old coffee grounds to dispose medications if other options arenot available. Mix your drugs with these household products, seal them in an airtight container andthrow it into the garbage. Call [facility]: [phone] to be sure your drugs can be [...] aware that I should contact my doctor. Patient/Legal Recruiter Signature: Date/Time: Relationship to Patient: Witness Name/Signature: Date/Time: [id number] Miscellaneous Notes* Telephone Encounter - Randa Scott - 12/31/2021 4:26 PM EDT INN documented in this encounterMccull[facility]05-12-2022 Miscellaneous Notes* Telephone Encounter - Valeriano Beasley MD - 12/02/2021 5:26 PM EDT Noted. * Telephone Encounter - Ganesh White MA - 12/02/2021 4:59 PM EDT Contacted [facility] requested hospital documentation. Ganesh White MA * Telephone Encounter - Nara Yates RN - 12/02/2021 4:18 PM EDT Patient returned call. He was sent by squad to [facility] from work then to [facility] on Wednesday 11/29. On arrival to [facility] he went directly to label machine operator for stent to RCA. Hewas discharged home on 12/01. He has an appointment with a associate director of development in [place] on 12/28. He was discharged on Brilinta and NTG prn. Lisinopril and Amlodipine were discontinued. Atenolol was decreased. He says he's doing well. Nara Yates RN * Telephone Encounter - Ganesh White MA - 12/02/2021 3:46 PM EDT Left message for patient to contact office as patient was scheduled for a 20 minutes hospital visit. This should have been scheduled for 40 minutes. We need to find out which hospital he was seen in. Does he have follow up appointments with Cardiology? Ganesh White MA' documented in this encounterMccull[facility]05-11-2022 Hospital Discharge instructions Patient Education 12/01/2021 12:31:14 Hypertension, Adult, Xtoe-xe-Dcxq Hypertension, Adult Hypertension is another name for [...] your doctor. This is important. Medicines Take sqho-inf-nsjzesc and prescription medicines only as told by [...] 12/26/2008 Document Revised: 03/20/2019 Document Reviewed: 03/20/2019 Resilinc Patient Education 2020 S5 Tech. 12/01/2021 12:31:01 Heart Attack, Bfbp-ea-Ehkx Heart Attack A heart attack occurs when blood and oxygen supply to the heart is cut off. A heart attack causes damage to the heart that cannot be fixed. A heart attack is also called a myocardial infarction, or SD. If you think you are having a [...] Follow these instructions at home: Medicines Take utxo-xnb-gxxqkxh and prescription medicines only as told by [...] 01/08/2013 Document Revised: 10/21/2019 Document Reviewed: 10/21/2019 Elsevier Patient Education 2020 S5 Tech. 12/01/2021 12:30:46 Atrial Fibrillation, Iecq-iv-Dydp Atrial Fibrillation Atrial fibrillation is a condition [...] Document Reviewed: 08/20/2013 ExitCare Patient Information 2015 Neul [facility]. This information is not intended to replace advicegiven to you by your health care provider. Make sure you discuss any questions you have with your health care provider. Follow Up Care 11/29/2021 15:20:14 With:TESSA GUZMAN MD, Thoracic Service, Vascular Service Address: [address] [place] [address] [address] [place] [address] [facility] [place] [phone] When:12/28/2021 15:00:00 With:CHRISTINE EDWARDS MD Address: [address] [facility] [address] [facility] [place] [address]- [phone] When:12/28/2021 11:30:00 Comments:THIS APPOINTMENT WILL BE WITH PONCHO BYRNE With:Cardiac Rehabilitation Address: [address] [place] [address]- When: Unknown Comments:Cardiac Rehab will call you for an appointment in 1-2 weeks.Information given. Please call us with any questions. [phone] With:VALERIANO BEASLEY Address: [address] [place] [phone]- Business (1) When:1-2 days [facility] 05-09-2022 Evaluation + Plan noteExtracted from: Title:History and Physical Author:EMPERATRIZ REEVES DO Date:11/29/[address] elevation myocardia l [...] down the stairs to evaluate patient in Satellite Tv Technician for future outpatient bypass after this initial [...] the use of this technology. Dr. Lisa Reeves Interventional [facility] Pharmacist, PGY 7 Pager: [phone] Please call with any questions or concerns Attending for this patient encounter is Dr. Nicolas Future Appointments Appointment Date:12/28/2021 11:30:00 AM Scheduled Provider:CATY MACARIO Location:[facility] Appointment Type:CV OV Hospital Follow Up Appointment Date:12/28/2021 03:00:00 PM Scheduled Provider:TESSA GUZMAN MD Location:[facility] Appointment Type:CTS OV [facility] 01-09-2019 History of Past illness Narrative* Problem Noted Date Resolved Date High serum parathyroid hormone (PTH) 08/01/2018 08/12/2019 Elevated PTHrP level 07/21/2018 08/12/2019 Impaired fasting glucose 09/03/2017 019 Abrasion of left ear canal 08/28/201708/12 Stool guaiac positive 01/19/2016 08/01/2018 Hyperuricemia 10/30/2014 08/12/2019 Neurodermatitis 07/12/2011 08/01/2018 documented as of this encounter (statuses as of 12/02/2021) [facility] of Past illness Narrative* Problem Noted Date Resolved Date High serum parathyroid hormone (PTH) 08/01/2018 08/12/2019 Elevated PTHrP level 07/21/2018 08/12/2019 Impaired fasting glucose 09/03/2017 019 Abrasion of left ear canal 08/28/201708/12 Stool guaiac positive 01/19/2016 08/01/2018 Hyperuricemia 10/30/2014 08/12/2019 Neurodermatitis 07/12/2011 08/01/2018 documented as of this encounter (statuses as of 12/31/2021) [facility] of Past illness Narrative* Problem Noted Date Resolved Date High serum parathyroid hormone (PTH) 08/01/2018 08/12/2019 Elevated PTHrP level 07/21/2018 08/12/2019 Impaired fasting glucose 09/03/2017 019 Abrasion of left ear canal 08/28/201708/12 Stool guaiac positive 01/19/2016 08/01/2018 Hyperuricemia 10/30/2014 08/12/2019 Neurodermatitis 07/12/2011 08/01/2018 documented as of this encounter (statuses as of 01/02/2022) [facility] of Past illness Narrative* Problem Noted Date Resolved Date High serum parathyroid hormone (PTH) 08/01/2018 08/12/2019 Elevated PTHrP level 07/21/2018 08/12/2019 Impaired fasting glucose 09/03/2017 019 Abrasion of left ear canal 08/28/201708/12 Stool guaiac positive 01/19/2016 08/01/2018 Hyperuricemia 10/30/2014 08/12/2019 Neurodermatitis 07/12/2011 08/01/2018 documented as of this encounter (statuses as of 04/12/2022) [facility] of Past illness Narrative* Problem Noted Date Resolved Date High serum parathyroid hormone (PTH) 08/01/2018 08/12/2019 Elevated PTHrP level 07/21/2018 08/12/2019 Impaired fasting glucose 09/03/2017 019 Abrasion of left ear canal 08/28/201708/12 Stool guaiac positive 01/19/2016 08/01/2018 Hyperuricemia 10/30/2014 08/12/2019 Neurodermatitis 07/12/2011 08/01/2018 documented as of this encounter (statuses as of 04/19/2022) [facility] of Past illness Narrative* Problem Noted Date Resolved Date High serum parathyroid hormone (PTH) 08/01/2018 08/12/2019 Elevated PTHrP level 07/21/2018 08/12/2019 Impaired fasting glucose 09/03/2017 019 Abrasion of left ear canal 08/28/201708/12 Stool guaiac positive 01/19/2016 08/01/2018 Hyperuricemia 10/30/2014 08/12/2019 Neurodermatitis 07/12/2011 08/01/2018 documented as of this encounter (statuses as of 09/06/2022) [facility] of [facility] illness Narrative* Problem Noted Date Resolved Date High serum parathyroid hormone (PTH) 08/01/2018 08/12/2019 Elevated PTHrP level 07/21/2018 08/12/2019 Impaired fasting glucose 09/03/2017 019 Abrasion of left ear canal 08/28/201708/12 Stool guaiac positive 01/19/2016 08/01/2018 Hyperuricemia 10/30/2014 08/12/2019 Neurodermatitis 07/12/2011 08/01/2018 documented as of this encounter (statuses as of 09/06/2022) [facility] of [facility] illness Narrative* Problem Noted Date Resolved Date High serum parathyroid hormone (PTH) 08/01/2018 08/12/2019 Elevated PTHrP level 07/21/2018 08/12/2019 Impaired fasting glucose 09/03/2017 019 Abrasion of left ear canal 08/28/201708/12 Stool guaiac positive 01/19/2016 08/01/2018 Hyperuricemia 10/30/2014 08/12/2019 Neurodermatitis 07/12/2011 08/01/2018 documented as of this encounter (statuses as of 09/12/2022) [facility] illness Narrative* Problem Noted Date Resolved Date High serum parathyroid hormone (PTH) 08/01/2018 08/12/2019 Elevated PTHrP level 07/21/2018 08/12/2019 Impaired fasting glucose 09/03/2017 019 Abrasion of left ear canal 08/28/201708/12 Stool guaiac positive 01/19/2016 08/01/2018 Hyperuricemia 10/30/2014 08/12/2019 Neurodermatitis 07/12/2011 08/01/2018 documented as of this encounter (statuses as of 09/16/2022) [facility] Narrative* Problem Noted Date Resolved Date High serum parathyroid hormone (PTH) 08/01/2018 08/12/2019 Elevated PTHrP level 07/21/2018 08/12/2019 Impaired fasting glucose 09/03/2017 019 Abrasion of left ear canal 08/28/201708/12 Stool guaiac positive 01/19/2016 08/01/2018 Hyperuricemia 10/30/2014 08/12/2019 Neurodermatitis 07/12/2011 08/01/2018 documented as of this encounter (statuses as of 09/16/2022) [facility] Narrative* Problem Noted Date Resolved Date High serum parathyroid hormone (PTH) 08/01/2018 08/12/2019 Elevated PTHrP level 07/21/2018 08/12/2019 Impaired fasting glucose 09/03/2017 019 Abrasion of left ear canal 08/28/201708/12 Stool guaiac positive 01/19/2016 08/01/2018 Hyperuricemia 10/30/2014 08/12/2019 Neurodermatitis 07/12/2011 08/01/2018 documented as of this encounter (statuses as of 10/12/2022) [facility] Narrative* Problem Noted Date Resolved Date High serum parathyroid hormone (PTH) 08/01/2018 08/12/2019 Elevated PTHrP level 07/21/2018 08/12/2019 Impaired fasting glucose 09/03/2017 019 Abrasion of left ear canal 08/28/201708/12 Stool guaiac positive 01/19/2016 08/01/2018 Hyperuricemia 10/30/2014 08/12/2019 Neurodermatitis 07/12/2011 08/01/2018 documented as of this encounter (statuses as of 10/13/2022) [facility] Narrative* Problem Noted Date Resolved Date High serum parathyroid hormone (PTH) 08/01/2018 08/12/2019 Elevated PTHrP level 07/21/2018 08/12/2019 Impaired fasting glucose 09/03/2017 019 Abrasion of left ear canal 08/28/201708/12 Stool guaiac positive 01/19/2016 08/01/2018 Hyperuricemia 10/30/2014 08/12/2019 Neurodermatitis 07/12/2011 08/01/2018 documented as of this encounter (statuses as of 10/21/2022) [facility] Narrative* Problem Noted Date Resolved Date High serum parathyroid hormone (PTH) 08/01/2018 08/12/2019 Elevated PTHrP level 07/21/2018 08/12/2019 Impaired fasting glucose 09/03/2017 019 Abrasion of left ear canal 08/28/201708/12 Stool guaiac positive 01/19/2016 08/01/2018 Hyperuricemia 10/30/2014 08/12/2019 Neurodermatitis 07/12/2011 08/01/2018 documented as of this encounter (statuses as of 11/11/2022) [facility] Narrative* Problem Noted Date Resolved Date High serum parathyroid hormone (PTH) 08/01/2018 08/12/2019 Elevated PTHrP level 07/21/2018 08/12/2019 Impaired fasting glucose 09/03/2017 019 Abrasion of left ear canal 08/28/201708/12 Stool guaiac positive 01/19/2016 08/01/2018 Hyperuricemia 10/30/2014 08/12/2019 Neurodermatitis 07/12/2011 08/01/2018 documented as of this encounter (statuses as of 11/15/2022) [facility] Narrative* Problem Noted Date Resolved Date High serum parathyroid hormone (PTH) 08/01/2018 08/12/2019 Elevated PTHrP level 07/21/2018 08/12/2019 Impaired fasting glucose 09/03/2017 019 Abrasion of left ear canal 08/28/201708/12 Stool guaiac positive 01/19/2016 08/01/2018 Hyperuricemia 10/30/2014 08/12/2019 Neurodermatitis 07/12/2011 08/01/2018 documented as of this encounter (statuses as of 12/20/2022) [facility] Narrative* Problem Noted Date Resolved Date High serum parathyroid hormone (PTH) 08/01/2018 08/12/2019 Elevated PTHrP level 07/21/2018 08/12/2019 Impaired fasting glucose 09/03/2017 019 Abrasion of left ear canal 08/28/201708/12 Stool guaiac positive 01/19/2016 08/01/2018 Hyperuricemia 10/30/2014 08/12/2019 Neurodermatitis 07/12/2011 08/01/2018 documented as of this encounter (statuses as of 01/06/2023) [facility] No data available for this section [facility] Evaluation + Plan note Future Appointments Appointment Date:03/11/2022 01:30:00 PM Scheduled Provider: Location:[facility] Appointment Type:CV Hospital Follow Up [facility] Evaluation note* Diagnosis Myocardial infarction involving left anterior descending (LAD) coronary artery, unspecified SD type (HCC)- Primary [facility] noteNo assessment information availableWPremier [facility] Work Phone: Evaluation note* Diagnosis Coronary artery disease due to lipid rich plaque- Primary Essential hypertension, benign Mixed hyperlipidemia Gout without tophus Low vitamin D level Elevated PSA Elevated prostate specific antigen (PSA) Medication management Encounter for long-term (current) use of other medications documented in this encounter [facility] Diagnosis Medicare annual wellness visit, [...] Other specified counseling documented [facility] this encounter [facility] Diagnosis NSTEMI (non-ST elevated myocardial infarction) (HCC) Acute myocardial infarction, subendocardial infarction, episode of care unspecified Diverticulosis Diverticulosis of colon (without mention of hemorrhage) documented [facility]* Diagnosis Onset Date Resolution Status Acute blood loss anemia acut e BC (acute kidney injury) ac eyak Bloody diarrhea acute Chest pain acute History of hypertension acut e Leukocytosis acute NSTEMI (non-ST elevated myocardial infarction) acute [facility] Work Phone: Evaluation note* Diagnosis Lower GI bleed- Primary Hemorrhage of gastrointestinal tract, unspecified Situational depression Adjustment disorder with depressed mood 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 Alcohol abuse Alcohol abuse, unspecified H/O non-ST elevation myocardial infarction (NSTEMI) Old myocardial infarction Mixed hyperlipidemia [facility]* Diagnosis Essential hypertension, benign- Primary Mixed hyperlipidemia NSTEMI (non-ST elevated myocardial infarction) ([facility]) Acute myocardial infarction, subendocardial infarction, episode [...] Gout without tophus documented [facility]* Diagnosis Onset Date Resolution Status BC (acute kidney injury) ac eyak Leukocytosis acute NSTEMI (non-ST elevated myocardial infarction) acute Atherosclerotic heart diseas e of [place] coronary artery without angina pectoris acute Essential hypertension acute Hyperlipidemia acute [facility] Work Phone: Evaluation note* Diagnosis Medicare annual wellness visit, subsequent- [...] ear wax, right documented [facility] this encounter [facility]* Diagnosis Essential hypertension, benign- Primary Low serum vitamin B12 Anxiety Anxiety state, unspecified documented in this encounter [facility] note* Diagnosis Other specified disorders of kidney and ureter- Primary Essential hypertension, benign Kidney lesion Unspecified disorder of kidney and ureter [facility]* Diagnosis Other specified disorders of kidney and ureter Kidney lesion Unspecified disorder of kidney and ureter [facility] Diagnosis Onset Date Resolution Status Neuropathy acute Other intervertebral disc degeneration, lumbar region acute Atherosclerotic heart diseas e of [place] coronary artery without angina pectoris acute Dizziness acute Essential hypertension acute Hyperlipidemia acute SOB (shortness of breath) [facility] Work Phone: Evaluation note* Diagnosis Coronary artery disease due to lipid rich plaque- Primary Essential hypertension, benign Mixed hyperlipidemia Kidney lesion Unspecified disorder of kidney and ureter Low serum vitamin B12 Gout without tophus Alcohol abuse Alcohol abuse, unspecified Elevated PSA Elevated prostate specific antigen (PSA) [facility] Renal stones- Primary Calculus of kidney Hydronephrosis, unspecified hydronephrosis type [facility] Diagnosis Balance problems- Primary Other symptoms involving nervous and musculoskeletal systems Abnormality of gait Numbness Disturbance of skin sensation Neuropathy Mononeuritis of unspecified site Other symptoms and signs involving the nervous system History of CAD (coronary artery disease) History of coronary artery stent placement Postsurgical percutaneous transluminal coronary angioplasty status [facility] Other symptoms and signs involving the nervous system [facility] Diagnosis Other symptoms and signs involving the nervous system [facility] Diagnosis Occlusion and stenosis of unspecified carotid artery- Primary Nephropathy screen Screening for nephropathy Stenosis of carotid artery, unspecified laterality [facility] Diagnosis Occlusion and stenosis of unspecified carotid artery [facility] Diagnosis Tongue swelling- Primary Swelling, mass, or lump in head and neck [facility] Diagnosis Essential hypertension, benign- Primary [facility] Diagnosis Medicare annual wellness visit, subsequent- Primary Routine general medical examination at a health care facility Encounter for immunization Need for other specified prophylactic vaccination against single bacterial disease Essential hypertension, benign Advance directive discussed with patient Other specified counseling Living will in place 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 Localized superficial swelling, mass, or lump Valvular heart disease Endocarditis, valve unspecified, unspecified cause Coronary artery disease due to lipid rich plaque Heart murmur, systolic Undiagnosed cardiac murmurs Mixed hyperlipidemia Low vitamin D level Low serum vitamin B12 Gout without tophus Overweight with body mass index (BMI) of 29 to 29.9 in adult Elevated LFTs Other abnormal blood chemistry Alcohol abuse Alcohol abuse, unspecified Elevated PSA Elevated prostate specific antigen (PSA) [facility] Diagnosis Liver fibrosis- Primary Cirrhosis of liver without mention of alcohol [facility] Diagnosis Essential hypertension, benign- Primary [facility] Diagnosis Alcoholic cirrhosis, unspecified whether ascites present (HCC)- Primary [facility] Diagnosis Angioedema, subsequent encounter- Primary [facility] Diagnosis Angioedema, subsequent encounter documented [facility] Diagnosis Neuropathy, idiopathic- Primary Mononeuritis of unspecified site Abnormal SPEP Other nonspecific findings on examination of blood Positive GALLO (antinuclear antibody) Other and unspecified nonspecific immunological findings Abnormality of gait Numbness Disturbance of skin sensation [facility] Diagnosis Abnormal SPEP- Primary Other nonspecific findings on examination of blood [facility] Diagnosis Positive GALLO (antinuclear antibody)- Primary Other and unspecified nonspecific immunological findings Ds DNA antibody positive Other and unspecified nonspecific immunological findings Neuropathy Mononeuritis of unspecified site [facility] Diagnosis Neuropathy - (NOS)- Primary [facility] Diagnosis Monoclonal gammopathy- Primary Monoclonal paraproteinemia Hypercalcemia [facility] Diagnosis Monoclonal gammopathy- Primary Monoclonal paraproteinemia Neuropathy - (NOS) documented [facility] Diagnosis Monoclonal gammopathy Monoclonal paraproteinemia documented in this [facility] Diagnosis Essential hypertension, benign- Primary Alcoholic cirrhosis, unspecified whether ascites present (HCC) Advance directive discussed with patient Other specified counseling Valvular heart disease Endocarditis, valve unspecified, unspecified cause Lumbosacral radiculopathy at L5 Thoracic or lumbosacral neuritis or radiculitis, unspecified Mixed hyperlipidemia Coronary artery disease due to lipid rich plaque Low vitamin D level Prostate disorder Unspecified disorder of prostate Low serum vitamin B12 Medication management Encounter for long-term (current) use of other medications Screening for abdominal aortic aneurysm Screening for other and unspecified cardiovascular conditions [facility] Diagnosis Screening for abdominal aortic aneurysm Screening for other and unspecified cardiovascular conditions [facility] Diagnosis Peripheral polyneuropathy- Primary Unspecified hereditary and idiopathic peripheral neuropathy Low vitamin B12 level Other B-complex deficiencies Drinks beer documented [facility] Hospital discharge follow-up- Primary Other follow-up examination Essential hypertension, benign [facility] Author Flakita Florentino [facility] Note Date/Time December 27, 2024 2:52p m [facility] Medical Records Department [address] [place] [address] H&P Exam - Hospitalist 12/27/24 1411 MR#: [id number] Acct: [id number] Name: NAZARIO HUTTON Rep #:[id number] : 1950 74 From: Flakita Florentino DO PCP: Dr. Valeriano Beasley MD Status:REG ER Location: ED HPI - General General Date of Admission: 12/27/24 Date of Service: 12/27/24 Chief Complaint: Tongue and lip swelling HPI Narrative NAZARIO HUTTON, is a 74 M who presented to the emergency department at [facility] on 12/27/2024 with tongue and lip swelling. Patient has had previous angioedema events in March 2024 and July 2024 at this facility. It does appear that ARB has been listed as an allergy. He reported on presentation to the emergency department physician that there is no familial angioedema. Was reported he did not eat out anything out of the norm. I was unable to elicit a history as the patient was intubated at the time of my evaluation. Due to rapid swelling of the tongue immediate rapid sequence intubation was pursued by the emergency department. Vital signs on presentation showed a temperature of 98, heart rate 85, respiratory 16, blood pressure 165/97 and pulse ox was 99% on room air. CBC wasunremarkable. He does appear to have a chronic lymphopenia, monocytosis, and eosinophilia. Chemistry was unremarkable. AST is slightly elevated at 50. Chest x-ray shows ET tube and OG in good place with some plate atelectasis in the right middle lobe. EKG is normal sinus rhythm without any ST-T wave changesconcerning for acute ischemia. He will be admitted to the ICU and maintained on Solu-Medrol, H2 and H1 blockers. [facility] Medical History High serum parathyroid hormone (PTH) Heart murmur Elevated alkaline phosphatase level Elevated PSA Diverticulosis AVM (arteriovenous malformation) of colon Vitamin D deficiency Gout Alcohol abuse Essential hypertension Chest pain Anxiety Depression Myocardial infarct Chest pain Acute blood loss anemia Bloody diarrhea Coronary artery disease Atherosclerotic heart disease of [place] coronary artery without angina pectoris ST elevation SD (STEMI) (~11/29/21) Hyperlipidemia Hypertension Home Medications ?Medication ?Instructions ?Recorded ?Last Taken ?Type allopurinol 100 mg tablet 100 mg PO DAILY GOUT 2 09/02/22 History atorvastatin 80 mg tablet 80 mg PO DAILY CHOLESTEOL 09/01/22 History ezetimibe 10 mg tablet 10 mg PO DAILY CHOLESTEROL 0 09/02/22 09/01/22 History nitroglycerin 0.4 mg sublingual 0.4 mg sublingual UD P RN Chest Pain 09/02/22 Unknown History tablet ascorbic acid (vitamin C) 500 mg 1,000 mg (2 x 500 mg) PO BIDCM 30 09/09/22 Unknown Rx tablet days #120 tabs cholecalciferol (vitamin D3) 125 125 mcg PO DAILY 04/16 Unknown History mcg (5,000 unit) capsule omega 3-dha 100 mg-epa 400 mg-fish cap PO 09/01/23 Unk nown History oil 1,000 mg capsule vitamin B complex (B 1 tab PO DAILY 09/01/23 Unkn own History Complex-Vitamin B12 tablet) isosorbide mononitrate 30 mg 30 mg PO QAM 04/15/24 Unk nown History tablet,extended release 24 hr amlodipine 5 mg tablet 5 mg PO QDAY 09/19/24 Unknow n History carvedilol 12.5 mg tablet 12.5 mg PO BID 09/19/24 Unkn own History fexofenadine 180 mg tablet 180 mg PO QDAY 09/19/24 Unk nown History fluoxetine 40 mg capsule 40 mg PO QDAY 09/19/24 Unkno wn History gabapentin 300 mg capsule 300 mg PO BID 09/19/24 Unkno wn History doxepin 25 mg capsule 25 mg PO QHS 04/15/25 Unknow n History Allergy/AdvReac Type Severity Reaction Status Date / Time losartan Allergy Severe Angioedema Verified 12/27/24 13:13 hydrochlorothiazide Allergy Hives Verified 12/27/24 13:13 Family History Mother COPD (chronic obstructive pulmonary disease) Lung cancer Father Heart disease Hypertension Myocardial infarction age 53 following SD. Surgical History H/O colonoscopy S/P cataract extraction Presence of coronary angioplasty implant and graft (~11/29/21) Social History household members: none Smoking Status: Former smoker how long ago did patient quit smoking: Smoked from age 18, 1 ppd x 4 years and then quit. alcohol intake: current alcohol intake frequency: a few times a week Alcohol type: beer substance use type: does not use ROS Review of Systems ROS Unobtainable: due to endotracheal tube Vital Signs Vital Signs Vital Signs: 12/27/24 13:13 12/27/24 13:40 12/27/24 13:42 Temperature 98 F Temperature Source Oral Pulse Rate 85 Respiratory Rate 16 14 Respiratory Effort Short of Breath Respiratory Depth Normal Respiratory Pattern Normal Normal Blood Pressure 165/97 H Blood Pressure Mean 119 Pulse Ox 99 Oxygen Delivery Method Room Air Fraction of Inspired Oxygen (FIO2) 35 12/27/24 14:05 12/27/24 14:05 12/27/24 14:11 Temperature Temperature Source Pulse Rate 83 84 82 Respiratory Rate 19 H 14 16 Respiratory Effort Respiratory Depth Respiratory Pattern Blood Pressure 166/96 H 86/62 L 116/84 H Blood Pressure Mean 119 70 94 Pulse Ox 99 97 97 Oxygen Delivery Method Mechanical Ventilator Mechanical Ventilator Mechanical Ventilator Fraction of Inspired Oxygen (FIO2) Weight Weight: 95.028 kg Body Mass Index (BMI) 30.0 Physical Exam Const well nourished; Negative for alert, oriented x3, no apparent distress or averagebody habitus Constitutional Narrative: Intubated and sedated, obese, white male, lying in bed, mildly agitated bucking the vent HEENT normocephalic, head/scalp atraumatic and moist oral mucous membranes HEENT Narrative: Tongue swelling noted with secretions pooling in the side of his mouth and drooling Eyes EOMs intact bilaterally and conjunctivae normal Eyes Narrative: No scleral icterus Resp normal respiratory effort, no retractions, no use of accessory muscles and clearto auscultation bilaterally Auscultation: Negative for rales, rhonchi or wheezes Cardio regular rate, regular rhythm, S1 normal heart sound, S2 normal heart sound, no murmurs, no rub, no gallops and no clicks GI normal to inspection, nondistended, normoactive bowel sounds, soft to palpation and non-tender Extremity no clubbing, cyanosis or edema Extremity Narrative: 2+ pedal and radial pulses Neuro Neuro Narrative: Unable to fully assess as patient is intubated and sedated does spontaneously try to move upper and lower extremities Psych Psych Narrative: Unable to assess Results Lab / Micro Data 12/27/24 13:31 12/27/24 13:31 Labs: Laboratory Results - last 24 hr 12/27/24 13:31: WBC 7.5, RBC 3.95 L, Hgb 14.1, Hct 40.9, MCV 103.5 H, MCH 35.7 H, MCHC 34.5, RDW Std Deviation 51.5 H, RDW Coeff of Dorie 13.3, Plt Count 200, MPV9.7, Immature Gran % (Auto) 0.300, Neut % (Auto) 67.1, Lymph % (Auto) 9.8 L, [place] % (Auto) 11.2 H, Eos % (Auto) 10.8 H, Baso % (Auto) 0.8, Absolute Neuts (auto) 5.0, Absolute Lymphs (auto) 0.73 L, Nucleated RBC % 0, Sodium 139, Potassium 4.7, Chloride 105, Carbon Dioxide 23.1, Anion Gap 11, BUN 10, Creatinine 0.72, Estim Creat Clear Calc 93.74, Est GFR (MDRD) Non-Af 96, BUN/Creatinine Ratio 14.1, Glucose 95, Calcium 9.4, Total Bilirubin 0.80, AST 50H, ALT 34, Alkaline Phosphatase 151 H, Total Protein 7.4, Albumin 4.0, Globulin 3.5, Albumin/Globulin Ratio 1.1 Assessment & Plan Assessment/Plan (1) Acute respiratory failure: (2) Angioedema: (3) Eosinophilia: (4) Monocytosis: (5) Lymphopenia: PLAN: Plan Acute respiratory failure secondary to angioedema - Etiology is unclear but this is his third episode and his first intubation related to angioedema - Appears to have a previous angioedema with losartan - Is on amlodipine and this also can rarely cause angioedema so would discontinue - Currently intubated and on mechanical ventilation - Wean as able - Check for air leak and readiness for extubation daily - Will utilize Precedex sedation but may need additional agents as well - Solu-Medrol 60 Q8 - Famotidine 20 mg IV twice daily - Benadryl 25 mg every 6 hours - C1 esterase level is pending - Patient should follow-up as an outpatient with correctional corporal if has not already done so Chronic monocytosis - On review of lab patient has had chronically elevated monocyte count - Should follow-up as an outpatient with hematology Chronic eosinophilia - Will review lab patient has a chronically elevated eosinophil count - Should follow-up as an outpatient with hematology Chronic lymphopenia - On review of lab patient has had chronically low lymphocyte count - Should review follow-up as an outpatient with hematology CAD/essential hypertension/hyperlipidemia - most recent cardiac catheterization from 09/03/2022 demonstrated as noted above, diffuse three-vessel disease involving the left anterior descending artery, totally occluded circumflex artery and diffuse disease of the right coronary artery - Will hold oral medications for now and restart accordingly after extubation - As needed labetalol for hypertension - At baseline patient takes amlodipine, carvedilol, isosorbide mononitrate, atorvastatin, and Zetia History of alcoholic cirrhosis - Follows with GI as an outpatient - Per documentation from GI was supposed to be on amlodipine however this is noton his med reconciliation but it has not been completed - It was last filled for 60 days on 09/19/2024 with no refill as of yet History of GI bleed secondary to colonic AVMs - No current issues - Will be on IV famotidine for angioedema Seasonal allergies - Hold home fexofenadine History of gout - Hold home allopurinol until extubated Neuropathy - Hold home gabapentin Depression/anxiety - Hold home fluoxetine - Hold home doxepin History of alcohol abuse - Still drinks a few times a week History of tobacco abuse - Remote and only smoked about a pack a day for 4 years DVT/GI prophylaxis - Lovenox subcu daily 40 mg - Famotidine 20 mg IV push twice daily CODE STATUS - Full code Charges/Coding Visit Charges Inpatient E&M: 28643 Init Hosp L2 12/27/24 1452 <Electronically signed by Flakita Florentino DO> Cosigner Signature (if applicable): CC: Dr. Valeriano Beasley MD; Dr. Flakita Florentino DO~ Signed [facility] Work Phone: Hospital Discharge instructions No data available for this section [facility] Note* FRANKLIN VAUGHN MD: SIGN, VERIFY Event Display: Percut Transluminal Coronary Angioplasty Authored Date: [facility] Progress note No data available for this section [facility] Progress note Author Dr. Crespo [facility] September 10, 2022 1:29pm Note Date/Time September 10, 2022 1:29pm [facility] Medical Records Department [address] [place] [id number] Progress Note - Hospitalist 09/10/22 1328 MR#: [id number] Acct: [id number] Name: NAZARIO HUTTON Rep #:[id number] : 1950 71 From: Obdulio goyal MD PCP: Dr. Valeriano Beasley MD Status:ADM IN Location: [place] [address] Subjective Subjective This progress note is for 09/09/2022, the discharge summary was done on that day but then he did not go home Doing well, no issues overnight Objective Data Objective Data Vital Signs: Vital Signs Temp Pulse Resp BP Pulse Ox O2 Del Method O2 Flow Rate 98.9 F 81 18 141/85 H 95 Room Air 2 09/10/22 11:00 09/10/22 11:00 09/10/22 11:00 09/10/22 11:00 09/10/22 11:00 09/10/22 11:00 09/04/22 17:45 Oxygen Flow Rate (L/min) 2 Oxygen Delivery Method Room Air Weight: 199 lb 15.348 oz Body Mass Index (BMI) 26.9 Intake & Output: Intake and Output for Last 24 Hours 09/09/22 09/10/22 09/11/22 03:59 03:59 03:59 Intake Total 2500 / 2500 560 / 560 Output Total 300 / 300 Balance 2500 / 2500 260 / 260 Lab / Micro Data Result Diagrams: 09/09/22 05:30 09/08/22 06:30 Labs: Laboratory Results - last 24 hr 09/09/22 20:50: D-Dimer Quant (PE/DVT) 3.21 H* Micro: Microbiology 09/02/22 22:40 Stool Stool Lactoferrin - Final 09/02/22 22:40 Stool Enteric Bacteriology - Final 09/02/22 22:40 Stool C. difficile DNA Amplification - Final Physical Exam Narrative General: Alert, Oriented x3, Cooperative, No apparent distress HEENT: Atraumatic, PERRLA, EOMI, Normocephalic Oral: Moist Mucosa Neck: Supple, No JVD Lungs: Diminished, Normal air movement, No rhonchi, No wheeze, No rales Cardiovascular: Regular rate, Regular Rhythm, Normal S1, Normal S2, No murmurs Abdomen: Soft, Non Tender, Non-Distended, No Hepato-splenomegaly Extremities: No edema, Capillary Refill Less than 3 Seconds Skin: No rashes, No breakdown Musculoskeletal: No Tenderness to Palpation of Joints or Extremities Neurological: Cranial nerves II-XII grossly intact, Motor Exam 5/5 strength throughout, Sensory exam intact to light touch and pain Psych/Mental Status: Normal Affect, Appropriate Assessment & Plan Assessment/Plan (1) NSTEMI (non-ST elevated myocardial infarction): (2) Bloody diarrhea: (3) Acute blood loss anemia: PLAN: Plan #Rectal bleeding with acute on chronic anemia and hypotension/non-STEMI type II with a history of CAD status post stents/HTN/HLD * admitted with a complaints of rectal bleeding. * had colonoscopy which showed diverticulosis in the recto sigmoid colon, sigmoid, descending colon and at the splenic flexure and transverse colon; 2 bleeding colonic angiodysplastic lesions which were treated argon plasma coagulation. * GI on board * Will give him another dose of IV iron and repeat hemoglobin in the morning * Will start him on a cardiac diet as it does not appear that he is bleeding anymore and see how he tolerates * PT and OT evaluated and did not feel as needed SNF * Transfused 2 units of PRBCs * Heart cath demonstrates coronary artery disease, with previous stents showing mild in-stent stenoses within the LAD and then a totally occluded left circumflex artery and a diffuse disease of the right coronary artery * on statin, atenolol. Aspirin and plavix on hold. * 2D echo showed EF of 50% with mild segmental systolic dysfunction. Records requested from [facility] * Appreciate cardiology's assistance, will restart Plavix by itself in about a week #Acute alcohol withdrawal * patient has a history of heavy alcohol use, and drinks 4-6 drinks daily. * alcohol withdrawal protocol with ativan. * on folic acid, thiamine and multivitamin. DVT: SCDs Charges/Coding Visit Charges Inpatient E&M: 14012 Subs Hosp L2 09/10/22 1329 <Electronically signed by Obdulio Crespo MD> Cosigner Signature (if applicable): CC: ~ Signed [facility] Work Phone: Reqzrg for referral (narrative)No reason for referral information availableWPremier Health [facility] Work Phone: Reeyfu for visit Narrative* Diagnostic Procedure Only (Routine) - Closed Specialty Diagnoses / Procedures Referred By Lisandroac t Referred To Contact XR IMAGING Diagnoses Monoclonal gammopathy Procedures XR BONE SURVEY ROUTINE RADIOLOGIC EXAMINATION OSSEOUS SURVEY COMPL Stephanie Roy, [address] [place] [address] Phone: tel: fax: [facility] [place] [address] Referral ID Status Reason Start Date Expiration Date V isits Requested Visits Authorized [id number] Closed Auto-Generate d Referral 10/23/2024 11/22/2025 1 1 [facility] Reason for Referral Specialty Diagnoses / Procedures Referred By Contac t Referred To Contact Rheumatology Diagnoses Positive GALLO (antinuclear antibody) Procedures CONSULT TO RHEUM/IMMUN DISEASE OFFICE/OUTPATIENT [facility] 60 MINUTES Patria Khanna Jr., MD [address] [place] [address] Referral ID Status Reason Start Date Expiration Date Visits Requested Visits Authorized [id number] Authorized PCP Requested Referral 08/30/2024 08/30/2025 1 1 Specialty Diagnoses / Procedures Referred By Contac t Referred To Contact Allergy Diagnoses Angioedema, subsequent encounter Procedures CONSULT TO ALLERGY/IMMUNOLOGY OFFICE/OUTPATIENT [facility] MDM 60 MINUTES Valeriano Beasley MD [address] [place] [address] Referral ID Status Reason Start Date Expiration Date Visits Requested Visits Authorized [id number] Authorized PCP Requested Referral 07/31/2024 07/31/2025 1 1 Specialty Diagnoses / Procedures Referred By Contac t Referred To Contact Gastroenterology Diagnoses Liver fibrosis Procedures CONSULT TO GASTROENTEROLOGY OFFICE/OUTPATIENT [facility] 60 MINUTES Suzanna Dawson PA-C [address] [place] [address] Referral ID Status Reason Start Date Expiration Date Visits Requested Visits Authorized [id number] Authorized PCP Requested Referral 05/15/2025 1 1 Specialty Diagnoses / Procedures Referred By Contac t Referred To Contact Vascular Surgery Diagnoses Stenosis of carotid artery, unspecified laterality Procedures CONSULT TO VASCULAR SURGERY OFFICE/OUTPATIENT [facility] 60 MINUTES Patria Khanna Jr., MD [address] [place] [address] [address] [place] [address] Referral ID Status Reason Start Date Expiration Date Visits Requested Visits Authorized [id number] Authorized PCP Requested Referral 02/07/2024 02/06/2025 1 1 Specialty Diagnoses / Procedures Referred By Contac t Referred To Contact CT IMAGING Diagnoses Occlusion and stenosis of unspecified carotid artery Procedures CTA NECK W IVCON CT ANGIOGRAPHY NECK W/CONTRAST/NONCONTRAST Patria Khanna Jr., MD [address] [facility] [address] [place] [address] [place] [address] Referral ID Status Reason Start Date Expiration Date Visits Requested Visits Authorized [id number] New Request Auto-Generat ed Referral 02/07/2024 03/08/2025 1 1 Specialty Diagnoses / Procedures Referred By Contac t Referred To Contact CT IMAGING Diagnoses Occlusion and stenosis of unspecified carotid artery Procedures CTA HEAD W IVCON CT ANGIOGRAPHY HEAD W/CONTRAST/NONCONTRAST Patria Khanna Jr., MD [address] [facility] [address] [place] [address] [place] [address] Referral ID Status Reason Start Date Expiration Date Visits Requested Visits Authorized [id number] New Request Auto-Generat ed Referral 02/07/2024 03/08/2025 1 1 Specialty Diagnoses / Procedures Referred By Contac t Referred To Contact CT IMAGING Diagnoses Stenosis of carotid artery, unspecified laterality Procedures CTA NECK W IVCON CT ANGIOGRAPHY NECK W/CONTRAST/NONCONTRAST Patria Khanna Jr., MD [address] [facility] [address] [place] [address] [place] [address] Referral ID Status Reason Start Date Expiration Date Visits Requested Visits Authorized [id number] New Request Auto-Generat ed Referral 02/07/2024 03/08/2025 1 1 Specialty Diagnoses / Procedures Referred By Contac t Referred To Contact CT IMAGING Diagnoses Stenosis of carotid artery, unspecified laterality Procedures CTA HEAD W IVCON CT ANGIOGRAPHY HEAD W/CONTRAST/NONCONTRAST Patria Khanna Jr., MD [address] [facility] [address] [place] [address] [place] [address] Referral ID Status Reason Start Date Expiration Date Visits Requested Visits Authorized [id number] New Request Auto-Generat ed Referral 02/07/2024 03/08/2025 1 1 Specialty Diagnoses / Procedures Referred By Contac t Referred To Contact MR IMAGING Diagnoses Other symptoms and signs involving the nervous system Procedures MRA CAROTID WO IVCON MRA, NECK; W/O CONTRAST Patria Khanna Jr., MD [address] [facility] [address] [place] [address] [place] [address] Referral ID Status Reason Start Date Expiration Date Visits Requested Visits Authorized [id number] Authorized Auto-Generat ed Referral 01/01/2024 01/30/2025 1 1 Specialty Diagnoses / Procedures Referred By Contac t Referred To Contact MR IMAGING Diagnoses Other symptoms and signs involving the nervous system Procedures MRA BRAIN WO IVCON MRA, HEAD W/O CONTRAST Patria Khanna Jr., MD [address] [facility] [address] [place] [address] [place] [address] Referral ID Status Reason Start Date Expiration Date Visits Requested Visits Authorized [id number] Authorized Auto-Generat ed Referral 01/01/2024 01/30/2025 1 1 Specialty Diagnoses / Procedures Referred By Contac t Referred To Contact MR IMAGING Diagnoses Other symptoms and signs involving the nervous system Procedures MRI BRAIN WO IVCON MRI BRAIN BRAIN STEM W/O CONTRAST MATERIAL Patria Khanna Jr., MD [address] [facility] [address] [place] [address] [place] [address] Referral ID Status Reason Start Date Expiration Date Visits Requested Visits Authorized [id number] Authorized Auto-Generat ed Referral 01/01/2024 01/30/2025 1 1 Specialty Diagnoses / Procedures Referred By Contac t Referred To Contact Urology Diagnoses Renal stones Hydronephrosis, unspecified hydronephrosis type Procedures CONSULT TO UROLOGY OFFICE/OUTPATIENT [facility] 60 MINUTES Valeriano Beasley MD [facility] [place] [address] Referral ID Status Reason Start Date Expiration Date Visits Requested Visits Authorized [id number] Authorized PCP Requested Referral 10/17/2023 08/29/2024 1 1 Specialty Diagnoses / Procedures Referred By Contac t Referred To Contact CT IMAGING Diagnoses Other specified disorders of kidney and ureter Kidney lesion Procedures CT KIDNEY WO/W IVCON CT ABDOMEN W & W/O CONTRAST Valeriano Beasley MD [facility] [place] [address] [place] [address] Referral ID Status Reason Start Date Expiration Date Visits Requested Visits Authorized [id number] Authorized Auto-Generat ed Referral 08/21/2023 09/19/2024 1 1 Specialty Diagnoses / Procedures Referred By Contac t Referred To Contact Neurology Diagnoses Balance problems Atrophy of muscle of right shoulder Atrophy of muscle of other site Procedures CONSULT TO NEUROLOGY OFFICE/OUTPATIENT [facility] 60-74 MINUTES Valeriano Beasley MD [address] [place] [address] Referral ID Status Reason Start Date Expiration Date Visits Requested Visits Authorized [id number] Pending Review PCP Requested Referral 04/20/2023 04/19/2024 1 1 Specialty Diagnoses / Procedures Referred By Contac t Referred To Contact Cardiology Diagnoses Myocardial infarction involving left anterior descending (LAD) coronary artery, unspecified SD type (HCC) Procedures CONSULT TO CARDIOLOGY OFFICE/OUTPATIENT [facility] 60-74 MINUTES Tessa Donato, [address] [address] [place] [address] Referral ID Status Reason Start Date Expiration Date Visits Requested Visits Authorized [id number] Pending Review PCP Requested Referral 01/01/2022 01/01/2023 1 1 Chief Complaint and Reason for Visit Chief Complaint S/P PCI W/CORONARY S TENTING to the LAD PCI w/coronary stenting, STEMI Chief Complaint S/P PCI W/CORONARY S TENTING to the LAD PCI w/coronary stenting, STEMI PCI w/coronary stenting, STEMI Chief Complaint PCI w/coronary stent ing, STEMI PCI w/coronary stenting, STEMI PCI w/coronary stenting, STEMI PCI w/coronary stenting, STEMI Chief Complaint PCI w/coronary stent ing, STEMI PCI w/coronary stenting, STEMI PCI w/coronary stenting, STEMI GI BLEED, ABLA, BC, DIARRHEAL ILLNESS GI BLEED, ABLA, BC, DIARRHEAL ILLNESS PREOP GI BLEED, ABLA, BC, DIARRHEAL ILLNESS GI BLEED, ABLA, BC, DIARRHEAL ILLNESS GI BLEED, ABLA, BC, DIARRHEAL ILLNESS GI BLEED, ABLA, BC, DIARRHEAL ILLNESS GI BLEED, ABLA, BC, DIARRHEAL ILLNESS GI BLEED, ABLA, BC, DIARRHEAL ILLNESS GI BLEED, ABLA, BC, DIARRHEAL ILLNESS GI BLEED, ABLA, BC, DIARRHEAL ILLNESS GI BLEED, ABLA, BC, DIARRHEAL ILLNESS GI BLEED, ABLA, BC, DIARRHEAL ILLNESS GI BLEED, ABLA, BC, DIARRHEAL ILLNESS GI BLEED, ABLA, BC, DIARRHEAL ILLNESS GI BLEED, ABLA, BC, DIARRHEAL ILLNESS GI BLEED, ABLA, BC, DIARRHEAL ILLNESS GI BLEED, ABLA, BC, DIARRHEAL ILLNESS GI BLEED, ABLA, BC, DIARRHEAL ILLNESS GI BLEED, ABLA, BC, DIARRHEAL ILLNESS GI BLEED, ABLA, BC, DIARRHEAL ILLNESS Reason for Visit Acute blood loss ane june BC (acute kidney injury) Bloody diarrhea Chest pain History of hypertension Leukocytosis NSTEMI (non-ST elevated myocardial infarction) Chief Complaint GI BLEED, ABLA, BC, DIARRHEAL ILLNESS GI BLEED, ABLA, BC, DIARRHEAL ILLNESS PREOP GI BLEED, ABLA, BC, DIARRHEAL ILLNESS GI BLEED, ABLA, BC, DIARRHEAL ILLNESS GI BLEED, ABLA, BC, DIARRHEAL ILLNESS GI BLEED, ABLA, BC, DIARRHEAL ILLNESS GI BLEED, ABLA, BC, DIARRHEAL ILLNESS GI BLEED, ABLA, BC, DIARRHEAL ILLNESS GI BLEED, ABLA, BC, DIARRHEAL ILLNESS GI BLEED, ABLA, BC, DIARRHEAL ILLNESS GI BLEED, ABLA, BC, DIARRHEAL ILLNESS GI BLEED, ABLA, BC, DIARRHEAL ILLNESS GI BLEED, ABLA, BC, DIARRHEAL ILLNESS GI BLEED, ABLA, BC, DIARRHEAL ILLNESS GI BLEED, ABLA, BC, DIARRHEAL ILLNESS GI BLEED, ABLA, BC, DIARRHEAL ILLNESS GI BLEED, ABLA, BC, DIARRHEAL ILLNESS GI BLEED, ABLA, BC, DIARRHEAL ILLNESS GI BLEED, ABLA, BC, DIARRHEAL ILLNESS GI BLEED, ABLA, BC, DIARRHEAL ILLNESS Amb Documentation ER FU S/P [facility] Reason for Visit BC (acute kidney in jury) Leukocytosis NSTEMI (non-ST elevated myocardial infarction) Atherosclerotic heart disease of [place] coronary artery without angina pectoris Essential hypertension Hyperlipidemia Chief Complaint Anesthesia of skin Anesthesia of skin Chief Complaint Anesthesia of skin Anesthesia of skin LUMBAR SPINE Xray room 3 9 M FU E ORDERS Reason for Visit Neuropathy Other intervertebral disc degeneration, 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 Dizziness Essential hypertension Hyperlipidemia SOB (shortness of breath) Chief Complaint LUMBAR SPINE Xray room 3 9 M FU E ORDERS Dizziness and giddiness Amb Documentation Reason for Visit Neuropathy Other intervertebral disc degeneration, 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 Dizziness Essential hypertension Hyperlipidemia SOB (shortness of breath) Chief Complaint Admit Date allegic reaction Patricio 26th, 2024 10:15am CIRRHOSIS, R/O HCC, ASCITES, SPLEENOMEGA LY September 06, 2024 4:02pm 3 M FU September 19, 2024 1:55pm PRE OP September 26, 2024 1:10 pm Reason for Visit Admit Date Kidney stone on left side September 19, 2024 1:55pm Cirrhosis, alcoholic September 19, 2024 1:55pm Hx of lower gastrointestinal bleeding Fe bruary 2024 1:55pm Chief Complaint Admit Date allegic reaction July 18, 2024 10:15am CIRRHOSIS, R/O HCC, ASCITES, SPLEENOMEGA LY September 06, 2024 4:02pm 3 M FU September 19, 2024 1:55pm PRE OP September 26, 2024 1:10 pm CALCULUS OF URETER October 11, 2024 3:4 1pm Chief Complaint Admit Date allegic reaction July 18, 2024 10:15am CIRRHOSIS, R/O HCC, ASCITES, SPLEENOMEGA LY September 06, 2024 4:02pm 3 M FU September 19, 2024 1:55pm PRE OP September 26, 2024 1:10 pm CALCULUS [place] October 11, 2024 3:4 1pm 6 M FU November 05, 2024 12: 58pm Reason for Visit Admit Date Kidney stone on left side September 19, 2024 1:55pm Cirrhosis, alcoholic September 19, 2024 1:55pm Hx of lower gastrointestinal bleeding Fe bruary 2024 1:55pm Atherosclerotic heart diseas e of [place] coronary artery without angina pectoris November 05, 2024 12:58pm Essential hypertension November 05, 2024 12:58pm Hyperlipidemia November 05, 2024 12: 58pm Chief Complaint Admit Date CIRRHOSIS, R/O HCC, ASCITES, SPLEENOMEGA LY September 06, 2024 4:02pm 3 M FU September 19, 2024 1:55pm PRE OP September 26, 2024 1:10 pm [place] October 11, 2024 3:4 1pm 6 M FU November 05, 2024 12: 58pm ACUTE RESPIRATORY FAILURE 2/2 ANGIOEDEMA December 27, 2024 1:58pm SWOLLEN TONGUE December 27, 2024 2:11p m Reason for Visit Admit Date Kidney stone on left side September 19, 2024 1:55pm Cirrhosis, alcoholic September 19, 2024 1:55pm Hx of lower gastrointestinal bleeding Fe bruary 2024 1:55pm Atherosclerotic heart diseas e of [place] coronary artery without angina pectoris November 05, 2024 12:58pm Essential hypertension November 05, 2024 12:58pm Hyperlipidemia November 05, 2024 12: 58pm Acute respiratory failure December 27, 2024 1:58pm Angioedema December 27, 2024 1:58p m Eosinophilia December 27, 2024 1:58p m Hypotension due to drugs December 27, 2024 1:58pm Lymphopenia December 27, 2024 1:58p m Monocytosis December 27, 2024 1:58p m Chief Complaint Admit Date CIRRHOSIS, R/O HCC, ASCITES, SPLEENOMEGA LY September 06, 2024 4:02pm 3 M FU September 19, 2024 1:55pm PRE OP September 26, 2024 1:10 pm CAL[place]UL[place] October 11, 2024 3:4 1pm 6 M FU November 05, 2024 12: 58pm ACUTE RESPIRATORY FAILURE 2/2 ANGIOEDEMA December 27, 2024 1:58pm SWOLLEN TONGUE December 27, 2024 2:11p m ACUTE RESPIRATORY FAILURE 2/2 ANGIOEDEMA December 28, 2024 7:51am ACUTE RESPIRATORY FAILURE 2/2 ANGIOEDEMA December 29, 2024 7:18am ACUTE RESPIRATORY FAILURE 2/2 ANGIOEDEMA December 30, 2024 7:03am ACUTE RESPIRATORY FAILURE 2/2 ANGIOEDEMA December 30, 2024 8:54am Chief Complaint Admit Date PRE OP September 26, 2024 1:10 pm CALCULUS [place] October 11, 2024 3:4 1pm 6 M FU November 05, 2024 12: 58pm ACUTE RESPIRATORY FAILURE 2/2 ANGIOEDEMA December 27, 2024 1:58pm SWOLLEN TONGUE December 27, 2024 2:11p m ACUTE RESPIRATORY FAILURE 2/2 ANGIOEDEMA December 28, 2024 7:51am ACUTE RESPIRATORY FAILURE 2/2 ANGIOEDEMA December 29, 2024 7:18am ACUTE RESPIRATORY FAILURE 2/2 ANGIOEDEMA December 30, 2024 7:03am ACUTE RESPIRATORY FAILURE 2/2 ANGIOEDEMA December 30, 2024 8:54am GI BLEED January 23, 2025 9:44p m Reason for Visit Admit Date Atherosclerotic heart diseas e of [place] coronary artery without angina pectoris November 05, 2024 12:58pm Essential hypertension November 05, 2024 12:58pm Hyperlipidemia November 05, 2024 12: 58pm Acute respiratory failure December 27, 2024 1:58pm Angioedema December 27, 2024 1:58p m Eosinophilia December 27, 2024 1:58p m Hypotension due to drugs December 27, 2024 1:58pm Lymphopenia December 27, 2024 1:58p m Monocytosis December 27, 2024 1:58p m Advance Directives Advance Directive Response Recorded Date/ Time Living Will Yes March 25, 022 2:44pm Power of Assistant Corporate Controller Yes March 25, 2022 2:44pm Advance Directives on File No Septe [email or web address] 2:44pm Advance Directive Response Recorded Date/ Time Living Will Yes March 25 1:44pm Power of Assistant Corporate Controller Yes March 25, 2022 1:44pm Advance Directive Response Recorded Date/ Time Name of Medical Power of Assistant Corporate Controller son --Ye September 02, 2022 3:31pm Living Will Yes September 02 023 3:31pm Power of Assistant Corporate Controller Yes September 02, 2022 3:31pm Advance Directive Response Recorded Date/ Time Name of Medical Power of Assistant Corporate Controller son --Ye September 02, 2022 4:31pm Living Will Yes 2022 1:35pm Power of Assistant Corporate Controller Yes October 19 1:35pm Advance Directive Response Recorded Date/ Time Living Will Yes 2022 12:35pm Power of Assistant Corporate Controller Yes October 19 12:35pm Advance Directive Response Recorded Date/ Time Living Will Yes August 23 3:18pm Power of Assistant Corporate Controller Yes August 23, 2023 3:18pm Advance Directive Response Recorded Date/ Time Living Will Yes August 23 4:18pm Power of Assistant Corporate Controller Yes August 23, 2023 4:18pm Advance Directive Response Recorded Date/ Time Living Will Yes July 18 024 11:19am Power of Assistant Corporate Controller Yes July 18, 2024 11:19am Name of Medical Power of Assistant Corporate Controller jae matiascesar [email or web address] July 18, 2024 11:19am Advance Directive Response Recorded Date/ Time Living Will Yes July 18 11:19am Do you have a Healthcare Pow er of Assistant Corporate Controller? Yes July 18, 2024 11:19am Name of Medical Power of Assistant Corporate Controller emeka marvin July 18, 2024 11:19am Advance Directive Response Recorded Date/ Time Do you have a Healthcare Power of Assistant Corporate Controller? No December 27, 2024 1:13pm Advance Directive Response Recorded Date/ Time Do you have a Healthcare Power of Assistant Corporate Controller? No December 27, 2024 1:13pm Do you have a Healthcare Power of Assistant Corporate Controller? Yes January 23, 2025 9:26pm Family History Relationship Condition Age at Onset Recorded Date/T lacy mother Chronic obstructive pulmonary disease Unk nown Malignant neoplasm of lung Unknown father Cardiac disease Unknown Hypertension Unknown Myocardial infarction Unknown Summary Purpose Additional Source Comments Care Team (unrecognized sect ion and content) Sales Representative Supervisor Relationship Specialty Start Date End Date Valeriano Beasley MD [address] [place] [address] PCP - General Family Practice 03/15/21 Sales Representative Supervisor Relationship Specialty Start Date End Date Valeriano Beasley MD [facility] [place] [address] PCP - General Family Practice 03/15/21 Sales Representative Supervisor Relationship Specialty Start Date End Date Valeriano Beasley MD [facility] [place] [address] PCP - General Family Practice 03/15/21 Sales Representative Supervisor Relationship Specialty Start Date End Date Valeriano Beasley MD [facility] [place] [address] PCP - General Family Medicine 03/15/21 Sales Representative Supervisor Relationship Specialty Start Date End Date Valeriano Beasley MD [facility] [place] [address] PCP - General Family Medicine 03/15/21 Sales Representative Supervisor Relationship Specialty Start Date End Date Valeriano Beasley MD [facility] [place] [address] PCP - General Family Medicine 03/15/21 Sales Representative Supervisor Relationship Specialty Start Date End Date Valeriano Beasley MD [address] [place] [address] PCP - General Family Medicine 03/15/21 Team Status: Active Member Role Status Dates Dr. Jerad Moss III, MD Family Provider Active Dr. Valeriano Beasley MD Primary Care Provider Active Team Status: Active Member Role Status Dates Dr. Valeriano Beasley MD Primary Care Provider Active Dr. Marino Holguin MD Emergency Provider Active Dr. Jael Ramos MD Admit Provider, Other Provider Active Dr. Ahmet Chacon DO Attending Provider Active Team Status: Active Member Role Status Dates Dr. Valeriano Beasley MD Primary Care Provider Active Dr. Ahmet Chacon DO Attending Provider Active Team Status: Active Member Role Status Dates Dr. Valeriano Beasley MD Primary Care Provider Active Dr. Lukas Cuevas MD Attending Provider Active Team Status: Active Member Role Status Dates Dr. Valeriano Beasley MD Primary Care Provider Active Dr. Marino Holguin MD Emergency Provider Active Dr. Jael Ramos MD Admit Provider, Other Provider Active Dr. Melissa Corbin MD Other Provider Active Dr. Lukas Cuevas MD Attending Provider, Other Provide r Active Team Status: Active Member Role Status Dates Dr. Valeriano Beasley MD Primary Care Provider Active Dr. Marino Holguin MD Emergency Provider Active Dr. Jael Ramos MD Admit Provider, Other Provider Active Dr. Melissa Corbin MD Other Provider Active Dr. Lukas Cuevas MD Other Provider Active Dr. Ahmet Chacon DO Attending Provider Active Team Status: Active Member Role Status Dates Dr. Valeriano Beasley MD Primary Care Provider Active Dr. Marino Holguin MD Emergency Provider Active Dr. Jael Ramos MD Admit Provider, Other Provider Active Dr. Melissa Corbin MD Attending Provider, Other Prov ider Active Dr. Lukas Cuevas MD Other Provider Active Team Status: Active Member Role Status Dates Dr. Valeriano Beasley MD Primary Care Provider Active Dr. Marino Holguin MD Emergency Provider Active Dr. Jael Ramos MD Admit Provider, Other Provider Active Dr. Lukas Cuevas MD Attending Provider, Other Provide r Active Dr. Obdulio Crespo MD Other Provider Active Dr. Melissa Corbin MD Other Provider Active Team Status: Active Member Role Status Dates Dr. Valeriano Beasley MD Primary Care Provider Active Dr. Marino Holguin MD Emergency Provider Active Dr. Jael Ramos MD Admit Provider, Other Provider Active Dr. Lukas Cuevas MD Other Provider Active Dr. Melissa Corbin MD Other Provider Active Dr. Obdulio Crespo MD Attending Provider, Other Provider Active Team Status: Active Member Role Status Dates Dr. Valeriano Beasley MD Primary Care Provider Active Dr. Marino Holguin MD Emergency Provider Active Dr. Jael Ramos MD Admit Provider, Other Provider Active Dr. Lukas Cuevas MD Other Provider Active Dr. Melissa Corbin MD Other Provider Active Dr. Obdulio Crespo MD Other Provider Active Dr. Ahmet Chacon DO Attending Provider Active Team Status: Active Member Role Status Dates Dr. Valeriano Beasley MD Primary Care Provider Active Dr. Marino Holguin MD Emergency Provider Active Dr. Jael Ramos MD Admit Provider, Other Provider Active Dr. Lukas Cuevas MD Attending Provider, Other Provide r Active Dr. Melissa Corbin MD Other Provider Active Dr. Obdulio Crespo MD Other Provider Active Team Status: Active Member Role Status Dates Dr. Valeriano Beasley MD Primary Care Provider Active Dr. Lukas Cueavs MD Attending Provider Active Dr. Jael Ramos MD Referring Provider Active Team Status: Inactive Member Role Status Dates Dr. Valeriano Beasley MD Primary Care Provider Active Dr. Franklin Nicolas MD Attending Provider, Referring Pr ovider Active Team Status: Inactive Member Role Status Dates Dr. Valeriano Beasley MD Primary Care Provider Active Dr. Franklin Nicolas MD Attending Provider, Referring Pr ovider Active Out of Town Doctor Active Team Status: Inactive Member Role Status Dates Dr. Valeriano Beasley MD Primary Care Provider Active Dr. Marino Holguin MD Emergency Provider Active Dr. Jael Ramos MD Admit Provider, Other Provider Active Dr. Lukas Cuevas MD Other Provider Active Dr. Melissa Corbin MD Other Provider Active Dr. Obdulio Crespo MD Attending Provider Active Sales Representative Supervisor Relationship Specialty Start Date End Date Valeriano Beasley MD [address] [place] [address] PCP - General Family Medicine 03/15/21 Sales Representative Supervisor Relationship Specialty Start Date End Date Valeriano Beasley MD [address] [place] [address] PCP - General Family Medicine 03/15/21 Sales Representative Supervisor Relationship Specialty Start Date End Date Valeriano Beasley MD [address] [place] [address] PCP - General Family Medicine 03/15/21 Sales Representative Supervisor Relationship Specialty Start Date End Date Valeriano Beasley MD [address] [place] [address] PCP - General Family Medicine 03/15/21 Sales Representative Supervisor Relationship Specialty Start Date End Date Valeriano Beasley MD [address] [place] [address] PCP - General Family Medicine 03/15/21 Sales Representative Supervisor Relationship Specialty Start Date End Date Valeriano Beasley MD [address] [place] [address] PCP - General Family Medicine 03/15/21 Sales Representative Supervisor Relationship Specialty Start Date End Date Valeriano Beasley MD [address] [place] [address] PCP - General Family Medicine 03/15/21 Team Status: Active Member Role Status Dates Dr. Valeriano Beasley MD Primary Care Provider Active Dr. Marino Holguin MD Emergency Provider Active Dr. Jael Ramos MD Admit Provider, Other Provider Active Dr. Ahmet Chacon DO Attending Provider Active Dr. Obdulio Crespo MD Referring Provider Active Team Status: Active Member Role Status Dates Dr. Valeriano Beasley MD Primary Care Provider Active Dr. Ahmet Chacon DO Attending Provider Active Dr. Obdulio Crespo MD Referring Provider Active Team Status: Active Member Role Status Dates Dr. Valeriano Beasley MD Primary Care Provider Active Dr. Lukas Cuevas MD Attending Provider Active Dr. Melissa Corbin MD Referring Provider Active Team Status: Active Member Role Status Dates Dr. Valeriano Beasley MD Primary Care Provider Active Dr. Marino Holguin MD Emergency Provider Active Dr. Jael Ramos MD Admit Provider, Other Provider Active Dr. Melissa Corbin MD Other Provider Active Dr. Lukas Cuevas MD Other Provider Active Dr. Ahmet Chacon DO Attending Provider Active Dr. Obdulio Crespo MD Referring Provider Active Team Status: Active Member Role Status Dates Dr. Valeriano Beasley MD Primary Care Provider Active Dr. Marino Holguin MD Emergency Provider Active Dr. Jael Ramos MD Admit Provider, Other Provider Active Dr. Lukas Cuevas MD Other Provider Active Dr. Melissa Corbin MD Other Provider Active Dr. Obdulio Crespo MD Referring Provider, Other Provider Active Dr. Ahmet Chacon DO Attending Provider Active Team Status: Active Member Role Status Dates Dr. Valeriano Beasley MD Primary Care Provider Active Dr. Marino Holguin MD Emergency Provider Active Dr. Jael Ramos MD Admit Provider, Other Provider Active Dr. Lukas Cuevas MD Attending Provider, Referring Provider, Other Provider Active Dr. Melissa Corbin MD Other Provider Active Dr. Obdulio Crespo MD Other Provider Active Team Status: Active Member Role Status Dates Dr. Valeriano Beasley MD Primary Care Provider Active Dr. Jorgito Moss MD Attending Provider Active Dr. Rizwana Hagen MD Referring Provider Active Team Status: Inactive Member Role Status Dates Dr. Valeriano Beasley MD Primary Care Provider, Referri ng Provider Active Dr. Lukas Cuevas MD Attending Provider Active Team Status: Inactive Member Role Status Dates Dr. Valeriano Beasley MD Primary Care Provider, Referri ng Provider Active Xochilt Casanova SILVER SERVICE WAITER, SILVER SERVICE WAITER-C Attending Provider Active Team Status: Active Member Role Status Dates Dr. Valeriano Beasley MD Primary Care Provider Active Liz Navarro Attending Provider Active Team Status: Inactive Member Role Status Dates Dr. Valeriano Beasley MD Primary Care Provider Active Xochilt Casanova SILVER SERVICE WAITER, SILVER SERVICE WAITER-C Attending Provider, Referrin g Provider Active Sales Representative Supervisor Relationship Specialty Start Date End Date Valeriano Beasley MD [address] [place] [address] PCP - General Family Medicine 03/15/21 Sales Representative Supervisor Relationship Specialty Start Date End Date Valeriano Beasley MD [address] [place] [address] PCP - General Family Medicine 03/15/21 Team Status: Active Member Role Status Dates Dr. Valeriano Beasley MD Primary Care Pro vider, Referring Provider, Other Provider Active Dr. Jung Braun MD Attending Provider Active Team Status: Inactive Member Role Status Dates Dr. Valeriano Beasley MD Primary Care Pro vider, Attending Provider, Referring Provider Active Sales Representative Supervisor Relationship Specialty Start Date End Date Valeriano Beasley MD [address] [place] [address] PCP - General Family Medicine 03/15/21 Sales Representative Supervisor Relationship Specialty Start Date End Date Valeriano Beasley MD [address] [place] [address] PCP - General Family Medicine 03/15/21 Sales Representative Supervisor Relationship Specialty Start Date End Date Valeriano Beasley MD [address] [place] [address] PCP - General Family Medicine 03/15/21 Sales Representative Supervisor Relationship Specialty Start Date End Date Valeriano Beasley MD [address] [place] [address] PCP - General Family Medicine 03/15/21 Sales Representative Supervisor Relationship Specialty Start Date End Date Valeriano Beasley MD [address] [place], [place] [id number] PCP - General Family Medicine 03/15/21 Team Status: Inactive Member Role Status Dates Dr. Valeriano Beasley MD Primary Care Provider, Referri ng Provider Active Estefany Thrasher SILVER SERVICE WAITER, SILVER SERVICE WAITER-C Attending Provider Active Team Status: Inactive Member Role Status Dates Dr. Valeriano Beasley MD Primary Care Provider, Referri ng Provider Active Dr. José Miguel Valverde MD Attending Provider Active Team Status: Inactive Member Role Status Dates Dr. Valeriano Beasley MD Primary Care Provider Active Dr. Lukas Cuevas MD Attending Provider Active Team Status: Inactive Member Role Status Dates Dr. Valeriano Beasley MD Primary Care Provider Active Estefany Thrasher SILVER SERVICE WAITER, SILVER SERVICE WAITER-C Attending Provider, Referring P andrzej Active Sales Representative Supervisor Relationship Specialty Start Date End Date Valeriano Beasley MD [address] [place] [address] PCP - General Family Medicine 03/15/21 Team Status: Active Member Role Status Dates Dr. Valeriano Beasley MD Primary Care Provider Active Dr. Alexi Jaime MD Attending Provider Active Team Status: Active Member Role Status Dates Dr. Valeriano Beasley MD Primary Care Provider Active Estefany Thrasher SILVER SERVICE WAITER, SILVER SERVICE WAITER-C Attending Provider Active Sales Representative Supervisor Relationship Specialty Start Date End Date Valeriano Beasley MD [address] [place] [address] PCP - General Family Medicine 03/15/21 Sales Representative Supervisor Relationship Specialty Start Date End Date Valeriano Beasley MD [address] [place], [place] [address] PCP - General Family Medicine 03/15/21 Sales Representative Supervisor Relationship Specialty Start Date End Date Valeriano Beasley MD [address] [place] [address] PCP - General Family Medicine 03/15/21 Sales Representative Supervisor Relationship Specialty Start Date End Date Valeriano Beasley MD [address] [place] [address] PCP - General Family Medicine 03/15/21 Sales Representative Supervisor Relationship Specialty Start Date End Date Valeriano Beasley MD [address] [place] [address] PCP - General Family Medicine 03/15/21 Sales Representative Supervisor Relationship Specialty Start Date End Date Valeriano Beasley MD [address] [place] [address] PCP - General Family Medicine 03/15/21 Sales Representative Supervisor Relationship Specialty Start Date End Date Valeriano Beasley MD [address] [place] [address] PCP - General Family Medicine 03/15/21 Sales Representative Supervisor Relationship Specialty Start Date End Date Valeriano Beasley MD [address] [place] [address] PCP - General Family Medicine 03/15/21 Sales Representative Supervisor Relationship Specialty Start Date End Date Valeriano Beasley MD [address] [place] [address] PCP - General Family Medicine 03/15/21 Sales Representative Supervisor Relationship Specialty Start Date End Date Valeriano Beasley MD [address] [place] [address] PCP - General Family Medicine 03/15/21 Sales Representative Supervisor Relationship Specialty Start Date End Date Valeriano Beasley MD [address] [place] [address] PCP - General Family Medicine 03/15/21 Sales Representative Supervisor Relationship Specialty Start Date End Date Valeriano Beasley MD [address] [place] [address] PCP - General Family Medicine 03/15/21 Sales Representative Supervisor Relationship Specialty Start Date End Date Valeriano Beasley MD [address] [place] [address] PCP - General Family Medicine 03/15/21 Sales Representative Supervisor Relationship Specialty Start Date End Date Valeriano Beasley MD [address] [place] [address] PCP - General Family Medicine 03/15/21 Sales Representative Supervisor Relationship Specialty [place] [address] [place] [address] PCP - General Family Medicine 03/15/21 Sales Representative Supervisor Relationship Specialty Start Date End Date Valeriano Beasley MD [address] [place] [address] PCP - General Family Medicine 03/15/21 Ni Sauceda APRN.CNP [address] [place] [id number] Culinary Specialist Family Medicine 06/29/24 Suzanna Dawson PA-C [address] [place] [address] Culinary Specialist Family Medicine 06/29/24 Sales Representative Supervisor Relationship Specialty Start Date End Date Valeriano Beasley MD [address] [place] [address] PCP - General Family Medicine 03/15/21 Ni Sauceda APRN.COMMERCIAL REVIEW APPRAISER [address] [place] [address] Culinary Specialist Family Medicine 06/29/24 Suzanna Dawson PA-C [address] [place] [address] Culinary Specialist Family Medicine 06/29/24 Sales Representative Supervisor Relationship Specialty Start Date End Date Valeriano Beasley MD [address] [place] [address] PCP - General Family Medicine 03/15/21 Ni Sauceda APRN.COMMERCIAL REVIEW APPRAISER [address] [place] [address] Culinary Specialist Family Medicine 06/29/24 Suzanna Dawson PA-C [address] [place] [address] Culinary Specialist Family Medicine 06/29/24 Sales Representative Supervisor Relationship Specialty Start Date End Date Valeriano Beasley MD [address] [place] [address] PCP - General Family Medicine 03/15/21 Ni Sauceda APRN.COMMERCIAL REVIEW APPRAISER [address] [place] [address] Culinary Specialist Family Medicine 06/29/24 Suzanna Dawson PA-C [address] [place] [address] Culinary Specialist Family Medicine 06/29/24 Sales Representative Supervisor Relationship Specialty Start Date End Date Valeriano Beasley MD [address] [place] [address] PCP - General Family Medicine 03/15/21 Ni Sauceda APRN.COMMERCIAL REVIEW APPRAISER [address] [place] [address] Culinary Specialist Family Medicine 06/29/24 Suzanna Dawson PA-C [address] [place] [address] [facility] 06/29/24 Sales Representative Supervisor Relationship Specialty Start Date End Date Valeriano Beasley MD [address] [place] [address] PCP - General Family Medicine 03/15/21 Ni Sauceda APRN.COMMERCIAL REVIEW APPRAISER [address] [place] [address] [facility] 06/29/24 Suzanna Dawson PA-C [address] [place] [address] [facility] 06/29/24 Sales Representative Supervisor Relationship Specialty Start Date End Date Valeriano Beasley MD [address] [place] [address] PCP - General Family Medicine 03/15/21 Ni Sauceda APRN.COMMERCIAL REVIEW APPRAISER [address] [place] [address] Culinary Specialist Family Medicine 06/29/24 Suzanna Dawson PA-C [address] [place] [address] Culinary Specialist Family Medicine 06/29/24 Sales Representative Supervisor Relationship Specialty Start Date End Date Valeriano Beasley MD [address] [place] [address] PCP - General Family Medicine 03/15/21 Ni Sauceda APRN.COMMERCIAL REVIEW APPRAISER [address] [place] [address] Culinary Specialist Family Medicine 06/29/24 Suzanna Dawson PA-C [address] [place] [address] Culinary Specialist Family [facility] 06/29/24 Sales Representative Supervisor Relationship Specialty Start Date End Date Valeriano Beasley MD [address] [place] [address] PCP - General Family Medicine 03/15/21 Ni Sauceda APRN.COMMERCIAL REVIEW APPRAISER [facility] [place] [address] Culinary Specialist Family Medicine 06/29/24 Suzanna Dawson PA-C [address] [place] [address] Culinary Specialist Family Medicine 06/29/24 Sales Representative Supervisor Relationship Specialty Start Date End Date Valeriano Beasley MD [address] [place] [address] PCP - General Family Medicine 03/15/21 Ni Sauceda APRN.COMMERCIAL REVIEW APPRAISER [address] [place] [address] Culinary Specialist Family [facility] 06/29/24 Suzanna Dawson PA-C [address] [place] [address] [facility] 06/29/24 Sales Representative Supervisor Relationship Specialty Start Date End Date Valeriano Beasley MD [address] [place] [address] PCP - General Family Medicine 03/15/21 Ni Sauceda, [employer].COMMERCIAL REVIEW APPRAISER [address] [place] [address] [facility] 06/29/24 Suzanna Dawson PA-C [address] [place] [address] [facility] 06/29/24 Patria Khanna Jr., MD [address] [place] [address] Neurology 09/25/24 Sales Representative Supervisor Relationship Specialty Start Date End Date Valeriano Beasley MD [address] [place] [address] PCP - General Family Medicine 03/15/21 Ni Sauceda, MANA[employer].COMMERCIAL REVIEW APPRAISER [address] [place] [address] [facility] Family [facility] 06/29/24 Suzanna Dawson PA-C [address] [place] [address] [facility] Family Medicine 06/29/24 Patria Khanna Jr., MD [address] [place] [address] Neurology 09/25/24 Team Status: Active Member Role Status Dates Dr. Valeriano Beasley MD Primary Care Provider Active Team Status: Inactive Member Role Status Dates Dr. Valeriano Beasley MD Primary Care Provider Active Start: July 18, 2024 End: July 18, 2024 Dr. Stan Gilbert DO Attending Provider Active Start: July 18, 2024 End: July 18, 2024 Dr. Stan Gilbert DO Emergency Provider Active Start: July 18, 2024 End: July 18, 2024 Team Status: Inactive Member Role Status Dates Dr. Valeriano Beasley MD Primary Care Provider Active Start: September 06, 2024 End: September 06, 2024 Dr. Shubham Blanco MD Attending Provider Active Start: September 06, 2024 End: September 06, 2024 Dr. Shubham Blanco MD Referring Provider Active Start: September 06, 2024 End: September 06, 2024 Team Status: Inactive Member Role Status Dates Dr. Valeriano Beasley MD Primary Care Provider Active Start: September 12, 2024 End: September 12, 2024 Dr. Shubham Blanco MD Attending Provider Active Start: September 12, 2024 End: September 12, 2024 Dr. Shubham Blanco MD Referring Provider Active Start: September 12, 2024 End: September 12, 2024 Team Status: Inactive Member Role Status Dates Dr. Valeriano Beasley MD Primary Care Provider Active Start: September 19, 2024 End: September 19, 2024 Dr. Vaelriano Beasley MD Referring Provider Active Start: September 19, 2024 End: September 19, 2024 Dr. Shubham Blanco MD Attending Provider Active Start: September 19, 2024 End: September 19, 2024 Team Status: Inactive Member Role Status Dates Dr. Valeriano Beasley MD Primary Care Provider Active Start: September 23, 2024 End: September 23, 2024 Dr. Geovani Barron MD Attending Provider Active Start: September 23, 2024 End: September 23, 2024 Dr. Geovani Barron MD Referring Provider Active Start: September 23, 2024 End: September 23, 2024 Team Status: Active Member Role Status Dates Dr. Valeriano Beasley MD Primary Care Provider Active Start: September 26, 2024 Dr. Geovani Barron MD Attending Provider Active Start: September 26, 2024 Dr. Geovani Barron MD Referring Provider Active Start: September 26, 2024 Team Status: Inactive Member Role Status Dates Dr. Valeriano Beasley MD Primary Care Provider Active Start: September 26, 2024 End: September 26, 2024 Dr. Geovani Barron MD Attending Provider Active Start: September 26, 2024 End: September 26, 2024 Dr. Geovani Barron MD Referring Provider Active Start: September 26, 2024 End: September 26, 2024 Team Status: Inactive Member Role Status Dates Dr. Valeriano Beasley MD Primary Care Provider Active Start: October 11, 2024 End: October 11, 2024 Dr. Geovani Barron MD Attending Provider Active Start: October 11, 2024 End: October 11, 2024 Dr. Geovani Barron MD Referring Provider Active Start: October 11, 2024 End: October 11, 2024 Sales Representative Supervisor Relationship Specialty Start Date End Date Valeriano Beasley MD [address] [place] [id number] PCP - General Family Medicine 03/15/21 Ni Sauceda APRN.CNP [address] [place] [address] [phone] Culinary Specialist Family Medicine 06/29/24 Suzanna Dawson PA-C [address] [place] [address] [id number] Culinary Specialist Family Medicine 06/29/24 Patria Khanna Jr., MD [address] [place] [address] [phone] Neurology 09/25/24 Sales Representative Supervisor Relationship Specialty Start Date End Date Valeriano Beasley MD [facility] [place] [address] PCP - General Family Medicine 03/15/21 Ni Sauceda APRN.COMMERCIAL REVIEW APPRAISER [facility] [place] [address] Culinary Specialist Family Medicine 06/29/24 Suzanna Dawson PA-C [address] [place] [address] Culinary Specialist Family Medicine 06/29/24 Patria Khanna Jr., MD [address] [place] [phone] Neurology 09/25/24 Sales Representative Supervisor Relationship Specialty Start Date End Date Valeriano Beasley MD [facility] [place] [address] PCP - General Family Medicine 03/15/21 Ni Sauceda APRN.COMMERCIAL REVIEW APPRAISER [address] [place] [phone] Culinary Specialist Family Medicine 06/29/24 Suzanna Dawson PA-C [facility] [place] [address] Culinary Specialist Family Medicine 06/29/24 Patria Khanna Jr., MD [facility] [place] [address] Neurology 09/25/24 Sales Representative Supervisor Relationship Specialty Start Date End Date Valeriano Beasley MD [address] [place] [address] PCP - General Family Medicine 03/15/21 Ni Sauceda APRN.COMMERCIAL REVIEW APPRAISER [address] [place] [address] [facility] 06/29/24 Suzanna Dawson PA-C [address] [place] [address] [facility] 06/29/24 Patria Khanna Jr., MD [address] [place] [phone] Neurology 09/25/24 Sales Representative Supervisor Relationship Specialty Start Date End Date Valeriano Beasley MD [address] [place] [address] PCP - General Family Medicine 03/15/21 Ni Sauceda APRN.COMMERCIAL REVIEW APPRAISER [address] [place] [phone] [facility] 06/29/24 Suzanna Dawson PA-C [address] [place] [address] [facility] 06/29/24 Patria Khanna Jr., MD [address] [place] [phone] Neurology 09/25/24 Sales Representative Supervisor Relationship Specialty Start Date End Date Valeriano Beasley MD [address] [place] [address] PCP - General Family Medicine 03/15/21 Ni Sauceda APRN.COMMERCIAL REVIEW APPRAISER [address] [place] [phone] [facility] 06/29/24 Suzanna Dawson PA-C [address] [place], [place] [id number] [facility] 06/29/24 Patria Khanna Jr., MD [address] [place] [address] [phone] Neurology 09/25/24 Team Status: Inactive Member Role Status Dates Dr. Valeriano Beasley MD Primary Care Provider Active Start: November 05, 2024 End: November 05, 2024 Dr. Valeriano Beasley MD Referring Provider Active Start: November 05, 2024 End: November 05, 2024 Estefany Thrasher NP, SILVER SERVICE WAITER-C Attending Provider Active Start: November 05, 2024 End: November 05, 2024 Team Status: Inactive Member Role Status Dates Dr. Valeriano Beasley MD Primary Care Provider Active Start: November 05, 2024 End: November 05, 2024 Dr. Shubham Blanco MD Attending Provider Active Start: November 05, 2024 End: November 05, 2024 Dr. Shubham Blanco MD Referring Provider Active Start: November 05, 2024 End: November 05, 2024 Sales Representative Supervisor Relationship Specialty Start Date End Date Valeriano Beasley MD [address] [place] [id number] PCP - General Family Medicine 03/15/21 Ni Sauceda APRN.COMMERCIAL REVIEW APPRAISER [address] [place] [address] [phone] [facility] 06/29/24 Suzanna Dawosn PA-C [address] [place], [place] [id number] [facility] 06/29/24 Patria Khanna Jr., MD [address] [place] [address] Neurology 09/25/24 Sales Representative Supervisor Relationship Specialty Start Date End Date Valeriano Beasley MD [address] [place] [address] PCP - General Family Medicine 03/15/21 Patria Khanna Jr., MD [address] [place] [phone] Neurology 09/25/24 Ni Sauceda APRN.COMMERCIAL REVIEW APPRAISER [address] [place] [phone] Culinary Specialist Family Medicine 12/23/24 Suzanna Dawson PA-C [address] [place] [address] Culinary Specialist Family Medicine 12/23/24 Sales Representative Supervisor Relationship Specialty Start Date End Date Valeriano Beasley MD [address] [place] [address] PCP - General Family Medicine 03/15/21 Patria Khanna Jr., MD [address] [place] [phone] Neurology 09/25/24 Ni Sauceda APRN.COMMERCIAL REVIEW APPRAISER [address] [place] [phone] Culinary Specialist Family Medicine 12/23/24 Suzanna Dawson PA-C [facility] [place] [address] [facility] Family Medicine 12/23/24 Team Status: Active Member Role Status Dates Dr. Valeriano Beasley MD Primary Care Provider Active Start: December 27, 2024 Dr. Marino Holguin MD Emergency Provider Active Sta rt: December 27, 2024 Dr. Falkita Florentino DO Admit Provider Active Start : December 27, 2024 Dr. Flakita Florentino DO Attending Provider Active S tart: December 27, 2024 Team Status: Active Member Role Status Dates Dr. Valeriano Beasley MD Primary Care Provider Active Start: December 27, 2024 Dr. Marino Holguin MD Emergency Provider Active Sta rt: December 27, 2024 Dr. Flakita Florentino DO Attending Provider Active S tart: December 27, 2024 Team Status: Inactive Member Role Status Dates Dr. Valeriano Besaley MD Primary Care Provider Active Start: December 27, 2024 End: December 30, 2024 Dr. Marino Holguin MD Emergency Provider Active Sta rt: December 27, 2024 End: December 30, 2024 Dr. Flakita Florentino DO Admit Provider Active Start : December 27, 2024 End: December 30, 2024 Dr. Flakita Florentino DO Other Provider Active Start : December 27, 2024 End: December 30, 2024 Dr. Tony Shultz MD Other Provider Active Start: December 27, 2024 End: December 30, 2024 Dr. Ej Murguia MD Other Provider Active Start: December 27, 2024 End: December 30, 2024 Dr. Ricci Ballesteros MD Other Provider Active Star t: December 27, 2024 End: December 30, 2024 Dr. Homer Guzman DO Other Provider Active Start : December 27, 2024 End: December 30, 2024 Dr. Tessa Ty MD Other Provider Active Sta rt: December 27, 2024 End: December 30, 2024 Dr. Joni Garsia MD Other Provider Active St art: December 27, 2024 End: December 30, 2024 Dr. Viktor Francis MD Other Provider Active S tart: December 27, 2024 End: December 30, 2024 Dr. Belia Villanueva MD Other Provider Active Start: December 27, 2024 End: December 30, 2024 Dr. Spike Floyd MD Other Provider Active Start : December 27, 2024 End: December 30, 2024 Dr. Eric Dockery MD Other Provider Active Start: December 27, 2024 End: December 30, 2024 Dr. Jim Marin MD Other Provider Active Start : December 27, 2024 End: December 30, 2024 Dr. Isaebl Hagen MD Other Provider Active Star t: December 27, 2024 End: December 30, 2024 Dr. Jaquelin Singh MD Other Provider Active Sta rt: December 27, 2024 End: December 30, 2024 Dr. Nelda Conde MD Other Provider Active Sta rt: December 27, 2024 End: December 30, 2024 Dr. Kasi Pina MD Other Provider Active Star t: December 27, 2024 End: December 30, 2024 Dr. Juancarlos Rebollar MD Other Provider Active St art: December 27, 2024 End: December 30, 2024 Dr. Drew Gibbons MD Other Provider Active Star t: December 27, 2024 End: December 30, 2024 Dr. Kenan Crawley DO Other Provider Active St art: December 27, 2024 End: December 30, 2024 Dr. Carl Lieberman MD Other Provider Active Start: December 27, 2024 End: December 30, 2024 Dr. Ran Perea MD Other Provider Active St art: December 27, 2024 End: December 30, 2024 Dr. Gregory Hernandez DO Other Provider Active Start: December 27, 2024 End: December 30, 2024 Dr. Mohit Myers MD Other Provider Active Star t: December 27, 2024 End: December 30, 2024 Dr. Patria Crowe MD Other Provider Active Sta rt: December 27, 2024 End: December 30, 2024 Dr. Alexi Olivas DO Attending Provider Active Start: December 27, 2024 End: December 30, 2024 Team Status: Active Member Role Status Dates Dr. Valeriano Beasley MD Primary Care Provider Active Start: December 28, 2024 Dr. Marino Holguin MD Emergency Provider Active Sta rt: December 28, 2024 Dr. Flakita Florentino DO Admit Provider Active Start : December 28, 2024 Dr. Flakita Florentino DO Other Provider Active Start : December 28, 2024 Dr. Tony Shultz MD Other Provider Active Start: December 28, 2024 Dr. Ej Murguia MD Other Provider Active Start: December 28, 2024 Dr. Ricci Ballesteros MD Other Provider Active Star t: December 28, 2024 Dr. Homer Guzman , Other Provider Active Start : December 28, 2024 Dr. Tessa Ty MD Other Provider Active Sta rt: December 28, 2024 Dr. Joni Garsia MD Other Provider Active St art: December 28, 2024 Dr. Viktor Francis MD Other Provider Active S tart: December 28, 2024 Dr. Belia Villanueva MD Other Provider Active Start: December 28, 2024 Dr. Spike Floyd MD Other Provider Active Start : December 28, 2024 Dr. Eric Dockery MD Other Provider Active Start: December 28, 2024 Dr. Jim Marin MD Other Provider Active Start : December 28, 2024 Dr. Isabel Hagen MD Other Provider Active Star t: December 28, 2024 Dr. Jaquelin Singh MD Other Provider Active Sta rt: December 28, 2024 Dr. Nelda Conde MD Other Provider Active Sta rt: December 28, 2024 Dr. Kasi Pina MD Other Provider Active Star t: December 28, 2024 Dr. Juancarlos Rebollar MD Other Provider Active St art: December 28, 2024 Dr. Drew Gibbons MD Other Provider Active Star t: December 28, 2024 Dr. Kenan Crawley DO Other Provider Active St art: December 28, 2024 Dr. Carl Lieberman MD Other Provider Active Start: December 28, 2024 Dr. Ran Perea MD Other Provider Active St art: December 28, 2024 Dr. Gregory Hernandez , Other Provider Active Start: December 28, 2024 Dr. Mohit Myers MD Other Provider Active Star t: December 28, 2024 Dr. Patria Crowe MD Other Provider Active Sta rt: December 28, 2024 Dr. Alexi Olivas DO Attending Provider Active Start: December 28, 2024 Dr. Alexi Olivas DO Other Provider Active Star t: December 28, 2024 Team Status: Active Member Role Status Dates Dr. Valeriano Beasley MD Primary Care Provider Active Start: December 29, 2024 Dr. Marino Holguin MD Emergency Provider Active Sta rt: December 29, 2024 Dr. Flakita Florentino DO Admit Provider Active Start : December 29, 2024 Dr. Flakita Florentino DO Other Provider Active Start : December 29, 2024 Dr. Tony Shultz MD Other Provider Active Start: December 29, 2024 Dr. Ej Murguia MD Other Provider Active Start: December 29, 2024 Dr. Ricci Ballesteros MD Other Provider Active Star t: December 29, 2024 Dr. Homer Guzman DO Other Provider Active Start : December 29, 2024 Dr. Tessa Ty MD Other Provider Active Sta rt: December 29, 2024 Dr. Joni Garsia MD Other Provider Active St art: December 29, 2024 Dr. Viktor Francis MD Other Provider Active S tart: December 29, 2024 Dr. Belia Villanueva MD Other Provider Active Start: December 29, 2024 Dr. Spike Floyd MD Other Provider Active Start : December 29, 2024 Dr. Eric Dockery MD Other Provider Active Start: December 29, 2024 Dr. Jim Marin MD Other Provider Active Start : December 29, 2024 Dr. Isabel Hagen MD Other Provider Active Star t: December 29, 2024 Dr. Jaquelin Singh MD Other Provider Active Sta rt: December 29, 2024 Dr. Nelda Conde MD Other Provider Active Sta rt: December 29, 2024 Dr. Kasi Pina MD Other Provider Active Star t: December 29, 2024 Dr. Juancarlos Rebollar MD Other Provider Active St art: December 29, 2024 Dr. Drew Gibbons MD Other Provider Active Star t: December 29, 2024 Dr. Kenan Crawley DO Other Provider Active St art: December 29, 2024 Dr. Carl Lieberman MD Other Provider Active Start: December 29, 2024 Dr. Ran Perea MD Other Provider Active St art: December 29, 2024 Dr. Gregory Hernandez DO Other Provider Active Start: December 29, 2024 Dr. Mohit Myers MD Other Provider Active Star t: December 29, 2024 Dr. Patria Crowe MD Other Provider Active Sta rt: December 29, 2024 Dr. Alexi Olivas DO Attending Provider Active Start: December 29, 2024 Dr. Alexi Olivas DO Other Provider Active Star t: December 29, 2024 Team Status: Active Member Role Status Dates Dr. Valeriano Beasley MD Primary Care Provider Active Start: December 30, 2024 Dr. Marino Holguin MD Emergency Provider Active Sta rt: December 30, 2024 Dr. Flakita Florentino DO Admit Provider Active Start : December 30, 2024 Dr. Flakita Florentino DO Other Provider Active Start : December 30, 2024 Dr. Tony Shultz MD Other Provider Active Start: December 30, 2024 Dr. Ej Murguia MD Other Provider Active Start: December 30, 2024 Dr. Ricci Ballesteros MD Other Provider Active Star t: December 30, 2024 Dr. Homer Guzman DO Attending Provider Active S tart: December 30, 2024 Dr. Homer Guzman DO Other Provider Active Start : December 30, 2024 Dr. Tessa Ty MD Other Provider Active Sta rt: December 30, 2024 Dr. Joni Garsia MD Other Provider Active St art: December 30, 2024 Dr. Viktor Francis MD Other Provider Active S tart: December 30, 2024 Dr. Belia Villanueva MD Other Provider Active Start: December 30, 2024 Dr. Spike Floyd MD Other Provider Active Start : December 30, 2024 Dr. Eric Dockery MD Other Provider Active Start: December 30, 2024 Dr. Jim Marin MD Other Provider Active Start : December 30, 2024 Dr. Isabel Hagen MD Other Provider Active Star t: December 30, 2024 Dr. Jaquelin Singh MD Other Provider Active Sta rt: December 30, 2024 Dr. Nelda Conde MD Other Provider Active Sta rt: December 30, 2024 Dr. Kasi Pina MD Other Provider Active Star t: December 30, 2024 Dr. Juancarlos Rebollar MD Other Provider Active St art: December 30, 2024 Dr. Drew Gibbons MD Other Provider Active Star t: December 30, 2024 Dr. Kenan Crawley , Other Provider Active St art: December 30, 2024 Dr. Carl Lieberman MD Other Provider Active Start: December 30, 2024 Dr. Ran Perea MD Other Provider Active St art: December 30, 2024 Dr. Gregory Hernandez , Other Provider Active Start: December 30, 2024 Dr. Mohit Myers MD Other Provider Active Star t: December 30, 2024 Dr. Patria Crowe MD Other Provider Active Sta rt: December 30, 2024 Dr. Alexi Olivas , Other Provider Active Star t: December 30, 2024 Team Status: Active Member Role Status Dates Dr. Valeriano Beasley MD Primary Care Provider Active Start: December 30, 2024 Dr. Marino Holguin MD Emergency Provider Active Sta rt: December 30, 2024 Dr. Flakita Florentino DO Admit Provider Active Start : December 30, 2024 Dr. Flakita Florentino DO Other Provider Active Start : December 30, 2024 Dr. Tony Shultz MD Other Provider Active Start: December 30, 2024 Dr. Ej Murguia MD Other Provider Active Start: December 30, 2024 Dr. Ricci Ballesteros MD Other Provider Active Star t: December 30, 2024 Dr. Homer Guzman DO Other Provider Active Start : December 30, 2024 Dr. Tessa Ty MD Other Provider Active Sta rt: December 30, 2024 Dr. Joni Garsia MD Other Provider Active St art: December 30, 2024 Dr. Viktor Francis MD Other Provider Active S tart: December 30, 2024 Dr. Belia Villanueva MD Other Provider Active Start: December 30, 2024 Dr. Spike Floyd MD Other Provider Active Start : December 30, 2024 Dr. Eric Dockery MD Other Provider Active Start: December 30, 2024 Dr. Jim Marin MD Other Provider Active Start : December 30, 2024 Dr. Isabel Hagen MD Other Provider Active Star t: December 30, 2024 Dr. Jaquelin Singh MD Other Provider Active Sta rt: December 30, 2024 Dr. Nelda Conde MD Other Provider Active Sta rt: December 30, 2024 Dr. Kasi Pina MD Other Provider Active Star t: December 30, 2024 Dr. Juancarlos Rebollar MD Other Provider Active St art: December 30, 2024 Dr. Drew Gibbons MD Other Provider Active Star t: December 30, 2024 Dr. Kenan Crawley , Other Provider Active St art: December 30, 2024 Dr. Carl Lieberman MD Other Provider Active Start: December 30, 2024 Dr. Ran Perea MD Other Provider Active St art: December 30, 2024 Dr. Gregory Hernandez DO Other Provider Active Start: December 30, 2024 Dr. Mohit Myers MD Other Provider Active Star t: December 30, 2024 Dr. Patria Crowe MD Other Provider Active Sta rt: December 30, 2024 Dr. Alexi Olivas DO Attending Provider Active Start: December 30, 2024 Dr. Alexi Olivas DO Other Provider Active Star t: December 30, 2024 Sales Representative Supervisor Relationship Specialty Start Date End Date Valeriano Beasley MD [facility] [place] [address] PCP - General Family Medicine 03/15/21 Patria Khanna Jr., MD [address] [place] [address] [phone] Neurology 09/25/24 Ni Sauceda APRN.COMMERCIAL REVIEW APPRAISER [facility] [place], [place] [id number] Culinary Specialist Family Medicine 12/23/24 Suzanna Dawson PA-C [address] [place] [address] [phone] Culinary Specialist Family Medicine 12/23/24 Sales Representative Supervisor Relationship Specialty Start Date End Date Valeriano Beasley MD [address] [place] [address] PCP - General Family Medicine 03/15/21 Ni Sauceda APRN.COMMERCIAL REVIEW APPRAISER [address] [place] [phone] Culinary Specialist Family Medicine 06/29/24 12/08/24 Suzanna Dawson PA-C [address] [place] [phone] Culinary Specialist Family Medicine 06/29/24 12/22/24 Patria Khanna Jr., MD [address] [place] [phone] Neurology 09/25/24 Ni Sauceda APRN.COMMERCIAL REVIEW APPRAISER [address] [place] [phone] Culinary Specialist Family Medicine 12/23/24 Suzanna Dawson PA-C [address] [place] [phone] [facility] Sales Representative Supervisor Relationship Specialty Start Date End Date Valeriano Beasley MD [address] [place] [phone] PCP - General Family Medicine 03/15/21 Ni Sauceda APRN.COMMERCIAL REVIEW APPRAISER [address] [place] [address] [phone] Culinary Specialist Family Medicine 06/29/24 12/08/24 Suzanna Dawson PA-C [facility] [place] [address] [facility] 06/29/24 12/22/24 Patria Khanna Jr., MD [address] [place], [place] 356691 Neurology 09/25/24 Ni Sauceda, SUNIL.COMMERCIAL REVIEW APPRAISER [address] [place], [place] [phone] [facility] 12/23/24 Suzanna Dawson PA-C [address] [place], [place] [id number] [facility] 12/23/24 Sales Representative Supervisor Relationship Specialty Start Date End Date Valeriano Beasley MD [address] [place], [place] [id number] PCP - General Family Medicine 03/15/21 Patria Khanna Jr., MD [address] [place] [address] [phone] Neurology 09/25/24 iN Sauceda, SUNIL.COMMERCIAL REVIEW APPRAISER [address] [place] [address] [phone] [facility] 12/23/24 Suzanna Dawson PA-C [address] [place] [address] [facility] 12/23/24 Team Status: Active Member Role/Relationship Status Dates Dr. Valeriano Beasley MD Primary Care Provider Active Team Status: Inactive Member Role/Relationship Status Dates Dr. Valeriano Beasley MD Primary Care Provider Active Start: September 26, 2024 End: September 26, 2024 Dr. Geovani Barron MD Attending Provider Active Start: September 26, 2024 End: September 26, 2024 Dr. Geovani Barron MD Referring Provider Active Start: September 26, 2024 End: September 26, 2024 Team Status: Inactive Member Role/Relationship Status Dates Dr. Valeriano Beasley MD Primary Care Provider Active Start: October 11, 2024 End: October 11, 2024 Dr. Geovani Barron MD Attending Provider Active Start: October 11, 2024 End: October 11, 2024 Dr. Geovani Barron MD Referring Provider Active Start: October 11, 2024 End: October 11, 2024 Team Status: Inactive Member Role/Relationship Status Dates Dr. Valeriano Beasley MD Primary Care Provider Active Start: November 05, 2024 End: November 05, 2024 Dr. Valeriano Beasley MD Referring Provider Active Start: November 05, 2024 End: November 05, 2024 Estefany Thrasher NP, SILVER SERVICE WAITER-C Attending Provider Active Start: November 05, 2024 End: November 05, 2024 Team Status: Inactive Member Role/Relationship Status Dates Dr. Valeriano Beasley MD Primary Care Provider Active Start: November 05, 2024 End: November 05, 2024 Dr. Shubham Blanco MD Attending Provider Active Start: November 05, 2024 End: November 05, 2024 Dr. Shubham Blanco MD Referring Provider Active Start: November 05, 2024 End: November 05, 2024 Team Status: Inactive Member Role/Relationship Status Dates Dr. Valeriano Beasley MD Primary Care Provider Active Start: December 27, 2024 End: December 30, 2024 Dr. Marino Holguin MD Emergency Provider Active Sta rt: December 27, 2024 End: December 30, 2024 Dr. Flakita Florentino DO Admit Provider Active Start : December 27, 2024 End: December 30, 2024 Dr. Flakita Florentino DO Other Provider Active Start : December 27, 2024 End: December 30, 2024 Dr. Tony Shultz MD Other Provider Active Start: December 27, 2024 End: December 30, 2024 Dr. Ej Murguia MD Other Provider Active Start: December 27, 2024 End: December 30, 2024 Dr. Ricci Ballesteros MD Other Provider Active Star t: December 27, 2024 End: December 30, 2024 Dr. Homer Guzman DO Other Provider Active Start : December 27, 2024 End: December 30, 2024 Dr. Tessa Ty MD Other Provider Active Sta rt: December 27, 2024 End: December 30, 2024 Dr. Joni Garsia MD Other Provider Active St art: December 27, 2024 End: December 30, 2024 Dr. Viktor Francis MD Other Provider Active S tart: December 27, 2024 End: December 30, 2024 Dr. Belia Villanueva MD Other Provider Active Start: December 27, 2024 End: December 30, 2024 Dr. Spike Floyd MD Other Provider Active Start : December 27, 2024 End: December 30, 2024 Dr. Eric Dockery MD Other Provider Active Start: December 27, 2024 End: December 30, 2024 Dr. Jim Marin MD Other Provider Active Start : December 27, 2024 End: December 30, 2024 Dr. Isabel Hagen MD Other Provider Active Star t: December 27, 2024 End: December 30, 2024 Dr. Jaquelin Singh MD Other Provider Active Sta rt: December 27, 2024 End: December 30, 2024 Dr. Nelda Conde MD Other Provider Active Sta rt: December 27, 2024 End: December 30, 2024 Dr. Kasi Pina MD Other Provider Active Star t: December 27, 2024 End: December 30, 2024 Dr. Juancarlos Rebollar MD Other Provider Active St art: December 27, 2024 End: December 30, 2024 Dr. Drew Gibbons MD Other Provider Active Star t: December 27, 2024 End: December 30, 2024 Dr. Kenan Crawley DO Other Provider Active St art: December 27, 2024 End: December 30, 2024 Dr. aCrl Lieberman MD Other Provider Active Start: December 27, 2024 End: December 30, 2024 Dr. Ran Perea MD Other Provider Active St art: December 27, 2024 End: December 30, 2024 Dr. Gregory Hernandez DO Other Provider Active Start: December 27, 2024 End: December 30, 2024 Dr. Mohit Myers MD Other Provider Active Star t: December 27, 2024 End: December 30, 2024 Dr. Patria Crowe MD Other Provider Active Sta rt: December 27, 2024 End: December 30, 2024 Dr. Alexi Olivas DO Attending Provider Active Start: December 27, 2024 End: December 30, 2024 Team Status: Active Member Role/Relationship Status Dates Dr. Valeriano Beasley MD Primary Care Provider Active Start: December 27, 2024 Dr. Marino Holguin MD Emergency Provider Active Sta rt: December 27, 2024 Dr. Flakita Florentino DO Attending Provider Active S tart: December 27, 2024 Team Status: Active Member Role/Relationship Status Dates Dr. Valeriano Beasley MD Primary Care Provider Active Start: December 28, 2024 Dr. Marino Holguin MD Emergency Provider Active Sta rt: December 28, 2024 Dr. Flakita Florentino DO Admit Provider Active Start : December 28, 2024 Dr. Flakita Florentino DO Other Provider Active Start : December 28, 2024 Dr. Tony Shultz MD Other Provider Active Start: December 28, 2024 Dr. Ej Murguia MD Other Provider Active Start: December 28, 2024 Dr. Ricci Ballesteros MD Other Provider Active Star t: December 28, 2024 Dr. Homer Guzman DO Other Provider Active Start : December 28, 2024 Dr. Tessa Ty MD Other Provider Active Sta rt: December 28, 2024 Dr. Joni Garsia MD Other Provider Active St art: December 28, 2024 Dr. Viktor Francis MD Other Provider Active S tart: December 28, 2024 Dr. Belia Villanueva MD Other Provider Active Start: December 28, 2024 Dr. Spike Floyd MD Other Provider Active Start : December 28, 2024 Dr. Eric Dockery MD Other Provider Active Start: December 28, 2024 Dr. Jim Marin MD Other Provider Active Start : December 28, 2024 Dr. Isabel Hagen MD Other Provider Active Star t: December 28, 2024 Dr. Jaquelin Singh MD Other Provider Active Sta rt: December 28, 2024 Dr. Nelda Conde MD Other Provider Active Sta rt: December 28, 2024 Dr. Kasi Pina MD Other Provider Active Star t: December 28, 2024 Dr. Juancarlos Rebollar MD Other Provider Active St art: December 28, 2024 Dr. Drew Gibbons MD Other Provider Active Star t: December 28, 2024 Dr. Kenan Crawley DO Other Provider Active St art: December 28, 2024 Dr. Carl Lieberman MD Other Provider Active Start: December 28, 2024 Dr. Ran Perea MD Other Provider Active St art: December 28, 2024 Dr. Gregory Hernandez DO Other Provider Active Start: December 28, 2024 Dr. Mohit Myers MD Other Provider Active Star t: December 28, 2024 Dr. Patria Crowe MD Other Provider Active Sta rt: December 28, 2024 Dr. Alexi Olivas DO Attending Provider Active Start: December 28, 2024 Dr. Alexi Olivas DO Other Provider Active Star t: December 28, 2024 Team Status: Active Member Role/Relationship Status Dates Dr. Valeriano Beasley MD Primary Care Provider Active Start: December 29, 2024 Dr. Marino Holguin MD Emergency Provider Active Sta rt: December 29, 2024 Dr. Flakita Florentino DO Admit Provider Active Start : December 29, 2024 Dr. Flakita Florentino DO Other Provider Active Start : December 29, 2024 Dr. Tony Shultz MD Other Provider Active Start: December 29, 2024 Dr. Ej Murguia MD Other Provider Active Start: December 29, 2024 Dr. Ricci Ballesteros MD Other Provider Active Star t: December 29, 2024 Dr. Homer Guzman DO Other Provider Active Start : December 29, 2024 Dr. Tessa Ty MD Other Provider Active Sta rt: December 29, 2024 Dr. Joni Garsia MD Other Provider Active St art: December 29, 2024 Dr. Viktor Francis MD Other Provider Active S tart: December 29, 2024 Dr. Belia Villanueva MD Other Provider Active Start: December 29, 2024 Dr. Spike Floyd MD Other Provider Active Start : December 29, 2024 Dr. Eric Dockery MD Other Provider Active Start: December 29, 2024 Dr. Jim Marin MD Other Provider Active Start : December 29, 2024 Dr. Isabel Hagen MD Other Provider Active Star t: December 29, 2024 Dr. Jaquelin Singh MD Other Provider Active Sta rt: December 29, 2024 Dr. Nelda Conde MD Other Provider Active Sta rt: December 29, 2024 Dr. Kasi Pina MD Other Provider Active Star t: December 29, 2024 Dr. Juancarlos Rebollar MD Other Provider Active St art: December 29, 2024 Dr. Drew Gibbons MD Other Provider Active Star t: December 29, 2024 Dr. Kenan Crawley DO Other Provider Active St art: December 29, 2024 Dr. Carl Lieberman MD Other Provider Active Start: December 29, 2024 Dr. Ran Perea MD Other Provider Active St art: December 29, 2024 Dr. Gregory Hernandez DO Other Provider Active Start: December 29, 2024 Dr. Mohit Myers MD Other Provider Active Star t: December 29, 2024 Dr. Patria Crowe MD Other Provider Active Sta rt: December 29, 2024 Dr. Alexi Olivas DO Attending Provider Active Start: December 29, 2024 Dr. Alexi Olivas DO Other Provider Active Star t: December 29, 2024 Team Status: Active Member Role/Relationship Status Dates Dr. Valeriano Beasley MD Primary Care Provider Active Start: December 30, 2024 Dr. Marino Holguin MD Emergency Provider Active Sta rt: December 30, 2024 Dr. Flakita Florentino DO Admit Provider Active Start : December 30, 2024 Dr. Flakita Florentino DO Other Provider Active Start : December 30, 2024 Dr. Tony Shultz MD Other Provider Active Start: December 30, 2024 Dr. Ej Murguia MD Other Provider Active Start: December 30, 2024 Dr. Ricci Ballesteros MD Other Provider Active Star t: December 30, 2024 Dr. Homer Guzman DO Attending Provider Active S tart: December 30, 2024 Dr. Homer Guzman DO Other Provider Active Start : December 30, 2024 Dr. Tessa Ty MD Other Provider Active Sta rt: December 30, 2024 Dr. Joni Garsia MD Other Provider Active St art: December 30, 2024 Dr. Viktor Francis MD Other Provider Active S tart: December 30, 2024 Dr. Belia Villanueva MD Other Provider Active Start: December 30, 2024 Dr. Spike Floyd MD Other Provider Active Start : December 30, 2024 Dr. Eric Dockery MD Other Provider Active Start: December 30, 2024 Dr. Jim Marin MD Other Provider Active Start : December 30, 2024 Dr. Isabel Hagen MD Other Provider Active Star t: December 30, 2024 Dr. Jaquelin Singh MD Other Provider Active Sta rt: December 30, 2024 Dr. Nelda Conde MD Other Provider Active Sta rt: December 30, 2024 Dr. Kasi Pina MD Other Provider Active Star t: December 30, 2024 Dr. Juancarlos Rebollar MD Other Provider Active St art: December 30, 2024 Dr. Drew Gibbons MD Other Provider Active Star t: December 30, 2024 Dr. Kenan Crawley DO Other Provider Active St art: December 30, 2024 Dr. Carl Lieberman MD Other Provider Active Start: December 30, 2024 Dr. Ran Perea MD Other Provider Active St art: December 30, 2024 Dr. Gregory Hernandez DO Other Provider Active Start: December 30, 2024 Dr. Mohit Myers MD Other Provider Active Star t: December 30, 2024 Dr. Patria Crowe MD Other Provider Active Sta rt: December 30, 2024 Dr. Alexi Olivas DO Referring Provider Active Start: December 30, 2024 Dr. Alexi Olivas DO Other Provider Active Star t: December 30, 2024 Team Status: Active Member Role/Relationship Status Dates Dr. Valeriano Beasley MD Primary Care Provider Active Start: December 30, 2024 Dr. Marino Holguin MD Emergency Provider Active Sta rt: December 30, 2024 Dr. Flakita Florentino DO Admit Provider Active Start : December 30, 2024 Dr. Flakita Florentino DO Other Provider Active Start : December 30, 2024 Dr. Tony Shultz MD Other Provider Active Start: December 30, 2024 Dr. jE Murguia MD Other Provider Active Start: December 30, 2024 Dr. Ricci Ballesteros MD Other Provider Active Star t: December 30, 2024 Dr. Homer Guzman DO Other Provider Active Start : December 30, 2024 Dr. Tessa Ty MD Other Provider Active Sta rt: December 30, 2024 Dr. Joni Garsia MD Other Provider Active St art: December 30, 2024 Dr. Viktor Francis MD Other Provider Active S tart: December 30, 2024 Dr. Belia Villanueva MD Other Provider Active Start: December 30, 2024 Dr. Spike Floyd MD Other Provider Active Start : December 30, 2024 Dr. Eric Dockery MD Other Provider Active Start: December 30, 2024 Dr. Jim Marin MD Other Provider Active Start : December 30, 2024 Dr. Isabel Hagen MD Other Provider Active Star t: December 30, 2024 Dr. Jaquelin Singh MD Other Provider Active Sta rt: December 30, 2024 Dr. Nelda Conde MD Other Provider Active Sta rt: December 30, 2024 Dr. Kasi Pina MD Other Provider Active Star t: December 30, 2024 Dr. Juancarlos Rebollar MD Other Provider Active St art: December 30, 2024 Dr. Drew Gibbons MD Other Provider Active Star t: December 30, 2024 Dr. Kenan Crawley DO Other Provider Active St art: December 30, 2024 Dr. Carl Lieberman MD Other Provider Active Start: December 30, 2024 Dr. Ran Perea MD Other Provider Active St art: December 30, 2024 Dr. Gregory Hernandez DO Other Provider Active Start: December 30, 2024 Dr. Mohit Myers MD Other Provider Active Star t: December 30, 2024 Dr. Patria Crowe MD Other Provider Active Sta rt: December 30, 2024 Dr. Alexi Olivas DO Attending Provider Active Start: December 30, 2024 Dr. Alexi Olivas DO Other Provider Active Star t: December 30, 2024 Team Status: Active Member Role/Relationship Status Dates Dr. Valeriano Beasley MD Primary Care Provider Active Start: January 23, 2025 Dr. Jae Mcclure MD Emergency Provider Active S tart: January 23, 2025 Dr. Tessa Hampton DO Admit Provider Active Start: January 23, 2025 Dr. Tessa Hampton DO Attending Provider Active Start: January 23, 2025 Source Comments (unrecognize d section and content) In the event this informatio n is protected by the Federal Confidentiality of Alcohol and Drug Abuse Patient Records regulations: The Federal rules restrict any use of the information to criminally investigate or prosecute any alcohol or drug abuse patient.[facility] the event this information is protected by the Federal Confidentiality of Alcohol and Drug Abuse Patient Records regulations: The Federal rules restrict any use of the information to criminally investigate or prosecute any alcohol or drug abuse patient.[facility] the event this information is protected by the Federal Confidentiality of Alcohol and Drug Abuse Patient Records regulations: The Federal rules restrict any use of the information to criminally investigate or prosecute any alcohol or drug abuse patient.[facility] the event this information is protected by the Federal Confidentiality of Alcohol and Drug Abuse Patient Records regulations: The Federal rules restrict any use of the information to criminally investigate or prosecute any alcohol or drug abuse patient.[facility] the event this information is protected by the Federal Confidentiality of Alcohol and Drug Abuse Patient Records regulations: The Federal rules restrict any use of the information to criminally investigate or prosecute any alcohol or drug abuse patient.[facility] the event this information is protected by the Federal Confidentiality of Alcohol and Drug Abuse Patient Records regulations: The Federal rules restrict any use of the information to criminally investigate or prosecute any alcohol or drug abuse patient.[facility] the event this information is protected by the Federal Confidentiality of Alcohol and Drug Abuse Patient Records regulations: The Federal rules restrict any use of the information to criminally investigate or prosecute any alcohol or drug abuse patient.[facility] the event this information is protected by the Federal Confidentiality of Alcohol and Drug Abuse Patient Records regulations: The Federal rules restrict any use of the information to criminally investigate or prosecute any alcohol or drug abuse patient.[facility] the event this information is protected by the Federal Confidentiality of Alcohol and Drug Abuse Patient Records regulations: The Federal rules restrict any use of the information to criminally investigate or prosecute any alcohol or drug abuse patient.[facility] Hospital[facility] the event this information is protected by the Federal Confidentiality of Alcohol and Drug Abuse Patient Records regulations: The Federal rules restrict any use of the information to criminally investigate or prosecute any alcohol or drug abuse patient.[facility] Hospital[facility] the event this information is protected by the Federal Confidentiality of Alcohol and Drug Abuse Patient Records regulations: The Federal rules restrict any use of the information to criminally investigate or prosecute any alcohol or drug abuse patient.[facility] HospitalIn the event this information is protected by the Federal Confidentiality of Alcohol and Drug Abuse Patient Records regulations: The Federal rules restrict any use of the information to criminally investigate or prosecute any alcohol or drug abuse patient.[facility] HospitalIn the event this information is protected by the Federal Confidentiality of Alcohol and Drug Abuse Patient Records regulations: The Federal rules restrict any use of the information to criminally investigate or prosecute any alcohol or drug abuse patient.[facility] HospitalIn the event this information is protected by the Federal Confidentiality of Alcohol and Drug Abuse Patient Records regulations: The Federal rules restrict any use of the information to criminally investigate or prosecute any alcohol or drug abuse patient.[facility] HospitalIn the event this information is protected by the Federal Confidentiality of Alcohol and Drug Abuse Patient Records regulations: The Federal rules restrict any use of the information to criminally investigate or prosecute any alcohol or drug abuse patient.[facility] HospitalIn the event this information is protected by the Federal Confidentiality of Alcohol and Drug Abuse Patient Records regulations: The Federal rules restrict any use of the information to criminally investigate or prosecute any alcohol or drug abuse patient.[facility] HospitalIn the event this information is protected by the Federal Confidentiality of Alcohol and Drug Abuse Patient Records regulations: The Federal rules restrict any use of the information to criminally investigate or prosecute any alcohol or drug abuse patient.[facility] HospitalIn the event this information is protected by the Federal Confidentiality of Alcohol and Drug Abuse Patient Records regulations: The Federal rules restrict any use of the information to criminally investigate or prosecute any alcohol or drug abuse patient.[facility] HospitalIn the event this information is protected by the Federal Confidentiality of Alcohol and Drug Abuse Patient Records regulations: The Federal rules restrict any use of the information to criminally investigate or prosecute any alcohol or drug abuse patient.[facility] HospitalIn the event this information is protected by the Federal Confidentiality of Alcohol and Drug Abuse Patient Records regulations: The Federal rules restrict any use of the information to criminally investigate or prosecute any alcohol or drug abuse patient.[facility] HospitalIn the event this information is protected by the Federal Confidentiality of Alcohol and Drug Abuse Patient Records regulations: The Federal rules restrict any use of the information to criminally investigate or prosecute any alcohol or drug abuse patient.[facility] HospitalIn the event this information is protected by the Federal Confidentiality of Alcohol and Drug Abuse Patient Records regulations: The Federal rules restrict any use of the information to criminally investigate or prosecute any alcohol or drug abuse patient.[facility] HospitalIn the event this information is protected by the Federal Confidentiality of Alcohol and Drug Abuse Patient Records regulations: The Federal rules restrict any use of the information to criminally investigate or prosecute any alcohol or drug abuse patient.[facility] HospitalIn the event this information is protected by the Federal Confidentiality of Alcohol and Drug Abuse Patient Records regulations: The Federal rules restrict any use of the information to criminally investigate or prosecute any alcohol or drug abuse patient.[facility] HospitalIn the event this information is protected by the Federal Confidentiality of Alcohol and Drug Abuse Patient Records regulations: The Federal rules restrict any use of the information to criminally investigate or prosecute any alcohol or drug abuse patient.[facility] HospitalIn the event this information is protected by the Federal Confidentiality of Alcohol and Drug Abuse Patient Records regulations: The Federal rules restrict any use of the information to criminally investigate or prosecute any alcohol or drug abuse patient.[facility] HospitalIn the event this information is protected by the Federal Confidentiality of Alcohol and Drug Abuse Patient Records regulations: The Federal rules restrict any use of the information to criminally investigate or prosecute any alcohol or drug abuse patient.[facility] HospitalIn the event this information is protected by the Federal Confidentiality of Alcohol and Drug Abuse Patient Records regulations: The Federal rules restrict any use of the information to criminally investigate or prosecute any alcohol or drug abuse patient.[facility] HospitalIn the event this information is protected by the Federal Confidentiality of Alcohol and Drug Abuse Patient Records regulations: The Federal rules restrict any use of the information to criminally investigate or prosecute any alcohol or drug abuse patient.[facility] HospitalIn the event this information is protected by the Federal Confidentiality of Alcohol and Drug Abuse Patient Records regulations: The Federal rules restrict any use of the information to criminally investigate or prosecute any alcohol or drug abuse patient.[facility] HospitalIn the event this information is protected by the Federal Confidentiality of Alcohol and Drug Abuse Patient Records regulations: The Federal rules restrict any use of the information to criminally investigate or prosecute any alcohol or drug abuse patient.[facility] HospitalIn the event this information is protected by the Federal Confidentiality of Alcohol and Drug Abuse Patient Records regulations: The Federal rules restrict any use of the information to criminally investigate or prosecute any alcohol or drug abuse patient.[facility] HospitalIn the event this information is protected by the Federal Confidentiality of Alcohol and Drug Abuse Patient Records regulations: The Federal rules restrict any use of the information to criminally investigate or prosecute any alcohol or drug abuse patient.[facility] HospitalIn the event this information is protected by the Federal Confidentiality of Alcohol and Drug Abuse Patient Records regulations: The Federal rules restrict any use of the information to criminally investigate or prosecute any alcohol or drug abuse patient.[facility] HospitalIn the event this information is protected by the Federal Confidentiality of Alcohol and Drug Abuse Patient Records regulations: The Federal rules restrict any use of the information to criminally investigate or prosecute any alcohol or drug abuse patient.[facility] HospitalIn the event this information is protected by the Federal Confidentiality of Alcohol and Drug Abuse Patient Records regulations: The Federal rules restrict any use of the information to criminally investigate or prosecute any alcohol or drug abuse patient.[facility] HospitalIn the event this information is protected by the Federal Confidentiality of Alcohol and Drug Abuse Patient Records regulations: The Federal rules restrict any use of the information to criminally investigate or prosecute any alcohol or drug abuse patient.[facility] HospitalIn the event this information is protected by the Federal Confidentiality of Alcohol and Drug Abuse Patient Records regulations: The Federal rules restrict any use of the information to criminally investigate or prosecute any alcohol or drug abuse patient.[facility] HospitalIn the event this information is protected by the Federal Confidentiality of Alcohol and Drug Abuse Patient Records regulations: The Federal rules restrict any use of the information to criminally investigate or prosecute any alcohol or drug abuse patient.[facility] HospitalIn the event this information is protected by the Federal Confidentiality of Alcohol and Drug Abuse Patient Records regulations: The Federal rules restrict any use of the information to criminally investigate or prosecute any alcohol or drug abuse patient.[facility] HospitalIn the event this information is protected by the Federal Confidentiality of Alcohol and Drug Abuse Patient Records regulations: The Federal rules restrict any use of the information to criminally investigate or prosecute any alcohol or drug abuse patient.[facility] HospitalIn the event this information is protected by the Federal Confidentiality of Alcohol and Drug Abuse Patient Records regulations: The Federal rules restrict any use of the information to criminally investigate or prosecute any alcohol or drug abuse patient.[facility] HospitalIn the event this information is protected by the Federal Confidentiality of Alcohol and Drug Abuse Patient Records regulations: The Federal rules restrict any use of the information to criminally investigate or prosecute any alcohol or drug abuse patient.[facility] HospitalIn the event this information is protected by the Federal Confidentiality of Alcohol and Drug Abuse Patient Records regulations: The Federal rules restrict any use of the information to criminally investigate or prosecute any alcohol or drug abuse patient.[facility] HospitalIn the event this information is protected by the Federal Confidentiality of Alcohol and Drug Abuse Patient Records regulations: The Federal rules restrict any use of the information to criminally investigate or prosecute any alcohol or drug abuse patient.[facility] HospitalIn the event this information is protected by the Federal Confidentiality of Alcohol and Drug Abuse Patient Records regulations: The Federal rules restrict any use of the information to criminally investigate or prosecute any alcohol or drug abuse patient.[facility] HospitalIn the event this information is protected by the Federal Confidentiality of Alcohol and Drug Abuse Patient Records regulations: The Federal rules restrict any use of the information to criminally investigate or prosecute any alcohol or drug abuse patient.[facility] HospitalIn the event this information is protected by the Federal Confidentiality of Alcohol and Drug Abuse Patient Records regulations: The Federal rules restrict any use of the information to criminally investigate or prosecute any alcohol or drug abuse patient.[facility] HospitalIn the event this information is protected by the Federal Confidentiality of Alcohol and Drug Abuse Patient Records regulations: The Federal rules restrict any use of the information to criminally investigate or prosecute any alcohol or drug abuse patient.[facility] HospitalIn the event this information is protected by the Federal Confidentiality of Alcohol and Drug Abuse Patient Records regulations: The Federal rules restrict any use of the information to criminally investigate or prosecute any alcohol or drug abuse patient.[facility] HospitalIn the event this information is protected by the Federal Confidentiality of Alcohol and Drug Abuse Patient Records regulations: The Federal rules restrict any use of the information to criminally investigate or prosecute any alcohol or drug abuse patient.[facility] HospitalIn the event this information is protected by the Federal Confidentiality of Alcohol and Drug Abuse Patient Records regulations: The Federal rules restrict any use of the information to criminally investigate or prosecute any alcohol or drug abuse patient.[facility] HospitalIn the event this information is protected by the Federal Confidentiality of Alcohol and Drug Abuse Patient Records regulations: The Federal rules restrict any use of the information to criminally investigate or prosecute any alcohol or drug abuse patient.[facility] HospitalIn the event this information is protected by the Federal Confidentiality of Alcohol and Drug Abuse Patient Records regulations: The Federal rules restrict any use of the information to criminally investigate or prosecute any alcohol or drug abuse patient.[facility] HospitalIn the event this information is protected by the Federal Confidentiality of Alcohol and Drug Abuse Patient Records regulations: The Federal rules restrict any use of the information to criminally investigate or prosecute any alcohol or drug abuse patient.[facility] HospitalIn the event this information is protected by the Federal Confidentiality of Alcohol and Drug Abuse Patient Records regulations: The Federal rules restrict any use of the information to criminally investigate or prosecute any alcohol or drug abuse patient.[facility] HospitalIn the event this information is protected by the Federal Confidentiality of Alcohol and Drug Abuse Patient Records regulations: The Federal rules restrict any use of the information to criminally investigate or prosecute any alcohol or drug abuse patient.[facility] HospitalIn the event this information is protected by the Federal Confidentiality of Alcohol and Drug Abuse Patient Records regulations: The Federal rules restrict any use of the information to criminally investigate or prosecute any alcohol or drug abuse patient.[facility] HospitalIn the event this information is protected by the Federal Confidentiality of Alcohol and Drug Abuse Patient Records regulations: The Federal rules restrict any use of the information to criminally investigate or prosecute any alcohol or drug abuse patient.[facility] HospitalIn the event this information is protected by the Federal Confidentiality of Alcohol and Drug Abuse Patient Records regulations: The Federal rules restrict any use of the information to criminally investigate or prosecute any alcohol or drug abuse patient.[facility] HospitalIn the event this information is protected by the Federal Confidentiality of Alcohol and Drug Abuse Patient Records regulations: The Federal rules restrict any use of the information to criminally investigate or prosecute any alcohol or drug abuse patient.[facility] HospitalIn the event this information is protected by the Federal Confidentiality of Alcohol and Drug Abuse Patient Records regulations: The Federal rules restrict any use of the information to criminally investigate or prosecute any alcohol or drug abuse patient.[facility] HospitalIn the event this information is protected by the Federal Confidentiality of Alcohol and Drug Abuse Patient Records regulations: The Federal rules restrict any use of the information to criminally investigate or prosecute any alcohol or drug abuse patient.[facility] HospitalIn the event this information is protected by the Federal Confidentiality of Alcohol and Drug Abuse Patient Records regulations: The Federal rules restrict any use of the information to criminally investigate or prosecute any alcohol or drug abuse patient.[facility] HospitalIn the event this information is protected by the Federal Confidentiality of Alcohol and Drug Abuse Patient Records regulations: The Federal rules restrict any use of the information to criminally investigate or prosecute any alcohol or drug abuse patient.[facility] HospitalIn the event this information is protected by the Federal Confidentiality of Alcohol and Drug Abuse Patient Records regulations: The Federal rules restrict any use of the information to criminally investigate or prosecute any alcohol or drug abuse patient.[facility] HospitalIn the event this information is protected by the Federal Confidentiality of Alcohol and Drug Abuse Patient Records regulations: The Federal rules restrict any use of the information to criminally investigate or prosecute any alcohol or drug abuse patient.[facility] HospitalIn the event this information is protected by the Federal Confidentiality of Alcohol and Drug Abuse Patient Records regulations: The Federal rules restrict any use of the information to criminally investigate or prosecute any alcohol or drug abuse patient.[facility] HospitalIn the event this information is protected by the Federal Confidentiality of Alcohol and Drug Abuse Patient Records regulations: The Federal rules restrict any use of the information to criminally investigate or prosecute any alcohol or drug abuse patient.[facility] HospitalIn the event this information is protected by the Federal Confidentiality of Alcohol and Drug Abuse Patient Records regulations: The Federal rules restrict any use of the information to criminally investigate or prosecute any alcohol or drug abuse patient.[facility] HospitalIn the event this information is protected by the Federal Confidentiality of Alcohol and Drug Abuse Patient Records regulations: The Federal rules restrict any use of the information to criminally investigate or prosecute any alcohol or drug abuse patient.[facility] HospitalIn the event this information is protected by the Federal Confidentiality of Alcohol and Drug Abuse Patient Records regulations: The Federal rules restrict any use of the information to criminally investigate or prosecute any alcohol or drug abuse patient.[facility] HospitalIn the event this information is protected by the Federal Confidentiality of Alcohol and Drug Abuse Patient Records regulations: The Federal rules restrict any use of the information to criminally investigate or prosecute any alcohol or drug abuse patient.[facility] HospitalIn the event this information is protected by the Federal Confidentiality of Alcohol and Drug Abuse Patient Records regulations: The Federal rules restrict any use of the information to criminally investigate or prosecute any alcohol or drug abuse patient.[facility] HospitalIn the event this information is protected by the Federal Confidentiality of Alcohol and Drug Abuse Patient Records regulations: The Federal rules restrict any use of the information to criminally investigate or prosecute any alcohol or drug abuse patient.[facility] HospitalIn the event this information is protected by the Federal Confidentiality of Alcohol and Drug Abuse Patient Records regulations: The Federal rules restrict any use of the information to criminally investigate or prosecute any alcohol or drug abuse patient.[facility] HospitalIn the event this information is protected by the Federal Confidentiality of Alcohol and Drug Abuse Patient Records regulations: The Federal rules restrict any use of the information to criminally investigate or prosecute any alcohol or drug abuse patient.[facility] HospitalIn the event this information is protected by the Federal Confidentiality of Alcohol and Drug Abuse Patient Records regulations: The Federal rules restrict any use of the information to criminally investigate or prosecute any alcohol or drug abuse patient.[facility] HospitalIn the event this information is protected by the Federal Confidentiality of Alcohol and Drug Abuse Patient Records regulations: The Federal rules restrict any use of the information to criminally investigate or prosecute any alcohol or drug abuse patient.[facility] HospitalIn the event this information is protected by the Federal Confidentiality of Alcohol and Drug Abuse Patient Records regulations: The Federal rules restrict any use of the information to criminally investigate or prosecute any alcohol or drug abuse patient.[facility] HospitalIn the event this information is protected by the Federal Confidentiality of Alcohol and Drug Abuse Patient Records regulations: The Federal rules restrict any use of the information to criminally investigate or prosecute any alcohol or drug abuse patient.[facility] HospitalIn the event this information is protected by the Federal Confidentiality of Alcohol and Drug Abuse Patient Records regulations: The Federal rules restrict any use of the information to criminally investigate or prosecute any alcohol or drug abuse patient.[facility] HospitalIn the event this information is protected by the Federal Confidentiality of Alcohol and Drug Abuse Patient Records regulations: The Federal rules restrict any use of the information to criminally investigate or prosecute any alcohol or drug abuse patient.[facility] HospitalIn the event this information is protected by the Federal Confidentiality of Alcohol and Drug Abuse Patient Records regulations: The Federal rules restrict any use of the information to criminally investigate or prosecute any alcohol or drug abuse patient.[facility] HospitalIn the event this information is protected by the Federal Confidentiality of Alcohol and Drug Abuse Patient Records regulations: The Federal rules restrict any use of the information to criminally investigate or prosecute any alcohol or drug abuse patient.[facility] HospitalIn the event this information is protected by the Federal Confidentiality of Alcohol and Drug Abuse Patient Records regulations: The Federal rules restrict any use of the information to criminally investigate or prosecute any alcohol or drug abuse patient.[facility] HospitalIn the event this information is protected by the Federal Confidentiality of Alcohol and Drug Abuse Patient Records regulations: The Federal rules restrict any use of the information to criminally investigate or prosecute any alcohol or drug abuse patient.[facility] HospitalIn the event this information is protected by the Federal Confidentiality of Alcohol and Drug Abuse Patient Records regulations: The Federal rules restrict any use of the information to criminally investigate or prosecute any alcohol or drug abuse patient.[facility] HospitalIn the event this information is protected by the Federal Confidentiality of Alcohol and Drug Abuse Patient Records regulations: The Federal rules restrict any use of the information to criminally investigate or prosecute any alcohol or drug abuse patient.[facility] Reason for Visit (unrecogniz ed section and content) Reason Comments Appointment Reason Comments Insurance Authorization Reason Comments Orders Reason Comments Medicare Wellness Exam Reason Comments Consult Consult [facility] Reason Comments Results EGD results - [facility] [...] Date Comments Population Health Navigation Outreach 08/25/2023 [facility] AWV Reason Comments Radiology CT Specialty Diagnoses / Procedures Referred By Sarkis t Referred To Contact CT IMAGING Diagnoses Other specified disorders of kidney and ureter Kidney lesion Procedures CT KIDNEY WO/W IVCON CT ABDOMEN W & W/O CONTRAST Valeriano Beasley MD [address] [place] [address] [place] [address] Referral ID Status Reason Start Date Expiration Date V isits Requested Visits Authorized [id number] Closed Auto-Generate d Referral 08/21/2023 09/19/2024 1 1 Reason Comments Outside Orthopedics Reason Comments outside imaging Reason Comments Outside Cardiology labs Reason Comments [facility] Reason Onset Date Comments Refill Request 09/25/2023 Reason Comments Outside Echo US Reason Onset Date Comments Population Health Navigation Outreach 10/14/2023 [facility] Annual Wellness Visit Reason Comments Orders labs Reason Comments Ext / Nuclear Stress Test Reason Comments Patient Question Reason Comments New Patient New patient. Pt repo rted bilateral numbness, weakness hands, feet x2 yrs. Specialty Diagnoses / Procedures Referred By Contac t Referred To Contact Neurology Diagnoses Balance problems Procedures CONSULT TO NEUROLOGY OFFICE/OUTPATIENT [facility] 60 MINUTES Suzanna Dawson PA-C [address] [facility] [address] Referral ID Status Reason Start Date Expiration Date V isits Requested Visits Authorized [id number] Closed PCP Requested Referral 2023 10/18/2024 1 1 Reason Onset Date Comments Refill Request 01/08/2024 Reason Comments Outside Cardiology Specialty Diagnoses / Procedures Referred By Contac t Referred To Contact MR IMAGING Diagnoses Other symptoms and signs involving the nervous system Procedures MRA CAROTID WO IVCON MRA, NECK; W/O CONTRAST Patria Khanna Jr., MD [facility] [place] [address] [place] [address] Referral ID Status Reason Start Date Expiration Date V isits Requested Visits Authorized [id number] Closed Auto-Generate d Referral 01/01/2024 01/30/2025 1 1 Specialty Diagnoses / Procedures Referred By Contac t Referred To Contact MR IMAGING Diagnoses Other symptoms and signs involving the nervous system Procedures MRA BRAIN WO IVCON MRA, HEAD W/O CONTRAST Patria Khanna Jr., MD [facility] [facility] [address] [place] [address] [place] [address] Referral ID Status Reason Start Date Expiration Date V isits Requested Visits Authorized [id number] Closed Auto-Generate d Referral 01/01/2024 01/30/2025 1 1 Reason Comments Results Specialty Diagnoses / Procedures Referred By Contac t Referred To Contact CT IMAGING Diagnoses Occlusion and stenosis of unspecified carotid artery Procedures CTA NECK W IVCON CT ANGIOGRAPHY NECK W/CONTRAST/NONCONTRAST Patria Khanna Jr., MD [facility] [address] [place] [address] [place] [address] Referral ID Status Reason Start Date Expiration Date V isits Requested Visits Authorized [id number] Closed Auto-Generate d Referral 02/07/2024 03/08/2025 1 1 Reason Comments ER F/U Reason Comments Consult Outside Cardiology Reason Comments Release Of Medical Records Reason Comments Outside Urology Reason Comments Recheck Blood pressure Reason Comments Outside Gastro Reason Comments ER Discharge Summary Reason Onset Date Comments Refill Request 07/19/2024 Reason Comments ED Follow-up Reason Comments Facial Swelling Specialty Diagnoses / Procedures Referred By Contac t Referred To Contact Allergy Diagnoses Angioedema, subsequent encounter Procedures CONSULT TO ALLERGY/IMMUNOLOGY OFFICE/OUTPATIENT [facility] 60 [place] [address] [place] [address] Referral ID Status Reason Start Date Expiration Date V isits Requested Visits Authorized [id number] Closed PCP Requested Referral 07/31/2024 07/31/2025 1 1 Reason Comments Established Patient Balance problems, pt states balance is ok some days, neuropathy worsening Reason Comments Abnormal Lab Specialty Diagnoses / Procedures Referred By Contac t Referred To Contact Rheumatology Diagnoses Positive GALLO (antinuclear antibody) Procedures CONSULT TO RHEUM/IMMUN DISEASE OFFICE/OUTPATIENT [facility] 60 MINUTES Patria Khanna Jr., MD [address] [place] [address] Phone: tel: fax: Referral ID Status Reason Start Date Expiration Date V isits Requested Visits Authorized [id number] Closed PCP Requested Referral 08/30/2024 08/30/2025 1 1 Reason Comments Outside Imaging Reason Comments Outside [id number] Ordered Reason Comments Results Outside labs Reason Comments Outside Imaging Urology Reason Comments New Patient Reason Comments Established Patient Reason Comments 6 Month Exam Reason Comments Radiology US Specialty Diagnoses / Procedures Referred By Contac t Referred To Contact US IMAGING Diagnoses Screening for abdominal aortic aneurysm Procedures US SCREENING FOR AAA US ABDOMINAL AORTA REAL TIME SCREEN STUDY AAA Ni [place], [employer] [address] [phone] Phone: tel: fax: [place] [address] Referral ID Status Reason Start Date Expiration Date V isits Requested Visits Authorized [id number] Closed Auto-Generate d Referral 11/01/2024 12/01/2025 1 1 Reason Comments external document Lab results Reason Comments Follow Up Neuropathy follow up , patient states his episodes of Neuropathy are getting more frequent, about every week and of longer duration, will now last several days instead of just a few hours Reason Onset Date Comments Results 11/07/2024 Reason Comments Rectal Bleeding Care Team (unrecognized sect ion and content) Care Team Personnel Name: VALERIANO BEASLEY MD Member Role: Primary Care Physician Address: Address: [address] [place] [address]- Care Team Related Persons Name: KALINPRICEJOSE AU Goals (unrecognized section and content) Goals may be documented in a n alternate section (unrecognized sect ion and content) No Status Records FoundNo Status Records FoundNo Status Records FoundNo Status Records Found INFORMATION SOURCE (unrecogn ized section and content) DATE CREATED AUTHOR 01/03/2023 [facility] ([place]) DATE CREATED AUTHOR AUTHOR'S ORGANIZ ATION 08/11/2023 [facility] DATE CREATED AUTHOR AUTHOR'S ORGANIZ ATION 01/03/2025 [facility] DATE CREATED AUTHOR AUTHOR'S ORGANIZ ATION 01/13/2025 [facility] FOR RECORDS PERTAINING TO PATIENTS WHO ARE [...] BE BASED ON THE PRIMARY CLINICAL RECORDS. [employer] provides no warranty or guarantee of the accuracy or completeness of information in this document.
--- OUTSIDE RECORDS SUMMARY | 2025-01-23 23:41 | XMS RPT_ITS | CCD ---
Author Organization [facility] Care Team Providers Care Field Return Repairer Name Role Phone VALERIANO BEALSEY MD Primary Care Physician [phone] Valeriano Beasley MD Primary Care Provider Valeriano Beasley MD Primary Care Provider Valeriano Beasley MD Primary Care Provider Dr. Valeriano Beasley Primary Care Provider Dr. Marino Holguin Emergency Provider [phone] Jael Ramos Admit Provider Dr. [...] Unavailable Dr. Valeriano Beasley Referring Provider Edilberto GOLD MINER, GOLD MINER-C Xochilt Estrada Attending Provider YUSRA LUNA, TESSA [...] Provider Dr. Lukas Cuevas Attending Provider Price GOLD MINER, GOLD MINER-C Estefany Attending Provider Dr. Valeriano Beasley Primary Care Provider Dr. Valeriano Beasley Referring Provider Dr. José Miguel Valverde Attending Provider Dr. Lukas Cuevas Attending Provider Price GRANDE, FAUSTO Allison Attending Provider Dr. Alexi Jaime Attending Provider Gale LUNA, Valeriano Stanford Primary Care Provider Suzan DENTIST ATTENDANT.LIGHT RAIL SIG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, Ni Unavailable Samir JOHNSON, Suzanna Unavailable Carrie Magana MD, Patria Solis Unavailable Gale LUNA, Dr. Bal Primary Care Provider Dr. Stan Gilbert DO Attending Provider Vladimir FLORES, Dr. Pierce Emergency Provider Francis LUNA, Dr. Jalloh Attending Provider Francis LUNA, Dr. Jalloh Referring Provider Gale LUNA, Dr. Bal Referring Provider Anderson LUNA, Dr. Geovani Martines Attending Provider Anderson LUNA, Dr. Geovani Martines Referring Provider Estefayn Cool Attending Provider Suzan DENTIST ATTENDANT.LIGHT RAIL SIG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, Ni Unavailable Samir JOHNSON, Suzanna Unavailable Gale LUNA, Dr. Bal Primary [...] Melony LUNA, Dr. Tessa Martinez Other Provider Sun LUNA, Dr. Quinones Other Provider Penny LUNA, Dr. Hoang Other Provider Kay LUNA, Dr. Celaya Other Provider [phone] Everett LUNA, Dr. Lala Other Provider [phone] Sarkis LUNA, Dr. Reyes Other Provider [phone] Tomas LUNA, Dr. Fernandez Other Provider Xiao LUNA, Dr. Hall Other Provider [phone] Samantha LUNA, Dr. Hammer Other Provider Unavailabl courtney Conde MD, Dr. Lutz Other Provider [phone] Yovani LUNA, Dr. Villaseñor Other Provider Smooth LUNA, Dr. Bauer Other Provider [phone] Edwige LUNA, Dr. Russell Other Provider Denisa FLORES, Dr. Grayson Other Provider Luisana LUNA, Dr. Henry Other Provider [phone] Eliazar LUNA, Dr. Tong Other Provider [phone] Gregory Hernandez DO Other Provider Louis [...] Unavailable MASCI, STEPHANIE A Referring Unavailable Knoble DENTIST ATTENDANT.LIGHT RAIL SIG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, Ni Unavailable Suzanna Dawson PA-C Unavailable [phone] Flakita Florentino Attending Unavailable Gale, Valeriano Primary Care Unavailable Gale, Valeriano Primary Care Unavailable Geovani Barron Attending Unavailable Geovani Barron [facility] Geovani Barron Referring Unavailable Geovani Barron Attending Unavailable Tony Shultz Consulting Unavailable [facility] Unavailable Alexi Olivas Attending Unavailable [...] Blanco Attending Unavailable Francis, Shubham Referring Unavailable [facility] Primary [facility] Unavailable Shubham Blanco Attending Unavailable Francis, Shubham Referring Unavailable [facility] Primary Care Unavailable [facility] Primary Care Unavailable Suzanna Goodman Attending Unavailable Suzanna Goodman Referring Unavailable [facility] Primary Care Unavailable Geovani Barron Referring Unavailable Geovani Barron Attending Unavailable [facility] Primary Care Unavailable Alexi Olivas Attending Unavailable [...] Kenan Consulting Unavailable Lieberman, Sujoy Consulting Unavailable Spangle, Soleyah Consulting Unavailable Ferbossman, Gregory Consulting Unavailable [...] Care Unavailable Gale, Valeriano Referring Unavailable Estefany Thrasehr Attending Unavailable Gale, Valeriano Primary Care Unavailable Gale, Valeriano Referring Unavailable Estefany Thrasher Attending Unavailable Gale, Valeriano Referring Unavailable Gale, Valeriano Primary Care Unavailable Shubham Blanco Attending Unavailable Gale, Valeriano Primary Care Unavailable Gale, Valeriano Referring Unavailable Estefany Thrasher Attending Unavailable Gale LUAN, Dr. Bal Primary Care Provider Anderson LUNA, Dr. Geovani Martines Attending Provider [phone] Anderson LUNA, Dr. Geovani Martines Referring Provider Gale LUNA, Dr. Bal Referring Provider Dr. [...] hydroCHLOROthiazide; Translations: [hydrochlorothiazide] Drug Allergy 008 Unknown [facility] Work Phone: Comment on above: rash (20 sources) environmental [Other] Propensity to adverse reactions 008 Unknown [facility] Work Phone: (20 sources) Angiotensin II receptor antagonist; Translations: [ARB-ANGIOTENSIN RECEPTOR ANTAGONIST] Drug Intolerance Other: See Comments [facility] (20 sources) Sertraline; Translations: [SERTRALINE] Drug Allergy Other: See Comments [facility] (7 sources) Losartan Drug Allergy 024 Angioedema [facility] (1 source) hydroCHLOROthiazide Drug Allergy [facility] (1 source) Losartan Drug Allergy [facility] Medications Current Medications Medication Drug Class(es) [...] 1 tablet by alison th once daily amLODIPine (NORVASC) 5 mg [...] TABLET BY ALISON TH ONCE DAILY. FOR CHOLESTEROL. Blood Pressure [...] 5,000 Units by mouth once daily. Co P01-Dmrr Oil-[place] 3-E (4 sources) Start: 03-25-2022 Co V32-Mmpf Oil-[place] 3-E Active CAP PO March 24, 2022 11:00pm Start: 03-25-2022 Co U27-Gqkv Oi l-[place] 3-E Active CAP PO March 25, 2022 [...] on above: Take 1 capsule by mo [facility] daily at bedtime. [id number] 0.3 ml EPINEPHrine 1 mg/ml auto-injector (5 [...] Comment on above: Take 1 tablet by [facility] once daily. fexofenadine hydrochloride 180 mg [...] 1 tablet by alison th once daily. Pqmgnvyaqlyd-Xii-Ey on-Fa-Vit K (Adults Multivitamin) 18 mg iron-400 mcg-25 mcg Tablet (4 sources) Start: 03-25-2022 take 1 tablet by mouth once Eeabmzdbvmlk-Koy-Uol n-Fa-Vit K (Adults Multivitamin) 18 mg iron-400 mcg-25 mcg Tablet Active TABLET PO March 24, 2022 11:00pm Start: 03-25-2022 take 1 tablet by alison th once Hzfxamhtxfnw-Qyc-Whyu-Fa-Vit K (Adults Multivitamin) 18 mg iron-400 mcg-25 [...] pain, # 100 tab(s), 2 Refill(s), Pharmacy: [facility]/pharmacy #[id number], 177.8, cm, 11/29/21 16:55:00 EDT, Height Start Date: 12/01/21 Status: Ordered Comment on above: Dissolve 1 tablet un miesha the tongue every 5 minutes as needed for chest pain. [place] 1-Uvn-Ubi-Fish Oil (2 sources) Start: 09-01-2023 [place] 9-Nvy-Qvv-Fish Oil Active CAP PO September 01, 2023 1:00am Start: 09-01-2023 [place] 3-Dha-Ep a-Fish Oil Active CAP PO September 01, 2023 12:00am [place] 6-Dje-Ldw-Fish Oil 100-400-1,000 mg capsule (7 sources) Start: 09-01-2023 take 100-400 capsules by mouth once daily as needed [place] 2-Ini-Unh-Fish Oil 100-400-1,000 mg capsule Active 1 NMA PO DAILY as needed for supplement September 01, 2023 1:00am Start: 09-01-2023 [place] 3-Dha-Ep a-Fish Oil 100-400-1,000 mg capsule Active [...] BID, # 60 tab(s), 5 Refill(s), Pharmacy: [facility]/pharmacy #[id number], 177.8, cm, 01/27/22 6:11:00 EDT, Height, [...] Ordered Start: 09-27-2021 take 2 tablets by [facility] once daily atenolol (TENORMIN) 50 mg tablet Take 2 tablets by mouth once daily. 180 tablet 1 09/27/2021 Active Start: 05-30-2013 take 1 mg by mouth once daily Atenolol Active MG PO DAILY May 30, 2013 12:00am Comment on above: Take 2 tablets by [facility] once daily. [facility] BD ASSURE BPM-AUTO ARM CUFF [...] qDay, # 30 tab(s), 3 Refill(s), Pharmacy: [facility]/pharmacy #[id number], 175.3, cm, 12/28/21 11:24:00 EDT, Height [...] Start: 03-25-2022 take 1 capsule by mo [facility] at bedtime Diphenhydramine Hcl (Benadryl) 25 mg [...] q12h, # 60 tab(s), 6 Refill(s), Pharmacy: [facility]/pharmacy #[id number], 177.8, cm, 11/29/21 16:55:00 EDT, Height [...] Coronary atherosclerosis; Translations: [Atherosclerotic heart disease of [place] coronary artery without angina pectoris] Onset: 2 [...] status 11-01-2024 Unclassified (2 sources) Please call [phone] to schedule the follow up appt. Unclassified [...] (20 sources) Patient encounter status; Translations: [Other terminologist (current) drug therapy] Onset: 03-15-2021 03-15-2021 Episodic Other aftercare (1 source) Other terminologist (current) drug therapy; Translations: [Medication management] Onset: [...] Auto (Unsp spec) [#/Vol] 0.86 10*3/uL 0.83-4.51 [facility] Absolute neutrophil countOrd ered By: ED PROVIDER on 01-23-2025 Neutrophils (Bld) [#/Vol] 3.1 10*3/uL 2.0-7.7 [facility] Anion gap in Serum or Plasma Ordered By: ED PROVIDER on 01-23-2025 Anion gap [Moles/Vol] 13 mmol/L 5-15 [facility] Automated lymphocyte count a s percentage of total leukocytesOrdered By: ED PROVIDER on 01-23-2025 Lymphocytes/100 WBC Auto (Unsp spec) 16.0 % Low 19-41 [facility] BUN/creatinine ratioOrdered By: ED PROVIDER on 01-23-2025 Urea nitrogen/Creatinine [Mass ratio] 15.1 mg/mg 10-20 [facility] Basophil percentageOrdered B y: ED PROVIDER on 01-23-2025 Basophils/100 WBC (Bld) 0.7 % 0-1 [facility] Bilirubin Test strip Ql (U)O rdered By: Jae Mcclure on 01-23-2025 Bilirubin Ql (U) Negative Negative [facility] Bilirubin, totalOrdered By: ED PROVIDER on 01-23-2025 Bilirubin [Mass/Vol] 0.74 mg/dL 0.00-1.30 [facility] Carbon dioxide, total [Moles /volume] in Central venous bloodOrdered By: ED PROVIDER on 01-23-2025 CO2 [Moles/Vol] 19.9 mmol/L Low 21.0-32.0 [facility] Chloride assayOrdered By: ED PROVIDER on 01-23-2025 Chloride [Moles/Vol] 107 mmol/L 98-108 [facility] Eosinophil percentageOrdered By: ED PROVIDER on 01-23-2025 Eosinophils/100 WBC (Bld) 10.6 % High 0-5 [facility] Erythrocyte distribution wid th ratioOrdered By: ED PROVIDER on 01-23-2025 Erythrocyte distribution width (RBC) [Ratio] 13.8 % 11.6-14.6 [facility] Erythrocyte distribution wid th standard deviationOrdered By: ED PROVIDER on 01-23-2025 Erythrocyte distribution width (RBC) [Ratio] 53.4 fl High 35.1-43.9 [facility] Glomerular filtration rate ( GFR) estimation/1.73 sq m using serum, plasma, or whole bOrdered By: ED PROVIDER on 01-23-2025 GFR/1.73 sq M.predicted among non-blacks MDRD (S/P/Bld) [Vol rate/Area] 92 mL/min/{1.73_m2} >60 [facility] Comment on above: mL/min/1.73m2 CKD-EP I Creatinine Equation (2020) Hematocrit Auto (Bld) [Volum e fraction]Ordered By: ED PROVIDER on 01-23-2025 Hematocrit (Bld) [Volume fraction] 31.0 % Low 40-54 [facility] Hemoglobin measurementOrdere d By: ED PROVIDER on 01-23-2025 Hemoglobin (Bld) [Mass/Vol] 10.5 g/dL Low 13.0-16.5 [facility] Immature granulocytes/100 WB C Auto (Bld)Ordered By: ED PROVIDER on 01-23-2025 Immature granulocytes/100 WBC (Bld) 0.700 % 0.0-0.9 [facility] Comment on above: IG% - Immature Granu locytes (promyelocytes, myelocytes and metamyelocytes) > 1% indicates that a LEFT SHIFT is Present. Ketones Test strip Ql (U)Ord ered By: Jae Mcclure on 01-23-2025 Ketones Ql (U) Negative Negative [facility] Laboratory - Chemistry and C hemistry - challengeOrdered By: ED PROVIDER on 01-23-2025 AST [Catalytic activity/Vol] 35 U/L <38 [facility] Lipase measurementOrdered By : ED PROVIDER on 01-23-2025 Lipase [Catalytic activity/Vol] 39 U/L 13-75 [facility] Comment on above: Please note:LIPASE r evised reference range effective 22. New Lipase methodology. Expected to produce lower values than the previous assay method. NEW Reference Range: 13 - 75 U/L MCV (mean corpuscular volume ) determinationOrdered By: ED PROVIDER on 01-23-2025 MCV (RBC) [Entitic vol] 106.2 fL High 80-94 [facility] Mean corpuscular hemoglobin (MCH) determinationOrdered By: ED PROVIDER on 01-23-2025 MCH (RBC) [Entitic mass] 36.0 pg High 27.0-32.0 [facility] Mean corpuscular hemoglobin concentration (MCHC) determinationOrdered By: ED PROVIDER on 01-23-2025 MCHC (RBC) [Mass/Vol] 33.9 g/dL 32-36 [facility] Mean platelet volume determi nationOrdered By: ED PROVIDER on 01-23-2025 Platelet mean volume (Bld) [Entitic vol] 9.5 fL 6.2-12.0 [facility] Microscopic analysis of urin e for red blood cells (RBC)Ordered By: Jae Mcclure on 01-23-2025 Microscopic analysis of urine for red blood cells (RBC) 0-5 SEEN /hpf 0-5 [facility] Monocyte percentageOrdered B y: ED PROVIDER on 01-23-2025 Monocytes/100 WBC (Bld) 13.7 % High 0-10 [facility] Mucus LM Ql (Urine sed)Order ed By: Jae Mcclure on 01-23-2025 Mucus Ql (Urine sed) 0 SEEN /hpf [facility] Neutrophil percentageOrdered By: ED PROVIDER on 01-23-2025 Neutrophils/100 WBC (Bld) 58.3 % 47-70 [facility] Nitrite Test strip Ql (U)Ord ered By: Jae Mcclure on 01-23-2025 Nitrite Ql (U) Negative Negative [facility] Nucleated red blood cell per centageOrdered By: ED PROVIDER on 01-23-2025 Nucleated RBC/100 WBC (Bld) [Ratio] 0 % 0-5 [facility] Platelet countOrdered By: ED PROVIDER on 01-23-2025 Platelets (Bld) [#/Vol] 167 10*3/uL 150-450 [facility] Potassium measurement (mass/ volume)Ordered By: ED PROVIDER on 01-23-2025 Potassium (Unsp spec) [Mass/Vol] 3.8 mmol/L 3.3-5.1 [facility] Protein Test strip Ql (U)Ord ered By: Jae Mcclure on 01-23-2025 Protein Ql (U) Negative Negative [facility] RBC Auto (Bld) [#/Vol]Ordere d By: ED PROVIDER on 01-23-2025 RBC (Bld) [#/Vol] 2.92 10*6/uL Low 4.6-6.2 [facility] Serum creatinine measurement (mass/volume)Ordered By: ED PROVIDER on 01-23-2025 Creatinine [Mass/Vol] 0.82 mg/dL 0.70-1.20 [facility] Serum globulin measurementOr dered By: ED PROVIDER on 01-23-2025 Globulin (S) [Mass/Vol] 2.9 g/dL 2.2-4.2 [facility] Serum glucose measurement (m ass/volume)Ordered By: ED PROVIDER on 01-23-2025 Glucose [Mass/Vol] 100 mg/dL High 70-99 [facility] Serum or plasma alanine guevara otransferase (ALT) measurementOrdered By: ED PROVIDER on 01-23-2025 ALT [Catalytic activity/Vol] 30 U/L <47 [facility] Serum or plasma albumin reid urement (mass/volume)Ordered By: ED PROVIDER on 01-23-2025 Albumin [Mass/Vol] 3.8 g/dL 3.4-4.8 [facility] Serum or plasma albumin/glob ulin mass ratioOrdered By: ED PROVIDER on 01-23-2025 Albumin/Globulin [Mass ratio] 1.3 {ratio} 0.9-2.4 [facility] Serum or plasma alkaline adelfo sphatase measurementOrdered By: ED PROVIDER on 01-23-2025 ALP [Catalytic activity/Vol] 103 U/L 40-129 [facility] Serum or plasma calcium reid urement (mass/volume)Ordered By: ED PROVIDER on 01-23-2025 Calcium [Mass/Vol] 9.0 mg/dL 7.6-11.0 [facility] Serum or plasma urea nitroge n measurement (mass/volume)Ordered By: ED PROVIDER on 01-23-2025 Urea nitrogen [Mass/Vol] 12 mg/dL 4-19 [facility] Sodium levelOrdered By: ED P CARLOSVIDER on 01-23-2025 Sodium [Moles/Vol] 140 mmol/L 133-145 [facility] Squamous epithelial cells de tection in urine sediment by light microscopyOrdered By: Jae Mcclure on 01-23-2025 Epithelial cells.squamous LM Ql (Urine sed) 0-5 SEEN /hpf 0-5 [facility] Total proteinOrdered By: ED PROVIDER on 01-23-2025 Protein [Mass/Vol] 6.6 g/dL 5.9-8.4 [facility] Urine clarityOrdered By: Jett Mcclure on 01-23-2025 Clarity (U) Clear Clear [facility] Urine color determinationOrd ered By: Jae Mcclure on 01-23-2025 Color (U) Straw Yellow [facility] Urine glucose detectionOrder ed By: Jae Mcclure on 01-23-2025 Glucose Ql (U) Normal mg/dl Normal [facility] Urine leukocyte esterase det ection by dipstickOrdered By: Jae Mcclure on 01-23-2025 Leukocyte esterase Test strip Ql (U) 100 /ul High Negative [facility] Urine pHOrdered By: Jae boyle on 01-23-2025 pH (U) 6.0 [pH] 5.0 - 8.0 [facility] Urine sediment bacteria coun t by microscopy (number/high power field)Ordered By: Jae Mcclure on 01-23-2025 Bacteria LM.HPF (Urine sed) [#/Area] 0 /[HPF] None Seen [facility] Urine specific gravity measu rementOrdered By: Jae Mcclure on 01-23-2025 Specific gravity (U) [Rel density] 1.015 1.002-1.030 [facility] Urine urobilinogen measureme ntOrdered By: Jae Mcclure on 01-23-2025 Urobilinogen Ql (U) Normal mg/dl Normal [facility] White blood cell (WBC) count Ordered By: ED PROVIDER on 01-23-2025 WBC (Bld) [#/Vol] 5.4 10*3/uL 4.4-11.0 [facility] White blood cell countOrdere d By: Jae Mcclure on 01-23-2025 White blood cell count 10-25 SEEN /hpf 0-5 [facility] Culture, Blood (WB)on 2024 CUB No growth in 5 days. Normal [facility] Comment on above: Performed By: #### L 9000.0800 #### [facility] [address] [place], [address] Immunoglobulin Andrew 5 IMMUNOGLOB E QN 214 IU/mL Normal 6-495 [facility] Comment on above: Result Comment: Perf ormed at: [facility] [id number] Borderer: Zafar Browne MD, Phone: [phone] Performed By: #### L 3400.5105, L3200.1600, L503.7505, L509.7000 #### [facility] [address] [place], [address] Tryptaseon 01-02-2025 TRYPTASE 6.8 ug/L Normal 2.2-13.2 [facility] Comment on above: Performed By: #### L 3400.5105, L3200.1600, [id number], L509.7008 #### [facility] [address] [place], [address] CNOVon 01-01-2025 CNOV Office Visit (FAMPWS ) -- NAZARIO HUTTON ([id number]) 1950 M Date Time Provider Department 01/01/25 [...] pharmacy and is scheduled to see an Education Director on January 23. Prozac was discontinued by the hospitalist due to possible correlation with angioedema. 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 Normal [facility] C1 EST Inhibitor, Functional on 12-31-2024 C1 EST INH FUNC 102 Normal . [facility] Comment on above: Result Comment: Resu lt Units: %mean normal Abnormal <41 Equivocal 41 - 67 Normal >67 Performed at: - [address] [id number] Borderer: Zafar Browne MD, Phone: [phone] Performed By: #### L 3400.5105, L3200.1600, L503.9533, L509.1546 #### [facility] [address] [place], [place], [id number] Hepatitis Panel Acuteon 12-22 COMMENT Comment Normal . [facility] Comment on above: Result Comment: Not infected with HCV unless early or acute infection is suspected (which may be delayed in an immunocompromised individual), or other evidence exists to indicate HCV infection. Performed at: - [facility] [id number] Borderer: José Miguel Alba PhD, Phone: [phone] Performed By: #### L 9000.0800 #### [facility] [address] [place], [address] HEP B CORE,IgM Negative Normal Negative [facility] Comment on above: Performed By: #### L 9000.0800 #### [facility] [address] [place], [address] HEP B SURF AG Negative Normal Negative [facility] Comment on above: Performed By: #### L 9000.0800 #### [facility] [address] [place], [address] HEP C VIRUS AB Non-Reactive Normal Non Reactive [facility] Comment on above: Performed By: #### L 9000.0800 #### [facility] [address] [place], [address] HEPATITIS A-IgM Negative Normal Negative [facility] Comment on above: Result Comment: A ne gative anti-HAV IgM result suggests no recent or current HAV infection. Performed By: #### L 9000.0800 #### [facility] [address] [facility] [place], [address] Respiratory Cultureon 2024 RESPC see [...] S Vancomycin Islt YOVANY 0.5 S Normal [facility] Comment on above: Performed By: #### L 500.2500, L100.0100 #### [facility] [address] [facility]. [place], [place], [id number] Absolute lymphocyte countOrd ered By: Alexi Olivas on 12-30-2024 Lymphocytes Auto (Unsp spec) [#/Vol] 0.45 10*3/uL Low 0.83-4.51 [facility] Absolute neutrophil countOrd ered By: Alexi Olivas on 12-30-2024 Neutrophils (Bld) [#/Vol] 10.5 10*3/uL High 2.0-7.7 [facility] Anion gap in Serum or Plasma Ordered By: Alexi Olivas on 12-30-2024 Anion gap [Moles/Vol] 10 mmol/L 5-15 [facility] Automated lymphocyte count a s percentage of total leukocytesOrdered By: Alexi Olivas on 12-30-2024 Lymphocytes/100 WBC Auto (Unsp spec) 3.8 % Low 19-41 [facility] BUN/creatinine ratioOrdered By: Alexi Olivas on 12-30-2024 Urea nitrogen/Creatinine [Mass ratio] 29.0 mg/mg High 10-20 [facility] Basic Metabolic Profile (BMP )on 12-30-2024 BUN/CRE 29.0 RATIO High 10-20 [facility] Comment on above: Performed By: #### L 500.2500, L100.0100 #### [facility] [address] [place], [address] Calcium [Mass/Vol] 9.0 mg/dL Normal 7.6-11.0 [facility] Comment on above: Performed By: #### L 500.2500, L100.0100 #### [facility] [address] [place], [address] Chloride [Moles/Vol] 107 mmol/L Normal 98-108 [facility] Comment on above: Performed By: #### L 500.2500, L100.0100 #### [facility] [address] [place], [address] CO2 [Moles/Vol] 24.1 mmol/L Normal 21.0-32.0 [facility] Comment on above: Performed By: #### L 500.2500, L100.0100 #### [facility] [address] [place], [address] Creatinine [Mass/Vol] 0.70 mg/dL Normal 0.70-1.20 [facility] Comment on above: Performed By: #### L 500.2500, L100.0100 #### [facility] [address] [place], [address] ECRCL 94.14 ml/min Normal 50-250 [facility] Comment on above: Performed By: #### L 500.2500, L100.0100 #### [facility] [address] [place], [address] GAP 10 Normal 5-15 [facility] Comment on above: Performed By: #### L 500.2500, L100.0100 #### [facility] [address] [place], [address] GFR/1.73 sq M.predicted among non-blacks MDRD (S/P/Bld) [Vol rate/Area] 97 mL/min/{1.73_m2} Normal >60 [facility] Comment on above: Result Comment: mL/m in/1.73m2 CKD-EPI Creatinine Equation (2020) Performed By: #### L 500.2500, L100.0100 #### [facility] [address] [place], [address] Glucose [Mass/Vol] 125 mg/dL High 70-99 [facility] Comment on above: Performed By: #### L 500.2500, L100.0100 #### [facility] [address] [place], [address] Potassium [Moles/Vol] 4.0 mmol/L Normal 3.3-5.1 [facility] Comment on above: Performed By: #### L 500.2500, L100.0100 #### [facility] [address] [place], [address] Sodium [Moles/Vol] 141 mmol/L Normal 133-145 [facility] Comment on above: Performed By: #### L 500.2500, L100.0100 #### [facility] [address] [place], [address] Urea nitrogen [Mass/Vol] 20 mg/dL High 4-19 [facility] Comment on above: Performed By: #### L 500.2500, L100.0100 #### [facility] [address] [place], [address] Basophil percentageOrdered B y: Alexi Olivas on 12-30-2024 Basophils/100 WBC (Bld) 0.2 % 0-1 [facility] CBC W/Diff, Automatedon Absolute Lymph 0.45 X10 3/uL Low 0.83-4.51 [facility] Comment on above: Performed By: #### L 500.2500, L100.0100 #### [facility] [address] [place], [address] Absolute Neut 10.5 X10 3/uL High 2.0-7.7 [facility] Comment on above: Performed By: #### L 500.2500, L100.0100 #### [facility] [address] [place], [address] Basophils/100 WBC (Bld) 0.2 % Normal 0-1 [facility] Comment on above: Performed By: #### L 500.2500, L100.0100 #### [facility] [address] [place], [address] Eosinophils/100 WBC (Bld) 0.0 % Normal 0-5 [facility] Comment on above: Performed By: #### L 500.2500, L100.0100 #### [facility] [address] [place], [address] Erythrocyte distribution width (RBC) [Ratio] 13.7 % Normal 11.6-14.6 [facility] Comment on above: Performed By: #### L 500.2500, L100.0100 #### [facility] [address] [place], [address] Hematocrit (Bld) [Volume fraction] 40.2 % Normal 40-54 [facility] Comment on above: Performed By: #### L 500.2500, L100.0100 #### [facility] [address] [place], [address] Hemoglobin (Bld) [Mass/Vol] 13.5 g/dL Normal 13.0-16.5 [facility] Comment on above: Performed By: #### L 500.2500, L100.0100 #### [facility] [address] [place], [address] IG% 1.000 High 0.0-0.9 [facility] Comment on above: Result Comment: IG% - Immature Granulocytes (promyelocytes, myelocytes and metamyelocytes) > 1% indicates that a LEFT SHIFT is Present. Performed By: #### L 500.2500, L100.0100 #### [facility] [address] [place], [address] Lymphocytes/100 WBC (Bld) 3.8 % Low 19-41 [facility] Comment on above: Performed By: #### L 500.2500, L100.0100 #### [facility] [address] [place], [address] MCH (RBC) [Entitic mass] 35.9 pg High 27.0-32.0 [facility] Comment on above: Performed By: #### L 500.2500, L100.0100 #### [facility] [address] [place], [address] MCHC (RBC) [Mass/Vol] 33.6 g/dL Normal 32-36 [facility] Comment on above: Performed By: #### L 500.2500, L100.0100 #### [facility] [address] [place], [address] MCV (RBC) [Entitic vol] 106.9 fL High 80-94 [facility] Comment on above: Performed By: #### L 500.2500, L100.0100 #### [facility] [address], [address] Monocytes/100 WBC (Bld) 6.4 % Normal 0-10 [facility] Comment on above: Performed By: #### L 500.2500, L100.0100 #### [facility] [address] [place], [address] Neutrophils/100 WBC (Bld) 88.6 % High 47-70 [facility] Comment on above: Performed By: #### L 500.2500, L100.0100 #### [facility] [address] [place], [address] Nucleated RBC (Bld) [#/Vol] 0 10*3/uL Normal 0-5 [facility] Comment on above: Performed By: #### L 500.2500, L100.0100 #### [facility] [address] [place], [address] Platelet mean volume (Bld) [Entitic vol] 9.8 fL Normal 6.2-12.0 [facility] Comment on above: Performed By: #### L 500.2500, L100.0100 #### [facility] [address] [place], [address] Platelets (Bld) [#/Vol] 185 10*3/uL Normal 150-450 [facility] Comment on above: Performed By: #### L 500.2500, L100.0100 #### [facility] [address] [place], [address] RBC (Bld) [#/Vol] 3.76 10*6/uL Low 4.6-6.2 [facility] Comment on above: Performed By: #### L 500.2500, L100.0100 #### [facility] [address] [place], [address] RDW SD 54.1 fl High 35.1-43.9 [facility] [facility] Comment on above: Performed By: #### L 500.2500, L100.0100 #### [facility] [address] [place], [address] WBC (Bld) [#/Vol] 11.8 10*3/uL High 4.4-11.0 [facility] Comment on above: Performed By: #### L 500.2500, L100.0100 #### [facility] [address] [place], [address] Carbon dioxide, total [Moles /volume] in Central venous bloodOrdered By: Alexi Olivas on 12-30-2024 CO2 [Moles/Vol] 24.1 mmol/L 21.0-32.0 [facility] Chloride assayOrdered By: Domenico Olivas on 12-30-2024 Chloride [Moles/Vol] 107 mmol/L 98-108 [facility] Electrocardiogram reportOrde red By: Sabrina Arrington on 12-30-2024 EKG study [facility] [address] [place] [address] 12 Lead EKG 12/27/24 1414 MR#: [id number] Acct: [id number] Name: NAZARIO HUTTON Rep #:[id number] : 1950 74 From: Sabrina cuevas MD [...] Abnormal ECG Confirmed by HUGH LUNA, MORRIS ([id number]), film or videotape editor CAREY BAUER ([id number]) on12/30/2024 6:52:47 AM Referred By: Confirmed By: MORRIS ARRINGTON MD 12/30/24 0652 Date _ Sabrina Arrington MD CC: Dr. Alexi Olivas DO; Dr. Valeriano Beasley MD; Dr. Marino Holguin MD ~ Signed [facility] Other Phone: Eosinophil percentageOrdered By: Alexi Olivas on 12-30-2024 Eosinophils/100 WBC (Bld) 0.0 % 0-5 [facility] Erythrocyte distribution wid th ratioOrdered By: Alexi Olivas on 12-30-2024 Erythrocyte distribution width (RBC) [Ratio] 13.7 % 11.6-14.6 [facility] Erythrocyte distribution wid th standard deviationOrdered By: Alexi Olivas on 12-30-2024 Erythrocyte distribution width (RBC) [Ratio] 54.1 fl High 35.1-43.9 [facility] Glomerular filtration rate ( GFR) estimation/1.73 sq m using serum, plasma, or whole bOrdered By: Alexi Olivas on 12-30-2024 GFR/1.73 sq M.predicted among non-blacks MDRD (S/P/Bld) [Vol rate/Area] 97 mL/min/{1.73_m2} >60 [facility] Comment on above: mL/min/1.73m2 CKD-EP I Creatinine Equation (2020) Gram Stainon 12-30-2024 GS see mar Acceptable Specimen? Yes (<25 Epithelial cells per/lpf) Gram Stain 3+ Gram positive cocci 2+ Gram positive rods 4+ White Blood Cells Normal [facility] Comment on above: Performed By: #### L 9000.0800 #### [facility] [address] [place], [address] GS Acceptable Specimen? Yes (<25 Epithelial cells per/lpf) Gram Stain 2+ Gram positive cocci 1+ Gram positive rods 3+ White Blood Cells Normal [facility] Comment on above: Performed By: #### L 500.2500, L100.0100 #### [facility] [address] [place], [address] Hematocrit Auto (Bld) [Volum e fraction]Ordered By: Alexi Olivas on 12-30-2024 Hematocrit (Bld) [Volume fraction] 40.2 % 40-54 [facility] Hemoglobin measurementOrdere d By: Alexi Olivas on 12-30-2024 Hemoglobin (Bld) [Mass/Vol] 13.5 g/dL 13.0-16.5 [facility] Immature granulocytes/100 WB C Auto (Bld)Ordered By: Alexi Olivas on 12-30-2024 Immature granulocytes/100 WBC (Bld) 1.000 % High 0.0-0.9 [facility] Comment on above: IG% - Immature Granu locytes (promyelocytes, myelocytes and metamyelocytes) > 1% indicates that a LEFT SHIFT is Present. MCV (mean corpuscular volume ) determinationOrdered By: Alexi Olivas on 12-30-2024 MCV (RBC) [Entitic vol] 106.9 fL High 80-94 [facility] Mean corpuscular hemoglobin (MCH) determinationOrdered By: Alexi Olivas on 12-30-2024 MCH (RBC) [Entitic mass] 35.9 pg High 27.0-32.0 [facility] Mean corpuscular hemoglobin concentration (MCHC) determinationOrdered By: Alexi Olivas on 12-30-2024 MCHC (RBC) [Mass/Vol] 33.6 g/dL 32-36 [facility] Mean platelet volume determi nationOrdered By: Alexi Olivas on 12-30-2024 Platelet mean volume (Bld) [Entitic vol] 9.8 fL 6.2-12.0 [facility] Monocyte percentageOrdered B y: Alexi Olivas on 12-30-2024 Monocytes/100 WBC (Bld) 6.4 % 0-10 [facility] Neutrophil percentageOrdered By: Alexi Olivas on 12-30-2024 Neutrophils/100 WBC (Bld) 88.6 % High 47-70 [facility] Nucleated red blood cell per centageOrdered By: Alexi Olivas on 12-30-2024 Nucleated RBC/100 WBC (Bld) [Ratio] 0 % 0-5 [facility] Platelet countOrdered By: Dmoenico Olivas on 12-30-2024 Platelets (Bld) [#/Vol] 185 10*3/uL 150-450 [facility] Potassium measurement (mass/ volume)Ordered By: Alexi Olivas on 12-30-2024 Potassium (Unsp spec) [Mass/Vol] 4.0 mmol/L 3.3-5.1 [facility] RBC Auto (Bld) [#/Vol]Ordere d By: Alexi Olivas on 12-30-2024 RBC (Bld) [#/Vol] 3.76 10*6/uL Low 4.6-6.2 [facility] Serum creatinine measurement (mass/volume)Ordered By: Alexi Olivas on 12-30-2024 Creatinine [Mass/Vol] 0.70 mg/dL 0.70-1.20 [facility] Serum glucose measurement (m ass/volume)Ordered By: Alexi Olivas on 12-30-2024 Glucose [Mass/Vol] 125 mg/dL High 70-99 [facility] Serum or plasma calcium reid urement (mass/volume)Ordered By: Alexi Olivas on 12-30-2024 Calcium [Mass/Vol] 9.0 mg/dL 7.6-11.0 [facility] Serum or plasma urea nitroge n measurement (mass/volume)Ordered By: Alexi Olivas on 12-30-2024 Urea nitrogen [Mass/Vol] 20 mg/dL High 4-19 [facility] Sodium levelOrdered By: Alexi Olivas on 12-30-2024 Sodium [Moles/Vol] 141 mmol/L 133-145 [facility] White blood cell (WBC) count Ordered By: Alexi Olivas on 12-30-2024 WBC (Bld) [#/Vol] 11.8 10*3/uL High 4.4-11.0 [facility] Assessment of wrist artery p atency prior to arterial punctureOrdered By: Alexi Olivas on 12-29-2024 Arterial patency Wrist artery --pre arterial puncture Positive [facility] Basic Metabolic Profile (BMP )on 12-29-2024 BUN/CRE 20.7 RATIO High 10-20 [facility] Comment on above: Performed By: #### L 3890.6200 #### [facility] [address] [place], [address] Calcium [Mass/Vol] 9.1 mg/dL Normal 7.6-11.0 [facility] Comment on above: Performed By: #### L 3890.0 #### [facility] [address] [place], [address] Chloride [Moles/Vol] 105 mmol/L Normal 98-108 [facility] Comment on above: Performed By: #### L 3890.6200 #### [facility] [address] [place], [address] CO2 [Moles/Vol] 21.8 mmol/L Normal 21.0-32.0 [facility] Comment on above: Performed By: #### L 389.0 #### [facility] [address] [place], [address] Creatinine [Mass/Vol] 0.80 mg/dL Normal 0.70-1.20 [facility] Comment on above: Performed By: #### L 3890.6200 #### [facility] [address] [place], [address] ECRCL 94.28 ml/min Normal 50-250 [facility] Comment on above: Performed By: #### L 3890.6200 #### [facility] [address] [place], [address] GAP 12 Normal 5-15 [facility] Comment on above: Performed By: #### L 3890.6200 #### [facility] [address] [place], [address] GFR/1.73 sq M.predicted among non-blacks MDRD (S/P/Bld) [Vol rate/Area] 93 mL/min/{1.73_m2} Normal >60 [facility] Comment on above: Result Comment: mL/m in/1.73m2 CKD-EPI Creatinine Equation (2020) Performed By: #### L 3890.6200 #### [facility] [address] [place], [address] Glucose [Mass/Vol] 169 mg/dL High 70-99 [facility] Comment on above: Performed By: #### L 3890.6200 #### [facility] [address] [place], [address] Potassium [Moles/Vol] 4.3 mmol/L Normal 3.3-5.1 [facility] Comment on above: Performed By: #### L 3890.0 #### [facility] [address] [place], [address] Sodium [Moles/Vol] 139 mmol/L Normal 133-145 [facility] Comment on above: Performed By: #### L 3890.6200 #### [facility] [address] [place], [address] Urea nitrogen [Mass/Vol] 17 mg/dL Normal 4-19 [facility] Comment on above: Performed By: #### L 3890.6200 #### [facility] [address] [place], [address] [facility] Positive Normal [facility] Comment on above: Performed By: #### L 9000.0800 #### [facility] [address] [place], [address] Base excess Calc (Bld) [Moles/Vol] 4 mmol/L High -2 to +2 [facility] Comment on above: Performed By: #### L 9000.0800 #### [facility] [address] [place], [address] Blood Gas Type ART Normal [facility] Comment on above: Performed By: #### L 0.0800 #### [facility] [address] [place], [address] CO2 [Moles/Vol] 29 mmol/L Normal [facility] Comment on above: Performed By: #### L 0.0800 #### [facility] [address] [place], [address] FI02 30.0 Normal [facility] Comment on above: Performed By: #### L 0.0800 #### [facility] [address] [place], [address] HCO3 (Bld) [Moles/Vol] 27.9 mmol/L High 22-26 [facility] Comment on above: Performed By: #### L 0.0800 #### [facility] [address] [place], [address] Mode AC Normal [facility] Comment on above: Performed By: #### L 9000.0800 #### [facility] [address] [place], [address] O2 Delivery Dev ET Tube Normal [facility] Comment on above: Performed By: #### L 0.0800 #### [facility] [address] [place], [address] pCO2 40.5 mmHg Normal 35-45 [facility] Comment on above: Performed By: #### L 0.0800 #### [facility] [address] [place], [address] PEEP 5 Normal [facility] Comment on above: Performed By: #### L 0.0800 #### [facility] [address] [place], [address] pH (Bld) 7.45 [pH] Normal 7.35-7.45 [facility] Comment on above: Performed By: #### L 9000.0800 #### [facility] [address] [place], [address] PO2 76 mmHG Normal 75-100 [facility] Comment on above: Performed By: #### L 9000.0800 #### [facility] [address] [place], [address] RR 14 Normal [facility] Comment on above: Performed By: #### L 9000.0800 #### [facility] [address] [place], [address] SITE R Radial Normal [facility] Comment on above: Performed By: #### L 9000.0800 #### [facility] [address] [place], [address] SO2 96 Normal 95-99 [facility] Comment on above: Performed By: #### L 9000.0800 #### [facility] [address] [place], [address] Vt 500.0 mL Normal [facility] Comment on above: Performed By: #### L 9000.0800 #### [facility] [address] [place], [address] Blood base excess determinat ionOrdered By: Alexi Olivas on 12-29-2024 Base excess Calc (BldV) [Moles/Vol] 4 mmol/L High -2-2 [facility] Blood bicarbonate measuremen tOrdered By: Alexi Olivas on 12-29-2024 HCO3 (Bld) [Moles/Vol] 27.9 mmol/L High 22-26 [facility] Blood cultureOrdered By: Donnie Myers on 12-29-2024 Bacteria identified Cx Nom (Bld) No growth in 5 days. [facility] CBC W/Diff, Automatedon 06-0 8-2024 Absolute Lymph 0.43 X10 3/uL Low 0.83-4.51 [facility] Comment on above: Performed By: #### L 3890.6200 #### [facility] [address] [place], [address] Absolute Neut 13.7 X10 3/uL High 2.0-7.7 [facility] Comment on above: Performed By: #### L 3890.6200 #### [facility] [address] [place], [address] Basophils/100 WBC (Bld) 0.1 % Normal 0-1 [facility] Comment on above: Performed By: #### L 3890.0 #### [facility] [address] [place], [address] Eosinophils/100 WBC (Bld) 0.0 % Normal 0-5 [facility] Comment on above: Performed By: #### L 389.0 #### [facility] [address] [place], [address] Erythrocyte distribution width (RBC) [Ratio] 13.5 % Normal 11.6-14.6 [facility] Comment on above: Performed By: #### L 3890.0 #### [facility] [address] [place], [address] Hematocrit (Bld) [Volume fraction] 42.1 % Normal 40-54 [facility] Comment on above: Performed By: #### L 3890.6200 #### [facility] [address] [place], [address] Hemoglobin (Bld) [Mass/Vol] 14.3 g/dL Normal 13.0-16.5 [facility] Comment on above: Performed By: #### L 3890.6200 #### [facility] [address] [place], [address] IG% 0.500 Normal 0.0-0.9 [facility] Comment on above: Result Comment: IG% - Immature Granulocytes (promyelocytes, myelocytes and metamyelocytes) > 1% indicates that a LEFT SHIFT is Present. Performed By: #### L 389.0 #### [facility] [address] [place], [address] Lymphocytes/100 WBC (Bld) 2.9 % Low 19-41 [facility] Comment on above: Performed By: #### L 3889.0 #### [facility] [address] [place], [address] MCH (RBC) [Entitic mass] 35.8 pg High 27.0-32.0 [facility] Comment on above: Performed By: #### L 3889.6199 #### [facility] [address] [place], [address] MCHC (RBC) [Mass/Vol] 34.0 g/dL Normal 32-36 [facility] Comment on above: Performed By: #### L 3889.0 #### [facility] [address] [place], [address] MCV (RBC) [Entitic vol] 105.5 fL High 80-94 [facility] Comment on above: Performed By: #### L 3889.6199 #### [facility] [address] [place], [address] Monocytes/100 WBC (Bld) 4.4 % Normal 0-10 [facility] Comment on above: Performed By: #### L 3889.0 #### [facility] [address] [place], [address] Neutrophils/100 WBC (Bld) 92.1 % High 47-70 [facility] Comment on above: Performed By: #### L 3889.6199 #### [facility] [address] [place], [address] Nucleated RBC (Bld) [#/Vol] 0 10*3/uL Normal 0-5 [facility] Comment on above: Performed By: #### L 3890.6200 #### [facility] [address] [place], [address] Platelet mean volume (Bld) [Entitic vol] 10.0 fL Normal 6.2-12.0 [facility] Comment on above: Performed By: #### L 3890.6200 #### [facility] [address], [address] Platelets (Bld) [#/Vol] 198 10*3/uL Normal 150-450 [facility] Comment on above: Performed By: #### L 3890.0 #### [facility] [address] [place], [address] RBC (Bld) [#/Vol] 3.99 10*6/uL Low 4.6-6.2 [facility] Comment on above: Performed By: #### L 3890.6200 #### [facility] [address] [place], [address] RDW SD 52.8 fl High 35.1-43.9 [facility] Comment on above: Performed By: #### L 3890.6200 #### [facility] [address] [place], [address] WBC (Bld) [#/Vol] 14.8 10*3/uL High 4.4-11.0 [facility] Comment on above: Performed By: #### L 389.6200 #### [facility] [address] [place], [address] Chest 1 View (Portable)on Chest 1 View (Portable) [facility] Imaging Services [address] [place] [id number] Chest 1 View (Portable) MR#: [id number] Acct: [id number] Name: NAZARIO HUTTON Rep #: [id number] : 1950 M 74 From: Anoop price MD PCP: Dr. Valeriano Beasley MD Status: ADM IN Study: Chest 1 View (Portable) Date of Exam: 12/29/24 Exam# [id number] Ordering Dr: Mohit Myers MD PROCEDURE: CHEST [...] View (Portable) IMPRESSION: See above Reading Location: [facility] CC: Dr. Valeriano Beasley MD; Dr. Mohit Myers MD Child And Adolescent Therapist: Signed Normal [facility] HIVon 12-29-2024 HIV Non-Reactive Normal Nonreactive [facility] Comment on above: Result Comment: Non- Reactive Reactive Repeatedly reactive samples must be confirmed according to CDC recommended confirmatory algorithms. The subresults for either HIVAG or AHIV can be used as an aid in the selection of the confirmation algorithm for reactive samples. Send out specimens with Reactive results to [facility] for confirmation. Order the HIV antibody detection and differentiation: lc#[id number] Performed By: #### L 3890.6200 #### [facility] [address] [place], [place], [id number] Influenza virus A and B and SARS-CoV-2 (COVID-19) and Respiratory syncytial virus RNAOrdered By: Mohit Myers on 12-29-2024 SARS-CoV-2 (COVID-19) RNA DEMARIO+probe Ql (Unsp spec) [facility] M100.678on 12-29-2024 M100.678 Pending SARS-CoV-2 (COVID 19) Negative INFLUENZA A Negative INFLUENZA B Negative RSV PCR Negative Normal [facility] Comment on above: Performed By: #### L 3400.5105, L3200.1600, L503.7505, L509.7001 #### [facility] [address] [place], [place], [address] Measurement, pHOrdered By: Courtney Olivas on 12-29-2024 pH (Unsp spec) 7.45 [pH] 7.35-7.45 [facility] No Panel InformationOrdered By: Alexi Olivas on 12-29-2024 Bedside Blood Gas PEEP 5 [facility] Blood Gas Respiration Rate 14 [facility] Blood Gas Sample Site R Radial [facility] Blood Gas Specimen Type ART [facility] Blood Gas Tidal Volume 500.0 mL [facility] Blood Gas Vent Mode AC [facility] Oxygen Delivery Device ET Tube [facility] No Panel InformationOrdered By: Mohit Myers on 12-29-2024 Hepatitis C Antibody Comment Comment . [facility] Comment on above: Not infected with HC V unless early or acute infection issuspected (which may be delayed in an immunocompromisedindividual), or other evidence exists to indicate HCVinfection.Performed at: [address] [id number] Director: José Miguel Alba PhD, Phone: [phone] HIV (1&2) Antibody Non-Reactive Nonreactive [facility] Comment on above: Non-ReactiveReactive Repeatedly reactive samples must be confirmed according to CDC recommended confirmatory algorithms. The subresults for either HIVAG or AHIV can be used as an aid in the selection of the confirmation algorithm for reactive samples.Send out specimens with Reactive results to [facility] for confirmation.Order the HIV antibody detection and differentiation: #[id number] Serum or plasma hepatitis B virus surface antigen detection by immunoassayOrdered By: Mohit Myers on 12-29-2024 HBV surface Ag IA Ql Negative Negative [facility] Total carbon dioxide measure mentOrdered By: Alexi Olivas on 12-29-2024 CO2 [Moles/Vol] 29 mmol/L [facility] Urinalysis, Completeon 12-29 BACTERIA Normal None Seen [facility] Comment on above: Order Comment: ALICIA CTOR TO SPECIFY Result Comment: AUGUSTUS ENT DISCHARGED Performed By: #### L 9000.0800 #### [facility] [address] [place], [address] BILIRUBIN URINE Normal Negative [facility] Comment on above: Order Comment: COLLE CTOR TO SPECIFY Result Comment: AUGUSTUS ENT DISCHARGED Performed By: #### L 9000.0800 #### [facility] [address] [place], [address] Clarity (U) Normal Clear [facility] Comment on above: Order Comment: ALICIA CTOR TO SPECIFY Result Comment: AUGUSTUS ENT DISCHARGED Performed By: #### L 9000.0800 #### [facility] [address] [place], [address] Color (U) Normal Yellow [facility] Comment on above: Order Comment: ALICIA CTOR TO SPECIFY Result Comment: AUGUSTUS ENT DISCHARGED Performed By: #### L 9000.0800 #### [facility] [address] [place], [address] EPI,SQUAMOUS Normal 0-5 [facility] Comment on above: Order Comment: ALICIA CTOR TO SPECIFY Result Comment: AUGUSTUS ENT DISCHARGED Performed By: #### L 9000.0800 #### [facility] [address] [place], [address] GLUCOSE, UR Normal Normal [facility] Comment on above: Order Comment: ALICIA CTOR TO SPECIFY Result Comment: AUGUSTUS ENT DISCHARGED Performed By: #### L 9000.0800 #### [facility] [address] [place], [address] KETONE UR Normal Negative [facility] Comment on above: Order Comment: ALICIA CTOR TO SPECIFY Result Comment: AUGUSTUS ENT DISCHARGED Performed By: #### L 9000.0800 #### [facility] [address] [place], [address] LEUK ESTERASE Normal Negative [facility] Comment on above: Order Comment: COLLE CTOR TO SPECIFY Result Comment: AUGUSTUS ENT DISCHARGED Performed By: #### L 9000.0800 #### [facility] [address] [place], [address] Mucus Ql (Urine sed) Normal [facility] Comment on above: Order Comment: COLLE CTOR TO SPECIFY Result Comment: AUGUSTUS ENT DISCHARGED Performed By: #### L 9000.0800 #### [facility] [address] [place], [address] Nitrite Ql (U) Normal Negative [facility] Comment on above: Order Comment: COLLE CTOR TO SPECIFY Result Comment: AUGUSTUS ENT DISCHARGED Performed By: #### L 9000.0800 #### [facility] [address] [place], [address] OCCULT BLOOD-UR Normal Negative [facility] Comment on above: Order Comment: COLLE CTOR TO SPECIFY Result Comment: AUGUSTUS ENT DISCHARGED Performed By: #### L 9000.0800 #### [facility] [address] [place], [address] pH UR Normal 5.0 - 8.0 [facility] Comment on above: Order Comment: COLLE CTOR TO SPECIFY Result Comment: AUGUSTUS ENT DISCHARGED Performed By: #### L 9000.0800 #### [facility] [address] [place], [address] PROT DIPSTX Normal Negative [facility] Comment on above: Order Comment: COLLE CTOR TO SPECIFY Result Comment: AUGUSTUS ENT DISCHARGED Performed By: #### L 9000.0800 #### [facility] [address] [place], [address] RBC Normal 0-5 [facility] Comment on above: Order Comment: COLLE CTOR TO SPECIFY Result Comment: AUGUSTUS ENT DISCHARGED Performed By: #### L 9000.0800 #### [facility] [address] [place], [address] SP.GR. DIPSTX Normal 1.002-1.030 [facility] Comment on above: Order Comment: ALICIA ULRICHOR TO SPECIFY Result Comment: AUGUSTUS ENT DISCHARGED Performed By: #### L 9000.0800 #### [facility] [address] [place], [address] UR Preservative Normal [facility] Comment on above: Order Comment: COLLE CTOR TO SPECIFY Result Comment: AUGUSTUS ENT DISCHARGED Performed By: #### L 9000.0800 #### [facility] [address] [place], [address] UROBILI Normal Normal [facility] Comment on above: Order Comment: ALICIA CTOR TO SPECIFY Result Comment: AUGUSTUS ENT DISCHARGED Performed By: #### L 9000.0800 #### [facility] [address] [place], [address] WBC Normal 0-5 [facility] Comment on above: Order Comment: ALICIA CTOR TO SPECIFY Result Comment: AUGUSTUS ENT DISCHARGED Performed By: #### L 9000.0800 #### [facility] [address] [place], [address] BACTERIA 0 SEEN Normal None Seen [facility] Comment on above: Order Comment: DERRICK TER SPECIMEN Result Comment: @REC EIVED ON ACCIDENT. REORDERED Performed By: #### L 400.0001 #### [facility] [address] [place], [address] EPI,SQUAMOUS 0 SEEN Normal 0-5 [facility] Comment on above: Order Comment: DERRICK TER SPECIMEN Result Comment: @REC EIVED ON ACCIDENT. REORDERED Performed By: #### L 400.0001 #### [facility] [address] [place], [address] Mucus Ql (Urine sed) 0 SEEN Normal [facility] Comment on above: Order Comment: DERRICK TER SPECIMEN Result Comment: @REC EIVED ON ACCIDENT. REORDERED Performed By: #### L 400.0001 #### [facility] [address] [place], [address] RBC 0 SEEN Normal 0-5 [facility] Comment on above: Order Comment: DRERICK TER SPECIMEN Result Comment: @REC EIVED ON ACCIDENT. REORDERED Performed By: #### L 400.0001 #### [facility] [address] [place], [address] WBC 0 SEEN Normal 0-5 [facility] Comment on above: Order Comment: DERRICK TER SPECIMEN Result Comment: @REC EIVED ON ACCIDENT. REORDERED Performed By: #### L 400.0001 #### [facility] [address] [place], [address] BILIRUBIN URINE Normal Negative [facility] Comment on above: Order Comment: DERRICK TER SPECIMEN Result Comment: @REC EIVED ON ACCIDENT. REORDERED Performed By: #### L 400.0001 #### [facility] [address] [place], [address] Clarity (U) Normal Clear [facility] Comment on above: Order Comment: DERRICK TER SPECIMEN Result Comment: @REC EIVED ON ACCIDENT. REORDERED Performed By: #### L 400.0001 #### [facility] [address] [place], [address] Color (U) Normal Yellow [facility] Comment on above: Order Comment: DERRICK TER SPECIMEN Result Comment: @REC EIVED ON ACCIDENT. REORDERED Performed By: #### L 400.0001 #### [facility] [address] [place], [address] GLUCOSE, UR Normal Normal [facility] Comment on above: Order Comment: DERRICK TER SPECIMEN Result Comment: @REC EIVED ON ACCIDENT. REORDERED Performed By: #### L 400.0001 #### [facility] [address] [place], [address] KETONE UR Normal Negative [facility] Comment on above: Order Comment: DERRICK TER SPECIMEN Result Comment: @REC EIVED ON ACCIDENT. REORDERED Performed By: #### L 400.0001 #### [facility] [address] [place], [address] LEUK ESTERASE Normal Negative [facility] Comment on above: Order Comment: DERRICK TER SPECIMEN Result Comment: @REC EIVED ON ACCIDENT. REORDERED Performed By: #### L 400.0001 #### [facility] [address] [place], [address] Nitrite Ql (U) Normal Negative [facility] Comment on above: Order Comment: DERRICK TER SPECIMEN Result Comment: @REC EIVED ON ACCIDENT. REORDERED Performed By: #### L 400.0001 #### [facility] [address] [place], [address] OCCULT BLOOD-UR Normal Negative [facility] Comment on above: Order Comment: DERRICK TER SPECIMEN Result Comment: @REC EIVED ON ACCIDENT. REORDERED Performed By: #### L 400.0001 #### [facility] [address] [place], [address] pH UR Normal 5.0 - 8.0 [facility] Comment on above: Order Comment: DERRICK TER SPECIMEN Result Comment: @REC EIVED ON ACCIDENT. REORDERED Performed By: #### L 400.0001 #### [facility] [address] [place], [address] PROT DIPSTX Normal Negative [facility] Comment on above: Order Comment: DERRICK TER SPECIMEN Result Comment: @REC EIVED ON ACCIDENT. REORDERED Performed By: #### L 400.0001 #### [facility] [address] [place], [address] SP.GR. DIPSTX Normal 1.002-1.030 [facility] Comment on above: Order Comment: DERRICK TER SPECIMEN Result Comment: @REC EIVED ON ACCIDENT. REORDERED Performed By: #### L 400.0001 #### [facility] [address] [place], [address] UR Preservative Normal [facility] Comment on above: Order Comment: DERRICK TER SPECIMEN Result Comment: @REC EIVED ON ACCIDENT. REORDERED Performed By: #### L 400.0001 #### [facility] [address] [place], [address] UROBILI Normal Normal [facility] Comment on above: Order Comment: DERRICK TER SPECIMEN Result Comment: @REC EIVED ON ACCIDENT. REORDERED Performed By: #### L 400.0001 #### [facility] [address] [place], [address] Bilirubin, totalOrdered By: Flakita Florentino on 12-28-2024 Bilirubin [Mass/Vol] 0.59 mg/dL 0.00-1.30 [facility] CBC W/Diff, Automatedon Absolute Lymph 0.45 X10 3/uL Low 0.83-4.51 [facility] Comment on above: Performed By: #### L 9000.0800 #### [facility] [address] [place], [address] Absolute Neut 8.4 X10 3/uL High 2.0-7.7 [facility] Comment on above: Performed By: #### L 9000.0800 #### [facility] [address] [place], [address] Basophils/100 WBC (Bld) 0.1 % Normal 0-1 [facility] Comment on above: Performed By: #### L 9000.0800 #### [facility] [address] [place], [address] Eosinophils/100 WBC (Bld) 0.0 % Normal 0-5 [facility] Comment on above: Performed By: #### L 9000.0800 #### [facility] [address] [place], [address] Erythrocyte distribution width (RBC) [Ratio] 13.3 % Normal 11.6-14.6 [facility] Comment on above: Performed By: #### L 9000.0800 #### [facility] [address] [place], [address] Hematocrit (Bld) [Volume fraction] 41.5 % Normal 40-54 [facility] Comment on above: Performed By: #### L 9000.0800 #### [facility] [address] [place], [address] Hemoglobin (Bld) [Mass/Vol] 14.4 g/dL Normal 13.0-16.5 [facility] Comment on above: Performed By: #### L 9000.0800 #### [facility] [address] [place], [address] IG% 0.600 Normal 0.0-0.9 [facility] Comment on above: Result Comment: IG% - Immature Granulocytes (promyelocytes, myelocytes and metamyelocytes) > 1% indicates that a LEFT SHIFT is Present. Performed By: #### L 9000.0800 #### [facility] [address] [place], [address] Lymphocytes/100 WBC (Bld) 5.0 % Low 19-41 [facility] Comment on above: Performed By: #### L 9000.0800 #### [facility] [address] [place], [address] MCH (RBC) [Entitic mass] 36.0 pg High 27.0-32.0 [facility] Comment on above: Performed By: #### L 9000.0800 #### [facility] [address] [place], [address] MCHC (RBC) [Mass/Vol] 34.7 g/dL Normal 32-36 [facility] Comment on above: Performed By: #### L 9000.0800 #### [facility] [address] [place], [address] MCV (RBC) [Entitic vol] 103.8 fL High 80-94 [facility] Comment on above: Performed By: #### L 9000.0800 #### [facility] [address] [place], [address] Monocytes/100 WBC (Bld) 1.4 % Normal 0-10 [facility] Comment on above: Performed By: #### L 9000.0800 #### [facility] [address] [place], [address] Neutrophils/100 WBC (Bld) 92.9 % High 47-70 [facility] Comment on above: Performed By: #### L 9000.0800 #### [facility] [address] [place], [address] Nucleated RBC (Bld) [#/Vol] 0 10*3/uL Normal 0-5 [facility] Comment on above: Performed By: #### L 9000.0800 #### [facility] [address] [place], [address] Platelet mean volume (Bld) [Entitic vol] 9.8 fL Normal 6.2-12.0 [facility] Comment on above: Performed By: #### L 9000.0800 #### [facility] [address] [place], [address] Platelets (Bld) [#/Vol] 180 10*3/uL Normal 150-450 [facility] Comment on above: Performed By: #### L 9000.0800 #### [facility] [address] [place], [address] RBC (Bld) [#/Vol] 4.00 10*6/uL Low 4.6-6.2 [facility] Comment on above: Performed By: #### L 9000.0800 #### [facility] [address] [place], [address] RDW SD 51.4 fl High 35.1-43.9 [facility] Comment on above: Performed By: #### L 9000.0800 #### [facility] [address] [place], [address] WBC (Bld) [#/Vol] 9.0 10*3/uL Normal 4.4-11.0 [facility] Comment on above: Performed By: #### L 9000.0800 #### [facility] [address] [place], [address] Comprehensive Metabolic Prof [facility] 12-28-2024 Albumin [Mass/Vol] 3.7 g/dL Normal 3.4-4.8 [facility] Comment on above: Performed By: #### L 9000.0800 #### [facility] [address] [place], [address] Albumin/Globulin [Mass ratio] 1.0 {ratio} Normal 0.9-2.4 [facility] Comment on above: Performed By: #### L 9000.0800 #### [facility] [address] [place], [address] ALK PHOS 149 U/L High 40-129 [facility] Comment on above: Performed By: #### L 9000.0800 #### [facility] [address] [place], [address] ALT [Catalytic activity/Vol] 31 U/L Normal <=46 [facility] Comment on above: Performed By: #### L 9000.0800 #### [facility] [address] [place], [address] AST [Catalytic activity/Vol] 42 U/L High <=37 [facility] Comment on above: Result Comment: Hemo lysis present, Results??could be affected. ?? Performed By: #### L 9000.0800 #### [facility] [address] [place], [address] Bilirubin [Mass/Vol] 0.59 mg/dL Normal 0.00-1.30 [facility] Comment on above: Performed By: #### L 9000.0800 #### [facility] [address] [place], [address] BUN/CRE 15.6 RATIO Normal 10-20 [facility] Comment on above: Performed By: #### L 9000.0800 #### [facility] [address] [place], [address] Calcium [Mass/Vol] 9.0 mg/dL Normal 7.6-11.0 [facility] Comment on above: Performed By: #### L 9000.0800 #### [facility] [address] [place], [address] Chloride [Moles/Vol] 105 mmol/L Normal 98-108 [facility] Comment on above: Performed By: #### L 9000.0800 #### [facility] [address] [place], [address] CO2 [Moles/Vol] 19.7 mmol/L Low 21.0-32.0 [facility] Comment on above: Performed By: #### L 9000.0800 #### [facility] [address] [place], [address] Creatinine [Mass/Vol] 0.69 mg/dL Low 0.70-1.20 [facility] Comment on above: Performed By: #### L 9000.0800 #### [facility] [address] [place], [address] ECRCL 94.14 ml/min Normal 50-250 [facility] Comment on above: Performed By: #### L 9000.0800 #### [facility] [address] [place], [address] GAP 13 Normal 5-15 [facility] Comment on above: Performed By: #### L 9000.0800 #### [facility] [address] [place], [address] GFR/1.73 sq M.predicted among non-blacks MDRD (S/P/Bld) [Vol rate/Area] 97 mL/min/{1.73_m2} Normal >60 [facility] Comment on above: Result Comment: mL/m in/1.73m2 CKD-EPI Creatinine Equation (2020) Performed By: #### L 9000.0800 #### [facility] [address] [place], [address] Globulin (S) [Mass/Vol] 3.6 g/dL Normal 2.2-4.2 [facility] Comment on above: Performed By: #### L 9000.0800 #### [facility] [address] [place], [address] Glucose [Mass/Vol] 178 mg/dL High 70-99 [facility] Comment on above: Performed By: #### L 9000.0800 #### [facility] [address] [place], [address] Potassium [Moles/Vol] 4.3 mmol/L Normal 3.3-5.1 [facility] Comment on above: Result Comment: Hemo lysis present, Results??could be affected. ?? Performed By: #### L 9000.0800 #### [facility] [address] [place], [address] Sodium [Moles/Vol] 137 mmol/L Normal 133-145 [facility] Comment on above: Performed By: #### L 9000.0800 #### [facility] [address] [place], [id number] T PROT 7.2 g/dL Normal 5.9-8.4 [facility] Comment on above: Performed By: #### L 9000.0800 #### [facility] [address] [place], [address] Urea nitrogen [Mass/Vol] 11 mg/dL Normal 4-19 [facility] Comment on above: Performed By: #### L 9000.0800 #### [facility] [address] [place], [address] Consultation - Intens[employer]iston 12-28-2024 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 [facility] Medical Records Department [address] [place] [address] 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 12/28/24 0916 MR#: [id number] Acct: [id number] Name: NAZARIO HUTTON Rep #: [id number] : 1950 74 From: Mohit Myers MD [...] ROS: Unable to obtain as pt intubated [facility] Medical History High serum parathyroid hormone (PTH) Heart murmur Elevated alkaline phosphatase level Elevated PSA Diverticulosis AVM (arteriovenous malformation) of colon Vitamin D deficiency Gout Alcohol abuse Essential hypertension Chest pain Anxiety Depression Myocardial infarct Chest pain Acute blood loss anemia Bloody diarrhea Coronary artery disease Atherosclerotic heart disease of citizen [place] coronary artery without angina pectoris ST elevation [place] (STEMI) ( 11/29/21) Hyperlipidemia Hypertension Home Medications [...] disease Hypertension Myocardial infarction age 53 following OK. Surgical History H/O colonoscopy S/P cataract extraction [...] / 400 (more content not included)... Normal [facility] Gram stainOrdered By: Mohit Myers on 12-28-2024 Microscopic observation Gram stain Nom (Unsp spec) [facility] IgEOrdered By: Mohit Myers on 12-28-2024 IgE 214 IU/mL 6-495 [facility] Comment on above: Performed at: [facility] [place], [place] [id number] Director: Zafar Browne MD, Phone: [phone] [id number] 12-28-2024 Natriuretic peptide B (Bld) [Mass/Vol] 2229 pg/mL High <=900 [facility] Comment on above: Result Comment: Hear t Failure Unlikely: < 300 pg/mL Heart Failure Likely < 50 Years: > 450 pg/mL 50-75 Years: > 900 pg/mL >75 Years: > 1800 pg/mL Performed By: #### L 3400.5105, L3200.1600, L503.7505, L509.7001 #### [facility] [address] [place], [place], [address] [id number] 12-28-2024 Procalcitonin 0.18 ng/mL High <=0.10 [facility] Comment on above: Result Comment: Inte rpretation: [...] #### L 3400.5105, L3200.1600, L503.7505, L509.7001 #### [facility] [address] [place], [place], [address] Laboratory - Chemistry and C hemistry - challengeOrdered By: Flakita Florentino on 12-28-2024 AST [Catalytic activity/Vol] 42 U/L High <38 [facility] Comment on above: Hemolysis present, R esults could be affected. Magnesiumon 12-28-2024 Magnesium [Mass/Vol] 2.1 mg/dL Normal 1.5-2.2 [facility] Comment on above: Performed By: #### L 9000.0800 #### [facility] [address] [place], [place], [address] Magnesium measurement (mass/ volume)Ordered By: Flkaita Florentino on 12-28-2024 Magnesium (Unsp spec) [Mass/Vol] 2.1 mg/dL 1.5-2.2 [facility] Microbial respiratory cultur eOrdered By: Mohit Myers on 12-28-2024 Microorganism identified Cx Nom (Unsp spec) Staphylococcus aureus Abnormal [facility] Microorganism identified Cx Nom (Unsp spec) Streptococcus agalactiae (B) Abnormal [facility] Microorganism identified Cx Nom (Unsp spec) Streptococcus group F Abnormal [facility] Natriuretic peptide.B prohor archie N-Terminal [Mass/volume] in Serum or PlasmaOrdered By: Mohit Myers on 12-28-2024 Natriuretic peptide.B prohormone N-Terminal [Mass/Vol] 2229 pg/mL High <900 [facility] Comment on above: Heart Failure Unlike ly: < 300 pg/mLHeart Failure Likely< 50 Years: > 450 pg/mL50-75 Years: > 900 pg/mL>75 Years: > 1800 pg/mL Phosphoruson 12-28-2024 Phosphate [Mass/Vol] 3.3 mg/dL Normal 2.7-4.5 [facility] Comment on above: Performed By: #### L 9000.0800 #### [facility] [address] [facility]. [place], [place], [address] Procalcitonin [Mass/volume] in Serum or Plasma by ImmunoassayOrdered By: Mohit Myers on 12-28-2024 Procalcitonin IA [Mass/Vol] 0.18 ng/mL High <0.11 [facility] Comment on above: Interpretation:<0.10 -0.25 ng/mL: Antibiotic [...] beta-hemolytic Streptococcus or Staphylococcus aureus isolated. Normal [facility] Comment on above: Performed By: #### L 500.2500, L100.0100 #### [facility] [address] [place], [address] Serum globulin measurementOr dered By: Flakita Florentino on 12-28-2024 Globulin (S) [Mass/Vol] 3.6 g/dL 2.2-4.2 [facility] Serum or plasma alanine guevara otransferase (ALT) measurementOrdered By: Flakita Florentino on 12-28-2024 ALT [Catalytic activity/Vol] 31 U/L <47 [facility] Serum or plasma albumin reid urement (mass/volume)Ordered By: Flakita Florentino on 12-28-2024 Albumin [Mass/Vol] 3.7 g/dL 3.4-4.8 [facility] Serum or plasma albumin/glob ulin mass ratioOrdered By: Flakita Florentino on 12-28-2024 Albumin/Globulin [Mass ratio] 1.0 {ratio} 0.9-2.4 [facility] Serum or plasma alkaline adelfo sphatase measurementOrdered By: Flakita Florentino on 12-28-2024 ALP [Catalytic activity/Vol] 149 U/L High 40-129 [facility] Total proteinOrdered By: Dee Florentino on 12-28-2024 Protein [Mass/Vol] 7.2 g/dL 5.9-8.4 [facility] 12 Lead EKGon 12-27-2024 12 Lead EKG [facility] Cardiovascular Services [address] [place] [address] 12 Lead EKG 12/27/24 1414 MR#: [id number] Acct: [id number] Name: NAZARIO HUTTON Rep #: [id number] : 1950 74 From: Sabrina Arrington MD [...] Abnormal ECG Confirmed by HUGH LUNA, MORRIS ([id number]), film or videotape editor CAREY BAUER ([id number]) on 12/30/2024 6:52:47 AM Referred By: Confirmed By: MORRIS ARRINGTON MD 12/30/24651 Date Sabrina Arrington MD CC: Dr. Alexi Olivas DO; Dr. Valeriano Beasley MD; Dr. Marino Holguin MD Signed Normal [facility] Absolute lymphocyte countOrd ered By: Marino Holguin on 12-27-2024 Lymphocytes Auto (Unsp spec) [#/Vol] 0.73 10*3/uL Low 0.83-4.51 [facility] Absolute neutrophil countOrd ered By: Marino Holguin on 12-27-2024 Neutrophils (Bld) [#/Vol] 5.0 10*3/uL 2.0-7.7 [facility] Anion gap in Serum or Plasma Ordered By: Marino Holguin on 12-27-2024 Anion gap [Moles/Vol] 11 mmol/L 5-15 [facility] Assessment of wrist artery p atency prior to arterial punctureOrdered By: Marino Holguin on 12-27-2024 Arterial patency Wrist artery --pre arterial puncture Positive [facility] Automated lymphocyte count a s percentage of total leukocytesOrdered By: Marino Holguin on 12-27-2024 Lymphocytes/100 WBC Auto (Unsp spec) 9.8 % Low 19-41 [facility] BUN/creatinine ratioOrdered By: Marino Holguin on 12-27-2024 Urea nitrogen/Creatinine [Mass ratio] 14.1 mg/mg 10-20 [facility] Basophil percentageOrdered B y: Marino Holguin on 12-27-2024 Basophils/100 WBC (Bld) 0.8 % 0-1 [facility] Bilirubin, totalOrdered By: Marino Holguin on 12-27-2024 Bilirubin [Mass/Vol] 0.80 mg/dL 0.00-1.30 [facility] Blood Gases by CPSon 025 TATY TEST Positive Normal [facility] Comment on above: Performed By: #### L 9000.0800 #### [facility] [address] [place], [address] Base excess Calc (Bld) [Moles/Vol] 1 mmol/L Normal -2 to +2 [facility] Comment on above: Performed By: #### L 9000.0800 #### [facility] [address] [place], [address] Blood Gas Type ART Normal [facility] Comment on above: Performed By: #### L 9000.0800 #### [facility] [address] [place], [address] CO2 [Moles/Vol] 26 mmol/L Normal [facility] Comment on above: Performed By: #### L 9000.0800 #### [facility] [address] [place], [address] FI02 30.0 Normal [facility] Comment on above: Performed By: #### L 9000.0800 #### [facility] [address] [place], [address] HCO3 (Bld) [Moles/Vol] 24.9 mmol/L Normal 22-26 [facility] Comment on above: Performed By: #### L 9000.0800 #### [facility] [address] [place], [address] Mode AC Normal [facility] Comment on above: Performed By: #### L 9000.0800 #### [facility] [address] [place], [address] O2 Delivery Dev Adult Vent Normal [facility] Comment on above: Performed By: #### L 9000.0800 #### [facility] [address] [place], [address] pCO2 37.4 mmHg Normal 35-45 [facility] Comment on above: Performed By: #### L 9000.0800 #### [facility] [address] [place], [address] PEEP 5 Normal [facility] Comment on above: Performed By: #### L 9000.0800 #### [facility] [address] [place], [address] pH (Bld) 7.43 [pH] Normal 7.35-7.45 [facility] Comment on above: Performed By: #### L 9000.0800 #### [facility] [address] [place], [address] PO2 91 mmHG Normal 75-100 [facility] Comment on above: Performed By: #### L 9000.0800 #### [facility] [address] [place], [address] RR 14 Normal [facility] Comment on above: Performed By: #### L 9000.0800 #### [facility] [address] [place], [address] SITE L Radial Normal [facility] Comment on above: Performed By: #### L 9000.0800 #### [facility] [address] [place], [address] SO2 97 Normal 95-99 [facility] Comment on above: Performed By: #### L 9000.0800 #### [facility] [address] [place], [address] Vt 500.0 mL Normal [facility] Comment on above: Performed By: #### L 9000.0800 #### [facility] [address] [place], [address] Blood base excess determinat ionOrdered By: Marino Holguin on 12-27-2024 Base excess Calc (BldV) [Moles/Vol] 1 mmol/L -2-2 [facility] Blood bicarbonate measuremen tOrdered By: Marino Holguin on 12-27-2024 HCO3 (Bld) [Moles/Vol] 24.9 mmol/L [facility] CBC W/Diff, Automatedon Absolute Lymph 0.73 X10 3/uL Low 0.83-4.51 [facility] Comment on above: Performed By: #### L 3400.5105, L3200.1600, L503.7505, L509.7001 #### [facility] [address] [place], [address] Absolute Neut 5.0 X10 3/uL Normal 2.0-7.7 [facility] Comment on above: Performed By: #### L 3400.5105, L3200.1600, L503.7505, L509.7001 #### [facility] [address] [place], [address] Basophils/100 WBC (Bld) 0.8 % Normal 0-1 [facility] Comment on above: Performed By: #### L 3400.5105, L3200.1600, L503.7505, L509.7001 #### [facility] [address] [place], [address] Eosinophils/100 WBC (Bld) 10.8 % High 0-5 [facility] Comment on above: Performed By: #### L 3400.5105, L3200.1600, L503.7505, L509.7001 #### [facility] [address] [place], [address] Erythrocyte distribution width (RBC) [Ratio] 13.3 % Normal 11.6-14.6 [facility] Comment on above: Performed By: #### L 3400.5105, L3200.1600, L503.7505, L509.7001 #### [facility] [address] [place], [address] Hematocrit (Bld) [Volume fraction] 40.9 % Normal 40-54 [facility] Comment on above: Performed By: #### L 3400.5105, L3200.1600, L503.7505, L509.7001 #### [facility] [address] [place], [address] Hemoglobin (Bld) [Mass/Vol] 14.1 g/dL Normal 13.0-16.5 [facility] Comment on above: Performed By: #### L 3400.5105, L3200.1600, L503.7505, L509.7001 #### [facility] [address] [place], [address] IG% 0.300 Normal 0.0-0.9 [facility] Comment on above: Result Comment: IG% - Immature Granulocytes (promyelocytes, myelocytes and metamyelocytes) > 1% indicates that a LEFT SHIFT is Present. Performed By: #### L 3400.5105, L3200.1600, L503.7505, L509.7001 #### [facility] [address] [place], [address] Lymphocytes/100 WBC (Bld) 9.8 % Low 19-41 [facility] Comment on above: Performed By: #### L 3400.5105, L3200.1600, L503.7505, L509.7001 #### [facility] [address] [place], [address] MCH (RBC) [Entitic mass] 35.7 pg High 27.0-32.0 [facility] Comment on above: Performed By: #### L 3400.5105, L3200.1600, L503.7505, L509.7001 #### [facility] [address] [place], [address] MCHC (RBC) [Mass/Vol] 34.5 g/dL Normal 32-36 [facility] Comment on above: Performed By: #### L 3400.5105, L3200.1600, L503.7505, L509.7001 #### [facility] [address] [place], [address] MCV (RBC) [Entitic vol] 103.5 fL High 80-94 [facility] Comment on above: Performed By: #### L 3400.5105, L3200.1600, L503.7505, L509.7001 #### [facility] [address] [place], [address] Monocytes/100 WBC (Bld) 11.2 % High 0-10 [facility] Comment on above: Performed By: #### L 3400.5105, L3200.1600, L503.7505, L509.7001 #### [facility] [address] [place], [address] Neutrophils/100 WBC (Bld) 67.1 % Normal 47-70 [facility] Comment on above: Performed By: #### L 3400.5105, L3200.1600, L503.7505, L509.7001 #### [facility] [address] [place], [address] Nucleated RBC (Bld) [#/Vol] 0 10*3/uL Normal 0-5 [facility] Comment on above: Performed By: #### L 3400.5105, L3200.1600, L503.7505, L509.7001 #### [facility] [address] [place], [address] Platelet mean volume (Bld) [Entitic vol] 9.7 fL Normal 6.2-12.0 [facility] Comment on above: Performed By: #### L 3400.5105, L3200.1600, L503.7505, L509.7001 #### [facility] [address] [place], [address] Platelets (Bld) [#/Vol] 200 10*3/uL Normal 150-450 [facility] Comment on above: Performed By: #### L 3400.5105, L3200.1600, L503.7505, L509.7001 #### [facility] [address] [place], [address] RBC (Bld) [#/Vol] 3.95 10*6/uL Low 4.6-6.2 [facility] Comment on above: Performed By: #### L 3400.5105, L3200.1600, L503.7505, L509.7001 #### [facility] [address] [place], [address] RDW SD 51.5 fl High 35.1-43.9 [facility] Comment on above: Performed By: #### L 3400.5105, L3200.1600, L503.7505, L509.7001 #### [facility] [address] [place], [address] WBC (Bld) [#/Vol] 7.5 10*3/uL Normal 4.4-11.0 [facility] Comment on above: Performed By: #### L 3400.5105, L3200.1600, L503.7505, L509.7001 #### [facility] [address] [place], [address] CPK Total, Creatine Kinaseon 12-27-2024 CPK TOTAL 120 U/L Normal 24-195 [facility] Comment on above: Order Comment: Comme nts: DC when propofol is d/c'd Performed By: #### L 9000.0800 #### [facility] [address] [place], [address] Carbon dioxide, total [Moles /volume] in Central venous bloodOrdered By: Marino Holguin on 12-27-2024 CO2 [Moles/Vol] 23.1 mmol/L 21.0-32.0 [facility] Chest 1 View (Portable)on Chest 1 View (Portable) [facility] Imaging Services [address] [place] [address] Chest 1 View (Portable) MR#: [id number] Acct: [id number] Name: NAZARIO HUTTON Rep #: [id number] : 1950 M 74 From: Tessa Granados PCP: Dr. Valeriano Beasley MD Status: [facility] ER Study: Chest 1 View (Portable) Date of Exam: 12/27/24 Exam# [id number] Ordering Dr: Marino Holguin MD PROCEDURE: CHEST [...] Bilateral lower lung airspace disease is seen, [id number]-[id number]-qtnk-right. Differential diagnosis includes atelectasis and pneumonitis. No evidence of pulmonary edema. The cardiomediastinal silhouette is within the normal range. No acute osseous change is evident. Reading Location: [id number] CC: Dr. Valeriano Beasley MD; Dr. Marino Holguin MD Child And Adolescent Therapist: Signed Normal [facility] Chloride assayOrdered By: Jake Holguin on 12-27-2024 Chloride [Moles/Vol] 105 mmol/L 98-108 [facility] Comprehensive Metabolic Prof ilon 12-27-2024 Albumin [Mass/Vol] 4.0 g/dL Normal 3.4-4.8 [facility] Comment on above: Performed By: #### L 3400.5105, L3200.1600, L503.7505, L509.7001 #### [facility] [address] [place], [address] Albumin/Globulin [Mass ratio] 1.1 {ratio} Normal 0.9-2.4 [facility] Comment on above: Performed By: #### L 3400.5105, L3200.1600, L503.7505, L509.7001 #### [facility] [address] [place], [address] ALK PHOS 151 U/L High 40-129 [facility] Comment on above: Performed By: #### L 3400.5105, L3200.1600, L503.7505, L509.7001 #### [facility] [address] [place], [address] ALT [Catalytic activity/Vol] 34 U/L Normal <=46 [facility] Comment on above: Performed By: #### L 3400.5105, L3200.1600, L503.7505, L509.7001 #### [facility] [address] [place], [address] AST [Catalytic activity/Vol] 50 U/L High <=37 [facility] Comment on above: Performed By: #### L 3400.5105, L3200.1600, L503.7505, L509.7001 #### [facility] [address] [place], [address] Bilirubin [Mass/Vol] 0.80 mg/dL Normal 0.00-1.30 [facility] Comment on above: Performed By: #### L 3400.5105, L3200.1600, L503.7505, L509.7001 #### [facility] [address] [place], [address] BUN/CRE 14.1 RATIO Normal 10-20 [facility] Comment on above: Performed By: #### L 3400.5105, L3200.1600, L503.7505, L509.7001 #### [facility] [address] [place], [address] Calcium [Mass/Vol] 9.4 mg/dL Normal 7.6-11.0 [facility] Comment on above: Performed By: #### L 3400.5105, L3200.1600, L503.7505, L509.7001 #### [facility] [address] [place], [address] Chloride [Moles/Vol] 105 mmol/L Normal 98-108 [facility] Comment on above: Performed By: #### L 3400.5105, L3200.1600, L503.7505, L509.7001 #### [facility] [address] [place], [address] CO2 [Moles/Vol] 23.1 mmol/L Normal 21.0-32.0 [facility] Comment on above: Performed By: #### L 3400.5105, L3200.1600, L503.7505, L509.7001 #### [facility] [address] [place] [place], [address] Creatinine [Mass/Vol] 0.72 mg/dL Normal 0.70-1.20 [facility] Comment on above: Performed By: #### L 3400.5105, L3200.1600, L503.7505, L509.7001 #### [facility] [address] [place], [address] ECRCL 93.74 ml/min Normal 50-250 [facility] Comment on above: Performed By: #### L 3400.5105, L3200.1600, L503.7505, L509.7001 #### [facility] [address] [place], [address] GAP 11 Normal 5-15 [facility] Comment on above: Performed By: #### L 3400.5105, L3200.1600, L503.7505, L509.7001 #### [facility] [address] [place], [address] GFR/1.73 sq M.predicted among non-blacks MDRD (S/P/Bld) [Vol rate/Area] 96 mL/min/{1.73_m2} Normal >60 [facility] Comment on above: Result Comment: mL/m in/1.73m2 CKD-EPI Creatinine Equation (2020) Performed By: #### L 3400.5105, L3200.1600, L503.7505, L509.7001 #### [facility] [address] [place], [address] Globulin (S) [Mass/Vol] 3.5 g/dL Normal 2.2-4.2 [facility] Comment on above: Performed By: #### L 3400.5105, L3200.1600, L503.7505, L509.7001 #### [facility] [address] [place], [address] Glucose [Mass/Vol] 95 mg/dL Normal 70-99 [facility] Comment on above: Performed By: #### L 3400.5105, L3200.1600, L503.7505, L509.7001 #### [facility] [address] [place], [address] Potassium [Moles/Vol] 4.7 mmol/L Normal 3.3-5.1 [facility] Comment on above: Performed By: #### L 3400.5105, L3200.1600, L503.7505, L509.7001 #### [facility] [address] [place], [address] Sodium [Moles/Vol] 139 mmol/L Normal 133-145 [facility] Comment on above: Performed By: #### L 3400.5105, L3200.1600, L503.7505, L509.7001 #### [facility] [address] [place], [address] T PROT 7.4 g/dL Normal 5.9-8.4 [facility] Comment on above: Performed By: #### L 3400.5105, L3200.1600, L503.7505, L509.7001 #### [facility] [address] [place], [address] Urea nitrogen [Mass/Vol] 10 mg/dL Normal 4-19 [facility] Comment on above: Performed By: #### L 3400.5105, L3200.1600, L503.7505, L509.7001 #### [facility] [address] [place], [address] Emergency Department Summary on 12-27-2024 Emergency Department Summary [facility] Medical Records Department [address] [place] [address] Emergency Department Summary 12/27/24 MR#: [id number] Acct: [id number] Name: NAZARIO HUTTON Rep #: [id number] : 1950 74 From: Marino Holguin MD [...] similar symptoms: Yes Recent Illness/Hospitalization: No PFSH [facility] Medical History High serum parathyroid hormone (PTH) Heart murmur Elevated alkaline phosphatase level Elevated PSA Diverticulosis AVM (arteriovenous malformation) of colon Vitamin D deficiency Gout Alcohol abuse Essential hypertension Chest pain Anxiety Depression Myocardial infarct Chest pain Acute blood loss anemia Bloody diarrhea Coronary artery disease Atherosclerotic heart disease of citizen [place] coronary artery without angina pectoris ST elevation [place] (STEMI) ( 11/29/21) Hyperlipidemia Hypertension Home Medications [...] disease Hypertension Myocardial infarction age 53 following [place]. Surgical History H/O colonoscopy S/P cataract extraction [...] 13:42 Temp (more content not included)... Normal [facility] Eosinophil percentageOrdered By: Marino Holguin on 12-27-2024 Eosinophils/100 WBC (Bld) 10.8 % High 0-5 [facility] Erythrocyte distribution wid th ratioOrdered By: Marino Holguin on 12-27-2024 Erythrocyte distribution width (RBC) [Ratio] 13.3 % 11.6-14.6 [facility] Erythrocyte distribution wid th standard deviationOrdered By: Marino Holguin on 12-27-2024 Erythrocyte distribution width (RBC) [Ratio] 51.5 fl High 35.1-43.9 [facility] Glomerular filtration rate ( GFR) estimation/1.73 sq m using serum, plasma, or whole bOrdered By: Marino Holguin on 12-27-2024 GFR/1.73 sq M.predicted among non-blacks MDRD (S/P/Bld) [Vol rate/Area] 96 mL/min/{1.73_m2} >60 [facility] Comment on above: mL/min/1.73m2 CKD-EP I Creatinine Equation (2020) Gram stainOrdered By: Marino choudhary on 12-27-2024 Microscopic observation Gram stain Nom (Unsp spec) [facility] H AND P Exam - Hospitaliston 12-27-2024 H&P Exam - Hospitalist [facility] Medical Records Department [address] [place] [address] H P Exam - Hospitalist 12/27/24 1411 MR#: [id number] Acct: [id number] Name: NAZARIO HUTTON Rep #: [id number] : 1950 74 From: Flakita Florentino DO PCP: Dr. Valeriano Beasley MD Status:REG ER Location: ED HPI - General General Date of Admission: 12/27/24 Date of Service: 12/27/24 Chief Complaint: Tongue and lip swelling HPI Narrative NAZARIO HUTTON, is a 74 M who presented to the emergency department at [facility] on 12/27/2024 with tongue and lip swelling. [...] maintained on Solu-Medrol, H2 and H1 blockers. [facility] Medical History High serum parathyroid hormone (PTH) Heart murmur Elevated alkaline phosphatase level Elevated PSA Diverticulosis AVM (arteriovenous malformation) of colon Vitamin D deficiency Gout Alcohol abuse Essential hypertension Chest pain Anxiety Depression Myocardial infarct Chest pain Acute blood loss anemia Bloody diarrhea Coronary artery disease Atherosclerotic heart disease of citizen [place] coronary artery without angina pectoris ST elevation [place] (STEMI) ( 11/29/21) Hyperlipidemia Hypertension Home Medications [...] disease Hypertension Myocardial infarction age 53 following [place]. Surgical History H/O colonoscopy S/P cataract extraction [...] 85 Resp (more content not included)... Normal [facility] Hematocrit Auto (Bld) [Volum e fraction]Ordered By: Marino Holguin on 12-27-2024 Hematocrit (Bld) [Volume fraction] 40.9 % 40-54 [facility] Hemoglobin measurementOrdere d By: Marino Holguin on 12-27-2024 Hemoglobin (Bld) [Mass/Vol] 14.1 g/dL 13.0-16.5 [facility] Immature granulocytes/100 WB C Auto (Bld)Ordered By: Marino Holguin on 12-27-2024 Immature granulocytes/100 WBC (Bld) 0.300 % 0.0-0.9 [facility] Comment on above: IG% - Immature Granu locytes (promyelocytes, myelocytes and metamyelocytes) > 1% indicates that a LEFT SHIFT is Present. Laboratory - Chemistry and C hemistry - challengeOrdered By: Marino Holguin on 12-27-2024 AST [Catalytic activity/Vol] 50 U/L High <38 [facility] MCV (mean corpuscular volume ) determinationOrdered By: Marino Holguin on 12-27-2024 MCV (RBC) [Entitic vol] 103.5 fL High 80-94 [facility] Mean corpuscular hemoglobin (MCH) determinationOrdered By: Marinophilippe Holguin on 12-27-2024 MCH (RBC) [Entitic mass] 35.7 pg High 27.0-32.0 [facility] Mean corpuscular hemoglobin concentration (MCHC) determinationOrdered By: Marino Holguin on 12-27-2024 MCHC (RBC) [Mass/Vol] 34.5 g/dL 32-36 [facility] Mean platelet volume determi nationOrdered By: Marino Holguin on 12-27-2024 Platelet mean volume (Bld) [Entitic vol] 9.7 fL 6.2-12.0 [facility] Measurement, pHOrdered By: Michael Holguin on 12-27-2024 pH (Unsp spec) 7.43 [pH] 7.35-7.45 [facility] Microbial respiratory cultur eOrdered By: Marino Holguin on 12-27-2024 Microorganism identified Cx Nom (Unsp spec) or Staphylococcus aureus isolated. [facility] Monocyte percentageOrdered B y: Marino Holguin on 12-27-2024 Monocytes/100 WBC (Bld) 11.2 % High 0-10 [facility] Neutrophil percentageOrdered By: Marinophilippe Holguin on 12-27-2024 Neutrophils/100 WBC (Bld) 67.1 % 47-70 [facility] No Panel InformationOrdered By: Marino Holguin on 12-27-2024 Bedside Blood Gas PEEP 5 [facility] Blood Gas Respiration Rate 14 [facility] Blood Gas Sample Site L Radial [facility] Blood Gas Specimen Type ART [facility] Blood Gas Tidal Volume 500.0 mL [facility] Blood Gas Vent Mode AC [facility] er [facility] Oxygen Delivery Device Adult Vent [facility] Nucleated red blood cell per centageOrdered By: Marino Holguin on 12-27-2024 Nucleated RBC/100 WBC (Bld) [Ratio] 0 % 0-5 [facility] Platelet countOrdered By: Jake Holguin on 12-27-2024 Platelets (Bld) [#/Vol] 200 10*3/uL 150-450 [facility] Potassium measurement (mass/ volume)Ordered By: Marino Holguin on 12-27-2024 Potassium (Unsp spec) [Mass/Vol] 4.7 mmol/L 3.3-5.1 [facility] RBC Auto (Bld) [#/Vol]Ordere d By: Marino Holguin on 12-27-2024 RBC (Bld) [#/Vol] 3.95 10*6/uL Low 4.6-6.2 [facility] Serum creatinine measurement (mass/volume)Ordered By: Marino Holguin on 12-27-2024 Creatinine [Mass/Vol] 0.72 mg/dL 0.70-1.20 [facility] Serum globulin measurementOr dered By: Marino Holguin 12-27-2024 Globulin (S) [Mass/Vol] 3.5 g/dL 2.2-4.2 [facility] Serum glucose measurement (m ass/volume)Ordered By: Marino Holguin 12-27-2024 Glucose [Mass/Vol] 95 mg/dL 70-99 [facility] Serum or plasma alanine guevara otransferase (ALT) measurementOrdered By: Marino Holguin 12-27-2024 ALT [Catalytic activity/Vol] 34 U/L <47 [facility] Serum or plasma albumin reid urement (mass/volume)Ordered By: Marino Holguin on 12-27-2024 Albumin [Mass/Vol] 4.0 g/dL 3.4-4.8 [facility] Serum or plasma albumin/glob ulin mass ratioOrdered By: Marinophilippe Holguin on 12-27-2024 Albumin/Globulin [Mass ratio] 1.1 {ratio} 0.9-2.4 [facility] Serum or plasma alkaline adelfo sphatase measurementOrdered By: Marinophilippe Holguin on 06-06-2025 ALP [Catalytic activity/Vol] 151 U/L High 40-129 [facility] Serum or plasma calcium reid urement (mass/volume)Ordered By: Marino Holguin on 12-27-2024 Calcium [Mass/Vol] 9.4 mg/dL 7.6-11.0 [facility] Serum or plasma creatine kin ase activityOrdered By: Marinophilippe Holguin on 12-27-2024 CK [Catalytic activity/Vol] 120 U/L 24-195 [facility] Serum or plasma functional c omplement C1 esterase inhibitor detectionOrdered By: Marino Holguin on 12-27-2024 Complement C1 esterase inhibitor.functional Ql 102 . [facility] Comment on above: Result Units: %mean normal Abnormal <41 Equivocal 41 - 67 Normal >67Performed at: [facility] [id number] Director: Zafar Browne MD, Phone: [phone] Serum or plasma urea nitroge n measurement (mass/volume)Ordered By: Marino Holguin on 12-27-2024 Urea nitrogen [Mass/Vol] 10 mg/dL 4-19 [facility] Sodium levelOrdered By: Marinophilippe Holguin on 12-27-2024 Sodium [Moles/Vol] 139 mmol/L 133-145 [facility] Total carbon dioxide measure mentOrdered By: Marino Holguin on 12-27-2024 CO2 [Moles/Vol] 26 mmol/L [facility] Total proteinOrdered By: Marino Holguin on 12-27-2024 Protein [Mass/Vol] 7.4 g/dL 5.9-8.4 [facility] Triglycerideson 12-27-2024 Triglyceride [Mass/Vol] 131 mg/dL Normal [facility] Comment on above: Order Comment: Comme nts: DC when propofol is d/c'dDC when propofol is d/c'd Result Comment: The drugs N-Acetylcysteine and Metamizole may falsely depress this assay. Normal range: <150 mg/dL Borderline High: 150-199 mg/dL High: 200-499 mg/dL Very High: >500 mg/dL Performed By: #### L 9000.0800 #### [facility] [address] [place], [address] Triglycerides measurementOrd ered By: Marino Holguin on 12-27-2024 Triglyceride [Mass/Vol] 131 mg/dL <199 [facility] Comment on above: The drugs N-Acetylcy steine and Metamizole may falsely depress this assay. Normal range: <150 mg/dLBorderline High: 150-199 mg/dLHigh: 200-499 mg/dLVery High: >500 mg/dL White blood cell (WBC) count Ordered By: Marino Holguin on 12-27-2024 WBC (Bld) [#/Vol] 7.5 10*3/uL 4.4-11.0 [facility] CNOVon 12-23-2024 CNOV Office Visit (JOSE JUAN ) -- NAZARIO HUTTON ([id number]) 1950 M Date Time Provider Department 12/23/24 [...] (AI) Davin (more content not included)... 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 [facility] Adoles[facility] Trans[facility] Date/Time: Nov 07 2024 5:22A Dictated by : LESTER LOPES MD This examination was interpreted and the report reviewed and electronically signed by: LESTER LOPES MD on Nov 07 2024 5:23AM EST [facility] US Abdominal Aorta for michael Strattonered By: [facility]cf Provider on 11-07-2024 [facility] US Abdominal Aorta for michael erickson 11-06-2024 Radiology Study observation (narrative) [facility] US SCREENING AAAon US SCREENING AAA * * *Final Report* * * DATE OF EXAM: Nov 06 2024 11:52AM [facility] 1028 - US SCREENING AAA / PROCEDURE [...] 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 Child And Adolescent Therapist: DULCE Transcribe Date/Time: Nov 07 2024 5:22A Dictated by : LESTER LOPES MD This examination was interpreted and the report reviewed and electronically signed by: LESTER LOPES MD on Nov 07 2024 5:23AM EST [id number] Normal [facility] Absolute lymphocyte countOrd ered By: Shubham Blanco on 11-05-2024 Lymphocytes Auto (Unsp spec) [#/Vol] 0.68 10*3/uL Low 0.83-4.51 [facility] Absolute neutrophil countOrd ered By: Shubham Blanco on 11-05-2024 Neutrophils (Bld) [#/Vol] 5.6 10*3/uL 2.0-7.7 [facility] Ammoniaon 11-05-2024 Ammonia (P) [Moles/Vol] 35.6 umol/L Normal 16-60 [facility] Comment on above: Performed By: #### L 3400.5105, L3200.1600, L503.7505, L509.7001 #### [facility] [address] [place], [address] Anion gap in Serum or Plasma Ordered By: Shubham Blanco on 11-05-2024 Anion gap [Moles/Vol] 11 mmol/L -15 [facility] Automated lymphocyte count a s percentage of total leukocytesOrdered By: Shubham Blanco on 11-05-2024 Lymphocytes/100 WBC Auto (Unsp spec) 8.4 % Low 19-41 [facility] BUN/creatinine ratioOrdered By: Shubham Blanco on 11-05-2024 Urea nitrogen/Creatinine [Mass ratio] 19.6 mg/mg 10-20 [facility] Basophil percentageOrdered B y: Shubham Blanco on 11-05-2024 Basophils/100 WBC (Bld) 0.4 % 0-1 [facility] Bilirubin, totalOrdered By: Shubham Blanco on 11-05-2024 Bilirubin [Mass/Vol] 0.89 mg/dL 0.00-1.30 [facility] CBC W/Diff, Automatedon 10-22 Absolute Lymph 0.68 X10 3/uL Low 0.83-4.51 [facility] Comment on above: Performed By: #### L 3400.5105, L3200.1600, L503.7505, L509.7001 #### [facility] [address] [place], [address] Absolute Neut 5.6 X10 3/uL Normal 2.0-7.7 [facility] Comment on above: Performed By: #### L 3400.5105, L3200.1600, L503.7505, L509.7001 #### [facility] [address] [place], [address] Basophils/100 WBC (Bld) 0.4 % Normal 0-1 [facility] Comment on above: Performed By: #### L 3400.5105, L3200.1600, L503.7505, L509.7001 #### [facility] [address] [place], [address] Eosinophils/100 WBC (Bld) 7.3 % High 0-5 [facility] Comment on above: Performed By: #### L 3400.5105, L3200.1600, L503.7505, L509.7001 #### [facility] [address] [place], [address] Erythrocyte distribution width (RBC) [Ratio] 13.6 % Normal 11.6-14.6 [facility] Comment on above: Performed By: #### L 3400.5105, L3200.1600, L503.7505, L509.7001 #### [facility] [address] [place], [address] Hematocrit (Bld) [Volume fraction] 37.7 % Low 40-54 [facility] Comment on above: Performed By: #### L 3400.5105, L3200.1600, L503.7505, L509.7001 #### [facility] [address] [place], [address] Hemoglobin (Bld) [Mass/Vol] 13.2 g/dL Normal 13.0-16.5 [facility] Comment on above: Performed By: #### L 3400.5105, L3200.1600, L503.7505, L509.7001 #### [facility] [address] [place], [address] IG% 0.100 Normal 0.0-0.9 [facility] Comment on above: Result Comment: IG% - Immature Granulocytes (promyelocytes, myelocytes and metamyelocytes) > 1% indicates that a LEFT SHIFT is Present. Performed By: #### L 3400.5105, L3200.1600, L503.7505, L509.7001 #### [facility] [address] [place], [address] Lymphocytes/100 WBC (Bld) 8.4 % Low 19-41 [facility] Comment on above: Performed By: #### L 3400.5105, L3200.1600, L503.7505, L509.7001 #### [facility] [address] [place], [address] MCH (RBC) [Entitic mass] 35.3 pg High 27.0-32.0 [facility] Comment on above: Performed By: #### L 3400.5105, L3200.1600, L503.7505, L509.7001 #### [facility] [address] [place], [address] MCHC (RBC) [Mass/Vol] 35.0 g/dL Normal 32-36 [facility] Comment on above: Performed By: #### L 3400.5105, L3200.1600, L503.7505, L509.7001 #### [facility] [address] [place], [address] MCV (RBC) [Entitic vol] 100.8 fL High 80-94 [facility] Comment on above: Performed By: #### L 3400.5105, L3200.1600, L503.7505, L509.7001 #### [facility] [address] [place], [address] Monocytes/100 WBC (Bld) 15.3 % High 0-10 [facility] Comment on above: Performed By: #### L 3400.5105, L3200.1600, L503.7505, L509.7001 #### [facility] [address] [place], [address] Neutrophils/100 WBC (Bld) 68.5 % Normal 47-70 [facility] Comment on above: Performed By: #### L 3400.5105, L3200.1600, L503.7505, L509.7001 #### [facility] [address] [place], [address] Nucleated RBC (Bld) [#/Vol] 0 10*3/uL Normal 0-5 [facility] Comment on above: Performed By: #### L 3400.5105, L3200.1600, L503.7505, L509.7001 #### [facility] [address] [place], [address] Platelet mean volume (Bld) [Entitic vol] 9.7 fL Normal 6.2-12.0 [facility] Comment on above: Performed By: #### L 3400.5105, L3200.1600, L503.7505, L509.7001 #### [facility] [address] [place], [address] Platelets (Bld) [#/Vol] 239 10*3/uL Normal 150-450 [facility] Comment on above: Performed By: #### L 3400.5105, L3200.1600, L503.7505, L509.7001 #### [facility] [address] [place], [address] RBC (Bld) [#/Vol] 3.74 10*6/uL Low 4.6-6.2 [facility] Comment on above: Performed By: #### L 3400.5105, L3200.1600, L503.7505, L509.7001 #### [facility] [address] [place], [address] RDW SD 50.2 fl High 35.1-43.9 [facility] Comment on above: Performed By: #### L 3400.5105, L3200.1600, L503.7505, L509.7001 #### [facility] [address] [place], [address] WBC (Bld) [#/Vol] 8.1 10*3/uL Normal 4.4-11.0 [facility] Comment on above: Performed By: #### L 3400.5105, L3200.1600, L503.7505, L509.7001 #### [facility] [address] [place], [address] CRPon 11-05-2024 C-REACTIVE PROT 6.19 mg/L High 0.0-3.0 [facility] Comment on above: Performed By: #### L 3400.5105, L3200.1600, L503.7505, L509.7001 #### [facility] [address] [place], [address] CRP [Mass/Vol]Ordered By: Tessa Blanco on 11-05-2024 C-Reactive Protein Extended Range 6.19 mg/L High 0.0-3.0 [facility] Calculated very low density lipoprotein (VLDL) cholesterol measurementOrdered By: Shubham Blanco on 11-05-2024 Calculated very low density lipoprotein (VLDL) cholesterol measurement 19 mg/dL [facility] VLDL Cholesterol 19 mg/dL [facility] Carbon dioxide, total [Moles /volume] in Central venous bloodOrdered By: Shubham Blanco on 11-05-2024 CO2 [Moles/Vol] 21.0 mmol/L 21.0-32.0 [facility] Cardiology Visit Reporton Cardiology Visit Report [facility] [address] [place] [address] OFFICE VISIT Date of Service: 11/05/24 MR#: [id number] Acct: [id number] Name: NAZARIO HUTTON Rep #: [id number] : 1950 Provider: FAUSTO moore Age/Sex: 74/M Location: [facility] Status: Signed HPI HPI History of [...] losartan was discontinued. He has seen an linseed oil press tender. From a cardiac standpoint, the patient is [...] 95 Intake Visit Reasons: 6 M FU Counter Checker Required: No Is patient in pain?: No [...] you fallen in the past year?: No [facility] Medical History High serum parathyroid hormone (PTH) Heart murmur Elevated alkaline phosphatase level Elevated PSA Diverticulosis AVM (arteriovenous malformation) of colon Vitamin D deficiency Gout Alcohol abuse Essential hypertension Chest pain Anxiety Depression Myocardial infarct Chest pain Acute blood loss anemia Bloody diarrhea Coronary artery disease Atherosclerotic heart disease of citizen [place] coronary artery without angina pectoris ST elevation [place] (STEMI) ( 11/29/21) Hyperlipidemia Hypertension Surgical History H/O colonoscopy (more content not included)... Normal [facility] Chloride assayOrdered By: Tessa Blanco on 11-05-2024 Chloride [Moles/Vol] 104 mmol/L 98-108 [facility] Comprehensive Metabolic Prof ilon 11-05-2024 Albumin [Mass/Vol] 4.1 g/dL Normal 3.4-4.8 [facility] Comment on above: Performed By: #### L 3400.5105, L3200.1600, L503.7505, L509.7001 #### [facility] [address] [place], [address] Albumin/Globulin [Mass ratio] 1.2 {ratio} Normal 0.9-2.4 [facility] Comment on above: Performed By: #### L 3400.5105, L3200.1600, L503.7505, L509.7001 #### [facility] [address] [place], [address] ALK PHOS 141 U/L High 40-129 [facility] Comment on above: Performed By: #### L 3400.5105, L3200.1600, L503.7505, L509.7001 #### [facility] [address] [place], [address] ALT [Catalytic activity/Vol] 32 U/L Normal <=46 [facility] Comment on above: Performed By: #### L 3400.5105, L3200.1600, L503.7505, L509.7001 #### [facility] [address] [place], [address] AST [Catalytic activity/Vol] 41 U/L High <=37 [facility] Comment on above: Performed By: #### L 3400.5105, L3200.1600, L503.7505, L509.7001 #### [facility] [address] [place], [address] Bilirubin [Mass/Vol] 0.89 mg/dL Normal 0.00-1.30 [facility] Comment on above: Performed By: #### L 3400.5105, L3200.1600, L503.7505, L509.7001 #### [facility] [address] [place], [address] BUN/CRE 19.6 RATIO Normal 10-20 [facility] Comment on above: Performed By: #### L 3400.5105, L3200.1600, L503.7505, L509.7001 #### [facility] [address] [place], [address] Calcium [Mass/Vol] 9.8 mg/dL Normal 7.6-11.0 [facility] Comment on above: Performed By: #### L 3400.5105, L3200.1600, L503.7505, L509.7001 #### [facility] [address] [place], [address] Chloride [Moles/Vol] 104 mmol/L Normal 98-108 [facility] Comment on above: Performed By: #### L 3400.5105, L3200.1600, L503.7505, L509.7001 #### [facility] [address] [place], [address] CO2 [Moles/Vol] 21.0 mmol/L Normal 21.0-32.0 [facility] Comment on above: Performed By: #### L 3400.5105, L3200.1600, L503.7505, L509.7001 #### [facility] [address] [place], [address] Creatinine [Mass/Vol] 0.80 mg/dL Normal 0.70-1.20 [facility] Comment on above: Performed By: #### L 3400.5105, L3200.1600, L503.7505, L509.7001 #### [facility] [address] [place], [address] GAP 11 Normal 5-15 [facility] Comment on above: Performed By: #### L 3400.5105, L3200.1600, L503.7505, L509.7001 #### [facility] [address] [place], [address] GFR/1.73 sq M.predicted among non-blacks MDRD (S/P/Bld) [Vol rate/Area] 93 mL/min/{1.73_m2} Normal >60 [facility] Comment on above: Result Comment: mL/m in/1.73m2 CKD-EPI Creatinine Equation (2020) Performed By: #### L 3400.5105, L3200.1600, L503.7505, L509.7001 #### [facility] [address] [place], [address] Globulin (S) [Mass/Vol] 3.4 g/dL Normal 2.2-4.2 [facility] Comment on above: Performed By: #### L 3400.5105, L3200.1600, L503.7505, L509.7001 #### [facility] [address] [place], [address] Glucose [Mass/Vol] 95 mg/dL Normal 70-99 [facility] Comment on above: Performed By: #### L 3400.5105, L3200.1600, L503.7505, L509.7001 #### [facility] [address] [place], [address] Potassium [Moles/Vol] 5.0 mmol/L Normal 3.3-5.1 [facility] Comment on above: Performed By: #### L 3400.5105, L3200.1600, L503.7505, L509.7001 #### [facility] [address] [place], [address] Sodium [Moles/Vol] 136 mmol/L Normal 133-145 [facility] Comment on above: Performed By: #### L 3400.5105, L3200.1600, L503.7505, L509.7001 #### [facility] [address] [place], [address] T PROT 7.4 g/dL Normal 5.9-8.4 [facility] Comment on above: Performed By: #### L 3400.5105, L3200.1600, L503.7505, L509.7001 #### [facility] [address] [place], [address] Urea nitrogen [Mass/Vol] 16 mg/dL Normal 4-19 [facility] Comment on above: Performed By: #### L 3400.5105, L3200.1600, L503.7505, L509.7001 #### [facility] [address] [place], [place], [id number] Eosinophil percentageOrdered By: Shubham Blanco on 11-05-2024 Eosinophils/100 WBC (Bld) 7.3 % High 0-5 [facility] Erythrocyte distribution wid th (RBC) [Ratio]Ordered By: Shubham Blanco on 11-05-2024 Erythrocyte distribution width (RBC) [Entitic vol] 50.2 fL High 35.1-43.9 [facility] Erythrocyte distribution wid th ratioOrdered By: Shubham Blanco on 11-05-2024 Erythrocyte distribution width (RBC) [Ratio] 13.6 % 11.6-14.6 [facility] Erythrocyte distribution wid th standard deviationOrdered By: Shubham Blanco on 11-05-2024 Erythrocyte distribution width (RBC) [Ratio] 50.2 fl High 35.1-43.9 [facility] GFR/1.73 sq M.predicted judson g non-blacks MDRD (S/P/Bld) [Vol rate/Area]Ordered By: Shubham Blanco on 11-05-2024 Estimated GFR (MDRD) Non-Af Amer 93 >60 [facility] Comment on above: mL/min/1.73m2 CKD-EP I Creatinine Equation (2020) Glomerular filtration rate ( GFR) estimation/1.73 sq m using serum, plasma, or whole bOrdered By: Shubham Blanco on 11-05-2024 GFR/1.73 sq M.predicted among non-blacks MDRD (S/P/Bld) [Vol rate/Area] 93 mL/min/{1.73_m2} >60 [facility] Comment on above: mL/min/1.73m2 CKD-EP I Creatinine Equation (2020) Hematocrit Auto (Bld) [Volum e fraction]Ordered By: Shubham Blanco on 11-05-2024 Hematocrit (Bld) [Volume fraction] 37.7 % Low 40-54 [facility] Hemoglobin measurementOrdere d By: Shubham Blanco on 11-05-2024 Hemoglobin (Bld) [Mass/Vol] 13.2 g/dL 13.0-16.5 [facility] Immature granulocytes/100 WB C Auto (Bld)Ordered By: Shubham Blanco on 11-05-2024 Immature granulocytes/100 WBC (Bld) 0.100 % 0.0-0.9 [facility] Comment on above: IG% - Immature Granu locytes (promyelocytes, myelocytes and metamyelocytes) > 1% indicates that a LEFT SHIFT is Present. International normalized rat io (INR) calculationOrdered By: Shubham Blanco on 11-05-2024 INR Coag (Bld) [Relative time] 1.0 {INR} [facility] LDL calc ser/plasOrdered By: Shubham Blanco on 11-05-2024 Cholesterol in LDL [Mass/Vol] 85 mg/dL [facility] Comment on above: Bzivogytbh=221-227 m g/dL & Higher Mfbp=676 mg/dL or greater LDL Cholesterol, Calculated 85 mg/dL [facility] Comment on above: Nlnwdkeugz=920-023 m g/dL & Higher Grgs=555 mg/dL or greater Laboratory - Chemistry and C hemistry - challengeOrdered By: Shubham Blanco on 11-05-2024 AST [Catalytic activity/Vol] 41 U/L High <38 [facility] Lipid Profileon 11-05-2024 CHOL:HDL 2.92 Normal [facility] Comment on above: Performed By: #### L 3400.5105, L3200.1600, L503.7505, L509.7001 #### [facility] [address] [facility] [place], [place], [id number] Cholesterol [Mass/Vol] 158 mg/dL Normal <=200 [facility] Comment on above: Result Comment: Chol esterol level, Desirable <200 mg/dL Borderline high cholesterol 200-239 mg/dL High cholesterol >=240 mg/dL Recommendations of the NCEP Adult Treatment Panel for the following risk-cutoff thresholds for the [place] population. Performed By: #### L 3400.5105, L3200.1600, L503.7505, L509.7001 #### [facility] [address] [place], [place], [address] Cholesterol in HDL [Mass/Vol] 54 mg/dL Normal [facility] Comment on above: Result Comment: Jayleen onal Cholesterol Education Program (NCEP) guidelines: <40 mg/dL: Low HDL-cholesterol (major risk factor for CHD) >= 60 mg/dL: High HDL-cholesterol (negative risk factor for CHD) HDL-cholesterol is affected by a number of factors, e.g. smoking, exercise, hormones, sex and age. Performed By: #### L 3400.5105, L3200.1600, L503.7505, L509.7001 #### [facility] [address] [place], [address] Cholesterol in LDL [Mass/Vol] 85 mg/dL Normal [facility] Comment on above: Result Comment: Bord yfzizh=017-440 mg/dL Higher Nzjr=869 mg/dL or greater Performed By: #### L 3400.5105, L3200.1600, L503.7505, L509.7001 #### [facility] [address] [place], [address] Cholesterol in VLDL [Mass/Vol] 19 mg/dL Normal 5-40 [facility] Comment on above: Performed By: #### L 3400.5105, L3200.1600, L503.7505, L509.7001 #### [facility] [address] [place], [address] Triglyceride [Mass/Vol] 94 mg/dL Normal [facility] Comment on above: Result Comment: The drugs N-Acetylcysteine and Metamizole may falsely depress this assay. Normal range: <150 mg/dL Borderline High: 150-199 mg/dL High: 200-499 mg/dL Very High: >500 mg/dL Performed By: #### L 3400.5105, L3200.1600, L503.7505, L509.7001 #### [facility] [address] [place], [address] Lymphocytes Auto (Unsp spec) [#/Vol]Ordered By: Shubham Blanco on 11-05-2024 Lymphocytes (Bld) [#/Vol] 0.68 10*3/uL Low 0.83-4.51 [facility] Lymphocytes/100 WBC Auto (Un sp spec)Ordered By: Shubham Blanco on 11-05-2024 Lymphocytes/100 WBC (Bld) 8.4 % Low 19-41 [facility] MCV (mean corpuscular volume ) determinationOrdered By: Shubham Blanco on 11-05-2024 MCV (RBC) [Entitic vol] 100.8 fL High 80-94 [facility] Mean corpuscular hemoglobin (MCH) determinationOrdered By: Shubham Blanco on 11-05-2024 MCH (RBC) [Entitic mass] 35.3 pg High 27.0-32.0 [facility] Mean corpuscular hemoglobin concentration (MCHC) determinationOrdered By: Shubham Blanco on 11-05-2024 MCHC (RBC) [Mass/Vol] 35.0 g/dL 32-36 [facility] Mean platelet volume determi nationOrdered By: Shubham Blanco on 11-05-2024 Platelet mean volume (Bld) [Entitic vol] 9.7 fL 6.2-12.0 [facility] Monocyte percentageOrdered B y: Shubham Blanco on 11-05-2024 Monocytes/100 WBC (Bld) 15.3 % High 0-10 [facility] Neutrophil percentageOrdered By: Shubham Blanco on 11-05-2024 Neutrophils/100 WBC (Bld) 68.5 % 47-70 [facility] Nucleated red blood cell per centageOrdered By: Shubham Blanco on 11-05-2024 Nucleated RBC/100 WBC (Bld) [Ratio] 0 % 0-5 [facility] Platelet countOrdered By: Tessa Blanco on 11-05-2024 Platelets (Bld) [#/Vol] 239 10*3/uL 150-450 [facility] Potassium (Unsp spec) [Mass/ Vol]Ordered By: Shubham Blanco on 11-05-2024 Potassium [Moles/Vol] 5.0 mmol/L 3.3-5.1 [facility] Potassium measurement (mass/ volume)Ordered By: Shubham Blanco on 11-05-2024 Potassium (Unsp spec) [Mass/Vol] 5.0 mmol/L 3.3-5.1 [facility] Prothrombin Time w/INRon INR Coag (PPP) [Relative time] 1.0 {INR} Normal [facility] Comment on above: Performed By: #### L 3400.5105, L3200.1600, L503.7505, L509.7001 #### [facility] [address] [place], [address] PT Coag (PPP) [Time] 13.7 s Normal 11.7-14.9 [facility] Comment on above: Performed By: #### L 3400.5105, L3200.1600, L503.7505, L509.7001 #### [facility] [address] [place], [address] Prothrombin timeOrdered By: Shubham Blanco on 11-05-2024 PT Coag (PPP) [Time] 13.7 s 11.7-14.9 [facility] RBC Auto (Bld) [#/Vol]Ordere d By: Shubham Blanco on 11-05-2024 RBC (Bld) [#/Vol] 3.74 10*6/uL Low 4.6-6.2 [facility] Screening total cholesterol/ high density lipoprotein (HDL) cholesterol ratioOrdered By: Shubham Blanco on 11-05-2024 Cholesterol.total/Cho lesterol in HDL [Mass ratio] 2.92 {ratio} [facility] Serum creatinine measurement (mass/volume)Ordered By: Shubham Blanco on 11-05-2024 Creatinine [Mass/Vol] 0.80 mg/dL 0.70-1.20 [facility] Serum globulin measurementOr dered By: Shubham Blanco on 11-05-2024 Globulin (S) [Mass/Vol] 3.4 g/dL 2.2-4.2 [facility] Serum glucose measurement (m ass/volume)Ordered By: Shubham Blanco on 11-05-2024 Glucose [Mass/Vol] 95 mg/dL 70-99 [facility] Serum or plasma C reactive p rotein measurement (mass/volume)Ordered By: Shubham Blanco on 11-05-2024 CRP [Mass/Vol] 6.19 mg/L High 0.0-3.0 [facility] Serum or plasma alanine guevara otransferase (ALT) measurementOrdered By: Shubham Blanco on 11-05-2024 ALT [Catalytic activity/Vol] 32 U/L <47 [facility] Serum or plasma albumin reid urement (mass/volume)Ordered By: Shubham Blanco on 11-05-2024 Albumin [Mass/Vol] 4.1 g/dL 3.4-4.8 [facility] Serum or plasma albumin/glob ulin mass ratioOrdered By: Shubham Blanco on 11-05-2024 Albumin/Globulin [Mass ratio] 1.2 {ratio} 0.9-2.4 [facility] Serum or plasma alkaline adelfo sphatase measurementOrdered By: Shubham Blanco 11-05-2024 ALP [Catalytic activity/Vol] 141 U/L High 40-129 [facility] Serum or plasma calcium reid urement (mass/volume)Ordered By: Shubham Blanco 11-05-2024 Calcium [Mass/Vol] 9.8 mg/dL 7.6-11.0 [facility] Serum or plasma cholesterol in HDL measurement (mass/volume)Ordered By: Shubham Blanco on 11-05-2024 Cholesterol in HDL [Mass/Vol] 54 mg/dL >40 [facility] Comment on above: National Cholesterol Education Program (NCEP) guidelines:<40 mg/dL: Low HDL-cholesterol (major risk factor for CHD)>= 60 mg/dL: High HDL-cholesterol (negative risk factor for CHD)HDL-cholesterol is affected by a number of factors, e.g. smoking, exercise, hormones, sex and age. Serum or plasma cholesterol measurement (mass/volume)Ordered By: Shubham Blanco 11-05-2024 Cholesterol [Mass/Vol] 158 mg/dL <201 [facility] Comment on above: Cholesterol level, D esirable <200 mg/dLBorderline high cholesterol 200-239 mg/dLHigh cholesterol >=240 mg/dLRecommendations of the NCEP Adult Treatment Panel for the following risk-cutoff thresholds for the [place] population. Serum or plasma urea nitroge n measurement (mass/volume)Ordered By: Shubham Blanco on 11-05-2024 Urea nitrogen [Mass/Vol] 16 mg/dL 4-19 [facility] Sodium levelOrdered By: Nilda Blanco on 11-05-2024 Sodium [Moles/Vol] 136 mmol/L 133-145 [facility] Total proteinOrdered By: Gennaro Blanco on 11-05-2024 Protein [Mass/Vol] 7.4 g/dL 5.9-8.4 [facility] Triglycerides measurementOrd ered By: Shubham Blanco on 11-05-2024 Triglyceride [Mass/Vol] 94 mg/dL <199 [facility] Comment on above: The drugs N-Acetylcy steine and Metamizole may falsely depress this assay. 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 Normal [facility] 25(OH)D3 SerPl-ncon 2024 25-hydroxyvitamin D3 [Mass/Vol] 38.5 ng/mL Normal 31.0-80.0 [facility] Comment on above: Order Comment: Speci men Type: BLOOD SPECIMEN Ordering Facility: [facility] Address: [address] [place] [address] Result Comment: Clas sification of 25 [place] Vitamin D status: Deficiency/Insufficiency: < or = 30 ng/ml. Sufficiency/Optimal Levels: 31-80 ng/mL Toxicity: > 100 ng/mL. Test performed by chemiluminescent immunoassay. Performed By: #### 2 2314-9, 5195-3, 02211-1 #### [facility] CLIA [id number] [address] [place] [address] [place] C3 SerPl-mCncon 10-30-2024 Complement C3 [Mass/Vol] 173 mg/dL High 86-166 [facility] Comment on above: Order Comment: Speci men Type: BLOOD SPECIMENOrdering Facility: [facility] Address: [address] [place] [address] Performed By: #### 1 988-5, 4486-9, 4498-2, 2132-03 ####[facility] [id number] [place] [address] [place] C4 SerPl-mCncon 10-30-2024 Complement C4 [Mass/Vol] 32 mg/dL Normal 13-46 [facility] Comment on above: Order Comment: Speci men Type: BLOOD SPECIMENOrdering Facility: [facility] Address: [address] [place] [address] Performed By: #### 1 988-5, 4485-9, 4498-2, 2132-03 ####[facility] [id number] [place] [address] [place] CBC W Auto Differential pane l (Bld)on 10-30-2024 Basophils (Bld) [#/Vol] 0.05 10*3/uL Normal <0.11 [facility] Comment on above: Order Comment: Speci men Type: BLOOD SPECIMEN Ordering Facility: [facility] Address: [address] [place] [address] Performed By: #### C OPPER #### [facility] CLIA [id number] [address] [place] [address] [place] Basophils/100 WBC (Bld) 0.8 % Normal [facility] Comment on above: Order Comment: Speci men Type: BLOOD SPECIMEN Ordering Facility: [facility] Address: [address] [place] [address] Performed By: #### C OPPER #### [facility] CLIA [id number] [address] [place] [address] [place] Differential cell count method Nom (Bld) Auto Normal [facility] Comment on above: Order Comment: Speci men Type: BLOOD SPECIMEN Ordering Facility: [facility] Address: [address] [place] [address] Performed By: #### C OPPER #### [facility] CLIA [id number] [address] [place] [address] [place] Eosinophils (Bld) [#/Vol] 0.46 10*3/uL High <0.46 [facility] Comment on above: Order Comment: Speci men Type: BLOOD SPECIMEN Ordering Facility: [facility] Address: [address] [place] [address] Performed By: #### C OPPER #### [facility] CLIA [id number] [address] [place] [address] [place] Eosinophils/100 WBC (Bld) 7.0 % Normal [facility] Comment on above: Order Comment: Speci men Type: BLOOD SPECIMEN Ordering Facility: [facility] Address: [address] [place] [address] Performed By: #### C OPPER #### [facility] CLIA [id number] [address] [place] [address] [place] Erythrocyte distribution width (RBC) [Ratio] 13.5 % Normal 11.5-15.0 [facility] Comment on above: Order Comment: Speci men Type: BLOOD SPECIMEN Ordering Facility: [facility] Address: [address] [place] [address] Performed By: #### C OPPER #### [facility] CLIA [id number] [address] [place] [address] [place] Hematocrit (Bld) [Volume fraction] 41.9 % Normal 39.0-51.0 [facility] Comment on above: Order Comment: Speci men Type: BLOOD SPECIMEN Ordering Facility: [facility] Address: [address] [place] [address] Performed By: #### C OPPER #### [facility] CLIA [id number] [address] [place] [address] [place] Hemoglobin (Bld) [Mass/Vol] 14.0 g/dL Normal 13.0-17.0 [facility] Comment on above: Order Comment: Speci men Type: BLOOD SPECIMEN Ordering Facility: [facility] Address: [address] [place] [address] Performed By: #### C OPPER #### [facility] CLIA [id number] [address] [place] [address] [place] Immature granulocytes (Bld) [#/Vol] 10*3/uL Normal <0.10 [facility] Comment on above: Order Comment: Speci men Type: BLOOD SPECIMEN Ordering Facility: [facility] Address: [address] [place] [address] Performed By: #### C OPPER #### [facility] CLIA [id number] [address] [place] [address] [place] Immature granulocytes/100 WBC (Bld) 0.3 % Normal [facility] Comment on above: Order Comment: Speci men Type: BLOOD SPECIMEN Ordering Facility: [facility] Address: [address] [place] [address] Performed By: #### C OPPER #### [facility] CLIA [id number] [address] [place] [address] [place] Lymphocytes (Bld) [#/Vol] 0.59 10*3/uL Low 1.00-4.00 [facility] Comment on above: Order Comment: Speci men Type: BLOOD SPECIMEN Ordering Facility: [facility] Address: [address] [place] [address] Performed By: #### C OPPER #### [facility] CLIA [id number] [address] [place] [address] [place] Lymphocytes/100 WBC (Bld) 9.0 % Normal [facility] Comment on above: Order Comment: Speci men Type: BLOOD SPECIMEN Ordering Facility: [facility] Address: [address] [place] [address] Performed By: #### C OPPER #### [facility] CLIA [id number] [address] [place] [address] [place] MCH (RBC) [Entitic mass] 34.6 pg High 26.0-34.0 [facility] Comment on above: Order Comment: Speci men Type: BLOOD SPECIMEN Ordering Facility: [facility] Address: [address] [place] [address] Performed By: #### C OPPER #### [facility] CLIA [id number] [address] [place] [address] [place] MCHC (RBC) [Mass/Vol] 33.4 g/dL Normal 30.5-36.0 [facility] Comment on above: Order Comment: Speci men Type: BLOOD SPECIMEN Ordering Facility: [facility] Address: [address] [place] [address] Performed By: #### C OPPER #### [facility] CLIA [id number] [address] [place] [address] [place] MCV (RBC) [Entitic vol] 103.5 fL High 80.0-100.0 [facility] Comment on above: Order Comment: Speci men Type: BLOOD SPECIMEN Ordering Facility: [facility] Address: [address] [place] [address] Performed By: #### C OPPER #### [facility] CLIA [id number] [address] [place] [address] [place] Monocytes (Bld) [#/Vol] 0.72 10*3/uL Normal <0.87 [facility] Comment on above: Order Comment: Speci men Type: BLOOD SPECIMEN Ordering Facility: [facility] Address: [address] [place] [address] Performed By: #### C OPPER #### [facility] CLIA [id number] [address] [place] [address] [place] Monocytes/100 WBC (Bld) 10.9 % Normal [facility] Comment on above: Order Comment: Speci men Type: BLOOD SPECIMEN Ordering Facility: [facility] Address: [address] [place] [address] Performed By: #### C OPPER #### [facility] CLIA [id number] [address] [place] [address] [place] Neutrophils (Bld) [#/Vol] 4.74 10*3/uL Normal 1.45-7.50 [facility] Comment on above: Order Comment: Speci men Type: BLOOD SPECIMEN Ordering Facility: [facility] Address: [address] [place] [address] Performed By: #### C OPPER #### [facility] CLIA [id number] [address] [place], [place] [address] [place] Neutrophils/100 WBC (Bld) 72.0 % Normal [facility] Comment on above: Order Comment: Speci men Type: BLOOD SPECIMEN Ordering Facility: [facility] Address: [address] [place] [address] Performed By: #### C OPPER #### [facility] CLIA [id number] [address] [place] [address] [place] Nucleated RBC (Bld) [#/Vol] 10*3/uL Normal <0.01 [facility] Comment on above: Order Comment: Speci men Type: BLOOD SPECIMEN Ordering Facility: [facility] Address: [address] [place] [address] Performed By: #### C OPPER #### [facility] CLIA [id number] [address] [place] [address] [place] Nucleated RBC/100 WBC (Bld) [Ratio] 0.0 /100 WBC Normal [facility] Comment on above: Order Comment: Speci men Type: BLOOD SPECIMEN Ordering Facility: [facility] Address: [address] [place] [address] Performed By: #### C OPPER #### [facility] CLIA [id number] [address] [place] [address] [place] Platelet mean volume (Bld) [Entitic vol] 10.4 fL Normal 9.0-12.7 [facility] Comment on above: Order Comment: Speci men Type: BLOOD SPECIMEN Ordering Facility: [facility] Address: [address] [place] [address] Performed By: #### C OPPER #### [facility] CLIA [id number] [address] [place] [address] [place] Platelets (Bld) [#/Vol] 208 10*3/uL Normal 150-400 [facility] Comment on above: Order Comment: Speci men Type: BLOOD SPECIMEN Ordering Facility: [facility] Address: [address] [place] [address] Performed By: #### C OPPER #### [facility] CLIA [id number] [address] [place] [address] [place] RBC (Bld) [#/Vol] 4.05 10*6/uL Low 4.20-6.[address] [facility] Comment on above: Order Comment: Speci men Type: BLOOD SPECIMEN Ordering Facility: [facility] Address: [address] [place] [address] Performed By: #### C OPPER #### [facility] CLIA [id number] [address] [place] [address] [place] WBC (Bld) [#/Vol] 6.58 10*3/uL Normal 3.70-11.[address] [facility] Comment on above: Order Comment: Speci men Type: BLOOD SPECIMEN Ordering Facility: [facility] Address: [address] [place] [address] Performed By: #### C OPPER #### [facility] CLIA [id number] [address] [place] [address] [place] CRP SerPl-mCncon 10-30-2024 CRP [Mass/Vol] 0.6 mg/dL Normal <0.9 [facility] Comment on above: Order Comment: Speci men Type: BLOOD SPECIMENOrdering Facility: [facility] Address: [address] [place] [address] Performed By: #### 1 988-5, 4485-9, 4498-2, 2132-9 ####[facility] [id number] [place] [id number] [place] Comprehensive metabolic 2000 panelon 10-30-2024 Albumin [Mass/Vol] 4.3 g/dL Normal 3.9-4.9 [facility] Comment on above: Order Comment: Speci men Type: BLOOD SPECIMEN Ordering Facility: [facility] Address: [address] [place] [address] Performed By: #### 1 989-3 #### [facility] CLIA [id number] [address] [place] [address] [place] ALP [Catalytic activity/Vol] 145 U/L High 38-113 [facility] Comment on above: Order Comment: Speci men Type: BLOOD SPECIMEN Ordering Facility: [facility] Address: [address] [place] [address] Performed By: #### 1 989-3 #### [facility] CLIA [id number] [address] [place] [address] [place] ALT [Catalytic activity/Vol] 38 U/L Normal 10-54 [facility] Comment on above: Order Comment: Speci men Type: BLOOD SPECIMEN Order[facility] Facility: [facility] Address: [address] [place] [address] Performed By: #### 1 989-3 #### [facility] CLIA [id number] [address] [place] [address] [place] Anion gap [Moles/Vol] 13 mmol/L Normal 8-15 [facility] Comment on above: Order Comment: Speci men Type: BLOOD SPECIMEN Order[facility] Facility: [facility] Address: [address] [place] [address] Performed By: #### 1 989-3 #### [facility] CLIA [id number] [address] [place] [address] [place] AST [Catalytic activity/Vol] 51 U/L High 14-40 [facility] Comment on above: Order Comment: Speci men Type: BLOOD SPECIMEN Order[facility] Facility: [facility] Address: [address] [place] [address] Performed By: #### 1 989-3 #### [facility] CLIA [id number] [address] [place] [address] [place] Bilirubin [Mass/Vol] 0.8 mg/dL Normal 0.2-1.3 [facility] Comment on above: Order Comment: Speci men Type: BLOOD SPECIMEN Ordering Facility: [facility] Address: [address] [place] [id number] Performed By: #### 1 989-3 #### [facility] CLIA [id number] [address] [place], [place] [address] [place] Calcium [Mass/Vol] 9.9 mg/dL Normal 8.5-10.2 [facility] Comment on above: Order Comment: Speci men Type: BLOOD SPECIMEN Order[facility] Facility: [facility] Address: [address] [place], [place] [address] Performed By: #### 1 989-3 #### [facility] CLIA [id number] [address] [place] [address] [place] Chloride [Moles/Vol] 104 mmol/L Normal 98-107 [facility] Comment on above: Order Comment: Speci men Type: BLOOD SPECIMEN Order[facility] Facility: [facility] Address: [address] [place] [address] Performed By: #### 1 989-3 #### [facility] CLIA [id number] [address] [place] [address] [place] CO2 [Moles/Vol] 22 mmol/L Normal 22-30 [facility] Comment on above: Order Comment: Speci men Type: BLOOD SPECIMEN Order[facility] Facility: [facility] Address: [address] [place], [place] [address] Performed By: #### 1 989-3 #### [facility] CLIA [id number] [address] [place], [place] [address] [place] Creatinine [Mass/Vol] 0.67 mg/dL Low 0.73-1.22 [facility] Comment on above: Order Comment: Speci men Type: BLOOD SPECIMEN Order[facility] Facility: [facility] Address: [address] [place], [place] [address] Performed By: #### 1 989-3 #### [facility] CLIA [id number] [address] [place], [place] [address] [place] Creatinine and Glomerular filtration rate.predicted panel (S/P/Bld) 98 mL/min/1.73m??? Normal >=60 [facility] Comment on above: Order Comment: Medina peck Type: BLOOD SPECIMEN Order[facility] Facility: [facility] Address: [address] [place] [address] Result Comment: Micaela mated Glomerular Filtration Rate [...] GFR. Performed By: #### 1 989-3 #### [facility] CLIA [id number] [address] [place] [address] [place] Glucose [Mass/Vol] 148 mg/dL High 74-99 [facility] Comment on above: Order Comment: Medina peck Type: BLOOD SPECIMEN Order[facility] Facility: [facility] Address: [address] [place] [address] Result Comment: The [place] [employer] (ADA) provides guidance for cutoff [...] Standards of Medical Care in Diabetes 2016, [place] [employer]. Diabetes Care. 2016.39(Suppl 1). Performed By: #### 1 989-3 #### [facility] CLIA [id number] [address] [place] [address] [place] Potassium [Moles/Vol] 4.7 mmol/L Normal 3.7-5.1 [facility] Comment on above: Order Comment: Speci men Type: BLOOD SPECIMEN Ordering Facility: [facility] Address: [address] [place] [address] Performed By: #### 1 989-3 #### [facility] CLIA [id number] [address] [place] [address] [place] Protein [Mass/Vol] 7.5 g/dL Normal 6.3-8.0 [facility] Comment on above: Order Comment: Speci men Type: BLOOD SPECIMEN Order[facility] Facility: [facility] Address: [address] [place] [address] Performed By: #### 1 989-3 #### [facility] CLIA [id number] [address] [place] [address] [place] Sodium [Moles/Vol] 139 mmol/L Normal 136-144 [facility] Comment on above: Order Comment: Speci men Type: BLOOD SPECIMEN Order[facility] Facility: [facility] Address: [address] [place] [address] Performed By: #### 1 989-3 #### [facility] CLIA [id number] [address] [place] [address] [place] Urea nitrogen [Mass/Vol] 12 mg/dL Normal 9-24 [facility] Comment on above: Order Comment: Speci men Type: BLOOD SPECIMEN Order[facility] Facility: [facility] Address: [address] [place] [address] Performed By: #### 1 989-3 #### [facility] CLIA [id number] [address] [place], [place] [address] [place] DNA ANTIBODY DS BLDon 2024 DNA ANTIBODY 357 IU/mL High <=200 [facility] Comment on above: Order Comment: Speci men Type: BLOOD SPECIMENOrdering Facility: [facility] Address: [address] [place] [address] Result Comment: Nega tive: <200 IU/mL Equivocal: 201-300 IU/mL Moderate Positive: 301-800 IU/mL Strong Positive: >801 IU/mL Performed By: #### D NAAB ####[facility] [id number] [place] [address] [place] DNA ANTIBODY QUALITATIVE INTERPRETATION Positive Abnormal Negative [facility] Comment on above: Order Comment: Speci men Type: BLOOD SPECIMENOrdering Facility: [facility] Address: [address] [place] [address] Performed By: #### D NAAB ####[facility] [id number] [place] [address] [place] ESR Westergren method (Bld) [Velocity]on 10-30-2024 ESR (Bld) [Velocity] 22 mm/h High 0-15 [facility] [facility] Comment on above: Order Comment: Speci men Type: BLOOD SPECIMEN Ordering Facility: [facility] Address: [address] [place] [address] Performed By: #### C OPPER #### [facility] CLIA [id number] [address] [place] [address] [place] Free PSA [Mass/Vol]on 2024 Free PSA/Total PSA [Mass fraction] 19 % Normal [facility] Comment on above: Order Comment: Speci men Type: BLOOD SPECIMEN Ordering Facility: [facility] Address: [address] [place] [address] Result Comment: Tota l and free PSA test methodology used is the Electrochemiluminescence Immunoassay by Reema Papriika. Total or free PSA values by differing [...] 15.8% Performed By: #### 1 989-3 #### [facility] CLIA [id number] [address] [place] [address] [place] Prostate specific Ag [Mass/Vol] 4.22 ng/mL High <2.60 [facility] Comment on above: Order Comment: Speci men Type: BLOOD SPECIMEN Ordering Facility: [facility] Address: [address] [place] [address] Result Comment: Tota l PSA test methodology [...] 2003,349:335-42. Performed By: #### 1 989-3 #### [facility] CLIA [id number] [address] [place] [address] [place] LIPID PANEL, NONFASTINGon Cholesterol [Mass/Vol] 182 mg/dL Normal <200 [facility] Comment on above: Order Comment: Speci men Type: BLOOD SPECIMEN Ordering Facility: [facility] Address: [address] [place] [address] Result Comment: <200 mg/dL, Desirable 200-239 mg/dL, Borderline high >239 mg/dL, High Performed By: #### 1 989-3 #### [facility] CLIA [id number] [facility] [place] [address] [place] HDL CHOLESTEROL, NF 46 mg/dL Normal >[address] [facility] Comment on above: Order Comment: Medina liv Type: BLOOD SPECIMEN Ordering Facility: [facility] Address: [address] [place] [address] Result Comment: 40-5 9 mg/dL, Acceptable >59 mg/dL, High: Negative risk factor for coronary heart disease <40 mg/dL, Low: Positive risk factor for coronary heart disease Performed By: #### 1 989-3 #### [facility] CLIA [id number] [address] [place] [address] OF [facility] LDL CHOLESTEROL, NF 113 mg/dL High <[address] [facility] Comment on above: Order Comment: Medina peck Type: BLOOD SPECIMEN Ordering Facility: [facility] Address: [address] [place] [address] Result Comment: <100 mg/dL, Optimal 100-129 mg/dL, Near optimal/above optimal 130-159 mg/dL, Borderline high 160-189 mg/dL, High >189 mg/dL, Very high Secondary prevention optimal LDL Cholesterol levels are recommended to be < 70 mg/dL Performed By: #### 1 989-3 #### [facility] CLIA [id number] [address] [place] [address] [place] LDL/HDL RATIO, NF 2.46 mg/dL Normal <2.54 [facility] Comment on above: Order Comment: Medina [facility] Type: BLOOD SPECIMEN Ordering Facility[facility] Address: [address] [place] [address] Result Comment: Rhonda barnes: 1. National Cholesterol Education Program ATP III Guideline At-A-Glance Quick Desk Reference: National Heart, Lung, and Blood [place]. National Institutes of Health. 2001: NIH Publication No. 01-3305. 2. An International Atherosclerosis Society position paper: global recommendations for the management of dyslipidemia: executive summary, Atherosclerosis. 2014: 232(2):410-413. Performed By: #### 1 989-3 #### [facility] CLIA [id number] [address] [place] [address] [place] NON HDL CHOL, NF 136 mg/dL High <130 [facility] Comment on above: Order Comment: Medina peck Type: BLOOD SPECIMEN Order[facility] Address: [address] [place] [address] Result Comment: <130 mg/dL, Optimal 130-159 mg/dL, Near optimal/above optimal 160-189 mg/dL, Borderline high 190-219 mg/dL, High >219 mg/dL, Very high Secondary prevention optimal non HDL Cholesterol levels are recommended to be <100 mg/dL Performed By: #### 1 989-3 #### [facility] CLIA [id number] [address] [place] [address] [place] T CHOL/HDL RATIO NF 3.96 mg/dL Normal <5.[address] [facility] Comment on above: Order Comment: Medina peck Type: BLOOD SPECIMEN Ordering Facility[facility] Address: [address] [place] [address] Performed By: #### 1 989-3 #### [facility] CLIA [id number] [address] [place] [address] [place] TRIGLYCERIDES, NF 113 mg/dL Normal <150 [facility] Comment on above: Order Comment: Medina peck Type: BLOOD SPECIMEN Ordering Facility: [facility] Address: [address] [place] [address] Result Comment: <150 mg/dL, Normal 150-199 mg/dL, Borderline high 200-499 mg/dL, High >499 mg/dL, Very high Performed By: #### 1 989-3 #### [facility] CLIA [id number] [address] [place] [address] [place] VLDL CHOLESTEROL, NF 23 mg/dL Normal <30 [facility] Comment on above: Order Comment: Speci men Type: BLOOD SPECIMEN Ordering Facility[facility] Address: [address] [place] [address] Performed By: #### 1 989-3 #### [facility] CLIA [id number] [address] [place] [address] [place] Urate SerPl-mCncon Urate [Mass/Vol] 5.8 mg/dL Normal 4.0-8.1 [facility] Comment on above: Order Comment: Speci men Type: BLOOD SPECIMEN Ordering [facility] Address: [address] [place] [address] Performed By: #### 1 989-3 #### [facility] CLIA [id number] [address] [place] [address] [place] Urinalysis complete panel (U )on 10-30-2024 Bacteria LM.HPF (Urine sed) [#/Area] Negative Normal Negative [facility] Comment on above: Order Comment: Speci men Type: BLOOD SPECIMEN Ordering Facility: [facility] Address: [address] [place] [address] Performed By: #### 2 284-8, 7275-2, 2132-03 #### [facility] CLIA [id number] [address] [place] [address] [place] Bilirubin Ql (U) Negative Normal Negative [facility] Comment on above: Order Comment: Speci men Type: BLOOD SPECIMEN Ordering [facility] Address: [address] [place] [address] Performed By: #### 2 284-8, 9325-2, 9 #### [facility] CLIA [id number] [address] [place] [address] [place] CALCIUM OXALATE CRYSTALS (UA) Few Abnormal None Seen [facility] Comment on above: Order Comment: Speci men Type: BLOOD SPECIMEN Ordering Facility[facility] Address: [address] [place] [address] Performed By: #### 2 284-8, 2885-2, 2132-03 #### [facility] CLIA [id number] [address] [place] Clarity (Unsp spec) Cloudy Abnormal Clear [facility] Comment on above: Order Comment: Speci men Type: BLOOD SPECIMEN Ordering Facility[facility] Address: [address] [place] [address] Performed By: #### 2 284-8, 2885-2, 2132-03 #### [facility] CLIA [id number] [address] [place] Color (U) Dark Yellow Abnormal Yellow [facility] Comment on above: Order Comment: Speci men Type: BLOOD SPECIMEN Order[facility] Address: [address] [place] [address] Performed By: #### 2 284-8, 288-2, 2132-03 #### [facility] CLIA [id number] [address] [place] Epithelial cells LM.HPF (Urine sed) [#/Area] None Seen Normal [facility] Comment on above: Order Comment: Speci men Type: BLOOD SPECIMEN Order[facility] Address: [address] [place] [address] Performed By: #### 2 284-8, 288-2, 2132-03 #### [facility] CLIA [id number] [address] [place] [address] [place] Glucose Test strip (U) [Mass/Vol] Negative Normal Negative [facility] Comment on above: Order Comment: Speci men Type: BLOOD SPECIMEN Ordering [facility] Address: [address] [place] [address] Performed By: #### 2 284-8, 2885-2, 2132-03 #### [facility] CLIA [id number] 1 [place] [address] [place] Hemoglobin Ql (U) Negative Normal Negative [facility] Comment on above: Order Comment: Speci men Type: BLOOD SPECIMEN Ordering [facility] Address: [address] [place] [address] Performed By: #### 2 284-8, 2885-2, 2132-03 #### [facility] CLIA [id number] [address] [place] Hyaline casts (Urine sed) [#/Area] 4-10 /LPF Abnormal 0 /LPF [facility] Comment on above: Order Comment: Speci men Type: BLOOD SPECIMEN Ordering [facility] Address: [address] [place] [address] Performed By: #### 2 284-8, 2885-2, 2132-03 #### [facility] CLIA [id number] [address] [place] Ketones Ql (U) Trace Abnormal Negative [facility] Comment on above: Order Comment: Speci men Type: BLOOD SPECIMEN Order[facility] Address: [address] [place] [address] Performed By: #### 2 284-8, 288-2, 2132-03 #### [facility] CLIA [id number] [address] Leukocyte esterase Test strip Ql (U) 1+ Abnormal Negative [facility] Comment on above: Order Comment: Speci men Type: BLOOD SPECIMEN Ordering [facility] Address: [address] [place] [address] Performed By: #### 2 284-8, 288-2, 2132-03 #### [facility] CLIA [id number] [address] [place] [address] [place] Nitrite Ql (U) Negative Normal Negative [facility] Comment on above: Order Comment: Speci men Type: BLOOD SPECIMEN Ordering Facility[facility] Address: [address] [place] [address] Performed By: #### 2 284-8, 2885-2, 2132-03 #### [facility] CLIA [id number] [address] [place] [address] [place] pH (U) 5.5 [pH] Normal <8.5 [facility] Comment on above: Order Comment: Speci men Type: BLOOD SPECIMEN Ordering Facility: [facility] Address: [address] [place] [address] Performed By: #### 2 284-8, 2885-2, 2132-03 #### [facility] CLIA [id number] [address] Protein (U) [Mass/Vol] 1+ Abnormal Negative [facility] Comment on above: Order Comment: Speci men Type: BLOOD SPECIMEN Ordering Facility[facility] Address: [address] [place] [address] Performed By: #### 2 284-8, 2882, 2132-03 #### [facility] CLIA [id number] [address] [place] RBC LM.HPF (Urine sed) [#/Area] 6-10 /HPF Abnormal 0-2 /HPF [facility] Comment on above: Order Comment: Speci men Type: BLOOD SPECIMEN Ordering Facility[facility] Address: [address] [place] [address] Performed By: #### 2 284-8, 288-2, 2132-03 #### [facility] CLIA [id number] [address] [place] Specific gravity (U) [Rel density] 1.019 Normal 1.005-1.030 [facility] Comment on above: Order Comment: Speci men Type: BLOOD SPECIMEN Ordering Facility: [facility] Address: [address] [place] [address] Performed By: #### 2 284-8, 288-2, 2132-03 #### [facility] CLIA [id number] [address] [place] Urobilinogen Ql (U) 1.0 EU/dL Normal 0.2-1.0 EU/dL [facility] Comment on above: Order Comment: Speci men Type: BLOOD SPECIMEN Ordering Facility[facility] Address: [address] [id number] Performed By: #### 2 284-8, 2885-2, 9 #### [facility] [place] [place] [facility] CLIA [id number] [address] [place] WBC LM.HPF (Urine sed) [#/Area] 6-10 /HPF Abnormal 0-5 /HPF [facility] Comment on above: Order Comment: Speci men Type: BLOOD SPECIMEN Ordering [facility] Address: [address] [place] [address] Performed By: #### 2 284-8, 2885-2, 9 #### [facility] [place] [place] [facility] CLIA [id number] [address] [place] Vit B12 SerPl-mCncon 025 Cobalamin (Vitamin B12) [Mass/Vol] 950 pg/mL Normal 232-1245 [facility] Comment on above: Order Comment: Speci men Type: BLOOD SPECIMENOrdering Facility: [facility] Address: [address] [place], [place] [address] Performed By: #### 1 988-5, 4485-9, 4498-2, 9 ####[facility] [id number] [place] [id number] [place] CNOVSPon 10-23-2024 CNOVSP Visit (SP) Office (H EMAWS) -- NAZARIO HUTTON ([id number]) 1950 M Date Time Provider Department 10/23/24 11:10 AM STEPHANIE ROY During your visit today, we recorded the following information about you: Temperature Pulse Blood pressure Weight 98.6 degrees 83/minute 126/76 93.9 kg Stephanie Roy DO 10/23/2024 2:11 PM Signed Hematologic problem(s): 1) Monoclonal gammopathy. HPI: The patient is a 73 yo male with PMH as outlined below. CAD--OK PCI 2021. 07/2022--Lower GI bleed. 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 Normal [facility] XR BONE SURVEY ROUTINEon XR BONE [...] osteolytic, osteosclerotic, or destructive bone lesions identified Child And Adolescent Therapist: PSCB Transcribe Date/Time: Oct 29 2024 4:35P Dictated by : KAL PA MD This examination was interpreted and the report reviewed and electronically signed by: KAL PA MD on Oct 29 2024 4:41PM EST [id number] Normal [facility] Calcium.ionized [Moles/Vol]o n 03-31-2025 Calcium.ionized (Bld) [Mass/Vol] 1.25 mmol/L Normal 1.08-1.30 [facility] Comment on above: Order Comment: Speci men Type: BLOOD SPECIMEN [facility] Address: [address] [place] [address] Performed By: #### 2 284-8, 2885-2, 2131-9 #### [facility] [place] [place] [facility] CLIA [id number] [address] [place] [id number] [place] Calcium.ionized adjusted to pH 7.4 (Bld) [Moles/Vol] 1.24 mmol/L Normal 1.08-1.30 [facility] Comment on above: Order Comment: Speci men Type: BLOOD SPECIMEN Order[facility] Address: [address] [place] [address] Performed By: #### 2 284-8, 2885-2, 9 #### [facility] [place] [place] [facility] CLIA [id number] 1 [place] [address] [place] Calculi, Urinary w / Photoon 10-21-2024 . Comment Normal . [facility] Comment on above: Result Comment: Perc entage (Represents the % composition) Performed By: #### L 3400.5105, L3200.1600, L503.7505, L509.7001 #### [facility] [address] [place], [address] 2,8 Dihydroxyad TNP Normal . [facility] Comment on above: Performed By: #### L 3400.5105, L3200.1600, L503.7505, L509.7001 #### [facility] [address] [place], [address] AMM ACID URATE TNP Normal . [facility] Comment on above: Performed By: #### L 3400.5105, L3200.1600, L503.7505, L509.7001 #### [facility] [address] [place], [address] Bilirubin Ql (U) TNP Normal . [facility] Comment on above: Performed By: #### L 3400.5105, L3200.1600, L503.7505, L509.7001 #### [facility] [address] [place], [address] CA BILIRUBINATE TNP Normal . [facility] Comment on above: Performed By: #### L 3400.5105, L3200.1600, L503.7505, L509.7001 #### [facility] [address] [place], [address] CA CARBONATE TNP Normal . [facility] Comment on above: Performed By: #### L 3400.5105, L3200.1600, L503.7505, L509.7001 #### [facility] [address] [place], [address] CA HYDROG PHOS TNP Normal . [facility] Comment on above: Performed By: #### L 3400.5105, L3200.1600, L503.7505, L509.7001 #### [facility] [address] [place], [address] CA OXAL DIHYDR TNP Normal . [facility] Comment on above: Performed By: #### L 3400.5105, L3200.1600, L503.7505, L509.7001 #### [facility] [address] [place], [address] CA OXAL MONOHYD 40 Normal . [facility] Comment on above: Performed By: #### L 3400.5105, L3200.1600, L503.7505, L509.7001 #### [facility] [address] [place], [address] CA Palmitate TNP Normal . [facility] Comment on above: Performed By: #### L 3400.5105, L3200.1600, L503.7505, L509.7001 #### [facility] [address] [place], [address] CA PHOS (hydro) TNP Normal . [facility] Comment on above: Performed By: #### L 3400.5105, L3200.1600, L503.7505, L509.7001 #### [facility] [address] [place], [address] CA PHOSPHATE TNP Normal . [facility] Comment on above: Performed By: #### L 3400.5105, L3200.1600, L503.7505, L509.7001 #### [facility] [address] [place], [address] CA Stearate TNP Normal . [facility] Comment on above: Performed By: #### L 3400.5105, L3200.1600, L503.7505, L509.7001 #### [facility] [address] [place], [address] CELL MATERIAL TNP Normal . [facility] Comment on above: Performed By: #### L 3400.5105, L3200.1600, L503.7505, L509.7001 #### [facility] [address] [place], [address] CHOLESTEROL TNP Normal . [facility] Comment on above: Performed By: #### L 3400.5105, L3200.1600, L503.7505, L509.7001 #### [facility] [address] [place], [address] Color (U) Brown Normal . [facility] Comment on above: Performed By: #### L 3400.5105, L3200.1600, L503.7505, L509.7001 #### [facility] [address] [place], [address] COMMENT TNP Normal . [facility] Comment on above: Performed By: #### L 3400.5105, L3200.1600, L503.7505, L509.7001 #### [facility] [address] [place], [place], [address] COMMENT Comment Normal . [facility] Comment on above: Result Comment: Calc ulus received wet. Wet calculi must be dried before analysis, which delays reporting of results. Leaving calculi wet (such as water, saline, blood, urine) may lead to changes in composition. Performed By: #### L 3400.5105, L3200.1600, L503.7505, L509.7001 #### [facility] [address] [place], [place], [address] Result Comment: Phys ician questions regarding Calculi Analysis [facility] at: [phone]. Result Comment: Calc tiffany report will follow via computer, mail or cone machine operator delivery. CYSTINE TNP Normal . [facility] Comment on above: Performed By: #### L 3400.5105, L3200.1600, L503.7505, L509.7001 #### [facility] [address] [place], [address] Disclaimer Comment Normal . [facility] Comment on above: Result Comment: This test was developed and its performance characteristics determined by [facility]. It has not been cleared or approved by the Food and Drug Administration. Performed at: [address] [id number] Borderer: Jose Harris PhD, Phone: [phone] Performed By: #### L 3400.5105, L3200.1600, L503.7505, L509.7001 #### [facility] [address] [place], [place], [address] DRIED BLOOD TNP Normal . [facility] Comment on above: Performed By: #### L 3400.5105, L3200.1600, L503.7505, L509.7001 #### [facility] [address] [place], [address] Drug/Metabolite TNP Normal . [facility] Comment on above: Performed By: #### L 3400.5105, L3200.1600, L503.7505, L509.7001 #### [facility] [address] [place], [address] MAG EMMETT PHOS TNP Normal . [facility] Comment on above: Performed By: #### L 3400.5105, L3200.1600, L503.7505, L509.7001 #### [facility] [address] [place], [address] NA ACID URATE TNP Normal . [facility] Comment on above: Performed By: #### L 3400.5105, L3200.1600, L503.7505, L509.7001 #### [facility] [address] [place], [address] NEWBERYITE TNP Normal . [facility] Comment on above: Performed By: #### L 3400.5105, L3200.1600, L503.7505, L509.7001 #### [facility] [address] [place], [address] Other Component TNP Normal . [facility] Comment on above: Performed By: #### L 3400.5105, L3200.1600, L503.7505, L509.7001 #### [facility] [address] [place], [address] PHOTO Comment Normal . [facility] Comment on above: Result Comment: Phot ograph will follow under a separate cover Performed By: #### L 3400.5105, L3200.1600, L503.7505, L509.7001 #### [facility] [address] [place], [address] SIZE 7x5 Normal . [facility] Comment on above: Result Comment: Mult iple pieces received. Dimensions of the largest piece reported. Performed By: #### L 3400.5105, L3200.1600, L503.7505, L509.7001 #### [facility] [address] [place], [address] SOURCE Comment Normal . [facility] Comment on above: Result Comment: Not provided Performed By: #### L 3400.5105, L3200.1600, L503.7505, L509.7001 #### [facility] [address] [place], [address] TRIAMTERENE TNP Normal . [facility] Comment on above: Performed By: #### L 3400.5105, L3200.1600, L503.7505, L509.7001 #### [facility] [address] [place], [address] URIC ACID 60 Normal . [facility] Comment on above: Performed By: #### L 3400.5105, L3200.1600, L503.7505, L509.7001 #### [facility] [address] [place], [address] URIC ACID DIHYD TNP Normal . [facility] Comment on above: Performed By: #### L 3400.5105, L3200.1600, L503.7505, L509.7001 #### [facility] [address] [place], [address] WEIGHT 88 mg Normal . [facility] Comment on above: Performed By: #### L 3400.5105, L3200.1600, L503.7505, L509.7001 #### [facility] [address] [place], [address] XANTHINE TNP Normal . [facility] Comment on above: Performed By: #### L 3400.5105, L3200.1600, L503.7505, L509.7001 #### [facility] [address] [place], [address] MONOCLONAL PROT 24 UR W/INTE RPon 10-21-2024 STAFF REVIEW ([facility]) Reviewed by Haydee Phelps MD Normal [facility] Comment on above: Order Comment: Speci men Type: BLOOD SPECIMEN [facility] Address: [address] [place] [address] Performed By: #### 2 284-8, 2885-2, 2131-9 #### [facility] [place] [place] [facility] CLIA [id number] [address] [place] [address] [place] UMPA RESULT No M protein is identified. Normal No M protein is identified. [facility] Comment on above: Order Comment: Speci men Type: BLOOD SPECIMEN Order[facility] Address: [address] [place] [address] Performed By: #### 2 284-8, 2885-2, 9 #### [facility] [facility] CLIA [id number] [address] [place] [address] [place] PROT ELEC UR 24HR W/M SPIKE (P)on 10-21-2024 Albumin/Globulin Elph (24H U) [Mass ratio] 44.50 % Normal [facility] Comment on above: Order Comment: Speci men Type: URINE SPECIMENOrdering Facility: [facility] Address: [address] [place] [address] Performed By: #### L [id number] ####[facility] [id number] [place] [address] [place] [place] Alpha 1 globulin Elph (24H U) [Mass fraction] 5.50 % [facility] Comment on above: Order Comment: Speci men Type: URINE SPECIMENOrdering Facility: [facility] Address: [address] [place] [address] Performed By: #### L [id number] ####[facility] [id number] [place] [address] [place] Alpha 2 globulin Elph (24H U) [Mass fraction] 17.65 % Normal [facility] Comment on above: Order Comment: Speci men Type: URINE SPECIMENOrdering Facility: [facility] Address: [address] [place] [address] Performed By: #### L [id number] ####[facility] [id number] [place] [address] [place] Beta globulin Elph (24H U) [Mass fraction] 19.74 % Normal [facility] Comment on above: Order Comment: Speci men Type: URINE SPECIMENOrdering Facility: [facility] Address: [address] [place] [address] Performed By: #### L [id number] ####[facility] [id number] [place] [address] [place] Gamma globulin Elph (24H U) [Mass fraction] 12.62 % Normal [facility] Comment on above: Order Comment: Speci men Type: URINE SPECIMENOrdering Facility: [facility] Address: [address] [place] [address] Performed By: #### L [id number] ####[facility] [id number] [place] [address] [place] Protein Fractions Elph Kamaljit (24H U) [Interp] No definitive M protein is identified on protein electrophoresis. Normal No definitive M protein is identified on protein electrophore sis. [facility] Comment on above: Order Comment: Speci men Type: URINE SPECIMENOrdering Facility: [facility] Address: [address] [place] [address] Performed By: #### L [id number] ####[facility] [id number] [place] [address] [place] Protein.monoclonal Elph (24H U) [Mass/Time] 0.00 g/24hr Normal [facility] Comment on above: Order Comment: Speci men Type: URINE SPECIMENOrdering Facility: [facility] Address: [address] [place] [address] Performed By: #### L [id number] ####[facility] [id number] [address] STAFF REVIEW (UEPG24) Reviewed by Haydee Phelps MD Normal [facility] Comment on above: Order Comment: Speci men Type: URINE SPECIMENOrdering Facility: [facility] Address: [address] [place] [address] Performed By: #### L [id number] ####[facility] [id number] [place] [address] [place] Prot 24h Ur-mRateon 10-22-19 Protein (24H U) [Mass/Time] 0.11 g/24 Hr Normal <0.15 [facility] Comment on above: Order Comment: Speci men Type: BLOOD SPECIMEN [facility] Address: [address] [place] [address] Result Comment: Adul t Proteinuria Categories: <0.15 g/24 hours is considered normal to mildly increased 0.15 - 0.50 g/24 hours is considered moderately increased >0.50 g/24 hours is considered severely increased KDIGO. (2013). KDIGO 2012 Clinical Practice Guideline for the Evaluation and Management of Chronic Kidney Disease. Official Journal of the International Society of Nephrology, 3(1), 1-150. Performed By: #### 2 2314-9, 5195-3, 95167-7 #### [facility] [id number] [address] [place] [address] [place] Protein (24H U) [Mass/Time]o n 10-21-2024 PERIOD (HRS) 24 hr Normal [facility] Comment on above: Order Comment: Speci men Type: BLOOD SPECIMEN [facility] Address: [address] [place] [address] Performed By: #### 2 2314-9, 5195-3, 33553-8 #### [facility]IA [id number] [address] [place] [address] [place] Specimen volume (24H U) 2.65 L [facility] Comment on above: Order Comment: Speci men Type: BLOOD SPECIMEN [facility] Address: [address] [place] [address] Performed By: #### 2 2314-9, 5195-3, 95833-2 #### [facility] [id number] [address] [place] [address] [place] Surgical pathology reportOrd ered By: Payton Norton on 10-15-2024 Surgical pathology study [facility] Ammonium urate crystals Infr ared spectroscopy Ql (Stone)Ordered By: Geovani Barron on 10-11-2024 Stone Ammonium Acid Urate [facility] Comment on above: Test not performed Ammonium urate crystals dete ction in stone by infrared spectroscopyOrdered By: Geovani Barron on 10-11-2024 Ammonium urate crystals Infrared spectroscopy Ql (Stone) [facility] Comment on above: Test not performed Blood.dried (Stone) [Mass fr action]Ordered By: Geovani Barron on 10-11-2024 Stone Dried Blood [facility] Comment on above: Test not performed Calcium hydrogen phosphate c rystals Infrared spectroscopy Ql (Stone)Ordered By: Geovani Barron on 10-11-2024 Stone Calcium Hydrogen Phosphate [facility] Comment on above: Test not performed Calcium hydrogen phosphate c rystals detection in stone by infrared spectroscopyOrdered By: Geovani Barron on 10-11-2024 Calcium hydrogen phosphate crystals Infrared spectroscopy Ql (Stone) [facility] Comment on above: Test not performed Calcium oxalate dihydrate cr ystals Infrared spectroscopy Ql (Stone)Ordered By: Geovani Barron on 10-11-2024 Stone Calcium Oxalate Dihydrate [facility] Comment on above: Test not performed Calcium oxalate dihydrate cr ystals detection in stone by infrared spectroscopyOrdered By: Geovani Barron on 10-11-2024 Calcium oxalate dihydrate crystals Infrared spectroscopy Ql (Stone) [facility] Comment on above: Test not performed Cellular material Est (Stone ) [Mass/Mass]Ordered By: Geovani Barron on 10-11-2024 Stone Cellular Material [facility] Comment on above: Test not performed Cholesterol measurementOrder ed By: Geovani Barron on 10-11-2024 Stone Cholesterol [facility] Comment on above: Test not performed Color (Unsp spec)Ordered By: Geovani Barron on 10-11-2024 Stone Color Brown . [facility] Color of specimen determinat ionOrdered By: Geovani Barron on 10-11-2024 Color (Unsp spec) Brown . [facility] Cystine (Unsp spec) [Moles/V ol]Ordered By: Geovani Barron on 10-11-2024 Stone Cystine [facility] Comment on above: Test not performed Cystine measurementOrdered B y: Geovani Barron on 10-11-2024 Cystine (Unsp spec) [Moles/Vol] [facility] Comment on above: Test not performed Determination of volume of c alculusOrdered By: Geovani Barron on 10-11-2024 Size (Stone) [Entitic vol] 7x5 mm . [facility] Comment on above: Multiple pieces rece ived. Dimensions of the largest piecereported. Estimation of cellular mater ial in calculus (mass/mass)Ordered By: Geovani Barron on 10-11-2024 Cellular material Est (Stone) [Mass/Mass] [facility] Comment on above: Test not performed External camera medical phot ographyOrdered By: Geovani Barron on 10-11-2024 Urinary Stone Photo Note Comment . [facility] Comment on above: Photograph will foll ow under a separate cover Laboratory - Miscellaneous t estsOrdered By: Geovani Barron on 10-11-2024 Service comment (Unsp spec) [Interp] [facility] Comment on above: Test not performed Service comment (Unsp spec) [Interp] Comment . [facility] Comment on above: Calculus received we t. Wet calculi must be dried beforeanalysis, which delays reporting of results. Leaving calculiwet (such as water, saline, blood, urine) may lead tochanges in composition. Physician questions regarding Calculi Analysis contactLabcorp at: [phone]. Calculi report will follow via computer, mail or courierdelivery. Measurement of proportion of calculus composed of dried blood (mass/mass)Ordered By: Geovani Barron on 10-11-2024 Blood.dried (Stone) [Mass fraction] [facility] Comment on above: Test not performed Measurement of weight of sto neOrdered By: Geovani Barron on 10-11-2024 Weight (Stone) 88 mg . [facility] Newberyite crystals Infrared spectroscopy Ql (Stone)Ordered By: Geovani Barron on 10-11-2024 Stone Newberyite [facility] Comment on above: Test not performed Newberyite crystals detectio n in stone by infrared spectroscopyOrdered By: Geovani Barron on 10-11-2024 Newberyite crystals Infrared spectroscopy Ql (Stone) [facility] Comment on above: Test not performed No Panel InformationOrdered By: Geovani Barron on 10-11-2024 Stone 2,8 Dihydroxyadenine [facility] Comment on above: Test not performed Stone Analysis (T) Comment . [facility] Comment on above: Percentage (Represen ts the % composition) Stone Bilirubin [facility] Comment on above: Test not performed Stone Calcium Bilirubinate [facility] Comment on above: Test not performed Stone Calcium Carbonate [facility] Comment on above: Test not performed Stone Calcium Hydroxyl-Phosphate [facility] Comment on above: Test not performed Stone Calcium Oxalate Monohydrate 40 % . [facility] Stone Calcium Palmitate [facility] Comment on above: Test not performed Stone Calcium Phosphate Carbonate [facility] Comment on above: Test not performed Stone Calcium Stearate [facility] Comment on above: Test not performed Stone Drug or Metabolite [facility] Comment on above: Test not performed Stone Other Component(s) [facility] Comment on above: Test not performed Stone Xanthine [facility] Comment on above: Test not performed Origin Nom (Stone)Ordered By : Geovani Barron on 10-11-2024 Stone Source Comment . [facility] Comment on above: Not provided Origin of StoneOrdered By: Irma Barron on 10-11-2024 Origin Nom (Stone) Comment . [facility] Comment on above: Not provided Service comment (Unsp spec) [Interp]Ordered By: Geovani Barron on 10-11-2024 Stone Comment [facility] Comment on above: Test not performed Stone Comment 2 Comment . [facility] Comment on above: Calculus received we t. Wet calculi must be dried beforeanalysis, which delays reporting of results. Leaving calculiwet (such as water, saline, blood, urine) may lead tochanges in composition. Stone Comment 3 Comment . [facility] Comment on above: Physician questions regarding Calculi Analysis [facility] at: [phone]. Stone Comment 4 Comment . [facility] Comment on above: Calculi report will follow via computer, mail or courierdelivery. Size (Stone) [Entitic vol]Or dered By: Geovani Barron on 10-11-2024 Stone Size 7x5 mm . [facility] Comment on above: Multiple pieces rece ived. Dimensions of the largest piecereported. Sodium urate crystals Infrar ed spectroscopy Ql (Stone)Ordered By: Geovani Barron on 10-11-2024 Stone Sodium Acid Urate [facility] Comment on above: Test not performed Sodium urate crystals detect ion in stone by infrared spectroscopyOrdered By: Geovani Barron on 10-11-2024 Sodium urate crystals Infrared spectroscopy Ql (Stone) [facility] Comment on above: Test not performed Surgery Specimen Level Ion 0 10-11-2024 Surgery Specimen Level I Patient Age/Sex Location Account Attending Physician NAZARIO HUTTON 73/M [facility] [id number] Dr. Geovani Barron MD Specimen: [id number] Received: 10/14/24 Status: ROSEMARIE Corrigan Num: [id number] Spec Type: Calculi Subm Dr: Dr. Geovani [...] and entirely submitted for chemical analysis. 10/14/2024 CPT:65616 Patient Age/Sex Location Account Attending Physician NAZARIO HUTTON 73/M [facility] [id number] Dr. Geovani Barron MD Signed (signature on file) Dr. Payton Norton MD 10/15/24 1717 Normal [facility] Comment on above: Performed By: #### L 3400.5105, L3200.1600, L503.7505, L509.7001 #### [facility] Erika [address]om[address]. [place], [place], [address] Triamterene crystals Infrare d spectroscopy Ql (Stone)Ordered By: Geovani Barron on 10-11-2024 Stone Triamterene [facility] Comment on above: Test not performed Triamterene crystals detecti on in stone by infrared spectroscopyOrdered By: Geovani Barron on 10-11-2024 Triamterene crystals Infrared spectroscopy Ql (Stone) [facility] Comment on above: Test not performed Triple phosphate crystals In frared spectroscopy Ql (Stone)Ordered By: Geovani Barron on 10-11-2024 Stone Magnesium Ammonium Phosphate [facility] Comment on above: Test not performed Triple phosphate crystals de tection in stone by infrared spectroscopyOrdered By: Geovani Barron on 10-11-2024 Triple phosphate crystals Infrared spectroscopy Ql (Stone) [facility] Comment on above: Test not performed Urate crystals Infrared spec troscopy Ql (Stone)Ordered By: Geovani Barron on 10-11-2024 Stone Uric Acid 60 % . [facility] Urate dihydrate crystals Inf rared spectroscopy Ql (Stone)Ordered By: Geovani Barron on 10-11-2024 Stone Uric Acid Dihydrate [facility] Comment on above: Test not performed Uric acid crystals detection in stone by infrared spectroscopyOrdered By: Geovani Barron on 10-11-2024 Urate crystals Infrared spectroscopy Ql (Stone) 60 % . [facility] Uric acid dihydrate crystals detection in stone by infrared spectroscopyOrdered By: Geovani Barron on 10-11-2024 Urate dihydrate crystals Infrared spectroscopy Ql (Stone) [facility] Comment on above: Test not performed Weight (Stone)Ordered By: Angella Barron on 10-11-2024 Stone Weight 88 mg . [facility] Baljit 09-27-2024 [place] Telephone (JENNIFER) -- NAZARIO HUTTON ([id number]) 1950 M Date Time Provider Department 09/27/24 [...] visit scheduled with patient. 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 #:[id number] MONOCLONAL PROT 24 UR W/INTERP [[id number]] Order #: [id number]. #:[id number] PROTEIN, 24 HOUR URINE [[id number]] Reflex Order#: [id number] (Ord#:[id number])Spec. #:[id number] PROT ELEC UR 24HR W/M SPIKE (P) [[id number]] Reflex Order#: [id number] (Ord#:[id number])Spec. 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 Normal [facility] CBC W Auto Differential pane l (Bld)on 09-25-2024 Basophils (Bld) [#/Vol] 0.08 10[facility] Basophils/100 WBC (Bld) 0.9 % [facility] Differential cell count method Nom (Bld) Auto [facility] Eosinophils (Bld) [#/Vol] 1.07 10*3/uL [facility] Eosinophils/100 WBC (Bld) 12.4 % [facility] Erythrocyte distribution width (RBC) [Ratio] 13.5 % 11.5 - 15.0 % [facility] Hematocrit (Bld) [Volume fraction] 43.8 % 39.0 - 51.0 % [facility] Hemoglobin (Bld) [Mass/Vol] 15 g/dL 13.0 - 17.0 g/dL [facility] Immature granulocytes (Bld) [#/Vol] 0.03 10*3/[facility] Immature granulocytes/100 WBC (Bld) 0.3 % [facility] Interpretation and review of laboratory results Abnormal [facility] Lymphocytes (Bld) [#/Vol] 0.78 10*3/uL Low [facility] Lymphocytes/100 WBC (Bld) 9.1 % [facility] MCH (RBC) [Entitic mass] 34.4 pg High 26.0 - 34.0 pg [facility] MCHC (RBC) [Mass/Vol] 34.2 g/dL 30.5 - 36.0 g/dL [facility] MCV (RBC) [Entitic vol] 100.5 fL High 80.0 - 100.0 fL [facility] Monocytes (Bld) [#/Vol] 0.82 10*3/uL [facility] Monocytes/100 WBC (Bld) 9.5 % [facility] Neutrophils (Bld) [#/Vol] 5.82 10*3/uL [facility] Neutrophils/100 WBC (Bld) 67.8 % [facility] Nucleated RBC (Bld) [#/Vol] [facility] Nucleated RBC/100 WBC (Bld) [Ratio] 0 % /100 WBC [facility] Platelet mean volume (Bld) [Entitic vol] 10.1 fL 9.0 - 12.7 fL [facility] Platelets (Bld) [#/Vol] 245 10*3/uL [facility] RBC (Bld) [#/Vol] 4.36 10*6/uL 4.20 - 6.0 0 m/uL [facility] WBC (Bld) [#/Vol] 8.6 10*3/uL [facility] Basophils (Bld) [#/Vol] 0.08 10*3/uL Normal <0.11 [facility] Comment on above: Order Comment: Speci men Type: BLOOD SPECIMEN [facility] Address: [address] [place], [place] [address] Performed By: #### 2 2314-9, 5195-3, 47115-4 #### [facility] CLIA [id number] [address] [place] [address] [place] Basophils/100 WBC (Bld) 0.9 % Normal [facility] Comment on above: Order Comment: Speci men Type: BLOOD SPECIMEN [facility] Address: [address] [place] [address] Performed By: #### 2 2314-9, 5-3, 71776-9 #### [facility] CLIA [id number] [address] [place] [address] [place] Differential cell count method Nom (Bld) Auto Normal [facility] Comment on above: Order Comment: Speci men Type: BLOOD SPECIMEN [facility] Address: [address] [place] [address] Performed By: #### 2 2314-9, 3, 14453-2 #### [facility] CLIA [id number] [address] [place] [address] [place] Eosinophils (Bld) [#/Vol] 1.07 10*3/uL High <0.46 [facility] Comment on above: Order Comment: Speci men Type: BLOOD SPECIMEN [facility] Address: [address] [place] [address] Performed By: #### 2 2314-9, 3, 98387-2 #### [facility] CLIA [id number] [address] [place] [address] [place] Eosinophils/100 WBC (Bld) 12.4 % Normal [facility] Comment on above: Order Comment: Speci men Type: BLOOD SPECIMEN [facility] Address: [address] [place] [address] Performed By: #### 2 2314-9, 53, 09297-9 #### [facility] CLIA [id number] [address] [place] [address] [place] Erythrocyte distribution width (RBC) [Ratio] 13.5 % Normal 11.5-15.0 [facility] Comment on above: Order Comment: Speci men Type: BLOOD SPECIMEN [facility] Address: [address] [place] [address] Performed By: #### 2 2314-9, 5195-3, 54856-7 #### [facility] CLIA [id number] [address] [place] [address] [place] Hematocrit (Bld) [Volume fraction] 43.8 % Normal 39.0-51.0 [facility] Comment on above: Order Comment: Speci men Type: BLOOD SPECIMEN [facility] Address: [address] [place] [address] Performed By: #### 2 2314-9, 5195-3, 76405-0 #### [facility] CLIA [id number] [address] [place] [address] [place] Hemoglobin (Bld) [Mass/Vol] 15.0 g/dL Normal 13.0-17.0 [facility] Comment on above: Order Comment: Speci men Type: BLOOD SPECIMEN [facility] Address: [address] [place] [address] Performed By: #### 2 2314-9, 5195-3, 09626-8 #### [facility] CLIA [id number] [address] [place] [address] [place] Immature granulocytes (Bld) [#/Vol] 0.03 10*3/uL Normal <0.10 [facility] Comment on above: Order Comment: Speci men Type: BLOOD SPECIMEN [facility] Address: [address] [place] [address] Performed By: #### 2 2314-9, 5195-3, 89514-9 #### [facility] CLIA [id number] [address] [place] [place] [address] [place] Immature granulocytes/100 WBC (Bld) 0.3 % Normal [facility] Comment on above: Order Comment: Speci men Type: BLOOD SPECIMEN [facility] Address: [address] [place] [address] Performed By: #### 2 2314-9, 5195-3, 02301-6 #### [facility] CLIA [id number] [address] [place] [address] [place] Lymphocytes (Bld) [#/Vol] 0.78 10*3/uL Low 1.00-4.00 [facility] Comment on above: Order Comment: Speci men Type: BLOOD SPECIMEN [facility] Address: [address] [place] [address] Performed By: #### 2 2314-9, 51953, 56629-3 #### [facility] CLIA [id number] [address] [place] [address] [place] Lymphocytes/100 WBC (Bld) 9.1 % Normal [facility] Comment on above: Order Comment: Speci men Type: BLOOD SPECIMEN [facility] Address: [address] [place] [address] Performed By: #### 2 2314-9, 5-3, 14907-8 #### [facility] CLIA [id number] [address] [place] [address] [place] MCH (RBC) [Entitic mass] 34.4 pg High 26.0-34.0 [facility] Comment on above: Order Comment: Speci men Type: BLOOD SPECIMEN [facility] Address: [address] [place] [address] Performed By: #### 2 2314-9, 5-3, 07850-8 #### [facility] CLIA [id number] [address] [place] [address] [place] MCHC (RBC) [Mass/Vol] 34.2 g/dL Normal 30.5-36.0 [facility] Comment on above: Order Comment: Speci men Type: BLOOD SPECIMEN [facility] Address: [address] [place] [address] Performed By: #### 2 2314-9, 5194-3, 62525-4 #### [facility] CLIA [id number] [address] [place] [address] [place] MCV (RBC) [Entitic vol] 100.5 fL High 80.0-100.0 [facility] Comment on above: Order Comment: Speci men Type: BLOOD SPECIMEN [facility] Address: [address] [place] [address] Performed By: #### 2 2314-9, 3, 82786-6 #### [facility] CLIA [id number] [address] [place] [address] [place] Monocytes (Bld) [#/Vol] 0.82 10*3/uL Normal <0.87 [facility] Comment on above: Order Comment: Speci men Type: BLOOD SPECIMEN [facility] Address: [address] [place] [address] Performed By: #### 2 2314-9, 3, 19638-3 #### [facility] CLIA [id number] [address] [place] [address] [place] Monocytes/100 WBC (Bld) 9.5 % Normal [facility] Comment on above: Order Comment: Speci men Type: BLOOD SPECIMEN [facility] Address: [address] [place] [address] Performed By: #### 2 2314-9, 3, 04150-0 #### [facility] CLIA [id number] [address] [place] [address] [place] Neutrophils (Bld) [#/Vol] 5.82 10*3/uL Normal 1.45-7.50 [facility] Comment on above: Order Comment: Speci men Type: BLOOD SPECIMEN [facility] Address: [address] [place] [address] Performed By: #### 2 2314-9, 5-3, 07255-4 #### [facility] CLIA [id number] [address] [place] [address] [place] Neutrophils/100 WBC (Bld) 67.8 % Normal [facility] Comment on above: Order Comment: Speci men Type: BLOOD SPECIMEN [facility] Address: [address] [place] [address] Performed By: #### 2 2314-9, 53, 78260-4 #### [facility] CLIA [id number] [address] [place] [address] [place] Nucleated RBC (Bld) [#/Vol] 10*3/uL Normal <0.01 [facility] Comment on above: Order Comment: Speci men Type: BLOOD SPECIMEN [facility] Address: [address] [place] [address] Performed By: #### 2 2314-9, 5-3, 00347-9 #### [facility] CLIA [id number] [address] [place] [address] [place] Nucleated RBC/100 WBC (Bld) [Ratio] 0.0 /100 WBC [facility] [facility] Comment on above: Order Comment: Speci men Type: BLOOD SPECIMEN [facility] Address: [address] [place] [address] Performed By: #### 2 2314-9, 5195-3, 32507-8 #### [facility] CLIA [id number] [address] [place] [address] [place] Platelet mean volume (Bld) [Entitic vol] 10.1 fL Normal 9.0-12.7 [facility] Comment on above: Order Comment: Speci men Type: BLOOD SPECIMEN Ordering Facility: [facility] Address: [address] [place] [address] Performed By: #### 2 2314-9, 5195-3, 92427-7 #### [facility] CLIA [id number] [address] [place] [address] [place] Platelets (Bld) [#/Vol] 245 10*3/uL Normal 150-400 [facility] Comment on above: Order Comment: Speci men Type: BLOOD SPECIMEN [facility]ing [facility] Address: [address] [place] [address] Performed By: #### 2 2314-9, 5195-3, 32644-0 #### [facility] CLIA [id number] [address] [place] [address] [place] RBC (Bld) [#/Vol] 4.36 10*6/uL Normal 4.20-6.[address] [facility] Comment on above: Order Comment: Speci men Type: BLOOD SPECIMEN [facility]ing [facility]: [facility] Address: [address] [place] [address] Performed By: #### 2 2314-9, 5195-3, 11385-5 #### [facility] CLIA [id number] [address] [place] [address] [place] WBC (Bld) [#/Vol] 8.60 10*3/uL Normal 3.70-11.[address] [facility] Comment on above: Order Comment: Speci men Type: BLOOD SPECIMEN [facility] Address: [address] [place] [address] Performed By: #### 2 2314-9, 5195-3, 40754-3 #### [facility] CLIA [id number] [address] [place] [address] [place] CNOVSPon 09-25-2024 CNOVSP Visit (SP) Office ( [facility]) -- NAZARIO HUTTON ([id number]) 1950 M Date Time Provider Department 09/25/24 [...] yo male with PMH as outlined below. CAD--OK PCI 4 stents 2021. 07/2022--Lower GI bleed. [...] due to lower GI bleed from diverticulosis) Tinter Photograph's nodules 03/15/2021 Valvular heart disease 05/18/2023 Echo [...] Father 53 Alzheimer's Disease No Family History [place] (more content not included)... Normal [facility] COPPER BLOODon 09-25-2024 Copper [Mass/Vol] 127 ug/dL Normal 70-140 [facility] Comment on above: Order Comment: Speci men Type: BLOOD SPECIMEN [facility] Address: [address] [place] [address] Result Comment: This test was developed, and its performance characteristics determined by the [facility] Department of Pathology and Laboratory Medicine. It has not been cleared or approved by the FDA. The [facility] Department of Pathology and Laboratory Medicine is regulated under CLIA as qualified to perform high-complexity testing. This test is used for clinical purposes. It should not be regarded as investigational or for research. Performed By: #### C OPPER #### [facility] CLIA [id number] [address] [place], [place] [address] [address] [place] Comprehensive metabolic 2000 panelOrdered By: Blanca Odonnell on 09-25-2024 Albumin [Mass/Vol] 4.6 g/dL 3.9 - 4.9 g/dL [facility] ALP [Catalytic activity/Vol] 162 U/L High 38 - 113 U/L [facility] ALT [Catalytic activity/Vol] 36 U/L 10 - 54 U/L [facility] Anion gap [Moles/Vol] 13 mmol/L 8 - 15 mmol/L [facility] AST [Catalytic activity/Vol] 55 U/L High 14 - 40 U/L [facility] Bilirubin [Mass/Vol] 0.7 mg/dL 0.2 - 1 .3 mg/dL [facility] Calcium [Mass/Vol] 10.3 mg/dL High 8.5 - 10. 2 mg/dL [facility] Chloride [Moles/Vol] 101 mmol/L 98 - 10 7 mmol/L [facility] CO2 [Moles/Vol] 21 mmol/L Low 22 - 30 mmol/L [facility] Creatinine [Mass/Vol] 0.67 mg/dL Low 0.73 - 1.22 mg/dL [facility] GFR/1.73 sq M.predicted among non-blacks MDRD (S/P/Bld) [Vol rate/Area] 99 mL/min/{1.73_m2} - PINF [facility] Comment on above: Estimated Glomerular [...] 101 mg/dL High 74 - 99 mg/dL [facility] Comment on above: The [place] Diabete s Association (ADA) provides guidance for [...] Standards of Medical Care in Diabetes 2016, [place] [employer] Association. Diabetes Care. 2016.39(Suppl 1). Interpretation and review of laboratory results Abnormal [facility] Potassium [Moles/Vol] 4.7 mmol/L 3.7 - 5.1 mmol/L [facility] Protein [Mass/Vol] 8.2 g/dL High 6.3 - 8.0 g/dL [facility] Sodium [Moles/Vol] 135 mmol/L Low 136 - 144 mmol/L [facility] Urea nitrogen [Mass/Vol] 14 mg/dL 9 - 24 mg/dL [facility] Comprehensive metabolic 2000 panelon 09-25-2024 Albumin [Mass/Vol] 4.6 g/dL Normal 3.9-4.9 [facility] Comment on above: Order Comment: Speci men Type: BLOOD SPECIMEN [facility] Address: [address] [place] [address] Performed By: #### C OPPER #### [facility] CLIA [id number] [address] [place] [address] [place] ALP [Catalytic activity/Vol] 162 U/L High 38-113 [facility] Comment on above: Order Comment: Speci men Type: BLOOD SPECIMEN [facility] Address: [address] [place] [address] Performed By: #### C OPPER #### [facility] CLIA [id number] [address] [place] [address] [place] ALT [Catalytic activity/Vol] 36 U/L Normal 10-54 [facility] Comment on above: Order Comment: Speci men Type: BLOOD SPECIMEN Order[facility] Address: [address] [place] [address] Performed By: #### C OPPER #### [facility] CLIA [id number] [address] [place] [address] [place] Anion gap [Moles/Vol] 13 mmol/L Normal 8-15 [facility] Comment on above: Order Comment: Speci men Type: BLOOD SPECIMEN Ordering [facility]: [facility] Address: [address] [place] [address] Performed By: #### C OPPER #### [facility] CLIA [id number] [address] [place] [address] [place] AST [Catalytic activity/Vol] 55 U/L High 14-40 [facility] Comment on above: Order Comment: Speci men Type: BLOOD SPECIMEN Order[facility] Address: [address] [place] [address] Performed By: #### C OPPER #### [facility] CLIA [id number] [address] [place] [address] [place] Bilirubin [Mass/Vol] 0.7 mg/dL Normal 0.2-1.3 [facility] Comment on above: Order Comment: Speci men Type: BLOOD SPECIMEN [facility] Address: [address] [place] [address] Performed By: #### C OPPER #### [facility] CLIA [id number] [address] [place] [address] [place] Calcium [Mass/Vol] 10.3 mg/dL High 8.5-10.2 [facility] Comment on above: Order Comment: Speci men Type: BLOOD SPECIMEN Order[facility] Address: [address] [place] [address] Performed By: #### C OPPER #### [facility] CLIA [id number] [address] [place] [address] [place] Chloride [Moles/Vol] 101 mmol/L Normal 98-107 [facility] Comment on above: Order Comment: Speci men Type: BLOOD SPECIMEN [facility] Address: [address] [place] [address] Performed By: #### C OPPER #### [facility] CLIA [id number] [address] [place] [address] [place] CO2 [Moles/Vol] 21 mmol/L Low 22-30 [facility] Comment on above: Order Comment: Speci men Type: BLOOD SPECIMEN [facility] Address: [address] [place] [address] Performed By: #### C OPPER #### [facility] CLIA [id number] [address] [place] [address] [place] Creatinine [Mass/Vol] 0.67 mg/dL Low 0.73-1.22 [facility] Comment on above: Order Comment: Speci men Type: BLOOD SPECIMEN [facility] Address: [address] [place] [address] Performed By: #### C OPPER #### [facility] CLIA [id number] [address] [place] [address] [place] Creatinine and Glomerular filtration rate.predicted panel (S/P/Bld) 99 mL/min/1.73m??? Normal >=60 [facility] Comment on above: Order Comment: Speci men Type: BLOOD SPECIMEN [facility] Address: [address] [place] [address] Result Comment: Micaela mated Glomerular Filtration Rate [...] GFR. Performed By: #### C OPPER #### [facility] CLIA [id number] [address] [place] [address] [place] Glucose [Mass/Vol] 101 mg/dL High 74-99 [facility] Comment on above: Order Comment: Speci men Type: BLOOD SPECIMEN [facility] Address: [address] [place] [address] Result Comment: The [place] Diabetes Association (ADA) provides guidance for cutoff [...] Standards of Medical Care in Diabetes 2016, [place] Diabetes Association. Diabetes Care. 2016.39(Suppl 1). Performed By: #### C OPPER #### [facility] CLIA [id number] [address] [place] [address] [place] Potassium [Moles/Vol] 4.7 mmol/L Normal 3.7-5.1 [facility] Comment on above: Order Comment: Speci men Type: BLOOD SPECIMEN Order[facility] Address: [address] [place] [address] Performed By: #### C OPPER #### [facility] CLIA [id number] [address] [place] [address] [place] Protein [Mass/Vol] 8.2 g/dL High 6.3-8.0 [facility] Comment on above: Order Comment: Speci men Type: BLOOD SPECIMEN [facility] Address: [address] [place] [address] Performed By: #### C OPPER #### [facility] CLIA [id number] [address] [place] [address] [place] Sodium [Moles/Vol] 135 mmol/L Low 136-144 [facility] Comment on above: Order Comment: Speci men Type: BLOOD SPECIMEN Order[facility] Address: [address] [place] [address] Performed By: #### C OPPER #### [facility] CLIA [id number] [address] [place] [address] [place] Urea nitrogen [Mass/Vol] 14 mg/dL Normal 9-24 [facility] Comment on above: Order Comment: Speci men Type: BLOOD SPECIMEN Order[facility] Address: [address] [place] [address] Performed By: #### C OPPER #### [facility] CLIA [id number] [address] [place] [address] [place] Folate SerPl-mCncon 09-26-19 25 Folate [Mass/Vol] 13.3 ng/mL Normal >4.7 [facility] Comment on above: Order Comment: Speci men Type: BLOOD SPECIMEN [facility] Address: [address] [place] [address] Performed By: #### 2 284-8, 2885-2, 2132-9 #### [facility] CLIA [id number] [address] [facility] IMMUNOFIXATION SCREEN, SERUM on 09-25-2024 INTERPRETATION (MPA) Atypical restricted bands are present in the IgG and kappa regions. Consistent with IgG kappa monoclonal gammopathy. Normal [facility] Comment on above: Order Comment: Speci men Type: BLOOD SPECIMEN Order[facility] Address: [address] [place] [address] Performed By: #### C OPPER #### [facility] CLIA [id number] [address] [place] [address] [place] MPA RESULT M protein is present. Abnormal No M p rotein is identified. [facility] Comment on above: Order Comment: Speci men Type: BLOOD SPECIMEN Order[facility] Address: [address] [place] [address] Performed By: #### C OPPER #### [facility] CLIA [id number] [address] [place] [address] [place] STAFF REVIEW (MPA) Reviewed by Derrick Rawls MD, Ph.D ([id number]) Normal [facility] Comment on above: Order Comment: Speci men Type: BLOOD SPECIMEN [facility] Address: [address] [place] [address] Performed By: #### C OPPER #### [facility] CLIA [id number] [address] [place] [address] [place] IMMUNOGLOBULINS,IGG,IGA,IGMo n 09-25-2024 IgA [Mass/Vol] 361 mg/dL Normal 70-400 [facility] Comment on above: Order Comment: Speci men Type: BLOOD SPECIMEN Order[facility] Address: [address] [place] [address] Performed By: #### 2 2314-9, 5195-3, 15654-9 #### [facility] CLIA [id number] [address] [place] [address] [place] IgG [Mass/Vol] 1487 mg/dL Normal 700-1600 [facility] Comment on above: Order Comment: Speci men Type: BLOOD SPECIMEN [facility] Address: [address] [place] [address] Performed By: #### 2 2314-9, 5195-3, 74293-0 #### [facility] CLIA [id number] [address] [place] [address] [place] IgM [Mass/Vol] 46 mg/dL Normal 40-230 [facility] Comment on above: Order Comment: Speci men Type: BLOOD SPECIMEN [facility] Address: [address] [place] [address] Performed By: #### 2 2314-9, 5195-3, 39249-7 #### [facility] CLIA [id number] [address] [place] [address] [place] KAPPA/NEUMANN,FREE,SERon 2024 Immunoglobulin light chains.kappa.free (S) [Mass/Vol] 35.1 mg/L High 3.3-19.4 [facility] Comment on above: Order Comment: Speci men Type: BLOOD SPECIMEN Order[facility] Address: [address] [place] [address] Result Comment: Rare ly, increased serum free light chains levels may not be detected or accurately quantified due to prozone phenomenon or in high viscosity samples using this immunoturbidimetric assay. Correlation with other laboratory results and clinical findings is recommended. The [place] Free Light Chain was performed using the Binding Site Optilite immunoturbidimetric method. Result obtained with different assay methods or kits cannot be used interchangeably. Performed By: #### 1 989-3 #### [facility] CLIA [id number] [address] [place] [address] [place] Immunoglobulin light chains.kappa/Immunogl obulin light chains.lambda (S) [Mass ratio] 1.02 Normal 0.26-1.65 [facility] Comment on above: Order Comment: Speci men Type: BLOOD SPECIMEN [facility] Address: [address] [place] [address] Performed By: #### 1 989-3 #### [facility] CLIA [id number] [address] [place] [address] [place] Immunoglobulin light chains.lambda.free [Mass/Vol] 34.4 mg/L High 5.7-26.3 [facility] Comment on above: Order Comment: Speci men Type: BLOOD SPECIMEN [facility] Address: [address] [place] [address] Result Comment: Rare ly, increased serum free [...] interchangeably. Performed By: #### 1 989-3 #### [facility] CLIA [id number] [address] [place] [address] [place] MONOCLONAL PROT UR W/INTERPo n 09-25-2024 STAFF REVIEW ([facility]) Reviewed by Derrick Rawls MD, Ph.D ([id number]) Normal [facility] Comment on above: Order Comment: Speci men Type: BLOOD SPECIMEN [facility] Address: [address] [place] [address] Performed By: #### C OPPER #### [facility] CLIA [id number] [address] [place] [address] [place] UMPA RESULT No M protein is identified. Normal No M protein is identified. [facility] Comment on above: Order Comment: Speci men Type: BLOOD SPECIMEN Order[facility] Address: [address] [place] [address] Performed By: #### C OPPER #### [facility] CLIA [id number] [address] [place] [address] [place] Methylmalonate SerPl-sCncon 09-25-2024 Methylmalonate [Moles/Vol] 0.12 umol/L Normal <=0.40 [facility] Comment on above: Order Comment: Speci men Type: BLOOD SPECIMEN [facility] Address: [address] [place] [address] Result Comment: This test was developed, and its performance characteristics determined by the [facility] Department of Pathology and Laboratory Medicine. It has not been cleared or approved by the FDA. The [facility] Department of Pathology and Laboratory Medicine is regulated under CLIA as qualified to perform high-complexity testing. This test is used for clinical purposes. It should not be regarded as investigational or for research. Performed By: #### C OPPER #### [facility] CLIA [id number] [address] [place] [address] [place] PROTEIN ELECTROPHORESIS SERU M (P)on 09-25-2024 Albumin [Mass/Vol] 4.60 g/dL Normal 3.43-5.41 [facility] Comment on above: Order Comment: Speci men Type: BLOOD SPECIMEN [facility] Address: [address] [place], [place] [address] Performed By: #### 2 284-8, 2885-2, 2132-03 #### [facility] CLIA [id number] [address] [place] [address] [place] Alpha 1 globulin Elph [Mass/Vol] 0.33 g/dL Normal 0.18-0.43 [facility] Comment on above: Order Comment: Speci men Type: BLOOD SPECIMEN [facility] Address: [address] [place] [address] Performed By: #### 2 284-8, 288-2, 2132-03 #### [facility] CLIA [id number] [address] [place] [address] [place] Alpha 2 globulin Elph [Mass/Vol] 0.76 g/dL Normal 0.42-0.98 [facility] Comment on above: Order Comment: Speci men Type: BLOOD SPECIMEN [facility] Address: [address] [place] [address] Performed By: #### 2 284-8, 288-2, 2132-03 #### [facility] CLIA [id number] [address] [place] [address] [place] Beta globulin Elph [Mass/Vol] 1.12 g/dL Normal 0.61-1.17 [facility] Comment on above: Order Comment: Speci men Type: BLOOD SPECIMEN [facility] Address: [address] [place] [address] Performed By: #### 2 284-8, 2885-2, 2132-03 #### [facility] CLIA [id number] [address] [place] [address] [place] Gamma globulin Elph [Mass/Vol] 1.28 g/dL Normal 0.53-1.51 [facility] Comment on above: Order Comment: Speci men Type: BLOOD SPECIMEN [facility] Address: [address] [place] [address] Performed By: #### 2 284-8, 2885-2, 2132-03 #### [facility] CLIA [id number] [address] INTERPRETATION COMMENT FOR PROTEIN ELECTROPHORESIS The atypical region is relatively poorly defined and may represent an unusual presentation of polyclonal immunoglobulins, but cannot rule out the presence of a low level M protein. If clinically indicated, monoclonal protein analysis and serum free light chain analysis are suggested to evaluate further for monoclonal gammopathy. Normal [facility] Comment on above: Order Comment: Medina peck Type: BLOOD SPECIMEN [facility] Address: [address] [place] [address] Performed By: #### 2 284-8, 2885-2, 2132-03 #### [facility] CLIA [id number] [address] M-PROTEIN LOCATION Normal [facility] Comment on above: Order Comment: [place] [facility] Type: BLOOD SPECIMEN [facility] Address: [address] [place] [address] Result Comment: Not Applicable. Performed By: #### 2 284-8, 2885-2, 2132-03 #### [facility] CLIA [id number] [address] Protein Fractions [Interp] An atypical region of restricted mobility is identified on protein electrophoresis. Abnormal No definitive M protein is identified on protein electrophore sis. [facility] Comment on above: Order Comment: [place] [facility] Type: BLOOD SPECIMEN [facility] Address: [address] [place] [address] Performed By: #### 2 284-8, 2885-2, 2132-03 #### [facility] CLIA [id number] [address] Protein.monoclonal Elph [Mass/Vol] 0.00 g/dL Normal <=0.00 [facility] Comment on above: Order Comment: [place] [facility] Type: BLOOD SPECIMEN [facility] Address: [address] [place] [address] Performed By: #### 2 284-8, 2885-2, 2132-03 #### [facility] [place] [facility] CLIA [id number] [address] [place] SPE STAFF REVIEW Reviewed by Derrick Rawls MD, Ph.D ([id number]) Normal [facility] Comment on above: Order Comment: Speci men Type: BLOOD SPECIMEN [facility] Address: [address] [place] [address] Performed By: #### 2 284-8, 2885-2, 9 #### [facility] CLIA [id number] [address] [place] [address] [place] Prot SerPl-mCncon 09-25-2024 Protein [Mass/Vol] 8.1 g/dL High 6.3-8.0 [facility] Comment on above: Order Comment: Speci men Type: BLOOD SPECIMEN [facility] Address: [address] [place] [address] Performed By: #### 2 284-8, 288-2, 9 #### [facility] CLIA [id number] [address] [place] Prot Ur-mCncon 09-25-2024 Protein (U) [Mass/Vol] 6 mg/dL Normal 0-20 [facility] Comment on above: Order Comment: Speci men Type: BLOOD SPECIMEN [facility] Address: [address] [place] [address] Performed By: #### 2 284-8, 2885-2, 9 #### [facility] [place] [facility] CLIA [id number] [address] [place] URINE PROTEIN ELECTROPHORESI S RANDOM (P)on 09-25-2024 Albumin Elph (U) [Mass fraction] 39.64 % Normal [facility] Comment on above: Order Comment: Speci men Type: BLOOD SPECIMEN Order[facility] Address: [address] [place] [address] Performed By: #### C OPPER #### [facility] CLIA [id number] [address] [place], [place] [address] [place] Alpha 1 globulin Elph (U) [Mass fraction] 3.33 % Normal [facility] Comment on above: Order Comment: Speci men Type: BLOOD SPECIMEN Order[facility] Address: [address] [place] [address] Performed By: #### C OPPER #### [facility] CLIA [id number] [address] [place] [address] [place] Alpha 2 globulin Elph (U) [Mass fraction] 15.07 % Normal [facility] Comment on above: Order Comment: Speci men Type: BLOOD SPECIMEN [facility] Address: [address] [place] [address] Performed By: #### C OPPER #### [facility] CLIA [id number] [address] [place] [address] [place] Beta globulin Elph (U) [Mass fraction] 22.71 % Normal [facility] Comment on above: Order Comment: Speci men Type: BLOOD SPECIMEN [facility] Address: [address] [place], [place] [address] Performed By: #### C OPPER #### [facility] CLIA [id number] [address] [place] [address] [place] Gamma globulin Elph (U) [Mass fraction] 19.25 % Normal [facility] Comment on above: Order Comment: Speci men Type: BLOOD SPECIMEN [facility] Address: [address] [place], [place] [address] Performed By: #### C OPPER #### [facility] CLIA [id number] [address] [place], [place] [address] [place] Protein Fractions Elph Kamaljit (U) [Interp] No definitive M protein is identified on protein electrophoresis. Normal No definitive M protein is identified on protein electrophore sis. [facility] Comment on above: Order Comment: Speci men Type: BLOOD SPECIMEN Order[facility] Address: [address] [place] [address] Performed By: #### C OPPER #### [facility] CLIA [id number] [address] [place], [place] [address] [facility] OF [place]ISH STAFF REVIEW (URINE ELECTRO) Reviewed by Derrick Rawls MD, Ph.D ([id number]) Normal [facility] Comment on above: Order Comment: Speci men Type: BLOOD SPECIMEN [facility] Address: [address] [place] [address] Performed By: #### C OPPER #### [facility] CLIA [id number] [address] [place], [place] [address] [place] Vit B12 SerPl-ncon 05- 025 Cobalamin (Vitamin B12) [Mass/Vol] 1008 pg/mL Normal 232-1245 [facility] Comment on above: Order Comment: Speci men Type: BLOOD SPECIMEN [facility] Address: [address] [place] [address] Performed By: #### 2 284-8, 2885-2, 2132-9 #### [facility] [place] [place] [facility] CLIA [id number] [address] [place] Abdomen Single Viewon 2024 Abdomen Single View [facility] Imaging Services [address] [place] [id number] Abdomen Single View MR#: [id number] Acct: [id number] Name: NAZARIO HUTTON Rep #: [id number] : 1950 M 73 From: Melba Garcia DO PCP: Dr. Valeriano Beasley MD Status: [facility] CLI Study: Abdomen Single View Date of Exam: 09/23/24 Exam# [id number] Ordering Dr: Geovani Barron MD PROCEDURE: ABDOMEN [...] Valeriano Beasley MD; Dr. Geovani Barron MD Child And Adolescent Therapist: Signed Normal [facility] Gastroenterology Visit Repor ton 09-19-2024 Gastroenterology Visit Report [facility] Gastroenterology [address] [place] [address] OFFICE VISIT Date of Service: 09/19/24 MR#: [id number] Acct: [id number] Name: NAZARIO HUTTON Rep #: [id number] : 1950 Provider: Dr. Shubham granados MD Age/Sex: 73/M Location: [facility] [place] Status: Signed Intake Vital Signs 06/04/24 13:31 [...] Coronary artery disease Atherosclerotic heart disease of citizen [place] coronary artery without angina pectoris ST elevation [place] (STEMI) ( 11/29/21) Hyperlipidemia Hypertension Surgical History H/O colonoscopy S/P cataract extraction Presence of coronary angioplasty implant and graft ( 11/29/21) Family History Mother COPD (chronic obstructive pulmonary disease) Lung cancer Father Heart disease Hypertension Myocardial infarction age 53 following [place]. Social History household members: none Smoking Status: [...] wheezing Cardio (more content not included)... Normal [facility] AFP, Tumor Markeron 09-17-19 25 AFP TUMOR VASILE 2.8 ng/mL Normal 0.0-8.4 [facility] Comment on above: Order Comment: Test( s) 011975-[id number], Serum or Plasmawas developed and its performance characteristicsdetermined by mobintent. It has not been cleared or approvedby the Food and Drug Administration.N Result Comment: Lore Electrochemiluminescence Immunoassay (ECLIA) Values obtained with different assay methods or kits cannot be used interchangeably. Results cannot be interpreted as absolute evidence of the presence or absence of malignant disease. This test is not interpretable in females. Performed By: #### L 500.2500, L100.0100 #### [facility] [address] [place], [address] GALLO w/ Reflex Mult Confirmon 09-17-2024 ANTI-DNA (DS)AB TNP Normal [facility] Comment on above: Performed By: #### L 3400.5105, L3200.1600, L503.7505, L509.7001 #### [facility] [address] [place], [address] ANTISCLERODERM TNP Normal [facility] Comment on above: Performed By: #### L 3400.5105, L3200.1600, L503.7505, L509.7001 #### [facility] [address] [place], [address] Anti-Smooth Muscle ABSon ANTISMOOTH MUSC 10 Units Normal 0-19 [facility] Comment on above: Order Comment: Test( s) [id number]-[id number], Serum or Plasmawas developed and its performance characteristicsdetermined by [employer]intent. It has not been cleared or approvedby the Food and Drug Administration. Result Comment: Nega tive 0 - 19 Weak positive 20 - 30 Moderate to strong positive >30 Actin Antibodies are found in 52-85% of patients with autoimmune hepatitis or chronic active hepatitis and in 22% of patients with primary biliary cirrhosis. Performed By: #### L 3400.5105, L3200.1600, L503.7505, L509.7001 #### [facility] [address] [place], [address] Ceruloplasminon 09-17-2024 CERULOPLASMIN 25.6 mg/dL Normal 16.0-31.0 [facility] Comment on above: Order Comment: Test( s) [id number]-Wtgfyn, Serum or Plasmawas developed and its performance characteristicsdetermined by mobintent. It has not been cleared or approvedby the Food and Drug Administration. Performed By: #### L 500.2500, L100.0100 #### [facility] [address] [place], [address] Copper, Serum or Plasmaon COPPER, SERUM 119 ug/dL Normal 69-132 [facility] Comment on above: Order Comment: Test( s) [id number]-Xtfdzv, Serum or Plasmawas developed and its performance characteristicsdetermined by mobintent. It has not been cleared or approvedby the Food and Drug Administration. Result Comment: Dete ction Limit = 5 Performed By: #### L 500.2500, L100.0100 #### [facility] [address] [place], [place], [id number] Haptoglobinon 09-17-2024 HAPTOGLOBIN 286 mg/dL Normal 34-355 [facility] Comment on above: Order Comment: Test( s) [id number]-Qrpepv, Serum or Plasmawas developed and its performance characteristicsdetermined by mobintent. It has not been cleared or approvedby the Food and Drug Administration. Result Comment: Perf ormed at: [address] [id number] Borderer: José Miguel Alba PhD, Phone: [phone] Performed at: [facility] [id number] Borderer: Zafar Browne MD, Phone: [phone] Performed By: #### L 3400.5105, L3200.1600, L503.7505, L509.7001 #### [facility] [address] [place], [address] L501.5101on 09-17-2024 GGTP 150 IU/L Abnormal 0-65 [facility] Comment on above: Order Comment: Test( s) [id number]-Lqpglb, Serum or Plasmawas developed and its performance characteristicsdetermined by [employer]. It has not been cleared or approvedby the Food and Drug Administration. Performed By: #### L 3400.5105, L3200.1600, L503.7505, L509.7002 #### [facility] [address] [place], [address] Anti-Mitochondrial ABon 08-25 ANTIMITOCHON AB <20.0 Normal 0.0-20.0 [facility] Comment on above: Result Comment: Nega tive 0.0 - 20.0 Equivocal 20.1 - 24.9 Positive >24.9 Mitochondrial (M2) Antibodies are found in 90-96% of patients with primary biliary cirrhosis. Performed By: #### L 3400.5105, L3200.1600, L503.8585, L509.2063 #### [facility] [address] [place], [address] GALLO serumOrdered By: Shubham Blanco on 09-12-2024 Anti-Nuclear Antibody Screen Negative Negative [facility] Comment on above: Performed at: [place] [id number] Director: José Miguel Alba PhD, Phone: [phone] Absolute lymphocyte countOrd ered By: Shubham Blanco on 09-12-2024 Lymphocytes Auto (Unsp spec) [#/Vol] 0.77 10*3/uL Low 0.83-4.51 [facility] Absolute neutrophil countOrd ered By: Shubham Blanco on 09-12-2024 Neutrophils (Bld) [#/Vol] 5.1 10*3/uL 2.0-7.7 [facility] Actin IgG QnOrdered By: Nilda Blanco on 09-12-2024 Anti-Smooth Muscle Antibody 10 Units 0-19 [facility] Comment on above: Negative 0 - 19 Weak positive 20 - 30 Moderate to strong positive >30 Actin Antibodies are found in 52-85% of patients with autoimmune hepatitis or chronic active hepatitis and in 22% of patients with primary biliary cirrhosis. Albumin to globulin ratioOrd ered By: Shubham Blanco on 09-12-2024 Albumin/Globulin [Mass ratio] 0.8 {ratio} Low 0.9-2.4 [facility] Alpha fetoprotein measuremen t as tumor markerOrdered By: Shubham Blanco on 09-12-2024 Tumor Marker Alpha Fetoprotein 2.8 ng/mL 0.0-8.4 [facility] Comment on above: [facility] El ectrochemiluminescence Immunoassay(ECLIA)Values obtained with different assay methods or kits cannotbe used interchangeably. Results cannot be interpreted asabsolute evidence of the presence or absence of malignantdisease.This test is not interpretable in females. Ammoniaon 09-12-2024 Ammonia (P) [Moles/Vol] 30.0 umol/L Normal 11-32 [facility] Comment on above: Performed By: #### L 3400.5105, L3200.1600, L503.7505, L509.7001 #### [facility] [address] [place], [place], [id number] Automated lymphocyte count a s percentage of total leukocytesOrdered By: Shubham Blanco on 09-12-2024 Lymphocytes/100 WBC Auto (Unsp spec) 9.8 % Low 19-41 [facility] Basophil percentageOrdered B y: Shubham Blanco on 09-12-2024 Basophils/100 WBC (Bld) 0.6 % 0-1 [facility] Bilirubin directOrdered By: Shubham Blanco on 09-12-2024 Bilirubin.direct [Mass/Vol] 0.18 mg/dL 0.00-0.30 [facility] Bilirubin, Directon 09-12-19 25 Bilirubin.direct [Mass/Vol] 0.18 mg/dL Normal 0.00-0.30 [facility] Comment on above: Performed By: #### L 3400.5105, L3200.1600, L503.7505, L509.7001 #### [facility] [address] [place], [address] Bilirubin, totalOrdered By: Shubham Blanco on 09-12-2024 Bilirubin [Mass/Vol] 0.70 mg/dL 0.20-1.00 [facility] Comment on above: For patients on eltr ombopag therapy, use of Dimension [place] TBIL is not recommended. Blood urea nitrogen (BUN)/cr eatinine ratioOrdered By: Shubham Blanco on 09-12-2024 Urea nitrogen/Creatinine [Mass ratio] 15.3 mg/mg 05-12 [facility] C-reactive protein measureme nt by high sensitivity methodOrdered By: Shubham Blanco on 09-12-2024 C-Reactive Protein Extended Range 10.80 mg/L High 0.0-3.0 [facility] Comment on above: C-Reactive Protein ( CRP) provides useful information for thediagnosis, therapy and monitoring of inflammatory processesand associated diseases. For the evaluation of Relative Riskfor Cardiovascular Disease, a High Sensitivity CRP (HSCRP)should be ordered. C-reactive protein measurement by high sensitivity method 10.80 mg/L High 0.0-3.0 [facility] Comment on above: C-Reactive Protein ( CRP) provides useful information for thediagnosis, therapy and monitoring of inflammatory processesand associated diseases. For the evaluation of Relative Riskfor Cardiovascular Disease, a High Sensitivity CRP (HSCRP)should be ordered. CBC W/Diff, Automatedon 08-25 Absolute Lymph 0.77 X10 3/uL Low 0.83-4.51 [facility] Comment on above: Performed By: #### L 3400.5105, L3200.1600, L503.7505, L509.7001 #### [facility] [address] [place], [address] Absolute Neut 5.1 X10 3/uL Normal 2.0-7.7 [facility] Comment on above: Performed By: #### L 3400.5105, L3200.1600, L503.7505, L509.7001 #### [facility] [address] [place], [address] Basophils/100 WBC (Bld) 0.6 % Normal 0-1 [facility] Comment on above: Performed By: #### L 3400.5105, L3200.1600, L503.7505, L509.7001 #### [facility] [address] [place], [address] Eosinophils/100 WBC (Bld) 10.9 % High 0-5 [facility] Comment on above: Performed By: #### L 3400.5105, L3200.1600, L503.7505, L509.7001 #### [facility] [address] [place], [address] Erythrocyte distribution width (RBC) [Ratio] 13.2 % Normal 11.6-14.6 [facility] Comment on above: Performed By: #### L 3400.5105, L3200.1600, L503.7505, L509.7001 #### [facility] [address] [place], [address] Hematocrit (Bld) [Volume fraction] 41.0 % Normal 40-54 [facility] Comment on above: Performed By: #### L 3400.5105, L3200.1600, L503.7505, L509.7001 #### [facility] [address] [place], [address] Hemoglobin (Bld) [Mass/Vol] 13.9 g/dL Normal 13.0-16.5 [facility] Comment on above: Performed By: #### L 3400.5105, L3200.1600, L503.7505, L509.7001 #### [facility] [address] [place], [address] IG% 0.300 Normal 0.0-0.9 [facility] Comment on above: Result Comment: IG% - Immature Granulocytes (promyelocytes, myelocytes and metamyelocytes) > 1% indicates that a LEFT SHIFT is Present. Performed By: #### L 3400.5105, L3200.1600, L503.7505, L509.7001 #### [facility] [address] [place], [address] Lymphocytes/100 WBC (Bld) 9.8 % Low 19-41 [facility] Comment on above: Performed By: #### L 3400.5105, L3200.1600, L503.7505, L509.7001 #### [facility] [address] [place], [address] MCH (RBC) [Entitic mass] 34.0 pg High 27.0-32.0 [facility] Comment on above: Performed By: #### L 3400.5105, L3200.1600, L503.7505, L509.7001 #### [facility] [address] [place], [address] MCHC (RBC) [Mass/Vol] 33.9 g/dL Normal 32-36 [facility] Comment on above: Performed By: #### L 3400.5105, L3200.1600, L503.7505, L509.7001 #### [facility] [address] [place], [address] MCV (RBC) [Entitic vol] 100.2 fL High 80-94 [facility] Comment on above: Performed By: #### L 3400.5105, L3200.1600, L503.7505, L509.7001 #### [facility] [address] [place], [address] Monocytes/100 WBC (Bld) 13.9 % High 0-10 [facility] Comment on above: Performed By: #### L 3400.5105, L3200.1600, L503.7505, L509.7001 #### [facility] [address] [place], [address] Neutrophils/100 WBC (Bld) 64.5 % Normal 47-70 [facility] Comment on above: Performed By: #### L 3400.5105, L3200.1600, L503.7505, L509.7001 #### [facility] [address] [place], [address] Nucleated RBC (Bld) [#/Vol] 0 10*3/uL Normal 0-5 [facility] Comment on above: Performed By: #### L 3400.5105, L3200.1600, L503.7505, L509.7001 #### [facility] [address] [place], [address] Platelet mean volume (Bld) [Entitic vol] 10.1 fL Normal 6.2-12.0 [facility] Comment on above: Performed By: #### L 3400.5105, L3200.1600, L503.7505, L509.7001 #### [facility] [address] [place], [address] Platelets (Bld) [#/Vol] 220 10*3/uL Normal 150-450 [facility] Comment on above: Performed By: #### L 3400.5105, L3200.1600, L503.7505, L509.7001 #### [facility] [address] [place], [address] RBC (Bld) [#/Vol] 4.09 10*6/uL Low 4.6-6.2 [facility] Comment on above: Performed By: #### L 3400.5105, L3200.1600, L503.7505, L509.7001 #### [facility] [address] [place], [address] RDW SD 48.1 fl High 35.1-43.9 [facility] Comment on above: Performed By: #### L 3400.5105, L3200.1600, L503.7505, L509.7001 #### [facility] [address] [place], [address] WBC (Bld) [#/Vol] 7.9 10*3/uL Normal 4.4-11.0 [facility] Comment on above: Performed By: #### L 3400.5105, L3200.1600, L503.7505, L509.7001 #### [facility] [address] [place], [place], [id number] CRPon 09-12-2024 C-REACTIVE PROT 10.80 mg/L High 0.0-3.0 [facility] Comment on above: Result Comment: C-Re active Protein (CRP) provides useful information for the diagnosis, therapy and monitoring of inflammatory processes and associated diseases. For the evaluation of Relative Risk for Cardiovascular Disease, a High Sensitivity CRP (HSCRP) should be ordered. Performed By: #### L 3400.5105, L3200.1600, L503.7505, L509.7001 #### [facility] [address] [place], [address] Carbon dioxide measurementOr dered By: Shubham Blanco on 09-12-2024 CO2 [Moles/Vol] 24.0 mmol/L 21.0-32.0 [facility] Centromere B antibody assayO rdered By: Shubham Blanco on 09-12-2024 Centromere B Antibody TNP [facility] Comment on above: Test not performed CeruloplasminOrdered By: Gennaro Blanco on 09-12-2024 Ceruloplasmin 25.6 mg/dL 16.0-31.0 [facility] Chloride measurementOrdered By: Shubham Blanco on 09-12-2024 Chloride [Moles/Vol] 107 mmol/L 98-107 [facility] Chromatin antibody assayOrde red By: Shubham Blanco on 09-12-2024 Antichromatin Antibodies [facility] Comment on above: Test not performed Comprehensive Metabolic Prof ilon 09-12-2024 Albumin [Mass/Vol] 3.3 g/dL Normal 3.2-5.0 [facility] Comment on above: Performed By: #### L 3400.5105, L3200.1600, L503.7505, L509.7001 #### [facility] [address] [place], [place], [address] Albumin/Globulin [Mass ratio] 0.8 {ratio} Low 0.9-2.4 [facility] Comment on above: Performed By: #### L 3400.5105, L3200.1600, L503.7505, L509.7001 #### [facility] [address] [place], [address] ALK P 134 U/L High 45-117 [facility] Comment on above: Performed By: #### L 3400.5105, L3200.1600, L503.7505, L509.7001 #### [facility] [address] [place], [address] ALT [Catalytic activity/Vol] 36 U/L Normal 16-61 [facility] Comment on above: Performed By: #### L 3400.5105, L3200.1600, L503.7505, L509.7001 #### [facility] [address] [place], [address] AST [Catalytic activity/Vol] 38 U/L High 15-37 [facility] Comment on above: Performed By: #### L 3400.5105, L3200.1600, L503.7505, L509.7001 #### [facility] [address] [place], [address] Bilirubin [Mass/Vol] 0.70 mg/dL Normal 0.20-1.00 [facility] Comment on above: Result Comment: For patients on eltrombopag therapy, use of Dimension [place] TBIL is not recommended. Performed By: #### L 3400.5105, L3200.1600, L503.7505, L509.7001 #### [facility] [address] [place], [address] BUN/CRE 15.3 RATIO Normal 10-20 [facility] Comment on above: Performed By: #### L 3400.5105, L3200.1600, L503.7505, L509.7001 #### [facility] [address] [place], [address] CA,Total 9.6 mg/dL Normal 8.5-10.1 [facility] Comment on above: Performed By: #### L 3400.5105, L3200.1600, L503.7505, L509.7001 #### [facility] [address] [place], [address] Chloride [Moles/Vol] 107 mmol/L Normal 98-107 [facility] Comment on above: Performed By: #### L 3400.5105, L3200.1600, L503.7505, L509.7001 #### [facility] [address] [place], [address] CO2 [Moles/Vol] 24.0 mmol/L Normal 21.0-32.0 [facility] Comment on above: Performed By: #### L 3400.5105, L3200.1600, L503.7505, L509.7001 #### [facility] [address] [place], [address] Creatinine [Mass/Vol] 0.72 mg/dL Normal 0.70-1.30 [facility] Comment on above: Result Comment: The validity of the calculated GFR GFRAA in patients over 70 years has not been determined. Clinical correlation is essential. Performed By: #### L 3400.5105, L3200.1600, L503.7505, L509.7001 #### [facility] [address] [place], [address] EST GFR - AA 137 mL/min Normal >60 [facility] Comment on above: Result Comment: Afri can Nigerian GFR Calc Performed By: #### L 3400.5105, L3200.1600, L503.7505, L509.7001 #### [facility] [address] [place], [address] GAP 6 Normal 5-15 [facility] Comment on above: Performed By: #### L 3400.5105, L3200.1600, L503.7505, L509.7001 #### [facility] [address] [place], [address] GFR/1.73 sq M.predicted among non-blacks MDRD (S/P/Bld) [Vol rate/Area] 113 mL/min/{1.73_m2} Normal >60 [facility] Comment on above: Result Comment: Non- GFR Calc Performed By: #### L 3400.5105, L3200.1600, L503.7505, L509.7001 #### [facility] [address] [place], [address] Globulin (S) [Mass/Vol] 4.2 g/dL Normal 2.2-4.2 [facility] Comment on above: Performed By: #### L 3400.5105, L3200.1600, L503.7505, L509.7001 #### [facility] [address] [place], [address] Glucose [Mass/Vol] 91 mg/dL Normal 74-106 [facility] Comment on above: Performed By: #### L 3400.5105, L3200.1600, L503.7505, L509.7001 #### [facility] [address] [place], [address] Potassium [Moles/Vol] 4.4 mmol/L Normal 3.5-5.1 [facility] Comment on above: Performed By: #### L 3400.5105, L3200.1600, L503.7505, L509.7001 #### [facility] [address] [place], [address] Sodium [Moles/Vol] 137 mmol/L Normal 136-145 [facility] Comment on above: Performed By: #### L 3400.5105, L3200.1600, L503.7505, L509.7001 #### [facility] [address] [place], [address] T PROT 7.5 g/dL Normal 6.4-8.2 [facility] Comment on above: Performed By: #### L 3400.5105, L3200.1600, L503.7505, L509.7001 #### [facility] [address] [place], [address] Urea nitrogen [Mass/Vol] 11 mg/dL Normal 7-18 [facility] Comment on above: Performed By: #### L 3400.5105, L3200.1600, L503.7505, L509.7001 #### [facility] [address] [place], [address] Copper, serumOrdered By: Gennaro Blanco on 09-12-2024 Serum Copper 119 ug/dL 69-132 [facility] Comment on above: Detection Limit = 5 DNA double strand Ab Qn (S)O rdered By: Shubham Blanco on 09-12-2024 Anti-Double Strand DNA Antibody TNP [facility] Comment on above: Test not performed Eosinophil percentageOrdered By: Shubham Blanco on 09-12-2024 Eosinophils/100 WBC (Bld) 10.9 % High 0-5 [facility] Erythrocyte distribution wid th ratioOrdered By: Shubham Blanco on 09-12-2024 Erythrocyte distribution width (RBC) [Ratio] 13.2 % 11.6-14.6 [facility] Erythrocyte distribution wid th standard deviationOrdered By: Shubham Blanco on 09-12-2024 Erythrocyte distribution width (RBC) [Entitic vol] 48.1 fL High 35.1-43.9 [facility] Erythrocyte distribution width (RBC) [Ratio] 48.1 fl High 35.1-43.9 [facility] Estimated glomerular filtrat ion rate (GFR) AmericanOrdered By: Shubham Blanco on 09-12-2024 Estimated GFR (MDRD) Amer 137 mL/min >60 [facility] Comment on above: GFR Calc Ferritinon 09-12-2024 Ferritin [Mass/Vol] 106 ng/mL Normal 26-388 [facility] Comment on above: Performed By: #### L 3400.5105, L3200.1600, L503.7505, L509.7001 #### [facility] [address] [place], [place], [address] Ferritin measurementOrdered By: Shubham Blanco on 09-12-2024 Ferritin [Mass/Vol] 106 ng/mL 26-388 [facility] Gamma glutamyl transferase ( GGT) measurementOrdered By: Shubham Blanco on 09-12-2024 Amylase [Catalytic activity/Vol] 150 U/L High 0-65 [facility] Glomerular filtration rate ( GFR) estimationOrdered By: Shubham Blanco on 09-12-2024 Estimated GFR (MDRD) Non-Af Amer 113 mL/min >60 [facility] Comment on above: Non- GFR Calc GFR/1.73 sq M.predicted among non-blacks MDRD (S/P/Bld) [Vol rate/Area] 113 mL/min/{1.73_m2} >60 [facility] Comment on above: Non- GFR Calc Glucose measurementOrdered B y: Shubham Blanco on 09-12-2024 Glucose [Mass/Vol] 91 mg/dL 74-106 [facility] HBV surface IgG Ql (S)Ordere d By: Shubham Blanco on 09-12-2024 Hepatitis B Surface Antibody Non-Reactive [facility] Comment on above: Non Reactive: Incons istent with immunity less than <10 mIU/mL Reactive: Consistent with immunity greater than or equal to 10 mIU/mL HaptoglobinOrdered By: Maritza Blanco on 09-12-2024 Haptoglobin 286 mg/dL 34-355 [facility] Comment on above: Performed at: - L [place] [employer] [address] [id number] Director: José Miguel Alba PhD, Phone: [phone] at: [facility] [id number] Director: Zafar Browne MD, Phone: [phone] Hematocrit Auto (Bld) [Volum e fraction]Ordered By: Shubham Blanco on 09-12-2024 Hematocrit (Bld) [Volume fraction] 41.0 % 40-54 [facility] Hemoglobin A1con 09-12-2024 HbA1c (Bld) [Mass fraction] 5.6 % Normal 3.8-5.6 [facility] Comment on above: Result Comment: Norm al < 5.7 % Prediabetic 5.7 - 6.4 % Diabetic >or= 6.5 % Please note range changes. Performed By: #### L 3400.5105, L3200.1600, L503.7505, L509.7001 #### [facility] [address] [place], [place], [id number] Hemoglobin A1c percentageOrd ered By: Shubham Blanco on 09-12-2024 HbA1c (Bld) [Mass fraction] 5.6 % 3.8-5.6 [facility] Comment on above: Normal < 5.7 % Predi abetic 5.7 - 6.4 % Diabetic >or= 6.5 % Please note range changes. Hemoglobin measurementOrdere d By: Shubham Blanco on 09-12-2024 Hemoglobin (Bld) [Mass/Vol] 13.9 g/dL 13.0-16.5 [facility] Hepatitis B Surface Antibody on 09-12-2024 HEP B Surf Ab Non-Reactive Normal [facility] Comment on above: Result Comment: Non Reactive: Inconsistent with immunity less than <10 mIU/mL Reactive: Consistent with immunity greater than or equal to 10 mIU/mL Performed By: #### L 3890.6200 #### [facility] [address] [place], [place], [address] Immature granulocytes/100 WB C Auto (Bld)Ordered By: Shubham Blanco on 09-12-2024 Immature granulocytes/100 WBC (Bld) 0.300 % 0.0-0.9 [facility] Comment on above: IG% - Immature Granu locytes (promyelocytes, myelocytes and metamyelocytes) > 1% indicates that a LEFT SHIFT is Present. International normalized rat io (INR) calculationOrdered By: Shubham Blanco on 09-12-2024 INR Coag (Bld) [Relative time] 1.0 {INR} [facility] Iron (Unsp spec) [Mass/Mass] Ordered By: Shubham Blanco on 09-12-2024 Iron [Mass/Vol] 77 ug/dL 65-175 [facility] Iron measurement (mass/mass) Ordered By: Shubham Blanco on 09-12-2024 Iron (Unsp spec) [Mass/Mass] 77 ug/dL 65-175 [facility] Iron saturation [Mass fracti on]Ordered By: Shubham Blanco on 09-12-2024 Iron Saturation 27.7 % 15.0-55.0 [facility] Iron+Iron Binding Capacityon 09-12-2024 Iron [Mass/Vol] 77 ug/dL Normal 65-175 [facility] Comment on above: Performed By: #### L 3400.5105, L3200.1600, L503.7505, L509.7001 #### [facility] [address] [place], [address] IRON SATURATION 27.7 Normal 15.0-55.0 [facility] Comment on above: Performed By: #### L 3400.5105, L3200.1600, L503.7505, L509.7001 #### [facility] [address] [place], [address] TIBC 278 ug/dL Normal 250-450 [facility] Comment on above: Performed By: #### L 3400.5105, L3200.1600, L503.7505, L509.7001 #### [facility] [address] [place], [address] Francia-1 antibody assayOrdered B y: Shubham Blanco on 09-12-2024 FRANCIA-1 Antibody TNP [facility] Comment on above: Test not performed Laboratory - Chemistry and C hemistry - challengeOrdered By: Shubham Blanco on 09-12-2024 AST [Catalytic activity/Vol] 38 U/L High 15-37 [facility] Lymphocytes Auto (Unsp spec) [#/Vol]Ordered By: Shubham Blanco on 09-12-2024 Lymphocytes (Bld) [#/Vol] 0.77 10*3/uL Low 0.83-4.51 [facility] Lymphocytes/100 WBC Auto (Un sp spec)Ordered By: Shubham Blanco on 09-12-2024 Lymphocytes/100 WBC (Bld) 9.8 % Low 19-41 [facility] MCV (mean corpuscular volume ) determinationOrdered By: Shubham Blanco on 09-12-2024 MCV (RBC) [Entitic vol] 100.2 fL High 80-94 [facility] Magnesiumon 09-12-2024 Magnesium [Mass/Vol] 2.0 mg/dL Normal 1.6-2.6 [facility] Comment on above: Performed By: #### L 3400.5105, L3200.1600, L503.7505, L509.7001 #### [facility] [address] [place], [address] Magnesium measurementOrdered By: Shubham Blanco on 09-12-2024 Magnesium [Mass/Vol] 2.0 mg/dL 1.6-2.6 [facility] Mean corpuscular hemoglobin (MCH) determinationOrdered By: Shubham Blanco on 09-12-2024 MCH (RBC) [Entitic mass] 34.0 pg High 27.0-32.0 [facility] Mean corpuscular hemoglobin concentration (MCHC) determinationOrdered By: Shubham Blanco on 09-12-2024 MCHC (RBC) [Mass/Vol] 33.9 g/dL 32-36 [facility] Mean platelet volume determi nationOrdered By: Shubham Blanco on 09-12-2024 Platelet mean volume (Bld) [Entitic vol] 10.1 fL 6.2-12.0 [facility] Mitochondria Ab Ql (S)Ordere d By: Shubhammary jo Blanco on 09-12-2024 Anti-Mitochondrial Antibody <20.0 Units 0.0-20.0 [facility] Comment on above: Negative 0.0 - 20.0 Equivocal 20.1 - 24.9 Positive >24.9Mitochondrial (M2) Antibodies are found in 90-96% ofpatients with primary biliary cirrhosis. Monocyte percentageOrdered B y: Shubham Blanco on 09-12-2024 Monocytes/100 WBC (Bld) 13.9 % High 0-10 [facility] Neutrophil percentageOrdered By: Shubham Blanco on 09-12-2024 Neutrophils/100 WBC (Bld) 64.5 % 47-70 [facility] Nucleated red blood cell per centageOrdered By: Shubham Blanco on 09-12-2024 Nucleated RBC/100 WBC (Bld) [Ratio] 0 % 0-5 [facility] Phosphoruson 09-12-2024 Phosphate [Mass/Vol] 3.4 mg/dL Normal 2.5-4.9 [facility] Comment on above: Performed By: #### L 3400.5105, L3200.1600, L503.7505, L509.7001 #### [facility] [address] [place], [address] Phosphorus measurementOrdere d By: Shubham Blanco on 09-12-2024 Phosphorus Level 3.4 mg/dL 2.5-4.9 [facility] Platelet countOrdered By: Tessa Blanco on 09-12-2024 Platelets (Bld) [#/Vol] 220 10*3/uL 150-450 [facility] Potassium measurementOrdered By: Shubham Blanco on 09-12-2024 Potassium [Moles/Vol] 4.4 mmol/L 3.5-5.1 [facility] Prothrombin Time w/INRon INR Coag (PPP) [Relative time] 1.0 {INR} Normal [facility] Comment on above: Performed By: #### L 3400.5105, L3200.1600, L503.7505, L509.7001 #### [facility] [address] [place], [address] PT Coag (PPP) [Time] 13.3 s Normal 11.7-14.9 [facility] Comment on above: Performed By: #### L 3400.5105, L3200.1600, L503.7505, L509.7001 #### [facility] [address] [place], [address] Prothrombin timeOrdered By: Shubham Blanco on 09-12-2024 PT Coag (PPP) [Time] 13.3 s 11.7-14.9 [facility] RBC Auto (Bld) [#/Vol]Ordere d By: Shubham Blanco on 09-12-2024 RBC (Bld) [#/Vol] 4.09 10*6/uL Low 4.6-6.2 [facility] PROPULSION ENGINEER abOrdered By: Shubham Goldman and on 09-12-2024 PROPULSION ENGINEER Antibody [facility] Comment on above: Test not performed SCL-70 extractable nuclear A b Qn (S)Ordered By: Shubham Blanco on 09-12-2024 Scl-70 (Scleroderma) Antibody [facility] Comment on above: Test not performed SS-A IgG antibody assayOrder ed By: Shubham Blanco on 09-12-2024 SS-A/Ro IgG Antibody [facility] Comment on above: Test not performed SS-B IgG antibody assayOrder ed By: Shubham Blanco on 09-12-2024 SS-B/La IgG Antibody [facility] Comment on above: Test not performed Serum DNA double strand anti body assay (units/volume)Ordered By: Shubham Blanco on 09-12-2024 DNA double strand Ab Qn (S) [facility] Comment on above: Test not performed Serum Scl-70 antibody assay (units/volume)Ordered By: Shubham Blanco on 09-12-2024 SCL-70 extractable nuclear Ab Qn (S) [facility] Comment on above: Test not performed Serum anion gap measurementO rdered By: Shubham Blanco on 09-12-2024 Anion gap [Moles/Vol] 6 mmol/L 5-15 [facility] Serum globulin measurementOr dered By: Shubham Blanco on 09-12-2024 Globulin (S) [Mass/Vol] 4.2 g/dL 2.2-4.2 [facility] Serum hepatitis B virus surf jose antibody IgG detectionOrdered By: Shubham Blanco on 09-12-2024 HBV surface IgG Ql (S) Non-Reactive [facility] Comment on above: Non Reactive: Incons istent with immunity less than <10 mIU/mL Reactive: Consistent with immunity greater than or equal to 10 mIU/mL Serum mitochondria antibody detectionOrdered By: Shubham Blanco on 09-12-2024 Mitochondria Ab Ql (S) <20.0 Units 0.0-20.0 [facility] Comment on above: Negative 0.0 - 20.0 Equivocal 20.1 - 24.9 Positive >24.9Mitochondrial (M2) Antibodies are found in 90-96% ofpatients with primary biliary cirrhosis. Serum or plasma actin IgG an tibody assay (units/volume)Ordered By: Shubham Blanco on 09-12-2024 Actin IgG Qn 10 Units 0-19 [facility] Comment on above: Negative 0 - 19 Weak positive 20 - 30 Moderate to strong positive >30 Actin Antibodies are found in 52-85% of patients with autoimmune hepatitis or chronic active hepatitis and in 22% of patients with primary biliary cirrhosis. Serum or plasma alanine guevara otransferase (ALT) measurementOrdered By: Shubham Blanco on 09-12-2024 ALT [Catalytic activity/Vol] 36 U/L 16-61 [facility] Serum or plasma albumin reid urement (mass/volume)Ordered By: Shubham Blanco on 09-12-2024 Albumin [Mass/Vol] 3.3 g/dL 3.2-5.0 [facility] Serum or plasma alkaline adelfo sphatase measurementOrdered By: Shubham Blanco on 09-12-2024 ALP [Catalytic activity/Vol] 134 U/L High 45-117 [facility] Serum or plasma calcium reid urement (mass/volume)Ordered By: Shubham Blanco on 09-12-2024 Calcium [Mass/Vol] 9.6 mg/dL 8.5-10.1 [facility] Serum or plasma creatinine m easurement (mass/volume)Ordered By: Shubham Blanco 09-12-2024 Creatinine [Mass/Vol] 0.72 mg/dL 0.70-1.30 [facility] Comment on above: The validity of the calculated GFR & GFRAA in patients over 70 years has not been determined. Clinical correlation is essential. Serum or plasma iron saturat ion measurement (mass fraction)Ordered By: Shubham Blanco on 09-12-2024 Iron saturation [Mass fraction] 27.7 % 15.0-55.0 [facility] Serum or plasma urea nitroge n measurement (mass/volume)Ordered By: Shubham Blanco on 09-12-2024 Urea nitrogen [Mass/Vol] 11 mg/dL 7-18 [facility] Schultz antibody assayOrdered By: Shubham Blanco on 09-12-2024 SM Antibody TNP [facility] Comment on above: Test not performed Sodium levelOrdered By: Nilda Blanco on 09-12-2024 Sodium [Moles/Vol] 137 mmol/L 136-145 [facility] TIBCOrdered By: Shubham granados on 09-12-2024 Total Iron Binding Capacity 278 ug/dL 250-450 [facility] Total proteinOrdered By: Gennaro Blanco on 09-12-2024 Protein [Mass/Vol] 7.5 g/dL 6.4-8.2 [facility] Venous blood ammonia measure mentOrdered By: Shubham Blanco on 09-12-2024 Ammonia (P) [Moles/Vol] 30.0 umol/L -32 [facility] White blood cell (WBC) count Ordered By: Shubham Blanco on 09-12-2024 WBC (Bld) [#/Vol] 7.9 10*3/uL 4.4-11.0 [facility] CT Abd/Pelvis W/WO Contrasto n 09-06-2024 CT Abd/Pelvis W/WO Contrast [facility] [address] [place] [id number] Abd/Pelvis W/WO Contrast MR#: [id number] Acct: [id number] Name: NAZARIO HUTTON Rep #: [id number] : 1950 M 73 From: Teodoro Hill MD PCP: Dr. Valeriano Beasley MD Status: REG CLI Study: CT Abd/Pelvis W/WO Contrast Date of Exam: 08/24 11/15 Exam# [id number] Ordering Dr: Shubham Blanco MD PROCEDURE: CT [...] Valeriano Beasley MD; Dr. 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 Normal [facility] KAPPA/NEUMANN,FREE,SERon 2024 Immunoglobulin light chains.kappa.free (S) [Mass/Vol] 38.8 mg/L High 3.3-19.4 [facility] Comment on above: Order Comment: Medina peck Type: BLOOD SPECIMEN Ordering Facility: [facility] Address: [address] [place] [address] Result Comment: Rare ly, increased serum free light chains levels may not be detected or accurately quantified due to prozone phenomenon or in high viscosity samples using this immunoturbidimetric assay. Correlation with other laboratory results and clinical findings is recommended. The [place] Free Light Chain was performed using the Binding Site Optilite immunoturbidimetric method. Result obtained with different assay methods or kits cannot be used interchangeably. Performed By: #### 2 284-8, 0495-2, 2132-03 #### [employer] [facility] CLIA [id number] [address] [place] [address] [place] [facility] Immunoglobulin light chains.kappa/Immunogl obulin light chains.lambda (S) [Mass ratio] 1.24 Normal 0.26-1.65 [facility] Comment on above: Order Comment: Medina peck Type: BLOOD SPECIMEN Ordering Facility: [facility] Address: [address] [place] [address] Performed By: #### 2 284-8, 2885-2, 2132-03 #### [employer] [facility] CLIA [id number] [address] [place] [address] [place] Immunoglobulin light chains.lambda.free [Mass/Vol] 31.4 mg/L High 5.7-26.3 [facility] Comment on above: Order Comment: Speci men Type: BLOOD SPECIMEN Ordering Facility: [facility] Address: [address] [place] [address] Result Comment: Rare ly, increased serum free [...] By: #### 2 284-8, 2885-2, 2132-03 #### [employer] [facility] CLIA [id number] [address] [place] [address] [place] PROTEIN ELECTROPHORESIS SERU M (P)on 08-30-2024 Albumin [Mass/Vol] 4.18 g/dL Normal 3.43-5.41 [facility] Comment on above: Order Comment: Speci men Type: BLOOD SPECIMEN Ordering Facility: [facility] Address: [address] [place] [address] Performed By: #### 2 284-8, 2885-2, 2132-03 #### [employer] [facility] CLIA [id number] [address] [place] [address] [place] Alpha 1 globulin Elph [Mass/Vol] 0.38 g/dL Normal 0.18-0.43 [facility] Comment on above: Order Comment: Speci men Type: BLOOD SPECIMEN Ordering Facility: [facility] Address: [address] [place] [address] Performed By: #### 2 284-8, 2885-2, 2132-03 #### [employer] [facility] CLIA [id number] [address] [place] Alpha 2 globulin Elph [Mass/Vol] 0.87 g/dL Normal 0.42-0.98 [facility] Comment on above: Order Comment: Speci men Type: BLOOD SPECIMEN Ordering Facility: [facility] Address: [address] [place] [address] Performed By: #### 2 284-8, 2885-2, 2132-03 #### [facility] CLIA [id number] [address] [place] Beta globulin Elph [Mass/Vol] 1.05 g/dL Normal 0.61-1.17 [facility] Comment on above: Order Comment: Speci men Type: BLOOD SPECIMEN Ordering Facility: [facility] Address: [address] [place] [address] Performed By: #### 2 284-8, 2882, 2132-03 #### [employer] [facility] CLIA [id number] [address] [place] [address] [place] [facility] Gamma globulin Elph [Mass/Vol] 1.12 g/dL Normal 0.53-1.51 [facility] Comment on above: Order Comment: Speci men Type: BLOOD SPECIMEN Ordering Facility: [facility] Address: [address] [place] [address] Performed By: #### 2 284-8, 2884-08, 2132-03 #### [facility] CLIA [id number] [address] [place] [address] [place] INTERPRETATION COMMENT FOR PROTEIN ELECTROPHORESIS The atypical region is relatively poorly defined and may represent an unusual presentation of polyclonal immunoglobulins, but cannot rule out the presence of a low level M protein. If clinically indicated, monoclonal protein analysis and serum free light chain analysis are suggested to evaluate further for monoclonal gammopathy. Normal [facility] Comment on above: Order Comment: Speci men Type: BLOOD SPECIMEN Ordering Facility: [facility] Address: [address] [place], [place] [address] Performed By: #### 2 284-8, 288-2, 2132-03 #### [facility] CLIA [id number] [address] STATES [facility] M-PROTEIN LOCATION Normal [facility] Comment on above: Order Comment: Speci men Type: BLOOD SPECIMEN Ordering Facility: [facility] Address: [address] [place] [address] Result Comment: Not Applicable. Performed By: #### 2 284-8, 2885-2, 2132-03 #### [facility] CLIA [id number] [address] [place] Protein Fractions [Interp] An atypical region of restricted mobility is identified on protein electrophoresis. Abnormal No definitive M protein is identified on protein electrophore sis. [facility] Comment on above: Order Comment: Speci men Type: BLOOD SPECIMEN Ordering Facility: [facility] Address: [address] [place] [address] Performed By: #### 2 284-8, 2885-2, 2132-03 #### [facility] CLIA [id number] [address] [place] Protein.monoclonal Elph [Mass/Vol] 0.00 g/dL Normal <=0.00 [facility] Comment on above: Order Comment: Speci men Type: BLOOD SPECIMEN Ordering Facility: [facility] Address: [address] [place] [address] Performed By: #### 2 284-8, 288-2, 2132-03 #### [facility] CLIA [id number] [address] [place] SPE STAFF REVIEW Reviewed by Lizbeth navarrete M.D. Normal [facility] Comment on above: Order Comment: Speci men Type: BLOOD SPECIMEN Ordering Facility: [facility] Address: [address] [place] [address] Performed By: #### 2 284-8, 2885-2, 2132-03 #### [facility] CLIA [id number] [address] [place] Prot SerPl-mCncon 08-30-2024 Protein [Mass/Vol] 7.6 g/dL Normal 6.3-8.0 [facility] Comment on above: Order Comment: Speci men Type: BLOOD SPECIMEN Ordering Facility: [facility] Address: [address] [place], [place] [address] Performed By: #### C OPPER #### [facility] CLIA [id number] [address] [place] [address] [place] C4 COMPLEMENTon 08-20-2024 Complement C4 [Mass/Vol] 32 mg/dL 13 - 46 mg/dL [facility] Complement C4 [Mass/Vol]on 0 08-20-2024 Interpretation and review of laboratory results Normal [facility] C4 SerPl-mCncon 08-19-2024 Complement C4 [Mass/Vol] 32 mg/dL Normal 13-46 [facility] Comment on above: Order Comment: Speci men Type: BLOOD SPECIMEN Ordering Facility: [facility] Address: 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 FOR (more content not included)... 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 Normal [facility] Emergency Department Summary on 07-18-2024 Emergency Department Summary [facility] Medical Records Department [address] [place] [id number] Emergency Department Summary 07/18/24 MR#: [id number] Acct: [id number] Name: NAZARIO HUTTON Rep #: [id number] : 1950 73 From: Stan Gilbert DO [...] drooling or wheezing. He denies any rash. [facility] Medical History High serum parathyroid hormone (PTH) Heart murmur Elevated alkaline phosphatase level Elevated PSA Diverticulosis AVM (arteriovenous malformation) of colon Vitamin D deficiency Gout Alcohol abuse Essential hypertension Chest pain Anxiety Depression Myocardial infarct Chest pain Acute blood loss anemia Bloody diarrhea Coronary artery disease Atherosclerotic heart disease of citizen [place] coronary artery without angina pectoris ST elevation [place] (STEMI) ( 11/29/21) Hyperlipidemia Hypertension Home Medications [...] disease Hypertension Myocardial infarction age 53 following [place]. Surgical History H/O colonoscopy S/P cataract extraction [...] or polyur (more content not included)... Normal [facility] Gastroenterology Visit Repor ton 06-04-2024 Gastroenterology Visit Report [facility] [address] [place] [address] OFFICE VISIT Date of Service: 06/04/24 MR#: [id number] Acct: [id number] Name: NAZARIO HUTTON Rep #: [id number] : 1950 Provider: Dr. Shubham granados MD Age/Sex: 73/M [place] [facility] [place]: Signed Intake Vital Signs 04/15/24 11:06 [...] Coronary artery disease Atherosclerotic heart disease of citizen [place] coronary artery without angina pectoris ST elevation [place] (STEMI) ( 11/29/21) Hyperlipidemia Hypertension Surgical History H/O colonoscopy S/P cataract extraction Presence of coronary angioplasty implant and graft ( 11/29/21) Family History Mother COPD (chronic obstructive pulmonary disease) Lung cancer Father Heart disease Hypertension Myocardial infarction age 53 following [place]. Social History household members: none Smoking Status: [...] movements, behavi (more content not included)... 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 Normal [facility] 05-20-2024 [facility] Telephone (RODNEY) -- NAZARIO HUTTON ([id number]) 1950 M Date Time Provider Department 05/20/24 [facility] During your visit today, we recorded the following information about you: Suzanna Dawson PA-C 05/20/2024 7:54 AM Signed Negative [...] disorder [N42.9] 03/15/2021 Medication management [Z79.899] 03/15/2021 Tinter Photograph's nodules [L28.1] 03/15/2021 Elevated PSA [R97.20] 03/17/2021 [...] fibrosis [K74.00] 05/15/2024 Encounter Status:Closed by HERON ENRIQUEZ on 05/21/24 Normal [facility] HAV IgM Ser Qlon 05-16-2024 HAV IgM Ql (S) Negative Normal Negative [facility] Comment on above: Order Comment: Speci liv Type: BLOOD SPECIMENOrdering Facility: [facility] Address: [address] [place] [address] Result Comment: No e vidence of recent infection with Hepatitis A virus. Performed By: #### 2 2314-9, 5195-3, 19878-2 ####[facility] [id number] [place] [address] [place] HBV core IgM Ser Qlon 2023 HBV core IgM Ql (S) Negative Normal Negative [facility] Comment on above: Order Comment: Speci men Type: BLOOD SPECIMEN [facility] Address: [address] [place] [address] Result Comment: No e vidence of recent infection with Hepatitis B virus. Should recent infection be suspected, repeat testing may be considered 3-4 weeks after this draw. Performed By: #### 2 2314-9, 5195-3, 85988-5 #### [facility] CLIA [id number] [address] [place] [address] [place] HBV surface Ag Ser Qlon 10-2 4-2024 HBV surface Ag Ql (S) Negative Normal Negative [facility] Comment on above: Order Comment: Speci men Type: BLOOD SPECIMEN [facility] Address: [address] [place] [address] Performed By: #### 2 2314-9, 5195-3, 35747-9 #### [facility] CLIA [id number] [address] [place] [address] [place] HCV RNA DEMARIO+probe Qnon 05-16 HCV RNA DEMARIO+probe Ql Not detected Normal Not detected [facility] Comment on above: Order Comment: Speci men Type: BLOOD SPECIMENOrdering Facility: [facility] Address: [address] [place] [address] Performed By: #### 1 1011-4 ####[facility] [id number] [address] [place] ABD Limited w/ Elastographyo n 05-14-2024 ABD Limited w/ Elastography [facility] [address] [place] [address] ABD Limited w/ Elastography MR#: [id number] Acct: [id number] Name: NAZARIO HUTTON Rep #: [id number] : 1950 M 73 From: Raymundo madison MD PCP: Dr. Valeriano Beasley MD Status: [facility] Study: ABD Limited w/ Elastography Date of Exam: 04/24 09/16 Exam# [id number] Ordering Dr: Suzanna Dawson [id number] STUDY: ABDOMINAL ULTRASOUND - RIGHT UPPER QUADRANT; ELASTOGRAPHY REASON FOR VISIT: Male, 73 years old. Elevated liver enzymes. TECHNIQUE: Ultrasound evaluation of the right upper quadrant was performed with real-time and static alvarado-scale imaging. Point quantification shear wave elastography was performed (LMN-1). TECHNICAL QUALITY: Limited. Examination limited due to [...] CC: Dr. Valeriano Beasley MD; DAVID [facility] Child [facility] Adolescent Therapist: Signed [facility] 05-14-2024 [facility] Telephone ([facility]) -- NAZARIO HUTTON ([id number]) 1950 M Date Time Provider Department 05/14/24 SUZANNA DAWSON During your visit today, we recorded the following information about you: Lupillo Moura LPN 05/14/2024 2:50 PM Signed Received results of pt's US ordered by Suzanna mosher at [facility]. 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 We need to get him in with a liver specialist. Does he wish to stay in [place] with jackson at [facility]. Or does he prefer to stay with [facility]? I also need to do a hepatitis [...] phone numbers. Dr Ines Galeano-[phone] Dr Barron [phone]. Please have pt contact them to schedule [...] [K74.00] Order(s):HEP ACUTE PANEL/RNA [SQHACRNA] Order #: [id number] FUTURE CONSULT TO GASTROENTEROLOGY [9010] Order #: [id number]: 1 FUTURE Prescriptions as of 05/20/2024 - [...] (PTH) [R79.89] 08/01/2018more content not included)... Normal [facility] Baljit 05-13-2024 [facility] Telephone ([facility]) -- NAZARIO HUTTON ([id number]) 1950 M Date Time Provider Department 05/13/24 [...] Fully Assessed Reason for Visit: Patient Question [7367] Prescriptions as of 05/13/2024 - amLODIPine (NORVASC) [...] disorder [N42.9] 03/15/2021 Medication management [Z79.899] 03/15/2021 Tinter Photograph's nodules [L28.1] 03/15/2021 Elevated PSA [R97.20] 03/17/2021 [...] Encounter Status:Closed by KIRSTEN MARC on 05/13/24 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 Normal [facility] 05-01-2024 [facility] Tele[facility] ([facility]) -- NAZARIO HUTTON ([id number]) 1950 M Date Time Provider Department 05/01/24 VALERIANO BEASLEY During your visit today, we recorded the following information about you: Alexia Waggoner LPN 05/01/2024 8:34 AM Signed Lisa with Dr. Vargas's office (cardiology) called for recent lipid lab work. Pt has an apt. Pt was identified with name and date of . FAX: [phone]. Done. Alexia Waggoner LPN Allergies As of [...] disorder [N42.9] 03/15/2021 Medication management [Z79.899] 03/15/2021 Tinter Photograph's nodules [L28.1] 03/15/2021 Elevated PSA [R97.20] 03/17/2021 [...] Status:Closed by ALEXIA WAGGONER on 05/01/24 Normal [facility] Cardiology Visit Reporton Cardiology Visit Report [facility] [address] [place] [address] OFFICE VISIT Date of Service: 04/15/24 MR#: [id number] Acct: [id number] Name: NAZARIO HUTTON Rep #: [id number] : 1950 Provider: FAUSTO moore Age/Sex: 73/M Location: [facility] Status: Signed HPI HPI History of [...] 59 L Intake Visit Reasons: 6 M Counter Checker Required: No Is patient in pain?: No [...] the past year?: No PFSH Medical History Essential hypertension Chest pain Anxiety Depression Myocardial infarct Chest pain Acute blood loss anemia Bloody diarrhea Coronary artery disease Atherosclerotic heart disease of citizen [place] coronary artery without angina pectoris ST elevation [place] (STEMI) ( 11/29/21) Hyperlipidemia Hypertension Surgical History S/P cataract extraction Presence of coronary angioplasty implant and graft ( 11/29/21) Family History Mother COPD (chronic obstructive pulmonary disease) Lung cancer Father Heart disease Hypertension Myocardial infarction age 53 following OK. Social Hi (more content not included)... Normal [facility] 25(OH)D3 [facility] 2023 25-hydroxyvitamin D3 [Mass/Vol] 27.1 ng/mL Low 31.0-80.0 [facility] Comment on above: Order Comment: Speci men Type: BLOOD SPECIMEN [facility] Address: [address] [place] [address] Result Comment: Clas sification of 25 [place] Vitamin D status: Deficiency/Insufficiency: < or = 30 ng/ml. Sufficiency/Optimal Levels: 31-80 ng/mL Toxicity: > 100 ng/mL. Test performed by chemiluminescent immunoassay. Performed By: #### 1 989-3 #### [facility] CLIA [id number] [address] [place] [address] [place] CBC W Auto Differential pane l (Bld)on 04-04-2024 Basophils (Bld) [#/Vol] 0.06 10*3/uL Normal <0.11 [facility] Comment on above: Order Comment: Speci men Type: BLOOD SPECIMEN [facility] Address: [address] [place] [address] Performed By: #### 2 2314-9, 5194-3, 66228-4 #### [facility] CLIA [id number] [address] [place] [address] [place] Basophils/100 WBC (Bld) 0.7 % Normal [facility] Comment on above: Order Comment: Speci men Type: BLOOD SPECIMEN [facility] Address: [address] [place] [address] Performed By: #### 2 2314-9, 3, 11115-7 #### [facility] CLIA [id number] [address] [place] [address] [place] Differential cell count method Nom (Bld) Auto Normal [facility] Comment on above: Order Comment: Speci men Type: BLOOD SPECIMEN [facility] Address: [address] [place] [address] Performed By: #### 2 2314-9, 3, 61538-9 #### [facility] [id number] [address] [place] [address] [place] Eosinophils (Bld) [#/Vol] 0.43 10*3/uL Normal <0.46 [facility] Comment on above: Order Comment: Speci men Type: BLOOD SPECIMEN [facility] Address: [address] [place] [address] Performed By: #### 2 2314-9, 5195-3, 96034-0 #### [facility] CLIA [id number] [address] [place], [place] [address] [place] Eosinophils/100 WBC (Bld) 5.1 % Normal [facility] Comment on above: Order Comment: Speci men Type: BLOOD SPECIMEN [facility] Address: [address] [place] [address] Performed By: #### 2 2314-9, 5194-3, 98642-4 #### [facility] CLIA [id number] [address] [place] [address] [place] Erythrocyte distribution width (RBC) [Ratio] 13.1 % Normal 11.5-15.0 [facility] Comment on above: Order Comment: Speci men Type: BLOOD SPECIMEN [facility] Address: [address] [place] [address] Performed By: #### 2 2314-9, 5194-3, 40227-2 #### [facility] [id number] [address] [place] [address] [place] Hematocrit (Bld) [Volume fraction] 39.0 % Normal 39.0-51.0 [facility] Comment on above: Order Comment: Speci men Type: BLOOD SPECIMEN [facility] Address: [address] [place] [address] Performed By: #### 2 2314-9, 3, 33157-1 #### [facility] CLIA [id number] [address] [place], [place] [address] [place] Hemoglobin (Bld) [Mass/Vol] 12.8 g/dL Low 13.0-17.0 [facility] Comment on above: Order Comment: Speci men Type: BLOOD SPECIMEN [facility] Address: [address] [place] [address] Performed By: #### 2 2314-9, 5-3, 38899-1 #### [facility] CLIA [id number] [address] [place] [address] [place] Immature granulocytes (Bld) [#/Vol] 0.15 10*3/uL High <0.10 [facility] Comment on above: Order Comment: Speci men Type: BLOOD SPECIMEN [facility] Address: [address] [place] [address] Performed By: #### 2 2314-9, 5-3, 23470-0 #### [facility] CLIA [id number] [address] [place] [address] [place] Immature granulocytes/100 WBC (Bld) 1.8 % Normal [facility] Comment on above: Order Comment: Speci men Type: BLOOD SPECIMEN [facility] Address: [address] [place] [address] Performed By: #### 2 2314-9, 53, 14997-8 #### [facility] CLIA [id number] [address] [place] [address] [place] Lymphocytes (Bld) [#/Vol] 0.64 10*3/uL Low 1.00-4.00 [facility] Comment on above: Order Comment: Speci men Type: BLOOD SPECIMEN [facility] Address: [address] [place] [address] Performed By: #### 2 2314-9, 53, 70614-8 #### [facility] CLIA [id number] [address] [place] [address] [place] Lymphocytes/100 WBC (Bld) 7.6 % Normal [facility] Comment on above: Order Comment: Speci men Type: BLOOD SPECIMEN [facility] Address: [address] [place] [address] Performed By: #### 2 2314-9, 5-3, 89389-9 #### [facility] [id number] [address] [place] [address] [place] MCH (RBC) [Entitic mass] 34.9 pg High 26.0-34.0 [facility] Comment on above: Order Comment: Speci men Type: BLOOD SPECIMEN [facility] Address: [address] [place] [address] Performed By: #### 2 2314-9, 5195-3, 25043-2 #### [facility]IA [id number] [address] [place] [address] [place] MCHC (RBC) [Mass/Vol] 32.8 g/dL Normal 30.5-36.0 [facility] Comment on above: Order Comment: Speci men Type: BLOOD SPECIMEN [facility] Address: [address] [place] [address] Performed By: #### 2 2314-9, 5195-3, 81893-6 #### [facility] CLIA [id number] [address] [place] [address] [place] MCV (RBC) [Entitic vol] 106.3 fL High 80.0-100.0 [facility] Comment on above: Order Comment: Speci men Type: BLOOD SPECIMEN [facility] Address: [address] [place] [address] Performed By: #### 2 2314-9, 5195-3, 84996-8 #### [facility]IA [id number] [address] [place] [address] [place] Monocytes (Bld) [#/Vol] 0.96 10*3/uL High <0.87 [facility] Comment on above: Order Comment: Speci men Type: BLOOD SPECIMEN [facility] Address: [address] [place] [address] Performed By: #### 2 2314-9, 5195-3, 80144-5 #### [facility] CLIA [id number] [address] [place] [address] [place] Monocytes/100 WBC (Bld) 11.4 % Normal [facility] Comment on above: Order Comment: Speci men Type: BLOOD SPECIMEN [facility] Address: [address] [place] [address] Performed By: #### 2 2314-9, 5195-3, 47192-9 #### [facility] CLIA [id number] [address] [place] [address] [place] Neutrophils (Bld) [#/Vol] 6.17 10*3/uL Normal 1.45-7.50 [facility] Comment on above: Order Comment: Speci men Type: BLOOD SPECIMEN [facility] Address: [address] [place] [address] Performed By: #### 2 2314-9, 5195-3, 23883-0 #### [facility] CLIA [id number] [address] [place] [address] [place] Neutrophils/100 WBC (Bld) 73.4 % Normal [facility] Comment on above: Order Comment: Speci men Type: BLOOD SPECIMEN [facility] Address: [address] [place] [address] Performed By: #### 2 2314-9, 5195-3, 52730-3 #### [facility]IA [id number] [address] [place] [address] [place] Nucleated RBC (Bld) [#/Vol] 10*3/uL Normal <0.01 [facility] Comment on above: Order Comment: Speci men Type: BLOOD SPECIMEN [facility] Address: [address] [place] [address] Performed By: #### 2 2314-9, 5195-3, 28344-1 #### [facility] CLIA [id number] [address] [place] [address] [place] Nucleated RBC/100 WBC (Bld) [Ratio] 0.0 /100 WBC Normal [facility] Comment on above: Order Comment: Speci men Type: BLOOD SPECIMEN [facility] Address: [address] [place] [address] Performed By: #### 2 2314-9, 5195-3, 16183-3 #### [facility] CLIA [id number] [address] [place] [address] [place] Platelet mean volume (Bld) [Entitic vol] 10.5 fL Normal 9.0-12.7 [facility] Comment on above: Order Comment: Speci men Type: BLOOD SPECIMEN [facility] Address: [address] [place] [address] Performed By: #### 2 2314-9, 5195-3, 99809-1 #### [facility] CLIA [id number] [address] [place] [address] [place] Platelets (Bld) [#/Vol] 193 10*3/uL Normal 150-400 [facility] Comment on above: Order Comment: Speci men Type: BLOOD SPECIMEN [facility] Address: [address] [place] [address] Performed By: #### 2 2314-9, 5195-3, 82959-9 #### [facility] CLIA [id number] [address] [place] [address] [place] RBC (Bld) [#/Vol] 3.67 10*6/uL Low 4.20-6.[address] [facility] Comment on above: Order Comment: Speci men Type: BLOOD SPECIMEN [facility] Address: [address] [place] [address] Performed By: #### 2 2314-9, 5195-3, 47771-7 #### [facility] CLIA [id number] [address] [place] [address] [place] WBC (Bld) [#/Vol] 8.41 10*3/uL Normal 3.70-11.[address] [facility] Comment on above: Order Comment: Speci men Type: BLOOD SPECIMEN [facility] Address: [address] [place] [address] Performed By: #### 2 2314-9, 5195-3, 29594-6 #### [facility] CLIA [id number] [address] [place] [address] CNOVon 04-04-2024 CNOV Office Visit (FAMPWS ) -- NAZARIO HUTTON ([id number]) 1950 Date Time Provider Department 04/04/24 11:40 AM NI SAUCEDA During your visit today, we recorded the following information about you: Pulse Respiration Blood pressure Weight 58/minute 14/minute 155/84 92.5 kg Ni Sauceda APRN.[facility] 04/04/2024 11:56 AM Signed Chief Complaint Patient presents with: ER F/U HPI Nazariobrissa Hutton is a 73 year old male who presents here today for Above Complaints.. Patient presents for ER follow up. Patient seen in [facility] for angioedema. Losartan d/c'd by Dr. [...] to lower GI bleed from diverticulosis) 03/15/2021: Tinter Photograph's nodules 05/18/2023: Valvular heart disease Comment: Echo [...] OF SYS (more content not included)... Normal [facility] Comprehensive metabolic 2000 panelon 04-04-2024 Albumin [Mass/Vol] 3.8 g/dL Low 3.9-4.9 [facility] Comment on above: Order Comment: Speci men Type: BLOOD SPECIMEN [facility] Address: [address] [place] [address] Performed By: #### 1 989-3 #### [facility] CLIA [id number] [address] [place] [address] [place] [address] [place] ALP [Catalytic activity/Vol] 110 U/L Normal 38-113 [facility] Comment on above: Order Comment: Speci men Type: BLOOD SPECIMEN [facility] Address: [address] [place] [address] Performed By: #### 1 989-3 #### [facility] CLIA [id number] [address] [place] [address] [place] ALT [Catalytic activity/Vol] 38 U/L Normal 10-54 [facility] Comment on above: Order Comment: Speci men Type: BLOOD SPECIMEN [facility] Address: [address] [place] [address] Performed By: #### 1 989-3 #### [facility] CLIA [id number] [address] [place] [address] [place] Anion gap [Moles/Vol] 11 mmol/L Normal 8-15 [facility] Comment on above: Order Comment: Speci men Type: BLOOD SPECIMEN [facility] Address: [address] [place] [address] Performed By: #### 1 989-3 #### [facility] CLIA [id number] [address] [place] [address] [place] AST [Catalytic activity/Vol] 47 U/L High 14-40 [facility] Comment on above: Order Comment: Speci men Type: BLOOD SPECIMEN [facility] Address: [address] [place] [address] Performed By: #### 1 989-3 #### [facility] CLIA [id number] [address] [place] [address] [place] Bilirubin [Mass/Vol] 0.4 mg/dL Normal 0.2-1.3 [facility] Comment on above: Order Comment: Speci men Type: BLOOD SPECIMEN [facility] Address: [address] [place] [address] Performed By: #### 1 989-3 #### [facility] CLIA [id number] [facility] [place] [address] [place] Calcium [Mass/Vol] 9.7 mg/dL Normal 8.5-10.2 [facility] Comment on above: Order Comment: Speci men Type: BLOOD SPECIMEN [facility] Address: [address] [place] [address] Performed By: #### 1 989-3 #### [facility] CLIA [id number] [address] [place] [address] [place] Chloride [Moles/Vol] 109 mmol/L High 98-107 [facility] Comment on above: Order Comment: Speci men Type: BLOOD SPECIMEN [facility] Address: [address] [place] [address] Performed By: #### 1 989-3 #### [facility] CLIA [id number] [address] [place] [address] [place] CO2 [Moles/Vol] 22 mmol/L Normal 22-30 [facility] Comment on above: Order Comment: Speci men Type: BLOOD SPECIMEN [facility] Address: [address] [place] [address] Performed By: #### 1 989-3 #### [facility] CLIA [id number] [address] [place] [address] [place] Creatinine [Mass/Vol] 0.74 mg/dL Normal 0.73-1.22 [facility] Comment on above: Order Comment: Speci men Type: BLOOD SPECIMEN [facility] Address: [address] [place] [address] Performed By: #### 1 989-3 #### [facility] CLIA [id number] [address] [place] [address] [place] Creatinine and Glomerular filtration rate.predicted panel (S/P/Bld) 96 mL/min/1.73m??? Normal >=60 [facility] Comment on above: Order Comment: Medina peck Type: BLOOD SPECIMEN [facility] Address: [address] [place] [address] Result Comment: Micaela mated Glomerular Filtration Rate [...] GFR. Performed By: #### 1 989-3 #### [facility] CLIA [id number] [address] [place] [address] [place] Glucose [Mass/Vol] 94 mg/dL Normal 74-99 [facility] Comment on above: Order Comment: Medina peck Type: BLOOD SPECIMEN [facility] Address: [address] [place] [address] Result Comment: The [place] Diabetes Association (ADA) provides guidance for cutoff [...] Standards of Medical Care in Diabetes 2016, [place] [employer]. Diabetes Care. 2016.39(Suppl 1). Performed By: #### 1 989-3 #### [facility] CLIA [id number] [address] [place] [address] [place] Potassium [Moles/Vol] 4.6 mmol/L Normal 3.7-5.1 [facility] Comment on above: Order Comment: Speci men Type: BLOOD SPECIMEN [facility] Address: [address] [place] [address] Performed By: #### 1 989-3 #### [facility] CLIA [id number] [address] [place] [address] [place] Protein [Mass/Vol] 7.1 g/dL Normal 6.3-8.0 [facility] Comment on above: Order Comment: Speci men Type: BLOOD SPECIMEN [facility] Address: [address] [place] [address] Performed By: #### 1 989-3 #### [facility] CLIA [id number] [address] [place] [address] [place] Sodium [Moles/Vol] 142 mmol/L Normal 136-144 [facility] Comment on above: Order Comment: Speci men Type: BLOOD SPECIMEN [facility] Address: [address] [place] [address] Performed By: #### 1 989-3 #### [facility] CLIA [id number] [address] [place] [address] [place] Urea nitrogen [Mass/Vol] 15 mg/dL Normal 9-24 [facility] Comment on above: Order Comment: Speci men Type: BLOOD SPECIMEN [facility] Address: [address] [place] [address] Performed By: #### 1 989-3 #### [facility] CLIA [id number] [address] [place] [address] [place] Free PSA [Mass/Vol]on 2023 Free PSA/Total PSA [Mass fraction] 24 % Normal [facility] Comment on above: Order Comment: Speci men Type: BLOOD SPECIMEN [facility] Address: [address] [place] [address] Result Comment: Tota l and free PSA test methodology used is the Electrochemiluminescence Immunoassay by Reema Papriika. Total or free PSA values by differing [...] 15.8% Performed By: #### 1 989-3 #### [facility] CLIA [id number] [address] [place] [address] [place] Prostate specific Ag [Mass/Vol] 5.42 ng/mL High <2.60 [facility] Comment on above: Order Comment: Speci men Type: BLOOD SPECIMEN [facility] Address: [address] [place] [address] Result Comment: Brynn lam PSA test methodology used is the Electrochemiluminescence Immunoassay by [employer]. Total PSA values by differing methodologies [...] Mancuso M.D., M.P.H., Lance Garber M.D., Ph.D., Partia Hartley M.D., Raquel Ahmadi, M.P.H., Lisseth Rush, Sc.D. Effect of Verification Bias on Screening for Prostate Cancer by Measurement of Prostatic Specific Antigen. N Engl J Med 2003,349:335-42. Performed By: #### 1 989-3 #### [facility] CLIA [id number] [address] [place] [address] [place] [facility] LIPID PANEL, NONFASTINGon Cholesterol [Mass/Vol] 146 mg/dL Normal <200 [facility] Comment on above: Order Comment: Speci men Type: BLOOD SPECIMEN [facility] Address: [address] [place] [address] Result Comment: <200 mg/dL, Desirable 200-239 mg/dL, Borderline high >239 mg/dL, High Performed By: #### 1 989-3 #### [facility] CLIA [id number] [address] [place] [address] [place] HDL CHOLESTEROL, NF 55 mg/dL Normal >[address] [facility] Comment on above: Order Comment: Speci men Type: BLOOD SPECIMEN [facility]: [facility] Address: [address] [place] [address] Result Comment: 40-5 9 mg/dL, Acceptable >59 mg/dL, High: Negative risk factor for coronary heart disease <40 mg/dL, Low: Positive risk factor for coronary heart disease Performed By: #### 1 989-3 #### [facility] CLIA [id number] [address] [place] [address] OF [facility] LDL CHOLESTEROL, NF 74 mg/dL Normal <[address] [facility] Comment on above: Order Comment: Speci men Type: BLOOD SPECIMEN Ordering Facility: [facility] Address: [address] [place] [address] Result Comment: <100 mg/dL, Optimal 100-129 mg/dL, Near optimal/above optimal 130-159 mg/dL, Borderline high 160-189 mg/dL, High >189 mg/dL, Very high Secondary prevention optimal LDL Cholesterol levels are recommended to be < 70 mg/dL Performed By: #### 1 989-3 #### [facility] CLIA [id number] [address] [place] [address] [place] LDL/HDL RATIO, NF 1.35 mg/dL Normal <2.54 [facility] Comment on above: Order Comment: Kristii men Type: BLOOD SPECIMEN Ordering Facility: [facility] Address: [address] [place] [address] Result Comment: Rhonda barnes: 1. National Cholesterol Education Program ATP III Guideline At-A-Glance Quick Desk Reference: National Heart, Lung, and Blood [place]. National Institutes of Health. 2001: NIH Publication No. 01-3305. 2. An International Atherosclerosis Society position paper: global recommendations for the management of dyslipidemia: executive summary, Atherosclerosis. 2014: 232(2):410-413. Performed By: #### 1 989-3 #### [facility] CLIA [id number] [address] [place] [address] [place] NON HDL CHOL, NF 91 mg/dL Normal <130 [facility] Comment on above: Order Comment: Medina peck Type: BLOOD SPECIMEN Order[facility]: [facility] Address: [address] [place] [address] Result Comment: <130 mg/dL, Optimal 130-159 mg/dL, Near optimal/above optimal 160-189 mg/dL, Borderline high 190-219 mg/dL, High >219 mg/dL, Very high Secondary prevention optimal non HDL Cholesterol levels are recommended to be <100 mg/dL Performed By: #### 1 989-3 #### [facility] CLIA [id number] [address] [place] [address] [place] T CHOL/HDL RATIO NF 2.65 mg/dL Normal <5.[address] [facility] Comment on above: Order Comment: Kristii men Type: BLOOD SPECIMEN Ordering Facility: [facility] Address: [address] [place] [address] Performed By: #### 1 989-3 #### [facility] CLIA [id number] [address] [place] [address] [place] TRIGLYCERIDES, NF 83 mg/dL Normal <150 [facility] Comment on above: Order Comment: Kristii men Type: BLOOD SPECIMEN Ordering [facility]: [facility] Address: [address] [place] [address] Result Comment: <150 mg/dL, Normal 150-199 mg/dL, Borderline high 200-499 mg/dL, High >499 mg/dL, Very high Performed By: #### 1 989-3 #### [facility] CLIA [id number] [address] [place] [address] [place] VLDL CHOLESTEROL, NF 17 mg/dL Normal <30 [facility] Comment on above: Order Comment: Speci men Type: BLOOD SPECIMEN Ordering [facility]: [facility] Address: [address] [place] [address] Performed By: #### 1 989-3 #### [facility] CLIA [id number] [address] [place] [address] [place] Urate SerPl-mCncon 4 Urate [Mass/Vol] 5.3 mg/dL Normal 4.0-8.1 [facility] Comment on above: Order Comment: Speci men Type: BLOOD SPECIMEN Order[facility]: [facility] Address: [address] [place] [address] Performed By: #### 1 989-3 #### [facility] CLIA [id number] [address] [place] [address] [place] Urinalysis complete panel (U )on 04-04-2024 Bacteria LM.HPF (Urine sed) [#/Area] Negative Normal Negative [facility] Comment on above: Order Comment: Speci men Type: BLOOD SPECIMEN Ordering [facility]: [facility] Address: [address] [place] [address] Performed By: #### C OPPER #### [facility] CLIA [id number] [address] [place] [address] [place] Bilirubin Ql (U) Negative Normal Negative [facility] Comment on above: Order Comment: Speci men Type: BLOOD SPECIMEN Ordering [facility]: [facility] Address: [address] [place] [address] Performed By: #### C OPPER #### [facility] CLIA [id number] [address] [place] [address] [place] Clarity (Unsp spec) Clear Normal Clear [facility] Comment on above: Order Comment: Speci men Type: BLOOD SPECIMEN Ordering Facility: [facility] Address: [address] [place] [address] Performed By: #### C OPPER #### [facility] CLIA [id number] [address] [place] [address] [place] Color (U) Yellow Normal Yellow [facility] Comment on above: Order Comment: Speci men Type: BLOOD SPECIMEN Ordering [facility]: [facility] Address: [address] [place] [address] Performed By: #### C OPPER #### [facility] CLIA [id number] [address] [place] [address] [place] Epithelial cells LM.HPF (Urine sed) [#/Area] None Seen Normal [facility] Comment on above: Order Comment: Speci men Type: BLOOD SPECIMEN Order[facility]: [facility] Address: [address] [place] [address] Performed By: #### C OPPER #### [facility] CLIA [id number] [address] [place] [address] [place] Glucose Test strip (U) [Mass/Vol] Negative Normal Negative [facility] Comment on above: Order Comment: Speci men Type: BLOOD SPECIMEN Ordering Facility: [facility] Address: [address] [place] [address] Performed By: #### C OPPER #### [facility] CLIA [id number] [address] [place], [place] [address] [place] Hemoglobin Ql (U) Negative Normal Negative [facility] Comment on above: Order Comment: Speci men Type: BLOOD SPECIMEN Ordering Facility: [facility] Address: [address] [place] [address] Performed By: #### C OPPER #### [facility] CLIA [id number] [address] [place] [address] [place] Hyaline casts (Urine sed) [#/Area] 4-10 /LPF Abnormal 0 /LPF [facility] Comment on above: Order Comment: Speci men Type: BLOOD SPECIMEN Order[facility] Address: [address] [place] [address] Performed By: #### C OPPER #### [facility] CLIA [id number] [address] [place] [address] [place] Ketones Ql (U) Negative Normal Negative [facility] Comment on above: Order Comment: Speci men Type: BLOOD SPECIMEN Order[facility] Address: [address] [place] [address] Performed By: #### C OPPER #### [facility] CLIA [id number] [address] [place] [address] [place] Leukocyte esterase Test strip Ql (U) 1+ Abnormal Negative [facility] Comment on above: Order Comment: Speci men Type: BLOOD SPECIMEN Order[facility] Address: [address] [place] [address] Performed By: #### C OPPER #### [facility] CLIA [id number] [address] [place] [address] [place] Nitrite Ql (U) Negative Normal Negative [facility] Comment on above: Order Comment: Speci men Type: BLOOD SPECIMEN Order[facility] Address: [address] [place] [address] Performed By: #### C OPPER #### [facility] CLIA [id number] [address] [place], [place] [address] [place] pH (U) 5.5 [pH] Normal <8.5 [facility] Comment on above: Order Comment: Speci men Type: BLOOD SPECIMEN Order[facility] Address: [address] [place] [address] Performed By: #### C OPPER #### [facility] CLIA [id number] [address] [place] [address] [place] Protein (U) [Mass/Vol] Negative Normal Negative [facility] Comment on above: Order Comment: Speci men Type: BLOOD SPECIMEN Order[facility]: [facility] Address: [address] [place] [address] Performed By: #### C OPPER #### [facility] CLIA [id number] [address] [place] [address] [place] RBC LM.HPF (Urine sed) [#/Area] 0-2 /HPF Normal 0-2 /HPF [facility] Comment on above: Order Comment: Speci men Type: BLOOD SPECIMEN Order[facility] Address: [address] [place] [address] Performed By: #### C OPPER #### [facility] CLIA [id number] [address] [place] [address] [place] Specific gravity (U) [Rel density] 1.019 Normal 1.005-1.030 [facility] Comment on above: Order Comment: Speci men Type: BLOOD SPECIMEN Ordering [facility]: [facility] Address: [address] [place] [address] Performed By: #### C OPPER #### [facility] CLIA [id number] [address] [place] [address] [place] Urobilinogen Ql (U) 0.2 EU/dL Normal 0.2-1.0 EU/dL [facility] Comment on above: Order Comment: Speci men Type: BLOOD SPECIMEN Ordering [facility]: [facility] Address: [address] [place] [address] Performed By: #### C OPPER #### [facility] CLIA [id number] [address] [place] [address] [place] WBC LM.HPF (Urine sed) [#/Area] 0-5 /HPF Normal 0-5 /HPF [facility] Comment on above: Order Comment: Speci men Type: BLOOD SPECIMEN Ordering [facility]: [facility] Address: [address] [place] [address] Performed By: #### C OPPER #### [facility] CLIA [id number] [address] [place] [address] [place] Vit B12 SerPl-ncon 024 Cobalamin (Vitamin B12) [Mass/Vol] 905 pg/mL Normal 232-1245 [facility] Comment on above: Order Comment: Speci men Type: BLOOD SPECIMEN [facility]: [facility] Address: [address] [place] [address] Performed By: #### 2 284-8, 2885-2, 2132-9 #### [facility] [place] [place] [facility] CLIA [id number] [address] STATES OF [facility] CNPNon 04-01-2024 CNPN Telephone (FAMPWS) -- NAZARIO HUTTON ([id number]) 1950 Date Time Provider Department 04/01/24 GANESH [facility] During your visit today, we recorded the [...] disorder [N42.9] 03/15/2021 Medication management [Z79.899] 03/15/2021 Tinter Photograph's nodules [L28.1] 03/15/2021 Elevated PSA [R97.20] 03/17/2021 [...] Encounter Status:Closed by PINEDA STYLES on 04/01/24 [facility] CNOVon 03-29-2024 CNOV Office Visit (UCWSTR ) -- NAZARIO HUTTON ([id number]) 1950 M Date Time Provider Department 03/29/24 11:15 AM [facility] During your visit today, we recorded the [...] agreeable to this and will go to [facility]. Offered ambulance transport-he refused. He appears stable to self-transport. Report sent via ER passport. 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 Allergies As of Date: 03/29/2024 Noted Allergy [...] disorder [N42.9] 03/15/2021 Medication management [Z79.899] 03/15/2021 Tinter Photograph's nodules [L28.1] 03/15/2021 Elevated PSA [R97.20] 03/17/2021 [...] Status:Closed by [facility] on 03/29/24 Normal [facility] Emergency Department Summary on 03-29-2024 Emergency Department Summary [facility] Medical Records Department [address] [place] [address] Emergency Department Summary 03/29/24 MR#: [id number] Acct: [id number] Name: NAZARIO HUTTON Rep #: [id number] : 1950 73 From: Luis Frank MD [...] in years. No exacerbating or alleviating factors. [facility] Medical History Essential hypertension Chest pain Anxiety Depression Myocardial infarct Chest pain Acute blood loss anemia Bloody diarrhea Coronary artery disease Atherosclerotic heart disease of citizen [place] coronary artery without angina pectoris ST elevation [place] (STEMI) ( 11/29/21) Hyperlipidemia Hypertension Home Medications [...] disease Hypertension Myocardial infarction age 53 following [place]. Surgical History S/P cataract extraction Presence of [...] nonlateralizing. C (more content not included)... Normal [facility] CREATININE [facility] 02-08-2024 Creatinine [Mass/Vol] 0.76 mg/dL Normal 0.73-1.22 [facility] Comment on above: Order Comment: Medina peck Type: BLOOD SPECIMEN [facility] Address: [address] [place] [address] Performed By: #### 1 989-3 #### [facility] CLIA [id number] [address] [place], [place] [address] [address] [place] Creatinine and Glomerular filtration rate.predicted panel (S/P/Bld) 95 mL/min/1.73m??? Normal >=60 [facility] Comment on above: Order Comment: Speci liv Type: BLOOD SPECIMEN [facility] Address: [address] [place] [address] Result Comment: Micaela mated Glomerular Filtration Rate [...] GFR. Performed By: #### 1 989-3 #### [facility] CLIA [id number] [address] [place] [address] [place] [address] Neck W contrast Tamara 01-21 * * *Final Report* * * DATE OF EXAM: Feb 08 2024 3:51PM [facility] 0024 - CTA NECK W IVCON / PROCEDURE REASON: Occlusion and stenosis of unspecified carotid artery * * * * Physician Interpretation * * * * EXAMINATION: CTA HEAD W IVCON, CTA NECK W IVCON HISTORY: Occlusion and stenosis of unspecified carotid artery - - - OtherCarotid stenosis - concern for such on MRA brain with rad recommending further e (accession [id number]), Carotid Stenosis (accession [id number]) - Carotid artery stenosis, Carotid stenosis - [...] Short segment mild narrowing of the LEFT GRINDER OPERATOR AUT[employer]ATIC P2 segment No abrupt vessel occlusion, intraluminal filling defect, high-grade stenosis, or aneurysm in the posterior intracranial circulation. Opacified dural venous sinuses and major deep and superficial draining veins are patent. Spray Blender (topogram) images: No additional findings. DIVISION OF RADIOLOGY Provider, [facility] - 02/08/2024 * * *Final Report* * * DATE OF EXAM: Feb 08 2024 3:51PM [facility] 0024 - CTA NECK W IVCON / PROCEDURE REASON: Occlusion and stenosis of unspecified carotid artery * * * * Physician Interpretation * * * * EXAMINATION: CTA HEAD W IVCON, CTA NECK W IVCON HISTORY: Occlusion and stenosis of unspecified carotid artery - - - OtherCarotid stenosis - concern for such on MRA brain with rad recommending further e (accession [id number]), Carotid Stenosis (accession [id number]) - Carotid artery stenosis, Carotid stenosis - [...] Short segment mild narrowing of the LEFT GRINDER OPERATOR [employer] P2 segment No abrupt vessel occlusion, intraluminal filling defect, high-grade stenosis, or aneurysm in the posterior intracranial circulation. Opacified dural venous sinuses and major deep and superficial draining veins are patent. Spray Blender (topogram) images: No additional findings. IMPRESSION IMPRESSION: [...] between software and imaging review: Not Applicable. Child And Adolescent Therapist: DULCE Transcribe Date/Time: Feb 08 2024 3:55P Dictated by : CINDY DRAPER MD This examination was (more content not included)... [facility] CTA HEAD W IVCONon 4 CTA HEAD W IVCON * * *Final Report* * * DATE OF EXAM: Feb 08 2024 3:51PM [facility] 0022 - CTA HEAD W IVCON / PROCEDURE REASON: Occlusion and stenosis of unspecified carotid artery * * * * Physician Interpretation * * * * EXAMINATION: CTA HEAD W IVCON, CTA NECK W IVCON HISTORY: Occlusion and stenosis of unspecified carotid artery - - - OtherCarotid stenosis - concern for such on MRA brain with rad recommending further e (accession [id number]), Carotid Stenosis (accession [id number]) - Carotid artery stenosis, Carotid stenosis - [...] Short segment mild narrowing of the LEFT GRINDER OPERATOR [employer]IC P2 segment No abrupt vessel occlusion, intraluminal filling defect, high-grade stenosis, or aneurysm in the posterior intracranial circulation. Opacified dural venous sinuses and major deep and superficial draining veins are patent. Spray Blender (topogram) images: No additional findings. IMPRESSION: No [...] between software and imaging review: Not Applicable. Child And Adolescent Therapist: DULCE Transcribe Date/Time: Feb 08 2024 3:55P Dictated by : CINDY DRAPER MD This examination was interpreted and the report reviewed and electronically signed by: CINDY DRAPER MD on Feb 08 2024 4:16PM EST [id number] Normal [facility] CTA Head Arteries W contrast Tamara 02-08-2024 * * *Final Report* * * DATE OF EXAM: Feb 08 2024 3:51PM [facility] 0022 - CTA HEAD W IVCON / PROCEDURE REASON: Occlusion and stenosis of unspecified carotid artery * * * * Physician Interpretation * * * * EXAMINATION: CTA HEAD W IVCON, CTA NECK W IVCON HISTORY: Occlusion and stenosis of unspecified carotid artery - - - OtherCarotid stenosis - concern for such on MRA brain with rad recommending further e (accession [id number]), Carotid Stenosis (accession [id number]) - Carotid artery stenosis, Carotid stenosis - [...] Short segment mild narrowing of the LEFT GRINDER OPERATOR AUTOMATIC P2 segment No abrupt vessel occlusion, intraluminal filling defect, high-grade stenosis, or aneurysm in the posterior intracranial circulation. Opacified dural venous sinuses and major deep and superficial draining veins are patent. Spray Blender (topogram) images: No additional findings. DIVISION OF RADIOLOGY Provider, [facility] - 02/08/2024 * * *Final Report* * * DATE OF EXAM: Feb 08 2024 3:51PM [facility] 0022 - CTA HEAD W IVCON / PROCEDURE REASON: Occlusion and stenosis of unspecified carotid artery * * * * Physician Interpretation * * * * EXAMINATION: CTA HEAD W IVCON, CTA NECK W IVCON HISTORY: Occlusion and stenosis of unspecified carotid artery - - - OtherCarotid stenosis - concern for such on MRA brain with rad recommending further e (accession [id number]), Carotid Stenosis (accession [id number]) - Carotid artery stenosis, Carotid stenosis - [...] Short segment mild narrowing of the LEFT GRINDER OPERATOR AUT[employer]IC P2 segment No abrupt vessel occlusion, intraluminal filling defect, high-grade stenosis, or aneurysm in the posterior intracranial circulation. Opacified dural venous sinuses and major deep and superficial draining veins are patent. Spray Blender (topogram) images: No additional findings. IMPRESSION IMPRESSION: [...] between software and imaging review: Not Applicable. Child And Adolescent Therapist: DULCE Transcribe Date/Time: Feb 08 2024 3:55P Dictated by : CINDY DRAPER MD This examination was (more content not included)... [facility] CTA NECK W IVCONon CTA NECK W IVCON * * *Final Report* * * DATE OF EXAM: Feb 08 2024 3:51PM [facility] 0024 - CTA NECK W IVCON / PROCEDURE REASON: Occlusion and stenosis of unspecified carotid artery * * * * Physician Interpretation * * * * EXAMINATION: CTA HEAD W IVCON, CTA NECK W IVCON HISTORY: Occlusion and stenosis of unspecified carotid artery - - - OtherCarotid stenosis - concern for such on MRA brain with rad recommending further e (accession [id number]), Carotid Stenosis (accession [id number]) - Carotid artery stenosis, Carotid stenosis - [...] Short segment mild narrowing of the LEFT GRINDER OPERATOR AUTOM[employer]IC P2 segment No abrupt vessel occlusion, intraluminal filling defect, high-grade stenosis, or aneurysm in the posterior intracranial circulation. Opacified dural venous sinuses and major deep and superficial draining veins are patent. Spray Blender (topogram) images: No additional findings. IMPRESSION: No [...] between software and imaging review: Not Applicable. Child And Adolescent Therapist: PSCB Transcribe Date/Time: Feb 08 2024 3:55P Dictated by : CINDY DRAPER MD This examination was interpreted and the report reviewed and electronically signed by: CINDY DRAPER MD on Feb 08 2024 4:16PM EST [id number] Normal [facility] No Panel Informationon 02-07 IMPRESSION: No [...] between software and imaging review: Not Applicable. Child And Adolescent Therapist: DULCE Transcribe Date/Time: Feb 08 2024 3:55P Dictated by : CINDY DRAPER MD This examination was interpreted and the report reviewed and electronically signed by: CINDY DRAPER MD on Feb 08 2024 4:16PM [facility] [email or web address]] DIVISION OF RADIOLOGY Radiology Study observation (narrative) [facility] No Panel InformationOrdered By: Ccf Provider on 02-08-2024 [facility] CNPNon 02-06-2024 [place] Telephone (JOSE JUAN) -- NAZARIO HUTTON ([id number]) 1950 Date Time Provider Department 02/06/24 PATRIA [...] unspecified laterality [I65.29] Order(s):CTA HEAD W IVCON [5159275] Order #: [id number] FUTURE CTA NECK W IVCON [1682808] Order #: [id number] FUTURE CREATININE BLD [SQCRET] Order #: [id number] FUTURE CTA HEAD W IVCON [[id number]] Order #: [id number] FUTURE CTA NECK W IVCON [7187714] Order #: [id number] FUTURE CREATININE BLD [SQCRET] Order #: [id number] FUTURE CONSULT TO VASCULAR SURGERY [9041] Order #: [id number]: 1 FUTURE Prescriptions as of 02/09/2024 - [...] Essential hy (more content not included)... Normal [facility] MR Brain WO contraston 02-05 * [...] gradient echo images. Intracranial and extracranial 3D srlq-ye-wzlusd MRA with post-processing performed at the modality [...] dominant. DIVISION OF RADIOLOGY Provider, Shelley Manzano [facility] - 02/06/2024 * * *Final Report* [...] gradient echo images. Intracranial and extracranial 3D topn-su-zurbpr MRA with post-processing performed at the modality [...] be communicated with the ordering provider via [employer] staff message or phone message by [facility] [employer] within 2 business days of report finalization. --END OF FINDING-- Child And Adolescent Therapist: DULCE Transcribe Date/Time: Feb 06 2024 10:35A Dictated by : ILANA LAWRENCE MD This examination was interpreted and the report reviewed and electronically signed by: ILANA LAWRENCE MD on Feb 06 2024 10:43AM [facility] MRA BRAIN WO IVCONon 02-05- 024 MRA BRAIN WO IVCON * * *Final Report* * * DATE OF EXAM: Feb 06 2024 10:00AM [facility] 0272 - MRA BRAIN WO IVCON / PROCEDURE REASON: Other symptoms and signs involving the nervous system * * * * Physician Interpretation * * * * EXAMINATION: MRA BRAIN WO IVCON, MRA CAROTID WO IVCON, MRI BRAIN WO IVCON CLINICAL HISTORY: Vertebrobasilar insufficiency TECHNIQUE: Routine noncontrast MRI protocol including diffusion and gradient echo images. Intracranial and extracranial 3D lxti-vv-recmih MRA with post-processing performed at the modality [...] be communicated with the ordering provider via [employer] staff message or phone message by [facility] [employer] within 2 business days of report finalization. --END OF FINDING-- Child And Adolescent Therapist: DULCE Transcribe Date/Time: Feb 06 2024 10:35A Dictated by : ILANA LAWRENCE MD This examination was interpreted and the report reviewed and electronically signed by: ILANA LAWRENCE MD on Feb 06 2024 10:43AM EST [id number] ACTIONABLE Invalid Interpretation Code [facility] MRA CAROTID WO IVCONon 02-05 MRA [...] gradient echo images. Intracranial and extracranial 3D rxpj-di-hapctw MRA with post-processing performed at the modality [...] be communicated with the ordering provider via [employer] staff message or phone message by [facility] within 2 business days of report finalization. --END OF FINDING-- Child And Adolescent Therapist: DULCE Transcribe Date/Time: Feb 06 2024 10:35A Dictated by : ILANA LAWRENCE MD This examination was interpreted and the report reviewed and electronically signed by: ILANA LAWRENCE MD on Feb 06 2024 10:43AM EST [id number] ACTIONABLE Invalid Interpretation Code [facility] MRA Head vessels WO contrast on 02-06-2024 * * *Final Report* * * DATE OF EXAM: Feb 06 2024 10:00AM [facility] 0272 - MRA BRAIN WO IVCON / PROCEDURE REASON: Other symptoms and signs involving the nervous system * * * * Physician Interpretation * * * * EXAMINATION: MRA BRAIN WO IVCON, MRA CAROTID WO IVCON, MRI BRAIN WO IVCON CLINICAL HISTORY: Vertebrobasilar insufficiency TECHNIQUE: Routine noncontrast MRI protocol including diffusion and gradient echo images. Intracranial and extracranial 3D [id number] MRA with post-processing performed at the modality [...] Dominance: Left dominant. DIVISION OF RADIOLOGY Provider, [facility] - 02/06/2024 * * *Final Report* * * DATE OF EXAM: Feb 06 2024 10:00AM [facility] 0272 - MRA BRAIN WO IVCON / PROCEDURE REASON: Other symptoms and signs involving the nervous system * * * * Physician Interpretation * * * * EXAMINATION: MRA BRAIN WO IVCON, MRA CAROTID WO IVCON, MRI BRAIN WO IVCON CLINICAL HISTORY: Vertebrobasilar insufficiency TECHNIQUE: Routine noncontrast MRI protocol including diffusion and gradient echo images. Intracranial and extracranial 3D ahrp-sg-[id number] MRA with post-processing performed at the modality [...] be communicated with the ordering provider via [employer] staff message or phone message by [facility] [employer] within 2 business days of report finalization. --END OF FINDING-- Child And Adolescent Therapist: DULCE Transcribe Date/Time: Feb 06 2024 10:35A Dictated by : ILANA LAWRENCE MD This examination was interpreted and the report reviewed and electronically signed by: ILANA LAWRENCE MD on Feb 06 2024 10:43AM EST [facility] MRA Neck vessels WO contrast [...] gradient echo images. Intracranial and extracranial 3D [id number]-[id number] MRA with post-processing performed at the modality [...] dominant. DIVISION OF RADIOLOGY Provider, Shelley Manzano [facility] - 02/06/2024 * * *Final Report* [...] gradient echo images. Intracranial and extracranial 3D yipi-[id number]-[id number] MRA with post-processing performed at the modality [...] be communicated with the ordering provider via [employer] staff message or phone message by [facility] within 2 business days of report finalization. --END OF FINDING-- Child And Adolescent Therapist: DULCE Transcribe Date/Time: Feb 06 2024 10:35A Dictated by : ILANA LAWRENCE MD This examination was interpreted and the report reviewed and electronically signed by: ILANA LAWRENCE MD on Feb 06 2024 10:43AM [facility] MRI BRAIN WO IVCONon 16-2 024 MRI BRAIN WO IVCON * * *Final Report* * * DATE OF EXAM: Feb 06 2024 10:00AM [facility] 0294 - MRI BRAIN WO IVCON / PROCEDURE REASON: Other symptoms and signs involving the nervous system * * * * Physician Interpretation * * * * EXAMINATION: MRA BRAIN WO IVCON, MRA CAROTID WO IVCON, MRI BRAIN WO IVCON CLINICAL HISTORY: Vertebrobasilar insufficiency TECHNIQUE: Routine noncontrast MRI protocol including diffusion and gradient echo images. Intracranial and extracranial 3D dlpc-[id number] MRA with post-processing performed at the modality [...] be communicated with the ordering provider via [employer] staff message or phone message by [facility] within 2 business days of report finalization. --END OF FINDING-- Child And Adolescent Therapist: DULCE Transcribe Date/Time: Feb 06 2024 10:35A Dictated by : ILANA LAWRENCE MD This examination was interpreted and the report reviewed and electronically signed by: ILANA LAWRENCE MD on Feb 06 2024 10:43AM EST [id number] ACTIONABLE Invalid Interpretation Code [facility] Panel InformationOrdered By: Cc Provider on 02-06-2024 Interpretation and review of laboratory results Abnormal [facility] Radiology Result ACTIONABLE Abnormal [facility] Comment on above: This report contains an [...] contact your provider for the next steps. [facility] No Panel Informationon 02-05 IMPRESSION: [...] be communicated with the ordering provider via [employer] staff message or phone message by [facility] within 2 business days of report finalization. --END OF FINDING-- Child And Adolescent Therapist: DULCE Transcribe Date/Time: Feb 06 2024 10:35A Dictated by : ILANA LAWRENCE MD This examination was interpreted and the report reviewed and electronically signed by: ILANA LAWRENCE MD on Feb 06 2024 10:43AM EST DIVISION OF RADIOLOGY Radiology Study observation (narrative) [facility] Baljit 01-08-2024 [facility] Telephone ([place]) -- NAZARIO HUTTON ([id number]) 1950 M Date Time Provider Department 01/08/24 PATRIA KHANNA JR During your visit today, we recorded the following information about you: Bhavani Turk LPN 01/08/2024 4:13 PM Signed ----- [...] answer brief message to contact a nurse. [employer] logon . SUSHIL Andrews Gillian, OCCA 01/17/2024 [...] disorder [N42.9] 03/15/2021 Medication management [Z79.899] 03/15/2021 Tinter Photograph's nodules [L28.1] 03/15/2021 Elevated PSA [R97.20] 03/17/2021 [...] Status:Closed by BHAVANI TURK on 01/17/24 Normal [facility] CBC W Auto Differential pane l (Bld)on 10-17-2023 Basophils (Bld) [#/Vol] 0.05 10*3/uL <0.11 k/uL [facility] Basophils/100 WBC (Bld) 0.7 % [facility] Differential cell count method Nom (Bld) Auto [facility] Eosinophils (Bld) [#/Vol] 0.62 10*3/uL High <0.46 k/uL [facility] Eosinophils/100 WBC (Bld) 8.2 % [facility] Erythrocyte distribution width (RBC) [Ratio] 13.3 % 11.5 - 15.0 % [facility] Hematocrit (Bld) [Volume fraction] 42.4 % 39.0 - 51.0 % [facility] Hemoglobin (Bld) [Mass/Vol] 14.1 g/dL 13.0 - 17.0 g/dL [facility] Immature granulocytes (Bld) [#/Vol] <0.10 k/uL [facility] Immature granulocytes/100 WBC (Bld) 0.3 % [facility] Lymphocytes (Bld) [#/Vol] 0.83 10*3/uL Low 1.00 - 4.00 k/uL [facility] Lymphocytes/100 WBC (Bld) 11.0 % [facility] MCH (RBC) [Entitic mass] 34.3 pg High 26.0 - 34.0 pg [facility] MCHC (RBC) [Mass/Vol] 33.3 g/dL 30.5 - 36.0 g/dL [facility] MCV (RBC) [Entitic vol] 103.2 fL High 80.0 - 100.0 fL [facility] Monocytes (Bld) [#/Vol] 1.00 10*3/uL High <0.87 k/uL [facility] Monocytes/100 WBC (Bld) 13.2 % [facility] Neutrophils (Bld) [#/Vol] 5.05 10*3/uL 1.45 - 7.50 k/uL [facility] Neutrophils/100 WBC (Bld) 66.6 % [facility] Nucleated RBC (Bld) [#/Vol] <0.01 k/uL [facility] Nucleated RBC/100 WBC (Bld) [Ratio] 0.0 /100 WBC [facility] Platelet mean volume (Bld) [Entitic vol] 10.6 fL 9.0 - 12.7 fL [facility] Platelets (Bld) [#/Vol] 224 10*3/uL 150 - 400 k/uL [facility] RBC (Bld) [#/Vol] 4.11 10*6/uL Low 4.20 - 6.0 0 m/uL [facility] WBC (Bld) [#/Vol] 7.57 10*3/uL 3.70 - 11. 00 k/uL [facility] Urinalysis complete panel (U )on 10-17-2023 Bacteria LM.HPF (Urine sed) [#/Area] Negative Negative /HPF [facility] Bilirubin Ql (U) Negative Negative [facility] Clarity (Unsp spec) Clear Clear [facility] Color (U) Yellow Yellow [facility] Epithelial cells LM.HPF (Urine sed) [#/Area] None Seen [facility] Glucose Test strip (U) [Mass/Vol] Negative Negative [facility] Hemoglobin Ql (U) Negative Negative [facility] Hyaline casts (Urine sed) [#/Area] 0 /[LPF] 0 /LPF [facility] Ketones Ql (U) Negative Negative [facility] Leukocyte esterase Test strip Ql (U) 1+ Abnormal Negative [facility] Nitrite Ql (U) Negative Negative [facility] pH (U) 6.0 [pH] <8.5 [facility] Protein (U) [Mass/Vol] Negative Negative [facility] RBC LM.HPF (Urine sed) [#/Area] 0-2 /HPF 0-2 /HPF [facility] Specific gravity (U) [Rel density] 1.007 1.005 - 1.030 [facility] Urobilinogen Ql (U) 0.2 EU/dL 0.2-1.0 EU/dL [facility] WBC LM.HPF (Urine sed) [#/Area] 0-5 /HPF 0-5 /HPF [facility] Absolute lymphocyte countOrd ered By: Estefany Thrasher on 09-05-2023 Lymphocytes Auto (Unsp spec) [#/Vol] 0.60 10*3/uL 0.83-4.51 [facility] Automated lymphocyte count a s percentage of total leukocytesOrdered By: Estefany Thrasher on 09-05-2023 Lymphocytes/100 WBC Auto (Unsp spec) 8.2 % 19-41 [facility] Basophil percentageOrdered B y: Estefany Thrasher on 09-05-2023 Basophils/100 WBC (Bld) 0.5 % 0-1 [facility] Chloride [Moles/Vol] 110 mmol/L 98-[address] [facility] Eosinophils/100 WBC (Bld) 7.1 % 0-5 [facility] Glucose [Mass/Vol] 97 mg/dL 74-106 [facility] Hemoglobin (Bld) [Mass/Vol] 14.3 g/dL 13.0-16.5 [facility] Monocytes/100 WBC (Bld) 12.3 % 0-10 [facility] Neutrophils (Bld) [#/Vol] 5.2 10*3/uL 2.0-7.7 [facility] Neutrophils/100 WBC (Bld) 71.5 % 47-70 [facility] Potassium [Moles/Vol] 4.6 mmol/L 3.5-5.1 [facility] Sodium [Moles/Vol] 140 mmol/L 136-145 [facility] WBC (Bld) [#/Vol] 7.3 10*3/uL 4.4-11.0 [facility] Determination of erythrocyte mean corpuscular volume (MCV)Ordered By: Estefany Thrasher on 09-05-2023 MCV (RBC) [Entitic vol] 103.5 fL 80-94 [facility] Erythrocyte distribution wid th ratioOrdered By: Estefany Thrasher on 09-05-2023 Erythrocyte distribution width (RBC) [Ratio] 12.9 % 11.6-14.6 [facility] Erythrocyte distribution wid th standard deviationOrdered By: Estefany Thrasher on 09-05-2023 Erythrocyte distribution width (RBC) [Entitic vol] 48.9 fL 35.1-43.9 [facility] Hematocrit Auto (Bld) [Volum e fraction]Ordered By: Estefany Thrasher on 09-05-2023 Hematocrit (Bld) [Volume fraction] 43.8 % 40-54 [facility] Immature granulocytes/100 WB C Auto (Bld)Ordered By: Estefany Thrasher on 09-05-2023 Immature granulocytes/100 WBC (Bld) 0.400 % 0.0-0.9 [facility] Comment on above: IG% - Immature Granu locytes (promyelocytes, myelocytes and metamyelocytes) > 1% indicates that a LEFT SHIFT is Present. Laboratory - Chemistry and C hemistry - challengeOrdered By: Estefany Thrasher on 09-05-2023 CO2 [Moles/Vol] 26.0 mmol/L 21.0-32.0 [facility] Natriuretic peptide B (Bld) [Mass/Vol] 140.8 pg/mL 0-100 [facility] Urea nitrogen/Creatinine [Mass ratio] 13.7 mg/mg 10-20 [facility] Laboratory - Hematology and Cell countsOrdered By: Estefany Thrasher on 09-05-2023 MCH (RBC) [Entitic mass] 33.8 pg 27.0-32.0 [facility] MCHC (RBC) [Mass/Vol] 32.6 g/dL 32-36 [facility] Nucleated RBC/100 WBC (Bld) [Ratio] 0 % 0-5 [facility] Platelet mean volume (Bld) [Entitic vol] 10.5 fL 6.2-12.0 [facility] Platelets (Bld) [#/Vol] 214 10*3/uL 150-450 [facility] No Panel InformationOrdered By: Estefany Thrasher on 09-05-2023 Estimated GFR (MDRD) Amer 110 mL/min >60 [facility] Comment on above: GFR Calc Estimated GFR (MDRD) Non-Af Amer 91 mL/min >60 [facility] Comment on above: Non- GFR Calc RBC Auto (Bld) [#/Vol]Ordere d By: Estefany Thrasher on 09-05-2023 RBC (Bld) [#/Vol] 4.23 10*6/uL 4.6-6.2 [facility] Serum or plasma calcium reid urement (mass/volume)Ordered By: Estefany Thrasher on 09-05-2023 Calcium [Mass/Vol] 9.7 mg/dL 8.5-10.1 [facility] Serum or plasma creatinine m easurement (mass/volume)Ordered By: Estefany Thrasher on 09-05-2023 Creatinine [Mass/Vol] 0.87 mg/dL 0.70-1.30 [facility] Comment on above: The validity of the calculated GFR & GFRAA in patients over 70 years has not been determined. Clinical correlation is essential. Serum or plasma urea nitroge n measurement (mass/volume)Ordered By: Estefany Thrasher on 09-05-2023 Urea nitrogen [Mass/Vol] 12 mg/dL 02-07 [facility] Thin prep Papanicolaou smear with manual screeningOrdered By: Estefany Thrasher on 09-05-2023 Thin prep Papanicolaou smear with manual screening 4 5-15 [facility] CNPNon 08-10-2023 CNPN Telephone ([facility]) -- NAZARIO HUTTON ( ) 1950 Date Time Provider Department 08/10/23 VALERIANO BEASLEY [facility] During your visit today, we recorded the following information about you: Valeriano Beasley MD 08/10/2023 11:14 AM Signed Let patient know his lumbar MRI shows significant changes contributing to his pain. I want to send him to the [place] [facility] Dr. José Miguel Valverde. Order placed. 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] 03/15/2021 Elevated PSA [R97.20] 03/17/2021 [...] Status:Closed by PINEDA STYLES on 08/10/23 Normal [facility] FOLATE SERUMon 04-21-2023 Folate [Mass/Vol] 18.2 ng/mL >4.7 ng/mL [facility] T4 FREE/FREE THYROXon 2022 Free T4 [Mass/Vol] 1.0 ng/dL 0.9 - 1.7 ng/dL [facility] TSH BLDon 04-21-2023 TSH Qn 3.260 m[IU]/L 0.270 - 4.200 mIU/L [facility] VITAMIN B12 BLOODon 04-21-20 Cobalamin (Vitamin B12) [Mass/Vol] 244 pg/mL 232 - 1,245 pg/mL [facility] CBC W/DIFF/PLT (EXTERNAL LAB RALF)on 12-13-2022 BASO ABSOLUTE [facility] Basophils/100 WBC (Bld) 0.9 % [facility] EOS ABSOLUTE [facility] Eosinophils/100 WBC (Bld) 7.6 % [facility] Erythrocyte distribution width (RBC) [Ratio] 15.4 % 12.3 - 15.4 % [facility] Hematocrit (Bld) [Volume fraction] 46.7 % 37.5 - 51.0 % [facility] Hemoglobin (Bld) [Mass/Vol] 15 g/dL 12.6 - 17.7 g/dL [facility] Immature Gran % [facility] IMMATURE GRANS ABSOLUTE [facility] Lymphocytes (Bld) [#/Vol] 0.49 10*3/uL Abnormal 0.7 - 3.1 k/uL [facility] Lymphocytes/100 WBC (Bld) 7.3 % [facility] MCH 31.5 Pg 26.6 - 33 Pg [facility] MCHC (RBC) [Mass/Vol] 32.1 g/dL 31.5 - 35.7 g/dL [facility] MCV (RBC) [Entitic vol] 98.1 fL Abnormal 79 - 97 fL [facility] MONOCYTES ABSOLUTE [facility] Monocytes/100 WBC (Bld) 11.4 % [facility] NEUTROPHILS ABSOLUTE 4.9 k/uL 1.4 - 7 .0 k/uL [facility] Neutrophils/100 WBC (Bld) 72.5 % [facility] Platelets (Bld) [#/Vol] 205 10*3/uL 150 - 379 k/uL [facility] RBC (Bld) [#/Vol] 4.76 10*6/uL 4.14 - 5.8 0 M/uL [facility] WBC (Bld) [#/Vol] 6.7 10*3/uL 3.4 - 10.8 K/uL [facility] FERRITIN BLDon 12-13-2022 Ferritin [Mass/Vol] 64 ng/mL 26 - 388 [facility] IRON PANEL (OUTSIDE)on 12-13 Iron [Mass/Vol] 133 ug/dL 65 - 175 [facility] TIBC 40.1 15 - 55 [facility] Absolute lymphocyte countOrd ered By: Xochilt Casanova on 12-09-2022 Lymphocytes Auto (Unsp spec) [#/Vol] 0.49 10*3/uL 0.83-4.51 [facility] Basophil percentageOrdered B y: Xochilt Casanova on 12-09-2022 Basophils/100 WBC (Bld) 0.9 % 0-1 [facility] Eosinophils/100 WBC (Bld) 7.6 % 0-5 [facility] Neutrophils (Bld) [#/Vol] 4.9 10*3/uL 2.0-7.7 [facility] Neutrophils/100 WBC (Bld) 72.5 % 47-70 [facility] WBC (Bld) [#/Vol] 6.7 10*3/uL 4.4-11.0 [facility] Blood erythrocytes count (nu mber/volume)Ordered By: Xochilt Casanova on 12-09-2022 RBC (Bld) [#/Vol] 4.76 10*6/uL 4.6-6.2 [facility] Blood hemoglobin measurement (mass/volume)Ordered By: Xochilt Casanova on 12-09-2022 Hemoglobin (Bld) [Mass/Vol] 15.0 g/dL 13.0-16.5 [facility] Blood lymphocytes/100 leukoc ytesOrdered By: Xochilt Casanova on 12-09-2022 Lymphocytes/100 WBC (Bld) 7.3 % 19-41 [facility] Blood monocytes/100 leukocyt esOrdered By: Xochilt Casanova on 12-09-2022 Monocytes/100 WBC (Bld) 11.4 % 0-10 [facility] Blood platelet mean volumeOr dered By: Xochilt Casanova on 12-09-2022 Platelet mean volume (Bld) [Entitic vol] 9.5 fL 6.2-12.0 [facility] Determination of erythrocyte mean corpuscular volume (MCV)Ordered By: Xochilt Casanova on 12-09-2022 MCV (RBC) [Entitic vol] 98.1 fL 80-94 [facility] Hematocrit Auto (Bld) [Volum e fraction]Ordered By: Xochilt Casanova on 12-09-2022 Hematocrit (Bld) [Volume fraction] 46.7 % 40-54 [facility] Iron measurement (mass/mass) Ordered By: Xochilt Casanova on 12-09-2022 Iron (Unsp spec) [Mass/Mass] 133 ug/dL 65-175 [facility] Laboratory - Hematology and Cell countsOrdered By: Xochilt Casanova on 12-09-2022 Erythrocyte distribution width (RBC) [Entitic vol] 55.2 fL 35.1-43.9 [facility] Erythrocyte distribution width (RBC) [Ratio] 15.4 % 11.6-14.6 [facility] Immature granulocytes/100 WBC (Bld) 0.300 % 0.0-0.9 [facility] Comment on above: IG% - Immature Granu locytes (promyelocytes, myelocytes and metamyelocytes) > 1% indicates that a LEFT SHIFT is Present. MCH (RBC) [Entitic mass] 31.5 pg 27.0-32.0 [facility] Nucleated RBC/100 WBC (Bld) [Ratio] 0 % 0-5 [facility] MCHC Auto (RBC) [Mass/Vol]Or dered By: Xochilt Casanova on 12-09-2022 MCHC (RBC) [Mass/Vol] 32.1 g/dL 32-36 [facility] No Panel InformationOrdered By: Xochilt Casanova on 12-09-2022 Total Iron Binding Capacity 332 ug/dL 250-450 [facility] Platelets bldOrdered By: Andria Casanova on 12-09-2022 Platelets (Bld) [#/Vol] 205 10*3/uL 150-450 [facility] Serum or plasma ferritin steve surement (mass/volume)Ordered By: Xochilt Casanova on 12-09-2022 Ferritin [Mass/Vol] 64 ng/mL 26-388 [facility] Serum or plasma iron saturat ion measurement (mass fraction)Ordered By: Xochilt Casanova on 12-09-2022 Iron saturation [Mass fraction] 40.1 % 15.0-55.0 [facility] 09-15-2022 CNPN Telephone ([facility]) -- NAZARIO HUTTON ( ) 1950 M [...] walking. 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 Franklin Francois at [place] phone # [phone] Ganesh White MA 09/15/2022 2:34 PM Signed Left message for patient to contact office. Ganesh White MA Faxed information to cardio. LINA Gandara LPN 09/16/2022 2:37 PM Signed Patient returned call and went over results, notes from Dr Beasley with understanding. Aware lab results were faxed to Plastic Worker office. 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] 03/15/2021 Elevated PSA [R97.20] 03/17/2021 [...] by TEODORO DYE LPN on 09/16/22 Normal [facility] Comprehensive metabolic 2000 panelon 09-15-2022 Albumin [Mass/Vol] 3.4 g/dL Low 3.9 - 4.9 g/dL [facility] ALP [Catalytic activity/Vol] 104 U/L 38 - 113 U/L [facility] ALT [Catalytic activity/Vol] 11 U/L 10 - 54 U/L [facility] Anion gap [Moles/Vol] 7 mmol/L Low 9 - 18 mmol/L [facility] AST [Catalytic activity/Vol] 15 U/L 14 - 40 U/L [facility] Bilirubin [Mass/Vol] 0.4 mg/dL 0.2 - 1 .3 mg/dL [facility] Calcium [Mass/Vol] 8.6 mg/dL 8.5 - 10. 2 mg/dL [facility] Chloride [Moles/Vol] 107 mmol/L High 97 - 10 5 mmol/L [facility] CO2 [Moles/Vol] 25 mmol/L 22 - 30 mmol/L [facility] Creatinine [Mass/Vol] 0.81 mg/dL 0.73 - 1.22 mg/dL [facility] Estimated Glomerular Filtration Rate 94 mL/min/1.73m >=60 mL/min/1.73m [facility] Glucose [Mass/Vol] 98 mg/dL 74 - 99 mg/dL [facility] Potassium [Moles/Vol] 4.2 mmol/L 3.7 - 5.1 mmol/L [facility] Protein [Mass/Vol] 6.3 g/dL 6.3 - 8.0 g/dL [facility] Sodium [Moles/Vol] 139 mmol/L 136 - 144 mmol/L [facility] Urea nitrogen [Mass/Vol] 6 mg/dL Low 9 - 24 mg/dL [facility] Iron and Iron binding capaci ty panelon 09-15-2022 Iron [Mass/Vol] 23 ug/dL Low 41 - 186 ug/dL [facility] Iron binding capacity [Mass/Vol] 216 ug/dL Low 232 - 386 ug/dL [facility] Iron/TIBC [Molar ratio] 10.6 % Low 15.0 - 57.0 % [facility] LIPID PANEL, NONFASTINGon Cholesterol [Mass/Vol] 117 mg/dL <200 mg/dL [facility] HDL Cholesterol, Nonfasting 35 mg/dL Low >39 mg/dL [facility] LDL Cholesterol, Nonfasting 71 mg/dL <100 mg/dL [facility] LDL/HDL Ratio, Nonfasting 2.03 mg/dL <2.54 mg/dL [facility] Non HDL Cholesterol, Nonfasting 82 mg/dL <130 mg/dL [facility] Total Chol/HDL Ratio, Nonfasting 3.34 mg/dL <5.10 mg/dL [facility] Triglycerides, Nonfasting 55 mg/dL <150 mg/dL [facility] VLDL Cholesterol, Nonfasting 11 mg/dL <30 mg/dL [facility] CBC W Auto Differential pane l (Bld)on 09-14-2022 Basophils (Bld) [#/Vol] 0.04 10*3/uL <0.11 k/uL [facility] Basophils/100 WBC (Bld) 0.3 % [facility] Differential cell count method Nom (Bld) Auto [facility] Eosinophils (Bld) [#/Vol] 0.41 10*3/uL <0.46 k/uL [facility] Eosinophils/100 WBC (Bld) 3.6 % [facility] Erythrocyte distribution width (RBC) [Ratio] 16.9 % High 11.5 - 15.0 % [facility] Hematocrit (Bld) [Volume fraction] 29.3 % Low 39.0 - 51.0 % [facility] Hemoglobin (Bld) [Mass/Vol] 9.2 g/dL Low 13.0 - 17.0 g/dL [facility] Immature granulocytes (Bld) [#/Vol] 0.05 10*3/uL <0.10 k/uL [facility] Immature granulocytes/100 WBC (Bld) 0.4 % [facility] Lymphocytes (Bld) [#/Vol] 0.83 10*3/uL Low 1.00 - 4.00 k/uL [facility] Lymphocytes/100 WBC (Bld) 7.2 % [facility] MCH (RBC) [Entitic mass] 33.0 pg 26.0 - 34.0 pg [facility] MCHC (RBC) [Mass/Vol] 31.4 g/dL 30.5 - 36.0 g/dL [facility] MCV (RBC) [Entitic vol] 105.0 fL High 80.0 - 100.0 fL [facility] Monocytes (Bld) [#/Vol] 0.91 10*3/uL High <0.87 k/uL [facility] Monocytes/100 WBC (Bld) 7.9 % [facility] Neutrophils (Bld) [#/Vol] 9.27 10*3/uL High 1.45 - 7.50 k/uL [facility] Neutrophils/100 WBC (Bld) 80.6 % [facility] Nucleated RBC (Bld) [#/Vol] <0.01 k/uL [facility] Nucleated RBC/100 WBC (Bld) [Ratio] 0.0 /100 WBC [facility] Platelet mean volume (Bld) [Entitic vol] 10.8 fL 9.0 - 12.7 fL [facility] Platelets (Bld) [#/Vol] 323 10*3/uL 150 - 400 k/uL [facility] RBC (Bld) [#/Vol] 2.79 10*6/uL Low 4.20 - 6.0 0 m/uL [facility] WBC (Bld) [#/Vol] 11.51 10*3/uL High 3.70 - 11 .00 k/uL [facility] Absolute lymphocyte countOrd ered By: Dr. Crespo on 09-09-2022 Lymphocytes Auto (Unsp spec) [#/Vol] 0.55 10*3/uL 0.83-4.51 [facility] Basophil percentageOrdered B y: Dr. Crespo on 09-09-2022 Basophils/100 WBC (Bld) 0.5 % 0-1 [facility] Eosinophils/100 WBC (Bld) 8.0 % 0-5 [facility] Neutrophils (Bld) [#/Vol] 3.7 10*3/uL 2.0-7.7 [facility] Neutrophils/100 WBC (Bld) 67.3 % 47-70 [facility] WBC (Bld) [#/Vol] 5.5 10*3/uL 4.4-11.0 [facility] Blood erythrocytes count (nu mber/volume)Ordered By: Dr. Crespo on 09-09-2022 RBC (Bld) [#/Vol] 2.34 10*6/uL 4.6-6.2 [facility] Blood hemoglobin measurement (mass/volume)Ordered By: Dr. Crespo on 09-09-2022 Hemoglobin (Bld) [Mass/Vol] 7.6 g/dL 13.0-16.5 [facility] Blood lymphocytes/100 leukoc ytesOrdered By: Dr. Crespo on 09-09-2022 Lymphocytes/100 WBC (Bld) 10.0 % 19-41 [facility] Blood manual differential co mment interpretation (narrative result)Ordered By: Dr. Crespo on 09-09-2022 Manual differential comment Kamaljit (Bld) [Interp] SCANNED [facility] Comment on above: LYMPHOPENIA NOTED Blood monocytes/100 leukocyt esOrdered By: Dr. Crespo on 09-09-2022 Monocytes/100 WBC (Bld) 13.8 % 0-10 [facility] Blood platelet mean volumeOr dered By: Dr. Crespo on 09-09-2022 Platelet mean volume (Bld) [Entitic vol] 9.9 fL 6.2-12.0 [facility] Determination of erythrocyte mean corpuscular volume (MCV)Ordered By: Dr. Crespo on 09-09-2022 MCV (RBC) [Entitic vol] 104.3 fL 80-94 [facility] Hematocrit Auto (Bld) [Volum e fraction]Ordered By: Dr. Crespo on 09-09-2022 Hematocrit (Bld) [Volume fraction] 24.4 % 40-54 [facility] Laboratory - Hematology and Cell countsOrdered By: Dr. Crespo on 09-09-2022 Anisocytosis Ql (Bld) 1+ [facility] Erythrocyte distribution width (RBC) [Entitic vol] 67.8 fL 35.1-43.9 [facility] Erythrocyte distribution width (RBC) [Ratio] 17.7 % 11.6-14.6 [facility] Immature granulocytes/100 WBC (Bld) 0.400 % 0.0-0.9 [facility] Comment on above: IG% - Immature Granu locytes (promyelocytes, myelocytes and metamyelocytes) > 1% indicates that a LEFT SHIFT is Present. MCH (RBC) [Entitic mass] 32.5 pg 27.0-32.0 [facility] Nucleated RBC/100 WBC (Bld) [Ratio] 0 % 0-5 [facility] MCHC Auto (RBC) [Mass/Vol]Or dered By: Dr. Crespo on 09-09-2022 MCHC (RBC) [Mass/Vol] 31.1 g/dL 32-36 [facility] Macrocytes detectionOrdered By: Dr. Crespo on 09-09-2022 Macrocytes Ql (Bld) 1+ [facility] No Panel InformationOrdered By: Dr. Hagen on 09-09-2022 D-Dimer Quantitative (PE/DVT) 3.21 FEU/ug/m 0.27-0.49 [facility] Comment on above: D-Dimer ELEVATED (>0 .49): Additional studies and clinicalassessments are indicated to conclude diagnosis of:Deep Vein Thrombosis (DVT) or Pulmonary Embolism (PE)CRITICAL VALUE VERIFIED. CALLED TO [id number] Leslie Proctor.RESULTS READ BACK BY SAME . Platelets bldOrdered By: Dr. Crespo on 09-09-2022 Platelets (Bld) [#/Vol] 212 10*3/uL 150-450 [facility] Basophil percentageOrdered B y: Dr. Crespo on 09-08-2022 Chloride [Moles/Vol] 116 mmol/L 98-107 [facility] Glucose [Mass/Vol] 103 mg/dL 74-106 [facility] Comment on above: Fasting Glucose resu lt from 100 to 125 mg/dL suggests IMPAIRED HOMEOSTASIS per A.D.A. criteria. Potassium [Moles/Vol] 3.7 mmol/L 3.5-5.1 [facility] Sodium [Moles/Vol] 145 mmol/L 136-145 [facility] Laboratory - Chemistry and C hemistry - challengeOrdered By: Dr. Crespo on 09-08-2022 CO2 [Moles/Vol] 26.0 mmol/L 21.0-32.0 [facility] Urea nitrogen/Creatinine [Mass ratio] 3.1 mg/mg 10-20 [facility] No Panel InformationOrdered By: Dr. Crespo on 09-08-2022 Estimated Creatinine Clearance Calc 69.96 ml/min [facility] Estimated GFR (MDRD) Amer 155 mL/min >60 [facility] Comment on above: GFR Calc Estimated GFR (MDRD) Non-Af Amer 128 mL/min >60 [facility] Comment on above: Non- GFR Calc Serum or plasma calcium reid urement (mass/volume)Ordered By: Dr. Crespo on 09-08-2022 Calcium [Mass/Vol] 8.2 mg/dL 8.5-10.1 [facility] Serum or plasma creatinine m easurement (mass/volume)Ordered By: Dr. Crespo on 09-08-2022 Creatinine [Mass/Vol] 0.65 mg/dL 0.70-1.30 [facility] Comment on above: The validity of the calculated GFR & GFRAA in patients over 70 years has not been determined. Clinical correlation is essential. Serum or plasma urea nitroge n measurement (mass/volume)Ordered By: Dr. Crespo on 09-08-2022 Urea nitrogen [Mass/Vol] 2 mg/dL 7-18 [facility] Thin prep Papanicolaou smear with manual screeningOrdered By: Dr. Crespo on 09-08-2022 Thin prep Papanicolaou smear with manual screening 3 5-15 [facility] Thin prep Papanicolaou smear with manual screeningOrdered By: Dr. Crespo on 09-06-2022 Thin prep Papanicolaou smear with manual screening 1+ [facility] Laboratory - CoagulationOrde red By: Dr. Corbin on 09-04-2022 aPTT Coag (Bld) [Time] 40.0 s 24.1-36.2 [facility] Basophil percentageOrdered B y: Dr. Ramos on 09-03-2022 Bilirubin [Mass/Vol] 0.70 mg/dL 0.20-1.00 [facility] Comment on above: For patients on eltr ombopag therapy, use of Dimension [place] TBIL is not recommended. Protein [Mass/Vol] 5.6 g/dL 6.4-8.2 [facility] EP PanelOrdered By: Dr. Tiffanie paez on 09-03-2022 Gastrointestinal pathogens panel DEMARIO+probe (Stl) [facility] Laboratory - Chemistry and C hemistry - challengeOrdered By: Dr. Ramos on 09-03-2022 ALP [Catalytic activity/Vol] 72 U/L 45-117 [facility] ALT [Catalytic activity/Vol] 16 U/L 16-61 [facility] Globulin (S) [Mass/Vol] 3.0 g/dL 2.2-4.2 [facility] No Panel InformationOrdered By: Dr. Corbin on 09-03-2022 Troponin I High Sensitivity 3730 pg/mL 3.0-78.0 [facility] Comment on above: Critical Result(s) C alled at: 21:16:59 09/03/2022 by: Nadine Platt. Results read back by same. Please Note: New Test Units and Gender Specific Reference Ranges. For more information see Policy Stat Procedure [place] High Sensitivity Troponin (TNIH) and attachments. Serum or plasma albumin reid urement (mass/volume)Ordered By: Dr. Ramos on 09-03-2022 Albumin [Mass/Vol] 2.6 g/dL 3.2-5.0 [facility] Serum or plasma albumin/glob ulin mass ratioOrdered By: Dr. Ramos on 09-03-2022 Albumin/Globulin [Mass ratio] 0.9 {ratio} 0.9-2.4 [facility] Stool lactoferrin detection by immunoassayOrdered By: Dr. Holguin on 09-03-2022 Lactoferrin IA Ql (Stl) [facility] Thin prep Papanicolaou smear with manual screeningOrdered By: Dr. Ramos on 09-03-2022 Thin prep Papanicolaou smear with manual screening 20 U/L 15-37 [facility] Whole blood hemoglobin A1c/t otal hemoglobin ratio (mass fraction)Ordered By: Dr. Ramos on 09-03-2022 HbA1c (Bld) [Mass fraction] % 3.8-5.6 [facility] Comment on above: Normal < 5.7 % Predi abetic 5.7 - 6.4 % Diabetic >or= 6.5 % Please note range changes. Basophil percentageOrdered B y: Dr. Ramos on 09-02-2022 Basophil percentage 3.7 mg/dL 2.5-4.9 [facility] Direct bilirubinOrdered By: Dr. Segal on 09-02-2022 Bilirubin.direct [Mass/Vol] 0.18 mg/dL 0.00-0.30 [facility] INR in Blood by Coagulation assayOrdered By: Dr. Segal on 09-02-2022 INR Coag (Bld) [Relative time] 1.2 {INR} [facility] Laboratory - Chemistry and C hemistry - challengeOrdered By: Dr. Ramos on 09-02-2022 Magnesium [Mass/Vol] 2.2 mg/dL 1.6-2.6 [facility] Laboratory - CoagulationOrde red By: Dr. Segal on 09-02-2022 PT Coag (PPP) [Time] 14.4 s 11.7-14.9 [facility] Serum procalcitonin measurem entOrdered By: Dr. Ramos on 09-02-2022 Procalcitonin [Mass/Vol] 0.18 ng/mL 0.00-0.09 [facility] Comment on above: A procalcitonin (PCT ) [...] 0.0 10 3/mcL Normal 0.0-0.3 [facility] ([place]) Comment on above: Performed By: #### G , BMP #### [address] [address] Basophils/100 WBC (Bld) 0.7 % Normal 0.0-2.5 [facility] ([place]) Comment on above: Performed By: #### G FR, BMP #### [address] [address] Eosinophil, Absolute 0.6 10 3/mcL Normal 0.0-0.7 [facility] ([place]) Comment on above: Performed By: #### G , BMP #### [address] [address] Eosinophils/100 WBC (Bld) 7.7 % High 0.0-6.0 [facility] ([place]) Comment on above: Performed By: #### G FR, BMP #### [address] [address] Lymphocyte, Absolute 0.9 10 3/mcL Normal 0.9-4.3 [facility] ([place]) Comment on above: Performed By: #### G FR, BMP #### [address] [address] Lymphocytes/100 WBC (Bld) 11.6 % Low 20.0-40.0 [facility] ([place]) Comment on above: Performed By: #### G FR, BMP #### [address] [address] Monocyte, Absolute 1.0 10 3/mcL Normal 0.1-1.4 [facility] ([place]) Comment on above: Performed By: #### G FR, BMP #### [address] [address] Monocytes/100 WBC (Bld) 13.5 % High 2.0-13.0 [facility] ([place]) Comment on above: Performed By: #### G FR, BMP #### [address] [address] Neutrophils/100 WBC (Bld) 66.5 % Normal 50.0-75.0 [facility] ([place]) Comment on above: Performed By: #### G FR, BMP #### [address] [address] .GFRon 01-27-2022 GFR >60 Normal [facility] ([place]) Comment on above: Result Comment: GFR Population [...] Performed By: #### Fannie HARPER, BMP #### [address] [address] GFR Non- >60 Normal [facility] ([place]) Comment on above: Result Comment: GFR Population [...] Performed By: #### Fannie HARPER, BMP #### [place] [address] .MDWon 01-27-2022 Monocyte Distribution Width Not performed Normal 0.00-20.00 [facility] ([place]) Comment on above: Result Comment: MDW testing performed only on adult ER patients between the ages of 18-89 years. Performed By: #### Fannie HARPER, BMP #### [place] [address] .NEUABSon 01-27-2022 Neutrophil, Absolute 5.0 10 3/mcL Normal 2.3-8.1 [facility] ([place]) Comment on above: Performed By: #### Fannie HARPER, BMP #### [place] [address] BMPon 01-27-2022 BUN/Creatinine Ratio 16.9 ratio Normal 10.0-22.0 [facility] ([place]) Comment on above: Performed By: #### Fannie HARPER, BMP #### [place] [address] Calcium [Mass/Vol] 10.0 mg/dL Normal 8.7-10.4 [facility] ([place]) Comment on above: Performed By: #### Fannie HARPER, BMP #### [address] [address] Chloride [Moles/Vol] 108 mmol/L Normal 98-110 [facility] ([place]) Comment on above: Performed By: #### Fannie HARPER, BMP #### [address] [address] CO2 [Moles/Vol] 28 mmol/L Normal 22-32 [facility] ([place]) Comment on above: Performed By: #### Fannie HARPER, BMP #### [address] [address] Creatinine [Mass/Vol] 0.89 mg/dL Normal 0.60-1.40 [facility] ([place]) Comment on above: Performed By: #### Fannie HARPER, BMP #### [address] [address] Electrolyte Balance 6.0 mEq/L Normal 4.0-15.0 [facility] ([place]) Comment on above: Performed By: #### Fannie HARPER, BMP #### [address] [address] Glucose [Mass/Vol] 106 mg/dL Normal 82-115 [facility] ([place]) Comment on above: Performed By: #### Fannie HARPER, BMP #### [address] [address] Potassium [Moles/Vol] 4.3 mmol/L Normal 3.5-5.0 [facility] ([place]) Comment on above: Performed By: #### Fannie HARPER, BMP #### [address] [address] Sodium [Moles/Vol] 142 mmol/L Normal 136-145 [facility] ([place]) Comment on above: Performed By: #### Fannie HARPER, BMP #### [address] [address] Urea nitrogen [Mass/Vol] 15.0 mg/dL Normal 8.0-22.0 [facility] ([place]) Comment on above: Performed By: #### Fannie HARPER, BMP #### [address] [address] CBCon 07-07-2022 Erythrocyte distribution width (RBC) [Ratio] 13.8 % Normal 11.5-15.5 [facility] ([place]) Comment on above: Performed By: #### Fannie HARPER, BMP #### [place] [address] Hematocrit (Bld) [Volume fraction] 41.2 % Normal 40.0-52.0 [facility] ([place]) Comment on above: Performed By: #### Fannie HARPER, BMP #### [place] [address] Hgb 14.1 G/dL Normal 13.0-17.5 [facility] ([place]) Comment on above: Performed By: #### Fannie HARPER, BMP #### [place] [address] MCH (RBC) [Entitic mass] 34.8 pg High 27.0-33.0 [facility] ([place]) Comment on above: Performed By: #### Fannie HARPER, BMP #### [place] [address] MCHC 34.3 G/dL Normal 32.0-36.0 [facility] ([place]) Comment on above: Performed By: #### Fannie HARPER, BMP #### [place] [address] MCV (RBC) [Entitic vol] 101.7 fL High 81.0-100.0 [facility] ([place]) Comment on above: Performed By: #### Fannie HARPER, BMP #### [place] [address] Platelet 236 10 3/mcL Normal 150-450 [facility] ([place]) Comment on above: Performed By: #### Fannie HARPER, BMP #### [place] [id number] Platelet mean volume (Bld) [Entitic vol] 8.1 fL Normal 6.4-10.5 [facility] ([place]) Comment on above: Performed By: #### Fannie HARPER, BMP #### [place] [id number] RBC 4.05 10 6/mcL Low 4.50-6.00 [facility] ([place]) Comment on above: Performed By: #### G , SANDRA #### [address] [address] WBC 7.4 10 3/mcL Normal 4.5-10.8 [facility] ([place]) Comment on above: Performed By: #### G , SANDRA #### [address] [address] LABORATORYOrdered By: SYSTEM SYSTEM on 01-27-2022 Basophils [...] Chemistry and C hemistry - challengeOrdered By: Ad [employer] SYSTEM on 11-30-2021 CO2 [Moles/Vol] 26 mmol/L Invalid Interpretation Code 22 - 32 mEq/L ADM [facility] Sodium [Moles/Vol] 138 mmol/L Invalid Interpretation Code 136 - 145 mEq/L [facility] Laboratory - Hematology and Cell countsOrdered By: Ad [employer] SYSTEM on 11-30-2021 Basophils (Bld) [#/Vol] 0.10 [...] 6.00 10^6/mcL AH Remisol SS LABORATORYOrdered By: [employer] SYSTEM on 11-29-2021 Albumin BCP dye [Mass/Vol] [...] [degF] Dr. Valeriano Beasley MD Work Phone: 7(198)672-237698 [place] [address] 01-23-2025 21:38-0400 Diastolic blood pressure 87 mm[Hg] Dr. Valeriano Beasley MD Work Phone: 8(566)468-320698 [place] [address] 01-23-2025 21:38-0400 Heart rate 70 /min Dr. Valeriano Beasley MD Work Phone: 2(555)234-481798 [place] [address] 01-23-2025 21:38-0400 Respiratory rate 16 /min Dr. Valeriano Beasley MD Work Phone: 9(236)484-797598 [place] [address] 01-23-2025 21:38-0400 SaO2% (BldA) [Mass fraction] 97 % Dr. Valeriano Beasley MD Work Phone: 4(800)579-233198 [place] [address] 01-23-2025 21:38-0400 Systolic blood pressure 155 mm[Hg] Dr. Valeriano Beasley MD Work Phone: 9(773)956-502598 [place] [address] 01-23-2025 19:30-0400 Body height 177.[address] Valeriano Beasley MD Work Phone: 3(761)594-291298 [place] [address] 01-23-2025 19:30-0400 Body mass index (BMI) [Ratio] 29.9 kg/m2 Dr. Valeriano Beasley MD Work Phone: 1(523)758-612998 [place] [address] 01-23-2025 19:30-0400 Body weight 94.[address] Valeriano Beasley MD Work Phone: 1(139)818-279498 [place] [address] 01-01-2025 09:50-0400 Body mass index (BMI) [Ratio] 31.13 kg/m2 Suzanna Dawson PA-C Work Phone: [facility] 01-01-2025 09:50-0400 Body temperature 97.81 [degF] Suzanna Dawson PA-C Work Phone: [facility] 01-01-2025 09:50-0400 Body weight 97.52 kg Suzanna Dawson PA-C Work Phone: [facility] 01-01-2025 09:50-0400 Diastolic blood pressure 80 mm[Hg] Suzanna Dawson PA-C Work Phone: [facility] 01-01-2025 09:50-0400 Heart rate 72 /min Suzanna Dawson PA-C Work Phone: [facility] 01-01-2025 09:50-0400 Respiratory rate 18 /min Suzanna Dawson PA-C Work Phone: [facility] 01-01-2025 09:50-0400 SaO2% (BldA) [Mass fraction] 96 % Suzanna Dawson PA-C Work Phone: [facility] 01-01-2025 09:50-0400 Systolic blood pressure 122 mm[Hg] Suzanna Dawson PA-C Work Phone: [facility] 12-30-2024 09:35-0400 Body height [address] Valeriano Beasley MD Work Phone: [facility] 12-30-2024 09:35-0400 Body weight 95.[address] Valeriano Beasley MD Work Phone: [facility] 12-30-2024 08:00-0400 Body temperature 98.1 [degF] Dr. Valeriano Beasley MD Work Phone: [facility] 12-30-2024 08:00-0400 Diastolic blood pressure 85 mm[Hg] Dr. Valeriano Beasley MD Work Phone: [facility] 12-30-2024 08:00-0400 Heart rate 73 /min Dr. Valeriano Beasley MD Work Phone: [facility] 12-30-2024 08:00-0400 Respiratory rate 18 /min Dr. Valeriano Beasley MD Work Phone: [facility] 12-30-2024 08:00-0400 SaO2% (BldA) [Mass fraction] 95 % Dr. Valeriano Beasley MD Work Phone: 2(195)488-153900 [place] [address] 12-30-2024 08:00-0400 Systolic blood pressure 159 mm[Hg] Dr. Valeriano Beasley MD Work Phone: 2(376)783-245698 [place] [address] 12-30-2024 05:56-0400 Body mass index (BMI) [Ratio] 30.2 kg/m2 Dr. Valeriano Beasley MD Work Phone: 6(854)897-346598 [place] [address] 12-29-2024 11:00-0400 Inhaled oxygen flow rate 2 L/min Dr. Valeriano Beasley MD Work Phone: 8(130)930-954798 [place] [address] 12-29-2024 09:00-0400 Inhaled oxygen concentration 30 % Dr. Valeriano Beasley MD Work Phone: 7(261)157-109298 [place] [address] 12-27-2024 15:15-0400 Diastolic blood pressure 67 mm[Hg] Dr. Valeriano Beasley MD Work Phone: 9(023)409-624498 [place] [address] 12-27-2024 15:15-0400 Heart rate 60 /min Dr. Valeriano Beasley MD Work Phone: 1(785)043-649398 [place] [address] 12-27-2024 15:15-0400 Respiratory rate 14 /min Dr. Valeriano Beasley MD Work Phone: 2(828)095-208398 [place] [address] 12-27-2024 15:15-0400 SaO2% (BldA) [Mass fraction] 97 % Dr. Valeriano Beasley MD Work Phone: 0(136)072-088898 [place] [address] 12-27-2024 15:15-0400 Systolic blood pressure 100 mm[Hg] Dr. Valeriano Beasley MD Work Phone: 7(100)864-830498 [place] [address] 12-27-2024 14:58-0400 Body temperature 99 [degF] Dr. Valeriano Beasley MD Work Phone: 7(382)836-085198 [place] [address] 12-27-2024 13:42-0400 Inhaled oxygen concentration 35 % Dr. Valeriano Beasley MD Work Phone: 5(443)461-406398 [place] [address] 12-27-2024 13:13-0400 Body height 177.[address] Valeriano Beasley MD Work Phone: 9(104)552-478098 [place] [address] 12-27-2024 13:13-0400 Body mass index (BMI) [Ratio] 30 kg/m2 Dr. Valeriano Beasley MD Work Phone: [facility] 12-27-2024 13:13-0400 Body weight 95.[address] Valeriano Beasley MD Work Phone: [facility] 12-23-2024 14:11-0400 Body mass index (BMI) [Ratio] 30.14 kg/m2 Patria Khanna Jr., MD Work Phone: [facility] 12-23-2024 [id number] Body weight 94.44 kg Patria Khanna Jr., MD Work Phone: [facility] 12-23-2024 14:11-0400 Diastolic blood pressure 82 mm[Hg] Patria Khanna Jr., MD Work Phone: [facility] 12-23-2024 14:11-0400 Heart rate 68 /min Patria Khanna Jr., MD Work Phone: [facility] 12-23-2024 14:11-0400 Respiratory rate 18 /min Patria Khanna Jr., MD Work Phone: [facility] 12-23-2024 14:11-0400 SaO2% (BldA) [Mass fraction] 94 % Patria Khanna Jr., MD Work Phone: [facility] 12-23-2024 14:11-0400 Systolic blood pressure 128 mm[Hg] Patria Khanna Jr., MD Work Phone: [facility] 11-05-2024 07:36-0400 Body mass index (BMI) [Ratio] 29.8 kg/m2 Dr. Valeriano Beasley MD Work Phone: [facility] 11-05-2024 07:36-0400 Body weight 94.[address] Valeriano Beasley MD Work Phone: [facility] 11-05-2024 07:36-0400 Diastolic blood pressure 72 mm[Hg] Dr. Valeriano Beasley MD Work Phone: [facility] 11-05-2024 07:36-0400 Heart rate 70 /min Dr. Valeriano Beasley MD Work Phone: [facility] 11-05-2024 07:36-0400 Respiratory rate 18 /min Dr. Valeriano Beasley MD Work Phone: [facility] 11-05-2024 07:36-0400 SaO2% (BldA) [Mass fraction] 95 % Dr. Valeriano Beasley MD Work Phone: [facility] 11-05-2024 07:36-0400 Systolic blood pressure 113 mm[Hg] Dr. Valeriano Beasley MD Work Phone: [facility] 11-01-2024 10:56-0400 Body mass index (BMI) [Ratio] 29.68 kg/m2 Ni Sauceda DENTIST ATTENDANT.LIGHT RAIL SIG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 Work Phone: [facility] 11-01-2024 10:56-0400 Body weight 93 kg Ni Sauceda DENTIST ATTENDANT.LIGHT RAIL SIG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 Work Phone: [facility] 11-01-2024 10:56-0400 Diastolic blood pressure 73 mm[Hg] Ni Sauceda APRN.LIGHT RAIL SIG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 Work Phone: [facility] 11-01-2024 10:56-0400 Systolic blood pressure 129 mm[Hg] Ni Sauceda APRN.LIGHT RAIL SIG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 Work Phone: [facility] 10-23-2024 13:09-0400 Body mass index (BMI) [Ratio] 29.97 kg/m2 Stephanie Masci DO Work Phone: [facility] 10-23-2024 13:09-0400 Body temperature 98.6 [degF] Stephanie Masci DO Work Phone: [facility] 10-23-2024 13:09-0400 Body weight 93.89 kg Stephanie Masci DO Work Phone: [facility] 10-23-2024 13:09-0400 Diastolic blood pressure 76 mm[Hg] Stephanie Renettai DO Work Phone: [facility] 10-23-2024 13:09-0400 Heart rate 83 /min Stephanie Masci DO Work Phone: [facility] 10-23-2024 13:09-0400 SaO2% (BldA) [Mass fraction] 97 % Stephanie Masci DO Work Phone: [facility] 10-23-2024 13:09-0400 Systolic blood pressure 126 mm[Hg] Stephanie Masci DO Work Phone: [facility] 09-25-2024 14:07-0500 Body height 177 cm Stephanie Masci DO Work Phone: [facility] 09-25-2024 14:07-0500 Body mass index (BMI) [Ratio] 30.55 kg/m2 Stephanie Masci DO Work Phone: [facility] 09-25-2024 14:07-0500 Body temperature 98.8 [degF] Stephanie Masci DO Work Phone: [facility] 09-25-2024 14:07-0500 Body weight 95.71 kg Stephanie Masci DO Work Phone: [facility] 09-25-2024 14:07-0500 Diastolic blood pressure 83 mm[Hg] Stephanie Masci DO Work Phone: [facility] 09-25-2024 14:07-0500 Heart rate 79 /min Stephanie Masci DO Work Phone: [facility] 09-25-2024 14:07-0500 SaO2% (BldA) [Mass fraction] 96 % Stephanie Masci DO Work Phone: [facility] 09-25-2024 14:07-0500 Systolic blood pressure 134 mm[Hg] Stephanie Masci DO Work Phone: [facility] 09-19-2024 14:11-0500 Body height 177.[address] Valeriano Beasley MD Work Phone: [facility] 09-19-2024 14:11-0500 Body mass index (BMI) [Ratio] 29.9 kg/m2 Dr. Valeriano Beasley MD Work Phone: [facility] 09-19-2024 14:11-0500 Body weight 94.[address] Valeriano Beasley MD Work Phone: 9(165)441-516400 [place] [address] 09-19-2024 14:11-0500 Diastolic blood pressure 70 mm[Hg] Dr. Valeriano Beasley MD Work Phone: 8(670)530-794600 [place] [address] 09-19-2024 14:11-0500 Heart rate 63 /min Dr. Valeriano Beasley MD Work Phone: 2(183)560-905000 [place] [address] 09-19-2024 14:11-0500 SaO2% (BldA) [Mass fraction] 97 % Dr. Valeriano Beasley MD Work Phone: 2(919)441-663300 [place] [address] 09-19-2024 14:11-0500 Systolic blood pressure 130 mm[Hg] Dr. Valeriano Beasley MD Work Phone: 8(014)988-013400 [place] [address] 08-30-2024 15:08-0500 Body mass index (BMI) [Ratio] 30.57 kg/m2 Patria Khanna Jr., MD Work Phone: 6(992)197-745864 [place] [address] 08-30-2024 15:08-0500 Body weight 93.08 kg Patria Khanna Jr., MD Work Phone: [facility] 08-30-2024 15:08-0500 Diastolic blood pressure 84 mm[Hg] Patria Khanna Jr., MD Work Phone: [facility] 08-30-2024 15:08-0500 Heart rate 64 /min Patria Khanna Jr., MD Work Phone: [facility] 08-30-2024 15:08-0500 SaO2% (BldA) [Mass fraction] 95 % Patria Khanna Jr., MD Work Phone: [facility] 08-30-2024 15:08-0500 Systolic blood pressure 145 mm[Hg] Patria Khanna Jr., MD Work Phone: [facility] 08-19-2024 13:14-0500 Body mass index (BMI) [Ratio] 30.71 kg/m2 Amudha Pazhanisamy DO Work Phone: [facility] 08-19-2024 13:14-0500 Body weight 93.5 kg Amudha Pazhanisamy DO Work Phone: [facility] 08-19-2024 13:14-0500 Diastolic blood pressure 61 mm[Hg] Amudha Pazhanisamy DO Work Phone: [facility] 08-19-2024 13:14-0500 Heart rate 55 /min Amudha Pazhanisamy DO Work Phone: [facility] 08-19-2024 13:14-0500 SaO2% (BldA) [Mass fraction] 97 % Amudha Pazhanisamy DO Work Phone: [facility] 08-19-2024 13:14-0500 Systolic blood pressure 95 mm[Hg] Amudha Pazhanisamy DO Work Phone: [facility] 07-31-2024 19:01-0500 Body mass index (BMI) [Ratio] 31.13 kg/m2 Valeriano Beasley MD Work Phone: [facility] 07-31-2024 19:01-0500 Body weight 94.8 kg Valeriano Beasley MD Work Phone: [facility] 07-31-2024 19:01-0500 Diastolic blood pressure 74 mm[Hg] Valeriano Beasley MD Work Phone: [facility] 07-31-2024 19:01-0500 Heart rate 68 /min Valeriano Beasley MD Work Phone: [facility] 07-31-2024 19:01-0500 Respiratory rate 16 /min Valeriano Beasley MD Work Phone: [facility] 07-31-2024 19:01-0500 Systolic blood pressure 126 mm[Hg] Valeriano Beasley MD Work Phone: [facility] 07-18-2024 14:16-0500 Body temperature 98.5 [degF] Dr. Valeriano Beasley MD Work Phone: 6(986)121-530400 [place] [address] 07-18-2024 14:16-0500 Diastolic blood pressure 79 mm[Hg] Dr. Valeriano Beasley MD Work Phone: 3(199)430-442898 [place] [address] 07-18-2024 14:16-0500 Heart rate 73 /min Dr. Valeriano Beasley MD Work Phone: 8(952)256-108298 [place] [address] 07-18-2024 14:16-0500 Respiratory rate 19 /min Dr. Valeriano Beasley MD Work Phone: 2(060)737-998198 [place] [address] 07-18-2024 14:16-0500 SaO2% (BldA) [Mass fraction] 96 % Dr. Valeriano Beasley MD Work Phone: 7(610)572-927698 [place] [address] 07-18-2024 14:16-0500 Systolic blood pressure 155 mm[Hg] Dr. Valeriano Beasley MD Work Phone: 8(812)311-330898 [place] [address] 07-18-2024 10:16-0500 Body mass index (BMI) [Ratio] 31.2 kg/m2 Dr. Valeriano Beasley MD Work Phone: 2(854)004-371698 [place] [address] 07-18-2024 10:16-0500 Body weight 98.[address] Valeriano Beasley MD Work Phone: 8(440)980-560898 [place] [address] 05-29-2024 12:54-0500 Body mass index (BMI) [Ratio] 30.54 kg/m2 Suzanna HERNANDEZ-C Work Phone: 1(604)835-346464 [place] [address] 05-29-2024 12:54-0500 Body temperature 97.2 [degF] Suzanna Dawson PA-C Work Phone: 0(098)206-333664 [place] [address] 05-29-2024 12:54-0500 Body weight 92.99 kg Suzanna HERNANDEZ-C Work Phone: [facility] 05-29-2024 12:54-0500 Diastolic blood pressure 56 mm[Hg] Suzanna Dawson PA-C Work Phone: 6(968)391-616764 [place] [address] 05-29-2024 12:54-0500 Heart rate 66 /min Suzanna Dawson PA-C Work Phone: [facility] 05-29-2024 12:54-0500 Respiratory rate 18 /min Suzanna Dawson PA-C Work Phone: [facility] 05-29-2024 12:54-0500 SaO2% (BldA) [Mass fraction] 95 % Suzanna Dawson PA-C Work Phone: [facility] 05-29-2024 12:54-0500 Systolic blood pressure 120 mm[Hg] Suzanna Dawson PA-C Work Phone: [facility] 05-01-2024 13:00-0400 Body height 174.5 cm Suzanna Dawson PA-C Work Phone: [facility] 05-01-2024 13:00-0400 Body mass index (BMI) [Ratio] 29.35 kg/m2 Suzanna Dawson PA-C Work Phone: [facility] 05-01-2024 13:00-0400 Body temperature 97.5 [degF] Suzanna Dawson PA-C Work Phone: [facility] 05-01-2024 13:00-0400 Body weight 89.36 kg Suzanna Dawson PA-C Work Phone: [facility] 05-01-2024 13:00-0400 Diastolic blood pressure 62 mm[Hg] Suzanna Dawson PA-C Work Phone: [facility] 05-01-2024 13:00-0400 Heart rate 77 /min Suzanna Dawson PA-C Work Phone: [facility] 05-01-2024 13:00-0400 Respiratory rate 18 /min Suzanna Dawson PA-C Work Phone: [facility] 05-01-2024 13:00-0400 SaO2% (BldA) [Mass fraction] 96 % Suzanna Dawson PA-C Work Phone: [facility] 05-01-2024 13:00-0400 Systolic blood pressure 100 mm[Hg] Suzanna Dawson PA-C Work Phone: [facility] 04-04-2024 11:42-0400 Body mass index (BMI) [Ratio] 31.02 kg/m2 Ni Sauceda DENTIST ATTENDANT.LIGHT RAIL SIG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 Work Phone: [facility] 04-04-2024 11:42-0400 Body weight 92.53 kg Ni Sauceda DENTIST ATTENDANT.LIGHT RAIL SIG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 Work Phone: [facility] 04-04-2024 11:42-0400 Diastolic blood pressure 84 mm[Hg] Ni Sauceda DENTIST ATTENDANT.LIGHT RAIL SIG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 Work Phone: [facility] 04-04-2024 11:42-0400 Heart rate 58 /min Ni Sauceda DENTIST ATTENDANT.LIGHT RAIL SIG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 Work Phone: [facility] 04-04-2024 11:42-0400 Respiratory rate 14 /min Ni Sauceda DENTIST ATTENDANT.LIGHT RAIL SIG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 Work Phone: [facility] 04-04-2024 11:42-0400 Systolic blood pressure 155 mm[Hg] Ni Sauceda DENTIST ATTENDANT.LIGHT RAIL SIG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 Work Phone: [facility] 01-01-2024 16:56-0400 Diastolic blood pressure 80 mm[Hg] Patria Khanna Jr., MD Work Phone: [facility] Comment on above: LT arm adult cuff sitting 01-01-2024 16:56-0400 Systolic blood pressure 142 mm[Hg] Patria Khanna Jr., MD Work Phone: [facility] Comment on above: LT arm adult cuff sitting 01-01-2024 15:40-0400 Body mass index (BMI) [Ratio] 31.38 kg/m2 Patira Khanna Jr., MD Work Phone: [facility] 01-01-2024 15:40-0400 Body weight 93.62 kg Patria Khanna Jr., MD Work Phone: [facility] 01-01-2024 15:40-0400 Heart rate 76 /min Patria Khanna Jr., MD Work Phone: [facility] 01-01-2024 15:40-0400 Respiratory rate 16 /min Patria Khanna Jr., MD Work Phone: [facility] 01-01-2024 15:40-0400 SaO2% (BldA) [Mass fraction] 96 % Patria Khanna Jr., MD Work Phone: [facility] 09-05-2023 10:46-0500 Body height 177.[address] Valeriano Beasley Work Phone: [facility] 09-05-2023 10:46-0500 Body mass index (BMI) [Ratio] 29.9 kg/m2 Dr. Valeriano Beasley Work Phone: 1(425)282-093400 [place] [address] 09-05-2023 10:46-0500 Body weight 94.[address] Valeriano Beasley Work Phone: 5(633)775-342200 [place] [address] 09-05-2023 10:46-0500 Diastolic blood pressure 86 mm[Hg] Dr. Valeriano Beasley Work Phone: 8(896)308-783000 [place] [address] 09-05-2023 10:46-0500 Heart rate 64 /min Dr. Valeriano Beasley Work Phone: [facility] 09-05-2023 10:46-0500 Respiratory rate 18 /min Dr. Valeriano Beasley Work Phone: [facility] 09-05-2023 10:46-0500 SaO2% (BldA) [Mass fraction] 95 % Dr. Valeriano Beasley Work Phone: [facility] 09-05-2023 10:46-0500 Systolic blood pressure 134 mm[Hg] Dr. Valeriano Beasley Work Phone: [facility] 09-01-2023 10:41-0500 Body mass index (BMI) [Ratio] 29.6 kg/m2 Dr. Valeriano Beasley Work Phone: [facility] 09-01-2023 10:41-0500 Body weight 93.[address] Valeriano Beasley Work Phone: [facility] 05-18-2023 10:39-0400 Body weight 91.76 kg Valeriano Beasley MD Work Phone: [facility] 05-18-2023 10:39-0400 Diastolic blood pressure 80 mm[Hg] Valeriano Beasley MD Work Phone: [facility] 05-18-2023 10:39-0400 Heart rate 58 /min Valeriano Beasley MD Work Phone: [facility] 05-18-2023 10:39-0400 SaO2% (BldA) [Mass fraction] 96 % Valeriano Beasley MD Work Phone: [facility] 05-18-2023 10:39-0400 Systolic blood pressure 122 mm[Hg] Valeriano Beasley MD Work Phone: [facility] 04-20-2023 12:38-0400 Diastolic blood pressure 81 mm[Hg] Valeriano Beasley MD Work Phone: [facility] 04-20-2023 12:38-0400 Heart rate 53 /min Valeriano Beasley MD Work Phone: [facility] 04-20-2023 12:38-0400 Systolic blood pressure 152 mm[Hg] Valeriano Beasley MD Work Phone: [facility] 04-20-2023 11:22-0400 Body height 174.6 cm Valeriano Beasley MD Work Phone: [facility] 04-20-2023 11:22-0400 Body weight 91.17 kg Valeriano Beasley MD Work Phone: [facility] 04-20-2023 11:22-0400 Respiratory rate 16 /min Valeriano Beasley MD Work Phone: [facility] 12-09-2022 11:00-0400 Body height 177.[address] Valeriano Beasley Work Phone: [facility] 12-09-2022 11:00-0400 Body mass index (BMI) [Ratio] 27.6 kg/m2 Dr. Valeriano Beasley Work Phone: 0(636)733-682700 [place] [address] 12-09-2022 11:00-0400 Body weight 87.[address] Valeriano Beasley Work Phone: 3(774)762-740600 [place] [address] 12-09-2022 11:00-0400 Diastolic blood pressure 71 mm[Hg] Dr. Valeriano Beasley Work Phone: 5(191)144-124998 [place] [address] 12-09-2022 11:00-0400 Heart rate 59 /min Dr. Valeriano Beasley Work Phone: 9(859)576-794598 [place] [address] 12-09-2022 11:00-0400 Respiratory rate 16 /min Dr. Valeriano Beasley Work Phone: 1(313)244-095598 [place] [address] 12-09-2022 11:00-0400 Systolic blood pressure 141 mm[Hg] Dr. Valeriano Beasley Work Phone: 6(450)730-095098 [place] [address] 2022 12:59-0400 Body mass index (BMI) [Ratio] 28.3 kg/m2 Dr. Valeriano Beasley Work Phone: 4(618)668-221498 [place] [address] 2022 12:59-0400 Body weight 89.[address] Valeriano Beasley Work Phone: 0(599)674-962398 [place] [address] 2022 12:59-0400 Diastolic blood pressure 76 mm[Hg] Dr. Valeriano Beasley Work Phone: 8(329)729-419498 [place] [address] 2022 12:59-0400 Heart rate 59 /min Dr. Valeriano Beasley Work Phone: 3(937)153-966800 [place] [address] 2022 12:59-0400 SaO2% (BldA) [Mass fraction] 94 % Dr. Valeriano Beasley Work Phone: 1(842)367-644398 [place] [address] 2022 12:59-0400 Systolic blood pressure 152 mm[Hg] Dr. Valeriano Beasley Work Phone: 5(862)587-397200 [place] [address] 10-12-2022 10:09-0400 Body temperature 97.2 [degF] Suzanna Dawson PA-C Work Phone: [facility] 10-12-2022 10:09-0400 Body weight 85.73 kg Suzanna Dawson PA-C Work Phone: [facility] 10-12-2022 10:09-0400 Diastolic blood pressure 80 mm[Hg] Suzanna Dawson PA-C Work Phone: [facility] 10-12-2022 10:09-0400 Heart rate 56 /min Suzanna Dawson PA-C Work Phone: [facility] 10-12-2022 10:09-0400 Respiratory rate 16 /min Suzannaselvin Dawson PA-C Work Phone: [facility] 10-12-2022 10:09-0400 Systolic blood pressure 136 mm[Hg] Suzanna Dawson PA-C Work Phone: [facility] 09-14-2022 14:41-0500 Body weight 88.91 kg Valeriano Beasley MD Work Phone: [facility] 09-14-2022 14:41-0500 Diastolic blood pressure 78 mm[Hg] Valeriano Beasley MD Work Phone: [facility] 09-14-2022 14:41-0500 Heart rate 58 /min Valeriano Beasley MD Work Phone: [facility] 09-14-2022 14:41-0500 Systolic blood pressure 118 mm[Hg] Valeriano Beasley MD Work Phone: [facility] 09-10-2022 11:00-0500 Body temperature 98.9 [degF] Dr. Valeriano Beasley Work Phone: [facility] 09-10-2022 11:00-0500 Diastolic blood pressure 85 mm[Hg] Dr. Valeriano Beasley Work Phone: [facility] 09-10-2022 11:00-0500 Heart rate 81 /min Dr. Valeriano Beasley Work Phone: [facility] 09-10-2022 11:00-0500 Respiratory rate 18 /min Dr. Valeriano Beasley Work Phone: [facility] 09-10-2022 11:00-0500 SaO2% (BldA) [Mass fraction] 95 % Dr. Valeriano Beasley Work Phone: [facility] 09-10-2022 11:00-0500 Systolic blood pressure 141 mm[Hg] Dr. Valeriano Beasley Work Phone: [facility] 09-10-2022 05:55-0500 Body weight 90.[address] Valeriano Beasley Work Phone: [facility] 09-06-2022 15:28-0500 Body height 177.[address] Valeriano Beasley Work Phone: [facility] 09-04-2022 17:45-0500 Inhaled oxygen flow rate 2 L/min Dr. Valeriano Beasley Work Phone: [facility] 09-02-2022 16:04-0500 Body mass index (BMI) [Ratio] 26.9 kg/m2 Dr. Valeriano Beasley Work Phone: [facility] 06-27-2022 08:46-0500 Body height 177.[address] [facility] Work Phone: 06-27-2022 08:46-0500 Body weight 89.[address] [facility] 05-25-2022 09:38-0400 Body weight 92.[address] [facility] 04-25-2022 11:19-0400 Body height 177.[address] [facility] Work Phone: 04-25-2022 11:19-0400 Body weight 90.[address] [facility] 04-18-2022 15:36-0400 Diastolic blood pressure 105 mm[Hg] Valeriano Beasley MD Work Phone: [facility] 04-18-2022 15:36-0400 Systolic blood pressure 175 mm[Hg] Valeriano Beasley MD Work Phone: [facility] 04-18-2022 14:39-0400 Body height 174 cm Valeriano Beasley MD Work Phone: [facility] 04-18-2022 14:39-0400 Body weight 90.36 kg Valeriano Beasley MD Work Phone: [facility] 04-18-2022 14:39-0400 Heart rate 66 /min Valeriano Beasley MD Work Phone: [facility] 04-18-2022 14:39-0400 Respiratory rate 16 /min Valeriano Beasley MD Work Phone: [facility] 03-25-2022 15:31-0400 Body height 177.[address] [facility] Work Phone: 03-25-2022 15:31-0400 Body weight 88.[address] [facility] Work Phone: 03-25-2022 14:44-0400 Body mass index (BMI) [Ratio] 27.1 kg/m2 [facility] Work Phone: 03-25-2022 14:44-0400 Body temperature 98.7 [degF] [facility] Work Phone: 03-25-2022 14:44-0400 Diastolic blood pressure 80 mm[Hg] [facility] Work Phone: 03-25-2022 14:44-0400 Heart rate 56 /min [facility] Work Phone: 03-25-2022 14:44-0400 Respiratory rate 14 /min [facility] Work Phone: 03-25-2022 14:44-0400 SaO2% (BldA) [Mass fraction] 95 % [facility] Work Phone: 03-25-2022 14:44-0400 Systolic blood pressure 134 mm[Hg] [facility] Work Phone: 01-27-2022 14:00-0400 Diastolic blood pressure 80 mm[Hg] DR FRANKLIN NASH MD [address] [place] [address] 01-27-2022 14:00-0400 Heart rate 64 /min DR FRANKLIN NASH MD [address] [place] [address] 01-27-2022 14:00-0400 Mean blood pressure 97 mm[Hg] DR FRANKLIN NASH MD [address] [place] [address] 01-27-2022 14:00-0400 Systolic blood pressure 130 mm[Hg] DR FRANKLIN NASH MD [address] [place] [address] 01-27-2022 13:15-0400 Diastolic blood pressure 72 mm[Hg] DR FRANKLIN NASH MD [address] [place] [address] 01-27-2022 13:15-0400 Heart rate 65 /min DR FRANKLIN NASH MD [address] [place] [address] 01-27-2022 13:15-0400 Mean blood pressure 90 mm[Hg] DR FRANKLIN NASH MD [address] [place] [address] 01-27-2022 13:15-0400 Systolic blood pressure 127 mm[Hg] DR FRANKLIN NASH MD [address] [place] [address] 01-27-2022 13:00-0400 Diastolic blood pressure 75 mm[Hg] DR FRANKLIN NASH MD [address] [place] [address] 01-27-2022 13:00-0400 Heart rate 66 /min DR FRANKLIN NASH MD [address] [place] [address] 01-27-2022 13:00-0400 Mean blood pressure 92 mm[Hg] DR FRANKLIN NASH MD [address] [place] [address] 01-27-2022 12:08-0400 Reason For Taking VItal Signs DR FRANKLIN NASH MD [address] [place] [address] 01-27-2022 12:08-0400 Respiratory rate 18 /min DR FRANKLIN NASH MD [address] [place] [address] 01-27-2022 11:24-0400 Reason For Taking VItal Signs DR FRANKLIN NASH MD [address] [place] [address] 01-27-2022 11:24-0400 Respiratory rate 16 /min DR FRANKLIN NASH MD [address] [place] [address] 01-27-2022 06:11-0400 Body height 177.[address] FRANKLIN NASH MD [address] [place] [address] 01-27-2022 06:11-0400 Body temperature 97.34 [degF] DR FRANKLIN NASH MD [address] [place] [address] 01-27-2022 06:11-0400 Body weight 88.[address] FRANKLIN NASH MD [address] [place] [address] 01-27-2022 06:11-0400 Body weight 28.12 kg/m2 DR FRANKLIN NASH MD [address] [place] [address] 01-27-2022 06:11-0400 diastolic 85 mm[Hg] DR FRANKLIN NASH MD [address] [place] [address] 01-27-2022 06:11-0400 Heart rate 56 /min DR FRANKLIN NASH MD [address] [place] [address] 01-27-2022 06:11-0400 Respiratory rate 16 /min DR FRANKLIN NASH MD [address] [place] [address] 01-27-2022 06:11-0400 systolic 149 mm[Hg] DR FRANKLIN NASH MD [address] [place] [address] 12-01-2021 10:25-0400 Diastolic blood pressure 78 mm[Hg] CHRISTINE EDWARDS MD [address] [place] [address] 12-01-2021 10:25-0400 Heart rate 85 /min CHRISTINE EDWARDS MD [facility] 12-01-2021 10:25-0400 Respiratory rate 20 /min CHRISTINE EDWARDS MD [facility] 12-01-2021 10:25-0400 Systolic blood pressure 142 mm[Hg] CHRISTINE EDWARDS MD [facility] 12-01-2021 10:18-0400 Heart rate 93 /min CHRISTINE EDWARDS MD [facility] 12-01-2021 08:01-0400 Heart rate 68 /min CHRISTINE EDWARDS MD [facility] 12-01-2021 06:26-0400 Body temperature 97.7 [degF] CHRISTINE EDWARDS MD [facility] 12-01-2021 06:26-0400 Diastolic blood pressure 62 mm[Hg] CHRISTINE EDWARDS MD [facility] 12-01-2021 06:26-0400 Reason For Taking VItal Signs CHRISTINE EDWARDS MD [facility] 12-01-2021 06:26-0400 Respiratory rate 20 /min CHRISTINE EDWARDS MD [facility] 12-01-2021 06:26-0400 Systolic blood pressure 130 mm[Hg] CHRISTINE EDWARDS MD [facility] 12-01-2021 04:04-0400 Diastolic blood pressure 70 mm[Hg] CHRISTINE EDWARDS MD [facility] 12-01-2021 04:04-0400 Mean blood pressure 89 mm[Hg] CHRISTINE EDWARDS MD [facility] 12-01-2021 04:04-0400 Reason For Taking VItal Signs CHRISTINE EDWARDS MD [facility] 12-01-2021 04:04-0400 Respiratory rate 20 /min CHRISTINE EDWARDS MD [facility] 12-01-2021 04:04-0400 Systolic blood pressure 128 mm[Hg] CHRISTINE EDWARDS MD [facility] 11-30-2021 22:06-0400 Body temperature 98.24 [degF] CHRISTINE EDWARDS MD [facility] 11-30-2021 22:06-0400 Mean blood pressure 103 mm[Hg] CHRISTINE EDWARDS MD [facility] 11-30-2021 22:06-0400 Reason For Taking VItal Signs CHRISTINE EDWARDS MD [facility] 11-30-2021 19:22-0400 Diastolic Blood Pressure NBP 82 1 CHRISTINE EDWARDS MD [facility] 11-30-2021 19:22-0400 Systolic Blood Pressure NBP 138 1 CHRISTINE EDWARDS MD [facility] 11-30-2021 19:01-0400 Body temperature 97.7 [degF] CHRISTINE EDWARDS MD [facility] 11-30-2021 19:01-0400 Mean blood pressure 95 mm[Hg] CHRISTINE EDWARDS MD [facility] 11-30-2021 13:20-0400 SaO2% (BldA) [Mass fraction] 96.3 % CHRISTINE EDWARDS MD [facility] 11-30-2021 11:33-0400 Heart rate 56 /min CHRISTINE EDWARDS MD [facility] 11-30-2021 09:52-0400 Heart rate 64 /min CHRISTINE EDWARDS MD [facility] 11-30-2021 07:29-0400 Heart rate 52 /min CHRISTINE EDWARDS MD [facility] 11-30-2021 02:55-0400 Diastolic Blood Pressure NBP 72 1 CHRISTINE EDWARDS MD [facility] 11-30-2021 02:55-0400 Mean blood pressure 85 mm[Hg] CHRISTINE EDWARDS MD [facility] 11-30-2021 02:55-0400 Systolic Blood Pressure NBP 118 1 CHRISTINE EDWARDS MD [facility] 11-30-2021 02:22-0400 Diastolic Blood Pressure NBP 52 1 CHRISTINE EDWARDS MD [facility] 11-30-2021 02:22-0400 Mean blood pressure 68 mm[Hg] CHRISTINE EDWARDS MD [facility] 11-30-2021 02:22-0400 Systolic Blood Pressure NBP 104 1 CHRISTINE EDWARDS MD [facility] 11-30-2021 00:05-0400 Mean blood pressure 85 mm[Hg] CHRISTINE EDWARDS MD [facility] 11-29-2021 16:55-0400 Body height 177.8 cm CHRISTINE EDWARDS MD [facility] 11-29-2021 16:55-0400 Body weight 94.5 kg CHRISTINE EDWARDS MD [facility] 11-29-2021 16:55-0400 Body weight 29.89 kg/m2 CHRISTINE EDWARDS MD [facility] 11-29-2021 15:00-0400 Diastolic blood pressure 141 mm[Hg] DONAVON NUNEZ DO [facility] 11-29-2021 15:00-0400 Heart rate 59 /min DONAVON NUNEZ DO [facility] 11-29-2021 15:00-0400 Respiratory rate 20 /min DONAVON NUNEZ DO [facility] 11-29-2021 15:00-0400 Systolic blood pressure 155 mm[Hg] DONAVON NUNEZ DO [facility] 11-29-2021 14:56-0400 Body weight 95.4 kg DONAVON NUNEZ DO [facility] 11-29-2021 14:34-0400 Body temperature 98.6 [degF] DONAVON NUNEZ DO [facility] 11-29-2021 14:34-0400 Body weight 95.4 kg DONAVON NUNEZ DO [facility] 11-29-2021 14:34-0400 Diastolic blood pressure 97 mm[Hg] DONAVON NUNEZ DO [facility] 11-29-2021 14:34-0400 Heart rate 40 /min DONAVON NUNEZ DO [facility] 11-29-2021 14:34-0400 Respiratory rate 22 /min DONAVON NUNEZ DO [facility] 11-29-2021 14:34-0400 Systolic blood pressure 138 mm[Hg] DONAVON NUNEZ DO [facility] Encounters Encounter Date Encounter Type Care Provider Facility Start: 01-23-2025 Evaluation and management of inpatient Dr. Tessa Hampton DO -Progressive Care Unit Work Phone: Start: 01-23-2025 End: 01-23-2025 ambulatory Valeriano Beasley MD Work Phone: [facility] Comment on above: RECENT GI BLEED Rectal Bleeding Start: 01-01-2025 End: 01-01-2025 ambulatory VALERIANO Lance:[facility] Start: 01-01-2025 End: 01-01-2025 Patient encounter procedure Suzanna Dawson PA-C Work Phone: [facility] Comment on above: Hospital discharge f ollow-up (Primary Dx); Essential hypertension, benign Start: 12-30-2024 Non-patient / Non-visit Dr. Alexi Flanagan [facility] Work Phone: Start: 12-30-2024 Non-patient / Non-visit Dr. Homer avila DO -[facility] Start: 12-29-2024 Non-patient / Non-visit Dr. Alexi Flanagan [facility] Work Phone: Start: 12-28-2024 Non-patient / Non-visit Dr. Alexi Flanagan [facility] Work Phone: Start: 12-27-2024 Non-patient / Non-visit Dr. Flakita Florentino [facility] Work Phone: Start: 12-27-2024 ambulatory Flakita Florentino Facility:[facility] Start: 12-27-2024 End: 12-30-2024 Evaluation and management of inpatient Dr. Flakita Florentino -Intensive Care Unit Work Phone: Start: 12-26-2024 End: 12-26-2024 Chart abstracting Valeriano Beasley MD Work Phone: [facility] Comment on above: Outside Cardiology Start: 12-23-2024 End: 12-23-2024 Patient encounter procedure Patria Khanna MD Work Phone: Neurology Comment on above: Peripheral polyneuro mikala (Primary Dx); Low vitamin B12 level; Drinks beer Start: 12-23-2024 End: 12-23-2024 ambulatory PATRIA KHANNA JR Facility:[facility] Start: 11-14-2024 End: 01-14-2025 Follow-up encounter Nyla De Jesus DO Work Phone: Rheumatology Start: 11-12-2024 End: 11-12-2024 Chart abstracting Valeriano Beasley MD Work Phone: [facility] Comment on above: Outside Urology Start: 11-07-2024 End: 01-07-2025 Follow-up encounter Ni Sauceda APRN.CNP Work Phone: [facility] Comment on above: Results Start: 11-06-2024 ambulatory VALERIANO BEASLEY Facili ty:[facility] Start: 11-06-2024 End: 11-06-2024 Subsequent hospital visit by physician [facility] Work Phone: Radiology Comment on above: Screening for abdomi nal aortic aneurysm [Z13.6] Start: 11-05-2024 End: 11-12-2024 Chart abstracting Flakita Pastor MA [facility] Comment on above: external document (L ab results) Start: 11-05-2024 End: 11-05-2024 Patient encounter procedure Estefany LAMBERT -[facility] Work Phone: Start: 11-05-2024 End: 11-05-[address] Valeriano Beasley MD Work Phone: [facility] Work Phone: Start: 11-05-2024 End: 11-05-2024 ambulatory Shubham Francis Facility:[facility] Start: 11-01-2024 End: 11-01-2024 Patient encounter procedure Ni Sauceda APRN.LIGHT RAIL SIG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 Work Phone: [facility] Comment on above: Essential hypertensi on, benign (Primary Dx); Alcoholic cirrhosis, unspecified whether ascites present (HCC); Advance directive discussed with patient; Valvular heart disease; Lumbosacral radiculopathy at L5; Mixed hyperlipidemia; Coronary artery disease due to lipid rich plaque; Low vitamin D level; Prostate disorder; Low serum vitamin B12; Medication management; Screening for abdominal aortic aneurysm Start: 11-01-2024 End: 11-01-2024 ambulatory VALERIANO BEASLEY Facility:[facility] Start: 10-30-2024 End: 10-30-2024 ambulatory VALERIANO BEASLEY Facility:[facility] Start: 10-29-2024 End: 10-30-2024 Follow-up encounter Stephanie Roy DO Work Phone: Hematology/Oncology Start: 10-23-2024 End: 10-23-2024 ambulatory VALERIANO BEASLEY Facility:[facility] Start: 10-23-2024 End: 10-23-2024 Subsequent hospital visit by physician Vonnie [facility] Chad Work Phone: Radiology Comment on above: Monoclonal gammopath y [D47.2] Start: 10-23-2024 End: 10-23-2024 Chart abstracting Ganesh White MA [facility] Comment on above: Results Start: 10-23-2024 End: 10-23-2024 ambulatory Stephanie Roy DO Work Phone: Hematology/Oncology Comment on above: Monoclonal gammopath y (Primary Dx); Neuropathy - (NOS) Start: 10-23-2024 End: 10-23-2024 Patient encounter procedure Stephanie Roy DO Work Phone: Hematology/Oncology Start: 10-21-2024 End: 10-21-2024 ambulatory VALERIANO BEASLEY Facility:[facility] Start: 10-11-2024 End: 10-11-[address] Valeriano Beasley MD Work Phone: [facility] Work Phone: Start: 10-11-2024 End: 10-11-[address] Geovani Barron MD -Laboratory, Specimen Work Phone: Start: 10-11-2024 End: 10-11-2024 ambulatory Valeriano Beasley Facility:[facility] Start: 10-09-2024 Encounter for preprocedural cardiovascular examination Geovani Barron [facility] Start: 09-27-2024 End: 10-01-2024 Telephone encounter Stephanie Roy DO Work Phone: Hematology/Oncology Comment on above: Results Start: 09-26-2024 End: 09-26-[address] Valeriano Beasley MD Work Phone: [facility] Work Phone: Start: 09-26-2024 End: 09-26-[address] Geovani Barron MD -Pulmonary Services/Neurology Work Phone: Start: 09-25-2024 End: 09-26-2024 ambulatory Stephanie Jacksoni DO Work Phone: Hematology/Oncology Comment on above: Neuropathy - (NOS) ( Primary Dx) Start: 09-25-2024 End: 09-25-2024 Patient encounter procedure Stephanie Roy DO Work Phone: Hematology/Oncology Start: 09-24-2024 End: 09-24-2024 Chart abstracting Valeriano Beasley MD Work Phone: [facility] [place] Comment on above: Outside Imaging (Uro logy/) Start: 09-23-2024 End: 09-23-[address] Valeriano Beasley MD Work Phone: [facility] Work Phone: Start: 09-23-2024 End: 09-23-[address] Geovani Barron MD -Radiology, [facility] Work Phone: Start: 09-23-2024 End: 09-23-2024 ambulatory Valeriano Beasley Facility:[facility] Start: 09-19-2024 End: 09-19-[address] Shubham Blanco MD -[facility] Work Phone: Start: 09-19-2024 End: 09-19-2024 ambulatory Shubham Blanco Facility:[facility] Start: 09-18-2024 End: 09-18-2024 Chart abstracting Ganesh White MA [facility] [place] Comment on above: Results (Outside lab s ) Start: 09-17-2024 End: 09-17-2024 Chart abstracting Valeriano Beasley MD Work Phone: [facility] [place] Comment on above: Outside Zyrg-Noo-RNE Ordered Start: 09-13-2024 End: 09-13-2024 Chart abstracting Valeriano Beasley MD Work Phone: [facility] Comment on above: Outside Wctf-Prq-SBH Ordered Start: 09-12-2024 End: 09-12-[address] Shubham Blanco MD -Laboratory Work Phone: Start: 09-12-2024 End: 09-12-2024 ambulatory Shubham Blanco Facility:[facility] Start: 09-07-2024 End: 09-07-2024 Chart abstracting Valeriano Beasley MD Work Phone: [facility] Comment on above: Outside Imaging Start: 09-06-2024 End: 09-06-[address] Shubham Blanco MD -Cat Scan, [facility] Work Phone: Start: 09-06-2024 End: 09-06-2024 ambulatory Shubham Blanco Facility:[facility] Start: 09-03-2024 End: 09-03-2024 ambulatory Nyla De [...] Start: 08-30-2024 End: 08-30-2024 ambulatory VALERIANO BEASLEY Facility:[facility] Start: 08-30-2024 End: 08-30-2024 Patient encounter procedure Patria Khanna MD Work Phone: Neurology Comment on above: Neuropathy, idiopath ic (Primary Dx); Abnormal SPEP; Positive GALLO (antinuclear antibody); Abnormality of gait; Numbness Start: 08-30-2024 End: 08-30-2024 ambulatory VALERIANO BEASLEY Facility:[facility] Start: 08-28-2024 End: 08-28-2024 Chart abstracting Valeriano Beasley MD Work Phone: [facility] [place] Comment on above: Outside Urology Start: 08-19-2024 End: 08-19-2024 ambulatory JASWINDER REDMOND Facility:[facility] Start: 08-19-2024 End: 08-19-2024 ambulatory VALERIANO BEASLEY Facility:[facility] Start: 08-19-2024 End: 08-19-2024 Office consultation new/estab patient 40 min Arun Christian DO Work Phone: Allergy Comment on above: Angioedema, subseque nt encounter Start: 07-31-2024 End: 07-31-2024 ambulatory VALERIANO BEASLEY Facility:[facility] Start: 07-31-2024 End: 07-31-2024 Patient encounter procedure Valeriano Beasley MD Work Phone: [facility] [place] Comment on above: Angioedema, subseque nt encounter (Primary Dx) Start: 07-19-2024 End: 07-19-2024 Chart abstracting Valeriano Beasley MD Work Phone: [facility] [place] Comment on above: ER Discharge Summary Refill Request Start: 07-18-2024 End: 07-18-2024 Emergency department patient visit Dr. Stan Gilbert DO -Emergency Department Work Phone: Start: 06-05-2024 End: 06-05-2024 Chart abstracting Valeriano Beasley MD Work Phone: [facility] [place] Comment on above: Outside Gastro Start: 06-04-2024 End: 06-04-2024 ambulatory Valeriano Beasley Facility:[facility] Start: 05-30-2024 End: 05-30-2024 Chart abstracting Valeriano Beasley MD Work Phone: [facility] [place] Start: 05-29-2024 End: 05-29-2024 ambulatory VALERIANO BEASLEY Facility:[facility] Start: 05-29-2024 End: 05-29-2024 Office outpatient visit 15 minutes Suzanna Dawson PA-C Work Phone: [facility] Comment on above: Essential hypertensi on, benign (Primary Dx) Start: 05-28-2024 End: 05-28-2024 Chart abstracting Valeriano Beasley MD Work Phone: [facility] Comment on above: Outside Urology Start: 05-20-2024 End: 05-21-2024 Telephone encounter Suzanna Dawson PA-C Work Phone: [facility] [place] Comment on above: Results Start: 05-16-2024 End: 05-16-2024 ambulatory VALERIANO BEASLEY Facility:[facility] Start: 05-14-2024 End: 05-20-2024 Telephone encounter Suzanna Dawson PA-C Work Phone: [facility] [place] Comment on above: Results Start: 05-14-2024 End: 05-14-2024 ambulatory Valeriano Beasley Facility:[facility] Start: 05-13-2024 End: 05-13-2024 Telephone encounter Valeriano Beasley MD Work Phone: [facility] Comment on above: Patient Question Start: 05-01-2024 End: 05-01-2024 Telephone encounter Valeriano Beasley MD Work Phone: [facility] Comment on above: Release Of Medical R ecords Start: 05-01-2024 End: 05-01-2024 ambulatory VALERIANO BEASLEY Facility:[facility] Start: 05-01-2024 End: 05-01-2024 Patient encounter procedure Suzanna Dawson PA-C Work Phone: [facility] Comment on above: Medicare annual well ness visit, subsequent (Primary Dx); Encounter for immunization; Essential hypertension, benign; Advance directive discussed with patient; Living will in place; Tinter Photograph's nodules; Valvular heart disease; Coronary artery disease due to lipid rich plaque; Heart murmur, systolic; Mixed hyperlipidemia; Low vitamin D level; Low serum vitamin B12; Gout without tophus; Overweight with body mass index (BMI) of 29 to 29.9 in adult; Elevated LFTs; Alcohol abuse; Elevated PSA Start: 04-17-2024 End: 04-17-2024 Chart abstracting Ganesh White MA [facility] [place] Comment on above: Consult (Outside Car diology /) Start: 04-15-2024 End: 04-15-2024 ambulatory Valeriano Beasley Facility:[facility] Start: 04-04-2024 End: 04-04-2024 ambulatory [facility] Facility:[facility] Start: 04-04-2024 End: 04-04-2024 Patient encounter procedure Ni Sauceda APRN.LIGHT RAIL SIG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 Work Phone: [facility] [place] Comment on above: Essential hypertensi on, benign (Primary Dx) Start: 04-01-2024 End: 04-01-2024 Chart abstracting Ganesh White MA [facility] [place] Comment on above: ER F/U Start: 04-01-2024 End: 04-01-2024 Telephone encounter Ganesh White MA [facility] [place] Comment on above: Appointment Start: 03-29-2024 End: 03-29-2024 Emergency department patient visit Valeriano [facility] Facility:[facility] Start: 03-29-2024 End: 03-29-2024 [facility] Facility:[facility] Start: 03-29-2024 End: 03-29-2024 Patient encounter procedure 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 Work Phone: [facility] Comment on above: Tongue swelling (Linda marilyn Dx) Start: 03-12-2024 ambulatory Valeriano Gale Facility :[facility] Start: 02-08-2024 End: 02-08-2024 Subsequent hospital visit by physician Analilia [facility] (I-Stat) Work Phone: Cat Scan Comment on above: Occlusion and stenos is of unspecified carotid artery [I65.29] Start: 02-08-2024 End: 02-08-2024 ambulatory PATRIA KHANNA JR Facility:[facility] Start: 02-06-2024 Telephone encounter Patria Khanna MD Work Phone: Neurology Comment on above: Results Start: 02-06-2024 End: 02-06-2024 ambulatory PATRIA KHANNA JR Facility:[facility] Start: 02-06-2024 End: 02-06-2024 Subsequent hospital visit by physician [employer] [facility] (I-Stat/1.5t) Work Phone: Radiology Comment on [...] encounter Valeriano Beasley MD Work Phone: [facility] [place] Comment on above: Patient Question Start: 12-19-2023 Chart abstracting Valeriano lua MD Work Phone: [facility] [place] Comment on above: Ext / Nuclear Stress Test Start: 10-17-2023 Telephone encounter Valeriano Beasley MD Work Phone: [facility] [place] Comment on above: Orders (labs) Start: 10-14-2023 ambulatory Genny Tsai MA [facility] Start: 10-14-2023 Patient encounter procedure [facility] [place] Comment on above: Population Health Na vigation Outreach ([facility] Annual Wellness Visit ) Start: 10-03-2023 Telephone encounter Valeriano Beasley MD Work Phone: [facility] [place] Comment on above: Orders Start: 09-29-2023 Chart abstracting Valeriano lua MD Work Phone: [facility] [place] Comment on above: Outside Echo ([place]) Start: 09-28-2023 Non-patient / Non-visit Dr. William Beasley Work Phone: [facility] Work Phone: Start: 09-28-2023 Non-patient / Non-visit Dr. [facility] Start: 09-28-2023 End: 09-28-[address] Valeriano Beasley Work Phone: [facility] Work Phone: Start: 09-28-2023 End: 09-28-[address] [facility] Work Phone: Start: 09-25-2023 Refill Valeriano solano MD Work Phone: [facility] Comment on above: Refill Request Start: 09-07-2023 Chart abstracting Valeriano lua MD Work Phone: [facility] Comment on above: [facility] (labs) Start: 09-06-2023 Chart abstracting Valeriano lua MD Work Phone: [facility] Comment on above: Outside Cardiology ( labs) Start: 09-05-2023 End: 09-05-[address] Valeriano Beasley Work Phone: [facility] Work Phone: Start: 09-05-2023 End: 09-05-[address] Valeriano Beasley Work Phone: [facility] Work Phone: Start: 09-04-2023 Chart abstracting Valeriano lua MD Work Phone: [facility] Comment on above: outside imaging Start: 09-01-2023 Chart abstracting Valeriano lua MD Work Phone: [facility] Comment on above: Outside Orthopedics Start: 09-01-2023 Telephone encounter Valeriano Beasley MD Work Phone: Radiology Start: 09-01-2023 End: 09-01-[address] 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 William Beasley Work Phone: [facility] Start: 05-25-2023 End: 05-25-[address] Valeriano Beasley Work Phone: [facility] Work Phone: Start: 05-25-2023 End: 05-25-[address] Valeriano Beasley Work Phone: [facility]-Pulmonary Services/Neurology Work Phone: Start: 05-18-2023 End: 05-18-2023 Patient encounter procedure Valeriano Beasley MD Work Phone: [facility] [place] Comment on above: Essential hypertensi on, benign (Primary Dx); Low serum vitamin B12; Anxiety Start: 04-20-2023 End: 04-20-2023 Patient encounter procedure Valeriano Beasley MD Work Phone: [facility] Comment on above: Medicare annual [facility] visit, subsequent (Primary Dx); Essential hypertension, [...] Chart abstracting Valeriano lua MD Work Phone: [facility] Comment on above: Outside GI Start: 12-20-2022 ambulatory Valeriano solano MD Work Phone: [facility] Start: 12-09-2022 End: 12-09-[address] Valeriano Beasley Work Phone: [facility] Work Phone: Start: 12-09-2022 End: 12-09-[address] Valeriano Beasley Work Phone: [facility] Start: 11-10-2022 Refill Valeriano solano MD Work Phone: [facility] Comment on above: Refill Request Refill Request (This is a short term to local pharmacy and a copy of the 90 sent to mail order.) Start: 10-20-2022 Chart abstracting Valeriano lua MD Work Phone: [facility] Comment on above: Consult (GI ) Start: 2022 End: [address] Valeriano Beasley Work Phone: [facility] Start: 10-13-2022 Telephone encounter Suzanna park PA-C Work Phone: [facility] Comment on above: Results Start: 10-12-2022 End: 10-12-2022 Patient encounter procedure Suzanna Dawson PA-C Work Phone: [facility] Comment on above: Essential hypertensi on, benign (Primary Dx); Mixed hyperlipidemia; NSTEMI (non-ST elevated myocardial infarction) (HCC); Coronary artery disease due to lipid rich plaque; AVM (arteriovenous malformation) of colon; Situational depression; Alcohol abuse; Anxiety; Elevated PSA; Lower GI bleed; Anemia, unspecified type; Prostate disorder; Low vitamin D level; Gout without tophus Start: 09-21-2022 Non-patient / Non-visit Dr. William Beasley Work Phone: [facility] Start: 09-15-2022 Telephone encounter Valeriano Beasley MD Work Phone: [facility] Comment on above: Results Start: 09-14-2022 End: 09-14-2022 Patient encounter procedure Valeriano Beasley MD Work Phone: [facility] Comment on above: Lower GI bleed (Prim [place] Dx); Situational depression; AVM (arteriovenous malformation) of colon; Alcohol abuse; H/O non-ST elevation myocardial infarction (NSTEMI); Mixed hyperlipidemia Start: 09-10-2022 ambulatory Valeriano solano MD Work Phone: [facility] Start: 09-10-2022 Follow-up encounter Valeriano Beasley MD Work Phone: [facility] Comment on above: [facility] Start: 09-10-2022 Non-patient / Non-visit Dr. William Beasley Work Phone: [facility] Start: 09-10-2022 Non-patient / Non-visit Dr. William Beasley Work Phone: [facility] Start: 09-09-2022 Non-patient / Non-visit Dr. William Beasley Work Phone: [facility] Start: 09-08-2022 Non-patient / Non-visit Dr. William Beasley Work Phone: [facility] Start: 09-08-2022 Non-patient / Non-visit Dr. William Beasley Work Phone: [facility] Start: 09-07-2022 Non-patient / Non-visit Dr. William Beasley Work Phone: [facility] Start: 09-07-2022 Non-patient / Non-visit Dr. William Beasley Work Phone: [facility] Start: 09-06-2022 Non-patient / Non-visit Dr. William Beasley Work Phone: [facility] Start: 09-06-2022 Non-patient / Non-visit Dr. William Beasley Work Phone: [facility] Start: 09-06-2022 Non-patient / Non-visit Dr. William Beasley Work Phone: [facility] Start: 09-05-2022 Non-patient / Non-visit Dr. William Beasley Work Phone: [facility] Start: 09-05-2022 Non-patient / Non-visit Dr. William Beasley Work Phone: [facility] Start: 09-05-2022 Chart abstracting Valeriano lua MD Work Phone: [facility] [place] Comment on above: Consult (Consult [facility] ) Results (EGD results - [facility] ) Start: 09-05-2022 Non-patient / Non-visit Dr. William Beasley Work Phone: [facility] Start: 09-04-2022 Non-patient / Non-visit Dr. Wliliam Beasley Work Phone: [facility] Start: 09-04-2022 Non-patient / Non-visit Dr. William Beasley Work Phone: [facility] Start: 09-04-2022 Non-patient / Non-visit Dr. William Beasley Work Phone: [facility] Start: 09-03-2022 Non-patient / Non-visit Dr. William Beasley Work Phone: [facility] Start: 09-02-2022 End: 09-02-2022 Non-patient / Non-visit Dr. Valeriano Beasley Work Phone: [facility] Start: 09-02-2022 Non-patient / Non-visit Dr. William Beasley Work Phone: [facility] Start: 09-02-2022 End: 09-10-2022 Evaluation and management of inpatient Dr. Valeriano Beasley Work Phone: [facility]-Progressive Care Unit Start: 06-27-2022 End: 07-23-2022 ambulatory [facility] Work Phone: Start: 06-27-2022 End: 07-23-2022 Discharged Recurring [facility]-Cardiac Rehab Start: 06-22-2022 End: 06-22-2022 Discharged Recurring [facility] Start: 05-23-2022 End: 05-23-2022 ambulatory [facility] Work Phone: Start: 05-23-2022 End: 05-23-2022 Discharged Recurring [facility] Start: 04-22-2022 End: 04-22-2022 ambulatory [facility] Work Phone: Start: 04-22-2022 End: 04-22-2022 Discharged Recurring [facility]Card[facility] Start: 04-18-2022 End: 04-18-2022 Patient encounter procedure Valeriano Beasley MD Work Phone: [facility] [place] Comment on above: Medicare annual well ness visit, subsequent (Primary Dx); Essential hypertension, benign; Mixed hyperlipidemia; Coronary artery disease due to lipid rich plaque; Anxiety; Low vitamin D level; Gout without tophus; Elevated PSA; Living will in place; Advance directive discussed with patient Start: 04-12-2022 Telephone encounter Valeriano Beasley MD Work Phone: [facility] [place] Comment on above: Orders Start: 03-30-2022 Registered Recurring [facility] Start: 03-25-2022 End: 03-25-2022 ambulatory [facility] Work Phone: Start: 03-25-2022 End: 03-25-2022 Patient encounter procedure [facility] Start: 01-29-2022 ambulatory TESSA GUZMAN MD Facili ty:A Start: 01-27-2022 End: 01-27-[address] FRANKLIN NASH MD Facility:A Start: 01-27-2022 End: 01-27-[address] FRANKLIN NASH MD [facility] Start: 01-18-2022 ambulatory TESSA GUZMAN MD Facili ty:A Start: 01-01-2022 Orders Only Tessa Donato DO Work Phone: [facility] Comment on above: Myocardial infarctio n involving left anterior descending (LAD) coronary artery, unspecified [place] type (HCC) (Primary Dx) Start: 12-31-2021 Telephone encounter Celestine anthony MD Work Phone: Cardiothoracic Comment on above: Insurance Authorizat ion Start: 12-06-2021 Patient encounter procedure Celestine Talavera MD Work Phone: [facility] Work Phone: Start: 12-02-2021 Telephone encounter Ganesh White MA [facility] [place] Comment on above: Appointment Start: 11-29-2021 End: 12-01-2021 Evaluation and management of inpatient CHRISTINE EDWARDS MD [facility] Start: 11-29-2021 End: 11-29-2021 Emergency department patient visit DONAVON NUNEZ DO [facility] Start: 03-15-2021 Patient encounter procedure Ganesh White MA [facility] Work Phone: Procedures Date Procedure [...] Work Phone: Start: 12-28-[address] Valerinao Beasley MD Work Phone: Start: 12-28-2024 Gram [...] real time screen study aaa Ni Sauceda APRN.LIGHT RAIL SIG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 Work Phone: Start: 10-30-2024 Lipid 1996 panel - Serum or Plasma Ni Sauceda APRN.LIGHT RAIL SIG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 Work Phone: Start: 10-11-2024 Cholesterol serum/whole blood total Dr. Valeriano Beasley MD Work Phone: Comment on above: Test not performed Start: 10-11-2024 External camera medical photography Dr. Valeriano Beasley MD Work Phone: Comment on above: Photograph will follow under a separate cover Start: 09-23-2024 Plain X-ray abdomen Dr. Valeriano Beasley MD Work Phone: Start: 09-12-2024 Fxyqx-2-Ffabameburc measurement Dr. Jae Beasley MD Work Phone: Comment on above: sofatutor Electrochemiluminescen ce Immunoassay(ECLIA)Values obtained with different assay methods or kits cannotbe used interchangeably. Results cannot be interpreted asabsolute evidence of the presence or absence of malignantdisease.This test is not interpretable in females. Start: 09-12-[address] Valeriano Beasley MD Work Phone: Comment on above: Performed at: [facility] [place] [place] [id number] Director: José Miguel Alba PhD, Phone: [phone] Start: 09-12-2024 Antibody to centromere measurement Dr. [...] Phone: Comment on above: Performed at: - [facility] [id number] Director: José Miguel Alba PhD, Phone: [phone] at: - [facility] [id number] Director: Zafar Browne MD, Phone: [phone] Start: 09-12-2024 Measurement of renal function Dr. Dalila Beasley MD Work Phone: Comment on above: GFR Calc Start: 09-12-2024 PROPULSION ENGINEER antibody measurement Dr. Valeriano peña MD Work [...] LM, LAD and LCX. Discussed with in stores laborer - Will consult him for CABG in [...] DTaP,Tdap,Td Vaccine (3 - Td or Tdap) [facility] Start: 10-30-2029 Lipid panel Lipid Screening [facility] Start: 04-04-2029 Lipid panel Lipid Screening [facility] Start: 10-16-2028 Lipid panel Lipid Screening [facility] Start: 04-14-2028 Lipid 1996 panel - Serum or Plasma Lipid Screening [facility] Start: 04-14-2028 Lipid panel Lipid Screening [facility] Start: 10-31-2027 Diabetes Screening Diabetes Screening [facility] Start: 10-06-2027 LIPID SCREEN LIPID SCREEN [facility] Start: 09-26-2027 Diabetes Screening Diabetes Screening [facility] Start: 09-14-2027 LIPID SCREEN LIPID SCREEN [facility] Start: 04-13-2027 LIPID SCREEN LIPID SCREEN [facility] Start: 04-04-2027 Diabetes Screening Diabetes Screening [facility] Start: 10-16-2026 Diabetes Screening Diabetes Screening [facility] Start: 04-14-2026 Diabetes Screening Diabetes Screening [facility] Start: 03-24-2026 Colonoscopy COLONOSCOPY [facility] Start: 03-24-2026 COLORECTAL CANCER SCREENING COLORECTAL CANCER SCREENING [facility] Start: 03-15-2026 LIPID SCREEN LIPID SCREEN [facility] Start: 01-01-2026 Annual PCP Team Chronic Disease Visit Annual PCP Team Chronic Disease Visit [facility] Start: 11-01-2025 Annual PCP Team Chronic Disease Visit Annual PCP Team Chronic Disease Visit [facility] Start: 11-01-2025 BP Controlled (<130/80) BP Controlled (<130/80) [facility] in Start: 11-01-2025 Covid-19 Vaccine () Covid-19 Vaccine () [facility] Comment on above: Postponed from 10/30/2024 (Declined at t his time) Start: 11-01-2025 Hepatitis A Vaccine (1 of 2 - Risk 2-dose series) Hepatitis A Vaccine (1 of 2 - Risk 2-dose series) [facility] Comment on above: Postponed from 1969 (Declined at t his time) Start: 11-01-2025 Hepatitis B Vaccine (1 of 3 - Risk 3-dose series) Hepatitis B Vaccine (1 of 3 - Risk 3-dose series) [facility] Comment on above: Postponed from 2010 (Declined at t his time) Start: 11-01-2025 RSV Vaccine (1 - Risk 60-74 years 1-dose series) RSV Vaccine (1 - Risk 60-74 years 1-dose series) [facility] Comment on above: Postponed from 2010 (Declined at t his time) Start: 11-01-2025 Shingrix Vaccine (1 of 2) Shingrix Vaccine (1 of 2) [facility] Comment on above: Postponed from 2000 (Declined at t his time) Start: 11-01-2025 Urine microalbumin profile DTaP,Tdap,Td Vaccine (2 - Td or Tdap) [facility] Comment on above: Postponed from 03/04/2018 (Declined at t his time) Start: 10-30-2025 Hepatitis B surface antibody level LDL Cholesterol [facility] Start: 10-23-2025 BP Controlled (<130/80) BP Controlled (<130/80) [facility] Start: 2025 RSV Vaccine (1 - 1-dose 75+ series) RSV Vaccine (1 - 1-dose 75+ series) [facility] Start: 09-14-2025 DIABETES SCREEN DIABETES SCREEN [facility] Start: 09-05-2025 Colonoscopy COLONOSCOPY [facility] Start: 09-05-2025 COLORECTAL CANCER SCREENING COLORECTAL CANCER SCREENING [facility] Start: 09-05-2025 Screening for malignant neoplasm of colon [facility] Start: 08-19-2025 BP Controlled (<130/80) BP Controlled (<130/80) [facility] Start: 07-31-2025 Annual PCP Team Chronic Disease Visit Annual PCP Team Chronic Disease Visit [facility] Start: 07-31-2025 BP Controlled (<130/80) BP Controlled (<130/80) [facility] Start: 05-29-2025 Annual PCP Team Chronic Disease Visit Annual PCP Team Chronic Disease Visit [facility] Start: 05-29-2025 BP Controlled (<130/80) BP Controlled (<130/80) [facility] Start: 05-06-2025 End: 05-06-2025 Patient encounter procedure 05/06/2025 1:40 PM EDT Office Visit [facility] [place] [address] [place] [address] Valeriano Beasley MD [address] [place] [phone] medicare wellness [facility] [place] Comment on above: medicare wellness Start: 05-01-2025 Annual PCP Team Chronic Disease Visit Annual PCP Team Chronic Disease Visit [facility] Start: 05-01-2025 BP Controlled (<130/80) BP Controlled (<130/80) [facility] Start: 04-24-2025 End: 04-24-2025 ambulatory [place] [facility] Comment on above: CBC/CMP/Myeloma labs with urine* OV* Start: 04-16-2025 End: 04-16-2025 Patient encounter procedure 04/16/2025 11:30 AM EDT Office Visit Neurology [address] [place] [address] Tayler Ellis PA-C [address] [place] [address] 3 month follow up, Neuropathy - Gabapentin Neurology Comment on above: 3 month follow up, Neuropathy - Gabapent in Start: 04-13-2025 DIABETES SCREEN DIABETES SCREEN [facility] Start: 04-04-2025 Annual PCP Team Chronic Disease Visit Annual PCP Team Chronic Disease Visit [facility] Start: 04-04-2025 Hepatitis B surface antibody level LDL Cholesterol [facility] Start: 03-24-2025 Influenza vaccination Influenza Vaccine (#1) [facility] Start: 01-23-2025 Admission procedure [facility] Start: 01-23-2025 Verification routine [facility] Start: 01-23-2025 Hospital admission, emergency, from emergency room, medical nature [facility] Start: 12-30-2024 Patient discharge [facility] Start: 12-30-2024 Care planning and problem solving actions [facility] Start: 12-29-2024 Bacteria identified in Blood by Culture Blood Culture [facility] Start: 12-29-2024 [facility] Start: 12-29-2024 Following clinical pathway protocol [facility] Start: 12-29-2024 Oxygen therapy [facility] Start: 12-29-2024 [facility] Start: 12-28-2024 Microscopic observation [Identifier] in Unspecified specimen by Gram stain [facility] Start: 12-28-2024 Respiratory microbial culture Respiratory Culture [facility] Start: 12-27-2024 Following clinical pathway protocol [facility] Start: 12-27-2024 Assessment of risk of venous thromboembolism [facility] Start: 12-27-2024 Consultation [facility] Start: 12-27-2024 Continuous pulse oximetry [facility] Start: 12-27-2024 Elevation of head of bed [facility] Start: 12-27-2024 Insertion of catheter into peripheral vein [facility] Start: 12-27-2024 Measuring intake and output [facility] Start: 12-27-2024 Patient referral to dietitian [facility] Start: 12-27-2024 Providing care according to standard [facility] Start: 12-27-2024 Referral to service [facility] Start: 12-27-2024 Removal of urinary catheter [facility] Start: 12-27-2024 Vital signs measurements [facility] Start: 12-27-2024 [facility] Start: 12-27-2024 Hospital admission, emergency, from emergency room, medical nature [facility] Start: 12-27-2024 Verification routine [facility] Start: 12-27-2024 Airway suction technique [facility] Start: 12-27-2024 Microscopic observation [Identifier] in Unspecified specimen by Gram stain [facility] Start: 12-27-2024 Respiratory Culture Respiratory Culture [facility] Start: 12-27-2024 Admission procedure [facility] Start: 12-27-2024 Creatine kinase [Enzymatic activity/volume] in Serum or Plasma [facility] Start: 12-27-2024 Triglycerides measurement [facility] Start: 12-27-2024 End: 12-28-2024 [facility] Start: 12-27-2024 [facility] Start: 12-23-2024 End: 03-24-2025 Cobalamin (Vitamin B12) [Mass/volume] in Serum or Plasma [facility] Work Phone: Comment on above: Expected: 12/23/2024, Expires: Start: 12-23-2024 End: 12-23-2024 Patient encounter procedure 12/23/2024 2:00 PM EDT Office Visit Neurology [address] [place] [id number] Patria Khanna Jr., MD [address] [place] [address] 8 WEEK FOLLOW UP Neurology Comment on above: 8 WEEK FOLLOW UP Start: 11-06-2024 End: 11-06-2024 Patient encounter procedure 11/06/2024 11:30 AM EDT Appointment Radiology [address] [place] [address] Dx: Screening for abdominal aortic aneurysm [Z13.6] Radiology Comment on above: Dx: Screening for abdominal aortic aneur ysm [Z13.6] Start: 11-01-2024 End: 11-01-2024 Patient encounter procedure 11/01/2024 11:00 AM EDT Office Visit [facility] [address] [facility] [place] [id number] Ni Sauceda APRN.LIGHT RAIL SIG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 [address] [facility] [place] [id number] 6 month routine follow up [facility] Comment on above: 6 month routine follow up Start: 10-30-2024 End: 01-29-2025 25-hydroxyvitamin D3 [Mass/volume] in Serum or Plasma VITAMIN D 25 HYDROXY Lab Routine Low vitamin D level Expected: 10/30/2024, Expires: 01/29/2025 [facility] Comment on above: Expected: 10/30/2024, Expires: Start: 10-30-2024 End: 01-29-2025 CBC W Auto Differential panel - Blood COMPLETE BLOOD COUNT AND DIFFERENTIAL Lab Routine Essential hypertension, benign Expected: 10/30/2024, Expires: 01/29/2025 [facility] Comment on above: Expected: 10/30/2024, Expires: Start: 10-30-2024 End: 01-29-2025 Cobalamin (Vitamin B12) [Mass/volume] in Serum or Plasma VITAMIN B12 Lab Routine Low serum vitamin B12 Expected: 10/30/2024, Expires: 01/29/2025 [facility] Comment on above: Expected: 10/30/2024, Expires: Start: 10-30-2024 End: 01-29-2025 Comprehensive metabolic 2000 panel - Serum or Plasma COMPREHENSIVE METABOLIC PANEL Lab Routine Essential hypertension, benign Expected: 10/30/2024, Expires: 01/29/2025 [facility] Comment on above: Expected: 10/30/2024, Expires: Start: 10-30-2024 Covid-19 Vaccine () Covid-19 Vaccine () [facility] Start: 10-30-2024 End: 01-29-2025 LIPID PANEL, NONFASTING LIPID PANEL, NONFASTING Lab Routine Mixed hyperlipidemia Expected: 10/30/2024, Expires: 01/29/2025 [facility] Comment on above: Expected: 10/30/2024, Expires: Start: 10-30-2024 End: 01-29-2025 Prostate Specific Ag Free [Mass/volume] in Serum or Plasma PROSTATE SPECIFIC ANTIGEN, FREE Lab Routine Elevated PSA Expected: 10/30/2024, Expires: 01/29/2025 [facility] Comment on above: Expected: 10/30/2024, Expires: Start: 10-30-2024 End: 01-29-2025 Urate [Mass/volume] in Serum or Plasma URIC ACID Lab Routine Gout without tophus Expected: 10/30/2024, Expires: 01/29/2025 [facility] Work Phone: Comment on above: Expected: 10/30/2024, Expires: Start: 10-30-2024 End: 01-29-2025 Urinalysis complete panel - Urine URINALYSIS, WITH MICROSCOPIC Lab Routine Essential hypertension, benign Expected: 10/30/2024, Expires: 01/29/2025 [facility] Comment on above: Expected: 10/30/2024, Expires: Start: 10-30-2024 End: 10-30-2024 ambulatory 10/30/2024 11:00 AM EDT Results Only [facility] [address] [place] [id number] Lab [facility] Comment on above: Lab Start: 10-23-2024 End: 10-23-2024 ambulatory 10/23/2024 11:10 AM EDT Visit (SP) Office Hematology/Oncology [address] [place] [address] Stephanie Roy DO [address] [place] [id number] OV/LAB&24 HR URINE 10/21* Hematology/Oncology Comment on above: OV/LAB&24 HR URINE 10/21* Start: 10-21-2024 End: 10-21-2024 ambulatory 10/21/2024 11:00 AM EDT Results Only [place] [facility] [address] [place] [id number] LAB/24 HR URINE [facility] Comment on above: LAB/24 HR URINE Start: 10-18-2024 Annual PCP Team Chronic Disease Visit Annual PCP Team Chronic Disease Visit [facility] Start: 10-16-2024 Hepatitis B surface antibody level LDL Cholesterol [facility] Start: 10-03-2024 End: 10-03-2024 Patient encounter procedure 10/03/2024 11:00 AM EDT Office Visit [facility] [place] [address] [facility] [place] [id number] Ni Sauceda APRN.LIGHT RAIL SIG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 [address] [facility] [place] [id number] 6 month routine follow up [facility] [place] Comment on above: 6 month routine follow up Start: 09-27-2024 End: 12-27-2024 Calcium.ionized [Moles/volume] in Blood CALCIUM, IONIZED Lab Routine Hypercalcemia Expected: 09/27/2024, Expires: 12/27/2024 [facility] Work Phone: Comment on above: Expected: 09/27/2024, Expires: Start: 09-25-2024 End: 12-25-2024 Cobalamin (Vitamin B12) [Mass/volume] in Serum or Plasma [facility] Comment on above: Expected: 09/25/2024, Expires: Start: 09-25-2024 End: 12-25-2024 COPPER BLOOD [facility] Comment on above: Expected: 09/25/2024, Expires: Start: 09-25-2024 End: 12-25-2024 Folate [Mass/volume] in Serum or Plasma [facility] Comment on above: Expected: 09/25/2024, Expires: Start: 09-25-2024 End: 09-25-2024 FQHC visit new patient 09/25/2024 2:00 PM EST Visit (SP) Office Hematology/Oncology [address] [place], [place] [id number] Stephanie Roy DO [address] [place] [id number] NEW PATIENT Hematology/Oncology Comment on above: NEW PATIENT Start: 09-25-2024 End: 12-25-2024 Methylmalonate [Moles/volume] in Serum or Plasma [facility] Comment on above: Expected: 09/25/2024, Expires: Start: 09-25-2024 End: 12-25-2024 [facility] Comment on above: Expected: 09/25/2024, Expires: Start: 09-25-2024 End: 12-25-2024 MONOCLONAL PROTEIN, SERUM (BLOOD) [facility] Comment on above: Expected: 09/25/2024, Expires: Start: 09-25-2024 End: 12-25-2024 PROTEIN ELECT RND UR W/[facility] Comment on above: Expected: 09/25/2024, Expires: Start: 09-25-2024 End: 12-25-2024 PROTEIN ELECTROPHORESIS SERUM W/[facility] Work Phone: Comment on above: Expected: 09/25/2024, Expires: Start: 09-03-2024 End: 09-03-2024 ambulatory 09/03/2024 3:10 PM EST [facility] Rheumatology [address] [facility] [place] [address] Nyla De Jesus DO [address] [place] [address] Positive GALLO (antinuclear antibody) [R76.8] Rheumatology Comment on above: Positive GALLO (antinuclear antibody) [R76 .8] Start: 09-03-2024 End: 12-03-2024 C reactive protein [Mass/volume] in Serum or Plasma C-REACTIVE PROTEIN Lab Routine Positive GALLO (antinuclear antibody) Expected: 09/03/2024, Expires: 12/03/2024 [facility] Comment on above: Expected: 09/03/2024, Expires: Start: 09-03-2024 End: 12-03-2024 CBC W Auto Differential panel - Blood COMPLETE BLOOD COUNT AND DIFFERENTIAL Lab Routine Positive GALLO (antinuclear antibody) Expected: 09/03/2024, Expires: 12/03/2024 [facility] Comment on above: Expected: 09/03/2024, Expires: Start: 09-03-2024 End: 12-03-2024 Complement C3 [Mass/volume] in Serum or Plasma C3 COMPLEMENT Lab Routine Positive GALLO (antinuclear antibody) Expected: 09/03/2024, Expires: 12/03/2024 [facility] Work Phone: Comment on above: Expected: 09/03/2024, Expires: Start: 09-03-2024 End: 12-03-2024 Complement C4 [Mass/volume] in Serum or Plasma C4 COMPLEMENT Lab Routine Positive GALLO (antinuclear antibody) Expected: 09/03/2024, Expires: 12/03/2024 [facility] Comment on above: Expected: 09/03/2024, Expires: Start: 09-03-2024 End: 12-03-2024 Comprehensive metabolic 2000 panel - Serum or Plasma COMPREHENSIVE METABOLIC PANEL Lab Routine Positive GALLO (antinuclear antibody) Expected: 09/03/2024, Expires: 12/03/2024 [facility] Comment on above: Expected: 09/03/2024, Expires: Start: 09-03-2024 End: 12-03-2024 DNA ANTIBODY DS BLD DNA ANTIBODY DS BLD Lab Routine Positive GALLO (antinuclear antibody) Expected: 09/03/2024, Expires: 12/03/2024 [facility] Comment on above: Expected: 09/03/2024, Expires: Start: 09-03-2024 End: 12-03-2024 Erythrocyte sedimentation rate SEDIMENTATION RATE, WESTERGREN Lab Routine Positive GALLO (antinuclear antibody) Expected: 09/03/2024, Expires: 12/03/2024 [facility] Comment on above: Expected: 09/03/2024, Expires: Start: 08-30-2024 End: 08-30-2024 Patient encounter procedure Neurology Comment on above: f/u balance, abnormal ga it, numbness, neuropathy, hx of CAD, Hx of stent- RACHAEL 12/31 WJN, labs ordered, MRI, MRA x2 Start: 08-30-2024 End: 11-29-2024 KAPPA/NEUMANN,FREE,SER [facility] Comment on above: Expected: 08/30/2024, Expires: Start: 08-30-2024 End: 11-29-2024 PROTEIN ELECTROPHORESIS SERUM W/INTERP [facility] Work Phone: Comment on above: Expected: 08/30/2024, Expires: Start: 08-19-2024 End: 08-19-2024 Patient encounter procedure 08/19/2024 1:30 PM EST Office Visit Allergy [address] [address] Arun Christian, [address] [place] [address] Angioedema, subsequent encounter [T78.3XXD] Allergy Comment on above: Angioedema, subsequent encounter [T78.3X XD] Start: 07-24-2024 Advance Directive Discussion Advance Directive Discussion [facility] Start: 07-24-2024 Medicare Advantage Annual Wellness Visit Medicare Advantage Annual Wellness Visit [facility] Start: 07-18-2024 [facility] Start: 07-12-2024 End: 07-12-2024 Patient encounter procedure 07/12/2024 4:40 PM EST Office Visit Neurology [address] [place] [address] Patria Khanna Jr., MD [address] [phone] follow up Neurology Comment on above: follow up Start: 07-10-2024 Annual PCP Team Chronic Disease Visit Annual PCP Team Chronic Disease Visit [facility] Start: 05-29-2024 End: 05-29-2024 Patient encounter procedure 05/29/2024 1:00 PM EST Office Visit [facility] [place] [address] [place] [address] Suzanna Dawson PA-C [address] [place] [address] bp recheck [facility] [place] Comment on above: bp recheck Start: 05-18-2024 Annual PCP Team Chronic Disease Visit Annual PCP Team Chronic Disease Visit [facility] Start: 05-01-2024 End: 05-01-2024 Patient encounter procedure 05/01/2024 1:00 PM EDT Office Visit [facility] [place] [address] [place] [address] Suzanna Dawson PA-C [address] [place] [address] Medicare Wellness (rescheduled from 04/24 with PCP) [facility] [place] Comment on above: Medicare Wellness (rescheduled from 04/24 with PCP) Start: 04-24-2024 End: 04-24-2024 Patient encounter procedure 04/24/2024 1:00 PM EDT Office Visit [facility] [place] [address] [place] [address] Valeriano Beasley MD [address] [place] [address] Medicare Wellness [facility] [place] Comment on above: Medicare Wellness Start: 04-20-2024 Annual PCP Team Chronic Disease Visit Annual PCP Team Chronic Disease Visit [facility] Start: 04-20-2024 Covid-19 Vaccine () Covid-19 Vaccine () [facility] Comment on above: Postponed from 03/24/2023 (Not Currently Available) Start: 04-20-2024 Covid-19 Vaccine (3 - Booster for Soy series) Covid-19 Vaccine (3 - Booster for Soy series) [facility] Comment on above: Postponed from 07/22/2021 (Not Currently Available) Start: 04-20-2024 Shingrix Vaccine (1 of 2) Shingrix Vaccine (1 of 2) [facility] Comment on above: Postponed from 2000 (Insurance Cov erage) Start: 04-20-2024 Urine microalbumin profile DTaP,Tdap,Td Vaccine (2 - Td or Tdap) [facility] Comment on above: Postponed from 03/04/2018 (Insurance Cov erage) Start: 04-14-2024 Hepatitis B surface antibody level LDL Cholesterol [facility] Start: 04-04-2024 End: 04-04-2024 Patient encounter procedure 04/04/2024 11:40 AM EDT Office Visit [facility] [address] [place] [address] Ni Sauceda APRN.LIGHT RAIL SIG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 [address] [place] [address] ER Follow UP [facility] Monday03/29/2024 Tongue Swelling [facility] Comment on above: ER Follow UP [facility] Monday03/29/2024 Tongue Swelling Start: 03-24-2024 Covid-19 Vaccine ( season) Covid-19 Vaccine ( season) [facility] Start: 03-24-2024 Covid-19 Vaccine ( season) Covid-19 Vaccine ( season) [facility] Start: 03-24-2024 [facility] Start: 03-15-2024 DIABETES SCREEN DIABETES SCREEN [facility] Start: 02-07-2024 End: 05-08-2024 CREATININE BLD CREATININE BLD Lab Routine Nephropathy screen Expected: 02/07/2024, Expires: 05/08/2024 [facility] Comment on above: Expected: 02/07/2024, Expires: Start: 02-06-2024 End: 02-06-2024 Patient encounter procedure Radiology Comment on above: Other symptoms and signs involving the n ervous system [R29.818] Start: 01-01-2024 End: 01-01-2024 Patient encounter procedure 01/01/2024 3:40 PM EDT Office Visit Neurology [address] [facility] [place] [address] Patria Khanna Jr., MD [address] [facility] [address] [place] [id number] Balance problems [R26.89] Neurology Comment on above: Balance problems [R26.89] Start: 01-01-2024 End: 04-01-2024 GALLO BY IFA WITH REFLEX GALLO BY IFA WITH REFLEX Lab Routine Balance problems Neuropathy Abnormality of gait Expected: 01/01/2024, Expires: 04/01/2024 [facility] Comment on above: Expected: 01/01/2024, Expires: Start: 01-01-2024 End: 04-01-2024 Erythrocyte sedimentation rate SEDIMENTATION RATE, WESTERGREN Lab Routine Balance problems Neuropathy Abnormality of gait Expected: 01/01/2024, Expires: 04/01/2024 [facility] Comment on above: Expected: 01/01/2024, Expires: Start: 01-01-2024 End: 04-01-2024 HEAVY METALS SCRN BL HEAVY METALS SCRN BL Lab Routine Balance problems Neuropathy Abnormality of gait Expected: 01/01/2024, Expires: 04/01/2024 [facility] Work Phone: Comment on above: Expected: 01/01/2024, Expires: 4 Start: 01-01-2024 End: 04-01-2024 Methylmalonate [Moles/volume] in Serum or Plasma METHYLMALONIC ACID Lab Routine Balance problems Neuropathy Abnormality of gait Expected: 01/01/2024, Expires: 04/01/2024 [facility] Comment on above: Expected: 01/01/2024, Expires: Start: 01-01-2024 End: 04-01-2024 PROTEIN ELECTROPHORESIS SERUM W/INTERP PROTEIN ELECTROPHORESIS SERUM W/INTERP Lab Routine Balance problems Neuropathy Abnormality of gait Expected: 01/01/2024, Expires: 04/01/2024 [facility] Comment on above: Expected: 01/01/2024, Expires: Start: 01-01-2024 End: 04-01-2024 Pyridoxine [Mass/volume] in Serum or Plasma VITAMIN B6/PYRIDOXIN Lab Routine Balance problems Neuropathy Abnormality of gait Expected: 01/01/2024, Expires: 04/01/2024 [facility] Comment on above: Expected: 01/01/2024, Expires: Start: 10-17-2023 End: 01-16-2024 Cobalamin (Vitamin B12) [Mass/volume] in Serum or Plasma [facility] Work Phone: Comment on above: Expected: 10/17/2023, Expires: Start: 10-17-2023 End: 01-16-2024 Comprehensive metabolic 2000 panel - Serum or Plasma [facility] Work Phone: Comment on above: Expected: 10/17/2023, Expires: Start: 10-17-2023 End: 01-16-2024 LIPID PANEL, NONFASTING [facility] Work Phone: Comment on above: Expected: 10/17/2023, Expires: Start: 10-17-2023 End: 01-16-2024 Prostate Specific Ag Free [Mass/volume] in Serum or Plasma [facility] Work Phone: Comment on above: Expected: 10/17/2023, Expires: Start: 10-17-2023 End: 01-16-2024 Urate [Mass/volume] in Serum or Plasma [facility] Work Phone: Comment on above: Expected: 10/17/2023, Expires: Start: 10-13-2023 ANNUAL PCP TEAM CHRONIC DISEASE VISIT ANNUAL PCP TEAM CHRONIC DISEASE VISIT [facility] Start: 10-06-2023 Hepatitis B surface antibody level LDL CHOLESTEROL [facility] Start: 09-14-2023 ANNUAL PCP TEAM CHRONIC DISEASE VISIT ANNUAL PCP TEAM CHRONIC DISEASE VISIT [facility] Start: 09-14-2023 BP CONTROLLED (<130/80) BP CONTROLLED (<130/80) [facility] Start: 09-14-2023 Hepatitis B surface antibody level LDL CHOLESTEROL [facility] Start: 08-21-2023 End: 11-20-2023 CREATININE BLD CREATININE BLD Lab Routine Essential hypertension, benign Kidney lesion Expected: 08/21/2023, Expires: 11/20/2023 [facility] Work Phone: Comment on above: Expected: 08/21/2023, Expires: 4 Start: 07-24-2023 Advance Directive Discussion Advance Directive Discussion [facility] Start: 04-18-2023 ANNUAL PCP TEAM CHRONIC DISEASE VISIT ANNUAL PCP TEAM CHRONIC DISEASE VISIT [facility] Start: 04-18-2023 SHINGRIX VACCINE (1 of 2) SHINGRIX VACCINE (1 of 2) [facility] Comment on above: Postponed from 2000 (Insurance Cov erage) Start: 04-18-2023 Urine microalbumin profile DTAP,TDAP,TD (2 - Td or Tdap) [facility] Comment on above: Postponed from 03/04/2018 (Insurance Cov erage) Start: 04-14-2023 End: 06-14-2023 25-hydroxyvitamin D3 [Mass/volume] in Serum or Plasma VITAMIN D 25 HYDROXY Lab Routine Low vitamin D level Expected: 04/14/2023, Expires: 06/14/2023 [facility] Work Phone: Comment on above: Expected: 04/14/2023, Expires: 3 Start: 04-14-2023 End: 06-14-2023 CBC W Auto Differential panel - Blood CBC + DIFF Lab Routine Essential hypertension, benign NSTEMI (non-ST elevated myocardial infarction) (HCC) Coronary artery disease due to lipid rich plaque Expected: 04/14/2023, Expires: 06/14/2023 [facility] Work Phone: Comment on above: Expected: 04/14/2023, Expires: 3 Start: 04-14-2023 End: 06-14-2023 Comprehensive metabolic 2000 panel - Serum or Plasma COMP METABOLIC PANEL Lab Routine Essential hypertension, benign Expected: 04/14/2023, Expires: 06/14/2023 [facility] Work Phone: Comment on above: Expected: 04/14/2023, Expires: 3 Start: 04-14-2023 End: 06-14-2023 LIPID PANEL, NONFASTING LIPID PANEL, NONFASTING Lab Routine Mixed hyperlipidemia Expected: 04/14/2023, Expires: 06/14/2023 [facility] Work Phone: Comment on above: Expected: 04/14/2023, Expires: 3 Start: 04-14-2023 End: 06-14-2023 Prostate Specific Ag Free [Mass/volume] in Serum or Plasma PSA FREE Lab Routine Elevated PSA Expected: 04/14/2023, Expires: 06/14/2023 [facility] Work Phone: Comment on above: Expected: 04/14/2023, Expires: 3 Start: 04-14-2023 End: 06-14-2023 Urate [Mass/volume] in Serum or Plasma URIC ACID BLOOD Lab Routine Gout without tophus Expected: 04/14/2023, Expires: 06/14/2023 [facility] Work Phone: Comment on above: Expected: 04/14/2023, Expires: 3 Start: 04-14-2023 End: 06-14-2023 Urinalysis complete panel - Urine URINALYSIS, WITH MICROSCOPIC Lab Routine Essential hypertension, benign Expected: 04/14/2023, Expires: 06/14/2023 [facility] Work Phone: Comment on above: Expected: 04/14/2023, Expires: 3 Start: 04-13-2023 Hepatitis B surface antibody level LDL CHOLESTEROL [facility] Start: 03-24-2023 Influenza vaccination INFLUENZA (Season Ended) [facility] Start: 12-06-2022 ANNUAL PCP TEAM CHRONIC DISEASE VISIT ANNUAL PCP TEAM CHRONIC DISEASE VISIT [facility] Start: 10-12-2022 End: 12-12-2022 CBC W Auto Differential panel - Blood [facility] Work Phone: Comment on above: Expected: 10/12/2022, Expires: 3 Start: 10-12-2022 End: 12-12-2022 Iron and Iron binding capacity panel - Serum or Plasma [facility] Work Phone: Comment on above: Expected: 10/12/2022, Expires: 3 Start: 10-07-2022 End: 12-07-2022 Hepatic function 2000 panel - Serum or Plasma HEPATIC FUNCTION PNL Lab Routine Essential hypertension, benign Mixed hyperlipidemia Expected: 10/07/2022, Expires: 12/07/2022 [facility] Work Phone: Comment on above: Expected: 10/07/2022, Expires: 3 Start: 10-07-2022 End: 12-07-2022 LIPID PANEL, NONFASTING LIPID PANEL, NONFASTING Lab Routine Essential hypertension, benign Mixed hyperlipidemia Coronary artery disease due to lipid rich plaque Expected: 10/07/2022, Expires: 12/07/2022 [facility] Work Phone: Comment on above: Expected: 10/07/2022, Expires: 3 Start: 10-07-2022 End: 12-07-2022 Prostate Specific Ag Free [Mass/volume] in Serum or Plasma PSA FREE Lab Routine Elevated PSA Expected: 10/07/2022, Expires: 12/07/2022 [facility] Work Phone: Comment on above: Expected: 10/07/2022, Expires: 3 Start: 09-10-2022 Patient discharge [facility] Start: 09-10-2022 Patient discharge [facility] Start: 09-07-2022 Referral to occupational therapist [facility] Start: 09-07-2022 Referral to service [facility] Start: 09-06-2022 Patient referral [facility] Work Phone: Start: 09-06-2022 Notification of physician [facility] Start: 09-06-2022 Patient education [facility] Start: 09-06-2022 Provision of activity privileges [facility] Start: 09-06-2022 Pulse taking [facility] Start: 09-06-2022 Taking patient vital signs [facility] Start: 09-06-2022 Wound care [facility] Start: 09-06-2022 [facility] Start: 09-04-2022 End: 09-05-2022 [facility] Start: 09-04-2022 Administration of blood product [facility] Start: 09-04-2022 Administration of blood product [facility] Start: 09-04-2022 Catheterization of vein [facility] Start: 09-04-2022 Administration of blood product [facility] Start: 09-04-2022 Catheterization of vein [facility] Start: 09-04-2022 Medication not administered [facility] Start: 09-04-2022 Notification of physician [facility] Start: 09-03-2022 Chart related administrative procedure [facility] Start: 09-03-2022 Referral to boomswing operator [facility] Start: 09-02-2022 Application of intermittent pneumatic compression device [facility] Start: 09-02-2022 [facility] Start: 09-02-2022 Assessment of risk of venous thromboembolism [facility] Start: 09-02-2022 Fall prevention [facility] Start: 09-02-2022 Inhalation therapy procedure [facility] Start: 09-02-2022 Insertion of catheter into peripheral vein [facility] Start: 09-02-2022 Introduction of urinary catheter [facility] Start: 09-02-2022 Measuring intake and output [facility] Start: 09-02-2022 Providing care according to standard [facility] Start: 09-02-2022 Provision of activity privileges [facility] Start: 09-02-2022 Referral to gastroenterology service [facility] Start: 09-02-2022 Referral to service [facility] Start: 09-02-2022 [facility] Start: 09-02-2022 End: 09-02-2022 Following clinical pathway protocol [facility] Start: 09-02-2022 Admission procedure [facility] Start: 09-02-2022 Patient referral to dietitian [facility] Start: 07-24-2022 ADVANCE DIRECTIVE DISCUSSION ADVANCE DIRECTIVE DISCUSSION [facility] Start: 07-24-2022 DEPRESSION ASSESSMENT DEPRESSION ASSESSMENT [facility] Start: 05-25-2022 Patient referral to dietitian [facility] Start: 04-12-2022 End: 06-12-2022 25-hydroxyvitamin D3 [Mass/volume] in Serum or Plasma VITAMIN D 25 HYDROXY Lab Routine Low vitamin D level Expected: 04/12/2022, Expires: 06/12/2022 [facility] Work Phone: Comment on above: Expected: 04/12/2022, Expires: 2 Start: 04-12-2022 End: 06-12-2022 CBC W Auto Differential panel - Blood CBC + DIFF Lab Routine Medication management Expected: 04/12/2022, Expires: 06/12/2022 [facility] Work Phone: Comment on above: Expected: 04/12/2022, Expires: 2 Start: 04-12-2022 End: 06-12-2022 Comprehensive metabolic 2000 panel - Serum or Plasma COMP METABOLIC PANEL Lab Routine Essential hypertension, benign Mixed hyperlipidemia Expected: 04/12/2022, Expires: 06/12/2022 [facility] Work Phone: Comment on above: Expected: 04/12/2022, Expires: 2 Start: 04-12-2022 End: 06-12-2022 LIPID PANEL, NONFASTING LIPID PANEL, NONFASTING Lab Routine Coronary artery disease due to lipid rich plaque Essential hypertension, benign Mixed hyperlipidemia Expected: 04/12/2022, Expires: 06/12/2022 [facility] Work Phone: Comment on above: Expected: 04/12/2022, Expires: 2 Start: 04-12-2022 End: 06-12-2022 Prostate Specific Ag Free [Mass/volume] in Serum or Plasma PSA FREE Lab Routine Elevated PSA Expected: 04/12/2022, Expires: 06/12/2022 [facility] Work Phone: Comment on above: Expected: 04/12/2022, Expires: 2 Start: 04-12-2022 End: 06-12-2022 Urate [Mass/volume] in Serum or Plasma URIC ACID BLOOD Lab Routine Gout without tophus Expected: 04/12/2022, Expires: 06/12/2022 [facility] Work Phone: Comment on above: Expected: 04/12/2022, Expires: 2 Start: 04-12-2022 End: 06-12-2022 Urinalysis complete panel - Urine URINALYSIS, WITH MICROSCOPIC Lab Routine Essential hypertension, benign Mixed hyperlipidemia Expected: 04/12/2022, Expires: 06/12/2022 [facility] Work Phone: Comment on above: Expected: 04/12/2022, Expires: 2 Start: 03-25-2022 Patient referral to dietitian [facility] Work Phone: Start: 03-24-2022 Influenza vaccination [facility] Start: 03-15-2022 ANNUAL PCP TEAM CHRONIC DISEASE VISIT ANNUAL PCP TEAM CHRONIC DISEASE VISIT [facility] Start: 03-15-2022 BP CONTROLLED (<130/80) BP CONTROLLED (<130/80) [facility] Start: 03-15-2022 Hepatitis B surface antibody level LDL CHOLESTEROL [facility] Start: 03-15-2022 SHINGRIX VACCINE (1 of 2) SHINGRIX VACCINE (1 of 2) [facility] Comment on above: Postponed from 2000 (Insurance Cov erage) Start: 03-15-2022 Urine microalbumin profile DTAP,TDAP,TD (2 - Td or Tdap) [facility] Comment on above: Postponed from 03/04/2018 (Insurance Cov erage) Start: 09-24-2021 COVID-19 VACCINE (3 - Booster for Soy series) COVID-19 VACCINE (3 - Booster for Soy series) [facility] Start: 07-24-2021 ADVANCE DIRECTIVE DISCUSSION ADVANCE DIRECTIVE DISCUSSION [facility] Start: 07-24-2021 DEPRESSION ASSESSMENT DEPRESSION ASSESSMENT [facility] Start: 07-22-2021 COVID-19 VACCINE (3 - Booster for Soy series) COVID-19 VACCINE (3 - Booster for Soy series) [facility] Start: 11-26-2020 COVID-19 VACCINE (2 - Booster for Soy series) COVID-19 VACCINE (2 - Booster for Soy series) [facility] Start: 03-04-2018 Urine microalbumin profile [facility] Start: 03-08-2017 FECAL OCCULT BLOOD FECAL OCCULT BLOOD [facility] Start: 03-08-2017 Screening for malignant neoplasm of colon Fecal Occult Blood [facility] Start: 2010 Hepatitis B Vaccine (1 of 3 - Risk 3-dose series) Hepatitis B Vaccine (1 of 3 - Risk 3-dose series) [facility] Start: 2010 RSV Vaccine (1 - 1-dose 60+ series) RSV Vaccine (1 - 1-dose 60+ series) [facility] Start: 2010 RSV Vaccine (1 - Risk 60-74 years 1-dose series) RSV Vaccine (1 - Risk 60-74 years 1-dose series) [facility] Start: 2000 SHINGRIX VACCINE (1 of 2) SHINGRIX VACCINE (1 of 2) [facility] Start: 10-20-1995 COLOGUARD (FIT-DNA) COLOGUARD (FIT-DNA) [facility] Start: 10-20-[address] COLONOGRAPHY [facility] Start: 10-20-1995 Screening for malignant neoplasm of colon [facility] Start: 10-20-1995 SIGMOIDOSCOPY SIGMOIDOSCOPY [facility] Start: 1969 Hepatitis A Vaccine (1 of 2 - Risk 2-dose series) Hepatitis A Vaccine (1 of 2 - Risk 2-dose series) [facility] Start: 1950 Abdominal aortic aneurysm screening Abdominal Aortic Aneurysm Screening [facility] Bacteria identified in Sputum by Respiratory culture [facility] Bilirubin measuremen t, urine [facility] Blood ammonia measurement [facility] C reactive protein [Mass/volume] in Serum or Plasma [facility] Calculus analysis [facility] CBC W Auto Different ial panel - Blood [facility] Complement C1 estera se inhibitor.functional/Comp lement C1 esterase inhibitor.total in Serum or Plasma [facility] Comprehensive metabo lic 2000 panel - Serum or Plasma [facility] End: 09-19-2024 Ct abdomen w/o & w/contrast material CT KIDNEY WO/W IVCON Radiology Routine Other specified disorders of kidney and ureter Kidney lesion 1 Occurrences starting 08/21/2023 until 09/19/2024 [facility] Work Phone: Comment on above: 1 Occurrences starting 08/21/2023 until 09/19/2024 Ct abdomen w/o & w/contrast material CT KIDNEY WO/W IVCON Radiology Routine Other specified disorders of kidney and ureter Kidney lesion 08/28/2023 11:58 AM EST [facility] Work Phone: End: 03-08-2025 CT Neck W contrast IV [facility] Comment on above: 1 Occurrences starting 02/07/2024 until 03/08/2025 End: 03-08-2025 CTA Head Arteries W contrast IV [facility] Work Phone: Comment on above: 1 Occurrences starting 02/07/2024 until 03/08/2025 Folate [Moles/volume ] in Serum or Plasma [facility] Hemoglobin [Presence ] in Urine [facility] Hepatitis A virus Ig M Ab [Presence] in Serum [facility] Hepatitis B core ant ibody measurement, IgM type [facility] Hepatitis B surface antigen measurement [facility] Hepatitis C antibody measurement [facility] IgE [Units/volume] i n Serum or Plasma [facility] Lipid 1996 panel - S rosana or Plasma [facility] Magnesium measurement [facility] Measurement of keton es in urine using dipstick [facility] Measurement of weigh t of calculus [facility] Microscopic urinalysis [facility] MONOCLONAL PROT 24 U R W/INTERP MONOCLONAL PROT 24 UR W/INTERP Lab Routine Hypercalcemia Monoclonal gammopathy Ordered: 09/27/2024 [facility] Comment on above: Ordered: 09/27/2024 End: 01-30-2025 MR Brain WO contrast MRI BRAIN WO IVCON Radiology Routine Other symptoms and signs involving the nervous system 1 Occurrences starting 01/01/2024 until 01/30/2025 [facility] Comment on above: 1 Occurrences starting 01/01/2024 until 01/30/2025 End: 01-30-2025 MRA Head vessels WO contrast MRA BRAIN WO IVCON Radiology Routine Other symptoms and signs involving the nervous system 1 Occurrences starting 01/01/2024 until 01/30/2025 [facility] Comment on above: 1 Occurrences starting 01/01/2024 until 01/30/2025 End: 01-30-2025 MRA Neck vessels WO contrast MRA CAROTID WO IVCON Radiology Routine Other symptoms and signs involving the nervous system 1 Occurrences starting 01/01/2024 until 01/30/2025 [facility] Comment on above: 1 Occurrences starting 01/01/2024 until 01/30/2025 Origin of [facility] Patient Education ED Angioedema [facility] Work Phone: Patient referral [facility] Work Phone: pH of Urine [facility] PROT ELEC UR 24HR W/ M SPIKE (P) PROT ELEC UR 24HR W/M SPIKE (P) Lab Routine Hypercalcemia Monoclonal gammopathy Ordered: 09/27/2024 [facility] Comment on above: Ordered: 09/27/2024 PROT ELEC UR 24HR W/ M SPIKE AND INTERP PROT ELEC UR 24HR W/M SPIKE AND INTERP Lab Routine Hypercalcemia Monoclonal gammopathy Ordered: 09/27/2024 [facility] Comment on above: Ordered: 09/27/2024 Protein [Mass/time] in 24 hour Urine PROTEIN, 24 HOUR URINE Lab Routine Hypercalcemia Monoclonal gammopathy Ordered: 09/27/2024 [facility] Comment on above: Ordered: 09/27/2024 Prothrombin time [facility] Removal impacted cer umen irrigation/lvg unilat AMBULATORY EAR LAVAGE/IRRIGATION Procedures Routine Excessive ear wax, right Ordered: 04/20/2023 [facility] Work Phone: Comment on above: Ordered: 04/20/2023 Specific gravity of Urine [facility] Specimen color determination [facility] Tryptase [Mass/volum e] in Serum or Plasma [facility] Urine blood test [facility] Urine dipstick for glucose [facility] Urine dipstick for leukocyte esterase [facility] Urine dipstick for nitrite [facility] Urine dipstick for protein [facility] Urine examination [facility] Urine microscopy: epithelial cells [facility] Urine Microscopy: wh ite cells [facility] Urobilinogen [Presen ce] in Urine [facility] End: 12-01-2025 US Abdominal Aorta for screening US SCREENING FOR AAA Radiology Routine Screening for abdominal aortic aneurysm 1 Occurrences starting 11/01/2024 until 12/01/2025 [facility] Work Phone: Comment on above: 1 Occurrences starting 11/01/2024 until 12/01/2025 US Carotid arteries [facility] End: 11-22-2025 XR Bones Complete Survey Views XR BONE SURVEY ROUTINE Radiology Routine Monoclonal gammopathy 1 Occurrences starting 10/23/2024 until 11/22/2025 [facility] Work Phone: Comment on above: 1 Occurrences starting 10/23/2024 until 11/22/2025 XR Bones Complete Harry rvey Views XR BONE SURVEY ROUTINE Radiology Routine Monoclonal gammopathy 10/23/2024 2:49 PM EDT [facility] Immunizations Immunization Date Immunization Notes Care Provider Fa [facility] 11-06-2024 respiratory syncytia l virus (RSV) vaccine, bivalent (ABRYSVO) Suzanna Dawson PA-C Work Phone: [facility] 11-06-2024 tetanus toxoid, redu el diphtheria toxoid, and acellular pertussis vaccine, adsorbed Suzanna Dawson PA-C Work Phone: [facility] 05-01-2024 COVID-19 vaccine, ag e 12+ yr ([employer]) Suzanna Dawson PA-C Work Phone: [facility] 05-01-2024 influenza, high dose seasonal, preservative-free Suzanna Dawson PA-C Work Phone: [facility] 05-01-2024 influenza virus vacc ine, unspecified formulation Nurse Wstr Work Phone: [facility] 04-20-2023 influenza (HD-IIV4) vaccine, age 65+ yr, high dose, quadrivalent, PF (FLUZONE HIGH-DOSE) Valeriano Beasley MD Work Phone: [facility] 04-20-2023 pneumococcal (PCV20) vaccine, 20 valent (PREVNAR 20) Valeriano Beasley MD Work Phone: [facility] 04-20-2023 pneumococcal Conjuga te, unspecified formulation Valeriano Beasley MD Work Phone: [facility] Work Phone: 04-20-2023 influenza virus vacc ine, unspecified formulation Valeriano Beasley MD Work Phone: [facility] 08-12-2019 influenza, high dose seasonal, preservative-free Ganesh White MA [facility] 08-01-2018 influenza, high dose seasonal, preservative-free Ganesh White MA [facility] 08-01-2018 pneumococcal conjuga te vaccine, 13 valent Ganesh Cindy MILLS [facility] 01-07-2016 pneumococcal polysaccharide vaccine, 23 valent Ganesh White MA [facility] 07-16-2013 influenza virus vacc ine, unspecified formulation Ganesh White MA [facility] 07-12-2011 influenza virus vacc ine, unspecified formulation Ganesh White MA [facility] 03-04-2008 tetanus toxoid, redu el diphtheria toxoid, and acellular pertussis vaccine, adsorbed Ganesh White [facility] Work Phone: 06-02-2005 influenza virus vacc ine, unspecified formulation Ganesh White [facility] Work Phone: Payers Date Payer Category Payer Self-pay 2022 Medicare (Managed Care) [facility] MEDICARE O [id number] 2022 Unknown [id number] 2022 Medicare [id number] 2022 Private Health Insurance [id number] 2021 Medicare HUMANA MEDICARE HUMANA GOLD PLUS [id number] 2021-[facility] [phone] [place] [id number] [facility] [id number] 2021 Medicare [id number] 1950 Unknown [id number] 2.16.840.1.591254.3.579. 2.627 1950 Unknown [id number] 2.16.840.1.320211.3.579. 2.627 1950 Unknown [id number] 2.16.840.1.426898.3.579. 2.627 Unknown [id number] Unknown [id number] 2.16.840.1.024742.3.579. 2.462 Unknown [id number] 2.16.840.1.447275.3.579. 2.462 Unknown [id number] 2.16.840.1.883294.3.579. 2.462 Unknown [id number] 2.16.840.1.382790.3.579. 2.462 Unknown [id number] 2.16.840.1.251927.3.579. 2.462 Unknown [id number] 2.16.840.1.007829.3.579. 2.462 Unknown [id number] 2.16.840.1.796302.3.579. 2.462 Unknown [id number] 2.16.840.1.649838.3.579. 2.462 Unknown [id number] 2.16.840.1.338166.3.579. 2.462 Unknown [id number] 2.16.840.1.835332.3.579. 2.462 Unknown [id number] 2.16.840.1.165533.3.579. 2.462 Unknown [id number] 2.16.840.1.194608.3.579. 2.462 Unknown [id number] 2.16.840.1.526056.3.579. 2.462 Unknown [id number] 2.16.840.1.750858.3.579. 2.462 Unknown [id number] 2.16.840.1.244317.3.579. 2.462 Unknown [id number] 2.16.840.1.150157.3.579. 2.462 Unknown [id number] 2.16.840.1.123676.3.579. 2.462 Unknown [id number] 2.16.840.1.139407.3.579. 2.462 Unknown [id number] 2.16.840.1.399140.3.579. 2.462 Unknown [id number] 2.16.840.1.085742.3.579. 2.462 Social History Date Type Detail Facility Tobacco smoking status [facility] Start: 1950 Sex Assigned At Male [facility] Start: 07-12-2011 End: 12-13-2021 Tobacco smoking status CTIS Never smoked tobacco [facility] Start: 03-17-2021 End: 01-01-2025 Alcohol intake Current drinker of alcohol (finding) [facility] Start: 1950 Sex Assigned At Not on file [facility] Start: 11-22-2021 End: 04-18-2022 Exposure to SARS-CoV-2 (event) Not sure [facility] Start: 12-05-2021 History SDOH Social Connections Phone 5 [facility] Start: 12-05-2021 History SDOH Social Connections Get Together 3 [facility] Start: 12-05-2021 History SDOH Social Connections Membership 1 [facility] Start: 12-05-2021 History SDOH Social Connections Meetings 2 [facility] Start: 12-05-2021 History SDOH Social Connections Living 4 [facility] Start: 03-25-2022 End: 09-05-2023 Tobacco smoking status NHIS Unknown if ever smoked [facility] Start: 07-12-2011 End: 09-03-2024 Tobacco use and exposure Smokeless tobacco non-user [facility] Start: 12-05-2021 End: 04-20-2023 History of Social function [facility] Start: 12-05-2021 End: 04-20-2023 Social connection and isolation panel [facility] Do you belong to any clubs or organizations such as restorationist groups, unions, fraternal or athletic groups, or school groups? Yes [facility] Are you now , , , , never or living with a partner? [facility] How often to you hav e a drink containing alcohol? Patient refused [facility] How hard is it for y ou to pay for the very basics like food, housing, medical care, and heating Somewhat hard [facility] (I/We) worried whemony er (my/our) food would run out before (I/we) got money to buy more. Never true [facility] In the past 12 month s, was there a time when you were not able to pay the mortgage or rent on time? No [facility] Start: 12-05-2021 Gender identity Identifies as male gender (finding) [facility] Start: 12-05-2021 Sexual orientation Heterosexual (finding) [facility] Start: 09-03-2024 End: 01-23-2025 Tobacco smoking status NHIS Ex-smoker [facility] History of tobacco use Current smoker [facility] History of tobacco use Cigarette Smoker [facility] Start: 09-03-2024 Alcohol Comment 6 pack of beer a week on average [facility] Start: 10-04-2024 End: 11-11-2024 Sex Male (finding) [facility] Medical Equipment Procedure Code Equipment Code Equipment [...] Assessment Result Facility 12-30-2024 Functional status Chair [facility] Work Phone: 09-10-2022 Functional status Ambulates [facility] Work Phone: 01-27-2022 Functional Status Ambulating in [place], Ambulating in room [facility] 01-27-2022 Functional Status [facility] 01-27-2022 Functional Status [facility] 01-27-2022 Functional Status Room check performed [facility] 12-01-2021 Functional Status [facility] 12-01-2021 Functional Status [facility] 12-01-2021 Functional Status [facility] 12-01-2021 Functional Status [facility] 12-01-2021 Functional Status [facility] 12-01-2021 Functional Status [facility] 11-30-2021 Functional Status [facility] 11-30-2021 Functional Status [place] [...] 12/08/2014 6:06 PM Ganesh Cochran MA No [facility] 12-08-2014 Are you blind, or do you have serious difficulty seeing, even when wearing glasses No 12/08/2014 6:06 PM Ganesh Cochran MA No [facility] 12-08-2014 Do you have serious difficulty walking or climbing stairs No 12/08/2014 6:06 PM Ganesh Cochran MA No [facility] 12-08-2014 Do you have difficul ty dressing or bathing No 12/08/2014 6:06 PM Ganesh Cochran MA No [facility] 12-08-2014 Because of a physica l, mental, or emotional condition, do you have difficulty doing errands alone such as visiting a physician's office or shopping No 12/08/2014 6:06 PM Ganesh Cochran MA No [facility] Mental Status Date Assessment Result Facility 12-29-2024 Cognitive function Voice/Name [facility] Work Phone: 12-28-2024 Cognitive function Sedated [facility] Work Phone: 09-10-2022 Cognitive function Voice/Name [facility] Work Phone: 01-27-2022 Mental Status Orientation Oriented x 4 [facility] 01-27-2022 Mental Status [facility] 01-27-2022 Mental Status [facility] 12-01-2021 Mental Status [facility] 12-01-2021 Mental Status [facility] 11-30-2021 Mental Status [facility] 11-29-2021 Mental Status [facility] 11-29-2021 Mental Status [facility] 12-08-2014 Because of a physica l, mental, or emotional condition, do you have serious difficulty concentrating, remembering, or making decisions No 12/08/2014 6:06 PM EDT Ganesh White MA No [facility] Clinical Notes 08-01-2018 to 01-23-2025 Telephone Encounter - Sean Abbasi RN - 01/23/2025 12:59 PM EDTTelephone Encounter - Sean Abbasi RN - 01/23/2025 12:59 PM EDTTelephone Encounter - Zakiya Spangler MA - 01/23/2025 11:57 AM EDT Note Date & Type Note Facility 01-23-2025 Telephone encounter Note See triage note. Pt agreeable to ER. [facility] 01-23-2025 Miscellaneous Notes See triage note. Pt agreeable to ER. Appt placed on Nurse Triage do due to no response from pt and message not being read. Want to get an update. Pt did not feel he needed an appt. Zakiya Spangler MA Asked pt additional questions prior to sending to PCP. Zakiya Spangler MA documented in this encounter [facility] 01-23-2025 Telephone encounter Note Pt [...] states he is going to appt with linseed oil press tender first. Reports he has had 5 episodes of tongue swelling since Jun and linseed oil press tender is going to help him with this. Pt states if rectal bleed starts again he will go straight to ER instead of allergy appt, otherwise he will go to allergy appt at 2 pm first. Phoned and spoke with nurse Mila at [facility] ER and given report. Advised pt [...] dizziness. Reports he feels pretty good. Hx OK 2021- sometimes get short of breath on exertion. 10. : N/A Protocols used: Rectal Xmhcflxi-QBCWI-SF [facility] 01-23-2025 Miscellaneous Notes Pt reports [...] states he is going to appt with linseed oil press tender first. Reports he has had 5 episodes of tongue swelling since Jun and linseed oil press tender is going to help him with this. Pt states if rectal bleed starts again he will go straight to ER instead of allergy appt, otherwise he will go to allergy appt at 2 pm first. Phoned and spoke with nurse Mila at [facility] ER and given report. Advised pt [...] dizziness. Reports he feels pretty good. Hx OK 2021- sometimes get short of breath on exertion. 10. : N/A Protocols used: Rectal Mylwedge-MMOSV-TE documented in this encounter [facility] 01-23-2025 Telephone encounter Note Appt placed on Nurse Triage do due to no response from pt and message not being read. Want to get an update. Pt did not feel he needed an appt. Zakiya Spangler MA [facility] 01-23-2025 Telephone encounter Note Asked pt additional questions prior to sending to PCP. Zakiya Spangler MA [facility] 01-01-2025 Note HNO ID: [id number] Author: SUZANNA DAWSON PA-C Service: ? Author Type: Physician Flight Crew Scheduler Type: Progress Notes Filed: 01/01/2025 12:06 Note [...] pharmacy and is scheduled to see an Education Director on January 23. Prozac was discontinued by the hospitalist due to possible correlation with angioedema. 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 diphenhydrAMINE ( (more content not included)... [facility] 01-01-2025 History of Presen t illness [...] pharmacy and is scheduled to see an Education Director on January 23. Prozac was discontinued by the hospitalist due to possible correlation with angioedema. 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 Will follow with them for further evaluation of angioedema episodes. Agrees to hold off on starting new medication for anxiety/depression until seeing the linseed oil press tender based off their recommendations. 2. Essential hypertension, benign - ICD9: 401.1, ICD10: I10 Well controlled, no new concerns. - AMLODIPINE 5 MG TABLET Patient to follow up as needed and as scheduled for routine. Milena REDDING I have personally seen and examined the patient and performed the medical-decision making components. I have reviewed the Physician Flight Crew Scheduler (PA) student's documentation and verified the findings in the note as written. Any additions or changes are noted in bold/italics. Suzanna Dawson PA-C documented in this encounter [facility] 12-30-2024 Discharge summary Note Date/Time December 30, 2024 9:04a [facility] Medical Records Department [address] [place] [address] Discharge Summary 12/30/24 0854 MR#: [id number] Acct: [id number] Name: NAZARIO HUTTON Rep #:[id number] : 1950 74 From: Alexi lOivas DO PCP: Dr. Valeriano Beasley MD Status:ADM IN Location: ICU ICU07-1 Providers Date of Admission: 12/27/24 Primary Care Physician: Dr. Valeriano Beasley MD Consultations 12/27/24 16:14 Consult: Wash Mill Operator / Pulmonary Medicine Routine Consulting Provider: Intensivists/Pulmonary [...] Sedation w fentanyl and dexmedetomidine gtt. [facility] consult Extubated 12/29 (2) Angioedema: Status: Acute [...] Patient is recommend to follow-up with an linseed oil press tender as outpatient. Patient also have prescription for [...] Clarity Cancelled, Urine pH Cancelled, Ur Specific [place] Cancelled, U Specif Grav (Refrac) Cancelled, Urine [...] 88.6 H, Lymph % (Auto) 3.8 L, Glenn % (Auto) 6.4, Eos % (Auto) 0.0, [...] potentially still get worse. Allergy and Immunology: [facility] [phone]. Dr. Ortiz [phone]. Discharge Orders/Prescriptions Prescriptions: New prednisone 20 mg tablet 40 mg PO DAILY Qty: 10 0RF epinephrine [EpiPen] 0.3 mg/0.3 mL auto-injector 0.3 mg IM X1 PRN (Reason: anaphylaxis/angioedema) Qty: 1 0RF Rx Instructions: for 2 doses Continued cholecalciferol (vitamin D3) 125 mcg (5,000 unit) capsule 125 mcg PO DAILY vitamin B complex [B Complex-Vitamin B12] Tablet 1 tab PO DAILY omega 8-qyl-tcl-fish oil 100-400-1,000 mg capsule 1 cap PO [...] Self Care Charges/Coding Visit Charges Inpatient E&M: 94493 Disch Hosp >30min 12/30/24903 <Electronically signed by Alexi Olivas DO> Cosigner Signature (if applicable): CC: Dr. Alexi Olivas DO; Dr. Valeriano Beasley MD~ Signed [facility] Work Phone: 1(366) 583-158306-09-2025 Progress note [facility] Medical Records Department [address] [place] [address] Progress Note - Wash Mill Operator 12/30/24 0703 MR#: [id number] Acct: [id number] Name: LIVANNAZARIOBRISSA BAL Rep #:[id number] : 1950 74 From: Homer Guzman DO [...] that the patient follow-up with a local allergy/tone artist apprentice for further workup of his recurrent angioedema. This note was generated with [employer] dictation software. It may contain incorrectwords, spelling, [...] Clarity Cancelled, Urine pH Cancelled, Ur Specific [place] Cancelled, U Specif Grav (Refrac) Cancelled, Urine [...] 88.6 H, Lymph % (Auto) 3.8 L, Glenn % (Auto) 6.4, Eos % (Auto) 0.0, [...] affect normal Charges/Coding Visit Charges Inpatient E&M: 60141 Subs Hosp L2 12/30/24 1045 Cosigner Signature (if applicable): CC: ~ Signed [facility]06-09-2025 Discharge summary [facility] Medical Records Department [address] [place] [address] Discharge Summary 12/30/24 0854 MR#: [id number] Acct: [id number] Name: NAZARIO HUTTON Rep #:[id number] : 1950 74 From: Alexi Olivas DO PCP: Dr. Valeriano Beasley MD Status:ADM IN Location: ICU ICU07-1 Providers Date of Admission: 12/27/24 Primary Care Physician: Dr. Valeriano Beasley MD Consultations 12/27/24 16:14 Consult: Wash Mill Operator / Pulmonary Medicine Routine Consulting Provider: Intensivists/Pulmonary [...] Sedation w fentanyl and dexmedetomidine gtt. [facility] consult Extubated 12/29 (2) Angioedema: Status: Acute [...] Patient is recommend to follow-up with an linseed oil press tender as outpatient. Patient also have prescription for [...] Clarity Cancelled, Urine pH Cancelled, Ur Specific [place] Cancelled, U Specif Grav (Refrac) Cancelled, Urine [...] 88.6 H, Lymph % (Auto) 3.8 L, Glenn % (Auto) 6.4, Eos % (Auto) 0.0, [...] potentially still get worse. Allergy and Immunology: [facility] [phone]. Dr. Ortiz [phone]. Discharge Orders/Prescriptions Prescriptions: New prednisone 20 mg tablet 40 mg PO DAILY Qty: 10 0RF epinephrine [EpiPen] 0.3 mg/0.3 mL auto-injector 0.3 mg IM X1 PRN (Reason: anaphylaxis/angioedema) Qty: 1 0RF Rx Instructions: for 2 doses Continued cholecalciferol (vitamin D3) 125 mcg (5,000 unit) capsule 125 mcg PO DAILY vitamin B complex [B Complex-Vitamin B12] Tablet 1 tab PO DAILY omega 9-zmj-aos-fish oil 100-400-1,000 mg capsule 1 cap PO [...] Self Care Charges/Coding Visit Charges Inpatient E&M: 89096 Disch Hosp >30min 12/30/24 0904 Cosigner Signature (if applicable): CC: Dr. Alexi Olivas DO; Dr. Valeriano Beasley MD~ Signed [facility]06-09-2025 Progress note Author Homer Guzman [facility] Note Date/Time December 30, 2024 10:45 am [facility] Medical Records Department [address] [place] [address] Progress Note - Wash Mill Operator 12/30/24 0703 MR#: [id number] Acct: [id number] Name: KALINNAZARIO CHAVEZ VALERIANO Rep #:[id number] : 1950 74 From: Homer Guzman DO [...] that the patient follow-up with a local allergy/tone artist apprentice for further workup of his recurrent angioedema. This note was generated with [employer] dictation software. It may contain incorrectwords, spelling, [...] Clarity Cancelled, Urine pH Cancelled, Ur Specific [place] Cancelled, U Specif Grav (Refrac) Cancelled, Urine [...] 88.6 H, Lymph % (Auto) 3.8 L, Glenn % (Auto) 6.4, Eos % (Auto) 0.0, [...] affect normal Charges/Coding Visit Charges Inpatient E&M: 18134 Subs Hosp L2 12/30/24 1045 <Electronically signed by Homer Guzman DO> Cosigner Signature (if applicable): CC: ~ Signed [facility] Work Phone: 1(966) 597-970806-09-2025 [facility] Medical Records Department [address] [place] [address] Discharge Summary 12/30/24 0854 MR#: [id number] Acct: [id number] Name: NAZARIO HUTTON Rep #: [id number] : 1950 74 From: Alexi Olivas DO PCP: Dr. Valeriano Beasley MD Status:ADM IN Location: ICU ICU07-1 Providers Date of Admission: 12/27/24 Primary Care Physician: Dr. Valeriano Beasley MD Consultations 12/27/24 16:14 Consult: Wash Mill Operator / Pulmonary Medicine Routine Consulting Provider: Intensivists/Pulmonary [...] Sedation w fentanyl and dexmedetomidine gtt. [facility] consult Extubated 12/29 (2) Angioedema: Status: Acute [...] Patient is recommend to follow-up with an linseed oil press tender as outpatient. Patient also have prescription for [...] Clarity Cancelled, Urine pH Cancelled, Ur Specific [place] Cancelled, U Specif Grav (Refrac) Cancelled, Urine [...] Coarse Granular Casts Ca (more content not included)...[facility]06-08-2025 Progress note Author Alexi Olivas [facility] Note Date/Time December 29, 2024 12:41 pm [facility] Medical Records Department [address] [place] [address] Progress Note - Hospitalist 12/29/24 0718 MR#: [id number] Acct: [id number] Name: NAZARIO HUTTON Rep #:[id number] : 1950 74 From: Alexi Olivas DO PCP: Dr. Valeriano Beasley MD Status:ADM IN [facility] Reason for Visit Reason for Visit: [...] 92.1 H, Lymph % (Auto) 2.9 L, Glenn % (Auto) 4.4, Eos % (Auto) 0.0, [...] Sedation w fentanyl and dexmedetomidine gtt. [facility] consult Extubated 12/29 (2) Angioedema: PLAN: unclear [...] discharge 12/30. Charges/Coding Visit Charges Inpatient E&M: 30817 Subs Hosp L2 12/29/24 1241 <Electronically signed by Alexi Olivas DO> Cosigner Signature (if applicable): CC: ~ Signed [facility] Work Phone: 1(209) 106-132706-08-2025 Progress note [facility] Medical Records Department [address] [place] [address] Progress Note - Hospitalist 12/29/24 0718 MR#: [id number] Acct: [id number] Name: NAZARIO HUTTON Rep #:[id number] : 1950 74 From: Alexi Olivas DO [...] 92.1 H, Lymph % (Auto) 2.9 L, Glenn % (Auto) 4.4, Eos % (Auto) 0.0, [...] 12/29/24 05:35 IMPRESSION: See above [facility] Const Constitutional Narrative: Saw before [...] discharge 12/30. Charges/Coding Visit Charges Inpatient E&M: 84405 Subs Hosp L2 12/29/24 1241 Cosigner Signature (if applicable): CC: ~ Signed [facility]06-08-2025 Progress note Author Mohit Myers [facility] Note Date/Time December 29, 2024 9:55a m [facility] Medical Records Department [address] [place] [address] Progress Note - Wash Mill Operator 12/29/24 0919 MR#: [id number] Acct: [id number] Name: NAZARIO HUTTON Rep #:[id number] : 1950 74 From: Mohit Myers MD [...] 92.1 H, Lymph % (Auto) 2.9 L, Glenn % (Auto) 4.4, Eos % (Auto) 0.0, [...] 12/29/24 05:35 IMPRESSION: See above Reading [facility] Assessment and Plan . Assessment and plan: [...] Cosigner Signature (if applicable): CC: ~ Signed [facility] Work Phone: 1(965) 524-850306-08-2025 Progress note [facility] Medical Records Department [address] [place] [address] Progress Note - Wash Mill Operator 12/29/24918 MR#: [id number] Acct: [id number] Name: NAZARIO HUTTON Rep #:[id number] : 1950 74 From: Mohit Myers MD [...] 92.1 H, Lymph % (Auto) 2.9 L, Glenn % (Auto) 4.4, Eos % (Auto) 0.0, [...] 12/29/24 05:35 IMPRESSION: See above Reading [facility] Assessment and Plan . Assessment and plan: [...] Cosigner Signature (if applicable): CC: ~ Signed [facility]06-08-2025 Radiology Diagnostic study note [facility] Imaging Services [address] [place] [address] Chest 1 View (Portable) MR#: [id number] Acct: [id number] Name: NAZARIO HUTTON Rep #: [id number] : 1950 M 74 From: Ebony Carr MD PCP: Dr. Valeriano Beasley MD Status: ADM IN Study:Chest 1 View (Portable) Date of Exam: 12/29/24 Exam# [id number] Ordering Dr: Zina Myers MD PROCEDURE: CHEST [...] View (Portable) IMPRESSION: See above Reading [facility] CC: Dr. Valeriano Beasley MD; Dr. Mohit Myers MD ~ Child And Adolescent Therapist: Signed [facility]06-07-2025 Consult note Author Mohit Myers [facility] Note Date/Time December 28, 2024 9:29p m [facility] Medical Records Department [address] [place] [address] 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 12/28/24 0916 MR#: [id number] Acct: [id number] Name: NAZARIO HUTTON Rep #:[id number] : 1950 74 From: Mohit Myers MD [...] ROS: Unable to obtain as pt intubated [facility] Medical History High serum parathyroid hormone (PTH) Heart murmur Elevated alkaline phosphatase level Elevated PSA Diverticulosis AVM (arteriovenous malformation) of colon Vitamin D deficiency Gout Alcohol abuse Essential hypertension Chest pain Anxiety Depression Myocardial infarct Chest pain Acute blood loss anemia Bloody diarrhea Coronary artery disease Atherosclerotic heart disease of citizen [place] coronary artery without angina pectoris ST elevation [place] (STEMI) (~11/29/21) Hyperlipidemia Hypertension Home Medications ?Medication [...] disease Hypertension Myocardial infarction age 53 following [place]. Surgical History H/O colonoscopy S/P cataract extraction [...] 12/28/24 05:29 IV 12/28/24 18:53 75 mls/hr .[id number] YASMIN Administration Dexmedetomidine HCl 400 mcg/ 100 [...] (Auto) 67.1, Lymph % (Auto) 9.8 L, Glenn % (Auto) 11.2 H, Eos % (Auto) [...] 92.9 H, Lymph % (Auto) 5.0 L, Glenn % (Auto) 1.4, Eos % (Auto) 0.0, [...] Bilateral lower lung airspace disease is seen, ezjm-rqazvps-pxxg-right. Differential diagnosis includes atelectasis and pneumonitis. No evidence of pulmonary edema. The cardiomediastinal silhouette is within the normal range. No acute osseous change is evident. Reading Location: [address] Assessment and Plan . Assessment and [...] applicable): CC: Dr. Valeriano Beasley MD~ Signed [facility] Work Phone: 1(385) 106-954806-07-2025 Consult note [facility] Medical Records Department [address] [place] [address] 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 12/28/2416 MR#: [id number] Acct: [id number] Name: NAZARIO HUTTON Rep #:[id number] : 1950 74 From: Mohit Myers MD [...] ROS: Unable to obtain as pt intubated [facility] Medical History High serum parathyroid hormone (PTH) Heart murmur Elevated alkaline phosphatase level Elevated PSA Diverticulosis AVM (arteriovenous malformation) of colon Vitamin D deficiency Gout Alcohol abuse Essential hypertension Chest pain Anxiety Depression Myocardial infarct Chest pain Acute blood loss anemia Bloody diarrhea Coronary artery disease Atherosclerotic heart disease of citizen [place] coronary artery without angina pectoris ST elevation [place] (STEMI) (~11/29/21) Hyperlipidemia Hypertension Home Medications ?Medication [...] disease Hypertension Myocardial infarction age 53 following [place]. Surgical History H/O colonoscopy S/P cataract extraction [...] 12/28/24 05:29 IV 12/28/24 18:53 75 mls/hr .[id number] YASMIN Administration Dexmedetomidine HCl 400 mcg/ 100 [...] Mg/2 Ml Vial IV 60 mg Q8 YSAMIN Administration Ondansetron HCl 4 mg 12/27/24 16:14 [...] (Auto) 67.1, Lymph % (Auto) 9.8 L, Glenn % (Auto) 11.2 H, Eos % (Auto) [...] 92.9 H, Lymph % (Auto) 5.0 L, Glenn % (Auto) 1.4, Eos % (Auto) 0.0, [...] Bilateral lower lung airspace disease is seen, mhsq-gstikgy-gasz-right. Differential diagnosis includes atelectasis and pneumonitis. No evidence of pulmonary edema. The cardiomediastinal silhouette is within the normal range. No acute osseous change is evident. Reading Location: [address] Assessment and Plan . Assessment and [...] applicable): CC: Dr. Valeriano Beasley MD~ Signed [facility]06-07-2025 Progress note Author Alexi Olivas [facility] Note Date/Time December 28, 2024 2:04p [facility] Medical Records Department [address] [place] [address] Progress Note - Hospitalist 12/28/24 0751 MR#: [id number] Acct: [id number] Name: NAZARIO HUTTON Rep #:[id number] : 1950 74 From: Alexi Olivas DO [...] (Auto) 67.1, Lymph % (Auto) 9.8 L, Glenn % (Auto) 11.2 H, Eos % (Auto) [...] 92.9 H, Lymph % (Auto) 5.0 L, Glenn % (Auto) 1.4, Eos % (Auto) 0.0, [...] with tip approximately 4 cm above the bernaidne. Nasogastric tube seen coursing of the stomach, with tip excluded from view. No pneumothorax is seen. No pleural effusion is evident. Bilateral lower lung airspace disease is seen, cvhp-bgeatkl-amli-right. Differential diagnosis includes atelectasis and pneumonitis. No evidence of pulmonary edema. The cardiomediastinal silhouette is within the normal range. No acute osseous change is evident. Reading Location: [address] Physical Exam Const Constitutional Narrative: on [...] prophylaxis: LMWH. Charges/Coding Visit Charges Inpatient E&M: 52428 Subs Hosp L2 12/28/24 1406 <Electronically signed by Alexi Olivas DO> Cosigner Signature (if applicable): CC: ~ Signed [facility] Work Phone: 1(391) 541-778406-07-2025 Progress note [facility] Medical Records Department [address] [place] [address] Progress Note - Hospitalist 12/28/24 0751 MR#: [id number] Acct: [id number] Name: NAZARIO HUTTON Rep #:[id number] : 1950 74 From: Alexi Olivas DO PCP: Dr. Valeriano Bealsey MD Status:ADM IN Location: ICU ICU07-1 Reason [...] (Auto) 67.1, Lymph % (Auto) 9.8 L, Glenn % (Auto) 11.2 H, Eos % (Auto) [...] 92.9 H, Lymph % (Auto) 5.0 L, Glenn % (Auto) 1.4, Eos % (Auto) 0.0, [...] Bilateral lower lung airspace disease is seen, noit-hrsuckv-bfpc-right. Differential diagnosis includes atelectasis and pneumonitis. No evidence of pulmonary edema. The cardiomediastinal silhouette is within the normal range. No acute osseous change is evident. Reading Location: [address] Physical Exam Const Constitutional Narrative: on [...] Sedation w fentanyl and dexmedetomidine gtt. [facility] consult Extubate when ok with CCM. I [...] prophylaxis: LMWH. Charges/Coding Visit Charges Inpatient E&M: 64593 Subs Hosp L2 12/28/24 1407 Cosigner Signature (if applicable): CC: ~ Signed [facility]06-06-2025 History and physical note Author Flakita Florentino [facility] Note Date/Time December 27, 2024 2:52p m [facility] Medical Records Department [address] [place] [address] H&P Exam - Hospitalist 12/27/24 1411 MR#: [id number] Acct: [id number] Name: NAZARIO HUTTON Rep #:[id number] : 1950 74 From: Flakita Florentino DO PCP: Dr. Valeriano Beasley MD Status:REG ER Location: ED HPI - General General Date of Admission: 12/27/24 Date of Service: 12/27/24 Chief Complaint: Tongue and lip swelling HPI Narrative NAZARIO HUTTON, is a 74 M who presented to the emergency department at [facility] on 12/27/2024 with tongue and lip swelling. [...] maintained on Solu-Medrol, H2 and H1 blockers. [facility] Medical History High serum parathyroid hormone (PTH) Heart murmur Elevated alkaline phosphatase level Elevated PSA Diverticulosis AVM (arteriovenous malformation) of colon Vitamin D deficiency Gout Alcohol abuse Essential hypertension Chest pain Anxiety Depression Myocardial infarct Chest pain Acute blood loss anemia Bloody diarrhea Coronary artery disease Atherosclerotic heart disease of citizen [place] coronary artery without angina pectoris ST elevation [place] (STEMI) (~11/29/21) Hyperlipidemia Hypertension Home Medications ?Medication [...] disease Hypertension Myocardial infarction age 53 following [place]. Surgical History H/O colonoscopy S/P cataract extraction [...] (Auto) 67.1, Lymph % (Auto) 9.8 L, Glenn % (Auto) 11.2 H, Eos % (Auto) [...] Patient should follow-up as an outpatient with linseed oil press tender if has not already done so Chronic [...] Full code Charges/Coding Visit Charges Inpatient E&M: 31928 Init Hosp L2 12/27/24 1452 <Electronically signed by Flakita Florentino DO> Cosigner Signature (if applicable): CC: Dr. Valeriano Beasley MD; Dr. Flakita Florentino DO~ Signed [facility] Work Phone: 1(660) 728-484706-06-2025 Discharge summary Author Marino Holguin [facility] Note Date/Time December 27, 2024 2:20p m [facility] Medical Records Department [address] [place] [address] Emergency Department Summary 12/27/24 MR#: [id number] Acct: [id number] Name: NAZARIO HUTTON Rep #:[id number] : 1950 74 From: Marino Holguin MD [...] Coronary artery disease Atherosclerotic heart disease of citizen [place] coronary artery without angina pectoris ST elevation [place] (STEMI) (~11/29/21) Hyperlipidemia Hypertension Home Medications ?Medication [...] disease Hypertension Myocardial infarction age 53 following [place]. Surgical History H/O colonoscopy S/P cataract extraction [...] (Auto) 67.1 Lymph % (Auto) 9.8 L Glenn % (Auto) 11.2 H Eos % (Auto) [...] is 82 with a first-degree AV block. [place] to the left. MD interval is 270 ms. QRS duration is [...] no mention of angioedema postmarketing reports through [employer]. Will review othersources. Of note patient was [...] prior records and laboratoryresults.), Discussing w/Patient &/or Family/Lathe Operator (Patient was informed that he needs to [...] Eosinophilia, Lymphopenia Disposition Disposition: Acute Care Hospital [facility] What to do if you have Problems For any increased pain, shortness of breath, bleeding, nausea or vomiting, chestpain, or any unexpected problems, contact your Primary Care Provider. Call [facility] ([phone]) or report to the closest Emergency Room. Call 911 if necessary. 12/27/24 1420 <Electronically signed by Marino Holguin MD> Cosigner Signature (if applicable): CC: Dr. Valeriano Beasley MD ~ Signed [facility] Work Phone: 1(224) 273-130406-06-2025 History and physical note [facility] Medical Records Department [address] [place] [address] H&P Exam - Hospitalist 12/27/24 1411 MR#: [id number] Acct: [id number] Name: NAZARIO HUTTON Rep #:[id number] : 1950 74 From: Flakita Florentino DO PCP: Dr. Valeriano Beasley MD Status:REG ER Location: ED HPI - General General Date of Admission: 12/27/24 Date of Service: 12/27/24 Chief Complaint: Tongue and lip swelling HPI Narrative NAZARIO HUTTON, is a 74 M who presented to the emergency department at [facility] on 12/27/2024 with tongue and lip swelling. [...] maintained on Solu-Medrol, H2 and H1 blockers. [facility] Medical History High serum parathyroid hormone (PTH) Heart murmur Elevated alkaline phosphatase level Elevated PSA Diverticulosis AVM (arteriovenous malformation) of colon Vitamin D deficiency Gout Alcohol abuse Essential hypertension Chest pain Anxiety Depression Myocardial infarct Chest pain Acute blood loss anemia Bloody diarrhea Coronary artery disease Atherosclerotic heart disease of citizen [place] coronary artery without angina pectoris ST elevation [place] (STEMI) (~11/29/21) Hyperlipidemia Hypertension Home Medications ?Medication [...] disease Hypertension Myocardial infarction age 53 following [place]. Surgical History H/O colonoscopy S/P cataract extraction [...] (Auto) 67.1, Lymph % (Auto) 9.8 L, Glenn % (Auto) 11.2 H, Eos % (Auto) [...] Patient should follow-up as an outpatient with linseed oil press tender if has not already done so Chronic [...] Full code Charges/Coding Visit Charges Inpatient E&M: 80466 Init Hosp L2 12/27/24 1452 Cosigner Signature (if applicable): CC: Dr. Valeriano Beasley MD; Dr. Flakita Florentino, DO~ Signed [facility]06-06-2025 Radiology Diagnostic study note [facility] Imaging Services [address] [place] [address] Chest 1 View (Portable) MR#: [id number] Acct: [id number] Name: NAZARIO HUTTON Rep #: [id number] : 1950 M 74 From: Hugh Berg MD PCP: Dr. Valeriano Beasley MD Status: REG ER Study:Chest 1 View (Portable) Date of Exam: 12/27/24 Exam# [id number] Ordering Dr: Jake Holguin MD PROCEDURE: CHEST [...] Bilateral lower lung airspace disease is seen, qhlx-wgtbztj-bpjb-right. Differential diagnosis includes atelectasis and pneumonitis. No evidence of pulmonary edema. The cardiomediastinal silhouette is within the normal range. No acute osseous change is evident. Reading Location: [address] CC: Dr. Valeriano Beasley MD; Dr. Marino Holguin MD ~ Child And Adolescent Therapist: Signed [facility]06-06-2025 Discharge summary [facility] Medical Records Department [address] [place] [address] Emergency Department Summary 12/27/24 MR#: [id number] Acct: [id number] Name: NAZARIO HUTTON Rep #:[id number] : 1950 74 From: Marino Holguin MD [...] Coronary artery disease Atherosclerotic heart disease of citizen [place] coronary artery without angina pectoris ST elevation [place] (STEMI) (~11/29/21) Hyperlipidemia Hypertension Home Medications ?Medication [...] disease Hypertension Myocardial infarction age 53 following [place]. Surgical History H/O colonoscopy S/P cataract extraction [...] (Auto) 67.1 Lymph % (Auto) 9.8 L Glenn % (Auto) 11.2 H Eos % (Auto) [...] is 82 with a first-degree AV block. [place] to the left. MD interval is 270 ms. QRS duration is [...] no mention of angioedema postmarketing reports through [employer]. Will review othersources. Of note patient was [...] prior records and laboratoryresults.), Discussing w/Patient &/or Family/Lathe Operator (Patient was informed that he needs to [...] Eosinophilia, Lymphopenia Disposition Disposition: Acute Care Hospital [facility] What to do if you have Problems For any increased pain, shortness of breath, bleeding, nausea or vomiting, chestpain, or any unexpected problems, contact your Primary Care Provider. Call [facility] ([phone]) or report tothe closest Emergency Room. Call 911 if necessary. 12/27/24 1420 Cosigner Signature (if applicable): CC: Dr. Valeriano Beasley MD ~ Signed [facility]06-06-2025 Discharge summary Author Marino Holguin [facility] Note Date/Time December 27, 2024 2:20p m [facility] Medical Records Department [address] [place] [address] Emergency Department Summary 12/27/24 MR#: [id number] Acct: [id number] Name: NAZARIO HUTTON Rep #:[id number] : 1950 74 From: Marino Holguin MD [...] Coronary artery disease Atherosclerotic heart disease of citizen [place] coronary artery without angina pectoris ST elevation [place] (STEMI) (~11/29/21) Hyperlipidemia Hypertension Home Medications ?Medication [...] disease Hypertension Myocardial infarction age 53 following [place]. Surgical History H/O colonoscopy S/P cataract extraction [...] (Auto) 67.1 Lymph % (Auto) 9.8 L Glenn % (Auto) 11.2 H Eos % (Auto) [...] is 82 with a first-degree AV block. [place] to the left. MD interval is 270 ms. QRS duration is [...] no mention of angioedema postmarketing reports through [employer]. Will review othersources. Of note patient was [...] prior records and laboratoryresults.), Discussing w/Patient &/or Family/Lathe Operator (Patient was informed that he needs to [...] drugs, Eosinophilia, Lymphopenia Disposition Disposition: Acute Care [facility] What to do if you have Problems For any increased pain, shortness of breath, bleeding, nausea or vomiting, chestpain, or any unexpected problems, contact your Primary Care Provider. Call [facility] ([phone]) or report to the closest Emergency Room. Call 911 if necessary. 12/27/24 1420 <Electronically signed by Marino Holguin MD> Cosigner Signature (if applicable): CC: Dr. Valeriano Beasley MD ~ Signed [facility] Work Phone: 1(315) 873-612606-05-2025 NoteHNO ID: [id number] Author: LUPILLO MOURA LPN Service: ? Author Type: LICENSED NURSE Type: Progress Notes Filed: 12/26/2024 07:56 Note Text: Scan on 12/26/2024 7:26 AM by ProviderBing PA-C: Consultation - Cardiology [facility]06-05-2025 History of Present illness Narrative* Lupillo Moura LPN - 12/26/2024 7:56 AM EDT Scan on 12/26/2024 7:26 AM by ProviderBing PA-C: Consultation - Cardiology documented in [facility] encounterL[facility]06-[facility]25 NoteHNO ID: [id number] Author: PATRIA KHANNA JR, MD Service: ? 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 Patrai Khanna MD I spent a total of 30+ minutes on the date of the service which included preparing to see the patient, kxlk-ov-znsp patient care, completing clinical documentation, obtaining and/or reviewing separately obtained history, performing a medically appropriate examination, counseling and educating the pa tient/family/caregiver, ordering medications, tests, or procedures, and communicating results to the patient/family/caregiver. PDMP website checked and validated. All prescriptions have been APPROPRIATELY filled. No suspiciousactivity was identified. 12/23/2024 by Patria Khanna MD documented in this encounterL[facility]04-25-2025 Telephone encounter Note * Telephone Encounter - Flakita Pastor MA - 11/15/2024 2:33 PM EDT Additional message left for pt to call back. Flakita Pastor MA [facility]04-25-2025 Miscellaneous Notes* Telephone Encounter - [...] is negative for aneurysm. documented in this encounterLima [facility] Hospital04-22-2025 NoteHNO ID: [id number] Author: GANESH WHITE MA Service: ? Author Type: Thermostat Repairer Type: Progress Notes Filed: 11/12/2024 16:25 Note Text: Scan on 11/05/2024 3:43 PM by Provider, External, PA-C: Chemistry Scan on 11/05/2024 5:16 PM by Provider, External, PA-C: Chemistry Ganesh White [facility]04-22-2025 History of Present illness Narrative* Ganesh White MA - 11/12/2024 4:24 PM EDT Scan on 11/05/2024 3:43 PM by Bing Salmeron PA-C: Chemistry Scan on 11/05/2024 5:16 PM by Bing Salmeron PA-C: Chemistry Ganesh White MA * Flakita Pastor MA - 11/05/2024 3:50 PM EDT Labs resulted at [facility]. View External Labs - Hematology [ID [id number]] documented in this encounterLima [facility] Hospital04-22-2025 NoteHNO ID: [id number] Author: LUPILLO MOURA LPN Service: ? Author Type: LICENSED NURSE Type: Progress Notes Filed: 11/12/2024 07:16 Note Text: Scan on 11/11/2024 4:10 PM by Bing Salmeron PA-C: Consultation - [facility]04-22-2025 History of Present illness Narrative* Lupillo Moura LPN - 11/12/2024 7:16 AM EDT Scan on 11/11/2024 4:10 PM by Bing Salmeron PA-C: Consultation - documented in this encounterLima [facility]04-18-2025 Telephone encounter Note * Telephone Encounter - Zakiya Spangler MA - 11/08/2024 9:10 AM EDT Called and left message on patients voicemail to return call to the office and ask to speak with a triage nurse. Zakiya Spangler MA [facility]04-17-2025 Telephone encounter Note* Telephone Encounter - Rupal Coe MA - 11/07/2024 10:19 AM EDT Left message for patient to return call to office Rupal Coe MA [facility]04-17-2025 Telephone encounter Note* Telephone Encounter - Ni Sauceda APRN.CNP - 11/07/2024 8:48 AM EDT Please let patient know his AAA screening is negative for aneurysm. [facility]04-16-[facility] History of Present illness Narrative* [...] PATIENT PRESENTS WITH AN IMPLANTABLE OR ATTACHED IRRIGATION PUMP INSTALLER: No RADIOLOGY DEPARTMENT: Ultrasound PERIPHERAL IV DATA: Not applicable SIGNED BY: Bhavani Liu RDMS RVT November 06, 2024 4:44 PM documented in this encounterLima Memorial Hospital04-16-2025 NoteHNO ID: [id number] Author: BHAVANI LIU RDMS Service: ? Author Type: Agile Scrum Master Type: Progress Notes Filed: 11/06/2024 16:45 Note [...] PATIENT PRESENTS WITH AN IMPLANTABLE OR ATTACHED IRRIGATION PUMP INSTALLER: No RADIOLOGY DEPARTMENT: Ultrasound PERIPHERAL IV DATA: Not applicable SIGNED BY: Bhavani Liu RDMS RVBrittany November 06, 2024 4:44 [facility]04-15-2025 NoteHNO ID: [id number] Author: FLAKITA PASTOR MA Service: ? Author Type: Thermostat Repairer Type: Progress Notes Filed: 11/12/2024 16:25 Note Text: Labs resulted at [facility]. View External Labs - Hematology [ID [id number]][facility] 11-05-2024 Evaluation note* Diagnosis Onset Date Resolution Status Admit Date 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 acute November 05, 2024 12:58pm Essential hypertension acute Ap 2024 12:58pm Hyperlipidemia acute October 12:58pm Acute respiratory failure resolved December 27, 2024 1:58pm Angioedema resolved December 27, 2024 1:58pm Eosinophilia resolved December 27 1:58pm Hypotension due to drugs resolved December 27, 2024 1:58pm Lymphopenia resolved December 27 1:58pm Monocytosis resolved December 27 1:58pm [facility] Work Phone: 1(267) 354-957004-11-2025 Instructions* Patient Instructions* Ni Sauceda APRN.CNP - 11/01/2024 11:08 AM EDT Vaccinations needed-DTaP, Shingrix, Hep A, RSV, Hep B documented in this encounterLima [facility] Hospital04-11-2025 NoteHNO ID: [id number] Author: NI SAUCEDA APRN.LIGHT RAIL SIG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 Service: ? Author Type: Nurse Practitioner Type: [...] rich plaque 12/06/[address] 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 Specific [place], Ur 1.005 - 1.030 1.019 Hemoglobin/Blood,Ur Negative [...] 571.2, ICD10: K70.30 -Follows with Hepatology at [facility] 3. Advance directive discussed with patient - ICD9: V65.49, ICD10: Z71.89 - ADVANCE CARE PLAN DISCUSSION 4. Valvular heart disease - ICD9: 424.90, ICD10: I38 -Follows with cardiology at [facility] 5. Lumbosacral radiculopathy at L5 - ICD9: [...] ICD10: I25.10, I25.83 -Follows with cardiology at [place] and [facility] 8. Low vitamin D level - [...] - US SCREENING FOR AAA Ni Sauceda APRN.LIGHT RAIL SIG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 documented in this encounterLima [facility] Hospital04-08-2025 Progress note* Result Encounter Note - Stephanie Roy DO - 10/29/2024 5:16 PM EDT Can let him know the bone x-ray showed only signs of degenerative/arthritis with no suspicious lesions. Follow-up as scheduled. [facility] Work Phone: 1(901) 141-478104-08-2025 Miscellaneous Notes* Result Encounter Note - Stephanie Roy DO - 10/29/2024 5:16 PM EDT Can let him know the bone x-ray showed only signs of degenerative/arthritis with no suspicious lesions. Follow-up as scheduled. documented in this encounterLima [facility] Hospital04-02-2025 History of Present illness Narrative* [...] PATIENT PRESENTS WITH AN IMPLANTABLE OR ATTACHED IRRIGATION PUMP INSTALLER: No RADIOLOGY DEPARTMENT: General X-ray: Exam(s) Completed: Bone Survey PERIPHERAL IV DATA: Not applicable SIGNED BY: RT Osman(Federico) October 23, 2024 2:49 PM documented in this encounterLima [facility] Hospital04-02-2025 NoteHNO ID: [id number] Author: KIMBERLY GLASS RT(R) Service: Radiology Author [...] PATIENT PRESENTS WITH AN IMPLANTABLE OR ATTACHED IRRIGATION PUMP INSTALLER: No RADIOLOGY DEPARTMENT: General X-ray: Exam(s) Completed: Bone Survey PERIPHERAL IV DATA: Not applicable SIGNED BY: RT Osman(R) October 23, 2024 2:49 [facility]04-02-2025 NoteHNO ID: [id number] Author: STEPHANIE ROY, DO Service: ? Author Type: Physician Type: Progress Notes Filed: 10/23/2024 14:11 Note Text: Hematologic problem(s): 1) Monoclonal gammopathy. HPI: The patient is a 73 yo male with PMH as outlined below. CAD--[place] PCI 4 stents 2021. 07/2022--Lower GI bleed. 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 HPI: The patient is a 73 yo male with PMH as outlined below. CAD--[place] PCI 4 stents 2021. 07/2022--Lower GI bleed. 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 Stephanie Roy DO documented in this encounterLima [facility] Hospital04-02-2025 NoteHNO ID: [id number] Author: GANESH WHITE MA Service: ? Author Type: Thermostat Repairer Type: Progress Notes Filed: 10/23/2024 11:25 Note Text: Scan on 10/21/2024 3:42 PM by Provider, ELIZABETH Smart: Miscellaneous Lab Ganesh White [facility]04-02-2025 History of Present illness Narrative* Ganesh White MA - 10/23/2024 11:25 AM EDT Scan on 10/21/2024 3:42 PM by Provider, ELIZABETH Smart: Miscellaneous Lab Ganesh White MA documented in this encounterLima [facility] Hospital03-11-2025 Telephone encounter Note * Telephone Encounter - Jagruti Reich - 10/01/2024 1:25 PM EDT Relayed message to patient. Lab and office visit scheduled with patient. Patient aware to poultry picking machine tender 24 hr urine container prior to 10/21 when he comes in for lab work. He willbring urine to that appt. [facility] Work Phone: 1(780) 285-844503-11-2025 Miscellaneous Notes* Telephone Encounter - Jagruti Reich - 10/01/2024 1:25 PM EDT Relayed message to patient. Lab and office visit scheduled with patient. Patient aware to poultry picking machine tender 24 hr urine container prior to 10/21 [...] me. Stephanie Roy DO documented in this encounterLima [facility] Hospital03-11-2025 Telephone encounter Note * Telephone Encounter - Tayler Leahy LPN - 10/01/2024 8:37 AM EDT Second message left for patient to contact office. Tayler Leahy LPN [facility]03-10-2025 Telephone encounter Note* Telephone Encounter - Tayler Leahy LPN - 09/30/2024 8:58 AM EDT Message left for patient to contact office. Tayler Leahy LPN [facility]03-07-2025 Telephone encounter Note* Telephone Encounter - Stephanie Roy DO - 09/27/2024 5:33 PM EST Can let him know the lab work revealed a very low level monoclonal protein which I think will be ofno clinical consequence but does require further workup. Needs ionized calcium and 24-hour urine M spike then office visit with me. Stephanie Roy DO [facility]03-05-[facility] History of Present illness Narrative* Stephanie Roy, - 09/25/2024 2:00 PM EST Patient referred by Dr. 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 HPI: The patient is a 73 yo male with PMH as outlined below. CAD--[place] PCI 4 stents 2021. 07/2022--Lower GI bleed. 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 Stephanie Roy DO documented in this encounterLima Memorial [facility] NoteHNO ID: [id number] Author: STEPHANIE ROY DO Service: ? Author Type: Physician Type: Progress Notes Filed: 09/25/2024 15:01 Note Text: Patient referred by Dr. 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 HPI: The patient is a 73 yo male with PMH as outlined below. CAD--OK PCI 4 stents 2021. 07/2022--Lower GI bleed. 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 Author Type: LICENSED NURSE Type: Progress Notes Filed: 09/24/2024 07:10 Note Text: Scan on 09/23/2024 4:55 PM by Provider, KENNY SmartC: Consultation - Scan on 09/23/2024 10:57 PM by ProviderBing PA-C: [facility] History of Present illness Narrative* Lupillo Moura LPN - 09/24/2024 6:59 AM EST Scan on 09/23/2024 4:55 PM by ProviderBing PA-C: Consultation - Scan on 09/23/2024 10:57 PM by Provider, ELIZABETH Smart: CT Scan documented in this encounterL[facility]03-[facility]25 Radiology Diagnostic study note [facility] Imaging Services [address] [place], [place] [address] Abdomen Single View MR#: [id number] Acct: [id number] Name: NAZARIO HUTTON Rep #: [id number] : 1950 M 73 From: Alejandrina Garcia DO PCP: Dr. Valeriano Beasley MD Status: REG CLI Study:Abdomen Single View Date of Exam: 09/23/24 Exam# [id number] Ordering Dr: Irma Barron MD PROCEDURE: ABDOMEN [...] Beasley MD; Dr. Geovani Barron MD ~ Child And Adolescent Therapist: Signed [facility]02-27-2025 Evaluation note* Diagnosis Onset Date Resolution Status Admit Date Kidney stone on left side acute September 19, 2024 1:55pm Cirrhosis, alcoholic chronic Febr ua2024 1:55pm Hx of lower gastrointestinal bleeding chronic September 19, 2 025 1:55pm [facility] Work Phone: 1(100) 766-654802-27-2025 Evaluation note* Diagnosis Onset Date Resolution Status Admit Date Kidney stone on left side acute September 19, 2024 1:55pm Cirrhosis, alcoholic chronic Febr ua2024 1:55pm Hx of lower gastrointestinal bleeding chronic September 19 1:55pm 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 acute November 05, 2024 12:58pm Essential hypertension acute Ap ril 2024 12:58pm Hyperlipidemia acute October 12:58pm [facility] Work Phone: 1(286) 457-812102-27-2025 Evaluation note* Diagnosis Onset Date Resolution Status Admit Date Kidney stone on left side acute September 19, 2024 1:55pm Cirrhosis, alcoholic chronic Febr 2024 1:55pm Hx of lower gastrointestinal bleeding chronic September 19 025 1:55pm 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 acute November 05, 2024 12:58pm Essential hypertension acute Ap ril 2024 12:58pm Hyperlipidemia acute October 12:58pm Acute respiratory failure acute December 27, 2024 1:58pm Angioedema acute December 27, 2024 1:58pm Eosinophilia acute December 27 1:58pm Hypotension due to drugs acute December 27, 2024 1:58pm Lymphopenia acute December 27 1:58pm Monocytosis acute December 27 1:58pm [facility] Work Phone: 1(819) 149-565102-26-2025 NoteHNO ID: [id number] Author: GANESH WHITE MA Service: ? Author Type: Thermostat Repairer Type: Progress Notes Filed: 09/18/2024 07:58 Note Text: Scan on 09/17/2024 4:35 AM by Provider, Bing PAOndinaC: Miscellaneous Lab Scan on 09/17/2024 9:16 AM by Provider, Bing, PAOndinaC: Miscellaneous Lab Ganesh White [facility]02-26-2025 History of Present illness Narrative* Ganesh White MA - 09/18/2024 7:58 AM EST Scan on 09/17/2024 4:35 AM by Bing Salmeron PA-C: Miscellaneous Lab Scan on 09/17/2024 9:16 AM by Bing Salmeron PA-C: Miscellaneous Lab Ganesh White MA documented in this encounterLima [facility] Hospital02-25-2025 NoteHNO ID: [id number] Author: LUPILLO MOURA LPN Service: ? Author Type: LICENSED NURSE Type: Progress Notes Filed: 09/17/2024 07:00 Note Text: Scan on 09/17/2024 4:35 AM by Bing Salmeron PA-C: Miscellaneous Lab [facility]02-25-2025 History of Present illness Narrative* Lupillo Moura LPN - 09/17/2024 7:00 AM EST Scan on 09/17/2024 4:35 AM by Bing Salmeron PA-C: Miscellaneous Lab documented in this encounterLima [facility] Hospital02-21-2025 NoteHNO ID: [id number] Author: LUPILLO MOURA LPN Service: ? Author Type: LICENSED NURSE Type: Progress Notes Filed: 09/13/2024 07:27 Note Text: Scan on 09/12/2024 5:13 PM by Bing Salmeron PA-C: Chemistry Scan on 09/12/2024 4:19 PM by Bing Salmeron PA-C: Chemistry Scan on 09/12/2024 3:26 PM by Bing Salmeron PA-C: [facility] History of Present illness Narrative* Lupillo Moura LPN - 09/13/2024 7:27 AM EST Scan on 09/12/2024 5:13 PM by Bing Salmeron PA-C: Chemistry Scan on 09/12/2024 4:19 PM by Bing Salmeron PA-C: Chemistry Scan on 09/12/2024 3:26 PM by ProviderBing PA-C: Hematology documented in this encounterLima [facility] Hospital02-15-2025 NoteHNO ID: [id number] Author: LUPILLO MOURA LPN Service: ? Author Type: LICENSED NURSE Type: Progress Notes Filed: 09/07/2024 10:31 Note Text: Scan on 09/06/2024 6:27 PM by Bing Salmeron PA-C: [facility] History of Present illness Narrative* Lupillo Moura LPN - 09/07/2024 10:31 AM EST Scan on 09/06/2024 6:27 PM by Bing Salmeron PA-C: CT Scan documented in this encounterLima Memorial Hospital02-11-2025 History of Present illness Narrative* Nyla De Jesus DO - 09/03/2024 3:10 PM EST Images from the original note were not included. Rheumatology Clinic New Patient Virtual Note Date of Service: 09/03/2024 Patient: Nazario Hutton Medical Record: [id number] Primary Care Physician: Valeriano Beasley MD [facility] Referring Provider: Patria Khanna [address] [place] [address] Khanna, Patria Solis [...] went to neurology. 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 [facility] on 09/03/24 C3 COMPLEMENT C4 COMPLEMENT SEDIMENTATION RATE, WESTERGREN C-REACTIVE PROTEIN DNA ANTIBODY DS BLD COMPLETE BLOOD COUNT AND DIFFERENTIAL COMPREHENSIVE METABOLIC PANEL CONSULT TO RHEUM/IMMUN DISEASE No follow-ups on file. Nyla De Jesus DO Rheumatology 09/02/2024 I spent a total of 62 minutes on the date of the service which included preparing to see the patient, obkp-wj-ycpw patient care, completing clinical documentation, obtaining and/or reviewing separately obtained history, performing a medically appropriate examination, counseling and educating the pat ient/family/caregiver, ordering medications, tests, or procedures, communicating with other HCPs (not separately reported), independently interpreting results (not separately reported), and communicating results to the patient/family/caregiver. documented in this encounterLima [facility] Hospital02-11-2025 NoteHNO ID: [id number] Author: NYLA DE JESUS DO Service: ? Author Type: Physician Type: Progress Notes Filed: 09/04/2024 10:18 Note Text: Rheumatology Clinic New Patient Virtual Note Date of Service: 09/03/2024 Patient: Nazario Hutton Medical Record: [id number] Primary Care Physician: Valeriano Beasley MD Last [facility] visit: [facility] Referring Provider: Patria Khanna [address] [place] [address] Khanna, Patria Solis [...] went to neurology. He was referred to office services specialist and was told that some nerve [...] diphenhydrAMINE (BENADRYL) 25 m (more content not included)...[facility]02-11-2025 Telephone encounter Note* Telephone Encounter - [...] If he agrees, I will place consult. [facility]02-11-2025 Miscellaneous Notes* Telephone Encounter - [...] I will place consult. documented in this encounterLima [facility] Hospital02-11-2025 Telephone encounter Note * Telephone [...] If he agrees, I will place consult. [facility]02-11-2025 Miscellaneous Notes* Telephone Encounter - [...] I will place consult. documented in this encounterLima [facility] Hospital02-07-2025 NoteHNO ID: [id number] Author: PATRIA KHANNA JR, MD Service: ? [...] and there occurring in the setting of OK/cardiac condition, do need to be concerned that [...] benefit of repeating EMG/NCV as will not poultry picking machine tender small fiber disorder and still too early [...] 13.1 Platelet Count (k/uL) (more content not included)...[facility] 08-30-2024 History of Present illness Narrative* [...] and there occurring in the setting of OK/cardiac condition, do need to be concerned that [...] benefit of repeating EMG/NCV as will not poultry picking machine tender small fiber disorder and still too early [...] (AI) Date Value 01/02/2024 <0.2 URINALYSIS Specific [place], Ur Date Value Ref Range Status 04/04/2024 [...] due to lower GI bleed from diverticulosis) 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 [...] Sleep Apnea Probability Score: 67 (Recommend sleep study)[facility]02-05[facility]25 NoteHNO ID: [id number] Author: LUPILLO MOURA LPN Service: ? Author Type: LICENSED NURSE Type: Progress Notes Filed: 08/28/2024 07:04 Note Text: Scan on 08/27/2024 4:55 PM by Provider, External, PAOndinaC: Consultation - [facility]02-05-2025 History of Present illness Narrative* Lupillo Moura LPN - 08/28/2024 7:04 AM EST Scan on 08/27/2024 4:55 PM by Provider, Bing, ELIZABETH: Consultation - documented in this encounterLima [facility] Hospital01-27-2025 NoteHNO ID: [id number] Author: ARUN CHRISTIAN, DO Service: ? 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 documented in this encounterLima [facility] Hospital01-27-2025 NoteHNO ID: [id number] Author: OLGA MARCIAL RN Service: ? 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 Consult placed. - discussed [...] which included preparing to see the patient, knqo-fe-vkci patient care, completing clinical documentation, performing a medically appropriate examination, counseling and educating the patient/family/caregiver and ordering medications, tests, or procedures. Valeriano Beasley MD documented in this encounterLima [facility] Hospital01-08-2025 NoteHNO ID: [id number] Author: VALERIANO BEASLEY MD Service: ? 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 Pineda Styles RN July 19, 2024 2:43 PM [facility]12-27-[facility] Miscellaneous Notes* Telephone Encounter - [...] Needs 30 day supply to go to [facility] and 90 day supply to go to [facility]. Pineda Styles RN July 19, 2024 2:43 PM documented in this encounterLima Memorial Hospital12-27-2024 NoteHNO ID: [id number] Author: LUPILLO MOURA LPN Service: ? Author Type: LICENSED NURSE Type: Progress Notes Filed: 07/19/2024 07:31 Note Text: Scan on 07/18/2024 4:24 PM by Bing Salmeron PA-C: Consultation - Emergency MedicineL[facility] Hospital12-27-2024 History of Present illness Narrative* Lupillo Moura LPN - 07/19/2024 7:31 AM EST Scan on 07/18/2024 4:24 PM by Bing Salmeron PA-C: Consultation - Emergency Medicine documented in this encounterLima [facility] Hospital11-13-2024 Note* Addendum Note - Valeriano Beasley MD - 06/05/2024 9:08 AM ESTAddended by: VALERIANO BEASLEY on: 06/05/2024 09:08 AM Modules accepted: Orders [facility]11-13-2024 Miscellaneous Notes* Addendum Note - Valeriano Beasley MD - 06/05/2024 9:08 AM ESTAddended by: VALERIANO BEASLEY on: 06/05/2024 09:08 AM Modules accepted: Orders documented in this encounterLima [facility] Hospital11-13-2024 NoteHNO ID: [id number] Author: LUPILLO MOURA LPN Service: ? Author Type: LICENSED NURSE Type: Progress Notes Filed: 06/05/2024 07:36 Note Text: Scan on 06/04/2024 2:56 PM by Bing Salmeron PA-C: Consultation - GI [facility]11-13-20[facility] History of Present illness Narrative* Lupillo Moura LPN - 06/05/2024 7:36 AM EST Scan on 06/04/2024 2:56 PM by Bing Salmeron PA-C: Consultation - GI documented in this encounterLima Memorial Hospital11-07-2024 NoteHNO ID: [id number] Author: MERRICK SU MA Service: ? Author Type: Thermostat Repairer Type: Progress Notes Filed: 05/30/2024 13:55 Note Text: Scan on 05/30/2024 1:20 PM by Bing Salmeron PA-C: Consultation - [facility]iologyL[facility]11-07-2024 History of Present illness Narrative* Merrick Su MA - 05/30/2024 1:48 PM EST Scan on 05/30/2024 1:20 PM by Bing Salmeron PA-C: Consultation - Cardiology documented in this encounterLima [facility] Hospital11-06-2024 Note* Addendum Note - Suzanna Dawson PA-C - 05/29/2024 1:34 PM ESTAddended by: SUZANNA BYERS on: 05/29/2024 01:34 PM Modules accepted: Level of Service [facility]11-06-2024 Miscellaneous Notes* Addendum Note - Suzanna Dawson PA-C - 05/29/2024 1:34 PM ESTAddended by: SUZANNA BYERS on: 05/29/2024 01:34 PM Modules accepted: Level of Service documented in this encounterLima [facility] Hospital11-06-2024 NoteHNO ID: [id number] Author: SUZANNA DAWSON PA-C Service: ? 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 Author Type: LICENSED NURSE Type: Progress Notes Filed: 05/28/2024 08:48 Note Text: Scan on 05/27/2024 4:25 PM by ProviderBing PA-C: [facility] - [facility] History of Present illness Narrative* Lupillo Moura LPN - 05/28/2024 8:48 AM EST Scan on 05/27/2024 4:25 PM by Bing Salmeron PA-C: Consultation - documented in this encounterLima Memorial Hospital10-29-2024 Telephone encounter Note * Telephone Encounter - Heron Enriquez LPN - 05/21/2024 2:40 PM EDT Pt returned call to office. Notified of results. He verbalized understanding. Pt also mentions he has an appt on May [address] Barron and Jun [address] Blanco. Heron Enriquez LPN [facility]10-29-2024 Miscellaneous Notes* Telephone Encounter - [...] EDT Negative for hepatitis. documented in this encounterLima Memorial Hospital10-29-2024 Telephone encounter Note * Telephone Encounter - Flakita Pastor MA - 05/21/2024 9:21 AM EDT Additional message left for pt to call back. lFakita Pastor MA [facility]10-28-2024 Telephone encounter Note* Telephone Encounter - Lupillo Moura LPN - 05/20/2024 9:51 AM EDT Pt did read My Chart Message. Will close this encounter. Lupillo Moura LPN [facility]10-28-2024 Miscellaneous Notes* Telephone Encounter - [...] 11:25 AM EDT Also sent pt a [facility] with phone numbers. Lupillo Moura LPN * Telephone Encounter - Lupillo Moura LPN - 05/15/2024 1:16 PM EDT Left message for pt to contact office for phone numbers. Dr Chacon [phone] Dr Barron [phone]. Please have pt contact them to schedule [...] he wish to stay in [place] with jackson at [facility]. Or does he prefer to stay with [facility]? I also need to do a hepatitis [...] pt's US ordered by Suzanna mosher at [facility]. Lupillo Moura LPN Scan on 05/14/2024 2:31 PM by Provider, ELIZABETH Smart: Ultrasound documented in this encounterLima Memorial Hospital10-28-2024 Telephone encounter Note * Telephone Encounter - Ganesh White MA - 05/20/2024 9:41 AM EDT Left additional message for patient to contact office. Ganesh White MA [facility]10-28-2024 Telephone encounter Note* Telephone Encounter - Lupillo Moura LPN - 05/20/2024 9:10 AM EDT Left message for pt to contact office. Lupillo Moura LPN [facility]10-28-2024 Telephone encounter Note* Telephone Encounter - Suzanna Dawson PA-C - 05/20/2024 7:53 AM EDT Negative for hepatitis. [facility]10-25-2024 Telephone encounter Note* Telephone Encounter - Lupillo Moura LPN - 05/17/2024 8:53 AM EDT Left additional message for pt to contact office. Lupillo Moura LPN [facility]10-24-2024 Telephone encounter Note* Telephone Encounter - Lupillo Moura LPN - 05/16/2024 11:25 AM EDT Also sent pt a [facility] with phone numbers. Lupillo Moura LPN [facility]10-23-2024 Telephone encounter Note* Telephone Encounter - Lupillo Moura LPN - 05/15/2024 1:16 PM EDT Left message for pt to contact office for phone numbers. Dr Chacon [phone] Dr Barron [phone]. Please have pt contact them to schedule if he does not hear from their offices. All info has been faxed to Dr Chacon and Dr Barron as per below. Lupillo Moura LPN [facility]10-23-[facility] Telephone encounter Note* Telephone Encounter - Suzanna Dawson PA-C - 05/15/2024 12:46 PM EDT Consult placed. Please give patient phone numbers to schedule. [facility]10-23-[facility] Telephone encounter Note* Telephone Encounter [...] September per patient request. Pineda Styles RN [facility]10-23-20[facility] Telephone encounter Note* Telephone Encounter - Lupillo Moura LPN - 05/15/2024 9:18 AM EDT Left message for pt to contact office. 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 We need to get him in with a liver specialist. Does he wish to stay in [place] with jackson at [facility]. Or does he prefer to stay with [facility]? I also need to do a hepatitis panel on him. He had declined hep C screening in past but given this finding, I think we need to check this. Also did he ever see dr. Barron (urology) for his kidney cysts/lesion?? Suzanna Dawson PA-C [facility]10-22-2024 Telephone encounter Note* Telephone Encounter - Lupillo Moura LPN - 05/14/2024 2:45 PM EDT Received results of pt's US ordered by Suzanna mosher at [facility]. Lupillo Moura LPN Scan on 05/14/2024 2:31 PM by Provider, ELIZABETH Smart: Ultrasound [facility]10-21-2024 Telephone encounter Note* Telephone Encounter - Kirsten Marc RN - 05/13/2024 3:14 PM EDT Patient calling with an order related question. Information provided. Kirsten Marc RN [facility]10-21-2024 Miscellaneous Notes* Telephone Encounter - Kirsten Marc RN - 05/13/2024 3:14 PM EDT Patient calling with an order related question. Information provided. Kirsten Marc RN documented in this encounterLima Memorial Hospital10-09-2024 Instructions* Patient Instructions* Suzanna Dawson [...] review all the medicines you take, even xmtd-fug-tdtfbwd medicines. As you get older, the way [...] have certain medical conditions. documented in this encounterLima [facility] Hospital10-09-2024 NoteHNO ID: [id number] Author: SUZANNA DAWSON PA-C Service: ? 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 [...] place - ICD9: V49.89, ICD10: Z78.9 6. 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 16. Alcohol abuse - ICD9: 305.00, ICD10: F10.10 Advised to decrease Avoid binge Suzanna Dawson PA-C I spent a total of 45 minutes on the date of the service which included preparing to see the patient, jlni-bh-fcwo patient care, completing clinical documentation, obtaining and/or reviewing separately obtained history, performing a medically appropriate examination, counseling and educating the pat ient/family/caregiver, and ordering medications, tests, or procedures. documented in this encounterLima [facility] Hospital10-09-2024 Telephone encounter Note * Telephone Encounter - Alexia Waggoner LPN - 05/01/2024 8:29 AM EDT Lisa with Dr. Vargas's office (cardiology) called for recent lipid lab work. Pt has an apt. Pt was identified with name and date of . FAX: [phone]. Done. Aleixa Waggoner LPN [facility]10-09-2024 Miscellaneous Notes* Telephone Encounter - Alexia Waggoner LPN - 05/01/2024 8:29 AM EDT Lisa with Dr. Vargas's office (cardiology) called for recent lipid lab work. Pt has an apt. Pt was identified with name and date of . FAX: [phone]. Done. Alexia Waggoner LPN documented in this encounterLima Memorial Hospital09-25-2024 NoteHNO ID: [id number] Author: GANESH WHITE MA Service: ? Author Type: Thermostat Repairer Type: Progress Notes Filed: 04/17/2024 18:44 Note Text: Scan on 04/15/2024 12:56 PM by ProviderBing PA-C: Consultation - Cardiology Ganesh White [facility]09-25-2024 History of Present illness Narrative* Ganesh White MA - 04/17/2024 6:44 PM EDT Scan on 04/15/2024 12:56 PM by ProviderBing PA-C: Consultation - Cardiology Ganesh White MA documented in this encounterLima Memorial Hospital09-12-2024 NoteHNO ID: [id number] Author: NI SAUCEDA APRN.PONCHO Service: ? Author Type: Nurse Practitioner Type: Progress Notes Filed: 04/04/2024 11:56 Note Text: Chief Complaint Patient presents with: ER F/U HPI Nazario Hutton is a 73 year old male who presents here today for Above Complaints.. Patient presents for ER follow up. Patient seen in [facility] for angioedema. Losartan d/c'd by Dr. 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 (more content not included)...[facility] History of Present illness Narrative* Ni Sauceda APRN.LIGHT RAIL SIG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 - 04/04/2024 11:48 AM EDT Chief Complaint Patient presents with: ER F/U HPI Nazario Hutton is a 73 year old male who presents here today for Above Complaints.. Patient presents for ER follow up. Patient seen in [facility] for angioedema. Losartan d/c'd by Dr. 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 Scheduled ER appt for 04/04/2024. Pineda Styles RN [facility]09-09-2024 Miscellaneous Notes* Telephone Encounter - [...] PCP/team. /Ganesh White MA documented in this encounterLima [facility] Hospital09-09-2024 Telephone encounter Note * Telephone Encounter - Rupal Chinchilla MA - 04/01/2024 2:54 PM EDT Unable to reach patient. Left VM to return call to office. Please read below and advise & assist patient with scheduling ER F/U with PCP team. Rupal Chinchilla MA [facility]09-09-2024 Telephone encounter Note* Telephone Encounter - Ganesh White MA - 04/01/2024 2:28 PM EDT Patient was in ER for allergic reaction. Dr. Beasley message. Advise patient to stop the losartan. Though it is rare it can cause angio edema. Needs f/u in 3-5 days. Please assist patient for follow up with PCP/team. /Ganesh White MA [facility]09-09-2024 NoteHNO ID: [id number] Author: GANESH WHITE MA Service: ? Author Type: Thermostat Repairer Type: Progress Notes Filed: 04/01/2024 14:28 Note Text: Left message for patient to contact office. Ganesh White [facility]09-09-2024 History of Present illness Narrative* Ganesh [...] Medicine Ganesh White MA documented in this encounterLima [facility] Hospital09-09-2024 NoteHNO ID: [id number] Author: VALERIANO BEASLEY MD Service: ? Author Type: Physician Type: Progress Notes Filed: 04/01/2024 13:49 Note Text: Advise patient to stop the losartan. Though it is rare it can cause angio edema. Needs f/u in 3-5 days.[facility]24 NoteHNO ID: [id number] Author: GANESH WHITE MA Service: ? Author Type: Thermostat Repairer Type: Progress Notes Filed: 04/01/2024 13:46 Note Text: Scan on 03/29/2024 4:41 PM by ProviderBing PA-C: Consultation - Emergency Medicine Ganesh White [facility]09-06-2024 NoteHNO ID: [id number] Author: GARDENIA VILLAREAL APRN.PONCHO Service: ? Author [...] agreeable to this and will go to [place] [facility]. Offered ambulance transport-he refused. He appears stable to self-transport. Report sent via ER passport. Gardenia Villareal APRN.[facility]09-[facility] History of Present illness Narrative* Gardenia Villareal APRN.[facility] - 03/29/2024 11:23 AM EDT Nazario Hutton is a 73 year old male who presents with a swollen tongue. Onset- when he awoke today. Denies difficulty breathing. No pain. Is able to swallow but has difficulty-sometimes has to spit saliva out. He is referred to ER for further evaluation and treatment. He is agreeable to this and will go to [place] [facility]. Offered ambulance transport-he refused. He appears stable to self-transport. Report sent via ER passport. Gardenia Vlilareal APRN.LIGHT RAIL SIG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 documented in this encounterLima [facility] Hospital07-17-2024 Telephone encounter Note * Telephone Encounter - Bhavani Turk LPN - 02/07/2024 9:19 AM EDT Please assist pt in scheduling CTA. Please assist in scheduling a follow up with neuro ODALIS after scans. Bhavani Turk LPN [facility]07-17-2024 Miscellaneous Notes* Telephone Encounter - [...] you, Patria Khanna MD documented in this encounterLima Memorial Hospital07-17-2024 Note* Addendum Note - Patria Khanna Jr., MD - 02/07/2024 8:45 AM EDTAddended by: PATRIA KHANNA on: 02/07/2024 08:45 AM Modules accepted: Orders [facility]07-17-2024 Telephone encounter Note* Telephone Encounter - Patria Khanna Jr., MD - 02/07/2024 8:43 AM EDT Please schedule pt with neuro ODALIS JOSE LUIS for follow up. I will also place order for vascular consult now. If no stenosis on CTA we can cancel. Patria Khanna MD [facility]07-16-2024 Telephone encounter Note* Telephone Encounter [...] Pt has viewed some results on his Justinmindhart. Pt has a lot of questions. Answered to the best ofmy knowledge- aware that further testing will help answer some of his questions. Explained to pt that the MRI of the brain, MRA of the brain and the MRA of the carotid all had the same Impression. [facility]07-16-[facility]24 Telephone encounter Note* Telephone Encounter - Bhavani Turk LPN - 02/06/2024 11:12 AM EDT TC to pt with no answer, left VM to return call. Bhavani Turk LPN [facility]07-16-2024 Telephone encounter Note* Telephone Encounter [...] me know. Thank you, Patria Khanna MD [facility]07-16-2024 History of Present illness Narrative* [...] PATIENT PRESENTS WITH AN IMPLANTABLE OR ATTACHED IRRIGATION PUMP INSTALLER: No RADIOLOGY DEPARTMENT: MR; Exam(s) Completed: Head: Routine Brain [place] MRA Neck: Carotids MRA, bilateral PERIPHERAL IV DATA: Not applicable SIGNED BY: RT Brandon(Federico) February 06, 2024 9:30 AM documented in this encounterLima Memorial Hospital07-16-2024 NoteHNO ID: [id number] Author: DARIANA COLLIER RT(R) Service: ? Author [...] PATIENT PRESENTS WITH AN IMPLANTABLE OR ATTACHED IRRIGATION PUMP INSTALLER: No RADIOLOGY DEPARTMENT: MR; Exam(s) Completed: Head: Routine Brain [place] MRA Neck: Carotids MRA, bilateral PERIPHERAL IV DATA: Not applicable SIGNED BY: RT Brandon(R) February 06, 2024 9:30 [facility]07-10-2024 NoteHNO ID: [id number] Author: LUPILLO MOURA LPN Service: ? Author Type: LICENSED NURSE Type: Progress Notes Filed: 01/31/2024 11:34 Note Text: Scan on 01/31/2024 10:24 AM by ProviderBing PA-C: [facility] History of Present illness Narrative* Lupillo Moura LPN - 01/31/2024 11:34 AM EDT Scan on 01/31/2024 10:24 AM by ProviderBing PA-C: Consultation - Cardiology documented in this encounterLima [facility] Hospital06-26-2024 Telephone encounter Note * Telephone Encounter - Laly Bhandari OCCA - 01/17/2024 10:49 AM EDT Multiple attempts by phone and MC message to reach patient regarding abnormal lab results. Letter mailed to patients home address requesting return call to office. YASMEEN Childers [facility]06-26-2024 Miscellaneous Notes* Telephone Encounter - [...] answer brief message to contact a nurse. Animating Touch logon . Ary Waggoner LPN * Telephone Encounter - Bhavani Turk LPN - 01/12/2024 4:07 PM EDT TC to pt with no answer, left VM to return call. Bhavani Turk LPN * Telephone Encounter - Bhavani uTrk LPN - 01/08/2024 4:17 PM EDT Attempted [...] supplement. Patria Khanna MD documented in this encounterLima [facility] Hospital06-25-2024 Telephone encounter Note * Telephone Encounter - Ary Waggoner LPN - 01/16/2024 6:00 PM EDT Phone call placed, no answer brief message to contact a nurse. Animating Touch logon . Ary Waggoner LPN [facility]06-21-2024 Telephone encounter Note* Telephone Encounter - Bhavani Turk LPN - 01/12/2024 4:07 PM EDT TC to pt with no answer, left VM to return call. Bhavani Turk LPN [facility] Telephone encounter Note* Telephone Encounter - Bhavani Turk LPN - 01/08/2024 4:17 PM EDT Attempted to call pt. Unable to reach him due to static on phone lines. Will try again. Bhavani Turk LPN [facility] Telephone encounter Note* Telephone Encounter [...] on B Vitamin supplement. Patria Khanna MD [facility]06-17-2024 Telephone encounter Note* Telephone Encounter [...] Dye LPN January 08, 2024 3:16 PM [facility]06-17-[facility] Miscellaneous Notes* Telephone Encounter - [...] 08, 2024 3:16 PM documented in this encounterLima Memorial Hospital06-10-2024 History of Present illness Narrative* [...] for MRI showing L4-5 disc degeneration R>L ([facility]) and EMG/NCV showing R L5 radic but no evidence of peripheral neuropathy (performed at [facility]). Numbness in hands and feet that [...] trauma. Balance issues started after having an OK couple years ago. No neck pain. Can get pain in the posterior cranium over the javier greater occipital nerves. States everything is kind of random. Denies history of diplopia, vision loss or change inspeech. 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 Patria hKanna MD I spent a total of 56 minutes on the date of the service which included preparing to see the patient, [id number] patient care, completing clinical documentation, obtaining and/or [...] 01/01/2024 3:32 PM EDT documented in this encounterLima Memorial Hospital06-06-2024 Telephone encounter Note * Telephone Encounter - Sean Abbasi RN - 12/28/2023 4:17 PM EDT Patient phoned to ask if Dr. Khanna ordered labs for his appt on Monday. Advised Dr Khanna did not order labs for patient. [facility]06-06-2024 Miscellaneous Notes* Telephone Encounter - Sean Abbasi RN - 12/28/2023 4:17 PM EDT Patient phoned to ask if Dr. Khanna ordered labs for his appt on Monday. Advised Dr Khanna did not order labs for patient. documented in this encounterLima [facility] Hospital05-28-2024 History of Present illness Narrative* Karla Villa LPN - 12/19/2023 1:06 PM EDT Scan on 12/18/2023 11:18 AM by Provider, ELIZABETH Smart: Stress Test Karla Villa LPN documented in this encounterLima Memorial Hospital03-26-2024 Miscellaneous Notes* Telephone Encounter - [...] covered. Carleen Berg LPN documented in this encounterLima Memorial Hospital03-26-2024 Miscellaneous Notes* Telephone Encounter - [...] his appointment please advise documented in this encounterLima Memorial Hospital03-23-2024 History of Present illness Narrative* [...] 14, 2023 9:50 AM documented in this encounterLima [facility] Hospital03-12-2024 Miscellaneous Notes* Telephone Encounter - Carleen Berg LPN - 10/03/2023 11:43 AM EDT Spoke to pt today about another issue. 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 Carleen Berg LPN * Telephone Encounter - Maribel Koenig PSS - 09/01/2023 1:04 PM EST CD READY FOR ORDER CLERK AT [facility] * Telephone Encounter - Abril Del Rosario - 09/01/2023 11:44 AM EST Patient is requesting a copy of MRI (08/10), Cat Scan (08/29), and Ultrasound (this month). documented in this encounterLima Memorial Hospital03-08-2024 History of Present illness Narrative* Lupillo Moura LPN - 09/29/2023 7:53 AM EST Scan on 09/28/2023 11:17 AM by ProviderBing PA-C: Echo Scan on 09/28/2023 11:17 AM by Provider, External, PA-C: Echo documented in this encounterLima Memorial Hospital03-04-2024 Miscellaneous Notes* Telephone Encounter - [...] notify patient. Grisel Hughes documented in this encounterLima Memorial Hospital02-15-2024 History of Present illness Narrative* Lupillo Moura LPN - 09/07/2023 7:33 AM EST Scan on 09/05/2023 5:03 PM by ProviderBing PA-C: Consultation - Cardiology documented in this encounterLima Memorial Hospital02-14-2024 History of Present illness Narrative* Lupillo Moura LPN - 09/06/2023 8:17 AM EST Scan on 09/05/2023 1:01 PM by ProviderBing PA-C: Consultation - Cardiology Scan on 09/05/2023 1:24 PM by Bing Salmeron PA-C: Miscellaneous Lab documented in this encounterLima Memorial Hospital02-12-2024 History of Present illness Narrative* Kelsea Moe LPN - 09/04/2023 3:03 PM EST Scan on 09/02/2023 12:52 PM by ProviderBing PA-C: X-ray documented in this [facility]02-09-2024 History of Present illness Narrative* Lupillo Moura LPN - 09/01/2023 12:21 PM EST Scan on 09/01/2023 11:52 AM by Bing Salmeron PA-C: Consultation - Orthopedics documented in this [facility]02-07-2024 Miscellaneous Notes* Telephone Encounter - Karla [...] or Dr. Savage locally. documented in this encounterLima Memorial Hospital02-05-2024 History of Present illness Narrative* [...] PATIENT PRESENTS WITH AN IMPLANTABLE OR ATTACHED IRRIGATION PUMP INSTALLER: No ALLERGIES: Reviewed and unchanged CONTRAST ALLERGY: [...] 2023 TIME: 3:13 PM documented in this encounterLima Memorial Hospital02-02-2024 History of Present illness Narrative* Kirsten Denny MA - 08/25/2023 10:03 AM EST POPULATION HEALTH NAVIGATION OUTREACH Action/I HM Due: Medicare wellness 2023 (last - 04/20/23). PCP follow up currently scheduled for 10/19/23. Left voice mail for patient to call back. [email or web address] message sent. Patient Identified by Name and : NO Outreach Outcome/Action Unable to reach patient: Left message Justinmindhart message sent Did you use a PCP flex slot to schedule this appointment? N/A Reason for Outreach Care Gap or Scheduling/Wellness visits Payer: Payor: [facility] MEDICARE / Plan: [facility] MEDICARE HMO / Product Type: HMO / Care Gap Reviewed:: Annual Wellness visit Reminder: Reminder note to check Health Maintenance for items below Health Maintenance items due: RSV Vaccine(1 - 1-dose 60+ series) Never done BP Controlled (<130/80) due on 03/15/2022 Advance Directive Discussion due on 07/24/2023 Navigation Signature: Kirsten Denny MA August 25, 2023 10:03 AM documented in this encounterLima [facility] Hospital01-31-2024 Miscellaneous Notes* Telephone Encounter - [...] with and without contrast. documented in this encounterLima Memorial Hospital11-09-2023 History of Present illness Narrative* [...] ELIZABETH: Consultation - Pulmonary documented in this encounterLima Memorial Hospital11-02-2023 Procedure [facility]10-26-2023 Instructions* Patient Instructions* Valeriano Beasley MD - 05/18/2023 10:54 AM EDT Start taking over the counter B12 1000 mcg one a day documented in this encounterLima Memorial Hospital10-26-2023 History of Present illness Narrative* [...] phose, recent GI bleed with Anemia and OK due to stress from the GI bleed. 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 Valeriano Beasley MD documented in this encounterLima Memorial Hospital09-28-2023 History of Present illness Narrative* [...] phose, recent GI bleed with Anemia and OK due to stress from the GI bleed. 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 Atrophy of muscle of right [...] which included preparing to see the patient, oole-vs-aegd patient care, completing clinical documentation, performing a medically appropriate examination, counseling and educating the patient/family/caregiver and ordering medications, tests, or procedures. Valeriano Beasley MD documented in this encounterLima Memorial Hospital09-28-2023 Instructions* Patient Instructions* Valeriano Beasley MD - 04/20/2023 11:42 AM EDT Please bring in copies of your power of state attorney for health care and living will. Consider getting the shingrix vaccine for the prevention of shingles from a local pharmacy Also consider getting a Tdap for tetanus update at the health dept. documented in this encounterLima Memorial Hospital06-16-2023 History of Present illness Narrative* Lupillo Moura LPN - 01/06/2023 7:50 AM EDT Scan on 01/05/2023 2:11 PM by External Provider, ELIZABETH: Consultation - GI documented in this encounterLima Memorial Hospital04-21-2023 Miscellaneous Notes* Telephone Encounter - [...] a mail order 90 day supply to [facility] Patient aware RX will be sent to pharmacy. No need to notify patient. Heidy Carver [facility] documented in this encounterLima Memorial Hospital04-20-2023 Miscellaneous Notes* Telephone Encounter - [...] 11/10/2022 4:03 PM EDT documented in this encounterLima Memorial Hospital03-30-2023 History of Present illness Narrative* Ganesh White MA - 10/20/2022 3:33 PM EDT Scan on 10/20/2022 9:25 AM by External Provider: Consultation - GI Ganesh White MA documented in this encounterLima Memorial Hospital03-23-2023 Miscellaneous Notes* Telephone Encounter - [...] follow up with gastro documented in this encounterLima Memorial Hospital03-22-2023 History of Present illness Narrative* Suzanna Dawson PA-C - 10/12/2022 10:18 AM EDT Chief Complaint Patient presents with: F/U 6 Month HPI Nazario Hutton is a 71 year old male who presents here today for Chronic Medical Conditions.. Patient with hx of anxiety, HTN, hyperlipidemia, CAD, elevated alk phose, recent GI bleed with Anemia and OK due to stress from the GI bleed. 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 Suzanna Dawson PA-C documented in this encounterLima Memorial Hospital02-24-2023 Miscellaneous Notes* Telephone Encounter - Teodoro Dye LPN - 09/16/2022 2:36 PM EST Patient returned call and went over results, notes from Dr Beasley with understanding. Aware lab results were faxed to Plastic Worker office. * Telephone Encounter - Ganesh White [...] walking. 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 Franklin Francois at [place] phone # [phone] documented in this encounterLima Memorial Hospital02-22-2023 History of Present illness Narrative* [...] oz beers a day. Patient presented to [place] ER on 09/02/2022 with c/o bloody diarrhea. 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 Valeriano Beasley MD documented in this encounterLima Memorial Hospital02-17-[address] Hagen [facility] September 09, 2022 9:34pm Note Date/Time September 09, 2022 7:42pm [facility] Medical Records Department [address] [place] [address] Progress Note - Hospitalist 09/09/221940 MR#: [id number] Acct: [id number] Name: NAZARIO HUTTON Rep #:[id number] : 1950 71 From: Rizwana Hagen MD PCP: Dr. Valeriano Beasley MD Status:ADM IN Location: [place] [address] Hospitalist Note Received call about swollen right [...] Cosigner Signature (if applicable): CC: ~ Signed [facility] Work Phone: 1(415) 462-426402-17-2023 Progress note Author Ahmet Chacon [facility] September 09, 2022 7:08pm Note Date/Time September 09, 2022 7:08pm [facility] Medical Records Department [address] [place] [address] Progress Note 09/09/22 0700 MR#: [id number] Acct: [id number] Name: NAZARIO HUTTON Rep #:[id number] : 1950 71 From: Ahmet Chacon DO PCP: Dr. Valeriano Beasley MD Status:ADM IN Location: [place] [address]- 1 Subjective Subjective Patient has not had [...] (Auto) 67.3, Lymph % (Auto) 10.0 L, Glenn % (Auto) 13.8 H, Eos % (Auto) [...] elevated myocardial infarction): PLAN: Non-ST segment elevation OK treated with heparin over the weekend and [...] GI standpoint. Charges/Coding Visit Charges Inpatient E&M: 92245 Subs Hosp L3 09/09/221907 <Electronically signed by Ahmet Chacon DO> Ahmet Chacon DO Cosigner Signature (if applicable): CC: ~ Signed [facility] Work Phone: 1(869) 842-669402-17-[address] Crespo [facility] February 18th, 2023 1:28pm Note Date/Time September 09, 2022 2:54pm [facility] Medical Records Department [address] [place] [address] Discharge Summary 09/09/22 1446 MR#: [id number] Acct: [id number] Name: NAZARIO HUTTON Rep #:[id number] : 1950 71 From: Obdulio goyal MD PCP: Dr. Valeriano Beasley MD Status:ADM [facility] Prov[facility] Date of Admission: 09/02/22 Primary Care Physician: Dr. Valeriano Beasley MD Consultations 09/02/22 16:11 Consult: Gastroenterology Routine Consulting Provider: [facility] Reason for Consult: GI bleed, ABLA, [...] of note, Gout who presents to the [facility] ED on 09/02/22 with history of [...] as IV cipro and IV flagyl. From [facility] last noted baseline labs 04/14/22 14.4, 44.2, macrocytic, 04/14/22 BUN/Cr 10/0.68. Hospital Course: 1. Rectal bleeding with acute on chronic anemia and hypotension/non-STEMI type II with a history of CAD status post stent/HTN/HLD?71[facility]. He initially had an [...] doing. Because of his non-STEMI at at [facility]'s insistence he was started on a [...] (Auto) 67.3, Lymph % (Auto) 10.0 L, Glenn % (Auto) 13.8 H, Eos % (Auto) [...] Instructions: Resume on 10/01/22. Hold until your PCP/Plastic Worker decide to restart Label Comments: TAKE 1 [...] Self Care Charges/Coding Visit Charges Inpatient E&M: 73865 Disch Hosp >30min 09/09/22 4384 <Electronically signed by Obdulio Crespo MD> Cosigner [...] going home today. Visit Charges Inpatient E&M: 83640 Disch Hosp >30min 09/10/22 1328<Electronically signed by Obdulio Crespo MD> Cosigner Signature (if applicable): cc: Dr. Valeriano Beasley MD; Dr. Obdulio Crespo MD ~* Signed [facility] Work Phone: 1(840) 895-854202-17-[address] Crespo [facility] September 09, 2022 9:46am Note Date/Time September 09, 2022 9:42am [facility] Medical Records Department [address] [place] [address] Instructions for Home/Discharge Instructions 09/09/22 0941 MR#: [id number] Acct: [id number] Name: NAZARIO HUTTON Rep #:[id number] : 1950 71 From: Obdulio goyal MD [...] Instructions: Resume on 10/01/22. Hold until your PCP/Plastic Worker decide to restart Label Comments: TAKE 1 [...] Self Care 09/09/22 0946<Electronically signed by Obdulio Crespo MD>Obdulio Crespo MD CC: Dr. Jale Ramos MD; Dr. Lukas Cuevas MD; Dr. Valeriano Beasley MD; Dr. Melissa Corbin MD ~ Signed [facility] Work Phone: 1(762) 284-944202-16-2023 Progress note Author Ahmet Chacon [facility] September 08, 2022 6:54pm Note Date/Time September 08, 2022 6:54pm [facility] Medical Records Department [address] [place] [address] Progress Note 09/08/22 1853 MR#: [id number] Acct: [id number] Name: NAZARIO HUTTON Rep #:[id number] : 1950 71 From: Ahmet Chacon DO PCP: Dr. Valeriano Beasley MD Status:ADM IN Location: [place] [address] Subjective Subjective Patient says that he still feels fatigued and weak. I explained to him that he did have a non-ST segment elevation OK secondary to demand ischemia from acute blood [...] (Auto) 65.0, Lymph % (Auto) 10.4 L, Glenn % (Auto) 15.3 H, Eos % (Auto) [...] elevated myocardial infarction): PLAN: Non-ST segment elevation OK treated with heparin over the weekend and [...] GI standpoint. Charges/Coding Visit Charges Inpatient E&M: 95262 Subs Hosp L3 09/08/22 185 <Electronically signed by Ahmet Chacon DO> Ahmet Chacon DO Coschucker Signature (if applicable): CC: ~ Signed [facility] Work Phone: [phone]) 903-279002-16-[address] Crespo [facility] September 08, 2022 4:14pm Note Date/Time September 08, 2022 4:14pm [facility] Medical Records Department [address] [place] [address] Progress Note - Hospitalist 09/08/22 1613 MR#: [id number] Acct: [id number] Name: NAZARIO HUTTON Rep #:[id number] : 1950 71 From: Obdulio goyal MD PCP: Dr. Valeriano Beasley MD Status:ADM IN Location: [place] [address] Reason for Visit Reason for Visit: Diagnoses [...] (Auto) 65.0, Lymph % (Auto) 10.4 L, Glenn % (Auto) 15.3 H, Eos % (Auto) [...] mild segmental systolic dysfunction. Records requested from [facility] * Appreciate cardiology's assistance, will restart Plavix by itself in about a week #Acute alcohol withdrawal * patient has a history of heavy alcohol use, and drinks 4-6 drinks daily. * alcohol withdrawal protocol with ativan. * on folic acid, thiamine and multivitamin. DVT: SCDs Charges/Coding Visit Charges Inpatient E&M: 32165 Subs Hosp L2 09/08/22 1614 <Electronically signed by Obdulio Crespo MD> Cosigner Signature (if applicable): CC: ~ Signed [facility] Work Phone: 1([phone]) 459-903202-15-2023 Progress note Author Ahmet Friend [facility] September 07, 2022 7:30pm Note Date/Time September 07, 2022 7:30pm [facility] Medical Records Department [address] [place] [address] Progress Note 09/07/221928 MR#: [id number] Acct: [id number] Name: NAZARIO HUTTON Rep #:[id number] : 1950 71 From: Ahmet Friend PCP: Dr. Valeriano Beasley MD Status:ADM IN Location: [place] [id number]- [id number] Subjective Subjective Patient did have a [...] (Auto) 69.9, Lymph % (Auto) 8.5 L, Glenn % (Auto) 11.9 H, Eos % (Auto) [...] elevated myocardial infarction): PLAN: Non-ST segment elevation [place] treated with heparin over the weekend and [...] GI standpoint. Charges/Coding Visit Charges Inpatient E&M: 18596 Subs Hosp L3 09/07/221929 <Electronically signed by Ahmet Chacon DO> Ahmet Chacon DO Cosigner Signature (if applicable): CC: ~ Signed [facility] Work Phone: [phone]) 995-360202-15-[address] Crespo [facility] September 07, 2022 12:54pm Note Date/Time September 07, 2022 12:54pm [facility] Medical Records Department [address] [place] [address] Progress Note - Hospitalist 09/07/22 1251 MR#: [id number] Acct: [id number] Name: NAZARIO HUTTON Rep #:[id number] : 1950 71 From: Obdulio goyal MD PCP: Dr. Valeriano Beasley MD Status:ADM IN Location: [place] [address] Reason for Visit Reason for Visit: Diagnoses [...] (Auto) 69.9, Lymph % (Auto) 8.5 L, Glenn % (Auto) 11.9 H, Eos % (Auto) [...] mild segmental systolic dysfunction. Records requested from [facility] * Appreciate cardiology's assistance, will restart Plavix by itself in about a week #Acute alcohol withdrawal * patient has a history of heavy alcohol use, and drinks 4-6 drinks daily. * alcohol withdrawal protocol with ativan. * on folic acid, thiamine and multivitamin. DVT: SCDs Charges/Coding Visit Charges Inpatient E&M: 28839 Subs Hosp L2 09/07/22 1254 <Electronically signed by Obdulio Crespo MD> Cosigner Signature (if applicable): CC: ~ Signed [facility] Work Phone: 1([phone]) 929-872402-15-[address] Cuevas [facility] September 07, 2022 8:04am Note Date/Time September 07, 2022 8:03am [facility] Medical Records Department [address] [place] [address] Progress Note - Cardiology 09/07/22 0800 MR#: [id number] Acct: [id number] Name: NAZARIO HUTTON Rep #:[id number] : 1950 71 From: Lukas Cuevas MD PCP: Dr. Valeriano Beasley MD Status:ADM IN Location: [facility] PHQ490- 1 Subjective Subjective Patient seen and evaluated. [...] (Auto) 69.9, Lymph % (Auto) 8.5 L, Glenn % (Auto) 11.9 H, Eos % (Auto) [...] (Auto) 69.9, Lymph % (Auto) 8.5 L, Glenn % (Auto) 11.9 H, Eos % (Auto) [...] Cosigner Signature (if applicable): CC: ~ Signed [facility] Work Phone: [phone]) 286-666702-14-2023 Progress note Author hAmet Friend [facility] September 06, 2022 7:35pm Note Date/Time September 06, 2022 7:35pm [facility] Medical Records Department [address] [place] [address] Progress Note 09/06/221932 MR#: [id number] Acct: [id number] Name: NAZARIO HUTTON Rep #:[id number] : 1950 71 From: Ahmet Friend DO PCP: Dr. Valeriano Beasley MD Status:ADM IN Location: [facility] [id number]- 1 Subjective Subjective Patient underwent cardiac catheterization [...] % (Auto) 69.2, Lymph % (Auto) 10.6L, Glenn % (Auto) 10.7 H, Eos % (Auto) [...] elevated myocardial infarction): PLAN: Non-ST segment elevation [place] treated with heparin over the weekend and [...] discharged tomorrow. Charges/Coding Visit Charges Inpatient E&M: 32668 Subs Hosp L3 09/06/221934 <Electronically signed by Ahmet Friend DO> Ahmet Friend DO Cosigner Signature (if applicable): CC: ~ Signed [facility] Work Phone: [phone]) 603-847902-14-[address] Cuevas [facility] September 06, 2022 5:44pm Note Date/Time September 04, 2022 6:46pm [facility] Medical Records Department [address] [place] [address] Progress Note - Cardiology 09/04/22 1845 MR#: [id number] Acct: [id number] Name: NAZARIO HUTTON Rep #:[id number] : 1950 71 From: Lukas Cuevas MD PCP: Dr. Valeriano Beasley MD Status:ADM IN Location: [place] [address] Subjective Subjective Patient seen and evaluated. Events [...] 70.3 H, Lymph % (Auto) 12.1 L, Glenn % (Auto) 11.5 H, Eos % (Auto) [...] 70.3 H, Lymph % (Auto) 12.1 L, Glenn % (Auto) 11.5 H, Eos % (Auto) [...] Cosigner Signature (if applicable): CC: ~ Signed [facility] Work Phone: [phone]) 233-836202-14-[address] Crespo [facility] September 06, 2022 5:01pm Note Date/Time September 06, 2022 5:01pm [facility] Medical Records Department [address] [place] [address] Progress Note - Hospitalist 09/06/22 1656 MR#: [id number] Acct: [id number] Name: NAZARIO HUTTON Rep #:[id number] : 1950 71 From: Obdulio goyal MD PCP: Dr. Valeriano Beasley MD Status:ADM IN Location: [place] [address] Reason for Visit Reason for Visit: Diagnoses [...] % (Auto) 69.2, Lymph % (Auto) 10.6L, Glenn % (Auto) 10.7 H, Eos % (Auto) [...] mild segmental systolic dysfunction. Records requested from [facility] * cardiology on board #Acute alcohol withdrawal * patient has a history of heavy alcohol use, and drinks 4-6 drinks daily. * alcohol withdrawal protocol with ativan. * on folic acid, thiamine and multivite. DVT: SCDs Charges/Coding Visit Charges Inpatient E&M: 23099 Subs Hosp L2 09/06/22 1701 <Electronically signed by Obdulio Crespo MD> Cosigner Signature (if applicable): CC: ~ Signed [facility] Work Phone: [phone]) 269-168402-14-[address] Cuevas [facility] September 06, 2022 8:50am Note Date/Time September 06, 2022 8:50am [facility] Medical Records Department [address] [place] [address] Progress Note - Cardiology 09/06/22 0847 MR#: [id number] Acct: [id number] Name: NAZARIO HUTTON Rep #:[id number] : 1950 71 From: Lukas Cuevas MD PCP: Dr. Valeriano Beasley MD Status:ADM IN Location: [place] [address] Subjective Subjective Patient seen and evaluated. Patient [...] % (Auto) 69.2, Lymph % (Auto) 10.6L, Glenn % (Auto) 10.7 H, Eos % (Auto) [...] (Auto) 69.2, Lymph % (Auto) 10.6 L, Glenn % (Auto) 10.7 H, Eos % (Auto) [...] to call if any issues arise. 09/06/22 9257 <Electronically signed by Lukas Cuevas MD> Cosigner Signature (if applicable): CC: ~ Signed [facility] Work Phone: [phone]) [phone] Progress note Author Ahmet Friend [facility] September 05, 2022 5:31pm Note Date/Time September 05, 2022 5:23pm [facility] Medical Records Department [address] [place] [address] Progress Note 09/05/22 1722 MR#: [id number] Acct: [id number] Name: NAZARIO HUTTON Rep #:[id number] : 1950 71 From: Ahmet Chacon DO PCP: Dr. Valeriano Beasley MD Status:ADM IN Location: [address] 1 Subjective Subjective Patient underwent to [...] elevated myocardial infarction): PLAN: Non-ST segment elevation [place] treated with heparin over the weekend and [...] liquid diet. Charges/Coding Visit Charges Inpatient E&M: 17117 Subs Hosp L3 09/05/22 6566 <Electronically signed by Ahmet Friend DO> Ahmet Friend DO Cosigner Signature (if applicable): CC: ~ Signed [facility] Work Phone: [phone]) [phone] Crespo [facility] September 05, 2022 4:23pm Note Date/Time September 05, 2022 4:23pm [facility] Medical Records Department [address] [place] [address] Progress Note - Hospitalist 09/05/22 1618 MR#: [id number] Acct: [id number] Name: NAZARIO HUTTON Rep #:[id number] : 1950 71 From: Obdulio goyal MD PCP: Dr. Valeriano Beasley MD Status:ADM IN Location: [place] [address] Reason for Visit Reason for Visit: Diagnoses [...] mild segmental systolic dysfunction. Records requested from [facility] * cardiology on board #Acute alcohol withdrawal * patient has a history of heavy alcohol use, and drinks 4-6 drinks daily. * alcohol withdrawal protocol with ativan. * on folic acid, thiamine and multivite. DVT: SCDs Charges/Coding Visit Charges Inpatient E&M: 77614 Subs Hosp L2 09/05/22 0633 <Electronically signed by Obdulio Crespo MD> Cosigner Signature (if applicable): CC: ~ Signed [facility] Work Phone: [phone] History of Present illness Narrative* Ganesh White MA - 09/05/2022 2:31 PM EST Scan on 09/04/2022 5:29 PM by External Provider: EGD Scan on 09/04/2022 5:41 PM by External Provider: Colonoscopy Scan on 09/04/2022 5:42 PM by External Provider: Colonoscopy Please review. Ganesh White [facility] History of Present illness Narrative* Ganesh White MA - 09/05/2022 2:29 PM EST Scan on 09/04/2022 9:46 AM by External Provider: Consultation - Emergency Medicine Ganesh White MA [facility] History of Past illness Narrative* [...] of this encounter (statuses as of 04/21/2023) [facility] of Past illness Narrative* [...] of this encounter (statuses as of 05/19/2023) [facility] of Past illness Narrative* [...] of this encounter (statuses as of 06/01/2023) [facility] of Past illness Narrative* [...] of this encounter (statuses as of 08/25/2023) [facility] of Past illness Narrative* [...] of this encounter (statuses as of 08/25/2023) [facility] illness Narrative* [...] of this encounter (statuses as of 08/29/2023) [facility] of Past illness Narrative* [...] of this encounter (statuses as of 09/01/2023) [facility] illness Narrative* [...] of this encounter (statuses as of 09/04/2023) [facility] illness Narrative* [...] of this encounter (statuses as of 09/06/2023) [facility] Narrative* [...] of this encounter (statuses as of 09/07/2023) [facility] illness Narrative* [...] of this encounter (statuses as of 09/26/2023) [facility] Past illness Narrative* [...] of this encounter (statuses as of 09/29/2023) [facility] Past illness Narrative* [...] of this encounter (statuses as of 10/04/2023) [facility] Narrative* [...] of this encounter (statuses as of 10/14/2023) [facility] Narrative* [...] of this encounter (statuses as of 10/17/2023) [facility] illness Narrative* [...] of this encounter (statuses as of 10/17/2023) [facility] Past illness Narrative* [...] of this encounter (statuses as of 10/17/2023) [facility] Cuevas [facility] September 05, 2022 7:07am Note Date/Time September 05, 2022 7:07am [facility] Medical Records Department [address] [facility] [place] [address] Progress Note - Cardiology 09/05/22705 MR#: [id number] Acct: [id number] Name: NAZARIO HUTTON Rep #:[id number] : 1950 71 From: Lukas Cuevas MD PCP: Dr. Valeriano Beasley MD Status:ADM IN Location: [place] [address]- Subjective Subjective Patient seen and evaluated. Appears [...] 70.3 H, Lymph % (Auto) 12.1 L, Glenn % (Auto) 11.5 H, Eos % (Auto) [...] 70.3 H, Lymph % (Auto) 12.1 L, Glenn % (Auto) 11.5 H, Eos % (Auto) [...] Cosigner Signature (if applicable): CC: ~ Signed [facility] Work Phone: [phone] 785-100502-12-[address] Corbin [facility] September 04, 2022 4:15pm Note Date/Time September 04, 2022 2:24pm [facility] Medical Records Department [address] [place] [address] Progress Note - Hospitalist 09/04/22 1419 MR#: [id number] Acct: [id number] Name: NAZARIO HUTTON Rep #:[id number] : 1950 71 From: Melissa Corbin MD PCP: Dr. Valeriano Beasley MD Status:ADM IN Location: [place] [address] Reason for Visit Reason for Visit: Diagnoses [...] 78.2 H, Lymph % (Auto) 9.1 L, Glenn % (Auto) 9.7, Eos % (Auto) 2.2, [...] 70.3 H, Lymph % (Auto) 12.1 L, Glenn % (Auto) 11.5 H, Eos % (Auto) [...] mild segmental systolic dysfunction. Records requested from [facility] * cardiology on board * for cardiac [...] prophylaxis; SCDs. Charges/Coding Visit Charges Inpatient E&M: 35874 [facility] Hosp L3 09/04/22 1615 <Electronically signed by Melissa Corbin MD> Cosigner Signature (if applicable): CC: ~ Signed [facility] Work Phone: [phone] 529-641702-12-[address] Corbin [facility] September 04, 2022 4:14pm Note Date/Time September 03, 2022 3:04pm [facility] Medical Records Department [address] [place] [address] Progress Note - Hospitalist 09/03/22 1500 MR#: [id number] Acct: [id number] Name: NAZARIO HUTTON Rep #:[id number] : 1950 71 From: Melissa Corbin MD PCP: Dr. Valeriano Beasley MD Status:ADM IN Location: [place] [address]- 1 Reason for Visit Reason for Visit: [...] H, RDW Coeff of Dorie 13.4, Plt [id number], MPV 10.7, Immature Gran % (Auto) 0.600, Neut % (Auto) 74.7 H, Lymph % (Auto) 11.7 L, Glenn % (Auto) 11.1 H, Eos % (Auto) 1.6, Baso % (Auto) 0.3, Absolute Neuts (auto) 7.2, Absolute Lymphs (auto) 1.13, Nucleated RBC % 0.2 09/03/22 07:10: Sodium 142, Potassium 3.6, Chloride 112 H, Carbon Dioxide 24.0, Anion Gap 6, BUN 14, Creatinine 0.86, Estim Creat Clear Calc 81.35, Est GFR (MDRD) Af Amer 112, Est GFR (MDRD) Non-Af 93, BUN/Creatinine Ratio 16.2, Waqblna64, Calcium 8.0 L, Total Bilirubin 0.70, AST [...] segmental systolic dysfunction. Will request records from [facility] * cycle troponins * consult cardiology. * [...] prophylaxis; SCDs. Charges/Coding Visit Charges Inpatient E&M: 79442 Subs Hosp L3 09/04/22 1614 <Electronically signed by Melissa Corbin MD> Cosigner Signature (if applicable): CC: ~ Signed [facility] Work Phone: [phone]) 787-266702-12-2023 Procedure [facility] 09-04-2022 Procedure [facility]02-12-2023 Procedure note [facility]23 Procedure [facility] 09-04-2022 Progress note Author Ahmet Chacon [facility] September 04, 2022 10:36am Note Date/Time September 04, 2022 10:36am [facility] Medical Records Department [address] [place] [address] Progress Note 09/04/22 1033 MR#: [id number] Acct: [id number] Name: NAZARIO HUTTON Rep #:[id number] : 1950 71 From: Ahmet Chacon DO PCP: Dr. Valeriano Beasley MD Status:ADM IN Location: [place] [address] Subjective Subjective Patient underwent a colonoscopy for [...] 78.2 H, Lymph % (Auto) 9.1 L, Glenn % (Auto) 9.7, Eos % (Auto) 2.2, [...] and followhemoglobin. Charges/Coding Visit Charges Inpatient E&M: 88663 Subs Hosp L2 09/04/22 1036 <Electronically signed by Ahmet Chacon DO> Ahmet Chacon DO Cosigner Signature (if applicable): CC: ~ Signed [facility] Work Phone: [phone] 208-651102-12-[address] Cuevas [facility] September 04, 2022 9:39am Note Date/Time September 04, 2022 9:35am [facility] Medical Records Department [address] [place] [address] Consultation - Cardiology 09/04/22 0930 MR#: [id number] Acct: [id number] Name: NAZARIO HUTTON Rep #:[id number] : 1950 71 From: Lukas Cuevas MD PCP: Dr. Valeriano Beasley MD Status:ADM IN Location: [place] [address] Assessment & Plan Assessment/Plan (1) NSTEMI (non-ST [...] infarction in November 2021 was taken to [facility] and underwent stenting of one vessel. He [...] rhythm with a left bundle branch block. [facility] Medical History Anxiety Atherosclerotic heart disease of citizen [place] coronary artery without angina pectoris Chest pain Coronary artery disease Depression Hyperlipidemia Hypertension Myocardial infarct ST elevation [place] (STEMI) (~11/29/21) Home Medications allopurinol 100 mg [...] disease Hypertension Myocardial infarction age 53 following [place]. Surgical History Presence of coronary angioplasty implant [...] 78.2 H, Lymph % (Auto) 9.1 L, Glenn % (Auto) 9.7, Eos % (Auto) 2.2, [...] 78.2 H, Lymph % (Auto) 9.1 L, Glenn % (Auto) 9.7, Eos % (Auto) 2.2, [...] Cuevas MD; Dr. Valeriano Beasley MD~ Signed [facility] Work Phone: 1([phone]) 584-235502-11-2023 Procedure [facility] 09-03-2022 Procedure [facility]02-10-2023 History and physical note Author Dr. Ramos [facility] September 02, 2022 6:26pm Note Date/Time September 02, 2022 2:53pm [facility] Medical Records Department [address] [place] [address] H&P Exam - Hospitalist 09/02/22 1434 MR#: [id number] Acct: [id number] Name: NAZARIO HUTTON Rep #:[id number] : 1950 71 From: Jael Ramos MD PCP: Dr. Valeriano Beasley MD Status:ADM IN [place] [facility] [id number] HPI - General General Date of Admission: 09/02/22 Date of Service: 09/02/22 Chief Complaint: Lightheadedness, dizziness, bloody diarrhea. HPI Narrative The patient is a 71 y/o M w/ PMHx: EtOH abuse (6 pack beer daily x 1 yr since passing of his ) with concurrent untreated Depression, HTN, HLD, CAD s/p PCIx 3 12/2021 of note, Gout who presents to the [facility] ED on 09/02/22 with history of [...] as IV cipro and IV flagyl. From [facility] last noted baseline labs 04/14/22 14.4, 44.2, macrocytic, 04/14/22 BUN/Cr 10/0.68. [facility] Medical History Anxiety Atherosclerotic heart disease of citizen [place] coronary artery without angina pectoris Chest pain Coronary artery disease Depression Hyperlipidemia Hypertension Myocardial infarct ST elevation [place] (STEMI) (~11/29/21) Home Medications allopurinol 100 mg [...] disease Hypertension Myocardial infarction age 53 following [place]. Surgical History (Updated 09/02/22 @ 18:21 by [...] 86.3 H, Lymph % (Auto) 4.3 L, Glenn % (Auto) 8.6, Eos % (Auto) 0.0, [...] of note, Gout who presents to the [facility] ED on 09/02/22 with history of [...] 76 minutes. Charges/Coding Visit Charges Inpatient E&M: 48661 Init Hosp L3 Procedures Hospitalists Procedures: 29996 Advncd Care Plan 30 Min 09/02/22 1826 <Electronically signed by Jael Ramos MD> Cosigner Signature (if applicable): CC: Dr. Jael Ramos MD; Dr. Valeriano Beasley MD~ Signed [facility] Work Phone: [phone]) 777-469802-10-2023 Consult note Author Ahmetkristyn Chacon [facility] September 02, 2022 5:20pm Note Date/Time September 02, 2022 5:20pm [facility] Medical Records Department [address] [place] [address] Consultation - GI 09/02/22 1716 MR#: [id number] Acct: [id number] Name: NAZARIO HUTTON Rep #:[id number] : 1950 71 From: Ahmet Chacon DO PCP: Dr. Valeriano Beasley MD Status:ADM IN [place] [facility] JD790-2 HPI Consult Data Date of Consult: 09/02/22 [...] pain, swelling or discoloration.? He denies vomiting. [facility] Medical History (Updated 09/02/22 @ 15:42 by Jeanette Romero) Anxiety Atherosclerotic heart disease of [place] coronary artery without angina pectoris Chest pain Coronary artery disease Depression Hyperlipidemia Hypertension Myocardial infarct ST elevation [place] (STEMI) (~11/29/21) Home Medications allopurinol 100 mg [...] 86.3 H, Lymph % (Auto) 4.3 L, Glenn % (Auto) 8.6, Eos % (Auto) 0.0, [...] of 3. Charges/Coding Visit Charges Inpatient E&M: 63529 Init Hosp L2 09/02/22 1720 <Electronically signed by Ahmet Friend DO> Cosigner Signature (if applicable): CC: Dr. Valeriano Beasley MD~ Signed [facility] Work Phone: 1([phone]) 951-790002-10-[address] Holguin [facility] September 02, 2022 2:40pm Note Date/Time September 02, 2022 12:26pm [facility] Medical Records Department [address] [place] [address] Emergency Department Summary 09/02/22 MR#: [id number] Acct: [id number] Name: NAZARIO HUTTON Rep #:[id number] : 1950 71 From: Marino Holguin MD [...] Prior similar symptoms: No Recent Illness/Hospitalization: No [facility] Medical History Atherosclerotic heart disease of citizen [place] coronary artery without angina pectoris Coronary artery disease Hyperlipidemia Hypertension ST elevation [place] (STEMI) (~11/29/21) Home Medications amlodipine 5 mg [...] PO DAILY 03/25/22 [History Last Taken Unknown] [id number] oil-omega 3-vit E 50 mg-550 mg-300 mg-30 [...] Stool was obtained for enteric pathogens. Using testhub to compare laboratory results. Patient's had a [...] Ramos. She will admit patient to [facility], full admission. She will contact [...] 86.3 H Lymph % (Auto) 4.3 L Glenn % (Auto) 8.6 Eos % (Auto) 0.0 [...] of hypertension Disposition Disposition: Acute Care Hospital [facility] What to do if you have Problems For any increased pain, shortness of breath, bleeding, nausea or vomiting, chestpain, or any unexpected problems, contact your Primary Care Provider. Call [facility] ([phone]) or report to the closest Emergency Room. Call 911 if necessary. 09/02/22 1440 <Electronically signed by Marino Holguin MD> Cosigner Signature (if applicable): CC: Dr. Valeriano Beasley MD ~ Signed [facility] Work Phone: 1(714) 423-616709-26-2022 Instructions* Patient Instructions* Valeriano Beasley MD - 04/18/2022 3:14 PM EDT Consider getting the shingrix vaccine for the prevention of shingles from a local pharmacy Please get labs done on or after 10/07/2022 prior to your next visit. 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 Valeriano Beasley MD documented [facility] Miscellaneous Notes* Telephone Encounter - Zenobia Monroy - 04/12/2022 10:56 AM EDT Patient is wanting to have labs placed prior to seeing Dr. Beasley. Please advise patient via mychart when labs are placed or if he needs to wait until after the appointment. Thank you, Zenobia Monroy documented in this encounterL[facility] Hospital Discharge instructions Patient Education [...] Document Reviewed: 07/11/2014 ExitCare Patient Information 2015 CareParent. This information is not intended to replace [...] until you are awake and alert. Take omyr-pla-jhctzvv and prescription medicines only as told by [...] 04/30/2014 Document Revised: 06/22/2018 Document Reviewed: 10/29/2016 BigSwerve Patient Education 2020 Fitcline. Follow Up Care 01/17/2022 13:12:32 With:Cardiac Rehabilitation Address: [facility] [place] [address] [place] [id number]- When: Unknown Comments:Cardiac Rehab will call you for an appointment in 1-2 weeks.Information given. Please call us with any questions. [phone] With:VALERIANO BEASLEY Address: [address] [place] [address]- [facility] (1) When: Unknown With:FRANKLIN VAUGHN MD Address: [address] [facility] [address] [facility] [place] [address]- When:03/11/2022 13:30:00 [facility] 07-07-2022 Summary of episode note Discharge Instructions Thank you for allowing [facility] to assist you with your healthcare needs. The following is importantdischarge information regarding your hospital visit. Your Care Team VALERIANO BEASLEY MD What to do next Scheduled Follow-Up Appointments Appointment Type When Where Contact InformationCV OV Hospital Follow Up 03/11/2022 01:30 PM EDT [facility] Follow Up Appointments Follow Up with FRANKLIN VAUGHN MD When 03/11/2022 01:30 PM EDT Where: [address] [facility] [address] [place] [address]- Follow Up with Cardiac Rehabilitation When Why: Cardiac Rehab will call you for an appointment in 1-2 weeks.Information given. Please call us with any questions. [phone] Where: [address] [place] [address]- Follow Up with VALERIANO BEASLEY When In 0 days Where: [address] [place] [address]- Business (1) The Following Activity and Diet [...] Document Reviewed: 07/11/2014 ExitCare Patient Information 2015 CareParent. This information is not intended to replace [...] until you are awake and alert. Take nonv-ndk-thhygvy and prescription medicines only as told by [...] 04/30/2014 Document Revised: 06/22/2018 Document Reviewed: 10/29/2016 [employer] Patient Education 2020 [employer]. Additional Information VACCINATE! IT SAVES LIVES! Members of the community who have not yet received the COVID-19 vaccine and would like to receive it can visit one of [facility] vaccine clinics. There are many vaccine clinic locations within the [facility]. For locations and available times, please visit [email or web address] It is important to note that some COVID mobile vaccine clinics are held outdoors and may be canceled in rainy or stormy conditions. To learn more about pediatric vaccinations (ages 5-11), we invite you to visit the [facility] webpage. [email or web address] [email or web address] learn more about the COVID-19 vaccine, we invite you to visit the [facility] website for a list of frequently asked questions. [email or web address] [facility] Patient Portal Access Instructions: Stay connected with your healthcare team and access your personal medical information anytime with the [facility] Patient Portal.If you would like a full copy of your medical records, please contact the [facility] Medical Records Department, Monday through Monday between 8a.m. and 4:30p.m. Please follow the directions below to access the portal: 1.Access the email account you provided upon registration to the hospital.2.Look for an invitation email from [facility].3.Open the email and access the invitation link: Accept Invitation to [facility]4.Fill in the required shaikh to create your account. Sign into www.[employer] with your username and password that you [...] you will allow to register on the [employer] Patient Portal for access to your information. You can also access the [employer] Patient Portal on the [employer]. Simply click on Health Records under [employer] and then click on the [employer] logo. HOW TO SAFELY DISPOSE OF PRESCRIPTION [...] Call your local pharmacy or go to [email or web address] to find one close to you.3.Make use of household items: Use cat litter or old coffee grounds to dispose medications if other options arenot available. Mix your drugs with these household products, seal them in an airtight container andthrow it into the garbage. Call [facility]: [phone] to be sure your drugs can be [...] aware that I should contact my doctor. 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 * Telephone Encounter - Ganesh White MA - 12/02/2021 4:59 PM EDT Contacted [facility] requested hospital documentation. Ganesh White MA * Telephone Encounter - Nara Yates RN - 12/02/2021 4:18 PM EDT Patient returned call. He was sent by squad to [facility] from work then to [facility] on Wednesday 11/29. On arrival to [facility] he went directly to stores laborer for stent to RCA. Hewas discharged home on 12/01. He has an appointment with a boomswing operator in [place] on 12/28. He was discharged on Brilinta [...] Cardiology? Ganesh White MA' documented in this encounterLima [facility]05-[facility]22 Hospital Discharge instructions Patient Education 12/01/2021 12:31:14 Hypertension, Adult, Odas-fd-Hqzf Hypertension, Adult Hypertension is another name for [...] your doctor. This is important. Medicines Take ufzc-cpg-tbxjosc and prescription medicines only as told by [...] 12/26/2008 Document Revised: 03/20/2019 Document Reviewed: 03/20/2019 BigSwerve Patient Education 2020 Fitcline. 12/01/2021 12:31:01 Heart Attack, Ulkm-xt-Zvor Heart Attack A heart attack occurs when blood and oxygen supply to the heart is cut off. A heart attack causes damage to the heart that cannot be fixed. A heart attack is also called a myocardial infarction, or OK. If you think you are having a [...] Follow these instructions at home: Medicines Take niqo-dlg-wobnldb and prescription medicines only as told by [...] Document Reviewed: 10/21/2019 Elsevier Patient Education 2020 Fitcline. 12/01/2021 12:30:46 Atrial Fibrillation, Clwj-oe-Xrvm Atrial Fibrillation Atrial fibrillation is a condition [...] Document Reviewed: 08/20/2013 ExitCare Patient Information 2015 [employer] [facility]. This information is not intended to replace advicegiven to you by your health care provider. Make sure you discuss any questions you have with your health care provider. Follow Up Care 11/29/2021 15:20:14 With:TESSA GUZMAN MD, Thoracic Service, Vascular Service Address: [address] [place] [address] [address] [facility] [place] [address]- [phone] When:12/28/2021 15:00:00 With:CHRISTINE EDWARDS MD Address: [address] [facility] [address] [facility] [place] [address]- [phone] When:12/28/2021 11:30:00 Comments:THIS APPOINTMENT WILL BE WITH PONCHO BYRNE With:Cardiac Rehabilitation Address: [address] [place] [address]- When: Unknown Comments:Cardiac Rehab will call you for an appointment in 1-2 weeks.Information given. Please call us with any questions. [phone] With:VALERIANO BEASLEY Address: [address] [place] [address]- Business (1) When:1-2 days [facility] 05-09-2022 Evaluation + Plan noteExtracted from: [...] down the stairs to evaluate patient in Liquor Runner for future outpatient bypass after this initial [...] of this technology. Dr. Lisa Reeves Interventional Mud Analysis Operator, PGY 7 Pager: [phone] Please call with any questions or concerns Attending for this patient encounter is Dr. Nicolas Future Appointments Appointment Date:12/28/2021 11:30:00 AM Scheduled Provider:CATY MACARIO Location:[facility] Appointment Type:CV OV Hospital Follow Up Appointment Date:12/28/2021 03:00:00 PM Scheduled Provider:TESSA GUZMAN MD Location:[facility] Appointment Type:CTS OV [facility] 01-09-2019 History of Past illness Narrative* Problem Noted Date Resolved Date High serum parathyroid hormone (PTH) 08/01/2018 08/12/2019 Elevated PTHrP level 07/21/2018 08/12/2019 Impaired fasting glucose 09/03/2017 019 Abrasion of left ear canal 08/28/201708/12 Stool guaiac positive 01/19/2016 08/01/2018 Hyperuricemia 10/30/2014 08/12/2019 Neurodermatitis 07/12/2011 08/01/2018 documented as of this encounter (statuses as of 12/02/2021) [facility] of [facility] illness Narrative* Problem Noted Date Resolved Date High serum parathyroid hormone (PTH) 08/01/2018 08/12/2019 Elevated PTHrP level 07/21/2018 08/12/2019 Impaired fasting glucose 09/03/2017 019 Abrasion of left ear canal 08/28/201708/12 Stool guaiac positive 01/19/2016 08/01/2018 Hyperuricemia 10/30/2014 08/12/2019 Neurodermatitis 07/12/2011 08/01/2018 documented as of this encounter (statuses as of 12/31/2021) [facility] of [facility] illness Narrative* Problem Noted Date Resolved Date High serum parathyroid hormone (PTH) 08/01/2018 08/12/2019 Elevated PTHrP level 07/21/2018 08/12/2019 Impaired fasting glucose 09/03/2017 019 Abrasion of left ear canal 08/28/201708/12 Stool guaiac positive 01/19/2016 08/01/2018 Hyperuricemia 10/30/2014 08/12/2019 Neurodermatitis 07/12/2011 08/01/2018 documented as of this encounter (statuses as of 01/02/2022) [facility] Narrative* Problem Noted Date Resolved Date High serum parathyroid hormone (PTH) 08/01/2018 08/12/2019 Elevated PTHrP level 07/21/2018 08/12/2019 Impaired fasting glucose 09/03/2017 019 Abrasion of left ear canal 08/28/201708/12 Stool guaiac positive 01/19/2016 08/01/2018 Hyperuricemia 10/30/2014 08/12/2019 Neurodermatitis 07/12/2011 08/01/2018 documented as of this encounter (statuses as of 04/12/2022) [facility] Narrative* Problem Noted Date Resolved Date High serum parathyroid hormone (PTH) 08/01/2018 08/12/2019 Elevated PTHrP level 07/21/2018 08/12/2019 Impaired fasting glucose 09/03/2017 019 Abrasion of left ear canal 08/28/201708/12 Stool guaiac positive 01/19/2016 08/01/2018 Hyperuricemia 10/30/2014 08/12/2019 Neurodermatitis 07/12/2011 08/01/2018 documented as of this encounter (statuses as of 04/19/2022) [facility] Narrative* Problem Noted Date Resolved Date High serum parathyroid hormone (PTH) 08/01/2018 08/12/2019 Elevated PTHrP level 07/21/2018 08/12/2019 Impaired fasting glucose 09/03/2017 019 Abrasion of left ear canal 08/28/201708/12 Stool guaiac positive 01/19/2016 08/01/2018 Hyperuricemia 10/30/2014 08/12/2019 Neurodermatitis 07/12/2011 08/01/2018 documented as of this encounter (statuses as of 09/06/2022) [facility] Narrative* Problem Noted Date Resolved Date High serum parathyroid hormone (PTH) 08/01/2018 08/12/2019 Elevated PTHrP level 07/21/2018 08/12/2019 Impaired fasting glucose 09/03/2017 019 Abrasion of left ear canal 08/28/201708/12 Stool guaiac positive 01/19/2016 08/01/2018 Hyperuricemia 10/30/2014 08/12/2019 Neurodermatitis 07/12/2011 08/01/2018 documented as of this encounter (statuses as of 09/06/2022) [facility] Narrative* Problem Noted Date Resolved Date High serum parathyroid hormone (PTH) 08/01/2018 08/12/2019 Elevated PTHrP level 07/21/2018 08/12/2019 Impaired fasting glucose 09/03/2017 019 Abrasion of left ear canal 08/28/201708/12 Stool guaiac positive 01/19/2016 08/01/2018 Hyperuricemia 10/30/2014 08/12/2019 Neurodermatitis 07/12/2011 08/01/2018 documented as of this encounter (statuses as of 09/12/2022) [facility] Narrative* Problem Noted Date Resolved Date High serum parathyroid hormone (PTH) 08/01/2018 08/12/2019 Elevated PTHrP level 07/21/2018 08/12/2019 Impaired fasting glucose 09/03/2017 019 Abrasion of left ear canal 08/28/201708/12 Stool guaiac positive 01/19/2016 08/01/2018 Hyperuricemia 10/30/2014 08/12/2019 Neurodermatitis 07/12/2011 08/01/2018 documented as of this encounter (statuses as of 09/16/2022) [facility] Narrative* Problem Noted Date Resolved Date High serum parathyroid hormone (PTH) 08/01/2018 08/12/2019 Elevated PTHrP level 07/21/2018 08/12/2019 Impaired fasting glucose 09/03/2017 019 Abrasion of left ear canal 08/28/201708/12 Stool guaiac positive 01/19/2016 08/01/2018 Hyperuricemia 10/30/2014 08/12/2019 Neurodermatitis 07/12/2011 08/01/2018 documented as of this encounter (statuses as of 09/16/2022) [facility] Narrative* Problem Noted Date Resolved Date High serum parathyroid hormone (PTH) 08/01/2018 08/12/2019 Elevated PTHrP level 07/21/2018 08/12/2019 Impaired fasting glucose 09/03/2017 019 Abrasion of left ear canal 08/28/201708/12 Stool guaiac positive 01/19/2016 08/01/2018 Hyperuricemia 10/30/2014 08/12/2019 Neurodermatitis 07/12/2011 08/01/2018 documented as of this encounter (statuses as of 10/12/2022) [facility] Narrative* Problem Noted Date Resolved Date High serum parathyroid hormone (PTH) 08/01/2018 08/12/2019 Elevated PTHrP level 07/21/2018 08/12/2019 Impaired fasting glucose 09/03/2017 019 Abrasion of left ear canal 08/28/201708/12 Stool guaiac positive 01/19/2016 08/01/2018 Hyperuricemia 10/30/2014 08/12/2019 Neurodermatitis 07/12/2011 08/01/2018 documented as of this encounter (statuses as of 10/13/2022) [facility] Narrative* Problem Noted Date Resolved Date High serum parathyroid hormone (PTH) 08/01/2018 08/12/2019 Elevated PTHrP level 07/21/2018 08/12/2019 Impaired fasting glucose 09/03/2017 019 Abrasion of left ear canal 08/28/201708/12 Stool guaiac positive 01/19/2016 08/01/2018 Hyperuricemia 10/30/2014 08/12/2019 Neurodermatitis 07/12/2011 08/01/2018 documented as of this encounter (statuses as of 10/21/2022) [facility] Narrative* Problem Noted Date Resolved Date High serum parathyroid hormone (PTH) 08/01/2018 08/12/2019 Elevated PTHrP level 07/21/2018 08/12/2019 Impaired fasting glucose 09/03/2017 019 Abrasion of left ear canal 08/28/201708/12 Stool guaiac positive 01/19/2016 08/01/2018 Hyperuricemia 10/30/2014 08/12/2019 Neurodermatitis 07/12/2011 08/01/2018 documented as of this encounter (statuses as of 11/11/2022) [facility] Narrative* Problem Noted Date Resolved Date High serum parathyroid hormone (PTH) 08/01/2018 08/12/2019 Elevated PTHrP level 07/21/2018 08/12/2019 Impaired fasting glucose 09/03/2017 019 Abrasion of left ear canal 08/28/201708/12 Stool guaiac positive 01/19/2016 08/01/2018 Hyperuricemia 10/30/2014 08/12/2019 Neurodermatitis 07/12/2011 08/01/2018 documented as of this encounter (statuses as of 11/15/2022) [facility] Narrative* Problem Noted Date Resolved Date High serum parathyroid hormone (PTH) 08/01/2018 08/12/2019 Elevated PTHrP level 07/21/2018 08/12/2019 Impaired fasting glucose 09/03/2017 019 Abrasion of left ear canal 08/28/201708/12 Stool guaiac positive 01/19/2016 08/01/2018 Hyperuricemia 10/30/2014 08/12/2019 Neurodermatitis 07/12/2011 08/01/2018 documented as of this encounter (statuses as of 12/20/2022) [facility] Narrative* Problem Noted Date Resolved Date High serum parathyroid hormone (PTH) 08/01/2018 08/12/2019 Elevated PTHrP level 07/21/2018 08/12/2019 Impaired fasting glucose 09/03/2017 019 Abrasion of left ear canal 08/28/201708/12 Stool guaiac positive 01/19/2016 08/01/2018 Hyperuricemia 10/30/2014 08/12/2019 Neurodermatitis 07/12/2011 08/01/2018 documented as of this encounter (statuses as of 01/06/2023) [facility] No data available for this section [facility] Evaluation + Plan note Future Appointments Appointment Date:03/11/2022 01:30:00 PM Scheduled Provider: Location:[facility] Appointment Type:CV Hospital Follow Up [facility] Evaluation note* Diagnosis Myocardial infarction involving left anterior descending (LAD) coronary artery, unspecified OK type (HCC)- Primary [facility]No assessment information [facility] Work Phone: Evaluation note* Diagnosis Coronary artery disease due to lipid rich plaque- Primary Essential hypertension, benign Mixed hyperlipidemia Gout without tophus Low vitamin D level Elevated PSA Elevated prostate specific antigen (PSA) Medication management Encounter for long-term (current) use of other medications [facility] Diagnosis Medicare annual wellness [...] Other specified counseling [facility] Diagnosis NSTEMI (non-ST elevated myocardial infarction) (HCC) Acute myocardial infarction, subendocardial infarction, episode of care unspecified Diverticulosis Diverticulosis of colon (without mention of hemorrhage) documented [facility] this encounter [facility]* Diagnosis Onset Date Resolution Status Acute blood loss anemia acut e BC (acute kidney injury) ac sitka Bloody diarrhea acute Chest pain acute History of hypertension acut e Leukocytosis acute NSTEMI (non-ST elevated myocardial infarction) acute [facility] Work Phone: Evaluation note* Diagnosis Lower GI bleed- Primary Hemorrhage of gastrointestinal tract, unspecified Situational depression Adjustment disorder with depressed mood 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 Alcohol abuse Alcohol abuse, unspecified H/O non-ST elevation myocardial infarction (NSTEMI) Old myocardial infarction Mixed hyperlipidemia documented in this encounter [facility]* Diagnosis Essential hypertension, benign- Primary Mixed hyperlipidemia NSTEMI (non-ST elevated myocardial infarction) ([facility]) Acute myocardial infarction, subendocardial infarction, episode of [...] Gout without tophus documented in this encounter [facility]* Diagnosis Onset Date Resolution Status BC (acute kidney injury) ac sitka Leukocytosis acute NSTEMI (non-ST elevated myocardial infarction) acute 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 acute Essential hypertension acute Hyperlipidemia acute [facility] Work Phone: Evaluation note* Diagnosis Medicare annual [...] ear wax, right [facility]* Diagnosis Essential hypertension, benign- Primary Low serum vitamin B12 Anxiety Anxiety state, unspecified documented in this encounter [facility] note* Diagnosis Other specified disorders of kidney and ureter- Primary Essential hypertension, benign Kidney lesion Unspecified disorder of kidney and ureter documented [facility] this encounter [facility]* Diagnosis Other specified disorders of kidney and ureter Kidney lesion Unspecified disorder of kidney and ureter [facility] Diagnosis Onset Date Resolution Status Neuropathy acute Other intervertebral disc degeneration, lumbar region acute 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 acute Dizziness acute Essential hypertension acute Hyperlipidemia acute SOB (shortness of breath) [facility] Work Phone: Evaluation note* Diagnosis Coronary artery disease due to lipid rich plaque- Primary Essential hypertension, benign Mixed hyperlipidemia Kidney lesion Unspecified disorder of kidney and ureter Low serum vitamin B12 Gout without tophus Alcohol abuse Alcohol abuse, unspecified Elevated PSA Elevated prostate specific antigen (PSA) [facility] Diagnosis Renal stones- Primary Calculus of kidney Hydronephrosis, unspecified hydronephrosis type [facility]* Diagnosis Balance problems- Primary Other symptoms involving nervous and musculoskeletal systems Abnormality of gait Numbness Disturbance of skin sensation Neuropathy Mononeuritis of unspecified site Other symptoms and signs involving the nervous system History of CAD (coronary artery disease) History of coronary artery stent placement Postsurgical percutaneous transluminal coronary angioplasty status [facility] Diagnosis Other symptoms and signs involving the nervous system [facility] Diagnosis Other symptoms and signs involving the nervous system [facility] Diagnosis Occlusion and stenosis of unspecified carotid artery- Primary Nephropathy screen Screening for nephropathy Stenosis of carotid artery, unspecified laterality [facility] Diagnosis Occlusion and stenosis of unspecified carotid artery [facility]* Diagnosis Tongue swelling- Primary Swelling, mass, or lump in head and neck [facility]* Diagnosis Essential hypertension, benign- Primary [facility]* Diagnosis Medicare annual wellness visit, subsequent- Primary Routine general medical examination at a health care facility Encounter for immunization Need for other specified prophylactic vaccination against single bacterial disease Essential hypertension, benign Advance directive discussed with patient Other specified counseling Living will in place Tinter Photograph's nodules Localized superficial swelling, mass, or lump [...] specific antigen (PSA) [facility] Diagnosis Liver fibrosis- Primary Cirrhosis of liver without mention of alcohol [facility] Diagnosis Essential hypertension, benign- Primary [facility] Diagnosis Alcoholic cirrhosis, unspecified whether ascites present (HCC)- Primary [facility] Diagnosis Angioedema, subsequent encounter- Primary [facility] Diagnosis Angioedema, subsequent encounter [facility] Diagnosis Neuropathy, idiopathic- Primary Mononeuritis of unspecified site Abnormal SPEP Other nonspecific findings on examination of blood Positive GALLO (antinuclear antibody) Other and unspecified nonspecific immunological findings Abnormality of gait Numbness Disturbance of skin sensation [facility] Diagnosis Abnormal SPEP- Primary Other nonspecific findings on examination of blood [facility] Diagnosis Positive GALLO (antinuclear antibody)- Primary Other and unspecified nonspecific immunological findings Ds DNA antibody positive Other and unspecified nonspecific immunological findings Neuropathy Mononeuritis of unspecified site [facility] Diagnosis Neuropathy - (NOS)- Primary [facility] Diagnosis Monoclonal gammopathy- Primary Monoclonal paraproteinemia Hypercalcemia [facility] Diagnosis Monoclonal gammopathy- Primary Monoclonal paraproteinemia Neuropathy - (NOS) [facility] Diagnosis Monoclonal gammopathy Monoclonal paraproteinemia [facility] Diagnosis Essential hypertension, benign- Primary Alcoholic [...] unspecified cardiovascular conditions [facility] Diagnosis Screening for abdominal aortic aneurysm Screening for other and unspecified cardiovascular conditions [facility] Diagnosis Peripheral polyneuropathy- Primary Unspecified hereditary and idiopathic peripheral neuropathy Low vitamin B12 level Other B-complex deficiencies Drinks beer [facility] Hospital discharge follow-up- Primary Other follow-up examination Essential hypertension, benign [facility] Author Flakita Florentino [facility] Note Date/Time December 27, 2024 2:52p m [facility] Medical Records Department [address] [place] [address] H&P Exam - Hospitalist 12/27/24 1411 MR#: [id number] Acct: [id number] Name: NAZARIO HUTTON Rep #:[id number] : 1950 74 From: Flakita Florentino DO PCP: Dr. Valeriano Beasley MD Status:REG ER Location: ED HPI - General General Date of Admission: 12/27/24 Date of Service: 12/27/24 Chief Complaint: Tongue and lip swelling HPI Narrative NAZARIO HUTTON, is a 74 M who presented to the emergency department at [facility] on 12/27/2024 with tongue and lip swelling. [...] maintained on Solu-Medrol, H2 and H1 blockers. [facility] Medical History High serum parathyroid hormone (PTH) Heart murmur Elevated alkaline phosphatase level Elevated PSA Diverticulosis AVM (arteriovenous malformation) of colon Vitamin D deficiency Gout Alcohol abuse Essential hypertension Chest pain Anxiety Depression Myocardial infarct Chest pain Acute blood loss anemia Bloody diarrhea Coronary artery disease Atherosclerotic heart disease of citizen [place] coronary artery without angina pectoris ST elevation OK (STEMI) (~11/29/21) Hyperlipidemia Hypertension Home Medications ?Medication [...] disease Hypertension Myocardial infarction age 53 following OK. Surgical History H/O colonoscopy S/P cataract extraction [...] (Auto) 67.1, Lymph % (Auto) 9.8 L, Glenn % (Auto) 11.2 H, Eos % (Auto) [...] Patient should follow-up as an outpatient with linseed oil press tender if has not already done so Chronic [...] Full code Charges/Coding Visit Charges Inpatient E&M: 27361 Init Hosp L2 12/27/24 1452 <Electronically signed by Flakita Florentino DO> Cosigner Signature (if applicable): CC: Dr. Valeriano Beasley MD; Dr. Flakita Florentino DO~ Signed [facility] Work Phone: Hospital Discharge instructions No data available for this section [facility] Note* FRANKLIN VAUGHN MD: SIGN, VERIFY Event Display: Percut Transluminal Coronary Angioplasty Authored Date: [facility] Progress note No data available for this section [facility] Progress note Author Dr. Crespo [facility] September 10, 2022 1:29pm Note Date/Time September 10, 2022 1:29pm [facility] Medical Records Department [address] [place] [address] Progress Note - Hospitalist 09/10/22 1328 MR#: [id number] Acct: [id number] Name: NAZARIO HUTTON Rep #:[id number] : 1950 71 From: Obdulio goyal MD PCP: Dr. Valeriano Beasley MD Status:ADM IN Location: [place] [address] Subjective Subjective This progress note is for [...] mild segmental systolic dysfunction. Records requested from [facility] * Appreciate cardiology's assistance, will restart Plavix by itself in about a week #Acute alcohol withdrawal * patient has a history of heavy alcohol use, and drinks 4-6 drinks daily. * alcohol withdrawal protocol with ativan. * on folic acid, thiamine and multivitamin. DVT: SCDs Charges/Coding Visit Charges Inpatient E&M: 09555 Subs Hosp L2 09/10/22 1329 <Electronically signed by Obdulio Crespo MD> Cosigner Signature (if applicable): CC: ~ Signed [facility] Work Phone: [facility] for referral (narrative)No reason for referral information [facility] Work Phone: [facility] for visit Narrative* Diagnostic Procedure Only (Routine) - Closed Specialty Diagnoses / Procedures Referred By Lisandroac t Referred To Contact XR IMAGING Diagnoses Monoclonal gammopathy Procedures XR BONE SURVEY ROUTINE RADIOLOGIC EXAMINATION OSSEOUS SURVEY COMPL Stephanie Roy, [address] [place] [address] Phone: tel: fax: XR IMAGING [place] [id number] Referral ID Status Reason Start Date Expiration Date V isits Requested Visits Authorized [id number] Closed Auto-Generate d Referral 10/23/2024 11/22/2025 1 1 [facility] Reason for Referral Specialty Diagnoses / Procedures Referred By Contac t Referred To Contact Rheumatology Diagnoses Positive GALLO (antinuclear antibody) Procedures CONSULT TO RHEUM/IMMUN DISEASE OFFICE/OUTPATIENT [facility] 60 MINUTES Patria Khanna Jr., MD [address] [place] [address] Referral ID Status Reason Start Date Expiration Date Visits Requested Visits Authorized [id number] Authorized PCP Requested Referral 08/30/2024 08/30/2025 1 1 Specialty Diagnoses / Procedures Referred By Contac t Referred To Contact Allergy Diagnoses Angioedema, subsequent encounter Procedures CONSULT TO ALLERGY/IMMUNOLOGY OFFICE/OUTPATIENT [facility] MDM 60 MINUTES Valeriano Beasley MD [address] [place] [address] Referral ID Status Reason Start Date Expiration Date Visits Requested Visits Authorized [id number] Authorized PCP Requested Referral 07/31/2024 07/31/2025 1 1 Specialty Diagnoses / Procedures Referred By Contac t Referred To Contact Gastroenterology Diagnoses Liver fibrosis Procedures CONSULT TO GASTROENTEROLOGY OFFICE/OUTPATIENT [facility] 60 MINUTES Suzanna Dawson PA-C [address] [place] [address] Referral ID Status Reason Start Date Expiration Date Visits Requested Visits Authorized [id number] Authorized PCP Requested Referral 05/15/2025 1 1 Specialty Diagnoses / Procedures Referred By Contac t Referred To Contact Vascular Surgery Diagnoses Stenosis of carotid artery, unspecified laterality Procedures CONSULT TO VASCULAR SURGERY OFFICE/OUTPATIENT [facility] 60 MINUTES Patria Khanna Jr., MD [address] [place] [address] [address] [place] [address] Referral ID Status Reason Start Date Expiration Date Visits Requested Visits Authorized [id number] Authorized PCP Requested Referral 02/07/2024 02/06/2025 1 1 Specialty Diagnoses / Procedures Referred By Contac t Referred To Contact CT IMAGING Diagnoses Occlusion and stenosis of unspecified carotid artery Procedures CTA NECK W IVCON CT ANGIOGRAPHY NECK W/CONTRAST/NONCONTRAST Patria Khanna Jr., MD [address] [facility] [address] [place] [address] [place] [id number] Referral ID Status Reason Start Date Expiration Date Visits Requested Visits Authorized [id number] New Request Auto-Generat ed Referral 02/07/2024 03/08/2025 1 1 Specialty Diagnoses / Procedures Referred By Contac t Referred To Contact CT IMAGING Diagnoses Occlusion and stenosis of unspecified carotid artery Procedures CTA HEAD W IVCON CT ANGIOGRAPHY HEAD W/CONTRAST/NONCONTRAST Patria Khanna Jr., MD [address] [facility] [address] [place] [address] [place] [address] Referral ID Status Reason Start Date Expiration Date Visits Requested Visits Authorized [id number] New Request Auto-Generat ed Referral 02/07/2024 03/08/2025 1 1 Specialty Diagnoses / Procedures Referred By Contac t Referred To Contact CT IMAGING Diagnoses Stenosis of carotid artery, unspecified laterality Procedures CTA NECK W IVCON CT ANGIOGRAPHY NECK W/CONTRAST/NONCONTRAST Patria Khanna Jr., MD [address] [facility] [address] [place] [address] [place] [address] Referral ID Status Reason Start Date Expiration Date Visits Requested Visits Authorized [id number] New Request Auto-Generat ed Referral 02/07/2024 03/08/2025 1 1 Specialty Diagnoses / Procedures Referred By Contac t Referred To Contact CT IMAGING Diagnoses Stenosis of carotid artery, unspecified laterality Procedures CTA HEAD W IVCON CT ANGIOGRAPHY HEAD W/CONTRAST/NONCONTRAST Patria Khanna Jr., MD [address] [facility] [address] [place] [address] [place] [address] Referral ID Status Reason Start Date Expiration Date Visits Requested Visits Authorized [id number] New Request Auto-Generat ed Referral 02/07/2024 03/08/2025 1 1 Specialty Diagnoses / Procedures Referred By Contac t Referred To Contact MR IMAGING Diagnoses Other symptoms and signs involving the nervous system Procedures MRA CAROTID WO IVCON MRA, NECK; W/O CONTRAST Patria Khanna Jr., MD [address] [facility] [address] [place] [address] [place] [address] Referral ID Status Reason Start Date Expiration Date Visits Requested Visits Authorized [id number] Authorized Auto-Generat ed Referral 01/01/2024 01/30/2025 1 1 Specialty Diagnoses / Procedures Referred By Contac t Referred To Contact MR IMAGING Diagnoses Other symptoms and signs involving the nervous system Procedures MRA BRAIN WO IVCON MRA, HEAD W/O CONTRAST Patria Khanna Jr., MD [address] [facility] [address] [place] [address] [place] [id number] Referral ID Status Reason Start Date Expiration Date Visits Requested Visits Authorized [id number] Authorized Auto-Generat ed Referral 01/01/2024 01/30/2025 1 1 Specialty Diagnoses / Procedures Referred By Contac t Referred To Contact MR IMAGING Diagnoses Other symptoms and signs involving the nervous system Procedures MRI BRAIN WO IVCON MRI BRAIN BRAIN STEM W/O CONTRAST MATERIAL Patria Khanna Jr., MD [address] [facility] [address] [place] [address] [place] [id number] Referral ID Status Reason Start Date Expiration Date Visits Requested Visits Authorized [id number] Authorized Auto-Generat ed Referral 01/01/2024 01/30/2025 1 1 Specialty Diagnoses / Procedures Referred By Contac t Referred To Contact Urology Diagnoses Renal stones Hydronephrosis, unspecified hydronephrosis type Procedures CONSULT TO UROLOGY OFFICE/OUTPATIENT [facility] 60 MINUTES Valeriano Beasley MD [facility] [place] [address] Referral ID Status Reason Start Date Expiration Date Visits Requested Visits Authorized [id number] Authorized PCP Requested Referral 10/17/2023 08/29/2024 1 1 Specialty Diagnoses / Procedures Referred By Contac t Referred To Contact CT IMAGING Diagnoses Other specified disorders of kidney and ureter Kidney lesion Procedures CT KIDNEY WO/W IVCON CT ABDOMEN W & W/O CONTRAST Valeriano Beasley MD [facility] [place] [address] [place] [id number] Referral ID Status Reason Start Date Expiration Date Visits Requested Visits Authorized [id number] Authorized Auto-Generat ed Referral 08/21/2023 09/19/2024 1 1 Specialty Diagnoses / Procedures Referred By Contac t Referred To Contact Neurology Diagnoses Balance problems Atrophy of muscle of right shoulder Atrophy of muscle of other site Procedures CONSULT TO NEUROLOGY OFFICE/OUTPATIENT [facility] 60-74 MINUTES Valeriano Beasley MD [address] [place] [address] Referral ID Status Reason Start Date Expiration Date Visits Requested Visits Authorized [id number] Pending Review PCP Requested Referral 04/20/2023 04/19/2024 1 1 Specialty Diagnoses / Procedures Referred By Contac t Referred To Contact Cardiology Diagnoses Myocardial infarction involving left anterior descending (LAD) coronary artery, unspecified [place] type (HCC) Procedures CONSULT TO CARDIOLOGY OFFICE/OUTPATIENT [facility] 60-74 MINUTES Tessa Donato, [address] [place] [address] [place] [address] Referral ID Status Reason Start Date Expiration Date Visits Requested Visits Authorized [id number] Pending Review PCP Requested Referral 01/01/2022 01/01/2023 [...] DIARRHEAL ILLNESS Amb Documentation ER FU S/P [facility] INT [facility] Reason for Visit BC (acute kidney in jury) Leukocytosis NSTEMI (non-ST elevated myocardial infarction) Atherosclerotic heart disease of citizen [place] coronary artery without angina pectoris Essential hypertension Hyperlipidemia Chief Complaint Anesthesia of skin Anesthesia of skin Chief Complaint Anesthesia of skin Anesthesia of skin LUMBAR SPINE Xray room 3 9 M FU E ORDERS Reason for Visit Neuropathy Other intervertebral disc degeneration, 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 Dizziness Essential hypertension Hyperlipidemia SOB (shortness of breath) Chief Complaint LUMBAR SPINE Xray room 3 9 M FU E ORDERS Dizziness and giddiness Amb Documentation Reason for Visit Neuropathy Other intervertebral disc degeneration, 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 Dizziness Essential [...] 2024 1:55pm 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 November 05, [...] 2024 1:55pm 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 November 05, [...] Admit Date 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 November 05, [...] Yes March 25, 022 2:44pm Power of Agronomy Specialist Yes March 25, 2022 2:44pm Advance Directives on File No Septe [id number] 2:44pm Advance Directive Response Recorded Date/ Time Living Will Yes March 25 1:44pm Power of Agronomy Specialist Yes March 25, 2022 1:44pm Advance Directive Response Recorded Date/ Time Name of Medical Power of Agronomy Specialist son --Ye September 02, 2022 3:31pm Living Will Yes September 02 023 3:31pm Power of Agronomy Specialist Yes September 02, 2022 3:31pm Advance Directive Response Recorded Date/ Time Name of Medical Power of Agronomy Specialist son --Ye September 02, 2022 4:31pm Living Will Yes 2022 1:35pm Power of Agronomy Specialist Yes October 19 1:35pm Advance Directive Response Recorded Date/ Time Living Will Yes 2022 12:35pm Power of Agronomy Specialist Yes October 19 12:35pm Advance Directive Response Recorded Date/ Time Living Will Yes August 23 3:18pm Power of Agronomy Specialist Yes August 23, 2023 3:18pm Advance Directive Response Recorded Date/ Time Living Will Yes August 23 4:18pm Power of Agronomy Specialist Yes August 23, 2023 4:18pm Advance Directive Response Recorded Date/ Time Living Will Yes July 18 024 11:19am Power of Agronomy Specialist Yes July 18, 2024 11:19am Name of Medical Power of Agronomy Specialist jae matiascesar jonaradha July 18, 2024 11:19am Advance Directive Response Recorded Date/ Time Living Will Yes July 18 11:19am Do you have a Healthcare Pow er of Agronomy Specialist? Yes July 18, 2024 11:19am Name of Medical Power of Agronomy Specialist emeka marvin July 18, 2024 11:19am Advance Directive Response Recorded Date/ Time Do you have a Healthcare Power of Agronomy Specialist? No December 27, 2024 1:13pm Advance Directive Response Recorded Date/ Time Do you have a Healthcare Power of Agronomy Specialist? No December 27, 2024 1:13pm Do you have a Healthcare Power of Agronomy Specialist? Yes January 23, 2025 9:26pm Family History Relationship Condition Age at Onset Recorded Date/T lacy mother Chronic obstructive pulmonary disease Unk nown Malignant neoplasm of lung Unknown father Cardiac disease Unknown Hypertension Unknown Myocardial infarction Unknown Summary Purpose Additional Source Comments Care Team (unrecognized sect ion and content) Field Return Repairer Relationship Specialty Start Date End Date Valeriano Beasley MD [address] [place] [address] PCP - General Family Practice 03/15/21 Field Return Repairer Relationship Specialty Start Date End Date Valeriano Beasley MD [facility] [place] [address] PCP - General Family Practice 03/15/21 Field Return Repairer Relationship Specialty Start Date End Date Valeriano Beasley MD [facility] [place] [address] PCP - General Family Practice 03/15/21 Field Return Repairer Relationship Specialty Start Date End Date Valeriano Beasley MD [facility] [place] [address] PCP - General Family Medicine 03/15/21 Field Return Repairer Relationship Specialty Start Date End Date Valeriano Beasley MD [facility] [place] [address] PCP - General Family Medicine 03/15/21 Field Return Repairer Relationship Specialty Start Date End Date Valeriano eBasley MD [facility] [place] [address] PCP - General Family Medicine 03/15/21 Field Return Repairer Relationship Specialty Start Date End Date Valeriano Beasley MD [address] [place] [address] PCP - General Family Medicine 03/15/21 Team [...] MD Primary Care Provider Active Dr. Marino Hloguin MD Emergency Provider Active Dr. Jael Ramos [...] Lukas Cuevas MD Attending Provider Active Dr. Jael Ramos [...] Dr. Obdulio Crespo MD Attending Provider Active Field Return Repairer Relationship Specialty Start Date End Date Valeriano Beasley MD [address] [facility] [place] [address] PCP - General Family Medicine 03/15/21 Field Return Repairer Relationship Specialty Start Date End Date Valeriano Beasley MD [address] [facility] [place] [address] PCP - General Family Medicine 03/15/21 Field Return Repairer Relationship Specialty Start Date End Date Valeriano Beasley MD [address] [facility] [place] [address] PCP - General Family Medicine 03/15/21 Field Return Repairer Relationship Specialty Start Date End Date Valeriano Beasley MD [address] [place] [address] PCP - General Family Medicine 03/15/21 Field Return Repairer Relationship Specialty Start Date End Date Valeriano Beasley MD [address] [facility] [place] [address] PCP - General Family Medicine 03/15/21 Field Return Repairer Relationship Specialty Start Date End Date Valeriano Beasley MD [address] [place] [address] PCP - General Family Medicine 03/15/21 Field Return Repairer Relationship Specialty Start Date End Date Valeriano Beasley MD [address] [place] [address] PCP - General Family Medicine 03/15/21 Team [...] Status: Active Member Role Status Dates Dr. Valeriaon Beasley MD Primary Care Provider Active Dr. [...] Provider, Referri ng Provider Active Xochilt Casanova GOLD MINER, GOLD MINER-C Attending Provider Active Team Status: Active Member Role Status Dates Dr. Valeriano Beasley MD Primary Care Provider Active Liz Navarro Attending Provider Active Team Status: Inactive Member Role Status Dates Dr. Valeriano Beasley MD Primary Care Provider Active Xochilt Casanova GOLD MINER, GOLD MINER-C Attending Provider, Referrin g Provider Active Field Return Repairer Relationship Specialty Start Date End Date Valeriano Beasley MD [address] [place] [address] PCP - General Family Medicine 03/15/21 Field Return Repairer Relationship Specialty Start Date End Date Valeriano Beasley MD [address] [place] [address] PCP - General Family Medicine 03/15/21 Team Status: Active Member Role Status Dates Dr. Valeriano Beasley MD Primary Care Pro vider, Referring Provider, Other Provider Active Dr. Jung Braun MD Attending Provider Active Team Status: Inactive Member Role Status Dates Dr. Valeriano Beasley MD Primary Care Pro vider, Attending Provider, Referring Provider Active Field Return Repairer Relationship Specialty Start Date End Date Valeriano Beasley MD [address] [place] [address] PCP - General Family Medicine 03/15/21 Field Return Repairer Relationship Specialty Start Date End Date Valeriano Beasley MD [address] [place] [address] PCP - General Family Medicine 03/15/21 Field Return Repairer Relationship Specialty Start Date End Date Valeriano Beasley MD [address] [place] [address] PCP - General Family Medicine 03/15/21 Field Return Repairer Relationship Specialty Start Date End Date Valeriano Beasley MD [address] [place] [address] PCP - General Family Medicine 03/15/21 Field Return Repairer Relationship Specialty Start Date End Date Valeriano Beasley MD [address] [place], [place] [address] PCP - General Family Medicine 03/15/21 Team Status: Inactive Member Role Status Dates Dr. Valeriano Beasley MD Primary Care Provider, Referri ng Provider Active Estefany Thrasher GOLD MINER, GOLD MINER-C Attending Provider Active Team Status: Inactive Member [...] MD Primary Care Provider Active Estefany Thrasher GOLD MINER, GOLD MINER-C Attending Provider, Referring P andrzej Active Field Return Repairer Relationship Specialty Start Date End Date Valeriano Beasley MD [address] [place] [address] PCP - General Family Medicine 03/15/21 Team Status: Active Member Role Status Dates Dr. Valeriano Beasley MD Primary Care Provider Active Dr. Alexi Jaime MD Attending Provider Active Team Status: Active Member Role Status Dates Dr. Valeriano Beasley MD Primary Care Provider Active Estefany Thrasher GOLD MINER, GOLD MINER-C Attending Provider Active Field Return Repairer Relationship Specialty Start Date End Date Valeriano Beasley MD [address] [place] [address] PCP - General Family Medicine 03/15/21 Field Return Repairer Relationship Specialty Start Date End Date Valeriano Beasley MD [address] [place], [place] [address] PCP - General Family Medicine 03/15/21 Field Return Repairer Relationship Specialty Start Date End Date Valeriano Beasley MD [address] [place] [address] PCP - General Family Medicine 03/15/21 Field Return Repairer Relationship Specialty Start Date End Date Valeriano Beasley MD [address] [place] [address] PCP - General Family Medicine 03/15/21 Field Return Repairer Relationship Specialty Start Date End Date Valeriano Beasley MD [address] [place] [address] PCP - General Family Medicine 03/15/21 Field Return Repairer Relationship Specialty Start Date End Date Valeriano Beasley MD [address] [place] [address] PCP - General Family Medicine 03/15/21 Field Return Repairer Relationship Specialty Start Date End Date Valeriano Beasley MD [address] [place] [address] PCP - General Family Medicine 03/15/21 Field Return Repairer Relationship Specialty Start Date End Date Valeriano Beasley MD [address] [place] [address] PCP - General Family Medicine 03/15/21 Field Return Repairer Relationship Specialty Start Date End Date Valeriano Beasley MD [address] [place] [address] PCP - General Family Medicine 03/15/21 Field Return Repairer Relationship Specialty Start Date End Date Valeriano Beasley MD [address] [place] [address] PCP - General Family Medicine 03/15/21 Field Return Repairer Relationship Specialty Start Date End Date Valeriano Beasley MD [address] [place] [address] PCP - General Family Medicine 03/15/21 Field Return Repairer Relationship Specialty Start Date End Date Valeriano Beasley MD [address] [place] [address] PCP - General Family Medicine 03/15/21 Field Return Repairer Relationship Specialty Start Date End Date Valeriano Beasley MD [address] [place] [address] PCP - General Family Medicine 03/15/21 Field Return Repairer Relationship Specialty Start Date End Date Valeriano Beasley MD [address] [place] [address] PCP - General Family Medicine 03/15/21 Field Return Repairer Relationship Specialty [place] [address] [place] [address] PCP - General Family Medicine 03/15/21 Field Return Repairer Relationship Specialty Start Date End Date Valeriano Beasley MD [address] [place] [address] PCP - General Family Medicine 03/15/21 Ni Sauceda APRN.CNP [address] [place] [id number] [employer] [facility] 06/29/24 Suzanna Dawson PA-C [address] [place] [address] [employer] [facility] 06/29/24 Field Return Repairer Relationship Specialty Start Date End Date Valeriano Beasley MD [address] [place] [address] PCP - General Family Medicine 03/15/21 Ni Sauceda APRN.LIGHT RAIL SIG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 [address] [place] [address] [employer] [facility] 06/29/24 Suzanna Dawson PA-C [address] [place] [address] [employer] [facility] 06/29/24 Field Return Repairer Relationship Specialty Start Date End Date Valeriano Beasley MD [address] [place] [address] PCP - General Family Medicine 03/15/21 Ni Sauceda APRN.LIGHT RAIL SIG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 [address] [place] [address] [employer] [facility] 06/29/24 Suzanna Dawson PA-C [address] [place] [address] [employer] [facility] 06/29/24 Field Return Repairer Relationship Specialty Start Date End Date Valeriano Beasley MD [address] [place] [address] PCP - General Family Medicine 03/15/21 Ni Sauceda APRN.LIGHT RAIL SIG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 [address] [place] [address] [employer] [facility] 06/29/24 Suzanna Dawson PA-C [address] [place] [address] [employer] [facility] 06/29/24 Field Return Repairer Relationship Specialty Start Date End Date Valeriano Beasley MD [address] [place] [address] PCP - General Family Medicine 03/15/21 Ni Sauceda APRN.LIGHT RAIL SIG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 [address] [place] [address] [employer] [facility] 06/29/24 Suzanna Dawson PA-C [address] [place] [address] [facility] 06/29/24 Field Return Repairer Relationship Specialty Start Date End Date Valeriano Beasley MD [address] [place] [address] PCP - General Family Medicine 03/15/21 Ni Sauceda APRN.LIGHT RAIL SIG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 [address] [place] [address] [facility] 06/[facility]/24 Suzanna Dawson PA-C [address] [place] [address] [facility] 06/29/24 Field Return Repairer Relationship Specialty Start Date End Date Valeriano Beasley MD [address] [place] [address] PCP - General Family Medicine 03/15/21 Ni Sauceda APRN.LIGHT RAIL SIG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 [address] [place] [address] [employer] [facility] 06/29/24 Suzanna Dawson PA-C [address] [place] [address] [employer] [facility] 06/29/24 Field Return Repairer Relationship Specialty Start Date End Date Valeriano Beasley MD [address] [place] [address] PCP - General Family Medicine 03/15/21 Ni Sauceda APRN.LIGHT RAIL SIG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 [address] [place] [address] [employer] [facility] 06/29/24 Suzanna Dawson PA-C [address] [place] [address] [employer] Family [facility] 06/29/24 Field Return Repairer Relationship Specialty Start Date End Date Valeriano Beasley MD [address] [place] [address] PCP - General Family Medicine 03/15/21 Ni Sauceda APRN.LIGHT RAIL SIG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 [facility] [place] [address] [employer] [facility] 06/29/24 Suzanna Dawson PA-C [address] [place] [address] [employer] [facility] 06/29/24 Field Return Repairer Relationship Specialty Start Date End Date Valeriano Beasley MD [address] [place] [address] PCP - General Family Medicine 03/15/21 Ni Sauceda APRN.LIGHT RAIL SIG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 [address] [place] [address] [employer] [facility] 06/29/24 Suzanna Dawson PA-C [address] [place] [address] [facility] 06/29/24 Field Return Repairer Relationship Specialty Start Date End Date Valeriano Beasley MD [address] [place] [address] PCP - General Family Medicine 03/15/21 Ni Sauceda, DENTIST ATTENDANT.LIGHT RAIL SIG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 [address] [place] [address] [facility] 06/29/24 Suzanna Dawson PA-C [address] [place] [address] [facility] 06/29/24 Patria Khanna Jr., MD [address] [place] [address] Neurology 09/25/24 Field Return Repairer Relationship Specialty Start Date End Date Valeriano Beasley MD [address] [place] [address] PCP - General Family Medicine 03/15/21 Ni Sauceda, DENTIST ATTENDANT.LIGHT RAIL SIG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 [address] [place] [address] [facility] Family [facility] 06/29/24 Suzanna Dawson PA-C [address] [place] [address] [facility] Family Medicine 06/29/24 Patria Khanna Jr., MD [address] [place] [address] Neurology 09/25/24 Team Status: Active Member Role [...] 19, 2024 End: September 19, 2024 Dr. Valeriano Beasely MD Referring Provider Active Start: September 19, [...] October 11, 2024 End: October 11, 2024 Field Return Repairer Relationship Specialty Start Date End Date Valeriano Beasley MD [address] [place] [address] [id number] PCP - General Family Medicine 03/15/21 Ni Sauceda APRN.CNP [address] [place] [address] [phone] [employer] [facility] 06/29/24 Suzanna Dawson PA-C [address] [place] [address] [phone] [employer] [facility] 06/29/24 Patria Khanna Jr., MD [address] [place] [address] [phone] Neurology 09/25/24 Field Return Repairer Relationship Specialty Start Date End Date Valeriano Beasley MD [facility] [place] [address] PCP - General Family Medicine 03/15/21 Ni Sauceda APRN.LIGHT RAIL SIG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 [facility] [place] [address] [employer] [facility] 06/29/24 Suzanna Dawson PA-C [address] [place] [address] [employer] [facility] 06/29/24 Patria Khanna Jr., MD [address] [place] [address] Neurology 09/25/24 Field Return Repairer Relationship Specialty Start Date End Date Valeriano Beasley MD [facility] [place] [address] PCP - General Family Medicine 03/15/21 Ni Sauceda APRN.LIGHT RAIL SIG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 [address] [place] [address] [employer] [facility] 06/29/24 Suzanna Dawson PA-C [facility] [place] [address] [employer] [facility] 06/29/24 Patria Khanna Jr., MD [facility] [place] [address] Neurology 09/25/24 Field Return Repairer Relationship Specialty Start Date End Date Valeriano Beasley MD [address] [place] [address] PCP - General Family Medicine 03/15/21 Ni Sauceda APRN.LIGHT RAIL SIG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 [address] [place] [address] [facility] 06/29/24 Suzanna Dawson PA-C [address] [place] [address] [facility] 06/29/24 Patria Khanna Jr., MD [address] [place] [address] Neurology 09/25/24 Field Return Repairer Relationship Specialty Start Date End Date Valeriano Beasley MD [address] [place] [address] PCP - General Family Medicine 03/15/21 Ni Sauceda APRN.LIGHT RAIL SIG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 [address] [place] [address] [facility] 06/29/24 Suzanna Dawson PA-C [address] [place] [address] [facility] 06/29/24 Patria Khanna Jr., MD [address] [place] [address] Neurology 09/25/24 Field Return Repairer Relationship Specialty Start Date End Date Valeriano Beasley MD [address] [place] [address] PCP - General Family Medicine 03/15/21 Ni Sauceda APRN.LIGHT RAIL SIG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 [address] [place] [address] [facility] 06/29/24 Suzanna Dawson PA-C [address] [place], [place] 966191 [facility] 06/29/24 Patria Khanna Jr., MD [address] [place] [address] [phone] Neurology 09/25/24 Team Status: Inactive Member Role Status Dates Dr. Valeriano Beasley MD Primary Care Provider Active Start: November 05, 2024 End: November 05, 2024 Dr. Valeriano Beasley MD Referring Provider Active Start: November 05, 2024 End: November 05, 2024 Estefany Thrasher NP, G[employer]ER-C Attending Provider Active Start: November 05, 2024 [...] November 05, 2024 End: November 05, 2024 Field Return Repairer Relationship Specialty Start Date End Date Valeriano Beasley MD [address] [place] [address] [phone] PCP - General Family Medicine 03/15/21 Ni Sauceda APRN.LIGHT RAIL SIG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 [address] [place] [address] [phone] [facility] 06/29/24 Suzanna Dawson PA-C [address] [place], [place] [id number] [facility] 06/29/24 Patria Khanna Jr., MD [address] [place] [address] Neurology 09/25/24 Field Return Repairer Relationship Specialty Start Date End Date Valeriano Beasley MD [address] [place] [address] PCP - General Family Medicine 03/15/21 Patria Khanna Jr., MD [address] [place] [address] Neurology 09/25/24 Ni Sauceda APRN.LIGHT RAIL SIG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 [address] [place] [address] [employer] [facility] 12/23/24 Suzanna Dawson PA-C [address] [place] [address] [employer] [facility] 12/23/24 Field Return Repairer Relationship Specialty Start Date End Date Valeriano Beasley MD [address] [place] [address] PCP - General Family Medicine 03/15/21 Patria Khanna Jr., MD [address] [place] [address] Neurology 09/25/24 Ni Sauceda APRN.LIGHT RAIL SIG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 [address] [place] [address] [employer] [facility] 12/23/24 Suzanna Dawson PA-C [facility] [place] [address] [facility] Family Medicine 12/23/24 Team Status: Active Member Role Status Dates Dr. Valeriano Beasley MD Primary Care Provider Active Start: December 27, 2024 Dr. Marino Holguin MD Emergency Provider Active Sta rt: December 27, 2024 Dr. Flakita Florentino DO Admit Provider [...] Star t: December 30, 2024 Dr. Kenan Cralwey , Other Provider Active St art: December [...] Provider Active Star t: December 30, 2024 Field Return Repairer Relationship Specialty Start Date End Date Valeriano Beasley MD [facility] [place] [address] PCP - General Family Medicine 03/15/21 Patria Khanna Jr., MD [address] [place] [address] [phone] Neurology 09/25/24 Ni Sauceda APRN.LIGHT RAIL SIG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 [facility] [place], [place] 335101 [employer] [facility] 12/23/24 Suzanna Dawson PA-C [address] [place] [address] 548371 [employer] [facility] 12/23/24 Field Return Repairer Relationship Specialty Start Date End Date Valeriano Beasley MD [address] [place] [address] PCP - General Family Medicine 03/15/21 Ni Sauceda APRN.LIGHT RAIL SIG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 [address] [place] [address] [employer] [facility] 06/29/24 12/08/24 Suzanna Dawson PA-C [address] [place] [address] [employer] [facility] 06/29/24 12/22/24 Patria Khanna Jr., MD [address] [place] [address] Neurology 09/25/24 Ni Sauceda APRN.LIGHT RAIL SIG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 [address] [place] [address] [employer] [facility] 12/23/24 Suzanna Dawson PA-C [address] [place] [address] [facility] 12/23/24 Field Return Repairer Relationship Specialty Start Date End Date Valeriano Beasley MD [address] [place] [address] PCP - General Family Medicine 03/15/21 Ni Sauceda APRN.LIGHT RAIL SIG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 [address] [place] [address] [phone] [employer] [facility] 06/29/24 12/08/24 Suzanna Dawson PA-C [facility] [place] [address] [facility] 06/29/24 12/22/24 Patria Khanna Jr., MD [address] [place], [place] 706271 Neurology 09/25/24 Ni Sauceda, SUNIL.LIGHT RAIL SIG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 [address] [place], [place] 859671 [facility] 12/23/24 Suzanna Dawson PA-C [address] [place], [place] 912041 [facility] 12/23/24 Field Return Repairer Relationship Specialty Start Date End Date Valeriano Beasley MD [address] [place], [place] 239791 PCP - General Family Medicine 03/15/21 Patria Khanna Jr., MD [address] [place] [address] [phone] Neurology 09/25/24 Ni Sauceda, SUNIL.LIGHT RAIL SIG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 [address] [place] [address] [phone] [facility] 12/23/24 Suzanna Dawson PA-C [address] [place] [address] [facility] 12/23/24 Team Status: Active Member Role/Relationship Status [...] End: November 05, 2024 Estefany Thrasher NP, G[employer] MINER-C Attending Provider Active Start: November 05, 2024 End: November 05, 2024 Team Status: Inactive Member Role/Relationship Status Dates Dr. Valeriano Beasley MD Primary Care Provider Active Start: November 05, 2024 End: November 05, 2024 Dr. Shubham Blanco MD Attending Provider Active Start: November 05, 2024 End: November 05, 2024 Dr. Shubham Blacno MD Referring Provider Active Start: November 05, [...] or prosecute any alcohol or drug abuse patient.[facility] HospitalIn the event this information is protected by the Federal Confidentiality of Alcohol and Drug Abuse Patient Records regulations: The Federal rules restrict any use of the information to criminally investigate or prosecute any alcohol or drug abuse patient.[facility] HospitalIn the event this information is protected by the Federal Confidentiality of Alcohol and Drug Abuse Patient Records regulations: The Federal rules restrict any use of the information to criminally investigate or prosecute any alcohol or drug abuse patient.[facility] HospitalIn the event this information is protected by the Federal Confidentiality of Alcohol and Drug Abuse Patient Records regulations: The Federal rules restrict any use of the information to criminally investigate or prosecute any alcohol or drug abuse patient.[facility] HospitalIn the event this information is protected by the Federal Confidentiality of Alcohol and Drug Abuse Patient Records regulations: The Federal rules restrict any use of the information to criminally investigate or prosecute any alcohol or drug abuse patient.[facility] HospitalIn the event this information is protected by the Federal Confidentiality of Alcohol and Drug Abuse Patient Records regulations: The Federal rules restrict any use of the information to criminally investigate or prosecute any alcohol or drug abuse patient.[facility] HospitalIn the event this information is protected by the Federal Confidentiality of Alcohol and Drug Abuse Patient Records regulations: The Federal rules restrict any use of the information to criminally investigate or prosecute any alcohol or drug abuse patient.[facility] HospitalIn the event this information is protected by the Federal Confidentiality of Alcohol and Drug Abuse Patient Records regulations: The Federal rules restrict any use of the information to criminally investigate or prosecute any alcohol or drug abuse patient.[facility] HospitalIn the event this information is protected by the Federal Confidentiality of Alcohol and Drug Abuse Patient Records regulations: The Federal rules restrict any use of the information to criminally investigate or prosecute any alcohol or drug abuse patient.[facility] HospitalIn the event this information is protected by the Federal Confidentiality of Alcohol and Drug Abuse Patient Records regulations: The Federal rules restrict any use of the information to criminally investigate or prosecute any alcohol or drug abuse patient.[facility] HospitalIn the event this information is protected by the Federal Confidentiality of Alcohol and Drug Abuse Patient Records regulations: The Federal rules restrict any use of the information to criminally investigate or prosecute any alcohol or drug abuse patient.[facility] HospitalIn the event this information is protected by the Federal Confidentiality of Alcohol and Drug Abuse Patient Records regulations: The Federal rules restrict any use of the information to criminally investigate or prosecute any alcohol or drug abuse patient.[facility] HospitalIn the event this information is protected by the Federal Confidentiality of Alcohol and Drug Abuse Patient Records regulations: The Federal rules restrict any use of the information to criminally investigate or prosecute any alcohol or drug abuse patient.[facility] HospitalIn the event this information is protected by the Federal Confidentiality of Alcohol and Drug Abuse Patient Records regulations: The Federal rules restrict any use of the information to criminally investigate or prosecute any alcohol or drug abuse patient.[facility] HospitalIn the event this information is protected by the Federal Confidentiality of Alcohol and Drug Abuse Patient Records regulations: The Federal rules restrict any use of the information to criminally investigate or prosecute any alcohol or drug abuse patient.[facility] HospitalIn the event this information is protected by the Federal Confidentiality of Alcohol and Drug Abuse Patient Records regulations: The Federal rules restrict any use of the information to criminally investigate or prosecute any alcohol or drug abuse patient.[facility] HospitalIn the event this information is protected by the Federal Confidentiality of Alcohol and Drug Abuse Patient Records regulations: The Federal rules restrict any use of the information to criminally investigate or prosecute any alcohol or drug abuse patient.[facility] HospitalIn the event this information is protected by the Federal Confidentiality of Alcohol and Drug Abuse Patient Records regulations: The Federal rules restrict any use of the information to criminally investigate or prosecute any alcohol or drug abuse patient.[facility] HospitalIn the event this information is protected by the Federal Confidentiality of Alcohol and Drug Abuse Patient Records regulations: The Federal rules restrict any use of the information to criminally investigate or prosecute any alcohol or drug abuse patient.[facility] HospitalIn the event this information is protected by the Federal Confidentiality of Alcohol and Drug Abuse Patient Records regulations: The Federal rules restrict any use of the information to criminally investigate or prosecute any alcohol or drug abuse patient.[facility] HospitalIn the event this information is protected by the Federal Confidentiality of Alcohol and Drug Abuse Patient Records regulations: The Federal rules restrict any use of the information to criminally investigate or prosecute any alcohol or drug abuse patient.[facility] HospitalIn the event this information is protected by the Federal Confidentiality of Alcohol and Drug Abuse Patient Records regulations: The Federal rules restrict any use of the information to criminally investigate or prosecute any alcohol or drug abuse patient.[facility] HospitalIn the event this information is protected by the Federal Confidentiality of Alcohol and Drug Abuse Patient Records regulations: The Federal rules restrict any use of the information to criminally investigate or prosecute any alcohol or drug abuse patient.[facility] HospitalIn the event this information is protected by the Federal Confidentiality of Alcohol and Drug Abuse Patient Records regulations: The Federal rules restrict any use of the information to criminally investigate or prosecute any alcohol or drug abuse patient.[facility] HospitalIn the event this information is protected by the Federal Confidentiality of Alcohol and Drug Abuse Patient Records regulations: The Federal rules restrict any use of the information to criminally investigate or prosecute any alcohol or drug abuse patient.[facility] HospitalIn the event this information is protected by the Federal Confidentiality of Alcohol and Drug Abuse Patient Records regulations: The Federal rules restrict any use of the information to criminally investigate or prosecute any alcohol or drug abuse patient.[facility] HospitalIn the event this information is protected by the Federal Confidentiality of Alcohol and Drug Abuse Patient Records regulations: The Federal rules restrict any use of the information to criminally investigate or prosecute any alcohol or drug abuse patient.[facility] HospitalIn the event this information is protected by the Federal Confidentiality of Alcohol and Drug Abuse Patient Records regulations: The Federal rules restrict any use of the information to criminally investigate or prosecute any alcohol or drug abuse patient.[facility] HospitalIn the event this information is protected by the Federal Confidentiality of Alcohol and Drug Abuse Patient Records regulations: The Federal rules restrict any use of the information to criminally investigate or prosecute any alcohol or drug abuse patient.[facility] HospitalIn the event this information is protected by the Federal Confidentiality of Alcohol and Drug Abuse Patient Records regulations: The Federal rules restrict any use of the information to criminally investigate or prosecute any alcohol or drug abuse patient.[facility] HospitalIn the event this information is protected by the Federal Confidentiality of Alcohol and Drug Abuse Patient Records regulations: The Federal rules restrict any use of the information to criminally investigate or prosecute any alcohol or drug abuse patient.[facility] HospitalIn the event this information is protected by the Federal Confidentiality of Alcohol and Drug Abuse Patient Records regulations: The Federal rules restrict any use of the information to criminally investigate or prosecute any alcohol or drug abuse patient.[facility] HospitalIn the event this information is protected by the Federal Confidentiality of Alcohol and Drug Abuse Patient Records regulations: The Federal rules restrict any use of the information to criminally investigate or prosecute any alcohol or drug abuse patient.[facility] HospitalIn the event this information is protected by the Federal Confidentiality of Alcohol and Drug Abuse Patient Records regulations: The Federal rules restrict any use of the information to criminally investigate or prosecute any alcohol or drug abuse patient.[facility] HospitalIn the event this information is protected by the Federal Confidentiality of Alcohol and Drug Abuse Patient Records regulations: The Federal rules restrict any use of the information to criminally investigate or prosecute any alcohol or drug abuse patient.[facility] HospitalIn the event this information is protected by the Federal Confidentiality of Alcohol and Drug Abuse Patient Records regulations: The Federal rules restrict any use of the information to criminally investigate or prosecute any alcohol or drug abuse patient.[facility] HospitalIn the event this information is protected by the Federal Confidentiality of Alcohol and Drug Abuse Patient Records regulations: The Federal rules restrict any use of the information to criminally investigate or prosecute any alcohol or drug abuse patient.[facility] HospitalIn the event this information is protected by the Federal Confidentiality of Alcohol and Drug Abuse Patient Records regulations: The Federal rules restrict any use of the information to criminally investigate or prosecute any alcohol or drug abuse patient.[facility] HospitalIn the event this information is protected by the Federal Confidentiality of Alcohol and Drug Abuse Patient Records regulations: The Federal rules restrict any use of the information to criminally investigate or prosecute any alcohol or drug abuse patient.[facility] HospitalIn the event this information is protected by the Federal Confidentiality of Alcohol and Drug Abuse Patient Records regulations: The Federal rules restrict any use of the information to criminally investigate or prosecute any alcohol or drug abuse patient.[facility] HospitalIn the event this information is protected by the Federal Confidentiality of Alcohol and Drug Abuse Patient Records regulations: The Federal rules restrict any use of the information to criminally investigate or prosecute any alcohol or drug abuse patient.[facility] HospitalIn the event this information is protected by the Federal Confidentiality of Alcohol and Drug Abuse Patient Records regulations: The Federal rules restrict any use of the information to criminally investigate or prosecute any alcohol or drug abuse patient.[facility] HospitalIn the event this information is protected by the Federal Confidentiality of Alcohol and Drug Abuse Patient Records regulations: The Federal rules restrict any use of the information to criminally investigate or prosecute any alcohol or drug abuse patient.[facility] HospitalIn the event this information is protected by the Federal Confidentiality of Alcohol and Drug Abuse Patient Records regulations: The Federal rules restrict any use of the information to criminally investigate or prosecute any alcohol or drug abuse patient.[facility] HospitalIn the event this information is protected by the Federal Confidentiality of Alcohol and Drug Abuse Patient Records regulations: The Federal rules restrict any use of the information to criminally investigate or prosecute any alcohol or drug abuse patient.[facility] HospitalIn the event this information is protected by the Federal Confidentiality of Alcohol and Drug Abuse Patient Records regulations: The Federal rules restrict any use of the information to criminally investigate or prosecute any alcohol or drug abuse patient.[facility] HospitalIn the event this information is protected by the Federal Confidentiality of Alcohol and Drug Abuse Patient Records regulations: The Federal rules restrict any use of the information to criminally investigate or prosecute any alcohol or drug abuse patient.[facility] HospitalIn the event this information is protected by the Federal Confidentiality of Alcohol and Drug Abuse Patient Records regulations: The Federal rules restrict any use of the information to criminally investigate or prosecute any alcohol or drug abuse patient.[facility] HospitalIn the event this information is protected by the Federal Confidentiality of Alcohol and Drug Abuse Patient Records regulations: The Federal rules restrict any use of the information to criminally investigate or prosecute any alcohol or drug abuse patient.[facility] HospitalIn the event this information is protected by the Federal Confidentiality of Alcohol and Drug Abuse Patient Records regulations: The Federal rules restrict any use of the information to criminally investigate or prosecute any alcohol or drug abuse patient.[facility] HospitalIn the event this information is protected by the Federal Confidentiality of Alcohol and Drug Abuse Patient Records regulations: The Federal rules restrict any use of the information to criminally investigate or prosecute any alcohol or drug abuse patient.[facility] HospitalIn the event this information is protected by the Federal Confidentiality of Alcohol and Drug Abuse Patient Records regulations: The Federal rules restrict any use of the information to criminally investigate or prosecute any alcohol or drug abuse patient.[facility] HospitalIn the event this information is protected by the Federal Confidentiality of Alcohol and Drug Abuse Patient Records regulations: The Federal rules restrict any use of the information to criminally investigate or prosecute any alcohol or drug abuse patient.[facility] HospitalIn the event this information is protected by the Federal Confidentiality of Alcohol and Drug Abuse Patient Records regulations: The Federal rules restrict any use of the information to criminally investigate or prosecute any alcohol or drug abuse patient.[facility] HospitalIn the event this information is protected by the Federal Confidentiality of Alcohol and Drug Abuse Patient Records regulations: The Federal rules restrict any use of the information to criminally investigate or prosecute any alcohol or drug abuse patient.[facility] HospitalIn the event this information is protected by the Federal Confidentiality of Alcohol and Drug Abuse Patient Records regulations: The Federal rules restrict any use of the information to criminally investigate or prosecute any alcohol or drug abuse patient.[facility] HospitalIn the event this information is protected by the Federal Confidentiality of Alcohol and Drug Abuse Patient Records regulations: The Federal rules restrict any use of the information to criminally investigate or prosecute any alcohol or drug abuse patient.[facility] HospitalIn the event this information is protected by the Federal Confidentiality of Alcohol and Drug Abuse Patient Records regulations: The Federal rules restrict any use of the information to criminally investigate or prosecute any alcohol or drug abuse patient.[facility] HospitalIn the event this information is protected by the Federal Confidentiality of Alcohol and Drug Abuse Patient Records regulations: The Federal rules restrict any use of the information to criminally investigate or prosecute any alcohol or drug abuse patient.[facility] HospitalIn the event this information is protected by the Federal Confidentiality of Alcohol and Drug Abuse Patient Records regulations: The Federal rules restrict any use of the information to criminally investigate or prosecute any alcohol or drug abuse patient.[facility] HospitalIn the event this information is protected by the Federal Confidentiality of Alcohol and Drug Abuse Patient Records regulations: The Federal rules restrict any use of the information to criminally investigate or prosecute any alcohol or drug abuse patient.[facility] HospitalIn the event this information is protected by the Federal Confidentiality of Alcohol and Drug Abuse Patient Records regulations: The Federal rules restrict any use of the information to criminally investigate or prosecute any alcohol or drug abuse patient.[facility] HospitalIn the event this information is protected by the Federal Confidentiality of Alcohol and Drug Abuse Patient Records regulations: The Federal rules restrict any use of the information to criminally investigate or prosecute any alcohol or drug abuse patient.[facility] HospitalIn the event this information is protected by the Federal Confidentiality of Alcohol and Drug Abuse Patient Records regulations: The Federal rules restrict any use of the information to criminally investigate or prosecute any alcohol or drug abuse patient.[facility] HospitalIn the event this information is protected by the Federal Confidentiality of Alcohol and Drug Abuse Patient Records regulations: The Federal rules restrict any use of the information to criminally investigate or prosecute any alcohol or drug abuse patient.[facility] HospitalIn the event this information is protected by the Federal Confidentiality of Alcohol and Drug Abuse Patient Records regulations: The Federal rules restrict any use of the information to criminally investigate or prosecute any alcohol or drug abuse patient.[facility] HospitalIn the event this information is protected by the Federal Confidentiality of Alcohol and Drug Abuse Patient Records regulations: The Federal rules restrict any use of the information to criminally investigate or prosecute any alcohol or drug abuse patient.[facility] HospitalIn the event this information is protected by the Federal Confidentiality of Alcohol and Drug Abuse Patient Records regulations: The Federal rules restrict any use of the information to criminally investigate or prosecute any alcohol or drug abuse patient.[facility] HospitalIn the event this information is protected by the Federal Confidentiality of Alcohol and Drug Abuse Patient Records regulations: The Federal rules restrict any use of the information to criminally investigate or prosecute any alcohol or drug abuse patient.[facility] HospitalIn the event this information is protected by the Federal Confidentiality of Alcohol and Drug Abuse Patient Records regulations: The Federal rules restrict any use of the information to criminally investigate or prosecute any alcohol or drug abuse patient.[facility] HospitalIn the event this information is protected by the Federal Confidentiality of Alcohol and Drug Abuse Patient Records regulations: The Federal rules restrict any use of the information to criminally investigate or prosecute any alcohol or drug abuse patient.[facility] HospitalIn the event this information is protected by the Federal Confidentiality of Alcohol and Drug Abuse Patient Records regulations: The Federal rules restrict any use of the information to criminally investigate or prosecute any alcohol or drug abuse patient.[facility] HospitalIn the event this information is protected by the Federal Confidentiality of Alcohol and Drug Abuse Patient Records regulations: The Federal rules restrict any use of the information to criminally investigate or prosecute any alcohol or drug abuse patient.[facility] HospitalIn the event this information is protected by the Federal Confidentiality of Alcohol and Drug Abuse Patient Records regulations: The Federal rules restrict any use of the information to criminally investigate or prosecute any alcohol or drug abuse patient.[facility] HospitalIn the event this information is protected by the Federal Confidentiality of Alcohol and Drug Abuse Patient Records regulations: The Federal rules restrict any use of the information to criminally investigate or prosecute any alcohol or drug abuse patient.[facility] HospitalIn the event this information is protected by the Federal Confidentiality of Alcohol and Drug Abuse Patient Records regulations: The Federal rules restrict any use of the information to criminally investigate or prosecute any alcohol or drug abuse patient.[facility] HospitalIn the event this information is protected by the Federal Confidentiality of Alcohol and Drug Abuse Patient Records regulations: The Federal rules restrict any use of the information to criminally investigate or prosecute any alcohol or drug abuse patient.[facility] HospitalIn the event this information is protected by the Federal Confidentiality of Alcohol and Drug Abuse Patient Records regulations: The Federal rules restrict any use of the information to criminally investigate or prosecute any alcohol or drug abuse patient.[facility] HospitalIn the event this information is protected by the Federal Confidentiality of Alcohol and Drug Abuse Patient Records regulations: The Federal rules restrict any use of the information to criminally investigate or prosecute any alcohol or drug abuse patient.[facility] HospitalIn the event this information is protected by the Federal Confidentiality of Alcohol and Drug Abuse Patient Records regulations: The Federal rules restrict any use of the information to criminally investigate or prosecute any alcohol or drug abuse patient.[facility] HospitalIn the event this information is protected by the Federal Confidentiality of Alcohol and Drug Abuse Patient Records regulations: The Federal rules restrict any use of the information to criminally investigate or prosecute any alcohol or drug abuse patient.[facility] HospitalIn the event this information is protected by the Federal Confidentiality of Alcohol and Drug Abuse Patient Records regulations: The Federal rules restrict any use of the information to criminally investigate or prosecute any alcohol or drug abuse patient.[facility] HospitalIn the event this information is protected by the Federal Confidentiality of Alcohol and Drug Abuse Patient Records regulations: The Federal rules restrict any use of the information to criminally investigate or prosecute any alcohol or drug abuse patient.[facility] HospitalIn the event this information is protected by the Federal Confidentiality of Alcohol and Drug Abuse Patient Records regulations: The Federal rules restrict any use of the information to criminally investigate or prosecute any alcohol or drug abuse patient.[facility] HospitalIn the event this information is protected by the Federal Confidentiality of Alcohol and Drug Abuse Patient Records regulations: The Federal rules restrict any use of the information to criminally investigate or prosecute any alcohol or drug abuse patient.[facility] HospitalIn the event this information is protected by the Federal Confidentiality of Alcohol and Drug Abuse Patient Records regulations: The Federal rules restrict any use of the information to criminally investigate or prosecute any alcohol or drug abuse patient.[facility] HospitalIn the event this information is protected by the Federal Confidentiality of Alcohol and Drug Abuse Patient Records regulations: The Federal rules restrict any use of the information to criminally investigate or prosecute any alcohol or drug abuse patient.[facility] HospitalIn the event this information is protected by the Federal Confidentiality of Alcohol and Drug Abuse Patient Records regulations: The Federal rules restrict any use of the information to criminally investigate or prosecute any alcohol or drug abuse patient.[facility] HospitalIn the event this information is protected by the Federal Confidentiality of Alcohol and Drug Abuse Patient Records regulations: The Federal rules restrict any use of the information to criminally investigate or prosecute any alcohol or drug abuse patient.[facility] Reason for Visit (unrecogniz ed section and content) Reason Comments Appointment Reason Comments Insurance Authorization Reason Comments Orders Reason Comments Medicare Wellness Exam Reason Comments Consult Consult [facility] Reason Comments Results EGD results - [...] Date Comments Population Health Navigation Outreach 08/25/2023 [facility] AWV Reason Comments Radiology CT Specialty Diagnoses / Procedures Referred By Sarkis t Referred To Contact CT IMAGING Diagnoses Other specified disorders of kidney and ureter Kidney lesion Procedures CT KIDNEY WO/W IVCON CT ABDOMEN W & W/O CONTRAST Valeriano Beasley MD [address] [place] [address] [place] [id number] Referral ID Status Reason Start Date Expiration Date V isits Requested Visits Authorized [id number] Closed Auto-Generate d Referral 08/21/2023 09/19/2024 1 1 Reason Comments Outside Orthopedics Reason Comments outside imaging Reason Comments Outside Cardiology labs Reason Comments [facility] Reason Onset Date Comments Refill Request 09/25/2023 Reason Comments Outside Echo US Reason Onset Date Comments Population Health Navigation Outreach 10/14/2023 [facility] Annual Wellness Visit Reason Comments Orders labs Reason Comments Ext / Nuclear Stress Test Reason Comments Patient Question Reason Comments New Patient New patient. Pt repo rted bilateral numbness, weakness hands, feet x2 yrs. Specialty Diagnoses / Procedures Referred By Contac t Referred To Contact Neurology Diagnoses Balance problems Procedures CONSULT TO NEUROLOGY OFFICE/OUTPATIENT [facility] 60 MINUTES Suzanna Dawson PA-C [address] [facility] [place] [id number] Referral ID Status Reason Start Date Expiration Date V isits Requested Visits Authorized [id number] Closed PCP Requested Referral 2023 10/18/2024 1 1 Reason Onset Date Comments Refill Request 01/08/2024 Reason Comments Outside Cardiology Specialty Diagnoses / Procedures Referred By Contac t Referred To Contact MR IMAGING Diagnoses Other symptoms and signs involving the nervous system Procedures MRA CAROTID WO IVCON MRA, NECK; W/O CONTRAST Patria Khanna Jr., MD [facility] [place] [address] [place] [address] Referral ID Status Reason Start Date Expiration Date V isits Requested Visits Authorized [id number] Closed Auto-Generate d Referral 01/01/2024 01/30/2025 1 1 Specialty Diagnoses / Procedures Referred By Contac t Referred To Contact MR IMAGING Diagnoses Other symptoms and signs involving the nervous system Procedures MRA BRAIN WO IVCON MRA, HEAD W/O CONTRAST Patria Khanna Jr., MD [facility] [facility] [address] [place] [address] [place] [id number] Referral ID Status Reason Start Date Expiration Date V isits Requested Visits Authorized [id number] Closed Auto-Generate d Referral 01/01/2024 01/30/2025 1 1 Reason Comments Results Specialty Diagnoses / Procedures Referred By Contac t Referred To Contact CT IMAGING Diagnoses Occlusion and stenosis of unspecified carotid artery Procedures CTA NECK W IVCON CT ANGIOGRAPHY NECK W/CONTRAST/NONCONTRAST Patria Khanna Jr., MD [facility] [address] [place] [address] [place] [address] Referral ID Status Reason Start Date Expiration Date V isits Requested Visits Authorized [id number] Closed Auto-Generate d Referral 02/07/2024 03/08/2025 1 [...] subsequent encounter Procedures CONSULT TO ALLERGY/IMMUNOLOGY OFFICE/OUTPATIENT [facility] 60 [place] [address] [place] [address] Referral ID Status Reason Start Date Expiration Date V isits Requested Visits Authorized [id number] Closed PCP Requested Referral 07/31/2024 07/31/2025 1 1 Reason Comments Established Patient Balance problems, pt states balance is ok some days, neuropathy worsening Reason Comments Abnormal Lab Specialty Diagnoses / Procedures Referred By Contac t Referred To Contact Rheumatology Diagnoses Positive GALLO (antinuclear antibody) Procedures CONSULT TO RHEUM/IMMUN DISEASE OFFICE/OUTPATIENT [facility] 60 MINUTES Patria Khanna Jr., MD [address] [place] [address] Phone: tel: fax: Referral ID Status Reason Start Date Expiration Date V isits Requested Visits Authorized [id number] Closed PCP Requested Referral 08/30/2024 08/30/2025 1 1 Reason Comments Outside Imaging Reason Comments Outside [id number] Ordered Reason Comments Results Outside labs Reason Comments Outside Imaging Urology Reason Comments New Patient Reason Comments Established Patient Reason Comments 6 Month Exam Reason Comments Radiology US Specialty Diagnoses / Procedures Referred By Contac t Referred To Contact US IMAGING Diagnoses Screening for abdominal aortic aneurysm Procedures US SCREENING FOR AAA US ABDOMINAL AORTA REAL TIME SCREEN STUDY AAA Ni Sauceda, SUNIL.[employer]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 [address] [phone] Phone: tel: fax: [place] [address] Referral ID Status Reason Start Date Expiration Date V isits Requested Visits Authorized [id number] Closed Auto-Generate d Referral 11/01/2024 12/01/2025 1 [...] Role: Primary Care Physician Address: Address: [address] [place] [address]- Care Team Related Persons Name: KALINPRICEJOSE AU Goals (unrecognized section and content) Goals may be documented in a n alternate section (unrecognized sect ion and content) No Status Records FoundNo Status Records FoundNo Status Records FoundNo Status Records Found INFORMATION SOURCE (unrecogn ized section and content) DATE CREATED AUTHOR 01/03/2023 [facility] ([facility]) DATE CREATED AUTHOR AUTHOR'S ORGANIZ ATION 08/11/2023 [facility] DATE CREATED AUTHOR AUTHOR'S ORGANIZ ATION 01/03/2025 [facility] DATE CREATED AUTHOR AUTHOR'S ORGANIZ ATION 01/13/[address] [facility] FOR RECORDS PERTAINING TO PATIENTS [...] BE BASED ON THE PRIMARY CLINICAL RECORDS. [facility]. provides no warranty or guarantee of the accuracy or completeness of information in this document.
[2025-01-23 23:43] LABS: Ferritin 101 ng/mL (37-417); Vitamin B12 1003 pg/mL (180-914)
--- OUTSIDE RECORDS SUMMARY | 2025-01-23 23:43 | XMS RPT_ITS | CCD ---
Author Organization [facility] Care Team Providers Care Stem Roller Name Role Phone VALERIANO BEASLEY MD Primary [...] Unavailable Dr. Valeriano Beasley Referring Provider Edilberto CLINICAL DIETICIAN, CLINICAL DIETICIAN-C Xochilt Estrada Attending Provider YUSRA LUNA, TESSA [...] Provider Dr. Lukas Cuevas Attending Provider Price CLINICAL DIETICIAN, CLINICAL DIETICIAN-C Estefany Attending Provider Dr. Valeriano Beasley Primary Care Provider Dr. Valeriano Beasley Referring Provider Dr. José Miguel Valverde Attending Provider Dr. Lukas Cuevas Attending Provider Price GRANDE, FAUSTO Allison Attending Provider Dr. Alexi Jaime Attending Provider Gale LUNA, Valeriano Stanford Primary Care Provider Suzan TELEVISION SERVICE ENGINEER.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 MANAGER, Ni Unavailable Samir JOHNSON, Suzanna Unavailable Carrie Magana MD, Patria Solis Unavailable Gale LUNA, Dr. Bal Primary Care Provider Dr. Stan Gilbert DO Attending Provider Vladimir FLORES, Dr. Pierce Emergency Provider Francis LUNA, Dr. Jalloh Attending Provider Francis LUNA, Dr. Jalloh Referring Provider Gale LUNA, Dr. Bal Referring Provider Anderson LUNA, Dr. Geovani Martines Attending Provider [phone] Anderson LUNA, Dr. Geovani Martines Referring Provider Estefany Cool Attending Provider Suzan TELEVISION SERVICE ENGINEER.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 MANAGER, Ni Unavailable Samir JOHNSON, Suzanna Unavailable Gale [...] Provider Penny LUNA, Dr. Hoang Other Provider [phone] Kay LUNA, Dr. Celaya Other Provider Everett LUNA, Dr. Lala Other Provider [phone] Sarkis LUNA, Dr. Reyes Other Provider [phone] Tomas LUNA, Dr. Fernandez Other Provider Xiao LUNA, Dr. Hall Other Provider Samantha LUNA, Dr. Hammer Other Provider Unavailabl courtney Conde MD, Dr. Lutz Other Provider [phone] Yovani LUNA, Dr. Villaseñor Other Provider Smooth LUNA, Dr. Bauer Other Provider Edwige LUNA, Dr. Russell Other Provider Denisa FLORES, Dr. Grayson Other Provider Luisana LUNA, Dr. Henry Other Provider [phone] Eliazar LUNA, Dr. Tong Other Provider [phone] rGegory Hernandez DO Other Provider Louis LUNA, Dr. [...] Unavailable GALE, VALERIANO A Primary Care Unavailable SUAZNNA DAWSON Referring Unavailable KHANNAPATRIA ALVAREZ JR Referring [...] Primary Care Unavailable LIZA NYLA Referring Unavailable GLAE, VALERIANO A Primary Care Unavailable MASCI, STEPHANIE A Referring Unavailable Knoble TELEVISION SERVICE ENGINEER.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 MANAGER, Ni Unavailable Suzanna Dawson PA-C Unavailable [phone] Flakita Florentino Attending Unavailable Gale, Valeriano Primary Care Unavailable Gale, Valeriano Primary Care Unavailable Geovani Barron Attending Unavailable Geovani Barron [facility] Geovani Barron Referring Unavailable Geovani Barron Attending Unavailable Tony Shultz Consulting Unavailable [facility] Unavailable Alexi Olivas Attending Unavailable Flakita Florentino Admitting Unavailable Shantal, Ej Consulting Unavailable Ricci Ballesterso Consulting Unavailable Homer Guzman Consulting Unavailable Tessa [...] Blanco Attending Unavailable Francis, Shubham Referring Unavailable [facility] Unavailable Shubham Blanco Attending Unavailable Francis, Shubham Referring Unavailable [facility] Unavailable [facility] Unavailable Suzanna Goodman Attending Unavailable Suzanna Goodman Referring Unavailable [facility] Unavailable Geovani Barron Referring Unavailable Geovani Barron Attending Unavailable [facility] Unavailable Alexi Olivas Attending Unavailable [...] Kasi Consulting Unavailable Irukulla, Juancarlos Consulting Unavailable Dewige, Drew Consulting Unavailable Dhesi, Kenan Consulting Unavailable Lieberman, Sujoy Consulting Unavailable [place], [place] Consulting Unavailable Ferbossman, Gregory Consulting Unavailable Louis, Mohit Consulting Unavailable Patria Crowe Consulting Unavailable Flakita Florentino Consulting Unavailable Shubham Blanco Attending Unavailable Shubham Blanco Referring Unavailable Gale, Valeriano Primary Care Unavailable Gale, Valeriano Primary Care Unavailable Stan Gilbert Attending Unavailable Gale, Valeriano Primary Care Unavailable Luis Frakn Attending Unavailable Alexi Olivas Referring Unavailable Homer [...] LUNA, Dr. Geovani Martines Attending Provider [phone] Anderson LUNA, Dr. Geovani Martines Referring Provider [phone] Gale LUNA, Dr. Bal Referring Provider Dr. Shubham Blanco MD Attending Provider Francis LUNA, Dr. Jalloh Referring Provider Dr. Alexi Olivas DO Referring Provider Dr. Jae Mcclure MD Emergency Provider Dr. Tsesa Hampton DO Admit Provider Unavail able Dr. Tessa Hampton DO Attending Provider Unav ailable Allergies Allergy Classification Reported Allergen(s) Allergy Type Date of Onset Reaction(s) Facility (20 sources) hydroCHLOROthiazide; Translations: [hydrochlorothiazide] Drug Allergy 008 Unknown [facility] Work Phone: Comment on above: rash (20 sources) environmental [Other] Propensity to adverse reactions 008 Unknown [facility] Work Phone: (20 sources) Angiotensin II receptor antagonist; Translations: [ARB-ANGIOTENSIN RECEPTOR ANTAGONIST] Drug Intolerance Other: See Comments [facility] (20 sources) Sertraline; Translations: [SERTRALINE] Drug Allergy Other: See Comments [facility] (7 sources) Losartan Drug Allergy 024 Angioedema [facility] (1 source) hydroCHLOROthiazide Drug Allergy [facility] Repository (1 source) Losartan Drug Allergy [facility] Repository Medications Current Medications Medication Drug [...] 5,000 Units by mouth once daily. Co Q18-Esmi Oil-Waldo 3-E (4 sources) Start: 03-25-2022 Co R40-Grid Oil-Waldo 3-E Active CAP PO March 24, 2022 11:00pm Start: 03-25-2022 Co M15-Pijm Oi l-Waldo 3-E Active CAP PO March 25, 2022 [...] on above: Take 1 capsule by mo [facility] daily at bedtime. [id number] 0.3 ml EPINEPHrine 1 mg/ml auto-injector (5 [...] Comment on above: Take 1 tablet by [facility] once daily. fexofenadine hydrochloride 180 [...] 1 tablet by alison th once daily. Audbfgqnjcgy-Caz-Oe on-Fa-Vit K (Adults Multivitamin) 18 mg iron-400 mcg-25 mcg Tablet (4 sources) Start: 03-25-2022 take 1 tablet by mouth once Rnisaidpnylh-Spj-Hhe n-Fa-Vit K (Adults Multivitamin) 18 mg iron-400 mcg-25 mcg Tablet Active TABLET PO March 24, 2022 11:00pm Start: 03-25-2022 take 1 tablet by alison th once Lkxzwlngwbnp-Zla-Hmmy-Fa-Vit K (Adults Multivitamin) 18 mg iron-400 mcg-25 [...] pain, # 100 tab(s), 2 Refill(s), Pharmacy: [facility]/pharmacy #[id number], 177.8, cm, 11/29/21 16:55:00 EDT, Height Start Date: 12/01/21 Status: Ordered Comment on above: Dissolve 1 tablet un miesha the tongue every 5 minutes as needed for chest pain. Waldo 9-Hio-Jup-Fish Oil (2 sources) Start: 09-01-2023 Waldo 5-Wwt-Qcd-Fish Oil Active CAP PO September 01, 2023 1:00am Start: 09-01-2023 Waldo 3-Dha-Ep a-Fish Oil Active CAP PO September 01, 2023 12:00am Waldo 8-Clt-Nju-Fish Oil 100-400-1,000 mg capsule (7 sources) Start: 09-01-2023 take 100-400 capsules by mouth once daily as needed Waldo 9-Eew-Pvq-Fish Oil 100-400-1,000 mg capsule Active 1 NMA PO DAILY as needed for supplement September 01, 2023 1:00am Start: 09-01-2023 Waldo 3-Dha-Ep a-Fish Oil 100-400-1,000 mg capsule Active [...] BID, # 60 tab(s), 5 Refill(s), Pharmacy: [facility]/pharmacy #[id number], 177.8, cm, 01/27/22 6:11:00 EDT, Height, [...] Ordered Start: 09-27-2021 take 2 tablets by [facility] once daily atenolol (TENORMIN) 50 mg tablet Take 2 tablets by mouth once daily. 180 tablet 1 09/27/2021 Active Start: 05-30-2013 take 1 mg by mouth once daily Atenolol Active MG PO DAILY May 30, 2013 12:00am Comment on above: Take 2 tablets by [facility] once daily. [facility] BD ASSURE BPM-AUTO ARM CUFF [...] qDay, # 30 tab(s), 3 Refill(s), Pharmacy: [facility]/pharmacy #[id number], 175.3, cm, 12/28/21 11:24:00 EDT, Height [...] Start: 03-25-2022 take 1 capsule by mo [facility] at bedtime Diphenhydramine Hcl (Benadryl) 25 mg [...] q12h, # 60 tab(s), 6 Refill(s), Pharmacy: [facility]/pharmacy #[id number], 177.8, cm, 11/29/21 16:55:00 EDT, Height [...] Coronary atherosclerosis; Translations: [Atherosclerotic heart disease of [place] coronary artery without angina pectoris] Onset: 2 [...] status 11-01-2024 Unclassified (2 sources) Please call [phone] to schedule the follow up appt. 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; Translations: [Medication management] Onset: [...] Auto (Unsp spec) [#/Vol] 0.86 10*3/uL 0.83-4.51 [facility] Absolute neutrophil countOrd ered By: ED PROVIDER on 01-23-2025 Neutrophils (Bld) [#/Vol] 3.1 10*3/uL 2.0-7.7 [facility] Anion gap in Serum or Plasma Ordered By: ED PROVIDER on 01-23-2025 Anion gap [Moles/Vol] 13 mmol/L 5-15 [facility] Automated lymphocyte count a s percentage of total leukocytesOrdered By: ED PROVIDER on 01-23-2025 Lymphocytes/100 WBC Auto (Unsp spec) 16.0 % Low 19-41 [facility] BUN/creatinine ratioOrdered By: ED PROVIDER on 01-23-2025 Urea nitrogen/Creatinine [Mass ratio] 15.1 mg/mg 10-20 [facility] Basophil percentageOrdered B y: ED PROVIDER on 01-23-2025 Basophils/100 WBC (Bld) 0.7 % 0-1 [facility] Bilirubin Test strip Ql (U)O rdered By: Jae Mcclure on 01-23-2025 Bilirubin Ql (U) Negative Negative [facility] Bilirubin, totalOrdered By: ED PROVIDER on 01-23-2025 Bilirubin [Mass/Vol] 0.74 mg/dL 0.00-1.30 [facility] Carbon dioxide, total [Moles /volume] in Central venous bloodOrdered By: ED PROVIDER on 01-23-2025 CO2 [Moles/Vol] 19.9 mmol/L Low 21.0-32.0 [facility] Chloride assayOrdered By: ED PROVIDER on 01-23-2025 Chloride [Moles/Vol] 107 mmol/L 98-108 [facility] Eosinophil percentageOrdered By: ED PROVIDER on 01-23-2025 Eosinophils/100 WBC (Bld) 10.6 % High 0-5 [facility] Erythrocyte distribution wid th ratioOrdered By: ED PROVIDER on 01-23-2025 Erythrocyte distribution width (RBC) [Ratio] 13.8 % 11.6-14.6 [facility] Erythrocyte distribution wid th standard deviationOrdered By: ED PROVIDER on 01-23-2025 Erythrocyte distribution width (RBC) [Ratio] 53.4 fl High 35.1-43.9 [facility] Glomerular filtration rate ( GFR) estimation/1.73 sq m using serum, plasma, or whole bOrdered By: ED PROVIDER on 01-23-2025 GFR/1.73 sq M.predicted among non-blacks MDRD (S/P/Bld) [Vol rate/Area] 92 mL/min/{1.73_m2} >60 [facility] Comment on above: mL/min/1.73m2 CKD-EP I Creatinine Equation (2020) Hematocrit Auto (Bld) [Volum e fraction]Ordered By: ED PROVIDER on 01-23-2025 Hematocrit (Bld) [Volume fraction] 31.0 % Low 40-54 [facility] Hemoglobin measurementOrdere d By: ED PROVIDER on 01-23-2025 Hemoglobin (Bld) [Mass/Vol] 10.5 g/dL Low 13.0-16.5 [facility] Immature granulocytes/100 WB C Auto (Bld)Ordered By: ED PROVIDER on 01-23-2025 Immature granulocytes/100 WBC (Bld) 0.700 % 0.0-0.9 [facility] Comment on above: IG% - Immature Granu locytes (promyelocytes, myelocytes and metamyelocytes) > 1% indicates that a LEFT SHIFT is Present. Ketones Test strip Ql (U)Ord ered By: Jae Mcclure on 01-23-2025 Ketones Ql (U) Negative Negative [facility] Laboratory - Chemistry and C hemistry - challengeOrdered By: ED PROVIDER on 01-23-2025 AST [Catalytic activity/Vol] 35 U/L <38 [facility] Lipase measurementOrdered By : ED PROVIDER on 01-23-2025 Lipase [Catalytic activity/Vol] 39 U/L 13-75 [facility] Comment on above: Please note:LIPASE r evised reference range effective 22. New Lipase methodology. Expected to produce lower values than the previous assay method. NEW Reference Range: 13 - 75 U/L MCV (mean corpuscular volume ) determinationOrdered By: ED PROVIDER on 01-23-2025 MCV (RBC) [Entitic vol] 106.2 fL High 80-94 [facility] Mean corpuscular hemoglobin (MCH) determinationOrdered By: ED PROVIDER on 01-23-2025 MCH (RBC) [Entitic mass] 36.0 pg High 27.0-32.0 [facility] Mean corpuscular hemoglobin concentration (MCHC) determinationOrdered By: ED PROVIDER on 01-23-2025 MCHC (RBC) [Mass/Vol] 33.9 g/dL 32-36 [facility] Mean platelet volume determi nationOrdered By: ED PROVIDER on 01-23-2025 Platelet mean volume (Bld) [Entitic vol] 9.5 fL 6.2-12.0 [facility] Microscopic analysis of urin e for red blood cells (RBC)Ordered By: Jae Mcclure on 01-23-2025 Microscopic analysis of urine for red blood cells (RBC) 0-5 SEEN /hpf 0-5 [facility] Monocyte percentageOrdered B y: ED PROVIDER on 01-23-2025 Monocytes/100 WBC (Bld) 13.7 % High 0-10 [facility] Mucus LM Ql (Urine sed)Order ed By: Jae Mcclure on 01-23-2025 Mucus Ql (Urine sed) 0 SEEN /hpf [facility] Neutrophil percentageOrdered By: ED PROVIDER on 01-23-2025 Neutrophils/100 WBC (Bld) 58.3 % 47-70 [facility] Nitrite Test strip Ql (U)Ord ered By: Jae Mcclure on 01-23-2025 Nitrite Ql (U) Negative Negative [facility] Nucleated red blood cell per centageOrdered By: ED PROVIDER on 01-23-2025 Nucleated RBC/100 WBC (Bld) [Ratio] 0 % 0-5 [facility] Platelet countOrdered By: ED PROVIDER on 01-23-2025 Platelets (Bld) [#/Vol] 167 10*3/uL 150-450 [facility] Potassium measurement (mass/ volume)Ordered By: ED PROVIDER on 01-23-2025 Potassium (Unsp spec) [Mass/Vol] 3.8 mmol/L 3.3-5.1 [facility] Protein Test strip Ql (U)Ord ered By: Jae Mcclure on 01-23-2025 Protein Ql (U) Negative Negative [facility] RBC Auto (Bld) [#/Vol]Ordere d By: ED PROVIDER on 01-23-2025 RBC (Bld) [#/Vol] 2.92 10*6/uL Low 4.6-6.2 [facility] Serum creatinine measurement (mass/volume)Ordered By: ED PROVIDER on 01-23-2025 Creatinine [Mass/Vol] 0.82 mg/dL 0.70-1.20 [facility] Serum globulin measurementOr dered By: ED PROVIDER on 01-23-2025 Globulin (S) [Mass/Vol] 2.9 g/dL 2.2-4.2 [facility] Serum glucose measurement (m ass/volume)Ordered By: ED PROVIDER on 01-23-2025 Glucose [Mass/Vol] 100 mg/dL High 70-99 [facility] Serum or plasma alanine guevara otransferase (ALT) measurementOrdered By: ED PROVIDER on 01-23-2025 ALT [Catalytic activity/Vol] 30 U/L <47 [facility] Serum or plasma albumin reid urement (mass/volume)Ordered By: ED PROVIDER on 01-23-2025 Albumin [Mass/Vol] 3.8 g/dL 3.4-4.8 [facility] Serum or plasma albumin/glob ulin mass ratioOrdered By: ED PROVIDER on 01-23-2025 Albumin/Globulin [Mass ratio] 1.3 {ratio} 0.9-2.4 [facility] Serum or plasma alkaline adelfo sphatase measurementOrdered By: ED PROVIDER on 01-23-2025 ALP [Catalytic activity/Vol] 103 U/L 40-129 [facility] Serum or plasma calcium reid urement (mass/volume)Ordered By: ED PROVIDER on 01-23-2025 Calcium [Mass/Vol] 9.0 mg/dL 7.6-11.0 [facility] Serum or plasma urea nitroge n measurement (mass/volume)Ordered By: ED PROVIDER on 01-23-2025 Urea nitrogen [Mass/Vol] 12 mg/dL 4-19 [facility] Sodium levelOrdered By: ED P CARLOSVIDER on 01-23-2025 Sodium [Moles/Vol] 140 mmol/L 133-145 [facility] Squamous epithelial cells de tection in urine sediment by light microscopyOrdered By: Jae Mcclure on 01-23-2025 Epithelial cells.squamous LM Ql (Urine sed) 0-5 SEEN /hpf 0-5 [facility] Total proteinOrdered By: ED PROVIDER on 01-23-2025 Protein [Mass/Vol] 6.6 g/dL 5.9-8.4 [facility] Urine clarityOrdered By: Jett Mcclure on 01-23-2025 Clarity (U) Clear Clear [facility] Urine color determinationOrd ered By: Jae Mcclure on 01-23-2025 Color (U) Straw Yellow [facility] Urine glucose detectionOrder ed By: Jae Mcclure on 01-23-2025 Glucose Ql (U) Normal mg/dl Normal [facility] Urine leukocyte esterase det ection by dipstickOrdered By: Jae Mcclure on 01-23-2025 Leukocyte esterase Test strip Ql (U) 100 /ul High Negative [facility] Urine pHOrdered By: Jae boyle on 01-23-2025 pH (U) 6.0 [pH] 5.0 - 8.0 [facility] Urine sediment bacteria coun t by microscopy (number/high power field)Ordered By: Jae Mcclure on 01-23-2025 Bacteria LM.HPF (Urine sed) [#/Area] 0 /[HPF] None Seen [facility] Urine specific gravity measu rementOrdered By: Jae Mcclure on 01-23-2025 Specific gravity (U) [Rel density] 1.015 1.002-1.030 [facility] Urine urobilinogen measureme ntOrdered By: Jae Mcclure on 01-23-2025 Urobilinogen Ql (U) Normal mg/dl Normal [facility] White blood cell (WBC) count Ordered By: ED PROVIDER on 01-23-2025 WBC (Bld) [#/Vol] 5.4 10*3/uL 4.4-11.0 [facility] White blood cell countOrdere d By: Jae Mcclure on 01-23-2025 White blood cell count 10-25 SEEN /hpf 0-5 [facility] Culture, Blood (WB)on 2024 CUB No growth in 5 days. Normal [facility] Comment on above: Performed By: #### L 9000.0800 #### [facility] [address] [place], [address] Immunoglobulin Andrew 5 IMMUNOGLOB E QN 214 IU/mL Normal 6-495 [facility] Comment on above: Result Comment: Perf ormed at: [facility] Lab[address] [id number] Cable Splicer Helper: Zafar Browne MD, Phone: [phone] Performed By: #### L 3400.5105, L3200.1600, L503.7505, L509.700 #### [facility] [address] [place], [address] Tryptaseon 01-02-2025 TRYPTASE 6.8 ug/L Normal 2.2-13.2 [facility] Comment on above: Performed By: #### L 3400.5105, L3200.1600, [id number], L509.7005 #### [facility] [address] [place], [address] CNOVon 01-01-2025 CNOV Office Visit (FAMPWS ) -- NAZARIO HUTTON ([id number]) 1950 M Date Time Provider Department 01/01/25 [...] pharmacy and is scheduled to see an Cop Breaker on January 23. Prozac was discontinued by the hospitalist due to possible correlation with angioedema. 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 Normal [facility] C1 EST Inhibitor, Functional on 12-31-2024 C1 EST INH FUNC 102 Normal . [facility] Comment on above: Result Comment: Resu lt Units: %mean normal Abnormal <41 Equivocal 41 - 67 Normal >67 Performed at: - [address] [id number] Cable Splicer Helper: Zafar Browne MD, Phone: [phone] Performed By: #### L 3400.5105, L3200.1600, L503.9979, L509.5551 #### [facility] [address] [place], [place], [id number] Hepatitis Panel Acuteon 12-22 COMMENT Comment Normal . [facility] Comment on above: Result Comment: Not infected with HCV unless early or acute infection is suspected (which may be delayed in an immunocompromised individual), or other evidence exists to indicate HCV infection. Performed at: - [facility] [id number] Cable Splicer Helper: José Miguel Alba PhD, Phone: [phone] Performed By: #### L 9000.0800 #### [facility] [address] [place], [address] HEP B CORE,IgM Negative Normal Negative [facility] Comment on above: Performed By: #### L 9000.0800 #### [facility] [address] [place], [address] HEP B SURF AG Negative Normal Negative [facility] Comment on above: Performed By: #### L 9000.0800 #### [facility] [address] [place], [address] HEP C VIRUS AB Non-Reactive Normal Non Reactive [facility] Comment on above: Performed By: #### L 9000.0800 #### [facility] [address] [place], [address] HEPATITIS A-IgM Negative Normal Negative [facility] Comment on above: Result Comment: A ne gative anti-HAV IgM result suggests no recent or current HAV infection. Performed By: #### L 9000.0800 #### [facility] [address] [place], [address] Respiratory Cultureon 2024 RESPC see [...] S Vancomycin Islt YOVANY 0.5 S Normal [facility] Comment on above: Performed By: #### L 500.2500, L100.0100 #### [facility] [address] [facility] [place], [place], [id number] Absolute lymphocyte countOrd ered By: Alexi Olivas on 12-30-2024 Lymphocytes Auto (Unsp spec) [#/Vol] 0.45 10*3/uL Low 0.83-4.51 [facility] Absolute neutrophil countOrd ered By: Alexi Olivas on 12-30-2024 Neutrophils (Bld) [#/Vol] 10.5 10*3/uL High 2.0-7.7 [facility] Anion gap in Serum or Plasma Ordered By: Alexi Olivas on 12-30-2024 Anion gap [Moles/Vol] 10 mmol/L 5-15 [facility] Automated lymphocyte count a s percentage of total leukocytesOrdered By: Alexi Olivas on 12-30-2024 Lymphocytes/100 WBC Auto (Unsp spec) 3.8 % Low 19-41 [facility] BUN/creatinine ratioOrdered By: Alexi Olivas on 12-30-2024 Urea nitrogen/Creatinine [Mass ratio] 29.0 mg/mg High 10-20 [facility] Basic Metabolic Profile (BMP )on 12-30-2024 BUN/CRE 29.0 RATIO High 10-20 [facility] Comment on above: Performed By: #### L 500.2500, L100.0100 #### [facility] [address] [place], [address] Calcium [Mass/Vol] 9.0 mg/dL Normal 7.6-11.0 [facility] Comment on above: Performed By: #### L 500.2500, L100.0100 #### [facility] [address] [place], [address] Chloride [Moles/Vol] 107 mmol/L Normal 98-108 [facility] Comment on above: Performed By: #### L 500.2500, L100.0100 #### [facility] [address] [place], [address] CO2 [Moles/Vol] 24.1 mmol/L Normal 21.0-32.0 [facility] Comment on above: Performed By: #### L 500.2500, L100.0100 #### [facility] [address] [place], [address] Creatinine [Mass/Vol] 0.70 mg/dL Normal 0.70-1.20 [facility] Comment on above: Performed By: #### L 500.2500, L100.0100 #### [facility] [address] [place], [address] ECRCL 94.14 ml/min Normal 50-250 [facility] Comment on above: Performed By: #### L 500.2500, L100.0100 #### [facility] [address] [place], [address] GAP 10 Normal 5-15 [facility] Comment on above: Performed By: #### L 500.2500, L100.0100 #### [facility] [address] [place], [address] GFR/1.73 sq M.predicted among non-blacks MDRD (S/P/Bld) [Vol rate/Area] 97 mL/min/{1.73_m2} Normal >60 [facility] Comment on above: Result Comment: mL/m in/1.73m2 CKD-EPI Creatinine Equation (2020) Performed By: #### L 500.2500, L100.0100 #### [facility] [address] [place], [address] Glucose [Mass/Vol] 125 mg/dL High 70-99 [facility] Comment on above: Performed By: #### L 500.2500, L100.0100 #### [facility] [address] [place], [address] Potassium [Moles/Vol] 4.0 mmol/L Normal 3.3-5.1 [facility] Comment on above: Performed By: #### L 500.2500, L100.0100 #### [facility] [address] [place], [address] Sodium [Moles/Vol] 141 mmol/L Normal 133-145 [facility] Comment on above: Performed By: #### L 500.2500, L100.0100 #### [facility] [address] [place], [address] Urea nitrogen [Mass/Vol] 20 mg/dL High 4-19 [facility] Comment on above: Performed By: #### L 500.2500, L100.0100 #### [facility] [address] [place], [address] Basophil percentageOrdered B y: Alexi Olivas on 12-30-2024 Basophils/100 WBC (Bld) 0.2 % 0-1 [facility] CBC W/Diff, Automatedon Absolute Lymph 0.45 X10 3/uL Low 0.83-4.51 [facility] Comment on above: Performed By: #### L 500.2500, L100.0100 #### [facility] [address] [place], [address] Absolute Neut 10.5 X10 3/uL High 2.0-7.7 [facility] Comment on above: Performed By: #### L 500.2500, L100.0100 #### [facility] [address] [place], [address] Basophils/100 WBC (Bld) 0.2 % Normal 0-1 [facility] Comment on above: Performed By: #### L 500.2500, L100.0100 #### [facility] [address] [place], [address] Eosinophils/100 WBC (Bld) 0.0 % Normal 0-5 [facility] Comment on above: Performed By: #### L 500.2500, L100.0100 #### [facility] [address] [place], [address] Erythrocyte distribution width (RBC) [Ratio] 13.7 % Normal 11.6-14.6 [facility] Comment on above: Performed By: #### L 500.2500, L100.0100 #### [facility] [address] [place], [address] Hematocrit (Bld) [Volume fraction] 40.2 % Normal 40-54 [facility] Comment on above: Performed By: #### L 500.2500, L100.0100 #### [facility] [address] [place], [address] Hemoglobin (Bld) [Mass/Vol] 13.5 g/dL Normal 13.0-16.5 [facility] Comment on above: Performed By: #### L 500.2500, L100.0100 #### [facility] [address] [place], [address] IG% 1.000 High 0.0-0.9 [facility] Comment on above: Result Comment: IG% - Immature Granulocytes (promyelocytes, myelocytes and metamyelocytes) > 1% indicates that a LEFT SHIFT is Present. Performed By: #### L 500.2500, L100.0100 #### [facility] [address] [place], [address] Lymphocytes/100 WBC (Bld) 3.8 % Low 19-41 [facility] Comment on above: Performed By: #### L 500.2500, L100.0100 #### [facility] [address] [place], [address] MCH (RBC) [Entitic mass] 35.9 pg High 27.0-32.0 [facility] Comment on above: Performed By: #### L 500.2500, L100.0100 #### [facility] [address] [place], [address] MCHC (RBC) [Mass/Vol] 33.6 g/dL Normal 32-36 [facility] Comment on above: Performed By: #### L 500.2500, L100.0100 #### [facility] [address] [place], [address] MCV (RBC) [Entitic vol] 106.9 fL High 80-94 [facility] Comment on above: Performed By: #### L 500.2500, L100.0100 #### [facility] [address] [place], [address] Monocytes/100 WBC (Bld) 6.4 % Normal 0-10 [facility] Comment on above: Performed By: #### L 500.2500, L100.0100 #### [facility] [address] [place], [address] Neutrophils/100 WBC (Bld) 88.6 % High 47-70 [facility] Comment on above: Performed By: #### L 500.2500, L100.0100 #### [facility] [address] [place], [address] Nucleated RBC (Bld) [#/Vol] 0 10*3/uL Normal 0-5 [facility] Comment on above: Performed By: #### L 500.2500, L100.0100 #### [facility] [address] [place], [address] Platelet mean volume (Bld) [Entitic vol] 9.8 fL Normal 6.2-12.0 [facility] Comment on above: Performed By: #### L 500.2500, L100.0100 #### [facility] [address] [place], [address] Platelets (Bld) [#/Vol] 185 10*3/uL Normal 150-450 [facility] Comment on above: Performed By: #### L 500.2500, L100.0100 #### [facility] [address] [place], [address] RBC (Bld) [#/Vol] 3.76 10*6/uL Low 4.6-6.2 [facility] [place] Comment on above: Performed By: #### L 500.2500, L100.0100 #### [facility] [address] [place], [address] RDW SD 54.1 fl High 35.1-43.9 [facility] [facility] Comment on above: Performed By: #### L 500.2500, L100.0100 #### [facility] [address] [place], [address] WBC (Bld) [#/Vol] 11.8 10*3/uL High 4.4-11.0 [facility] Comment on above: Performed By: #### L 500.2500, L100.0100 #### [facility] [address] [place], [address] Carbon dioxide, total [Moles /volume] in Central venous bloodOrdered By: Alexi Olivas on 12-30-2024 CO2 [Moles/Vol] 24.1 mmol/L 21.0-32.0 [facility] Chloride assayOrdered By: Domenico Olivas on 12-30-2024 Chloride [Moles/Vol] 107 mmol/L 98-108 [facility] Electrocardiogram reportOrde red By: Sabrina Arrington on 12-30-2024 EKG study [facility] Cardiovascular Services [address] [place] [address] 12 Lead EKG 12/27/24 1414 MR#: [id number] Acct: [id number] Name: NAZARIO HUTTON Rep #:[id number] : 1950 74 From: Sabrina cuevas MD [...] Abnormal ECG Confirmed by HUGH LUNA, MORRIS ([id number]), editorial director CAREY BAUER ([id number]) on12/30/2024 6:52:47 AM Referred By: Confirmed By: MORRIS ARRINGTON MD 12/30/24 0652 Date _ Sabrina Arrington MD CC: Dr. Alexi Olivas DO; Dr. Valeriano Beasley MD; Dr. Marino Holguin MD ~ Signed [facility] Other Phone: Eosinophil percentageOrdered By: Alexi Olivas on 12-30-2024 Eosinophils/100 WBC (Bld) 0.0 % 0-5 [facility] Erythrocyte distribution wid th ratioOrdered By: Alexi Olivas on 12-30-2024 Erythrocyte distribution width (RBC) [Ratio] 13.7 % 11.6-14.6 [facility] Erythrocyte distribution wid th standard deviationOrdered By: Alexi Olivas on 12-30-2024 Erythrocyte distribution width (RBC) [Ratio] 54.1 fl High 35.1-43.9 [facility] Glomerular filtration rate ( GFR) estimation/1.73 sq m using serum, plasma, or whole bOrdered By: Alexi Olivas on 12-30-2024 GFR/1.73 sq M.predicted among non-blacks MDRD (S/P/Bld) [Vol rate/Area] 97 mL/min/{1.73_m2} >60 [facility] Comment on above: mL/min/1.73m2 CKD-EP I Creatinine Equation (2020) Gram Stainon 12-30-2024 GS see mar Acceptable Specimen? Yes (<25 Epithelial cells per/lpf) Gram Stain 3+ Gram positive cocci 2+ Gram positive rods 4+ White Blood Cells Normal [facility] Comment on above: Performed By: #### L 9000.0800 #### [facility] [address] [place], [address] GS Acceptable Specimen? Yes (<25 Epithelial cells per/lpf) Gram Stain 2+ Gram positive cocci 1+ Gram positive rods 3+ White Blood Cells Normal [facility] Comment on above: Performed By: #### L 500.2500, L100.0100 #### [facility] [address] [place], [address] Hematocrit Auto (Bld) [Volum e fraction]Ordered By: Alexi Olivas on 12-30-2024 Hematocrit (Bld) [Volume fraction] 40.2 % 40-54 [facility] Hemoglobin measurementOrdere d By: Alexi Olivas on 12-30-2024 Hemoglobin (Bld) [Mass/Vol] 13.5 g/dL 13.0-16.5 [facility] Immature granulocytes/100 WB C Auto (Bld)Ordered By: Alexi Olivas on 12-30-2024 Immature granulocytes/100 WBC (Bld) 1.000 % High 0.0-0.9 [facility] Comment on above: IG% - Immature Granu locytes (promyelocytes, myelocytes and metamyelocytes) > 1% indicates that a LEFT SHIFT is Present. MCV (mean corpuscular volume ) determinationOrdered By: Alexi Olivas on 12-30-2024 MCV (RBC) [Entitic vol] 106.9 fL High 80-94 [facility] Mean corpuscular hemoglobin (MCH) determinationOrdered By: Alexi Olivas on 12-30-2024 MCH (RBC) [Entitic mass] 35.9 pg High 27.0-32.0 [facility] Mean corpuscular hemoglobin concentration (MCHC) determinationOrdered By: Alexi Olivas on 12-30-2024 MCHC (RBC) [Mass/Vol] 33.6 g/dL 32-36 [facility] Mean platelet volume determi nationOrdered By: Alexi Olivas on 12-30-2024 Platelet mean volume (Bld) [Entitic vol] 9.8 fL 6.2-12.0 [facility] Monocyte percentageOrdered B y: Alexi Olivas on 12-30-2024 Monocytes/100 WBC (Bld) 6.4 % 0-10 [facility] Neutrophil percentageOrdered By: Alexi Olivas on 12-30-2024 Neutrophils/100 WBC (Bld) 88.6 % High 47-70 [facility] Nucleated red blood cell per centageOrdered By: Alexi Olivas on 12-30-2024 Nucleated RBC/100 WBC (Bld) [Ratio] 0 % 0-5 [facility] Platelet countOrdered By: Domenico Olivas on 12-30-2024 Platelets (Bld) [#/Vol] 185 10*3/uL 150-450 [facility] Potassium measurement (mass/ volume)Ordered By: Alexi Olivas on 12-30-2024 Potassium (Unsp spec) [Mass/Vol] 4.0 mmol/L 3.3-5.1 [facility] RBC Auto (Bld) [#/Vol]Ordere d By: Alexi Olivas on 12-30-2024 RBC (Bld) [#/Vol] 3.76 10*6/uL Low 4.6-6.2 [facility] [place] Serum creatinine measurement (mass/volume)Ordered By: Alexi Olivas on 12-30-2024 Creatinine [Mass/Vol] 0.70 mg/dL 0.70-1.20 [facility] Serum glucose measurement (m ass/volume)Ordered By: Alexi Olivas on 12-30-2024 Glucose [Mass/Vol] 125 mg/dL High 70-99 [facility] Serum or plasma calcium reid urement (mass/volume)Ordered By: Alexi Olivas on 12-30-2024 Calcium [Mass/Vol] 9.0 mg/dL 7.6-11.0 [facility] Serum or plasma urea nitroge n measurement (mass/volume)Ordered By: Alexi Olivas on 12-30-2024 Urea nitrogen [Mass/Vol] 20 mg/dL High 4-19 [facility] Sodium levelOrdered By: Alexi Olivas on 12-30-2024 Sodium [Moles/Vol] 141 mmol/L 133-145 [facility] White blood cell (WBC) count Ordered By: Alexi Olivas on 12-30-2024 WBC (Bld) [#/Vol] 11.8 10*3/uL High 4.4-11.0 [facility] [place] Assessment of wrist artery p atency prior to arterial punctureOrdered By: Alexi Olivas on 12-29-2024 Arterial patency Wrist artery --pre arterial puncture Positive [facility] Basic Metabolic Profile (BMP )on 12-29-2024 BUN/CRE 20.7 RATIO High 10-20 [facility] Comment on above: Performed By: #### L 3890.6200 #### [facility] [address] [place], [address] Calcium [Mass/Vol] 9.1 mg/dL Normal 7.6-11.0 [facility] Comment on above: Performed By: #### L 3890.0 #### [facility] [address] [place], [address] Chloride [Moles/Vol] 105 mmol/L Normal 98-108 [facility] Comment on above: Performed By: #### L 3890.6200 #### [facility] [address] [place], [address] CO2 [Moles/Vol] 21.8 mmol/L Normal 21.0-32.0 [facility] Comment on above: Performed By: #### L 389.0 #### [facility] [address] [place], [address] Creatinine [Mass/Vol] 0.80 mg/dL Normal 0.70-1.20 [facility] Comment on above: Performed By: #### L 3890.6200 #### [facility] [address] [place], [address] ECRCL 94.28 ml/min Normal 50-250 [facility] Comment on above: Performed By: #### L 3890.6200 #### [facility] [address] [place], [address] GAP 12 Normal 5-15 [facility] Comment on above: Performed By: #### L 3890.6200 #### [facility] [address] [place], [address] GFR/1.73 sq M.predicted among non-blacks MDRD (S/P/Bld) [Vol rate/Area] 93 mL/min/{1.73_m2} Normal >60 [facility] Comment on above: Result Comment: mL/m in/1.73m2 CKD-EPI Creatinine Equation (2020) Performed By: #### L 3890.6200 #### [facility] [address] [place], [address] Glucose [Mass/Vol] 169 mg/dL High 70-99 [facility] Comment on above: Performed By: #### L 3890.6200 #### [facility] [address] [place], [address] Potassium [Moles/Vol] 4.3 mmol/L Normal 3.3-5.1 [facility] Comment on above: Performed By: #### L 3890.0 #### [facility] [address] [place], [address] Sodium [Moles/Vol] 139 mmol/L Normal 133-145 [facility] Comment on above: Performed By: #### L 3890.6200 #### [facility] [address] [place], [address] Urea nitrogen [Mass/Vol] 17 mg/dL Normal 4-19 [facility] Comment on above: Performed By: #### L 3890.6200 #### [facility] [address] [place], [address] [facility] Positive Normal [facility] Comment on above: Performed By: #### L 9000.0800 #### [facility] [address] [place], [address] Base excess Calc (Bld) [Moles/Vol] 4 mmol/L High -2 to +2 [facility] Comment on above: Performed By: #### L 9000.0800 #### [facility] [address] [place], [address] Blood Gas Type ART Normal [facility] Comment on above: Performed By: #### L 0.0800 #### [facility] [address] [place], [address] CO2 [Moles/Vol] 29 mmol/L Normal [facility] Comment on above: Performed By: #### L 0.0800 #### [facility] [address] [place], [address] FI02 30.0 Normal [facility] Comment on above: Performed By: #### L 0.0800 #### [facility] [address] [place], [address] HCO3 (Bld) [Moles/Vol] 27.9 mmol/L High 22-26 [facility] Comment on above: Performed By: #### L 0.0800 #### [facility] [address] [place], [address] Mode AC Normal [facility] Comment on above: Performed By: #### L 9000.0800 #### [facility] [address] [place], [address] O2 Delivery Dev ET Tube Normal [facility] Comment on above: Performed By: #### L 0.0800 #### [facility] [address] [place], [address] pCO2 40.5 mmHg Normal 35-45 [facility] Comment on above: Performed By: #### L 0.0800 #### [facility] [address] [place], [address] PEEP 5 Normal [facility] Comment on above: Performed By: #### L 0.0800 #### [facility] [address] [place], [address] pH (Bld) 7.45 [pH] Normal 7.35-7.45 [facility] Comment on above: Performed By: #### L 9000.0800 #### [facility] [address] [place], [address] PO2 76 mmHG Normal 75-100 [facility] Comment on above: Performed By: #### L 9000.0800 #### [facility] [address] [place], [address] RR 14 Normal [facility] Comment on above: Performed By: #### L 9000.0800 #### [facility] [address] [place], [address] SITE R Radial Normal [facility] Comment on above: Performed By: #### L 9000.0800 #### [facility] [address] [place], [address] SO2 96 Normal 95-99 [facility] Comment on above: Performed By: #### L 9000.0800 #### [facility] [address] [place], [address] Vt 500.0 mL Normal [facility] Comment on above: Performed By: #### L 9000.0800 #### [facility] [address] [place], [address] Blood base excess determinat ionOrdered By: Alexi Olivas on 12-29-2024 Base excess Calc (BldV) [Moles/Vol] 4 mmol/L High -2-2 [facility] Blood bicarbonate measuremen tOrdered By: Alexi Olivas on 12-29-2024 HCO3 (Bld) [Moles/Vol] 27.9 mmol/L High 22-26 [facility] Blood cultureOrdered By: Donnie Myers on 12-29-2024 Bacteria identified Cx Nom (Bld) No growth in 5 days. [facility] CBC W/Diff, Automatedon 06-0 8-2024 Absolute Lymph 0.43 X10 3/uL Low 0.83-4.51 [facility] Comment on above: Performed By: #### L 3890.6200 #### [facility] [address] [place], [address] Absolute Neut 13.7 X10 3/uL High 2.0-7.7 [facility] Comment on above: Performed By: #### L 3890.6200 #### [facility] [address] [place], [address] Basophils/100 WBC (Bld) 0.1 % Normal 0-1 [facility] Comment on above: Performed By: #### L 3890.0 #### [facility] [address] [place], [address] Eosinophils/100 WBC (Bld) 0.0 % Normal 0-5 [facility] Comment on above: Performed By: #### L 389.0 #### [facility] [address] [place], [address] Erythrocyte distribution width (RBC) [Ratio] 13.5 % Normal 11.6-14.6 [facility] Comment on above: Performed By: #### L 3890.0 #### [facility] [address] [place], [address] Hematocrit (Bld) [Volume fraction] 42.1 % Normal 40-54 [facility] Comment on above: Performed By: #### L 3890.6200 #### [facility] [address] [place], [address] Hemoglobin (Bld) [Mass/Vol] 14.3 g/dL Normal 13.0-16.5 [facility] Comment on above: Performed By: #### L 3890.6200 #### [facility] [address] [place], [address] IG% 0.500 Normal 0.0-0.9 [facility] Comment on above: Result Comment: IG% - Immature Granulocytes (promyelocytes, myelocytes and metamyelocytes) > 1% indicates that a LEFT SHIFT is Present. Performed By: #### L 389.0 #### [facility] [address] [place], [address] Lymphocytes/100 WBC (Bld) 2.9 % Low 19-41 [facility] Comment on above: Performed By: #### L 3889.0 #### [facility] [address] [place], [address] MCH (RBC) [Entitic mass] 35.8 pg High 27.0-32.0 [facility] Comment on above: Performed By: #### L 3889.6199 #### [facility] [address] [place], [address] MCHC (RBC) [Mass/Vol] 34.0 g/dL Normal 32-36 [facility] Comment on above: Performed By: #### L 3889.0 #### [facility] [address] [place], [address] MCV (RBC) [Entitic vol] 105.5 fL High 80-94 [facility] Comment on above: Performed By: #### L 3889.6199 #### [facility] [address] [place], [address] Monocytes/100 WBC (Bld) 4.4 % Normal 0-10 [facility] Comment on above: Performed By: #### L 3889.0 #### [facility] [address] [place], [address] Neutrophils/100 WBC (Bld) 92.1 % High 47-70 [facility] Comment on above: Performed By: #### L 3889.6199 #### [facility] [address] [place], [address] Nucleated RBC (Bld) [#/Vol] 0 10*3/uL Normal 0-5 [facility] Comment on above: Performed By: #### L 3890.6200 #### [facility] [address] [place], [address] Platelet mean volume (Bld) [Entitic vol] 10.0 fL Normal 6.2-12.0 [facility] Comment on above: Performed By: #### L 3890.6200 #### [facility] [address] [place], [address] Platelets (Bld) [#/Vol] 198 10*3/uL Normal 150-450 [facility] Comment on above: Performed By: #### L 3890.0 #### [facility] [address] [place], [address] RBC (Bld) [#/Vol] 3.99 10*6/uL Low 4.6-6.2 [facility] [place] Comment on above: Performed By: #### L 3890.6200 #### [facility] [address] [place], [address] RDW SD 52.8 fl High 35.1-43.9 [facility] Comment on above: Performed By: #### L 3890.6200 #### [facility] [address] [place], [address] WBC (Bld) [#/Vol] 14.8 10*3/uL High 4.4-11.0 [facility] Comment on above: Performed By: #### L 389.6200 #### [facility] [address] [place], [address] Chest 1 View (Portable)on Chest 1 View (Portable) [facility] Imaging Services [address] [place] [address] Chest 1 View (Portable) MR#: [id number] Acct: [id number] Name: NAZARIO HUTTON Rep #: [id number] : 1950 M 74 From: Anoop price MD PCP: Dr. Valeriano Beasley MD Status: ADM IN Study: Chest 1 View (Portable) Date of Exam: 12/29/24 Exam# [id number] Ordering Dr: Mohit Myers MD PROCEDURE: CHEST [...] View (Portable) IMPRESSION: See above Reading Location: [facility] CC: Dr. Valeriano Beasley MD; Dr. Mohit Myers MD Developer Evangelist: Signed Normal [facility] HIVon 12-29-2024 HIV Non-Reactive Normal Nonreactive [facility] Comment on above: Result Comment: Non- Reactive Reactive Repeatedly reactive samples must be confirmed according to CDC recommended confirmatory algorithms. The subresults for either HIVAG or AHIV can be used as an aid in the selection of the confirmation algorithm for reactive samples. Send out specimens with Reactive results to [facility] for confirmation. Order the HIV antibody detection and differentiation: [id number] Performed By: #### L 3890.6200 #### [facility] [address] [place], [place], [address] Influenza virus A and B and SARS-CoV-2 (COVID-19) and Respiratory syncytial virus RNAOrdered By: Mohit Myers on 12-29-2024 SARS-CoV-2 (COVID-19) RNA DEMARIO+probe Ql (Unsp spec) [facility] M100.678on 12-29-2024 M100.678 Pending SARS-CoV-2 (COVID 19) Negative INFLUENZA A Negative INFLUENZA B Negative RSV PCR Negative Normal [facility] Comment on above: Performed By: #### L 3400.5105, L3200.1600, L503.7505, L509.7001 #### [facility] [address] [place], [place], [address] Measurement, pHOrdered By: Courtney Olivas on 12-29-2024 pH (Unsp spec) 7.45 [pH] 7.35-7.45 [facility] No Panel InformationOrdered By: Alexi Olivas on 12-29-2024 Bedside Blood Gas PEEP 5 [facility] Blood Gas Respiration Rate 14 [facility] Blood Gas Sample Site R Radial [facility] Blood Gas Specimen Type ART [facility] Blood Gas Tidal Volume 500.0 mL [facility] Blood Gas Vent Mode AC [facility] Oxygen Delivery Device ET Tube [facility] No Panel InformationOrdered By: Mohit Myers on 12-29-2024 Hepatitis C Antibody Comment Comment . [facility] Comment on above: Not infected with HC V unless early or acute infection issuspected (which may be delayed in an immunocompromisedindividual), or other evidence exists to indicate HCVinfection.Performed at: [address] [id number] Director: José Miguel Alba PhD, Phone: [phone] HIV (1&2) Antibody Non-Reactive Nonreactive [facility] Comment on above: Non-ReactiveReactive Repeatedly reactive samples must be confirmed according to CDC recommended confirmatory algorithms. The subresults for either HIVAG or AHIV can be used as an aid in the selection of the confirmation algorithm for reactive samples.Send out specimens with Reactive results to [facility] for confirmation.Order the HIV antibody detection and differentiation: #[id number] Serum or plasma hepatitis B virus surface antigen detection by immunoassayOrdered By: Mohit Myers on 12-29-2024 HBV surface Ag IA Ql Negative Negative [facility] Total carbon dioxide measure mentOrdered By: Alexi Olivas on 12-29-2024 CO2 [Moles/Vol] 29 mmol/L [facility] Urinalysis, Completeon 12-29 BACTERIA Normal None Seen [facility] Comment on above: Order Comment: ALICIA CTOR TO SPECIFY Result Comment: AUGUSTUS ENT DISCHARGED Performed By: #### L 9000.0800 #### [facility] [address] [place], [address] BILIRUBIN URINE Normal Negative [facility] Comment on above: Order Comment: COLLE CTOR TO SPECIFY Result Comment: AUGUSTUS ENT DISCHARGED Performed By: #### L 9000.0800 #### [facility] [address] [place], [address] Clarity (U) Normal Clear [facility] Comment on above: Order Comment: ALICIA CTOR TO SPECIFY Result Comment: AUGUSTUS ENT DISCHARGED Performed By: #### L 9000.0800 #### [facility] [address] [place], [address] Color (U) Normal Yellow [facility] Comment on above: Order Comment: ALICIA CTOR TO SPECIFY Result Comment: AUGUSTUS ENT DISCHARGED Performed By: #### L 9000.0800 #### [facility] [address] [place], [address] EPI,SQUAMOUS Normal 0-5 [facility] Comment on above: Order Comment: ALICIA CTOR TO SPECIFY Result Comment: AUGUSTUS ENT DISCHARGED Performed By: #### L 9000.0800 #### [facility] [address] [place], [address] GLUCOSE, UR Normal Normal [facility] Comment on above: Order Comment: ALICIA CTOR TO SPECIFY Result Comment: AUGUSTUS ENT DISCHARGED Performed By: #### L 9000.0800 #### [facility] [address] [place], [address] KETONE UR Normal Negative [facility] Comment on above: Order Comment: ALICIA CTOR TO SPECIFY Result Comment: AUGUSTUS ENT DISCHARGED Performed By: #### L 9000.0800 #### [facility] [address] [place], [address] LEUK ESTERASE Normal Negative [facility] Comment on above: Order Comment: COLLE CTOR TO SPECIFY Result Comment: AUGUSTUS ENT DISCHARGED Performed By: #### L 9000.0800 #### [facility] [address] [place], [address] Mucus Ql (Urine sed) Normal [facility] Comment on above: Order Comment: COLLE CTOR TO SPECIFY Result Comment: AUGUSTUS ENT DISCHARGED Performed By: #### L 9000.0800 #### [facility] [address] [place], [address] Nitrite Ql (U) Normal Negative [facility] Comment on above: Order Comment: COLLE CTOR TO SPECIFY Result Comment: AUGUSTUS ENT DISCHARGED Performed By: #### L 9000.0800 #### [facility] [address] [place], [address] OCCULT BLOOD-UR Normal Negative [facility] Comment on above: Order Comment: COLLE CTOR TO SPECIFY Result Comment: AUGUSTUS ENT DISCHARGED Performed By: #### L 9000.0800 #### [facility] [address] [place], [address] pH UR Normal 5.0 - 8.0 [facility] Comment on above: Order Comment: COLLE CTOR TO SPECIFY Result Comment: AUGUSTUS ENT DISCHARGED Performed By: #### L 9000.0800 #### [facility] [address] [place], [address] PROT DIPSTX Normal Negative [facility] Comment on above: Order Comment: COLLE CTOR TO SPECIFY Result Comment: AUGUSTUS ENT DISCHARGED Performed By: #### L 9000.0800 #### [facility] [address] [place], [address] RBC Normal 0-5 [facility] Comment on above: Order Comment: COLLE CTOR TO SPECIFY Result Comment: AUGUSTUS ENT DISCHARGED Performed By: #### L 9000.0800 #### [facility] [address] [place], [address] SP.GR. DIPSTX Normal 1.002-1.030 [facility] Comment on above: Order Comment: ALICIA ULRICHOR TO SPECIFY Result Comment: AUGUSTUS ENT DISCHARGED Performed By: #### L 9000.0800 #### [facility] [address] [place], [address] UR Preservative Normal [facility] Comment on above: Order Comment: COLLE CTOR TO SPECIFY Result Comment: AUGUSTUS ENT DISCHARGED Performed By: #### L 9000.0800 #### [facility] [address] [place], [address] UROBILI Normal Normal [facility] Comment on above: Order Comment: ALICIA CTOR TO SPECIFY Result Comment: AUGUSTUS ENT DISCHARGED Performed By: #### L 9000.0800 #### [facility] [address] [place], [address] WBC Normal 0-5 [facility] Comment on above: Order Comment: ALICIA CTOR TO SPECIFY Result Comment: AUGUSTUS ENT DISCHARGED Performed By: #### L 9000.0800 #### [facility] [address] [place], [address] BACTERIA 0 SEEN Normal None Seen [facility] Comment on above: Order Comment: DERRICK TER SPECIMEN Result Comment: @REC EIVED ON ACCIDENT. REORDERED Performed By: #### L 400.0001 #### [facility] [address] [place], [address] EPI,SQUAMOUS 0 SEEN Normal 0-5 [facility] Comment on above: Order Comment: DERRICK TER SPECIMEN Result Comment: @REC EIVED ON ACCIDENT. REORDERED Performed By: #### L 400.0001 #### [facility] [address] [place], [address] Mucus Ql (Urine sed) 0 SEEN Normal [facility] Comment on above: Order Comment: DERRICK TER SPECIMEN Result Comment: @REC EIVED ON ACCIDENT. REORDERED Performed By: #### L 400.0001 #### [facility] [address] [place], [address] RBC 0 SEEN Normal 0-5 [facility] Comment on above: Order Comment: DERRICK TER SPECIMEN Result Comment: @REC EIVED ON ACCIDENT. REORDERED Performed By: #### L 400.0001 #### [facility] [address] [place], [address] WBC 0 SEEN Normal 0-5 [facility] Comment on above: Order Comment: DERRICK TER SPECIMEN Result Comment: @REC EIVED ON ACCIDENT. REORDERED Performed By: #### L 400.0001 #### [facility] [address] [place], [address] BILIRUBIN URINE Normal Negative [facility] Comment on above: Order Comment: DERRICK TER SPECIMEN Result Comment: @REC EIVED ON ACCIDENT. REORDERED Performed By: #### L 400.0001 #### [facility] [address] [place], [address] Clarity (U) Normal Clear [facility] Comment on above: Order Comment: DERRICK TER SPECIMEN Result Comment: @REC EIVED ON ACCIDENT. REORDERED Performed By: #### L 400.0001 #### [facility] [address] [place], [address] Color (U) Normal Yellow [facility] Comment on above: Order Comment: DERRICK TER SPECIMEN Result Comment: @REC EIVED ON ACCIDENT. REORDERED Performed By: #### L 400.0001 #### [facility] [address] [place], [address] GLUCOSE, UR Normal Normal [facility] Comment on above: Order Comment: DERRICK TER SPECIMEN Result Comment: @REC EIVED ON ACCIDENT. REORDERED Performed By: #### L 400.0001 #### [facility] [address] [place], [address] KETONE UR Normal Negative [facility] Comment on above: Order Comment: DERRICK TER SPECIMEN Result Comment: @REC EIVED ON ACCIDENT. REORDERED Performed By: #### L 400.0001 #### [facility] [address] [place], [address] LEUK ESTERASE Normal Negative [facility] Comment on above: Order Comment: DERRICK TER SPECIMEN Result Comment: @REC EIVED ON ACCIDENT. REORDERED Performed By: #### L 400.0001 #### [facility] [address] [place], [address] Nitrite Ql (U) Normal Negative [facility] Comment on above: Order Comment: DERRICK TER SPECIMEN Result Comment: @REC EIVED ON ACCIDENT. REORDERED Performed By: #### L 400.0001 #### [facility] [address] [place], [address] OCCULT BLOOD-UR Normal Negative [facility] Comment on above: Order Comment: DERRICK TER SPECIMEN Result Comment: @REC EIVED ON ACCIDENT. REORDERED Performed By: #### L 400.0001 #### [facility] [address] [place], [address] pH UR Normal 5.0 - 8.0 [facility] Comment on above: Order Comment: DERRIKC TER SPECIMEN Result Comment: @REC EIVED ON ACCIDENT. REORDERED Performed By: #### L 400.0001 #### [facility] [address] [place], [address] PROT DIPSTX Normal Negative [facility] Comment on above: Order Comment: DERRICK TER SPECIMEN Result Comment: @REC EIVED ON ACCIDENT. REORDERED Performed By: #### L 400.0001 #### [facility] [address] [place], [address] SP.GR. DIPSTX Normal 1.002-1.030 [facility] Comment on above: Order Comment: DERRICK TER SPECIMEN Result Comment: @REC EIVED ON ACCIDENT. REORDERED Performed By: #### L 400.0001 #### [facility] [address] [place], [address] UR Preservative Normal [facility] Comment on above: Order Comment: DERRICK TER SPECIMEN Result Comment: @REC EIVED ON ACCIDENT. REORDERED Performed By: #### L 400.0001 #### [facility] [address] [place], [address] UROBILI Normal Normal [facility] Comment on above: Order Comment: DERRICK TER SPECIMEN Result Comment: @REC EIVED ON ACCIDENT. REORDERED Performed By: #### L 400.0001 #### [facility] [address] [place], [address] Bilirubin, totalOrdered By: Flakita Florentino on 12-28-2024 Bilirubin [Mass/Vol] 0.59 mg/dL 0.00-1.30 [facility] CBC W/Diff, Automatedon Absolute Lymph 0.45 X10 3/uL Low 0.83-4.51 [facility] Comment on above: Performed By: #### L 9000.0800 #### [facility] [address] [place], [address] Absolute Neut 8.4 X10 3/uL High 2.0-7.7 [facility] Comment on above: Performed By: #### L 9000.0800 #### [facility] [address] [place], [address] Basophils/100 WBC (Bld) 0.1 % Normal 0-1 [facility] Comment on above: Performed By: #### L 9000.0800 #### [facility] [address] [place], [address] Eosinophils/100 WBC (Bld) 0.0 % Normal 0-5 [facility] Comment on above: Performed By: #### L 9000.0800 #### [facility] [address] [place], [address] Erythrocyte distribution width (RBC) [Ratio] 13.3 % Normal 11.6-14.6 [facility] Comment on above: Performed By: #### L 9000.0800 #### [facility] [address] [place], [address] Hematocrit (Bld) [Volume fraction] 41.5 % Normal 40-54 [facility] Comment on above: Performed By: #### L 9000.0800 #### [facility] [address] [place], [address] Hemoglobin (Bld) [Mass/Vol] 14.4 g/dL Normal 13.0-16.5 [facility] Comment on above: Performed By: #### L 9000.0800 #### [facility] [address] [place], [address] IG% 0.600 Normal 0.0-0.9 [facility] Comment on above: Result Comment: IG% - Immature Granulocytes (promyelocytes, myelocytes and metamyelocytes) > 1% indicates that a LEFT SHIFT is Present. Performed By: #### L 9000.0800 #### [facility] [address] [place], [address] Lymphocytes/100 WBC (Bld) 5.0 % Low 19-41 [facility] Comment on above: Performed By: #### L 9000.0800 #### [facility] [address] [place], [address] MCH (RBC) [Entitic mass] 36.0 pg High 27.0-32.0 [facility] Comment on above: Performed By: #### L 9000.0800 #### [facility] [address] [place], [address] MCHC (RBC) [Mass/Vol] 34.7 g/dL Normal 32-36 [facility] Comment on above: Performed By: #### L 9000.0800 #### [facility] [address] [place], [address] MCV (RBC) [Entitic vol] 103.8 fL High 80-94 [facility] Comment on above: Performed By: #### L 9000.0800 #### [facility] [address] [place], [address] Monocytes/100 WBC (Bld) 1.4 % Normal 0-10 [facility] Comment on above: Performed By: #### L 9000.0800 #### [facility] [address] [place], [address] Neutrophils/100 WBC (Bld) 92.9 % High 47-70 [facility] Comment on above: Performed By: #### L 9000.0800 #### [facility] [address] [place], [address] Nucleated RBC (Bld) [#/Vol] 0 10*3/uL Normal 0-5 [facility] Comment on above: Performed By: #### L 9000.0800 #### [facility] [address] [place], [address] Platelet mean volume (Bld) [Entitic vol] 9.8 fL Normal 6.2-12.0 [facility] Comment on above: Performed By: #### L 9000.0800 #### [facility] [address] [place], [address] Platelets (Bld) [#/Vol] 180 10*3/uL Normal 150-450 [facility] Comment on above: Performed By: #### L 9000.0800 #### [facility] [address] [place], [address] RBC (Bld) [#/Vol] 4.00 10*6/uL Low 4.6-6.2 [facility] Comment on above: Performed By: #### L 9000.0800 #### [facility] [address] [place], [address] RDW SD 51.4 fl High 35.1-43.9 [facility] Comment on above: Performed By: #### L 9000.0800 #### [facility] [address] [place], [address] WBC (Bld) [#/Vol] 9.0 10*3/uL Normal 4.4-11.0 [facility] Comment on above: Performed By: #### L 9000.0800 #### [facility] [address] [place], [address] Comprehensive Metabolic Prof [facility] 12-28-2024 Albumin [Mass/Vol] 3.7 g/dL Normal 3.4-4.8 [facility] Comment on above: Performed By: #### L 9000.0800 #### [facility] [address] [place], [address] Albumin/Globulin [Mass ratio] 1.0 {ratio} Normal 0.9-2.4 [facility] Comment on above: Performed By: #### L 9000.0800 #### [facility] [address] [place], [address] ALK PHOS 149 U/L High 40-129 [facility] Comment on above: Performed By: #### L 9000.0800 #### [facility] [address] [place], [address] ALT [Catalytic activity/Vol] 31 U/L Normal <=46 [facility] Comment on above: Performed By: #### L 9000.0800 #### [facility] [address] [place], [address] AST [Catalytic activity/Vol] 42 U/L High <=37 [facility] Comment on above: Result Comment: Hemo lysis present, Results??could be affected. ?? Performed By: #### L 9000.0800 #### [facility] [address] [place], [address] Bilirubin [Mass/Vol] 0.59 mg/dL Normal 0.00-1.30 [facility] Comment on above: Performed By: #### L 9000.0800 #### [facility] [address] [place], [address] BUN/CRE 15.6 RATIO Normal 10-20 [facility] Comment on above: Performed By: #### L 9000.0800 #### [facility] [address] [place], [address] Calcium [Mass/Vol] 9.0 mg/dL Normal 7.6-11.0 [facility] Comment on above: Performed By: #### L 9000.0800 #### [facility] [address] [place], [address] Chloride [Moles/Vol] 105 mmol/L Normal 98-108 [facility] Comment on above: Performed By: #### L 9000.0800 #### [facility] [address] [place], [address] CO2 [Moles/Vol] 19.7 mmol/L Low 21.0-32.0 [facility] Comment on above: Performed By: #### L 9000.0800 #### [facility] [address] [place], [address] Creatinine [Mass/Vol] 0.69 mg/dL Low 0.70-1.20 [facility] Comment on above: Performed By: #### L 9000.0800 #### [facility] [address] [place], [address] ECRCL 94.14 ml/min Normal 50-250 [facility] Comment on above: Performed By: #### L 9000.0800 #### [facility] [address] [place], [address] GAP 13 Normal 5-15 [facility] Comment on above: Performed By: #### L 9000.0800 #### [facility] [address] [place], [address] GFR/1.73 sq M.predicted among non-blacks MDRD (S/P/Bld) [Vol rate/Area] 97 mL/min/{1.73_m2} Normal >60 [facility] Comment on above: Result Comment: mL/m in/1.73m2 CKD-EPI Creatinine Equation (2020) Performed By: #### L 9000.0800 #### [facility] [address] [place], [address] Globulin (S) [Mass/Vol] 3.6 g/dL Normal 2.2-4.2 [facility] Comment on above: Performed By: #### L 9000.0800 #### [facility] [address] [place], [address] Glucose [Mass/Vol] 178 mg/dL High 70-99 [facility] Comment on above: Performed By: #### L 9000.0800 #### [facility] [address] [place], [address] Potassium [Moles/Vol] 4.3 mmol/L Normal 3.3-5.1 [facility] Comment on above: Result Comment: Hemo lysis present, Results??could be affected. ?? Performed By: #### L 9000.0800 #### [facility] [address] [place], [address] Sodium [Moles/Vol] 137 mmol/L Normal 133-145 [facility] Comment on above: Performed By: #### L 9000.0800 #### [facility] [address] [place], [address] T PROT 7.2 g/dL Normal 5.9-8.4 [facility] Comment on above: Performed By: #### L 9000.0800 #### [facility] [address] [place], [address] Urea nitrogen [Mass/Vol] 11 mg/dL Normal 4-19 [facility] Comment on above: Performed By: #### L 9000.0800 #### [facility] [address] [place], [address] Consultation - Intens[employer]iston 12-28-2024 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 [facility] Medical Records Department [address] [place] [address] 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 12/28/24 0916 MR#: [id number] Acct: [id number] Name: NAZARIO HUTTON Rep #: [id number] : 1950 74 From: Mohit Myers MD [...] ROS: Unable to obtain as pt intubated [facility] Medical History High serum parathyroid hormone (PTH) Heart murmur Elevated alkaline phosphatase level Elevated PSA Diverticulosis AVM (arteriovenous malformation) of colon Vitamin D deficiency Gout Alcohol abuse Essential hypertension Chest pain Anxiety Depression Myocardial infarct Chest pain Acute blood loss anemia Bloody diarrhea Coronary artery disease Atherosclerotic heart disease of saxman coronary artery without angina pectoris ST elevation [place] (STEMI) ( 11/29/21) Hyperlipidemia Hypertension Home Medications [...] disease Hypertension Myocardial infarction age 53 following [place]. Surgical History H/O colonoscopy S/P cataract extraction [...] / 400 (more content not included)... Normal [facility] Gram stainOrdered By: Mohit Myers on 12-28-2024 Microscopic observation Gram stain Nom (Unsp spec) [facility] IgEOrdered By: Mohit Myers on 12-28-2024 IgE 214 IU/mL 6-495 [facility] Comment on above: Performed at: [facility] [place], [place] [id number] Director: Zafar Browne MD, Phone: [phone] [id number] 12-28-2024 Natriuretic peptide B (Bld) [Mass/Vol] 2229 pg/mL High <=900 [facility] Comment on above: Result Comment: Hear t Failure Unlikely: < 300 pg/mL Heart Failure Likely < 50 Years: > 450 pg/mL 50-75 Years: > 900 pg/mL >75 Years: > 1800 pg/mL Performed By: #### L 3400.5105, L3200.1600, L503.7505, L509.7001 #### [facility] [address] [place], [place], [address] [id number] 12-28-2024 Procalcitonin 0.18 ng/mL High <=0.10 [facility] Comment on above: Result Comment: Inte [...] #### L 3400.5105, L3200.1600, L503.7505, L509.7001 #### [facility] [address] [place], [place], [address] Laboratory - Chemistry and C hemistry - challengeOrdered By: Flakita Florentino on 12-28-2024 AST [Catalytic activity/Vol] 42 U/L High <38 [facility] Comment on above: Hemolysis present, R esults could be affected. Magnesiumon 12-28-2024 Magnesium [Mass/Vol] 2.1 mg/dL Normal 1.5-2.2 [facility] Comment on above: Performed By: #### L 9000.0800 #### [facility] [address] [place], [place], [address] Magnesium measurement (mass/ volume)Ordered By: Flakita Florentino on 12-28-2024 Magnesium (Unsp spec) [Mass/Vol] 2.1 mg/dL 1.5-2.2 [facility] Microbial respiratory cultur eOrdered By: Mohit Myers on 12-28-2024 Microorganism identified Cx Nom (Unsp spec) Staphylococcus aureus Abnormal [facility] Microorganism identified Cx Nom (Unsp spec) Streptococcus agalactiae (B) Abnormal [facility] Microorganism identified Cx Nom (Unsp spec) Streptococcus group F Abnormal [facility] Natriuretic peptide.B prohor archie N-Terminal [Mass/volume] in Serum or PlasmaOrdered By: Mohit Myers on 12-28-2024 Natriuretic peptide.B prohormone N-Terminal [Mass/Vol] 2229 pg/mL High <900 [facility] Comment on above: Heart Failure Unlike ly: < 300 pg/mLHeart Failure Likely< 50 Years: > 450 pg/mL50-75 Years: > 900 pg/mL>75 Years: > 1800 pg/mL Phosphoruson 12-28-2024 Phosphate [Mass/Vol] 3.3 mg/dL Normal 2.7-4.5 [facility] Comment on above: Performed By: #### L 9000.0800 #### [facility] [address] [facility] [place], [place], [address] Procalcitonin [Mass/volume] in Serum or Plasma by ImmunoassayOrdered By: Mohit Myers on 12-28-2024 Procalcitonin IA [Mass/Vol] 0.18 ng/mL High <0.11 [facility] Comment on above: Interpretation:<0.10 -0.25 ng/mL: [...] beta-hemolytic Streptococcus or Staphylococcus aureus isolated. Normal [facility] Comment on above: Performed By: #### L 500.2500, L100.0100 #### [facility] [address] [place], [address] Serum globulin measurementOr dered By: Flakita Florentino on 12-28-2024 Globulin (S) [Mass/Vol] 3.6 g/dL 2.2-4.2 [facility] Serum or plasma alanine guevara otransferase (ALT) measurementOrdered By: Flakita Florentino on 12-28-2024 ALT [Catalytic activity/Vol] 31 U/L <47 [facility] Serum or plasma albumin reid urement (mass/volume)Ordered By: Flakita Florentino on 12-28-2024 Albumin [Mass/Vol] 3.7 g/dL 3.4-4.8 [facility] Serum or plasma albumin/glob ulin mass ratioOrdered By: Flakita Florentino on 12-28-2024 Albumin/Globulin [Mass ratio] 1.0 {ratio} 0.9-2.4 [facility] Serum or plasma alkaline adelfo sphatase measurementOrdered By: Flakita Florentino on 12-28-2024 ALP [Catalytic activity/Vol] 149 U/L High 40-129 [facility] Total proteinOrdered By: Dee Florentino on 12-28-2024 Protein [Mass/Vol] 7.2 g/dL 5.9-8.4 [facility] 12 Lead EKGon 12-27-2024 12 Lead EKG [facility] Cardi[facility] Services [address] [place] [address] 12 Lead EKG 12/27/24 1414 MR#: [id number] Acct: [id number] Name: NAZARIO HUTTON Rep #: [id number] : 1950 74 From: Sabrina Arrington MD [...] Abnormal ECG Confirmed by HUGH LUNA, MORRIS ([id number]), editorial director CAREY BAUER ([id number]) on 12/30/2024 6:52:47 AM Referred By: Confirmed By: MORRIS ARRINGTON MD 12/30/24651 Date Sabrina Arrington MD CC: Dr. Alexi Olivas DO; Dr. Valeriano Beasley MD; Dr. Marino Holguin MD Signed Normal [facility] Absolute lymphocyte countOrd ered By: Marino Holguin on 12-27-2024 Lymphocytes Auto (Unsp spec) [#/Vol] 0.73 10*3/uL Low 0.83-4.51 [facility] Absolute neutrophil countOrd ered By: Marino Holguin on 12-27-2024 Neutrophils (Bld) [#/Vol] 5.0 10*3/uL 2.0-7.7 [facility] Anion gap in Serum or Plasma Ordered By: Marino Holguin on 12-27-2024 Anion gap [Moles/Vol] 11 mmol/L 5-15 [facility] Assessment of wrist artery p atency prior to arterial punctureOrdered By: Marino Holguin on 12-27-2024 Arterial patency Wrist artery --pre arterial puncture Positive [facility] Automated lymphocyte count a s percentage of total leukocytesOrdered By: Marino Holguin on 12-27-2024 Lymphocytes/100 WBC Auto (Unsp spec) 9.8 % Low 19-41 [facility] BUN/creatinine ratioOrdered By: Marino Holguin on 12-27-2024 Urea nitrogen/Creatinine [Mass ratio] 14.1 mg/mg 10-20 [facility] Basophil percentageOrdered B y: Marino Holguin on 12-27-2024 Basophils/100 WBC (Bld) 0.8 % 0-1 [facility] Bilirubin, totalOrdered By: Marino Holguin on 12-27-2024 Bilirubin [Mass/Vol] 0.80 mg/dL 0.00-1.30 [facility] Blood Gases by CPSon 025 TATY TEST Positive Normal [facility] Comment on above: Performed By: #### L 9000.0800 #### [facility] Laboratory [address] [place], [address] Base excess Calc (Bld) [Moles/Vol] 1 mmol/L Normal -2 to +2 [facility] Comment on above: Performed By: #### L 9000.0800 #### [facility] [address] [place], [address] Blood Gas Type ART Normal [facility] Comment on above: Performed By: #### L 9000.0800 #### [facility] [address] [place], [address] CO2 [Moles/Vol] 26 mmol/L Normal [facility] Comment on above: Performed By: #### L 9000.0800 #### [facility] [address] [place], [address] FI02 30.0 Normal [facility] Comment on above: Performed By: #### L 9000.0800 #### [facility] [address] [place], [address] HCO3 (Bld) [Moles/Vol] 24.9 mmol/L Normal 22-26 [facility] Comment on above: Performed By: #### L 9000.0800 #### [facility] [address] [place], [address] Mode AC Normal [facility] Comment on above: Performed By: #### L 9000.0800 #### [facility] [address] [place], [address] O2 Delivery Dev Adult Vent Normal [facility] Comment on above: Performed By: #### L 9000.0800 #### [facility] [address] [place], [address] pCO2 37.4 mmHg Normal 35-45 [facility] Comment on above: Performed By: #### L 9000.0800 #### [facility] [address] [place], [address] PEEP 5 Normal [facility] Comment on above: Performed By: #### L 9000.0800 #### [facility] [address] [place], [address] pH (Bld) 7.43 [pH] Normal 7.35-7.45 [facility] Comment on above: Performed By: #### L 9000.0800 #### [facility] [address] [place], [address] PO2 91 mmHG Normal 75-100 [facility] Comment on above: Performed By: #### L 9000.0800 #### [facility] [address] [place], [address] RR 14 Normal [facility] Comment on above: Performed By: #### L 9000.0800 #### [facility] [address] [place], [address] SITE L Radial Normal [facility] Comment on above: Performed By: #### L 9000.0800 #### [facility] [address] [place], [address] SO2 97 Normal 95-99 [facility] Comment on above: Performed By: #### L 9000.0800 #### [facility] [address] [place], [address] Vt 500.0 mL Normal [facility] Comment on above: Performed By: #### L 9000.0800 #### [facility] [address] [place], [address] Blood base excess determinat ionOrdered By: Marino Holguin on 12-27-2024 Base excess Calc (BldV) [Moles/Vol] 1 mmol/L -2-2 [facility] Blood bicarbonate measuremen tOrdered By: Marino Holguin on 12-27-2024 HCO3 (Bld) [Moles/Vol] 24.9 mmol/L [facility] CBC W/Diff, Automatedon Absolute Lymph 0.73 X10 3/uL Low 0.83-4.51 [facility] Comment on above: Performed By: #### L 3400.5105, L3200.1600, L503.7505, L509.7001 #### [facility] [address] [place], [address] Absolute Neut 5.0 X10 3/uL Normal 2.0-7.7 [facility] Comment on above: Performed By: #### L 3400.5105, L3200.1600, L503.7505, L509.7001 #### [facility] [address] [place], [address] Basophils/100 WBC (Bld) 0.8 % Normal 0-1 [facility] Comment on above: Performed By: #### L 3400.5105, L3200.1600, L503.7505, L509.7001 #### [facility] [address] [place], [address] Eosinophils/100 WBC (Bld) 10.8 % High 0-5 [facility] Comment on above: Performed By: #### L 3400.5105, L3200.1600, L503.7505, L509.7001 #### [facility] [address] [place], [address] Erythrocyte distribution width (RBC) [Ratio] 13.3 % Normal 11.6-14.6 [facility] Comment on above: Performed By: #### L 3400.5105, L3200.1600, L503.7505, L509.7001 #### [facility] [address] [place], [address] Hematocrit (Bld) [Volume fraction] 40.9 % Normal 40-54 [facility] Comment on above: Performed By: #### L 3400.5105, L3200.1600, L503.7505, L509.7001 #### [facility] [address] [place], [address] Hemoglobin (Bld) [Mass/Vol] 14.1 g/dL Normal 13.0-16.5 [facility] Comment on above: Performed By: #### L 3400.5105, L3200.1600, L503.7505, L509.7001 #### [facility] [address] [place], [address] IG% 0.300 Normal 0.0-0.9 [facility] Comment on above: Result Comment: IG% - Immature Granulocytes (promyelocytes, myelocytes and metamyelocytes) > 1% indicates that a LEFT SHIFT is Present. Performed By: #### L 3400.5105, L3200.1600, L503.7505, L509.7001 #### [facility] [address] [place], [address] Lymphocytes/100 WBC (Bld) 9.8 % Low 19-41 [facility] Comment on above: Performed By: #### L 3400.5105, L3200.1600, L503.7505, L509.7001 #### [facility] [address] [place], [address] MCH (RBC) [Entitic mass] 35.7 pg High 27.0-32.0 [facility] Comment on above: Performed By: #### L 3400.5105, L3200.1600, L503.7505, L509.7001 #### [facility] [address] [place], [address] MCHC (RBC) [Mass/Vol] 34.5 g/dL Normal 32-36 [facility] Comment on above: Performed By: #### L 3400.5105, L3200.1600, L503.7505, L509.7001 #### [facility] [address] [place], [address] MCV (RBC) [Entitic vol] 103.5 fL High 80-94 [facility] Comment on above: Performed By: #### L 3400.5105, L3200.1600, L503.7505, L509.7001 #### [facility] [address] [place], [address] Monocytes/100 WBC (Bld) 11.2 % High 0-10 [facility] Comment on above: Performed By: #### L 3400.5105, L3200.1600, L503.7505, L509.7001 #### [facility] [address] [place], [address] Neutrophils/100 WBC (Bld) 67.1 % Normal 47-70 [facility] Comment on above: Performed By: #### L 3400.5105, L3200.1600, L503.7505, L509.7001 #### [facility] [address] [place], [address] Nucleated RBC (Bld) [#/Vol] 0 10*3/uL Normal 0-5 [facility] Comment on above: Performed By: #### L 3400.5105, L3200.1600, L503.7505, L509.7001 #### [facility] [address] [place], [address] Platelet mean volume (Bld) [Entitic vol] 9.7 fL Normal 6.2-12.0 [facility] Comment on above: Performed By: #### L 3400.5105, L3200.1600, L503.7505, L509.7001 #### [facility] [address] [place], [address] Platelets (Bld) [#/Vol] 200 10*3/uL Normal 150-450 [facility] Comment on above: Performed By: #### L 3400.5105, L3200.1600, L503.7505, L509.7001 #### [facility] [address] [place], [address] RBC (Bld) [#/Vol] 3.95 10*6/uL Low 4.6-6.2 [facility] Comment on above: Performed By: #### L 3400.5105, L3200.1600, L503.7505, L509.7001 #### [facility] [address] [place], [address] RDW SD 51.5 fl High 35.1-43.9 [facility] Comment on above: Performed By: #### L 3400.5105, L3200.1600, L503.7505, L509.7001 #### [facility] [address] [place], [address] WBC (Bld) [#/Vol] 7.5 10*3/uL Normal 4.4-11.0 [facility] Comment on above: Performed By: #### L 3400.5105, L3200.1600, L503.7505, L509.7001 #### [facility] [address] [place], [address] CPK Total, Creatine Kinaseon 12-27-2024 CPK TOTAL 120 U/L Normal 24-195 [facility] Comment on above: Order Comment: Comme nts: DC when propofol is d/c'd Performed By: #### L 9000.0800 #### [facility] [address] [place], [address] Carbon dioxide, total [Moles /volume] in Central venous bloodOrdered By: Marino Holguin on 12-27-2024 CO2 [Moles/Vol] 23.1 mmol/L 21.0-32.0 [facility] Chest 1 View (Portable)on Chest 1 View (Portable) [facility] Imaging Services [address] [place] [address] Chest 1 View (Portable) MR#: [id number] Acct: [id number] Name: NAZARIO HUTTON Rep #: [id number] : 1950 M 74 From: Tessa Granados PCP: Dr. Valeriano Beasley MD Status: [facility] ER Study: Chest 1 View (Portable) Date of Exam: 12/27/24 Exam# [id number] Ordering Dr: Marino Holguin MD PROCEDURE: CHEST [...] Bilateral lower lung airspace disease is seen, wdhe-mwrlanf-alro-right. Differential diagnosis includes atelectasis and pneumonitis. No evidence of pulmonary edema. The cardiomediastinal silhouette is within the normal range. No acute osseous change is evident. Reading Location: [id number] CC: Dr. Valeriano Beasley MD; Dr. Marino Holguin MD Developer Evangelist: Signed Normal [facility] Chloride assayOrdered By: Jake Holguin on 12-27-2024 Chloride [Moles/Vol] 105 mmol/L 98-108 [facility] Comprehensive Metabolic Prof ilon 12-27-2024 Albumin [Mass/Vol] 4.0 g/dL Normal 3.4-4.8 [facility] Comment on above: Performed By: #### L 3400.5105, L3200.1600, L503.7505, L509.7001 #### [facility] [address] [place], [address] Albumin/Globulin [Mass ratio] 1.1 {ratio} Normal 0.9-2.4 [facility] Comment on above: Performed By: #### L 3400.5105, L3200.1600, L503.7505, L509.7001 #### [facility] [address] [place], [address] ALK PHOS 151 U/L High 40-129 [facility] Comment on above: Performed By: #### L 3400.5105, L3200.1600, L503.7505, L509.7001 #### [facility] [address] [place], [address] ALT [Catalytic activity/Vol] 34 U/L Normal <=46 [facility] Comment on above: Performed By: #### L 3400.5105, L3200.1600, L503.7505, L509.7001 #### [facility] [address] [place], [address] AST [Catalytic activity/Vol] 50 U/L High <=37 [facility] Comment on above: Performed By: #### L 3400.5105, L3200.1600, L503.7505, L509.7001 #### [facility] [address] [place], [address] Bilirubin [Mass/Vol] 0.80 mg/dL Normal 0.00-1.30 [facility] Comment on above: Performed By: #### L 3400.5105, L3200.1600, L503.7505, L509.7001 #### [facility] [address] [place], [address] BUN/CRE 14.1 RATIO Normal 10-20 [facility] Comment on above: Performed By: #### L 3400.5105, L3200.1600, L503.7505, L509.7001 #### [facility] [address] [place], [address] Calcium [Mass/Vol] 9.4 mg/dL Normal 7.6-11.0 [facility] Comment on above: Performed By: #### L 3400.5105, L3200.1600, L503.7505, L509.7001 #### [facility] [address] [place], [address] Chloride [Moles/Vol] 105 mmol/L Normal 98-108 [facility] Comment on above: Performed By: #### L 3400.5105, L3200.1600, L503.7505, L509.7001 #### [facility] [address] [place], [address] CO2 [Moles/Vol] 23.1 mmol/L Normal 21.0-32.0 [facility] Comment on above: Performed By: #### L 3400.5105, L3200.1600, L503.7505, L509.7001 #### [facility] [address] [place], [address] Creatinine [Mass/Vol] 0.72 mg/dL Normal 0.70-1.20 [facility] Comment on above: Performed By: #### L 3400.5105, L3200.1600, L503.7505, L509.7001 #### [facility] [address] [place], [address] ECRCL 93.74 ml/min Normal 50-250 [facility] Comment on above: Performed By: #### L 3400.5105, L3200.1600, L503.7505, L509.7001 #### [facility] [address] [place], [address] GAP 11 Normal 5-15 [facility] Comment on above: Performed By: #### L 3400.5105, L3200.1600, L503.7505, L509.7001 #### [facility] [address] [place], [address] GFR/1.73 sq M.predicted among non-blacks MDRD (S/P/Bld) [Vol rate/Area] 96 mL/min/{1.73_m2} Normal >60 [facility] Comment on above: Result Comment: mL/m in/1.73m2 CKD-EPI Creatinine Equation (2020) Performed By: #### L 3400.5105, L3200.1600, L503.7505, L509.7001 #### [facility] [address] [place], [address] Globulin (S) [Mass/Vol] 3.5 g/dL Normal 2.2-4.2 [facility] Comment on above: Performed By: #### L 3400.5105, L3200.1600, L503.7505, L509.7001 #### [facility] [address] [place], [address] Glucose [Mass/Vol] 95 mg/dL Normal 70-99 [facility] Comment on above: Performed By: #### L 3400.5105, L3200.1600, L503.7505, L509.7001 #### [facility] [address] [place], [address] Potassium [Moles/Vol] 4.7 mmol/L Normal 3.3-5.1 [facility] Comment on above: Performed By: #### L 3400.5105, L3200.1600, L503.7505, L509.7001 #### [facility] [address] [place], [address] Sodium [Moles/Vol] 139 mmol/L Normal 133-145 [facility] Comment on above: Performed By: #### L 3400.5105, L3200.1600, L503.7505, L509.7001 #### [facility] [address] [place], [address] T PROT 7.4 g/dL Normal 5.9-8.4 [facility] Comment on above: Performed By: #### L 3400.5105, L3200.1600, L503.7505, L509.7001 #### [facility] [address] [place], [address] Urea nitrogen [Mass/Vol] 10 mg/dL Normal 4-19 [facility] Comment on above: Performed By: #### L 3400.5105, L3200.1600, L503.7505, L509.7001 #### [facility] [address] [place], [address] Emergency Department Summary on 12-27-2024 Emergency Department Summary [facility] Medical Records Department [address] [place] [address] Emergency Department Summary 12/27/24 MR#: [id number] Acct: [id number] Name: NAZARIO HUTTON Rep #: [id number] : 1950 74 From: Marino Holguin MD [...] similar symptoms: Yes Recent Illness/Hospitalization: No PFSH [facility] Medical History High serum parathyroid hormone (PTH) Heart murmur Elevated alkaline phosphatase level Elevated PSA Diverticulosis AVM (arteriovenous malformation) of colon Vitamin D deficiency Gout Alcohol abuse Essential hypertension Chest pain Anxiety Depression Myocardial infarct Chest pain Acute blood loss anemia Bloody diarrhea Coronary artery disease Atherosclerotic heart disease of saxman coronary artery without angina pectoris ST elevation [place] (STEMI) ( 11/29/21) Hyperlipidemia Hypertension Home Medications [...] disease Hypertension Myocardial infarction age 53 following [place]. Surgical History H/O colonoscopy S/P cataract extraction [...] 13:42 Temp (more content not included)... Normal [facility] Eosinophil percentageOrdered By: Marino Holguin on 12-27-2024 Eosinophils/100 WBC (Bld) 10.8 % High 0-5 [facility] Erythrocyte distribution wid th ratioOrdered By: Marino Holguin on 12-27-2024 Erythrocyte distribution width (RBC) [Ratio] 13.3 % 11.6-14.6 [facility] Erythrocyte distribution wid th standard deviationOrdered By: Marino Holguin on 12-27-2024 Erythrocyte distribution width (RBC) [Ratio] 51.5 fl High 35.1-43.9 [facility] Glomerular filtration rate ( GFR) estimation/1.73 sq m using serum, plasma, or whole bOrdered By: Marino Holguin on 12-27-2024 GFR/1.73 sq M.predicted among non-blacks MDRD (S/P/Bld) [Vol rate/Area] 96 mL/min/{1.73_m2} >60 [facility] Comment on above: mL/min/1.73m2 CKD-EP I Creatinine Equation (2020) Gram stainOrdered By: Marino choudhary on 12-27-2024 Microscopic observation Gram stain Nom (Unsp spec) [facility] H AND P Exam - Hospitaliston 12-27-2024 H&P Exam - Hospitalist [facility] Medical Records Department [address] [place] [address] H P Exam - Hospitalist 12/27/24 1411 MR#: [id number] Acct: [id number] Name: NAZARIO HUTTON Rep #: [id number] : 1950 74 From: Flakita Florentino DO PCP: Dr. Valeriano Beasley MD Status:REG ER Location: ED HPI - General General Date of Admission: 12/27/24 Date of Service: 12/27/24 Chief Complaint: Tongue and lip swelling HPI Narrative NAZARIO HUTTON, is a 74 M who presented to the emergency department at [facility] on 12/27/2024 with tongue and lip [...] maintained on Solu-Medrol, H2 and H1 blockers. [facility] Medical History High serum parathyroid hormone (PTH) Heart murmur Elevated alkaline phosphatase level Elevated PSA Diverticulosis AVM (arteriovenous malformation) of colon Vitamin D deficiency Gout Alcohol abuse Essential hypertension Chest pain Anxiety Depression Myocardial infarct Chest pain Acute blood loss anemia Bloody diarrhea Coronary artery disease Atherosclerotic heart disease of saxman coronary artery without angina pectoris ST elevation [place] (STEMI) ( 11/29/21) Hyperlipidemia Hypertension Home Medications [...] disease Hypertension Myocardial infarction age 53 following [place]. Surgical History H/O colonoscopy S/P cataract extraction [...] 85 Resp (more content not included)... Normal [facility] Hematocrit Auto (Bld) [Volum e fraction]Ordered By: Marino Holguin on 12-27-2024 Hematocrit (Bld) [Volume fraction] 40.9 % 40-54 [facility] Hemoglobin measurementOrdere d By: Marino Holguin on 12-27-2024 Hemoglobin (Bld) [Mass/Vol] 14.1 g/dL 13.0-16.5 [facility] Immature granulocytes/100 WB C Auto (Bld)Ordered By: Marino Holguin on 12-27-2024 Immature granulocytes/100 WBC (Bld) 0.300 % 0.0-0.9 [facility] Comment on above: IG% - Immature Granu locytes (promyelocytes, myelocytes and metamyelocytes) > 1% indicates that a LEFT SHIFT is Present. Laboratory - Chemistry and C hemistry - challengeOrdered By: Marino Holguin on 12-27-2024 AST [Catalytic activity/Vol] 50 U/L High <38 [facility] MCV (mean corpuscular volume ) determinationOrdered By: Marino Holguin on 12-27-2024 MCV (RBC) [Entitic vol] 103.5 fL High 80-94 [facility] Mean corpuscular hemoglobin (MCH) determinationOrdered By: Marinophilippe Holguin on 12-27-2024 MCH (RBC) [Entitic mass] 35.7 pg High 27.0-32.0 [facility] Mean corpuscular hemoglobin concentration (MCHC) determinationOrdered By: Marino Holguin on 12-27-2024 MCHC (RBC) [Mass/Vol] 34.5 g/dL 32-36 [facility] Mean platelet volume determi nationOrdered By: Marino Holguin on 12-27-2024 Platelet mean volume (Bld) [Entitic vol] 9.7 fL 6.2-12.0 [facility] Measurement, pHOrdered By: Michael Holguin on 12-27-2024 pH (Unsp spec) 7.43 [pH] 7.35-7.45 [facility] Microbial respiratory cultur eOrdered By: Marino Holguin on 12-27-2024 Microorganism identified Cx Nom (Unsp spec) or Staphylococcus aureus isolated. [facility] Monocyte percentageOrdered B y: Marino Holguin on 12-27-2024 Monocytes/100 WBC (Bld) 11.2 % High 0-10 [facility] Neutrophil percentageOrdered By: Marinophilippe Holguin on 12-27-2024 Neutrophils/100 WBC (Bld) 67.1 % 47-70 [facility] No Panel InformationOrdered By: Marino Holguin on 12-27-2024 Bedside Blood Gas PEEP 5 [facility] Blood Gas Respiration Rate 14 [facility] Blood Gas Sample Site L Radial [facility] Blood Gas Specimen Type ART [facility] Blood Gas Tidal Volume 500.0 mL [facility] Blood Gas Vent Mode AC [facility] er [facility] Oxygen Delivery Device Adult Vent [facility] Nucleated red blood cell per centageOrdered By: Marino Holguin on 12-27-2024 Nucleated RBC/100 WBC (Bld) [Ratio] 0 % 0-5 [facility] Platelet countOrdered By: Jake Holguin on 12-27-2024 Platelets (Bld) [#/Vol] 200 10*3/uL 150-450 [facility] Potassium measurement (mass/ volume)Ordered By: Marino Holguin on 12-27-2024 Potassium (Unsp spec) [Mass/Vol] 4.7 mmol/L 3.3-5.1 [facility] RBC Auto (Bld) [#/Vol]Ordere d By: Marino Holguin on 12-27-2024 RBC (Bld) [#/Vol] 3.95 10*6/uL Low 4.6-6.2 [facility] Serum creatinine measurement (mass/volume)Ordered By: Marino Holguin on 12-27-2024 Creatinine [Mass/Vol] 0.72 mg/dL 0.70-1.20 [facility] Serum globulin measurementOr dered By: Marino Holguin 12-27-2024 Globulin (S) [Mass/Vol] 3.5 g/dL 2.2-4.2 [facility] Serum glucose measurement (m ass/volume)Ordered By: Marino Holguin 12-27-2024 Glucose [Mass/Vol] 95 mg/dL 70-99 [facility] Serum or plasma alanine guevara otransferase (ALT) measurementOrdered By: Marino Holguin 12-27-2024 ALT [Catalytic activity/Vol] 34 U/L <47 [facility] Serum or plasma albumin reid urement (mass/volume)Ordered By: Marino Holguin on 12-27-2024 Albumin [Mass/Vol] 4.0 g/dL 3.4-4.8 [facility] Serum or plasma albumin/glob ulin mass ratioOrdered By: Marinophilippe Holguin on 12-27-2024 Albumin/Globulin [Mass ratio] 1.1 {ratio} 0.9-2.4 [facility] Serum or plasma alkaline adelfo sphatase measurementOrdered By: Marinophilippe Holguin on 06-06-2025 ALP [Catalytic activity/Vol] 151 U/L High 40-129 [facility] Serum or plasma calcium reid urement (mass/volume)Ordered By: Marino Holguin on 12-27-2024 Calcium [Mass/Vol] 9.4 mg/dL 7.6-11.0 [facility] Serum or plasma creatine kin ase activityOrdered By: Marinophilippe Holguin on 12-27-2024 CK [Catalytic activity/Vol] 120 U/L 24-195 [facility] Serum or plasma functional c omplement C1 esterase inhibitor detectionOrdered By: Marino Holguin on 12-27-2024 Complement C1 esterase inhibitor.functional Ql 102 . [facility] Comment on above: Result Units: %mean normal Abnormal <41 Equivocal 41 - 67 Normal >67Performed at: [facility] Lab[address] [id number] Director: Zafar Browne MD, Phone: [phone] Serum or plasma urea nitroge n measurement (mass/volume)Ordered By: Marino Holguin on 12-27-2024 Urea nitrogen [Mass/Vol] 10 mg/dL 4-19 [facility] Sodium levelOrdered By: Marinophilippe Holguin on 12-27-2024 Sodium [Moles/Vol] 139 mmol/L 133-145 [facility] Total carbon dioxide measure mentOrdered By: Marino Holguin on 12-27-2024 CO2 [Moles/Vol] 26 mmol/L [facility] Total proteinOrdered By: Marino Holguin on 12-27-2024 Protein [Mass/Vol] 7.4 g/dL 5.9-8.4 [facility] Triglycerideson 12-27-2024 Triglyceride [Mass/Vol] 131 mg/dL Normal [facility] Comment on above: Order Comment: Comme nts: DC when propofol is d/c'dDC when propofol is d/c'd Result Comment: The drugs N-Acetylcysteine and Metamizole may falsely depress this assay. Normal range: <150 mg/dL Borderline High: 150-199 mg/dL High: 200-499 mg/dL Very High: >500 mg/dL Performed By: #### L 9000.0800 #### [facility] [address] [place], [address] Triglycerides measurementOrd ered By: Marino Holguin on 12-27-2024 Triglyceride [Mass/Vol] 131 mg/dL <199 [facility] Comment on above: The drugs N-Acetylcy steine and Metamizole may falsely depress this assay. Normal range: <150 mg/dLBorderline High: 150-199 mg/dLHigh: 200-499 mg/dLVery High: >500 mg/dL White blood cell (WBC) count Ordered By: Marino Holguin on 12-27-2024 WBC (Bld) [#/Vol] 7.5 10*3/uL 4.4-11.0 [facility] CNOVon 12-23-2024 CNOV Office Visit (JOSE JUAN ) -- NAZARIO HUTTON ([id number]) 1950 M Date Time Provider Department 12/23/24 [...] (AI) Davin (more content not included)... 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 Developer Evangelist: [facility] Transcribe Date/Time: Nov 07 2024 5:22A Dictated by : LESTER LOPES MD This examination was interpreted and the report reviewed and electronically signed by: LESTER LOPES MD on Nov 07 2024 5:23AM EST [facility] US Abdominal Aorta for michael Strattonered By: Ccf Provider on 11-07-2024 [facility] US Abdominal Aorta for michael erickson 11-06-2024 Radiology Study observation (narrative) [facility] US SCREENING AAAon US SCREENING AAA * * *Final Report* * * DATE OF EXAM: Nov 06 2024 11:52AM [facility] 1028 - US SCREENING AAA [...] 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 Developer Evangelist: DULCE Transcribe Date/Time: Nov 07 2024 5:22A Dictated by : LESTER LOPES MD This examination was interpreted and the report reviewed and electronically signed by: LESTER LOPES MD on Nov 07 2024 5:23AM EST [id number] Normal [facility] Absolute lymphocyte countOrd ered By: Shubham Blanco on 11-05-2024 Lymphocytes Auto (Unsp spec) [#/Vol] 0.68 10*3/uL Low 0.83-4.51 [facility] Absolute neutrophil countOrd ered By: Shubham Blanco on 11-05-2024 Neutrophils (Bld) [#/Vol] 5.6 10*3/uL 2.0-7.7 [facility] Ammoniaon 11-05-2024 Ammonia (P) [Moles/Vol] 35.6 umol/L Normal 16-60 [facility] Comment on above: Performed By: #### L 3400.5105, L3200.1600, L503.7505, L509.7001 #### [facility] [address] [place], [address] Anion gap in Serum or Plasma Ordered By: Shubham Blanco on 11-05-2024 Anion gap [Moles/Vol] 11 mmol/L -15 [facility] Automated lymphocyte count a s percentage of total leukocytesOrdered By: Shubham Blanco on 11-05-2024 Lymphocytes/100 WBC Auto (Unsp spec) 8.4 % Low 19-41 [facility] BUN/creatinine ratioOrdered By: Shubham Blanco on 11-05-2024 Urea nitrogen/Creatinine [Mass ratio] 19.6 mg/mg 10-20 [facility] Basophil percentageOrdered B y: Shubham Blanco on 11-05-2024 Basophils/100 WBC (Bld) 0.4 % 0-1 [facility] Bilirubin, totalOrdered By: Shubham Blanco on 11-05-2024 Bilirubin [Mass/Vol] 0.89 mg/dL 0.00-1.30 [facility] CBC W/Diff, Automatedon 10-22 Absolute Lymph 0.68 X10 3/uL Low 0.83-4.51 [facility] Comment on above: Performed By: #### L 3400.5105, L3200.1600, L503.7505, L509.7001 #### [facility] [address] [place], [address] Absolute Neut 5.6 X10 3/uL Normal 2.0-7.7 [facility] Comment on above: Performed By: #### L 3400.5105, L3200.1600, L503.7505, L509.7001 #### [facility] [address] [place], [address] Basophils/100 WBC (Bld) 0.4 % Normal 0-1 [facility] Comment on above: Performed By: #### L 3400.5105, L3200.1600, L503.7505, L509.7001 #### [facility] [address] [place], [address] Eosinophils/100 WBC (Bld) 7.3 % High 0-5 [facility] Comment on above: Performed By: #### L 3400.5105, L3200.1600, L503.7505, L509.7001 #### [facility] [address] [place], [address] Erythrocyte distribution width (RBC) [Ratio] 13.6 % Normal 11.6-14.6 [facility] Comment on above: Performed By: #### L 3400.5105, L3200.1600, L503.7505, L509.7001 #### [facility] [address] [place], [address] Hematocrit (Bld) [Volume fraction] 37.7 % Low 40-54 [facility] Comment on above: Performed By: #### L 3400.5105, L3200.1600, L503.7505, L509.7001 #### [facility] [address] [place], [address] Hemoglobin (Bld) [Mass/Vol] 13.2 g/dL Normal 13.0-16.5 [facility] Comment on above: Performed By: #### L 3400.5105, L3200.1600, L503.7505, L509.7001 #### [facility] [address] [place], [address] IG% 0.100 Normal 0.0-0.9 [facility] Comment on above: Result Comment: IG% - Immature Granulocytes (promyelocytes, myelocytes and metamyelocytes) > 1% indicates that a LEFT SHIFT is Present. Performed By: #### L 3400.5105, L3200.1600, L503.7505, L509.7001 #### [facility] [address] [place], [address] Lymphocytes/100 WBC (Bld) 8.4 % Low 19-41 [facility] Comment on above: Performed By: #### L 3400.5105, L3200.1600, L503.7505, L509.7001 #### [facility] [address] [place], [address] MCH (RBC) [Entitic mass] 35.3 pg High 27.0-32.0 [facility] Comment on above: Performed By: #### L 3400.5105, L3200.1600, L503.7505, L509.7001 #### [facility] [address] [place], [address] MCHC (RBC) [Mass/Vol] 35.0 g/dL Normal 32-36 [facility] Comment on above: Performed By: #### L 3400.5105, L3200.1600, L503.7505, L509.7001 #### [facility] [address] [place], [address] MCV (RBC) [Entitic vol] 100.8 fL High 80-94 [facility] Comment on above: Performed By: #### L 3400.5105, L3200.1600, L503.7505, L509.7001 #### [facility] [address] [place], [address] Monocytes/100 WBC (Bld) 15.3 % High 0-10 [facility] Comment on above: Performed By: #### L 3400.5105, L3200.1600, L503.7505, L509.7001 #### [facility] [address] [place], [address] Neutrophils/100 WBC (Bld) 68.5 % Normal 47-70 [facility] Comment on above: Performed By: #### L 3400.5105, L3200.1600, L503.7505, L509.7001 #### [facility] [address] [place], [address] Nucleated RBC (Bld) [#/Vol] 0 10*3/uL Normal 0-5 [facility] Comment on above: Performed By: #### L 3400.5105, L3200.1600, L503.7505, L509.7001 #### [facility] [address] [place], [address] Platelet mean volume (Bld) [Entitic vol] 9.7 fL Normal 6.2-12.0 [facility] Comment on above: Performed By: #### L 3400.5105, L3200.1600, L503.7505, L509.7001 #### [facility] [address] [place], [address] Platelets (Bld) [#/Vol] 239 10*3/uL Normal 150-450 [facility] Comment on above: Performed By: #### L 3400.5105, L3200.1600, L503.7505, L509.7001 #### [facility] [address] [place], [address] RBC (Bld) [#/Vol] 3.74 10*6/uL Low 4.6-6.2 [facility] Comment on above: Performed By: #### L 3400.5105, L3200.1600, L503.7505, L509.7001 #### [facility] [address] [place], [address] RDW SD 50.2 fl High 35.1-43.9 [facility] Comment on above: Performed By: #### L 3400.5105, L3200.1600, L503.7505, L509.7001 #### [facility] [address] [place], [address] WBC (Bld) [#/Vol] 8.1 10*3/uL Normal 4.4-11.0 [facility] Comment on above: Performed By: #### L 3400.5105, L3200.1600, L503.7505, L509.7001 #### [facility] [address] [place], [address] CRPon 11-05-2024 C-REACTIVE PROT 6.19 mg/L High 0.0-3.0 [facility] Comment on above: Performed By: #### L 3400.5105, L3200.1600, L503.7505, L509.7001 #### [facility] [address] [place], [address] CRP [Mass/Vol]Ordered By: Tessa Blanco on 11-05-2024 C-Reactive Protein Extended Range 6.19 mg/L High 0.0-3.0 [facility] Calculated very low density lipoprotein (VLDL) cholesterol measurementOrdered By: Shubham Blanco on 11-05-2024 Calculated very low density lipoprotein (VLDL) cholesterol measurement 19 mg/dL [facility] VLDL Cholesterol 19 mg/dL [facility] Carbon dioxide, total [Moles /volume] in Central venous bloodOrdered By: Shubham Blanco on 11-05-2024 CO2 [Moles/Vol] 21.0 mmol/L 21.0-32.0 [facility] Cardiology Visit Reporton Cardiology Visit Report [facility] [address] [place] [address] OFFICE VISIT Date of Service: 11/05/24 MR#: [id number] Acct: [id number] Name: NAZARIO HUTTON Rep #: [id number] : 1950 Provider: FAUSTO moore Age/Sex: 74/M [place] [facility] [place] Status: Signed HPI HPI History of [...] losartan was discontinued. He has seen an fiber optic splicer. From a cardiac standpoint, the patient is [...] 95 Intake Visit Reasons: 6 M FU [employer] Required: No Is patient in pain?: No [...] you fallen in the past year?: No [facility] Medical History High serum parathyroid hormone (PTH) Heart murmur Elevated alkaline phosphatase level Elevated PSA Diverticulosis AVM (arteriovenous malformation) of colon Vitamin D deficiency Gout Alcohol abuse Essential hypertension Chest pain Anxiety Depression Myocardial infarct Chest pain Acute blood loss anemia Bloody diarrhea Coronary artery disease Atherosclerotic heart disease of saxman coronary artery without angina pectoris ST elevation [place] (STEMI) ( 11/29/21) Hyperlipidemia Hypertension Surgical History H/O colonoscopy (more content not included)... Normal [facility] Chloride assayOrdered By: Tessa Blanco on 11-05-2024 Chloride [Moles/Vol] 104 mmol/L 98-108 [facility] Comprehensive Metabolic Prof ilon 11-05-2024 Albumin [Mass/Vol] 4.1 g/dL Normal 3.4-4.8 [facility] Comment on above: Performed By: #### L 3400.5105, L3200.1600, L503.7505, L509.7001 #### [facility] [address] [place], [address] Albumin/Globulin [Mass ratio] 1.2 {ratio} Normal 0.9-2.4 [facility] Comment on above: Performed By: #### L 3400.5105, L3200.1600, L503.7505, L509.7001 #### [facility] [address] [place], [address] ALK PHOS 141 U/L High 40-129 [facility] Comment on above: Performed By: #### L 3400.5105, L3200.1600, L503.7505, L509.7001 #### [facility] [address] [place], [address] ALT [Catalytic activity/Vol] 32 U/L Normal <=46 [facility] Comment on above: Performed By: #### L 3400.5105, L3200.1600, L503.7505, L509.7001 #### [facility] [address] [place], [address] AST [Catalytic activity/Vol] 41 U/L High <=37 [facility] Comment on above: Performed By: #### L 3400.5105, L3200.1600, L503.7505, L509.7001 #### [facility] [address] [place], [address] Bilirubin [Mass/Vol] 0.89 mg/dL Normal 0.00-1.30 [facility] Comment on above: Performed By: #### L 3400.5105, L3200.1600, L503.7505, L509.7001 #### [facility] [address] [place], [address] BUN/CRE 19.6 RATIO Normal 10-20 [facility] Comment on above: Performed By: #### L 3400.5105, L3200.1600, L503.7505, L509.7001 #### [facility] [address] [place], [address] Calcium [Mass/Vol] 9.8 mg/dL Normal 7.6-11.0 [facility] Comment on above: Performed By: #### L 3400.5105, L3200.1600, L503.7505, L509.7001 #### [facility] [address] [place], [address] Chloride [Moles/Vol] 104 mmol/L Normal 98-108 [facility] Comment on above: Performed By: #### L 3400.5105, L3200.1600, L503.7505, L509.7001 #### [facility] [address] [place], [address] CO2 [Moles/Vol] 21.0 mmol/L Normal 21.0-32.0 [facility] Comment on above: Performed By: #### L 3400.5105, L3200.1600, L503.7505, L509.7001 #### [facility] [address] [place], [address] Creatinine [Mass/Vol] 0.80 mg/dL Normal 0.70-1.20 [facility] Comment on above: Performed By: #### L 3400.5105, L3200.1600, L503.7505, L509.7001 #### [facility] [address] [place], [address] GAP 11 Normal 5-15 [facility] Comment on above: Performed By: #### L 3400.5105, L3200.1600, L503.7505, L509.7001 #### [facility] [address] [place], [address] GFR/1.73 sq M.predicted among non-blacks MDRD (S/P/Bld) [Vol rate/Area] 93 mL/min/{1.73_m2} Normal >60 [facility] Comment on above: Result Comment: mL/m in/1.73m2 CKD-EPI Creatinine Equation (2020) Performed By: #### L 3400.5105, L3200.1600, L503.7505, L509.7001 #### [facility] [address] [place], [address] Globulin (S) [Mass/Vol] 3.4 g/dL Normal 2.2-4.2 [facility] Comment on above: Performed By: #### L 3400.5105, L3200.1600, L503.7505, L509.7001 #### [facility] [address] [place], [address] Glucose [Mass/Vol] 95 mg/dL Normal 70-99 [facility] Comment on above: Performed By: #### L 3400.5105, L3200.1600, L503.7505, L509.7001 #### [facility] [address] [place], [address] Potassium [Moles/Vol] 5.0 mmol/L Normal 3.3-5.1 [facility] Comment on above: Performed By: #### L 3400.5105, L3200.1600, L503.7505, L509.7001 #### [facility] [address] [place], [address] Sodium [Moles/Vol] 136 mmol/L Normal 133-145 [facility] Comment on above: Performed By: #### L 3400.5105, L3200.1600, L503.7505, L509.7001 #### [facility] [address] [place], [address] T PROT 7.4 g/dL Normal 5.9-8.4 [facility] Comment on above: Performed By: #### L 3400.5105, L3200.1600, L503.7505, L509.7001 #### [facility] [address] [place], [address] Urea nitrogen [Mass/Vol] 16 mg/dL Normal 4-19 [facility] Comment on above: Performed By: #### L 3400.5105, L3200.1600, L503.7505, L509.7001 #### [facility] [address] [place], [place], [address] Eosinophil percentageOrdered By: Shubham Blanco on 11-05-2024 Eosinophils/100 WBC (Bld) 7.3 % High 0-5 [facility] Erythrocyte distribution wid th (RBC) [Ratio]Ordered By: Shubham Blanco on 11-05-2024 Erythrocyte distribution width (RBC) [Entitic vol] 50.2 fL High 35.1-43.9 [facility] Erythrocyte distribution wid th ratioOrdered By: Shubham Blanco on 11-05-2024 Erythrocyte distribution width (RBC) [Ratio] 13.6 % 11.6-14.6 [facility] Erythrocyte distribution wid th standard deviationOrdered By: Shubham Blanco on 11-05-2024 Erythrocyte distribution width (RBC) [Ratio] 50.2 fl High 35.1-43.9 [facility] GFR/1.73 sq M.predicted judson g non-blacks MDRD (S/P/Bld) [Vol rate/Area]Ordered By: Shubham Blanco on 11-05-2024 Estimated GFR (MDRD) Non-Af Amer 93 >60 [facility] Comment on above: mL/min/1.73m2 CKD-EP I Creatinine Equation (2020) Glomerular filtration rate ( GFR) estimation/1.73 sq m using serum, plasma, or whole bOrdered By: Shubham lBanco on 11-05-2024 GFR/1.73 sq M.predicted among non-blacks MDRD (S/P/Bld) [Vol rate/Area] 93 mL/min/{1.73_m2} >60 [facility] Comment on above: mL/min/1.73m2 CKD-EP I Creatinine Equation (2020) Hematocrit Auto (Bld) [Volum e fraction]Ordered By: Shubham Blanco on 11-05-2024 Hematocrit (Bld) [Volume fraction] 37.7 % Low 40-54 [facility] Hemoglobin measurementOrdere d By: Shubham Blanco on 11-05-2024 Hemoglobin (Bld) [Mass/Vol] 13.2 g/dL 13.0-16.5 [facility] Immature granulocytes/100 WB C Auto (Bld)Ordered By: Shubham Blanco on 11-05-2024 Immature granulocytes/100 WBC (Bld) 0.100 % 0.0-0.9 [facility] Comment on above: IG% - Immature Granu locytes (promyelocytes, myelocytes and metamyelocytes) > 1% indicates that a LEFT SHIFT is Present. International normalized rat io (INR) calculationOrdered By: Shubham Blanco on 11-05-2024 INR Coag (Bld) [Relative time] 1.0 {INR} [facility] LDL calc ser/plasOrdered By: Shubham Blanco on 11-05-2024 Cholesterol in LDL [Mass/Vol] 85 mg/dL [facility] Comment on above: Mpiyrtnxyw=319-452 m g/dL & Higher Kjoj=765 mg/dL or greater LDL Cholesterol, Calculated 85 mg/dL [facility] Comment on above: Jpmbtrbqyd=090-108 m g/dL & Higher Aibl=884 mg/dL or greater Laboratory - Chemistry and C hemistry - challengeOrdered By: Shubham Blanco on 11-05-2024 AST [Catalytic activity/Vol] 41 U/L High <38 [facility] Lipid Profileon 11-05-2024 CHOL:HDL 2.92 Normal [facility] Comment on above: Performed By: #### L 3400.5105, L3200.1600, L503.7505, L509.7001 #### [facility] [address] [place], [place], [id number] Cholesterol [Mass/Vol] 158 mg/dL Normal <=200 [facility] Comment on above: Result Comment: Chol esterol level, Desirable <200 mg/dL Borderline high cholesterol 200-239 mg/dL High cholesterol >=240 mg/dL Recommendations of the NCEP Adult Treatment Panel for the following risk-cutoff thresholds for the [place] population. Performed By: #### L 3400.5105, L3200.1600, L503.7505, L509.7001 #### [facility] [address] [place], [place], [address] Cholesterol in HDL [Mass/Vol] 54 mg/dL Normal [facility] Comment on above: Result Comment: Jayleen onal Cholesterol Education Program (NCEP) guidelines: <40 mg/dL: Low HDL-cholesterol (major risk factor for CHD) >= 60 mg/dL: High HDL-cholesterol (negative risk factor for CHD) HDL-cholesterol is affected by a number of factors, e.g. smoking, exercise, hormones, sex and age. Performed By: #### L 3400.5105, L3200.1600, L503.7505, L509.7001 #### [facility] [address] [place], [address] Cholesterol in LDL [Mass/Vol] 85 mg/dL Normal [facility] Comment on above: Result Comment: Bord yynfbh=317-749 mg/dL Higher Avnr=290 mg/dL or greater Performed By: #### L 3400.5105, L3200.1600, L503.7505, L509.7001 #### [facility] [address] [place], [address] Cholesterol in VLDL [Mass/Vol] 19 mg/dL Normal 5-40 [facility] Comment on above: Performed By: #### L 3400.5105, L3200.1600, L503.7505, L509.7001 #### [facility] [address] [place], [address] Triglyceride [Mass/Vol] 94 mg/dL Normal [facility] Comment on above: Result Comment: The drugs N-Acetylcysteine and Metamizole may falsely depress this assay. Normal range: <150 mg/dL Borderline High: 150-199 mg/dL High: 200-499 mg/dL Very High: >500 mg/dL Performed By: #### L 3400.5105, L3200.1600, L503.7505, L509.7001 #### [facility] [address] [place], [address] Lymphocytes Auto (Unsp spec) [#/Vol]Ordered By: Shubham Blanco on 11-05-2024 Lymphocytes (Bld) [#/Vol] 0.68 10*3/uL Low 0.83-4.51 [facility] Lymphocytes/100 WBC Auto (Un sp spec)Ordered By: Shubham Blanco on 11-05-2024 Lymphocytes/100 WBC (Bld) 8.4 % Low 19-41 [facility] MCV (mean corpuscular volume ) determinationOrdered By: Shubham Blanco on 11-05-2024 MCV (RBC) [Entitic vol] 100.8 fL High 80-94 [facility] Mean corpuscular hemoglobin (MCH) determinationOrdered By: Shubham Blanco on 11-05-2024 MCH (RBC) [Entitic mass] 35.3 pg High 27.0-32.0 [facility] Mean corpuscular hemoglobin concentration (MCHC) determinationOrdered By: Shubham Blanco on 11-05-2024 MCHC (RBC) [Mass/Vol] 35.0 g/dL 32-36 [facility] Mean platelet volume determi nationOrdered By: Shubham Blanco on 11-05-2024 Platelet mean volume (Bld) [Entitic vol] 9.7 fL 6.2-12.0 [facility] Monocyte percentageOrdered B y: Shubham Blanco on 11-05-2024 Monocytes/100 WBC (Bld) 15.3 % High 0-10 [facility] Neutrophil percentageOrdered By: Shubham Blanco on 11-05-2024 Neutrophils/100 WBC (Bld) 68.5 % 47-70 [facility] Nucleated red blood cell per centageOrdered By: Shubham Blanco on 11-05-2024 Nucleated RBC/100 WBC (Bld) [Ratio] 0 % 0-5 [facility] Platelet countOrdered By: Tessa Blanco on 11-05-2024 Platelets (Bld) [#/Vol] 239 10*3/uL 150-450 [facility] Potassium (Unsp spec) [Mass/ Vol]Ordered By: Shubham Blanco on 11-05-2024 Potassium [Moles/Vol] 5.0 mmol/L 3.3-5.1 [facility] Potassium measurement (mass/ volume)Ordered By: Shubham Blanco on 11-05-2024 Potassium (Unsp spec) [Mass/Vol] 5.0 mmol/L 3.3-5.1 [facility] Prothrombin Time w/INRon INR Coag (PPP) [Relative time] 1.0 {INR} Normal [facility] Comment on above: Performed By: #### L 3400.5105, L3200.1600, L503.7505, L509.7001 #### [facility] [address] [place], [address] PT Coag (PPP) [Time] 13.7 s Normal 11.7-14.9 [facility] Comment on above: Performed By: #### L 3400.5105, L3200.1600, L503.7505, L509.7001 #### [facility] [address] [place], [address] Prothrombin timeOrdered By: Shubham Blanco on 11-05-2024 PT Coag (PPP) [Time] 13.7 s 11.7-14.9 [facility] RBC Auto (Bld) [#/Vol]Ordere d By: Shubham Blanco on 11-05-2024 RBC (Bld) [#/Vol] 3.74 10*6/uL Low 4.6-6.2 [facility] [place] Screening total cholesterol/ high density lipoprotein (HDL) cholesterol ratioOrdered By: Shubham Blanco on 11-05-2024 Cholesterol.total/Cho lesterol in HDL [Mass ratio] 2.92 {ratio} [facility] Serum creatinine measurement (mass/volume)Ordered By: Shubham Blanco on 11-05-2024 Creatinine [Mass/Vol] 0.80 mg/dL 0.70-1.20 [facility] Serum globulin measurementOr dered By: Shubham Blanco on 11-05-2024 Globulin (S) [Mass/Vol] 3.4 g/dL 2.2-4.2 [facility] Serum glucose measurement (m ass/volume)Ordered By: Shubham Blanco on 11-05-2024 Glucose [Mass/Vol] 95 mg/dL 70-99 [facility] Serum or plasma C reactive p rotein measurement (mass/volume)Ordered By: Shubham Blanco on 11-05-2024 CRP [Mass/Vol] 6.19 mg/L High 0.0-3.0 [facility] Serum or plasma alanine guevara otransferase (ALT) measurementOrdered By: Shubham Blanco on 11-05-2024 ALT [Catalytic activity/Vol] 32 U/L <47 [facility] Serum or plasma albumin reid urement (mass/volume)Ordered By: Shubham Blanco on 11-05-2024 Albumin [Mass/Vol] 4.1 g/dL 3.4-4.8 [facility] Serum or plasma albumin/glob ulin mass ratioOrdered By: Shubham Blanco on 11-05-2024 Albumin/Globulin [Mass ratio] 1.2 {ratio} 0.9-2.4 [facility] Serum or plasma alkaline adelfo sphatase measurementOrdered By: Shubham Blanco 11-05-2024 ALP [Catalytic activity/Vol] 141 U/L High 40-129 [facility] Serum or plasma calcium reid urement (mass/volume)Ordered By: Shubham Blanco 11-05-2024 Calcium [Mass/Vol] 9.8 mg/dL 7.6-11.0 [facility] Serum or plasma cholesterol in HDL measurement (mass/volume)Ordered By: Shubham Blanco on 11-05-2024 Cholesterol in HDL [Mass/Vol] 54 mg/dL >40 [facility] Comment on above: National Cholesterol Education Program (NCEP) guidelines:<40 mg/dL: Low HDL-cholesterol (major risk factor for CHD)>= 60 mg/dL: High HDL-cholesterol (negative risk factor for CHD)HDL-cholesterol is affected by a number of factors, e.g. smoking, exercise, hormones, sex and age. Serum or plasma cholesterol measurement (mass/volume)Ordered By: Shubham Blanco 11-05-2024 Cholesterol [Mass/Vol] 158 mg/dL <201 [facility] Comment on above: Cholesterol level, D esirable <200 mg/dLBorderline high cholesterol 200-239 mg/dLHigh cholesterol >=240 mg/dLRecommendations of the NCEP Adult Treatment Panel for the following risk-cutoff thresholds for the [place] population. Serum or plasma urea nitroge n measurement (mass/volume)Ordered By: Shubham Blanco on 11-05-2024 Urea nitrogen [Mass/Vol] 16 mg/dL 4-19 [facility] Sodium levelOrdered By: Nilda Blanco on 11-05-2024 Sodium [Moles/Vol] 136 mmol/L 133-145 [facility] Total proteinOrdered By: Gennaro Blanco on 11-05-2024 Protein [Mass/Vol] 7.4 g/dL 5.9-8.4 [facility] Triglycerides measurementOrd ered By: Shubham Blanco on 11-05-2024 Triglyceride [Mass/Vol] 94 mg/dL <199 [facility] Comment on above: The drugs N-Acetylcy steine and Metamizole may falsely depress this assay. 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 Normal [facility] 25(OH)D3 SerPl-ncon 2024 25-hydroxyvitamin D3 [Mass/Vol] 38.5 ng/mL Normal 31.0-80.0 [facility] Comment on above: Order Comment: Speci men Type: BLOOD SPECIMEN Ordering Facility: [facility] Address: [address] [place] [address] Result Comment: Clas sification of 25 [place] Vitamin D status: Deficiency/Insufficiency: < or = 30 ng/ml. Sufficiency/Optimal Levels: 31-80 ng/mL Toxicity: > 100 ng/mL. Test performed by chemiluminescent immunoassay. Performed By: #### 2 2314-9, 5195-3, 09698-7 #### [facility] CLIA [id number] [address] [place] [address] [place] C3 SerPl-mCncon 10-30-2024 Complement C3 [Mass/Vol] 173 mg/dL High 86-166 [facility] Comment on above: Order Comment: Speci men Type: BLOOD SPECIMENOrdering Facility: [facility] Address: [address] [place] [address] Performed By: #### 1 988-5, 4487-9, 4498-2, 2132-03 ####[facility] [id number] [place] [address] [place] C4 SerPl-mCncon 10-30-2024 Complement C4 [Mass/Vol] 32 mg/dL Normal 13-46 [facility] Comment on above: Order Comment: Speci men Type: BLOOD SPECIMENOrdering Facility: [facility] Address: [address] [place] [address] Performed By: #### 1 988-5, 4485-9, 4498-2, 2132-03 ####[facility] [id number] [place] [address] [place] CBC W Auto Differential pane l (Bld)on 10-30-2024 Basophils (Bld) [#/Vol] 0.05 10*3/uL Normal <0.11 [facility] Comment on above: Order Comment: Speci men Type: BLOOD SPECIMEN Ordering Facility: [facility] Address: [address] [place] [address] Performed By: #### C OPPER #### [facility] CLIA [id number] [address] [place] [address] [place] Basophils/100 WBC (Bld) 0.8 % Normal [facility] Comment on above: Order Comment: Speci men Type: BLOOD SPECIMEN Ordering Facility: [facility] Address: [address] [place] [address] Performed By: #### C OPPER #### [facility] CLIA [id number] [address] [place] [address] [place] Differential cell count method Nom (Bld) Auto Normal [facility] Comment on above: Order Comment: Speci men Type: BLOOD SPECIMEN Ordering Facility: [facility] Address: [address] [place] [address] Performed By: #### C OPPER #### [facility] CLIA [id number] [address] [place] [address] [place] Eosinophils (Bld) [#/Vol] 0.46 10*3/uL High <0.46 [facility] Comment on above: Order Comment: Speci men Type: BLOOD SPECIMEN Ordering Facility: [facility] Address: [address] [place] [address] Performed By: #### C OPPER #### [facility] CLIA [id number] [address] [place] [address] [place] Eosinophils/100 WBC (Bld) 7.0 % Normal [facility] Comment on above: Order Comment: Speci men Type: BLOOD SPECIMEN Ordering Facility: [facility] Address: [address] [place] [address] Performed By: #### C OPPER #### [facility] CLIA [id number] [address] [place] [address] [place] Erythrocyte distribution width (RBC) [Ratio] 13.5 % Normal 11.5-15.0 [facility] Comment on above: Order Comment: Speci men Type: BLOOD SPECIMEN Ordering Facility: [facility] Address: [address] [place] [address] Performed By: #### C OPPER #### [facility] CLIA [id number] [address] [place] [address] [place] Hematocrit (Bld) [Volume fraction] 41.9 % Normal 39.0-51.0 [facility] Comment on above: Order Comment: Speci men Type: BLOOD SPECIMEN Ordering Facility: [facility] Address: [address] [place] [address] Performed By: #### C OPPER #### [facility] CLIA [id number] [address] [place] [address] [place] Hemoglobin (Bld) [Mass/Vol] 14.0 g/dL Normal 13.0-17.0 [facility] Comment on above: Order Comment: Speci men Type: BLOOD SPECIMEN Ordering Facility: [facility] Address: [address] [place] [address] Performed By: #### C OPPER #### [facility] CLIA [id number] [address] [place] [address] [place] Immature granulocytes (Bld) [#/Vol] 10*3/uL Normal <0.10 [facility] Comment on above: Order Comment: Speci men Type: BLOOD SPECIMEN Ordering Facility: [facility] Address: [address] [place] [address] Performed By: #### C OPPER #### [facility] CLIA [id number] [address] [place] [address] [place] Immature granulocytes/100 WBC (Bld) 0.3 % Normal [facility] Comment on above: Order Comment: Speci men Type: BLOOD SPECIMEN Ordering Facility: [facility] Address: [address] [place] [address] Performed By: #### C OPPER #### [facility] CLIA [id number] [address] [place] [address] [place] Lymphocytes (Bld) [#/Vol] 0.59 10*3/uL Low 1.00-4.00 [facility] Comment on above: Order Comment: Speci men Type: BLOOD SPECIMEN Ordering Facility: [facility] Address: [address] [place] [address] Performed By: #### C OPPER #### [facility] CLIA [id number] [address] [place] [address] [place] Lymphocytes/100 WBC (Bld) 9.0 % Normal [facility] Comment on above: Order Comment: Speci men Type: BLOOD SPECIMEN Ordering Facility: [facility] Address: [address] [place] [address] Performed By: #### C OPPER #### [facility] CLIA [id number] [address] [place] [address] [place] MCH (RBC) [Entitic mass] 34.6 pg High 26.0-34.0 [facility] Comment on above: Order Comment: Speci men Type: BLOOD SPECIMEN Ordering Facility: [facility] Address: [address] [place] [address] Performed By: #### C OPPER #### [facility] CLIA [id number] [address] [place] [address] [place] MCHC (RBC) [Mass/Vol] 33.4 g/dL Normal 30.5-36.0 [facility] Comment on above: Order Comment: Speci men Type: BLOOD SPECIMEN Ordering Facility: [facility] Address: [address] [place] [address] Performed By: #### C OPPER #### [facility] CLIA [id number] [address] [place] [address] [place] MCV (RBC) [Entitic vol] 103.5 fL High 80.0-100.0 [facility] Comment on above: Order Comment: Speci men Type: BLOOD SPECIMEN Ordering Facility: [facility] Address: [address] [place] [address] Performed By: #### C OPPER #### [facility] CLIA [id number] [address] [place] [address] [place] Monocytes (Bld) [#/Vol] 0.72 10*3/uL Normal <0.87 [facility] Comment on above: Order Comment: Speci men Type: BLOOD SPECIMEN Ordering Facility: [facility] Address: [address] [place] [address] Performed By: #### C OPPER #### [facility] CLIA [id number] [address] [place] [address] [place] Monocytes/100 WBC (Bld) 10.9 % Normal [facility] Comment on above: Order Comment: Speci men Type: BLOOD SPECIMEN Ordering Facility: [facility] Address: [address] [place] [address] Performed By: #### C OPPER #### [facility] CLIA [id number] [address] [place] [address] [place] Neutrophils (Bld) [#/Vol] 4.74 10*3/uL Normal 1.45-7.50 [facility] Comment on above: Order Comment: Speci men Type: BLOOD SPECIMEN Ordering Facility: [facility] Address: [address] [place] [address] Performed By: #### C OPPER #### [facility] CLIA [id number] [address] [place], [place] [address] [place] Neutrophils/100 WBC (Bld) 72.0 % Normal [facility] Comment on above: Order Comment: Speci men Type: BLOOD SPECIMEN Ordering Facility: [facility] Address: [address] [place] [address] Performed By: #### C OPPER #### [facility] CLIA [id number] [address] [place] [address] [place] Nucleated RBC (Bld) [#/Vol] 10*3/uL Normal <0.01 [facility] Comment on above: Order Comment: Speci men Type: BLOOD SPECIMEN Ordering Facility: [facility] Address: [address] [place] [address] Performed By: #### C OPPER #### [facility] CLIA [id number] [address] [place] [address] [place] Nucleated RBC/100 WBC (Bld) [Ratio] 0.0 /100 WBC Normal [facility] Comment on above: Order Comment: Speci men Type: BLOOD SPECIMEN Ordering Facility: [facility] Address: [address] [place] [address] Performed By: #### C OPPER #### [facility] CLIA [id number] [address] [place] [address] [place] Platelet mean volume (Bld) [Entitic vol] 10.4 fL Normal 9.0-12.7 [facility] Comment on above: Order Comment: Speci men Type: BLOOD SPECIMEN Ordering Facility: [facility] Address: [address] [place] [address] Performed By: #### C OPPER #### [facility] CLIA [id number] [address] [place] [address] [place] Platelets (Bld) [#/Vol] 208 10*3/uL Normal 150-400 [facility] Comment on above: Order Comment: Speci men Type: BLOOD SPECIMEN Ordering Facility: [facility] Address: [address] [place] [address] Performed By: #### C OPPER #### [facility] CLIA [id number] [address] [place] [address] [place] RBC (Bld) [#/Vol] 4.05 10*6/uL Low 4.20-6.00 [facility] Comment on above: Order Comment: Speci men Type: BLOOD SPECIMEN Ordering Facility: [facility] Address: [address] [place] [address] Performed By: #### C OPPER #### [facility] CLIA [id number] [address] [place] [address] [place] WBC (Bld) [#/Vol] 6.58 10*3/uL Normal 3.70-11.00 [facility] Comment on above: Order Comment: Speci men Type: BLOOD SPECIMEN Ordering Facility: [facility] Address: [address] [place] [address] Performed By: #### C OPPER #### [facility] CLIA [id number] [address] [place] [address] [place] CRP SerPl-mCncon 10-30-2024 CRP [Mass/Vol] 0.6 mg/dL Normal <0.9 [facility] Comment on above: Order Comment: Speci men Type: BLOOD SPECIMENOrdering Facility: [facility] Address: [address] [place] [address] Performed By: #### 1 988-5, 4485-9, 4498-2, 2132-9 ####[facility] [id number] [place] [id number] [place] Comprehensive metabolic 2000 panelon 10-30-2024 Albumin [Mass/Vol] 4.3 g/dL Normal 3.9-4.9 [facility] Comment on above: Order Comment: Speci men Type: BLOOD SPECIMEN Ordering Facility: [facility] Address: [address] [place] [address] Performed By: #### 1 989-3 #### [facility] CLIA [id number] [address] [place] [address] [place] ALP [Catalytic activity/Vol] 145 U/L High 38-113 [facility] Comment on above: Order Comment: Speci men Type: BLOOD SPECIMEN Ordering Facility: [facility] Address: [address] [place] [address] Performed By: #### 1 989-3 #### [facility] CLIA [id number] [address] [place] [address] [place] ALT [Catalytic activity/Vol] 38 U/L Normal 10-54 [facility] Comment on above: Order Comment: Speci men Type: BLOOD SPECIMEN Ordering Facility: [facility] Address: [address] [place] [address] Performed By: #### 1 989-3 #### [facility] CLIA [id number] [address] [place] [address] [place] Anion gap [Moles/Vol] 13 mmol/L Normal 8-15 [facility] Comment on above: Order Comment: Speci men Type: BLOOD SPECIMEN Ordering Facility: [facility] Address: [address] [place] [address] Performed By: #### 1 989-3 #### [facility] CLIA [id number] [address] [place] [address] [place] AST [Catalytic activity/Vol] 51 U/L High 14-40 [facility] Comment on above: Order Comment: Speci men Type: BLOOD SPECIMEN Ordering Facility: [facility] Address: [address] [place] [address] Performed By: #### 1 989-3 #### [facility] CLIA [id number] [address] [place] [address] [place] Bilirubin [Mass/Vol] 0.8 mg/dL Normal 0.2-1.3 [facility] Comment on above: Order Comment: Speci men Type: BLOOD SPECIMEN Ordering Facility: [facility] Address: [address] [id number] Performed By: #### 1 989-3 #### [facility] CLIA [id number] [address] [place], [place] [address] [place] Calcium [Mass/Vol] 9.9 mg/dL Normal 8.5-10.2 [facility] Comment on above: Order Comment: Speci men Type: BLOOD SPECIMEN Ordering Facility: [facility] Address: [address] [place], [place] [address] Performed By: #### 1 989-3 #### [facility] CLIA [id number] [address] [place] [address] [place] Chloride [Moles/Vol] 104 mmol/L Normal 98-107 [facility] Comment on above: Order Comment: Speci men Type: BLOOD SPECIMEN Ordering Facility: [facility] Address: [address] [place] [address] Performed By: #### 1 989-3 #### [facility] CLIA [id number] [address] [place] [address] [place] CO2 [Moles/Vol] 22 mmol/L Normal 22-30 [facility] Comment on above: Order Comment: Speci men Type: BLOOD SPECIMEN Ordering Facility: [facility] Address: [address] [place], [place] [address] Performed By: #### 1 989-3 #### [facility] CLIA [id number] [address] [place], [place] [address] [place] Creatinine [Mass/Vol] 0.67 mg/dL Low 0.73-1.22 [facility] Comment on above: Order Comment: Speci men Type: BLOOD SPECIMEN Ordering Facility: [facility] Address: [address] [place], [place] [address] Performed By: #### 1 989-3 #### [facility] CLIA [id number] [address] [place], [place] [address] [place] Creatinine and Glomerular filtration rate.predicted panel (S/P/Bld) 98 mL/min/1.73m??? Normal >=60 [facility] Comment on above: Order Comment: Medina peck Type: BLOOD SPECIMEN Ordering Facility: [facility] Address: [address] [place] [address] Result Comment: Micaela mated Glomerular Filtration Rate [...] GFR. Performed By: #### 1 989-3 #### [facility] CLIA [id number] [address] [place] [address] [place] Glucose [Mass/Vol] 148 mg/dL High 74-99 [facility] Comment on above: Order Comment: Medina peck Type: BLOOD SPECIMEN Ordering Facility: [facility] Address: [address] [place] [address] Result Comment: The [place] [employer] (ADA) provides guidance for cutoff [...] Standards of Medical Care in Diabetes 2016, [place] [employer]. Diabetes Care. 2016.39(Suppl 1). Performed By: #### 1 989-3 #### [facility] CLIA [id number] [address] [place] [address] [place] Potassium [Moles/Vol] 4.7 mmol/L Normal 3.7-5.1 [facility] Comment on above: Order Comment: Speci men Type: BLOOD SPECIMEN Ordering Facility: [facility] Address: [address] [place] [address] Performed By: #### 1 989-3 #### [facility] CLIA [id number] [address] [place] [address] [place] Protein [Mass/Vol] 7.5 g/dL Normal 6.3-8.0 [facility] Comment on above: Order Comment: Speci men Type: BLOOD SPECIMEN Ordering Facility: [facility] Address: [address] [place] [address] Performed By: #### 1 989-3 #### [facility] CLIA [id number] [address] [place] [address] [place] Sodium [Moles/Vol] 139 mmol/L Normal 136-144 [facility] Comment on above: Order Comment: Speci men Type: BLOOD SPECIMEN Ordering Facility: [facility] Address: [address] [place] [address] Performed By: #### 1 989-3 #### [facility] CLIA [id number] [address] [place] [address] [place] Urea nitrogen [Mass/Vol] 12 mg/dL Normal 9-24 [facility] Comment on above: Order Comment: Speci men Type: BLOOD SPECIMEN Ordering Facility: [facility] Address: [address] [place] [address] Performed By: #### 1 989-3 #### [facility] CLIA [id number] [address] [place], [place] [address] [place] DNA ANTIBODY DS BLDon 2024 DNA ANTIBODY 357 IU/mL High <=200 [facility] Comment on above: Order Comment: Speci men Type: BLOOD SPECIMENOrdering Facility: [facility] Address: [address] [place] [address] Result Comment: Nega tive: <200 IU/mL Equivocal: 201-300 IU/mL Moderate Positive: 301-800 IU/mL Strong Positive: >801 IU/mL Performed By: #### D NAAB ####[facility] [id number] [place] [address] [place] DNA ANTIBODY QUALITATIVE INTERPRETATION Positive Abnormal Negative [facility] Comment on above: Order Comment: Speci men Type: BLOOD SPECIMENOrdering Facility: [facility] Address: [address] [place] [address] Performed By: #### D NAAB ####[facility] [id number] [place] [address] [place] ESR Westergren method (Bld) [Velocity]on 10-30-2024 ESR (Bld) [Velocity] 22 mm/h High 0-15 [facility] Comment on above: Order Comment: Speci men Type: BLOOD SPECIMEN Ordering Facility: [facility] Address: [address] [place] [address] Performed By: #### C OPPER #### [facility] CLIA [id number] [address] [place] [address] [place] Free PSA [Mass/Vol]on 2024 Free PSA/Total PSA [Mass fraction] 19 % Normal [facility] Comment on above: Order Comment: Speci men Type: BLOOD SPECIMEN Ordering Facility: [facility] Address: [address] [place] [address] Result Comment: Tota l and free PSA test methodology used is the Electrochemiluminescence Immunoassay by [employer]. Total or free PSA values by differing [...] 15.8% Performed By: #### 1 989-3 #### [facility] CLIA [id number] [address] [place] [address] [place] Prostate specific Ag [Mass/Vol] 4.22 ng/mL High <2.60 [facility] Comment on above: Order Comment: Speci men Type: BLOOD SPECIMEN Ordering Facility: [facility] Address: [address] [place] [address] Result Comment: Tota l PSA test methodology [...] 2003,349:335-42. Performed By: #### 1 989-3 #### [facility] CLIA [id number] [address] [place] [address] [place] LIPID PANEL, NONFASTINGon Cholesterol [Mass/Vol] 182 mg/dL Normal <200 [facility] Comment on above: Order Comment: Speci men Type: BLOOD SPECIMEN Ordering Facility: [facility] Address: [address] [place] [address] Result Comment: <200 mg/dL, Desirable 200-239 mg/dL, Borderline high >239 mg/dL, High Performed By: #### 1 989-3 #### [facility] CLIA [id number] [address] [place] [address] [place] HDL CHOLESTEROL, NF 46 mg/dL Normal >39 [facility] Comment on above: Order Comment: Medina liv Type: BLOOD SPECIMEN Ordering Facility: [facility] Address: [address] [place] [address] Result Comment: 40-5 9 mg/dL, Acceptable >59 mg/dL, High: Negative risk factor for coronary heart disease <40 mg/dL, Low: Positive risk factor for coronary heart disease Performed By: #### 1 989-3 #### [facility] CLIA [id number] [address] [place] [address] OF [facility] LDL CHOLESTEROL, NF 113 mg/dL High <100 [facility] Comment on above: Order Comment: Medina peck Type: BLOOD SPECIMEN Ordering Facility: [facility] Address: [address] [place] [address] Result Comment: <100 mg/dL, Optimal 100-129 mg/dL, Near optimal/above optimal 130-159 mg/dL, Borderline high 160-189 mg/dL, High >189 mg/dL, Very high Secondary prevention optimal LDL Cholesterol levels are recommended to be < 70 mg/dL Performed By: #### 1 989-3 #### [facility] CLIA [id number] [address] [place] [address] [place] LDL/HDL RATIO, NF 2.46 mg/dL Normal <2.54 [facility] Comment on above: Order Comment: [place] [facility] Type: BLOOD SPECIMEN Ordering Facility: [facility] Address: [address] [place] [address] Result Comment: Rhonda barnes: 1. National Cholesterol Education Program ATP III Guideline At-A-Glance Quick Desk Reference: National Heart, Lung, and Blood [place]. National Institutes of Health. 2001: NIH Publication No. 01-3305. 2. An International Atherosclerosis Society position paper: global recommendations for the management of dyslipidemia: executive summary, Atherosclerosis. 2014: 232(2):410-413. Performed By: #### 1 989-3 #### [facility] CLIA [id number] [address] [place] [address] [place] NON HDL CHOL, NF 136 mg/dL High <130 [facility] Comment on above: Order Comment: Medina peck Type: BLOOD SPECIMEN Ordering Facility: [facility] Address: [address] [place] [address] Result Comment: <130 mg/dL, Optimal 130-159 mg/dL, Near optimal/above optimal 160-189 mg/dL, Borderline high 190-219 mg/dL, High >219 mg/dL, Very high Secondary prevention optimal non HDL Cholesterol levels are recommended to be <100 mg/dL Performed By: #### 1 989-3 #### [facility] CLIA [id number] [address] [place] [address] [place] T CHOL/HDL RATIO NF 3.96 mg/dL Normal <5.10 [facility] Comment on above: Order Comment: Medina peck Type: BLOOD SPECIMEN Ordering Facility: [facility] Address: [address] [place] [address] Performed By: #### 1 989-3 #### [facility] CLIA [id number] [address] [place] [address] [place] TRIGLYCERIDES, NF 113 mg/dL Normal <150 [facility] Comment on above: Order Comment: Medina peck Type: BLOOD SPECIMEN Ordering Facility: [facility] Address: [address] [place] [address] Result Comment: <150 mg/dL, Normal 150-199 mg/dL, Borderline high 200-499 mg/dL, High >499 mg/dL, Very high Performed By: #### 1 989-3 #### [facility] CLIA [id number] [address] [place] [address] [place] VLDL CHOLESTEROL, NF 23 mg/dL Normal <30 [facility] Comment on above: Order Comment: Speci men Type: BLOOD SPECIMEN Ordering Facility: [facility] Address: [address] [place] [address] Performed By: #### 1 989-3 #### [facility] CLIA [id number] [address] [place] [address] [place] Urate SerPl-mCncon Urate [Mass/Vol] 5.8 mg/dL Normal 4.0-8.1 [facility] Comment on above: Order Comment: Speci men Type: BLOOD SPECIMEN Ordering Facility: [facility] Address: [address] [place] [address] Performed By: #### 1 989-3 #### [facility] CLIA [id number] [address] [place] [address] [place] Urinalysis complete panel (U )on 10-30-2024 Bacteria LM.HPF (Urine sed) [#/Area] Negative Normal Negative [facility] Comment on above: Order Comment: Speci men Type: BLOOD SPECIMEN Ordering Facility: [facility] Address: [address] [place] [address] Performed By: #### 2 284-8, 2425-2, 2132-03 #### [facility] CLIA [id number] 1 [place] [address] [place] Bilirubin Ql (U) Negative Normal Negative [facility] Comment on above: Order Comment: Speci men Type: BLOOD SPECIMEN Ordering Facility: [facility] Address: [address] [place] [address] Performed By: #### 2 284-8, 0755-2, 9 #### [facility] CLIA [id number] [address] [place] [address] [place] CALCIUM OXALATE CRYSTALS (UA) Few Abnormal None Seen [facility] Comment on above: Order Comment: Speci men Type: BLOOD SPECIMEN Ordering Facility: [facility] Address: [address] [place] [address] Performed By: #### 2 284-8, 2885-2, 2132-03 #### [facility] CLIA [id number] [address] [place] Clarity (Unsp spec) Cloudy Abnormal Clear [facility] Comment on above: Order Comment: Speci men Type: BLOOD SPECIMEN Ordering Facility: [facility] Address: [address] [place] [address] Performed By: #### 2 284-8, 2885-2, 2132-03 #### [facility] CLIA [id number] [address] [place] Color (U) Dark Yellow Abnormal Yellow [facility] Comment on above: Order Comment: Speci men Type: BLOOD SPECIMEN Ordering Facility: [facility] Address: [address] [place] [address] Performed By: #### 2 284-8, 288-2, 2132-03 #### [facility] CLIA [id number] [address] [place] Epithelial cells LM.HPF (Urine sed) [#/Area] None Seen Normal [facility] Comment on above: Order Comment: Speci men Type: BLOOD SPECIMEN Ordering Facility: [facility] Address: [address] [place] [address] Performed By: #### 2 284-8, 288-2, 2132-03 #### [facility] CLIA [id number] 1 [place] [address] [place] Glucose Test strip (U) [Mass/Vol] Negative Normal Negative [facility] Comment on above: Order Comment: Speci men Type: BLOOD SPECIMEN Ordering Facility: [facility] Address: [address] [place] [address] Performed By: #### 2 284-8, 2885-2, 2132-03 #### [facility] CLIA [id number] 1 [place] [address] [place] Hemoglobin Ql (U) Negative Normal Negative [facility] Comment on above: Order Comment: Speci men Type: BLOOD SPECIMEN Ordering Facility: [facility] Address: [address] [place] [address] Performed By: #### 2 284-8, 2885-2, 2132-03 #### [facility] CLIA [id number] [address] [place] Hyaline casts (Urine sed) [#/Area] 4-10 /LPF Abnormal 0 /LPF [facility] Comment on above: Order Comment: Speci men Type: BLOOD SPECIMEN Ordering Facility: [facility] Address: [address] [place] [address] Performed By: #### 2 284-8, 2885-2, 2132-03 #### [facility] CLIA [id number] [address] [place] Ketones Ql (U) Trace Abnormal Negative [facility] Comment on above: Order Comment: Speci men Type: BLOOD SPECIMEN Ordering Facility: [facility] Address: [address] [place] [address] Performed By: #### 2 284-8, 288-2, 2132-03 #### [facility] CLIA [id number] [address] Leukocyte esterase Test strip Ql (U) 1+ Abnormal Negative [facility] Comment on above: Order Comment: Speci men Type: BLOOD SPECIMEN Ordering Facility: [facility] Address: [address] [place] [address] Performed By: #### 2 284-8, 288-2, 2132-03 #### [facility] CLIA [id number] 1 [place] [address] [place] Nitrite Ql (U) Negative Normal Negative [facility] Comment on above: Order Comment: Speci men Type: BLOOD SPECIMEN Ordering Facility: [facility] Address: [address] [place] [address] Performed By: #### 2 284-8, 2885-2, 2132-03 #### [facility] CLIA [id number] [address] [place] [address] [place] pH (U) 5.5 [pH] Normal <8.5 [facility] Comment on above: Order Comment: Speci men Type: BLOOD SPECIMEN Ordering Facility: [facility] Address: [address] [place] [address] Performed By: #### 2 284-8, 2885-2, 2132-03 #### [facility] CLIA [id number] [address] Protein (U) [Mass/Vol] 1+ Abnormal Negative [facility] Comment on above: Order Comment: Speci men Type: BLOOD SPECIMEN Ordering Facility: [facility] Address: [address] [place] [address] Performed By: #### 2 284-8, 2882, 2132-03 #### [facility] CLIA [id number] [address] [place] RBC LM.HPF (Urine sed) [#/Area] 6-10 /HPF Abnormal 0-2 /HPF [facility] Comment on above: Order Comment: Speci men Type: BLOOD SPECIMEN Ordering Facility: [facility] Address: [address] [place] [address] Performed By: #### 2 284-8, 288-2, 2132-03 #### [facility] CLIA [id number] [address] [place] Specific gravity (U) [Rel density] 1.019 Normal 1.005-1.030 [facility] Comment on above: Order Comment: Speci men Type: BLOOD SPECIMEN Ordering Facility: [facility] Address: [address] [place] [address] Performed By: #### 2 284-8, 288-2, 2132-03 #### [facility] CLIA [id number] [address] [place] Urobilinogen Ql (U) 1.0 EU/dL Normal 0.2-1.0 EU/dL [facility] Comment on above: Order Comment: Speci men Type: BLOOD SPECIMEN Ordering Facility: [facility] Address: [address] [id number] Performed By: #### 2 284-8, 2885-2, 9 #### [facility] CLIA [id number] [address] [place] WBC LM.HPF (Urine sed) [#/Area] 6-10 /HPF Abnormal 0-5 /HPF [facility] Comment on above: Order Comment: Speci men Type: BLOOD SPECIMEN Ordering Facility: [facility] Address: [address] [place] [address] Performed By: #### 2 284-8, 2885-2, 9 #### [facility] CLIA [id number] [address] [place] Vit B12 SerPl-mCncon 025 Cobalamin (Vitamin B12) [Mass/Vol] 950 pg/mL Normal 232-1245 [facility] Comment on above: Order Comment: Speci men Type: BLOOD SPECIMENOrdering Facility: [facility] Address: [address] [place], [place] [address] Performed By: #### 1 988-5, 4485-9, 4498-2, 9 ####[facility] [id number] [place] [id number] [place] CNOVSPon 10-23-2024 CNOVSP Visit (SP) Office (H EMAWS) -- NAZARIO HUTTON ([id number]) 1950 M Date Time Provider Department 10/23/24 11:10 AM STEPHANIE ROY During your visit today, we recorded the following information about you: Temperature Pulse Blood pressure Weight 98.6 degrees 83/minute 126/76 93.9 kg Stephanie Roy DO 10/23/2024 2:11 PM Signed Hematologic problem(s): 1) Monoclonal gammopathy. HPI: The patient is a 73 yo male with PMH as outlined below. CAD--FL PCI 2021. 07/2022--Lower GI bleed. 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 Normal [facility] XR BONE SURVEY ROUTINEon XR BONE SURVEY [...] osteolytic, osteosclerotic, or destructive bone lesions identified Developer Evangelist: PSCB Transcribe Date/Time: Oct 29 2024 4:35P Dictated by : KAL PA MD This examination was interpreted and the report reviewed and electronically signed by: KAL PA MD on Oct 29 2024 4:41PM EST [id number] Normal [facility] Calcium.ionized [Moles/Vol]o n 03-31-2025 Calcium.ionized (Bld) [Mass/Vol] 1.25 mmol/L Normal 1.08-1.30 [facility] Comment on above: Order Comment: Speci men Type: BLOOD SPECIMEN Ordering Facility: [facility] Address: [address] [place] [address] Performed By: #### 2 284-8, 2885-2, 2131-9 #### [facility] CLIA [id number] [address] [place] [id number] [place] Calcium.ionized adjusted to pH 7.4 (Bld) [Moles/Vol] 1.24 mmol/L Normal 1.08-1.30 [facility] Comment on above: Order Comment: Speci men Type: BLOOD SPECIMEN Ordering Facility: [facility] Address: [address] [place] [address] Performed By: #### 2 284-8, 2885-2, 9 #### [facility] CLIA [id number] 1 [place] [address] [place] Calculi, Urinary w / Photoon 10-21-2024 . Comment Normal . [facility] Comment on above: Result Comment: Perc entage (Represents the % composition) Performed By: #### L 3400.5105, L3200.1600, L503.7505, L509.7001 #### [facility] [address] [place], [address] 2,8 Dihydroxyad TNP Normal . [facility] Comment on above: Performed By: #### L 3400.5105, L3200.1600, L503.7505, L509.7001 #### [facility] [address] [place], [address] AMM ACID URATE TNP Normal . [facility] Comment on above: Performed By: #### L 3400.5105, L3200.1600, L503.7505, L509.7001 #### [facility] [address] [place], [address] Bilirubin Ql (U) TNP Normal . [facility] Comment on above: Performed By: #### L 3400.5105, L3200.1600, L503.7505, L509.7001 #### [facility] [address] [place], [address] CA BILIRUBINATE TNP Normal . [facility] Comment on above: Performed By: #### L 3400.5105, L3200.1600, L503.7505, L509.7001 #### [facility] [address] [place], [address] CA CARBONATE TNP Normal . [facility] Comment on above: Performed By: #### L 3400.5105, L3200.1600, L503.7505, L509.7001 #### [facility] [address] [place], [address] CA HYDROG PHOS TNP Normal . [facility] Comment on above: Performed By: #### L 3400.5105, L3200.1600, L503.7505, L509.7001 #### [facility] [address] [place], [address] CA OXAL DIHYDR TNP Normal . [facility] Comment on above: Performed By: #### L 3400.5105, L3200.1600, L503.7505, L509.7001 #### [facility] [address] [place], [address] CA OXAL MONOHYD 40 Normal . [facility] Comment on above: Performed By: #### L 3400.5105, L3200.1600, L503.7505, L509.7001 #### [facility] [address] [place], [address] CA Palmitate TNP Normal . [facility] Comment on above: Performed By: #### L 3400.5105, L3200.1600, L503.7505, L509.7001 #### [facility] [address] [place], [address] CA PHOS (hydro) TNP Normal . [facility] Comment on above: Performed By: #### L 3400.5105, L3200.1600, L503.7505, L509.7001 #### [facility] [address] [place], [address] CA PHOSPHATE TNP Normal . [facility] Comment on above: Performed By: #### L 3400.5105, L3200.1600, L503.7505, L509.7001 #### [facility] [address] [place], [address] CA Stearate TNP Normal . [facility] Comment on above: Performed By: #### L 3400.5105, L3200.1600, L503.7505, L509.7001 #### [facility] [address] [place], [address] CELL MATERIAL TNP Normal . [facility] Comment on above: Performed By: #### L 3400.5105, L3200.1600, L503.7505, L509.7001 #### [facility] [address] [place], [address] CHOLESTEROL TNP Normal . [facility] Comment on above: Performed By: #### L 3400.5105, L3200.1600, L503.7505, L509.7001 #### [facility] [address] [place], [address] Color (U) Brown Normal . [facility] Comment on above: Performed By: #### L 3400.5105, L3200.1600, L503.7505, L509.7001 #### [facility] [address] [place], [address] COMMENT TNP Normal . [facility] Comment on above: Performed By: #### L 3400.5105, L3200.1600, L503.7505, L509.7001 #### [facility] [address] [place], [place], [address] COMMENT Comment Normal . [facility] Comment on above: Result Comment: Calc ulus received wet. Wet calculi must be dried before analysis, which delays reporting of results. Leaving calculi wet (such as water, saline, blood, urine) may lead to changes in composition. Performed By: #### L 3400.5105, L3200.1600, L503.7505, L509.7001 #### [facility] [address] [place], [place], [address] Result Comment: Phys ician questions regarding Calculi Analysis contact [facility] at: [phone]. Result Comment: Calc tiffany report will follow via computer, mail or purchasing coordinator delivery. CYSTINE TNP Normal . [facility] Comment on above: Performed By: #### L 3400.5105, L3200.1600, L503.7505, L509.7001 #### [facility] [address] [place], [address] Disclaimer Comment Normal . [facility] Comment on above: Result Comment: This test was developed and its performance characteristics determined by [facility]. It has not been cleared or approved by the Food and Drug Administration. Performed at: [address] [id number] Cable Splicer Helper: Jose Harris PhD, Phone: [phone] Performed By: #### L 3400.5105, L3200.1600, L503.7505, L509.7001 #### [facility] [address] [place], [place], [address] DRIED BLOOD TNP Normal . [facility] Comment on above: Performed By: #### L 3400.5105, L3200.1600, L503.7505, L509.7001 #### [facility] [address] [facility] [place], [address] Drug/Metabolite TNP Normal . [facility] Comment on above: Performed By: #### L 3400.5105, L3200.1600, L503.7505, L509.7001 #### [facility] [address] [place], [address] MAG EMMETT PHOS TNP Normal . [facility] Comment on above: Performed By: #### L 3400.5105, L3200.1600, L503.7505, L509.7001 #### [facility] [address] [place], [address] NA ACID URATE TNP Normal . [facility] Comment on above: Performed By: #### L 3400.5105, L3200.1600, L503.7505, L509.7001 #### [facility] [address] [place], [address] NEWBERYITE TNP Normal . [facility] Comment on above: Performed By: #### L 3400.5105, L3200.1600, L503.7505, L509.7001 #### [facility] [address] [place], [address] Other Component TNP Normal . [facility] Comment on above: Performed By: #### L 3400.5105, L3200.1600, L503.7505, L509.7001 #### [facility] [address] [place], [address] PHOTO Comment Normal . [facility] Comment on above: Result Comment: Phot ograph will follow under a separate cover Performed By: #### L 3400.5105, L3200.1600, L503.7505, L509.7001 #### [facility] [address] [place], [address] SIZE 7x5 Normal . [facility] Comment on above: Result Comment: Mult iple pieces received. Dimensions of the largest piece reported. Performed By: #### L 3400.5105, L3200.1600, L503.7505, L509.7001 #### [facility] [address] [place], [address] SOURCE Comment Normal . [facility] Comment on above: Result Comment: Not provided Performed By: #### L 3400.5105, L3200.1600, L503.7505, L509.7001 #### [facility] [address] [place], [address] TRIAMTERENE TNP Normal . [facility] Comment on above: Performed By: #### L 3400.5105, L3200.1600, L503.7505, L509.7001 #### [facility] [address] [place], [address] URIC ACID 60 Normal . [facility] Comment on above: Performed By: #### L 3400.5105, L3200.1600, L503.7505, L509.7001 #### [facility] [address] [place], [address] URIC ACID DIHYD TNP Normal . [facility] Comment on above: Performed By: #### L 3400.5105, L3200.1600, L503.7505, L509.7001 #### [facility] [address] [place], [address] WEIGHT 88 mg Normal . [facility] Comment on above: Performed By: #### L 3400.5105, L3200.1600, L503.7505, L509.7001 #### [facility] [address] [place], [address] XANTHINE TNP Normal . [facility] Comment on above: Performed By: #### L 3400.5105, L3200.1600, L503.7505, L509.7001 #### [facility] [address] [place], [address] MONOCLONAL PROT 24 UR W/INTE RPon 10-21-2024 STAFF REVIEW ([facility]) Reviewed by Haydee Phelps MD Normal [facility] Comment on above: Order Comment: Speci men Type: BLOOD SPECIMEN Ordering Facility: [facility] Address: [address] [place] [address] Performed By: #### 2 284-8, 2885-2, 2131-9 #### [facility] CLIA [id number] 1 [place] [address] [place] UMPA RESULT No M protein is identified. Normal No M protein is identified. [facility] Comment on above: Order Comment: Speci men Type: BLOOD SPECIMEN Ordering Facility: [facility] Address: [address] [place] [address] Performed By: #### 2 284-8, 2885-2, 9 #### [facility] CLIA [id number] 1 [place] [address] [place] PROT ELEC UR 24HR W/M SPIKE (P)on 10-21-2024 Albumin/Globulin Elph (24H U) [Mass ratio] 44.50 % Normal [facility] Comment on above: Order Comment: Speci men Type: URINE SPECIMENOrdering Facility: [facility] Address: [address] [place] [address] Performed By: #### L [id number] ####[facility] [id number] [place] [address] [place] Alpha 1 globulin Elph (24H U) [Mass fraction] 5.50 % Normal [facility] Comment on above: Order Comment: Speci men Type: URINE SPECIMENOrdering Facility: [facility] Address: [address] [place] [address] Performed By: #### L [id number] ####[facility] [id number] [place] [address] [place] Alpha 2 globulin Elph (24H U) [Mass fraction] 17.65 % Normal [facility] Comment on above: Order Comment: Speci men Type: URINE SPECIMENOrdering Facility: [facility] Address: [address] [place] [address] Performed By: #### L [id number] ####[facility] [id number] [place] [address] [place] Beta globulin Elph (24H U) [Mass fraction] 19.74 % Normal [facility] Comment on above: Order Comment: Speci men Type: URINE SPECIMENOrdering Facility: [facility] Address: [address] [place] [address] Performed By: #### L [id number] ####[facility] [id number] [place] [address] [place] Gamma globulin Elph (24H U) [Mass fraction] 12.62 % Normal [facility] Comment on above: Order Comment: Speci men Type: URINE SPECIMENOrdering Facility: [facility] Address: [address] [place] [address] Performed By: #### L [id number] ####[facility] [id number] [place] [address] [place] Protein Fractions Elph Kamaljit (24H U) [Interp] No definitive M protein is identified on protein electrophoresis. Normal No definitive M protein is identified on protein electrophore sis. [facility] Comment on above: Order Comment: Speci men Type: URINE SPECIMENOrdering Facility: [facility] Address: [address] [place] [address] Performed By: #### L [id number] ####[facility] [id number] [place] [address] [place] Protein.monoclonal Elph (24H U) [Mass/Time] 0.00 g/24hr Normal [facility] Comment on above: Order Comment: Speci men Type: URINE SPECIMENOrdering Facility: [facility] Address: [address] [place] [address] Performed By: #### L [id number] ####[facility] [id number] [address] STAFF REVIEW ([id number]) Reviewed by Haydee Phelps MD Normal [facility] Comment on above: Order Comment: Speci men Type: URINE SPECIMENOrdering Facility: [facility] Address: [address] [place] [address] Performed By: #### L [id number] ####[facility] [id number] [place] [address] [place] Prot 24h Ur-mRateon 10-22-19 Protein (24H U) [Mass/Time] 0.11 g/24 Hr Normal <0.15 [facility] Comment on above: Order Comment: Speci men Type: BLOOD SPECIMEN Ordering Facility: [facility] Address: [address] [place] [address] Result Comment: Adul t Proteinuria Categories: <0.15 g/24 hours is considered normal to mildly increased 0.15 - 0.50 g/24 hours is considered moderately increased >0.50 g/24 hours is considered severely increased KDIGO. (2013). KDIGO 2012 Clinical Practice Guideline for the Evaluation and Management of Chronic Kidney Disease. Official Journal of the International Society of Nephrology, 3(1), 1-150. Performed By: #### 2 2314-9, 5195-3, 30449-3 #### [facility] CLIA [id number] [address] [place] [address] [place] Protein (24H U) [Mass/Time]o n 10-21-2024 PERIOD (HRS) 24 hr Normal [facility] Comment on above: Order Comment: Speci men Type: BLOOD SPECIMEN Ordering Facility: [facility] Address: [address] [place] [address] Performed By: #### 2 2314-9, 5195-3, 31232-7 #### [facility] CLIA [id number] [address] [place] [address] [place] Specimen volume (24H U) 2.65 L Normal [facility] Comment on above: Order Comment: Speci men Type: BLOOD SPECIMEN Ordering Facility: [facility] Address: [address] [place] [address] Performed By: #### 2 2314-9, 5195-3, 50800-3 #### [facility] CLIA [id number] [address] [place] [address] [place] Surgical pathology reportOrd ered By: Payton Norton on 10-15-2024 Surgical pathology study [facility] Ammonium urate crystals Infr ared spectroscopy Ql (Stone)Ordered By: Geovani Barron on 10-11-2024 Stone Ammonium Acid Urate [facility] Comment on above: Test not performed Ammonium urate crystals dete ction in stone by infrared spectroscopyOrdered By: Geovani Barron on 10-11-2024 Ammonium urate crystals Infrared spectroscopy Ql (Stone) [facility] Comment on above: Test not performed Blood.dried (Stone) [Mass fr action]Ordered By: Geovani Barron on 10-11-2024 Stone Dried Blood [facility] Comment on above: Test not performed Calcium hydrogen phosphate c rystals Infrared spectroscopy Ql (Stone)Ordered By: Geovani Barron on 10-11-2024 Stone Calcium Hydrogen Phosphate [facility] Comment on above: Test not performed Calcium hydrogen phosphate c rystals detection in stone by infrared spectroscopyOrdered By: Geovani Barron on 10-11-2024 Calcium hydrogen phosphate crystals Infrared spectroscopy Ql (Stone) [facility] Comment on above: Test not performed Calcium oxalate dihydrate cr ystals Infrared spectroscopy Ql (Stone)Ordered By: Geovani Barron on 10-11-2024 Stone Calcium Oxalate Dihydrate [facility] Comment on above: Test not performed Calcium oxalate dihydrate cr ystals detection in stone by infrared spectroscopyOrdered By: Geovani Barron on 10-11-2024 Calcium oxalate dihydrate crystals Infrared spectroscopy Ql (Stone) [facility] Comment on above: Test not performed Cellular material Est (Stone ) [Mass/Mass]Ordered By: Geovani Barron on 10-11-2024 Stone Cellular Material [facility] Comment on above: Test not performed Cholesterol measurementOrder ed By: Geovani Barron on 10-11-2024 Stone Cholesterol [facility] Comment on above: Test not performed Color (Unsp spec)Ordered By: Geovani Barron on 10-11-2024 Stone Color Brown . [facility] Color of specimen determinat ionOrdered By: Geovani Barron on 10-11-2024 Color (Unsp spec) Brown . [facility] Cystine (Unsp spec) [Moles/V ol]Ordered By: Geovani Barron on 10-11-2024 Stone Cystine [facility] Comment on above: Test not performed Cystine measurementOrdered B y: Geovani Barron on 10-11-2024 Cystine (Unsp spec) [Moles/Vol] [facility] Comment on above: Test not performed Determination of volume of c alculusOrdered By: Geovani Barron on 10-11-2024 Size (Stone) [Entitic vol] 7x5 mm . [facility] Comment on above: Multiple pieces rece ived. Dimensions of the largest piecereported. Estimation of cellular mater ial in calculus (mass/mass)Ordered By: Geovani Barron on 10-11-2024 Cellular material Est (Stone) [Mass/Mass] [facility] Comment on above: Test not performed External camera medical phot ographyOrdered By: Geovani Barron on 10-11-2024 Urinary Stone Photo Note Comment . [facility] Comment on above: Photograph will foll ow under a separate cover Laboratory - Miscellaneous t estsOrdered By: Geovani Barron on 10-11-2024 Service comment (Unsp spec) [Interp] [facility] Comment on above: Test not performed Service comment (Unsp spec) [Interp] Comment . [facility] Comment on above: Calculus received we t. Wet calculi must be dried beforeanalysis, which delays reporting of results. Leaving calculiwet (such as water, saline, blood, urine) may lead tochanges in composition. Physician questions regarding Calculi Analysis contactLabcorp at: [phone]. Calculi report will follow via computer, mail or courierdelivery. Measurement of proportion of calculus composed of dried blood (mass/mass)Ordered By: Geovani Barron on 10-11-2024 Blood.dried (Stone) [Mass fraction] [facility] Comment on above: Test not performed Measurement of weight of sto neOrdered By: Geovani Barron on 10-11-2024 Weight (Stone) 88 mg . [facility] Newberyite crystals Infrared spectroscopy Ql (Stone)Ordered By: Geovani Barron on 10-11-2024 Stone Newberyite [facility] Comment on above: Test not performed Newberyite crystals detectio n in stone by infrared spectroscopyOrdered By: Geovani Barron on 10-11-2024 Newberyite crystals Infrared spectroscopy Ql (Stone) [facility] Comment on above: Test not performed No Panel InformationOrdered By: Geovani Barron on 10-11-2024 Stone 2,8 Dihydroxyadenine [facility] Comment on above: Test not performed Stone Analysis (T) Comment . [facility] Comment on above: Percentage (Represen ts the % composition) Stone Bilirubin [facility] Comment on above: Test not performed Stone Calcium Bilirubinate [facility] Comment on above: Test not performed Stone Calcium Carbonate [facility] Comment on above: Test not performed Stone Calcium Hydroxyl-Phosphate [facility] Comment on above: Test not performed Stone Calcium Oxalate Monohydrate 40 % . [facility] Stone Calcium Palmitate [facility] Comment on above: Test not performed Stone Calcium Phosphate Carbonate [facility] Comment on above: Test not performed Stone Calcium Stearate [facility] Comment on above: Test not performed Stone Drug or Metabolite [facility] Comment on above: Test not performed Stone Other Component(s) [facility] Comment on above: Test not performed Stone Xanthine [facility] Comment on above: Test not performed Origin Nom (Stone)Ordered By : Geovani Barron on 10-11-2024 Stone Source Comment . [facility] Comment on above: Not provided Origin of StoneOrdered By: Irma Barron on 10-11-2024 Origin Nom (Stone) Comment . [facility] Comment on above: Not provided Service comment (Unsp spec) [Interp]Ordered By: Geovani Barron on 10-11-2024 Stone Comment [facility] Comment on above: Test not performed Stone Comment 2 Comment . [facility] Comment on above: Calculus received we t. Wet calculi must be dried beforeanalysis, which delays reporting of results. Leaving calculiwet (such as water, saline, blood, urine) may lead tochanges in composition. Stone Comment 3 Comment . [facility] Comment on above: Physician questions regarding Calculi Analysis [facility]Ed[facility] Centerco at: [phone]. Stone Comment 4 Comment . [facility] Comment on above: Calculi report will follow via computer, mail or courierdelivery. Size (Stone) [Entitic vol]Or dered By: Geovani Barron on 10-11-2024 Stone Size 7x5 mm . [facility] Comment on above: Multiple pieces rece ived. Dimensions of the largest piecereported. Sodium urate crystals Infrar ed spectroscopy Ql (Stone)Ordered By: Geovani Barron on 10-11-2024 Stone Sodium Acid Urate [facility] Comment on above: Test not performed Sodium urate crystals detect ion in stone by infrared spectroscopyOrdered By: Geovani Barron on 10-11-2024 Sodium urate crystals Infrared spectroscopy Ql (Stone) [facility] Comment on above: Test not performed Surgery Specimen Level Ion 0 10-11-2024 Surgery Specimen Level I Patient Age/Sex Location Account Attending Physician NAZARIO HUTTON 73/M [facility] [id number] Dr. Geovani Barron MD Specimen: [id number] Received: 10/14/24 Status: ROSEMARIE Corrigan Num: [id number] Spec Type: Calculi Subm Dr: Dr. Geovani [...] and entirely submitted for chemical analysis. 10/14/2024 CPT:55088 Patient Age/Sex Location Account Attending Physician NAZARIO HUTTON 73/M [facility] [id number] Dr. Geovani Barron MD Signed (signature on file) Dr. Payton Norton MD 10/15/24 1717 Normal [facility] Comment on above: Performed By: #### L 3400.5105, L3200.1600, L503.7505, L509.7001 #### [facility] [address] [place], [place], [address] Triamterene crystals Infrare d spectroscopy Ql (Stone)Ordered By: Geovani Barron on 10-11-2024 Stone Triamterene [facility] Comment on above: Test not performed Triamterene crystals detecti on in stone by infrared spectroscopyOrdered By: Geovani Barron on 10-11-2024 Triamterene crystals Infrared spectroscopy Ql (Stone) [facility] Comment on above: Test not performed Triple phosphate crystals In frared spectroscopy Ql (Stone)Ordered By: Geovani Barron on 10-11-2024 Stone Magnesium Ammonium Phosphate [facility] Comment on above: Test not performed Triple phosphate crystals de tection in stone by infrared spectroscopyOrdered By: Geovani Barron on 10-11-2024 Triple phosphate crystals Infrared spectroscopy Ql (Stone) [facility] Comment on above: Test not performed Urate crystals Infrared spec troscopy Ql (Stone)Ordered By: Geovani Barron on 10-11-2024 Stone Uric Acid 60 % . [facility] Urate dihydrate crystals Inf rared spectroscopy Ql (Stone)Ordered By: Geovani Barron on 10-11-2024 Stone Uric Acid Dihydrate [facility] Comment on above: Test not performed Uric acid crystals detection in stone by infrared spectroscopyOrdered By: Geovani Barron on 10-11-2024 Urate crystals Infrared spectroscopy Ql (Stone) 60 % . [facility] Uric acid dihydrate crystals detection in stone by infrared spectroscopyOrdered By: Geovani Barron on 10-11-2024 Urate dihydrate crystals Infrared spectroscopy Ql (Stone) [facility] Comment on above: Test not performed Weight (Stone)Ordered By: Angella Barron on 10-11-2024 Stone Weight 88 mg . [facility] Baljit 09-27-2024 MITCHELL Telephone (JENNIFER) -- NAZARIO HUTTON ([id number]) 1950 M Date Time Provider Department 09/27/24 [...] visit scheduled with patient. Patient aware to shredder picker 24 hr urine container prior to [...] Diagnosis:Hypercalcemia [E83.52] Order(s):CALCIUM, IONIZED [SQICA] Order #: [id number] FUTURE PROT ELEC UR 24HR W/M SPIKE AND INTERP [[id number]] Order #: [id number]. #:[id number] MONOCLONAL PROT 24 UR W/INTERP [[id number]] Order #: [id number]. #:[id number] PROTEIN, 24 HOUR URINE [[id number]] Reflex Order#: [id number] (Ord#:[id number])Spec. #:[id number] PROT ELEC UR 24HR W/M SPIKE (P) [[id number]] Reflex Order#: [id number] (Ord#:[id number])Spec. 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 Normal [facility] CBC W Auto Differential pane l (Bld)on 09-25-2024 Basophils (Bld) [#/Vol] 0.08 10*3/uL [facility] Basophils/100 WBC (Bld) 0.9 % [facility] Differential cell count method Nom (Bld) Auto [facility] Eosinophils (Bld) [#/Vol] 1.07 10*3/uL [facility] Eosinophils/100 WBC (Bld) 12.4 % [facility] Erythrocyte distribution width (RBC) [Ratio] 13.5 % 11.5 - 15.0 % [facility] Hematocrit (Bld) [Volume fraction] 43.8 % 39.0 - 51.0 % [facility] Hemoglobin (Bld) [Mass/Vol] 15 g/dL 13.0 - 17.0 g/dL [facility] Immature granulocytes (Bld) [#/Vol] 0.03 10*3/uL [facility] Immature granulocytes/100 WBC (Bld) 0.3 % [facility] Interpretation and review of laboratory results Abnormal [facility] Lymphocytes (Bld) [#/Vol] 0.78 10*3/uL Low [facility] Lymphocytes/100 WBC (Bld) 9.1 % [facility] MCH (RBC) [Entitic mass] 34.4 pg High 26.0 - 34.0 pg [facility] MCHC (RBC) [Mass/Vol] 34.2 g/dL 30.5 - 36.0 g/dL [facility] MCV (RBC) [Entitic vol] 100.5 fL High 80.0 - 100.0 fL [facility] Monocytes (Bld) [#/Vol] 0.82 10*3/uL [facility] Monocytes/100 WBC (Bld) 9.5 % [facility] Neutrophils (Bld) [#/Vol] 5.82 10*3/uL [facility] Neutrophils/100 WBC (Bld) 67.8 % [facility] Nucleated RBC (Bld) [#/Vol] [facility] Nucleated RBC/100 WBC (Bld) [Ratio] 0 % /100 WBC [facility] Platelet mean volume (Bld) [Entitic vol] 10.1 fL 9.0 - 12.7 fL [facility] Platelets (Bld) [#/Vol] 245 10*3/uL [facility] RBC (Bld) [#/Vol] 4.36 10*6/uL 4.20 - 6.0 0 m/uL [facility] WBC (Bld) [#/Vol] 8.6 10*3/uL [facility] Basophils (Bld) [#/Vol] 0.08 10*3/uL Normal <0.11 [facility] Comment on above: Order Comment: Speci men Type: BLOOD SPECIMEN Ordering Facility: [facility] Address: [address] [place], [place] [address] Performed By: #### 2 2314-9, 5195-3, 64204-9 #### [facility] CLIA [id number] [address] [place] [address] [place] Basophils/100 WBC (Bld) 0.9 % Normal [facility] Comment on above: Order Comment: Speci men Type: BLOOD SPECIMEN Ordering Facility: [facility] Address: [address] [place] [address] Performed By: #### 2 2314-9, 5-3, 48040-1 #### [facility] CLIA [id number] [address] [place] [address] [place] Differential cell count method Nom (Bld) Auto Normal [facility] Comment on above: Order Comment: Speci men Type: BLOOD SPECIMEN Ordering Facility: [facility] Address: [address] [place] [address] Performed By: #### 2 2314-9, 3, 03395-7 #### [facility] CLIA [id number] [address] [place] [address] [place] Eosinophils (Bld) [#/Vol] 1.07 10*3/uL High <0.46 [facility] Comment on above: Order Comment: Speci men Type: BLOOD SPECIMEN Ordering Facility: [facility] Address: [address] [place] [address] Performed By: #### 2 2314-9, 3, 15565-2 #### [facility] CLIA [id number] [address] [place] [address] [place] Eosinophils/100 WBC (Bld) 12.4 % Normal [facility] Comment on above: Order Comment: Speci men Type: BLOOD SPECIMEN Ordering Facility: [facility] Address: [address] [place] [address] Performed By: #### 2 2314-9, 53, 61997-0 #### [facility] CLIA [id number] [address] [place] [address] [place] Erythrocyte distribution width (RBC) [Ratio] 13.5 % Normal 11.5-15.0 [facility] Comment on above: Order Comment: Speci men Type: BLOOD SPECIMEN Ordering Facility: [facility] Address: [address] [place] [address] Performed By: #### 2 2314-9, 5195-3, 80668-7 #### [facility] CLIA [id number] [address] [place] [address] [place] Hematocrit (Bld) [Volume fraction] 43.8 % Normal 39.0-51.0 [facility] Comment on above: Order Comment: Speci men Type: BLOOD SPECIMEN Ordering Facility: [facility] Address: [address] [place] [address] Performed By: #### 2 2314-9, 5195-3, 68516-4 #### [facility] CLIA [id number] [address] [place] [address] [place] Hemoglobin (Bld) [Mass/Vol] 15.0 g/dL Normal 13.0-17.0 [facility] Comment on above: Order Comment: Speci men Type: BLOOD SPECIMEN Ordering Facility: [facility] Address: [address] [place] [address] Performed By: #### 2 2314-9, 5195-3, 03242-6 #### [facility] CLIA [id number] [address] [place] [address] [place] Immature granulocytes (Bld) [#/Vol] 0.03 10*3/uL Normal <0.10 [facility] Comment on above: Order Comment: Speci men Type: BLOOD SPECIMEN Ordering Facility: [facility] Address: [address] [place] [address] Performed By: #### 2 2314-9, 5195-3, 66341-9 #### [facility] CLIA [id number] [address] [place] [place] [address] [place] Immature granulocytes/100 WBC (Bld) 0.3 % Normal [facility] Comment on above: Order Comment: Speci men Type: BLOOD SPECIMEN Ordering Facility: [facility] Address: [address] [place] [address] Performed By: #### 2 2314-9, 5195-3, 29457-0 #### [facility] CLIA [id number] [address] [place] [address] [place] Lymphocytes (Bld) [#/Vol] 0.78 10*3/uL Low 1.00-4.00 [facility] Comment on above: Order Comment: Speci men Type: BLOOD SPECIMEN Ordering Facility: [facility] Address: [address] [place] [address] Performed By: #### 2 2314-9, 51953, 51265-8 #### [facility] CLIA [id number] [address] [place] [address] [place] Lymphocytes/100 WBC (Bld) 9.1 % Normal [facility] Comment on above: Order Comment: Speci men Type: BLOOD SPECIMEN Ordering Facility: [facility] Address: [address] [place] [address] Performed By: #### 2 2314-9, 5-3, 92058-7 #### [facility] CLIA [id number] [address] [place] [address] [place] MCH (RBC) [Entitic mass] 34.4 pg High 26.0-34.0 [facility] Comment on above: Order Comment: Speci men Type: BLOOD SPECIMEN Ordering Facility: [facility] Address: [address] [place] [address] Performed By: #### 2 2314-9, 5-3, 67347-8 #### [facility] CLIA [id number] [address] [place] [address] [place] MCHC (RBC) [Mass/Vol] 34.2 g/dL Normal 30.5-36.0 [facility] Comment on above: Order Comment: Speci men Type: BLOOD SPECIMEN Ordering Facility: [facility] Address: [address] [place] [address] Performed By: #### 2 2314-9, 5194-3, 10104-3 #### [facility] CLIA [id number] [address] [place] [address] [place] MCV (RBC) [Entitic vol] 100.5 fL High 80.0-100.0 [facility] Comment on above: Order Comment: Speci men Type: BLOOD SPECIMEN Ordering Facility: [facility] Address: [address] [place] [address] Performed By: #### 2 2314-9, 3, 31099-8 #### [facility] CLIA [id number] [address] [place] [address] [place] Monocytes (Bld) [#/Vol] 0.82 10*3/uL Normal <0.87 [facility] Comment on above: Order Comment: Speci men Type: BLOOD SPECIMEN Ordering Facility: [facility] Address: [address] [place] [address] Performed By: #### 2 2314-9, 3, 13015-8 #### [facility] CLIA [id number] [address] [place] [address] [place] Monocytes/100 WBC (Bld) 9.5 % Normal [facility] Comment on above: Order Comment: Speci men Type: BLOOD SPECIMEN Ordering Facility: [facility] Address: [address] [place] [address] Performed By: #### 2 2314-9, 3, 21539-0 #### [facility] CLIA [id number] [address] [place] [address] [place] Neutrophils (Bld) [#/Vol] 5.82 10*3/uL Normal 1.45-7.50 [facility] Comment on above: Order Comment: Speci men Type: BLOOD SPECIMEN Ordering Facility: [facility] Address: [address] [place] [address] Performed By: #### 2 2314-9, 5-3, 08796-7 #### [facility] CLIA [id number] [address] [place] [address] [place] Neutrophils/100 WBC (Bld) 67.8 % Normal [facility] Comment on above: Order Comment: Speci men Type: BLOOD SPECIMEN Ordering Facility: [facility] Address: [address] [place] [address] Performed By: #### 2 2314-9, 53, 16716-6 #### [facility] CLIA [id number] [address] [place] [address] [place] Nucleated RBC (Bld) [#/Vol] 10*3/uL Normal <0.01 [facility] Comment on above: Order Comment: Speci men Type: BLOOD SPECIMEN Ordering Facility: [facility] Address: [address] [place] [address] Performed By: #### 2 2314-9, 5-3, 47033-6 #### [facility] CLIA [id number] [address] [place] [address] [place] Nucleated RBC/100 WBC (Bld) [Ratio] 0.0 /100 WBC Normal [facility] Comment on above: Order Comment: Speci men Type: BLOOD SPECIMEN Ordering Facility: [facility] Address: [address] [place] [address] Performed By: #### 2 2314-9, 5195-3, 89134-7 #### [facility] CLIA [id number] [address] [place] [address] [place] Platelet mean volume (Bld) [Entitic vol] 10.1 fL Normal 9.0-12.7 [facility] Comment on above: Order Comment: Speci men Type: BLOOD SPECIMEN Ordering Facility: [facility] Address: [address] [place] [address] Performed By: #### 2 2314-9, 5195-3, 88642-0 #### [facility] CLIA [id number] [address] [place] [address] [place] Platelets (Bld) [#/Vol] 245 10*3/uL Normal 150-400 [facility] Comment on above: Order Comment: Speci men Type: BLOOD SPECIMEN Ordering Facility: [facility] Address: [address] [place] [address] Performed By: #### 2 2314-9, 5195-3, 43976-5 #### [facility] CLIA [id number] [address] [place] [address] [place] RBC (Bld) [#/Vol] 4.36 10*6/uL Normal 4.20-6.00 [facility] Comment on above: Order Comment: Speci men Type: BLOOD SPECIMEN Ordering Facility: [facility] Address: [address] [place] [address] Performed By: #### 2 2314-9, 5195-3, 72253-7 #### [facility] CLIA [id number] [address] [place] [address] [place] WBC (Bld) [#/Vol] 8.60 10*3/uL Normal 3.70-11.00 [facility] Comment on above: Order Comment: Speci men Type: BLOOD SPECIMEN Ordering Facility: [facility] Address: [address] [place] [address] Performed By: #### 2 2314-9, 5195-3, 96693-4 #### [facility] CLIA [id number] [address] [place] [address] [place] CNOVSPon 09-25-2024 CNOVSP Visit (SP) Office ( [facility]) -- NAZARIO HUTTON ([id number]) 1950 M Date Time Provider Department 09/25/24 [...] yo male with PMH as outlined below. CAD--FL PCI 4 stents 2021. 07/2022--Lower GI bleed. [...] due to lower GI bleed from diverticulosis) Financial Accounting Analyst's nodules 03/15/2021 Valvular heart disease 05/18/2023 Echo [...] Father 53 Alzheimer's Disease No Family History [place] (more content not included)... Normal [facility] COPPER BLOODon 09-25-2024 Copper [Mass/Vol] 127 ug/dL Normal 70-[address] [facility] Comment on above: Order Comment: Speci men Type: BLOOD SPECIMEN Ordering Facility: [facility] Address: [address] [place] [address] Result Comment: This test was developed, and its performance characteristics determined by the [facility] Department of Pathology and Laboratory Medicine. It has not been cleared or approved by the FDA. The [facility] Department of Pathology and Laboratory Medicine is regulated under CLIA as qualified to perform high-complexity testing. This test is used for clinical purposes. It should not be regarded as investigational or for research. Performed By: #### C OPPER #### [facility] CLIA [id number] [address] [place], [place] [address] [address] [place] Comprehensive metabolic 2000 panelOrdered By: Blanca Odonnell on 09-25-2024 Albumin [Mass/Vol] 4.6 g/dL 3.9 - 4.9 g/dL [facility] ALP [Catalytic activity/Vol] 162 U/L High 38 - 113 U/L [facility] ALT [Catalytic activity/Vol] 36 U/L 10 - 54 U/L [facility] Anion gap [Moles/Vol] 13 mmol/L 8 - 15 mmol/L [facility] AST [Catalytic activity/Vol] 55 U/L High 14 - 40 U/L [facility] Bilirubin [Mass/Vol] 0.7 mg/dL 0.2 - 1 .3 mg/dL [facility] Calcium [Mass/Vol] 10.3 mg/dL High 8.5 - 10. 2 mg/dL [facility] Chloride [Moles/Vol] 101 mmol/L 98 - 10 7 mmol/L [facility] CO2 [Moles/Vol] 21 mmol/L Low 22 - 30 mmol/L [facility] Creatinine [Mass/Vol] 0.67 mg/dL Low 0.73 - 1.22 mg/dL [facility] GFR/1.73 sq M.predicted among non-blacks MDRD (S/P/Bld) [Vol rate/Area] 99 mL/min/{1.73_m2} - PINF [facility] Comment on above: Estimated Glomerular Filtration [...] 101 mg/dL High 74 - 99 mg/dL [facility] Comment on above: The [place] Diabete s Association (ADA) provides guidance for [...] Standards of Medical Care in Diabetes 2016, [place] Diabetes Association. Diabetes Care. 2016.39(Suppl 1). Interpretation and review of laboratory results Abnormal [facility] Potassium [Moles/Vol] 4.7 mmol/L 3.7 - 5.1 mmol/L [facility] Protein [Mass/Vol] 8.2 g/dL High 6.3 - 8.0 g/dL [facility] Sodium [Moles/Vol] 135 mmol/L Low 136 - 144 mmol/L [facility] Urea nitrogen [Mass/Vol] 14 mg/dL 9 - 24 mg/dL [facility] Comprehensive metabolic 2000 panelon 09-25-2024 Albumin [Mass/Vol] 4.6 g/dL Normal 3.9-4.9 [facility] Comment on above: Order Comment: Speci men Type: BLOOD SPECIMEN Ordering Facility: [facility] Address: [address] [place] [address] Performed By: #### C OPPER #### [facility] CLIA [id number] [address] [place] [address] [place] ALP [Catalytic activity/Vol] 162 U/L High 38-113 [facility] Comment on above: Order Comment: Speci men Type: BLOOD SPECIMEN Ordering Facility: [facility] Address: [address] [place] [address] Performed By: #### C OPPER #### [facility] CLIA [id number] [address] [place] [address] [place] ALT [Catalytic activity/Vol] 36 U/L Normal 10-54 [facility] Comment on above: Order Comment: Speci men Type: BLOOD SPECIMEN Ordering Facility: [facility] Address: [address] [place] [address] Performed By: #### C OPPER #### [facility] CLIA [id number] [address] [place] [address] [place] Anion gap [Moles/Vol] 13 mmol/L Normal 8-15 [facility] Comment on above: Order Comment: Speci men Type: BLOOD SPECIMEN Ordering Facility: [facility] Address: [address] [place] [address] Performed By: #### C OPPER #### [facility] CLIA [id number] [address] [place] [address] [place] AST [Catalytic activity/Vol] 55 U/L High 14-40 [facility] Comment on above: Order Comment: Speci men Type: BLOOD SPECIMEN Ordering Facility: [facility] Address: [address] [place] [address] Performed By: #### C OPPER #### [facility] CLIA [id number] [address] [place] [address] [place] Bilirubin [Mass/Vol] 0.7 mg/dL Normal 0.2-1.3 [facility] Comment on above: Order Comment: Speci men Type: BLOOD SPECIMEN Ordering Facility: [facility] Address: [address] [place] [address] Performed By: #### C OPPER #### [facility] CLIA [id number] [address] [place] [address] [place] Calcium [Mass/Vol] 10.3 mg/dL High 8.5-10.2 [facility] Comment on above: Order Comment: Speci men Type: BLOOD SPECIMEN Ordering Facility: [facility] Address: [address] [place] [address] Performed By: #### C OPPER #### [facility] CLIA [id number] [address] [place] [address] [place] Chloride [Moles/Vol] 101 mmol/L Normal 98-107 [facility] Comment on above: Order Comment: Speci men Type: BLOOD SPECIMEN Ordering Facility: [facility] Address: [address] [place] [address] Performed By: #### C OPPER #### [facility] CLIA [id number] [address] [place] [address] [place] CO2 [Moles/Vol] 21 mmol/L Low 22-30 [facility] Comment on above: Order Comment: Speci men Type: BLOOD SPECIMEN Ordering Facility: [facility] Address: [address] [place] [address] Performed By: #### C OPPER #### [facility] CLIA [id number] [address] [place] [address] [place] Creatinine [Mass/Vol] 0.67 mg/dL Low 0.73-1.22 [facility] Comment on above: Order Comment: Speci men Type: BLOOD SPECIMEN Ordering Facility: [facility] Address: [address] [place] [address] Performed By: #### C OPPER #### [facility] CLIA [id number] [address] [place] [address] [place] Creatinine and Glomerular filtration rate.predicted panel (S/P/Bld) 99 mL/min/1.73m??? Normal >=60 [facility] Comment on above: Order Comment: Speci men Type: BLOOD SPECIMEN Ordering Facility: [facility] Address: [address] [place] [address] Result Comment: Micaela mated Glomerular Filtration Rate [...] GFR. Performed By: #### C OPPER #### [facility] CLIA [id number] [address] [place] [address] [place] Glucose [Mass/Vol] 101 mg/dL High 74-99 [facility] Comment on above: Order Comment: Speci men Type: BLOOD SPECIMEN Ordering Facility: [facility] Address: [address] [place] [address] Result Comment: The [place] Diabetes Association (ADA) provides guidance for cutoff [...] Standards of Medical Care in Diabetes 2016, [place] Diabetes Association. Diabetes Care. 2016.39(Suppl 1). Performed By: #### C OPPER #### [facility] CLIA [id number] [address] [place] [address] [place] Potassium [Moles/Vol] 4.7 mmol/L Normal 3.7-5.1 [facility] Comment on above: Order Comment: Speci men Type: BLOOD SPECIMEN Ordering Facility: [facility] Address: [address] [place] [address] Performed By: #### C OPPER #### [facility] CLIA [id number] [address] [place] [address] [place] Protein [Mass/Vol] 8.2 g/dL High 6.3-8.0 [facility] Comment on above: Order Comment: Speci men Type: BLOOD SPECIMEN Ordering Facility: [facility] Address: [address] [place] [address] Performed By: #### C OPPER #### [facility] CLIA [id number] [address] [place] [address] [place] Sodium [Moles/Vol] 135 mmol/L Low 136-144 [facility] Comment on above: Order Comment: Speci men Type: BLOOD SPECIMEN Ordering Facility: [facility] Address: [address] [place] [address] Performed By: #### C OPPER #### [facility] CLIA [id number] [address] [place] [address] [place] Urea nitrogen [Mass/Vol] 14 mg/dL Normal 9-24 [facility] Comment on above: Order Comment: Speci men Type: BLOOD SPECIMEN Ordering Facility: [facility] Address: [address] [place] [address] Performed By: #### C OPPER #### [facility] CLIA [id number] [address] [place] [address] [place] Folate SerPl-mCncon 09-26-19 25 Folate [Mass/Vol] 13.3 ng/mL Normal >4.7 [facility] Comment on above: Order Comment: Speci men Type: BLOOD SPECIMEN Ordering Facility: [facility] Address: [address] [place] [address] Performed By: #### 2 284-8, 2885-2, 2132-9 #### [facility] CLIA [id number] [facility] IMMUNOFIXATION SCREEN, SERUM on 09-25-2024 INTERPRETATION (MPA) Atypical restricted bands are present in the IgG and kappa regions. Consistent with IgG kappa monoclonal gammopathy. Normal [facility] Comment on above: Order Comment: Speci men Type: BLOOD SPECIMEN Ordering Facility: [facility] Address: [address] [place] [address] Performed By: #### C OPPER #### [facility] CLIA [id number] [address] [place] [address] [place] MPA RESULT M protein is present. Abnormal No M p rotein is identified. [facility] Comment on above: Order Comment: Speci men Type: BLOOD SPECIMEN Ordering Facility: [facility] Address: [address] [place] [address] Performed By: #### C OPPER #### [facility] CLIA [id number] [address] [place] [address] [place] STAFF REVIEW (MPA) Reviewed by Derrick Rawls MD, Ph.D ([id number]) Normal [facility] Comment on above: Order Comment: Speci men Type: BLOOD SPECIMEN Ordering Facility: [facility] Address: [address] [place] [address] Performed By: #### C OPPER #### [facility] CLIA [id number] [address] [place] [address] [place] IMMUNOGLOBULINS,IGG,IGA,IGMo n 09-25-2024 IgA [Mass/Vol] 361 mg/dL Normal 70-400 [facility] Comment on above: Order Comment: Speci men Type: BLOOD SPECIMEN Ordering Facility: [facility] Address: [address] [place] [address] Performed By: #### 2 2314-9, 5195-3, 83806-9 #### [facility] CLIA [id number] [address] [place] [address] [place] IgG [Mass/Vol] 1487 mg/dL Normal 700-1600 [facility] Comment on above: Order Comment: Speci men Type: BLOOD SPECIMEN Ordering Facility: [facility] Address: [address] [place] [address] Performed By: #### 2 2314-9, 5195-3, 74312-9 #### [facility] CLIA [id number] [address] [place] [address] [place] IgM [Mass/Vol] 46 mg/dL Normal 40-230 [facility] Comment on above: Order Comment: Speci men Type: BLOOD SPECIMEN Ordering Facility: [facility] Address: [address] [place] [address] Performed By: #### 2 2314-9, 5195-3, 15121-2 #### [facility] CLIA [id number] [address] [place] [address] [place] KAPPA/NEUMANN,FREE,SERon 2024 Immunoglobulin light chains.kappa.free (S) [Mass/Vol] 35.1 mg/L High 3.3-19.4 [facility] Comment on above: Order Comment: Speci men Type: BLOOD SPECIMEN Ordering Facility: [facility] Address: [address] [place] [address] Result Comment: Rare ly, increased serum free light chains levels may not be detected or accurately quantified due to prozone phenomenon or in high viscosity samples using this immunoturbidimetric assay. Correlation with other laboratory results and clinical findings is recommended. The [place] Free Light Chain was performed using the Binding Site Optilite immunoturbidimetric method. Result obtained with different assay methods or kits cannot be used interchangeably. Performed By: #### 1 989-3 #### [facility] CLIA [id number] [address] [place] [address] [place] Immunoglobulin light chains.kappa/Immunogl obulin light chains.lambda (S) [Mass ratio] 1.02 Normal 0.26-1.65 [facility] Comment on above: Order Comment: Speci men Type: BLOOD SPECIMEN Ordering Facility: [facility] Address: [address] [place] [address] Performed By: #### 1 989-3 #### [facility] CLIA [id number] [address] [place] [address] [place] Immunoglobulin light chains.lambda.free [Mass/Vol] 34.4 mg/L High 5.7-26.3 [facility] Comment on above: Order Comment: Speci men Type: BLOOD SPECIMEN Ordering Facility: [facility] Address: [address] [place] [address] Result Comment: Rare ly, increased serum free [...] interchangeably. Performed By: #### 1 989-3 #### [facility] CLIA [id number] [address] [place] [address] [place] MONOCLONAL PROT UR W/INTERPo n 09-25-2024 STAFF REVIEW ([facility]) Reviewed by Derrick Rawls MD, Ph.D ([id number]) Normal [facility] Comment on above: Order Comment: Speci men Type: BLOOD SPECIMEN Ordering Facility: [facility] Address: [address] [place] [address] Performed By: #### C OPPER #### [facility] CLIA [id number] [address] [place] [address] [place] UMPA RESULT No M protein is identified. Normal No M protein is identified. [facility] Comment on above: Order Comment: Speci men Type: BLOOD SPECIMEN Ordering Facility: [facility] Address: [address] [place] [address] Performed By: #### C OPPER #### [facility] CLIA [id number] [address] [place] [address] [place] Methylmalonate SerPl-sCncon 09-25-2024 Methylmalonate [Moles/Vol] 0.12 umol/L Normal <=0.40 [facility] Comment on above: Order Comment: Speci men Type: BLOOD SPECIMEN Ordering Facility: [facility] Address: [address] [place] [address] Result Comment: This test was developed, and its performance characteristics determined by the [facility] Department of Pathology and Laboratory Medicine. It has not been cleared or approved by the FDA. The [facility] Department of Pathology and Laboratory Medicine is regulated under CLIA as qualified to perform high-complexity testing. This test is used for clinical purposes. It should not be regarded as investigational or for research. Performed By: #### C OPPER #### [facility] CLIA [id number] [address] [place] [address] [place] PROTEIN ELECTROPHORESIS SERU M (P)on 09-25-2024 Albumin [Mass/Vol] 4.60 g/dL Normal 3.43-5.41 [facility] Comment on above: Order Comment: Speci men Type: BLOOD SPECIMEN Ordering Facility: [facility] Address: [address] [place], [place] [address] Performed By: #### 2 284-8, 2885-2, 2132-03 #### [facility] CLIA [id number] [address] [place] [address] [place] Alpha 1 globulin Elph [Mass/Vol] 0.33 g/dL Normal 0.18-0.43 [facility] Comment on above: Order Comment: Speci men Type: BLOOD SPECIMEN Ordering Facility: [facility] Address: [address] [place] [address] Performed By: #### 2 284-8, 288-2, 2132-03 #### [facility] CLIA [id number] 1 [place] [address] [place] Alpha 2 globulin Elph [Mass/Vol] 0.76 g/dL Normal 0.42-0.98 [facility] Comment on above: Order Comment: Speci men Type: BLOOD SPECIMEN Ordering Facility: [facility] Address: [address] [place] [address] Performed By: #### 2 284-8, 288-2, 2132-03 #### [facility] CLIA [id number] 1 [place] [address] [place] Beta globulin Elph [Mass/Vol] 1.12 g/dL Normal 0.61-1.17 [facility] Comment on above: Order Comment: Speci men Type: BLOOD SPECIMEN Ordering Facility: [facility] Address: [address] [place] [address] Performed By: #### 2 284-8, 2885-2, 2132-03 #### [facility] CLIA [id number] 1 [place] [address] [place] Gamma globulin Elph [Mass/Vol] 1.28 g/dL Normal 0.53-1.51 [facility] Comment on above: Order Comment: Speci men Type: BLOOD SPECIMEN Ordering Facility: [facility] Address: [address] [place] [address] Performed By: #### 2 284-8, 2885-2, 2132-03 #### [facility] CLIA [id number] [address] INTERPRETATION COMMENT FOR PROTEIN ELECTROPHORESIS The atypical region is relatively poorly defined and may represent an unusual presentation of polyclonal immunoglobulins, but cannot rule out the presence of a low level M protein. If clinically indicated, monoclonal protein analysis and serum free light chain analysis are suggested to evaluate further for monoclonal gammopathy. Normal [facility] Comment on above: Order Comment: Medina peck Type: BLOOD SPECIMEN Ordering Facility: [facility] Address: [address] [place] [address] Performed By: #### 2 284-8, 2885-2, 2132-03 #### [facility] CLIA [id number] [address] M-PROTEIN LOCATION Normal [facility] Comment on above: Order Comment: [facility] Type: BLOOD SPECIMEN Ordering Facility: [facility] Address: [address] [place] [address] Result Comment: Not Applicable. Performed By: #### 2 284-8, 2885-2, 2132-03 #### [facility] CLIA [id number] [address] Protein Fractions [Interp] An atypical region of restricted mobility is identified on protein electrophoresis. Abnormal No definitive M protein is identified on protein electrophore sis. [facility] Comment on above: Order Comment: [facility] Type: BLOOD SPECIMEN Ordering Facility: [facility] Address: [address] [place] [address] Performed By: #### 2 284-8, 2885-2, 2132-03 #### [facility] CLIA [id number] [address] Protein.monoclonal Elph [Mass/Vol] 0.00 g/dL Normal <=0.00 [facility] Comment on above: Order Comment: [facility] Type: BLOOD SPECIMEN Ordering Facility: [facility] Address: [address] [place] [address] Performed By: #### 2 284-8, 2885-2, 2132-03 #### [facility] CLIA [id number] [address] [place] SPE STAFF REVIEW Reviewed by Derrick Rawls MD, Ph.D ([id number]) Normal [facility] Comment on above: Order Comment: Speci men Type: BLOOD SPECIMEN Ordering Facility: [facility] Address: [address] [place] [address] Performed By: #### 2 284-8, 2885-2, 9 #### [facility] CLIA [id number] 1 [place] [address] [place] Prot SerPl-mCncon 09-25-2024 Protein [Mass/Vol] 8.1 g/dL High 6.3-8.0 [facility] Comment on above: Order Comment: Speci men Type: BLOOD SPECIMEN Ordering Facility: [facility] Address: [address] [place] [address] Performed By: #### 2 284-8, 288-2, 9 #### [facility] CLIA [id number] [address] [place] Prot Ur-mCncon 09-25-2024 Protein (U) [Mass/Vol] 6 mg/dL Normal 0-20 [facility] Comment on above: Order Comment: Speci men Type: BLOOD SPECIMEN Ordering Facility: [facility] Address: [address] [place] [address] Performed By: #### 2 284-8, 2885-2, 9 #### [facility] CLIA [id number] [address] [place] URINE PROTEIN ELECTROPHORESI S RANDOM (P)on 09-25-2024 Albumin Elph (U) [Mass fraction] 39.64 % Normal [facility] Comment on above: Order Comment: Speci men Type: BLOOD SPECIMEN Ordering Facility: [facility] Address: [address] [place] [address] Performed By: #### C OPPER #### [facility] CLIA [id number] [address] [place], [place] [address] [place] Alpha 1 globulin Elph (U) [Mass fraction] 3.33 % Normal [facility] Comment on above: Order Comment: Speci men Type: BLOOD SPECIMEN Ordering Facility: [facility] Address: [address] [place] [address] Performed By: #### C OPPER #### [facility] CLIA [id number] [address] [place] [address] [place] Alpha 2 globulin Elph (U) [Mass fraction] 15.07 % Normal [facility] Comment on above: Order Comment: Speci men Type: BLOOD SPECIMEN Ordering Facility: [facility] Address: [address] [place] [address] Performed By: #### C OPPER #### [facility] CLIA [id number] [address] [place] [address] [place] Beta globulin Elph (U) [Mass fraction] 22.71 % Normal [facility] Comment on above: Order Comment: Speci men Type: BLOOD SPECIMEN Ordering Facility: [facility] Address: [address] [place], [place] [address] Performed By: #### C OPPER #### [facility] CLIA [id number] [address] [place] [address] [place] Gamma globulin Elph (U) [Mass fraction] 19.25 % Normal [facility] Comment on above: Order Comment: Speci men Type: BLOOD SPECIMEN Ordering Facility: [facility] Address: [address] [place], [place] [address] Performed By: #### C OPPER #### [facility] CLIA [id number] [address] [place], [place] [address] [place] Protein Fractions Elph Kamaljit (U) [Interp] No definitive M protein is identified on protein electrophoresis. Normal No definitive M protein is identified on protein electrophore sis. [facility] Comment on above: Order Comment: Speci men Type: BLOOD SPECIMEN Ordering Facility: [facility] Address: [address] [place] [address] Performed By: #### C OPPER #### [facility] CLIA [id number] [address] [place], [place] [address] [facility] [place] STAFF REVIEW (URINE ELECTRO) Reviewed by Derrick Rawls MD, Ph.D ([id number]) Normal [facility] Comment on above: Order Comment: Speci men Type: BLOOD SPECIMEN Ordering Facility: [facility] Address: [address] [place] [address] Performed By: #### C OPPER #### [facility] CLIA [id number] [address] [place], [place] [address] [place] Vit B12 SerPl-ncon 05- 025 Cobalamin (Vitamin B12) [Mass/Vol] 1008 pg/mL Normal 232-1245 [facility] Comment on above: Order Comment: Speci men Type: BLOOD SPECIMEN Ordering Facility: [facility] Address: [address] [place] [address] Performed By: #### 2 284-8, 2885-2, 2132-9 #### [facility] CLIA [id number] [address] [place] Abdomen Single Viewon 2024 Abdomen Single View [facility] Imaging Services [address] [place] [address] [id number] Abdomen Single View MR#: [id number] Acct: [id number] Name: NAZARIO HUTTON Rep #: [id number] : 1950 M 73 From: Melba Garcia DO PCP: Dr. Valeriano Beasley MD Status: [facility] CLI Study: Abdomen Single View Date of Exam: 09/23/24 Exam# [id number] Ordering Dr: Geovani Barron MD PROCEDURE: ABDOMEN [...] View IMPRESSION: Right renal stones. Reading Location: [facility] CC: Dr. Valeriano Beasley MD; Dr. Geovani Barron MD Developer Evangelist: Signed Normal [facility] Gastroenterology Visit Repor ton 09-19-2024 Gastroenterology Visit Report [facility] [address] [place] [address] OFFICE VISIT Date of Service: 09/19/24 MR#: [id number] Acct: [id number] Name: NAZARIO HUTTON Rep #: [id number] : 1950 Provider: Dr. Shubham granados MD Age/Sex: 73/M [place] [facility] [place] Status: Signed Intake Vital Signs 06/04/24 13:31 [...] Coronary artery disease Atherosclerotic heart disease of saxman coronary artery without angina pectoris ST elevation [place] (STEMI) ( 11/29/21) Hyperlipidemia Hypertension Surgical History H/O colonoscopy S/P cataract extraction Presence of coronary angioplasty implant and graft ( 11/29/21) Family History Mother COPD (chronic obstructive pulmonary disease) Lung cancer Father Heart disease Hypertension Myocardial infarction age 53 following FL. Social History household members: none Smoking Status: [...] wheezing Cardio (more content not included)... Normal [facility] AFP, Tumor Markeron 09-17-19 25 AFP TUMOR VASILE 2.8 ng/mL Normal 0.0-8.4 [facility] Comment on above: Order Comment: Test( s) 455516-Xulwmp, Serum or Plasmawas developed and its performance characteristicsdetermined by [employer]. It has not been cleared or approvedby the Food and Drug Administration.N Result Comment: [employer] Electrochemiluminescence Immunoassay (ECLIA) Values obtained with different assay methods or kits cannot be used interchangeably. Results cannot be interpreted as absolute evidence of the presence or absence of malignant disease. This test is not interpretable in females. Performed By: #### L 500.2500, L100.0100 #### [facility] [address] [place], [address] GALLO w/ Reflex Mult Confirmon 09-17-2024 ANTI-DNA (DS)AB TNP Normal [facility] Comment on above: Performed By: #### L 3400.5105, L3200.1600, L503.7505, L509.7001 #### [facility] [address] [place], [address] ANTISCLERODERM TNP Normal [facility] Comment on above: Performed By: #### L 3400.5105, L3200.1600, L503.7505, L509.7001 #### [facility] [address] [place], [address] Anti-Smooth Muscle ABSon ANTISMOOTH MUSC 10 Units Normal 0-19 [facility] Comment on above: Order Comment: Test( s) 579301-Zzbpue, Serum or Plasmawas developed and its performance characteristicsdetermined by [employer]. It has not been cleared or approvedby the Food and Drug Administration. Result Comment: Nega tive 0 - 19 Weak positive 20 - 30 Moderate to strong positive >30 Actin Antibodies are found in 52-85% of patients with autoimmune hepatitis or chronic active hepatitis and in 22% of patients with primary biliary cirrhosis. Performed By: #### L 3400.5105, L3200.1600, L503.7505, L509.7001 #### [facility] [address] [place], [address] Ceruloplasminon 09-17-2024 CERULOPLASMIN 25.6 mg/dL Normal 16.0-31.0 [facility] Comment on above: Order Comment: Test( s) 136618-Rhgpcp, Serum or Plasmawas developed and its performance characteristicsdetermined by [employer]. It has not been cleared or approvedby the Food and Drug Administration. Performed By: #### L 500.2500, L100.0100 #### [facility] [address] [place], [address] Copper, Serum or Plasmaon COPPER, SERUM 119 ug/dL Normal 69-132 [facility] Comment on above: Order Comment: Test( s) 036035-Fqxqxv, Serum or Plasmawas developed and its performance characteristicsdetermined by [employer]. It has not been cleared or approvedby the Food and Drug Administration. Result Comment: Dete ction Limit = 5 Performed By: #### L 500.2500, L100.0100 #### [facility] [address] [place], [place], [address] Haptoglobinon 09-17-2024 HAPTOGLOBIN 286 mg/dL Normal 34-355 [facility] Comment on above: Order Comment: Test( s) 244454-Xltnvj, Serum or Plasmawas developed and its performance characteristicsdetermined by [employer]. It has not been cleared or approvedby the Food and Drug Administration. Result Comment: Perf ormed at: [address] [id number] Cable Splicer Helper: José Miguel Alba PhD, Phone: [phone] Performed at: [facility] [id number] Cable Splicer Helper: Zafar Browne MD, Phone: [phone] Performed By: #### L 3400.5105, L3200.1600, L503.7505, L509.7001 #### [facility] [address] [place], [address] L501.5101on 09-17-2024 GGTP 150 IU/L Abnormal 0-65 [facility] Comment on above: Order Comment: Test( s) 735327-Zqmhef, Serum or Plasmawas developed and its performance characteristicsdetermined by [employer]. It has not been cleared or approvedby the Food and Drug Administration. Performed By: #### L 3400.5105, L3200.1600, L503.7505, L509.7002 #### [facility] [address] [place], [address] Anti-Mitochondrial ABon 08-25 ANTIMITOCHON AB <20.0 Normal 0.0-20.0 [facility] Comment on above: Result Comment: Nega tive 0.0 - 20.0 Equivocal 20.1 - 24.9 Positive >24.9 Mitochondrial (M2) Antibodies are found in 90-96% of patients with primary biliary cirrhosis. Performed By: #### L 3400.5105, L3200.1600, L503.1185, L509.8442 #### [facility] [address] [place], [address] GALLO serumOrdered By: Shubham Blanco on 09-12-2024 Anti-Nuclear Antibody Screen Negative Negative [facility] Comment on above: Performed at: [place] [id number] Director: José Miguel Alba PhD, Phone: [phone] Absolute lymphocyte countOrd ered By: Shubham Blanco on 09-12-2024 Lymphocytes Auto (Unsp spec) [#/Vol] 0.77 10*3/uL Low 0.83-4.51 [facility] Absolute neutrophil countOrd ered By: Shubham Blanco on 09-12-2024 Neutrophils (Bld) [#/Vol] 5.1 10*3/uL 2.0-7.7 [facility] Actin IgG QnOrdered By: Nilda Blanco on 09-12-2024 Anti-Smooth Muscle Antibody 10 Units 0-19 [facility] Comment on above: Negative 0 - 19 Weak positive 20 - 30 Moderate to strong positive >30 Actin Antibodies are found in 52-85% of patients with autoimmune hepatitis or chronic active hepatitis and in 22% of patients with primary biliary cirrhosis. Albumin to globulin ratioOrd ered By: Shubham Blanco on 09-12-2024 Albumin/Globulin [Mass ratio] 0.8 {ratio} Low 0.9-2.4 [facility] Alpha fetoprotein measuremen t as tumor markerOrdered By: Shubham Blanco on 09-12-2024 Tumor Marker Alpha Fetoprotein 2.8 ng/mL 0.0-8.4 [facility] Comment on above: [employer] El ectrochemiluminescence Immunoassay(ECLIA)Values obtained with different assay methods or kits cannotbe used interchangeably. Results cannot be interpreted asabsolute evidence of the presence or absence of malignantdisease.This test is not interpretable in females. Ammoniaon 09-12-2024 Ammonia (P) [Moles/Vol] 30.0 umol/L Normal 11-32 [facility] Comment on above: Performed By: #### L 3400.5105, L3200.1600, L503.7505, L509.7001 #### [facility] [address] [place], [place], [address] Automated lymphocyte count a s percentage of total leukocytesOrdered By: Shubham Blanco on 09-12-2024 Lymphocytes/100 WBC Auto (Unsp spec) 9.8 % Low 19-41 [facility] Basophil percentageOrdered B y: Shubham Blanco on 09-12-2024 Basophils/100 WBC (Bld) 0.6 % 0-1 [facility] Bilirubin directOrdered By: Shubham Blanco on 09-12-2024 Bilirubin.direct [Mass/Vol] 0.18 mg/dL 0.00-0.30 [facility] Bilirubin, Directon 09-12-19 25 Bilirubin.direct [Mass/Vol] 0.18 mg/dL Normal 0.00-0.30 [facility] Comment on above: Performed By: #### L 3400.5105, L3200.1600, L503.7505, L509.7001 #### [facility] [address] [place], [address] Bilirubin, totalOrdered By: Shubham Blanco on 09-12-2024 Bilirubin [Mass/Vol] 0.70 mg/dL 0.20-1.00 [facility] Comment on above: For patients on eltr ombopag therapy, use of Dimension Roca TBIL is not recommended. Blood urea nitrogen (BUN)/cr eatinine ratioOrdered By: Shubham Blanco on 09-12-2024 Urea nitrogen/Creatinine [Mass ratio] 15.3 mg/mg 05-12 [facility] C-reactive protein measureme nt by high sensitivity methodOrdered By: Shubham Blanco on 09-12-2024 C-Reactive Protein Extended Range 10.80 mg/L High 0.0-3.0 [facility] Comment on above: C-Reactive Protein ( CRP) provides useful information for thediagnosis, therapy and monitoring of inflammatory processesand associated diseases. For the evaluation of Relative Riskfor Cardiovascular Disease, a High Sensitivity CRP (HSCRP)should be ordered. C-reactive protein measurement by high sensitivity method 10.80 mg/L High 0.0-3.0 [facility] Comment on above: C-Reactive Protein ( CRP) provides useful information for thediagnosis, therapy and monitoring of inflammatory processesand associated diseases. For the evaluation of Relative Riskfor Cardiovascular Disease, a High Sensitivity CRP (HSCRP)should be ordered. CBC W/Diff, Automatedon 08-25 Absolute Lymph 0.77 X10 3/uL Low 0.83-4.51 [facility] Comment on above: Performed By: #### L 3400.5105, L3200.1600, L503.7505, L509.7001 #### [facility] [address] [place], [address] Absolute Neut 5.1 X10 3/uL Normal 2.0-7.7 [facility] Comment on above: Performed By: #### L 3400.5105, L3200.1600, L503.7505, L509.7001 #### [facility] [address] [place], [address] Basophils/100 WBC (Bld) 0.6 % Normal 0-1 [facility] Comment on above: Performed By: #### L 3400.5105, L3200.1600, L503.7505, L509.7001 #### [facility] [address] [place], [address] Eosinophils/100 WBC (Bld) 10.9 % High 0-5 [facility] Comment on above: Performed By: #### L 3400.5105, L3200.1600, L503.7505, L509.7001 #### [facility] [address] [place], [address] Erythrocyte distribution width (RBC) [Ratio] 13.2 % Normal 11.6-14.6 [facility] Comment on above: Performed By: #### L 3400.5105, L3200.1600, L503.7505, L509.7001 #### [facility] [address] [place], [address] Hematocrit (Bld) [Volume fraction] 41.0 % Normal 40-54 [facility] Comment on above: Performed By: #### L 3400.5105, L3200.1600, L503.7505, L509.7001 #### [facility] [address] [place], [address] Hemoglobin (Bld) [Mass/Vol] 13.9 g/dL Normal 13.0-16.5 [facility] Comment on above: Performed By: #### L 3400.5105, L3200.1600, L503.7505, L509.7001 #### [facility] [address] [place], [address] IG% 0.300 Normal 0.0-0.9 [facility] Comment on above: Result Comment: IG% - Immature Granulocytes (promyelocytes, myelocytes and metamyelocytes) > 1% indicates that a LEFT SHIFT is Present. Performed By: #### L 3400.5105, L3200.1600, L503.7505, L509.7001 #### [facility] [address] [place], [address] Lymphocytes/100 WBC (Bld) 9.8 % Low 19-41 [facility] Comment on above: Performed By: #### L 3400.5105, L3200.1600, L503.7505, L509.7001 #### [facility] [address] [place], [address] MCH (RBC) [Entitic mass] 34.0 pg High 27.0-32.0 [facility] Comment on above: Performed By: #### L 3400.5105, L3200.1600, L503.7505, L509.7001 #### [facility] [address] [place], [address] MCHC (RBC) [Mass/Vol] 33.9 g/dL Normal 32-36 [facility] Comment on above: Performed By: #### L 3400.5105, L3200.1600, L503.7505, L509.7001 #### [facility] [address] [place], [address] MCV (RBC) [Entitic vol] 100.2 fL High 80-94 [facility] Comment on above: Performed By: #### L 3400.5105, L3200.1600, L503.7505, L509.7001 #### [facility] [address] [place], [address] Monocytes/100 WBC (Bld) 13.9 % High 0-10 [facility] Comment on above: Performed By: #### L 3400.5105, L3200.1600, L503.7505, L509.7001 #### [facility] [address] [place], [address] Neutrophils/100 WBC (Bld) 64.5 % Normal 47-70 [facility] Comment on above: Performed By: #### L 3400.5105, L3200.1600, L503.7505, L509.7001 #### [facility] [address] [place], [address] Nucleated RBC (Bld) [#/Vol] 0 10*3/uL Normal 0-5 [facility] Comment on above: Performed By: #### L 3400.5105, L3200.1600, L503.7505, L509.7001 #### [facility] [address] [place], [address] Platelet mean volume (Bld) [Entitic vol] 10.1 fL Normal 6.2-12.0 [facility] Comment on above: Performed By: #### L 3400.5105, L3200.1600, L503.7505, L509.7001 #### [facility] [address] [place], [address] Platelets (Bld) [#/Vol] 220 10*3/uL Normal 150-450 [facility] Comment on above: Performed By: #### L 3400.5105, L3200.1600, L503.7505, L509.7001 #### [facility] [address] [place], [address] RBC (Bld) [#/Vol] 4.09 10*6/uL Low 4.6-6.2 [facility] Comment on above: Performed By: #### L 3400.5105, L3200.1600, L503.7505, L509.7001 #### [facility] [address] [place], [address] RDW SD 48.1 fl High 35.1-43.9 [facility] Comment on above: Performed By: #### L 3400.5105, L3200.1600, L503.7505, L509.7001 #### [facility] [address] [place], [address] WBC (Bld) [#/Vol] 7.9 10*3/uL Normal 4.4-11.0 [facility] Comment on above: Performed By: #### L 3400.5105, L3200.1600, L503.7505, L509.7001 #### [facility] [address] [place], [place], [id number] CRPon 09-12-2024 C-REACTIVE PROT 10.80 mg/L High 0.0-3.0 [facility] Comment on above: Result Comment: C-Re active Protein (CRP) provides useful information for the diagnosis, therapy and monitoring of inflammatory processes and associated diseases. For the evaluation of Relative Risk for Cardiovascular Disease, a High Sensitivity CRP (HSCRP) should be ordered. Performed By: #### L 3400.5105, L3200.1600, L503.7505, L509.7001 #### [facility] [address] [place], [address] Carbon dioxide measurementOr dered By: Shubham Blanco on 09-12-2024 CO2 [Moles/Vol] 24.0 mmol/L 21.0-32.0 [facility] [employer] B antibody assayO rdered By: Shubham Blanco on 09-12-2024 Cent[employer] B Antibody TNP [facility] Comment on above: Test not performed CeruloplasminOrdered By: Gennaro Blanco on 09-12-2024 Ceruloplasmin 25.6 mg/dL 16.0-31.0 [facility] Chloride measurementOrdered By: Shubham Blanco on 09-12-2024 Chloride [Moles/Vol] 107 mmol/L 98-107 [facility] Chromatin antibody assayOrde red By: Shubham Blanco on 09-12-2024 [facility] Comment on above: Test not performed Comprehensive Metabolic Prof ilon 09-12-2024 Albumin [Mass/Vol] 3.3 g/dL Normal 3.2-5.0 [facility] Comment on above: Performed By: #### L 3400.5105, L3200.1600, L503.7505, L509.7001 #### [facility] [address] [place], [place], [address] Albumin/Globulin [Mass ratio] 0.8 {ratio} Low 0.9-2.4 [facility] Comment on above: Performed By: #### L 3400.5105, L3200.1600, L503.7505, L509.7001 #### [facility] [address] [place], [address] ALK P 134 U/L High 45-117 [facility] Comment on above: Performed By: #### L 3400.5105, L3200.1600, L503.7505, L509.7001 #### [facility] [address] [place], [address] ALT [Catalytic activity/Vol] 36 U/L Normal 16-61 [facility] Comment on above: Performed By: #### L 3400.5105, L3200.1600, L503.7505, L509.7001 #### [facility] [address] [place], [address] AST [Catalytic activity/Vol] 38 U/L High 15-37 [facility] Comment on above: Performed By: #### L 3400.5105, L3200.1600, L503.7505, L509.7001 #### [facility] [address] [place], [address] Bilirubin [Mass/Vol] 0.70 mg/dL Normal 0.20-1.00 [facility] Comment on above: Result Comment: For patients on eltrombopag therapy, use of Dimension Roca TBIL is not recommended. Performed By: #### L 3400.5105, L3200.1600, L503.7505, L509.7001 #### [facility] [address] [place], [address] BUN/CRE 15.3 RATIO Normal 10-20 [facility] Comment on above: Performed By: #### L 3400.5105, L3200.1600, L503.7505, L509.7001 #### [facility] [address] [place], [address] CA,Total 9.6 mg/dL Normal 8.5-10.1 [facility] Comment on above: Performed By: #### L 3400.5105, L3200.1600, L503.7505, L509.7001 #### [facility] [address] [place], [address] Chloride [Moles/Vol] 107 mmol/L Normal 98-107 [facility] Comment on above: Performed By: #### L 3400.5105, L3200.1600, L503.7505, L509.7001 #### [facility] [address] [place], [address] CO2 [Moles/Vol] 24.0 mmol/L Normal 21.0-32.0 [facility] Comment on above: Performed By: #### L 3400.5105, L3200.1600, L503.7505, L509.7001 #### [facility] [address] [place], [address] Creatinine [Mass/Vol] 0.72 mg/dL Normal 0.70-1.30 [facility] Comment on above: Result Comment: The validity of the calculated GFR GFRAA in patients over 70 years has not been determined. Clinical correlation is essential. Performed By: #### L 3400.5105, L3200.1600, L503.7505, L509.7001 #### [facility] [address] [place], [address] EST GFR - AA 137 mL/min Normal >60 [facility] Comment on above: Result Comment: Afri can Israeli GFR Calc Performed By: #### L 3400.5105, L3200.1600, L503.7505, L509.7001 #### [facility] [address] [place], [address] GAP 6 Normal 5-15 [facility] Comment on above: Performed By: #### L 3400.5105, L3200.1600, L503.7505, L509.7001 #### [facility] [address] [place], [address] GFR/1.73 sq M.predicted among non-blacks MDRD (S/P/Bld) [Vol rate/Area] 113 mL/min/{1.73_m2} Normal >60 [facility] Comment on above: Result Comment: Non- GFR Calc Performed By: #### L 3400.5105, L3200.1600, L503.7505, L509.7001 #### [facility] [address] [place], [address] Globulin (S) [Mass/Vol] 4.2 g/dL Normal 2.2-4.2 [facility] Comment on above: Performed By: #### L 3400.5105, L3200.1600, L503.7505, L509.7001 #### [facility] [address] [place], [address] Glucose [Mass/Vol] 91 mg/dL Normal 74-106 [facility] Comment on above: Performed By: #### L 3400.5105, L3200.1600, L503.7505, L509.7001 #### [facility] [address] [place], [address] Potassium [Moles/Vol] 4.4 mmol/L Normal 3.5-5.1 [facility] Comment on above: Performed By: #### L 3400.5105, L3200.1600, L503.7505, L509.7001 #### [facility] [address] [place], [address] Sodium [Moles/Vol] 137 mmol/L Normal 136-145 [facility] Comment on above: Performed By: #### L 3400.5105, L3200.1600, L503.7505, L509.7001 #### [facility] [address] [place], [address] T PROT 7.5 g/dL Normal 6.4-8.2 [facility] Comment on above: Performed By: #### L 3400.5105, L3200.1600, L503.7505, L509.7001 #### [facility] [address] [place], [address] Urea nitrogen [Mass/Vol] 11 mg/dL Normal 7-18 [facility] Comment on above: Performed By: #### L 3400.5105, L3200.1600, L503.7505, L509.7001 #### [facility] [address] [place], [address] Copper, serumOrdered By: Gennaro Blanco on 09-12-2024 Serum Copper 119 ug/dL 69-132 [facility] Comment on above: Detection Limit = 5 DNA double strand Ab Qn (S)O rdered By: Shubham Blanco on 09-12-2024 Anti-Double Strand DNA Antibody TNP [facility] Comment on above: Test not performed Eosinophil percentageOrdered By: Shubham Blanco on 09-12-2024 Eosinophils/100 WBC (Bld) 10.9 % High 0-5 [facility] Erythrocyte distribution wid th ratioOrdered By: Shubham Blanco on 09-12-2024 Erythrocyte distribution width (RBC) [Ratio] 13.2 % 11.6-14.6 [facility] Erythrocyte distribution wid th standard deviationOrdered By: Shubham Blanco on 09-12-2024 Erythrocyte distribution width (RBC) [Entitic vol] 48.1 fL High 35.1-43.9 [facility] Erythrocyte distribution width (RBC) [Ratio] 48.1 fl High 35.1-43.9 [facility] Estimated glomerular filtrat ion rate (GFR) AmericanOrdered By: Shubham Blanco on 09-12-2024 Estimated GFR (MDRD) Amer 137 mL/min >60 [facility] Comment on above: GFR Calc Ferritinon 09-12-2024 Ferritin [Mass/Vol] 106 ng/mL Normal 26-388 [facility] Comment on above: Performed By: #### L 3400.5105, L3200.1600, L503.7505, L509.7001 #### [facility] [address] [place], [place], [address] Ferritin measurementOrdered By: Shubham Blanco on 09-12-2024 Ferritin [Mass/Vol] 106 ng/mL 26-388 [facility] Gamma glutamyl transferase ( GGT) measurementOrdered By: Shubham Blanco on 09-12-2024 Amylase [Catalytic activity/Vol] 150 U/L High 0-65 [facility] Glomerular filtration rate ( GFR) estimationOrdered By: Shubham Blanco on 09-12-2024 Estimated GFR (MDRD) Non-Af Amer 113 mL/min >60 [facility] Comment on above: Non- GFR Calc GFR/1.73 sq M.predicted among non-blacks MDRD (S/P/Bld) [Vol rate/Area] 113 mL/min/{1.73_m2} >60 [facility] Comment on above: Non- GFR Calc Glucose measurementOrdered B y: Shubham Blanco on 09-12-2024 Glucose [Mass/Vol] 91 mg/dL 74-106 [facility] HBV surface IgG Ql (S)Ordere d By: Shubham Blanco on 09-12-2024 Hepatitis B Surface Antibody Non-Reactive [facility] Comment on above: Non Reactive: Incons istent with immunity less than <10 mIU/mL Reactive: Consistent with immunity greater than or equal to 10 mIU/mL HaptoglobinOrdered By: Maritza Blanco on 09-12-2024 Haptoglobin 286 mg/dL 34-355 [facility] Comment on above: Performed at: - L [facility] [address] [id number] Director: José Miguel Alba PhD, Phone: [phone] at: [facility] [id number] Director: Zafar Browne MD, Phone: [phone] Hematocrit Auto (Bld) [Volum e fraction]Ordered By: Shubham Blanco on 09-12-2024 Hematocrit (Bld) [Volume fraction] 41.0 % 40-54 [facility] Hemoglobin A1con 09-12-2024 HbA1c (Bld) [Mass fraction] 5.6 % Normal 3.8-5.6 [facility] Comment on above: Result Comment: Norm al < 5.7 % Prediabetic 5.7 - 6.4 % Diabetic >or= 6.5 % Please note range changes. Performed By: #### L 3400.5105, L3200.1600, L503.7505, L509.7001 #### [facility] [address] [place], [place], [address] Hemoglobin A1c percentageOrd ered By: Shubham Blanco on 09-12-2024 HbA1c (Bld) [Mass fraction] 5.6 % 3.8-5.6 [facility] Comment on above: Normal < 5.7 % Predi abetic 5.7 - 6.4 % Diabetic >or= 6.5 % Please note range changes. Hemoglobin measurementOrdere d By: Shubham Blanco on 09-12-2024 Hemoglobin (Bld) [Mass/Vol] 13.9 g/dL 13.0-16.5 [facility] Hepatitis B Surface Antibody on 09-12-2024 HEP B Surf Ab Non-Reactive Normal [facility] Comment on above: Result Comment: Non Reactive: Inconsistent with immunity less than <10 mIU/mL Reactive: Consistent with immunity greater than or equal to 10 mIU/mL Performed By: #### L 3890.6200 #### [facility] [address] [place], [place], [address] Immature granulocytes/100 WB C Auto (Bld)Ordered By: Shubham Blanco on 09-12-2024 Immature granulocytes/100 WBC (Bld) 0.300 % 0.0-0.9 [facility] Comment on above: IG% - Immature Granu locytes (promyelocytes, myelocytes and metamyelocytes) > 1% indicates that a LEFT SHIFT is Present. International normalized rat io (INR) calculationOrdered By: Shubham Blanco on 09-12-2024 INR Coag (Bld) [Relative time] 1.0 {INR} [facility] Iron (Unsp spec) [Mass/Mass] Ordered By: Shubham Blanco on 09-12-2024 Iron [Mass/Vol] 77 ug/dL 65-175 [facility] Iron measurement (mass/mass) Ordered By: Shubham Blanco on 09-12-2024 Iron (Unsp spec) [Mass/Mass] 77 ug/dL 65-175 [facility] Iron saturation [Mass fracti on]Ordered By: Shubham Blanco on 09-12-2024 Iron Saturation 27.7 % 15.0-55.0 [facility] Iron+Iron Binding Capacityon 09-12-2024 Iron [Mass/Vol] 77 ug/dL Normal 65-175 [facility] Comment on above: Performed By: #### L 3400.5105, L3200.1600, L503.7505, L509.7001 #### [facility] [address] [place], [address] IRON SATURATION 27.7 Normal 15.0-55.0 [facility] Comment on above: Performed By: #### L 3400.5105, L3200.1600, L503.7505, L509.7001 #### [facility] [address] [place], [address] TIBC 278 ug/dL Normal 250-450 [facility] Comment on above: Performed By: #### L 3400.5105, L3200.1600, L503.7505, L509.7001 #### [facility] [address] [place], [address] Francia-1 antibody assayOrdered B y: Shubham Blanco on 09-12-2024 FRANCIA-1 Antibody TNP [facility] Comment on above: Test not performed Laboratory - Chemistry and C hemistry - challengeOrdered By: Shubham Blanco on 09-12-2024 AST [Catalytic activity/Vol] 38 U/L High 15-37 [facility] Lymphocytes Auto (Unsp spec) [#/Vol]Ordered By: Shubham Blanco on 09-12-2024 Lymphocytes (Bld) [#/Vol] 0.77 10*3/uL Low 0.83-4.51 [facility] Lymphocytes/100 WBC Auto (Un sp spec)Ordered By: Shubham Blanco on 09-12-2024 Lymphocytes/100 WBC (Bld) 9.8 % Low 19-41 [facility] MCV (mean corpuscular volume ) determinationOrdered By: Shubham Blanco on 09-12-2024 MCV (RBC) [Entitic vol] 100.2 fL High 80-94 [facility] Magnesiumon 09-12-2024 Magnesium [Mass/Vol] 2.0 mg/dL Normal 1.6-2.6 [facility] Comment on above: Performed By: #### L 3400.5105, L3200.1600, L503.7505, L509.7001 #### [facility] [address] [place], [address] Magnesium measurementOrdered By: Shubham Blanco on 09-12-2024 Magnesium [Mass/Vol] 2.0 mg/dL 1.6-2.6 [facility] Mean corpuscular hemoglobin (MCH) determinationOrdered By: Shubham Blanco on 09-12-2024 MCH (RBC) [Entitic mass] 34.0 pg High 27.0-32.0 [facility] Mean corpuscular hemoglobin concentration (MCHC) determinationOrdered By: Shubham Blanco on 09-12-2024 MCHC (RBC) [Mass/Vol] 33.9 g/dL 32-36 [facility] Mean platelet volume determi nationOrdered By: Shubham Blanco on 09-12-2024 Platelet mean volume (Bld) [Entitic vol] 10.1 fL 6.2-12.0 [facility] Mitochondria Ab Ql (S)Ordere d By: Shubhammary jo Blanco on 09-12-2024 Anti-Mitochondrial Antibody <20.0 Units 0.0-20.0 [facility] Comment on above: Negative 0.0 - 20.0 Equivocal 20.1 - 24.9 Positive >24.9Mitochondrial (M2) Antibodies are found in 90-96% ofpatients with primary biliary cirrhosis. Monocyte percentageOrdered B y: Shubham Blanco on 09-12-2024 Monocytes/100 WBC (Bld) 13.9 % High 0-10 [facility] Neutrophil percentageOrdered By: Shubham Blanco on 09-12-2024 Neutrophils/100 WBC (Bld) 64.5 % 47-70 [facility] Nucleated red blood cell per centageOrdered By: Shubham Blanco on 09-12-2024 Nucleated RBC/100 WBC (Bld) [Ratio] 0 % 0-5 [facility] Phosphoruson 09-12-2024 Phosphate [Mass/Vol] 3.4 mg/dL Normal 2.5-4.9 [facility] Comment on above: Performed By: #### L 3400.5105, L3200.1600, L503.7505, L509.7001 #### [facility] [address] [place], [address] Phosphorus measurementOrdere d By: Shubham Blanco on 09-12-2024 Phosphorus Level 3.4 mg/dL 2.5-4.9 [facility] Platelet countOrdered By: Tessa Blanco on 09-12-2024 Platelets (Bld) [#/Vol] 220 10*3/uL 150-450 [facility] Potassium measurementOrdered By: Shubham Blanco on 09-12-2024 Potassium [Moles/Vol] 4.4 mmol/L 3.5-5.1 [facility] Prothrombin Time w/INRon INR Coag (PPP) [Relative time] 1.0 {INR} Normal [facility] Comment on above: Performed By: #### L 3400.5105, L3200.1600, L503.7505, L509.7001 #### [facility] [address] [place], [address] PT Coag (PPP) [Time] 13.3 s Normal 11.7-14.9 [facility] Comment on above: Performed By: #### L 3400.5105, L3200.1600, L503.7505, L509.7001 #### [facility] [address] [place], [address] Prothrombin timeOrdered By: Shubham Blanco on 09-12-2024 PT Coag (PPP) [Time] 13.3 s 11.7-14.9 [facility] RBC Auto (Bld) [#/Vol]Ordere d By: Shubham Blanco on 09-12-2024 RBC (Bld) [#/Vol] 4.09 10*6/uL Low 4.6-6.2 [facility] CAN PILER abOrdered By: Shubham Goldman and on 09-12-2024 CAN PILER Antibody [facility] Comment on above: Test not performed SCL-70 extractable nuclear A b Qn (S)Ordered By: Shubham Blanco on 09-12-2024 Scl-70 (Scleroderma) Antibody [facility] Comment on above: Test not performed SS-A IgG antibody assayOrder ed By: Shubham Blanco on 09-12-2024 SS-A/Ro IgG Antibody [facility] Comment on above: Test not performed SS-B IgG antibody assayOrder ed By: Shubham Blanco on 09-12-2024 SS-B/La IgG Antibody [facility] Comment on above: Test not performed Serum DNA double strand anti body assay (units/volume)Ordered By: Shubham Blanco on 09-12-2024 DNA double strand Ab Qn (S) [facility] Comment on above: Test not performed Serum Scl-70 antibody assay (units/volume)Ordered By: Shubham Blanco on 09-12-2024 SCL-70 extractable nuclear Ab Qn (S) [facility] Comment on above: Test not performed Serum anion gap measurementO rdered By: Shubham Blanco on 09-12-2024 Anion gap [Moles/Vol] 6 mmol/L 5-15 [facility] Serum globulin measurementOr dered By: Shubham Blanco on 09-12-2024 Globulin (S) [Mass/Vol] 4.2 g/dL 2.2-4.2 [facility] Serum hepatitis B virus surf jose antibody IgG detectionOrdered By: Shubham Blanco on 09-12-2024 HBV surface IgG Ql (S) Non-Reactive [facility] Comment on above: Non Reactive: Incons istent with immunity less than <10 mIU/mL Reactive: Consistent with immunity greater than or equal to 10 mIU/mL Serum mitochondria antibody detectionOrdered By: Shubham Blanco on 09-12-2024 Mitochondria Ab Ql (S) <20.0 Units 0.0-20.0 [facility] Comment on above: Negative 0.0 - 20.0 Equivocal 20.1 - 24.9 Positive >24.9Mitochondrial (M2) Antibodies are found in 90-96% ofpatients with primary biliary cirrhosis. Serum or plasma actin IgG an tibody assay (units/volume)Ordered By: Shubham Blanco on 09-12-2024 Actin IgG Qn 10 Units 0-19 [facility] Comment on above: Negative 0 - 19 Weak positive 20 - 30 Moderate to strong positive >30 Actin Antibodies are found in 52-85% of patients with autoimmune hepatitis or chronic active hepatitis and in 22% of patients with primary biliary cirrhosis. Serum or plasma alanine guevara otransferase (ALT) measurementOrdered By: Shubham Blanco on 09-12-2024 ALT [Catalytic activity/Vol] 36 U/L 16-61 [facility] Serum or plasma albumin reid urement (mass/volume)Ordered By: Shubham Blanco on 09-12-2024 Albumin [Mass/Vol] 3.3 g/dL 3.2-5.0 [facility] Serum or plasma alkaline adelfo sphatase measurementOrdered By: Shubham Blanco on 09-12-2024 ALP [Catalytic activity/Vol] 134 U/L High 45-117 [facility] Serum or plasma calcium reid urement (mass/volume)Ordered By: Shubham Blanco on 09-12-2024 Calcium [Mass/Vol] 9.6 mg/dL 8.5-10.1 [facility] Serum or plasma creatinine m easurement (mass/volume)Ordered By: Shubham Blanco 09-12-2024 Creatinine [Mass/Vol] 0.72 mg/dL 0.70-1.30 [facility] Comment on above: The validity of the calculated GFR & GFRAA in patients over 70 years has not been determined. Clinical correlation is essential. Serum or plasma iron saturat ion measurement (mass fraction)Ordered By: Shubham Blanco on 09-12-2024 Iron saturation [Mass fraction] 27.7 % 15.0-55.0 [facility] Serum or plasma urea nitroge n measurement (mass/volume)Ordered By: Shubham Blanco on 09-12-2024 Urea nitrogen [Mass/Vol] 11 mg/dL 7-18 [facility] Schultz antibody assayOrdered By: Shubham Blanco on 09-12-2024 SM Antibody TNP [facility] Comment on above: Test not performed Sodium levelOrdered By: Nilda Blanco on 09-12-2024 Sodium [Moles/Vol] 137 mmol/L 136-145 [facility] TIBCOrdered By: Shubham granados on 09-12-2024 Total Iron Binding Capacity 278 ug/dL 250-450 [facility] Total proteinOrdered By: Gennaro Blanco on 09-12-2024 Protein [Mass/Vol] 7.5 g/dL 6.4-8.2 [facility] Venous blood ammonia measure mentOrdered By: Shubham Blanco on 09-12-2024 Ammonia (P) [Moles/Vol] 30.0 umol/L -32 [facility] White blood cell (WBC) count Ordered By: Shubham Blanco on 09-12-2024 WBC (Bld) [#/Vol] 7.9 10*3/uL 4.4-11.[address] [facility] [address] Abd/Pelvis W/WO Contrasto n 09-06-2024 CT Abd/Pelvis W/WO Contrast [facility] [address] [place] [id number] Abd/Pelvis W/WO Contrast MR#: [id number] Acct: [id number] Name: NAZARIO HUTTON Rep #: [id number] : 1950 M 73 From: Teodoro Hill MD PCP: Dr. Valeriano Beasley MD Status: REG CLI Study: CT Abd/Pelvis W/WO Contrast Date of Exam: 08/24 11/15 Exam# [id number] Ordering Dr: Shubham Blanco MD PROCEDURE: CT [...] Valeriano Beasley MD; Dr. 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 Normal [facility] KAPPA/NEUMANN,FREE,SERon 2024 Immunoglobulin light chains.kappa.free (S) [Mass/Vol] 38.8 mg/L High 3.3-19.4 [facility] Comment on above: Order Comment: Medina peck Type: BLOOD SPECIMEN Ordering Facility: [facility] Address: [address] [place] [address] Result Comment: Rare ly, increased serum free light chains levels may not be detected or accurately quantified due to prozone phenomenon or in high viscosity samples using this immunoturbidimetric assay. Correlation with other laboratory results and clinical findings is recommended. The [place] Free Light Chain was performed using the Binding Site Optilite immunoturbidimetric method. Result obtained with different assay methods or kits cannot be used interchangeably. Performed By: #### 2 284-8, 2775-2, 2132-03 #### [facility] Pradama CLIA [id number] [address] [place] [address] [place] [facility] Immunoglobulin light chains.kappa/Immunogl obulin light chains.lambda (S) [Mass ratio] 1.24 Normal 0.26-1.65 [facility] Comment on above: Order Comment: Medina peck Type: BLOOD SPECIMEN Ordering Facility: [facility] Address: [address] [place] [address] Performed By: #### 2 284-8, 2885-2, 2132-03 #### [facility] CLIA [id number] [address] [place] [address] [place] Immunoglobulin light chains.lambda.free [Mass/Vol] 31.4 mg/L High 5.7-26.3 [facility] Comment on above: Order Comment: Speci men Type: BLOOD SPECIMEN Ordering Facility: [facility] Address: [address] [place] [address] Result Comment: Rare ly, increased serum free [...] By: #### 2 284-8, 2885-2, 2132-03 #### [facility] CLIA [id number] [address] [place] [address] [place] PROTEIN ELECTROPHORESIS SERU M (P)on 08-30-2024 Albumin [Mass/Vol] 4.18 g/dL Normal 3.43-5.41 [facility] Comment on above: Order Comment: Speci men Type: BLOOD SPECIMEN Ordering Facility: [facility] Address: [address] [place] [address] Performed By: #### 2 284-8, 2885-2, 2132-03 #### [facility] CLIA [id number] [address] [place] [address] [place] Alpha 1 globulin Elph [Mass/Vol] 0.38 g/dL Normal 0.18-0.43 [facility] Comment on above: Order Comment: Speci men Type: BLOOD SPECIMEN Ordering Facility: [facility] Address: [address] [place] [address] Performed By: #### 2 284-8, 2885-2, 2132-03 #### [facility] CLIA [id number] [address] [place] Alpha 2 globulin Elph [Mass/Vol] 0.87 g/dL Normal 0.42-0.98 [facility] Comment on above: Order Comment: Speci men Type: BLOOD SPECIMEN Ordering Facility: [facility] Address: [address] [place] [address] Performed By: #### 2 284-8, 2885-2, 2132-03 #### [facility] CLIA [id number] [address] [place] Beta globulin Elph [Mass/Vol] 1.05 g/dL Normal 0.61-1.17 [facility] Comment on above: Order Comment: Speci men Type: BLOOD SPECIMEN Ordering Facility: [facility] Address: [address] [place] [address] Performed By: #### 2 284-8, 2882, 2132-03 #### [facility] CLIA [id number] [address] [place] [address] [place] [facility] Gamma globulin Elph [Mass/Vol] 1.12 g/dL Normal 0.53-1.51 [facility] Comment on above: Order Comment: Speci men Type: BLOOD SPECIMEN Ordering Facility: [facility] Address: [address] [place] [address] Performed By: #### 2 284-8, 2884-08, 2132-03 #### [facility] CLIA [id number] [address] [place] [address] [place] INTERPRETATION COMMENT FOR PROTEIN ELECTROPHORESIS The atypical region is relatively poorly defined and may represent an unusual presentation of polyclonal immunoglobulins, but cannot rule out the presence of a low level M protein. If clinically indicated, monoclonal protein analysis and serum free light chain analysis are suggested to evaluate further for monoclonal gammopathy. Normal [facility] Comment on above: Order Comment: Speci men Type: BLOOD SPECIMEN Ordering Facility: [facility] Address: [address] [place], [place] [address] Performed By: #### 2 284-8, 288-2, 2132-03 #### [facility] CLIA [id number] [address] [place] [facility] M-PROTEIN LOCATION Normal [facility] Comment on above: Order Comment: Speci men Type: BLOOD SPECIMEN Ordering Facility: [facility] Address: [address] [place] [address] Result Comment: Not Applicable. Performed By: #### 2 284-8, 2885-2, 2132-03 #### [facility] CLIA [id number] [address] [place] Protein Fractions [Interp] An atypical region of restricted mobility is identified on protein electrophoresis. Abnormal No definitive M protein is identified on protein electrophore sis. [facility] Comment on above: Order Comment: Speci men Type: BLOOD SPECIMEN Ordering Facility: [facility] Address: [address] [place] [address] Performed By: #### 2 284-8, 2885-2, 2132-03 #### [facility] CLIA [id number] [address] [place] Protein.monoclonal Elph [Mass/Vol] 0.00 g/dL Normal <=0.00 [facility] Comment on above: Order Comment: Speci men Type: BLOOD SPECIMEN Ordering Facility: [facility] Address: [address] [place] [address] Performed By: #### 2 284-8, 288-2, 2132-03 #### [facility] CLIA [id number] [address] [place] SPE STAFF REVIEW Reviewed by Lizbeth navarrete M.D. Normal [facility] Comment on above: Order Comment: Speci men Type: BLOOD SPECIMEN Ordering Facility: [facility] Address: [address] [place] [address] Performed By: #### 2 284-8, 2885-2, 2132-03 #### [facility] CLIA [id number] [address] [place] Prot SerPl-mCncon 08-30-2024 Protein [Mass/Vol] 7.6 g/dL Normal 6.3-8.0 [facility] Comment on above: Order Comment: Speci men Type: BLOOD SPECIMEN Ordering Facility: [facility] Address: [address] [place], [place] [address] Performed By: #### C OPPER #### [facility] CLIA [id number] [address] [place] [address] [place] C4 COMPLEMENTon 08-20-2024 Complement C4 [Mass/Vol] 32 mg/dL 13 - 46 mg/dL [facility] Complement C4 [Mass/Vol]on 0 08-20-2024 Interpretation and review of laboratory results Normal [facility] C4 SerPl-mCncon 08-19-2024 Complement C4 [Mass/Vol] 32 mg/dL Normal 13-46 [facility] Comment on above: Order Comment: Speci men Type: BLOOD SPECIMEN Ordering Facility: [facility] Address: [facility] [place] [address] Performed By: #### 4 498-2 #### [facility] CLIA [id number] [address] [place] [address] CNOVon 08-19-2024 CNOV Office Visit (ALLMED ) -- NAZARIO HTUTON ([id number]) 1950 M Date Time Provider Department 08/19/24 [...] due to lower GI bleed from diverticulosis) Financial Accounting Analyst's nodules 03/15/2021 Valvular heart disease 05/18/2023 Echo [...] DAILY. FOR (more content not included)... Normal [facility] CNOVon 07-31-2024 CNOV Office Visit (FAMPWS ) -- NAZARIO HUTTON ([id number]) 1950 M Date Time Provider Department 07/31/24 [...] due to lower GI bleed from diverticulosis) Financial Accounting Analyst's nodules 03/15/2021 Valvular heart disease 05/18/2023 Echo [...] Smokeless tobacco: (more content not included)... Normal [facility] Emergency Department Summary on 07-18-2024 Emergency Department Summary [facility] Medical Records Department [address] [place] [address] Emergency Department Summary 07/18/24 MR#: [id number] Acct: [id number] Name: NAZARIO HUTTON Rep #: [id number] : 1950 73 From: Stan Gilbert DO [...] drooling or wheezing. He denies any rash. [facility] Medical History High serum parathyroid hormone (PTH) Heart murmur Elevated alkaline phosphatase level Elevated PSA Diverticulosis AVM (arteriovenous malformation) of colon Vitamin D deficiency Gout Alcohol abuse Essential hypertension Chest pain Anxiety Depression Myocardial infarct Chest pain Acute blood loss anemia Bloody diarrhea Coronary artery disease Atherosclerotic heart disease of saxman coronary artery without angina pectoris ST elevation [place] (STEMI) ( 11/29/21) Hyperlipidemia Hypertension Home Medications [...] disease Hypertension Myocardial infarction age 53 following [place]. Surgical History H/O colonoscopy S/P cataract extraction [...] or polyur (more content not included)... Normal [facility] Gastroenterology Visit Repor ton 06-04-2024 Gastroenterology Visit Report [facility] Gastroenterology [address] [place] [address] OFFICE VISIT Date of Service: 06/04/24 MR#: [id number] Acct: [id number] Name: NAZARIO HUTTON Rep #: [id number] : 1950 Provider: Dr. Shubham granados MD Age/Sex: 73/M Location: [facility] Status: Signed Intake Vital Signs 04/15/24 11:06 [...] Coronary artery disease Atherosclerotic heart disease of saxman coronary artery without angina pectoris ST elevation [place] (STEMI) ( 11/29/21) Hyperlipidemia Hypertension Surgical History H/O colonoscopy S/P cataract extraction Presence of coronary angioplasty implant and graft ( 11/29/21) Family History Mother COPD (chronic obstructive pulmonary disease) Lung cancer Father Heart disease Hypertension Myocardial infarction age 53 following [place]. Social History household members: none Smoking Status: [...] movements, behavi (more content not included)... Normal [facility] CNOVon 05-29-2024 CNOV Office Visit (FAMPWS ) -- KWESINAZARIO SHEPPARD ([id number]) 1950 M Date Time Provider Department 05/29/24 1:00 PM [facility] During your visit today, we recorded [...] due to lower GI bleed from diverticulosis) Financial Accounting Analyst's nodules 03/15/2021 Valvular heart disease 05/18/2023 Echo [...] (more content not included)... Normal [facility] 05-20-2024 [facility] Telephone ([facility]) -- NAZARIO HUTTON ([id number]) 1950 M Date Time Provider Department 05/20/24 [facility] During your visit today, we recorded [...] disorder [N42.9] 03/15/2021 Medication management [Z79.899] 03/15/2021 Financial Accounting Analyst's nodules [L28.1] 03/15/2021 Elevated PSA [R97.20] 03/17/2021 [...] Status:Closed by HERON ENRIQUEZ on 05/21/24 Normal [facility] HAV IgM Ser Qlon 05-16-2024 HAV IgM Ql (S) Negative Normal Negative [facility] Comment on above: Order Comment: Speci liv Type: BLOOD SPECIMENOrdering Facility: [facility] Address: [address] [place] [address] Result Comment: No e vidence of recent infection with Hepatitis A virus. Performed By: #### 2 2314-9, 5195-3, 70601-4 ####[facility] [id number] [place] [address] [place] HBV core IgM Ser Qlon 2023 HBV core IgM Ql (S) Negative Normal Negative [facility] Comment on above: Order Comment: Speci men Type: BLOOD SPECIMEN Ordering Facility: [facility] Address: [address] [place] [address] Result Comment: No e vidence of recent infection with Hepatitis B virus. Should recent infection be suspected, repeat testing may be considered 3-4 weeks after this draw. Performed By: #### 2 2314-9, 5195-3, 68477-1 #### [facility] CLIA [id number] [address] [place] [address] [place] HBV surface Ag Ser Qlon 10-2 4-2024 HBV surface Ag Ql (S) Negative Normal Negative [facility] Comment on above: Order Comment: Speci men Type: BLOOD SPECIMEN Ordering Facility: [facility] Address: [address] [place] [address] Performed By: #### 2 2314-9, 5195-3, 30066-1 #### [facility] CLIA [id number] [address] [place] [address] [place] HCV RNA DEMARIO+probe Qnon 05-16 HCV RNA DEMARIO+probe Ql Not detected Normal Not detected [facility] Comment on above: Order Comment: Speci men Type: BLOOD SPECIMENOrdering Facility: [facility] Address: [address] [place] [address] Performed By: #### 1 1011-4 ####[facility] [id number] [address] [place] ABD Limited w/ Elastographyo n 05-14-2024 ABD Limited w/ Elastography [facility] Imaging Services [address] [place] [address] ABD Limited w/ Elastography MR#: [id number] Acct: [id number] Name: NAZARIO HUTTON Rep #: [id number] : 1950 M 73 From: Raymundo madison MD PCP: Dr. Valeriano Beasley MD Status: [facility] Study: ABD Limited w/ Elastography Date of Exam: 04/24 09/16 Exam# [id number] Ordering Dr: Suzanna Dawson [id number] STUDY: ABDOMINAL ULTRASOUND - RIGHT UPPER QUADRANT; ELASTOGRAPHY REASON FOR VISIT: Male, 73 years old. Elevated liver enzymes. TECHNIQUE: Ultrasound evaluation of the right upper quadrant was performed with real-time and static alvarado-scale imaging. Point quantification shear wave elastography was performed ([employer]). TECHNICAL QUALITY: Limited. Examination limited due to [...] CC: Dr. Valeriano Beasley MD; DAVID Martin Developer Evangelist: Signed [facility] 05-14-2024 [facility] Telephone ([facility]) -- NAZARIO HUTTON ([id number]) 1950 M Date Time Provider Department 05/14/24 SUZANNA DAWSON During your visit today, we recorded the following information about you: Lupillo Moura LPN 05/14/2024 2:50 PM Signed Received results of pt's US ordered by Suzanna mosher at [facility]. 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 We need to get him in with a liver specialist. Does he wish to stay in [place] [facility]. Or does he prefer to stay with [facility]? I also need to do a [...] phone numbers. Dr Ines Galeano-[phone] Dr Barron [phone]. Please have pt contact them to schedule [...] [K74.00] Order(s):HEP ACUTE PANEL/RNA [SQHACRNA] Order #: [id number] FUTURE CONSULT TO GASTROENTEROLOGY [9010] Order #: [id number]: 1 FUTURE Prescriptions as of 05/20/2024 - [...] (PTH) [R79.89] 08/01/2018more content not included)... Normal [facility] Baljit 05-13-2024 [facility] Telephone (FAMPWS) -- NAZARIO HUTTON ([id number]) 1950 M Date Time Provider Department 05/13/24 [...] Fully Assessed Reason for Visit: Patient Question [8697] Prescriptions as of 05/13/2024 - amLODIPine (NORVASC) [...] disorder [N42.9] 03/15/2021 Medication management [Z79.899] 03/15/2021 Financial Accounting Analyst's nodules [L28.1] 03/15/2021 Elevated PSA [R97.20] 03/17/2021 [...] Encounter Status:Closed by KIRSTEN MARC on 05/13/24 [facility] CNOVon 05-01-2024 CNOV Office Visit (FAMPWS ) -- NAZARIO HUTTON ([id number]) 1950 M Date Time Provider Department 05/01/24 1:00 PM [facility] During your visit today, we recorded [...] to lipid rich plaque 12/06/[address] 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 Normal [facility] Baljit 05-01-2024 [facility] Telephone (FAMPWS) -- NAZARIO HUTTON ([id number]) 1950 M Date Time Provider Department 05/01/24 VALERIANO BEASLEY During your visit today, we recorded the following information about you: Alexia Waggoner LPN 05/01/2024 8:34 AM Signed Lisa with Dr. Vargas's office (cardiology) called for recent lipid lab work. Pt has an apt. Pt was identified with name and date of . FAX: [phone]. Done. Alexia Waggoner LPN Allergies As of [...] disorder [N42.9] 03/15/2021 Medication management [Z79.899] 03/15/2021 Financial Accounting Analyst's nodules [L28.1] 03/15/2021 Elevated PSA [R97.20] 03/17/2021 [...] Status:Closed by ALEXIA WAGGONER on 05/01/24 Normal [facility] Cardiology Visit Reporton Cardiology Visit Report [facility] 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 Social Hi (more content not included)... Normal [facility] 25(OH)D3 [facility] 2023 25-hydroxyvitamin D3 [Mass/Vol] 27.1 ng/mL Low 31.0-80.0 [facility] Comment on above: Order Comment: Speci men Type: BLOOD SPECIMEN Ordering Facility: [facility] Address: [address] [place] [address] Result Comment: Clas sification of 25 [place] Vitamin D status: Deficiency/Insufficiency: < or = 30 ng/ml. Sufficiency/Optimal Levels: 31-80 ng/mL Toxicity: > 100 ng/mL. Test performed by chemiluminescent immunoassay. Performed By: #### 1 989-3 #### [facility] CLIA [id number] [address] [place] [address] [place] CBC W Auto Differential pane l (Bld)on 04-04-2024 Basophils (Bld) [#/Vol] 0.06 10*3/uL Normal <0.11 [facility] Comment on above: Order Comment: Speci men Type: BLOOD SPECIMEN Ordering Facility: [facility] Address: [address] [place] [address] Performed By: #### 2 2314-9, 5194-3, 69448-5 #### [facility] CLIA [id number] [address] [place] [address] [place] Basophils/100 WBC (Bld) 0.7 % Normal [facility] Comment on above: Order Comment: Speci men Type: BLOOD SPECIMEN Ordering Facility: [facility] Address: [address] [place] [address] Performed By: #### 2 2314-9, 3, 80472-2 #### [facility] CLIA [id number] [address] [place] [address] [place] Differential cell count method Nom (Bld) Auto Normal [facility] Comment on above: Order Comment: Speci men Type: BLOOD SPECIMEN Ordering Facility: [facility] Address: [address] [place] [address] Performed By: #### 2 2314-9, 3, 91129-8 #### [facility] CLIA [id number] [address] [place] [address] [place] Eosinophils (Bld) [#/Vol] 0.43 10*3/uL Normal <0.46 [facility] Comment on above: Order Comment: Speci men Type: BLOOD SPECIMEN Ordering Facility: [facility] Address: [address] [place] [address] Performed By: #### 2 2314-9, 5195-3, 19457-0 #### [facility] CLIA [id number] [address] [place], [place] [address] [place] Eosinophils/100 WBC (Bld) 5.1 % Normal [facility] Comment on above: Order Comment: Speci men Type: BLOOD SPECIMEN Ordering Facility: [facility] Address: [address] [place] [address] Performed By: #### 2 2314-9, 5194-3, 30139-6 #### [facility] CLIA [id number] [address] [place] [address] [place] Erythrocyte distribution width (RBC) [Ratio] 13.1 % Normal 11.5-15.0 [facility] Comment on above: Order Comment: Speci men Type: BLOOD SPECIMEN Ordering Facility: [facility] Address: [address] [place] [address] Performed By: #### 2 2314-9, 5194-3, 26591-7 #### [facility] CLIA [id number] [address] [place] [address] [place] Hematocrit (Bld) [Volume fraction] 39.0 % Normal 39.0-51.0 [facility] Comment on above: Order Comment: Speci men Type: BLOOD SPECIMEN Ordering Facility: [facility] Address: [address] [place] [address] Performed By: #### 2 2314-9, 3, 75002-1 #### [facility] CLIA [id number] [address] [place], [place] [address] [place] Hemoglobin (Bld) [Mass/Vol] 12.8 g/dL Low 13.0-17.0 [facility] Comment on above: Order Comment: Speci men Type: BLOOD SPECIMEN Ordering Facility: [facility] Address: [address] [place] [address] Performed By: #### 2 2314-9, 5-3, 47381-4 #### [facility] CLIA [id number] [address] [place] [address] [place] Immature granulocytes (Bld) [#/Vol] 0.15 10*3/uL High <0.10 [facility] Comment on above: Order Comment: Speci men Type: BLOOD SPECIMEN Ordering Facility: [facility] Address: [address] [place] [address] Performed By: #### 2 2314-9, 5-3, 27845-2 #### [facility] CLIA [id number] [address] [place] [address] [place] Immature granulocytes/100 WBC (Bld) 1.8 % Normal [facility] Comment on above: Order Comment: Speci men Type: BLOOD SPECIMEN Ordering Facility: [facility] Address: [address] [place] [address] Performed By: #### 2 2314-9, 53, 07118-5 #### [facility] CLIA [id number] [address] [place] [address] [place] Lymphocytes (Bld) [#/Vol] 0.64 10*3/uL Low 1.00-4.00 [facility] Comment on above: Order Comment: Speci men Type: BLOOD SPECIMEN Ordering Facility: [facility] Address: [address] [place] [address] Performed By: #### 2 2314-9, 53, 91215-7 #### [facility] CLIA [id number] [address] [place] [address] [place] Lymphocytes/100 WBC (Bld) 7.6 % Normal [facility] Comment on above: Order Comment: Speci men Type: BLOOD SPECIMEN Ordering Facility: [facility] Address: [address] [place] [address] Performed By: #### 2 2314-9, 5-3, 02655-1 #### [facility] CLIA [id number] [address] [place] [address] [place] MCH (RBC) [Entitic mass] 34.9 pg High 26.0-34.0 [facility] Comment on above: Order Comment: Speci men Type: BLOOD SPECIMEN Ordering Facility: [facility] Address: [address] [place] [address] Performed By: #### 2 2314-9, 5195-3, 22796-6 #### [facility] CLIA [id number] [address] [place] [address] [place] MCHC (RBC) [Mass/Vol] 32.8 g/dL Normal 30.5-36.0 [facility] Comment on above: Order Comment: Speci men Type: BLOOD SPECIMEN Ordering Facility: [facility] Address: [address] [place] [address] Performed By: #### 2 2314-9, 5195-3, 34988-9 #### [facility] CLIA [id number] [address] [place] [address] [place] MCV (RBC) [Entitic vol] 106.3 fL High 80.0-100.0 [facility] Comment on above: Order Comment: Speci men Type: BLOOD SPECIMEN Ordering Facility: [facility] Address: [address] [place] [address] Performed By: #### 2 2314-9, 5195-3, 89575-3 #### [facility] CLIA [id number] [address] [place] [address] [place] Monocytes (Bld) [#/Vol] 0.96 10*3/uL High <0.87 [facility] Comment on above: Order Comment: Speci men Type: BLOOD SPECIMEN Ordering Facility: [facility] Address: [address] [place] [address] Performed By: #### 2 2314-9, 5195-3, 42560-3 #### [facility] CLIA [id number] [address] [place] [address] [place] Monocytes/100 WBC (Bld) 11.4 % Normal [facility] Comment on above: Order Comment: Speci men Type: BLOOD SPECIMEN Ordering Facility: [facility] Address: [address] [place] [address] Performed By: #### 2 2314-9, 5195-3, 26810-9 #### [facility] CLIA [id number] [address] [place] [address] [place] Neutrophils (Bld) [#/Vol] 6.17 10*3/uL Normal 1.45-7.50 [facility] Comment on above: Order Comment: Speci men Type: BLOOD SPECIMEN Ordering Facility: [facility] Address: [address] [place] [address] Performed By: #### 2 2314-9, 5195-3, 36639-2 #### [facility] CLIA [id number] [address] [place] [address] [place] Neutrophils/100 WBC (Bld) 73.4 % Normal [facility] Comment on above: Order Comment: Speci men Type: BLOOD SPECIMEN Ordering Facility: [facility] Address: [address] [place] [address] Performed By: #### 2 2314-9, 5195-3, 18645-5 #### [facility] CLIA [id number] [address] [place] [address] [place] Nucleated RBC (Bld) [#/Vol] 10*3/uL Normal <0.01 [facility] Comment on above: Order Comment: Speci men Type: BLOOD SPECIMEN Ordering Facility: [facility] Address: [address] [place] [address] Performed By: #### 2 2314-9, 5195-3, 64382-5 #### [facility] CLIA [id number] [address] [place] [address] [place] Nucleated RBC/100 WBC (Bld) [Ratio] 0.0 /100 WBC Normal [facility] Comment on above: Order Comment: Speci men Type: BLOOD SPECIMEN Ordering Facility: [facility] Address: [address] [place] [address] Performed By: #### 2 2314-9, 5195-3, 23366-2 #### [facility] CLIA [id number] [address] [place] [address] [place] Platelet mean volume (Bld) [Entitic vol] 10.5 fL Normal 9.0-12.7 [facility] Comment on above: Order Comment: Speci men Type: BLOOD SPECIMEN Ordering Facility: [facility] Address: [address] [place] [address] Performed By: #### 2 2314-9, 5195-3, 66907-7 #### [facility] CLIA [id number] [address] [place] [address] [place] Platelets (Bld) [#/Vol] 193 10*3/uL Normal 150-400 [facility] Comment on above: Order Comment: Speci men Type: BLOOD SPECIMEN Ordering Facility: [facility] Address: [address] [place] [address] Performed By: #### 2 2314-9, 5195-3, 51872-1 #### [facility] CLIA [id number] [address] [place] [address] [place] RBC (Bld) [#/Vol] 3.67 10*6/uL Low 4.20-6.00 [facility] Comment on above: Order Comment: Speci men Type: BLOOD SPECIMEN Ordering Facility: [facility] Address: [address] [place] [address] Performed By: #### 2 2314-9, 5195-3, 94806-6 #### [facility] CLIA [id number] [address] [place] [address] [place] WBC (Bld) [#/Vol] 8.41 10*3/uL Normal 3.70-11.00 [facility] Comment on above: Order Comment: Speci men Type: BLOOD SPECIMEN Ordering Facility: [facility] Address: [address] [place] [address] Performed By: #### 2 2314-9, 5195-3, 82772-0 #### [facility] CLIA [id number] [address] [place] [address] CNOVon 04-04-2024 CNOV Office Visit (FAMPWS ) -- NAZARIO HUTTON ([id number]) 1950 Date Time Provider Department 04/04/24 11:40 AM NI SAUCEDA During your visit today, we recorded the following information about you: Pulse Respiration Blood pressure Weight 58/minute 14/minute 155/84 92.5 kg Ni Sauceda APRN.[facility] 04/04/2024 11:56 AM Signed Chief Complaint Patient presents with: ER F/U HPI Nazariobrissa Hutton is a 73 year old male who presents here today for Above Complaints.. Patient presents for ER follow up. Patient [facility] for angioedema. Losartan d/c'd by Dr. [...] to lower GI bleed from diverticulosis) 03/15/2021: Financial Accounting Analyst's nodules 05/18/2023: Valvular heart disease Comment: Echo [...] OF SYS (more content not included)... Normal [facility] Comprehensive metabolic 2000 panelon 04-04-2024 Albumin [Mass/Vol] 3.8 g/dL Low 3.9-4.9 [facility] Comment on above: Order Comment: Speci men Type: BLOOD SPECIMEN Ordering Facility: [facility] Address: [address] [place] [address] Performed By: #### 1 989-3 #### [facility] CLIA [id number] [address] [place] [address] [place] [address] [place] ALP [Catalytic activity/Vol] 110 U/L Normal 38-113 [facility] Comment on above: Order Comment: Speci men Type: BLOOD SPECIMEN Ordering Facility: [facility] Address: [address] [place] [address] Performed By: #### 1 989-3 #### [facility] CLIA [id number] [address] [place] [address] [place] ALT [Catalytic activity/Vol] 38 U/L Normal 10-54 [facility] Comment on above: Order Comment: Speci men Type: BLOOD SPECIMEN Ordering Facility: [facility] Address: [address] [place] [address] Performed By: #### 1 989-3 #### [facility] CLIA [id number] [address] [place] [address] [place] Anion gap [Moles/Vol] 11 mmol/L Normal 8-15 [facility] Comment on above: Order Comment: Speci men Type: BLOOD SPECIMEN Ordering Facility: [facility] Address: [address] [place] [address] Performed By: #### 1 989-3 #### [facility] CLIA [id number] [address] [place] [address] [place] AST [Catalytic activity/Vol] 47 U/L High 14-40 [facility] Comment on above: Order Comment: Speci men Type: BLOOD SPECIMEN Ordering Facility: [facility] Address: [address] [place] [address] Performed By: #### 1 989-3 #### [facility] CLIA [id number] [address] [place] [address] [place] Bilirubin [Mass/Vol] 0.4 mg/dL Normal 0.2-1.3 [facility] Comment on above: Order Comment: Speci men Type: BLOOD SPECIMEN Ordering Facility: [facility] Address: [address] [place] [address] Performed By: #### 1 989-3 #### [facility] CLIA [id number] [facility] [address] [place] [address] [place] Calcium [Mass/Vol] 9.7 mg/dL Normal 8.5-10.2 [facility] Comment on above: Order Comment: Speci men Type: BLOOD SPECIMEN Ordering Facility: [facility] Address: [address] [place] [address] Performed By: #### 1 989-3 #### [facility] CLIA [id number] [address] [place] [address] [place] Chloride [Moles/Vol] 109 mmol/L High 98-107 [facility] Comment on above: Order Comment: Speci men Type: BLOOD SPECIMEN Ordering Facility: [facility] Address: [address] [place] [address] Performed By: #### 1 989-3 #### [facility] CLIA [id number] [address] [place] [address] [place] CO2 [Moles/Vol] 22 mmol/L Normal 22-30 [facility] Comment on above: Order Comment: Speci men Type: BLOOD SPECIMEN Ordering Facility: [facility] Address: [address] [place] [address] Performed By: #### 1 989-3 #### [facility] CLIA [id number] [address] [place] [address] [place] Creatinine [Mass/Vol] 0.74 mg/dL Normal 0.73-1.22 [facility] Comment on above: Order Comment: Speci men Type: BLOOD SPECIMEN Ordering Facility: [facility] Address: [address] [place] [address] Performed By: #### 1 989-3 #### [facility] CLIA [id number] [address] [place] [address] [place] Creatinine and Glomerular filtration rate.predicted panel (S/P/Bld) 96 mL/min/1.73m??? Normal >=60 [facility] Comment on above: Order Comment: Medina peck Type: BLOOD SPECIMEN Ordering Facility: [facility] Address: [address] [place] [address] Result Comment: Micaela mated Glomerular Filtration Rate [...] GFR. Performed By: #### 1 989-3 #### [facility] CLIA [id number] [address] [place] [address] [place] Glucose [Mass/Vol] 94 mg/dL Normal 74-99 [facility] Comment on above: Order Comment: Medina peck Type: BLOOD SPECIMEN Ordering Facility: [facility] Address: [address] [place] [address] Result Comment: The [place] Diabetes Association (ADA) provides guidance for cutoff [...] Standards of Medical Care in Diabetes 2016, [place] Diabetes Association. Diabetes Care. 2016.39(Suppl 1). Performed By: #### 1 989-3 #### [facility] CLIA [id number] [address] [place] [address] [place] Potassium [Moles/Vol] 4.6 mmol/L Normal 3.7-5.1 [facility] Comment on above: Order Comment: Speci men Type: BLOOD SPECIMEN Ordering Facility: [facility] Address: [address] [place] [address] Performed By: #### 1 989-3 #### [facility] CLIA [id number] [address] [place] [address] [place] Protein [Mass/Vol] 7.1 g/dL Normal 6.3-8.0 [facility] Comment on above: Order Comment: Speci men Type: BLOOD SPECIMEN Ordering Facility: [facility] Address: [address] [place] [address] Performed By: #### 1 989-3 #### [facility] CLIA [id number] [address] [place] [address] [place] Sodium [Moles/Vol] 142 mmol/L Normal 136-144 [facility] Comment on above: Order Comment: Speci men Type: BLOOD SPECIMEN Ordering Facility: [facility] Address: [address] [place] [address] Performed By: #### 1 989-3 #### [facility] CLIA [id number] [address] [place] [address] [place] Urea nitrogen [Mass/Vol] 15 mg/dL Normal 9-24 [facility] Comment on above: Order Comment: Speci men Type: BLOOD SPECIMEN Ordering Facility: [facility] Address: [address] [place] [address] Performed By: #### 1 989-3 #### [facility] CLIA [id number] [address] [place] [address] [place] Free PSA [Mass/Vol]on 2023 Free PSA/Total PSA [Mass fraction] 24 % Normal [facility] Comment on above: Order Comment: Speci men Type: BLOOD SPECIMEN Ordering Facility: [facility] Address: [address] [place] [address] Result Comment: Tota l and free PSA test methodology used is the Electrochemiluminescence Immunoassay by [employer]. Total or free PSA values by differing [...] 15.8% Performed By: #### 1 989-3 #### [facility] CLIA [id number] [address] [place] [address] [place] Prostate specific Ag [Mass/Vol] 5.42 ng/mL High <2.60 [facility] Comment on above: Order Comment: Speci men Type: BLOOD SPECIMEN Ordering Facility: [facility] Address: [address] [place] [address] Result Comment: Brynn lam PSA test methodology used is the Electrochemiluminescence Immunoassay by [employer]. Total PSA values by differing methodologies [...] these factors. REFERENCE: Nilson Mancuso M.D., M.P.H., Lanec Garber M.D., Ph.D., Patria Hartley M.D., Raquel Ahmadi, M.P.H., Lisseth Rush, Sc.D. Effect of Verification Bias on Screening for Prostate Cancer by Measurement of Prostatic Specific Antigen. N Engl J Med 2003,349:335-42. Performed By: #### 1 989-3 #### [facility] CLIA [id number] [address] [place] [address] [place] [facility] [place] LIPID PANEL, NONFASTINGon Cholesterol [Mass/Vol] 146 mg/dL Normal <200 [facility] Comment on above: Order Comment: Speci men Type: BLOOD SPECIMEN Ordering Facility: [facility] Address: [address] [place] [address] Result Comment: <200 mg/dL, Desirable 200-239 mg/dL, Borderline high >239 mg/dL, High Performed By: #### 1 989-3 #### [facility] CLIA [id number] [address] [place] [address] [place] HDL CHOLESTEROL, NF 55 mg/dL Normal >39 [facility] Comment on above: Order Comment: Speci men Type: BLOOD SPECIMEN Ordering Facility: [facility] Address: [address] [place] [address] Result Comment: 40-5 9 mg/dL, Acceptable >59 mg/dL, High: Negative risk factor for coronary heart disease <40 mg/dL, Low: Positive risk factor for coronary heart disease Performed By: #### 1 989-3 #### [facility] CLIA [id number] [address] [place] [address] OF [facility] LDL CHOLESTEROL, NF 74 mg/dL Normal <100 [facility] Comment on above: Order Comment: Speci men Type: BLOOD SPECIMEN Ordering Facility: [facility] Address: [address] [place] [address] Result Comment: <100 mg/dL, Optimal 100-129 mg/dL, Near optimal/above optimal 130-159 mg/dL, Borderline high 160-189 mg/dL, High >189 mg/dL, Very high Secondary prevention optimal LDL Cholesterol levels are recommended to be < 70 mg/dL Performed By: #### 1 989-3 #### [facility] CLIA [id number] [address] [place] [address] [place] LDL/HDL RATIO, NF 1.35 mg/dL Normal <2.54 [facility] Comment on above: Order Comment: Kristii men Type: BLOOD SPECIMEN Ordering Facility: [facility] Address: [address] [place] [address] Result Comment: Rhonda barnes: 1. National Cholesterol Education Program ATP III Guideline At-A-Glance Quick Desk Reference: National Heart, Lung, and Blood [place]. National Institutes of Health. 2001: NIH Publication No. 01-3305. 2. An International Atherosclerosis Society position paper: global recommendations for the management of dyslipidemia: executive summary, Atherosclerosis. 2014: 232(2):410-413. Performed By: #### 1 989-3 #### [facility] CLIA [id number] [address] [place] [address] [place] NON HDL CHOL, NF 91 mg/dL Normal <130 [facility] Comment on above: Order Comment: Medina peck Type: BLOOD SPECIMEN Ordering Facility: [facility] Address: [address] [place] [address] Result Comment: <130 mg/dL, Optimal 130-159 mg/dL, Near optimal/above optimal 160-189 mg/dL, Borderline high 190-219 mg/dL, High >219 mg/dL, Very high Secondary prevention optimal non HDL Cholesterol levels are recommended to be <100 mg/dL Performed By: #### 1 989-3 #### [facility] CLIA [id number] [address] [place] [address] [place] T CHOL/HDL RATIO NF 2.65 mg/dL Normal <5.10 [facility] Comment on above: Order Comment: Kristii men Type: BLOOD SPECIMEN Ordering Facility: [facility] Address: [address] [place] [address] Performed By: #### 1 989-3 #### [facility] CLIA [id number] [address] [place] [address] [place] TRIGLYCERIDES, NF 83 mg/dL Normal <150 [facility] Comment on above: Order Comment: Kristii men Type: BLOOD SPECIMEN Ordering Facility: [facility] Address: [address] [place] [address] Result Comment: <150 mg/dL, Normal 150-199 mg/dL, Borderline high 200-499 mg/dL, High >499 mg/dL, Very high Performed By: #### 1 989-3 #### [facility] CLIA [id number] [address] [place] [address] [place] VLDL CHOLESTEROL, NF 17 mg/dL Normal <30 [facility] Comment on above: Order Comment: Speci men Type: BLOOD SPECIMEN Ordering Facility: [facility] Address: [address] [place] [address] Performed By: #### 1 989-3 #### [facility] CLIA [id number] [address] [place] [address] [place] Urate SerPl-mCncon 4 Urate [Mass/Vol] 5.3 mg/dL Normal 4.0-8.1 [facility] Comment on above: Order Comment: Speci men Type: BLOOD SPECIMEN Ordering Facility: [facility] Address: [address] [place] [address] Performed By: #### 1 989-3 #### [facility] CLIA [id number] [address] [place] [address] [place] Urinalysis complete panel (U )on 04-04-2024 Bacteria LM.HPF (Urine sed) [#/Area] Negative Normal Negative [facility] Comment on above: Order Comment: Speci men Type: BLOOD SPECIMEN Ordering Facility: [facility] Address: [address] [place] [address] Performed By: #### C OPPER #### [facility] CLIA [id number] [address] [place] [address] [place] Bilirubin Ql (U) Negative Normal Negative [facility] Comment on above: Order Comment: Speci men Type: BLOOD SPECIMEN Ordering Facility: [facility] Address: [address] [place] [address] Performed By: #### C OPPER #### [facility] CLIA [id number] [address] [place] [address] [place] Clarity (Unsp spec) Clear Normal Clear [facility] Comment on above: Order Comment: Speci men Type: BLOOD SPECIMEN Ordering Facility: [facility] Address: [address] [place] [address] Performed By: #### C OPPER #### [facility] CLIA [id number] [address] [place] [address] [place] Color (U) Yellow Normal Yellow [facility] Comment on above: Order Comment: Speci men Type: BLOOD SPECIMEN Ordering Facility: [facility] Address: [address] [place] [address] Performed By: #### C OPPER #### [facility] CLIA [id number] [address] [place] [address] [place] Epithelial cells LM.HPF (Urine sed) [#/Area] None Seen Normal [facility] Comment on above: Order Comment: Speci men Type: BLOOD SPECIMEN Ordering Facility: [facility] Address: [address] [place] [address] Performed By: #### C OPPER #### [facility] CLIA [id number] [address] [place] [address] [place] Glucose Test strip (U) [Mass/Vol] Negative Normal Negative [facility] Comment on above: Order Comment: Speci men Type: BLOOD SPECIMEN Ordering Facility: [facility] Address: [address] [place] [address] Performed By: #### C OPPER #### [facility] CLIA [id number] [address] [place], [place] [address] [place] Hemoglobin Ql (U) Negative Normal Negative [facility] Comment on above: Order Comment: Speci men Type: BLOOD SPECIMEN Ordering Facility: [facility] Address: [address] [place] [address] Performed By: #### C OPPER #### [facility] CLIA [id number] [address] [place] [address] [place] Hyaline casts (Urine sed) [#/Area] 4-10 /LPF Abnormal 0 /LPF [facility] Comment on above: Order Comment: Speci men Type: BLOOD SPECIMEN Ordering Facility: [facility] Address: [address] [place] [address] Performed By: #### C OPPER #### [facility] CLIA [id number] [address] [place] [address] [place] Ketones Ql (U) Negative Normal Negative [facility] Comment on above: Order Comment: Speci men Type: BLOOD SPECIMEN Ordering Facility: [facility] Address: [address] [place] [address] Performed By: #### C OPPER #### [facility] CLIA [id number] [address] [place] [address] [place] Leukocyte esterase Test strip Ql (U) 1+ Abnormal Negative [facility] Comment on above: Order Comment: Speci men Type: BLOOD SPECIMEN Ordering Facility: [facility] Address: [address] [place] [address] Performed By: #### C OPPER #### [facility] CLIA [id number] [address] [place] [address] [place] Nitrite Ql (U) Negative Normal Negative [facility] Comment on above: Order Comment: Speci men Type: BLOOD SPECIMEN Ordering Facility: [facility] Address: [address] [place] [address] Performed By: #### C OPPER #### [facility] CLIA [id number] [address] [place], [place] [address] [place] pH (U) 5.5 [pH] Normal <8.5 [facility] Comment on above: Order Comment: Speci men Type: BLOOD SPECIMEN Ordering Facility: [facility] Address: [address] [place] [address] Performed By: #### C OPPER #### [facility] CLIA [id number] [address] [place] [address] [place] Protein (U) [Mass/Vol] Negative Normal Negative [facility] Comment on above: Order Comment: Speci men Type: BLOOD SPECIMEN Ordering Facility: [facility] Address: [address] [place] [address] Performed By: #### C OPPER #### [facility] CLIA [id number] [address] [place] [address] [place] RBC LM.HPF (Urine sed) [#/Area] 0-2 /HPF Normal 0-2 /HPF [facility] Comment on above: Order Comment: Speci men Type: BLOOD SPECIMEN Ordering Facility: [facility] Address: [address] [place] [address] Performed By: #### C OPPER #### [facility] CLIA [id number] [address] [place] [address] [place] Specific gravity (U) [Rel density] 1.019 Normal 1.005-1.030 [facility] Comment on above: Order Comment: Speci men Type: BLOOD SPECIMEN Ordering Facility: [facility] Address: [address] [place] [address] Performed By: #### C OPPER #### [facility] CLIA [id number] [address] [place] [address] [place] Urobilinogen Ql (U) 0.2 EU/dL Normal 0.2-1.0 EU/dL [facility] Comment on above: Order Comment: Speci men Type: BLOOD SPECIMEN Ordering Facility: [facility] Address: [address] [place] [address] Performed By: #### C OPPER #### [facility] CLIA [id number] [address] [place] [address] [place] WBC LM.HPF (Urine sed) [#/Area] 0-5 /HPF Normal 0-5 /HPF [facility] Comment on above: Order Comment: Speci men Type: BLOOD SPECIMEN Ordering Facility: [facility] Address: [address] [place] [address] Performed By: #### C OPPER #### [facility] CLIA [id number] [address] [place] [address] [place] Vit B12 SerPl-ncon 024 Cobalamin (Vitamin B12) [Mass/Vol] 905 pg/mL Normal 232-1245 [facility] Comment on above: Order Comment: Speci men Type: BLOOD SPECIMEN Ordering Facility: [facility] Address: [address] [place] [address] Performed By: #### 2 284-8, 2885-2, 2132-9 #### [facility] CLIA [id number] [address] STATES OF [facility] CNPNon 04-01-2024 CNPN Telephone (FAMPWS) -- NAZARIO HUTTON ([id number]) 1950 Date Time Provider Department 04/01/24 GANESH WHITE [facility] During your visit today, we recorded [...] disorder [N42.9] 03/15/2021 Medication management [Z79.899] 03/15/2021 Financial Accounting Analyst's nodules [L28.1] 03/15/2021 Elevated PSA [R97.20] 03/17/2021 [...] Encounter Status:Closed by PINEDA STYLES on 04/01/24 [facility] CNOVon 03-29-2024 CNOV Office Visit (UCWSTR ) -- NAZARIO HUTTON ([id number]) 1950 M Date Time Provider Department 03/29/24 11:15 AM [facility] During your visit today, we recorded the [...] agreeable to this and will go to [place] [facility]. Offered ambulance transport-he refused. He appears stable to self-transport. Report sent via ER passport. Gardenia Villareal APRN.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 MANAGER Allergies As of Date: 03/29/2024 Noted Allergy [...] disorder [N42.9] 03/15/2021 Medication management [Z79.899] 03/15/2021 Financial Accounting Analyst's nodules [L28.1] 03/15/2021 Elevated PSA [R97.20] 03/17/2021 [...] Status:Closed by GARDENIA VILLAREAL on 03/29/24 Normal [facility] [place] [facility] Summary on 03-29-2024 Emergency Department Summary [facility] Medical Records Department [address] [place] [address] Emergency Department Summary 03/29/24 MR#: [id number] Acct: [id number] Name: NAZARIO HUTTON Rep #: [id number] : 1950 73 From: Luis Frank MD [...] in years. No exacerbating or alleviating factors. [facility] Medical History Essential hypertension Chest pain Anxiety Depression Myocardial infarct Chest pain Acute blood loss anemia Bloody diarrhea Coronary artery disease Atherosclerotic heart disease of saxman coronary artery without angina pectoris ST elevation [place] (STEMI) ( 11/29/21) Hyperlipidemia Hypertension Home Medications [...] disease Hypertension Myocardial infarction age 53 following FL. Surgical History S/P cataract extraction Presence of [...] nonlateralizing. C (more content not included)... Normal [facility] CREATININE [facility] 02-08-2024 Creatinine [Mass/Vol] 0.76 mg/dL Normal 0.73-1.22 [facility] Comment on above: Order Comment: Medina peck Type: BLOOD SPECIMEN Ordering Facility: [facility] Address: [address] [place] [address] Performed By: #### 1 989-3 #### [facility] CLIA [id number] [address] [place], [place] [address] [address] [place] Creatinine and Glomerular filtration rate.predicted panel (S/P/Bld) 95 mL/min/1.73m??? Normal >=60 [facility] Comment on above: Order Comment: Speci liv Type: BLOOD SPECIMEN Ordering Facility: [facility] Address: [address] [place] [address] Result Comment: Micaela mated Glomerular Filtration Rate [...] GFR. Performed By: #### 1 989-3 #### [facility] CLIA [id number] [address] [place] [address] [place] [address] Neck W contrast Tamara 01-21 * * *Final Report* * * DATE OF EXAM: Feb 08 2024 3:51PM [facility] 0024 - CTA NECK W IVCON / PROCEDURE REASON: Occlusion and stenosis of unspecified carotid artery * * * * Physician Interpretation * * * * EXAMINATION: CTA HEAD W IVCON, CTA NECK W IVCON HISTORY: Occlusion and stenosis of unspecified carotid artery - - - OtherCarotid stenosis - concern for such on MRA brain with rad recommending further e (accession [id number]), Carotid Stenosis (accession [id number]) - Carotid artery stenosis, Carotid stenosis - [...] Short segment mild narrowing of the LEFT PIPE OR STEAM FITTER FURNACE INSTALLER P2 segment No abrupt vessel occlusion, intraluminal filling defect, high-grade stenosis, or aneurysm in the posterior intracranial circulation. Opacified dural venous sinuses and major deep and superficial draining veins are patent. Welding Machine Operator Helper Arc (topogram) images: No additional findings. DIVISION OF RADIOLOGY Provider, [facility] - 02/08/2024 * * *Final Report* * * DATE OF EXAM: Feb 08 2024 3:51PM [facility] 0024 - CTA NECK W IVCON / PROCEDURE REASON: Occlusion and stenosis of unspecified carotid artery * * * * Physician Interpretation * * * * EXAMINATION: CTA HEAD W IVCON, CTA NECK W IVCON HISTORY: Occlusion and stenosis of unspecified carotid artery - - - OtherCarotid stenosis - concern for such on MRA brain with rad recommending further e (accession [id number]), Carotid Stenosis (accession [id number]) - Carotid artery stenosis, Carotid stenosis - [...] Short segment mild narrowing of the LEFT PIPE OR STEAM FITTER FURNACE INSTALLER P2 segment No abrupt vessel occlusion, intraluminal filling defect, high-grade stenosis, or aneurysm in the posterior intracranial circulation. Opacified dural venous sinuses and major deep and superficial draining veins are patent. Welding Machine Operator Helper Arc (topogram) images: No additional findings. IMPRESSION IMPRESSION: [...] between software and imaging review: Not Applicable. Developer Evangelist: DULCE Transcribe Date/Time: Feb 08 2024 3:55P Dictated by : CINDY DRAPER MD This examination was (more content not included)... [facility] CTA HEAD W IVCONon 4 CTA HEAD W IVCON * * *Final Report* * * DATE OF EXAM: Feb 08 2024 3:51PM [facility] 0022 - CTA HEAD W IVCON / PROCEDURE REASON: Occlusion and stenosis of unspecified carotid artery * * * * Physician Interpretation * * * * EXAMINATION: CTA HEAD W IVCON, CTA NECK W IVCON HISTORY: Occlusion and stenosis of unspecified carotid artery - - - OtherCarotid stenosis - concern for such on MRA brain with rad recommending further e (accession [id number]), Carotid Stenosis (accession [id number]) - Carotid artery stenosis, Carotid stenosis - [...] Short segment mild narrowing of the LEFT PIPE OR STEAM FITTER FURNACE INSTALLER P2 segment No abrupt vessel occlusion, intraluminal filling defect, high-grade stenosis, or aneurysm in the posterior intracranial circulation. Opacified dural venous sinuses and major deep and superficial draining veins are patent. Welding Machine Operator Helper Arc (topogram) images: No additional findings. IMPRESSION: No [...] between software and imaging review: Not Applicable. Developer Evangelist: DULCE Transcribe Date/Time: Feb 08 2024 3:55P Dictated by : CINDY DRAPER MD This examination was interpreted and the report reviewed and electronically signed by: CINDY DRAPER MD on Feb 08 2024 4:16PM EST [id number] Normal [facility] CTA Head Arteries W contrast Tamara 02-08-2024 * * *Final Report* * * DATE OF EXAM: Feb 08 2024 3:51PM [facility] 0022 - CTA HEAD W IVCON / PROCEDURE REASON: Occlusion and stenosis of unspecified carotid artery * * * * Physician Interpretation * * * * EXAMINATION: CTA HEAD W IVCON, CTA NECK W IVCON HISTORY: Occlusion and stenosis of unspecified carotid artery - - - OtherCarotid stenosis - concern for such on MRA brain with rad recommending further e (accession [id number]), Carotid Stenosis (accession [id number]) - Carotid artery stenosis, Carotid stenosis - [...] Short segment mild narrowing of the LEFT PIPE OR STEAM FITTER FURNACE INSTALLER P2 segment No abrupt vessel occlusion, intraluminal filling defect, high-grade stenosis, or aneurysm in the posterior intracranial circulation. Opacified dural venous sinuses and major deep and superficial draining veins are patent. Welding Machine Operator Helper Arc (topogram) images: No additional findings. DIVISION OF RADIOLOGY Provider, [facility] - 02/08/2024 * * *Final Report* * * DATE OF EXAM: Feb 08 2024 3:51PM [facility] 0022 - CTA HEAD W IVCON / PROCEDURE REASON: Occlusion and stenosis of unspecified carotid artery * * * * Physician Interpretation * * * * EXAMINATION: CTA HEAD W IVCON, CTA NECK W IVCON HISTORY: Occlusion and stenosis of unspecified carotid artery - - - OtherCarotid stenosis - concern for such on MRA brain with rad recommending further e (accession [id number]), Carotid Stenosis (accession [id number]) - Carotid artery stenosis, Carotid stenosis - [...] Short segment mild narrowing of the LEFT PIPE OR STEAM FITTER FURNACE INSTALLER P2 segment No abrupt vessel occlusion, intraluminal filling defect, high-grade stenosis, or aneurysm in the posterior intracranial circulation. Opacified dural venous sinuses and major deep and superficial draining veins are patent. Welding Machine Operator Helper Arc (topogram) images: No additional findings. IMPRESSION IMPRESSION: [...] between software and imaging review: Not Applicable. Developer Evangelist: DULCE Transcribe Date/Time: Feb 08 2024 3:55P Dictated by : CINDY DRAPER MD This examination was (more content not included)... [facility] CTA NECK W IVCONon CTA NECK W IVCON * * *Final Report* * * DATE OF EXAM: Feb 08 2024 3:51PM [facility] 0024 - CTA NECK W IVCON / PROCEDURE REASON: Occlusion and stenosis of unspecified carotid artery * * * * Physician Interpretation * * * * EXAMINATION: CTA HEAD W IVCON, CTA NECK W IVCON HISTORY: Occlusion and stenosis of unspecified carotid artery - - - OtherCarotid stenosis - concern for such on MRA brain with rad recommending further e (accession [id number]), Carotid Stenosis (accession [id number]) - Carotid artery stenosis, Carotid stenosis - [...] Short segment mild narrowing of the LEFT PIPE OR STEAM FITTER FURNACE INSTALLER P2 segment No abrupt vessel occlusion, intraluminal filling defect, high-grade stenosis, or aneurysm in the posterior intracranial circulation. Opacified dural venous sinuses and major deep and superficial draining veins are patent. Welding Machine Operator Helper Arc (topogram) images: No additional findings. IMPRESSION: No [...] between software and imaging review: Not Applicable. Developer Evangelist: PSCB Transcribe Date/Time: Feb 08 2024 3:55P Dictated by : CINDY DRAPER MD This examination was interpreted and the report reviewed and electronically signed by: CINDY DRAPER MD on Feb 08 2024 4:16PM EST [id number] Normal [facility] No Panel Informationon 02-07 IMPRESSION: No hemodynamically [...] between software and imaging review: Not Applicable. Developer Evangelist: DULCE Transcribe Date/Time: Feb 08 2024 3:55P Dictated by : CINDY DRAPER MD This examination was interpreted and the report reviewed and electronically signed by: CINDY DRAPER MD on Feb 08 2024 4:16PM [facility] DIVISION OF RADIOLOGY Radiology Study observation (narrative) [facility] No Panel InformationOrdered By: Ccf Provider on 02-08-2024 [facility] CNPNon 02-06-2024 [facility] Telephone (JOSE JUAN) -- NAZARIO HUTTON ([id number]) 1950 Date Time Provider Department 02/06/24 PATRIA [...] unspecified laterality [I65.29] Order(s):CTA HEAD W IVCON [5087323] Order #: [id number] FUTURE CTA NECK W IVCON [1096330] Order #: [id number] FUTURE CREATININE BLD [SQCRET] Order #: [id number] FUTURE CTA HEAD W IVCON [3825200] Order #: [id number] FUTURE CTA NECK W IVCON [7318118] Order #: [id number] FUTURE CREATININE BLD [SQCRET] Order #: [id number] FUTURE CONSULT TO VASCULAR SURGERY [9041] Order #: [id number]: 1 FUTURE Prescriptions as of 02/09/2024 - [...] Essential hy (more content not included)... Normal [facility] MR Brain WO contraston 02-05 * * [...] gradient echo images. Intracranial and extracranial 3D wzbk-uy-wmaqmr MRA with post-processing performed at the modality [...] dominant. DIVISION OF RADIOLOGY Provider, Shelley Manzano [facility] - 02/06/2024 * * *Final Report* [...] gradient echo images. Intracranial and extracranial 3D rzcg-gx-oroomy MRA with post-processing performed at the modality [...] be communicated with the ordering provider via [employer] staff message or phone message by [facility] [employer] within 2 business days of report finalization. --END OF FINDING-- Developer Evangelist: DULCE Transcribe Date/Time: Feb 06 2024 10:35A Dictated by : ILANA LAWRENCE MD This examination was interpreted and the report reviewed and electronically signed by: ILANA LAWRENCE MD on Feb 06 2024 10:43AM [facility] MRA BRAIN WO IVCONon 02-05- 024 MRA BRAIN WO IVCON * * *Final Report* * * DATE OF EXAM: Feb 06 2024 10:00AM [facility] 0272 - MRA BRAIN WO IVCON / PROCEDURE REASON: Other symptoms and signs involving the nervous system * * * * Physician Interpretation * * * * EXAMINATION: MRA BRAIN WO IVCON, MRA CAROTID WO IVCON, MRI BRAIN WO IVCON CLINICAL HISTORY: Vertebrobasilar insufficiency TECHNIQUE: Routine noncontrast MRI protocol including diffusion and gradient echo images. Intracranial and extracranial 3D xkgu-mg-jdmnjq MRA with post-processing performed at the modality [...] be communicated with the ordering provider via [employer] staff message or phone message by [facility] [employer] [facility] within 2 business days of report finalization. --END OF FINDING-- Developer Evangelist: DULCE Transcribe Date/Time: Feb 06 2024 10:35A Dictated by : ILANA LAWRENCE MD This examination was interpreted and the report reviewed and electronically signed by: ILANA LAWRENCE MD on Feb 06 2024 10:43AM EST [id number] ACTIONABLE Invalid Interpretation Code [facility] MRA CAROTID WO IVCONon 02-05 MRA CAROTID [...] gradient echo images. Intracranial and extracranial 3D nzrg-by-bycham MRA with post-processing performed at the modality [...] be communicated with the ordering provider via [employer] staff message or phone message by [facility] [employer] within 2 business days of report finalization. --END OF FINDING-- Developer Evangelist: DULCE Transcribe Date/Time: Feb 06 2024 10:35A Dictated by : ILANA LAWRENCE MD This examination was interpreted and the report reviewed and electronically signed by: ILANA LAWRENCE MD on Feb 06 2024 10:43AM EST [id number] ACTIONABLE Invalid Interpretation Code [facility] MRA Head vessels WO contrast on 02-06-2024 * * *Final Report* * * DATE OF EXAM: Feb 06 2024 10:00AM [facility] 0272 - MRA BRAIN WO IVCON / PROCEDURE REASON: Other symptoms and signs involving the nervous system * * * * Physician Interpretation * * * * EXAMINATION: MRA BRAIN WO IVCON, MRA CAROTID WO IVCON, MRI BRAIN WO IVCON CLINICAL HISTORY: Vertebrobasilar insufficiency TECHNIQUE: Routine noncontrast MRI protocol including diffusion and gradient echo images. Intracranial and extracranial 3D rkjq-jh-ruggwk MRA with post-processing performed at the modality [...] Dominance: Left dominant. DIVISION OF RADIOLOGY Provider, [facility] - 02/06/2024 * * *Final Report* * * DATE OF EXAM: Feb 06 2024 10:00AM [facility] 0272 - MRA BRAIN WO IVCON / PROCEDURE REASON: Other symptoms and signs involving the nervous system * * * * Physician Interpretation * * * * EXAMINATION: MRA BRAIN WO IVCON, MRA CAROTID WO IVCON, MRI BRAIN WO IVCON CLINICAL HISTORY: Vertebrobasilar insufficiency TECHNIQUE: Routine noncontrast MRI protocol including diffusion and gradient echo images. Intracranial and extracranial 3D mmlp-ma-uamglq MRA with post-processing performed at the modality [...] be communicated with the ordering provider via [employer] staff message or phone message by [facility] [employer] [facility] within 2 business days of report finalization. --END OF FINDING-- Developer Evangelist: DULCE Transcribe Date/Time: Feb 06 2024 10:35A Dictated by : ILANA LAWRENCE MD This examination was interpreted and the report reviewed and electronically signed by: ILANA LAWRENCE MD on Feb 06 2024 10:43AM EST [facility] MRA Neck vessels WO contrast on [...] gradient echo images. Intracranial and extracranial 3D lyke-pt-qjmkbz MRA with post-processing performed at the modality [...] dominant. DIVISION OF RADIOLOGY Provider, Shelley Manzano [facility] - 02/06/2024 * * *Final Report* [...] gradient echo images. Intracranial and extracranial 3D usdb-ku-loaqpc MRA with post-processing performed at the modality [...] be communicated with the ordering provider via [employer] staff message or phone message by [facility] [employer] [facility] within 2 business days of report finalization. --END OF FINDING-- Developer Evangelist: DULCE Transcribe Date/Time: Feb 06 2024 10:35A Dictated by : ILANA LAWRENCE MD This examination was interpreted and the report reviewed and electronically signed by: ILANA LAWRENCE MD on Feb 06 2024 10:43AM [facility] MRI BRAIN WO IVCONon 16-2 024 MRI BRAIN WO IVCON * * *Final Report* * * DATE OF EXAM: Feb 06 2024 10:00AM [facility] 0294 - MRI BRAIN WO IVCON / PROCEDURE REASON: Other symptoms and signs involving the nervous system * * * * Physician Interpretation * * * * EXAMINATION: MRA BRAIN WO IVCON, MRA CAROTID WO IVCON, MRI BRAIN WO IVCON CLINICAL HISTORY: Vertebrobasilar insufficiency TECHNIQUE: Routine noncontrast MRI protocol including diffusion and gradient echo images. Intracranial and extracranial 3D vvbs-zl-rrvpxn MRA with post-processing performed at the modality [...] be communicated with the ordering provider via [employer] staff message or phone message by [facility] [employer] [facility] within 2 business days of report finalization. --END OF FINDING-- Developer Evangelist: DULCE Transcribe Date/Time: Feb 06 2024 10:35A Dictated by : ILANA LAWRENCE MD This examination was interpreted and the report reviewed and electronically signed by: ILANA LAWRENCE MD on Feb 06 2024 10:43AM EST [id number] ACTIONABLE Invalid Interpretation Code [facility] Panel InformationOrdered By: Cc Provider on 02-06-2024 Interpretation and review of laboratory results Abnormal [facility] Radiology Result ACTIONABLE Abnormal [facility] Comment on above: This report [...] contact your provider for the next steps. [facility] No Panel Informationon 02-05 IMPRESSION: No [...] be communicated with the ordering provider via [employer] staff message or phone message by [facility] Support [facility] within 2 business days of report finalization. --END OF FINDING-- Developer Evangelist: DULCE Transcribe Date/Time: Feb 06 2024 10:35A Dictated by : ILANA LAWRENCE MD This examination was interpreted and the report reviewed and electronically signed by: ILANA LAWRENCE MD on Feb 06 2024 10:43AM EST DIVISION OF RADIOLOGY Radiology Study observation (narrative) [facility] Baljit 01-08-2024 [facility] Telephone ([place]) -- NAZARIO HUTTON ([id number]) 1950 M Date Time Provider Department 01/08/24 [...] answer brief message to contact a nurse. [employer] logon . SUSHIL Andrews Gillian, OCCA 01/17/2024 [...] disorder [N42.9] 03/15/2021 Medication management [Z79.899] 03/15/2021 Financial Accounting Analyst's nodules [L28.1] 03/15/2021 Elevated PSA [R97.20] 03/17/2021 [...] Status:Closed by BHAVANI TURK on 01/17/24 Normal [facility] CBC W Auto Differential pane l (Bld)on 10-17-2023 Basophils (Bld) [#/Vol] 0.05 10*3/uL <0.11 k/uL [facility] Basophils/100 WBC (Bld) 0.7 % [facility] Differential cell count method Nom (Bld) Auto [facility] Eosinophils (Bld) [#/Vol] 0.62 10*3/uL High <0.46 k/uL [facility] Eosinophils/100 WBC (Bld) 8.2 % [facility] Erythrocyte distribution width (RBC) [Ratio] 13.3 % 11.5 - 15.0 % [facility] Hematocrit (Bld) [Volume fraction] 42.4 % 39.0 - 51.0 % [facility] Hemoglobin (Bld) [Mass/Vol] 14.1 g/dL 13.0 - 17.0 g/dL [facility] Immature granulocytes (Bld) [#/Vol] <0.10 k/uL [facility] Immature granulocytes/100 WBC (Bld) 0.3 % [facility] Lymphocytes (Bld) [#/Vol] 0.83 10*3/uL Low 1.00 - 4.00 k/uL [facility] Lymphocytes/100 WBC (Bld) 11.0 % [facility] MCH (RBC) [Entitic mass] 34.3 pg High 26.0 - 34.0 pg [facility] MCHC (RBC) [Mass/Vol] 33.3 g/dL 30.5 - 36.0 g/dL [facility] MCV (RBC) [Entitic vol] 103.2 fL High 80.0 - 100.0 fL [facility] Monocytes (Bld) [#/Vol] 1.00 10*3/uL High <0.87 k/uL [facility] Monocytes/100 WBC (Bld) 13.2 % [facility] Neutrophils (Bld) [#/Vol] 5.05 10*3/uL 1.45 - 7.50 k/uL [facility] Neutrophils/100 WBC (Bld) 66.6 % [facility] Nucleated RBC (Bld) [#/Vol] <0.01 k/uL [facility] Nucleated RBC/100 WBC (Bld) [Ratio] 0.0 /100 WBC [facility] Platelet mean volume (Bld) [Entitic vol] 10.6 fL 9.0 - 12.7 fL [facility] Platelets (Bld) [#/Vol] 224 10*3/uL 150 - 400 k/uL [facility] RBC (Bld) [#/Vol] 4.11 10*6/uL Low 4.20 - 6.0 0 m/uL [facility] WBC (Bld) [#/Vol] 7.57 10*3/uL 3.70 - 11. 00 k/uL [facility] Urinalysis complete panel (U )on 10-17-2023 Bacteria LM.HPF (Urine sed) [#/Area] Negative Negative /HPF [facility] Bilirubin Ql (U) Negative Negative [facility] Clarity (Unsp spec) Clear Clear [facility] Color (U) Yellow Yellow [facility] Epithelial cells LM.HPF (Urine sed) [#/Area] None Seen [facility] Glucose Test strip (U) [Mass/Vol] Negative Negative [facility] Hemoglobin Ql (U) Negative Negative [facility] Hyaline casts (Urine sed) [#/Area] 0 /[LPF] 0 /LPF [facility] Ketones Ql (U) Negative Negative [facility] Leukocyte esterase Test strip Ql (U) 1+ Abnormal Negative [facility] Nitrite Ql (U) Negative Negative [facility] pH (U) 6.0 [pH] <8.5 [facility] Protein (U) [Mass/Vol] Negative Negative [facility] RBC LM.HPF (Urine sed) [#/Area] 0-2 /HPF 0-2 /HPF [facility] Specific gravity (U) [Rel density] 1.007 1.005 - 1.030 [facility] Urobilinogen Ql (U) 0.2 EU/dL 0.2-1.0 EU/dL [facility] WBC LM.HPF (Urine sed) [#/Area] 0-5 /HPF 0-5 /HPF [facility] Absolute lymphocyte countOrd ered By: Estefany Thrasher on 09-05-2023 Lymphocytes Auto (Unsp spec) [#/Vol] 0.60 10*3/uL 0.83-4.51 [facility] Automated lymphocyte count a s percentage of total leukocytesOrdered By: Estefany Thrasher on 09-05-2023 Lymphocytes/100 WBC Auto (Unsp spec) 8.2 % 19-41 [facility] Basophil percentageOrdered B y: Estefany Thrasher on 09-05-2023 Basophils/100 WBC (Bld) 0.5 % 0-1 [facility] Chloride [Moles/Vol] 110 mmol/L 98-[address] [facility] [address] [facility] Eosinophils/100 WBC (Bld) 7.1 % 0-5 [facility] Glucose [Mass/Vol] 97 mg/dL 74-106 [place] [facility] Hemoglobin (Bld) [Mass/Vol] 14.3 g/dL 13.0-16.5 [facility] Monocytes/100 WBC (Bld) 12.3 % 0-10 [facility] Neutrophils (Bld) [#/Vol] 5.2 10*3/uL 2.0-7.7 [facility] Neutrophils/100 WBC (Bld) 71.5 % 47-70 [facility] Potassium [Moles/Vol] 4.6 mmol/L 3.5-5.1 [facility] Sodium [Moles/Vol] 140 mmol/L 136-145 [facility] WBC (Bld) [#/Vol] 7.3 10*3/uL 4.4-11.0 [facility] Determination of erythrocyte mean corpuscular volume (MCV)Ordered By: Estefany Thrasher on 09-05-2023 MCV (RBC) [Entitic vol] 103.5 fL 80-94 [facility] Erythrocyte distribution wid th ratioOrdered By: Estefany Thrasher on 09-05-2023 Erythrocyte distribution width (RBC) [Ratio] 12.9 % 11.6-14.6 [facility] Erythrocyte distribution wid th standard deviationOrdered By: Estefany Thrasher on 09-05-2023 Erythrocyte distribution width (RBC) [Entitic vol] 48.9 fL 35.1-43.9 [facility] Hematocrit Auto (Bld) [Volum e fraction]Ordered By: Estefany Thrasher on 09-05-2023 Hematocrit (Bld) [Volume fraction] 43.8 % 40-54 [facility] Immature granulocytes/100 WB C Auto (Bld)Ordered By: Estefany Thrasher on 09-05-2023 Immature granulocytes/100 WBC (Bld) 0.400 % 0.0-0.9 [facility] Comment on above: IG% - Immature Granu locytes (promyelocytes, myelocytes and metamyelocytes) > 1% indicates that a LEFT SHIFT is Present. Laboratory - Chemistry and C hemistry - challengeOrdered By: Estefany Thrasher on 09-05-2023 CO2 [Moles/Vol] 26.0 mmol/L 21.0-32.0 [facility] Natriuretic peptide B (Bld) [Mass/Vol] 140.8 pg/mL 0-100 [facility] Urea nitrogen/Creatinine [Mass ratio] 13.7 mg/mg 10-20 [facility] Laboratory - Hematology and Cell countsOrdered By: Estefany Thrasher on 09-05-2023 MCH (RBC) [Entitic mass] 33.8 pg 27.0-32.0 [facility] MCHC (RBC) [Mass/Vol] 32.6 g/dL 32-36 [facility] Nucleated RBC/100 WBC (Bld) [Ratio] 0 % 0-5 [facility] [facility] Platelet mean volume (Bld) [Entitic vol] 10.5 fL 6.2-12.0 [facility] Platelets (Bld) [#/Vol] 214 10*3/uL 150-450 [facility] No Panel InformationOrdered By: Estefany Thrasher on 09-05-2023 Estimated GFR (MDRD) Amer 110 mL/min >60 [facility] Comment on above: GFR Calc Estimated GFR (MDRD) Non-Af Amer 91 mL/min >60 [facility] Comment on above: Non- GFR Calc RBC Auto (Bld) [#/Vol]Ordere d By: Estefany Thrasher on 09-05-2023 RBC (Bld) [#/Vol] 4.23 10*6/uL 4.6-6.2 [facility] [place] Serum or plasma calcium reid urement (mass/volume)Ordered By: Estefany Thrasher on 09-05-2023 Calcium [Mass/Vol] 9.7 mg/dL 8.5-10.1 [facility] Serum or plasma creatinine m easurement (mass/volume)Ordered By: Estefany Thrasher on 09-05-2023 Creatinine [Mass/Vol] 0.87 mg/dL 0.70-1.30 [facility] Comment on above: The validity of the calculated GFR & GFRAA in patients over 70 years has not been determined. Clinical correlation is essential. Serum or plasma urea nitroge n measurement (mass/volume)Ordered By: Estefany Thrasher on 09-05-2023 Urea nitrogen [Mass/Vol] 12 mg/dL 02-07 [facility] Thin prep Papanicolaou smear with manual screeningOrdered By: Estefany Thrasher on 09-05-2023 Thin prep Papanicolaou smear with manual screening 4 5-15 [facility] CNPNon 08-10-2023 CNPN Telephone ([facility]) -- NAZARIO HUTTON ( ) 1950 Date Time Provider Department 08/10/23 VALERIANO BEASLEY [facility] During your visit today, we recorded the following information about you: Valeriano Beasley MD 08/10/2023 11:14 AM Signed Let patient know his lumbar MRI shows significant changes contributing to his pain. I want to send him to the New neurologist at [facility] Dr. José Miguel Valverde. Order placed. [...] [N28.9] Order(s):CONSULT TO NEUROSURGERY [[id number]] Order #: [id number]: 1 FUTURE US KIDNEY/BLADDER [[id number]] Order #: [id number] FUTURE Prescriptions as of 08/10/2023 - ezetimibe [...] disorder [N42.9] 03/15/2021 Medication management [Z79.899] 03/15/2021 Financial Accounting Analyst's nodules [L28.1] 03/15/2021 Elevated PSA [R97.20] 03/17/2021 [...] Status:Closed by PINEDA STYLES on 08/10/23 Normal [facility] FOLATE SERUMon 04-21-2023 Folate [Mass/Vol] 18.2 ng/mL >4.7 ng/mL [facility] T4 FREE/FREE THYROXon 2022 Free T4 [Mass/Vol] 1.0 ng/dL 0.9 - 1.7 ng/dL [facility] TSH BLDon 04-21-2023 TSH Qn 3.260 m[IU]/L 0.270 - 4.200 mIU/L [facility] VITAMIN B12 BLOODon 04-21-20 Cobalamin (Vitamin B12) [Mass/Vol] 244 pg/mL 232 - 1,245 pg/mL [facility] CBC W/DIFF/PLT (EXTERNAL LAB RALF)on 12-13-2022 BASO ABSOLUTE [facility] Basophils/100 WBC (Bld) 0.9 % [facility] EOS ABSOLUTE [facility] Eosinophils/100 WBC (Bld) 7.6 % [facility] Erythrocyte distribution width (RBC) [Ratio] 15.4 % 12.3 - 15.4 % [facility] Hematocrit (Bld) [Volume fraction] 46.7 % 37.5 - 51.0 % [facility] Hemoglobin (Bld) [Mass/Vol] 15 g/dL 12.6 - 17.7 g/dL [facility] Immature Gran % [facility] IMMATURE GRANS ABSOLUTE [facility] Lymphocytes (Bld) [#/Vol] 0.49 10*3/uL Abnormal 0.7 - 3.1 k/uL [facility] Lymphocytes/100 WBC (Bld) 7.3 % [facility] MCH 31.5 Pg 26.6 - 33 Pg [facility] MCHC (RBC) [Mass/Vol] 32.1 g/dL 31.5 - 35.7 g/dL [facility] MCV (RBC) [Entitic vol] 98.1 fL Abnormal 79 - 97 fL [facility] MONOCYTES ABSOLUTE [facility] Monocytes/100 WBC (Bld) 11.4 % [facility] NEUTROPHILS ABSOLUTE 4.9 k/uL 1.4 - 7 .0 k/uL [facility] Neutrophils/100 WBC (Bld) 72.5 % [facility] Platelets (Bld) [#/Vol] 205 10*3/uL 150 - 379 k/uL [facility] RBC (Bld) [#/Vol] 4.76 10*6/uL 4.14 - 5.8 0 M/uL [facility] WBC (Bld) [#/Vol] 6.7 10*3/uL 3.4 - 10.8 K/uL [facility] FERRITIN BLDon 12-13-2022 Ferritin [Mass/Vol] 64 ng/mL 26 - 388 [facility] IRON PANEL (OUTSIDE)on 12-13 Iron [Mass/Vol] 133 ug/dL 65 - 175 [facility] TIBC 40.1 15 - 55 [facility] Absolute lymphocyte countOrd ered By: Xochilt Casanova on 12-09-2022 Lymphocytes Auto (Unsp spec) [#/Vol] 0.49 10*3/uL 0.83-4.51 [facility] Basophil percentageOrdered B y: Xochilt Casanova on 12-09-2022 Basophils/100 WBC (Bld) 0.9 % 0-1 [facility] Eosinophils/100 WBC (Bld) 7.6 % 0-5 [facility] Neutrophils (Bld) [#/Vol] 4.9 10*3/uL 2.0-7.7 [facility] Neutrophils/100 WBC (Bld) 72.5 % 47-70 [facility] WBC (Bld) [#/Vol] 6.7 10*3/uL 4.4-11.0 [facility] Blood erythrocytes count (nu mber/volume)Ordered By: Xochilt Casanova on 12-09-2022 RBC (Bld) [#/Vol] 4.76 10*6/uL 4.6-6.2 [facility] [place] Blood hemoglobin measurement (mass/volume)Ordered By: Xochilt Casanova on 12-09-2022 Hemoglobin (Bld) [Mass/Vol] 15.0 g/dL 13.0-16.5 [facility] Blood lymphocytes/100 leukoc ytesOrdered By: Xochilt Casanova on 12-09-2022 Lymphocytes/100 WBC (Bld) 7.3 % 19-41 [facility] Blood monocytes/100 leukocyt esOrdered By: Xochilt Casanova on 12-09-2022 Monocytes/100 WBC (Bld) 11.4 % 0-10 [facility] Blood platelet mean volumeOr dered By: Xochilt Casanova on 12-09-2022 Platelet mean volume (Bld) [Entitic vol] 9.5 fL 6.2-12.0 [facility] Determination of erythrocyte mean corpuscular volume (MCV)Ordered By: Xochilt Casanova on 12-09-2022 MCV (RBC) [Entitic vol] 98.1 fL 80-94 [facility] Hematocrit Auto (Bld) [Volum e fraction]Ordered By: Xochilt Casanova on 12-09-2022 Hematocrit (Bld) [Volume fraction] 46.7 % 40-54 [facility] Iron measurement (mass/mass) Ordered By: Xochilt Casanova on 12-09-2022 Iron (Unsp spec) [Mass/Mass] 133 ug/dL 65-175 [facility] Laboratory - Hematology and Cell countsOrdered By: Xochilt Casanova on 12-09-2022 Erythrocyte distribution width (RBC) [Entitic vol] 55.2 fL 35.1-43.9 [facility] Erythrocyte distribution width (RBC) [Ratio] 15.4 % 11.6-14.6 [facility] Immature granulocytes/100 WBC (Bld) 0.300 % 0.0-0.9 [facility] Comment on above: IG% - Immature Granu locytes (promyelocytes, myelocytes and metamyelocytes) > 1% indicates that a LEFT SHIFT is Present. MCH (RBC) [Entitic mass] 31.5 pg 27.0-32.0 [facility] Nucleated RBC/100 WBC (Bld) [Ratio] 0 % 0-5 [facility] MCHC Auto (RBC) [Mass/Vol]Or dered By: Xochilt Casanova on 12-09-2022 MCHC (RBC) [Mass/Vol] 32.1 g/dL 32-36 [facility] No Panel InformationOrdered By: Xochilt Casanova on 12-09-2022 Total Iron Binding Capacity 332 ug/dL 250-450 [facility] Platelets bldOrdered By: Andria Casanova on 12-09-2022 Platelets (Bld) [#/Vol] 205 10*3/uL 150-450 [facility] Serum or plasma ferritin steve surement (mass/volume)Ordered By: Xochilt Casanova on 12-09-2022 Ferritin [Mass/Vol] 64 ng/mL 26-388 [facility] [place] Serum or plasma iron saturat ion measurement (mass fraction)Ordered By: Xochilt Casanova on 12-09-2022 Iron saturation [Mass fraction] 40.1 % 15.0-55.0 [facility] 09-15-2022 CNPN Telephone ([facility]) -- NAZARIO HUTTON ( ) [...] walking. Patient needs labs faxed to his administrative assistant receptionist, Dr. Franklin Francois at [place] phone # [phone] Ganesh White MA 09/15/2022 2:34 PM Signed Left message for patient to contact office. Ganesh White MA Faxed information to cardio. LINA Gandara LPN 09/16/2022 2:37 PM Signed Patient returned call and went over results, notes from Dr Beasley with understanding. Aware lab results were faxed to [employer] office. Allergies As of Date: 09/15/2022 Noted [...] disorder [N42.9] 03/15/2021 Medication management [Z79.899] 03/15/2021 Financial Accounting Analyst's nodules [L28.1] 03/15/2021 Elevated PSA [R97.20] 03/17/2021 [...] by TEODORO DYE LPN on 09/16/22 Normal [facility] Comprehensive metabolic 2000 panelon 09-15-2022 Albumin [Mass/Vol] 3.4 g/dL Low 3.9 - 4.9 g/dL [facility] ALP [Catalytic activity/Vol] 104 U/L 38 - 113 U/L [facility] ALT [Catalytic activity/Vol] 11 U/L 10 - 54 U/L [facility] Anion gap [Moles/Vol] 7 mmol/L Low 9 - 18 mmol/L [facility] AST [Catalytic activity/Vol] 15 U/L 14 - 40 U/L [facility] Bilirubin [Mass/Vol] 0.4 mg/dL 0.2 - 1 .3 mg/dL [facility] Calcium [Mass/Vol] 8.6 mg/dL 8.5 - 10. 2 mg/dL [facility] Chloride [Moles/Vol] 107 mmol/L High 97 - 10 5 mmol/L [facility] CO2 [Moles/Vol] 25 mmol/L 22 - 30 mmol/L [facility] Creatinine [Mass/Vol] 0.81 mg/dL 0.73 - 1.22 mg/dL [facility] Estimated Glomerular Filtration Rate 94 mL/min/1.73m >=60 mL/min/1.73m [facility] Glucose [Mass/Vol] 98 mg/dL 74 - 99 mg/dL [facility] Potassium [Moles/Vol] 4.2 mmol/L 3.7 - 5.1 mmol/L [facility] Protein [Mass/Vol] 6.3 g/dL 6.3 - 8.0 g/dL [facility] Sodium [Moles/Vol] 139 mmol/L 136 - 144 mmol/L [facility] Urea nitrogen [Mass/Vol] 6 mg/dL Low 9 - 24 mg/dL [facility] Iron and Iron binding capaci ty panelon 09-15-2022 Iron [Mass/Vol] 23 ug/dL Low 41 - 186 ug/dL [facility] Iron binding capacity [Mass/Vol] 216 ug/dL Low 232 - 386 ug/dL [facility] Iron/TIBC [Molar ratio] 10.6 % Low 15.0 - 57.0 % [facility] LIPID PANEL, NONFASTINGon Cholesterol [Mass/Vol] 117 mg/dL <200 mg/dL [facility] HDL Cholesterol, Nonfasting 35 mg/dL Low >39 mg/dL [facility] LDL Cholesterol, Nonfasting 71 mg/dL <100 mg/dL [facility] LDL/HDL Ratio, Nonfasting 2.03 mg/dL <2.54 mg/dL [facility] Non HDL Cholesterol, Nonfasting 82 mg/dL <130 mg/dL [facility] Total Chol/HDL Ratio, Nonfasting 3.34 mg/dL <5.10 mg/dL [facility] Triglycerides, Nonfasting 55 mg/dL <150 mg/dL [facility] VLDL Cholesterol, Nonfasting 11 mg/dL <30 mg/dL [facility] CBC W Auto Differential pane l (Bld)on 09-14-2022 Basophils (Bld) [#/Vol] 0.04 10*3/uL <0.11 k/uL [facility] Basophils/100 WBC (Bld) 0.3 % [facility] Differential cell count method Nom (Bld) Auto [facility] Eosinophils (Bld) [#/Vol] 0.41 10*3/uL <0.46 k/uL [facility] Eosinophils/100 WBC (Bld) 3.6 % [facility] Erythrocyte distribution width (RBC) [Ratio] 16.9 % High 11.5 - 15.0 % [facility] Hematocrit (Bld) [Volume fraction] 29.3 % Low 39.0 - 51.0 % [facility] Hemoglobin (Bld) [Mass/Vol] 9.2 g/dL Low 13.0 - 17.0 g/dL [facility] Immature granulocytes (Bld) [#/Vol] 0.05 10*3/uL <0.10 k/uL [facility] Immature granulocytes/100 WBC (Bld) 0.4 % [facility] Lymphocytes (Bld) [#/Vol] 0.83 10*3/uL Low 1.00 - 4.00 k/uL [facility] Lymphocytes/100 WBC (Bld) 7.2 % [facility] MCH (RBC) [Entitic mass] 33.0 pg 26.0 - 34.0 pg [facility] MCHC (RBC) [Mass/Vol] 31.4 g/dL 30.5 - 36.0 g/dL [facility] MCV (RBC) [Entitic vol] 105.0 fL High 80.0 - 100.0 fL [facility] Monocytes (Bld) [#/Vol] 0.91 10*3/uL High <0.87 k/uL [facility] Monocytes/100 WBC (Bld) 7.9 % [facility] Neutrophils (Bld) [#/Vol] 9.27 10*3/uL High 1.45 - 7.50 k/uL [facility] Neutrophils/100 WBC (Bld) 80.6 % [facility] Nucleated RBC (Bld) [#/Vol] <0.01 k/uL [facility] Nucleated RBC/100 WBC (Bld) [Ratio] 0.0 /100 WBC [facility] Platelet mean volume (Bld) [Entitic vol] 10.8 fL 9.0 - 12.7 fL [facility] Platelets (Bld) [#/Vol] 323 10*3/uL 150 - 400 k/uL [facility] RBC (Bld) [#/Vol] 2.79 10*6/uL Low 4.20 - 6.0 0 m/uL [facility] WBC (Bld) [#/Vol] 11.51 10*3/uL High 3.70 - 11 .00 k/uL [facility] Absolute lymphocyte countOrd ered By: Dr. Crespo on 09-09-2022 Lymphocytes Auto (Unsp spec) [#/Vol] 0.55 10*3/uL 0.83-4.51 [facility] Basophil percentageOrdered B y: Dr. Crespo on 09-09-2022 Basophils/100 WBC (Bld) 0.5 % 0-1 [facility] Eosinophils/100 WBC (Bld) 8.0 % 0-5 [facility] Neutrophils (Bld) [#/Vol] 3.7 10*3/uL 2.0-7.7 [facility] Neutrophils/100 WBC (Bld) 67.3 % 47-70 [facility] WBC (Bld) [#/Vol] 5.5 10*3/uL 4.4-11.0 [facility] Blood erythrocytes count (nu mber/volume)Ordered By: Dr. Crespo on 09-09-2022 RBC (Bld) [#/Vol] 2.34 10*6/uL 4.6-6.2 [facility] [place] Blood hemoglobin measurement (mass/volume)Ordered By: Dr. Crespo on 09-09-2022 Hemoglobin (Bld) [Mass/Vol] 7.6 g/dL 13.0-16.5 [facility] Blood lymphocytes/100 leukoc ytesOrdered By: Dr. Crespo on 09-09-2022 Lymphocytes/100 WBC (Bld) 10.0 % 19-41 [facility] Blood manual differential co mment interpretation (narrative result)Ordered By: Dr. Crespo on 09-09-2022 Manual differential comment Kamaljit (Bld) [Interp] SCANNED [facility] Comment on above: LYMPHOPENIA NOTED Blood monocytes/100 leukocyt esOrdered By: Dr. Crespo on 09-09-2022 Monocytes/100 WBC (Bld) 13.8 % 0-10 [facility] Blood platelet mean volumeOr dered By: Dr. Crespo on 09-09-2022 Platelet mean volume (Bld) [Entitic vol] 9.9 fL 6.2-12.0 [facility] Determination of erythrocyte mean corpuscular volume (MCV)Ordered By: Dr. Crespo on 09-09-2022 MCV (RBC) [Entitic vol] 104.3 fL 80-94 [facility] Hematocrit Auto (Bld) [Volum e fraction]Ordered By: Dr. Crespo on 09-09-2022 Hematocrit (Bld) [Volume fraction] 24.4 % 40-54 [facility] Laboratory - Hematology and Cell countsOrdered By: Dr. Crespo on 09-09-2022 Anisocytosis Ql (Bld) 1+ [facility] Erythrocyte distribution width (RBC) [Entitic vol] 67.8 fL 35.1-43.9 [facility] Erythrocyte distribution width (RBC) [Ratio] 17.7 % 11.6-14.6 [facility] Immature granulocytes/100 WBC (Bld) 0.400 % 0.0-0.9 [facility] Comment on above: IG% - Immature Granu locytes (promyelocytes, myelocytes and metamyelocytes) > 1% indicates that a LEFT SHIFT is Present. MCH (RBC) [Entitic mass] 32.5 pg 27.0-32.0 [facility] Nucleated RBC/100 WBC (Bld) [Ratio] 0 % 0-5 [facility] MCHC Auto (RBC) [Mass/Vol]Or dered By: Dr. Crespo on 09-09-2022 MCHC (RBC) [Mass/Vol] 31.1 g/dL 32-36 [facility] Macrocytes detectionOrdered By: Dr. Crespo on 09-09-2022 Macrocytes Ql (Bld) 1+ [facility] [place] No Panel InformationOrdered By: Dr. Hagen on 09-09-2022 D-Dimer Quantitative (PE/DVT) 3.21 FEU/ug/m 0.27-0.49 [facility] Comment on above: D-Dimer ELEVATED (>0 .49): Additional studies and clinicalassessments are indicated to conclude diagnosis of:Deep Vein Thrombosis (DVT) or Pulmonary Embolism (PE)CRITICAL VALUE VERIFIED. CALLED TO [id number] Leslie Proctor.RESULTS READ BACK BY SAME . Platelets bldOrdered By: Dr. Crespo on 09-09-2022 Platelets (Bld) [#/Vol] 212 10*3/uL 150-450 [facility] Basophil percentageOrdered B y: Dr. Crespo on 09-08-2022 Chloride [Moles/Vol] 116 mmol/L 98-107 [facility] Glucose [Mass/Vol] 103 mg/dL 74-106 [facility] Comment on above: Fasting Glucose resu lt from 100 to 125 mg/dL suggests IMPAIRED HOMEOSTASIS per A.D.A. criteria. Potassium [Moles/Vol] 3.7 mmol/L 3.5-5.1 [facility] Sodium [Moles/Vol] 145 mmol/L 136-145 [facility] Laboratory - Chemistry and C hemistry - challengeOrdered By: Dr. Crespo on 09-08-2022 CO2 [Moles/Vol] 26.0 mmol/L 21.0-32.0 [facility] Urea nitrogen/Creatinine [Mass ratio] 3.1 mg/mg 10-20 [facility] No Panel InformationOrdered By: Dr. Crespo on 09-08-2022 Estimated Creatinine Clearance Calc 69.96 ml/min [facility] Estimated GFR (MDRD) Amer 155 mL/min >60 [facility] Comment on above: GFR Calc Estimated GFR (MDRD) Non-Af Amer 128 mL/min >60 [facility] Comment on above: Non- GFR Calc Serum or plasma calcium reid urement (mass/volume)Ordered By: Dr. Crespo on 09-08-2022 Calcium [Mass/Vol] 8.2 mg/dL 8.5-10.1 [facility] Serum or plasma creatinine m easurement (mass/volume)Ordered By: Dr. Crespo on 09-08-2022 Creatinine [Mass/Vol] 0.65 mg/dL 0.70-1.30 [facility] Comment on above: The validity of the calculated GFR & GFRAA in patients over 70 years has not been determined. Clinical correlation is essential. Serum or plasma urea nitroge n measurement (mass/volume)Ordered By: Dr. Crespo on 09-08-2022 Urea nitrogen [Mass/Vol] 2 mg/dL 7-18 [facility] Thin prep Papanicolaou smear with manual screeningOrdered By: Dr. rCespo on 09-08-2022 Thin prep Papanicolaou smear with manual screening 3 5-15 [facility] Thin prep Papanicolaou smear with manual screeningOrdered By: Dr. Crespo on 09-06-2022 Thin prep Papanicolaou smear with manual screening 1+ [facility] Laboratory - CoagulationOrde red By: Dr. Corbin on 09-04-2022 aPTT Coag (Bld) [Time] 40.0 s 24.1-36.2 [facility] Basophil percentageOrdered B y: Dr. Ramos on 09-03-2022 Bilirubin [Mass/Vol] 0.70 mg/dL 0.20-1.00 [facility] Comment on above: For patients on eltr ombopag therapy, use of Dimension [facility]oca TBIL is not recommended. Protein [Mass/Vol] 5.6 g/dL 6.4-8.2 [facility] EP PanelOrdered By: Dr. Tiffanie paez on 09-03-2022 Gastrointestinal pathogens panel DEMARIO+probe (Stl) [facility] Laboratory - Chemistry and C hemistry - challengeOrdered By: Dr. Ramos on 09-03-2022 ALP [Catalytic activity/Vol] 72 U/L 45-117 [facility] ALT [Catalytic activity/Vol] 16 U/L 16-61 [facility] Globulin (S) [Mass/Vol] 3.0 g/dL 2.2-4.2 [facility] No Panel InformationOrdered By: Dr. Corbin on 09-03-2022 Troponin I High Sensitivity 3730 pg/mL 3.0-78.0 [facility] Comment on above: Critical Result(s) C alled at: 21:16:59 09/03/2022 by: Nadine Platt. Results read back by same. Please Note: New Test Units and Gender Specific Reference Ranges. For more information see Policy Stat Procedure Roca High Sensitivity Troponin (TNIH) and attachments. Serum or plasma albumin reid urement (mass/volume)Ordered By: Dr. Ramos on 09-03-2022 Albumin [Mass/Vol] 2.6 g/dL 3.2-5.0 [facility] Serum or plasma albumin/glob ulin mass ratioOrdered By: Dr. Ramos on 09-03-2022 Albumin/Globulin [Mass ratio] 0.9 {ratio} 0.9-2.4 [facility] Stool lactoferrin detection by immunoassayOrdered By: Dr. Holguin on 09-03-2022 Lactoferrin IA Ql (Stl) [facility] Thin prep Papanicolaou smear with manual screeningOrdered By: Dr. Ramos on 09-03-2022 Thin prep Papanicolaou smear with manual screening 20 U/L 15-37 [facility] Whole blood hemoglobin A1c/t otal hemoglobin ratio (mass fraction)Ordered By: Dr. Ramos on 09-03-2022 HbA1c (Bld) [Mass fraction] % 3.8-5.6 [facility] Comment on above: Normal < 5.7 % Predi abetic 5.7 - 6.4 % Diabetic >or= 6.5 % Please note range changes. Basophil percentageOrdered B y: Dr. Ramos on 09-02-2022 Basophil percentage 3.7 mg/dL 2.5-4.9 [facility] [place] Direct bilirubinOrdered By: Dr. Segal on 09-02-2022 Bilirubin.direct [Mass/Vol] 0.18 mg/dL 0.00-0.30 [facility] INR in Blood by Coagulation assayOrdered By: Dr. Segal on 09-02-2022 INR Coag (Bld) [Relative time] 1.2 {INR} [facility] Laboratory - Chemistry and C hemistry - challengeOrdered By: Dr. Ramos on 09-02-2022 Magnesium [Mass/Vol] 2.2 mg/dL 1.6-2.6 [facility] Laboratory - CoagulationOrde red By: Dr. Segal on 09-02-2022 PT Coag (PPP) [Time] 14.4 s 11.7-14.9 [facility] Serum procalcitonin measurem entOrdered By: Dr. Ramos on 09-02-2022 Procalcitonin [Mass/Vol] 0.18 ng/mL 0.00-0.09 [facility] Comment on above: A procalcitonin (PCT [...] Basophil, Absolute 0.0 10 3/mcL Normal 0.0-0.3 [facility] ([place]) Comment on above: Performed By: #### G , BMP #### [address] [address] Basophils/100 WBC (Bld) 0.7 % Normal 0.0-2.5 [facility] ([place]) Comment on above: Performed By: #### G FR, BMP #### [address] [address] Eosinophil, Absolute 0.6 10 3/mcL Normal 0.0-0.7 [facility] ([place]) Comment on above: Performed By: #### G , BMP #### [address] [address] Eosinophils/100 WBC (Bld) 7.7 % High 0.0-6.0 [facility] ([place] Comment on above: Performed By: #### G FR, BMP #### [address] [address] Lymphocyte, Absolute 0.9 10 3/mcL Normal 0.9-4.3 [facility] ([place] Comment on above: Performed By: #### G FR, BMP #### [address] [address] Lymphocytes/100 WBC (Bld) 11.6 % Low 20.0-40.0 [facility] ([place]) Comment on above: Performed By: #### G FR, BMP #### [address] [address] Monocyte, Absolute 1.0 10 3/mcL Normal 0.1-1.4 [facility] ([place]) Comment on above: Performed By: #### G FR, BMP #### [address] [address] Monocytes/100 WBC (Bld) 13.5 % High 2.0-13.0 [facility] ([place] Comment on above: Performed By: #### G FR, BMP #### [address] [address] Neutrophils/100 WBC (Bld) 66.5 % Normal 50.0-75.0 [facility] ([place] Comment on above: Performed By: #### G FR, BMP #### [address] [address] .GFRon 01-27-2022 GFR >60 Normal [facility] ([place]) Comment on above: Result Comment: GFR Population [...] Performed By: #### Fannie HARPER, BMP #### [address] [address] GFR Non- >60 Normal [facility] ([place]) Comment on above: Result Comment: GFR Population [...] Performed By: #### Fannie HARPER, BMP #### [place] [address] .MDWon 01-27-2022 Monocyte Distribution Width Not performed Normal 0.00-20.00 [facility] ([place]) Comment on above: Result Comment: MDW testing performed only on adult ER patients between the ages of 18-89 years. Performed By: #### Fannie HARPER, BMP #### [place] [address] .NEUABSon 01-27-2022 Neutrophil, Absolute 5.0 10 3/mcL Normal 2.3-8.1 [facility] ([place]) Comment on above: Performed By: #### Fannie HARPER, BMP #### [place] [address] BMPon 01-27-2022 BUN/Creatinine Ratio 16.9 ratio Normal 10.0-22.0 [facility] ([place]) Comment on above: Performed By: #### Fannie HARPER, BMP #### [place] [address] Calcium [Mass/Vol] 10.0 mg/dL Normal 8.7-10.4 [facility] ([place]) Comment on above: Performed By: #### Fannie HARPER, BMP #### [address] [address] Chloride [Moles/Vol] 108 mmol/L Normal 98-110 [facility] ([place]) Comment on above: Performed By: #### Fannie HARPER, BMP #### [address] [address] CO2 [Moles/Vol] 28 mmol/L Normal 22-32 [facility] ([place]) Comment on above: Performed By: #### Fannie HARPER, BMP #### [address] [address] Creatinine [Mass/Vol] 0.89 mg/dL Normal 0.60-1.40 [facility] ([place]) Comment on above: Performed By: #### Fannie HARPER, BMP #### [address] [address] Electrolyte Balance 6.0 mEq/L Normal 4.0-15.0 [facility] ([place]) Comment on above: Performed By: #### Fannie HARPER, BMP #### [address] [address] Glucose [Mass/Vol] 106 mg/dL Normal 82-115 [facility] ([place]) Comment on above: Performed By: #### Fannie HARPER, BMP #### [address] [address] [address] Potassium [Moles/Vol] 4.3 mmol/L Normal 3.5-5.0 [facility] ([place]) Comment on above: Performed By: #### Fannie HARPER, BMP #### [address] [address] Sodium [Moles/Vol] 142 mmol/L Normal 136-145 [facility] ([place]) Comment on above: Performed By: #### Fannie HARPER, BMP #### [address] [address] Urea nitrogen [Mass/Vol] 15.0 mg/dL Normal 8.0-22.0 [facility] ([place]) Comment on above: Performed By: #### Fannie HARPER, BMP #### [address] [address] CBCon 07-07-2022 Erythrocyte distribution width (RBC) [Ratio] 13.8 % Normal 11.5-15.5 [facility] ([place]) Comment on above: Performed By: #### Fannie HARPER, BMP #### [place] [address] Hematocrit (Bld) [Volume fraction] 41.2 % Normal 40.0-52.0 [facility] ([place] Comment on above: Performed By: #### Fannie HARPER, BMP #### [place] [address] Hgb 14.1 G/dL Normal 13.0-17.5 [facility] ([place] Comment on above: Performed By: #### Fannie HARPER, BMP #### [place] [address] MCH (RBC) [Entitic mass] 34.8 pg High 27.0-33.0 [facility] ([place] Comment on above: Performed By: #### Fannie HARPER, BMP #### [place] [address] MCHC 34.3 G/dL Normal 32.0-36.0 [facility] ([place] Comment on above: Performed By: #### Fannie HARPER, BMP #### [place] [address] MCV (RBC) [Entitic vol] 101.7 fL High 81.0-100.0 [facility] ([place] Comment on above: Performed By: #### Fannie HARPER, BMP #### [place] [address] Platelet 236 10 3/mcL Normal 150-450 [facility] ([place] Comment on above: Performed By: #### Fannie HARPER, BMP #### [place] [id number] Platelet mean volume (Bld) [Entitic vol] 8.1 fL Normal 6.4-10.5 [facility] ([place] Comment on above: Performed By: #### Fannie HARPER, BMP #### [place] [id number] RBC 4.05 10 6/mcL Low 4.50-6.00 [facility] ([place] Comment on above: Performed By: #### G , SANDRA #### [address] [address] WBC 7.4 10 3/mcL Normal 4.5-10.8 [facility] ([place] Comment on above: Performed By: #### G , SANDRA #### [address] [address] LABORATORYOrdered By: SYSTEM SYSTEM on 01-27-2022 Basophils [...] Chemistry and C hemistry - challengeOrdered By: [employer] SYSTEM on 11-30-2021 CO2 [Moles/Vol] 26 mmol/L Invalid Interpretation Code 22 - 32 mEq/L ADM SS Sodium [Moles/Vol] 138 mmol/L Invalid Interpretation Code 136 - 145 mEq/L ADM SS Laboratory - Hematology and Cell countsOrdered By: [employer] SYSTEM on 11-30-2021 Basophils (Bld) [#/Vol] 0.10 [...] 6.00 10^6/mcL AH Remisol SS LABORATORYOrdered By: [employer] SYSTEM on 11-29-2021 Albumin BCP dye [Mass/Vol] [...] [degF] Dr. Valeriano Beasley MD Work Phone: 6(665)545-280584 [place] [address] 01-23-2025 21:38-0400 Diastolic blood pressure 87 mm[Hg] Dr. Valeriano Beasley MD Work Phone: 8(217)932-039284 [place] [address] 01-23-2025 21:38-0400 Heart rate 70 /min Dr. Valeriano Beasley MD Work Phone: 5(658)542-033284 [place] [address] 01-23-2025 21:38-0400 Respiratory rate 16 /min Dr. Valeriano Beasley MD Work Phone: 8(457)817-467584 [place] [address] 01-23-2025 21:38-0400 SaO2% (BldA) [Mass fraction] 97 % Dr. Valeriano Beasley MD Work Phone: 1(939)776-863684 [place] [address] 01-23-2025 21:38-0400 Systolic blood pressure 155 mm[Hg] Dr. Valeriano Beasley MD Work Phone: 0(189)383-742784 [place] [address] 01-23-2025 19:30-0400 Body height 177.[address] Valeriano Beasley MD Work Phone: 5(405)145-014584 [place] [address] 01-23-2025 19:30-0400 Body mass index (BMI) [Ratio] 29.9 kg/m2 Dr. Valeriano Beasley MD Work Phone: 5(062)076-184584 [place] [address] 01-23-2025 19:30-0400 Body weight 94.[address] Valeriano Beasley MD Work Phone: 4(590)314-847984 [place] [address] 01-01-2025 09:50-0400 Body mass index (BMI) [Ratio] 31.13 kg/m2 Suzanna Dawson PA-C Work Phone: [facility] 01-01-2025 09:50-0400 Body temperature 97.81 [degF] Suzanna Dawson PA-C Work Phone: [facility] 01-01-2025 09:50-0400 Body weight 97.52 kg Suzanna Dawson PA-C Work Phone: [facility] 01-01-2025 09:50-0400 Diastolic blood pressure 80 mm[Hg] Suzanna Dawson PA-C Work Phone: [facility] 01-01-2025 09:50-0400 Heart rate 72 /min Suzanna Dawson PA-C Work Phone: [facility] 01-01-2025 09:50-0400 Respiratory rate 18 /min Suzanna Dawson PA-C Work Phone: [facility] 01-01-2025 09:50-0400 SaO2% (BldA) [Mass fraction] 96 % Suzanna Dawson PA-C Work Phone: [facility] 01-01-2025 09:50-0400 Systolic blood pressure 122 mm[Hg] Suzanna Dawson PA-C Work Phone: [facility] 12-30-2024 09:35-0400 Body height [address] Valeriano Beasley MD Work Phone: [facility] 12-30-2024 09:35-0400 Body weight 95.[address] Valeriano Beasley MD Work Phone: [facility] 12-30-2024 08:00-0400 Body temperature 98.1 [degF] Dr. Valeriano Beasley MD Work Phone: [facility] 12-30-2024 08:00-0400 Diastolic blood pressure 85 mm[Hg] Dr. Valeriano Beasley MD Work Phone: [facility] 12-30-2024 08:00-0400 Heart rate 73 /min Dr. Valeriano Beasley MD Work Phone: [facility] 12-30-2024 08:00-0400 Respiratory rate 18 /min Dr. Valeriano Beasley MD Work Phone: [facility] 12-30-2024 08:00-0400 SaO2% (BldA) [Mass fraction] 95 % Dr. Valeriano Beasley MD Work Phone: 9(483)824-422806 [place] [address] 12-30-2024 08:00-0400 Systolic blood pressure 159 mm[Hg] Dr. Valeriano Beasley MD Work Phone: 3(094)612-118584 [place] [address] 12-30-2024 05:56-0400 Body mass index (BMI) [Ratio] 30.2 kg/m2 Dr. Valeriano Beasley MD Work Phone: 1(264)558-147984 [place] [address] 12-29-2024 11:00-0400 Inhaled oxygen flow rate 2 L/min Dr. Valeriano Beasley MD Work Phone: 7(175)323-904784 [place] [address] 12-29-2024 09:00-0400 Inhaled oxygen concentration 30 % Dr. Valeriano Beasley MD Work Phone: 1(587)070-591584 [place] [address] 12-27-2024 15:15-0400 Diastolic blood pressure 67 mm[Hg] Dr. Valeriano Beasley MD Work Phone: 7(991)461-262884 [place] [address] 12-27-2024 15:15-0400 Heart rate 60 /min Dr. Valeriano Beasley MD Work Phone: 0(252)310-318484 [place] [address] 12-27-2024 15:15-0400 Respiratory rate 14 /min Dr. Valeriano Beasley MD Work Phone: 3(597)669-935684 [place] [address] 12-27-2024 15:15-0400 SaO2% (BldA) [Mass fraction] 97 % Dr. Valeriano Beasley MD Work Phone: 7(806)071-295884 [place] [address] 12-27-2024 15:15-0400 Systolic blood pressure 100 mm[Hg] Dr. Valeriano Beasley MD Work Phone: 6(654)078-487284 [place] [address] 12-27-2024 14:58-0400 Body temperature 99 [degF] Dr. Valeriano Beasley MD Work Phone: 6(545)111-882384 [place] [address] 12-27-2024 13:42-0400 Inhaled oxygen concentration 35 % Dr. Valeriano Beasley MD Work Phone: 1(590)068-314584 [place] [address] 12-27-2024 13:13-0400 Body height 177.[address] Valeriano Beasley MD Work Phone: 5(023)427-539484 [place] [address] 12-27-2024 13:13-0400 Body mass index (BMI) [Ratio] 30 kg/m2 Dr. Valeriano Beasley MD Work Phone: [facility] 12-27-2024 13:13-0400 Body weight 95.[address] Valeriano Beasley MD Work Phone: [facility] 12-23-2024 14:11-0400 Body mass index (BMI) [Ratio] 30.14 kg/m2 Patria Khanna Jr., MD Work Phone: [facility] 12-23-2024 [id number] Body weight 94.44 kg Patria Khanna Jr., MD Work Phone: [facility] 12-23-2024 14:11-0400 Diastolic blood pressure 82 mm[Hg] Patria Khanna Jr., MD Work Phone: [facility] 12-23-2024 14:11-0400 Heart rate 68 /min Patria Khanna Jr., MD Work Phone: [facility] 12-23-2024 14:11-0400 Respiratory rate 18 /min Patria Khanna Jr., MD Work Phone: [facility] 12-23-2024 14:11-0400 SaO2% (BldA) [Mass fraction] 94 % Patria Khanna Jr., MD Work Phone: [facility] 12-23-2024 14:11-0400 Systolic blood pressure 128 mm[Hg] Patria Khanna Jr., MD Work Phone: [facility] 11-05-2024 07:36-0400 Body mass index (BMI) [Ratio] 29.8 kg/m2 Dr. Valeriano Beasley MD Work Phone: [facility] 11-05-2024 07:36-0400 Body weight 94.[address] Vaelriano Beasley MD Work Phone: [facility] 11-05-2024 07:36-0400 Diastolic blood pressure 72 mm[Hg] Dr. Valeriano Beasley MD Work Phone: [facility] 11-05-2024 07:36-0400 Heart rate 70 /min Dr. Valeriano Beasley MD Work Phone: [facility] 11-05-2024 07:36-0400 Respiratory rate 18 /min Dr. Valeriano Beasley MD Work Phone: [facility] 11-05-2024 07:36-0400 SaO2% (BldA) [Mass fraction] 95 % Dr. Valeriano Beasley MD Work Phone: [facility] 11-05-2024 07:36-0400 Systolic blood pressure 113 mm[Hg] Dr. Valeriano Beasley MD Work Phone: [facility] 11-01-2024 10:56-0400 Body mass index (BMI) [Ratio] 29.68 kg/m2 Ni Sauceda TELEVISION SERVICE ENGINEER.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 MANAGER Work Phone: [facility] 11-01-2024 10:56-0400 Body weight 93 kg Ni Sauceda TELEVISION SERVICE ENGINEER.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 MANAGER Work Phone: [facility] 11-01-2024 10:56-0400 Diastolic blood pressure 73 mm[Hg] Ni Sauceda APRN.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 MANAGER Work Phone: [facility] 11-01-2024 10:56-0400 Systolic blood pressure 129 mm[Hg] Ni Sauceda APRN.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 MANAGER Work Phone: [facility] 10-23-2024 13:09-0400 Body mass index (BMI) [Ratio] 29.97 kg/m2 Stephanie Masci DO Work Phone: [facility] 10-23-2024 13:09-0400 Body temperature 98.6 [degF] Stephanie Masci DO Work Phone: [facility] 10-23-2024 13:09-0400 Body weight 93.89 kg Stephanie Masci DO Work Phone: [facility] 10-23-2024 13:09-0400 Diastolic blood pressure 76 mm[Hg] Stephanie Renettai DO Work Phone: [facility] 10-23-2024 13:09-0400 Heart rate 83 /min Stephanie Masci DO Work Phone: [facility] 10-23-2024 13:09-0400 SaO2% (BldA) [Mass fraction] 97 % Stephanie Masci DO Work Phone: [facility] 10-23-2024 13:09-0400 Systolic blood pressure 126 mm[Hg] Stephanie Masci DO Work Phone: [facility] 09-25-2024 14:07-0500 Body height 177 cm Stephanie Masci DO Work Phone: [facility] 09-25-2024 14:07-0500 Body mass index (BMI) [Ratio] 30.55 kg/m2 Stephanie Masci DO Work Phone: [facility] 09-25-2024 14:07-0500 Body temperature 98.8 [degF] Stephanie Masci DO Work Phone: [facility] 09-25-2024 14:07-0500 Body weight 95.71 kg Stephanie Masci DO Work Phone: [facility] 09-25-2024 14:07-0500 Diastolic blood pressure 83 mm[Hg] Stephanie Masci DO Work Phone: [facility] 09-25-2024 14:07-0500 Heart rate 79 /min Stephanie Masci DO Work Phone: [facility] 09-25-2024 14:07-0500 SaO2% (BldA) [Mass fraction] 96 % Stephanie Masci DO Work Phone: [facility] 09-25-2024 14:07-0500 Systolic blood pressure 134 mm[Hg] Stephanie Masci DO Work Phone: [facility] 09-19-2024 14:11-0500 Body height 177.[address] Valeriano Beasley MD Work Phone: [facility] 09-19-2024 14:11-0500 Body mass index (BMI) [Ratio] 29.9 kg/m2 Dr. Valeriano Beasley MD Work Phone: [facility] 09-19-2024 14:11-0500 Body weight 94.[address] Valeriano Beasley MD Work Phone: 1(850)996-209006 [place] [address] 09-19-2024 14:11-0500 Diastolic blood pressure 70 mm[Hg] Dr. Valeriano Beasley MD Work Phone: 4(598)317-457806 [place] [address] 09-19-2024 14:11-0500 Heart rate 63 /min Dr. Valeriano Beasley MD Work Phone: 4(516)947-267706 [place] [address] 09-19-2024 14:11-0500 SaO2% (BldA) [Mass fraction] 97 % Dr. Valeriano Beasley MD Work Phone: 9(904)093-474606 [place] [address] 09-19-2024 14:11-0500 Systolic blood pressure 130 mm[Hg] Dr. Valeriano Beasley MD Work Phone: 5(601)578-227006 [place] [address] 08-30-2024 15:08-0500 Body mass index (BMI) [Ratio] 30.57 kg/m2 Patria Khanna Jr., MD Work Phone: 8(409)522-165201 [place] [address] 08-30-2024 15:08-0500 Body weight 93.08 kg Patria Khanna Jr., MD Work Phone: [facility] 08-30-2024 15:08-0500 Diastolic blood pressure 84 mm[Hg] Patria Khanna Jr., MD Work Phone: [facility] 08-30-2024 15:08-0500 Heart rate 64 /min Patria Khanna Jr., MD Work Phone: [facility] 08-30-2024 15:08-0500 SaO2% (BldA) [Mass fraction] 95 % Patria Khanna Jr., MD Work Phone: [facility] 08-30-2024 15:08-0500 Systolic blood pressure 145 mm[Hg] Patria Khanna Jr., MD Work Phone: [facility] 08-19-2024 13:14-0500 Body mass index (BMI) [Ratio] 30.71 kg/m2 Amudha Pazhanisamy DO Work Phone: [facility] 08-19-2024 13:14-0500 Body weight 93.5 kg Amudha Pazhanisamy DO Work Phone: [facility] 08-19-2024 13:14-0500 Diastolic blood pressure 61 mm[Hg] Amudha Pazhanisamy DO Work Phone: [facility] 08-19-2024 13:14-0500 Heart rate 55 /min Amudha Pazhanisamy DO Work Phone: [facility] 08-19-2024 13:14-0500 SaO2% (BldA) [Mass fraction] 97 % Amudha Pazhanisamy DO Work Phone: [facility] 08-19-2024 13:14-0500 Systolic blood pressure 95 mm[Hg] Amudha Pazhanisamy DO Work Phone: [facility] 07-31-2024 19:01-0500 Body mass index (BMI) [Ratio] 31.13 kg/m2 Valeriano Beasley MD Work Phone: [facility] 07-31-2024 19:01-0500 Body weight 94.8 kg Valeriano Beasley MD Work Phone: [facility] 07-31-2024 19:01-0500 Diastolic blood pressure 74 mm[Hg] Valeriano Beasley MD Work Phone: [facility] 07-31-2024 19:01-0500 Heart rate 68 /min Valeriano Beasley MD Work Phone: [facility] 07-31-2024 19:01-0500 Respiratory rate 16 /min Valeriano Beasley MD Work Phone: [facility] 07-31-2024 19:01-0500 Systolic blood pressure 126 mm[Hg] Valeriano Beasley MD Work Phone: [facility] 07-18-2024 14:16-0500 Body temperature 98.5 [degF] Dr. Valeriano Beasley MD Work Phone: 9(020)670-352906 [place] [address] 07-18-2024 14:16-0500 Diastolic blood pressure 79 mm[Hg] Dr. Valeriano Beasley MD Work Phone: 9(017)608-039984 [place] [address] 07-18-2024 14:16-0500 Heart rate 73 /min Dr. Valeriano Beasley MD Work Phone: 1(638)570-910084 [place] [address] 07-18-2024 14:16-0500 Respiratory rate 19 /min Dr. Valeriano Beasley MD Work Phone: 9(898)487-415284 [place] [address] 07-18-2024 14:16-0500 SaO2% (BldA) [Mass fraction] 96 % Dr. Valeriano Beasley MD Work Phone: 0(350)155-293484 [place] [address] 07-18-2024 14:16-0500 Systolic blood pressure 155 mm[Hg] Dr. Valeriano Beasley MD Work Phone: 5(682)483-260484 [place] [address] 07-18-2024 10:16-0500 Body mass index (BMI) [Ratio] 31.2 kg/m2 Dr. Valeriano Beasley MD Work Phone: 0(512)774-219684 [place] [address] 07-18-2024 10:16-0500 Body weight 98.[address] Valeriano Beasley MD Work Phone: 7(065)034-094184 [place] [address] 05-29-2024 12:54-0500 Body mass index (BMI) [Ratio] 30.54 kg/m2 Suzanna HERNANDEZ-C Work Phone: 0(535)203-258601 [place] [address] 05-29-2024 12:54-0500 Body temperature 97.2 [degF] Suzanna Dawson PA-C Work Phone: 1(771)886-223801 [place] [address] 05-29-2024 12:54-0500 Body weight 92.99 kg Suzanna HERNANDEZ-C Work Phone: [facility] 05-29-2024 12:54-0500 Diastolic blood pressure 56 mm[Hg] Suzanna Dawson PA-C Work Phone: 9(115)508-514201 [place] [address] 05-29-2024 12:54-0500 Heart rate 66 /min Suzanna Dawson PA-C Work Phone: [facility] 05-29-2024 12:54-0500 Respiratory rate 18 /min Suzanna Dawson PA-C Work Phone: [facility] 05-29-2024 12:54-0500 SaO2% (BldA) [Mass fraction] 95 % Suzanna Dawson PA-C Work Phone: [facility] 05-29-2024 12:54-0500 Systolic blood pressure 120 mm[Hg] Suzanna Dawson PA-C Work Phone: [facility] 05-01-2024 13:00-0400 Body height 174.5 cm Suzanna Dawson PA-C Work Phone: [facility] 05-01-2024 13:00-0400 Body mass index (BMI) [Ratio] 29.35 kg/m2 Suzanna Dawson PA-C Work Phone: [facility] 05-01-2024 13:00-0400 Body temperature 97.5 [degF] Suzanna Dawson PA-C Work Phone: [facility] 05-01-2024 13:00-0400 Body weight 89.36 kg Suzanna Dawson PA-C Work Phone: [facility] 05-01-2024 13:00-0400 Diastolic blood pressure 62 mm[Hg] Suzanna Dawson PA-C Work Phone: [facility] 05-01-2024 13:00-0400 Heart rate 77 /min Suzanna Dawson PA-C Work Phone: [facility] 05-01-2024 13:00-0400 Respiratory rate 18 /min Suzanna Dawson PA-C Work Phone: [facility] 05-01-2024 13:00-0400 SaO2% (BldA) [Mass fraction] 96 % Suzanna Dawson PA-C Work Phone: [facility] 05-01-2024 13:00-0400 Systolic blood pressure 100 mm[Hg] Suzanna Dawson PA-C Work Phone: [facility] 04-04-2024 11:42-0400 Body mass index (BMI) [Ratio] 31.02 kg/m2 Ni Sauceda TELEVISION SERVICE ENGINEER.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 MANAGER Work Phone: [facility] 04-04-2024 11:42-0400 Body weight 92.53 kg Ni Sauceda TELEVISION SERVICE ENGINEER.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 MANAGER Work Phone: [facility] 04-04-2024 11:42-0400 Diastolic blood pressure 84 mm[Hg] Ni Sauceda TELEVISION SERVICE ENGINEER.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 MANAGER Work Phone: [facility] 04-04-2024 11:42-0400 Heart rate 58 /min Ni Sauceda TELEVISION SERVICE ENGINEER.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 MANAGER Work Phone: [facility] 04-04-2024 11:42-0400 Respiratory rate 14 /min Ni Sauceda TELEVISION SERVICE ENGINEER.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 MANAGER Work Phone: [facility] 04-04-2024 11:42-0400 Systolic blood pressure 155 mm[Hg] Ni Sauceda TELEVISION SERVICE ENGINEER.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 MANAGER Work Phone: [facility] 01-01-2024 16:56-0400 Diastolic blood pressure 80 mm[Hg] Patria Khanna Jr., MD Work Phone: [facility] Comment on above: LT arm adult cuff sitting 01-01-2024 16:56-0400 Systolic blood pressure 142 mm[Hg] Patria Khanna Jr., MD Work Phone: [facility] Comment on above: LT arm adult cuff sitting 01-01-2024 15:40-0400 Body mass index (BMI) [Ratio] 31.38 kg/m2 Patria Khanna Jr., MD Work Phone: [facility] 01-01-2024 15:40-0400 Body weight 93.62 kg Patria Khanna Jr., MD Work Phone: [facility] 01-01-2024 15:40-0400 Heart rate 76 /min Patria Khanna Jr., MD Work Phone: [facility] 01-01-2024 15:40-0400 Respiratory rate 16 /min Patria Khanna Jr., MD Work Phone: [facility] 01-01-2024 15:40-0400 SaO2% (BldA) [Mass fraction] 96 % Patria Khanna Jr., MD Work Phone: [facility] 09-05-2023 10:46-0500 Body height 177.[address] Valeriano Beasley Work Phone: [facility] 09-05-2023 10:46-0500 Body mass index (BMI) [Ratio] 29.9 kg/m2 Dr. Valeriano Beasley Work Phone: 4(771)714-418406 [place] [address] 09-05-2023 10:46-0500 Body weight 94.[address] Valeriano Beasley Work Phone: 5(069)834-058606 [place] [address] 09-05-2023 10:46-0500 Diastolic blood pressure 86 mm[Hg] Dr. Valeriano Beasley Work Phone: 6(879)901-462006 [place] [address] 09-05-2023 10:46-0500 Heart rate 64 /min Dr. Valeriano Beasley Work Phone: [facility] 09-05-2023 10:46-0500 Respiratory rate 18 /min Dr. Valeriano Beasley Work Phone: [facility] 09-05-2023 10:46-0500 SaO2% (BldA) [Mass fraction] 95 % Dr. Valeriano Beasley Work Phone: [facility] 09-05-2023 10:46-0500 Systolic blood pressure 134 mm[Hg] Dr. Valeriano Beasley Work Phone: [facility] 09-01-2023 10:41-0500 Body mass index (BMI) [Ratio] 29.6 kg/m2 Dr. Valeriano Beasley Work Phone: [facility] 09-01-2023 10:41-0500 Body weight 93.[address] Valeriano Beasley Work Phone: [facility] 05-18-2023 10:39-0400 Body weight 91.76 kg Valeriano Beasley MD Work Phone: [facility] 05-18-2023 10:39-0400 Diastolic blood pressure 80 mm[Hg] Valeriano Beasley MD Work Phone: [facility] 05-18-2023 10:39-0400 Heart rate 58 /min Valeriano Beasley MD Work Phone: [facility] 05-18-2023 10:39-0400 SaO2% (BldA) [Mass fraction] 96 % Valeriano Beasley MD Work Phone: [facility] 05-18-2023 10:39-0400 Systolic blood pressure 122 mm[Hg] Valeriano Beasley MD Work Phone: [facility] 04-20-2023 12:38-0400 Diastolic blood pressure 81 mm[Hg] Valeriano Beasley MD Work Phone: [facility] 04-20-2023 12:38-0400 Heart rate 53 /min Valeriano Beasley MD Work Phone: [facility] 04-20-2023 12:38-0400 Systolic blood pressure 152 mm[Hg] Valeriano Beasley MD Work Phone: [facility] 04-20-2023 11:22-0400 Body height 174.6 cm Valeriano Beasley MD Work Phone: [facility] 04-20-2023 11:22-0400 Body weight 91.17 kg Valeriano Beasley MD Work Phone: [facility] 04-20-2023 11:22-0400 Respiratory rate 16 /min Valeriano Beasley MD Work Phone: [facility] 12-09-2022 11:00-0400 Body height 177.[address] Valeriano Beasley Work Phone: [facility] 12-09-2022 11:00-0400 Body mass index (BMI) [Ratio] 27.6 kg/m2 Dr. Valeriano Beasley Work Phone: 4(802)174-176106 [place] [address] 12-09-2022 11:00-0400 Body weight 87.[address] Valeriano Beasley Work Phone: 0(661)747-335706 [place] [address] 12-09-2022 11:00-0400 Diastolic blood pressure 71 mm[Hg] Dr. Valeriano Beasley Work Phone: 8(364)887-255984 [place] [address] 12-09-2022 11:00-0400 Heart rate 59 /min Dr. Valeriano Beasley Work Phone: 7(255)801-378684 [place] [address] 12-09-2022 11:00-0400 Respiratory rate 16 /min Dr. Valeriano Beasley Work Phone: 5(872)133-665784 [place] [address] 12-09-2022 11:00-0400 Systolic blood pressure 141 mm[Hg] Dr. Valeriano Beasley Work Phone: 7(544)851-476684 [place] [address] 2022 12:59-0400 Body mass index (BMI) [Ratio] 28.3 kg/m2 Dr. Valeriano Beasley Work Phone: 6(676)616-483684 [place] [address] 2022 12:59-0400 Body weight 89.[address] Valeriano Beasley Work Phone: 5(134)727-044284 [place] [address] 2022 12:59-0400 Diastolic blood pressure 76 mm[Hg] Dr. Valeriano Beasley Work Phone: 5(405)634-135084 [place] [address] 2022 12:59-0400 Heart rate 59 /min Dr. Valeriano Beasley Work Phone: 7(634)335-762306 [place] [address] 2022 12:59-0400 SaO2% (BldA) [Mass fraction] 94 % Dr. Valeriano Beasley Work Phone: 3(349)828-916284 [place] [address] 2022 12:59-0400 Systolic blood pressure 152 mm[Hg] Dr. Valeriano Beasley Work Phone: 0(166)446-463306 [place] [address] 10-12-2022 10:09-0400 Body temperature 97.2 [degF] Suzanna Dawson PA-C Work Phone: [facility] 10-12-2022 10:09-0400 Body weight 85.73 kg Suzanna Dawson PA-C Work Phone: [facility] 10-12-2022 10:09-0400 Diastolic blood pressure 80 mm[Hg] Suzanna Dawson PA-C Work Phone: [facility] 10-12-2022 10:09-0400 Heart rate 56 /min Suzanna Dawson PA-C Work Phone: [facility] 10-12-2022 10:09-0400 Respiratory rate 16 /min Suzannaselvin Dawson PA-C Work Phone: [facility] 10-12-2022 10:09-0400 Systolic blood pressure 136 mm[Hg] Suzanna Dawson PA-C Work Phone: [facility] 09-14-2022 14:41-0500 Body weight 88.91 kg Valeriano Beasley MD Work Phone: [facility] 09-14-2022 14:41-0500 Diastolic blood pressure 78 mm[Hg] Valeriano Beasley MD Work Phone: [facility] 09-14-2022 14:41-0500 Heart rate 58 /min Valeriano Beasley MD Work Phone: [facility] 09-14-2022 14:41-0500 Systolic blood pressure 118 mm[Hg] Valeriano Beasley MD Work Phone: [facility] 09-10-2022 11:00-0500 Body temperature 98.9 [degF] Dr. Valeriano Beasley Work Phone: [facility] 09-10-2022 11:00-0500 Diastolic blood pressure 85 mm[Hg] Dr. Valeriano Beasley Work Phone: [facility] 09-10-2022 11:00-0500 Heart rate 81 /min Dr. Valeriano Beasley Work Phone: [facility] 09-10-2022 11:00-0500 Respiratory rate 18 /min Dr. Valeriano Beasley Work Phone: [facility] 09-10-2022 11:00-0500 SaO2% (BldA) [Mass fraction] 95 % Dr. Valeriano Beasley Work Phone: [facility] 09-10-2022 11:00-0500 Systolic blood pressure 141 mm[Hg] Dr. Valeriano Beasley Work Phone: [facility] 09-10-2022 05:55-0500 Body weight 90.[address] Valeriano Beasley Work Phone: [facility] 09-06-2022 15:28-0500 Body height 177.[address] Valeriano Beasley Work Phone: [facility] 09-04-2022 17:45-0500 Inhaled oxygen flow rate 2 L/min Dr. Valeriano Beasley Work Phone: [facility] 09-02-2022 16:04-0500 Body mass index (BMI) [Ratio] 26.9 kg/m2 Dr. Valeriano Beasley Work Phone: [facility] 06-27-2022 08:46-0500 Body height 177.8 cm [facility] Work Phone: 06-27-2022 08:46-0500 Body weight 89.58 kg [facility] 05-25-2022 09:38-0400 Body weight 92.98 kg [facility] 04-25-2022 11:19-0400 Body height 177.8 cm [facility] [place] Work Phone: 04-25-2022 11:19-0400 Body weight 90.71 kg [facility] 04-18-2022 15:36-0400 Diastolic blood pressure 105 mm[Hg] Valeriano Beasley MD Work Phone: [facility] 04-18-2022 15:36-0400 Systolic blood pressure 175 mm[Hg] Valeriano Beasley MD Work Phone: [facility] 04-18-2022 14:39-0400 Body height 174 cm Valeriano Beasley MD Work Phone: [facility] 04-18-2022 14:39-0400 Body weight 90.36 kg Valeriano Beasley MD Work Phone: [facility] 04-18-2022 14:39-0400 Heart rate 66 /min Valeriano Beasley MD Work Phone: [facility] 04-18-2022 14:39-0400 Respiratory rate 16 /min Valeriano Beasley MD Work Phone: [facility] 03-25-2022 15:31-0400 Body height 177.8 cm [facility] [place] Work Phone: 03-25-2022 15:31-0400 Body weight 88.45 kg [facility] [place] Work Phone: 03-25-2022 14:44-0400 Body mass index (BMI) [Ratio] 27.1 kg/m2 [facility] Work Phone: 03-25-2022 14:44-0400 Body temperature 98.7 [degF] [facility] Work Phone: 03-25-2022 14:44-0400 Diastolic blood pressure 80 mm[Hg] [facility] Work Phone: 03-25-2022 14:44-0400 Heart rate 56 /min [facility] [place] Work Phone: 03-25-2022 14:44-0400 Respiratory rate 14 /min [facility] Work Phone: 03-25-2022 14:44-0400 SaO2% (BldA) [Mass fraction] 95 % [facility] Work Phone: 03-25-2022 14:44-0400 Systolic blood pressure 134 mm[Hg] [facility] Work Phone: 01-27-2022 14:00-0400 Diastolic blood pressure 80 mm[Hg] DR FRANKLIN NASH MD [address] [place] [address] 01-27-2022 14:00-0400 Heart rate 64 /min DR FRANKLIN NASH MD [address] [place] [address] 01-27-2022 14:00-0400 Mean blood pressure 97 mm[Hg] DR FRANKLIN NASH MD [address] [place] [address] 01-27-2022 14:00-0400 Systolic blood pressure 130 mm[Hg] DR FRANKLIN NASH MD [address] [place] [address] 01-27-2022 13:15-0400 Diastolic blood pressure 72 mm[Hg] DR FRANKLIN NASH MD [address] [place] [address] 01-27-2022 13:15-0400 Heart rate 65 /min DR FRANKLIN NASH MD [address] [place] [address] 01-27-2022 13:15-0400 Mean blood pressure 90 mm[Hg] DR FARNKLIN NASH MD [address] [place] [address] 01-27-2022 13:15-0400 Systolic blood pressure 127 mm[Hg] DR FRANKLIN NASH MD [address] [place] [address] 01-27-2022 13:00-0400 Diastolic blood pressure 75 mm[Hg] DR FRANKLIN NASH MD [address] [place] [address] 01-27-2022 13:00-0400 Heart rate 66 /min DR FRANKLIN NASH MD [address] [place] [address] 01-27-2022 13:00-0400 Mean blood pressure 92 mm[Hg] DR FRANKLIN NASH MD [address] [place] [address] 01-27-2022 12:08-0400 Reason For Taking VItal Signs DR FRANKLIN NASH MD [address] [place] [address] 01-27-2022 12:08-0400 Respiratory rate 18 /min DR FRANKLIN NASH MD [address] [place] [address] 01-27-2022 11:24-0400 Reason For Taking VItal Signs DR FRANKLIN NASH MD [address] [place] [address] 01-27-2022 11:24-0400 Respiratory rate 16 /min DR FRANKLIN NASH MD [address] [place] [address] 01-27-2022 06:11-0400 Body height 177.[address] FRANKLIN NASH MD [address] [place] [address] 01-27-2022 06:11-0400 Body temperature 97.34 [degF] DR FRANKLIN NASH MD [address] [place] [address] 01-27-2022 06:11-0400 Body weight 88.[address] FRANKLIN NASH MD [address] [place] [address] 01-27-2022 06:11-0400 Body weight 28.12 kg/m2 DR FRANKLIN NASH MD [address] [place] [address] 01-27-2022 06:11-0400 diastolic 85 mm[Hg] DR FRANKLIN NASH MD [address] [place] [address] 01-27-2022 06:11-0400 Heart rate 56 /min DR FRANKLIN NASH MD [address] [place] [address] 01-27-2022 06:11-0400 Respiratory rate 16 /min DR FRANKLIN NASH MD [address] [place] [address] 01-27-2022 06:11-0400 systolic 149 mm[Hg] DR FRANKLIN NASH MD [address] [place] [address] 12-01-2021 10:25-0400 Diastolic blood pressure 78 mm[Hg] CHRISTINE EDWARDS MD [address] [place] [address] 12-01-2021 10:25-0400 Heart rate 85 /min CHRISTINE EDWARDS MD [facility] 12-01-2021 10:25-0400 Respiratory rate 20 /min CHRISTINE EDWARDS MD [facility] 12-01-2021 10:25-0400 Systolic blood pressure 142 mm[Hg] CHRISTINE EDWARDS MD [facility] 12-01-2021 10:18-0400 Heart rate 93 /min CHRISTINE EDWARDS MD [facility] 12-01-2021 08:01-0400 Heart rate 68 /min CHRISTINE EDWARDS MD [facility] 12-01-2021 06:26-0400 Body temperature 97.7 [degF] CHRISTINE EDWARDS MD [facility] 12-01-2021 06:26-0400 Diastolic blood pressure 62 mm[Hg] CHRISTINE EDWARDS MD [facility] 12-01-2021 06:26-0400 Reason For Taking VItal Signs CHRISTINE EDWARDS MD [facility] 12-01-2021 06:26-0400 Respiratory rate 20 /min CHRISTINE EDWARDS MD [facility] 12-01-2021 06:26-0400 Systolic blood pressure 130 mm[Hg] CHRISTINE EDWARDS MD [facility] 12-01-2021 04:04-0400 Diastolic blood pressure 70 mm[Hg] CHRISTINE EDWARDS MD [facility] 12-01-2021 04:04-0400 Mean blood pressure 89 mm[Hg] CHRISTINE EDWARDS MD [facility] 12-01-2021 04:04-0400 Reason For Taking VItal Signs CHRISTINE EDWARDS MD [facility] 12-01-2021 04:04-0400 Respiratory rate 20 /min CHRISTINE EDWARDS MD [facility] 12-01-2021 04:04-0400 Systolic blood pressure 128 mm[Hg] CHRISTINE EDWARDS MD [facility] 11-30-2021 22:06-0400 Body temperature 98.24 [degF] CHRISTINE EDWARDS MD [facility] 11-30-2021 22:06-0400 Mean blood pressure 103 mm[Hg] CHRISTINE EDWARDS MD [facility] 11-30-2021 22:06-0400 Reason For Taking VItal Signs CHRISTINE EDWARDS MD [facility] 11-30-2021 19:22-0400 Diastolic Blood Pressure NBP 82 1 CHRISTINE EDWARDS MD [facility] 11-30-2021 19:22-0400 Systolic Blood Pressure NBP 138 1 CHRISTINE EDWARDS MD [facility] 11-30-2021 19:01-0400 Body temperature 97.7 [degF] CHRISTINE EDWARDS MD [facility] 11-30-2021 19:01-0400 Mean blood pressure 95 mm[Hg] CHRISTINE EDWARDS MD [facility] 11-30-2021 13:20-0400 SaO2% (BldA) [Mass fraction] 96.3 % CHRISTINE EDWARDS MD [facility] 11-30-2021 11:33-0400 Heart rate 56 /min CHRISTINE EDWARDS MD [facility] 11-30-2021 09:52-0400 Heart rate 64 /min CHRISTINE EDWARDS MD [facility] 11-30-2021 07:29-0400 Heart rate 52 /min CHRISTINE EDWARDS MD [facility] 11-30-2021 02:55-0400 Diastolic Blood Pressure NBP 72 1 CHRISTINE EDWARDS MD [facility] 11-30-2021 02:55-0400 Mean blood pressure 85 mm[Hg] CHRISTINE EDWARDS MD [facility] 11-30-2021 02:55-0400 Systolic Blood Pressure NBP 118 1 CHRISTINE EDWARDS MD [facility] 11-30-2021 02:22-0400 Diastolic Blood Pressure NBP 52 1 CHRISTINE EDWARDS MD [facility] 11-30-2021 02:22-0400 Mean blood pressure 68 mm[Hg] CHRISTINE EDWARDS MD [facility] 11-30-2021 02:22-0400 Systolic Blood Pressure NBP 104 1 CHRISTINE EDWARDS MD [facility] 11-30-2021 00:05-0400 Mean blood pressure 85 mm[Hg] CHRISTINE EDWARDS MD [facility] 11-29-2021 16:55-0400 Body height 177.8 cm CHRISTINE EDWARDS MD [facility] 11-29-2021 16:55-0400 Body weight 94.5 kg CHRISTINE EDWARDS MD [facility] 11-29-2021 16:55-0400 Body weight 29.89 kg/m2 CHRISTINE EDWARDS MD [facility] 11-29-2021 15:00-0400 Diastolic blood pressure 141 mm[Hg] DONAVON NUNEZ DO [facility] 11-29-2021 15:00-0400 Heart rate 59 /min DONAVON NUNEZ DO [facility] 11-29-2021 15:00-0400 Respiratory rate 20 /min DONAVON NUNEZ DO [facility] 11-29-2021 15:00-0400 Systolic blood pressure 155 mm[Hg] DONAVON NUNEZ DO [facility] 11-29-2021 14:56-0400 Body weight 95.4 kg DONAVON NUNEZ DO [facility] 11-29-2021 14:34-0400 Body temperature 98.6 [degF] DONAVON NUNEZ DO [facility] 11-29-2021 14:34-0400 Body weight 95.4 kg DONAVON NUNEZ DO [facility] 11-29-2021 14:34-0400 Diastolic blood pressure 97 mm[Hg] DONAVON NUNEZ DO [facility] 11-29-2021 14:34-0400 Heart rate 40 /min DONAVON NUNEZ DO [facility] 11-29-2021 14:34-0400 Respiratory rate 22 /min DONAVON NUNEZ DO [facility] 11-29-2021 14:34-0400 Systolic blood pressure 138 mm[Hg] DONAVON NUNEZ DO [facility] Encounters Encounter Date Encounter Type Care Provider Facility Start: 01-23-2025 Evaluation and management of inpatient Dr. Tessa Hampton DO -Progressive Care Unit Work Phone: Start: 01-23-2025 End: 01-23-2025 ambulatory Valeriano Beasley MD Work Phone: [facility] Comment on above: RECENT GI BLEED Rectal Bleeding Start: 01-01-2025 End: 01-01-2025 ambulatory VALERIANO Lance:[facility] Start: 01-01-2025 End: 01-01-2025 Patient encounter procedure Suzanna Dawson PA-C Work Phone: [facility] Comment on above: Hospital discharge f ollow-up (Primary Dx); Essential hypertension, benign Start: 12-30-2024 Non-patient / Non-visit Dr. Alexi Flanagan [facility] Work Phone: Start: 12-30-2024 Non-patient / Non-visit Dr. Homer avila DO -[facility] Start: 12-29-2024 Non-patient / Non-visit Dr. Alexi Flanagan [facility] Work Phone: Start: 12-28-2024 Non-patient / Non-visit Dr. Alexi Flanagan [facility] Work Phone: Start: 12-27-2024 Non-patient / Non-visit Dr. Flakita Florentino [facility] Work Phone: Start: 12-27-2024 ambulatory Flakita Florentino Facility:[facility] Start: 12-27-2024 End: 12-30-2024 Evaluation and management of inpatient Dr. Flakita Florentino -Intensive Care Unit Work Phone: Start: 12-26-2024 End: 12-26-2024 Chart abstracting Valeriano Beasley MD Work Phone: [facility] Comment on above: Outside Cardiology Start: 12-23-2024 End: 12-23-2024 Patient encounter procedure Patria Khanna MD Work Phone: Neurology Comment on above: Peripheral polyneuro mikala (Primary Dx); Low vitamin B12 level; Drinks beer Start: 12-23-2024 End: 12-23-2024 ambulatory PATRIA KHANNA JR Facility:[facility] Start: 11-14-2024 End: 01-14-2025 Follow-up encounter Nyla De Jesus DO Work Phone: Rheumatology Start: 11-12-2024 End: 11-12-2024 Chart abstracting Valeriano Beasley MD Work Phone: [facility] Comment on above: Outside Urology Start: 11-07-2024 End: 01-07-2025 Follow-up encounter Ni Sauceda APRN.CNP Work Phone: [facility] Comment on above: Results Start: 11-06-2024 ambulatory VALERIANO BEASLEY Facili ty:[facility] Start: 11-06-2024 End: 11-06-2024 Subsequent hospital visit by physician [facility] Work Phone: Radiology Comment on above: Screening for abdomi nal aortic aneurysm [Z13.6] Start: 11-05-2024 End: 11-12-2024 Chart abstracting Flakita Pastor MA [facility] Comment on above: external document (L ab results) Start: 11-05-2024 End: 11-05-2024 Patient encounter procedure Estefany LAMBERT -[facility] Work Phone: Start: 11-05-2024 End: 11-05-[address] Valeriano Beasley MD Work Phone: [facility] Work Phone: Start: 11-05-2024 End: 11-05-2024 ambulatory Shubham Francis Facility:[facility] Start: 11-01-2024 End: 11-01-2024 Patient encounter procedure Ni Sauceda APRN.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 MANAGER Work Phone: [facility] Comment on above: Essential hypertensi on, benign (Primary Dx); Alcoholic cirrhosis, unspecified whether ascites present (HCC); Advance directive discussed with patient; Valvular heart disease; Lumbosacral radiculopathy at L5; Mixed hyperlipidemia; Coronary artery disease due to lipid rich plaque; Low vitamin D level; Prostate disorder; Low serum vitamin B12; Medication management; Screening for abdominal aortic aneurysm Start: 11-01-2024 End: 11-01-2024 ambulatory VALERIANO BEASLEY Facility:[facility] Start: 10-30-2024 End: 10-30-2024 ambulatory VALERIANO BEASLEY Facility:[facility] Start: 10-29-2024 End: 10-30-2024 Follow-up encounter Stephanie Roy DO Work Phone: Hematology/Oncology Start: 10-23-2024 End: 10-23-2024 ambulatory VALERIANO BEASLEY Facility:[facility] Start: 10-23-2024 End: 10-23-2024 Subsequent hospital visit by physician Vonnie [facility] Work Phone: Radiology Comment on above: Monoclonal gammopath y [D47.2] Start: 10-23-2024 End: 10-23-2024 Chart abstracting Ganesh White MA [facility] Comment on above: Results Start: 10-23-2024 End: 10-23-2024 ambulatory Stephanie Roy DO Work Phone: Hematology/Oncology Comment on above: Monoclonal gammopath y (Primary Dx); Neuropathy - (NOS) Start: 10-23-2024 End: 10-23-2024 Patient encounter procedure Stephanie Roy DO Work Phone: Hematology/Oncology Start: 10-21-2024 End: 10-21-2024 ambulatory VALERIANO BEASLEY Facility:[facility] Start: 10-11-2024 End: 10-11-[address] Valeriano Beasley MD Work Phone: [facility] Work Phone: Start: 10-11-2024 End: 10-11-[address] Geovani Barron MD -Laboratory, Specimen Work Phone: Start: 10-11-2024 End: 10-11-2024 ambulatory Valeriano Beasley Facility:[facility] Start: 10-09-2024 Encounter for preprocedural cardiovascular examination Geovani Barron [facility] Start: 09-27-2024 End: 10-01-2024 Telephone encounter Stephanie Roy DO Work Phone: Hematology/Oncology Comment on above: Results Start: 09-26-2024 End: 09-26-[address] Valeriano Beasley MD Work Phone: [facility] Work Phone: Start: 09-26-2024 End: 09-26-2024 [...] Valeriano Beasley MD Work Phone: [facility] [place] Comment on above: Outside Imaging (Uro logy/) Start: 09-23-2024 End: 09-23-[address] Valeriano Beasley MD Work Phone: [facility] Work Phone: Start: 09-23-2024 End: 09-23-[address] Geovani Barron MD -Radiology, [facility] Work Phone: Start: 09-23-2024 End: 09-23-2024 ambulatory Valeriano Beasley Facility:[facility] Start: 09-19-2024 End: 09-19-[address] Shubham Blanco MD -[facility] Work Phone: Start: 09-19-2024 End: 09-19-2024 ambulatory Shubham Blanco Facility:[facility] Start: 09-18-2024 End: 09-18-2024 Chart abstracting Ganesh White MA [facility] [place] Comment on above: Results (Outside lab s ) Start: 09-17-2024 End: 09-17-2024 Chart abstracting Valeriano Beasley MD Work Phone: [facility] [place] Comment on above: Outside Tfeu-Msl-LGI Ordered Start: 09-13-2024 End: 09-13-2024 Chart abstracting Valeriano Beasley MD Work Phone: [facility] Comment on above: Outside Sqwb-Gqc-JSL Ordered Start: 09-12-2024 End: 09-12-[address] Shubham Blanco MD -Laboratory Work Phone: Start: 09-12-2024 End: 09-12-2024 ambulatory Shubham Blanco Facility:[facility] Start: 09-07-2024 End: 09-07-2024 Chart abstracting Valeriano Beasley MD Work Phone: [facility] Comment on above: Outside Imaging Start: 09-06-2024 End: 09-06-[address] Shubham Blanco MD -Cat Scan, [facility] Work Phone: Start: 09-06-2024 End: 09-06-2024 ambulatory Shubham Blanco Facility:[facility] Start: 09-03-2024 End: 09-03-2024 ambulatory Nyla [...] Start: 08-30-2024 End: 08-30-2024 ambulatory VALERIANO BEASLEY Facility:[facility] Start: 08-30-2024 End: 08-30-2024 Patient encounter procedure Patria Khanna MD Work Phone: Neurology Comment on above: Neuropathy, idiopath ic (Primary Dx); Abnormal SPEP; Positive GALLO (antinuclear antibody); Abnormality of gait; Numbness Start: 08-30-2024 End: 08-30-2024 ambulatory VALERIANO BEASLEY Facility:[facility] Start: 08-28-2024 End: 08-28-2024 Chart abstracting Valeriano Beasley MD Work Phone: [facility] [place] Comment on above: Outside Urology Start: 08-19-2024 End: 08-19-2024 ambulatory JASWINDER REDMOND Facility:[facility] Start: 08-19-2024 End: 08-19-2024 ambulatory VALERIANO BEASLEY Facility:[facility] Start: 08-19-2024 End: 08-19-2024 Office consultation new/estab patient 40 min Arun Christian DO Work Phone: Allergy Comment on above: Angioedema, subseque nt encounter Start: 07-31-2024 End: 07-31-2024 ambulatory VALERIANO BEASLEY Facility:[facility] Start: 07-31-2024 End: 07-31-2024 Patient encounter procedure Valeriano Beasley MD Work Phone: [facility] [place] Comment on above: Angioedema, subseque nt encounter (Primary Dx) Start: 07-19-2024 End: 07-19-2024 Chart abstracting Valeriano Beasley MD Work Phone: [facility] [place] Comment on above: ER Discharge Summary Refill Request Start: 07-18-2024 End: 07-18-2024 Emergency department patient visit Dr. Stan Gilbert DO -Emergency Department Work Phone: Start: 06-05-2024 End: 06-05-2024 Chart abstracting Valeriano Beasley MD Work Phone: [facility] [place] Comment on above: Outside Gastro Start: 06-04-2024 End: 06-04-2024 ambulatory Valeriano Beasley Facility:[facility] Start: 05-30-2024 End: 05-30-2024 Chart abstracting Valeriano Beasley MD Work Phone: [facility] [place] Start: 05-29-2024 End: 05-29-2024 ambulatory VALERIANO BEASLEY Facility:[facility] Start: 05-29-2024 End: 05-29-2024 Office outpatient visit 15 minutes Suzanna Dawson PA-C Work Phone: [facility] Comment on above: Essential hypertensi on, benign (Primary Dx) Start: 05-28-2024 End: 05-28-2024 Chart abstracting Valeriano Beasley MD Work Phone: [facility] Comment on above: Outside Urology Start: 05-20-2024 End: 05-21-2024 Telephone encounter Suzanna Dawson PA-C Work Phone: [facility] [place] Comment on above: Results Start: 05-16-2024 End: 05-16-2024 ambulatory VALERIANO BEASLEY Facility:[facility] Start: 05-14-2024 End: 05-20-2024 Telephone encounter Suzanna Dawson PA-C Work Phone: [facility] [place] Comment on above: Results Start: 05-14-2024 End: 05-14-2024 ambulatory Valeriano Beasley Facility:[facility] Start: 05-13-2024 End: 05-13-2024 Telephone encounter Valeriano Beasley MD Work Phone: [facility] Comment on above: Patient Question Start: 05-01-2024 End: 05-01-2024 Telephone encounter Valeriano Beasley MD Work Phone: [facility] Comment on above: Release Of Medical R ecords Start: 05-01-2024 End: 05-01-2024 ambulatory VALERIANO BEASLEY Facility:[facility] Start: 05-01-2024 End: 05-01-2024 Patient encounter procedure Suzanna Dawson PA-C Work Phone: [facility] Comment on above: Medicare annual well ness visit, subsequent (Primary Dx); Encounter for immunization; Essential hypertension, benign; Advance directive discussed with patient; Living will in place; Financial Accounting Analyst's nodules; Valvular heart disease; Coronary artery disease due to lipid rich plaque; Heart murmur, systolic; Mixed hyperlipidemia; Low vitamin D level; Low serum vitamin B12; Gout without tophus; Overweight with body mass index (BMI) of 29 to 29.9 in adult; Elevated LFTs; Alcohol abuse; Elevated PSA Start: 04-17-2024 End: 04-17-2024 Chart abstracting Ganesh White MA [facility] [place] Comment on above: Consult (Outside Car diology /) Start: 04-15-2024 End: 04-15-2024 ambulatory Valeriano Beasley [place] Start: 04-04-2024 End: 04-04-2024 ambulatory [facility] Facility:[facility] Start: 04-04-2024 End: 04-04-2024 Patient encounter procedure Ni Sauceda APRN.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 Work Phone: [facility] [place] Comment on above: Essential hypertensi on, benign (Primary Dx) Start: 04-01-2024 End: 04-01-2024 Chart abstracting Ganesh White MA [facility] [place] Comment on above: ER F/U Start: 04-01-2024 End: 04-01-2024 Telephone encounter Ganesh White MA [facility] [place] Comment on above: Appointment Start: 03-29-2024 End: 03-29-2024 Emergency department patient visit Valeriano [facility] Facility:[facility] Start: 03-29-2024 End: 03-29-2024 [facility] Facility:[facility] Start: 03-29-2024 End: 03-29-2024 Patient encounter procedure Gardenia Villareal APRN.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 MANAGER Work Phone: [facility] Comment on above: Tongue swelling (Linda marilyn Dx) Start: 03-12-2024 ambulatory Valeriano Gale [place] Start: 02-08-2024 End: 02-08-2024 Subsequent hospital visit by physician Analilia [facility] (I-Stat) Work Phone: Cat Scan Comment on above: Occlusion and stenos is of unspecified carotid artery [I65.29] Start: 02-08-2024 End: 02-08-2024 ambulatory PATRIA KHANNA JR Facility:[facility] Start: 02-06-2024 Telephone encounter Patria Khanna MD Work Phone: Neurology Comment on above: Results Start: 02-06-2024 End: 02-06-2024 ambulatory PATRIA KHANNA JR Facility:[facility] Start: 02-06-2024 End: 02-06-2024 Subsequent hospital visit by physician [employer] [facility] (I-Stat/1.5t) Work Phone: Radiology Comment on [...] encounter Valeriano Beasley MD Work Phone: [facility] [place] Comment on above: Patient Question Start: 12-19-2023 Chart abstracting Valeriano lua MD Work Phone: [facility] [place] Comment on above: Ext / Nuclear Stress Test Start: 10-17-2023 Telephone encounter Valeriano Beasley MD Work Phone: Family [facility] [place] Comment on above: Orders (labs) Start: 10-14-2023 ambulatory Genny Tsai MA [facility] Start: 10-14-2023 Patient encounter [facility] [place] Comment on above: Population Health Na vigation Outreach ([facility] Annual Wellness Visit ) Start: 10-03-2023 Telephone encounter Valeriano Beasley MD Work Phone: Family [facility] [place] Comment on above: Orders Start: 09-29-2023 Chart abstracting Valeriano lua MD Work Phone: Family [facility] [place] Comment on above: Outside Echo ([place]) Start: 09-28-2023 Non-patient / Non-visit Dr. William Beasley Work Phone: [facility] Work Phone: Start: 09-28-2023 Non-patient / Non-visit Dr. William Beasley [facility] Start: 09-28-2023 End: 09-28-[address] Valeriano Beasley Work Phone: [facility] Work Phone: Start: 09-28-2023 End: 09-28-[address] [facility] Work Phone: Start: 09-25-2023 Refill Valeriano solano MD Work Phone: [facility] Comment on above: Refill Request Start: 09-07-2023 Chart abstracting Valeriano lua MD Work Phone: [facility] Comment on above: [facility] (labs) Start: 09-06-2023 Chart abstracting Valeriano lua MD Work Phone: [facility] Comment on above: Outside Cardiology ( labs) Start: 09-05-2023 End: 09-05-[address] Valeriano Beasley Work Phone: [facility] Work Phone: Start: 09-05-2023 End: 09-05-[address] Valeriano Beasley Work Phone: [facility] Work Phone: Start: 09-04-2023 Chart abstracting Valeriano lua MD Work Phone: [facility] Comment on above: outside imaging Start: 09-01-2023 Chart abstracting Valeriano lua MD Work Phone: [facility] Comment on above: Outside Orthopedics Start: 09-01-2023 Telephone encounter Valeriano Beasley MD Work Phone: Radiology Start: 09-01-2023 End: 09-01-[address] 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 William Beasley Work Phone: [facility] Start: 05-25-2023 End: 05-25-[address] Valeriano Beasley Work Phone: [facility] Work Phone: Start: 05-25-2023 End: 05-25-[address] Valeriano Beasley Work Phone: [facility]-P[facility] Services/Neurology Work Phone: Start: 05-18-2023 End: 05-18-2023 Patient encounter procedure Valeriano Beasley MD Work Phone: [facility] [place] Comment on above: Essential hypertensi on, benign (Primary Dx); Low serum vitamin B12; Anxiety Start: 04-20-2023 End: 04-20-2023 Patient encounter procedure Valeriano Beasley MD Work Phone: [facility] Comment on above: [facility], subsequent (Primary Dx); Essential hypertension, benign; [...] Chart abstracting Valeriano lua MD Work Phone: [facility] Comment on above: Outside GI Start: 12-20-2022 ambulatory Valeriano solano MD Work Phone: [facility] Start: 12-09-2022 End: 12-09-[address] Valeriano Beasley Work Phone: [facility] Work Phone: Start: 12-09-2022 End: 12-09-[address] Valeriano Beasley Work Phone: [facility] Start: 11-10-2022 Refill Valeriano solano MD Work Phone: [facility] Comment on above: Refill Request Refill Request (This is a short term to local pharmacy and a copy of the 90 sent to mail order.) Start: 10-20-2022 Chart abstracting Valeriano lua MD Work Phone: [facility] Comment on above: Consult (GI ) Start: 2022 End: [address] Valeriano Beasley Work Phone: [facility] Start: 10-13-2022 Telephone encounter Suzanna park PA-C Work Phone: [facility] Comment on above: Results Start: 10-12-2022 End: 10-12-2022 Patient encounter procedure Suzanna Dawson PA-C Work Phone: [facility] Comment on above: Essential hypertensi on, benign (Primary Dx); Mixed hyperlipidemia; NSTEMI (non-ST elevated myocardial infarction) (HCC); Coronary artery disease due to lipid rich plaque; AVM (arteriovenous malformation) of colon; Situational depression; Alcohol abuse; Anxiety; Elevated PSA; Lower GI bleed; Anemia, unspecified type; Prostate disorder; Low vitamin D level; Gout without tophus Start: 09-21-2022 Non-patient / Non-visit Dr. William Beasley Work Phone: [facility] Start: 09-15-2022 Telephone encounter Valeriano Beasley MD Work Phone: [facility] Comment on above: Results Start: 09-14-2022 End: 09-14-2022 Patient encounter procedure Valeriano Beasley MD Work Phone: [facility] Comment on above: Lower GI bleed (Prim [place] Dx); Situational depression; AVM (arteriovenous malformation) of colon; Alcohol abuse; H/O non-ST elevation myocardial infarction (NSTEMI); Mixed hyperlipidemia Start: 09-10-2022 ambulatory Valeriano solano MD Work Phone: [facility] Start: 09-10-2022 Follow-up encounter Valeriano Beasley MD Work Phone: [facility] Comment on above: [facility] Start: 09-10-2022 Non-patient / Non-visit Dr. William Beasley Work Phone: [facility] Start: 09-10-2022 Non-patient / Non-visit Dr. William Beasley Work Phone: [facility] Start: 09-09-2022 Non-patient / Non-visit Dr. William Beasley Work Phone: [facility] Start: 09-08-2022 Non-patient / Non-visit Dr. William Beasley Work Phone: [facility] Start: 09-08-2022 Non-patient / Non-visit Dr. William Beasley Work Phone: [facility] Start: 09-07-2022 Non-patient / Non-visit Dr. William Beasley Work Phone: [facility] Start: 09-07-2022 Non-patient / Non-visit Dr. William Beasley Work Phone: [facility] Start: 09-06-2022 Non-patient / Non-visit Dr. William Beasley Work Phone: [facility] Start: 09-06-2022 Non-patient / Non-visit Dr. William Beasley Work Phone: [facility] Start: 09-06-2022 Non-patient / Non-visit Dr. William Beasley Work Phone: [facility] Start: 09-05-2022 Non-patient / Non-visit Dr. William Beasley Work Phone: [facility] Start: 09-05-2022 Non-patient / Non-visit Dr. William Beasley Work Phone: [facility] Start: 09-05-2022 Chart abstracting Valeriano lua MD Work Phone: [facility] [place] Comment on above: Consult ([facility]ult [facility] ) Results (EGD results - [facility] ) Start: 09-05-2022 Non-patient / Non-visit Dr. William Beasley Work Phone: [facility] Start: 09-04-2022 Non-patient / Non-visit Dr. William Beasley Work Phone: [facility] Start: 09-04-2022 Non-patient / Non-visit Dr. William Beasley Work Phone: [facility] Start: 09-04-2022 Non-patient / Non-visit Dr. William Beasley Work Phone: [facility] Start: 09-03-2022 Non-patient / Non-visit Dr. William Beasley Work Phone: [facility] Start: 09-02-2022 End: 09-02-2022 Non-patient / Non-visit Dr. Valeriano Beasley Work Phone: [facility] Start: 09-02-2022 Non-patient / Non-visit Dr. William Beasley Work Phone: [facility] Start: 09-02-2022 End: 09-10-2022 Evaluation and management of inpatient Dr. Valeriano Beasley Work Phone: [facility]-Progressive Care Unit Start: 06-27-2022 End: 07-23-2022 ambulatory [facility] Work Phone: Start: 06-27-2022 End: 07-23-2022 Discharged Recurring [facility]-Cardiac Rehab Start: 06-22-2022 End: 06-22-2022 Discharged Recurring [facility] Start: 05-23-2022 End: 05-23-2022 ambulatory [facility] Work Phone: Start: 05-23-2022 End: 05-23-2022 Discharged Recurring [facility] Start: 04-22-2022 End: 04-22-2022 ambulatory [facility] Work Phone: Start: 04-22-2022 End: 04-22-2022 Discharged Recurring [facility] Start: 04-18-2022 End: 04-18-2022 Patient encounter procedure Valeriano Beasley MD Work Phone: [facility] [place] Comment on above: Medicare annual well ness visit, subsequent (Primary Dx); Essential hypertension, benign; Mixed hyperlipidemia; Coronary artery disease due to lipid rich plaque; Anxiety; Low vitamin D level; Gout without tophus; Elevated PSA; Living will in place; Advance directive discussed with patient Start: 04-12-2022 Telephone encounter Valeriano Beasley MD Work Phone: [facility] [place] Comment on above: Orders Start: 03-30-2022 Registered Recurring [facility] Start: 03-25-2022 End: 03-25-2022 ambulatory [facility] Work Phone: Start: 03-25-2022 End: 03-25-2022 Patient encounter procedure [facility] Start: 01-29-2022 ambulatory TESSA GUZMAN MD Facili ty:A Start: 01-27-2022 End: 01-27-[address] FRANKLIN NASH MD Facility:A Start: 01-27-2022 End: 01-27-[address] FRANKLIN NASH MD [facility] Start: 01-18-2022 ambulatory TESSA GUZMAN MD Facili ty:A Start: 01-01-2022 Orders Only Tessa Donato DO Work Phone: [facility] Comment on above: Myocardial infarctio n involving left anterior descending (LAD) coronary artery, unspecified [place] type (HCC) (Primary Dx) Start: 12-31-2021 Telephone encounter Celestine anthony MD Work Phone: Cardiothoracic Comment on above: Insurance Authorizat ion Start: 12-06-2021 Patient encounter procedure Celestine Talavera MD Work Phone: [facility] Work Phone: Start: 12-02-2021 Telephone encounter Ganesh White MA [facility] [place] Comment on above: Appointment Start: 11-29-2021 End: 12-01-2021 Evaluation and management of inpatient CHRISTINE EDWARDS MD [facility] Start: 11-29-2021 End: 11-29-2021 Emergency department patient [facility] [place] Start: 03-15-2021 Patient encounter procedure Ganesh White MA [facility] Work Phone: Procedures Date Procedure Procedure [...] real time screen study aaa Ni Sauceda APRN.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 MANAGER Work Phone: Start: 10-30-2024 Lipid 1996 panel - Serum or Plasma Ni Sauceda APRN.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 MANAGER Work Phone: Start: 10-11-2024 Cholesterol serum/whole blood total Dr. Valeriano Beasley MD Work Phone: Comment on above: Test not performed Start: 10-11-2024 External camera medical photography Dr. Valeriano Beasley MD Work Phone: Comment on above: Photograph will follow under a separate cover Start: 09-23-2024 Plain X-ray abdomen Dr. Valeriano Beasley MD Work Phone: Start: 09-12-2024 [id number]-[id number] measurement Dr. Jae Beasley MD Work Phone: Comment on above: Meggatel Electrochemiluminescen ce Immunoassay(ECLIA)Values obtained with different assay methods or kits cannotbe used interchangeably. Results cannot be interpreted asabsolute evidence of the presence or absence of malignantdisease.This test is not interpretable in females. Start: 09-12-[address] Valeriano Beasley MD Work Phone: Comment on above: Performed at: [facility] [id number] Director: José Miguel Alba PhD, Phone: [phone] Start: 09-12-2024 Antibody to centromere measurement Dr. [...] Phone: Comment on above: Performed at: - [email or web address] [id number] Director: José Miguel Alba PhD, Phone: [phone] at: - [facility] [id number] Director: Zafar Browne MD, Phone: [phone] Start: 09-12-2024 Measurement of renal function Dr. Dalila Beasley MD Work Phone: Comment on above: GFR Calc Start: 09-12-2024 CAN PILER antibody measurement Dr. Valeriano peña MD Work [...] LM, LAD and LCX. Discussed with in boat laborer - Will consult him for CABG [...] DTaP,Tdap,Td Vaccine (3 - Td or Tdap) [facility] Start: 10-30-2029 Lipid panel Lipid Screening [facility] Start: 04-04-2029 Lipid panel Lipid Screening [facility] Start: 10-16-2028 Lipid panel Lipid Screening [facility] Start: 04-14-2028 Lipid 1996 panel - Serum or Plasma Lipid Screening [facility] Start: 04-14-2028 Lipid panel Lipid Screening [facility] Start: 10-31-2027 Diabetes Screening Diabetes Screening [facility] Start: 10-06-2027 LIPID SCREEN LIPID SCREEN [facility] Start: 09-26-2027 Diabetes Screening Diabetes Screening [facility] Start: 09-14-2027 LIPID SCREEN LIPID SCREEN [facility] Start: 04-13-2027 LIPID SCREEN LIPID SCREEN [facility] Start: 04-04-2027 Diabetes Screening Diabetes Screening [facility] Start: 10-16-2026 Diabetes Screening Diabetes Screening [facility] Start: 04-14-2026 Diabetes Screening Diabetes Screening [facility] Start: 03-24-2026 Colonoscopy COLONOSCOPY [facility] Start: 03-24-2026 COLORECTAL CANCER SCREENING COLORECTAL CANCER SCREENING [facility] Start: 03-15-2026 LIPID SCREEN LIPID SCREEN [facility] Start: 01-01-2026 Annual PCP Team Chronic Disease Visit Annual PCP Team Chronic Disease Visit [facility] Start: 11-01-2025 Annual PCP Team Chronic Disease Visit Annual PCP Team Chronic Disease Visit [facility] Start: 11-01-2025 BP Controlled (<130/80) BP Controlled (<130/80) [facility] in Start: 11-01-2025 Covid-19 Vaccine () Covid-19 Vaccine () [facility] Comment on above: Postponed from 10/30/2024 (Declined at t his time) Start: 11-01-2025 Hepatitis A Vaccine (1 of 2 - Risk 2-dose series) Hepatitis A Vaccine (1 of 2 - Risk 2-dose series) [facility] Comment on above: Postponed from 1969 (Declined at t his time) Start: 11-01-2025 Hepatitis B Vaccine (1 of 3 - Risk 3-dose series) Hepatitis B Vaccine (1 of 3 - Risk 3-dose series) [facility] Comment on above: Postponed from 2010 (Declined at t his time) Start: 11-01-2025 RSV Vaccine (1 - Risk 60-74 years 1-dose series) RSV Vaccine (1 - Risk 60-74 years 1-dose series) [facility] Comment on above: Postponed from 2010 (Declined at t his time) Start: 11-01-2025 Shingrix Vaccine (1 of 2) Shingrix Vaccine (1 of 2) [facility] Comment on above: Postponed from 2000 (Declined at t his time) Start: 11-01-2025 Urine microalbumin profile DTaP,Tdap,Td Vaccine (2 - Td or Tdap) [facility] Comment on above: Postponed from 03/04/2018 (Declined at t his time) Start: 10-30-2025 Hepatitis B surface antibody level LDL Cholesterol [facility] Start: 10-23-2025 BP Controlled (<130/80) BP Controlled (<130/80) [facility] Start: 2025 RSV Vaccine (1 - 1-dose 75+ series) RSV Vaccine (1 - 1-dose 75+ series) [facility] Start: 09-14-2025 DIABETES SCREEN DIABETES SCREEN [facility] Start: 09-05-2025 Colonoscopy COLONOSCOPY [facility] Start: 09-05-2025 COLORECTAL CANCER SCREENING COLORECTAL CANCER SCREENING [facility] Start: 09-05-2025 Screening for malignant neoplasm of colon [facility] Start: 08-19-2025 BP Controlled (<130/80) BP Controlled (<130/80) [facility] Start: 07-31-2025 Annual PCP Team Chronic Disease Visit Annual PCP Team Chronic Disease Visit [facility] Start: 07-31-2025 BP Controlled (<130/80) BP Controlled (<130/80) [facility] Start: 05-29-2025 Annual PCP Team Chronic Disease Visit Annual PCP Team Chronic Disease Visit [facility] Start: 05-29-2025 BP Controlled (<130/80) BP Controlled (<130/80) [facility] Start: 05-06-2025 End: 05-06-2025 Patient encounter procedure 05/06/2025 1:40 PM EDT Office Visit [facility] [place] [address] [place] [address] Valeriano Beasley MD [address] [place] [address] [phone] medicare wellness [facility] [place] Comment on above: medicare wellness Start: 05-01-2025 Annual PCP Team Chronic Disease Visit Annual PCP Team Chronic Disease Visit [facility] Start: 05-01-2025 BP Controlled (<130/80) BP Controlled (<130/80) [facility] Start: 04-24-2025 End: 04-24-2025 ambulatory [place] [facility] Comment on above: CBC/CMP/Myeloma labs with urine* OV* Start: 04-16-2025 End: 04-16-2025 Patient encounter procedure 04/16/2025 11:30 AM EDT Office Visit Neurology [address] [place] [address] Tayler Ellis PA-C [address] [place] [address] 3 month follow up, Neuropathy - Gabapentin Neurology Comment on above: 3 month follow up, Neuropathy - Gabapent in Start: 04-13-2025 DIABETES SCREEN DIABETES SCREEN [facility] Start: 04-04-2025 Annual PCP Team Chronic Disease Visit Annual PCP Team Chronic Disease Visit [facility] Start: 04-04-2025 Hepatitis B surface antibody level LDL Cholesterol [facility] Start: 03-24-2025 Influenza vaccination Influenza Vaccine (#1) [facility] Start: 01-23-2025 Admission procedure [facility] Start: 01-23-2025 Verification routine [facility] Start: 01-23-2025 Hospital admission, emergency, from emergency room, medical nature [facility] Start: 12-30-2024 Patient discharge [facility] Start: 12-30-2024 Care planning and problem solving actions [facility] Start: 12-29-2024 Bacteria identified in Blood by Culture Blood Culture [facility] Start: 12-29-2024 [facility] Start: 12-29-2024 Following clinical pathway protocol [facility] Start: 12-29-2024 Oxygen therapy [facility] Start: 12-29-2024 [facility] Start: 12-28-2024 Microscopic observation [Identifier] in Unspecified specimen by Gram stain [facility] Start: 12-28-2024 Respiratory microbial culture Respiratory Culture [facility] Start: 12-27-2024 Following clinical pathway protocol [facility] Start: 12-27-2024 Assessment of risk of venous thromboembolism [facility] Start: 12-27-2024 Consultation [facility] Start: 12-27-2024 Continuous pulse oximetry [facility] Start: 12-27-2024 Elevation of head of bed [facility] Start: 12-27-2024 Insertion of catheter into peripheral vein [facility] Start: 12-27-2024 Measuring intake and output [facility] Start: 12-27-2024 Patient referral to dietitian [facility] Start: 12-27-2024 Providing care according to standard [facility] Start: 12-27-2024 Referral to service [facility] Start: 12-27-2024 Removal of urinary catheter [facility] Start: 12-27-2024 Vital signs measurements [facility] Start: 12-27-2024 [facility] Start: 12-27-2024 Hospital admission, emergency, from emergency room, medical nature [facility] Start: 12-27-2024 Verification routine [facility] Start: 12-27-2024 Airway suction technique [facility] Start: 12-27-2024 Microscopic observation [Identifier] in Unspecified specimen by Gram stain [facility] Start: 12-27-2024 Respiratory Culture Respiratory Culture [facility] Start: 12-27-2024 Admission procedure [facility] Start: 12-27-2024 Creatine kinase [Enzymatic activity/volume] in Serum or Plasma [facility] Start: 12-27-2024 Triglycerides measurement [facility] Start: 12-27-2024 End: 12-28-2024 [facility] Start: 12-27-2024 [facility] Start: 12-23-2024 End: 03-24-2025 Cobalamin (Vitamin B12) [Mass/volume] in Serum or Plasma [facility] Work Phone: Comment on above: Expected: 12/23/2024, Expires: Start: 12-23-2024 End: 12-23-2024 Patient encounter procedure 12/23/2024 2:00 PM EDT Office Visit Neurology [address] [place] [id number] Patria Khanna Jr., MD [address] [place] [address] 8 WEEK FOLLOW UP Neurology Comment on above: 8 WEEK FOLLOW UP Start: 11-06-2024 End: 11-06-2024 Patient encounter procedure 11/06/2024 11:30 AM EDT Appointment Radiology [address] [place] [address] Dx: Screening for abdominal aortic aneurysm [Z13.6] Radiology Comment on above: Dx: Screening for abdominal aortic aneur ysm [Z13.6] Start: 11-01-2024 End: 11-01-2024 Patient encounter procedure 11/01/2024 11:00 AM EDT Office Visit [facility] [address] [facility] [place] [address] Ni Sauceda APRN.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 MANAGER [address] [facility] [place] [address] 6 month routine follow up [facility] Comment on above: 6 month routine follow up Start: 10-30-2024 End: 01-29-2025 25-hydroxyvitamin D3 [Mass/volume] in Serum or Plasma VITAMIN D 25 HYDROXY Lab Routine Low vitamin D level Expected: 10/30/2024, Expires: 01/29/2025 [facility] Comment on above: Expected: 10/30/2024, Expires: Start: 10-30-2024 End: 01-29-2025 CBC W Auto Differential panel - Blood COMPLETE BLOOD COUNT AND DIFFERENTIAL Lab Routine Essential hypertension, benign Expected: 10/30/2024, Expires: 01/29/2025 [facility] Comment on above: Expected: 10/30/2024, Expires: Start: 10-30-2024 End: 01-29-2025 Cobalamin (Vitamin B12) [Mass/volume] in Serum or Plasma VITAMIN B12 Lab Routine Low serum vitamin B12 Expected: 10/30/2024, Expires: 01/29/2025 [facility] Comment on above: Expected: 10/30/2024, Expires: Start: 10-30-2024 End: 01-29-2025 Comprehensive metabolic 2000 panel - Serum or Plasma COMPREHENSIVE METABOLIC PANEL Lab Routine Essential hypertension, benign Expected: 10/30/2024, Expires: 01/29/2025 [facility] Comment on above: Expected: 10/30/2024, Expires: Start: 10-30-2024 Covid-19 Vaccine () Covid-19 Vaccine () [facility] Start: 10-30-2024 End: 01-29-2025 LIPID PANEL, NONFASTING LIPID PANEL, NONFASTING Lab Routine Mixed hyperlipidemia Expected: 10/30/2024, Expires: 01/29/2025 [facility] Comment on above: Expected: 10/30/2024, Expires: Start: 10-30-2024 End: 01-29-2025 Prostate Specific Ag Free [Mass/volume] in Serum or Plasma PROSTATE SPECIFIC ANTIGEN, FREE Lab Routine Elevated PSA Expected: 10/30/2024, Expires: 01/29/2025 [facility] Comment on above: Expected: 10/30/2024, Expires: Start: 10-30-2024 End: 01-29-2025 Urate [Mass/volume] in Serum or Plasma URIC ACID Lab Routine Gout without tophus Expected: 10/30/2024, Expires: 01/29/2025 [facility] Work Phone: Comment on above: Expected: 10/30/2024, Expires: Start: 10-30-2024 End: 01-29-2025 Urinalysis complete panel - Urine URINALYSIS, WITH MICROSCOPIC Lab Routine Essential hypertension, benign Expected: 10/30/2024, Expires: 01/29/2025 [facility] Comment on above: Expected: 10/30/2024, Expires: Start: 10-30-2024 End: 10-30-2024 ambulatory 10/30/2024 11:00 AM EDT Results Only [facility] [address] [place] [address] Lab [facility] Comment on above: Lab Start: 10-23-2024 End: 10-23-2024 ambulatory 10/23/2024 11:10 AM EDT Visit (SP) Office Hematology/Oncology [address] [place] [address] Stephanie Roy DO [address] [place] [address] OV/LAB&24 HR URINE 10/21* Hematology/Oncology Comment on above: OV/LAB&24 HR URINE 10/21* Start: 10-21-2024 End: 10-21-2024 ambulatory 10/21/2024 11:00 AM EDT Results Only [place] [facility] [address] [place] [address] LAB/24 HR URINE [facility] Laboratory Comment on above: LAB/24 HR URINE Start: 10-18-2024 Annual PCP Team Chronic Disease Visit Annual PCP Team Chronic Disease Visit [facility] Start: 10-16-2024 Hepatitis B surface antibody level LDL Cholesterol [facility] Start: 10-03-2024 End: 10-03-2024 Patient encounter procedure 10/03/2024 11:00 AM EDT Office Visit [facility] [place] [address] [facility] [place] [id number] Ni Sauceda APRN.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 MANAGER [address] [place] [place] [address] 6 month routine follow up [facility] [place] Comment on above: 6 month routine follow up Start: 09-27-2024 End: 12-27-2024 Calcium.ionized [Moles/volume] in Blood CALCIUM, IONIZED Lab Routine Hypercalcemia Expected: 09/27/2024, Expires: 12/27/2024 [facility] Work Phone: Comment on above: Expected: 09/27/2024, Expires: Start: 09-25-2024 End: 12-25-2024 Cobalamin (Vitamin B12) [Mass/volume] in Serum or Plasma [facility] Comment on above: Expected: 09/25/2024, Expires: Start: 09-25-2024 End: 12-25-2024 COPPER BLOOD [facility] Comment on above: Expected: 09/25/2024, Expires: Start: 09-25-2024 End: 12-25-2024 Folate [Mass/volume] in Serum or Plasma [facility] Comment on above: Expected: 09/25/2024, Expires: Start: 09-25-2024 End: 09-25-2024 [facility] visit new patient 09/25/2024 2:00 PM EST Visit (SP) Office Hematology/Oncology [address] [place], [place] [id number] Stephanie Roy DO [address] [place] [address] NEW PATIENT Hematology/Oncology Comment on above: NEW PATIENT Start: 09-25-2024 End: 12-25-2024 Methylmalonate [Moles/volume] in Serum or Plasma [facility] Comment on above: Expected: 09/25/2024, Expires: Start: 09-25-2024 End: 12-25-2024 MONOCLONAL PROT UR W/[facility] Comment on above: Expected: 09/25/2024, Expires: Start: 09-25-2024 End: 12-25-2024 MONOCLONAL PROTEIN, SERUM (BLOOD) [facility] Comment on above: Expected: 09/25/2024, Expires: Start: 09-25-2024 End: 12-25-2024 PROTEIN ELECT RND UR W/[facility] Comment on above: Expected: 09/25/2024, Expires: Start: 09-25-2024 End: 12-25-2024 PROTEIN ELECTROPHORESIS SERUM W/[facility] Work Phone: Comment on above: Expected: 09/25/2024, Expires: Start: 09-03-2024 End: 09-03-2024 ambulatory 09/03/2024 3:10 PM EST [facility] Rheumatology [address] [address] Nyla De Jesus DO [address] [place] [address] Positive GALLO (antinuclear antibody) [R76.8] Rheumatology Comment on above: Positive GALLO (antinuclear antibody) [R76 .8] Start: 09-03-2024 End: 12-03-2024 C reactive protein [Mass/volume] in Serum or Plasma C-REACTIVE PROTEIN Lab Routine Positive GALLO (antinuclear antibody) Expected: 09/03/2024, Expires: 12/03/2024 [facility] Comment on above: Expected: 09/03/2024, Expires: Start: 09-03-2024 End: 12-03-2024 CBC W Auto Differential panel - Blood COMPLETE BLOOD COUNT AND DIFFERENTIAL Lab Routine Positive GALLO (antinuclear antibody) Expected: 09/03/2024, Expires: 12/03/2024 [facility] Comment on above: Expected: 09/03/2024, Expires: Start: 09-03-2024 End: 12-03-2024 Complement C3 [Mass/volume] in Serum or Plasma C3 COMPLEMENT Lab Routine Positive GALLO (antinuclear antibody) Expected: 09/03/2024, Expires: 12/03/2024 [facility] Work Phone: Comment on above: Expected: 09/03/2024, Expires: Start: 09-03-2024 End: 12-03-2024 Complement C4 [Mass/volume] in Serum or Plasma C4 COMPLEMENT Lab Routine Positive GALLO (antinuclear antibody) Expected: 09/03/2024, Expires: 12/03/2024 [facility] Comment on above: Expected: 09/03/2024, Expires: Start: 09-03-2024 End: 12-03-2024 Comprehensive metabolic 2000 panel - Serum or Plasma COMPREHENSIVE METABOLIC PANEL Lab Routine Positive GALLO (antinuclear antibody) Expected: 09/03/2024, Expires: 12/03/2024 [facility] Comment on above: Expected: 09/03/2024, Expires: Start: 09-03-2024 End: 12-03-2024 DNA ANTIBODY DS BLD DNA ANTIBODY DS BLD Lab Routine Positive GALLO (antinuclear antibody) Expected: 09/03/2024, Expires: 12/03/2024 [facility] Comment on above: Expected: 09/03/2024, Expires: Start: 09-03-2024 End: 12-03-2024 Erythrocyte sedimentation rate SEDIMENTATION RATE, WESTERGREN Lab Routine Positive GALLO (antinuclear antibody) Expected: 09/03/2024, Expires: 12/03/2024 [facility] Comment on above: Expected: 09/03/2024, Expires: Start: 08-30-2024 End: 08-30-2024 Patient encounter procedure Neurology Comment on above: f/u balance, abnormal ga it, numbness, neuropathy, hx of CAD, Hx of stent- RACHAEL 12/31 WJN, labs ordered, MRI, MRA x2 Start: 08-30-2024 End: 11-29-2024 KAPPA/NEUMANN,FREE,SER [facility] Comment on above: Expected: 08/30/2024, Expires: Start: 08-30-2024 End: 11-29-2024 PROTEIN ELECTROPHORESIS SERUM W/INTERP [facility] Work Phone: Comment on above: Expected: 08/30/2024, Expires: Start: 08-19-2024 End: 08-19-2024 Patient encounter procedure 08/19/2024 1:30 PM EST Office Visit Allergy [address] [address] Arun Christian, [address] [place] [address] Angioedema, subsequent encounter [T78.3XXD] Allergy Comment on above: Angioedema, subsequent encounter [T78.3X XD] Start: 07-24-2024 Advance Directive Discussion Advance Directive Discussion [facility] Start: 07-24-2024 Medicare Advantage Annual Wellness Visit Medicare Advantage Annual Wellness Visit [facility] Start: 07-18-2024 [facility] Start: 07-12-2024 End: 07-12-2024 Patient encounter procedure 07/12/2024 4:40 PM EST Office Visit Neurology [address] [place] [address] Patria Khanna Jr., MD [address] [phone] follow up Neurology Comment on above: follow up Start: 07-10-2024 Annual PCP Team Chronic Disease Visit Annual PCP Team Chronic Disease Visit [facility] Start: 05-29-2024 End: 05-29-2024 Patient encounter procedure 05/29/2024 1:00 PM EST Office Visit Family [facility] [place] [address] [place] [address] Suzanna Dawson PA-C [address] [place] [address] bp recheck [facility] [place] Comment on above: bp recheck Start: 05-18-2024 Annual PCP Team Chronic Disease Visit Annual PCP Team Chronic Disease Visit [facility] Start: 05-01-2024 End: 05-01-2024 Patient encounter procedure 05/01/2024 1:00 PM EDT Office Visit Family [facility] [place] [address] [place] [address] Suzanna Dawson PA-C [address] [place] [address] Medicare Wellness (rescheduled from 04/24 with PCP) [facility] [place] Comment on above: Medicare Wellness (rescheduled from 04/24 with PCP) Start: 04-24-2024 End: 04-24-2024 Patient encounter procedure 04/24/2024 1:00 PM EDT Office Visit [facility] [place] [address] [place] [address] Valeriano Beasley MD [address] [place] [address] Medicare Wellness [facility] [place] Comment on above: Medicare Wellness Start: 04-20-2024 Annual PCP Team Chronic Disease Visit Annual PCP Team Chronic Disease Visit [facility] Start: 04-20-2024 Covid-19 Vaccine () Covid-19 Vaccine () [facility] Comment on above: Postponed from 03/24/2023 (Not Currently Available) Start: 04-20-2024 Covid-19 Vaccine (3 - Booster for Soy series) Covid-19 Vaccine (3 - Booster for Soy series) [facility] Comment on above: Postponed from 07/22/2021 (Not Currently Available) Start: 04-20-2024 Shingrix Vaccine (1 of 2) Shingrix Vaccine (1 of 2) [facility] Comment on above: Postponed from 2000 (Insurance Cov erage) Start: 04-20-2024 Urine microalbumin profile DTaP,Tdap,Td Vaccine (2 - Td or Tdap) [facility] Comment on above: Postponed from 03/04/2018 (Insurance Cov erage) Start: 04-14-2024 Hepatitis B surface antibody level LDL Cholesterol [facility] Start: 04-04-2024 End: 04-04-2024 Patient encounter procedure 04/04/2024 11:40 AM EDT Office Visit [facility] [address] [place] [address] Ni Sauceda APRN.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 MANAGER [address] [place] [address] ER Follow [facility] Monday03/29/2024 Tongue Swelling [facility] Comment on above: ER Follow [facility] Monday03/29/2024 Tongue Swelling Start: 03-24-2024 Covid-19 Vaccine ( season) Covid-19 Vaccine ( season) [facility] Start: 03-24-2024 Covid-19 Vaccine ( season) Covid-19 Vaccine ( season) [facility] Start: 03-24-2024 Influenza vaccination [facility] Start: 03-15-2024 DIABETES SCREEN DIABETES SCREEN [facility] Start: 02-07-2024 End: 05-08-2024 CREATININE BLD CREATININE BLD Lab Routine Nephropathy screen Expected: 02/07/2024, Expires: 05/08/2024 [facility] Comment on above: Expected: 02/07/2024, Expires: Start: 02-06-2024 End: 02-06-2024 Patient encounter procedure Radiology Comment on above: Other symptoms and signs involving the n ervous system [R29.818] Start: 01-01-2024 End: 01-01-2024 Patient encounter procedure 01/01/2024 3:40 PM EDT Office Visit Neurology [address] [facility] [place] [address] Patria Khanna Jr., [place] [address] [facility] [address] [place] [phone] Balance problems [R26.89] Neurology Comment on above: Balance problems [R26.89] Start: 01-01-2024 End: 04-01-2024 GALLO BY IFA WITH REFLEX GALLO BY IFA WITH REFLEX Lab Routine Balance problems Neuropathy Abnormality of gait Expected: 01/01/2024, Expires: 04/01/2024 [facility] Comment on above: Expected: 01/01/2024, Expires: Start: 01-01-2024 End: 04-01-2024 Erythrocyte sedimentation rate SEDIMENTATION RATE, WESTERGREN Lab Routine Balance problems Neuropathy Abnormality of gait Expected: 01/01/2024, Expires: 04/01/2024 [facility] Comment on above: Expected: 01/01/2024, Expires: Start: 01-01-2024 End: 04-01-2024 HEAVY METALS SCRN BL HEAVY METALS SCRN BL Lab Routine Balance problems Neuropathy Abnormality of gait Expected: 01/01/2024, Expires: 04/01/2024 [facility] Work Phone: Comment on above: Expected: 01/01/2024, Expires: 4 Start: 01-01-2024 End: 04-01-2024 Methylmalonate [Moles/volume] in Serum or Plasma METHYLMALONIC ACID Lab Routine Balance problems Neuropathy Abnormality of gait Expected: 01/01/2024, Expires: 04/01/2024 [facility] Comment on above: Expected: 01/01/2024, Expires: Start: 01-01-2024 End: 04-01-2024 PROTEIN ELECTROPHORESIS SERUM W/INTERP PROTEIN ELECTROPHORESIS SERUM W/INTERP Lab Routine Balance problems Neuropathy Abnormality of gait Expected: 01/01/2024, Expires: 04/01/2024 [facility] Comment on above: Expected: 01/01/2024, Expires: Start: 01-01-2024 End: 04-01-2024 Pyridoxine [Mass/volume] in Serum or Plasma VITAMIN B6/PYRIDOXIN Lab Routine Balance problems Neuropathy Abnormality of gait Expected: 01/01/2024, Expires: 04/01/2024 [facility] Comment on above: Expected: 01/01/2024, Expires: Start: 10-17-2023 End: 01-16-2024 Cobalamin (Vitamin B12) [Mass/volume] in Serum or Plasma [facility] Work Phone: Comment on above: Expected: 10/17/2023, Expires: Start: 10-17-2023 End: 01-16-2024 Comprehensive metabolic 2000 panel - Serum or Plasma [facility] Work Phone: Comment on above: Expected: 10/17/2023, Expires: Start: 10-17-2023 End: 01-16-2024 LIPID PANEL, NONFASTING [facility] Work Phone: Comment on above: Expected: 10/17/2023, Expires: Start: 10-17-2023 End: 01-16-2024 Prostate Specific Ag Free [Mass/volume] in Serum or Plasma [facility] Work Phone: Comment on above: Expected: 10/17/2023, Expires: Start: 10-17-2023 End: 01-16-2024 Urate [Mass/volume] in Serum or Plasma [facility] Work Phone: Comment on above: Expected: 10/17/2023, Expires: Start: 10-13-2023 ANNUAL PCP TEAM CHRONIC DISEASE VISIT ANNUAL PCP TEAM CHRONIC DISEASE VISIT [facility] Start: 10-06-2023 Hepatitis B surface antibody level LDL CHOLESTEROL [facility] Start: 09-14-2023 ANNUAL PCP TEAM CHRONIC DISEASE VISIT ANNUAL PCP TEAM CHRONIC DISEASE VISIT [facility] Start: 09-14-2023 BP CONTROLLED (<130/80) BP CONTROLLED (<130/80) [facility] Start: 09-14-2023 Hepatitis B surface antibody level LDL CHOLESTEROL [facility] Start: 08-21-2023 End: 11-20-2023 CREATININE BLD CREATININE BLD Lab Routine Essential hypertension, benign Kidney lesion Expected: 08/21/2023, Expires: 11/20/2023 [facility] Work Phone: Comment on above: Expected: 08/21/2023, Expires: 4 Start: 07-24-2023 Advance Directive Discussion Advance Directive Discussion [facility] Start: 04-18-2023 ANNUAL PCP TEAM CHRONIC DISEASE VISIT ANNUAL PCP TEAM CHRONIC DISEASE VISIT [facility] Start: 04-18-2023 SHINGRIX VACCINE (1 of 2) SHINGRIX VACCINE (1 of 2) [facility] Comment on above: Postponed from 2000 (Insurance Cov erage) Start: 04-18-2023 Urine microalbumin profile DTAP,TDAP,TD (2 - Td or Tdap) [facility] Comment on above: Postponed from 03/04/2018 (Insurance Cov erage) Start: 04-14-2023 End: 06-14-2023 25-hydroxyvitamin D3 [Mass/volume] in Serum or Plasma VITAMIN D 25 HYDROXY Lab Routine Low vitamin D level Expected: 04/14/2023, Expires: 06/14/2023 [facility] Work Phone: Comment on above: Expected: 04/14/2023, Expires: 3 Start: 04-14-2023 End: 06-14-2023 CBC W Auto Differential panel - Blood CBC + DIFF Lab Routine Essential hypertension, benign NSTEMI (non-ST elevated myocardial infarction) (HCC) Coronary artery disease due to lipid rich plaque Expected: 04/14/2023, Expires: 06/14/2023 [facility] Work Phone: Comment on above: Expected: 04/14/2023, Expires: 3 Start: 04-14-2023 End: 06-14-2023 Comprehensive metabolic 2000 panel - Serum or Plasma COMP METABOLIC PANEL Lab Routine Essential hypertension, benign Expected: 04/14/2023, Expires: 06/14/2023 [facility] Work Phone: Comment on above: Expected: 04/14/2023, Expires: 3 Start: 04-14-2023 End: 06-14-2023 LIPID PANEL, NONFASTING LIPID PANEL, NONFASTING Lab Routine Mixed hyperlipidemia Expected: 04/14/2023, Expires: 06/14/2023 [facility] Work Phone: Comment on above: Expected: 04/14/2023, Expires: 3 Start: 04-14-2023 End: 06-14-2023 Prostate Specific Ag Free [Mass/volume] in Serum or Plasma PSA FREE Lab Routine Elevated PSA Expected: 04/14/2023, Expires: 06/14/2023 [facility] Work Phone: Comment on above: Expected: 04/14/2023, Expires: 3 Start: 04-14-2023 End: 06-14-2023 Urate [Mass/volume] in Serum or Plasma URIC ACID BLOOD Lab Routine Gout without tophus Expected: 04/14/2023, Expires: 06/14/2023 [facility] Work Phone: Comment on above: Expected: 04/14/2023, Expires: 3 Start: 04-14-2023 End: 06-14-2023 Urinalysis complete panel - Urine URINALYSIS, WITH MICROSCOPIC Lab Routine Essential hypertension, benign Expected: 04/14/2023, Expires: 06/14/2023 [facility] Work Phone: Comment on above: Expected: 04/14/2023, Expires: 3 Start: 04-13-2023 Hepatitis B surface antibody level LDL CHOLESTEROL [facility] Start: 03-24-2023 Influenza vaccination INFLUENZA (Season Ended) [facility] Start: 12-06-2022 ANNUAL PCP TEAM CHRONIC DISEASE VISIT ANNUAL PCP TEAM CHRONIC DISEASE VISIT [facility] Start: 10-12-2022 End: 12-12-2022 CBC W Auto Differential panel - Blood [facility] Work Phone: Comment on above: Expected: 10/12/2022, Expires: 3 Start: 10-12-2022 End: 12-12-2022 Iron and Iron binding capacity panel - Serum or Plasma [facility] Work Phone: Comment on above: Expected: 10/12/2022, Expires: 3 Start: 10-07-2022 End: 12-07-2022 Hepatic function 2000 panel - Serum or Plasma HEPATIC FUNCTION PNL Lab Routine Essential hypertension, benign Mixed hyperlipidemia Expected: 10/07/2022, Expires: 12/07/2022 [facility] Work Phone: Comment on above: Expected: 10/07/2022, Expires: 3 Start: 10-07-2022 End: 12-07-2022 LIPID PANEL, NONFASTING LIPID PANEL, NONFASTING Lab Routine Essential hypertension, benign Mixed hyperlipidemia Coronary artery disease due to lipid rich plaque Expected: 10/07/2022, Expires: 12/07/2022 [facility] Work Phone: Comment on above: Expected: 10/07/2022, Expires: 3 Start: 10-07-2022 End: 12-07-2022 Prostate Specific Ag Free [Mass/volume] in Serum or Plasma PSA FREE Lab Routine Elevated PSA Expected: 10/07/2022, Expires: 12/07/2022 [facility] Work Phone: Comment on above: Expected: 10/07/2022, Expires: 3 Start: 09-10-2022 Patient discharge [facility] Start: 09-10-2022 Patient discharge [facility] Start: 09-07-2022 Referral to occupational therapist [facility] Start: 09-07-2022 Referral to service [facility] Start: 09-06-2022 Patient referral [facility] Work Phone: Start: 09-06-2022 Notification of physician [facility] Start: 09-06-2022 Patient education [facility] Start: 09-06-2022 Provision of activity privileges [facility] Start: 09-06-2022 Pulse taking [facility] Start: 09-06-2022 Taking patient vital signs [facility] Start: 09-06-2022 Wound care [facility] Start: 09-06-2022 [facility] Start: 09-04-2022 End: 09-05-2022 [facility] Start: 09-04-2022 Administration of blood product [facility] Start: 09-04-2022 Administration of blood product [facility] Start: 09-04-2022 Catheterization of vein [facility] Start: 09-04-2022 Administration of blood product [facility] Start: 09-04-2022 Catheterization of vein [facility] Start: 09-04-2022 Medication not administered [facility] Start: 09-04-2022 Notification of physician [facility] Start: 09-03-2022 Chart related administrative procedure [facility] Start: 09-03-2022 Referral to administrative assistant receptionist [facility] Start: 09-02-2022 Application of intermittent pneumatic compression device [facility] Start: 09-02-2022 [facility] Start: 09-02-2022 Assessment of risk of venous thromboembolism [facility] Start: 09-02-2022 Fall prevention [facility] Start: 09-02-2022 Inhalation therapy procedure [facility] Start: 09-02-2022 Insertion of catheter into peripheral vein [facility] Start: 09-02-2022 Introduction of urinary catheter [facility] Start: 09-02-2022 Measuring intake and output [facility] Start: 09-02-2022 Providing care according to standard [facility] Start: 09-02-2022 Provision of activity privileges [facility] Start: 09-02-2022 Referral to gastroenterology service [facility] Start: 09-02-2022 Referral to service [facility] Start: 09-02-2022 [facility] Start: 09-02-2022 End: 09-02-2022 Following clinical pathway protocol [facility] Start: 09-02-2022 Admission procedure [facility] Start: 09-02-2022 Patient referral to dietitian [facility] Start: 07-24-2022 ADVANCE DIRECTIVE DISCUSSION ADVANCE DIRECTIVE DISCUSSION [facility] Start: 07-24-2022 DEPRESSION ASSESSMENT DEPRESSION ASSESSMENT [facility] Start: 05-25-2022 Patient referral to dietitian [facility] Start: 04-12-2022 End: 06-12-2022 25-hydroxyvitamin D3 [Mass/volume] in Serum or Plasma VITAMIN D 25 HYDROXY Lab Routine Low vitamin D level Expected: 04/12/2022, Expires: 06/12/2022 [facility] Work Phone: Comment on above: Expected: 04/12/2022, Expires: 2 Start: 04-12-2022 End: 06-12-2022 CBC W Auto Differential panel - Blood CBC + DIFF Lab Routine Medication management Expected: 04/12/2022, Expires: 06/12/2022 [facility] Work Phone: Comment on above: Expected: 04/12/2022, Expires: 2 Start: 04-12-2022 End: 06-12-2022 Comprehensive metabolic 2000 panel - Serum or Plasma COMP METABOLIC PANEL Lab Routine Essential hypertension, benign Mixed hyperlipidemia Expected: 04/12/2022, Expires: 06/12/2022 [facility] Work Phone: Comment on above: Expected: 04/12/2022, Expires: 2 Start: 04-12-2022 End: 06-12-2022 LIPID PANEL, NONFASTING LIPID PANEL, NONFASTING Lab Routine Coronary artery disease due to lipid rich plaque Essential hypertension, benign Mixed hyperlipidemia Expected: 04/12/2022, Expires: 06/12/2022 [facility] Work Phone: Comment on above: Expected: 04/12/2022, Expires: 2 Start: 04-12-2022 End: 06-12-2022 Prostate Specific Ag Free [Mass/volume] in Serum or Plasma PSA FREE Lab Routine Elevated PSA Expected: 04/12/2022, Expires: 06/12/2022 [facility] Work Phone: Comment on above: Expected: 04/12/2022, Expires: 2 Start: 04-12-2022 End: 06-12-2022 Urate [Mass/volume] in Serum or Plasma URIC ACID BLOOD Lab Routine Gout without tophus Expected: 04/12/2022, Expires: 06/12/2022 [facility] Work Phone: Comment on above: Expected: 04/12/2022, Expires: 2 Start: 04-12-2022 End: 06-12-2022 Urinalysis complete panel - Urine URINALYSIS, WITH MICROSCOPIC Lab Routine Essential hypertension, benign Mixed hyperlipidemia Expected: 04/12/2022, Expires: 06/12/2022 [facility] Work Phone: Comment on above: Expected: 04/12/2022, Expires: 2 Start: 03-25-2022 Patient referral to dietitian [facility] Work Phone: Start: 03-24-2022 Influenza vaccination [facility] Start: 03-15-2022 ANNUAL PCP TEAM CHRONIC DISEASE VISIT ANNUAL PCP TEAM CHRONIC DISEASE VISIT [facility] Start: 03-15-2022 BP CONTROLLED (<130/80) BP CONTROLLED (<130/80) [facility] Start: 03-15-2022 Hepatitis B surface antibody level LDL CHOLESTEROL [facility] Start: 03-15-2022 SHINGRIX VACCINE (1 of 2) SHINGRIX VACCINE (1 of 2) [facility] Comment on above: Postponed from 2000 (Insurance Cov erage) Start: 03-15-2022 Urine microalbumin profile DTAP,TDAP,TD (2 - Td or Tdap) [facility] Comment on above: Postponed from 03/04/2018 (Insurance Cov erage) Start: 09-24-2021 COVID-19 VACCINE (3 - Booster for Soy series) COVID-19 VACCINE (3 - Booster for Soy series) [facility] Start: 07-24-2021 ADVANCE DIRECTIVE DISCUSSION ADVANCE DIRECTIVE DISCUSSION [facility] Start: 07-24-2021 DEPRESSION ASSESSMENT DEPRESSION ASSESSMENT [facility] Start: 07-22-2021 COVID-19 VACCINE (3 - Booster for Soy series) COVID-19 VACCINE (3 - Booster for Soy series) [facility] Start: 11-26-2020 COVID-19 VACCINE (2 - Booster for Soy series) COVID-19 VACCINE (2 - Booster for Soy series) [facility] Start: 03-04-2018 Urine microalbumin profile [facility] Start: 03-08-2017 FECAL OCCULT BLOOD FECAL OCCULT BLOOD [facility] Start: 03-08-2017 Screening for malignant neoplasm of colon Fecal Occult Blood [facility] Start: 2010 Hepatitis B Vaccine (1 of 3 - Risk 3-dose series) Hepatitis B Vaccine (1 of 3 - Risk 3-dose series) [facility] Start: 2010 RSV Vaccine (1 - 1-dose 60+ series) RSV Vaccine (1 - 1-dose 60+ series) [facility] Start: 2010 RSV Vaccine (1 - Risk 60-74 years 1-dose series) RSV Vaccine (1 - Risk 60-74 years 1-dose series) [facility] Start: 2000 SHINGRIX VACCINE (1 of 2) SHINGRIX VACCINE (1 of 2) [facility] Start: 10-20-1995 COLOGUARD (FIT-DNA) COLOGUARD (FIT-DNA) [facility] Start: 10-20-[address] COLONOGRAPHY [facility] Start: 10-20-1995 Screening for malignant neoplasm of colon [facility] Start: 10-20-1995 SIGMOIDOSCOPY SIGMOIDOSCOPY [facility] Start: 1969 Hepatitis A Vaccine (1 of 2 - Risk 2-dose series) Hepatitis A Vaccine (1 of 2 - Risk 2-dose series) [facility] Start: 1950 Abdominal aortic aneurysm screening Abdominal Aortic Aneurysm Screening [facility] Bacteria identified in Sputum by Respiratory culture [facility] Bilirubin measuremen t, urine [facility] Blood ammonia measurement [facility] C reactive protein [Mass/volume] in Serum or Plasma [facility] Calculus analysis [facility] CBC W Auto Different ial panel - Blood [facility] Complement C1 estera se inhibitor.functional/Comp lement C1 esterase inhibitor.total in Serum or Plasma [facility] Comprehensive metabo lic 2000 panel - Serum or Plasma [facility] End: 09-19-2024 Ct abdomen w/o & w/contrast material CT KIDNEY WO/W IVCON Radiology Routine Other specified disorders of kidney and ureter Kidney lesion 1 Occurrences starting 08/21/2023 until 09/19/2024 [facility] Work Phone: Comment on above: 1 Occurrences starting 08/21/2023 until 09/19/2024 Ct abdomen w/o & w/contrast material CT KIDNEY WO/W IVCON Radiology Routine Other specified disorders of kidney and ureter Kidney lesion 08/28/2023 11:58 AM EST [facility] Work Phone: End: 03-08-2025 CT Neck W contrast IV [facility] Comment on above: 1 Occurrences starting 02/07/2024 until 03/08/2025 End: 03-08-2025 CTA Head Arteries W contrast IV [facility] Work Phone: Comment on above: 1 Occurrences starting 02/07/2024 until 03/08/2025 Folate [Moles/volume ] in Serum or Plasma [facility] Hemoglobin [Presence ] in Urine [facility] Hepatitis A virus Ig M Ab [Presence] in Serum [facility] Hepatitis B core ant ibody measurement, IgM type [facility] Hepatitis B surface antigen measurement [facility] Hepatitis C antibody measurement [facility] IgE [Units/volume] i n Serum or Plasma [facility] Lipid 1996 panel - S rosana or Plasma [facility] Magnesium measurement [facility] Measurement of keton es in urine using dipstick [facility] Measurement of weigh t of calculus [facility] Microscopic urinalysis [facility] [place] MONOCLONAL PROT 24 U R W/INTERP MONOCLONAL PROT 24 UR W/INTERP Lab Routine Hypercalcemia Monoclonal gammopathy Ordered: 09/27/2024 [facility] Comment on above: Ordered: 09/27/2024 End: 01-30-2025 MR Brain WO contrast MRI BRAIN WO IVCON Radiology Routine Other symptoms and signs involving the nervous system 1 Occurrences starting 01/01/2024 until 01/30/2025 [facility] Comment on above: 1 Occurrences starting 01/01/2024 until 01/30/2025 End: 01-30-2025 MRA Head vessels WO contrast MRA BRAIN WO IVCON Radiology Routine Other symptoms and signs involving the nervous system 1 Occurrences starting 01/01/2024 until 01/30/2025 [facility] Comment on above: 1 Occurrences starting 01/01/2024 until 01/30/2025 End: 01-30-2025 MRA Neck vessels WO contrast MRA CAROTID WO IVCON Radiology Routine Other symptoms and signs involving the nervous system 1 Occurrences starting 01/01/2024 until 01/30/2025 [facility] Comment on above: 1 Occurrences starting 01/01/2024 until 01/30/2025 [facility] Patient Education ED Angioedema [facility] Work Phone: Patient referral [facility] Work Phone: pH of Urine [facility] PROT ELEC UR 24HR W/ M SPIKE (P) PROT ELEC UR 24HR W/M SPIKE (P) Lab Routine Hypercalcemia Monoclonal gammopathy Ordered: 09/27/2024 [facility] Comment on above: Ordered: 09/27/2024 PROT ELEC UR 24HR W/ M SPIKE AND INTERP PROT ELEC UR 24HR W/M SPIKE AND INTERP Lab Routine Hypercalcemia Monoclonal gammopathy Ordered: 09/27/2024 [facility] Comment on above: Ordered: 09/27/2024 Protein [Mass/time] in 24 hour Urine PROTEIN, 24 HOUR URINE Lab Routine Hypercalcemia Monoclonal gammopathy Ordered: 09/27/2024 [facility] Comment on above: Ordered: 09/27/2024 Prothrombin time [facility] Removal impacted cer umen irrigation/lvg unilat AMBULATORY EAR LAVAGE/IRRIGATION Procedures Routine Excessive ear wax, right Ordered: 04/20/2023 [facility] Work Phone: Comment on above: Ordered: 04/20/2023 Specific gravity of Urine [facility] Specimen color determination [facility] Tryptase [Mass/volum e] in Serum or Plasma [facility] Urine blood test [facility] Urine dipstick for glucose [facility] Urine dipstick for leukocyte esterase [facility] Urine dipstick for nitrite [facility] Urine dipstick for protein [facility] Urine examination [facility] Urine microscopy: epithelial cells [facility] Urine Microscopy: wh ite cells [facility] Urobilinogen [Presen ce] in Urine [facility] End: 12-01-2025 US Abdominal Aorta for screening US SCREENING FOR AAA Radiology Routine Screening for abdominal aortic aneurysm 1 Occurrences starting 11/01/2024 until 12/01/2025 [facility] Work Phone: Comment on above: 1 Occurrences starting 11/01/2024 until 12/01/2025 US Carotid arteries [facility] Heart [facility] End: 11-22-2025 XR Bones Complete Survey Views XR BONE SURVEY ROUTINE Radiology Routine Monoclonal gammopathy 1 Occurrences starting 10/23/2024 until 11/22/2025 [facility] Work Phone: Comment on above: 1 Occurrences starting 10/23/2024 until 11/22/2025 XR Bones Complete Harry rvey Views XR BONE SURVEY ROUTINE Radiology Routine Monoclonal gammopathy 10/23/2024 2:49 PM EDT [facility] Immunizations Immunization Date Immunization Notes Care Provider [facility] 11-06-2024 respiratory syncytia l virus (RSV) vaccine, bivalent (ABRYSVO) Suzanna Dawson PA-C Work Phone: [facility] 11-06-2024 tetanus toxoid, redu el diphtheria toxoid, and acellular pertussis vaccine, adsorbed Suzanna Dawson PA-C Work Phone: [facility] 05-01-2024 COVID-19 vaccine, ag e 12+ yr ([employer] [facility]) Suzanna Dawson PA-C Work Phone: [facility] 05-01-2024 influenza, high dose seasonal, preservative-free Suzanna Dawson PA-C Work Phone: [facility] 05-01-2024 influenza virus vacc ine, unspecified formulation Nurse Wstr Work Phone: [facility] 04-20-2023 influenza (HD-IIV4) vaccine, age 65+ yr, high dose, quadrivalent, PF (FLUZONE HIGH-DOSE) Valeriano Beasley MD Work Phone: [facility] 04-20-2023 pneumococcal (PCV20) vaccine, 20 valent (PREVNAR 20) Valeriano Beasley MD Work Phone: [facility] 04-20-2023 pneumococcal Conjuga te, unspecified formulation Valeriano Beasley MD Work Phone: [facility] Work Phone: 04-20-2023 influenza virus vacc ine, unspecified formulation Valeriano Beasley MD Work Phone: [facility] 08-12-2019 influenza, high dose seasonal, preservative-free Ganesh White MA [facility] 08-01-2018 influenza, high dose seasonal, preservative-free Ganesh White MA [facility] 08-01-2018 pneumococcal conjuga te vaccine, 13 valent Ganesh Cindy MILLS [facility] 01-07-2016 pneumococcal polysaccharide vaccine, 23 valent Ganesh White MA [facility] 07-16-2013 influenza virus vacc ine, unspecified formulation Ganesh White MA [facility] 07-12-2011 influenza virus vacc ine, unspecified formulation Ganesh White MA [facility] 03-04-2008 tetanus toxoid, redu el diphtheria toxoid, and acellular pertussis vaccine, adsorbed Ganesh White [facility] Work Phone: 06-02-2005 influenza virus vacc ine, unspecified formulation Ganesh White [facility] Work Phone: Payers Date Payer Category Payer Self-pay 2022 Medicare (Managed Care) [facility] MEDICARE O [id number] 2022 Unknown [id number] 2022 Medicare [id number] 2022 Private Health Insurance [id number] 2021 Medicare HUMANA MEDICARE HUMANA GOLD PLUS [id number] 2021-[facility] [phone] [place] [id number] [facility] [id number] 2021 Medicare [id number] 1950 Unknown [id number] 2.16.840.1.505364.3.579. 2.627 1950 Unknown [id number] 2.16.840.1.744410.3.579. 2.627 1950 Unknown [id number] 2.16.840.1.561621.3.579. 2.627 Unknown [id number] Unknown [id number] 2.16.840.1.954651.3.579. 2.462 Unknown [id number] 2.16.840.1.292258.3.579. 2.462 Unknown [id number] 2.16.840.1.312679.3.579. 2.462 Unknown [id number] 2.16.840.1.666417.3.579. 2.462 Unknown [id number] 2.16.840.1.149445.3.579. 2.462 Unknown [id number] 2.16.840.1.311982.3.579. 2.462 Unknown [id number] 2.16.840.1.448690.3.579. 2.462 Unknown [id number] 2.16.840.1.466903.3.579. 2.462 Unknown [id number] 2.16.840.1.414466.3.579. 2.462 Unknown [id number] 2.16.840.1.619226.3.579. 2.462 Unknown [id number] 2.16.840.1.720920.3.579. 2.462 Unknown [id number] 2.16.840.1.441924.3.579. 2.462 Unknown [id number] 2.16.840.1.212086.3.579. 2.462 Unknown [id number] 2.16.840.1.231855.3.579. 2.462 Unknown [id number] 2.16.840.1.921658.3.579. 2.462 Unknown [id number] 2.16.840.1.960911.3.579. 2.462 Unknown [id number] 2.16.840.1.433856.3.579. 2.462 Unknown [id number] 2.16.840.1.638825.3.579. 2.462 Unknown [id number] 2.16.840.1.632667.3.579. 2.462 Unknown [id number] 2.16.840.1.158229.3.579. 2.462 Social History Date Type Detail Facility Tobacco smoking status [facility] Start: 1950 Sex Assigned At Male [facility] Start: 07-12-2011 End: 12-13-2021 Tobacco smoking status ILIS Never smoked tobacco [facility] Start: 03-17-2021 End: 01-01-2025 Alcohol intake Current drinker of alcohol (finding) [facility] Start: 1950 Sex Assigned At Not on file [facility] Start: 11-22-2021 End: 04-18-2022 Exposure to SARS-CoV-2 (event) Not sure [facility] Start: 12-05-2021 History SDOH Social Connections Phone 5 [facility] Start: 12-05-2021 History SDOH Social Connections Get Together 3 [facility] Start: 12-05-2021 History SDOH Social Connections Membership 1 [facility] Start: 12-05-2021 History SDOH Social Connections Meetings 2 [facility] Start: 12-05-2021 History SDOH Social Connections Living 4 [facility] Start: 03-25-2022 End: 09-05-2023 Tobacco smoking status NHIS Unknown if ever smoked [facility] Start: 07-12-2011 End: 09-03-2024 Tobacco use and exposure Smokeless tobacco non-user [facility] Start: 12-05-2021 End: 04-20-2023 History of Social function [facility] Start: 12-05-2021 End: 04-20-2023 Social connection and isolation panel [facility] Do you belong to any clubs or organizations such as orthodoxy groups, unions, fraternal or athletic groups, or school groups? Yes [facility] Are you now , , , , never or living with a partner? [facility] How often to you hav e a drink containing alcohol? Patient refused [facility] How hard is it for y ou to pay for the very basics like food, housing, medical care, and heating Somewhat hard [facility] (I/We) worried whemony er (my/our) food would run out before (I/we) got money to buy more. Never true [facility] In the past 12 month s, was there a time when you were not able to pay the mortgage or rent on time? No [facility] Start: 12-05-2021 Gender identity Identifies as male gender (finding) [facility] Start: 12-05-2021 Sexual orientation Heterosexual (finding) [facility] Start: 09-03-2024 End: 01-23-2025 Tobacco smoking status NHIS Ex-smoker [facility] History of tobacco use Current smoker [facility] History of tobacco use Cigarette Smoker C [facility] Start: 09-03-2024 Alcohol Comment 6 pack of beer a week on average [facility] Start: 10-04-2024 End: 11-11-2024 Sex Male (finding) [facility] Medical Equipment Procedure Code Equipment Code [...] Assessment Result Facility 12-30-2024 Functional status Chair [facility] Work Phone: 09-10-2022 Functional status Ambulates [facility] Work Phone: 01-27-2022 Functional Status Ambulating in [place], Ambulating in room [facility] 01-27-2022 Functional Status [facility] 01-27-2022 Functional Status [facility] 01-27-2022 Functional Status Room check performed [facility] 12-01-2021 Functional Status [facility] 12-01-2021 Functional Status [facility] 12-01-2021 Functional Status [facility] 12-01-2021 Functional Status [facility] 12-01-2021 Functional Status [facility] 12-01-2021 Functional Status [facility] 11-30-2021 Functional Status [facility] 11-30-2021 Functional Status [facility] [...] 12/08/2014 6:06 PM Ganesh Cochran MA No [facility] 12-08-2014 Are you blind, or do you have serious difficulty seeing, even when wearing glasses No 12/08/2014 6:06 PM Ganesh Cochran MA No [facility] 12-08-2014 Do you have serious difficulty walking or climbing stairs No 12/08/2014 6:06 PM Ganesh Cochran MA No [facility] 12-08-2014 Do you have difficul ty dressing or bathing No 12/08/2014 6:06 PM Ganesh Cochran MA No [facility] 12-08-2014 Because of a physica l, mental, or emotional condition, do you have difficulty doing errands alone such as visiting a physician's office or shopping No 12/08/2014 6:06 PM Ganesh Cochran MA No [facility] Mental Status Date Assessment Result Facility 12-29-2024 Cognitive function Voice/Name [facility] Work Phone: 12-28-2024 Cognitive function Sedated [facility] Work Phone: 09-10-2022 Cognitive function Voice/Name [facility] Work Phone: 01-27-2022 Mental Status Orientation Oriented x 4 [facility] 01-27-2022 Mental Status [facility] 01-27-2022 Mental Status [facility] 12-01-2021 Mental Status [facility] 12-01-2021 Mental Status [facility] 11-30-2021 Mental Status [facility] 11-29-2021 Mental Status [facility] 11-29-2021 Mental Status [facility] 12-08-2014 Because of a physica l, mental, or emotional condition, do you have serious difficulty concentrating, remembering, or making decisions No 12/08/2014 6:06 PM EDT Ganesh White MA No [facility] Clinical Notes 08-01-2018 to 01-23-2025 Telephone Encounter - Sean Abbasi RN - 01/23/2025 12:59 PM EDTTelephone Encounter - Sean Abbasi RN - 01/23/2025 12:59 PM EDTTelephone Encounter - Zakiya Spangler MA - 01/23/2025 11:57 AM EDT Note Date & Type Note Facility 01-23-2025 Telephone encounter Note See triage note. Pt agreeable to ER. [facility] 01-23-2025 Miscellaneous Notes See triage note. Pt agreeable to ER. Appt placed on Nurse Triage do due to no response from pt and message not being read. Want to get an update. Pt did not feel he needed an appt. Zakiya Spangler MA Asked pt additional questions prior to sending to PCP. Zakiya Spangler MA documented in this encounter [facility] 01-23-2025 Telephone encounter Note Pt reports [...] states he is going to appt with fiber optic splicer first. Reports he has had 5 episodes of tongue swelling since Jun and fiber optic splicer is going to help him with this. Pt states if rectal bleed starts again he will go straight to ER instead of allergy appt, otherwise he will go to allergy appt at 2 pm first. Phoned and spoke with nurse Mila at [facility] ER and given report. Advised pt [...] dizziness. Reports he feels pretty good. Hx [place] 2021- sometimes get short of breath on exertion. 10. : N/A Protocols used: Rectal [id number] [facility] 01-23-2025 Miscellaneous Notes Pt reports he's [...] states he is going to appt with fiber optic splicer first. Reports he has had 5 episodes of tongue swelling since Jun and fiber optic splicer is going to help him with this. Pt states if rectal bleed starts again he will go straight to ER instead of allergy appt, otherwise he will go to allergy appt at 2 pm first. Phoned and spoke with nurse Mila at [facility] ER and given report. Advised pt [...] dizziness. Reports he feels pretty good. Hx [place] 2021- sometimes get short of breath on exertion. 10. : N/A Protocols used: Rectal [id number] documented in this encounter [facility] 01-23-2025 Telephone encounter Note Appt placed on Nurse Triage do due to no response from pt and message not being read. Want to get an update. Pt did not feel he needed an appt. Zakiya Spangler MA [facility] 01-23-2025 Telephone encounter Note Asked pt additional questions prior to sending to PCP. Zakiya Spangler MA [facility] 01-01-2025 Note HNO ID: [id number] Author: SUZANNA DAWSON PA-C Service: ? Author Type: Physician Field Hand Type: Progress Notes Filed: 01/01/2025 12:06 Note [...] pharmacy and is scheduled to see an Cop Breaker on January 23. Prozac was discontinued by the hospitalist due to possible correlation with angioedema. 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 diphenhydrAMINE ( (more content not included)... [facility] 01-01-2025 History of Presen t illness Narrative [...] pharmacy and is scheduled to see an Cop Breaker on January 23. Prozac was discontinued by the hospitalist due to possible correlation with angioedema. 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 Will follow with them for further evaluation of angioedema episodes. Agrees to hold off on starting new medication for anxiety/depression until seeing the fiber optic splicer based off their recommendations. 2. Essential hypertension, benign - ICD9: 401.1, ICD10: I10 Well controlled, no new concerns. - AMLODIPINE 5 MG TABLET Patient to follow up as needed and as scheduled for routine. Milena REDDING I have personally seen and examined the patient and performed the medical-decision making components. I have reviewed the Physician Field Hand (PA) student's documentation and verified the findings in the note as written. Any additions or changes are noted in bold/italics. Suzanna Dawson PA-C documented in this encounter [facility] 12-30-2024 Discharge summary Note Date/Time December 30, 2024 9:04a [facility] Medical Records Department [address] [place] [address] Discharge Summary 12/30/24 0854 MR#: [id number] Acct: [id number] Name: NAZARIO HUTTON Rep #:[id number] : 1950 74 From: Alexi Olivas DO PCP: Dr. Valeriano Beasley MD Status:ADM IN Location: ICU ICU07-1 Providers Date of Admission: 12/27/24 Primary Care Physician: Dr. Valeriano Beasley MD Consultations 12/27/24 16:14 Consult: Wastewater Plant Civil Engineer / Pulmonary Medicine Routine Consulting Provider: Intensivists/Pulmonary [...] angioedema. Sedation w fentanyl and dexmedetomidine gtt. [facility] consult Extubated 12/29 (2) Angioedema: Status: [...] Patient is recommend to follow-up with an fiber optic splicer as outpatient. Patient also have prescription for [...] Clarity Cancelled, Urine pH Cancelled, Ur Specific [place] Cancelled, U Specif Grav (Refrac) Cancelled, Urine [...] 88.6 H, Lymph % (Auto) 3.8 L, [place] % (Auto) 6.4, Eos % (Auto) 0.0, [...] Drew Gibbons; Kenan Crawley; Carl Lieberman; Ran Perae; Gregory Hernandez; Mohit Myers; Patria Crowe; Flakita [...] potentially still get worse. Allergy and Immunology: [facility] [phone]. Dr. Ortiz [phone]. Discharge Orders/Prescriptions Prescriptions: New prednisone 20 mg tablet 40 mg PO DAILY Qty: 10 0RF epinephrine [EpiPen] 0.3 mg/0.3 mL auto-injector 0.3 mg IM X1 PRN (Reason: anaphylaxis/angioedema) Qty: 1 0RF Rx Instructions: for 2 doses Continued cholecalciferol (vitamin D3) 125 mcg (5,000 unit) capsule 125 mcg PO DAILY vitamin B complex [B Complex-Vitamin B12] Tablet 1 tab PO DAILY omega 7-fkb-aex-fish oil 100-400-1,000 mg capsule 1 cap PO [...] Self Care Charges/Coding Visit Charges Inpatient E&M: 27320 Disch Hosp >30min 12/30/24903 <Electronically signed by Alexi Olivas DO> Cosigner Signature (if applicable): CC: Dr. Alexi Olivas DO; Dr. Valeriano Beasley MD~ Signed [facility] Work Phone: 1(956) 751-504206-09-2025 Progress note [facility] Medical Records Department [address] [place] [address] Progress Note - Wastewater Plant Civil Engineer 12/30/24 0703 MR#: [id number] Acct: [id number] Name: LIVANNAZARIOBRISSA BAL Rep #:[id number] : 1950 74 From: Homer Guzman DO [...] that the patient follow-up with a local allergy/body piercer for further workup of his recurrent angioedema. This note was generated with [employer] dictation software. It may contain incorrectwords, spelling, [...] Clarity Cancelled, Urine pH Cancelled, Ur Specific [place] Cancelled, U Specif Grav (Refrac) Cancelled, Urine [...] 88.6 H, Lymph % (Auto) 3.8 L, Wilkinson % (Auto) 6.4, Eos % (Auto) 0.0, [...] affect normal Charges/Coding Visit Charges Inpatient E&M: 22793 Subs Hosp L2 12/30/24 1045 Cosigner Signature (if applicable): CC: ~ Signed [facility]06-09-2025 Discharge summary [facility] Medical Records Department [address] [place] [address] Discharge Summary 12/30/24 0854 MR#: [id number] Acct: [id number] Name: NAZARIO HUTTON Rep #:[id number] : 1950 74 From: lAexi Olivas DO PCP: Dr. Valeriano Beasley MD Status:ADM IN Location: ICU ICU07-1 Providers Date of Admission: 12/27/24 Primary Care Physician: Dr. Valeriano Beasley MD Consultations 12/27/24 16:14 Consult: Wastewater Plant Civil Engineer / Pulmonary Medicine Routine Consulting Provider: Intensivists/Pulmonary [...] angioedema. Sedation w fentanyl and dexmedetomidine gtt. [facility] consult Extubated 12/29 (2) Angioedema: Status: [...] Patient is recommend to follow-up with an fiber optic splicer as outpatient. Patient also have prescription for [...] Clarity Cancelled, Urine pH Cancelled, Ur Specific [place] Cancelled, U Specif Grav (Refrac) Cancelled, Urine [...] 88.6 H, Lymph % (Auto) 3.8 L, Wilkinson % (Auto) 6.4, Eos % (Auto) 0.0, [...] potentially still get worse. Allergy and Immunology: [facility] [phone]. Dr. Ortiz [phone]. Discharge Orders/Prescriptions Prescriptions: New prednisone 20 mg tablet 40 mg PO DAILY Qty: 10 0RF epinephrine [EpiPen] 0.3 mg/0.3 mL auto-injector 0.3 mg IM X1 PRN (Reason: anaphylaxis/angioedema) Qty: 1 0RF Rx Instructions: for 2 doses Continued cholecalciferol (vitamin D3) 125 mcg (5,000 unit) capsule 125 mcg PO DAILY vitamin B complex [B Complex-Vitamin B12] Tablet 1 tab PO DAILY omega 3-dvy-dyc-fish oil 100-400-1,000 mg capsule 1 cap PO [...] Self Care Charges/Coding Visit Charges Inpatient E&M: 78475 Disch Hosp >30min 12/30/24 0904 Cosigner Signature (if applicable): CC: Dr. Alexi Olivas DO; Dr. Valeriano Beasley MD~ Signed [facility]06-09-2025 Progress note Author Homer Guzman [facility] Note Date/Time December 30, 2024 10:45 am [facility] Medical Records Department [address] [place] [address] Progress Note - Wastewater Plant Civil Engineer 12/30/24 0703 MR#: [id number] Acct: [id number] Name: KALINNAZARIO CHAVEZ VALERIANO Rep #:[id number] : 1950 74 From: Homer Guzman DO [...] that the patient follow-up with a local allergy/body piercer for further workup of his recurrent angioedema. This note was generated with [employer] dictation software. It may contain incorrectwords, spelling, [...] Clarity Cancelled, Urine pH Cancelled, Ur Specific [place] Cancelled, U Specif Grav (Refrac) Cancelled, Urine [...] 88.6 H, Lymph % (Auto) 3.8 L, Wilkinson % (Auto) 6.4, Eos % (Auto) 0.0, [...] affect normal Charges/Coding Visit Charges Inpatient E&M: 27404 Subs Hosp L2 12/30/24 1045 <Electronically signed by Homer Guzman DO> Cosigner Signature (if applicable): CC: ~ Signed [facility] Work Phone: 1(114) 982-101306-09-2025 [facility] Medical Records Department [address] [place] [address] Discharge Summary 12/30/24 0854 MR#: [id number] Acct: [id number] Name: NAZARIO HUTTON Rep #: [id number] : 1950 74 From: Alexi Olivas DO PCP: Dr. Valeriano Beasley MD Status:ADM IN Location: ICU ICU07-1 Providers Date of Admission: 12/27/24 Primary Care Physician: Dr. Valeriano Beasley MD Consultations 12/27/24 16:14 Consult: Wastewater Plant Civil Engineer / Pulmonary Medicine Routine Consulting Provider: Intensivists/Pulmonary [...] angioedema. Sedation w fentanyl and dexmedetomidine gtt. [facility] consult Extubated 12/29 (2) Angioedema: Status: [...] Patient is recommend to follow-up with an fiber optic splicer as outpatient. Patient also have prescription for [...] Clarity Cancelled, Urine pH Cancelled, Ur Specific [place] Cancelled, U Specif Grav (Refrac) Cancelled, Urine [...] Coarse Granular Casts Ca (more content not included)...[facility]06-08-2025 Progress note Author Alexi Olivas [facility] Note Date/Time December 29, 2024 12:41 pm [facility] Medical Records Department [address] [place] [address] Progress Note - Hospitalist 12/29/24 0718 MR#: [id number] Acct: [id number] Name: NAZARIO HUTTON Rep #:[id number] : 1950 74 From: Alexi Olivas DO PCP: Dr. Valeriano Beasley MD Status:ADM IN [facility] Reason for Visit Reason for Visit: [...] 92.1 H, Lymph % (Auto) 2.9 L, Wilkinson % (Auto) 4.4, Eos % (Auto) 0.0, [...] angioedema. Sedation w fentanyl and dexmedetomidine gtt. [facility] consult Extubated 12/29 (2) Angioedema: PLAN: [...] discharge 12/30. Charges/Coding Visit Charges Inpatient E&M: 77264 Subs Hosp L2 12/29/24 1241 <Electronically signed by Alexi Olivas DO> Cosigner Signature (if applicable): CC: ~ Signed [facility] Work Phone: 1(666) 361-630206-08-2025 Progress note [facility] Medical Records Department [address] [place] [address] Progress Note - Hospitalist 12/29/24 0718 MR#: [id number] Acct: [id number] Name: NAZARIO HUTTON Rep #:[id number] : 1950 74 From: Alexi Olivas DO [...] 92.1 H, Lymph % (Auto) 2.9 L, Wilkinson % (Auto) 4.4, Eos % (Auto) 0.0, [...] 12/29/24 05:35 IMPRESSION: See above [facility] Ex[facility] Const Constitutional Narrative: Saw [...] discharge 12/30. Charges/Coding Visit Charges Inpatient E&M: 33753 Subs Hosp L2 12/29/24 1241 Cosigner Signature (if applicable): CC: ~ Signed [facility]06-08-2025 Progress note Author Mohit Myers [facility] Note Date/Time December 29, 2024 9:55a m [facility] Medical Records Department [address] [place] [address] Progress Note - Wastewater Plant Civil Engineer 12/29/24 0919 MR#: [id number] Acct: [id number] Name: NAZARIO HUTTON Rep #:[id number] : 1950 74 From: Mohit Myers MD [...] 92.1 H, Lymph % (Auto) 2.9 L, Wilkinson % (Auto) 4.4, Eos % (Auto) 0.0, [...] 12/29/24 05:35 IMPRESSION: See above Reading [facility] Assessment and Plan . Assessment and [...] Cosigner Signature (if applicable): CC: ~ Signed [facility] Work Phone: 1(637) 535-102306-08-2025 Progress note [facility] Medical Records Department [address] [place] [address] Progress Note - Wastewater Plant Civil Engineer 12/29/24918 MR#: [id number] Acct: [id number] Name: NAZARIO HUTTON Rep #:[id number] : 1950 74 From: Mohit Myers MD [...] 92.1 H, Lymph % (Auto) 2.9 L, Wilkinson % (Auto) 4.4, Eos % (Auto) 0.0, [...] 12/29/24 05:35 IMPRESSION: See above Reading [facility] Assessment and Plan . Assessment and [...] Cosigner Signature (if applicable): CC: ~ Signed [facility]06-08-2025 Radiology Diagnostic study note [facility] Imaging Services [address] [place] [address] Chest 1 View (Portable) MR#: [id number] Acct: [id number] Name: NAZARIO HUTTON Rep #: [id number] : 1950 M 74 From: Ebony Carr MD PCP: Dr. Valeriano Beasley MD Status: ADM IN Study:Chest 1 View (Portable) Date of Exam: 12/29/24 Exam# [id number] Ordering Dr: Zina Myers MD PROCEDURE: CHEST [...] View (Portable) IMPRESSION: See above Reading [facility] CC: Dr. Valeriano Beasley MD; Dr. Mohit Myers MD ~ Developer Evangelist: Signed [facility]06-07-2025 Consult note Author Mohit Myers [facility] Note Date/Time December 28, 2024 9:29p m [facility] Medical Records Department [address] [place] [address] 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 12/28/24 0916 MR#: [id number] Acct: [id number] Name: NAZARIO HUTTON Rep #:[id number] : 1950 74 From: Mohit Myers MD [...] ROS: Unable to obtain as pt intubated [facility] Medical History High serum parathyroid hormone (PTH) Heart murmur Elevated alkaline phosphatase level Elevated PSA Diverticulosis AVM (arteriovenous malformation) of colon Vitamin D deficiency Gout Alcohol abuse Essential hypertension Chest pain Anxiety Depression Myocardial infarct Chest pain Acute blood loss anemia Bloody diarrhea Coronary artery disease Atherosclerotic heart disease of saxman coronary artery without angina pectoris ST elevation [place] (STEMI) (~11/29/21) Hyperlipidemia Hypertension Home Medications ?Medication [...] disease Hypertension Myocardial infarction age 53 following [place]. Surgical History H/O colonoscopy S/P cataract extraction [...] 12/28/24 05:29 IV 12/28/24 18:53 75 mls/hr .[id number] YASMIN Administration Dexmedetomidine HCl 400 mcg/ 100 [...] (Auto) 67.1, Lymph % (Auto) 9.8 L, Wilkinson % (Auto) 11.2 H, Eos % (Auto) [...] 92.9 H, Lymph % (Auto) 5.0 L, Wilkinson % (Auto) 1.4, Eos % (Auto) 0.0, [...] Bilateral lower lung airspace disease is seen, haae-wssutfb-gvvt-right. Differential diagnosis includes atelectasis and pneumonitis. No evidence of pulmonary edema. The cardiomediastinal silhouette is within the normal range. No acute osseous change is evident. Reading Location: [address] Assessment and Plan . Assessment and [...] applicable): CC: Dr. Valeriano Beasley MD~ Signed [facility] Work Phone: 1(372) 387-948306-07-2025 Consult note [facility] Medical Records Department [address] [place] [address] 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 12/28/2416 MR#: [id number] Acct: [id number] Name: NAZARIO HUTTON Rep #:[id number] : 1950 74 From: Mohit Myers MD [...] ROS: Unable to obtain as pt intubated [facility] Medical History High serum parathyroid hormone (PTH) Heart murmur Elevated alkaline phosphatase level Elevated PSA Diverticulosis AVM (arteriovenous malformation) of colon Vitamin D deficiency Gout Alcohol abuse Essential hypertension Chest pain Anxiety Depression Myocardial infarct Chest pain Acute blood loss anemia Bloody diarrhea Coronary artery disease Atherosclerotic heart disease of saxman coronary artery without angina pectoris ST elevation [place] (STEMI) (~11/29/21) Hyperlipidemia Hypertension Home Medications ?Medication [...] disease Hypertension Myocardial infarction age 53 following [place]. Surgical History H/O colonoscopy S/P cataract extraction [...] 12/28/24 05:29 IV 12/28/24 18:53 75 mls/hr .[id number] YASMIN Administration Dexmedetomidine HCl 400 mcg/ 100 [...] (Auto) 67.1, Lymph % (Auto) 9.8 L, Wilkinson % (Auto) 11.2 H, Eos % (Auto) [...] 92.9 H, Lymph % (Auto) 5.0 L, Wilkinson % (Auto) 1.4, Eos % (Auto) 0.0, [...] Bilateral lower lung airspace disease is seen, iqpg-ykrbuaq-deln-right. Differential diagnosis includes atelectasis and pneumonitis. No evidence of pulmonary edema. The cardiomediastinal silhouette is within the normal range. No acute osseous change is evident. Reading Location: [address] Assessment and Plan . Assessment and [...] applicable): CC: Dr. Valeriano Beasley MD~ Signed [facility]06-07-2025 Progress note Author Alexi Olivas [facility] Note Date/Time December 28, 2024 2:04p [facility] Medical Records Department [address] [place] [address] Progress Note - Hospitalist 12/28/24 0751 MR#: [id number] Acct: [id number] Name: NAZARIO HUTTON Rep #:[id number] : 1950 74 From: Alexi Olivas DO [...] (Auto) 67.1, Lymph % (Auto) 9.8 L, Wilkinson % (Auto) 11.2 H, Eos % (Auto) [...] 92.9 H, Lymph % (Auto) 5.0 L, Wilkinson % (Auto) 1.4, Eos % (Auto) 0.0, [...] Bilateral lower lung airspace disease is seen, pyyt-crxxbfl-anmn-right. Differential diagnosis includes atelectasis and pneumonitis. No evidence of pulmonary edema. The cardiomediastinal silhouette is within the normal range. No acute osseous change is evident. Reading Location: [address] Physical Exam Const Constitutional Narrative: on [...] prophylaxis: LMWH. Charges/Coding Visit Charges Inpatient E&M: 69375 Subs Hosp L2 12/28/24 1408 <Electronically signed by Alexi Olivas DO> Cosigner Signature (if applicable): CC: ~ Signed [facility] Work Phone: 1(103) 538-592606-07-2025 Progress note [facility] Medical Records Department [address] [place] [address] Progress Note - Hospitalist 12/28/24 0751 MR#: [id number] Acct: [id number] Name: NAZARIO HUTTON Rep #:[id number] : 1950 74 From: Alexi Olivas DO [...] (Auto) 67.1, Lymph % (Auto) 9.8 L, Wilkinson % (Auto) 11.2 H, Eos % (Auto) [...] 92.9 H, Lymph % (Auto) 5.0 L, Wilkinson % (Auto) 1.4, Eos % (Auto) 0.0, [...] Bilateral lower lung airspace disease is seen, csgk-jguzzdc-okuq-right. Differential diagnosis includes atelectasis and pneumonitis. No evidence of pulmonary edema. The cardiomediastinal silhouette is within the normal range. No acute osseous change is evident. Reading Location: [address] Physical Exam Const Constitutional Narrative: on [...] angioedema. Sedation w fentanyl and dexmedetomidine gtt. [facility] consult Extubate when ok with CCM. [...] prophylaxis: LMWH. Charges/Coding Visit Charges Inpatient E&M: 32547 Subs Hosp L2 12/28/24 1405 Cosigner Signature (if applicable): CC: ~ Signed [facility]06-06-2025 History and physical note Author Flakita Florentino [facility] Note Date/Time December 27, 2024 2:52p m [facility] Medical Records Department [address] [place] [address] H&P Exam - Hospitalist 12/27/24 1411 MR#: [id number] Acct: [id number] Name: NAZARIO HUTTON Rep #:[id number] : 1950 74 From: Flakita Florentino DO PCP: Dr. Valeriano Beasley MD Status:REG ER Location: ED HPI - General General Date of Admission: 12/27/24 Date of Service: 12/27/24 Chief Complaint: Tongue and lip swelling HPI Narrative NAZARIO HUTTON, is a 74 M who presented to the emergency department at [facility] on 12/27/2024 with tongue and lip [...] maintained on Solu-Medrol, H2 and H1 blockers. [facility] Medical History High serum parathyroid hormone (PTH) Heart murmur Elevated alkaline phosphatase level Elevated PSA Diverticulosis AVM (arteriovenous malformation) of colon Vitamin D deficiency Gout Alcohol abuse Essential hypertension Chest pain Anxiety Depression Myocardial infarct Chest pain Acute blood loss anemia Bloody diarrhea Coronary artery disease Atherosclerotic heart disease of saxman coronary artery without angina pectoris ST elevation [place] (STEMI) (~11/29/21) Hyperlipidemia Hypertension Home Medications ?Medication [...] disease Hypertension Myocardial infarction age 53 following [place]. Surgical History H/O colonoscopy S/P cataract extraction [...] (Auto) 67.1, Lymph % (Auto) 9.8 L, Wilkinson % (Auto) 11.2 H, Eos % (Auto) [...] Patient should follow-up as an outpatient with fiber optic splicer if has not already done so Chronic [...] Full code Charges/Coding Visit Charges Inpatient E&M: 47921 Init Hosp L2 12/27/24 1452 <Electronically signed by Flakita Florentino DO> Cosigner Signature (if applicable): CC: Dr. Valeriano Beasley MD; Dr. Flakita Florentino DO~ Signed [facility] Work Phone: 1(448) 609-687406-06-2025 Discharge summary Author Marino Holguin [facility] Note Date/Time December 27, 2024 2:20p m [facility] Medical Records Department [address] [place] [address] Emergency Department Summary 12/27/24 MR#: [id number] Acct: [id number] Name: NAZARIO HUTTON Rep #:[id number] : 1950 74 From: Marino Holguin MD [...] Coronary artery disease Atherosclerotic heart disease of saxman coronary artery without angina pectoris ST elevation [place] (STEMI) (~11/29/21) Hyperlipidemia Hypertension Home Medications ?Medication [...] disease Hypertension Myocardial infarction age 53 following [place]. Surgical History H/O colonoscopy S/P cataract extraction [...] (Auto) 67.1 Lymph % (Auto) 9.8 L Wilkinson % (Auto) 11.2 H Eos % (Auto) [...] is 82 with a first-degree AV block. [place] to the left. MA interval is 270 ms. QRS duration is [...] no mention of angioedema postmarketing reports through [employer]. Will review othersources. Of note patient was [...] prior records and laboratoryresults.), Discussing w/Patient &/or Family/Road Machine Runner (Patient was informed that he needs to [...] Eosinophilia, Lymphopenia Disposition Disposition: [facility] What to do if you have Problems For any increased pain, shortness of breath, bleeding, nausea or vomiting, chestpain, or any unexpected problems, contact your Primary Care Provider. Call [facility] ([phone]) or report to the closest Emergency Room. Call 911 if necessary. 12/27/24 1420 <Electronically signed by Marino Holguin MD> Cosigner Signature (if applicable): CC: Dr. Valeriano Beasley MD ~ Signed [facility] Work Phone: 1(513) 861-134706-06-2025 History and physical note [facility] Medical Records Department [address] [place] [address] H&P Exam - Hospitalist 12/27/24 1411 MR#: [id number] Acct: [id number] Name: NAZARIO HUTTON Rep #:[id number] : 1950 74 From: Flakita Florentino DO PCP: Dr. Valeriano Beasley MD Status:REG ER Location: ED HPI - General General Date of Admission: 12/27/24 Date of Service: 12/27/24 Chief Complaint: Tongue and lip swelling HPI Narrative NAZARIO HUTTON, is a 74 M who presented to the emergency department at [facility] on 12/27/2024 with tongue and lip [...] maintained on Solu-Medrol, H2 and H1 blockers. [facility] Medical History High serum parathyroid hormone (PTH) Heart murmur Elevated alkaline phosphatase level Elevated PSA Diverticulosis AVM (arteriovenous malformation) of colon Vitamin D deficiency Gout Alcohol abuse Essential hypertension Chest pain Anxiety Depression Myocardial infarct Chest pain Acute blood loss anemia Bloody diarrhea Coronary artery disease Atherosclerotic heart disease of saxman coronary artery without angina pectoris ST elevation [place] (STEMI) (~11/29/21) Hyperlipidemia Hypertension Home Medications ?Medication [...] disease Hypertension Myocardial infarction age 53 following [place]. Surgical History H/O colonoscopy S/P cataract extraction [...] (Auto) 67.1, Lymph % (Auto) 9.8 L, Wilkinson % (Auto) 11.2 H, Eos % (Auto) [...] Patient should follow-up as an outpatient with fiber optic splicer if has not already done so Chronic [...] Full code Charges/Coding Visit Charges Inpatient E&M: 75038 Init Hosp L2 12/27/24 1452 Cosigner Signature (if applicable): CC: Dr. Valeriano Beasley MD; Dr. Flakita Florentino, DO~ Signed [facility]06-06-2025 Radiology Diagnostic study note [facility] Imaging Services [address] [place] [address] Chest 1 View (Portable) MR#: [id number] Acct: [id number] Name: NAZARIO HUTTON Rep #: [id number] : 1950 M 74 From: Hugh Berg MD PCP: Dr. Valeriano Beasley MD Status: REG ER Study:Chest 1 View (Portable) Date of Exam: 12/27/24 Exam# [id number] Ordering Dr: Jake Holguin MD PROCEDURE: CHEST [...] Bilateral lower lung airspace disease is seen, sjen-nyffqxk-tlxm-right. Differential diagnosis includes atelectasis and pneumonitis. No evidence of pulmonary edema. The cardiomediastinal silhouette is within the normal range. No acute osseous change is evident. Reading Location: [address] CC: Dr. Valeriano Beasley MD; Dr. Marino Holguin MD ~ Developer Evangelist: Signed [facility]06-06-2025 Discharge summary [facility] Medical Records Department [address] [place] [address] Emergency Department Summary 12/27/24 MR#: [id number] Acct: [id number] Name: NAZARIO HUTTON Rep #:[id number] : 1950 74 From: Marino Holguin MD [...] Coronary artery disease Atherosclerotic heart disease of saxman coronary artery without angina pectoris ST elevation [place] (STEMI) (~11/29/21) Hyperlipidemia Hypertension Home Medications ?Medication [...] disease Hypertension Myocardial infarction age 53 following [place]. Surgical History H/O colonoscopy S/P cataract extraction [...] (Auto) 67.1 Lymph % (Auto) 9.8 L Wilkinson % (Auto) 11.2 H Eos % (Auto) [...] is 82 with a first-degree AV block. [place] to the left. MA interval is 270 ms. QRS duration is [...] no mention of angioedema postmarketing reports through [employer]. Will review othersources. Of note patient was [...] prior records and laboratoryresults.), Discussing w/Patient &/or Family/Road Machine Runner (Patient was informed that he needs to [...] Eosinophilia, Lymphopenia Disposition Disposition: [facility] What to do if you have Problems For any increased pain, shortness of breath, bleeding, nausea or vomiting, chestpain, or any unexpected problems, contact your Primary Care Provider. Call [facility] ([phone]) or report tothe closest Emergency Room. Call 911 if necessary. 12/27/24 1420 Cosigner Signature (if applicable): CC: Dr. Valeriano Beasley MD ~ Signed [facility]06-06-2025 Discharge summary Author Marino Holguin [facility] Note Date/Time December 27, 2024 2:20p m [facility] Medical Records Department [address] [place] [address] Emergency Department Summary 12/27/24 MR#: [id number] Acct: [id number] Name: NAZARIO HUTTON Rep #:[id number] : 1950 74 From: Marino Holguin MD [...] Coronary artery disease Atherosclerotic heart disease of saxman coronary artery without angina pectoris ST elevation [place] (STEMI) (~11/29/21) Hyperlipidemia Hypertension Home Medications ?Medication [...] disease Hypertension Myocardial infarction age 53 following [place]. Surgical History H/O colonoscopy S/P cataract extraction [...] (Auto) 67.1 Lymph % (Auto) 9.8 L Wilkinson % (Auto) 11.2 H Eos % (Auto) [...] is 82 with a first-degree AV block. [place] to the left. MA interval is 270 ms. QRS duration is [...] no mention of angioedema postmarketing reports through [employer]. Will review othersources. Of note patient was [...] prior records and laboratoryresults.), Discussing w/Patient &/or Family/Road Machine Runner (Patient was informed that he needs to [...] drugs, Eosinophilia, Lymphopenia Disposition Disposition: Acute Care [facility] What to do if you have Problems For any increased pain, shortness of breath, bleeding, nausea or vomiting, chestpain, or any unexpected problems, contact your Primary Care Provider. Call [facility] ([phone]) or report to the closest Emergency Room. Call 911 if necessary. 12/27/24 1420 <Electronically signed by Marino Holguin MD> Cosigner Signature (if applicable): CC: Dr. Valeriano Beasley MD ~ Signed [facility] Work Phone: 1(795) 601-356406-05-2025 NoteHNO ID: [id number] Author: LUPILLO MOURA LPN Service: ? Author Type: LICENSED NURSE Type: Progress Notes Filed: 12/26/2024 07:56 Note Text: Scan on 12/26/2024 7:26 AM by ProviderBing PA-C: Consultation - Cardiology [facility]06-05-2025 History of Present illness Narrative* Lupillo Moura LPN - 12/26/2024 7:56 AM EDT Scan on 12/26/2024 7:26 AM by ProviderBing PA-C: [facility] NoteHNO ID: [id number] Author: PATRIA KHANNA JR, MD Service: ? [...] tablet by mouth tw (more content not included)...[facility]06-02-2025 History of Present illness Narrative* Patria Khanna [...] due to lower GI bleed from diverticulosis) Financial Accounting Analyst's nodules 03/15/2021 Valvular heart disease 05/18/2023 Echo [...] which included preparing to see the patient, odjg-jz-ihnm patient care, completing clinical documentation, obtaining and/or reviewing separately obtained history, performing a medically appropriate examination, counseling and educating the pa tient/family/caregiver, ordering medications, tests, or procedures, and communicating results to the patient/family/caregiver. PDMP website checked and validated. All prescriptions have been APPROPRIATELY filled. No suspiciousactivity was identified. 12/23/2024 by Patria Khanna MD documented [facility] Telephone encounter Note * Telephone Encounter - Flakita Pastor MA - 11/15/2024 2:33 PM EDT Additional message left for pt to call back. Flakita Pastor MA [facility]04-25-2025 Miscellaneous Notes* Telephone Encounter - Flakita [...] is negative for aneurysm. documented in this encounterPike [facility]04-22-2025 NoteHNO ID: [id number] Author: GANESH WHITE MA Service: ? Author Type: Lamp Developer Type: Progress Notes Filed: 11/12/2024 16:25 Note Text: Scan on 11/05/2024 3:43 PM by Provider, External, PA-C: Chemistry Scan on 11/05/2024 5:16 PM by Provider, External, PA-C: Chemistry Ganesh White [facility]04-22-2025 History of Present illness Narrative* Ganesh White MA - 11/12/2024 4:24 PM EDT Scan on 11/05/2024 3:43 PM by Bing Salmeron PA-C: Chemistry Scan on 11/05/2024 5:16 PM by Bing Salmeron PA-C: Chemistry Ganesh White MA * Flakita Pastor MA - 11/05/2024 3:50 PM EDT Labs resulted at [facility]. View External Labs - Hematology [ID [id number]] documented in this encounterPike [facility]04-22-2025 NoteHNO ID: [id number] Author: LUPILLO MOURA LPN Service: ? Author Type: LICENSED NURSE Type: Progress Notes Filed: 11/12/2024 07:16 Note Text: Scan on 11/11/2024 4:10 PM by Bing Salmeron PA-C: Consultation - [facility]04-22-2025 History of Present illness Narrative* Lupillo Moura LPN - 11/12/2024 7:16 AM EDT Scan on 11/11/2024 4:10 PM by Bing Salmeron PA-C: Consultation - documented in this encounterP[facility]04-18-2025 Telephone encounter Note * Telephone Encounter - Zakiya Spangler MA - 11/08/2024 9:10 AM EDT Called and left message on patients voicemail to return call to the office and ask to speak with a triage nurse. Zakiya Spangler MA [facility]04-17-2025 Telephone encounter Note* Telephone Encounter - Rupal Coe MA - 11/07/2024 10:19 AM EDT Left message for patient to return call to office Rupal Coe MA [facility]04-17-2025 Telephone encounter Note* Telephone Encounter - Ni Sauceda APRN.CNP - 11/07/2024 8:48 AM EDT Please let patient know his AAA screening is negative for aneurysm. [facility]04-16-[facility] History of Present illness Narrative* Bhavani [...] PATIENT PRESENTS WITH AN IMPLANTABLE OR ATTACHED MAINSPRING BARREL ASSEMBLY CLEANER: No RADIOLOGY DEPARTMENT: Ultrasound PERIPHERAL IV DATA: Not applicable SIGNED BY: Bhavani Liu RDMS RVT November 06, 2024 4:44 PM documented in this encounterPike [facility] Hospital04-16-2025 NoteHNO ID: [id number] Author: BHAVANI LIU RDMS Service: ? Author Type: Insurance Manager Type: Progress Notes Filed: 11/06/2024 16:45 Note [...] PATIENT PRESENTS WITH AN IMPLANTABLE OR ATTACHED MAINSPRING BARREL ASSEMBLY CLEANER: No RADIOLOGY DEPARTMENT: Ultrasound PERIPHERAL IV DATA: Not applicable SIGNED BY: Bhavani Liu RDMS RVBrittany November 06, 2024 4:44 [facility]04-15-2025 NoteHNO ID: [id number] Author: FLAKITA PASTOR MA Service: ? Author Type: Lamp Developer Type: Progress Notes Filed: 11/12/2024 16:25 Note Text: Labs resulted at [facility]. View External Labs - Hematology [ID [id number]][facility] 11-05-2024 Evaluation note* Diagnosis Onset Date Resolution Status Admit Date Atherosclerotic heart diseas e of saxman coronary artery without angina pectoris acute November 05, 2024 12:58pm Essential hypertension acute Ap 2024 12:58pm Hyperlipidemia acute October 12:58pm Acute respiratory failure resolved December 27, 2024 1:58pm Angioedema resolved December 27, 2024 1:58pm Eosinophilia resolved December 27 1:58pm Hypotension due to drugs resolved December 27, 2024 1:58pm Lymphopenia resolved December 27 1:58pm Monocytosis resolved December 27 1:58pm [facility] Work Phone: 1(413) 220-367104-11-2025 Instructions* Patient Instructions* Ni Sauceda APRN.CNP - 11/01/2024 11:08 AM EDT Vaccinations needed-DTaP, Shingrix, Hep A, RSV, Hep B documented in this encounterPike [facility] Hospital04-11-2025 NoteHNO ID: [id number] Author: NI SAUCEDA APRN.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 MANAGER Service: ? Author Type: Nurse Practitioner Type: [...] lipid rich plaque 12/06/[address] Edwards [facility] [place] Diverticulosis 09/05/2022 Elevated alkaline phosphatase [...] due to lower GI bleed from diverticulosis) Financial Accounting Analyst's nodules 03/15/2021 Valvular heart disease 05/18/2023 Echo [...] No Review of Symp (more content not included)...[facility] 11-01-2024 History of Present illness Narrative* Ni Sauceda APRN.[facility] - 11/01/2024 10:54 AM EDT Chief Complaint [...] due to lower GI bleed from diverticulosis) Financial Accounting Analyst's nodules 03/15/2021 Valvular heart disease 05/18/2023 Echo [...] Lymph 1.00 - 4.00 k/uL 0.59 (L) Wilkinson% % 10.9 Abs Wilkinson <0.87 k/uL 0.72 Eosin% % 7.0 Abs [...] Negative Ketones, Urine Negative Trace ! Specific [place], Ur 1.005 - 1.030 1.019 Hemoglobin/Blood,Ur Negative [...] 571.2, ICD10: K70.30 -Follows with Hepatology at [facility] 3. Advance directive discussed with patient - ICD9: V65.49, ICD10: Z71.89 - ADVANCE CARE PLAN DISCUSSION 4. Valvular heart disease - ICD9: 424.90, ICD10: I38 -Follows with cardiology at [facility] 5. Lumbosacral radiculopathy at L5 - ICD9: [...] ICD10: I25.10, I25.83 -Follows with cardiology at [place] and [facility] 8. Low vitamin D level - [...] - US SCREENING FOR AAA Ni Sauceda APRN.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 MANAGER documented in this encounterPike [facility] Hospital04-08-2025 Progress note* Result Encounter Note - Stephanie Roy DO - 10/29/2024 5:16 PM EDT Can let him know the bone x-ray showed only signs of degenerative/arthritis with no suspicious lesions. Follow-up as scheduled. [facility] Work Phone: 1(241) 124-911804-08-2025 Miscellaneous Notes* Result Encounter Note - Stephanie Roy DO - 10/29/2024 5:16 PM EDT Can let him know the bone x-ray showed only signs of degenerative/arthritis with no suspicious lesions. Follow-up as scheduled. documented in this encounterPike [facility]04-02-2025 History of Present illness Narrative* Kimberly [...] PATIENT PRESENTS WITH AN IMPLANTABLE OR ATTACHED MAINSPRING BARREL ASSEMBLY CLEANER: No RADIOLOGY DEPARTMENT: General X-ray: Exam(s) Completed: Bone Survey PERIPHERAL IV DATA: Not applicable SIGNED BY: RT Osman(Federico) October 23, 2024 2:49 PM documented in this encounterPike [facility] Hospital04-02-2025 NoteHNO ID: [id number] Author: KIMBERLY GLASS RT(R) Service: Radiology Author [...] PATIENT PRESENTS WITH AN IMPLANTABLE OR ATTACHED MAINSPRING BARREL ASSEMBLY CLEANER: No RADIOLOGY DEPARTMENT: General X-ray: Exam(s) Completed: Bone Survey PERIPHERAL IV DATA: Not applicable SIGNED BY: RT Osman(R) October 23, 2024 2:49 [facility]04-02-2025 NoteHNO ID: [id number] Author: STEPHANIE ROY, DO Service: ? Author Type: Physician Type: Progress Notes Filed: 10/23/2024 14:11 Note Text: Hematologic problem(s): 1) Monoclonal gammopathy. HPI: The patient is a 73 yo male with PMH as outlined below. CAD--[place] PCI 4 stents 2021. 07/2022--Lower GI bleed. [...] due to lower GI bleed from diverticulosis) Financial Accounting Analyst's nodules 03/15/2021 Valvular heart disease 05/18/2023 Echo [...] OF SYSTEMS: Constitutional: No (more content not included)...[facility] 10-23-2024 History of Present illness Narrative* Stephanie Ryo DO - 10/23/2024 1:47 PM EDT Hematologic problem(s): 1) Monoclonal gammopathy. HPI: The patient is a 73 yo male with PMH as outlined below. CAD--[place] PCI 4 stents 2021. 07/2022--Lower GI bleed. [...] due to lower GI bleed from diverticulosis) Financial Accounting Analyst's nodules 03/15/2021 Valvular heart disease 05/18/2023 Echo [...] the patient (cannot find EMG report in [facility] electronic record), [id number] patient care, completing clinical documentation, obtaining and/or reviewing separately obtained history, counseling and educating the p atient/family/caregiver, ordering medications, tests, or procedures, communicating with other HCPs (not separately reported), and communicating results to the patient/family/caregiver. Stephanie Roy DO documented in this encounterPike [facility]04-02-2025 NoteHNO ID: [id number] Author: GANESH WHITE MA Service: ? Author Type: Lamp Developer Type: Progress Notes Filed: 10/23/2024 11:25 Note Text: Scan on 10/21/2024 3:42 PM by Provider, ELIZABETH Smart: Miscellaneous Lab Ganesh White [facility]04-02-2025 History of Present illness Narrative* Ganesh White MA - 10/23/2024 11:25 AM EDT Scan on 10/21/2024 3:42 PM by Provider, ELIZABETH Smart: Miscellaneous Lab Ganesh White MA documented in this encounterPike [facility] Hospital03-11-2025 Telephone encounter Note * Telephone Encounter - Jagruti Reich - 10/01/2024 1:25 PM EDT Relayed message to patient. Lab and office visit scheduled with patient. Patient aware to shredder picker 24 hr urine container prior to 10/21 when he comes in for lab work. He willbring urine to that appt. [facility] Work Phone: 1(992) 394-870803-11-2025 Miscellaneous Notes* Telephone Encounter - Jagruti Reich - 10/01/2024 1:25 PM EDT Relayed message to patient. Lab and office visit scheduled with patient. Patient aware to shredder picker 24 hr urine container prior to [...] me. Stephanie Roy DO documented in this encounterPike [facility] Hospital03-11-2025 Telephone encounter Note * Telephone Encounter - Tayler Leahy LPN - 10/01/2024 8:37 AM EDT Second message left for patient to contact office. Tayler Leahy LPN [facility]03-10-2025 Telephone encounter Note* Telephone Encounter - Tayler Leahy LPN - 09/30/2024 8:58 AM EDT Message left for patient to contact office. 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 Needs ionized calcium and 24-hour urine M spike then office visit with me. Stephanie Roy DO [facility]03-05-2025 History of Present illness Narrative* Stephanie Roy, - 09/25/2024 2:00 PM EST Patient referred by Dr. 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 HPI: The patient is a 73 yo male with PMH as outlined below. CAD--[place] PCI 4 stents 2021. 07/2022--Lower GI bleed. 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 Stephanie Roy DO documented in this encounterPike [facility] Hospital03-05-2025 NoteHNO ID: [id number] Author: STEPHANIE ROY DO Service: ? Author Type: Physician Type: Progress Notes Filed: 09/25/2024 15:01 Note Text: Patient referred by Dr. 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 HPI: The patient is a 73 yo male with PMH as outlined below. CAD--[place] PCI 4 stents 2021. 07/2022--Lower GI bleed. 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 Author Type: LICENSED NURSE Type: Progress Notes Filed: 09/24/2024 07:10 Note Text: Scan on 09/23/2024 4:55 PM by Provider, KENNY SmartC: Consultation - Scan on 09/23/2024 10:57 PM by ProviderBing PA-C: [facility] History of Present illness Narrative* Lupillo Moura LPN - 09/24/2024 6:59 AM EST Scan on 09/23/2024 4:55 PM by ProviderBing PA-C: Consultation - Scan on 09/23/2024 10:57 PM by Provider, ELIZAEBTH Smart: CT Scan documented in this encounterPike [facility] Hospital03-03-2025 Radiology Diagnostic study note [facility] Imaging Services [address], [place] [id number] Abdomen Single View MR#: [id number] Acct: [id number] Name: NAZARIO HUTTON Rep #: [id number] : 1950 M 73 From: Alejandrina Garcia DO PCP: Dr. Valeriano Beasley MD Status: REG CLI Study:Abdomen Single View Date of Exam: 09/23/24 Exam# [id number] Ordering Dr: Irma Barron MD PROCEDURE: ABDOMEN [...] Beasley MD; Dr. Geovani Barron MD ~ Developer Evangelist: Signed [facility]02-27-2025 Evaluation note* Diagnosis Onset Date Resolution Status Admit Date Kidney stone on left side acute September 19, 2024 1:55pm Cirrhosis, alcoholic chronic Febr ua2024 1:55pm Hx of lower gastrointestinal bleeding chronic September 19, 2 025 1:55pm [facility] Work Phone: 1(454) 263-273002-27-2025 Evaluation note* Diagnosis Onset Date Resolution Status Admit Date Kidney stone on left side acute September 19, 2024 1:55pm Cirrhosis, alcoholic chronic Febr ua2024 1:55pm Hx of lower gastrointestinal bleeding chronic September 19 1:55pm Atherosclerotic heart diseas e of saxman coronary artery without angina pectoris acute November 05, 2024 12:58pm Essential hypertension acute Ap ril 2024 12:58pm Hyperlipidemia acute October 12:58pm [facility] Work Phone: 1(967) 536-240102-27-2025 Evaluation note* Diagnosis Onset Date Resolution Status Admit Date Kidney stone on left side acute September 19, 2024 1:55pm Cirrhosis, alcoholic chronic Febr 2024 1:55pm Hx of lower gastrointestinal bleeding chronic September 19 025 1:55pm 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 Author Type: Lamp Developer Type: Progress Notes Filed: 09/18/2024 07:58 Note Text: Scan on 09/17/2024 4:35 AM by Provider, Bing PAOndinaC: Miscellaneous Lab Scan on 09/17/2024 9:16 AM by Provider, Bing, PAOndinaC: Miscellaneous Lab Ganesh White [facility]02-26-2025 History of Present illness Narrative* Ganesh White MA - 09/18/2024 7:58 AM EST Scan on 09/17/2024 4:35 AM by Bing Salmeron PA-C: Miscellaneous Lab Scan on 09/17/2024 9:16 AM by Bing Salmeron PA-C: Miscellaneous Lab Ganesh White MA documented in this encounterPike [facility] Hospital02-25-2025 NoteHNO ID: [id number] Author: LUPILLO MOURA LPN Service: ? Author Type: LICENSED NURSE Type: Progress Notes Filed: 09/17/2024 07:00 Note Text: Scan on 09/17/2024 4:35 AM by Bing Salmeron PA-C: Miscellaneous Lab [facility]02-25-2025 History of Present illness Narrative* Lupillo Moura LPN - 09/17/2024 7:00 AM EST Scan on 09/17/2024 4:35 AM by Bing Salmeron PA-C: Miscellaneous Lab documented in this encounterPike [facility] Hospital02-21-2025 NoteHNO ID: [id number] Author: ULPILLO MOURA LPN Service: ? Author Type: LICENSED NURSE Type: Progress Notes Filed: 09/13/2024 07:27 Note Text: Scan on 09/12/2024 5:13 PM by Bing Salmeron PA-C: Chemistry Scan on 09/12/2024 4:19 PM by Bing Salmeron PA-C: Chemistry Scan on 09/12/2024 3:26 PM by Bing Salmeron PA-C: [facility]ology[facility] History of Present illness Narrative* Lupillo Moura LPN - 09/13/2024 7:27 AM EST Scan on 09/12/2024 5:13 PM by Bing Salmeron PA-C: Chemistry Scan on 09/12/2024 4:19 PM by Bing Salmeron PA-C: Chemistry Scan on 09/12/2024 3:26 PM by ProviderBing PA-C: Hematology documented in this encounterPike [facility] Hospital02-15-2025 NoteHNO ID: [id number] Author: LUPILLO MOURA LPN Service: ? Author Type: LICENSED NURSE Type: Progress Notes Filed: 09/07/2024 10:31 Note Text: Scan on 09/06/2024 6:27 PM by Bing Salmeron PA-C: [facility] History of Present illness Narrative* Lupillo Moura LPN - 09/07/2024 10:31 AM EST Scan on 09/06/2024 6:27 PM by Bing Salmeron PA-C: CT Scan documented in this encounterPike [facility] Hospital02-11-2025 History of Present illness Narrative* Nyla De Jesus DO - 09/03/2024 3:10 PM EST Images from the original note were not included. Rheumatology Clinic New Patient Virtual Note Date of Service: 09/03/2024 Patient: Nazario Hutton Medical Record: [id number] Primary Care Physician: Valeriano Beasley MD [facility] Referring Provider: Patria Khanna [address] [place] [address] Khanna, Patria Solis [...] went to neurology. 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 [facility] on 09/03/24 C3 COMPLEMENT C4 COMPLEMENT SEDIMENTATION RATE, WESTERGREN C-REACTIVE PROTEIN DNA ANTIBODY DS BLD COMPLETE BLOOD COUNT AND DIFFERENTIAL COMPREHENSIVE METABOLIC PANEL CONSULT TO RHEUM/IMMUN DISEASE No follow-ups on file. Nyla De Jesus DO Rheumatology 09/02/2024 I spent a total of 62 minutes on the date of the service which included preparing to see the patient, [id number] patient care, completing clinical documentation, obtaining and/or reviewing separately obtained history, performing a medically appropriate examination, counseling and educating the pat ient/family/caregiver, ordering medications, tests, or procedures, communicating with other HCPs (not separately reported), independently interpreting results (not separately reported), and communicating results to the patient/family/caregiver. documented in this encounterPike [facility] Hospital02-11-2025 NoteHNO ID: [id number] Author: NYLA DE JESUS DO Service: ? Author Type: Physician Type: Progress Notes Filed: 09/04/2024 10:18 Note Text: Rheumatology Clinic New Patient Virtual Note Date of Service: 09/03/2024 Patient: Nazario Hutton Medical Record: [id number] Primary Care Physician: Valeriano Beasley MD Last Rheumat[facility] visit: [facility] Referring Provider: Patria Khanna [address] [place] [address] Khanna, Patria Solis [...] went to neurology. He was referred to senior quality assurance specialist and was told that some nerve [...] diphenhydrAMINE (BENADRYL) 25 m (more content not included)...[facility]02-11-2025 Telephone encounter Note* Telephone Encounter - Bhavani [...] If he agrees, I will place consult. [facility]02-11-2025 Miscellaneous Notes* Telephone Encounter - Bhavani [...] I will place consult. documented in this encounterPike [facility] Hospital02-11-2025 Telephone encounter Note * Telephone Encounter [...] If he agrees, I will place consult. [facility]02-11-2025 Miscellaneous Notes* Telephone Encounter - Bhavani [...] I will place consult. documented in this encounterPike [facility] Hospital02-07-2025 NoteHNO ID: [id number] Author: PATRIA KHANNA JR, MD Service: ? [...] and there occurring in the setting of [place]/cardiac condition, do need to be concerned that [...] benefit of repeating EMG/NCV as will not shredder picker small fiber disorder and still too [...] 13.1 Platelet Count (k/uL) (more content not included)...[facility] 08-30-2024 History of Present illness Narrative* Patria [...] and there occurring in the setting of [place]/cardiac condition, do need to be concerned that [...] benefit of repeating EMG/NCV as will not shredder picker small fiber disorder and still too [...] (AI) Date Value 01/02/2024 <0.2 URINALYSIS Specific [place], Ur Date Value Ref Range Status 04/04/2024 [...] due to lower GI bleed from diverticulosis) 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 [...] Sleep Apnea Probability Score: 67 (Recommend sleep study)[facility]02-05-2025 NoteHNO ID: [id number] Author: LUPILLO MOURA LPN Service: ? Author Type: LICENSED NURSE Type: Progress Notes Filed: 08/28/2024 07:04 Note Text: Scan on 08/27/2024 4:55 PM by Provider, External, PAOndinaC: Consultation - [facility]02-05-2025 History of Present illness Narrative* Lupillo Moura LPN - 08/28/2024 7:04 AM EST Scan on 08/27/2024 4:55 PM by Provider, Bing, ELIZABETH: Consultation - documented in this encounterPike [facility] Hospital01-27-2025 NoteHNO ID: [id number] Author: ARUN CHRISTIAN, DO Service: ? 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 documented in this encounterPike [facility] Hospital01-27-2025 NoteHNO ID: [id number] Author: OLGA MARCIAL RN Service: ? 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 Consult placed. - discussed [...] which included preparing to see the patient, npqy-zp-gamt patient care, completing clinical documentation, performing a medically appropriate examination, counseling and educating the patient/family/caregiver and ordering medications, tests, or procedures. Valeriano Beasley MD documented in this encounterPike [facility]01-[facility]-2025 NoteHNO ID: [id number] Author: VALERIANO BEASLEY MD Service: ? 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 Pineda Styles RN July 19, 2024 2:43 PM [facility]12-27-2024 Miscellaneous Notes* Telephone Encounter - Pineda [...] Needs 30 day supply to go to [employer] and 90 day supply to go to [employer]. Pineda Styles RN July 19, 2024 2:43 PM documented in this encounterPike [facility] Hospital12-27-2024 NoteHNO ID: [id number] Author: LUPILLO MOURA LPN Service: ? Author Type: LICENSED NURSE Type: Progress Notes Filed: 07/19/2024 07:31 Note Text: Scan on 07/18/2024 4:24 PM by Bing Salmeron PA-C: Consultation - [facility] History of Present illness Narrative* Lupillo Moura LPN - 07/19/2024 7:31 AM EST Scan on 07/18/2024 4:24 PM by Bing Salmeron PA-C: Consultation - Emergency Medicine documented in this encounterPike [facility] Hospital11-13-2024 Note* Addendum Note - Valeriano Beasley MD - 06/05/2024 9:08 AM ESTAddended by: VALERIANO BEASLEY on: 06/05/2024 09:08 AM Modules accepted: Orders [facility]11-13-2024 Miscellaneous Notes* Addendum Note - Valeriano Beasley MD - 06/05/2024 9:08 AM ESTAddended by: VALERIANO BEASLEY on: 06/05/2024 09:08 AM Modules accepted: Orders documented in this encounterPike [facility] Hospital11-13-2024 NoteHNO ID: [id number] Author: LUPILLO MOURA LPN Service: ? Author Type: LICENSED NURSE Type: Progress Notes Filed: 06/05/2024 07:36 Note Text: Scan on 06/04/2024 2:56 PM by Bing Salmeron PA-C: Consultation - GI [facility]11-13-2024 History of Present illness Narrative* Lupillo Moura LPN - 06/05/2024 7:36 AM EST Scan on 06/04/2024 2:56 PM by Bing Salmeron PA-C: Consultation - GI documented in this encounterPike [facility] Hospital11-07-2024 NoteHNO ID: [id number] Author: MERRICK SU MA Service: ? Author Type: Lamp Developer Type: Progress Notes Filed: 05/30/2024 13:55 Note Text: Scan on 05/30/2024 1:20 PM by Bing Salmeron PA-C: [facility]ation - [facility] History of Present illness Narrative* Merrick Su MA - 05/30/2024 1:48 PM EST Scan on 05/30/2024 1:20 PM by Bing Salmeron PA-C: Consultation - Cardiology documented in this encounterPike [facility] Hospital11-06-2024 Note* Addendum Note - Suzanna Dawson PA-C - 05/29/2024 1:34 PM ESTAddended by: SUZANNA BYERS on: 05/29/2024 01:34 PM Modules accepted: Level of Service [facility]11-06-2024 Miscellaneous Notes* Addendum Note - Suzanna Dawson PA-C - 05/29/2024 1:34 PM ESTAddended by: SUZANNA BYERS on: 05/29/2024 01:34 PM Modules accepted: Level of Service documented in this encounterPike [facility] Hospital11-06-2024 NoteHNO ID: [id number] Author: SUZANNA DAWSON PA-C Service: ? 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 Author Type: LICENSED NURSE Type: Progress Notes Filed: 05/28/2024 08:48 Note Text: Scan on 05/27/2024 4:25 PM by ProviderBing PA-C: Consultation - [facility]11-05-2024 History of Present illness Narrative* Lupillo Moura LPN - 05/28/2024 8:48 AM EST Scan on 05/27/2024 4:25 PM by Bing Salmeron PA-C: Consultation - documented in this encounterPike [facility] Hospital10-29-2024 Telephone encounter Note * Telephone Encounter - Heron Enriquez LPN - 05/21/2024 2:40 PM EDT Pt returned call to office. Notified of results. He verbalized understanding. Pt also mentions he has an appt on May [address] Barron and Jun [address] Blanco. Heron Enriquez LPN [facility]10-29-2024 Miscellaneous Notes* Telephone Encounter - Heron [...] EDT Negative for hepatitis. documented in this encounterPike Community Hospital10-29-2024 Telephone encounter Note * Telephone Encounter - Flakita Pastor MA - 05/21/2024 9:21 AM EDT Additional message left for pt to call back. Flakita Pastor MA [facility]10-28-2024 Telephone encounter Note* Telephone Encounter - Lupillo Moura LPN - 05/20/2024 9:51 AM EDT Pt did read My Chart Message. Will close this encounter. Lupillo Moura LPN [facility]10-28-2024 Miscellaneous Notes* Telephone Encounter - Lupillo [...] 11:25 AM EDT Also sent pt a [facility] with phone numbers. Lupillo Moura LPN * Telephone Encounter - Lupillo Moura LPN - 05/15/2024 1:16 PM EDT Left message for pt to contact office for phone numbers. Dr Chacon [phone] Dr Barron [phone]. Please have pt contact them to schedule [...] he wish to stay [place] [facility]. Or does he prefer to stay with [facility]? I also need to do a [...] pt's US ordered by Suzanna mosher at [facility]. Lupillo oMura LPN Scan on 05/14/2024 2:31 PM by Provider, ELIZABETH Smart: Ultrasound documented in this encounterPike [facility] Hospital10-28-2024 Telephone encounter Note * Telephone Encounter - Ganesh White MA - 05/20/2024 9:41 AM EDT Left additional message for patient to contact office. Ganesh White MA [facility]10-28-2024 Telephone encounter Note* Telephone Encounter - Lupillo Moura LPN - 05/20/2024 9:10 AM EDT Left message for pt to contact office. Lupillo Moura LPN [facility]10-28-2024 Telephone encounter Note* Telephone Encounter - Suzanna Dawson PA-C - 05/20/2024 7:53 AM EDT Negative for hepatitis. [facility]10-25-[facility] Telephone encounter Note* Telephone Encounter - Lupillo Moura LPN - 05/17/2024 8:53 AM EDT Left additional message for pt to contact office. Lupillo Moura LPN [facility]10-24-2024 Telephone encounter Note* Telephone Encounter - Lupillo Moura LPN - 05/16/2024 11:25 AM EDT Also sent pt a [facility] with phone numbers. Lupillo Moura LPN [facility]10-23-[facility]24 Telephone encounter Note* Telephone Encounter - Lupillo Moura LPN - 05/15/2024 1:16 PM EDT Left message for pt to contact office for phone numbers. Dr Chacon [phone] Dr Barron [phone]. Please have pt contact them to schedule if he does not hear from their offices. All info has been faxed to Dr Chacon and Dr Barron as per below. Lupillo Moura LPN [facility]10-23-[facility] Telephone encounter Note* Telephone Encounter - Suzanna Dawson PA-C - 05/15/2024 12:46 PM EDT Consult placed. Please give patient phone numbers to schedule. [facility] Telephone encounter Note* Telephone Encounter - [...] September per patient request. Pineda Styles RN [facility]10-23-2024 Telephone encounter Note* Telephone Encounter - Lupillo Moura LPN - 05/15/2024 9:18 AM EDT Left message for pt to contact office. 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 We need to get him in with a liver specialist. Does he wish to stay [place] [facility]. Or does he prefer to stay with [facility]? I also need to do a hepatitis panel on him. He had declined hep C screening in past but given this finding, I think we need to check this. Also did he ever see dr. Barron (urology) for his kidney cysts/lesion?? Suzanna Dawson PA-C [facility]10-22-[facility] Telephone encounter Note* Telephone Encounter - Lupillo Moura LPN - 05/14/2024 2:45 PM EDT Received results of pt's US ordered by Suzanna mosher at [facility]. Lupillo Moura LPN Scan on 05/14/2024 2:31 PM by Provider, ELIZABETH Smart: Ultrasound [facility]10-21-2024 Telephone encounter Note* Telephone Encounter - Kirsten Marc RN - 05/13/2024 3:14 PM EDT Patient calling with an order related question. Information provided. Kirsten Marc RN [facility]10-21-2024 Miscellaneous Notes* Telephone Encounter - Kirsten Marc RN - 05/13/2024 3:14 PM EDT Patient calling with an order related question. Information provided. Kirsten Marc RN documented in this encounterPike Community Hospital10-09-2024 Instructions* Patient Instructions* Suzanna Dawson PA-C [...] review all the medicines you take, even cdur-dey-[id number] medicines. As you get older, the way [...] have certain medical conditions. documented in this encounterPike [facility] Hospital10-09-2024 NoteHNO ID: [id number] Author: SUZANNA DAWSON PA-C Service: ? 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 [...] place - ICD9: V49.89, ICD10: Z78.9 6. Financial Accounting Analyst's nodules - ICD9: 698.3, ICD10: L28.1 Advised [...] elevated Will get US with elastrography at [facility]. 16. Alcohol abuse - ICD9: 305.00, ICD10: F10.10 Advised to decrease Avoid binge Suzanna Dawson PA-C I spent a total of 45 minutes on the date of the service which included preparing to see the patient, [id number] patient care, completing clinical documentation, obtaining and/or reviewing separately obtained history, performing a medically appropriate examination, counseling and educating the pat ient/family/caregiver, and ordering medications, tests, or procedures. documented in this encounterPike [facility] Hospital10-09-2024 Telephone encounter Note * Telephone Encounter - Alexia Waggoner LPN - 05/01/2024 8:29 AM EDT Lisa with Dr. Vargas's office (cardiology) called for recent lipid lab work. Pt has an apt. Pt was identified with name and date of . FAX: [phone]. Done. Alexia Waggoner LPN [facility]10-09-2024 Miscellaneous Notes* Telephone Encounter - Alexia Waggoner LPN - 05/01/2024 8:29 AM EDT Lisa with Dr. Vargas's office (cardiology) called for recent lipid lab work. Pt has an apt. Pt was identified with name and date of . FAX: [phone]. Done. Alexia Waggoner LPN documented in this encounterPike Community Hospital09-25-2024 NoteHNO ID: [id number] Author: GANESH WHITE MA Service: ? Author Type: Lamp Developer Type: Progress Notes Filed: 04/17/2024 18:44 Note Text: Scan on 04/15/2024 12:56 PM by ProviderBing PA-C: Consultation - Cardiology Ganesh White [facility]09-25-2024 History of Present illness Narrative* Ganesh White MA - 04/17/2024 6:44 PM EDT Scan on 04/15/2024 12:56 PM by ProviderBing PA-C: Consultation - Cardiology Ganesh White MA documented in this encounterPike Community Hospital09-12-2024 NoteHNO ID: [id number] Author: NI SAUCEDA APRN.PONCHO Service: ? Author Type: Nurse Practitioner Type: Progress Notes Filed: 04/04/2024 11:56 Note Text: Chief Complaint Patient presents with: ER F/U HPI Nazario Hutton is a 73 year old male who presents here today for Above Complaints.. Patient presents for ER follow up. Patient seen in [facility] for angioedema. Losartan d/c'd by Dr. 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 (more content not included)...[facility]09-12-2024 History of Present illness Narrative* Ni Sauceda APRN.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 MANAGER - 04/04/2024 11:48 AM EDT Chief Complaint Patient presents with: ER F/U HPI Nazario Hutton is a 73 year old male who presents here today for Above Complaints.. Patient presents for ER follow up. Patient seen in [facility] for angioedema. Losartan d/c'd by Dr. 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 Scheduled ER appt for 04/04/2024. Pineda Styles RN [facility]09-09-2024 Miscellaneous Notes* Telephone Encounter - Pineda [...] PCP/team. /Ganesh White MA documented in this encounterPike [facility] Hospital09-09-2024 Telephone encounter Note * Telephone Encounter - Rupal Chinchilla MA - 04/01/2024 2:54 PM EDT Unable to reach patient. Left VM to return call to office. Please read below and advise & assist patient with scheduling ER F/U with PCP team. Rupal Chinchilla MA [facility]09-09-2024 Telephone encounter Note* Telephone Encounter - Ganesh White MA - 04/01/2024 2:28 PM EDT Patient was in ER for allergic reaction. Dr. Beasley message. Advise patient to stop the losartan. Though it is rare it can cause angio edema. Needs f/u in 3-5 days. Please assist patient for follow up with PCP/team. /Ganesh White MA [facility]09-09-2024 NoteHNO ID: [id number] Author: GANESH WHITE MA Service: ? Author Type: Lamp Developer Type: Progress Notes Filed: 04/01/2024 14:28 Note Text: Left message for patient to contact office. Ganesh White [facility]09-09-2024 History of Present illness Narrative* Ganesh White [...] Medicine Ganesh White MA documented in this encounterPike Community Hospital09-09-2024 NoteHNO ID: [id number] Author: VALERIANO BEASLEY MD Service: ? Author Type: Physician Type: Progress Notes Filed: 04/01/2024 13:49 Note Text: Advise patient to stop the losartan. Though it is rare it can cause angio edema. Needs f/u in 3-5 days.[facility]09-09-2024 NoteHNO ID: [id number] Author: GANESH WHITE MA Service: ? Author Type: Lamp Developer Type: Progress Notes Filed: 04/01/2024 13:46 Note Text: Scan on 03/29/2024 4:41 PM by ProviderBing PA-C: Consultation - Emergency Medicine Ganesh White [facility]09-06-2024 NoteHNO ID: [id number] Author: GARDENIA VILLAREAL APRN.PONCHO Service: ? Author [...] agreeable to this and will go to [place] ED. Offered ambulance transport-he refused. He appears stable to self-transport. Report sent via ER passport. Gardenia Villareal APRN.[facility] History of Present illness Narrative* Gardenia Villareal APRN.[facility] - 03/29/2024 11:23 AM EDT Nazario Hutton is a 73 year old male who presents with a swollen tongue. Onset- when he awoke today. Denies difficulty breathing. No pain. Is able to swallow but has difficulty-sometimes has to spit saliva out. He is referred to ER for further evaluation and treatment. He is agreeable to this and will go to [place] ED. Offered ambulance transport-he refused. He appears stable to self-transport. Report sent via ER passport. Gardenia Villareal APRN.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 MANAGER documented in this encounterPike Community Hospital07-17-2024 Telephone encounter Note * Telephone Encounter - Bhavani Turk LPN - 02/07/2024 9:19 AM EDT Please assist pt in scheduling CTA. Please assist in scheduling a follow up with neuro ODALIS after scans. Bhavani Turk LPN [facility]07-17-2024 Miscellaneous Notes* Telephone Encounter - Bhavani [...] you, Patria Khanna MD documented in this encounterPike Community Hospital07-17-2024 Note* Addendum Note - Patria Khanna Jr., MD - 02/07/2024 8:45 AM EDTAddended by: PATRIA KHANNA on: 02/07/2024 08:45 AM Modules accepted: Orders [facility]07-17-2024 Telephone encounter Note* Telephone Encounter - Patria Khanna Jr., MD - 02/07/2024 8:43 AM EDT Please schedule pt with neuro ODALIS JOSE LUIS for follow up. I will also place order for vascular consult now. If no stenosis on CTA we can cancel. Patria Khanna MD [facility]07-16-2024 Telephone encounter Note* Telephone Encounter - Sam Littlejohn RN - 02/06/2024 4:01 PM EDT Pt returned the call and will proceed with CTA head/neck with IV contrast as soon as possible. Please contact pt to set up appt as soon as order is placed. Pt aware it needs to be done as soon as possible. Pt has viewed some results on his [employer]. Pt has a lot of questions. Answered to the best ofmy knowledge- aware that further testing will help answer some of his questions. Explained to pt that the MRI of the brain, MRA of the brain and the MRA of the carotid all had the same Impression. [facility]07-16-[facility]24 Telephone encounter Note* Telephone Encounter - Bhavani Turk LPN - 02/06/2024 11:12 AM EDT TC to pt with no answer, left VM to return call. Bhavani Turk LPN [facility]07-16-2024 Telephone encounter Note* Telephone Encounter - [...] me know. Thank you, Patria Khanna MD [facility]07-16-2024 History of Present illness Narrative* Dariana [...] PATIENT PRESENTS WITH AN IMPLANTABLE OR ATTACHED MAINSPRING BARREL ASSEMBLY CLEANER: No RADIOLOGY DEPARTMENT: MR; Exam(s) Completed: Head: Routine Brain [place] MRA Neck: Carotids MRA, bilateral PERIPHERAL IV DATA: Not applicable SIGNED BY: RT Brandon(Federico) February 06, 2024 9:30 AM documented in this encounterPike Community Hospital07-16-2024 NoteHNO ID: [id number] Author: DARIANA COLLIER RT(R) Service: ? Author [...] PATIENT PRESENTS WITH AN IMPLANTABLE OR ATTACHED MAINSPRING BARREL ASSEMBLY CLEANER: No RADIOLOGY DEPARTMENT: MR; Exam(s) Completed: Head: Routine Brain [place] MRA Neck: Carotids MRA, bilateral PERIPHERAL IV DATA: Not applicable SIGNED BY: RT Brandon(R) February 06, 2024 9:30 [facility]07-10-2024 NoteHNO ID: [id number] Author: LUPILLO MOURA LPN Service: ? Author Type: LICENSED NURSE Type: Progress Notes Filed: 01/31/2024 11:34 Note Text: Scan on 01/31/2024 10:24 AM by ProviderBign PA-C: Consultation - [facility] History of Present illness Narrative* Lupillo Moura LPN - 01/31/2024 11:34 AM EDT Scan on 01/31/2024 10:24 AM by ProviderBing PA-C: Consultation - Cardiology documented in this encounterPike [facility] Hospital06-26-2024 Telephone encounter Note * Telephone Encounter - Laly Bhandari OCCA - 01/17/2024 10:49 AM EDT Multiple attempts by phone and [facility] message to reach patient regarding abnormal lab results. Letter mailed to patients home address requesting return call to office. YASMEEN Childers [facility]06-26-2024 Miscellaneous Notes* Telephone Encounter - Laly [...] answer brief message to contact a nurse. [employer] logon . Ary Waggoner LPN * Telephone [...] supplement. Patria Khanna MD documented in this encounterPike Community Hospital06-25-2024 Telephone encounter Note * Telephone Encounter - Ary Waggoner LPN - 01/16/2024 6:00 PM EDT Phone call placed, no answer brief message to contact a nurse. [employer] logon . Ary Waggoner LPN [facility]06-21-2024 Telephone encounter Note* Telephone Encounter - Bhavani Turk LPN - 01/12/2024 4:07 PM EDT TC to pt with no answer, left VM to return call. Bhavani Turk LPN [facility]06-17-[facility]24 Telephone encounter Note* Telephone Encounter - Bhavani Turk LPN - 01/08/2024 4:17 PM EDT Attempted to call pt. Unable to reach him due to static on phone lines. Will try again. Bhavani Turk LPN [facility]06-17-2024 Telephone encounter Note* Telephone Encounter - [...] on B Vitamin supplement. Patria Khanna MD [facility]06-17-2024 Telephone encounter Note* Telephone Encounter - [...] Dye LPN January 08, 2024 3:16 PM [facility]06-17-2024 Miscellaneous Notes* Telephone Encounter - Teodoro [...] 08, 2024 3:16 PM documented in this encounterPike Community Hospital06-10-2024 History of Present illness Narrative* Patria [...] for MRI showing L4-5 disc degeneration R>L ([facility]) and EMG/NCV showing R L5 radic but no evidence of peripheral neuropathy (performed at [facility]). Numbness in hands and feet that [...] trauma. Balance issues started after having an FL couple years ago. No neck pain. Can get pain in the posterior cranium over the javier greater occipital nerves. States everything is kind of random. Denies history of diplopia, vision loss or change inspeech. 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 in which he would [...] and Hgb dropped to 6 - at [facility] - had colonoscopy and during which [...] due to lower GI bleed from diverticulosis) Financial Accounting Analyst's nodules 03/15/2021 Valvular heart disease 05/18/2023 Echo [...] and there occurring in the setting of FL/cardiac condition, do need to be concerned that [...] benefit of repeating EMG/NCV as will not shredder picker small fiber disorder and still too [...] which included preparing to see the patient, fnrj-ga-ihks patient care, completing clinical documentation, obtaining and/or [...] 01/01/2024 3:32 PM EDT documented in this encounterPike Community Hospital06-06-2024 Telephone encounter Note * Telephone Encounter - Sean Abbasi RN - 12/28/2023 4:17 PM EDT Patient phoned to ask if Dr. Khanna ordered labs for his appt on Monday. Advised Dr Khanna did not order labs for patient. [facility]06-06-2024 Miscellaneous Notes* Telephone Encounter - Sean Abbasi RN - 12/28/2023 4:17 PM EDT Patient phoned to ask if Dr. Khanna ordered labs for his appt on Monday. Advised Dr Khanna did not order labs for patient. documented in this encounterPike Community Hospital05-28-2024 History of Present illness Narrative* Karla Villa LPN - 12/19/2023 1:06 PM EDT Scan on 12/18/2023 11:18 AM by Provider, ELIZABETH Smart: Stress Test Karla Villa LPN documented in this encounterPike Community Hospital03-26-2024 Miscellaneous Notes* Telephone Encounter - Valeriano [...] to see if that is covered. Carleen Begr LPN documented in this encounterPike Community Hospital03-26-2024 Miscellaneous Notes* Telephone Encounter - Ganesh [...] his appointment please advise documented in this encounterPike Community Hospital03-23-2024 History of Present illness Narrative* Genny [...] 14, 2023 9:50 AM documented in this encounterPike Community Hospital03-12-2024 Miscellaneous Notes* Telephone Encounter - Carleen Berg LPN - 10/03/2023 11:43 AM EDT Spoke to pt today about another issue. 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 Carleen Berg LPN * Telephone Encounter - Maribel Koenig PSS - 09/01/2023 1:04 PM EST CD READY FOR SAMPLE GRADER AT [facility] RAD[facility] * Telephone Encounter - Abril Del Rosario - 09/01/2023 11:44 AM EST Patient is requesting a copy of MRI (08/10), Cat Scan (08/29), and Ultrasound (this month). documented [facility] History of Present illness Narrative* Lupillo Moura LPN - 09/29/2023 7:53 AM EST Scan on 09/28/2023 11:17 AM by ProviderBing PA-C: Echo Scan on 09/28/2023 11:17 AM by Provider, External, PA-C: Echo documented in this [facility]03-04-2024 Miscellaneous Notes* Telephone Encounter - Valeriano [...] notify patient. Grisel Hughes documented in this encounterP[facility]02-15-[facility]24 History of Present illness Narrative* Lupillo Moura LPN - 09/07/2023 7:33 AM EST Scan on 09/05/2023 5:03 PM by ProviderBing PA-C: Consultation - Cardiology documented in [facility]02-14-[facility]24 History of Present illness Narrative* Lupillo Moura LPN - 09/06/2023 8:17 AM EST Scan on 09/05/2023 1:01 PM by ProviderBing PA-C: Consultation - Cardiology Scan on 09/05/2023 1:24 PM by Bing Salmeron PA-C: Miscellaneous Lab documented in this encounterP[facility]02-12-2024 History of Present illness Narrative* Kelsea Moe LPN - 09/04/2023 3:03 PM EST Scan on 09/02/2023 12:52 PM by ProviderBing PA-C: X-ray documented in this [facility]02-09-2024 History of Present illness Narrative* Lupillo Moura LPN - 09/01/2023 12:21 PM EST Scan on 09/01/2023 11:52 AM by Bing Salmeron PA-C: Consultation - Orthopedics documented in this [facility]02-07-2024 Miscellaneous Notes* Telephone Encounter - Karla [...] or Dr. Savage locally. documented in this encounterP[facility]02-05-[facility]24 History of Present illness Narrative* Raquel [...] PATIENT PRESENTS WITH AN IMPLANTABLE OR ATTACHED MAINSPRING BARREL ASSEMBLY CLEANER: No ALLERGIES: Reviewed and unchanged CONTRAST ALLERGY: [...] 2023 TIME: 3:13 PM documented in this encounterP[facility]02-02-2024 History of Present illness Narrative* Kirsten Denny MA - 08/25/2023 10:03 AM EST POPULATION HEALTH NAVIGATION OUTREACH Action/I HM Due: Medicare wellness 2023 (last - 04/20/23). PCP follow up currently scheduled for 10/19/23. Left voice mail for patient to call back. [employer] message sent. Patient Identified by Name and : NO Outreach Outcome/Action Unable to reach patient: Left message [employer] message sent Did you use a PCP flex slot to schedule this appointment? N/A Reason for Outreach Care Gap or Scheduling/Wellness visits Payer: Payor: [facility] MEDICARE / Plan: [facility] MEDICARE HMO / Product Type: HMO / Care Gap Reviewed:: Annual Wellness visit Reminder: Reminder note to check Health Maintenance for items below Health Maintenance items due: RSV Vaccine(1 - 1-dose 60+ series) Never done BP Controlled (<130/80) due on 03/15/2022 Advance Directive Discussion due on 07/24/2023 Navigation Signature: Kirsten Denny MA August 25, 2023 10:03 AM documented in this encounterP[facility]01-31-2024 Miscellaneous Notes* Telephone Encounter - Pineda [...] with and without contrast. documented in this encounterP[facility]11-09-2023 History of Present illness Narrative* Ganesh [...] ELIZABETH: Consultation - Pulmonary documented in this encounterP[facility]11-02-2023 Procedure [facility]10-26-2023 Instructions* Patient Instructions* Valeriano Beasley MD - 05/18/2023 10:54 AM EDT Start taking over the counter B12 1000 mcg one a day documented in this encounterP[facility]10-26-2023 History of Present illness Narrative* Valeriano [...] due to lower GI bleed from diverticulosis) Financial Accounting Analyst's nodules 03/15/2021 Previous Surgical History PAST SURGICAL [...] discussed. Valeriano Beasley MD documented in this encounterP[facility]09-28-2023 History of Present illness Narrative* Lupillo [...] due to lower GI bleed from diverticulosis) Financial Accounting Analyst's nodules 03/15/2021 Previous Surgical History PAST SURGICAL [...] k/uL 0.83 (L) 0.65 (L) 0.91 (L) Wilkinson% % 7.9 11.7 13.9 Abs Wilkinson <0.87 k/uL 0.91 (H) 0.96 (H) 1.04 [...] BMI 29.90 kg/(m^2) - Patient was counseled rcod-ju-jfin by myself (the billing provider) for the [...] will check NCS/EMG of lower extremities at [facility] 13. Atrophy of muscle of right [...] which included preparing to see the patient, dipk-is-smud patient care, completing clinical documentation, performing a medically appropriate examination, counseling and educating the patient/family/caregiver and ordering medications, tests, or procedures. Valeriano Beasley MD documented in this encounterP[facility]09-28-2023 Instructions* Patient Instructions* Valeriano Beasley MD - 04/20/2023 11:42 AM EDT Please bring in copies of your power of tax associate attorney for health care and living will. Consider getting the shingrix vaccine for the prevention of shingles from a local pharmacy Also consider getting a Tdap for tetanus update at the health dept. documented in this encounterPike [facility]06-16-2023 History of Present illness Narrative* Lupillo Moura LPN - 01/06/2023 7:50 AM EDT Scan on 01/05/2023 2:11 PM by External Provider, ELIZABETH: Consultation - GI documented in this encounterP[facility]04-21-2023 Miscellaneous Notes* Telephone Encounter - Valeriano [...] MD * Telephone Encounter - [facility] [facility] [place]10/2022 3:50 PM EDT Patient has [...] a mail order 90 day supply to [facility] Patient aware RX will be sent to pharmacy. No need to notify patient. [facility] in this encounterP[facility] Hospital04-20-2023 Miscellaneous Notes* Telephone Encounter - [facility] [place] 11/10/2022 3:59 PM EDT Patient has [...] No need to notify patient. [facility] in this [facility]03-30-2023 History of Present illness Narrative* Ganesh White MA - 10/20/2022 3:33 PM EDT Scan on 10/20/2022 9:25 AM by External Provider: Consultation - GI Ganesh White MA documented in this encounterP[facility]03-23-2023 Miscellaneous Notes* Telephone Encounter - Lupillo [...] follow up with gastro documented in this encounterP[facility]03-22-2023 History of Present illness Narrative* Suzanna [...] due to lower GI bleed from diverticulosis) Financial Accounting Analyst's nodules 03/15/2021 Previous Surgical History PAST SURGICAL [...] Lymph 1.00 - 4.00 k/uL 0.83 (L) Wilkinson% % 7.9 Abs Wilkinson <0.87 k/uL 0.91 (H) Eosin% % 3.6 [...] today. Suzanna Dawson PA-C documented in this encounterP[facility]02-24-2023 Miscellaneous Notes* Telephone Encounter - Teodoro Dye LPN - 09/16/2022 2:36 PM EST Patient returned call and went over results, notes from Dr Beasley with understanding. Aware lab results were faxed to Log Haul Operator office. * Telephone Encounter - Ganesh White [...] walking. Patient needs labs faxed to his administrative assistant receptionist, Dr. Franklin Francois at [facility] phone # [phone] documented in this encounterPike [facility] Hospital02-22-2023 History of Present illness Narrative* Valeriano [...] oz beers a day. Patient presented to [place] [facility] on 09/02/2022 with c/o bloody diarrhea. [...] due to lower GI bleed from diverticulosis) Financial Accounting Analyst's nodules 03/15/2021 Previous Surgical History PAST SURGICAL [...] which included preparing to see the patient, nsrg-qa-bkue patient care, completing clinical documentation, performing a medically appropriate examination, counseling and educating the patient/family/caregiver and ordering medications, tests, or procedures. Valeriano Beasley MD documented in this encounterPike [facility]02-17-[address] Hagen [facility] September 09, 2022 9:34pm Note Date/Time September 09, 2022 7:42pm [facility] Medical Records Department [address] [place] [address] Progress Note - Hospitalist 09/09/221940 MR#: [id number] Acct: [id number] Name: NAZARIO HUTTON Rep #:[id number] : 1950 71 From: Rizwana Hagen MD PCP: Dr. Valeriano Beasley MD Status:ADM IN Location: [place] [address] Hospitalist Note Received call about swollen right [...] Cosigner Signature (if applicable): CC: ~ Signed [facility] Work Phone: [phone]) 388-376502-17-2023 Progress note Author Ahmet Chacon [facility] September 09, 2022 7:08pm Note Date/Time September 09, 2022 7:08pm [facility] Medical Records Department [address] [place] [address] Progress Note 09/09/22 0700 MR#: [id number] Acct: [id number] Name: NAZARIO HUTTON Rep #:[id number] : 1950 71 From: Ahmet Chacon DO PCP: Dr. Valeriano Beasley MD Status:ADM IN Location: [place] [address]- 1 Subjective Subjective Patient has not had [...] (Auto) 67.3, Lymph % (Auto) 10.0 L, Wilkinson % (Auto) 13.8 H, Eos % (Auto) [...] elevated myocardial infarction): PLAN: Non-ST segment elevation FL treated with heparin over the weekend and [...] GI standpoint. Charges/Coding Visit Charges Inpatient E&M: 32143 Subs Hosp L3 09/09/221907 <Electronically signed by Ahmet Chacon DO> Ahmet Chacon DO Cosigner Signature (if applicable): CC: ~ Signed [facility] Work Phone: [phone]) 799-368202-17-[address] Crespo [facility] February 18th, 2023 1:28pm Note Date/Time September 09, 2022 2:54pm [facility] Medical Records Department [address] [place] [address] Discharge Summary 09/09/22 1446 MR#: [id number] Acct: [id number] Name: NAZARIO HUTTON Rep #:[id number] : 1950 71 From: Obdulio goyal MD PCP: Dr. Valeriano Beasley MD Status:ADM IN [facility] Providers Date of Admission: 09/02/22 Primary Care Physician: Dr. Valeriano Beasley MD Consultations 09/02/22 16:11 Consult: Gastroenterology Routine Consulting Provider: [facility] Reason for Consult: GI bleed, ABLA, [...] of note, Gout who presents to the [facility] ED on 09/02/22 with history of [...] as IV cipro and IV flagyl. From [facility] system last noted baseline labs 04/14/22 14.4, 44.2, macrocytic, 04/14/22 BUN/Cr 10/0.68. Hospital Course: 1. Rectal bleeding with acute on chronic anemia and hypotension/non-STEMI type II with a history of CAD status post stent/HTN/HLD?71-year-old male presented [facility] with bloody diarrhea. He initially had [...] doing. Because of his non-STEMI at at [facility]'s insistence he was started on a heparin [...] (Auto) 67.3, Lymph % (Auto) 10.0 L, Wilkinson % (Auto) 13.8 H, Eos % (Auto) [...] Instructions: Resume on 10/01/22. Hold until your PCP/Log Haul Operator decide to restart Label Comments: TAKE 1 [...] Self Care Charges/Coding Visit Charges Inpatient E&M: 43825 Disch Hosp >30min 09/09/22 0638 <Electronically signed by Obdulio Crespo MD> Cosigner [...] going home today. Visit Charges Inpatient E&M: 22711 Disch Hosp >30min 09/10/22 1328<Electronically signed by Obdulio Crespo MD> Cosigner Signature (if applicable): cc: Dr. Valeriano Beasley MD; Dr. Obdulio Crespo MD ~* Signed [facility] Work Phone: [phone]) 401-190002-17-[address] Crespo [facility] September 09, 2022 9:46am Note Date/Time September 09, 2022 9:42am [facility] Medical Records Department [address] [place] [address] Instructions for Home/Discharge Instructions 09/09/22 0941 MR#: [id number] Acct: [id number] Name: NAZARIO HUTTON Rep #:[id number] : 1950 71 From: Obdulio goyal MD [...] Instructions: Resume on 10/01/22. Hold until your PCP/Log Haul Operator decide to restart Label Comments: TAKE 1 [...] Obdulio Crespo MD>Obdulio Crespo MD CC: Dr. Jael Ramos MD; Dr. Lukas Cuevas MD; Dr. Valeriano Beasley MD; Dr. Melissa Corbin MD ~ Signed [facility] Work Phone: [phone]) 605-848302-16-2023 Progress note Author Ahmet Chacon [facility] September 08, 2022 6:54pm Note Date/Time September 08, 2022 6:54pm [facility] Medical Records Department [address] [place] [address] Progress Note 09/08/22 1853 MR#: [id number] Acct: [id number] Name: NAZARIO HUTTON Rep #:[id number] : 1950 71 From: Ahmet Chacon DO PCP: Dr. Valeriano Beasley MD Status:ADM IN Location: [place] [address] Subjective Subjective Patient says that he still feels fatigued and weak. I explained to him that he did have a non-ST segment elevation FL secondary to demand ischemia from acute blood [...] (Auto) 65.0, Lymph % (Auto) 10.4 L, Wilkinson % (Auto) 15.3 H, Eos % (Auto) [...] elevated myocardial infarction): PLAN: Non-ST segment elevation FL treated with heparin over the weekend and [...] GI standpoint. Charges/Coding Visit Charges Inpatient E&M: 32971 Subs Hosp L3 09/08/22 185 <Electronically signed by Ahmet Chacon DO> Ahmet Chacon DO Coschucker Signature (if applicable): CC: ~ Signed [facility] Work Phone: [phone]) 623-917402-16-[address] Crespo [facility] September 08, 2022 4:14pm Note Date/Time September 08, 2022 4:14pm [facility] Medical Records Department [address] [place] [address] Progress Note - Hospitalist 09/08/22 1613 MR#: [id number] Acct: [id number] Name: NAZARIO HUTTON Rep #:[id number] : 1950 71 From: Obdulio goyal MD PCP: Dr. Valeriano Beasley MD Status:ADM IN Location: [place] [address] Reason for Visit Reason for Visit: Diagnoses [...] (Auto) 65.0, Lymph % (Auto) 10.4 L, Wilkinson % (Auto) 15.3 H, Eos % (Auto) [...] mild segmental systolic dysfunction. Records requested from [facility] * Appreciate cardiology's assistance, will restart Plavix by itself in about a week #Acute alcohol withdrawal * patient has a history of heavy alcohol use, and drinks 4-6 drinks daily. * alcohol withdrawal protocol with ativan. * on folic acid, thiamine and multivitamin. DVT: SCDs Charges/Coding Visit Charges Inpatient E&M: 37955 Subs Hosp L2 09/08/22 1614 <Electronically signed by Obdulio Crespo MD> Cosigner Signature (if applicable): CC: ~ Signed [facility] Work Phone: [phone]) 250-664802-15-2023 Progress note Author Ahmet Friend [facility] September 07, 2022 7:30pm Note Date/Time September 07, 2022 7:30pm [facility] Medical Records Department [address] [place] [address] Progress Note 09/07/221928 MR#: [id number] Acct: [id number] Name: NAZARIO HUTTON Rep #:[id number] : 1950 71 From: Ahmet Friend PCP: Dr. Valeriano Beasley MD Status:ADM IN Location: [place] [id number]- 1 Subjective Subjective Patient did have a [...] (Auto) 69.9, Lymph % (Auto) 8.5 L, Wilkinson % (Auto) 11.9 H, Eos % (Auto) [...] elevated myocardial infarction): PLAN: Non-ST segment elevation FL treated with heparin over the weekend and [...] GI standpoint. Charges/Coding Visit Charges Inpatient E&M: 08899 Subs Hosp L3 09/07/221929 <Electronically signed by Ahmet Chacon DO> Ahmet Chacon DO Cosigner Signature (if applicable): CC: ~ Signed [facility] Work Phone: [phone]) 680-538702-15-[address] Crespo [facility] September 07, 2022 12:54pm Note Date/Time September 07, 2022 12:54pm [facility] Medical Records Department [address] [place] [address] Progress Note - Hospitalist 09/07/22 1251 MR#: [id number] Acct: [id number] Name: NAZARIO HUTTON Rep #:[id number] : 1950 71 From: Obdulio goyal MD PCP: Dr. Valeriano Beasley MD Status:ADM IN Location: [place] [address] Reason for Visit Reason for Visit: Diagnoses [...] (Auto) 69.9, Lymph % (Auto) 8.5 L, Wilkinson % (Auto) 11.9 H, Eos % (Auto) [...] mild segmental systolic dysfunction. Records requested from [facility] * Appreciate cardiology's assistance, will restart Plavix by itself in about a week #Acute alcohol withdrawal * patient has a history of heavy alcohol use, and drinks 4-6 drinks daily. * alcohol withdrawal protocol with ativan. * on folic acid, thiamine and multivitamin. DVT: SCDs Charges/Coding Visit Charges Inpatient E&M: 43072 Subs Hosp L2 09/07/22 1254 <Electronically signed by Obdulio Crespo MD> Cosigner Signature (if applicable): CC: ~ Signed [facility] Work Phone: [phone]) [phone] Cuevas [facility] September 07, 2022 8:04am Note Date/Time September 07, 2022 8:03am [facility] Medical Records Department [address] [place] [address] Progress Note - Cardiology 09/07/22 0800 MR#: [id number] Acct: [id number] Name: NAZARIO HUTTON Rep #:[id number] : 1950 71 From: Lukas Cuevas MD PCP: Dr. Valeriano Beasley MD Status:ADM IN Location: [facility] RTP690- 1 Subjective Subjective Patient seen and evaluated. [...] (Auto) 69.9, Lymph % (Auto) 8.5 L, Wilkinson % (Auto) 11.9 H, Eos % (Auto) [...] (Auto) 69.9, Lymph % (Auto) 8.5 L, Wilkinson % (Auto) 11.9 H, Eos % (Auto) [...] Cosigner Signature (if applicable): CC: ~ Signed [facility] Work Phone: 1(876) 311-328102-14-2023 Progress note Author Ahmet Friend [facility] September 06, 2022 7:35pm Note Date/Time September 06, 2022 7:35pm [facility] Medical Records Department [address] [place] [address] Progress Note 09/06/221932 MR#: [id number] Acct: [id number] Name: NAZARIO HUTTON Rep #:[id number] : 1950 71 From: Ahmet Friend DO PCP: Dr. Valeriano Beasley MD Status:ADM IN Location: [facility] UAS848- 1 Subjective Subjective Patient underwent cardiac catheterization [...] % (Auto) 69.2, Lymph % (Auto) 10.6L, Wilkinson % (Auto) 10.7 H, Eos % (Auto) [...] elevated myocardial infarction): PLAN: Non-ST segment elevation FL treated with heparin over the weekend and [...] discharged tomorrow. Charges/Coding Visit Charges Inpatient E&M: 24649 Subs Hosp L3 09/06/221934 <Electronically signed by Ahmet Friend DO> Ahmet Friend DO Cosigner Signature (if applicable): CC: ~ Signed [facility] Work Phone: 1([phone]) 295-753202-14-[address] Cuevas [facility] September 06, 2022 5:44pm Note Date/Time September 04, 2022 6:46pm [facility] Medical Records Department [address] [place] [address] Progress Note - Cardiology 09/04/22 1845 MR#: [id number] Acct: [id number] Name: NAZARIO HUTTON Rep #:[id number] : 1950 71 From: Lukas Cuevas MD PCP: Dr. Valeriano Beasley MD Status:ADM IN Location: [place] [address] Subjective Subjective Patient seen and evaluated. Events [...] 70.3 H, Lymph % (Auto) 12.1 L, Wilkinson % (Auto) 11.5 H, Eos % (Auto) [...] 70.3 H, Lymph % (Auto) 12.1 L, Wilkinson % (Auto) 11.5 H, Eos % (Auto) [...] Cosigner Signature (if applicable): CC: ~ Signed [facility] Work Phone: [phone]) 428-269402-14-[address] Crespo [facility] September 06, 2022 5:01pm Note Date/Time September 06, 2022 5:01pm [facility] Medical Records Department [address] [place] [address] Progress Note - Hospitalist 09/06/22 1656 MR#: [id number] Acct: [id number] Name: NAZARIO HUTTON Rep #:[id number] : 1950 71 From: Obdulio goyal MD PCP: Dr. Valeriano Beasley MD Status:ADM IN Location: [place] [address] Reason for Visit Reason for Visit: Diagnoses [...] % (Auto) 69.2, Lymph % (Auto) 10.6L, Wilkinson % (Auto) 10.7 H, Eos % (Auto) [...] mild segmental systolic dysfunction. Records requested from [facility] * cardiology on board #Acute alcohol withdrawal * patient has a history of heavy alcohol use, and drinks 4-6 drinks daily. * alcohol withdrawal protocol with ativan. * on folic acid, thiamine and multivite. DVT: SCDs Charges/Coding Visit Charges Inpatient E&M: 74940 Subs Hosp L2 09/06/22 1701 <Electronically signed by Obdulio Crespo MD> Cosigner Signature (if applicable): CC: ~ Signed [facility] Work Phone: [phone]) 717-748302-14-[address] Cuevas [facility] September 06, 2022 8:50am Note Date/Time September 06, 2022 8:50am [facility] Medical Records Department [address] [place] [address] Progress Note - Cardiology 09/06/22 0847 MR#: [id number] Acct: [id number] Name: NAZARIO HUTTON Rep #:[id number] : 1950 71 From: Lukas Cuevas MD PCP: Dr. Valeriano Beasley MD Status:ADM IN Location: [place] [address] Subjective Subjective Patient seen and evaluated. Patient [...] % (Auto) 69.2, Lymph % (Auto) 10.6L, Wilkinson % (Auto) 10.7 H, Eos % (Auto) [...] (Auto) 69.2, Lymph % (Auto) 10.6 L, Wilkinson % (Auto) 10.7 H, Eos % (Auto) [...] to call if any issues arise. 09/06/22 7228 <Electronically signed by Lukas Cuevas MD> Cosigner Signature (if applicable): CC: ~ Signed [facility] Work Phone: 1(260) 963-862302-13-2023 Progress note Author Ahmet Friend [facility] September 05, 2022 5:31pm Note Date/Time September 05, 2022 5:23pm [facility] Medical Records Department [address] [place] [address] Progress Note 09/05/22 1722 MR#: [id number] Acct: [id number] Name: NAZARIO HUTTON Rep #:[id number] : 1950 71 From: Ahmet Chacon DO PCP: Dr. Valeriano Beasley MD Status:ADM IN Location: [address] 1 Subjective Subjective Patient underwent to [...] elevated myocardial infarction): PLAN: Non-ST segment elevation FL treated with heparin over the weekend and [...] liquid diet. Charges/Coding Visit Charges Inpatient E&M: 70796 Subs Hosp L3 09/05/22 7009 <Electronically signed by Ahmet Friend DO> Ahmet Friend DO Cosigner Signature (if applicable): CC: ~ Signed [facility] Work Phone: 1(635) 133-705502-13-[address] Crespo [facility] September 05, 2022 4:23pm Note Date/Time September 05, 2022 4:23pm [facility] Medical Records Department [address] [place] [address] Progress Note - Hospitalist 09/05/22 1618 MR#: [id number] Acct: [id number] Name: NAZARIO HUTTON Rep #:[id number] : 1950 71 From: Obdulio goyal MD PCP: Dr. Valeriano Beasley MD Status:ADM IN Location: [place] [address] Reason for Visit Reason for Visit: Diagnoses [...] mild segmental systolic dysfunction. Records requested from [facility] * cardiology on board #Acute alcohol withdrawal * patient has a history of heavy alcohol use, and drinks 4-6 drinks daily. * alcohol withdrawal protocol with ativan. * on folic acid, thiamine and multivite. DVT: SCDs Charges/Coding Visit Charges Inpatient E&M: 31708 Subs Hosp L2 09/05/22 9993 <Electronically signed by Obdulio Crespo MD> Cosigner Signature (if applicable): CC: ~ Signed [facility] Work Phone: [phone]) 777-785302-13-2023 History of Present illness Narrative* Ganesh White MA - 09/05/2022 2:31 PM EST Scan on 09/04/2022 5:29 PM by External Provider: EGD Scan on 09/04/2022 5:41 PM by External Provider: Colonoscopy Scan on 09/04/2022 5:42 PM by External Provider: Colonoscopy Please review. Ganesh White MA documented in [facility]02[facility]23 History of Present illness Narrative* Ganesh White MA - 09/05/2022 2:29 PM EST Scan on 09/04/2022 9:46 AM by External Provider: Consultation - Emergency Medicine Ganesh White MA documented in this encounterP[facility]02-13-[facility]23 History of Past illness Narrative* Problem [...] of this encounter (statuses as of 04/21/2023) [facility] Past illness Narrative* Problem [...] of this encounter (statuses as of 05/19/2023) [facility] Past illness Narrative* Problem [...] of this encounter (statuses as of 06/01/2023) [facility] Past [facility] Narrative* Problem [...] of this encounter (statuses as of 08/25/2023) [facility] [facility] History of Past illness Narrative* Problem [...] of this encounter (statuses as of 08/25/2023) [facility] History of Past illness Narrative* Problem [...] of this encounter (statuses as of 08/29/2023) [facility] History of Past illness Narrative* Problem [...] of this encounter (statuses as of 09/01/2023) [facility] History of Past illness Narrative* Problem [...] of this encounter (statuses as of 09/04/2023) [facility] History of Past illness Narrative* Problem [...] of this encounter (statuses as of 09/06/2023) [facility] History of Past illness Narrative* Problem [...] of this encounter (statuses as of 09/07/2023) [facility] of Past illness Narrative* Problem [...] of this encounter (statuses as of 09/26/2023) [facility] of Past illness Narrative* Problem [...] of this encounter (statuses as of 09/29/2023) [facility] of Past illness Narrative* Problem [...] of this encounter (statuses as of 10/04/2023) [facility] of Past illness Narrative* Problem [...] of this encounter (statuses as of 10/14/2023) [facility] History of Past illness Narrative* Problem [...] of this encounter (statuses as of 10/17/2023) [facility] History of Past illness Narrative* Problem [...] of this encounter (statuses as of 10/17/2023) [facility] History of Past illness Narrative* Problem [...] of this encounter (statuses as of 10/17/2023) [facility] Cuevas [facility] September 05, 2022 7:07am Note Date/Time September 05, 2022 7:07am [facility] Medical Records Department [address] [place] [address] Progress Note - Cardiology 09/05/22705 MR#: [id number] Acct: [id number] Name: NAZARIO HUTTON Rep #:[id number] : 1950 71 From: Lukas Cuevas MD PCP: Dr. Valeriano Beasley MD Status:ADM IN Location: [place] [address]- Subjective Subjective Patient seen and evaluated. Appears [...] 70.3 H, Lymph % (Auto) 12.1 L, Wilkinson % (Auto) 11.5 H, Eos % (Auto) [...] 70.3 H, Lymph % (Auto) 12.1 L, Wilkinson % (Auto) 11.5 H, Eos % (Auto) [...] Cosigner Signature (if applicable): CC: ~ Signed [facility] Work Phone: 1(736) 414-838302-12-[address] Corbin [facility] September 04, 2022 4:15pm Note Date/Time September 04, 2022 2:24pm [facility] Medical Records Department [address] [place] [address] Progress Note - Hospitalist 09/04/22 1419 MR#: [id number] Acct: [id number] Name: NAZARIO HUTTON Rep #:[id number] : 1950 71 From: Melissa Corbin MD PCP: Dr. Valeriano Beasley MD Status:ADM IN Location: [place] [address] Reason for Visit Reason for Visit: Diagnoses [...] 78.2 H, Lymph % (Auto) 9.1 L, Wilkinson % (Auto) 9.7, Eos % (Auto) 2.2, [...] 70.3 H, Lymph % (Auto) 12.1 L, Wilkinson % (Auto) 11.5 H, Eos % (Auto) [...] mild segmental systolic dysfunction. Records requested from [facility] * cardiology on board * for [...] prophylaxis; SCDs. Charges/Coding Visit Charges Inpatient E&M: 01546 [facility] Hosp L3 09/04/22 1615 <Electronically signed by Melissa Corbin MD> Cosigner Signature (if applicable): CC: ~ Signed [facility] Work Phone: 1(118) 357-102902-12-[address] Corbin [facility] September 04, 2022 4:14pm Note Date/Time September 03, 2022 3:04pm [facility] Medical Records Department [address] [place] [address] Progress Note - Hospitalist 09/03/22 1500 MR#: [id number] Acct: [id number] Name: NAZARIO HUTTON Rep #:[id number] : 1950 71 From: Melissa Corbin MD PCP: Dr. Valeriano Beasley MD Status:ADM IN Location: [place] [address]- 1 Reason for Visit Reason for Visit: [...] H, RDW Coeff of Dorie 13.4, Plt Mppvs723, MPV 10.7, Immature Gran % (Auto) 0.600, Neut % (Auto) 74.7 H, Lymph % (Auto) 11.7 L, Wilkinson % (Auto) 11.1 H, Eos % (Auto) 1.6, Baso % (Auto) 0.3, Absolute Neuts (auto) 7.2, Absolute Lymphs (auto) 1.13, Nucleated RBC % 0.2 09/03/22 07:10: Sodium 142, Potassium 3.6, Chloride 112 H, Carbon Dioxide 24.0, Anion Gap 6, BUN 14, Creatinine 0.86, Estim Creat Clear Calc 81.35, Est GFR (MDRD) Af Amer 112, Est GFR (MDRD) Non-Af 93, BUN/Creatinine Ratio 16.2, Gsbsphh69, Calcium 8.0 L, Total Bilirubin 0.70, AST [...] segmental systolic dysfunction. Will request records from [facility] * cycle troponins * consult cardiology. [...] prophylaxis; SCDs. Charges/Coding Visit Charges Inpatient E&M: 92918 Subs Hosp L3 09/04/22 1614 <Electronically signed by Melissa Corbin MD> Cosigner Signature (if applicable): CC: ~ Signed [facility] Work Phone: 1(880) 951-424202-12-2023 Procedure [facility] 09-04-2022 Procedure [facility]02-12-2023 Procedure note [facility]02-12-2023 Procedure [facility] 09-04-2022 Progress note Author Ahmet Chacon [facility] September 04, 2022 10:36am Note Date/Time September 04, 2022 10:36am [facility] Medical Records Department [address] [place] [address] Progress Note 09/04/22 1033 MR#: [id number] Acct: [id number] Name: NAZARIO HUTTON Rep #:[id number] : 1950 71 From: Ahmet Chacon DO PCP: Dr. Valeriano Beasley MD Status:ADM IN Location: [place] [address] Subjective Subjective Patient underwent a colonoscopy for [...] 78.2 H, Lymph % (Auto) 9.1 L, Wilkinson % (Auto) 9.7, Eos % (Auto) 2.2, [...] and followhemoglobin. Charges/Coding Visit Charges Inpatient E&M: 09241 Subs Hosp L2 09/04/22 1036 <Electronically signed by Ahemt Chacon DO> Ahmet Chacon DO Cosigner Signature (if applicable): CC: ~ Signed [facility] Work Phone: 1(895) 343-347502-12-[address] Cuevas [facility] September 04, 2022 9:39am Note Date/Time September 04, 2022 9:35am [facility] Medical Records Department [address] [place] [address] Consultation - Cardiology 09/04/22 0930 MR#: [id number] Acct: [id number] Name: NAZARIO HUTTON Rep #:[id number] : 1950 71 From: Lukas Cuevas MD PCP: Dr. Valeriano Beasley MD Status:ADM IN Location: [place] [address] Assessment & Plan Assessment/Plan (1) NSTEMI (non-ST [...] infarction in November 2021 was taken to [facility] and underwent stenting of one vessel. [...] rhythm with a left bundle branch block. [facility] Medical History Anxiety Atherosclerotic heart disease of saxman coronary artery without angina pectoris Chest pain Coronary artery disease Depression Hyperlipidemia Hypertension Myocardial infarct ST elevation FL (STEMI) (~11/29/21) Home Medications allopurinol 100 mg [...] disease Hypertension Myocardial infarction age 53 following FL. Surgical History Presence of coronary angioplasty implant [...] 78.2 H, Lymph % (Auto) 9.1 L, Wilkinson % (Auto) 9.7, Eos % (Auto) 2.2, [...] 78.2 H, Lymph % (Auto) 9.1 L, Wilkinson % (Auto) 9.7, Eos % (Auto) 2.2, [...] Cuevas MD; Dr. Valeriano Beasley MD~ Signed [facility] Work Phone: 1(925) 441-702902-11-2023 Procedure [facility] 09-03-2022 Procedure [facility]02-10-2023 History and physical note Author Dr. Ramos [facility] September 02, 2022 6:26pm Note Date/Time September 02, 2022 2:53pm [facility] Medical Records Department [address] [place] [address] H&P Exam - Hospitalist 09/02/22 1434 MR#: [id number] Acct: [id number] Name: NZAARIO HUTTON Rep #:[id number] : 1950 71 From: Jael Ramos MD PCP: Dr. Valeriano Beasley MD Status:ADM IN Location: [facility] [id number] HPI - General General Date of Admission: 09/02/22 Date of Service: 09/02/22 Chief Complaint: Lightheadedness, dizziness, bloody diarrhea. HPI Narrative The patient is a 71 y/o M w/ PMHx: EtOH abuse (6 pack beer daily x 1 yr since passing of his ) with concurrent untreated Depression, HTN, HLD, CAD s/p PCIx 3 12/2021 of note, Gout who presents [facility] on 09/02/22 with history of [...] as IV cipro and IV flagyl. From [facility] system last noted baseline labs 04/14/22 14.4, 44.2, macrocytic, 04/14/22 BUN/Cr 10/0.68. [facility] Medical History Anxiety Atherosclerotic heart disease of saxman coronary artery without angina pectoris Chest pain Coronary artery disease Depression Hyperlipidemia Hypertension Myocardial infarct ST elevation FL (STEMI) (~11/29/21) Home Medications allopurinol 100 mg [...] disease Hypertension Myocardial infarction age 53 following FL. Surgical History (Updated 09/02/22 @ 18:21 by [...] 86.3 H, Lymph % (Auto) 4.3 L, Wilkinson % (Auto) 8.6, Eos % (Auto) 0.0, [...] of note, Gout who presents [facility] on 09/02/22 with history of [...] 76 minutes. Charges/Coding Visit Charges Inpatient E&M: 92920 Init Hosp L3 Procedures Hospitalists Procedures: 50965 Advncd Care Plan 30 Min 09/02/22 1826 <Electronically signed by Jael Ramos MD> Cosigner Signature (if applicable): CC: Dr. Jael Ramos MD; Dr. Valeriano Beasley MD~ Signed [facility] Work Phone: 1(237) 429-952502-10-2023 Consult note Author Ahmetkristyn Chacon [facility] September 02, 2022 5:20pm Note Date/Time September 02, 2022 5:20pm [facility] Medical Records Department [address] [place] [address] Consultation - GI 09/02/22 1716 MR#: [id number] Acct: [id number] Name: NAZARIO HUTTON Rep #:[id number] : 1950 71 From: Ahmet Chacon DO PCP: Dr. Valeriano Beasley MD Status:ADM IN Location: [facility] KS246-9 HPI Consult Data Date of Consult: 09/02/22 [...] pain, swelling or discoloration.? He denies vomiting. [facility] Medical History (Updated 09/02/22 @ 15:42 by Jeanette Romero) Anxiety Atherosclerotic heart disease of saxman coronary artery without angina pectoris Chest pain Coronary artery disease Depression Hyperlipidemia Hypertension Myocardial infarct ST elevation FL (STEMI) (~11/29/21) Home Medications allopurinol 100 mg [...] 86.3 H, Lymph % (Auto) 4.3 L, Wilkinson % (Auto) 8.6, Eos % (Auto) 0.0, [...] of 3. Charges/Coding Visit Charges Inpatient E&M: 41859 Init Hosp L2 09/02/22 1720 <Electronically signed by Ahmet Friend DO> Cosigner Signature (if applicable): CC: Dr. Valeriano Beasley MD~ Signed [facility] Work Phone: 1(510) 639-166602-10-[address] Holguin [facility] September 02, 2022 2:40pm Note Date/Time September 02, 2022 12:26pm [facility] Medical Records Department [address] [place] [address] Emergency Department Summary 09/02/22 MR#: [id number] Acct: [id number] Name: NAZARIO HUTTON Rep #:[id number] : 1950 71 From: Marino Holguin MD [...] Prior similar symptoms: No Recent Illness/Hospitalization: No [facility] Medical History Atherosclerotic heart disease of saxman coronary artery without angina pectoris Coronary artery disease Hyperlipidemia Hypertension ST elevation FL (STEMI) (~11/29/21) Home Medications amlodipine 5 mg [...] PO DAILY 03/25/22 [History Last Taken Unknown] ckoezwpnW90-ozfb oil-omega 3-vit E 50 mg-550 mg-300 mg-30 [...] Stool was obtained for enteric pathogens. Using [employer] to compare laboratory results. Patient's had a [...] Ramos. She will admit patient to [facility], full admission. She will contact DrMarissa Chacon [...] 86.3 H Lymph % (Auto) 4.3 L Wilkinson % (Auto) 8.6 Eos % (Auto) 0.0 [...] of hypertension Disposition Disposition: Acute Care Hospital [facility] What to do if you have Problems For any increased pain, shortness of breath, bleeding, nausea or vomiting, chestpain, or any unexpected problems, contact your Primary Care Provider. Call [facility] ([phone]) or report to the closest Emergency Room. Call 911 if necessary. 09/02/22 1440 <Electronically signed by Marino Holguin MD> Cosigner Signature (if applicable): CC: Dr. Valeriano Beasley MD ~ Signed [facility] Work Phone: 1(768) 602-180309-26-2022 Instructions* Patient Instructions* Valeriano Beasley MD - 04/18/2022 3:14 PM EDT Consider getting the shingrix vaccine for the prevention of shingles from a local pharmacy Please get labs done on or after 10/07/2022 prior to your next visit. [facility] History of Present illness Narrative* Valeriano [...] He is currently doing cardiac rehab at [facility] 3 days a week. 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 Valeriano Beasley MD [facility] Miscellaneous Notes* Telephone Encounter - Zenobia Monroy - 04/12/2022 10:56 AM EDT Patient is wanting to have labs placed prior to seeing Dr. Beasley. Please advise patient via mychart when labs are placed or if he needs to wait until after the appointment. Thank you, Zenobia Monroy [facility] Hospital Discharge instructions Patient Education 01/27/2022 [...] Document Reviewed: 07/11/2014 ExitCare Patient Information 2015 BillShrink. This information is not intended to replace [...] until you are awake and alert. Take qcyn-krc-ojizszx and prescription medicines only as told by [...] 04/30/2014 Document Revised: 06/22/2018 Document Reviewed: 10/29/2016 GeoMetWatch Patient Education 2020 [employer]osy. Follow Up Care 01/17/2022 13:12:32 With:Cardiac Rehabilitation Address: [facility] [address] [place] [address]- When: Unknown Comments:Cardiac Rehab will call you for an appointment in 1-2 weeks.Information given. Please call us with any questions. [phone] With:VALERIANO BEASLEY Address: [address] [place] [address]- [facility] (1) When: Unknown With:FRANKLIN VAUGHN MD Address: [address] [facility] [address] [facility] [place] [address]- When:03/11/2022 13:30:00 [facility] 07-07-2022 Summary of episode note Discharge Instructions Thank you for allowing [facility] to assist you with your healthcare needs. The following is importantdischarge information regarding your hospital visit. Your Care Team VALERIANO BEASLEY MD What to do next Scheduled Follow-Up Appointments Appointment Type When Where Contact Information[facility] Follow Up 03/11/2022 01:30 PM EDT [facility] Follow Up Appointments Follow Up with FRANKLIN VAUGHN MD When 03/11/2022 01:30 PM EDT Where: [address] [facility] [address] [place] [address]- Follow Up with Cardiac Rehabilitation When Why: Cardiac Rehab will call you for an appointment in 1-2 weeks.Information given. Please call us with any questions. [phone] Where: [address] [place] [address]- Follow Up with VALERIANO BEASLEY When In 0 days Where: [address] [place] [address]- Business (1) The Following Activity and Diet [...] Document Reviewed: 07/11/2014 ExitCare Patient Information 2015 BillShrink. This information is not intended to replace [...] until you are awake and alert. Take cknc-cri-ppsdwtw and prescription medicines only as told by [...] 04/30/2014 Document Revised: 06/22/2018 Document Reviewed: 10/29/2016 Elsewishkicker Patient Education 2020 GeoMetWatch Inc. Additional Information VACCINATE! IT SAVES LIVES! Members of the community who have not yet received the COVID-19 vaccine and would like to receive it can visit one of [facility] vaccine clinics. There are many vaccine clinic locations within the [facility]. For locations and available times, please visit [email or web address]/. It is important to note that some COVID mobile vaccine clinics are held outdoors and may be canceled in rainy or stormy conditions. To learn more about pediatric vaccinations (ages 5-11), we invite you to visit the [facility] webpage. https://www.[facility].org/pages/0231-Ptdaz-Atnyfmmtrfs-Bhftgfbskr-Ccpvy-Ivq stions.htmlTo learn more about the COVID-19 vaccine, we invite you to visit the [facility] website for a list of frequently asked questions. [email or web address]-Ikuztiu-Xryjffdspg _[email or web address]-Questions.pdf [facility] Patient Portal Access Instructions: Stay connected with your healthcare team and access your personal medical information anytime with the [facility] Patient Portal.If you would like a full copy of your medical records, please contact the [facility] Medical Records Department, Monday through Monday between 8a.m. and 4:30p.m. Please follow the directions below to access the portal: 1.Access the email account you provided upon registration to the hospital.2.Look for an invitation email from [facility].3.Open the email and access the invitation link: Accept Invitation to [facility]4.Fill in the required shaikh to create your account. Sign into www.[employer] with your username and password that you [...] you will allow to register on the [facility] Patient Portal for access to your information. You can also access the [facility] [facility] Patient Portal on the [place]. Simply click on Health Records under [employer] and then click on the Activation Life logo. HOW TO SAFELY DISPOSE OF PRESCRIPTION [...] Call your local pharmacy or go to [email or web address] to find one close to you.3.Make use of household items: Use cat litter or old coffee grounds to dispose medications if other options arenot available. Mix your drugs with these household products, seal them in an airtight container andthrow it into the garbage. Call [facility]: [phone] to be sure your drugs can be [...] aware that I should contact my doctor. 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 * Telephone Encounter - Ganesh White MA - 12/02/2021 4:59 PM EDT Contacted [facility] requested hospital documentation. Ganesh White MA * Telephone Encounter - Nara Yates RN - 12/02/2021 4:18 PM EDT Patient returned call. He was sent by squad to [facility] from work then to [facility] on Wednesday 11/29. On arrival to [facility] he went directly to boat laborer for stent to RCA. Hewas discharged home on 12/01. He has an appointment with a administrative assistant receptionist in [place] on 12/28. He was discharged on Brilinta [...] Cardiology? Ganesh White MA' documented in [facility] encounterP[facility]05-[facility]22 Hospital Discharge instructions Patient Education 12/01/2021 12:31:14 Hypertension, Adult, Mcgq-oe-Wiwl Hypertension, Adult Hypertension is another name for [...] your doctor. This is important. Medicines Take rjep-cqn-yluwssc and prescription medicines only as told by [...] 12/26/2008 Document Revised: 03/20/2019 Document Reviewed: 03/20/2019 GeoMetWatch Patient Education 2020 [employer]y. 12/01/2021 12:31:01 Heart Attack, Ifwx-zz-Qxhp Heart Attack A heart attack occurs when [...] Follow these instructions at home: Medicines Take axoj-hpo-yykdsck and prescription medicines only as told by [...] Document Reviewed: 10/21/2019 Elsevier Patient Education 2020 [place]y. 12/01/2021 12:30:46 Atrial Fibrillation, Qqtj-wz-Ndhm Atrial Fibrillation Atrial fibrillation is a condition [...] Document Reviewed: 08/20/2013 ExitCare Patient Information [address] [facility]. This information is not intended to replace advicegiven to you by your health care provider. Make sure you discuss any questions you have with your health care provider. Follow Up Care 11/29/2021 15:20:14 With:TESSA GUZMAN MD, Thoracic Service, Vascular Service Address: [address] [place] [address] [address] [facility] [place] [address]- [phone] When:12/28/2021 15:00:00 With:CHRISTINE EDWARDS MD Address: [address] [facility] [address] [facility] [place] [address]- [phone] When:12/28/2021 11:30:00 Comments:THIS APPOINTMENT WILL BE WITH PONCHO BYRNE With:Cardiac Rehabilitation Address: [address] [place] [address]- When: Unknown Comments:Cardiac Rehab will call you for an appointment in 1-2 weeks.Information given. Please call us with any questions. [phone] With:VALERIANO BEASLEY Address: [address] [place] [address]- Business (1) When:1-2 days [facility] 05-09-2022 Evaluation + Plan noteExtracted from: [...] down the stairs to evaluate patient in Jawbone Puller for future outpatient bypass after this initial [...] of this technology. Dr. Lisa Reeves Interventional Rfid Specialist, PGY 7 Pager: [phone] Please call with any questions or concerns Attending for this patient encounter is Dr. Nicolas Future Appointments Appointment Date:12/28/2021 11:30:00 AM Scheduled Provider:CATY MACARIO Location:[facility] Appointment Type:[facility] Follow Up Appointment Date:12/28/2021 03:00:00 PM Scheduled Provider:TESSA GUZMAN MD Location:[facility] Appointment Type:[facility] 01-09-2019 History of Past illness Narrative* Problem Noted Date Resolved Date High serum parathyroid hormone (PTH) 08/01/2018 08/12/2019 Elevated PTHrP level 07/21/2018 08/12/2019 Impaired fasting glucose 09/03/2017 019 Abrasion of left ear canal 08/28/201708/12 Stool guaiac positive 01/19/2016 08/01/2018 Hyperuricemia 10/30/2014 08/12/2019 Neurodermatitis 07/12/2011 08/01/2018 documented as of this encounter (statuses as of 12/02/2021) [facility] of [facility] illness Narrative* Problem Noted Date Resolved Date High serum parathyroid hormone (PTH) 08/01/2018 08/12/2019 Elevated PTHrP level 07/21/2018 08/12/2019 Impaired fasting glucose 09/03/2017 019 Abrasion of left ear canal 08/28/201708/12 Stool guaiac positive 01/19/2016 08/01/2018 Hyperuricemia 10/30/2014 08/12/2019 Neurodermatitis 07/12/2011 08/01/2018 documented as of this encounter (statuses as of 12/31/2021) [facility] of [facility] illness Narrative* Problem Noted Date Resolved Date High serum parathyroid hormone (PTH) 08/01/2018 08/12/2019 Elevated PTHrP level 07/21/2018 08/12/2019 Impaired fasting glucose 09/03/2017 019 Abrasion of left ear canal 08/28/201708/12 Stool guaiac positive 01/19/2016 08/01/2018 Hyperuricemia 10/30/2014 08/12/2019 Neurodermatitis 07/12/2011 08/01/2018 documented as of this encounter (statuses as of 01/02/2022) [facility]01-[facility]2019 History of Past illness Narrative* Problem Noted Date Resolved Date High serum parathyroid hormone (PTH) 08/01/2018 08/12/2019 Elevated PTHrP level 07/21/2018 08/12/2019 Impaired fasting glucose 09/03/2017 019 Abrasion of left ear canal 08/28/201708/12 Stool guaiac positive 01/19/2016 08/01/2018 Hyperuricemia 10/30/2014 08/12/2019 Neurodermatitis 07/12/2011 08/01/2018 documented as of this encounter (statuses as of 04/12/2022) [facility] History of Past illness Narrative* Problem Noted Date Resolved Date High serum parathyroid hormone (PTH) 08/01/2018 08/12/2019 Elevated PTHrP level 07/21/2018 08/12/2019 Impaired fasting glucose 09/03/2017 019 Abrasion of left ear canal 08/28/201708/12 Stool guaiac positive 01/19/2016 08/01/2018 Hyperuricemia 10/30/2014 08/12/2019 Neurodermatitis 07/12/2011 08/01/2018 documented as of this encounter (statuses as of 04/19/2022) [facility] History of Past illness Narrative* Problem Noted Date Resolved Date High serum parathyroid hormone (PTH) 08/01/2018 08/12/2019 Elevated PTHrP level 07/21/2018 08/12/2019 Impaired fasting glucose 09/03/2017 019 Abrasion of left ear canal 08/28/201708/12 Stool guaiac positive 01/19/2016 08/01/2018 Hyperuricemia 10/30/2014 08/12/2019 Neurodermatitis 07/12/2011 08/01/2018 documented as of this encounter (statuses as of 09/06/2022) [facility] History of Past illness Narrative* Problem Noted Date Resolved Date High serum parathyroid hormone (PTH) 08/01/2018 08/12/2019 Elevated PTHrP level 07/21/2018 08/12/2019 Impaired fasting glucose 09/03/2017 019 Abrasion of left ear canal 08/28/201708/12 Stool guaiac positive 01/19/2016 08/01/2018 Hyperuricemia 10/30/2014 08/12/2019 Neurodermatitis 07/12/2011 08/01/2018 documented as of this encounter (statuses as of 09/06/2022) [facility] History of Past illness Narrative* Problem Noted Date Resolved Date High serum parathyroid hormone (PTH) 08/01/2018 08/12/2019 Elevated PTHrP level 07/21/2018 08/12/2019 Impaired fasting glucose 09/03/2017 019 Abrasion of left ear canal 08/28/201708/12 Stool guaiac positive 01/19/2016 08/01/2018 Hyperuricemia 10/30/2014 08/12/2019 Neurodermatitis 07/12/2011 08/01/2018 documented as of this encounter (statuses as of 09/12/2022) [facility] History of Past illness Narrative* Problem Noted Date Resolved Date High serum parathyroid hormone (PTH) 08/01/2018 08/12/2019 Elevated PTHrP level 07/21/2018 08/12/2019 Impaired fasting glucose 09/03/2017 019 Abrasion of left ear canal 08/28/201708/12 Stool guaiac positive 01/19/2016 08/01/2018 Hyperuricemia 10/30/2014 08/12/2019 Neurodermatitis 07/12/2011 08/01/2018 documented as of this encounter (statuses as of 09/16/2022) [facility] History of Past illness Narrative* Problem Noted Date Resolved Date High serum parathyroid hormone (PTH) 08/01/2018 08/12/2019 Elevated PTHrP level 07/21/2018 08/12/2019 Impaired fasting glucose 09/03/2017 019 Abrasion of left ear canal 08/28/201708/12 Stool guaiac positive 01/19/2016 08/01/2018 Hyperuricemia 10/30/2014 08/12/2019 Neurodermatitis 07/12/2011 08/01/2018 documented as of this encounter (statuses as of 09/16/2022) [facility] History of Past illness Narrative* Problem Noted Date Resolved Date High serum parathyroid hormone (PTH) 08/01/2018 08/12/2019 Elevated PTHrP level 07/21/2018 08/12/2019 Impaired fasting glucose 09/03/2017 019 Abrasion of left ear canal 08/28/201708/12 Stool guaiac positive 01/19/2016 08/01/2018 Hyperuricemia 10/30/2014 08/12/2019 Neurodermatitis 07/12/2011 08/01/2018 documented as of this encounter (statuses as of 10/12/2022) [facility] History of Past illness Narrative* Problem Noted Date Resolved Date High serum parathyroid hormone (PTH) 08/01/2018 08/12/2019 Elevated PTHrP level 07/21/2018 08/12/2019 Impaired fasting glucose 09/03/2017 019 Abrasion of left ear canal 08/28/201708/12 Stool guaiac positive 01/19/2016 08/01/2018 Hyperuricemia 10/30/2014 08/12/2019 Neurodermatitis 07/12/2011 08/01/2018 documented as of this encounter (statuses as of 10/13/2022) [facility] History of Past illness Narrative* Problem Noted Date Resolved Date High serum parathyroid hormone (PTH) 08/01/2018 08/12/2019 Elevated PTHrP level 07/21/2018 08/12/2019 Impaired fasting glucose 09/03/2017 019 Abrasion of left ear canal 08/28/201708/12 Stool guaiac positive 01/19/2016 08/01/2018 Hyperuricemia 10/30/2014 08/12/2019 Neurodermatitis 07/12/2011 08/01/2018 documented as of this encounter (statuses as of 10/21/2022) [facility] History of Past illness Narrative* Problem Noted Date Resolved Date High serum parathyroid hormone (PTH) 08/01/2018 08/12/2019 Elevated PTHrP level 07/21/2018 08/12/2019 Impaired fasting glucose 09/03/2017 019 Abrasion of left ear canal 08/28/201708/12 Stool guaiac positive 01/19/2016 08/01/2018 Hyperuricemia 10/30/2014 08/12/2019 Neurodermatitis 07/12/2011 08/01/2018 documented as of this encounter (statuses as of 11/11/2022) [facility] History of Past illness Narrative* Problem Noted Date Resolved Date High serum parathyroid hormone (PTH) 08/01/2018 08/12/2019 Elevated PTHrP level 07/21/2018 08/12/2019 Impaired fasting glucose 09/03/2017 019 Abrasion of left ear canal 08/28/201708/12 Stool guaiac positive 01/19/2016 08/01/2018 Hyperuricemia 10/30/2014 08/12/2019 Neurodermatitis 07/12/2011 08/01/2018 documented as of this encounter (statuses as of 11/15/2022) [facility] History of Past illness Narrative* Problem Noted Date Resolved Date High serum parathyroid hormone (PTH) 08/01/2018 08/12/2019 Elevated PTHrP level 07/21/2018 08/12/2019 Impaired fasting glucose 09/03/2017 019 Abrasion of left ear canal 08/28/201708/12 Stool guaiac positive 01/19/2016 08/01/2018 Hyperuricemia 10/30/2014 08/12/2019 Neurodermatitis 07/12/2011 08/01/2018 documented as of this encounter (statuses as of 12/20/2022) [facility] History of Past illness Narrative* Problem Noted Date Resolved Date High serum parathyroid hormone (PTH) 08/01/2018 08/12/2019 Elevated PTHrP level 07/21/2018 08/12/2019 Impaired fasting glucose 09/03/2017 019 Abrasion of left ear canal 08/28/201708/12 Stool guaiac positive 01/19/2016 08/01/2018 Hyperuricemia 10/30/2014 08/12/2019 Neurodermatitis 07/12/2011 08/01/2018 documented as of this encounter (statuses as of 01/06/2023) [facility] No data available for this section [facility] Evaluation + Plan note Future Appointments Appointment Date:03/11/2022 01:30:00 PM Scheduled Provider: Location:[facility] Appointment Type:[facility] Hospital Follow Up [facility] Evaluation note* Diagnosis Myocardial infarction involving left anterior descending (LAD) coronary artery, unspecified FL type (HCC)- Primary [facility] [place] noteNo assessment information availableWP[facility] Work Phone: Evaluation note* Diagnosis Coronary artery disease due to lipid rich plaque- Primary Essential hypertension, benign Mixed hyperlipidemia Gout without tophus Low vitamin D level Elevated PSA Elevated prostate specific antigen (PSA) Medication management Encounter for long-term (current) use of other medications [facility] Diagnosis Medicare annual wellness visit, [...] Other specified counseling [facility] Diagnosis NSTEMI (non-ST elevated myocardial infarction) (HCC) Acute myocardial infarction, subendocardial infarction, episode of care unspecified Diverticulosis Diverticulosis of colon (without mention of hemorrhage) documented [facility] [place] [facility]* Diagnosis Onset Date Resolution Status Acute blood loss anemia acut e BC (acute kidney injury) ac [place] Bloody diarrhea acute Chest pain acute History of hypertension acut e Leukocytosis acute NSTEMI (non-ST elevated myocardial infarction) acute [facility] Work Phone: Evaluation note* Diagnosis Lower GI bleed- Primary Hemorrhage of gastrointestinal tract, unspecified Situational depression Adjustment disorder with depressed mood 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 Alcohol abuse Alcohol abuse, unspecified H/O non-ST elevation myocardial infarction (NSTEMI) Old myocardial infarction Mixed hyperlipidemia [facility] [place] [facility]* Diagnosis Essential hypertension, benign- Primary Mixed hyperlipidemia NSTEMI (non-ST elevated myocardial infarction) ([facility]) Acute myocardial infarction, subendocardial infarction, episode [...] Gout without tophus [facility] [place] [facility]* Diagnosis Onset Date Resolution Status BC (acute kidney injury) ac [place] Leukocytosis acute NSTEMI (non-ST elevated myocardial infarction) acute Atherosclerotic heart diseas e of saxman coronary artery without angina pectoris acute Essential hypertension acute Hyperlipidemia acute [facility] Work Phone: Evaluation note* Diagnosis Medicare [...] ear wax, right [facility] [place] [facility]* Diagnosis Essential hypertension, benign- Primary Low serum vitamin B12 Anxiety Anxiety state, unspecified documented in this encounter [facility] note* Diagnosis Other specified disorders of kidney and ureter- Primary Essential hypertension, benign Kidney lesion Unspecified disorder of kidney and ureter [facility] [place] [facility]* Diagnosis Other specified disorders of kidney and ureter Kidney lesion Unspecified disorder of kidney and ureter [facility] Onset Date Resolution Status Neuropathy acute Other intervertebral disc degeneration, lumbar region acute Atherosclerotic heart diseas e of saxman coronary artery without angina pectoris acute Dizziness acute Essential hypertension acute Hyperlipidemia acute SOB (shortness of breath) [facility] Work Phone: Evaluation note* Diagnosis Coronary artery disease due to lipid rich plaque- Primary Essential hypertension, benign Mixed hyperlipidemia Kidney lesion Unspecified disorder of kidney and ureter Low serum vitamin B12 Gout without tophus Alcohol abuse Alcohol abuse, unspecified Elevated PSA Elevated prostate specific antigen (PSA) [facility] Diagnosis Renal stones- Primary Calculus of kidney Hydronephrosis, unspecified hydronephrosis type [facility] Diagnosis Balance problems- Primary Other symptoms involving nervous and musculoskeletal systems Abnormality of gait Numbness Disturbance of skin sensation Neuropathy Mononeuritis of unspecified site Other symptoms and signs involving the nervous system History of CAD (coronary artery disease) History of coronary artery stent placement Postsurgical percutaneous transluminal coronary angioplasty status [facility] Diagnosis Other symptoms and signs involving the nervous system [facility] Diagnosis Other symptoms and signs involving the nervous system [facility] Diagnosis Occlusion and stenosis of unspecified carotid artery- Primary Nephropathy screen Screening for nephropathy Stenosis of carotid artery, unspecified laterality [facility] Diagnosis Occlusion and stenosis of unspecified carotid artery [facility] Diagnosis Tongue swelling- Primary Swelling, mass, or lump in head and neck [facility]* Diagnosis Essential hypertension, benign- Primary [facility] Diagnosis Medicare annual wellness visit, subsequent- Primary Routine general medical examination at a health care facility Encounter for immunization Need for other specified prophylactic vaccination against single bacterial disease Essential hypertension, benign Advance directive discussed with patient Other specified counseling Living will in place Financial Accounting Analyst's nodules Localized superficial swelling, mass, or lump [...] specific antigen (PSA) [facility] [place] [facility]* Diagnosis Liver fibrosis- Primary Cirrhosis of liver without mention of alcohol [facility] [place] [facility]* Diagnosis Essential hypertension, benign- Primary [facility] [place] [facility]* Diagnosis Alcoholic cirrhosis, unspecified whether ascites present (HCC)- Primary [facility] [place] [facility]* Diagnosis Angioedema, subsequent encounter- Primary [facility] [place] [facility]* Diagnosis Angioedema, subsequent encounter documented [facility] [place] [facility]* Diagnosis Neuropathy, idiopathic- Primary Mononeuritis of unspecified site Abnormal SPEP Other nonspecific findings on examination of blood Positive GALLO (antinuclear antibody) Other and unspecified nonspecific immunological findings Abnormality of gait Numbness Disturbance of skin sensation [facility] [place] [facility]* Diagnosis Abnormal SPEP- Primary Other nonspecific findings on examination of blood [facility] [place] [facility]* Diagnosis Positive GALLO (antinuclear antibody)- Primary Other and unspecified nonspecific immunological findings Ds DNA antibody positive Other and unspecified nonspecific immunological findings Neuropathy Mononeuritis of unspecified site [facility] [place] [facility]* Diagnosis Neuropathy - (NOS)- Primary [facility] [place] [facility]* Diagnosis Monoclonal gammopathy- Primary Monoclonal paraproteinemia Hypercalcemia [facility] [place] [facility]* Diagnosis Monoclonal gammopathy- Primary Monoclonal paraproteinemia Neuropathy - (NOS) documented [facility] [place] [facility]* Diagnosis Monoclonal gammopathy Monoclonal paraproteinemia documented [facility] [place] [facility]* Diagnosis Essential hypertension, benign- Primary Alcoholic [...] unspecified cardiovascular conditions [facility] Diagnosis Screening for abdominal aortic aneurysm Screening for other and unspecified cardiovascular conditions [facility] Diagnosis Peripheral polyneuropathy- Primary Unspecified hereditary and idiopathic peripheral neuropathy Low vitamin B12 level Other B-complex deficiencies Drinks beer [facility] Diagnosis Hospital discharge follow-up- Primary Other follow-up examination Essential hypertension, benign [facility] Author Flakita Florentino [facility] Note Date/Time December 27, 2024 2:52p m [facility] Medical Records Department [address] [place] [address] H&P Exam - Hospitalist 12/27/24 1411 MR#: [id number] Acct: [id number] Name: NAZARIO HUTTON Rep #:[id number] : 1950 74 From: Flakita Florentino DO PCP: Dr. Valeriano Beasley MD Status:REG ER Location: ED HPI - General General Date of Admission: 12/27/24 Date of Service: 12/27/24 Chief Complaint: Tongue and lip swelling HPI Narrative NAZARIO HUTTON, is a 74 M who presented to the emergency department at [facility] on 12/27/2024 with tongue and lip [...] maintained on Solu-Medrol, H2 and H1 blockers. [facility] Medical History High serum parathyroid hormone (PTH) Heart murmur Elevated alkaline phosphatase level Elevated PSA Diverticulosis AVM (arteriovenous malformation) of colon Vitamin D deficiency Gout Alcohol abuse Essential hypertension Chest pain Anxiety Depression Myocardial infarct Chest pain Acute blood loss anemia Bloody diarrhea Coronary artery disease Atherosclerotic heart disease of saxman coronary artery without angina pectoris ST elevation FL (STEMI) (~11/29/21) Hyperlipidemia Hypertension Home Medications ?Medication [...] disease Hypertension Myocardial infarction age 53 following FL. Surgical History H/O colonoscopy S/P cataract extraction [...] (Auto) 67.1, Lymph % (Auto) 9.8 L, Wilkinson % (Auto) 11.2 H, Eos % (Auto) [...] Patient should follow-up as an outpatient with fiber optic splicer if has not already done so Chronic [...] Full code Charges/Coding Visit Charges Inpatient E&M: 15272 Init Hosp L2 12/27/24 1452 <Electronically signed by Flakita Florentino DO> Cosigner Signature (if applicable): CC: Dr. Valeriano Beasley MD; Dr. Flakita Florentino DO~ Signed [facility] Work Phone: Hospital Discharge instructions No data available for this section [facility] Note* FRANKLIN VAUGHN MD: SIGN, VERIFY Event Display: Percut Transluminal Coronary Angioplasty Authored Date: [facility] Progress note No data available for this section [facility] Progress note Author Dr. Crespo [facility] September 10, 2022 1:29pm Note Date/Time September 10, 2022 1:29pm [facility] Medical Records Department [address] [place] [address] Progress Note - Hospitalist 09/10/22 1328 MR#: [id number] Acct: [id number] Name: NAZARIO HUTTON Rep #:[id number] : 1950 71 From: Obdulio goyal MD PCP: Dr. Valeriano Beasley MD Status:ADM IN Location: [place] [address] Subjective Subjective This progress note is for [...] mild segmental systolic dysfunction. Records requested from [facility] * Appreciate cardiology's assistance, will restart Plavix by itself in about a week #Acute alcohol withdrawal * patient has a history of heavy alcohol use, and drinks 4-6 drinks daily. * alcohol withdrawal protocol with ativan. * on folic acid, thiamine and multivitamin. DVT: SCDs Charges/Coding Visit Charges Inpatient E&M: 21962 Subs Hosp L2 09/10/22 1329 <Electronically signed by Obdulio Crespo MD> Cosigner Signature (if applicable): CC: ~ Signed [facility] Work Phone: Rekgfy for referral (narrative)No reason for referral information availableWPike Community Hospital Work Phone: Rekssq for visit Narrative* Diagnostic Procedure Only (Routine) - Closed Specialty Diagnoses / Procedures Referred By Lisandroac t Referred To Contact XR IMAGING Diagnoses Monoclonal gammopathy Procedures XR BONE SURVEY ROUTINE RADIOLOGIC EXAMINATION OSSEOUS SURVEY COMPL Stephanie Roy, [address] [place] [address] Phone: tel: fax: XR IMAGING [place] [address] Referral ID Status Reason Start Date Expiration Date V isits Requested Visits Authorized [id number] Closed Auto-Generate d Referral 10/23/2024 11/22/2025 1 1 [facility] Reason for Referral Specialty Diagnoses / Procedures Referred By Contac t Referred To Contact Rheumatology Diagnoses Positive GALLO (antinuclear antibody) Procedures CONSULT TO RHEUM/IMMUN DISEASE OFFICE/OUTPATIENT [facility] 60 MINUTES Patria Khanna Jr., MD [address] [place] [address] Referral ID Status Reason Start Date Expiration Date Visits Requested Visits Authorized [id number] Authorized PCP Requested Referral 08/30/2024 08/30/2025 1 1 Specialty Diagnoses / Procedures Referred By Contac t Referred To Contact Allergy Diagnoses Angioedema, subsequent encounter Procedures CONSULT TO ALLERGY/IMMUNOLOGY OFFICE/OUTPATIENT [facility] 60 MINUTES Valeriano Beasley MD [address] [place] [address] Referral ID Status Reason Start Date Expiration Date Visits Requested Visits Authorized [id number] Authorized PCP Requested Referral 07/31/2024 07/31/2025 1 1 Specialty Diagnoses / Procedures Referred By Contac t Referred To Contact Gastroenterology Diagnoses Liver fibrosis Procedures CONSULT TO GASTROENTEROLOGY OFFICE/OUTPATIENT [facility] 60 MINUTES Suzanna Dawson PA-C [address] [place] [address] Referral ID Status Reason Start Date Expiration Date Visits Requested Visits Authorized [id number] Authorized PCP Requested Referral 05/15/2025 1 1 Specialty Diagnoses / Procedures Referred By Contac t Referred To Contact Vascular Surgery Diagnoses Stenosis of carotid artery, unspecified laterality Procedures CONSULT TO VASCULAR SURGERY OFFICE/OUTPATIENT [facility] 60 MINUTES Patria Khanna Jr., MD [address] [place] [address] [address] [place] [address] Referral ID Status Reason Start Date Expiration Date Visits Requested Visits Authorized [id number] Authorized PCP Requested Referral 02/07/2024 02/06/2025 1 1 Specialty Diagnoses / Procedures Referred By Contac t Referred To Contact CT IMAGING Diagnoses Occlusion and stenosis of unspecified carotid artery Procedures CTA NECK W IVCON CT ANGIOGRAPHY NECK W/CONTRAST/NONCONTRAST Patria Khanna Jr., MD [address] [facility] [address] [place] [address] [place] [address] Referral ID Status Reason Start Date Expiration Date Visits Requested Visits Authorized [id number] New Request Auto-Generat ed Referral 02/07/2024 03/08/2025 1 1 Specialty Diagnoses / Procedures Referred By Contac t Referred To Contact CT IMAGING Diagnoses Occlusion and stenosis of unspecified carotid artery Procedures CTA HEAD W IVCON CT ANGIOGRAPHY HEAD W/CONTRAST/NONCONTRAST Patria Khanna Jr., MD [address] [facility] [address] [place] [address] [place] [address] Referral ID Status Reason Start Date Expiration Date Visits Requested Visits Authorized [id number] New Request Auto-Generat ed Referral 02/07/2024 03/08/2025 1 1 Specialty Diagnoses / Procedures Referred By Contac t Referred To Contact CT IMAGING Diagnoses Stenosis of carotid artery, unspecified laterality Procedures CTA NECK W IVCON CT ANGIOGRAPHY NECK W/CONTRAST/NONCONTRAST Patria Khanna Jr., MD [address] [facility] [address] [place] [address] [place] [address] Referral ID Status Reason Start Date Expiration Date Visits Requested Visits Authorized [id number] New Request Auto-Generat ed Referral 02/07/2024 03/08/2025 1 1 Specialty Diagnoses / Procedures Referred By Contac t Referred To Contact CT IMAGING Diagnoses Stenosis of carotid artery, unspecified laterality Procedures CTA HEAD W IVCON CT ANGIOGRAPHY HEAD W/CONTRAST/NONCONTRAST Patria Khanna Jr., MD [address] [facility] [address] [place] [address] [place] [address] Referral ID Status Reason Start Date Expiration Date Visits Requested Visits Authorized [id number] New Request Auto-Generat ed Referral 02/07/2024 03/08/2025 1 1 Specialty Diagnoses / Procedures Referred By Contac t Referred To Contact MR IMAGING Diagnoses Other symptoms and signs involving the nervous system Procedures MRA CAROTID WO IVCON MRA, NECK; W/O CONTRAST Patria Khanna Jr., MD [address] [facility] [address] [place] [address] [place] [address] Referral ID Status Reason Start Date Expiration Date Visits Requested Visits Authorized [id number] Authorized Auto-Generat ed Referral 01/01/2024 01/30/2025 1 1 Specialty Diagnoses / Procedures Referred By Contac t Referred To Contact MR IMAGING Diagnoses Other symptoms and signs involving the nervous system Procedures MRA BRAIN WO IVCON MRA, HEAD W/O CONTRAST Patria Khanna Jr., MD [address] [facility] [address] [place] [address] [place] [address] Referral ID Status Reason Start Date Expiration Date Visits Requested Visits Authorized [id number] Authorized Auto-Generat ed Referral 01/01/2024 01/30/2025 1 1 Specialty Diagnoses / Procedures Referred By Contac t Referred To Contact MR IMAGING Diagnoses Other symptoms and signs involving the nervous system Procedures MRI BRAIN WO IVCON MRI BRAIN BRAIN STEM W/O CONTRAST MATERIAL Patria Khanna Jr., MD [address] [facility] [address] [place] [address] [place] [address] Referral ID Status Reason Start Date Expiration Date Visits Requested Visits Authorized [id number] Authorized Auto-Generat ed Referral 01/01/2024 01/30/2025 1 1 Specialty Diagnoses / Procedures Referred By Contac t Referred To Contact Urology Diagnoses Renal stones Hydronephrosis, unspecified hydronephrosis type Procedures CONSULT TO UROLOGY OFFICE/OUTPATIENT [facility] 60 MINUTES Valeriano Beasley MD [facility] [place] [address] Referral ID Status Reason Start Date Expiration Date Visits Requested Visits Authorized [id number] Authorized PCP Requested Referral 10/17/2023 08/29/2024 1 1 Specialty Diagnoses / Procedures Referred By Contac t Referred To Contact CT IMAGING Diagnoses Other specified disorders of kidney and ureter Kidney lesion Procedures CT KIDNEY WO/W IVCON CT ABDOMEN W & W/O CONTRAST Valeriano Beasley MD [facility] [place] [address] [place] [address] Referral ID Status Reason Start Date Expiration Date Visits Requested Visits Authorized [id number] Authorized Auto-Generat ed Referral 08/21/2023 09/19/2024 1 1 Specialty Diagnoses / Procedures Referred By Contac t Referred To Contact Neurology Diagnoses Balance problems Atrophy of muscle of right shoulder Atrophy of muscle of other site Procedures CONSULT TO NEUROLOGY OFFICE/OUTPATIENT [facility] 60-74 MINUTES Valeriano Beasley MD [address] [place] [address] Referral ID Status Reason Start Date Expiration Date Visits Requested Visits Authorized [id number] Pending Review PCP Requested Referral 04/20/2023 04/19/2024 1 1 Specialty Diagnoses / Procedures Referred By Contac t Referred To Contact Cardiology Diagnoses Myocardial infarction involving left anterior descending (LAD) coronary artery, unspecified [place] type (HCC) Procedures CONSULT TO CARDIOLOGY OFFICE/OUTPATIENT [facility] 60-74 MINUTES Tessa Donato, [address] [address] [place] [address] Referral ID Status Reason Start Date Expiration Date Visits Requested Visits Authorized [id number] Pending Review PCP Requested Referral 01/01/2022 01/01/2023 [...] DIARRHEAL ILLNESS Amb Documentation [facility] Reason for Visit BC (acute kidney in jury) Leukocytosis NSTEMI (non-ST elevated myocardial infarction) Atherosclerotic heart disease of saxman coronary artery without angina pectoris Essential hypertension Hyperlipidemia Chief Complaint Anesthesia of skin Anesthesia of skin Chief Complaint Anesthesia of skin Anesthesia of skin LUMBAR SPINE Xray room 3 9 M FU E ORDERS Reason for Visit Neuropathy Other intervertebral disc degeneration, 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 Dizziness Essential hypertension Hyperlipidemia SOB (shortness of breath) Chief Complaint LUMBAR SPINE Xray room 3 9 M FU E ORDERS Dizziness and giddiness Amb Documentation Reason for Visit Neuropathy Other intervertebral disc degeneration, 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 Dizziness Essential [...] 2024 1:55pm Atherosclerotic heart diseas e of saxman coronary artery without angina pectoris November 05, [...] 2024 1:55pm Atherosclerotic heart diseas e of sax[place] coronary artery without angina pectoris November 05, [...] Admit Date Atherosclerotic heart diseas e of saxman coronary artery without angina pectoris November 05, [...] Yes March 25, 022 2:44pm Power of Dope Heater Yes March 25, 2022 2:44pm Advance Directives on File No Septe [email or web address] 2:44pm Advance Directive Response Recorded Date/ Time Living Will Yes March 25 1:44pm Power of Dope Heater Yes March 25, 2022 1:44pm Advance Directive Response Recorded Date/ Time Name of Medical Power of Dope Heater son --Ye September 02, 2022 3:31pm Living Will Yes September 02 023 3:31pm Power of Dope Heater Yes September 02, 2022 3:31pm Advance Directive Response Recorded Date/ Time Name of Medical Power of Dope Heater son --Ye September 02, 2022 4:31pm Living Will Yes 2022 1:35pm Power of Dope Heater Yes October 19 1:35pm Advance Directive Response Recorded Date/ Time Living Will Yes 2022 12:35pm Power of Dope Heater Yes October 19 12:35pm Advance Directive Response Recorded Date/ Time Living Will Yes August 23 3:18pm Power of Dope Heater Yes August 23, 2023 3:18pm Advance Directive Response Recorded Date/ Time Living Will Yes August 23 4:18pm Power of Dope Heater Yes August 23, 2023 4:18pm Advance Directive Response Recorded Date/ Time Living Will Yes July 18 024 11:19am Power of Dope Heater Yes July 18, 2024 11:19am Name of Medical Power of Dope Heater jae matiascesar jonaradha July 18, 2024 11:19am Advance Directive Response Recorded Date/ Time Living Will Yes July 18 11:19am Do you have a Healthcare Pow er of Dope Heater? Yes July 18, 2024 11:19am Name of Medical Power of Dope Heater emeka marvin July 18, 2024 11:19am Advance Directive Response Recorded Date/ Time Do you have a Healthcare Power of Dope Heater? No December 27, 2024 1:13pm Advance Directive Response Recorded Date/ Time Do you have a Healthcare Power of Dope Heater? No December 27, 2024 1:13pm Do you have a Healthcare Power of Dope Heater? Yes January 23, 2025 9:26pm Family History Relationship Condition Age at Onset Recorded Date/T lacy mother Chronic obstructive pulmonary disease Unk nown Malignant neoplasm of lung Unknown father Cardiac disease Unknown Hypertension Unknown Myocardial infarction Unknown Summary Purpose Additional Source Comments Care Team (unrecognized sect ion and content) Stem Roller Relationship Specialty Start Date End Date Valeriano Beasley MD [address] [place] [address] PCP - General Family Practice 03/15/21 Stem Roller Relationship Specialty Start Date End Date Valeriano Beasley MD [facility] [place] [address] PCP - General Family Practice 03/15/21 Stem Roller Relationship Specialty Start Date End Date Valeriano Beasley MD [facility] [place] [address] PCP - General Family Practice 03/15/21 Stem Roller Relationship Specialty Start Date End Date Valeriano Beasley MD [facility] [place] [address] PCP - General Family Medicine 03/15/21 Stem Roller Relationship Specialty Start Date End Date Valeriano Beasley MD [facility] [place] [address] PCP - General Family Medicine 03/15/21 Stem Roller Relationship Specialty Start Date End Date Valeriano Beasley MD [facility] [place] [address] PCP - General Family Medicine 03/15/21 Stem Roller Relationship Specialty Start Date End Date Valeriano Beasley MD [address] [place] [address] PCP - General Family Medicine 03/15/21 Team [...] Dr. Obdulio Crespo MD Attending Provider Active Stem Roller Relationship Specialty Start Date End Date Valeriano Beasley MD [address] [place] [address] PCP - General Family Medicine 03/15/21 Stem Roller Relationship Specialty Start Date End Date Valeriano Beasley MD [address] [place] [address] PCP - General Family Medicine 03/15/21 Stem Roller Relationship Specialty Start Date End Date Valeriano Beasley MD [address] [place] [address] PCP - General Family Medicine 03/15/21 Stem Roller Relationship Specialty Start Date End Date Valeriano Beasley MD [address] [place] [address] PCP - General Family Medicine 03/15/21 Stem Roller Relationship Specialty Start Date End Date Valeriano Beasley MD [address] [place] [address] PCP - General Family Medicine 03/15/21 Stem Roller Relationship Specialty Start Date End Date Valeriano Beasley MD [address] [place] [address] PCP - General Family Medicine 03/15/21 Stem Roller Relationship Specialty Start Date End Date Valeriano Beasley MD [address] [place] [address] PCP - General Family Medicine 03/15/21 Team [...] Provider, Referri ng Provider Active Xochilt Casanova CLINICAL DIETICIAN, CLINICAL DIETICIAN-C Attending Provider Active Team Status: Active Member Role Status Dates Dr. Valeriano Beasley MD Primary Care Provider Active Liz Navarro Attending Provider Active Team Status: Inactive Member Role Status Dates Dr. Valeriano Beasley MD Primary Care Provider Active Xochilt Casanova CLINICAL DIETICIAN, CLINICAL DIETICIAN-C Attending Provider, Referrin g Provider Active Stem Roller Relationship Specialty Start Date End Date Valeriano Beasley MD [address] [place] [address] PCP - General Family Medicine 03/15/21 Stem Roller Relationship Specialty Start Date End Date Valeriano Beasley MD [address] [place] [address] PCP - General Family Medicine 03/15/21 Team Status: Active Member Role Status Dates Dr. Valeriano Beasley MD Primary Care Pro vider, Referring Provider, Other Provider Active Dr. Jung Braun MD Attending Provider Active Team Status: Inactive Member Role Status Dates Dr. Valeriano Beasley MD Primary Care Pro vider, Attending Provider, Referring Provider Active Stem Roller Relationship Specialty Start Date End Date Valeriano Beasley MD [address] [place] [address] PCP - General Family Medicine 03/15/21 Stem Roller Relationship Specialty Start Date End Date Valeriano Beasley MD [address] [place] [address] PCP - General Family Medicine 03/15/21 Stem Roller Relationship Specialty Start Date End Date Valeriano Beasley MD [address] [place] [address] PCP - General Family Medicine 03/15/21 Stem Roller Relationship Specialty Start Date End Date Valeriano Beasley MD [address] [place] [address] PCP - General Family Medicine 03/15/21 Stem Roller Relationship Specialty Start Date End Date Valeriano Beasley MD [address] [place], [place] 9779[address] PCP - General Family Medicine 03/15/21 Team Status: Inactive Member Role Status Dates Dr. Valeriano Beasley MD Primary Care Provider, Referri ng Provider Active Estefany Thrasher CLINICAL DIETICIAN, CLINICAL DIETICIAN-C Attending Provider Active Team Status: Inactive Member [...] MD Primary Care Provider Active Estefany Thrasher CLINICAL DIETICIAN, CLINICAL DIETICIAN-C Attending Provider, Referring P andrzej Active Stem Roller Relationship Specialty Start Date End Date Valeriano Beasley MD [address] [place] [address] PCP - General Family Medicine 03/15/21 Team Status: Active Member Role Status Dates Dr. Valeriano Beasley MD Primary Care Provider Active Dr. Alexi Jaime MD Attending Provider Active Team Status: Active Member Role Status Dates Dr. Valeriano Beasley MD Primary Care Provider Active Estefany Thrasher CLINICAL DIETICIAN, CLINICAL DIETICIAN-C Attending Provider Active Stem Roller Relationship Specialty Start Date End Date Valeriano Beasley MD [address] [place] [address] PCP - General Family Medicine 03/15/21 Stem Roller Relationship Specialty Start Date End Date Valeriano Beasley MD [address] [place], [place] 201881 PCP - General Family Medicine 03/15/21 Stem Roller Relationship Specialty Start Date End Date Valeriano Beasley MD [address] [place] [address] PCP - General Family Medicine 03/15/21 Stem Roller Relationship Specialty Start Date End Date Valeriano Beasley MD [address] [place] [address] PCP - General Family Medicine 03/15/21 Stem Roller Relationship Specialty Start Date End Date Valeriano Beasley MD [address] [place] [address] PCP - General Family Medicine 03/15/21 Stem Roller Relationship Specialty Start Date End Date Valeriano Beasley MD [address] [place] [address] PCP - General Family Medicine 03/15/21 Stem Roller Relationship Specialty Start Date End Date Valeriano Beasley MD [address] [place] [address] PCP - General Family Medicine 03/15/21 Stem Roller Relationship Specialty Start Date End Date Valeriano Beasley MD [address] [place] [address] PCP - General Family Medicine 03/15/21 Stem Roller Relationship Specialty Start Date End Date Valeriano Beasley MD [address] [place] [address] PCP - General Family Medicine 03/15/21 Stem Roller Relationship Specialty Start Date End Date Valeriano Beasley MD [address] [place] [address] PCP - General Family Medicine 03/15/21 Stem Roller Relationship Specialty Start Date End Date Valeriano Beasley MD [address] [place] [address] PCP - General Family Medicine 03/15/21 Stem Roller Relationship Specialty Start Date End Date Valeriano Beasley MD [address] [place] [address] PCP - General Family Medicine 03/15/21 Stem Roller Relationship Specialty Start Date End Date Valeriano Beasley MD [address] [place] [address] PCP - General Family Medicine 03/15/21 Stem Roller Relationship Specialty Start Date End Date Valeriano Beasley MD [address] [place] [address] PCP - General Family Medicine 03/15/21 Stem Roller Relationship Specialty [place] [address] [place] [address] PCP - General Family Medicine 03/15/21 Stem Roller Relationship Specialty Start Date End Date Valeriano Beasley MD [address] [place] [address] PCP - General Family Medicine 03/15/21 Ni Sauceda APRN.CNP [address] [place] [address] Dispatcher Maintenance Family Medicine 06/29/24 Suzanna Dawson PA-C [address] [place] [address] Dispatcher Maintenance Family Medicine 06/29/24 Stem Roller Relationship Specialty Start Date End Date Valeriano Beasley MD [address] [place] [address] PCP - General Family Medicine 03/15/21 Ni Sauceda APRN.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 MANAGER [address] [place] [address] Dispatcher Maintenance Family Medicine 06/29/24 Suzanna Dawson PA-C [address] [place] [address] Dispatcher Maintenance Family Medicine 06/29/24 Stem Roller Relationship Specialty Start Date End Date Valeriano Beasley MD [address] [place] [address] PCP - General Family Medicine 03/15/21 Ni Sauceda APRN.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 MANAGER [address] [place] [address] Dispatcher Maintenance Family Medicine 06/29/24 Suzanna Dawson PA-C [address] [place] [address] Dispatcher Maintenance Family Medicine 06/29/24 Stem Roller Relationship Specialty Start Date End Date Valeriano Beasley MD [address] [place] [address] PCP - General Family Medicine 03/15/21 Ni Sauceda APRN.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 MANAGER [address] [place] [address] Dispatcher Maintenance Family Medicine 06/29/24 Suzanna Dawson PA-C [address] [place] [address] Dispatcher Maintenance Family Medicine 06/29/24 Stem Roller Relationship Specialty Start Date End Date Valeriano Beasley MD [address] [place] [address] PCP - General Family Medicine 03/15/21 Ni Sauceda APRN.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 MANAGER [address] [place] [address] Dispatcher Maintenance Family Medicine 06/29/24 Suzanna Dawson PA-C [address] [place] [address] [facility] 06/29/24 Stem Roller Relationship Specialty Start Date End Date Valeriano Beasley MD [address] [place] [address] PCP - General Family Medicine 03/15/21 Ni Sauceda APRN.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 MANAGER [address] [place] [address] [facility] Suzanna Dawson PA-C [address] [place] [address] [facility] 06/29/24 Stem Roller Relationship Specialty Start Date End Date Valeriano Beasley MD [address] [place] [address] PCP - General Family Medicine 03/15/21 Ni Sauceda APRN.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 MANAGER [address] [place] [address] Dispatcher Maintenance Family Medicine 06/29/24 Suzanna Dawson PA-C [address] [place] [address] Dispatcher Maintenance Family Medicine 06/29/24 Stem Roller Relationship Specialty Start Date End Date Valeriano Beasley MD [address] [place] [address] PCP - General Family Medicine 03/15/21 Ni Sauceda APRN.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 MANAGER [address] [place] [address] Dispatcher Maintenance Family Medicine 06/29/24 Suzanna Dawson PA-C [address] [place] [address] Dispatcher Maintenance Family [facility] 06/29/24 Stem Roller Relationship Specialty Start Date End Date Valeriano Beasley MD [address] [place] [address] PCP - General Family Medicine 03/15/21 Ni Sauceda APRN.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 MANAGER [facility] [place] [address] Dispatcher Maintenance Family Medicine 06/29/24 Suzanna Dawson PA-C [address] [place] [address] Dispatcher Maintenance Family Medicine 06/29/24 Stem Roller Relationship Specialty Start Date End Date Valeriano Beasley MD [address] [place] [address] PCP - General Family Medicine 03/15/21 Ni Sauceda APRN.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 MANAGER [address] [place] [address] Dispatcher Maintenance Family [facility] 06/29/24 Suzanna Dawson PA-C [address] [place] [address] [facility] 06/29/24 Stem Roller Relationship Specialty Start Date End Date Valeriano Beasley MD [address] [place] [address] PCP - General Family Medicine 03/15/21 Ni Sauceda, TELEVISION SERVICE ENGINEER.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 MANAGER [address] [place] [address] [facility] 06/29/24 Suzanna Dawson PA-C [address] [place] [address] [facility] 06/29/24 Patria Khanna Jr., MD [address] [place] [address] Neurology 09/25/24 Stem Roller Relationship Specialty Start Date End Date Valeriano Beasley MD [address] [place] [address] PCP - General Family Medicine 03/15/21 Ni Sauceda, TELEVISION SERVICE ENGINEER.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 MANAGER [address] [place] [address] [facility] Family [facility] 06/29/24 Suzanna Dawson PA-C [address] [place] [address] [facility] Family Medicine 06/29/24 Patria Khanna Jr., MD [address] [place] [address] Neurology 09/25/24 Team Status: Active Member Role [...] 2024 End: September 19, 2024 Dr. Valeriano Beasley MD Referring Provider Active Start: September [...] October 11, 2024 End: October 11, 2024 Stem Roller Relationship Specialty Start Date End Date Valeriano Beasley MD [address] [place] [address] [id number] PCP - General Family Medicine 03/15/21 Ni Sauceda APRN.CNP [address] [place] [address] [id number] Dispatcher Maintenance Family Medicine 06/29/24 Suzanna Dawson PA-C [address] [place] [address] 087461 Dispatcher Maintenance Family Medicine 06/29/24 Patria Khanna Jr., MD [address] [place] [address] [phone] Neurology 09/25/24 Stem Roller Relationship Specialty Start Date End Date Valeriano Beasley MD [facility] [place] [address] PCP - General Family Medicine 03/15/21 Ni Sauceda APRN.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 MANAGER [facility] [place] [address] Dispatcher Maintenance Family Medicine 06/29/24 Suzanna Dawson PA-C [address] [place] [address] Dispatcher Maintenance Family Medicine 06/29/24 Patria Khanna Jr., MD [address] [place] [address] Neurology 09/25/24 Stem Roller Relationship Specialty Start Date End Date Valeriano Beasley MD [facility] [place] [address] PCP - General Family Medicine 03/15/21 Ni Sauceda APRN.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 MANAGER [address] [place] [address] Dispatcher Maintenance Family Medicine 06/29/24 Suzanna Dawson PA-C [facility] [place] [address] Dispatcher Maintenance Family Medicine 06/29/24 Patria Khanna Jr., MD [facility] [place] [address] Neurology 09/25/24 Stem Roller Relationship Specialty Start Date End Date Valeriano Beasley MD [address] [place] [address] PCP - General Family Medicine 03/15/21 Ni Sauceda APRN.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 MANAGER [address] [place] [address] [facility] 06/29/24 Suzanna Dawson PA-C [address] [place] [address] [facility] Patria Khanna Jr., MD [address] [place] [address] Neurology 09/25/24 Stem Roller Relationship Specialty Start Date End Date Valeriano Beasley MD [address] [place] [address] PCP - General Family Medicine 03/15/21 Ni Sauceda APRN.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 MANAGER [address] [place] [address] [facility] 06/29/24 Suzanna Dawson PA-C [address] [place] [address] [facility] 06/29/24 Patria Khanna Jr., MD [address] [place] [address] Neurology 09/25/24 Stem Roller Relationship Specialty Start Date End Date Valeriano Beasley MD [address] [place] [address] PCP - General Family Medicine 03/15/21 Ni Sauceda APRN.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 MANAGER [address] [place] [address] [facility] 06/29/24 Suzanna Dawson PA-C [address] [place], [place] 788971 [facility] 06/29/24 Patria Khanna Jr., MD [address] [place] [address] [phone] Neurology 09/25/24 Team Status: Inactive Member Role Status Dates Dr. Valeriano Beasley MD Primary Care Provider Active Start: November 05, 2024 End: November 05, 2024 Dr. Valeriano Beasley MD Referring Provider Active Start: November 05, 2024 End: November 05, 2024 Estefany Thrasher NP, CLINICAL DIETICIAN-C Attending Provider Active Start: November 05, 2024 [...] November 05, 2024 End: November 05, 2024 Stem Roller Relationship Specialty Start Date End Date Valeriano Beasley MD [address] [place] [address] 401011 PCP - General Family Medicine 03/15/21 Ni Sauceda APRN.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 MANAGER [address] [place] [address] [phone] [facility] 06/29/24 Suzanna Dawson PA-C [address] [place], [place] [id number] [facility] 06/29/24 Patria Khanna Jr., MD [address] [place] [address] Neurology 09/25/24 Stem Roller Relationship Specialty Start Date End Date Valeriano Beasley MD [address] [place] [address] PCP - General Family Medicine 03/15/21 Patria Khanna Jr., MD [address] [place] [address] Neurology 09/25/24 Ni Sauceda APRN.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 MANAGER [address] [place] [address] Dispatcher Maintenance Family Medicine 12/23/24 Suzanna Dawson PA-C [address] [place] [address] Dispatcher Maintenance Family Medicine 12/23/24 Stem Roller Relationship Specialty Start Date End Date Valeriano Beasley MD [address] [place] [address] PCP - General Family Medicine 03/15/21 Patria Khanna Jr., MD [address] [place] [address] Neurology 09/25/24 Ni Sauceda APRN.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 MANAGER [address] [place] [address] Dispatcher Maintenance Family Medicine 12/23/24 Suzanna Dawson PA-C [facility] [place] [address] [facility] Family Medicine 12/23/24 Team Status: Active [...] Provider Active Star t: December 30, 2024 Stem Roller Relationship Specialty Start Date End Date Valeriano Beasley MD [facility] [place] [address] PCP - General Family Medicine 03/15/21 Patria Khanna Jr., MD [address] [place] [address] [phone] Neurology 09/25/24 Ni Sauceda APRN.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 MANAGER [facility] [place], [place] 324841 Dispatcher Maintenance Family Medicine 12/23/24 Suzanna Dawson PA-C [address] [place] [address] [phone] Dispatcher Maintenance Family Medicine 12/23/24 Stem Roller Relationship Specialty Start Date End Date Valeriano Beasley MD [address] [place] [address] PCP - General Family Medicine 03/15/21 Ni Sauceda APRN.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 MANAGER [address] [place] [phone] Dispatcher Maintenance Family Medicine 06/29/24 12/08/24 Suzanna Dawson PA-C [address] [place] [address] Dispatcher Maintenance Family Medicine 06/29/24 12/22/24 Patria Khanna Jr., MD [address] [place] [address] Neurology 09/25/24 Ni Sauceda APRN.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 MANAGER [address] [place] [id number] Dispatcher Maintenance Family [facility] 12/23/24 Suzanna Dawson PA-C [address] [place] [id number] [facility] Stem Roller Relationship Specialty Start Date End Date Valeriano Beasley MD [address] [place] [address] [id number] PCP - General Family Medicine 03/15/21 Ni Sauceda APRN.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 MANAGER [address] [place] [address] [phone] Dispatcher Maintenance Family [facility] 06/29/24 12/08/24 Suzanna Dawson PA-C [facility] [place] [address] [facility] 06/29/24 12/22/24 Patria Khanna Jr., MD [address] [place], [place] [id number] Neurology 09/25/24 Ni Sauceda, SUNIL.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 MANAGER [address] [place], [place] [id number] [facility] 12/23/24 Suzanna Dawson PA-C [address] [place], [place] [address] [facility] 12/23/24 Stem Roller Relationship Specialty Start Date End Date Valeriano Beasley MD [address] [place], [place] [phone] PCP - General Family Medicine 03/15/21 Patria Khanna Jr., MD [address] [place] [address] [phone] Neurology 09/25/24 Ni Sauceda, SUNIL.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 MANAGER [address] [place] [address] [phone] [facility] 12/23/24 Suzanna Dawson PA-C [address] [place] [address] [facility] 12/23/24 Team Status: Active Member Role/Relationship [...] End: November 05, 2024 Estefany Thrasher NP, CLINICAL DIETICIAN-C Attending Provider Active Start: November 05, 2024 [...] 27, 2024 End: December 30, 2024 Dr. eTssa Ty MD Other Provider Active Sta rt: [...] Start : December 30, 2024 Dr. Isabel Haegn MD Other Provider Active Star t: December 30, 2024 Dr. Jaquelin iSngh MD Other Provider Active Sta rt: December [...] or prosecute any alcohol or drug abuse patient.[facility] the event this information is protected by the Federal Confidentiality of Alcohol and Drug Abuse Patient Records regulations: The Federal rules restrict any use of the information to criminally investigate or prosecute any alcohol or drug abuse patient.[facility]In the event this information is protected by the Federal Confidentiality of Alcohol and Drug Abuse Patient Records regulations: The Federal rules restrict any use of the information to criminally investigate or prosecute any alcohol or drug abuse patient.[facility]In the event this information is protected by the Federal Confidentiality of Alcohol and Drug Abuse Patient Records regulations: The Federal rules restrict any use of the information to criminally investigate or prosecute any alcohol or drug abuse patient.[facility]In the event this information is protected by the Federal Confidentiality of Alcohol and Drug Abuse Patient Records regulations: The Federal rules restrict any use of the information to criminally investigate or prosecute any alcohol or drug abuse patient.[facility]In the event this information is protected by the Federal Confidentiality of Alcohol and Drug Abuse Patient Records regulations: The Federal rules restrict any use of the information to criminally investigate or prosecute any alcohol or drug abuse patient.[facility] HospitalIn the event this information is protected by the Federal Confidentiality of Alcohol and Drug Abuse Patient Records regulations: The Federal rules restrict any use of the information to criminally investigate or prosecute any alcohol or drug abuse patient.[facility] HospitalIn the event this information is protected by the Federal Confidentiality of Alcohol and Drug Abuse Patient Records regulations: The Federal rules restrict any use of the information to criminally investigate or prosecute any alcohol or drug abuse patient.[facility] HospitalIn the event this information is protected by the Federal Confidentiality of Alcohol and Drug Abuse Patient Records regulations: The Federal rules restrict any use of the information to criminally investigate or prosecute any alcohol or drug abuse patient.[facility] HospitalIn the event this information is protected by the Federal Confidentiality of Alcohol and Drug Abuse Patient Records regulations: The Federal rules restrict any use of the information to criminally investigate or prosecute any alcohol or drug abuse patient.[facility] HospitalIn the event this information is protected by the Federal Confidentiality of Alcohol and Drug Abuse Patient Records regulations: The Federal rules restrict any use of the information to criminally investigate or prosecute any alcohol or drug abuse patient.[facility] HospitalIn the event this information is protected by the Federal Confidentiality of Alcohol and Drug Abuse Patient Records regulations: The Federal rules restrict any use of the information to criminally investigate or prosecute any alcohol or drug abuse patient.[facility] HospitalIn the event this information is protected by the Federal Confidentiality of Alcohol and Drug Abuse Patient Records regulations: The Federal rules restrict any use of the information to criminally investigate or prosecute any alcohol or drug abuse patient.[facility] HospitalIn the event this information is protected by the Federal Confidentiality of Alcohol and Drug Abuse Patient Records regulations: The Federal rules restrict any use of the information to criminally investigate or prosecute any alcohol or drug abuse patient.[facility] HospitalIn the event this information is protected by the Federal Confidentiality of Alcohol and Drug Abuse Patient Records regulations: The Federal rules restrict any use of the information to criminally investigate or prosecute any alcohol or drug abuse patient.[facility] HospitalIn the event this information is protected by the Federal Confidentiality of Alcohol and Drug Abuse Patient Records regulations: The Federal rules restrict any use of the information to criminally investigate or prosecute any alcohol or drug abuse patient.[facility] HospitalIn the event this information is protected by the Federal Confidentiality of Alcohol and Drug Abuse Patient Records regulations: The Federal rules restrict any use of the information to criminally investigate or prosecute any alcohol or drug abuse patient.[facility] HospitalIn the event this information is protected by the Federal Confidentiality of Alcohol and Drug Abuse Patient Records regulations: The Federal rules restrict any use of the information to criminally investigate or prosecute any alcohol or drug abuse patient.[facility] HospitalIn the event this information is protected by the Federal Confidentiality of Alcohol and Drug Abuse Patient Records regulations: The Federal rules restrict any use of the information to criminally investigate or prosecute any alcohol or drug abuse patient.[facility] HospitalIn the event this information is protected by the Federal Confidentiality of Alcohol and Drug Abuse Patient Records regulations: The Federal rules restrict any use of the information to criminally investigate or prosecute any alcohol or drug abuse patient.[facility] HospitalIn the event this information is protected by the Federal Confidentiality of Alcohol and Drug Abuse Patient Records regulations: The Federal rules restrict any use of the information to criminally investigate or prosecute any alcohol or drug abuse patient.[facility] HospitalIn the event this information is protected by the Federal Confidentiality of Alcohol and Drug Abuse Patient Records regulations: The Federal rules restrict any use of the information to criminally investigate or prosecute any alcohol or drug abuse patient.[facility] HospitalIn the event this information is protected by the Federal Confidentiality of Alcohol and Drug Abuse Patient Records regulations: The Federal rules restrict any use of the information to criminally investigate or prosecute any alcohol or drug abuse patient.[facility] HospitalIn the event this information is protected by the Federal Confidentiality of Alcohol and Drug Abuse Patient Records regulations: The Federal rules restrict any use of the information to criminally investigate or prosecute any alcohol or drug abuse patient.[facility] HospitalIn the event this information is protected by the Federal Confidentiality of Alcohol and Drug Abuse Patient Records regulations: The Federal rules restrict any use of the information to criminally investigate or prosecute any alcohol or drug abuse patient.[facility] HospitalIn the event this information is protected by the Federal Confidentiality of Alcohol and Drug Abuse Patient Records regulations: The Federal rules restrict any use of the information to criminally investigate or prosecute any alcohol or drug abuse patient.[facility] HospitalIn the event this information is protected by the Federal Confidentiality of Alcohol and Drug Abuse Patient Records regulations: The Federal rules restrict any use of the information to criminally investigate or prosecute any alcohol or drug abuse patient.[facility] HospitalIn the event this information is protected by the Federal Confidentiality of Alcohol and Drug Abuse Patient Records regulations: The Federal rules restrict any use of the information to criminally investigate or prosecute any alcohol or drug abuse patient.[facility] HospitalIn the event this information is protected by the Federal Confidentiality of Alcohol and Drug Abuse Patient Records regulations: The Federal rules restrict any use of the information to criminally investigate or prosecute any alcohol or drug abuse patient.[facility] HospitalIn the event this information is protected by the Federal Confidentiality of Alcohol and Drug Abuse Patient Records regulations: The Federal rules restrict any use of the information to criminally investigate or prosecute any alcohol or drug abuse patient.[facility] HospitalIn the event this information is protected by the Federal Confidentiality of Alcohol and Drug Abuse Patient Records regulations: The Federal rules restrict any use of the information to criminally investigate or prosecute any alcohol or drug abuse patient.[facility] HospitalIn the event this information is protected by the Federal Confidentiality of Alcohol and Drug Abuse Patient Records regulations: The Federal rules restrict any use of the information to criminally investigate or prosecute any alcohol or drug abuse patient.[facility] HospitalIn the event this information is protected by the Federal Confidentiality of Alcohol and Drug Abuse Patient Records regulations: The Federal rules restrict any use of the information to criminally investigate or prosecute any alcohol or drug abuse patient.[facility] HospitalIn the event this information is protected by the Federal Confidentiality of Alcohol and Drug Abuse Patient Records regulations: The Federal rules restrict any use of the information to criminally investigate or prosecute any alcohol or drug abuse patient.[facility] HospitalIn the event this information is protected by the Federal Confidentiality of Alcohol and Drug Abuse Patient Records regulations: The Federal rules restrict any use of the information to criminally investigate or prosecute any alcohol or drug abuse patient.[facility] HospitalIn the event this information is protected by the Federal Confidentiality of Alcohol and Drug Abuse Patient Records regulations: The Federal rules restrict any use of the information to criminally investigate or prosecute any alcohol or drug abuse patient.[facility] HospitalIn the event this information is protected by the Federal Confidentiality of Alcohol and Drug Abuse Patient Records regulations: The Federal rules restrict any use of the information to criminally investigate or prosecute any alcohol or drug abuse patient.[facility] HospitalIn the event this information is protected by the Federal Confidentiality of Alcohol and Drug Abuse Patient Records regulations: The Federal rules restrict any use of the information to criminally investigate or prosecute any alcohol or drug abuse patient.[facility] HospitalIn the event this information is protected by the Federal Confidentiality of Alcohol and Drug Abuse Patient Records regulations: The Federal rules restrict any use of the information to criminally investigate or prosecute any alcohol or drug abuse patient.[facility] HospitalIn the event this information is protected by the Federal Confidentiality of Alcohol and Drug Abuse Patient Records regulations: The Federal rules restrict any use of the information to criminally investigate or prosecute any alcohol or drug abuse patient.[facility] HospitalIn the event this information is protected by the Federal Confidentiality of Alcohol and Drug Abuse Patient Records regulations: The Federal rules restrict any use of the information to criminally investigate or prosecute any alcohol or drug abuse patient.[facility] HospitalIn the event this information is protected by the Federal Confidentiality of Alcohol and Drug Abuse Patient Records regulations: The Federal rules restrict any use of the information to criminally investigate or prosecute any alcohol or drug abuse patient.[facility] HospitalIn the event this information is protected by the Federal Confidentiality of Alcohol and Drug Abuse Patient Records regulations: The Federal rules restrict any use of the information to criminally investigate or prosecute any alcohol or drug abuse patient.[facility] HospitalIn the event this information is protected by the Federal Confidentiality of Alcohol and Drug Abuse Patient Records regulations: The Federal rules restrict any use of the information to criminally investigate or prosecute any alcohol or drug abuse patient.[facility] HospitalIn the event this information is protected by the Federal Confidentiality of Alcohol and Drug Abuse Patient Records regulations: The Federal rules restrict any use of the information to criminally investigate or prosecute any alcohol or drug abuse patient.[facility] HospitalIn the event this information is protected by the Federal Confidentiality of Alcohol and Drug Abuse Patient Records regulations: The Federal rules restrict any use of the information to criminally investigate or prosecute any alcohol or drug abuse patient.[facility] HospitalIn the event this information is protected by the Federal Confidentiality of Alcohol and Drug Abuse Patient Records regulations: The Federal rules restrict any use of the information to criminally investigate or prosecute any alcohol or drug abuse patient.[facility] HospitalIn the event this information is protected by the Federal Confidentiality of Alcohol and Drug Abuse Patient Records regulations: The Federal rules restrict any use of the information to criminally investigate or prosecute any alcohol or drug abuse patient.[facility] HospitalIn the event this information is protected by the Federal Confidentiality of Alcohol and Drug Abuse Patient Records regulations: The Federal rules restrict any use of the information to criminally investigate or prosecute any alcohol or drug abuse patient.[facility] HospitalIn the event this information is protected by the Federal Confidentiality of Alcohol and Drug Abuse Patient Records regulations: The Federal rules restrict any use of the information to criminally investigate or prosecute any alcohol or drug abuse patient.[facility] HospitalIn the event this information is protected by the Federal Confidentiality of Alcohol and Drug Abuse Patient Records regulations: The Federal rules restrict any use of the information to criminally investigate or prosecute any alcohol or drug abuse patient.[facility] HospitalIn the event this information is protected by the Federal Confidentiality of Alcohol and Drug Abuse Patient Records regulations: The Federal rules restrict any use of the information to criminally investigate or prosecute any alcohol or drug abuse patient.[facility] HospitalIn the event this information is protected by the Federal Confidentiality of Alcohol and Drug Abuse Patient Records regulations: The Federal rules restrict any use of the information to criminally investigate or prosecute any alcohol or drug abuse patient.[facility]In the event this information is protected by the Federal Confidentiality of Alcohol and Drug Abuse Patient Records regulations: The Federal rules restrict any use of the information to criminally investigate or prosecute any alcohol or drug abuse patient.[facility] HospitalIn the event this information is protected by the Federal Confidentiality of Alcohol and Drug Abuse Patient Records regulations: The Federal rules restrict any use of the information to criminally investigate or prosecute any alcohol or drug abuse patient.[facility] HospitalIn the event this information is protected by the Federal Confidentiality of Alcohol and Drug Abuse Patient Records regulations: The Federal rules restrict any use of the information to criminally investigate or prosecute any alcohol or drug abuse patient.[facility]In the event this information is protected by the Federal Confidentiality of Alcohol and Drug Abuse Patient Records regulations: The Federal rules restrict any use of the information to criminally investigate or prosecute any alcohol or drug abuse patient.[facility]In the event this information is protected by the Federal Confidentiality of Alcohol and Drug Abuse Patient Records regulations: The Federal rules restrict any use of the information to criminally investigate or prosecute any alcohol or drug abuse patient.[facility]In the event this information is protected by the Federal Confidentiality of Alcohol and Drug Abuse Patient Records regulations: The Federal rules restrict any use of the information to criminally investigate or prosecute any alcohol or drug abuse patient.[facility]In the event this information is protected by the Federal Confidentiality of Alcohol and Drug Abuse Patient Records regulations: The Federal rules restrict any use of the information to criminally investigate or prosecute any alcohol or drug abuse patient.[facility]In the event this information is protected by the Federal Confidentiality of Alcohol and Drug Abuse Patient Records regulations: The Federal rules restrict any use of the information to criminally investigate or prosecute any alcohol or drug abuse patient.[facility]In the event this information is protected by the Federal Confidentiality of Alcohol and Drug Abuse Patient Records regulations: The Federal rules restrict any use of the information to criminally investigate or prosecute any alcohol or drug abuse patient.[facility]In the event this information is protected by the Federal Confidentiality of Alcohol and Drug Abuse Patient Records regulations: The Federal rules restrict any use of the information to criminally investigate or prosecute any alcohol or drug abuse patient.[facility]In the event this information is protected by the Federal Confidentiality of Alcohol and Drug Abuse Patient Records regulations: The Federal rules restrict any use of the information to criminally investigate or prosecute any alcohol or drug abuse patient.[facility]In the event this information is protected by the Federal Confidentiality of Alcohol and Drug Abuse Patient Records regulations: The Federal rules restrict any use of the information to criminally investigate or prosecute any alcohol or drug abuse patient.[facility]In the event this information is protected by the Federal Confidentiality of Alcohol and Drug Abuse Patient Records regulations: The Federal rules restrict any use of the information to criminally investigate or prosecute any alcohol or drug abuse patient.[facility]In the event this information is protected by the Federal Confidentiality of Alcohol and Drug Abuse Patient Records regulations: The Federal rules restrict any use of the information to criminally investigate or prosecute any alcohol or drug abuse patient.[facility]In the event this information is protected by the Federal Confidentiality of Alcohol and Drug Abuse Patient Records regulations: The Federal rules restrict any use of the information to criminally investigate or prosecute any alcohol or drug abuse patient.[facility]In the event this information is protected by the Federal Confidentiality of Alcohol and Drug Abuse Patient Records regulations: The Federal rules restrict any use of the information to criminally investigate or prosecute any alcohol or drug abuse patient.[facility]In the event this information is protected by the Federal Confidentiality of Alcohol and Drug Abuse Patient Records regulations: The Federal rules restrict any use of the information to criminally investigate or prosecute any alcohol or drug abuse patient.[facility]In the event this information is protected by the Federal Confidentiality of Alcohol and Drug Abuse Patient Records regulations: The Federal rules restrict any use of the information to criminally investigate or prosecute any alcohol or drug abuse patient.[facility]In the event this information is protected by the Federal Confidentiality of Alcohol and Drug Abuse Patient Records regulations: The Federal rules restrict any use of the information to criminally investigate or prosecute any alcohol or drug abuse patient.[facility]In the event this information is protected by the Federal Confidentiality of Alcohol and Drug Abuse Patient Records regulations: The Federal rules restrict any use of the information to criminally investigate or prosecute any alcohol or drug abuse patient.[facility]In the event this information is protected by the Federal Confidentiality of Alcohol and Drug Abuse Patient Records regulations: The Federal rules restrict any use of the information to criminally investigate or prosecute any alcohol or drug abuse patient.[facility]In the event this information is protected by the Federal Confidentiality of Alcohol and Drug Abuse Patient Records regulations: The Federal rules restrict any use of the information to criminally investigate or prosecute any alcohol or drug abuse patient.[facility]In the event this information is protected by the Federal Confidentiality of Alcohol and Drug Abuse Patient Records regulations: The Federal rules restrict any use of the information to criminally investigate or prosecute any alcohol or drug abuse patient.[facility]In the event this information is protected by the Federal Confidentiality of Alcohol and Drug Abuse Patient Records regulations: The Federal rules restrict any use of the information to criminally investigate or prosecute any alcohol or drug abuse patient.[facility]In the event this information is protected by the Federal Confidentiality of Alcohol and Drug Abuse Patient Records regulations: The Federal rules restrict any use of the information to criminally investigate or prosecute any alcohol or drug abuse patient.[facility]In the event this information is protected by the Federal Confidentiality of Alcohol and Drug Abuse Patient Records regulations: The Federal rules restrict any use of the information to criminally investigate or prosecute any alcohol or drug abuse patient.[facility]In the event this information is protected by the Federal Confidentiality of Alcohol and Drug Abuse Patient Records regulations: The Federal rules restrict any use of the information to criminally investigate or prosecute any alcohol or drug abuse patient.[facility] HospitalIn the event this information is protected by the Federal Confidentiality of Alcohol and Drug Abuse Patient Records regulations: The Federal rules restrict any use of the information to criminally investigate or prosecute any alcohol or drug abuse patient.[facility] the event this information is protected by the Federal Confidentiality of Alcohol and Drug Abuse Patient Records regulations: The Federal rules restrict any use of the information to criminally investigate or prosecute any alcohol or drug abuse patient.[facility]In the event this information is protected by the Federal Confidentiality of Alcohol and Drug Abuse Patient Records regulations: The Federal rules restrict any use of the information to criminally investigate or prosecute any alcohol or drug abuse patient.[facility] the event this information is protected by the Federal Confidentiality of Alcohol and Drug Abuse Patient Records regulations: The Federal rules restrict any use of the information to criminally investigate or prosecute any alcohol or drug abuse patient.[facility] Hospital[facility] the event this information is protected by the Federal Confidentiality of Alcohol and Drug Abuse Patient Records regulations: The Federal rules restrict any use of the information to criminally investigate or prosecute any alcohol or drug abuse patient.[facility] HospitalIn the event this information is protected by the Federal Confidentiality of Alcohol and Drug Abuse Patient Records regulations: The Federal rules restrict any use of the information to criminally investigate or prosecute any alcohol or drug abuse patient.[facility] Hospital[facility] the event this information is protected by the Federal Confidentiality of Alcohol and Drug Abuse Patient Records regulations: The Federal rules restrict any use of the information to criminally investigate or prosecute any alcohol or drug abuse patient.[facility] HospitalIn the event this information is protected by the Federal Confidentiality of Alcohol and Drug Abuse Patient Records regulations: The Federal rules restrict any use of the information to criminally investigate or prosecute any alcohol or drug abuse patient.[facility] HospitalIn the event this information is protected by the Federal Confidentiality of Alcohol and Drug Abuse Patient Records regulations: The Federal rules restrict any use of the information to criminally investigate or prosecute any alcohol or drug abuse patient.[facility] Reason for Visit (unrecogniz ed section and content) Reason Comments Appointment Reason Comments Insurance Authorization Reason Comments Orders Reason Comments Medicare Wellness Exam Reason Comments Consult Consult [facility] Reason Comments Results EGD results - [...] Date Comments Population Health Navigation Outreach 08/25/2023 [facility] AWV Reason Comments Radiology CT Specialty Diagnoses / Procedures Referred By Sarkis t Referred To Contact CT IMAGING Diagnoses Other specified disorders of kidney and ureter Kidney lesion Procedures CT KIDNEY WO/W IVCON CT ABDOMEN W & W/O CONTRAST Valeriano Beasley MD [address] [place] [address] [place] [address] Referral ID Status Reason Start Date Expiration Date V isits Requested Visits Authorized [id number] Closed Auto-Generate d Referral 08/21/2023 09/19/2024 1 1 Reason Comments Outside Orthopedics Reason Comments outside imaging Reason Comments Outside Cardiology labs Reason Comments [facility] Reason Onset Date Comments Refill Request 09/25/2023 Reason Comments Outside Echo US Reason Onset Date Comments Population Health Navigation Outreach 10/14/2023 [facility] Annual Wellness Visit Reason Comments Orders labs Reason Comments Ext / Nuclear Stress Test Reason Comments Patient Question Reason Comments New Patient New patient. Pt repo rted bilateral numbness, weakness hands, feet x2 yrs. Specialty Diagnoses / Procedures Referred By Contac t Referred To Contact Neurology Diagnoses Balance problems Procedures CONSULT TO NEUROLOGY OFFICE/OUTPATIENT [facility] 60 MINUTES Suzanna Dawsno PA-C [address] [facility] [place] [address] Referral ID Status Reason Start Date Expiration Date V isits Requested Visits Authorized [id number] Closed PCP Requested Referral 2023 10/18/2024 1 1 Reason Onset Date Comments Refill Request 01/08/2024 Reason Comments Outside Cardiology Specialty Diagnoses / Procedures Referred By Contac t Referred To Contact MR IMAGING Diagnoses Other symptoms and signs involving the nervous system Procedures MRA CAROTID WO IVCON MRA, NECK; W/O CONTRAST Patria Khanna Jr., MD [facility] [place] [address] [place] [address] Referral ID Status Reason Start Date Expiration Date V isits Requested Visits Authorized [id number] Closed Auto-Generate d Referral 01/01/2024 01/30/2025 1 1 Specialty Diagnoses / Procedures Referred By Contac t Referred To Contact MR IMAGING Diagnoses Other symptoms and signs involving the nervous system Procedures MRA BRAIN WO IVCON MRA, HEAD W/O CONTRAST Patria Khanna Jr., MD [facility] [facility] [address] [place] [address] [place] [address] Referral ID Status Reason Start Date Expiration Date V isits Requested Visits Authorized [id number] Closed Auto-Generate d Referral 01/01/2024 01/30/2025 1 1 Reason Comments Results Specialty Diagnoses / Procedures Referred By Contac t Referred To Contact CT IMAGING Diagnoses Occlusion and stenosis of unspecified carotid artery Procedures CTA NECK W IVCON CT ANGIOGRAPHY NECK W/CONTRAST/NONCONTRAST Patria Khanna Jr., MD [facility] [address] [place] [address] [place] [address] Referral ID Status Reason Start Date Expiration Date V isits Requested Visits Authorized [id number] Closed Auto-Generate d Referral 02/07/2024 03/08/2025 1 [...] [facility] 60 [place] [address] [place] [address] Referral ID Status Reason Start Date Expiration Date V isits Requested Visits Authorized [id number] Closed PCP Requested Referral 07/31/2024 07/31/2025 1 1 Reason Comments Established Patient Balance problems, pt states balance is ok some days, neuropathy worsening Reason Comments Abnormal Lab Specialty Diagnoses / Procedures Referred By Contac t Referred To Contact Rheumatology Diagnoses Positive GALLO (antinuclear antibody) Procedures CONSULT TO RHEUM/IMMUN DISEASE OFFICE/OUTPATIENT [facility] 60 MINUTES Patria Khanna Jr., MD [address] [place] [address] Phone: tel: fax: Referral ID Status Reason Start Date Expiration Date V isits Requested Visits Authorized [id number] Closed PCP Requested Referral 08/30/2024 08/30/2025 1 1 Reason Comments Outside Imaging Reason Comments Outside Uind-Jyf-ASD Ordered Reason Comments Results Outside labs Reason Comments Outside Imaging Urology Reason Comments New Patient Reason Comments Established Patient Reason Comments 6 Month Exam Reason Comments Radiology US Specialty Diagnoses / Procedures Referred By Contac t Referred To Contact US IMAGING Diagnoses Screening for abdominal aortic aneurysm Procedures US SCREENING FOR AAA US ABDOMINAL AORTA REAL TIME SCREEN STUDY AAA Ni Sauceda, SUNIL.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 MANAGER [address] [id number] Phone: tel: fax: [place] [address] Referral ID Status Reason Start Date Expiration Date V isits Requested Visits Authorized [id number] Closed Auto-Generate d Referral 11/01/2024 12/01/2025 1 [...] Role: Primary Care Physician Address: Address: [address] [place] [address]- Care Team Related Persons Name: KALINPRICEJOSE AU Goals (unrecognized section and content) Goals may be documented in a n alternate section (unrecognized sect ion and content) No Status Records FoundNo Status Records FoundNo Status Records FoundNo Status Records Found INFORMATION SOURCE (unrecogn ized section and content) DATE CREATED AUTHOR 01/03/2023 [facility] ([place]) DATE CREATED AUTHOR AUTHOR'S ORGANIZ ATION 08/11/2023 [facility] DATE CREATED AUTHOR AUTHOR'S ORGANIZ ATION 01/03/2025 [facility] DATE CREATED AUTHOR AUTHOR'S ORGANIZ ATION 01/13/2025 [facility] FOR RECORDS PERTAINING TO PATIENTS WHO ARE [...] BE BASED ON THE PRIMARY CLINICAL RECORDS. [employer] provides no warranty or guarantee of the accuracy or completeness of information in this document.
[2025-01-23 23:55] LABS: Magnesium 2.1 mg/dL (1.5-2.2)
[2025-01-24] MEDS: Pantoprazole Sodium 40 MG in 0.9% Normal Saline (100mL MB+) 100 ML 300 MG IV ×3 (00:11→20:13)
[2025-01-24] MEDS: 0.9% Normal Saline (1000mL) 1,000 ML 100 ML IV ×2 (00:12→09:21)
[2025-01-24 03:01] LABS: Iron 91 ug/dL (65-175); Iron Binding Capacity,Total 270 ug/dL (250-450); Iron Binding Capacity,Unsat 179 ug/dL (228-428)
[2025-01-24 03:30] VITALS: BP 127/76; PULSE 76; RESP 18; TEMP 35.8; O2SAT 94
[2025-01-24 03:32] VITALS: BMI 29.6
[2025-01-24 04:31] LABS: Hematocrit 28.4 % (40-54); Hemoglobin 9.9 g/dL (13.0-16.5); Immature Granulocytes Count 0.020 X10^3/uL (0.0-0.0); Mean Corp Hgb Conc 34.9 g/dL (32-36); Mean Corpuscular Volume 105.6 fL (80-94); Mean Platelet Vol. 9.6 fl (6.2-12.0); NRBC Flagged by Analyzer 0 % (0-5); Platelet Count 144 K/mm3 (150-450); RBC Distribution Width CV 14.0 % (11.6-14.6); RBC Distribution Width SD 52.3 fl (35.1-43.9); Red Blood Count 2.69 M/mm3 (4.6-6.2); White Blood Count 4.5 K/mm3 (4.4-11.0)
[2025-01-24 04:56] LABS: AST(SGOT) 33 U/L (<=37); Alanine Aminotransfer ALT/SGPT 24 U/L (<=46); Albumin, Serum 3.5 g/dL (3.4-4.8); Alkaline Phosphatase 93 U/L (40-129); Anion Gap 9 (5-15); BUN 11 mg/dL (4-19); BUN/Creat Ratio 15.8 RATIO (10-20); Calcium,Total 8.5 mg/dL (7.6-11.0); Carbon Dioxide 22.5 mmol/L (21.0-32.0); Chloride 109 mmol/L (98-108); Estimated Creatinine Clearance 93.09 ml/min (50-250); Globulin 2.5 g/dL (2.2-4.2); Glucose 90 mg/dL (70-99); Potassium 3.5 mmol/L (3.3-5.1)
[2025-01-24 05:37] LABS: FOLATES,SERUM (FOLIC ACID) 23.30 ng/mL (4.60-34.80)
[2025-01-24 07:00] VITALS: PULSE 70
--- NOTE | 2025-01-24 07:47 | PCM.PN.HOSP ---
Reason for Visit Reason for Visit: Diagnoses Acute posthemorrhagic anemia (01/23/25) Overweight (01/23/25) Gastrointestinal hemorrhage, unspecified (01/23/25) Acute cystitis without hematuria (01/23/25) Adverse effect of unspecified drugs, medicaments and biological substances, initial encounter (01/23/25) Personal history of other diseases of the digestive system (01/23/25) Objective Data Objective Data Vital Signs: Vital Signs Temp Pulse Resp BP Pulse Ox O2 Del Method 96.4 F L 70 18 127/76 H 94 Room Air 01/24/25 03:30 01/24/25 07:00 01/24/25 03:30 01/24/25 03:30 01/24/25 03:30 01/24/25 03:39 Oxygen Delivery Method Room Air Weight: 206 lb 5.643 oz Body Mass Index (BMI) 29.6 Intake & Output: Intake and Output for Last 24 Hours 01/22/25 01/23/25 01/24/25 23:59 23:59 23:59 Intake Total 250 / 250 Output Total 0 / 0 Balance 250 / 250 Lab / Micro Data 01/24/25 04:04 01/24/25 04:04 Labs: Laboratory Results - last 24 hr 01/23/25 20:21: WBC 5.4, RBC 2.92 L, Hgb 10.5 L, Hct 31.0 L, MCV 106.2 H, MCH 36.0 H, MCHC 33.9, RDW Std Deviation 53.4 H, RDW Coeff of Dorie 13.8, Plt Count 167, MPV 9.5, Immature Gran % (Auto) 0.700, Neut % (Auto) 58.3, Lymph % (Auto) 16.0 L, Eaton % (Auto) 13.7 H, Eos % (Auto) 10.6 H, Baso % (Auto) 0.7, Absolute Neuts (auto) 3.1, Absolute Lymphs (auto) 0.86, Nucleated RBC % 0, Sodium 140, Potassium 3.8, Chloride 107, Carbon Dioxide 19.9 L, Anion Gap 13, BUN 12, Creatinine 0.82, Estim Creat Clear Calc 91.26, Est GFR (MDRD) Non-Af 92, BUN/Creatinine Ratio 15.1, Glucose 100 H, Hemoglobin A1c 5.5, Calcium 9.0, Magnesium 2.1, Iron 91, TIBC 270, Iron Saturation 34.0, Unsaturated IBC 179 L, Ferritin 101, Total Bilirubin 0.74, AST 35, ALT 30, Alkaline Phosphatase 103, Total Protein 6.6, Albumin 3.8, Globulin 2.9, Albumin/Globulin Ratio 1.3, Lipase 39, Vitamin B12 1003 H 01/23/25 21:09: Urine Color Straw, Urine Clarity Clear, Urine pH 6.0, Ur Specific [place] 1.015, Urine Protein Negative, Urine Glucose (UA) Normal, Urine Ketones Negative, Urine Occult Blood Negative, Urine Nitrite Negative, Urine Bilirubin Negative, Urine Urobilinogen Normal, Ur Leukocyte Esterase 100 H, Urine RBC 0-5 SEEN, Urine WBC 10-25 SEEN, Ur Squamous Epith Cells 0-5 SEEN, Urine Bacteria 0 SEEN, Urine Mucus 0 SEEN 01/23/25 21:40: Blood Type O POSITIVE, Antibody Screen NEGATIVE 01/24/25 04:04: WBC 4.5, RBC 2.69 L, Hgb 9.9 L, Hct 28.4 L, MCV 105.6 H, MCH 36.8 H, MCHC 34.9, RDW Std Deviation 52.3 H, RDW Coeff of Dorie 14.0, Plt Count 144 L, MPV 9.6, Immature Gran % (Auto) 0.400, Neut % (Auto) 60.1, Lymph % (Auto) 16.3 L, Eaton % (Auto) 12.8 H, Eos % (Auto) 10.2 H, Baso % (Auto) 0.2, Absolute Neuts (auto) 2.7, Absolute Lymphs (auto) 0.74 L, Nucleated RBC % 0, Sodium 141, Potassium 3.5, Chloride 109 H, Carbon Dioxide 22.5, Anion Gap 9, BUN 11, Creatinine 0.68 L, Estim Creat Clear Calc 93.09, Est GFR (MDRD) Non-Af 98, BUN/Creatinine Ratio 15.8, Glucose 90, Calcium 8.5, Phosphorus 2.9, Total Bilirubin 0.63, AST 33, ALT 24, Alkaline Phosphatase 93, Total Protein 6.0, Albumin 3.5, Globulin 2.5, Albumin/Globulin Ratio 1.4, Serum Folate 23.30, TSH 1.920 Physical Exam Narrative Patient had total 4 episodes of bright red tomorrow in color blood without stool since Monday night. Last bleeding was at 3 AM on 01/22. No abdominal pain. Seen and examined General: Alert, Oriented x3, Cooperative HEENT: Atraumatic, PERRLA, EOMI, Normocephalic. Oral: No Gingival or Mucosal Lesions/ Ulcerations Neck: Supple, No JVD, Negative Carotid Bruits Chest wall/Lungs: Air entry diminished in bilateral lung bases. No crepitation/rhonchi Cardiovascular: Regular rate and rhythm, Normal S1,S2, systolic murmur Abdomen: Bowel Sounds Present, Soft, Non Tender, mild swelling/mild ascites : No dysuria. No renal angle tenderness. No suprapubic tenderness. Extremities: No to minimal pedal edema, Capillary Refill Less than 3 Seconds Skin: No rashes, No breakdown Musculoskeletal: No Tenderness to Palpation of Joints or Extremities Neurological: Cranial nerves II-XII grossly intact, DTR 2+/4. No acute focal neurological deficit. Psych/Mental Status: Flat affect. Assessment & Plan Assessment/Plan (1) Acute lower gastrointestinal bleeding: (2) ABLA (acute blood loss anemia): (3) Adverse drug reaction: QUALIFIERS: Encounter type: initial encounter Qualified Code(s): T50.905A - Adverse effect of unspecified drugs, medicaments and biological substances, initial encounter (4) History of GI diverticular bleed: (5) Acute cystitis without hematuria: (6) Overweight (BMI 25.0-29.9): PLAN: Plan 74-year-old gentleman admitted with a dark red to maroon-colored stool x 3-day before yesterday. No abdominal pain. 1. Acute anemia of blood loss due to acute lower GI bleed suspected due to recurrent diverticular bleed: Patient is being admitted in PCU. Hemoglobin of 10.5 g/dL present on admission (down from 13.5 g/dL on December 30, 2024) with Macrocytosis of 106.2 fL present on admission. Repeat H&H in the morning 9.9/28% shows 2 g decreased from baseline therefore acute anemia of blood loss. IV PPI 40 mg once daily as it seems lower GI bleed. Clear liquid diet advance to full liquid. H&H Q6 hourly. - Admit to PCU. Keep n.p.o. except for ice chips, sips and medications. Start pantoprazole 40 mg IV twice daily. IV iron infusion ordered. Continue vitamin C. On oral ferrous sulfate at home There is no GI on-call this weekend. This was communicated to the patient. Previous colonoscopy in August 2022 for lower GI bleed at that time: Impression: - Non-bleeding internal hemorrhoids. - Diverticulosis in the recto-sigmoid colon, in the sigmoid colon, in the descending colon, at the splenic flexure and in the transverse colon. Injected. - Two 1 to 2 mm polyps in the sigmoid colon and in the cecum, removed using lift and cut and a hot snare. Resected and retrieved. Treated with argon plasma coagulation (APC). - Two bleeding colonic angiodysplastic lesions. Treated with argon plasma coagulation (APC). 2. Acute GI blood probably worsened by baby aspirin- Hold aspirin. 4. UA positive for Acute Cystitis without hematuria: UA negative of nitrite, LE 100, WBC 10-25 cells, RBC 0-5 cells, squamous epithelial 0-5 cells. 0 bacteria. Patient denies acute urinary tract symptoms including dysuria. Start IV ceftriaxone and await culture and sensitivity data. Urine culture ordered. 5. Recent admission here from December 27, 2024 to December 30, 2024 for treatment of acute respiratory failure due to recurrent angioedema, requiring intubation: Patient was not on losartan during December admission, because he had edema from losartan in the past therefore has been discontinued. Last thought to rule out hydrated etiology. Functional C1 esterase was done and it is 102% therefore was ruled out. 6. CAD; s/p STEMI (2021) s/p stents x 4 (RCA+LAD) on BASA daily plus prn SL NTG -Hold baby aspirin but give sublingual nitroglycerin as needed if chest pain develops. 7. Overweight; with BMI of 29.9 this admission plus fatty liver disease adding to the burden of disease outlined from #1 - #6 - Weight loss will be recommended. Check TSH. 8. History of EtOH cirrhosis and former tobacco use-no leg edema. No pedal edema. Abdominal swelling, fat abdomen possible small ascites. Follow-up in GI office 9. Essential hypertension; carvedilol and amlodipine - Hold scheduled antihypertensives in light of #1. 10. Hyperlipidemia; on atorvastatin plus ezetimibe - Hold oral medications until patient cleared for oral intake by GI. 11. Other comorbidities include anxiety and depression, chronic neuropathy on gabapentin twice daily, gout on allopurinol and chronic degenerative arthritis: Home medication reconciliation done. DVT prophylaxis: Bilateral SCDs. Pharmacological prophylaxis contraindicated. Laboratory Results 01/23/25 20:21: WBC 5.4, RBC 2.92 L, Hgb 10.5 L, Hct 31.0 L, MCV 106.2 H, MCH 36.0 H, MCHC 33.9, RDW Std Deviation 53.4 H, RDW Coeff of Dorie 13.8, Plt Count 167, MPV 9.5, Immature Gran % (Auto) 0.700, Neut % (Auto) 58.3, Lymph % (Auto) 16.0 L, Eaton % (Auto) 13.7 H, Eos % (Auto) 10.6 H, Baso % (Auto) 0.7, Absolute Neuts (auto) 3.1, Absolute Lymphs (auto) 0.86, Nucleated RBC % 0, Sodium 140, Potassium 3.8, Chloride 107, Carbon Dioxide 19.9 L, Anion Gap 13, BUN 12, Creatinine 0.82, Estim Creat Clear Calc 91.26, Est GFR (MDRD) Non-Af 92, BUN/Creatinine Ratio 15.1, Glucose 100 H, Hemoglobin A1c 5.5, Calcium 9.0, Magnesium 2.1, Iron 91, TIBC 270, Iron Saturation 34.0, Unsaturated IBC 179 L, Ferritin 101, Total Bilirubin 0.74, AST 35, ALT 30, Alkaline Phosphatase 103, Total Protein 6.6, Albumin 3.8, Globulin 2.9, Albumin/Globulin Ratio 1.3, Lipase 39, Vitamin B12 1003 H 01/23/25 21:09: Urine Color Straw, Urine Clarity Clear, Urine pH 6.0, Ur Specific [place] 1.015, Urine Protein Negative, Urine Glucose (UA) Normal, Urine Ketones Negative, Urine Occult Blood Negative, Urine Nitrite Negative, Urine Bilirubin Negative, Urine Urobilinogen Normal, Ur Leukocyte Esterase 100 H, Urine RBC 0-5 SEEN, Urine WBC 10-25 SEEN, Ur Squamous Epith Cells 0-5 SEEN, Urine Bacteria 0 SEEN, Urine Mucus 0 SEEN 01/23/25 21:40: Blood Type O POSITIVE, Antibody Screen NEGATIVE 01/24/25 04:04: WBC 4.5, RBC 2.69 L, Hgb 9.9 L, Hct 28.4 L, MCV 105.6 H, MCH 36.8 H, MCHC 34.9, RDW Std Deviation 52.3 H, RDW Coeff of Dorie 14.0, Plt Count 144 L, MPV 9.6, Immature Gran % (Auto) 0.400, Neut % (Auto) 60.1, Lymph % (Auto) 16.3 L, Eaton % (Auto) 12.8 H, Eos % (Auto) 10.2 H, Baso % (Auto) 0.2, Absolute Neuts (auto) 2.7, Absolute Lymphs (auto) 0.74 L, Nucleated RBC % 0, Sodium 141, Potassium 3.5, Chloride 109 H, Carbon Dioxide 22.5, Anion Gap 9, BUN 11, Creatinine 0.68 L, Estim Creat Clear Calc 93.09, Est GFR (MDRD) Non-Af 98, BUN/Creatinine Ratio 15.8, Glucose 90, Calcium 8.5, Phosphorus 2.9, Total Bilirubin 0.63, AST 33, ALT 24, Alkaline Phosphatase 93, Total Protein 6.0, Albumin 3.5, Globulin 2.5, Albumin/Globulin Ratio 1.4, Triglycerides 106, Cholesterol 120, LDL Cholesterol, Calc 62, VLDL Cholesterol 21, HDL Cholesterol 37 L, Cholesterol/HDL Ratio 3.25, Serum Folate 23.30, TSH 1.920 01/24/25 08:55: PT 13.4, INR 1.0 Charges/Coding Visit Charges Inpatient E&M: [id number] Subs Hosp L2
[2025-01-24 08:48] LABS: Cholesterol 120 mg/dL (<=200); Low Density Lipoprotein Calc. 62 mg/dL; Triglycerides 106 mg/dL; Very Low Density Lipoprotein 21 mg/dL (5-40); cholesterol:hdl ratio screen 3.25
[2025-01-24 09:12] LABS: Prothrombin Time (Protime)PT. 13.4 SECONDS (11.7-14.9)
[2025-01-24 09:19] VITALS: BP 149/106; PULSE 69; RESP 17; TEMP 36.6; O2SAT 98
[2025-01-24] MEDS: Potassium Chloride Oral Tablet 20 MEQ 40 MEQ PO ×2 (09:26→17:16)
[2025-01-24] MEDS: Sodium Ferric Gluconat/Sucrose 250 MG in 0.9% Normal Saline (250mL Bag) 250 ML 135 MG IV (12:11)
[2025-01-24 14:48] VITALS: PULSE 67
[2025-01-24 15:04] LABS: Hematocrit 31.9 % (40-54); Hemoglobin 11.1 g/dL (13.0-16.5)
[2025-01-24 15:29] VITALS: BP 140/80; PULSE 62; RESP 17; TEMP 36.6; O2SAT 98
[2025-01-24 20:10] VITALS: BP 134/111; PULSE 68; RESP 18; TEMP 35.6; O2SAT 99
[2025-01-24 21:17] LABS: Hematocrit 32.8 % (40-54); Hemoglobin 11.1 g/dL (13.0-16.5)
[2025-01-25 03:48] VITALS: BMI 30.5
[2025-01-25 05:50] VITALS: BP 120/68; PULSE 59; RESP 16; TEMP 35.5; O2SAT 93
[2025-01-25 06:36] LABS: Hematocrit 31.7 % (40-54); Hemoglobin 10.5 g/dL (13.0-16.5); Immature Granulocytes Count 0.030 X10^3/uL (0.0-0.0); Mean Corp Hgb Conc 33.1 g/dL (32-36); Mean Corpuscular Volume 108.6 fL (80-94); Mean Platelet Vol. 9.9 fl (6.2-12.0); NRBC Flagged by Analyzer 0 % (0-5); Platelet Count 178 K/mm3 (150-450); RBC Distribution Width CV 14.4 % (11.6-14.6); RBC Distribution Width SD 56.2 fl (35.1-43.9); Red Blood Count 2.92 M/mm3 (4.6-6.2); White Blood Count 5.5 K/mm3 (4.4-11.0)
[2025-01-25 06:58] LABS: Anion Gap 8 (5-15); BUN 6 mg/dL (4-19); BUN/Creat Ratio 8.0 RATIO (10-20); Calcium,Total 8.5 mg/dL (7.6-11.0); Carbon Dioxide 22.6 mmol/L (21.0-32.0); Chloride 111 mmol/L (98-108); Estimated Creatinine Clearance 94.42 ml/min (50-250); Glucose 93 mg/dL (70-99); Potassium 3.9 mmol/L (3.3-5.1)
[2025-01-25 08:23] VITALS: BP 138/85; PULSE 68; RESP 14; TEMP 36.9; O2SAT 95
[2025-01-25] MEDS: Potassium Chloride Oral Tablet 20 MEQ 40 MEQ PO (09:04)
[2025-01-25] MEDS: Pantoprazole Sodium 40 MG in 0.9% Normal Saline (100mL MB+) 100 ML 300 MG IV (09:06)
--- NOTE | 2025-01-25 09:17 | DCINST_ITS ---
Discharge Instructions Diet Discharge Diet: Soft diet (Soft diet for 3 days) DC O2, CPAP, BIPAP needs Home O2 Discharge instructions: No Dressing / Incision Discharge Activity: Return to Normal Activity Weight Bearing Status: Weight bearing as tolerated Dressing / Incision Call your doctor if you observe: Fever of 101 or Higher, Coldness, Increased Pain, Numbness or Tingling, Change in Color, Inability to urinate, Inability to have a bowel movement, Shortness of breath, Dizziness, Fainting spells, Swelling in the ankles, Chest pain, Prolonged hiccupping, Increased palpitations (irregular heartbeat) and Calf discomfort Follow Up Care When: IN 2 WEEKS Test Results: Test results from this visit will be discussed in further detail at your follow- up appointment, if applicable. Discharge Plan Admission Admit Date/Time: 01/23/25 22:37 Primary Reason for Your Visit: Acute lower GI bleed Attending Provider: Shubham Blanco Primary Care Provider: Valeriano Beasley Consulting Providers: Se Hampton Instructions Additional Instructions / Restrictions: Advised to call GI office on 01/27/2025 to schedule outpatient colonoscopy with Dr. Chacon for lower GI bleed Discharge Orders/Prescriptions Prescriptions: New ferrous sulfate 325 mg (65 mg iron) tablet 325 mg PO QODAY Qty: 30 2RF pantoprazole [Protonix] 40 mg tablet,delayed release (DR/EC) 40 mg PO DAILY 30 Days Qty: 30 2RF Continued cholecalciferol (vitamin D3) 125 mcg (5,000 unit) capsule 125 mcg PO DAILY vitamin B complex [B Complex-Vitamin B12] Tablet 1 tab PO DAILY omega 9-aaf-psp-fish oil 100-400-1,000 mg capsule 1 cap PO DAILY PRN (Reason: supplement) isosorbide mononitrate 30 mg tablet extended release 24 hr 30 mg PO QAM gabapentin 300 mg capsule 600 mg PO BID carvedilol 12.5 mg tablet 12.5 mg PO BID amlodipine 5 mg tablet 5 mg PO QDAY doxepin 25 mg capsule 25 mg PO QHS atorvastatin 80 mg Tablet 80 mg PO QHS allopurinol 100 mg Tablet 100 mg PO DAILY nitroglycerin 0.4 mg tablet, sublingual 0.4 mg sublingual UD PRN (Reason: Chest Pain) Patient Comments: PLACE 1 TABLET UNDER TONGUE EVERY 5 MINS, UP TO 3 DOSES NEEDED FOR CHEST PAIN Rx Instructions: PLACE 1 TABLET UNDER TONGUE EVERY 5 MINS, UP TO 3 DOSES NEEDED FOR CHEST PAIN ezetimibe 10 mg tablet 10 mg PO QHS ascorbic acid (vitamin C) 500 mg Tablet 1,000 mg PO BIDCM 30 Days Qty: 120 0RF Rx Instructions: Take with iron tablets epinephrine [EpiPen] 0.3 mg/0.3 mL auto-injector 0.3 mg IM X1 PRN (Reason: anaphylaxis/angioedema) Qty: 1 0RF Rx Instructions: for 2 doses cetirizine [24Hour Allergy] 10 mg tablet 10 mg PO DAILY PRN (Reason: allergy symptoms) Held aspirin 81 mg capsule 81 mg PO DAILY Hold Instructions: Hold for 1 week until sees PCP. Referrals / Follow Up: Valeriano Beasley MD [Primary Care Provider] - Daphne Ulloa PA [Med Staff - Adv Practice Prof] - Within 2 Weeks (To schedule colonoscopy with Dr. Chacon) Disposition Disposition (needs filled in before D/C Order can be placed): Home, Self Care
--- NOTE | 2025-01-25 09:26 | DS.PCM_ITS ---
Providers Date of Admission: 01/23/25 Date of Discharge: 01/25/25 Primary Care Physician: Dr. Valeriano Beasley MD Consultations 01/23/25 23:00 Consult: Gastroenterology Routine Consulting Provider: [facility] Reason for Consult: LGIB with ABLA. EMERGENT Consult: No MD Notified: Yes Date Notified: 01/23/25 Time Notified: 22:39 Method of Notification: ED Physician Initiated Reason For Visit: LGIB WITH ABLA Diagnosis Discharge Diagnosis (1) Acute lower gastrointestinal bleeding: Status: Acute Code(s): K92.2 - Gastrointestinal hemorrhage, unspecified (2) ABLA (acute blood loss anemia): Status: Acute Code(s): D62 - Acute posthemorrhagic anemia (3) Adverse drug reaction: Status: Acute Code(s): T50.905A - Adverse effect of unspecified drugs, medicaments and biological substances, initial encounter Qualifiers: Encounter type: initial encounter Qualified Code(s): T50.905A - Adverse effect of unspecified drugs, medicaments and biological substances, initial encounter (4) History of GI diverticular bleed: Status: Acute Code(s): Z87.19 - Personal history of other diseases of the digestive system (5) Acute cystitis without hematuria: Status: Acute Code(s): N30.00 - Acute cystitis without hematuria (6) Overweight (BMI 25.0-29.9): Status: Acute Code(s): E66.3 - Overweight Plan 74-year-old gentleman admitted with a dark red to maroon-colored stool x 3-day before yesterday. No abdominal pain. Patient had total 4 episodes of bright red tomorrow in color blood without stool since Monday night. Last bleeding was at 3 AM on 01/22. No abdominal pain. 1. Acute anemia of blood loss due to acute lower GI bleed suspected due to recurrent diverticular bleed: Patient is being admitted in PCU. Hemoglobin of 10.5 g/dL present on admission (down from 13.5 g/dL on December 30, 2024) with Macrocytosis of 106.2 fL present on admission. Repeat H&H in the morning 9.9/28% shows 2 g decreased from baseline therefore acute anemia of blood loss. IV PPI 40 mg once daily as it seems lower GI bleed. Clear liquid diet advance to full liquid. H&H Q6 hourly. - Admit to PCU. Keep n.p.o. except for ice chips, sips and medications. Start pantoprazole 40 mg IV twice daily. IV iron infusion ordered. Continue vitamin C. On oral ferrous sulfate at home There is no GI on-call this weekend. This was communicated to the patient. Previous colonoscopy in August 2022 for lower GI bleed at that time: Impression: - Non-bleeding internal hemorrhoids. - Diverticulosis in the recto-sigmoid colon, in the sigmoid colon, in the descending colon, at the splenic flexure and in the transverse colon. Injected. - Two 1 to 2 mm polyps in the sigmoid colon and in the cecum, removed using lift and cut and a hot snare. Resected and retrieved. Treated with argon plasma coagulation (APC). - Two bleeding colonic angiodysplastic lesions. Treated with argon plasma coagulation (APC). 01/25: Serial H&H shows that GI bleeding has stabilized. H&H dropped but dropped to 9.9 then went up 11.1 latest 10.5 g%. Patient has last bleeding on 01/22 at 3 AM, more than 72 hours. Patient ordered 1 more IV infusion and then can discharged on Protonix 40 mg daily. Advised to call GI office on 01/27/2025 to schedule outpatient colonoscopy with Dr. Chacon. Follow-up with Daphne flores of in 2 weeks. 2. Acute GI blood probably worsened by baby aspirin- Hold aspirin. 4. UA positive for Acute Cystitis without hematuria: UA negative of nitrite, LE 100, WBC 10-25 cells, RBC 0-5 cells, squamous epithelial 0-5 cells. 0 bacteria. Patient denies acute urinary tract symptoms including dysuria. Start IV ceftriaxone and await culture and sensitivity data. Urine culture ordered. 5. Recent admission here from December 27, 2024 to December 30, 2024 for treatment of acute respiratory failure due to recurrent angioedema, requiring intubation: Patient was not on losartan during December admission, because he had edema from losartan in the past therefore has been discontinued. Last thought to rule out hydrated etiology. Functional C1 esterase was done and it is 102% therefore was ruled out. 6. CAD; s/p STEMI (2021) s/p stents x 4 (RCA+LAD) on BASA daily plus prn SL NTG -Hold baby aspirin but give sublingual nitroglycerin as needed if chest pain develops. 7. Overweight; with BMI of 29.9 this admission plus fatty liver disease adding to the burden of disease outlined from #1 - #6 - Weight loss will be recommended. Check TSH. 8. History of EtOH cirrhosis and former tobacco use-no leg edema. No pedal edema. Abdominal swelling, fat abdomen possible small ascites. Follow-up in GI office 01/25: Follow-up as scheduled for stenosis 9. Essential hypertension; carvedilol and amlodipine - Hold scheduled antihypertensives in light of #1. 10. Hyperlipidemia; on atorvastatin plus ezetimibe - Hold oral medications until patient cleared for oral intake by GI. 11. Other comorbidities include anxiety and depression, chronic neuropathy on gabapentin twice daily, gout on allopurinol and chronic degenerative arthritis: Home medication reconciliation done. DVT prophylaxis: Bilateral SCDs. Pharmacological prophylaxis contraindicated. Laboratory Results 01/23/25 20:21: WBC 5.4, RBC 2.92 L, Hgb 10.5 L, Hct 31.0 L, MCV 106.2 H, MCH 36.0 H, MCHC 33.9, RDW Std Deviation 53.4 H, RDW Coeff of Dorie 13.8, Plt Count 167, MPV 9.5, Immature Gran % (Auto) 0.700, Neut % (Auto) 58.3, Lymph % (Auto) 16.0 L, Bullitt % (Auto) 13.7 H, Eos % (Auto) 10.6 H, Baso % (Auto) 0.7, Absolute Neuts (auto) 3.1, Absolute Lymphs (auto) 0.86, Nucleated RBC % 0, Sodium 140, Potassium 3.8, Chloride 107, Carbon Dioxide 19.9 L, Anion Gap 13, BUN 12, Creatinine 0.82, Estim Creat Clear Calc 91.26, Est GFR (MDRD) Non-Af 92, BUN/Creatinine Ratio 15.1, Glucose 100 H, Hemoglobin A1c 5.5, Calcium 9.0, Magnesium 2.1, Iron 91, TIBC 270, Iron Saturation 34.0, Unsaturated IBC 179 L, Ferritin 101, Total Bilirubin 0.74, AST 35, ALT 30, Alkaline Phosphatase 103, Total Protein 6.6, Albumin 3.8, Globulin 2.9, Albumin/Globulin Ratio 1.3, Lipase 39, Vitamin B12 1003 H 01/23/25 21:09: Urine Color Straw, Urine Clarity Clear, Urine pH 6.0, Ur Specific Harmony 1.015, Urine Protein Negative, Urine Glucose (UA) Normal, Urine Ketones Negative, Urine Occult Blood Negative, Urine Nitrite Negative, Urine Bilirubin Negative, Urine Urobilinogen Normal, Ur Leukocyte Esterase 100 H, Urine RBC 0-5 SEEN, Urine WBC 10-25 SEEN, Ur Squamous Epith Cells 0-5 SEEN, Urine Bacteria 0 SEEN, Urine Mucus 0 SEEN 01/23/25 21:40: Blood Type O POSITIVE, Antibody Screen NEGATIVE 01/24/25 04:04: WBC 4.5, RBC 2.69 L, Hgb 9.9 L, Hct 28.4 L, MCV 105.6 H, MCH 36.8 H, MCHC 34.9, RDW Std Deviation 52.3 H, RDW Coeff of Dorie 14.0, Plt Count 144 L, MPV 9.6, Immature Gran % (Auto) 0.400, Neut % (Auto) 60.1, Lymph % (Auto) 16.3 L, Bullitt % (Auto) 12.8 H, Eos % (Auto) 10.2 H, Baso % (Auto) 0.2, Absolute Neuts (auto) 2.7, Absolute Lymphs (auto) 0.74 L, Nucleated RBC % 0, Sodium 141, Potassium 3.5, Chloride 109 H, Carbon Dioxide 22.5, Anion Gap 9, BUN 11, C reatinine 0.68 L, Estim Creat Clear Calc 93.09, Est GFR (MDRD) Non-Af 98, BUN/Creatinine Ratio 15.8, Glucose 90, Calcium 8.5, Phosphorus 2.9, Total Bilirubin 0.63, AST 33, ALT 24, Alkaline Phosphatase 93, Total Protein 6.0, Albumin 3.5, Globulin 2.5, Albumin/Globulin Ratio 1.4, Triglycerides 106, Cholesterol 120, LDL Cholesterol, Calc 62, VLDL Cholesterol 21, HDL Cholesterol 37 L, Cholesterol/HDL Ratio 3.25, Serum Folate 23.30, TSH 1.920 01/24/25 08:55: PT 13.4, INR 1.0 Medications at Discharge Home Medications allopurinol 100 mg tablet 100 mg PO DAILY GOUT 03/25/22 atorvastatin 80 mg tablet 80 mg PO QHS CHOLESTEOL 03/25/22 ezetimibe 10 mg tablet 10 mg PO QHS CHOLESTEROL 09/02/22 nitroglycerin 0.4 mg sublingual tablet 0.4 mg sublingual UD PRN Chest Pain 09/02/22 ascorbic acid (vitamin C) 500 mg tablet 1,000 mg (2 x 500 mg) PO BIDCM 30 days #120 tabs 09/09/22 cholecalciferol (vitamin D3) 125 mcg (5,000 unit) capsule 125 mcg PO DAILY supplement 09/01/23 omega 3-dha 100 mg-epa 400 mg-fish oil 1,000 mg capsule 1 cap PO DAILY PRN supplement 09/01/23 vitamin B complex (B Complex-Vitamin B12 tablet) 1 tab PO DAILY feet 09/01/23 isosorbide mononitrate 30 mg tablet,extended release 24 hr 30 mg PO QAM bp 04/15/24 amlodipine 5 mg tablet 5 mg PO QDAY bp 09/19/24 carvedilol 12.5 mg tablet 12.5 mg PO BID bp 09/19/24 gabapentin 300 mg capsule 600 mg PO BID neuropathy 09/19/24 doxepin 25 mg capsule 25 mg PO QHS mood 11/05/24 aspirin 81 mg capsule 81 mg PO DAILY heart 12/29/24 Held on 01/25/25. Instructions: Hold for 1 week until sees PCP. epinephrine 0.3 mg/0.3 mL injection, auto-injector (EpiPen) 0.3 mg (0.3 mL) IM X1 PRN anaphylaxis/angioedema #1 ea 12/30/24 cetirizine 10 mg tablet (24Hour Allergy) 10 mg PO DAILY PRN allergy symptoms 01/23/25 ferrous sulfate 325 mg (65 mg iron) tablet 325 mg PO QODAY #30 tabs 01/25/25 pantoprazole 40 mg tablet,delayed release (Protonix) 40 mg PO DAILY 1 month #30 tabs 01/25/25 Physical Exam Narrative Seen and examined. Vitals good. No fever. No further GI bleeding episode since 01/22. Tolerated clear full liquid. Diet advanced to soft diet Physical General: Alert, Oriented x3, Cooperative HEENT: Atraumatic, PERRLA, EOMI, Normocephalic. Oral: No Gingival or Mucosal Lesions/ Ulcerations Neck: Supple, No JVD, Negative Carotid Bruits Chest wall/Lungs: Air entry diminished in bilateral lung bases. No crepitation/rhonchi Cardiovascular: Regular rate and rhythm, Normal S1,S2, systolic murmur Abdomen: Bowel Sounds Present, Soft, Non Tender, mild swelling/mild ascites : No dysuria. No renal angle tenderness. No suprapubic tenderness. Extremities: No to minimal pedal edema, Capillary Refill Less than 3 Seconds Skin: No rashes, No breakdown Musculoskeletal: No Tenderness to Palpation of Joints or Extremities Neurological: Cranial nerves II-XII grossly intact, DTR 2+/4. No acute focal neurological deficit. Psych/Mental Status: Flat affect. Weight / BMI Weight Weight: 212 lb 11.937 oz Body Mass Index (BMI) 30.5 ABG / Lab / Microbiology Data 01/25/25 05:39 01/25/25 05:39 Laboratory: Laboratory Results - last 24 hr 01/24/25 14:53: Hgb 11.1 L, Hct 31.9 L 01/24/25 21:08: Hgb 11.1 L, Hct 32.8 L 01/25/25 05:39: WBC 5.5, RBC 2.92 L, Hgb 10.5 L, Hct 31.7 L, MCV 108.6 H, MCH 36.0 H, MCHC 33.1 D, RDW Std Deviation 56.2 H, RDW Coeff of Dorie 14.4, Plt Count 178, MPV 9.9, Immature Gran % (Auto) 0.500, Neut % (Auto) 62.6, Lymph % (Auto) 13.0 L, Bullitt % (Auto) 14.3 H, Eos % (Auto) 8.9 H, Baso % (Auto) 0.7, Absolute Neuts (auto) 3.5, Absolute Lymphs (auto) 0.72 L, Nucleated RBC % 0, Sodium 142, Potassium 3.9, Chloride 111 H, Carbon Dioxide 22.6, Anion Gap 8, BUN 6, Creatinine 0.70, Estim Creat Clear Calc 94.42, Est GFR (MDRD) Non-Af 97, B UN/Creatinine Ratio 8.0 L, Glucose 93, Calcium 8.5, Phosphorus 2.8 Microbiology: Microbiology 01/24/25 11:30 Stool Stool Occult Blood (YOVANY) - Final Occult Blood Positive D/C Instructions Discharge Diet: Soft diet (Soft diet for 3 days) Weight Bearing Status: Weight bearing as tolerated Call your doctor if you observe: Fever of 101 or Higher, Coldness, Increased Pain, Numbness or Tingling, Change in Color, Inability to urinate, Inability to have a bowel movement, Shortness of breath, Dizziness, Fainting spells, Swelling in the ankles, Chest pain, Prolonged hiccupping, Increased palpitations (irregular heartbeat) and Calf discomfort DC O2, CPAP, BIPAP Needs Home O2 Discharge instructions: No When: IN 2 WEEKS Meaningful Use Info Meaningful Use Meaningful Use Diagnoses (Choose all that apply): None applicable Ischemic Stroke Statin Dosing Therapy Reference: STATIN DOSE THERAPY REFERENCE: * Patients > 75 years receive moderate or high dose statin therapy. * Patients 75 years or YOUNGER should receive HIGH intensity statin dose unless contraindicated. You will be required to document reason for non-treatment if statin daily dose does not meet guidelines. HIGH DOSE STATIN THERAPY DAILY Atorvastatin > than or = to 40 mg Rosuvastatin > than or = to 20 mg Amlodipine + Atorvastatin > than or = to 2.5/40 mg Ezetimibe + Simvastatin 10/80 mg Simvastatin 80mg Discharge Plan Admission Admit Date/Time: 01/23/25 22:37 Primary Reason for Your Visit: Acute lower GI bleed Attending Provider: Shubham Blanco Primary Care Provider: Valeriano Beasley Consulting Providers: Se Hampton Instructions Additional Instructions / Restrictions: Advised to call GI office on 01/27/2025 to schedule outpatient colonoscopy with Dr. Chacon for lower GI bleed Discharge Orders/Prescriptions Prescriptions: New ferrous sulfate 325 mg (65 mg iron) tablet 325 mg PO QODAY Qty: 30 2RF pantoprazole [Protonix] 40 mg tablet,delayed release (DR/EC) 40 mg PO DAILY 30 Days Qty: 30 2RF Continued cholecalciferol (vitamin D3) 125 mcg (5,000 unit) capsule 125 mcg PO DAILY vitamin B complex [B Complex-Vitamin B12] Tablet 1 tab PO DAILY omega 7-fki-kuc-fish oil 100-400-1,000 mg capsule 1 cap PO DAILY PRN (Reason: supplement) isosorbide mononitrate 30 mg tablet extended release 24 hr 30 mg PO QAM gabapentin 300 mg capsule 600 mg PO BID carvedilol 12.5 mg tablet 12.5 mg PO BID amlodipine 5 mg tablet 5 mg PO QDAY doxepin 25 mg capsule 25 mg PO QHS atorvastatin 80 mg Tablet 80 mg PO QHS allopurinol 100 mg Tablet 100 mg PO DAILY nitroglycerin 0.4 mg tablet, sublingual 0.4 mg sublingual UD PRN (Reason: Chest Pain) Patient Comments: PLACE 1 TABLET UNDER TONGUE EVERY 5 MINS, UP TO 3 DOSES NEEDED FOR CHEST PAIN Rx Instructions: PLACE 1 TABLET UNDER TONGUE EVERY 5 MINS, UP TO 3 DOSES NEEDED FOR CHEST PAIN ezetimibe 10 mg tablet 10 mg PO QHS ascorbic acid (vitamin C) 500 mg Tablet 1,000 mg PO BIDCM 30 Days Qty: 120 0RF Rx Instructions: Take with iron tablets epinephrine [EpiPen] 0.3 mg/0.3 mL auto-injector 0.3 mg IM X1 PRN (Reason: anaphylaxis/angioedema) Qty: 1 0RF Rx Instructions: for 2 doses cetirizine [24Hour Allergy] 10 mg tablet 10 mg PO DAILY PRN (Reason: allergy symptoms) Held aspirin 81 mg capsule 81 mg PO DAILY Hold Instructions: Hold for 1 week until sees PCP. Referrals / Follow Up: Valeriano Beasley MD [Primary Care Provider] - Daphne Ulloa PA [Med Staff - Adv Practice Prof] - Within 2 Weeks (To schedule colonoscopy with Dr. Chacon) Disposition Disposition (needs filled in before D/C Order can be placed): Home, Self Care Charges/Coding Addendum Addendum: Microbiology Past 72 Hours 01/24/25 11:30 Stool Stool Occult Blood (YOVANY) - Final Occult Blood Positive Laboratory Results 01/24/25 14:53: Hgb 11.1 L, Hct 31.9 L 01/24/25 21:08: Hgb 11.1 L, Hct 32.8 L 01/25/25 05:39: WBC 5.5, RBC 2.92 L, Hgb 10.5 L, Hct 31.7 L, MCV 108.6 H, MCH 36.0 H, MCHC 33.1 D, RDW Std Deviation 56.2 H, RDW Coeff of Dorie 14.4, Plt Count 178, MPV 9.9, Immature Gran % (Auto) 0.500, Neut % (Auto) 62.6, Lymph % (Auto) 13.0 L, Bullitt % (Auto) 14.3 H, Eos % (Auto) 8.9 H, Baso % (Auto) 0.7, Absolute Neuts (auto) 3.5, Absolute Lymphs (auto) 0.72 L, Nucleated RBC % 0, Sodium 142, Potassium 3.9, Chloride 111 H, Carbon Dioxide 22.6, Anion Gap 8, BUN 6, Creatinine 0.70, Estim Creat Clear Calc 94.42, Est GFR (MDRD) Non-Af 97, B UN/Creatinine Ratio 8.0 L, Glucose 93, Calcium 8.5, Phosphorus 2.8 Visit Charges Inpatient E&M: 99973 Disch Hosp >30min
[2025-01-25] MEDS: Sodium Ferric Gluconat/Sucrose 250 MG in 0.9% Normal Saline (250mL Bag) 250 ML 135 MG IV (10:56)
[2025-01-25] MEDS: Cholecalciferol (Vit D3) 125 MCG CAPSULE (5,000 UNITS) PO (10:57)
--- NOTE | 2025-01-25 10:59 | CASEMGMT ---
OLYA WALSH Readmission Note: presented to the emergency department at [facility] on 12/27/2024 with tongue and lip swelling. Pt required intubation and was admitted to ICU. Pt was given steroids and extubated the same day. Pt was sent home on 12/30/24 with EpiPen and steroids and was to follow up with lumber salvager. Pt reported back to ED 01/23/25 with LGIB suspected to be from a recurrent diverticular source with ABLA evidenced by hemoglobin of 10.5. RN CM into pt room, pt states he followed up with Dr. Beasley after previous DC. He is going to see the lumber salvager, but has not seen them yet. Pt states he has been taking all medications as prescribed. Pt states he is very active in the community and is ready to DC. Pt denies any DC needs at this time. Encouraged pt to follow up with PCP and Specialists after being DC'd.
== END 2025-01-25 13:52 | disposition home or self-care (01) | DRG 811 ==
LOC: ED 21:41 → PCU 23:12
PROVIDERS: Admitting Provider Internal Medicine; Emergency Provider Emergency Medicine; PCP Family Medicine; Visit Provider Internal Medicine
DX: D62 Acute posthemorrhagic anemia (principal); K57.31 Diverticulosis of large intestine without perforation or abscess with bleeding; N30.00 Acute cystitis without hematuria; I10 Essential (primary) hypertension; M19.90 Unspecified osteoarthritis, unspecified site; I25.10 Atherosclerotic heart disease of native coronary artery without angina pectoris; G62.9 Polyneuropathy, unspecified; J30.2 Other seasonal allergic rhinitis; F41.8 Other specified anxiety disorders; I25.2 Old myocardial infarction; E78.5 Hyperlipidemia, unspecified; M10.9 Gout, unspecified; E66.3 Overweight; T50.905A Adverse effect of unspecified drugs, medicaments and biological substances, initial encounter; Z68.29 Body mass index [BMI] 29.0-29.9, adult; Z95.5 Presence of coronary angioplasty implant and graft; Z79.82 Long term (current) use of aspirin; Z87.891 Personal history of nicotine dependence; Z79.899 Other long term (current) drug therapy
CPT/HCPCS: 36415; 80048; 80053; 80061; 81001; 82274; 82607; 82728; 82746; 83036; 83540; 83550; 83690; 83735; 84100; 84443; 85014; 85018; 85025; 85610; 86850; 86900; 86901; 87086; 97161; 99283; A4216; J2916

== ENCOUNTER → 2025-02-07 | Outpatient (CLI) | payer MEDICARE, SELFPAY ==
[2023-08-23 15:18] VITALS: BMI 28.3
[2025-02-07 11:32] LABS: Hematocrit 33.4 % (40-54); Hemoglobin 11.2 g/dL (13.0-16.5); Immature Granulocytes Count 0.060 X10^3/uL (0.0-0.0); Mean Corp Hgb Conc 33.5 g/dL (32-36); Mean Corpuscular Volume 106.0 fL (80-94); Mean Platelet Vol. 9.9 fl (6.2-12.0); NRBC Flagged by Analyzer 0 % (0-5); Platelet Count 236 K/mm3 (150-450); RBC Distribution Width CV 14.0 % (11.6-14.6); RBC Distribution Width SD 54.8 fl (35.1-43.9); Red Blood Count 3.15 M/mm3 (4.6-6.2); White Blood Count 7.7 K/mm3 (4.4-11.0)
[2025-02-07 12:21] LABS: Ammonia 39.6 umol/L (16-60)
[2025-02-07 12:23] LABS: AST(SGOT) 35 U/L (<=37); Alanine Aminotransfer ALT/SGPT 26 U/L (<=46); Albumin, Serum 3.6 g/dL (3.4-4.8); Alkaline Phosphatase 125 U/L (40-129); Anion Gap 12 (5-15); BUN 11 mg/dL (4-19); BUN/Creat Ratio 13.6 RATIO (10-20); CRP 18.70 mg/L (0.0-3.0); Calcium,Total 9.8 mg/dL (7.6-11.0); Carbon Dioxide 22.5 mmol/L (21.0-32.0); Chloride 105 mmol/L (98-108); Globulin 3.0 g/dL (2.2-4.2); Glucose 144 mg/dL (70-99); Potassium 4.1 mmol/L (3.3-5.1)
== END | disposition home or self-care (01) ==
LOC: LAB 11:03
PROVIDERS: PCP Family Medicine; Referring Provider Internal Medicine; Visit Provider Internal Medicine
DX: D64.9 Anemia, unspecified (principal); Z87.19 Personal history of other diseases of the digestive system
CPT/HCPCS: 36415; 80053; 82140; 85025; 86140

== ENCOUNTER → 2025-02-25 | Outpatient (CLI) | payer MEDICARE, SELFPAY ==
[2023-08-23 15:18] VITALS: BMI 28.3
--- NOTE | 2025-02-25 15:42 | RAD_ITS ---
PROCEDURE: ABDOMEN SINGLE VIEW 02/25/2025 REASON FOR EXAM: CALCULUS OF KIDNEY TECHNIQUE: ABDOMEN SINGLE VIEW COMPARISON: Radiographs on 09/23/2024. CT scan on 09/06/2024. FINDINGS: Bilateral renal stones are noted with the largest measuring 9 mm on the right side. Normal visualized lung bases. There is an unremarkable bowel gas pattern. There is no demonstrated free abdominal air. Normal visualized liver. Normal visualized spleen. Normal visualized kidneys. The soft tissue structures of the pelvis are unremarkable. Moderate diffuse spondylosis. RAD/Abdomen Single View IMPRESSION: Bilateral nephrolithiasis. [facility]
[2025-02-25 17:10] LABS: PSA,Total - Annual Screen 3.95 ng/mL (0.02-4.00)
== END | disposition home or self-care (01) ==
LOC: LAB 15:32
PROVIDERS: PCP Family Medicine; Referring Provider Nurse Practitioner; Visit Provider Nurse Practitioner
DX: N20.0 Calculus of kidney (principal); Z12.5 Encounter for screening for malignant neoplasm of prostate
CPT/HCPCS: 36415; 74018; 84153; G0103

== ENCOUNTER → 2025-03-10 | Outpatient (CLI) | payer MEDICARE, SELFPAY ==
[2023-08-23 15:18] VITALS: BMI 28.3
--- NOTE | 2025-03-10 09:47 | US_ITS ---
PROCEDURE: ABD LIMITED W/ ELASTOGRAPHY REASON FOR EXAM: CIRRHOSIS, R/O ASCITES COMPARISON: Prior study dated May 14, 2024. TECHNIQUE: Right upper quadrant abdominal ultrasound. Alisha ElastQ Imaging shear wave elastography for non-invasive assessment of liver tissue stiffness. Alisha EPIQ Elite. FINDINGS: LIVER: Size: Enlarged (hepatomegaly) Length: 19.9 cm Echotexture: Diffusely echogenic suggesting fatty infiltration Contour: Normal Lesions: None identified Elastography: EQI Med: 16.3 kPa EQI Med Zay: 2.31 m/s IQR/Med: 9.3 %* GALLBLADDER: No stones sludge wall thickening or tenderness. COMMON BILE DUCT: Normal measuring 3.6 mm . PANCREAS: Normal There is a 1.7 cm 1.6 cm 1.1 cm right renal cyst. There is also evidence of 2 nonobstructive intrarenal calculi. The larger measures 1.5 cm x 1.5 cm 0.7 cm. There is evidence of splenomegaly. The spleen measures 13.9 cm 6.4 cm 4.8 cm. There are calcified splenic granulomas. No right upper quadrant ascites. US/ABD Limited w/ Elastography IMPRESSION: SEVERE HEPATIC FIBROSIS / CIRRHOSIS Hepatomegaly. Right renal cyst and right intrarenal calculi. Splenomegaly. Reference Values: SRU <1.37 m/s (5.7kPa): No to mild fibrosis 1.37 m/s - 2.2 m/s: Moderate to severe fibrosis >2.2 m/s (15kPa): Significant fibrosis / cirrhosis METAVIR Score F2 or higher: 1.34 m/s (5.7kPa) F3 or higher: 1.55 m/s (7.3kPa) F4: 1.80 m/s (10kPa) * If the IQR/Med is >30%, the variance in the measurements is a large and the a ccuracy of the measurement may be in question. Reading Location: [id number]
[2025-03-10 11:21] LABS: Hematocrit 37.1 % (40-54); Hemoglobin 12.5 g/dL (13.0-16.5); Immature Granulocytes Count 0.020 X10^3/uL (0.0-0.0); Mean Corp Hgb Conc 33.7 g/dL (32-36); Mean Corpuscular Volume 105.7 fL (80-94); Mean Platelet Vol. 10.1 fl (6.2-12.0); NRBC Flagged by Analyzer 0 % (0-5); Platelet Count 180 K/mm3 (150-450); RBC Distribution Width CV 12.9 % (11.6-14.6); RBC Distribution Width SD 50.3 fl (35.1-43.9); Red Blood Count 3.51 M/mm3 (4.6-6.2); White Blood Count 6.4 K/mm3 (4.4-11.0)
[2025-03-10 11:34] LABS: Prothrombin Time (Protime)PT. 14.3 SECONDS (11.7-14.9)
[2025-03-10 12:14] LABS: AST(SGOT) 34 U/L (<=37); Alanine Aminotransfer ALT/SGPT 22 U/L (<=46); Albumin, Serum 3.9 g/dL (3.4-4.8); Alkaline Phosphatase 120 U/L (40-129); Anion Gap 10 (5-15); BUN 9 mg/dL (4-19); BUN/Creat Ratio 12.7 RATIO (10-20); Calcium,Total 9.6 mg/dL (7.6-11.0); Carbon Dioxide 25.7 mmol/L (21.0-32.0); Chloride 103 mmol/L (98-108); Ferritin 104 ng/mL (37-417); Globulin 2.8 g/dL (2.2-4.2); Glucose 115 mg/dL (70-99); Iron 93 ug/dL (65-175); Iron Binding Capacity,Total 268 ug/dL (250-450); Iron Binding Capacity,Unsat 175 ug/dL (228-428); Potassium 4.4 mmol/L (3.3-5.1); Vitamin B12 627 pg/mL (180-914)
== END | disposition home or self-care (01) ==
PROVIDERS: PCP Family Medicine; Referring Provider Internal Medicine; Visit Provider Internal Medicine
DX: K70.30 Alcoholic cirrhosis of liver without ascites (principal); I25.10 Atherosclerotic heart disease of native coronary artery without angina pectoris; I25.2 Old myocardial infarction; D64.9 Anemia, unspecified; N20.0 Calculus of kidney; R06.02 Shortness of breath; Z87.19 Personal history of other diseases of the digestive system
CPT/HCPCS: 36415; 76705; 76981; 80053; 82607; 82728; 83540; 83550; 85025; 85610

== ENCOUNTER 2025-03-20 05:44 | Day surgery (SDC) | payer MEDICARE, SELFPAY ==
[2023-08-23 15:18] VITALS: BMI 28.3
--- NOTE | 2025-03-18 15:58 | PAT.ANESEVAL ---
Pre-Assessment Diagnosis/Proposed Procedure Planned Operative Procedure(s): COLONOSCOPY- Anesthesia History Anesthesia History - verification lead: Anesthesia History - verification lead Hx Hospitalization Yes 03/18/25 11:59 Any Problems With Anesthesia No 03/18/25 11:59 Cholinesterase deficiency No 03/18/25 11:59 You/Your Family Experience No 03/18/25 11:59 fever (hyperthermia) with Relationship Recent Exposure to Contagious Disease Does patient have nerve No 03/18/25 11:59 stimulator Patient instructed to have device shut off --Does patient have Pacemaker or ICD? When Was Last Pacemaker Check QUESTION #4 FULL TEXT: You/Your Family Experience fever (hyperthermia) with Anesthesia Last Oral Intake Last Oral intake: Last Oral Intake NPO since Meds taken in AM with sips of water? Meds patient instructed to take am of surgery PONV PONV - verification lead: PONV - verification lead Female No 03/18/25 11:59 HX of Motion Sickness No 03/18/25 11:59 HX of N/V After Surgery No 03/18/25 11:59 Non-Smoker Yes 03/18/25 11:59 Duration of Surgery greater No 03/18/25 11:59 than 60 minutes Number of Risk Factors 1 03/18/25 11:59 PONV Score Low Risk 03/18/25 11:59 Height & Weight Height & Weight: Anesthesia: Height & Weight Height 5 ft 10 in 02/26/25 14:01 Respiratory Assessment Respiratory Assessment - verification lead: Respiratory Tract Infection Hx - verification lead Hx Respiratory Tract Infection No 03/18/25 11:59 STOP Sleep Apnea STOP Sleep Apnea - verification lead: STOP Sleep Apnea - verification lead Hx Hypertension Yes: CONTROLLED ON MED 03/18/25 11:59 Hx Sleep Apnea No 03/18/25 11:59 CPAP BIPAP Do you snore loudly (louder No 03/18/25 11:59 than talking or can be heard Do you often feel tired/ No 03/18/25 11:59 fatigued/ sleepy during daytime? Has anyone observed you stop No 03/18/25 11:59 breathing during sleep? STOP Results Negative 03/18/25 11:59 QUESTION #5 FULL TEXT : Do you snore loudly (louder than talking or can be heard through closed doors)? Tobacco Use History Tobacco Use History - verification lead: Tobacco Use History - verification lead Tobacco Use Smoking Status Former smoker 03/18/25 11:59 Hx Tobacco Use No 03/18/25 11:59 Years Smoking Packs Smoked per Day Smoking Cessation Date was No - quit smoking greater 03/18/25 11:59 within the last 15 years than 15 years ago Hx Smoking Cessation Date 07/24/71 03/18/25 11:59 Hx Smoking Cessation No 03/18/25 11:59 Counseling Hematologic Medial History Hematologic Hx - verification lead: Hematologic Medical Hx - jailer Hx of Blood Transfusion Yes 03/18/25 11:59 Hx of Transfusion in last 3 No 03/18/25 11:59 Months Date of Last Transfusion (if within last 3 months) Ever experience any problems No 03/18/25 11:59 with transfusion(s)? Specify any problems Hx of Preganancy in last 3 N/A 03/18/25 11:59 Months Nurse Filling Out Transfusion VCHRISTIN 03/18/25 11:59 & Questions: Date: 03/18/25 03/18/25 11:59 Time: 12:00 03/18/25 11:59 Patient unable to answer at this time (ie. confused, unrespo /Reproduction History /Reproductive History - verification lead: /Reproductive Hx- verification lead Hx Now No 03/18/25 11:59 Gestational Age (in weeks): EDC: Hx Hx Para Hx Section SAB No 03/18/25 11:59 [facility] Medical History (Updated 03/18/25 @ 11:58 by Kandace Strong) Wears glasses Alcohol use Kidney stones Fatty liver Excessive bleeding High cholesterol History of GI bleed History of diverticulitis Gastric reflux History of edema History of echocardiogram History of stress test Cardiology follow-up encounter High serum parathyroid hormone (PTH) Heart murmur Elevated alkaline phosphatase level Elevated PSA Diverticulosis AVM (arteriovenous malformation) of colon Vitamin D deficiency Gout Alcohol abuse Essential hypertension Chest pain Anxiety Depression Myocardial infarct Chest pain Acute blood loss anemia Bloody diarrhea Coronary artery disease Atherosclerotic heart disease of [place] coronary artery without angina pectoris ST elevation [place] (STEMI) (~11/29/21) Hyperlipidemia Hypertension Home Medications ?Medication ?Instructions ?Recorded ?Last Taken ?Type allopurinol 100 mg tablet 100 mg PO DAILY GOUT 03/25/22 01/23/25 08:20 History atorvastatin 80 mg tablet 80 mg PO QHS CHOLESTEOL 03/25/22 01/22/25 20:21 History ezetimibe 10 mg tablet 10 mg PO QHS CHOLESTEROL 09/02/22 01/22/25 23:22 History nitroglycerin 0.4 mg sublingual 0.4 mg sublingual UD PRN Chest Pain 09/02/22 Unknown History tablet cholecalciferol (vitamin D3) 125 125 mcg PO DAILY supplement 09/01/23 01/23/25 08:21 History mcg (5,000 unit) capsule omega 3-dha 100 mg-epa 400 mg-fish 1 cap PO DAILY supplement 09/01/23 01/23/25 08:24 History oil 1,000 mg capsule vitamin B complex (B 1 tab PO DAILY feet 09/01/23 01/23/25 08:24 History Complex-Vitamin B12 tablet) isosorbide mononitrate 30 mg 30 mg PO QAM bp 04/15/24 01/23/25 08:23 History tablet,extended release 24 hr amlodipine 5 mg tablet 5 mg PO QDAY bp 09/19/24 01/23/25 08:20 History Held on 02/26/25. Instructions: Order Changed carvedilol 12.5 mg tablet 12.5 mg PO BID bp 09/19/24 01/23/25 20:21 History gabapentin 300 mg capsule 600 mg PO BID neuropathy 09/19/24 01/23/25 23:21 History doxepin 25 mg capsule 25 mg PO QHS mood 11/05/24 Unknown History aspirin 81 mg capsule 81 mg PO DAILY heart 12/29/24 01/23/25 08:21 History epinephrine 0.3 mg/0.3 mL 0.3 mg (0.3 mL) IM X1 PRN 12/30/24 Unknown Rx injection, auto-injector (EpiPen) anaphylaxis/angioedema #1 ea peg 3350-sod [id number] See Rx Instructions PO .COMPLEX #2 01/29/25 Unknown Rx 178.7-7.3-0.5-1.12-0.9 gram oral mL soln (Suflave) ferrous sulfate 325 mg (65 mg 325 mg PO QODAY #30 tabs 02/26/25 Unknown Rx iron) tablet pantoprazole 40 mg tablet,delayed 40 mg PO DAILY 1 month #30 tabs 02/26/25 Unknown Rx release (Protonix) ascorbic acid (vitamin C) 1,000 mg 500 mg PO QDAY 03/18/25 Unknown History tablet diphenhydramine HCl 25 mg capsule 25 mg PO Q8H PRN allergic reaction 03/18/25 Unknown History (Aler-Cap) fexofenadine 180 mg tablet 180 mg PO DAILY 03/18/25 Unknown History (Adelita Allergy) multivitamin (Daily Multi-Vitamin 1 tab PO DAILY 03/18/25 Unknown History tablet) Allergy/AdvReac Type Severity Reaction Status Date / Time losartan Allergy Severe Angioedema Verified 03/18/25 11:41 hydrochlorothiazide Allergy Hives Verified 03/18/25 11:41 Family History Mother COPD (chronic obstructive pulmonary disease) Lung cancer Father Heart disease Hypertension Myocardial infarction age 53 following [place]. Surgical History (Updated 03/18/25 @ 11:58 by Kandace Strong) History of cardiac catheterization H/O colonoscopy S/P cataract extraction Presence of coronary angioplasty implant and graft (~11/29/21) Social History household members: none Smoking Status: Former smoker how long ago did patient quit smoking: Smoked from age 18, 1 ppd x 4 years and then quit. alcohol intake: current alcohol intake frequency: a few times a week Alcohol type: beer substance use type: does not use Audit: Pertinent Findings Pertinent Findings EKG Perinent findings: 12/27/2024. Sinus rhythm with first-degree AV block. Left axis deviation. Left bundle branch block. Stress test pertinent findings: 12/13/2023. EF of 48%. No evidence of significant ischemia. Prior apical myocardial infarction. Echo (EF%) pertinent findings: 09/28/2023. EF of 50%. PASP is 30 mmHg. No aortic stenosis noted. Heart catheterization pertinent findings: 09/06/2022. Diffuse three-vessel disease involving the distal LAD, a totally occluded left circumflex artery and diffuse disease of the right coronary artery. Medical therapy was recommended. EF of 50%. Consult pertinent findings: 11/05/2024. Price LAMBERT. 1. Atherosclerotic heart disease in [place] coronary artery without angina-most recent cardiac cath demonstrated diffuse disease in the LAD and RCA. And a totally occluded circumflex. Most recent stress test was negative for ischemia. Continue current meds and continue to monitor. 2. Hypertension?well-controlled. Recommendation Anesthesia Recommendation Anesthesia recommendation: OPTIMIZED for anesthesia
[2025-03-20] VITALS (9 sets, daily range): BP systolic 80–114; BP diastolic 61–73; PULSE 68–71; RESP 16; TEMP 36.4–36.5; O2SAT 91–94; BMI 30.8
--- OUTSIDE RECORDS SUMMARY | 2025-03-20 05:51 | XMS RPT_ITS | CCD ---
Author Organization [facility] [employer] Care Team Providers Care Setter Out Name Role Phone VALERIANO BEASLEY MD Primary Care Physician Valeriano Beasley MD Primary Care Provider Valeriano [...] Other Provider FriendDr. Leo Attending Provider Dr. Obdulio Crespo Referring Provider Dr. Lukas Cuevas Attending Provider Dr. Jael Ramos Referring Provider Korkarin, Dr. Melissa Whitman Referring Provider Korkarin, Dr. Melissa Whitman Attending Provider Korkarin, Dr. Melissa Whitman Other Provider Mason, Dr. Gaytan Other Provider Dr. Obdulio Crespo Other Provider Dr. Obdulio Crespo Attending Provider Mason, Dr. Gaytan Referring Provider Dr. Jorgito Moss Attending Provider Dr. Rizwana Hagen Referring Provider Lzi Navarro Attending Provider Unavailable Dr. Valeriano Beasley Referring Provider Edilberto COMPOTYPE OPERATOR, COMPOTYPE OPERATOR-C Xochilt Estrada Attending Provider YUSRA LUNA, TESSA Stanford Attending Unavailable GALE LUNA, VALERIANO Stanford Primary Care Unavailable TESSA GUZMAN MD Attending Unavailable GALE LUNA, VALERIANO Stanford Primary Care Unavailable PHYSICIAN, NONE Admitting Unavailable TOM NASH MD, DR GERBER Attending Magaliv frannie BEASLEY MD, VALERIANO Stanford Primary Care Unavailable Dr. Valeriano Beasley Primary Care Provider Dr. Valeriano Beasley Referring Provider Dr. Valeriano Beasley Other Provider Dr. Jung Braun Attending Provider Dr. José Miguel Valverde Attending Provider Dr. Lukas Cuevas Attending Provider Price COMPOTYPE OPERATOR, COMPOTYPE OPERATOR-C Estefany Attending Provider Dr. Valeriano Beasley Primary Care Provider Dr. Valeriano Beasley Referring Provider Dr. José Miguel Valverde Attending Provider Dr. Lukas Cuevas Attending Provider FAUSTO Thrasher NP Attending Provider Dr. Alexi Jaime Attending Provider Gale LUNA, Valeriano Primary Care Provider Suzan EXPERIMENTAL DISPLAY BUILDER.MOTHER'S HELPER, Ni Unavailable Samir JOHNSON, Suzanna Unavailable Carrie [...] Referring Provider Estefany Cool Attending Provider Suzan EXPERIMENTAL DISPLAY BUILDER.MOTHER'S HELPER, Ni Unavailable Samir JOHNSON, Suzanna Unavailable Gale [...] Melony LUNA, Dr. Tessa Martinez Other Provider [phone] Sun LUNA, Dr. Quinones Other Provider Penny LUNA, Dr. Hoang Other Provider [phone] Kay LUNA, Dr. Celaya Other Provider Everett LUNA, Dr. Lala Other Provider Sarkis LUNA, Dr. Reyes Other Provider Tomas LUNA, Dr. Fernandez Other Provider Xiao LUNA, Dr. Hall Other Provider [phone] Samantha LUNA, Dr. Hammer Other Provider Unavailabl e Elton LUNA, Dr. Lutz Other Provider [phone] Yovani LUNA, Dr. Villaseñor Other Provider Smooth LUNA, Dr. Bauer Other Provider [phone] Edwige LUNA, Dr. Russell Other Provider Denisa FLORES, Dr. Grayson Other Provider [phone] Luisana LUNA, Dr. Henry Other Provider [phone] Eliazar LUNA, Dr. Tong Other Provider [phone] David FLORES, Dr. Jenkins Other Provider Louis LUNA, Dr. Rueda Other Provider Sebastien LUNA, Dr. Larsen Other Provider [phone] Alexi Olivas DO Attending Provider Dr. Flakita Florentino DO Attending Provider Dr. Alexi Olivas DO Other Provider Dr. Homer Guzman DO Attending Provider Suzan EXPERIMENTAL DISPLAY BUILDER.MOTHER'S HELPER, Ni Unavailable Samir JOHNSON, Suzanna Unavailable Gale LUNA, Dr. Bal Primary Care Provider Anderson LUNA, Dr. Geovani Martines Attending Provider Anderson LUNA, Dr. Geovani Martines Referring Provider [phone] Gale LUNA, Dr. Bal Referring Provider Francis LUNA, Dr. Jalloh Attending Provider Francis LUNA, Dr. Jalloh Referring Provider Brendon FLORES, Dr. Truong Referring Provider Ren LUNA, Dr. Psator Emergency Provider [phone] Hampton DO, Dr. Saez Admit Provider Unavail able Hampton DO, Dr. Saez Attending Provider Unav frannie Beasley MD, Dr. Bal Primary Care Provider Anderson LUNA, Dr. Geovani Martines Attending Provider Anderson LUNA, Dr. Geovani Martines Referring Provider [phone] Ren LUNA, Dr. Pastor Emergency Provider Hampotn DO, Dr. Saez Admit Provider Unavail able Hampton DO, Dr. Saez Other Provider Unavail able Francis LUNA, Dr. Jalloh Other Provider Ping Schroeder Attending Provider Gale LUNA, Dr. Bal Primary Care Provider Ashley Radford Attending Provider Ashley Radford Referring Provider VALERIANO BEASLEY Attending Unavailable VALERIANO BEASLEY Primary Care Unavailable VALERIANO BEASLEY Primary Care Unavailable SUZANNA DAWSON Attending Unavailable PATRIA KHANNA JR Attending Unavailable VALERIANO BEASLEY Primary Care Unavailable SELF Referring Unavailable VALERIANO BEASLEY Primary Care Unavailable VALERIANO BEASLEY Attending Unavailable VALERIANO BEASLEY Primary Care Unavailable STEPHANIE ROY Attending Unavailable VALERIANO BEASLEY Primary Care Unavailable SUZANNA DAWSON Attending Unavailable PATRIA KHANNA JR Attending Unavailable VALERIANO BEASLEY Primary Care Unavailable SELF Referring Unavailable ARUN CHRISTIAN Referring Unavailable GALE, VALERIANO A Primary Care Unavailable ARUN CHRISTIAN Attending Unavailable GALE, VALERIANO A Primary Care Unavailable GALE, VALERIANO A Referring Unavailable GALE, VALERIANO A Primary Care Unavailable NI SAUCEDA Referring Unavailable GALE, VALERIANO A Primary Care Unavailable SUZANNA DAWSON Referring Unavailable KHANNA PATRIA SIDHU Referring Unavailable GALE, VALERIANO A Primary Care Unavailable MASCI, STEPHANIE A Attending Unavailable GALE, VALERIANO A Primary Care Unavailable NI SAUCEDA Attending Unavailable GALE, VALERIANO A Primary Care Unavailable KHANNA JR, PATRIA J Referring Unavailable GALE, VALERIANO A Primary Care Unavailable KHANNA JR, PATRIA J Referring Unavailable GALE, VALERIANO A Primary Care Unavailable NYLA DE JESUS Attending Unavailable KHANNA JR, PATRIA J Referring Unavailable GALE, VALERIANO A Primary Care Unavailable GALE, VALERIANO A Primary Care Unavailable MASCI, STEPHANIE A Referring Unavailable GALE, VALERIANO A Primary Care Unavailable GALE, VALERIANO A Primary Care Unavailable MASCI, STEPHANIE A Referring Unavailable GALE, VALERIANO A Primary Care Unavailable NI SAUCEDA Attending Unavailable GALE, VALERIANO A Primary Care Unavailable RIBELLI, NYLA Referring Unavailable GALE, VALERIANO A Primary Care Unavailable MASCI, STEPHANIE A Referring Unavailable GALE, VALERIANO A Primary Care Unavailable SUZANNA DAWSON Referring Unavailable GALE, VALERIANO A Primary Care Unavailable SELF Referring Unavailable SUZANNA DAWSON Attending Unavailable Gale LUNA, Dr. Bal Primary Care Provider Dr. Shubham Blanco MD Attending Provider Dr. Valeriano Beasley MD Referring Provider Dr. Shubham Blanco MD Referring Provider Gale, Valeriano Primary Care Unavailable Geovani Barron Referring Unavailable Geovani Barron Attending Unavailable Shubham Blanco Attending Unavailable Gale, Valeriano Primary Care Unavailable Gale, Valeriano Referring Unavailable Gale, Valeriano Referring Unavailable Estefany Thrasher NP Attending Unavailable Gale, Valeriano Primary Care Unavailable Gale, Valeriano Primary Care Unavailable Gale, Valeriano Referring Unavailable Ahmet Chacon Attending Unavailable Shubham Blanco Referring Unavailable Shubham Blanco Attending Unavailable Gale, Valeriano Primary Care Unavailable Gale, Valeriano Primary Care Unavailable Suzanna Goodman Referring Unavailable Suzanna Goodman Attending Unavailable Gale, Valeriano Primary Care Unavailable Tony Shultz Consulting Unavailable Alexi Olivas Attending Unavailable Flakita Florentino Admitting Unavailable Ej Murguia Consulting Unavailable Ricci Ballesteros Consulting Unavailable Homer Guzman Consulting Unavailable Tessa Ty Consulting Unavailable Joni Garsia Consulting Unavailable Viktor Francis Consulting Unavailable Belia Villanueva Consulting UnavailSpike Copeland Consulting Unavailable Eric Dockery Consulting Unavailable Jim Marin Consulting Unavailable Isabel Hagen Consulting Unavailable Jaquelin Singh Consulting Unavailable Nelda Conde Consulting Unavailable Kasi Pina Consulting Unavailable Juancarlos Rebollar Consulting Unavailable Drew Gibbons Consulting Unavailable Kenan Crawley Consulting Unavailable Carl Lieberman Consulting Unavailable Ran Perea Consulting Unavailable Gregory Hernandez Consulting Unavailable Mohit Myers Consulting Unavailable Patria Crowe Consulting Unavailable Flakita Florentino Consulting Unavailable Francis, Shubham Attending Unavailable Gale, Valeriano Primary Care Unavailable Tessa Hampton Admitting Unavailable Tessa Hampton Consulting Unavailable Gale, Valeriano Primary Care Unavailable Gale, Valeriano Referring Unavailable Estefany Thrasher NP Attending Unavailable Francis, Shubham Attending Unavailable Gale, Valeriano Primary Care Unavailable Gale, Valeriano Referring Unavailable Gale, Valeriano Primary Care Unavailable Luis Frank Attending Unavailable Gale, Valeriano Primary Care Unavailable Stan Gilbert Attending Unavailable Gale, Valeriano Primary Care Unavailable Geovani Barron Attending Unavailable Geovani Barron Referring Unavailable Francis, Shubham Attending Unavailable Francis, Shubham Referring Unavailable Gale, Valeriano Primary Care Unavailable Francis, Shubham Attending Unavailable Francis, Shubham Referring Unavailable Gale, Valeriano Primary Care Unavailable Francis, Shubham Attending Unavailable Francis, Shubham Referring Unavailable Gale, Valeriano Primary Care Unavailable Francis, Shubham Attending Unavailable Gale, Valeriano Primary Care Unavailable Tessa Hampton Consulting Unavailable Tessa Hampton Admitting Unavailable Francis, Shubham Consulting Unavailable Alexi Olivas Attending Unavailable Gale, Valeriano Primary Care Unavailable Flakita Florentino Admitting Unavailable Tony Shultz Consulting Unavailable Ej Murguia Consulting Unavailable Ricci Ballesteros Consulting Unavailable Homer Guzman Consulting Unavailable Tessa Ty Consulting Unavailable Joni Garsia Consulting Unavailable Viktor Francis Consulting Unavailable Belia Villanueva Consulting UnavailSpike Copeland Consulting Unavailable Eric Dockery Consulting Unavailable Jim Marin Consulting Unavailable Isabel Hagen Consulting Unavailable AlJaquelin willis Consulting Unavailable CondeNelda rios Consulting Unavailable YovaniLinda bennetttam Consulting Unavailable Juancalros Rebollar Consulting Unavailable Edwige, Drew Consulting Unavailable Dhesi, Kenan Consulting Unavailable Carl Lieberman Consulting Unavailable Ran Perea Consulting Unavailable Gregory Hernandez Consulting Unavailable Mohit Myers Consulting Unavailable Patria Crowe Consulting Unavailable Flakita Florentino Consulting Unavailable Alexi Olivas Consulting Unavailable Valeriano Beasley [facility] Unavailable Valeriano Beasley Referring Unavailable Ping Lucas Attending [facility] Unavailable Valeriano Beasley Referring Unavailable Shubham Blanco Attending Unavailable [facility] Unavailable Geovani Barron Referring Unavailable Geovani Barron Attending Unavailable Alexi Olivas Referring Unavailable Homer Guzman Attending [facility] Unavailable Flakita Florentino Attending Unavailable Tessa Hampton Attending Unavailable [facility] Unavailable Ashley Radford Referring Unavailable Ashley Radford Attending Unavailable Shubham Blanco Referring Unavailable Shubham Blanco [facility] Allergies Allergy Classification Reported Allergen(s) Allergy Type Date of Onset Reaction(s) Facility (20 sources) hydroCHLOROthiazide; Translations: [hydrochlorothiazide] Drug Allergy 008 Unknown [facility] Work Phone: Comment on above: rash (20 sources) environmental [Other] Propensity to adverse reactions 008 Unknown [facility] Work Phone: (20 sources) Angiotensin II receptor antagonist; Translations: [ARB-ANGIOTENSIN RECEPTOR ANTAGONIST] Drug Intolerance 025 Other: See Comments [facility] (20 sources) Sertraline; Translations: [SERTRALINE] Drug Allergy 025 Other: See Comments [facility] (13 sources) Losartan Drug Allergy [address] [facility] (1 source) hydroCHLOROthiazide Drug Allergy 025 [facility] (1 source) Losartan Drug Allergy 025 [facility] Medications Current Medications Medication Drug [...] PO daily September 19, 2024 1:00am bp On Hold: Order Changed Start: 04-04-2024 End: 09-19-2024 take 1 tablet [...] by alison th once daily. ascorbic acid 1000 mg oral tablet (20 sources) Vitamin C Start: 02-26-2025 take 1 tablet by mouth once daily Ascorbic Acid (Vitamin C) 1,000 mg tablet Active 1000 mg PO daily 30 30 5 February 26, 2025 2:56pm Take with iron tablets Start: 09-09-2022 End: 02-26-2025 take 1 tablet by mouth twice daily at mealtime Ascorbic Acid (Vitamin C) 500 mg Tablet Discontinued 1000 mg PO TWICE DAILY WITH MEALS 120 30 0 September 09, 2022 1:00am February 26, 2025 2:57pm Take with iron tablets Start: 09-09-2022 take [...] sources) alpha-Adrenergic Iban, beta-Adrenergic Iban Start: End: 025 take 1 tablet by mouth twice daily Carvedilol 12.5 mg tablet Active 12.5 mg PO TWICE A DAY September 19, 2024 1:00am bp cetirizine hydrochloride 10 mg oral tablet (6 sources) Histamine-1 Receptor Antagonist Start: take 1 tablet by mouth once daily as needed Cetirizine (24hour Allergy) 10 mg tablet Active 10 mg PO DAILY as needed for allergy symptoms January 23, 2025 12:00am cholecalciferol 0.125 mg oral capsule (20 sources) [...] Status: Ordered take 1 tablet by alison once daily cholecalciferol (VITAMIN D3) 5,000 unit tab Take 5,000 Units by mouth once daily. Active Comment on above: Take 5,000 Units by mouth once daily. Co P94-Gypb Oil-Mayer 3-E (4 sources) Start: 03-25-2022 Co B38-Ibeb Oil-Mayer 3-E Active CAP PO March 24, 2022 11:00pm Start: 03-25-2022 Co S65-Rcgg Oi l-Mayer 3-E Active CAP PO March 25, 2022 [...] on above: Take 1,000 mg by alison . doxepin hydrochloride 25 mg oral capsule (20 [...] on above: Take 1 capsule by mo [facility] daily at bedtime. [id number] 0.3 ml EPINEPHrine 1 mg/ml auto-injector (15 sources) alpha-Adrenergic Agonist, beta-Adrenergic Agonist, Catecholamine Start: [...] Comment on above: Take 1 tablet by [facility] once daily. ferrous sulfate 325 mg oral tablet (20 sources) Start: 01-30-2025 take 1 tablet by mouth once ferrous sulfate 325 mg (65 mg iron) tablet Take 1 tablet by mouth once daily. Per gastro: Dr. Blanco 01/30/2025 Active Start: 01-25-2025 End: 02-26-2025 take 1 tablet by mouth every other day Ferrous Sulfate 325 mg (65 mg iron) tablet Active 325 mg PO EVERY OTHER DAY 30 5 February 26, 2025 2:55pm Start: 09-09-2022 End: 01-30-2025 take 1 tablet by mouth once daily ferrous sulfate 325 mg (65 mg iron) tablet Take 325 mg by mouth once daily. 09/09/2022 01/30/2025 Discontinued (Adjust Sig - Block E-Cancel) Start: 09-09-2022 End: 01-05-2023 Ferrous Sulfate (Ferosul) [...] above: Take 325 mg by mouth . Fish Oils (2 sources) Start: 11-30-2021 Fish [...] 1 tablet by alison th once daily. Wiraeruiiecq-Qzd-Yt on-Fa-Vit K (Adults Multivitamin) 18 mg iron-400 mcg-25 mcg Tablet (4 sources) Start: 03-25-2022 take 1 tablet by mouth once Ecwiurzvfgzj-Zhb-Twh n-Fa-Vit K (Adults Multivitamin) 18 mg iron-400 mcg-25 mcg Tablet Active TABLET PO March 24, 2022 11:00pm Start: 03-25-2022 take 1 tablet by alison th once Hisewstkorzl-Imq-Usij-Fa-Vit K (Adults Multivitamin) 18 mg iron-400 mcg-25 [...] pain, # 100 tab(s), 2 Refill(s), Pharmacy: [facility]/pharmacy #[id number], 177.8, cm, 11/29/21 16:55:00 EDT, Height Start Date: 12/01/21 Status: Ordered Comment on above: Dissolve 1 tablet un miesha the tongue every 5 minutes as needed for chest pain. Mayer 2-Fit-Asy-Fish Oil (2 sources) Start: 09-01-2023 Mayer 3-Qnl-Liy-Fish Oil Active CAP PO September 01, 2023 1:00am Start: 09-01-2023 Mayer 3-Dha-Ep a-Fish Oil Active CAP PO September 01, 2023 12:00am Mayer 1-Iqr-Tve-Fish Oil 100-400-1,000 mg capsule (13 sources) Start: 09-01-2023 take 100-400 capsules by mouth once daily as needed Mayer 2-Txg-Plt-Fish Oil 100-400-1,000 mg capsule Active 1 NMA PO DAILY as needed for supplement September 01, 2023 1:00am Start: 09-01-2023 Mayer 3-Dha-Ep a-Fish Oil 100-400-1,000 mg capsule Active NMA PO September 01, 2023 1:00am Peg 3350-Sod Sulf,Klga-Vat-Fxr (Suflave) 178.7-7.3-0.5 gram recon soln (5 sources) Start: 01-29-2025 Peg 3350-Sod Sulf,Oqda-Ohe-Rzk (Suflave) 178.7-7.3-0.5 gram recon soln Active 0 PO .COMPLEX 2 0 January 29, 2025 12:00am take as directed for split dose bowel prep pravastatin sodium 40 mg oral tablet (4 sources) HMG-CoA Reductase Inhibitor Start: 05-30-2013 take 40 mg by mouth once daily Pravastatin Active 40 MG PO DAILY May 30, 2013 12:00am 12 hr ranolazine 500 mg extended release oral tablet (1 source) Anti-anginal Start: 01-27-2022 ranolazine 500 mg oral tablet, extended release Dose : 500 mg = 1 tab(s), Oral, BID, # 60 tab(s), 5 Refill(s), Pharmacy: [facility]/pharmacy #[id number], 177.8, cm, 01/27/22 6:11:00 EDT, Height, [...] Vitamin B Complex (B Complex-Vitamin B12) tablet (15 sources) Start: 09-01-2023 Vitamin B Comp anne (B Complex-Vitamin B12) tablet Active 1 {tbl} PO DAILY September 01, 2023 1:00am feet On Hold: Order Changed Start: 09-01-2023 Vitamin B Comp anne (B [...] 1:00am Start: 09-01-2023 take 1 tablet by alisno th once daily Vitamin B Complex (B [...] Ordered Start: 09-27-2021 take 2 tablets by mo uth once daily atenolol (TENORMIN) 50 mg tablet Take 2 tablets by mouth once daily. 180 tablet 1 09/27/2021 Active Start: 05-30-2013 take 1 mg by mouth once daily Atenolol Active MG PO DAILY May 30, 2013 12:00am Comment on above: Take 2 tablets by mo uth once daily. [facility] BD ASSURE BPM-AUTO ARM [...] qDay, # 30 tab(s), 3 Refill(s), Pharmacy: [facility]/pharmacy #[id number], 175.3, cm, 12/28/21 11:24:00 EDT, Height Start Date: 12/28/21 Status: Ordered Comment on above: [facility] diphenhydrAMINE hydrochloride 25 mg oral tablet (20 sources) Histamine-1 Receptor Antagonist Start: 09-01-19 End: 09-19-19 take 1 tablet by mouth at bedtime as needed Diphenhydramine Hcl (Allergy (Diphenhydramine)) 25 mg tablet Discontinued 25 mg PO AT BEDTIME as needed September 01, 2023 1:00am September 19, 2024 3:07pm Start: 03-25-2022 take 1 capsule by [facility] at bedtime Diphenhydramine Hcl (Benadryl) 25 mg [...] as needed. famotidine 20 mg oral tablet (20 sources) Histamine-2 Receptor Antagonist Start: End: take 1 tablet by mouth twice daily Famotidine (Pepcid) 20 mg tablet Discontinued 20 mg PO TWICE A DAY 10 July 18, 2024 1:00am September 19, 2024 3:20pm Start: 03-29-2024 End: 04-15-2024 take 1 tablet by mouth once daily Famotidine (Pepcid) 20 mg tablet Discontinued 20 mg PO DAILY 7 March 29, 2024 12:00am April 15, 2024 11:11am fexofenadine hydrochloride 180 mg oral tablet (20 sources) Histamine-1 Receptor Antagonist Start: 09-19-2024 End: 01-23-2025 take 1 tablet by mouth every other day Fexofenadine 180 mg tablet Discontinued 180 mg PO EVERY OTHER DAY September 19, 2024 1:00am January 23, 2025 11:23pm allergies Start: 08-19-2024 End: 09-25-2024 take 1 tablet by mouth once daily fexofenadine (MARII ALLERGY) 180 mg tablet Take 1 tablet by mouth once daily. 90 tablet 3 08/19/2024 Active FLUoxetine 40 mg oral capsule (20 sources) Serotonin Reuptake Inhibitor Start: 07-31-2024 End: 12-30-2024 take 1 capsule by mouth once daily Fluoxetine 40 mg capsule Discontinued 40 mg PO daily September 19, 2024 1:00am December 30, 2024 8:59am mood furosemide 40 mg oral tablet (15 sources) Loop Diuretic Start: 09-06-2023 End: 04-15-2024 take 1 tablet by mouth once daily Furosemide (Lasix) 40 mg tablet Discontinued 40 mg PO DAILY 5 0 September 06, 2023 1:00am April 15, 2024 11:11am losartan potassium 50 mg oral tablet (20 sources) Angiotensin 2 Receptor Iban Start: 04-20-2023 End: 04-04-2024 take 1 tablet by mouth once daily [...] 1 tablet by alison th once daily. naproxen sodium 220 mg oral tablet (1 source) Nonsteroidal Anti-inflammatory Drug take 1 tablet by mouth twice daily at mealtime naproxen sodium (MIDOL, NAPROXEN,) 220 mg tablet Take 220 mg by mouth twice daily with meals. 0 Active Comment on above: Take 220 mg by mouth twice daily with meals. ofloxacin 3 mg/ml ophthalmic solution (18 sources) Quinolone Antimicrobial Start: 09-02-19 End: 12-10-19 [...] sources) Proton Pump Inhibitor Start: 09-09-2022 End: 02-26-2025 take 1 tablet by mouth once daily Pantoprazole (Protonix) 40 mg tablet,delayed release (DR/EC) Discontinued 40 mg PO DAILY 30 30 2 January 25, 2025 12:00am February 26, 2025 2:55pm Start: 09-09-2022 End: 04-20-2023 take 1 tablet by mouth twice daily Pantoprazole 40 mg Tablet,Delayed Release (Dr/Ec) Discontinued 40 mg PO TWICE A DAY 60 30 0 September 09, 2022 1:00am December 09, 2022 11:05am Comment on above: Take 40 mg by mouth twice daily. Take twice daily Take 1 tablet by alison th twice daily. Take twice daily predniSONE 20 mg oral tablet (20 sources) Start: 12-30-2024 End: 01-23-2025 take 2 tablets by mouth once daily Prednisone 20 mg tablet Discontinued 40 mg PO DAILY 10 0 December 30, 2024 12:00am January 23, 2025 11:24pm Start: 07-18-2024 End: 09-19-2024 take 3 tablets by mouth once daily Prednisone 20 mg tablet Discontinued 60 mg PO DAILY 15 0 July 18, 2024 1:00am September 19, 2024 3:07pm Start: 03-29-2024 End: 04-15-2024 take 2 tablets by mouth once daily Prednisone 20 mg tablet Discontinued 40 mg PO DAILY 14 0 March 29, 2024 12:00am April 15, 2024 11:11am sertraline 100 mg oral tablet (20 sources) Serotonin Reuptake Inhibitor Start: 04-20-2023 End: 09-19-2024 take 1 tablet by mouth once daily Sertraline 100 mg tablet Discontinued 100 mg PO daily June 04, 2024 1:00am September 19, 2024 3:07pm Start: 09-14-2022 End: 06-04-2024 take 1 tablet by mouth once daily Sertraline 50 mg tablet Discontinued 50 mg PO DAILY 2022 12:00am November 12th, 2024 8:10am Comment on above: 1/2 a tablet by mout h once a day for 14 days then go to one tablet daily Take 1 tablet by alison th once daily. 1/2 a tablet by mouth once a day for 14 days then go to one tablet daily Take one tablet by m outh daily spironolactone 25 mg oral tablet (13 sources) Aldosterone Antagonist Start: 09-19-2024 End: 11-05-2024 Spironolactone 25 mg tablet Discontinued 12.5 mg PO DAILY September 19, 2024 1:00am November 05, 2024 [...] q12h, # 60 tab(s), 6 Refill(s), Pharmacy: [facility]/pharmacy #[id number], 177.8, cm, 11/29/21 16:55:00 EDT, Height Start Date: 12/01/21 Status: Ordered Comment on above: Take 1 tablet by alison th twice daily. Per CardioDr. Edwards Problems Active Problems Problem Classification Problem Date Documented Da te Episodic/Chronic Acute and unspecified renal failure (20 sources) Injury of kidney; Translations: [Acute kidney failure, unspecified] 09-02-2022 Episodic Acute myocardial infarction (20 sources) ST elevation (STEMI) myocardial infarction of unspecified site; Translations: [Myocardial infarction] Onset: 2 Resolved: 3 Chronic Comment on above: with 4 stents Acute posthemorrhagic anemia (20 sources) Acute posthemorrhagic anemia; Translations: [Acute posthemorrhagic anemia] Onset: 5 09-02-2022 Episodic Adjustment disorders (20 sources) Reactive depression (situational); Translations: [Adjustment disorder with depressed mood] Onset: 3 Chronic Alcohol-related disorders (20 sources) Alcohol abuse; Translations: [Alcohol abuse, uncomplicated] Onset: 3 Chronic Anxiety disorders (20 sources) Anxiety; Translations: [Anxiety disorder, unspecified] Onset: 5 03-15-2021 Chronic Aortic; peripheral; and visceral artery aneurysms (15 sources) Aortic root dilatation; Translations: [Thoracic aortic ectasia] 09-05-2023 Chronic Calculus of urinary tract (20 sources) Kidney stone; Translations: [Calculus of kidney] Onset: 5 10-17-2023 Episodic Cardiac dysrhythmias (3 sources) Unspecified atrial fibrillation; Translations: [Junctional escape beats] Onset: 2 Chronic Complications of surgical procedures or medical care (18 sources) Drug-induced hypotension; Translations: [Hypotension due to drugs] 12-27-2024 Episodic Conditions associated with dizziness or vertigo (17 sources) Dizziness; Translations: [Dizziness and giddiness] 09-05-2023 Episodic Coronary atherosclerosis and other heart disease (20 sources) Coronary atherosclerosis; Translations: [Atherosclerotic heart disease of grayling coronary artery without angina pectoris] Onset: 2 Chronic Deficiency and other anemia (8 sources) Anemia; Translations: [Anemia, unspecified] Episodic Deficiency and other anemia (1 source) Anemia, unspecified; Translations: [Anemia, unspecified] Onset: 5 Episodic Diseases of white blood cells (20 sources) Leukocytosis; Translations: [Elevated white blood cell count, unspecified] Onset: 5 09-02-2022 Chronic Disorders of lipid metabolism (20 sources) Hyperlipidemia; Translations: [Hyperlipidemia, unspecified] Onset: 1 Chronic Diverticulosis and diverticulitis (20 sources) Diverticular disease; Translations: [Diverticulosis of intestine, part unspecified, without perforation or abscess without bleeding] Onset: 3 Chronic E Codes: Adverse effects of medical drugs (13 sources) Adverse reaction to drug; Translations: [Adverse effect of unspecified drugs, medicaments and biological substances, initial encounter] Onset: 5 01-24-2025 Episodic Essential hypertension (20 sources) Essential hypertension; Translations: [Essential (primary) hypertension] Onset: 8 Chronic Gastrointestinal hemorrhage (19 sources) Lower gastrointestinal hemorrhage; Translations: [Gastrointestinal hemorrhage, unspecified] Onset: 5 Episodic Gout and other crystal arthropathies (20 sources) Gout, unspecified; Translations: [Gout] Onset: 1 Chronic Neoplasms of unspecified nature or uncertain behavior (5 sources) Monoclonal gammopathy (clinical); Translations: [Monoclonal gammopathy] Onset: 5 09-27-2024 Chronic Nonspecific chest pain (20 sources) Chest pain; Translations: [Chest pain, unspecified] Episodic Nutritional deficiencies (1 source) Vitamin D deficiency, unspecified; Translations: [Vitamin D deficiency] Onset: 5 Chronic Occlusion or stenosis of precerebral arteries (3 sources) Carotid artery occlusion; Translations: [Occlusion and stenosis of unspecified carotid artery] 02-07-2024 Chronic Other aftercare (1 source) Post-discharge follow-up; Translations: [Encounter for follow-up examination after completed treatment for conditions other than malignant neoplasm] 01-01-2025 Episodic Other circulatory disease (10 sources) H/O: hypertension; Translations: [Personal history of other diseases of the circulatory system] 09-02-2022 Episodic Other circulatory disease (1 source) Personal history of other diseases of the circulatory system; Translations: [Personal history of other diseases of circulatory system] 09-10-2022 Episodic Other circulatory disease (10 sources) H/O: heart disorder; Translations: [Personal history [...] right ear] 04-20-2023 Episodic Other gastrointestinal disorders (18 sources) Hemorrhagic diarrhea ; Translations: [Diarrhea, unspecified] 09-02-2022 Episodic Other gastrointestinal disorders (1 source) Diarrhea, unspecified; Translations: [Diarrhea] 09-10-2022 Episodic Other gastrointestinal disorders (20 sources) History of lower gastrointestinal bleed; Translations: [Personal history of other diseases of the digestive system] 01-05-2023 Episodic Other gastrointestinal disorders (9 sources) Dysphagia; Translations: [Dysphagia, unspecified] 12-27-2024 Episodic Other gastrointestinal disorders (18 sources) History of gastrointestinal bleed; Translations: [Personal history of other diseases of the digestive system] 01-23-2025 Episodic Other gastrointestinal disorders (4 sources) Vascular ectasia of colon; Translations: [Angiodysplasia of colon without hemorrhage] Onset: 5 01-30-2025 Episodic Other gastrointestinal disorders (1 source) Angiodysplasia of colon without hemorrhage; Translations: [Angiodysplasia of colon] Onset: Episodic Other gastrointestinal disorders (1 source) Personal history of other diseases of the digestive system; Translations: [Personal history of other diseases of the digestive system] Onset: Episodic Other hematologic conditions (2 sources) Protein electrophoresis abnormal; Translations: [Other specified abnormalities of plasma proteins] 08-30-2024 Episodic Other injuries and conditions due to external causes (20 sources) Angioedema; Translations: [Angioneurotic edema, subsequent encounter] 07-31-2024 Episodic Other injuries and conditions due to external causes (1 source) Angioneurotic edema, initial encounter; Translations: [Angioneurotic edema, initial encounter] Onset: Episodic Other liver diseases (20 sources) Hepatic fibrosis; Translations: [Liver fibrosis] Onset: 4 05-15-2024 Chronic Other lower respiratory disease (15 sources) Dyspnea; Translations: [Shortness of breath] 09-05-2023 Episodic Other lower respiratory disease (2 sources) Shortness of breath; Translations: [Shortness of breath] 09-05-2023 Episodic Other nervous system disorders (20 sources) Neuropathy; Translations: [Polyneuropathy, unspecified] 09-01-2023 Chronic Other nervous system disorders (4 sources) Polyneuropathy, unspecified; Translations: [Mononeuritis of unspecified site] Onset: 5 09-01-2023 Chronic Other nervous system disorders (1 source) Polyneuropathy; Translations: [Polyneuropathy, unspecified] 12-23-2024 Chronic Other nervous system disorders (1 source) Hereditary and idiopathic neuropathy, unspecified; Translations: [Neuropathy, idiopathic] Onset: Chronic Other nervous system disorders (1 source) [...] disorders (1 source) Hypercalcemia; Translations: [Hypercalcemia] Onset: Chronic Other nutritional; endocrine; and metabolic disorders (1 source) Overweight in adulthood with body mass index of 25 or more but less than 30; Translations: [Overweight] 05-01-2024 Episodic Other nutritional; endocrine; and metabolic disorders (12 sources) Body mass index 25-29 - overweight; Translations: [Overweight] 01-24-2025 Episodic Other nutritional; endocrine; and metabolic disorders (1 source) Overweight; Translations: [Overweight] Onset: Episodic Other skin disorders (14 sources) Tongue swelling; Translations: [Localized swelling, mass and lump, head] 03-29-2024 Episodic Other upper respiratory disease (9 sources) Expiratory stridor; Translations: [Stridor] 12-27-2024 Episodic Other upper respiratory disease (9 sources) Dysphonia; Translations: [Dysphonia] 12-27-2024 Episodic Dionne-; endo-; and myocarditis; cardiomyopathy (except that caused by tuberculosis or sexually transmitted disease) (20 sources) Heart valve disorder; Translations: [Endocarditis, valve unspecified] Onset: 3 05-18-2023 Chronic Residual codes; unclassified (1 source) Beer drinker; Translations: [Other specified health status] 12-23-2024 Episodic Residual codes; unclassified (1 source) Other specified health status; Translations: [Drinks beer] Onset: 06-02-202 5 Episodic Respiratory failure; insufficiency; arrest (adult) (20 sources) Acute respiratory failure; Translations: [Acute respiratory failure, unspecified whether with hypoxia or hypercapnia] Onset: 5 12-27-2024 Episodic Spondylosis; intervertebral disc disorders; other back problems (17 sources) Degeneration of lumbar intervertebral disc; Translations: [Other intervertebral disc degeneration, lumbar region] 09-01-2023 Chronic Spondylosis; intervertebral disc disorders; other back problems (20 sources) Lumbosacral radiculopathy; Translations: [Radiculopathy, lumbosacral region] Onset: 3 07-10-2023 Episodic Systemic lupus erythematosus and connective tissue disorders (1 source) Systemic involvement of connective tissue, unspecified; Translations: [Unspecified diffuse connective tissue disease (HCC)] Onset: 5 Chronic Thyroid disorders (1 source) Disorder of thyroid, unspecified; Translations: [Thyroid dysfunction] Onset: 5 Episodic Unclassified (1 source) Patient encounter status 11-01-2024 Unclassified (8 sources) Please call [phone] to schedule the follow up appt. Unclassified (6 sources) To schedule colonoscopy with Dr. Chacon Unclassified (1 source) Liver fibrosis; Translations: [Liver fibrosis] Onset: 4 Unclassified (1 source) Eosinophilia, unspecified; Translations: [Eosinophilia, unspecified] Onset: 5 Urinary tract infections (13 sources) Acute cystitis; Translations: [Acute cystitis without hematuria] Onset: 5 01-24-2025 Episodic Past or Other Problems Problem Classification [...] (20 sources) Patient encounter status; Translations: [Other senior living (current) drug therapy] Onset: 03-15-2021 03-15-2021 Episodic Other aftercare (1 source) Other senior living (current) drug therapy; Translations: [Medication management] Onset: 03-15-2021 Episodic Other connective tissue disease (20 sources) Atrophy of muscle of right shoulder; Translations: [Muscle wasting and atrophy, not elsewhere classified, right shoulder] Onset: 04-20-2023 04-20-2023 Episodic Other connective tissue disease (20 sources) Muscle atrophy; Translations: [Muscle wasting and atrophy, not elsewhere classified, other site] Onset: 04-20-2023 04-20-2023 Episodic Other diseases of kidney and ureters [...] Test Name Value Interpretation Reference Range Facility MR/PATESTEPHANIEon 03-18-2025 MR/PATESTEPHANIE Normal [facility] ABD Limited w/ Elastographyo n 03-10-2025 ABD Limited w/ Elastography Normal [facility] Absolute lymphocyte countOrd ered By: Shubham Blanco on 03-10-2025 Lymphocytes Auto (Unsp spec) [#/Vol] 0.76 10*3/uL Low 0.83-4.51 [facility] Absolute neutrophil countOrd ered By: Shubham Blanco on 03-10-2025 Neutrophils (Bld) [#/Vol] 3.4 10*3/uL 2.0-7.7 [facility] Anion gap in Serum or Plasma Ordered By: Shubham Blanco on 03-10-2025 Anion gap [Moles/Vol] 10 mmol/L 5-15 [facility] Automated lymphocyte count a s percentage of total leukocytesOrdered By: Shubham Blanco on 03-10-2025 Lymphocytes/100 WBC Auto (Unsp spec) 11.9 % Low 19-41 [facility] BUN/creatinine ratioOrdered By: Shubhammary jo Blanco on 03-10-2025 Urea nitrogen/Creatinine [Mass ratio] 12.7 mg/mg 10-20 [facility] Basophil percentageOrdered B y: Shubham Blanco on 03-10-2025 Basophils/100 WBC (Bld) 1.1 % High 0-1 [facility] Bilirubin, totalOrdered By: Shubham Blanco on 03-10-2025 Bilirubin [Mass/Vol] 0.78 mg/dL 0.00-1.30 [facility] CBC W/Diff, Automatedon 02-21 Absolute Lymph 0.76 X10 3/uL Low 0.83-4.51 [facility] Comment on above: Performed By: #### L 300.3900, L503.0106, L100.0100, L503.6550, L503.6030, L500.4050 ####[facility] [address] [place], [address] Absolute Neut 3.4 X10 3/uL Normal 2.0-7.7 [facility] Comment on above: Performed By: #### L 300.3900, L503.0106, L100.0100, L503.6550, L503.6030, L500.4050 ####[facility] [address] [place], [address] Basophils/100 WBC (Bld) 1.1 % High 0-1 [facility] Comment on above: Performed By: #### L 300.3900, L503.0106, L100.0100, L503.6550, L503.6030, L500.4050 ####[facility] [address] [place], [address] Eosinophils/100 WBC (Bld) 18.0 % High 0-5 [facility] Comment on above: Performed By: #### L 300.3900, L503.0106, L100.0100, L503.6550, L503.6030, L500.4050 ####[facility] [address] [place], [address] Erythrocyte distribution width (RBC) [Ratio] 12.9 % Normal 11.6-14.6 [facility] Comment on above: Performed By: #### L 300.3900, L503.0106, L100.0100, L503.6550, L503.6030, L500.4050 ####[facility] [address] [place], [address] Hematocrit (Bld) [Volume fraction] 37.1 % Low 40-54 [facility] Comment on above: Performed By: #### L 300.3900, L503.0106, L100.0100, L503.6550, L503.6030, L500.4050 ####[facility] [address] [place], [address] Hemoglobin (Bld) [Mass/Vol] 12.5 g/dL Low 13.0-16.5 [facility] Comment on above: Performed By: #### L 300.3900, L503.0106, L100.0100, L503.6550, L503.6030, L500.4050 ####[facility] [address] [place], [address] IG% 0.300 Normal 0.0-0.9 [facility] Comment on above: Result Comment: IG% - Immature Granulocytes (promyelocytes, myelocytes andmetamyelocytes) > 1% indicates that a LEFT SHIFT is Present. Performed By: #### L 300.3900, L503.0106, L100.0100, L503.6550, L503.6030, L500.4050 ####[facility] [address] [place], [address] Lymphocytes/100 WBC (Bld) 11.9 % Low 19-41 [facility] Comment on above: Performed By: #### L 300.3900, L503.0106, L100.0100, L503.6550, L503.6030, L500.4050 ####[facility] [address] [place], [address] MCH (RBC) [Entitic mass] 35.6 pg High 27.0-32.0 [facility] Comment on above: Performed By: #### L 300.3900, L503.0106, L100.0100, L503.6550, L503.6030, L500.4050 ####[facility] [address] [place], [address] MCHC (RBC) [Mass/Vol] 33.7 g/dL Normal 32-36 [facility] Comment on above: Performed By: #### L 300.3900, L503.0106, L100.0100, L503.6550, L503.6030, L500.4050 ####[facility] [address] [place], [address] MCV (RBC) [Entitic vol] 105.7 fL High 80-94 [facility] Comment on above: Performed By: #### L 300.3900, L503.0106, L100.0100, L503.6550, L503.6030, L500.4050 ####[facility] [address] [place], [address] Monocytes/100 WBC (Bld) 14.9 % High 0-10 [facility] Comment on above: Performed By: #### L 300.3900, L503.0106, L100.0100, L503.6550, L503.6030, L500.4050 ####[facility] [address] [place], [address] Neutrophils/100 WBC (Bld) 53.8 % Normal 47-70 [facility] Comment on above: Performed By: #### L 300.3900, L503.0106, L100.0100, L503.6550, L503.6030, L500.4050 ####[facility] [address] [place], [address] Nucleated RBC (Bld) [#/Vol] 0 10*3/uL Normal 0-5 [facility] Comment on above: Performed By: #### L 300.3900, L503.0106, L100.0100, L503.6550, L503.6030, L500.4050 ####[facility] [address] [place], [address] Platelet mean volume (Bld) [Entitic vol] 10.1 fL Normal 6.2-12.0 [facility] Comment on above: Performed By: #### L 300.3900, L503.0106, L100.0100, L503.6550, L503.6030, L500.4050 ####[facility] [address] [place], [address] Platelets (Bld) [#/Vol] 180 10*3/uL Normal 150-450 [facility] Comment on above: Performed By: #### L 300.3900, L503.0106, L100.0100, L503.6550, L503.6030, L500.4050 ####[facility] [address] [place], [address] RBC (Bld) [#/Vol] 3.51 10*6/uL Low 4.6-6.2 [facility] Comment on above: Performed By: #### L 300.3900, L503.0106, L100.0100, L503.6550, L503.6030, L500.4050 ####[facility] [address] [place], [address] RDW SD 50.3 fl High 35.1-43.9 [facility] Comment on above: Performed By: #### L 300.3900, L503.0106, L100.0100, L503.6550, L503.6030, L500.4050 ####[facility] [address] [place], [address] WBC (Bld) [#/Vol] 6.4 10*3/uL Normal 4.4-11.0 [facility] Comment on above: Performed By: #### L 300.3900, L503.0106, L100.0100, L503.6550, L503.6030, L500.4050 ####[facility] [address] [place], [address] Absolute Neut Normal 2.0-7.7 [facility] Comment on above: Result Comment: PT H AD THESE COMPLETED ALREADY Performed By: #### L 500.4050, L500.4100, L300.3900, L100.0100 ####[facility] [address] [place], [address] HCT Normal 40-54 [facility] Comment on above: Result Comment: PT H AD THESE COMPLETED ALREADY Performed By: #### L 500.4050, L500.4100, L300.3900, L100.0100 ####[facility] [address] [place], [address] HGB Normal 13.0-16.5 [facility] Comment on above: Result Comment: PT H AD THESE COMPLETED ALREADY Performed By: #### L 500.4050, L500.4100, L300.3900, L100.0100 ####[facility] [address] [place], [address] MCH Normal 27.0-32.0 [facility] Comment on above: Result Comment: PT H AD THESE COMPLETED ALREADY Performed By: #### L 500.4050, L500.4100, L300.3900, L100.0100 ####[facility] [address] [place], [address] MCHC Normal 32-36 [facility] Comment on above: Result Comment: PT H AD THESE COMPLETED ALREADY Performed By: #### L 500.4050, L500.4100, L300.3900, L100.0100 ####[facility] [address] [place], [address] MCV Normal 80-94 [facility] Comment on above: Result Comment: PT H AD THESE COMPLETED ALREADY Performed By: #### L 500.4050, L500.4100, L300.3900, L100.0100 ####[facility] [address] [place], [address] NEUT% Normal 47-70 [facility] Comment on above: Result Comment: PT H AD THESE COMPLETED ALREADY Performed By: #### L 500.4050, L500.4100, L300.3900, L100.0100 ####[facility] [address] [place], [address] PLT Normal 150-450 [facility] Comment on above: Result Comment: PT H AD THESE COMPLETED ALREADY Performed By: #### L 500.4050, L500.4100, L300.3900, L100.0100 ####[facility] [address] [place], [address] RBC Normal 4.6-6.2 [facility] Comment on above: Result Comment: PT H AD THESE COMPLETED ALREADY Performed By: #### L 500.4050, L500.4100, L300.3900, L100.0100 ####[facility] [address] [place], [address] RDW CV Normal 11.6-14.6 [facility] Comment on above: Result Comment: PT H AD THESE COMPLETED ALREADY Performed By: #### L 500.4050, L500.4100, L300.3900, L100.0100 ####[facility] [address] [place], [address] RDW SD Normal 35.1-43.9 [facility] Comment on above: Result Comment: PT H AD THESE COMPLETED ALREADY Performed By: #### L 500.4050, L500.4100, L300.3900, L100.0100 ####[facility] [address] [place], [address] WBC Normal 4.4-11.0 [facility] Comment on above: Result Comment: PT H AD THESE COMPLETED ALREADY Performed By: #### L 500.4050, L500.4100, L300.3900, L100.0100 ####[facility] [address] [place], [address] Carbon dioxide, total [Moles /volume] in Central venous bloodOrdered By: Shubham Blanco on 03-10-2025 CO2 [Moles/Vol] 25.7 mmol/L 21.0-32.0 [facility] Chloride assayOrdered By: Tessa Blanco on 03-10-2025 Chloride [Moles/Vol] 103 mmol/L 98-108 [facility] Comprehensive Metabolic Prof ilon 03-10-2025 Albumin [Mass/Vol] 3.9 g/dL Normal 3.4-4.8 [facility] Comment on above: Performed By: #### L 300.3900, L503.0106, L100.0100, L503.6550, L503.6030, L500.4050 ####[facility] [address] [place], [address] Albumin/Globulin [Mass ratio] 1.4 {ratio} Normal 0.9-2.4 [facility] Comment on above: Performed By: #### L 300.3900, L503.0106, L100.0100, L503.6550, L503.6030, L500.4050 ####[facility] [address] [place], [address] ALK PHOS 120 U/L Normal 40-129 [facility] Comment on above: Performed By: #### L 300.3900, L503.0106, L100.0100, L503.6550, L503.6030, L500.4050 ####[facility] [address] [place], [address] ALT [Catalytic activity/Vol] 22 U/L Normal <=46 [facility] Comment on above: Performed By: #### L 300.3900, L503.0106, L100.0100, L503.6550, L503.6030, L500.4050 ####[facility] [address] [place], [address] AST [Catalytic activity/Vol] 34 U/L Normal <=37 [facility] Comment on above: Performed By: #### L 300.3900, L503.0106, L100.0100, L503.6550, L503.6030, L500.4050 ####[facility] [address] [place], [address] Bilirubin [Mass/Vol] 0.78 mg/dL Normal 0.00-1.30 [facility] Comment on above: Performed By: #### L 300.3900, L503.0106, L100.0100, L503.6550, L503.6030, L500.4050 ####[facility] [address] [place], [address] BUN/CRE 12.7 RATIO Normal 10-20 [facility] Comment on above: Performed By: #### L 300.3900, L503.0106, L100.0100, L503.6550, L503.6030, L500.4050 ####[facility] [address] [place], [address] Calcium [Mass/Vol] 9.6 mg/dL Normal 7.6-11.0 [facility] Comment on above: Performed By: #### L 300.3900, L503.0106, L100.0100, L503.6550, L503.6030, L500.4050 ####[facility] [address] [place], [address] Chloride [Moles/Vol] 103 mmol/L Normal 98-108 [facility] Comment on above: Performed By: #### L 300.3900, L503.0106, L100.0100, L503.6550, L503.6030, L500.4050 ####[facility] [address] [place], [address] CO2 [Moles/Vol] 25.7 mmol/L Normal 21.0-32.0 [facility] Comment on above: Performed By: #### L 300.3900, L503.0106, L100.0100, L503.6550, L503.6030, L500.4050 ####[facility] [address] [place], [address] Creatinine [Mass/Vol] 0.74 mg/dL Normal 0.70-1.20 [facility] Comment on above: Performed By: #### L 300.3900, L503.0106, L100.0100, L503.6550, L503.6030, L500.4050 ####[facility] [address] [place], [address] GAP 10 Normal 5-15 [facility] Comment on above: Performed By: #### L 300.3900, L503.0106, L100.0100, L503.6550, L503.6030, L500.4050 ####[facility] [address] [place], [address] GFR/1.73 sq M.predicted among non-blacks MDRD (S/P/Bld) [Vol rate/Area] 95 mL/min/{1.73_m2} Normal >60 [facility] Comment on above: Result Comment: mL/m in/1.73m2 CKD-EPI Creatinine Equation (2020) Performed By: #### L 300.3900, L503.0106, L100.0100, L503.6550, L503.6030, L500.4050 ####[facility] [address] [place], [address] Globulin (S) [Mass/Vol] 2.8 g/dL Normal 2.2-4.2 [facility] Comment on above: Performed By: #### L 300.3900, L503.0106, L100.0100, L503.6550, L503.6030, L500.4050 ####[facility] [address] [place], [address] Glucose [Mass/Vol] 115 mg/dL High 70-99 [facility] Comment on above: Performed By: #### L 300.3900, L503.0106, L100.0100, L503.6550, L503.6030, L500.4050 ####[facility] [address] [place], [address] Potassium [Moles/Vol] 4.4 mmol/L Normal 3.3-5.1 [facility] Comment on above: Performed By: #### L 300.3900, L503.0106, L100.0100, L503.6550, L503.6030, L500.4050 ####[facility] [address] [place], [address] Sodium [Moles/Vol] 139 mmol/L Normal 133-145 [facility] Comment on above: Performed By: #### L 300.3900, L503.0106, L100.0100, L503.6550, L503.6030, L500.4050 ####[facility] [address] [place], [address] T PROT 6.6 g/dL Normal 5.9-8.4 [facility] Comment on above: Performed By: #### L 300.3900, L503.0106, L100.0100, L503.6550, L503.6030, L500.4050 ####[facility] [address] [place], [address] Urea nitrogen [Mass/Vol] 9 mg/dL Normal 4-19 [facility] Comment on above: Performed By: #### L 300.3900, L503.0106, L100.0100, L503.6550, L503.6030, L500.4050 ####[facility] [address] [place], [address] ALB Normal 3.4-4.8 [facility] Comment on above: Result Comment: PT H AD THESE COMPLETED ALREADY Performed By: #### L 500.4050, L500.4100, L300.3900, L100.0100 ####[facility] [address] [place], [address] ALK PHOS Normal 40-129 [facility] Comment on above: Result Comment: PT H AD THESE COMPLETED ALREADY Performed By: #### L 500.4050, L500.4100, L300.3900, L100.0100 ####[facility] [address] [place], [address] ALT Normal <=46 [facility] Comment on above: Result Comment: PT H AD THESE COMPLETED ALREADY Performed By: #### L 500.4050, L500.4100, L300.3900, L100.0100 ####[facility] [address] [place], [address] AST Normal <=37 [facility] Comment on above: Result Comment: PT H AD THESE COMPLETED ALREADY Performed By: #### L 500.4050, L500.4100, L300.3900, L100.0100 ####[facility] [address] [place], [address] BUN Normal 4-19 [facility] Comment on above: Result Comment: PT H AD THESE COMPLETED ALREADY Performed By: #### L 500.4050, L500.4100, L300.3900, L100.0100 ####[facility] [address] [place], [address] BUN/CRE Normal 10-20 [facility] Comment on above: Result Comment: PT H AD THESE COMPLETED ALREADY Performed By: #### L 500.4050, L500.4100, L300.3900, L100.0100 ####[facility] [address] [place], [address] Calcium Normal 7.6-11.0 [facility] Comment on above: Result Comment: PT H AD THESE COMPLETED ALREADY Performed By: #### L 500.4050, L500.4100, L300.3900, L100.0100 ####[facility] [address] [place], [address] CL Normal 98-108 [facility] Comment on above: Result Comment: PT H AD THESE COMPLETED ALREADY Performed By: #### L 500.4050, L500.4100, L300.3900, L100.0100 ####[facility] [address] [place], [address] CO2 Normal 21.0-32.0 [facility] Comment on above: Result Comment: PT H AD THESE COMPLETED ALREADY Performed By: #### L 500.4050, L500.4100, L300.3900, L100.0100 ####[facility] [address] [place], [address] CREAT,SERUM Normal 0.70-1.20 [facility] Comment on above: Result Comment: PT H AD THESE COMPLETED ALREADY Performed By: #### L 500.4050, L500.4100, L300.3900, L100.0100 ####[facility] [address] [place], [address] eGFR Normal >60 [facility] Comment on above: Result Comment: PT H AD THESE COMPLETED ALREADY Performed By: #### L 500.4050, L500.4100, L300.3900, L100.0100 ####[facility] [address] [place], [address] GAP Normal 5-15 [facility] Comment on above: Result Comment: PT H AD THESE COMPLETED ALREADY Performed By: #### L 500.4050, L500.4100, L300.3900, L100.0100 ####[facility] [address] [place], [address] GLU Normal 70-99 [facility] Comment on above: Result Comment: PT H AD THESE COMPLETED ALREADY Performed By: #### L 500.4050, L500.4100, L300.3900, L100.0100 ####[facility] [address] [place], [address] Potassium Normal 3.3-5.1 [facility] Comment on above: Result Comment: PT H AD THESE COMPLETED ALREADY Performed By: #### L 500.4050, L500.4100, L300.3900, L100.0100 ####[facility] [address] [place], [address] T BILI Normal 0.00-1.30 [facility] Comment on above: Result Comment: PT H AD THESE COMPLETED ALREADY Performed By: #### L 500.4050, L500.4100, L300.3900, L100.0100 ####[facility] [address] [place], [address] T PROT Normal 5.9-8.4 [facility] Comment on above: Result Comment: PT H AD THESE COMPLETED ALREADY Performed By: #### L 500.4050, L500.4100, L300.3900, L100.0100 ####[facility] [address] [place], [address] Comprehensive Metabolic Profil Normal 133-145 [facility] Comment on above: Result Comment: PT H AD THESE COMPLETED ALREADY Performed By: #### L 500.4050, L500.4100, L300.3900, L100.0100 ####[facility] [address] [place], [address] Eosinophil percentageOrdered By: Shubham Blanco on 03-10-2025 Eosinophils/100 WBC (Bld) 18.0 % High 0-5 [facility] Erythrocyte distribution wid th ratioOrdered By: Shubham Blanco on 03-10-2025 Erythrocyte distribution width (RBC) [Ratio] 12.9 % 11.6-14.6 [facility] Erythrocyte distribution wid th standard deviationOrdered By: Shubham Blanco on 03-10-2025 Erythrocyte distribution width (RBC) [Ratio] 50.3 fl High 35.1-43.9 [facility] Ferritinon 03-10-2025 Ferritin [Mass/Vol] 104 ng/mL Normal 37-417 [facility] Comment on above: Performed By: #### L 300.3900, L503.0106, L100.0100, L503.6550, L503.6030, L500.4050 ####[facility] [address] [place], [place], [id number] Glomerular filtration rate ( GFR) estimation/1.73 sq m using serum, plasma, or whole bOrdered By: Shubham Blanco on 03-10-2025 GFR/1.73 sq M.predicted among non-blacks MDRD (S/P/Bld) [Vol rate/Area] 95 mL/min/{1.73_m2} >60 [facility] Comment on above: mL/min/1.73m2 CKD-EP I Creatinine Equation (2020) Hematocrit Auto (Bld) [Volum e fraction]Ordered By: Shubham Blanco on 03-10-2025 Hematocrit (Bld) [Volume fraction] 37.1 % Low 40-54 [facility] Hemoglobin measurementOrdere d By: Shubham Blanco on 03-10-2025 Hemoglobin (Bld) [Mass/Vol] 12.5 g/dL Low 13.0-16.5 [facility] Immature granulocytes/100 WB C Auto (Bld)Ordered By: Shubham Blanco on 03-10-2025 Immature granulocytes/100 WBC (Bld) 0.300 % 0.0-0.9 [facility] Comment on above: IG% - Immature Granu locytes (promyelocytes, myelocytes and metamyelocytes) > 1% indicates that a LEFT SHIFT is Present. International normalized rat io (INR) calculationOrdered By: Shubham Blanco on 03-10-2025 INR Coag (Bld) [Relative time] 1.1 {INR} [facility] Iron measurement (mass/mass) Ordered By: Shubham Blanco on 03-10-2025 Iron (Unsp spec) [Mass/Mass] 93 ug/dL 65-175 [facility] Iron+Iron Binding Capacityon 03-10-2025 Iron [Mass/Vol] 93 ug/dL Normal 65-175 [facility] Comment on above: Performed By: #### L 300.3900, L503.0106, L100.0100, L503.6550, L503.6030, L500.4050 ####[facility] [address] [place], [address] IRON SATURATION 35.0 Normal 9-55 [facility] Comment on above: Performed By: #### L 300.3900, L503.0106, L100.0100, L503.6550, L503.6030, L500.4050 ####[facility] [address] [place], [address] TIBC 268 ug/dL Normal 250-450 [facility] Comment on above: Performed By: #### L 300.3900, L503.0106, L100.0100, L503.6550, L503.6030, L500.4050 ####[facility] [address] [place], [address] UIBC 175 ug/dL Low 228-428 [facility] Comment on above: Performed By: #### L 300.3900, L503.0106, L100.0100, L503.6550, L503.6030, L500.4050 ####[facility] [address] [place], [address] Laboratory - Chemistry and C hemistry - challengeOrdered By: Shubham Blanco on 03-10-2025 AST [Catalytic activity/Vol] 34 U/L <38 [facility] Lipid Profileon 03-10-2025 CHOL Normal <=200 [facility] Comment on above: Result Comment: PT H AD THESE COMPLETED ALREADY Performed By: #### L 500.4050, L500.4100, L300.3900, L100.0100 ####[facility] [address] [place], [address] CHOL:HDL Normal [facility] Comment on above: Result Comment: PT H AD THESE COMPLETED ALREADY Performed By: #### L 500.4050, L500.4100, L300.3900, L100.0100 ####[facility] [address] [place], [address] [facility] Comment on above: Result Comment: PT H AD THESE COMPLETED ALREADY Performed By: #### L 500.4050, L500.4100, L300.3900, L100.0100 ####[facility] [address] [place], [address] [facility] Comment on above: Result Comment: PT H AD THESE COMPLETED ALREADY Performed By: #### L 500.4050, L500.4100, L300.3900, L100.0100 ####[facility] [address] [place], [address] [facility] Comment on above: Result Comment: PT H AD THESE COMPLETED ALREADY Performed By: #### L 500.4050, L500.4100, L300.3900, L100.0100 ####[facility] [address] [place], [address] VLDL Normal 5-40 [facility] Comment on above: Result Comment: PT H AD THESE COMPLETED ALREADY Performed By: #### L 500.4050, L500.4100, L300.3900, L100.0100 ####[facility] [address] [place], [address] MCV (mean corpuscular volume ) determinationOrdered By: Shubham Blanco on 03-10-2025 MCV (RBC) [Entitic vol] 105.7 fL High 80-94 [facility] Mean corpuscular hemoglobin (MCH) determinationOrdered By: Shubham Blanco on 03-10-2025 MCH (RBC) [Entitic mass] 35.6 pg High 27.0-32.0 [facility] Mean corpuscular hemoglobin concentration (MCHC) determinationOrdered By: Shubham Blanco on 03-10-2025 MCHC (RBC) [Mass/Vol] 33.7 g/dL 32-36 [facility] Mean platelet volume determi nationOrdered By: Shubham Blanco on 03-10-2025 Platelet mean volume (Bld) [Entitic vol] 10.1 fL 6.2-12.0 [facility] Monocyte percentageOrdered B y: Shubham Blanco on 03-10-2025 Monocytes/100 WBC (Bld) 14.9 % High 0-10 [facility] Neutrophil percentageOrdered By: Shubham Blanco on 03-10-2025 Neutrophils/100 WBC (Bld) 53.8 % 47-70 [facility] No Panel InformationOrdered By: Shubham Blanco on 03-10-2025 Unsaturated Iron Binding Capacity 175 ug/dL Low 228-428 [facility] Nucleated red blood cell per centageOrdered By: Shubham Blanco on 03-10-2025 Nucleated RBC/100 WBC (Bld) [Ratio] 0 % 0-5 [facility] Platelet countOrdered By: Tessa Blanco on 03-10-2025 Platelets (Bld) [#/Vol] 180 10*3/uL 150-450 [facility] Potassium measurement (mass/ volume)Ordered By: Shubham Blanco on 03-10-2025 Potassium (Unsp spec) [Mass/Vol] 4.4 mmol/L 3.3-5.1 [facility] Prothrombin Time w/INRon INR Coag (PPP) [Relative time] 1.1 {INR} Normal [facility] Comment on above: Performed By: #### L 300.3900, L503.0106, L100.0100, L503.6550, L503.6030, L500.4050 ####[facility] [address] [place], [place], [id number] PT Coag (PPP) [Time] 14.3 s Normal 11.7-14.9 [facility] Comment on above: Performed By: #### L 300.3900, L503.0106, L100.0100, L503.6550, L503.6030, L500.4050 ####[facility] [address] [place], [place], [address] INR Normal [facility] Comment on above: Result Comment: PT H AD THESE COMPLETED ALREADY Performed By: #### L 500.4050, L500.4100, L300.3900, L100.0100 ####[facility] [address] [place], [address] PROTIME Normal 11.7-14.9 [facility] Comment on above: Result Comment: PT H AD THESE COMPLETED ALREADY Performed By: #### L 500.4050, L500.4100, L300.3900, L100.0100 ####[facility] [address] [place], [address] Prothrombin timeOrdered By: Shubham Blanco on 03-10-2025 PT Coag (PPP) [Time] 14.3 s 11.7-14.9 [facility] RBC Auto (Bld) [#/Vol]Ordere d By: Shubham Blanco on 03-10-2025 RBC (Bld) [#/Vol] 3.51 10*6/uL Low 4.6-6.2 [facility] Serum creatinine measurement (mass/volume)Ordered By: Shubham Blanco on 03-10-2025 Creatinine [Mass/Vol] 0.74 mg/dL 0.70-1.20 [facility] Serum globulin measurementOr dered By: Shubham Blanco on 03-10-2025 Globulin (S) [Mass/Vol] 2.8 g/dL 2.2-4.2 [facility] Serum glucose measurement (m ass/volume)Ordered By: Shubham Blanco on 03-10-2025 Glucose [Mass/Vol] 115 mg/dL High 70-99 [facility] Serum or plasma alanine guevara otransferase (ALT) measurementOrdered By: Shubham Blanco on 03-10-2025 ALT [Catalytic activity/Vol] 22 U/L <47 [facility] Serum or plasma albumin reid urement (mass/volume)Ordered By: Shubham Blanco on 03-10-2025 Albumin [Mass/Vol] 3.9 g/dL 3.4-4.8 [facility] Serum or plasma albumin/glob ulin mass ratioOrdered By: Shubham Blanco on 03-10-2025 Albumin/Globulin [Mass ratio] 1.4 {ratio} 0.9-2.4 [facility] Serum or plasma alkaline adelfo sphatase measurementOrdered By: Shubham Blanco on 03-10-2025 ALP [Catalytic activity/Vol] 120 U/L 40-129 [facility] Serum or plasma calcium reid urement (mass/volume)Ordered By: Shubham Blanco on 03-10-2025 Calcium [Mass/Vol] 9.6 mg/dL 7.6-11.0 [facility] Serum or plasma ferritin steve surement (mass/volume)Ordered By: Shubham Blanco on 03-10-2025 Ferritin [Mass/Vol] 104 ng/mL 37-417 [facility] Serum or plasma iron saturat ion measurement (mass fraction)Ordered By: Shubham Blanco on 03-10-2025 Iron saturation [Mass fraction] 35.0 % 9-55 [facility] Serum or plasma urea nitroge n measurement (mass/volume)Ordered By: Shubham Blanco on 03-10-2025 Urea nitrogen [Mass/Vol] 9 mg/dL 4-19 [facility] Sodium levelOrdered By: Nilda Blanco on 03-10-2025 Sodium [Moles/Vol] 139 mmol/L 133-145 [facility] Total proteinOrdered By: Gennaro Blanco on 03-10-2025 Protein [Mass/Vol] 6.6 g/dL 5.9-8.4 [facility] Vitamin B12on 03-10-2025 Cobalamin (Vitamin B12) [Mass/Vol] 627 pg/mL Normal 180-914 [facility] Comment on above: Performed By: #### L 300.3900, L503.0106, L100.0100, L503.6550, L503.6030, L500.4050 ####[facility] [address] [place], [address] Vitamin B12 ser/plasOrdered By: Shubham Blanco on 03-10-2025 Cobalamin (Vitamin B12) [Mass/Vol] 627 pg/mL 180-914 [facility] White blood cell (WBC) count Ordered By: Shubham Blanco on 03-10-2025 WBC (Bld) [#/Vol] 6.4 10*3/uL 4.4-11.0 [facility] Gastroenterology Visit Repor ton 02-26-2025 Gastroenterology Visit Report Normal [facility] Abdomen Single Viewon 2024 Abdomen Single View Normal [facility] PSA,Total - Annual Screenon 02-25-2025 PSA,TOT SCREEN 3.95 ng/mL Normal 0.02-4.00 [facility] Comment on above: Result Comment: This test was performed using the [employer] tPSAmethod. Measured values of a patient??sample can varydepending on the testing procedure used. PSA valuesdetermined on patient samples by different testingprocedures cannot be used interchangeably. If there is achange in PSA assays while monitoring therapy, sequentialtesting should be performed to confirm baseline values. Performed By: #### L 501.9910 ####[facility] [address] [place], [place], [id number] Absolute lymphocyte countOrd ered By: Shubham Blanco on 02-07-2025 Lymphocytes Auto (Unsp spec) [#/Vol] 0.79 10*3/uL Low 0.83-4.51 [facility] Absolute neutrophil countOrd ered By: Shubham Blanco on 02-07-2025 Neutrophils (Bld) [#/Vol] 4.8 10*3/uL 2.0-7.7 [facility] Ammoniaon 02-07-2025 Ammonia (P) [Moles/Vol] 39.6 umol/L Normal 16-60 [facility] Comment on above: Performed By: #### L 501.6710, L503.5510, L500.4050, L100.0100 ####[facility] [address] [place], [place], [id number] Anion gap in Serum or Plasma Ordered By: Shubham Blanco on 02-07-2025 Anion gap [Moles/Vol] 12 mmol/L 5-15 [facility] Automated lymphocyte count a s percentage of total leukocytesOrdered By: Shubham Blanco on 02-07-2025 Lymphocytes/100 WBC Auto (Unsp spec) 10.2 % Low 19-41 [facility] BUN/creatinine ratioOrdered By: Shubham Blanco on 02-07-2025 Urea nitrogen/Creatinine [Mass ratio] 13.6 mg/mg 10-20 [facility] Basophil percentageOrdered B y: Shubham Blanco on 02-07-2025 Basophils/100 WBC (Bld) 1.0 % 0-1 [facility] Bilirubin, totalOrdered By: Shubham Blanco on 02-07-2025 Bilirubin [Mass/Vol] 0.52 mg/dL 0.00-1.30 [facility] CBC W/Diff, Automatedon 01-21 Absolute Lymph 0.79 X10 3/uL Low 0.83-4.51 [facility] Comment on above: Performed By: #### L 501.6710, L503.5510, L500.4050, L100.0100 ####[facility] [address] [place], [address] Absolute Neut 4.8 X10 3/uL Normal 2.0-7.7 [facility] Comment on above: Performed By: #### L 501.6710, L503.5510, L500.4050, L100.0100 ####[facility] [address] [place], [address] Basophils/100 WBC (Bld) 1.0 % Normal 0-1 [facility] Comment on above: Performed By: #### L 501.6710, L503.5510, L500.4050, L100.0100 ####[facility] [address] [place], [address] Eosinophils/100 WBC (Bld) 14.6 % High 0-5 [facility] Comment on above: Performed By: #### L 501.6710, L503.5510, L500.4050, L100.0100 ####[facility] [address] [place], [address] Erythrocyte distribution width (RBC) [Ratio] 14.0 % Normal 11.6-14.6 [facility] Comment on above: Performed By: #### L 501.6710, L503.5510, L500.4050, L100.0100 ####[facility] [address] [place], [address] Hematocrit (Bld) [Volume fraction] 33.4 % Low 40-54 [facility] Comment on above: Performed By: #### L 501.6710, L503.5510, L500.4050, L100.0100 ####[facility] [address] [place], [address] Hemoglobin (Bld) [Mass/Vol] 11.2 g/dL Low 13.0-16.5 [facility] Comment on above: Performed By: #### L 501.6710, L503.5510, L500.4050, L100.0100 ####[facility] [address] [place], [address] IG% 0.800 Normal 0.0-0.9 [facility] Comment on above: Result Comment: IG% - Immature Granulocytes (promyelocytes, myelocytes andmetamyelocytes) > 1% indicates that a LEFT SHIFT is Present. Performed By: #### L 501.6710, L503.5510, L500.4050, L100.0100 ####[facility] [address] [place], [address] Lymphocytes/100 WBC (Bld) 10.2 % Low 19-41 [facility] Comment on above: Performed By: #### L 501.6710, L503.5510, L500.4050, L100.0100 ####[facility] [address] [place], [address] MCH (RBC) [Entitic mass] 35.6 pg High 27.0-32.0 [facility] Comment on above: Performed By: #### L 501.6710, L503.5510, L500.4050, L100.0100 ####[facility] [address] [place], [address] MCHC (RBC) [Mass/Vol] 33.5 g/dL Normal 32-36 [facility] Comment on above: Performed By: #### L 501.6710, L503.5510, L500.4050, L100.0100 ####[facility] [address] [place], [address] MCV (RBC) [Entitic vol] 106.0 fL High 80-94 [facility] Comment on above: Performed By: #### L 501.6710, L503.5510, L500.4050, L100.0100 ####[facility] [address] [place], [address] Monocytes/100 WBC (Bld) 11.2 % High 0-10 [facility] Comment on above: Performed By: #### L 501.6710, L503.5510, L500.4050, L100.0100 ####[facility] [address] [place], [address] Neutrophils/100 WBC (Bld) 62.2 % Normal 47-70 [facility] Comment on above: Performed By: #### L 501.6710, L503.5510, L500.4050, L100.0100 ####[facility] [address] [place], [address] Nucleated RBC (Bld) [#/Vol] 0 10*3/uL Normal 0-5 [facility] Comment on above: Performed By: #### L 501.6710, L503.5510, L500.4050, L100.0100 ####[facility] [address] [place], [address] Platelet mean volume (Bld) [Entitic vol] 9.9 fL Normal 6.2-12.0 [facility] Comment on above: Performed By: #### L 501.6710, L503.5510, L500.4050, L100.0100 ####[facility] [address] [place], [address] Platelets (Bld) [#/Vol] 236 10*3/uL Normal 150-450 [facility] Comment on above: Performed By: #### L 501.6710, L503.5510, L500.4050, L100.0100 ####[facility] [address] [place], [address] RBC (Bld) [#/Vol] 3.15 10*6/uL Low 4.6-6.2 [facility] Comment on above: Performed By: #### L 501.6710, L503.5510, L500.4050, L100.0100 ####[facility] [address] [place], [address] RDW SD 54.8 fl High 35.1-43.9 [facility] Comment on above: Performed By: #### L 501.6710, L503.5510, L500.4050, L100.0100 ####[facility] [address] [place], [address] WBC (Bld) [#/Vol] 7.7 10*3/uL Normal 4.4-11.0 [facility] Comment on above: Performed By: #### L 501.6710, L503.5510, L500.4050, L100.0100 ####[facility] [address] [place], [address] CRPon 02-07-2025 C-REACTIVE PROT 18.70 mg/L High 0.0-3.0 [facility] Comment on above: Performed By: #### L 501.6710, L503.5510, L500.4050, L100.0100 ####[facility] [address] [place], [address] Carbon dioxide, total [Moles /volume] in Central venous bloodOrdered By: Shubham Blanco on 02-07-2025 CO2 [Moles/Vol] 22.5 mmol/L 21.0-32.0 [facility] Chloride assayOrdered By: Tessa Blanco on 02-07-2025 Chloride [Moles/Vol] 105 mmol/L 98-108 [facility] Comprehensive Metabolic Prof ilon 02-07-2025 Albumin [Mass/Vol] 3.6 g/dL Normal 3.4-4.8 [facility] Comment on above: Performed By: #### L 501.6710, L503.5510, L500.4050, L100.0100 ####[facility] [address] [place], [address] Albumin/Globulin [Mass ratio] 1.2 {ratio} Normal 0.9-2.4 [facility] Comment on above: Performed By: #### L 501.6710, L503.5510, L500.4050, L100.0100 ####[facility] [address] [place], [address] ALK PHOS 125 U/L Normal 40-129 [facility] Comment on above: Performed By: #### L 501.6710, L503.5510, L500.4050, L100.0100 ####[facility] [address] [place], [address] ALT [Catalytic activity/Vol] 26 U/L Normal <=46 [facility] Comment on above: Performed By: #### L 501.6710, L503.5510, L500.4050, L100.0100 ####[facility] [address] [place], [address] AST [Catalytic activity/Vol] 35 U/L Normal <=37 [facility] Comment on above: Performed By: #### L 501.6710, L503.5510, L500.4050, L100.0100 ####[facility] [address] [place], [address] Bilirubin [Mass/Vol] 0.52 mg/dL Normal 0.00-1.30 [facility] Comment on above: Performed By: #### L 501.6710, L503.5510, L500.4050, L100.0100 ####[facility] [address] [place], [address] BUN/CRE 13.6 RATIO Normal 10-20 [facility] Comment on above: Performed By: #### L 501.6710, L503.5510, L500.4050, L100.0100 ####[facility] [address] [place], [address] Calcium [Mass/Vol] 9.8 mg/dL Normal 7.6-11.0 [facility] Comment on above: Performed By: #### L 501.6710, L503.5510, L500.4050, L100.0100 ####[facility] [address] [place], [address] Chloride [Moles/Vol] 105 mmol/L Normal 98-108 [facility] Comment on above: Performed By: #### L 501.6710, L503.5510, L500.4050, L100.0100 ####[facility] [address] [place], [address] CO2 [Moles/Vol] 22.5 mmol/L Normal 21.0-32.0 [facility] Comment on above: Performed By: #### L 501.6710, L503.5510, L500.4050, L100.0100 ####[facility] [address] [place], [address] Creatinine [Mass/Vol] 0.80 mg/dL Normal 0.70-1.20 [facility] Comment on above: Performed By: #### L 501.6710, L503.5510, L500.4050, L100.0100 ####[facility] [address] [place], [address] GAP 12 Normal 5-15 [facility] Comment on above: Performed By: #### L 501.6710, L503.5510, L500.4050, L100.0100 ####[facility] [address] [place], [address] GFR/1.73 sq M.predicted among non-blacks MDRD (S/P/Bld) [Vol rate/Area] 93 mL/min/{1.73_m2} Normal >60 [facility] Comment on above: Result Comment: mL/m in/1.73m2 CKD-EPI Creatinine Equation (2020) Performed By: #### L 501.6710, L503.5510, L500.4050, L100.0100 ####[facility] [address] [place], [address] Globulin (S) [Mass/Vol] 3.0 g/dL Normal 2.2-4.2 [facility] Comment on above: Performed By: #### L 501.6710, L503.5510, L500.4050, L100.0100 ####[facility] [address] [place], [address] Glucose [Mass/Vol] 144 mg/dL High 70-99 [facility] Comment on above: Performed By: #### L 501.6710, L503.5510, L500.4050, L100.0100 ####[facility] [address] [place], [address] Potassium [Moles/Vol] 4.1 mmol/L Normal 3.3-5.1 [facility] Comment on above: Performed By: #### L 501.6710, L503.5510, L500.4050, L100.0100 ####[facility] [address] [place], [address] Sodium [Moles/Vol] 139 mmol/L Normal 133-145 [facility] Comment on above: Performed By: #### L 501.6710, L503.5510, L500.4050, L100.0100 ####[facility] [address] [place], [address] T PROT 6.6 g/dL Normal 5.9-8.4 [facility] Comment on above: Performed By: #### L 501.6710, L503.5510, L500.4050, L100.0100 ####[facility] [address] [place], [address] Urea nitrogen [Mass/Vol] 11 mg/dL Normal 4-19 [facility] Comment on above: Performed By: #### L 501.6710, L503.5510, L500.4050, L100.0100 ####[facility] [address] [place], [address] Eosinophil percentageOrdered By: Shubham Blanco on 02-07-2025 Eosinophils/100 WBC (Bld) 14.6 % High 0-5 [facility] Erythrocyte distribution wid th ratioOrdered By: Shubham Blanco on 02-07-2025 Erythrocyte distribution width (RBC) [Ratio] 14.0 % 11.6-14.6 [facility] Erythrocyte distribution wid th standard deviationOrdered By: Shubham Blanco on 02-07-2025 Erythrocyte distribution width (RBC) [Ratio] 54.8 fl High 35.1-43.9 [facility] Glomerular filtration rate ( GFR) estimation/1.73 sq m using serum, plasma, or whole bOrdered By: Shubham Blanco on 02-07-2025 GFR/1.73 sq M.predicted among non-blacks MDRD (S/P/Bld) [Vol rate/Area] 93 mL/min/{1.73_m2} >60 [facility] Comment on above: mL/min/1.73m2 CKD-EP I Creatinine Equation (2020) Hematocrit Auto (Bld) [Volum e fraction]Ordered By: Shubham Blanco on 02-07-2025 Hematocrit (Bld) [Volume fraction] 33.4 % Low 40-54 [facility] Hemoglobin measurementOrdere d By: Shubham Blanco on 02-07-2025 Hemoglobin (Bld) [Mass/Vol] 11.2 g/dL Low 13.0-16.5 [facility] Immature granulocytes/100 WB C Auto (Bld)Ordered By: hSubham Blanco on 02-07-2025 Immature granulocytes/100 WBC (Bld) 0.800 % 0.0-0.9 [facility] Comment on above: IG% - Immature Granu locytes (promyelocytes, myelocytes and metamyelocytes) > 1% indicates that a LEFT SHIFT is Present. Laboratory - Chemistry and C hemistry - challengeOrdered By: Shubham Blanco on 02-07-2025 AST [Catalytic activity/Vol] 35 U/L <38 [facility] MCV (mean corpuscular volume ) determinationOrdered By: Shubham Blanco on 02-07-2025 MCV (RBC) [Entitic vol] 106.0 fL High 80-94 [facility] Mean corpuscular hemoglobin (MCH) determinationOrdered By: Shubham Blanco on 02-07-2025 MCH (RBC) [Entitic mass] 35.6 pg High 27.0-32.0 [facility] Mean corpuscular hemoglobin concentration (MCHC) determinationOrdered By: Shubham Blanco on 02-07-2025 MCHC (RBC) [Mass/Vol] 33.5 g/dL 32-36 [facility] Mean platelet volume determi nationOrdered By: Shubham Blanco on 02-07-2025 Platelet mean volume (Bld) [Entitic vol] 9.9 fL 6.2-12.0 [facility] Monocyte percentageOrdered B y: Shubham Blanco on 02-07-2025 Monocytes/100 WBC (Bld) 11.2 % High 0-10 [facility] Neutrophil percentageOrdered By: Shubham Blanco on 02-07-2025 Neutrophils/100 WBC (Bld) 62.2 % 47-70 [facility] Nucleated red blood cell per centageOrdered By: Shubham Blanco on 02-07-2025 Nucleated RBC/100 WBC (Bld) [Ratio] 0 % 0-5 [facility] Platelet countOrdered By: Tessa Blanco on 02-07-2025 Platelets (Bld) [#/Vol] 236 10*3/uL 150-450 [facility] Potassium measurement (mass/ volume)Ordered By: Shubham Blanco on 02-07-2025 Potassium (Unsp spec) [Mass/Vol] 4.1 mmol/L 3.3-5.1 [facility] RBC Auto (Bld) [#/Vol]Ordere d By: Shubham Blanco on 02-07-2025 RBC (Bld) [#/Vol] 3.15 10*6/uL Low 4.6-6.2 [facility] Serum creatinine measurement (mass/volume)Ordered By: Shubham Blanco on 02-07-2025 Creatinine [Mass/Vol] 0.80 mg/dL 0.70-1.20 [facility] Serum globulin measurementOr dered By: Shubham Blanco on 02-07-2025 Globulin (S) [Mass/Vol] 3.0 g/dL 2.2-4.2 [facility] Serum glucose measurement (m ass/volume)Ordered By: Shubham Blanco on 02-07-2025 Glucose [Mass/Vol] 144 mg/dL High 70-99 [facility] Serum or plasma C reactive p rotein measurement (mass/volume)Ordered By: Shubham Blanco on 02-07-2025 CRP [Mass/Vol] 18.70 mg/L High 0.0-3.0 [facility] Serum or plasma alanine guevara otransferase (ALT) measurementOrdered By: Shubham Blanco on 02-07-2025 ALT [Catalytic activity/Vol] 26 U/L <47 [facility] Serum or plasma albumin reid urement (mass/volume)Ordered By: Shubham Blanco on 02-07-2025 Albumin [Mass/Vol] 3.6 g/dL 3.4-4.8 [facility] Serum or plasma albumin/glob ulin mass ratioOrdered By: Shubham Blanco on 02-07-2025 Albumin/Globulin [Mass ratio] 1.2 {ratio} 0.9-2.4 [facility] Serum or plasma alkaline adelfo sphatase measurementOrdered By: Shubham Blanco on 02-07-2025 ALP [Catalytic activity/Vol] 125 U/L 40-129 [facility] Serum or plasma calcium reid urement (mass/volume)Ordered By: Shubham Blanco on 02-07-2025 Calcium [Mass/Vol] 9.8 mg/dL 7.6-11.0 [facility] Serum or plasma urea nitroge n measurement (mass/volume)Ordered By: Shubham Blanco on 02-07-2025 Urea nitrogen [Mass/Vol] 11 mg/dL 4-19 [facility] Sodium levelOrdered By: Nilda Blanco on 02-07-2025 Sodium [Moles/Vol] 139 mmol/L 133-145 [facility] Total proteinOrdered By: Gennaro Blanco on 02-07-2025 Protein [Mass/Vol] 6.6 g/dL 5.9-8.4 [facility] Venous blood ammonia measure mentOrdered By: Shubham Blanco on 02-07-2025 Ammonia (P) [Moles/Vol] 39.6 umol/L 16-60 [facility] White blood cell (WBC) count Ordered By: Shubham Blanco on 02-07-2025 WBC (Bld) [#/Vol] 7.7 10*3/uL 4.4-11.0 [facility] CNOVon 01-30-2025 CNOV Office Visit (FAMPWS ) -- NAZARIO HUTTON ([id number]) 1950 M Date Time Provider Department 01/30/25 11:20 AM VALERIANO BEASLEY During your visit today, we recorded the following information about you: Pulse Respiration Blood pressure Weight 68/minute 16/minute 104/64 96.8 kg Valeriano Beasley MD 01/30/2025 3:37 PM Signed Chief Complaint Patient presents with: [facility] F/U [facility] Nazario Hutton is a 74 year old male who presents here today for a Hospital follow up. Pt admitted into [facility] on 01/23/25 for GI bleed. Discharge summary: Date of Admission: 01/23/25 Date of Discharge: 01/25/25 Consultations 01/23/25 23:00 Consult: Gastroenterology Routine Consulting Provider: [facility] Reason for Consult: LGIB with ABLA. Reason For Visit: LGIB WITH ABLA Discharge Diagnosis: (1) Acute lower gastrointestinal bleeding: Status: Acute K92.2 - Gastrointestinal hemorrhage, unspecified (2) ABLA (acute blood loss anemia): Status: Acute D62 - Acute posthemorrhagic anemia (3) Adverse drug reaction: Status: Acute T50.905A - Adverse effect of unspecified drugs, medicaments and biological substances, initial encounter Encounter type: initial encounter Qualified Code(s): T50.905A - Adverseeffect of unspecified drugs, medicaments and biological substances, initial encounter (4) History of GI diverticular bleed: Status: Acute Z87.19 - Personal history of other diseases of the digestive system (5) Acute cystitis without hematuria: Status: Acute N30.00 - Acute cystitis without hematuria (6) Overweight (BMI 25.0-29.9): Plan 74-year-old gentleman admitted with a dark red to maroon-colored stool x 3-day before yesterday. No abdominal pain. Patient had total 4 episodes of bright redtomorrow in color blood without stool since Monday night. Last bleeding was at 3 AM on 01/22. No abdominal pain. 1. Acute anemia of blood loss due to acute lower GI bleed suspected due to recurrent diverticular bleed: Patient is being admitted in PCU. Hemoglobin of 10.5 g/dL present on admission (down from 13.5 g/dL on December 30, 2024) with Macrocytosis of 106.2 fL present on admission. Repeat HANDH in the morning 9.9/28% shows 2 g decreased from baseline therefore acute anemia of blood loss. IV PPI 40 mg once daily as it seems lower GI bleed. Clear liquid diet advance to full liquid. HANDH Q6 hourly. - Admit to PCU. Keep n.p.o. except for ice chips, sips and medications. Startpantoprazole 40 mg IV twice daily. IV iron infusion ordered. Continue vitamin C. On oral ferrous sulfate at home There is no GI on-call this weekend. This was communicated to the patient. Previous colonoscopy in August 2022 for lower GI bleed at that time: Impression: - Non-bleeding internal hemorrhoids. - Diverticulosis in the recto-sigmoid colon, in the sigmoid colon, in the descending colon, at the splenic flexure and in the transverse colon. Injected. - Two 1 to 2 mm polyps in the sigmoid colon and in the cecum, removed using lift and cut and a hot snare. Resected and retrieved. Treated with argon plasma coagulation (APC). - Two bleeding colonic angiodysplastic lesions. Treated with argon plasma coagulation (APC). 01/25: Serial HANDH shows that GI bleeding has stabilized. HANDH dropped but dropped to 9.9 then went up 11.1 latest 10.5 g%. Patient has last bleeding on 01/22 at 3 AM, more than 72 hours. Patient ordered 1 more IV infusion and then can discharged on Protonix 40 mg daily. Advised to call GI office on 01/27/2025 to schedule outpatient colonoscopy with Dr. Chacon. Follow-up with [facility] attendance of in 2 weeks. 2. Acute GI blood probably worsened by baby aspirin- Hold aspirin. 4. UA positive for Acute Cystitis without hematuria: UA negative of nitrite, LE100, WBC 10-25 cells, RBC 0-5 cells, squamous epithelial 0-5 cells. 0 bacteria. Patient denies acute urinary tract symptoms including dysuria. Start IV ceftriaxone and await culture and sensitivity data. Urine culture ordered. 5. Recent admission here from December 27, 2024 to December 30, 2024 for treatment of acute respiratory failure due to recurrent angioedema, requiring intubation: Patient was not on losartan during December admission, because he had edema from losartan in the past therefore has been discontinued. Last thought to rule out hydrated etiology. Functional C1 esterase was done and it is 102% therefore wasruled out. 6. CAD; s/p STEMI (2021) s/p stents x 4 (RCA+LAD) on BASA daily plus prn SL NTG-Hold baby aspirin but give sublingual nitroglycerin as needed if chest pain develops. 7. Overweight; with BMI of 29.9 this admission plus fatty liver disease adding to the burden of disease outlined from #1 - #6 - Weight loss will be recommended. Check TSH. 8. History of EtOH cirrhosis and former tobacco use-no leg edema. No pedal edema. Abdominal (more content not included)... Normal [facility] Gastroenterology Visit Repor ton 01-29-2025 Gastroenterology Visit Report Normal [facility] Basic Metabolic Profile (BMP )on 01-26-2025 BUN Normal 4-19 [facility] Comment on above: Result Comment: Canc elled via OM: Order cancelled - Patient discharged Performed By: #### L 100.0100, L500.2500 ####[facility] [address] [facility] [address] BUN/CRE Normal 10-20 [facility] Comment on above: Result Comment: Canc elled via OM: Order cancelled - Patient discharged Performed By: #### L 100.0100, L500.2500 ####[facility] [address] [facility] [address] Calcium Normal 7.6-11.0 [facility] Comment on above: Result Comment: Canc elled via OM: Order cancelled - Patient discharged Performed By: #### L 100.0100, L500.2500 ####[facility] [address] [facility] [address] CL Normal 98-108 [facility] Comment on above: Result Comment: Canc elled via OM: Order cancelled - Patient discharged Performed By: #### L 100.0100, L500.2500 ####[facility] [address] [facility] [address] CO2 Normal 21.0-32.0 [facility] Comment on above: Result Comment: Canc elled via OM: Order cancelled - Patient discharged Performed By: #### L 100.0100, L500.2500 ####[facility] [address] [place], [address] CREAT,SERUM Normal 0.70-1.20 [facility] Comment on above: Result Comment: Canc elled via OM: Order cancelled - Patient discharged Performed By: #### L 100.0100, L500.2500 ####[facility] [address] [place], [address] eGFR Normal >60 [facility] Comment on above: Result Comment: Canc elled via OM: Order cancelled - Patient discharged Performed By: #### L 100.0100, L500.2500 ####[facility] [address] [place], [address] GAP Normal 5-15 [facility] Comment on above: Result Comment: Canc elled via OM: Order cancelled - Patient discharged Performed By: #### L 100.0100, L500.2500 ####[facility] [address] [place], [address] GLU Normal 70-99 [facility] Comment on above: Result Comment: Canc elled via OM: Order cancelled - Patient discharged Performed By: #### L 100.0100, L500.2500 ####[facility] [address] [place], [address] Potassium Normal 3.3-5.1 [facility] Comment on above: Result Comment: Canc elled via OM: Order cancelled - Patient discharged Performed By: #### L 100.0100, L500.2500 ####[facility] [address] [place], [address] Basic Metabolic Profile (BMP) Normal 133-145 [facility] Comment on above: Result Comment: Canc elled via OM: Order cancelled - Patient discharged Performed By: #### L 100.0100, L500.2500 ####[facility] [address] [place], [address] CBC W/Diff, Automatedon 07-0 -2024 Absolute Neut Normal 2.0-7.7 [facility] Comment on above: Result Comment: Canc elled via OM: Order cancelled - Patient discharged Performed By: #### L 100.0100, L500.2500 ####[facility] [address] [place], [address] HCT Normal 40-54 [facility] Comment on above: Result Comment: Canc elled via OM: Order cancelled - Patient discharged Performed By: #### L 100.0100, L500.2500 ####[facility] [address] [place], [address] HGB Normal 13.0-16.5 [facility] Comment on above: Result Comment: Canc elled via OM: Order cancelled - Patient discharged Performed By: #### L 100.0100, L500.2500 ####[facility] [address] [place], [address] MCH Normal 27.0-32.0 [facility] Comment on above: Result Comment: Canc elled via OM: Order cancelled - Patient discharged Performed By: #### L 100.0100, L500.2500 ####[facility] [address] [place], [address] MCHC Normal 32-36 [facility] Comment on above: Result Comment: Canc elled via OM: Order cancelled - Patient discharged Performed By: #### L 100.0100, L500.2500 ####[facility] [address] [place], [address] MCV Normal 80-94 [facility] Comment on above: Result Comment: Canc elled via OM: Order cancelled - Patient discharged Performed By: #### L 100.0100, L500.2500 ####[facility] [address] [place], [address] NEUT% Normal 47-70 [facility] Comment on above: Result Comment: Canc elled via OM: Order cancelled - Patient discharged Performed By: #### L 100.0100, L500.2500 ####[facility] [address] [place], [address] PLT Normal 150-450 [facility] Comment on above: Result Comment: Canc elled via OM: Order cancelled - Patient discharged Performed By: #### L 100.0100, L500.2500 ####[facility] [address] [place], [address] RBC Normal 4.6-6.2 [facility] Comment on above: Result Comment: Canc elled via OM: Order cancelled - Patient discharged Performed By: #### L 100.0100, L500.2500 ####[facility] [address] [place], [address] RDW CV Normal 11.6-14.6 [facility] Comment on above: Result Comment: Canc elled via OM: Order cancelled - Patient discharged Performed By: #### L 100.0100, L500.2500 ####[facility] [address] [place], [address] RDW SD Normal 35.1-43.9 [facility] Comment on above: Result Comment: Canc elled via OM: Order cancelled - Patient discharged Performed By: #### L 100.0100, L500.2500 ####[facility] [address] [place], [address] WBC Normal 4.4-11.0 [facility] Comment on above: Result Comment: Canc elled via OM: Order cancelled - Patient discharged Performed By: #### L 100.0100, L500.2500 ####[facility] [address] [place], [address] Absolute lymphocyte countOrd ered By: Shubham castro 01-25-2025 Lymphocytes Auto (Unsp spec) [#/Vol] 0.72 10*3/uL Low 0.83-4.51 [facility] Absolute neutrophil countOrd ered By: Shubham Blanco on 01-25-2025 Neutrophils (Bld) [#/Vol] 3.5 10*3/uL 2.0-7.7 [facility] Anion gap in Serum or Plasma Ordered By: Shubham Blanco on 01-25-2025 Anion gap [Moles/Vol] 8 mmol/L 5-15 [facility] Automated lymphocyte count a s percentage of total leukocytesOrdered By: Shubham Blanco on 01-25-2025 Lymphocytes/100 WBC Auto (Unsp spec) 13.0 % Low 19-41 [facility] BUN/creatinine ratioOrdered By: Shubhammary jo Blanco on 01-25-2025 Urea nitrogen/Creatinine [Mass ratio] 8.0 mg/mg Low 10-20 [facility] Basic Metabolic Profile (BMP )on 01-25-2025 BUN/CRE 8.0 RATIO Low 10-20 [facility] Comment on above: Performed By: #### L 500.2500, L501.2300 ####[facility] [address] [place], [address] Calcium [Mass/Vol] 8.5 mg/dL Normal 7.6-11.0 [facility] Comment on above: Performed By: #### L 500.2500, L501.2300 ####[facility] [address] [place], [address] Chloride [Moles/Vol] 111 mmol/L High 98-108 [facility] Comment on above: Performed By: #### L 500.2500, L501.2300 ####[facility] [address] [place], [address] CO2 [Moles/Vol] 22.6 mmol/L Normal 21.0-32.0 [facility] Comment on above: Performed By: #### L 500.2500, L501.2300 ####[facility] [address] [place], [address] Creatinine [Mass/Vol] 0.70 mg/dL Normal 0.70-1.20 [facility] Comment on above: Performed By: #### L 500.2500, L501.2300 ####[facility] [address] [place], [address] ECRCL 94.42 ml/min Normal 50-250 [facility] Comment on above: Performed By: #### L 500.2500, L501.2300 ####[facility] [address] [place], [address] GAP 8 Normal 5-15 [facility] Comment on above: Performed By: #### L 500.2500, L501.2300 ####[facility] [address] [place], [address] GFR/1.73 sq M.predicted among non-blacks MDRD (S/P/Bld) [Vol rate/Area] 97 mL/min/{1.73_m2} Normal >60 [facility] Comment on above: Result Comment: mL/m in/1.73m2 CKD-EPI Creatinine Equation (2020) Performed By: #### L 500.2500, L501.2300 ####[facility] [address] [place], [address] Glucose [Mass/Vol] 93 mg/dL Normal 70-99 [facility] Comment on above: Performed By: #### L 500.2500, L501.2300 ####[facility] [address] [place], [address] Potassium [Moles/Vol] 3.9 mmol/L Normal 3.3-5.1 [facility] Comment on above: Performed By: #### L 500.2500, L501.2300 ####[facility] [address] [place], [address] Sodium [Moles/Vol] 142 mmol/L Normal 133-145 [facility] Comment on above: Performed By: #### L 500.2500, L501.2300 ####[facility] [address] [place], [address] Urea nitrogen [Mass/Vol] 6 mg/dL Normal 4-19 [facility] Comment on above: Performed By: #### L 500.2500, L501.2300 ####[facility] [address] [place], [address] Basophil percentageOrdered B y: Shubhammary jo Blanco on 01-25-2024 Basophils/100 WBC (Bld) 0.7 % 0-1 [facility] CBC W/Diff, Automatedon -2024 Absolute Lymph 0.72 X10 3/uL Low 0.83-4.51 [facility] Comment on above: Performed By: #### L 100.0100 ####[facility] [address] [place], [address] Absolute Neut 3.5 X10 3/uL Normal 2.0-7.7 [facility] Comment on above: Performed By: #### L 100.0100 ####[facility] [address] [place], [address] Basophils/100 WBC (Bld) 0.7 % Normal 0-1 [facility] Comment on above: Performed By: #### L 100.0100 ####[facility] [address] [place], [address] Eosinophils/100 WBC (Bld) 8.9 % High 0-5 [facility] Comment on above: Performed By: #### L 100.0100 ####[facility] [address] [place], [address] Erythrocyte distribution width (RBC) [Ratio] 14.4 % Normal 11.6-14.6 [facility] Comment on above: Performed By: #### L 100.0100 ####[facility] [address] [place], [address] Hematocrit (Bld) [Volume fraction] 31.7 % Low 40-54 [facility] Comment on above: Performed By: #### L 100.0100 ####[facility] [address] [place], [address] Hemoglobin (Bld) [Mass/Vol] 10.5 g/dL Low 13.0-16.5 [facility] Comment on above: Performed By: #### L 100.0100 ####[facility] [address] [place], [address] IG% 0.500 Normal 0.0-0.9 [facility] Comment on above: Result Comment: IG% - Immature Granulocytes (promyelocytes, myelocytes andmetamyelocytes) > 1% indicates that a LEFT SHIFT is Present. Performed By: #### L 100.0100 ####[facility] [address] [place], [address] Lymphocytes/100 WBC (Bld) 13.0 % Low 19-41 [facility] Comment on above: Performed By: #### L 100.0100 ####[facility] [address] [place], [address] MCH (RBC) [Entitic mass] 36.0 pg High 27.0-32.0 [facility] Comment on above: Performed By: #### L 100.0100 ####[facility] [address] [place], [address] MCHC (RBC) [Mass/Vol] 33.1 g/dL Normal 32-36 [facility] Comment on above: Performed By: #### L 100.0100 ####[facility] [address] [place], [address] MCV (RBC) [Entitic vol] 108.6 fL High 80-94 [facility] Comment on above: Performed By: #### L 100.0100 ####[facility] [address] [place], [address] Monocytes/100 WBC (Bld) 14.3 % High 0-10 [facility] Comment on above: Performed By: #### L 100.0100 ####[facility] [address] [place], [address] Neutrophils/100 WBC (Bld) 62.6 % Normal 47-70 [facility] Comment on above: Performed By: #### L 100.0100 ####[facility] [address] [place], [address] Nucleated RBC (Bld) [#/Vol] 0 10*3/uL Normal 0-5 [facility] Comment on above: Performed By: #### L 100.0100 ####[facility] [address] [place], [address] Platelet mean volume (Bld) [Entitic vol] 9.9 fL Normal 6.2-12.0 [facility] Comment on above: Performed By: #### L 100.0100 ####[facility] [address] [place], [address] Platelets (Bld) [#/Vol] 178 10*3/uL Normal 150-450 [facility] Comment on above: Performed By: #### L 100.0100 ####[facility] [address] [place], [address] RBC (Bld) [#/Vol] 2.92 10*6/uL Low 4.6-6.2 [facility] Comment on above: Performed By: #### L 100.0100 ####[facility] [address] [place], [address] RDW SD 56.2 fl High 35.1-43.9 [facility] Comment on above: Performed By: #### L 100.0100 ####[facility] [address] [place], [address] WBC (Bld) [#/Vol] 5.5 10*3/uL Normal 4.4-11.0 [facility] Comment on above: Performed By: #### L 100.0100 ####[facility] [address] [place], [address] Carbon dioxide, total [Moles /volume] in Central venous bloodOrdered By: Shubham Blanco on 01-25-2025 CO2 [Moles/Vol] 22.6 mmol/L 21.0-32.0 [facility] Chloride assayOrdered By: Tessa Blanco on 01-25-2025 Chloride [Moles/Vol] 111 mmol/L High 98-108 [facility] Discharge Instructionon 07-0 Discharge Instruction Normal [facility] Eosinophil percentageOrdered By: Shubham Blanco on 01-25-2025 Eosinophils/100 WBC (Bld) 8.9 % High 0-5 [facility] Erythrocyte distribution wid th ratioOrdered By: Shubham Blanco on 01-25-2025 Erythrocyte distribution width (RBC) [Ratio] 14.4 % 11.6-14.6 [facility] Erythrocyte distribution wid th standard deviationOrdered By: Shubham Blanco on 01-25-2025 Erythrocyte distribution width (RBC) [Ratio] 56.2 fl High 35.1-43.9 [facility] Glomerular filtration rate ( GFR) estimation/1.73 sq m using serum, plasma, or whole bOrdered By: Shubham Blanco on 01-25-2025 GFR/1.73 sq M.predicted among non-blacks MDRD (S/P/Bld) [Vol rate/Area] 97 mL/min/{1.73_m2} >60 [facility] Comment on above: mL/min/1.73m2 CKD-EP I Creatinine Equation (2020) Hematocrit Auto (Bld) [Volum e fraction]Ordered By: Shubham Blanco on 01-25-2025 Hematocrit (Bld) [Volume fraction] 31.7 % Low 40-54 [facility] Hemoglobin measurementOrdere d By: Shubham Blanco on 01-25-2025 Hemoglobin (Bld) [Mass/Vol] 10.5 g/dL Low 13.0-16.5 [facility] Immature granulocytes/100 WB C Auto (Bld)Ordered By: Shubham Blanco on 01-25-2025 Immature granulocytes/100 WBC (Bld) 0.500 % 0.0-0.9 [facility] Comment on above: IG% - Immature Granu locytes (promyelocytes, myelocytes and metamyelocytes) > 1% indicates that a LEFT SHIFT is Present. MCV (mean corpuscular volume ) determinationOrdered By: Shubham Blanco on 01-25-2025 MCV (RBC) [Entitic vol] 108.6 fL High 80-94 [facility] Mean corpuscular hemoglobin (MCH) determinationOrdered By: Shubham Blanco on 01-25-2025 MCH (RBC) [Entitic mass] 36.0 pg High 27.0-32.0 [facility] Mean corpuscular hemoglobin concentration (MCHC) determinationOrdered By: Shubham Blanco on 01-25-2025 MCHC (RBC) [Mass/Vol] 33.1 g/dL 32-36 [facility] Comment on above: Delta: 34.9 on 01/24-403 Mean platelet volume determi nationOrdered By: Shubham Blanco on 01-25-2025 Platelet mean volume (Bld) [Entitic vol] 9.9 fL 6.2-12.0 [facility] Monocyte percentageOrdered B y: Shubham Blanco on 01-25-2025 Monocytes/100 WBC (Bld) 14.3 % High 0-10 [facility] Neutrophil percentageOrdered By: Shubham Blanco on 01-25-2025 Neutrophils/100 WBC (Bld) 62.6 % 47-70 [facility] Nucleated red blood cell per centageOrdered By: Shubham Blanco on 01-25-2025 Nucleated RBC/100 WBC (Bld) [Ratio] 0 % 0-5 [facility] Phosphoruson 01-25-2025 Phosphate [Mass/Vol] 2.8 mg/dL Normal 2.7-4.5 [facility] Comment on above: Performed By: #### L 500.2500, L501.2300 ####[facility] [address] [place], [place], [id number] Platelet countOrdered By: Tessa Blanco on 01-25-2025 Platelets (Bld) [#/Vol] 178 10*3/uL 150-450 [facility] Potassium measurement (mass/ volume)Ordered By: Shubham Blanco on 01-25-2025 Potassium (Unsp spec) [Mass/Vol] 3.9 mmol/L 3.3-5.1 [facility] RBC Auto (Bld) [#/Vol]Ordere d By: Shubham Blanco on 01-25-2025 RBC (Bld) [#/Vol] 2.92 10*6/uL Low 4.6-6.2 [facility] Serum creatinine measurement (mass/volume)Ordered By: Shubham Blanco on 01-25-2025 Creatinine [Mass/Vol] 0.70 mg/dL 0.70-1.20 [facility] Serum glucose measurement (m ass/volume)Ordered By: Shubham Blanco on 01-25-2025 Glucose [Mass/Vol] 93 mg/dL 70-99 [facility] Serum or plasma calcium reid urement (mass/volume)Ordered By: Shubham Blanco on 01-25-2025 Calcium [Mass/Vol] 8.5 mg/dL 7.6-11.0 [facility] Serum or plasma urea nitroge n measurement (mass/volume)Ordered By: Shubham Blanco on 01-25-2025 Urea nitrogen [Mass/Vol] 6 mg/dL 4-19 [facility] Sodium levelOrdered By: Nilda Blanco on 01-25-2025 Sodium [Moles/Vol] 142 mmol/L 133-145 [facility] Urine Cultureon 01-25-2025 [facility] Comments: UA sample of 01/23/2025 Culture exhibits no growth. Normal [facility] Comment on above: Performed By: #### M 100.2200 ####[facility] [address] [place], [address] White blood cell (WBC) count Ordered By: Shubham Blanco on 01-25-2025 WBC (Bld) [#/Vol] 5.5 10*3/uL 4.4-11.0 [facility] Bilirubin, totalOrdered By: Tessa Roca on 01-24-2025 Bilirubin [Mass/Vol] 0.63 mg/dL 0.00-1.30 [facility] CBC W/Diff, Automatedon Absolute Lymph 0.74 X10 3/uL Low 0.83-4.51 [facility] Comment on above: Performed By: #### L 500.4100, L100.0100, L501.9520, L501.2300, L500.4050 ####[facility] [address] [place], [address] Absolute Neut 2.7 X10 3/uL Normal 2.0-7.7 [facility] Comment on above: Performed By: #### L 500.4100, L100.0100, L501.9520, L501.2300, L500.4050 ####[facility] [address] [place], [address] Basophils/100 WBC (Bld) 0.2 % Normal 0-1 [facility] Comment on above: Performed By: #### L 500.4100, L100.0100, L501.9520, L501.2300, L500.4050 ####[facility] [address] [place], [address] Eosinophils/100 WBC (Bld) 10.2 % High 0-5 [facility] Comment on above: Performed By: #### L 500.4100, L100.0100, L501.9520, L501.2300, L500.4050 ####[facility] [address] [place], [address] Erythrocyte distribution width (RBC) [Ratio] 14.0 % Normal 11.6-14.6 [facility] Comment on above: Performed By: #### L 500.4100, L100.0100, L501.9520, L501.2300, L500.4050 ####[facility] [address] [place], [address] Hematocrit (Bld) [Volume fraction] 28.4 % Low 40-54 [facility] Comment on above: Performed By: #### L 500.4100, L100.0100, L501.9520, L501.2300, L500.4050 ####[facility] [address] [place], [address] Hemoglobin (Bld) [Mass/Vol] 9.9 g/dL Low 13.0-16.5 [facility] Comment on above: Performed By: #### L 500.4100, L100.0100, L501.9520, L501.2300, L500.4050 ####[facility] [address] [place], [address] IG% 0.400 Normal 0.0-0.9 [facility] Comment on above: Result Comment: IG% - Immature Granulocytes (promyelocytes, myelocytes andmetamyelocytes) > 1% indicates that a LEFT SHIFT is Present. Performed By: #### L 500.4100, L100.0100, L501.9520, L501.2300, L500.4050 ####[facility] [address] [place], [address] Lymphocytes/100 WBC (Bld) 16.3 % Low 19-41 [facility] Comment on above: Performed By: #### L 500.4100, L100.0100, L501.9520, L501.2300, L500.4050 ####[facility] [address] [place], [address] MCH (RBC) [Entitic mass] 36.8 pg High 27.0-32.0 [facility] Comment on above: Performed By: #### L 500.4100, L100.0100, L501.9520, L501.2300, L500.4050 ####[facility] [address] [place], [address] MCHC (RBC) [Mass/Vol] 34.9 g/dL Normal 32-36 [facility] Comment on above: Performed By: #### L 500.4100, L100.0100, L501.9520, L501.2300, L500.4050 ####[facility] [address] [place], [address] MCV (RBC) [Entitic vol] 105.6 fL High 80-94 [facility] Comment on above: Performed By: #### L 500.4100, L100.0100, L501.9520, L501.2300, L500.4050 ####[facility] [address] [place], [address] Monocytes/100 WBC (Bld) 12.8 % High 0-10 [facility] Comment on above: Performed By: #### L 500.4100, L100.0100, L501.9520, L501.2300, L500.4050 ####[facility] [address] [place], [address] Neutrophils/100 WBC (Bld) 60.1 % Normal 47-70 [facility] Comment on above: Performed By: #### L 500.4100, L100.0100, L501.9520, L501.2300, L500.4050 ####[facility] [address] [place], [address] Nucleated RBC (Bld) [#/Vol] 0 10*3/uL Normal 0-5 [facility] Comment on above: Performed By: #### L 500.4100, L100.0100, L501.9520, L501.2300, L500.4050 ####[facility] [address] [place], [address] Platelet mean volume (Bld) [Entitic vol] 9.6 fL Normal 6.2-12.0 [facility] Comment on above: Performed By: #### L 500.4100, L100.0100, L501.9520, L501.2300, L500.4050 ####[facility] [address] [place], [address] Platelets (Bld) [#/Vol] 144 10*3/uL Low 150-450 [facility] Comment on above: Performed By: #### L 500.4100, L100.0100, L501.9520, L501.2300, L500.4050 ####[facility] [address] [place], [address] RBC (Bld) [#/Vol] 2.69 10*6/uL Low 4.6-6.2 [facility] Comment on above: Performed By: #### L 500.4100, L100.0100, L501.9520, L501.2300, L500.4050 ####[facility] [address] [place], [address] RDW SD 52.3 fl High 35.1-43.9 [facility] Comment on above: Performed By: #### L 500.4100, L100.0100, L501.9520, L501.2300, L500.4050 ####[facility] [address] [place], [address] WBC (Bld) [#/Vol] 4.5 10*3/uL Normal 4.4-11.0 [facility] Comment on above: Performed By: #### L 500.4100, L100.0100, L501.9520, L501.2300, L500.4050 ####[facility] [address] [place], [address] Calculated very low density lipoprotein (VLDL) cholesterol measurementOrdered By: Tessa Roca on 01-24-2025 Calculated very low density lipoprotein (VLDL) cholesterol measurement 21 mg/dL 5-40 [facility] Comprehensive Metabolic Prof ilon 01-24-2025 Albumin [Mass/Vol] 3.5 g/dL Normal 3.4-4.8 [facility] Comment on above: Performed By: #### L 500.4100, L100.0100, L501.9520, L501.2300, L500.4050 ####[facility] [address] [place], [address] Albumin/Globulin [Mass ratio] 1.4 {ratio} Normal 0.9-2.4 [facility] Comment on above: Performed By: #### L 500.4100, L100.0100, L501.9520, L501.2300, L500.4050 ####[facility] [address] [place], [address] ALK PHOS 93 U/L Normal 40-129 [facility] Comment on above: Performed By: #### L 500.4100, L100.0100, L501.9520, L501.2300, L500.4050 ####[facility] [address] [place], [address] ALT [Catalytic activity/Vol] 24 U/L Normal <=46 [facility] Comment on above: Performed By: #### L 500.4100, L100.0100, L501.9520, L501.2300, L500.4050 ####[facility] [address] [place], [address] AST [Catalytic activity/Vol] 33 U/L Normal <=37 [facility] Comment on above: Performed By: #### L 500.4100, L100.0100, L501.9520, L501.2300, L500.4050 ####[facility] [address] [place], [address] Bilirubin [Mass/Vol] 0.63 mg/dL Normal 0.00-1.30 [facility] Comment on above: Performed By: #### L 500.4100, L100.0100, L501.9520, L501.2300, L500.4050 ####[facility] [address] [place], [address] BUN/CRE 15.8 RATIO Normal 10-20 [facility] Comment on above: Performed By: #### L 500.4100, L100.0100, L501.9520, L501.2300, L500.4050 ####[facility] [address] [place], [address] Calcium [Mass/Vol] 8.5 mg/dL Normal 7.6-11.0 [facility] Comment on above: Performed By: #### L 500.4100, L100.0100, L501.9520, L501.2300, L500.4050 ####[facility] [address] [place], [address] Chloride [Moles/Vol] 109 mmol/L High 98-108 [facility] Comment on above: Performed By: #### L 500.4100, L100.0100, L501.9520, L501.2300, L500.4050 ####[facility] [address] [place], [address] CO2 [Moles/Vol] 22.5 mmol/L Normal 21.0-32.0 [facility] Comment on above: Performed By: #### L 500.4100, L100.0100, L501.9520, L501.2300, L500.4050 ####[facility] [address] [place], [address] Creatinine [Mass/Vol] 0.68 mg/dL Low 0.70-1.20 [facility] Comment on above: Performed By: #### L 500.4100, L100.0100, L501.9520, L501.2300, L500.4050 ####[facility] [address] [place], [address] ECRCL 93.09 ml/min Normal 50-250 [facility] Comment on above: Performed By: #### L 500.4100, L100.0100, L501.9520, L501.2300, L500.4050 ####[facility] [address] [place], [address] GAP 9 Normal 5-15 [facility] Comment on above: Performed By: #### L 500.4100, L100.0100, L501.9520, L501.2300, L500.4050 ####[facility] [address] [place], [address] GFR/1.73 sq M.predicted among non-blacks MDRD (S/P/Bld) [Vol rate/Area] 98 mL/min/{1.73_m2} Normal >60 [facility] Comment on above: Result Comment: mL/m in/1.73m2 CKD-EPI Creatinine Equation (2020) Performed By: #### L 500.4100, L100.0100, L501.9520, L501.2300, L500.4050 ####[facility] [address] [place], [address] Globulin (S) [Mass/Vol] 2.5 g/dL Normal 2.2-4.2 [facility] Comment on above: Performed By: #### L 500.4100, L100.0100, L501.9520, L501.2300, L500.4050 ####[facility] [address] [place], [address] Glucose [Mass/Vol] 90 mg/dL Normal 70-99 [facility] Comment on above: Performed By: #### L 500.4100, L100.0100, L501.9520, L501.2300, L500.4050 ####[facility] [address] [place], [address] Potassium [Moles/Vol] 3.5 mmol/L Normal 3.3-5.1 [facility] Comment on above: Performed By: #### L 500.4100, L100.0100, L501.9520, L501.2300, L500.4050 ####[facility] [address] [place], [address] Sodium [Moles/Vol] 141 mmol/L Normal 133-145 [facility] Comment on above: Performed By: #### L 500.4100, L100.0100, L501.9520, L501.2300, L500.4050 ####[facility] [address] [place], [address] T PROT 6.0 g/dL Normal 5.9-8.4 [facility] Comment on above: Performed By: #### L 500.4100, L100.0100, L501.9520, L501.2300, L500.4050 ####[facility] [address] [place], [address] Urea nitrogen [Mass/Vol] 11 mg/dL Normal 4-19 [facility] Comment on above: Performed By: #### L 500.4100, L100.0100, L501.9520, L501.2300, L500.4050 ####[facility] [address] [place], [address] Folate [Mass/volume] in Seru m or PlasmaOrdered By: Tessa Roca on 07-04-2025 Folate [Mass/Vol] 23.30 ng/mL 4.60-34.80 [facility] Folates,Serum (Folic Acid)on 01-24-2025 FOLATES,SERUM 23.30 ng/mL Normal 4.60-34.80 [facility] Comment on above: Performed By: #### L 501.5200, L506.0200 ####[facility] [address] [place], [address] HH, Hemoglobin AND Hematocri ton 01-24-2025 Hematocrit (Bld) [Volume fraction] 32.8 % Low 40-54 [facility] Comment on above: Performed By: #### L 100.0600 ####[facility] [address] [place], [address] Hemoglobin (Bld) [Mass/Vol] 11.1 g/dL Low 13.0-16.5 [facility] Comment on above: Performed By: #### L 100.0600 ####[facility] [address] [place], [address] Hematocrit (Bld) [Volume fraction] 31.9 % Low 40-54 [facility] Comment on above: Performed By: #### L 100.0600 ####[facility] [address] [place], [address] Hemoglobin (Bld) [Mass/Vol] 11.1 g/dL Low 13.0-16.5 [facility] Comment on above: Performed By: #### L 100.0600 ####[facility] [address] [place], [address] International normalized rat io (INR) calculationOrdered By: Shubham Blanco on 01-24-2025 INR Coag (Bld) [Relative time] 1.0 {INR} [facility] Iron+Iron Binding Capacityon 01-24-2025 Iron [Mass/Vol] 91 ug/dL Normal 65-175 [facility] Comment on above: Performed By: #### L 503.6030, L503.6550, L501.9985, L503.0106 ####[facility] [address] [place], [address] IRON SATURATION 34.0 Normal 9-55 [facility] Comment on above: Performed By: #### L 503.6030, L503.6550, L501.9985, L503.0106 ####[facility] [address] [place], [address] TIBC 270 ug/dL Normal 250-450 [facility] Comment on above: Performed By: #### L 503.6030, L503.6550, L501.9985, L503.0106 ####[facility] [address] [place], [address] UIBC 179 ug/dL Low 228-428 [facility] Comment on above: Performed By: #### L 503.6030, L503.6550, L501.9985, L503.0106 ####[facility] [address] [place], [address] LDL calc ser/plasOrdered By: Tessa Roca on 01-24-2025 Cholesterol in LDL [Mass/Vol] 62 mg/dL [facility] Comment on above: Ckcbdxduzy=033-475 m g/dL & Higher Jefg=891 mg/dL or greater Laboratory - Chemistry and C hemistry - challengeOrdered By: Tessa Roca on 01-24-2025 AST [Catalytic activity/Vol] 33 U/L <38 [facility] Lipid Profileon 01-24-2025 CHOL:HDL 3.[address] [facility] Comment on above: Performed By: #### L 500.4100, L100.0100, L501.9520, L501.2300, L500.4050 ####[facility] [address] [place], [address] Cholesterol [Mass/Vol] 120 mg/dL Normal <=200 [facility] Comment on above: Result Comment: Chol esterol level, Desirable <200 mg/dLBorderline high cholesterol 200-239 mg/dLHigh cholesterol >=240 mg/dLRecommendations of the NCEP Adult Treatment Panel for thefollowing risk-cutoff thresholds for the [place] American[place]. Performed By: #### L 500.4100, L100.0100, L501.9520, L501.2300, L500.4050 ####[facility] [address] [place], [address] Cholesterol in HDL [Mass/Vol] 37 mg/dL Low [facility] Comment on above: Result Comment: Jayleen onal Cholesterol Education Program (NCEP) guidelines:<40 mg/dL: Low HDL-cholesterol (major risk factor for CHD)>= 60 mg/dL: High HDL-cholesterol (negative risk factor forCHD)HDL-cholesterol is affected by a number of factors, e.g.smoking, exercise, hormones, sex and age. Performed By: #### L 500.4100, L100.0100, L501.9520, L501.2300, L500.4050 ####[facility] [address] [place], [address] Cholesterol in LDL [Mass/Vol] 62 mg/dL Normal [facility] Comment on above: Result Comment: Bord pujmmq=936-818 mg/dL Higher Djrd=038 mg/dL or greater Performed By: #### L 500.4100, L100.0100, L501.9520, L501.2300, L500.4050 ####[facility] [address] [place], [address] Cholesterol in VLDL [Mass/Vol] 21 mg/dL Normal 5-40 [facility] Comment on above: Performed By: #### L 500.4100, L100.0100, L501.9520, L501.2300, L500.4050 ####[facility] [address] [place], [address] Triglyceride [Mass/Vol] 106 mg/dL Normal [facility] Comment on above: Result Comment: The drugs N-Acetylcysteine and Metamizole may falselydepress this assay.Normal range: <150 mg/dLBorderline High: 150-199 mg/dLHigh: 200-499 mg/dLVery High: >500 mg/dL Performed By: #### L 500.4100, L100.0100, L501.9520, L501.2300, L500.4050 ####[facility] [address] [place], [address] Phosphoruson 01-24-2025 Phosphate [Mass/Vol] 2.9 mg/dL Normal 2.7-4.5 [facility] Comment on above: Performed By: #### L 500.4100, L100.0100, L501.9520, L501.2300, L500.4050 ####[facility] [address] [place], [address] Prothrombin Time w/INRon INR Coag (PPP) [Relative time] 1.0 {INR} Normal [facility] Comment on above: Performed By: #### L 300.3900 ####[facility] [address] [place], [address] PT Coag (PPP) [Time] 13.4 s Normal 11.7-14.9 [facility] Comment on above: Performed By: #### L 300.3900 ####[facility] [address] [place], [address] Prothrombin timeOrdered By: Shubham Blanco on 01-24-2025 PT Coag (PPP) [Time] 13.4 s 11.7-14.9 [facility] Screening total cholesterol/ high density lipoprotein (HDL) cholesterol ratioOrdered By: Tessa Roca on 01-24-2025 Cholesterol.total/Cho lesterol in HDL [Mass ratio] 3.25 {ratio} [facility] Serum globulin measurementOr dered By: Tessa Roca on 01-24-2025 Globulin (S) [Mass/Vol] 2.5 g/dL 2.2-4.2 [facility] Serum or plasma alanine guevara otransferase (ALT) measurementOrdered By: Tessa Roca on 01-24-2025 ALT [Catalytic activity/Vol] 24 U/L <47 [facility] Serum or plasma albumin reid urement (mass/volume)Ordered By: Tessa Roca on 01-24-2025 Albumin [Mass/Vol] 3.5 g/dL 3.4-4.8 [facility] Serum or plasma albumin/glob ulin mass ratioOrdered By: Tessa Roca on 01-24-2025 Albumin/Globulin [Mass ratio] 1.4 {ratio} 0.9-2.4 [facility] Serum or plasma alkaline adelfo sphatase measurementOrdered By: Tessa Roca on 01-24-2025 ALP [Catalytic activity/Vol] 93 U/L 40-129 [facility] Serum or plasma cholesterol in HDL measurement (mass/volume)Ordered By: Tessa Roca on 01-24-2025 Cholesterol in HDL [Mass/Vol] 37 mg/dL Low >40 [facility] Comment on above: National Cholesterol Education Program (NCEP) guidelines:<40 mg/dL: Low HDL-cholesterol (major risk factor for CHD)>= 60 mg/dL: High HDL-cholesterol (negative risk factor for CHD)HDL-cholesterol is affected by a number of factors, e.g. smoking, exercise, hormones, sex and age. Serum or plasma cholesterol measurement (mass/volume)Ordered By: Tessa Roca on 01-24-2025 Cholesterol [Mass/Vol] 120 mg/dL <201 [facility] Comment on above: Cholesterol level, D esirable <200 mg/dLBorderline high cholesterol 200-239 mg/dLHigh cholesterol >=240 mg/dLRecommendations of the NCEP Adult Treatment Panel for the following risk-cutoff thresholds for the [place] population. Stool Occult Blood iFOBon STOB Normal [facility] Comment on above: Performed By: #### M 100.7900 ####[facility] [address] [place], [place], [id number] Stool gastrointestinal hemog lobin detection by immunologic methodOrdered By: Shubham Blanco on 01-24-2025 Lower GI hemoglobin IA Ql (Stl) Positive Abnormal [facility] TSH DL <= 0.005 mIU/L QnOrde red By: Tessa Roca on 01-24-2025 TSH Qn 1.920 uIU/mL 0.300-4.200 [facility] Thyroid Stim Hormone (TSH)on 01-24-2025 TSH 1.920 uIU/mL Normal 0.300-4.200 [facility] Comment on above: Performed By: #### L 500.4100, L100.0100, L501.9520, L501.2300, L500.4050 ####[facility] [address] [place], [address] Total proteinOrdered By: Hugh Roca on 01-24-2025 Protein [Mass/Vol] 6.0 g/dL 5.9-8.4 [facility] Triglycerides measurementOrd ered By: Tessa Roca on 01-24-2025 Triglyceride [Mass/Vol] 106 mg/dL <199 [facility] Comment on above: The drugs N-Acetylcy steine and Metamizole may falsely depress this assay. Normal range: <150 mg/dLBorderline High: 150-199 mg/dLHigh: 200-499 mg/dLVery High: >500 mg/dL 25(OH)D3 Richard-prosperon 2024 25-hydroxyvitamin D3 [Mass/Vol] 41.0 ng/mL Normal 31.0-80.0 [facility] Comment on above: Order Comment: Speci men Type: URINE SPECIMEN Ordering Facility: [facility] Address: [address] [place] [address] Result Comment: Clas sification of 25 [place] Vitamin D status: Deficiency/Insufficiency: < or = 30 ng/ml. Sufficiency/Optimal Levels: 31-80 ng/mL Toxicity: > 100 ng/mL. Test performed by chemiluminescent immunoassay. Performed By: #### U [id number] #### [facility] CLIA [id number] [address] [place] [address] [id number] [place] [address] [place] [facility] Absolute lymphocyte countOrd ered By: ED PROVIDER on 01-23-2025 Lymphocytes Auto (Unsp spec) [#/Vol] 0.86 10*3/uL 0.83-4.51 [facility] Absolute neutrophil countOrd ered By: ED PROVIDER on 01-23-2025 Neutrophils (Bld) [#/Vol] 3.1 10*3/uL 2.0-7.7 [facility] Anion gap in Serum or Plasma Ordered By: ED PROVIDER on 01-23-2025 Anion gap [Moles/Vol] 13 mmol/L 5-15 [facility] Automated lymphocyte count a s percentage of total leukocytesOrdered By: ED PROVIDER on 01-23-2025 Lymphocytes/100 WBC Auto (Unsp spec) 16.0 % Low 19-41 [facility] BUN/creatinine ratioOrdered By: ED PROVIDER on 01-23-2025 Urea nitrogen/Creatinine [Mass ratio] 15.1 mg/mg 10-20 [facility] Basophil percentageOrdered B y: ED PROVIDER on 01-23-2025 Basophils/100 WBC (Bld) 0.7 % 0-1 [facility] Bilirubin Test strip Ql (U)O rdered By: Jae Mcclure on 01-23-2025 Bilirubin Ql (U) Negative Negative [facility] Bilirubin, totalOrdered By: ED PROVIDER on 01-23-2025 Bilirubin [Mass/Vol] 0.74 mg/dL 0.00-1.30 [facility] C1 ESTERASE INHIB FUon 01-23 C1 ESTERASE INHIBITOR FUNCTION 102 % Normal >=41 [facility] Comment on above: Order Comment: Speci men Type: BLOOD SPECIMEN Ordering Facility: [facility] Address: [address] [place] [address] Result Comment: The concentration of functional C1 esterase inhibitor (C1-INH) is reported as the percentage of the mean level in normal specimens. Concentrations greater than or equal to 68 percent mean normal are considered normal. INTERPRETIVE INFORMATION: W-7-Mdcmqvoh Inhib. Functional 68% or greater ........ Normal 41% - 67% ............. Indeterminate 40% or less ........... Abnormal Performed By: [employer] [address] [place] [address] Medical Certification Specialist: King Hernández MD, PhD CLIA Number: [id number] Performed By: #### 1 0886-0, 94379-7, LIPNF, 3083-1 #### [facility] CLIA [id number] [address] [place] [address] [place] CBC W Auto Differential pane l (Bld)on 01-23-2025 Basophils (Bld) [#/Vol] 0.05 10*3/uL Normal <0.11 [facility] Comment on above: Order Comment: Speci men Type: BLOOD SPECIMEN Ordering Facility: [facility] Address: [address] [place] [address] Performed By: #### 1 0886-0, 21631-1, LIPNF, 3083-1 #### [facility] CLIA [id number] [address] [place] [address] [place] Basophils/100 WBC (Bld) 0.8 % Normal [facility] Comment on above: Order Comment: Speci men Type: BLOOD SPECIMEN Ordering Facility: [facility] Address: [address] [place] [address] Performed By: #### 1 0886-0, 14104-8, LIPNF, 3083-1 #### [facility] CLIA [id number] [address] [place] [address] [place] Differential cell count method Nom (Bld) Auto Normal [facility] Comment on above: Order Comment: Speci men Type: BLOOD SPECIMEN Ordering Facility: [facility] Address: [address] [place] [address] Performed By: #### 1 0886-0, 21028-3, LIPNF, 308-1 #### [facility] CLIA [id number] [address] [place] [address] [place] Eosinophils (Bld) [#/Vol] 0.67 10*3/uL High <0.46 [facility] Comment on above: Order Comment: Speci men Type: BLOOD SPECIMEN Ordering Facility: [facility] Address: [address] [place] [address] Performed By: #### 1 0886-0, 52356-2, LIPNF, 3083-1 #### [facility] CLIA [id number] [address] [place] [address] [place] Eosinophils/100 WBC (Bld) 11.1 % Normal [facility] Comment on above: Order Comment: Speci men Type: BLOOD SPECIMEN Ordering Facility: [facility] Address: [address] [place] [address] Performed By: #### 1 0886-0, 73620-9, LIPNF, 308-1 #### [facility] CLIA [id number] [address] [place] [address] [place] Erythrocyte distribution width (RBC) [Ratio] 13.8 % Normal 11.5-15.0 [facility] Comment on above: Order Comment: Speci men Type: BLOOD SPECIMEN Ordering Facility: [facility] Address: [address] [place] [address] Performed By: #### 1 0886-0, 63631-4, LIPNF, 3083-1 #### [facility] CLIA [id number] [address] [place] [address] [place] Hematocrit (Bld) [Volume fraction] 31.2 % Low 39.0-51.0 [facility] Comment on above: Order Comment: Speci men Type: BLOOD SPECIMEN Ordering Facility: [facility] Address: [address] [place] [address] Performed By: #### 1 0886-0, 14836-4, LIPNF, 308-1 #### [facility] CLIA [id number] [address] [place] [address] [place] Hemoglobin (Bld) [Mass/Vol] 10.3 g/dL Low 13.0-17.0 [facility] Comment on above: Order Comment: Speci men Type: BLOOD SPECIMEN Ordering Facility: [facility] Address: [address] [place] [address] Performed By: #### 1 0886-0, 59332-5, LIPNF, 3084-1 #### [facility] CLIA [id number] [address] [place] [address] [place] Immature granulocytes (Bld) [#/Vol] 0.03 10*3/uL Normal <0.10 [facility] Comment on above: Order Comment: Speci men Type: BLOOD SPECIMEN Ordering Facility: [facility] Address: [address] [place] [address] Performed By: #### 1 0886-0, 00197-1, LIPNF, 3084-1 #### [facility] CLIA [id number] [address] [place] [address] [place] Immature granulocytes/100 WBC (Bld) 0.5 % Normal [facility] Comment on above: Order Comment: Speci men Type: BLOOD SPECIMEN Ordering Facility: [facility] Address: [address] [place] [address] Performed By: #### 1 0886-0, 54337-3, LIPNF, 3084-1 #### [facility] CLIA [id number] [address] [place] [address] [place] Lymphocytes (Bld) [#/Vol] 0.80 10*3/uL Low 1.00-4.00 [facility] Comment on above: Order Comment: Speci men Type: BLOOD SPECIMEN Ordering Facility: [facility] Address: [address] [place] [address] Performed By: #### 1 0886-0, 35520-8, LIPNF, 3084-1 #### [facility] CLIA [id number] [address] [place] [address] [place] Lymphocytes/100 WBC (Bld) 13.3 % Normal [facility] Comment on above: Order Comment: Speci men Type: BLOOD SPECIMEN Ordering Facility: [facility] Address: [address] [place] [address] Performed By: #### 1 0886-0, 39042-7, LIPNF, 3083-1 #### [facility] CLIA [id number] [address] [place] [address] [place] MCH (RBC) [Entitic mass] 35.0 pg High 26.0-34.0 [facility] Comment on above: Order Comment: Speci men Type: BLOOD SPECIMEN Ordering Facility: [facility] Address: [address] [place] [address] Performed By: #### 1 0886-0, 61352-6, LIPNF, 3083-1 #### [facility] CLIA [id number] [address] [place] [address] [place] MCHC (RBC) [Mass/Vol] 33.0 g/dL Normal 30.5-36.0 [facility] Comment on above: Order Comment: Speci men Type: BLOOD SPECIMEN Ordering Facility: [facility] Address: [address] [place] [address] Performed By: #### 1 0886-0, 80691-1, LIPNF, 3083-1 #### [facility] CLIA [id number] [address] [place] [address] [place] MCV (RBC) [Entitic vol] 106.1 fL High 80.0-100.0 [facility] Comment on above: Order Comment: Speci men Type: BLOOD SPECIMEN Ordering Facility: [facility] Address: [address] [place] [address] Performed By: #### 1 0886-0, 66051-2, LIPNF, 308-1 #### [facility] CLIA [id number] [address] [place] [address] [place] Monocytes (Bld) [#/Vol] 0.77 10*3/uL Normal <0.87 [facility] Comment on above: Order Comment: Speci men Type: BLOOD SPECIMEN Ordering Facility: [facility] Address: [address] [place] [address] Performed By: #### 1 0886-0, 52978-3, LIPNF, 3083-1 #### [facility] CLIA [id number] [address] [place] [address] [place] Monocytes/100 WBC (Bld) 12.8 % Normal [facility] Comment on above: Order Comment: Speci men Type: BLOOD SPECIMEN Ordering Facility: [facility] Address: [address] [place] [address] Performed By: #### 1 0886-0, 11246-8, LIPNF, 3083-1 #### [facility] CLIA [id number] [address] [place] [address] [place] Neutrophils (Bld) [#/Vol] 3.71 10*3/uL Normal 1.45-7.50 [facility] Comment on above: Order Comment: Speci men Type: BLOOD SPECIMEN Ordering Facility: [facility] Address: [address] [place] [address] Performed By: #### 1 0886-0, 69683-4, LIPNF, 3083-1 #### [facility] CLIA [id number] [address] [place] [address] [place] Neutrophils/100 WBC (Bld) 61.5 % Normal [facility] Comment on above: Order Comment: Speci men Type: BLOOD SPECIMEN Ordering Facility: [facility] Address: [address] [place] [address] Performed By: #### 1 0886-0, 60836-3, LIPNF, 308-1 #### [facility] CLIA [id number] [address] [place] [address] [place] Nucleated RBC (Bld) [#/Vol] 10*3/uL Normal <0.01 [facility] Comment on above: Order Comment: Speci men Type: BLOOD SPECIMEN Ordering Facility: [facility] Address: [address] [place] [address] Performed By: #### 1 0886-0, 43995-4, LIPNF, 308-1 #### [facility] CLIA [id number] [address] [place] [address] [place] Nucleated RBC/100 WBC (Bld) [Ratio] 0.0 /100 WBC Normal [facility] Comment on above: Order Comment: Speci men Type: BLOOD SPECIMEN Ordering Facility: [facility] Address: [address] [place] [address] Performed By: #### 1 0886-0, 36718-1, LIPNF, 3084-1 #### [facility] CLIA [id number] [address] [place] [address] [place] Platelet mean volume (Bld) [Entitic vol] 10.6 fL Normal 9.0-12.7 [facility] Comment on above: Order Comment: Speci men Type: BLOOD SPECIMEN Ordering Facility: [facility] Address: [address] [place] [address] Performed By: #### 1 0886-0, 25274-1, LIPNF, 3083-1 #### [facility] CLIA [id number] [address] [place] [address] [place] Platelets (Bld) [#/Vol] 185 10*3/uL Normal 150-400 [facility] Comment on above: Order Comment: Speci men Type: BLOOD SPECIMEN Ordering Facility: [facility] Address: [address] [place] [address] Performed By: #### 1 0886-0, 41011-4, LIPNF, 308-1 #### [facility] CLIA [id number] [address] [place] [address] [place] RBC (Bld) [#/Vol] 2.94 10*6/uL Low 4.20-6.00 [facility] Comment on above: Order Comment: Speci men Type: BLOOD SPECIMEN Ordering Facility: [facility] Address: [address] [place] [address] Performed By: #### 1 0886-0, 73522-9, LIPNF, 3084-1 #### [facility] CLIA [id number] [address] [place] [address] [place] WBC (Bld) [#/Vol] 6.03 10*3/uL Normal 3.70-11.00 [facility] Comment on above: Order Comment: Speci men Type: BLOOD SPECIMEN Ordering Facility: [facility] Address: [address] [place] [address] Performed By: #### 1 0886-0, 58864-1, LIPNF, 3084-1 #### [facility] CLIA [id number] [address] [place] [address] [place] CBC W/Diff, Automatedon 07-0 3-2025 Absolute Lymph 0.86 X10 3/uL Normal 0.83-4.51 [facility] Comment on above: Performed By: #### L 500.4050, L501.2450, L100.0100 ####[facility] [address] [place], [address] Absolute Neut 3.1 X10 3/uL Normal 2.0-7.7 [facility] Comment on above: Performed By: #### L 500.4050, L501.2450, L100.0100 ####[facility] [address] [place], [address] Basophils/100 WBC (Bld) 0.7 % Normal 0-1 [facility] Comment on above: Performed By: #### L 500.4050, L501.2450, L100.0100 ####[facility] [address] [place], [address] Eosinophils/100 WBC (Bld) 10.6 % High 0-5 [facility] Comment on above: Performed By: #### L 500.4050, L501.2450, L100.0100 ####[facility] [address] [place], [address] Erythrocyte distribution width (RBC) [Ratio] 13.8 % Normal 11.6-14.6 [facility] Comment on above: Performed By: #### L 500.4050, L501.2450, L100.0100 ####[facility] [address] [place], [address] Hematocrit (Bld) [Volume fraction] 31.0 % Low 40-54 [facility] Comment on above: Performed By: #### L 500.4050, L501.2450, L100.0100 ####[facility] [address] [place], [address] Hemoglobin (Bld) [Mass/Vol] 10.5 g/dL Low 13.0-16.5 [facility] Comment on above: Performed By: #### L 500.4050, L501.2450, L100.0100 ####[facility] [address] [place], [address] IG% 0.700 Normal 0.0-0.9 [facility] Comment on above: Result Comment: IG% - Immature Granulocytes (promyelocytes, myelocytes andmetamyelocytes) > 1% indicates that a LEFT SHIFT is Present. Performed By: #### L 500.4050, L501.2450, L100.0100 ####[facility] [address] [place], [address] Lymphocytes/100 WBC (Bld) 16.0 % Low 19-41 [facility] Comment on above: Performed By: #### L 500.4050, L501.2450, L100.0100 ####[facility] [address] [place], [address] MCH (RBC) [Entitic mass] 36.0 pg High 27.0-32.0 [facility] Comment on above: Performed By: #### L 500.4050, L501.2450, L100.0100 ####[facility] [address] [place], [address] MCHC (RBC) [Mass/Vol] 33.9 g/dL Normal 32-36 [facility] Comment on above: Performed By: #### L 500.4050, L501.2450, L100.0100 ####[facility] [address] [place], [address] MCV (RBC) [Entitic vol] 106.2 fL High 80-94 [facility] Comment on above: Performed By: #### L 500.4050, L501.2450, L100.0100 ####[facility] [address] [place], [address] Monocytes/100 WBC (Bld) 13.7 % High 0-10 [facility] Comment on above: Performed By: #### L 500.4050, L501.2450, L100.0100 ####[facility] [address] [place], [address] Neutrophils/100 WBC (Bld) 58.3 % Normal 47-70 [facility] Comment on above: Performed By: #### L 500.4050, L501.2450, L100.0100 ####[facility] [address] [place], [address] Nucleated RBC (Bld) [#/Vol] 0 10*3/uL Normal 0-5 [facility] Comment on above: Performed By: #### L 500.4050, L501.2450, L100.0100 ####[facility] [address] [place], [address] Platelet mean volume (Bld) [Entitic vol] 9.5 fL Normal 6.2-12.0 [facility] Comment on above: Performed By: #### L 500.4050, L501.2450, L100.0100 ####[facility] [address] [place], [address] Platelets (Bld) [#/Vol] 167 10*3/uL Normal 150-450 [facility] Comment on above: Performed By: #### L 500.4050, L501.2450, L100.0100 ####[facility] [address] [place], [address] RBC (Bld) [#/Vol] 2.92 10*6/uL Low 4.6-6.2 [facility] Comment on above: Performed By: #### L 500.4050, L501.2450, L100.0100 ####[facility] [address] [place], [address] RDW SD 53.4 fl High 35.1-43.9 [facility] Comment on above: Performed By: #### L 500.4050, L501.2450, L100.0100 ####[facility] [address] [place], [address] WBC (Bld) [#/Vol] 5.4 10*3/uL Normal 4.4-11.0 [facility] Comment on above: Performed By: #### L 500.4050, L501.2450, L100.0100 ####[facility] [address] [place], [address] Carbon dioxide, total [Moles /volume] in Central venous bloodOrdered By: ED PROVIDER on 01-23-2025 CO2 [Moles/Vol] 19.9 mmol/L Low 21.0-32.0 [facility] Chloride assayOrdered By: ED PROVIDER on 01-23-2025 Chloride [Moles/Vol] 107 mmol/L 98-108 [facility] Comprehensive Metabolic Prof ilon 01-23-2025 Albumin [Mass/Vol] 3.8 g/dL Normal 3.4-4.8 [facility] Comment on above: Performed By: #### L 500.4050, L501.2450, L100.0100 ####[facility] [address] [place], [address] Albumin/Globulin [Mass ratio] 1.3 {ratio} Normal 0.9-2.4 [facility] Comment on above: Performed By: #### L 500.4050, L501.2450, L100.0100 ####[facility] [address] [place], [address] ALK PHOS 103 U/L Normal 40-129 [facility] Comment on above: Performed By: #### L 500.4050, L501.2450, L100.0100 ####[facility] [address] [place], [address] ALT [Catalytic activity/Vol] 30 U/L Normal <=46 [facility] Comment on above: Performed By: #### L 500.4050, L501.2450, L100.0100 ####[facility] [address] [place], [address] AST [Catalytic activity/Vol] 35 U/L Normal <=37 [facility] Comment on above: Performed By: #### L 500.4050, L501.2450, L100.0100 ####[facility] [address] [place], [address] Bilirubin [Mass/Vol] 0.74 mg/dL Normal 0.00-1.30 [facility] Comment on above: Performed By: #### L 500.4050, L501.2450, L100.0100 ####[facility] [address] [place], [address] BUN/CRE 15.1 RATIO Normal 10-20 [facility] Comment on above: Performed By: #### L 500.4050, L501.2450, L100.0100 ####[facility] [address] [place], [address] Calcium [Mass/Vol] 9.0 mg/dL Normal 7.6-11.0 [facility] Comment on above: Performed By: #### L 500.4050, L501.2450, L100.0100 ####[facility] [address] [place], [address] Chloride [Moles/Vol] 107 mmol/L Normal 98-108 [facility] Comment on above: Performed By: #### L 500.4050, L501.2450, L100.0100 ####[facility] [address] [place], [address] CO2 [Moles/Vol] 19.9 mmol/L Low 21.0-32.0 [facility] Comment on above: Performed By: #### L 500.4050, L501.2450, L100.0100 ####[facility] [address] [place], [address] Creatinine [Mass/Vol] 0.82 mg/dL Normal 0.70-1.20 [facility] Comment on above: Performed By: #### L 500.4050, L501.2450, L100.0100 ####[facility] [address] [place], [address] ECRCL 91.26 ml/min Normal 50-250 [facility] Comment on above: Performed By: #### L 500.4050, L501.2450, L100.0100 ####[facility] [address] [place], [address] GAP 13 Normal 5-15 [facility] Comment on above: Performed By: #### L 500.4050, L501.2450, L100.0100 ####[facility] [address] [place], [address] GFR/1.73 sq M.predicted among non-blacks MDRD (S/P/Bld) [Vol rate/Area] 92 mL/min/{1.73_m2} Normal >60 [facility] Comment on above: Result Comment: mL/m in/1.73m2 CKD-EPI Creatinine Equation (2020) Performed By: #### L 500.4050, L501.2450, L100.0100 ####[facility] [address] [place], [address] Globulin (S) [Mass/Vol] 2.9 g/dL Normal 2.2-4.2 [facility] Comment on above: Performed By: #### L 500.4050, L501.2450, L100.0100 ####[facility] [address] [place], [address] Glucose [Mass/Vol] 100 mg/dL High 70-99 [facility] Comment on above: Performed By: #### L 500.4050, L501.2450, L100.0100 ####[facility] [address] [place], [address] Potassium [Moles/Vol] 3.8 mmol/L Normal 3.3-5.1 [facility] Comment on above: Performed By: #### L 500.4050, L501.2450, L100.0100 ####[facility] [address] [place], [address] Sodium [Moles/Vol] 140 mmol/L Normal 133-145 [facility] Comment on above: Performed By: #### L 500.4050, L501.2450, L100.0100 ####[facility] [address] [place], [address] T PROT 6.6 g/dL Normal 5.9-8.4 [facility] Comment on above: Performed By: #### L 500.4050, L501.2450, L100.0100 ####[facility] [address] [place], [address] Urea nitrogen [Mass/Vol] 12 mg/dL Normal 4-19 [facility] Comment on above: Performed By: #### L 500.4050, L501.2450, L100.0100 ####[facility] [address] [place], [place], [address] ESR Westergren method (Bld) [Velocity]on 01-23-2025 ESR (Bld) [Velocity] 30 mm/h High 0-15 [facility] Comment on above: Order Comment: Speci men Type: BLOOD SPECIMEN Ordering Facility: [facility] Address: [address] [place] [address] Performed By: #### 1 0886-0, 85677-3, LIPNF, 3084-1 #### [facility] CLIA [id number] [address] [place] [address] [place] Emergency Department Summary on 01-23-2025 Emergency Department Summary Normal [facility] Eosinophil percentageOrdered By: ED PROVIDER on 01-23-2025 Eosinophils/100 WBC (Bld) 10.6 % High 0-5 [facility] Erythrocyte distribution wid th ratioOrdered By: ED PROVIDER on 01-23-2025 Erythrocyte distribution width (RBC) [Ratio] 13.8 % 11.6-14.6 [facility] Erythrocyte distribution wid th standard deviationOrdered By: ED PROVIDER on 01-23-2025 Erythrocyte distribution width (RBC) [Ratio] 53.4 fl High 35.1-43.9 [facility] Ferritinon 01-23-2025 Ferritin [Mass/Vol] 101 ng/mL Normal 37-417 [facility] Comment on above: Performed By: #### L 503.6030, L503.6550, L501.9985, L503.0106 ####[facility] [address] [place], [address] GALACTOSE QT, PLASMAon 01-23 GALACTOSE QT, PLASMA 0.7 mg/dL Normal <2.0 [facility] Comment on above: Order Comment: Speci men Type: BLOOD SPECIMENOrdering Facility: [facility] Address: [address], [place] [address] Result Comment: ADDITIONAL INFORMATION This test was developed and its performance characteristics determined by [facility] in a manner consistent with CLIA requirements. This test has not been cleared or approved by the U.S. Food and Drug Administration. Test Performed by: [facility] [place] [address] [employer] Representative: Elías Horta Ph.D.; CLIA# [id number] Performed By: #### G REYMUNDO ####[facility] LABCLIA [id number] [place], [place] [address] Glomerular filtration rate ( GFR) estimation/1.73 sq m using serum, plasma, or whole bOrdered By: ED PROVIDER on 01-23-2025 GFR/1.73 sq M.predicted among non-blacks MDRD (S/P/Bld) [Vol rate/Area] 92 mL/min/{1.73_m2} >60 [facility] Comment on above: mL/min/1.73m2 CKD-EP I Creatinine Equation (2020) H AND P Exam - [place] 01-23-2025 H&P Exam - Hospitalist Normal [facility] Hematocrit Auto (Bld) [Volum e fraction]Ordered By: ED PROVIDER on 01-23-2025 Hematocrit (Bld) [Volume fraction] 31.0 % Low 40-54 [facility] Hemoglobin A1con 01-23-2025 HbA1c (Bld) [Mass fraction] 5.5 % Normal <=5.6 [facility] Comment on above: Result Comment: Norm al < 5.7 % Prediabetic 5.7 - 6.4 % Diabetic >or= 6.5 % Please note range changes. Performed By: #### L [id number], [id number], L501.9985, L503.0106 ####[facility] [id number] [place], [address] Hemoglobin A1c percentageOrd ered By: Tessa Roca on 01-23-2025 HbA1c (Bld) [Mass fraction] 5.5 % <5.7 [facility] Comment on above: Normal < 5.7 % Predi abetic 5.7 - 6.4 % Diabetic >or= 6.5 % Please note range changes. Hemoglobin measurementOrdere d By: ED PROVIDER on 01-23-2025 Hemoglobin (Bld) [Mass/Vol] 10.5 g/dL Low 13.0-16.5 [facility] Immature granulocytes/100 WB C Auto (Bld)Ordered By: ED PROVIDER on 01-23-2025 Immature granulocytes/100 WBC (Bld) 0.700 % 0.0-0.9 [facility] Comment on above: IG% - Immature Granu locytes (promyelocytes, myelocytes and metamyelocytes) > 1% indicates that a LEFT SHIFT is Present. Iron measurement (mass/mass) Ordered By: Tessa Roca on 01-23-2025 Iron (Unsp spec) [Mass/Mass] 91 ug/dL 65-175 [facility] Ketones Test strip Ql (U)Ord ered By: Jae Mcclure on 01-23-2025 Ketones Ql (U) Negative Negative [facility] Laboratory - Chemistry and C hemistry - challengeOrdered By: ED PROVIDER on 01-23-2025 AST [Catalytic activity/Vol] 35 U/L <38 [facility] Lipaseon 01-23-2025 Lipase [Catalytic activity/Vol] 39 U/L Normal 13-75 [facility] Comment on above: Result Comment: Oma briones note:LIPASE revised reference range effective 22.New Lipase methodology. Expected to produce lower valuesthan the previous assay method.NEW Reference Range: 13 - 75 U/L Performed By: #### L 500.4050, L501.2450, L100.0100 ####[facility] [address] [place], [place], [address] Lipase measurementOrdered By : ED PROVIDER on 01-23-2025 Lipase [Catalytic activity/Vol] 39 U/L 13-75 [facility] Comment on above: Please note:LIPASE r evised reference range effective 22. New Lipase methodology. Expected to produce lower values than the previous assay method. NEW Reference Range: 13 - 75 U/L MCV (mean corpuscular volume ) determinationOrdered By: ED PROVIDER on 01-23-2025 MCV (RBC) [Entitic vol] 106.2 fL High 80-94 [facility] Magnesiumon 01-23-2025 Magnesium [Mass/Vol] 2.1 mg/dL Normal 1.5-2.2 [facility] Comment on above: Performed By: #### L 501.5200, L506.0200 ####[facility] [address] [place], [address] Magnesium measurement (mass/ volume)Ordered By: Tessa Roca on 01-23-2025 Magnesium (Unsp spec) [Mass/Vol] 2.1 mg/dL 1.5-2.2 [facility] Mean corpuscular hemoglobin (MCH) determinationOrdered By: ED PROVIDER on 01-23-2025 MCH (RBC) [Entitic mass] 36.0 pg High 27.0-32.0 [facility] Mean corpuscular hemoglobin concentration (MCHC) determinationOrdered By: ED PROVIDER on 01-23-2025 MCHC (RBC) [Mass/Vol] 33.9 g/dL 32-36 [facility] Mean platelet volume determi nationOrdered By: ED PROVIDER on 01-23-2025 Platelet mean volume (Bld) [Entitic vol] 9.5 fL 6.2-12.0 [facility] Microscopic analysis of urin e for red blood cells (RBC)Ordered By: Jae Mcclure on 01-23-2025 Microscopic analysis of urine for red blood cells (RBC) 0-5 SEEN /hpf 0-5 [facility] Monocyte percentageOrdered B y: ED PROVIDER on 01-23-2025 Monocytes/100 WBC (Bld) 13.7 % High 0-10 [facility] Mucus LM Ql (Urine sed)Order ed By: Jae Mcclure on 01-23-2025 Mucus Ql (Urine sed) 0 SEEN /hpf [facility] Neutrophil percentageOrdered By: ED PROVIDER on 01-23-2025 Neutrophils/100 WBC (Bld) 58.3 % 47-70 [facility] Nitrite Test strip Ql (U)Ord ered By: Jae Mcclure on 01-23-2025 Nitrite Ql (U) Negative Negative [facility] No Panel InformationOrdered By: Tessa Roca on 01-23-2025 Unsaturated Iron Binding Capacity 179 ug/dL Low 228-428 [facility] Nuclear Ab IA Ql (S)on 01-23 GALLO SCR QUAL Negative Normal Negative [facility] Comment on above: Order Comment: Speci men Type: BLOOD SPECIMEN Ordering Facility: [facility] Address: [address] [place] [address] Result Comment: The qualitative antinuclear antibody screen test performed using the following antigens: dsDNA, Chromatin, Ribosomal P, SS-A 60, SS-A 52, SS-B, Sm, SmRNP, ATOMIC PROCESS ENGINEER A, ATOMIC PROCESS ENGINEER 68, Scl-70, Francia-1, and Centromere B. Methodology: Multiplex flow immunoassay. Performed By: #### C OPPER #### [facility] CLIA [id number] [address] [place] [address] [place] Nucleated red blood cell per centageOrdered By: ED PROVIDER on 01-23-2025 Nucleated RBC/100 WBC (Bld) [Ratio] 0 % 0-5 [facility] Platelet countOrdered By: ED PROVIDER on 01-23-2025 Platelets (Bld) [#/Vol] 167 10*3/uL 150-450 [facility] Potassium measurement (mass/ volume)Ordered By: ED PROVIDER on 01-23-2025 Potassium (Unsp spec) [Mass/Vol] 3.8 mmol/L 3.3-5.1 [facility] Protein Test strip Ql (U)Ord ered By: Jae Mcclure on 01-23-2025 Protein Ql (U) Negative Negative [facility] RBC Auto (Bld) [#/Vol]Ordere d By: ED PROVIDER on 01-23-2025 RBC (Bld) [#/Vol] 2.92 10*6/uL Low 4.6-6.2 [facility] Serum creatinine measurement (mass/volume)Ordered By: ED PROVIDER on 01-23-2025 Creatinine [Mass/Vol] 0.82 mg/dL 0.70-1.20 [facility] Serum globulin measurementOr dered By: ED PROVIDER on 01-23-2025 Globulin (S) [Mass/Vol] 2.9 g/dL 2.2-4.2 [facility] Serum glucose measurement (m ass/volume)Ordered By: ED PROVIDER on 01-23-2025 Glucose [Mass/Vol] 100 mg/dL High 70-99 [facility] Serum or plasma alanine guevara otransferase (ALT) measurementOrdered By: ED PROVIDER on 01-23-2025 ALT [Catalytic activity/Vol] 30 U/L <47 [facility] Serum or plasma albumin reid urement (mass/volume)Ordered By: ED PROVIDER on 01-23-2025 Albumin [Mass/Vol] 3.8 g/dL 3.4-4.8 [facility] Serum or plasma albumin/glob ulin mass ratioOrdered By: ED PROVIDER on 01-23-2025 Albumin/Globulin [Mass ratio] 1.3 {ratio} 0.9-2.4 [facility] Serum or plasma alkaline adelfo sphatase measurementOrdered By: ED PROVIDER on 01-23-2025 ALP [Catalytic activity/Vol] 103 U/L 40-129 [facility] Serum or plasma calcium reid urement (mass/volume)Ordered By: ED PROVIDER on 01-23-2025 Calcium [Mass/Vol] 9.0 mg/dL 7.6-11.0 [facility] Serum or plasma ferritin steve surement (mass/volume)Ordered By: Tessa Roca on 01-23-2025 Ferritin [Mass/Vol] 101 ng/mL 37-417 [facility] Serum or plasma iron saturat ion measurement (mass fraction)Ordered By: Tessa Roca on 01-23-2025 Iron saturation [Mass fraction] 34.0 % 9-55 [facility] Serum or plasma urea nitroge n measurement (mass/volume)Ordered By: ED PROVIDER on 01-23-2025 Urea nitrogen [Mass/Vol] 12 mg/dL 4-19 [facility] Sodium levelOrdered By: ED Juan DONNELLY on 01-23-2025 Sodium [Moles/Vol] 140 mmol/L 133-145 [facility] Squamous epithelial cells de tection in urine sediment by light microscopyOrdered By: Jae Mcclure on 01-23-2025 Epithelial cells.squamous LM Ql (Urine sed) 0-5 SEEN /hpf 0-5 [facility] THYROID PEROXIDASE ANTIBODYo n 01-23-2025 TPO Ab Qn [IU]/mL Normal <5.6 [facility] Comment on above: Order Comment: Speci men Type: URINE SPECIMEN Ordering Facility: [facility] Address: [address] [place] [address] Result Comment: Thyr oid Peroxidase Antibody test is used as an aid in diagnosis of autoimmune thyroid disease. Clinical correlation is required. Performed By: #### U 24MPA #### [facility] CLIA [id number] [address] [place] [address] [place] TRYPTASE BLOODon 01-23-2025 Tryptase [Mass/Vol] 10.1 ug/L High <8.4 [facility] Comment on above: Order Comment: Speci men Type: BLOOD SPECIMEN Ordering Facility: [facility] Address: [address] [place] [address] Performed By: #### 1 0886-0, 42003-3, LIPNF, 3084-1 #### [facility] CLIA [id number] [address] [place] [address] [place] Total proteinOrdered By: ED PROVIDER on 01-23-2025 Protein [Mass/Vol] 6.6 g/dL 5.9-8.4 [facility] Type AND Screenon 01-23-2025 Ab SCREEN GEL Negative Normal [facility] Comment on above: Order Comment: Has p t arrived? YWRISTBAND: [id number] Performed By: #### B TS ####[facility] [address] [place], [address] Urinalysis, Completeon 01-23 EPI,SQUAMOUS 0-5 SEEN Normal 0-5 [facility] Comment on above: Order Comment: CLEAN CATCH Performed By: #### L 400.0001 ####[facility] [address] [place], [address] RBC 0-5 SEEN Normal 0-5 [facility] Comment on above: Order Comment: CLEAN CATCH Performed By: #### L 400.0001 ####[facility] [address] [place], [address] WBC 10-25 SEEN Normal 0-5 [facility] Comment on above: Order Comment: CLEAN CATCH Performed By: #### L 400.0001 ####[facility] [address] [place], [address] BACTERIA 0 SEEN Normal None Seen [facility] Comment on above: Order Comment: CLEAN CATCH Performed By: #### L 400.0001 ####[facility] [address] [place], [address] Mucus Ql (Urine sed) 0 SEEN Normal [facility] Comment on above: Order Comment: CLEAN CATCH Performed By: #### L 400.0001 ####[facility] [address] [place], [address] Urine clarityOrdered By: Jett Mcclure on 01-23-2025 Clarity (U) Clear Clear [facility] Urine color determinationOrd ered By: Jae Mcclure on 01-23-2025 Color (U) Straw Yellow [facility] Urine cultureOrdered By: Gennaro Blanco on 01-23-2025 Bacteria identified Cx Nom (U) Culture exhibits no growth. [facility] Urine glucose detectionOrder ed By: Jae Mcclure on 01-23-2025 Glucose Ql (U) Normal mg/dl Normal [facility] Urine leukocyte esterase det ection by dipstickOrdered By: Jae Mcclure on 01-23-2025 Leukocyte esterase Test strip Ql (U) 100 /ul High Negative [facility] Urine pHOrdered By: Jae Saeed ght on 01-23-2025 pH (U) 6.0 [pH] 5.0 - 8.0 [facility] Urine sediment bacteria coun t by microscopy (number/high power field)Ordered By: Jae Mcclure on 01-23-2025 Bacteria LM.HPF (Urine sed) [#/Area] 0 /[HPF] None Seen [facility] Urine specific gravity measu rementOrdered By: Jae Mcclure on 01-23-2025 Specific gravity (U) [Rel density] 1.015 1.002-1.030 [facility] Urine urobilinogen measureme ntOrdered By: Jae Mcclure on 01-23-2025 Urobilinogen Ql (U) Normal mg/dl Normal [facility] Vitamin B12on 01-23-2025 Cobalamin (Vitamin B12) [Mass/Vol] 1003 pg/mL High 180-914 [facility] Comment on above: Performed By: #### L 503.6030, L503.6550, L501.9985, L503.0106 ####[facility] [address] [place], [place], [address] Vitamin B12 ser/plasOrdered By: Tessa Roca on 01-23-2025 Cobalamin (Vitamin B12) [Mass/Vol] 1003 pg/mL High 180-914 [facility] White blood cell (WBC) count Ordered By: ED PROVIDER on 01-23-2025 WBC (Bld) [#/Vol] 5.4 10*3/uL 4.4-11.0 [facility] White blood cell countOrdere d By: Jae Mcclure on 01-23-2025 White blood cell count 10-25 SEEN /hpf 0-5 [facility] Culture, Blood (WB)on 2024 CUB No growth in 5 days. Normal [facility] Comment on above: Performed By: #### M 200.1000 ####[facility] [address] [place], [address] Immunoglobulin Andrew 5 IMMUNOGLOB E QN 214 IU/mL Normal 6-495 [facility] Comment on above: Result Comment: Perf ormed at: BN - [facility] [address] [place], [place] [id number] Director: Zafar Browne MD, Phone: [phone] Performed By: #### L 3200.1600, L34005105, L5037500, L509.7004 ####[facility] [address] [place], [address] Tryptaseon 01-02-2025 TRYPTASE 6.8 ug/L Normal 2.2-13.2 [facility] Comment on above: Performed By: #### L 32001600, L34005108, L503.6564, L509700 ####[facility] [address] [place], [address] CNOVon 01-01-2025 [facility] NAZARIO HUTTON ([id number]) 1950 M Date Time Provider Department 01/01/25 9:40 AM [facility] During your visit today, we recorded the following information about you: Temperature Pulse Respiration Blood pressure 97.8 degrees 72/minute 18/minute 122/80 Weight 97.5 kg Suzanna Dawson PA-C 01/01/2025 12:06 PM Signed Chief Complaint Patient presents with: Hospital F/U TCM Note: Patient discharged on 12/30/2024 Patients appointment is within 48 hours. EDMUND Rutledgene Irma Hutton is a 74 year old male who presents here today for Hospital Discharge Follow up. He was admitted Monday and discharged Monday morning 12/30/24. He has picked up his epi pen from the pharmacy and is scheduled to see an Scrap Preparer on January 23. Prozac was discontinued by the hospitalist due to possible correlation with angioedema. Patient states he feels ok and is agreeable to waiting to get the mid wife's recommendations before attempting to initiate a new [...] 10/30/[address] 04/18/2022 DPA: Jea (son) Low serum vitamin B12 05/18/2023 Low vitamin D level 03/15/2021 Lumbosacral radiculopathy at L5 07/10/2023 Medicare annual wellness visit, subsequent 03/15/2021 Medicare Part B: Not able to find. 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 Normal [facility] C1 EST Inhibitor, Functional on 12-31-2024 C1 EST INH FUNC [address] [facility] Comment on above: Result Comment: Resu lt Units: %mean normal Abnormal <41 Equivocal 41 - 67 Normal >67Performed at: [facility] [address] [id number] Director: Zafar Browne MD, Phone: [phone] Performed By: #### L 500.4050, L100.0100, L3400.4350 ####[facility] [address] [place], [address] Hepatitis Panel Acuteon - COMMENT Comment Normal . [facility] Comment on above: Result Comment: Not infected with HCV unless early or acute infection issuspected (which may be delayed in an immunocompromisedindividual), or other evidence exists to indicate HCVinfection.Performed at: - [address] [id number] Director: José Miguel Alba PhD, Phone: [phone] Performed By: #### L 3000.0375 ####[facility] [address] [place], [place], [address] HEP B CORE,IgM Negative Normal Negative [facility] Comment on above: Performed By: #### L 3000.0375 ####[facility] [address] [place], [address] HEP B SURF AG Negative Normal Negative [facility] Comment on above: Performed By: #### L 3000.0375 ####[facility] [address] [place], [address] HEP C VIRUS AB Non-Reactive Normal Non Reactive [facility] Comment on above: Performed By: #### L 3000.0375 ####[facility] [address] [place], [address] HEPATITIS A-IgM Negative Normal Negative [facility] Comment on above: Result Comment: A ne gative anti-HAV IgM result suggests no recent orcurrent HAV infection. Performed By: #### L 3000.0375 ####[facility] [address] [place], [address] Respiratory Cultureon [address] [facility] Comment on above: Performed By: #### M 100.2400, M100.2000 ####[facility] [address] [place], [address] Absolute lymphocyte countOrd ered By: Alexi Olivas on 12-30-2024 Lymphocytes Auto (Unsp spec) [#/Vol] 0.45 10*3/uL Low 0.83-4.51 [facility] Absolute neutrophil countOrd ered By: Alexi Olivas on 12-30-2024 Neutrophils (Bld) [#/Vol] 10.5 10*3/uL High 2.0-7.7 [facility] Anion gap in Serum or Plasma Ordered By: Alexi Olivas on 12-30-2024 Anion gap [Moles/Vol] 10 mmol/L 5-15 [facility] Automated lymphocyte count a s percentage of total leukocytesOrdered By: Alexi Olivas on 12-30-2024 Lymphocytes/100 WBC Auto (Unsp spec) 3.8 % Low 19-41 [facility] BUN/creatinine ratioOrdered By: Alexi Olivas on 12-30-2024 Urea nitrogen/Creatinine [Mass ratio] 29.0 mg/mg High 10-20 [facility] Basic Metabolic Profile (BMP )on 12-30-2024 BUN/CRE 29.0 RATIO High 10-20 [facility] Comment on above: Performed By: #### L 500.2500, L100.0100 ####[facility] [address] [place], [address] Calcium [Mass/Vol] 9.0 mg/dL Normal 7.6-11.0 [facility] Comment on above: Performed By: #### L 500.2500, L100.0100 ####[facility] [address] [place], [address] Chloride [Moles/Vol] 107 mmol/L Normal 98-108 [facility] Comment on above: Performed By: #### L 500.2500, L100.0100 ####[facility] [address] [place], [address] CO2 [Moles/Vol] 24.1 mmol/L Normal 21.0-32.0 [facility] Comment on above: Performed By: #### L 500.2500, L100.0100 ####[facility] [address] [place], [address] Creatinine [Mass/Vol] 0.70 mg/dL Normal 0.70-1.20 [facility] Comment on above: Performed By: #### L 500.2500, L100.0100 ####[facility] [address] [place], [address] ECRCL 94.14 ml/min Normal 50-250 [facility] Comment on above: Performed By: #### L 500.2500, L100.0100 ####[facility] [address] [place], [address] GAP 10 Normal 5-15 [facility] Comment on above: Performed By: #### L 500.2500, L100.0100 ####[facility] [address] [place], [address] GFR/1.73 sq M.predicted among non-blacks MDRD (S/P/Bld) [Vol rate/Area] 97 mL/min/{1.73_m2} Normal >60 [facility] Comment on above: Result Comment: mL/m in/1.73m2 CKD-EPI Creatinine Equation (2020) Performed By: #### L 500.2500, L100.0100 ####[facility] [address] [place], [address] Glucose [Mass/Vol] 125 mg/dL High 70-99 [facility] Comment on above: Performed By: #### L 500.2500, L100.0100 ####[facility] [address] [place], [address] Potassium [Moles/Vol] 4.0 mmol/L Normal 3.3-5.1 [facility] Comment on above: Performed By: #### L 500.2500, L100.0100 ####[facility] [address] [place], [address] Sodium [Moles/Vol] 141 mmol/L Normal 133-145 [facility] Comment on above: Performed By: #### L 500.2500, L100.0100 ####[facility] [address] [place], [address] Urea nitrogen [Mass/Vol] 20 mg/dL High 4-19 [facility] Comment on above: Performed By: #### L 500.2500, L100.0100 ####[facility] [address] [place], [address] Basophil percentageOrdered B y: Alexi Olivas on 12-30-2024 Basophils/100 WBC (Bld) 0.2 % 0-1 [facility] CBC W/Diff, Automatedon 06- Absolute Lymph 0.45 X10 3/uL Low 0.83-4.51 [facility] Comment on above: Performed By: #### L 500.2500, L100.0100 ####[facility] [address] [place], [address] Absolute Neut 10.5 X10 3/uL High 2.0-7.7 [facility] Comment on above: Performed By: #### L 500.2500, L100.0100 ####[facility] [address] [place], [address] Basophils/100 WBC (Bld) 0.2 % Normal 0-1 [facility] Comment on above: Performed By: #### L 500.2500, L100.0100 ####[facility] [address] [place], [address] Eosinophils/100 WBC (Bld) 0.0 % Normal 0-5 [facility] Comment on above: Performed By: #### L 500.2500, L100.0100 ####[facility] [address] [place], [address] Erythrocyte distribution width (RBC) [Ratio] 13.7 % Normal 11.6-14.6 [facility] Comment on above: Performed By: #### L 500.2500, L100.0100 ####[facility] [address] [place], [address] Hematocrit (Bld) [Volume fraction] 40.2 % Normal 40-54 [facility] Comment on above: Performed By: #### L 500.2500, L100.0100 ####[facility] [address] [place], [address] Hemoglobin (Bld) [Mass/Vol] 13.5 g/dL Normal 13.0-16.5 [facility] Comment on above: Performed By: #### L 500.2500, L100.0100 ####[facility] [address] [place], [address] IG% 1.000 High 0.0-0.9 [facility] Comment on above: Result Comment: IG% - Immature Granulocytes (promyelocytes, myelocytes andmetamyelocytes) > 1% indicates that a LEFT SHIFT is Present. Performed By: #### L 500.2500, L100.0100 ####[facility] [address] [place], [address] Lymphocytes/100 WBC (Bld) 3.8 % Low 19-41 [facility] Comment on above: Performed By: #### L 500.2500, L100.0100 ####[facility] [address] [place], [address] MCH (RBC) [Entitic mass] 35.9 pg High 27.0-32.0 [facility] Comment on above: Performed By: #### L 500.2500, L100.0100 ####[facility] [address] [place], [address] MCHC (RBC) [Mass/Vol] 33.6 g/dL Normal 32-36 [facility] Comment on above: Performed By: #### L 500.2500, L100.0100 ####[facility] [address] [place], [address] MCV (RBC) [Entitic vol] 106.9 fL High 80-94 [facility] Comment on above: Performed By: #### L 500.2500, L100.0100 ####[facility] [address] [place], [address] Monocytes/100 WBC (Bld) 6.4 % Normal 0-10 [facility] Comment on above: Performed By: #### L 500.2500, L100.0100 ####[facility] [address] [place], [address] Neutrophils/100 WBC (Bld) 88.6 % High 47-70 [facility] Comment on above: Performed By: #### L 500.2500, L100.0100 ####[facility] [address] [place], [address] Nucleated RBC (Bld) [#/Vol] 0 10*3/uL Normal 0-5 [facility] Comment on above: Performed By: #### L 500.2500, L100.0100 ####[facility] [address] [place], [address] Platelet mean volume (Bld) [Entitic vol] 9.8 fL Normal 6.2-12.0 [facility] Comment on above: Performed By: #### L 500.2500, L100.0100 ####[facility] [address] [place], [address] Platelets (Bld) [#/Vol] 185 10*3/uL Normal 150-450 [facility] Comment on above: Performed By: #### L 500.2500, L100.0100 ####[facility] [address] [place], [address] RBC (Bld) [#/Vol] 3.76 10*6/uL Low 4.6-6.2 [facility] Comment on above: Performed By: #### L 500.2500, L100.0100 ####[facility] [address] [place], [address] RDW SD 54.1 fl High 35.1-43.9 [facility] Comment on above: Performed By: #### L 500.2500, L100.0100 ####[facility] [address] [place], [address] WBC (Bld) [#/Vol] 11.8 10*3/uL High 4.4-11.0 [facility] Comment on above: Performed By: #### L 500.2500, L100.0100 ####[facility] [address] [place], [address] Carbon dioxide, total [Moles /volume] in Central venous bloodOrdered By: Alexi Olivas on 12-30-2024 CO2 [Moles/Vol] 24.1 mmol/L 21.0-32.0 [facility] Chloride assayOrdered By: Domenico Olivas on 12-30-2024 Chloride [Moles/Vol] 107 mmol/L 98-108 [facility] Electrocardiogram reportOrde red By: Sabrina Arrington on 12-30-2024 EKG study [facility] [address] [facility] [place] [address] 12 Lead EKG 12/27/24 1414 MR#: [id number] Acct: [id number] Name: NAZARIO HUTTON Rep #:[id number] : 1950 74 From: Sabrina cuevas MD Attending Dr: Dr. Alexi Olivas DO Status: ADM IN Ordering Dr: Marino [...] Abnormal ECG Confirmed by HUGH LUNA, MORRIS ([id number]), dictionary editor CAREY BAUER ([id number]) on12/30/2024 6:52:47 AM Referred By: Confirmed By: MORRIS ARRINGTON MD 12/30/24651 Date _ Sabrina Arrington MD CC: Dr. Alexi Olivas DO; Dr. Valeriano Beasley MD; Dr. Marino Holguin MD ~ Signed [facility] Other Phone: Eosinophil percentageOrdered By: Alexi Olvias on 12-30-2024 Eosinophils/100 WBC (Bld) 0.0 % 0-5 [facility] Erythrocyte distribution wid th ratioOrdered By: Alexi Olivas on 12-30-2024 Erythrocyte distribution width (RBC) [Ratio] 13.7 % 11.6-14.6 [facility] [facility] Erythrocyte distribution wid th standard deviationOrdered By: Alexi Olivas on 12-30-2024 Erythrocyte distribution width (RBC) [Ratio] 54.1 fl High 35.1-43.9 [facility] Glomerular filtration rate ( GFR) estimation/1.73 sq m using serum, plasma, or whole bOrdered By: Alexi Olivas on 12-30-2024 GFR/1.73 sq M.predicted among non-blacks MDRD (S/P/Bld) [Vol rate/Area] 97 mL/min/{1.73_m2} >60 [facility] Comment on above: mL/min/1.73m2 CKD-EP I Creatinine Equation (2020) Gram Stainon 12-30-2024 GS see mar Acceptable Specimen? Yes (<25 Epithelial cells per/lpf) Gram Stain 3+ Gram positive cocci 2+ Gram positive rods 4+ White Blood Cells Normal [facility] Comment on above: Performed By: #### M 100.2400, ####[facility] [address] [place], [address] GS Acceptable Specimen? Yes (<25 Epithelial cells per/lpf) Gram Stain 2+ Gram positive cocci 1+ Gram positive rods 3+ White Blood Cells Normal [facility] Comment on above: Performed By: #### M .1999, M1.0 ####[facility] [address] [place], [address] Hematocrit Auto (Bld) [Volum e fraction]Ordered By: Alexi Olivas on 12-30-2024 Hematocrit (Bld) [Volume fraction] 40.2 % 40-54 [facility] Hemoglobin measurementOrdere d By: Alexi Olivas on 12-30-2024 Hemoglobin (Bld) [Mass/Vol] 13.5 g/dL 13.0-16.5 [facility] Immature granulocytes/100 WB C Auto (Bld)Ordered By: Alexi Olivas on 12-30-2024 Immature granulocytes/100 WBC (Bld) 1.000 % High 0.0-0.9 [facility] Comment on above: IG% - Immature Granu locytes (promyelocytes, myelocytes and metamyelocytes) > 1% indicates that a LEFT SHIFT is Present. MCV (mean corpuscular volume ) determinationOrdered By: Alexi Olivas on 12-30-2024 MCV (RBC) [Entitic vol] 106.9 fL High 80-94 [facility] Mean corpuscular hemoglobin (MCH) determinationOrdered By: Alexi Olivas on 12-30-2024 MCH (RBC) [Entitic mass] 35.9 pg High 27.0-32.0 [facility] Mean corpuscular hemoglobin concentration (MCHC) determinationOrdered By: Alexi Olivas on 12-30-2024 MCHC (RBC) [Mass/Vol] 33.6 g/dL 32-36 [facility] Mean platelet volume determi nationOrdered By: Alexi Olivas on 12-30-2024 Platelet mean volume (Bld) [Entitic vol] 9.8 fL 6.2-12.0 [facility] Monocyte percentageOrdered B y: Alexi Olivas on 12-30-2024 Monocytes/100 WBC (Bld) 6.4 % 0-10 [facility] Neutrophil percentageOrdered By: Alexi Olivas on 12-30-2024 Neutrophils/100 WBC (Bld) 88.6 % High 47-70 [facility] Nucleated red blood cell per centageOrdered By: Alexi Olivas on 12-30-2024 Nucleated RBC/100 WBC (Bld) [Ratio] 0 % 0-5 [facility] Platelet countOrdered By: Domenico Olivas on 12-30-2024 Platelets (Bld) [#/Vol] 185 10*3/uL 150-450 [facility] Potassium measurement (mass/ volume)Ordered By: Alexi Olivas on 12-30-2024 Potassium (Unsp spec) [Mass/Vol] 4.0 mmol/L 3.3-5.1 [facility] RBC Auto (Bld) [#/Vol]Ordere d By: Alexi Olivas on 12-30-2024 RBC (Bld) [#/Vol] 3.76 10*6/uL Low 4.6-6.2 [facility] Serum creatinine measurement (mass/volume)Ordered By: Alexi Olivas on 12-30-2024 Creatinine [Mass/Vol] 0.70 mg/dL 0.70-1.20 [facility] Serum glucose measurement (m ass/volume)Ordered By: Alexi Olivas on 12-30-2024 Glucose [Mass/Vol] 125 mg/dL High 70-99 [facility] Serum or plasma calcium reid urement (mass/volume)Ordered By: Alexi Olivas on 12-30-2024 Calcium [Mass/Vol] 9.0 mg/dL 7.6-11.0 [facility] Serum or plasma urea nitroge n measurement (mass/volume)Ordered By: Alexi Olivas on 12-30-2024 Urea nitrogen [Mass/Vol] 20 mg/dL High 4-19 [facility] Sodium levelOrdered By: Alexi Olivas on 12-30-2024 Sodium [Moles/Vol] 141 mmol/L 133-145 [facility] White blood cell (WBC) count Ordered By: Alexi Olivas on 12-30-2024 WBC (Bld) [#/Vol] 11.8 10*3/uL High 4.4-11.0 [facility] Assessment of wrist artery p atency prior to arterial punctureOrdered By: Alexi Olivas on 12-29-2024 Arterial patency Wrist artery --pre arterial puncture Positive [facility] Basic Metabolic Profile (BMP )on 12-29-2024 BUN/CRE 20.7 RATIO High 10-20 [facility] Comment on above: Performed By: #### L 3890.6006, L500.2500, L100.0100 ####[facility] [address] [place], [address] Calcium [Mass/Vol] 9.1 mg/dL Normal 7.6-11.0 [facility] Comment on above: Performed By: #### L 3890.6006, L500.2500, L100.0100 ####[facility] [address] [place], [address] Chloride [Moles/Vol] 105 mmol/L Normal 98-108 [facility] Comment on above: Performed By: #### L 3890.6006, L500.2500, L100.0100 ####[facility] [address] [place], [address] CO2 [Moles/Vol] 21.8 mmol/L Normal 21.0-32.0 [facility] Comment on above: Performed By: #### L 3890.6006, L500.2500, L100.0100 ####[facility] [address] [place], [address] Creatinine [Mass/Vol] 0.80 mg/dL Normal 0.70-1.20 [facility] Comment on above: Performed By: #### L 3890.6006, L500.2500, L100.0100 ####[facility] [address] [place], [address] ECRCL 94.28 ml/min Normal 50-250 [facility] Comment on above: Performed By: #### L 3890.6006, L500.2500, L100.0100 ####[facility] [address] [place], [address] GAP 12 Normal 5-15 [facility] Comment on above: Performed By: #### L 3890.6006, L500.2500, L100.0100 ####[facility] [address] [place], [address] GFR/1.73 sq M.predicted among non-blacks MDRD (S/P/Bld) [Vol rate/Area] 93 mL/min/{1.73_m2} Normal >60 [facility] Comment on above: Result Comment: mL/m in/1.73m2 CKD-EPI Creatinine Equation (2020) Performed By: #### L 3890.6006, L500.2500, L100.0100 ####[facility] [address] [place], [address] Glucose [Mass/Vol] 169 mg/dL High 70-99 [facility] Comment on above: Performed By: #### L 3890.6006, L500.2500, L100.0100 ####[facility] [address] [place], [address] Potassium [Moles/Vol] 4.3 mmol/L Normal 3.3-5.1 [facility] Comment on above: Performed By: #### L 3890.6006, L500.2500, L100.0100 ####[facility] [address] [place], [address] Sodium [Moles/Vol] 139 mmol/L Normal 133-145 [facility] Comment on above: Performed By: #### L 3890.6006, L500.2500, L100.0100 ####[facility] [address] [place], [address] Urea nitrogen [Mass/Vol] 17 mg/dL Normal 4-19 [facility] Comment on above: Performed By: #### L 3890.6006, L500.2500, L100.0100 ####[facility] [address] [place], [address] Blood [facility] TATY TEST Positive Normal [facility] Comment on above: Performed By: #### L 9000.0800 ####[facility] [address] [place], [address] Base excess Calc (Bld) [Moles/Vol] 4 mmol/L High -2 to +2 [facility] Comment on above: Performed By: #### L 9000.0800 ####[facility] [address] [place], [address] Blood Gas Type ART Normal [facility] Comment on above: Performed By: #### L 9000.0800 ####[facility] [address] [place], [address] CO2 [Moles/Vol] 29 mmol/L Normal [facility] Comment on above: Performed By: #### L 9000.0800 ####[facility] [address] [place], [address] [address] [facility] Comment on above: Performed By: #### L 9000.0800 ####[facility] [address] [place], [address] HCO3 (Bld) [Moles/Vol] 27.9 mmol/L High 22-26 [facility] Comment on above: Performed By: #### L 9000.0800 ####[facility] [address] [place], [address] [facility] Comment on above: Performed By: #### L 9000.0800 ####[facility] [address] [place], [address] O2 Delivery Dev ET Tube Normal [facility] Comment on above: Performed By: #### L 9000.0800 ####[facility] [address] [place], [address] pCO2 40.5 mmHg Normal 35-45 [facility] Comment on above: Performed By: #### L 9000.0800 ####[facility] [address] [place], [address] [facility] Comment on above: Performed By: #### L 9000.0800 ####[facility] [address] [place], [address] pH (Bld) 7.45 [pH] Normal 7.35-7.45 [facility] Comment on above: Performed By: #### L 9000.0800 ####[facility] [address] [place], [address] PO2 76 mmHG Normal 75-100 [facility] Comment on above: Performed By: #### L 9000.0800 ####[facility] [address] [place], [address] [facility] Comment on above: Performed By: #### L 9000.0800 ####[facility] [address] [place], [address] SITE R Radial Normal [facility] Comment on above: Performed By: #### L 9000.0800 ####[facility] [address] [place], [address] SO2 96 Normal 95-99 [facility] Comment on above: Performed By: #### L 0.0800 ####[facility] [address] [place], [address] Vt 500.[address] [facility] Comment on above: Performed By: #### L 0.0800 ####[facility] [address] [place], [address] Blood base excess determinat ionOrdered By: Alexi Olivas on 12-29-2024 Base excess Calc (BldV) [Moles/Vol] 4 mmol/L High -2-2 [facility] Blood bicarbonate measuremen tOrdered By: Alexi Olivas on 12-29-2024 HCO3 (Bld) [Moles/Vol] 27.9 mmol/L High 22-26 [facility] Blood cultureOrdered By: Donnie Myers on 12-29-2024 Bacteria identified Cx Nom (Bld) No growth in [address] [facility] CBC W/Diff, Automatedon 06-0 Absolute Lymph 0.43 X10 3/uL Low 0.83-4.51 [facility] Comment on above: Performed By: #### L 3890.6006, L500.2500, L100.0100 ####[facility] [address] [place], [address] Absolute Neut 13.7 X10 3/uL High 2.0-7.7 [facility] Comment on above: Performed By: #### L 3890.6006, L500.2500, L100.0100 ####[facility] [address] [place], [address] Basophils/100 WBC (Bld) 0.1 % Normal 0-1 [facility] Comment on above: Performed By: #### L 3890.6006, L500.2500, L100.0100 ####[facility] [address] [place], [address] Eosinophils/100 WBC (Bld) 0.0 % Normal 0-5 [facility] Comment on above: Performed By: #### L 3890.6006, L500.2500, L100.0100 ####[facility] [address] [place], [address] Erythrocyte distribution width (RBC) [Ratio] 13.5 % Normal 11.6-14.6 [facility] Comment on above: Performed By: #### L 3890.6006, L500.2500, L100.0100 ####[facility] [address] [place], [address] Hematocrit (Bld) [Volume fraction] 42.1 % Normal 40-54 [facility] Comment on above: Performed By: #### L 3890.6006, L500.2500, L100.0100 ####[facility] [address] [place], [address] Hemoglobin (Bld) [Mass/Vol] 14.3 g/dL Normal 13.0-16.5 [facility] Comment on above: Performed By: #### L 3890.6006, L500.2500, L100.0100 ####[facility] [address] [place], [address] IG% 0.500 Normal 0.0-0.9 [facility] Comment on above: Result Comment: IG% - Immature Granulocytes (promyelocytes, myelocytes andmetamyelocytes) > 1% indicates that a LEFT SHIFT is Present. Performed By: #### L 3890.6006, L500.2500, L100.0100 ####[facility] [address] [place], [address] Lymphocytes/100 WBC (Bld) 2.9 % Low 19-41 [facility] Comment on above: Performed By: #### L 3890.6006, L500.2500, L100.0100 ####[facility] [address] [place], [address] MCH (RBC) [Entitic mass] 35.8 pg High 27.0-32.0 [facility] Comment on above: Performed By: #### L 3890.6006, L500.2500, L100.0100 ####[facility] [address] [place], [address] MCHC (RBC) [Mass/Vol] 34.0 g/dL Normal 32-36 [facility] Comment on above: Performed By: #### L 3890.6006, L500.2500, L100.0100 ####[facility] [address] [place], [address] MCV (RBC) [Entitic vol] 105.5 fL High 80-94 [facility] Comment on above: Performed By: #### L 3890.6006, L500.2500, L100.0100 ####[facility] [address] [place], [address] Monocytes/100 WBC (Bld) 4.4 % Normal 0-10 [facility] Comment on above: Performed By: #### L 3890.6006, L500.2500, L100.0100 ####[facility] [address] [place], [address] Neutrophils/100 WBC (Bld) 92.1 % High 47-70 [facility] Comment on above: Performed By: #### L 3890.6006, L500.2500, L100.0100 ####[facility] [address] [place], [address] Nucleated RBC (Bld) [#/Vol] 0 10*3/uL Normal 0-5 [facility] Comment on above: Performed By: #### L 3890.6006, L500.2500, L100.0100 ####[facility] [address] [place], [address] Platelet mean volume (Bld) [Entitic vol] 10.0 fL Normal 6.2-12.0 [facility] Comment on above: Performed By: #### L 3890.6006, L500.2500, L100.0100 ####[facility] [address] [place], [address] Platelets (Bld) [#/Vol] 198 10*3/uL Normal 150-450 [facility] Comment on above: Performed By: #### L 3890.6006, L500.2500, L100.0100 ####[facility] [address] [place], [address] RBC (Bld) [#/Vol] 3.99 10*6/uL Low 4.6-6.2 [facility] Comment on above: Performed By: #### L 3890.6006, L500.2500, L100.0100 ####[facility] [address] [place], [address] RDW SD 52.8 fl High 35.1-43.9 [facility] Comment on above: Performed By: #### L 3890.6006, L500.2500, L100.0100 ####[facility] [address] [place], [address] WBC (Bld) [#/Vol] 14.8 10*3/uL High 4.4-11.0 [facility] Comment on above: Performed By: #### L 3890.6006, L500.2500, L100.0100 ####[facility] [address] [place], [address] Chest 1 View (Portable)on Chest 1 View (Portable) Normal [facility] HIVon 12-29-2024 HIV Non-Reactive Normal Nonreactive [facility] Comment on above: Result Comment: Non- ReactiveReactiveRepeatedly reactive samples must be confirmed according [facility] recommended confirmatory algorithms. The subresults foreither HIVAG or AHIV can be used as an aid in the selectionof the confirmation algorithm for reactive samples.Send out specimens with Reactive results to [facility] forconfirmation.Order the HIV antibody detection and differentiation:lc#[id number] Performed By: #### L 3890.6006, L500.2500, L100.0100 ####[facility] [address] [place], [place], [id number] Influenza virus A and B and SARS-CoV-2 (COVID-19) and Respiratory syncytial virus RNAOrdered By: Mohit Myers on 12-29-2024 SARS-CoV-2 (COVID-19) RNA DEMARIO+probe Ql (Unsp spec) [facility] M100.678on 12-29-2024 M100.678 Pending SARS-CoV-2 (COVID 19) Negative INFLUENZA A Negative INFLUENZA B Negative RSV PCR Negative Normal [facility] Comment on above: Performed By: #### M 100.678 ####[facility] [address] [place], [place], [address] Measurement, pHOrdered By: Courtney Olivas on 12-29-2024 pH (Unsp spec) 7.45 [pH] 7.35-7.45 [facility] No Panel InformationOrdered By: Alexi Olivas on 12-29-2024 Bedside Blood Gas PEEP 5 [facility] Blood Gas Respiration Rate 14 [facility] Blood Gas Sample Site R Radial [facility] Blood Gas Specimen Type ART [facility] Blood Gas Tidal Volume 500.[address] [facility] Blood Gas Vent Mode AC [facility] Oxygen Delivery Device ET Tube [facility] No Panel InformationOrdered By: Mohit Myers on 12-29-2024 Hepatitis C Antibody Comment Comment . [facility] Comment on above: Not infected with HC V unless early or acute infection issuspected (which may be delayed in an immunocompromisedindividual), or other evidence exists to indicate HCVinfection.Performed at: - [facility] [id number] Director: José Miguel Alba PhD, Phone: [phone] HIV (1&2) Antibody Non-Reactive Nonreactive [facility] Comment on above: Non-ReactiveReactive Repeatedly reactive samples must be confirmed according to CDC recommended confirmatory algorithms. The subresults for either HIVAG or AHIV can be used as an aid in the selection of the confirmation algorithm for reactive samples.Send out specimens with Reactive results to [facility] for confirmation.Order the HIV antibody detection and differentiation: #[id number] Serum or plasma hepatitis B virus surface antigen detection by immunoassayOrdered By: Mohit Myers on 12-29-2024 HBV surface Ag IA Ql Negative Negative [facility] Total carbon dioxide measure mentOrdered By: Alexi Olivas on 12-29-2024 CO2 [Moles/Vol] 29 mmol/L [facility] Urinalysis, Completeon 12-29 BACTERIA Normal None Seen [facility] Comment on above: Order Comment: ALICIA CTOR TO SPECIFY Result Comment: AUGUSTUS ENT DISCHARGED Performed By: #### L 400.0001 ####[facility] [address] [facility] [address] BILIRUBIN URINE Normal Negative [facility] Comment on above: Order Comment: ALICIA CTOR TO SPECIFY Result Comment: AUGUSTUS ENT DISCHARGED Performed By: #### L 400.0001 ####[facility] [address] [facility] [address] Clarity (U) Normal Clear [facility] Comment on above: Order Comment: ALICIA CTOR TO SPECIFY Result Comment: AUGUSTUS ENT DISCHARGED Performed By: #### L 400.0001 ####[facility] [address] [facility] [address] Color (U) Normal Yellow [facility] Comment on above: Order Comment: ALICIA CTOR TO SPECIFY Result Comment: AUGUSTUS ENT DISCHARGED Performed By: #### L 400.0001 ####[facility] [address] [place], [address] EPI,SQUAMOUS Normal 0-5 [facility] Comment on above: Order Comment: COLLE CTOR TO SPECIFY Result Comment: AUGUSTUS ENT DISCHARGED Performed By: #### L 400.0001 ####[facility] [address] [place], [address] GLUCOSE, UR Normal Normal [facility] Comment on above: Order Comment: COLLE CTOR TO SPECIFY Result Comment: AUGUSTUS ENT DISCHARGED Performed By: #### L 400.0001 ####[facility] [address] [place], [address] KETONE UR Normal Negative [facility] Comment on above: Order Comment: ALICIA CTOR TO SPECIFY Result Comment: AUGUSTUS ENT DISCHARGED Performed By: #### L 400.0001 ####[facility] [address] [place], [address] LEUK ESTERASE Normal Negative [facility] Comment on above: Order Comment: COLLE CTOR TO SPECIFY Result Comment: AUGUSTUS ENT DISCHARGED Performed By: #### L 400.0001 ####[facility] [address] [place], [address] Mucus Ql (Urine sed) Normal [facility] Comment on above: Order Comment: ALICIA CTOR TO SPECIFY Result Comment: AUGUSTUS ENT DISCHARGED Performed By: #### L 400.0001 ####[facility] [address] [place], [address] Nitrite Ql (U) Normal Negative [facility] Comment on above: Order Comment: ALICIA CTOR TO SPECIFY Result Comment: AUGUSTUS ENT DISCHARGED Performed By: #### L 400.0001 ####[facility] [address] [place], [address] OCCULT BLOOD-UR Normal Negative [facility] Comment on above: Order Comment: ALICIA CTOR TO SPECIFY Result Comment: AUGUSTUS ENT DISCHARGED Performed By: #### L 400.0001 ####[facility] [address] [place], [address] pH UR Normal 5.0 - 8.0 [facility] Comment on above: Order Comment: ALICIA CTOR TO SPECIFY Result Comment: AUGUSTUS ENT DISCHARGED Performed By: #### L 400.0001 ####[facility] [address] [place], [address] PROT DIPSTX Normal Negative [facility] Comment on above: Order Comment: COLLE CTOR TO SPECIFY Result Comment: AUGUSTUS ENT DISCHARGED Performed By: #### L 400.0001 ####[facility] [address] [place], [address] RBC Normal 0-5 [facility] Comment on above: Order Comment: ALICIA CTOR TO SPECIFY Result Comment: AUGUSTUS ENT DISCHARGED Performed By: #### L 400.0001 ####[facility] [address] [place], [address] SP.GR. DIPSTX Normal 1.002-1.030 [facility] Comment on above: Order Comment: COLLE CTOR TO SPECIFY Result Comment: AUGUSTUS ENT DISCHARGED Performed By: #### L 400.0001 ####[facility] [address] [place], [address] [facility] Comment on above: Order Comment: ALICIA CTOR TO SPECIFY Result Comment: AUGUSTUS ENT DISCHARGED Performed By: #### L 400.0001 ####[facility] [address] [place], [address] Normal Normal [facility] Comment on above: Order Comment: ALICIA CTOR TO SPECIFY Result Comment: AUGUSTUS ENT DISCHARGED Performed By: #### L 400.0001 ####[facility] [address] [place], [address] WBC Normal 0-5 [facility] Comment on above: Order Comment: COLLE CTOR TO SPECIFY Result Comment: AUGUSTUS ENT DISCHARGED Performed By: #### L 400.0001 ####[facility] [address] [place], [address] BACTERIA 0 SEEN Normal None Seen [facility] Comment on above: Order Comment: DERRICK TER SPECIMEN Result Comment: @REC EIVED ON ACCIDENT. REORDERED Performed By: #### L 400.0001 ####[facility] [address] [place], [address] EPI,SQUAMOUS 0 SEEN Normal 0-5 [facility] Comment on above: Order Comment: DERRICK TER SPECIMEN Result Comment: @REC EIVED ON ACCIDENT. REORDERED Performed By: #### L 400.0001 ####[facility] [address] [place], [address] Mucus Ql (Urine sed) 0 SEEN Normal [facility] Comment on above: Order Comment: DERRICK TER SPECIMEN Result Comment: @REC EIVED ON ACCIDENT. REORDERED Performed By: #### L 400.0001 ####[facility] [address] [place], [address] RBC 0 SEEN Normal 0-5 [facility] Comment on above: Order Comment: DERRICK TER SPECIMEN Result Comment: @REC EIVED ON ACCIDENT. REORDERED Performed By: #### L 400.0001 ####[facility] [address] [place], [address] WBC 0 SEEN Normal 0-5 [facility] Comment on above: Order Comment: DERRICK TER SPECIMEN Result Comment: @REC EIVED ON ACCIDENT. REORDERED Performed By: #### L 400.0001 ####[facility] [address] [place], [address] BILIRUBIN URINE Normal Negative [facility] Comment on above: Order Comment: DERRICK TER SPECIMEN Result Comment: @REC EIVED ON ACCIDENT. REORDERED Performed By: #### L 400.0001 ####[facility] [address] [place], [address] Clarity (U) Normal Clear [facility] Comment on above: Order Comment: DERRICK TER SPECIMEN Result Comment: @REC EIVED ON ACCIDENT. REORDERED Performed By: #### L 400.0001 ####[facility] [address] [place], [address] Color (U) Normal Yellow [facility] Comment on above: Order Comment: DERRICK TER SPECIMEN Result Comment: @REC EIVED ON ACCIDENT. REORDERED Performed By: #### L 400.0001 ####[facility] [address] [place], [address] GLUCOSE, UR Normal Normal [facility] Comment on above: Order Comment: DERRICK TER SPECIMEN Result Comment: @REC EIVED ON ACCIDENT. REORDERED Performed By: #### L 400.0001 ####[facility] [address] [place], [address] KETONE UR Normal Negative [facility] Comment on above: Order Comment: DERRICK TER SPECIMEN Result Comment: @REC EIVED ON ACCIDENT. REORDERED Performed By: #### L 400.0001 ####[facility] [address] [place], [address] LEUK ESTERASE Normal Negative [facility] Comment on above: Order Comment: EDRRICK TER SPECIMEN Result Comment: @REC EIVED ON ACCIDENT. REORDERED Performed By: #### L 400.0001 ####[facility] [address] [place], [address] Nitrite Ql (U) Normal Negative [facility] Comment on above: Order Comment: DERRICK TER SPECIMEN Result Comment: @REC EIVED ON ACCIDENT. REORDERED Performed By: #### L 400.0001 ####[facility] [address] [place], [address] OCCULT BLOOD-UR Normal Negative [facility] Comment on above: Order Comment: DERRICK TER SPECIMEN Result Comment: @REC EIVED ON ACCIDENT. REORDERED Performed By: #### L 400.0001 ####[facility] [address] [place], [address] pH UR Normal 5.0 - 8.0 [facility] Comment on above: Order Comment: DERRICK TER SPECIMEN Result Comment: @REC EIVED ON ACCIDENT. REORDERED Performed By: #### L 400.0001 ####[facility] [address] [place], [address] PROT DIPSTX Normal Negative [facility] Comment on above: Order Comment: DERRICK TER SPECIMEN Result Comment: @REC EIVED ON ACCIDENT. REORDERED Performed By: #### L 400.0001 ####[facility] [address] [place], [address] SP.GR. DIPSTX Normal 1.002-1.030 [facility] Comment on above: Order Comment: DERRICK TER SPECIMEN Result Comment: @REC EIVED ON ACCIDENT. REORDERED Performed By: #### L 400.0001 ####[facility] [address] [place], [address] [facility] Comment on above: Order Comment: DERRICK TER SPECIMEN Result Comment: @REC EIVED ON ACCIDENT. REORDERED Performed By: #### L 400.0001 ####[facility] [address] [place], [address] [facility] Comment on above: Order Comment: DERRICK TER SPECIMEN Result Comment: @REC EIVED ON ACCIDENT. REORDERED Performed By: #### L 400.0001 ####[facility] [address] [place], [address] Bilirubin, totalOrdered By: Flakita Florentino on 12-28-2024 Bilirubin [Mass/Vol] 0.59 mg/dL 0.00-1.30 [facility] CBC W/Diff, Automatedon Absolute Lymph 0.45 X10 3/uL Low 0.83-4.51 [facility] Comment on above: Performed By: #### L 501.5200, L100.0100, L500.4050, L501.2300 ####[facility] [address] [place], [address] Absolute Neut 8.4 X10 3/uL High 2.0-7.7 [facility] Comment on above: Performed By: #### L 501.5200, L100.0100, L500.4050, L501.2300 ####[facility] [address] [place], [address] Basophils/100 WBC (Bld) 0.1 % Normal 0-1 [facility] Comment on above: Performed By: #### L 501.5200, L100.0100, L500.4050, L501.2300 ####[facility] [address] [place], [address] Eosinophils/100 WBC (Bld) 0.0 % Normal 0-5 [facility] Comment on above: Performed By: #### L 501.5200, L100.0100, L500.4050, L501.2300 ####[facility] [address] [place], [address] Erythrocyte distribution width (RBC) [Ratio] 13.3 % Normal 11.6-14.6 [facility] Comment on above: Performed By: #### L 501.5200, L100.0100, L500.4050, L501.2300 ####[facility] [address] [place], [address] Hematocrit (Bld) [Volume fraction] 41.5 % Normal 40-54 [facility] Comment on above: Performed By: #### L 501.5200, L100.0100, L500.4050, L501.2300 ####[facility] [address] [place], [address] Hemoglobin (Bld) [Mass/Vol] 14.4 g/dL Normal 13.0-16.5 [facility] Comment on above: Performed By: #### L 501.5200, L100.0100, L500.4050, L501.2300 ####[facility] [address] [place], [address] IG% 0.600 Normal 0.0-0.9 [facility] Comment on above: Result Comment: IG% - Immature Granulocytes (promyelocytes, myelocytes andmetamyelocytes) > 1% indicates that a LEFT SHIFT is Present. Performed By: #### L 501.5200, L100.0100, L500.4050, L501.2300 ####[facility] [address] [place], [address] Lymphocytes/100 WBC (Bld) 5.0 % Low 19-41 [facility] Comment on above: Performed By: #### L 501.5200, L100.0100, L500.4050, L501.2300 ####[facility] [address] [place], [address] MCH (RBC) [Entitic mass] 36.0 pg High 27.0-32.0 [facility] Comment on above: Performed By: #### L 501.5200, L100.0100, L500.4050, L501.2300 ####[facility] [address] [place], [address] MCHC (RBC) [Mass/Vol] 34.7 g/dL Normal 32-36 [facility] Comment on above: Performed By: #### L 501.5200, L100.0100, L500.4050, L501.2300 ####[facility] [address] [place], [address] MCV (RBC) [Entitic vol] 103.8 fL High 80-94 [facility] Comment on above: Performed By: #### L 501.5200, L100.0100, L500.4050, L501.2300 ####[facility] [address] [place], [address] Monocytes/100 WBC (Bld) 1.4 % Normal 0-10 [facility] Comment on above: Performed By: #### L 501.5200, L100.0100, L500.4050, L501.2300 ####[facility] [address] [place], [address] Neutrophils/100 WBC (Bld) 92.9 % High 47-70 [facility] Comment on above: Performed By: #### L 501.5200, L100.0100, L500.4050, L501.2300 ####[facility] [address] [place], [address] Nucleated RBC (Bld) [#/Vol] 0 10*3/uL Normal 0-5 [facility] Comment on above: Performed By: #### L 501.5200, L100.0100, L500.4050, L501.2300 ####[facility] [address] [place], [address] Platelet mean volume (Bld) [Entitic vol] 9.8 fL Normal 6.2-12.0 [facility] Comment on above: Performed By: #### L 501.5200, L100.0100, L500.4050, L501.2300 ####[facility] [address] [place], [address] Platelets (Bld) [#/Vol] 180 10*3/uL Normal 150-450 [facility] Comment on above: Performed By: #### L 501.5200, L100.0100, L500.4050, L501.2300 ####[facility] [address] [place], [address] RBC (Bld) [#/Vol] 4.00 10*6/uL Low 4.6-6.2 [facility] Comment on above: Performed By: #### L 501.5200, L100.0100, L500.4050, L501.2300 ####[facility] [address] [place], [address] RDW SD 51.4 fl High 35.1-43.9 [facility] Comment on above: Performed By: #### L 501.5200, L100.0100, L500.4050, L501.2300 ####[facility] [address] [place], [address] WBC (Bld) [#/Vol] 9.0 10*3/uL Normal 4.4-11.0 [facility] Comment on above: Performed By: #### L 501.5200, L100.0100, L500.4050, L501.2300 ####[facility] [address] [place], [address] Comprehensive Metabolic [facility] 12-28-2024 Albumin [Mass/Vol] 3.7 g/dL Normal 3.4-4.8 [facility] Comment on above: Performed By: #### L 501.5200, L100.0100, L500.4050, L501.2300 ####[facility] [address] [place], [address] Albumin/Globulin [Mass ratio] 1.0 {ratio} Normal 0.9-2.4 [facility] Comment on above: Performed By: #### L 501.5200, L100.0100, L500.4050, L501.2300 ####[facility] [address] [place], [address] ALK PHOS 149 U/L High 40-129 [facility] Comment on above: Performed By: #### L 501.5200, L100.0100, L500.4050, L501.2300 ####[facility] [address] [place], [address] ALT [Catalytic activity/Vol] 31 U/L Normal <=46 [facility] Comment on above: Performed By: #### L 501.5200, L100.0100, L500.4050, L501.2300 ####[facility] [address] [place], [address] AST [Catalytic activity/Vol] 42 U/L High <=37 [facility] Comment on above: Result Comment: Hemo lysis present, Results??could be affected.?? Performed By: #### L 501.5200, L100.0100, L500.4050, L501.2300 ####[facility] [address] [place], [address] Bilirubin [Mass/Vol] 0.59 mg/dL Normal 0.00-1.30 [facility] Comment on above: Performed By: #### L 501.5200, L100.0100, L500.4050, L501.2300 ####[facility] [address] [place], [address] BUN/CRE 15.6 RATIO Normal 10-20 [facility] Comment on above: Performed By: #### L 501.5200, L100.0100, L500.4050, L501.2300 ####[facility] [address] [place], [address] Calcium [Mass/Vol] 9.0 mg/dL Normal 7.6-11.0 [facility] Comment on above: Performed By: #### L 501.5200, L100.0100, L500.4050, L501.2300 ####[facility] [address] [place], [address] Chloride [Moles/Vol] 105 mmol/L Normal 98-108 [facility] Comment on above: Performed By: #### L 501.5200, L100.0100, L500.4050, L501.2300 ####[facility] [address] [place], [address] CO2 [Moles/Vol] 19.7 mmol/L Low 21.0-32.0 [facility] Comment on above: Performed By: #### L 501.5200, L100.0100, L500.4050, L501.2300 ####[facility] [address] [place], [address] Creatinine [Mass/Vol] 0.69 mg/dL Low 0.70-1.20 [facility] Comment on above: Performed By: #### L 501.5200, L100.0100, L500.4050, L501.2300 ####[facility] [address] [place], [address] ECRCL 94.14 ml/min Normal 50-250 [facility] Comment on above: Performed By: #### L 501.5200, L100.0100, L500.4050, L501.2300 ####[facility] [address] [place], [address] GAP 13 Normal 5-15 [facility] Comment on above: Performed By: #### L 501.5200, L100.0100, L500.4050, L501.2300 ####[facility] [address] [place], [address] GFR/1.73 sq M.predicted among non-blacks MDRD (S/P/Bld) [Vol rate/Area] 97 mL/min/{1.73_m2} Normal >60 [facility] Comment on above: Result Comment: mL/m in/1.73m2 CKD-EPI Creatinine Equation (2020) Performed By: #### L 501.5200, L100.0100, L500.4050, L501.2300 ####[facility] [address] [place], [address] Globulin (S) [Mass/Vol] 3.6 g/dL Normal 2.2-4.2 [facility] Comment on above: Performed By: #### L 501.5200, L100.0100, L500.4050, L501.2300 ####[facility] [address] [place], [address] Glucose [Mass/Vol] 178 mg/dL High 70-99 [facility] Comment on above: Performed By: #### L 501.5200, L100.0100, L500.4050, L501.2300 ####[facility] [address] [place], [address] Potassium [Moles/Vol] 4.3 mmol/L Normal 3.3-5.1 [facility] Comment on above: Result Comment: Hemo lysis present, Results??could be affected.?? Performed By: #### L 501.5200, L100.0100, L500.4050, L501.2300 ####[facility] [address] [place], [address] Sodium [Moles/Vol] 137 mmol/L Normal 133-145 [facility] Comment on above: Performed By: #### L 501.5200, L100.0100, L500.4050, L501.2300 ####[facility] [address] [place], [address] T PROT 7.2 g/dL Normal 5.9-8.4 [facility] Comment on above: Performed By: #### L 501.5200, L100.0100, L500.4050, L501.2300 ####[facility] [address] [place], [address] Urea nitrogen [Mass/Vol] 11 mg/dL Normal 4-19 [facility] Comment on above: Performed By: #### L 501.5200, L100.0100, L500.4050, L501.2300 ####[facility] [address] [place], [place], [address] Consultation - Intensiviston 12-28-2024 Consultation - Cabin Cleaner Normal [facility] Gram stainOrdered By: Mohit Myers on 12-28-2024 Microscopic observation Gram stain Nom (Unsp spec) [facility] IgEOrdered By: Mohit Myers on 12-28-2024 IgE 214 IU/mL 6-495 [facility] Comment on above: Performed at: [facility] [address] [id number] Director: Zafar Browne MD, Phone: [phone] [id number] 12-28-2024 Natriuretic peptide B (Bld) [Mass/Vol] 2229 pg/mL High <=900 [facility] Comment on above: Result Comment: Hear t Failure Unlikely: < 300 pg/mLHeart Failure Likely< 50 Years: > 450 pg/mL50-75 Years: > 900 pg/mL>75 Years: > 1800 pg/mL Performed By: #### L 3200.1600, L3400.5105, L503.7505, L509.7001 ####[facility] [address] [place], [address] L509.7001on 12-28-2024 Procalcitonin 0.18 ng/mL High <=0.10 [facility] Comment on above: Result Comment: Inte rpretation:<0.10-0.25 ng/mL: Antibiotic therapy discouraged. Bacterialinfection unlikely.0.25-0.50 ng/mL: Antibiotic therapy encouraged. Bacterialinfection possible.>0.50 ng/mL: Antibiotic therapy strongly encouraged.Suggestive of presence of bacterial infection.PCT should always be interpreted in the clinical context ofthe patient. Therefore, clinicians should use the PCTresults in conjunction with other laboratory findings andclinical signs of the patient. Performed By: #### L 3200.1600, L3400.5105, L503.7505, L509.7001 ####[facility] [address] [place], [address] Laboratory - Chemistry and C hemistry - challengeOrdered By: Flakita Florentino on 12-28-2024 AST [Catalytic activity/Vol] 42 U/L High <38 [facility] Comment on above: Hemolysis present, R esults could be affected. Magnesiumon 12-28-2024 Magnesium [Mass/Vol] 2.1 mg/dL Normal 1.5-2.2 [facility] Comment on above: Performed By: #### L 501.5200, L100.0100, L500.4050, L501.2300 ####[facility] [address] [place], [address] Magnesium measurement (mass/ volume)Ordered By: Flakita Florentino on 12-28-2024 Magnesium (Unsp spec) [Mass/Vol] 2.1 mg/dL 1.5-2.2 [facility] Microbial respiratory cultur eOrdered By: Mohit Myers on 12-28-2024 Microorganism identified Cx Nom (Unsp spec) Staphylococcus aureus Abnormal [facility] Microorganism identified Cx Nom (Unsp spec) Streptococcus agalactiae (B) Abnormal [facility] Microorganism identified Cx Nom (Unsp spec) Streptococcus group F Abnormal [facility] Natriuretic peptide.B prohor archie N-Terminal [Mass/volume] in Serum or PlasmaOrdered By: Mohit Myers on 12-28-2024 Natriuretic peptide.B prohormone N-Terminal [Mass/Vol] 2229 pg/mL High <900 [facility] Comment on above: Heart Failure Unlike ly: < 300 pg/mLHeart Failure Likely< 50 Years: > 450 pg/mL50-75 Years: > 900 pg/mL>75 Years: > 1800 pg/mL Phosphoruson 12-28-2024 Phosphate [Mass/Vol] 3.3 mg/dL Normal 2.7-4.5 [facility] Comment on above: Performed By: #### L 501.5200, L100.0100, L500.4050, L501.2300 ####[facility] [address] [place], [place], [address] Procalcitonin [Mass/volume] in Serum or Plasma by ImmunoassayOrdered By: Mohit Myers on 12-28-2024 Procalcitonin IA [Mass/Vol] 0.18 ng/mL High <0.11 [facility] Comment on above: Interpretation:<0.10 -0.25 ng/mL: [...] beta-hemolytic Streptococcus or Staphylococcus aureus isolated. Normal [facility] Comment on above: Performed By: #### M 100.2000, M100.2400 ####[facility] [address] [place], [place], [address] Serum globulin measurementOr dered By: Flakita Florentino on 12-28-2024 Globulin (S) [Mass/Vol] 3.6 g/dL 2.2-4.2 [facility] Serum or plasma alanine guevara otransferase (ALT) measurementOrdered By: Flakita Florentino on 12-28-2024 ALT [Catalytic activity/Vol] 31 U/L <47 [facility] Serum or plasma albumin reid urement (mass/volume)Ordered By: Flakita Florentino on 12-28-2024 Albumin [Mass/Vol] 3.7 g/dL 3.4-4.8 [facility] Serum or plasma albumin/glob ulin mass ratioOrdered By: Flakita Florentino on 12-28-2024 Albumin/Globulin [Mass ratio] 1.0 {ratio} 0.9-2.4 [facility] Serum or plasma alkaline adelfo sphatase measurementOrdered By: Flakita Florentino on 12-28-2024 ALP [Catalytic activity/Vol] 149 U/L High 40-129 [facility] Total proteinOrdered By: Dee Florentino on 12-28-2024 Protein [Mass/Vol] 7.2 g/dL 5.9-8.4 [facility] 12 Lead EKGon 12-27-[address] [facility] Absolute lymphocyte countOrd ered By: Marino Holguin on 12-27-2024 Lymphocytes Auto (Unsp spec) [#/Vol] 0.73 10*3/uL Low 0.83-4.51 [facility] Absolute neutrophil countOrd ered By: Marino Holguin on 12-27-2024 Neutrophils (Bld) [#/Vol] 5.0 10*3/uL 2.0-7.7 [facility] Anion gap in Serum or Plasma Ordered By: Marinophilippe Holguin on 12-27-2024 Anion gap [Moles/Vol] 11 mmol/L 5-15 [facility] Assessment of wrist artery p atency prior to arterial punctureOrdered By: Marino Holguin on 12-27-2024 Arterial patency Wrist artery --pre arterial puncture Positive [facility] Automated lymphocyte count a s percentage of total leukocytesOrdered By: Marino Holguin on 12-27-2024 Lymphocytes/100 WBC Auto (Unsp spec) 9.8 % Low 19-41 [facility] BUN/creatinine ratioOrdered By: Marinophilippe Holguin on 12-27-2024 Urea nitrogen/Creatinine [Mass ratio] 14.1 mg/mg 10-20 [facility] Basophil percentageOrdered B y: Marino Holguin on 12-27-2024 Basophils/100 WBC (Bld) 0.8 % 0-1 [facility] Bilirubin, totalOrdered By: Marino Holguin on 12-27-2024 Bilirubin [Mass/Vol] 0.80 mg/dL 0.00-1.30 [facility] Blood Gases by CPSon 025 TATY TEST Positive Normal [facility] Comment on above: Performed By: #### L 8999.0800 ####[facility] [address] [place], [address] Base excess Calc (Bld) [Moles/Vol] 1 mmol/L Normal -2 to +2 [facility] Comment on above: Performed By: #### L 0.0800 ####[facility] [address] [place], [address] Blood Gas Type ART Normal [facility] Comment on above: Performed By: #### L 8999.0800 ####[facility] [address] [place], [address] CO2 [Moles/Vol] 26 mmol/L Normal [facility] Comment on above: Performed By: #### L 8999.0800 ####[facility] [address] [place], [address] [facility] Comment on above: Performed By: #### L 8999.0800 ####[facility] [address] [place], [address] HCO3 (Bld) [Moles/Vol] 24.9 mmol/L Normal 22-26 [facility] Comment on above: Performed By: #### L 8999.0800 ####[facility] [address] [place], [address] [facility] Comment on above: Performed By: #### L 9000.0800 ####[facility] [address] [place], [address] O2 Delivery Dev Adult Vent Normal [facility] Comment on above: Performed By: #### L 8999.0800 ####[facility] [address] [place], [address] pCO2 37.4 mmHg Normal 35-45 [facility] Comment on above: Performed By: #### L 8999.0800 ####[facility] [address] [place], [address] [facility] Comment on above: Performed By: #### L 8999.0800 ####[facility] [address] [place], [address] pH (Bld) 7.43 [pH] Normal 7.35-7.45 [facility] Comment on above: Performed By: #### L 9000.0800 ####[facility] [address] [place], [address] PO2 91 mmHG Normal 75-100 [facility] Comment on above: Performed By: #### L 9000.0800 ####[facility] [address] [place], [address] [facility] Comment on above: Performed By: #### L 9000.0800 ####[facility] [address] [place], [address] SITE L Radial Normal [facility] Comment on above: Performed By: #### L 9000.0800 ####[facility] [address] [place], [address] SO2 97 Normal 95-99 [facility] Comment on above: Performed By: #### L 9000.0800 ####[facility] [address] [place], [address] Vt [address] [facility] Comment on above: Performed By: #### L 9000.0800 ####[facility] [address] [place], [address] Blood base excess determinat ionOrdered By: Marino Holguin on 12-27-2024 Base excess Calc (BldV) [Moles/Vol] 1 mmol/L -2-2 [facility] Blood bicarbonate measuremen tOrdered By: Marino Holguin on 12-27-2024 HCO3 (Bld) [Moles/Vol] 24.9 mmol/L [facility] CBC W/Diff, Automatedon 06-0 Absolute Lymph 0.73 X10 3/uL Low 0.83-4.51 [facility] Comment on above: Performed By: #### L 500.4050, L100.0100, L3400.4350 ####[facility] [address] [place], [address] Absolute Neut 5.0 X10 3/uL Normal 2.0-7.7 [facility] Comment on above: Performed By: #### L 500.4050, L100.0100, L3400.4350 ####[facility] [address] [place], [address] Basophils/100 WBC (Bld) 0.8 % Normal 0-1 [facility] Comment on above: Performed By: #### L 500.4050, L100.0100, L3400.4350 ####[facility] [address] [place], [address] Eosinophils/100 WBC (Bld) 10.8 % High 0-5 [facility] Comment on above: Performed By: #### L 500.4050, L100.0100, L3400.4350 ####[facility] [address] [place], [address] Erythrocyte distribution width (RBC) [Ratio] 13.3 % Normal 11.6-14.6 [facility] Comment on above: Performed By: #### L 500.4050, L100.0100, L3400.4350 ####[facility] [address] [place], [address] Hematocrit (Bld) [Volume fraction] 40.9 % Normal 40-54 [facility] Comment on above: Performed By: #### L 500.4050, L100.0100, L3400.4350 ####[facility] [address] [place], [address] Hemoglobin (Bld) [Mass/Vol] 14.1 g/dL Normal 13.0-16.5 [facility] Comment on above: Performed By: #### L 500.4050, L100.0100, L3400.4350 ####[facility] [address] [place], [address] IG% 0.300 Normal 0.0-0.9 [facility] Comment on above: Result Comment: IG% - Immature Granulocytes (promyelocytes, myelocytes andmetamyelocytes) > 1% indicates that a LEFT SHIFT is Present. Performed By: #### L 500.4050, L100.0100, L3400.4350 ####[facility] [address] [place], [address] Lymphocytes/100 WBC (Bld) 9.8 % Low 19-41 [facility] Comment on above: Performed By: #### L 500.4050, L100.0100, L3400.4350 ####[facility] [address] [place], [address] MCH (RBC) [Entitic mass] 35.7 pg High 27.0-32.0 [facility] Comment on above: Performed By: #### L 500.4050, L100.0100, L3400.4350 ####[facility] [address] [place], [address] MCHC (RBC) [Mass/Vol] 34.5 g/dL Normal 32-36 [facility] Comment on above: Performed By: #### L 500.4050, L100.0100, L3400.4350 ####[facility] [address] [place], [address] MCV (RBC) [Entitic vol] 103.5 fL High 80-94 [facility] Comment on above: Performed By: #### L 500.4050, L100.0100, L3400.4350 ####[facility] [address] [place], [address] Monocytes/100 WBC (Bld) 11.2 % High 0-10 [facility] Comment on above: Performed By: #### L 500.4050, L100.0100, L3400.4350 ####[facility] [address] [place], [address] Neutrophils/100 WBC (Bld) 67.1 % Normal 47-70 [facility] Comment on above: Performed By: #### L 500.4050, L100.0100, [id number] ####[facility] [address] [place], [address] Nucleated RBC (Bld) [#/Vol] 0 10*3/uL Normal 0-5 [facility] Comment on above: Performed By: #### L 500.4050, L100.0100, L3400.4350 ####[facility] [address] [place], [address] Platelet mean volume (Bld) [Entitic vol] 9.7 fL Normal 6.2-12.0 [facility] Comment on above: Performed By: #### L 500.4050, L100.0100, [id number] ####[facility] [address] [place], [address] Platelets (Bld) [#/Vol] 200 10*3/uL Normal 150-450 [facility] Comment on above: Performed By: #### L 500.4050, L100.0100, L3400.4350 ####[facility] [address] [place], [address] RBC (Bld) [#/Vol] 3.95 10*6/uL Low 4.6-6.2 [facility] Comment on above: Performed By: #### L 500.4050, L100.0100, L3400.4350 ####[facility] [address] [place], [address] RDW SD 51.5 fl High 35.1-43.9 [facility] Comment on above: Performed By: #### L 500.4050, L100.0100, L3400.4350 ####[facility] [address] [place], [address] WBC (Bld) [#/Vol] 7.5 10*3/uL Normal 4.4-11.0 [facility] Comment on above: Performed By: #### L 500.4050, L100.0100, L3400.4350 ####[facility] [address] [place], [address] CPK Total, Creatine Kinaseon 12-27-2024 CPK TOTAL 120 U/L Normal 24-195 [facility] Comment on above: Order Comment: Comme nts: DC when propofol is d/c'd Performed By: #### L 501.5000, L501.3620 ####[facility] [address] [place], [address] Carbon dioxide, total [Moles /volume] in Central venous bloodOrdered By: Marino Holguin on 12-27-2024 CO2 [Moles/Vol] 23.1 mmol/L 21.0-32.0 [facility] Chest 1 View (Portable)on Chest 1 View (Portable) Normal [facility] Chloride assayOrdered By: Ug o Holguin on 12-27-2024 Chloride [Moles/Vol] 105 mmol/L 98-108 [facility] Comprehensive Metabolic Prof ilon 12-27-2024 Albumin [Mass/Vol] 4.0 g/dL Normal 3.4-4.8 [facility] Comment on above: Performed By: #### L 500.4050, L100.0100, L3400.4350 ####[facility] [address] [place], [address] Albumin/Globulin [Mass ratio] 1.1 {ratio} Normal 0.9-2.4 [facility] Comment on above: Performed By: #### L 500.4050, L100.0100, L3400.4350 ####[facility] [address] [place], [address] ALK PHOS 151 U/L High 40-129 [facility] Comment on above: Performed By: #### L 500.4050, L100.0100, L3400.4350 ####[facility] [address] [place], [address] ALT [Catalytic activity/Vol] 34 U/L Normal <=46 [facility] Comment on above: Performed By: #### L 500.4050, L100.0100, L3400.4350 ####[facility] [address] [place], [address] AST [Catalytic activity/Vol] 50 U/L High <=37 [facility] Comment on above: Performed By: #### L 500.4050, L100.0100, L3400.4350 ####[facility] [address] [place], [address] Bilirubin [Mass/Vol] 0.80 mg/dL Normal 0.00-1.30 [facility] Comment on above: Performed By: #### L 500.4050, L100.0100, L3400.4350 ####[facility] [address] [place], [address] BUN/CRE 14.1 RATIO Normal 10-20 [facility] Comment on above: Performed By: #### L 500.4050, L100.0100, L3400.4350 ####[facility] [address] [place], [address] Calcium [Mass/Vol] 9.4 mg/dL Normal 7.6-11.0 [facility] Comment on above: Performed By: #### L 500.4050, L100.0100, L3400.4350 ####[facility] [address] [place], [address] Chloride [Moles/Vol] 105 mmol/L Normal 98-108 [facility] Comment on above: Performed By: #### L 500.4050, L100.0100, L3400.4350 ####[facility] [address] [place], [address] CO2 [Moles/Vol] 23.1 mmol/L Normal 21.0-32.0 [facility] Comment on above: Performed By: #### L 500.4050, L100.0100, L3400.4350 ####[facility] [address] [place], [address] Creatinine [Mass/Vol] 0.72 mg/dL Normal 0.70-1.20 [facility] Comment on above: Performed By: #### L 500.4050, L100.0100, L3400.4350 ####[facility] [address] [place], [address] ECRCL 93.74 ml/min Normal 50-250 [facility] Comment on above: Performed By: #### L 500.4050, L100.0100, L3400.4350 ####[facility] [address] [place], [address] GAP 11 Normal 5-15 [facility] Comment on above: Performed By: #### L 500.4050, L100.0100, L3400.4350 ####[facility] [address] [place], [address] GFR/1.73 sq M.predicted among non-blacks MDRD (S/P/Bld) [Vol rate/Area] 96 mL/min/{1.73_m2} Normal >60 [facility] Comment on above: Result Comment: mL/m in/1.73m2 CKD-EPI Creatinine Equation (2020) Performed By: #### L 500.4050, L100.0100, L3400.4350 ####[facility] [address] [place], [address] Globulin (S) [Mass/Vol] 3.5 g/dL Normal 2.2-4.2 [facility] Comment on above: Performed By: #### L 500.4050, L100.0100, L3400.4350 ####[facility] [address] [place], [address] Glucose [Mass/Vol] 95 mg/dL Normal 70-99 [facility] Comment on above: Performed By: #### L 500.4050, L100.0100, L3400.4350 ####[facility] [address] [place], [address] Potassium [Moles/Vol] 4.7 mmol/L Normal 3.3-5.1 [facility] Comment on above: Performed By: #### L 500.4050, L100.0100, L3400.4350 ####[facility] [address] [place], [address] Sodium [Moles/Vol] 139 mmol/L Normal 133-145 [facility] Comment on above: Performed By: #### L 500.4050, L100.0100, L3400.4350 ####[facility] [address] [place], [address] T PROT 7.4 g/dL Normal 5.9-8.4 [facility] Comment on above: Performed By: #### L 500.4050, L100.0100, L3400.4350 ####[facility] [address] [place], [address] Urea nitrogen [Mass/Vol] 10 mg/dL Normal 4-19 [facility] Comment on above: Performed By: #### L 500.4050, L100.0100, L3400.4350 ####[facility] [address] [place], [address] Emergency Department Summary on 12-27-2024 Emergency Department [address] Normal [facility] Eosinophil percentageOrdered By: Marino Holguin on 12-27-2024 Eosinophils/100 WBC (Bld) 10.8 % High 0-5 [facility] Erythrocyte distribution wid th ratioOrdered By: Marino Holguin on 12-27-2024 Erythrocyte distribution width (RBC) [Ratio] 13.3 % 11.6-14.6 [facility] Erythrocyte distribution wid th standard deviationOrdered By: Marino Holguin on 12-27-2024 Erythrocyte distribution width (RBC) [Ratio] 51.5 fl High 35.1-43.9 [facility] Glomerular filtration rate ( GFR) estimation/1.73 sq m using serum, plasma, or whole bOrdered By: Marino Holguin on 12-27-2024 GFR/1.73 sq M.predicted among non-blacks MDRD (S/P/Bld) [Vol rate/Area] 96 mL/min/{1.73_m2} >60 [facility] Comment on above: mL/min/1.73m2 CKD-EP I Creatinine Equation (2020) Gram stainOrdered By: Marino choudhary on 12-27-2024 Microscopic observation Gram stain Nom (Unsp spec) [facility] H AND P Exam - Hospitaliston 12-27-2024 H&P Exam - Hospitalist Normal [facility] Hematocrit Auto (Bld) [Volum e fraction]Ordered By: Marino Holguin on 12-27-2024 Hematocrit (Bld) [Volume fraction] 40.9 % 40-54 [facility] Hemoglobin measurementOrdere d By: Marino Holguin on 12-27-2024 Hemoglobin (Bld) [Mass/Vol] 14.1 g/dL 13.0-16.5 [facility] Immature granulocytes/100 WB C Auto (Bld)Ordered By: Marino Holguin on 12-27-2024 Immature granulocytes/100 WBC (Bld) 0.300 % 0.0-0.9 [facility] Comment on above: IG% - Immature Granu locytes (promyelocytes, myelocytes and metamyelocytes) > 1% indicates that a LEFT SHIFT is Present. Laboratory - Chemistry and C hemistry - challengeOrdered By: Marino Holguin on 12-27-2024 AST [Catalytic activity/Vol] 50 U/L High <38 [facility] MCV (mean corpuscular volume ) determinationOrdered By: Marino Holguin on 12-27-2024 MCV (RBC) [Entitic vol] 103.5 fL High 80-94 [facility] Mean corpuscular hemoglobin (MCH) determinationOrdered By: Marino Holguin on 12-27-2024 MCH (RBC) [Entitic mass] 35.7 pg High 27.0-32.0 [facility] Mean corpuscular hemoglobin concentration (MCHC) determinationOrdered By: Marino Holguin on 12-27-2024 MCHC (RBC) [Mass/Vol] 34.5 g/dL 32-36 [facility] Mean platelet volume determi nationOrdered By: Marino Holguin on 12-27-2024 Platelet mean volume (Bld) [Entitic vol] 9.7 fL 6.2-12.0 [facility] Measurement, pHOrdered By: Michael Holguin on 12-27-2024 pH (Unsp spec) 7.43 [pH] 7.35-7.45 [facility] Microbial respiratory cultur eOrdered By: Marino Holguin on 12-27-2024 Microorganism identified Cx Nom (Unsp spec) or Staphylococcus aureus isolated. [facility] Monocyte percentageOrdered B y: Marino Holguin on 12-27-2024 Monocytes/100 WBC (Bld) 11.2 % High 0-10 [facility] Neutrophil percentageOrdered By: Marino Holguin on 12-27-2024 Neutrophils/100 WBC (Bld) 67.1 % 47-70 [facility] No Panel InformationOrdered By: Marino Holguin on 12-27-2024 Bedside Blood Gas PEEP 5 [facility] Blood Gas Respiration Rate 14 [facility] Blood Gas Sample Site L Radial [facility] Blood Gas Specimen Type ART [facility] Blood Gas Tidal Volume 500.[address] [facility] Blood Gas Vent Mode AC Woost er [facility] Oxygen Delivery Device Adult Vent [facility] Nucleated red blood cell per centageOrdered By: Marino Holguin on 12-27-2024 Nucleated RBC/100 WBC (Bld) [Ratio] 0 % 0-5 [facility] Platelet countOrdered By: Jake Holguin on 12-27-2024 Platelets (Bld) [#/Vol] 200 10*3/uL 150-450 [facility] Potassium measurement (mass/ volume)Ordered By: Marino Holguin on 12-27-2024 Potassium (Unsp spec) [Mass/Vol] 4.7 mmol/L 3.3-5.1 [facility] RBC Auto (Bld) [#/Vol]Ordere d By: Marino Holguin on 12-27-2024 RBC (Bld) [#/Vol] 3.95 10*6/uL Low 4.6-6.2 [facility] Serum creatinine measurement (mass/volume)Ordered By: Marino Holguin on 12-27-2024 Creatinine [Mass/Vol] 0.72 mg/dL 0.70-1.20 [facility] Serum globulin measurementOr dered By: Marino Holguin on 12-27-2024 Globulin (S) [Mass/Vol] 3.5 g/dL 2.2-4.2 [facility] Serum glucose measurement (m ass/volume)Ordered By: Marino Holguin on 12-27-2024 Glucose [Mass/Vol] 95 mg/dL 70-99 [facility] Serum or plasma alanine guevara otransferase (ALT) measurementOrdered By: Marino Holguin 12-27-2024 ALT [Catalytic activity/Vol] 34 U/L <47 [facility] Serum or plasma albumin reid urement (mass/volume)Ordered By: Marino Holguin 12-27-2024 Albumin [Mass/Vol] 4.0 g/dL 3.4-4.8 [facility] Serum or plasma albumin/glob ulin mass ratioOrdered By: Marino Holguin 12-27-2024 Albumin/Globulin [Mass ratio] 1.1 {ratio} 0.9-2.4 [facility] Serum or plasma alkaline adelfo sphatase measurementOrdered By: Marino Holguin 12-27-2024 ALP [Catalytic activity/Vol] 151 U/L High 40-129 [facility] Serum or plasma calcium reid urement (mass/volume)Ordered By: Marino Holguin 12-27-2024 Calcium [Mass/Vol] 9.4 mg/dL 7.6-11.0 [facility] Serum or plasma creatine kin ase activityOrdered By: Marino Holguin on 12-27-2024 CK [Catalytic activity/Vol] 120 U/L 24-195 [facility] Serum or plasma functional c omplement C1 esterase inhibitor detectionOrdered By: Marino Holguin on 12-27-2024 Complement C1 esterase inhibitor.functional Ql [address] [facility] Comment on above: Result Units: %mean normal Abnormal <41 Equivocal 41 - 67 Normal >67Performed at: - [facility] [id number] Director: Zafar Browne MD, Phone: [phone] Serum or plasma urea nitroge n measurement (mass/volume)Ordered By: Marino Holguin on 12-27-2024 Urea nitrogen [Mass/Vol] 10 mg/dL 4-19 [facility] Sodium levelOrdered By: Marino Holguin on 12-27-2024 Sodium [Moles/Vol] 139 mmol/L 133-145 [facility] Total carbon dioxide measure mentOrdered By: Marino Holguin on 12-27-2024 CO2 [Moles/Vol] 26 mmol/L [facility] Total proteinOrdered By: Marino Holguin on 12-27-2024 Protein [Mass/Vol] 7.4 g/dL 5.9-8.4 [facility] Triglycerideson 12-27-2024 Triglyceride [Mass/Vol] 131 mg/dL Normal [facility] Comment on above: Order Comment: Comme nts: DC when propofol is d/c'dDC when propofol is d/c'd Result Comment: The drugs N-Acetylcysteine and Metamizole may falselydepress this assay.Normal range: <150 mg/dLBorderline High: 150-199 mg/dLHigh: 200-499 mg/dLVery High: >500 mg/dL Performed By: #### L 501.5000, L501.3620 ####[facility] [address] [place], [address] Triglycerides measurementOrd ered By: Marino Holguin on 12-27-2024 Triglyceride [Mass/Vol] 131 mg/dL <199 [facility] Comment on above: The drugs N-Acetylcy steine and Metamizole may falsely depress this assay. Normal range: <150 mg/dLBorderline High: 150-199 mg/dLHigh: 200-499 mg/dLVery High: >500 mg/dL White blood cell (WBC) count Ordered By: Marino Holguin on 12-27-2024 WBC (Bld) [#/Vol] 7.5 10*3/uL 4.4-11.0 [facility] CNOVon 12-23-2024 CNOV Office Visit (NEMOWS ) -- NAZARIO HUTTON ([id number]) 1950 M Date Time Provider Department 12/23/24 [...] (AI) Davin (more content not included)... 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 Accessioner: PSCB Transcribe Date/Time: Nov 07 2024 5:22A Dictated by : LESTER LOPES MD This examination was interpreted and the report reviewed and electronically signed by: LESTER LOPES MD on Nov 07 2024 5:23AM EST [id number] Normal [facility] Absolute lymphocyte countOrd ered By: Shubham Blanco on 11-05-2024 Lymphocytes Auto (Unsp spec) [#/Vol] 0.68 10*3/uL Low 0.83-4.51 [facility] Absolute neutrophil countOrd ered By: Shubham Blanco on 11-05-2024 Neutrophils (Bld) [#/Vol] 5.6 10*3/uL 2.0-7.7 [facility] Ammoniaon 11-05-2024 Ammonia (P) [Moles/Vol] 35.6 umol/L Normal 16-60 [facility] Comment on above: Performed By: #### L 500.4050, L300.3900, L501.6710, L100.0100, L503.5510, L500.4100 ####[facility] [address] [place], [address] Anion gap in Serum or Plasma Ordered By: Shubham Blanco on 11-05-2024 Anion gap [Moles/Vol] 11 mmol/L 5-15 [facility] Automated lymphocyte count a s percentage of total leukocytesOrdered By: Shubham Blanco on 11-05-2024 Lymphocytes/100 WBC Auto (Unsp spec) 8.4 % Low 19-41 [facility] BUN/creatinine ratioOrdered By: Shubham Blanco on 11-05-2024 Urea nitrogen/Creatinine [Mass ratio] 19.6 mg/mg 10-20 [facility] Basophil percentageOrdered B y: Shubham Blanco on 11-05-2024 Basophils/100 WBC (Bld) 0.4 % 0-1 [facility] Bilirubin, totalOrdered By: Shubham Blanco on 11-05-2024 Bilirubin [Mass/Vol] 0.89 mg/dL 0.00-1.30 [facility] CBC W/Diff, Automatedon 04- Absolute Lymph 0.68 X10 3/uL Low 0.83-4.51 [facility] Comment on above: Performed By: #### L 500.4050, L300.3900, L501.6710, L100.0100, L503.5510, L500.4100 ####[facility] [address] [place], [address] Absolute Neut 5.6 X10 3/uL Normal 2.0-7.7 [facility] Comment on above: Performed By: #### L 500.4050, L300.3900, L501.6710, L100.0100, L503.5510, L500.4100 ####[facility] [address] [place], [address] Basophils/100 WBC (Bld) 0.4 % Normal 0-1 [facility] Comment on above: Performed By: #### L 500.4050, L300.3900, L501.6710, L100.0100, L503.5510, L500.4100 ####[facility] [address] [place], [address] Eosinophils/100 WBC (Bld) 7.3 % High 0-5 [facility] Comment on above: Performed By: #### L 500.4050, L300.3900, L501.6710, L100.0100, L503.5510, L500.4100 ####[facility] [address] [place], [address] Erythrocyte distribution width (RBC) [Ratio] 13.6 % Normal 11.6-14.6 [facility] Comment on above: Performed By: #### L 500.4050, L300.3900, L501.6710, L100.0100, L503.5510, L500.4100 ####[facility] [address] [place], [address] Hematocrit (Bld) [Volume fraction] 37.7 % Low 40-54 [facility] Comment on above: Performed By: #### L 500.4050, L300.3900, L501.6710, L100.0100, L503.5510, L500.4100 ####[facility] [address] [place], [address] Hemoglobin (Bld) [Mass/Vol] 13.2 g/dL Normal 13.0-16.5 [facility] Comment on above: Performed By: #### L 500.4050, L300.3900, L501.6710, L100.0100, L503.5510, L500.4100 ####[facility] [address] [place], [address] IG% 0.100 Normal 0.0-0.9 [facility] Comment on above: Result Comment: IG% - Immature Granulocytes (promyelocytes, myelocytes andmetamyelocytes) > 1% indicates that a LEFT SHIFT is Present. Performed By: #### L 500.4050, L300.3900, L501.6710, L100.0100, L503.5510, L500.4100 ####[facility] [address] [place], [address] Lymphocytes/100 WBC (Bld) 8.4 % Low 19-41 [facility] Comment on above: Performed By: #### L 500.4050, L300.3900, L501.6710, L100.0100, L503.5510, L500.4100 ####[facility] [address] [place], [address] MCH (RBC) [Entitic mass] 35.3 pg High 27.0-32.0 [facility] Comment on above: Performed By: #### L 500.4050, L300.3900, L501.6710, L100.0100, L503.5510, L500.4100 ####[facility] [address] [place], [address] MCHC (RBC) [Mass/Vol] 35.0 g/dL Normal 32-36 [facility] Comment on above: Performed By: #### L 500.4050, L300.3900, L501.6710, L100.0100, L503.5510, L500.4100 ####[facility] [address] [place], [address] MCV (RBC) [Entitic vol] 100.8 fL High 80-94 [facility] Comment on above: Performed By: #### L 500.4050, L300.3900, L501.6710, L100.0100, L503.5510, L500.4100 ####[facility] [address] [place], [address] Monocytes/100 WBC (Bld) 15.3 % High 0-10 [facility] Comment on above: Performed By: #### L 500.4050, L300.3900, L501.6710, L100.0100, L503.5510, L500.4100 ####[facility] [address] [place], [address] Neutrophils/100 WBC (Bld) 68.5 % Normal 47-70 [facility] Comment on above: Performed By: #### L 500.4050, L300.3900, L501.6710, L100.0100, L503.5510, L500.4100 ####[facility] [address] [place], [address] Nucleated RBC (Bld) [#/Vol] 0 10*3/uL Normal 0-5 [facility] Comment on above: Performed By: #### L 500.4050, L300.3900, L501.6710, L100.0100, L503.5510, L500.4100 ####[facility] [address] [place], [address] Platelet mean volume (Bld) [Entitic vol] 9.7 fL Normal 6.2-12.0 [facility] Comment on above: Performed By: #### L 500.4050, L300.3900, L501.6710, L100.0100, L503.5510, L500.4100 ####[facility] [address] [place], [address] Platelets (Bld) [#/Vol] 239 10*3/uL Normal 150-450 [facility] Comment on above: Performed By: #### L 500.4050, L300.3900, L501.6710, L100.0100, L503.5510, L500.4100 ####[facility] [address] [place], [address] RBC (Bld) [#/Vol] 3.74 10*6/uL Low 4.6-6.2 [facility] Comment on above: Performed By: #### L 500.4050, L300.3900, L501.6710, L100.0100, L503.5510, L500.4100 ####[facility] [address] [place], [address] RDW SD 50.2 fl High 35.1-43.9 [facility] Comment on above: Performed By: #### L 500.4050, L300.3900, L501.6710, L100.0100, L503.5510, L500.4100 ####[facility] [address] [place], [address] WBC (Bld) [#/Vol] 8.1 10*3/uL Normal 4.4-11.0 [facility] Comment on above: Performed By: #### L 500.4050, L300.3900, L501.6710, L100.0100, L503.5510, L500.4100 ####[facility] [address] [place], [address] CRPon 11-05-2024 C-REACTIVE PROT 6.19 mg/L High 0.0-3.0 [facility] Comment on above: Performed By: #### L 500.4050, L300.3900, L501.6710, L100.0100, L503.5510, L500.4100 ####[facility] [address] [place], [place], [id number] CRP [Mass/Vol]Ordered By: Tessa Blanco on 11-05-2024 C-Reactive Protein Extended Range 6.19 mg/L High 0.0-3.0 [facility] Calculated very low density lipoprotein (VLDL) cholesterol measurementOrdered By: Shubham Blanco on 11-05-2024 Calculated very low density lipoprotein (VLDL) cholesterol measurement 19 mg/dL 5-40 [facility] VLDL Cholesterol 19 mg/dL 5-40 [facility] Carbon dioxide, total [Moles /volume] in Central venous bloodOrdered By: Shubham Blanco on 11-05-2024 CO2 [Moles/Vol] 21.0 mmol/L 21.0-32.0 [facility] Cardiology Visit Reporton Cardiology Visit Report Normal [facility] Chloride assayOrdered By: Tessa Blanco on 11-05-2024 Chloride [Moles/Vol] 104 mmol/L 98-108 [facility] Comprehensive Metabolic Prof ilon 11-05-2024 Albumin [Mass/Vol] 4.1 g/dL Normal 3.4-4.8 [facility] Comment on above: Performed By: #### L 500.4050, L300.3900, L501.6710, L100.0100, L503.5510, L500.4100 ####[facility] [address] [place], [address] Albumin/Globulin [Mass ratio] 1.2 {ratio} Normal 0.9-2.4 [facility] Comment on above: Performed By: #### L 500.4050, L300.3900, L501.6710, L100.0100, L503.5510, L500.4100 ####[facility] [address] [place], [address] ALK PHOS 141 U/L High 40-129 [facility] Comment on above: Performed By: #### L 500.4050, L300.3900, L501.6710, L100.0100, L503.5510, L500.4100 ####[facility] [address] [place], [address] ALT [Catalytic activity/Vol] 32 U/L Normal <=46 [facility] Comment on above: Performed By: #### L 500.4050, L300.3900, L501.6710, L100.0100, L503.5510, L500.4100 ####[facility] [address] [place], [address] AST [Catalytic activity/Vol] 41 U/L High <=37 [facility] Comment on above: Performed By: #### L 500.4050, L300.3900, L501.6710, L100.0100, L503.5510, L500.4100 ####[facility] [address] [place], [address] Bilirubin [Mass/Vol] 0.89 mg/dL Normal 0.00-1.30 [facility] Comment on above: Performed By: #### L 500.4050, L300.3900, L501.6710, L100.0100, L503.5510, L500.4100 ####[facility] [address] [place], [address] BUN/CRE 19.6 RATIO Normal 10-20 [facility] Comment on above: Performed By: #### L 500.4050, L300.3900, L501.6710, L100.0100, L503.5510, L500.4100 ####[facility] [address] [place], [address] Calcium [Mass/Vol] 9.8 mg/dL Normal 7.6-11.0 [facility] Comment on above: Performed By: #### L 500.4050, L300.3900, L501.6710, L100.0100, L503.5510, L500.4100 ####[facility] [address] [place], [address] Chloride [Moles/Vol] 104 mmol/L Normal 98-108 [facility] Comment on above: Performed By: #### L 500.4050, L300.3900, L501.6710, L100.0100, L503.5510, L500.4100 ####[facility] [address] [place], [address] CO2 [Moles/Vol] 21.0 mmol/L Normal 21.0-32.0 [facility] Comment on above: Performed By: #### L 500.4050, L300.3900, L501.6710, L100.0100, L503.5510, L500.4100 ####[facility] [address] [place], [address] Creatinine [Mass/Vol] 0.80 mg/dL Normal 0.70-1.20 [facility] Comment on above: Performed By: #### L 500.4050, L300.3900, L501.6710, L100.0100, L503.5510, L500.4100 ####[facility] [address] [place], [address] GAP 11 Normal 5-15 [facility] Comment on above: Performed By: #### L 500.4050, L300.3900, L501.6710, L100.0100, L503.5510, L500.4100 ####[facility] [address] [place], [address] GFR/1.73 sq M.predicted among non-blacks MDRD (S/P/Bld) [Vol rate/Area] 93 mL/min/{1.73_m2} Normal >60 [facility] Comment on above: Result Comment: mL/m in/1.73m2 CKD-EPI Creatinine Equation (2020) Performed By: #### L 500.4050, L300.3900, L501.6710, L100.0100, L503.5510, L500.4100 ####[facility] [address] [place], [address] Globulin (S) [Mass/Vol] 3.4 g/dL Normal 2.2-4.2 [facility] Comment on above: Performed By: #### L 500.4050, L300.3900, L501.6710, L100.0100, L503.5510, L500.4100 ####[facility] [address] [place], [address] Glucose [Mass/Vol] 95 mg/dL Normal 70-99 [facility] Comment on above: Performed By: #### L 500.4050, L300.3900, L501.6710, L100.0100, L503.5510, L500.4100 ####[facility] [address] [place], [address] Potassium [Moles/Vol] 5.0 mmol/L Normal 3.3-5.1 [facility] Comment on above: Performed By: #### L 500.4050, L300.3900, L501.6710, L100.0100, L503.5510, L500.4100 ####[facility] [address] [place], [address] Sodium [Moles/Vol] 136 mmol/L Normal 133-145 [facility] Comment on above: Performed By: #### L 500.4050, L300.3900, L501.6710, L100.0100, L503.5510, L500.4100 ####[facility] [address] [place], [address] T PROT 7.4 g/dL Normal 5.9-8.4 [facility] Comment on above: Performed By: #### L 500.4050, L300.3900, L501.6710, L100.0100, L503.5510, L500.4100 ####[facility] [address] [place], [address] Urea nitrogen [Mass/Vol] 16 mg/dL Normal 4-19 [facility] Comment on above: Performed By: #### L 500.4050, L300.3900, L501.6710, L100.0100, L503.5510, L500.4100 ####[facility] [address] [place], [address] Eosinophil percentageOrdered By: Shubham Blanco on 11-05-2024 Eosinophils/100 WBC (Bld) 7.3 % High 0-5 [facility] Erythrocyte distribution wid th (RBC) [Ratio]Ordered By: Shubham Blanco on 11-05-2024 Erythrocyte distribution width (RBC) [Entitic vol] 50.2 fL High 35.1-43.9 [facility] Erythrocyte distribution wid th ratioOrdered By: Shubham Blanco on 11-05-2024 Erythrocyte distribution width (RBC) [Ratio] 13.6 % 11.6-14.6 [facility] Erythrocyte distribution wid th standard deviationOrdered By: Shubhamlarry Blanco on 11-05-2024 Erythrocyte distribution width (RBC) [Ratio] 50.2 fl High 35.1-43.9 [facility] GFR/1.73 sq M.predicted judson g non-blacks MDRD (S/P/Bld) [Vol rate/Area]Ordered By: Shubham Blanco on 11-05-2024 Estimated GFR (MDRD) Non-Af Amer [address] >[address] [facility] Comment on above: mL/min/1.73m2 CKD-EP I Creatinine Equation (2020) Glomerular filtration rate ( GFR) estimation/1.73 sq m using serum, plasma, or whole bOrdered By: Shubham Blanco on 11-05-2024 GFR/1.73 sq M.predicted among non-blacks MDRD (S/P/Bld) [Vol rate/Area] 93 mL/min/{1.73_m2} >60 [facility] Comment on above: mL/min/1.73m2 CKD-EP I Creatinine Equation (2020) Hematocrit Auto (Bld) [Volum e fraction]Ordered By: Shubham Blanco on 11-05-2024 Hematocrit (Bld) [Volume fraction] 37.7 % Low 40-54 [facility] Hemoglobin measurementOrdere d By: Shubham Blanco on 11-05-2024 Hemoglobin (Bld) [Mass/Vol] 13.2 g/dL 13.0-16.5 [facility] Immature granulocytes/100 WB C Auto (Bld)Ordered By: Shubham Blanco on 11-05-2024 Immature granulocytes/100 WBC (Bld) 0.100 % 0.0-0.9 [facility] Comment on above: IG% - Immature Granu locytes (promyelocytes, myelocytes and metamyelocytes) > 1% indicates that a LEFT SHIFT is Present. International normalized rat io (INR) calculationOrdered By: Shubham Blanco on 11-05-2024 INR Coag (Bld) [Relative time] 1.0 {INR} [facility] LDL calc ser/plasOrdered By: Shubham Blanco on 11-05-2024 Cholesterol in LDL [Mass/Vol] 85 mg/dL [facility] Comment on above: Kkojmlowgn=479-163 m g/dL & Higher Bqxg=445 mg/dL or greater LDL Cholesterol, Calculated 85 mg/dL [facility] Comment on above: Ngcfjssjtc=583-340 m g/dL & Higher Uppy=054 mg/dL or greater Laboratory - Chemistry and C hemistry - challengeOrdered By: Shubham Blanco on 11-05-2024 AST [Catalytic activity/Vol] 41 U/L High <38 [facility] Lipid Profileon 11-05-2024 CHOL:HDL 2.[address] [facility] Comment on above: Performed By: #### L 500.4050, L300.3900, L501.6710, L100.0100, L503.5510, L500.4100 ####[facility] [address] [place], [address] Cholesterol [Mass/Vol] 158 mg/dL Normal <=200 [facility] Comment on above: Result Comment: Chol esterol level, Desirable <200 mg/dLBorderline high cholesterol 200-239 mg/dLHigh cholesterol >=240 mg/dLRecommendations of the NCEP Adult Treatment Panel for thefollowing risk-cutoff thresholds for the [place] American[place]. Performed By: #### L 500.4050, L300.3900, L501.6710, L100.0100, L503.5510, L500.4100 ####[facility] [address] [place], [address] Cholesterol in HDL [Mass/Vol] 54 mg/dL Normal [facility] Comment on above: Result Comment: Jayleen onal Cholesterol Education Program (NCEP) guidelines:<40 mg/dL: Low HDL-cholesterol (major risk factor for CHD)>= 60 mg/dL: High HDL-cholesterol (negative risk factor forCHD)HDL-cholesterol is affected by a number of factors, e.g.smoking, exercise, hormones, sex and age. Performed By: #### L 500.4050, L300.3900, L501.6710, L100.0100, L503.5510, L500.4100 ####[facility] [address] [place], [address] Cholesterol in LDL [Mass/Vol] 85 mg/dL Normal [facility] Comment on above: Result Comment: Bord nsdopn=124-965 mg/dL Higher Qphq=871 mg/dL or greater Performed By: #### L 500.4050, L300.3900, L501.6710, L100.0100, L503.5510, L500.4100 ####[facility] [address] [place], [address] Cholesterol in VLDL [Mass/Vol] 19 mg/dL Normal 5-40 [facility] Comment on above: Performed By: #### L 500.4050, L300.3900, L501.6710, L100.0100, L503.5510, L500.4100 ####[facility] [address] [place], [address] Triglyceride [Mass/Vol] 94 mg/dL Normal [facility] Comment on above: Result Comment: The drugs N-Acetylcysteine and Metamizole may falselydepress this assay.Normal range: <150 mg/dLBorderline High: 150-199 mg/dLHigh: 200-499 mg/dLVery High: >500 mg/dL Performed By: #### L 500.4050, L300.3900, L501.6710, L100.0100, L503.5510, L500.4100 ####[facility] [address] [place], [address] Lymphocytes Auto (Unsp spec) [#/Vol]Ordered By: Shubham Blanco on 11-05-2024 Lymphocytes (Bld) [#/Vol] 0.68 10*3/uL Low 0.83-4.51 [facility] Lymphocytes/100 WBC Auto (Un sp spec)Ordered By: Shubham Blanco on 11-05-2024 Lymphocytes/100 WBC (Bld) 8.4 % Low 19-41 [facility] MCV (mean corpuscular volume ) determinationOrdered By: Shubham Blanco on 11-05-2024 MCV (RBC) [Entitic vol] 100.8 fL High 80-94 [facility] Mean corpuscular hemoglobin (MCH) determinationOrdered By: Shubham Blanco on 11-05-2024 MCH (RBC) [Entitic mass] 35.3 pg High 27.0-32.0 [facility] Mean corpuscular hemoglobin concentration (MCHC) determinationOrdered By: Shubham Blanco on 11-05-2024 MCHC (RBC) [Mass/Vol] 35.0 g/dL 32-36 [facility] Mean platelet volume determi nationOrdered By: Shubham Blanco on 11-05-2024 Platelet mean volume (Bld) [Entitic vol] 9.7 fL 6.2-12.0 [facility] Monocyte percentageOrdered B y: Shubham Blanco on 11-05-2024 Monocytes/100 WBC (Bld) 15.3 % High 0-10 [facility] Neutrophil percentageOrdered By: Shubham Blanco on 11-05-2024 Neutrophils/100 WBC (Bld) 68.5 % 47-70 [facility] Nucleated red blood cell per centageOrdered By: Shubham Blanco on 11-05-2024 Nucleated RBC/100 WBC (Bld) [Ratio] 0 % 0-5 [facility] Platelet countOrdered By: Tessa Blanco on 11-05-2024 Platelets (Bld) [#/Vol] 239 10*3/uL 150-450 [facility] Potassium (Unsp spec) [Mass/ Vol]Ordered By: Shubham Blanco on 11-05-2024 Potassium [Moles/Vol] 5.0 mmol/L 3.3-5.1 [facility] Potassium measurement (mass/ volume)Ordered By: Shubham Blanco on 11-05-2024 Potassium (Unsp spec) [Mass/Vol] 5.0 mmol/L 3.3-5.1 [facility] Prothrombin Time w/INRon INR Coag (PPP) [Relative time] 1.0 {INR} Normal [facility] Comment on above: Performed By: #### L 500.4050, L300.3900, L501.6710, L100.0100, L503.5510, L500.4100 ####[facility] [address] [place], [address] PT Coag (PPP) [Time] 13.7 s Normal 11.7-14.9 [facility] Comment on above: Performed By: #### L 500.4050, L300.3900, L501.6710, L100.0100, L503.5510, L500.4100 ####[facility] [address] [place], [address] Prothrombin timeOrdered By: Shubham Blanco on 11-05-2024 PT Coag (PPP) [Time] 13.7 s 11.7-14.9 [facility] RBC Auto (Bld) [#/Vol]Ordere d By: Shubham Blanco on 11-05-2024 RBC (Bld) [#/Vol] 3.74 10*6/uL Low 4.6-6.2 [facility] Screening total cholesterol/ high density lipoprotein (HDL) cholesterol ratioOrdered By: Shubham Blanco on 11-05-2024 Cholesterol.total/Cho lesterol in HDL [Mass ratio] 2.92 {ratio} [facility] Serum creatinine measurement (mass/volume)Ordered By: Shubham Blanco on 11-05-2024 Creatinine [Mass/Vol] 0.80 mg/dL 0.70-1.20 [facility] Serum globulin measurementOr dered By: Shubham Blanco on 11-05-2024 Globulin (S) [Mass/Vol] 3.4 g/dL 2.2-4.2 [facility] Serum glucose measurement (m ass/volume)Ordered By: Shubham Blanco on 11-05-2024 Glucose [Mass/Vol] 95 mg/dL 70-99 [facility] Serum or plasma C reactive p rotein measurement (mass/volume)Ordered By: Shubham Blanco on 11-05-2024 CRP [Mass/Vol] 6.19 mg/L High 0.0-3.0 [facility] Serum or plasma alanine guevara otransferase (ALT) measurementOrdered By: Shubham Blanco on 11-05-2024 ALT [Catalytic activity/Vol] 32 U/L <47 [facility] Serum or plasma albumin reid urement (mass/volume)Ordered By: Shubham Blanco on 11-05-2024 Albumin [Mass/Vol] 4.1 g/dL 3.4-4.8 [facility] Serum or plasma albumin/glob ulin mass ratioOrdered By: Shubham Blanco on 11-05-2024 Albumin/Globulin [Mass ratio] 1.2 {ratio} 0.9-2.4 [facility] Serum or plasma alkaline adelfo sphatase measurementOrdered By: Shubham Blanco on 11-05-2024 ALP [Catalytic activity/Vol] 141 U/L High 40-129 [facility] Serum or plasma calcium reid urement (mass/volume)Ordered By: Shubham Blanco on 11-05-2024 Calcium [Mass/Vol] 9.8 mg/dL 7.6-11.0 [facility] Serum or plasma cholesterol in HDL measurement (mass/volume)Ordered By: Shubham Blanco on 11-05-2024 Cholesterol in HDL [Mass/Vol] 54 mg/dL >40 [facility] Comment on above: National Cholesterol Education Program (NCEP) guidelines:<40 mg/dL: Low HDL-cholesterol (major risk factor for CHD)>= 60 mg/dL: High HDL-cholesterol (negative risk factor for CHD)HDL-cholesterol is affected by a number of factors, e.g. smoking, exercise, hormones, sex and age. Serum or plasma cholesterol measurement (mass/volume)Ordered By: Shubham Blanco on 11-05-2024 Cholesterol [Mass/Vol] 158 mg/dL <201 [facility] Comment on above: Cholesterol level, D esirable <200 mg/dLBorderline high cholesterol 200-239 mg/dLHigh cholesterol >=240 mg/dLRecommendations of the NCEP Adult Treatment Panel for the following risk-cutoff thresholds for the [place] population. Serum or plasma urea nitroge n measurement (mass/volume)Ordered By: Shubham Blanco on 11-05-2024 Urea nitrogen [Mass/Vol] 16 mg/dL 4-19 [facility] Sodium levelOrdered By: Nilda Blanco on 11-05-2024 Sodium [Moles/Vol] 136 mmol/L 133-145 [facility] Total proteinOrdered By: Gennaro Blanco on 11-05-2024 Protein [Mass/Vol] 7.4 g/dL 5.9-8.4 [facility] Triglycerides measurementOrd ered By: Shubham Blanco on 11-05-2024 Triglyceride [Mass/Vol] 94 mg/dL <199 [facility] Comment on above: The drugs N-Acetylcy steine and Metamizole may falsely depress this assay. Normal range: <150 mg/dLBorderline High: 150-199 mg/dLHigh: 200-499 mg/dLVery High: >500 mg/dL Venous blood ammonia measure mentOrdered By: Shubham Blanco on 11-05-2024 Ammonia (P) [Moles/Vol] 35.6 umol/L 16-60 [facility] White blood cell (WBC) count Ordered By: Shubham Blanco on 11-05-2024 WBC (Bld) [#/Vol] 8.1 10*3/uL 4.4-11.0 [facility] CNOVon 11-01-2024 CNOV Office Visit (FAMPWS ) -- NAZARIO HUTTON ([id number]) 1950 M Date Time Provider Department 11/01/24 11:00 AM NI SAUCEDACARMITA During your visit today, we recorded the following information about you: Blood pressure Weight 129/73 93 kg Ni Sauceda, SUNIL.MOTHER'S HELPER 11/01/2024 11:30 AM Signed Chief Complaint Patient presents with: 6 Month Exam HPI Nazario Matiasamandojerrod is a 74 year old male who [...] due to lower GI bleed from diverticulosis) 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 Normal [facility] 25(OH)D3 RichardIsela 2024 25-hydroxyvitamin D3 [Mass/Vol] 38.5 ng/mL Normal 31.0-80.0 [facility] Comment on above: Order Comment: Speci men Type: BLOOD SPECIMENOrdering Facility: [facility] Address: [address] [place] [address] [place] [address] Result Comment: Clas sification of 25 [place] Vitamin D status: Deficiency/Insufficiency: < or = 30 ng/ml. Sufficiency/Optimal Levels: 31-80 ng/mL Toxicity: > 100 ng/mL. Test performed by chemiluminescent immunoassay. Performed By: #### 1 989-3 ####[facility] [id number] [place] [address] [place] C3 SerPl-mCncon 10-30-2024 Complement C3 [Mass/Vol] 173 mg/dL High 86-166 [facility] Comment on above: Order Comment: Speci men Type: BLOOD SPECIMEN Ordering Facility: [facility] Address: [address] [place] [address] Performed By: #### 4 498-2 #### [facility] CLIA [id number] [address] [place] [address] [place] C4 SerPl-mCncon 10-30-2024 Complement C4 [Mass/Vol] 32 mg/dL Normal 13-46 [facility] Comment on above: Order Comment: Speci men Type: BLOOD SPECIMEN Ordering Facility: [facility] Address: [address] [place] [address] Performed By: #### 4 498-2 #### [facility] CLIA [id number] [address] [place] [address] [place] CBC W Auto Differential pane l (Bld)on 10-30-2024 Basophils (Bld) [#/Vol] 0.05 10*3/uL Normal <0.11 [facility] Comment on above: Order Comment: Speci men Type: BLOOD SPECIMEN Ordering Facility: [facility] Address: [address] [place] [address] Performed By: #### C OPPER #### [facility] CLIA [id number] [address] [place] [address] [place] Basophils/100 WBC (Bld) 0.8 % Normal [facility] Comment on above: Order Comment: Speci men Type: BLOOD SPECIMEN Ordering Facility: [facility] Address: [address] [place] [address] Performed By: #### C OPPER #### [facility] CLIA [id number] [address] [place] [address] [place] Differential cell count method Nom (Bld) Auto Normal [facility] Comment on above: Order Comment: Speci men Type: BLOOD SPECIMEN Ordering Facility: [facility] Address: [address] [place] [address] Performed By: #### C OPPER #### [facility] CLIA [id number] [address] [place] [address] [place] Eosinophils (Bld) [#/Vol] 0.46 10*3/uL High <0.46 [facility] Comment on above: Order Comment: Speci men Type: BLOOD SPECIMEN Ordering Facility: [facility] Address: [address] [place] [address] Performed By: #### C OPPER #### [facility] CLIA [id number] [address] [place] [address] [place] Eosinophils/100 WBC (Bld) 7.0 % Normal [facility] Comment on above: Order Comment: Speci men Type: BLOOD SPECIMEN Ordering Facility: [facility] Address: [address] [place] [address] Performed By: #### C OPPER #### [facility] CLIA [id number] [address] [place] [address] [place] Erythrocyte distribution width (RBC) [Ratio] 13.5 % Normal 11.5-15.0 [facility] Comment on above: Order Comment: Speci men Type: BLOOD SPECIMEN Ordering Facility: [facility] Address: [address] [place] [address] Performed By: #### C OPPER #### [facility] CLIA [id number] [address] [place] [address] [place] Hematocrit (Bld) [Volume fraction] 41.9 % Normal 39.0-51.0 [facility] Comment on above: Order Comment: Speci men Type: BLOOD SPECIMEN Ordering Facility: [facility] Address: [address] [place] [address] Performed By: #### C OPPER #### [facility] CLIA [id number] [address] [place] [address] [place] Hemoglobin (Bld) [Mass/Vol] 14.0 g/dL Normal 13.0-17.0 [facility] Comment on above: Order Comment: Speci men Type: BLOOD SPECIMEN Ordering Facility: [facility] Address: [address] [place] [address] Performed By: #### C OPPER #### [facility] CLIA [id number] [address] [place] [address] [place] Immature granulocytes (Bld) [#/Vol] 10*3/uL Normal <0.10 [facility] Comment on above: Order Comment: Speci men Type: BLOOD SPECIMEN Ordering Facility: [facility] Address: [address] [place] [address] Performed By: #### C OPPER #### [facility] CLIA [id number] [address] [place] [address] [place] Immature granulocytes/100 WBC (Bld) 0.3 % Normal [facility] Comment on above: Order Comment: Speci men Type: BLOOD SPECIMEN Ordering Facility: [facility] Address: [address] [place] [address] Performed By: #### C OPPER #### [facility] CLIA [id number] [address] [place] [address] [place] Lymphocytes (Bld) [#/Vol] 0.59 10*3/uL Low 1.00-4.00 [facility] Comment on above: Order Comment: Speci men Type: BLOOD SPECIMEN Ordering Facility: [facility] Address: [address] [place] [address] Performed By: #### C OPPER #### [facility] CLIA [id number] [address] [place] [address] [place] Lymphocytes/100 WBC (Bld) 9.0 % Normal [facility] Comment on above: Order Comment: Speci men Type: BLOOD SPECIMEN Ordering Facility: [facility] Address: [address] [place] [address] Performed By: #### C OPPER #### [facility] CLIA [id number] [address] [place] [address] [place] MCH (RBC) [Entitic mass] 34.6 pg High 26.0-34.0 [facility] Comment on above: Order Comment: Speci men Type: BLOOD SPECIMEN Ordering Facility: [facility] Address: [address] [place] [address] Performed By: #### C OPPER #### [facility] CLIA [id number] [address] [place] [address] [place] MCHC (RBC) [Mass/Vol] 33.4 g/dL Normal 30.5-36.0 [facility] Comment on above: Order Comment: Speci men Type: BLOOD SPECIMEN Ordering Facility: [facility] Address: [address] [place] [address] Performed By: #### C OPPER #### [facility] CLIA [id number] [address] [place] [address] [place] MCV (RBC) [Entitic vol] 103.5 fL High 80.0-100.0 [facility] Comment on above: Order Comment: Speci men Type: BLOOD SPECIMEN Ordering Facility: [facility] Address: [address] [place] [address] Performed By: #### C OPPER #### [facility] CLIA [id number] [address] [place] [address] [place] Monocytes (Bld) [#/Vol] 0.72 10*3/uL Normal <0.87 [facility] Comment on above: Order Comment: Speci men Type: BLOOD SPECIMEN Ordering Facility: [facility] Address: [address] [place] [address] Performed By: #### C OPPER #### [facility] CLIA [id number] [address] [place] [address] [place] Monocytes/100 WBC (Bld) 10.9 % Normal [facility] Comment on above: Order Comment: Speci men Type: BLOOD SPECIMEN Ordering Facility: [facility] Address: [address] [place] [address] Performed By: #### C OPPER #### [facility] CLIA [id number] [address] [place] [address] [place] Neutrophils (Bld) [#/Vol] 4.74 10*3/uL Normal 1.45-7.50 [facility] Comment on above: Order Comment: Speci men Type: BLOOD SPECIMEN Ordering Facility: [facility] Address: [address] [place] [address] Performed By: #### C OPPER #### [facility] CLIA [id number] [address] [place] [address] [place] Neutrophils/100 WBC (Bld) 72.0 % Normal [facility] Comment on above: Order Comment: Speci men Type: BLOOD SPECIMEN Ordering Facility: [facility] Address: [address] [place] [address] Performed By: #### C OPPER #### [facility] CLIA [id number] [address] [place] [address] [place] Nucleated RBC (Bld) [#/Vol] 10*3/uL Normal <0.01 [facility] Comment on above: Order Comment: Speci men Type: BLOOD SPECIMEN Ordering Facility: [facility] Address: [address] [place] [address] Performed By: #### C OPPER #### [facility] CLIA [id number] [address] [place] [address] [place] Nucleated RBC/100 WBC (Bld) [Ratio] 0.0 /100 WBC Normal [facility] Comment on above: Order Comment: Speci men Type: BLOOD SPECIMEN Ordering Facility: [facility] Address: [address] [place] [address] Performed By: #### C OPPER #### [facility] CLIA [id number] [address] [place] [address] [place] Platelet mean volume (Bld) [Entitic vol] 10.4 fL Normal 9.0-12.7 [facility] Comment on above: Order Comment: Speci men Type: BLOOD SPECIMEN Ordering Facility: [facility] Address: [address] [place] [address] Performed By: #### C OPPER #### UPPER [facility] CLIA [id number] [address] [place] [address] [place] Platelets (Bld) [#/Vol] 208 10*3/uL Normal 150-400 [facility] Comment on above: Order Comment: Speci men Type: BLOOD SPECIMEN Ordering Facility: [facility] Address: [address] [place] [address] Performed By: #### C OPPER #### [facility] CLIA [id number] [address] [place] [address] [place] RBC (Bld) [#/Vol] 4.05 10*6/uL Low 4.20-6.00 [facility] Comment on above: Order Comment: Speci men Type: BLOOD SPECIMEN Ordering Facility: [facility] Address: [address] [place] [address] Performed By: #### C OPPER #### [facility] CLIA [id number] [address] [place] [address] [place] WBC (Bld) [#/Vol] 6.58 10*3/uL Normal 3.70-11.00 [facility] Comment on above: Order Comment: Speci men Type: BLOOD SPECIMEN Ordering Facility: [facility] Address: [address] [place] [address] Performed By: #### C OPPER #### [facility] CLIA [id number] [address] [place] [address] [place] CRP SerPl-mCncon 10-30-2024 CRP [Mass/Vol] 0.6 mg/dL Normal <0.9 [facility] Comment on above: Order Comment: Speci men Type: BLOOD SPECIMEN Ordering Facility: [facility] Address: [address] [place] [address] Performed By: #### 4 498-2 #### [facility] CLIA [id number] [address] [place] [address] [place] Comprehensive metabolic 2000 panelon 10-30-2024 Albumin [Mass/Vol] 4.3 g/dL Normal 3.9-4.9 [facility] Comment on above: Order Comment: Speci men Type: BLOOD SPECIMEN Ordering Facility: [facility] Address: [address] [place] [address] Performed By: #### C OPPER #### [facility] CLIA [id number] [address] [place] [address] [place] ALP [Catalytic activity/Vol] 145 U/L High 38-113 [facility] Comment on above: Order Comment: Speci men Type: BLOOD SPECIMEN Ordering Facility: [facility] Address: [address] [place] [address] Performed By: #### C OPPER #### [facility] CLIA [id number] [address] [place] [address] [place] ALT [Catalytic activity/Vol] 38 U/L Normal 10-54 [facility] Comment on above: Order Comment: Speci men Type: BLOOD SPECIMEN Ordering Facility: [facility] Address: [address] [place] [address] Performed By: #### C OPPER #### [facility] CLIA [id number] [address] [place] [address] [place] Anion gap [Moles/Vol] 13 mmol/L Normal 8-15 [facility] Comment on above: Order Comment: Speci men Type: BLOOD SPECIMEN Ordering Facility: [facility] Address: [address] [place] [address] Performed By: #### C OPPER #### [facility] CLIA [id number] [address] [place] [address] [place] AST [Catalytic activity/Vol] 51 U/L High 14-40 [facility] Comment on above: Order Comment: Speci men Type: BLOOD SPECIMEN Ordering Facility: [facility] Address: [address] [place] [address] Performed By: #### C OPPER #### [facility] CLIA [id number] [address] [place], [place] [address] [place] Bilirubin [Mass/Vol] 0.8 mg/dL Normal 0.2-1.3 [facility] Comment on above: Order Comment: Speci men Type: BLOOD SPECIMEN Ordering Facility: [facility] Address: [address] [place] [address] Performed By: #### C OPPER #### [facility] CLIA [id number] [address] [place], [place] [address] [place] Calcium [Mass/Vol] 9.9 mg/dL Normal 8.5-10.2 [facility] Comment on above: Order Comment: Speci men Type: BLOOD SPECIMEN Ordering Facility: [facility] Address: [address] [place] [address] Performed By: #### C OPPER #### [facility] CLIA [id number] [address] [place], [place] [id number] [place] Chloride [Moles/Vol] 104 mmol/L Normal 98-107 [facility] Comment on above: Order Comment: Speci men Type: BLOOD SPECIMEN Ordering Facility: [facility] Address: [address] [place] [address] Performed By: #### C OPPER #### [facility] CLIA [id number] [address] [place] [address] [place] CO2 [Moles/Vol] 22 mmol/L Normal 22-30 [facility] Comment on above: Order Comment: Speci men Type: BLOOD SPECIMEN Ordering Facility: [facility] Address: [address] [place] [address] Performed By: #### C OPPER #### [facility] CLIA [id number] [address] [place] [address] [place] Creatinine [Mass/Vol] 0.67 mg/dL Low 0.73-1.22 [facility] Comment on above: Order Comment: Speci men Type: BLOOD SPECIMEN Ordering Facility: [facility] Address: [address] [place] [address] Performed By: #### C OPPER #### [facility] CLIA [id number] [address] [place] [address] [place] Creatinine and Glomerular filtration rate.predicted panel (S/P/Bld) 98 mL/min/1.73m??? Normal >=60 [facility] Comment on above: Order Comment: Speci men Type: BLOOD SPECIMEN Ordering Facility: [facility] Address: [address] [place] [address] Result Comment: Micaela mated Glomerular Filtration Rate [...] GFR. Performed By: #### C OPPER #### [facility] CLIA [id number] [address] [place], [place] [id number] [place] Glucose [Mass/Vol] 148 mg/dL High 74-99 [facility] Comment on above: Order Comment: Speci men Type: BLOOD SPECIMEN Ordering Facility: [facility] Address: [address] [place] [address] Result Comment: The [place] Diabetes Association (ADA) provides guidance for cutoff [...] Standards of Medical Care in Diabetes 2016, [place] [employer]. Diabetes Care. 2016.39(Suppl 1). Performed By: #### C OPPER #### [facility] CLIA [id number] [address] [place] [address] [place] Potassium [Moles/Vol] 4.7 mmol/L Normal 3.7-5.1 [facility] Comment on above: Order Comment: Speci men Type: BLOOD SPECIMEN Ordering Facility: [facility] Address: [address] [place] [address] Performed By: #### C OPPER #### [facility] CLIA [id number] [address] [place], [place] [id number] [place] Protein [Mass/Vol] 7.5 g/dL Normal 6.3-8.0 [facility] Comment on above: Order Comment: Speci men Type: BLOOD SPECIMEN Ordering Facility: [facility] Address: [address] [place], [place] [address] Performed By: #### C OPPER #### [facility] CLIA [id number] [address] [place], [place] [id number] [place] Sodium [Moles/Vol] 139 mmol/L Normal 136-144 [facility] Comment on above: Order Comment: Speci men Type: BLOOD SPECIMEN Ordering Facility: [facility] Address: [address] [place] [address] Performed By: #### C OPPER #### [facility] CLIA [id number] [address] [place] [address] [place] Urea nitrogen [Mass/Vol] 12 mg/dL Normal 9-24 [facility] Comment on above: Order Comment: Speci men Type: BLOOD SPECIMEN Ordering Facility: [facility] Address: [address] [place] [address] Performed By: #### C OPPER #### [facility] CLIA [id number] [address] [place] [address] [place] DNA ANTIBODY DS BLDon 2024 DNA ANTIBODY 357 IU/mL High <=200 [facility] Comment on above: Order Comment: Speci men Type: BLOOD SPECIMEN Ordering Facility: [facility] Address: [address] [place] [address] Result Comment: Nega tive: <200 IU/mL Equivocal: 201-300 IU/mL Moderate Positive: 301-800 IU/mL Strong Positive: >801 IU/mL Performed By: #### 4 498-2 #### [facility] CLIA [id number] [address] [place] [address] [place] DNA ANTIBODY QUALITATIVE INTERPRETATION Positive Abnormal Negative [facility] Comment on above: Order Comment: Speci men Type: BLOOD SPECIMEN Ordering Facility: [facility] Address: [address] [place] [address] Performed By: #### 4 498-2 #### [facility] CLIA [id number] [address] [place] [address] [place] ESR Westergren method (Bld) [Velocity]on 10-30-2024 ESR (Bld) [Velocity] 22 mm/h High 0-15 [facility] Comment on above: Order Comment: Speci men Type: BLOOD SPECIMEN Ordering Facility: [facility] Address: [address] [place] [address] Performed By: #### C OPPER #### [facility] CLIA [id number] [address] [place] [address] [place] Free PSA [Mass/Vol]on 2024 Free PSA/Total PSA [Mass fraction] 19 % Normal [facility] Comment on above: Order Comment: Speci men Type: BLOOD SPECIMEN Ordering Facility: [facility] Address: [address] [place] [address] Result Comment: Tota l and free PSA test methodology used is the Electrochemiluminescence Immunoassay by [employer]. Total or free PSA values by differing [...] >25 9.1% 12.2% 15.8% Performed By: #### C OPPER #### [facility] CLIA [id number] [address] [place] [address] [place] Prostate specific Ag [Mass/Vol] 4.22 ng/mL High <2.60 [facility] Comment on above: Order Comment: Speci men Type: BLOOD SPECIMEN Ordering Facility: [facility] Address: [address] [place] [address] Result Comment: Tota l PSA test methodology [...] Patria Hartley M.D., Raquel Ahmadi, M.P.H., Lisseth Rush Sc.D. Effect of Verification Bias on Screening for Prostate Cancer by Measurement of Prostatic Specific Antigen. N Engl J Med 2003,349:335-42. Performed By: #### C OPPER #### [facility] CLIA [id number] [address] [place] [address] [place] LIPID PANEL, NONFASTINGon Cholesterol [Mass/Vol] 182 mg/dL Normal <200 [facility] Comment on above: Order Comment: Speci men Type: BLOOD SPECIMEN Ordering Facility: [facility] Address: [address] [place] [address] Result Comment: <200 mg/dL, Desirable 200-239 mg/dL, Borderline high >239 mg/dL, High Performed By: #### C OPPER #### [facility] CLIA [id number] [address] [place] [address] [place] HDL CHOLESTEROL, NF 46 mg/dL Normal >39 [facility] Comment on above: Order Comment: Speci men Type: BLOOD SPECIMEN Ordering Facility: [facility] Address: [address] [place] [address] Result Comment: 40-5 9 mg/dL, Acceptable >59 mg/dL, High: Negative risk factor for coronary heart disease <40 mg/dL, Low: Positive risk factor for coronary heart disease Performed By: #### C OPPER #### [facility] CLIA [id number] [address] [place] [address] [place] LDL CHOLESTEROL, NF 113 mg/dL High <100 [facility] Comment on above: Order Comment: Medina peck Type: BLOOD SPECIMEN Ordering Facility: [facility] Address: [address] [place] [address] Result Comment: <100 mg/dL, Optimal 100-129 mg/dL, Near optimal/above optimal 130-159 mg/dL, Borderline high 160-189 mg/dL, High >189 mg/dL, Very high Secondary prevention optimal LDL Cholesterol levels are recommended to be < 70 mg/dL Performed By: #### C OPPER #### [facility] CLIA [id number] [address] [place] [address] OF [facility] LDL/HDL RATIO, NF 2.46 mg/dL Normal <2.54 [facility] Comment on above: Order Comment: Medina peck Type: BLOOD SPECIMEN Ordering Facility: [facility] Address: [address] [place] [address] Result Comment: Refe rence: 1. National Cholesterol Education Program ATP III Guideline At-A-Glance Quick Desk Reference: National Heart, Lung, and Blood [place]. National Institutes of Health. 2001: NIH Publication No. 01-3305. 2. An International Atherosclerosis Society position paper: global recommendations for the management of dyslipidemia: executive summary, Atherosclerosis. 2014: 232(2):410-413. Performed By: #### C OPPER #### [facility] CLIA [id number] [address] [place] [address] [place] NON HDL CHOL, NF 136 mg/dL High <130 [facility] Comment on above: Order Comment: Medina peck Type: BLOOD SPECIMEN Ordering Facility: [facility] Address: [address] [place] [address] Result Comment: <130 mg/dL, Optimal 130-159 mg/dL, Near optimal/above optimal 160-189 mg/dL, Borderline high 190-219 mg/dL, High >219 mg/dL, Very high Secondary prevention optimal non HDL Cholesterol levels are recommended to be <100 mg/dL Performed By: #### C OPPER #### [facility] CLIA [id number] [address] [place] [address] [place] T CHOL/HDL RATIO NF 3.96 mg/dL Normal <5.10 [facility] Comment on above: Order Comment: Speci men Type: BLOOD SPECIMEN Ordering Facility: [facility] Address: [address] [place] [address] Performed By: #### C OPPER #### [facility] CLIA [id number] [address] [place] [address] [place] TRIGLYCERIDES, NF 113 mg/dL Normal <150 [facility] Comment on above: Order Comment: Speci men Type: BLOOD SPECIMEN Ordering Facility: [facility] Address: [address] [place] [address] Result Comment: <150 mg/dL, Normal 150-199 mg/dL, Borderline high 200-499 mg/dL, High >499 mg/dL, Very high Performed By: #### C OPPER #### [facility] CLIA [id number] [address] [place] [address] [place] VLDL CHOLESTEROL, NF 23 mg/dL Normal <30 [facility] Comment on above: Order Comment: Speci men Type: BLOOD SPECIMEN Ordering Facility: [facility] Address: [address] [place] [address] Performed By: #### C OPPER #### [facility] CLIA [id number] [address] [place] [address] [place] Urate SerPl-mCncon 5 Urate [Mass/Vol] 5.8 mg/dL Normal 4.0-8.1 [facility] Comment on above: Order Comment: Speci men Type: BLOOD SPECIMEN Ordering Facility: [facility] Address: [address] [place] [address] Performed By: #### C OPPER #### [facility] CLIA [id number] [address] [place] [address] [place] Urinalysis complete panel (U )on 10-30-2024 Bacteria LM.HPF (Urine sed) [#/Area] Negative Normal Negative [facility] Comment on above: Order Comment: Speci men Type: BLOOD SPECIMEN Ordering Facility: [facility] Address: [address] [place] [address] Performed By: #### 1 989-3 #### [facility] CLIA [id number] [address] [place] [address] [place] Bilirubin Ql (U) Negative Normal Negative [facility] Comment on above: Order Comment: Speci men Type: BLOOD SPECIMEN Ordering Facility: [facility] Address: [address] [place] [address] Performed By: #### 1 989-3 #### [facility] CLIA [id number] [address] [place] [address] [place] CALCIUM OXALATE CRYSTALS (UA) Few Abnormal None Seen [facility] Comment on above: Order Comment: Speci men Type: BLOOD SPECIMEN Ordering Facility: [facility] Address: [address] [place] [address] Performed By: #### 1 989-3 #### [facility] CLIA [id number] [address] [place] [address] [place] Clarity (Unsp spec) Cloudy Abnormal Clear [facility] Comment on above: Order Comment: Speci men Type: BLOOD SPECIMEN Ordering Facility: [facility] Address: [address] [place] [address] Performed By: #### 1 989-3 #### [facility] CLIA [id number] [address] [place] [address] [place] Color (U) Dark Yellow Abnormal Yellow [facility] Comment on above: Order Comment: Speci men Type: BLOOD SPECIMEN Ordering Facility: [facility] Address: [address] [place] [address] Performed By: #### 1 989-3 #### [facility] CLIA [id number] [address] [place] [address] [place] Epithelial cells LM.HPF (Urine sed) [#/Area] None Seen Normal [facility] Comment on above: Order Comment: Speci men Type: BLOOD SPECIMEN Ordering Facility: [facility] Address: [address] [place] [address] Performed By: #### 1 989-3 #### [facility] CLIA [id number] [address] [place] [address] [place] Glucose Test strip (U) [Mass/Vol] Negative Normal Negative [facility] Comment on above: Order Comment: Speci men Type: BLOOD SPECIMEN Ordering Facility: [facility] Address: [address] [place] [address] Performed By: #### 1 989-3 #### [facility] CLIA [id number] [address] [place] [address] [place] Hemoglobin Ql (U) Negative Normal Negative [facility] Comment on above: Order Comment: Speci men Type: BLOOD SPECIMEN Ordering Facility: [facility] Address: [address] [place] [address] Performed By: #### 1 989-3 #### [facility] CLIA [id number] [address] [place] [address] [place] Hyaline casts (Urine sed) [#/Area] 4-10 /LPF Abnormal 0 /LPF [facility] Comment on above: Order Comment: Speci men Type: BLOOD SPECIMEN Ordering Facility: [facility] Address: [address] [place] [address] Performed By: #### 1 989-3 #### [facility] CLIA [id number] [address] [place] [address] [place] Ketones Ql (U) Trace Abnormal Negative [facility] Comment on above: Order Comment: Speci men Type: BLOOD SPECIMEN Ordering Facility: [facility] Address: [address] [place] [address] Performed By: #### 1 989-3 #### [facility] CLIA [id number] [address] [place] [address] [place] Leukocyte esterase Test strip Ql (U) 1+ Abnormal Negative [facility] Comment on above: Order Comment: Speci men Type: BLOOD SPECIMEN Ordering Facility: [facility] Address: [address] [place] [address] Performed By: #### 1 989-3 #### [facility] CLIA [id number] [address] [place] [address] [place] Nitrite Ql (U) Negative Normal Negative [facility] Comment on above: Order Comment: Speci men Type: BLOOD SPECIMEN Ordering Facility: [facility] Address: [address] [place] [address] Performed By: #### 1 989-3 #### [facility] CLIA [id number] [address] [place] [address] [place] pH (U) 5.5 [pH] Normal <8.5 [facility] Comment on above: Order Comment: Speci men Type: BLOOD SPECIMEN Ordering Facility: [facility] Address: [address] [place] [address] Performed By: #### 1 989-3 #### [facility] CLIA [id number] [address] [place] [address] [place] Protein (U) [Mass/Vol] 1+ Abnormal Negative [facility] Comment on above: Order Comment: Speci men Type: BLOOD SPECIMEN Ordering Facility: [facility] Address: [address] [place] [address] Performed By: #### 1 989-3 #### [facility] CLIA [id number] [address] [place] [address] [place] RBC LM.HPF (Urine sed) [#/Area] 6-10 /HPF Abnormal 0-2 /HPF [facility] Comment on above: Order Comment: Speci men Type: BLOOD SPECIMEN Ordering Facility: [facility] Address: [address] [place] [address] Performed By: #### 1 989-3 #### [facility] CLIA [id number] [address] [place] [address] [place] Specific gravity (U) [Rel density] 1.019 Normal 1.005-1.030 [facility] Comment on above: Order Comment: Speci men Type: BLOOD SPECIMEN Ordering Facility: [facility] Address: [address] [place] [address] Performed By: #### 1 989-3 #### [facility] CLIA [id number] [address] [place] [address] [place] Urobilinogen Ql (U) 1.0 EU/dL Normal 0.2-1.0 EU/dL [facility] Comment on above: Order Comment: Speci men Type: BLOOD SPECIMEN Ordering Facility: [facility] Address: [address] [place] [address] Performed By: #### 1 989-3 #### [facility] CLIA [id number] [address] [place] [address] [place] WBC LM.HPF (Urine sed) [#/Area] 6-10 /HPF Abnormal 0-5 /HPF [facility] Comment on above: Order Comment: Speci men Type: BLOOD SPECIMEN Ordering Facility: [facility] Address: [address] [place] [address] Performed By: #### 1 989-3 #### [facility] CLIA [id number] [address] [place] [address] [place] Vit B12 SerPl-mCncon 025 Cobalamin (Vitamin B12) [Mass/Vol] 950 pg/mL Normal 232-1245 [facility] Comment on above: Order Comment: Speci men Type: BLOOD SPECIMEN Ordering Facility: [facility] Address: [address] [place] [address] Performed By: #### 4 498-2 #### [facility] CLIA [id number] [address] [place] [address] [place] [address] [place] CNOVSPon 10-23-2024 CNOVSP Visit (SP) Office (H EMAWS) -- NAZARIO HUTTON ([id number]) 1950 M Date Time Provider Department 10/23/24 11:10 AM STEPHANIE ROY HEMAWS During your visit today, [...] rich plaque 12/06/[address] 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 Normal [facility] XR BONE SURVEY ROUTINEon XR BONE SURVEY [...] osteolytic, osteosclerotic, or destructive bone lesions identified [facility] Transcribe Date/Time: Oct 29 2024 4:35P Dictated by : KAL PA MD This examination was interpreted and the report reviewed and electronically signed by: KAL PA MD on Oct 29 2024 4:41PM EST [id number] Normal [facility] Calcium.ionized [Moles/Vol]o n 10-21-2024 Calcium.ionized (Bld) [Mass/Vol] 1.25 mmol/L Normal 1.08-1.30 [facility] Comment on above: Order Comment: Speci men Type: BLOOD SPECIMENOrdering Facility: [facility] Address: [address] [place] [address] Performed By: #### 1 995-0 ####[facility] LABIA [id number] [place] [address] [place] Calcium.ionized adjusted to pH 7.4 (Bld) [Moles/Vol] 1.24 mmol/L Normal 1.08-1.30 [facility] Comment on above: Order Comment: Speci men Type: BLOOD SPECIMENOrdering Facility: [facility] Address: [address] [place] [address] Performed By: #### 1 995-0 ####[facility] LABIA [id number] [place] [address] [place] Calculi, Urinary w / Photoon 10-21-2024 . Comment Normal . [facility] Comment on above: Result Comment: Perc entage (Represents the % composition) Performed By: #### L 3650.0100 ####[facility] [address] [place], [address] 2,8 Dihydroxyad TNP Normal . [facility] Comment on above: Performed By: #### L 3650.0100 ####[facility] [address] [place], [address] AMM ACID URATE TNP Normal . [facility] Comment on above: Performed By: #### L 3650.0100 ####[facility] [address] [place], [address] Bilirubin Ql (U) TNP Normal . [facility] Comment on above: Performed By: #### L 3650.0100 ####[facility] [address] [place], [address] [place] BILIRUBINATE TNP Normal . [facility] Comment on above: Performed By: #### L 3650.0100 ####[facility] [address] [place], [address] CA CARBONATE TNP Normal . [facility] Comment on above: Performed By: #### L 3650.0100 ####[facility] [address] [place], [address] CA HYDROG PHOS TNP Normal . [facility] Comment on above: Performed By: #### L 3650.0100 ####[facility] [address] [place], [address] CA OXAL DIHYDR TNP Normal . [facility] Comment on above: Performed By: #### L 3650.0100 ####[facility] [address] [place], [address] [place] OXAL MONOHYD [address] [facility] Comment on above: Performed By: #### L 3649.0100 ####[facility] [address] [place], [address] CA Palmitate TNP Normal . [facility] Comment on above: Performed By: #### L 3649.0 ####[facility] [address] [place], [address] CA PHOS (hydro) TNP Normal . [facility] Comment on above: Performed By: #### L 3649.0 ####[facility] [address] [place], [address] CA PHOSPHATE TNP Normal . [facility] Comment on above: Performed By: #### L 3649.0 ####[facility] [address] [place], [address] CA Stearate TNP Normal . [facility] Comment on above: Performed By: #### L 3649.0 ####[facility] [address] [place], [address] CELL MATERIAL TNP Normal . [facility] Comment on above: Performed By: #### L 3649.0 ####[facility] [address] [place], [address] CHOLESTEROL TNP Normal . [facility] Comment on above: Performed By: #### L 3649.0 ####[facility] [address] [place], [address] Color (U) Brown Normal . [facility] Comment on above: Performed By: #### L 3649.0 ####[facility] [address] [place], [address] COMMENT TNP Normal . [facility] Comment on above: Performed By: #### L 3649.0 ####[facility] [address] [place], [address] COMMENT Comment Normal . [facility] Comment on above: Result Comment: Calc ulus received wet. Wet calculi must be dried beforeanalysis, which delays reporting of results. Leaving calculiwet (such as water, saline, blood, urine) may lead tochanges in composition. Performed By: #### L 3650.0100 ####[facility] [address] [place], [address] Result Comment: Cheryl carter questions regarding Calculi Analysis [facility] at: [phone]. Result Comment: Calc tiffany report will follow via computer, mail or courierdelivery. CYSTINE TNP Normal . [facility] Comment on above: Performed By: #### L 3649.0 ####[facility] [address] [place], [address] Disclaimer Comment Normal . [facility] Comment on above: Result Comment: This test was developed and its performance characteristicsdetermined by [employer]. It has not been cleared or approvedby the Food and Drug Administration.Performed at: [address] [id number] Director: Jose Harris PhD, Phone: [phone] Performed By: #### L 3649.0 ####[facility] [address] [place], [address] DRIED BLOOD TNP Normal . [facility] Comment on above: Performed By: #### L 3649.0100 ####[facility] [address] [place], [address] Drug/Metabolite TNP Normal . [facility] Comment on above: Performed By: #### L 0.0 ####[facility] [address] [place], [address] MAG EMMETT PHOS TNP Normal . [facility] Comment on above: Performed By: #### L 3650.0100 ####[facility] [address] [place], [address] NA ACID URATE TNP Normal . [facility] Comment on above: Performed By: #### L 3649.0 ####[facility] [address] [place], [address] NEWBERYITE TNP Normal . [facility] Comment on above: Performed By: #### L 3649.0 ####[facility] [address] [place], [address] Other Component TNP Normal . [facility] Comment on above: Performed By: #### L 3649.0 ####[facility] [address] [place], [address] PHOTO Comment Normal . [facility] Comment on above: Result Comment: Raven darius will follow under a separate cover Performed By: #### L 3649.0 ####[facility] [address] [place], [address] SIZE 7x[address] [facility] Comment on above: Result Comment: Mult iple pieces received. Dimensions of the largest piecereported. Performed By: #### L 3649.0 ####[facility] [address] [place], [address] SOURCE Comment Normal . [facility] Comment on above: Result Comment: Not provided Performed By: #### L 3649.0 ####[facility] [address] [place], [address] TRIAMTERENE TNP Normal . [facility] Comment on above: Performed By: #### L 3649.0 ####[facility] [address] [place], [address] URIC ACID [address] [facility] Comment on above: Performed By: #### L 3649.0 ####[facility] [address] [place], [address] URIC ACID DIHYD TNP Normal . [facility] Comment on above: Performed By: #### L 3650.0100 ####[facility] [address] [place], [address] WEIGHT [address] [facility] Comment on above: Performed By: #### L 3650.0100 ####[facility] [address] [place], [address] XANTHINE TNP Normal . [facility] Comment on above: Performed By: #### L 3650.0100 ####[facility] [address] [place], [address] MONOCLONAL PROT 24 UR W/INTE RPon 10-21-2024 STAFF REVIEW (PA) Reviewed by Haydee Phelps MD Normal [facility] Comment on above: Order Comment: Speci men Type: URINE SPECIMEN Ordering Facility: [facility] Address: [address] [place] [address] Performed By: #### U 24MPA #### [facility] CLIA [id number] [address] [place] [address] [place] UMPA RESULT No M protein is identified. Normal No M protein is identified. [facility] Comment on above: Order Comment: Speci men Type: URINE SPECIMEN Ordering Facility: [facility] Address: [address] [place] [address] Performed By: #### U 24MPA #### [facility] CLIA [id number] [address] [place] [address] [place] PROT ELEC UR 24HR W/M SPIKE (P)on 10-21-2024 Albumin/Globulin Elph (24H U) [Mass ratio] 44.50 % Normal [facility] Comment on above: Order Comment: Speci men Type: BLOOD SPECIMEN Ordering Facility: [facility] Address: [address] [place] [address] Performed By: #### 4 498-2 #### [facility] CLIA [id number] [address] [place] [address] [place] Alpha 1 globulin Elph (24H U) [Mass fraction] 5.50 % Normal [facility] Comment on above: Order Comment: Speci men Type: BLOOD SPECIMEN Ordering Facility: [facility] Address: [address] [place] [address] Performed By: #### 4 498-2 #### [facility] CLIA [id number] [address] [place] [address] [place] Alpha 2 globulin Elph (24H U) [Mass fraction] 17.65 % Normal [facility] Comment on above: Order Comment: Speci men Type: BLOOD SPECIMEN Ordering Facility: [facility] Address: [address] [place] [address] Performed By: #### 4 498-2 #### [facility] CLIA [id number] [address] [place] [address] [place] Beta globulin Elph (24H U) [Mass fraction] 19.74 % Normal [facility] Comment on above: Order Comment: Speci men Type: BLOOD SPECIMEN Ordering Facility: [facility] Address: [address] [place] [address] Performed By: #### 4 498-2 #### [facility] CLIA [id number] [address] [place] [address] [place] Gamma globulin Elph (24H U) [Mass fraction] 12.62 % Normal [facility] Comment on above: Order Comment: Speci men Type: BLOOD SPECIMEN Ordering Facility: [facility] Address: [address] [place] [address] Performed By: #### 4 498-2 #### [facility] CLIA [id number] [address] [place] [address] [place] Protein Fractions Elph Kamaljit (24H U) [Interp] No definitive M protein is identified on protein electrophoresis. Normal No definitive M protein is identified on protein electrophore sis. [facility] Comment on above: Order Comment: Speci men Type: BLOOD SPECIMEN Ordering Facility: [facility] Address: [address] [place] [address] Performed By: #### 4 498-2 #### [facility] CLIA [id number] [address] [place] [address] [place] OF [facility] Protein.monoclonal Elph (24H U) [Mass/Time] 0.00 g/24hr Normal [facility] Comment on above: Order Comment: Speci men Type: BLOOD SPECIMEN Ordering Facility: [facility] Address: [address] [place] [address] Performed By: #### 4 498-2 #### [facility] CLIA [id number] [address] [place] [address] OF [place]ISH STAFF REVIEW ([id number]) Reviewed by Haydee Phelps MD [facility] Comment on above: Order Comment: Speci men Type: BLOOD SPECIMEN Ordering Facility: [facility] Address: [address] [place] [address] Performed By: #### 4 498-2 #### [facility] IA [id number] [address] [place] [address] [place] Prot 24h Ur-mRateon 10-22-19 25 Protein (24H U) [Mass/Time] 0.11 g/24 Hr Normal <0.15 [facility] Comment on above: Order Comment: Speci men Type: URINE SPECIMENOrdering Facility: [facility] Address: [address] [place] [address] Result Comment: Adul t Proteinuria Categories: <0.15 g/24 hours is considered normal to mildly increased 0.15 - 0.50 g/24 hours is considered moderately increased >0.50 g/24 hours is considered severely increased KDIGO. (2013). KDIGO 2012 Clinical Practice Guideline for the Evaluation and Management of Chronic Kidney Disease. Official Journal of the International Society of Nephrology, 3(1), 1-150. Performed By: #### 2 889-4 ####[facility] LABCLIA [id number] [address] [id number] [place] [address] [place] Protein (24H U) [Mass/Time]o n 10-21-2024 PERIOD (HRS) 24 hr Normal [facility] Comment on above: Order Comment: Speci men Type: URINE SPECIMENOrdering Facility: [facility] Address: [address] [place] [address] Performed By: #### 2 889-4 ####[facility] LABCLIA [id number] [id number] [place] [address] [place] Specimen volume (24H U) 2.65 L Normal [facility] Comment on above: Order Comment: Speci men Type: URINE SPECIMENOrdering Facility: [facility] Address: [address] [place] [address] Performed By: #### 2 889-4 ####[facility] LABIA [id number] [id number] [place] [address] [place] Surgical pathology reportOrd ered By: Payton Norton on 10-15-[address] [facility] Ammonium urate crystals Infr ared spectroscopy Ql (Stone)Ordered By: Geovani Barron on 10-11-2024 Stone Ammonium Acid Urate TNP [facility] Comment on above: Test not performed Ammonium urate crystals dete ction in stone by infrared spectroscopyOrdered By: Geovani Barron on 10-11-2024 Ammonium urate crystals Infrared spectroscopy Ql (Stone) [facility] Comment on above: Test not performed Blood.dried (Stone) [Mass fr action]Ordered By: Geovani Barron on 10-11-2024 Stone Dried Blood [facility] Comment on above: Test not performed Calcium hydrogen phosphate c rystals Infrared spectroscopy Ql (Stone)Ordered By: Geovani Barron on 10-11-2024 Stone Calcium Hydrogen Phosphate [facility] Comment on above: Test not performed Calcium hydrogen phosphate c rystals detection in stone by infrared spectroscopyOrdered By: Geovani Barron on 10-11-2024 Calcium hydrogen phosphate crystals Infrared spectroscopy Ql (Stone) [facility] Comment on above: Test not performed Calcium oxalate dihydrate cr ystals Infrared spectroscopy Ql (Stone)Ordered By: Geovani Barron on 10-11-2024 Stone Calcium Oxalate Dihydrate [facility] Comment on above: Test not performed Calcium oxalate dihydrate cr ystals detection in stone by infrared spectroscopyOrdered By: Geovani Barron on 10-11-2024 Calcium oxalate dihydrate crystals Infrared spectroscopy Ql (Stone) [facility] Comment on above: Test not performed Cellular material Est (Stone ) [Mass/Mass]Ordered By: Geovani Barron on 10-11-2024 Stone Cellular Material [facility] Comment on above: Test not performed Cholesterol measurementOrder ed By: Geovani Barron on 10-11-2024 Stone Cholesterol [facility] Comment on above: Test not performed Color (Unsp spec)Ordered By: Geovani Barron on 10-11-2024 Stone Color Brown . [facility] Color of specimen determinat ionOrdered By: Geovani Barron on 10-11-2024 Color (Unsp spec) Brown . [facility] Cystine (Unsp spec) [Moles/V ol]Ordered By: Geovani Barron on 10-11-2024 Stone Cystine [facility] Comment on above: Test not performed Cystine measurementOrdered B y: Geovani Barron on 10-11-2024 Cystine (Unsp spec) [Moles/Vol] [facility] Comment on above: Test not performed Determination of volume of c alculusOrdered By: Geovani Barron on 10-11-2024 Size (Stone) [Entitic vol] 7x[address] [facility] Comment on above: Multiple pieces rece ived. Dimensions of the largest piecereported. Estimation of cellular mater ial in calculus (mass/mass)Ordered By: Geovani Barron on 10-11-2024 Cellular material Est (Stone) [Mass/Mass] [facility] Comment on above: Test not performed External camera medical phot ographyOrdered By: Geovani Barron on 10-11-2024 Urinary Stone Photo Note Comment . [facility] Comment on above: Photograph will foll ow under a separate cover Laboratory - Miscellaneous t estsOrdered By: Geovani Barron on 10-11-2024 Service comment (Unsp spec) [Interp] [facility] Comment on above: Test not performed Service comment (Unsp spec) [Interp] Comment . [facility] Comment on above: Calculus received we t. Wet calculi must be dried beforeanalysis, which delays reporting of results. Leaving calculiwet (such as water, saline, blood, urine) may lead tochanges in composition. Physician questions regarding Calculi Analysis [facility] at: [phone]. Calculi report will follow via computer, mail or courierdelivery. Measurement of proportion of calculus composed of dried blood (mass/mass)Ordered By: Geovani Barron on 10-11-2024 Blood.dried (Stone) [Mass fraction] [facility] Comment on above: Test not performed Measurement of weight of sto neOrdered By: Geovani Barron on 10-11-2024 Weight (Stone) [address] [facility] Newberyite crystals Infrared spectroscopy Ql (Stone)Ordered By: Geovani Barron on 10-11-2024 Stone Newberyite [facility] Comment on above: Test not performed Newberyite crystals detectio n in stone by infrared spectroscopyOrdered By: Geovani Barron on 10-11-2024 Newberyite crystals Infrared spectroscopy Ql (Stone) [facility] Comment on above: Test not performed No Panel InformationOrdered By: Geovani Barron on 10-11-2024 Stone 2,8 Dihydroxyadenine [facility] Comment on above: Test not performed Stone Analysis (T) Comment . [facility] Comment on above: Percentage (Represen ts the % composition) Stone Bilirubin [facility] Comment on above: Test not performed Stone Calcium Bilirubinate [facility] Comment on above: Test not performed Stone Calcium Carbonate [facility] Comment on above: Test not performed Stone Calcium Hydroxyl-Phosphate [facility] Comment on above: Test not performed Stone Calcium Oxalate Monohydrate 40 % . [facility] Stone Calcium Palmitate [facility] Comment on above: Test not performed Stone Calcium Phosphate Carbonate [facility] Comment on above: Test not performed Stone Calcium Stearate [facility] Comment on above: Test not performed Stone Drug or Metabolite [facility] Comment on above: Test not performed Stone Other Component(s) [facility] Comment on above: Test not performed Stone Xanthine [facility] Comment on above: Test not performed Origin Nom (Stone)Ordered By : eGovani Barron on 10-11-2024 Stone Source Comment . [facility] Comment on above: Not provided Origin of StoneOrdered By: Irma Barron on 10-11-2024 Origin Nom (Stone) Comment . [facility] Comment on above: Not provided Service comment (Unsp spec) [Interp]Ordered By: Geovani Barron on 10-11-2024 Stone Comment [facility] Comment on above: Test not performed Stone Comment [address] [facility] Comment on above: Calculus received we t. Wet calculi must be dried beforeanalysis, which delays reporting of results. Leaving calculiwet (such as water, saline, blood, urine) may lead tochanges in composition. Stone Comment [address] [facility] Comment on above: Physician questions regarding Calculi Analysis contactLabcorp at: [phone]. Stone Comment [address] [facility] Comment on above: Calculi report will follow via computer, mail or courierdelivery. Size (Stone) [Entitic vol]Or dered By: Geovani Barron on 10-11-2024 Stone Size 7x[address] [facility] Comment on above: Multiple pieces rece ived. Dimensions of the largest piecereported. Sodium urate crystals Infrar ed spectroscopy Ql (Stone)Ordered By: Geovani Barron on 10-11-2024 Stone Sodium Acid Urate [facility] Comment on above: Test not performed Sodium urate crystals detect ion in stone by infrared spectroscopyOrdered By: Geovani Barron on 10-11-2024 Sodium urate crystals Infrared spectroscopy Ql (Stone) [facility] Comment on above: Test not performed Surgery Specimen Level Ion 0 10-11-2024 Surgery Specimen Level I Normal [facility] Comment on above: Performed By: #### P VIOLA ####[facility] [address] [place], [address] Triamterene crystals Infrare d spectroscopy Ql (Stone)Ordered By: Geovani Barron on 10-11-2024 Stone Triamterene [facility] Comment on above: Test not performed Triamterene crystals detecti on in stone by infrared spectroscopyOrdered By: Geovani Barron on 10-11-2024 Triamterene crystals Infrared spectroscopy Ql (Stone) [facility] Comment on above: Test not performed Triple phosphate crystals In frared spectroscopy Ql (Stone)Ordered By: Geovani Barron on 10-11-2024 Stone Magnesium Ammonium Phosphate [facility] Comment on above: Test not performed Triple phosphate crystals de tection in stone by infrared spectroscopyOrdered By: Geovani Barron on 10-11-2024 Triple phosphate crystals Infrared spectroscopy Ql (Stone) [facility] Comment on above: Test not performed Urate crystals Infrared spec troscopy Ql (Stone)Ordered By: Geovani Barron on 10-11-2024 Stone Uric Acid 60 % . [facility] Urate dihydrate crystals Inf rared spectroscopy Ql (Stone)Ordered By: Geovani Barron on 10-11-2024 Stone Uric Acid Dihydrate [facility] Comment on above: Test not performed Uric acid crystals detection in stone by infrared spectroscopyOrdered By: Geovani Barron on 10-11-2024 Urate crystals Infrared spectroscopy Ql (Stone) 60 % . [facility] Uric acid dihydrate crystals detection in stone by infrared spectroscopyOrdered By: Geovani Barron on 10-11-2024 Urate dihydrate crystals Infrared spectroscopy Ql (Stone) TNP [facility] Comment on above: Test not performed Weight (Stone)Ordered By: Angella Barron on 10-11-2024 Stone Weight [address] [facility] Baljit 09-27-2024 CNPN Telephone (HEMAWS) -- NAZARIO HUTTON ([id number]) 1950 M Date Time Provider Department 09/27/24 [...] visit scheduled with patient. Patient aware to knot picker cloth 24 hr urine container prior to 10/21 [...] Diagnosis:Hypercalcemia [E83.52] Order(s):CALCIUM, IONIZED [SQICA] Order #: [id number] FUTURE PROT ELEC UR 24HR W/M SPIKE AND INTERP [[id number]] Order #: [id number]. #:[id number] MONOCLONAL PROT 24 UR W/INTERP [[id number]] Order #: [id number]. #:[id number] PROTEIN, 24 HOUR URINE [[id number]] Reflex Order#: [id number] (Ord#:[id number])Spec. #:[id number] PROT ELEC UR 24HR W/M SPIKE (P) [[id number]] Reflex Order#: [id number] (Ord#:[id number])Spec. 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 Normal [facility] CBC W Auto Differential pane l (Bld)on 09-25-2024 Basophils (Bld) [#/Vol] 0.08 10*3/uL [facility] Basophils/100 WBC (Bld) 0.9 % [facility] Differential cell count method Nom (Bld) Auto [facility] Eosinophils (Bld) [#/Vol] 1.07 10*3/uL High [facility] Eosinophils/100 WBC (Bld) 12.4 % [facility] Erythrocyte distribution width (RBC) [Ratio] 13.5 % 11.5 - 15.0 % [facility] Hematocrit (Bld) [Volume fraction] 43.8 % 39.0 - 51.0 % [facility] Hemoglobin (Bld) [Mass/Vol] 15 g/dL 13.0 - 17.0 g/dL [facility] Immature granulocytes (Bld) [#/Vol] 0.03 10*3/uL [facility] Immature granulocytes/100 WBC (Bld) 0.3 % [facility] Interpretation and review of laboratory results Abnormal [facility] Lymphocytes (Bld) [#/Vol] 0.78 10*3/uL Low [facility] Lymphocytes/100 WBC (Bld) 9.1 % [facility] MCH (RBC) [Entitic mass] 34.4 pg High 26.0 - 34.0 pg [facility] MCHC (RBC) [Mass/Vol] 34.2 g/dL 30.5 - 36.0 g/dL [facility] MCV (RBC) [Entitic vol] 100.5 fL High 80.0 - 100.0 fL [facility] Monocytes (Bld) [#/Vol] 0.82 10*3/uL [facility] Monocytes/100 WBC (Bld) 9.5 % [facility] Neutrophils (Bld) [#/Vol] 5.82 10*3/uL [facility] Neutrophils/100 WBC (Bld) 67.8 % [facility] Nucleated RBC (Bld) [#/Vol] [facility] Nucleated RBC/100 WBC (Bld) [Ratio] 0 % /100 WBC [facility] Platelet mean volume (Bld) [Entitic vol] 10.1 fL 9.0 - 12.7 fL [facility] Platelets (Bld) [#/Vol] 245 10*3/uL [facility] RBC (Bld) [#/Vol] 4.36 10*6/uL 4.20 - 6.0 0 m/uL [facility] WBC (Bld) [#/Vol] 8.6 10*3/uL [facility] Basophils (Bld) [#/Vol] 0.08 10*3/uL Normal <0.11 [facility] Comment on above: Order Comment: Speci men Type: BLOOD SPECIMEN Ordering Facility: [facility] Address: [address] [place] [address] Performed By: #### C OPPER #### [facility] CLIA [id number] [address] [place] [address] [place] Basophils/100 WBC (Bld) 0.9 % Normal [facility] Comment on above: Order Comment: Speci men Type: BLOOD SPECIMEN Ordering Facility: [facility] Address: [address] [place] [address] Performed By: #### C OPPER #### [facility] CLIA [id number] [address] [place] [address] [place] Differential cell count method Nom (Bld) Auto Normal [facility] Comment on above: Order Comment: Speci men Type: BLOOD SPECIMEN Ordering Facility: [facility] Address: [address] [place] [address] Performed By: #### C OPPER #### [facility] CLIA [id number] [address] [place] [address] [place] Eosinophils (Bld) [#/Vol] 1.07 10*3/uL High <0.46 [facility] Comment on above: Order Comment: Speci men Type: BLOOD SPECIMEN Ordering Facility: [facility] Address: [address] [place] [address] Performed By: #### C OPPER #### [facility] CLIA [id number] [address] [place] [address] [place] Eosinophils/100 WBC (Bld) 12.4 % Normal [facility] Comment on above: Order Comment: Speci men Type: BLOOD SPECIMEN Ordering Facility: [facility] Address: [address] [place] [address] Performed By: #### C OPPER #### [facility] CLIA [id number] [address] [place] [address] [place] Erythrocyte distribution width (RBC) [Ratio] 13.5 % Normal 11.5-15.0 [facility] Comment on above: Order Comment: Speci men Type: BLOOD SPECIMEN Ordering Facility: [facility] Address: [address] [place] [address] Performed By: #### C OPPER #### [facility] CLIA [id number] [address] [place] [address] [place] Hematocrit (Bld) [Volume fraction] 43.8 % Normal 39.0-51.0 [facility] Comment on above: Order Comment: Speci men Type: BLOOD SPECIMEN Ordering Facility: [facility] Address: [address] [place] [address] Performed By: #### C OPPER #### [facility] CLIA [id number] [address] [place] [address] [place] Hemoglobin (Bld) [Mass/Vol] 15.0 g/dL Normal 13.0-17.0 [facility] Comment on above: Order Comment: Speci men Type: BLOOD SPECIMEN Ordering Facility: [facility] Address: [address] [place] [address] Performed By: #### C OPPER #### [facility] CLIA [id number] [address] [place] [address] [place] Immature granulocytes (Bld) [#/Vol] 0.03 10*3/uL Normal <0.10 [facility] Comment on above: Order Comment: Speci men Type: BLOOD SPECIMEN Ordering Facility: [facility] Address: [address] [place] [address] Performed By: #### C OPPER #### [facility] CLIA [id number] [address] [place] [address] [place] Immature granulocytes/100 WBC (Bld) 0.3 % Normal [facility] Comment on above: Order Comment: Speci men Type: BLOOD SPECIMEN Ordering Facility: [facility] Address: [address] [place] [address] Performed By: #### C OPPER #### [facility] CLIA [id number] [address] [place] [address] [place] Lymphocytes (Bld) [#/Vol] 0.78 10*3/uL Low 1.00-4.00 [facility] Comment on above: Order Comment: Speci men Type: BLOOD SPECIMEN Ordering Facility: [facility] Address: [address] [place] [address] Performed By: #### C OPPER #### [facility] CLIA [id number] [address] [place] [address] [place] Lymphocytes/100 WBC (Bld) 9.1 % Normal [facility] Comment on above: Order Comment: Speci men Type: BLOOD SPECIMEN Ordering Facility: [facility] Address: [address] [place] [address] Performed By: #### C OPPER #### [facility] CLIA [id number] [address] [place] [address] [place] MCH (RBC) [Entitic mass] 34.4 pg High 26.0-34.0 [facility] Comment on above: Order Comment: Speci men Type: BLOOD SPECIMEN Ordering Facility: [facility] Address: [address] [place] [address] Performed By: #### C OPPER #### [facility] CLIA [id number] [address] [place] [address] [place] MCHC (RBC) [Mass/Vol] 34.2 g/dL Normal 30.5-36.0 [facility] Comment on above: Order Comment: Speci men Type: BLOOD SPECIMEN Ordering Facility: [facility] Address: [address] [place] [address] Performed By: #### C OPPER #### [facility] CLIA [id number] [address] [place] [address] [place] MCV (RBC) [Entitic vol] 100.5 fL High 80.0-100.0 [facility] Comment on above: Order Comment: Speci men Type: BLOOD SPECIMEN Ordering Facility: [facility] Address: [address] [place] [address] Performed By: #### C OPPER #### [facility] CLIA [id number] [address] [place] [address] [place] Monocytes (Bld) [#/Vol] 0.82 10*3/uL Normal <0.87 [facility] Comment on above: Order Comment: Speci men Type: BLOOD SPECIMEN Ordering Facility: [facility] Address: [address] [place] [address] Performed By: #### C OPPER #### [facility] CLIA [id number] [address] [place] [address] [place] Monocytes/100 WBC (Bld) 9.5 % Normal [facility] Comment on above: Order Comment: Speci men Type: BLOOD SPECIMEN Ordering Facility: [facility] Address: [address] [place] [address] Performed By: #### C OPPER #### [facility] CLIA [id number] [address] [place] [address] [place] Neutrophils (Bld) [#/Vol] 5.82 10*3/uL Normal 1.45-7.50 [facility] Comment on above: Order Comment: Speci men Type: BLOOD SPECIMEN Ordering Facility: [facility] Address: [address] [place] [address] Performed By: #### C OPPER #### [facility] CLIA [id number] [address] [place] [address] [place] Neutrophils/100 WBC (Bld) 67.8 % Normal [facility] Comment on above: Order Comment: Speci men Type: BLOOD SPECIMEN Ordering Facility: [facility] Address: [address] [place] [address] Performed By: #### C OPPER #### [facility] CLIA [id number] [address] [place] [address] [place] Nucleated RBC (Bld) [#/Vol] 10*3/uL Normal <0.01 [facility] Comment on above: Order Comment: Speci men Type: BLOOD SPECIMEN Ordering Facility: [facility] Address: [address] [place] [address] Performed By: #### C OPPER #### [facility] CLIA [id number] [address] [place] [address] [place] Nucleated RBC/100 WBC (Bld) [Ratio] 0.0 /100 WBC Normal [facility] Comment on above: Order Comment: Speci men Type: BLOOD SPECIMEN Ordering Facility: [facility] Address: [address] [place] [address] Performed By: #### C OPPER #### [facility] CLIA [id number] [address] [place] [address] [place] Platelet mean volume (Bld) [Entitic vol] 10.1 fL Normal 9.0-12.7 [facility] Comment on above: Order Comment: Speci men Type: BLOOD SPECIMEN Ordering Facility: [facility] Address: [address] [place] [address] Performed By: #### C OPPER #### [facility] CLIA [id number] [address] [place] [address] [place] Platelets (Bld) [#/Vol] 245 10*3/uL Normal 150-400 [facility] Comment on above: Order Comment: Speci men Type: BLOOD SPECIMEN Ordering Facility: [facility] Address: [address] [place] [address] Performed By: #### C OPPER #### [facility] CLIA [id number] [address] [place] [address] [place] RBC (Bld) [#/Vol] 4.36 10*6/uL Normal 4.20-6.00 [facility] Comment on above: Order Comment: Speci men Type: BLOOD SPECIMEN Ordering Facility: [facility] Address: [address] [place] [address] Performed By: #### C OPPER #### [facility] CLIA [id number] [address] [place] [address] [place] WBC (Bld) [#/Vol] 8.60 10*3/uL Normal 3.70-11.00 [facility] Comment on above: Order Comment: Speci men Type: BLOOD SPECIMEN Ordering Facility: [facility] Address: [address] [place] [address] Performed By: #### C OPPER #### [facility] CLIA [id number] [address] [place] [address] [place] CNOVSPon 09-25-2024 CNOVSP Visit (SP) Office (H EMAWS) -- NAZARIO HUTTON ([id number]) 1950 M Date Time Provider Department 09/25/24 [...] due to lower GI bleed from diverticulosis) Surys nodules 03/15/2021 Valvular heart disease 05/18/2023 Echo [...] Father 53 Alzheimer's Disease No Family History Baylis (more content not included)... Normal [facility] COPPER BLOODon 09-25-2024 Copper [Mass/Vol] 127 ug/dL Normal 70-140 [facility] Comment on above: Order Comment: Speci men Type: BLOOD SPECIMEN Ordering Facility: [facility] Address: [address] [place] [address] Result Comment: This test was developed, and its performance characteristics determined by the [facility] Department of Pathology and Laboratory Medicine. It has not been cleared or approved by the FDA. The [facility] Department of Pathology and Laboratory Medicine is regulated under CLIA as qualified to perform high-complexity testing. This test is used for clinical purposes. It should not be regarded as investigational or for research. Performed By: #### C OPPER #### [facility] CLIA [id number] [address] [place] [address] [place] Comprehensive metabolic 2000 panelOrdered By: Blanca Odonnell on 09-25-2024 Albumin [Mass/Vol] 4.6 g/dL 3.9 - 4.9 g/dL [facility] ALP [Catalytic activity/Vol] 162 U/L High 38 - 113 U/L [facility] ALT [Catalytic activity/Vol] 36 U/L 10 - 54 U/L [facility] Anion gap [Moles/Vol] 13 mmol/L 8 - 15 mmol/L [facility] AST [Catalytic activity/Vol] 55 U/L High 14 - 40 U/L [facility] Bilirubin [Mass/Vol] 0.7 mg/dL 0.2 - 1 .3 mg/dL [facility] Calcium [Mass/Vol] 10.3 mg/dL High 8.5 - 10. 2 mg/dL [facility] Chloride [Moles/Vol] 101 mmol/L 98 - 10 7 mmol/L [facility] CO2 [Moles/Vol] 21 mmol/L Low 22 - 30 mmol/L [facility] Creatinine [Mass/Vol] 0.67 mg/dL Low 0.73 - 1.22 mg/dL [facility] GFR/1.73 sq M.predicted among non-blacks MDRD (S/P/Bld) [Vol rate/Area] 99 mL/min/{1.73_m2} - PINF [facility] Comment on above: Estimated Glomerular Filtration Rate [...] 101 mg/dL High 74 - 99 mg/dL [facility] Comment on above: The [place] [employer] Association (ADA) provides guidance for [...] Standards of Medical Care in Diabetes 2016, [place] [employer]. Diabetes Care. 2016.39(Suppl 1). Interpretation and review of laboratory results Abnormal [facility] Potassium [Moles/Vol] 4.7 mmol/L 3.7 - 5.1 mmol/L [facility] Protein [Mass/Vol] 8.2 g/dL High 6.3 - 8.0 g/dL [facility] Sodium [Moles/Vol] 135 mmol/L Low 136 - 144 mmol/L [facility] Urea nitrogen [Mass/Vol] 14 mg/dL 9 - 24 mg/dL [facility] Comprehensive metabolic 2000 panelon 09-25-2024 Albumin [Mass/Vol] 4.6 g/dL Normal 3.9-4.9 [facility] Comment on above: Order Comment: Speci men Type: URINE SPECIMEN Ordering Facility: [facility] Address: [address] [place] [address] Performed By: #### U 24MPA #### [facility] CLIA [id number] [address] [place] [address] [place] ALP [Catalytic activity/Vol] 162 U/L High 38-113 [facility] Comment on above: Order Comment: Speci men Type: URINE SPECIMEN Ordering Facility: [facility] Address: [address] [place] [address] Performed By: #### U 24MPA #### [facility] CLIA [id number] [address] [place] [address] [place] ALT [Catalytic activity/Vol] 36 U/L Normal 10-54 [facility] Comment on above: Order Comment: Speci men Type: URINE SPECIMEN Ordering Facility: [facility] Address: [address] [place] [address] Performed By: #### U 24MPA #### [facility] CLIA [id number] [address] [place] [address] [place] Anion gap [Moles/Vol] 13 mmol/L Normal 8-15 [facility] Comment on above: Order Comment: Speci men Type: URINE SPECIMEN Ordering Facility: [facility] Address: [address] [place] [address] Performed By: #### U 24MPA #### [facility] CLIA [id number] [address] [place] [address] [place] AST [Catalytic activity/Vol] 55 U/L High 14-40 [facility] Comment on above: Order Comment: Speci men Type: URINE SPECIMEN Ordering Facility: [facility] Address: [address] [place] [address] Performed By: #### U 24MPA #### [facility] CLIA [id number] [address] [place] [address] [place] Bilirubin [Mass/Vol] 0.7 mg/dL Normal 0.2-1.3 [facility] Comment on above: Order Comment: Speci men Type: URINE SPECIMEN Ordering Facility: [facility] Address: [address] [place] [address] Performed By: #### U 24MPA #### [facility] CLIA [id number] [address] [place] [address] [place] Calcium [Mass/Vol] 10.3 mg/dL High 8.5-10.2 [facility] Comment on above: Order Comment: Speci men Type: URINE SPECIMEN Ordering Facility: [facility] Address: [address] [place] [address] Performed By: #### U 24MPA #### [facility] CLIA [id number] [address] [place] [address] [place] Chloride [Moles/Vol] 101 mmol/L Normal 98-107 [facility] Comment on above: Order Comment: Speci men Type: URINE SPECIMEN Ordering Facility: [facility] Address: [address] [place] [address] Performed By: #### U 24MPA #### [facility] CLIA [id number] [address] [place] [address] [place] CO2 [Moles/Vol] 21 mmol/L Low 22-30 [facility] Comment on above: Order Comment: Speci men Type: URINE SPECIMEN Ordering Facility: [facility] Address: [address] [place] [address] Performed By: #### U 24MPA #### [facility] CLIA [id number] [address] [place] [address] [place] Creatinine [Mass/Vol] 0.67 mg/dL Low 0.73-1.22 [facility] Comment on above: Order Comment: Medina peck Type: URINE SPECIMEN Ordering Facility: [facility] Address: [address] [place] [address] Performed By: #### U 24MPA #### [facility] CLIA [id number] [address] [place] [address] [place] Creatinine and Glomerular filtration rate.predicted panel (S/P/Bld) 99 mL/min/1.73m??? Normal >=60 [facility] Comment on above: Order Comment: Medina peck Type: URINE SPECIMEN Ordering Facility: [facility] Address: [address] [place] [address] Result Comment: Micaela mated Glomerular Filtration Rate [...] accurately reflect actual GFR. Performed By: #### U 24MPA #### [facility] CLIA [id number] [address] [place] [address] [place] Glucose [Mass/Vol] 101 mg/dL High 74-99 [facility] Comment on above: Order Comment: Medina peck Type: URINE SPECIMEN Ordering Facility: [facility] Address: [address] [place] [address] Result Comment: The [place] Diabetes Association (ADA) provides guidance for cutoff [...] Standards of Medical Care in Diabetes 2016, [place] [employer]. Diabetes Care. 2016.39(Suppl 1). Performed By: #### U 24MPA #### [facility] CLIA [id number] [address] [place] [address] [place] Potassium [Moles/Vol] 4.7 mmol/L Normal 3.7-5.1 [facility] Comment on above: Order Comment: Speci men Type: URINE SPECIMEN Ordering Facility: [facility] Address: [address] [place] [address] Performed By: #### U 24MPA #### [facility] CLIA [id number] [address] [place] [address] [place] Protein [Mass/Vol] 8.2 g/dL High 6.3-8.0 [facility] Comment on above: Order Comment: Speci men Type: URINE SPECIMEN Ordering Facility: [facility] Address: [address] [place] [address] Performed By: #### U 24MPA #### [facility] CLIA [id number] [address] [place] [address] [place] Sodium [Moles/Vol] 135 mmol/L Low 136-144 [facility] Comment on above: Order Comment: Speci men Type: URINE SPECIMEN Ordering Facility: [facility] Address: [address] [place] [address] Performed By: #### U 24MPA #### [facility] CLIA [id number] [address] [place] [address] [place] Urea nitrogen [Mass/Vol] 14 mg/dL Normal 9-24 [facility] Comment on above: Order Comment: Speci men Type: URINE SPECIMEN Ordering Facility: [facility] Address: [address] [place] [address] Performed By: #### U 24MPA #### [facility] CLIA [id number] [address] [place] [address] [place] [facility]olate [facility] Folate [Mass/Vol] 13.3 ng/mL Normal >4.7 [facility] Comment on above: Order Comment: Speci men Type: BLOOD SPECIMEN Ordering Facility: [facility] Address: [address] [place] [address] Performed By: #### 2 284-8, 2885-2, 2132-9 #### [facility] CLIA [id number] [address] [place] IMMUNOFIXATION SCREEN, SERUM on 09-25-2024 INTERPRETATION (MPA) Atypical restricted bands are present in the IgG and kappa regions. Consistent with IgG kappa monoclonal gammopathy. Normal [facility] Comment on above: Order Comment: Speci men Type: BLOOD SPECIMEN Ordering Facility: [facility] Address: [address] [place] [address] Performed By: #### C OPPER #### [facility] CLIA [id number] [address] [place] [address] [place] MPA RESULT M protein is present. Abnormal No M p rotein is identified. [facility] Comment on above: Order Comment: Speci men Type: BLOOD SPECIMEN Ordering Facility: [facility] Address: [address] [place] [address] Performed By: #### C OPPER #### [facility] CLIA [id number] [address] [place] [address] [place] STAFF REVIEW (MPA) Reviewed by Derrick Rawls MD, Ph.D ([id number]) Normal [facility] Comment on above: Order Comment: Speci men Type: BLOOD SPECIMEN Ordering Facility: [facility] Address: [address] [place] [address] Performed By: #### C OPPER #### [facility] CLIA [id number] [address] [place] [address] [place] IMMUNOGLOBULINS,IGG,IGA,IGMo n 09-25-2024 IgA [Mass/Vol] 361 mg/dL Normal 70-400 [facility] Comment on above: Order Comment: Speci men Type: BLOOD SPECIMEN Ordering Facility: [facility] Address: [address] [place] [address] Performed By: #### 1 0886-0, 08858-4, LIPNF, 3084-1 #### [facility] CLIA [id number] [address] [place] [address] [place] IgG [Mass/Vol] 1487 mg/dL Normal 700-1600 [facility] Comment on above: Order Comment: Kristii liv Type: BLOOD SPECIMEN Ordering Facility: [facility] Address: [address] [place] [address] Performed By: #### 1 0886-0, 53351-5, LIPNF, 3084-1 #### [facility] CLIA [id number] [address] [place] [address] [place] IgM [Mass/Vol] 46 mg/dL Normal 40-230 [facility] Comment on above: Order Comment: Kristii liv Type: BLOOD SPECIMEN Ordering Facility: [facility] Address: [address] [place] [address] Performed By: #### 1 0886-0, 65794-6, LIPNF, 3084-1 #### [facility] CLIA [id number] [address] [place] [address] [place] KAPPA/NEUMANN,FREE,SERon 2024 Immunoglobulin light chains.kappa.free (S) [Mass/Vol] 35.1 mg/L High 3.3-19.4 [facility] Comment on above: Order Comment: Medina peck Type: BLOOD SPECIMEN Ordering Facility: [facility] Address: [address] [place] [address] Result Comment: Rare ly, increased serum free light chains levels may not be detected or accurately quantified due to prozone phenomenon or in high viscosity samples using this immunoturbidimetric assay. Correlation with other laboratory results and clinical findings is recommended. The Diaz Free Light Chain was performed using the Binding Site Optilite immunoturbidimetric method. Result obtained with different assay methods or kits cannot be used interchangeably. Performed By: #### C OPPER #### [facility] CLIA [id number] [address] [place] [address] [place] Immunoglobulin light chains.kappa/Immunogl obulin light chains.lambda (S) [Mass ratio] 1.02 Normal 0.26-1.65 [facility] Comment on above: Order Comment: Speci men Type: BLOOD SPECIMEN Ordering Facility: [facility] Address: [address] [place] [address] Performed By: #### C OPPER #### [facility] CLIA [id number] [address] [place] [address] [place] Immunoglobulin light chains.lambda.free [Mass/Vol] 34.4 mg/L High 5.7-26.3 [facility] Comment on above: Order Comment: Speci men Type: BLOOD SPECIMEN Ordering Facility: [facility] Address: [address] [place] [address] Result Comment: Rare ly, increased serum free [...] cannot be used interchangeably. Performed By: #### C OPPER #### [facility] CLIA [id number] [address] [place] [address] [place] MONOCLONAL PROT UR W/INTERPo n 09-25-2024 STAFF REVIEW ([facility]) Reviewed by Derrick Rawls MD, Ph.D ([id number]) Normal [facility] Comment on above: Order Comment: Speci men Type: URINE SPECIMEN Ordering Facility: [facility] Address: [address] [place] [address] Performed By: #### U 24MPA #### [facility] CLIA [id number] [address] [place] [address] [place] UMPA RESULT No M protein is identified. Normal No M protein is identified. [facility] Comment on above: Order Comment: Speci men Type: URINE SPECIMEN Ordering Facility: [facility] Address: [address] [place] [address] Performed By: #### U 24MPA #### [facility] CLIA [id number] [address] [place] [address] [place] Methylmalonate SerPl-sCncon 09-25-2024 Methylmalonate [Moles/Vol] 0.12 umol/L Normal <=0.40 [facility] Comment on above: Order Comment: Spec men Type: URINE SPECIMEN Ordering Facility: [facility] Address: [address] [place] [address] Result Comment: This test was developed, and its performance characteristics determined by the [facility] Department of Pathology and Laboratory Medicine. It has not been cleared or approved by the FDA. The [facility] Department of Pathology and Laboratory Medicine is regulated under CLIA as qualified to perform high-complexity testing. This test is used for clinical purposes. It should not be regarded as investigational or for research. Performed By: #### U 24MPA #### [facility] CLIA [id number] [address] [place] [address] [place] PROTEIN ELECTROPHORESIS SERU M (P)on 09-25-2024 Albumin [Mass/Vol] 4.60 g/dL Normal 3.43-5.41 [facility] Comment on above: Order Comment: Speci men Type: BLOOD SPECIMEN Ordering Facility: [facility] Address: [address] [place] [address] Performed By: #### 1 989-3 #### [facility] CLIA [id number] [address] [place] [address] [place] Alpha 1 globulin Elph [Mass/Vol] 0.33 g/dL Normal 0.18-0.43 [facility] Comment on above: Order Comment: Speci men Type: BLOOD SPECIMEN Ordering Facility: [facility] Address: [address] [place] [address] Performed By: #### 1 989-3 #### [facility] CLIA [id number] [address] [place] [address] [place] Alpha 2 globulin Elph [Mass/Vol] 0.76 g/dL Normal 0.42-0.98 [facility] Comment on above: Order Comment: Speci men Type: BLOOD SPECIMEN Ordering Facility: [facility] Address: [address] [place] [address] Performed By: #### 1 989-3 #### [facility] CLIA [id number] [address] [place] [address] [place] Beta globulin Elph [Mass/Vol] 1.12 g/dL Normal 0.61-1.17 [facility] Comment on above: Order Comment: Speci men Type: BLOOD SPECIMEN Ordering Facility: [facility] Address: [address] [place] [address] Performed By: #### 1 989-3 #### [facility] CLIA [id number] [address] [place] [address] [place] Gamma globulin Elph [Mass/Vol] 1.28 g/dL Normal 0.53-1.51 [facility] Comment on above: Order Comment: Speci men Type: BLOOD SPECIMEN Ordering Facility: [facility] Address: [address] [place] [address] Performed By: #### 1 989-3 #### [facility] CLIA [id number] [address] [place] [address] [place] INTERPRETATION COMMENT FOR PROTEIN ELECTROPHORESIS The atypical region is relatively poorly defined and may represent an unusual presentation of polyclonal immunoglobulins, but cannot rule out the presence of a low level M protein. If clinically indicated, monoclonal protein analysis and serum free light chain analysis are suggested to evaluate further for monoclonal gammopathy. Normal [facility] Comment on above: Order Comment: Speci men Type: BLOOD SPECIMEN Ordering Facility: [facility] Address: [address] [place] [address] Performed By: #### 1 989-3 #### [facility] CLIA [id number] [address] [place], [place] [address] [place] M-PROTEIN LOCATION Normal [facility] Comment on above: Order Comment: Speci men Type: BLOOD SPECIMEN Ordering Facility: [facility] Address: [address] [place] [address] Result Comment: Not Applicable. Performed By: #### 1 989-3 #### [facility] CLIA [id number] [address] [place] [address] [place] Protein Fractions [Interp] An atypical region of restricted mobility is identified on protein electrophoresis. Abnormal No definitive M protein is identified on protein electrophore sis. [facility] Comment on above: Order Comment: Speci men Type: BLOOD SPECIMEN Ordering Facility: [facility] Address: [address] [place] [address] Performed By: #### 1 989-3 #### [facility] CLIA [id number] [address] [place] [address] [place] Protein.monoclonal Elph [Mass/Vol] 0.00 g/dL Normal <=0.00 [facility] Comment on above: Order Comment: Speci men Type: BLOOD SPECIMEN Ordering Facility: [facility] Address: [address] [place], [place] [address] Performed By: #### 1 989-3 #### [facility] CLIA [id number] [address] [place] [address] [place] SPE STAFF REVIEW Reviewed by Derrick Rawls MD, Ph.D ([id number]) Normal [facility] Comment on above: Order Comment: Speci men Type: BLOOD SPECIMEN Ordering Facility: [facility] Address: [address] [place] [address] Performed By: #### 1 989-3 #### [facility] CLIA [id number] [address] [place] [address] [place] Prot SerPl-mCncon 09-25-2024 Protein [Mass/Vol] 8.1 g/dL High 6.3-8.0 [facility] Comment on above: Order Comment: Speci men Type: BLOOD SPECIMEN Ordering Facility: [facility] Address: [address] [place] [address] Performed By: #### 2 284-8, 2885-2, 2132-9 #### [facility] CLIA [id number] [address] [place] [address] [place] Prot Ur-mCncon 09-25-2024 Protein (U) [Mass/Vol] 6 mg/dL Normal 0-20 [facility] Comment on above: Order Comment: Speci men Type: BLOOD SPECIMEN Ordering Facility: [facility] Address: [address] [place] [address] Performed By: #### 1 989-3 #### [facility] CLIA [id number] [address] [place] [address] [place] URINE PROTEIN ELECTROPHORESI S RANDOM (P)on 09-25-2024 Albumin Elph (U) [Mass fraction] 39.64 % Normal [facility] Comment on above: Order Comment: Speci men Type: URINE SPECIMEN Ordering Facility: [facility] Address: [address] [place] [address] Performed By: #### U 24MPA #### [facility] CLIA [id number] [address] [place] [address] [place] Alpha 1 globulin Elph (U) [Mass fraction] 3.33 % Normal [facility] Comment on above: Order Comment: Speci men Type: URINE SPECIMEN Ordering Facility: [facility] Address: [address] [place] [address] Performed By: #### U 24MPA #### [facility] CLIA [id number] [address] [place] [address] [place] Alpha 2 globulin Elph (U) [Mass fraction] 15.07 % Normal [facility] Comment on above: Order Comment: Speci men Type: URINE SPECIMEN Ordering Facility: [facility] Address: [address] [place] [address] Performed By: #### U 24MPA #### [facility] CLIA [id number] [address] [place] [address] [place] Beta globulin Elph (U) [Mass fraction] 22.71 % Normal [facility] Comment on above: Order Comment: Speci men Type: URINE SPECIMEN Ordering Facility: [facility] Address: [address] [place] [address] Performed By: #### U 24MPA #### [facility] IA [id number] [address] [place] [address] [place] Gamma globulin Elph (U) [Mass fraction] 19.25 % Normal [facility] Comment on above: Order Comment: Speci men Type: URINE SPECIMEN Ordering Facility: [facility] Address: [address] [place] [address] Performed By: #### U 24MPA #### [facility] IA [id number] [address] [place] [address] [place] Protein Fractions Elph Kamaljit (U) [Interp] No definitive M protein is identified on protein electrophoresis. Normal No definitive M protein is identified on protein electrophore sis. [facility] Comment on above: Order Comment: Speci men Type: URINE SPECIMEN Ordering Facility: [facility] Address: [address] [place] [address] Performed By: #### U 24MPA #### [facility] IA [id number] [address] [place] [address] [place] STAFF REVIEW (URINE ELECTRO) Reviewed by Derrick Rawls MD, Ph.D ([id number]) Normal [facility] Comment on above: Order Comment: Speci men Type: URINE SPECIMEN Ordering Facility: [facility] Address: [address] [place] [address] Performed By: #### U 24MPA #### [facility] CLIA [id number] [address] [place] [address] [id number] [place] [address] [place] Vit B12 SerPl-mCncon 025 Cobalamin (Vitamin B12) [Mass/Vol] 1008 pg/mL Normal 232-1245 [facility] Comment on above: Order Comment: Speci men Type: BLOOD SPECIMEN Ordering Facility: [facility] Address: [address] [place] [address] Performed By: #### 2 284-8, 2885-2, 2132-9 #### [facility] CLIA [id number] [address] [place] [address] [place] Abdomen Single Viewon 2024 Abdomen Single View Normal [facility] Gastroenterology Visit Repor ton 09-19-2024 Gastroenterology Visit Report Normal [facility] AFP, Tumor Markeron 09-17-19 25 AFP TUMOR VASILE 2.8 ng/mL Normal 0.0-8.4 [facility] Comment on above: Order Comment: Test( s) 140216-Yzdxdg, Serum or Plasmawas developed and its performance characteristicsdetermined by [employer]. It has not been cleared or approvedby the Food and Drug Administration.N Result Comment: [facility] Electrochemiluminescence Immunoassay(ECLIA)Values obtained with different assay methods or kits cannotbe used interchangeably. Results cannot be interpreted asabsolute evidence of the presence or absence of malignantdisease.This test is not interpretable in females. Performed By: #### L 803.2200, L501.5200, L503.5510, L501.4700, L3400.0700, L3300.0100, L800.1280, L3100.1850, L501.9985, L300.3900, L503.6550, L501.5101, L3100.5450, L501.2300, L100.0100, L3300.0700, L501.6710, L500.4050, L503.6030 ####[facility] [address] [place], [place], [id number] GALLO w/ Reflex Mult Confirmon 09-17-2024 ANTI-DNA (DS)AB TNP Normal [facility] Comment on above: Performed By: #### L 803.2200, L501.5200, L503.5510, L501.4700, L3400.0700, L3300.0100, L800.1280, L3100.1850, L501.9985, L300.3900, L503.6550, L501.5101, L3100.5450, L501.2300, L100.0100, L3300.0700, L501.6710, L500.4050, L503.6030 ####[facility] [address] [place], [place], [id number] ANTISCLERODERM TNP Normal [facility] Comment on above: Performed By: #### L 803.2200, L501.5200, L503.5510, L501.4700, L3400.0700, L3300.0100, L800.1280, L3100.1850, L501.9985, L300.3900, L503.6550, L501.5101, L3100.5450, L501.2300, L100.0100, L3300.0700, L501.6710, L500.4050, L503.6030 ####[facility] [address] [place], [place], [id number] Anti-Smooth Muscle ABSon ANTISMOOTH MUSC 10 Units Normal 0-19 [facility] Comment on above: Order Comment: Test( s) 774282-Runbzy, Serum or Plasmawas developed and its performance characteristicsdetermined by [employer]. It has not been cleared or approvedby the Food and Drug Administration. Result Comment: Nega tive 0 - 19 Weak positive 20 - 30 Moderate to strong positive >30 Actin Antibodies are found in 52-85% of patients with autoimmune hepatitis or chronic active hepatitis and in 22% of patients with primary biliary cirrhosis. Performed By: #### L 803.2200, L501.5200, L503.5510, L501.4700, L3400.0700, L3300.0100, L800.1280, L3100.1850, L501.9985, L300.3900, L503.6550, L501.5101, L3100.5450, L501.2300, L100.0100, L3300.0700, L501.6710, L500.4050, L503.6030 ####[facility] [address] [facility] [place], [address] Ceruloplasminon 09-17-2024 CERULOPLASMIN 25.6 mg/dL Normal 16.0-31.0 [facility] Comment on above: Order Comment: Test( s) 345216-Znkuid, Serum or Plasmawas developed and its performance characteristicsdetermined by [employer]. It has not been cleared or approvedby the Food and Drug Administration. Performed By: #### L 803.2200, L501.5200, L503.5510, L501.4700, L3400.0700, L3300.0100, L800.1280, L3100.1850, L501.9985, L300.3900, L503.6550, L501.5101, L3100.5450, L501.2300, L100.0100, L3300.0700, L501.6710, L500.4050, L503.6030 ####[facility] [address] [facility] [place], [address] Copper, Serum or Plasmaon COPPER, SERUM 119 ug/dL Normal 69-132 [facility] Comment on above: Order Comment: Test( s) 645562-Wvbknq, Serum or Plasmawas developed and its performance characteristicsdetermined by [employer]. It has not been cleared or approvedby the Food and Drug Administration. Result Comment: Dete ction Limit = 5 Performed By: #### L 803.2200, L501.5200, L503.5510, L501.4700, L3400.0700, L3300.0100, L800.1280, L3100.1850, L501.9985, L300.3900, L503.6550, L501.5101, L3100.5450, L501.2300, L100.0100, L3300.0700, L501.6710, L500.4050, L503.6030 ####[facility] [address] [place], [address] Haptoglobinon 09-17-2024 HAPTOGLOBIN 286 mg/dL Normal 34-355 [facility] Comment on above: Order Comment: Test( s) [id number]-Qpaeqi, Serum or Plasmawas developed and its performance characteristicsdetermined by [employer]. It has not been cleared or approvedby the Food and Drug Administration. Result Comment: Perf ormed at: [facility] [address] [id number] Director: José Miguel Alba PhD, Phone: [phone] at: [facility] [address] [id number] Director: Zafar Browne MD, Phone: [phone] Performed By: #### L 803.2200, L501.5200, L503.5510, L501.4700, L3400.0700, L3300.0100, L800.1280, L3100.1850, L501.9985, L300.3900, L503.6550, L501.5101, L3100.5450, L501.2300, L100.0100, L3300.0700, L501.6710, L500.4050, L503.6030 ####[facility] [address] [place], [place], [id number] L501.5101on 09-17-2024 GGTP 150 IU/L Abnormal 0-65 [facility] Comment on above: Order Comment: Test( s) [id number]-Mijoso, Serum or Plasmawas developed and its performance characteristicsdetermined by [employer]. It has not been cleared or approvedby the Food and Drug Administration. Performed By: #### L 803.2200, L501.5200, L503.5510, L501.4700, L3400.0700, L3300.0100, L800.1280, L3100.1850, L501.9985, L300.3900, L503.6550, L501.5101, L3100.5450, L501.2300, L100.0100, L3300.0700, L501.6710, L500.4050, L503.6030 ####[facility] [address] [facility] [place], [address] Anti-Mitochondrial ABon 08-25 ANTIMITOCHON AB <20.0 Normal 0.0-20.0 [facility] Comment on above: Result Comment: Nega tive 0.0 - 20.0 Equivocal 20.1 - 24.9 Positive >24.9Mitochondrial (M2) Antibodies are found in 90-96% ofpatients with primary biliary cirrhosis. Performed By: #### L 803.2200, L501.5200, L503.5510, L501.4700, L3400.0700, L3300.0100, L800.1280, L3100.1850, L501.9985, L300.3900, L503.6550, L501.5101, L3100.5450, L501.2300, L100.0100, L3300.0700, L501.6710, L500.4050, L503.6030 ####[facility] [address] [facility] [place], [address] GALLO serumOrdered By: Shubham Blanco on 09-12-2024 Anti-Nuclear Antibody Screen Negative Negative [facility] Comment on above: Performed at: [address] [id number] Director: José Miguel Alba PhD, Phone: [phone] Absolute lymphocyte countOrd ered By: Shubham Blanco on 09-12-2024 Lymphocytes Auto (Unsp spec) [#/Vol] 0.77 10*3/uL Low 0.83-4.51 [facility] Absolute neutrophil countOrd ered By: Shubham Blanco on 09-12-2024 Neutrophils (Bld) [#/Vol] 5.1 10*3/uL 2.0-7.7 [facility] Actin IgG QnOrdered By: Nilda Blanco on 09-12-2024 Anti-Smooth Muscle Antibody 10 Units 0-19 [facility] Comment on above: Negative 0 - 19 Weak positive 20 - 30 Moderate to strong positive >30 Actin Antibodies are found in 52-85% of patients with autoimmune hepatitis or chronic active hepatitis and in 22% of patients with primary biliary cirrhosis. Albumin to globulin ratioOrd ered By: Shubham Blanco on 09-12-2024 Albumin/Globulin [Mass ratio] 0.8 {ratio} Low 0.9-2.4 [facility] Alpha fetoprotein measuremen t as tumor markerOrdered By: Shubham Blanco on 09-12-2024 Tumor Marker Alpha Fetoprotein 2.8 ng/mL 0.0-8.4 [facility] Comment on above: [facility] El ectrochemiluminescence Immunoassay(ECLIA)Values obtained with different assay methods or kits cannotbe used interchangeably. Results cannot be interpreted asabsolute evidence of the presence or absence of malignantdisease.This test is not interpretable in females. Ammoniaon 09-12-2024 Ammonia (P) [Moles/Vol] 30.0 umol/L Normal 11-32 [facility] Comment on above: Performed By: #### L 803.2200, L501.5200, L503.5510, L501.4700, L3400.0700, L3300.0100, L800.1280, L3100.1850, L501.9985, L300.3900, L503.6550, L501.5101, L3100.5450, L501.2300, L100.0100, L3300.0700, L501.6710, L500.4050, L503.6030 ####[facility] [address] [place], [place], [id number] Automated lymphocyte count a s percentage of total leukocytesOrdered By: Shubham Blanco on 09-12-2024 Lymphocytes/100 WBC Auto (Unsp spec) 9.8 % Low 19-41 [facility] Basophil percentageOrdered B y: Shubham Blanco on 09-12-2024 Basophils/100 WBC (Bld) 0.6 % 0-1 [facility] Bilirubin directOrdered By: Shubham Blanco on 09-12-2024 Bilirubin.direct [Mass/Vol] 0.18 mg/dL 0.00-0.30 [facility] Bilirubin, Directon 09-12-19 25 Bilirubin.direct [Mass/Vol] 0.18 mg/dL Normal 0.00-0.30 [facility] Comment on above: Performed By: #### L 803.2200, L501.5200, L503.5510, L501.4700, L3400.0700, L3300.0100, L800.1280, L3100.1850, L501.9985, L300.3900, L503.6550, L501.5101, L3100.5450, L501.2300, L100.0100, L3300.0700, L501.6710, L500.4050, L503.6030 ####[facility] [address] [facility] [place], [place], [id number] Bilirubin, totalOrdered By: Shubham Blanco on 09-12-2024 Bilirubin [Mass/Vol] 0.70 mg/dL 0.20-1.00 [facility] Comment on above: For patients on eltr ombopag therapy, use of Dimension [place] TBIL is not recommended. Blood urea nitrogen (BUN)/cr eatinine ratioOrdered By: Shubham Blanco on 09-12-2024 Urea nitrogen/Creatinine [Mass ratio] 15.3 mg/mg 10-20 [facility] C-reactive protein measureme nt by high sensitivity methodOrdered By: Shubham Blanco on 09-12-2024 C-Reactive Protein Extended Range 10.80 mg/L High 0.0-3.0 [facility] Comment on above: C-Reactive Protein ( CRP) provides useful information for thediagnosis, therapy and monitoring of inflammatory processesand associated diseases. For the evaluation of Relative Riskfor Cardiovascular Disease, a High Sensitivity CRP (HSCRP)should be ordered. C-reactive protein measurement by high sensitivity method 10.80 mg/L High 0.0-3.0 [facility] Comment on above: C-Reactive Protein ( CRP) provides useful information for thediagnosis, therapy and monitoring of inflammatory processesand associated diseases. For the evaluation of Relative Riskfor Cardiovascular Disease, a High Sensitivity CRP (HSCRP)should be ordered. CBC W/Diff, Automatedon 02-2 0-2024 Absolute Lymph 0.77 X10 3/uL Low 0.83-4.51 [facility] Comment on above: Performed By: #### L 803.2200, L501.5200, L503.5510, L501.4700, L3400.0700, L3300.0100, L800.1280, L3100.1850, L501.9985, L300.3900, L503.6550, L501.5101, L3100.5450, L501.2300, L100.0100, L3300.0700, L501.6710, L500.4050, L503.6030 ####[facility] [address] [place], [address] Absolute Neut 5.1 X10 3/uL Normal 2.0-7.7 [facility] Comment on above: Performed By: #### L 803.2200, L501.5200, L503.5510, L501.4700, L3400.0700, L3300.0100, L800.1280, L3100.1850, L501.9985, L300.3900, L503.6550, L501.5101, L3100.5450, L501.2300, L100.0100, L3300.0700, L501.6710, L500.4050, L503.6030 ####[facility] [address] [place], [address] Basophils/100 WBC (Bld) 0.6 % Normal 0-1 [facility] Comment on above: Performed By: #### L 803.2200, L501.5200, L503.5510, L501.4700, L3400.0700, L3300.0100, L800.1280, L3100.1850, L501.9985, L300.3900, L503.6550, L501.5101, L3100.5450, L501.2300, L100.0100, L3300.0700, L501.6710, L500.4050, L503.6030 ####[facility] [address] [place], [address] Eosinophils/100 WBC (Bld) 10.9 % High 0-5 [facility] Comment on above: Performed By: #### L 803.2200, L501.5200, L503.5510, L501.4700, L3400.0700, L3300.0100, L800.1280, L3100.1850, L501.9985, L300.3900, L503.6550, L501.5101, L3100.5450, L501.2300, L100.0100, L3300.0700, L501.6710, L500.4050, L503.6030 ####[facility] [address] [place], [address] Erythrocyte distribution width (RBC) [Ratio] 13.2 % Normal 11.6-14.6 [facility] Comment on above: Performed By: #### L 803.2200, L501.5200, L503.5510, L501.4700, L3400.0700, L3300.0100, L800.1280, L3100.1850, L501.9985, L300.3900, L503.6550, L501.5101, L3100.5450, L501.2300, L100.0100, L3300.0700, L501.6710, L500.4050, L503.6030 ####[facility] [address] [facility] [place], [place], [phone] Hematocrit (Bld) [Volume fraction] 41.0 % Normal 40-54 [facility] Comment on above: Performed By: #### L 803.2200, L501.5200, L503.5510, L501.4700, L3400.0700, L3300.0100, L800.1280, L3100.1850, L501.9985, L300.3900, L503.6550, L501.5101, L3100.5450, L501.2300, L100.0100, L3300.0700, L501.6710, L500.4050, L503.6030 ####[facility] [address] [facility] [place], [place], [phone] Hemoglobin (Bld) [Mass/Vol] 13.9 g/dL Normal 13.0-16.5 [facility] Comment on above: Performed By: #### L 803.2200, L501.5200, L503.5510, L501.4700, L3400.0700, L3300.0100, L800.1280, L3100.1850, L501.9985, L300.3900, L503.6550, L501.5101, L3100.5450, L501.2300, L100.0100, L3300.0700, L501.6710, L500.4050, L503.6030 ####[facility] [address] [facility] [place], [place], [phone] IG% 0.300 Normal 0.0-0.9 [facility] Comment on above: Result Comment: IG% - Immature Granulocytes (promyelocytes, myelocytes andmetamyelocytes) > 1% indicates that a LEFT SHIFT is Present. Performed By: #### L 803.2200, L501.5200, L503.5510, L501.4700, L3400.0700, L3300.0100, L800.1280, L3100.1850, L501.9985, L300.3900, L503.6550, L501.5101, L3100.5450, L501.2300, L100.0100, L3300.0700, L501.6710, L500.4050, L503.6030 ####[facility] [address] [place], [address] Lymphocytes/100 WBC (Bld) 9.8 % Low 19-41 [facility] Comment on above: Performed By: #### L 803.2200, L501.5200, L503.5510, L501.4700, L3400.0700, L3300.0100, L800.1280, L3100.1850, L501.9985, L300.3900, L503.6550, L501.5101, L3100.5450, L501.2300, L100.0100, L3300.0700, L501.6710, L500.4050, L503.6030 ####[facility] [address] [place], [address] MCH (RBC) [Entitic mass] 34.0 pg High 27.0-32.0 [facility] Comment on above: Performed By: #### L 803.2200, L501.5200, L503.5510, L501.4700, L3400.0700, L3300.0100, L800.1280, L3100.1850, L501.9985, L300.3900, L503.6550, L501.5101, L3100.5450, L501.2300, L100.0100, L3300.0700, L501.6710, L500.4050, L503.6030 ####[facility] [address] [place], [address] MCHC (RBC) [Mass/Vol] 33.9 g/dL Normal 32-36 [facility] Comment on above: Performed By: #### L 803.2200, L501.5200, L503.5510, L501.4700, L3400.0700, L3300.0100, L800.1280, L3100.1850, L501.9985, L300.3900, L503.6550, L501.5101, L3100.5450, L501.2300, L100.0100, L3300.0700, L501.6710, L500.4050, L503.6030 ####[facility] [address] [place], [address] MCV (RBC) [Entitic vol] 100.2 fL High 80-94 [facility] Comment on above: Performed By: #### L 803.2200, L501.5200, L503.5510, L501.4700, L3400.0700, L3300.0100, L800.1280, L3100.1850, L501.9985, L300.3900, L503.6550, L501.5101, L3100.5450, L501.2300, L100.0100, L3300.0700, L501.6710, L500.4050, L503.6030 ####[facility] [address], [address] Monocytes/100 WBC (Bld) 13.9 % High 0-10 [facility] Comment on above: Performed By: #### L 803.2200, L501.5200, L503.5510, L501.4700, L3400.0700, L3300.0100, L800.1280, L3100.1850, L501.9985, L300.3900, L503.6550, L501.5101, L3100.5450, L501.2300, L100.0100, L3300.0700, L501.6710, L500.4050, L503.6030 ####[facility] [address] [place], [address] Neutrophils/100 WBC (Bld) 64.5 % Normal 47-70 [facility] Comment on above: Performed By: #### L 803.2200, L501.5200, L503.5510, L501.4700, L3400.0700, L3300.0100, L800.1280, L3100.1850, L501.9985, L300.3900, L503.6550, L501.5101, L3100.5450, L501.2300, L100.0100, L3300.0700, L501.6710, L500.4050, L503.6030 ####[facility] [address] [place], [address] Nucleated RBC (Bld) [#/Vol] 0 10*3/uL Normal 0-5 [facility] Comment on above: Performed By: #### L 803.2200, L501.5200, L503.5510, L501.4700, L3400.0700, L3300.0100, L800.1280, L3100.1850, L501.9985, L300.3900, L503.6550, L501.5101, L3100.5450, L501.2300, L100.0100, L3300.0700, L501.6710, L500.4050, L503.6030 ####[facility] [address] [place], [place], [phone] Platelet mean volume (Bld) [Entitic vol] 10.1 fL Normal 6.2-12.0 [facility] Comment on above: Performed By: #### L 803.2200, L501.5200, L503.5510, L501.4700, L3400.0700, L3300.0100, L800.1280, L3100.1850, L501.9985, L300.3900, L503.6550, L501.5101, L3100.5450, L501.2300, L100.0100, L3300.0700, L501.6710, L500.4050, L503.6030 ####[facility] [address] [place], [place], [address] Platelets (Bld) [#/Vol] 220 10*3/uL Normal 150-450 [facility] Comment on above: Performed By: #### L 803.2200, L501.5200, L503.5510, L501.4700, L3400.0700, L3300.0100, L800.1280, L3100.1850, L501.9985, L300.3900, L503.6550, L501.5101, L3100.5450, L501.2300, L100.0100, L3300.0700, L501.6710, L500.4050, L503.6030 ####[facility] [address] [place], [place], [phone] RBC (Bld) [#/Vol] 4.09 10*6/uL Low 4.6-6.2 [facility] Comment on above: Performed By: #### L 803.2200, L501.5200, L503.5510, L501.4700, L3400.0700, L3300.0100, L800.1280, L3100.1850, L501.9985, L300.3900, L503.6550, L501.5101, L3100.5450, L501.2300, L100.0100, L3300.0700, L501.6710, L500.4050, L503.6030 ####[facility] [address] [place], [place], [address] RDW SD 48.1 fl High 35.1-43.9 [facility] Comment on above: Performed By: #### L 803.2200, L501.5200, L503.5510, L501.4700, L3400.0700, L3300.0100, L800.1280, L3100.1850, L501.9985, L300.3900, L503.6550, L501.5101, L3100.5450, L501.2300, L100.0100, L3300.0700, L501.6710, L500.4050, L503.6030 ####[facility] [address] [place], [place], [phone] WBC (Bld) [#/Vol] 7.9 10*3/uL Normal 4.4-11.0 [facility] Comment on above: Performed By: #### L 803.2200, L501.5200, L503.5510, L501.4700, L3400.0700, L3300.0100, L800.1280, L3100.1850, L501.9985, L300.3900, L503.6550, L501.5101, L3100.5450, L501.2300, L100.0100, L3300.0700, L501.6710, L500.4050, L503.6030 ####[facility] [address] [place], [address] CRPon 09-12-2024 C-REACTIVE PROT 10.80 mg/L High 0.0-3.0 [facility] Comment on above: Result Comment: C-Re active Protein (CRP) provides useful information for thediagnosis, therapy and monitoring of inflammatory processesand associated diseases. For the evaluation of Relative Riskfor Cardiovascular Disease, a High Sensitivity CRP (HSCRP)should be ordered. Performed By: #### L 803.2200, L501.5200, L503.5510, L501.4700, L3400.0700, L3300.0100, L800.1280, L3100.1850, L501.9985, L300.3900, L503.6550, L501.5101, L3100.5450, L501.2300, L100.0100, L3300.0700, L501.6710, L500.4050, L503.6030 ####[facility] [address] [place], [place], [phone] Carbon dioxide measurementOr dered By: Shubham Blanco on 09-12-2024 CO2 [Moles/Vol] 24.0 mmol/L 21.0-32.0 [facility] Centromere B antibody assayO rdered By: Shubham Blanco on 09-12-2024 Centromere B Antibody TNP [facility] Comment on above: Test not performed CeruloplasminOrdered By: Gennaro Blanco on 09-12-2024 Ceruloplasmin 25.6 mg/dL 16.0-31.0 [facility] Chloride measurementOrdered By: Shubham Blanco on 09-12-2024 Chloride [Moles/Vol] 107 mmol/L 98-107 [facility] Chromatin antibody assayOrde red By: Shubham Blanco on 09-12-20[address] [facility] Comment on above: Test not performed Comprehensive Metabolic Prof ilon 09-12-2024 Albumin [Mass/Vol] 3.3 g/dL Normal 3.2-5.0 [facility] Comment on above: Performed By: #### L 803.2200, L501.5200, L503.5510, L501.4700, L3400.0700, L3300.0100, L800.1280, L3100.1850, L501.9985, L300.3900, L503.6550, L501.5101, L3100.5450, L501.2300, L100.0100, L3300.0700, L501.6710, L500.4050, L503.6030 ####[facility] [address] [place], [place], [phone] Albumin/Globulin [Mass ratio] 0.8 {ratio} Low 0.9-2.4 [facility] Comment on above: Performed By: #### L 803.2200, L501.5200, L503.5510, L501.4700, L3400.0700, L3300.0100, L800.1280, L3100.1850, L501.9985, L300.3900, L503.6550, L501.5101, L3100.5450, L501.2300, L100.0100, L3300.0700, L501.6710, L500.4050, L503.6030 ####[facility] [address] [place], [place], [phone] ALK P 134 U/L High 45-117 [facility] Comment on above: Performed By: #### L 803.2200, L501.5200, L503.5510, L501.4700, L3400.0700, L3300.0100, L800.1280, L3100.1850, L501.9985, L300.3900, L503.6550, L501.5101, L3100.5450, L501.2300, L100.0100, L3300.0700, L501.6710, L500.4050, L503.6030 ####[facility] [address] [place], [place], [phone] ALT [Catalytic activity/Vol] 36 U/L Normal 16-61 [facility] Comment on above: Performed By: #### L 803.2200, L501.5200, L503.5510, L501.4700, L3400.0700, L3300.0100, L800.1280, L3100.1850, L501.9985, L300.3900, L503.6550, L501.5101, L3100.5450, L501.2300, L100.0100, L3300.0700, L501.6710, L500.4050, L503.6030 ####[facility] [address] [place], [place], [phone] AST [Catalytic activity/Vol] 38 U/L High 15-37 [facility] Comment on above: Performed By: #### L 803.2200, L501.5200, L503.5510, L501.4700, L3400.0700, L3300.0100, L800.1280, L3100.1850, L501.9985, L300.3900, L503.6550, L501.5101, L3100.5450, L501.2300, L100.0100, L3300.0700, L501.6710, L500.4050, L503.6030 ####[facility] [address] [place], [place], [phone] Bilirubin [Mass/Vol] 0.70 mg/dL Normal 0.20-1.00 [facility] Comment on above: Result Comment: For patients on eltrombopag therapy, use of Dimension [place] TBIL is not recommended. Performed By: #### L 803.2200, L501.5200, L503.5510, L501.4700, L3400.0700, L3300.0100, L800.1280, L3100.1850, L501.9985, L300.3900, L503.6550, L501.5101, L3100.5450, L501.2300, L100.0100, L3300.0700, L501.6710, L500.4050, L503.6030 ####[facility] [address] [place], [place], [phone](805) BUN/CRE 15.3 RATIO Normal 10-20 [facility] Comment on above: Performed By: #### L 803.2200, L501.5200, L503.5510, L501.4700, L3400.0700, L3300.0100, L800.1280, L3100.1850, L501.9985, L300.3900, L503.6550, L501.5101, L3100.5450, L501.2300, L100.0100, L3300.0700, L501.6710, L500.4050, L503.6030 ####[facility] [address] [place], [place], [phone]71) CA,Total 9.6 mg/dL Normal 8.5-10.1 [facility] Comment on above: Performed By: #### L 803.2200, L501.5200, L503.5510, L501.4700, L3400.0700, L3300.0100, L800.1280, L3100.1850, L501.9985, L300.3900, L503.6550, L501.5101, L3100.5450, L501.2300, L100.0100, L3300.0700, L501.6710, L500.4050, L503.6030 ####[facility] [address] [place], [place], [phone] Chloride [Moles/Vol] 107 mmol/L Normal 98-107 [facility] Comment on above: Performed By: #### L 803.2200, L501.5200, L503.5510, L501.4700, L3400.0700, L3300.0100, L800.1280, L3100.1850, L501.9985, L300.3900, L503.6550, L501.5101, L3100.5450, L501.2300, L100.0100, L3300.0700, L501.6710, L500.4050, L503.6030 ####[facility] [address] [place], [place], [phone] CO2 [Moles/Vol] 24.0 mmol/L Normal 21.0-32.0 [facility] Comment on above: Performed By: #### L 803.2200, L501.5200, L503.5510, L501.4700, L3400.0700, L3300.0100, L800.1280, L3100.1850, L501.9985, L300.3900, L503.6550, L501.5101, L3100.5450, L501.2300, L100.0100, L3300.0700, L501.6710, L500.4050, L503.6030 ####[facility] [address] [place], [place], [phone] Creatinine [Mass/Vol] 0.72 mg/dL Normal 0.70-1.30 [facility] Comment on above: Result Comment: The validity of the calculated GFR GFRAA in patients over70 years has not been determined. Clinical correlation isessential. Performed By: #### L 803.2200, L501.5200, L503.5510, L501.4700, L3400.0700, L3300.0100, L800.1280, L3100.1850, L501.9985, L300.3900, L503.6550, L501.5101, L3100.5450, L501.2300, L100.0100, L3300.0700, L501.6710, L500.4050, L503.6030 ####[facility] [address] [place], [place], [phone] EST GFR - AA 137 mL/min Normal >60 [facility] Comment on above: Result Comment: Afri can [place] GFR Calc Performed By: #### L 803.2200, L501.5200, L503.5510, L501.4700, L3400.0700, L3300.0100, L800.1280, L3100.1850, L501.9985, L300.3900, L503.6550, L501.5101, L3100.5450, L501.2300, L100.0100, L3300.0700, L501.6710, L500.4050, L503.6030 ####[facility] [address] [place], [place], [phone] GAP 6 Normal 5-15 [facility] Comment on above: Performed By: #### L 803.2200, L501.5200, L503.5510, L501.4700, L3400.0700, L3300.0100, L800.1280, L3100.1850, L501.9985, L300.3900, L503.6550, L501.5101, L3100.5450, L501.2300, L100.0100, L3300.0700, L501.6710, L500.4050, L503.6030 ####[facility] [address] [place], [address] GFR/1.73 sq M.predicted among non-blacks MDRD (S/P/Bld) [Vol rate/Area] 113 mL/min/{1.73_m2} Normal >60 [facility] Comment on above: Result Comment: Non- GFR Calc Performed By: #### L 803.2200, L501.5200, L503.5510, L501.4700, L3400.0700, L3300.0100, L800.1280, L3100.1850, L501.9985, L300.3900, L503.6550, L501.5101, L3100.5450, L501.2300, L100.0100, L3300.0700, L501.6710, L500.4050, L503.6030 ####[facility] [address] [place], [address] Globulin (S) [Mass/Vol] 4.2 g/dL Normal 2.2-4.2 [facility] Comment on above: Performed By: #### L 803.2200, L501.5200, L503.5510, L501.4700, L3400.0700, L3300.0100, L800.1280, L3100.1850, L501.9985, L300.3900, L503.6550, L501.5101, L3100.5450, L501.2300, L100.0100, L3300.0700, L501.6710, L500.4050, L503.6030 ####[facility] [address] [place], [address] Glucose [Mass/Vol] 91 mg/dL Normal 74-106 [facility] Comment on above: Performed By: #### L 803.2200, L501.5200, L503.5510, L501.4700, L3400.0700, L3300.0100, L800.1280, L3100.1850, L501.9985, L300.3900, L503.6550, L501.5101, L3100.5450, L501.2300, L100.0100, L3300.0700, L501.6710, L500.4050, L503.6030 ####[facility] [address] [place], [address] Potassium [Moles/Vol] 4.4 mmol/L Normal 3.5-5.1 [facility] Comment on above: Performed By: #### L 803.2200, L501.5200, L503.5510, L501.4700, L3400.0700, L3300.0100, L800.1280, L3100.1850, L501.9985, L300.3900, L503.6550, L501.5101, L3100.5450, L501.2300, L100.0100, L3300.0700, L501.6710, L500.4050, L503.6030 ####[facility] [address] [place], [place], [phone](268) Sodium [Moles/Vol] 137 mmol/L Normal 136-145 [facility] Comment on above: Performed By: #### L 803.2200, L501.5200, L503.5510, L501.4700, L3400.0700, L3300.0100, L800.1280, L3100.1850, L501.9985, L300.3900, L503.6550, L501.5101, L3100.5450, L501.2300, L100.0100, L3300.0700, L501.6710, L500.4050, L503.6030 ####[facility] [address] [place], [place], [phone](285) T PROT 7.5 g/dL Normal 6.4-8.2 [facility] Comment on above: Performed By: #### L 803.2200, L501.5200, L503.5510, L501.4700, L3400.0700, L3300.0100, L800.1280, L3100.1850, L501.9985, L300.3900, L503.6550, L501.5101, L3100.5450, L501.2300, L100.0100, L3300.0700, L501.6710, L500.4050, L503.6030 ####[facility] [address] [facility] [place], [address] Urea nitrogen [Mass/Vol] 11 mg/dL Normal 7-18 [facility] Comment on above: Performed By: #### L 803.2200, L501.5200, L503.5510, L501.4700, L3400.0700, L3300.0100, L800.1280, L3100.1850, L501.9985, L300.3900, L503.6550, L501.5101, L3100.5450, L501.2300, L100.0100, L3300.0700, L501.6710, L500.4050, L503.6030 ####[facility] [address] [facility] [place], [place], [id number] Copper, serumOrdered By: Gennaro Blanco on 09-12-2024 Serum Copper 119 ug/dL 69-132 [facility] Comment on above: Detection Limit = 5 DNA double strand Ab Qn (S)O rdered By: Shubham Blanco on 09-12-2024 Anti-Double Strand DNA Antibody TNP [facility] Comment on above: Test not performed Eosinophil percentageOrdered By: Shubham Blanco on 09-12-2024 Eosinophils/100 WBC (Bld) 10.9 % High 0-5 [facility] Erythrocyte distribution wid th ratioOrdered By: Shubham Blanco on 09-12-2024 Erythrocyte distribution width (RBC) [Ratio] 13.2 % 11.6-14.6 [facility] Erythrocyte distribution wid th standard deviationOrdered By: Shubham Blanco on 09-12-2024 Erythrocyte distribution width (RBC) [Entitic vol] 48.1 fL High 35.1-43.9 [facility] Erythrocyte distribution width (RBC) [Ratio] 48.1 fl High 35.1-43.9 [facility] Estimated glomerular filtrat ion rate (GFR) AmericanOrdered By: Shubham Blanco on 09-12-2024 Estimated GFR (MDRD) Amer 137 mL/min >60 [facility] Comment on above: GFR Calc Ferritinon 09-12-2024 Ferritin [Mass/Vol] 106 ng/mL Normal 26-388 [facility] Comment on above: Performed By: #### L 803.2200, L501.5200, L503.5510, L501.4700, L3400.0700, L3300.0100, L800.1280, L3100.1850, L501.9985, L300.3900, L503.6550, L501.5101, L3100.5450, L501.2300, L100.0100, L3300.0700, L501.6710, L500.4050, L503.6030 ####[facility] [address] [place], [place], [phone] Ferritin measurementOrdered By: Shubham Blanco on 09-12-2024 Ferritin [Mass/Vol] 106 ng/mL 26-388 [facility] Gamma glutamyl transferase ( GGT) measurementOrdered By: Shubham Blanco on 09-12-2024 Amylase [Catalytic activity/Vol] 150 U/L High 0-65 [facility] Glomerular filtration rate ( GFR) estimationOrdered By: Shubham Blanco on 09-12-2024 Estimated GFR (MDRD) Non-Af Amer 113 mL/min >60 [facility] Comment on above: Non- GFR Calc GFR/1.73 sq M.predicted among non-blacks MDRD (S/P/Bld) [Vol rate/Area] 113 mL/min/{1.73_m2} >60 [facility] Comment on above: Non- GFR Calc Glucose measurementOrdered B y: Shubham Blanco on 09-12-2024 Glucose [Mass/Vol] 91 mg/dL 74-106 [facility] HBV surface IgG Ql (S)Ordere d By: Shubham Blanco on 09-12-2024 Hepatitis B Surface Antibody Non-Reactive [facility] Comment on above: Non Reactive: Incons istent with immunity less than <10 mIU/mL Reactive: Consistent with immunity greater than or equal to 10 mIU/mL HaptoglobinOrdered By: Maritza Blanco on 09-12-2024 Haptoglobin 286 mg/dL 34-355 [facility] Comment on above: Performed at: [employer] [address] [id number] Director: José Miguel Alba PhD, Phone: [phone] at: [employer] [id number] Director: Zafar Browne MD, Phone: [phone] Hematocrit Auto (Bld) [Volum e fraction]Ordered By: Shubham Blanco on 09-12-2024 Hematocrit (Bld) [Volume fraction] 41.0 % 40-54 [facility] Hemoglobin A1con 09-12-2024 HbA1c (Bld) [Mass fraction] 5.6 % Normal 3.8-5.6 [facility] Comment on above: Result Comment: Norm al < 5.7 % Prediabetic 5.7 - 6.4 % Diabetic >or= 6.5 % Please note range changes. Performed By: #### L 803.2200, L501.5200, L503.5510, L501.4700, L3400.0700, L3300.0100, L800.1280, L3100.1850, L501.9985, L300.3900, L503.6550, L501.5101, L3100.5450, L501.2300, L100.0100, L3300.0700, L501.6710, L500.4050, L503.6030 ####[facility] [address] [place], [place], [id number] Hemoglobin A1c percentageOrd ered By: Suhbham Blanco on 09-12-2024 HbA1c (Bld) [Mass fraction] 5.6 % 3.8-5.6 [facility] Comment on above: Normal < 5.7 % Predi abetic 5.7 - 6.4 % Diabetic >or= 6.5 % Please note range changes. Hemoglobin measurementOrdere d By: Shubham Blanco on 09-12-2024 Hemoglobin (Bld) [Mass/Vol] 13.9 g/dL 13.0-16.5 [facility] Hepatitis B Surface Antibody on 09-12-2024 HEP B Surf Ab Non-Reactive Normal [facility] Comment on above: Result Comment: Non Reactive: Inconsistent with immunity less than <10 mIU/mL Reactive: Consistent with immunity greater than or equal to 10 mIU/mL Performed By: #### L 3890.6200 ####[facility] [address] [place], [address] Immature granulocytes/100 WB C Auto (Bld)Ordered By: Shubham Blanco on 09-12-2024 Immature granulocytes/100 WBC (Bld) 0.300 % 0.0-0.9 [facility] Comment on above: IG% - Immature Granu locytes (promyelocytes, myelocytes and metamyelocytes) > 1% indicates that a LEFT SHIFT is Present. International normalized rat io (INR) calculationOrdered By: Shubham Blanco on 09-12-2024 INR Coag (Bld) [Relative time] 1.0 {INR} [facility] Iron (Unsp spec) [Mass/Mass] Ordered By: Shubham Blanco on 09-12-2024 Iron [Mass/Vol] 77 ug/dL 65-175 [facility] Iron measurement (mass/mass) Ordered By: Shubham Blanco on 09-12-2024 Iron (Unsp spec) [Mass/Mass] 77 ug/dL 65-175 [facility] Iron saturation [Mass fracti on]Ordered By: Shubham Blanco on 09-12-2024 Iron Saturation 27.7 % 15.0-55.0 [facility] Iron+Iron Binding Capacityon 09-12-2024 Iron [Mass/Vol] 77 ug/dL Normal 65-175 [facility] Comment on above: Performed By: #### L 803.2200, L501.5200, L503.5510, L501.4700, L3400.0700, L3300.0100, L800.1280, L3100.1850, L501.9985, L300.3900, L503.6550, L501.5101, L3100.5450, L501.2300, L100.0100, L3300.0700, L501.6710, L500.4050, L503.6030 ####[facility] [address] [place], [place], [id number] IRON SATURATION 27.7 Normal 15.0-55.0 [facility] Comment on above: Performed By: #### L 803.2200, L501.5200, L503.5510, L501.4700, L3400.0700, L3300.0100, L800.1280, L3100.1850, L501.9985, L300.3900, L503.6550, L501.5101, L3100.5450, L501.2300, L100.0100, L3300.0700, L501.6710, L500.4050, L503.6030 ####[facility] [address] [place], [place], [id number] TIBC 278 ug/dL Normal 250-450 [facility] Comment on above: Performed By: #### L 803.2200, L501.5200, L503.5510, L501.4700, L3400.0700, L3300.0100, L800.1280, L3100.1850, L501.9985, L300.3900, L503.6550, L501.5101, L3100.5450, L501.2300, L100.0100, L3300.0700, L501.6710, L500.4050, L503.6030 ####[facility] [address] [place], [place], [id number] Francia-1 antibody assayOrdered B y: Shubham Blanco on 09-12-2024 FRACNIA-[address] [facility] Comment on above: Test not performed Laboratory - Chemistry and C hemistry - challengeOrdered By: Shubham Blanco on 09-12-2024 AST [Catalytic activity/Vol] 38 U/L High 15-37 [facility] Lymphocytes Auto (Unsp spec) [#/Vol]Ordered By: Shubham Blanco on 09-12-2024 Lymphocytes (Bld) [#/Vol] 0.77 10*3/uL Low 0.83-4.51 [facility] Lymphocytes/100 WBC Auto (Un sp spec)Ordered By: Shubham Blanco on 09-12-2024 Lymphocytes/100 WBC (Bld) 9.8 % Low 19-41 [facility] MCV (mean corpuscular volume ) determinationOrdered By: Shubham Blanco on 09-12-2024 MCV (RBC) [Entitic vol] 100.2 fL High 80-94 [facility] Magnesiumon 09-12-2024 Magnesium [Mass/Vol] 2.0 mg/dL Normal 1.6-2.6 [facility] Comment on above: Performed By: #### L 803.2200, L501.5200, L503.5510, L501.4700, L3400.0700, L3300.0100, L800.1280, L3100.1850, L501.9985, L300.3900, L503.6550, L501.5101, L3100.5450, L501.2300, L100.0100, L3300.0700, L501.6710, L500.4050, L503.6030 ####[facility] [address] [place], [place], [id number] Magnesium measurementOrdered By: Shubham Blanco on 09-12-2024 Magnesium [Mass/Vol] 2.0 mg/dL 1.6-2.6 [facility] Mean corpuscular hemoglobin (MCH) determinationOrdered By: Shubham Blanco on 09-12-2024 MCH (RBC) [Entitic mass] 34.0 pg High 27.0-32.0 [facility] Mean corpuscular hemoglobin concentration (MCHC) determinationOrdered By: Shubham Blanco on 09-12-2024 MCHC (RBC) [Mass/Vol] 33.9 g/dL 32-36 [facility] Mean platelet volume determi nationOrdered By: Shubham Blanco on 09-12-2024 Platelet mean volume (Bld) [Entitic vol] 10.1 fL 6.2-12.0 [facility] Mitochondria Ab Ql (S)Ordere d By: Shubham Blanco on 09-12-2024 Anti-Mitochondrial Antibody <20.0 Units 0.0-20.0 [facility] Comment on above: Negative 0.0 - 20.0 Equivocal 20.1 - 24.9 Positive >24.9Mitochondrial (M2) Antibodies are found in 90-96% ofpatients with primary biliary cirrhosis. Monocyte percentageOrdered B y: Shubham Blanco on 09-12-2024 Monocytes/100 WBC (Bld) 13.9 % High 0-10 [facility] Neutrophil percentageOrdered By: Shubham Blanco on 09-12-2024 Neutrophils/100 WBC (Bld) 64.5 % 47-70 [facility] Nucleated red blood cell per centageOrdered By: Shubham Blanco on 09-12-2024 Nucleated RBC/100 WBC (Bld) [Ratio] 0 % 0-5 [facility] Phosphoruson 09-12-2024 Phosphate [Mass/Vol] 3.4 mg/dL Normal 2.5-4.9 [facility] Comment on above: Performed By: #### L 803.2200, L501.5200, L503.5510, L501.4700, L3400.0700, L3300.0100, L800.1280, L3100.1850, L501.9985, L300.3900, L503.6550, L501.5101, L3100.5450, L501.2300, L100.0100, L3300.0700, L501.6710, L500.4050, L503.6030 ####[facility] [address] [place], [place], [id number] Phosphorus measurementOrdere d By: Shubham Blanco on 09-12-2024 Phosphorus Level 3.4 mg/dL 2.5-4.9 [facility] Platelet countOrdered By: Tessa Blanco on 09-12-2024 Platelets (Bld) [#/Vol] 220 10*3/uL 150-450 [facility] Potassium measurementOrdered By: Shubham Blanco on 09-12-2024 Potassium [Moles/Vol] 4.4 mmol/L 3.5-5.1 [facility] Prothrombin Time w/INRon INR Coag (PPP) [Relative time] 1.0 {INR} Normal [facility] Comment on above: Performed By: #### L 803.2200, L501.5200, L503.5510, L501.4700, L3400.0700, L3300.0100, L800.1280, L3100.1850, L501.9985, L300.3900, L503.6550, L501.5101, L3100.5450, L501.2300, L100.0100, L3300.0700, L501.6710, L500.4050, L503.6030 ####[facility] [address] [place], [address] PT Coag (PPP) [Time] 13.3 s Normal 11.7-14.9 [facility] Comment on above: Performed By: #### L 803.2200, L501.5200, L503.5510, L501.4700, L3400.0700, L3300.0100, L800.1280, L3100.1850, L501.9985, L300.3900, L503.6550, L501.5101, L3100.5450, L501.2300, L100.0100, L3300.0700, L501.6710, L500.4050, L503.6030 ####[facility] [address] [place], [place], [id number] Prothrombin timeOrdered By: Shubham Blanco on 09-12-2024 PT Coag (PPP) [Time] 13.3 s 11.7-14.9 [facility] RBC Auto (Bld) [#/Vol]Ordere d By: Shubham Blanco on 09-12-2024 RBC (Bld) [#/Vol] 4.09 10*6/uL Low 4.6-6.2 [facility] ATOMIC PROCESS ENGINEER abOrdered By: Shubham Goldman and on 09-12-2024 ATOMIC PROCESS ENGINEER Antibody [facility] Comment on above: Test not performed SCL-70 extractable nuclear A b Qn (S)Ordered By: Shubham Blanco on 09-12-2024 Scl-70 (Scleroderma) Antibody [facility] Comment on above: Test not performed SS-A IgG antibody assayOrder ed By: Shubham Blanco on 09-12-2024 SS-A/Ro IgG Antibody [facility] Comment on above: Test not performed SS-B IgG antibody assayOrder ed By: Shubham Blanco on 09-12-2024 SS-B/La IgG Antibody [facility] Comment on above: Test not performed Serum DNA double strand anti body assay (units/volume)Ordered By: Shubham Blanco on 09-12-2024 DNA double strand Ab Qn (S) [facility] Comment on above: Test not performed Serum Scl-70 antibody assay (units/volume)Ordered By: Shubham Blanco on 09-12-2024 SCL-70 extractable nuclear Ab Qn (S) [facility] Comment on above: Test not performed Serum anion gap measurementO rdered By: Shubham Blanco on 09-12-2024 Anion gap [Moles/Vol] 6 mmol/L 5-15 [facility] Serum globulin measurementOr dered By: Shubham Blanco on 09-12-2024 Globulin (S) [Mass/Vol] 4.2 g/dL 2.2-4.2 [facility] Serum hepatitis B virus surf jose antibody IgG detectionOrdered By: Shubham Blanco on 09-12-2024 HBV surface IgG Ql (S) Non-Reactive [facility] Comment on above: Non Reactive: Incons istent with immunity less than <10 mIU/mL Reactive: Consistent with immunity greater than or equal to 10 mIU/mL Serum mitochondria antibody detectionOrdered By: Shubham Blanco on 09-12-2024 Mitochondria Ab Ql (S) <20.0 Units 0.0-20.0 [facility] Comment on above: Negative 0.0 - 20.0 Equivocal 20.1 - 24.9 Positive >24.9Mitochondrial (M2) Antibodies are found in 90-96% ofpatients with primary biliary cirrhosis. Serum or plasma actin IgG an tibody assay (units/volume)Ordered By: Shubham Blanco on 09-12-2024 Actin IgG Qn 10 Units 0-19 [facility] Comment on above: Negative 0 - 19 Weak positive 20 - 30 Moderate to strong positive >30 Actin Antibodies are found in 52-85% of patients with autoimmune hepatitis or chronic active hepatitis and in 22% of patients with primary biliary cirrhosis. Serum or plasma alanine guevara otransferase (ALT) measurementOrdered By: Shubham Blanco on 09-12-2024 ALT [Catalytic activity/Vol] 36 U/L 16-61 [facility] Serum or plasma albumin reid urement (mass/volume)Ordered By: Shubham Blanco on 09-12-2024 Albumin [Mass/Vol] 3.3 g/dL 3.2-5.0 [facility] Serum or plasma alkaline adelfo sphatase measurementOrdered By: Shubham Blanco on 09-12-2024 ALP [Catalytic activity/Vol] 134 U/L High 45-117 [facility] Serum or plasma calcium reid urement (mass/volume)Ordered By: Shubham Blanco on 09-12-2024 Calcium [Mass/Vol] 9.6 mg/dL 8.5-10.1 [facility] Serum or plasma creatinine m easurement (mass/volume)Ordered By: Shubham Blanco on 09-12-2024 Creatinine [Mass/Vol] 0.72 mg/dL 0.70-1.30 [facility] Comment on above: The validity of the calculated GFR & GFRAA in patients over 70 years has not been determined. Clinical correlation is essential. Serum or plasma iron saturat ion measurement (mass fraction)Ordered By: Shubham Blanco on 09-12-2024 Iron saturation [Mass fraction] 27.7 % 15.0-55.0 [facility] Serum or plasma urea nitroge n measurement (mass/volume)Ordered By: Shubham Blanco on 09-12-2024 Urea nitrogen [Mass/Vol] 11 mg/dL 7-18 [facility] Schultz antibody assayOrdered By: Shubham Blanco on 09-12-[address] [facility] Comment on above: Test not performed Sodium levelOrdered By: Nilda Blanco on 09-12-2024 Sodium [Moles/Vol] 137 mmol/L 136-145 [facility] TIBCOrdered By: Shubham granados on 09-12-2024 Total Iron Binding Capacity 278 ug/dL 250-450 [facility] Total proteinOrdered By: Gennaro Blanco on 09-12-2024 Protein [Mass/Vol] 7.5 g/dL 6.4-8.2 [facility] Venous blood ammonia measure mentOrdered By: Shubham Blanco on 09-12-2024 Ammonia (P) [Moles/Vol] 30.0 umol/L 11-32 [facility] White blood cell (WBC) count Ordered By: Shubham Blanco on 09-12-2024 WBC (Bld) [#/Vol] 7.9 10*3/uL 4.4-11.[address] [facility] [address] Abd/Pelvis W/WO Contrasto n 09-06-2024 CT Abd/Pelvis W/WO Contrast Normal 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 Normal [facility] KAPPA/NEUMANN,FREE,SERon 2024 Immunoglobulin light chains.kappa.free (S) [Mass/Vol] 38.8 mg/L High 3.3-19.4 [facility] Comment on above: Order Comment: Speci men Type: BLOOD SPECIMENOrdering Facility: [facility] Address: [address] [place] [address] Result Comment: Rare ly, increased serum free light chains levels may not be detected or accurately quantified due to prozone phenomenon or in high viscosity samples using this immunoturbidimetric assay. Correlation with other laboratory results and clinical findings is recommended. The Diaz Free Light Chain was performed using the Binding Site Optilite immunoturbidimetric method. Result obtained with different assay methods or kits cannot be used interchangeably. Performed By: #### K LFRS ####[facility] LABCLIA [id number] [place] [address] [place] Immunoglobulin light chains.kappa/Immunogl obulin light chains.lambda (S) [Mass ratio] 1.24 Normal 0.26-1.65 [facility] Comment on above: Order Comment: Kristineil peck Type: BLOOD SPECIMENOrdering Facility: [facility] Address: [address] [place] [address] Performed By: #### K LFRS ####[facility] LABCLIA [id number] [place] [address] [place] Immunoglobulin light chains.lambda.free [Mass/Vol] 31.4 mg/L High 5.7-26.3 [facility] Comment on above: Order Comment: Medina peck Type: BLOOD SPECIMENOrdering Facility: [facility] Address: [address] [place] [address] Result Comment: Rare ly, increased serum free [...] cannot be used interchangeably. Performed By: #### K LFRS ####[facility] LABCLIA [id number] [place] [address] [place] PROTEIN ELECTROPHORESIS SERU M (P)on 08-30-2024 Albumin [Mass/Vol] 4.18 g/dL Normal 3.43-5.41 [facility] Comment on above: Order Comment: Speci men Type: BLOOD SPECIMEN Ordering Facility: [facility] Address: [address] [place] [address] Performed By: #### 4 498-2 #### [facility] CLIA [id number] [address] [place] [address] [place] Alpha 1 globulin Elph [Mass/Vol] 0.38 g/dL Normal 0.18-0.43 [facility] Comment on above: Order Comment: Speci men Type: BLOOD SPECIMEN Ordering Facility: [facility] Address: [address] [place] [address] Performed By: #### 4 498-2 #### [facility] CLIA [id number] [address] [place] [address] [place] Alpha 2 globulin Elph [Mass/Vol] 0.87 g/dL Normal 0.42-0.98 [facility] Comment on above: Order Comment: Speci men Type: BLOOD SPECIMEN Ordering Facility: [facility] Address: [address] [place] [address] Performed By: #### 4 498-2 #### [facility] CLIA [id number] [address] [place] [address] [place] Beta globulin Elph [Mass/Vol] 1.05 g/dL Normal 0.61-1.17 [facility] Comment on above: Order Comment: Speci men Type: BLOOD SPECIMEN Ordering Facility: [facility] Address: [address] [place] [address] Performed By: #### 4 498-2 #### [facility] CLIA [id number] [address] [place] [address] [place] Gamma globulin Elph [Mass/Vol] 1.12 g/dL Normal 0.53-1.51 [facility] Comment on above: Order Comment: Medina peck Type: BLOOD SPECIMEN Ordering Facility: [facility] Address: [address] [place] [address] Performed By: #### 4 498-2 #### [facility] CLIA [id number] [address] [place] [address] [place] INTERPRETATION COMMENT FOR PROTEIN ELECTROPHORESIS The atypical region is relatively poorly defined and may represent an unusual presentation of polyclonal immunoglobulins, but cannot rule out the presence of a low level M protein. If clinically indicated, monoclonal protein analysis and serum free light chain analysis are suggested to evaluate further for monoclonal gammopathy. Normal [facility] Comment on above: Order Comment: Medina peck Type: BLOOD SPECIMEN Ordering Facility: [facility] Address: [address] [place] [address] Performed By: #### 4 498-2 #### [facility] CLIA [id number] [address] [place] [address] [place] M-PROTEIN LOCATION Normal [facility] Comment on above: Order Comment: Medina peck Type: BLOOD SPECIMEN Ordering Facility: [facility] Address: [address] [place] [address] Result Comment: Not Applicable. Performed By: #### 4 498-2 #### [facility] CLIA [id number] [address] [place] [address] [place] Protein Fractions [Interp] An atypical region of restricted mobility is identified on protein electrophoresis. Abnormal No definitive M protein is identified on protein electrophore sis. [facility] Comment on above: Order Comment: Medina peck Type: BLOOD SPECIMEN Ordering Facility: [facility] Address: [address] [place] [address] Performed By: #### 4 498-2 #### [facility] CLIA [id number] [address] [place] [id number] [address] [place] Protein.monoclonal Elph [Mass/Vol] 0.00 g/dL Normal <=0.00 [facility] Comment on above: Order Comment: Speci men Type: BLOOD SPECIMEN Ordering Facility: [facility] Address: [address] [place] [address] Performed By: #### 4 498-2 #### [facility] CLIA [id number] [address] [place] [address] [place] SPE STAFF REVIEW Reviewed by Lizbeth navarrete M.D. Normal [facility] Comment on above: Order Comment: Speci men Type: BLOOD SPECIMEN Ordering Facility: [facility] Address: [address] [place] [address] Performed By: #### 4 498-2 #### [facility] CLIA [id number] [address] [place] [address] [place] Prot SerPl-mCncon 08-30-2024 Protein [Mass/Vol] 7.6 g/dL Normal 6.3-8.0 [facility] Comment on above: Order Comment: Speci men Type: URINE SPECIMEN Ordering Facility: [facility] Address: [address] [place] [address] Performed By: #### U 24MPA #### [facility] CLIA [id number] [address] [place] [address] [place] C4 COMPLEMENTon 08-20-2024 Complement C4 [Mass/Vol] 32 mg/dL 13 - 46 mg/dL [facility] Complement C4 [Mass/Vol]on 0 08-20-2024 Interpretation and review of laboratory results Normal [facility] C4 SerPl-mCncon 08-19-2024 Complement C4 [Mass/Vol] 32 mg/dL Normal 13-46 [facility] Comment on above: Order Comment: Speci men Type: BLOOD SPECIMEN Ordering Facility: [facility] Address: [address] [place] [address] Performed By: #### 4 498-2 #### [facility] CLIA [id number] [address] [id number] [place] [facility] CNOVon 08-19-2024 CNOV Office Visit (ALLMED ) -- NAZARIO HUTTON ([id number]) 1950 M Date Time Provider Department 08/19/24 [...] due to lower GI bleed from diverticulosis) 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 FOR (more content not included)... 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 Normal [facility] Emergency Department Summary on 07-18-2024 Emergency Department [address] Normal 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 Performed By: #### 1 0886-0, 69631-4, LIPNF, 3084-1 #### [facility] CLIA [id number] [address] [place] [address] [place] HBV core IgM Ser Qlon 2023 HBV core IgM Ql (S) Negative Normal Negative [facility] Comment on above: Order Comment: Speci men Type: BLOOD SPECIMEN Ordering Facility: [facility] Address: [address] [place] [address] Result Comment: No e vidence of recent infection with Hepatitis B virus. Should recent infection be suspected, repeat testing may be considered 3-4 weeks after this draw. Performed By: #### 4 498-2 #### [facility] CLIA [id number] [address] [place] [address] [place] HBV surface Ag Ser Qlon 04-24 HBV surface Ag Ql (S) Negative Normal Negative [facility] Comment on above: Order Comment: Speci men Type: BLOOD SPECIMEN Ordering Facility: [facility] Address: [address] [place] [address] Performed By: #### 4 498-2 #### [facility] CLIA [id number] [address] [place] [address] [place] HCV RNA DEMARIO+probe Qnon 05-16 HCV RNA DEMARIO+probe Ql Not detected Normal Not detected [facility] Comment on above: Order Comment: Speci men Type: URINE SPECIMEN Ordering Facility: [facility] Address: [address] [place], [place] [address] [address] Performed By: #### U 24MPA #### [facility] CLIA [id number] [address] [place] [address] [place] ABD Limited w/ Elastographyo n 05-14-2024 ABD Limited w/ Elastography Normal [facility] CNPNon 05-14-2024 [facility] NAZARIO HUTTON ([id number]) 1950 M Date Time Provider Department 05/14/24 SUZANNA DAWSON [facility] During your visit today, we recorded the following information about you: Lupillo Moura LPN 05/14/2024 2:50 PM Signed Received results of pt's US ordered by Suzanna done at [facility]. 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 We need to get him in with a liver specialist. Does he wish to stay in [place] [facility] with [facility] at [facility]. Or does he prefer to stay with [facility]? I also need to do a hepatitis [...] contact office for phone numbers. Dr Chacon [phone] Dr Barron [phone]. Please have pt contact them to schedule if he does not hear from their offices. All info has been faxed to Dr Chacon and Dr Barron as per below. SUSHIL Crawley Sherill A, LPN 05/16/2024 11:25 AM Signed Also sent pt a [facility] with phone numbers. SUSHIL Crawley Sherill A, [...] [K74.00] Order(s):HEP ACUTE PANEL/RNA [SQHACRNA] Order #: [id number] FUTURE CONSULT TO GASTROENTEROLOGY [3690] Order #: [id number]: 1 FUTURE Prescriptions as of 05/20/2024 - [...] (PTH) [R79.89] 08/01/2018more content not included)... Normal [facility] CNPNon 05-13-2024 [facility] Telephone ([facility]) -- NAZARIO HUTTON ([id number]) 1950 M Date Time Provider Department 05/13/24 [facility] During your visit today, we recorded the following information about you: Kirsten Marc RN 05/13/2024 3:17 PM Signed Patient calling with an order related question. Information provided. 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 [facility] ([facility]) -- NAZARIO HUTTON ([id number]) 1950 M Date Time Provider Department 05/01/24 VALERIANO BEASLEY [facility] During your visit today, we recorded the following information about you: Alexia Waggoner LPN 05/01/2024 8:34 AM Signed Lisa with Dr. Vargas's office (cardiology) called for recent lipid lab work. Pt has an apt. Pt was identified with name and date of . FAX: [phone]. Done. 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 25(OH)D3 SerPl-mCncon 2023 25-hydroxyvitamin D3 [Mass/Vol] 27.1 ng/mL Low 31.0-80.0 [facility] Comment on above: Order Comment: Speci men Type: BLOOD SPECIMEN Ordering Facility: [facility] Address: [address] [place] [address] [place] [address] Result Comment: Clas sification of 25 [place] Vitamin D status: Deficiency/Insufficiency: < or = 30 ng/ml. Sufficiency/Optimal Levels: 31-80 ng/mL Toxicity: > 100 ng/mL. Test performed by chemiluminescent immunoassay. Performed By: #### 1 989-3 #### [facility] CLIA [id number] [address] [place] [address] [place] [place] CBC W Auto Differential pane l (Bld)on 04-04-2024 Basophils (Bld) [#/Vol] 0.06 10*3/uL Normal <0.11 [facility] Comment on above: Order Comment: Speci men Type: BLOOD SPECIMEN Ordering Facility: [facility] Address: [address] [place] [address] Performed By: #### 1 0886-0, 48211-7, LIPNF, 308-1 #### [facility] CLIA [id number] [address] [place] [address] [place] Basophils/100 WBC (Bld) 0.7 % Normal [facility] Comment on above: Order Comment: Speci men Type: BLOOD SPECIMEN Ordering Facility: [facility] Address: [address] [place] [address] Performed By: #### 1 0886-0, 13858-2, LIPNF, 3083-1 #### [facility] CLIA [id number] [address] [place] [address] [place] Differential cell count method Nom (Bld) Auto Normal [facility] Comment on above: Order Comment: Speci men Type: BLOOD SPECIMEN Ordering Facility: [facility] Address: [address] [place] [address] Performed By: #### 1 0886-0, 37276-8, LIPNF, 308-1 #### [facility] CLIA [id number] [address] [place] [address] [place] Eosinophils (Bld) [#/Vol] 0.43 10*3/uL Normal <0.46 [facility] Comment on above: Order Comment: Speci men Type: BLOOD SPECIMEN Ordering Facility: [facility] Address: [address] [place] [address] Performed By: #### 1 0886-0, 40786-2, LIPNF, 3083-1 #### [facility] CLIA [id number] [address] [place] [address] [place] Eosinophils/100 WBC (Bld) 5.1 % Normal [facility] Comment on above: Order Comment: Speci men Type: BLOOD SPECIMEN Ordering Facility: [facility] Address: [address] [place] [address] Performed By: #### 1 0886-0, 00024-7, LIPNF, 3083-1 #### [facility] CLIA [id number] [address] [place] [address] [place] Erythrocyte distribution width (RBC) [Ratio] 13.1 % Normal 11.5-15.0 [facility] Comment on above: Order Comment: Speci men Type: BLOOD SPECIMEN Ordering Facility: [facility] Address: [address] [place] [address] Performed By: #### 1 0886-0, 84317-8, LIPNF, 3083-1 #### [facility] CLIA [id number] [address] [place] [address] [place] Hematocrit (Bld) [Volume fraction] 39.0 % Normal 39.0-51.0 [facility] Comment on above: Order Comment: Speci men Type: BLOOD SPECIMEN Ordering Facility: [facility] Address: [address] [place] [address] Performed By: #### 1 0886-0, 30785-6, LIPNF, 3083-1 #### [facility] CLIA [id number] [address] [place] [address] [place] Hemoglobin (Bld) [Mass/Vol] 12.8 g/dL Low 13.0-17.0 [facility] Comment on above: Order Comment: Speci men Type: BLOOD SPECIMEN Ordering Facility: [facility] Address: [address] [place] [address] Performed By: #### 1 0886-0, 03651-3, LIPNF, 3083-1 #### [facility] CLIA [id number] [address] [place] [address] [place] Immature granulocytes (Bld) [#/Vol] 0.15 10*3/uL High <0.10 [facility] Comment on above: Order Comment: Speci men Type: BLOOD SPECIMEN Ordering Facility: [facility] Address: [address] [place] [address] Performed By: #### 1 0886-0, 58250-3, LIPNF, 3083-1 #### [facility] CLIA [id number] [address] [place] [address] [place] Immature granulocytes/100 WBC (Bld) 1.8 % Normal [facility] Comment on above: Order Comment: Speci men Type: BLOOD SPECIMEN Ordering Facility: [facility] Address: [address] [place] [address] Performed By: #### 1 0886-0, 64605-1, LIPNF, 3083-1 #### [facility] CLIA [id number] [address] [place] [address] [place] Lymphocytes (Bld) [#/Vol] 0.64 10*3/uL Low 1.00-4.00 [facility] Comment on above: Order Comment: Speci men Type: BLOOD SPECIMEN Ordering Facility: [facility] Address: [address] [place] [address] Performed By: #### 1 0886-0, 28177-0, LIPNF, 3083-1 #### [facility] CLIA [id number] [address] [place] [address] [place] Lymphocytes/100 WBC (Bld) 7.6 % Normal [facility] Comment on above: Order Comment: Speci men Type: BLOOD SPECIMEN Ordering Facility: [facility] Address: [address] [place] [address] Performed By: #### 1 0886-0, 99975-1, LIPNF, 3083-1 #### [facility] CLIA [id number] [address] [place] [address] [place] MCH (RBC) [Entitic mass] 34.9 pg High 26.0-34.0 [facility] Comment on above: Order Comment: Speci men Type: BLOOD SPECIMEN Ordering Facility: [facility] Address: [address] [place] [address] Performed By: #### 1 0886-0, 24638-9, LIPNF, 3083-1 #### [facility] CLIA [id number] [address] [place] [address] [place] MCHC (RBC) [Mass/Vol] 32.8 g/dL Normal 30.5-36.0 [facility] Comment on above: Order Comment: Speci men Type: BLOOD SPECIMEN Ordering Facility: [facility] Address: [address] [place] [address] Performed By: #### 1 0886-0, 45151-6, LIPNF, 3083-1 #### [facility] CLIA [id number] [address] [place] [address] [place] MCV (RBC) [Entitic vol] 106.3 fL High 80.0-100.0 [facility] Comment on above: Order Comment: Speci men Type: BLOOD SPECIMEN Ordering Facility: [facility] Address: [address] [place] [address] Performed By: #### 1 0886-0, 82368-6, LIPNF, 3083-1 #### [facility] CLIA [id number] [address] [place] [address] [place] Monocytes (Bld) [#/Vol] 0.96 10*3/uL High <0.87 [facility] Comment on above: Order Comment: Speci men Type: BLOOD SPECIMEN Ordering Facility: [facility] Address: [address] [place] [address] Performed By: #### 1 0886-0, 26042-0, LIPNF, 3083-1 #### [facility] CLIA [id number] [address] [place] [address] [place] Monocytes/100 WBC (Bld) 11.4 % Normal [facility] Comment on above: Order Comment: Speci men Type: BLOOD SPECIMEN Ordering Facility: [facility] Address: [address] [place] [address] Performed By: #### 1 0886-0, 14119-4, LIPNF, 3083-1 #### [facility] CLIA [id number] [address] [place] [address] [place] Neutrophils (Bld) [#/Vol] 6.17 10*3/uL Normal 1.45-7.50 [facility] Comment on above: Order Comment: Speci men Type: BLOOD SPECIMEN Ordering Facility: [facility] Address: [address] [place] [address] Performed By: #### 1 0886-0, 37586-4, LIPNF, 3083-1 #### [facility] CLIA [id number] [address] [place] [address] [place] Neutrophils/100 WBC (Bld) 73.4 % Normal [facility] Comment on above: Order Comment: Speci men Type: BLOOD SPECIMEN Ordering Facility: [facility] Address: [address] [place] [address] Performed By: #### 1 0886-0, 19474-3, LIPNF, 3083-1 #### [facility] CLIA [id number] [address] [place] [address] [place] Nucleated RBC (Bld) [#/Vol] 10*3/uL Normal <0.01 [facility] Comment on above: Order Comment: Speci men Type: BLOOD SPECIMEN Ordering Facility: [facility] Address: [address] [place] [address] Performed By: #### 1 0886-0, 80960-0, LIPNF, 3084-1 #### [facility] CLIA [id number] [address] [place] [address] [place] Nucleated RBC/100 WBC (Bld) [Ratio] 0.0 /100 WBC Normal [facility] Comment on above: Order Comment: Speci men Type: BLOOD SPECIMEN Ordering Facility: [facility] Address: [address] [place] [address] Performed By: #### 1 0886-0, 36990-5, LIPNF, 3084-1 #### [facility] CLIA [id number] [address] [place] [address] [place] Platelet mean volume (Bld) [Entitic vol] 10.5 fL Normal 9.0-12.7 [facility] Comment on above: Order Comment: Speci men Type: BLOOD SPECIMEN Ordering Facility: [facility] Address: [address] [place] [address] Performed By: #### 1 0886-0, 76343-2, LIPNF, 3083-1 #### [facility] CLIA [id number] [address] [place] [address] [place] Platelets (Bld) [#/Vol] 193 10*3/uL Normal 150-400 [facility] Comment on above: Order Comment: Speci men Type: BLOOD SPECIMEN Ordering Facility: [facility] Address: [address] [place] [address] Performed By: #### 1 0886-0, 35971-3, LIPNF, 308-1 #### [facility] CLIA [id number] [address] [place] [address] [place] RBC (Bld) [#/Vol] 3.67 10*6/uL Low 4.20-6.00 [facility] Comment on above: Order Comment: Speci men Type: BLOOD SPECIMEN Ordering Facility: [facility] Address: [address] [place] [address] Performed By: #### 1 0886-0, 11624-1, LIPNF, 3084-1 #### [facility] CLIA [id number] [address] [place] [address] [place] WBC (Bld) [#/Vol] 8.41 10*3/uL Normal 3.70-11.00 [facility] Comment on above: Order Comment: Speci men Type: BLOOD SPECIMEN Ordering Facility: [facility] Address: [address] [place] [address] Performed By: #### 1 0886-0, 52998-8, LIPNF, 3084-1 #### [facility] CLIA [id number] [address] [place] [address] [place] CNOVon 04-04-2024 [facility] -- NAZARIO HUTTON ([id number]) 1950 M Date Time Provider Department 04/04/24 11:40 AM NI SAUCEDA During your visit today, we recorded the following information about you: Pulse Respiration Blood pressure Weight 58/minute 14/minute 155/84 92.5 kg Ni Sauceda, [employer].[facility] [place] 04/04/2024 11:56 AM Signed Chief Complaint Patient presents with: ER F/U HPI Nazariobrissa Hutton is a 73 year old male who presents here today for Above Complaints.. Patient presents for ER follow up. Patient seen in [facility] for angioedema. Losartan d/c'd by Dr. 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 Normal [facility] metabolic 2000 panelon 04-04-2024 Albumin [Mass/Vol] 3.8 g/dL Low 3.9-4.9 [facility] Comment on above: Order Comment: Speci men Type: BLOOD SPECIMENOrdering Facility: [facility] Address: [address] [place] [address] Performed By: #### 1 0886-0, 86110-0, LIPNF, 3084-1 ####[facility] [id number] [place] [address] [place] ALP [Catalytic activity/Vol] 110 U/L Normal 38-113 [facility] Comment on above: Order Comment: Speci men Type: BLOOD SPECIMENOrdering Facility: [facility] Address: [address] [place] [address] Performed By: #### 1 0886-0, 33627-1, LIPNF, 3084-1 ####[facility] [id number] [place] [address] [place] ALT [Catalytic activity/Vol] 38 U/L Normal 10-54 [facility] Comment on above: Order Comment: Speci men Type: BLOOD SPECIMENOrdering Facility: [facility] Address: [address] [place] [address] Performed By: #### 1 0886-0, 01035-0, LIPNF, 3084-1 ####[facility] [id number] [place] [address] [place] Anion gap [Moles/Vol] 11 mmol/L Normal 8-15 [facility] Comment on above: Order Comment: Speci men Type: BLOOD SPECIMENOrdering Facility: [facility] Address: [address] [place] [address] Performed By: #### 1 0886-0, 21234-1, LIPNF, 3084-1 ####[facility] [id number] [place] [address] [place] AST [Catalytic activity/Vol] 47 U/L High 14-40 [facility] Comment on above: Order Comment: Speci men Type: BLOOD SPECIMENOrdering Facility: [facility] Address: [address] [place] [address] Performed By: #### 1 0886-0, 42945-9, LIPNF, 3084-1 ####[facility] [id number] [place] [address] [place] Bilirubin [Mass/Vol] 0.4 mg/dL Normal 0.2-1.3 [facility] Comment on above: Order Comment: Speci men Type: BLOOD SPECIMENOrdering Facility: [facility] Address: [address] [place] [address] Performed By: #### 1 0886-0, 19380-3, LIPNF, 3083-1 ####[facility] [id number] [place] [address] [place] Calcium [Mass/Vol] 9.7 mg/dL Normal 8.5-10.2 [facility] Comment on above: Order Comment: Speci men Type: BLOOD SPECIMENOrdering Facility: [facility] Address: [address] [place] [address] Performed By: #### 1 0886-0, 91335-7, LIPNF, 3083-1 ####[facility] [id number] [place] [address] [place] Chloride [Moles/Vol] 109 mmol/L High 98-107 [facility] Comment on above: Order Comment: Speci men Type: BLOOD SPECIMENOrdering Facility: [facility] Address: [address] [place] [address] Performed By: #### 1 0886-0, 91309-0, LIPNF, 308-1 ####[facility] [id number] [place] [address] [place] CO2 [Moles/Vol] 22 mmol/L Normal 22-30 [facility] Comment on above: Order Comment: Speci men Type: BLOOD SPECIMENOrdering Facility: [facility] Address: [address] [place] [address] Performed By: #### 1 0886-0, 76322-7, LIPNF, 3083-1 ####[facility] [id number] [place] [address] [place] Creatinine [Mass/Vol] 0.74 mg/dL Normal 0.73-1.22 [facility] Comment on above: Order Comment: Speci men Type: BLOOD SPECIMENOrdering Facility: [facility] Address: [address] [place] [address] Performed By: #### 1 0886-0, 36875-1, LIPNF, 3083- ####[facility] [id number] [place] [address] [place] Creatinine and Glomerular filtration rate.predicted panel (S/P/Bld) 96 mL/min/1.73m??? Normal >=60 [facility] Comment on above: Order Comment: Kristii men Type: BLOOD SPECIMENOrdering Facility: [facility] Address: [address] [place] [address] Result Comment: Micaela mated Glomerular Filtration Rate [...] reflect actual GFR. Performed By: #### 1 0886-0, 11687-9, LIPNF, 3083-1 ####[facility] [id number] [place] [address] [place] Glucose [Mass/Vol] 94 mg/dL Normal 74-99 [facility] Comment on above: Order Comment: Speci men Type: BLOOD SPECIMENOrdering Facility: [facility] Address: [address] [place] [address] Result Comment: The [place] Diabetes Association (ADA) provides guidance for cutoff [...] Standards of Medical Care in Diabetes 2016, [place] [employer]. Diabetes Care. 2016.39(Suppl 1). Performed By: #### 1 0886-0, 47448-0, LIPHARJIT, 3083-1 ####[facility] [id number] [place] [address] [place] Potassium [Moles/Vol] 4.6 mmol/L Normal 3.7-5.1 [facility] Comment on above: Order Comment: Speci men Type: BLOOD SPECIMENOrdering Facility: [facility] Address: [address] [place] [address] Performed By: #### 1 0886-0, 47107-5, LIPHARJIT, 3083-1 ####[facility] [id number] [place] [address] [place] Protein [Mass/Vol] 7.1 g/dL Normal 6.3-8.0 [facility] Comment on above: Order Comment: Speci men Type: BLOOD SPECIMENOrdering Facility: [facility] Address: [address] [place] [address] Performed By: #### 1 0886-0, 42314-0, LIPNF, 3083-1 ####[facility] [id number] [place] [address] [place] Sodium [Moles/Vol] 142 mmol/L Normal 136-144 [facility] Comment on above: Order Comment: Speci men Type: BLOOD SPECIMENOrdering Facility: [facility] Address: [address] [place] [address] Performed By: #### 1 0886-0, 84797-9, LIPNF, 3083- ####[facility] [id number] [place] [address] [place] Urea nitrogen [Mass/Vol] 15 mg/dL Normal 9-24 [facility] Comment on above: Order Comment: Speci men Type: BLOOD SPECIMENOrdering Facility: [facility] Address: [address] [place] [address] Performed By: #### 1 0886-0, 88364-6, LIPNF, 3083-07 ####[facility] [id number] [place] [address] [place] Free PSA [Mass/Vol]on 2023 Free PSA/Total PSA [Mass fraction] 24 % Normal [facility] Comment on above: Order Comment: Speci men Type: BLOOD SPECIMEN Ordering Facility: [facility] Address: [address] [place] [address] Result Comment: Tota l and free PSA test methodology used is the Electrochemiluminescence Immunoassay by Reema Amarin. Total or free PSA values by differing [...] 9.1% 12.2% 15.8% Performed By: #### 1 0886-0, 15930-9, LIPNF, 3083-1 #### [facility] CLIA [id number] [address] [id number] [address] [place] Prostate specific Ag [Mass/Vol] 5.42 ng/mL High <2.60 [facility] Comment on above: Order Comment: Speci men Type: BLOOD SPECIMEN Ordering Facility: [facility] Address: [address] [place] [address] Result Comment: Tota l PSA test methodology [...] Patria Hartley M.D., Raquel Ahmadi, M.P.H., Lisseth Rush ScParesh. Effect of Verification Bias on Screening for Prostate Cancer by Measurement of Prostatic Specific Antigen. N Engl J Med 2003,349:335-42. Performed By: #### 1 0886-0, 10889-4, LIPNF, 3084-1 #### [facility] CLIA [id number] [address] [place] [address] [place] LIPID PANEL, NONFASTINGon Cholesterol [Mass/Vol] 146 mg/dL Normal <200 [facility] Comment on above: Order Comment: Speci men Type: BLOOD SPECIMENOrdering Facility: [facility] Address: [address] [place] [address] Result Comment: <200 mg/dL, Desirable 200-239 mg/dL, Borderline high >239 mg/dL, High Performed By: #### 1 0886-0, 06442-8, LIPNF, 3084-1 ####[facility] [id number] [address] [place] HDL CHOLESTEROL, NF 55 mg/dL Normal >39 [facility] Comment on above: Order Comment: Medina peck Type: BLOOD SPECIMENOrdering Facility: [facility] Address: [address] [place] [address] Result Comment: 40-5 9 mg/dL, Acceptable >59 mg/dL, High: Negative risk factor for coronary heart disease <40 mg/dL, Low: Positive risk factor for coronary heart disease Performed By: #### 1 0886-0, 86156-3, LIPNF, 3084-1 ####[facility]IA [id number] [address] OF [facility] LDL CHOLESTEROL, NF 74 mg/dL Normal <100 [facility] Comment on above: Order Comment: Medina peck Type: BLOOD SPECIMENOrdering Facility: [facility] Address: [address] [place] [address] Result Comment: <100 mg/dL, Optimal 100-129 mg/dL, Near optimal/above optimal 130-159 mg/dL, Borderline high 160-189 mg/dL, High >189 mg/dL, Very high Secondary prevention optimal LDL Cholesterol levels are recommended to be < 70 mg/dL Performed By: #### 1 0886-0, 04754-8, LIPNF, 3084-1 ####[facility] [id number] [address] OF [facility] LDL/HDL RATIO, NF 1.35 mg/dL Normal <2.54 [facility] Comment on above: Order Comment: Kristii liv Type: BLOOD SPECIMENOrdering Facility: [facility] Address: [address] [place] [address] Result Comment: Rhonda barnes: 1. National Cholesterol Education Program ATP III Guideline At-A-Glance Quick Desk Reference: National Heart, Lung, and Blood [place]. National Institutes of Health. 2001: NIH Publication No. 01-3305. 2. An International Atherosclerosis Society position paper: global recommendations for the management of dyslipidemia: executive summary, Atherosclerosis. 2014: 232(2):410-413. Performed By: #### 1 0886-0, 22239-0, LIPNF, 3083-1 ####[facility]IA [id number] [place] [address] [place] NON HDL CHOL, NF 91 mg/dL Normal <130 [facility] Comment on above: Order Comment: Speci men Type: BLOOD SPECIMENOrdering Facility: [facility] Address: [address] [place] [address] Result Comment: <130 mg/dL, Optimal 130-159 mg/dL, Near optimal/above optimal 160-189 mg/dL, Borderline high 190-219 mg/dL, High >219 mg/dL, Very high Secondary prevention optimal non HDL Cholesterol levels are recommended to be <100 mg/dL Performed By: #### 1 0886-0, 40255-6, LIPNF, 3083-1 ####[facility]IA [id number] [place] [address] [place] T CHOL/HDL RATIO NF 2.65 mg/dL Normal <5.10 [facility] Comment on above: Order Comment: Medina peck Type: BLOOD SPECIMENOrdering Facility: [facility] Address: [address] [place] [address] Performed By: #### 1 0886-0, 10126-3, LIPNF, 3083-1 ####[facility]IA [id number] [place] [address] [place] TRIGLYCERIDES, NF 83 mg/dL Normal <150 [facility] Comment on above: Order Comment: Kristii men Type: BLOOD SPECIMENOrdering Facility: [facility] Address: [address] [place] [address] Result Comment: <150 mg/dL, Normal 150-199 mg/dL, Borderline high 200-499 mg/dL, High >499 mg/dL, Very high Performed By: #### 1 0886-0, 03368-0, LIPNF, 3083-1 ####[facility]IA [id number] [place] [address] [place] VLDL CHOLESTEROL, NF 17 mg/dL Normal <30 [facility] Comment on above: Order Comment: Speci men Type: BLOOD SPECIMENOrdering Facility: [facility] Address: [address] [place] [address] Performed By: #### 1 0886-0, 51072-1, LIPNF, 3084-1 ####[facility]IA [id number] [place] [address] [place] Urate SerPl-mCncon Urate [Mass/Vol] 5.3 mg/dL Normal 4.0-8.1 [facility] Comment on above: Order Comment: Speci men Type: BLOOD SPECIMENOrdering Facility: [facility] Address: [address] [place] [address] Performed By: #### 1 0886-0, 60626-4, LIPNF, 3084-1 ####[facility]IA [id number] [place] [address] [place] [place] Urinalysis complete panel (U )on 04-04-2024 Bacteria LM.HPF (Urine sed) [#/Area] Negative Normal Negative [facility] Comment on above: Order Comment: Speci men Type: URINE SPECIMEN Ordering Facility: [facility] Address: [address] [place] [address] Performed By: #### U 24MPA #### [facility] CLIA [id number] [address] [place] [address] [place] Bilirubin Ql (U) Negative Normal Negative [facility] Comment on above: Order Comment: Speci men Type: URINE SPECIMEN Ordering Facility: [facility] Address: [address] [place] [address] Performed By: #### U 24MPA #### [facility] CLIA [id number] [address] [place] [address] [place] Clarity (Unsp spec) Clear Normal Clear [facility] Comment on above: Order Comment: Speci men Type: URINE SPECIMEN Ordering Facility: [facility] Address: [address] [place] [address] Performed By: #### U 24MPA #### [facility] CLIA [id number] [address] [place] [address] [place] Color (U) Yellow Normal Yellow [facility] Comment on above: Order Comment: Speci men Type: URINE SPECIMEN Ordering Facility: [facility] Address: [address] [place] [address] Performed By: #### U 24MPA #### [facility] CLIA [id number] [address] [place] [address] [place] Epithelial cells LM.HPF (Urine sed) [#/Area] None Seen Normal [facility] Comment on above: Order Comment: Speci men Type: URINE SPECIMEN Ordering Facility: [facility] Address: [address] [place] [address] Performed By: #### U 24MPA #### [facility] CLIA [id number] [address] [place] [address] [place] Glucose Test strip (U) [Mass/Vol] Negative Normal Negative [facility] Comment on above: Order Comment: Speci men Type: URINE SPECIMEN Ordering Facility: [facility] Address: [address] [place] [address] Performed By: #### U 24MPA #### [facility] CLIA [id number] [address] [place] [address] [place] Hemoglobin Ql (U) Negative Normal Negative [facility] Comment on above: Order Comment: Speci men Type: URINE SPECIMEN Ordering Facility: [facility] Address: [address] [place] [address] Performed By: #### U 24MPA #### [facility] CLIA [id number] [address] [place] [address] [place] Hyaline casts (Urine sed) [#/Area] 4-10 /LPF Abnormal 0 /LPF [facility] Comment on above: Order Comment: Speci men Type: URINE SPECIMEN Ordering Facility: [facility] Address: [address] [place] [address] Performed By: #### U 24MPA #### [facility] CLIA [id number] [address] [place] [address] [place] Ketones Ql (U) Negative Normal Negative [facility] Comment on above: Order Comment: Speci men Type: URINE SPECIMEN Ordering Facility: [facility] Address: [address] [place] [address] Performed By: #### U 24MPA #### [facility] CLIA [id number] [address] [place] [address] [place] Leukocyte esterase Test strip Ql (U) 1+ Abnormal Negative [facility] Comment on above: Order Comment: Speci men Type: URINE SPECIMEN Ordering Facility: [facility] Address: [address] [place] [address] Performed By: #### U 24MPA #### [facility] CLIA [id number] [address] [place] [address] [place] Nitrite Ql (U) Negative Normal Negative [facility] Comment on above: Order Comment: Speci men Type: URINE SPECIMEN Ordering Facility: [facility] Address: [address] [place] [address] Performed By: #### U 24MPA #### [facility] CLIA [id number] [address] [place] [address] [place] pH (U) 5.5 [pH] Normal <8.5 [facility] Comment on above: Order Comment: Speci men Type: URINE SPECIMEN Ordering Facility: [facility] Address: [address] [place] [address] Performed By: #### U 24MPA #### [facility] CLIA [id number] [address] [place] [address] [place] Protein (U) [Mass/Vol] Negative Normal Negative [facility] Comment on above: Order Comment: Speci men Type: URINE SPECIMEN Ordering Facility: [facility] Address: [address] [place] [address] Performed By: #### U 24MPA #### [facility] CLIA [id number] [address] [place] [address] [place] RBC LM.HPF (Urine sed) [#/Area] 0-2 /HPF Normal 0-2 /HPF [facility] Comment on above: Order Comment: Speci men Type: URINE SPECIMEN Ordering Facility: [facility] Address: [address] [place] [address] Performed By: #### U 24MPA #### [facility] CLIA [id number] [address] [place] [address] [place] Specific gravity (U) [Rel density] 1.019 Normal 1.005-1.030 [facility] Comment on above: Order Comment: Speci men Type: URINE SPECIMEN Ordering Facility: [facility] Address: [address] [place] [address] Performed By: #### U 24MPA #### [facility] CLIA [id number] [address] [place] [address] [place] Urobilinogen Ql (U) 0.2 EU/dL Normal 0.2-1.0 EU/dL [facility] Comment on above: Order Comment: Speci men Type: URINE SPECIMEN Ordering Facility: [facility] Address: [address] [place] [address] Performed By: #### U 24MPA #### [facility] CLIA [id number] [address] [place] [address] [place] WBC LM.HPF (Urine sed) [#/Area] 0-5 /HPF Normal 0-5 /HPF [facility] Comment on above: Order Comment: Speci men Type: URINE SPECIMEN Ordering Facility: [facility] Address: [address] [place] [address] Performed By: #### U 24MPA #### [facility] CLIA [id number] [address] [place] [address] [place] Vit B12 SerPl-mCncon 024 Cobalamin (Vitamin B12) [Mass/Vol] 905 pg/mL Normal 232-1245 [facility] Comment on above: Order Comment: Speci men Type: BLOOD SPECIMEN Ordering Facility: [facility] Address: [address] [place] [address] Performed By: #### 4 [id number] #### [facility] CLIA [id number] [address] [place] [address] [place] CNPNon 04-01-2024 [facility] (FAMP[facility] -- NAZARIO HUTTON ([id number]) 1950 Date Time Provider Department 04/01/24 GANESH WHITE [facility] During your visit today, we recorded the following information about you: Ganesh White MA 04/01/2024 2:33 PM Signed Patient was in ER for allergic reaction. Dr. Gael arguelles. Advise patient to stop the losartan. 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 Onset- when he awoke today. Denies difficulty breathing. No pain. Is able to swallow but has difficulty-sometimes has to spit saliva out. He is referred to ER for further evaluation and treatment. He is agreeable to this and will go to [place] [facility]. Offered ambulance transport-he refused. He appears stable to self-transport. Report sent via ER passport. 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 CT Neck W contrast Tamara 07- * * *Final Report* * * DATE OF EXAM: Feb 08 2024 3:51PM [facility] 0024 - CTA NECK W IVCON / PROCEDURE REASON: Occlusion and stenosis of unspecified carotid artery * * * * Physician Interpretation * * * * EXAMINATION: CTA HEAD W IVCON, CTA NECK W IVCON HISTORY: Occlusion and stenosis of unspecified carotid artery - - - OtherCarotid stenosis - concern for such on MRA brain with rad recommending further e (accession [id number]), Carotid Stenosis (accession [id number]) - Carotid artery stenosis, Carotid stenosis - [...] Short segment mild narrowing of the LEFT [employer] P2 segment No abrupt vessel occlusion, intraluminal filling defect, high-grade stenosis, or aneurysm in the posterior intracranial circulation. Opacified dural venous sinuses and major deep and superficial draining veins are patent. Manager Diversity (topogram) images: No additional findings. DIVISION OF RADIOLOGY Provider, [facility] - 02/08/2024 * * *Final Report* * * DATE OF EXAM: Feb 08 2024 3:51PM [facility] 0024 - CTA NECK W IVCON / PROCEDURE REASON: Occlusion and stenosis of unspecified carotid artery * * * * Physician Interpretation * * * * EXAMINATION: CTA HEAD W IVCON, CTA NECK W IVCON HISTORY: Occlusion and stenosis of unspecified carotid artery - - - OtherCarotid stenosis - concern for such on MRA brain with rad recommending further e (accession [id number]), Carotid Stenosis (accession [id number]) - Carotid artery stenosis, Carotid stenosis - [...] Short segment mild narrowing of the LEFT [employer]ATE P2 segment No abrupt vessel occlusion, intraluminal filling defect, high-grade stenosis, or aneurysm in the posterior intracranial circulation. Opacified dural venous sinuses and major deep and superficial draining veins are patent. Manager Diversity (topogram) images: No additional findings. IMPRESSION IMPRESSION: [...] between software and imaging review: Not Applicable. Accessioner: [email or web address] Transcribe Date/Time: Feb 08 2024 3:55P Dictated by : CINDY DRAPER MD This examination was (more content not included)... [facility] CTA Head Arteries W contrast Tamara 02-08-2024 * * *Final Report* * * DATE OF EXAM: Feb 08 2024 3:51PM [facility] 0022 - CTA HEAD W IVCON / PROCEDURE REASON: Occlusion and stenosis of unspecified carotid artery * * * * Physician Interpretation * * * * EXAMINATION: CTA HEAD W IVCON, CTA NECK W IVCON HISTORY: Occlusion and stenosis of unspecified carotid artery - - - OtherCarotid stenosis - concern for such on MRA brain with rad recommending further e (accession [id number]), Carotid Stenosis (accession [id number]) - Carotid artery stenosis, Carotid stenosis - [...] Short segment mild narrowing of the LEFT [employer]ATE P2 segment No abrupt vessel occlusion, intraluminal filling defect, high-grade stenosis, or aneurysm in the posterior intracranial circulation. Opacified dural venous sinuses and major deep and superficial draining veins are patent. Manager Diversity (topogram) images: No additional findings. DIVISION OF RADIOLOGY Provider, [facility] - 02/08/2024 * * *Final Report* * * DATE OF EXAM: Feb 08 2024 3:51PM [facility] 0022 - CTA HEAD W IVCON / PROCEDURE REASON: Occlusion and stenosis of unspecified carotid artery * * * * Physician Interpretation * * * * EXAMINATION: CTA HEAD W IVCON, CTA NECK W IVCON HISTORY: Occlusion and stenosis of unspecified carotid artery - - - OtherCarotid stenosis - concern for such on MRA brain with rad recommending further e (accession [id number]), Carotid Stenosis (accession [id number]) - Carotid artery stenosis, Carotid stenosis - [...] Short segment mild narrowing of the LEFT [employer]ATE P2 segment No abrupt vessel occlusion, intraluminal filling defect, high-grade stenosis, or aneurysm in the posterior intracranial circulation. Opacified dural venous sinuses and major deep and superficial draining veins are patent. Manager Diversity (topogram) images: No additional findings. IMPRESSION IMPRESSION: [...] between software and imaging review: Not Applicable. Accessioner: PSCB Transcribe Date/Time: Feb 08 2024 3:55P Dictated by : CINDY DRAPER MD This examination was (more content not included)... [facility] No Panel Informationon 02-07 IMPRESSION: No hemodynamically [...] between software and imaging review: Not Applicable. Accessioner: DULCE Transcribe Date/Time: Feb 08 2024 3:55P Dictated by : CINDY DRAPER MD This examination was interpreted and the report reviewed and electronically signed by: CIDNY DRAPER MD on Feb 08 2024 4:16PM [facility] DIVISION OF RADIOLOGY Radiology Study observation (narrative) [facility] No Panel InformationOrdered By: Ccf Provider on 02-08-2024 [facility] MR Brain WO contraston 02-05 * * *Final Report* * * DATE OF EXAM: Feb 06 2024 10:00AM [facility] 0294 - MRI BRAIN WO IVCON / PROCEDURE REASON: Other symptoms and signs involving the nervous system * * * * Physician Interpretation * * * * EXAMINATION: MRA BRAIN WO IVCON, MRA CAROTID WO IVCON, MRI BRAIN WO IVCON CLINICAL HISTORY: Vertebrobasilar insufficiency TECHNIQUE: Routine noncontrast MRI protocol including diffusion and gradient echo images. Intracranial and extracranial 3D zrrz-cb-izviro MRA with post-processing performed at the modality [...] Dominance: Left dominant. DIVISION OF RADIOLOGY Provider, [facility] - 02/06/2024 * * *Final Report* * * DATE OF EXAM: Feb 06 2024 10:00AM [facility] 0294 - MRI BRAIN WO IVCON / PROCEDURE REASON: Other symptoms and signs involving the nervous system * * * * Physician Interpretation * * * * EXAMINATION: MRA BRAIN WO IVCON, MRA CAROTID WO IVCON, MRI BRAIN WO IVCON CLINICAL HISTORY: Vertebrobasilar insufficiency TECHNIQUE: Routine noncontrast MRI protocol including diffusion and gradient echo images. Intracranial and extracranial 3D cmvl-li-agdlzg MRA with post-processing performed at the modality [...] be communicated with the ordering provider via [employer] staff message or phone message by [employer] within 2 business days of report finalization. --END OF FINDING-- Accessioner: DULCE Transcribe Date/Time: Feb 06 2024 10:35A Dictated by : ILANA LAWRENCE MD This examination was interpreted and the report reviewed and electronically signed by: ILANA LAWRENCE MD on Feb 06 2024 10:43AM [facility] MRA Head vessels WO contrast on 02-06-2024 * * *Final Report* * * DATE OF EXAM: Feb 06 2024 10:00AM [facility] 0272 - MRA BRAIN WO IVCON / PROCEDURE REASON: Other symptoms and signs involving the nervous system * * * * Physician Interpretation * * * * EXAMINATION: MRA BRAIN WO IVCON, MRA CAROTID WO IVCON, MRI BRAIN WO IVCON CLINICAL HISTORY: Vertebrobasilar insufficiency TECHNIQUE: Routine noncontrast MRI protocol including diffusion and gradient echo images. Intracranial and extracranial 3D qfbk-li-qavgrq MRA with post-processing performed at the modality [...] Dominance: Left dominant. DIVISION OF RADIOLOGY Provider, Aileen Jose Juan [facility] - 02/06/2024 * * *Final Report* * * DATE OF EXAM: Feb 06 2024 10:00AM [facility] 0272 - MRA BRAIN WO IVCON / PROCEDURE REASON: Other symptoms and signs involving the nervous system * * * * Physician Interpretation * * * * EXAMINATION: MRA BRAIN WO IVCON, MRA CAROTID WO IVCON, MRI BRAIN WO IVCON CLINICAL HISTORY: Vertebrobasilar insufficiency TECHNIQUE: Routine noncontrast MRI protocol including diffusion and gradient echo images. Intracranial and extracranial 3D cmrg-gy-ahlfxe MRA with post-processing performed at the modality [...] be communicated with the ordering provider via [employer] staff message or phone message by [facility] [employer] within 2 business days of report finalization. --END OF FINDING-- Accessioner: DULCE Transcribe Date/Time: Feb 06 2024 10:35A Dictated by : ILANA LAWRENCE MD This examination was interpreted and the report reviewed and electronically signed by: ILANA LAWRENCE MD on Feb 06 2024 10:43AM [facility] MRA Neck vessels WO contrast on 02-06-2024 * * *Final Report* * * DATE OF EXAM: Feb 06 2024 10:00AM [facility] 0275 - MRA CAROTID WO IVCON / PROCEDURE REASON: Other symptoms and signs involving the nervous system * * * * Physician Interpretation * * * * EXAMINATION: MRA BRAIN WO IVCON, MRA CAROTID WO IVCON, MRI BRAIN WO IVCON CLINICAL HISTORY: Vertebrobasilar insufficiency TECHNIQUE: Routine noncontrast MRI protocol including diffusion and gradient echo images. Intracranial and extracranial 3D jacz-qn-zpdkma MRA with post-processing performed at the modality [...] Dominance: Left dominant. DIVISION OF RADIOLOGY Provider, [facility] - 02/06/2024 * * *Final Report* * * DATE OF EXAM: Feb 06 2024 10:00AM [facility] 0275 - MRA CAROTID WO IVCON / PROCEDURE REASON: Other symptoms and signs involving the nervous system * * * * Physician Interpretation * * * * EXAMINATION: MRA BRAIN WO IVCON, MRA CAROTID WO IVCON, MRI BRAIN WO IVCON CLINICAL HISTORY: Vertebrobasilar insufficiency TECHNIQUE: Routine noncontrast MRI protocol including diffusion and gradient echo images. Intracranial and extracranial 3D rmof-uz-mldisg MRA with post-processing performed at the modality [...] be communicated with the ordering provider via [employer] staff message or phone message by [facility] [employer] [facility] within 2 business days of report finalization. --END OF FINDING-- Accessioner: DULCE Transcribe Date/Time: Feb 06 2024 10:35A Dictated by : ILANA LAWRENCE MD This examination was interpreted and the report reviewed and electronically signed by: ILANA LAWRENCE MD on Feb 06 2024 10:43AM [facility] No Panel InformationOrdered By: Ccf Provider on 02-06-2024 Interpretation and review of laboratory results Abnormal [facility] Radiology Result ACTIONABLE Abnormal [facility] Comment on above: This report [...] contact your provider for the next steps. [facility] No Panel Informationon 02-05 IMPRESSION: No acute [...] be communicated with the ordering provider via [employer] staff message or phone message by [facility] [employer] [facility] within 2 business days of report finalization. --END OF FINDING-- Accessioner: DULCE Transcribe Date/Time: Feb 06 2024 10:35A Dictated by : ILANA LAWRENCE MD This examination was interpreted and the report reviewed and electronically signed by: ILANA LAWRENCE MD on Feb 06 2024 10:43AM [facility] DIVISION OF RADIOLOGY Radiology Study observation (narrative) [facility] CBC W Auto Differential pane l (Bld)on 10-17-2023 Basophils (Bld) [#/Vol] 0.05 10*3/uL <0.11 k/uL [facility] Basophils/100 WBC (Bld) 0.7 % [facility] Differential cell count method Nom (Bld) Auto [facility] Eosinophils (Bld) [#/Vol] 0.62 10*3/uL High <0.46 k/uL [facility] Eosinophils/100 WBC (Bld) 8.2 % [facility] Erythrocyte distribution width (RBC) [Ratio] 13.3 % 11.5 - 15.0 % [facility] Hematocrit (Bld) [Volume fraction] 42.4 % 39.0 - 51.0 % [facility] Hemoglobin (Bld) [Mass/Vol] 14.1 g/dL 13.0 - 17.0 g/dL [facility] Immature granulocytes (Bld) [#/Vol] <0.10 k/uL [facility] Immature granulocytes/100 WBC (Bld) 0.3 % [facility] Lymphocytes (Bld) [#/Vol] 0.83 10*3/uL Low 1.00 - 4.00 k/uL [facility] Lymphocytes/100 WBC (Bld) 11.0 % [facility] MCH (RBC) [Entitic mass] 34.3 pg High 26.0 - 34.0 pg [facility] MCHC (RBC) [Mass/Vol] 33.3 g/dL 30.5 - 36.0 g/dL [facility] MCV (RBC) [Entitic vol] 103.2 fL High 80.0 - 100.0 fL [facility] Monocytes (Bld) [#/Vol] 1.00 10*3/uL High <0.87 k/uL [facility] Monocytes/100 WBC (Bld) 13.2 % [facility] Neutrophils (Bld) [#/Vol] 5.05 10*3/uL 1.45 - 7.50 k/uL [facility] Neutrophils/100 WBC (Bld) 66.6 % [facility] Nucleated RBC (Bld) [#/Vol] <0.01 k/uL [facility] Nucleated RBC/100 WBC (Bld) [Ratio] 0.0 /100 WBC [facility] Platelet mean volume (Bld) [Entitic vol] 10.6 fL 9.0 - 12.7 fL [facility] Platelets (Bld) [#/Vol] 224 10*3/uL 150 - 400 k/uL [facility] RBC (Bld) [#/Vol] 4.11 10*6/uL Low 4.20 - 6.0 0 m/uL [facility] WBC (Bld) [#/Vol] 7.57 10*3/uL 3.70 - 11. 00 k/uL [facility] Urinalysis complete panel (U )on 10-17-2023 Bacteria LM.HPF (Urine sed) [#/Area] Negative Negative /HPF [facility] Bilirubin Ql (U) Negative Negative [facility] Clarity (Unsp spec) Clear Clear [facility] Color (U) Yellow Yellow [facility] Epithelial cells LM.HPF (Urine sed) [#/Area] None Seen [facility] Glucose Test strip (U) [Mass/Vol] Negative Negative [facility] Hemoglobin Ql (U) Negative Negative [facility] Hyaline casts (Urine sed) [#/Area] 0 /[LPF] 0 /LPF [facility] Ketones Ql (U) Negative Negative [facility] Leukocyte esterase Test strip Ql (U) 1+ Abnormal Negative [facility] Nitrite Ql (U) Negative Negative [facility] pH (U) 6.0 [pH] <8.5 [facility] Protein (U) [Mass/Vol] Negative Negative [facility] RBC LM.HPF (Urine sed) [#/Area] 0-2 /HPF 0-2 /HPF [facility] Specific gravity (U) [Rel density] 1.007 1.005 - 1.030 [facility] Urobilinogen Ql (U) 0.2 EU/dL 0.2-1.0 EU/dL [facility] WBC LM.HPF (Urine sed) [#/Area] 0-5 /HPF 0-5 /HPF [facility] Absolute lymphocyte countOrd ered By: Estefany Thrasher on 09-05-2023 Lymphocytes Auto (Unsp spec) [#/Vol] 0.60 10*3/uL 0.83-4.51 [facility] Automated lymphocyte count a s percentage of total leukocytesOrdered By: Estefany Thrasher on 09-05-2023 Lymphocytes/100 WBC Auto (Unsp spec) 8.2 % 19-41 [facility] Basophil percentageOrdered B y: Estefany Thrasher on 09-05-2023 Basophils/100 WBC (Bld) 0.5 % 0-1 [facility] Chloride [Moles/Vol] 110 mmol/L 98-107 [facility] ter [facility] Eosinophils/100 WBC (Bld) 7.1 % 0-5 [facility] Glucose [Mass/Vol] 97 mg/dL 74-106 [facility] r [facility] Hemoglobin (Bld) [Mass/Vol] 14.3 g/dL 13.0-16.5 [facility] Monocytes/100 WBC (Bld) 12.3 % 0-10 [facility] Neutrophils (Bld) [#/Vol] 5.2 10*3/uL 2.0-7.7 [facility] Neutrophils/100 WBC (Bld) 71.5 % 47-70 [facility] Potassium [Moles/Vol] 4.6 mmol/L 3.5-5.1 [facility] Sodium [Moles/Vol] 140 mmol/L 136-145 [facility] WBC (Bld) [#/Vol] 7.3 10*3/uL 4.4-11.0 [facility] Determination of erythrocyte mean corpuscular volume (MCV)Ordered By: Estefany Thrasher on 09-05-2023 MCV (RBC) [Entitic vol] 103.5 fL 80-94 [facility] Erythrocyte distribution wid th ratioOrdered By: Estefany Thrasher on 09-05-2023 Erythrocyte distribution width (RBC) [Ratio] 12.9 % 11.6-14.6 [facility] Erythrocyte distribution wid th standard deviationOrdered By: Estefany Thrasher on 09-05-2023 Erythrocyte distribution width (RBC) [Entitic vol] 48.9 fL 35.1-43.9 [facility] Hematocrit Auto (Bld) [Volum e fraction]Ordered By: Estefany Thrasher on 09-05-2023 Hematocrit (Bld) [Volume fraction] 43.8 % 40-54 [facility] Immature granulocytes/100 WB C Auto (Bld)Ordered By: Estefany Thrasher on 09-05-2023 Immature granulocytes/100 WBC (Bld) 0.400 % 0.0-0.9 [facility] Comment on above: IG% - Immature Granu locytes (promyelocytes, myelocytes and metamyelocytes) > 1% indicates that a LEFT SHIFT is Present. Laboratory - Chemistry and C hemistry - challengeOrdered By: Estefany Thrasher on 09-05-2023 CO2 [Moles/Vol] 26.0 mmol/L 21.0-32.0 [facility] Natriuretic peptide B (Bld) [Mass/Vol] 140.8 pg/mL 0-100 [facility] Urea nitrogen/Creatinine [Mass ratio] 13.7 mg/mg 10-20 [facility] Laboratory - Hematology and Cell countsOrdered By: Estefany Thrasher on 09-05-2023 MCH (RBC) [Entitic mass] 33.8 pg 27.0-32.0 [facility] MCHC (RBC) [Mass/Vol] 32.6 g/dL 32-36 [facility] Nucleated RBC/100 WBC (Bld) [Ratio] 0 % 0-5 [facility] Platelet mean volume (Bld) [Entitic vol] 10.5 fL 6.2-12.0 [facility] Platelets (Bld) [#/Vol] 214 10*3/uL 150-450 [facility] No Panel InformationOrdered By: Estefany Thrasher on 09-05-2023 Estimated GFR (MDRD) Amer 110 mL/min >60 [facility] Comment on above: GFR Calc Estimated GFR (MDRD) Non-Af Amer 91 mL/min >60 [facility] Comment on above: Non- GFR Calc RBC Auto (Bld) [#/Vol]Ordere d By: Estefany Thrasher on 09-05-2023 RBC (Bld) [#/Vol] 4.23 10*6/uL 4.6-6.2 [facility] Serum or plasma calcium reid urement (mass/volume)Ordered By: Estefany Thrasher on 09-05-2023 Calcium [Mass/Vol] 9.7 mg/dL 8.5-10.1 [facility] Serum or plasma creatinine m easurement (mass/volume)Ordered By: Estefany Thrasher on 09-05-2023 Creatinine [Mass/Vol] 0.87 mg/dL 0.70-1.30 [facility] Comment on above: The validity of the calculated GFR & GFRAA in patients over 70 years has not been determined. Clinical correlation is essential. Serum or plasma urea nitroge n measurement (mass/volume)Ordered By: Estefany Thrasher on 09-05-2023 Urea nitrogen [Mass/Vol] 12 mg/dL 02-07 [facility] Thin prep Papanicolaou smear with manual screeningOrdered By: Estefany Thrasher on 09-05-2023 Thin prep Papanicolaou smear with manual screening 4 5-15 [facility] CNPNon 08-10-2023 [place] Telephone ([facility]) -- NAZARIO HUTTON ( ) 1950 M Date Time Provider Department 08/10/[address] [facility] During your visit today, we recorded the following information about you: Valeriano Beasley MD 08/10/2023 11:14 AM Signed Let patient know his lumbar MRI shows significant changes contributing to his pain. I want to send him to the [facility] neurologist at [facility] Dr. José Miguel Valverde. Order placed. 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] 03/15/2021 Elevated PSA [R97.20] 03/17/2021 [...] Status:Closed by PINEDA STYLES on 08/10/23 Normal [facility] FOLATE SERUMon 04-21-2023 Folate [Mass/Vol] 18.2 ng/mL >4.7 ng/mL [facility] T4 FREE/FREE THYROXon 2022 Free T4 [Mass/Vol] 1.0 ng/dL 0.9 - 1.7 ng/dL [facility] TSH BLDon 04-21-2023 TSH Qn 3.260 m[IU]/L 0.270 - 4.200 mIU/L [facility] VITAMIN B12 BLOODon 04-21-20 Cobalamin (Vitamin B12) [Mass/Vol] 244 pg/mL 232 - 1,245 pg/mL [facility] CBC W/DIFF/PLT (EXTERNAL LAB RALF)on 12-13-2022 BASO ABSOLUTE [facility] Basophils/100 WBC (Bld) 0.9 % [facility] EOS ABSOLUTE [facility] Eosinophils/100 WBC (Bld) 7.6 % [facility] Erythrocyte distribution width (RBC) [Ratio] 15.4 % 12.3 - 15.4 % [facility] Hematocrit (Bld) [Volume fraction] 46.7 % 37.5 - 51.0 % [facility] Hemoglobin (Bld) [Mass/Vol] 15 g/dL 12.6 - 17.7 g/dL [facility] Immature Gran % [facility] IMMATURE GRANS ABSOLUTE [facility] Lymphocytes (Bld) [#/Vol] 0.49 10*3/uL Abnormal 0.7 - 3.1 k/uL [facility] Lymphocytes/100 WBC (Bld) 7.3 % [facility] MCH 31.5 Pg 26.6 - 33 Pg [facility] MCHC (RBC) [Mass/Vol] 32.1 g/dL 31.5 - 35.7 g/dL [facility] MCV (RBC) [Entitic vol] 98.1 fL Abnormal 79 - 97 fL [facility] MONOCYTES ABSOLUTE [facility] Monocytes/100 WBC (Bld) 11.4 % [facility] NEUTROPHILS ABSOLUTE 4.9 k/uL 1.4 - 7 .0 k/uL [facility] Neutrophils/100 WBC (Bld) 72.5 % [facility] Platelets (Bld) [#/Vol] 205 10*3/uL 150 - 379 k/uL [facility] RBC (Bld) [#/Vol] 4.76 10*6/uL 4.14 - 5.8 0 M/uL [facility] WBC (Bld) [#/Vol] 6.7 10*3/uL 3.4 - 10.8 K/uL [facility] FERRITIN BLDon 12-13-2022 Ferritin [Mass/Vol] 64 ng/mL 26 - 388 [facility] IRON PANEL (OUTSIDE)on 12-13 Iron [Mass/Vol] 133 ug/dL 65 - 175 [facility] TIBC 40.1 15 - 55 [facility] Absolute lymphocyte countOrd ered By: Xochilt Casanova on 12-09-2022 Lymphocytes Auto (Unsp spec) [#/Vol] 0.49 10*3/uL 0.83-4.51 [facility] Basophil percentageOrdered B y: Xochilt Casanova on 12-09-2022 Basophils/100 WBC (Bld) 0.9 % 0-1 [facility] Eosinophils/100 WBC (Bld) 7.6 % 0-5 [facility] Neutrophils (Bld) [#/Vol] 4.9 10*3/uL 2.0-7.7 [facility] Neutrophils/100 WBC (Bld) 72.5 % 47-70 [facility] WBC (Bld) [#/Vol] 6.7 10*3/uL 4.4-11.0 [facility] Blood erythrocytes count (nu mber/volume)Ordered By: Xochilt Casanova on 12-09-2022 RBC (Bld) [#/Vol] 4.76 10*6/uL 4.6-6.2 [facility] Blood hemoglobin measurement (mass/volume)Ordered By: Xochilt Casanova on 12-09-2022 Hemoglobin (Bld) [Mass/Vol] 15.0 g/dL 13.0-16.5 [facility] Blood lymphocytes/100 leukoc ytesOrdered By: Xochilt Casanova on 12-09-2022 Lymphocytes/100 WBC (Bld) 7.3 % 19-41 [facility] Blood monocytes/100 leukocyt esOrdered By: Xochilt Casanova on 12-09-2022 Monocytes/100 WBC (Bld) 11.4 % 0-10 [facility] Blood platelet mean volumeOr dered By: Xochilt Casanova on 12-09-2022 Platelet mean volume (Bld) [Entitic vol] 9.5 fL 6.2-12.0 [facility] Determination of erythrocyte mean corpuscular volume (MCV)Ordered By: Xochilt Casanova on 12-09-2022 MCV (RBC) [Entitic vol] 98.1 fL 80-94 [facility] Hematocrit Auto (Bld) [Volum e fraction]Ordered By: Xochilt Casanova on 12-09-2022 Hematocrit (Bld) [Volume fraction] 46.7 % 40-54 [facility] Iron measurement (mass/mass) Ordered By: Xochilt Casanova on 12-09-2022 Iron (Unsp spec) [Mass/Mass] 133 ug/dL 65-175 [facility] Laboratory - Hematology and Cell countsOrdered By: Xochilt Casanova on 12-09-2022 Erythrocyte distribution width (RBC) [Entitic vol] 55.2 fL 35.1-43.9 [facility] Erythrocyte distribution width (RBC) [Ratio] 15.4 % 11.6-14.6 [facility] Immature granulocytes/100 WBC (Bld) 0.300 % 0.0-0.9 [facility] Comment on above: IG% - Immature Granu locytes (promyelocytes, myelocytes and metamyelocytes) > 1% indicates that a LEFT SHIFT is Present. MCH (RBC) [Entitic mass] 31.5 pg 27.0-32.0 [facility] Nucleated RBC/100 WBC (Bld) [Ratio] 0 % 0-5 [facility] MCHC Auto (RBC) [Mass/Vol]Or dered By: Xochilt Casanova on 12-09-2022 MCHC (RBC) [Mass/Vol] 32.1 g/dL 32-36 [facility] No Panel InformationOrdered By: Xochilt Casanova on 12-09-2022 Total Iron Binding Capacity 332 ug/dL 250-450 [facility] Platelets bldOrdered By: Andria Casanova on 12-09-2022 Platelets (Bld) [#/Vol] 205 10*3/uL 150-450 [facility] Serum or plasma ferritin steve surement (mass/volume)Ordered By: Xochilt Casanova on 12-09-2022 Ferritin [Mass/Vol] 64 ng/mL 26-388 [facility] Serum or plasma iron saturat ion measurement (mass fraction)Ordered By: Xochilt Casanova on 12-09-2022 Iron saturation [Mass fraction] 40.1 % 15.0-55.0 [facility] CNPNon 09-15-2022 CNPN Telephone ([facility]) -- NAZARIO HUTTON ( ) 1950 M Date Time Provider Department 09/15/[address] [facility] During your visit today, we recorded [...] walking. 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 Franklin Francois at [place] phone # [phone] Ganesh White MA 09/15/2022 2:34 PM Signed Left message for patient to contact office. Ganesh White MA Faxed information to cardio. LINA Gandara LPN 09/16/2022 2:37 PM Signed Patient returned call and went over results, notes from Dr Beasley with understanding. Aware lab results were faxed to [facility] [employer] office. 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 2 mg/dL [facility] Chloride [Moles/Vol] 107 mmol/L High 97 - 10 5 mmol/L [facility] CO2 [Moles/Vol] 25 mmol/L 22 - 30 mmol/L [facility] Creatinine [Mass/Vol] 0.81 mg/dL 0.73 - 1.22 mg/dL [facility] Estimated Glomerular Filtration Rate 94 mL/min/1.73m >=60 mL/min/1.73m [facility] Glucose [Mass/Vol] 98 mg/dL 74 - 99 mg/dL [facility] Potassium [Moles/Vol] 4.2 mmol/L 3.7 - 5.1 mmol/L [facility] Protein [Mass/Vol] 6.3 g/dL 6.3 - 8.0 g/dL [facility] Sodium [Moles/Vol] 139 mmol/L 136 - 144 mmol/L [facility] Urea nitrogen [Mass/Vol] 6 mg/dL Low 9 - 24 mg/dL [facility] Iron and Iron binding capaci ty panelon 09-15-2022 Iron [Mass/Vol] 23 ug/dL Low 41 - 186 ug/dL [facility] Iron binding capacity [Mass/Vol] 216 ug/dL Low 232 - 386 ug/dL [facility] Iron/TIBC [Molar ratio] 10.6 % Low 15.0 - 57.0 % [facility] LIPID PANEL, NONFASTINGon Cholesterol [Mass/Vol] 117 mg/dL <200 mg/dL [facility] HDL Cholesterol, Nonfasting 35 mg/dL Low >39 mg/dL [facility] LDL Cholesterol, Nonfasting 71 mg/dL <100 mg/dL [facility] LDL/HDL Ratio, Nonfasting 2.03 mg/dL <2.54 mg/dL [facility] Non HDL Cholesterol, Nonfasting 82 mg/dL <130 mg/dL [facility] Total Chol/HDL Ratio, Nonfasting 3.34 mg/dL <5.10 mg/dL [facility] Triglycerides, Nonfasting 55 mg/dL <150 mg/dL [facility] VLDL Cholesterol, Nonfasting 11 mg/dL <30 mg/dL [facility] CBC W Auto Differential pane l (Bld)on 09-14-2022 Basophils (Bld) [#/Vol] 0.04 10*3/uL <0.11 k/uL [facility] Basophils/100 WBC (Bld) 0.3 % [facility] Differential cell count method Nom (Bld) Auto [facility] Eosinophils (Bld) [#/Vol] 0.41 10*3/uL <0.46 k/uL [facility] Eosinophils/100 WBC (Bld) 3.6 % [facility] Erythrocyte distribution width (RBC) [Ratio] 16.9 % High 11.5 - 15.0 % [facility] Hematocrit (Bld) [Volume fraction] 29.3 % Low 39.0 - 51.0 % [facility] Hemoglobin (Bld) [Mass/Vol] 9.2 g/dL Low 13.0 - 17.0 g/dL [facility] Immature granulocytes (Bld) [#/Vol] 0.05 10*3/uL <0.10 k/uL [facility] Immature granulocytes/100 WBC (Bld) 0.4 % [facility] Lymphocytes (Bld) [#/Vol] 0.83 10*3/uL Low 1.00 - 4.00 k/uL [facility] Lymphocytes/100 WBC (Bld) 7.2 % [facility] MCH (RBC) [Entitic mass] 33.0 pg 26.0 - 34.0 pg [facility] MCHC (RBC) [Mass/Vol] 31.4 g/dL 30.5 - 36.0 g/dL [facility] MCV (RBC) [Entitic vol] 105.0 fL High 80.0 - 100.0 fL [facility] Monocytes (Bld) [#/Vol] 0.91 10*3/uL High <0.87 k/uL [facility] Monocytes/100 WBC (Bld) 7.9 % [facility] Neutrophils (Bld) [#/Vol] 9.27 10*3/uL High 1.45 - 7.50 k/uL [facility] Neutrophils/100 WBC (Bld) 80.6 % [facility] Nucleated RBC (Bld) [#/Vol] <0.01 k/uL [facility] Nucleated RBC/100 WBC (Bld) [Ratio] 0.0 /100 WBC [facility] Platelet mean volume (Bld) [Entitic vol] 10.8 fL 9.0 - 12.7 fL [facility] Platelets (Bld) [#/Vol] 323 10*3/uL 150 - 400 k/uL [facility] RBC (Bld) [#/Vol] 2.79 10*6/uL Low 4.20 - 6.0 0 m/uL [facility] WBC (Bld) [#/Vol] 11.51 10*3/uL High 3.70 - 11 .00 k/uL [facility] Absolute lymphocyte countOrd ered By: Dr. Crespo on 09-09-2022 Lymphocytes Auto (Unsp spec) [#/Vol] 0.55 10*3/uL 0.83-4.51 [facility] Basophil percentageOrdered B y: Dr. Crespo on 09-09-2022 Basophils/100 WBC (Bld) 0.5 % 0-1 [facility] Eosinophils/100 WBC (Bld) 8.0 % 0-5 [facility] Neutrophils (Bld) [#/Vol] 3.7 10*3/uL 2.0-7.7 [facility] Neutrophils/100 WBC (Bld) 67.3 % 47-70 [facility] WBC (Bld) [#/Vol] 5.5 10*3/uL 4.4-11.0 [facility] Blood erythrocytes count (nu mber/volume)Ordered By: Dr. Crespo on 09-09-2022 RBC (Bld) [#/Vol] 2.34 10*6/uL 4.6-6.2 [facility] Blood hemoglobin measurement (mass/volume)Ordered By: Dr. Crespo on 09-09-2022 Hemoglobin (Bld) [Mass/Vol] 7.6 g/dL 13.0-16.5 [facility] Blood lymphocytes/100 leukoc ytesOrdered By: Dr. Crespo on 09-09-2022 Lymphocytes/100 WBC (Bld) 10.0 % 19-41 [facility] Blood manual differential co mment interpretation (narrative result)Ordered By: Dr. Crespo on 09-09-2022 Manual differential comment Kamaljit (Bld) [Interp] SCANNED [facility] Comment on above: LYMPHOPENIA NOTED Blood monocytes/100 leukocyt esOrdered By: Dr. Crespo on 09-09-2022 Monocytes/100 WBC (Bld) 13.8 % 0-10 [facility] Blood platelet mean volumeOr dered By: Dr. Crespo on 09-09-2022 Platelet mean volume (Bld) [Entitic vol] 9.9 fL 6.2-12.0 [facility] Determination of erythrocyte mean corpuscular volume (MCV)Ordered By: Dr. Crespo on 09-09-2022 MCV (RBC) [Entitic vol] 104.3 fL 80-94 [facility] Hematocrit Auto (Bld) [Volum e fraction]Ordered By: Dr. Crespo on 09-09-2022 Hematocrit (Bld) [Volume fraction] 24.4 % 40-54 [facility] Laboratory - Hematology and Cell countsOrdered By: Dr. Crespo on 09-09-2022 Anisocytosis Ql (Bld) 1+ [facility] Erythrocyte distribution width (RBC) [Entitic vol] 67.8 fL 35.1-43.9 [facility] Erythrocyte distribution width (RBC) [Ratio] 17.7 % 11.6-14.6 [facility] Immature granulocytes/100 WBC (Bld) 0.400 % 0.0-0.9 [facility] Comment on above: IG% - Immature Granu locytes (promyelocytes, myelocytes and metamyelocytes) > 1% indicates that a LEFT SHIFT is Present. MCH (RBC) [Entitic mass] 32.5 pg 27.0-32.0 [facility] Nucleated RBC/100 WBC (Bld) [Ratio] 0 % 0-5 [facility] MCHC Auto (RBC) [Mass/Vol]Or dered By: Dr. Crespo on 09-09-2022 MCHC (RBC) [Mass/Vol] 31.1 g/dL 32-36 [facility] Macrocytes detectionOrdered By: Dr. Crespo on 09-09-2022 Macrocytes Ql (Bld) 1+ [facility] No Panel InformationOrdered By: Dr. Hagen on 09-09-2022 D-Dimer Quantitative (PE/DVT) 3.21 FEU/ug/m 0.27-0.49 [facility] Comment on above: D-Dimer ELEVATED (>0 .49): Additional studies and clinicalassessments are indicated to conclude diagnosis of:Deep Vein Thrombosis (DVT) or Pulmonary Embolism (PE)CRITICAL VALUE VERIFIED. CALLED TO [id number]/17/23 [id number] Leslie Proctor.RESULTS READ BACK BY SAME . Platelets bldOrdered By: Dr. Crespo on 09-09-2022 Platelets (Bld) [#/Vol] 212 10*3/uL 150-450 [facility] Basophil percentageOrdered B y: Dr. Crespo on 09-08-2022 Chloride [Moles/Vol] 116 mmol/L 98-107 [facility] Glucose [Mass/Vol] 103 mg/dL 74-106 [facility] Comment on above: Fasting Glucose resu lt from 100 to 125 mg/dL suggests IMPAIRED HOMEOSTASIS per A.D.A. criteria. Potassium [Moles/Vol] 3.7 mmol/L 3.5-5.1 [facility] Sodium [Moles/Vol] 145 mmol/L 136-145 [facility] Laboratory - Chemistry and C hemistry - challengeOrdered By: Dr. Crespo on 09-08-2022 CO2 [Moles/Vol] 26.0 mmol/L 21.0-32.0 [facility] Urea nitrogen/Creatinine [Mass ratio] 3.1 mg/mg 10-20 [facility] No Panel InformationOrdered By: Dr. Crespo on 09-08-2022 Estimated Creatinine Clearance Calc 69.96 ml/min [facility] Estimated GFR (MDRD) Amer 155 mL/min >60 [facility] Comment on above: GFR Calc Estimated GFR (MDRD) Non-Af Amer 128 mL/min >60 [facility] Comment on above: Non- GFR Calc Serum or plasma calcium reid urement (mass/volume)Ordered By: Dr. Crespo on 09-08-2022 Calcium [Mass/Vol] 8.2 mg/dL 8.5-10.1 [facility] Serum or plasma creatinine m easurement (mass/volume)Ordered By: Dr. Crespo on 09-08-2022 Creatinine [Mass/Vol] 0.65 mg/dL 0.70-1.30 [facility] Comment on above: The validity of the calculated GFR & GFRAA in patients over 70 years has not been determined. Clinical correlation is essential. Serum or plasma urea nitroge n measurement (mass/volume)Ordered By: Dr. Crespo on 09-08-2022 Urea nitrogen [Mass/Vol] 2 mg/dL 7-18 [facility] Thin prep Papanicolaou smear with manual screeningOrdered By: Dr. Crespo on 09-08-2022 Thin prep Papanicolaou smear with manual screening 3 5-15 [facility] Thin prep Papanicolaou smear with manual screeningOrdered By: Dr. Crespo on 09-06-2022 Thin prep Papanicolaou smear with manual screening 1+ [facility] Laboratory - CoagulationOrde red By: Dr. Corbin on 09-04-2022 aPTT Coag (Bld) [Time] 40.0 s 24.1-36.2 [facility] Basophil percentageOrdered B y: Dr. Ramos on 09-03-2022 Bilirubin [Mass/Vol] 0.70 mg/dL 0.20-1.00 [facility] Comment on above: For patients on eltr ombopag therapy, use of Dimension [place] TBIL is not recommended. Protein [Mass/Vol] 5.6 g/dL 6.4-8.2 [facility] EP PanelOrdered By: Dr. Tiffanie paez on 09-03-2022 Gastrointestinal pathogens panel DEMARIO+probe (Stl) [facility] Laboratory - Chemistry and C hemistry - challengeOrdered By: Dr. Ramos on 09-03-2022 ALP [Catalytic activity/Vol] 72 U/L 45-117 [facility] ALT [Catalytic activity/Vol] 16 U/L 16-61 [facility] Globulin (S) [Mass/Vol] 3.0 g/dL 2.2-4.2 [facility] No Panel InformationOrdered By: Dr. Corbin on 09-03-2022 Troponin I High Sensitivity 3730 pg/mL 3.0-78.0 [facility] Comment on above: Critical Result(s) C alled at: 21:16:59 09/03/2022 by: Nadine Pltat. Results read back by same. Please Note: New Test Units and Gender Specific Reference Ranges. For more information see Policy Stat Procedure [place] High Sensitivity Troponin (TNIH) and attachments. Serum or plasma albumin reid urement (mass/volume)Ordered By: Dr. Ramos on 09-03-2022 Albumin [Mass/Vol] 2.6 g/dL 3.2-5.0 [facility] Serum or plasma albumin/glob ulin mass ratioOrdered By: Dr. Ramos on 09-03-2022 Albumin/Globulin [Mass ratio] 0.9 {ratio} 0.9-2.4 [facility] Stool lactoferrin detection by immunoassayOrdered By: Dr. Holguin on 09-03-2022 Lactoferrin IA Ql (Stl) [facility] Thin prep Papanicolaou smear with manual screeningOrdered By: Dr. Ramos on 09-03-2022 Thin prep Papanicolaou smear with manual screening 20 U/L 15-37 [facility] Whole blood hemoglobin A1c/t otal hemoglobin ratio (mass fraction)Ordered By: Dr. Ramos on 09-03-2022 HbA1c (Bld) [Mass fraction] % 3.8-5.6 [facility] Comment on above: Normal < 5.7 % Predi abetic 5.7 - 6.4 % Diabetic >or= 6.5 % Please note range changes. Basophil percentageOrdered B y: Dr. Ramso on 09-02-2022 Basophil percentage 3.7 mg/dL 2.5-4.9 [facility] Direct bilirubinOrdered By: Dr. Segal on 09-02-2022 Bilirubin.direct [Mass/Vol] 0.18 mg/dL 0.00-0.30 [facility] INR in Blood by Coagulation assayOrdered By: Dr. Segal on 09-02-2022 INR Coag (Bld) [Relative time] 1.2 {INR} [facility] Laboratory - Chemistry and C hemistry - challengeOrdered By: Dr. Ramos on 09-02-2022 Magnesium [Mass/Vol] 2.2 mg/dL 1.6-2.6 [facility] Laboratory - CoagulationOrde red By: Dr. Segal on 09-02-2022 PT Coag (PPP) [Time] 14.4 s 11.7-14.9 [facility] Serum procalcitonin measurem entOrdered By: Dr. Ramos on 09-02-2022 Procalcitonin [Mass/Vol] 0.18 ng/mL 0.00-0.09 [facility] Comment on above: A procalcitonin (PCT [...] Basophil, Absolute 0.0 10 3/mcL Normal 0.0-0.3 [facility] ([place]) Comment on above: Performed By: #### G , BMP #### [address] [address] Basophils/100 WBC (Bld) 0.7 % Normal 0.0-2.5 [facility] ([place]) Comment on above: Performed By: #### G , BMP #### [address] [address] Eosinophil, Absolute 0.6 10 3/mcL Normal 0.0-0.7 [facility] ([place]) Comment on above: Performed By: #### G , BMP #### [address] [address] Eosinophils/100 WBC (Bld) 7.7 % High 0.0-6.0 [facility] ([place]) Comment on above: Performed By: #### G , BMP #### [address] [address] Lymphocyte, Absolute 0.9 10 3/mcL Normal 0.9-4.3 [facility] ([place]) Comment on above: Performed By: #### G , BMP #### [address] [address] Lymphocytes/100 WBC (Bld) 11.6 % Low 20.0-40.0 [facility] ([place]) Comment on above: Performed By: #### G FR, BMP #### [address] [address] Monocyte, Absolute 1.0 10 3/mcL Normal 0.1-1.4 [facility] ([place]) Comment on above: Performed By: #### G FR, BMP #### [address] [address] Monocytes/100 WBC (Bld) 13.5 % High 2.0-13.0 [facility] ([place]) Comment on above: Performed By: #### G FR, BMP #### [address] [address] Neutrophils/100 WBC (Bld) 66.5 % Normal 50.0-75.0 [facility] ([place]) Comment on above: Performed By: #### Fannie FR, BMP #### [address] [address] .GFRon 01-27-2022 GFR >60 Normal [facility] ([place]) Comment on above: Result Comment: GFR Population [...] 15 mL/min/1.73 square meters Performed By: #### G FR, BMP #### [address] [address] GFR Non- >60 Normal [facility] ([place]) Comment on above: Result Comment: GFR Population [...] Performed By: #### Fannie HARPER, BMP #### [address] [address] .MDWon 01-27-2022 Monocyte Distribution Width Not performed Normal 0.00-20.00 [facility] ([place]) Comment on above: Result Comment: MDW testing performed only on adult ER patients between the ages of 18-89 years. Performed By: #### Fannie HARPER, BMP #### [address] [address] .NEUABSon 01-27-2022 Neutrophil, Absolute 5.0 10 3/mcL Normal 2.3-8.1 [facility] ([place]) Comment on above: Performed By: #### Fannie HARPER, BMP #### [place] [address] BMPon 01-27-2022 BUN/Creatinine Ratio 16.9 ratio Normal 10.0-22.0 [facility] ([place]) Comment on above: Performed By: #### Fannie HARPER, BMP #### [address] [address] Calcium [Mass/Vol] 10.0 mg/dL Normal 8.7-10.4 [facility] ([place]) Comment on above: Performed By: #### Fannie HARPER, BMP #### [address] [address] Chloride [Moles/Vol] 108 mmol/L Normal 98-110 [facility] ([place]) Comment on above: Performed By: #### Fannie HARPER, BMP #### [address] [address] CO2 [Moles/Vol] 28 mmol/L Normal 22-32 [facility] ([place]) Comment on above: Performed By: #### Fanine HARPER, BMP #### [address] [address] Creatinine [Mass/Vol] 0.89 mg/dL Normal 0.60-1.40 [facility] ([place]) Comment on above: Performed By: #### Fannie HARPER, BMP #### [address] [address] Electrolyte Balance 6.0 mEq/L Normal 4.0-15.0 Formerly [facility] ([place]) Comment on above: Performed By: #### Fannie HARPER, BMP #### [place] [id number] Glucose [Mass/Vol] 106 mg/dL Normal 82-115 [facility] ([place]) Comment on above: Performed By: #### Fannie HARPER, BMP #### [place] [id number] Potassium [Moles/Vol] 4.3 mmol/L Normal 3.5-5.0 Formerly [facility] ([place] Comment on above: Performed By: #### Fannie HARPER, BMP #### [place] [id number] Sodium [Moles/Vol] 142 mmol/L Normal 136-145 [facility] ([place] Comment on above: Performed By: #### Fannie HARPER, BMP #### [place] [id number] Urea nitrogen [Mass/Vol] 15.0 mg/dL Normal 8.0-22.0 Formerly [facility] ([place]) Comment on above: Performed By: #### Fannie HARPER, BMP #### [address] [address] [employer]Con 01-27-2022 Erythrocyte distribution width (RBC) [Ratio] 13.8 % Normal 11.5-15.5 [facility]ly [facility] ([place] Comment on above: Performed By: #### Fannie HARPER, BMP #### [address] [address] Hematocrit (Bld) [Volume fraction] 41.2 % Normal 40.0-52.0 [facility] ([place] Comment on above: Performed By: #### Fannie HARPER, BMP #### [place] [address] Hgb 14.1 G/dL Normal 13.0-17.5 [facility] ([place] Comment on above: Performed By: #### Fannie HARPER, BMP #### [place] [address] MCH (RBC) [Entitic mass] 34.8 pg High 27.0-33.0 [facility] ([place] Comment on above: Performed By: #### Fannie HARPER, BMP #### [place] [address] MCHC 34.3 G/dL Normal 32.0-36.0 [facility] ([place] Comment on above: Performed By: #### Fannie HARPER, BMP #### [place] [address] MCV (RBC) [Entitic vol] 101.7 fL High 81.0-100.0 [facility] ([place] Comment on above: Performed By: #### Fannie HARPER, BMP #### [place] [address] Platelet 236 10 3/mcL Normal 150-450 [facility] ([place] Comment on above: Performed By: #### Fannie HARPER, BMP #### [place] [address] Platelet mean volume (Bld) [Entitic vol] 8.1 fL Normal 6.4-10.5 [facility] ([place] Comment on above: Performed By: #### Fannie HARPER, BMP #### [place] [address] RBC 4.05 10 6/mcL Low 4.50-6.00 [facility] ([place] Comment on above: Performed By: #### Fannie HARPER, BMP #### [place] [address] WBC 7.4 10 3/mcL Normal 4.5-10.8 [facility] ([place] Comment on above: Performed By: #### G FR, BMP #### [place] [address] LABORATORYOrdered By: SYSTEM SYSTEM on 01-27-2022 Basophils (Bld) [#/Vol] 0.0 103/mcL Invalid Interpretation Code 0.0 - 0.3 10^3/mcL AH Workflow SS Basophils/100 WBC (Bld) 0.7 % Invalid Interpretation Code 0.0 - 2.5 % AH Workflow SS Calcium [Mass/Vol] 10.0 mg/dL Invalid [...] Interpretation Code 11.5 - 15.5 % AH Workflow SS GFR/1.73 sq M.predicted among blacks [...] Invalid Interpretation Code 13.0 - 17.5 G/dL Workflow SS Lymphocytes (Bld) [#/Vol] 0.9 103/mcL Invalid Interpretation Code 0.9 - 4.3 10^3/mcL Workflow SS Lymphocytes/100 WBC (Bld) 11.6 % Invalid Interpretation Code 20.0 - 40.0 % Workflow SS MCH (RBC) [Entitic mass] 34.8 pg Invalid Interpretation Code 27.0 - 33.0 pg Workflow SS MCHC 34.3 G/dL Invalid Interpretation Code 32.0 - 36.0 G/dL Workflow SS MCV (RBC) [Entitic vol] 101.7 fL Invalid Interpretation Code 81.0 - 100.0 fL Workflow SS Monocyte distribution width Auto (Bld) [Entitic vol] Not Performed 1 *NA* (01/27/22 6:24 AM) Invalid Interpretation Code 0.00 - 20.00 Hematology S Comment on above: Result Comment: MDW testing performed only on adult ER patients between the ages of 18-89 years. Monocytes (Bld) [#/Vol] 1.0 103/mcL Invalid Interpretation Code 0.1 - 1.4 10^3/mcL Workflow SS Monocytes/100 WBC (Bld) 13.5 % Invalid Interpretation Code 2.0 - 13.0 % Workflow SS Neutrophils (Bld) [#/Vol] 5.0 103/mcL Invalid Interpretation Code 2.3 - 8.1 10^3/mcL Workflow SS Neutrophils/100 WBC (Bld) 66.5 % Invalid Interpretation Code 50.0 - 75.0 % Workflow SS Platelet mean volume (Bld) [Entitic vol] 8.1 fL Invalid Interpretation Code 6.4 - 10.5 fL Workflow SS Platelets (Bld) [#/Vol] 236 103/mcL Invalid Interpretation Code 150 - 450 10^3/mcL Workflow SS Potassium [Moles/Vol] 4.3 mmol/L Invalid Interpretation Code 3.5 - 5.0 mEq/L ADM SS RBC (Bld) [#/Vol] 4.05 106/mcL Invalid Interpretation Code 4.50 - 6.00 10^6/mcL Workflow SS Sodium [Moles/Vol] 142 mmol/L Invalid Interpretation Code 136 - 145 mEq/L ADM SS Urea nitrogen [Mass/Vol] 15.0 mg/dL Invalid Interpretation Code 8.0 - 22.0 mg/dL ADM SS Urea nitrogen/Creatinine [Mass ratio] 16.9 ratio Invalid Interpretation Code 10.0 - 22.0 ratio AH ADM SS WBC 7.4 103/mcL Invalid Interpretation Code 4.5 - 10.8 10^3/mcL AH Workflow SS LABORATORYOrdered By: SYSTEM SYSTEM on 12-01-2021 Basophils (Bld) [#/Vol] 0.10 103/mcL Invalid Interpretation Code 0.00 - 0.27 10^3/mcL AH Remisol SS Basophils/100 WBC (Bld) 1.0 % Invalid Interpretation Code 0.0 - 2.5 % AH Remisol SS Calcium [Mass/Vol] 9.5 mg/dL Invalid Interpretation Code 8.7 - 10.4 mg/dL AH ADM SS Chloride [Moles/Vol] 105 mmol/L Invalid Interpretation Code 98 - 110 mEq/L AH ADM SS CO2 [Moles/Vol] 28 mmol/L Invalid Interpretation Code 22 - 32 mEq/L AH ADM SS Creatinine [Mass/Vol] 0.79 mg/dL Invalid Interpretation Code 0.60 - 1.40 mg/dL AH ADM SS Electrolyte Balance 5.0 mEq/L Invalid Interpretation Code 4.0 - 15.0 mEq/L AH ADM SS Eosinophils (Bld) [#/Vol] 0.70 103/mcL Invalid Interpretation Code 0.00 - 0.65 10^3/mcL AH Remisol SS Eosinophils/100 WBC (Bld) 9.3 % [...] Barometric Pressure 742 mm[Hg] Invalid Interpretation Code AH Auto Chem SS Base excess Calc (Bld) [Moles/Vol] 1.0 mmol/L Invalid Interpretation Code AH Auto Chem SS CO2 (Bld) [Partial pressure] 33.4 mm[Hg] Invalid Interpretation Code 32.0 - 46.0 mm Hg Auto Chem SS CO2 [Moles/Vol] 25.0 mmol/L Invalid Interpretation Code 22.0 - 30.0 mmol/L Auto Chem SS HCO3 (Bld) [Moles/Vol] 23.9 mmol/L Invalid Interpretation Code 21.0 - 29.0 mmol/L Auto Chem SS Oxygen (Bld) [Partial pressure] 78.0 mm[Hg] Invalid Interpretation Code 74.0 - 108.0 mm Hg Auto Chem SS pH (Bld) 7.473 [pH] [...] 1.40 mg/dL AH ADM SS Electrolyte Balance 3.0 mEq/L Invalid Interpretation Code 4.0 - 15.0 mEq/L AH ADM SS Electrolyte Balance 4.0 mEq/L Invalid Interpretation Code 4.0 - 15.0 mEq/L AH ADM SS Erythrocyte distribution width (RBC) [Ratio] 13.1 % Invalid Interpretation Code 11.5 - 15.5 % AH Remisol SS Erythrocyte distribution width [...] 13.0 - 17.5 G/dL AH Remisol SS Hemoglobin (Bld) [Mass/Vol] 14.0 G/dL Invalid Interpretation Code 13.0 - 17.5 G/dL Remisol SS Lymphocytes (Bld) [#/Vol] 0.80 103/mcL Invalid Interpretation Code 0.90 - 4.32 10^3/mcL Remisol SS Lymphocytes (Bld) [#/Vol] 0.90 103/mcL [...] Invalid Interpretation Code 40 - 59 mg/dL AH ADM SS Cholesterol in LDL [Mass/Vol] 84 mg/dL Invalid Interpretation Code 0 - 129 mg/dL AH ADM SS Triglyceride [Mass/Vol] 158 mg/dL Invalid Interpretation Code 3 - 149 mg/dL AH ADM SS LABORATORYOrdered By: Zuleika Heredia on 11-30-2021 Natriuretic peptide.B prohormone N-Terminal [Mass/Vol] 1792 pg/mL Invalid Interpretation Code 0 - 1800 pg/mL AH Auto Chem SS Laboratory - Chemistry and C hemistry - challengeOrdered By: SYSTEM SYSTEM on 11-30-2021 CO2 [Moles/Vol] 26 mmol/L Invalid Interpretation Code 22 - 32 mEq/L AH ADM SS Sodium [Moles/Vol] 138 mmol/L Invalid Interpretation Code 136 - 145 mEq/L AH ADM SS Laboratory - Hematology and Cell countsOrdered By: SYSTEM SYSTEM on 11-30-2021 Basophils (Bld) [#/Vol] 0.10 [...] 6.00 10^6/mcL AH Remisol SS LABORATORYOrdered By: [employer] [place] SYSTEM on 11-29-2021 Albumin BCP dye [Mass/Vol] 3.3 G/dL Invalid Interpretation Code 3.2 - 4.8 G/dL AH ADM SS Albumin/Globulin [Mass ratio] 0.9 {ratio} Invalid Interpretation Code 0.9 - 1.6 ratio AH ADM SS ALP [Catalytic activity/Vol] 141 U/L Invalid Interpretation Code 38 - 126 U/L AH ADM SS ALT No additional P-5'-P [Catalytic activity/Vol] 31 U/L Invalid Interpretation Code 12 - 55 U/L AH ADM SS AST [Catalytic activity/Vol] 52 U/L Invalid Interpretation Code 8 - 34 U/L AH ADM SS Bilirubin [Mass/Vol] 0.60 mg/dL Invalid [...] Code 3 - 149 mg/dL ADM SS GFR 78 ml/min/1.73sqm Invalid Interpretation [...] Time Vital Sign Value Performing Clinician Facility 02-26-2025 14:01-040 Body height 177.[address] Valeriano Beasley MD Work Phone: [facility] 02-26-2025 14:01-0400 Body mass index (BMI) [Ratio] 30.9 kg/m2 Dr. Valeriano Beasley MD Work Phone: [facility] 02-26-2025 14:01-0400 Body weight 97.[address] Valeriano Beasley MD Work Phone: [facility] 02-26-2025 14:01-0400 Diastolic blood pressure 70 mm[Hg] Dr. Valeriano Beasley MD Work Phone: [facility] 02-26-2025 14:01-0400 Heart rate 70 /min Dr. Valeriano Beasley MD Work Phone: [facility] 02-26-2025 14:01-0400 SaO2% (BldA) [Mass fraction] 93 % Dr. Valeriano Beasley MD Work Phone: [facility] 02-26-2025 14:01-0400 Systolic blood pressure 116 mm[Hg] Dr. Valeriano Beasley MD Work Phone: [facility] 01-30-2025 11:35-0400 Body mass index (BMI) [Ratio] 30.9 kg/m2 Valeriano Beasley MD Work Phone: [facility] 01-30-2025 11:35-0400 Body weight 96.8 kg Valeriano Beasley MD Work Phone: [facility] 01-30-2025 11:35-0400 Diastolic blood pressure 64 mm[Hg] Valeriano Beasley MD Work Phone: [facility] 01-30-2025 11:35-0400 Heart rate 68 /min Valeriano Beasley MD Work Phone: [facility] 01-30-2025 11:35-0400 Respiratory rate 16 /min Valeriano Beasley MD Work Phone: [facility] 01-30-2025 11:35-0400 Systolic blood pressure 104 mm[Hg] Valeriano Beasley MD Work Phone: [facility] 01-29-2025 11:08-0400 Body height 177.[address] Valeriano Beasley MD Work Phone: 7(125)345-428904 [place] [address] 01-29-2025 11:08-0400 Body mass index (BMI) [Ratio] 30.4 kg/m2 Dr. Valeriano Beasley MD Work Phone: 5(553)942-431403 [place] [address] 01-29-2025 11:08-0400 Body temperature 98.3 [degF] Dr. Valeriano Beasley MD Work Phone: 8(420)828-956303 [place] [address] 01-29-2025 11:08-0400 Body weight 96.[address] Valeriano Beasley MD Work Phone: 9(272)805-921403 [place] [address] 01-29-2025 11:08-0400 Diastolic blood pressure 65 mm[Hg] Dr. Valeriano Beasley MD Work Phone: 4(398)434-284803 [place] [address] 01-29-2025 11:08-0400 Heart rate 9 /min Dr. Valeriano Beasley MD Work Phone: 7(829)270-835003 [place] [address] 01-29-2025 11:08-0400 Respiratory rate 16 /min Dr. Valeriano Beasley MD Work Phone: 3(309)843-987003 [place] [address] 01-29-2025 11:08-0400 SaO2% (BldA) [Mass fraction] 96 % Dr. Valeriano Beasley MD Work Phone: 6(306)132-681803 [place] [address] 01-29-2025 11:08-0400 Systolic blood pressure 100 mm[Hg] Dr. Valeriano Beasley MD Work Phone: 6(018)553-365803 [place] [address] 01-25-2025 08:23-0400 Body temperature 98.4 [degF] Dr. Valeriano Beasley MD Work Phone: 3(891)435-348703 [place] [address] 01-25-2025 08:23-0400 Diastolic blood pressure 85 mm[Hg] Dr. Valeriano Beasley MD Work Phone: 8(258)683-417303 [place] [address] 01-25-2025 08:23-0400 Heart rate 68 /min Dr. Valeriano Beasley MD Work Phone: 2(786)803-787303 [place] [address] 01-25-2025 08:23-0400 Respiratory rate 14 /min Dr. Valeriano Beasley MD Work Phone: 2(592)543-131803 [place] [address] 01-25-2025 08:23-0400 SaO2% (BldA) [Mass fraction] 95 % Dr. Valeriano Beasley MD Work Phone: 4(366)555-153903 [place] [address] 01-25-2025 08:23-0400 Systolic blood pressure 138 mm[Hg] Dr. Valeriano Beasley MD Work Phone: 3(256)490-835003 [place] [address] 01-25-2025 03:48-0400 Body mass index (BMI) [Ratio] 30.5 kg/m2 Dr. Valeriano Beasley MD Work Phone: 9(814)093-790903 [place] [address] 01-25-2025 03:48-0400 Body weight 96.[address] Valeriano Beasley MD Work Phone: 1(746)706-845703 [place] [address] 01-24-2025 10:39-0400 Body height 177.[address] Valeriano Beasley MD Work Phone: 3(788)563-236303 [place] [address] 01-23-2025 21:38-0400 Body temperature 98.1 [degF] Dr. Valeriano Beasley MD Work Phone: 8(600)513-631403 [place] [address] 01-23-2025 21:38-0400 Diastolic blood pressure 87 mm[Hg] Dr. Valeriano Beasley MD Work Phone: 0(512)862-169103 [place] [address] 01-23-2025 21:38-0400 Heart rate 70 /min Dr. Valeriano Beasley MD Work Phone: 9(317)692-915303 [place] [address] 01-23-2025 21:38-0400 Respiratory rate 16 /min Dr. Valeriano Beasley MD Work Phone: 4(586)418-911803 [place] [address] 01-23-2025 21:38-0400 SaO2% (BldA) [Mass fraction] 97 % Dr. Valeriano Beasley MD Work Phone: 0(708)191-323003 [place] [address] 01-23-2025 21:38-0400 Systolic blood pressure 155 mm[Hg] Dr. Valeriano Beasley MD Work Phone: 8(722)034-889603 [place] [address] 01-23-2025 19:30-0400 Body height 177.[address] Valeriano Beasley MD Work Phone: [facility] 01-23-2025 19:30-0400 Body mass index (BMI) [Ratio] 29.9 kg/m2 Dr. Valeriano Beasley MD Work Phone: [facility] 01-23-2025 19:30-0400 Body weight 94.[address] Valeriano Beasley MD Work Phone: [facility] 01-01-2025 09:50-0400 Body mass index (BMI) [Ratio] 31.13 kg/m2 Suzanna Dawson PA-C Work Phone: [facility] 01-01-2025 09:50-0400 Body temperature 97.81 [degF] Suzanna Dawson PA-C Work Phone: [facility] 01-01-2025 09:50-0400 Body weight 97.52 kg Suzanna Dawson PA-C Work Phone: [facility] 01-01-2025 09:50-0400 Diastolic blood pressure 80 mm[Hg] Suzanna Dawson PA-C Work Phone: [facility] 01-01-2025 09:50-0400 Heart rate 72 /min Suzanna Dawson PA-C Work Phone: [facility] 01-01-2025 09:50-0400 Respiratory rate 18 /min Suzanna Dawson PA-C Work Phone: [facility] 01-01-2025 09:50-0400 SaO2% (BldA) [Mass fraction] 96 % Suzanna Dawson PA-C Work Phone: [facility] 01-01-2025 09:50-0400 Systolic blood pressure 122 mm[Hg] Suzanna Dawson PA-C Work Phone: [facility] 12-30-2024 09:35-0400 Body height [address] Valeriano Beasley MD Work Phone: [facility] 12-30-2024 09:35-0400 Body weight 95.[address] Valeriano Beasley MD Work Phone: 0(615)989-389303 [place] [address] 12-30-2024 08:00-0400 Body temperature 98.1 [degF] Dr. Valeriano Beasley MD Work Phone: 2(391)562-079703 [place] [address] 12-30-2024 08:00-0400 Diastolic blood pressure 85 mm[Hg] Dr. Valeriano Beasley MD Work Phone: 8(245)108-410003 [place] [address] 12-30-2024 08:00-0400 Heart rate 73 /min Dr. Valeriano Beasley MD Work Phone: 9(828)150-151503 [place] [address] 12-30-2024 08:00-0400 Respiratory rate 18 /min Dr. Valeriano Beasley MD Work Phone: 1(660)130-805303 [place] [address] 12-30-2024 08:00-0400 SaO2% (BldA) [Mass fraction] 95 % Dr. Valeriano Beasley MD Work Phone: 6(587)851-735503 [place] [address] 12-30-2024 08:00-0400 Systolic blood pressure 159 mm[Hg] Dr. Valeriano Beasley MD Work Phone: 2(982)280-126203 [place] [address] 12-30-2024 05:56-0400 Body mass index (BMI) [Ratio] 30.2 kg/m2 Dr. Valeriano Beasley MD Work Phone: 3(103)852-501503 [place] [address] 12-29-2024 11:00-0400 Inhaled oxygen flow rate 2 L/min Dr. Valeriano Beasley MD Work Phone: 6(212)258-012403 [place] [address] 12-29-2024 09:00-0400 Inhaled oxygen concentration 30 % Dr. Valeriano Beasley MD Work Phone: 1(522)819-055103 [place] [address] 12-27-2024 15:15-0400 Diastolic blood pressure 67 mm[Hg] Dr. Valeriano Beasley MD Work Phone: 3(594)909-483703 [place] [address] 12-27-2024 15:15-0400 Heart rate 60 /min Dr. Valeriano Beasley MD Work Phone: 7(866)823-484403 [place] [address] 12-27-2024 15:15-0400 Respiratory rate 14 /min Dr. Valeriano Beasley MD Work Phone: 4(682)064-845704 [place] [address] 12-27-2024 15:15-0400 SaO2% (BldA) [Mass fraction] 97 % Dr. Valeriano Beasley MD Work Phone: 2(103)156-194203 [place] [address] 12-27-2024 15:15-0400 Systolic blood pressure 100 mm[Hg] Dr. Valeriano Beasley MD Work Phone: 5(232)592-350403 [place] [address] 12-27-2024 14:58-0400 Body temperature 99 [degF] Dr. Valeriano Beasley MD Work Phone: 6(457)201-737803 [place] [address] 12-27-2024 13:42-0400 Inhaled oxygen concentration 35 % Dr. Valeriano Beasley MD Work Phone: 0(039)861-273703 [place] [address] 12-27-2024 13:13-0400 Body height 177.[address] Valeriano Beasley MD Work Phone: 8(869)023-276303 [place] [address] 12-27-2024 13:13-0400 Body mass index (BMI) [Ratio] 30 kg/m2 Dr. Valeriano Beasley MD Work Phone: 5(253)388-007803 [place] [address] 12-27-2024 13:13-0400 Body weight 95.[address] Valeriano Beasley MD Work Phone: 5(121)332-167003 [place] [address] 12-23-2024 14:11-0400 Body mass index (BMI) [Ratio] 30.14 kg/m2 Patria Khanna Jr., MD Work Phone: 6(024)035-666123 [place] [address] 12-23-2024 14:11-0400 Body weight 94.44 kg Patria Khanna Jr., MD Work Phone: 3(350)383-417423 [place] [address] 12-23-2024 14:11-0400 Diastolic blood pressure 82 mm[Hg] Patria Khanna Jr., MD Work Phone: 4(162)510-268688 [place] [address] 12-23-2024 14:11-0400 Heart rate 68 /min Patria Khanna Jr., MD Work Phone: 2(143)263-661223 [place] [address] 12-23-2024 14:11-0400 Respiratory rate 18 /min Patria Khanna Jr., MD Work Phone: [facility] 12-23-2024 14:11-0400 SaO2% (BldA) [Mass fraction] 94 % Patria Khanna Jr., MD Work Phone: [facility] 12-23-2024 14:11-0400 Systolic blood pressure 128 mm[Hg] Patria Khanna Jr., MD Work Phone: [facility] 11-05-2024 07:36-0400 Body mass index (BMI) [Ratio] 29.8 kg/m2 Dr. Valeriano Beasley MD Work Phone: [facility] 11-05-2024 07:36-0400 Body weight 94.[address] Valeriano Beasley MD Work Phone: [facility] 11-05-2024 07:36-0400 Diastolic blood pressure 72 mm[Hg] Dr. Valeriano Beasley MD Work Phone: 3(537)060-671804 [place] [address] 11-05-2024 07:36-0400 Heart rate 70 /min Dr. Valeriano Beasley MD Work Phone: 6(544)521-155304 [place] [address] 11-05-2024 07:36-0400 Respiratory rate 18 /min Dr. Valeriano Beasley MD Work Phone: [facility] 11-05-2024 07:36-0400 SaO2% (BldA) [Mass fraction] 95 % Dr. Valeriano Beasley MD Work Phone: [facility] 11-05-2024 07:36-0400 Systolic blood pressure 113 mm[Hg] Dr. Valeriano Beasley MD Work Phone: [facility] 11-01-2024 10:56-0400 Body mass index (BMI) [Ratio] 29.68 kg/m2 Ni Sauceda APRN.[employer] Work Phone: [facility] 11-01-2024 10:56-0400 Body weight 93 kg Ni Sauceda APRN.[employer] Work Phone: [facility] 11-01-2024 10:56-0400 Diastolic blood pressure 73 mm[Hg] Ni Sauceda APRN.[employer] Work Phone: [facility] 11-01-2024 10:56-0400 Systolic blood pressure 129 mm[Hg] Ni Sauceda APRN.[employer] Work Phone: [facility] 10-23-2024 13:09-0400 Body mass index (BMI) [Ratio] 29.97 kg/m2 Stephanie Masci DO Work Phone: [facility] 10-23-2024 13:09-0400 Body temperature 98.6 [degF] Stephanie Masci DO Work Phone: [facility] 10-23-2024 13:09-0400 Body weight 93.89 kg Stephanie Masci DO Work Phone: [facility] 10-23-2024 13:09-0400 Diastolic blood pressure 76 mm[Hg] Stephanie Masci DO Work Phone: [facility] 10-23-2024 13:09-0400 Heart rate 83 /min Stephanie Masci DO Work Phone: [facility] 10-23-2024 13:09-0400 SaO2% (BldA) [Mass fraction] 97 % Stephanie Masci DO Work Phone: [facility] 10-23-2024 13:09-0400 Systolic blood pressure 126 mm[Hg] Stephanie Masci DO Work Phone: [facility] 09-25-2024 14:07-0500 Body height 177 cm Stephanie Masci DO Work Phone: [facility] 09-25-2024 14:07-0500 Body mass index (BMI) [Ratio] 30.55 kg/m2 Stephanie Masci DO Work Phone: [facility] 09-25-2024 14:07-0500 Body temperature 98.8 [degF] Stephanie Masci DO Work Phone: [facility] 09-25-2024 14:07-0500 Body weight 95.71 kg Stephanie Masci DO Work Phone: [facility] 09-25-2024 14:07-0500 Diastolic blood pressure 83 mm[Hg] Stephanie Roy DO Work Phone: [facility] 09-25-2024 14:07-0500 Heart rate 79 /min Stephanie Jacksoni DO Work Phone: [facility] 09-25-2024 14:07-0500 SaO2% (BldA) [Mass fraction] 96 % Stephanie Roy DO Work Phone: [facility] 09-25-2024 14:07-0500 Systolic blood pressure 134 mm[Hg] Stephanie Jacksoni DO Work Phone: [facility] 09-19-2024 14:11-0500 Body height 177.[address] Valeriano Beasley MD Work Phone: 4(949)510-792604 [place] [address] 09-19-2024 14:11-0500 Body mass index (BMI) [Ratio] 29.9 kg/m2 Dr. Valeriano Beasley MD Work Phone: 8(004)204-093004 [place] [address] 09-19-2024 14:11-0500 Body weight 94.[address] Valeriano Beasley MD Work Phone: 3(975)245-171604 [place] [address] 09-19-2024 14:11-0500 Diastolic blood pressure 70 mm[Hg] Dr. Valeriano Beasley MD Work Phone: 9(057)439-455904 [place] [address] 09-19-2024 14:11-0500 Heart rate 63 /min Dr. Valeriano Beasley MD Work Phone: 8(437)438-102904 [place] [address] 09-19-2024 14:11-0500 SaO2% (BldA) [Mass fraction] 97 % Dr. Valeriano Beasley MD Work Phone: 6(645)213-787704 [place] [address] 09-19-2024 14:11-0500 Systolic blood pressure 130 mm[Hg] Dr. Valeriano Beasley MD Work Phone: 6(739)794-308704 [place] [address] 08-30-2024 15:08-0500 Body mass index (BMI) [Ratio] 30.57 kg/m2 Patria Khanna Jr., MD Work Phone: [facility] 08-30-2024 15:08-0500 Body weight 93.08 kg Patria Khanna Jr., MD Work Phone: [facility] 08-30-2024 15:08-0500 Diastolic blood pressure 84 mm[Hg] Patria Khanna Jr., MD Work Phone: [facility] 08-30-2024 15:08-0500 Heart rate 64 /min Patria Khanna Jr., MD Work Phone: [facility] 08-30-2024 15:08-0500 SaO2% (BldA) [Mass fraction] 95 % Patria Khanna Jr., MD Work Phone: [facility] 08-30-2024 15:08-0500 Systolic blood pressure 145 mm[Hg] Patria Khanna Jr., MD Work Phone: [facility] 08-19-2024 13:14-0500 Body mass index (BMI) [Ratio] 30.71 kg/m2 Amudha Pazhanisamy DO Work Phone: [facility] 08-19-2024 13:14-0500 Body weight 93.5 kg Amudha Pazhanisamy DO Work Phone: [facility] 08-19-2024 13:14-0500 Diastolic blood pressure 61 mm[Hg] Amudha Pazhanisamy DO Work Phone: [facility] 08-19-2024 13:14-0500 Heart rate 55 /min Amudha Pazhanisamy DO Work Phone: [facility] 08-19-2024 13:14-0500 SaO2% (BldA) [Mass fraction] 97 % Amudha Pazhanisamy DO Work Phone: [facility] 08-19-2024 13:14-0500 Systolic blood pressure 95 mm[Hg] Amudha Pazhanisamy DO Work Phone: [facility] 07-31-2024 19:01-0500 Body mass index (BMI) [Ratio] 31.13 kg/m2 Valeriano Beasley MD Work Phone: [facility] 07-31-2024 19:01-0500 Body weight 94.8 kg Valeriano Beasley MD Work Phone: [facility] 07-31-2024 19:01-0500 Diastolic blood pressure 74 mm[Hg] Valeriano Beasley MD Work Phone: [facility] 07-31-2024 19:01-0500 Heart rate 68 /min Valeriano Beasley MD Work Phone: [facility] 07-31-2024 19:01-0500 Respiratory rate 16 /min Valeriano Beasley MD Work Phone: [facility] 07-31-2024 19:01-0500 Systolic blood pressure 126 mm[Hg] Valeriano Beasley MD Work Phone: 2(148)861-638288 [place] [address] 07-18-2024 14:16-0500 Body temperature 98.5 [degF] Dr. Valeriano Beasley MD Work Phone: 5(969)251-917204 [place] [address] 07-18-2024 14:16-0500 Diastolic blood pressure 79 mm[Hg] Dr. Valeriano Beasley MD Work Phone: 9(113)261-864304 [place] [address] 07-18-2024 14:16-0500 Heart rate 73 /min Dr. Valeriano Beasley MD Work Phone: 8(304)260-69[address] [place] [address] 07-18-2024 14:16-0500 Respiratory rate 19 /min Dr. Valeriano Beasley MD Work Phone: 9(199)524-777404 [place] [address] 07-18-2024 14:16-0500 SaO2% (BldA) [Mass fraction] 96 % Dr. Valeriano Beasley MD Work Phone: 4(019)485-372904 [place] [address] 07-18-2024 14:16-0500 Systolic blood pressure 155 mm[Hg] Dr. Valeriano Beasley MD Work Phone: 4(747)220-422204 [place] [address] 07-18-2024 10:16-0500 Body mass index (BMI) [Ratio] 31.2 kg/m2 Dr. Valeriano Beasley MD Work Phone: 6(569)123-445704 [place] [address] 07-18-2024 10:16-0500 Body weight 98.[address] Valeriano Beasley MD Work Phone: [facility] 05-29-2024 12:54-0500 Body mass index (BMI) [Ratio] 30.54 kg/m2 Suzanna Dawson PA-C Work Phone: [facility] 05-29-2024 12:54-0500 Body temperature 97.2 [degF] Suzanna Dawson PA-C Work Phone: [facility] 05-29-2024 12:54-0500 Body weight 92.99 kg Suzanna Dawson PA-C Work Phone: [facility] 05-29-2024 12:54-0500 Diastolic blood pressure 56 mm[Hg] Suzanna Dawson PA-C Work Phone: [facility] 05-29-2024 12:54-0500 Heart rate 66 /min Suzanna Dawson PA-C Work Phone: [facility] 05-29-2024 12:54-0500 Respiratory rate 18 /min Suzanna Dawson PA-C Work Phone: [facility] 05-29-2024 12:54-0500 SaO2% (BldA) [Mass fraction] 95 % Suzanna Dawson PA-C Work Phone: [facility] 05-29-2024 12:54-0500 Systolic blood pressure 120 mm[Hg] Suzanna Dawson PA-C Work Phone: [facility] 05-01-2024 13:00-0400 Body height 174.5 cm Suzanna Dawson PA-C Work Phone: [facility] 05-01-2024 13:00-0400 Body mass index (BMI) [Ratio] 29.35 kg/m2 Suzanna Dawson PA-C Work Phone: [facility] 05-01-2024 13:00-0400 Body temperature 97.5 [degF] Suzanna Dawson PA-C Work Phone: [facility] 05-01-2024 13:00-0400 Body weight 89.36 kg Suzanna Dawson PA-C Work Phone: [facility] 05-01-2024 13:00-0400 Diastolic blood pressure 62 mm[Hg] Suzanna Dawson PA-C Work Phone: [facility] 05-01-2024 13:00-0400 Heart rate 77 /min Suzanna Dawson PA-C Work Phone: [facility] 05-01-2024 13:00-0400 Respiratory rate 18 /min Suzanna Dawson PA-C Work Phone: [facility] 05-01-2024 13:00-0400 SaO2% (BldA) [Mass fraction] 96 % Suzanna Dawson PA-C Work Phone: [facility] 05-01-2024 13:00-0400 Systolic blood pressure 100 mm[Hg] Suzanna Dawson PA-C Work Phone: [facility] 04-04-2024 11:42-0400 Body mass index (BMI) [Ratio] 31.02 kg/m2 Ni Sauceda APRN.[employer]OTHER[employer]PER Work Phone: [facility] 04-04-2024 11:42-0400 Body weight 92.53 kg Ni Sauceda APRN.[employer]OTHER[employer]PER Work Phone: [facility] 04-04-2024 11:42-0400 Diastolic blood pressure 84 mm[Hg] Ni Sauceda APRN.[employer]OTHER'[employer] HELPER Work Phone: [facility] 04-04-2024 11:42-0400 Heart rate 58 /min Ni Sauceda APRN.[employer]OTHER'[employer] HELPER Work Phone: [facility] 04-04-2024 11:42-0400 Respiratory rate 14 /min Ni Sauceda APRN.MOTHER'[employer] HELPER Work Phone: [facility] 04-04-2024 11:42-0400 Systolic blood pressure 155 mm[Hg] Ni Sauceda APRN.MOTHER'[employer] HELPER Work Phone: [facility] 01-01-2024 16:56-0400 Diastolic blood pressure 80 mm[Hg] Patria Khanna Jr., MD Work Phone: [facility] Comment on above: LT arm adult cuff sitting 01-01-2024 16:56-0400 Systolic blood pressure 142 mm[Hg] Patria Khanna Jr., MD Work Phone: [facility] Comment on above: LT arm adult cuff sitting 01-01-2024 15:40-0400 Body mass index (BMI) [Ratio] 31.38 kg/m2 Patria Khanna Jr., MD Work Phone: [facility] 01-01-2024 15:40-0400 Body weight 93.62 kg Patria Khanna Jr., MD Work Phone: [facility] 01-01-2024 15:40-0400 Heart rate 76 /min Patria Khanna Jr., MD Work Phone: [facility] 01-01-2024 15:40-0400 Respiratory rate 16 /min Patria Khanna Jr., MD Work Phone: [facility] 01-01-2024 15:40-0400 SaO2% (BldA) [Mass fraction] 96 % Patria Khanna Jr., MD Work Phone: [facility] 09-05-2023 10:46-0500 Body height 177.[address] Valeriano Beasley Work Phone: [facility] 09-05-2023 10:46-0500 Body mass index (BMI) [Ratio] 29.9 kg/m2 Dr. Valeriano Beasley Work Phone: [facility] 09-05-2023 10:46-0500 Body weight 94.[address] Valeriano Beasley Work Phone: [facility] 09-05-2023 10:46-0500 Diastolic blood pressure 86 mm[Hg] Dr. Valeriano Beasley Work Phone: [facility] 09-05-2023 10:46-0500 Heart rate 64 /min Dr. Valeriano Beasley Work Phone: [facility] 09-05-2023 10:46-0500 Respiratory rate 18 /min Dr. Valeriano Beasley Work Phone: [facility] 09-05-2023 10:46-0500 SaO2% (BldA) [Mass fraction] 95 % Dr. Valeriano Beasley Work Phone: [facility] 09-05-2023 10:46-0500 Systolic blood pressure 134 mm[Hg] Dr. Valeriano Beasley Work Phone: [facility] 09-01-2023 10:41-0500 Body mass index (BMI) [Ratio] 29.6 kg/m2 Dr. Valeriano Beasley Work Phone: [facility] 09-01-2023 10:41-0500 Body weight 93.[address] Valeriano Beasley Work Phone: [facility] 05-18-2023 10:39-0400 Body weight 91.76 kg Valeriano Beasley MD Work Phone: [facility] 05-18-2023 10:39-0400 Diastolic blood pressure 80 mm[Hg] Valeriano Beasley MD Work Phone: [facility] 05-18-2023 10:39-0400 Heart rate 58 /min Valeriano Beasley MD Work Phone: [facility] 05-18-2023 10:39-0400 SaO2% (BldA) [Mass fraction] 96 % Valeriano Beasley MD Work Phone: [facility] 05-18-2023 10:39-0400 Systolic blood pressure 122 mm[Hg] Valeriano Beasley MD Work Phone: [facility] 04-20-2023 12:38-0400 Diastolic blood pressure 81 mm[Hg] Valeriano Beasley MD Work Phone: [facility] 04-20-2023 12:38-0400 Heart rate 53 /min Valeriano Beasley MD Work Phone: [facility] 04-20-2023 12:38-0400 Systolic blood pressure 152 mm[Hg] Valeriano Beasley MD Work Phone: [facility] 04-20-2023 11:22-0400 Body height 174.6 cm Valeriano Beasley MD Work Phone: [facility] 04-20-2023 11:22-0400 Body weight 91.17 kg Valeriano Beasley MD Work Phone: [facility] 04-20-2023 11:22-0400 Respiratory rate 16 /min Valeriano Beasley MD Work Phone: 3(259)323-678088 [place] [address] 12-09-2022 11:00-0400 Body height 177.[address] Valeriano Beasley Work Phone: 2(816)688-554504 [place] [address] 12-09-2022 11:00-0400 Body mass index (BMI) [Ratio] 27.6 kg/m2 Dr. Valeriano Beasley Work Phone: 8(752)742-784704 [place] [address] 12-09-2022 11:00-0400 Body weight 87.[address] Valeriano Beasley Work Phone: 1(852)650-783503 [place] [address] 12-09-2022 11:00-0400 Diastolic blood pressure 71 mm[Hg] Dr. Valeriano Beasley Work Phone: 8(321)449-296704 [place] [address] 12-09-2022 11:00-0400 Heart rate 59 /min Dr. Valeriano Beasley Work Phone: 8(871)265-190304 [place] [address] 12-09-2022 11:00-0400 Respiratory rate 16 /min Dr. Valeriano Beasley Work Phone: 7(047)199-589204 [place] [address] 12-09-2022 11:00-0400 Systolic blood pressure 141 mm[Hg] Dr. Valeriano Beasley Work Phone: 6(422)284-288903 [place] [address] 2022 12:59-0400 Body mass index (BMI) [Ratio] 28.3 kg/m2 Dr. Valeriano Beasley Work Phone: 7(535)446-343604 [place] [address] 2022 12:59-0400 Body weight 89.[address] Valeriano Beasley Work Phone: [facility] 2022 12:59-0400 Diastolic blood pressure 76 mm[Hg] Dr. Valeriano Beasley Work Phone: [facility] 2022 12:59-0400 Heart rate 59 /min Dr. Valeriano Beasley Work Phone: [facility] 2022 12:59-0400 SaO2% (BldA) [Mass fraction] 94 % Dr. Valeriano Beasley Work Phone: [facility] 2022 12:59-0400 Systolic blood pressure 152 mm[Hg] Dr. Valeriano Beasley Work Phone: [facility] 10-12-2022 10:09-0400 Body temperature 97.2 [degF] Suzanna Dawson PA-C Work Phone: [facility] 10-12-2022 10:09-0400 Body weight 85.73 kg Suzannaselvin Dawson PA-C Work Phone: [facility] 10-12-2022 10:09-0400 Diastolic blood pressure 80 mm[Hg] Suzannaselvin Dawson PA-C Work Phone: [facility] 10-12-2022 10:09-0400 Heart rate 56 /min Suzanna Dawson PA-C Work Phone: [facility] 10-12-2022 10:09-0400 Respiratory rate 16 /min Suzanna Daswon PA-C Work Phone: [facility] 10-12-2022 10:09-0400 Systolic blood pressure 136 mm[Hg] Suzanna Dawson PA-C Work Phone: [facility] 09-14-2022 14:41-0500 Body weight 88.91 kg Valeriano Beasley MD Work Phone: [facility] 09-14-2022 14:41-0500 Diastolic blood pressure 78 mm[Hg] Valeriano Beasley MD Work Phone: [facility] 09-14-2022 14:41-0500 Heart rate 58 /min Valeriano Beasley MD Work Phone: [facility] 09-14-2022 14:41-0500 Systolic blood pressure 118 mm[Hg] Valeriano Beasley MD Work Phone: [facility] 09-10-2022 11:00-0500 Body temperature 98.9 [degF] Dr. Valeriano Beasley Work Phone: [facility] 09-10-2022 11:00-0500 Diastolic blood pressure 85 mm[Hg] Dr. Valeriano Beasley Work Phone: 0(744)238-945704 [place] [address] 09-10-2022 11:00-0500 Heart rate 81 /min Dr. Valeriano Beasley Work Phone: 1(202)058-114704 [place] [address] 09-10-2022 11:00-0500 Respiratory rate 18 /min Dr. Valeriano Beasley Work Phone: 1(023)239-637504 [place] [address] 09-10-2022 11:00-0500 SaO2% (BldA) [Mass fraction] 95 % Dr. Valeriano Beasley Work Phone: 2(638)182-918904 [place] [address] 09-10-2022 11:00-0500 Systolic blood pressure 141 mm[Hg] Dr. Valeriano Beasley Work Phone: [facility] 09-10-2022 05:55-0500 Body weight 90.[address] Valeriano Beasley Work Phone: 7(681)648-004004 [place] [address] 09-06-2022 15:28-0500 Body height 177.[address] Valeriano Beasley Work Phone: 9(148)782-386404 [place] [address] 09-04-2022 17:45-0500 Inhaled oxygen flow rate 2 L/min Dr. Valeriano Beasley Work Phone: 5(567)531-688104 [place] [address] 09-02-2022 16:04-0500 Body mass index (BMI) [Ratio] 26.9 kg/m2 Dr. Valeriano Beasley Work Phone: 9(592)515-807804 [place] [address] 06-27-2022 08:46-0500 Body height 177.8 cm [facility] Work Phone: 06-27-2022 08:46-0500 Body weight 89.58 kg [facility] 05-25-2022 09:38-0400 Body weight 92.98 kg [facility] 04-25-2022 11:19-0400 Body height 177.8 cm [facility] Work Phone: 04-25-2022 11:19-0400 Body weight 90.71 kg [facility] 04-18-2022 15:36-0400 Diastolic blood pressure 105 mm[Hg] Valeriano Beasley MD Work Phone: [facility] 04-18-2022 15:36-0400 Systolic blood pressure 175 mm[Hg] Valeriano Beasley MD Work Phone: [facility] 04-18-2022 14:39-0400 Body height 174 cm Valeriano Beasley MD Work Phone: [facility] 04-18-2022 14:39-0400 Body weight 90.36 kg Valeriano Beasley MD Work Phone: [facility] 04-18-2022 14:39-0400 Heart rate 66 /min Valeriano Beasley MD Work Phone: [facility] 04-18-2022 14:39-0400 Respiratory rate 16 /min Valeriano Beasley MD Work Phone: [facility] 03-25-2022 15:31-0400 Body height 177.8 cm [facility] Work Phone: 03-25-2022 15:31-0400 Body weight 88.45 kg [facility] Work Phone: 03-25-2022 14:44-0400 Body mass index (BMI) [Ratio] 27.1 kg/m2 [facility] Work Phone: 03-25-2022 14:44-0400 Body temperature 98.7 [degF] [facility] Work Phone: 03-25-2022 14:44-0400 Diastolic blood pressure 80 mm[Hg] [facility] Work Phone: 03-25-2022 14:44-0400 Heart rate 56 /min [facility] Work Phone: 03-25-2022 14:44-0400 Respiratory rate 14 /min [facility] Work Phone: 03-25-2022 14:44-0400 SaO2% (BldA) [Mass fraction] 95 % [facility] Work Phone: 03-25-2022 14:44-0400 Systolic blood pressure 134 mm[Hg] [facility] Work Phone: 01-27-2022 14:00-0400 Diastolic blood pressure 80 mm[Hg] DR FRANKLIN NASH MD [address] [place] [id number] 01-27-2022 14:00-0400 Heart rate 64 /min DR FRANKLIN NASH MD [address] [place] [id number] 01-27-2022 14:00-0400 Mean blood pressure 97 mm[Hg] DR FRANKLIN NASH MD [address] [place] [id number] 01-27-2022 14:00-0400 Systolic blood pressure 130 mm[Hg] DR FRANKLIN NASH MD [address] [place] [id number] 01-27-2022 13:15-0400 Diastolic blood pressure 72 mm[Hg] DR FRANKILN NASH MD [address] [place] [id number] 01-27-2022 13:15-0400 Heart rate 65 /min DR FRANKLIN NASH MD [address] [place] [id number] 01-27-2022 13:15-0400 Mean blood pressure 90 mm[Hg] DR FRANKLIN NASH MD [address] [place] [address] 01-27-2022 13:15-0400 Systolic blood pressure 127 mm[Hg] DR FRANKLIN NASH MD [address] [place] [id number] 01-27-2022 13:00-0400 Diastolic blood pressure 75 mm[Hg] DR FRANKLIN NASH MD [address] [place] [address] 01-27-2022 13:00-0400 Heart rate 66 /min DR FRANKLIN NASH MD [address] [place] [id number] 01-27-2022 13:00-0400 Mean blood pressure 92 mm[Hg] DR FRANKLIN NASH MD [address] [place] [id number] 01-27-2022 12:08-0400 Reason For Taking VItal Signs DR FRANKLIN NASH MD [address] [place] [address] 01-27-2022 12:08-0400 Respiratory rate 18 /min DR FRANKLIN NASH MD [address] [place] [id number] 01-27-2022 11:24-0400 Reason For Taking VItal Signs DR FRANKLIN NASH MD [address] [place] [address] 01-27-2022 11:24-0400 Respiratory rate 16 /min DR FRANKLIN NASH MD [address] [place] [id number] 01-27-2022 06:11-0400 Body height 177.[address] FRANKLIN NASH MD [address] [place] [id number] 01-27-2022 06:11-0400 Body temperature 97.34 [degF] DR FRANKLIN NASH MD [address] [place] [id number] 01-27-2022 06:11-0400 Body weight 88.[address] FRANKLIN NASH MD [address] [place] [address] 01-27-2022 06:11-0400 Body weight 28.12 kg/m2 DR FRANKLIN NASH MD [address] [place] [address] 01-27-2022 06:11-0400 diastolic 85 mm[Hg] DR FRANKLIN NASH MD [address] [place] [address] 01-27-2022 06:11-0400 Heart rate 56 /min DR FRANKLIN NASH MD [address] [place] [address] 01-27-2022 06:11-0400 Respiratory rate 16 /min DR FRANKLIN NASH MD [address] [place] [address] 01-27-2022 06:11-0400 systolic 149 mm[Hg] DR FRANKLIN NASH MD [address] [place] [address] 12-01-2021 10:25-0400 Diastolic blood pressure 78 mm[Hg] CHRISTINE EDWARDS MD [address] [place] [address] 12-01-2021 10:25-0400 Heart rate 85 /min CHRISTINE EDWARDS MD [address] [place] [address] 12-01-2021 10:25-0400 Respiratory rate 20 /min CHRISTINE EDWARDS MD [address] [place] [address] 12-01-2021 10:25-0400 Systolic blood pressure 142 mm[Hg] CHRISTINE EDWARDS MD [address] [place] [address] 12-01-2021 10:18-0400 Heart rate 93 /min CHRISTINE EDWARDS MD [address] [place] [address] 12-01-2021 08:01-0400 Heart rate 68 /min CHRISTINE EDWARDS MD [address] [place] [address] 12-01-2021 06:26-0400 Body temperature 97.7 [degF] CHRISTINE EDWARDS MD [address] [place] [address] 12-01-2021 06:26-0400 Diastolic blood pressure 62 mm[Hg] CHRISTINE EDWARDS MD [facility] 12-01-2021 06:26-0400 Reason For Taking VItal Signs CHRISTINE EDWARDS MD [facility] 12-01-2021 06:26-0400 Respiratory rate 20 /min CHRISTINE EDWARDS MD [facility] 12-01-2021 06:26-0400 Systolic blood pressure 130 mm[Hg] CHRISTINE EDWARDS MD [facility] 12-01-2021 04:04-0400 Diastolic blood pressure 70 mm[Hg] CHRISTINE EDWARDS MD [facility] 12-01-2021 04:04-0400 Mean blood pressure 89 mm[Hg] CHRISTINE EDWARDS MD [facility] 12-01-2021 04:04-0400 Reason For Taking VItal Signs CHRISTINE EDWARDS MD [facility] 12-01-2021 04:04-0400 Respiratory rate 20 /min CHRISTINE EDWARDS MD [facility] 12-01-2021 04:04-0400 Systolic blood pressure 128 mm[Hg] CHRISTINE EDWARDS MD [facility] 11-30-2021 22:06-0400 Body temperature 98.24 [degF] CHRISTINE EDWARDS MD [facility] 11-30-2021 22:06-0400 Mean blood pressure 103 mm[Hg] CHRISTINE EDWARDS MD [facility] 11-30-2021 22:06-0400 Reason For Taking VItal Signs CHRISTINE EDWARDS MD [facility] 11-30-2021 19:22-0400 Diastolic Blood Pressure NBP 82 1 CHRISTINE EDWARDS MD [facility] 11-30-2021 19:22-0400 Systolic Blood Pressure NBP 138 1 CHRISTINE EDWARDS MD [facility] 11-30-2021 19:01-0400 Body temperature 97.7 [degF] CHRISTINE EDWARDS MD [facility] 11-30-2021 19:01-0400 Mean blood pressure 95 mm[Hg] CHRISTINE EDWARDS MD [facility] 11-30-2021 13:20-0400 SaO2% (BldA) [Mass fraction] 96.3 % CHRISTINE EDWARDS MD [facility] 11-30-2021 11:33-0400 Heart rate 56 /min CHRISTINE EDWARDS MD [facility] 11-30-2021 09:52-0400 Heart rate 64 /min CHRISTINE EDWARDS MD [facility] 11-30-2021 07:29-0400 Heart rate 52 /min CHRISTINE EDWARDS MD [facility] 11-30-2021 02:55-0400 Diastolic Blood Pressure NBP 72 1 CHRISTINE EDWARDS MD [facility] 11-30-2021 02:55-0400 Mean blood pressure 85 mm[Hg] CHRISTINE EDWARDS MD [facility] 11-30-2021 02:55-0400 Systolic Blood Pressure NBP 118 1 CHRISTINE EDWARDS MD [facility] 11-30-2021 02:22-0400 Diastolic Blood Pressure NBP 52 1 CHRISTINE EDWARDS MD [facility] 11-30-2021 02:22-0400 Mean blood pressure 68 mm[Hg] CHRISTINE EDWARDS MD [facility] 11-30-2021 02:22-0400 Systolic Blood Pressure NBP 104 1 CHRISTINE EDWARDS MD [facility] 11-30-2021 00:05-0400 Mean blood pressure 85 mm[Hg] CHRISTINE EDWARDS MD [facility] 11-29-2021 16:55-0400 Body height 177.8 cm CHRISTINE EDWARDS MD [facility] 11-29-2021 16:55-0400 Body weight 94.5 kg CHRISTINE EDWARDS MD [facility] 11-29-2021 16:55-0400 Body weight 29.89 kg/m2 CHRISTINE EDWARDS MD [facility] 11-29-2021 15:00-0400 Diastolic blood pressure 141 mm[Hg] DONAVON NUNEZ DO [facility] 11-29-2021 15:00-0400 Heart rate 59 /min DONAVON NUNEZ DO [facility] 11-29-2021 15:00-0400 Respiratory rate 20 /min DONAVON NUNEZ DO [facility] 11-29-2021 15:00-0400 Systolic blood pressure 155 mm[Hg] DONAVON NUNEZ DO [facility] 11-29-2021 14:56-0400 Body weight 95.4 kg DONAVON NUNEZ DO [facility] 11-29-2021 14:34-0400 Body temperature 98.6 [degF] DONAVON NUNEZ DO [facility] 11-29-2021 14:34-0400 Body weight 95.4 kg DONAVON NUNEZ DO [facility] 11-29-2021 14:34-0400 Diastolic blood pressure 97 mm[Hg] DONAVON NUNEZ DO [facility] 11-29-2021 14:34-0400 Heart rate 40 /min DONAVON NUNEZ DO [facility] 11-29-2021 14:34-0400 Respiratory rate 22 /min DONAVON NUNEZ DO [facility] 11-29-2021 14:34-0400 Systolic blood pressure 138 mm[Hg] DONAVON NUNEZ DO [facility] Encounters Encounter Date Encounter Type Care Provider Facility Start: 03-20-2025 ambulatory Valeriano Beasley Facility :[facility] Start: 03-10-2025 End: 03-10-[address] Valeriano Beasley MD Work Phone: -Ultrasound [facility] Start: 03-10-2025 End: 03-10-[address] Shubham Blanco MD -Ultrasound [facility] Work Phone: Start: 03-10-2025 End: 03-10-2025 ambulatory Shubham Blanco Facility:[facility] Start: 02-26-2025 End: 02-26-[address] Shubham Blanco MD -[facility] Work Phone: Start: 02-26-2025 End: 02-26-[address] Valeriano Beasley MD Work Phone: -[facility] Start: 02-25-2025 End: 02-25-[address] Valeriano Beasley MD Work Phone: -Laboratory Start: 02-25-2025 End: 02-25-2025 Patient encounter procedure Ashley Radford -Laboratory Work Phone: Start: 02-25-2025 End: 02-25-2025 ambulatory Valeriano Beasley Facility:[facility] Start: 02-07-2025 End: 02-07-2025 Chart abstracting Valeriano Beasley MD Work Phone: [facility] Comment on above: Outside [id number] Ordered Start: 02-07-2025 End: 02-07-[address] Valeriano Beasley MD Work Phone: -Laboratory Start: 02-07-2025 End: 02-07-[address] Shubham Blanco MD -Laboratory Work Phone: Start: 02-07-2025 End: 02-07-2025 ambulatory Shubham Blanco Facility:[facility] Start: 01-30-2025 End: 01-30-2025 Chart abstracting Valeriano Beasley MD Work Phone: [facility] Comment on above: Abstract (Allergy OV notes) Start: 01-30-2025 End: 01-30-2025 ambulatory VALERIANO BEASLEY Facility:[facility] Start: 01-30-2025 End: 01-30-2025 Patient encounter procedure Valeriano Beasley MD Work Phone: [facility] Comment on above: Lower GI bleed (Prim mnotana Dx); Angiodysplasia of colon Start: 01-29-2025 End: 01-29-2025 Patient encounter procedure Ping LAMBERT -[facility] Work Phone: Start: 01-29-2025 End: 01-29-[address] Valeriano Beasley MD Work Phone: -[facility] Start: 01-27-2025 End: 01-27-2025 Chart abstracting Valeriano Beasley MD Work Phone: [facility] Comment on above: Abstract ([facility] Admiss ion - GI bleed) Start: 01-25-2025 Non-patient / Non-visit Dr. Shubham Blanco MD -[facility] Work Phone: Start: 01-24-2025 Non-patient / Non-visit Dr. Shubham Blanco MD -[facility] Work Phone: Start: 01-23-2025 End: 01-25-2025 Evaluation and management of inpatient Dr. Tessa Hampton DO -Progressive Care Unit Work Phone: Start: 01-23-2025 End: 01-23-2025 ambulatory Valeriano Beasley MD Work Phone: [facility] Comment on above: RECENT GI BLEED Rectal Bleeding Start: 01-01-2025 End: 01-01-2025 ambulatory VALERIANO BEASLEY Facility:[facility] Start: 01-01-2025 End: 01-01-2025 Patient encounter procedure Suzanna Dawson PA-C Work Phone: [facility] Comment on above: Hospital discharge f ollow-up (Primary Dx); Essential hypertension, benign Start: 12-30-2024 Non-patient / Non-visit Dr. Alexi Flanagan [facility] Work Phone: Start: 12-30-2024 Non-patient / Non-visit Dr. Homer avila DO [facility] Start: 12-29-2024 Non-patient / Non-visit Dr. Alexi Flanagan [facility] Work Phone: Start: 12-28-2024 Non-patient / Non-visit Dr. Alexi Flanagan [facility] Work Phone: Start: 12-27-2024 Non-patient / Non-visit Dr. Flakita Florentino [facility] Work Phone: Start: 12-27-2024 ambulatory Valeriano Beasley Facility :[facility] Start: 12-27-2024 End: 12-30-2024 Evaluation and management of inpatient Dr. Flakita Florentino DO -Intensive Care Unit Work Phone: Start: 12-26-2024 End: 12-26-2024 Chart abstracting Valeriano Beasley MD Work Phone: [facility] Comment on above: Outside Cardiology Start: 12-23-2024 End: 12-23-2024 Patient encounter procedure Patria Khanna MD Work Phone: Neurology Comment on above: Peripheral polyneuro mikala (Primary Dx); Low vitamin B12 level; Drinks beer Start: 12-23-2024 End: 12-23-2024 ambulatory PATRIA KHANNA JR Facility:[facility] Start: 11-14-2024 End: 01-14-2025 Follow-up encounter Nyla De Jesus DO Work Phone: Rheumatology Start: 11-12-2024 End: 11-12-2024 Chart abstracting Valeriano Beasley MD Work Phone: Family [facility] Comment on above: Outside Urology Start: 11-07-2024 End: 01-07-2025 Follow-up encounter Ni Sauceda APRN.MOTHER'S HELPER Work Phone: [facility] Comment on above: Results Start: 11-06-2024 ambulatory VALERIANO BEASLEY Facili ty:[facility] Start: 11-06-2024 End: 11-06-2024 Subsequent hospital visit by physician [facility] Work Phone: Radiology Comment on above: Screening for abdomi nal aortic aneurysm [Z13.6] Start: 11-05-2024 End: 11-12-2024 Chart abstracting Flakita Pastor MA [facility] Comment on above: external document (L ab results) Start: 11-05-2024 End: 11-05-2024 Patient encounter procedure Estefany Thrasher NP-L[facility] -[facility] Work Phone: Start: 11-05-2024 End: 11-05-[address] Valeriano Beasley MD Work Phone: [facility] Work Phone: Start: 11-05-2024 End: 11-05-2024 ambulatory [facility] Facility:[facility] Start: 11-01-2024 End: 11-01-2024 Patient encounter procedure Ni Sauceda APRN.MOTHER'S HELPER Work Phone: [facility] Comment on above: Essential hypertensi [...] Start: 11-01-2024 End: 11-01-2024 ambulatory VALERIANO BEASLEY Facility:[facility] Start: 10-30-2024 End: 10-30-2024 ambulatory VALERIANO BEASLEY Facility:[facility] Start: 10-29-2024 End: 10-30-2024 Follow-up encounter Stephanie Roy DO Work Phone: Hematology/Oncology Start: 10-23-2024 End: 10-23-2024 ambulatory VALERIANO BEASLEY Facility:[facility] Start: 10-23-2024 End: 10-23-2024 Subsequent hospital visit by physician Vonnie [facility] Work Phone: Radiology Comment on above: Monoclonal gammopath y [D47.2] Start: 10-23-2024 End: 10-23-2024 Chart abstracting Ganesh White MA [facility] Comment on above: Results Start: 10-23-2024 End: 10-23-2024 ambulatory Stephanie Roy DO Work Phone: Hematology/Oncology Comment on above: Monoclonal gammopath y (Primary Dx); Neuropathy - (NOS) Start: 10-23-2024 End: 10-23-2024 Patient encounter procedure Stephanie Roy DO Work Phone: Hematology/Oncology Start: 10-21-2024 End: 10-21-2024 ambulatory VALERIANO BEASLEY Facility:[facility] Start: 10-11-2024 End: 10-11-[address] Valeriano Beasley MD Work Phone: [facility] Work Phone: Start: 10-11-2024 End: 10-11-[address] Geovani Barron MD -Laboratory, Specimen Work Phone: Start: 10-11-2024 End: 10-11-2024 ambulatory Valeriano Beasley Facility:[facility] Start: 10-09-2024 Encounter for preprocedural cardiovascular examination Geovani Barron [facility] Start: 09-27-2024 End: 10-01-2024 Telephone encounter Stephanie Roy DO Work Phone: Hematology/Oncology Comment on above: Results Start: 09-26-2024 End: 09-26-[address] Valeriano Beasley MD Work Phone: [facility] Work Phone: Start: 09-26-2024 End: 09-26-[address] Geovani Barron MD -Pulmonary Services/Neurology Work Phone: Start: 09-25-2024 End: 09-26-2024 ambulatory Stephanie Roy DO Work Phone: Hematology/Oncology Comment on above: Neuropathy - (NOS) ( Primary Dx) Start: 09-25-2024 End: 09-25-2024 Patient encounter procedure Stephanie Adboulaye Jacksoni DO Work Phone: Hematology/Oncology Start: 09-24-2024 End: 09-24-2024 Chart abstracting Valeriano Beasley MD Work Phone: [facility] Comment on above: Outside Imaging (Uro logy/) Start: 09-23-2024 End: 09-23-[address] Valeriano Beasley MD Work Phone: [facility] Work Phone: Start: 09-23-2024 End: 09-23-[address] Geovani Barron MD -Radiology, [facility] Work Phone: Start: 09-23-2024 End: 09-23-2024 ambulatory Valeriano Beasley Facility:[facility] Start: 09-19-2024 End: 09-19-[address] Shubham Blanco MD -[facility] Work Phone: Start: 09-19-2024 End: 09-19-2024 ambulatory Shubham Blanco Facility:[facility] Start: 09-18-2024 End: 09-18-2024 Chart abstracting Ganesh White MA [facility] Comment on above: Results (Outside lab s ) Start: 09-17-2024 End: 09-17-2024 Chart abstracting Valeriano Beasley MD Work Phone: [facility] Comment on above: Outside Ojzw-Ifg-VKK Ordered Start: 09-13-2024 End: 09-13-2024 Chart abstracting Valeriano Beasley MD Work Phone: [facility] Comment on above: Outside Nciv-Wfz-GXO Ordered Start: 09-12-2024 End: 09-12-[address] Shubham Blanco MD -Laboratory Work Phone: Start: 09-12-2024 End: 09-12-2024 ambulatory Shubham Blanco Facility:[facility] Start: 09-07-2024 End: 09-07-2024 Chart abstracting Valeriano Beasley MD Work Phone: [facility] Comment on above: Outside Imaging Start: 09-06-2024 End: 09-06-[address] Shubham Blanco MD -Cat Scan, [facility] Work Phone: Start: 09-06-2024 End: 09-06-2024 ambulatory Shubham Blanco Facility:[facility] Start: 09-03-2024 End: 09-03-2024 ambulatory Nyla [...] ry Dx) Start: 08-30-2024 End: 08-30-2024 ambulatory PATRIA KHANNA JR Facility:[facility] Start: 08-30-2024 End: 08-30-2024 Patient encounter procedure Patria Khanna MD Work Phone: Neurology Comment on above: Neuropathy, idiopath ic (Primary Dx); Abnormal SPEP; Positive GALLO (antinuclear antibody); Abnormality of gait; Numbness Start: 08-30-2024 End: 08-30-2024 ambulatory PATRIA Irma KHANNA JR Facility:[facility] Start: 08-28-2024 End: 08-28-2024 Chart abstracting Valeriano Beasley MD Work Phone: Family [facility] [place] Comment on above: Outside Urology Start: 08-19-2024 End: 08-19-2024 ambulatory AMUDHA PAZHANISAMY Facility:[facility] Start: 08-19-2024 End: 08-19-2024 ambulatory AMUDHA PAZHANISAMY Facility:[facility] Start: 08-19-2024 End: 08-19-2024 Office consultation new/estab patient 40 min Amudha Pazhanisamy DO Work Phone: Allergy Comment on above: Angioedema, subseque nt encounter Start: 07-31-2024 End: 07-31-2024 ambulatory VALERIANO BEASLEY Facility:[facility] Start: 07-31-2024 End: 07-31-2024 Patient encounter procedure Valeriano Beasley MD Work Phone: [facility] [place] Comment on above: Angioedema, subseque nt encounter (Primary Dx) Start: 07-19-2024 End: 07-19-2024 Chart abstracting Valeriano Beasley MD Work Phone: [facility] [place] Comment on above: ER Discharge Summary Refill Request Start: 07-18-2024 End: 07-18-2024 Emergency department patient visit Dr. Stan Gilbert DO -Emergency Department Work Phone: Start: 06-05-2024 End: 06-05-2024 Chart abstracting Valeriano Beasley MD Work Phone: [facility] [place] Comment on above: Outside Gastro Start: 06-04-2024 End: 06-04-2024 ambulatory Valeriano Beasley Facility:[facility] Start: 05-30-2024 End: 05-30-2024 Chart abstracting Valeriano Beasley MD Work Phone: [facility] Start: 05-29-2024 End: 05-29-2024 ambulatory VALERIANO BEASLEY Facility:[facility] Start: 05-29-2024 End: 05-29-2024 Office outpatient visit 15 minutes Suzanna Dawson PA-C Work Phone: [facility] Comment on above: Essential hypertensi on, benign (Primary Dx) Start: 05-28-2024 End: 05-28-2024 Chart abstracting Valeriano Beasley MD Work Phone: [facility] [place] Comment on above: Outside Urology Start: 05-20-2024 End: 05-21-2024 Telephone encounter Suzanna Dawson PA-C Work Phone: [facility] [place] Comment on above: Results Start: 05-16-2024 End: 05-16-2024 ambulatory VALERIANO BEASLEY Facility:[facility] Start: 05-14-2024 End: 05-20-2024 Telephone encounter Suzanna Dawson PA-C Work Phone: [facility] Comment on above: Results Start: 05-14-2024 End: 05-14-2024 ambulatory Valeriano Beasley Facility:[facility] Start: 05-13-2024 End: 05-13-2024 Telephone encounter Valeriano Beasley MD Work Phone: [facility] Comment on above: Patient Question Start: 05-01-2024 End: 05-01-2024 Telephone encounter Valeriano Beasley MD Work Phone: [facility] Comment on above: Release Of Medical R ecords Start: 05-01-2024 End: 05-01-2024 ambulatory VALERIANO BEASLEY Facility:[facility] Start: 05-01-2024 End: 05-01-2024 Patient encounter procedure Suzanna Dawson PA-C Work Phone: [facility] Comment on above: Medicare annual well ness visit, subsequent (Primary Dx); Encounter for immunization; Essential hypertension, benign; Advance directive discussed with patient; Living will in place; Relief Pilot's nodules; Valvular heart disease; Coronary artery disease due to lipid rich plaque; Heart murmur, systolic; Mixed hyperlipidemia; Low vitamin D level; Low serum vitamin B12; Gout without tophus; Overweight with body mass index (BMI) of 29 to 29.9 in adult; Elevated LFTs; Alcohol abuse; Elevated PSA Start: 04-17-2024 End: 04-17-2024 Chart abstracting Ganesh White MA [facility] [place] Comment on above: Consult (Outside Car diology /) Start: 04-15-2024 End: 04-15-2024 ambulatory [facility] Facility:[facility] Start: 04-04-2024 End: 04-04-2024 ambulatory [facility] Facility:[facility] Start: 04-04-2024 End: 04-04-2024 Patient encounter procedure Ni Sauceda APRN.CNP Work Phone: [facility] [place] Comment on above: Essential hypertensi on, benign (Primary Dx) Start: 04-01-2024 End: 04-01-2024 Chart abstracting Ganesh White MA [facility] [place] Comment on above: ER F/U Start: 04-01-2024 End: 04-01-2024 Telephone encounter Ganesh White MA [facility] [place] Comment on above: Appointment Start: 03-29-2024 End: 03-29-2024 Emergency department patient visit [facility] Facility:[facility] Start: 03-29-2024 End: 03-29-2024 [facility] Facility:[facility] Start: 03-29-2024 End: 03-29-2024 Patient encounter procedure Gardenia Villareal APRN.CNP Work Phone: [facility] Comment on above: Tongue swelling (Linda marilyn Dx) Start: 02-08-2024 End: 02-08-2024 Subsequent hospital visit by physician Analilia [facility] (I-Stat) Work Phone: Cat Scan Comment on above: Occlusion and stenos is of unspecified carotid artery [I65.29] Start: 02-06-2024 Telephone encounter Patria Khanna MD Work Phone: Neurology Comment on above: Results Start: 02-06-2024 End: 02-06-2024 Subsequent hospital visit by physician Mri Radio [facility] (I-Stat/1.5t) Work Phone: Radiology Comment on above: Other symptoms and s igns involving the nervous system [R29.818] Start: 01-31-2024 Chart abstracting Valeriano lua MD Work Phone: Family [facility] [place] Comment on above: Outside Cardiology Start: [...] encounter Valeriano Beasley MD Work Phone: Family [facility] [place] Comment on above: Patient Question Start: 12-19-2023 Chart abstracting Valeriano lua MD Work Phone: [facility] [place] Comment on above: Ext / Nuclear Stress Test Start: 10-17-2023 Telephone encounter Valeriano Beasley MD Work Phone: Family [facility] [place] Comment on above: Orders (labs) Start: 10-14-2023 ambulatory Genny Tsai MA [facility] Start: 10-14-2023 Patient encounter procedure Genny Tsai MA [facility] Comment on above: Population Health Na vigation Outreach ([facility] Annual Wellness Visit ) Start: 10-03-2023 Telephone encounter Valeriano Beasley MD Work Phone: Family [facility] [place] Comment on above: Orders Start: 09-29-2023 Chart abstracting Valeriano lua MD Work Phone: Family [facility] [place] Comment on above: Outside Echo ([place]) Start: 09-28-2023 Non-patient / Non-visit Dr. William Beasley Work Phone: [facility] Work Phone: Start: 09-28-2023 Non-patient / Non-visit Dr. William Beasley Work Phone: [facility] Start: 09-28-2023 End: 09-28-[address] Valeriano Beasley Work Phone: [facility] Work Phone: Start: 09-28-2023 End: 09-28-[address] [facility] Work [facility]: Start: 09-25-2023 Refill Valeriano solano MD Work Phone: [facility] Comment on above: Refill Request Start: 09-07-2023 Chart abstracting Valeriano lua MD Work Phone: [facility] Comment on above: [place] [facility] (labs) Start: 09-06-2023 Chart abstracting Valeriano lua MD Work Phone: [facility] Comment on above: Outside Cardiology ( labs) Start: 09-05-2023 End: 09-05-[address] Valeriano Beasley Work Phone: [facility] Work Phone: Start: 09-05-2023 End: 09-05-[address] Valeriano Beasley Work Phone: [facility] Work Phone: Start: 09-04-2023 Chart abstracting Valeriano lua MD Work Phone: [facility] Comment on above: outside imaging Start: 09-01-2023 Chart abstracting Valeriano lua MD Work Phone: [facility] Comment on above: Outside Orthopedics Start: 09-01-2023 Telephone encounter Valeriano Beasley MD Work Phone: Radiology Start: 09-01-2023 End: 09-01-[address] Valeriano Beasley Work Phone: [facility] Work Phone: Start: 08-29-2023 Telephone encounter Valeriano Beasley MD Work Phone: [facility] [place] Comment on above: Results Start: 08-28-2023 End: 08-28-2023 Subsequent hospital visit by physician Ct [facility] (I-Stat) Work Phone: Cat Scan Comment on above: Other specified diso rders of kidney and ureter [N28.89] Start: 08-25-2023 ambulatory Kirsten Denny MA [facility] Comment on above: Population Health Na vigation Outreach ([facility] AWV) Start: 08-21-2023 Telephone encounter Valeriano Beasley MD Work Phone: Family [facility] [place] Comment on above: Results Start: 05-26-2023 Chart abstracting Valeriano lua MD Work Phone: [facility] [place] Comment on above: Results (EMG ) Start: 05-25-2023 Non-patient / Non-visit Dr. William Beasley Work Phone: [facility] Start: 05-25-2023 End: 05-25-[address] Valeriano Beasley Work Phone: [facility] Work Phone: Start: 05-25-2023 End: 05-25-[address] Valeriano Beasley Work Phone: [facility]-Pulmonary Services/Neurology Work Phone: Start: 05-18-2023 End: 05-18-2023 Patient encounter procedure Valeriano Beasley MD Work Phone: [facility] [place] Comment on above: Essential hypertensi on, benign (Primary Dx); Low serum vitamin B12; Anxiety Start: 04-20-2023 End: 04-20-2023 Patient encounter procedure Valeriano Beasley MD Work Phone: [facility] Comment on above: Medicare annual [...] Chart abstracting Valeriano lua MD Work Phone: [facility] Comment on above: Outside GI Start: 12-20-2022 ambulatory Valeriano solano MD Work Phone: [facility] Start: 12-09-2022 End: 12-09-[address] Valeriano Beasley Work Phone: [facility] Work Phone: Start: 12-09-2022 End: 12-09-[address] Valeriano Beasley Work Phone: [facility] Start: 11-10-2022 Refill Valeriano solano MD Work Phone: [facility] Comment on above: Refill Request Refill Request (This is a short term to local pharmacy and a copy of the 90 sent to mail order.) Start: 10-20-2022 Chart abstracting Valeriano lua MD Work Phone: [facility] Comment on above: Consult (GI ) Start: 2022 End: [address] Valeriano Beasley Work Phone: [facility] Start: 10-13-2022 Telephone encounter Suzanna park PA-C Work Phone: [facility] Comment on above: Results Start: 10-12-2022 End: 10-12-2022 Patient encounter procedure Suzanna Dawson PA-C Work Phone: [facility] Comment on above: Essential hypertensi [...] / Non-visit Dr. William Beasley Work Phone: [facility] Start: 09-15-2022 Telephone encounter Valeriano Beasley MD Work Phone: [facility] Comment on above: Results Start: 09-14-2022 End: 09-14-2022 Patient encounter procedure Valeriano Beasley MD Work Phone: [facility] Comment on above: Lower GI bleed (Prim [place] Dx); Situational depression; AVM (arteriovenous malformation) of colon; Alcohol abuse; H/O non-ST elevation myocardial infarction (NSTEMI); Mixed hyperlipidemia Start: 09-10-2022 ambulatory Valeriano solano MD Work Phone: [facility] Start: 09-10-2022 Follow-up encounter Valeriano Beasley MD Work Phone: [facility] Comment on above: [facility] Start: 09-10-2022 Non-patient / Non-visit Dr. William Beasley Work Phone: [facility] Start: 09-10-2022 Non-patient / Non-visit Dr. William Beasley Work Phone: [facility] Start: 09-09-2022 Non-patient / Non-visit Dr. William Beasley Work Phone: [facility] Start: 09-08-2022 Non-patient / Non-visit Dr. William Beasley Work Phone: [facility] Start: 09-08-2022 Non-patient / Non-visit Dr. William Beasley Work Phone: [facility] Start: 09-07-2022 Non-patient / Non-visit Dr. William Beasley Work Phone: [facility] Start: 09-07-2022 Non-patient / Non-visit Dr. William Beasley Work Phone: [facility] Start: 09-06-2022 Non-patient / Non-visit Dr. William Beasley Work Phone: [facility] Start: 09-06-2022 Non-patient / Non-visit Dr. William Beasley Work Phone: [facility] Start: 09-06-2022 Non-patient / Non-visit Dr. William Beasley Work Phone: [facility] Start: 09-05-2022 Non-patient / Non-visit Dr. William Beasley Work Phone: [facility] Start: 09-05-2022 Non-patient / Non-visit Dr. William Beasley Work Phone: [facility] Start: 09-05-2022 Chart abstracting Valeriano lua MD Work Phone: [facility] [place] Comment on above: Consult (Consult [facility] ) Results (EGD results - [facility] ) Start: 09-05-2022 Non-patient / Non-visit Dr. William Beasley Work Phone: [facility] Start: 09-04-2022 Non-patient / Non-visit Dr. William Beasley Work Phone: [facility] Start: 09-04-2022 Non-patient / Non-visit Dr. William Beasley Work Phone: [facility] Start: 09-04-2022 Non-patient / Non-visit Dr. William Beasley Work Phone: [facility] Start: 09-03-2022 Non-patient / Non-visit Dr. William Beasley Work Phone: [facility] Start: 09-02-2022 End: 09-02-2022 Non-patient / Non-visit Dr. Valeriano Beasley Work Phone: [facility] Start: 09-02-2022 Non-patient / Non-visit Dr. William Beasley Work Phone: [facility] Start: 09-02-2022 End: 09-10-2022 Evaluation and management of inpatient Dr. Valeriano Beasley Work Phone: [facility] Start: 06-27-2022 End: 07-23-[address] [facility] Work Phone: Start: 06-27-2022 End: 07-23-[address] [facility] Start: 06-22-2022 End: 06-22-[address] [facility] Start: 05-23-2022 End: 05-23-[address] [facility] Work Phone: Start: 05-23-2022 End: 05-23-[address] [facility] Start: 04-22-2022 End: 04-22-[address] [facility] Work Phone: Start: 04-22-2022 End: 04-22-[address] [facility] Start: 04-18-2022 End: 04-18-2022 Patient encounter procedure Valeriano Beasley MD Work Phone: [facility] Comment on above: Medicare annual well ness visit, subsequent (Primary Dx); Essential hypertension, benign; Mixed hyperlipidemia; Coronary artery disease due to lipid rich plaque; Anxiety; Low vitamin D level; Gout without tophus; Elevated PSA; Living will in place; Advance directive discussed with patient Start: 04-12-2022 Telephone encounter Valeriano Beasley MD Work Phone: [facility] [place] Comment on above: Orders Start: 03-30-2022 Registered Recur[address] [facility] Start: 03-25-2022 End: 03-25-[address] [facility] Work Phone: Start: 03-25-2022 End: 03-25-[address] [facility] Start: 01-29-2022 ambulatory TESSA GUZMAN MD Facili ty:A Start: 01-27-2022 End: 01-27-[address] FRANKLIN NASH MD Facility:A Start: 01-27-2022 End: 01-27-[address] FRANKLIN NASH MD [facility] Start: 01-18-2022 ambulatory TESSA GUZMAN MD Facili ty:A Start: 01-01-2022 Orders Only Tessa Donato DO Work Phone: [facility] Comment on above: Myocardial infarctio n involving left anterior descending (LAD) coronary artery, unspecified [place] type (HCC) (Primary Dx) Start: 12-31-2021 Telephone encounter Celestine anthony MD Work Phone: Cardiothoracic Comment on above: Insurance Authorizat ion Start: 12-06-2021 Patient encounter procedure Celestine Talavera MD Work Phone: [facility] Work Phone: Start: 12-02-2021 Telephone encounter Ganesh White MA [facility] Comment on above: Appointment Start: 11-29-2021 End: 12-01-2021 Evaluation and management of inpatient CHRISTINE EDWARDS MD [facility] Start: 11-29-2021 End: 11-29-2021 Emergency department patient visit DONAVON NUNEZ DO [facility] Start: 03-15-2021 Patient encounter procedure Ganesh White MA [facility] Work Phone: Procedures Date Procedure Procedure Detail Performing Clinician Start: 03-10-2025 Total iron binding capacity measurement Dr. Valeriano Beasley MD Work Phone: Start: 03-10-2025 Ultrasound elastography of liver Dr. Jett Beasley MD Work Phone: Start: 02-25-2025 Pro[address] specific antigen measurement Dr. Valeriano Beasley MD Work Phone: Comment on above: This test was performed using the [employer] tPSA method. Measured values of a patient sample can vary depending on the testing procedure used. PSA values determined on patient samples by different testing procedures cannot be used interchangeably. If there is a change in PSA assays while monitoring therapy, sequential testing should be performed to confirm baseline values. Start: 02-25-2025 Plain X-ray abdomen Dr. Valeriano Beasley MD Work Phone: Start: 01-25-[address] Gabriele Beasley MD Work Phone: Start: 01-25-2025 Serum inorganic phosphate measurement Dr. Valeriano Beasley MD Work Phone: Start: 01-24-2025 Measurement of occult blood in stool specimen using immunoassay Dr. Valeriano Beasley MD Work Phone: Start: 01-23-2025 Urnls dip stick/tablet reagent auto microscopy Dr. Valeriano Beasley MD Work Phone: Start: 01-23-[address] Gabriele Beasley MD Work Phone: Start: 01-23-2025 Total iron binding capacity measurement Dr. Valeriano Beasley MD Work Phone: Start: 01-23-[address] Valeriano Beasley MD Work Phone: Start: 12-30-2024 Estimated [...] Hepatitis A virus antibody, IgM type Dr. Valerinao Beasley MD Work Phone: Comment on above: [...] real time screen study aaa Ni Sauceda APRN.MOTHER'S HELPER Work Phone: Start: 10-30-2024 Lipid 1996 panel - Serum or Plasma Ni Sauceda APRN.MOTHER'S HELPER Work Phone: Start: 10-11-2024 Cholesterol serum/whole blood total Dr. Valeriano Beasley MD Work Phone: Comment on above: Test not performed Start: 10-11-2024 External camera medical photography Dr. Valeriano Beasley MD Work Phone: Comment on above: Photograph will follow under a separate cover Start: 09-23-2024 Plain X-ray abdomen Dr. Valeriano Beasley MD Work Phone: Start: 09-12-2024 Gomai-1-Eramxhdbjvb measurement Dr. Jae Beasley MD Work Phone: Comment on above: [employer] Electrochemiluminescen ce Immunoassay(ECLIA)Values obtained with different assay methods or kits cannotbe used interchangeably. Results cannot be interpreted asabsolute evidence of the presence or absence of malignantdisease.This test is not interpretable in females. Start: 09-12-[address] Valeriano Beasley MD Work Phone: Comment on above: Performed at: [facility] [place], [place] [id number] Director: José Miguel Alba PhD, Phone: [phone] Start: 09-12-2024 Antibody to centromere measurement Dr. [...] Work Phone: Comment on above: Performed at: [facility] [place], [place] [id number] Director: José Miguel Alba PhD, Phone: [phone] at: [address] [id number] Director: Zafar Browne MD, Phone: [phone] Start: 09-12-2024 Measurement of renal function Dr. Dalila Beasley MD Work Phone: Comment on above: GFR Calc Start: 09-12-2024 ATOMIC PROCESS ENGINEER antibody measurement Dr. Valeriano peña MD Work Phone: Comment on above: Test not performed Start: 09-12-2024 Total iron binding capacity measurement Dr. Valeriano Beasley MD Work Phone: Start: 09-06-2024 Computed tomography of abdomen and pelvis with contrast Dr. Valeriano Beasley MD Work Phone: Start: 05-01-2024 P[employer]ZER[employer]istence [employer] COVID-19 VACCINE AGE 12+ YR (COMIRNATY) Suzanna [...] LM, LAD and LCX. Discussed with in laboratory supervisor - Will consult him for CABG in [...] DTaP,Tdap,Td Vaccine (3 - Td or Tdap) [facility] Start: 10-30-2029 Lipid panel Lipid Screening [facility] Start: 04-04-2029 Lipid panel Lipid Screening [facility] Start: 10-16-2028 Lipid panel Lipid Screening [facility] Start: 04-14-2028 Lipid 1996 panel - Serum or Plasma Lipid Screening [facility] Start: 04-14-2028 Lipid panel Lipid Screening [facility] Start: 10-31-2027 Diabetes Screening Diabetes Screening [facility] Start: 10-06-2027 LIPID SCREEN LIPID SCREEN [facility] Start: 09-26-2027 Diabetes Screening Diabetes Screening [facility] Start: 09-14-2027 LIPID SCREEN LIPID SCREEN [facility] Start: 04-13-2027 LIPID SCREEN LIPID SCREEN [facility] Start: 04-04-2027 Diabetes Screening Diabetes Screening [facility] Start: 10-16-2026 Diabetes Screening Diabetes Screening [facility] Start: 04-14-2026 Diabetes Screening Diabetes Screening [facility] Start: 03-24-2026 Colonoscopy COLONOSCOPY [facility] Start: 03-24-2026 COLORECTAL CANCER SCREENING COLORECTAL CANCER SCREENING [facility] Start: 03-15-2026 LIPID SCREEN LIPID SCREEN [facility] Start: 01-30-2026 Annual PCP Team Chronic Disease Visit Annual PCP Team Chronic Disease Visit [facility] Start: 01-01-2026 Annual PCP Team Chronic Disease Visit Annual PCP Team Chronic Disease Visit [facility] Start: 11-01-2025 Annual PCP Team Chronic Disease Visit Annual PCP Team Chronic Disease Visit [facility] Start: 11-01-2025 BP Controlled (<130/80) BP Controlled (<130/80) [facility] Start: 11-01-2025 Covid-19 Vaccine ( season) Covid-19 Vaccine ( season) [facility] Comment on above: Postponed from 10/30/2024 (Declined at t his time) Start: 11-01-2025 Hepatitis A Vaccine (1 of 2 - Risk 2-dose series) Hepatitis A Vaccine (1 of 2 - Risk 2-dose series) [facility] Comment on above: Postponed from 1969 (Declined at t his time) Start: 11-01-2025 Hepatitis B Vaccine (1 of 3 - Risk 3-dose series) Hepatitis B Vaccine (1 of 3 - Risk 3-dose series) [facility] Comment on above: Postponed from 2010 (Declined at t his time) Start: 11-01-2025 RSV Vaccine (1 - Risk 60-74 years 1-dose series) RSV Vaccine (1 - Risk 60-74 years 1-dose series) [facility] Comment on above: Postponed from 2010 (Declined at t his time) Start: 11-01-2025 Shingrix Vaccine (1 of 2) Shingrix Vaccine (1 of 2) [facility] Comment on above: Postponed from 2000 (Declined at t his time) Start: 11-01-2025 Urine microalbumin profile DTaP,Tdap,Td Vaccine (2 - Td or Tdap) [facility] Comment on above: Postponed from 03/04/2018 (Declined at t his time) Start: 10-30-2025 Hepatitis B surface antibody level LDL Cholesterol [facility] Start: 10-23-2025 BP Controlled (<130/80) BP Controlled (<130/80) [facility] Start: 2025 RSV Vaccine (1 - 1-dose 75+ series) RSV Vaccine (1 - 1-dose 75+ series) [facility] Start: 09-14-2025 DIABETES SCREEN DIABETES SCREEN [facility] Start: 09-05-2025 Colonoscopy COLONOSCOPY [facility] Start: 09-05-2025 COLORECTAL CANCER SCREENING COLORECTAL CANCER SCREENING [facility] Start: 09-05-2025 Screening for malignant neoplasm of colon [facility] Start: 08-19-2025 BP Controlled (<130/80) BP Controlled (<130/80) [facility] Start: 07-31-2025 Annual PCP Team Chronic Disease Visit Annual PCP Team Chronic Disease Visit [facility] Start: 07-31-2025 BP Controlled (<130/80) BP Controlled (<130/80) [facility] Start: 05-29-2025 Annual PCP Team Chronic Disease Visit Annual PCP Team Chronic Disease Visit [facility] Start: 05-29-2025 BP Controlled (<130/80) BP Controlled (<130/80) [facility] Start: 05-06-2025 End: 05-06-2025 Patient encounter procedure 05/06/2025 1:40 PM EDT Office Visit [facility] [place] [address] [place] [address] Valeriano Beasley MD [address] [place] [id number] medicare wellness [facility] Comment on above: medicare wellness Start: 05-01-2025 Annual PCP Team Chronic Disease Visit Annual PCP Team Chronic Disease Visit [facility] Start: 05-01-2025 BP Controlled (<130/80) BP Controlled (<130/80) [facility] Start: 04-24-2025 End: 04-24-2025 ambulatory [place] [facility] Comment on above: CBC/CMP/Myeloma labs with urine* OV* Start: 04-16-2025 End: 04-16-2025 Patient encounter procedure 04/16/2025 11:30 AM EDT Office Visit Neurology [address] [place] [address] Tayler Ellis PA-C [address] [place] [address] 3 month follow up, Neuropathy - Gabapentin Neurology Comment on above: 3 month follow up, Neuropathy - Gabapent in Start: 04-13-2025 DIABETES SCREEN DIABETES SCREEN [facility] Start: 04-04-2025 Annual PCP Team Chronic Disease Visit Annual PCP Team Chronic Disease Visit [facility] Start: 04-04-2025 Hepatitis B surface antibody level LDL Cholesterol [facility] Start: 03-24-2025 Influenza vaccination Influenza Vaccine (#1) [facility] Start: 01-30-2025 End: 01-30-2025 Patient encounter procedure 01/30/2025 11:20 AM EDT Office Visit [facility] [address] [place] [address] Valeriano Beasley MD [address] [place] [address] [facility] discharge 01/25/25 - GI Bleed [facility] Comment on above: [facility] discharge 01/25/25 - GI Bleed Start: 01-25-[address] [facility] Start: 01-24-2025 [facility] Start: 01-23-2025 Application of intermittent pneumatic compression device [facility] Start: 01-23-2025 Following clinical pathway protocol [facility] Start: 01-23-2025 Assessment of risk of venous thromboembolism [facility] Start: 01-23-2025 Documentation procedure [facility] Start: 01-23-2025 Insertion of catheter into peripheral vein [facility] Start: 01-23-2025 Measuring intake and output [facility] Start: 01-23-[address] [facility] Start: 01-23-2025 Providing care according to standard [facility] Start: 01-23-2025 Provision of activity privileges [facility] Start: 01-23-2025 Referral to gastroenterology service [facility] Start: 01-23-[address] [facility] Start: 01-23-2025 [facility] Start: 01-23-[address] [facility] Start: 01-23-[address] [facility] Start: 01-23-2025 Hospital admission, emergency, from emergency room, medical nature [facility] Start: 01-23-2025 Urine culture Urine Culture [facility] Start: 12-30-[address] [facility] Start: 12-30-2024 Care planning and problem solving actions [facility] Start: 12-29-2024 Bacteria identified in Blood by Culture Blood Culture [facility] Start: 12-29-2024 [facility] Start: 12-29-2024 Following clinical pathway protocol [facility] Start: 12-29-[address] [facility] Start: 12-29-2024 [facility] Start: 12-28-2024 Microscopic observation [Identifier] in Unspecified specimen by Gram stain [facility] Start: 12-28-2024 Respiratory microbial culture Respiratory Culture [facility] Start: 12-27-2024 Following clinical pathway protocol [facility] Start: 12-27-2024 Assessment of risk of venous thromboembolism [facility] Start: 12-27-[address] [facility] Start: 12-27-2024 Continuous pulse oximetry [facility] Start: 12-27-2024 Elevation of head of bed [facility] Start: 12-27-2024 Insertion of catheter into peripheral vein [facility] Start: 12-27-2024 Measuring intake and output [facility] Start: 12-27-2024 Patient referral to dietitian [facility] Start: 12-27-2024 Providing care according to standard [facility] Start: 12-27-[address] [facility] Start: 12-27-2024 Removal of urinary catheter [facility] Start: 12-27-2024 Vital signs measurements [facility] Start: 12-27-2024 [facility] Start: 12-27-2024 Hospital admission, emergency, from emergency room, medical nature [facility] Start: 12-27-[address] [facility] Start: 12-27-2024 Airway suction technique [facility] Start: 12-27-2024 Microscopic observation [Identifier] in Unspecified specimen by Gram stain [facility] Start: 12-27-2024 Respiratory Culture Respiratory Culture [facility] Start: 12-27-[address] [facility] Start: 12-27-2024 Creatine kinase [Enzymatic activity/volume] in Serum or Plasma [facility] Start: 12-27-2024 Triglycerides measurement [facility] Start: 12-27-2024 End: 12-28-2024 [facility] Start: 12-27-2024 [facility] Start: 12-23-2024 End: 03-24-2025 Cobalamin (Vitamin B12) [Mass/volume] in Serum or Plasma [facility] Work Phone: Comment on above: Expected: 12/23/2024, Expires: Start: 12-23-2024 End: 12-23-2024 Patient encounter procedure 12/23/2024 2:00 PM EDT Office Visit Neurology [address] [facility] [place], [place] [address] Patria Khanna Jr., MD [address] [place], [place] [id number] WEEK FOLLOW UP Neurology Comment on above: 8 WEEK FOLLOW UP Start: 11-06-2024 End: 11-06-2024 Patient encounter procedure 11/06/2024 11:30 AM EDT Appointment Radiology [address] [place], [place] [id number] Dx: Screening for abdominal aortic aneurysm [Z13.6] Radiology Comment on above: Dx: Screening for abdominal aortic aneur ysm [Z13.6] Start: 11-01-2024 End: 11-01-2024 Patient encounter procedure 11/01/2024 11:00 AM EDT Office Visit [facility] [place] [address] [facility], [place] [id number] Ni Sauceda APRN.MOTHER'S HELPER [address] [place], [place] [phone] 6 month routine follow up [facility] Comment on above: 6 month routine follow up Start: 10-30-2024 End: 01-29-2025 25-hydroxyvitamin D3 [Mass/volume] in Serum or Plasma VITAMIN D 25 HYDROXY Lab Routine Low vitamin D level Expected: 10/30/2024, Expires: 01/29/2025 [facility] Comment on above: Expected: 10/30/2024, Expires: Start: 10-30-2024 End: 01-29-2025 CBC W Auto Differential panel - Blood COMPLETE BLOOD COUNT AND DIFFERENTIAL Lab Routine Essential hypertension, benign Expected: 10/30/2024, Expires: 01/29/2025 [facility] Comment on above: Expected: 10/30/2024, Expires: Start: 10-30-2024 End: 01-29-2025 Cobalamin (Vitamin B12) [Mass/volume] in Serum or Plasma VITAMIN B12 Lab Routine Low serum vitamin B12 Expected: 10/30/2024, Expires: 01/29/2025 [facility] Comment on above: Expected: 10/30/2024, Expires: Start: 10-30-2024 End: 01-29-2025 Comprehensive metabolic 2000 panel - Serum or Plasma COMPREHENSIVE METABOLIC PANEL Lab Routine Essential hypertension, benign Expected: 10/30/2024, Expires: 01/29/2025 [facility] Comment on above: Expected: 10/30/2024, Expires: Start: 10-30-2024 Covid-19 Vaccine () Covid-19 Vaccine () [facility] Start: 10-30-2024 End: 01-29-2025 LIPID PANEL, NONFASTING LIPID PANEL, NONFASTING Lab Routine Mixed hyperlipidemia Expected: 10/30/2024, Expires: 01/29/2025 [facility] Comment on above: Expected: 10/30/2024, Expires: Start: 10-30-2024 End: 01-29-2025 Prostate Specific Ag Free [Mass/volume] in Serum or Plasma PROSTATE SPECIFIC ANTIGEN, FREE Lab Routine Elevated PSA Expected: 10/30/2024, Expires: 01/29/2025 [facility] Comment on above: Expected: 10/30/2024, Expires: Start: 10-30-2024 End: 01-29-2025 Urate [Mass/volume] in Serum or Plasma URIC ACID Lab Routine Gout without tophus Expected: 10/30/2024, Expires: 01/29/2025 [facility] Work Phone: Comment on above: Expected: 10/30/2024, Expires: Start: 10-30-2024 End: 01-29-2025 Urinalysis complete panel - Urine URINALYSIS, WITH MICROSCOPIC Lab Routine Essential hypertension, benign Expected: 10/30/2024, Expires: 01/29/2025 [facility] Comment on above: Expected: 10/30/2024, Expires: Start: 10-30-2024 End: 10-30-2024 ambulatory 10/30/2024 11:00 AM EDT Results Only [place] [facility] LICENSE OF [facility] Draw Station [address] [place] [address] Lab [facility] Draw Station Comment on above: Lab Start: 10-23-2024 End: 10-23-2024 ambulatory 10/23/2024 11:10 AM EDT Visit (SP) Office Hematology/Oncology [address] [place] [address] Stephanie Roy DO [address] [place] [address] OV/LAB&24 HR URINE 10/21* Hematology/Oncology Comment on above: OV/LAB&24 HR URINE 10/21* Start: 10-21-2024 End: 10-21-2024 ambulatory 10/21/2024 11:00 AM EDT Results [facility] [address] [place] [address] LAB/24 HR URINE [facility] Laboratory Comment on above: LAB/24 HR URINE Start: 10-18-2024 Annual PCP Team Chronic Disease Visit Annual PCP Team Chronic Disease Visit [facility] Start: 10-16-2024 Hepatitis B surface antibody level LDL Cholesterol [facility] Start: 10-03-2024 End: 10-03-2024 Patient encounter procedure 10/03/2024 11:00 AM EDT Office Visit [facility] [place] [address] [facility] [place] [address] Ni Sauceda APRN.MOTHER'S HELPER [address] [place] [address] 6 month routine follow up [facility] [place] Comment on above: 6 month routine follow up Start: 09-27-2024 End: 12-27-2024 Calcium.ionized [Moles/volume] in Blood CALCIUM, IONIZED Lab Routine Hypercalcemia Expected: 09/27/2024, Expires: 12/27/2024 [facility] Work Phone: Comment on above: Expected: 09/27/2024, Expires: Start: 09-25-2024 End: 12-25-2024 Cobalamin (Vitamin B12) [Mass/volume] in Serum or Plasma [facility] Comment on above: Expected: 09/25/2024, Expires: Start: 09-25-2024 End: 12-25-2024 COPPER BLOOD [facility] Comment on above: Expected: 09/25/2024, Expires: Start: 09-25-2024 End: 12-25-2024 Folate [Mass/volume] in Serum or Plasma [facility] Comment on above: Expected: 09/25/2024, Expires: Start: 09-25-2024 End: 09-25-2024 HC visit new patient 09/25/2024 2:00 PM EST Visit (SP) Office Hematology/Oncology [address] [place], [place] [phone] Stephanie Roy DO [address] [place] [address] NEW PATIENT Hematology/Oncology Comment on above: NEW PATIENT Start: 09-25-2024 End: 12-25-2024 Methylmalonate [Moles/volume] in Serum or Plasma [facility] Comment on above: Expected: 09/25/2024, Expires: Start: 09-25-2024 End: 12-25-2024 MONOCLONAL PROT UR W[facility] Comment on above: Expected: 09/25/2024, Expires: Start: 09-25-2024 End: 12-25-2024 MONOCLONAL PROTEIN, SERUM (BLOOD) [facility] Comment on above: Expected: 09/25/2024, Expires: Start: 09-25-2024 End: 12-25-2024 PROTEIN ELECT RND UR W/[facility] Comment on above: Expected: 09/25/2024, Expires: Start: 09-25-2024 End: 12-25-2024 PROTEIN ELECTROPHORESIS SERUM W/INTERP [facility] Work Phone: Comment on above: Expected: 09/25/2024, Expires: Start: 09-03-2024 End: 09-03-2024 ambulatory 09/03/2024 3:10 PM [facility] [address] [place] [address] Nyla De Jesus [address] [place] [address] Positive GALLO (antinuclear antibody) [R76.8] Rheumatology Comment on above: Positive GALLO (antinuclear antibody) [R76 .8] Start: 09-03-2024 End: 12-03-2024 C reactive protein [Mass/volume] in Serum or Plasma C-REACTIVE PROTEIN Lab Routine Positive GALLO (antinuclear antibody) Expected: 09/03/2024, Expires: 12/03/2024 [facility] Comment on above: Expected: 09/03/2024, Expires: Start: 09-03-2024 End: 12-03-2024 CBC W Auto Differential panel - Blood COMPLETE BLOOD COUNT AND DIFFERENTIAL Lab Routine Positive GALLO (antinuclear antibody) Expected: 09/03/2024, Expires: 12/03/2024 [facility] Comment on above: Expected: 09/03/2024, Expires: Start: 09-03-2024 End: 12-03-2024 Complement C3 [Mass/volume] in Serum or Plasma C3 COMPLEMENT Lab Routine Positive GALLO (antinuclear antibody) Expected: 09/03/2024, Expires: 12/03/2024 [facility] Work Phone: Comment on above: Expected: 09/03/2024, Expires: Start: 09-03-2024 End: 12-03-2024 Complement C4 [Mass/volume] in Serum or Plasma C4 COMPLEMENT Lab Routine Positive GALLO (antinuclear antibody) Expected: 09/03/2024, Expires: 12/03/2024 [facility] Comment on above: Expected: 09/03/2024, Expires: Start: 09-03-2024 End: 12-03-2024 Comprehensive metabolic 2000 panel - Serum or Plasma COMPREHENSIVE METABOLIC PANEL Lab Routine Positive GALLO (antinuclear antibody) Expected: 09/03/2024, Expires: 12/03/2024 [facility] Comment on above: Expected: 09/03/2024, Expires: Start: 09-03-2024 End: 12-03-2024 DNA ANTIBODY DS BLD DNA ANTIBODY DS BLD Lab Routine Positive GALLO (antinuclear antibody) Expected: 09/03/2024, Expires: 12/03/2024 [facility] Comment on above: Expected: 09/03/2024, Expires: Start: 09-03-2024 End: 12-03-2024 Erythrocyte sedimentation rate SEDIMENTATION RATE, WESTERGREN Lab Routine Positive GALLO (antinuclear antibody) Expected: 09/03/2024, Expires: 12/03/2024 [facility] Comment on above: Expected: 09/03/2024, Expires: Start: 08-30-2024 End: 08-30-2024 Patient encounter procedure Neurology Comment on above: f/u balance, abnormal ga it, numbness, neuropathy, hx of CAD, Hx of stent- RACHAEL 12/31 WJN, labs ordered, MRI, MRA x2 Start: 08-30-2024 End: 11-29-2024 KAPPA/NEUMANN,FREE,SER [facility] Comment on above: Expected: 08/30/2024, Expires: Start: 08-30-2024 End: 11-29-2024 PROTEIN ELECTROPHORESIS SERUM W/INTERP [facility] Work Phone: Comment on above: Expected: 08/30/2024, Expires: Start: 08-19-2024 End: 08-19-2024 Patient encounter procedure 08/19/2024 1:30 PM EST Office Visit Allergy [address] [id number] Arun Christian DO [address] [place] [address] Angioedema, subsequent encounter [T78.3XXD] Allergy Comment on above: Angioedema, subsequent encounter [T78.3X XD] Start: 07-24-2024 Advance Directive Discussion Advance Directive Discussion [facility] Start: 07-24-2024 Medicare Advantage Annual Wellness Visit Medicare [facility] Annual Wellness Visit [facility] Start: 07-18-2024 [facility] Start: 07-12-2024 End: 07-12-2024 Patient encounter procedure 07/12/2024 4:40 PM EST Office Visit Neurology [address] [place] [address] Patria Khanna Jr., MD [address] [phone] follow up Neurology Comment on above: follow up Start: 07-10-2024 Annual PCP Team Chronic Disease Visit Annual PCP Team Chronic Disease Visit [facility] Start: 05-29-2024 End: 05-29-2024 Patient encounter procedure 05/29/2024 1:00 PM EST Office Visit [facility] [place] [address] [place] [address] Suzanna Dawson PA-C [address] [place] [address] bp recheck [facility] [place] Comment on above: bp recheck Start: 05-18-2024 Annual PCP Team Chronic Disease Visit Annual PCP Team Chronic Disease Visit [facility] Start: 05-01-2024 End: 05-01-2024 Patient encounter procedure 05/01/2024 1:00 PM EDT Office Visit [facility] [place] [address] [place], [place] [phone] Suzanna Dawson PA-C [address] [place], [place] [id number] Medicare Wellness (rescheduled from 04/24 with PCP) [facility] [place] Comment on above: Medicare Wellness (rescheduled from 04/24 with PCP) Start: 04-24-2024 End: 04-24-2024 Patient encounter procedure 04/24/2024 1:00 PM EDT Office Visit Family [facility] [address] [place], [place] [phone] Valeriano Beasley MD [address] [place], [place] [id number] Medicare Wellness [facility] Comment on above: Medicare Wellness Start: 04-20-2024 Annual PCP Team Chronic Disease Visit Annual PCP Team Chronic Disease Visit [facility] Start: 04-20-2024 Covid-19 Vaccine () Covid-19 Vaccine () [facility] Comment on above: Postponed from 03/24/2023 (Not Currently Available) Start: 04-20-2024 Covid-19 Vaccine (3 - Booster for Soy series) Covid-19 Vaccine (3 - Booster for Soy series) [facility] Comment on above: Postponed from 07/22/2021 (Not Currently Available) Start: 04-20-2024 Shingrix Vaccine (1 of 2) Shingrix Vaccine (1 of 2) [facility] Comment on above: Postponed from 2000 (Insurance Cov erage) Start: 04-20-2024 Urine microalbumin profile DTaP,Tdap,Td Vaccine (2 - Td or Tdap) [facility] Comment on above: Postponed from 03/04/2018 (Insurance Cov erage) Start: 04-14-2024 Hepatitis B surface antibody level LDL Cholesterol [facility] Start: 04-04-2024 End: 04-04-2024 Patient encounter procedure 04/04/2024 11:40 AM EDT Office Visit [facility] [address] [place], [place] [id number] Ni Sauceda APRN.MOTHER'S HELPER [address] [place] [address] ER Follow UP [facility] Monday03/29/2024 Tongue Swelling [facility] Comment on above: ER Follow UP [facility] Monday03/29/2024 Tongue Swelling Start: 03-24-2024 Covid-19 Vaccine () Covid-19 Vaccine ( season) [facility] Start: 03-24-2024 Covid-19 Vaccine () Covid-19 Vaccine () [facility] Start: 03-24-2024 Influenza vaccination Influenza Vaccine (#1) [facility] [facility] Start: 03-15-2024 DIABETES SCREEN DIABETES SCREEN [facility] Start: 02-07-2024 End: 05-08-2024 CREATININE BLD CREATININE BLD Lab Routine Nephropathy screen Expected: 02/07/2024, Expires: 05/08/2024 [facility] Comment on above: Expected: 02/07/2024, Expires: Start: 02-06-2024 End: 02-06-2024 Patient encounter procedure Radiology Comment on above: Other symptoms and signs involving the n ervous system [R29.818] Start: 01-01-2024 End: 01-01-2024 Patient encounter procedure 01/01/2024 3:40 PM EDT Office Visit Neurology [address] [place] [address] Patria Khanna Jr., MD [address] [facility] [address] [place] [address] Balance problems [R26.89] Neurology Comment on above: Balance problems [R26.89] Start: 01-01-2024 End: 04-01-2024 GALLO BY IFA WITH REFLEX GALLO BY IFA WITH REFLEX Lab Routine Balance problems Neuropathy Abnormality of gait Expected: 01/01/2024, Expires: 04/01/2024 [facility] Comment on above: Expected: 01/01/2024, Expires: Start: 01-01-2024 End: 04-01-2024 Erythrocyte sedimentation rate SEDIMENTATION RATE, WESTERGREN Lab Routine Balance problems Neuropathy Abnormality of gait Expected: 01/01/2024, Expires: 04/01/2024 [facility] Comment on above: Expected: 01/01/2024, Expires: Start: 01-01-2024 End: 04-01-2024 HEAVY METALS SCRN BL HEAVY METALS SCRN BL Lab Routine Balance problems Neuropathy Abnormality of gait Expected: 01/01/2024, Expires: 04/01/2024 [facility] Work Phone: Comment on above: Expected: 01/01/2024, Expires: Start: 01-01-2024 End: 04-01-2024 Methylmalonate [Moles/volume] in Serum or Plasma METHYLMALONIC ACID Lab Routine Balance problems Neuropathy Abnormality of gait Expected: 01/01/2024, Expires: 04/01/2024 [facility] Comment on above: Expected: 01/01/2024, Expires: Start: 01-01-2024 End: 04-01-2024 PROTEIN ELECTROPHORESIS SERUM W/INTERP PROTEIN ELECTROPHORESIS SERUM W/INTERP Lab Routine Balance problems Neuropathy Abnormality of gait Expected: 01/01/2024, Expires: 04/01/2024 [facility] Comment on above: Expected: 01/01/2024, Expires: Start: 01-01-2024 End: 04-01-2024 Pyridoxine [Mass/volume] in Serum or Plasma VITAMIN B6/PYRIDOXIN Lab Routine Balance problems Neuropathy Abnormality of gait Expected: 01/01/2024, Expires: 04/01/2024 [facility] Comment on above: Expected: 01/01/2024, Expires: Start: 10-17-2023 End: 01-16-2024 Cobalamin (Vitamin B12) [Mass/volume] in Serum or Plasma [facility] Work Phone: Comment on above: Expected: 10/17/2023, Expires: Start: 10-17-2023 End: 01-16-2024 Comprehensive metabolic 2000 panel - Serum or Plasma [facility] Work Phone: Comment on above: Expected: 10/17/2023, Expires: Start: 10-17-2023 End: 01-16-2024 LIPID PANEL, NONFASTING [facility] Work Phone: Comment on above: Expected: 10/17/2023, Expires: 4 Start: 10-17-2023 End: 01-16-2024 Prostate Specific Ag Free [Mass/volume] in Serum or Plasma [facility] Work Phone: Comment on above: Expected: 10/17/2023, Expires: 4 Start: 10-17-2023 End: 01-16-2024 Urate [Mass/volume] in Serum or Plasma [facility] Work Phone: Comment on above: Expected: 10/17/2023, Expires: 4 Start: 10-13-2023 ANNUAL PCP TEAM CHRONIC DISEASE VISIT ANNUAL PCP TEAM CHRONIC DISEASE VISIT [facility] Start: 10-06-2023 Hepatitis B surface antibody level LDL CHOLESTEROL [facility] Start: 09-14-2023 ANNUAL PCP TEAM CHRONIC DISEASE VISIT ANNUAL PCP TEAM CHRONIC DISEASE VISIT [facility] Start: 09-14-2023 BP CONTROLLED (<130/80) BP CONTROLLED (<130/80) [facility] Start: 09-14-2023 Hepatitis B surface antibody level LDL CHOLESTEROL [facility] Start: 08-21-2023 End: 11-20-2023 CREATININE BLD CREATININE BLD Lab Routine Essential hypertension, benign Kidney lesion Expected: 08/21/2023, Expires: 11/20/2023 [facility] Work Phone: Comment on above: Expected: 08/21/2023, Expires: Start: 07-24-2023 Advance Directive Discussion Advance Directive Discussion [facility] Start: 04-18-2023 ANNUAL PCP TEAM CHRONIC DISEASE VISIT ANNUAL PCP TEAM CHRONIC DISEASE VISIT [facility] Start: 04-18-2023 SHINGRIX VACCINE (1 of 2) SHINGRIX VACCINE (1 of 2) [facility] Comment on above: Postponed from 2000 (Insurance Cov erage) Start: 04-18-2023 Urine microalbumin profile DTAP,TDAP,TD (2 - Td or Tdap) [facility] Comment on above: Postponed from 03/04/2018 (Insurance Cov erage) Start: 04-14-2023 End: 06-14-2023 25-hydroxyvitamin D3 [Mass/volume] in Serum or Plasma VITAMIN D 25 HYDROXY Lab Routine Low vitamin D level Expected: 04/14/2023, Expires: 06/14/2023 [facility] Work Phone: Comment on above: Expected: 04/14/2023, Expires: Start: 04-14-2023 End: 06-14-2023 CBC W Auto Differential panel - Blood CBC + DIFF Lab Routine Essential hypertension, benign NSTEMI (non-ST elevated myocardial infarction) (HCC) Coronary artery disease due to lipid rich plaque Expected: 04/14/2023, Expires: 06/14/2023 [facility] Work Phone: Comment on above: Expected: 04/14/2023, Expires: Start: 04-14-2023 End: 06-14-2023 Comprehensive metabolic 2000 panel - Serum or Plasma COMP METABOLIC PANEL Lab Routine Essential hypertension, benign Expected: 04/14/2023, Expires: 06/14/2023 [facility] Work Phone: Comment on above: Expected: 04/14/2023, Expires: Start: 04-14-2023 End: 06-14-2023 LIPID PANEL, NONFASTING LIPID PANEL, NONFASTING Lab Routine Mixed hyperlipidemia Expected: 04/14/2023, Expires: 06/14/2023 [facility] Work Phone: Comment on above: Expected: 04/14/2023, Expires: Start: 04-14-2023 End: 06-14-2023 Prostate Specific Ag Free [Mass/volume] in Serum or Plasma PSA FREE Lab Routine Elevated PSA Expected: 04/14/2023, Expires: 06/14/2023 [facility] Work Phone: Comment on above: Expected: 04/14/2023, Expires: Start: 04-14-2023 End: 06-14-2023 Urate [Mass/volume] in Serum or Plasma URIC ACID BLOOD Lab Routine Gout without tophus Expected: 04/14/2023, Expires: 06/14/2023 [facility] Work Phone: Comment on above: Expected: 04/14/2023, Expires: 3 Start: 04-14-2023 End: 06-14-2023 Urinalysis complete panel - Urine URINALYSIS, WITH MICROSCOPIC Lab Routine Essential hypertension, benign Expected: 04/14/2023, Expires: 06/14/2023 [facility] Work Phone: Comment on above: Expected: 04/14/2023, Expires: 3 Start: 04-13-2023 Hepatitis B surface antibody level LDL CHOLESTEROL [facility] Start: 03-24-2023 Influenza vaccination INFLUENZA (Season Ended) [facility] Start: 12-06-2022 ANNUAL PCP TEAM CHRONIC DISEASE VISIT ANNUAL PCP TEAM CHRONIC DISEASE VISIT [facility] Start: 10-12-2022 End: 12-12-2022 CBC W Auto Differential panel - Blood [facility] Work Phone: Comment on above: Expected: 10/12/2022, Expires: 3 Start: 10-12-2022 End: 12-12-2022 Iron and Iron binding capacity panel - Serum or Plasma [facility] Work Phone: Comment on above: Expected: 10/12/2022, Expires: 3 Start: 10-07-2022 End: 12-07-2022 Hepatic function 2000 panel - Serum or Plasma HEPATIC FUNCTION PNL Lab Routine Essential hypertension, benign Mixed hyperlipidemia Expected: 10/07/2022, Expires: 12/07/2022 [facility] Work Phone: Comment on above: Expected: 10/07/2022, Expires: 3 Start: 10-07-2022 End: 12-07-2022 LIPID PANEL, NONFASTING LIPID PANEL, NONFASTING Lab Routine Essential hypertension, benign Mixed hyperlipidemia Coronary artery disease due to lipid rich plaque Expected: 10/07/2022, Expires: 12/07/2022 [facility] Work Phone: Comment on above: Expected: 10/07/2022, Expires: 3 Start: 10-07-2022 End: 12-07-2022 Prostate Specific Ag Free [Mass/volume] in Serum or Plasma PSA FREE Lab Routine Elevated PSA Expected: 10/07/2022, Expires: 12/07/2022 [facility] Work Phone: Comment on above: Expected: 10/07/2022, Expires: Start: 09-10-[address] [facility] Start: 09-10-[address] [facility] Start: 09-07-2022 Referral to occupational therapist [facility] Start: 09-07-[address] [facility] Start: 09-06-[address] [facility] Work Phone: Start: 09-06-2022 Notification of physician [facility] Start: 09-06-[address] [facility] Start: 09-06-2022 Provision of activity privileges [facility] Start: 09-06-[address] [facility] Start: 09-06-2022 Taking patient vital signs [facility] Start: 09-06-[address] [facility] Start: 09-06-2022 [facility] Start: 09-04-2022 End: 09-05-2022 [facility] Start: 09-04-2022 Administration of blood product [facility] Start: 09-04-2022 Administration of blood product [facility] Start: 09-04-2022 Catheterization of vein [facility] Start: 09-04-2022 Administration of blood product [facility] Start: 09-04-2022 Catheterization of vein [facility] Start: 09-04-[address] [facility] Start: 09-04-2022 Notification of physician [facility] Start: 09-03-2022 Chart related administrative procedure 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 Start: 09-02-2022 [facility] Start: 09-02-2022 Assessment of risk of venous thromboembolism [facility] Start: 09-02-[address] [facility] Start: 09-02-[address] [facility] Start: 09-02-2022 Insertion of catheter into peripheral vein [facility] Start: 09-02-2022 Introduction of urinary catheter [facility] Start: 09-02-2022 Measuring intake and output [facility] Start: 09-02-2022 Providing care according to standard [facility] Start: 09-02-2022 Provision of activity privileges [facility] Start: 09-02-2022 Referral to gastroenterology service [facility] Start: 09-02-[address] [facility] Start: 09-02-2022 [facility] Start: 09-02-2022 End: 09-02-2022 Following clinical pathway protocol [facility] Start: 09-02-[address] [facility] Start: 09-02-2022 Patient referral to dietitian [facility] Start: 07-24-2022 ADVANCE DIRECTIVE DISCUSSION ADVANCE DIRECTIVE DISCUSSION [facility] Start: 07-24-2022 DEPRESSION ASSESSMENT DEPRESSION ASSESSMENT [facility] Start: 05-25-2022 Patient referral to dietitian [facility] Start: 04-12-2022 End: 06-12-2022 25-hydroxyvitamin D3 [Mass/volume] in Serum or Plasma VITAMIN D 25 HYDROXY Lab Routine Low vitamin D level Expected: 04/12/2022, Expires: 06/12/2022 [facility] Work Phone: Comment on above: Expected: 04/12/2022, Expires: 2 Start: 04-12-2022 End: 06-12-2022 CBC W Auto Differential panel - Blood CBC + DIFF Lab Routine Medication management Expected: 04/12/2022, Expires: 06/12/2022 [facility] Work Phone: Comment on above: Expected: 04/12/2022, Expires: 2 Start: 04-12-2022 End: 06-12-2022 Comprehensive metabolic 2000 panel - Serum or Plasma COMP METABOLIC PANEL Lab Routine Essential hypertension, benign Mixed hyperlipidemia Expected: 04/12/2022, Expires: 06/12/2022 [facility] Work Phone: Comment on above: Expected: 04/12/2022, Expires: 2 Start: 04-12-2022 End: 06-12-2022 LIPID PANEL, NONFASTING LIPID PANEL, NONFASTING Lab Routine Coronary artery disease due to lipid rich plaque Essential hypertension, benign Mixed hyperlipidemia Expected: 04/12/2022, Expires: 06/12/2022 [facility] Work Phone: Comment on above: Expected: 04/12/2022, Expires: 2 Start: 04-12-2022 End: 06-12-2022 Prostate Specific Ag Free [Mass/volume] in Serum or Plasma PSA FREE Lab Routine Elevated PSA Expected: 04/12/2022, Expires: 06/12/2022 [facility] Work Phone: Comment on above: Expected: 04/12/2022, Expires: 2 Start: 04-12-2022 End: 06-12-2022 Urate [Mass/volume] in Serum or Plasma URIC ACID BLOOD Lab Routine Gout without tophus Expected: 04/12/2022, Expires: 06/12/2022 [facility] Work Phone: Comment on above: Expected: 04/12/2022, Expires: 2 Start: 04-12-2022 End: 06-12-2022 Urinalysis complete panel - Urine URINALYSIS, WITH MICROSCOPIC Lab Routine Essential hypertension, benign Mixed hyperlipidemia Expected: 04/12/2022, Expires: 06/12/2022 [facility] Work Phone: Comment on above: Expected: 04/12/2022, Expires: 2 Start: 03-25-2022 Patient referral to dietitian [facility] Work Phone: Start: 03-24-2022 Influenza vaccination [facility] Start: 03-15-2022 ANNUAL PCP TEAM CHRONIC DISEASE VISIT ANNUAL PCP TEAM CHRONIC DISEASE VISIT [facility] Start: 03-15-2022 BP CONTROLLED (<130/80) BP CONTROLLED (<130/80) [facility] Start: 03-15-2022 Hepatitis B surface antibody level LDL CHOLESTEROL [facility] Start: 03-15-2022 SHINGRIX VACCINE (1 of 2) SHINGRIX VACCINE (1 of 2) [facility] Comment on above: Postponed from 2000 (Insurance Cov erage) Start: 03-15-2022 Urine microalbumin profile DTAP,TDAP,TD (2 - Td or Tdap) [facility] Comment on above: Postponed from 03/04/2018 (Insurance Cov erage) Start: 09-24-2021 COVID-19 VACCINE (3 - Booster for Soy series) COVID-19 VACCINE (3 - Booster for Soy series) [facility] Start: 07-24-2021 ADVANCE DIRECTIVE DISCUSSION ADVANCE DIRECTIVE DISCUSSION [facility] Start: 07-24-2021 DEPRESSION ASSESSMENT DEPRESSION ASSESSMENT [facility] Start: 07-22-2021 COVID-19 VACCINE (3 - Booster for Soy series) COVID-19 VACCINE (3 - Booster for Soy series) [facility] Start: 11-26-2020 COVID-19 VACCINE (2 - Booster for Soy series) COVID-19 VACCINE (2 - Booster for Soy series) [facility] Start: 03-04-2018 Urine microalbumin profile [facility] Start: 03-08-2017 FECAL OCCULT BLOOD FECAL OCCULT BLOOD [facility] Start: 03-08-2017 Screening for malignant neoplasm of colon Fecal Occult Blood [facility] Start: 2010 Hepatitis B Vaccine (1 of 3 - Risk 3-dose series) Hepatitis B Vaccine (1 of 3 - Risk 3-dose series) [facility] Start: 2010 RSV Vaccine (1 - 1-dose 60+ series) RSV Vaccine (1 - 1-dose 60+ series) [facility] Start: 2010 RSV Vaccine (1 - Risk 60-74 years 1-dose series) RSV Vaccine (1 - Risk 60-74 years 1-dose series) [facility] Start: 2000 SHINGRIX VACCINE (1 of 2) SHINGRIX VACCINE (1 of 2) [facility] Start: 10-20-1995 COLOGUARD (FIT-DNA) COLOGUARD (FIT-DNA) [facility] Start: 10-20-[address] COLONOGRAPHY [facility] Start: 10-20-1995 Screening for malignant neoplasm of colon [facility] Start: 10-20-1995 SIGMOIDOSCOPY SIGMOIDOSCOPY [facility] Start: 1969 Hepatitis A Vaccine (1 of 2 - Risk 2-dose series) Hepatitis A Vaccine (1 of 2 - Risk 2-dose series) [facility] Start: 1950 Abdominal aortic aneurysm screening Abdominal Aortic Aneurysm Screening [facility] Bacteria identified in Sputum by Respiratory culture [facility] Bilirubin measuremen t, urine [facility] Blood ammonia measurement [facility] C reactive protein [Mass/volume] in Serum or Plasma [facility] Calculus analysis [facility] CBC W Auto Different ial panel - Blood [facility] CBC W Auto Different ial panel - Blood [facility] Complement C1 estera se inhibitor.functional/Comp lement C1 esterase inhibitor.total in Serum or Plasma [facility] Comprehensive metabo lic 1999 panel - Serum or Plasma [facility] Comprehensive metabo lic 1999 panel - Serum or Plasma [facility] End: 09-19-2024 Ct abdomen w/o & w/contrast material CT KIDNEY WO/W IVCON Radiology Routine Other specified disorders of kidney and ureter Kidney lesion 1 Occurrences starting 08/21/2023 until 09/19/2024 [facility] Work Phone: Comment on above: 1 Occurrences starting 08/21/2023 until 09/19/2024 Ct abdomen w/o & w/contrast material CT KIDNEY WO/W IVCON Radiology Routine Other specified disorders of kidney and ureter Kidney lesion 08/28/2023 11:58 AM EST [facility] Work Phone: End: 03-08-2025 CT Neck W contrast IV [facility] Comment on above: 1 Occurrences starting 02/07/2024 until 03/08/2025 End: 03-08-2025 CTA Head Arteries W contrast IV [facility] Work Phone: Comment on above: 1 Occurrences starting 02/07/2024 until 03/08/2025 Erythrocyte mean corpuscular volume determination [facility] Ferritin [Mass/volum e] in Serum or Plasma [facility] Folate [Moles/volume ] in Serum or Plasma [facility] Hematocrit [Volume Fraction] of Blood [facility] Hemoglobin [Mass/vol ume] in Blood [facility] Hemoglobin [Presence ] in Urine [facility] Hepatitis A virus Ig M Ab [Presence] in Serum [facility] Hepatitis B core ant ibody measurement, IgM type [facility] Hepatitis B surface antigen measurement [facility] Hepatitis C antibody measurement [facility] IgE [Units/volume] i n Serum or Plasma [facility] Iron and Iron bindin g capacity panel - Serum or Plasma [facility] Leukocytes [#/volume ] in Blood [facility] Lipid 1996 panel - S rosana or Plasma [facility] Liver stiffness by US.transient elastography [facility] Magnesium measurement [facility] Mean corpuscular hemoglobin concentration determination [facility] Mean corpuscular hemoglobin determination [facility] Measurement of k[place] es in urine using dipstick [facility] Measurement of weigh t of calculus [facility] Microscopic urinalysis [facility] MONOCLONAL PROT 24 U R W/INTERP MONOCLONAL PROT 24 UR W/INTERP Lab Routine Hypercalcemia Monoclonal gammopathy Ordered: 09/27/2024 [facility] Comment on above: Ordered: 09/27/2024 End: 01-30-2025 MR Brain WO contrast MRI BRAIN WO IVCON Radiology Routine Other symptoms and signs involving the nervous system 1 Occurrences starting 01/01/2024 until 01/30/2025 [facility] Comment on above: 1 Occurrences starting 01/01/2024 until 01/30/2025 End: 01-30-2025 MRA Head vessels WO contrast MRA BRAIN WO IVCON Radiology Routine Other symptoms and signs involving the nervous system 1 Occurrences starting 01/01/2024 until 01/30/2025 [facility] Comment on above: 1 Occurrences starting 01/01/2024 until 01/30/2025 End: 01-30-2025 MRA Neck vessels WO contrast MRA CAROTID WO IVCON Radiology Routine Other symptoms and signs involving the nervous system 1 Occurrences starting 01/01/2024 until 01/30/2025 [facility] Comment on above: 1 Occurrences starting 01/01/2024 until 01/30/2025 Neutrophil count [facility] Neutrophil percent differential count [facility] Origin of Stone [facility] Patient Education ED Angioedema [facility] Work Phone: Patient referral [facility] Work Phone: pH of Urine [facility] Platelets [#/volume] in Blood [facility] PROT ELEC UR 24HR W/ M SPIKE (P) PROT ELEC UR 24HR W/M SPIKE (P) Lab Routine Hypercalcemia Monoclonal gammopathy Ordered: 09/27/2024 [facility] Comment on above: Ordered: 09/27/2024 PROT ELEC UR 24HR W/ M SPIKE AND INTERP PROT ELEC UR 24HR W/M SPIKE AND INTERP Lab Routine Hypercalcemia Monoclonal gammopathy Ordered: 09/27/2024 [facility] Comment on above: Ordered: 09/27/2024 Protein [Mass/time] in 24 hour Urine PROTEIN, 24 HOUR URINE Lab Routine Hypercalcemia Monoclonal gammopathy Ordered: 09/27/2024 [facility] Comment on above: Ordered: 09/27/2024 Prothrombin time [facility] Prothrombin time [facility] Red blood cell count [facility] Red cell distributio n width determination [facility] Removal impacted cer umen irrigation/lvg unilat AMBULATORY EAR LAVAGE/IRRIGATION Procedures Routine Excessive ear wax, right Ordered: 04/20/2023 [facility] Work Phone: Comment on above: Ordered: 04/20/2023 Specific gravity of Urine [facility] Specimen color determination [facility] Tryptase [Mass/volum e] in Serum or Plasma [facility] Urine blood test [facility] Urine dipstick for glucose [facility] Urine dipstick for leukocyte esterase [facility] Urine dipstick for nitrite [facility] Urine dipstick for protein [facility] Urine examination [facility] Urine microscopy: epithelial cells [facility] Urine Microscopy: wh ite cells [facility] Urobilinogen [Presen ce] in Urine [facility] End: 12-01-2025 US Abdominal Aorta for screening US SCREENING FOR AAA Radiology Routine Screening for abdominal aortic aneurysm 1 Occurrences starting 11/01/2024 until 12/01/2025 [facility] Work Phone: Comment on above: 1 Occurrences starting 11/01/2024 until 12/01/[address] [facility] US Heart [facility] Vitamin B12 measurement [facility] End: 11-22-2025 XR Bones Complete Survey Views XR BONE SURVEY ROUTINE Radiology Routine Monoclonal gammopathy 1 Occurrences starting 10/23/2024 until 11/22/2025 [facility] Work Phone: Comment on above: 1 Occurrences starting 10/23/2024 until 11/22/2025 XR Bones Complete Harry rvey Views XR BONE SURVEY ROUTINE Radiology Routine Monoclonal gammopathy 10/23/2024 2:49 PM EDT [facility] Immunizations Immunization Date Immunization Notes Care Provider Fa cility 11-06-2024 respiratory syncytia l virus (RSV) vaccine, bivalent (ABRYSVO) Suzanna Dawson PA-C Work Phone: [facility] 11-06-2024 tetanus toxoid, redu el diphtheria toxoid, and acellular pertussis vaccine, adsorbed Suzanna Dawson PA-C Work Phone: [facility] 05-01-2024 COVID-19 vaccine, ag e 12+ yr ([place] [email or web address] [facility]) Suzanna Dawson PA-C Work Phone: [facility] 05-01-2024 influenza, high dose seasonal, preservative-free Suzanna Dawson PA-C Work Phone: [facility] 05-01-2024 influenza virus vacc ine, unspecified formulation Nurse Wstr Work Phone: [facility] 04-20-2023 influenza (HD-IIV4) vaccine, age 65+ yr, high dose, quadrivalent, PF (FLUZONE HIGH-DOSE) Valeriano Beasley MD Work Phone: [facility] 04-20-2023 pneumococcal (PCV20) vaccine, 20 valent (PREVNAR 20) Valeriano Beasley MD Work Phone: [facility] 04-20-2023 pneumococcal Conjuga te, unspecified formulation Valeriano Beasley MD Work Phone: [facility] Work Phone: 04-20-2023 influenza virus vacc ine, unspecified formulation Valeriano Beasley MD Work Phone: [facility] 08-12-2019 influenza, high dose seasonal, preservative-free Ganesh White MA [facility] 08-01-2018 influenza, high dose seasonal, preservative-free Ganesh White MA [facility] 08-01-2018 pneumococcal conjuga te vaccine, 13 valent Ganesh White MA [facility] 01-07-2016 pneumococcal polysaccharide vaccine, 23 valent Ganesh White MA [facility] 07-16-2013 influenza virus vacc ine, unspecified formulation Ganesh White MA [facility] 07-12-2011 influenza virus vacc ine, unspecified formulation Ganesh White MA [facility] 03-04-2008 tetanus toxoid, redu el diphtheria toxoid, and acellular pertussis vaccine, adsorbed Ganesh White [facility] Work Phone: 06-02-2005 influenza virus vacc ine, unspecified formulation Ganesh White [facility] Work Phone: Payers Date Payer Category Payer Self-pay 2022 Medicare (Managed Care) [facility] MEDICARE HMO [id number] 2022 Unknown [id number] 2022 Medicare [id number] 2022 Private Health Insurance [id number] 2021 Medicare HUMANA MEDICARE HUMANA GOLD PLUS [id number] 2021-Present [phone] [facility] [id number] [place] [id number] [facility] [id number]. 2.7.3.793916.315 2021 Medicare [id number]. 1.13.159. 2.7.3.775576.315 1950 Unknown [id number] 2.16.840.1.500129.3.579. 2.627 1950 Unknown [id number] 2.16.840.1.086641.3.579. 2.627 1950 Unknown [id number] 2.16.840.1.070811.3.579. 2.627 Unknown [id number] Unknown [id number] 2.16.840.1.263198.3.579. 2.462 Unknown [id number] 2.16.840.1.915892.3.579. 2.462 Unknown [id number] 2.16.840.1.094541.3.579. 2.462 Unknown [id number] 2.16.840.1.162680.3.579. 2.462 Unknown [id number] 2.16.840.1.308574.3.579. 2.462 Unknown [id number] 2.16.840.1.818227.3.579. 2.462 Unknown [id number] 2.16.840.1.405508.3.579. 2.462 Unknown [id number] 2.16.840.1.255564.3.579. 2.462 Unknown [id number] 2.16.840.1.695445.3.579. 2.462 Unknown [id number] 2.16.840.1.023645.3.579. 2.462 Unknown [id number] 2.16.840.1.088236.3.579. 2.462 Unknown [id number] 2.16.840.1.367976.3.579. 2.462 Unknown [id number] 2.16.840.1.738430.3.579. 2.462 Unknown [id number] 2.16.840.1.676872.3.579. 2.462 Unknown [id number] 2.16.840.1.273144.3.579. 2.462 Unknown [id number] 2.16.840.1.191296.3.579. 2.462 Unknown [id number] 2.16.840.1.037286.3.579. 2.462 Unknown [id number] 2.16840.1.805726.3.579. 2.462 Unknown [id number] 2.16.840.1.837487.3.579. 2.462 Unknown [id number] 2.16.840.1.244130.3.579. 2.462 Unknown [id number] 2.16.840.1.401603.3.579. 2.462 Unknown [id number] 2.16.840.1.389679.3.579. 2.462 Unknown [id number] 2.16.840.1.583045.3.579. 2.462 Unknown [id number] 2.16.840.1.132804.3.579. 2.462 Unknown [id number] 2.16.840.1.892226.3.579. 2.462 Unknown [id number] 2.16.840.1.809779.3.579. 2.462 Unknown [id number] 2.16.840.1.620259.3.579. 2.462 Unknown [id number] 2.16.840.1.425569.3.579. 2.462 Unknown [id number] 2.16.840.1.459827.3.579. 2.462 Social History Date Type Detail Facility Tobacco smoking status [facility] Start: 1950 Sex Assigned At Male [facility] Start: 07-12-2011 End: 12-13-2021 Tobacco smoking status NHIS Never smoked tobacco [facility] Start: 03-17-2021 End: 01-30-2025 Alcohol intake Current drinker of alcohol (finding) [facility] Start: 1950 Sex Assigned At Not on file [facility] Start: 11-22-2021 End: 04-18-2022 Exposure to SARS-CoV-2 (event) Not sure [facility] Start: 12-05-2021 History SDOH Social Connections Phone 5 [facility] Start: 12-05-2021 History SDOH Social Connections Get Together 3 [facility] Start: 12-05-2021 History SDOH Social Connections Membership 1 [facility] Start: 12-05-2021 History SDOH Social Connections Meetings 2 [facility] Start: 12-05-2021 History SDOH Social Connections Living 4 [facility] Start: 03-25-2022 End: 09-05-2023 Tobacco smoking status NHIS Unknown if ever smoked [facility] Start: 07-12-2011 End: 09-03-2024 Tobacco use and exposure Smokeless tobacco non-user [facility] Start: 12-05-2021 End: 04-20-2023 History of Social function [facility] Start: 12-05-2021 End: 04-20-2023 Social connection and isolation panel [facility] Do you belong to any clubs or organizations such as mormon groups, unions, fraternal or athletic groups, or school groups? Yes [facility] Are you now , , , , never or living with a partner? [facility] How often to you hav e a drink containing alcohol? Patient refused [facility] How hard is it for y ou to pay for the very basics like food, housing, medical care, and heating Somewhat hard [facility] (I/We) worried wheth er (my/our) food would run out before (I/we) got money to buy more. Never true [facility] In the past 12 month s, was there a time when you were not able to pay the mortgage or rent on time? No [facility] Start: 12-05-2021 Gender identity Identifies as male gender (finding) [facility] Start: 12-05-2021 Sexual orientation Heterosexual (finding) [facility] Start: 09-03-2024 End: 01-23-2025 Tobacco smoking status NHIS Ex-smoker [facility] History of tobacco use Current smoker [facility] History of tobacco use Cigarette Smoker C [facility] Start: 09-03-2024 Alcohol Comment 6 pack of beer a week on average [facility] Start: 10-04-2024 End: 11-11-2024 Sex Male (finding) [facility] Medical Equipment Procedure Code Equipment Code [...] /State Functional Status Date Assessment Result Facility 01-25-2025 Functional status Ambulates [facility] Work Phone: 12-30-2024 Functional status Chair [facility] Work Phone: 09-10-2022 Functional status Ambulates [facility] Work Phone: 01-27-2022 Functional Status Ambulating in [place], Ambulating in room [facility] 01-27-2022 Functional Status [facility] 01-27-2022 Functional Status [facility] 01-27-2022 Functional Status Room check performed [facility] 12-01-2021 Functional Status [facility] 12-01-2021 Functional Status [facility] 12-01-2021 Functional Status [facility] 12-01-2021 Functional Status [facility] 12-01-2021 Functional Status [facility] 12-01-2021 Functional Status [facility] 11-30-2021 Functional Status [facility] 11-30-2021 Functional Status [facility] 11-30-2021 Functional Status [facility] 11-30-2021 Functional Status [facility] 11-30-2021 Functional Status [facility] 11-30-2021 Functional Status [facility] 11-29-2021 Functional Status [facility] 11-29-2021 Functional Status [facility] 11-29-2021 Functional Status [facility] 12-08-2014 Are you deaf, or do you have serious difficulty hearing No 12/08/2014 6:06 PM Ganesh Cochran MA No [facility] 12-08-2014 Are you blind, or do you have serious difficulty seeing, even when wearing glasses No 12/08/2014 6:06 PM Ganesh Cochran MA No [facility] 12-08-2014 Do you have serious difficulty walking or climbing stairs No 12/08/2014 6:06 PM Ganesh Cochran MA No [facility] 12-08-2014 Do you have difficul ty dressing or bathing No 12/08/2014 6:06 PM Ganesh Cochran MA No [facility] 12-08-2014 Because of a physica l, mental, or emotional condition, do you have difficulty doing errands alone such as visiting a physician's office or shopping No 12/08/2014 6:06 PM Ganesh Cochran MA No [facility] Mental Status Date Assessment Result Facility 01-25-2025 Cognitive function Voice/Name [facility] Work Phone: 12-29-2024 Cognitive function Voice/Name [facility] Work Phone: 12-28-2024 Cognitive function Sedated [facility] Work Phone: 09-10-2022 Cognitive function Voice/Name [facility] Work Phone: 01-27-2022 Mental Status Orientation Oriented x 4 [facility] 01-27-2022 Mental Status [facility] 01-27-2022 Mental Status [facility] 12-01-2021 Mental Status [facility] 12-01-2021 Mental Status [facility] 11-30-2021 Mental Status [facility] 11-29-2021 Mental Status [facility] 11-29-2021 Mental Status [facility] 12-08-2014 Because of a physica l, mental, or emotional condition, do you have serious difficulty concentrating, remembering, or making decisions No 12/08/2014 6:06 PM EDT Ganesh White MA No [facility] Clinical Notes 08-01-2018 to 03-10-2025 Lupillo Moura LPN - 02/07/2025 12:43 PM EDTPatient Valeriano Hinton MD - 01/30/2025 11:20 AM Nahid Newman MA - 01/30/2025 11:14 AM Nahid Newman MA - 01/27/2025 9:07 AM EDT Note Date & Type Note Facility 03-10-2025 Radiology Diagnostic study note [facility] Imaging Services [address] [place] [id number] ABD Limited w/ Elastography MR#: [id number] Acct: [id number] Name: NAZARIO HUTTON Rep #: [id number] : 1950 M 74 From: Romel Pretty MD PCP: Dr. Valeriano Beasley MD Status: REG CLI Study:ABD Limited w/ Elastography Date of Exa m: 03/10/25 Exam# [id number] Ordering Dr: Tessa Blanco MD PROCEDURE: ABD LIMITED W/ ELASTOGRAPHY REASON FOR EXAM: CIRRHOSIS, R/O ASCITES COMPARISON: Prior study dated May 14, 2024. TECHNIQUE: Right upper quadrant abdominal ultrasound. Alisha ElastQ Imaging shear wave elastography for non-invasive assessment of liver tissue stiffness. Alisha EPIQ Elite. FINDINGS: LIVER: Size: Enlarged (hepatomegaly) Length: 19.9 cm Echotexture: Diffusely echogenic suggesting fatty infiltration Contour: Normal Lesions: None identified Elastography: EQI Med: 16.3 kPa EQI Med Zay: 2.31 m/s IQR/Med: 9.3 %* GALLBLADDER: No stones sludge wall thickening or tenderness. COMMON BILE DUCT: Normal measuring 3.6 mm . PANCREAS: Normal There is a 1.7 cm 1.6 cm 1.1 cm right renal cyst. There is also evidence of 2 nonobstructive intrarenal calculi. The larger measures 1.5 cm x 1.5 cm 0.7 cm. There is evidence of splenomegaly. The spleen measures 13.9 cm 6.4 cm 4.8 cm. There are calcified splenic granulomas. No right upper quadrant ascites. US/ABD Limited w/ Elastography IMPRESSION: SEVERE HEPATIC FIBROSIS / CIRRHOSIS Hepatomegaly. Right renal cyst and right intrarenal calculi. Splenomegaly. Reference Values: SRU <1.37 m/s (5.7kPa): No to mild fibrosis 1.37 m/s - 2.2 m/s: Moderate to severe fibrosis >2.2 m/s (15kPa): Significant fibrosis / cirrhosis METAVIR Score F2 or higher: 1.34 m/s (5.7kPa) F3 or higher: 1.55 m/s (7.3kPa) F4: 1.80 m/s (10kPa) * If the IQR/Med is >30%, the variance in the measurements is a large and the accuracy of the measurement may be in question. Reading Location: [facility] CC: Dr. Valeriano Beasley MD; Dr. Shubham Blanco MD ~ Accessioner: Signed [facility] 02-26-2025 Note HNO ID: [id number] Author: NAHID TURNER MA Service: ? Author Type: Map And Chart Mounter Type: Progress Notes Filed: 02/26/2025 16:53 Note Text: Outside labs, non [facility] ordered. Urology HANDP, Dr. Barron. Nahid Turner MA View External Labs - PSA Total [ID [id number]] Scan on 02/26/2025 4:55 AM by Provider, External PA-C: Abdomen Scan on 02/26/2025 7:16 AM by Provider, Bing PA-C: Dr. Barron GI HANDP: Scan on 02/26/2025 3:02 PM by Provider External PAOndinaC: Dr. Blanco [facility] 02-26-2025 Radiology Diagnostic study note [facility] Imaging Services [address] [place] [address] Abdomen Single View MR#: [id number] Acct: [id number] Name: NAZARIO HUTTON Rep #: [id number] : 1950 M 74 From: Tali Laws MD PCP: Dr. Valeriano Beasley MD Status: REG CLI Study:Abdomen Single View Date of Exam: 02/25/25 Exam# [id number] Ordering Dr: Ashley Radford PROCEDURE: ABDOMEN SINGLE VIEW 02/25/2025 REASON FOR EXAM: CALCULUS OF KIDNEY TECHNIQUE: ABDOMEN SINGLE VIEW COMPARISON: Radiographs on 09/23/2024. CT scan on 09/06/2024. FINDINGS: Bilateral renal stones are noted with the largest measuring 9 mm on the right side. Normal visualized lung bases. There is an unremarkable bowel gas pattern. There is no demonstrated free abdominal air. Normal visualized liver. Normal visualized spleen. Normal visualized kidneys. The soft tissue structures of the pelvis are unremarkable. Moderate diffuse spondylosis. RAD/Abdomen Single View IMPRESSION: Bilateral nephrolithiasis. Reading Location: [place] [address] CC: Dr. Valeriano Beasley MD; Ashley Radford ~ Accessioner: Signed [facility] 02-07-2025 Note HNO ID: [id number] Author: LUPILLO MOURA LPN Service: ? Author Type: LICENSED NURSE Type: Progress Notes Filed: 02/07/2025 13:52 Note Text: Scan on 02/07/2025 12:11 PM by Bing Salmeron PA-C: Hematology Scan on 02/07/2025 12:41 PM by Bing Salmeron PA-C: Chemistry [facility] 02-07-2025 History of Present illness Narrative Scan on 02/07/2025 12:11 PM by Bing Salmeron PA-C: Hematology Scan on 02/07/2025 12:41 PM by Bing Salmeron PA-C: Chemistry documented in this encounter [facility] 01-30-2025 Instructions Valeriano Beasley MD - 01/30/2025 12:27 PM EDT We discussed your recent hospitalization and follow-up care: - You were hospitalized for a gastrointestinal (GI) bleed caused by two bleeding angiodysplastic lesions, which are benign but can cause rectal bleeding. These were treated during your hospital stay. - You are currently taking Ferrous Sulfate (iron supplement) and Protonix (acid-reducing medication). Please continue these medications as prescribed until your follow-up with Dr. Blanco. - Your hemoglobin levels are still below normal, which may contribute to lightheadedness. To help improve your blood volume and hemoglobin: - Drink more fluids daily, aiming for at least 30 ounces. - Add one Gatorade or Powerade daily for the next 2-4 weeks to help retain fluids and maintain blood pressure. - Take 500 mg of Vitamin C daily to improve iron absorption. - Be aware that iron supplements can cause your stool to appear darker or black, which is normal. If you notice any new or concerning symptoms, such as bright red blood or significant changes in your stool, please contact our office. We discussed your upcoming appointments and tests: - You have a lab appointment on March 10 to check your iron levels and hemoglobin. - You are scheduled for a colonoscopy with Dr. Blanco on March 20. This will evaluate for any new or recurring angiodysplasia or other abnormalities. Dr. Blanco may also determine whether you should continue taking Protonix and iron based on your lab results and scope findings. - After your colonoscopy, please confirm with Dr. Blanco whether you can restart your baby aspirin, which was stopped temporarily. We discussed your dietary and lifestyle adjustments: - To prevent future GI issues and improve bowel health: - Gradually increase your dietary fiber intake to 22-26 grams per day. Start slowly to avoid gas or bloating. - Drink plenty of water with fiber to help soften stools and make them easier to pass. - Avoid straining during bowel movements to reduce the risk of further bleeding or hemorrhoid irritation. - For gas management, you can take an itax-liv-ldzrwgg product like Beano (E-L-B-E-N-O) before meals or an hour before activities like softball games to reduce gas production. We discussed your neuropathy: - You are currently taking Gabapentin for idiopathic neuropathy. Your dose has been increased to 1,200 mg twice daily. This is a common dose, and the maximum daily dose is 3,600 mg. - Gabapentin typically becomes therapeutic within 2 days, and you should notice improvement within 7-10 days of starting or increasing the dose. If you do not notice improvement or have concerns, please follow up with Dr. Khanna. Additional instructions: - Be cautious when standing up from a seated or lying position, as your blood pressure may be lower due to mild anemia. Stand up slowly to avoid dizziness or lightheadedness. - Continue monitoring for any new or worsening symptoms, including abdominal pain, nausea, vomiting, or changes in stool. Co ntact our office if these occur. Please follow up with Dr. Blacno after your colonoscopy and lab results to discuss your ongoing care plan. If you have any questions or concerns before then, feel free to reach out to our office. documented in this encounter [facility] 01-30-2025 History of Present illness Narrative Chief Complaint Patient presents with: Hospital F/U HPI Nazario Hutton is a 74 year old male who presents here today for a Hospital follow up. Pt admitted into [facility] on 01/23/25 for GI bleed. Discharge summary: Date of Admission: 01/23/25 Date of Discharge: 01/25/25 Consultations 01/23/25 23:00 Consult: Gastroenterology Routine Consulting Provider: [facility] Reason for Consult: LGIB with ABLA. Reason For Visit: LGIB WITH ABLA Discharge Diagnosis: (1) Acute lower gastrointestinal bleeding: Status: Acute K92.2 - Gastrointestinal hemorrhage, unspecified (2) ABLA (acute blood loss anemia): Status: Acute D62 - Acute posthemorrhagic anemia (3) Adverse drug reaction: Status: Acute T50.905A - Adverse effect of unspecified drugs, medicaments and biological substances, initial encounter Encounter type: initial encounter Qualified Code(s): T50.905A - Adverseeffect of unspecified drugs, medicaments and biological substances, initial encounter (4) History of GI diverticular bleed: Status: Acute Z87.19 - Personal history of other diseases of the digestive system (5) Acute cystitis without hematuria: Status: Acute N30.00 - Acute cystitis without hematuria (6) Overweight (BMI 25.0-29.9): Plan 74-year-old gentleman admitted with a dark red to maroon-colored stool x 3-day before yesterday. No abdominal pain. Patient had total 4 episodes of bright redtomorrow in color blood without stool since Monday night. Last bleeding was at 3 AM on 01/22. No abdominal pain. 1. Acute anemia of blood loss due to acute lower GI bleed suspected due to recurrent diverticular bleed: Patient is being admitted in PCU. Hemoglobin of 10.5 g/dL present on admission (down from 13.5 g/dL on December 30, 2024) with Macrocytosis of 106.2 fL present on admission. Repeat H&H in the morning 9.9/28% shows 2 g decreased from baseline therefore acute anemia of blood loss. IV PPI 40 mg once daily as it seems lower GI bleed. Clear liquid diet advance to full liquid. H&H Q6 hourly. - Admit to PCU. Keep n.p.o. except for ice chips, sips and medications. Startpantoprazole 40 mg IV twice daily. IV iron infusion ordered. Continue vitamin C. On oral ferrous sulfate at home There is no GI on-call this weekend. This was communicated to the patient. Previous colonoscopy in August 2022 for lower GI bleed at that time: Impression: - Non-bleeding internal hemorrhoids. - Diverticulosis in the recto-sigmoid colon, in the sigmoid colon, in the descending colon, at the splenic flexure and in the transverse colon. Injected. - Two 1 to 2 mm polyps in the sigmoid colon and in the cecum, removed using lift and cut and a hot snare. Resected and retrieved. Treated with argon plasma coagulation (APC). - Two bleeding colonic angiodysplastic lesions. Treated with argon plasma coagulation (APC). 01/25: Serial H&H shows that GI bleeding has stabilized. H&H dropped but dropped to 9.9 then went up 11.1 latest 10.5 g%. Patient has last bleeding on 01/22 at 3 AM, more than 72 hours. Patient ordered 1 more IV infusion and then can discharged on Protonix 40 mg daily. Advised to call GI office on 01/27/2025 to schedule outpatient colonoscopy with Dr. Chacon. Follow-up with Merrick flores of in 2 weeks. 2. Acute GI blood probably worsened by baby aspirin- Hold aspirin. 4. UA positive for Acute Cystitis without hematuria: UA negative of nitrite, LE100, WBC 10-25 cells, RBC 0-5 cells, squamous epithelial 0-5 cells. 0 bacteria. Patient denies acute urinary tract symptoms including dysuria. Start IV ceftriaxone and await culture and sensitivity data. Urine culture ordered. 5. Recent admission here from December 27, 2024 to December 30, 2024 for treatment of acute respiratory failure due to recurrent angioedema, requiring intubation: Patient was not on losartan during December admission, because he had edema from losartan in the past therefore has been discontinued. Last thought to rule out hydrated etiology. Functional C1 esterase was done and it is 102% therefore wasruled out. 6. CAD; s/p STEMI (2021) s/p stents x 4 (RCA+LAD) on BASA daily plus prn SL NTG-Hold baby aspirin but give sublingual nitroglycerin as needed if chest pain develops. 7. Overweight; with BMI of 29.9 this admission plus fatty liver disease adding to the burden of disease outlined from #1 - #6 - Weight loss will be recommended. Check TSH. 8. History of EtOH cirrhosis and former tobacco use-no leg edema. No pedal edema. Abdominal swelling, fat abdomen possible small ascites. Follow-up in [facility] 01/25: Follow-up as scheduled for stenosis 9. Essential hypertension; carvedilol and amlodipine - Hold scheduled antihypertensives in light of #1. 10. Hyperlipidemia; on atorvastatin plus ezetimibe - Hold oral medications until patient cleared for oral intake by GI. 11. Other comorbidities include anxiety and depression, chronic neuropathy on gabapentin twice daily, gout on allopurinol and chronic degenerative arthritis: Home medication reconciliation done. Labs: 01/23/25 20:21: WBC 5.4, RBC 2.92 L, Hgb 10.5 L, Hct 31.0 L, MCV 106.2 H, MCH 36.0 H, MCHC 33.9, RDW Std Deviation 53.4 H, RDW Coeff of Dorie 13.8, Plt Count 167, MPV 9.5, Immature Gran % (Auto) 0.700, Neut % (Auto) 58.3, Lymph % (Auto) 16.0 L, Stone % (Auto) 13.7 H, Eos % (Auto) 10.6 H, Baso % (Auto) 0.7, Absolute Neuts (auto) 3.1, Absolute Lymphs (auto) 0.86, Nucleated RBC % 0, Sodium 140, Potassium 3.8, Chloride 107, Carbon Dioxide 19.9 L, Anion Gap 13, BUN 12, Creatinine 0.82, Estim Creat Clear Calc 91.26, Est GFR (MDRD) Non-Af 92, BUN/Creatinine Ratio 15.1, Glucose 100 H, Hemoglobin A1c 5.5, Calcium 9.0, Magnesium 2.1, Iron 91, TIBC 270, Iron Saturation 34.0, Unsaturated IBC 179 L, Ferritin 101, Total Bilirubin 0.74, AST 35, ALT 30, Alkaline Phosphatase 103, Total Protein 6.6, Albumin 3.8, Globulin 2.9, Albumin/Globulin Ratio 1.3, [id number], Vitamin B12 1003 H 01/23/25 21:09: Urine Color Straw, Urine Clarity Clear, Urine pH 6.0, Ur Specific Bingham 1.015, Urine Protein Negative, Urine Glucose (UA) Normal, UrineKetones Negative, Urine Occult Blood Negative, Urine Nitrite Negative, Urine Bilirubin Negative, Urine Urobilinogen Normal, Ur Leukocyte Esterase 100 H, Urine RBC 0-5 SEEN, Urine WBC 10-25 SEEN, Ur Squamous Epith Cells 0-5 SEEN, Urine Bacteria 0 SEEN, Urine Mucus 0 SEEN 01/23/25 21:40: Blood Type O POSITIVE, Antibody Screen NEGATIVE 01/24/25 04:04: WBC 4.5, RBC 2.69 L, Hgb 9.9 L, Hct 28.4 L, MCV 105.6 H, MCH 36.8 H, MCHC 34.9, RDW Std Deviation 52.3 H, RDW Coeff of Dorie 14.0, Plt Count 144 L, MPV 9.6, Immature Gran % (Auto) 0.400, Neut % (Auto) 60.1, Lymph % (Auto)16.3 L, Stone % (Auto) 12.8 H, Eos % (Auto) 10.2 H, Baso % (Auto) 0.2, Absolute Neuts (auto) 2.7, Absolute Lymphs (auto) 0.74 L, Nucleated RBC % 0, Sodium 141, Potassium 3.5, Chloride 109 H, Carbon Dioxide 22.5, Anion Gap 9, BUN 11, Creatinine 0.68 L, Estim Creat Clear Calc 93.09, Est GFR (MDRD) Non-Af 98, BUN/Creatinine Ratio 15.8, Glucose 90, Calcium 8.5, Phosphorus 2.9, Total Bilirubin 0.63, AST 33, ALT 24, Alkaline Phosphatase 93, Total Protein 6.0, Albumin 3.5, Globulin 2.5, Albumin/Globulin Ratio 1.4, Triglycerides 106, Cholesterol 120, LDL Cholesterol, Calc 62, VLDL Cholesterol 21, HDL Cholesterol 37 L, Cholesterol/HDL Ratio 3.25, Serum Folate 23.30, TSH 1.920 01/24/25 08:55: PT 13.4, INR 1.0 01/24/25 11:30 Stool Stool Occult Blood (YOVANY) - Final Occult Blood Positive Discharge Instructions: Advised to call GI office on 01/27/2025 to schedule outpatient colonoscopy with Dr. Chacon for lower GI bleed Medications: Discharge Orders/Prescriptions Prescriptions: New ferrous sulfate 325 mg (65 mg iron) tablet 325 mg PO QODAY Qty: 30 2RF pantoprazole [Protonix] 40 mg tablet,delayed release (DR/EC) 40 mg PO DAILY 30 Days Qty: 30 2RF Held aspirin 81 mg capsule 81 mg PO DAILY Hold Instructions: Hold for 1 week until sees PCP. Records copies from Care Everywhere for continuity of care. Nazario Hutton is a 74-year-old male with a history of GI bleed, presenting for follow-up after recent hospitalization. Nazario was recently hospitalized for a GI bleed and was discharged on ferrous sulfate and Protonix. He received 3 iron infusions during his hospital stay, which lasted from Monday to Monday. He has a follow-up appointment with Gastroenterology and is scheduled for labs on the to assess the effectiveness of the iron supplementation. He is also scheduled for a colonoscopy on March 20 to evaluate for any new or recurrent angiodysplasia. Nazario reports no pain associated with the GI bleed, but describes the bleeding as like water and dark in color, similar to an episode 2 years ago. He denies any further bleeding since discharge, as well as any melena, abdominal pain, bloating, nausea, or emesis. He does report occasional lightheadedness and dizziness, which he attributes to his medications. He notes that his blood pressure has been a little low and inquires about the possibility of still being mildly anemic. He is currently taking ferrous sulfate once daily and vitamin C, though he is unsure of the dosage. Nazario also reports issues with gas and flatulence, which he finds embarrassing, especially during physical activities like softball and baseball. He inquires about dietary modifications to reduce gas production. He denies any current issues with hemorrhoids. Additionally, Nazario has a history of neuropathy and is under the care of Dr. Khanna. He is currently taking gabapentin, which was recently increased to 1,200 mg twice daily. He reports no burning pain, but does experience numbness and swelling in his feet, which can last for days. He also mentions a swollen tongue, which he attributes to the increased dosage of gabapentin. He is not diabetic and inquires about the duration of treatment before noticing effects. Past medical history, appointments, medications, allergies reviewed. Previous Medical History PAST MEDICAL HISTORY Diagnosis Date Advance directive discussed with patient 04/18/2022 Discussed 03/2022 Alcohol abuse 09/14/2022 6 beers a day since passed in early 2021 Alcoholic cirrhosis (HCC) 06/05/[address] Blanco Angiodysplasia of colon 01/30/202501/2025, two areas treated. 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 ezetimibe (ZETIA) 10 mg tablet Take 1 tablet by mouth once daily. amLODIPine (NORVASC) 5 mg tablet Take 1 tablet by mouth once daily. gabapentin (NEURONTIN) 300 mg capsule Take 2 capsules by mouth two times a day for 90 days. gabapentin (NEURONTIN) 300 mg capsule Take 1 [...] TABLET BY MOUTH ONCE DAILY. FOR GOUT. Blood Pressure Monitor 1 Each once daily. [...] REVIEW OF SYSTEMS SEE HPI EXAM: BP 104/64 (BP Site: Right Arm, BP Position: Sitting, BP Cuff Size: Regular Adult) Pulse 68 Resp 16 Wt 96.8 kg (213 lb 6.4 oz) BMI 30.90 kg/m Last 6 Encounter BP Readings: Date: BP: 01/30/2025 104/64 01/01/2025 122/80 12/23/2024 128/82 11/01/2024 129/73 10/23/2024 126/76 09/25/2024 134/83 General Appearance: Well appearing, alert, in no acute distress, well-hydrated, well nourished. and Overweight. Lungs: Lungs clear to auscultation. No wheezing, rhonchi, rales.. Heart: RRR without murmur, gallop, or rubs. No ectopy. Abdomen: Normal abdominal exam, Abdomen soft, non-tender. Bowel sounds normal. No masses, organomegaly. [facility] Maintenance List Medicare Advantage Annual Wellness Visit due on 07/24/2024 Hepatitis B Vaccine(1 of 3 - Risk 3-dose series) due on 11/01/2025 Hepatitis A Vaccine(1 of 2 - Risk 2-dose series) due on 11/01/2025 Shingrix Vaccine(1 of 2) due on 11/01/2025 Covid-19 Vaccine( season) due on 11/01/2025 Influenza Vaccine(1) due on 03/24/2025 Colorectal Cancer Screening due on 09/05/2025 LDL Cholesterol due on 10/30/2025 Annual PCP Team Chronic Disease Visit due on 01/30/2026 Diabetes Screening due on 10/31/2027 Lipid Screening due on 10/30/2029 DTaP,Tdap,Td Vaccine(3 - Td or Tdap) due on 11/06/2034 Abdominal Aortic Aneurysm Screening Completed Advance Directive Discussion Completed RSV Vaccine Completed Pneumococcal Vaccine: 50+ Completed Hepatitis C Screening Discontinued Data reviewed Latest Ref Rng 10/29/2014 09/02/2017 07/09/2018 08/07/2019 03/15/2021 04/13/2022 09/14/2022 10/12/2022 12/13/2022 04/14/2023 10/17/2023 04/04/2024 09/25/2024 10/30/2024 01/23/2025 WBC 3.70 - 11.00 k/uL 9.62 7.19 8.84 6.45 8.70 7.06 11.51 (H) 8.21 6.7 (E) 7.49 7.57 8.41 8.60 6.58 6.03 RBC 4.20 - 6.00 m/uL 4.26 4.54 4.36 4.54 4.36 4.20 2.79 (L) 4.08 (L) 4.76 (E) 4.48 4.11 (L) 3.67 (L) 4.36 4.05 (L) 2.94 (L) Hemoglobin 13.0 - 17.0 g/dL 14.2 14.4 14.2 15.0 14.8 14.4 9.2 (L) 12.6 (L) 15 (E) 15.6 14.1 12.8 (L) 15.0 14.0 10.3 (L) Hematocrit 39.0 - 51.0 % 42.0 44.5 44.0 46.2 45.3 44.2 29.3 (L) 40.9 46.7 (E) 46.6 42.4 39.0 43.8 41.9 31.2 (L) MCV 80.0 - 100.0 fL 98.6 98.0 100.9 (H) 101.8 (H) 103.9 (H) 105.2 (H) 105.0 (H) 100.2 (H) 98.1 ! (E) 104.0 (H) 103.2 (H) 106.3 (H) 100.5 (H) 103.5 (H) 106.1 (H) MCH 26.0 - 34.0 pg 33.3 31.7 32.6 33.0 33.9 34.3 (H) 33.0 30.9 31.5 (E) 34.8 (H) 34.3 (H) 34.9 (H) 34.4 (H) 34.6 (H) 35.0 (H) MCHC 30.5 - 36.0 g/dL 33.8 32.4 32.3 32.5 32.7 32.6 31.4 30.8 32.1 (E) 33.5 33.3 32.8 34.2 33.4 33.0 RDW-CV 11.5 - 15.0 % 13.7 13.0 13.1 13.2 13.0 12.8 16.9 (H) 15.4 (H) 12.6 13.3 13.1 13.5 13.5 13.8 Platelet Count 150 - 400 k/uL 276 211 273 235 275 241 323 307 205 (E) 225 224 193 245 208 185 MPV 9.0 - 12.7 fL 10.9 10.9 10.6 10.8 10.7 10.2 10.8 10.6 10.5 10.6 10.5 10.1 10.4 10.6 Neut% % 59.4 73.6 67.1 66.6 80.6 69.7 64.9 66.6 73.4 67.8 72.0 61.5 Abs Neut (ANC) 1.45 - 7.50 k/uL 5.71 6.51 5.84 4.70 9.27 (H) 5.73 4.86 5.05 6.17 5.82 4.74 3.71 Lymph% % 21.0 10.2 8.3 12.3 7.2 7.9 12.1 11.0 7.6 9.1 9.0 13.3 Abs Lymph 1.00 - 4.00 k/uL 2.02 0.90 (L) 0.72 (L) 0.87 (L) 0.83 (L) 0.65 (L) 0.91 (L) 0.83 (L) 0.64 (L) 0.78 (L) 0.59 (L) 0.80 (L) Stone% % 8.3 11.1 12.2 13.2 7.9 11.7 13.9 13.2 11.4 9.5 10.9 12.8 Abs Stone <0.87 k/uL 0.80 0.98 (H) 1.06 (H) 0.93 (H) 0.91 (H) 0.96 (H) 1.04 (H) 1.00 (H) 0.96 (H) 0.82 0.72 0.77 Eosin% % 10.6 4.5 11.4 6.8 3.6 9.4 7.6 8.2 5.1 12.4 7.0 11.1 Abs Eosin <0.46 k/uL 1.02 (H) 0.40 0.99 (H) 0.48 (H) 0.41 0.77 (H) 0.57 (H) 0.62 (H) 0.43 1.07 (H) 0.46 (H) 0.67 (H) Baso% % 0.7 0.6 1.0 0.8 0.3 0.9 1.1 0.7 0.7 0.9 0.8 0.8 Abs Baso <0.11 k/uL 0.07 0.05 0.09 0.06 0.04 0.07 0.08 0.05 0.06 0.08 0.05 0.05 Immature Gran % % 0.3 0.4 0.4 0.4 0.3 1.8 0.3 0.3 0.5 IMMATURE GRANS (ABS) <0.10 k/uL <0.03 0.05 0.03 0.03 <0.03 0.15 (H) 0.03 <0.03 0.03 NRBC /100 WBC 0.0 0.0 0.0 0.0 0.0 0.0 0.0 0.0 0.0 Absolute nRBC <0.01 k/uL <0.01 <0.01 <0.01 <0.01 <0.01 <0.01 <0.01 <0.01 <0.01 <0.01 <0.01 <0.01 <0.01 DTYPE Auto Auto Auto Auto Auto Auto Auto Auto Auto Nucleated Reds 0 /100 WBC 0.0 0.0 Diff Type Auto Diff Auto Diff Auto Diff RDW 12.3 - 15.4 % 15.4 (E) Neutrophil % % 72.5 (E) Lymphocyte % % 7.3 (E) Monocyte % % 11.4 (E) Eosinophil % % 7.6 (E) Basophil % % 0.9 (E) NEUTROPHILS ABSOLUTE 1.4 - 7.0 k/uL 4.9 (E) LYMPHS ABSOLUTE 0.7 - 3.1 k/uL 0.49 ! (E) Reviewed hospital report. Assessment and Plan 1. Lower GI bleed (K92.2) Angiodysplasia of colon (K55.20) Recent hospitalization for lower GI bleed secondary to angiodysplasia of the colon. Hemoglobin levels dropped to 9.2 g/dL during the episode, requiring transfusion. Current hemoglobin levels are improving but still below baseline of 14-15 g/dL. Patient is on ferrous sulfate and Protonix, with follow-up labs scheduled on the to assess iron levels. No further rectal bleeding, abdominal pain, bloating, nausea, or vomiting since discharge. Patient experiences occasional lightheadedness, likely due to mild anemia. Patient has a follow-up appointment with Dr. Blanco on February 26 and a scheduled colonoscopy on March 20 to evaluate for any new or recurrent angiodysplastic lesions. - Continue ferrous sulfate once daily and Protonix as prescribed. - Increase dietary fiber intake gradually to 22-26 grams per day to prevent straining during bowel movements and reduce the risk of diverticulosis-related bleeding. - Drink at least one Gatorade or Powerade daily to maintain fluid and electrolyte balance, especially in light of low blood pressure readings. - Monitor for any signs of recurrent bleeding, such as dark or black stools, and report immediately. - Follow up with Dr. Blanco on February 26 to discuss the continuation of iron and Protonix therapy based on upcoming lab results. - Undergo scheduled colonoscopy on March 20 to assess for any new or recurrent angiodysplastic lesions. - Resume baby aspirin only after clearance from Dr. Blanco post-colonoscopy. F/u next routine or sooner if needed. Valeriano Beasley MD I spent a total of 41 minutes on the date of the service which included preparing to see the patient, [id number] patient care, completing clinical documentation, performing a medically appropriate examination, counseling and educating the patient/family/caregiver and ordering medications, tests, or procedures. Recording using [employer] software for draft documentation of the visit was discussed with the patient/authorized sales representative womens health; all questions welcomed and answered. Patient/authorized sales representative womens health agreed to proceed documented in this encounter [facility] 01-30-2025 Note HNO ID: [id number] Author: VALERIANO BEASLEY MD Service: ? Author Type: Physician Type: Progress Notes Filed: 01/30/2025 15:37 Note Text: Chief Complaint Patient presents with: Hospital F/U HPI Nazario Hutton is a 74 year old male who presents here today for a Hospital follow up. Pt admitted into [facility] on 01/23/25 for GI bleed. Discharge summary: Date of Admission: 01/23/25 Date of Discharge: 01/25/25 Consultations 01/23/25 23:00 Consult: Gastroenterology Routine Consulting Provider: [facility] Reason for Consult: LGIB with ABLA. Reason For Visit: LGIB WITH ABLA Discharge Diagnosis: (1) Acute lower gastrointestinal bleeding: Status: Acute K92.2 - Gastrointestinal hemorrhage, unspecified (2) ABLA (acute blood loss anemia): Status: Acute D62 - Acute posthemorrhagic anemia (3) Adverse drug reaction: Status: Acute T50.905A - Adverse effect of unspecified drugs, medicaments and biological substances, initial encounter Encounter type: initial encounter Qualified Code(s): T50.905A - Adverseeffect of unspecified drugs, medicaments and biological substances, initial encounter (4) History of GI diverticular bleed: Status: Acute Z87.19 - Personal history of other diseases of the digestive system (5) Acute cystitis without hematuria: Status: Acute N30.00 - Acute cystitis without hematuria (6) Overweight (BMI 25.0-29.9): Plan 74-year-old gentleman admitted with a dark red to maroon-colored stool x 3-day before yesterday. No abdominal pain. Patient had total 4 episodes of bright redtomorrow in color blood without stool since Monday night. Last bleeding was at 3 AM on 01/22. No abdominal pain. 1. Acute anemia of blood loss due to acute lower GI bleed suspected due to recurrent diverticular bleed: Patient is being admitted in PCU. Hemoglobin of 10.5 g/dL present on admission (down from 13.5 g/dL on December 30, 2024) with Macrocytosis of 106.2 fL present on admission. Repeat HANDH in the morning 9.9/28% shows 2 g decreased from baseline therefore acute anemia of blood loss. IV PPI 40 mg once daily as it seems lower GI bleed. Clear liquid diet advance to full liquid. HANDH Q6 hourly. - Admit to PCU. Keep n.p.o. except for ice chips, sips and medications. Startpantoprazole 40 mg IV twice daily. IV iron infusion ordered. Continue vitamin C. On oral ferrous sulfate at home There is no GI on-call this weekend. This was communicated to the patient. Previous colonoscopy in August 2022 for lower GI bleed at that time: Impression: - Non-bleeding internal hemorrhoids. - Diverticulosis in the recto-sigmoid colon, in the sigmoid colon, in the descending colon, at the splenic flexure and in the transverse colon. Injected. - Two 1 to 2 mm polyps in the sigmoid colon and in the cecum, removed using lift and cut and a hot snare. Resected and retrieved. Treated with argon plasma coagulation (APC). - Two bleeding colonic angiodysplastic lesions. Treated with argon plasma coagulation (APC). 01/25: Serial HANDH shows that GI bleeding has stabilized. HANDH dropped but dropped to 9.9 then went up 11.1 latest 10.5 g%. Patient has last bleeding on 01/22 at 3 AM, more than 72 hours. Patient ordered 1 more IV infusion and then can discharged on Protonix 40 mg daily. Advised to call GI office on 01/27/2025 to schedule outpatient colonoscopy with Dr. Chacon. Follow-up with Merrick flores of in 2 weeks. 2. Acute GI blood probably worsened by baby aspirin- Hold aspirin. 4. UA positive for Acute Cystitis without hematuria: UA negative of nitrite, LE100, WBC 10-25 cells, RBC 0-5 cells, squamous epithelial 0-5 cells. 0 bacteria. Patient denies acute urinary tract symptoms including dysuria. Start IV ceftriaxone and await culture and sensitivity data. Urine culture ordered. 5. Recent admission here from December 27, 2024 to December 30, 2024 for treatment of acute respiratory failure due to recurrent angioedema, requiring intubation: Patient was not on losartan during December admission, because he had edema from losartan in the past therefore has been discontinued. Last thought to rule out hydrated etiology. Functional C1 esterase was done and it is 102% therefore wasruled out. 6. CAD; s/p STEMI (2021) s/p stents x 4 (RCA+LAD) on BASA daily plus prn SL NTG-Hold baby aspirin but give sublingual nitroglycerin as needed if chest pain develops. 7. Overweight; with BMI of 29.9 this admission plus fatty liver disease adding to the burden of disease outlined from #1 - #6 - Weight loss will be recommended. Check TSH. 8. History of EtOH cirrhosis and former tobacco use-no leg edema. No pedal edema. Abdominal swelling, fat abdomen possible small ascites. Follow-up in office 01/25: Follow-up as scheduled for stenosis 9. Essential hypertension; carvedilol and amlodipine - Hold scheduled antihypertensives in light of #1. 10. Hyperlipidemia; on atorvastatin plus ezetimibe - Ho (more content not included)... [facility] 01-30-2025 Note HNO ID: [id number] Author: NAHID TURNER MA Service: ? Author Type: Map And Chart Mounter Type: Progress Notes Filed: 01/30/2025 11:15 Note Text: Scan on 01/30/2025 9:43 AM by Provider, External, PA-C: Consultation - Allergy [facility] 01-30-2025 History of Present illness Narrative Scan on 01/30/2025 9:43 AM by ProviderBing PAOndinaC: Consultation - Allergy documented in this encounter [facility] 01-27-2025 Note HNO ID: [id number] Author: NAHID TURNER MA Service: ? Author Type: Map And Chart Mounter Type: Progress Notes Filed: 01/27/2025 09:08 Note Text: Do you want Hospital f/u appt? Nahid Turner MA Scan on 01/24/2025 12:49 AM by ProviderBing PA-C: [facility] Scan on 01/24/2025 6:04 AM by Bing Salmeron PA-C: [facility] Hospitalist OV Scan on 01/25/2025 10:09 AM by Bing Salmeron PAOndinaC: [facility] Discharge summary [facility] 01-27-2025 History of Present illness Narrative Do you want Hospital f/u appt? Nahid Turner MA Scan on 01/24/2025 12:49 AM by Bing Salmeron PA-C: [facility] Scan on 01/24/2025 6:04 AM by Bing Salmeron PAOndinaC: [facility] Hospitalist OV Scan on 01/25/2025 10:09 AM by Bing Salmeron PAOndinaC: [facility] Discharge summary documented in this encounter [facility] 01-25-2025 Discharge summary Note Date/Time January 25, 2025 9:59am [facility] Medical Records Department [address] [place] [address] Discharge Summary 01/25/25 0926 MR#: [id number] Acct: [id number] Name: NAZARIO HUTTON Rep #:[id number] : 1950 74 From: Shubham Granados PCP: Dr. Valeriano Beasley MD Status:ADM IN Location: [place] [id number] Providers Date of Admission: 01/23/25 Date of Discharge: 01/25/25 Primary Care Physician: Dr. Valeriano Beasley MD Consultations 01/23/25 23:00 Consult: Gastroenterology Routine Consulting Provider: [facility] Reason for Consult: LGIB with ABLA. EMERGENT Consult: No MD Notified: Yes Date Notified: 01/23/25 Time Notified: 22:39 Method of Notification: ED Physician Initiated Reason For Visit: LGIB WITH ABLA Diagnosis Discharge Diagnosis (1) Acute lower gastrointestinal bleeding: Status: Acute Code(s): K92.2 - Gastrointestinal hemorrhage, unspecified (2) ABLA (acute blood loss anemia): Status: Acute Code(s): D62 - Acute posthemorrhagic anemia (3) Adverse drug reaction: Status: Acute Code(s): T50.905A - Adverse effect of unspecified drugs, medicaments and biological substances, initial encounter Qualifiers: Encounter type: initial encounter Qualified Code(s): T50.905A - Adverseeffect of unspecified drugs, medicaments and biological substances, initial encounter (4) History of GI diverticular bleed: Status: Acute Code(s): Z87.19 - Personal history of other diseases of the digestive system (5) Acute cystitis without hematuria: Status: Acute Code(s): N30.00 - Acute cystitis without hematuria (6) Overweight (BMI 25.0-29.9): Status: Acute Code(s): E66.3 - Overweight Plan 74-year-old gentleman admitted with a dark red to maroon-colored stool x 3-day before yesterday. No abdominal pain. Patient had total 4 episodes of bright redtomorrow in color blood without stool since Monday night. Last bleeding was at 3 AM on 01/22. No abdominal pain. 1. Acute anemia of blood loss due to acute lower GI bleed suspected due to recurrent diverticular bleed: Patient is being admitted in PCU. Hemoglobin of 10.5 g/dL present on admission (down from 13.5 g/dL on December 30, 2024) with Macrocytosis of 106.2 fL present on admission. Repeat H&H in the morning 9.9/28% shows 2 g decreased from baseline therefore acute anemia of blood loss. IV PPI 40 mg once daily as it seems lower GI bleed. Clear liquid diet advance to full liquid. H&H Q6 hourly. - Admit to PCU. Keep n.p.o. except for ice chips, sips and medications. Startpantoprazole 40 mg IV twice daily. IV iron infusion ordered. Continue vitamin C. On oral ferrous sulfate at home There is no GI on-call this weekend. This was communicated to the patient. Previous colonoscopy in August 2022 for lower GI bleed at that time: Impression: - Non-bleeding internal hemorrhoids. - Diverticulosis in the recto-sigmoid colon, in the sigmoid colon, in the descending colon, at the splenic flexure and in the transverse colon. Injected. - Two 1 to 2 mm polyps in the sigmoid colon and in the cecum, removed using lift and cut and a hot snare. Resected and retrieved. Treated with argon plasma coagulation (APC). - Two bleeding colonic angiodysplastic lesions. Treated with argon plasma coagulation (APC). 01/25: Serial H&H shows that GI bleeding has stabilized. H&H dropped but dropped to 9.9 then went up 11.1 latest 10.5 g%. Patient has last bleeding on 01/22 at 3 AM, more than 72 hours. Patient ordered 1 more IV infusion and then can discharged on Protonix 40 mg daily. Advised to call GI office on 01/27/2025 to schedule outpatient colonoscopy with Dr. Chacon. Follow-up with Merrick flroes of in 2 weeks. 2. Acute GI blood probably worsened by baby aspirin- Hold aspirin. 4. UA positive for Acute Cystitis without hematuria: UA negative of nitrite, LE100, WBC 10-25 cells, RBC 0-5 cells, squamous epithelial 0-5 cells. 0 bacteria. Patient denies acute urinary tract symptoms including dysuria. Start IV ceftriaxone and await culture and sensitivity data. Urine culture ordered. 5. Recent admission here from December 27, 2024 to December 30, 2024 for treatment of acute respiratory failure due to recurrent angioedema, requiring intubation: Patient was not on losartan during December admission, because he had edema from losartan in the past therefore has been discontinued. Last thought to rule out hydrated etiology. Functional C1 esterase was done and it is 102% therefore wasruled out. 6. CAD; s/p STEMI (2021) s/p stents x 4 (RCA+LAD) on BASA daily plus prn SL NTG-Hold baby aspirin but give sublingual nitroglycerin as needed if chest pain develops. 7. Overweight; with BMI of 29.9 this admission plus fatty liver disease adding to the burden of disease outlined from #1 - #6 - Weight loss will be recommended. Check TSH. 8. History of EtOH cirrhosis and former tobacco use-no leg edema. No pedal edema. Abdominal swelling, fat abdomen possible small ascites. Follow-up in GIoffice 01/25: Follow-up as scheduled for stenosis 9. Essential hypertension; carvedilol and amlodipine - Hold scheduled antihypertensives in light of #1. 10. Hyperlipidemia; on atorvastatin plus ezetimibe - Hold oral medications until patient cleared for oral intake by GI. 11. Other comorbidities include anxiety and depression, chronic neuropathy on gabapentin twice daily, gout on allopurinol and chronic degenerative arthritis: Home medication reconciliation done. DVT prophylaxis: Bilateral SCDs. Pharmacological prophylaxis contraindicated. Laboratory Results 01/23/25 20:21: WBC 5.4, RBC 2.92 L, Hgb 10.5 L, Hct 31.0 L, MCV 106.2 H, MCH 36.0 H, MCHC 33.9, RDW Std Deviation 53.4 H, RDW Coeff of Dorie 13.8, Plt Count 167, MPV 9.5, Immature Gran % (Auto) 0.700, Neut % (Auto) 58.3, Lymph % (Auto) 16.0 L, Stone % (Auto) 13.7 H, Eos % (Auto) 10.6 H, Baso % (Auto) 0.7, Absolute Neuts (auto) 3.1, Absolute Lymphs (auto) 0.86, Nucleated RBC % 0, Sodium 140, Potassium 3.8, Chloride 107, Carbon Dioxide 19.9 L, Anion Gap 13, BUN 12, Creatinine 0.82, Estim Creat Clear Calc 91.26, Est GFR (MDRD) Non-Af 92, BUN/Creatinine Ratio 15.1, Glucose 100 H, Hemoglobin A1c 5.5, Calcium 9.0, Magnesium 2.1, Iron 91, TIBC 270, Iron Saturation 34.0, Unsaturated IBC 179 L, Ferritin 101, Total Bilirubin 0.74, AST 35, ALT 30, Alkaline Phosphatase 103, Total Protein 6.6, Albumin 3.8, Globulin 2.9, Albumin/Globulin Ratio 1.3, [id number], Vitamin B12 1003 H 01/23/25 21:09: Urine Color Straw, Urine Clarity Clear, Urine pH 6.0, Ur Specific Bingham 1.015, Urine Protein Negative, Urine Glucose (UA) Normal, UrineKetones Negative, Urine Occult Blood Negative, Urine Nitrite Negative, Urine Bilirubin Negative, Urine Urobilinogen Normal, Ur Leukocyte Esterase 100 H, Urine RBC 0-5 SEEN, Urine WBC 10-25 SEEN, Ur Squamous Epith Cells 0-5 SEEN, Urine Bacteria 0 SEEN, Urine Mucus 0 SEEN 01/23/25 21:40: Blood Type O POSITIVE, Antibody Screen NEGATIVE 01/24/25 04:04: WBC 4.5, RBC 2.69 L, Hgb 9.9 L, Hct 28.4 L, MCV 105.6 H, MCH 36.8 H, MCHC 34.9, RDW Std Deviation 52.3 H, RDW Coeff of Dorie 14.0, Plt Count 144 L, MPV 9.6, Immature Gran % (Auto) 0.400, Neut % (Auto) 60.1, Lymph % (Auto)16.3 L, Stone % (Auto) 12.8 H, Eos % (Auto) 10.2 H, Baso % (Auto) 0.2, Absolute Neuts (auto) 2.7, Absolute Lymphs (auto) 0.74 L, Nucleated RBC % 0, Sodium 141, Potassium 3.5, Chloride 109 H, Carbon Dioxide 22.5, Anion Gap 9, BUN 11, Creatinine 0.68 L, Estim Creat Clear Calc 93.09, Est GFR (MDRD) Non-Af 98, BUN/Creatinine Ratio 15.8, Glucose 90, Calcium 8.5, Phosphorus 2.9, Total Bilirubin 0.63, AST 33, ALT 24, Alkaline Phosphatase 93, Total Protein 6.0, Albumin 3.5, Globulin 2.5, Albumin/Globulin Ratio 1.4, Triglycerides 106, Cholesterol 120, LDL Cholesterol, Calc 62, VLDL Cholesterol 21, HDL Cholesterol 37 L, Cholesterol/HDL Ratio 3.25, Serum Folate 23.30, TSH 1.920 01/24/25 08:55: PT 13.4, INR 1.0 Medications at Discharge Home Medications allopurinol 100 mg tablet 100 mg PO DAILY GOUT 03/25/22 atorvastatin 80 mg tablet 80 mg PO QHS CHOLESTEOL 03/25/22 ezetimibe 10 mg tablet 10 mg PO QHS CHOLESTEROL 02/10/23 nitroglycerin 0.4 mg sublingual tablet 0.4 mg [...] tablet 12.5 mg PO BID bp 09/19/24 gabapentin 300 mg capsule 600 mg PO BID neuropathy 09/19/24 doxepin 25 mg capsule 25 mg PO QHS mood 11/05/24 aspirin 81 mg capsule 81 mg PO DAILY heart 12/29/24 Held on 01/25/25. Instructions: Hold for 1 week until sees PCP. epinephrine 0.3 mg/0.3 mL injection, auto-injector (EpiPen) 0.3 mg (0.3 mL) IM X1 PRN anaphylaxis/angioedema #1 ea 12/30/24 cetirizine 10 mg tablet (24Hour Allergy) 10 mg PO DAILY PRN allergy symptoms 01/23/25 ferrous sulfate 325 mg (65 mg iron) tablet 325 mg PO QODAY #30 tabs 01/25/25 pantoprazole 40 mg tablet,delayed release (Protonix) 40 mg PO DAILY 1 month #30 tabs 01/25/25 Physical Exam Narrative Seen and examined. Vitals good. No fever. No further GI bleeding episode since 01/22. Tolerated clear full liquid. Diet advanced to soft diet Physical General: Alert, Oriented x3, Cooperative HEENT: Atraumatic, PERRLA, EOMI, Normocephalic. Oral: No Gingival or Mucosal Lesions/ Ulcerations Neck: Supple, No JVD, Negative Carotid Bruits Chest wall/Lungs: Air entry diminished in bilateral lung bases. No crepitation/rhonchi Cardiovascular: Regular rate and rhythm, Normal S1,S2, systolic murmur Abdomen: Bowel Sounds Present, Soft, Non Tender, mild swelling/mild ascites : No dysuria. No renal angle tenderness. No suprapubic tenderness. Extremities: No to minimal pedal edema, Capillary Refill Less than 3 Seconds Skin: No rashes, No breakdown Musculoskeletal: No Tenderness to Palpation of Joints or Extremities Neurological: Cranial nerves II-XII grossly intact, DTR 2+/4. No acute focal neurological deficit. Psych/Mental Status: Flat affect. Weight / BMI Weight Weight: 212 lb 11.937 oz Body Mass Index (BMI) 30.5 ABG / Lab / Microbiology Data 01/25/25 05:39 01/25/25 05:39 Laboratory: Laboratory Results - last 24 hr 01/24/25 14:53: Hgb 11.1 L, Hct 31.9 L 01/24/25 21:08: Hgb 11.1 L, Hct 32.8 L 01/25/25 05:39: WBC 5.5, RBC 2.92 L, Hgb 10.5 L, Hct 31.7 L, MCV 108.6 H, MCH 36.0 H, MCHC 33.1 D, RDW Std Deviation 56.2 H, RDW Coeff of Dorie 14.4, Plt [id number], MPV 9.9, Immature Gran % (Auto) 0.500, Neut % (Auto) 62.6, Lymph % (Auto) 13.0 L, Stone % (Auto) 14.3 H, Eos % (Auto) 8.9 H, Baso % (Auto) 0.7, Absolute Neuts (auto) 3.5, Absolute Lymphs (auto) 0.72 L, Nucleated RBC % 0, Sodium 142, Potassium 3.9, Chloride 111 H, Carbon Dioxide 22.6, Anion Gap 8, BUN 6, Creatinine 0.70, Estim Creat Clear Calc 94.42, Est GFR (MDRD) Non-Af 97, BUN/Creatinine Ratio 8.0 L, Glucose 93, Calcium 8.5, Phosphorus 2.8 Microbiology: Microbiology 01/24/25 11:30 Stool Stool Occult Blood (YOVANY) - Final Occult Blood Positive D/C Instructions Discharge Diet: Soft diet (Soft diet for 3 days) Weight Bearing Status: Weight bearing as tolerated Call your doctor if you observe: Fever of 101 or Higher, Coldness, Increased Pain, Numbness or Tingling, Change in Color, Inability to urinate, Inability to have a bowel movement, Shortness of breath, Dizziness, Fainting spells, Swellingin the ankles, Chest pain, Prolonged hiccupping, Increased palpitations (irregular heartbeat) and Calf discomfort DC O2, CPAP, BIPAP Needs Home O2 Discharge instructions: No When: IN 2 WEEKS Meaningful Use Info Meaningful Use Meaningful Use [...] Simvastatin 80mg Discharge Plan Admission Admit Date/Time: 01/23/25 22:37 Primary Reason for Your Visit: Acute lower GI bleed Attending Provider: Shubham Blanco Primary Care Provider: Valeriano Beasley Consulting Providers: Tessa Hampton Instructions Additional Instructions / Restrictions: Advised to call GI office on 01/27/2025 to schedule outpatient colonoscopy with Dr. Chacon for lower GI bleed Discharge Orders/Prescriptions Prescriptions: New ferrous sulfate 325 mg (65 mg iron) tablet 325 mg PO QODAY Qty: 30 2RF pantoprazole [Protonix] 40 mg tablet,delayed release (DR/EC) 40 mg PO DAILY 30 Days Qty: 30 2RF Continued cholecalciferol (vitamin D3) 125 mcg (5,000 unit) capsule 125 mcg PO DAILY vitamin B complex [B Complex-Vitamin B12] Tablet 1 tab PO DAILY omega 1-onb-awz-fish oil 100-400-1,000 mg capsule 1 cap PO DAILY PRN (Reason: supplement) isosorbide mononitrate 30 mg tablet extended release 24 hr 30 mg PO QAM gabapentin 300 mg capsule 600 mg PO BID carvedilol 12.5 mg tablet 12.5 mg PO BID amlodipine 5 mg tablet 5 mg PO QDAY doxepin 25 mg capsule 25 mg PO [...] 0RF Rx Instructions: Take with iron tablets epinephrine [EpiPen] 0.3 mg/0.3 mL auto-injector 0.3 mg IM X1 PRN (Reason: anaphylaxis/angioedema) Qty: 1 0RF Rx Instructions: for 2 doses cetirizine [24Hour Allergy] 10 mg tablet 10 mg PO DAILY PRN (Reason: allergy symptoms) Held aspirin 81 mg capsule 81 mg PO DAILY Hold Instructions: Hold for 1 week until sees PCP. Referrals / Follow Up: Valeriano Beasley MD [Primary Care Provider] - Merrick Ulloa PA [Med Staff - Adv Practice Prof] - Within 2 Weeks (To schedule colonoscopy with Dr. Chacon) Disposition Disposition (needs filled in before D/C Order can be placed): Home, Self Care Charges/Coding Addendum Addendum: Microbiology Past 72 Hours 01/24/25 11:30 Stool Stool Occult Blood (YOVANY) - Final Occult Blood Positive Laboratory Results 01/24/25 14:53: Hgb 11.1 L, Hct 31.9 L 01/24/25 21:08: Hgb 11.1 L, Hct 32.8 L 01/25/25 05:39: WBC 5.5, RBC 2.92 L, Hgb 10.5 L, Hct 31.7 L, MCV 108.6 H, MCH 36.0 H, MCHC 33.1 D, RDW Std Deviation 56.2 H, RDW Coeff of Dorie 14.4, Plt [id number], MPV 9.9, Immature Gran % (Auto) 0.500, Neut % (Auto) 62.6, Lymph % (Auto) 13.0 L, Stone % (Auto) 14.3 H, Eos % (Auto) 8.9 H, Baso % (Auto) 0.7, Absolute Neuts (auto) 3.5, Absolute Lymphs (auto) 0.72 L, Nucleated RBC % 0, Sodium 142, Potassium 3.9, Chloride 111 H, Carbon Dioxide 22.6, Anion Gap 8, BUN 6, Creatinine 0.70, Estim Creat Clear Calc 94.42, Est GFR (MDRD) Non-Af 97, BUN/Creatinine Ratio 8.0 L, Glucose 93, Calcium 8.5, Phosphorus 2.8 Visit Charges Inpatient E&M: 40367 Disch Hosp >30min 01/25/25 0930 <Electronically signed by Shubham Blanco MD> Cosigner Signature (if applicable): CC: Dr. Valeriano Beasley MD; Dr. Shubham Blanco MD; DAVID Asencio; Ahmet Chacon DO~ Signed ADDENDUM by Dr. Shubham Blanco MD on 01/25/25 at 0959 Addendum MELD sodium score is 6. Child A. 01/25/25 0959<Electronically signed by Shubham Blanco MD> Cosigner Signature (if applicable): cc: Dr. Valeriano Beasley MD; Dr. Shubham Blanco MD; DAVID Asencio; Ahmet Chacon DO ~* Signed [facility] Work Phone: [phone] 271-237107-05-2025 Discharge summary Author Shubham Blanco [facility] Note Date/Time January 25, 2025 9:26a m [facility] Medical Records Department [address] [place] [address] Instructions for Home/Discharge Instructions 01/25/25916 MR#: [id number] Acct: [id number] Name: NAZARIO HUTTON Rep #:[id number] : 1950 74 From: Shubham Granados PCP: Dr. Valeriano Beasley MD Status:ADM IN Discharge Instructions Diet Discharge Diet: Soft diet (Soft diet for 3 days) DC O2, CPAP, BIPAP needs Home O2 Discharge instructions: No Dressing / Incision Discharge Activity: Return to Normal Activity Weight Bearing Status: Weight bearing as tolerated Dressing / Incision Call your doctor if you observe: Fever of 101 or Higher, Coldness, Increased Pain, Numbness or Tingling, Change in Color, Inability to urinate, Inability to have a bowel movement, Shortness of breath, Dizziness, Fainting spells, Swellingin the ankles, Chest pain, Prolonged hiccupping, Increased palpitations (irregular heartbeat) and Calf discomfort Follow Up Care When: IN 2 WEEKS Test Results: Test results from this visit will be discussed in further detail at your follow- up appointment, if applicable. Discharge Plan Admission Admit Date/Time: 01/23/25 22:37 Primary Reason for Your Visit: Acute lower GI bleed Attending Provider: Shubham Blanco Primary Care Provider: Valeriano Beasley Consulting Providers: Tessa Hampton Instructions Additional Instructions / Restrictions: Advised to call GI office on 01/27/2025 to schedule outpatient colonoscopy with Dr. Chacon for lower GI bleed Discharge Orders/Prescriptions Prescriptions: New ferrous sulfate 325 mg (65 mg iron) tablet 325 mg PO QODAY Qty: 30 2RF pantoprazole [Protonix] 40 mg tablet,delayed release (DR/EC) 40 mg PO DAILY 30 Days Qty: 30 2RF Continued cholecalciferol (vitamin D3) 125 mcg (5,000 unit) capsule 125 mcg PO DAILY vitamin B complex [B Complex-Vitamin B12] Tablet 1 tab PO DAILY omega 8-gxj-jii-fish oil 100-400-1,000 mg capsule 1 cap PO DAILY PRN (Reason: supplement) isosorbide mononitrate 30 mg tablet extended release 24 hr 30 mg PO QAM gabapentin 300 mg capsule 600 mg PO BID carvedilol 12.5 mg tablet 12.5 mg PO BID amlodipine 5 mg tablet 5 mg PO QDAY doxepin 25 mg capsule 25 mg PO [...] 0RF Rx Instructions: Take with iron tablets epinephrine [EpiPen] 0.3 mg/0.3 mL auto-injector 0.3 mg IM X1 PRN (Reason: anaphylaxis/angioedema) Qty: 1 0RF Rx Instructions: for 2 doses cetirizine [24Hour Allergy] 10 mg tablet 10 mg PO DAILY PRN (Reason: allergy symptoms) Held aspirin 81 mg capsule 81 mg PO DAILY Hold Instructions: Hold for 1 week until sees PCP. Referrals / Follow Up: Valeriano Beasley MD [Primary Care Provider] - Merrick Ulloa PA [Med Staff - Adv Practice Prof] - Within 2 Weeks (To schedule colonoscopy with Dr. Chacon) Disposition Disposition (needs filled in before D/C Order can be placed): Home, Self Care 01/25/25925<Electronically signed by Shubham Blanco MD>Shubham Blanco MD CC: Dr. Tessa Hampton DO; Dr. Valeriano Beasley MD ~ Signed [facility] Work Phone: [phone]) 804-176907-05-2025 Discharge summary [facility] Medical Records Department [address] [place] [address] Discharge Summary 01/25/25925 MR#: [id number] Acct: [id number] Name: NAZARIO HUTTON Rep #:[id number] : 1950 74 From: Shubham Granados PCP: Dr. Valeriano Beasley MD Status:ADM IN Location: [place] [address] Providers Date of Admission: 01/23/25 Date of Discharge: 01/25/25 Primary Care Physician: Dr. Valeriano Beasley MD Consultations 01/23/25 23:00 Consult: Gastroenterology Routine Consulting Provider: [facility] Reason for Consult: LGIB with ABLA. EMERGENT Consult: No MD Notified: Yes Date Notified: 01/23/25 Time Notified: 22:39 Method of Notification: ED Physician Initiated Reason For Visit: LGIB WITH ABLA Diagnosis Discharge Diagnosis (1) Acute lower gastrointestinal bleeding: Status: Acute Code(s): K92.2 - Gastrointestinal hemorrhage, unspecified (2) ABLA (acute blood loss anemia): Status: Acute Code(s): D62 - Acute posthemorrhagic anemia (3) Adverse drug reaction: Status: Acute Code(s): T50.905A - Adverse effect of unspecified drugs, medicaments and biological substances, initial encounter Qualifiers: Encounter type: initial encounter Qualified Code(s): T50.905A - Adverseeffect of unspecified drugs,medicaments and biological substances, initial encounter (4) History of GI diverticular bleed: Status: Acute Code(s): Z87.19 - Personal history of other diseases of the digestive system (5) Acute cystitis without hematuria: Status: Acute Code(s): N30.00 - Acute cystitis without hematuria (6) Overweight (BMI 25.0-29.9): Status: Acute Code(s): E66.3 - Overweight Plan 74-year-old gentleman admitted with a dark red to maroon-colored stool x 3-day before yesterday. Noabdominal pain. Patient had total 4 episodes of bright redtomorrow in color blood without stool since Monday night. Last bleeding was at 3 AM on 01/22. No abdominal pain. 1. Acute anemia of blood loss due to acute lower GI bleed suspected due to recurrent diverticular bleed: Patient is being admitted in PCU. Hemoglobin of 10.5 g/dL present on admission (down from 13.5g/dL on December 30, 2024) with Macrocytosis of 106.2 fL present on admission. Repeat H&H in the morning 9.9/28% shows 2 g decreased from baseline therefore acute anemia of blood loss. IV PPI 40 mg once daily as it seems lower GI bleed. Clear liquid diet advance to full liquid. H&H Q6 hourly. - Admit to PCU. Keep n.p.o. except for ice chips, sips and medications. Startpantoprazole 40 mg IV twice daily. IV iron infusion ordered. Continue vitamin C. On oral ferrous sulfate at home There is no GI on-call this weekend. This was communicated to the patient. Previous colonoscopy in August 2022 for lower GI bleed at that time: Impression: - Non-bleeding internal hemorrhoids. - Diverticulosis in the recto-sigmoid colon, in the sigmoid colon, in the descending colon, at the splenic flexure and in the transverse colon. Injected. - Two 1 to 2 mm polyps in the sigmoid colon and in the cecum, removed using lift and cut and a hot snare. Resected and retrieved. Treated with argon plasma coagulation (APC). - Two bleeding colonic angiodysplastic lesions. Treated with argon plasma coagulation (APC). 01/25: Serial H&H shows that GI bleeding has stabilized. H&H dropped but dropped to 9.9 then went up 11.1 latest 10.5 g%. Patient has last bleeding on 01/22 at 3 AM, more than 72 hours. Patient ordered 1 more IV infusion and then can discharged on Protonix 40 mg daily. Advised to call GI officeon 01/27/2025 to schedule outpatient colonoscopy with Dr. Chacon. Follow-up with Merrick attendance of in 2 weeks. 2. Acute GI blood probably worsened by baby aspirin- Hold aspirin. 4. UA positive for Acute Cystitis without hematuria: UA negative of nitrite, LE100, WBC 10-25 cells, RBC 0-5 cells, squamous epithelial 0-5 cells. 0 bacteria. Patient denies acute urinary tract symptoms including dysuria. Start IV ceftriaxone and await culture and sensitivity data. Urine culture ordered. 5. Recent admission here from December 27, 2024 to December 30, 2024 for treatment of acute respiratory failure due to recurrent angioedema, requiring intubation: Patient was not on losartan during December admission, because he had edema from losartan in the past therefore has been discontinued. Last thought torule out hydrated etiology. Functional C1 esterase was done and it is 102% therefore wasruled out. 6. CAD; s/p STEMI (2021) s/p stents x 4 (RCA+LAD) on BASA daily plus prn SL NTG- Hold baby aspirin but give sublingual nitroglycerin as needed if chest pain develops. 7. Overweight; with BMI of 29.9 this admission plus fatty liver disease adding to the burden of disease outlined from #1 - #6 - Weight loss will be recommended. Check TSH. 8. History of EtOH cirrhosis and former tobacco use-no leg edema. No pedal edema. Abdominal swelling, fat abdomen possible small ascites. Follow-up in GIoffice 01/25: Follow-up as scheduled for stenosis 9. Essential hypertension; carvedilol and amlodipine - Hold scheduled antihypertensives in light of#1. 10. Hyperlipidemia; on atorvastatin plus ezetimibe - Hold oral medications until patient cleared for oral intake by GI. 11. Other comorbidities include anxiety and depression, chronic neuropathy on gabapentin twice daily, gout on allopurinol and chronic degenerative arthritis: Home medication reconciliation done. DVT prophylaxis: Bilateral SCDs. Pharmacological prophylaxis contraindicated. Laboratory Results 01/23/25 20:21: WBC 5.4, RBC 2.92 L, Hgb 10.5 L, Hct 31.0 L, MCV 106.2 H, MCH 36.0 H, MCHC 33.9, RDW Std Deviation 53.4 H, RDW Coeff of Dorie 13.8, Plt Count 167, MPV 9.5, Immature Gran % (Auto) 0.700,Neut % (Auto) 58.3, Lymph % (Auto) 16.0 L, Stone % (Auto) 13.7 H, Eos % (Auto) 10.6 H, Baso % (Auto)0.7, Absolute Neuts (auto) 3.1, Absolute Lymphs (auto) 0.86, Nucleated RBC % 0, Sodium 140, Potassium 3.8, Chloride 107, Carbon Dioxide 19.9 L, Anion Gap 13, BUN 12, Creatinine 0.82, Estim Creat Clear Calc 91.26, Est GFR (MDRD) Non-Af 92, BUN/Creatinine Ratio 15.1, Glucose 100 H, Hemoglobin A1c 5.5, Calcium 9.0, Magnesium 2.1, Iron 91, TIBC 270, Iron Saturation 34.0, Unsaturated IBC 179 L, Ferritin 101, Total Bilirubin 0.74, AST 35, ALT 30, Alkaline Phosphatase 103, Total Protein 6.6, Albumin 3.8, Globulin 2.9, Albumin/Globulin Ratio 1.3, [id number], Vitamin B12 1003 H 01/23/25 21:09: Urine Color Straw, Urine Clarity Clear, Urine pH 6.0, Ur Specific Bingham 1.015, Urine Protein Negative, Urine Glucose (UA) Normal, UrineKetones Negative, Urine Occult Blood Negative,Urine Nitrite Negative, Urine Bilirubin Negative, Urine Urobilinogen Normal, Ur Leukocyte Esterase 100 H, Urine RBC 0-5 SEEN, Urine WBC 10-25 SEEN, Ur Squamous Epith Cells 0-5 SEEN, Urine Bacteria 0 SEEN, Urine Mucus 0 SEEN 01/23/25 21:40: Blood Type O POSITIVE, Antibody Screen NEGATIVE 01/24/25 04:04: WBC 4.5, RBC 2.69 L, Hgb 9.9 L, Hct 28.4 L, MCV 105.6 H, MCH 36.8 H, MCHC 34.9, RDWStd Deviation 52.3 H, RDW Coeff of Dorie 14.0, Plt Count 144 L, MPV 9.6, Immature Gran % (Auto) 0.400, Neut % (Auto) 60.1, Lymph % (Auto)16.3 L, Stone % (Auto) 12.8 H, Eos % (Auto) 10.2 H, Baso % (Auto)0.2, Absolute Neuts (auto) 2.7, Absolute Lymphs (auto) 0.74 L, Nucleated RBC % 0, Sodium 141, Potass ium 3.5, Chloride 109 H, Carbon Dioxide 22.5, Anion Gap 9, BUN 11, Creatinine 0.68 L, Estim Creat Clear Calc 93.09, Est GFR (MDRD) Non-Af 98, BUN/Creatinine Ratio 15.8, Glucose 90, Calcium 8.5, Phosphorus 2.9, Total Bilirubin 0.63, AST 33, ALT 24, Alkaline Phosphatase 93, Total Protein 6.0, Albumin3.5, Globulin 2.5, Albumin/Globulin Ratio 1.4, Triglycerides 106, Cholesterol 120, LDL Cholesterol,Calc 62, VLDL Cholesterol 21, HDL Cholesterol 37 L, Cholesterol/HDL Ratio 3.25, Serum Folate 23.30,TSH 1.920 01/24/25 08:55: PT 13.4, INR 1.0 Medications at Discharge Home Medications allopurinol 100 [...] tablet 12.5 mg PO BID bp 09/19/24 gabapentin 300 mg capsule 600 mg PO BID neuropathy 09/19/24 doxepin 25 mg capsule 25 mg PO QHS mood 11/05/24 aspirin 81 mg capsule 81 mg PO DAILY heart 12/29/24 Held on 01/25/25. Instructions: Hold for 1 week until sees PCP. epinephrine 0.3 mg/0.3 mL injection, auto-injector (EpiPen) 0.3 mg (0.3 mL) IM X1 PRN anaphylaxis/angioedema #1 ea 12/30/24 cetirizine 10 mg tablet (24Hour Allergy) 10 mg PO DAILY PRN allergy symptoms 01/23/25 ferrous sulfate 325 mg (65 mg iron) tablet 325 mg PO QODAY #30 tabs 01/25/25 pantoprazole 40 mg tablet,delayed release (Protonix) 40 mg PO DAILY 1 month #30 tabs 01/25/25 Physical Exam Narrative Seen and examined. Vitals good. No fever. No further GI bleeding episode since 01/22. Tolerated clear full liquid. Diet advanced to soft diet Physical General: Alert, Oriented x3, Cooperative HEENT: Atraumatic, PERRLA, EOMI, Normocephalic. Oral: No Gingival or Mucosal Lesions/ Ulcerations Neck: Supple, No JVD, Negative Carotid Bruits Chest wall/Lungs: Air entry diminished in bilateral lung bases. No crepitation/rhonchi Cardiovascular: Regular rate and rhythm, Normal S1,S2, systolic murmur Abdomen: Bowel Sounds Present, Soft, Non Tender, mild swelling/mild ascites : No dysuria. No renal angle tenderness. No suprapubic tenderness. Extremities: No to minimal pedal edema, Capillary Refill Less than 3 Seconds Skin: No rashes, No breakdown Musculoskeletal: No Tenderness to Palpation of Joints or Extremities Neurological: Cranial nerves II-XII grossly intact, DTR 2+/4. No acute focal neurological deficit. Psych/Mental Status: Flat affect. Weight / BMI Weight Weight: 212 lb 11.937 oz Body Mass Index (BMI) 30.5 ABG / Lab / Microbiology Data 01/25/25 05:39 01/25/25 05:39 Laboratory: Laboratory Results - last 24 hr 01/24/25 14:53: Hgb 11.1 L, Hct 31.9 L 01/24/25 21:08: Hgb 11.1 L, Hct 32.8 L 01/25/25 05:39: WBC 5.5, RBC 2.92 L, Hgb 10.5 L, Hct 31.7 L, MCV 108.6 H, MCH 36.0 H, MCHC 33.1 D, RDW Std Deviation 56.2 H, RDW Coeff of Dorie 14.4, Plt [id number], MPV 9.9, Immature Gran % (Auto) 0.500, Neut % (Auto) 62.6, Lymph % (Auto) 13.0 L, Stone % (Auto) 14.3 H, Eos % (Auto) 8.9 H, Baso % (Auto)0.7, Absolute Neuts (auto) 3.5, Absolute Lymphs (auto) 0.72 L, Nucleated RBC % 0, Sodium 142, Potassium 3.9, Chloride 111 H, Carbon Dioxide 22.6, Anion Gap 8, BUN 6, Creatinine 0.70, Estim Creat Clear Calc 94.42, Est GFR (MDRD) Non-Af 97, BUN/Creatinine Ratio 8.0 L, Glucose 93, Calcium 8.5, Phosphorus 2.8 Microbiology: Microbiology 01/24/25 11:30 Stool Stool Occult Blood (YOVANY) - Final Occult Blood Positive D/C Instructions Discharge Diet: Soft diet (Soft diet for 3 days) Weight Bearing Status: Weight bearing as tolerated Call your doctor if you observe: Fever of 101 or Higher, Coldness, Increased Pain, Numbness or Tingling, Change in Color, Inability to urinate, Inability to have a bowel movement, Shortness of breath, Dizziness, Fainting spells, Swellingin the ankles, Chest pain, Prolonged hiccupping, Increased palpitations (irregular heartbeat) and Calf discomfort DC O2, CPAP, BIPAP Needs Home O2 Discharge instructions: No When: IN 2 WEEKS Meaningful Use Info Meaningful Use Meaningful Use [...] Simvastatin 80mg Discharge Plan Admission Admit Date/Time: 01/23/25 22:37 Primary Reason for Your Visit: Acute lower GI bleed Attending Provider: Shubham Blanco Primary Care Provider: Valeriano Beasley Consulting Providers: Tessa Hampton Instructions Additional Instructions / Restrictions: Advised to call GI office on 01/27/2025 to schedule outpatient colonoscopy with Dr. Chacon for lower GI bleed Discharge Orders/Prescriptions Prescriptions: New ferrous sulfate 325 mg (65 mg iron) tablet 325 mg PO QODAY Qty: 30 2RF pantoprazole [Protonix] 40 mg tablet,delayed release (DR/EC) 40 mg PO DAILY 30 Days Qty: 30 2RF Continued cholecalciferol (vitamin D3) 125 mcg (5,000 unit) capsule 125 mcg PO DAILY vitamin B complex [B Complex-Vitamin B12] Tablet 1 tab PO DAILY omega 7-nnu-cna-fish oil 100-400-1,000 mg capsule 1 cap PO DAILY PRN (Reason: supplement) isosorbide mononitrate 30 mg tablet extended release 24 hr 30 mg PO QAM gabapentin 300 mg capsule 600 mg PO BID carvedilol 12.5 mg tablet 12.5 mg PO BID amlodipine 5 mg tablet 5 mg PO QDAY doxepin 25 mg capsule 25 mg PO [...] 0RF Rx Instructions: Take with iron tablets epinephrine [EpiPen] 0.3 mg/0.3 mL auto-injector 0.3 mg IM X1 PRN (Reason: anaphylaxis/angioedema) Qty: 1 0RF Rx Instructions: for 2 doses cetirizine [24Hour Allergy] 10 mg tablet 10 mg PO DAILY PRN (Reason: allergy symptoms) Held aspirin 81 mg capsule 81 mg PO DAILY Hold Instructions: Hold for 1 week until sees PCP. Referrals / Follow Up: Valeriano Beasley MD [Primary Care Provider] - Merrick Ulloa PA [Med Staff - [facility] Practice Prof] - Within 2 Weeks (To schedule colonoscopy withDr. Friend) Disposition Disposition (needs filled in before D/C Order can be placed): Home, Self Care Charges/Coding Addendum Addendum: Microbiology Past 72 Hours 01/24/25 11:30 Stool Stool Occult Blood (YOVANY) - Final Occult Blood Positive Laboratory Results 01/24/25 14:53: Hgb 11.1 L, Hct 31.9 L 01/24/25 21:08: Hgb 11.1 L, Hct 32.8 L 01/25/25 05:39: WBC 5.5, RBC 2.92 L, Hgb 10.5 L, Hct 31.7 L, MCV 108.6 H, MCH 36.0 H, MCHC 33.1 D, RDW Std Deviation 56.2 H, RDW Coeff of Dorie 14.4, Plt [id number], MPV 9.9, Immature Gran % (Auto) 0.500, Neut % (Auto) 62.6, Lymph % (Auto) 13.0 L, Stone % (Auto) 14.3 H, Eos % (Auto) 8.9 H, Baso % (Auto)0.7, Absolute Neuts (auto) 3.5, Absolute Lymphs (auto) 0.72 L, Nucleated RBC % 0, Sodium 142, Potassium 3.9, Chloride 111 H, Carbon Dioxide 22.6, Anion Gap 8, BUN 6, Creatinine 0.70, Estim Creat Clear Calc 94.42, Est GFR (MDRD) Non-Af 97, BUN/Creatinine Ratio 8.0 L, Glucose 93, Calcium 8.5, Phosphorus 2.8 Visit Charges Inpatient E&M: 43457 Disch Hosp >30min 01/25/25 0930 Cosigner Signature (if applicable): CC: Dr. Valeriano Beasley MD; Dr. Shubham Blanco MD; DAVID Asencio; Ahmet Chacon DO~ Signed ADDENDUM by Dr. Shubham Blanco MD on 01/25/25 at 0959 Addendum MELD sodium score is 6. Child A. 01/25/25 0959 Cosigner Signature (if applicable): cc: Dr. Valeriano Beasley MD; Dr. Shubham Blanco MD; DAVID Asencio; Ahmet Chacon DO ~* Signed [facility]07-05-2025 Discharge summary [facility] Medical Records Department [address] [place] [address] Instructions for Home/Discharge Instructions 01/25/25916 MR#: [id number] Acct: [id number] Name: NAZARIO HUTTON Rep #:[id number] : 1950 74 From: Shubham Granados PCP: Dr. Valeriano Beasley MD Status:ADM IN Discharge Instructions Diet Discharge Diet: Soft diet (Soft diet for 3 days) DC O2, CPAP, BIPAP needs Home O2 Discharge instructions: No Dressing / Incision Discharge Activity: Return to Normal Activity Weight Bearing Status: Weight bearing as tolerated Dressing / Incision Call your doctor if you observe: Fever of 101 or Higher, Coldness, Increased Pain, Numbness or Tingling, Change in Color, Inability to urinate, Inability to have a bowel movement, Shortness of breath, Dizziness, Fainting spells, Swellingin the ankles, Chest pain, Prolonged hiccupping, Increased palpitations (irregular heartbeat) and Calf discomfort Follow Up Care When: IN 2 WEEKS Test Results: Test results from this visit will be discussed in further detail at your follow- up appointment, if applicable. Discharge Plan Admission Admit Date/Time: 01/23/25 22:37 Primary Reason for Your Visit: Acute lower GI bleed Attending Provider: Shubham Blanco Primary Care Provider: Valeriano Beasley Consulting Providers: Tessa Hampton Instructions Additional Instructions / Restrictions: Advised to call GI office on 01/27/2025 to schedule outpatient colonoscopy with Dr. [place] for lower GI bleed Discharge Orders/Prescriptions Prescriptions: New ferrous sulfate 325 mg (65 mg iron) tablet 325 mg PO QODAY Qty: 30 2RF pantoprazole [Protonix] 40 mg tablet,delayed release (DR/EC) 40 mg PO DAILY 30 Days Qty: 30 2RF Continued cholecalciferol (vitamin D3) 125 mcg (5,000 unit) capsule 125 mcg PO DAILY vitamin B complex [B Complex-Vitamin B12] Tablet 1 tab PO DAILY omega 2-igk-vss-fish oil 100-400-1,000 mg capsule 1 cap PO DAILY PRN (Reason: supplement) isosorbide mononitrate 30 mg tablet extended release 24 hr 30 mg PO QAM gabapentin 300 mg capsule 600 mg PO BID carvedilol 12.5 mg tablet 12.5 mg PO BID amlodipine 5 mg tablet 5 mg PO QDAY doxepin 25 mg capsule 25 mg PO [...] 0RF Rx Instructions: Take with iron tablets epinephrine [EpiPen] 0.3 mg/0.3 mL auto-injector 0.3 mg IM X1 PRN (Reason: anaphylaxis/angioedema) Qty: 1 0RF Rx Instructions: for 2 doses cetirizine [24Hour Allergy] 10 mg tablet 10 mg PO DAILY PRN (Reason: allergy symptoms) Held aspirin 81 mg capsule 81 mg PO DAILY Hold Instructions: Hold for 1 week until sees PCP. Referrals / Follow Up: Valeriano Beasley MD [Primary Care Provider] - Merrick Ulloa PA [Med Staff - Adv Practice Prof] - Within 2 Weeks (To schedule colonoscopy withDr. Friend) Disposition Disposition (needs filled in before D/C Order can be placed): Home, Self Care 01/25/25 [id number] Blanco MD CC: Dr. Tessa Hampton DO; Dr. Valeriano Beasley MD ~ Signed [facility]07-05-2025 [facility]07-04-2025 Progress note Author Shubham Blanco [facility] Note Date/Time January 24, 2025 12:[address] [facility] Medical Records Department [address] [place] [address] Progress Note - Hospitalist 01/24/25 0747 MR#: [id number] Acct: [id number] Name: NAZARIO HUTTON Rep #:[id number] : 1950 74 From: Shubham Granados PCP: Dr. Valeriano Beasley MD Status:ADM IN Location: [place] [address] Reason for Visit Reason for Visit: Diagnoses Acute posthemorrhagic anemia (01/23/25) Overweight (01/23/25) Gastrointestinal hemorrhage, unspecified (01/23/25) Acute cystitis without hematuria (01/23/25) Adverse effect of unspecified drugs, medicaments and biological substances, initial encounter (01/23/25) Personal history of other diseases of the digestive system (01/23/25) Objective Data Objective Data Vital Signs: Vital Signs Temp Pulse Resp BP Pulse Ox O2 Del Method 96.4 F L 70 18 127/76 H 94 Room Air 01/24/25 03:30 01/24/25 07:00 01/24/25 03:30 01/24/25 03:30 01/24/25 03:30 01/24/25 03:39 Oxygen Delivery Method Room Air Weight: 206 lb 5.643 oz Body Mass Index (BMI) 29.6 Intake & Output: Intake and Output for Last 24 Hours 01/22/25 01/23/25 01/24/25 23:59 23:59 23:59 Intake Total 250 / 250 Output Total 0 / 0 Balance 250 / 250 Lab / Micro Data 01/24/25 04:04 01/24/25 04:04 Labs: Laboratory Results - last 24 hr 01/23/25 20:21: WBC 5.4, RBC 2.92 L, Hgb 10.5 L, Hct 31.0 L, MCV 106.2 H, MCH 36.0 H, MCHC 33.9, RDW Std Deviation 53.4 H, RDW Coeff of Dorie 13.8, Plt Count 167, MPV 9.5, Immature Gran % (Auto) 0.700, Neut % (Auto) 58.3, Lymph % (Auto) 16.0 L, Stone % (Auto) 13.7 H, Eos % (Auto) 10.6 H, Baso % (Auto) 0.7, Absolute Neuts (auto) 3.1, Absolute Lymphs (auto) 0.86, Nucleated RBC % 0, Sodium 140, Potassium 3.8, Chloride 107, Carbon Dioxide 19.9 L, Anion Gap 13, BUN 12, Creatinine 0.82, Estim Creat Clear Calc 91.26, Est GFR (MDRD) Non-Af 92,BUN/Creatinine Ratio 15.1, Glucose 100 H, Hemoglobin A1c 5.5, Calcium 9.0, Magnesium 2.1, Iron 91, TIBC 270, Iron Saturation 34.0, Unsaturated IBC 179 L, Ferritin 101, Total Bilirubin 0.74, AST 35, ALT 30, Alkaline Phosphatase 103, Total Protein 6.6, Albumin 3.8, Globulin 2.9, Albumin/Globulin Ratio 1.3, [id number], Vitamin B12 1003 H 01/23/25 21:09: Urine Color Straw, Urine Clarity Clear, Urine pH 6.0, Ur Specific Bingham 1.015, Urine Protein Negative, Urine Glucose (UA) Normal, UrineKetones Negative, Urine Occult Blood Negative, Urine Nitrite Negative, Urine Bilirubin Negative, Urine Urobilinogen Normal, Ur Leukocyte Esterase 100 H, Urine RBC 0-5 SEEN, Urine WBC 10-25 SEEN, Ur Squamous Epith Cells 0-5 SEEN, Urine Bacteria 0 SEEN, Urine Mucus 0 SEEN 01/23/25 21:40: Blood Type O POSITIVE, Antibody Screen NEGATIVE 01/24/25 04:04: WBC 4.5, RBC 2.69 L, Hgb 9.9 L, Hct 28.4 L, MCV 105.6 H, MCH 36.8 H, MCHC 34.9, RDW Std Deviation 52.3 H, RDW Coeff of Dorie 14.0, Plt Count 144 L, MPV 9.6, Immature Gran % (Auto) 0.400, Neut % (Auto) 60.1, Lymph % (Auto)16.3 L, Stone % (Auto) 12.8 H, Eos % (Auto) 10.2 H, Baso % (Auto) 0.2, Absolute Neuts (auto) 2.7, Absolute Lymphs (auto) 0.74 L, Nucleated RBC % 0, Sodium 141, Potassium 3.5, Chloride 109 H, Carbon Dioxide 22.5, Anion Gap 9, BUN 11, Creatinine 0.68 L, Estim Creat Clear Calc 93.09, Est GFR (MDRD) Non-Af 98, BUN/Creatinine Ratio 15.8, Glucose 90, Calcium 8.5, Phosphorus 2.9, Total Bilirubin 0.63, AST 33, ALT 24, Alkaline Phosphatase 93, Total Protein 6.0, Albumin 3.5, Globulin 2.5, Albumin/Globulin Ratio 1.4, Serum Folate 23.30, TSH 1.920 Physical Exam Narrative Patient had total 4 episodes of bright red tomorrow in color blood without stoolsince Monday night. Last bleeding was at 3 AM on 01/22. No abdominal pain. Seen and examined General: Alert, Oriented x3, Cooperative HEENT: Atraumatic, PERRLA, EOMI, Normocephalic. Oral: No Gingival or Mucosal Lesions/ Ulcerations Neck: Supple, No JVD, Negative Carotid Bruits Chest wall/Lungs: Air entry diminished in bilateral lung bases. No crepitation/rhonchi Cardiovascular: Regular rate and rhythm, Normal S1,S2, systolic murmur Abdomen: Bowel Sounds Present, Soft, Non Tender, mild swelling/mild ascites : No dysuria. No renal angle tenderness. No suprapubic tenderness. Extremities: No to minimal pedal edema, Capillary Refill Less than 3 Seconds Skin: No rashes, No breakdown Musculoskeletal: No Tenderness to Palpation of Joints or Extremities Neurological: Cranial nerves II-XII grossly intact, DTR 2+/4. No acute focal neurological deficit. Psych/Mental Status: Flat affect. Assessment & Plan Assessment/Plan (1) Acute lower gastrointestinal bleeding: (2) ABLA (acute blood loss anemia): (3) Adverse drug reaction: QUALIFIERS: Encounter type: initial encounter Qualified Code(s): T50.905A - Adverse effect of unspecified drugs, medicaments and biological substances, initial encounter (4) History of GI diverticular bleed: (5) Acute cystitis without hematuria: (6) Overweight (BMI 25.0-29.9): PLAN: Plan 74-year-old gentleman admitted with a dark red to maroon-colored stool x 3-day before yesterday. No abdominal pain. 1. Acute anemia of blood loss due to acute lower GI bleed suspected due to recurrent diverticular bleed: Patient is being admitted in PCU. Hemoglobin of 10.5 g/dL present on admission (down from 13.5 g/dL on December 30, 2024) with Macrocytosis of 106.2 fL present on admission. Repeat H&H in the morning 9.9/28% shows 2 g decreased from baseline therefore acute anemia of blood loss. IV PPI 40 mg once daily as it seems lower GI bleed. Clear liquid diet advance to full liquid. H&H Q6 hourly. - Admit to PCU. Keep n.p.o. except for ice chips, sips and medications. Startpantoprazole 40 mg IV twice daily. IV iron infusion ordered. Continue vitamin C. On oral ferrous sulfate at home There is no GI on-call this weekend. This was communicated to the patient. Previous colonoscopy in August 2022 for lower GI bleed at that time: Impression: - Non-bleeding internal hemorrhoids. - Diverticulosis in the recto-sigmoid colon, in the sigmoid colon, in the descending colon, at the splenic flexure and in the transverse colon. Injected. - Two 1 to 2 mm polyps in the sigmoid colon and in the cecum, removed using lift and cut and a hot snare. Resected and retrieved. Treated with argon plasma coagulation (APC). - Two bleeding colonic angiodysplastic lesions. Treated with argon plasma coagulation (APC). 2. Acute GI blood probably worsened by baby aspirin- Hold aspirin. 4. UA positive for Acute Cystitis without hematuria: UA negative of nitrite, LE100, WBC 10-25 cells, RBC 0-5 cells, squamous epithelial 0-5 cells. 0 bacteria. Patient denies acute urinary tract symptoms including dysuria. Start IV ceftriaxone and await culture and sensitivity data. Urine culture ordered. 5. Recent admission here from December 27, 2024 to December 30, 2024 for treatment of acute respiratory failure due to recurrent angioedema, requiring intubation: Patient was not on losartan during December admission, because he had edema from losartan in the past therefore has been discontinued. Last thought to rule out hydrated etiology. Functional C1 esterase was done and it is 102% therefore wasruled out. 6. CAD; s/p STEMI (2021) s/p stents x 4 (RCA+LAD) on BASA daily plus prn SL NTG- Hold baby aspirin but give sublingual nitroglycerin as needed if chest pain develops. 7. Overweight; with BMI of 29.9 this admission plus fatty liver disease adding to the burden of disease outlined from #1 - #6 - Weight loss will be recommended. Check TSH. 8. History of EtOH cirrhosis and former tobacco use-no leg edema. No pedal edema. Abdominal swelling, fat abdomen possible small ascites. Follow-up in office 9. Essential hypertension; carvedilol and amlodipine - Hold scheduled antihypertensives in light of #1. 10. Hyperlipidemia; on atorvastatin plus ezetimibe - Hold oral medications until patient cleared for oral intake by GI. 11. Other comorbidities include anxiety and depression, chronic neuropathy on gabapentin twice daily, gout on allopurinol and chronic degenerative arthritis: Home medication reconciliation done. DVT prophylaxis: Bilateral SCDs. Pharmacological prophylaxis contraindicated. Laboratory Results 01/23/25 20:21: WBC 5.4, RBC 2.92 L, Hgb 10.5 L, Hct 31.0 L, MCV 106.2 H, MCH 36.0 H, MCHC 33.9, RDW Std Deviation 53.4 H, RDW Coeff of Dorie 13.8, Plt Count 167, MPV 9.5, Immature Gran % (Auto) 0.700, Neut % (Auto) 58.3, Lymph % (Auto) 16.0 L, Stone % (Auto) 13.7 H, Eos % (Auto) 10.6 H, Baso % (Auto) 0.7, Absolute Neuts (auto) 3.1, Absolute Lymphs (auto) 0.86, Nucleated RBC % 0, Sodium 140, Potassium 3.8, Chloride 107, Carbon Dioxide 19.9 L, Anion Gap 13, BUN 12, Creatinine 0.82, Estim Creat Clear Calc 91.26, Est GFR (MDRD) Non-Af 92, BUN/Creatinine Ratio 15.1, Glucose 100 H, Hemoglobin A1c 5.5, Calcium 9.0, Magnesium 2.1, Iron 91, TIBC 270, Iron Saturation 34.0, Unsaturated IBC 179 L, Ferritin 101, Total Bilirubin 0.74, AST 35, ALT 30, Alkaline Phosphatase 103, Total Protein 6.6, Albumin 3.8, Globulin 2.9, Albumin/Globulin Ratio 1.3, [id number], Vitamin B12 1003 H 01/23/25 21:09: Urine Color Straw, Urine Clarity Clear, Urine pH 6.0, Ur Specific Bingham 1.015, Urine Protein Negative, Urine Glucose (UA) Normal, UrineKetones Negative, Urine Occult Blood Negative, Urine Nitrite Negative, Urine Bilirubin Negative, Urine Urobilinogen Normal, Ur Leukocyte Esterase 100 H, Urine RBC 0-5 SEEN, Urine WBC 10-25 SEEN, Ur Squamous Epith Cells 0-5 SEEN, Urine Bacteria 0 SEEN, Urine Mucus 0 SEEN 01/23/25 21:40: Blood Type O POSITIVE, Antibody Screen NEGATIVE 01/24/25 04:04: WBC 4.5, RBC 2.69 L, Hgb 9.9 L, Hct 28.4 L, MCV 105.6 H, MCH 36.8 H, MCHC 34.9, RDW Std Deviation 52.3 H, RDW Coeff of Dorie 14.0, Plt Count 144 L, MPV 9.6, Immature Gran % (Auto) 0.400, Neut % (Auto) 60.1, Lymph % (Auto)16.3 L, Stone % (Auto) 12.8 H, Eos % (Auto) 10.2 H, Baso % (Auto) 0.2, Absolute Neuts (auto) 2.7, Absolute Lymphs (auto) 0.74 L, Nucleated RBC % 0, Sodium 141, Potassium 3.5, Chloride 109 H, Carbon Dioxide 22.5, Anion Gap 9, BUN 11, Creatinine 0.68 L, Estim Creat Clear Calc 93.09, Est GFR (MDRD) Non-Af 98, BUN/Creatinine Ratio 15.8, Glucose 90, Calcium 8.5, Phosphorus 2.9, Total Bilirubin 0.63, AST 33, ALT 24, Alkaline Phosphatase 93, Total Protein 6.0, Albumin 3.5, Globulin 2.5, Albumin/Globulin Ratio 1.4, Triglycerides 106, Cholesterol 120, LDL Cholesterol, Calc 62, VLDL Cholesterol 21, HDL Cholesterol 37 L, Cholesterol/HDL Ratio 3.25, Serum Folate 23.30, TSH 1.920 01/24/25 08:55: PT 13.4, INR 1.0 Charges/Coding Visit Charges Inpatient E&M: 73052 Subs Hosp L2 01/24/25 1215 <Electronically signed by Shubham Blanco MD> Cosigner Signature (if applicable): CC: ~ Signed [facility] Work Phone: [phone] 849-424407-04-[address] [facility] Medical Records Department [address] [place] [address] Progress Note - Hospitalist 01/24/2547 MR#: [id number] Acct: [id number] Name: NAZARIO HUTOTN Rep #:[id number] : 1950 74 From: Shubham Granados PCP: Dr. Valeriano Beasley MD Status:ADM IN Location: [place] [address] Reason for Visit Reason for Visit: Diagnoses Acute posthemorrhagic anemia (01/23/25) Overweight (01/23/25) Gastrointestinal hemorrhage, unspecified (01/23/25) Acute cystitis without hematuria (01/23/25) Adverse effect of unspecified drugs, medicaments and biological substances, initial encounter (01/23/25) Personal history of other diseases of the digestive system (01/23/25) Objective Data Objective Data Vital Signs: Vital Signs Temp Pulse Resp BP Pulse Ox O2 Del Method 96.4 F L 70 18 127/76 H 94 Room Air 01/24/25 03:30 01/24/25 07:00 01/24/25 03:30 01/24/25 03:30 01/24/25 03:30 01/24/25 03:39 Oxygen Delivery Method Room Air Weight: 206 lb 5.643 oz Body Mass Index (BMI) 29.6 Intake & Output: Intake and Output for Last 24 Hours 01/22/25 01/23/25 01/24/25 23:59 23:59 23:59 Intake Total 250 / 250 Output Total 0 / 0 Balance 250 / 250 Lab / Micro Data 01/24/25 04:04 01/24/25 04:04 Labs: Laboratory Results - last 24 hr 01/23/25 20:21: WBC 5.4, RBC 2.92 L, Hgb 10.5 L, Hct 31.0 L, MCV 106.2 H, MCH 36.0 H, MCHC 33.9, RDW Std Deviation 53.4 H, RDW Coeff of Dorie 13.8, Plt Count 167, MPV 9.5, Immature Gran % (Auto) 0.700,Neut % (Auto) 58.3, Lymph % (Auto) 16.0 L, Stone % (Auto) 13.7 H, Eos % (Auto) 10.6 H, Baso % (Auto)0.7, Absolute Neuts (auto) 3.1, Absolute Lymphs (auto) 0.86, Nucleated RBC % 0, Sodium 140, Potassium 3.8, Chloride 107, Carbon Dioxide 19.9 L, Anion Gap 13, BUN 12, Creatinine 0.82, Estim Creat Clear Calc 91.26, Est GFR (MDRD) Non-Af 92,BUN/Creatinine Ratio 15.1, Glucose 100 H,Hemoglobin A1c 5.5, Calcium 9.0, Magnesium 2.1, Iron 91, TIBC 270, Iron Saturation 34.0, Unsaturated IBC 179 L, Ferritin 101, Total Bilirubin 0.74, AST 35, ALT 30, Alkaline Phosphatase 103, Total Protein 6.6, Albumin 3.8, Globulin 2.9, Albumin/Globulin Ratio 1.3, [id number], Vitamin B12 1003 H 01/23/25 21:09: Urine Color Straw, Urine Clarity Clear, Urine pH 6.0, Ur Specific Bingham 1.015, Urine Protein Negative, Urine Glucose (UA) Normal, UrineKetones Negative, Urine Occult Blood Negative,Urine Nitrite Negative, Urine Bilirubin Negative, Urine Urobilinogen Normal, Ur Leukocyte Esterase 100 H, Urine RBC 0-5 SEEN, Urine WBC 10-25 SEEN, Ur Squamous Epith Cells 0-5 SEEN, Urine Bacteria 0 SEEN, Urine Mucus 0 SEEN 01/23/25 21:40: Blood Type O POSITIVE, Antibody Screen NEGATIVE 01/24/25 04:04: WBC 4.5, RBC 2.69 L, Hgb 9.9 L, Hct 28.4 L, MCV 105.6 H, MCH 36.8 H, MCHC 34.9, RDWStd Deviation 52.3 H, RDW Coeff of Dorie 14.0, Plt Count 144 L, MPV 9.6, Immature Gran % (Auto) 0.400, Neut % (Auto) 60.1, Lymph % (Auto)16.3 L, Stone % (Auto) 12.8 H, Eos % (Auto) 10.2 H, Baso % (Auto)0.2, Absolute Neuts (auto) 2.7, Absolute Lymphs (auto) 0.74 L, Nucleated RBC % 0, Sodium 141, Potass ium 3.5, Chloride 109 H, Carbon Dioxide 22.5, Anion Gap 9, BUN 11, Creatinine 0.68 L, Estim Creat Clear Calc 93.09, Est GFR (MDRD) Non-Af 98, BUN/Creatinine Ratio 15.8, Glucose 90, Calcium 8.5, Phosphorus 2.9, Total Bilirubin 0.63, AST 33, ALT 24, Alkaline Phosphatase 93, Total Protein 6.0, Albumin3.5, Globulin 2.5, Albumin/Globulin Ratio 1.4, Serum Folate 23.30, TSH 1.920 Physical Exam Narrative Patient had total 4 episodes of bright red tomorrow in color blood without stoolsince Monday night.Last bleeding was at 3 AM on 01/22. No abdominal pain. Seen and examined General: Alert, Oriented x3, Cooperative HEENT: Atraumatic, PERRLA, EOMI, Normocephalic. Oral: No Gingival or Mucosal Lesions/ Ulcerations Neck: Supple, No JVD, Negative Carotid Bruits Chest wall/Lungs: Air entry diminished in bilateral lung bases. No crepitation/rhonchi Cardiovascular: Regular rate and rhythm, Normal S1,S2, systolic murmur Abdomen: Bowel Sounds Present, Soft, Non Tender, mild swelling/mild ascites : No dysuria. No renal angle tenderness. No suprapubic tenderness. Extremities: No to minimal pedal edema, Capillary Refill Less than 3 Seconds Skin: No rashes, No breakdown Musculoskeletal: No Tenderness to Palpation of Joints or Extremities Neurological: Cranial nerves II-XII grossly intact, DTR 2+/4. No acute focal neurological deficit. Psych/Mental Status: Flat affect. Assessment & Plan Assessment/Plan (1) Acute lower gastrointestinal bleeding: (2) ABLA (acute blood loss anemia): (3) Adverse drug reaction: QUALIFIERS: Encounter type: initial encounter Qualified Code(s): T50.905A - Adverse effect of unspecified drugs, medicaments and biological substances, initial encounter (4) History of GI diverticular bleed: (5) Acute cystitis without hematuria: (6) Overweight (BMI 25.0-29.9): PLAN: Plan 74-year-old gentleman admitted with a dark red to maroon-colored stool x 3-day before yesterday. Noabdominal pain. 1. Acute anemia of blood loss due to acute lower GI bleed suspected due to recurrent diverticular bleed: Patient is being admitted in PCU. Hemoglobin of 10.5 g/dL present on admission (down from 13.5g/dL on December 30, 2024) with Macrocytosis of 106.2 fL present on admission. Repeat H&H in the morning 9.9/28% shows 2 g decreased from baseline therefore acute anemia of blood loss. IV PPI 40 mg once daily as it seems lower GI bleed. Clear liquid diet advance to full liquid. H&H Q6 hourly. - Admit to PCU. Keep n.p.o. except for ice chips, sips and medications. Startpantoprazole 40 mg IV twice daily. IV iron infusion ordered. Continue vitamin C. On oral ferrous sulfate at home There is no GI on-call this weekend. This was communicated to the patient. Previous colonoscopy in August 2022 for lower GI bleed at that time: Impression: - Non-bleeding internal hemorrhoids. - Diverticulosis in the recto-sigmoid colon, in the sigmoid colon, in the descending colon, at the splenic flexure and in the transverse colon. Injected. - Two 1 to 2 mm polyps in the sigmoid colon and in the cecum, removed using lift and cut and a hot snare. Resected and retrieved. Treated with argon plasma coagulation (APC). - Two bleeding colonic angiodysplastic lesions. Treated with argon plasma coagulation (APC). 2. Acute GI blood probably worsened by baby aspirin- Hold aspirin. 4. UA positive for Acute Cystitis without hematuria: UA negative of nitrite, LE100, WBC 10-25 cells, RBC 0-5 cells, squamous epithelial 0-5 cells. 0 bacteria. Patient denies acute urinary tract symptoms including dysuria. Start IV ceftriaxone and await culture and sensitivity data. Urine culture ordered. 5. Recent admission here from December 27, 2024 to December 30, 2024 for treatment of acute respiratory failure due to recurrent angioedema, requiring intubation: Patient was not on losartan during December admission, because he had edema from losartan in the past therefore has been discontinued. Last thought torule out hydrated etiology. Functional C1 esterase was done and it is 102% therefore wasruled out. 6. CAD; s/p STEMI (2021) s/p stents x 4 (RCA+LAD) on BASA daily plus prn SL NTG- Hold baby aspirin but give sublingual nitroglycerin as needed if chest pain develops. 7. Overweight; with BMI of 29.9 this admission plus fatty liver disease adding to the burden of disease outlined from #1 - #6 - Weight loss will be recommended. Check TSH. 8. History of EtOH cirrhosis and former tobacco use-no leg edema. No pedal edema. Abdominal swelling, fat abdomen possible small ascites. Follow-up in GIoffice 9. Essential hypertension; carvedilol and amlodipine - Hold scheduled antihypertensives in light of#1. 10. Hyperlipidemia; on atorvastatin plus ezetimibe - Hold oral medications until patient cleared for oral intake by GI. 11. Other comorbidities include anxiety and depression, chronic neuropathy on gabapentin twice daily, gout on allopurinol and chronic degenerative arthritis: Home medication reconciliation done. DVT prophylaxis: Bilateral SCDs. Pharmacological prophylaxis contraindicated. Laboratory Results 01/23/25 20:21: WBC 5.4, RBC 2.92 L, Hgb 10.5 L, Hct 31.0 L, MCV 106.2 H, MCH 36.0 H, MCHC 33.9, RDW Std Deviation 53.4 H, RDW Coeff of Dorie 13.8, Plt Count 167, MPV 9.5, Immature Gran % (Auto) 0.700,Neut % (Auto) 58.3, Lymph % (Auto) 16.0 L, Stone % (Auto) 13.7 H, Eos % (Auto) 10.6 H, Baso % (Auto)0.7, Absolute Neuts (auto) 3.1, Absolute Lymphs (auto) 0.86, Nucleated RBC % 0, Sodium 140, Potassium 3.8, Chloride 107, Carbon Dioxide 19.9 L, Anion Gap 13, BUN 12, Creatinine 0.82, Estim Creat Clear Calc 91.26, Est GFR (MDRD) Non-Af 92, BUN/Creatinine Ratio 15.1, Glucose 100 H, Hemoglobin A1c 5.5, Calcium 9.0, Magnesium 2.1, Iron 91, TIBC 270, Iron Saturation 34.0, Unsaturated IBC 179 L, Ferritin 101, Total Bilirubin 0.74, AST 35, ALT 30, Alkaline Phosphatase 103, Total Protein 6.6, Albumin 3.8, Globulin 2.9, Albumin/Globulin Ratio 1.3, [id number], Vitamin B12 1003 H 01/23/25 21:09: Urine Color Straw, Urine Clarity Clear, Urine pH 6.0, Ur Specific Bingham 1.015, Urine Protein Negative, Urine Glucose (UA) Normal, UrineKetones Negative, Urine Occult Blood Negative,Urine Nitrite Negative, Urine Bilirubin Negative, Urine Urobilinogen Normal, Ur Leukocyte Esterase 100 H, Urine RBC 0-5 SEEN, Urine WBC 10-25 SEEN, Ur Squamous Epith Cells 0-5 SEEN, Urine Bacteria 0 SEEN, Urine Mucus 0 SEEN 01/23/25 21:40: Blood Type O POSITIVE, Antibody Screen NEGATIVE 01/24/25 04:04: WBC 4.5, RBC 2.69 L, Hgb 9.9 L, Hct 28.4 L, MCV 105.6 H, MCH 36.8 H, MCHC 34.9, RDWStd Deviation 52.3 H, RDW Coeff of Dorie 14.0, Plt Count 144 L, MPV 9.6, Immature Gran % (Auto) 0.400, Neut % (Auto) 60.1, Lymph % (Auto)16.3 L, Stone % (Auto) 12.8 H, Eos % (Auto) 10.2 H, Baso % (Auto)0.2, Absolute Neuts (auto) 2.7, Absolute Lymphs (auto) 0.74 L, Nucleated RBC % 0, Sodium 141, Potass ium 3.5, Chloride 109 H, Carbon Dioxide 22.5, Anion Gap 9, BUN 11, Creatinine 0.68 L, Estim Creat Clear Calc 93.09, Est GFR (MDRD) Non-Af 98, BUN/Creatinine Ratio 15.8, Glucose 90, Calcium 8.5, Phosphorus 2.9, Total Bilirubin 0.63, AST 33, ALT 24, Alkaline Phosphatase 93, Total Protein 6.0, Albumin3.5, Globulin 2.5, Albumin/Globulin Ratio 1.4, Triglycerides 106, Cholesterol 120, LDL Cholesterol,Calc 62, VLDL Cholesterol 21, HDL Cholesterol 37 L, Cholesterol/HDL Ratio 3.25, Serum Folate 23.30,TSH 1.920 01/24/25 08:55: PT 13.4, INR 1.0 Charges/Coding Visit Charges Inpatient E&M: 10289 Subs Hosp L2 01/24/25 1215 Cosigner Signature (if applicable): CC: ~ Signed [facility]07-04-2025 History and physical note Author Tessa Roca [facility] Note Date/Time January 24, 2025 5:59a m [facility] Medical Records Department [address] [place] [address] H&P Exam - Hospitalist 01/23/252206 MR#: [id number] Acct: [id number] Name: NAZARIO HUTTON Rep #:[id number] : 1950 74 From: Tessa García DO PCP: Dr. Valeriano Beasley MD Status:ADM IN Location: [place] [address] HPI - General General Date of Admission: 01/23/25 Date of Service: 01/23/25 Chief Complaint: Lower GI Bleed. HPI Narrative NAZARIO HUTTON, is a 74 M with a past medical history of essential hypertension; carvedilol and amlodipine, hyperlipidemia; on atorvastatin plus ezetimibe, overweight; with BMI of 29.9 this admission, fatty liver disease, former tobacco abuse, CAD; s/p STEMI (2021) s/p stents x 4 (RCA+LAD) on BASA daily plus prn SL NTG, history of EtOH cirrhosis, history of LGIB with AVM of colon in addition to previous diverticular bleed, neuropathy; on gabapentin BID,history of Left renal calculi, depression with anxiety; on doxepin, seasonal allergies; on fexofenadine, gout; on allopurinol, OA and recent admission here from December 27, 2024 to December 30, 2024 for treatment of acute respiratory failure dueto recurrent angioedema (attributed to losartan) with patient requiring intubation who [facility] [facility] ER complaining of LGIB. Mr. Hutton reports his symptoms began approximately one day prior to admission with 1 episode of a large volume of bloody stools with hematochezia. He describes the stool as dark red to maroon colored. He denies associated nausea, vomiting or abdominal pain. He also denies related fever, chills, chestpain, palpitations, heart racing, SOB, hematuria, dysuria, headache or rash. Hestates his symptoms are very similar to his previous LGIB in 2022. In the ER hewas diagnosed with LGIB suspected to be from a recurrent diverticular source with ABLA evidenced by hemoglobin of 10.5 g/dL present on admission (down from 13.5 g/dL on December 30, 2024) with Macrocytosis of 106.2 fL present on admission due to at least in part to Adverse Drug Reaction to BASA complicated by UA positive for Acute Cystitis; without hematuria and he was then admitted to the PCU for ongoing care for a stay that is expected to extend beyond 2 midnights. [facility] Medical History (Updated 01/24/25 @ 05:[address] Tessa Hampton, DO) High serum parathyroid hormone (PTH) Heart murmur Elevated alkaline phosphatase level Elevated PSA Diverticulosis AVM (arteriovenous malformation) of colon Vitamin D deficiency Gout Alcohol abuse Essential hypertension Chest pain Anxiety Depression Myocardial infarct Chest pain Acute blood loss anemia Bloody diarrhea Coronary artery disease Atherosclerotic heart disease of grayling coronary artery without angina pectoris ST elevation [place] (STEMI) (~11/29/21) Hyperlipidemia Hypertension Home Medications ?Medication ?Instructions ?Recorded ?Last Taken ?Type allopurinol 100 mg tablet 100 mg PO DAILY GOUT 2 01/23/25 08:20 History atorvastatin 80 mg tablet 80 mg PO QHS CHOLESTEOL 09/1401/22/25 20:21 History ezetimibe 10 mg tablet 10 mg PO QHS CHOLESTEROL 05/1501/22/25 23:22 History nitroglycerin 0.4 mg sublingual 0.4 mg sublingual UD P RN Chest Pain 09/02/22 Unknown History tablet ascorbic acid (vitamin C) 500 mg 1,000 mg (2 x 500 mg) PO BIDCM 30 09/09/22 Unknown Rx tablet days #120 tabs cholecalciferol (vitamin D3) 125 125 mcg PO DAILY supp lement 09/01/23 01/23/25 08:21 History mcg (5,000 unit) capsule omega 3-dha 100 mg-epa 400 mg-fish 1 cap PO DAILY PRN supplement 09/01/23 01/23/25 08:24 History oil 1,000 mg capsule vitamin B complex (B 1 tab PO DAILY feet 09/01/23 01/23/25 08:24 History Complex-Vitamin B12 tablet) isosorbide mononitrate 30 mg 30 mg PO QAM bp 04/15/24 01/23/25 08:23 History tablet,extended release 24 hr amlodipine 5 mg tablet 5 mg PO QDAY bp 09/19/2410/15 08:20 History carvedilol 12.5 mg tablet 12.5 mg PO BID bp 09/19/24 0 01/23/25 20:21 History gabapentin 300 mg capsule 600 mg PO BID neuropathy 01/23/25 23:21 History doxepin 25 mg capsule 25 mg PO QHS mood 11/05/24 U nknown History aspirin 81 mg capsule 81 mg PO DAILY heart 5 01/23/25 08:21 History epinephrine 0.3 mg/0.3 mL 0.3 mg (0.3 mL) IM X1 PRN Unknown Rx injection, auto-injector (EpiPen) anaphylaxis/angioede ma #1 ea cetirizine 10 mg tablet (24Hour 10 mg PO DAILY PRN all ergy symptoms 01/23/25 01/23/25 08:24 History Allergy) Allergy/AdvReac Type Severity Reaction Status Date / Time losartan Allergy Severe Angioedema Verified 01/23/25 19:30 hydrochlorothiazide Allergy Hives Verified 01/23/25 19:30 Family History Mother COPD (chronic obstructive pulmonary [...] type: does not use ROS ROS Narrative Review of Systems: Constitutional: Patient denies fever or chills. Eyes: Patient denies changes in vision or discharge from eyes. ENT: Patient denies runny nose, sore throat or ear pain. Resp: Patient denies SOB or cough. CV: Patient denies chest pain, palpitations, heart racing or LE edema. GI: Patient admits to LGIB as per HPI but he denies abdominal pain, nausea or vomiting. : Patient denies dysuria or hematuria. MSK: Patient denies arthralgias or myalgias. Skin: Patient denies rash, abscess, wounds or jaundice. Psych: Patient dernies symptoms of uncontrolled depression or anxiety. Neuro: Patient denies headache, paresthesias or focal neurologic deficits. Hematology: Patient admits to hematochezia as per HPI. Endocrinology: Patient denies polyuria, polydipsia, polyphagia or heat/cold intolerance. 14 point ROS otherwise negative except for positives noted above in HPI. Vital Signs Vital Signs Vital Signs: 01/23/25 19:30 01/23/25 21:26 01/23/25 21:38 Temperature 97.3 F L 98.1 F Temperature Source Temporal Pulse Rate 88 83 70 Respiratory Rate 20 H 18 16 Blood Pressure 147/90 H 155/87 H 155/87 H Blood Pressure Mean 109 109 109 Pulse Ox 96 96 97 Oxygen Delivery Method Room Air Room Air Weight Weight: 208 lb 8.917 oz Body Mass Index (BMI) 29.9 Physical Exam Const alert, oriented x3, no apparent distress, average body habitus and healthy appearing General Appearance: cooperative HEENT normocephalic, head/scalp atraumatic and hearing grossly normal bilaterally HEENT Narrative: Mucous membranes dry. Eyes PERRL, EOMs intact bilaterally and conjunctivae normal Neck no lymphadenopathy, supple and no JVD Resp normal respiratory effort, no retractions, no use of accessory muscles and clearto auscultation bilaterally Cardio regular rate and regular rhythm Cardio Narrative: 4/6 systolic ejection murmur at LSB. GI normal to inspection, nondistended, normoactive bowel sounds, soft to palpation,non-tender and non-distended Extremity normal to inspection, full ROM and no clubbing, cyanosis or edema Skin Skin Narrative: Patient has no evidence of rash, abscess, wounds or jaundice. Neuro oriented x3, CN's II-XII intact bilaterally, moves all extremities and no focal motor deficits Sensorium / Orientation: awake, alert, oriented to person, oriented to place andoriented to time Speech: speech normal Psych affect normal Results Lab / Micro Data 01/24/25 04:04 01/24/25 04:04 Labs: Laboratory Results - last 24 hr 01/23/25 20:21: WBC 5.4, RBC 2.92 L, Hgb 10.5 L, Hct 31.0 L, MCV 106.2 H, MCH 36.0 H, MCHC 33.9, RDW Std Deviation 53.4 H, RDW Coeff of Dorie 13.8, Plt Count 167, MPV 9.5, Immature Gran % (Auto) 0.700, Neut % (Auto) 58.3, Lymph % (Auto) 16.0 L, Stone % (Auto) 13.7 H, Eos % (Auto) 10.6 H, Baso % (Auto) 0.7, Absolute Neuts (auto) 3.1, Absolute Lymphs (auto) 0.86, Nucleated RBC % 0, Sodium 140, Potassium 3.8, Chloride 107, Carbon Dioxide 19.9 L, Anion Gap 13, BUN 12, Creatinine 0.82, Estim Creat Clear Calc 91.26, Est GFR (MDRD) Non-Af 92, BUN/Creatinine Ratio 15.1, Glucose 100 H, Calcium 9.0, Total Bilirubin 0.74, AST35, ALT 30, Alkaline Phosphatase 103, Total Protein 6.6, Albumin 3.8, Globulin 2.9, Albumin/Globulin Ratio 1.3, Lipase 39 Assessment & Plan Assessment/Plan (1) Acute lower gastrointestinal bleeding: (2) ABLA (acute blood loss anemia): (3) Adverse drug reaction: QUALIFIERS: Encounter type: initial encounter Qualified Code(s): T50.905A - Adverse effect of unspecified drugs, medicaments and biological substances, initial encounter (4) History of GI diverticular bleed: (5) Acute cystitis without hematuria: (6) Overweight (BMI 25.0-29.9): PLAN: Plan 1. LGIB suspected to be from a recurrent diverticular source with ABLA evidenced by hemoglobin of 10.5 g/dL present on admission (down from 13.5 g/dL on December 30, 2024) with Macrocytosis of 106.2 fL present on admission - Admit to PCU. Keep n.p.o. except for ice chips, sips and medications. Start pantoprazole 40 mg IV twice daily. Finally, we will consult gastroenterology disease patient on rounds in the a.m. further recommendations regarding colonoscopy this admission with help appreciated advance. 2. Adverse Drug Reaction to BASA likely triggering #1 - Hold aspirin until further notice with likely need for cessation with recurrent LGIB. 3. History of LGIB with AVM of colon in addition to previous diverticular bleedcomplicating #1 & #2 - Noted. 4. UA positive for Acute Cystitis; without hematuria exacerbating #1 & #2 - Start IV ceftriaxone and await culture and sensitivity data. 5. Recent admission here from December 27, 2024 to December 30, 2024 for treatment of acute respiratory failure due to recurrent angioedema (attributed to losartan) with patient requiring intubation adding to the medical complexity of #1 - #3 - Noted. 6. CAD; s/p STEMI (2021) s/p stents x 4 (RCA+LAD) on BASA daily plus prn SL NTG- Stable. Hold baby aspirin but give sublingual nitroglycerin as needed if chest pain develops. 7. Overweight; with BMI of 29.9 this admission plus fatty liver disease adding to the burden of disease outlined from #1 - #6 - Weight loss will be recommended. Check TSH. 8. History of EtOH cirrhosis - Stable. 9. Essential hypertension; carvedilol and amlodipine - Hold scheduled antihypertensives in light of #1. 10. Hyperlipidemia; on atorvastatin plus ezetimibe - Hold oral medications until patient cleared for oral intake by GI. 11. Former tobacco abuse - Noted. 12. Neuropathy; on gabapentin BID - Restart this agent after colonoscopy. 13. History of Left renal calculi - Noted. 14. Depression with anxiety; on doxepin - Stable. 15. Seasonal allergies; on fexofenadine - Give diphenhydramine IV prn for breakthrough symptoms. 16. Gout; on allopurinol - Stable with no evidence of acute flare at this time. 17. OA - Stable. 18. DVT/GI prophylaxis - SCD's only in light of #1 contraindicating chemoprophylaxis. Pantoprazole 40 mg IV BID. Total time: Approximately (but not less than) 75 minutes. Charges/Coding Visit Charges Inpatient E&M: 66031 Init Hosp L3 01/24/25 0559 <Electronically signed by Tessa Hampton DO> Cosigner Signature (if applicable): CC: Dr. Tessa Hampton DO; Dr. Valeriano Beasley MD~ Signed [facility] Work Phone: [phone] 122-733207-04-[address] [facility] Medical Records Department [address] [place] [address] H&P Exam - Hospitalist 01/23/252206 MR#: [id number] Acct: [id number] Name: NAZARIO HUTTON Rep #:[id number] : 1950 74 From: Tessa García DO PCP: Dr. Valeriano Beasley MD Status:ADM IN Location: [facility] [id number] HPI - General General Date of Admission: 01/23/25 Date of Service: 01/23/25 Chief Complaint: Lower GI Bleed. HPI Narrative NAZARIO HUTTON, is a 74 M with a past medical history of essential hypertension; carvedilol and amlodipine, hyperlipidemia; on atorvastatin plus ezetimibe, overweight; with BMI of 29.9 this admission, fatty liver disease, former tobacco abuse, CAD; s/p STEMI (2021) s/p stents x 4 (RCA+LAD) on BASA daily plus prn SL NTG, history of EtOH cirrhosis, history of LGIB with AVM of colon in addition to previous diverticular bleed, neuropathy; on gabapentin BID,history of Left renal calculi, depressionwith anxiety; on doxepin, seasonal allergies; on fexofenadine, gout; on allopurinol, OA and recent admission here from December 27, 2024 to December 30, 2024 for treatment of acute respiratory failure dueto recurrent angioedema (attributed to losartan) with patient requiring intubation who presents to [facility] ER complaining of LGIB. Mr. Hutton reports his symptoms began approximately one day prior to admission with 1 episode ofa large volume of bloody stools with hematochezia. He describes the stool as dark red to maroon colored. He denies associated nausea, vomiting or abdominal pain. He also denies related fever, chills,chestpain, palpitations, heart racing, SOB, hematuria, dysuria, headache or rash. Hestates his symptoms are very similar to his previous LGIB in 2022. In the ER hewas diagnosed with LGIB suspected isra from a recurrent diverticular source with ABLA evidenced by hemoglobin of 10.5 g/dL present on admission (down from 13.5 g/dL on December 30, 2024) with Macrocytosis of 106.2 fL present on admission due to at least in part to Adverse Drug Reaction to BASA complicated by UA positive for Acute Cystitis; without hematuria and he was then admitted to the PCU for ongoing care for a stay that is expectedto extend beyond 2 midnights. [facility] Medical History (Updated 01/24/25 @ 05:[address] Tessa Hampton, DO) High serum parathyroid hormone (PTH) Heart murmur Elevated alkaline phosphatase level Elevated PSA Diverticulosis AVM (arteriovenous malformation) of colon Vitamin D deficiency Gout Alcohol abuse Essential hypertension Chest pain Anxiety Depression Myocardial infarct Chest pain Acute blood loss anemia Bloody diarrhea Coronary artery disease Atherosclerotic heart disease of grayling coronary artery without angina pectoris ST elevation [place] (STEMI) (~11/29/21) Hyperlipidemia Hypertension Home Medications ?Medication ?Instructions ?Recorded ?Last Taken ?Type allopurinol 100 mg tablet 100 mg PO DAILY GOUT 2 01/23/25 08:20 History atorvastatin 80 mg tablet 80 mg PO QHS CHOLESTEOL 09/1401/22/25 20:21 History ezetimibe 10 mg tablet 10 mg PO QHS CHOLESTEROL 05/1501/22/25 23:22 History nitroglycerin 0.4 mg sublingual 0.4 mg sublingual UD P RN Chest Pain 09/02/22 Unknown History tablet ascorbic acid (vitamin C) 500 mg 1,000 mg (2 x 500 mg) PO BIDCM 30 09/09/22 Unknown Rx tablet days #120 tabs cholecalciferol (vitamin D3) 125 125 mcg PO DAILY supp lement 09/01/23 01/23/25 08:21 History mcg (5,000 unit) capsule omega 3-dha 100 mg-epa 400 mg-fish 1 cap PO DAILY PRN supplement 09/01/23 01/23/25 08:24 History oil 1,000 mg capsule vitamin B complex (B 1 tab PO DAILY feet 09/01/23 01/23/25 08:24 History Complex-Vitamin B12 tablet) isosorbide mononitrate 30 mg 30 mg PO QAM bp 04/15/24 01/23/25 08:23 History tablet,extended release 24 hr amlodipine 5 mg tablet 5 mg PO QDAY bp 09/19/2410/15 08:20 History carvedilol 12.5 mg tablet 12.5 mg PO BID bp 09/19/24 0 01/23/25 20:21 History gabapentin 300 mg capsule 600 mg PO BID neuropathy 01/23/25 23:21 History doxepin 25 mg capsule 25 mg PO QHS mood 11/05/24 U nknown History aspirin 81 mg capsule 81 mg PO DAILY heart 5 01/23/25 08:21 History epinephrine 0.3 mg/0.3 mL 0.3 mg (0.3 mL) IM X1 PRN Unknown Rx injection, auto-injector (EpiPen) anaphylaxis/angioede ma #1 ea cetirizine 10 mg tablet (24Hour 10 mg PO DAILY PRN all ergy symptoms 01/23/25 01/23/25 08:24 History Allergy) Allergy/AdvReac Type Severity Reaction Status Date / Time losartan Allergy Severe Angioedema Verified 01/23/25 19:30 hydrochlorothiazide Allergy Hives Verified 01/23/25 19:30 Family History Mother COPD (chronic obstructive pulmonary [...] type: does not use ROS ROS Narrative Review of Systems: Constitutional: Patient denies fever or chills. Eyes: Patient denies changes in vision or discharge from eyes. ENT: Patient denies runny nose, sore throat or ear pain. Resp: Patient denies SOB or cough. CV: Patient denies chest pain, palpitations, heart racing or LE edema. GI: Patient admits to LGIB as per HPI but he denies abdominal pain, nausea or vomiting. : Patient denies dysuria or hematuria. MSK: Patient denies arthralgias or myalgias. Skin: Patient denies rash, abscess, wounds or jaundice. Psych: Patient dernies symptoms of uncontrolled depression or anxiety. Neuro: Patient denies headache, paresthesias or focal neurologic deficits. Hematology: Patient admits to hematochezia as per HPI. Endocrinology: Patient denies polyuria, polydipsia, polyphagia or heat/cold intolerance. 14 point ROS otherwise negative except for positives noted above in HPI. Vital Signs Vital Signs Vital Signs: 01/23/25 19:30 01/23/25 21:26 01/23/25 21:38 Temperature 97.3 F L 98.1 F Temperature Source Temporal Pulse Rate 88 83 70 Respiratory Rate 20 H 18 16 Blood Pressure 147/90 H 155/87 H 155/87 H Blood Pressure Mean 109 109 109 Pulse Ox 96 96 97 Oxygen Delivery Method Room Air Room Air Weight Weight: 208 lb 8.917 oz Body Mass Index (BMI) 29.9 Physical Exam Const alert, oriented x3, no apparent distress, average body habitus and healthy appearing General Appearance: cooperative HEENT normocephalic, head/scalp atraumatic and hearing grossly normal bilaterally HEENT Narrative: Mucous membranes dry. Eyes PERRL, EOMs intact bilaterally and conjunctivae normal Neck no lymphadenopathy, supple and no JVD Resp normal respiratory effort, no retractions, no use of accessory muscles and clearto auscultation bilaterally Cardio regular rate and regular rhythm Cardio Narrative: 4/6 systolic ejection murmur at LSB. GI normal to inspection, nondistended, normoactive bowel sounds, soft to palpation,non-tender and non-distended Extremity normal to inspection, full ROM and no clubbing, cyanosis or edema Skin Skin Narrative: Patient has no evidence of rash, abscess, wounds or jaundice. Neuro oriented x3, CN's II-XII intact bilaterally, moves all extremities and no focal motor deficits Sensorium / Orientation: awake, alert, oriented to person, oriented to place andoriented to time Speech: speech normal Psych affect normal Results Lab / Micro Data 01/24/25 04:04 01/24/25 04:04 Labs: Laboratory Results - last 24 hr 01/23/25 20:21: WBC 5.4, RBC 2.92 L, Hgb 10.5 L, Hct 31.0 L, MCV 106.2 H, MCH 36.0 H, MCHC 33.9, RDW Std Deviation 53.4 H, RDW Coeff of Dorie 13.8, Plt Count 167, MPV 9.5, Immature Gran % (Auto) 0.700,Neut % (Auto) 58.3, Lymph % (Auto) 16.0 L, Stone % (Auto) 13.7 H, Eos % (Auto) 10.6 H, Baso % (Auto)0.7, Absolute Neuts (auto) 3.1, Absolute Lymphs (auto) 0.86, Nucleated RBC % 0, Sodium 140, Potassium 3.8, Chloride 107, Carbon Dioxide 19.9 L, Anion Gap 13, BUN 12, Creatinine 0.82, Estim Creat Clear Calc 91.26, Est GFR (MDRD) Non-Af 92, BUN/Creatinine Ratio 15.1, Glucose 100 H, Calcium 9.0, TotalBilirubin 0.74, AST35, ALT 30, Alkaline Phosphatase 103, Total Protein 6.6, Albumin 3.8, Globulin 2.9, Albumin/Globulin Ratio 1.3, Lipase 39 Assessment & Plan Assessment/Plan (1) Acute lower gastrointestinal bleeding: (2) ABLA (acute blood loss anemia): (3) Adverse drug reaction: QUALIFIERS: Encounter type: initial encounter Qualified Code(s): T50.905A - Adverse effect of unspecified drugs, medicaments and biological substances, initial encounter (4) History of GI diverticular bleed: (5) Acute cystitis without hematuria: (6) Overweight (BMI 25.0-29.9): PLAN: Plan 1. LGIB suspected to be from a recurrent diverticular source with ABLA evidenced by hemoglobin of 10.5 g/dL present on admission (down from 13.5 g/dL on December 30, 2024) with Macrocytosis of 106.2 fL present on admission - Admit to PCU. Keep n.p.o. except for ice chips, sips and medications. Start pantoprazole 40 mg IV twice daily. Finally, we will consult gastroenterology disease patient on rounds in the a.m. further recommendations regarding colonoscopy this admission with help appreciated advance. 2. Adverse Drug Reaction to BASA likely triggering #1 - Hold aspirin until further notice with likely need for cessation with recurrent LGIB. 3. History of LGIB with AVM of colon in addition to previous diverticular bleedcomplicating #1 & #2 - Noted. 4. UA positive for Acute Cystitis; without hematuria exacerbating #1 & #2 - Start IV ceftriaxone and await culture and sensitivity data. 5. Recent admission here from December 27, 2024 to December 30, 2024 for treatment of acute respiratory failure due to recurrent angioedema (attributed to losartan) with patient requiring intubation adding to the medical complexity of #1 - #3 - Noted. 6. CAD; s/p STEMI (2021) s/p stents x 4 (RCA+LAD) on BASA daily plus prn SL NTG- Stable. Hold baby aspirin but give sublingual nitroglycerin as needed if chest pain develops. 7. Overweight; with BMI of 29.9 this admission plus fatty liver disease adding to the burden of disease outlined from #1 - #6 - Weight loss will be recommended. Check TSH. 8. History of EtOH cirrhosis - Stable. 9. Essential hypertension; carvedilol and amlodipine - Hold scheduled antihypertensives in light of#1. 10. Hyperlipidemia; on atorvastatin plus ezetimibe - Hold oral medications until patient cleared for oral intake by GI. 11. Former tobacco abuse - Noted. 12. Neuropathy; on gabapentin BID - Restart this agent after colonoscopy. 13. History of Left renal calculi - Noted. 14. Depression with anxiety; on doxepin - Stable. 15. Seasonal allergies; on fexofenadine - Give diphenhydramine IV prn for breakthrough symptoms. 16. Gout; on allopurinol - Stable with no evidence of acute flare at this time. 17. OA - Stable. 18. DVT/GI prophylaxis - SCD's only in light of #1 contraindicating chemoprophylaxis. Pantoprazole 40 mg IV BID. Total time: Approximately (but not less than) 75 minutes. Charges/Coding Visit Charges Inpatient E&M: 85787 Init Hosp L3 01/24/25 2500 Cosigner Signature (if applicable): CC: Dr. Tessa Hampton DO; Dr. Valeriano Beasley MD~ Signed [facility]07-04-2025 Discharge summary Author Jae Mcclure [facility] Note Date/Time January 24, 2025 12:[address] [facility] Medical Records Department [address] [place] [address] Emergency Department Summary 01/23/25 MR#: [id number] Acct: [id number] Name: NAZARIO HUTTON Rep #:[id number] : 1950 74 From: Jae Mcclure MD PCP: Dr. Valeriano Beasley MD Status:ADM IN Location: [place] [address] HPI HPI - GI History of Present Illness Chief Complaint: GI Bleed Informant: patient Nausea/Vomiting/Emesis GI Symptom: Negative for Nausea Diarrhea/Melena/Hematochezia GI Symptom: Positive for Hematochezia Onset: Today and Yesterday Associated Symptoms Associated Symptoms: Negative for Dysuria, Frequency, Hematuria or Urgency Narrative Narrative: 74-year-old male, on baby aspirin prior [place] hypertension prior GI bleed sounds like a diverticular bleed that he was transfused 3 units of blood in the hospital for 12 days earlier this year. States that he believes another lower GI bleed started yesterday intermittent. Dark red to maroon-colored blood. No hematemesis. No nausea. No coffee-ground emesis. He is on aspirin but no other blood thinners. He denies any abdominal pain. Prior similar symptoms: Yes Recent Illness/Hospitalization: Yes [facility] Medical History High serum parathyroid hormone (PTH) Heart murmur Elevated alkaline phosphatase level Elevated PSA Diverticulosis AVM (arteriovenous malformation) of colon Vitamin D deficiency Gout Alcohol abuse Essential hypertension Chest pain Anxiety Depression Myocardial infarct Chest pain Acute blood loss anemia Bloody diarrhea Coronary artery disease Atherosclerotic heart disease of grayling coronary artery without angina pectoris ST elevation [place] (STEMI) (~11/29/21) Hyperlipidemia Hypertension Home Medications ?Medication ?Instructions ?Recorded ?Last Taken ?Type allopurinol 100 mg tablet 100 mg PO DAILY GOUT 2 09/02/22 History atorvastatin 80 mg tablet 80 mg PO QHS CHOLESTEOL /09/1409/01/22 History ezetimibe 10 mg tablet 10 mg PO QHS CHOLESTEROL 05/1509/01/22 History nitroglycerin 0.4 mg sublingual 0.4 mg sublingual UD P RN Chest Pain 09/02/22 Unknown History tablet ascorbic acid (vitamin C) 500 mg 1,000 mg (2 x 500 mg) PO BIDCM 30 09/09/22 Unknown Rx tablet days #120 tabs cholecalciferol (vitamin D3) 125 125 mcg PO DAILY supp lement 09/01/23 Unknown History mcg (5,000 unit) capsule omega 3-dha 100 mg-epa 400 mg-fish 1 cap PO DAILY PRN supplement 09/01/23 Unknown History oil 1,000 mg capsule vitamin B complex (B 1 tab PO DAILY feet 09/01/23 Unknown History Complex-Vitamin B12 tablet) isosorbide mononitrate 30 mg 30 mg PO QAM bp 04/15/24 Unknown History tablet,extended release 24 hr amlodipine 5 mg tablet 5 mg PO QDAY bp 09/19/24 Unk nown History carvedilol 12.5 mg tablet 12.5 mg PO BID bp 09/19/24 U nknown History fexofenadine 180 mg tablet 180 mg PO QODAY allergies 0 09/19/24 Unknown History gabapentin 300 mg capsule 600 mg PO BID neuropathy Unknown History doxepin 25 mg capsule 25 mg PO QHS mood 11/05/24 U nknown History aspirin 81 mg capsule 81 mg PO DAILY heart 5 Unknown History epinephrine 0.3 mg/0.3 mL 0.3 mg (0.3 mL) IM X1 PRN Unknown Rx injection, auto-injector (EpiPen) anaphylaxis/angioede ma #1 ea prednisone 20 mg tablet 40 mg (2 x 20 mg) PO DAILY # 10 tabs 12/30/24 Unknown Rx Allergy/AdvReac Type Severity Reaction Status Date / Time losartan Allergy Severe Angioedema Verified 01/23/25 19:30 hydrochlorothiazide Allergy Hives Verified 01/23/25 19:30 Family History Mother COPD (chronic obstructive pulmonary [...] not use ROS ROS ED ROS Narrative Blood per rectum. Constitutional Constitutional ED: Denies chills or fever(s) ENT ENT ED: Denies ear pain Cardiovascular Cardiovascular: Denies chest pain Respiratory/Chest Respiratory/Chest: Denies cough Gastrointestinal Gastrointestinal: Reports other; Denies abdominal pain, constipation, diarrhea, melena, nausea or vomiting Genitourinary Genitourinary ED: Denies hematuria Musculoskeletal Musculoskeletal: Denies arthralgias Integumentary Denies abscess Neurologic Neurologic: Denies headache(s) Psychiatric Psychiatric: Denies anxiety Endocrine Endocrinology: Denies polydipsia Hematologic/Lymphatic Hematologic/Lymphatic: Denies easy bleeding, easy bruising or lymphadenopathy Allergic/Immunologic Allergic/Immunologic ED: Denies mouth swelling, tongue swelling or urticaria EXAM Physical Exam Narrative Exam Narrative: Well-appearing 74-year-old male. Vital signs stable afebrile. H EENT exam pupils round react to light. Active motions are intact. Neck nontender. No JVD. No lymphadenopathy. Lungs clear to auscultation bilaterally. Heart regular rhythm 4/6 systolic ejection murmur. Chest wall nontender. Abdomen soft nontender. No peritoneal signs. Moving all 4 extremities. Nontender no edema no cords. Patient is awake and alert. No focal motor deficits. Answer questions following commands. Const Vital Signs: 01/23/25 19:30 01/23/25 21:26 Temperature 97.3 F L Temperature Source Temporal Pulse Rate 88 83 Respiratory Rate 20 H 18 Blood Pressure 147/90 H 155/87 H Blood Pressure Mean 109 109 Pulse Ox 96 96 Oxygen Delivery Method Room Air Room Air Positive well nourished and well developed; Negative for obese, cachectic, contractures or unkempt General Appearance ED: well developed and NAD; Negative for unkempt, cachectic, contractures or pallor Nutritional Appearance: Negative for cachectic or obese HEENT Reports moist mucous membranes normocephalic and atraumatic Eyes PERRL and EOMs intact bilaterally Neck no lymphadenopathy, supple and no JVD Resp normal respiratory effort and clear to auscultation bilaterally Cardio regular rate, regular rhythm, S1 normal heart sound and S2 normal heart sound; Negative for no murmurs Cardio Narrative: 4 over 6 systolic ejection murmur. GI non-tender, non-distended and no masses Palpation: soft; Negative for tender or guarding Back/Spine no CVA tenderness Extremity full ROM General Extremety ED: Negative for edema or tenderness General Extremity: Negative for edema Neuro CN's II-XII intact bilaterally and moves all extremities Sensorium / Orientation: alert, oriented to person, oriented to place and oriented to time; Negative for orientation impaired, confused or lethargic Motor Exam: strength 5/5 throughout Psych mental status grossly normal and thought process normal Appearance: Negative for unkempt Attitude: No agitated Mood & Affect: Negative for depressed, anxious or tearful Skin no wounds General Skin Exam: Negative for jaundice or pallor Lesions: no lesions Rashes: no rashes MDM MDM MDM Narrative Medical decision making narrative: 73-year-old male suspect lower GI bleed. He showed me pictures on his cell phone that looks like dark red blood per rectum. Consistent with lower GI bleed. History of prior diverticular bleed on aspirin. Screening labs obtainedhis hemoglobin went from 13.5-10.5 in a month. I have the hospitalist on page for admission. History & Record Review Discussion w/independent historian: Patient Additional record(s) reviewed:: Prior inpatient record, Prior outpatient record,Prior ED visit and Prior labs Lab Data Attestation: I reviewed the patient's lab results. Lab results narrative: CBC shows a white count of 5 H&H 10.5 and 31. Platelets 167. Electrolytes sodium 140 gap 13. Normal BUN of 12 creatinine 0.8. Glucose 100. Liver enzymes normal. Lipase normal at 39. Triage labs by nursing. Labs: Laboratory Results - last 24 hr 01/23/25 20:21 WBC 5.4 RBC 2.92 L Hgb 10.5 L Hct 31.0 L MCV 106.2 H MCH 36.0 H MCHC 33.9 RDW Std Deviation 53.4 H RDW Coeff of Dorie 13.8 Plt Count 167 MPV 9.5 Immature Gran % (Auto) 0.700 Neut % (Auto) 58.3 Lymph % (Auto) 16.0 L Stone % (Auto) 13.7 H Eos % (Auto) 10.6 H Baso % (Auto) 0.7 Absolute Neuts (auto) 3.1 Absolute Lymphs (auto) 0.86 Nucleated RBC % 0 Sodium 140 Potassium 3.8 Chloride 107 Carbon Dioxide 19.9 L Anion Gap 13 BUN 12 Creatinine 0.82 Estim Creat Clear Calc 91.26 Est GFR (MDRD) Non-Af 92 BUN/Creatinine Ratio 15.1 Glucose 100 H Calcium 9.0 Total Bilirubin 0.74 AST 35 ALT 30 Alkaline Phosphatase 103 Total Protein 6.6 Albumin 3.8 Globulin 2.9 Albumin/Globulin Ratio 1.3 Lipase 39 Discharge Plan Triage Chief Complaint: GI Bleed ED Provider: Jae Mccluer Dx/Rx/DC Orders Clinical Impression: Acute lower gastrointestinal bleeding, Anemia, History of OK (myocardial infarction), History of GI diverticular bleed Prescriptions: No Action cholecalciferol (vitamin D3) 125 mcg (5,000 unit) capsule 125 mcg PO DAILY vitamin B complex [B Complex-Vitamin B12] Tablet 1 tab PO DAILY omega 9-lzx-dsz-fish oil 100-400-1,000 mg capsule 1 cap PO [...] 81 mg capsule 81 mg PO DAILY prednisone 20 mg tablet 40 mg PO DAILY Qty: 10 0RF epinephrine [EpiPen] 0.3 mg/0.3 mL auto-injector 0.3 mg IM X1 PRN (Reason: anaphylaxis/angioedema) Qty: 1 0RF Rx Instructions: for 2 doses Primary Care Provider: Valeriano Beasley Referrals: Valeriano Beasley MD [Primary Care Provider] - Print Language: Monegasque Disposition Disposition: Acute Care Hospital [facility] What to do if you have Problems For any increased pain, shortness of breath, bleeding, nausea or vomiting, chestpain, or any unexpected problems, contact your Primary Care Provider. Call [facility] ([phone]) or report to the closest Emergency Room. Call 911 if necessary. 01/24/25 0039 <Electronically signed by Jae Mcclure MD> Cosigner Signature (if applicable): CC: Dr. Valeriano Beasley MD ~ Signed [facility] Work Phone: [phone] 166-717607-04-[address] [facility] Medical Records Department [address] [place] [address] Emergency Department Summary 01/23/25 MR#: [id number] Acct: [id number] Name: NAZARIO HUTTON Rep #:[id number] : 1950 74 From: Jae Mcclure MD PCP: Dr. Valeriano Beasley MD Status:ADM IN Location: [place] [address] HPI HPI - GI History of Present Illness Chief Complaint: GI Bleed Informant: patient Nausea/Vomiting/Emesis GI Symptom: Negative for Nausea Diarrhea/Melena/Hematochezia GI Symptom: Positive for Hematochezia Onset: Today and Yesterday Associated Symptoms Associated Symptoms: Negative for Dysuria, Frequency, Hematuria or Urgency Narrative Narrative: 74-year-old male, on baby aspirin prior OK hypertension prior GI bleed sounds like a diverticular bleed that he was transfused 3 units of blood in the hospital for 12 days earlier this year. States that he believes another lower GI bleed started yesterday intermittent. Dark red to maroon-colored blood. No hematemesis. No nausea. No coffee-ground emesis. He is on aspirin but no other blood thinners. He denies any abdominal pain. 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 ST elevation OK (STEMI) (~11/29/21) Hyperlipidemia Hypertension Home Medications ?Medication ?Instructions ?Recorded ?Last Taken ?Type allopurinol 100 mg tablet 100 mg PO DAILY GOUT 2 09/02/22 History atorvastatin 80 mg tablet 80 mg PO QHS CHOLESTEOL 09/1409/01/22 History ezetimibe 10 mg tablet 10 mg PO QHS CHOLESTEROL 05/1509/01/22 History nitroglycerin 0.4 mg sublingual 0.4 mg sublingual UD P RN Chest Pain 09/02/22 Unknown History tablet ascorbic acid (vitamin C) 500 mg 1,000 mg (2 x 500 mg) PO BIDCM 30 09/09/22 Unknown Rx tablet days #120 tabs cholecalciferol (vitamin D3) 125 125 mcg PO DAILY supp lement 09/01/23 Unknown History mcg (5,000 unit) capsule omega 3-dha 100 mg-epa 400 mg-fish 1 cap PO DAILY PRN supplement 09/01/23 Unknown History oil 1,000 mg capsule vitamin B complex (B 1 tab PO DAILY feet 09/01/23 Unknown History Complex-Vitamin B12 tablet) isosorbide mononitrate 30 mg 30 mg PO QAM bp 04/15/24 Unknown History tablet,extended release 24 hr amlodipine 5 mg tablet 5 mg PO QDAY bp 09/19/24 Unk nown History carvedilol 12.5 mg tablet 12.5 mg PO BID bp 09/19/24 U nknown History fexofenadine 180 mg tablet 180 mg PO QODAY allergies 0 09/19/24 Unknown History gabapentin 300 mg capsule 600 mg PO BID neuropathy Unknown History doxepin 25 mg capsule 25 mg PO QHS mood 11/05/24 U nknown History aspirin 81 mg capsule 81 mg PO DAILY heart 5 Unknown History epinephrine 0.3 mg/0.3 mL 0.3 mg (0.3 mL) IM X1 PRN Unknown Rx injection, auto-injector (EpiPen) anaphylaxis/angioede ma #1 ea prednisone 20 mg tablet 40 mg (2 x 20 mg) PO DAILY # 10 tabs 12/30/24 Unknown Rx Allergy/AdvReac Type Severity Reaction Status Date / Time losartan Allergy Severe Angioedema Verified 01/23/25 19:30 hydrochlorothiazide Allergy Hives Verified 01/23/25 19:30 Family History Mother COPD (chronic obstructive pulmonary [...] not use ROS ROS ED ROS Narrative Blood per rectum. Constitutional Constitutional ED: Denies chills or fever(s) ENT ENT ED: Denies ear pain Cardiovascular Cardiovascular: Denies chest pain Respiratory/Chest Respiratory/Chest: Denies cough Gastrointestinal Gastrointestinal: Reports other; Denies abdominal pain, constipation, diarrhea, melena, nausea or vomiting Genitourinary Genitourinary ED: Denies hematuria Musculoskeletal Musculoskeletal: Denies arthralgias Integumentary Denies abscess Neurologic Neurologic: Denies headache(s) Psychiatric Psychiatric: Denies anxiety Endocrine Endocrinology: Denies polydipsia Hematologic/Lymphatic Hematologic/Lymphatic: Denies easy bleeding, easy bruising or lymphadenopathy Allergic/Immunologic Allergic/Immunologic ED: Denies mouth swelling, tongue swelling or urticaria EXAM Physical Exam Narrative Exam Narrative: Well-appearing 74-year-old male. Vital signs stable afebrile. H EENT exam pupils round react to light. Active motions are intact. Neck nontender. No JVD. No lymphadenopathy. Lungs clear to auscultation bilaterally. Heart regular rhythm 4/6 systolic ejection murmur. Chest wall nontender. Abdomen soft nontender. No peritoneal signs. Moving all 4 extremities. Nontender no edema no cords. Patient is awake and alert. No focal motor deficits. Answer questions following commands. Const Vital Signs: 01/23/25 19:30 01/23/25 21:26 Temperature 97.3 F L Temperature Source Temporal Pulse Rate 88 83 Respiratory Rate 20 H 18 Blood Pressure 147/90 H 155/87 H Blood Pressure Mean 109 109 Pulse Ox 96 96 Oxygen Delivery Method Room Air Room Air Positive well nourished and well developed; Negative for obese, cachectic, contractures or unkempt General Appearance ED: well developed and NAD; Negative for unkempt, cachectic, contractures or pallor Nutritional Appearance: Negative for cachectic or obese HEENT Reports moist mucous membranes normocephalic and atraumatic Eyes PERRL and EOMs intact bilaterally Neck no lymphadenopathy, supple and no JVD Resp normal respiratory effort and clear to auscultation bilaterally Cardio regular rate, regular rhythm, S1 normal heart sound and S2 normal heart sound; Negative for no murmurs Cardio Narrative: 4 over 6 systolic ejection murmur. GI non-tender, non-distended and no masses Palpation: soft; Negative for tender or guarding Back/Spine no CVA tenderness Extremity full ROM General Extremety ED: Negative for edema or tenderness General Extremity: Negative for edema Neuro CN's II-XII intact bilaterally and moves all extremities Sensorium / Orientation: alert, oriented to person, oriented to place and oriented to time; Negative for orientation impaired, confused or lethargic Motor Exam: strength 5/5 throughout Psych mental status grossly normal and thought process normal Appearance: Negative for unkempt Attitude: No agitated Mood & Affect: Negative for depressed, anxious or tearful Skin no wounds General Skin Exam: Negative for jaundice or pallor Lesions: no lesions Rashes: no rashes MDM MDM MDM Narrative Medical decision making narrative: 73-year-old male suspect lower GI bleed. He showed me pictures on his cell phone that looks like dark red blood per rectum. Consistent with lower GI bleed. History of prior diverticular bleed on aspirin. Screening labs obtainedhis hemoglobin went from 13.5-10.5 in a month. I have the hospitalist onpage for admission. History & Record Review Discussion w/independent historian: Patient Additional record(s) reviewed:: Prior inpatient record, Prior outpatient record,Prior ED visit and Prior labs Lab Data Attestation: I reviewed the patient's lab results. Lab results narrative: CBC shows a white count of 5 H&H 10.5 and 31. Platelets 167. Electrolytes sodium 140 gap 13. Normal BUN of 12 creatinine 0.8. Glucose 100. Liver enzymes normal. Lipase normal at 39. Triage labs by nursing. Labs: Laboratory Results - last 24 hr 01/23/25 20:21 WBC 5.4 RBC 2.92 L Hgb 10.5 L Hct 31.0 L MCV 106.2 H MCH 36.0 H MCHC 33.9 RDW Std Deviation 53.4 H RDW Coeff of Dorie 13.8 Plt Count 167 MPV 9.5 Immature Gran % (Auto) 0.700 Neut % (Auto) 58.3 Lymph % (Auto) 16.0 L Stone % (Auto) 13.7 H Eos % (Auto) 10.6 H Baso % (Auto) 0.7 Absolute Neuts (auto) 3.1 Absolute Lymphs (auto) 0.86 Nucleated RBC % 0 Sodium 140 Potassium 3.8 Chloride 107 Carbon Dioxide 19.9 L Anion Gap 13 BUN 12 Creatinine 0.82 Estim Creat Clear Calc 91.26 Est GFR (MDRD) Non-Af 92 BUN/Creatinine Ratio 15.1 Glucose 100 H Calcium 9.0 Total Bilirubin 0.74 AST 35 ALT 30 Alkaline Phosphatase 103 Total Protein 6.6 Albumin 3.8 Globulin 2.9 Albumin/Globulin Ratio 1.3 Lipase 39 Discharge Plan Triage Chief Complaint: GI Bleed ED Provider: Jae Mcclure Dx/Rx/DC Orders Clinical Impression: Acute lower gastrointestinal bleeding, Anemia, History of OK (myocardial infarction), History of GIdiverticular bleed Prescriptions: No Action cholecalciferol (vitamin D3) 125 mcg (5,000 unit) capsule 125 mcg PO DAILY vitamin B complex [B Complex-Vitamin B12] Tablet 1 tab PO DAILY omega 3-dad-cqi-fish oil 100-400-1,000 mg capsule 1 cap PO [...] 81 mg capsule 81 mg PO DAILY prednisone 20 mg tablet 40 mg PO DAILY Qty: 10 0RF epinephrine [EpiPen] 0.3 mg/0.3 mL auto-injector 0.3 mg IM X1 PRN (Reason: anaphylaxis/angioedema) Qty: 1 0RF Rx Instructions: for 2 doses Primary Care Provider: Valeriano Beasley Referrals: Valeriano Beasley MD [Primary Care Provider] - Print Language: Monegasque Disposition Disposition: Acute Care Hospital [facility] What to do if you have Problems For any increased pain, shortness of breath, bleeding, nausea or vomiting, chestpain, or any unexpected problems, contact your Primary Care Provider. Call [facility] ([phone]) or report tothe closest Emergency Room. Call 911 if necessary. 01/24/2538 Cosigner Signature (if applicable): CC: Dr. Valeriano Beasley MD ~ Signed [facility]07-03-2025 Telephone encounter Note* Telephone Encounter - Sean Abbasi RN - 01/23/2025 12:59 PM EDT See triage note. Pt agreeable to ER. [facility]07-03-2025 Miscellaneous Notes* Telephone Encounter - Sean Abbasi RN - 01/23/2025 12:59 PM EDT See triage note. Pt agreeable to ER. * Telephone Encounter - Nahid Turner MA - 01/23/2025 11:57 AM EDT Appt placed on Nurse Triage do due to no response from pt and message not being read. Want to get an update. Pt did not feel he needed an appt. Nahid Turner MA * Telephone Encounter - Nahid Turner MA - 01/23/2025 9:36 AM EDT Asked pt additional questions prior to sending to PCP. Nahid Turner MA [facility] Telephone encounter Note * Telephone Encounter - Sean Abbasi RN - 01/23/2025 12:21 PM EDT Pt reports he's had several episodes of [...] states he is going to appt with mid wife first. Reports he has had 5 episodes of tongue swelling since Jun and mid wife is going to help him with this. Pt states if rectal bleed starts again he will go straight to ER instead of allergy appt, otherwise he will go to allergy appt at 2 pm first. Phoned and spoke with nurse Mila at [facility] ER and given report. Advised pt said he would go to allergy appt first unless rectal bleed starts again. Reason for Disposition [1] MODERATE rectal bleeding (e.g., small blood clots, passing blood without stool, or toilet waterturns red) AND [2] more than once a [...] water- was dark red blood- early in themorning 1 or 2 am. Today at 10 [...] dizziness. Reports he feels pretty good. Hx [id number]- sometimes get short of breath on exertion. 10. : N/A Protocols used: Rectal [id number] [facility]07-03-2025 Miscellaneous Notes* Telephone Encounter - Sean Abbasi RN - 01/23/2025 12:21 PM EDT Pt reports he's had several episodes of [...] states he is going to appt with mid wife first. Reports he has had 5 episodes of tongue swelling since Jun and mid wife is going to help him with this. Pt states if rectal bleed starts again he will go straight to ER instead of allergy appt, otherwise he will go to allergy appt at 2 pm first. Phoned and spoke with nurse Mila at [facility] ER and given report. Advised pt said he would go to allergy appt first unless rectal bleed starts again. Reason for Disposition [1] MODERATE rectal bleeding (e.g., small blood clots, passing blood without stool, or toilet waterturns red) AND [2] more than once a [...] water- was dark red blood- early in themorning 1 or 2 am. Today at 10 [...] dizziness. Reports he feels pretty good. Hx [id number]- sometimes get short of breath on exertion. 10. : N/A Protocols used: Rectal [id number] documented [facility] Telephone encounter Note * Telephone Encounter - Nahid Turner MA - 01/23/2025 11:57 AM EDT Appt placed on Nurse Triage do due to no response from pt and message not being read. Want to get an update. Pt did not feel he needed an appt. Nahid Turner MA [facility]07-03-2025 Telephone encounter Note* Telephone Encounter - Nahid Turner MA - 01/23/2025 9:36 AM EDT Asked pt additional questions prior to sending to PCP. Nahid Turner MA [facility]06-11-2025 NoteHNO ID: [id number] Author: SUZANNA DAWSON PA-C Service: ? Author Type: Physician Destination Sign Repairer Type: Progress Notes Filed: 01/01/2025 12:06 Note [...] pharmacy and is scheduled to see an Scrap Preparer on January 23. Prozac was discontinued by the hospitalist due to possible correlation with angioedema. Patient states he feels ok and is agreeable to waiting to get the mid wife's recommendations before attempting to initiate a new [...] lipid rich plaque 12/06/[address] 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 diphenhydrAMINE ( (more content not included)...[facility] 01-01-2025 History of Present illness Narrative* Suzanna Dawson PA-C - 01/01/2025 10:01 AM EDT Chief Complaint Patient presents with: Hospital F/U TCM Note: Patient discharged on 12/30/2024 Patients appointment is within 48 hours. EDMUND Hutton is a 74 year old male who presents here today for Hospital Discharge Follow up. He was admitted Monday and discharged Monday morning 12/30/24. He has picked up his epi pen from the pharmacy and is scheduled to see an Scrap Preparer on January 23. Prozac was discontinued by the hospitalist due to possible correlation with angioedema. 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 Will follow with them for further evaluation of angioedema episodes. Agrees to hold off on starting new medication for anxiety/depression until seeing the mid wife based off their recommendations. 2. Essential hypertension, benign - ICD9: 401.1, ICD10: I10 Well controlled, no new concerns. - AMLODIPINE 5 MG TABLET Patient to follow up as needed and as scheduled for routine. Milena REDDING I have personally seen and examined the patient and performed the medical- decision making components. I have reviewed the Physician Destination Sign Repairer (DAVID) student's documentation and verified the findings inthe note as written. Any additions or changes are noted in bold/italics. Suzanna Dawson PA-C documented in this encounterK[facility]06-[facility]25 Discharge summary Author Alexi Olivas [facility] Note Date/Time December 30, 2024 9:04a [facility] Medical Records Department [address] [place] [address] Discharge Summary 12/30/24 0854 MR#: [id number] Acct: [id number] Name: NAZARIO HUTTON Rep #:[id number] : 1950 74 From: Alexi Olivas DO PCP: Dr. Valeriano Beasley MD Status:ADM IN Location: ICU ICU-1 Providers Date of Admission: 12/27/24 Primary Care Physician: Dr. Valeriano Beasley MD Consultations 12/27/24 16:14 Consult: Cabin Cleaner / Pulmonary Medicine Routine Consulting Provider: Intensivists/Pulmonary [...] angioedema. Sedation w fentanyl and dexmedetomidine gtt. [facility] consult Extubated 12/29 (2) Angioedema: Status: [...] Patient is recommend to follow-up with an mid wife as outpatient. Patient also have prescription for [...] Clarity Cancelled, Urine pH Cancelled, Ur Specific [place] Cancelled, U Specif Grav (Refrac) Cancelled, Urine [...] 88.6 H, Lymph % (Auto) 3.8 L, Stone % (Auto) 6.4, Eos % (Auto) 0.0, [...] Marin; Isabel Hagen; Jaquelin Singh; Nelda Conde; Yovani,Kasi; Juancarlos Rebollar; Drew Gibbons; Kenan Crawley; Carl [...] potentially still get worse. Allergy and Immunology: [facility] [phone]. Dr. Ortiz [phone]. Discharge Orders/Prescriptions Prescriptions: New prednisone 20 mg tablet 40 mg PO DAILY Qty: 10 0RF epinephrine [EpiPen] 0.3 mg/0.3 mL auto-injector 0.3 mg IM X1 PRN (Reason: anaphylaxis/angioedema) Qty: 1 0RF Rx Instructions: for 2 doses Continued cholecalciferol (vitamin D3) 125 mcg (5,000 unit) capsule 125 mcg PO DAILY vitamin B complex [B Complex-Vitamin B12] Tablet 1 tab PO DAILY omega 5-oys-ocj-fish oil 100-400-1,000 mg capsule 1 cap PO [...] Self Care Charges/Coding Visit Charges Inpatient E&M: 13792 Disch Hosp >30min 12/30/24 09 <Electronically signed by Alexi Olivas DO> Cosigner Signature (if applicable): CC: Dr. Alexi Olivas DO; Dr. Valeriano Beasley MD~ Signed [facility] Work Phone: 1(826) 564-829606-09-2025 Progress note [facility] Medical Records Department [address] [place] [address] Progress Note - Cabin Cleaner 12/30/24 07 MR#: [id number] Acct: [id number] Name: NAZARIO HUTTON Rep #:[id number] : 1950 74 From: Homer Guzman DO [...] that the patient follow-up with a local allergy/obgyn specialist for further workup of his recurrent angioedema. This note was generated with Bringmeation software. It may contain incorrectwords, spelling, and [...] Clarity Cancelled, Urine pH Cancelled, Ur Specific [place] Cancelled, U Specif Grav (Refrac) Cancelled, Urine [...] 88.6 H, Lymph % (Auto) 3.8 L, Stone % (Auto) 6.4, Eos % (Auto) 0.0, [...] Respiratory Culture - Final Mixed normal respiratory adrain. No Streptococcus pneumoniae, beta-hemolytic Streptococcus or Staphylococcus [...] affect normal Charges/Coding Visit Charges Inpatient E&M: 75935 Subs Hosp L2 12/30/24 1045 Cosigner Signature (if applicable): CC: ~ Signed [facility]06-09-2025 Discharge summary [facility] Medical Records Department [address] [place] [address] Discharge Summary 12/30/24 0854 MR#: [id number] Acct: [id number] Name: NAZARIO HUTTON Rep #:[id number] : 1950 74 From: Alexi Olivas DO PCP: Dr. Valeriano Beasley MD Status:ADM IN Location: ICU [place] [address] Providers Date of Admission: 12/27/24 Primary Care Physician: Dr. Valeriano Beasley MD Consultations 12/27/24 16:14 Consult: Cabin Cleaner / Pulmonary Medicine Routine Consulting Provider: Intensivists/Pulmonary [...] angioedema. Sedation w fentanyl and dexmedetomidine gtt. [facility] consult Extubated 12/29 (2) Angioedema: Status: [...] Patient is recommend to follow-up with an mid wife as outpatient. Patient also have prescription for [...] Clarity Cancelled, Urine pH Cancelled, Ur Specific [place] Cancelled, U Specif Grav (Refrac) Cancelled, Urine [...] 88.6 H, Lymph % (Auto) 3.8 L, Stone % (Auto) 6.4, Eos % (Auto) 0.0, [...] Guzman; Tessa Ty; Joni Garsia; Viktor Francis; Belai Villanueva; Spike Floyd; Eric Dockery; Jim Marin; Isabel Hagen; Jaquelin Singh; Nelda Conde; Kais Pina; Juancarlos Rebollar; Drew Gibbons; Kenan Crawley; [...] potentially still get worse. Allergy and Immunology: [facility] [phone]. Dr. Ortiz [phone]. Discharge Orders/Prescriptions Prescriptions: New prednisone 20 mg tablet 40 mg PO DAILY Qty: 10 0RF epinephrine [EpiPen] 0.3 mg/0.3 mL auto-injector 0.3 mg IM X1 PRN (Reason: anaphylaxis/angioedema) Qty: 1 0RF Rx Instructions: for 2 doses Continued cholecalciferol (vitamin D3) 125 mcg (5,000 unit) capsule 125 mcg PO DAILY vitamin B complex [B Complex-Vitamin B12] Tablet 1 tab PO DAILY omega 6-vfj-omo-fish oil 100-400-1,000 mg capsule 1 cap PO [...] Self Care Charges/Coding Visit Charges Inpatient E&M: 49873 Disch Hosp >30min 12/30/24 0904 Cosigner Signature (if applicable): CC: Dr. Alexi Olivas DO; Dr. Valeriano Beasley MD~ Signed [facility]06-09-2025 Progress note Author Homer Guzman [facility] Note Date/Time December 30, 2024 10:45 am [facility] Medical Records Department [address] [place] [address] Progress Note - Cabin Cleaner 12/30/24702 MR#: [id number] Acct: [id number] Name: NAZARIO HUTTON Rep #:[id number] : 1950 74 From: Homer Guzman DO [...] that the patient follow-up with a local allergy/obgyn specialist for further workup of his recurrent angioedema. This note was generated with Bringmeation software. It may contain incorrectwords, spelling, and [...] Clarity Cancelled, Urine pH Cancelled, Ur Specific [place] Cancelled, U Specif Grav (Refrac) Cancelled, Urine [...] 88.6 H, Lymph % (Auto) 3.8 L, Stone % (Auto) 6.4, Eos % (Auto) 0.0, [...] affect normal Charges/Coding Visit Charges Inpatient E&M: 51900 Subs Hosp L2 12/30/24 1045 <Electronically signed by Homer Guzman DO> Cosigner Signature (if applicable): CC: ~ Signed [facility] Work Phone: 1(456) 217-786806-09-2025 [facility] Progress note Author Alexi Olivas [facility] Note Date/Time December 29, 2024 12:[address] [facility] Medical Records Department [address] [place] [address] Progress Note - Hospitalist 12/29/24717 MR#: [id number] Acct: [id number] Name: NAZARIO HUTTON Rep #:[id number] : 1950 74 From: Alexi Olivas DO PCP: Dr. Valeriano Beasley MD Status:ADM [facility] Reason for [...] 92.1 H, Lymph % (Auto) 2.9 L, Stone % (Auto) 4.4, Eos % (Auto) 0.0, [...] Plan Assessment/Plan (1) Acute respiratory failure: PLAN: 2/ angioedema. Required intubation to prevent respiratory collapse [...] discharge 12/30. Charges/Coding Visit Charges Inpatient E&M: 16041 Subs Hosp L2 12/29/24 1241 <Electronically signed by Alexi Olivas DO> Cosigner Signature (if applicable): CC: ~ Signed [facility] Work Phone: 1(343) 618-289506-08-[address] [facility] Medical Records Department [address] [place] [address] Progress Note - Hospitalist 12/29/24 0718 MR#: [id number] Acct: [id number] Name: NAZARIO HUTTON Rep #:[id number] : 1950 74 From: Alexi Olivas DO [...] 92.1 H, Lymph % (Auto) 2.9 L, Stone % (Auto) 4.4, Eos % (Auto) 0.0, [...] 12/29/24 05:35 IMPRESSION: See above [facility] Ex[facility] Const Constitutional Narrative: Saw [...] discharge 12/30. Charges/Coding Visit Charges Inpatient E&M: 98410 Subs Hosp L2 12/29/24 1241 Cosigner Signature (if applicable): CC: ~ Signed [facility]06-08-2025 Progress note Author Mohit Myers [facility] Note Date/Time December 29, 2024 9:55a [facility] Medical Records Department [address] [place] [address] Progress Note - Cabin Cleaner 12/29/24918 MR#: [id number] Acct: [id number] Name: NAZARIO HUTTON Rep #:[id number] : 1950 74 From: Mohit Myers MD [...] 92.1 H, Lymph % (Auto) 2.9 L, Stone % (Auto) 4.4, Eos % (Auto) 0.0, [...] 12/29/24 05:35 IMPRESSION: See above Reading Location: [facility] Assessment and Plan . Assessment and plan: [...] Cosigner Signature (if applicable): CC: ~ Signed [facility] Work Phone: 1(131) 442-782906-08-[address] [facility] Medical Records Department [address] [address] Progress Note - Cabin Cleaner 12/29/24918 MR#: [id number] Acct: [id number] Name: NAZARIO HUTTON Rep #:[id number] : 1950 74 From: Mohit Myers MD [...] 92.1 H, Lymph % (Auto) 2.9 L, Stone % (Auto) 4.4, Eos % (Auto) 0.0, [...] 12/29/24 05:35 IMPRESSION: See above Reading [facility] Assessment and Plan . Assessment and [...] Cosigner Signature (if applicable): CC: ~ Signed [facility]06-08-2025 Radiology Diagnostic study note [facility] Imaging Services [address] [place], [place] [address] Chest 1 View (Portable) MR#: [id number] Acct: [id number] Name: NAZARIO HUTTON Rep #: [id number] : 1950 M 74 From: Ebony Carr MD PCP: Dr. Valeriano Beasley MD Status: ADM IN Study:Chest 1 View (Portable) Date of Exam: 12/29/24 Exam# [id number] Ordering Dr: Zina Myers MD PROCEDURE: CHEST [...] View (Portable) IMPRESSION: See above Reading [facility] CC: Dr. Valeriano Beasley MD; Dr. Mohit Myers MD ~ Accessioner: Signed [facility]06-07-2025 Consult note Author Mohit Myers [facility] Note Date/Time December 28, 2024 9:29p m [facility] Medical Records Department [address] [place] [address] Consultation - Cabin Cleaner 12/28/24915 MR#: [id number] Acct: [id number] Name: NAZARIO HUTTON Rep #:[id number] : 1950 74 From: Mohit Myers MD [...] ROS: Unable to obtain as pt intubated [facility] Medical History High serum parathyroid hormone (PTH) Heart murmur Elevated alkaline phosphatase level Elevated PSA Diverticulosis AVM (arteriovenous malformation) of colon Vitamin D deficiency Gout Alcohol abuse Essential hypertension Chest pain Anxiety Depression Myocardial infarct Chest pain Acute blood loss anemia Bloody diarrhea Coronary artery disease Atherosclerotic heart disease of grayling coronary artery without angina pectoris ST elevation [...] 12/28/24 05:29 IV 12/28/24 18:53 75 mls/hr .[id number] YASMIN Administration Dexmedetomidine HCl 400 mcg/ 100 [...] (Auto) 67.1, Lymph % (Auto) 9.8 L, Stone % (Auto) 11.2 H, Eos % (Auto) [...] 92.9 H, Lymph % (Auto) 5.0 L, Stone % (Auto) 1.4, Eos % (Auto) 0.0, [...] Bilateral lower lung airspace disease is seen, uvsh-jtpittj-xkzw-right. Differential diagnosis includes atelectasis and pneumonitis. No evidence of pulmonary edema. The cardiomediastinal silhouette is within the normal range. No acute osseous change is evident. Reading Location: [address] Assessment and Plan . Assessment and [...] applicable): CC: Dr. Valeriano Beasley MD~ Signed [facility] Work Phone: 1(125) 111-492106-07-2025 Consult note [facility] Medical Records Department [address] [place] [address] Consultation - Cabin Cleaner 12/28/24 0916 MR#: [id number] Acct: [id number] Name: NAZARIO HUTTON Rep #:[id number] : 1950 74 From: Mohit Myers MD [...] ROS: Unable to obtain as pt intubated [facility] Medical History High serum parathyroid hormone (PTH) Heart murmur Elevated alkaline phosphatase level Elevated PSA Diverticulosis AVM (arteriovenous malformation) of colon Vitamin D deficiency Gout Alcohol abuse Essential hypertension Chest pain Anxiety Depression Myocardial infarct Chest pain Acute blood loss anemia Bloody diarrhea Coronary artery disease Atherosclerotic heart disease of grayling coronary artery without angina pectoris ST elevation [...] 12/28/24 05:29 IV 12/28/24 18:53 75 mls/hr .[id number] YASMIN Administration Dexmedetomidine HCl 400 mcg/ 100 [...] (Auto) 67.1, Lymph % (Auto) 9.8 L, Stone % (Auto) 11.2 H, Eos % (Auto) [...] 92.9 H, Lymph % (Auto) 5.0 L, Stone % (Auto) 1.4, Eos % (Auto) 0.0, [...] Bilateral lower lung airspace disease is seen, hnrb-nunmtbq-vicc-right. Differential diagnosis includes atelectasis and pneumonitis. No evidence of pulmonary edema. The cardiomediastinal silhouette is within the normal range. No acute osseous change is evident. Reading Location: [address] Assessment and Plan . Assessment and [...] applicable): CC: Dr. Valeriano Beasley MD~ Signed [facility]06-07-2025 Progress note Author Alexi Olivas [facility] Note Date/Time December 28, 2024 2:04p m [facility] Medical Records Department [address] [place] [address] Progress Note - Hospitalist 12/28/24 0751 MR#: [id number] Acct: [id number] Name: NAZARIO HUTTON Rep #:[id number] : 1950 74 From: Alexi Olivas DO [...] (Auto) 67.1, Lymph % (Auto) 9.8 L, Stone % (Auto) 11.2 H, Eos % (Auto) [...] 92.9 H, Lymph % (Auto) 5.0 L, Stone % (Auto) 1.4, Eos % (Auto) 0.0, [...] Bilateral lower lung airspace disease is seen, cqlr-nkjxzvu-trqj-right. Differential diagnosis includes atelectasis and pneumonitis. No evidence of pulmonary edema. The cardiomediastinal silhouette is within the normal range. No acute osseous change is evident. Reading Location: [address] Physical Exam Const Constitutional Narrative: on [...] prophylaxis: LMWH. Charges/Coding Visit Charges Inpatient E&M: 19441 Subs Hosp L2 12/28/24 140 <Electronically signed by Alexi Olivas DO> Cosigner Signature (if applicable): CC: ~ Signed [facility] Work Phone: 1(188) 271-201806-07-[address] [facility] Medical Records Department [address] [place] [address] Progress Note - Hospitalist 12/28/24 0751 MR#: [id number] Acct: [id number] Name: NAZARIO HUTTON Rep #:[id number] : 1950 74 From: Alexi Olivas DO [...] (Auto) 67.1, Lymph % (Auto) 9.8 L, Stone % (Auto) 11.2 H, Eos % (Auto) [...] 92.9 H, Lymph % (Auto) 5.0 L, Stone % (Auto) 1.4, Eos % (Auto) 0.0, [...] Bilateral lower lung airspace disease is seen, cxdn-apqmzde-dfpj-right. Differential diagnosis includes atelectasis and pneumonitis. No evidence of pulmonary edema. The cardiomediastinal silhouette is within the normal range. No acute osseous change is evident. Reading Location: [address] Physical Exam Const Constitutional Narrative: on [...] prophylaxis: LMWH. Charges/Coding Visit Charges Inpatient E&M: 38759 Subs Hosp L2 12/28/24 140 Cosigner Signature (if applicable): CC: ~ Signed [facility]06-06-2025 History and physical note Author Flakita lForentino [facility] Note Date/Time December 27, 2024 2:52p m [facility] Medical Records Department [address] [place] [address] H&P Exam - Hospitalist 12/27/24 1411 MR#: [id number] Acct: [id number] Name: NAZARIO HUTTON Rep #:[id number] : 1950 74 From: Flakita Florentino DO PCP: Dr. Valeriano Beasley MD Status:REG ER Location: ED HPI - General General Date of Admission: 12/27/24 Date of Service: 12/27/24 Chief Complaint: Tongue and lip swelling HPI Narrative NAZARIO HUTTON, is a 74 M who presented to the emergency department at [facility] on 12/27/2024 with tongue and lip [...] maintained on Solu-Medrol, H2 and H1 blockers. [facility] Medical History High serum parathyroid hormone (PTH) Heart murmur Elevated alkaline phosphatase level Elevated PSA Diverticulosis AVM (arteriovenous malformation) of colon Vitamin D deficiency Gout Alcohol abuse Essential hypertension Chest pain Anxiety Depression Myocardial infarct Chest pain Acute blood loss anemia Bloody diarrhea Coronary artery disease Atherosclerotic heart disease of grayling coronary artery without angina pectoris ST elevation [...] (Auto) 67.1, Lymph % (Auto) 9.8 L, Stone % (Auto) 11.2 H, Eos % (Auto) [...] Patient should follow-up as an outpatient with mid wife if has not already done so Chronic [...] Full code Charges/Coding Visit Charges Inpatient E&M: 69349 Init Hosp L2 12/27/24 1452 <Electronically signed by Flakita Florentino DO> Cosigner Signature (if applicable): CC: Dr. Valeriano Beasley MD; Dr. Flakita Florentino DO~ Signed [facility] Work Phone: 1(410) 912-835906-06-2025 Discharge summary Author Marino Holguin [facility] Note Date/Time December 27, 2024 2:20p m [facility] Medical Records Department [address] [place] [address] Emergency Department Summary 12/27/24 MR#: [id number] Acct: [id number] Name: NAZARIO HUTTON Rep #:[id number] : 1950 74 From: Marino Holguin MD [...] Coronary artery disease Atherosclerotic heart disease of grayling coronary artery without angina pectoris ST elevation [...] (Auto) 67.1 Lymph % (Auto) 9.8 L Stone % (Auto) 11.2 H Eos % (Auto) [...] is 82 with a first-degree AV block. [place] to the left. NM interval is 270 ms. QRS duration is [...] no mention of angioedema postmarketing reports through [employer]. Will review othersources. Of note patient was [...] prior records and laboratoryresults.), Discussing w/Patient &/or Family/Spot Wel[employer] (Patient was informed that he needs to [...] Eosinophilia, Lymphopenia Disposition Disposition: Acute Care Hospital [facility] What to do if you have Problems For any increased pain, shortness of breath, bleeding, nausea or vomiting, chestpain, or any unexpected problems, contact your Primary Care Provider. Call [facility] ([phone]) or report to the closest Emergency Room. Call 911 if necessary. 12/27/24 1420 <Electronically signed by Marino Holguin MD> Cosigner Signature (if applicable): CC: Dr. Valeriano Beasley MD ~ Signed [facility] Work Phone: 1(588) 716-474406-06-2025 Evaluation note* Diagnosis Onset Date Resolution Status Admit Date Acute respiratory failure resolved December 27, 2024 1:58pm Angioedema resolved December 27, 2024 1:58pm Eosinophilia resolved December 27 1:58pm Hypotension due to drugs resolved December 27, 2024 1:58pm Lymphopenia resolved December 27 1:58pm Monocytosis resolved December 27 1:58pm Acute cystitis without hematuria acu te January 23, 2025 10:37pm Acute lower gastrointestinal bleeding acute January 23, 2025 1 0:37pm Adverse drug reaction acute Jan 10:37pm Overweight (BMI 25.0-29.9) acute January 23, 2025 10:37pm ABLA (acute blood loss anemia) resol grace January 23, 2025 10:37pm History of GI diverticular bleed res olved January 23, 2025 10:37pm ABLA (acute blood loss anemia) resol grace January 29, 2025 10:49am History of GI diverticular bleed res olved January 29, 2025 10:49am Diverticula of colon acute Augu 2024 1:58pm Cirrhosis, alcoholic chronic Augu 2024 1:58pm [facility] Work Phone: 1(640) 427-395506-06-2025 History and physical note [facility] Medical Records Department [address] [place] [address] H&P Exam - Hospitalist 12/27/24 1411 MR#: [id number] Acct: [id number] Name: NAZARIO HUTTON Rep #:[id number] : 1950 74 From: Flakita Florentino DO PCP: Dr. Valeriano Beasley MD Status:REG ER Location: ED HPI - General General Date of Admission: 12/27/24 Date of Service: 12/27/24 Chief Complaint: Tongue and lip swelling HPI Narrative NAZARIO HUTTON, is a 74 M who presented to the emergency department at [facility] on 12/27/2024 with tongue and lip [...] maintained on Solu-Medrol, H2 and H1 blockers. [facility] Medical History High serum parathyroid hormone (PTH) Heart murmur Elevated alkaline phosphatase level Elevated PSA Diverticulosis AVM (arteriovenous malformation) of colon Vitamin D deficiency Gout Alcohol abuse Essential hypertension Chest pain Anxiety Depression Myocardial infarct Chest pain Acute blood loss anemia Bloody diarrhea Coronary artery disease Atherosclerotic heart disease of grayling coronary artery without angina pectoris ST elevation [...] (Auto) 67.1, Lymph % (Auto) 9.8 L, Stone % (Auto) 11.2 H, Eos % (Auto) [...] Patient should follow-up as an outpatient with mid wife if has not already done so Chronic [...] Full code Charges/Coding Visit Charges Inpatient E&M: 20244 Init Hosp L2 12/27/24 1459 Cosigner Signature (if applicable): CC: Dr. Valeriano Beasley MD; Dr. Flakita Florentino, DO~ Signed [facility]06-06-2025 Radiology Diagnostic study note [facility] Imaging Services [address] [place] [address] Chest 1 View (Portable) MR#: [id number] Acct: [id number] Name: NAZARIO HUTTON Rep #: [id number] : 1950 M 74 From: Hugh Berg MD PCP: Dr. Valeriano Beasley MD Status: REG ER Study:Chest 1 View (Portable) Date of Exam: 12/27/24 Exam# [id number] Ordering Dr: Jake Holguin MD PROCEDURE: CHEST [...] Bilateral lower lung airspace disease is seen, pcmi-ttwhqam-hgdl-right. Differential diagnosis includes atelectasis and pneumonitis. No evidence of pulmonary edema. The cardiomediastinal silhouette is within the normal range. No acute osseous change is evident. Reading Location: [address] CC: Dr. Valeriano Beasley MD; Dr. Marino Holguin MD ~ Accessioner: Signed [facility]06-06-2025 Discharge summary [facility] Medical Records Department [address] [place] [address] Emergency Department Summary 12/27/24 MR#: [id number] Acct: [id number] Name: NAZARIO HUTTON Rep #:[id number] : 1950 74 From: Marino Holguin MD [...] Coronary artery disease Atherosclerotic heart disease of grayling coronary artery without angina pectoris ST elevation [...] Std Deviation 51.5 H RDW Coeff of Droie 13.3 Plt Count 200 MPV 9.7 Immature Gran % (Auto) 0.300 Neut % (Auto) 67.1 Lymph % (Auto) 9.8 L Stone % (Auto) 11.2 H Eos % (Auto) [...] is 82 with a first-degree AV block. [place] to the left. NM interval is 270 ms. QRS duration is [...] no mention of angioedema postmarketing reports through [employer]. Will review othersources. Of note patient was [...] prior records and laboratoryresults.), Discussing w/Patient &/or Family/Spot Wel[employer] (Patient was informed that he needs to [...] Eosinophilia, Lymphopenia Disposition Disposition: Acute Care Hospital [facility] What to do if you have Problems For any increased pain, shortness of breath, bleeding, nausea or vomiting, chestpain, or any unexpected problems, contact your Primary Care Provider. Call [facility] ([phone]) or report tothe closest Emergency Room. Call 911 if necessary. 12/27/24 1420 Cosigner Signature (if applicable): CC: Dr. Valeriano Beasley MD ~ Signed [facility]06-06-2025 Discharge summary Author Marino Holguin [facility] Note Date/Time December 27, 2024 2:20p m [facility] Medical Records Department [address] [place] [address] Emergency Department Summary 12/27/24 MR#: [id number] Acct: [id number] Name: NAZARIO HUTTON Rep #:[id number] : 1950 74 From: Marino Holguin MD [...] similar symptoms: Yes Recent Illness/Hospitalization: No PFSH PFSH Medical History High serum parathyroid hormone (PTH) Heart murmur Elevated alkaline phosphatase level Elevated PSA Diverticulosis AVM (arteriovenous malformation) of colon Vitamin D deficiency Gout Alcohol abuse Essential hypertension Chest pain Anxiety Depression Myocardial infarct Chest pain Acute blood loss anemia Bloody diarrhea Coronary artery disease Atherosclerotic heart disease of grayling coronary artery without angina pectoris ST elevation [...] (Auto) 67.1 Lymph % (Auto) 9.8 L Stone % (Auto) 11.2 H Eos % (Auto) [...] is 82 with a first-degree AV block. [place] to the left. NM interval is 270 ms. QRS duration is [...] no mention of angioedema postmarketing reports through [employer]. Will review othersources. Of note patient was [...] prior records and laboratoryresults.), Discussing w/Patient &/or Family/[employer] (Patient was informed that he needs to [...] Eosinophilia, Lymphopenia Disposition Disposition: Acute Care Hospital [facility] What to do if you have Problems For any increased pain, shortness of breath, bleeding, nausea or vomiting, chestpain, or any unexpected problems, contact your Primary Care Provider. Call [facility] ([phone]) or report to the closest Emergency Room. Call 911 if necessary. 12/27/24 1420 <Electronically signed by Marino Holguin MD> Cosigner Signature (if applicable): CC: Dr. Valeriano Beasley MD ~ Signed [facility] Work Phone: 1(142) 862-319106-05-2025 NoteHNO ID: [id number] Author: LUPILLO MOURA LPN Service: ? Author Type: LICENSED NURSE Type: Progress Notes Filed: 12/26/2024 07:56 Note Text: Scan on 12/26/2024 7:26 AM by Provider, External, PA-C: Consultation - Cardiology [facility]06-05-2025 History of Present illness Narrative* Lupillo Moura LPN - 12/26/2024 7:56 AM EDT Scan on 12/26/2024 7:26 AM by Provider, External, ELIZABETH: Consultation - [facility] NoteHNO ID: [id number] Author: PATRIA KHANNA JR, MD Service: ? [...] tablet by mouth tw (more content not included)...[facility]06-02-2025 History of Present illness Narrative* Patria Khanna [...] tablet by mouth once daily. 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 PDMP website checked and validated. All prescriptions have been APPROPRIATELY filled. No suspiciousactivity was identified. 12/23/2024 by Patria Khanna MD [facility] Telephone encounter Note * Telephone Encounter - Flakita Pastor MA - 11/15/2024 2:33 PM EDT Additional message left for pt to call back. Flakita Pastor MA [facility]04-25-2025 Miscellaneous Notes* Telephone Encounter - Flakita Pastor MA - 11/15/2024 2:33 PM EDT Additional message left for pt to call back. Flakita Pastor MA * Telephone Encounter - Nahid Turner MA - 11/08/2024 9:10 AM EDT Called and left message on patients voicemail to return call to the office and ask to speak with a triage nurse. Nahid Turner MA * Telephone Encounter - Rupal Coe MA - 11/07/2024 10:19 AM EDT Left message for patient to return call to office Rupal Coe MA * Telephone Encounter - Ni Sauceda APRN.CNP - 11/07/2024 8:48 AM EDT Please let patient know his AAA screening is negative for aneurysm. [facility]04-22-2025 NoteHNO ID: [id number] Author: GANESH WHITE MA Service: ? Author Type: Map And Chart Mounter Type: Progress Notes Filed: 11/12/2024 16:25 Note Text: Scan on 11/05/2024 3:43 PM by Bing Salmeron PA-C: Chemistry Scan on 11/05/2024 5:16 PM by Bing Salmeron PA-C: Chemistry Ganesh White [facility]04-22-2025 History of Present illness Narrative* Ganesh White MA - 11/12/2024 4:24 PM EDT Scan on 11/05/2024 3:43 PM by Bing Salmeron PA-C: Chemistry Scan on 11/05/2024 5:16 PM by Bing Salmeron PA-C: Chemistry Ganesh White MA * Flakita Pastor MA - 11/05/2024 3:50 PM EDT Labs resulted at [facility]. View External Labs - Hematology [ID [id number]] documented in this encounterK[facility]04-22-2025 NoteHNO ID: [id number] Author: LUPILLO MOURA LPN Service: ? Author Type: LICENSED NURSE Type: Progress Notes Filed: 11/12/2024 07:16 Note Text: Scan on 11/11/2024 4:10 PM by Provider, KENNY SmartC: Consultation - [facility]04-22-2025 History of Present illness Narrative* Lupillo Moura LPN - 11/12/2024 7:16 AM EDT Scan on 11/11/2024 4:10 PM by ProviderBing PA-C: Consultation - documented in this encounterK[facility]04-18-2025 Telephone encounter Note * Telephone Encounter - Nahid Turner MA - 11/08/2024 9:10 AM EDT Called and left message on patients voicemail to return call to the office and ask to speak with a FM triage nurse. Nahid Turner MA [facility]04-17-2025 Telephone encounter Note* Telephone Encounter - Rupal Coe MA - 11/07/2024 10:19 AM EDT Left message for patient to return call to office Rupal Coe MA [facility]04-17-2025 Telephone encounter Note* Telephone Encounter - Ni Sauceda APRN.CNP - 11/07/2024 8:48 AM EDT Please let patient know his AAA screening is negative for aneurysm. [place] [id number] History of Present illness Narrative* Bhavani Liu [...] PATIENT PRESENTS WITH AN IMPLANTABLE OR ATTACHED METAL FENCE ERECTOR: No RADIOLOGY DEPARTMENT: Ultrasound PERIPHERAL IV DATA: Not applicable SIGNED BY: Bhavani Liu RDMS RVT November 06, 2024 4:44 PM documented in this encounterKettering Health04-16-2025 NoteHNO ID: [id number] Author: BHAVANI LIU RDMS Service: ? Author Type: Box Strapper Type: Progress Notes Filed: 11/06/2024 16:45 Note [...] PATIENT PRESENTS WITH AN IMPLANTABLE OR ATTACHED METAL FENCE ERECTOR: No RADIOLOGY DEPARTMENT: Ultrasound PERIPHERAL IV DATA: Not applicable SIGNED BY: Bhavani Liu RDMS RVT November 06, 2024 4:44 PM[facility] NoteHNO ID: [id number] Author: FLAKITA PASTOR MA Service: ? Author Type: Map And Chart Mounter Type: Progress Notes Filed: 11/12/2024 16:25 Note Text: Labs resulted at [facility]. View External Labs - Hematology [ID [id number]][facility] 11-05-2024 Evaluation note* Diagnosis Onset Date Resolution Status Admit Date Atherosclerotic heart diseas e of grayling coronary artery without angina pectoris acute November 05, 2024 12:58pm Essential hypertension acute Ap ril 2024 12:58pm Hyperlipidemia acute October 12:58pm Acute respiratory failure resolved December 27, 2024 1:58pm Angioedema resolved December 27, 2024 1:58pm Eosinophilia resolved December 27 1:58pm Hypotension due to drugs resolved December 27, 2024 1:58pm Lymphopenia resolved December 27 1:58pm Monocytosis resolved December 27 1:58pm [facility] Work Phone: 1(261) 406-693904-15-2025 Evaluation note* Diagnosis Onset Date Resolution Status Admit Date Atherosclerotic heart diseas e of grayling coronary artery without angina pectoris acute November 05, 2024 12:58pm Essential hypertension acute Ap ril 2024 12:58pm Hyperlipidemia acute October 12:58pm Acute respiratory failure resolved December 27, 2024 1:58pm Angioedema resolved December 27, 2024 1:58pm Eosinophilia resolved December 27 1:58pm Hypotension due to drugs resolved December 27, 2024 1:58pm Lymphopenia resolved December 27 1:58pm Monocytosis resolved December 27 1:58pm ABLA (acute blood loss anemia) acute January 23, 2025 10:37pm Acute cystitis without hematuria acu te January 23, 2025 10:37pm Acute lower gastrointestinal bleeding acute January 23, 2025 10:37pm Adverse drug reaction acute Jan 10:37pm History of GI diverticular bleed acu te January 23, 2025 10:37pm Overweight (BMI 25.0-29.9) acute January 23, 2025 10:37pm [facility] Work Phone: 1(911) 737-116704-15-2025 Evaluation note* Diagnosis Onset Date Resolution Status Admit Date Atherosclerotic heart diseas e of grayling coronary artery without angina pectoris acute November 05, 2024 12:58pm Essential hypertension acute Ap ril 2024 12:58pm Hyperlipidemia acute October 12:58pm Acute respiratory failure resolved December 27, 2024 1:58pm Angioedema resolved December 27, 2024 1:58pm Eosinophilia resolved December 27 1:58pm Hypotension due to drugs resolved December 27, 2024 1:58pm Lymphopenia resolved December 27 1:58pm Monocytosis resolved December 27 1:58pm ABLA (acute blood loss anemia) acute January 23, 2025 10:37pm Acute cystitis without hematuria acu te January 23, 2025 10:37pm Acute lower gastrointestinal bleeding acute January 23, 2025 10:37pm Adverse drug reaction acute Jan 10:37pm History of GI diverticular bleed acu te January 23, 2025 10:37pm Overweight (BMI 25.0-29.9) acute January 23, 2025 10:37pm ABLA (acute blood loss anemia) acute January 29, 2025 10:49am History of GI diverticular bleed acu te January 29, 2025 10:49am [facility] Work Phone: 1(152) 792-813104-15-2025 Evaluation note* Diagnosis Onset Date Resolution Status Admit Date Atherosclerotic heart diseas e of grayling coronary artery without angina pectoris acute November 05, 2024 12:58pm Essential hypertension acute Ap ril 2024 12:58pm Hyperlipidemia acute October 12:58pm Acute respiratory failure resolved December 27, 2024 1:58pm Angioedema resolved December 27, 2024 1:58pm Eosinophilia resolved December 27 1:58pm Hypotension due to drugs resolved December 27, 2024 1:58pm Lymphopenia resolved December 27 1:58pm Monocytosis resolved December 27 1:58pm Acute cystitis without hematuria acu te January 23, 2025 10:37pm Acute lower gastrointestinal bleeding acute January 23, 2025 10:37pm Adverse drug reaction acute Jan 10:37pm Overweight (BMI 25.0-29.9) acute January 23, 2025 10:37pm ABLA (acute blood loss anemia) resol grace January 23, 2025 10:37pm History of GI diverticular bleed res olved January 23, 2025 10:37pm ABLA (acute blood loss anemia) resol grace January 29, 2025 10:49am History of GI diverticular bleed res olved January 29, 2025 10:49am [facility] Work Phone: 1(904) 168-259204-15-2025 Evaluation note* Diagnosis Onset Date Resolution Status Admit Date Atherosclerotic heart diseas e of grayling coronary artery without angina pectoris acute November 05, 2024 12:58pm Essential hypertension acute Ap 2024 12:58pm Hyperlipidemia acute October 12:58pm Acute respiratory failure resolved December 27, 2024 1:58pm Angioedema resolved December 27, 2024 1:58pm Eosinophilia resolved December 27 1:58pm Hypotension due to drugs resolved December 27, 2024 1:58pm Lymphopenia resolved December 27 1:58pm Monocytosis resolved December 27 1:58pm Acute cystitis without hematuria acu te January 23, 2025 10:37pm Acute lower gastrointestinal bleeding acute January 23, 2025 1 0:37pm Adverse drug reaction acute Jan 10:37pm Overweight (BMI 25.0-29.9) acute January 23, 2025 10:37pm ABLA (acute blood loss anemia) resol grace January 23, 2025 10:37pm History of GI diverticular bleed res olved January 23, 2025 10:37pm ABLA (acute blood loss anemia) resol grace January 29, 2025 10:49am History of GI diverticular bleed res olved January 29, 2025 10:49am Diverticula of colon acute Augu 2024 1:58pm Cirrhosis, alcoholic chronic Augu 2024 1:58pm [facility] Work Phone: 1(620) 945-321504-11-2025 Instructions* Patient Instructions* Ni Sauceda APRN.CNP - 11/01/2024 11:08 AM EDT Vaccinations needed-DTaP, Shingrix, Hep A, RSV, Hep B documented in this encounterKettering Health04-11-2025 NoteHNO ID: [id number] Author: NI SAUCEDA APRN.MOTHER'S HELPER Service: ? 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 Per TequilaltmanLiudio aspirin, enteric coated (ASPIRIN, ENTERIC COATED) 81 [...] Advance Directive Discussion due on 07/24/2024 Covid-19 Vaccine( season) due on 10/30/2024 Annual PCP Team Chronic [...] Lymph 1.00 - 4.00 k/uL 0.59 (L) Stone% % 10.9 Abs Stone <0.87 k/uL 0.72 Eosin% % 7.0 Abs [...] Negative Ketones, Urine Negative Trace ! Specific [place], Ur 1.005 - 1.030 1.019 Hemoglobin/Blood,Ur Negative [...] 571.2, ICD10: K70.30 -Follows with Hepatology at [facility] 3. Advance directive discussed with patient - ICD9: V65.49, ICD10: Z71.89 - ADVANCE CARE PLAN DISCUSSION 4. Valvular heart disease - ICD9: 424.90, ICD10: I38 -Follows with cardiology at [place] and [facility] 5. Lumbosacral radiculopathy at L5 - ICD9: [...] ICD10: I25.10, I25.83 -Follows with cardiology at [place] and [facility] 8. Low vitamin D level - [...] - US SCREENING FOR AAA Ni Sauceda APRN.MOTHER'S HELPER documented in this encounterKettering Health04-08-2025 Progress note* Result Encounter Note - Stephanie Roy DO - 10/29/2024 5:16 PM EDT Can let him know the bone x-ray showed only signs of degenerative/arthritis with no suspicious lesions. Follow-up as scheduled. [facility] Work Phone: 1(551) 165-223304-08-2025 Miscellaneous Notes* Result Encounter Note - Stephanie Roy DO - 10/29/2024 5:16 PM EDT Can let him know the bone x-ray showed only signs of degenerative/arthritis with no suspicious lesions. Follow-up as scheduled. documented in this encounterKettering Health04-02-2025 History of Present illness Narrative* Kimberly Glass [...] PATIENT PRESENTS WITH AN IMPLANTABLE OR ATTACHED METAL FENCE ERECTOR: No RADIOLOGY DEPARTMENT: General X-ray: Exam(s) Completed: Bone Survey PERIPHERAL IV DATA: Not applicable SIGNED BY: RT Osman(R) October 23, 2024 2:49 PM documented in this encounterKettering Health04-02-2025 NoteHNO ID: [id number] Author: KIMBERLY GLASS RT(Federico) Service: Radiology Author Type: Technologist Type: Progress [...] PATIENT PRESENTS WITH AN IMPLANTABLE OR ATTACHED METAL FENCE ERECTOR: No RADIOLOGY DEPARTMENT: General X-ray: Exam(s) Completed: Bone Survey PERIPHERAL IV DATA: Not applicable SIGNED BY: Kimberly Glass, RT(R) October 23, 2024 2:49 [facility]04-02-2025 NoteHNO ID: [id number] Author: STEPHANIE ROY, DO Service: ? 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 Stephanie Roy DO documented in this encounterKettering Health04-02-2025 NoteHNO ID: [id number] Author: GANESH WHITE MA Service: ? Author Type: Map And Chart Mounter Type: Progress Notes Filed: 10/23/2024 11:25 Note Text: Scan on 10/21/2024 3:42 PM by Provider, External, PAOndinaC: Miscellaneous Lab Ganesh White [facility]04-02-2025 History of Present illness Narrative* Ganesh White MA - 10/23/2024 11:25 AM EDT Scan on 10/21/2024 3:42 PM by Provider, Bing PAOndinaC: Miscellaneous Lab Ganesh White MA documented in this encounterKettering Health03-11-2025 Telephone encounter Note * Telephone Encounter - Jagruti Reich - 10/01/2024 1:25 PM EDT Relayed message to patient. Lab and office visit scheduled with patient. Patient aware to knot picker cloth 24 hr urine container prior to 10/21 when he comes in for lab work. He willbring urine to that appt. [facility] Work Phone: 1(513) 732-764103-11-2025 Miscellaneous Notes* Telephone Encounter - Jagruti Reich - 10/01/2024 1:25 PM EDT Relayed message to patient. Lab and office visit scheduled with patient. Patient aware to knot picker cloth 24 hr urine container prior to 10/21 when he comes in for lab work. He willbring urine to that appt. * Telephone Encounter - Tayler Leahy LPN - 10/01/2024 8:37 AM EDT Second message left for patient to contact office. Tayler Leahy LPN * Telephone Encounter - Tayelr Leahy LPN - 09/30/2024 8:58 AM EDT Message left for patient to contact office. 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 Needs ionized calcium and 24-hour urine M spike then office visit with me. Stephanie Roy DO documented in this encounterKettering Health03-11-2025 Telephone encounter Note * Telephone Encounter - Tayler Leahy LPN - 10/01/2024 8:37 AM EDT Second message left for patient to contact office. Tayler Leahy LPN [facility]03-10-2025 Telephone encounter Note* Telephone Encounter - Tayler Leahy LPN - 09/30/2024 8:58 AM EDT Message left for patient to contact office. 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 Needs ionized calcium and 24-hour urine M spike then office visit with me. Stephanie Roy DO [facility]03-05-2025 History of Present illness Narrative* Stephanie Roy DO - 09/25/2024 2:00 PM EST Patient referred [...] lipid rich plaque 12/06/[address] Edwards cardio [place] Diverticulosis 09/05/2022 Elevated alkaline phosphatase [...] due to lower GI bleed from diverticulosis) Surys nodules 03/15/2021 Valvular heart disease 05/18/2023 Echo [...] tablet by mouth once daily. Per Ameena atorvastatin (LIPITOR) 80 mg tablet TAKE 1 [...] which included preparing to see the patient, [id number] patient care, completing clinical documentation, obtaining and/or reviewing separately obtained history, counseling and educating the patient/family/caregiver, ordering medications, rick ts, or procedures, communicating with other HCPs (not separately reported), and communicating results to the patient/family/caregiver. Stephanie Roy DO documented in this encounterKettering Health03-05-2025 NoteHNO ID: [id number] Author: STEPHANIE ROY DO Service: ? 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 Author Type: LICENSED NURSE Type: Progress Notes Filed: 09/24/2024 07:10 Note Text: Scan on 09/23/2024 4:55 PM by Provider, External, PAOndinaC: Consultation - Scan on 09/23/2024 10:57 PM by Provider, External, PAOndinaC: [facility] History of Present illness Narrative* Lupillo Moura LPN - 09/24/2024 6:59 AM EST Scan on 09/23/2024 4:55 PM by Provider, ELIZABETH Smart: Consultation - Scan on 09/23/2024 10:57 PM by Provider, ELIZABETH Smart: CT Scan documented in this encounterKettering Health03-03-2025 Radiology Diagnostic study note [facility] Imaging Services [address] [place], [place] [address] Abdomen Single View MR#: [id number] Acct: [id number] Name: NAZARIO HUTTON Rep #: [id number] : 1950 M 73 From: Alejandrina Garcia DO PCP: Dr. Valeriano Beasley MD Status: REG CLI Study:Abdomen Single View Date of Exam: 09/23/24 Exam# [id number] Ordering Dr: Irma Barron MD PROCEDURE: ABDOMEN [...] Beasley MD; Dr. Geovani Barron MD ~ Accessioner: Signed [facility]02-27-2025 Evaluation note* Diagnosis Onset Date Resolution Status Admit Date Kidney stone on left side acute September 19, 2024 1:55pm Cirrhosis, alcoholic chronic Febr ua2024 1:55pm Hx of lower gastrointestinal bleeding chronic September 19 025 1:55pm 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 Work Phone: 1(197) 680-693602-26-2025 NoteHNO ID: [id number] Author: GANESH WHITE MA Service: ? Author Type: Map And Chart Mounter Type: Progress Notes Filed: 09/18/2024 07:58 Note Text: Scan on 09/17/2024 4:35 AM by Provider, Bing PAOndinaC: Miscellaneous Lab Scan on 09/17/2024 9:16 AM by Provider, Bing PAOndinaC: Miscellaneous Lab Ganesh White [facility]02-26-2025 History of Present illness Narrative* Ganesh White MA - 09/18/2024 7:58 AM EST Scan on 09/17/2024 4:35 AM by Bing Salmeron PA-C: Miscellaneous Lab Scan on 09/17/2024 9:16 AM by Bing Salmeron PA-C: Miscellaneous Lab Ganesh White MA documented in this encounterKettering Health02-25-2025 NoteHNO ID: [id number] Author: LUPILLO MOURA LPN Service: ? Author Type: LICENSED NURSE Type: Progress Notes Filed: 09/17/2024 07:00 Note Text: Scan on 09/17/2024 4:35 AM by Bing Salmeron PA-C: Miscellaneous Lab [facility]02-25-2025 History of Present illness Narrative* Lupillo Moura LPN - 09/17/2024 7:00 AM EST Scan on 09/17/2024 4:35 AM by Bing Salmeron PA-C: Miscellaneous Lab documented in this encounterKettering Health02-21-2025 NoteHNO ID: [id number] Author: LUPILLO MOURA LPN Service: ? Author Type: LICENSED NURSE Type: Progress Notes Filed: 09/13/2024 07:27 Note Text: Scan on 09/12/2024 5:13 PM by Bing Salmeron PA-C: Chemistry Scan on 09/12/2024 4:19 PM by Bing Salmeron PA-C: Chemistry Scan on 09/12/2024 3:26 PM by Bing Salmeron PA-C: [facility] History of Present illness Narrative* Lupillo Moura LPN - 09/13/2024 7:27 AM EST Scan on 09/12/2024 5:13 PM by Bing Salmeron PA-C: Chemistry Scan on 09/12/2024 4:19 PM by Bing Salmeron PA-C: Chemistry Scan on 09/12/2024 3:26 PM by Bing Salmeron PA-C: Hematology documented in this encounterKettering Health02-15-2025 NoteHNO ID: [id number] Author: LUPILLO MOURA LPN Service: ? Author Type: LICENSED NURSE Type: Progress Notes Filed: 09/07/2024 10:31 Note Text: Scan on 09/06/2024 6:27 PM by Bing Salmeron PA-C: [facility] History of Present illness Narrative* Lupillo Moura LPN - 09/07/2024 10:31 AM EST Scan on 09/06/2024 6:27 PM by Bing Salmeron PA-C: CT Scan documented in this encounterKettering Health02-11-2025 History of Present illness Narrative* Nyla De Jesus DO - 09/03/2024 3:10 PM EST Images from the original note were not included. Rheumatology Clinic New Patient Virtual Note Date of Service: 09/03/2024 Patient: Nazario Hutton Medical Record: [id number] Primary Care Physician: Valeriano Beasley MD Last [facility] Referring Provider: Patria Khanna [address] [place] [address] Khanna, Patria Solis [...] went to neurology. 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 [facility] on 09/03/24 C3 COMPLEMENT C4 COMPLEMENT SEDIMENTATION RATE, WESTERGREN C-REACTIVE PROTEIN DNA ANTIBODY DS BLD COMPLETE BLOOD COUNT AND DIFFERENTIAL COMPREHENSIVE METABOLIC PANEL CONSULT TO RHEUM/IMMUN DISEASE No follow-ups on file. Nyla De Jesus DO Rheumatology 09/02/2024 I spent a total of 62 minutes on the date of the service which included preparing to see the patient, [id number] patient care, completing clinical documentation, obtaining and/or reviewing separately obtained history, performing a medically appropriate examination, counseling and educating the pat ient/family/caregiver, ordering medications, tests, or procedures, communicating with other HCPs (not separately reported), independently interpreting results (not separately reported), and communicating results to the patient/family/caregiver. documented in this encounterKettering Health02-11-2025 NoteHNO ID: [id number] Author: NYLA DE JESUS DO Service: ? Author Type: Physician Type: Progress Notes Filed: 09/04/2024 10:18 Note Text: Rheumatology Clinic New Patient Virtual Note Date of Service: 09/03/2024 Patient: Nazario Hutton Medical Record: [id number] Primary Care Physician: Valeriano Beasley MD Last Rheumatology visit: [facility] at [facility] Referring Provider: Patria Khanna [facility] [place] [address] Consultation requested by Patria Sarah Jr., MD for an opinion regarding positive [...] went to neurology. He was referred to occupational medicine specialist and was told that some nerve [...] diphenhydrAMINE (BENADRYL) 25 m (more content not included)...[facility]02-11-2025 Telephone encounter Note* Telephone Encounter - Bhavani Austin LPN - 09/03/2024 7:52 AM EST ----- Message from Patria Khanna MD sent at 09/02/2024 4:06 PM EST ----- Please let patient know that given the findings of his lab work thus far, I am concerned for a plasma cell disorder, and would like to arrange an evaluation by hematology. If he agrees, I will place consult. [facility]02-11-2025 Miscellaneous Notes* Telephone Encounter - Bhavani Austin LPN - 09/03/2024 7:52 AM EST ----- Message from Patria Khanna MD sent at 09/02/2024 4:06 PM EST ----- Please let patient know that given the findings of his lab work thus far, I am concerned for a plasma cell disorder, and would like to arrange an evaluation by hematology. If he agrees, I will place consult. documented in this encounterKettering Health02-11-2025 Telephone encounter Note * Telephone Encounter - Bhavani Austin LPN - 09/03/2024 7:43 AM EST ----- Message from Patria Khanna MD sent at 09/02/2024 4:06 PM EST ----- Please let patient know that given the findings of his lab work thus far, I am concerned for a plasma cell disorder, and would like to arrange an evaluation by hematology. If he agrees, I will place consult. [facility]02-11-2025 Miscellaneous Notes* Telephone Encounter - Bhavani Austin LPN - 09/03/2024 7:43 AM EST ----- Message from Patria Khanna MD sent at 09/02/2024 4:06 PM EST ----- Please let patient know that given the findings of his lab work thus far, I am concerned for a plasma cell disorder, and would like to arrange an evaluation by hematology. If he agrees, I will place consult. documented in this encounterKettering Health02-07-2025 NoteHNO ID: [id number] Author: PATRIA KHANNA JR, MD Service: ? 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 [...] Sleep Apnea Probability Score: 67 (Recommend sleep study)[facility]02-05-2025 NoteHNO ID: [id number] Author: LUPILLO MOURA LPN Service: ? Author Type: LICENSED NURSE Type: Progress Notes Filed: 08/28/2024 07:04 Note Text: Scan on 08/27/2024 4:55 PM by Provider, External, PAOndinaC: Consultation - [facility]02-05-2025 History of Present illness Narrative* Lupillo Moura LPN - 08/28/2024 7:04 AM EST Scan on 08/27/2024 4:55 PM by Provider, ELIZABETH Smart: Consultation - documented in this encounterKettering Health01-27-2025 NoteHNO ID: [id number] Author: ARUN CHRISTIAN, DO Service: ? 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 documented in this encounterKettering Health01-27-2025 NoteHNO ID: [id number] Author: OLGA MARCIAL RN Service: ? Author [...] from Atenolol to Cervedilol and Sertraline to FLUoxetine.[facility] 07-31-2024 History of Present illness Narrative* Valeriano [...] (arteriovenous malformation) of colon 09/14/[address] 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 Per Ameena atorvastatin (LIPITOR) 80 mg tablet TAKE 1 [...] 995.1, ICD10: T78.3XXD - discussed referral to mid wife and patient agrees. Consult placed. - discussed [...] which included preparing to see the patient, vieo-bs-dney patient care, completing clinical documentation, performing a medically appropriate examination, counseling and educating the patient/family/caregiver and ordering medications, tests, or procedures. Valeriano Beasley MD documented in this encounterKettering Health01-08-2025 NoteHNO ID: [id number] Author: VALERIANO BEASLEY MD Service: ? 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 Pineda Styles RN July 19, 2024 2:43 PM [facility]12-27-2024 Miscellaneous Notes* Telephone Encounter - Pineda Styles [...] Needs 30 day supply to go to [facility] and 90 day supply to go to [facility]. Pineda Styles RN July 19, 2024 2:43 PM documented in this encounterKettering Health12-27-2024 NoteHNO ID: [id number] Author: LUPILLO MOURA LPN Service: ? Author Type: LICENSED NURSE Type: Progress Notes Filed: 07/19/2024 07:31 Note Text: Scan on 07/18/2024 4:24 PM by Bing Salmeron PA-C: [facility] - [facility]12-27-[facility] History of Present illness Narrative* Lupillo Moura LPN - 07/19/2024 7:31 AM EST Scan on 07/18/2024 4:24 PM by Bing Salmeron PA-C: Consultation - Emergency Medicine documented in this encounterKettering Health11-13-2024 Note* Addendum Note - Valeriano Beasley MD - 06/05/2024 9:08 AM ESTAddended by: VALERIANO BEASLEY on: 06/05/2024 09:08 AM Modules accepted: Orders [facility]11-13-2024 Miscellaneous Notes* Addendum Note - Valeriano Beasley MD - 06/05/2024 9:08 AM ESTAddended by: VALERIANO BEASLEY on: 06/05/2024 09:08 AM Modules accepted: Orders documented in this encounterKettering Health11-13-2024 NoteHNO ID: [id number] Author: LUPILLO MOURA LPN Service: ? Author Type: LICENSED NURSE Type: Progress Notes Filed: 06/05/2024 07:36 Note Text: Scan on 06/04/2024 2:56 PM by ProviderBing PA-C: Consultation - GI [facility]11-13-2024 History of Present illness Narrative* Lupillo Moura LPN - 06/05/2024 7:36 AM EST Scan on 06/04/2024 2:56 PM by ProviderBing PA-C: Consultation - GI documented in this encounterKettering Health11-07-2024 NoteHNO ID: [id number] Author: MERRICK SU MA Service: ? Author Type: Map And Chart Mounter Type: Progress Notes Filed: 05/30/2024 13:55 Note Text: Scan on 05/30/2024 1:20 PM by ProviderBing PA-C: [facility]11[facility] History of Present illness Narrative* Merrick Su MA - 05/30/2024 1:48 PM EST Scan on 05/30/2024 1:20 PM by Provider, ELIZABETH Smart: Consultation - Cardiology documented in this encounterKettering Health11-06-2024 Note* Addendum Note - Suzanna Dawson PA-C - 05/29/2024 1:34 PM ESTAddended by: SUZANNA BYERS on: 05/29/2024 01:34 PM Modules accepted: Level of Service [facility]11-06-2024 Miscellaneous Notes* Addendum Note - Suzanna Dawson PA-C - 05/29/2024 1:34 PM ESTAddended by: SUZANNA BYERS on: 05/29/2024 01:34 PM Modules accepted: Level of Service documented in this encounterKettering Health11-06-2024 NoteHNO ID: [id number] Author: SUZANNA DAWSON PA-C Service: ? 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 Author Type: LICENSED NURSE Type: Progress Notes Filed: 05/28/2024 08:48 Note Text: Scan on 05/27/2024 4:25 PM by ProviderBing PA-C: Consultation - [facility]11-05-2024 History of Present illness Narrative* Lupillo Moura LPN - 05/28/2024 8:48 AM EST Scan on 05/27/2024 4:25 PM by Bing Salmeron PA-C: Consultation - documented in this encounterKettering Health10-29-2024 Telephone encounter Note * Telephone Encounter - Heron Enriquez LPN - 05/21/2024 2:40 PM EDT Pt returned call to office. Notified of results. He verbalized understanding. Pt also mentions he has an appt on May [address] Barron and Jun [address] Blanco. Heron Enriquez LPN [facility]10-29-2024 Miscellaneous Notes* Telephone Encounter - Heron Enriquez [...] EDT Negative for hepatitis. documented in this encounterKettering Health10-29-2024 Telephone encounter Note * Telephone Encounter - Flakita Pastor MA - 05/21/2024 9:21 AM EDT Additional message left for pt to call back. Flakita Pastor MA [facility]10-28-2024 Telephone encounter Note* Telephone Encounter - Lupillo Moura LPN - 05/20/2024 9:51 AM EDT Pt did read My Chart Message. Will close this encounter. Lupillo Moura LPN [facility]10-28-2024 Miscellaneous Notes* Telephone Encounter - Lupillo Moura [...] 11:25 AM EDT Also sent pt a msg with phone numbers. Lupillo Moura LPN * Telephone Encounter - Lupillo Moura LPN - 05/15/2024 1:16 PM EDT Left message for pt to contact office for phone numbers. Dr Chacon [phone] Dr Barron [phone]. Please have pt contact them to schedule [...] from September per patient request. Pineda Styles, RN * Telephone Encounter - Lupillo Moura LPN [...] he wish to stay in [place] with [place] at [facility]. Or does he prefer to stay with [facility]? I also need to do a [...] results of pt's US ordered by Suzanna done at [facility]. Lupillo Morua LPN Scan on 05/14/2024 2:31 PM by Provider, ELIZABETH Smart: Ultrasound documented in this encounterKettering Health10-28-2024 Telephone encounter Note * Telephone Encounter - Ganesh White MA - 05/20/2024 9:41 AM EDT Left additional message for patient to contact office. Ganesh White MA [facility]10-28-2024 Telephone encounter Note* Telephone Encounter - Lupillo Moura LPN - 05/20/2024 9:10 AM EDT Left message for pt to contact office. Lupillo Moura LPN [facility]10-28-2024 Telephone encounter Note* Telephone Encounter - Suzanna Dawson PA-C - 05/20/2024 7:53 AM EDT Negative for hepatitis. [facility]10-25-2024 Telephone encounter Note* Telephone Encounter - Lupillo Moura LPN - 05/17/2024 8:53 AM EDT Left additional message for pt to contact office. Lupillo Moura LPN [facility]10-24-2024 Telephone encounter Note* Telephone Encounter - Lupillo Moura LPN - 05/16/2024 11:25 AM EDT Also sent pt a [facility] with phone numbers. Lupillo Moura LPN [facility]10-23-2024 Telephone encounter Note* Telephone Encounter - Lupillo Moura LPN - 05/15/2024 1:16 PM EDT Left message for pt to contact office for phone numbers. Dr Chacon [phone] Dr Barron [phone]. Please have pt contact them to schedule if he does not hear from their offices. All info has been faxed to Dr Chacon and Dr Barron as per below. Lupillo Moura LPN [facility]10-23-2024 Telephone encounter Note* Telephone Encounter - Suzanna Dawson PA-C - 05/15/2024 12:46 PM EDT Consult placed. Please give patient phone numbers to schedule. [facility]10-23-2024 Telephone encounter Note* Telephone Encounter - Pineda Styles RN - 05/15/2024 12:07 PM EDT Patient returns call and results and provider message reviewed. Patient would like to stay local with Dr. Chacon as he has seen him in the past for other issues. Also, reports that he has not seen Dr. Barron. Will refax referral from September per patient request. Pineda Styles RN [facility]10-23-2024 Telephone encounter Note* Telephone Encounter - Lupillo Moura LPN - 05/15/2024 9:18 AM EDT Left message for pt to contact office. 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 We need to get him in with a liver specialist. Does he wish to stay in [place] with [place] at [facility]. Or does he prefer to stay with [facility]? I also need to do a hepatitis panel on him. He had declined hep C screening in past but given this finding, I think we need to check this. Also did he ever see dr. Barron (urology) for his kidney cysts/lesion?? Suzanna Dawson PA-C [facility]10-22-2024 Telephone encounter Note* Telephone Encounter - Lupillo Moura LPN - 05/14/2024 2:45 PM EDT Received results of pt's US ordered by Suzanna mosher at [facility]. Lupillo Moura LPN Scan on 05/14/2024 2:31 PM by ProviderBing PA-C: Ultrasound [facility]10-21-2024 Telephone encounter Note* Telephone Encounter - Kirsten Marc RN - 05/13/2024 3:14 PM EDT Patient calling with an order related question. Information provided. Kirsten Marc, OLYA [facility]10-21-2024 Miscellaneous Notes* Telephone Encounter - Kirsten Marc RN - 05/13/2024 3:14 PM EDT Patient calling with an order related question. Information provided. Kirsten Marc RN documented in this encounterKettering Health10-09-2024 Instructions* Patient Instructions* Suzanna Dawson PA-C - 05/01/2024 1:44 PM EDT Screening schedule The following prevention plan is recommended: Shingrix Vaccine(1 of 2) Never done DTaP,Tdap,Td Vaccine(2 - Td or Tdap) due on 03/04/2018 Advance Directive Discussion due on 07/24/2023 Influenza Vaccine(1) due on 03/24/2024 Covid-19 Vaccine() due on 03/24/2024 WHAT YOU CAN DO [...] review all the medicines you take, even apqc-ifr-qrqfqbn medicines. As you get older, the way [...] have certain medical conditions. documented in this encounterKettering Health10-09-2024 NoteHNO ID: [id number] Author: SUZANNA DAWSON PA-C Service: ? 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 [...] place - ICD9: V49.89, ICD10: Z78.9 6. Relief Pilot's nodules - ICD9: 698.3, ICD10: L28.1 Advised [...] elevated Will get US with elastrography at [facility]. 16. Alcohol abuse - ICD9: 305.00, ICD10: F10.10 Advised to decrease Avoid binge Suzanna Dawson PA-C I spent a total of 45 minutes on the date of the service which included preparing to see the patient, hlrr-zs-rewc patient care, completing clinical documentation, obtaining and/or reviewing separately obtained history, performing a medically appropriate examination, counseling and educating the pat ient/family/caregiver, and ordering medications, tests, or procedures. documented in this encounterKettering Health10-09-2024 Telephone encounter Note * Telephone Encounter - Alexia Waggoner LPN - 05/01/2024 8:29 AM EDT Lisa with Dr. Vargas's office (cardiology) called for recent lipid lab work. Pt has an apt. Pt was identified with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 04/14/22 BUN/Cr 10/0.68. Hospital Course: 1. Rectal bleeding with acute on chronic anemia and hypotension/non-STEMI type II with a history of CAD status post stent/HTN/HLD?71-year-old male presented [facility] with bloody diarrhea. He initially had an [...] doing. Because of his non-STEMI at at family's insistence he was started on a heparin [...] (Auto) 67.3, Lymph % (Auto) 10.0 L, Stone % (Auto) 13.8 H, Eos % (Auto) [...] Instructions: Resume on 10/01/22. Hold until your PCP/[facility] [employer] decide to restart Label Comments: TAKE 1 [...] Self Care Charges/Coding Visit Charges Inpatient E&M: 31439 Disch Hosp >30min 09/09/22 1454 <Electronically signed by Obdulio Crespo MD> Cosigner [...] going home today. Visit Charges Inpatient E&M: 09486 Disch Hosp >30min 09/10/22 1328<Electronically signed by Obdulio Crespo MD> Cosigner Signature (if applicable): cc: Dr. Valeriano Beasley MD; Dr. Obdulio Crespo MD ~* Signed [facility] Work Phone: 1(335) 947-737702-17-[address] September 09, 2022 9:46am Note Date/Time September 09, 2022 9:42am [facility] Medical Records Department [address] [place] [address] Instructions for Home/Discharge Instructions 09/09/22 0941 MR#: [id number] Acct: [id number] Name: NAZARIO HUTTON Rep #:[id number] : 1950 71 From: Obdulio goyal MD [...] Instructions: Resume on 10/01/22. Hold until your PCP/[facility] [employer] decide to restart Label Comments: TAKE 1 [...] MD; Dr. Melissa Corbin MD ~ Signed [facility] Work Phone: 1(904) 351-668702-16-2023 Progress note Author Ahmet Chacon [facility] September 08, 2022 6:54pm Note Date/Time September 08, 2022 6:54pm [facility] Medical Records Department [address] [place] [address] Progress Note 09/08/22 1853 MR#: [id number] Acct: [id number] Name: NAZARIO HUTTON Rep #:[id number] : 1950 71 From: Ahmet Friend DO PCP: Dr. Valeriano Beasley MD Status:ADM IN Location: [place] [address] Subjective Subjective Patient says that he still [...] (Auto) 65.0, Lymph % (Auto) 10.4 L, Stone % (Auto) 15.3 H, Eos % (Auto) [...] GI standpoint. Charges/Coding Visit Charges Inpatient E&M: 66654 Subs Hosp L3 09/08/22 1854 <Electronically signed by Ahmet Friend DO> Ahmet Friend DO Cosigner Signature (if applicable): CC: ~ Signed [facility] Work Phone: 1(859) 787-976502-16-[address] September 08, 2022 4:14pm Note Date/Time September 08, 2022 4:14pm [facility] Medical Records Department [address] [place] [address] Progress Note - Hospitalist 09/08/22 1613 MR#: [id number] Acct: [id number] Name: NAZARIO HUTTON Rep #:[id number] : 1950 71 From: Obdulio goyal MD PCP: Dr. Valeriano Beasley MD Status:ADM IN Location: [place] [address] Reason for Visit Reason for Visit: Diagnoses [...] (Auto) 65.0, Lymph % (Auto) 10.4 L, Stone % (Auto) 15.3 H, Eos % (Auto) [...] mild segmental systolic dysfunction. Records requested from [facility] * Appreciate cardiology's assistance, will restart Plavix by itself in about a week #Acute alcohol withdrawal * patient has a history of heavy alcohol use, and drinks 4-6 drinks daily. * alcohol withdrawal protocol with ativan. * on folic acid, thiamine and multivitamin. DVT: SCDs Charges/Coding Visit Charges Inpatient E&M: 29536 Subs Hosp L2 09/08/22 1614 <Electronically signed by Obdulio Crespo MD> Cosigner Signature (if applicable): CC: ~ Signed [facility] Work Phone: 1(489) 512-584502-15-2023 Progress note Author Ahmet Friend [facility] September 07, 2022 7:30pm Note Date/Time September 07, 2022 7:30pm [facility] Medical Records Department [address] [place] [address] Progress Note 09/07/221928 MR#: [id number] Acct: [id number] Name: NAZARIO HUTTON Rep #:[id number] : 1950 71 From: Ahmet Friend DO PCP: Dr. Valeriano Beasley MD Status:ADM IN Location: [place] [address] Subjective Subjective Patient did have a bloody [...] (Auto) 69.9, Lymph % (Auto) 8.5 L, Stone % (Auto) 11.9 H, Eos % (Auto) [...] GI standpoint. Charges/Coding Visit Charges Inpatient E&M: 58830 Subs Hosp L3 09/07/221929 <Electronically signed by Ahmet Chacon DO> Ahmet Chcaon DO Cosigner Signature (if applicable): CC: ~ Signed [facility] Work Phone: 1(750) 620-182202-15-[address] September 07, 2022 12:54pm Note Date/Time September 07, 2022 12:54pm [facility] Medical Records Department [address] [place] [address] Progress Note - Hospitalist 09/07/22 1251 MR#: [id number] Acct: [id number] Name: NAZRAIO HUTTON Rep #:[id number] : 1950 71 From: Obdulio goyla MD PCP: Dr. Valeriano Beasley MD Status:ADM IN Location: [place] [address] Reason for Visit Reason for Visit: Diagnoses [...] (Auto) 69.9, Lymph % (Auto) 8.5 L, Stone % (Auto) 11.9 H, Eos % (Auto) [...] Glucose 91, Calcium 7.7 L Micro: Microbiology 02/10/23 22:40 Stool Stool Lactoferrin - Final 09/02/22 [...] mild segmental systolic dysfunction. Records requested from [facility] * Appreciate cardiology's assistance, will restart Plavix by itself in about a week #Acute alcohol withdrawal * patient has a history of heavy alcohol use, and drinks 4-6 drinks daily. * alcohol withdrawal protocol with ativan. * on folic acid, thiamine and multivitamin. DVT: SCDs Charges/Coding Visit Charges Inpatient E&M: 79454 Subs Hosp L2 09/07/22 1250 <Electronically signed by Obdulio Crespo MD> Cosigner Signature (if applicable): CC: ~ Signed [facility] Work Phone: 1(745) 377-464402-15-[address]vas [facility] September 07, 2022 8:04am Note Date/Time September 07, 2022 8:03am [facility] Medical Records Department [address] [place] [address] Progress Note - Cardiology 09/07/22 0800 MR#: [id number] Acct: [id number] Name: NAZARIO HUTTON Rep #:[id number] : 1950 71 From: Lukas Cuevas MD PCP: Dr. Valeriano Beasley MD Status:ADM IN Location: [place] [address] Subjective Subjective Patient seen and evaluated. Objective [...] (Auto) 69.9, Lymph % (Auto) 8.5 L, Stone % (Auto) 11.9 H, Eos % (Auto) [...] (Auto) 69.9, Lymph % (Auto) 8.5 L, Stone % (Auto) 11.9 H, Eos % (Auto) [...] Cosigner Signature (if applicable): CC: ~ Signed [facility] Work Phone: 1(852) 742-526702-14-2023 Progress note Author Ahmet Chacon [facility] September 06, 2022 7:35pm Note Date/Time September 06, 2022 7:35pm [facility] Medical Records Department [address] [place] [address] Progress Note 09/06/221932 MR#: [id number] Acct: [id number] Name: NAZARIO HUTTON Rep #:[id number] : 1950 71 From: Ahmet Chacon DO PCP: Dr. Valeriano Beasley MD Status:ADM IN Location: [place] [address] Subjective Subjective Patient underwent cardiac catheterization today. [...] % (Auto) 69.2, Lymph % (Auto) 10.6L, Stone % (Auto) 10.7 H, Eos % (Auto) [...] discharged tomorrow. Charges/Coding Visit Charges Inpatient E&M: 91278 Subs Hosp L3 09/06/221934 <Electronically signed by Ahmet Chacon DO> Ahmet Chacon DO Cosigner Signature (if applicable): CC: ~ Signed [facility] Work Phone: 1(347) 192-472302-14-[address]vas [facility] September 06, 2022 5:44pm Note Date/Time September 04, 2022 6:46pm [facility] Medical Records Department [address] [place] [address] Progress Note - Cardiology 09/04/22 1845 MR#: [id number] Acct: [id number] Name: NAZARIO HUTTON Rep #:[id number] : 1950 71 From: Lukas Cuevas MD PCP: Dr. Valeriano Beasley MD Status:ADM IN Location: [place] [address]- 1 Subjective Subjective Patient seen and evaluated. Events [...] hr 09/02/22 16:35: Crossmatch See Detail 09/03/22 20:25: Troponin I High Sens 3730 [...] 70.3 H, Lymph % (Auto) 12.1 L, Stone % (Auto) 11.5 H, Eos % (Auto) [...] 70.3 H, Lymph % (Auto) 12.1 L, Stone % (Auto) 11.5 H, Eos % (Auto) [...] to call if any issues arise. 09/06/22 4068 <Electronically signed by Lukas Cuevas MD> Cosigner Signature (if applicable): CC: ~ Signed [facility] Work Phone: 1([phone]) 752-234502-14-[address] September 06, 2022 5:01pm Note Date/Time September 06, 2022 5:01pm [facility] Medical Records Department [address] [place] [address] Progress Note - Hospitalist 09/06/22 6618 MR#: [id number] Acct: [id number] Name: NAZARIO HUTTON Rep #:[id number] : 1950 71 From: Obdulio goyal MD PCP: Dr. Valeriano Beasley MD Status:ADM IN Location: [place] [address] Reason for Visit Reason for Visit: Diagnoses [...] % (Auto) 69.2, Lymph % (Auto) 10.6L, Stone % (Auto) 10.7 H, Eos % (Auto) [...] mild segmental systolic dysfunction. Records requested from [facility] * cardiology on board #Acute alcohol withdrawal * patient has a history of heavy alcohol use, and drinks 4-6 drinks daily. * alcohol withdrawal protocol with ativan. * on folic acid, thiamine and multivite. DVT: SCDs Charges/Coding Visit Charges Inpatient E&M: 25977 Subs Hosp L2 09/06/22 1701 <Electronically signed by Obdulio Crespo MD> Cosigner Signature (if applicable): CC: ~ Signed [facility] Work Phone: 1(129) 659-727802-14-[address]vas [facility] September 06, 2022 8:50am Note Date/Time September 06, 2022 8:50am [facility] Medical Records Department [address] [place] [address] Progress Note - Cardiology 09/06/22 0847 MR#: [id number] Acct: [id number] Name: NAZARIO HUTTON Rep #:[id number] : 1950 71 From: Lukas Cuevas MD PCP: Dr. Valeriano Beasley MD Status:ADM IN Location: [place] [address] Subjective Subjective Patient seen and evaluated. Patient [...] % (Auto) 69.2, Lymph % (Auto) 10.6L, Stone % (Auto) 10.7 H, Eos % (Auto) [...] (Auto) 69.2, Lymph % (Auto) 10.6 L, Stone % (Auto) 10.7 H, Eos % (Auto) [...] to call if any issues arise. 09/06/22 0850 <Electronically signed by Lukas Cuevas MD> Cosigner Signature (if applicable): CC: ~ Signed [facility] Work Phone: 1(172) 667-806602-13-2023 Progress note Author Ahmet Friend [facility] September 05, 2022 5:31pm Note Date/Time September 05, 2022 5:23pm [facility] Medical Records Department [address] [place] [address] Progress Note 09/05/22 1722 MR#: [id number] Acct: [id number] Name: NAZARIO HUTTON Rep #:[id number] : 1950 71 From: Ahmet Chacon DO PCP: Dr. Valeriano Beasley MD Status:ADM IN Location: [place] [id number]- 1 Subjective Subjective Patient underwent to colonoscopy [...] liquid diet. Charges/Coding Visit Charges Inpatient E&M: 34211 Subs Hosp L3 09/05/22 1731 <Electronically signed by Ahmet Chacon DO> Ahmet Chacon DO Cosigner Signature (if applicable): CC: ~ Signed [facility] Work Phone: 1(987) 282-641802-13-[address]o [facility] September 05, 2022 4:23pm Note Date/Time September 05, 2022 4:23pm [facility] Medical Records Department [address] [place] [address] Progress Note - Hospitalist 09/05/22 1618 MR#: [id number] Acct: [id number] Name: NAZARIO HUTTON Rep #:[id number] : 1950 71 From: Obdulio goyal MD PCP: Dr. Valeriano Beasley MD Status:ADM IN Location: [place] [id number]- 1 Reason for Visit Reason for Visit: [...] mild segmental systolic dysfunction. Records requested from [facility] * cardiology on board #Acute alcohol withdrawal * patient has a history of heavy alcohol use, and drinks 4-6 drinks daily. * alcohol withdrawal protocol with ativan. * on folic acid, thiamine and multivite. DVT: SCDs Charges/Coding Visit Charges Inpatient E&M: 76074 Subs Hosp L2 09/05/22 1623 <Electronically signed by Obdulio Crespo MD> Cosigner Signature (if applicable): CC: ~ Signed [facility] Work Phone: 1(630) 765-892202-13-2023 History of Present illness Narrative* Ganesh White MA - 09/05/2022 2:31 PM EST Scan on 09/04/2022 5:29 PM by External Provider: EGD Scan on 09/04/2022 5:41 PM by External Provider: Colonoscopy Scan on 09/04/2022 5:42 PM by External Provider: Colonoscopy Please review. Ganesh White MA documented [facility] History of Present illness Narrative* Ganesh White MA - 09/05/2022 2:29 PM EST Scan on 09/04/2022 9:46 AM by External Provider: Consultation - Emergency Medicine Ganesh White MA documented in this encounterK[facility]02-13-2023 History of Past illness Narrative* Problem Noted [...] of this encounter (statuses as of 04/21/2023) [facility] History of Past illness Narrative* Problem Noted [...] of this encounter (statuses as of 05/19/2023) [facility] of Past illness Narrative* Problem Noted [...] of this encounter (statuses as of 06/01/2023) [facility] of Past illness Narrative* Problem Noted [...] of this encounter (statuses as of 08/25/2023) [facility] of Past illness Narrative* Problem Noted [...] of this encounter (statuses as of 08/25/2023) [facility] of Past illness Narrative* Problem Noted [...] of this encounter (statuses as of 08/29/2023) [facility] of Past illness Narrative* Problem Noted [...] of this encounter (statuses as of 09/01/2023) [facility] of Past illness Narrative* Problem Noted [...] of this encounter (statuses as of 09/04/2023) [facility] of Past illness Narrative* Problem Noted [...] of this encounter (statuses as of 09/06/2023) [facility] of Past illness Narrative* Problem Noted [...] of this encounter (statuses as of 09/07/2023) [facility] of Past illness Narrative* Problem Noted [...] of this encounter (statuses as of 09/26/2023) [facility] of Past illness Narrative* Problem Noted [...] of this encounter (statuses as of 09/29/2023) [facility] of Past illness Narrative* Problem Noted [...] of this encounter (statuses as of 10/04/2023) [facility] Narrative* Problem Noted [...] of this encounter (statuses as of 10/14/2023) [facility] of Past illness Narrative* Problem Noted [...] of this encounter (statuses as of 10/17/2023) [facility] of Past illness Narrative* Problem Noted [...] of this encounter (statuses as of 10/17/2023) [facility] of Past illness Narrative* Problem Noted [...] of this encounter (statuses as of 10/17/2023) [facility]vas [facility] September 05, 2022 7:07am Note Date/Time September 05, 2022 7:07am [facility] Medical Records Department [address] [facility] [address] Progress Note - Cardiology 09/05/22705 MR#: [id number] Acct: [id number] Name: NAZARIO HUTTON Rep #:[id number] : 1950 71 From: Lukas Cuevas MD PCP: Dr. Valeriano Beasley MD Status:ADM IN Location: [place] [address] Subjective Subjective Patient seen and evaluated. Appears [...] 23:59 23:59 23:59 Intake Total 3010 / 0 6464.56 / 6464.56 784.17 / 784.17 Balance [...] 70.3 H, Lymph % (Auto) 12.1 L, Stone % (Auto) 11.5 H, Eos % (Auto) [...] 70.3 H, Lymph % (Auto) 12.1 L, Stone % (Auto) 11.5 H, Eos % (Auto) [...] Cosigner Signature (if applicable): CC: ~ Signed [facility] Work Phone: 1(969) 684-380602-12-[address] [facility] September 04, 2022 4:15pm Note Date/Time September 04, 2022 2:24pm [facility] Medical Records Department [address] [place] [address] Progress Note - Hospitalist 09/04/22 1419 MR#: [id number] Acct: [id number] Name: NAZARIO HUTTON Rep #:[id number] : 1950 71 From: Melissa Corbin MD PCP: Dr. Valeriano Beasley MD Status:ADM IN Location: [place] [address] 1 Reason for Visit Reason for Visit: [...] H 18 95/61 100 Room Air 2 02/12/23 13:34 09/04/22 13:34 09/04/22 13:34 09/04/22 13:34 [...] 78.2 H, Lymph % (Auto) 9.1 L, Stone % (Auto) 9.7, Eos % (Auto) 2.2, [...] 70.3 H, Lymph % (Auto) 12.1 L, Stone % (Auto) 11.5 H, Eos % (Auto) [...] mild segmental systolic dysfunction. Records requested from [facility] * cardiology on board * for cardiac [...] prophylaxis; SCDs. Charges/Coding Visit Charges Inpatient E&M: 19555 Subs Hosp L3 09/04/22 1610 <Electronically signed by Melissa Corbin MD> Cosigner Signature (if applicable): CC: ~ Signed [facility] Work Phone: 1(544) 277-911502-12-[address] [facility] September 04, 2022 4:14pm Note Date/Time September 03, 2022 3:04pm [facility] Medical Records Department [address] [place] [address] Progress Note - Hospitalist 09/03/22 1500 MR#: [id number] Acct: [id number] Name: NAZARIO HUTTON Rep #:[id number] : 1950 71 From: Melissa Corbin MD PCP: Dr. Valeriano Beasley MD Status:ADM IN Location: [place] [address]- Reason for Visit Reason for Visit: Diagnoses [...] H, RDW Coeff of Dorie 13.4, Plt Ipihu038, MPV 10.7, Immature Gran % (Auto) 0.600, Neut % (Auto) 74.7 H, Lymph % (Auto) 11.7 L, Stone % (Auto) 11.1 H, Eos % (Auto) 1.6, Baso % (Auto) 0.3, Absolute Neuts (auto) 7.2, Absolute Lymphs (auto) 1.13, Nucleated RBC % 0.2 09/03/22 07:10: Sodium 142, Potassium 3.6, Chloride 112 H, Carbon Dioxide 24.0, Anion Gap 6, BUN 14, Creatinine 0.86, Estim Creat Clear Calc 81.35, Est GFR (MDRD) Af Amer 112, Est GFR (MDRD) Non-Af 93, BUN/Creatinine Ratio 16.2, Fqcggxa71, Calcium 8.0 L, Total Bilirubin 0.70, AST [...] segmental systolic dysfunction. Will request records from [facility] * cycle troponins * consult cardiology. * [...] prophylaxis; SCDs. Charges/Coding Visit Charges Inpatient E&M: 64966 Subs Hosp L3 09/04/22 1614 <Electronically signed by Melissa Corbin MD> Cosigner Signature (if applicable): CC: ~ Signed [facility] Work Phone: 1(481) 663-582202-12-2023 Procedure [facility] 09-04-2022 Procedure [facility]02-12-[address] [facility]-12-2023 Procedure [facility] 09-04-2022 Progress note Author Ahmet Friend [facility] September 04, 2022 10:36am Note Date/Time September 04, 2022 10:36am [facility] Medical Records Department [facility] [place] [address] Progress Note 09/04/22 1033 MR#: [id number] Acct: [id number] Name: NAZARIO HUTTON Rep #:[id number] : 1950 71 From: Ahmet Friend DO PCP: Dr. Valeriano Beasley MD Status:ADM IN Location: [place] [address] Subjective Subjective Patient underwent a colonoscopy for [...] 78.2 H, Lymph % (Auto) 9.1 L, Stone % (Auto) 9.7, Eos % (Auto) 2.2, [...] Referring Physician: Valeriano Beasley Performed By: Elvira James, JULISA Physical Exam Const alert, oriented x3 and [...] and followhemoglobin. Charges/Coding Visit Charges Inpatient E&M: 45287 Subs Hosp L2 09/04/22 1036 <Electronically signed by Ahmet Chacon DO> Ahmet Chacon DO Cosigner Signature (if applicable): CC: ~ Signed [facility] Work Phone: 1(843) 205-267802-12-[address]vas [facility] September 04, 2022 9:39am Note Date/Time September 04, 2022 9:35am [facility] Medical Records Department [address] [place] [address] Consultation - Cardiology 09/04/22 0930 MR#: [id number] Acct: [id number] Name: NAZARIO HUTTON Rep #:[id number] : 1950 71 From: Lukas Cuevas MD PCP: Dr. Valeriano Beasley MD Status:ADM IN Location: [place] [address] Assessment & Plan Assessment/Plan (1) NSTEMI (non-ST [...] infarction in November 2021 was taken to [facility] and underwent stenting of one vessel. He [...] rhythm with a left bundle branch block. [facility] Medical History Anxiety Atherosclerotic heart disease of grayling coronary artery without angina pectoris Chest pain [...] 78.2 H, Lymph % (Auto) 9.1 L, Stone % (Auto) 9.7, Eos % (Auto) 2.2, [...] 78.2 H, Lymph % (Auto) 9.1 L, Stone % (Auto) 9.7, Eos % (Auto) 2.2, [...] Cuevas MD; Dr. Valeriano Beasley MD~ Signed [facility] Work Phone: 1(838) 393-250902-11-2023 Procedure [facility] 09-03-2022 Procedure [facility]02-10-2023 History and physical note Author Dr. Ramos [facility] September 02, 2022 6:26pm Note Date/Time September 02, 2022 2:53pm [facility] Medical Records Department [address] [place] [address] H&P Exam - Hospitalist 09/02/22 1434 MR#: [id number] Acct: [id number] Name: NAZARIO HUTTON Rep #:[id number] : 1950 71 From: Jael Ramos MD PCP: Dr. Valeriano Beasley MD Status:ADM IN Location: [place] [address] HPI - General General Date of Admission: 09/02/22 Date of Service: 09/02/22 Chief Complaint: Lightheadedness, dizziness, bloody diarrhea. HPI Narrative The patient is a 71 y/o M w/ PMHx: EtOH abuse (6 pack beer daily x 1 yr since passing of his ) with concurrent untreated Depression, HTN, HLD, CAD s/p PCIx 3 12/2021 of note, Gout who presents to the [facility] ED on 09/02/22 with history of [...] as IV cipro and IV flagyl. From [facility] last noted baseline labs 04/14/22 14.4, 44.2, macrocytic, 04/14/22 BUN/Cr 10/0.68. [facility] Medical History Anxiety Atherosclerotic heart disease of grayling coronary artery without angina pectoris Chest pain [...] 86.3 H, Lymph % (Auto) 4.3 L, Stone % (Auto) 8.6, Eos % (Auto) 0.0, [...] of note, Gout who presents to the [facility] ED on 09/02/22 with history of [...] 76 minutes. Charges/Coding Visit Charges Inpatient E&M: 89487 Init Hosp L3 Procedures Hospitalists Procedures: 56936 Advncd Care Plan 30 Min 09/02/22 1826 <Electronically signed by Jael Ramos MD> Cosigner Signature (if applicable): CC: Dr. Jael Ramos MD; Dr. Valeriano Beasley MD~ Signed [facility] Work Phone: 1(224) 380-927402-10-2023 Consult note Author Ahmet Chacon [facility] September 02, 2022 5:20pm Note Date/Time September 02, 2022 5:20pm [facility] Medical Records Department [address] [place] [address] Consultation - GI 09/02/22 1716 MR#: [id number] Acct: [id number] Name: NAZARIO HUTTON Rep #:[id number] : 1950 71 From: Ahmet Chacon DO PCP: Dr. Valeriano Beasley MD Status:ADM IN Location: [place] [address] HPI Consult Data Date of Consult: 09/02/22 [...] pain, swelling or discoloration.? He denies vomiting. [facility] Medical History (Updated 09/02/22 @ 15:42 by Jeanette Romero) Anxiety Atherosclerotic heart disease of grayling coronary artery without angina pectoris Chest pain [...] 86.3 H, Lymph % (Auto) 4.3 L, Stone % (Auto) 8.6, Eos % (Auto) 0.0, [...] of 3. Charges/Coding Visit Charges Inpatient E&M: 11839 Init Hosp L2 09/02/22 1720 <Electronically signed by Ahmet Friend DO> Cosigner Signature (if applicable): CC: Dr. Valeriano Beasley MD~ Signed [facility] Work Phone: 1(880) 874-441102-10-[address]in [facility] September 02, 2022 2:40pm Note Date/Time September 02, 2022 12:26pm [facility] Medical Records Department [address] [place] [address] Emergency Department Summary 09/02/22 MR#: [id number] Acct: [id number] Name: NAZARIO HUTTON Rep #:[id number] : 1950 71 From: Marino Holguin MD PCP: Dr. Valeriano Beasley MD Status:REG ER Location: ED HPI History of Present Illness Chief Complaint: Shortness of Breath Detail of Chief Complaint: Shortness of breath, generalized weakness, lightheadedness, thirst and diar Informant: patient and family Onset/Context/Timing Onset: Days (Onset Monday, August 31) Context: Sudden Onset Timing: Intermittent [...] Prior similar symptoms: No Recent Illness/Hospitalization: No PFSH PFS Medical History Atherosclerotic heart disease of grayling coronary artery without angina pectoris Coronary artery [...] PO DAILY 03/25/22 [History Last Taken Unknown] lovkwcbyC04-iuzu oil-omega 3-vit E 50 mg-550 mg-300 mg-30 [...] Stool was obtained for enteric pathogens. Using Spring[employer] to compare laboratory results. Patient's had a [...] Jael Ramos. She will admit patient to [facility], full admission. She will contact Dr. Ines regarding patient. Discussed CAT scan. She was [...] 86.3 H Lymph % (Auto) 4.3 L Stone % (Auto) 8.6 Eos % (Auto) 0.0 [...] of hypertension Disposition Disposition: Acute Care Hospital [facility] What to do if you have Problems For any increased pain, shortness of breath, bleeding, nausea or vomiting, chestpain, or any unexpected problems, contact your Primary Care Provider. Call [employer] [facility] ([phone]) or report to the closest Emergency Room. Call 911 if necessary. 09/02/22 9163 <Electronically signed by Marino Holguin MD> Cosigner Signature (if applicable): CC: Dr. Valeriano Beasley MD ~ Signed [facility] Work Phone: 1(565) 442-915709-26-2022 Instructions* Patient Instructions* Valeriano Beasley MD - 04/18/2022 3:14 PM EDT Consider getting the shingrix vaccine for the prevention of shingles from a local pharmacy Please get labs done on or after 10/07/2022 prior to your next visit. documented in this encounterK[facility]09-26-2022 History of Present illness Narrative* Valeriano Beasley [...] He is currently doing cardiac rehab at [facility] 3 days a week. 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 Valeriano Beasley MD documented in this encounterK[facility] Health09-20-2022 Miscellaneous Notes* Telephone Encounter - Zenobia Monroy - 04/12/2022 10:56 AM EDT Patient is wanting to have labs placed prior to seeing Dr. Beasley. Please advise patient via mychart when labs are placed or if he needs to wait until after the appointment. Thank you, Zenobia Monroy documented in this encounterK[facility] Health07-07-2022 Hospital Discharge instructions Patient Education 01/27/2022 12:26:05 [...] 06/26/2013 Document Reviewed: 07/11/2014 ExitCare Patient Information 2014 [employer]. This information is not intended to replace [...] until you are awake and alert. Take zzxh-skz-brwxucy and prescription medicines only as told by [...] 04/30/2014 Document Revised: 06/22/2018 Document Reviewed: 10/29/2016 [employer]apps Patient Education 2020 [employer] Follow Up Care 01/17/2022 13:12:32 With:Cardiac Rehabilitation Address: [address] [place] [address]- When: Unknown Comments:Cardiac Rehab will call you for an appointment in 1-2 weeks.Information given. Please call us with any questions. [phone] With:VALERIANO BEASLEY Address: [address] [place] [address]- [place] (1) When: Unknown With:FRANKLIN VAUGHN MD Address: [address] [facility] [address] [place] [address]- When:03/11/2022 13:30:00 [facility] 07-07-2022 Summary of episode note Discharge Instructions Thank you for allowing [facility] to assist you with your healthcare needs. The following is importantdischarge information regarding your hospital visit. Your Care Team VALERIANO BEASLEY MD What to do next Scheduled Follow-Up Appointments Appointment Type When Where Contact [facility] Follow Up 03/11/2022 01:30 PM EDT [facility] Follow Up Appointments Follow Up with FRANKLIN VAUGHN MD When 03/11/2022 01:30 PM EDT Where: [address] [facility] [address] [place] [address]- Follow Up with Cardiac Rehabilitation When Why: Cardiac Rehab will call you for an appointment in 1-2 weeks.Information given. Please call us with any questions. [phone] Where: [address] [place] [address]- Follow Up with VALERIANO BEASLEY When In 0 days Where: [address] [place] [address]- [place] (1) The Following Activity and Diet Have [...] Document Reviewed: 07/11/2014 ExitCare Patient Information 2015 [employer]. This information is not intended to replace [...] until you are awake and alert. Take zkcb-oyx-useqxoy and prescription medicines only as told by [...] 04/30/2014 Document Revised: 06/22/2018 Document Reviewed: 10/29/2016 [employer]apps Patient Education 2020 [employer] Additional Information VACCINATE! IT SAVES LIVES! Members of the community who have not yet received the COVID-19 vaccine and would like to receive it can visit one of [facility] vaccine clinics. There are many vaccine clinic locations within the [facility]. For locations and available times, please visit [email or web address]/. It is important to note that some COVID mobile vaccine clinics are held outdoors and may be canceled in rainy or stormy conditions. To learn more about pediatric vaccinations (ages 5-11), we invite you to visit the [facility] webpage. [email or web address]/[email or web address]-Ptnne-Mhezaedhclr-Cjgcknhogg-Mygmx-Eyw stions.htmlTo learn more about the COVID-19 vaccine, we invite you to visit the [facility] website for a list of frequently asked questions. [email or web address] _[email or web address]-Questions.pdf [facility] Technologies[facility] Patient Portal Access Instructions: Stay connected with your healthcare team and access your personal medical information anytime with the [facility] Patient Portal.If you would like a full copy of your medical records, please contact the [facility] Medical Records Department, Monday through Monday between 8a.m. and 4:30p.m. Please follow the directions below to access the portal: 1.Access the email account you provided upon registration to the [facility].2.Look for an invitation email from [facility].3.Open the email and access the invitation link: Accept Invitation to [facility]4.Fill in the required shaikh to create your account. Sign into [email or web address] with your username and password that you [...] you will allow to register on the [facility] Patient Portal for access to your information. You can also access the [facility] Patient Portal on the [employer] cristopher. Simply click on Health Records under [facility] and then click on the [facility] logo. [...] Call your local pharmacy or go to [email or web address] to find one close to you.3.Make use of household items: Use cat litter or old coffee grounds to dispose medications if other options arenot available. Mix your drugs with these household products, seal them in an airtight container andthrow it into the garbage. Call [facility]: [phone] to be sure your drugs can be [...] been reviewed and explained to me and I,NAZARIO HUTTON understand my current condition and have read and understand these discharge instructions. I have received a written copy of the plan/instructions. If I have questions, I am aware that I should contact my doctor. Patient/Detective Private Eye Signature: Date/Time: Relationship to Patient: Witness Name/Signature: Date/Time: [facility] [id number] Miscellaneous Notes* Telephone Encounter - Randa Scott - 12/31/2021 4:26 PM EDT INN documented in this encounterK[facility] Health05-12-2022 Miscellaneous Notes* Telephone Encounter - Valeriano Beasley MD - 12/02/2021 5:26 PM EDT Noted. * Telephone Encounter - Ganesh White MA - 12/02/2021 4:59 PM EDT Contacted [facility] requested hospital documentation. Ganesh White MA * Telephone Encounter - Nara Yates RN - 12/02/2021 4:18 PM EDT Patient returned call. He was sent by [employer] to [facility] from work then to [facility] on Wednesday 11/29. On arrival to [facility] he went directly to laboratory supervisor for stent to RCA. Hewas discharged home on 12/01. He has an appointment with a senior embedded software engineer in [place] on 12/28. He was discharged on Brilinta [...] Cardiology? Ganesh White MA' [facility] Dis[facility] Patient Education 12/01/2021 12:31:14 Hypertension, Adult, Wldf-dr-Cyzq Hypertension, Adult Hypertension is another name for [...] your doctor. This is important. Medicines Take xoel-pop-fkfsrun and prescription medicines only as told by [...] 12/26/2008 Document Revised: 03/20/2019 Document Reviewed: 03/20/2019 [email or web address] Patient Education 2020 [employer]. 12/01/2021 12:31:01 Heart Attack, Rmxi-dr-Dhbp Heart Attack A heart attack occurs when [...] Follow these instructions at home: Medicines Take tnje-tce-rvnonzh and prescription medicines only as told by [...] 01/08/2013 Document Revised: 10/21/2019 Document Reviewed: 10/21/2019 [email or web address] Patient Education 2020 [employer]. 12/01/2021 12:30:46 Atrial Fibrillation, Uggt-au-Howc Atrial Fibrillation Atrial fibrillation is a condition [...] 04/18/2009 Document Revised: 11/04/2013 Document Reviewed: 08/20/2013 ExitYour Office Agent Patient Information 2015 [employer]. This information is not intended to replace advicegiven to you by your health care provider. Make sure you discuss any questions you have with your health care provider. Follow Up Care 11/29/2021 15:20:14 With:TESSA GUZMAN MD, Thoracic Service, Vascular Service Address: [address] [place] [address] [address] [facility] [place] [address] [phone] When:12/28/2021 15:00:00 With:CHRISTINE EDWARDS MD Address: [address] [place] [address] [address] [facility] [place] [address]- [phone] When:12/28/2021 11:30:00 Comments:THIS APPOINTMENT WILL BE WITH PONCHO BYRNE With:Cardiac Rehabilitation Address: [address] [place] [phone]- When: Unknown Comments:Cardiac Rehab will call you for an appointment in 1-2 weeks.Information given. Please call us with any questions. [phone] With:VALERIANO BEASLEY Address: [address] [place] [address]- Business (1) When:1-2 days [facility] 05-09-2022 Evaluation + Plan noteExtracted from: Title:History [...] down the stairs to evaluate patient in Card Fixer for future outpatient bypass after this initial [...] of this technology. Dr. Lisa Reeves Interventional Cellar Worker, PGY 7 Pager: [phone] Please call with any questions or concerns Attending for this patient encounter is Dr. Nicolas Future Appointments Appointment Date:12/28/2021 11:30:00 AM Scheduled Provider:CATY MACARIO Location:[facility] Appointment Type:CV OV Hospital Follow Up Appointment Date:12/28/2021 03:00:00 PM Scheduled Provider:TESSA GUZMAN MD Location:CTS CAN Appointment Type:CTS OV [facility] 01-09-2019 History of Past illness Narrative* Problem Noted Date Resolved Date High serum parathyroid hormone (PTH) 08/01/2018 08/12/2019 Elevated PTHrP level 07/21/2018 08/12/2019 Impaired fasting glucose 09/03/2017 019 Abrasion of left ear canal 08/28/201708/12 Stool guaiac positive 01/19/2016 08/01/2018 Hyperuricemia 10/30/2014 08/12/2019 Neurodermatitis 07/12/2011 08/01/2018 documented as of this encounter (statuses as of 12/02/2021) [facility] of [facility] illness Narrative* Problem Noted Date Resolved Date High serum parathyroid hormone (PTH) 08/01/2018 08/12/2019 Elevated PTHrP level 07/21/2018 08/12/2019 Impaired fasting glucose 09/03/2017 019 Abrasion of left ear canal 08/28/201708/12 Stool guaiac positive 01/19/2016 08/01/2018 Hyperuricemia 10/30/2014 08/12/2019 Neurodermatitis 07/12/2011 08/01/2018 documented as of this encounter (statuses as of 12/31/2021) [facility] of [facility] illness Narrative* Problem Noted Date Resolved Date High serum parathyroid hormone (PTH) 08/01/2018 08/12/2019 Elevated PTHrP level 07/21/2018 08/12/2019 Impaired fasting glucose 09/03/2017 019 Abrasion of left ear canal 08/28/201708/12 Stool guaiac positive 01/19/2016 08/01/2018 Hyperuricemia 10/30/2014 08/12/2019 Neurodermatitis 07/12/2011 08/01/2018 documented as of this encounter (statuses as of 01/02/2022) [facility] Narrative* Problem Noted Date Resolved Date High serum parathyroid hormone (PTH) 08/01/2018 08/12/2019 Elevated PTHrP level 07/21/2018 08/12/2019 Impaired fasting glucose 09/03/2017 019 Abrasion of left ear canal 08/28/201708/12 Stool guaiac positive 01/19/2016 08/01/2018 Hyperuricemia 10/30/2014 08/12/2019 Neurodermatitis 07/12/2011 08/01/2018 documented as of this encounter (statuses as of 04/12/2022) [facility] Narrative* Problem Noted Date Resolved Date High serum parathyroid hormone (PTH) 08/01/2018 08/12/2019 Elevated PTHrP level 07/21/2018 08/12/2019 Impaired fasting glucose 09/03/2017 019 Abrasion of left ear canal 08/28/201708/12 Stool guaiac positive 01/19/2016 08/01/2018 Hyperuricemia 10/30/2014 08/12/2019 Neurodermatitis 07/12/2011 08/01/2018 documented as of this encounter (statuses as of 04/19/2022) [facility] Narrative* Problem Noted Date Resolved Date High serum parathyroid hormone (PTH) 08/01/2018 08/12/2019 Elevated PTHrP level 07/21/2018 08/12/2019 Impaired fasting glucose 09/03/2017 019 Abrasion of left ear canal 08/28/201708/12 Stool guaiac positive 01/19/2016 08/01/2018 Hyperuricemia 10/30/2014 08/12/2019 Neurodermatitis 07/12/2011 08/01/2018 documented as of this encounter (statuses as of 09/06/2022) [facility] Narrative* Problem Noted Date Resolved Date High serum parathyroid hormone (PTH) 08/01/2018 08/12/2019 Elevated PTHrP level 07/21/2018 08/12/2019 Impaired fasting glucose 09/03/2017 019 Abrasion of left ear canal 08/28/201708/12 Stool guaiac positive 01/19/2016 08/01/2018 Hyperuricemia 10/30/2014 08/12/2019 Neurodermatitis 07/12/2011 08/01/2018 documented as of this encounter (statuses as of 09/06/2022) [facility] Narrative* Problem Noted Date Resolved Date High serum parathyroid hormone (PTH) 08/01/2018 08/12/2019 Elevated PTHrP level 07/21/2018 08/12/2019 Impaired fasting glucose 09/03/2017 019 Abrasion of left ear canal 08/28/201708/12 Stool guaiac positive 01/19/2016 08/01/2018 Hyperuricemia 10/30/2014 08/12/2019 Neurodermatitis 07/12/2011 08/01/2018 documented as of this encounter (statuses as of 09/12/2022) [facility] Narrative* Problem Noted Date Resolved Date High serum parathyroid hormone (PTH) 08/01/2018 08/12/2019 Elevated PTHrP level 07/21/2018 08/12/2019 Impaired fasting glucose 09/03/2017 019 Abrasion of left ear canal 08/28/201708/12 Stool guaiac positive 01/19/2016 08/01/2018 Hyperuricemia 10/30/2014 08/12/2019 Neurodermatitis 07/12/2011 08/01/2018 documented as of this encounter (statuses as of 09/16/2022) [facility] Narrative* Problem Noted Date Resolved Date High serum parathyroid hormone (PTH) 08/01/2018 08/12/2019 Elevated PTHrP level 07/21/2018 08/12/2019 Impaired fasting glucose 09/03/2017 019 Abrasion of left ear canal 08/28/201708/12 Stool guaiac positive 01/19/2016 08/01/2018 Hyperuricemia 10/30/2014 08/12/2019 Neurodermatitis 07/12/2011 08/01/2018 documented as of this encounter (statuses as of 09/16/2022) [facility] Narrative* Problem Noted Date Resolved Date High serum parathyroid hormone (PTH) 08/01/2018 08/12/2019 Elevated PTHrP level 07/21/2018 08/12/2019 Impaired fasting glucose 09/03/2017 019 Abrasion of left ear canal 08/28/201708/12 Stool guaiac positive 01/19/2016 08/01/2018 Hyperuricemia 10/30/2014 08/12/2019 Neurodermatitis 07/12/2011 08/01/2018 documented as of this encounter (statuses as of 10/12/2022) [facility] Narrative* Problem Noted Date Resolved Date High serum parathyroid hormone (PTH) 08/01/2018 08/12/2019 Elevated PTHrP level 07/21/2018 08/12/2019 Impaired fasting glucose 09/03/2017 019 Abrasion of left ear canal 08/28/201708/12 Stool guaiac positive 01/19/2016 08/01/2018 Hyperuricemia 10/30/2014 08/12/2019 Neurodermatitis 07/12/2011 08/01/2018 documented as of this encounter (statuses as of 10/13/2022) [facility] Narrative* Problem Noted Date Resolved Date High serum parathyroid hormone (PTH) 08/01/2018 08/12/2019 Elevated PTHrP level 07/21/2018 08/12/2019 Impaired fasting glucose 09/03/2017 019 Abrasion of left ear canal 08/28/201708/12 Stool guaiac positive 01/19/2016 08/01/2018 Hyperuricemia 10/30/2014 08/12/2019 Neurodermatitis 07/12/2011 08/01/2018 documented as of this encounter (statuses as of 10/21/2022) [facility] Narrative* Problem Noted Date Resolved Date High serum parathyroid hormone (PTH) 08/01/2018 08/12/2019 Elevated PTHrP level 07/21/2018 08/12/2019 Impaired fasting glucose 09/03/2017 019 Abrasion of left ear canal 08/28/201708/12 Stool guaiac positive 01/19/2016 08/01/2018 Hyperuricemia 10/30/2014 08/12/2019 Neurodermatitis 07/12/2011 08/01/2018 documented as of this encounter (statuses as of 11/11/2022) [facility] Narrative* Problem Noted Date Resolved Date High serum parathyroid hormone (PTH) 08/01/2018 08/12/2019 Elevated PTHrP level 07/21/2018 08/12/2019 Impaired fasting glucose 09/03/2017 019 Abrasion of left ear canal 08/28/201708/12 Stool guaiac positive 01/19/2016 08/01/2018 Hyperuricemia 10/30/2014 08/12/2019 Neurodermatitis 07/12/2011 08/01/2018 documented as of this encounter (statuses as of 11/15/2022) [facility] Narrative* Problem Noted Date Resolved Date High serum parathyroid hormone (PTH) 08/01/2018 08/12/2019 Elevated PTHrP level 07/21/2018 08/12/2019 Impaired fasting glucose 09/03/2017 019 Abrasion of left ear canal 08/28/201708/12 Stool guaiac positive 01/19/2016 08/01/2018 Hyperuricemia 10/30/2014 08/12/2019 Neurodermatitis 07/12/2011 08/01/2018 documented as of this encounter (statuses as of 12/20/2022) [facility] Narrative* Problem Noted Date Resolved Date High serum parathyroid hormone (PTH) 08/01/2018 08/12/2019 Elevated PTHrP level 07/21/2018 08/12/2019 Impaired fasting glucose 09/03/2017 019 Abrasion of left ear canal 08/28/201708/12 Stool guaiac positive 01/19/2016 08/01/2018 Hyperuricemia 10/30/2014 08/12/2019 Neurodermatitis 07/12/2011 08/01/2018 documented as of this encounter (statuses as of 01/06/2023) [facility] No data available for this section [facility] Evaluation + Plan note Future Appointments Appointment Date:03/11/2022 01:30:00 PM Scheduled Provider: Location:[facility] Appointment Type:CV Hospital Follow Up [facility] Evaluation note* Diagnosis Myocardial infarction involving left anterior descending (LAD) coronary artery, unspecified [place] type (HCC)- Primary [facility] this encounter [facility] noteNo assessment information availableWAdena [facility] Work Phone: Evaluation note* Diagnosis Coronary artery disease due to lipid rich plaque- Primary Essential hypertension, benign Mixed hyperlipidemia Gout without tophus Low vitamin D level Elevated PSA Elevated prostate specific antigen (PSA) Medication management Encounter for long-term (current) use of other medications [facility] Medicare annual wellness visit, [...] specified counseling [facility] Diagnosis NSTEMI (non-ST elevated myocardial infarction) (HCC) Acute myocardial infarction, subendocardial infarction, episode of care unspecified Diverticulosis Diverticulosis of colon (without mention of hemorrhage) [facility] Diagnosis Onset Date Resolution Status Acute blood loss anemia acut e BC (acute kidney injury) ac [place] Bloody diarrhea acute Chest pain acute History of hypertension acut e Leukocytosis acute NSTEMI (non-ST elevated myocardial infarction) acute 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 Alcohol abuse Alcohol abuse, unspecified H/O non-ST elevation myocardial infarction (NSTEMI) Old myocardial infarction Mixed hyperlipidemia [facility] Diagnosis Essential hypertension, benign- Primary Mixed [...] without tophus [facility] Diagnosis Onset Date Resolution Status BC (acute kidney injury) ac [place] Leukocytosis acute NSTEMI (non-ST elevated myocardial infarction) acute Atherosclerotic heart diseas e of grayling coronary artery without angina pectoris acute Essential hypertension acute Hyperlipidemia acute [facility] Work Phone: Evaluation note* Diagnosis Medicare [...] ear wax, right [facility] Essential hypertension, benign- Primary Low serum vitamin B12 Anxiety Anxiety state, unspecified [facility] Diagnosis Other specified disorders of kidney and ureter- Primary Essential hypertension, benign Kidney lesion Unspecified disorder of kidney and ureter [facility] Diagnosis Other specified disorders of kidney and ureter Kidney lesion Unspecified disorder of kidney and ureter [facility] Diagnosis Onset Date Resolution Status Neuropathy acute Other intervertebral disc degeneration, lumbar region acute Atherosclerotic heart diseas e of grayling coronary artery without angina pectoris acute Dizziness acute Essential hypertension acute Hyperlipidemia acute SOB (shortness of breath) [facility] Work Phone: Evaluation note* Diagnosis Coronary artery disease due to lipid rich plaque- Primary Essential hypertension, benign Mixed hyperlipidemia Kidney lesion Unspecified disorder of kidney and ureter Low serum vitamin B12 Gout without tophus Alcohol abuse Alcohol abuse, unspecified Elevated PSA Elevated prostate specific antigen (PSA) [facility] Diagnosis Renal stones- Primary Calculus of kidney Hydronephrosis, unspecified hydronephrosis type [facility] Diagnosis Balance problems- Primary Other symptoms involving nervous and musculoskeletal systems Abnormality of gait Numbness Disturbance of skin sensation Neuropathy Mononeuritis of unspecified site Other symptoms and signs involving the nervous system History of CAD (coronary artery disease) History of coronary artery stent placement Postsurgical percutaneous transluminal coronary angioplasty status [facility] Diagnosis Other symptoms and signs involving the nervous system [facility] Diagnosis Other symptoms and signs involving the nervous system [facility] Diagnosis Occlusion and stenosis of unspecified carotid artery- Primary Nephropathy screen Screening for nephropathy Stenosis of carotid artery, unspecified laterality [facility]* Diagnosis Occlusion and stenosis of unspecified carotid artery documented [facility]* Diagnosis Tongue swelling- Primary Swelling, mass, or lump in head and neck documented [facility]* Diagnosis Essential hypertension, benign- Primary [facility]* Diagnosis Medicare annual wellness visit, subsequent- Primary Routine general medical examination at a health care facility Encounter for immunization Need for other specified prophylactic vaccination against single bacterial disease Essential hypertension, benign Advance directive discussed with patient Other specified counseling Living will in place Relief Pilot's nodules Localized superficial swelling, mass, or lump [...] specific antigen (PSA) [facility]* Diagnosis Liver fibrosis- Primary Cirrhosis of liver without mention of alcohol [facility]* Diagnosis Essential hypertension, benign- Primary [facility]* Diagnosis Alcoholic cirrhosis, unspecified whether ascites present (HCC)- Primary [facility]* Diagnosis Angioedema, subsequent encounter- Primary [facility]* Diagnosis Angioedema, subsequent encounter documented [facility]* Diagnosis Neuropathy, idiopathic- Primary Mononeuritis of unspecified site Abnormal SPEP Other nonspecific findings on examination of blood Positive GALLO (antinuclear antibody) Other and unspecified nonspecific immunological findings Abnormality of gait Numbness Disturbance of skin sensation documented [facility]* Diagnosis Abnormal SPEP- Primary Other nonspecific findings on examination of blood [facility]* Diagnosis Positive GALLO (antinuclear antibody)- Primary Other and unspecified nonspecific immunological findings Ds DNA antibody positive Other and unspecified nonspecific immunological findings Neuropathy Mononeuritis of unspecified site [facility]* Diagnosis Neuropathy - (NOS)- Primary [facility]* Diagnosis Monoclonal gammopathy- Primary Monoclonal paraproteinemia Hypercalcemia [facility]* Diagnosis Monoclonal gammopathy- Primary Monoclonal paraproteinemia Neuropathy - (NOS) documented [facility]* Diagnosis Monoclonal gammopathy Monoclonal paraproteinemia [facility]* Diagnosis Essential hypertension, benign- Primary [...] unspecified cardiovascular conditions [facility] encounter [facility]* Diagnosis Screening for abdominal aortic aneurysm Screening for other and unspecified cardiovascular conditions documented in this encounter [facility] note* Diagnosis Peripheral polyneuropathy- Primary Unspecified hereditary and idiopathic peripheral neuropathy Low vitamin B12 level Other B-complex deficiencies Drinks beer [facility]* Diagnosis Hospital discharge follow-up- Primary Other follow-up examination Essential hypertension, benign documented in this encounter [facility] note* Diagnosis Lower GI bleed- Primary Hemorrhage of gastrointestinal tract, unspecified Angiodysplasia of colon Angiodysplasia of intestine (without mention of hemorrhage) [facility] Author Flakita Florentino [facility] Note Date/Time December 27, 2024 2:52p [facility] Medical Records Department [address] [place] [address] H&P Exam - Hospitalist 12/27/24 1411 MR#: [id number] Acct: [id number] Name: NAZARIO HUTTON Rep #:[id number] : 1950 74 From: Flakita Florentino DO PCP: Dr. Valeriano Beasley MD Status:REG ER Location: ED HPI - General General Date of Admission: 12/27/24 Date of Service: 12/27/24 Chief Complaint: Tongue and lip swelling HPI Narrative NAZARIO HUTTON, is a 74 M who presented to the emergency department at [facility] on 12/27/2024 with tongue and lip [...] maintained on Solu-Medrol, H2 and H1 blockers. [facility] Medical History High serum parathyroid hormone (PTH) Heart murmur Elevated alkaline phosphatase level Elevated PSA Diverticulosis AVM (arteriovenous malformation) of colon Vitamin D deficiency Gout Alcohol abuse Essential hypertension Chest pain Anxiety Depression Myocardial infarct Chest pain Acute blood loss anemia Bloody diarrhea Coronary artery disease Atherosclerotic heart disease of grayling coronary artery without angina pectoris ST elevation [...] (Auto) 67.1, Lymph % (Auto) 9.8 L, Stone % (Auto) 11.2 H, Eos % (Auto) [...] Patient should follow-up as an outpatient with mid wife if has not already done so Chronic [...] Full code Charges/Coding Visit Charges Inpatient E&M: 73149 Init Hosp L2 12/27/24 1452 <Electronically signed by Flakita Florentino DO> Cosigner Signature (if applicable): CC: Dr. Valeriano Beasley MD; Dr. Flakita Florentino DO~ Signed [facility] Work Phone: Hospital Discharge instructions No data available for this section [facility] Hospital Discharge instructionsAdditional Instructions Advised to call GI office on 01/27/2025 to schedule outpatient colonoscopy with Dr. Chacon for lower GI bleed [facility]: [facility]: Note* FRANKLIN VAUGHN MD: SIGN, VERIFY Event Display: Percut Transluminal Coronary Angioplasty Authored Date: [id number] [facility] Progress note No data available for this section [facility] Progress note Author Dr. Crespo [facility] September 10, 2022 1:29pm Note Date/Time September 10, 2022 1:29pm [facility] Medical Records Department [address] [place] [address] Progress Note - Hospitalist 09/10/22 1328 MR#: [id number] Acct: [id number] Name: NAZARIO HUTTON Rep #:[id number] : 1950 71 From: Obdulio goyal MD PCP: Dr. Valeriano Beasley MD Status:ADM IN Location: [place] [address] Subjective Subjective This progress note is for [...] mild segmental systolic dysfunction. Records requested from [facility] * Appreciate cardiology's assistance, will restart Plavix by itself in about a week #Acute alcohol withdrawal * patient has a history of heavy alcohol use, and drinks 4-6 drinks daily. * alcohol withdrawal protocol with ativan. * on folic acid, thiamine and multivitamin. DVT: SCDs Charges/Coding Visit Charges Inpatient E&M: 16479 Subs Hosp L2 09/10/22 4692 <Electronically signed by Obdulio Crespo MD> Cosigner Signature (if applicable): CC: ~ Signed [facility] Work Phone: Reason for referral (narrative)No reason for referral information availableWAdena F[facility] Work Phone: Reclbv for visit Narrative* Diagnostic Procedure Only (Routine) - Closed Specialty Diagnoses / Procedures Referred By Contac t Referred To Contact XR IMAGING Diagnoses Monoclonal gammopathy Procedures XR BONE SURVEY ROUTINE RADIOLOGIC EXAMINATION OSSEOUS SURVEY COMPL Stephanie Roy, DO [address] [place] [address] Phone: tel: fax: XR IMAGING [place] [address] Referral ID Status Reason Start Date Expiration Date V isits Requested Visits Authorized [id number] Closed Auto-Generate d Referral 10/23/2024 11/22/2025 1 1 [facility] Reason for Referral Specialty Diagnoses / Procedures Referred By Contac t Referred To Contact Rheumatology Diagnoses Positive GALLO (antinuclear antibody) Procedures CONSULT TO RHEUM/IMMUN DISEASE OFFICE/OUTPATIENT [facility] 60 MINUTES Patria Khanna Jr., MD [facility] [place] [address] Referral ID Status Reason Start Date Expiration Date Visits Requested Visits Authorized [id number] Authorized PCP Requested Referral 08/30/2024 08/30/2025 1 1 Specialty Diagnoses / Procedures Referred By Contac t Referred To Contact Allergy Diagnoses Angioedema, subsequent encounter Procedures CONSULT TO ALLERGY/IMMUNOLOGY OFFICE/OUTPATIENT [facility] 60 MINUTES Valeriano Beasley MD [address] [place] [address] Referral ID Status Reason Start Date Expiration Date Visits Requested Visits Authorized [id number] Authorized PCP Requested Referral 07/31/2024 07/31/2025 1 1 Specialty Diagnoses / Procedures Referred By Contac t Referred To Contact Gastroenterology Diagnoses Liver fibrosis Procedures CONSULT TO GASTROENTEROLOGY OFFICE/OUTPATIENT [facility] 60 MINUTES Suzanna Dawson PA-C [address] [place] [address] Referral ID Status Reason Start Date Expiration Date Visits Requested Visits Authorized [id number] Authorized PCP Requested Referral 05/15/2025 1 1 Specialty Diagnoses / Procedures Referred By Contac t Referred To Contact Vascular Surgery Diagnoses Stenosis of carotid artery, unspecified laterality Procedures CONSULT TO VASCULAR SURGERY OFFICE/OUTPATIENT NEW HIGH MDM 60 MINUTES Patria Khanna Jr., MD [address] [facility] [address] [place] [address] Referral ID Status Reason Start Date Expiration Date Visits Requested Visits Authorized [id number] Authorized PCP Requested Referral 02/07/2024 02/06/2025 1 1 Specialty Diagnoses / Procedures Referred By Contac t Referred To Contact CT IMAGING Diagnoses Occlusion and stenosis of unspecified carotid artery Procedures CTA NECK W IVCON CT ANGIOGRAPHY NECK W/CONTRAST/NONCONTRAST Patria Khanna Jr., MD [address] [facility] [address] [place] [address] [place] [address] Referral ID Status Reason Start Date Expiration Date Visits Requested Visits Authorized [id number] New Request Auto-Generat ed Referral 02/07/2024 03/08/2025 1 1 Specialty Diagnoses / Procedures Referred By Contac t Referred To Contact CT IMAGING Diagnoses Occlusion and stenosis of unspecified carotid artery Procedures CTA HEAD W IVCON CT ANGIOGRAPHY HEAD W/CONTRAST/NONCONTRAST Patria Khanna Jr., MD [address] [address] [place] [address] Referral ID Status Reason Start Date Expiration Date Visits Requested Visits Authorized [id number] New Request Auto-Generat ed Referral 02/07/2024 03/08/2025 1 1 Specialty Diagnoses / Procedures Referred By Contac t Referred To Contact CT IMAGING Diagnoses Stenosis of carotid artery, unspecified laterality Procedures CTA NECK W IVCON CT ANGIOGRAPHY NECK W/CONTRAST/NONCONTRAST Patria Khanna Jr., MD [address] [facility] [address] [place] [address] [place] [address] Referral ID Status Reason Start Date Expiration Date Visits Requested Visits Authorized [id number] New Request Auto-Generat ed Referral 02/07/2024 03/08/2025 1 1 Specialty Diagnoses / Procedures Referred By Contac t Referred To Contact CT IMAGING Diagnoses Stenosis of carotid artery, unspecified laterality Procedures CTA HEAD W IVCON CT ANGIOGRAPHY HEAD W/CONTRAST/NONCONTRAST Patria Khanna Jr., MD [facility] [address] [place] [address] [place] [address] Referral ID Status Reason Start Date Expiration Date Visits Requested Visits Authorized [id number] New Request Auto-Generat ed Referral 02/07/2024 03/08/2025 1 1 Specialty Diagnoses / Procedures Referred By Contac t Referred To Contact MR IMAGING Diagnoses Other symptoms and signs involving the nervous system Procedures MRA CAROTID WO IVCON MRA, NECK; W/O CONTRAST Patria Khanna Jr., MD [facility] [address] [place] [address] [place] [address] Referral ID Status Reason Start Date Expiration Date Visits Requested Visits Authorized [id number] Authorized Auto-Generat ed Referral 01/01/2024 01/30/2025 1 1 Specialty Diagnoses / Procedures Referred By Contac t Referred To Contact MR IMAGING Diagnoses Other symptoms and signs involving the nervous system Procedures MRA BRAIN WO IVCON MRA, HEAD W/O CONTRAST Patria Khanna Jr., MD [facility] [address] [place] [address] [place] [address] Referral ID Status Reason Start Date Expiration Date Visits Requested Visits Authorized [id number] Authorized Auto-Generat ed Referral 01/01/2024 01/30/2025 1 1 Specialty Diagnoses / Procedures Referred By Contac t Referred To Contact MR IMAGING Diagnoses Other symptoms and signs involving the nervous system Procedures MRI BRAIN WO IVCON MRI BRAIN BRAIN STEM W/O CONTRAST MATERIAL Patria Khanna Jr., MD [facility] [address] [place] [address] [place] [address] Referral ID Status Reason Start Date Expiration Date Visits Requested Visits Authorized [id number] Authorized Auto-Generat ed Referral 01/01/2024 01/30/2025 1 1 Specialty Diagnoses / Procedures Referred By Contac t Referred To Contact Urology Diagnoses Renal stones Hydronephrosis, unspecified hydronephrosis type Procedures CONSULT TO UROLOGY OFFICE/OUTPATIENT [facility] 60 MINUTES Valeriano Beasley MD [address] [place] [address] Referral ID Status Reason Start Date Expiration Date Visits Requested Visits Authorized [id number] Authorized PCP Requested Referral 10/17/2023 08/29/2024 1 1 Specialty Diagnoses / Procedures Referred By Contac t Referred To Contact CT IMAGING Diagnoses Other specified disorders of kidney and ureter Kidney lesion Procedures CT KIDNEY WO/W IVCON CT ABDOMEN W & W/O CONTRAST Valeriano Beasley MD [address] [place] [address] [place] [address] Referral ID Status Reason Start Date Expiration Date Visits Requested Visits Authorized [id number] Authorized Auto-Generat ed Referral 08/21/2023 09/19/2024 1 1 Specialty Diagnoses / Procedures Referred By Contac t Referred To Contact Neurology Diagnoses Balance problems Atrophy of muscle of right shoulder Atrophy of muscle of other site Procedures CONSULT TO NEUROLOGY OFFICE/OUTPATIENT [facility] 60-74 MINUTES Valeriano Beasley MD [address] [place] [address] Referral ID Status Reason Start Date Expiration Date Visits Requested Visits Authorized [id number] Pending Review PCP Requested Referral 04/20/2023 04/19/2024 1 1 Specialty Diagnoses / Procedures Referred By Contac t Referred To Contact Cardiology Diagnoses Myocardial infarction involving left anterior descending (LAD) coronary artery, unspecified [place] type (HCC) Procedures CONSULT TO CARDIOLOGY OFFICE/OUTPATIENT [facility] 60-74 MINUTES Tessa Donato, [address] [address] Referral ID Status Reason Start Date Expiration Date Visits Requested Visits Authorized [id number] Pending Review PCP Requested Referral 01/01/2022 01/01/2023 [...] DIARRHEAL ILLNESS Amb Documentation ER FU S/P [facility] Reason for Visit BC (acute kidney in jury) Leukocytosis NSTEMI (non-ST elevated myocardial infarction) Atherosclerotic heart disease of grayling coronary artery without angina pectoris Essential hypertension Hyperlipidemia Chief Complaint Anesthesia of skin Anesthesia of skin Chief Complaint Anesthesia of skin Anesthesia of skin LUMBAR SPINE Xray room 3 9 M FU E ORDERS Reason for Visit Neuropathy Other intervertebral disc degeneration, 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 Dizziness Essential hypertension Hyperlipidemia SOB (shortness of breath) Chief Complaint LUMBAR SPINE Xray room 3 9 M FU E ORDERS Dizziness and giddiness Amb Documentation Reason for Visit Neuropathy Other intervertebral disc degeneration, 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 Dizziness Essential hypertension Hyperlipidemia SOB (shortness of breath) Chief Complaint Admit Date allegic reaction July [...] 2024 1:55pm Atherosclerotic heart diseas e of grayling coronary artery without angina pectoris November 05, [...] 2024 1:55pm Atherosclerotic heart diseas e of grayling coronary artery without angina pectoris November 05, [...] Admit Date Atherosclerotic heart diseas e of grayling coronary artery without angina pectoris November 05, [...] 2024 1:58p m Chief Complaint Admit Date CALCULUS OF URETER October 11, 2024 3:4 [...] FAILURE 2/2 ANGIOEDEMA December 30, 2024 8:54am LGIB WITH ABLA January 23, 2025 10:37 pm LGIB WITH ABLA January 24, 2025 7:47a m LGIB WITH ABLA January 25, 2025 9:26a m Reason for Visit Admit Date Atherosclerotic heart diseas e of grayling coronary artery without angina pectoris November 05, 2024 12:58pm Essential hypertension November 05, 2024 12:58pm Hyperlipidemia November 05, 2024 12: 58pm Acute respiratory failure December 27, 2024 1:58pm Angioedema December 27, 2024 1:58p m Eosinophilia December 27, 2024 1:58p m Hypotension due to drugs December 27, 2024 1:58pm Lymphopenia December 27, 2024 1:58p m Monocytosis December 27, 2024 1:58p m ABLA (acute blood loss anemia) January 23, 2025 10:37pm Acute cystitis without hematuria January 10:37pm Acute lower gastrointestinal bleeding Ju 2024 10:37pm Adverse drug reaction January 23, 2025 10: 37pm History of GI diverticular bleed January 10:37pm Overweight (BMI 25.0-29.9) January 23 10:37pm Chief Complaint Admit Date CALCULUS OF URETER October 11, 2024 3:4 [...] FAILURE 2/2 ANGIOEDEMA December 30, 2024 8:54am LGIB WITH ABLA January 23, 2025 10:37 pm LGIB WITH ABLA January 24, 2025 7:47a m LGIB WITH ABLA January 25, 2025 9:26a m [facility] January 29, 2025 10:49 am Reason for Visit Admit Date Atherosclerotic heart diseas e of grayling coronary artery without angina pectoris November 05, 2024 12:58pm Essential hypertension November 05, 2024 12:58pm Hyperlipidemia November 05, 2024 12: 58pm Acute respiratory failure December 27, 2024 1:58pm Angioedema December 27, 2024 1:58p m Eosinophilia December 27, 2024 1:58p m Hypotension due to drugs December 27, 2024 1:58pm Lymphopenia December 27, 2024 1:58p m Monocytosis December 27, 2024 1:58p m ABLA (acute blood loss anemia) January 23, 2025 10:37pm Acute cystitis without hematuria January 10:37pm Acute lower gastrointestinal bleeding Ju 2024 10:37pm Adverse drug reaction January 23, 2025 10: 37pm History of GI diverticular bleed January 10:37pm Overweight (BMI 25.0-29.9) January 23 10:37pm ABLA (acute blood loss anemia) January 29, 2025 10:49am History of GI diverticular bleed January 10:49am Chief Complaint Admit Date 6 M FU November 05, 2024 12: 58pm ACUTE RESPIRATORY FAILURE 2/2 ANGIOEDEMA December 27, 2024 1:58pm SWOLLEN TONGUE December 27, 2024 2:11p m ACUTE RESPIRATORY FAILURE 2/2 ANGIOEDEMA December 28, 2024 7:51am ACUTE RESPIRATORY FAILURE 2/2 ANGIOEDEMA December 29, 2024 7:18am ACUTE RESPIRATORY FAILURE 2/2 ANGIOEDEMA December 30, 2024 7:03am ACUTE RESPIRATORY FAILURE 2/2 ANGIOEDEMA December 30, 2024 8:54am LGIB WITH ABLA January 23, 2025 10:37 pm LGIB WITH ABLA January 24, 2025 7:47a m LGIB WITH ABLA January 25, 2025 9:26a m [facility] January 29, 2025 10:49 am EORDERS February 07, 2025 11:0 1am Reason for Visit Admit Date Atherosclerotic heart diseas e of grayling coronary artery without angina pectoris November 05, 2024 12:58pm Essential hypertension November 05, 2024 12:58pm Hyperlipidemia November 05, 2024 12: 58pm Acute respiratory failure December 27, 2024 1:58pm Angioedema December 27, 2024 1:58p m Eosinophilia December 27, 2024 1:58p m Hypotension due to drugs December 27, 2024 1:58pm Lymphopenia December 27, 2024 1:58p m Monocytosis December 27, 2024 1:58p m Acute cystitis without hematuria January 10:37pm Acute lower gastrointestinal bleeding Ju ly 2024 10:37pm Adverse drug reaction January 23, 2025 10: 37pm Overweight (BMI 25.0-29.9) January 23 10:37pm ABLA (acute blood loss anemia) January 23, 2025 10:37pm History of GI diverticular bleed January 10:37pm ABLA (acute blood loss anemia) January 29, 2025 10:49am History of GI diverticular bleed January 10:49am Chief Complaint Admit Date 6 M November 05, 2024 12: 58pm ACUTE RESPIRATORY FAILURE 2/2 ANGIOEDEMA December 27, 2024 1:58pm SWOLLEN TONGUE December 27, 2024 2:11p m ACUTE RESPIRATORY FAILURE 2/2 ANGIOEDEMA December 28, 2024 7:51am ACUTE RESPIRATORY FAILURE 2/2 ANGIOEDEMA December 29, 2024 7:18am ACUTE RESPIRATORY FAILURE 2/2 ANGIOEDEMA December 30, 2024 7:03am ACUTE RESPIRATORY FAILURE 2/2 ANGIOEDEMA December 30, 2024 8:54am LGIB WITH ABLA January 23, 2025 10:37 pm LGIB WITH ABLA January 24, 2025 7:47a m LGIB WITH ABLA January 25, 2025 9:26a m Hospital January 29, 2025 10:49 am EORDERS February 07, 2025 11:0 1am Cirrhosis February 26, 2025 1:5 8pm Reason for Visit Admit Date Atherosclerotic heart diseas e of grayling coronary artery without angina pectoris November 05, 2024 12:58pm Essential hypertension November 05, 2024 12:58pm Hyperlipidemia November 05, 2024 12: 58pm Acute respiratory failure December 27, 2024 1:58pm Angioedema December 27, 2024 1:58p m Eosinophilia December 27, 2024 1:58p m Hypotension due to drugs December 27, 2024 1:58pm Lymphopenia December 27, 2024 1:58p m Monocytosis December 27, 2024 1:58p m Acute cystitis without hematuria January 10:37pm Acute lower gastrointestinal bleeding Ju ly 2024 10:37pm Adverse drug reaction January 23, 2025 10: 37pm Overweight (BMI 25.0-29.9) January 23 10:37pm ABLA (acute blood loss anemia) January 23, 2025 10:37pm History of GI diverticular bleed January 10:37pm ABLA (acute blood loss anemia) January 29, 2025 10:49am History of GI diverticular bleed January 10:49am Diverticula of colon February 26, 2025 1: 58pm Cirrhosis, alcoholic February 26, 2025 1: 58pm Chief Complaint Admit Date ACUTE RESPIRATORY FAILURE 2/2 ANGIOEDEMA December 27, 2024 1:58pm SWOLLEN TONGUE December 27, 2024 2:11p m ACUTE RESPIRATORY FAILURE 2/2 ANGIOEDEMA December 28, 2024 7:51am ACUTE RESPIRATORY FAILURE 2/2 ANGIOEDEMA December 29, 2024 7:18am ACUTE RESPIRATORY FAILURE 2/2 ANGIOEDEMA December 30, 2024 7:03am ACUTE RESPIRATORY FAILURE 2/2 ANGIOEDEMA December 30, 2024 8:54am LGIB WITH ABLA January 23, 2025 10:37 pm LGIB WITH ABLA January 24, 2025 7:47a m LGIB WITH ABLA January 25, 2025 9:26a m [facility] January 29, 2025 10:49 am EORDERS February 07, 2025 11:0 1am Cirrhosis February 26, 2025 1:5 8pm Alcoholic cirrhosis of liver without asc ites March 10, 2025 9:43am Reason for Visit Admit Date Acute respiratory failure December 27, 2024 1:58pm Angioedema December 27, 2024 1:58p m Eosinophilia December 27, 2024 1:58p m Hypotension due to drugs December 27, 2024 1:58pm Lymphopenia December 27, 2024 1:58p m Monocytosis December 27, 2024 1:58p m Acute cystitis without hematuria January 10:37pm Acute lower gastrointestinal bleeding Ju ly 2024 10:37pm Adverse drug reaction January 23, 2025 10: 37pm Overweight (BMI 25.0-29.9) January 23 10:37pm ABLA (acute blood loss anemia) January 23, 2025 10:37pm History of GI diverticular bleed January 10:37pm ABLA (acute blood loss anemia) January 29, 2025 10:49am History of GI diverticular bleed January 10:49am Diverticula of colon February 26, 2025 1: 58pm Cirrhosis, alcoholic February 26, 2025 1: 58pm Advance Directives No Advanced Directives Records Found Advance Directive Response Recorded Date/ Time Living Will Yes March 25, 022 2:44pm Power of Beater Out Yes March 25, 2022 2:44pm Advance Directives on File No Septe [id number] 2:44pm Advance Directive Response Recorded Date/ Time Living Will Yes March 25 1:44pm Power of Beater Out Yes March 25, 2022 1:44pm Advance Directive Response Recorded Date/ Time Name of Medical Power of Beater Out son --Ye September 02, 2022 3:31pm Living Will Yes September 02 023 3:31pm Power of Beater Out Yes September 02, 2022 3:31pm Advance Directive Response Recorded Date/ Time Name of Medical Power of Beater Out son --Ye September 02, 2022 4:31pm Living Will Yes 2022 1:35pm Power of Beater Out Yes October 19 1:35pm Advance Directive Response Recorded Date/ Time Living Will Yes 2022 12:35pm Power of Beater Out Yes October 19 12:35pm Advance Directive Response Recorded Date/ Time Living Will Yes August 23 3:18pm Power of Beater Out Yes August 23, 2023 3:18pm Advance Directive Response Recorded Date/ Time Living Will Yes August 23 4:18pm Power of Beater Out Yes August 23, 2023 4:18pm Advance Directive Response Recorded Date/ Time Living Will Yes July 18 024 11:19am Power of Beater Out Yes July 18, 2024 11:19am Name of Medical Power of Beater Out jae matiascesar jonaabdoulaye July 18, 2024 11:19am Advance Directive Response Recorded Date/ Time Living Will Yes July 18 024 11:19am Do you have a Healthcare Pow er of Beater Out? Yes July 18, 2024 11:19am Name of Medical Power of Beater Out emeka marvin July 18, 2024 11:19am Advance Directive Response Recorded Date/ Time Do you have a Healthcare Power of Beater Out? No December 27, 2024 1:13pm Advance Directive Response Recorded Date/ Time Do you have a Healthcare Power of Beater Out? No December 27, 2024 1:13pm Do you have a Healthcare Power of Beater Out? Yes January 23, 2025 9:26pm Advance Directive Response Recorded Date/ Time Do you have a Healthcare Power of Beater Out? No December 27, 2024 1:13pm Do you have a Healthcare Power of Beater Out? Yes January 23, 2025 11:00pm Name of Medical Power of Beater Out Jae Matiasfrancisco javier January 23, 2025 11:00pm Family History No Family History Records Found Relationship Condition Age at Onset Recorded Date/T lacy mother Chronic obstructive pulmonary disease Unk nown Malignant neoplasm of lung Unknown father Cardiac disease Unknown Hypertension Unknown Myocardial infarction Unknown Summary Purpose Additional Source Comments Care Team (unrecognized sect ion and content) Setter Out Relationship Specialty Start Date End Date Valeriano Beasley MD [address] [place] [address] PCP - General Family Practice 03/15/21 Setter Out Relationship Specialty Start Date End Date Valeriano Beasley MD [address] [place] [address] PCP - General Family Practice 03/15/21 Setter Out Relationship Specialty Start Date End Date Valeriano Beasley MD [address] [place] [address] PCP - General Family Practice 03/15/21 Setter Out Relationship Specialty Start Date End Date Valeriano Beasley MD [facility] [place] [address] PCP - General Family Medicine 03/15/21 Setter Out Relationship Specialty Start Date End Date Valeriano Beasley MD [address] [place] [address] PCP - General Family Medicine 03/15/21 Setter Out Relationship Specialty Start Date End Date Valeriano Beasley MD [address] [place] [address] PCP - General Family Medicine 03/15/21 Setter Out Relationship Specialty Start Date End Date Valeriano Beasley MD [address] [place], [place] [address] PCP - General Family Medicine 03/15/21 Team [...] Beasley MD Primary Care Provider Active Dr. Marion Holguin MD Emergency Provider Active Dr. Jeal Ramos MD Admit Provider, Other Provider Active [...] Dr. Obdulio Crespo MD Attending Provider Active Setter Out Relationship Specialty Start Date End Date Valeriano Beasley MD [address] [facility] [place] [address] PCP - General Family Medicine 03/15/21 Setter Out Relationship Specialty Start Date End Date Valeriano Beasley MD [address] [place] [address] PCP - General Family Medicine 03/15/21 Setter Out Relationship Specialty Start Date End Date Valeriano Beasley MD [address] [place] [address] PCP - General Family Medicine 03/15/21 Setter Out Relationship Specialty Start Date End Date Valeriano Beasley MD [address] [place] [address] PCP - General Family Medicine 03/15/21 Setter Out Relationship Specialty Start Date End Date Valeriano Beasley MD [address] [place] [address] PCP - General Family Medicine 03/15/21 Setter Out Relationship Specialty Start Date End Date Valeriano Beasley MD [address] [place] [address] PCP - General Family Medicine 03/15/21 Setter Out Relationship Specialty Start Date End Date Valeriano Beasley MD [address] [place] [address] PCP - General Family Medicine 03/15/21 Team [...] Provider, Referri ng Provider Active Xochilt Casanova COMPOTYPE OPERATOR, COMPOTYPE OPERATOR-C Attending Provider Active Team Status: Active Member Role Status Dates Dr. Valeriano Beasley MD Primary Care Provider Active Liz Navarro Attending Provider Active Team Status: Inactive Member Role Status Dates Dr. Valeriano Beasley MD Primary Care Provider Active Xochilt Casanova COMPOTYPE OPERATOR, COMPOTYPE OPERATOR-C Attending Provider, Referrin g Provider Active Setter Out Relationship Specialty Start Date End Date Valeriano Beasley MD [address] [place] [address] PCP - General Family Medicine 03/15/21 Setter Out Relationship Specialty Start Date End Date Valeriano Beasley MD [address] [place] [address] PCP - General Family Medicine 03/15/21 Team Status: Active Member Role Status Dates Dr. Valeriano Beasley MD Primary Care Pro vider, Referring Provider, Other Provider Active Dr. Jung Braun MD Attending Provider Active Team Status: Inactive Member Role Status Dates Dr. Valeriano Beasley MD Primary Care Pro vider, Attending Provider, Referring Provider Active Setter Out Relationship Specialty Start Date End Date Valeriano Beasley MD [address] [place] [address] PCP - General Family Medicine 03/15/21 Setter Out Relationship Specialty Start Date End Date Valeriano Beasley MD [address] [place] [address] PCP - General Family Medicine 03/15/21 Setter Out Relationship Specialty Start Date End Date Valeriano Beasley MD [address] [place] [address] PCP - General Family Medicine 03/15/21 Setter Out Relationship Specialty Start Date End Date Valeriano Beasley MD [address] [place] [address] PCP - General Family Medicine 03/15/21 Setter Out Relationship Specialty Start Date End Date Valeriano Beasley MD [address] [place] [address] PCP - General Family Medicine 03/15/21 Team Status: Inactive Member Role Status Dates Dr. Valeriano Beasley MD Primary Care Provider, Referri ng Provider Active Estefany Thrasher COMPOTYPE OPERATOR, COMPOTYPE OPERATOR-C Attending Provider Active Team Status: Inactive Member [...] MD Primary Care Provider Active Estefany Thrasher COMPOTYPE OPERATOR, COMPOTYPE OPERATOR-C Attending Provider, Milly donnelly Active Setter Out Relationship Specialty Start Date End Date Valeriano Beasley MD [address] [place] [address] PCP - General Family Medicine 03/15/21 Team Status: Active Member Role Status Dates Dr. Valeriano Beasley MD Primary Care Provider Active Dr. Alexi Jaime MD Attending Provider Active Team Status: Active Member Role Status Dates Dr. Valeriano Beasley MD Primary Care Provider Active Estefany Thrasher COMPOTYPE OPERATOR, COMPOTYPE OPERATOR-C Attending Provider Active Setter Out Relationship Specialty Start Date End Date Valeriano Beasley MD [address] [place] [address] PCP - General Family Medicine 03/15/21 Setter Out Relationship Specialty Start Date End Date Valeriano Beasley MD [address] [facility] [place] [address] PCP - General Family Medicine 03/15/21 Setter Out Relationship Specialty Start Date End Date Valeriano Beasley MD [address] [place] [address] PCP - General Family Medicine 03/15/21 Setter Out Relationship Specialty Start Date End Date Valeriano Beasley MD [address] [place] [address] PCP - General Family Medicine 03/15/21 Setter Out Relationship Specialty Start Date End Date Valeriano Beasley MD [address] [place] [address] PCP - General Family Medicine 03/15/21 Setter Out Relationship Specialty Start Date End Date Valeriano Beasley MD [address] [place] [address] PCP - General Family Medicine 03/15/21 Setter Out Relationship Specialty Start Date End Date Valeriano Beasley MD [address] [place] [address] PCP - General Family Medicine 03/15/21 Setter Out Relationship Specialty Start Date End Date Valeriano Beasley MD [address] [place] [address] PCP - General Family Medicine 03/15/21 Setter Out Relationship Specialty Start Date End Date Valeriano Beasley MD [address] [place] [address] PCP - General Family Medicine 03/15/21 Setter Out Relationship Specialty Start Date End Date Valeriano Beasley MD [address] [place] [address] PCP - General Family Medicine 03/15/21 Setter Out Relationship Specialty Start Date End Date Valeriano Beasley MD [address] [place] [address] PCP - General Family Medicine 03/15/21 Setter Out Relationship Specialty Start Date End Date Valeriano Beasley MD [address] [place] [address] PCP - General Family Medicine 03/15/21 Setter Out Relationship Specialty Start Date End Date Valeriano Beasley MD [address] [place] [address] PCP - General Family Medicine 03/15/21 Setter Out Relationship Specialty Start Date End Date Valeriano Beasley MD [address] [place] [address] PCP - General Family Medicine 03/15/21 Setter Out Relationship Specialty Start Date End Date Valeriano Beasley MD [address] [place] [address] PCP - General Family Medicine 03/15/21 Setter Out Relationship Specialty Start Date End Date Valeriano Beasley MD [address] [place] [address] PCP - General Family Medicine 03/15/21 Ni Sauceda APRN.CNP [address] [place] [address] Us Administrative Law Judge Family Medicine 06/29/24 Suzanna Dawson PA-C [address] [facility] [place] [address] Us Administrative Law Judge Family Medicine 06/29/24 Setter Out Relationship Specialty Start Date End Date Valeriano Beasley MD [address] [facility] [place] [address] PCP - General Family Medicine 03/15/21 Ni Sauceda APRN.MOTHER'S HELPER [address] [place] [address] Us Administrative Law Judge Family Medicine 06/29/24 Suzanna Dawson PA-C [address] [place] [address] Us Administrative Law Judge Family Medicine 06/29/24 Setter Out Relationship Specialty Start Date End Date Valeriano Beasley MD [address] [place] [address] PCP - General Family Medicine 03/15/21 Ni Sauceda APRN.MOTHER'S HELPER [address] [place] [address] Us Administrative Law Judge Family Medicine 06/29/24 Suzanna Dawson PA-C [address] [facility] [place] [address] Us Administrative Law Judge Family Medicine 06/29/24 Setter Out Relationship Specialty Start Date End Date Valeriano Beasley MD [address] [facility] [place] [address] PCP - General Family Medicine 03/15/21 Ni Sauceda APRN.MOTHER'S HELPER [address] [place] [address] Us Administrative Law Judge Family Medicine 06/29/24 Suzanna Dawson PA-C [address] [place] [address] Us Administrative Law Judge Family Medicine 06/29/24 Setter Out Relationship Specialty Start Date End Date Valeriano Beasley MD [address] [place] [address] PCP - General Family Medicine 03/15/21 Ni Sauceda APRN.MOTHER'S HELPER [address] [place] [address] Us Administrative Law Judge Family Medicine 06/29/24 Suzanna Dawson PA-C [address] [place] [address] Us Administrative Law Judge Family Medicine 06/29/24 Setter Out Relationship Specialty Start Date End Date Valeriano Beasley MD [address] [place] [address] PCP - General Family Medicine 03/15/21 Ni Sauceda APRN.MOTHER'S HELPER [address] [place] [address] Us Administrative Law Judge Family Medicine 06/29/24 Suzanna Dawson PA-C [address] [place] [address] Us Administrative Law Judge Family Medicine 06/29/24 Setter Out Relationship Specialty Start Date End Date Valeriano Beasley MD [address] [place] [address] PCP - General Family Medicine 03/15/21 Ni Sauceda, EXPERIMENTAL DISPLAY BUILDER.MOTHER'S HELPER [address] [place] [address] Us Administrative Law Judge Family Medicine 06/29/24 Suzanna Dawson PA-C [address] [place] [address] Us Administrative Law Judge Family Medicine 06/29/24 Setter Out Relationship Specialty Start Date End Date Valeriano Beasley MD [address] [place] [address] PCP - General Family Medicine 03/15/21 Ni Sauceda, SUNIL.MOTHER'S HELPER [address] [place] [address] Us Administrative Law Judge Family Medicine 06/29/24 Suzanna Dawson PA-C [address] [place] [address] Us Administrative Law Judge Family Medicine 06/29/24 Setter Out Relationship Specialty Start Date End Date Valeriano Beasley MD [address] [place] [address] PCP - General Family Medicine 03/15/21 Ni Sauceda, EXPERIMENTAL DISPLAY BUILDER.MOTHER'S HELPER [address] [place] [address] Us Administrative Law Judge Family Medicine 06/29/24 Suzanna Dawson PA-C [address] [place] [address] Us Administrative Law Judge Family Medicine 06/29/24 Setter Out Relationship Specialty Start Date End Date Valeriano Beasley MD [address] [place] [address] PCP - General Family Medicine 03/15/21 Ni Sauceda APRN.MOTHER'S HELPER [address] [place] [address] Us Administrative Law Judge Family Medicine 06/29/24 Suzanna Dawson PA-C [address] [place] [address] Us Administrative Law Judge Family Medicine 06/29/24 Setter Out Relationship Specialty Start Date End Date Valeriano Beasley MD [facility] [place] [address] PCP - General Family Medicine 03/15/21 Ni Sauceda APRN.MOTHER'S HELPER [address] [place] [address] Us Administrative Law Judge Family Medicine 06/29/24 Suzanna Dawson PA-C [address] [place] [address] Us Administrative Law Judge Family Medicine 06/29/24 Patria Khanna Jr., MD [address] [place] [address] Neurology 09/25/24 Setter Out Relationship Specialty Start Date End Date Valeriano Beasley MD [address] [place] [address] PCP - General Family Medicine 03/15/21 Ni Sauceda APRN.MOTHER'S HELPER [address] [place] [address] [facility]ly [facility] 06/29/24 Suzanna Dawson PA-C [address] [place] [address] Formerly [facility] 06/29/24 Patria Khanna Jr., MD [address] [place], [place] 328711 Neurology 09/25/24 Team Status: Active Member Role [...] October 11, 2024 End: October 11, 2024 Setter Out Relationship Specialty Start Date End Date Valeriano Beasley MD [address] [place] [address] [id number] PCP - General Family Medicine 03/15/21 Ni Saucead APRN.PONCHO [address] [place] [address] Formerly [facility] 06/29/24 Suzanna Dawson PA-C [address] [place] [address] Us Administrative Law Judge Family Medicine 06/29/24 Patria Khanna Jr., MD [address] [place] [address] Neurology 09/25/24 Setter Out Relationship Specialty Start Date End Date Valeriano Beasley MD [address] [place] [address] PCP - General Family Medicine 03/15/21 Ni Sauceda, EXPERIMENTAL DISPLAY BUILDER.MOTHER'S HELPER [address] [place] [address] Us Administrative Law Judge Family Medicine 06/29/24 Suzanna Dawson PA-C [address] [place] [address] Us Administrative Law Judge Family Medicine 06/29/24 Patria Khanna Jr., MD [address] [place] [address] Neurology 09/25/24 Setter Out Relationship Specialty [place] [address] [place] [address] PCP - General Family Medicine 03/15/21 Ni Sauceda, EXPERIMENTAL DISPLAY BUILDER.MOTHER'S HELPER [address] [place] [address] Us Administrative Law Judge Family Medicine 06/29/24 Suzanna Dawson PA-C [facility] [place] [address] Us Administrative Law Judge Family Medicine 06/29/24 Patria Khanna Jr., MD [address] [place] [address] 195091 Neurology 09/25/24 Setter Out Relationship Specialty Start Date End Date Valeriano Beasley MD [address] [place] [address] PCP - General Family Medicine 03/15/21 Ni Sauceda, SUNIL.MOTHER'S HELPER [address] [place] [address] Us Administrative Law Judge Family Medicine 06/29/24 Suzanna Dawson PA-C [address] [place] [address] Us Administrative Law Judge Family Medicine 06/29/24 Patria Khanna Jr., MD [address] [place] [address] Neurology 09/25/24 Setter Out Relationship Specialty Start Date End Date Valeriano Beasley MD [facility] [place] [address] PCP - General Family Medicine 03/15/21 Ni Sauceda, EXPERIMENTAL DISPLAY BUILDER.MOTHER'S HELPER [address] [place] [address] Us Administrative Law Judge Family Medicine 06/29/24 Suzanna Dawson PA-C [address] [place] [address] Us Administrative Law Judge Family Medicine 06/29/24 Patria Khanna Jr., MD [address] [place] [address] Neurology 09/25/24 Setter Out Relationship Specialty [place] [address] [place] [address] [phone] PCP - General Family Medicine 03/15/21 Ni Sauceda APRN.MOTHER'S HELPER [address] [place] [address] [phone] Us Administrative Law Judge [facility] 06/29/24 Suzanna Dawson PA-C [address] [place] [address] [phone] [facility] Patria Khanna Jr., MD [address] [place] [address] [phone] Neurology 09/25/24 Team Status: Inactive Member Role Status Dates Dr. Valeriano Beasley MD Primary Care Provider Active Start: November 05, 2024 End: November 05, 2024 Dr. Valeriano Beasley MD Referring Provider Active Start: November 05, 2024 End: November 05, 2024 Estefany Thrasher COMPOTYPE OPERATOR, COMPOTYPE OPERATOR-C Attending Provider Active Start: November 05, 2024 [...] November 05, 2024 End: November 05, 2024 Setter Out Relationship Specialty Start Date End Date Valeriano Beasley MD [address] [place] [address] [phone] PCP - General Family Medicine 03/15/21 Ni Sauceda APRN.MOTHER'S HELPER [address] [place] [address] [phone] Us Administrative Law Judge Family [facility] 06/29/24 Suzanna Dawson PA-C [address] [place] [address] Us Administrative Law Judge Family [facility] 06/29/24 Patria Khanna Jr., MD [address] [place] [address] Neurology 09/25/24 Setter Out Relationship Specialty Start Date End Date Valeriano Beasley MD [address] [place] [address] PCP - General Family Medicine 03/15/21 Patria Khanna Jr., MD [address] [place] [address] Neurology 09/25/24 Ni Sauceda APRN.MOTHER'S HELPER [address] [place] [address] Us Administrative Law Judge Family Medicine 12/23/24 Suzanna Dawson PA-C [address] [place] [address] Us Administrative Law Judge [facility] 12/23/24 Setter Out Relationship Specialty Start Date End Date Valeriano Beasley MD [address] [place] [address] PCP - General Family Medicine 03/15/21 Patria Khanna Jr., MD [address] [place] [address] Neurology 09/25/24 Ni Sauceda APRN.MOTHER'S HELPER [address] [place] [address], [place] [address] Formerly [facility] 12/23/24 Suzanna Dawson PA-C [address] [place] [address] [facility] 12/23/24 Team Status: Active Member Role Status [...] Active Star t: December 29, 2024 Dr. Knean Dhesi , DO Other Provider Active St art: December 29, 2024 Dr. Carl Lieberman MD Other Provider Active Start: December 29, 2024 Dr. Ran Perea MD Other Provider Active St art: December 29, 2024 Dr. Gregory Hernandez , Other Provider Active Start: December 29, 2024 [...] Sta rt: December 30, 2024 Dr. Kasi Pian MD Other Provider Active Star t: December [...] Provider Active Star t: December 30, 2024 Setter Out Relationship Specialty Start Date End Date Valeriano Beasley MD [address] [place] [address] PCP - General Family Medicine 03/15/21 Patria Khanna Jr., MD [address] [place] [address] Neurology 09/25/24 Ni Sauceda APRN.MOTHER'S HELPER [address] [place] [address] Us Administrative Law Judge Family Medicine 12/23/24 Suzanna Dawson PA-C [address] [place] [address] Us [facility] 12/23/24 Setter Out Relationship Specialty Start Date End Date Valeriano Beasley MD [address] [place] [address] PCP - General Family Medicine 03/15/21 Ni Sauceda APRN.MOTHER'S HELPER [address] [place] [address] Us Administrative Law Judge Family [facility] 06/29/24 12/08/24 Suzanna Dawson PA-C [address] [place] [address] Us Administrative Law Judge Family [facility] 06/29/24 12/22/24 Patria Khanna Jr., MD [address] [place] [address] Neurology 09/25/24 Ni Sauceda APRN.MOTHER'S HELPER [address] [place] [address] [facility] Family [facility] 12/23/24 Suzanna Dawson PA-C [address] [place] [address] Us Administrative [facility] 12/23/24 Setter Out Relationship Specialty Start Date End Date Valeriano Beasley MD [address] [place] [address] PCP - General Family Medicine 03/15/21 Ni Sauceda EXPERIMENTAL DISPLAY BUILDER.MOTHER'S HELPER [address] [place] [address] [place] [address] Us Administrative Law Judge Family Medicine 06/29/24 12/08/24 Suzanna Dawson PA-C [address] [place] [address] Us Administrative Law Judge Family Medicine 06/29/24 12/22/24 Patria Khanna Jr., MD [address] [place] [address] Neurology 09/25/24 Ni Sauceda APRN.MOTHER'S HELPER [address] [place] [address] [facility] Family Medicine 12/23/24 Suzanna Dawson PA-C [address] [place] [address] [facility] 12/23/24 Setter Out Relationship Specialty Start Date End Date Valeriano Beasley MD [address] [place] [address] PCP - General Family Medicine 03/15/21 Patria Khanna Jr., MD [address] [place] [address] Neurology 09/25/24 Ni Sauceda APRN.MOTHER'S HELPER [address] [place] [address] [facility] Family Medicine 12/23/24 Suzanna Dawson PA-C [address] [place] [address] [facility] Family Medicine 12/23/24 Team Status: Active Member Role/Relationship Status [...] 2024 End: November 05, 2024 Estefany Thrasher COMPOTYPE OPERATOR, COMPOTYPE OPERATOR-C Attending Provider Active Start: November 05, 2024 [...] 2024 End: December 30, 2024 Dr. Marino Holguni MD Emergency Provider Active Sta rt: December [...] Active Start: December 28, 2024 Dr. Marino Hogluin MD Emergency Provider Active Sta rt: December [...] t: December 28, 2024 Dr. Kenan [place] , Other Provider Active St art: December 28, [...] Active Sta rt: December 29, 2024 Dr. Kais Pina MD Other Provider Active Star t: [...] t: December 30, 2024 Dr. Homer Guzman , Other Provider Active Start : December 30, [...] Attending Provider Active Start: January 23, 2025 Team Status: Inactive Member Role/Relationship Status Dates [...] End: November 05, 2024 Estefany Thrasher NP, COMPOTYPE OPERATOR-C Attending Provider Active Start: November 05, 2024 [...] 2024 End: December 30, 2024 Dr. Isabel Hagne MD Other Provider Active Star t: December [...] End: December 30, 2024 Dr. Kenan [place] , Other Provider Active St art: December 27, [...] Start : December 28, 2024 Dr. Tony Suhltz MD Other Provider Active Start: December 28, 2024 Dr. Ej Murguia MD Other Provider Active Start: December 28, 2024 Dr. Ricci Ballesteros MD Other Provider Active Star t: December 28, 2024 Dr. Homer Guzamn DO Other Provider Active Start : December [...] Active St art: December 28, 2024 Dr. Drwe Gibbons MD Other Provider Active Star t: December 28, 2024 Dr. Kenan [place] , Other Provider Active St art: December 28, [...] Provider Active Start: December 30, 2024 Dr. Spiek Floyd MD Other Provider Active Start : [...] Star t: December 30, 2024 Team Status: Inactive Member Role/Relationship Status Dates Dr. Valeriano Beasley MD Primary Care Provider Active Start: January 23, 2025 End: January 25, 2025 Dr. Jae Mcclure MD Emergency Provider Active S tart: January 23, 2025 End: January 25, 2025 Dr. Tessa Hampton DO Admit Provider Active Start: January 23, 2025 End: January 25, 2025 Dr. Tessa Hampton DO Other Provider Active Start: January 23, 2025 End: January 25, 2025 Dr. Shubham Blacno MD Attending Provider Active Start: January 23, 2025 End: January 25, 2025 Team Status: Active Member Role/Relationship Status Dates Dr. Valeriano Beasley MD Primary Care Provider Active Start: January 24, 2025 Dr. Jae Mcclure MD Emergency Provider Active S tart: January 24, 2025 Dr. Tessa Hampton DO Admit Provider Active Start: January 24, 2025 Dr. Tessa Hampton DO Other Provider Active Start: January 24, 2025 Dr. Shubham Blanco MD Attending Provider Active Start: January 24, 2025 Dr. Shubham Blanco MD Other Provider Active Sta rt: January 24, 2025 Team Status: Active Member Role/Relationship Status Dates Dr. Valeriano Beasley MD Primary Care Provider Active Start: January 25, 2025 Dr. Jae Mcclure MD Emergency Provider Active S tart: January 25, 2025 Dr. Tessa Hampton DO Admit Provider Active Start: January 25, 2025 Dr. Tessa Hampton DO Other Provider Active Start: January 25, 2025 Dr. Shubham Blanco MD Attending Provider Active Start: January 25, 2025 Dr. Shubham Blanco MD Other Provider Active Sta rt: January 25, 2025 Setter Out Relationship Specialty Start Date End Date Valeriano Beasley MD [address] [place], [place] 614041 PCP - General Family Medicine 03/15/21 Patria Khanna Jr., MD [address] [place] [address] [phone] Neurology 09/25/24 Ni Sauceda APRN.MOTHER'S HELPER [address] [place] [address] [phone] Us Administrative Law Judge Family [facility] 12/23/24 Suzanna Dawson PA-C [address] [place] [address] [phone] Us Administrative [facility] 12/23/24 Team Status: Inactive Member Role/Relationship Status Dates Dr. Valeriano Beasley MD Primary Care Provider Active Start: January 29, 2025 End: January 29, 2025 Dr. Valeriano Beasley MD Referring Provider Active Start: January 29, 2025 End: January 29, 2025 FAUSTO Britt Attending Provider Active Start: January 29, 2025 End: January 29, 2025 Setter Out Relationship Specialty Start Date End Date Valeriano Beasley MD [address] [place] [address] [phone] PCP - General Family Medicine 03/15/21 Patria Khanna Jr., MD [address] [place] [address] [phone] Neurology 09/25/24 Ni Sauceda APRN.MOTHER'S HELPER [address] [place] [address] [phone] [facility] Family [facility] 12/23/24 Suzanna Dawson PA-C [address] [place] [address] Us Administrative Law Judge Family Medicine 12/23/24 Setter Out Relationship Specialty Start Date End Date Valeriano Beasley MD [address] [place] [address] PCP - General Family Medicine 03/15/21 Patria Khanna Jr., MD [address] [place] [address] Neurology 09/25/24 Ni Sauceda APRN.MOTHER'S HELPER [address] [place] [address] Us Administrative Law Judge Family Medicine 12/23/24 Suzanna Dawson PA-C [address] [place] [address] Us Administrative Law Judge Family Medicine 12/23/24 Setter Out Relationship Specialty Start Date End Date Valeriano Beasley MD [address] [place] [address] PCP - General Family Medicine 03/15/21 Patria Khanna Jr., MD [address] [place] [address] Neurology 09/25/24 Ni Sauceda APRN.MOTHER'S HELPER [facility] [place] [address] Us Administrative Law Judge Family Medicine 12/23/24 Suzanna Dawson PA-C [address] [place] [address] Formerly [facility] 12/23/24 Team Status: Inactive Member Role/Relationship Status Dates Dr. Valeriano Beasley MD Primary Care Provider Active Start: November 05, 2024 End: November 05, 2024 Dr. Valeriano Beasley MD Referring Provider Active Start: November 05, 2024 End: November 05, 2024 Estefany Thrasher COMPOTYPE OPERATOR, COMPOTYPE OPERATOR-C Attending Provider Active Start: November 05, 2024 [...] Active Sta rt: December 29, 2024 Dr. Ksai Pina MD Other Provider Active Star t: [...] Star t: December 30, 2024 Team Status: Inactive Member Role/Relationship Status Dates Dr. Valeriano Beasley MD Primary Care Provider Active Start: January 23, 2025 End: January 25, 2025 Dr. Jae Mcclure MD Emergency Provider Active S tart: January 23, 2025 End: January 25, 2025 Dr. Tessa Hampton DO Admit Provider Active Start: January 23, 2025 End: January 25, 2025 Dr. Tessa Hampton DO Other Provider Active Start: January 23, 2025 End: January 25, 2025 Dr. Shubham Blanco MD Attending Provider Active Start: January 23, 2025 End: January 25, 2025 Team Status: Active Member Role/Relationship Status Dates Dr. Valeriano Beasley MD Primary Care Provider Active Start: January 24, 2025 Dr. Jae Mcclure MD Emergency Provider Active S tart: January 24, 2025 Dr. Tessa Hampton DO Admit Provider Active Start: January 24, 2025 Dr. Tessa Hampton DO Other Provider Active Start: January 24, 2025 Dr. Shubham Blanco MD Attending Provider Active Start: January 24, 2025 Dr. Shubham Blanco MD Other Provider Active Sta rt: January 24, 2025 Team Status: Active Member Role/Relationship Status Dates Dr. Valeriano Beasley MD Primary Care Provider Active Start: January 25, 2025 Dr. Jae Mcclure MD Emergency Provider Active S tart: January 25, 2025 Dr. Tessa Hampton DO Admit Provider Active Start: January 25, 2025 Dr. Tessa Hampton DO Other Provider Active Start: January 25, 2025 Dr. Shubham Blanco MD Attending Provider Active Start: January 25, 2025 Dr. Shubham Blanco MD Other Provider Active Sta rt: January 25, 2025 Team Status: Inactive Member Role/Relationship Status Dates Dr. Valeriano Beasley MD Primary Care Provider Active Start: January 29, 2025 End: January 29, 2025 Dr. Valeriano Beasley MD Referring Provider Active Start: January 29, 2025 End: January 29, 2025 FAUSTO Britt Attending Provider Active Start: January 29, 2025 End: January 29, 2025 Team Status: Inactive Member Role/Relationship Status Dates Dr. Valeriano Beasley MD Primary Care Provider Active Start: February 07, 2025 End: February 07, 2025 Dr. Shubham Blanco MD Attending Provider Active Start: February 07, 2025 End: February 07, 2025 Dr. Shubham Blanco MD Referring Provider Active Start: February 07, 2025 End: February 07, 2025 Team Status: Active Member Role/Relationship Status Dates Dr. Valeriano Beasley MD Primary Care Provider Active Start: February 25, 2025 Ashley [place] Attending Provider Active Start : February 25, 2025 Ashley [place] Referring Provider Active Start : February 25, 2025 Team Status: Inactive Member Role/Relationship Status Dates Dr. Valeriano Beasley MD Primary Care Provider Active Start: February 26, 2025 End: February 26, 2025 Dr. Valeriano Beasley MD Referring Provider Active Start: February 26, 2025 End: February 26, 2025 Dr. Shubham Blanco MD Attending Provider Active Start: February 26, 2025 End: February 26, 2025 Team Status: Inactive Member Role/Relationship Status Dates Dr. Valeriano Beasley MD Primary Care Provider Active Start: February 25, 2025 End: February 25, 2025 Ashley [place] Attending Provider Active Start : February 25, 2025 End: February 25, 2025 Ashley [place] Referring Provider Active Start : February 25, 2025 End: February 25, 2025 Team Status: Inactive Member Role/Relationship Status Dates [...] 2024 End: December 30, 2024 Dr. Joni Grasia MD Other Provider Active St art: December [...] Star t: December 29, 2024 Dr. Kenan Dhesi , DO Other Provider Active St art: December 29, 2024 Dr. Carl Lieberman MD Other Provider Active Start: December 29, 2024 Dr. Ran Perea MD Other Provider Active St art: December 29, 2024 Dr. Gregory Hernandez , Other Provider Active Start: December 29, 2024 Dr. Mohit Myers MD Other Provider Active Star t: December 29, 2024 Dr. Patria Crowe MD Other Provider Active Sta rt: December 29, 2024 Dr. Alexi Olivas DO Attending Provider Active Start: December 29, 2024 Dr. Alexi Olivas DO Other Provider Active Star t: December 29, 2024 Team Status: Active Member Role/Relationship Status Dates Dr. Valeriano Besaley MD Primary [...] Star t: December 30, 2024 Team Status: Inactive Member Role/Relationship Status Dates Dr. Valeriano Beasley MD Primary Care Provider Active Start: January 23, 2025 End: January 25, 2025 Dr. Jae Mcclure MD Emergency Provider Active S tart: January 23, 2025 End: January 25, 2025 Dr. Tessa Hampton DO Admit Provider Active Start: January 23, 2025 End: January 25, 2025 Dr. Tessa Hampton DO Other Provider Active Start: January 23, 2025 End: January 25, 2025 Dr. Shubham Blanco MD Attending Provider Active Start: January 23, 2025 End: January 25, 2025 Team Status: Active Member Role/Relationship Status Dates Dr. Valeriano Beasley MD Primary Care Provider Active Start: January 24, 2025 Dr. Jae Mcclure MD Emergency Provider Active S tart: January 24, 2025 Dr. Tessa Hampton DO Admit Provider Active Start: January 24, 2025 Dr. Tessa Hampton DO Other Provider Active Start: January 24, 2025 Dr. Shubham Blanco MD Attending Provider Active Start: January 24, 2025 Dr. Shubham Blanco MD Other Provider Active Sta rt: January 24, 2025 Team Status: Active Member Role/Relationship Status Dates Dr. Valeriano Beasley MD Primary Care Provider Active Start: January 25, 2025 Dr. Jae Mcclure MD Emergency Provider Active S tart: January 25, 2025 Dr. Tessa Hampton DO Admit Provider Active Start: January 25, 2025 Dr. Tessa Hampton DO Other Provider Active Start: January 25, 2025 Dr. Shubham Blanco MD Attending Provider Active Start: January 25, 2025 Dr. Shubham Blanco MD Other Provider Active Sta rt: January 25, 2025 Team Status: Inactive Member Role/Relationship Status Dates Dr. Valeriano Beasley MD Primary Care Provider Active Start: January 29, 2025 End: January 29, 2025 Dr. Valeriano Beasley MD Referring Provider Active Start: January 29, 2025 End: January 29, 2025 FAUSTO Britt Attending Provider Active Start: January 29, 2025 End: January 29, 2025 Team Status: Inactive Member Role/Relationship Status Dates Dr. Valeriano Beasley MD Primary Care Provider Active Start: February 07, 2025 End: February 07, 2025 Dr. Shubham Blanco MD Attending Provider Active Start: February 07, 2025 End: February 07, 2025 Dr. Shubham Blanco MD Referring Provider Active Start: February 07, 2025 End: February 07, 2025 Team Status: Inactive Member Role/Relationship Status Dates Dr. Valeriano Beasley MD Primary Care Provider Active Start: February 25, 2025 End: February 25, 2025 Ashley Radford Attending Provider Active Start : February 25, 2025 End: February 25, 2025 Ashley Radford Referring Provider Active Start : February 25, 2025 End: February 25, 2025 Team Status: Inactive Member Role/Relationship Status Dates Dr. Valeriano Beasley MD Primary Care Provider Active Start: February 26, 2025 End: February 26, 2025 Dr. Valeriano Beasley MD Referring Provider Active Start: February 26, 2025 End: February 26, 2025 Dr. Shubham Blanco MD Attending Provider Active Start: February 26, 2025 End: February 26, 2025 Team Status: Inactive Member Role/Relationship Status Dates Dr. Valeriano Beasley MD Primary Care Provider Active Start: March 10, 2025 End: March 10, 2025 Dr. Shubham Blanco MD Attending Provider Active Start: March 10, 2025 End: March 10, 2025 Dr. Shubham Blanco MD Referring Provider Active Start: March 10, 2025 End: March 10, 2025 Source Comments (unrecognize d section and content) In the event this informatio n is protected by the Federal Confidentiality of Alcohol and Drug Abuse Patient Records regulations: The Federal rules restrict any use of the information to criminally investigate or prosecute any alcohol or drug abuse patient.[facility] the event this information is protected by the Federal Confidentiality of Alcohol and Drug Abuse Patient Records regulations: The Federal rules restrict any use of the information to criminally investigate or prosecute any alcohol or drug abuse patient.[facility]In the event this information is protected by the Federal Confidentiality of Alcohol and Drug Abuse Patient Records regulations: The Federal rules restrict any use of the information to criminally investigate or prosecute any alcohol or drug abuse patient.[facility]In the event this information is protected by the Federal Confidentiality of Alcohol and Drug Abuse Patient Records regulations: The Federal rules restrict any use of the information to criminally investigate or prosecute any alcohol or drug abuse patient.[facility]In the event this information is protected by the Federal Confidentiality of Alcohol and Drug Abuse Patient Records regulations: The Federal rules restrict any use of the information to criminally investigate or prosecute any alcohol or drug abuse patient.[facility]In the event this information is protected by the Federal Confidentiality of Alcohol and Drug Abuse Patient Records regulations: The Federal rules restrict any use of the information to criminally investigate or prosecute any alcohol or drug abuse patient.[facility]In the event this information is protected by the Federal Confidentiality of Alcohol and Drug Abuse Patient Records regulations: The Federal rules restrict any use of the information to criminally investigate or prosecute any alcohol or drug abuse patient.[facility]In the event this information is protected by the Federal Confidentiality of Alcohol and Drug Abuse Patient Records regulations: The Federal rules restrict any use of the information to criminally investigate or prosecute any alcohol or drug abuse patient.[facility]In the event this information is protected by the Federal Confidentiality of Alcohol and Drug Abuse Patient Records regulations: The Federal rules restrict any use of the information to criminally investigate or prosecute any alcohol or drug abuse patient.[facility]In the event this information is protected by the Federal Confidentiality of Alcohol and Drug Abuse Patient Records regulations: The Federal rules restrict any use of the information to criminally investigate or prosecute any alcohol or drug abuse patient.[facility]In the event this information is protected by the Federal Confidentiality of Alcohol and Drug Abuse Patient Records regulations: The Federal rules restrict any use of the information to criminally investigate or prosecute any alcohol or drug abuse patient.[facility]In the event this information is protected by the Federal Confidentiality of Alcohol and Drug Abuse Patient Records regulations: The Federal rules restrict any use of the information to criminally investigate or prosecute any alcohol or drug abuse patient.[facility]In the event this information is protected by the Federal Confidentiality of Alcohol and Drug Abuse Patient Records regulations: The Federal rules restrict any use of the information to criminally investigate or prosecute any alcohol or drug abuse patient.[facility]In the event this information is protected by the Federal Confidentiality of Alcohol and Drug Abuse Patient Records regulations: The Federal rules restrict any use of the information to criminally investigate or prosecute any alcohol or drug abuse patient.[facility]In the event this information is protected by the Federal Confidentiality of Alcohol and Drug Abuse Patient Records regulations: The Federal rules restrict any use of the information to criminally investigate or prosecute any alcohol or drug abuse patient.[facility]In the event this information is protected by the Federal Confidentiality of Alcohol and Drug Abuse Patient Records regulations: The Federal rules restrict any use of the information to criminally investigate or prosecute any alcohol or drug abuse patient.[facility]In the event this information is protected by the Federal Confidentiality of Alcohol and Drug Abuse Patient Records regulations: The Federal rules restrict any use of the information to criminally investigate or prosecute any alcohol or drug abuse patient.[facility]In the event this information is protected by the Federal Confidentiality of Alcohol and Drug Abuse Patient Records regulations: The Federal rules restrict any use of the information to criminally investigate or prosecute any alcohol or drug abuse patient.[facility]In the event this information is protected by the Federal Confidentiality of Alcohol and Drug Abuse Patient Records regulations: The Federal rules restrict any use of the information to criminally investigate or prosecute any alcohol or drug abuse patient.[facility]In the event this information is protected by the Federal Confidentiality of Alcohol and Drug Abuse Patient Records regulations: The Federal rules restrict any use of the information to criminally investigate or prosecute any alcohol or drug abuse patient.[facility]In the event this information is protected by the Federal Confidentiality of Alcohol and Drug Abuse Patient Records regulations: The Federal rules restrict any use of the information to criminally investigate or prosecute any alcohol or drug abuse patient.[facility]In the event this information is protected by the Federal Confidentiality of Alcohol and Drug Abuse Patient Records regulations: The Federal rules restrict any use of the information to criminally investigate or prosecute any alcohol or drug abuse patient.[facility]In the event this information is protected by the Federal Confidentiality of Alcohol and Drug Abuse Patient Records regulations: The Federal rules restrict any use of the information to criminally investigate or prosecute any alcohol or drug abuse patient.[facility]In the event this information is protected by the Federal Confidentiality of Alcohol and Drug Abuse Patient Records regulations: The Federal rules restrict any use of the information to criminally investigate or prosecute any alcohol or drug abuse patient.[facility]In the event this information is protected by the Federal Confidentiality of Alcohol and Drug Abuse Patient Records regulations: The Federal rules restrict any use of the information to criminally investigate or prosecute any alcohol or drug abuse patient.[facility]In the event this information is protected by the Federal Confidentiality of Alcohol and Drug Abuse Patient Records regulations: The Federal rules restrict any use of the information to criminally investigate or prosecute any alcohol or drug abuse patient.[facility]In the event this information is protected by the Federal Confidentiality of Alcohol and Drug Abuse Patient Records regulations: The Federal rules restrict any use of the information to criminally investigate or prosecute any alcohol or drug abuse patient.[facility]In the event this information is protected by the Federal Confidentiality of Alcohol and Drug Abuse Patient Records regulations: The Federal rules restrict any use of the information to criminally investigate or prosecute any alcohol or drug abuse patient.[facility]In the event this information is protected by the Federal Confidentiality of Alcohol and Drug Abuse Patient Records regulations: The Federal rules restrict any use of the information to criminally investigate or prosecute any alcohol or drug abuse patient.[facility]In the event this information is protected by the Federal Confidentiality of Alcohol and Drug Abuse Patient Records regulations: The Federal rules restrict any use of the information to criminally investigate or prosecute any alcohol or drug abuse patient.[facility] the event this information is protected by the Federal Confidentiality of Alcohol and Drug Abuse Patient Records regulations: The Federal rules restrict any use of the information to criminally investigate or prosecute any alcohol or drug abuse patient.[facility]In the event this information is protected by the Federal Confidentiality of Alcohol and Drug Abuse Patient Records regulations: The Federal rules restrict any use of the information to criminally investigate or prosecute any alcohol or drug abuse patient.[facility]In the event this information is protected by the Federal Confidentiality of Alcohol and Drug Abuse Patient Records regulations: The Federal rules restrict any use of the information to criminally investigate or prosecute any alcohol or drug abuse patient.[facility]In the event this information is protected by the Federal Confidentiality of Alcohol and Drug Abuse Patient Records regulations: The Federal rules restrict any use of the information to criminally investigate or prosecute any alcohol or drug abuse patient.[facility]In the event this information is protected by the Federal Confidentiality of Alcohol and Drug Abuse Patient Records regulations: The Federal rules restrict any use of the information to criminally investigate or prosecute any alcohol or drug abuse patient.[facility]In the event this information is protected by the Federal Confidentiality of Alcohol and Drug Abuse Patient Records regulations: The Federal rules restrict any use of the information to criminally investigate or prosecute any alcohol or drug abuse patient.[facility]In the event this information is protected by the Federal Confidentiality of Alcohol and Drug Abuse Patient Records regulations: The Federal rules restrict any use of the information to criminally investigate or prosecute any alcohol or drug abuse patient.[facility]In the event this information is protected by the Federal Confidentiality of Alcohol and Drug Abuse Patient Records regulations: The Federal rules restrict any use of the information to criminally investigate or prosecute any alcohol or drug abuse patient.[facility]In the event this information is protected by the Federal Confidentiality of Alcohol and Drug Abuse Patient Records regulations: The Federal rules restrict any use of the information to criminally investigate or prosecute any alcohol or drug abuse patient.[facility]In the event this information is protected by the Federal Confidentiality of Alcohol and Drug Abuse Patient Records regulations: The Federal rules restrict any use of the information to criminally investigate or prosecute any alcohol or drug abuse patient.[facility]In the event this information is protected by the Federal Confidentiality of Alcohol and Drug Abuse Patient Records regulations: The Federal rules restrict any use of the information to criminally investigate or prosecute any alcohol or drug abuse patient.[facility]In the event this information is protected by the Federal Confidentiality of Alcohol and Drug Abuse Patient Records regulations: The Federal rules restrict any use of the information to criminally investigate or prosecute any alcohol or drug abuse patient.[facility]In the event this information is protected by the Federal Confidentiality of Alcohol and Drug Abuse Patient Records regulations: The Federal rules restrict any use of the information to criminally investigate or prosecute any alcohol or drug abuse patient.[facility]In the event this information is protected by the Federal Confidentiality of Alcohol and Drug Abuse Patient Records regulations: The Federal rules restrict any use of the information to criminally investigate or prosecute any alcohol or drug abuse patient.[facility]In the event this information is protected by the Federal Confidentiality of Alcohol and Drug Abuse Patient Records regulations: The Federal rules restrict any use of the information to criminally investigate or prosecute any alcohol or drug abuse patient.[facility]In the event this information is protected by the Federal Confidentiality of Alcohol and Drug Abuse Patient Records regulations: The Federal rules restrict any use of the information to criminally investigate or prosecute any alcohol or drug abuse patient.[facility]In the event this information is protected by the Federal Confidentiality of Alcohol and Drug Abuse Patient Records regulations: The Federal rules restrict any use of the information to criminally investigate or prosecute any alcohol or drug abuse patient.[facility]In the event this information is protected by the Federal Confidentiality of Alcohol and Drug Abuse Patient Records regulations: The Federal rules restrict any use of the information to criminally investigate or prosecute any alcohol or drug abuse patient.[facility]In the event this information is protected by the Federal Confidentiality of Alcohol and Drug Abuse Patient Records regulations: The Federal rules restrict any use of the information to criminally investigate or prosecute any alcohol or drug abuse patient.[facility]In the event this information is protected by the Federal Confidentiality of Alcohol and Drug Abuse Patient Records regulations: The Federal rules restrict any use of the information to criminally investigate or prosecute any alcohol or drug abuse patient.[facility]In the event this information is protected by the Federal Confidentiality of Alcohol and Drug Abuse Patient Records regulations: The Federal rules restrict any use of the information to criminally investigate or prosecute any alcohol or drug abuse patient.[facility]In the event this information is protected by the Federal Confidentiality of Alcohol and Drug Abuse Patient Records regulations: The Federal rules restrict any use of the information to criminally investigate or prosecute any alcohol or drug abuse patient.[facility]In the event this information is protected by the Federal Confidentiality of Alcohol and Drug Abuse Patient Records regulations: The Federal rules restrict any use of the information to criminally investigate or prosecute any alcohol or drug abuse patient.[facility]In the event this information is protected by the Federal Confidentiality of Alcohol and Drug Abuse Patient Records regulations: The Federal rules restrict any use of the information to criminally investigate or prosecute any alcohol or drug abuse patient.[facility]In the event this information is protected by the Federal Confidentiality of Alcohol and Drug Abuse Patient Records regulations: The Federal rules restrict any use of the information to criminally investigate or prosecute any alcohol or drug abuse patient.[facility]In the event this information is protected by the Federal Confidentiality of Alcohol and Drug Abuse Patient Records regulations: The Federal rules restrict any use of the information to criminally investigate or prosecute any alcohol or drug abuse patient.[facility]In the event this information is protected by the Federal Confidentiality of Alcohol and Drug Abuse Patient Records regulations: The Federal rules restrict any use of the information to criminally investigate or prosecute any alcohol or drug abuse patient.[facility]In the event this information is protected by the Federal Confidentiality of Alcohol and Drug Abuse Patient Records regulations: The Federal rules restrict any use of the information to criminally investigate or prosecute any alcohol or drug abuse patient.[facility]In the event this information is protected by the Federal Confidentiality of Alcohol and Drug Abuse Patient Records regulations: The Federal rules restrict any use of the information to criminally investigate or prosecute any alcohol or drug abuse patient.[facility]In the event this information is protected by the Federal Confidentiality of Alcohol and Drug Abuse Patient Records regulations: The Federal rules restrict any use of the information to criminally investigate or prosecute any alcohol or drug abuse patient.[facility]In the event this information is protected by the Federal Confidentiality of Alcohol and Drug Abuse Patient Records regulations: The Federal rules restrict any use of the information to criminally investigate or prosecute any alcohol or drug abuse patient.[facility]In the event this information is protected by the Federal Confidentiality of Alcohol and Drug Abuse Patient Records regulations: The Federal rules restrict any use of the information to criminally investigate or prosecute any alcohol or drug abuse patient.[facility]In the event this information is protected by the Federal Confidentiality of Alcohol and Drug Abuse Patient Records regulations: The Federal rules restrict any use of the information to criminally investigate or prosecute any alcohol or drug abuse patient.[facility]In the event this information is protected by the Federal Confidentiality of Alcohol and Drug Abuse Patient Records regulations: The Federal rules restrict any use of the information to criminally investigate or prosecute any alcohol or drug abuse patient.[facility]In the event this information is protected by the Federal Confidentiality of Alcohol and Drug Abuse Patient Records regulations: The Federal rules restrict any use of the information to criminally investigate or prosecute any alcohol or drug abuse patient.[facility]In the event this information is protected by the Federal Confidentiality of Alcohol and Drug Abuse Patient Records regulations: The Federal rules restrict any use of the information to criminally investigate or prosecute any alcohol or drug abuse patient.[facility]In the event this information is protected by the Federal Confidentiality of Alcohol and Drug Abuse Patient Records regulations: The Federal rules restrict any use of the information to criminally investigate or prosecute any alcohol or drug abuse patient.[facility]In the event this information is protected by the Federal Confidentiality of Alcohol and Drug Abuse Patient Records regulations: The Federal rules restrict any use of the information to criminally investigate or prosecute any alcohol or drug abuse patient.[facility]In the event this information is protected by the Federal Confidentiality of Alcohol and Drug Abuse Patient Records regulations: The Federal rules restrict any use of the information to criminally investigate or prosecute any alcohol or drug abuse patient.[facility]In the event this information is protected by the Federal Confidentiality of Alcohol and Drug Abuse Patient Records regulations: The Federal rules restrict any use of the information to criminally investigate or prosecute any alcohol or drug abuse patient.[facility]In the event this information is protected by the Federal Confidentiality of Alcohol and Drug Abuse Patient Records regulations: The Federal rules restrict any use of the information to criminally investigate or prosecute any alcohol or drug abuse patient.[facility]In the event this information is protected by the Federal Confidentiality of Alcohol and Drug Abuse Patient Records regulations: The Federal rules restrict any use of the information to criminally investigate or prosecute any alcohol or drug abuse patient.[facility]In the event this information is protected by the Federal Confidentiality of Alcohol and Drug Abuse Patient Records regulations: The Federal rules restrict any use of the information to criminally investigate or prosecute any alcohol or drug abuse patient.[facility]In the event this information is protected by the Federal Confidentiality of Alcohol and Drug Abuse Patient Records regulations: The Federal rules restrict any use of the information to criminally investigate or prosecute any alcohol or drug abuse patient.[facility]In the event this information is protected by the Federal Confidentiality of Alcohol and Drug Abuse Patient Records regulations: The Federal rules restrict any use of the information to criminally investigate or prosecute any alcohol or drug abuse patient.[facility]In the event this information is protected by the Federal Confidentiality of Alcohol and Drug Abuse Patient Records regulations: The Federal rules restrict any use of the information to criminally investigate or prosecute any alcohol or drug abuse patient.[facility]In the event this information is protected by the Federal Confidentiality of Alcohol and Drug Abuse Patient Records regulations: The Federal rules restrict any use of the information to criminally investigate or prosecute any alcohol or drug abuse patient.[facility]In the event this information is protected by the Federal Confidentiality of Alcohol and Drug Abuse Patient Records regulations: The Federal rules restrict any use of the information to criminally investigate or prosecute any alcohol or drug abuse patient.[facility]In the event this information is protected by the Federal Confidentiality of Alcohol and Drug Abuse Patient Records regulations: The Federal rules restrict any use of the information to criminally investigate or prosecute any alcohol or drug abuse patient.[facility]In the event this information is protected by the Federal Confidentiality of Alcohol and Drug Abuse Patient Records regulations: The Federal rules restrict any use of the information to criminally investigate or prosecute any alcohol or drug abuse patient.[facility] the event this information is protected by the Federal Confidentiality of Alcohol and Drug Abuse Patient Records regulations: The Federal rules restrict any use of the information to criminally investigate or prosecute any alcohol or drug abuse patient.[facility] the event this information is protected by the Federal Confidentiality of Alcohol and Drug Abuse Patient Records regulations: The Federal rules restrict any use of the information to criminally investigate or prosecute any alcohol or drug abuse patient.[facility] the event this information is protected by the Federal Confidentiality of Alcohol and Drug Abuse Patient Records regulations: The Federal rules restrict any use of the information to criminally investigate or prosecute any alcohol or drug abuse patient.[facility] the event this information is protected by the Federal Confidentiality of Alcohol and Drug Abuse Patient Records regulations: The Federal rules restrict any use of the information to criminally investigate or prosecute any alcohol or drug abuse patient.[facility] the event this information is protected by the Federal Confidentiality of Alcohol and Drug Abuse Patient Records regulations: The Federal rules restrict any use of the information to criminally investigate or prosecute any alcohol or drug abuse patient.[facility] the event this information is protected by the Federal Confidentiality of Alcohol and Drug Abuse Patient Records regulations: The Federal rules restrict any use of the information to criminally investigate or prosecute any alcohol or drug abuse patient.[facility] the event this information is protected by the Federal Confidentiality of Alcohol and Drug Abuse Patient Records regulations: The Federal rules restrict any use of the information to criminally investigate or prosecute any alcohol or drug abuse patient.[facility] the event this information is protected by the Federal Confidentiality of Alcohol and Drug Abuse Patient Records regulations: The Federal rules restrict any use of the information to criminally investigate or prosecute any alcohol or drug abuse patient.[facility] the event this information is protected by the Federal Confidentiality of Alcohol and Drug Abuse Patient Records regulations: The Federal rules restrict any use of the information to criminally investigate or prosecute any alcohol or drug abuse patient.[facility] the event this information is protected by the Federal Confidentiality of Alcohol and Drug Abuse Patient Records regulations: The Federal rules restrict any use of the information to criminally investigate or prosecute any alcohol or drug abuse patient.[facility] HealthIn the event this information is protected by the Federal Confidentiality of Alcohol and Drug Abuse Patient Records regulations: The Federal rules restrict any use of the information to criminally investigate or prosecute any alcohol or drug abuse patient.[facility]In the event this information is protected by the Federal Confidentiality of Alcohol and Drug Abuse Patient Records regulations: The Federal rules restrict any use of the information to criminally investigate or prosecute any alcohol or drug abuse patient.[facility] HealthIn the event this information is protected by the Federal Confidentiality of Alcohol and Drug Abuse Patient Records regulations: The Federal rules restrict any use of the information to criminally investigate or prosecute any alcohol or drug abuse patient.[facility] Reason for Visit (unrecogniz ed section and content) Reason Comments Appointment Reason Comments Insurance Authorization Reason Comments Orders Reason Comments Medicare Wellness Exam Reason Comments Consult Consult [facility] Reason Comments Results EGD results - [facility] Reason Comments Hospital F/U Reason Comments [...] Date Comments Population Health Navigation Outreach 08/25/2023 [facility] AWV Reason Comments Radiology CT Specialty Diagnoses / Procedures Referred By Sarkis gorman Referred To Contact CT IMAGING Diagnoses Other specified disorders of kidney and ureter Kidney lesion Procedures CT KIDNEY WO/W IVCON CT ABDOMEN W & W/O CONTRAST Valeriano Beasley MD [address] [facility] [place] [address] [place] [address] Referral ID Status Reason Start Date Expiration Date V isits Requested Visits Authorized [id number] Closed Auto-Generate d Referral 08/21/2023 09/19/2024 1 1 Reason Comments Outside Orthopedics Reason Comments outside imaging Reason Comments Outside Cardiology labs Reason Comments [facility] Reason Onset Date Comments Refill Request 09/25/2023 Reason Comments Outside Echo US Reason Onset Date Comments Population Health Navigation Outreach 10/14/2023 [facility] Annual Wellness Visit Reason Comments Orders labs Reason Comments Ext / Nuclear Stress Test Reason Comments Patient Question Reason Comments New Patient New patient. Pt repo rted bilateral numbness, weakness hands, feet x2 yrs. Specialty Diagnoses / Procedures Referred By Contac t Referred To Contact Neurology Diagnoses Balance problems Procedures CONSULT TO NEUROLOGY OFFICE/OUTPATIENT [facility] 60 MINUTES Suzanna Dawson PA-C [address] [place] [address] Referral ID Status Reason Start Date Expiration Date V isits Requested Visits Authorized [id number] Closed PCP Requested Referral 2023 10/18/2024 1 1 Reason Onset Date Comments Refill Request 01/08/2024 Reason Comments Outside Cardiology Specialty Diagnoses / Procedures Referred By Contac t Referred To Contact MR IMAGING Diagnoses Other symptoms and signs involving the nervous system Procedures MRA CAROTID WO IVCON MRA, NECK; W/O CONTRAST Patria Khanna Jr., MD [address] [place] [address] [address] [place] [address] [place] [address] Referral ID Status Reason Start Date Expiration Date V isits Requested Visits Authorized [id number] Closed Auto-Generate d Referral 01/01/2024 01/30/2025 1 1 Specialty Diagnoses / Procedures Referred By Contac t Referred To Contact MR IMAGING Diagnoses Other symptoms and signs involving the nervous system Procedures MRA BRAIN WO IVCON MRA, HEAD [place] [address] [place] [address] [address] [place] [address] [place] [address] Referral ID Status Reason Start Date Expiration Date V isits Requested Visits Authorized [id number] Closed Auto-Generate d Referral 01/01/2024 01/30/2025 1 1 Reason Comments Results Specialty Diagnoses / Procedures Referred By Contac t Referred To Contact CT IMAGING Diagnoses Occlusion and stenosis of unspecified carotid artery Procedures CTA NECK W IVCON CT ANGIOGRAPHY NECK W/CONTRAST/NONCONTRAST Patria Khanna Jr., MD [address] [facility] [address] [place] [address] [place] [address] Referral ID Status Reason Start Date Expiration Date V isits Requested Visits Authorized [id number] Closed Auto-Generate d Referral 02/07/2024 03/08/2025 1 [...] subsequent encounter Procedures CONSULT TO ALLERGY/IMMUNOLOGY OFFICE/OUTPATIENT [facility] 60 MINUTES Valeriano Beasley MD [address] [place] [address] Referral ID Status Reason Start Date Expiration Date V isits Requested Visits Authorized [id number] Closed PCP Requested Referral 07/31/2024 07/31/2025 1 1 Reason Comments Established Patient Balance problems, pt states balance is ok some days, neuropathy worsening Reason Comments Abnormal Lab Specialty Diagnoses / Procedures Referred By Contac t Referred To Contact Rheumatology Diagnoses Positive GALLO (antinuclear antibody) Procedures CONSULT TO RHEUM/IMMUN DISEASE OFFICE/OUTPATIENT [facility] 60 MINUTES Patria Khanna Jr., MD [facility] [place] [id number] Phone: tel: fax: Referral ID Status Reason Start Date Expiration Date V isits Requested Visits Authorized [id number] Closed PCP Requested Referral 08/30/2024 08/30/2025 1 1 Reason Comments Outside Imaging Reason Comments Outside [id number] Ordered Reason Comments Results Outside labs Reason Comments Outside Imaging Urology Reason Comments New Patient Reason Comments Established Patient Reason Comments 6 Month Exam Reason Comments Radiology US Specialty Diagnoses / Procedures Referred By Contac t Referred To Contact US IMAGING Diagnoses Screening for abdominal aortic aneurysm Procedures US SCREENING FOR AAA US ABDOMINAL AORTA REAL TIME SCREEN STUDY AAA Suzan SUNIL Red.[employer] [address] [place] [address] Phone: tel: fax: [place] [address] Referral ID Status Reason Start Date Expiration Date V isits Requested Visits Authorized [id number] Closed Auto-Generate d Referral 11/01/2024 12/01/2025 1 1 Reason Comments external document Lab results Reason Comments Follow Up Neuropathy follow up , patient states his episodes of Neuropathy are getting more frequent, about every week and of longer duration, will now last several days instead of just a few hours Reason Onset Date Comments Results 11/07/2024 Reason Comments Rectal Bleeding Reason Comments Abstract H Admission - GI b leed Reason Comments Abstract Allergy OV notes Care Team (unrecognized sect ion and content) Care Team Personnel Name: VALERIANO BEASLEY MD Member Role: Primary Care Physician Address: Address: [address] [place], [place] [id number]- Care Team Related Persons Name: JOSE HUTTON Goals (unrecognized section and content) Goals may be documented in a n alternate section (unrecognized sect ion and content) No Status Records FoundNo Status Records FoundNo Status Records FoundNo Status Records Found INFORMATION SOURCE (unrecogn ized section and content) DATE CREATED AUTHOR 01/03/2023 [facility] DATE CREATED AUTHOR AUTHOR'S ORGANIZ ATION 08/11/2023 [facility] DATE CREATED AUTHOR AUTHOR'S ORGANIZ ATION 02/28/2025 [facility] DATE CREATED AUTHOR AUTHOR'S ORGANIZ ATION 03/19/2025 [facility] FOR RECORDS PERTAINING TO PATIENTS WHO [...] BE BASED ON THE PRIMARY CLINICAL RECORDS. [employer] provides no warranty or guarantee of the accuracy or completeness of information in this document.
[2025-03-20] MEDS: Lactated Ringers 1,000 ML 15 ML IV (06:40)
--- NOTE | 2025-03-20 06:56 | HP.PCM_ITS ---
HPI - General General Date of Admission: 03/20/25 Date of Service: 03/20/25 Chief Complaint: varices screening HPI Narrative NICO LICONA, is a 74 M who presents with the Chief Complaint: of possible cirrhosis Details: US abd/ elastography 05.14.24- Liver measures 18.7cm, Stiffness measures 18.5 kPa OV 11..24 Previously established with GI for lower GI bleeds. Pt referred by PCP for elevated LFTs and fatty liver. Pt has hx of alcohol abuse following the of his a coulple years ago. States he currently drinks a few beers a day now. Pt denies any abdominal pain, heartburn or swelling. BM are normal once a day. Patient was drinking more after the of his about 6 packs/day in early 2021 but had cut down to few beers per day. Denies leg swelling, abdominal swelling, confusion or fall. CT abd/pel 2..- Peripheral right lobe hepatic lesion consistent with a vascular shunt, stable from the previous exam. No new or worrisome hepatic lesions identified. Cirrhotic morphology of the liver with steatosis and hepatomegaly. OV 02.25 Pt here for f/u cirrhosis. Pt reports trouble swallowing, foggy brain, dizziness, and swelling in R foot and tongue occasionally. MELD Na-9 METAVIR- F4 [facility] inpatient 7.3.25- 7.5.23- LGIB with ABLA OV 8.6.25- Pt well since last visit. Denies dizziness, weakness, SOB, abdominal pain. Has not seen any dark or bloody stools. Reports the last two weeks he has had increased swelling in both feet and ankles. [facility] Medical History Wears glasses Alcohol use Kidney stones Fatty liver Excessive bleeding High cholesterol History of GI bleed History of diverticulitis Gastric reflux History of edema History of echocardiogram History of stress test Cardiology follow-up encounter High serum parathyroid hormone (PTH) Heart murmur Elevated alkaline phosphatase level Elevated PSA Diverticulosis AVM (arteriovenous malformation) of colon Vitamin D deficiency Gout Alcohol abuse Essential hypertension Chest pain Anxiety Depression Myocardial infarct Chest pain Acute blood loss anemia Bloody diarrhea Coronary artery disease Atherosclerotic heart disease of [place] coronary artery without angina pectoris ST elevation MA (STEMI) (~11/29/21) Hyperlipidemia Hypertension Home Medications ?Medication ?Instructions ?Recorded ?Last Taken ?Type allopurinol 100 mg tablet 100 mg PO DAILY GOUT 2 01/23/25 08:20 History atorvastatin 80 mg tablet 80 mg PO QHS CHOLESTEOL 09/1403/19/25 History ezetimibe 10 mg tablet 10 mg PO QHS CHOLESTEROL 05/1503/19/25 History nitroglycerin 0.4 mg sublingual 0.4 mg sublingual UD P RN Chest Pain 09/02/22 Unknown History tablet cholecalciferol (vitamin D3) 125 125 mcg PO DAILY supp lement 09/01/23 03/19/25 History mcg (5,000 unit) capsule omega 3-dha 100 mg-epa 400 mg-fish 1 cap PO DAILY supp lement 09/01/23 03/19/25 History oil 1,000 mg capsule vitamin B complex (B 1 tab PO DAILY feet 09/01/23 03/19/25 History Complex-Vitamin B12 tablet) isosorbide mononitrate 30 mg 30 mg PO QAM bp 04/15/24 03/20/25 04:00 History tablet,extended release 24 hr amlodipine 5 mg tablet 5 mg PO QDAY bp 09/19/2410/15 08:20 History Held on 02/26/25. Instructions: Order Changed carvedilol 12.5 mg tablet 12.5 mg PO BID bp 09/19/24 0 03/20/25 04:00 History gabapentin 300 mg capsule 600 mg PO BID neuropathy 03/19/25 History doxepin 25 mg capsule 25 mg PO QHS mood 11/05/24 0 03/19/25 History aspirin 81 mg capsule 81 mg PO DAILY heart 5 01/23/25 08:21 History epinephrine 0.3 mg/0.3 mL 0.3 mg (0.3 mL) IM X1 PRN Unknown Rx injection, auto-injector (EpiPen) anaphylaxis/angioede ma #1 ea peg 3350-sod sulf,[id number] See Rx Instructions PO .COMPLEX #2 01/29/25 03/20/25 Rx 178.7-7.3-0.5-1.12-0.9 gram oral mL soln (Suflave) ferrous sulfate 325 mg (65 mg 325 mg PO QODAY #30 tabs 02/26/25 03/16/25 Rx iron) tablet pantoprazole 40 mg tablet,delayed 40 mg PO DAILY 1 mon #30 tabs 02/26/25 03/19/25 Rx release (Protonix) ascorbic acid (vitamin C) 1,000 mg 500 mg PO QDAY 02/2203/19/25 History tablet diphenhydramine HCl 25 mg capsule 25 mg PO Q8H PRN all ergic reaction 03/18/25 Unknown History (Aler-Cap) fexofenadine 180 mg tablet 180 mg PO DAILY 03/18/25 History (Adelita Allergy) multivitamin (Daily Multi-Vitamin 1 tab PO DAILY 03/1803/19/25 History tablet) Allergy/AdvReac Type Severity Reaction Status Date / Time losartan Allergy Severe Angioedema Verified 03/20/25 06:27 hydrochlorothiazide Allergy Hives Verified 03/20/25 06:27 Family History Mother COPD (chronic obstructive pulmonary disease) Lung cancer Father Heart disease Hypertension Myocardial infarction age 53 following MA. Surgical History History of cardiac catheterization H/O colonoscopy S/P cataract extraction Presence of coronary angioplasty implant and graft (~11/29/21) Social History household members: none Smoking Status: Former smoker how long ago did patient quit smoking: Smoked from age 18, 1 ppd x 4 years and then quit. alcohol intake: current alcohol intake frequency: a few times a week Alcohol type: beer substance use type: does not use ROS Constitutional Constitutional: Denies fatigue, fever(s), poor appetite, weight gain or weight loss Gastrointestinal Gastrointestinal: Denies belching, bloating, change in bowel habits, change in stool character, chewing difficulty, coffee ground emesis, constipation, cramping, diarrhea, dyspepsia, dysphagia, early satiety, excessive flatus, fecal incontinence, heartburn, hematemesis, hematochezia, hemorrhoids, loose stools, melena, nausea, odynophagia, rectal bleeding, tenesmus, vomiting or weight changes Vital Signs Vital Signs Vital Signs: 03/20/25 06:30 03/20/25 06:32 Temperature 97.5 F L Temperature Source Temporal Pulse Rate 71 Respiratory Rate 16 Respiratory Pattern Normal Blood Pressure 114/72 Blood Pressure Mean 86 Blood Pressure Source Monitor Blood Pressure Position Semi-Fowlers Blood Pressure Location Left Arm Pulse Ox 94 Oxygen Delivery Method Room Air Weight Weight: 214 lb 12.8 oz Body Mass Index (BMI) 30.8 Physical Exam Const alert, oriented x3, no apparent distress and healthy appearing General Appearance: cooperative GI normal to inspection, nondistended, normoactive bowel sounds, soft to palpation, non-tender and non-distended Percussion: normal to percussion Rectal Exam: deferred Assessment & Plan Assessment/Plan (1) Cirrhosis, alcoholic: (2) Dysphagia: PLAN: Assessment and Plan Assessment and Plan (1) Cirrhosis, alcoholic: Status: Chronic Plan: Latest MELD sodium score 6 from all MELD labs on January 24, 2025., Child score A. Platelet count normal Liver ultrasound with elastography shows mildly enlarged liver, 18.5 kPa, sugges tive of advanced fibrosis/cirrhosis, metavir stage IV. Abdomen triple phase was negative for arterial enhancing lesion or bile salt. It shows peripheral wedge-shaped. Vascular shunt in right lower hepatic lobe which is stable from previous exam. Patient most likely has alcoholic cirrhosis. carvedilol 12.5 mg twice daily for primary prophylaxis of esophageal varices 2D echo August 2023 Interpretation Summary Normal LV size. The estimated ejection fraction is 50 %. Mild segmental systolic dysfunction (see wall motion). Mild (1+) eccentric mitral valve insufficiency. Mild (1+) tricuspid valve insufficiency. RVSP 37 mmHg. 2 g sodium diet, avoiding excessive fluid, fast and frozen food recommended. Last EGD does not show varices. Currently patient has leg edema advised to hold amlodipine 5 mg. If swelling does not improve in last 1 month will need low-dose furosemide and spironolactone. Patient has follow-up appointment with Dr. Cuevas in the next 1 to 2 months. (2) Diverticula of colon: Status: Acute Plan: Last admission in January 2025 due to acute anemia of blood loss from lower GI bleed most likely due to recurrent diverticular bleed Previous colonoscopy in August 2022 for lower GI bleed at that time: Impression: - Non-bleeding internal hemorrhoids. - Diverticulosis in the recto-sigmoid colon, in the sigmoid colon, in the descending colon, at the splenic flexure and in the transverse colon. Injected. - Two 1 to 2 mm polyps in the sigmoid colon and in the cecum, removed using lift and cut and a hot snare. Resected and retrieved. Treated with argon plasma coagulation (APC). - Two bleeding colonic angiodysplastic lesions. Treated with argon plasma coagulation (APC). Patient did not had any blood loss/rectal bleed. Hemoglobin also improving. Last H&H 11.2/33.4%. Advised to go back on baby aspirin as patient has history of multiple MA with 4 stents with last stent in November 2021. Continue ferrous sulfate, ascorbic acid and PPI. Repeat labs ordered in 1 month. Follow-up in GI office in 4 months Orders: Orders ABD Limited w/ Elastography 1 Month D64.9 - Anemia, unspecified, I21.4 - Non-ST elevation (NSTEMI) myocardial infarction, I25.10 - Atherosclerotic heart disease of [place] coronary artery without angina pectoris, K70.30 - Alcoholic cirrhosis of liver without ascites, R06.02 - Shortness of breath Comprehensive Metabolic Profil 1 Month D64.9 - Anemia, unspecified, I21.4 - Non-ST elevation (NSTEMI) myocardial infarction, I25.10 - Atherosclerotic heart disease of [place] coronary artery without angina pectoris, K70.30 - Alcoholic cirrhosis of liver without ascites, R06.02 - Shortness of breath Prothrombin Time w/INR 1 Month D64.9 - Anemia, unspecified, I21.4 - Non-ST elevation (NSTEMI) myocardial infarction, I25.10 - Atherosclerotic heart disease of [place] coronary artery without angina pectoris, K70.30 - Alcoholic cirrhosis of liver without ascites, R06.02 - Shortness of breath Ferritin 1 Month D64.9 - Anemia, unspecified, I21.4 - Non-ST elevation (NSTEMI) myocardial infarction, I25.10 - Atherosclerotic heart disease of [place] coronary artery without angina pectoris, K70.30 - Alcoholic cirrhosis of liver without ascites, R06.02 - Shortness of breath CBC W/Diff, Automated 1 Month D64.9 - Anemia, unspecified, I21.4 - Non-ST elevation (NSTEMI) myocardial infarction, I25.10 - Atherosclerotic heart disease of [place] coronary artery without angina pectoris, K70.30 - Alcoholic cirrhosis of liver without ascites, R06.02 - Shortness of breath Iron+Iron Binding Capacity 1 Month D64.9 - Anemia, unspecified, I21.4 - Non-ST elevation (NSTEMI) myocardial infarction, I25.10 - Atherosclerotic heart disease of [place] coronary artery without angina pectoris, K70.30 - Alcoholic cirrhosis of liver without ascites, R06.02 - Shortness of breath Vitamin B12 1 Month D64.9 - Anemia, unspecified, I21.4 - Non-ST elevation (NSTEMI) myocardial infarction, I25.10 - Atherosclerotic heart disease of [place] coronary artery without angina pectoris, K70.30 - Alcoholic cirrhosis of liver without ascites, R06.02 - Shortness of breath
--- NOTE | 2025-03-20 06:58 | PRE.ANES_ITS ---
ASA Classification* ASA Classification ASA Classification: 3 Assessment & Plan Anesthesia* Anesthesia Assessment Anesthesia Assessment: Discussed sedation and/or anesthesia options, risks, benefits, and alternatives with patient/parents/legal guardian/POA. Questions invited. The patient/parents/legal guardian/POA seems to understand and agrees to proceed with anesthesia plan. Reviewed the physical assessment, medical history, allergy history and patient home medications list prior to surgery/procedure/anesthetic and documented any changes. Performed airway and anesthesia risk assessments. Anesthesia Type Anesthesia Type: MAC History Source History Obtained from:: Patient and Chart Anesthesia Focused Assessment* Temperature: 97.5 F Pulse Rate: 71 Blood Pressure: 114/72 Respiratory Rate: 16 Pulse Ox: 94 Oxygen Delivery Method: Room Air Airway Assessment Mouth opens: 2 cm Mallampati Score: IV Teeth Condition: Missing (Patient is missing several teeth. Rest are tight.) Neck Range of motion (ROM): Limited ROM (Slight Decrease) Labs Anesthesia Preop lab: CBC WBC 6.4 K/mm3 (4.4-11.0) 03/10/25 11:10 03/10/25 RBC 3.51 M/mm3 (4.6-6.2) L 03/10/25 11:10 03/10/25 Hgb 12.5 g/dL (13.0-16.5) L 03/10/25 11:10 5 Hct 37.1 % (40-54) L 03/10/25 11:10 03/10/25 Plt Count 180 K/mm3 (150-450) 03/10/25 11:10 03/10/25 CHEMISTRY Potassium 4.4 mmol/L (3.3-5.1) 03/10/25 11:10 03/10/25 Sodium 139 mmol/L (133-145) 03/10/25 11:10 03/10/25 Magnesium 2.1 mg/dL (1.5-2.2) 01/23/25 20:21 01/23/25 Phosphorus 2.8 mg/dL (2.7-4.5) 01/25/25 05:39 01/25/25 BUN 9 mg/dL (4-19) 03/10/25 11:10 03/10/25 Creatinine 0.74 mg/dL (0.70-1.20) 03/10/25 11:10 03/10/25 Glucose 115 mg/dL (70-99) H 03/10/25 11:10 03/10/25 TSH 1.920 uIU/mL (0.300-4.200) 01/24/25 04:04 0711/15 COAG PT 14.3 SECONDS (11.7-14.9) 03/10/25 11:10 Pre-Assessment Diagnosis/Proposed Procedure Planned Operative Procedure(s): COLONOSCOPY Anesthesia History 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 When Was Last Pacemaker Check QUESTION #4 FULL TEXT: You/Your Family Experience fever (hyperthermia) with Anesthesia Last Oral Intake Last Oral intake: Last Oral Intake NPO since 01:00 03/20/25 06:32 Meds taken in AM with sips of Yes 03/20/25 06:32 water? Meds patient instructed to take am of surgery Any additional information?: Yes NPO since: 01:00 (Patient finished prep at 1 AM.) Meds taken in AM with sips of water?: Yes PONV PONV - adaptive physical education teacher: PONV - adaptive physical education teacher Female No 03/18/25 11:59 HX of Motion Sickness No 03/18/25 11:59 HX of N/V After Surgery No 03/18/25 11:59 Non-Smoker Yes 03/18/25 11:59 Duration of Surgery greater No 03/18/25 11:59 than 60 minutes Number of Risk Factors 1 03/18/25 11:59 PONV Score Low Risk 03/18/25 11:59 Height & Weight Height & Weight: Anesthesia: Height & Weight Height 5 ft 10 in 03/20/25 06:32 Weight: 97.432 kg 03/20/25 06:32 Body Mass Index (BMI) 30.8 03/20/25 06:32 Respiratory Assessment Respiratory Assessment - adaptive physical education teacher: Respiratory Tract Infection Hx - adaptive physical education teacher Hx Respiratory Tract Infection No 03/18/25 11:59 STOP Sleep Apnea STOP Sleep Apnea - adaptive physical education teacher: STOP Sleep Apnea - adaptive physical education teacher Hx Hypertension Yes: CONTROLLED ON MED 03/18/25 11:59 Hx Sleep Apnea No 03/18/25 11:59 CPAP BIPAP Do you snore loudly (louder No 03/18/25 11:59 than talking or can be heard Do you often feel tired/ No 03/18/25 11:59 fatigued/ sleepy during daytime? Has anyone observed you stop No 03/18/25 11:59 breathing during sleep? STOP Results Negative 03/18/25 11:59 QUESTION #5 FULL TEXT : Do you snore loudly (louder than talking or can be heard through closed doors)? Tobacco Use History Tobacco Use History - adaptive physical education teacher: Tobacco Use History - adaptive physical education teacher Tobacco Use Smoking Status Former smoker 03/18/25 11:59 Hx Tobacco Use No 03/18/25 11:59 Years Smoking Packs Smoked per Day Smoking Cessation Date was No - quit smoking greater 03/18/25 11:59 within the last 15 years than 15 years ago Hx Smoking Cessation Date 07/24/71 03/18/25 11:59 Hx Smoking Cessation No 03/18/25 11:59 Counseling Hematologic Medial History Hematologic Hx - adaptive physical education teacher: Hematologic Medical Hx - psychiatric nurse Hx of Blood Transfusion Yes 03/18/25 11:59 Hx of Transfusion in last 3 No 03/18/25 11:59 Months Date of Last Transfusion (if within last 3 months) Ever experience any problems No 03/18/25 11:59 with transfusion(s)? Specify any problems Hx of Preganancy in last 3 N/A 03/18/25 11:59 Months Nurse Filling Out Transfusion VCHRISTIN 03/18/25 11:59 & Questions: Date: 03/18/25 03/18/25 11:59 Time: 12:00 03/18/25 11:59 Patient unable to answer at this time (ie. confused, unrespo /Reproduction History /Reproductive History - adaptive physical education teacher: /Reproductive Hx- adaptive physical education teacher Hx Now No 03/18/25 11:59 Gestational Age (in weeks): EDC: Hx Hx Para Hx Section SAB No 03/18/25 11:59 Active Medications Active Medications: Current Medications Generic Name Dose Route Start Last Admin Trade Name Dayna PRN Reason Stop Dose Admin Lactated Ringer's 1,000 mls @ 15 mls/hr 03/20/25 06:15 03/20/25 06:40 IV 15 mls/hr .Q48H YASMIN Administration PFSH Medical History Wears glasses Alcohol use Kidney stones Fatty liver Excessive bleeding High cholesterol History of GI bleed History of diverticulitis Gastric reflux History of edema History of echocardiogram History of stress test Cardiology follow-up encounter High serum parathyroid hormone (PTH) Heart murmur Elevated alkaline phosphatase level Elevated PSA Diverticulosis AVM (arteriovenous malformation) of colon Vitamin D deficiency Gout Alcohol abuse Essential hypertension Chest pain Anxiety Depression Myocardial infarct Chest pain Acute blood loss anemia Bloody diarrhea Coronary artery disease Atherosclerotic heart disease of [place] coronary artery without angina pectoris ST elevation [place] (STEMI) (~11/29/21) Hyperlipidemia Hypertension Home Medications ?Medication ?Instructions ?Recorded ?Last Taken ?Type allopurinol 100 mg tablet 100 mg PO DAILY GOUT 2 01/23/25 08:20 History atorvastatin 80 mg tablet 80 mg PO QHS CHOLESTEOL 09/1403/19/25 History ezetimibe 10 mg tablet 10 mg PO QHS CHOLESTEROL 05/1503/19/25 History nitroglycerin 0.4 mg sublingual 0.4 mg sublingual UD P RN Chest Pain 09/02/22 Unknown History tablet cholecalciferol (vitamin D3) 125 125 mcg PO DAILY supp lement 09/01/23 03/19/25 History mcg (5,000 unit) capsule omega 3-dha 100 mg-epa 400 mg-fish 1 cap PO DAILY supp lement 09/01/23 03/19/25 History oil 1,000 mg capsule vitamin B complex (B 1 tab PO DAILY feet 09/01/23 03/19/25 History Complex-Vitamin B12 tablet) isosorbide mononitrate 30 mg 30 mg PO QAM bp 04/15/24 03/20/25 04:00 History tablet,extended release 24 hr amlodipine 5 mg tablet 5 mg PO QDAY bp 09/19/2410/15 08:20 History Held on 02/26/25. Instructions: Order Changed carvedilol 12.5 mg tablet 12.5 mg PO BID bp 09/19/24 0 03/20/25 04:00 History gabapentin 300 mg capsule 600 mg PO BID neuropathy 03/20/25 History doxepin 25 mg capsule 25 mg PO QHS mood 11/05/24 0 03/19/25 History aspirin 81 mg capsule 81 mg PO DAILY heart 5 01/23/25 08:21 History epinephrine 0.3 mg/0.3 mL 0.3 mg (0.3 mL) IM X1 PRN Unknown Rx injection, auto-injector (EpiPen) anaphylaxis/angioede ma #1 ea peg 3350-sod [id number] See Rx Instructions PO .COMPLEX #2 01/29/25 03/20/25 Rx 178.7-7.3-0.5-1.12-0.9 gram oral mL soln (Suflave) ferrous sulfate 325 mg (65 mg 325 mg PO QODAY #30 tabs 02/26/25 03/16/25 Rx iron) tablet pantoprazole 40 mg tablet,delayed 40 mg PO DAILY Mon #30 tabs 02/26/25 03/19/25 Rx release (Protonix) ascorbic acid (vitamin C) 1,000 mg 500 mg PO QDAY 02/2203/19/25 History tablet diphenhydramine HCl 25 mg capsule 25 mg PO Q8H PRN all ergic reaction 03/18/25 Unknown History (Aler-Cap) fexofenadine 180 mg tablet 180 mg PO DAILY 03/18/25 History (Adelita Allergy) multivitamin (Daily Multi-Vitamin 1 tab PO DAILY 03/1803/19/25 History tablet) Allergy/AdvReac Type Severity Reaction Status Date / Time losartan Allergy Severe Angioedema Verified 03/20/25 06:27 hydrochlorothiazide Allergy Hives Verified 03/20/25 06:27 Family History Mother COPD (chronic obstructive pulmonary disease) Lung cancer Father Heart disease Hypertension Myocardial infarction age 53 following [place]. Surgical History History of cardiac catheterization H/O colonoscopy S/P cataract extraction Presence of coronary angioplasty implant and graft (~11/29/21) Social History household members: none Smoking Status: Former smoker how long ago did patient quit smoking: Smoked from age 18, 1 ppd x 4 years and then quit. alcohol intake: current alcohol intake frequency: a few times a week Alcohol type: beer substance use type: does not use Review of Systems (Anesthesia) ROS Narrative System reviewed and no additional complaints, except as documented.
--- NOTE | 2025-03-20 07:00 | COLBX_PTH ---
PATIENT: NICO LICONA LOC: EN U#:[id number] AGE/SX: 74/M ROOM: RE03/20/[address]: Dr. Ahmet Chacon DO : 1950 BED: DIS: 03/20/2025 SPEC #: [id number] RECD: 03/20/25 07:54 STATUS: ROSEMARIE REKaela #: [id number] SHARON: 03/20/25 07:[address]: Ahmet Chacon DEPT: SURGICAL PATHOLOGY RECD BY: Dewey Frausto ENTERED: 03/20/25 10:29 SP TYPE: COLON BX OTHR DR: Dr. Valeriano Beasley MD Tissues: A - Transverse colon B - Sigmoid colon biopsy Procedures: Surgery Specimen Level IV HEADER OPERATION: Colonoscopy, electrohemostasis, biopsy PRE-OP DIAGNOSIS: Diverticula of colon TISSUE SUBMITTED: A- Transverse biopsy, B- Sigmoid biopsy MICROSCOPIC DIAGNOSIS A. Transverse colon, biopsy: Tubular adenoma. B. Sigmoid colon, biopsy: Tubular adenoma x1. Hyperplastic polyp x2. MICROSCOPIC DESCRIPTION Slides are reviewed. GROSS DESCRIPTION A. Received in fixative is one container labeled with the patient's name and designated Transverse biopsy. The specimen consists of two irregular fragments of light alfaro soft tissue, each measuring 0.3 cm. The specimen is totally submitted in one cassette. B. Received in fixative is one container labeled with the patient's name and designated Sigmoid biopsy. The specimen consists of two irregular fragments of light alfaro soft tissue that measure 0.3 and 0.5 cm. The specimen is totally submitted in one cassette. OH 03/20/2025 CPT:24488a4
--- NOTE | 2025-03-20 07:41 | PCM.POST.ANE ---
Anesthesia: Postop Eval I Current Vital Signs Temperature: 97.7 F Pulse Rate: 68 Blood Pressure: 96/70 Respiratory Rate: 16 Pulse Ox: 94 Oxygen Delivery Method: Room Air Assessment Airway patent: Yes Spontaneous unlabored respirations: Yes Mental status: Asleep nausea: No Vomiting: No Anesthesia Complication: No Fluid Hydration Crystalloid volume administer (ml): 500 Total IV fluid infused: 500 Progress Note Anesthesia document: Postop Eval 1 completed: Yes
--- NOTE | 2025-03-20 07:44 | OP.COLON_ITS ---
Patient Name: Nazario Hutton Procedure Date: 03/20/2025 7:02 AM Date of : 1950 Age: 74 Procedure: Colonoscopy Indications: Iron deficiency anemia Providers: Ahmet Chacon DO Referring MD: Valeriano Beasley MD Medicines: Monitored Anesthesia Care Patient Profile: This is a 74 year old male. Refer to note in patient chart for documentation of history and physical. Last Colonoscopy: 1 year ago. Complications: No immediate complications. Procedure: Pre-Anesthesia Assessment: - Prior to the procedure, a History and Physical was performed, and patient medications and allergies were reviewed. The patient is competent. The risks and benefits of the procedure and the sedation options and risks were discussed with the patient. All questions were answered and informed consent was obtained. Patient identification and proposed procedure were verified by the physician in the pre-procedure area. Mental Status Examination: alert and oriented. Airway Examination: normal oropharyngeal airway and neck mobility. Respiratory Examination: clear to auscultation. CV Examination: normal. Prophylactic Antibiotics: The patient does not require prophylactic antibiotics. Prior Anticoagulants: The patient has taken no anticoagulant or antiplatelet agents except for NSAID medication. ASA Grade Assessment: II - A patient with mild systemic disease. After reviewing the risks and benefits, the patient was deemed in satisfactory condition to undergo the procedure. The anesthesia plan was to use monitored anesthesia care (MAC). Immediately prior to administration of medications, the patient was re-assessed for adequacy to receive sedatives. The heart rate, respiratory rate, oxygen saturations, blood pressure, adequacy of pulmonary ventilation, and response to care were monitored throughout the procedure. The physical status of the patient was re-assessed after the procedure. After I obtained informed consent, the scope was passed under direct vision. Throughout the procedure, the patient's blood pressure, pulse, and oxygen saturations were monitored continuously. The Colonoscope was introduced through the anus and advanced to the cecum, identified by appendiceal orifice and ileocecal valve. The colonoscopy was performed without difficulty. The patient tolerated the procedure well. The quality of the bowel preparation was adequate. The ileocecal valve, appendiceal orifice, and rectum were photographed. Scope In: 7:15:10 AM Scope Withdrawal Time 0 hours 11 minutes 55 seconds Scope Out: 7:31:22 AM Total Procedure Duration Time 0 hours 16 minutes 12 seconds Findings: The perianal and digital rectal examinations were normal. Multiple small and large-mouthed diverticula were found in the entire colon. Three sessile polyps were found in the sigmoid colon and transverse colon. The polyps were 7 mm in size. These polyps were removed with a cold biopsy forceps. Resection and retrieval were complete. Verification of patient identification for the specimen was done. Estimated blood loss was minimal. A single medium-sized localized angiodysplastic lesion without bleeding was found at the splenic flexure. Coagulation for bleeding prevention using heater probe was successful. Estimated blood loss was minimal. Impression: - Diverticulosis in the entire examined colon. - Three 7 mm polyps in the sigmoid colon and in the transverse colon, removed with a cold biopsy forceps. Resected and retrieved. - A single non-bleeding colonic angiodysplastic lesion. Treated with a heater probe. Recommendation: - Discharge patient to home. - Resume previous diet. - Continue present medications. - Await pathology results. - Repeat colonoscopy in 3 years for surveillance. Procedure Code(s): --- Professional --- 61060, 59, Colonoscopy, flexible; with control of bleeding, any method 65993, Colonoscopy, flexible; with biopsy, single or multiple CPT copyright 2021 [employer]. All rights reserved. The codes documented in this report are preliminary and upon force dispatcher review may be revised to meet current compliance requirements. Ahmet Chacon DO 03/20/2025 7:43:32 AM This report has been signed electronically. Number of Addenda: 0 Note Initiated On: 03/20/2025 7:02 AM
--- NOTE | 2025-03-20 07:44 | OP.PROVAT_ITS ---
03/20/2025 Valeriano Beasley MD Re : Colonoscopy procedure for Nazario Hutton Dear Dr. Beasley This procedure was performed on February. My impressions and recommendations are as follows: Impressions : - Diverticulosis in the entire examined colon. - Three 7 mm polyps in the sigmoid colon and in the transverse colon, removed with a cold biopsy forceps. Resected and retrieved. - A single non-bleeding colonic angiodysplastic lesion. Treated with a heater probe. Recommendations : - Discharge patient to home. - Resume previous diet. - Continue present medications. - Await pathology results. - Repeat colonoscopy in 3 years for surveillance. My findings are described in the full procedure note, which is enclosed. If I can be of further assistance, please feel free to contact me at . Sincerely, Ahmet Chacon, 03/20/2025 7:43:32 AM This report has been signed electronically.
--- NOTE | 2025-03-20 13:50 | PCM.POSTANE2 ---
Anesthesia Postop Eval I Sum Postop Eval Completion status Anesthesia document: Postop Eval 1 completed: Yes Anesthesia Postop Eval I Summary Anesthesia Postop Eval I Summary: Anesthesia Postop Eval I: Assessment Summary Airway patent Yes 03/20/25 07:42 [email or web address] Spontaneous unlabored Yes 03/20/25 07:42 [email or web address] respirations Mental status Asleep 03/20/25 07:42 [email or web address] nausea No 03/20/25 07:42 [email or web address] Vomiting No 03/20/25 07:42 [email or web address] Anesthesia Postop Eval I: Fluid Summary Crystalloid volume administer 500 03/20/25 07:42 [email or web address] (ml) Colloids volume administered ( ml) Blood Product volume administered (ml) Total IV fluid infused 500 03/20/25 07:42 [email or web address] Anesthesia Postop Eval I: Summary Notes Anesthesia Complication No 03/20/25 07:42 [email or web address] Anesthesia Complication Comment: Post-operative progress note Anesthesia: Postop Eval II Evaluation Mental status: Awake and Calm Pain Level: 0 nausea: No Vomiting: No Complications Anesthesia Complication: No
== END 2025-03-20 08:39 | disposition home or self-care (01) ==
LOC: EN 05:45 → AC 05:45
PROVIDERS: PCP Family Medicine; Referring Provider Family Medicine; Visit Provider Internal Medicine Gastroenterology
PROC: 0DJD8ZZ Inspection of Lower Intestinal Tract, Via Natural or Artificial Opening Endoscopic (ICD-10-PCS; CPT 45378; principal; 2025-03-20 06:55)
DX: D12.3 Benign neoplasm of transverse colon (principal); K70.30 Alcoholic cirrhosis of liver without ascites; I10 Essential (primary) hypertension; R13.10 Dysphagia, unspecified; K76.0 Fatty (change of) liver, not elsewhere classified; Z95.5 Presence of coronary angioplasty implant and graft; K57.30 Diverticulosis of large intestine without perforation or abscess without bleeding; E78.00 Pure hypercholesterolemia, unspecified; Z79.899 Other long term (current) drug therapy; Z87.891 Personal history of nicotine dependence; D50.9 Iron deficiency anemia, unspecified; I25.10 Atherosclerotic heart disease of native coronary artery without angina pectoris; K21.9 Gastro-esophageal reflux disease without esophagitis; I25.2 Old myocardial infarction; K55.20 Angiodysplasia of colon without hemorrhage; D12.5 Benign neoplasm of sigmoid colon; K63.5 Polyp of colon
CPT/HCPCS: 45382; 45380; 88305; C1889; J2405

== ENCOUNTER → 2025-05-12 | Outpatient (CLI) | payer MEDICARE, SELFPAY ==
[2023-08-23 15:18] VITALS: BMI 28.3
--- NOTE | 2025-05-12 12:56 | RAD_ITS ---
PROCEDURE: ABDOMEN SINGLE VIEW 05/12/2025 REASON FOR EXAM: KIDNEY STONE TECHNIQUE: Procedure Code: RADABD Modality: DX Procedure: ABDOMEN SINGLE VIEW COMPARISON: Abdomen study dated 02/26/2025 FINDINGS: Three frontal views of the abdomen were obtained. Bilateral renal stones are noted. The largest is located on the right side measuring approximately 9 mm. These are similar when compared to the prior exam. A moderate amount of stool and gas is present throughout a nondistended colon. No abnormally dilated gas-filled loops of small bowel are noted. The psoas muscles are well outlined. The renal outlines are partially obscured by overlying bowel gas and fecal material within colon. No gross organomegaly is seen. Phleboliths are seen in the pelvis. Spondylosis of the lumbar spine is noted. There is a subtle dextroscoliosis of the lumbar spine. RAD/Abdomen Single View IMPRESSION: Bilateral renal stones. The largest is located on the right side measuring 9 m m. Reading Location: [id number]
== END | disposition home or self-care (01) ==
LOC: RAD 12:41
PROVIDERS: PCP Family Medicine; Referring Provider Urology; Visit Provider Urology
DX: R73.03 Prediabetes (principal); Z79.899 Other long term (current) drug therapy; N40.0 Benign prostatic hyperplasia without lower urinary tract symptoms; E78.00 Pure hypercholesterolemia, unspecified; E55.9 Vitamin D deficiency, unspecified
CPT/HCPCS: 74018

== ENCOUNTER → 2025-06-09 | Outpatient (CLI) | payer MEDICARE, SELFPAY ==
[2023-08-23 15:18] VITALS: BMI 28.3
--- NOTE | 2025-06-09 06:45 | ECHOCS_ITS ---
Reason For Study Reason For Study: SOB Procedure This was a 2D Doppler, Color Flow transthoracic echocardiogram. The study was technically difficult. Contrast injection was performed. Exam performed in department. Left Ventricle Normal LV size. Moderate concentric left ventricular hypertrophy. The left ventricular ejection fraction is 25 %. There is moderate to severe global hypokinesis of the left ventricle. Right Ventricle Normal RV size. Normal systolic function. Atria The left atrium is mildly enlarged. Normal right atrium. Mitral Valve Normal mitral valve. Tricuspid Valve Normal tricuspid valve. Mild (1+) tricuspid valve insufficiency. Pulmonary artery systolic pressure is 33 mmHg. Aortic Valve Trisinus/trileaflet aortic valve. Moderate focal aortic valve calcification. Pulmonic Valve Normal pulmonic valve. Great Vessels Normal aortic root. The pulmonary artery is normal size. Inferior vena cava collapse with respiration. Pericardium/Pleural No pericardial effusion. Medication Diluted definity 2ml given slow IV push to enhance endocardial definition. MMode/2D Measurements & Calculations LVIDd: 5.0 cm IVSd: 1.5 cm Ao root diam: 3.5 cm LVIDs: 4.6 cm LVPWd: 1.4 cm RVDd: 3.4 cm FS: 7.9 % LAV(MOD-bp): 66.5 ml LVAd ap4: 36.2 cm2 SV(MOD-sp4): 29.1 ml LAV(MOD-bp) Indexed: 31.5 ml/m2 LVLd ap4: 9.0 cm SI(MOD-sp4): 13.8 ml/m2 LAV(MOD-sp2): 54.6 ml EDV(MOD-sp4): 119.4 ml LAV(MOD-sp4): 79.7 ml EDV(sp4-el): 123.5 ml LVAs ap4: 29.4 cm2 LVLs ap4: 7.9 cm ESV(MOD-sp4): 90.4 ml ESV(sp4-el): 92.9 ml EF(MOD-sp4): 24.3 % EF(sp4-el): 24.8 % SV(sp4-el): 30.6 ml LA A4 area: 23.7 cm2 LA dimension(2D): 5.1 cm RA A4 area: 12.5 cm2 Doppler Measurements & Calculations MV E max monika: 137.7 cm/sec Ao V2 max: 174.5 cm/sec LV V1 max: 133.1 cm/sec Ao max P.2 mmHg LV V1 max P.1 mmHg Ao V2 mean: 124.9 cm/sec LV V1 mean P.5 mmHg Ao mean P.0 mmHg LV V1 mean: 98.7 cm/sec Ao V2 VTI: 32.9 cm LV V1 VTI: 25.6 cm AV (velocity ratio): 0.78 PA V2 max: 141.6 cm/sec TR max monika: 264.9 cm/sec PA V2 mean: 95.2 cm/sec TR max P.1 mmHg ECHO/Echo Complete W/ Contrast Interpretation Summary Normal LV size. Moderate concentric left ventricular hypertrophy. The left ventricular ejection fraction is 25 %. There is moderate to severe global hypokinesis of the left ventricle. Contrast injection was performed. Ordering Physician: Estefany Thrasher Referring Physician: Estefany Thrasher Performed By: Martha Hines RCS
--- OUTSIDE RECORDS SUMMARY | 2025-06-09 06:48 | XMS RPT_ITS | CCD ---
Author Organization [facility] Care Team Providers Care Clinical Abstractor Name Role Phone VALERIANO CHOE MD Primary Care Physician Valeriano Choe MD Primary Care Provider Valeriano Choe MD Primary Care Provider Valeriano Choe MD Primary Care Provider Dr. Valeriano Choe Primary Care Provider Dr. Marino Holguin Emergency Provider Dr. Jael Ramos Admit Provider Dr. Jael Ramos Other Provider FriendDr. Leo Attending Provider Dr. Lukas Cuevas Attending Provider Dr. Jael Ramos Referring Provider Dr. Melissa Corbin Attending Provider Dr. Melissa Corbin Other Provider Dr. Lukas Cuevas Other Provider Dr. Obdulio Crespo Other Provider Dr. Obdulio Crespo Attending Provider Dr. Valeriano Choe Primary Care Provider Dr. Marino Holguin Emergency Provider [phone] Dr. Jael Ramos Admit Provider Dr. Jael Ramos Other Provider FriendDr. Leo Attending Provider Dr. Obdulio Crespo Referring Provider Dr. Lukas Cuevas Attending Provider Dr. Jael Ramos Referring Provider Korkarin, Dr. Melissa Whitman Referring Provider Korkarin, Dr. Melissa Whitman Attending Provider Koram, Dr. Melissa Whitman Other Provider Mason, Dr. Gaytan Other Provider Dr. Obdulio Crespo Other Provider Dr. Obdulio Crespo Attending Provider Mason, Dr. Gaytan Referring Provider Dr. Jorgito Moss Attending Provider Dr. Rizwana Hagen Referring Provider Liz Navarro Attending Provider Unavailable Dr. Valeriano Choe Referring Provider Edilberto DIESEL ENGINE FITTER, DIESEL ENGINE FITTER-C Xochilt Estrada Attending Provider YUSRA LUNA, TESSA Stanford Attending Unavailable GALE LUNA, VALERIANO Stanford Primary Care Unavailable TESSA MENG MD Attending Unavailable GALE LUNA, VALERIANO Stanford Primary Care Unavailable PHYSICIAN, NONE Admitting Unavailable TOM NASH MD, DR GERBER Attending Magali VALERIANO Mcnair MD Primary Care Unavailable Dr. Valeriano Choe Primary Care Provider Dr. Valeriano Choe Referring Provider Dr. Valeriano Choe Other Provider Dr. Jung Braun Attending Provider Dr. José Miguel Valverde Attending Provider Dr. Lukas Cuevas Attending Provider Price DIESEL ENGINE FITTER, DIESEL ENGINE FITTER-C Estefany Attending Provider Dr. Valeriano Choe Primary Care Provider Dr. Valeriano Choe Referring Provider Dr. José Miguel Valverde Attending Provider Dr. Lukas Cuevas Attending Provider FAUSTO Thrasher NP Attending Provider Dr. Alexi Jaime Attending Provider Gale LUNA, Valeriano Stanford Primary Care Provider [place] MEDICAL PLANNER.PATHOLOGY TECH, Ni Unavailable Samir JOHNSON, Suzanna Unavailable Carrie [...] LUNA, Dr. Geovani Martines Referring Provider [phone] Estefany Cool Attending Provider Suzan MEDICAL PLANNER.PATHOLOGY TECH, Ni Unavailable Samir JOHNSON, Suzanna Unavailable Gale LUNA, Dr. Bal Primary Care Provider Dr. Marino Holguin MD Emergency Provider Dr. Flakita Florentino DO Admit Provider Dr. Flakita Florentino DO Attending Provider Dr. Flakita Florentino DO Other Provider Carrington LUNA, Dr. Jimenez Other Provider Shantal LUNA, Dr. aPgan Other Provider Favian LUNA, Dr. Wynne Other Provider Dr. Homer Meng DO Other Provider Melony LUNA, Dr. Tessa Martinez Other Provider [phone] Sun LUNA, Dr. Quinones Other Provider Penny [...] Smooth LUNA, Dr. Bauer Other Provider [phone] Edwige LUNA, Dr. Russell Other Provider Denisa FLORES, Dr. Grayson Other Provider [phone] Luisana LUNA, Dr. Henry Other Provider [phone] Eliazar LUNA, Dr. Tong Other Provider David FLORES, Dr. Jenkins Other Provider Louis LUNA, Dr. Rueda Other Provider Sebastien LUNA, Dr. Larsen Other Provider [phone] Alexi Olivas DO Attending Provider Dr. Flakita Florentino DO Attending Provider Dr. Alexi Olivas DO Other Provider Dr. Homer Meng DO Attending Provider Suzan MEDICAL PLANNER.PATHOLOGY TECH, Ni Unavailable Samir JOHNSON, Suzanna Unavailable [phone] Gale LUNA, Dr. Bal Primary Care Provider [phone] Anderson LUNA, Dr. Geovani Martines Attending Provider Anderson LUNA, Dr. Geovani Martines Referring Provider [phone] Gale LUNA, Dr. Bal Referring Provider Francis LUNA, Dr. Jalloh Attending Provider Francis LUNA, Dr. Jalloh Referring Provider Brendon FLORES, Dr. Truong Referring Provider Ren LUNA, Dr. Pastor Emergency Provider de Abelino , Dr. Saez Admit Provider Unavail able de Abelino DO, Dr. Saez Attending Provider Unav frannie Choe MD, Dr. Bal Primary Care Provider Anderson LUNA, Dr. Geovani Martines Attending Provider Anderson LUNA, Dr. Geovani Martines Referring Provider Ren LUNA, Dr. Pastor Emergency Provider de Abelino DO, Dr. Saez Admit Provider Unavail able de Abelino , Dr. Saez Other Provider Unavail able Francis LUNA, Dr. Jalloh Other Provider Lance GRANDE-CPing Attending Provider Dr. Valeriano Choe MD Primary Care Provider Ashley Radford Attending Provider Ashley Radford Referring Provider Gale LUNA, Dr. Bal Primary Care Provider [phone] Francis LUNA, Dr. Jalloh Attending Provider Dr. Valeriano Choe MD Referring Provider Francis LUNA, Dr. Jalloh Referring Provider Dr. Ahmet Chacon DO Attending Provider Ines FLORES, Dr. Leo Other Provider Valeriano Choe Primary Care Unavailable Geovani Barron Attending Unavailable AndersonGeovani Referring Unavailable AndersonGeovani Attending Unavailable Gale, Valeriano Primary Care Unavailable Anderson, Maxime Referring Unavailable Gale, Valeriano Primary Care Unavailable Gale, Valeriano Referring Unavailable Estefany Thrasher NP Attending Unavailable Francis, Shubham Attending Unavailable Gale, Valeriano Primary Care Unavailable Gale, Valeriano Referring Unavailable Gale, Valeriano Referring Unavailable Gale, Valeriano Primary Care Unavailable Estefany Thrasher NP Attending Unavailable Francis, Shubham Attending Unavailable Gale, Valeriano Primary Care Unavailable Gale, Valeriano Referring Unavailable Francis, Shubham Attending Unavailable Francis, Shubham Referring Unavailable Gale, Valeriano Primary Care Unavailable Francis, Shubham Referring Unavailable Francis, Shubham Attending Unavailable Gale, Valeriano Primary Care Unavailable Gale, Valeriano Primary Care Unavailable WinfredAshley Referring Unavailable WinfredAshley Attending Unavailable Francis, Shubham Referring Unavailable Francis, Shubham Attending Unavailable Gale, Valeriano Primary Care Unavailable Gale, Valeriano Primary Care Unavailable Stan Gilbert Attending Unavailable Gale, Valeriano Primary Care Unavailable Tessa Hampton Consulting Unavailable Tessa Hampton Admitting Unavailable Tessa Hampton Attending Unavailable Francis, Shubham Attending Unavailable Francis, Shubham Consulting Unavailable Flakita Florentino Attending Unavailable Gale, Valeriano Primary Care Unavailable Gale, Valeriano Referring Unavailable Gale, Valeriano Primary Care Unavailable Ahmet Chacon Attending Unavailable Ahmet Chacon Consulting Unavailable Gale, Valeriano Primary Care Unavailable Tony Shultz Consulting Unavailable Alexi Olivas Attending Unavailable Flakita Florentino Admitting Unavailable Ej Murguia Consulting Unavailable Ricci Ballesteros Consulting Unavailable Homer Meng Consulting Unavailable Tessa Ty Consulting Unavailable Joni [...] Perea Consulting Unavailable Gregory Hernandez Consulting Unavailable Louis, Mohit Consulting Unavailable Patria Crowe Consulting Unavailable Flakita Florentino Consulting Unavailable Alexi Olivas Consulting Unavailable Gale, Valeriano Primary Care Unavailable Geovani Barron Attending Unavailable Geovani Barron Referring Unavailable Francis, Shubham Attending Unavailable Francis, Shubham Referring Unavailable Gale, Valeriano Primary Care Unavailable Francis, Shubham Referring Unavailable GaleValeriano solano Primary Care Unavailable Francis, Shubham Attending Unavailable Gale, Valeriano Primary Care Unavailable Geovani Barron Attending Unavailable AndersonGeovani ray Referring Unavailable Alexi Olivas Attending Unavailable Tony Shultz Consulting Unavailable Gale, Valeriano Primary Care Unavailable Flakita Florentino Admitting Unavailable Ej Murguia Consulting Unavailable Ricci Ballesteros Consulting Unavailable Homer Meng Consulting Unavailable Tessa Ty Consulting Unavailable Joni Garsia Consulting Unavailable Viktor Francis Consulting Unavailable Belia Villanueva Consulting UnavailSpike Copeland Consulting Unavailable Eric Dockery Consulting Unavailable Jim Marin Consulting Unavailable Isabel Hagen Consulting Unavailable Jaquelin Singh Consulting Unavailable Nelda Conde Consulting Unavailable Yovani, Kasi Consulting Unavailable Juancarlos Rebollar Consulting Unavailable Drew Gibbons Consulting Unavailable Kenan Crawley Consulting Unavailable Carl Lieberman Consulting Unavailable Ran Perea Consulting Unavailable Gregory Hernandez Consulting Unavailable Louis, Mohit Consulting Unavailable Patria Crowe Consulting Unavailable Flakita Florentino Consulting Unavailable Francis, Shubham Attending Unavailable Valeriano Choe Primary Care Unavailable Tessa Hampton Admitting Unavailable Tessa Hampton Consulting Unavailable Valeriano Choe Primary Care Unavailable Ahmet Chacon Attending Unavailable Valeriano Choe Referring Unavailable Valeriano Choe Primary Care Unavailable Ping Lucas Attending Unavailable Valeriano Choe Referring Unavailable Francis, Shubham Attending Unavailable Valeriano Choe Primary Care Unavailable Valeriano Choe Referring Unavailable Alexi Olivas Referring Unavailable Homer Meng Attending Unavailable Gale LUNA, Dr. Bal Primary Care Physician Dr. Jae Mcclure MD Emergency Department Physici an Dr. Tessa Hampton DO Admitting Physician Magali vailable Hampton DO, Dr. Saez Nurse Practitioner Unav ailable Francis LUNA, Dr. Jalloh Attending Physician Francis LUNA, Dr. Jalloh Nurse Practitioner Lacne GRANDE-C, Ping Attending Physician Ashley Radford Attending Physician Friend , Dr. Leo Attending Physician Ines FLORES, Dr. Leo Nurse Practitioner Price GRANDE-C, Estefany Attending Physician Anderson LUNA, Dr. Geovani Martines Attending Physician Anderson LUNA, Dr. Geovani Martines Referring Provider GALE, VALERIANO A Referring Unavailable GALE, VALERIANO A Primary Care Unavailable PAZHANISAMY, AMUDHA Attending Unavailable GALE, VALERIANO A Primary Care Unavailable PAZHANISAMY, AMUDHA Referring Unavailable SELF Referring Unavailable GALE, VALERIANO A Primary Care Unavailable PATRIA BUTLER JR Attending Unavailable GALE, VALERIANO A Primary Care Unavailable GALE, VALERIANO A Attending Unavailable PATRIA BUTLER JR Referring Unavailable GALE, VALERIANO A Primary Care Unavailable SUZANNA DAWSON Attending Unavailable GALE, VALERIANO A Primary Care Unavailable NI SAUCEDA Attending Unavailable GALE, VALERIANO A Primary Care Unavailable NI SAUCEDA Referring Unavailable GALE, VALERIANO A Primary Care Unavailable SELF Referring Unavailable GALE, VALERIANO A Primary Care Unavailable PATRIA BUTLER JR Attending Unavailable GALE, VALERIANO A Primary Care Unavailable MASCI, STEPHANIE A Referring Unavailable GALE, VALERIANO A Primary Care Unavailable MASCI, STEPHANIE A Attending Unavailable GALE, VALERIANO A Primary Care Unavailable MASCI, STEPHANIE A Attending Unavailable GALE, VALERIANO A Primary Care Unavailable TAYLER ELLIS Attending Unavailable GALE, VALERIANO A Primary Care Unavailable GALE, VALERIANO A Primary Care Unavailable GALE, VALERIANO A Attending Unavailable MASCI, STEPHANIE A Referring Unavailable GALE, VALERIANO A Primary Care Unavailable GALE, VALERIANO A Primary Care Unavailable GALE, VALERIANO A Attending Unavailable GALE, VALERIANO A Primary Care Unavailable GALE, VALERIANO A Referring Unavailable GALE, VALERIANO A Primary Care Unavailable PATRIA BUTLER JR Referring Unavailable VALERIANO CHOE Primary Care Unavailable NYLA FERGUSON Attending Unavailable PATRIA BUTLER JR Referring Unavailable VALERIANO CHOE Primary Care Unavailable PATRIA BUTLER JR Referring Unavailable STEPHANIE STALLINGS Attending Unavailable VALERIANO CHOE Primary Care Unavailable STEPHANIE STALLINGS Referring Unavailable VALERIANO CHOE Primary Care Unavailable VALERIANO CHOE Primary Care Unavailable NYLA FERGUSON Referring Unavailable VALERIANO CHOE Primary Care Unavailable Allergies Allergy Classification Reported Allergen(s) Allergy Type Date of Onset Reaction(s) Facility (20 sources) hydroCHLOROthiazide; Translations: [hydrochlorothiazide] Drug Allergy 008 Unknown [facility] Work Phone: Comment on above: rash (20 sources) environmental [Other] Propensity to adverse reactions Unknown [facility] Work Phone: (20 sources) Angiotensin II receptor antagonist; Translations: [ARB-ANGIOTENSIN RECEPTOR ANTAGONIST] Drug Intolerance Other: See Comments [facility] (20 sources) Sertraline; Translations: [SERTRALINE] Drug Allergy Other: See Comments [facility] (15 sources) Losartan Drug Allergy 024 Angioedema [facility] (1 source) hydroCHLOROthiazide Drug Allergy [facility] (1 source) Losartan Drug Allergy [facility] Medications Current Medications Medication Drug Class(es) Dates Sig (Normalized) Sig (Original) allopurinol 100 mg oral tablet (20 sources) Xanthine Oxidase Inhibitor Start: 09-27-2021 End: 09-25-2024 take 1 tablet by mouth once daily Comment on above: TAKE 1 TABLET BY ALISON ONCE DAILY. FOR GOUT. amLODIPine 5 mg oral tablet (20 sources) Dihydropyridine Calcium Channel Iban Start: 05-01-2024 End: 01-01-2025 take 1 tablet by mouth once daily Start: 04-04-2024 End: 09-19-2024 take 1 tablet [...] tablet (20 sources) Vitamin C Start: 02-26-2025 End: 03-18-2025 take 1 tablet by mouth once daily Start: 09-09-2022 End: 02-26-2025 take 1 tablet [...] take 1 capsule by mouth once daily Start: 03-25-2022 take 81 mg by mouth [...] take 1 tablet by mouth at bedtime Comment on above: TAKE 1 TABLET BY ALISON TH ONCE DAILY. FOR CHOLESTEROL. Blood Pressure Monitor (20 sources) Start: 05-01-20 Blood Pressure Monitor Indications: Essential hypertension, benign 1 Each once daily. 1 Kit 05/01/2024 Active carvedilol 12.5 mg oral tablet (20 sources) alpha-Adrenergic Iban, beta-Adrenergic Iban Start: 06-05-20 End: 01-02-20 take 1 tablet by mouth twice daily cholecalciferol 0.125 mg oral capsule (20 sources) Vitamin D Start: 09-01-19 take 1 capsule by mouth once daily Start: 03-25-2022 take 125 ug by mouth [...] 5,000 Units by mouth once daily. Co W53-Mquh Oil-Clinton 3-E (4 sources) Start: 03-25-2022 Co Y40-Oltx Oil-Clinton 3-E Active CAP PO March 24, 2022 11:00pm Start: 03-25-2022 Co Y99-Dqmk Oi l-Clinton 3-E Active CAP PO March 25, 2022 12:00am diphenhydrAMINE hydrochloride 25 mg oral capsule (20 sources) Histamine-1 Receptor Antagonist Start: 03-18-2025 take 1 capsule by mouth every eight hours as needed Start: 09-01-2023 End: 09-19-2024 take 1 tablet by mouth at bedtime as needed Diphenhydramine Hcl (Allergy (Diphenhydramine)) 25 mg tablet Discontinued 25 mg PO AT BEDTIME as needed September 01, 2023 1:00am September 19, 2024 3:07pm Start: 03-25-2022 take 1 capsule by [facility] at bedtime Diphenhydramine Hcl (Benadryl) 25 mg Capsule Active 25 MG PO AT BEDTIME March 24, 2022 11:00pm Start: 11-30-2021 Benadryl 25 mg oral tablet Dose : 25 mg = 1 tab(s), Oral, q6h, PRN for allergy symptoms, # 30 tab(s), 0 Refill(s) Start Date: 11/30/21 Status: Ordered Comment on above: Take 25 mg by mouth every 6 hours as needed. docosahexaenoic acid/epa (FISH OIL ORAL) (20 sources) take 1000 mg by mouth once daily docosahexaenoic acid/epa (FISH OIL ORAL) Take 1,000 mg by mouth once daily. Active docosahexaenoic acid/epa (FISH OIL ORAL) Take 1,000 mg by mouth. Active docosahexaenoic acid/epa (FISH OIL ORAL) Take 1,000 mg by mouth. 0 Active Comment on above: Take 1,000 mg by [facility]. doxepin hydrochloride 25 mg oral capsule (20 sources) Tricyclic Antidepressant Start: 11-05-2024 take 1 capsule by mouth at bedtime Start: 03-15-2021 End: 06-04-2024 take 1 capsule by mouth at bedtime as needed Doxepin 25 mg capsule Discontinued 25 mg PO AT BEDTIME as needed December 09, 2022 11:04am June 04, 2024 8:11am Comment on above: Take 1 capsule by [facility] daily at bedtime. [id number] 0.3 ml EPINEPHrine 1 mg/ml auto-injector (18 sources) alpha-Adrenergic Agonist, beta-Adrenergic Agonist, Catecholamine Start: 12-30-2024 EPINEPHrine (EPIPEN) 0.3 mg/0.3 mL auto-injector 0.3 mg. 12/30/2024 Active Start: 12-30-2024 ezetimibe 10 mg oral tablet (20 sources) Dietary Cholesterol Absorption Inhibitor Start: 04-18-2022 End: 01-01-2025 take 1 tablet by mouth at bedtime Comment on above: Take 1 tablet by alison th once daily. ferrous sulfate 325 mg oral tablet (20 sources) Start: 01-30-2025 take 1 tablet by mouth once ferrous sulfate 325 mg (65 mg iron) tablet Take 1 tablet by mouth once daily. Per gastro: Dr. Blanco 01/30/2025 Active Start: 01-25-2025 End: 02-26-2025 take 1 tablet by mouth every other day Start: 09-09-2022 End: 01-30-2025 take 1 tablet [...] above: Take 325 mg by mouth . fexofenadine hydrochloride 180 mg oral tablet (20 sources) Histamine-1 Receptor Antagonist Start: 03-18-2025 take 1 tablet by mouth once daily Start: 09-19-2024 End: 01-23-2025 take 1 tablet by mouth every other day Fexofenadine 180 mg tablet Discontinued 180 mg PO EVERY OTHER DAY September 19, 2024 1:00am January 23, 2025 11:23pm allergies Start: 08-19-2024 End: 09-25-2024 take 1 tablet by mouth once daily Fexofenadine (Marii Allergy) 180 mg tablet Active 180 mg PO DAILY March 18, 2025 12:00am Fish Oils (2 sources) Start: 11-30-2021 Fish Oil 1000 mg oral capsule Dose : 1,000 mg = 1 cap(s), Oral, qDay, 0 Refill(s) Start Date: 11/30/21 Status: Ordered furosemide 20 mg oral tablet (18 sources) Loop Diuretic Start: 05-06-2025 take 1 tablet by mouth once daily Start: 09-06-2023 End: 04-15-2024 take 1 tablet by mouth once daily Furosemide (Lasix) 40 mg tablet Discontinued 40 mg PO DAILY 5 0 September 06, 2023 1:00am April 15, 2024 11:11am gabapentin 300 mg oral capsule (20 sources) Anti-epileptic Agent Start: 09-19-2024 End: 06-04-2025 take 2 capsules by mouth twice daily Start: 08-30-2024 End: 11-28-2024 take 1 capsule [...] 1 tablet by mouth every twenty-four hours iv contrast (will be provided with radiology [...] 1 tablet by alison th once daily. Multivitamin (Daily Multi-Vi tamin) tablet (2 sources) Start: 03-18-2025 Start: 03-18-2025 Multivitamin ( Daily Multi-Vitamin) tablet Active 1 {tbl} PO DAILY March 18, 2025 12:00am multivitamin tablet (20 sources) Start: 04-18-2022 take 1 tablet by mouth once daily multivitamin tablet Take 1 tablet by mouth once daily. 04/18/2022 Active Start: 04-18-2022 take 1 tablet by alison th once daily multivitamin tablet Take 1 tablet by mouth once daily. 0 04/18/2022 Active Comment on above: Take 1 tablet by alison th once daily. Fizobjuibznd-Chr-Iy on-Fa-Vit K (Adults Multivitamin) 18 mg iron-400 mcg-25 mcg Tablet (4 sources) Start: 03-25-2022 take 1 tablet by mouth once Bgjqmxxalspv-Mpy-Hmm n-Fa-Vit K (Adults Multivitamin) 18 mg iron-400 mcg-25 mcg Tablet Active TABLET PO March 24, 2022 11:00pm Start: 03-25-2022 take 1 tablet by alison th once Icdfjqucxfdm-Tjf-Jcuf-Fa-Vit K (Adults Multivitamin) 18 mg iron-400 mcg-25 [...] daily for 10 days. nitroglycerin 0.4 mg subling ual tablet (20 sources) Nitrate Vasodilator Start: 04-18-2022 Start: 03-25-2022 Nitroglycerin Active 0.4 MG SL Q5M March 24, 2022 11:00pm do not exceed 3 doses per episode Start: 12-01-2021 nitroglycerin 0.4 mg sublingual tablet 0.4 mg Dose = 1 tab(s), Sublingual, q5min, PRN Chest pain, # 100 tab(s), 2 Refill(s), Pharmacy: [facility]/pharmacy #[id number], 177.8, cm, 11/29/21 16:55:00 EDT, Height Start Date: 12/01/21 Status: Ordered Comment on above: Dissolve 1 tablet un miesha the tongue every 5 minutes as needed for chest pain. Clinton 2-Rop-Fst-Fish Oil (2 sources) Start: 09-01-2023 Clinton 1-Owu-Kuv-Fish Oil Active CAP PO September 01, 2023 1:00am Start: 09-01-2023 Clinton 3-Dha-Ep a-Fish Oil Active CAP PO September 01, 2023 12:00am Clinton 7-Yee-Cqk-Fish Oil 100-400-1,000 mg capsule (15 sources) Start: 09-01-2023 take 100-400 capsule s by mouth once daily Start: 09-01-2023 take 100-400 capsule s by mouth once daily Clinton 7-Ywz-The-Fish Oil 100-400-1,000 mg capsule Active 1 NMA PO DAILY September 01, 2023 1:00am supplement Start: 09-01-2023 take 100-400 capsule s by mouth once daily as needed Clinton 0-Hsv-Kqj-Fish Oil 100-400-1,000 mg capsule Active 1 NMA PO DAILY as needed for supplement September 01, 2023 1:00am Start: 09-01-2023 Clinton 3-Dha-Ep a-Fish Oil 100-400-1,000 mg capsule Active NMA PO September 01, 2023 1:00am Peg 3350-Sod Sulf,Rynq-Weg-Zyt (1 source) Start: 01-29-2025 Peg 3350-Sod Sulf,Dyra-Syg-Jzv (Suflave) 178.7-7.3-0.5 gram recon soln (6 sources) Start: 01-29-2025 Peg 3350-Sod Sulf,Jinr-Ooy-Tuv (Suflave) 178.7-7.3-0.5 gram recon soln Active 0 [...] BID, # 60 tab(s), 5 Refill(s), Pharmacy: [facility]/pharmacy #[id number], 177.8, cm, 01/27/22 6:11:00 EDT, Height, kg, 01/27/22 6:11:00 EDT, Dosing Weight Start Date: 01/27/22 Status: Ordered spironolactone 25 mg oral tablet (16 sources) Aldosterone Antagonist Start: 05-06-2025 take 1 tablet by mouth once daily Start: 09-19-2024 End: 11-05-2024 Spironolactone 25 mg tablet Discontinued 12.5 mg PO DAILY 30 30 2 September 19, 2024 1:00am November 05, 2024 1:05pm Hold for serum potassium more than 5.0 Vitamin B Complex (20 sources) take 1 tablet by alison th once daily VITAMIN B COMPLEX (B COMPLEX 1 ORAL) Take 1 tablet by mouth once daily. Active VITAMIN B COMPLE X (B COMPLEX 1 ORAL) Take by mouth. Active VITAMIN B COMPLE X (B COMPLEX 1 ORAL) Take by mouth. 0 Active Comment on above: Take by mouth. Vitamin B Complex (B Complex -Vitamin B12) tablet (17 sources) Start: 09-01-2023 Start: 09-01-2023 Vitamin B Comp anne (B [...] [facility] daily. [facility] BPM-AUTO ARM [...] FOR HOME USE. DX: LABILE BLOOD PRESSURE cetirizine hydrochloride 10 mg oral tablet (8 sources) Histamine-1 Receptor Antagonist Start: 5 End: 5 take 1 tablet by mouth once daily as needed Cetirizine (24hour Allergy) 10 mg tablet Discontinued 10 mg PO DAILY as needed for allergy symptoms January 23, 2025 12:00am March 18, 2025 11:50am clopidogrel 75 mg oral tablet (20 sources) [...] qDay, # 30 tab(s), 3 Refill(s), Pharmacy: [facility]/pharmacy #[id number], 175.3, cm, 12/28/21 11:24:00 EDT, Height Start Date: 12/28/21 Status: Ordered Comment on above: Take 1 tablet by alison th once daily. famotidine 20 mg oral tablet (20 sources) Histamine-2 Receptor Antagonist Start: 4 End: [...] 29, 2024 12:00am April 15, 2024 11:11am FLUoxetine 40 mg oral capsule (20 sources) Serotonin Reuptake Inhibitor Start: 07-31-2024 End: 12-30-2024 take 1 capsule by mouth once daily Fluoxetine 40 mg capsule Discontinued 40 mg PO daily September 19, 2024 1:00am December 30, 2024 8:59am mood losartan potassium 50 mg oral tablet (20 [...] with meals. ofloxacin 3 mg/ml ophthalmic solution (20 sources) Quinolone Antimicrobial Start: 09-02-19 End: 12-10-19 [...] Take one tablet by m outh daily ticagrelor 90 mg oral tablet (5 sources) Start: 12-06-2021 End: 04-18-2022 ticagrelor (BRILINTA) 90 mg tablet Take 1 tablet by mouth twice daily. Per Dr. Claudio Raymond 0 12/06/2021 04/18/2022 Discontinued Start: 12-01-2021 ticagrelor 90 mg oral tablet Dose : 90 mg = 1 tab(s), Oral, q12h, # 60 tab(s), 6 Refill(s), Pharmacy: [facility]/pharmacy #[id number], 177.8, cm, 11/29/21 16:55:00 EDT, Height Start Date: 12/01/21 Status: Ordered Comment on above: Take 1 tablet by alison th twice daily. Per CardioDr. Snyder Problems Active Problems Problem Classification Problem Date Documented Da te Episodic/Chronic Acute and unspecified renal failure (20 sources) Injury of kidney; Translations: [Acute kidney failure, unspecified] 09-02-2022 Episodic Acute myocardial infarction (20 sources) ST elevation (STEMI) myocardial infarction of unspecified site; Translations: [Myocardial infarction] Onset: 2 Resolved: 3 Chronic Comment on above: with 4 stents Adjustment disorders (20 sources) Reactive depression (situational); Translations: [Adjustment disorder with depressed mood] Onset: 3 Chronic Administrative/social admission (20 sources) Advance directive discussed with patient; Translations: [Other specified counseling] Onset: 2 Episodic Alcohol-related disorders (20 sources) Alcohol abuse; Translations: [Alcohol abuse, uncomplicated] Onset: 3 Chronic Anxiety disorders (20 sources) Anxiety; Translations: [Anxiety disorder, unspecified] Onset: 5 03-15-2021 Chronic Aortic; peripheral; and visceral artery aneurysms (17 sources) Aortic root dilatation; Translations: [Thoracic aortic ectasia] 09-05-2023 Chronic Calculus of urinary tract (20 sources) Kidney stone; Translations: [Calculus of kidney] Onset: 5 10-17-2023 Episodic Cardiac dysrhythmias (3 sources) Unspecified atrial fibrillation; Translations: [Junctional escape beats] Onset: 2 Chronic Complications of surgical procedures or medical care (20 sources) Drug-induced hypotension; Translations: [Hypotension due to drugs] 12-27-2024 Episodic Conditions associated with dizziness or vertigo (19 sources) Dizziness; Translations: [Dizziness and giddiness] 09-05-2023 Episodic Coronary atherosclerosis and other heart disease (20 sources) Coronary atherosclerosis; Translations: [Atherosclerotic heart disease of teller coronary artery without angina pectoris] Onset: 2 Chronic Deficiency and other anemia (10 sources) Anemia; Translations: [Anemia, unspecified] Episodic Diabetes mellitus without complication (20 sources) Impaired fasting glycemia; Translations: [Impaired fasting glucose] Onset: 8 Resolved: 9 08-01-2018 Episodic Diseases of white blood cells (20 [...] Translations: [Essential (primary) hypertension] Onset: 8 Chronic Gout and other crystal arthropathies (20 sources) Gout, unspecified; Translations: [Gout] Onset: 1 Chronic Immunizations and screening for infectious disease (6 sources) Vaccination needed; Translations: [Encounter for immunization] Onset: 5 04-20-2023 Episodic Neoplasms of unspecified nature or uncertain behavior (5 sources) Monoclonal gammopathy (clinical); Translations: [Monoclonal gammopathy] Onset: 5 09-27-2024 Chronic Nonspecific chest pain (20 sources) Chest pain; Translations: [Chest pain, unspecified] Onset: 5 Episodic Nutritional deficiencies (1 source) Vitamin D deficiency, unspecified; Translations: [Vitamin D deficiency] Onset: 5 Chronic Occlusion or stenosis of precerebral arteries (3 sources) Carotid artery occlusion; Translations: [Occlusion and stenosis of unspecified carotid artery] 02-07-2024 Chronic Other aftercare (20 sources) Patient encounter status; Translations: [Other jail (current) drug therapy] Onset: 1 03-15-2021 Episodic Other aftercare (1 source) Post-discharge follow-up; Translations: [Encounter for follow-up examination after completed treatment for conditions other than malignant neoplasm] 01-01-2025 Episodic Other circulatory disease (12 sources) H/O: hypertension; Translations: [Personal history of other diseases of the circulatory system] 09-02-2022 Episodic Other circulatory disease (1 source) Personal history of other diseases of the circulatory system; Translations: [Personal history of other diseases of circulatory system] 09-10-2022 Episodic Other circulatory disease (12 sources) H/O: heart disorder; Translations: [Personal history [...] right ear] 04-20-2023 Episodic Other gastrointestinal disorders (20 sources) Hemorrhagic diarrhea ; Translations: [Diarrhea, unspecified] 09-02-2022 Episodic Other gastrointestinal disorders (1 source) Diarrhea, unspecified; Translations: [Diarrhea] 09-10-2022 Episodic Other gastrointestinal disorders (20 sources) History of lower gastrointestinal bleed; Translations: [Personal history of other diseases of the digestive system] 01-05-2023 Episodic Other gastrointestinal disorders (13 sources) Dysphagia; Translations: [Dysphagia, unspecified] 12-27-2024 Episodic Other gastrointestinal disorders (20 sources) History of gastrointestinal bleed; Translations: [Personal history of other diseases of the digestive system] 01-23-2025 Episodic Other gastrointestinal disorders (5 sources) Vascular ectasia of colon; Translations: [Angiodysplasia of colon without hemorrhage] Onset: 5 01-30-2025 Episodic Other gastrointestinal disorders (1 source) Dysphagia, unspecified; Translations: [Dysphagia, unspecified] Onset: Episodic Other hematologic conditions (2 sources) Protein electrophoresis abnormal; Translations: [Other specified abnormalities of plasma proteins] 08-30-2024 Episodic Other injuries and conditions due to external causes (20 sources) Angioedema; Translations: [Angioneurotic edema, subsequent encounter] 07-31-2024 Episodic Other liver diseases (20 sources) Hepatic fibrosis; Translations: [Liver fibrosis] Onset: 4 05-15-2024 Chronic Other liver diseases (1 source) Fatty (change of) liver, not elsewhere classified; Translations: [Fatty (change of) liver, not elsewhere classified] Onset: 5 Chronic Other lower respiratory disease (18 sources) Dyspnea; Translations: [Shortness of breath] 09-05-2023 Episodic Other lower respiratory disease (3 sources) Shortness of breath; Translations: [Shortness of breath] Onset: 5 09-05-2023 Episodic Other nervous system disorders (20 sources) Neuropathy; Translations: [Polyneuropathy, unspecified] 09-01-2023 Chronic Other nervous system disorders (5 sources) Polyneuropathy, unspecified; Translations: [Mononeuritis of unspecified [...] Episodic Other nutritional; endocrine; and metabolic disorders (16 sources) Body mass index 25-29 - overweight; Translations: [Overweight] 01-24-2025 Episodic Other screening for suspected conditions (not mental disorders or infectious disease) (20 sources) Decreased vitamin D; Translations: [Other specified abnormal findings of blood chemistry] Onset: 8 Resolved: 0 03-15-2021 Episodic Other skin disorders (16 sources) Tongue swelling; Translations: [Localized swelling, mass and lump, head] 03-29-2024 Episodic Other upper respiratory disease (11 sources) Expiratory stridor; Translations: [Stridor] 12-27-2024 Episodic Other upper respiratory disease (11 sources) Dysphonia; Translations: [Dysphonia] 12-27-2024 Episodic Dionne-; endo-; and myocarditis; cardiomyopathy (except that caused by tuberculosis or sexually transmitted disease) (20 sources) Heart valve disorder; Translations: [Endocarditis, valve unspecified] Onset: 3 05-18-2023 Chronic Residual codes; unclassified (1 source) Beer drinker; Translations: [Other specified health status] 12-23-2024 Episodic Spondylosis; intervertebral disc disorders; other back problems (19 sources) Degeneration of lumbar intervertebral disc; Translations: [Other intervertebral disc degeneration, lumbar region] 09-01-2023 Chronic Systemic lupus erythematosus and connective tissue disorders (1 source) Systemic involvement of connective tissue, unspecified; Translations: [Unspecified diffuse connective tissue disease (HCC)] Onset: Chronic Unclassified (1 source) Patient encounter status 11-01-2024 Unclassified (9 sources) Please call [phone] to schedule the follow up appt. Unclassified (8 sources) To schedule colonoscopy with Dr. Friend Unclassified (1 source) Eosinophilia, unspecified; Translations: [Eosinophilia, unspecified] Onset: 5 Past or Other Problems Problem Classification Problem Date Documented Da te Episodic/Chronic Acute posthemorrhagic anemia (20 sources) Acute posthemorrhagic anemia; Translations: [Acute posthemorrhagic anemia] Onset: 5 09-02-2022 Episodic Allergic reactions (1 source) Allergy, unspecified, initial encounter; Translations: [Allergy, unspecified, initial encounter] Onset: Episodic Deficiency and other anemia (1 source) Anemia, unspecified; Translations: [Anemia, unspecified] Onset: 5 Episodic E Codes: Adverse effects of medical drugs (17 sources) Adverse reaction to drug; Translations: [Adverse effect of unspecified drugs, medicaments and biological substances, initial encounter] Onset: 5 01-24-2025 Episodic Gastrointestinal hemorrhage (20 sources) Lower gastrointestinal hemorrhage; Translations: [Gastrointestinal hemorrhage, unspecified] Onset: 5 Episodic Heart valve disorders (20 sources) Systolic murmur; Translations: [Cardiac murmur, unspecified] Onset: 9 03-15-2021 Episodic Nutritional deficiencies (20 sources) Serum vitamin B12 low; Translations: [Deficiency of other specified B group vitamins] Onset: 3 05-18-2023 Episodic Other aftercare (1 source) Other intermediate frame tender (current) drug therapy; Translations: [Medication management] Onset: 1 Episodic Other connective tissue disease (20 sources) Atrophy of muscle of right shoulder; Translations: [Muscle wasting and atrophy, not elsewhere classified, right shoulder] Onset: 3 04-20-2023 Episodic Other connective tissue disease (20 sources) Muscle atrophy; Translations: [Muscle wasting and atrophy, not elsewhere classified, other site] Onset: 3 04-20-2023 Episodic Other diseases of kidney and ureters (20 sources) Kidney lesion; Translations: [Disorder of kidney and ureter, unspecified] Onset: 4 08-21-2023 Episodic Other gastrointestinal disorders (20 sources) Arteriovenous malformation of large intestine; Translations: [Angiodysplasia of colon without hemorrhage] Onset: 3 Episodic Other gastrointestinal disorders (20 sources) Occult blood in stools; Translations: [Other fecal abnormalities] Onset: 6 Resolved: 9 08-01-2018 Episodic Other gastrointestinal disorders (1 source) Personal history of other diseases of the digestive system; Translations: [Personal history of other diseases of the digestive system] Onset: 5 Episodic Other gastrointestinal disorders (1 source) Angiodysplasia of colon without hemorrhage; Translations: [Angiodysplasia of colon] Onset: 5 Episodic Other hematologic conditions (1 source) Other specified abnormalities of plasma proteins; Translations: [Abnormal SPEP] Onset: 5 Episodic Other inflammatory condition of skin (20 sources) Prurigo nodularis; 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] Onset: 1 03-15-2021 Episodic Other inflammatory condition of skin (20 sources) Inflammatory dermatosis; Translations: [Lichen simplex chronicus] Onset: 1 Resolved: 9 08-01-2018 Episodic Other injuries and conditions due to external causes (1 source) Angioneurotic edema, initial encounter; Translations: [Angioneurotic edema, initial encounter] Onset: 5 Episodic Other injuries and conditions due to external causes (1 source) Angioneurotic edema, subsequent encounter; Translations: [Angioedema, subsequent encounter] Onset: 5 Episodic Other liver diseases (20 sources) Alkaline phosphatase raised; Translations: [Abnormal levels of other serum enzymes] Onset: 8 03-15-2021 Episodic Other male genital disorders (20 sources) Disorder of prostate; Translations: [Disorder of prostate, unspecified] Onset: 1 03-15-2021 Episodic Other male genital disorders (1 source) Disorder of prostate, unspecified; Translations: [Prostate disorder] Onset: 1 Episodic Other nervous system disorders (20 sources) Impairment of balance; Translations: [Other abnormalities of gait and mobility] Onset: 3 04-20-2023 Episodic Other nervous system disorders (1 source) Unspecified abnormalities of gait and mobility; Translations: [Abnormality of gait] Onset: 5 Episodic Other nervous system disorders (1 source) Anesthesia of skin; Translations: [Numbness] Onset: 5 Episodic Other nutritional; endocrine; and metabolic disorders (20 sources) Hyperuricemia; Translations: [Hyperuricemia without signs of inflammatory arthritis and tophaceous disease] Onset: 5 Resolved: 0 08-12-2019 Episodic Other nutritional; endocrine; and metabolic disorders (1 source) Overweight; Translations: [Overweight] Onset: 5 Episodic Residual codes; unclassified (20 sources) Active living will ; Translations: [Other specified health status] Onset: 2 Episodic Residual codes; unclassified (1 source) Other specified health status; Translations: [Drinks beer] Onset: 5 Episodic Respiratory failure; insufficiency; arrest (adult) (20 sources) Acute respiratory failure; Translations: [Acute respiratory failure, unspecified whether with hypoxia or hypercapnia] Onset: 5 12-27-2024 Episodic Spondylosis; intervertebral disc disorders; other back problems (20 sources) Lumbosacral radiculopathy; Translations: [Radiculopathy, lumbosacral region] Onset: 3 07-10-2023 Episodic Superficial injury; contusion (20 sources) Abrasion of ear region; Translations: [Abrasion of left ear, initial encounter] Onset: 8 Resolved: 0 08-12-2019 Episodic Thyroid disorders (1 source) Disorder of thyroid, unspecified; Translations: [Thyroid dysfunction] Onset: 5 Episodic Urinary tract infections (17 sources) Acute cystitis; Translations: [Acute cystitis without hematuria] Onset: 5 01-24-2025 Episodic Results Test Name Value Interpretation Reference Range Facility CNNURSEon 06-02-2025 CNNURSE Normal [facility] Abdomen Single Viewon 2024 Abdomen Single View Normal [facility] Cardiology Visit Reporton Cardiology Visit Report Normal [facility] 25(OH)D3 SerPl-mCncon 2024 25-hydroxyvitamin D3 [Mass/Vol] 46.4 ng/mL Normal 31.0-80.0 [facility] Comment on above: Order Comment: Speci men Type: BLOOD SPECIMENOrdering Facility: [facility] Address: [address] [place] [address] Result Comment: Clas sification of 25 OH Vitamin D status:Deficiency/Insufficiency: < or = 30 ng/ml.Sufficiency/Optimal Levels: 31-80 ng/mLToxicity: > 100 ng/mL.Test performed by chemiluminescent immunoassay. Performed By: #### 1 989-3 ####[facility] LABCLIA [id number] [place] [address] [place] CNOVon 05-06-2025 CNOV Normal [facility] Free PSA [Mass/Vol]on 2024 Free PSA/Total PSA [Mass fraction] 27 % Normal [facility] Comment on above: Order Comment: Speci men Type: BLOOD SPECIMENOrdering Facility: [facility] Address: [address] [place] [address] Result Comment: Tota l and free PSA test methodology used is the Electrochemiluminescence Immunoassay by [employer]. Total or free PSA values by differing methodologies cannot be interchanged.The below table lists the probability of finding prostate cancer upon needle biopsy, for men 50 years or older and total PSA concentrations from 4.0-10.0 ng/mL. Results should be interpreted within the broader clinical context.Free PSA(%) 50-59 years 60-69 years >69 years <11 49.2% 57.5% 64.5% 11-18 26.9% 33.9% 40.8% 19-25 18.3% 23.9% 29.7% >25 9.1% 12.2% 15.8% Performed By: #### 1 9123-9, 3016-3, 19105-1, 3084-1 ####[facility] LABCLIA [id number] [place] [address] [place] Prostate specific Ag [Mass/Vol] 3.29 ng/mL High <2.60 [facility] Comment on above: Order Comment: Speci men Type: BLOOD SPECIMENOrdering Facility: [facility] Address: [address] [place] [address] Result Comment: Tota genaro PSA test methodology used is the Electrochemiluminescence Immunoassay by [employer]. Total PSA values by differing methodologies cannot be interchanged.For an individual patient, the significance of a [...] be individualized after consideration of all these factors.REFERENCE:Nilson Mancuso M.D., M.P.H., Lance Garber M.D., Ph.D., Patria Hartley M.D., Raqule Ahmadi, M.P.H., Lisseth Rush Sc.D. Effect of Verification Bias on Screening for Prostate Cancer by Measurement of Prostatic Specific Antigen. N Engl J Med 2003,349:335-42. Performed By: #### 1 9123-9, 3016-3, 63406-9, 3084-1 ####[facility] LABCLIA [id number] [address] OF [facility] HbA1c (Bld)on 05-06-2025 Average glucose Estimated from glycated hemoglobin (Bld) [Mass/Vol] 123 mg/dL Normal [facility] Comment on above: Order Comment: Medina peck Type: BLOOD SPECIMENOrdering Facility: [facility] Address: [address] [place] [address] Result Comment: eAG: (Estimated average glucose) is a calculated value from HgbA1c and is warehouse representative of the average blood glucose level in the last 2-3 month period. Performed By: #### 5 5454-3 ####[facility] LABIA [id number] [address] HbA1c (Bld) [Mass fraction] 5.9 % High 4.3-5.6 [facility] Comment on above: Order Comment: Medina peck Type: BLOOD SPECIMENOrdering Facility: [facility] Address: [address] [place] [address] Result Comment: Amer ican Diabetes Association guidelines indicate that patients with HgbA1c in the range 5.7-6.4% are at increased risk for development of diabetes, and intervention by lifestyle modification may be beneficial. HgbA1c greater or equal to 6.5% is considered diagnostic of diabetes. Performed By: #### 5 5454-3 ####[facility] LABCLIA [id number] [address] [place] LIPID PANEL, NONFASTINGon Cholesterol [Mass/Vol] 172 mg/dL Normal <200 [facility] Comment on above: Order Comment: Medina peck Type: BLOOD SPECIMENOrdering Facility: [facility] Address: [address] [place] [address] Result Comment: <200 mg/dL, Desirable 200-239 mg/dL, Borderline high>239 mg/dL, High Performed By: #### 2 132-9, LIPNF ####[facility] LABCLIA [id number] [address] OF [facility] HDL CHOLESTEROL, NF 42 mg/dL Normal >39 [facility] Comment on above: Order Comment: Speci men Type: BLOOD SPECIMENOrdering Facility: [facility] Address: [address] [place] [address] Result Comment: 40-5 9 mg/dL, Acceptable>59 mg/dL, High: Negative risk factor for coronary heart disease<40 mg/dL, Low: Positive risk factor for coronary heart disease Performed By: #### 2 132-9, LIPNF ####[facility] LABCLIA [id number] [address] LDL CHOLESTEROL CALCULATED, NF 107 mg/dL High <100 [facility] Comment on above: Order Comment: Speci men Type: BLOOD SPECIMENOrdering Facility: [facility] Address: [address] [place] [address] Result Comment: <100 mg/dL, Optimal 100-129 mg/dL, Near optimal/above optimal 130-159 mg/dL, Borderline high 160-189 mg/dL, High>189 mg/dL, Very highSecondary prevention optimal LDL Cholesterol levels are recommended to be <70 mg/dLLDL cholesterol is calculated using the Rogers-NIH equation. Performed By: #### 2 132-9, LIPNF ####[facility] LABCLIA [id number] [address] LDL/HDL RATIO, NF 2.55 mg/dL High <2.54 [facility] Comment on above: Order Comment: Speci men Type: BLOOD SPECIMENOrdering Facility: [facility] Address: [address] [place] [address] Result Comment: Refe rence:1. National Cholesterol Education Program ATP III Guideline At-A-Glance Quick Desk Reference: National Heart, Lung, and Blood Cameron. National Institutes of Health. 2001: NIH Publication No. 01-3305.2. An International Atherosclerosis Society position paper: global recommendations for the management of dyslipidemia: executive summary, Atherosclerosis. 2014: 232(2):410-413. Performed By: #### 2 132-9, LIPNF ####[facility] LABCLIA [id number] [place] [id number] [place] NON HDL CHOL, NF 130 mg/dL High <130 [facility] Comment on above: Order Comment: Speci men Type: BLOOD SPECIMENOrdering Facility: [facility] Address: [address] [place] [address] Result Comment: <130 mg/dL, Optimal 130-159 mg/dL, Near optimal/above optimal 160-189 mg/dL, Borderline high 190-219 mg/dL, High>219 mg/dL, Very highSecondary prevention optimal non HDL Cholesterol levels are recommended to be <100 mg/dL Performed By: #### 2 132-9, LIPNF ####[facility] LABCLIA [id number] [place] [address] [place] T CHOL/HDL RATIO NF 4.10 mg/dL Normal <5.10 [facility] Comment on above: Order Comment: Speci men Type: BLOOD SPECIMENOrdering Facility: [facility] Address: [address] [place] [address] Performed By: #### 2 132-9, LIPNF ####[facility] LABCLIA [id number] [place] [address] [place] TRIGLYCERIDES, NF 129 mg/dL Normal <150 [facility] Comment on above: Order Comment: Speci men Type: BLOOD SPECIMENOrdering Facility: [facility] Address: [address] [place] [address] Result Comment: <150 mg/dL, Normal 150-199 mg/dL, Borderline high 200-499 mg/dL, High>499 mg/dL, Very high Performed By: #### 2 132-9, LIPNF ####[facility] LABCLIA [id number] [place] [address] [place] VLDL CHOLESTEROL, NF 21 mg/dL Normal <30 [facility] Comment on above: Order Comment: Speci men Type: BLOOD SPECIMENOrdering Facility: [facility] Address: [address] [place] [address] Performed By: #### 2 132-9, LIPNF ####[facility] LABCLIA [id number] [place] [id number] [place] Magnesium SerPl-mCncon 05-06 Magnesium [Mass/Vol] 2.2 mg/dL [facility].3 [facility] Comment on above: Order Comment: Speci men Type: BLOOD SPECIMENOrdering Facility: [facility] Address: [address] [place] [address] Performed By: #### 1 9123-9, 3016-3, 29836-9, 3084-1 ####[facility] LABCLIA [id number] [place] [address] [place] TSH SerPl-aCncon 05-06-2025 TSH Qn 1.850 m[IU]/L Normal 0.270-4.200 [facility] Comment on above: Order Comment: Speci men Type: BLOOD SPECIMENOrdering Facility: [facility] Address: [address] [place] [address] Performed By: #### 1 9123-9, 3016-3, 30398-7, 3084-1 ####[facility] LABCLIA [id number] [address] [place] Urate SerPl-mCncon Urate [Mass/Vol] 8.4 mg/dL High 4.0-8.1 [facility] Comment on above: Order Comment: Speci men Type: BLOOD SPECIMENOrdering Facility: [facility] Address: [address] [place] [address] Performed By: #### 1 9123-9, 3016-3, 25793-2, 3084-1 ####[facility] LABIA [id number] [place] [address] [place] Urinalysis complete panel (U )on 05-06-2025 Bacteria LM.HPF (Urine sed) [#/Area] Negative Normal Negative [facility] Comment on above: Order Comment: Speci men Type: URINE SPECIMENOrdering Facility: [facility] Address: [address] [place] [address] Performed By: #### 2 4356-8 ####[facility] LABCLIA [id number] [place] [address] [place] Bilirubin Ql (U) Negative Normal Negative [facility] Comment on above: Order Comment: Speci men Type: URINE SPECIMENOrdering Facility: [facility] Address: [address] [place] [address] Performed By: #### 2 4356-8 ####[facility] LABCLIA [id number] [place] [address] [place] CALCIUM OXALATE CRYSTALS (UA) Few Abnormal None Seen [facility] Comment on above: Order Comment: Speci men Type: URINE SPECIMENOrdering Facility: [facility] Address: [address] [place] [address] Performed By: #### 2 4356-8 ####[facility] LABCLIA [id number] [place] [address] [place] Clarity (Unsp spec) Cloudy Abnormal Clear [facility] Comment on above: Order Comment: Speci men Type: URINE SPECIMENOrdering Facility: [facility] Address: [address] [place] [address] Performed By: #### 2 4356-8 ####[facility] LABCLIA [id number] [address] [place] Color (U) Dark Yellow Abnormal Yellow [facility] [facility] Comment on above: Order Comment: Speci men Type: URINE SPECIMENOrdering Facility: [facility] Address: [address] [place] [address] Performed By: #### 2 4356-8 ####[facility] LABCLIA [id number] [place] [address] [place] Epithelial cells LM.HPF (Urine sed) [#/Area] None Seen Normal [facility] Comment on above: Order Comment: Speci men Type: URINE SPECIMENOrdering Facility: [facility] Address: [address] [place] [address] Performed By: #### 2 4356-8 ####[facility] LABCLIA [id number] [place] [address] [place] Glucose Test strip (U) [Mass/Vol] Negative Normal Negative [facility] Comment on above: Order Comment: Speci men Type: URINE SPECIMENOrdering Facility: [facility] Address: [address] [place] [address] Performed By: #### 2 4356-8 ####[facility] LABCLIA [id number] [place] [address] [place] Hemoglobin Ql (U) 3+ Abnormal Negative [facility] Comment on above: Order Comment: Speci men Type: URINE SPECIMENOrdering Facility: [facility] Address: [address] [place] [address] Performed By: #### 2 4356-8 ####[facility] LABCLIA [id number] [address] [place] Hyaline casts (Urine sed) [#/Area] 1-3 /LPF Abnormal 0 /LPF [facility] Comment on above: Order Comment: Speci men Type: URINE SPECIMENOrdering Facility: [facility] Address: [address] [place] [address] Performed By: #### 2 4356-8 ####[facility] LABCLIA [id number] [address] [place] Ketones Ql (U) Trace Abnormal Negative [facility] Comment on above: Order Comment: Speci men Type: URINE SPECIMENOrdering Facility: [facility] Address: [address] [place] [address] Performed By: #### 2 4356-8 ####[facility] LABCLIA [id number] [address] [place] Leukocyte esterase Test strip Ql (U) 1+ Abnormal Negative [facility] Comment on above: Order Comment: Speci men Type: URINE SPECIMENOrdering Facility: [facility] Address: [address] [place] [address] Performed By: #### 2 4356-8 ####[facility] LABCLIA [id number] [place] [address] [place] Nitrite Ql (U) Negative Normal Negative [facility] Comment on above: Order Comment: Speci men Type: URINE SPECIMENOrdering Facility: [facility] Address: [address] [place] [address] Performed By: #### 2 4356-8 ####[facility] LABCLIA [id number] [place] [address] [place] pH (U) 5.5 [pH] Normal 5.0-8.0 [facility] Comment on above: Order Comment: Speci men Type: URINE SPECIMENOrdering Facility: [facility] Address: [address] [place] [address] Performed By: #### 2 4356-8 ####[facility] LABIA [id number] [place] [address] [place] Protein (U) [Mass/Vol] 2+ Abnormal Negative [facility] Comment on above: Order Comment: Speci men Type: URINE SPECIMENOrdering Facility: [facility] Address: [address] [place] [address] Performed By: #### 2 4356-8 ####[facility] LABIA [id number] [place] [address] [place] RBC LM.HPF (Urine sed) [#/Area] /[HPF] Abnormal 0-2 /HPF [facility] Comment on above: Order Comment: Speci men Type: URINE SPECIMENOrdering Facility: [facility] Address: [address] [place] [address] Performed By: #### 2 4356-8 ####[facility] LABIA [id number] [address] [place] Specific gravity (U) [Rel density] 1.020 Normal 1.005-1.030 [facility] Comment on above: Order Comment: Speci men Type: URINE SPECIMENOrdering Facility: [facility] Address: [address] [place] [address] Performed By: #### 2 4356-8 ####[facility] LABIA [id number] [place] [address] [place] Urobilinogen Ql (U) 0.2 EU/dL Normal 0.2-1.0 EU/dL [facility] Comment on above: Order Comment: Speci men Type: URINE SPECIMENOrdering Facility: [facility] Address: [address] [place] [address] Performed By: #### 2 4356-8 ####[facility] LABIA [id number] [place] [address] [place] WBC LM.HPF (Urine sed) [#/Area] 6-10 /HPF Abnormal 0-5 /HPF [facility] Comment on above: Order Comment: Speci men Type: URINE SPECIMENOrdering Facility: [facility] Address: [address] [place] [address] Performed By: #### 2 4356-8 ####[facility] [id number] [place] [address] [place] Vit B12 SerPl-ncon 025 Cobalamin (Vitamin B12) [Mass/Vol] 508 pg/mL Normal 232-1245 [facility] Comment on above: Order Comment: Speci men Type: BLOOD SPECIMENOrdering Facility: [facility] Address: [address] [place] [address] Performed By: #### 2 132-9, LIPNF ####[facility] [id number] [place] [address] [place] CNOVon 04-30-2025 CNOV Normal [facility] CNPNon 04-28-2025 CNPN Normal [facility] B2 Microglob SerPl-mCncon Ppuk-2-Bxypnekdbsnki [Mass/Vol] 2.9 ug/mL Normal <3.1 [facility] Comment on above: Order Comment: Speci men Type: BLOOD SPECIMENOrdering Facility: [facility] Address: [address] [place] [address] Result Comment: Beta -2 Microglobulin test is performed using the [employer] immunoturbidimetric method. Results obtained with different methods or kits cannot be used interchangeably. Performed By: #### 2 885-2, 1952- ####[facility] LABCLIA [id number] [place] [address] [place] CBC W Auto Differential pane l (Bld)on 04-24-2025 Basophils (Bld) [#/Vol] 0.06 10*3/uL Normal <0.11 [facility] Comment on above: Order Comment: Speci men Type: BLOOD SPECIMENOrdering Facility: [facility] Address: [address] [place] [address] Performed By: #### 5 7021-8 ####[facility] [id number] [place] [address] [place] Basophils/100 WBC (Bld) 1.0 % Normal [facility] Comment on above: Order Comment: Speci men Type: BLOOD SPECIMENOrdering Facility: [facility] Address: [address] [place] [address] Performed By: #### 5 7021-8 ####[facility] [id number] [place] [address] [place] Differential cell count method Nom (Bld) Auto Normal [facility] Comment on above: Order Comment: Speci men Type: BLOOD SPECIMENOrdering Facility: [facility] Address: [address] [place] [address] Performed By: #### 5 7021-8 ####[facility] [id number] [place] [address] [place] Eosinophils (Bld) [#/Vol] 0.73 10*3/uL High <0.46 [facility] Comment on above: Order Comment: Speci men Type: BLOOD SPECIMENOrdering Facility: [facility] Address: [address] [place] [address] Performed By: #### 5 7021-8 ####[facility] LAURAA [id number] [place] [address] [place] Eosinophils/100 WBC (Bld) 11.6 % Normal [facility] Comment on above: Order Comment: Speci men Type: BLOOD SPECIMENOrdering Facility: [facility] Address: [address] [place] [address] Performed By: #### 5 7021-8 ####[facility] GUSTAVOBATHMICHELLECELSOA [id number] [place] [address] [place] Erythrocyte distribution width (RBC) [Ratio] 12.3 % Normal 11.5-15.0 [facility] Comment on above: Order Comment: Speci men Type: BLOOD SPECIMENOrdering Facility: [facility] Address: [address] [place] [address] Performed By: #### 5 7021-8 ####[facility] H[facility]PITALELENOA [id number] [place] [address] [place] Hematocrit (Bld) [Volume fraction] 42.7 % Normal 39.0-51.0 [facility] Comment on above: Order Comment: Speci men Type: BLOOD SPECIMENOrdering Facility: [facility] Address: [address] [place] [address] Performed By: #### 5 7021-8 ####[facility] GUSTAVOBATHMICHELLELIA [id number] [place] [address] [place] Hemoglobin (Bld) [Mass/Vol] 15.0 g/dL Normal 13.0-17.0 [facility] Comment on above: Order Comment: Speci men Type: BLOOD SPECIMENOrdering Facility: [facility] Address: [address] [place] [address] Performed By: #### 5 7021-8 ####[facility]ITALLIA [id number] [place] [address] [place] Immature granulocytes (Bld) [#/Vol] 10*3/uL Normal <0.10 [facility] Comment on above: Order Comment: Speci men Type: BLOOD SPECIMENOrdering Facility: [facility] Address: [address] [place] [address] Performed By: #### 5 7021-8 ####[facility] [id number] [place] [address] [place] Immature granulocytes/100 WBC (Bld) 0.2 % Normal [facility] Comment on above: Order Comment: Speci men Type: BLOOD SPECIMENOrdering Facility: [facility] Address: [address] [place] [address] Performed By: #### 5 7021-8 ####[facility] [id number] [place] [address] [place] Lymphocytes (Bld) [#/Vol] 0.92 10*3/uL Low 1.00-4.00 [facility] Comment on above: Order Comment: Speci men Type: BLOOD SPECIMENOrdering Facility: [facility] Address: [address] [place] [address] Performed By: #### 5 7021-8 ####[facility] [id number] [place] [address] [place] Lymphocytes/100 WBC (Bld) 14.6 % Normal [facility] Comment on above: Order Comment: Speci men Type: BLOOD SPECIMENOrdering Facility: [facility] Address: [address] [place] [address] Performed By: #### 5 7021-8 ####[facility] [id number] [place] [address] [place] MCH (RBC) [Entitic mass] 34.5 pg High 26.0-34.0 [facility] Comment on above: Order Comment: Speci men Type: BLOOD SPECIMENOrdering Facility: [facility] Address: [address] [place] [address] Performed By: #### 5 7021-8 ####[facility] [id number] [place] [address] [place] MCHC (RBC) [Mass/Vol] 35.1 g/dL Normal 30.5-36.0 [facility] Comment on above: Order Comment: Speci men Type: BLOOD SPECIMENOrdering Facility: [facility] Address: [address] [place], [place] [address] Performed By: #### 5 7021-8 ####[facility] [id number] [place] [address] [place] MCV (RBC) [Entitic vol] 98.2 fL Normal 80.0-100.0 [facility] Comment on above: Order Comment: Speci men Type: BLOOD SPECIMENOrdering Facility: [facility] Address: [address] [place] [address] Performed By: #### 5 7021-8 ####[facility] [id number] [place] [address] [place] Monocytes (Bld) [#/Vol] 0.81 10*3/uL Normal <0.87 [facility] Comment on above: Order Comment: Speci men Type: BLOOD SPECIMENOrdering Facility: [facility] Address: [address] [place] [address] Performed By: #### 5 7021-8 ####[facility] [id number] [place] [address] [place] Monocytes/100 WBC (Bld) 12.8 % Normal [facility] Comment on above: Order Comment: Speci men Type: BLOOD SPECIMENOrdering Facility: [facility] Address: [address] [place] [address] Performed By: #### 5 7021-8 ####[facility] MILLTOWNCLIA [id number] [place] [address] [place] Neutrophils (Bld) [#/Vol] 3.78 10*3/uL Normal 1.45-7.50 [facility] Comment on above: Order Comment: Speci men Type: BLOOD SPECIMENOrdering Facility: [facility] Address: [address] [place] [address] Performed By: #### 5 7021-8 ####[facility] MILLWNCLIA [id number] [place] [address] [place] Neutrophils/100 WBC (Bld) 59.8 % Normal [facility] Comment on above: Order Comment: Speci men Type: BLOOD SPECIMENOrdering Facility: [facility] Address: [address] [place] [address] Performed By: #### 5 7021-8 ####[facility]ITALWNCLIA [id number] [place] [address] [place] Nucleated RBC (Bld) [#/Vol] 10*3/uL Normal <0.01 [facility] Comment on above: Order Comment: Speci men Type: BLOOD SPECIMENOrdering Facility: [facility] Address: [address] [place] [address] Performed By: #### 5 7021-8 ####[facility] MILLTOWNCLIA [id number] [place] [address] [place] Nucleated RBC/100 WBC (Bld) [Ratio] 0.0 /100 WBC Normal [facility] Comment on above: Order Comment: Speci men Type: BLOOD SPECIMENOrdering Facility: [facility] Address: [address] [place] [address] Performed By: #### 5 7021-8 ####[facility] MILLBATHNCLIA [id number] [place] [address] [place] Platelet mean volume (Bld) [Entitic vol] 9.8 fL Normal 9.0-12.7 [facility] Comment on above: Order Comment: Speci men Type: BLOOD SPECIMENOrdering Facility: [facility] Address: [address] [place] [address] Performed By: #### 5 7021-8 ####[facility]ALL[facility] [id number] [place] [address] [place] Platelets (Bld) [#/Vol] 215 10*3/uL Normal 150-400 [facility] Comment on above: Order Comment: Speci men Type: BLOOD SPECIMENOrdering Facility: [facility] Address: [address] [place] [address] Performed By: #### 5 7021-8 ####[facility] [id number] [place] [address] [place] RBC (Bld) [#/Vol] 4.35 10*6/uL Normal 4.20-6.00 [facility] Comment on above: Order Comment: Speci men Type: BLOOD SPECIMENOrdering Facility: [facility] Address: [address] [place] [address] Performed By: #### 5 7021-8 ####[facility]ITALLIA [id number] [place] [address] [place] WBC (Bld) [#/Vol] 6.31 10*3/uL Normal 3.70-11.00 [facility] Comment on above: Order Comment: Speci men Type: BLOOD SPECIMENOrdering Facility: [facility] Address: [address] [place] [address] Performed By: #### 5 7021-8 ####[facility]ITALNCLIA [id number] [place] [address] [place] CNOVSPon 04-24-2025 CNOVSP Normal [facility] Comprehensive metabolic 2000 panelon 04-24-2025 Albumin [Mass/Vol] 4.1 g/dL Normal 3.9-4.9 [facility] Comment on above: Order Comment: Speci men Type: BLOOD SPECIMENOrdering Facility: [facility] Address: [address] [place] [address] Performed By: #### 2 532-0, 90690-2 ####[facility] MILLWNCLIA [id number] [place] [address] [place] ALP [Catalytic activity/Vol] 142 U/L High 38-113 [facility] Comment on above: Order Comment: Speci men Type: BLOOD SPECIMENOrdering Facility: [facility] Address: [address] [place] [address] Performed By: #### 2 532-0, 68539-1 ####[facility] HOSPITALMICHELLELIA [id number] [place] [address] [place] ALT [Catalytic activity/Vol] 26 U/L Normal 10-54 [facility] Comment on above: Order Comment: Speci men Type: BLOOD SPECIMENOrdering Facility: [facility] Address: [address] [place] [address] Performed By: #### 2 532-0, 46022-0 ####[facility]ITALL[facility] [id number] [place] [address] [place] Anion gap [Moles/Vol] 14 mmol/L Normal 8-15 [facility] Comment on above: Order Comment: Speci men Type: BLOOD SPECIMENOrdering Facility: [facility] Address: [address] [place] [address] Performed By: #### 2 532-0, 25050-1 ####[facility] HOSPITALNCLIA [id number] [place] [address] [place] AST [Catalytic activity/Vol] 37 U/L Normal 14-40 [facility] Comment on above: Order Comment: Speci men Type: BLOOD SPECIMENOrdering Facility: [facility] Address: [address] [place] [address] Performed By: #### 2 532-0, 52128-6 ####[facility] HOSPITALNCCELSOA [id number] [place] [address] [place] Bilirubin [Mass/Vol] 0.6 mg/dL Normal 0.2-1.3 [facility] Comment on above: Order Comment: Speci men Type: BLOOD SPECIMENOrdering Facility: [facility] Address: [address] [place] [address] Performed By: #### 2 532-0, 40156-7 ####[facility] HOSPITALJESUS [id number] [place] [address] [place] Calcium [Mass/Vol] 9.6 mg/dL Normal 8.5-10.2 [facility] Comment on above: Order Comment: Speci men Type: BLOOD SPECIMENOrdering Facility: [facility] Address: [address] [place] [address] Performed By: #### 2 532-0, 21922-3 ####[facility] HOSPITALJOHN [id number] [place] [address] [place] Chloride [Moles/Vol] 104 mmol/L Normal 98-107 [facility] Comment on above: Order Comment: Speci men Type: BLOOD SPECIMENOrdering Facility: [facility] Address: [address] [place] [address] Performed By: #### 2 532-0, 51296-1 ####[facility] HOSPITALNCLIA [id number] [place] [address] [place] CO2 [Moles/Vol] 19 mmol/L Low 22-30 [facility] Comment on above: Order Comment: Speci men Type: BLOOD SPECIMENOrdering Facility: [facility] Address: [address] [place] [address] Performed By: #### 2 532-0, 63539-2 ####[facility] GUSTAVOESSENTIA HEALTHAbdoulaye [id number] [place] [address] [place] Creatinine [Mass/Vol] 0.71 mg/dL Low 0.73-1.22 [facility] Comment on above: Order Comment: Speci men Type: BLOOD SPECIMENOrdering Facility: [facility] Address: [address] [place] [address] Performed By: #### 2 532-0, 31727-2 ####[facility] [id number] [place] [address] [place] eGFRcr SerPlBld CKD-EPI 2020 96 mL/min/1.73m??? Normal >=60 [facility] Comment on above: Order Comment: Speci men Type: BLOOD SPECIMENOrdering Facility: [facility] Address: [address] [place] [address] Result Comment: Micaela mated Glomerular Filtration Rate [...] accurately reflect actual GFR. Performed By: #### 2 532-0, 51983-2 ####[facility]PITALLIA [id number] [place] [address] [place] Glucose [Mass/Vol] 131 mg/dL High 74-99 [facility] Comment on above: Order Comment: Speci men Type: BLOOD SPECIMENOrdering Facility: [facility] Address: [address] [place] [address] Result Comment: The [place] [employer] (ADA) provides guidance for cutoff values for fasting glucose and random glucose. The ADA defines fasting as no caloric intake for at least 8 hours. Fasting plasma glucose results between 100 to 125 mg/dL indicate increased risk for diabetes (prediabetes).Fasting plasma glucose results greater than or equal to 126 mg/dL meet the criteria for diagnosis of diabetes. In the absence of unequivocal hyperglycemia, results should be confirmed by repeat testing. In a patient with classic symptoms of hyperglycemia or hyperglycemic crisis, random plasma glucose results greater than or equal to 200 mg/dL meet the criteria for diagnosis of diabetes.Reference: Standards of Medical Care in Diabetes 2016, [place] [employer]. Diabetes Care. 2016.39(Suppl 1). Performed By: #### 2 532-0, 22039-9 ####[facility] [id number] [place] [address] [place] Potassium [Moles/Vol] 4.3 mmol/L Normal 3.7-5.1 [facility] Comment on above: Order Comment: Speci men Type: BLOOD SPECIMENOrdering Facility: [facility] Address: [address] [place] [address] Performed By: #### 2 532-0, 55175-4 ####[facility] [id number] [place] [address] [place] Protein [Mass/Vol] 7.3 g/dL Normal 6.3-8.0 [facility] Comment on above: Order Comment: Speci men Type: BLOOD SPECIMENOrdering Facility: [facility] Address: [address] [place] [address] Performed By: #### 2 532-0, 29590-5 ####[facility] [id number] [place] [address] [place] Sodium [Moles/Vol] 137 mmol/L Normal 136-144 [facility] Comment on above: Order Comment: Speci men Type: BLOOD SPECIMENOrdering Facility: [facility] Address: [address] [place] [address] Performed By: #### 2 532-0, 90824-7 ####[facility] HOSPITALLIA [id number] [place] [address] [place] Urea nitrogen [Mass/Vol] 8 mg/dL Low 9-24 [facility] Comment on above: Order Comment: Speci men Type: BLOOD SPECIMENOrdering Facility: [facility] Address: [address] [place] [address] Performed By: #### 2 532-0, 50167-1 ####[facility] [id number] [place] [address] [place] IMMUNOFIXATION SCREEN, SERUM on 04-24-2025 MPA RESULT No M protein is identified. Normal No M protein is identified. [facility] Comment on above: Order Comment: Speci men Type: BLOOD SPECIMENOrdering Facility: [facility] Address: [address] [place] [address] Performed By: #### I FES ####[facility] LABCLIA [id number] [place] [address] [place] STAFF REVIEW (MPA) Reviewed by Lizbeth navarrete M.D. Normal [facility] Comment on above: Order Comment: Speci men Type: BLOOD SPECIMENOrdering Facility: [facility] Address: [address] [place] [address] Performed By: #### I FES ####[facility] LABCLIA [id number] [place] [address] [place] IMMUNOGLOBULINS,IGG,IGA,IGMo n 04-24-2025 IgA [Mass/Vol] 316 mg/dL Normal 70-400 [facility] Comment on above: Order Comment: Speci men Type: BLOOD SPECIMENOrdering Facility: [facility] Address: [address] [place] [address] Performed By: #### S ERIMM ####[facility] LABCLIA [id number] [address] [id number], [place] [address] [place] IgG [Mass/Vol] 1427 mg/dL Normal 700-1600 [facility] Comment on above: Order Comment: Speci men Type: BLOOD SPECIMENOrdering Facility: [facility] Address: [address] [place] [address] Performed By: #### S ERIMM ####[facility] LABCLIA [id number] [place] [address] [place] IgM [Mass/Vol] 39 mg/dL Low 40-230 [facility] Comment on above: Order Comment: Speci men Type: BLOOD SPECIMENOrdering Facility: [facility] Address: [address] [place] [address] Performed By: #### S ERIMM ####[facility] LABCLIA [id number] [place] [address] [place] KAPPA/NEUMANN,FREE,SERon 2024 Immunoglobulin light chains.kappa.free (S) [Mass/Vol] 32.7 mg/L High 3.3-19.4 [facility] Comment on above: Order Comment: Speci men Type: BLOOD SPECIMENOrdering Facility: [facility] Address: [address] [place] [address] Result Comment: Rare ly, increased serum free light chains levels may not be detected or accurately quantified due to prozone phenomenon or in high viscosity samples using this immunoturbidimetric assay. Correlation with other laboratory results and clinical findings is recommended.The [place] Free Light Chain was performed using the Binding Site Optilite immunoturbidimetric method. Result obtained with different assay methods or kits cannot be used interchangeably. Performed By: #### K LFRS ####[facility] LABCLIA [id number] [place] [address] [place] Immunoglobulin light chains.kappa/Immunogl obulin light chains.lambda (S) [Mass ratio] 1.06 Normal 0.26-1.65 [facility] Comment on above: Order Comment: Speci men Type: BLOOD SPECIMENOrdering Facility: [facility] Address: [address] [place], [place] [id number] Performed By: #### K LFRS ####[facility] LABCLIA [id number] [place] [address] [place] Immunoglobulin light chains.lambda.free [Mass/Vol] 30.9 mg/L High 5.7-26.3 [facility] Comment on above: Order Comment: Speci men Type: BLOOD SPECIMENOrdering Facility: [facility] Address: [address] [place] [address] Result Comment: Rare ly, increased serum free light chains levels may not be detected or accurately quantified due to prozone phenomenon or in high viscosity samples using this immunoturbidimetric assay. Correlation with other laboratory results and clinical findings is recommended.The [place] Free Light Chain was performed using the Binding Site Optilite immunoturbidimetric method. Result obtained with different assay methods or kits cannot be used interchangeably. Performed By: #### K LFRS ####[facility] LABCLIA [id number] [place] [address] [place] LDH SerPl-cCncon 04-24-2025 LDH [Catalytic activity/Vol] 161 U/L Normal 135-225 [facility] Comment on above: Order Comment: Speci men Type: BLOOD SPECIMENOrdering Facility: [facility] Address: [address] [place] [address] Result Comment: Hemo lysis present. The origin of the hemolysis, in vitro versus an in vivo hemolytic process, cannot be distinguished via this assay alone. In vitro hemolysis may lead to non-physiological (spurious) elevation in lactate dehydrogenase (LDH) results. Theresult should be interpreted in context of the clinical setting and other test results. Suggest reorder as clinically indicated. Performed By: #### 2 532-0, 34792-7 ####[facility] YAQUELIN [facility] [id number] [place] [address] [place] MONOCLONAL PROT UR W/INTERPo n 04-24-2025 INTERPRETATION (PA) Normal [facility] Comment on above: Order Comment: Speci men Type: URINE SPECIMENOrdering Facility: [facility] Address: [address] [place] [address] Performed By: #### U RMPA ####[facility] LABIA [id number] [address] STAFF REVIEW (UMPA) Reviewed by Lizbeth navarrete M.D. Normal [facility] Comment on above: Order Comment: Speci men Type: URINE SPECIMENOrdering Facility: [facility] Address: [address] [place] [address] Performed By: #### U RMPA ####[facility] [id number] [place] [address] [place] UMPA RESULT A poorly defined reg ion of restricted mobility is present that may represent an M protein. Abnormal No M protein is identified. [facility] Comment on above: Order Comment: Speci men Type: URINE SPECIMENOrdering Facility: [facility] Address: [address] [place] [address] Performed By: #### U RMPA ####[facility] [id number] [place] [address] [place] PROTEIN ELECTROPHORESIS SERU M (P)on 04-24-2025 Albumin [Mass/Vol] 3.94 g/dL Normal 3.43-5.41 [facility] Comment on above: Order Comment: Speci men Type: BLOOD SPECIMENOrdering Facility: [facility] Address: [address] [place] [address] Performed By: #### L [id number] ####[facility] [id number] [place] [id number] [place] Alpha 1 globulin Elph [Mass/Vol] 0.31 g/dL Normal 0.18-0.43 [facility] Comment on above: Order Comment: Speci men Type: BLOOD SPECIMENOrdering Facility: [facility] Address: [address] [place] [address] Performed By: #### L [id number] ####[facility] LABCLIA [id number] [place] [address] [place] Alpha 2 globulin Elph [Mass/Vol] 0.80 g/dL Normal 0.42-0.98 [facility] Comment on above: Order Comment: Speci men Type: BLOOD SPECIMENOrdering Facility: [facility] Address: [address] [place] [address] Performed By: #### L [id number] ####[facility] LABIA [id number] [place] [address] [place] Beta globulin Elph [Mass/Vol] 0.89 g/dL Normal 0.61-1.17 [facility] Comment on above: Order Comment: Speci men Type: BLOOD SPECIMENOrdering Facility: [facility] Address: [address] [place] [address] Performed By: #### L [id number] ####[facility] LABIA [id number] [address] [place] Gamma globulin Elph [Mass/Vol] 1.25 g/dL Normal 0.53-1.51 [facility] Comment on above: Order Comment: Speci men Type: BLOOD SPECIMENOrdering Facility: [facility] Address: [address] [place] [address] Performed By: #### L [id number] ####[facility] LABIA [id number] [address] [place] M-PROTEIN LOCATION Normal [facility] Comment on above: Order Comment: Speci men Type: BLOOD SPECIMENOrdering Facility: [facility] Address: [address] [place] [address] Result Comment: Not Applicable. Performed By: #### L [id number] ####[facility] LABIA [id number] [place] [address] [place] Protein Fractions [Interp] No definitive M protein is identified on protein electrophoresis. Normal No definitive M protein is identified on protein electrophore sis. [facility] Comment on above: Order Comment: Speci men Type: BLOOD SPECIMENOrdering Facility: [facility] Address: [address] [place] [address] Performed By: #### L [id number] ####[facility] LABIA [id number] [place] [address] [place] Protein.monoclonal Elph [Mass/Vol] 0.00 g/dL Normal <=0.00 [facility] Comment on above: Order Comment: Speci men Type: BLOOD SPECIMENOrdering Facility: [facility] Address: [address] [place] [address] Performed By: #### L [id number] ####[facility] LABIA [id number] [place] [address] [place] SPE STAFF REVIEW Reviewed by Lizbeth navarrete M.D. Normal [facility] Comment on above: Order Comment: Speci men Type: BLOOD SPECIMENOrdering Facility: [facility] Address: [address] [place] [address] Performed By: #### L [id number] ####[facility] [id number] [place] [address] [place] Prot SerPl-mCncon 04-24-2025 Protein [Mass/Vol] 7.2 g/dL Normal 6.3-8.0 [facility] Comment on above: Order Comment: Speci men Type: BLOOD SPECIMENOrdering Facility: [facility] Address: [address] [place] [address] Performed By: #### 2 885-2, 1951-07 ####[facility] LABIA [id number] [place] [address] [place] Prot Ur-mCncon 04-24-2025 Protein (U) [Mass/Vol] 33 mg/dL High 0-20 [facility] Comment on above: Order Comment: Speci men Type: URINE SPECIMENOrdering Facility: [facility] Address: [address] [place] [address] Performed By: #### 2 888-6 ####[facility] LABIA [id number] [place] [address] [place] URINE PROTEIN ELECTROPHORESI S RANDOM (P)on 04-24-2025 Albumin Elph (U) [Mass fraction] 50.87 % Normal [facility] Comment on above: Order Comment: Speci men Type: URINE SPECIMENOrdering Facility: [facility] Address: [address] [place] [address] Performed By: #### L [id number] ####[facility] LABIA [id number] [place] [address] [place] Alpha 1 globulin Elph (U) [Mass fraction] 1.98 % Normal [facility] Comment on above: Order Comment: Speci men Type: URINE SPECIMENOrdering Facility: [facility] Address: [address] [place] [address] Performed By: #### L [id number] ####[facility] LABIA [id number] [place] [address] [place] Alpha 2 globulin Elph (U) [Mass fraction] 9.56 % Normal [facility] Comment on above: Order Comment: Speci men Type: URINE SPECIMENOrdering Facility: [facility] Address: [address] [place] [address] Performed By: #### L [id number] ####[facility] LABCLIA [id number] [place] [id number] [place] Beta globulin Elph (U) [Mass fraction] 21.74 % Normal [facility] Comment on above: Order Comment: Speci men Type: URINE SPECIMENOrdering Facility: [facility] Address: [address] [place] [address] Performed By: #### L [id number] ####[facility] LABCLIA [id number] [address] [place] Gamma globulin Elph (U) [Mass fraction] 15.86 % Normal [facility] Comment on above: Order Comment: Speci men Type: URINE SPECIMENOrdering Facility: [facility] Address: [address] [place] [address] Performed By: #### L [id number] ####[facility] LABIA [id number] [address] [place] Protein Fractions Elph Kamaljit (U) [Interp] No definitive M protein is identified on protein electrophoresis. Normal No definitive M protein is identified on protein electrophore sis. [facility] Comment on above: Order Comment: Speci men Type: URINE SPECIMENOrdering Facility: [facility] Address: [address] [place] [address] Performed By: #### L [id number] ####[facility] [id number] [address] [place] STAFF REVIEW (URINE ELECTRO) Reviewed by Lizbeth Melendez M.D. Normal [facility] Comment on above: Order Comment: Speci men Type: URINE SPECIMENOrdering Facility: [facility] Address: [address] [place] [address] Performed By: #### L [id number] ####[facility] [id number] [place] [address] [place] Colonoscopy Reporton 025 Colonoscopy Report Normal [facility] MR/OP.PROVATon 03-20-2025 MR/OP.PROVAT Normal [facility] MR/POSTOP.ANEon 03-20-2025 MR/POSTOP.ANE Normal [facility] MR/[id number] 03-20-2025 MR/POSTOPAN2 Normal [facility] Surgery Specimen Level Tamara 03-20-2025 Surgery Specimen Level IV Normal [facility] Comment on above: Performed By: #### P SUIV ####[facility] [address] [place], [place], [id number] MR/PAT.ANEon 03-18-2025 MR/PAT.ANE Normal [facility] ABD Limited w/ Elastographyo n 03-10-2025 ABD Limited w/ Elastography Normal [facility] Absolute lymphocyte countOrd ered By: Shubham Blanco on 03-10-2025 Lymphocytes Auto (Unsp spec) [#/Vol] 0.76 10*3/uL Low 0.83-4.51 [facility] Absolute neutrophil countOrd ered By: Shubham Blanco on 03-10-2025 Neutrophils (Bld) [#/Vol] 3.4 10*3/uL 2.0-7.7 [facility] Anion gap in Serum or Plasma Ordered By: Shubham Blanco on 03-10-2025 Anion gap [Moles/Vol] 10 mmol/L 5-15 [facility] Automated lymphocyte count a s percentage of total leukocytesOrdered By: Shubham Blanco on 03-10-2025 Lymphocytes/100 WBC Auto (Unsp spec) 11.9 % Low 19-41 [facility] BUN/creatinine ratioOrdered By: Shubhamlarry Blanco on 03-10-2025 Urea nitrogen/Creatinine [Mass ratio] 12.7 mg/mg 10-20 [facility] Basophil percentageOrdered B y: Shubham Blanco on 03-10-2025 Basophils/100 WBC (Bld) 1.1 % High 0-1 [facility] Bilirubin, totalOrdered By: Shubham Blanco on 03-10-2025 Bilirubin [Mass/Vol] 0.78 mg/dL 0.00-1.30 [facility] CBC W/Diff, Automatedon 02-21 Absolute Lymph 0.76 X10 3/uL Low 0.83-4.51 [facility] Comment on above: Performed By: #### L 300.3900, L503.0106, L100.0100, L503.6550, L503.6030, L500.4050 ####[facility] [address] [place], [address] Absolute Neut 3.4 X10 3/uL Normal 2.0-7.7 [facility] Comment on above: Performed By: #### L 300.3900, L503.0106, L100.0100, L503.6550, L503.6030, L500.4050 ####[facility] [address] [place], [address] Basophils/100 WBC (Bld) 1.1 % High 0-1 [facility] Comment on above: Performed By: #### L 300.3900, L503.0106, L100.0100, L503.6550, L503.6030, L500.4050 ####[facility] [address] [place], [address] Eosinophils/100 WBC (Bld) 18.0 % High 0-5 [facility] Comment on above: Performed By: #### L 300.3900, L503.0106, L100.0100, L503.6550, L503.6030, L500.4050 ####[facility] [address] [place], [address] Erythrocyte distribution width (RBC) [Ratio] 12.9 % Normal 11.6-14.6 [facility] Comment on above: Performed By: #### L 300.3900, L503.0106, L100.0100, L503.6550, L503.6030, L500.4050 ####[facility] [address] [place], [address] Hematocrit (Bld) [Volume fraction] 37.1 % Low 40-54 [facility] Comment on above: Performed By: #### L 300.3900, L503.0106, L100.0100, L503.6550, L503.6030, L500.4050 ####[facility] [address] [place], [address] Hemoglobin (Bld) [Mass/Vol] 12.5 g/dL Low 13.0-16.5 [facility] Comment on above: Performed By: #### L 300.3900, L503.0106, L100.0100, L503.6550, L503.6030, L500.4050 ####[facility] [address] [place], [address] IG% 0.300 Normal 0.0-0.9 [facility] Comment on above: Result Comment: IG% - Immature Granulocytes (promyelocytes, myelocytes andmetamyelocytes) > 1% indicates that a LEFT SHIFT is Present. Performed By: #### L 300.3900, L503.0106, L100.0100, L503.6550, L503.6030, L500.4050 ####[facility] [address] [place], [address] Lymphocytes/100 WBC (Bld) 11.9 % Low 19-41 [facility] Comment on above: Performed By: #### L 300.3900, L503.0106, L100.0100, L503.6550, L503.6030, L500.4050 ####[facility] [address] [place], [address] MCH (RBC) [Entitic mass] 35.6 pg High 27.0-32.0 [facility] Comment on above: Performed By: #### L 300.3900, L503.0106, L100.0100, L503.6550, L503.6030, L500.4050 ####[facility] [address] [place], [address] MCHC (RBC) [Mass/Vol] 33.7 g/dL Normal 32-36 [facility] Comment on above: Performed By: #### L 300.3900, L503.0106, L100.0100, L503.6550, L503.6030, L500.4050 ####[facility] [address] [place], [address] MCV (RBC) [Entitic vol] 105.7 fL High 80-94 [facility] Comment on above: Performed By: #### L 300.3900, L503.0106, L100.0100, L503.6550, L503.6030, L500.4050 ####[facility] [address] [place], [address] Monocytes/100 WBC (Bld) 14.9 % High 0-10 [facility] Comment on above: Performed By: #### L 300.3900, L503.0106, L100.0100, L503.6550, L503.6030, L500.4050 ####[facility] [address] [place], [address] Neutrophils/100 WBC (Bld) 53.8 % Normal 47-70 [facility] Comment on above: Performed By: #### L 300.3900, L503.0106, L100.0100, L503.6550, L503.6030, L500.4050 ####[facility] [address] [place], [address] Nucleated RBC (Bld) [#/Vol] 0 10*3/uL Normal 0-5 [facility] Comment on above: Performed By: #### L 300.3900, L503.0106, L100.0100, L503.6550, L503.6030, L500.4050 ####[facility] [address] [place], [address] Platelet mean volume (Bld) [Entitic vol] 10.1 fL Normal 6.2-12.0 [facility] Comment on above: Performed By: #### L 300.3900, L503.0106, L100.0100, L503.6550, L503.6030, L500.4050 ####[facility] [address] [place], [address] Platelets (Bld) [#/Vol] 180 10*3/uL Normal 150-450 [facility] Comment on above: Performed By: #### L 300.3900, L503.0106, L100.0100, L503.6550, L503.6030, L500.4050 ####[facility] [address] [place], [address] RBC (Bld) [#/Vol] 3.51 10*6/uL Low 4.6-6.2 [facility] Comment on above: Performed By: #### L 300.3900, L503.0106, L100.0100, L503.6550, L503.6030, L500.4050 ####[facility] [address] [place], [address] RDW SD 50.3 fl High 35.1-43.9 [facility] Comment on above: Performed By: #### L 300.3900, L503.0106, L100.0100, L503.6550, L503.6030, L500.4050 ####[facility] [address] [place], [address] WBC (Bld) [#/Vol] 6.4 10*3/uL Normal 4.4-11.0 [facility] Comment on above: Performed By: #### L 300.3900, L503.0106, L100.0100, L503.6550, L503.6030, L500.4050 ####[facility] [address] [place], [address] Absolute Neut Normal 2.0-7.7 [facility] Comment on above: Result Comment: PT H AD THESE COMPLETED ALREADY Performed By: #### L 500.4050, L500.4100, L300.3900, L100.0100 ####[facility] [address] [place], [address] HCT Normal 40-54 [facility] Comment on above: Result Comment: PT H AD THESE COMPLETED ALREADY Performed By: #### L 500.4050, L500.4100, L300.3900, L100.0100 ####[facility] [address] [place], [address] HGB Normal 13.0-16.5 [facility] Comment on above: Result Comment: PT H AD THESE COMPLETED ALREADY Performed By: #### L 500.4050, L500.4100, L300.3900, L100.0100 ####[facility] [address] [place], [address] MCH Normal 27.0-32.0 [facility] Comment on above: Result Comment: PT H AD THESE COMPLETED ALREADY Performed By: #### L 500.4050, L500.4100, L300.3900, L100.0100 ####[facility] [address] [place], [address] MCHC Normal 32-36 [facility] Comment on above: Result Comment: PT H AD THESE COMPLETED ALREADY Performed By: #### L 500.4050, L500.4100, L300.3900, L100.0100 ####[facility] [address] [place], [address] MCV Normal 80-94 [facility] Comment on above: Result Comment: PT H AD THESE COMPLETED ALREADY Performed By: #### L 500.4050, L500.4100, L300.3900, L100.0100 ####[facility] [address] [place], [address] NEUT% Normal 47-70 [facility] Comment on above: Result Comment: PT H AD THESE COMPLETED ALREADY Performed By: #### L 500.4050, L500.4100, L300.3900, L100.0100 ####[facility] [address] [place], [address] PLT Normal 150-450 [facility] Comment on above: Result Comment: PT H AD THESE COMPLETED ALREADY Performed By: #### L 500.4050, L500.4100, L300.3900, L100.0100 ####[facility] [address] [place], [address] RBC Normal 4.6-6.2 [facility] Comment on above: Result Comment: PT H AD THESE COMPLETED ALREADY Performed By: #### L 500.4050, L500.4100, L300.3900, L100.0100 ####[facility] [address] [place], [address] RDW CV Normal 11.6-14.6 [facility] Comment on above: Result Comment: PT H AD THESE COMPLETED ALREADY Performed By: #### L 500.4050, L500.4100, L300.3900, L100.0100 ####[facility] [address] [place], [address] RDW SD Normal 35.1-43.9 [facility] Comment on above: Result Comment: PT H AD THESE COMPLETED ALREADY Performed By: #### L 500.4050, L500.4100, L300.3900, L100.0100 ####[facility] [address] [place], [address] WBC Normal 4.4-11.0 [facility] Comment on above: Result Comment: PT H AD THESE COMPLETED ALREADY Performed By: #### L 500.4050, L500.4100, L300.3900, L100.0100 ####[facility] [address] [place], [address] Carbon dioxide, total [Moles /volume] in Central venous bloodOrdered By: Shubham Blanco on 03-10-2025 CO2 [Moles/Vol] 25.7 mmol/L 21.0-32.0 [facility] Chloride assayOrdered By: Tessa Blanco on 03-10-2025 Chloride [Moles/Vol] 103 mmol/L 98-108 [facility] Comprehensive Metabolic Prof ilon 03-10-2025 Albumin [Mass/Vol] 3.9 g/dL Normal 3.4-4.8 [facility] Comment on above: Performed By: #### L 300.3900, L503.0106, L100.0100, L503.6550, L503.6030, L500.4050 ####[facility] [address] [place], [address] Albumin/Globulin [Mass ratio] 1.4 {ratio} Normal 0.9-2.4 [facility] [facility] Comment on above: Performed By: #### L 300.3900, L503.0106, L100.0100, L503.6550, L503.6030, L500.4050 ####[facility] [address] [place], [address] ALK PHOS 120 U/L Normal 40-129 [facility] Comment on above: Performed By: #### L 300.3900, L503.0106, L100.0100, L503.6550, L503.6030, L500.4050 ####[facility] [address] [place], [address] ALT [Catalytic activity/Vol] 22 U/L Normal <=46 [facility] Comment on above: Performed By: #### L 300.3900, L503.0106, L100.0100, L503.6550, L503.6030, L500.4050 ####[facility] [address] [place], [address] AST [Catalytic activity/Vol] 34 U/L Normal <=37 [facility] Comment on above: Performed By: #### L 300.3900, L503.0106, L100.0100, L503.6550, L503.6030, L500.4050 ####[facility] [address] [place], [address] Bilirubin [Mass/Vol] 0.78 mg/dL Normal 0.00-1.30 [facility] Comment on above: Performed By: #### L 300.3900, L503.0106, L100.0100, L503.6550, L503.6030, L500.4050 ####[facility] [address] [place], [address] BUN/CRE 12.7 RATIO Normal 10-20 [facility] Comment on above: Performed By: #### L 300.3900, L503.0106, L100.0100, L503.6550, L503.6030, L500.4050 ####[facility] [address] [place], [address] Calcium [Mass/Vol] 9.6 mg/dL Normal 7.6-11.0 [facility] Comment on above: Performed By: #### L 300.3900, L503.0106, L100.0100, L503.6550, L503.6030, L500.4050 ####[facility] [address] [place], [address] Chloride [Moles/Vol] 103 mmol/L Normal 98-108 [facility] Comment on above: Performed By: #### L 300.3900, L503.0106, L100.0100, L503.6550, L503.6030, L500.4050 ####[facility] [address] [place], [address] CO2 [Moles/Vol] 25.7 mmol/L Normal 21.0-32.0 [facility] Comment on above: Performed By: #### L 300.3900, L503.0106, L100.0100, L503.6550, L503.6030, L500.4050 ####[facility] [address] [place], [address] Creatinine [Mass/Vol] 0.74 mg/dL Normal 0.70-1.20 [facility] Comment on above: Performed By: #### L 300.3900, L503.0106, L100.0100, L503.6550, L503.6030, L500.4050 ####[facility] [address] [place], [address] GAP 10 Normal 5-15 [facility] Comment on above: Performed By: #### L 300.3900, L503.0106, L100.0100, L503.6550, L503.6030, L500.4050 ####[facility] [address] [place], [address] GFR/1.73 sq M.predicted among non-blacks MDRD (S/P/Bld) [Vol rate/Area] 95 mL/min/{1.73_m2} Normal >60 [facility] Comment on above: Result Comment: mL/m in/1.73m2 CKD-EPI Creatinine Equation (2020) Performed By: #### L 300.3900, L503.0106, L100.0100, L503.6550, L503.6030, L500.4050 ####[facility] [address] [place], [address] Globulin (S) [Mass/Vol] 2.8 g/dL Normal 2.2-4.2 [facility] Comment on above: Performed By: #### L 300.3900, L503.0106, L100.0100, L503.6550, L503.6030, L500.4050 ####[facility] [address] [place], [address] Glucose [Mass/Vol] 115 mg/dL High 70-99 [facility] Comment on above: Performed By: #### L 300.3900, L503.0106, L100.0100, L503.6550, L503.6030, L500.4050 ####[facility] [address] [place], [address] Potassium [Moles/Vol] 4.4 mmol/L Normal 3.3-5.1 [facility] Comment on above: Performed By: #### L 300.3900, L503.0106, L100.0100, L503.6550, L503.6030, L500.4050 ####[facility] [address] [place], [address] Sodium [Moles/Vol] 139 mmol/L Normal 133-145 [facility] Comment on above: Performed By: #### L 300.3900, L503.0106, L100.0100, L503.6550, L503.6030, L500.4050 ####[facility] [address] [place], [address] T PROT 6.6 g/dL Normal 5.9-8.4 [facility] Comment on above: Performed By: #### L 300.3900, L503.0106, L100.0100, L503.6550, L503.6030, L500.4050 ####[facility] [address] [place], [address] Urea nitrogen [Mass/Vol] 9 mg/dL Normal 4-19 [facility] Comment on above: Performed By: #### L 300.3900, L503.0106, L100.0100, L503.6550, L503.6030, L500.4050 ####[facility] [address] [place], [address] ALB Normal 3.4-4.8 [facility] Comment on above: Result Comment: PT H AD THESE COMPLETED ALREADY Performed By: #### L 500.4050, L500.4100, L300.3900, L100.0100 ####[facility] [address] [place], [address] ALK PHOS Normal 40-129 [facility] Comment on above: Result Comment: PT H AD THESE COMPLETED ALREADY Performed By: #### L 500.4050, L500.4100, L300.3900, L100.0100 ####[facility] [address] [place], [address] ALT Normal <=46 [facility] Comment on above: Result Comment: PT H AD THESE COMPLETED ALREADY Performed By: #### L 500.4050, L500.4100, L300.3900, L100.0100 ####[facility] [address] [place], [address] AST Normal <=37 [facility] Comment on above: Result Comment: PT H AD THESE COMPLETED ALREADY Performed By: #### L 500.4050, L500.4100, L300.3900, L100.0100 ####[facility] [address] [place], [address] BUN Normal 4-19 [facility] Comment on above: Result Comment: PT H AD THESE COMPLETED ALREADY Performed By: #### L 500.4050, L500.4100, L300.3900, L100.0100 ####[facility] [address] [place], [address] BUN/CRE Normal 10-20 [facility] Comment on above: Result Comment: PT H AD THESE COMPLETED ALREADY Performed By: #### L 500.4050, L500.4100, L300.3900, L100.0100 ####[facility] [address] [place], [address] Calcium Normal 7.6-11.0 [facility] Comment on above: Result Comment: PT H AD THESE COMPLETED ALREADY Performed By: #### L 500.4050, L500.4100, L300.3900, L100.0100 ####[facility] [address] [place], [address] CL Normal 98-108 [facility] Comment on above: Result Comment: PT H AD THESE COMPLETED ALREADY Performed By: #### L 500.4050, L500.4100, L300.3900, L100.0100 ####[facility] [address] [place], [address] CO2 Normal 21.0-32.0 [facility] Comment on above: Result Comment: PT H AD THESE COMPLETED ALREADY Performed By: #### L 500.4050, L500.4100, L300.3900, L100.0100 ####[facility] [address] [place], [address] CREAT,SERUM Normal 0.70-1.20 [facility] Comment on above: Result Comment: PT H AD THESE COMPLETED ALREADY Performed By: #### L 500.4050, L500.4100, L300.3900, L100.0100 ####[facility] [address] [place], [address] eGFR Normal >60 [facility] Comment on above: Result Comment: PT H AD THESE COMPLETED ALREADY Performed By: #### L 500.4050, L500.4100, L300.3900, L100.0100 ####[facility] [address] [place], [address] GAP Normal 5-15 [facility] Comment on above: Result Comment: PT H AD THESE COMPLETED ALREADY Performed By: #### L 500.4050, L500.4100, L300.3900, L100.0100 ####[facility] [address] [place], [address] GLU Normal 70-99 [facility] Comment on above: Result Comment: PT H AD THESE COMPLETED ALREADY Performed By: #### L 500.4050, L500.4100, L300.3900, L100.0100 ####[facility] [address] [place], [address] Potassium Normal 3.3-5.1 [facility] Comment on above: Result Comment: PT H AD THESE COMPLETED ALREADY Performed By: #### L 500.4050, L500.4100, L300.3900, L100.0100 ####[facility] [address] [place], [address] T BILI Normal 0.00-1.30 [facility] Comment on above: Result Comment: PT H AD THESE COMPLETED ALREADY Performed By: #### L 500.4050, L500.4100, L300.3900, L100.0100 ####[facility] [address] [place], [address] T PROT Normal 5.9-8.4 [facility] Comment on above: Result Comment: PT H AD THESE COMPLETED ALREADY Performed By: #### L 500.4050, L500.4100, L300.3900, L100.0100 ####[facility] [address] [place], [address] Comprehensive Metabolic Profil Normal 133-145 [facility] Comment on above: Result Comment: PT H AD THESE COMPLETED ALREADY Performed By: #### L 500.4050, L500.4100, L300.3900, L100.0100 ####[facility] [address] [place], [address] Eosinophil percentageOrdered By: Shubham Blanco on 03-10-2025 Eosinophils/100 WBC (Bld) 18.0 % High 0-5 [facility] Erythrocyte distribution wid th ratioOrdered By: Shubham Blanco on 03-10-2025 Erythrocyte distribution width (RBC) [Ratio] 12.9 % 11.6-14.6 [facility] Erythrocyte distribution wid th standard deviationOrdered By: Shubham Blanco on 03-10-2025 Erythrocyte distribution width (RBC) [Ratio] 50.3 fl High 35.1-43.9 [facility] Ferritinon 03-10-2025 Ferritin [Mass/Vol] 104 ng/mL Normal 37-417 [facility] Comment on above: Performed By: #### L 300.3900, L503.0106, L100.0100, L503.6550, L503.6030, L500.4050 ####[facility] [address] [place], [place], [address] Glomerular filtration rate ( GFR) estimation/1.73 sq m using serum, plasma, or whole bOrdered By: Shubham Blanco on 03-10-2025 GFR/1.73 sq M.predicted among non-blacks MDRD (S/P/Bld) [Vol rate/Area] 95 mL/min/{1.73_m2} >60 [facility] Comment on above: mL/min/1.73m2 CKD-EP I Creatinine Equation (2020) Hematocrit Auto (Bld) [Volum e fraction]Ordered By: Shubham Blanco on 03-10-2025 Hematocrit (Bld) [Volume fraction] 37.1 % Low 40-54 [facility] Hemoglobin measurementOrdere d By: Shubham Blanco on 03-10-2025 Hemoglobin (Bld) [Mass/Vol] 12.5 g/dL Low 13.0-16.5 [facility] Immature granulocytes/100 WB C Auto (Bld)Ordered By: Shubham Blanco on 03-10-2025 Immature granulocytes/100 WBC (Bld) 0.300 % 0.0-0.9 [facility] Comment on above: IG% - Immature Granu locytes (promyelocytes, myelocytes and metamyelocytes) > 1% indicates that a LEFT SHIFT is Present. International normalized rat io (INR) calculationOrdered By: Shubham Blanco on 03-10-2025 INR Coag (Bld) [Relative time] 1.1 {INR} [facility] Iron measurement (mass/mass) Ordered By: Shubham Blanco on 03-10-2025 Iron (Unsp spec) [Mass/Mass] 93 ug/dL 65-175 [facility] Iron+Iron Binding Capacityon 03-10-2025 Iron [Mass/Vol] 93 ug/dL Normal 65-175 [facility] Comment on above: Performed By: #### L 300.3900, L503.0106, L100.0100, L503.6550, L503.6030, L500.4050 ####[facility] [address] [place], [address] IRON SATURATION 35.0 Normal 9-55 [facility] Comment on above: Performed By: #### L 300.3900, L503.0106, L100.0100, L503.6550, L503.6030, L500.4050 ####[facility] [address] [place], [address] TIBC 268 ug/dL Normal 250-450 [facility] Comment on above: Performed By: #### L 300.3900, L503.0106, L100.0100, L503.6550, L503.6030, L500.4050 ####[facility] [address] [place], [address] UIBC 175 ug/dL Low 228-428 [facility] Comment on above: Performed By: #### L 300.3900, L503.0106, L100.0100, L503.6550, L503.6030, L500.4050 ####[facility] [address] [place], [address] Laboratory - Chemistry and C hemistry - challengeOrdered By: Shubham Blanco on 03-10-2025 AST [Catalytic activity/Vol] 34 U/L <38 [facility] Lipid Profileon 03-10-2025 CHOL Normal <=200 [facility] Comment on above: Result Comment: PT H AD THESE COMPLETED ALREADY Performed By: #### L 500.4050, L500.4100, L300.3900, L100.0100 ####[facility] [address] [place], [address] CHOL:HDL Normal [facility] Comment on above: Result Comment: PT H AD THESE COMPLETED ALREADY Performed By: #### L 500.4050, L500.4100, L300.3900, L100.0100 ####[facility] [address] [place], [address] CLDL Normal [facility] Comment on above: Result Comment: PT H AD THESE COMPLETED ALREADY Performed By: #### L 500.4050, L500.4100, L300.3900, L100.0100 ####[facility] [address] [place], [address] HDL Normal [facility] Comment on above: Result Comment: PT H AD THESE COMPLETED ALREADY Performed By: #### L 500.4050, L500.4100, L300.3900, L100.0100 ####[facility] [address] [place], [address] TRIG Normal [facility] Comment on above: Result Comment: PT H AD THESE COMPLETED ALREADY Performed By: #### L 500.4050, L500.4100, L300.3900, L100.0100 ####[facility] [address] [place], [address] VLDL Normal 5-40 [facility] Comment on above: Result Comment: PT H AD THESE COMPLETED ALREADY Performed By: #### L 500.4050, L500.4100, L300.3900, L100.0100 ####[facility] [address] [place], [address] MCV (mean corpuscular volume ) determinationOrdered By: Shubham Blanco on 03-10-2025 MCV (RBC) [Entitic vol] 105.7 fL High 80-94 [facility] Mean corpuscular hemoglobin (MCH) determinationOrdered By: Shubham Blanco on 03-10-2025 MCH (RBC) [Entitic mass] 35.6 pg High 27.0-32.0 [facility] Mean corpuscular hemoglobin concentration (MCHC) determinationOrdered By: Shubham Blanco on 03-10-2025 MCHC (RBC) [Mass/Vol] 33.7 g/dL 32-36 [facility] Mean platelet volume determi nationOrdered By: Shubham Blanco on 03-10-2025 Platelet mean volume (Bld) [Entitic vol] 10.1 fL 6.2-12.0 [facility] Monocyte percentageOrdered B y: Shubham Blanco on 03-10-2025 Monocytes/100 WBC (Bld) 14.9 % High 0-10 [facility] Neutrophil percentageOrdered By: Shubham Blanco on 03-10-2025 Neutrophils/100 WBC (Bld) 53.8 % 47-70 [facility] No Panel InformationOrdered By: Shubham Blanco on 03-10-2025 Unsaturated Iron Binding Capacity 175 ug/dL Low 228-428 [facility] Nucleated red blood cell per centageOrdered By: Shubham Blanco on 03-10-2025 Nucleated RBC/100 WBC (Bld) [Ratio] 0 % 0-5 [facility] Platelet countOrdered By: Tessa Blanco on 03-10-2025 Platelets (Bld) [#/Vol] 180 10*3/uL 150-450 [facility] Potassium measurement (mass/ volume)Ordered By: Shubham Blanco on 03-10-2025 Potassium (Unsp spec) [Mass/Vol] 4.4 mmol/L 3.3-5.1 [facility] Prothrombin Time w/INRon INR Coag (PPP) [Relative time] 1.1 {INR} Normal [facility] Comment on above: Performed By: #### L 300.3900, L503.0106, L100.0100, L503.6550, L503.6030, L500.4050 ####[facility] [address], [address] PT Coag (PPP) [Time] 14.3 s Normal 11.7-14.9 [facility] Comment on above: Performed By: #### L 300.3900, L503.0106, L100.0100, L503.6550, L503.6030, L500.4050 ####[facility] [address] [place], [address] INR Normal [facility] Comment on above: Result Comment: PT H AD THESE COMPLETED ALREADY Performed By: #### L 500.4050, L500.4100, L300.3900, L100.0100 ####[facility] [address] [place], [address] PROTIME Normal 11.7-14.9 [facility] Comment on above: Result Comment: PT H AD THESE COMPLETED ALREADY Performed By: #### L 500.4050, L500.4100, L300.3900, L100.0100 ####[facility] [address] [place], [address] Prothrombin timeOrdered By: Shubham Blanco on 03-10-2025 PT Coag (PPP) [Time] 14.3 s 11.7-14.9 [facility] RBC Auto (Bld) [#/Vol]Ordere d By: Shubham Blanco on 03-10-2025 RBC (Bld) [#/Vol] 3.51 10*6/uL Low 4.6-6.2 [facility] Serum creatinine measurement (mass/volume)Ordered By: Shubham Blanco on 03-10-2025 Creatinine [Mass/Vol] 0.74 mg/dL 0.70-1.20 [facility] Serum globulin measurementOr dered By: Shubham Blanco on 03-10-2025 Globulin (S) [Mass/Vol] 2.8 g/dL 2.2-4.2 [facility] Serum glucose measurement (m ass/volume)Ordered By: Shubham Blanco on 03-10-2025 Glucose [Mass/Vol] 115 mg/dL High 70-99 [facility] Serum or plasma alanine guevara otransferase (ALT) measurementOrdered By: Shubham Blanco on 03-10-2025 ALT [Catalytic activity/Vol] 22 U/L <47 [facility] Serum or plasma albumin reid urement (mass/volume)Ordered By: Shubham Blanco on 03-10-2025 Albumin [Mass/Vol] 3.9 g/dL 3.4-4.8 [facility] Serum or plasma albumin/glob ulin mass ratioOrdered By: Shubham Blanco on 03-10-2025 Albumin/Globulin [Mass ratio] 1.4 {ratio} 0.9-2.4 [facility] Serum or plasma alkaline adelfo sphatase measurementOrdered By: Shubham Blanco on 03-10-2025 ALP [Catalytic activity/Vol] 120 U/L 40-129 [facility] Serum or plasma calcium reid urement (mass/volume)Ordered By: Shubham Blanco on 03-10-2025 Calcium [Mass/Vol] 9.6 mg/dL 7.6-11.0 [facility] Serum or plasma ferritin steve surement (mass/volume)Ordered By: Shubham Blanco on 03-10-2025 Ferritin [Mass/Vol] 104 ng/mL 37-417 [facility] Serum or plasma iron saturat ion measurement (mass fraction)Ordered By: Shubham Blanco on 03-10-2025 Iron saturation [Mass fraction] 35.0 % 9-55 [facility] Serum or plasma urea nitroge n measurement (mass/volume)Ordered By: Shubham Blanco on 03-10-2025 Urea nitrogen [Mass/Vol] 9 mg/dL 4-19 [facility] Sodium levelOrdered By: Nilda Blanco on 03-10-2025 Sodium [Moles/Vol] 139 mmol/L 133-145 [facility] Total proteinOrdered By: Gennaro Blanco on 03-10-2025 Protein [Mass/Vol] 6.6 g/dL 5.9-8.4 [facility] Vitamin B12on 03-10-2025 Cobalamin (Vitamin B12) [Mass/Vol] 627 pg/mL Normal 180-914 [facility] Comment on above: Performed By: #### L 300.3900, L503.0106, L100.0100, L503.6550, L503.6030, L500.4050 ####[facility] [address] [place], [place], [address] Vitamin B12 ser/plasOrdered By: Shubahm Blanco on 03-10-2025 Cobalamin (Vitamin B12) [Mass/Vol] 627 pg/mL 180-914 [facility] White blood cell (WBC) count Ordered By: Shubham Blanco on 03-10-2025 WBC (Bld) [#/Vol] 6.4 10*3/uL 4.4-11.0 [facility] Gastroenterology Visit Repor ton 02-26-2025 Gastroenterology Visit Report Normal [facility] Abdomen Single Viewon 2024 Abdomen Single View Normal [facility] PSA,Total - Annual Screenon 02-25-2025 PSA,TOT SCREEN 3.95 ng/mL Normal 0.02-4.00 [facility] Comment on above: Result Comment: This test was performed using the Georgina Goodman tPSAmethod. Measured values of a patient??sample can varydepending on the testing procedure used. PSA valuesdetermined on patient samples by different testingprocedures cannot be used interchangeably. If there is achange in PSA assays while monitoring therapy, sequentialtesting should be performed to confirm baseline values. Performed By: #### L 501.9910 ####[facility] [address], [address] Absolute lymphocyte countOrd ered By: Shubham Blanco on 02-07-2025 Lymphocytes Auto (Unsp spec) [#/Vol] 0.79 10*3/uL Low 0.83-4.51 [facility] Absolute neutrophil countOrd ered By: Shubham Blanco on 02-07-2025 Neutrophils (Bld) [#/Vol] 4.8 10*3/uL 2.0-7.7 [facility] Ammoniaon 02-07-2025 Ammonia (P) [Moles/Vol] 39.6 umol/L Normal 16-60 [facility] Comment on above: Performed By: #### L 501.6710, L503.5510, L500.4050, L100.0100 ####[facility] [address] [place], [address] Anion gap in Serum or Plasma Ordered By: Shubham Blanco on 02-07-2025 Anion gap [Moles/Vol] 12 mmol/L 5-15 [facility] Automated lymphocyte count a s percentage of total leukocytesOrdered By: Shubham Blanco on 02-07-2025 Lymphocytes/100 WBC Auto (Unsp spec) 10.2 % Low - [facility] BUN/creatinine ratioOrdered By: Shubhammary jo Blanco on 02-07-2025 Urea nitrogen/Creatinine [Mass ratio] 13.6 mg/mg 10- [facility] Basophil percentageOrdered B y: Shubham Blanco on 02-07-2025 Basophils/100 WBC (Bld) 1.0 % 0- [facility] Bilirubin, totalOrdered By: Shubham Blanco on 02-07-2025 Bilirubin [Mass/Vol] 0.52 mg/dL 0.00-1.30 [facility] CBC W/Diff, Automatedon 01-21 Absolute Lymph 0.79 X10 3/uL Low 0.83-4.51 [facility] Comment on above: Performed By: #### L 501.6710, L503.5510, L500.4050, L100.0100 ####[facility] [address] [place], [address] Absolute Neut 4.8 X10 3/uL Normal 2.0-7.7 [facility] Comment on above: Performed By: #### L 501.6710, L503.5510, L500.4050, L100.0100 ####[facility] [address] [place], [address] Basophils/100 WBC (Bld) 1.0 % Normal 0-1 [facility] Comment on above: Performed By: #### L 501.6710, L503.5510, L500.4050, L100.0100 ####[facility] [address] [place], [address] Eosinophils/100 WBC (Bld) 14.6 % High 0-5 [facility] Comment on above: Performed By: #### L 501.6710, L503.5510, L500.4050, L100.0100 ####[facility] [address] [place], [address] Erythrocyte distribution width (RBC) [Ratio] 14.0 % Normal 11.6-14.6 [facility] Comment on above: Performed By: #### L 501.6710, L503.5510, L500.4050, L100.0100 ####[facility] [address] [place], [address] Hematocrit (Bld) [Volume fraction] 33.4 % Low 40-54 [facility] Comment on above: Performed By: #### L 501.6710, L503.5510, L500.4050, L100.0100 ####[facility] [address] [place], [address] Hemoglobin (Bld) [Mass/Vol] 11.2 g/dL Low 13.0-16.5 [facility] Comment on above: Performed By: #### L 501.6710, L503.5510, L500.4050, L100.0100 ####[facility] [address] [place], [address] IG% 0.800 Normal 0.0-0.9 [facility] Comment on above: Result Comment: IG% - Immature Granulocytes (promyelocytes, myelocytes andmetamyelocytes) > 1% indicates that a LEFT SHIFT is Present. Performed By: #### L 501.6710, L503.5510, L500.4050, L100.0100 ####[facility] [address] [place], [address] Lymphocytes/100 WBC (Bld) 10.2 % Low 19-41 [facility] Comment on above: Performed By: #### L 501.6710, L503.5510, L500.4050, L100.0100 ####[facility] [address] [place], [address] MCH (RBC) [Entitic mass] 35.6 pg High 27.0-32.0 [facility] Comment on above: Performed By: #### L 501.6710, L503.5510, L500.4050, L100.0100 ####[facility] [address], [address] MCHC (RBC) [Mass/Vol] 33.5 g/dL Normal 32-36 [facility] Comment on above: Performed By: #### L 501.6710, L503.5510, L500.4050, L100.0100 ####[facility] [address] [place], [address] MCV (RBC) [Entitic vol] 106.0 fL High 80-94 [facility] Comment on above: Performed By: #### L 501.6710, L503.5510, L500.4050, L100.0100 ####[facility] [address] [place], [address] Monocytes/100 WBC (Bld) 11.2 % High 0-10 [facility] Comment on above: Performed By: #### L 501.6710, L503.5510, L500.4050, L100.0100 ####[facility] [address] [place], [address] Neutrophils/100 WBC (Bld) 62.2 % Normal 47-70 [facility] Comment on above: Performed By: #### L 501.6710, L503.5510, L500.4050, L100.0100 ####[facility] [address] [place], [address] Nucleated RBC (Bld) [#/Vol] 0 10*3/uL Normal 0-5 [facility] Comment on above: Performed By: #### L 501.6710, L503.5510, L500.4050, L100.0100 ####[facility] [address] [place], [address] Platelet mean volume (Bld) [Entitic vol] 9.9 fL Normal 6.2-12.0 [facility] Comment on above: Performed By: #### L 501.6710, L503.5510, L500.4050, L100.0100 ####[facility] [address] [place], [address] Platelets (Bld) [#/Vol] 236 10*3/uL Normal 150-450 [facility] Comment on above: Performed By: #### L 501.6710, L503.5510, L500.4050, L100.0100 ####[facility] [address] [place], [address] RBC (Bld) [#/Vol] 3.15 10*6/uL Low 4.6-6.2 [facility] Comment on above: Performed By: #### L 501.6710, L503.5510, L500.4050, L100.0100 ####[facility] [address] [place], [address] RDW SD 54.8 fl High 35.1-43.9 [facility] Comment on above: Performed By: #### L 501.6710, L503.5510, L500.4050, L100.0100 ####[facility] [address] [place], [address] WBC (Bld) [#/Vol] 7.7 10*3/uL Normal 4.4-11.0 [facility] Comment on above: Performed By: #### L 501.6710, L503.5510, L500.4050, L100.0100 ####[facility] [address] [place], [address] CRPon 02-07-2025 C-REACTIVE PROT 18.70 mg/L High 0.0-3.0 [facility] Comment on above: Performed By: #### L 501.6710, L503.5510, L500.4050, L100.0100 ####[facility] [address] [place], [address] Carbon dioxide, total [Moles /volume] in Central venous bloodOrdered By: Shubham Blanco on 02-07-2025 CO2 [Moles/Vol] 22.5 mmol/L 21.0-32.0 [facility] Chloride assayOrdered By: Tessa Blanco on 02-07-2025 Chloride [Moles/Vol] 105 mmol/L 98-108 [facility] Comprehensive Metabolic Prof ilon 02-07-2025 Albumin [Mass/Vol] 3.6 g/dL Normal 3.4-4.8 [facility] Comment on above: Performed By: #### L 501.6710, L503.5510, L500.4050, L100.0100 ####[facility] [address] [place], [address] Albumin/Globulin [Mass ratio] 1.2 {ratio} Normal 0.9-2.4 [facility] Comment on above: Performed By: #### L 501.6710, L503.5510, L500.4050, L100.0100 ####[facility] [address] [place], [address] ALK PHOS 125 U/L Normal 40-129 [facility] Comment on above: Performed By: #### L 501.6710, L503.5510, L500.4050, L100.0100 ####[facility] [address] [place], [address] ALT [Catalytic activity/Vol] 26 U/L Normal <=46 [facility] Comment on above: Performed By: #### L 501.6710, L503.5510, L500.4050, L100.0100 ####[facility] [address] [place], [address] AST [Catalytic activity/Vol] 35 U/L Normal <=37 [facility] Comment on above: Performed By: #### L 501.6710, L503.5510, L500.4050, L100.0100 ####[facility] [address] [place], [address] Bilirubin [Mass/Vol] 0.52 mg/dL Normal 0.00-1.30 [facility] Comment on above: Performed By: #### L 501.6710, L503.5510, L500.4050, L100.0100 ####[facility] [address] [place], [address] BUN/CRE 13.6 RATIO Normal 10-20 [facility] Comment on above: Performed By: #### L 501.6710, L503.5510, L500.4050, L100.0100 ####[facility] [address] [place], [address] Calcium [Mass/Vol] 9.8 mg/dL Normal 7.6-11.0 [facility] Comment on above: Performed By: #### L 501.6710, L503.5510, L500.4050, L100.0100 ####[facility] [address] [place], [address] Chloride [Moles/Vol] 105 mmol/L Normal 98-108 [facility] Comment on above: Performed By: #### L 501.6710, L503.5510, L500.4050, L100.0100 ####[facility] [address] [place], [address] CO2 [Moles/Vol] 22.5 mmol/L Normal 21.0-32.0 [facility] Comment on above: Performed By: #### L 501.6710, L503.5510, L500.4050, L100.0100 ####[facility] [address] [place], [address] Creatinine [Mass/Vol] 0.80 mg/dL Normal 0.70-1.20 [facility] Comment on above: Performed By: #### L 501.6710, L503.5510, L500.4050, L100.0100 ####[facility] [address] [place], [address] GAP 12 Normal 5-15 [facility] Comment on above: Performed By: #### L 501.6710, L503.5510, L500.4050, L100.0100 ####[facility] [address] [place], [address] GFR/1.73 sq M.predicted among non-blacks MDRD (S/P/Bld) [Vol rate/Area] 93 mL/min/{1.73_m2} Normal >60 [facility] Comment on above: Result Comment: mL/m in/1.73m2 CKD-EPI Creatinine Equation (2020) Performed By: #### L 501.6710, L503.5510, L500.4050, L100.0100 ####[facility] [address] [place], [address] Globulin (S) [Mass/Vol] 3.0 g/dL Normal 2.2-4.2 [facility] Comment on above: Performed By: #### L 501.6710, L503.5510, L500.4050, L100.0100 ####[facility] [address] [place], [address] Glucose [Mass/Vol] 144 mg/dL High 70-99 [facility] Comment on above: Performed By: #### L 501.6710, L503.5510, L500.4050, L100.0100 ####[facility] [address] [place], [address] Potassium [Moles/Vol] 4.1 mmol/L Normal 3.3-5.1 [facility] Comment on above: Performed By: #### L 501.6710, L503.5510, L500.4050, L100.0100 ####[facility] [address] [place], [address] Sodium [Moles/Vol] 139 mmol/L Normal 133-145 [facility] Comment on above: Performed By: #### L 501.6710, L503.5510, L500.4050, L100.0100 ####[facility] [address] [place], [address] T PROT 6.6 g/dL Normal 5.9-8.4 [facility] Comment on above: Performed By: #### L 501.6710, L503.5510, L500.4050, L100.0100 ####[facility] [address] [place], [address] Urea nitrogen [Mass/Vol] 11 mg/dL Normal 4-19 [facility] Comment on above: Performed By: #### L 501.6710, L503.5510, L500.4050, L100.0100 ####[facility] [address] [place], [address] Eosinophil percentageOrdered By: Shubham Blanco on 02-07-2025 Eosinophils/100 WBC (Bld) 14.6 % High 0-5 [facility] Erythrocyte distribution wid th ratioOrdered By: Shubham Blanco on 02-07-2025 Erythrocyte distribution width (RBC) [Ratio] 14.0 % 11.6-14.6 [facility] Erythrocyte distribution wid th standard deviationOrdered By: Shubham Blanco on 02-07-2025 Erythrocyte distribution width (RBC) [Ratio] 54.8 fl High 35.1-43.9 [facility] Glomerular filtration rate ( GFR) estimation/1.73 sq m using serum, plasma, or whole bOrdered By: Shubham Blanco on 02-07-2025 GFR/1.73 sq M.predicted among non-blacks MDRD (S/P/Bld) [Vol rate/Area] 93 mL/min/{1.73_m2} >60 [facility] Comment on above: mL/min/1.73m2 CKD-EP I Creatinine Equation (2020) Hematocrit Auto (Bld) [Volum e fraction]Ordered By: Shubham Blanco on 02-07-2025 Hematocrit (Bld) [Volume fraction] 33.4 % Low 40-54 [facility] Hemoglobin measurementOrdere d By: Shubham Blanco on 02-07-2025 Hemoglobin (Bld) [Mass/Vol] 11.2 g/dL Low 13.0-16.5 [facility] Immature granulocytes/100 WB C Auto (Bld)Ordered By: Shubham Blanco on 02-07-2025 Immature granulocytes/100 WBC (Bld) 0.800 % 0.0-0.9 [facility] Comment on above: IG% - Immature Granu locytes (promyelocytes, myelocytes and metamyelocytes) > 1% indicates that a LEFT SHIFT is Present. Laboratory - Chemistry and C hemistry - challengeOrdered By: Shubham Blanco on 02-07-2025 AST [Catalytic activity/Vol] 35 U/L <38 [facility] MCV (mean corpuscular volume ) determinationOrdered By: Shubham Blanco 02-07-2025 MCV (RBC) [Entitic vol] 106.0 fL High 80-94 [facility] Mean corpuscular hemoglobin (MCH) determinationOrdered By: Shubham Blanco 02-07-2025 MCH (RBC) [Entitic mass] 35.6 pg High 27.0-32.0 [facility] Mean corpuscular hemoglobin concentration (MCHC) determinationOrdered By: Shubham Blanco 02-07-2025 MCHC (RBC) [Mass/Vol] 33.5 g/dL 32-36 [facility] Mean platelet volume determi nationOrdered By: Shubham Blanco on 02-07-2025 Platelet mean volume (Bld) [Entitic vol] 9.9 fL 6.2-12.0 [facility] Monocyte percentageOrdered B y: Shubham Blanco on 02-07-2025 Monocytes/100 WBC (Bld) 11.2 % High 0-10 [facility] Neutrophil percentageOrdered By: Shubham Blanco on 02-07-2025 Neutrophils/100 WBC (Bld) 62.2 % 47-70 [facility] Nucleated red blood cell per centageOrdered By: Shubham Blanco on 02-07-2025 Nucleated RBC/100 WBC (Bld) [Ratio] 0 % 0-5 [facility] Platelet countOrdered By: Tessa Blanco on 02-07-2025 Platelets (Bld) [#/Vol] 236 10*3/uL 150-450 [facility] Potassium measurement (mass/ volume)Ordered By: Shubham Blanco on 02-07-2025 Potassium (Unsp spec) [Mass/Vol] 4.1 mmol/L 3.3-5.1 [facility] RBC Auto (Bld) [#/Vol]Ordere d By: Shubham Blanco on 02-07-2025 RBC (Bld) [#/Vol] 3.15 10*6/uL Low 4.6-6.2 [facility] Serum creatinine measurement (mass/volume)Ordered By: Shubham Blanco on 02-07-2025 Creatinine [Mass/Vol] 0.80 mg/dL 0.70-1.20 [facility] Serum globulin measurementOr dered By: Shubham Blanco on 02-07-2025 Globulin (S) [Mass/Vol] 3.0 g/dL 2.2-4.2 [facility] Serum glucose measurement (m ass/volume)Ordered By: Shubham Blanco on 02-07-2025 Glucose [Mass/Vol] 144 mg/dL High 70-99 [facility] Serum or plasma C reactive p rotein measurement (mass/volume)Ordered By: Shubham Blanco on 02-07-2025 CRP [Mass/Vol] 18.70 mg/L High 0.0-3.0 [facility] Serum or plasma alanine guevara otransferase (ALT) measurementOrdered By: Shubham Blanco on 02-07-2025 ALT [Catalytic activity/Vol] 26 U/L <47 [facility] Serum or plasma albumin reid urement (mass/volume)Ordered By: Shubham Blanco on 02-07-2025 Albumin [Mass/Vol] 3.6 g/dL 3.4-4.8 [facility] Serum or plasma albumin/glob ulin mass ratioOrdered By: Shubham Blanco on 02-07-2025 Albumin/Globulin [Mass ratio] 1.2 {ratio} 0.9-2.4 [facility] Serum or plasma alkaline adelfo sphatase measurementOrdered By: Shubham Blanco on 02-07-2025 ALP [Catalytic activity/Vol] 125 U/L 40-129 [facility] Serum or plasma calcium reid urement (mass/volume)Ordered By: Shubham Blanco on 02-07-2025 Calcium [Mass/Vol] 9.8 mg/dL 7.6-11.0 [facility] Serum or plasma urea nitroge n measurement (mass/volume)Ordered By: Shubham Blanco on 02-07-2025 Urea nitrogen [Mass/Vol] 11 mg/dL 4-19 [facility] Sodium levelOrdered By: Nilda Blanco on 02-07-2025 Sodium [Moles/Vol] 139 mmol/L 133-145 [facility] Total proteinOrdered By: Gennaro Blanco on 02-07-2025 Protein [Mass/Vol] 6.6 g/dL 5.9-8.4 [facility] Venous blood ammonia measure mentOrdered By: Shubham Blanco on 02-07-2025 Ammonia (P) [Moles/Vol] 39.6 umol/L 16-60 [facility] White blood cell (WBC) count Ordered By: Shubham Blanco on 02-07-2025 WBC (Bld) [#/Vol] 7.7 10*3/uL 4.4-11.0 [facility] CNOVon 01-30-2025 CNOV Normal [facility] Gastroenterology Visit Repor ton 01-29-2025 Gastroenterology Visit Report Normal [facility] Basic Metabolic Profile (BMP )on 01-26-2025 BUN Normal 4-19 [facility] Comment on above: Result Comment: Canc elled via OM: Order cancelled - Patient discharged Performed By: #### L 100.0100, L500.2500 ####[facility] [address] [place], [address] BUN/CRE Normal 10-20 [facility] Comment on above: Result Comment: Canc elled via OM: Order cancelled - Patient discharged Performed By: #### L 100.0100, L500.2500 ####[facility] [address] [place], [address] Calcium Normal 7.6-11.0 [facility] Comment on above: Result Comment: Canc elled via OM: Order cancelled - Patient discharged Performed By: #### L 100.0100, L500.2500 ####[facility] [address] [place], [address] CL Normal 98-108 [facility] Comment on above: Result Comment: Canc elled via OM: Order cancelled - Patient discharged Performed By: #### L 100.0100, L500.2500 ####[facility] [address] [place], [address] CO2 Normal 21.0-32.0 [facility] Comment on above: Result Comment: Canc elled via OM: Order cancelled - Patient discharged Performed By: #### L 100.0100, L500.2500 ####[facility] [address] [place], [address] CREAT,SERUM Normal 0.70-1.20 [facility] Comment on above: Result Comment: Canc elled via OM: Order cancelled - Patient discharged Performed By: #### L 100.0100, L500.2500 ####[facility] [address] [place], [address] eGFR Normal >60 [facility] Comment on above: Result Comment: Canc elled via OM: Order cancelled - Patient discharged Performed By: #### L 100.0100, L500.2500 ####[facility] [address] [place], [address] GAP Normal 5-15 [facility] Comment on above: Result Comment: Canc elled via OM: Order cancelled - Patient discharged Performed By: #### L 100.0100, L500.2500 ####[facility] [address] [place], [address] GLU Normal 70-99 [facility] Comment on above: Result Comment: Canc elled via OM: Order cancelled - Patient discharged Performed By: #### L 100.0100, L500.2500 ####[facility] [address] [place], [address] Potassium Normal 3.3-5.1 [facility] Comment on above: Result Comment: Canc elled via OM: Order cancelled - Patient discharged Performed By: #### L 100.0100, L500.2500 ####[facility] [address] [place], [address] Basic Metabolic Profile (BMP) Normal 133-145 [facility] Comment on above: Result Comment: Canc elled via OM: Order cancelled - Patient discharged Performed By: #### L 100.0100, L500.2500 ####[facility] [address] [place], [address] CBC W/Diff, Automatedon 07-0 6-2024 Absolute Neut Normal 2.0-7.7 [facility] Comment on above: Result Comment: Canc elled via OM: Order cancelled - Patient discharged Performed By: #### L 100.0100, L500.2500 ####[facility] [address] [place], [address] HCT Normal 40-54 [facility] Comment on above: Result Comment: Canc elled via OM: Order cancelled - Patient discharged Performed By: #### L 100.0100, L500.2500 ####[facility] [address], [address] HGB Normal 13.0-16.5 [facility] Comment on above: Result Comment: Canc elled via OM: Order cancelled - Patient discharged Performed By: #### L 100.0100, L500.2500 ####[facility] [address] [place], [address] MCH Normal 27.0-32.0 [facility] Comment on above: Result Comment: Canc elled via OM: Order cancelled - Patient discharged Performed By: #### L 100.0100, L500.2500 ####[facility] [address] [place], [address] MCHC Normal 32-36 [facility] Comment on above: Result Comment: Canc elled via OM: Order cancelled - Patient discharged Performed By: #### L 100.0100, L500.2500 ####[facility] [address] [place], [address] MCV Normal 80-94 [facility] Comment on above: Result Comment: Canc elled via OM: Order cancelled - Patient discharged Performed By: #### L 100.0100, L500.2500 ####[facility] [address] [place], [address] NEUT% Normal 47-70 [facility] Comment on above: Result Comment: Canc elled via OM: Order cancelled - Patient discharged Performed By: #### L 100.0100, L500.2500 ####[facility] [address] [place], [address] PLT Normal 150-450 [facility] Comment on above: Result Comment: Canc elled via OM: Order cancelled - Patient discharged Performed By: #### L 100.0100, L500.2500 ####[facility] [address] [place], [address] RBC Normal 4.6-6.2 [facility] Comment on above: Result Comment: Canc elled via OM: Order cancelled - Patient discharged Performed By: #### L 100.0100, L500.2500 ####[facility] [address] [place], [address] RDW CV Normal 11.6-14.6 [facility] Comment on above: Result Comment: Canc elled via OM: Order cancelled - Patient discharged Performed By: #### L 100.0100, L500.2500 ####[facility] [address] [place], [address] RDW SD Normal 35.1-43.9 [facility] Comment on above: Result Comment: Canc elled via OM: Order cancelled - Patient discharged Performed By: #### L 100.0100, L500.2500 ####[facility] [address] [place], [address] WBC Normal 4.4-11.0 [facility] Comment on above: Result Comment: Canc elled via OM: Order cancelled - Patient discharged Performed By: #### L 100.0100, L500.2500 ####[facility] [address], [address] Absolute lymphocyte countOrd ered By: Shubham Blanco on 01-25-2025 Lymphocytes Auto (Unsp spec) [#/Vol] 0.72 10*3/uL Low 0.83-4.51 [facility] Absolute neutrophil countOrd ered By: Shubham Blanco on 01-25-2025 Neutrophils (Bld) [#/Vol] 3.5 10*3/uL 2.0-7.7 [facility] Anion gap in Serum or Plasma Ordered By: Shubham Blanco on 01-25-2025 Anion gap [Moles/Vol] 8 mmol/L 5-15 [facility] Automated lymphocyte count a s percentage of total leukocytesOrdered By: Shubham Blanco on 01-25-2025 Lymphocytes/100 WBC Auto (Unsp spec) 13.0 % Low 19-41 [facility] BUN/creatinine ratioOrdered By: Shubham Blanco on 01-25-2025 Urea nitrogen/Creatinine [Mass ratio] 8.0 mg/mg Low 10-20 [facility] Basic Metabolic Profile (BMP )on 01-25-2025 BUN/CRE 8.0 RATIO Low 10-20 [facility] Comment on above: Performed By: #### L 500.2500, L501.2300 ####[facility] [address] [place], [address] Calcium [Mass/Vol] 8.5 mg/dL Normal 7.6-11.0 [facility] Comment on above: Performed By: #### L 500.2500, L501.2300 ####[facility] [address] [place], [address] Chloride [Moles/Vol] 111 mmol/L High 98-108 [facility] Comment on above: Performed By: #### L 500.2500, L501.2300 ####[facility] [address] [place], [address] CO2 [Moles/Vol] 22.6 mmol/L Normal 21.0-32.0 [facility] Comment on above: Performed By: #### L 500.2500, L501.2300 ####[facility] [address] [place], [address] Creatinine [Mass/Vol] 0.70 mg/dL Normal 0.70-1.20 [facility] Comment on above: Performed By: #### L 500.2500, L501.2300 ####[facility] [address] [place], [address] ECRCL 94.42 ml/min Normal 50-250 [facility] Comment on above: Performed By: #### L 500.2500, L501.2300 ####[facility] [address] [place], [address] GAP 8 Normal 5-15 [facility] Comment on above: Performed By: #### L 500.2500, L501.2300 ####[facility] [address] [place], [address] GFR/1.73 sq M.predicted among non-blacks MDRD (S/P/Bld) [Vol rate/Area] 97 mL/min/{1.73_m2} Normal >60 [facility] Comment on above: Result Comment: mL/m in/1.73m2 CKD-EPI Creatinine Equation (2020) Performed By: #### L 500.2500, L501.2300 ####[facility] [address] [place], [address] Glucose [Mass/Vol] 93 mg/dL Normal 70-99 [facility] Comment on above: Performed By: #### L 500.2500, L501.2300 ####[facility] [address] [place], [address] Potassium [Moles/Vol] 3.9 mmol/L Normal 3.3-5.1 [facility] Comment on above: Performed By: #### L 500.2500, L501.2300 ####[facility] [address] [place], [address] Sodium [Moles/Vol] 142 mmol/L Normal 133-145 [facility] Comment on above: Performed By: #### L 500.2500, L501.2300 ####[facility] [address] [place], [address] Urea nitrogen [Mass/Vol] 6 mg/dL Normal 4-19 [facility] Comment on above: Performed By: #### L 500.2500, L501.2300 ####[facility] [address] [place], [address] Basophil percentageOrdered B y: Shubham Blanco on 01-25-2024 Basophils/100 WBC (Bld) 0.7 % 0-1 [facility] CBC W/Diff, Automatedon -2024 Absolute Lymph 0.72 X10 3/uL Low 0.83-4.51 [facility] Comment on above: Performed By: #### L 100.0100 ####[facility] [address] [place], [address] Absolute Neut 3.5 X10 3/uL Normal 2.0-7.7 [facility] Comment on above: Performed By: #### L 100.0100 ####[facility] [address] [place], [address] Basophils/100 WBC (Bld) 0.7 % Normal 0-1 [facility] Comment on above: Performed By: #### L 100.0100 ####[facility] [address] [place], [address] Eosinophils/100 WBC (Bld) 8.9 % High 0-5 [facility] Comment on above: Performed By: #### L 100.0100 ####[facility] [address] [place], [address] Erythrocyte distribution width (RBC) [Ratio] 14.4 % Normal 11.6-14.6 [facility] Comment on above: Performed By: #### L 100.0100 ####[facility] [address] [place], [address] Hematocrit (Bld) [Volume fraction] 31.7 % Low 40-54 [facility] Comment on above: Performed By: #### L 100.0100 ####[facility] [address], [address] Hemoglobin (Bld) [Mass/Vol] 10.5 g/dL Low 13.0-16.5 [facility] Comment on above: Performed By: #### L 100.0100 ####[facility] [address], [address] IG% 0.500 Normal 0.0-0.9 [facility] Comment on above: Result Comment: IG% - Immature Granulocytes (promyelocytes, myelocytes andmetamyelocytes) > 1% indicates that a LEFT SHIFT is Present. Performed By: #### L 100.0100 ####[facility] [address] [place], [address] Lymphocytes/100 WBC (Bld) 13.0 % Low 19-41 [facility] Comment on above: Performed By: #### L 100.0100 ####[facility] [address] [place], [address] MCH (RBC) [Entitic mass] 36.0 pg High 27.0-32.0 [facility] Comment on above: Performed By: #### L 100.0100 ####[facility] [address], [address] MCHC (RBC) [Mass/Vol] 33.1 g/dL Normal 32-36 [facility] Comment on above: Performed By: #### L 100.0100 ####[facility] [address] [place], [address] MCV (RBC) [Entitic vol] 108.6 fL High 80-94 [facility] Comment on above: Performed By: #### L 100.0100 ####[facility] [address] [place], [address] Monocytes/100 WBC (Bld) 14.3 % High 0-10 [facility] Comment on above: Performed By: #### L 100.0100 ####[facility] [address] [place], [address] Neutrophils/100 WBC (Bld) 62.6 % Normal 47-70 [facility] Comment on above: Performed By: #### L 100.0100 ####[facility] [address] [place], [address] Nucleated RBC (Bld) [#/Vol] 0 10*3/uL Normal 0-5 [facility] Comment on above: Performed By: #### L 100.0100 ####[facility] [address] [place], [address] Platelet mean volume (Bld) [Entitic vol] 9.9 fL Normal 6.2-12.0 [facility] Comment on above: Performed By: #### L 100.0100 ####[facility] [address] [place], [address] Platelets (Bld) [#/Vol] 178 10*3/uL Normal 150-450 [facility] Comment on above: Performed By: #### L 100.0100 ####[facility] [address] [place], [address] RBC (Bld) [#/Vol] 2.92 10*6/uL Low 4.6-6.2 [facility] Comment on above: Performed By: #### L 100.0100 ####[facility] [address] [place], [address] RDW SD 56.2 fl High 35.1-43.9 [facility] Comment on above: Performed By: #### L 100.0100 ####[facility] [address] [place], [address] WBC (Bld) [#/Vol] 5.5 10*3/uL Normal 4.4-11.0 [facility] Comment on above: Performed By: #### L 100.0100 ####[facility] [address] [place], [address] Carbon dioxide, total [Moles /volume] in Central venous bloodOrdered By: Shubham Blanco on 01-25-2025 CO2 [Moles/Vol] 22.6 mmol/L 21.0-32.0 [facility] Chloride assayOrdered By: Tessa Blanco on 01-25-2025 Chloride [Moles/Vol] 111 mmol/L High 98-108 [facility] Discharge Instructionon 07-0 Discharge Instruction Normal [facility] Eosinophil percentageOrdered By: Shubham Blanco on 01-25-2025 Eosinophils/100 WBC (Bld) 8.9 % High 0-5 [facility] Erythrocyte distribution wid th ratioOrdered By: Shubham Blanco on 01-25-2025 Erythrocyte distribution width (RBC) [Ratio] 14.4 % 11.6-14.6 [facility] Erythrocyte distribution wid th standard deviationOrdered By: Shubham Blanco on 01-25-2025 Erythrocyte distribution width (RBC) [Ratio] 56.2 fl High 35.1-43.9 [facility] Glomerular filtration rate ( GFR) estimation/1.73 sq m using serum, plasma, or whole bOrdered By: Shubham Blanco on 01-25-2025 GFR/1.73 sq M.predicted among non-blacks MDRD (S/P/Bld) [Vol rate/Area] 97 mL/min/{1.73_m2} >60 [facility] Comment on above: mL/min/1.73m2 CKD-EP I Creatinine Equation (2020) Hematocrit Auto (Bld) [Volum e fraction]Ordered By: Shubham Blanco on 01-25-2025 Hematocrit (Bld) [Volume fraction] 31.7 % Low 40-54 [facility] Hemoglobin measurementOrdere d By: Shubham Blanco on 01-25-2025 Hemoglobin (Bld) [Mass/Vol] 10.5 g/dL Low 13.0-16.5 [facility] Immature granulocytes/100 WB C Auto (Bld)Ordered By: Shubham Blanco on 01-25-2025 Immature granulocytes/100 WBC (Bld) 0.500 % 0.0-0.9 [facility] Comment on above: IG% - Immature Granu locytes (promyelocytes, myelocytes and metamyelocytes) > 1% indicates that a LEFT SHIFT is Present. MCV (mean corpuscular volume ) determinationOrdered By: Shubham Blanco on 01-25-2025 MCV (RBC) [Entitic vol] 108.6 fL High 80-94 [facility] Mean corpuscular hemoglobin (MCH) determinationOrdered By: Shubham Blanco on 01-25-2025 MCH (RBC) [Entitic mass] 36.0 pg High 27.0-32.0 [facility] Mean corpuscular hemoglobin concentration (MCHC) determinationOrdered By: Shubham Blanco on 01-25-2025 MCHC (RBC) [Mass/Vol] 33.1 g/dL Invalid Interpretation Code 32-36 [facility] Comment on above: Delta: 34.9 on 01/24-403 Mean platelet volume determi nationOrdered By: Shubham Blanco on 01-25-2025 Platelet mean volume (Bld) [Entitic vol] 9.9 fL 6.2-12.0 [facility] Monocyte percentageOrdered B y: Shubham Blanco on 01-25-2025 Monocytes/100 WBC (Bld) 14.3 % High 0-10 [facility] Neutrophil percentageOrdered By: Shubham Blanco on 01-25-2025 Neutrophils/100 WBC (Bld) 62.6 % 47-70 [facility] Nucleated red blood cell per centageOrdered By: Shubham Blanco on 01-25-2025 Nucleated RBC/100 WBC (Bld) [Ratio] 0 % 0-5 [facility] Phosphoruson 01-25-2025 Phosphate [Mass/Vol] 2.8 mg/dL Normal 2.7-4.5 [facility] Comment on above: Performed By: #### L 500.2500, L501.2300 ####[facility] [address] [place], [address] Platelet countOrdered By: Tessa Blanco on 01-25-2025 Platelets (Bld) [#/Vol] 178 10*3/uL 150-450 [facility] Potassium measurement (mass/ volume)Ordered By: Shubham Blanco on 01-25-2025 Potassium (Unsp spec) [Mass/Vol] 3.9 mmol/L 3.3-5.1 [facility] RBC Auto (Bld) [#/Vol]Ordere d By: Shubham Blanco on 01-25-2025 RBC (Bld) [#/Vol] 2.92 10*6/uL Low 4.6-6.2 [facility] Serum creatinine measurement (mass/volume)Ordered By: Shubham Blanco on 01-25-2025 Creatinine [Mass/Vol] 0.70 mg/dL 0.70-1.20 [facility] Serum glucose measurement (m ass/volume)Ordered By: Shubham Blanco on 01-25-2025 Glucose [Mass/Vol] 93 mg/dL 70-99 [facility] Serum or plasma calcium reid urement (mass/volume)Ordered By: Shubham Blanco on 01-25-2025 Calcium [Mass/Vol] 8.5 mg/dL 7.6-11.0 [facility] Serum or plasma urea nitroge n measurement (mass/volume)Ordered By: Shubham Blanco on 01-25-2025 Urea nitrogen [Mass/Vol] 6 mg/dL 4-19 [facility] Sodium levelOrdered By: Nilda Blanco on 01-25-2025 Sodium [Moles/Vol] 142 mmol/L 133-145 [facility] Urine Cultureon 01-25-2025 [facility] Comments: UA sample of 01/23/2025 Culture exhibits no growth. Normal [facility] Comment on above: Performed By: #### M 100.2200 ####[facility] [address] [place], [place], [id number] White blood cell (WBC) count Ordered By: Shubham Blanco on 01-25-2025 WBC (Bld) [#/Vol] 5.5 10*3/uL 4.4-11.0 [facility] Bilirubin, totalOrdered By: Tessa Roca on 01-24-2025 Bilirubin [Mass/Vol] 0.63 mg/dL 0.00-1.30 [facility] CBC W/Diff, Automatedon Absolute Lymph 0.74 X10 3/uL Low 0.83-4.51 [facility] Comment on above: Performed By: #### L 500.4100, L100.0100, L501.9520, L501.2300, L500.4050 ####[facility] [address] [place], [address] Absolute Neut 2.7 X10 3/uL Normal 2.0-7.7 [facility] Comment on above: Performed By: #### L 500.4100, L100.0100, L501.9520, L501.2300, L500.4050 ####[facility] [address] [place], [address] Basophils/100 WBC (Bld) 0.2 % Normal 0-1 [facility] Comment on above: Performed By: #### L 500.4100, L100.0100, L501.9520, L501.2300, L500.4050 ####[facility] [address] [place], [address] Eosinophils/100 WBC (Bld) 10.2 % High 0-5 [facility] Comment on above: Performed By: #### L 500.4100, L100.0100, L501.9520, L501.2300, L500.4050 ####[facility] [address] [place], [address] Erythrocyte distribution width (RBC) [Ratio] 14.0 % Normal 11.6-14.6 [facility] Comment on above: Performed By: #### L 500.4100, L100.0100, L501.9520, L501.2300, L500.4050 ####[facility] [address] [place], [address] Hematocrit (Bld) [Volume fraction] 28.4 % Low 40-54 [facility] Comment on above: Performed By: #### L 500.4100, L100.0100, L501.9520, L501.2300, L500.4050 ####[facility] [address] [place], [address] Hemoglobin (Bld) [Mass/Vol] 9.9 g/dL Low 13.0-16.5 [facility] Comment on above: Performed By: #### L 500.4100, L100.0100, L501.9520, L501.2300, L500.4050 ####[facility] [address] [place], [address] IG% 0.400 Normal 0.0-0.9 [facility] Comment on above: Result Comment: IG% - Immature Granulocytes (promyelocytes, myelocytes andmetamyelocytes) > 1% indicates that a LEFT SHIFT is Present. Performed By: #### L 500.4100, L100.0100, L501.9520, L501.2300, L500.4050 ####[facility] [address] [place], [address] Lymphocytes/100 WBC (Bld) 16.3 % Low 19-41 [facility] Comment on above: Performed By: #### L 500.4100, L100.0100, L501.9520, L501.2300, L500.4050 ####[facility] [address] [place], [address] MCH (RBC) [Entitic mass] 36.8 pg High 27.0-32.0 [facility] Comment on above: Performed By: #### L 500.4100, L100.0100, L501.9520, L501.2300, L500.4050 ####[facility] [address] [place], [address] MCHC (RBC) [Mass/Vol] 34.9 g/dL Normal 32-36 [facility] Comment on above: Performed By: #### L 500.4100, L100.0100, L501.9520, L501.2300, L500.4050 ####[facility] [address] [place], [address] MCV (RBC) [Entitic vol] 105.6 fL High 80-94 [facility] Comment on above: Performed By: #### L 500.4100, L100.0100, L501.9520, L501.2300, L500.4050 ####[facility] [address] [place], [address] Monocytes/100 WBC (Bld) 12.8 % High 0-10 [facility] Comment on above: Performed By: #### L 500.4100, L100.0100, L501.9520, L501.2300, L500.4050 ####[facility] [address] [place], [address] Neutrophils/100 WBC (Bld) 60.1 % Normal 47-70 [facility] Comment on above: Performed By: #### L 500.4100, L100.0100, L501.9520, L501.2300, L500.4050 ####[facility] [address] [place], [address] Nucleated RBC (Bld) [#/Vol] 0 10*3/uL Normal 0-5 [facility] Comment on above: Performed By: #### L 500.4100, L100.0100, L501.9520, L501.2300, L500.4050 ####[facility] [address] [place], [address] Platelet mean volume (Bld) [Entitic vol] 9.6 fL Normal 6.2-12.0 [facility] Comment on above: Performed By: #### L 500.4100, L100.0100, L501.9520, L501.2300, L500.4050 ####[facility] [address] [place], [address] Platelets (Bld) [#/Vol] 144 10*3/uL Low 150-450 [facility] Comment on above: Performed By: #### L 500.4100, L100.0100, L501.9520, L501.2300, L500.4050 ####[facility] [address] [place], [address] RBC (Bld) [#/Vol] 2.69 10*6/uL Low 4.6-6.2 [facility] Comment on above: Performed By: #### L 500.4100, L100.0100, L501.9520, L501.2300, L500.4050 ####[facility] [address] [place], [address] RDW SD 52.3 fl High 35.1-43.9 [facility] Comment on above: Performed By: #### L 500.4100, L100.0100, L501.9520, L501.2300, L500.4050 ####[facility] [address] [place], [address] WBC (Bld) [#/Vol] 4.5 10*3/uL Normal 4.4-11.0 [facility] Comment on above: Performed By: #### L 500.4100, L100.0100, L501.9520, L501.2300, L500.4050 ####[facility] [address] [place], [address] Calculated very low density lipoprotein (VLDL) cholesterol measurementOrdered By: Tessa Roca on 01-24-2025 Calculated very low density lipoprotein (VLDL) cholesterol measurement 21 mg/dL 5-40 [facility] Comprehensive Metabolic Prof ilon 01-24-2025 Albumin [Mass/Vol] 3.5 g/dL Normal 3.4-4.8 [facility] Comment on above: Performed By: #### L 500.4100, L100.0100, L501.9520, L501.2300, L500.4050 ####[facility] [address] [place], [address] Albumin/Globulin [Mass ratio] 1.4 {ratio} Normal 0.9-2.4 [facility] Comment on above: Performed By: #### L 500.4100, L100.0100, L501.9520, L501.2300, L500.4050 ####[facility] [address] [place], [address] ALK PHOS 93 U/L Normal 40-129 [facility] Comment on above: Performed By: #### L 500.4100, L100.0100, L501.9520, L501.2300, L500.4050 ####[facility] [address] [place], [address] ALT [Catalytic activity/Vol] 24 U/L Normal <=46 [facility] Comment on above: Performed By: #### L 500.4100, L100.0100, L501.9520, L501.2300, L500.4050 ####[facility] [address] [place], [address] AST [Catalytic activity/Vol] 33 U/L Normal <=37 [facility] Comment on above: Performed By: #### L 500.4100, L100.0100, L501.9520, L501.2300, L500.4050 ####[facility] [address] [place], [address] Bilirubin [Mass/Vol] 0.63 mg/dL Normal 0.00-1.30 [facility] Comment on above: Performed By: #### L 500.4100, L100.0100, L501.9520, L501.2300, L500.4050 ####[facility] [address] [place], [address] BUN/CRE 15.8 RATIO Normal 10-20 [facility] Comment on above: Performed By: #### L 500.4100, L100.0100, L501.9520, L501.2300, L500.4050 ####[facility] [address] [place], [address] Calcium [Mass/Vol] 8.5 mg/dL Normal 7.6-11.0 [facility] Comment on above: Performed By: #### L 500.4100, L100.0100, L501.9520, L501.2300, L500.4050 ####[facility] [address] [place], [address] Chloride [Moles/Vol] 109 mmol/L High 98-108 [facility] Comment on above: Performed By: #### L 500.4100, L100.0100, L501.9520, L501.2300, L500.4050 ####[facility] [address] [place], [address] CO2 [Moles/Vol] 22.5 mmol/L Normal 21.0-32.0 [facility] Comment on above: Performed By: #### L 500.4100, L100.0100, L501.9520, L501.2300, L500.4050 ####[facility] [address] [place], [address] Creatinine [Mass/Vol] 0.68 mg/dL Low 0.70-1.20 [facility] Comment on above: Performed By: #### L 500.4100, L100.0100, L501.9520, L501.2300, L500.4050 ####[facility] [address] [place], [address] ECRCL 93.09 ml/min Normal 50-250 [facility] Comment on above: Performed By: #### L 500.4100, L100.0100, L501.9520, L501.2300, L500.4050 ####[facility] [address] [place], [address] GAP 9 Normal 5-15 [facility] Comment on above: Performed By: #### L 500.4100, L100.0100, L501.9520, L501.2300, L500.4050 ####[facility] [address], [address] GFR/1.73 sq M.predicted among non-blacks MDRD (S/P/Bld) [Vol rate/Area] 98 mL/min/{1.73_m2} Normal >60 [facility] Comment on above: Result Comment: mL/m in/1.73m2 CKD-EPI Creatinine Equation (2020) Performed By: #### L 500.4100, L100.0100, L501.9520, L501.2300, L500.4050 ####[facility] [address] [place], [address] Globulin (S) [Mass/Vol] 2.5 g/dL Normal 2.2-4.2 [facility] Comment on above: Performed By: #### L 500.4100, L100.0100, L501.9520, L501.2300, L500.4050 ####[facility] [address] [place], [address] Glucose [Mass/Vol] 90 mg/dL Normal 70-99 [facility] Comment on above: Performed By: #### L 500.4100, L100.0100, L501.9520, L501.2300, L500.4050 ####[facility] [address] [place], [address] Potassium [Moles/Vol] 3.5 mmol/L Normal 3.3-5.1 [facility] Comment on above: Performed By: #### L 500.4100, L100.0100, L501.9520, L501.2300, L500.4050 ####[facility] [address] [place], [address] Sodium [Moles/Vol] 141 mmol/L Normal 133-145 [facility] Comment on above: Performed By: #### L 500.4100, L100.0100, L501.9520, L501.2300, L500.4050 ####[facility] [address] [place], [address] T PROT 6.0 g/dL Normal 5.9-8.4 [facility] Comment on above: Performed By: #### L 500.4100, L100.0100, L501.9520, L501.2300, L500.4050 ####[facility] [address] [place], [address] Urea nitrogen [Mass/Vol] 11 mg/dL Normal 4-19 [facility] Comment on above: Performed By: #### L 500.4100, L100.0100, L501.9520, L501.2300, L500.4050 ####[facility] [address] [place], [address] Folate [Mass/volume] in Seru m or PlasmaOrdered By: Tessa Roca on 01-24-2025 Folate [Mass/Vol] 23.30 ng/mL 4.60-34.80 [facility] Folates,Serum (Folic Acid)on 01-24-2025 FOLATES,SERUM 23.30 ng/mL Normal 4.60-34.80 [facility] Comment on above: Performed By: #### L 501.5200, L506.0200 ####[facility] [address] [place], [address] HH, Hemoglobin AND Hematocri ton 01-24-2025 Hematocrit (Bld) [Volume fraction] 32.8 % Low 40-54 [facility] Comment on above: Performed By: #### L 100.0600 ####[facility] [address], [address] Hemoglobin (Bld) [Mass/Vol] 11.1 g/dL Low 13.0-16.5 [facility] Comment on above: Performed By: #### L 100.0600 ####[facility] [address], [address] Hematocrit (Bld) [Volume fraction] 31.9 % Low 40-54 [facility] Comment on above: Performed By: #### L 100.0600 ####[facility] [address] [place], [address] Hemoglobin (Bld) [Mass/Vol] 11.1 g/dL Low 13.0-16.5 [facility] Comment on above: Performed By: #### L 100.0600 ####[facility] [address] [place], [address] International normalized rat io (INR) calculationOrdered By: Shubham Blanco on 01-24-2025 INR Coag (Bld) [Relative time] 1.0 {INR} [facility] Iron+Iron Binding Capacityon 01-24-2025 Iron [Mass/Vol] 91 ug/dL Normal 65-175 [facility] Comment on above: Performed By: #### L 503.6030, L503.6550, L501.9985, L503.0106 ####[facility] [address] [place], [address] IRON SATURATION 34.0 Normal 9-55 [facility] Comment on above: Performed By: #### L 503.6030, L503.6550, L501.9985, L503.0106 ####[facility] [address] [place], [address] TIBC 270 ug/dL Normal 250-450 [facility] Comment on above: Performed By: #### L 503.6030, L503.6550, L501.9985, L503.0106 ####[facility] [address] [place], [address] UIBC 179 ug/dL Low 228-428 [facility] Comment on above: Performed By: #### L 503.6030, L503.6550, L501.9985, L503.0106 ####[facility] [address] [place], [address] LDL calc ser/plasOrdered By: Tessa Roca on 01-24-2025 Cholesterol in LDL [Mass/Vol] 62 mg/dL [facility] Comment on above: Upwobbzxhl=248-092 m g/dL & Higher Uocu=029 mg/dL or greater Laboratory - Chemistry and C hemistry - challengeOrdered By: Tessa Roca on 01-24-2025 AST [Catalytic activity/Vol] 33 U/L <38 [facility] Lipid Profileon 01-24-2025 CHOL:HDL 3.25 Normal [facility] Comment on above: Performed By: #### L 500.4100, L100.0100, L501.9520, L501.2300, L500.4050 ####[facility] [address] [place], [address] Cholesterol [Mass/Vol] 120 mg/dL Normal <=200 [facility] Comment on above: Result Comment: Chol esterol level, Desirable <200 mg/dLBorderline high cholesterol 200-239 mg/dLHigh cholesterol >=240 mg/dLRecommendations of the NCEP Adult Treatment Panel for thefollowing risk-cutoff thresholds for the [place] Americanpulation. Performed By: #### L 500.4100, L100.0100, L501.9520, L501.2300, L500.4050 ####[facility] [address] [place], [address] Cholesterol in HDL [Mass/Vol] 37 mg/dL Low [facility] Comment on above: Result Comment: Jayleen onal Cholesterol Education Program (NCEP) guidelines:<40 mg/dL: Low HDL-cholesterol (major risk factor for CHD)>= 60 mg/dL: High HDL-cholesterol (negative risk factor forCHD)HDL-cholesterol is affected by a number of factors, e.g.smoking, exercise, hormones, sex and age. Performed By: #### L 500.4100, L100.0100, L501.9520, L501.2300, L500.4050 ####[facility] [address] [place], [address] Cholesterol in LDL [Mass/Vol] 62 mg/dL Normal [facility] Comment on above: Result Comment: Bord krtrdx=737-744 mg/dL Higher Vdmo=081 mg/dL or greater Performed By: #### L 500.4100, L100.0100, L501.9520, L501.2300, L500.4050 ####[facility] [address] [place], [address] Cholesterol in VLDL [Mass/Vol] 21 mg/dL Normal 5-40 [facility] Comment on above: Performed By: #### L 500.4100, L100.0100, L501.9520, L501.2300, L500.4050 ####[facility] [address] [place], [address] Triglyceride [Mass/Vol] 106 mg/dL Normal [facility] Comment on above: Result Comment: The drugs N-Acetylcysteine and Metamizole may falselydepress this assay.Normal range: <150 mg/dLBorderline High: 150-199 mg/dLHigh: 200-499 mg/dLVery High: >500 mg/dL Performed By: #### L 500.4100, L100.0100, L501.9520, L501.2300, L500.4050 ####[facility] [address] [place], [address] Phosphoruson 01-24-2025 Phosphate [Mass/Vol] 2.9 mg/dL Normal 2.7-4.5 [facility] Comment on above: Performed By: #### L 500.4100, L100.0100, L501.9520, L501.2300, L500.4050 ####[facility] [address] [place], [address] Prothrombin Time w/INRon INR Coag (PPP) [Relative time] 1.0 {INR} Normal [facility] Comment on above: Performed By: #### L 300.3900 ####[facility] [address] [place], [address] PT Coag (PPP) [Time] 13.4 s Normal 11.7-14.9 [facility] Comment on above: Performed By: #### L 300.3900 ####[facility] [address] [place], [address] Prothrombin timeOrdered By: Shubham Blanco on 01-24-2025 PT Coag (PPP) [Time] 13.4 s 11.7-14.9 [facility] Screening total cholesterol/ high density lipoprotein (HDL) cholesterol ratioOrdered By: Tessa Roca on 01-24-2025 Cholesterol.total/Cho lesterol in HDL [Mass ratio] 3.25 {ratio} [facility] Serum globulin measurementOr dered By: Tessa Roca on 01-24-2025 Globulin (S) [Mass/Vol] 2.5 g/dL 2.2-4.2 [facility] Serum or plasma alanine guevara otransferase (ALT) measurementOrdered By: Tessa Roca on 01-24-2025 ALT [Catalytic activity/Vol] 24 U/L <47 [facility] Serum or plasma albumin reid urement (mass/volume)Ordered By: Tessa Roca on 01-24-2025 Albumin [Mass/Vol] 3.5 g/dL 3.4-4.8 [facility] Serum or plasma albumin/glob ulin mass ratioOrdered By: Tessa Roca on 01-24-2025 Albumin/Globulin [Mass ratio] 1.4 {ratio} 0.9-2.4 [facility] Serum or plasma alkaline adelfo sphatase measurementOrdered By: Tessa Roca on 01-24-2025 ALP [Catalytic activity/Vol] 93 U/L 40-129 [facility] Serum or plasma cholesterol in HDL measurement (mass/volume)Ordered By: Tessa Roca on 01-24-2025 Cholesterol in HDL [Mass/Vol] 37 mg/dL Low >40 [facility] Comment on above: National Cholesterol Education Program (NCEP) guidelines:<40 mg/dL: Low HDL-cholesterol (major risk factor for CHD)>= 60 mg/dL: High HDL-cholesterol (negative risk factor for CHD)HDL-cholesterol is affected by a number of factors, e.g. smoking, exercise, hormones, sex and age. Serum or plasma cholesterol measurement (mass/volume)Ordered By: Tessa Roca on 01-24-2025 Cholesterol [Mass/Vol] 120 mg/dL <201 [facility] Comment on above: Cholesterol level, D esirable <200 mg/dLBorderline high cholesterol 200-239 mg/dLHigh cholesterol >=240 mg/dLRecommendations of the NCEP Adult Treatment Panel for the following risk-cutoff thresholds for the [place] population. Stool Occult Blood iFOBon STOB Normal [facility] Comment on above: Performed By: #### M 100.7900 ####[facility] [address] [place], [place], [id number] Stool gastrointestinal hemog lobin detection by immunologic methodOrdered By: Shubham Blanco on 01-24-2025 Lower GI hemoglobin IA Ql (Stl) Positive Abnormal [facility] TSH DL <= 0.005 mIU/L QnOrde red By: Tessa Roca on 01-24-2025 TSH Qn 1.920 uIU/mL 0.300-4.200 [facility] Thyroid Stim Hormone (TSH)on 01-24-2025 TSH 1.920 uIU/mL Normal 0.300-4.200 [facility] Comment on above: Performed By: #### L 500.4100, L100.0100, L501.9520, L501.2300, L500.4050 ####[facility] [address], [address] Total proteinOrdered By: Hugh Roca on 01-24-2025 Protein [Mass/Vol] 6.0 g/dL 5.9-8.4 [facility] Triglycerides measurementOrd ered By: Tessa Roca on 01-24-2025 Triglyceride [Mass/Vol] 106 mg/dL <199 [facility] Comment on above: The drugs N-Acetylcy steine and Metamizole may falsely depress this assay. Normal range: <150 mg/dLBorderline High: 150-199 mg/dLHigh: 200-499 mg/dLVery High: >500 mg/dL 25(OH)D3 [facility] 2024 25-hydroxyvitamin D3 [Mass/Vol] 41.0 ng/mL Normal 31.0-80.0 [facility] Comment on above: Order Comment: Speci men Type: BLOOD SPECIMENOrdering Facility: [facility] Address: [address] [place] [address], [place] [address] Result Comment: Clas sification of 25 [place] Vitamin D status:Deficiency/Insufficiency: < or = 30 ng/ml.Sufficiency/Optimal Levels: 31-80 ng/mLToxicity: > 100 ng/mL.Test performed by chemiluminescent immunoassay. Performed By: #### 1 989-3 ####[facility] LABCLIA [id number] [address] STATES OF [facility] Absolute lymphocyte countOrd ered By: ED PROVIDER on 01-23-2025 Lymphocytes Auto (Unsp spec) [#/Vol] 0.86 10*3/uL 0.83-4.51 [facility] Absolute neutrophil countOrd ered By: ED PROVIDER on 01-23-2025 Neutrophils (Bld) [#/Vol] 3.1 10*3/uL 2.0-7.7 [facility] Anion gap in Serum or Plasma Ordered By: ED PROVIDER on 01-23-2025 Anion gap [Moles/Vol] 13 mmol/L 5-15 [facility] Automated lymphocyte count a s percentage of total leukocytesOrdered By: ED PROVIDER on 01-23-2025 Lymphocytes/100 WBC Auto (Unsp spec) 16.0 % Low 19-41 [facility] BUN/creatinine ratioOrdered By: ED PROVIDER on 01-23-2025 Urea nitrogen/Creatinine [Mass ratio] 15.1 mg/mg 10-20 [facility] Basophil percentageOrdered B y: ED PROVIDER on 01-23-2025 Basophils/100 WBC (Bld) 0.7 % 0-1 [facility] Bilirubin Test strip Ql (U)O rdered By: Jae Mcclure on 01-23-2025 Bilirubin Ql (U) Negative Negative [facility] Bilirubin, totalOrdered By: ED PROVIDER on 01-23-2025 Bilirubin [Mass/Vol] 0.74 mg/dL 0.00-1.30 [facility] C1 ESTERASE INHIB FUon 01-23 C1 ESTERASE INHIBITOR FUNCTION 102 % Normal >=41 [facility] Comment on above: Order Comment: Speci men Type: BLOOD SPECIMENOrdering Facility: [facility] Address: [address] [place] [address] Result Comment: The concentration of functional C1 esterase inhibitor (C1-INH) isreported as the percentage of the mean level in normal specimens.Concentrations greater than or equal to 68 percent mean normal areconsidered normal.INTERPRETIVE INFORMATION: Y-4-Kigkczyn Inhib. Functional 68% or greater ........ Normal 41% - 67% ............. Indeterminate 40% or less ........... AbnormalPerformed By: [address] [place], [place] [address]Hwwhcctfzu Director: King Hernández MD, PhDCLIA Number: [id number] Performed By: #### C 1EFUN ####[facility] [id number] [place] [address] CBC W Auto Differential pane l (Bld)on 01-23-2025 Basophils (Bld) [#/Vol] 0.05 10*3/uL Normal <0.11 [facility] Comment on above: Order Comment: Speci men Type: BLOOD SPECIMENOrdering Facility: [facility] Address: [address] [place] [address], [place] [address] Performed By: #### 5 7021-8, 4537-01 ####[facility] LABCLIA [id number] [address] [place] [address] [place] Basophils/100 WBC (Bld) 0.8 % Normal [facility] Comment on above: Order Comment: Speci men Type: BLOOD SPECIMENOrdering Facility: [facility] Address: [address] [place] [address], [place] [address] Performed By: #### 5 7021-8, 4537-01 ####[facility] LABCLIA [id number] [place] [id number] [place] Differential cell count method Nom (Bld) Auto Normal [facility] Comment on above: Order Comment: Speci men Type: BLOOD SPECIMENOrdering Facility: [facility] Address: [address] [place] [address] [place], [place] [address] Performed By: #### 5 7021-8, 4537-01 ####[facility] LABCLIA [id number] [place] [address] [place] Eosinophils (Bld) [#/Vol] 0.67 10*3/uL High <0.46 [facility] Comment on above: Order Comment: Speci men Type: BLOOD SPECIMENOrdering Facility: [facility] Address: [address], [place] [address] Performed By: #### 5 7021-8, 4537-01 ####[facility] LABCLIA [id number] [place] [id number] [place] Eosinophils/100 WBC (Bld) 11.1 % Normal [facility] Comment on above: Order Comment: Speci men Type: BLOOD SPECIMENOrdering Facility: [facility] Address: [address] [facility], [place] [address] Performed By: #### 5 7021-8, 4537-01 ####[facility] LABCLIA [id number] [address] [address] [place] Erythrocyte distribution width (RBC) [Ratio] 13.8 % Normal 11.5-15.0 [facility] Comment on above: Order Comment: Speci liv Type: BLOOD SPECIMENOrdering Facility: [facility] Address: [address] [place] [address] Performed By: #### 5 7021-8, 4537-7 ####[facility] LABCLIA [id number] [address] [address] [place] Hematocrit (Bld) [Volume fraction] 31.2 % Low 39.0-51.0 [facility] Comment on above: Order Comment: Kristii men Type: BLOOD SPECIMENOrdering Facility: [facility] Address: [address] [place] [address] Performed By: #### 5 7021-8, 4537-7 ####[facility] LABCLIA [id number] [address] [address] [place] Hemoglobin (Bld) [Mass/Vol] 10.3 g/dL Low 13.0-17.0 [facility] Comment on above: Order Comment: Speci men Type: BLOOD SPECIMENOrdering Facility: [facility] Address: [address] [place] [address] Performed By: #### 5 7021-8, 7-7 ####[facility] LABCLIA [id number] [address] [address] [place] Immature granulocytes (Bld) [#/Vol] 0.03 10*3/uL Normal <0.10 [facility] Comment on above: Order Comment: Speci men Type: BLOOD SPECIMENOrdering Facility: [facility] Address: [address] [place] [address] Performed By: #### 5 7021-8, 4537-7 ####[facility] LABCLIA [id number] [address] [address] [place] Immature granulocytes/100 WBC (Bld) 0.5 % Normal [facility] Comment on above: Order Comment: Medina peck Type: BLOOD SPECIMENOrdering Facility: [facility] Address: [facility] [place] [address] Performed By: #### 5 7021-8, 4536-7 ####[facility] LABCLIA [id number] [place] [id number] [place] Lymphocytes (Bld) [#/Vol] 0.80 10*3/uL Low 1.00-4.00 [facility] Comment on above: Order Comment: Medina peck Type: BLOOD SPECIMENOrdering Facility: [facility] Address: [facility] [place] [address] Performed By: #### 5 7021-8, 7 ####[facility] LABCLIA [id number] [place] [address] [place] Lymphocytes/100 WBC (Bld) 13.3 % Normal [facility] Comment on above: Order Comment: Medina peck Type: BLOOD SPECIMENOrdering Facility: [facility] [place] Address: [facility] [place] [address] Performed By: #### 5 7021-8, 7 ####[facility] LABCLIA [id number] [place] [id number] [place] MCH (RBC) [Entitic mass] 35.0 pg High 26.0-34.0 [facility] Comment on above: Order Comment: Kristii liv Type: BLOOD SPECIMENOrdering Facility: [facility] [place] Address: [facility] [place] [address] Performed By: #### 5 7021-8, 7 ####[facility] LABCLIA [id number] [facility] SYSTEMSK [address] [address] [place] MCHC (RBC) [Mass/Vol] 33.0 g/dL Normal 30.5-36.0 [facility] Comment on above: Order Comment: Speci men Type: BLOOD SPECIMENOrdering Facility: [facility] Address: [address] [place], [place] [address] Performed By: #### 5 7021-8, 7 ####[facility] LABCLIA [id number] [address] [address] [place] MCV (RBC) [Entitic vol] 106.1 fL High 80.0-100.0 [facility] Comment on above: Order Comment: Kristii men Type: BLOOD SPECIMENOrdering Facility: [facility] Address: [address] [facility], [place] [address] Performed By: #### 5 7021-8, 7 ####[facility] LABCLIA [id number] [address] [address] [place] Monocytes (Bld) [#/Vol] 0.77 10*3/uL Normal <0.87 [facility] Comment on above: Order Comment: Kristii men Type: BLOOD SPECIMENOrdering Facility: [facility] Address: [address] [place] [address], [place] [address] Performed By: #### 5 7021-8, 7 ####[facility] LABCLIA [id number] [address] [address] [place] Monocytes/100 WBC (Bld) 12.8 % Normal [facility] Comment on above: Order Comment: Kristii men Type: BLOOD SPECIMENOrdering Facility: [facility] Address: [address] [facility], [place] [address] Performed By: #### 5 7021-8, 7 ####[facility] LABCLIA [id number] [address] [address] [place] Neutrophils (Bld) [#/Vol] 3.71 10*3/uL Normal 1.45-7.50 [facility] Comment on above: Order Comment: Speci men Type: BLOOD SPECIMENOrdering Facility: [facility] Address: [address] [facility], [place] [address] Performed By: #### 5 7021-8, 7 ####[facility] LABCLIA [id number] [facility] [address] [address] [place] Neutrophils/100 WBC (Bld) 61.5 % Normal [facility] Comment on above: Order Comment: Speci men Type: BLOOD SPECIMENOrdering Facility: [facility] Address: [address] [place] [address], [place] [address] Performed By: #### 5 7021-8, 4537-01 ####[facility] LABCLIA [id number] [address] [address] [place] Nucleated RBC (Bld) [#/Vol] 10*3/uL Normal <0.01 [facility] Comment on above: Order Comment: Speci men Type: BLOOD SPECIMENOrdering Facility: [facility] Address: [address] [place] [address], [place] [address] Performed By: #### 5 7021-8, 4537-01 ####[facility] LABCLIA [id number] [address] [address] [place] Nucleated RBC/100 WBC (Bld) [Ratio] 0.0 /100 WBC Normal [facility] Comment on above: Order Comment: Speci men Type: BLOOD SPECIMENOrdering Facility: [facility] Address: [address] [place] [address], [place] [address] Performed By: #### 5 7021-8, 4537-01 ####[facility] LABCLIA [id number] [facility] [address] [address] [place] Platelet mean volume (Bld) [Entitic vol] 10.6 fL Normal 9.0-12.7 [facility] Comment on above: Order Comment: Speci men Type: BLOOD SPECIMENOrdering Facility: [facility] Address: [address] [place] [address], [place] [address] Performed By: #### 5 7021-8, 4537-01 ####[facility] LABCLIA [id number] [place] [id number] [place] Platelets (Bld) [#/Vol] 185 10*3/uL Normal 150-400 [facility] Comment on above: Order Comment: Speci men Type: BLOOD SPECIMENOrdering Facility: [facility] Address: [address] [place] [address] Performed By: #### 5 7021-8, 4537-7 ####[facility] LABCLIA [id number] [place] [id number] [place] RBC (Bld) [#/Vol] 2.94 10*6/uL Low 4.20-6.00 [facility] Comment on above: Order Comment: Speci men Type: BLOOD SPECIMENOrdering Facility: [facility] Address: [address] [place] [address] Performed By: #### 5 7021-8, 4537-7 ####[facility] LABCLIA [id number] [place] [id number] [place] WBC (Bld) [#/Vol] 6.03 10*3/uL Normal 3.70-11.00 [facility] Comment on above: Order Comment: Speci men Type: BLOOD SPECIMENOrdering Facility: [facility] Address: [address] [place] [address] Performed By: #### 5 7021-8, 4537-7 ####[facility] LABCLIA [id number] [place] [id number] [place] CBC W/Diff, Automatedon 07-0 3-2024 Absolute Lymph 0.86 X10 3/uL Normal 0.83-4.51 [facility] Comment on above: Performed By: #### L 500.4050, L501.2450, L100.0100 ####[facility] [address] [place], [place], [id number] Absolute Neut 3.1 X10 3/uL Normal 2.0-7.7 [facility] Comment on above: Performed By: #### L 500.4050, L501.2450, L100.0100 ####[facility] [address] [place], [address] Basophils/100 WBC (Bld) 0.7 % Normal 0-1 [facility] Comment on above: Performed By: #### L 500.4050, L501.2450, L100.0100 ####[facility] [address] [place], [address] Eosinophils/100 WBC (Bld) 10.6 % High 0-5 [facility] Comment on above: Performed By: #### L 500.4050, L501.2450, L100.0100 ####[facility] [address] [place], [address] Erythrocyte distribution width (RBC) [Ratio] 13.8 % Normal 11.6-14.6 [facility] Comment on above: Performed By: #### L 500.4050, L501.2450, L100.0100 ####[facility] [address] [place], [address] Hematocrit (Bld) [Volume fraction] 31.0 % Low 40-54 [facility] Comment on above: Performed By: #### L 500.4050, L501.2450, L100.0100 ####[facility] [address] [place], [address] Hemoglobin (Bld) [Mass/Vol] 10.5 g/dL Low 13.0-16.5 [facility] Comment on above: Performed By: #### L 500.4050, L501.2450, L100.0100 ####[facility] [address] [place], [address] IG% 0.700 Normal 0.0-0.9 [facility] Comment on above: Result Comment: IG% - Immature Granulocytes (promyelocytes, myelocytes andmetamyelocytes) > 1% indicates that a LEFT SHIFT is Present. Performed By: #### L 500.4050, L501.2450, L100.0100 ####[facility] [address] [place], [address] Lymphocytes/100 WBC (Bld) 16.0 % Low 19-41 [facility] Comment on above: Performed By: #### L 500.4050, L501.2450, L100.0100 ####[facility] [address] [place], [address] MCH (RBC) [Entitic mass] 36.0 pg High 27.0-32.0 [facility] Comment on above: Performed By: #### L 500.4050, L501.2450, L100.0100 ####[facility] [address] [place], [address] MCHC (RBC) [Mass/Vol] 33.9 g/dL Normal 32-36 [facility] Comment on above: Performed By: #### L 500.4050, L501.2450, L100.0100 ####[facility] [address] [place], [address] MCV (RBC) [Entitic vol] 106.2 fL High 80-94 [facility] Comment on above: Performed By: #### L 500.4050, L501.2450, L100.0100 ####[facility] [address] [place], [address] Monocytes/100 WBC (Bld) 13.7 % High 0-10 [facility] Comment on above: Performed By: #### L 500.4050, L501.2450, L100.0100 ####[facility] [address] [place], [address] Neutrophils/100 WBC (Bld) 58.3 % Normal 47-70 [facility] Comment on above: Performed By: #### L 500.4050, L501.2450, L100.0100 ####[facility] [address] [place], [address] Nucleated RBC (Bld) [#/Vol] 0 10*3/uL Normal 0-5 [facility] Comment on above: Performed By: #### L 500.4050, L501.2450, L100.0100 ####[facility] [address] [place], [address] Platelet mean volume (Bld) [Entitic vol] 9.5 fL Normal 6.2-12.0 [facility] Comment on above: Performed By: #### L 500.4050, L501.2450, L100.0100 ####[facility] [address] [place], [address] Platelets (Bld) [#/Vol] 167 10*3/uL Normal 150-450 [facility] Comment on above: Performed By: #### L 500.4050, L501.2450, L100.0100 ####[facility] [address] [place], [address] RBC (Bld) [#/Vol] 2.92 10*6/uL Low 4.6-6.2 [facility] Comment on above: Performed By: #### L 500.4050, L501.2450, L100.0100 ####[facility] [address] [place], [address] RDW SD 53.4 fl High 35.1-43.9 [facility] Comment on above: Performed By: #### L 500.4050, L501.2450, L100.0100 ####[facility] [address] [place], [address] WBC (Bld) [#/Vol] 5.4 10*3/uL Normal 4.4-11.0 [facility] Comment on above: Performed By: #### L 500.4050, L501.2450, L100.0100 ####[facility] [address] [place], [address] Carbon dioxide, total [Moles /volume] in Central venous bloodOrdered By: ED PROVIDER on 01-23-2025 CO2 [Moles/Vol] 19.9 mmol/L Low 21.0-32.0 [facility] Chloride assayOrdered By: ED PROVIDER on 01-23-2025 Chloride [Moles/Vol] 107 mmol/L 98-108 [facility] Comprehensive Metabolic Prof ilon 01-23-2025 Albumin [Mass/Vol] 3.8 g/dL Normal 3.4-4.8 [facility] Comment on above: Performed By: #### L 500.4050, L501.2450, L100.0100 ####[facility] [address] [place], [address] Albumin/Globulin [Mass ratio] 1.3 {ratio} Normal 0.9-2.4 [facility] Comment on above: Performed By: #### L 500.4050, L501.2450, L100.0100 ####[facility] [address] [place], [address] ALK PHOS 103 U/L Normal 40-129 [facility] Comment on above: Performed By: #### L 500.4050, L501.2450, L100.0100 ####[facility] [address] [place], [address] ALT [Catalytic activity/Vol] 30 U/L Normal <=46 [facility] Comment on above: Performed By: #### L 500.4050, L501.2450, L100.0100 ####[facility] [address] [place], [address] AST [Catalytic activity/Vol] 35 U/L Normal <=37 [facility] Comment on above: Performed By: #### L 500.4050, L501.2450, L100.0100 ####[facility] [address] [place], [address] Bilirubin [Mass/Vol] 0.74 mg/dL Normal 0.00-1.30 [facility] Comment on above: Performed By: #### L 500.4050, L501.2450, L100.0100 ####[facility] [address] [place], [address] BUN/CRE 15.1 RATIO Normal 10-20 [facility] Comment on above: Performed By: #### L 500.4050, L501.2450, L100.0100 ####[facility] [address] [place], [address] Calcium [Mass/Vol] 9.0 mg/dL Normal 7.6-11.0 [facility] Comment on above: Performed By: #### L 500.4050, L501.2450, L100.0100 ####[facility] [address] [place], [address] Chloride [Moles/Vol] 107 mmol/L Normal 98-108 [facility] Comment on above: Performed By: #### L 500.4050, L501.2450, L100.0100 ####[facility] [address] [place], [address] CO2 [Moles/Vol] 19.9 mmol/L Low 21.0-32.0 [facility] Comment on above: Performed By: #### L 500.4050, L501.2450, L100.0100 ####[facility] [address] [place], [address] Creatinine [Mass/Vol] 0.82 mg/dL Normal 0.70-1.20 [facility] Comment on above: Performed By: #### L 500.4050, L501.2450, L100.0100 ####[facility] [address] [place], [address] ECRCL 91.26 ml/min Normal 50-250 [facility] Comment on above: Performed By: #### L 500.4050, L501.2450, L100.0100 ####[facility] [address] [place], [address] GAP 13 Normal 5-15 [facility] Comment on above: Performed By: #### L 500.4050, L501.2450, L100.0100 ####[facility] [address] [place], [address] GFR/1.73 sq M.predicted among non-blacks MDRD (S/P/Bld) [Vol rate/Area] 92 mL/min/{1.73_m2} Normal >60 [facility] Comment on above: Result Comment: mL/m in/1.73m2 CKD-EPI Creatinine Equation (2020) Performed By: #### L 500.4050, L501.2450, L100.0100 ####[facility] [address] [place], [address] Globulin (S) [Mass/Vol] 2.9 g/dL Normal 2.2-4.2 [facility] Comment on above: Performed By: #### L 500.4050, L501.2450, L100.0100 ####[facility] [address] [place], [address] Glucose [Mass/Vol] 100 mg/dL High 70-99 [facility] Comment on above: Performed By: #### L 500.4050, L501.2450, L100.0100 ####[facility] [address] [place], [address] Potassium [Moles/Vol] 3.8 mmol/L Normal 3.3-5.1 [facility] Comment on above: Performed By: #### L 500.4050, L501.2450, L100.0100 ####[facility] [address] [place], [address] Sodium [Moles/Vol] 140 mmol/L Normal 133-145 [facility] Comment on above: Performed By: #### L 500.4050, L501.2450, L100.0100 ####[facility] [address] [place], [address] T PROT 6.6 g/dL Normal 5.9-8.4 [facility] Comment on above: Performed By: #### L 500.4050, L501.2450, L100.0100 ####[facility] [address], [address] Urea nitrogen [Mass/Vol] 12 mg/dL Normal 4-19 [facility] Comment on above: Performed By: #### L 500.4050, L501.2450, L100.0100 ####[facility] [address] [place], [address] ESR Westergren method (Bld) [Velocity]on 01-23-2025 ESR (Bld) [Velocity] 30 mm/h High 0-15 [facility] Comment on above: Order Comment: Speci men Type: BLOOD SPECIMENOrdering Facility: [facility] Address: [address] [place] [address] Performed By: #### 5 7021-8, 4537-7 ####[facility] LABCLIA [id number] [address] [address] [place] Emergency Department Summary on 01-23-2025 Emergency Department Summary Normal [facility] Eosinophil percentageOrdered By: ED PROVIDER on 01-23-2025 Eosinophils/100 WBC (Bld) 10.6 % High 0-5 [facility] Erythrocyte distribution wid th ratioOrdered By: ED PROVIDER on 01-23-2025 Erythrocyte distribution width (RBC) [Ratio] 13.8 % 11.6-14.6 [facility] Erythrocyte distribution wid th standard deviationOrdered By: ED PROVIDER on 01-23-2025 Erythrocyte distribution width (RBC) [Ratio] 53.4 fl High 35.1-43.9 [facility] Ferritinon 01-23-2025 Ferritin [Mass/Vol] 101 ng/mL Normal 37-417 [facility] Comment on above: Performed By: #### L 503.6030, L503.6550, L501.9985, L503.0106 ####[facility] [address] [place], [place], [id number] GALACTOSE QT, PLASMAon 01-23 GALACTOSE QT, PLASMA 0.7 mg/dL Normal <2.0 [facility] Comment on above: Order Comment: Speci men Type: BLOOD SPECIMENOrdering Facility: [facility] Address: [address], [place] [address] Result Comment: ---- ADDITIONAL INFORMATION This test was developed and its performance characteristicsdetermined by [facility] in a manner consistent with CLIArequirements. This test has not been cleared or approved bythe U.S. Food and Drug Administration.Test Performed by:[facility] [address] Director: Elías Horta Ph.D.; CLIA# [id number] Performed By: #### G REYMUNDO ####[facility] LABCLIA [id number] [place], [place] [id number] Glomerular filtration rate ( GFR) estimation/1.73 sq m using serum, plasma, or whole bOrdered By: ED PROVIDER on 01-23-2025 GFR/1.73 sq M.predicted among non-blacks MDRD (S/P/Bld) [Vol rate/Area] 92 mL/min/{1.73_m2} >60 [facility] Comment on above: mL/min/1.73m2 CKD-EP I Creatinine Equation (2020) H AND P Exam - Hospitaliston 01-23-2025 H&P Exam - Hospitalist Normal [facility] Hematocrit Auto (Bld) [Volum e fraction]Ordered By: ED PROVIDER on 01-23-2025 Hematocrit (Bld) [Volume fraction] 31.0 % Low 40-54 [facility] Hemoglobin A1con 01-23-2025 HbA1c (Bld) [Mass fraction] 5.5 % Normal <=5.6 [facility] Comment on above: Result Comment: Norm al < 5.7 % Prediabetic 5.7 - 6.4 % Diabetic >or= 6.5 % Please note range changes. Performed By: #### L 503.6030, L503.6550, L501.9985, L503.0106 ####[facility] [address] [place], [address] Hemoglobin A1c percentageOrd ered By: Tessa Roca on 01-23-2025 HbA1c (Bld) [Mass fraction] 5.5 % <5.7 [facility] Comment on above: Normal < 5.7 % Predi abetic 5.7 - 6.4 % Diabetic >or= 6.5 % Please note range changes. Hemoglobin measurementOrdere d By: ED PROVIDER on 01-23-2025 Hemoglobin (Bld) [Mass/Vol] 10.5 g/dL Low 13.0-16.5 [facility] Immature granulocytes/100 WB C Auto (Bld)Ordered By: ED PROVIDER on 01-23-2025 Immature granulocytes/100 WBC (Bld) 0.700 % 0.0-0.9 [facility] Comment on above: IG% - Immature Granu locytes (promyelocytes, myelocytes and metamyelocytes) > 1% indicates that a LEFT SHIFT is Present. Iron measurement (mass/mass) Ordered By: Tessa Roca on 01-23-2025 Iron (Unsp spec) [Mass/Mass] 91 ug/dL 65-175 [facility] Ketones Test strip Ql (U)Ord ered By: Jae Mcclure on 01-23-2025 Ketones Ql (U) Negative Negative [facility] Laboratory - Chemistry and C hemistry - challengeOrdered By: ED PROVIDER on 01-23-2025 AST [Catalytic activity/Vol] 35 U/L <38 [facility] Lipaseon 01-23-2025 Lipase [Catalytic activity/Vol] 39 U/L Normal 13-75 [facility] Comment on above: Result Comment: Oma briones note:LIPASE revised reference range effective 22.New Lipase methodology. Expected to produce lower valuesthan the previous assay method.NEW Reference Range: 13 - 75 U/L Performed By: #### L 500.4050, L501.2450, L100.0100 ####[facility] [address] [place], [place], [address] Lipase measurementOrdered By : ED PROVIDER on 01-23-2025 Lipase [Catalytic activity/Vol] 39 U/L 13-75 [facility] Comment on above: Please note:LIPASE r evised reference range effective 22. New Lipase methodology. Expected to produce lower values than the previous assay method. NEW Reference Range: 13 - 75 U/L MCV (mean corpuscular volume ) determinationOrdered By: ED PROVIDER on 01-23-2025 MCV (RBC) [Entitic vol] 106.2 fL High 80-94 [facility] Magnesiumon 01-23-2025 Magnesium [Mass/Vol] 2.1 mg/dL Normal 1.5-2.2 [facility] Comment on above: Performed By: #### L 501.5200, L506.0200 ####[facility] [address] [place], [place], [address] Magnesium measurement (mass/ volume)Ordered By: Tessa Roca on 01-23-2025 Magnesium (Unsp spec) [Mass/Vol] 2.1 mg/dL 1.5-2.2 [facility] Mean corpuscular hemoglobin (MCH) determinationOrdered By: ED PROVIDER on 01-23-2025 MCH (RBC) [Entitic mass] 36.0 pg High 27.0-32.0 [facility] Mean corpuscular hemoglobin concentration (MCHC) determinationOrdered By: ED PROVIDER on 01-23-2025 MCHC (RBC) [Mass/Vol] 33.9 g/dL 32-36 [facility] Mean platelet volume determi nationOrdered By: ED PROVIDER on 01-23-2025 Platelet mean volume (Bld) [Entitic vol] 9.5 fL 6.2-12.0 [facility] Microscopic analysis of urin e for red blood cells (RBC)Ordered By: Jae Mcclure on 01-23-2025 Microscopic analysis of urine for red blood cells (RBC) 0-5 SEEN /hpf 0-5 [facility] Monocyte percentageOrdered B y: ED PROVIDER on 01-23-2025 Monocytes/100 WBC (Bld) 13.7 % High 0-10 [facility] Mucus LM Ql (Urine sed)Order ed By: Jae Mcclure on 01-23-2025 Mucus Ql (Urine sed) 0 SEEN /hpf [facility] Neutrophil percentageOrdered By: ED PROVIDER on 01-23-2025 Neutrophils/100 WBC (Bld) 58.3 % 47-70 [facility] Nitrite Test strip Ql (U)Ord ered By: Jae Mcclure on 01-23-2025 Nitrite Ql (U) Negative Negative [facility] No Panel InformationOrdered By: Tessa Roca on 01-23-2025 Unsaturated Iron Binding Capacity 179 ug/dL Low 228-428 [facility] Nuclear Ab IA Ql (S)on 01-23 GALLO SCR QUAL Negative Normal Negative [facility] Comment on above: Order Comment: Speci men Type: BLOOD SPECIMENOrdering Facility: [facility] Address: [address] [place] [address] Result Comment: The qualitative antinuclear antibody screen test performed using the following antigens: dsDNA, Chromatin, Ribosomal P, SS-A 60, SS-A 52, SS-B, Sm, SmRNP, RESEARCH PROJECT MANAGER A, RESEARCH PROJECT MANAGER 68, Scl-70, Francia-1, and Centromere B. Methodology: Multiplex flow immunoassay. Performed By: #### 4 7383-5 ####[facility] LABCLIA [id number] [place] [address] [place] Nucleated red blood cell per centageOrdered By: ED PROVIDER on 01-23-2025 Nucleated RBC/100 WBC (Bld) [Ratio] 0 % 0-5 [facility] Platelet countOrdered By: ED PROVIDER on 01-23-2025 Platelets (Bld) [#/Vol] 167 10*3/uL 150-450 [facility] Potassium measurement (mass/ volume)Ordered By: ED PROVIDER on 01-23-2025 Potassium (Unsp spec) [Mass/Vol] 3.8 mmol/L 3.3-5.1 [facility] Protein Test strip Ql (U)Ord ered By: Jae Mcclure on 01-23-2025 Protein Ql (U) Negative Negative [facility] RBC Auto (Bld) [#/Vol]Ordere d By: ED PROVIDER on 01-23-2025 RBC (Bld) [#/Vol] 2.92 10*6/uL Low 4.6-6.2 [facility] Serum creatinine measurement (mass/volume)Ordered By: ED PROVIDER on 01-23-2025 Creatinine [Mass/Vol] 0.82 mg/dL 0.70-1.20 [facility] Serum globulin measurementOr dered By: ED PROVIDER on 01-23-2025 Globulin (S) [Mass/Vol] 2.9 g/dL 2.2-4.2 [facility] Serum glucose measurement (m ass/volume)Ordered By: ED PROVIDER on 01-23-2025 Glucose [Mass/Vol] 100 mg/dL High 70-99 [facility] Serum or plasma alanine guevara otransferase (ALT) measurementOrdered By: ED PROVIDER on 01-23-2025 ALT [Catalytic activity/Vol] 30 U/L <47 [facility] Serum or plasma albumin reid urement (mass/volume)Ordered By: ED PROVIDER on 01-23-2025 Albumin [Mass/Vol] 3.8 g/dL 3.4-4.8 [facility] Serum or plasma albumin/glob ulin mass ratioOrdered By: ED PROVIDER on 01-23-2025 Albumin/Globulin [Mass ratio] 1.3 {ratio} 0.9-2.4 [facility] Serum or plasma alkaline adelfo sphatase measurementOrdered By: ED PROVIDER on 01-23-2025 ALP [Catalytic activity/Vol] 103 U/L 40-129 [facility] Serum or plasma calcium reid urement (mass/volume)Ordered By: ED PROVIDER on 01-23-2025 Calcium [Mass/Vol] 9.0 mg/dL 7.6-11.0 [facility] Serum or plasma ferritin steve surement (mass/volume)Ordered By: Tessa Roca on 01-23-2025 Ferritin [Mass/Vol] 101 ng/mL 37-417 [facility] Serum or plasma iron saturat ion measurement (mass fraction)Ordered By: Tessa Roca on 01-23-2025 Iron saturation [Mass fraction] 34.0 % 9-55 [facility] Serum or plasma urea nitroge n measurement (mass/volume)Ordered By: ED PROVIDER on 01-23-2025 Urea nitrogen [Mass/Vol] 12 mg/dL 4-19 [facility] Sodium levelOrdered By: ED Juan BERNARDO on 01-23-2025 Sodium [Moles/Vol] 140 mmol/L 133-145 [facility] Squamous epithelial cells de tection in urine sediment by light microscopyOrdered By: Jae Mcclure on 01-23-2025 Epithelial cells.squamous LM Ql (Urine sed) 0-5 SEEN /hpf 0-5 [facility] THYROID PEROXIDASE ANTIBODYo n 01-23-2025 TPO Ab Qn [IU]/mL Normal <5.6 [facility] Comment on above: Order Comment: Medina peck Type: BLOOD SPECIMENOrdering Facility: [facility] Address: [address] [place] [address] Result Comment: Thyr oid Peroxidase Antibody test is used as an aid in diagnosis of autoimmune thyroid disease. Clinical correlation is required. Performed By: #### M ICRO ####[facility] LABCLIA [id number] [place] [address] [place] TRYPTASE BLOODon 01-23-2025 Tryptase [Mass/Vol] 10.1 ug/L High <8.4 [facility] Comment on above: Order Comment: Medina peck Type: BLOOD SPECIMENOrdering Facility: [facility] Address: [address] [place], [place] [id number] Performed By: #### T RYPT ####[facility] LABCLIA [id number] [place] [address] [place] Total proteinOrdered By: ED PROVIDER on 01-23-2025 Protein [Mass/Vol] 6.6 g/dL 5.9-8.4 [facility] Type AND Screenon 01-23-2025 Ab SCREEN GEL Negative Normal [facility] Comment on above: Order Comment: Has p t arrived? YWRISTBAND: [id number] Performed By: #### B TS ####[facility] [address] [place], [address] Urinalysis, Completeon 01-23 EPI,SQUAMOUS 0-5 SEEN Normal 0-5 [facility] Comment on above: Order Comment: CLEAN CATCH Performed By: #### L 400.0001 ####[facility] [address] [facility] [address] RBC 0-5 SEEN Normal 0-5 [facility] Comment on above: Order Comment: CLEAN CATCH Performed By: #### L 400.0001 ####[facility] [address] [place], [address] WBC 10-25 SEEN Normal 0-5 [facility] Comment on above: Order Comment: CLEAN CATCH Performed By: #### L 400.0001 ####[facility] [address] [place], [address] BACTERIA 0 SEEN Normal None Seen [facility] Comment on above: Order Comment: CLEAN CATCH Performed By: #### L 400.0001 ####[facility] [address] [place], [address] Mucus Ql (Urine sed) 0 SEEN Normal [facility] Comment on above: Order Comment: CLEAN CATCH Performed By: #### L 400.0001 ####[facility] [address] [place], [address] Urine clarityOrdered By: Jett Mcclure on 01-23-2025 Clarity (U) Clear Clear [facility] Urine color determinationOrd ered By: Jae Mcclure on 01-23-2025 Color (U) Straw Yellow [facility] Urine cultureOrdered By: Gennaro Blanco on 01-23-2025 Bacteria identified Cx Nom (U) Culture exhibits no growth. [facility] Urine glucose detectionOrder ed By: Jae Mcclure on 01-23-2025 Glucose Ql (U) Normal mg/dl Normal [facility] Urine leukocyte esterase det ection by dipstickOrdered By: Jae Mcclure on 01-23-2025 Leukocyte esterase Test strip Ql (U) 100 /ul High Negative [facility] Urine pHOrdered By: Jae boyle on 01-23-2025 pH (U) 6.0 [pH] 5.0 - 8.0 [facility] Urine sediment bacteria coun t by microscopy (number/high power field)Ordered By: Jae Mcclure on 01-23-2025 Bacteria LM.HPF (Urine sed) [#/Area] 0 /[HPF] None Seen [facility] Urine specific gravity measu rementOrdered By: Jae Mcclure on 01-23-2025 Specific gravity (U) [Rel density] 1.015 1.002-1.030 [facility] Urine urobilinogen measureme ntOrdered By: Jae Mcclure on 01-23-2025 Urobilinogen Ql (U) Normal mg/dl Normal [facility] Vitamin B12on 01-23-2025 Cobalamin (Vitamin B12) [Mass/Vol] 1003 pg/mL High 180-914 [facility] Comment on above: Performed By: #### L 503.6030, L503.6550, L501.9985, L503.0106 ####[facility] [address] [place], [place], [id number] Vitamin B12 ser/plasOrdered By: Tessa Roca on 01-23-2025 Cobalamin (Vitamin B12) [Mass/Vol] 1003 pg/mL High 180-914 [facility] White blood cell (WBC) count Ordered By: ED PROVIDER on 01-23-2025 WBC (Bld) [#/Vol] 5.4 10*3/uL 4.4-11.0 [facility] White blood cell countOrdere d By: Jae Mcclure on 01-23-2025 White blood cell count 10-25 SEEN /hpf 0-5 [facility] Culture, Blood (WB)on 2024 CUB No growth in 5 days. Normal [facility] Comment on above: Performed By: #### M 200.1000 ####[facility] [address] [place], [address] Immunoglobulin Andrew 5 IMMUNOGLOB E QN 214 IU/mL Normal 6-495 [facility] Comment on above: Result Comment: Perf ormed at: [facility] Lab[address] [id number] Director: Zafar Browne MD, Phone: [phone] Performed By: #### L 3200.1600, L3400.5105, L503.7505, L509.7001 ####[facility] [address] [place], [place], [address] Tryptaseon 01-02-2025 TRYPTASE 6.8 ug/L Normal 2.2-13.2 [facility] Comment on above: Performed By: #### L 3200.1600, L3400.5105, L503.7505, L509.7001 ####[facility] [address] [place], [place], [address] CNOVon 01-01-2025 CNOV Normal [facility] C1 EST Inhibitor, Functional on 12-31-2024 C1 EST INH FUNC 102 Normal . [facility] Comment on above: Result Comment: Resu lt Units: %mean normal Abnormal <41 Equivocal 41 - 67 Normal >67Performed at: [address] [id number] Director: Zafar Browne MD, Phone: [phone] Performed By: #### L 3400.4350, L500.4050, L100.0100 ####[facility] [address] [place], [place], [address] Hepatitis Panel Acuteon 06- COMMENT Comment Normal . [facility] Comment on above: Result Comment: Not infected with HCV unless early or acute infection issuspected (which may be delayed in an immunocompromisedindividual), or other evidence exists to indicate HCVinfection.Performed at: [facility] Lab[address] [id number] Director: José Miguel Alba PhD, Phone: [phone] Performed By: #### L 3000.0375 ####[facility] [address] [place], [place], [address] HEP B CORE,IgM Negative Normal Negative [facility] Comment on above: Performed By: #### L 3000.0375 ####[facility] [address] [place], [place], [address] HEP B SURF AG Negative Normal Negative [facility] Comment on above: Performed By: #### L 3000.0375 ####[facility] [address] [place], [place], [address] HEP C VIRUS AB Non-Reactive Normal Non Reactive [facility] Comment on above: Performed By: #### L 3000.0375 ####[facility] [address] [place], [place], [address] HEPATITIS A-IgM Negative Normal Negative [facility] Comment on above: Result Comment: A ne gative anti-HAV IgM result suggests no recent orcurrent HAV infection. Performed By: #### L 3000.0375 ####[facility] [address] [place], [place], [address] Respiratory Cultureon 2024 RESPC Normal [facility] Comment on above: Performed By: #### M 100.2400, M100.2000 ####[facility] [address] [place], [place], [address] Absolute lymphocyte countOrd ered By: Alexi Olivas on 12-30-2024 Lymphocytes Auto (Unsp spec) [#/Vol] 0.45 10*3/uL Low 0.83-4.51 [facility] Absolute neutrophil countOrd ered By: Alexi Olivas on 12-30-2024 Neutrophils (Bld) [#/Vol] 10.5 10*3/uL High 2.0-7.7 [facility] Anion gap in Serum or Plasma Ordered By: Alexi Olivas on 12-30-2024 Anion gap [Moles/Vol] 10 mmol/L 5-15 [facility] Automated lymphocyte count a s percentage of total leukocytesOrdered By: Alexi Olivas on 12-30-2024 Lymphocytes/100 WBC Auto (Unsp spec) 3.8 % Low 19-41 [facility] BUN/creatinine ratioOrdered By: Alexi Olivas on 12-30-2024 Urea nitrogen/Creatinine [Mass ratio] 29.0 mg/mg High 10-20 [facility] Basic Metabolic Profile (BMP )on 12-30-2024 BUN/CRE 29.0 RATIO High 10-20 [facility] Comment on above: Performed By: #### L 500.2500, L100.0100 ####[facility] [address] [place], [address] Calcium [Mass/Vol] 9.0 mg/dL Normal 7.6-11.0 [facility] Comment on above: Performed By: #### L 500.2500, L100.0100 ####[facility] [address] [place], [address] Chloride [Moles/Vol] 107 mmol/L Normal 98-108 [facility] Comment on above: Performed By: #### L 500.2500, L100.0100 ####[facility] [address] [place], [address] CO2 [Moles/Vol] 24.1 mmol/L Normal 21.0-32.0 [facility] Comment on above: Performed By: #### L 500.2500, L100.0100 ####[facility] [address] [place], [address] Creatinine [Mass/Vol] 0.70 mg/dL Normal 0.70-1.20 [facility] Comment on above: Performed By: #### L 500.2500, L100.0100 ####[facility] [address] [place], [address] ECRCL 94.14 ml/min Normal 50-250 [facility] Comment on above: Performed By: #### L 500.2500, L100.0100 ####[facility] [address] [place], [address] GAP 10 Normal 5-15 [facility] Comment on above: Performed By: #### L 500.2500, L100.0100 ####[facility] [address] [place], [address] GFR/1.73 sq M.predicted among non-blacks MDRD (S/P/Bld) [Vol rate/Area] 97 mL/min/{1.73_m2} Normal >60 [facility] Comment on above: Result Comment: mL/m in/1.73m2 CKD-EPI Creatinine Equation (2020) Performed By: #### L 500.2500, L100.0100 ####[facility] [address] [place], [address] Glucose [Mass/Vol] 125 mg/dL High 70-99 [facility] Comment on above: Performed By: #### L 500.2500, L100.0100 ####[facility] [address] [place], [address] Potassium [Moles/Vol] 4.0 mmol/L Normal 3.3-5.1 [facility] Comment on above: Performed By: #### L 500.2500, L100.0100 ####[facility] [address] [place], [address] Sodium [Moles/Vol] 141 mmol/L Normal 133-145 [facility] Comment on above: Performed By: #### L 500.2500, L100.0100 ####[facility] [address] [place], [address] Urea nitrogen [Mass/Vol] 20 mg/dL High 4-19 [facility] Comment on above: Performed By: #### L 500.2500, L100.0100 ####[facility] [address] [place], [address] Basophil percentageOrdered B y: Alexi Feldmanrosita on 12-30-2024 Basophils/100 WBC (Bld) 0.2 % 0-1 [facility] CBC W/Diff, Automatedon Absolute Lymph 0.45 X10 3/uL Low 0.83-4.51 [facility] Comment on above: Performed By: #### L 500.2500, L100.0100 ####[facility] [address] [place], [address] Absolute Neut 10.5 X10 3/uL High 2.0-7.7 [facility] Comment on above: Performed By: #### L 500.2500, L100.0100 ####[facility] [address] [place], [address] Basophils/100 WBC (Bld) 0.2 % Normal 0-1 [facility] Comment on above: Performed By: #### L 500.2500, L100.0100 ####[facility] [address] [place], [address] Eosinophils/100 WBC (Bld) 0.0 % Normal 0-5 [facility] Comment on above: Performed By: #### L 500.2500, L100.0100 ####[facility] [address] [place], [address] Erythrocyte distribution width (RBC) [Ratio] 13.7 % Normal 11.6-14.6 [facility] Comment on above: Performed By: #### L 500.2500, L100.0100 ####[facility] [address] [place], [address] Hematocrit (Bld) [Volume fraction] 40.2 % Normal 40-54 [facility] Comment on above: Performed By: #### L 500.2500, L100.0100 ####[facility] [address] [place], [address] Hemoglobin (Bld) [Mass/Vol] 13.5 g/dL Normal 13.0-16.5 [facility] Comment on above: Performed By: #### L 500.2500, L100.0100 ####[facility] [address] [place], [address] IG% 1.000 High 0.0-0.9 [facility] Comment on above: Result Comment: IG% - Immature Granulocytes (promyelocytes, myelocytes andmetamyelocytes) > 1% indicates that a LEFT SHIFT is Present. Performed By: #### L 500.2500, L100.0100 ####[facility] [address] [place], [address] Lymphocytes/100 WBC (Bld) 3.8 % Low 19-41 [facility] Comment on above: Performed By: #### L 500.2500, L100.0100 ####[facility] [address] [place], [address] MCH (RBC) [Entitic mass] 35.9 pg High 27.0-32.0 [facility] Comment on above: Performed By: #### L 500.2500, L100.0100 ####[facility] [address], [address] MCHC (RBC) [Mass/Vol] 33.6 g/dL Normal 32-36 [facility] Comment on above: Performed By: #### L 500.2500, L100.0100 ####[facility] [address], [address] MCV (RBC) [Entitic vol] 106.9 fL High 80-94 [facility] Comment on above: Performed By: #### L 500.2500, L100.0100 ####[facility] [address] [place], [address] Monocytes/100 WBC (Bld) 6.4 % Normal 0-10 [facility] Comment on above: Performed By: #### L 500.2500, L100.0100 ####[facility] [address] [place], [address] Neutrophils/100 WBC (Bld) 88.6 % High 47-70 [facility] Comment on above: Performed By: #### L 500.2500, L100.0100 ####[facility] [address], [address] Nucleated RBC (Bld) [#/Vol] 0 10*3/uL Normal 0-5 [facility] Comment on above: Performed By: #### L 500.2500, L100.0100 ####[facility] [address], [address] Platelet mean volume (Bld) [Entitic vol] 9.8 fL Normal 6.2-12.0 [facility] Comment on above: Performed By: #### L 500.2500, L100.0100 ####[facility] [address], [address] Platelets (Bld) [#/Vol] 185 10*3/uL Normal 150-450 [facility] Comment on above: Performed By: #### L 500.2500, L100.0100 ####[facility] [address], [address] RBC (Bld) [#/Vol] 3.76 10*6/uL Low 4.6-6.2 [facility] Comment on above: Performed By: #### L 500.2500, L100.0100 ####[facility] [address] [place], [address] RDW SD 54.1 fl High 35.1-43.9 [facility] Comment on above: Performed By: #### L 500.2500, L100.0100 ####[facility] [address] [place], [address] WBC (Bld) [#/Vol] 11.8 10*3/uL High 4.4-11.0 [facility] Comment on above: Performed By: #### L 500.2500, L100.0100 ####[facility] [address], [address] Carbon dioxide, total [Moles /volume] in Central venous bloodOrdered By: Alexi Olivas on 12-30-2024 CO2 [Moles/Vol] 24.1 mmol/L 21.0-32.0 [facility] Chloride assayOrdered By: Domenico Olivas on 12-30-2024 Chloride [Moles/Vol] 107 mmol/L 98-108 [facility] Electrocardiogram reportOrde red By: Sabrina Arrington on 12-30-2024 EKG study [facility] [address] [place] [address] 12 Lead EKG 12/27/24 1414 MR#: [id number] Acct: [id number] Name: NAZARIO HUTTON Rep #:[id number] : 1950 74 From: Sabrina cuevas MD [...] Abnormal ECG Confirmed by HUGH LUNA, MORRIS ([id number]), publications editor CAREY BAUER ([id number]) on12/30/2024 6:52:47 AM Referred By: Confirmed By: MORRIS ARRINGTON MD 12/30/2452 Date _ Sabrina Arrington MD CC: Dr. Alexi Olivas DO; Dr. Valeriano Choe MD; Dr. Marino Holguin MD ~ Signed [facility] Other Phone: Eosinophil percentageOrdered By: Alexi Olivas on 12-30-2024 Eosinophils/100 WBC (Bld) 0.0 % 0-5 [facility] Erythrocyte distribution wid th ratioOrdered By: Alexi Olivas on 12-30-2024 Erythrocyte distribution width (RBC) [Ratio] 13.7 % 11.6-14.6 [facility] Erythrocyte distribution wid th standard deviationOrdered By: Alexi Olivas on 12-30-2024 Erythrocyte distribution width (RBC) [Ratio] 54.1 fl High 35.1-43.9 [facility] Glomerular filtration rate ( GFR) estimation/1.73 sq m using serum, plasma, or whole bOrdered By: Alexi Olivas on 12-30-2024 GFR/1.73 sq M.predicted among non-blacks MDRD (S/P/Bld) [Vol rate/Area] 97 mL/min/{1.73_m2} >60 [facility] Comment on above: mL/min/1.73m2 CKD-EP I Creatinine Equation (2020) Gram Stainon 12-30-2024 GS see mar Acceptable Specimen? Yes (<25 Epithelial cells per/lpf) Gram Stain 3+ Gram positive cocci 2+ Gram positive rods 4+ White Blood Cells Normal [facility] Comment on above: Performed By: #### M 100.2400, M100.2000 ####[facility] [address] [place], [address] GS Acceptable Specimen? Yes (<25 Epithelial cells per/lpf) Gram Stain 2+ Gram positive cocci 1+ Gram positive rods 3+ White Blood Cells Normal [facility] Comment on above: Performed By: #### M 100.2000, M100.2400 ####[facility] [address] [place], [place], [address] Hematocrit Auto (Bld) [Volum e fraction]Ordered By: Alexi Olivas on 12-30-2024 Hematocrit (Bld) [Volume fraction] 40.2 % 40-54 [facility] Hemoglobin measurementOrdere d By: Alexi Olivas on 12-30-2024 Hemoglobin (Bld) [Mass/Vol] 13.5 g/dL 13.0-16.5 [facility] Immature granulocytes/100 WB C Auto (Bld)Ordered By: Alexi Olivas on 12-30-2024 Immature granulocytes/100 WBC (Bld) 1.000 % High 0.0-0.9 [facility] Comment on above: IG% - Immature Granu locytes (promyelocytes, myelocytes and metamyelocytes) > 1% indicates that a LEFT SHIFT is Present. MCV (mean corpuscular volume ) determinationOrdered By: Alexi Olivas on 12-30-2024 MCV (RBC) [Entitic vol] 106.9 fL High 80-94 [facility] Mean corpuscular hemoglobin (MCH) determinationOrdered By: Alexi Olivas on 12-30-2024 MCH (RBC) [Entitic mass] 35.9 pg High 27.0-32.0 [facility] Mean corpuscular hemoglobin concentration (MCHC) determinationOrdered By: Alexi Olivas on 12-30-2024 MCHC (RBC) [Mass/Vol] 33.6 g/dL 32-36 [facility] Mean platelet volume determi nationOrdered By: Alexi Olivas on 12-30-2024 Platelet mean volume (Bld) [Entitic vol] 9.8 fL 6.2-12.0 [facility] Monocyte percentageOrdered B y: Alexi Olivas on 12-30-2024 Monocytes/100 WBC (Bld) 6.4 % 0-10 [facility] Neutrophil percentageOrdered By: Alexi Olivas on 12-30-2024 Neutrophils/100 WBC (Bld) 88.6 % High 47-70 [facility] Nucleated red blood cell per centageOrdered By: Alexi Olivas on 12-30-2024 Nucleated RBC/100 WBC (Bld) [Ratio] 0 % 0-5 [facility] Platelet countOrdered By: Domenico Olivas on 12-30-2024 Platelets (Bld) [#/Vol] 185 10*3/uL 150-450 [facility] Potassium measurement (mass/ volume)Ordered By: Alexi Olivas on 12-30-2024 Potassium (Unsp spec) [Mass/Vol] 4.0 mmol/L 3.3-5.1 [facility] RBC Auto (Bld) [#/Vol]Ordere d By: Alexi Olivas on 12-30-2024 RBC (Bld) [#/Vol] 3.76 10*6/uL Low 4.6-6.2 [facility] Serum creatinine measurement (mass/volume)Ordered By: Alexi Olivas on 12-30-2024 Creatinine [Mass/Vol] 0.70 mg/dL 0.70-1.20 [facility] Serum glucose measurement (m ass/volume)Ordered By: Alexi Olivas on 12-30-2024 Glucose [Mass/Vol] 125 mg/dL High 70-99 [facility] Serum or plasma calcium reid urement (mass/volume)Ordered By: Alexi Olivas on 12-30-2024 Calcium [Mass/Vol] 9.0 mg/dL 7.6-11.0 [facility] Serum or plasma urea nitroge n measurement (mass/volume)Ordered By: Alexi Olivas on 12-30-2024 Urea nitrogen [Mass/Vol] 20 mg/dL High 4-19 [facility] Sodium levelOrdered By: Alexi Olivas on 12-30-2024 Sodium [Moles/Vol] 141 mmol/L 133-145 [facility] White blood cell (WBC) count Ordered By: Alexi Olivas on 12-30-2024 WBC (Bld) [#/Vol] 11.8 10*3/uL High 4.4-11.0 [facility] Assessment of wrist artery p atency prior to arterial punctureOrdered By: Alexi Olivas on 12-29-2024 Arterial patency Wrist artery --pre arterial puncture Positive [facility] Basic Metabolic Profile (BMP )on 12-29-2024 BUN/CRE 20.7 RATIO High 10-20 [facility] Comment on above: Performed By: #### L 3890.6006, L500.2500, L100.0100 ####[facility] [address] [place], [address] Calcium [Mass/Vol] 9.1 mg/dL Normal 7.6-11.0 [facility] Comment on above: Performed By: #### L 3890.6006, L500.2500, L100.0100 ####[facility] [address] [place], [address] Chloride [Moles/Vol] 105 mmol/L Normal 98-108 [facility] Comment on above: Performed By: #### L 3890.6006, L500.2500, L100.0100 ####[facility] [address] [place], [address] CO2 [Moles/Vol] 21.8 mmol/L Normal 21.0-32.0 [facility] Comment on above: Performed By: #### L 3890.6006, L500.2500, L100.0100 ####[facility] [address] [place], [address] Creatinine [Mass/Vol] 0.80 mg/dL Normal 0.70-1.20 [facility] Comment on above: Performed By: #### L 3890.6006, L500.2500, L100.0100 ####[facility] [address] [place], [address] ECRCL 94.28 ml/min Normal 50-250 [facility] Comment on above: Performed By: #### L 3890.6006, L500.2500, L100.0100 ####[facility] [address] [place], [address] GAP 12 Normal 5-15 [facility] Comment on above: Performed By: #### L 3890.6006, L500.2500, L100.0100 ####[facility] [address] [place], [address] GFR/1.73 sq M.predicted among non-blacks MDRD (S/P/Bld) [Vol rate/Area] 93 mL/min/{1.73_m2} Normal >60 [facility] Comment on above: Result Comment: mL/m in/1.73m2 CKD-EPI Creatinine Equation (2020) Performed By: #### L 3890.6006, L500.2500, L100.0100 ####[facility] [address] [place], [address] Glucose [Mass/Vol] 169 mg/dL High 70-99 [facility] Comment on above: Performed By: #### L 3890.6006, L500.2500, L100.0100 ####[facility] [address] [place], [address] Potassium [Moles/Vol] 4.3 mmol/L Normal 3.3-5.1 [facility] Comment on above: Performed By: #### L 3890.6006, L500.2500, L100.0100 ####[facility] [address] [place], [address] Sodium [Moles/Vol] 139 mmol/L Normal 133-145 [facility] Comment on above: Performed By: #### L 3890.6006, L500.2500, L100.0100 ####[facility] [address] [place], [address] Urea nitrogen [Mass/Vol] 17 mg/dL Normal 4-19 [facility] Comment on above: Performed By: #### L 3890.6006, L500.2500, L100.0100 ####[facility] [address] [place], [address] [facility] TATY TEST Positive Normal [facility] Comment on above: Performed By: #### L 9000.0800 ####[facility] [address] [place], [address] Base excess Calc (Bld) [Moles/Vol] 4 mmol/L High -2 to +2 [facility] Comment on above: Performed By: #### L 9000.0800 ####[facility] [address] [place], [address] Blood Gas Type ART Normal [facility] Comment on above: Performed By: #### L 9000.0800 ####[facility] [address] [place], [address] CO2 [Moles/Vol] 29 mmol/L Normal [facility] Comment on above: Performed By: #### L 9000.0800 ####[facility] [address] [place], [address] FI02 30.0 Normal [facility] Comment on above: Performed By: #### L 9000.0800 ####[facility] [address] [place], [address] HCO3 (Bld) [Moles/Vol] 27.9 mmol/L High 22-26 [facility] Comment on above: Performed By: #### L 9000.0800 ####[facility] [address] [place], [address] Mode AC Normal [facility] Comment on above: Performed By: #### L 9000.0800 ####[facility] [address] [place], [address] O2 Delivery Dev ET Tube Normal [facility] Comment on above: Performed By: #### L 9000.0800 ####[facility] [address] [place], [address] pCO2 40.5 mmHg Normal 35-45 [facility] Comment on above: Performed By: #### L 9000.0800 ####[facility] [address] [place], [address] PEEP 5 Normal [facility] Comment on above: Performed By: #### L 9000.0800 ####[facility] [address] [place], [address] pH (Bld) 7.45 [pH] Normal 7.35-7.45 [facility] Comment on above: Performed By: #### L 9000.0800 ####[facility] [address] [place], [address] PO2 76 mmHG Normal 75-100 [facility] Comment on above: Performed By: #### L 9000.0800 ####[facility] [address] [place], [address] RR 14 Normal [facility] Comment on above: Performed By: #### L 9000.0800 ####[facility] [address] [place], [address] SITE R Radial Normal [facility] Comment on above: Performed By: #### L 9000.0800 ####[facility] [address] [place], [address] SO2 96 Normal 95-99 [facility] Comment on above: Performed By: #### L 9000.0800 ####[facility] [address] [place], [address] Vt 500.0 mL Normal [facility] Comment on above: Performed By: #### L 9000.0800 ####[facility] [address] [place], [address] Blood base excess determinat ionOrdered By: Alexi Olivas on 12-29-2024 Base excess Calc (BldV) [Moles/Vol] 4 mmol/L High -2-2 [facility] Blood bicarbonate measuremen tOrdered By: Alexi Olivas on 12-29-2024 HCO3 (Bld) [Moles/Vol] 27.9 mmol/L High 22-26 [facility] Blood cultureOrdered By: Donnie Myers on 12-29-2024 Bacteria identified Cx Nom (Bld) No growth in 5 days. [facility] CBC W/Diff, Automatedon 06- Absolute Lymph 0.43 X10 3/uL Low 0.83-4.51 [facility] Comment on above: Performed By: #### L 3890.6006, L500.2500, L100.0100 ####[facility] [address] [place], [address] Absolute Neut 13.7 X10 3/uL High 2.0-7.7 [facility] Comment on above: Performed By: #### L 3890.6006, L500.2500, L100.0100 ####[facility] [address] [place], [address] Basophils/100 WBC (Bld) 0.1 % Normal 0-1 [facility] Comment on above: Performed By: #### L 3890.6006, L500.2500, L100.0100 ####[facility] [address], [address] Eosinophils/100 WBC (Bld) 0.0 % Normal 0-5 [facility] Comment on above: Performed By: #### L 3890.6006, L500.2500, L100.0100 ####[facility] [address] [place], [address] Erythrocyte distribution width (RBC) [Ratio] 13.5 % Normal 11.6-14.6 [facility] Comment on above: Performed By: #### L 3890.6006, L500.2500, L100.0100 ####[facility] [address] [place], [address] Hematocrit (Bld) [Volume fraction] 42.1 % Normal 40-54 [facility] Comment on above: Performed By: #### L 3890.6006, L500.2500, L100.0100 ####[facility] [address] [facility] [place], [address] Hemoglobin (Bld) [Mass/Vol] 14.3 g/dL Normal 13.0-16.5 [facility] Comment on above: Performed By: #### L 3890.6006, L500.2500, L100.0100 ####[facility] [address] [place], [address] IG% 0.500 Normal 0.0-0.9 [facility] Comment on above: Result Comment: IG% - Immature Granulocytes (promyelocytes, myelocytes andmetamyelocytes) > 1% indicates that a LEFT SHIFT is Present. Performed By: #### L 3890.6006, L500.2500, L100.0100 ####[facility] [address] [place], [address] Lymphocytes/100 WBC (Bld) 2.9 % Low 19-41 [facility] Comment on above: Performed By: #### L 3890.6006, L500.2500, L100.0100 ####[facility] [address] [place], [address] MCH (RBC) [Entitic mass] 35.8 pg High 27.0-32.0 [facility] Comment on above: Performed By: #### L 3890.6006, L500.2500, L100.0100 ####[facility] [address], [address] MCHC (RBC) [Mass/Vol] 34.0 g/dL Normal 32-36 [facility] Comment on above: Performed By: #### L 3890.6006, L500.2500, L100.0100 ####[facility] [address] [place], [address] MCV (RBC) [Entitic vol] 105.5 fL High 80-94 [facility] Comment on above: Performed By: #### L 3890.6006, L500.2500, L100.0100 ####[facility] [address], [address] Monocytes/100 WBC (Bld) 4.4 % Normal 0-10 [facility] Comment on above: Performed By: #### L 3890.6006, L500.2500, L100.0100 ####[facility] [address], [address] Neutrophils/100 WBC (Bld) 92.1 % High 47-70 [facility] Comment on above: Performed By: #### L 3890.6006, L500.2500, L100.0100 ####[facility] [address] [place], [address] Nucleated RBC (Bld) [#/Vol] 0 10*3/uL Normal 0-5 [facility] Comment on above: Performed By: #### L 3890.6006, L500.2500, L100.0100 ####[facility] [address] [place], [address] Platelet mean volume (Bld) [Entitic vol] 10.0 fL Normal 6.2-12.0 [facility] Comment on above: Performed By: #### L 3890.6006, L500.2500, L100.0100 ####[facility] [address], [address] Platelets (Bld) [#/Vol] 198 10*3/uL Normal 150-450 [facility] Comment on above: Performed By: #### L 3890.6006, L500.2500, L100.0100 ####[facility] [address], [address] RBC (Bld) [#/Vol] 3.99 10*6/uL Low 4.6-6.2 [facility] Comment on above: Performed By: #### L 3890.6006, L500.2500, L100.0100 ####[facility] [address] [place], [address] RDW SD 52.8 fl High 35.1-43.9 [facility] Comment on above: Performed By: #### L 3890.6006, L500.2500, L100.0100 ####[facility] [address] [place], [address] WBC (Bld) [#/Vol] 14.8 10*3/uL High 4.4-11.0 [facility] Comment on above: Performed By: #### L 3890.6006, L500.2500, L100.0100 ####[facility] [address] [place], [address] Chest 1 View (Portable)on Chest 1 View (Portable) Normal [facility] HIVon 12-29-2024 HIV Non-Reactive Normal Nonreactive [facility] Comment on above: Result Comment: Non- ReactiveReactiveRepeatedly reactive samples must be confirmed according toCDC recommended confirmatory algorithms. The subresults foreither HIVAG or AHIV can be used as an aid in the selectionof the confirmation algorithm for reactive samples.[facility].Order the HIV antibody detection and differentiation:#[id number] Performed By: #### L 3890.6006, L500.2500, L100.0100 ####[facility] [address] [place], [place], [address] Influenza virus A and B and SARS-CoV-2 (COVID-19) and Respiratory syncytial virus RNAOrdered By: Mohit Myers on 12-29-2024 SARS-CoV-2 (COVID-19) RNA DEMARIO+probe Ql (Unsp spec) [facility] M100.678on 12-29-2024 M100.678 Pending SARS-CoV-2 (COVID 19) Negative INFLUENZA A Negative INFLUENZA B Negative RSV PCR Negative Normal [facility] Comment on above: Performed By: #### M 100.678 ####[facility] [address] [place], [place], [address] Measurement, pHOrdered By: Courtney Olivas on 12-29-2024 pH (Unsp spec) 7.45 [pH] 7.35-7.45 [facility] No Panel InformationOrdered By: Alexi Olivas on 12-29-2024 Bedside Blood Gas PEEP 5 [facility] Blood Gas Respiration Rate 14 [facility] Blood Gas Sample Site R Radial [facility] Blood Gas Specimen Type ART [facility] Blood Gas Tidal Volume 500.0 mL [facility] Blood Gas Vent Mode AC [facility] Oxygen Delivery Device ET Tube [facility] No Panel InformationOrdered By: Mohit Myers on 12-29-2024 Hepatitis C Antibody Comment Comment . [facility] [facility] Comment on above: Not infected with HC V unless early or acute infection issuspected (which may be delayed in an immunocompromisedindividual), or other evidence exists to indicate HCVinfection.Performed at: [facility] [id number] Director: José Miguel Alba PhD, Phone: [phone] HIV (1&2) Antibody Non-Reactive Nonreactive [facility] Comment on above: Non-ReactiveReactive Repeatedly reactive samples must be confirmed according to CDC recommended confirmatory algorithms. The subresults for either HIVAG or AHIV can be used as an aid in the selection of the confirmation algorithm for reactive samples.Send out specimens with Reactive results to [facility] for confirmation.Order the HIV antibody detection and differentiation: #[id number] Serum or plasma hepatitis B virus surface antigen detection by immunoassayOrdered By: Mohit Myers on 12-29-2024 HBV surface Ag IA Ql Negative Negative [facility] Total carbon dioxide measure mentOrdered By: Alexi Olivas on 12-29-2024 CO2 [Moles/Vol] 29 mmol/L [facility] Urinalysis, Completeon 12-29 BACTERIA Normal None Seen [facility] Comment on above: Order Comment: ALICIA ULRICHOR TO SPECIFY Result Comment: AUGUSTUS ENT DISCHARGED Performed By: #### L 400.0001 ####[facility] [address] [place], [address] BILIRUBIN URINE Normal Negative [facility] Comment on above: Order Comment: ALICIA CTOR TO SPECIFY Result Comment: AUGUSTUS ENT DISCHARGED Performed By: #### L 400.0001 ####[facility] [address] [place], [address] Clarity (U) Normal Clear [facility] Comment on above: Order Comment: ALICIA ULRICHOR TO SPECIFY Result Comment: AUGUSTUS ENT DISCHARGED Performed By: #### L 400.0001 ####[facility] [address], [address] Color (U) Normal Yellow [facility] Comment on above: Order Comment: ALICIA CTOR TO SPECIFY Result Comment: AUGUSTUS ENT DISCHARGED Performed By: #### L 400.0001 ####[facility] [address] [place], [address] EPI,SQUAMOUS Normal 0-5 [facility] Comment on above: Order Comment: ALICIA CTOR TO SPECIFY Result Comment: AUGUSTUS ENT DISCHARGED Performed By: #### L 400.0001 ####[facility] [address] [place], [address] GLUCOSE, UR Normal Normal [facility] Comment on above: Order Comment: ALICIA CTOR TO SPECIFY Result Comment: AUGUSTUS ENT DISCHARGED Performed By: #### L 400.0001 ####[facility] [address], [address] KETONE UR Normal Negative [facility] Comment on above: Order Comment: ALICIA CTOR TO SPECIFY Result Comment: AUGUSTUS ENT DISCHARGED Performed By: #### L 400.0001 ####[facility] [address], [address] LEUK ESTERASE Normal Negative [facility] Comment on above: Order Comment: COLLE CTOR TO SPECIFY Result Comment: AUGUSTUS ENT DISCHARGED Performed By: #### L 400.0001 ####[facility] [address], [address] Mucus Ql (Urine sed) Normal [facility] Comment on above: Order Comment: ALICIA CTOR TO SPECIFY Result Comment: AUGUSTUS ENT DISCHARGED Performed By: #### L 400.0001 ####[facility] [address], [address] Nitrite Ql (U) Normal Negative [facility] Comment on above: Order Comment: COLLE CTOR TO SPECIFY Result Comment: AUGUSTUS ENT DISCHARGED Performed By: #### L 400.0001 ####[facility] [address], [address] OCCULT BLOOD-UR Normal Negative [facility] Comment on above: Order Comment: ALICIA CTOR TO SPECIFY Result Comment: AUGUSTUS ENT DISCHARGED Performed By: #### L 400.0001 ####[facility] [address] [place], [address] pH UR Normal 5.0 - 8.0 [facility] Comment on above: Order Comment: ALICIA CTOR TO SPECIFY Result Comment: AUGUSTUS ENT DISCHARGED Performed By: #### L 400.0001 ####[facility] [address] [place], [address] PROT DIPSTX Normal Negative [facility] Comment on above: Order Comment: ALICIA CTOR TO SPECIFY Result Comment: AUGUSTUS ENT DISCHARGED Performed By: #### L 400.0001 ####[facility] [address], [address] RBC Normal 0-5 [facility] Comment on above: Order Comment: ALICIA CTOR TO SPECIFY Result Comment: AUGUSTUS ENT DISCHARGED Performed By: #### L 400.0001 ####[facility] [address] [place], [address] SP.GR. DIPSTX Normal 1.002-1.030 [facility] Comment on above: Order Comment: COLLE CTOR TO SPECIFY Result Comment: AUGUSTUS ENT DISCHARGED Performed By: #### L 400.0001 ####[facility] [address], [address] UR Preservative Normal [facility] Comment on above: Order Comment: ALICIA CTOR TO SPECIFY Result Comment: AUGUSTUS ENT DISCHARGED Performed By: #### L 400.0001 ####[facility] [address], [address] UROBILI Normal Normal [facility] Comment on above: Order Comment: ALICIA CTOR TO SPECIFY Result Comment: AUGUSTUS ENT DISCHARGED Performed By: #### L 400.0001 ####[facility] [address], [address] WBC Normal 0-5 [facility] Comment on above: Order Comment: ALICIA CTOR TO SPECIFY Result Comment: AUGUSTUS ENT DISCHARGED Performed By: #### L 400.0001 ####[facility] [address] [place], [address] BACTERIA 0 SEEN Normal None Seen [facility] Comment on above: Order Comment: DERRICK TER SPECIMEN Result Comment: @REC EIVED ON ACCIDENT. REORDERED Performed By: #### L 400.0001 ####[facility] [address] [place], [address] EPI,SQUAMOUS 0 SEEN Normal 0-5 [facility] Comment on above: Order Comment: DERRICK TER SPECIMEN Result Comment: @REC EIVED ON ACCIDENT. REORDERED Performed By: #### L 400.0001 ####[facility] [address], [address] Mucus Ql (Urine sed) 0 SEEN Normal [facility] Comment on above: Order Comment: DERRICK TER SPECIMEN Result Comment: @REC EIVED ON ACCIDENT. REORDERED Performed By: #### L 400.0001 ####[facility] [address] [place], [address] RBC 0 SEEN Normal 0-5 [facility] Comment on above: Order Comment: DERRICK TER SPECIMEN Result Comment: @REC EIVED ON ACCIDENT. REORDERED Performed By: #### L 400.0001 ####[facility] [address] [place], [address] WBC 0 SEEN Normal 0-5 [facility] Comment on above: Order Comment: DERRICK TER SPECIMEN Result Comment: @REC EIVED ON ACCIDENT. REORDERED Performed By: #### L 400.0001 ####[facility] [address] [place], [address] BILIRUBIN URINE Normal Negative [facility] Comment on above: Order Comment: DERRICK TER SPECIMEN Result Comment: @REC EIVED ON ACCIDENT. REORDERED Performed By: #### L 400.0001 ####[facility] [address], [address] Clarity (U) Normal Clear [facility] Comment on above: Order Comment: DERRICK TER SPECIMEN Result Comment: @REC EIVED ON ACCIDENT. REORDERED Performed By: #### L 400.0001 ####[facility] [address] [place], [address] Color (U) Normal Yellow [facility] Comment on above: Order Comment: DERRICK TER SPECIMEN Result Comment: @REC EIVED ON ACCIDENT. REORDERED Performed By: #### L 400.0001 ####[facility] [address] [place], [address] GLUCOSE, UR Normal Normal [facility] Comment on above: Order Comment: DERRICK TER SPECIMEN Result Comment: @REC EIVED ON ACCIDENT. REORDERED Performed By: #### L 400.0001 ####[facility] [address] [place], [address] KETONE UR Normal Negative [facility] Comment on above: Order Comment: DERRICK TER SPECIMEN Result Comment: @REC EIVED ON ACCIDENT. REORDERED Performed By: #### L 400.0001 ####[facility] [address] [place], [address] LEUK ESTERASE Normal Negative [facility] Comment on above: Order Comment: DERRICK TER SPECIMEN Result Comment: @REC EIVED ON ACCIDENT. REORDERED Performed By: #### L 400.0001 ####[facility] [address] [place], [address] Nitrite Ql (U) Normal Negative [facility] Comment on above: Order Comment: DERRICK TER SPECIMEN Result Comment: @REC EIVED ON ACCIDENT. REORDERED Performed By: #### L 400.0001 ####[facility] [address] [place], [address] OCCULT BLOOD-UR Normal Negative [facility] Comment on above: Order Comment: DERRICK TER SPECIMEN Result Comment: @REC EIVED ON ACCIDENT. REORDERED Performed By: #### L 400.0001 ####[facility] [address] [place], [address] pH UR Normal 5.0 - 8.0 [facility] Comment on above: Order Comment: DERRICK TER SPECIMEN Result Comment: @REC EIVED ON ACCIDENT. REORDERED Performed By: #### L 400.0001 ####[facility] [address] [place], [address] PROT DIPSTX Normal Negative [facility] Comment on above: Order Comment: DERRICK TER SPECIMEN Result Comment: @REC EIVED ON ACCIDENT. REORDERED Performed By: #### L 400.0001 ####[facility] [address] [place], [address] SP.GR. DIPSTX Normal 1.002-1.030 [facility] Comment on above: Order Comment: DERRICK TER SPECIMEN Result Comment: @REC EIVED ON ACCIDENT. REORDERED Performed By: #### L 400.0001 ####[facility] [address] [place], [address] UR Preservative Normal [facility] Comment on above: Order Comment: DERRICK TER SPECIMEN Result Comment: @REC EIVED ON ACCIDENT. REORDERED Performed By: #### L 400.0001 ####[facility] [address] [place], [address] UROBILI Normal Normal [facility] Comment on above: Order Comment: DERRICK TER SPECIMEN Result Comment: @REC EIVED ON ACCIDENT. REORDERED Performed By: #### L 400.0001 ####[facility] [address] [place], [address] Bilirubin, totalOrdered By: Flakita Florentino on 12-28-2024 Bilirubin [Mass/Vol] 0.59 mg/dL 0.00-1.30 [facility] CBC W/Diff, Automatedon Absolute Lymph 0.45 X10 3/uL Low 0.83-4.51 [facility] Comment on above: Performed By: #### L 501.5200, L100.0100, L500.4050, L501.2300 ####[facility] [address] [place], [address] Absolute Neut 8.4 X10 3/uL High 2.0-7.7 [facility] Comment on above: Performed By: #### L 501.5200, L100.0100, L500.4050, L501.2300 ####[facility] [address] [place], [address] Basophils/100 WBC (Bld) 0.1 % Normal 0-1 [facility] Comment on above: Performed By: #### L 501.5200, L100.0100, L500.4050, L501.2300 ####[facility] [address] [place], [address] Eosinophils/100 WBC (Bld) 0.0 % Normal 0-5 [facility] Comment on above: Performed By: #### L 501.5200, L100.0100, L500.4050, L501.2300 ####[facility] [address] [place], [address] Erythrocyte distribution width (RBC) [Ratio] 13.3 % Normal 11.6-14.6 [facility] Comment on above: Performed By: #### L 501.5200, L100.0100, L500.4050, L501.2300 ####[facility] [address] [place], [address] Hematocrit (Bld) [Volume fraction] 41.5 % Normal 40-54 [facility] Comment on above: Performed By: #### L 501.5200, L100.0100, L500.4050, L501.2300 ####[facility] [address] [place], [address] Hemoglobin (Bld) [Mass/Vol] 14.4 g/dL Normal 13.0-16.5 [facility] Comment on above: Performed By: #### L 501.5200, L100.0100, L500.4050, L501.2300 ####[facility] [address] [place], [address] IG% 0.600 Normal 0.0-0.9 [facility] Comment on above: Result Comment: IG% - Immature Granulocytes (promyelocytes, myelocytes andmetamyelocytes) > 1% indicates that a LEFT SHIFT is Present. Performed By: #### L 501.5200, L100.0100, L500.4050, L501.2300 ####[facility] [address] [place], [address] Lymphocytes/100 WBC (Bld) 5.0 % Low 19-41 [facility] Comment on above: Performed By: #### L 501.5200, L100.0100, L500.4050, L501.2300 ####[facility] [address] [place], [address] MCH (RBC) [Entitic mass] 36.0 pg High 27.0-32.0 [facility] Comment on above: Performed By: #### L 501.5200, L100.0100, L500.4050, L501.2300 ####[facility] [address] [place], [address] MCHC (RBC) [Mass/Vol] 34.7 g/dL Normal 32-36 [facility] Comment on above: Performed By: #### L 501.5200, L100.0100, L500.4050, L501.2300 ####[facility] [address] [place], [address] MCV (RBC) [Entitic vol] 103.8 fL High 80-94 [facility] Comment on above: Performed By: #### L 501.5200, L100.0100, L500.4050, L501.2300 ####[facility] [address] [place], [address] Monocytes/100 WBC (Bld) 1.4 % Normal 0-10 [facility] Comment on above: Performed By: #### L 501.5200, L100.0100, L500.4050, L501.2300 ####[facility] [address] [place], [address] Neutrophils/100 WBC (Bld) 92.9 % High 47-70 [facility] Comment on above: Performed By: #### L 501.5200, L100.0100, L500.4050, L501.2300 ####[facility] [address] [place], [address] Nucleated RBC (Bld) [#/Vol] 0 10*3/uL Normal 0-5 [facility] Comment on above: Performed By: #### L 501.5200, L100.0100, L500.4050, L501.2300 ####[facility] [address] [place], [address] Platelet mean volume (Bld) [Entitic vol] 9.8 fL Normal 6.2-12.0 [facility] Comment on above: Performed By: #### L 501.5200, L100.0100, L500.4050, L501.2300 ####[facility] [address] [place], [address] Platelets (Bld) [#/Vol] 180 10*3/uL Normal 150-450 [facility] Comment on above: Performed By: #### L 501.5200, L100.0100, L500.4050, L501.2300 ####[facility] [address], [address] RBC (Bld) [#/Vol] 4.00 10*6/uL Low 4.6-6.2 [facility] Comment on above: Performed By: #### L 501.5200, L100.0100, L500.4050, L501.2300 ####[facility] [address] [place], [address] RDW SD 51.4 fl High 35.1-43.9 [facility] Comment on above: Performed By: #### L 501.5200, L100.0100, L500.4050, L501.2300 ####[facility] [address] [place], [address] WBC (Bld) [#/Vol] 9.0 10*3/uL Normal 4.4-11.0 [facility] Comment on above: Performed By: #### L 501.5200, L100.0100, L500.4050, L501.2300 ####[facility] [address], [address] Comprehensive Metabolic Prof [facility] 12-28-2024 Albumin [Mass/Vol] 3.7 g/dL Normal 3.4-4.8 [facility] Comment on above: Performed By: #### L 501.5200, L100.0100, L500.4050, L501.2300 ####[facility] [address] [place], [address] Albumin/Globulin [Mass ratio] 1.0 {ratio} Normal 0.9-2.4 [facility] Comment on above: Performed By: #### L 501.5200, L100.0100, L500.4050, L501.2300 ####[facility] [address] [place], [address] ALK PHOS 149 U/L High 40-129 [facility] Comment on above: Performed By: #### L 501.5200, L100.0100, L500.4050, L501.2300 ####[facility] [address] [place], [address] ALT [Catalytic activity/Vol] 31 U/L Normal <=46 [facility] Comment on above: Performed By: #### L 501.5200, L100.0100, L500.4050, L501.2300 ####[facility] [address] [place], [address] AST [Catalytic activity/Vol] 42 U/L High <=37 [facility] Comment on above: Result Comment: Hemo lysis present, Results??could be affected.?? Performed By: #### L 501.5200, L100.0100, L500.4050, L501.2300 ####[facility] [address] [place], [address] Bilirubin [Mass/Vol] 0.59 mg/dL Normal 0.00-1.30 [facility] Comment on above: Performed By: #### L 501.5200, L100.0100, L500.4050, L501.2300 ####[facility] [address] [place], [address] BUN/CRE 15.6 RATIO Normal 10-20 [facility] Comment on above: Performed By: #### L 501.5200, L100.0100, L500.4050, L501.2300 ####[facility] [address] [place], [address] Calcium [Mass/Vol] 9.0 mg/dL Normal 7.6-11.0 [facility] Comment on above: Performed By: #### L 501.5200, L100.0100, L500.4050, L501.2300 ####[facility] [address] [place], [address] Chloride [Moles/Vol] 105 mmol/L Normal 98-108 [facility] Comment on above: Performed By: #### L 501.5200, L100.0100, L500.4050, L501.2300 ####[facility] [address] [place], [address] CO2 [Moles/Vol] 19.7 mmol/L Low 21.0-32.0 [facility] Comment on above: Performed By: #### L 501.5200, L100.0100, L500.4050, L501.2300 ####[facility] [address] [place], [address] Creatinine [Mass/Vol] 0.69 mg/dL Low 0.70-1.20 [facility] Comment on above: Performed By: #### L 501.5200, L100.0100, L500.4050, L501.2300 ####[facility] [address] [place], [address] ECRCL 94.14 ml/min Normal 50-250 [facility] Comment on above: Performed By: #### L 501.5200, L100.0100, L500.4050, L501.2300 ####[facility] [address] [place], [address] GAP 13 Normal 5-15 [facility] Comment on above: Performed By: #### L 501.5200, L100.0100, L500.4050, L501.2300 ####[facility] [address] [place], [address] GFR/1.73 sq M.predicted among non-blacks MDRD (S/P/Bld) [Vol rate/Area] 97 mL/min/{1.73_m2} Normal >60 [facility] Comment on above: Result Comment: mL/m in/1.73m2 CKD-EPI Creatinine Equation (2020) Performed By: #### L 501.5200, L100.0100, L500.4050, L501.2300 ####[facility] [address] [place], [address] Globulin (S) [Mass/Vol] 3.6 g/dL Normal 2.2-4.2 [facility] Comment on above: Performed By: #### L 501.5200, L100.0100, L500.4050, L501.2300 ####[facility] [address] [place], [address] Glucose [Mass/Vol] 178 mg/dL High 70-99 [facility] Comment on above: Performed By: #### L 501.5200, L100.0100, L500.4050, L501.2300 ####[facility] [address] [place], [address] Potassium [Moles/Vol] 4.3 mmol/L Normal 3.3-5.1 [facility] Comment on above: Result Comment: Hemo lysis present, Results??could be affected.?? Performed By: #### L 501.5200, L100.0100, L500.4050, L501.2300 ####[facility] [address] [place], [address] Sodium [Moles/Vol] 137 mmol/L Normal 133-145 [facility] Comment on above: Performed By: #### L 501.5200, L100.0100, L500.4050, L501.2300 ####[facility] [address] [place], [address] T PROT 7.2 g/dL Normal 5.9-8.4 [facility] Comment on above: Performed By: #### L 501.5200, L100.0100, L500.4050, L501.2300 ####[facility] [address] [place], [address] Urea nitrogen [Mass/Vol] 11 mg/dL Normal 4-19 [facility] Comment on above: Performed By: #### L 501.5200, L100.0100, L500.4050, L501.2300 ####[facility] [address] [place], [address] Consultation - Intensiviston 12-28-2024 Consultation - Tool Straightener Normal [facility] Gram stainOrdered By: Mohit Myers on 12-28-2024 Microscopic observation Gram stain Nom (Unsp spec) [facility] IgEOrdered By: Mohit Myers on 12-28-2024 IgE 214 IU/mL 6-495 [facility] Comment on above: Performed at: [address] [id number] Director: Zafar Browne MD, Phone: [phone] [id number] 12-28-2024 Natriuretic peptide B (Bld) [Mass/Vol] 2229 pg/mL High <=900 [facility] Comment on above: Result Comment: Hear t Failure Unlikely: < 300 pg/mLHeart Failure Likely< 50 Years: > 450 pg/mL50-75 Years: > 900 pg/mL>75 Years: > 1800 pg/mL Performed By: #### L 3200.1600, L3400.5105, L503.7505, L509.7001 ####[facility] [address] [place], [place], [id number] L509.7001on 12-28-2024 Procalcitonin 0.18 ng/mL High <=0.10 [facility] Comment on above: Result Comment: Inte [...] By: #### L 3200.1600, L3400.5105, L503.7505, L509.7001 ####[facility] [address] [place], [place], [id number] Laboratory - Chemistry and C hemistry - challengeOrdered By: Flakita Florentino on 12-28-2024 AST [Catalytic activity/Vol] 42 U/L High <38 [facility] Comment on above: Hemolysis present, R esults could be affected. Magnesiumon 12-28-2024 Magnesium [Mass/Vol] 2.1 mg/dL Normal 1.5-2.2 [facility] Comment on above: Performed By: #### L 501.5200, L100.0100, L500.4050, L501.2300 ####[facility] [address] [place], [place], [id number] Magnesium measurement (mass/ volume)Ordered By: Flakita Florentino on 12-28-2024 Magnesium (Unsp spec) [Mass/Vol] 2.1 mg/dL 1.5-2.2 [facility] Microbial respiratory cultur eOrdered By: Mohit Myers on 12-28-2024 Microorganism identified Cx Nom (Unsp spec) Staphylococcus aureus Abnormal [facility] Microorganism identified Cx Nom (Unsp spec) Streptococcus agalactiae (B) Abnormal [facility] Microorganism identified Cx Nom (Unsp spec) Streptococcus group F Abnormal [facility] Natriuretic peptide.B prohor archie N-Terminal [Mass/volume] in Serum or PlasmaOrdered By: Mohit Myers on 12-28-2024 Natriuretic peptide.B prohormone N-Terminal [Mass/Vol] 2229 pg/mL High <900 [facility] Comment on above: Heart Failure Unlike ly: < 300 pg/mLHeart Failure Likely< 50 Years: > 450 pg/mL50-75 Years: > 900 pg/mL>75 Years: > 1800 pg/mL Phosphoruson 12-28-2024 Phosphate [Mass/Vol] 3.3 mg/dL Normal 2.7-4.5 [facility] Comment on above: Performed By: #### L 501.5200, L100.0100, L500.4050, L501.2300 ####[facility] [address] [place], [place], [id number] Procalcitonin [Mass/volume] in Serum or Plasma by ImmunoassayOrdered By: Mohit Myers on 12-28-2024 Procalcitonin IA [Mass/Vol] 0.18 ng/mL High <0.11 [facility] [facility] Comment on above: Interpretation:<0.10 -0.25 ng/mL: [...] beta-hemolytic Streptococcus or Staphylococcus aureus isolated. Normal [facility] Comment on above: Performed By: #### M 100.2000, M100.2400 ####[facility] [address] [place], [address] Serum globulin measurementOr dered By: Flakita Florentino on 12-28-2024 Globulin (S) [Mass/Vol] 3.6 g/dL 2.2-4.2 [facility] Serum or plasma alanine guevara otransferase (ALT) measurementOrdered By: Flakita Florentino on 12-28-2024 ALT [Catalytic activity/Vol] 31 U/L <47 [facility] Serum or plasma albumin reid urement (mass/volume)Ordered By: Flakita Florentino on 12-28-2024 Albumin [Mass/Vol] 3.7 g/dL 3.4-4.8 [facility] Serum or plasma albumin/glob ulin mass ratioOrdered By: Flakita Florentino on 12-28-2024 Albumin/Globulin [Mass ratio] 1.0 {ratio} 0.9-2.4 [facility] Serum or plasma alkaline adelfo sphatase measurementOrdered By: Flakita Florentino on 12-28-2024 ALP [Catalytic activity/Vol] 149 U/L High 40-129 [facility] Total proteinOrdered By: Dee Florentino on 12-28-2024 Protein [Mass/Vol] 7.2 g/dL 5.9-8.4 [facility] 12 Lead EKGon 12-27-2024 12 Lead EKG Normal [facility] Absolute lymphocyte countOrd ered By: Marino Holguin on 12-27-2024 Lymphocytes Auto (Unsp spec) [#/Vol] 0.73 10*3/uL Low 0.83-4.51 [facility] Absolute neutrophil countOrd ered By: Marino Holguin on 12-27-2024 Neutrophils (Bld) [#/Vol] 5.0 10*3/uL 2.0-7.7 [facility] Anion gap in Serum or Plasma Ordered By: Marino Holguin on 12-27-2024 Anion gap [Moles/Vol] 11 mmol/L 5-15 [facility] Assessment of wrist artery p atency prior to arterial punctureOrdered By: Marino Holguin on 12-27-2024 Arterial patency Wrist artery --pre arterial puncture Positive [facility] Automated lymphocyte count a s percentage of total leukocytesOrdered By: Marinophilippe Holguin on 12-27-2024 Lymphocytes/100 WBC Auto (Unsp spec) 9.8 % Low 19-41 [facility] BUN/creatinine ratioOrdered By: Marinophilippe Holguin on 12-27-2024 Urea nitrogen/Creatinine [Mass ratio] 14.1 mg/mg 10-20 [facility] Basophil percentageOrdered B y: Marino Holguin on 12-27-2024 Basophils/100 WBC (Bld) 0.8 % 0-1 [facility] Bilirubin, totalOrdered By: Marinophilippe Holguin on 12-27-2024 Bilirubin [Mass/Vol] 0.80 mg/dL 0.00-1.30 [facility] Blood Gases by CPSon 025 TATY TEST Positive Normal [facility] Comment on above: Performed By: #### L 9000.0800 ####[facility] [address], [address] Base excess Calc (Bld) [Moles/Vol] 1 mmol/L Normal -2 to +2 [facility] Comment on above: Performed By: #### L 9000.0800 ####[facility] [address] [place], [address] Blood Gas Type ART Normal [facility] Comment on above: Performed By: #### L 9000.0800 ####[facility] [address] [place], [address] CO2 [Moles/Vol] 26 mmol/L Normal [facility] Comment on above: Performed By: #### L 0.0800 ####[facility] [address] [place], [address] FI02 30.0 Normal [facility] Comment on above: Performed By: #### L 0.0800 ####[facility] [address] [place], [address] HCO3 (Bld) [Moles/Vol] 24.9 mmol/L Normal 22-26 [facility] Comment on above: Performed By: #### L 9000.0800 ####[facility] [address] [place], [address] Mode AC Normal [facility] Comment on above: Performed By: #### L 0.0800 ####[facility] [address] [place], [address] O2 Delivery Dev Adult Vent Normal [facility] Comment on above: Performed By: #### L 0.0800 ####[facility] [address] [place], [address] pCO2 37.4 mmHg Normal 35-45 [facility] Comment on above: Performed By: #### L 0.0800 ####[facility] [address] [place], [address] PEEP 5 Normal [facility] Comment on above: Performed By: #### L 0.0800 ####[facility] [address] [place], [address] pH (Bld) 7.43 [pH] Normal 7.35-7.45 [facility] Comment on above: Performed By: #### L 9000.0800 ####[facility] [address] [place], [address] PO2 91 mmHG Normal 75-100 [facility] Comment on above: Performed By: #### L 0.0800 ####[facility] [address] [place], [address] RR 14 Normal [facility] Comment on above: Performed By: #### L 0.0800 ####[facility] [address] [place], [address] SITE L Radial Normal [facility] Comment on above: Performed By: #### L 0.0800 ####[facility] [address] [place], [address] SO2 97 Normal 95-99 [facility] Comment on above: Performed By: #### L 0.0800 ####[facility] [address] [place], [address] Vt 500.0 mL Normal [facility] Comment on above: Performed By: #### L 0.0800 ####[facility] [address] [place], [address] Blood base excess determinat ionOrdered By: Marino Holguin on 12-27-2024 Base excess Calc (BldV) [Moles/Vol] 1 mmol/L -2-2 [facility] Blood bicarbonate measuremen tOrdered By: Marino Holguin on 12-27-2024 HCO3 (Bld) [Moles/Vol] 24.9 mmol/L 22-26 [facility] CBC W/Diff, Automatedon 06 Absolute Lymph 0.73 X10 3/uL Low 0.83-4.51 [facility] Comment on above: Performed By: #### L 3400.4350, L500.4050, L100.0100 ####[facility] [address] [place], [address] Absolute Neut 5.0 X10 3/uL Normal 2.0-7.7 [facility] Comment on above: Performed By: #### L 3400.4350, L500.4050, L100.0100 ####[facility] [address], [address] Basophils/100 WBC (Bld) 0.8 % Normal 0-1 [facility] Comment on above: Performed By: #### L 3400.4350, L500.4050, L100.0100 ####[facility] [address] [place], [address] Eosinophils/100 WBC (Bld) 10.8 % High 0-5 [facility] Comment on above: Performed By: #### L 3400.4350, L500.4050, L100.0100 ####[facility] [address] [place], [address] Erythrocyte distribution width (RBC) [Ratio] 13.3 % Normal 11.6-14.6 [facility] Comment on above: Performed By: #### L 3400.4350, L500.4050, L100.0100 ####[facility] [address] [place], [address] Hematocrit (Bld) [Volume fraction] 40.9 % Normal 40-54 [facility] Comment on above: Performed By: #### L 3400.4350, L500.4050, L100.0100 ####[facility] [address] [place], [address] Hemoglobin (Bld) [Mass/Vol] 14.1 g/dL Normal 13.0-16.5 [facility] Comment on above: Performed By: #### L 3400.4350, L500.4050, L100.0100 ####[facility] [address] [place], [address] IG% 0.300 Normal 0.0-0.9 [facility] Comment on above: Result Comment: IG% - Immature Granulocytes (promyelocytes, myelocytes andmetamyelocytes) > 1% indicates that a LEFT SHIFT is Present. Performed By: #### L 3400.4350, L500.4050, L100.0100 ####[facility] [address] [place], [address] Lymphocytes/100 WBC (Bld) 9.8 % Low 19-41 [facility] Comment on above: Performed By: #### L 3400.4350, L500.4050, L100.0100 ####[facility] [address] [place], [address] MCH (RBC) [Entitic mass] 35.7 pg High 27.0-32.0 [facility] Comment on above: Performed By: #### L 3400.4350, L500.4050, L100.0100 ####[facility] [address] [place], [address] MCHC (RBC) [Mass/Vol] 34.5 g/dL Normal 32-36 [facility] Comment on above: Performed By: #### L 3400.4350, L500.4050, L100.0100 ####[facility] [address] [place], [address] MCV (RBC) [Entitic vol] 103.5 fL High 80-94 [facility] Comment on above: Performed By: #### L 3400.4350, L500.4050, L100.0100 ####[facility] [address] [place], [address] Monocytes/100 WBC (Bld) 11.2 % High 0-10 [facility] Comment on above: Performed By: #### L 3400.4350, L500.4050, L100.0100 ####[facility] [address], [address] Neutrophils/100 WBC (Bld) 67.1 % Normal 47-70 [facility] Comment on above: Performed By: #### L 3400.4350, L500.4050, L100.0100 ####[facility] [address] [place], [address] Nucleated RBC (Bld) [#/Vol] 0 10*3/uL Normal 0-5 [facility] Comment on above: Performed By: #### L 3400.4350, L500.4050, L100.0100 ####[facility] [address] [place], [address] Platelet mean volume (Bld) [Entitic vol] 9.7 fL Normal 6.2-12.0 [facility] Comment on above: Performed By: #### L 3400.4350, L500.4050, L100.0100 ####[facility] [address] [place], [address] Platelets (Bld) [#/Vol] 200 10*3/uL Normal 150-450 [facility] Comment on above: Performed By: #### L 3400.4350, L500.4050, L100.0100 ####[facility] [address] [place], [address] RBC (Bld) [#/Vol] 3.95 10*6/uL Low 4.6-6.2 [facility] Comment on above: Performed By: #### L 3400.4350, L500.4050, L100.0100 ####[facility] [address] [place], [address] RDW SD 51.5 fl High 35.1-43.9 [facility] Comment on above: Performed By: #### L 3400.4350, L500.4050, L100.0100 ####[facility] [address] [place], [address] WBC (Bld) [#/Vol] 7.5 10*3/uL Normal 4.4-11.0 [facility] Comment on above: Performed By: #### L 3400.4350, L500.4050, L100.0100 ####[facility] [address] [place], [address] CPK Total, Creatine Kinaseon 12-27-2024 CPK TOTAL 120 U/L Normal 24-195 [facility] Comment on above: Order Comment: Comme nts: DC when propofol is d/c'd Performed By: #### L 501.5000, L501.3620 ####[facility] [address] [place], [address] Carbon dioxide, total [Moles /volume] in Central venous bloodOrdered By: Marino Holguin on 12-27-2024 CO2 [Moles/Vol] 23.1 mmol/L 21.0-32.0 [facility] Chest 1 View (Portable)on Chest 1 View (Portable) Normal [facility] Chloride assayOrdered By: Jake Holguin on 12-27-2024 Chloride [Moles/Vol] 105 mmol/L 98-108 [facility] Comprehensive Metabolic Prof ilon 12-27-2024 Albumin [Mass/Vol] 4.0 g/dL Normal 3.4-4.8 [facility] Comment on above: Performed By: #### L 3400.4350, L500.4050, L100.0100 ####[facility] [address] [place], [address] Albumin/Globulin [Mass ratio] 1.1 {ratio} Normal 0.9-2.4 [facility] Comment on above: Performed By: #### L 3400.4350, L500.4050, L100.0100 ####[facility] [address] [place], [address] ALK PHOS 151 U/L High 40-129 [facility] Comment on above: Performed By: #### L 3400.4350, L500.4050, L100.0100 ####[facility] [address] [place], [address] ALT [Catalytic activity/Vol] 34 U/L Normal <=46 [facility] Comment on above: Performed By: #### L 3400.4350, L500.4050, L100.0100 ####[facility] [address] [place], [address] AST [Catalytic activity/Vol] 50 U/L High <=37 [facility] Comment on above: Performed By: #### L 3400.4350, L500.4050, L100.0100 ####[facility] [address] [place], [address] Bilirubin [Mass/Vol] 0.80 mg/dL Normal 0.00-1.30 [facility] Comment on above: Performed By: #### L 3400.4350, L500.4050, L100.0100 ####[facility] [address] [place], [address] BUN/CRE 14.1 RATIO Normal 10-20 [facility] Comment on above: Performed By: #### L 3400.4350, L500.4050, L100.0100 ####[facility] [address] [place], [address] Calcium [Mass/Vol] 9.4 mg/dL Normal 7.6-11.0 [facility] Comment on above: Performed By: #### L 3400.4350, L500.4050, L100.0100 ####[facility] [address] [place], [address] Chloride [Moles/Vol] 105 mmol/L Normal 98-108 [facility] Comment on above: Performed By: #### L 3400.4350, L500.4050, L100.0100 ####[facility] [address] [place], [address] CO2 [Moles/Vol] 23.1 mmol/L Normal 21.0-32.0 [facility] Comment on above: Performed By: #### L 3400.4350, L500.4050, L100.0100 ####[facility] [address] [place], [address] Creatinine [Mass/Vol] 0.72 mg/dL Normal 0.70-1.20 [facility] Comment on above: Performed By: #### L 3400.4350, L500.4050, L100.0100 ####[facility] [address] [place], [address] ECRCL 93.74 ml/min Normal 50-250 [facility] Comment on above: Performed By: #### L 3400.4350, L500.4050, L100.0100 ####[facility] [address] [place], [address] GAP 11 Normal 5-15 [facility] Comment on above: Performed By: #### L 3400.4350, L500.4050, L100.0100 ####[facility] [address] [place], [address] GFR/1.73 sq M.predicted among non-blacks MDRD (S/P/Bld) [Vol rate/Area] 96 mL/min/{1.73_m2} Normal >60 [facility] Comment on above: Result Comment: mL/m in/1.73m2 CKD-EPI Creatinine Equation (2020) Performed By: #### L 3400.4350, L500.4050, L100.0100 ####[facility] [address], [address] Globulin (S) [Mass/Vol] 3.5 g/dL Normal 2.2-4.2 [facility] Comment on above: Performed By: #### L 3400.4350, L500.4050, L100.0100 ####[facility] [address] [place], [address] Glucose [Mass/Vol] 95 mg/dL Normal 70-99 [facility] Comment on above: Performed By: #### L 3400.4350, L500.4050, L100.0100 ####[facility] [address] [place], [address] Potassium [Moles/Vol] 4.7 mmol/L Normal 3.3-5.1 [facility] Comment on above: Performed By: #### L 3400.4350, L500.4050, L100.0100 ####[facility] [address] [place], [address] Sodium [Moles/Vol] 139 mmol/L Normal 133-145 [facility] Comment on above: Performed By: #### L 3400.4350, L500.4050, L100.0100 ####[facility] [address] [place], [address] T PROT 7.4 g/dL Normal 5.9-8.4 [facility] Comment on above: Performed By: #### L 3400.4350, L500.4050, L100.0100 ####[facility] [address] [place], [address] Urea nitrogen [Mass/Vol] 10 mg/dL Normal 4-19 [facility] Comment on above: Performed By: #### L 3400.4350, L500.4050, L100.0100 ####[facility] [address] [place], [address] Emergency Department Summary on 12-27-2024 Emergency Department Summary Normal [facility] Eosinophil percentageOrdered By: Marino Holguin on 12-27-2024 Eosinophils/100 WBC (Bld) 10.8 % High 0-5 [facility] Erythrocyte distribution wid th ratioOrdered By: Marino Holguin on 12-27-2024 Erythrocyte distribution width (RBC) [Ratio] 13.3 % 11.6-14.6 [facility] Erythrocyte distribution wid th standard deviationOrdered By: Marino Holguin on 12-27-2024 Erythrocyte distribution width (RBC) [Ratio] 51.5 fl High 35.1-43.9 [facility] Glomerular filtration rate ( GFR) estimation/1.73 sq m using serum, plasma, or whole bOrdered By: Marino Holguin on 12-27-2024 GFR/1.73 sq M.predicted among non-blacks MDRD (S/P/Bld) [Vol rate/Area] 96 mL/min/{1.73_m2} >60 [facility] Comment on above: mL/min/1.73m2 CKD-EP I Creatinine Equation (2020) Gram stainOrdered By: Marino choudhary on 12-27-2024 Microscopic observation Gram stain Nom (Unsp spec) [facility] H AND P Exam - Hospitaliston 12-27-2024 H&P Exam - Hospitalist Normal [facility] Hematocrit Auto (Bld) [Volum e fraction]Ordered By: Marino Holguin on 12-27-2024 Hematocrit (Bld) [Volume fraction] 40.9 % 40-54 [facility] Hemoglobin measurementOrdere d By: Marino Holguin on 12-27-2024 Hemoglobin (Bld) [Mass/Vol] 14.1 g/dL 13.0-16.5 [facility] Immature granulocytes/100 WB C Auto (Bld)Ordered By: Marino Holguin on 12-27-2024 Immature granulocytes/100 WBC (Bld) 0.300 % 0.0-0.9 [facility] Comment on above: IG% - Immature Granu locytes (promyelocytes, myelocytes and metamyelocytes) > 1% indicates that a LEFT SHIFT is Present. Laboratory - Chemistry and C hemistry - challengeOrdered By: Marino Holguin on 12-27-2024 AST [Catalytic activity/Vol] 50 U/L High <38 [facility] MCV (mean corpuscular volume ) determinationOrdered By: Marino Holguin on 12-27-2024 MCV (RBC) [Entitic vol] 103.5 fL High 80-94 [facility] Mean corpuscular hemoglobin (MCH) determinationOrdered By: Marino Holguin on 12-27-2024 MCH (RBC) [Entitic mass] 35.7 pg High 27.0-32.0 [facility] Mean corpuscular hemoglobin concentration (MCHC) determinationOrdered By: Marino Holguin on 12-27-2024 MCHC (RBC) [Mass/Vol] 34.5 g/dL 32-36 [facility] Mean platelet volume determi nationOrdered By: Marino Holguin on 12-27-2024 Platelet mean volume (Bld) [Entitic vol] 9.7 fL 6.2-12.0 [facility] Measurement, pHOrdered By: Michael Holguin on 12-27-2024 pH (Unsp spec) 7.43 [pH] 7.35-7.45 [facility] Microbial respiratory cultur eOrdered By: Marino Holguin on 12-27-2024 Microorganism identified Cx Nom (Unsp spec) or Staphylococcus aureus isolated. [facility] Monocyte percentageOrdered B y: Marino Holguin on 12-27-2024 Monocytes/100 WBC (Bld) 11.2 % High 0-10 [facility] Neutrophil percentageOrdered By: Marino Holguin on 12-27-2024 Neutrophils/100 WBC (Bld) 67.1 % 47-70 [facility] No Panel InformationOrdered By: Marino Holguin on 12-27-2024 Bedside Blood Gas PEEP 5 [facility] Blood Gas Respiration Rate 14 [facility] Blood Gas Sample Site L Radial [facility] Blood Gas Specimen Type ART [facility] Blood Gas Tidal Volume 500.0 mL [facility] Blood Gas Vent Mode AC [facility] Oxygen Delivery Device Adult Vent [facility] Nucleated red blood cell per centageOrdered By: Marino Holguin on 12-27-2024 Nucleated RBC/100 WBC (Bld) [Ratio] 0 % 0-5 [facility] Platelet countOrdered By: Jake Holguin on 12-27-2024 Platelets (Bld) [#/Vol] 200 10*3/uL 150-450 [facility] Potassium measurement (mass/ volume)Ordered By: Marino Holguin on 12-27-2024 Potassium (Unsp spec) [Mass/Vol] 4.7 mmol/L 3.3-5.1 [facility] RBC Auto (Bld) [#/Vol]Ordere d By: Marino Holguin on 12-27-2024 RBC (Bld) [#/Vol] 3.95 10*6/uL Low 4.6-6.2 [facility] Serum creatinine measurement (mass/volume)Ordered By: Marino Holguin on 12-27-2024 Creatinine [Mass/Vol] 0.72 mg/dL 0.70-1.20 [facility] Serum globulin measurementOr dered By: Marino Holguin 12-27-2024 Globulin (S) [Mass/Vol] 3.5 g/dL 2.2-4.2 [facility] Serum glucose measurement (m ass/volume)Ordered By: Marino Holguin 12-27-2024 Glucose [Mass/Vol] 95 mg/dL 70-99 [facility] Serum or plasma alanine guevara otransferase (ALT) measurementOrdered By: Marino Holguin on 12-27-2024 ALT [Catalytic activity/Vol] 34 U/L <47 [facility] Serum or plasma albumin reid urement (mass/volume)Ordered By: Marino Holguin 12-27-2024 Albumin [Mass/Vol] 4.0 g/dL 3.4-4.8 [facility] Serum or plasma albumin/glob ulin mass ratioOrdered By: Marino Holguin 12-27-2024 Albumin/Globulin [Mass ratio] 1.1 {ratio} 0.9-2.4 [facility] Serum or plasma alkaline adelfo sphatase measurementOrdered By: Marino Holguin on 12-27-2024 ALP [Catalytic activity/Vol] 151 U/L High 40-129 [facility] Serum or plasma calcium reid urement (mass/volume)Ordered By: Marino Holguin 12-27-2024 Calcium [Mass/Vol] 9.4 mg/dL 7.6-11.0 [facility] Serum or plasma creatine kin ase activityOrdered By: Marino Holguin 12-27-2024 CK [Catalytic activity/Vol] 120 U/L 24-195 [facility] Serum or plasma functional c omplement C1 esterase inhibitor detectionOrdered By: Marino Holguin on 12-27-2024 Complement C1 esterase inhibitor.functional Ql 102 . [facility] Comment on above: Result Units: %mean normal Abnormal <41 Equivocal 41 - 67 Normal >67Performed at: [facility] [id number] Director: Zafar Browne MD, Phone: [phone] Serum or plasma urea nitroge n measurement (mass/volume)Ordered By: Marino Holguin on 12-27-2024 Urea nitrogen [Mass/Vol] 10 mg/dL 4-19 [facility] Sodium levelOrdered By: Marino Holguin on 12-27-2024 Sodium [Moles/Vol] 139 mmol/L 133-145 [facility] Total carbon dioxide measure mentOrdered By: Marino Holguin on 12-27-2024 CO2 [Moles/Vol] 26 mmol/L [facility] Total proteinOrdered By: Marino Holguin on 12-27-2024 Protein [Mass/Vol] 7.4 g/dL 5.9-8.4 [facility] Triglycerideson 12-27-2024 Triglyceride [Mass/Vol] 131 mg/dL Normal [facility] Comment on above: Order Comment: Comme nts: DC when propofol is d/c'dDC when propofol is d/c'd Result Comment: The drugs N-Acetylcysteine and Metamizole may falselydepress this assay.Normal range: <150 mg/dLBorderline High: 150-199 mg/dLHigh: 200-499 mg/dLVery High: >500 mg/dL Performed By: #### L 501.5000, L501.3620 ####[facility] [address] [place], [place], [id number] Triglycerides measurementOrd ered By: Marino Holguin on 12-27-2024 Triglyceride [Mass/Vol] 131 mg/dL <199 [facility] Comment on above: The drugs N-Acetylcy steine and Metamizole may falsely depress this assay. Normal range: <150 mg/dLBorderline High: 150-199 mg/dLHigh: 200-499 mg/dLVery High: >500 mg/dL White blood cell (WBC) count Ordered By: Marino Holguin on 12-27-2024 WBC (Bld) [#/Vol] 7.5 10*3/uL 4.4-11.0 [facility] CNOVon 12-23-2024 CNOV Normal [facility] Vit B12 SerPl-mCncon 025 Cobalamin (Vitamin B12) [Mass/Vol] 451 pg/mL Normal 232-1245 [facility] Comment on above: Order Comment: Speci men Type: BLOOD SPECIMENOrdering Facility: 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 Dependency [facility] Manager[facility] Transcribe Date/Time: Nov 07 2024 5:22A Dictated by : LESTER LOPES MD This examination was interpreted and the report reviewed and electronically signed by: LESTER LOPES MD on Nov 07 2024 5:23AM EST [facility] US Abdominal Aorta for michael Strattonered By: [facility] Provider on 11-07-2024 [facility] US Abdominal Aorta for michael erickson 11-06-2024 Radiology Study observation (narrative) [facility] US SCREENING AAAon US SCREENING AAA Normal [facility] Absolute lymphocyte countOrd ered By: Shubham Blanco on 11-05-2024 Lymphocytes Auto (Unsp spec) [#/Vol] 0.68 10*3/uL Low 0.83-4.51 [facility] Absolute neutrophil countOrd ered By: Shubham Blanco on 11-05-2024 Neutrophils (Bld) [#/Vol] 5.6 10*3/uL 2.0-7.7 [facility] Ammoniaon 11-05-2024 Ammonia (P) [Moles/Vol] 35.6 umol/L Normal 16-60 [facility] Comment on above: Performed By: #### L 500.4050, L300.3900, L501.6710, L100.0100, L503.5510, L500.4100 ####[facility] [address] [place], [address] Anion gap in Serum or Plasma Ordered By: Shubham Blanco on 11-05-2024 Anion gap [Moles/Vol] 11 mmol/L 12-05 [facility] Automated lymphocyte count a s percentage of total leukocytesOrdered By: Shubham Blanco on 11-05-2024 Lymphocytes/100 WBC Auto (Unsp spec) 8.4 % Low - [facility] BUN/creatinine ratioOrdered By: Shubhammary jo Blanco on 11-05-2024 Urea nitrogen/Creatinine [Mass ratio] 19.6 mg/mg 10- [facility] Basophil percentageOrdered B y: Shubham Blanco on 11-05-2024 Basophils/100 WBC (Bld) 0.4 % 0-1 [facility] Bilirubin, totalOrdered By: Shubham Blanco on 11-05-2024 Bilirubin [Mass/Vol] 0.89 mg/dL 0.00-1.30 [facility] CBC W/Diff, Automatedon 10-22 Absolute Lymph 0.68 X10 3/uL Low 0.83-4.51 [facility] Comment on above: Performed By: #### L 500.4050, L300.3900, L501.6710, L100.0100, L503.5510, L500.4100 ####[facility] [address] [place], [address] Absolute Neut 5.6 X10 3/uL Normal 2.0-7.7 [facility] Comment on above: Performed By: #### L 500.4050, L300.3900, L501.6710, L100.0100, L503.5510, L500.4100 ####[facility] [address] [place], [address] Basophils/100 WBC (Bld) 0.4 % Normal 0-1 [facility] Comment on above: Performed By: #### L 500.4050, L300.3900, L501.6710, L100.0100, L503.5510, L500.4100 ####[facility] [address] [place], [address] Eosinophils/100 WBC (Bld) 7.3 % High 0-5 [facility] Comment on above: Performed By: #### L 500.4050, L300.3900, L501.6710, L100.0100, L503.5510, L500.4100 ####[facility] [address] [place], [address] Erythrocyte distribution width (RBC) [Ratio] 13.6 % Normal 11.6-14.6 [facility] Comment on above: Performed By: #### L 500.4050, L300.3900, L501.6710, L100.0100, L503.5510, L500.4100 ####[facility] [address] [place], [address] Hematocrit (Bld) [Volume fraction] 37.7 % Low 40-54 [facility] Comment on above: Performed By: #### L 500.4050, L300.3900, L501.6710, L100.0100, L503.5510, L500.4100 ####[facility] [address] [place], [address] Hemoglobin (Bld) [Mass/Vol] 13.2 g/dL Normal 13.0-16.5 [facility] Comment on above: Performed By: #### L 500.4050, L300.3900, L501.6710, L100.0100, L503.5510, L500.4100 ####[facility] [address] [place], [address] IG% 0.100 Normal 0.0-0.9 [facility] Comment on above: Result Comment: IG% - Immature Granulocytes (promyelocytes, myelocytes andmetamyelocytes) > 1% indicates that a LEFT SHIFT is Present. Performed By: #### L 500.4050, L300.3900, L501.6710, L100.0100, L503.5510, L500.4100 ####[facility] [address] [place], [address] Lymphocytes/100 WBC (Bld) 8.4 % Low 19-41 [facility] Comment on above: Performed By: #### L 500.4050, L300.3900, L501.6710, L100.0100, L503.5510, L500.4100 ####[facility] [address] [place], [address] MCH (RBC) [Entitic mass] 35.3 pg High 27.0-32.0 [facility] Comment on above: Performed By: #### L 500.4050, L300.3900, L501.6710, L100.0100, L503.5510, L500.4100 ####[facility] [address] [place], [address] MCHC (RBC) [Mass/Vol] 35.0 g/dL Normal 32-36 [facility] Comment on above: Performed By: #### L 500.4050, L300.3900, L501.6710, L100.0100, L503.5510, L500.4100 ####[facility] [address] [place], [address] MCV (RBC) [Entitic vol] 100.8 fL High 80-94 [facility] Comment on above: Performed By: #### L 500.4050, L300.3900, L501.6710, L100.0100, L503.5510, L500.4100 ####[facility] [address] [place], [address] Monocytes/100 WBC (Bld) 15.3 % High 0-10 [facility] Comment on above: Performed By: #### L 500.4050, L300.3900, L501.6710, L100.0100, L503.5510, L500.4100 ####[facility] [address] [place], [address] Neutrophils/100 WBC (Bld) 68.5 % Normal 47-70 [facility] Comment on above: Performed By: #### L 500.4050, L300.3900, L501.6710, L100.0100, L503.5510, L500.4100 ####[facility] [address] [place], [address] Nucleated RBC (Bld) [#/Vol] 0 10*3/uL Normal 0-5 [facility] Comment on above: Performed By: #### L 500.4050, L300.3900, L501.6710, L100.0100, L503.5510, L500.4100 ####[facility] [address] [place], [address] Platelet mean volume (Bld) [Entitic vol] 9.7 fL Normal 6.2-12.0 [facility] Comment on above: Performed By: #### L 500.4050, L300.3900, L501.6710, L100.0100, L503.5510, L500.4100 ####[facility] [address] [place], [address] Platelets (Bld) [#/Vol] 239 10*3/uL Normal 150-450 [facility] Comment on above: Performed By: #### L 500.4050, L300.3900, L501.6710, L100.0100, L503.5510, L500.4100 ####[facility] [address] [place], [address] RBC (Bld) [#/Vol] 3.74 10*6/uL Low 4.6-6.2 [facility] Comment on above: Performed By: #### L 500.4050, L300.3900, L501.6710, L100.0100, L503.5510, L500.4100 ####[facility] [address] [place], [address] RDW SD 50.2 fl High 35.1-43.9 [facility] Comment on above: Performed By: #### L 500.4050, L300.3900, L501.6710, L100.0100, L503.5510, L500.4100 ####[facility] [address] [place], [address] WBC (Bld) [#/Vol] 8.1 10*3/uL Normal 4.4-11.0 [facility] Comment on above: Performed By: #### L 500.4050, L300.3900, L501.6710, L100.0100, L503.5510, L500.4100 ####[facility] [address] [place], [address] CRPon 11-05-2024 C-REACTIVE PROT 6.19 mg/L High 0.0-3.0 [facility] Comment on above: Performed By: #### L 500.4050, L300.3900, L501.6710, L100.0100, L503.5510, L500.4100 ####[facility] [address] [place], [address] CRP [Mass/Vol]Ordered By: Tessa Blanco on 11-05-2024 C-Reactive Protein Extended Range 6.19 mg/L High 0.0-3.0 [facility] Calculated very low density lipoprotein (VLDL) cholesterol measurementOrdered By: Shubham Blanco on 11-05-2024 Calculated very low density lipoprotein (VLDL) cholesterol measurement 19 mg/dL 5-40 [facility] VLDL Cholesterol 19 mg/dL 5-40 [facility] Carbon dioxide, total [Moles /volume] in Central venous bloodOrdered By: Shubham Blanco on 11-05-2024 CO2 [Moles/Vol] 21.0 mmol/L 21.0-32.0 [facility] Cardiology Visit Reporton Cardiology Visit Report Normal [facility] Chloride assayOrdered By: Tessa Blanco on 11-05-2024 Chloride [Moles/Vol] 104 mmol/L 98-108 [facility] Comprehensive Metabolic Prof ilon 11-05-2024 Albumin [Mass/Vol] 4.1 g/dL Normal 3.4-4.8 [facility] Comment on above: Performed By: #### L 500.4050, L300.3900, L501.6710, L100.0100, L503.5510, L500.4100 ####[facility] [address] [place], [address] Albumin/Globulin [Mass ratio] 1.2 {ratio} Normal 0.9-2.4 [facility] Comment on above: Performed By: #### L 500.4050, L300.3900, L501.6710, L100.0100, L503.5510, L500.4100 ####[facility] [address] [place], [address] ALK PHOS 141 U/L High 40-129 [facility] Comment on above: Performed By: #### L 500.4050, L300.3900, L501.6710, L100.0100, L503.5510, L500.4100 ####[facility] [address] [place], [address] ALT [Catalytic activity/Vol] 32 U/L Normal <=46 [facility] Comment on above: Performed By: #### L 500.4050, L300.3900, L501.6710, L100.0100, L503.5510, L500.4100 ####[facility] [address] [place], [address] AST [Catalytic activity/Vol] 41 U/L High <=37 [facility] Comment on above: Performed By: #### L 500.4050, L300.3900, L501.6710, L100.0100, L503.5510, L500.4100 ####[facility] [address] [place], [address] Bilirubin [Mass/Vol] 0.89 mg/dL Normal 0.00-1.30 [facility] Comment on above: Performed By: #### L 500.4050, L300.3900, L501.6710, L100.0100, L503.5510, L500.4100 ####[facility] [address] [place], [address] BUN/CRE 19.6 RATIO Normal 10-20 [facility] Comment on above: Performed By: #### L 500.4050, L300.3900, L501.6710, L100.0100, L503.5510, L500.4100 ####[facility] [address] [place], [address] Calcium [Mass/Vol] 9.8 mg/dL Normal 7.6-11.0 [facility] Comment on above: Performed By: #### L 500.4050, L300.3900, L501.6710, L100.0100, L503.5510, L500.4100 ####[facility] [address] [place], [address] Chloride [Moles/Vol] 104 mmol/L Normal 98-108 [facility] Comment on above: Performed By: #### L 500.4050, L300.3900, L501.6710, L100.0100, L503.5510, L500.4100 ####[facility] [address] [place], [address] CO2 [Moles/Vol] 21.0 mmol/L Normal 21.0-32.0 [facility] Comment on above: Performed By: #### L 500.4050, L300.3900, L501.6710, L100.0100, L503.5510, L500.4100 ####[facility] [address] [place], [address] Creatinine [Mass/Vol] 0.80 mg/dL Normal 0.70-1.20 [facility] Comment on above: Performed By: #### L 500.4050, L300.3900, L501.6710, L100.0100, L503.5510, L500.4100 ####[facility] [address] [place], [address] GAP 11 Normal 5-15 [facility] Comment on above: Performed By: #### L 500.4050, L300.3900, L501.6710, L100.0100, L503.5510, L500.4100 ####[facility] [address] [place], [address] GFR/1.73 sq M.predicted among non-blacks MDRD (S/P/Bld) [Vol rate/Area] 93 mL/min/{1.73_m2} Normal >60 [facility] Comment on above: Result Comment: mL/m in/1.73m2 CKD-EPI Creatinine Equation (2020) Performed By: #### L 500.4050, L300.3900, L501.6710, L100.0100, L503.5510, L500.4100 ####[facility] [address] [place], [address] Globulin (S) [Mass/Vol] 3.4 g/dL Normal 2.2-4.2 [facility] Comment on above: Performed By: #### L 500.4050, L300.3900, L501.6710, L100.0100, L503.5510, L500.4100 ####[facility] [address] [place], [address] Glucose [Mass/Vol] 95 mg/dL Normal 70-99 [facility] Comment on above: Performed By: #### L 500.4050, L300.3900, L501.6710, L100.0100, L503.5510, L500.4100 ####[facility] [address] [place], [address] Potassium [Moles/Vol] 5.0 mmol/L Normal 3.3-5.1 [facility] Comment on above: Performed By: #### L 500.4050, L300.3900, L501.6710, L100.0100, L503.5510, L500.4100 ####[facility] [address] [place], [address] Sodium [Moles/Vol] 136 mmol/L Normal 133-145 [facility] Comment on above: Performed By: #### L 500.4050, L300.3900, L501.6710, L100.0100, L503.5510, L500.4100 ####[facility] [address] [place], [address] T PROT 7.4 g/dL Normal 5.9-8.4 [facility] Comment on above: Performed By: #### L 500.4050, L300.3900, L501.6710, L100.0100, L503.5510, L500.4100 ####[facility] [address] [place], [address] Urea nitrogen [Mass/Vol] 16 mg/dL Normal 4-19 [facility] Comment on above: Performed By: #### L 500.4050, L300.3900, L501.6710, L100.0100, L503.5510, L500.4100 ####[facility] [address], [address] Eosinophil percentageOrdered By: Shubham Blanco on 11-05-2024 Eosinophils/100 WBC (Bld) 7.3 % High 0-5 [facility] Erythrocyte distribution wid th (RBC) [Ratio]Ordered By: Shubham Blanco on 11-05-2024 Erythrocyte distribution width (RBC) [Entitic vol] 50.2 fL High 35.1-43.9 [facility] Erythrocyte distribution wid th ratioOrdered By: Shubham Blanco on 11-05-2024 Erythrocyte distribution width (RBC) [Ratio] 13.6 % 11.6-14.6 [facility] Erythrocyte distribution wid th standard deviationOrdered By: Shubham Blanco on 11-05-2024 Erythrocyte distribution width (RBC) [Ratio] 50.2 fl High 35.1-43.9 [facility] GFR/1.73 sq M.predicted judson g non-blacks MDRD (S/P/Bld) [Vol rate/Area]Ordered By: Shubham Blanco on 11-05-2024 Estimated GFR (MDRD) Non-Af Amer 93 >60 [facility] Comment on above: mL/min/1.73m2 CKD-EP I Creatinine Equation (2020) Glomerular filtration rate ( GFR) estimation/1.73 sq m using serum, plasma, or whole bOrdered By: Shubham Blanco on 11-05-2024 GFR/1.73 sq M.predicted among non-blacks MDRD (S/P/Bld) [Vol rate/Area] 93 mL/min/{1.73_m2} >60 [facility] Comment on above: mL/min/1.73m2 CKD-EP I Creatinine Equation (2020) Hematocrit Auto (Bld) [Volum e fraction]Ordered By: Shubham Blanco on 11-05-2024 Hematocrit (Bld) [Volume fraction] 37.7 % Low 40-54 [facility] Hemoglobin measurementOrdere d By: Shubham Blanco on 04-15-2025 Hemoglobin (Bld) [Mass/Vol] 13.2 g/dL 13.0-16.5 [facility] Immature granulocytes/100 WB C Auto (Bld)Ordered By: Shubham Blanco on 11-05-2024 Immature granulocytes/100 WBC (Bld) 0.100 % 0.0-0.9 [facility] Comment on above: IG% - Immature Granu locytes (promyelocytes, myelocytes and metamyelocytes) > 1% indicates that a LEFT SHIFT is Present. International normalized rat io (INR) calculationOrdered By: Shubham Blanco on 11-05-2024 INR Coag (Bld) [Relative time] 1.0 {INR} [facility] LDL calc ser/plasOrdered By: Shubham Blanco on 11-05-2024 Cholesterol in LDL [Mass/Vol] 85 mg/dL [facility] Comment on above: Cpjupdgetn=387-871 m g/dL & Higher Djoi=788 mg/dL or greater LDL Cholesterol, Calculated 85 mg/dL [facility] Comment on above: Ylswbldifh=009-285 m g/dL & Higher Bjpj=953 mg/dL or greater Laboratory - Chemistry and C hemistry - challengeOrdered By: Shubham Blanco on 11-05-2024 AST [Catalytic activity/Vol] 41 U/L High <38 [facility] Lipid Profileon 11-05-2024 CHOL:HDL 2.92 Normal [facility] Comment on above: Performed By: #### L 500.4050, L300.3900, L501.6710, L100.0100, L503.5510, L500.4100 ####[facility] [address] [place], [place], [id number] Cholesterol [Mass/Vol] 158 mg/dL Normal <=200 [facility] Comment on above: Result Comment: Chol esterol level, Desirable <200 mg/dLBorderline high cholesterol 200-239 mg/dLHigh cholesterol >=240 mg/dLRecommendations of the NCEP Adult Treatment Panel for thefollowing risk-cutoff thresholds for the [place] Americanpopulation. Performed By: #### L 500.4050, L300.3900, L501.6710, L100.0100, L503.5510, L500.4100 ####[facility] [address] [place], [address] Cholesterol in HDL [Mass/Vol] 54 mg/dL Normal [facility] Comment on above: Result Comment: Jayleen onal Cholesterol Education Program (NCEP) guidelines:<40 mg/dL: Low HDL-cholesterol (major risk factor for CHD)>= 60 mg/dL: High HDL-cholesterol (negative risk factor forCHD)HDL-cholesterol is affected by a number of factors, e.g.smoking, exercise, hormones, sex and age. Performed By: #### L 500.4050, L300.3900, L501.6710, L100.0100, L503.5510, L500.4100 ####[facility] [address] [place], [address] Cholesterol in LDL [Mass/Vol] 85 mg/dL Normal [facility] Comment on above: Result Comment: Bord qjhdnv=259-857 mg/dL Higher Jlip=128 mg/dL or greater Performed By: #### L 500.4050, L300.3900, L501.6710, L100.0100, L503.5510, L500.4100 ####[facility] [address] [place], [address] Cholesterol in VLDL [Mass/Vol] 19 mg/dL Normal 5-40 [facility] Comment on above: Performed By: #### L 500.4050, L300.3900, L501.6710, L100.0100, L503.5510, L500.4100 ####[facility] [address] [place], [address] Triglyceride [Mass/Vol] 94 mg/dL Normal [facility] Comment on above: Result Comment: The drugs N-Acetylcysteine and Metamizole may falselydepress this assay.Normal range: <150 mg/dLBorderline High: 150-199 mg/dLHigh: 200-499 mg/dLVery High: >500 mg/dL Performed By: #### L 500.4050, L300.3900, L501.6710, L100.0100, L503.5510, L500.4100 ####[facility] [address], [address] Lymphocytes Auto (Unsp spec) [#/Vol]Ordered By: Shubham Blanco on 11-05-2024 Lymphocytes (Bld) [#/Vol] 0.68 10*3/uL Low 0.83-4.51 [facility] Lymphocytes/100 WBC Auto (Un sp spec)Ordered By: Shubham Blanco on 11-05-2024 Lymphocytes/100 WBC (Bld) 8.4 % Low 19-41 [facility] MCV (mean corpuscular volume ) determinationOrdered By: Shubham Blanco on 11-05-2024 MCV (RBC) [Entitic vol] 100.8 fL High 80-94 [facility] Mean corpuscular hemoglobin (MCH) determinationOrdered By: Shubham Blanco on 11-05-2024 MCH (RBC) [Entitic mass] 35.3 pg High 27.0-32.0 [facility] Mean corpuscular hemoglobin concentration (MCHC) determinationOrdered By: Shubham Blanco on 11-05-2024 MCHC (RBC) [Mass/Vol] 35.0 g/dL 32-36 [facility] Mean platelet volume determi nationOrdered By: Shubham Blanco on 11-05-2024 Platelet mean volume (Bld) [Entitic vol] 9.7 fL 6.2-12.0 [facility] Monocyte percentageOrdered B y: Shubham Blanco on 11-05-2024 Monocytes/100 WBC (Bld) 15.3 % High 0-10 [facility] Neutrophil percentageOrdered By: Shubham Blanco on 11-05-2024 Neutrophils/100 WBC (Bld) 68.5 % 47-70 [facility] Nucleated red blood cell per centageOrdered By: Shubham Blanco on 11-05-2024 Nucleated RBC/100 WBC (Bld) [Ratio] 0 % 0-5 [facility] Platelet countOrdered By: Tessa Blanco on 11-05-2024 Platelets (Bld) [#/Vol] 239 10*3/uL 150-450 [facility] Potassium (Unsp spec) [Mass/ Vol]Ordered By: Shubham Blanco on 11-05-2024 Potassium [Moles/Vol] 5.0 mmol/L 3.3-5.1 [facility] Potassium measurement (mass/ volume)Ordered By: Shubham Blanco on 11-05-2024 Potassium (Unsp spec) [Mass/Vol] 5.0 mmol/L 3.3-5.1 [facility] Prothrombin Time w/INRon INR Coag (PPP) [Relative time] 1.0 {INR} Normal [facility] Comment on above: Performed By: #### L 500.4050, L300.3900, L501.6710, L100.0100, L503.5510, L500.4100 ####[facility] [address] [place], [address] PT Coag (PPP) [Time] 13.7 s Normal 11.7-14.9 [facility] Comment on above: Performed By: #### L 500.4050, L300.3900, L501.6710, L100.0100, L503.5510, L500.4100 ####[facility] [address] [place], [address] Prothrombin timeOrdered By: Shubham Blanco on 11-05-2024 PT Coag (PPP) [Time] 13.7 s 11.7-14.9 [facility] RBC Auto (Bld) [#/Vol]Ordere d By: Shubham Blanco on 11-05-2024 RBC (Bld) [#/Vol] 3.74 10*6/uL Low 4.6-6.2 [facility] Screening total cholesterol/ high density lipoprotein (HDL) cholesterol ratioOrdered By: Shubham Blanco on 11-05-2024 Cholesterol.total/Cho lesterol in HDL [Mass ratio] 2.92 {ratio} [facility] Serum creatinine measurement (mass/volume)Ordered By: Shubham Blanco on 11-05-2024 Creatinine [Mass/Vol] 0.80 mg/dL 0.70-1.20 [facility] Serum globulin measurementOr dered By: Shubham Blanco on 11-05-2024 Globulin (S) [Mass/Vol] 3.4 g/dL 2.2-4.2 [facility] Serum glucose measurement (m ass/volume)Ordered By: Shubham Blanco on 11-05-2024 Glucose [Mass/Vol] 95 mg/dL 70-99 [facility] Serum or plasma C reactive p rotein measurement (mass/volume)Ordered By: Shubham Blanco on 11-05-2024 CRP [Mass/Vol] 6.19 mg/L High 0.0-3.0 [facility] Serum or plasma alanine guevara otransferase (ALT) measurementOrdered By: Shubham Blanco on 11-05-2024 ALT [Catalytic activity/Vol] 32 U/L <47 [facility] Serum or plasma albumin reid urement (mass/volume)Ordered By: Shubham Blanco on 11-05-2024 Albumin [Mass/Vol] 4.1 g/dL 3.4-4.8 [facility] Serum or plasma albumin/glob ulin mass ratioOrdered By: Shubham Blanco on 11-05-2024 Albumin/Globulin [Mass ratio] 1.2 {ratio} 0.9-2.4 [facility] Serum or plasma alkaline adelfo sphatase measurementOrdered By: Shubham Blanco on 11-05-2024 ALP [Catalytic activity/Vol] 141 U/L High 40-129 [facility] Serum or plasma calcium reid urement (mass/volume)Ordered By: Shubham Blanco on 11-05-2024 Calcium [Mass/Vol] 9.8 mg/dL 7.6-11.0 [facility] Serum or plasma cholesterol in HDL measurement (mass/volume)Ordered By: Shubham Blanco on 11-05-2024 Cholesterol in HDL [Mass/Vol] 54 mg/dL >40 [facility] Comment on above: National Cholesterol Education Program (NCEP) guidelines:<40 mg/dL: Low HDL-cholesterol (major risk factor for CHD)>= 60 mg/dL: High HDL-cholesterol (negative risk factor for CHD)HDL-cholesterol is affected by a number of factors, e.g. smoking, exercise, hormones, sex and age. Serum or plasma cholesterol measurement (mass/volume)Ordered By: Shubham Blanco on 11-05-2024 Cholesterol [Mass/Vol] 158 mg/dL <201 [facility] Comment on above: Cholesterol level, D esirable <200 mg/dLBorderline high cholesterol 200-239 mg/dLHigh cholesterol >=240 mg/dLRecommendations of the NCEP Adult Treatment Panel for the following risk-cutoff thresholds for the [place] population. Serum or plasma urea nitroge n measurement (mass/volume)Ordered By: Shubham Blanco on 11-05-2024 Urea nitrogen [Mass/Vol] 16 mg/dL 4-19 [facility] Sodium levelOrdered By: Nilda Blanco on 11-05-2024 Sodium [Moles/Vol] 136 mmol/L 133-145 [facility] Total proteinOrdered By: Gennaro Blanco on 11-05-2024 Protein [Mass/Vol] 7.4 g/dL 5.9-8.4 [facility] Triglycerides measurementOrd ered By: Shubham Blanco on 11-05-2024 Triglyceride [Mass/Vol] 94 mg/dL <199 [facility] Comment on above: The drugs N-Acetylcy steine and Metamizole may falsely depress this assay. Normal range: <150 mg/dLBorderline High: 150-199 mg/dLHigh: 200-499 mg/dLVery High: >500 mg/dL Venous blood ammonia measure mentOrdered By: Shubham Blanco on 11-05-2024 Ammonia (P) [Moles/Vol] 35.6 umol/L 16-60 [facility] White blood cell (WBC) count Ordered By: Shubham Blanco on 11-05-2024 WBC (Bld) [#/Vol] 8.1 10*3/uL 4.4-11.0 [facility] CNOVon 11-01-2024 CNOV Normal [facility] 25(OH)D3 SerPl-mCncon 2024 25-hydroxyvitamin D3 [Mass/Vol] 38.5 ng/mL Normal 31.0-80.0 [facility] Comment on above: Order Comment: Speci men Type: BLOOD SPECIMENOrdering Facility: [facility] Address: [address] [place] [address] Result Comment: Clas sification of 25 [place] Vitamin D status:Deficiency/Insufficiency: < or = 30 ng/ml.Sufficiency/Optimal Levels: 31-80 ng/mLToxicity: > 100 ng/mL.Test performed by chemiluminescent immunoassay. Performed By: #### 1 989-3 ####[facility] [id number] [address] [address] [place] C3 SerPl-mCncon 10-30-2024 Complement C3 [Mass/Vol] 173 mg/dL High 86-166 [facility] Comment on above: Order Comment: Speci men Type: BLOOD SPECIMENOrdering Facility: [facility] Address: [address] [place] [address] Performed By: #### 1 988-5, 4485-9, 4498-2, 2132-03 ####[facility] [id number] [address] [address] [place] C4 SerPl-mCncon 10-30-2024 Complement C4 [Mass/Vol] 32 mg/dL Normal 13-46 [facility] Comment on above: Order Comment: Speci men Type: BLOOD SPECIMENOrdering Facility: [facility] Address: [address] [place] [address] Performed By: #### 1 988-5, 4485-9, 4498-2, 2132-03 ####[facility] [id number] [address] [address] [place] CBC W Auto Differential pane l (Bld)on 10-30-2024 Basophils (Bld) [#/Vol] 0.05 10*3/uL Normal <0.11 [facility] Comment on above: Order Comment: Speci men Type: BLOOD SPECIMENOrdering Facility: [facility] Address: [address] [place] [address] Performed By: #### 5 7021-8, 7 ####[facility] LABCLIA [id number] [facility] [address] [place] [address] [place] Basophils/100 WBC (Bld) 0.8 % Normal [facility] Comment on above: Order Comment: Speci men Type: BLOOD SPECIMENOrdering Facility: [facility] Address: [address] [place] [address] Performed By: #### 5 7021-8, 7 ####[facility] LABCLIA [id number] [address], [facility] [place] Differential cell count method Nom (Bld) Auto Normal [facility] Comment on above: Order Comment: Speci men Type: BLOOD SPECIMENOrdering Facility: [facility] Address: [address] [place] [address] Performed By: #### 5 7021-8, 7 ####[facility] LABCLIA [id number] [address], [place] [address] [place] Eosinophils (Bld) [#/Vol] 0.46 10*3/uL High <0.46 [facility] Comment on above: Order Comment: Speci men Type: BLOOD SPECIMENOrdering Facility: [facility] Address: [address] [place] [address] Performed By: #### 5 7021-8, 4537-01 ####[facility] LABCLIA [id number] [facility] [address], [facility] [place] Eosinophils/100 WBC (Bld) 7.0 % Normal [facility] Comment on above: Order Comment: Speci men Type: BLOOD SPECIMENOrdering Facility: [facility] Address: [address] [place] [address] Performed By: #### 5 7021-8, 4537-01 ####[facility] LABCLIA [id number] [facility] [address], [facility] [place] Erythrocyte distribution width (RBC) [Ratio] 13.5 % Normal 11.5-15.0 [facility] Comment on above: Order Comment: Speci men Type: BLOOD SPECIMENOrdering Facility: [facility] Address: [address] [place] [address] Performed By: #### 5 7021-8, 4537-7 ####[facility] LABCLIA [id number] [place] [address] [place] Hematocrit (Bld) [Volume fraction] 41.9 % Normal 39.0-51.0 [facility] Comment on above: Order Comment: Speci men Type: BLOOD SPECIMENOrdering Facility: [facility] Address: [address] [place] [address] Performed By: #### 5 7021-8, 4537-7 ####[facility] LABCLIA [id number] [place] [address] [place] Hemoglobin (Bld) [Mass/Vol] 14.0 g/dL Normal 13.0-17.0 [facility] Comment on above: Order Comment: Speci men Type: BLOOD SPECIMENOrdering Facility: [facility] Address: [address] [place] [address] Performed By: #### 5 7021-8, 7-7 ####[facility] LABCLIA [id number] [place] [address] [place] Immature granulocytes (Bld) [#/Vol] 10*3/uL Normal <0.10 [facility] Comment on above: Order Comment: Speci men Type: BLOOD SPECIMENOrdering Facility: [facility] Address: [address] [place] [address] Performed By: #### 5 7021-8, 4536-7 ####[facility] LABCLIA [id number] [place] [address] [place] Immature granulocytes/100 WBC (Bld) 0.3 % Normal [facility] Comment on above: Order Comment: Speci men Type: BLOOD SPECIMENOrdering Facility: [facility] Address: [address] [place] [address] Performed By: #### 5 7021-8, 4537-7 ####[facility] LABCLIA [id number] [place] [address] [place] Lymphocytes (Bld) [#/Vol] 0.59 10*3/uL Low 1.00-4.00 [facility] Comment on above: Order Comment: Speci men Type: BLOOD SPECIMENOrdering Facility: [facility] Address: [address] [place] [address] Performed By: #### 5 7021-8, 453-7 ####[facility] LABCLIA [id number] [place] [address] [place] Lymphocytes/100 WBC (Bld) 9.0 % Normal [facility] Comment on above: Order Comment: Speci men Type: BLOOD SPECIMENOrdering Facility: [facility] Address: [address] [place] [address] Performed By: #### 5 7021-8, 4537-7 ####[facility] LABCLIA [id number] [place] [address] [place] MCH (RBC) [Entitic mass] 34.6 pg High 26.0-34.0 [facility] Comment on above: Order Comment: Speci men Type: BLOOD SPECIMENOrdering Facility: [facility] Address: [address] [place] [address] Performed By: #### 5 7021-8, 4537-7 ####[facility] LABCLIA [id number] [place] [address] [place] MCHC (RBC) [Mass/Vol] 33.4 g/dL Normal 30.5-36.0 [facility] Comment on above: Order Comment: Speci men Type: BLOOD SPECIMENOrdering Facility: [facility] Address: [address] [place] [address] Performed By: #### 5 7021-8, 4536-7 ####[facility] LABCLIA [id number] [place] [address] [place] MCV (RBC) [Entitic vol] 103.5 fL High 80.0-100.0 [facility] Comment on above: Order Comment: Speci men Type: BLOOD SPECIMENOrdering Facility: [facility] Address: [address] [place] [address] Performed By: #### 5 7021-8, 7 ####[facility] LABCLIA [id number] [place] [address] [place] Monocytes (Bld) [#/Vol] 0.72 10*3/uL Normal <0.87 [facility] Comment on above: Order Comment: Speci men Type: BLOOD SPECIMENOrdering Facility: [facility] Address: [address] [place] [address] Performed By: #### 5 7021-8, 7 ####[facility] LABIA [id number] [place] [address] [place] Monocytes/100 WBC (Bld) 10.9 % Normal [facility] Comment on above: Order Comment: Speci men Type: BLOOD SPECIMENOrdering Facility: [facility] Address: [address] [place] [address] Performed By: #### 5 7021-8, 4537-01 ####[facility] LABCLIA [id number] [place] [id number] [place] Neutrophils (Bld) [#/Vol] 4.74 10*3/uL Normal 1.45-7.50 [facility] Comment on above: Order Comment: Speci men Type: BLOOD SPECIMENOrdering Facility: [facility] Address: [address] [place] [address] Performed By: #### 5 7021-8, 7 ####[facility] LABCLIA [id number] [place] [address] [place] Neutrophils/100 WBC (Bld) 72.0 % Normal [facility] Comment on above: Order Comment: Speci men Type: BLOOD SPECIMENOrdering Facility: [facility] Address: [address] [place] [address] Performed By: #### 5 7021-8, 4537-7 ####[facility] LABCLIA [id number] [place] [address] [place] Nucleated RBC (Bld) [#/Vol] 10*3/uL Normal <0.01 [facility] Comment on above: Order Comment: Speci men Type: BLOOD SPECIMENOrdering Facility: [facility] Address: [address] [place] [address] Performed By: #### 5 7021-8, 4537-7 ####[facility] LABIA [id number] [place] [address] [place] Nucleated RBC/100 WBC (Bld) [Ratio] 0.0 /100 WBC Normal [facility] Comment on above: Order Comment: Speci men Type: BLOOD SPECIMENOrdering Facility: [facility] Address: [address] [place] [address] Performed By: #### 5 7021-8, 4537-7 ####[facility] LABIA [id number] [place] [address] [place] Platelet mean volume (Bld) [Entitic vol] 10.4 fL Normal 9.0-12.7 [facility] Comment on above: Order Comment: Speci men Type: BLOOD SPECIMENOrdering Facility: [facility] Address: [address] [place] [address] Performed By: #### 5 7021-8, 4537-7 ####[facility] LABCLIA [id number] [place] [address] [place] Platelets (Bld) [#/Vol] 208 10*3/uL Normal 150-400 [facility] Comment on above: Order Comment: Speci men Type: BLOOD SPECIMENOrdering Facility: [facility] Address: [address] [place] [address] Performed By: #### 5 7021-8, 4537-7 ####[facility] LABCLIA [id number] [place] [address] [place] RBC (Bld) [#/Vol] 4.05 10*6/uL Low 4.20-6.00 [facility] Comment on above: Order Comment: Speci men Type: BLOOD SPECIMENOrdering Facility: [facility] Address: [address] [place] [address] Performed By: #### 5 7021-8, 4537-7 ####[facility] LABCLIA [id number] [place] [address] [place] WBC (Bld) [#/Vol] 6.58 10*3/uL Normal 3.70-11.00 [facility] Comment on above: Order Comment: Speci men Type: BLOOD SPECIMENOrdering Facility: [facility] Address: [address] [place] [address] Performed By: #### 5 7021-8, 4537-7 ####[facility] LABCLIA [id number] [place] [address] [place] CRP SerPl-mCncon 10-30-2024 CRP [Mass/Vol] 0.6 mg/dL Normal <0.9 [facility] Comment on above: Order Comment: Speci men Type: BLOOD SPECIMENOrdering Facility: [facility] Address: [address] [place] [address] Performed By: #### 1 988-5, 4485-9, 4498-2, 2132-9 ####[facility] LABCLIA [id number] [place] [address] [place] Comprehensive metabolic 2000 panelon 10-30-2024 Albumin [Mass/Vol] 4.3 g/dL Normal 3.9-4.9 [facility] Comment on above: Order Comment: Speci men Type: BLOOD SPECIMENOrdering Facility: [facility] Address: [address] [place] [address] Performed By: #### L IPNF, 54286-1, 23525-7, 3084-1 ####[facility] LABCLIA [id number] [place] [address] [place] ALP [Catalytic activity/Vol] 145 U/L High 38-113 [facility] Comment on above: Order Comment: Speci men Type: BLOOD SPECIMENOrdering Facility: [facility] Address: [address] [place] [address] Performed By: #### L IPNF, 69006-8, 07786-6, 3084-1 ####[facility] LABCLIA [id number] [place] [address] [place] ALT [Catalytic activity/Vol] 38 U/L Normal 10-54 [facility] Comment on above: Order Comment: Speci men Type: BLOOD SPECIMENOrdering Facility: [facility] Address: [address] [place] [address] Performed By: #### L IPNF, 74807-2, 10077-5, 3084-1 ####[facility] LABCLIA [id number] [place] [address] [place] Anion gap [Moles/Vol] 13 mmol/L Normal 8-15 [facility] Comment on above: Order Comment: Speci men Type: BLOOD SPECIMENOrdering Facility: [facility] Address: [address] [place] [address] Performed By: #### L IPNF, 95490-3, 70304-1, 3084-1 ####[facility] LABCLIA [id number] [place] [id number] [place] AST [Catalytic activity/Vol] 51 U/L High 14-40 [facility] Comment on above: Order Comment: Speci men Type: BLOOD SPECIMENOrdering Facility: [facility] Address: [address] [place] [address] Performed By: #### L IPNF, 59023-3, 17317-8, 3084-1 ####[facility] LABCLIA [id number] [place] [id number] [place] Bilirubin [Mass/Vol] 0.8 mg/dL Normal 0.2-1.3 [facility] Comment on above: Order Comment: Speci men Type: BLOOD SPECIMENOrdering Facility: [facility] Address: [address] [place] [address] Performed By: #### L IPNF, 40101-8, 38413-4, 3084-1 ####[facility] LABCLIA [id number] [place] [address] [place] Calcium [Mass/Vol] 9.9 mg/dL Normal 8.5-10.2 [facility] Comment on above: Order Comment: Speci men Type: BLOOD SPECIMENOrdering Facility: [facility] Address: [address] [place] [address] Performed By: #### L IPNF, 30717-6, 68468-9, 3084-1 ####[facility] LABCLIA [id number] [place] [address] [place] Chloride [Moles/Vol] 104 mmol/L Normal 98-107 [facility] Comment on above: Order Comment: Speci men Type: BLOOD SPECIMENOrdering Facility: [facility] Address: [address] [place] [address] Performed By: #### L IPNF, 51336-5, 74555-8, 3084-1 ####[facility] LABCLIA [id number] [address] [address] [place] CO2 [Moles/Vol] 22 mmol/L Normal 22-30 [facility] Comment on above: Order Comment: Medina men Type: BLOOD SPECIMENOrdering Facility: [facility] Address: [address] [place] [address] Performed By: #### L IPNF, 39951-7, 41957-3, 4-1 ####[facility] LABCLIA [id number] [place] [id number] [place] Creatinine [Mass/Vol] 0.67 mg/dL Low 0.73-1.22 [facility] Comment on above: Order Comment: Kristii men Type: BLOOD SPECIMENOrdering Facility: [facility] Address: [address] [place] [address] Performed By: #### L IPNF, 04707-2, 28617-9, 3083-07 ####[facility] LABCLIA [id number] [place] [address] [place] Creatinine and Glomerular filtration rate.predicted panel (S/P/Bld) 98 mL/min/1.73m??? Normal >=60 [facility] Comment on above: Order Comment: Medina peck Type: BLOOD SPECIMENOrdering Facility: [facility] Address: [address] [place] [address] Result Comment: Micaela mated Glomerular Filtration Rate [...] accurately reflect actual GFR. Performed By: #### L IPNF, 08762-7, 42976-9, 3083-1 ####[facility] LABCLIA [id number] [place] [id number] [place] Glucose [Mass/Vol] 148 mg/dL High 74-99 [facility] Comment on above: Order Comment: Medina men Type: BLOOD SPECIMENOrdering Facility: [facility] Address: [address] [place] [address] Result Comment: The [place] [employer] (ADA) provides guidance for cutoff values for fasting glucose and random glucose. The ADA defines fasting as no caloric intake for at least 8 hours. Fasting plasma glucose results between 100 to 125 mg/dL indicate increased risk for diabetes (prediabetes).Fasting plasma glucose results greater than or equal to 126 mg/dL meet the criteria for diagnosis of diabetes. In the absence of unequivocal hyperglycemia, results should be confirmed by repeat testing. In a patient with classic symptoms of hyperglycemia or hyperglycemic crisis, random plasma glucose results greater than or equal to 200 mg/dL meet the criteria for diagnosis of diabetes.Reference: Standards of Medical Care in Diabetes 2016, [place] [employer]. Diabetes Care. 2016.39(Suppl 1). Performed By: #### L IPHARJIT, 53940-5, 00204-7, 4-1 ####[facility] LABCLIA [id number] [place] [address] [place] Potassium [Moles/Vol] 4.7 mmol/L Normal 3.7-5.1 [facility] Comment on above: Order Comment: Speci men Type: BLOOD SPECIMENOrdering Facility: [facility] Address: [address] [place] [address] Performed By: #### L IPNF, 75182-5, 33958-1, 3083- ####[facility] LABCLIA [id number] [place] [address] [place] Protein [Mass/Vol] 7.5 g/dL Normal 6.3-8.0 [facility] Comment on above: Order Comment: Speci men Type: BLOOD SPECIMENOrdering Facility: [facility] Address: [address] [place] [address] Performed By: #### L IPNF, 08221-7, 92234-2, 3083-1 ####[facility] LABCLIA [id number] [place] [id number] [place] Sodium [Moles/Vol] 139 mmol/L Normal 136-144 [facility] Comment on above: Order Comment: Speci men Type: BLOOD SPECIMENOrdering Facility: [facility] Address: [address] [place] [address] Performed By: #### L IPNF, 49109-2, 55302-1, 3084-1 ####[facility] LABCLIA [id number] [place] [address] [place] Urea nitrogen [Mass/Vol] 12 mg/dL Normal 9-24 [facility] Comment on above: Order Comment: Speci men Type: BLOOD SPECIMENOrdering Facility: [facility] Address: [address] [place] [address] Performed By: #### L IPNF, 22530-5, 63779-7, 3084-1 ####[facility] LABCLIA [id number] [place] [address] [place] DNA ANTIBODY DS BLDon 2024 DNA ANTIBODY 357 IU/mL High <=200 [facility] Comment on above: Order Comment: Speci men Type: BLOOD SPECIMENOrdering Facility: [facility] Address: [address] [place] [address] Result Comment: Nega tive: <200 IU/mLEquivocal: 201-300 IU/mLModerate Positive: 301-800 IU/mLStrong Positive: >801 IU/mL Performed By: #### D NAAB ####[facility] LABCLIA [id number] [place] [address] [place] DNA ANTIBODY QUALITATIVE INTERPRETATION Positive Abnormal Negative [facility] Comment on above: Order Comment: Speci men Type: BLOOD SPECIMENOrdering Facility: [facility] Address: [address] [place] [address] Performed By: #### D NAAB ####[facility] LABCLIA [id number] [place] [address] [place] ESR Westergren method (Bld) [Velocity]on 10-30-2024 ESR (Bld) [Velocity] 22 mm/h High 0-15 [facility] Comment on above: Order Comment: Speci men Type: BLOOD SPECIMENOrdering Facility: [facility] Address: [address] [place] [address] Performed By: #### 5 7021-8, 4537-7 ####[facility] LABCLIA [id number] [place] [address] [place] Free PSA [Mass/Vol]on 2024 Free PSA/Total PSA [Mass fraction] 19 % Normal [facility] Comment on above: Order Comment: Speci men Type: BLOOD SPECIMENOrdering Facility: [facility] Address: [address] [place] [address] Result Comment: Tota l and free PSA test methodology used is the Electrochemiluminescence Immunoassay by [employer]. Total or free PSA values by differing methodologies cannot be interchanged.The below table lists the probability of finding prostate cancer upon needle biopsy, for men 50 years or older and total PSA concentrations from 4.0-10.0 ng/mL. Results should be interpreted within the broader clinical context.Free PSA(%) 50-59 years 60-69 years >69 years <11 49.2% 57.5% 64.5% 11-18 26.9% 33.9% 40.8% 19-25 18.3% 23.9% 29.7% >25 9.1% 12.2% 15.8% Performed By: #### L IPNF, 95878-6, 63010-2, 3084-1 ####[facility] LABCLIA [id number] [place] [id number] [place] Prostate specific Ag [Mass/Vol] 4.22 ng/mL High <2.60 [facility] Comment on above: Order Comment: Speci men Type: BLOOD SPECIMENOrdering Facility: [facility] Address: [address] [place] [address] Result Comment: Tota l PSA test methodology used is the Electrochemiluminescence Immunoassay by [employer]. Total PSA values by differing methodologies cannot be interchanged.For an individual patient, the significance of a [...] be individualized after consideration of all these factors.REFERENCE:Nilson Mancuso M.D., M.P.H., Lance Garber M.D., Ph.D., Patria Hartley M.D., Raquel Ahmadi, M.P.H., Lisseth Rush, Sc.D. Effect of Verification Bias on Screening for Prostate Cancer by Measurement of Prostatic Specific Antigen. N Engl J Med 2003,349:335-42. Performed By: #### L IPNF, 09803-0, 43162-0, 3084-1 ####[facility] LABCLIA [id number] [place] [address] [place] LIPID PANEL, NONFASTINGon Cholesterol [Mass/Vol] 182 mg/dL Normal <200 [facility] Comment on above: Order Comment: Speci men Type: BLOOD SPECIMENOrdering Facility: [facility] Address: [address] [place] [address] Result Comment: <200 mg/dL, Desirable 200-239 mg/dL, Borderline high>239 mg/dL, High Performed By: #### L IPNF, 43979-8, 04123-8, 3084-1 ####[facility] LABCLIA [id number] [place] [address] [place] HDL CHOLESTEROL, NF 46 mg/dL Normal >39 [facility] Comment on above: Order Comment: Speci men Type: BLOOD SPECIMENOrdering Facility: [facility] Address: [address] [place] [address] Result Comment: 40-5 9 mg/dL, Acceptable>59 mg/dL, High: Negative risk factor for coronary heart disease<40 mg/dL, Low: Positive risk factor for coronary heart disease Performed By: #### L IPNF, 15361-3, 70040-8, 3083-1 ####[facility] LABCLIA [id number] [place] [address] [place] LDL CHOLESTEROL, NF 113 mg/dL High <100 [facility] Comment on above: Order Comment: Speci men Type: BLOOD SPECIMENOrdering Facility: [facility] Address: [address] [place] [address] Result Comment: <100 mg/dL, Optimal 100-129 mg/dL, Near optimal/above optimal 130-159 mg/dL, Borderline high 160-189 mg/dL, High>189 mg/dL, Very highSecondary prevention optimal LDL Cholesterol levels are recommended to be < 70 mg/dL Performed By: #### L IPNF, 28040-9, 93581-3, 3083-07 ####[facility] LABCLIA [id number] [address] [place] LDL/HDL RATIO, NF 2.46 mg/dL Normal <2.54 [facility] Comment on above: Order Comment: [place] men Type: BLOOD SPECIMENOrdering Facility: [facility] Address: [address] [place] [address] Result Comment: Refe rence:1. National Cholesterol Education Program ATP III Guideline At-A-Glance Quick Desk Reference: National Heart, Lung, and Blood Cameron. National Institutes of Health. 2001: NIH Publication No. 01-3305.2. An International Atherosclerosis Society position paper: global recommendations for the management of dyslipidemia: executive summary, Atherosclerosis. 2014: 232(2):410-413. Performed By: #### L IPNF, 39324-1, 96686-9, 3083- ####[facility] LABCLIA [id number] [address] [place] NON HDL CHOL, NF 136 mg/dL High <130 [facility] Comment on above: Order Comment: Kristii men Type: BLOOD SPECIMENOrdering Facility: [facility] Address: [address] [place] [address] Result Comment: <130 mg/dL, Optimal 130-159 mg/dL, Near optimal/above optimal 160-189 mg/dL, Borderline high 190-219 mg/dL, High>219 mg/dL, Very highSecondary prevention optimal non HDL Cholesterol levels are recommended to be <100 mg/dL Performed By: #### L IPNF, 70187-9, 26629-3, 4-1 ####[facility] LABCLIA [id number] [place] [id number] [place] T CHOL/HDL RATIO NF 3.96 mg/dL Normal <5.10 [facility] Comment on above: Order Comment: Speci men Type: BLOOD SPECIMENOrdering Facility: [facility] Address: [address] [place] [address] Performed By: #### L IPNF, 35301-6, 94622-2, 3083-1 ####[facility] LABCLIA [id number] [place] [address] [place] TRIGLYCERIDES, NF 113 mg/dL Normal <150 [facility] Comment on above: Order Comment: Speci men Type: BLOOD SPECIMENOrdering Facility: [facility] Address: [address] [place] [address] Result Comment: <150 mg/dL, Normal 150-199 mg/dL, Borderline high 200-499 mg/dL, High>499 mg/dL, Very high Performed By: #### L IPNF, 20259-9, 96910-5, 3083-1 ####[facility] LABCLIA [id number] [place] [id number] [place] VLDL CHOLESTEROL, NF 23 mg/dL Normal <30 [facility] Comment on above: Order Comment: Speci men Type: BLOOD SPECIMENOrdering Facility: [facility] Address: [address] [place] [address] Performed By: #### L IPNF, 78652-1, 04527-9, 3083- ####[facility] LABCLIA [id number] [address] [place] [address] [place] Urate SerPl-mCncon Urate [Mass/Vol] 5.8 mg/dL Normal 4.0-8.1 [facility] Comment on above: Order Comment: Speci men Type: BLOOD SPECIMENOrdering Facility: [facility] Address: [address] [place] [address] Performed By: #### L IPNF, 00893-7, 71551-6, 3084-1 ####[facility] LABCLIA [id number] [place] [address] [place] Urinalysis complete panel (U )on 10-30-2024 Bacteria LM.HPF (Urine sed) [#/Area] Negative Normal Negative [facility] Comment on above: Order Comment: Speci men Type: URINE SPECIMENOrdering Facility: [facility] Address: [address] [place] [address] Performed By: #### 2 4356-8 ####[facility] LABIA [id number] [place] [address] [place] Bilirubin Ql (U) Negative Normal Negative [facility] Comment on above: Order Comment: Speci men Type: URINE SPECIMENOrdering Facility: [facility] Address: [address] [place] [address] Performed By: #### 2 4356-8 ####[facility] LABCLIA [id number] [place] [id number] [place] CALCIUM OXALATE CRYSTALS (UA) Few Abnormal None Seen [facility] Comment on above: Order Comment: Speci men Type: URINE SPECIMENOrdering Facility: [facility] Address: [address] [place] [address] Performed By: #### 2 4356-8 ####[facility] LABCLIA [id number] [address] [place] [address] [place] Clarity (Unsp spec) Cloudy Abnormal Clear [facility] Comment on above: Order Comment: Speci men Type: URINE SPECIMENOrdering Facility: [facility] Address: [address] [place] [address] Performed By: #### 2 4356-8 ####[facility] LABCLIA [id number] [address] [place] [address] [place] Color (U) Dark Yellow Abnormal Yellow [facility] Comment on above: Order Comment: Speci men Type: URINE SPECIMENOrdering Facility: [facility] Address: [address] [place] [address] Performed By: #### 2 4356-8 ####[facility] LABCLIA [id number] [address], [facility] [place] Epithelial cells LM.HPF (Urine sed) [#/Area] None Seen Normal [facility] Comment on above: Order Comment: Speci men Type: URINE SPECIMENOrdering Facility: [facility] Address: [address] [place] [address] Performed By: #### 2 4356-8 ####[facility] LABCLIA [id number] [address], [facility] [place] Glucose Test strip (U) [Mass/Vol] Negative Normal Negative [facility] Comment on above: Order Comment: Speci men Type: URINE SPECIMENOrdering Facility: [facility] Address: [address] [place] [address] Performed By: #### 2 4356-8 ####[facility] LABCLIA [id number] [place] [id number] [place] Hemoglobin Ql (U) Negative Normal Negative [facility] Comment on above: Order Comment: Speci men Type: URINE SPECIMENOrdering Facility: [facility] Address: [address] [place] [address] Performed By: #### 2 4356-8 ####[facility] LABCLIA [id number] [address] [place] [address] [place] Hyaline casts (Urine sed) [#/Area] 4-10 /LPF Abnormal 0 /LPF [facility] Comment on above: Order Comment: Speci men Type: URINE SPECIMENOrdering Facility: [facility] Address: [address] [place] [address] Performed By: #### 2 4356-8 ####[facility] LABCLIA [id number] [address], [facility] [place] Ketones Ql (U) Trace Abnormal Negative [facility] Comment on above: Order Comment: Speci men Type: URINE SPECIMENOrdering Facility: [facility] Address: [address] [place] [address] Performed By: #### 2 4356-8 ####[facility] LABCLIA [id number] [place] [address] [place] Leukocyte esterase Test strip Ql (U) 1+ Abnormal Negative [facility] Comment on above: Order Comment: Speci men Type: URINE SPECIMENOrdering Facility: [facility] Address: [address] [place] [address] Performed By: #### 2 4356-8 ####[facility] LABCLIA [id number] [place] [id number] [place] Nitrite Ql (U) Negative Normal Negative [facility] Comment on above: Order Comment: Speci men Type: URINE SPECIMENOrdering Facility: [facility] Address: [address] [place] [address] Performed By: #### 2 4356-8 ####[facility] LABCLIA [id number] [place] [id number] [place] pH (U) 5.5 [pH] Normal <8.5 [facility] Comment on above: Order Comment: Speci men Type: URINE SPECIMENOrdering Facility: [facility] Address: [address] [place] [address] Performed By: #### 2 4356-8 ####[facility] LABIA [id number] [address], [place] [address] [place] Protein (U) [Mass/Vol] 1+ Abnormal Negative [facility] Comment on above: Order Comment: Speci men Type: URINE SPECIMENOrdering Facility: [facility] Address: [address] [place] [address] Performed By: #### 2 4356-8 ####[facility] LABIA [id number] [address], [place] [address] [place] RBC LM.HPF (Urine sed) [#/Area] 6-10 /HPF Abnormal 0-2 /HPF [facility] Comment on above: Order Comment: Speci men Type: URINE SPECIMENOrdering Facility: [facility] Address: [address] [place] [address] Performed By: #### 2 4356-8 ####[facility] [id number] [address], [place] [address] [place] Specific gravity (U) [Rel density] 1.019 Normal 1.005-1.030 [facility] Comment on above: Order Comment: Speci men Type: URINE SPECIMENOrdering Facility: [facility] Address: [address] [place] [address] Performed By: #### 2 4356-8 ####[facility] LABIA [id number] [place] [id number] [place] Urobilinogen Ql (U) 1.0 EU/dL Normal 0.2-1.0 EU/dL [facility] Comment on above: Order Comment: Speci men Type: URINE SPECIMENOrdering Facility: [facility] Address: [address] [place] [address] Performed By: #### 2 4356-8 ####[facility] LABIA [id number] [place] [id number] [place] WBC LM.HPF (Urine sed) [#/Area] 6-10 /HPF Abnormal 0-5 /HPF [facility] Comment on above: Order Comment: Speci men Type: URINE SPECIMENOrdering Facility: [facility] Address: [address] [place] [address] Performed By: #### 2 4356-8 ####[facility] LABCLIA [id number] [place] [id number] [place] Vit B12 SerPl-ncon 025 Cobalamin (Vitamin B12) [Mass/Vol] 950 pg/mL Normal 232-1245 [facility] Comment on above: Order Comment: Speci men Type: BLOOD SPECIMENOrdering Facility: [facility] Address: [address] [place] [address] Performed By: #### 1 988-5, 4485-9, 4498-2, 2132-9 ####[facility] LABCLIA [id number] [place] [id number] [place] CNOVSPon 10-23-2024 CNOVSP Normal [facility] XR BONE SURVEY ROUTINEon XR BONE SURVEY ROUTINE Normal [facility] Calcium.ionized [Moles/Vol]o n 10-21-2024 Calcium.ionized (Bld) [Mass/Vol] 1.25 mmol/L Normal 1.08-1.30 [facility] Comment on above: Order Comment: Speci men Type: BLOOD SPECIMENOrdering Facility: [facility] Address: [address] [place] [address] Performed By: #### 1 995-0 ####[facility] LABCLIA [id number] [place] [id number] [place] Calcium.ionized adjusted to pH 7.4 (Bld) [Moles/Vol] 1.24 mmol/L Normal 1.08-1.30 [facility] Comment on above: Order Comment: Speci men Type: BLOOD SPECIMENOrdering Facility: [facility] Address: [address], [place] [address] Performed By: #### 1 995-0 ####[facility] LABCLIA [id number] [facility] CENTERMacey [place] [address] [place] Calculi, Urinary w / Photoon 10-21-2024 . Comment Normal . [facility] Comment on above: Result Comment: Perc entage (Represents the % composition) Performed By: #### L 0.0100 ####[facility] [address] [place], [address] 2,8 Dihydroxyad TNP Normal . [facility] Comment on above: Performed By: #### L 3649.0100 ####[facility] [address] [place], [address] AMM ACID URATE TNP Normal . [facility] Comment on above: Performed By: #### L 3649.0100 ####[facility] [address] [place], [address] Bilirubin Ql (U) TNP Normal . [facility] Comment on above: Performed By: #### L 3649.0100 ####[facility] [address] [place], [address] [place] BILIRUBINATE TNP Normal . [facility] Comment on above: Performed By: #### L 3649.0100 ####[facility] [address] [place], [address] [place] CARBONATE TNP Normal . [facility] Comment on above: Performed By: #### L 0.0100 ####[facility] [address] [place], [address] [place] HYDROG PHOS TNP Normal . [facility] Comment on above: Performed By: #### L 0.0100 ####[facility] [address] [place], [address] [place] OXAL DIHYDR TNP Normal . [facility] Comment on above: Performed By: #### L 3650.0100 ####[facility] [address] [place], [address] [place] OXAL MONOHYD 40 Normal . [facility] Comment on above: Performed By: #### L 3650.0100 ####[facility] [address] [place], [address] CA Palmitate TNP Normal . [facility] Comment on above: Performed By: #### L 3650.0100 ####[facility] [address] [place], [address] [place] PHOS (hydro) TNP Normal . [facility] Comment on above: Performed By: #### L 0.0100 ####[facility] [address] [place], [address] [place] PHOSPHATE TNP Normal . [facility] Comment on above: Performed By: #### L 0.0100 ####[facility] [address] [place], [address] [place] Stearate TNP Normal . [facility] Comment on above: Performed By: #### L 0.0100 ####[facility] [address] [place], [address] CELL MATERIAL TNP Normal . [facility] Comment on above: Performed By: #### L 3650.0100 ####[facility] [address] [place], [address] CHOLESTEROL TNP Normal . [facility] Comment on above: Performed By: #### L 0.0100 ####[facility] [address] [place], [address] Color (U) Brown Normal . [facility] Comment on above: Performed By: #### L 3650.0100 ####[facility] [address] [place], [address] COMMENT TNP Normal . [facility] Comment on above: Performed By: #### L 3650.0100 ####[facility] [address] [place], [address] COMMENT Comment Normal . [facility] Comment on above: Result Comment: Calc ulus received wet. Wet calculi must be dried beforeanalysis, which delays reporting of results. Leaving calculiwet (such as water, saline, blood, urine) may lead tochanges in composition. Performed By: #### L 0.0100 ####[facility] [address] [place], [address] Result Comment: Phys alizaan questions regarding Calculi Analysis [facility] at: [phone]. Result Comment: Calc tiffany report will follow via computer, mail or courierdelivery. CYSTINE TNP Normal . [facility] Comment on above: Performed By: #### L 3650.0100 ####[facility] [address] [place], [address] Disclaimer Comment Normal . [facility] Comment on above: Result Comment: This test was developed and its performance characteristicsdetermined by Jack Erwin. It has not been cleared or approvedby the Food and Drug Administration.Performed at: [address] [id number] Director: Jose Harris PhD, Phone: [phone] Performed By: #### L 3650.0100 ####[facility] [address] [place], [address] DRIED BLOOD TNP Normal . [facility] Comment on above: Performed By: #### L 3650.0100 ####[facility] [address] [place], [address] Drug/Metabolite TNP Normal . [facility] Comment on above: Performed By: #### L 3650.0100 ####[facility] [address] [place], [address] MAG EMMETT PHOS TNP Normal . [facility] Comment on above: Performed By: #### L 3650.0100 ####[facility] [address] [place], [address] NA ACID URATE TNP Normal . [facility] Comment on above: Performed By: #### L 3650.0100 ####[facility] [address] [place], [address] NEWBERYITE TNP Normal . [facility] Comment on above: Performed By: #### L 3650.0100 ####[facility] [address] [place], [address] Other Component TNP Normal . [facility] Comment on above: Performed By: #### L 3650.0100 ####[facility] [address] [place], [address] PHOTO Comment Normal . [facility] Comment on above: Result Comment: Phot ograph will follow under a separate cover Performed By: #### L 3650.0100 ####[facility] [address] [place], [address] SIZE 7x5 Normal . [facility] Comment on above: Result Comment: Mult iple pieces received. Dimensions of the largest piecereported. Performed By: #### L 3650.0100 ####[facility] [address] [place], [address] SOURCE Comment Normal . [facility] Comment on above: Result Comment: Not provided Performed By: #### L 3650.0100 ####[facility] [address] [place], [address] TRIAMTERENE TNP Normal . [facility] Comment on above: Performed By: #### L 3650.0100 ####[facility] [address] [place], [address] URIC ACID 60 Normal . [facility] Comment on above: Performed By: #### L 3650.0100 ####[facility] [address] [place], [address] URIC ACID DIHYD TNP Normal . [facility] Comment on above: Performed By: #### L 3650.0100 ####[facility] [address] [place], [address] WEIGHT 88 mg Normal . [facility] Comment on above: Performed By: #### L 3650.0100 ####[facility] [address] [place], [address] XANTHINE TNP Normal . [facility] Comment on above: Performed By: #### L 3650.0100 ####[facility] [address] [place], [address] MONOCLONAL PROT 24 UR W/INTE RPon 10-21-2024 STAFF REVIEW (PA) Reviewed by Haydee Phelps MD Normal [facility] Comment on above: Order Comment: Speci men Type: URINE SPECIMENOrdering Facility: [facility] Address: [address] [place] [address] Performed By: #### U 24MPA ####[facility] LABCLIA [id number] [place] [address] [place] UMPA RESULT No M protein is identified. Normal No M protein is identified. [facility] Comment on above: Order Comment: Speci men Type: URINE SPECIMENOrdering Facility: [facility] Address: [address] [place] [address] Performed By: #### U 24MPA ####[facility] LABCLIA [id number] [place] [address] [place] PROT ELEC UR 24HR W/M SPIKE (P)on 10-21-2024 Albumin/Globulin Elph (24H U) [Mass ratio] 44.50 % Normal [facility] Comment on above: Order Comment: Speci men Type: URINE SPECIMENOrdering Facility: [facility] Address: [address] [place] [address] Performed By: #### L [id number] ####[facility] LABCLIA [id number] [place] [address] [place] Alpha 1 globulin Elph (24H U) [Mass fraction] 5.50 % Normal [facility] Comment on above: Order Comment: Speci men Type: URINE SPECIMENOrdering Facility: [facility] Address: [address] [place] [address] Performed By: #### L [id number] ####[facility] LABIA [id number] [address] [place] Alpha 2 globulin Elph (24H U) [Mass fraction] 17.65 % Normal [facility] Comment on above: Order Comment: Speci men Type: URINE SPECIMENOrdering Facility: [facility] Address: [address] [place] [address] Performed By: #### L [id number] ####[facility] LABIA [id number] [place] [address] [place] Beta globulin Elph (24H U) [Mass fraction] 19.74 % Normal [facility] Comment on above: Order Comment: Speci men Type: URINE SPECIMENOrdering Facility: [facility] Address: [address] [place] [address] Performed By: #### L [id number] ####[facility] LABCLIA [id number] [place] [address] [place] Gamma globulin Elph (24H U) [Mass fraction] 12.62 % Normal [facility] Comment on above: Order Comment: Speci men Type: URINE SPECIMENOrdering Facility: [facility] Address: [address] [place] [address] Performed By: #### L [id number] ####[facility] [id number] [place] [address] [place] Protein Fractions Elph Kamaljit (24H U) [Interp] No definitive M protein is identified on protein electrophoresis. Normal No definitive M protein is identified on protein electrophore sis. [facility] Comment on above: Order Comment: Speci men Type: URINE SPECIMENOrdering Facility: [facility] Address: [address] [place] [address] Performed By: #### L [id number] ####[facility] [id number] [place] [address] [place] Protein.monoclonal Elph (24H U) [Mass/Time] 0.00 g/24hr Normal [facility] Comment on above: Order Comment: Speci men Type: URINE SPECIMENOrdering Facility: [facility] Address: [address] [place] [address] Performed By: #### L [id number] ####[facility] [id number] [place] [address] [place] STAFF REVIEW ([id number]) Reviewed by Haydee Phelps MD Normal [facility] Comment on above: Order Comment: Speci men Type: URINE SPECIMENOrdering Facility: [facility] Address: [address] [place] [address] Performed By: #### L [id number] ####[facility] [id number] [place] [address] [place] Prot 24h Ur-mRateon 10-22-19 25 Protein (24H U) [Mass/Time] 0.11 g/24 Hr Normal <0.15 [facility] Comment on above: Order Comment: Speci men Type: URINE SPECIMENOrdering Facility: [facility] Address: [address] [place] [address] Result Comment: Adul t Proteinuria Categories:<0.15 g/24 hours is considered normal to mildly increased0.15 - 0.50 g/24 hours is considered moderately increased>0.50 g/24 hours is considered severely increasedKDIGO. (2013). KDIGO 2012 Clinical Practice Guideline for the Evaluation and Management of Chronic Kidney Disease. Official Journal of the International Society of Nephrology, 3(1), 1-150. Performed By: #### 2 889-4 ####[facility] LABIA [id number] [address] [id number] [place] [address] [place] Protein (24H U) [Mass/Time]o n 10-21-2024 PERIOD (HRS) 24 hr Normal [facility] Comment on above: Order Comment: Speci men Type: URINE SPECIMENOrdering Facility: [facility] Address: [address] [place] [address] Performed By: #### 2 889-4 ####[facility] [id number] [address] [id number] [place] [address] [place] Specimen volume (24H U) 2.65 L Normal [facility] Comment on above: Order Comment: Speci men Type: URINE SPECIMENOrdering Facility: [facility] Address: [address] [place] [address] Performed By: #### 2 889-4 ####[facility] [id number] [address] [id number] [place] [address] [place] Surgical pathology reportOrd ered By: Payton Norton on 10-15-2024 Surgical pathology study [facility] Ammonium urate crystals Infr ared spectroscopy Ql (Stone)Ordered By: Geovani Barron on 10-11-2024 Stone Ammonium Acid Urate [facility] Comment on above: Test not performed Ammonium urate crystals dete ction in stone by infrared spectroscopyOrdered By: Geovani Barron on 10-11-2024 Ammonium urate crystals Infrared spectroscopy Ql (Stone) [facility] Comment on above: Test not performed Blood.dried (Stone) [Mass fr action]Ordered By: Geovani Barron on 10-11-2024 Stone Dried Blood [facility] Comment on above: Test not performed Calcium hydrogen phosphate c rystals Infrared spectroscopy Ql (Stone)Ordered By: Geovani Barron on 10-11-2024 Stone Calcium Hydrogen Phosphate [facility] Comment on above: Test not performed Calcium hydrogen phosphate c rystals detection in stone by infrared spectroscopyOrdered By: Geovani Barron on 10-11-2024 Calcium hydrogen phosphate crystals Infrared spectroscopy Ql (Stone) [facility] Comment on above: Test not performed Calcium oxalate dihydrate cr ystals Infrared spectroscopy Ql (Stone)Ordered By: Geovani Barron on 10-11-2024 Stone Calcium Oxalate Dihydrate [facility] Comment on above: Test not performed Calcium oxalate dihydrate cr ystals detection in stone by infrared spectroscopyOrdered By: Geovani Barron on 10-11-2024 Calcium oxalate dihydrate crystals Infrared spectroscopy Ql (Stone) [facility] Comment on above: Test not performed Cellular material Est (Stone ) [Mass/Mass]Ordered By: Geovani Barron on 10-11-2024 Stone Cellular Material [facility] Comment on above: Test not performed Cholesterol measurementOrder ed By: Geovani Barron on 10-11-2024 Stone Cholesterol [facility] Comment on above: Test not performed Color (Unsp spec)Ordered By: Geovani Barron on 10-11-2024 Stone Color Brown . [facility] Color of specimen determinat ionOrdered By: Geovani Barron on 10-11-2024 Color (Unsp spec) Brown . [facility] Cystine (Unsp spec) [Moles/V ol]Ordered By: Geovani Barron on 10-11-2024 Stone Cystine [facility] Comment on above: Test not performed Cystine measurementOrdered B y: Geovani Barron on 10-11-2024 Cystine (Unsp spec) [Moles/Vol] [facility] Comment on above: Test not performed Determination of volume of c alculusOrdered By: Geovani Barron on 10-11-2024 Size (Stone) [Entitic vol] 7x5 mm . [facility] Comment on above: Multiple pieces rece ived. Dimensions of the largest piecereported. Estimation of cellular mater ial in calculus (mass/mass)Ordered By: Geovani Barron on 10-11-2024 Cellular material Est (Stone) [Mass/Mass] [facility] Comment on above: Test not performed External camera medical phot ographyOrdered By: Geovani Barron on 10-11-2024 Urinary Stone Photo Note Comment . [facility] Comment on above: Photograph will foll ow under a separate cover Laboratory - Miscellaneous t estsOrdered By: Geovani Barron on 10-11-2024 Service comment (Unsp spec) [Interp] [facility] Comment on above: Test not performed Service comment (Unsp spec) [Interp] Comment . [facility] Comment on above: Calculus received we t. Wet calculi must be dried beforeanalysis, which delays reporting of results. Leaving calculiwet (such as water, saline, blood, urine) may lead tochanges in composition. Physician questions regarding Calculi Analysis contactCoffey County Hospitalco at: [phone]. Calculi report will follow via computer, mail or courierdelivery. Measurement of proportion of calculus composed of dried blood (mass/mass)Ordered By: Geovani Barron on 10-11-2024 Blood.dried (Stone) [Mass fraction] [facility] Comment on above: Test not performed Measurement of weight of sto neOrdered By: Geovani Barron on 10-11-2024 Weight (Stone) 88 mg . [facility] Newberyite crystals Infrared spectroscopy Ql (Stone)Ordered By: Geovani Barron on 10-11-2024 Stone Newberyite [facility] Comment on above: Test not performed Newberyite crystals detectio n in stone by infrared spectroscopyOrdered By: Geovani Barron on 10-11-2024 Newberyite crystals Infrared spectroscopy Ql (Stone) [facility] Comment on above: Test not performed No Panel InformationOrdered By: Geovani Barron on 10-11-2024 Stone 2,8 Dihydroxyadenine [facility] Comment on above: Test not performed Stone Analysis (T) Comment . [facility] Comment on above: Percentage (Represen ts the % composition) Stone Bilirubin [facility] Comment on above: Test not performed Stone Calcium Bilirubinate [facility] Comment on above: Test not performed Stone Calcium Carbonate [facility] Comment on above: Test not performed Stone Calcium Hydroxyl-Phosphate [facility] Comment on above: Test not performed Stone Calcium Oxalate Monohydrate 40 % . [facility] Stone Calcium Palmitate [facility] Comment on above: Test not performed Stone Calcium Phosphate Carbonate [facility] Comment on above: Test not performed Stone Calcium Stearate [facility] Comment on above: Test not performed Stone Drug or Metabolite [facility] Comment on above: Test not performed Stone Other Component(s) [facility] Comment on above: Test not performed Stone Xanthine [facility] Comment on above: Test not performed Origin Nom (Stone)Ordered By : Geovani Barron on 10-11-2024 Stone Source Comment . [facility] Comment on above: Not provided Origin of StoneOrdered By: Irma Barron on 10-11-2024 Origin Nom (Stone) Comment . [facility] Comment on above: Not provided Service comment (Unsp spec) [Interp]Ordered By: Geovani Barron on 10-11-2024 Stone Comment [facility] Comment on above: Test not performed Stone Comment 2 Comment . [facility] Comment on above: Calculus received we t. Wet calculi must be dried beforeanalysis, which delays reporting of results. Leaving calculiwet (such as water, saline, blood, urine) may lead tochanges in composition. Stone Comment 3 Comment . [facility] Comment on above: Physician questions regarding Calculi Analysis contactCoffey County Hospitalcorp at: [phone]. Stone Comment 4 Comment . [facility] Comment on above: Calculi report will follow via computer, mail or courierdelivery. Size (Stone) [Entitic vol]Or dered By: Geovani Barron on 10-11-2024 Stone Size 7x5 mm . [facility] Comment on above: Multiple pieces rece ived. Dimensions of the largest piecereported. Sodium urate crystals Infrar ed spectroscopy Ql (Stone)Ordered By: Geovani Barron on 10-11-2024 Stone Sodium Acid Urate [facility] Comment on above: Test not performed Sodium urate crystals detect ion in stone by infrared spectroscopyOrdered By: Geovani Barron on 10-11-2024 Sodium urate crystals Infrared spectroscopy Ql (Stone) [facility] Comment on above: Test not performed Surgery Specimen Level Ion 0 10-11-2024 Surgery Specimen Level I Normal [facility] Comment on above: Performed By: #### P VIOLA ####[facility] [address] [place], [place], [address] Triamterene crystals Infrare d spectroscopy Ql (Stone)Ordered By: Geovani Barron on 10-11-2024 Stone Triamterene [facility] Comment on above: Test not performed Triamterene crystals detecti on in stone by infrared spectroscopyOrdered By: Geovani Barron on 10-11-2024 Triamterene crystals Infrared spectroscopy Ql (Stone) [facility] Comment on above: Test not performed Triple phosphate crystals In frared spectroscopy Ql (Stone)Ordered By: Geoavni Barron on 10-11-2024 Stone Magnesium Ammonium Phosphate [facility] Comment on above: Test not performed Triple phosphate crystals de tection in stone by infrared spectroscopyOrdered By: Geovani Barron on 10-11-2024 Triple phosphate crystals Infrared spectroscopy Ql (Stone) [facility] Comment on above: Test not performed Urate crystals Infrared spec troscopy Ql (Stone)Ordered By: Geovani Barron on 10-11-2024 Stone Uric Acid 60 % . [facility] Urate dihydrate crystals Inf rared spectroscopy Ql (Stone)Ordered By: Geovani Barron on 10-11-2024 Stone Uric Acid Dihydrate [facility] Comment on above: Test not performed Uric acid crystals detection in stone by infrared spectroscopyOrdered By: Geovani Barron on 10-11-2024 Urate crystals Infrared spectroscopy Ql (Stone) 60 % . [facility] Uric acid dihydrate crystals detection in stone by infrared spectroscopyOrdered By: Geovani Barron on 10-11-2024 Urate dihydrate crystals Infrared spectroscopy Ql (Stone) TNP [facility] Comment on above: Test not performed Weight (Stone)Ordered By: Angella Barron on 10-11-2024 Stone Weight 88 mg . [facility] CNPNon 09-27-2024 CNPN Normal [facility] CBC W Auto Differential pane l (Bld)on 09-25-2024 Basophils (Bld) [#/Vol] 0.08 10*3/uL [facility] Basophils/100 WBC (Bld) 0.9 % [facility] Differential cell count method Nom (Bld) Auto [facility] Eosinophils (Bld) [#/Vol] 1.07 10*3/uL High [facility] Eosinophils/100 WBC (Bld) 12.4 % [facility] Erythrocyte distribution width (RBC) [Ratio] 13.5 % 11.5 - 15.0 % [facility] Hematocrit (Bld) [Volume fraction] 43.8 % 39.0 - 51.0 % [facility] Hemoglobin (Bld) [Mass/Vol] 15 g/dL 13.0 - 17.0 g/dL [facility] Immature granulocytes (Bld) [#/Vol] 0.03 10*3/uL [facility] Immature granulocytes/100 WBC (Bld) 0.3 % [facility] Interpretation and review of laboratory results Abnormal [facility] Lymphocytes (Bld) [#/Vol] 0.78 10*3/uL Low [facility] Lymphocytes/100 WBC (Bld) 9.1 % [facility] MCH (RBC) [Entitic mass] 34.4 pg High 26.0 - 34.0 pg [facility] MCHC (RBC) [Mass/Vol] 34.2 g/dL 30.5 - 36.0 g/dL [facility] MCV (RBC) [Entitic vol] 100.5 fL High 80.0 - 100.0 fL [facility] Monocytes (Bld) [#/Vol] 0.82 10*3/uL [facility] Monocytes/100 WBC (Bld) 9.5 % [facility] Neutrophils (Bld) [#/Vol] 5.82 10*3/uL [facility] Neutrophils/100 WBC (Bld) 67.8 % [facility] Nucleated RBC (Bld) [#/Vol] NINF [facility] Nucleated RBC/100 WBC (Bld) [Ratio] 0 % /100 WBC [facility] Platelet mean volume (Bld) [Entitic vol] 10.1 fL 9.0 - 12.7 fL [facility] Platelets (Bld) [#/Vol] 245 10*3/uL [facility] RBC (Bld) [#/Vol] 4.36 10*6/uL 4.20 - 6.0 0 m/uL [facility] WBC (Bld) [#/Vol] 8.6 10*3/uL [facility] Basophils (Bld) [#/Vol] 0.08 10*3/uL Normal <0.11 [facility] Comment on above: Order Comment: Speci men Type: BLOOD SPECIMENOrdering Facility: [facility] Address: [address] [place] [address] Performed By: #### 5 7021-8 ####[facility] [id number] [place] [address] [place] Basophils/100 WBC (Bld) 0.9 % Normal [facility] Comment on above: Order Comment: Speci men Type: BLOOD SPECIMENOrdering Facility: [facility] Address: [address] [place] [address] Performed By: #### 5 7021-8 ####[facility] [id number] [place] [address] [place] Differential cell count method Nom (Bld) Auto Normal [facility] Comment on above: Order Comment: Speci men Type: BLOOD SPECIMENOrdering Facility: [facility] Address: [address] [place] [address] Performed By: #### 5 7021-8 ####[facility] [id number] [place] [address] [place] Eosinophils (Bld) [#/Vol] 1.07 10*3/uL High <0.46 [facility] Comment on above: Order Comment: Speci men Type: BLOOD SPECIMENOrdering Facility: [facility] Address: [address] [place] [address] Performed By: #### 5 7021-8 ####[facility] [id number] [place] [address] [place] Eosinophils/100 WBC (Bld) 12.4 % Normal [facility] Comment on above: Order Comment: Speci men Type: BLOOD SPECIMENOrdering Facility: [facility] Address: [address] [place] [address] Performed By: #### 5 7021-8 ####[facility]ITALNCLI [id number] [place] [address] [place] Erythrocyte distribution width (RBC) [Ratio] 13.5 % Normal 11.5-15.0 [facility] Comment on above: Order Comment: Speci men Type: BLOOD SPECIMENOrdering Facility: [facility] Address: [address] [place] [address] Performed By: #### 5 7021-8 ####[facility]ITALNCLI [id number] [place] [address] [place] Hematocrit (Bld) [Volume fraction] 43.8 % Normal 39.0-51.0 [facility] Comment on above: Order Comment: Speci men Type: BLOOD SPECIMENOrdering Facility: [facility] Address: [address] [place] [address] Performed By: #### 5 7021-8 ####[facility]ITALNCLIA [id number] [place] [address] [place] Hemoglobin (Bld) [Mass/Vol] 15.0 g/dL Normal 13.0-17.0 [facility] Comment on above: Order Comment: Speci men Type: BLOOD SPECIMENOrdering Facility: [facility] Address: [address] [place] [address] Performed By: #### 5 7021-8 ####[facility] GUSTAVOBOOGIE [id number] [place] [address] [place] Immature granulocytes (Bld) [#/Vol] 0.03 10*3/uL Normal <0.10 [facility] Comment on above: Order Comment: Speci men Type: BLOOD SPECIMENOrdering Facility: [facility] Address: [address] [place] [address] Performed By: #### 5 7021-8 ####[facility] [id number] [place] [address] [place] Immature granulocytes/100 WBC (Bld) 0.3 % Normal [facility] Comment on above: Order Comment: Speci men Type: BLOOD SPECIMENOrdering Facility: [facility] Address: [address] [place] [address] Performed By: #### 5 7021-8 ####[facility] [id number] [place] [address] [place] Lymphocytes (Bld) [#/Vol] 0.78 10*3/uL Low 1.00-4.00 [facility] Comment on above: Order Comment: Speci men Type: BLOOD SPECIMENOrdering Facility: [facility] Address: [address] [place] [address] Performed By: #### 5 7021-8 ####[facility] [id number] [place] [address] [place] Lymphocytes/100 WBC (Bld) 9.1 % Normal [facility] Comment on above: Order Comment: Speci men Type: BLOOD SPECIMENOrdering Facility: [facility] Address: [address] [place] [address] Performed By: #### 5 7021-8 ####[facility]ITALNCLIA [id number] [place] [address] [place] MCH (RBC) [Entitic mass] 34.4 pg High 26.0-34.0 [facility] Comment on above: Order Comment: Speci men Type: BLOOD SPECIMENOrdering Facility: [facility] Address: [address] [place] [address] Performed By: #### 5 7021-8 ####[facility] [id number] [place] [address] [place] MCHC (RBC) [Mass/Vol] 34.2 g/dL Normal 30.5-36.0 [facility] Comment on above: Order Comment: Speci men Type: BLOOD SPECIMENOrdering Facility: [facility] Address: [address] [place] [address] Performed By: #### 5 7021-8 ####[facility] [id number] [place] [address] [place] MCV (RBC) [Entitic vol] 100.5 fL High 80.0-100.0 [facility] Comment on above: Order Comment: Speci men Type: BLOOD SPECIMENOrdering Facility: [facility] Address: [address] [place] [address] Performed By: #### 5 7021-8 ####[facility] [id number] [place] [address] [place] Monocytes (Bld) [#/Vol] 0.82 10*3/uL Normal <0.87 [facility] Comment on above: Order Comment: Speci men Type: BLOOD SPECIMENOrdering Facility: [facility] Address: [address] [place] [address] Performed By: #### 5 7021-8 ####[facility] [id number] [place] [address] [place] Monocytes/100 WBC (Bld) 9.5 % Normal [facility] Comment on above: Order Comment: Speci men Type: BLOOD SPECIMENOrdering Facility: [facility] Address: [address] [place] [address] Performed By: #### 5 7021-8 ####[facility] [id number] [place] [address] [place] Neutrophils (Bld) [#/Vol] 5.82 10*3/uL Normal 1.45-7.50 [facility] Comment on above: Order Comment: Speci men Type: BLOOD SPECIMENOrdering Facility: [facility] Address: [address] [place] [address] Performed By: #### 5 7021-8 ####[facility] HOSPITALNCJESUS [id number] [place] [address] [place] Neutrophils/100 WBC (Bld) 67.8 % Normal [facility] Comment on above: Order Comment: Speci men Type: BLOOD SPECIMENOrdering Facility: [facility] Address: [address] [place] [address] Performed By: #### 5 7021-8 ####[facility] HOSPITALCELSOA [id number] [place] [address] [place] Nucleated RBC (Bld) [#/Vol] 10*3/uL Normal <0.01 [facility] Comment on above: Order Comment: Speci men Type: BLOOD SPECIMENOrdering Facility: [facility] Address: [address] [place] [address] Performed By: #### 5 7021-8 ####[facility]ITALNCLIA [id number] [place] [address] [place] Nucleated RBC/100 WBC (Bld) [Ratio] 0.0 /100 WBC Normal [facility] Comment on above: Order Comment: Speci men Type: BLOOD SPECIMENOrdering Facility: [facility] Address: [address] [place] [address] Performed By: #### 5 7021-8 ####[facility] SHAYYNCJESUS [id number] [place] [address] [place] Platelet mean volume (Bld) [Entitic vol] 10.1 fL Normal 9.0-12.7 [facility] Comment on above: Order Comment: Speci men Type: BLOOD SPECIMENOrdering Facility: [facility] Address: [address] [place] [address] Performed By: #### 5 7021-8 ####[facility] HOSPITALNCAbdoulaye [id number] [place] [address] [place] Platelets (Bld) [#/Vol] 245 10*3/uL Normal 150-400 [facility] Comment on above: Order Comment: Speci men Type: BLOOD SPECIMENOrdering Facility: [facility] Address: [address] [place] [address] Performed By: #### 5 7021-8 ####[facility] HOSPITALNCA [id number] [place] [address] [place] RBC (Bld) [#/Vol] 4.36 10*6/uL Normal 4.20-6.00 [facility] Comment on above: Order Comment: Speci men Type: BLOOD SPECIMENOrdering Facility: [facility] Address: [address] [place] [address] Performed By: #### 5 7021-8 ####[facility] HOSPITALNCLIA [id number] [place] [address] [place] WBC (Bld) [#/Vol] 8.60 10*3/uL Normal 3.70-11.00 [facility] Comment on above: Order Comment: Speci men Type: BLOOD SPECIMENOrdering Facility: [facility] Address: [address] [place] [address] [place] [id number] Performed By: #### 5 7021-8 ####[facility] YAQUELIN [facility]PITALNCBEAV[facility] [id number] [place] [id number] [place] CNOVSPon 09-25-2024 CNOVSP Normal [facility] COPPER BLOODon 09-25-2024 Copper [Mass/Vol] 127 ug/dL Normal 70-140 [facility] Comment on above: Order Comment: Speci men Type: BLOOD SPECIMENOrdering Facility: [facility] Address: [address] [place] [id number] Result Comment: This test was developed, and its performance characteristics determined by the [facility] Department of Pathology and Laboratory Medicine. It has not been cleared or approved by the FDA. The [facility] Department of Pathology and Laboratory Medicine is regulated under CLIA as qualified to perform high-complexity testing. This test is used for clinical purposes. It should not be regarded as investigational or for research. Performed By: #### C OPPER ####[facility] LABCLIA [id number] [place] [address] [place] Comprehensive metabolic 2000 panelOrdered By: Blanca Odonnell on 09-25-2024 Albumin [Mass/Vol] 4.6 g/dL 3.9 - 4.9 g/dL [facility] ALP [Catalytic activity/Vol] 162 U/L High 38 - 113 U/L [facility] ALT [Catalytic activity/Vol] 36 U/L 10 - 54 U/L [facility] Anion gap [Moles/Vol] 13 mmol/L 8 - 15 mmol/L [facility] AST [Catalytic activity/Vol] 55 U/L High 14 - 40 U/L [facility] Bilirubin [Mass/Vol] 0.7 mg/dL 0.2 - 1 .3 mg/dL [facility] Calcium [Mass/Vol] 10.3 mg/dL High 8.5 - 10. 2 mg/dL [facility] Chloride [Moles/Vol] 101 mmol/L 98 - 10 7 mmol/L [facility] CO2 [Moles/Vol] 21 mmol/L Low 22 - 30 mmol/L [facility] Creatinine [Mass/Vol] 0.67 mg/dL Low 0.73 - 1.22 mg/dL [facility] GFR/1.73 sq M.predicted among non-blacks MDRD (S/P/Bld) [Vol rate/Area] 99 mL/min/{1.73_m2} - PINF [facility] Comment on above: Estimated Glomerular Filtration [...] 101 mg/dL High 74 - 99 mg/dL [facility] Comment on above: The [place] Diabete s Association (ADA) provides guidance for [...] Standards of Medical Care in Diabetes 2016, [place] Diabetes Association. Diabetes Care. 2016.39(Suppl 1). Interpretation and review of laboratory results Abnormal [facility] Potassium [Moles/Vol] 4.7 mmol/L 3.7 - 5.1 mmol/L [facility] Protein [Mass/Vol] 8.2 g/dL High 6.3 - 8.0 g/dL [facility] Sodium [Moles/Vol] 135 mmol/L Low 136 - 144 mmol/L [facility] Urea nitrogen [Mass/Vol] 14 mg/dL 9 - 24 mg/dL [facility] Comprehensive metabolic 2000 panelon 09-25-2024 Albumin [Mass/Vol] 4.6 g/dL Normal 3.9-4.9 [facility] Comment on above: Order Comment: Speci men Type: BLOOD SPECIMENOrdering Facility: [facility] Address: [address] [place] [address] Performed By: #### 2 4323-8 ####[facility] YAQUELIN MILLTOWNCLIA [id number] [place] [address] [place] ALP [Catalytic activity/Vol] 162 U/L High 38-113 [facility] Comment on above: Order Comment: Speci men Type: BLOOD SPECIMENOrdering Facility: [facility] Address: [address] [place] [address] Performed By: #### 2 4323-8 ####[facility] MILLTOWNCLIA [id number] [place] [address] [place] ALT [Catalytic activity/Vol] 36 U/L Normal 10-54 [facility] Comment on above: Order Comment: Speci men Type: BLOOD SPECIMENOrdering Facility: [facility] Address: [address] [place] [address] Performed By: #### 2 4323-8 ####[facility]ITALWNCLIA [id number] [place] [address] [place] Anion gap [Moles/Vol] 13 mmol/L Normal 8-15 [facility] Comment on above: Order Comment: Speci men Type: BLOOD SPECIMENOrdering Facility: [facility] Address: [address] [place] [address] Performed By: #### 2 4323-8 ####[facility] MILLWNCLIA [id number] [place] [address] [place] AST [Catalytic activity/Vol] 55 U/L High 14-40 [facility] Comment on above: Order Comment: Speci men Type: BLOOD SPECIMENOrdering Facility: [facility] Address: [address] [place] [address] Performed By: #### 2 4323-8 ####[facility] MILLTOWNCLIA [id number] [place] [address] [place] Bilirubin [Mass/Vol] 0.7 mg/dL Normal 0.2-1.3 [facility] Comment on above: Order Comment: Speci men Type: BLOOD SPECIMENOrdering Facility: [facility] Address: [address] [place] [address] Performed By: #### 2 4323-8 ####[facility] YAQUELIN MILLWNCLIA [id number] [place] [address] [place] Calcium [Mass/Vol] 10.3 mg/dL High 8.5-10.2 [facility] Comment on above: Order Comment: Speci men Type: BLOOD SPECIMENOrdering Facility: [facility] Address: [address] [place] [address] Performed By: #### 2 4323-8 ####[facility]ITALWNCLIA [id number] [place] [address] [place] Chloride [Moles/Vol] 101 mmol/L Normal 98-107 [facility] Comment on above: Order Comment: Speci men Type: BLOOD SPECIMENOrdering Facility: [facility] Address: [address] [place] [address] Performed By: #### 2 4323-8 ####[facility]ITALNCLIA [id number] [place] [address] [place] CO2 [Moles/Vol] 21 mmol/L Low 22-30 [facility] Comment on above: Order Comment: Speci men Type: BLOOD SPECIMENOrdering Facility: [facility] Address: [address] [place], [place] [address] Performed By: #### 2 4323-8 ####[facility] MILLWNCLIA [id number] [place] [address] [place] Creatinine [Mass/Vol] 0.67 mg/dL Low 0.73-1.22 [facility] Comment on above: Order Comment: Speci men Type: BLOOD SPECIMENOrdering Facility: [facility] Address: [address] [place] [address] Performed By: #### 2 4323-8 ####[facility] [id number] [place] [address] [place] Creatinine and Glomerular filtration rate.predicted panel (S/P/Bld) 99 mL/min/1.73m??? Normal >=60 [facility] Comment on above: Order Comment: Medina peck Type: BLOOD SPECIMENOrdering Facility: [facility] Address: [address] [place] [address] Result Comment: Micaela mated Glomerular Filtration Rate [...] accurately reflect actual GFR. Performed By: #### 2 4323-8 ####[facility] [id number] [place] [address] [place] Glucose [Mass/Vol] 101 mg/dL High 74-99 [facility] Comment on above: Order Comment: Medina peck Type: BLOOD SPECIMENOrdering Facility: [facility] Address: [address] [place] [address] Result Comment: The [place] Diabetes Association (ADA) provides guidance for cutoff values for fasting glucose and random glucose. The ADA defines fasting as no caloric intake for at least 8 hours. Fasting plasma glucose results between 100 to 125 mg/dL indicate increased risk for diabetes (prediabetes).Fasting plasma glucose results greater than or equal to 126 mg/dL meet the criteria for diagnosis of diabetes. In the absence of unequivocal hyperglycemia, results should be confirmed by repeat testing. In a patient with classic symptoms of hyperglycemia or hyperglycemic crisis, random plasma glucose results greater than or equal to 200 mg/dL meet the criteria for diagnosis of diabetes.Reference: Standards of Medical Care in Diabetes 2016, [place] Diabetes Association. Diabetes Care. 2016.39(Suppl 1). Performed By: #### 2 4323-8 ####[facility] YAQUELIN MILLTOWNCLIA [id number] [place] [address] [place] Potassium [Moles/Vol] 4.7 mmol/L Normal 3.7-5.1 [facility] Comment on above: Order Comment: Speci men Type: BLOOD SPECIMENOrdering Facility: [facility] Address: [address] [place] [address] Performed By: #### 2 4323-8 ####[facility] MILLWMICHELLELIA [id number] [place] [address] [place] Protein [Mass/Vol] 8.2 g/dL High 6.3-8.0 [facility] Comment on above: Order Comment: Speci men Type: BLOOD SPECIMENOrdering Facility: [facility] Address: [address] [place] [address] Performed By: #### 2 4323-8 ####[facility] HOSPITALMICHELLELIA [id number] [place] [address] [place] Sodium [Moles/Vol] 135 mmol/L Low 136-144 [facility] Comment on above: Order Comment: Speci men Type: BLOOD SPECIMENOrdering Facility: [facility] Address: [address] [place] [address] Performed By: #### 2 4323-8 ####[facility] MILLWNCLIA [id number] [place] [address] [place] Urea nitrogen [Mass/Vol] 14 mg/dL Normal 9-24 [facility] Comment on above: Order Comment: Speci men Type: BLOOD SPECIMENOrdering Facility: [facility] Address: [address] [place] [address] Performed By: #### 2 4323-8 ####[facility]ITALWNCLIA [id number] [place] [address] [place] Folate SerPl-mCncon 09-26-19 25 Folate [Mass/Vol] 13.3 ng/mL Normal >4.7 [facility] Comment on above: Order Comment: Speci men Type: BLOOD SPECIMENOrdering Facility: [facility] Address: [address] [place] [address] Performed By: #### 2 132-9, 2284-8, 2885-2 ####[facility] LABORATORYCLIA [id number] [place] [id number] [facility] IMMUNOFIXATION SCREEN, SERUM on 09-25-2024 INTERPRETATION (MPA) Atypical restricted bands are present in the IgG and kappa regions. Consistent with IgG kappa monoclonal gammopathy. Normal [facility] Comment on above: Order Comment: Speci men Type: BLOOD SPECIMENOrdering Facility: [facility] Address: [address] [place] [address] Performed By: #### I FES ####[facility] LABCLIA [id number] [address] MPA RESULT M protein is present. Abnormal No M p rotein is identified. [facility] Comment on above: Order Comment: Speci men Type: BLOOD SPECIMENOrdering Facility: [facility] Address: [address] [place] [address] Performed By: #### I FES ####[facility] LABCLIA [id number] [place] [id number] [facility] STAFF REVIEW (MPA) Reviewed by Derrick Rawls MD, Ph.D ([id number]) Normal [facility] Comment on above: Order Comment: Speci men Type: BLOOD SPECIMENOrdering Facility: [facility] Address: [address] [place] [address] Performed By: #### I FESC ####[facility] LABCLIA [id number] [place] [id number] [place] IMMUNOGLOBULINS,IGG,IGA,IGMo n 09-25-2024 IgA [Mass/Vol] 361 mg/dL Normal 70-400 [facility] Comment on above: Order Comment: Speci men Type: BLOOD SPECIMENOrdering Facility: [facility] Address: [address] [place] [address] Performed By: #### S ERIMM ####[facility] LABCLIA [id number] [place] [address] [place] IgG [Mass/Vol] 1487 mg/dL Normal 700-1600 [facility] Comment on above: Order Comment: Speci men Type: BLOOD SPECIMENOrdering Facility: [facility] Address: [address] [place] [address] Performed By: #### S ERIMM ####[facility] LABCLIA [id number] [place] [address] [place] IgM [Mass/Vol] 46 mg/dL Normal 40-230 [facility] Comment on above: Order Comment: Speci men Type: BLOOD SPECIMENOrdering Facility: [facility] Address: [address] [place] [address] Performed By: #### S ERIMM ####[facility] LABCLIA [id number] [place] [address] [place] KAPPA/NEUMANN,FREE,SERon 2024 Immunoglobulin light chains.kappa.free (S) [Mass/Vol] 35.1 mg/L High 3.3-19.4 [facility] Comment on above: Order Comment: Speci men Type: BLOOD SPECIMENOrdering Facility: [facility] Address: [address] [place] [address] Result Comment: Rare ly, increased serum free light chains levels may not be detected or accurately quantified due to prozone phenomenon or in high viscosity samples using this immunoturbidimetric assay. Correlation with other laboratory results and clinical findings is recommended.The [place] Free Light Chain was performed using the Binding Site Optilite immunoturbidimetric method. Result obtained with different assay methods or kits cannot be used interchangeably. Performed By: #### K LFRS ####[facility] LABCLIA [id number] [place] [address] [place] Immunoglobulin light chains.kappa/Immunogl obulin light chains.lambda (S) [Mass ratio] 1.02 Normal 0.26-1.65 [facility] Comment on above: Order Comment: Speci men Type: BLOOD SPECIMENOrdering Facility: [facility] Address: [address] [place] [address] Performed By: #### K LFRS ####[facility] LABIA [id number] [place] [address] [place] Immunoglobulin light chains.lambda.free [Mass/Vol] 34.4 mg/L High 5.7-26.3 [facility] Comment on above: Order Comment: Speci men Type: BLOOD SPECIMENOrdering Facility: [facility] Address: [address] [place] [address] Result Comment: Rare ly, increased serum free light chains levels may not be detected or accurately quantified due to prozone phenomenon or in high viscosity samples using this immunoturbidimetric assay. Correlation with other laboratory results and clinical findings is recommended.The [place] Free Light Chain was performed using the Binding Site Optilite immunoturbidimetric method. Result obtained with different assay methods or kits cannot be used interchangeably. Performed By: #### K LFRS ####[facility] LABIA [id number] [place] [address] [place] MONOCLONAL PROT UR W/INTERPo n 09-25-2024 STAFF REVIEW ([facility]) Reviewed by Derrick Rawls MD, Ph.D ([id number]) Normal [facility] Comment on above: Order Comment: Speci men Type: URINE SPECIMENOrdering Facility: [facility] Address: [address] [place] [address] Performed By: #### U RMPA ####[facility] LABIA [id number] [place] [address] [place] UMPA RESULT No M protein is identified. Normal No M protein is identified. [facility] Comment on above: Order Comment: Speci men Type: URINE SPECIMENOrdering Facility: [facility] Address: [address] [place] [address] Performed By: #### U RMPA ####[facility] LABCLIA [id number] [place] [address] [place] Methylmalonate SerPl-sCncon 09-25-2024 Methylmalonate [Moles/Vol] 0.12 umol/L Normal <=0.40 [facility] Comment on above: Order Comment: Speci men Type: BLOOD SPECIMENOrdering Facility: [facility] Address: [address] [place] [address] Result Comment: This test was developed, and its performance characteristics determined by the [facility] Department of Pathology and Laboratory Medicine. It has not been cleared or approved by the FDA. The [facility] Department of Pathology and Laboratory Medicine is regulated under CLIA as qualified to perform high-complexity testing. This test is used for clinical purposes. It should not be regarded as investigational or for research. Performed By: #### 1 3964-2 ####[facility] LABIA [id number] [place] [address] [place] PROTEIN ELECTROPHORESIS SERU M (P)on 09-25-2024 Albumin [Mass/Vol] 4.60 g/dL Normal 3.43-5.41 [facility] Comment on above: Order Comment: Speci men Type: BLOOD SPECIMENOrdering Facility: [facility] Address: [address] [place] [address] Performed By: #### L [id number] ####[facility] LABIA [id number] [place] [address] [place] Alpha 1 globulin Elph [Mass/Vol] 0.33 g/dL Normal 0.18-0.43 [facility] Comment on above: Order Comment: Speci men Type: BLOOD SPECIMENOrdering Facility: [facility] Address: [address] [place] [address] Performed By: #### L [id number] ####[facility] LABCLIA [id number] [address] [address] [place] Alpha 2 globulin Elph [Mass/Vol] 0.76 g/dL Normal 0.42-0.98 [facility] Comment on above: Order Comment: Speci men Type: BLOOD SPECIMENOrdering Facility: [facility] Address: [address] [place] [address] Performed By: #### L [id number] ####[facility] LABCLIA [id number] [address] [address] [place] Beta globulin Elph [Mass/Vol] 1.12 g/dL Normal 0.61-1.17 [facility] Comment on above: Order Comment: Speci men Type: BLOOD SPECIMENOrdering Facility: [facility] Address: [address] [place] [address] Performed By: #### L [id number] ####[facility] LABCLIA [id number] [place] [id number] [place] Gamma globulin Elph [Mass/Vol] 1.28 g/dL Normal 0.53-1.51 [facility] Comment on above: Order Comment: Speci men Type: BLOOD SPECIMENOrdering Facility: [facility] Address: [address] [place] [address] Performed By: #### L [id number] ####[facility] LABCLIA [id number] [address] [address] [place] INTERPRETATION COMMENT FOR PROTEIN ELECTROPHORESIS Normal [facility] Comment on above: Order Comment: Speci men Type: BLOOD SPECIMENOrdering Facility: [facility] Address: [address] [place] [address] Performed By: #### L [id number] ####[facility] LABCLIA [id number] [address] [address] [place] M-PROTEIN LOCATION Normal [facility] Comment on above: Order Comment: Speci men Type: BLOOD SPECIMENOrdering Facility: [facility] Address: [address] [place] [address] Result Comment: Not Applicable. Performed By: #### L [id number] ####[facility] LABCLIA [id number] [place] [address] [place] Protein Fractions [Interp] An atypical region of restricted mobility is identified on protein electrophoresis. Abnormal No definitive M protein is identified on protein electrophore sis. [facility] Comment on above: Order Comment: Speci men Type: BLOOD SPECIMENOrdering Facility: [facility] Address: [address] [place] [address] Performed By: #### L [id number] ####[facility] [id number] [place] [address] [place] Protein.monoclonal Elph [Mass/Vol] 0.00 g/dL Normal <=0.00 [facility] Comment on above: Order Comment: Speci men Type: BLOOD SPECIMENOrdering Facility: [facility] Address: [address] [place] [address] Performed By: #### L [id number] ####[facility] [id number] [place] [address] [place] SPE STAFF REVIEW Reviewed by Derrick Rawls MD, Ph.D ([id number]) Normal [facility] Comment on above: Order Comment: Speci men Type: BLOOD SPECIMENOrdering Facility: [facility] Address: [address] [place] [address] Performed By: #### L [id number] ####[facility] LABIA [id number] [place] [id number] [place] Prot SerPl-mCncon 09-25-2024 Protein [Mass/Vol] 8.1 g/dL High 6.3-8.0 [facility] Comment on above: Order Comment: Speci men Type: BLOOD SPECIMENOrdering Facility: [facility] Address: [address] [place] [address] Performed By: #### 2 132-9, 2284-8, 2885-2 ####[facility] LABORATORYCLIA [id number] [address] [place] Prot Ur-mCncon 09-25-2024 Protein (U) [Mass/Vol] 6 mg/dL Normal 0-20 [facility] Comment on above: Order Comment: Speci men Type: URINE SPECIMENOrdering Facility: [facility] Address: [address] [place] [address] Performed By: #### 2 888-6 ####[facility] [id number] [address] [place] URINE PROTEIN ELECTROPHORESI S RANDOM (P)on 09-25-2024 Albumin Elph (U) [Mass fraction] 39.64 % Normal [facility] Comment on above: Order Comment: Speci men Type: URINE SPECIMENOrdering Facility: [facility] Address: [address] [place] [address] Performed By: #### L [id number] ####[facility] LABCLIA [id number] [address] [place] Alpha 1 globulin Elph (U) [Mass fraction] 3.33 % Normal [facility] Comment on above: Order Comment: Speci men Type: URINE SPECIMENOrdering Facility: [facility] Address: [address] [place] [address] Performed By: #### L [id number] ####[facility] LABCLIA [id number] [place] [id number] [place] Alpha 2 globulin Elph (U) [Mass fraction] 15.07 % Normal [facility] Comment on above: Order Comment: Speci men Type: URINE SPECIMENOrdering Facility: [facility] Address: [address] [place] [address] Performed By: #### L [id number] ####[facility] LABCLIA [id number] [place] [id number] [place] Beta globulin Elph (U) [Mass fraction] 22.71 % Normal [facility] Comment on above: Order Comment: Speci men Type: URINE SPECIMENOrdering Facility: [facility] Address: [address] [place] [address] Performed By: #### L [id number] ####[facility] LABCLIA [id number] [place] [address] [place] Gamma globulin Elph (U) [Mass fraction] 19.25 % Normal [facility] Comment on above: Order Comment: Speci men Type: URINE SPECIMENOrdering Facility: [facility] Address: [address] [place] [address] Performed By: #### L [id number] ####[facility] LABIA [id number] [place] [address] [place] Protein Fractions Elph Kamaljit (U) [Interp] No definitive M protein is identified on protein electrophoresis. Normal No definitive M protein is identified on protein electrophore sis. [facility] Comment on above: Order Comment: Speci men Type: URINE SPECIMENOrdering Facility: [facility] [facility] Address: [address] [place] [address] Performed By: #### L [id number] ####[facility] LABCLIA [id number] [place] [address] [place] STAFF REVIEW (URINE ELECTRO) Reviewed by Derrick Rawls MD, Ph.D ([id number]) Normal [facility] Comment on above: Order Comment: Speci men Type: URINE SPECIMENOrdering Facility: [facility] Address: [address] [place] [address] Performed By: #### L [id number] ####[facility] LABCLIA [id number] [place] [id number] [place] Vit B12 [facility] 025 Cobalamin (Vitamin B12) [Mass/Vol] 1008 pg/mL Normal 232-1245 [facility] Comment on above: Order Comment: Speci men Type: BLOOD SPECIMENOrdering Facility: [facility] Address: [address], [place] [address] Performed By: #### 2 132-9, 2284-8, 2885-2 ####[facility] LABORATORYCLIA [id number] [place] [address] [place] Abdomen Single Viewon 2024 Abdomen Single View Normal [facility] Gastroenterology Visit Repor ton 09-19-2024 Gastroenterology Visit Report Normal [facility] AFP, Tumor Markeron 09-17-19 AFP TUMOR VASILE 2.8 ng/mL Normal 0.0-8.4 [facility] Comment on above: Order Comment: Test( s) 943641-Tbhleh, Serum or Plasmawas developed and its performance characteristicsdetermined by [facility]. It has not been cleared or approvedby the Food and Drug Administration.N Result Comment: [employer] Electrochemiluminescence Immunoassay(ECLIA)Values obtained with different assay methods or kits cannotbe used interchangeably. Results cannot be interpreted asabsolute evidence of the presence or absence of malignantdisease.This test is not interpretable in females. Performed By: #### L 803.2200, L501.5200, L503.5510, L501.4700, L3400.0700, L3300.0100, L800.1280, L3100.1850, L501.9985, L300.3900, L503.6550, L501.5101, L3100.5450, L501.2300, L100.0100, L3300.0700, L501.6710, L500.4050, L503.6030 ####[facility] [address] [place], [address] GALLO w/ Reflex Mult Confirmon 09-17-2024 ANTI-DNA (DS)AB TNP Normal [facility] Comment on above: Performed By: #### L 803.2200, L501.5200, L503.5510, L501.4700, L3400.0700, L3300.0100, L800.1280, L3100.1850, L501.9985, L300.3900, L503.6550, L501.5101, L3100.5450, L501.2300, L100.0100, L3300.0700, L501.6710, L500.4050, L503.6030 ####[facility] [address] [place], [place], [id number] ANTISCLERODERM TNP Normal [facility] Comment on above: Performed By: #### L 803.2200, L501.5200, L503.5510, L501.4700, L3400.0700, L3300.0100, L800.1280, L3100.1850, L501.9985, L300.3900, L503.6550, L501.5101, L3100.5450, L501.2300, L100.0100, L3300.0700, L501.6710, L500.4050, L503.6030 ####[facility] [address] [place], [place], [phone] Anti-Smooth Muscle ABSon ANTISMOOTH MUSC 10 Units Normal 0-19 [facility] Comment on above: Order Comment: Test( s) 962521-Lnypkv, Serum or Plasmawas developed and its performance characteristicsdetermined by [facility]. It has not been cleared or approvedby [...] L3100.5450, L501.2300, L100.0100, L3300.0700, L501.6710, L500.4050, L503.6030 ####[facility] [address], [address] Ceruloplasminon 09-17-2024 CERULOPLASMIN 25.6 mg/dL Normal 16.0-31.0 [facility] Comment on above: Order Comment: Test( s) [id number]-Gjmtdr, Serum or Plasmawas developed and its performance characteristicsdetermined by [facility]. It has not been cleared or approvedby the Food and Drug Administration. Performed By: #### L 803.2200, L501.5200, L503.5510, L501.4700, L3400.0700, L3300.0100, L800.1280, L3100.1850, L501.9985, L300.3900, L503.6550, L501.5101, L3100.5450, L501.2300, L100.0100, L3300.0700, L501.6710, L500.4050, L503.6030 ####[facility] [address] [facility] [place], [place], [phone] Copper, Serum or Plasmaon COPPER, SERUM 119 ug/dL Normal 69-132 [facility] Comment on above: Order Comment: Test( s) 198813-Txcvoq, Serum or Plasmawas developed and its performance characteristicsdetermined by [facility]. It has not been cleared or approvedby the Food and Drug Administration. Result Comment: Dete ction Limit = 5 Performed By: #### L 803.2200, L501.5200, L503.5510, L501.4700, L3400.0700, L3300.0100, L800.1280, L3100.1850, L501.9985, L300.3900, L503.6550, L501.5101, L3100.5450, L501.2300, L100.0100, L3300.0700, L501.6710, L500.4050, L503.6030 ####[facility] [address] [place], [address] Haptoglobinon 09-17-2024 HAPTOGLOBIN 286 mg/dL Normal 34-355 [facility] Comment on above: Order Comment: Test( s) [id number]-Zoxmml, Serum or Plasmawas developed and its performance characteristicsdetermined by [facility]. It has not been cleared or approvedby the Food and Drug Administration. Result Comment: Perf ormed at: - [address] [id number] Director: José Miguel Alba PhD, Phone: [phone] at: [facility] [address] [id number] Director: Zafar Browne MD, Phone: [phone] Performed By: #### L 803.2200, L501.5200, L503.5510, L501.4700, L3400.0700, L3300.0100, L800.1280, L3100.1850, L501.9985, L300.3900, L503.6550, L501.5101, L3100.5450, L501.2300, L100.0100, L3300.0700, L501.6710, L500.4050, L503.6030 ####[facility] [address] [place], [address] L501.5101on 09-17-2024 GGTP 150 IU/L Abnormal 0-65 [facility] Comment on above: Order Comment: Test( s) [id number]-Dsrihq, Serum or Plasmawas developed and its performance characteristicsdetermined by [facility]. It has not been cleared or approvedby the Food and Drug Administration. Performed By: #### L 803.2200, L501.5200, L503.5510, L501.4700, L3400.0700, L3300.0100, L800.1280, L3100.1850, L501.9985, L300.3900, L503.6550, L501.5101, L3100.5450, L501.2300, L100.0100, L3300.0700, L501.6710, L500.4050, L503.6030 ####[facility] [address] [facility], [address] Anti-Mitochondrial ABon - ANTIMITOCHON AB <20.0 Normal 0.0-20.0 [facility] Comment on above: Result Comment: Nega tive 0.0 - 20.0 Equivocal 20.1 - 24.9 Positive >24.9Mitochondrial (M2) Antibodies are found in 90-96% ofpatients with primary biliary cirrhosis. Performed By: #### L 803.2200, L501.5200, L503.5510, L501.4700, L3400.0700, L3300.0100, L800.1280, L3100.1850, L501.9985, L300.3900, L503.6550, L501.5101, L3100.5450, L501.2300, L100.0100, L3300.0700, L501.6710, L500.4050, L503.6030 ####[facility] [address] [facility]. [place], [place], [phone] GALLO serumOrdered By: Shubham Blanco on 09-12-2024 Anti-Nuclear Antibody Screen Negative Negative [facility] Comment on above: Performed at: [address] [id number] Director: José Miguel Alba PhD, Phone: [phone] Absolute lymphocyte countOrd ered By: Shubham Blanco on 09-12-2024 Lymphocytes Auto (Unsp spec) [#/Vol] 0.77 10*3/uL Low 0.83-4.51 [facility] Absolute neutrophil countOrd ered By: Shubham Blanco on 09-12-2024 Neutrophils (Bld) [#/Vol] 5.1 10*3/uL 2.0-7.7 [facility] Actin IgG QnOrdered By: Nilda Blanco on 09-12-2024 Anti-Smooth Muscle Antibody 10 Units 0-19 [facility] Comment on above: Negative 0 - 19 Weak positive 20 - 30 Moderate to strong positive >30 Actin Antibodies are found in 52-85% of patients with autoimmune hepatitis or chronic active hepatitis and in 22% of patients with primary biliary cirrhosis. Albumin to globulin ratioOrd ered By: Shubham Blanco on 09-12-2024 Albumin/Globulin [Mass ratio] 0.8 {ratio} Low 0.9-2.4 [facility] Alpha fetoprotein measuremen t as tumor markerOrdered By: Shubham Blanco on 09-12-2024 Tumor Marker Alpha Fetoprotein 2.8 ng/mL 0.0-8.4 [facility] Comment on above: [employer] El ectrochemiluminescence Immunoassay(ECLIA)Values obtained with different assay methods or kits cannotbe used interchangeably. Results cannot be interpreted asabsolute evidence of the presence or absence of malignantdisease.This test is not interpretable in females. Ammoniaon 09-12-2024 Ammonia (P) [Moles/Vol] 30.0 umol/L Normal 11-32 [facility] Comment on above: Performed By: #### L 803.2200, L501.5200, L503.5510, L501.4700, L3400.0700, L3300.0100, L800.1280, L3100.1850, L501.9985, L300.3900, L503.6550, L501.5101, L3100.5450, L501.2300, L100.0100, L3300.0700, L501.6710, L500.4050, L503.6030 ####[facility] [address] [place], [place], [phone] Automated lymphocyte count a s percentage of total leukocytesOrdered By: Shubham Blanco on 09-12-2024 Lymphocytes/100 WBC Auto (Unsp spec) 9.8 % Low 19-41 [facility] Basophil percentageOrdered B y: Shubham Blanco on 09-12-2024 Basophils/100 WBC (Bld) 0.6 % 0-1 [facility] Bilirubin directOrdered By: Shubham Blanco on 09-12-2024 Bilirubin.direct [Mass/Vol] 0.18 mg/dL 0.00-0.30 [facility] Bilirubin, Directon 09-12-19 25 Bilirubin.direct [Mass/Vol] 0.18 mg/dL Normal 0.00-0.30 [facility] Comment on above: Performed By: #### L 803.2200, L501.5200, L503.5510, L501.4700, L3400.0700, L3300.0100, L800.1280, L3100.1850, L501.9985, L300.3900, L503.6550, L501.5101, L3100.5450, L501.2300, L100.0100, L3300.0700, L501.6710, L500.4050, L503.6030 ####[facility] [address], [address] Bilirubin, totalOrdered By: Shubham Blanco on 09-12-2024 Bilirubin [Mass/Vol] 0.70 mg/dL 0.20-1.00 [facility] Comment on above: For patients on eltr ombopag therapy, use of Dimension [place] TBIL is not recommended. Blood urea nitrogen (BUN)/cr eatinine ratioOrdered By: Shubham Blanco on 09-12-2024 Urea nitrogen/Creatinine [Mass ratio] 15.3 mg/mg 05-12 [facility] C-reactive protein measureme nt by high sensitivity methodOrdered By: Shubham Blanco on 09-12-2024 C-Reactive Protein Extended Range 10.80 mg/L High 0.0-3.0 [facility] Comment on above: C-Reactive Protein ( CRP) provides useful information for thediagnosis, therapy and monitoring of inflammatory processesand associated diseases. For the evaluation of Relative Riskfor Cardiovascular Disease, a High Sensitivity CRP (HSCRP)should be ordered. C-reactive protein measurement by high sensitivity method 10.80 mg/L High 0.0-3.0 [facility] Comment on above: C-Reactive Protein ( CRP) provides useful information for thediagnosis, therapy and monitoring of inflammatory processesand associated diseases. For the evaluation of Relative Riskfor Cardiovascular Disease, a High Sensitivity CRP (HSCRP)should be ordered. CBC W/Diff, Automatedon 02-2 0-2024 Absolute Lymph 0.77 X10 3/uL Low 0.83-4.51 [facility] Comment on above: Performed By: #### L 803.2200, L501.5200, L503.5510, L501.4700, L3400.0700, L3300.0100, L800.1280, L3100.1850, L501.9985, L300.3900, L503.6550, L501.5101, L3100.5450, L501.2300, L100.0100, L3300.0700, L501.6710, L500.4050, L503.6030 ####[facility] [address] [place], [address] Absolute Neut 5.1 X10 3/uL Normal 2.0-7.7 [facility] Comment on above: Performed By: #### L 803.2200, L501.5200, L503.5510, L501.4700, L3400.0700, L3300.0100, L800.1280, L3100.1850, L501.9985, L300.3900, L503.6550, L501.5101, L3100.5450, L501.2300, L100.0100, L3300.0700, L501.6710, L500.4050, L503.6030 ####[facility] [address], [address] Basophils/100 WBC (Bld) 0.6 % Normal 0-1 [facility] Comment on above: Performed By: #### L 803.2200, L501.5200, L503.5510, L501.4700, L3400.0700, L3300.0100, L800.1280, L3100.1850, L501.9985, L300.3900, L503.6550, L501.5101, L3100.5450, L501.2300, L100.0100, L3300.0700, L501.6710, L500.4050, L503.6030 ####[facility] [address] [place], [address] Eosinophils/100 WBC (Bld) 10.9 % High 0-5 [facility] Comment on above: Performed By: #### L 803.2200, L501.5200, L503.5510, L501.4700, L3400.0700, L3300.0100, L800.1280, L3100.1850, L501.9985, L300.3900, L503.6550, L501.5101, L3100.5450, L501.2300, L100.0100, L3300.0700, L501.6710, L500.4050, L503.6030 ####[facility] [address] [facility] [place], [address] Erythrocyte distribution width (RBC) [Ratio] 13.2 % Normal 11.6-14.6 [facility] Comment on above: Performed By: #### L 803.2200, L501.5200, L503.5510, L501.4700, L3400.0700, L3300.0100, L800.1280, L3100.1850, L501.9985, L300.3900, L503.6550, L501.5101, L3100.5450, L501.2300, L100.0100, L3300.0700, L501.6710, L500.4050, L503.6030 ####[facility] [address] [place], [address] Hematocrit (Bld) [Volume fraction] 41.0 % Normal 40-54 [facility] Comment on above: Performed By: #### L 803.2200, L501.5200, L503.5510, L501.4700, L3400.0700, L3300.0100, L800.1280, L3100.1850, L501.9985, L300.3900, L503.6550, L501.5101, L3100.5450, L501.2300, L100.0100, L3300.0700, L501.6710, L500.4050, L503.6030 ####[facility] [address] [facility] [place], [address] Hemoglobin (Bld) [Mass/Vol] 13.9 g/dL Normal 13.0-16.5 [facility] Comment on above: Performed By: #### L 803.2200, L501.5200, L503.5510, L501.4700, L3400.0700, L3300.0100, L800.1280, L3100.1850, L501.9985, L300.3900, L503.6550, L501.5101, L3100.5450, L501.2300, L100.0100, L3300.0700, L501.6710, L500.4050, L503.6030 ####[facility] [address] [facility], [address] IG% 0.300 Normal 0.0-0.9 [facility] Comment on above: Result Comment: IG% - Immature Granulocytes (promyelocytes, myelocytes andmetamyelocytes) > 1% indicates that a LEFT SHIFT is Present. Performed By: #### L 803.2200, L501.5200, L503.5510, L501.4700, L3400.0700, L3300.0100, L800.1280, L3100.1850, L501.9985, L300.3900, L503.6550, L501.5101, L3100.5450, L501.2300, L100.0100, L3300.0700, L501.6710, L500.4050, L503.6030 ####[facility] [address] [facility]. [place], [place], [phone] Lymphocytes/100 WBC (Bld) 9.8 % Low 19-41 [facility] Comment on above: Performed By: #### L 803.2200, L501.5200, L503.5510, L501.4700, L3400.0700, L3300.0100, L800.1280, L3100.1850, L501.9985, L300.3900, L503.6550, L501.5101, L3100.5450, L501.2300, L100.0100, L3300.0700, L501.6710, L500.4050, L503.6030 ####[facility] [address] [place], [address] MCH (RBC) [Entitic mass] 34.0 pg High 27.0-32.0 [facility] Comment on above: Performed By: #### L 803.2200, L501.5200, L503.5510, L501.4700, L3400.0700, L3300.0100, L800.1280, L3100.1850, L501.9985, L300.3900, L503.6550, L501.5101, L3100.5450, L501.2300, L100.0100, L3300.0700, L501.6710, L500.4050, L503.6030 ####[facility] [address] [place], [place], [phone] MCHC (RBC) [Mass/Vol] 33.9 g/dL Normal 32-36 [facility] Comment on above: Performed By: #### L 803.2200, L501.5200, L503.5510, L501.4700, L3400.0700, L3300.0100, L800.1280, L3100.1850, L501.9985, L300.3900, L503.6550, L501.5101, L3100.5450, L501.2300, L100.0100, L3300.0700, L501.6710, L500.4050, L503.6030 ####[facility] [address] [place], [place], [phone] MCV (RBC) [Entitic vol] 100.2 fL High 80-94 [facility] Comment on above: Performed By: #### L 803.2200, L501.5200, L503.5510, L501.4700, L3400.0700, L3300.0100, L800.1280, L3100.1850, L501.9985, L300.3900, L503.6550, L501.5101, L3100.5450, L501.2300, L100.0100, L3300.0700, L501.6710, L500.4050, L503.6030 ####[facility] [address], [address](117) Monocytes/100 WBC (Bld) 13.9 % High 0-10 [facility] Comment on above: Performed By: #### L 803.2200, L501.5200, L503.5510, L501.4700, L3400.0700, L3300.0100, L800.1280, L3100.1850, L501.9985, L300.3900, L503.6550, L501.5101, L3100.5450, L501.2300, L100.0100, L3300.0700, L501.6710, L500.4050, L503.6030 ####[facility] [address] [place], [place], [phone](042) Neutrophils/100 WBC (Bld) 64.5 % Normal 47-70 [facility] Comment on above: Performed By: #### L 803.2200, L501.5200, L503.5510, L501.4700, L3400.0700, L3300.0100, L800.1280, L3100.1850, L501.9985, L300.3900, L503.6550, L501.5101, L3100.5450, L501.2300, L100.0100, L3300.0700, L501.6710, L500.4050, L503.6030 ####[facility] [address], [address](140) Nucleated RBC (Bld) [#/Vol] 0 10*3/uL Normal 0-5 [facility] Comment on above: Performed By: #### L 803.2200, L501.5200, L503.5510, L501.4700, L3400.0700, L3300.0100, L800.1280, L3100.1850, L501.9985, L300.3900, L503.6550, L501.5101, L3100.5450, L501.2300, L100.0100, L3300.0700, L501.6710, L500.4050, L503.6030 ####[facility] [address] [place], [place], [phone](404) Platelet mean volume (Bld) [Entitic vol] 10.1 fL Normal 6.2-12.0 [facility] Comment on above: Performed By: #### L 803.2200, L501.5200, L503.5510, L501.4700, L3400.0700, L3300.0100, L800.1280, L3100.1850, L501.9985, L300.3900, L503.6550, L501.5101, L3100.5450, L501.2300, L100.0100, L3300.0700, L501.6710, L500.4050, L503.6030 ####[facility] [address] [place], [place], [phone](142) Platelets (Bld) [#/Vol] 220 10*3/uL Normal 150-450 [facility] Comment on above: Performed By: #### L 803.2200, L501.5200, L503.5510, L501.4700, L3400.0700, L3300.0100, L800.1280, L3100.1850, L501.9985, L300.3900, L503.6550, L501.5101, L3100.5450, L501.2300, L100.0100, L3300.0700, L501.6710, L500.4050, L503.6030 ####[facility] [address] [place], [place], [phone](605) RBC (Bld) [#/Vol] 4.09 10*6/uL Low 4.6-6.2 [facility] Comment on above: Performed By: #### L 803.2200, L501.5200, L503.5510, L501.4700, L3400.0700, L3300.0100, L800.1280, L3100.1850, L501.9985, L300.3900, L503.6550, L501.5101, L3100.5450, L501.2300, L100.0100, L3300.0700, L501.6710, L500.4050, L503.6030 ####[facility] [address] [place], [place], [phone](171) RDW SD 48.1 fl High 35.1-43.9 [facility] Comment on above: Performed By: #### L 803.2200, L501.5200, L503.5510, L501.4700, L3400.0700, L3300.0100, L800.1280, L3100.1850, L501.9985, L300.3900, L503.6550, L501.5101, L3100.5450, L501.2300, L100.0100, L3300.0700, L501.6710, L500.4050, L503.6030 ####[facility] [address] [facility] [address] [place], [place], [phone](063) WBC (Bld) [#/Vol] 7.9 10*3/uL Normal 4.4-11.0 [facility] Comment on above: Performed By: #### L 803.2200, L501.5200, L503.5510, L501.4700, L3400.0700, L3300.0100, L800.1280, L3100.1850, L501.9985, L300.3900, L503.6550, L501.5101, L3100.5450, L501.2300, L100.0100, L3300.0700, L501.6710, L500.4050, L503.6030 ####[facility] [address] [facility] [place], [place], [phone] CRPon 09-12-2024 C-REACTIVE PROT 10.80 mg/L High 0.0-3.0 [facility] Comment on above: Result Comment: C-Re active Protein (CRP) provides useful information for thediagnosis, therapy and monitoring of inflammatory processesand associated diseases. For the evaluation of Relative Riskfor Cardiovascular Disease, a High Sensitivity CRP (HSCRP)should be ordered. Performed By: #### L 803.2200, L501.5200, L503.5510, L501.4700, L3400.0700, L3300.0100, L800.1280, L3100.1850, L501.9985, L300.3900, L503.6550, L501.5101, L3100.5450, L501.2300, L100.0100, L3300.0700, L501.6710, L500.4050, L503.6030 ####[facility] [address] [facility]. [place], [place], [address] Carbon dioxide measurementOr dered By: Shubham Blanco on 09-12-2024 CO2 [Moles/Vol] 24.0 mmol/L 21.0-32.0 [facility] Centromere B antibody assayO rdered By: Shubham Blanco on 09-12-2024 Centromere B Antibody TNP [facility] Comment on above: Test not performed CeruloplasminOrdered By: Gennaro Blanco on 09-12-2024 Ceruloplasmin 25.6 mg/dL 16.0-31.0 [facility] Chloride measurementOrdered By: Shubham Blanco on 09-12-2024 Chloride [Moles/Vol] 107 mmol/L 98-107 [facility] Chromatin antibody assayOrde red By: Shubham Blanco on 09-12-2024 Antichromatin Antibodies TNP [facility] Comment on above: Test not performed Comprehensive Metabolic Prof ilon 09-12-2024 Albumin [Mass/Vol] 3.3 g/dL Normal 3.2-5.0 [facility] Comment on above: Performed By: #### L 803.2200, L501.5200, L503.5510, L501.4700, L3400.0700, L3300.0100, L800.1280, L3100.1850, L501.9985, L300.3900, L503.6550, L501.5101, L3100.5450, L501.2300, L100.0100, L3300.0700, L501.6710, L500.4050, L503.6030 ####[facility] [address] [place], [place], [id number] Albumin/Globulin [Mass ratio] 0.8 {ratio} Low 0.9-2.4 [facility] Comment on above: Performed By: #### L 803.2200, L501.5200, L503.5510, L501.4700, L3400.0700, L3300.0100, L800.1280, L3100.1850, L501.9985, L300.3900, L503.6550, L501.5101, L3100.5450, L501.2300, L100.0100, L3300.0700, L501.6710, L500.4050, L503.6030 ####[facility] [address] [place], [address] ALK P 134 U/L High 45-117 [facility] Comment on above: Performed By: #### L 803.2200, L501.5200, L503.5510, L501.4700, L3400.0700, L3300.0100, L800.1280, L3100.1850, L501.9985, L300.3900, L503.6550, L501.5101, L3100.5450, L501.2300, L100.0100, L3300.0700, L501.6710, L500.4050, L503.6030 ####[facility] [address] [place], [place], [id number] ALT [Catalytic activity/Vol] 36 U/L Normal 16-61 [facility] Comment on above: Performed By: #### L 803.2200, L501.5200, L503.5510, L501.4700, L3400.0700, L3300.0100, L800.1280, L3100.1850, L501.9985, L300.3900, L503.6550, L501.5101, L3100.5450, L501.2300, L100.0100, L3300.0700, L501.6710, L500.4050, L503.6030 ####[facility] [address] [place], [address] AST [Catalytic activity/Vol] 38 U/L High 15-37 [facility] Comment on above: Performed By: #### L 803.2200, L501.5200, L503.5510, L501.4700, L3400.0700, L3300.0100, L800.1280, L3100.1850, L501.9985, L300.3900, L503.6550, L501.5101, L3100.5450, L501.2300, L100.0100, L3300.0700, L501.6710, L500.4050, L503.6030 ####[facility] [address] [place], [place], [id number] Bilirubin [Mass/Vol] 0.70 mg/dL Normal 0.20-1.00 [facility] Comment on above: Result Comment: For patients on eltrombopag therapy, use of Dimension [place] TBIL is not recommended. Performed By: #### L 803.2200, L501.5200, L503.5510, L501.4700, L3400.0700, L3300.0100, L800.1280, L3100.1850, L501.9985, L300.3900, L503.6550, L501.5101, L3100.5450, L501.2300, L100.0100, L3300.0700, L501.6710, L500.4050, L503.6030 ####[facility] [address] [place], [place], [id number](116) BUN/CRE 15.3 RATIO Normal 10-20 [facility] Comment on above: Performed By: #### L 803.2200, L501.5200, L503.5510, L501.4700, L3400.0700, L3300.0100, L800.1280, L3100.1850, L501.9985, L300.3900, L503.6550, L501.5101, L3100.5450, L501.2300, L100.0100, L3300.0700, L501.6710, L500.4050, L503.6030 ####[facility] [address] [place], [place], [id number] CA,Total 9.6 mg/dL Normal 8.5-10.1 [facility] Comment on above: Performed By: #### L 803.2200, L501.5200, L503.5510, L501.4700, L3400.0700, L3300.0100, L800.1280, L3100.1850, L501.9985, L300.3900, L503.6550, L501.5101, L3100.5450, L501.2300, L100.0100, L3300.0700, L501.6710, L500.4050, L503.6030 ####[facility] [address] [place], [address] Chloride [Moles/Vol] 107 mmol/L Normal 98-107 [facility] Comment on above: Performed By: #### L 803.2200, L501.5200, L503.5510, L501.4700, L3400.0700, L3300.0100, L800.1280, L3100.1850, L501.9985, L300.3900, L503.6550, L501.5101, L3100.5450, L501.2300, L100.0100, L3300.0700, L501.6710, L500.4050, L503.6030 ####[facility] [address] [place], [address] CO2 [Moles/Vol] 24.0 mmol/L Normal 21.0-32.0 [facility] Comment on above: Performed By: #### L 803.2200, L501.5200, L503.5510, L501.4700, L3400.0700, L3300.0100, L800.1280, L3100.1850, L501.9985, L300.3900, L503.6550, L501.5101, L3100.5450, L501.2300, L100.0100, L3300.0700, L501.6710, L500.4050, L503.6030 ####[facility] [address] [place], [place], [id number] Creatinine [Mass/Vol] 0.72 mg/dL Normal 0.70-1.30 [facility] Comment on above: Result Comment: The validity of the calculated GFR GFRAA in patients over70 years has not been determined. Clinical correlation isessential. Performed By: #### L 803.2200, L501.5200, L503.5510, L501.4700, L3400.0700, L3300.0100, L800.1280, L3100.1850, L501.9985, L300.3900, L503.6550, L501.5101, L3100.5450, L501.2300, L100.0100, L3300.0700, L501.6710, L500.4050, L503.6030 ####[facility] [address] [place], [address] EST GFR - AA 137 mL/min Normal >60 [facility] Comment on above: Result Comment: Afri can Icelandic GFR Calc Performed By: #### L 803.2200, L501.5200, L503.5510, L501.4700, L3400.0700, L3300.0100, L800.1280, L3100.1850, L501.9985, L300.3900, L503.6550, L501.5101, L3100.5450, L501.2300, L100.0100, L3300.0700, L501.6710, L500.4050, L503.6030 ####[facility] [address] [place], [address] GAP 6 Normal 5-15 [facility] Comment on above: Performed By: #### L 803.2200, L501.5200, L503.5510, L501.4700, L3400.0700, L3300.0100, L800.1280, L3100.1850, L501.9985, L300.3900, L503.6550, L501.5101, L3100.5450, L501.2300, L100.0100, L3300.0700, L501.6710, L500.4050, L503.6030 ####[facility] [address], [address] GFR/1.73 sq M.predicted among non-blacks MDRD (S/P/Bld) [Vol rate/Area] 113 mL/min/{1.73_m2} Normal >60 [facility] Comment on above: Result Comment: Non- GFR Calc Performed By: #### L 803.2200, L501.5200, L503.5510, L501.4700, L3400.0700, L3300.0100, L800.1280, L3100.1850, L501.9985, L300.3900, L503.6550, L501.5101, L3100.5450, L501.2300, L100.0100, L3300.0700, L501.6710, L500.4050, L503.6030 ####[facility] [address] [place], [place], [phone] Globulin (S) [Mass/Vol] 4.2 g/dL Normal 2.2-4.2 [facility] Comment on above: Performed By: #### L 803.2200, L501.5200, L503.5510, L501.4700, L3400.0700, L3300.0100, L800.1280, L3100.1850, L501.9985, L300.3900, L503.6550, L501.5101, L3100.5450, L501.2300, L100.0100, L3300.0700, L501.6710, L500.4050, L503.6030 ####[facility] [address] [place], [place], [address] Glucose [Mass/Vol] 91 mg/dL Normal 74-106 [facility] Comment on above: Performed By: #### L 803.2200, L501.5200, L503.5510, L501.4700, L3400.0700, L3300.0100, L800.1280, L3100.1850, L501.9985, L300.3900, L503.6550, L501.5101, L3100.5450, L501.2300, L100.0100, L3300.0700, L501.6710, L500.4050, L503.6030 ####[facility] [address] [place], [place], [phone] Potassium [Moles/Vol] 4.4 mmol/L Normal 3.5-5.1 [facility] Comment on above: Performed By: #### L 803.2200, L501.5200, L503.5510, L501.4700, L3400.0700, L3300.0100, L800.1280, L3100.1850, L501.9985, L300.3900, L503.6550, L501.5101, L3100.5450, L501.2300, L100.0100, L3300.0700, L501.6710, L500.4050, L503.6030 ####[facility] [address] [place], [address] Sodium [Moles/Vol] 137 mmol/L Normal 136-145 [facility] Comment on above: Performed By: #### L 803.2200, L501.5200, L503.5510, L501.4700, L3400.0700, L3300.0100, L800.1280, L3100.1850, L501.9985, L300.3900, L503.6550, L501.5101, L3100.5450, L501.2300, L100.0100, L3300.0700, L501.6710, L500.4050, L503.6030 ####[facility] [address] [place], [address] T PROT 7.5 g/dL Normal 6.4-8.2 [facility] Comment on above: Performed By: #### L 803.2200, L501.5200, L503.5510, L501.4700, L3400.0700, L3300.0100, L800.1280, L3100.1850, L501.9985, L300.3900, L503.6550, L501.5101, L3100.5450, L501.2300, L100.0100, L3300.0700, L501.6710, L500.4050, L503.6030 ####[facility] [address] [place], [place], [id number] Urea nitrogen [Mass/Vol] 11 mg/dL Normal 7-18 [facility] Comment on above: Performed By: #### L 803.2200, L501.5200, L503.5510, L501.4700, L3400.0700, L3300.0100, L800.1280, L3100.1850, L501.9985, L300.3900, L503.6550, L501.5101, L3100.5450, L501.2300, L100.0100, L3300.0700, L501.6710, L500.4050, L503.6030 ####[facility] [address] [place], [place], [phone] Copper, serumOrdered By: Gennaro Blanco on 09-12-2024 Serum Copper 119 ug/dL 69-132 [facility] Comment on above: Detection Limit = 5 DNA double strand Ab Qn (S)O rdered By: Shubham Blanco on 09-12-2024 Anti-Double Strand DNA Antibody TNP [facility] Comment on above: Test not performed Eosinophil percentageOrdered By: Shubham Blanco on 09-12-2024 Eosinophils/100 WBC (Bld) 10.9 % High 0-5 [facility] Erythrocyte distribution wid th ratioOrdered By: Shubham Blanco on 09-12-2024 Erythrocyte distribution width (RBC) [Ratio] 13.2 % 11.6-14.6 [facility] Erythrocyte distribution wid th standard deviationOrdered By: Shubham Blanco on 09-12-2024 Erythrocyte distribution width (RBC) [Entitic vol] 48.1 fL High 35.1-43.9 [facility] Erythrocyte distribution width (RBC) [Ratio] 48.1 fl High 35.1-43.9 [facility] Estimated glomerular filtrat ion rate (GFR) AmericanOrdered By: Shubham Blanco on 09-12-2024 Estimated GFR (MDRD) Amer 137 mL/min >60 [facility] Comment on above: GFR Calc Ferritinon 09-12-2024 Ferritin [Mass/Vol] 106 ng/mL Normal 26-388 [facility] Comment on above: Performed By: #### L 803.2200, L501.5200, L503.5510, L501.4700, L3400.0700, L3300.0100, L800.1280, L3100.1850, L501.9985, L300.3900, L503.6550, L501.5101, L3100.5450, L501.2300, L100.0100, L3300.0700, L501.6710, L500.4050, L503.6030 ####[facility] [address] [place], [place], [id number] Ferritin measurementOrdered By: Shubham Blanco on 09-12-2024 Ferritin [Mass/Vol] 106 ng/mL 26-388 [facility] Gamma glutamyl transferase ( GGT) measurementOrdered By: Shubham Blanco on 09-12-2024 Amylase [Catalytic activity/Vol] 150 U/L High 0-65 [facility] Glomerular filtration rate ( GFR) estimationOrdered By: Shubham Blanco on 09-12-2024 Estimated GFR (MDRD) Non-Af Amer 113 mL/min >60 [facility] Comment on above: Non- GFR Calc GFR/1.73 sq M.predicted among non-blacks MDRD (S/P/Bld) [Vol rate/Area] 113 mL/min/{1.73_m2} >60 [facility] Comment on above: Non- GFR Calc Glucose measurementOrdered B y: Shubham Blanco on 09-12-2024 Glucose [Mass/Vol] 91 mg/dL 74-106 [facility] HBV surface IgG Ql (S)Ordere d By: Shubham Blanco on 09-12-2024 Hepatitis B Surface Antibody Non-Reactive [facility] Comment on above: Non Reactive: Incons istent with immunity less than <10 mIU/mL Reactive: Consistent with immunity greater than or equal to 10 mIU/mL HaptoglobinOrdered By: Maritza Blanco on 09-12-2024 Haptoglobin 286 mg/dL 34-355 [facility] Comment on above: Performed at: [facility] [address] [place], [place] [id number] Director: José Miguel Alba PhD, Phone: [phone] at: [facility] [address] [id number] Director: Zafar Browne MD, Phone: [phone] Hematocrit Auto (Bld) [Volum e fraction]Ordered By: Shubham Blanco on 09-12-2024 Hematocrit (Bld) [Volume fraction] 41.0 % 40-54 [facility] Hemoglobin A1con 09-12-2024 HbA1c (Bld) [Mass fraction] 5.6 % Normal 3.8-5.6 [facility] Comment on above: Result Comment: Norm al < 5.7 % Prediabetic 5.7 - 6.4 % Diabetic >or= 6.5 % Please note range changes. Performed By: #### L 803.2200, L501.5200, L503.5510, L501.4700, L3400.0700, L3300.0100, L800.1280, L3100.1850, L501.9985, L300.3900, L503.6550, L501.5101, L3100.5450, L501.2300, L100.0100, L3300.0700, L501.6710, L500.4050, L503.6030 ####[facility] [address] [facility]. [place], [place], [id number] Hemoglobin A1c percentageOrd ered By: Shubham Blanco on 09-12-2024 HbA1c (Bld) [Mass fraction] 5.6 % 3.8-5.6 [facility] Comment on above: Normal < 5.7 % Predi abetic 5.7 - 6.4 % Diabetic >or= 6.5 % Please note range changes. Hemoglobin measurementOrdere d By: Shubham Blanco on 09-12-2024 Hemoglobin (Bld) [Mass/Vol] 13.9 g/dL 13.0-16.5 [facility] Hepatitis B Surface Antibody on 09-12-2024 HEP B Surf Ab Non-Reactive Normal [facility] Comment on above: Result Comment: Non Reactive: Inconsistent with immunity less than <10 mIU/mL Reactive: Consistent with immunity greater than or equal to 10 mIU/mL Performed By: #### L 3890.6200 ####[facility] [address] [place], [place], [id number] Immature granulocytes/100 WB C Auto (Bld)Ordered By: Shubham Blanco on 09-12-2024 Immature granulocytes/100 WBC (Bld) 0.300 % 0.0-0.9 [facility] Comment on above: IG% - Immature Granu locytes (promyelocytes, myelocytes and metamyelocytes) > 1% indicates that a LEFT SHIFT is Present. International normalized rat io (INR) calculationOrdered By: Shubham Blanco on 09-12-2024 INR Coag (Bld) [Relative time] 1.0 {INR} [facility] Iron (Unsp spec) [Mass/Mass] Ordered By: Shubham Blanco on 09-12-2024 Iron [Mass/Vol] 77 ug/dL 65-175 [facility] Iron measurement (mass/mass) Ordered By: Shubham Blanco on 09-12-2024 Iron (Unsp spec) [Mass/Mass] 77 ug/dL 65-175 [facility] Iron saturation [Mass fracti on]Ordered By: Shubham Blanco on 09-12-2024 Iron Saturation 27.7 % 15.0-55.0 [facility] Iron+Iron Binding Capacityon 09-12-2024 Iron [Mass/Vol] 77 ug/dL Normal 65-175 [facility] Comment on above: Performed By: #### L 803.2200, L501.5200, L503.5510, L501.4700, L3400.0700, L3300.0100, L800.1280, L3100.1850, L501.9985, L300.3900, L503.6550, L501.5101, L3100.5450, L501.2300, L100.0100, L3300.0700, L501.6710, L500.4050, L503.6030 ####[facility] [address], [address] IRON SATURATION 27.7 Normal 15.0-55.0 [facility] Comment on above: Performed By: #### L 803.2200, L501.5200, L503.5510, L501.4700, L3400.0700, L3300.0100, L800.1280, L3100.1850, L501.9985, L300.3900, L503.6550, L501.5101, L3100.5450, L501.2300, L100.0100, L3300.0700, L501.6710, L500.4050, L503.6030 ####[facility] [address] [place], [address] TIBC 278 ug/dL Normal 250-450 [facility] Comment on above: Performed By: #### L 803.2200, L501.5200, L503.5510, L501.4700, L3400.0700, L3300.0100, L800.1280, L3100.1850, L501.9985, L300.3900, L503.6550, L501.5101, L3100.5450, L501.2300, L100.0100, L3300.0700, L501.6710, L500.4050, L503.6030 ####[facility] [address] [place], [address] Francia-1 antibody assayOrdered B y: Shubham Blanco on 09-12-2024 FRANCIA-1 Antibody TNP [facility] Comment on above: Test not performed Laboratory - Chemistry and C hemistry - challengeOrdered By: Shubham Blanco on 09-12-2024 AST [Catalytic activity/Vol] 38 U/L High 15-37 [facility] Lymphocytes Auto (Unsp spec) [#/Vol]Ordered By: Shubham Blanco on 09-12-2024 Lymphocytes (Bld) [#/Vol] 0.77 10*3/uL Low 0.83-4.51 [facility] Lymphocytes/100 WBC Auto (Un sp spec)Ordered By: Shubham Blanco on 09-12-2024 Lymphocytes/100 WBC (Bld) 9.8 % Low 19-41 [facility] MCV (mean corpuscular volume ) determinationOrdered By: Shubham Blanco on 09-12-2024 MCV (RBC) [Entitic vol] 100.2 fL High 80-94 [facility] Magnesiumon 09-12-2024 Magnesium [Mass/Vol] 2.0 mg/dL Normal 1.6-2.6 [facility] Comment on above: Performed By: #### L 803.2200, L501.5200, L503.5510, L501.4700, L3400.0700, L3300.0100, L800.1280, L3100.1850, L501.9985, L300.3900, L503.6550, L501.5101, L3100.5450, L501.2300, L100.0100, L3300.0700, L501.6710, L500.4050, L503.6030 ####[facility] [address] [place], [address] Magnesium measurementOrdered By: Shubham Blanco on 09-12-2024 Magnesium [Mass/Vol] 2.0 mg/dL 1.6-2.6 [facility] Mean corpuscular hemoglobin (MCH) determinationOrdered By: Shubham Blanco on 09-12-2024 MCH (RBC) [Entitic mass] 34.0 pg High 27.0-32.0 [facility] Mean corpuscular hemoglobin concentration (MCHC) determinationOrdered By: Shubham Blanco on 09-12-2024 MCHC (RBC) [Mass/Vol] 33.9 g/dL 32-36 [facility] Mean platelet volume determi nationOrdered By: Shubham Blanco on 09-12-2024 Platelet mean volume (Bld) [Entitic vol] 10.1 fL 6.2-12.0 [facility] Mitochondria Ab Ql (S)Ordere d By: Shubham Blanco on 09-12-2024 Anti-Mitochondrial Antibody <20.0 Units 0.0-20.0 [facility] Comment on above: Negative 0.0 - 20.0 Equivocal 20.1 - 24.9 Positive >24.9Mitochondrial (M2) Antibodies are found in 90-96% ofpatients with primary biliary cirrhosis. Monocyte percentageOrdered B y: Shubham Blanco on 09-12-2024 Monocytes/100 WBC (Bld) 13.9 % High 0-10 [facility] Neutrophil percentageOrdered By: Shubham Blanco on 09-12-2024 Neutrophils/100 WBC (Bld) 64.5 % 47-70 [facility] Nucleated red blood cell per centageOrdered By: Shubham Blanco on 09-12-2024 Nucleated RBC/100 WBC (Bld) [Ratio] 0 % 0-5 [facility] Phosphoruson 09-12-2024 Phosphate [Mass/Vol] 3.4 mg/dL Normal 2.5-4.9 [facility] Comment on above: Performed By: #### L 803.2200, L501.5200, L503.5510, L501.4700, L3400.0700, L3300.0100, L800.1280, L3100.1850, L501.9985, L300.3900, L503.6550, L501.5101, L3100.5450, L501.2300, L100.0100, L3300.0700, L501.6710, L500.4050, L503.6030 ####[facility] [address] [place], [address] Phosphorus measurementOrdere d By: Shubham Blanco on 09-12-2024 Phosphorus Level 3.4 mg/dL 2.5-4.9 [facility] Platelet countOrdered By: Tessa Blanco on 09-12-2024 Platelets (Bld) [#/Vol] 220 10*3/uL 150-450 [facility] Potassium measurementOrdered By: Shubham Blanco on 09-12-2024 Potassium [Moles/Vol] 4.4 mmol/L 3.5-5.1 [facility] Prothrombin Time w/INRon INR Coag (PPP) [Relative time] 1.0 {INR} Normal [facility] Comment on above: Performed By: #### L 803.2200, L501.5200, L503.5510, L501.4700, L3400.0700, L3300.0100, L800.1280, L3100.1850, L501.9985, L300.3900, L503.6550, L501.5101, L3100.5450, L501.2300, L100.0100, L3300.0700, L501.6710, L500.4050, L503.6030 ####[facility] [address] [place], [place], [phone] PT Coag (PPP) [Time] 13.3 s Normal 11.7-14.9 [facility] Comment on above: Performed By: #### L 803.2200, L501.5200, L503.5510, L501.4700, L3400.0700, L3300.0100, L800.1280, L3100.1850, L501.9985, L300.3900, L503.6550, L501.5101, L3100.5450, L501.2300, L100.0100, L3300.0700, L501.6710, L500.4050, L503.6030 ####[facility] [address] [place], [place], [id number] Prothrombin timeOrdered By: Shubham Blanco on 09-12-2024 PT Coag (PPP) [Time] 13.3 s 11.7-14.9 [facility] RBC Auto (Bld) [#/Vol]Ordere d By: Shubham Blanco on 09-12-2024 RBC (Bld) [#/Vol] 4.09 10*6/uL Low 4.6-6.2 [facility] RESEARCH PROJECT MANAGER abOrdered By: Shubham Goldman and on 09-12-2024 RESEARCH PROJECT MANAGER Antibody TNP [facility] Comment on above: Test not performed SCL-70 extractable nuclear A b Qn (S)Ordered By: Shubham Blanco on 09-12-2024 Scl-70 (Scleroderma) Antibody [facility] Comment on above: Test not performed SS-A IgG antibody assayOrder ed By: Shubham Blanco on 09-12-2024 SS-A/Ro IgG Antibody [facility] Comment on above: Test not performed SS-B IgG antibody assayOrder ed By: Shubham Blanco on 09-12-2024 SS-B/La IgG Antibody [facility] Comment on above: Test not performed Serum DNA double strand anti body assay (units/volume)Ordered By: Shubham Blanco on 09-12-2024 DNA double strand Ab Qn (S) [facility] Comment on above: Test not performed Serum Scl-70 antibody assay (units/volume)Ordered By: Shubham Blanco on 09-12-2024 SCL-70 extractable nuclear Ab Qn (S) [facility] Comment on above: Test not performed Serum anion gap measurementO rdered By: Shubham Blanco on 09-12-2024 Anion gap [Moles/Vol] 6 mmol/L 5-15 [facility] Serum globulin measurementOr dered By: Shubham Blanco on 09-12-2024 Globulin (S) [Mass/Vol] 4.2 g/dL 2.2-4.2 [facility] Serum hepatitis B virus surf jose antibody IgG detectionOrdered By: Shubham Blanco on 09-12-2024 HBV surface IgG Ql (S) Non-Reactive [facility] Comment on above: Non Reactive: Incons istent with immunity less than <10 mIU/mL Reactive: Consistent with immunity greater than or equal to 10 mIU/mL Serum mitochondria antibody detectionOrdered By: Shubham Blanco on 09-12-2024 Mitochondria Ab Ql (S) <20.0 Units 0.0-20.0 [facility] Comment on above: Negative 0.0 - 20.0 Equivocal 20.1 - 24.9 Positive >24.9Mitochondrial (M2) Antibodies are found in 90-96% ofpatients with primary biliary cirrhosis. Serum or plasma actin IgG an tibody assay (units/volume)Ordered By: Shubham Blanco on 09-12-2024 Actin IgG Qn 10 Units 0-19 [facility] Comment on above: Negative 0 - 19 Weak positive 20 - 30 Moderate to strong positive >30 Actin Antibodies are found in 52-85% of patients with autoimmune hepatitis or chronic active hepatitis and in 22% of patients with primary biliary cirrhosis. Serum or plasma alanine guevara otransferase (ALT) measurementOrdered By: Shubham Blanco on 09-12-2024 ALT [Catalytic activity/Vol] 36 U/L 16-61 [facility] Serum or plasma albumin reid urement (mass/volume)Ordered By: Shubham Blanco on 09-12-2024 Albumin [Mass/Vol] 3.3 g/dL 3.2-5.0 [facility] Serum or plasma alkaline adelfo sphatase measurementOrdered By: Shubham Blanco on 09-12-2024 ALP [Catalytic activity/Vol] 134 U/L High 45-117 [facility] Serum or plasma calcium reid urement (mass/volume)Ordered By: Shubham Blanco on 09-12-2024 Calcium [Mass/Vol] 9.6 mg/dL 8.5-10.1 [facility] Serum or plasma creatinine m easurement (mass/volume)Ordered By: Shubham Blanco on 09-12-2024 Creatinine [Mass/Vol] 0.72 mg/dL 0.70-1.30 [facility] Comment on above: The validity of the calculated GFR & GFRAA in patients over 70 years has not been determined. Clinical correlation is essential. Serum or plasma iron saturat ion measurement (mass fraction)Ordered By: Shubham Blanco on 09-12-2024 Iron saturation [Mass fraction] 27.7 % 15.0-55.0 [facility] Serum or plasma urea nitroge n measurement (mass/volume)Ordered By: Shubham Blanco on 09-12-2024 Urea nitrogen [Mass/Vol] 11 mg/dL 7-18 [facility] Schultz antibody assayOrdered By: Shubham Blanco on 09-12-2024 SM Antibody TNP [facility] Comment on above: Test not performed Sodium levelOrdered By: Nilda Blanco on 09-12-2024 Sodium [Moles/Vol] 137 mmol/L 136-145 [facility] TIBCOrdered By: Shubham choudhury on 09-12-2024 Total Iron Binding Capacity 278 ug/dL 250-450 [facility] Total proteinOrdered By: Gennaro mary jo Francis on 09-12-2024 Protein [Mass/Vol] 7.5 g/dL 6.4-8.2 [facility] Venous blood ammonia measure mentOrdered By: Shubhamlarry Blanco on 09-12-2024 Ammonia (P) [Moles/Vol] 30.0 umol/L 11-32 [facility] White blood cell (WBC) count Ordered By: Shubham Blanco on 09-12-2024 WBC (Bld) [#/Vol] 7.9 10*3/uL 4.4-11.[address] [facility] [address] Abd/Pelvis W/WO Contrasto n 09-06-2024 CT Abd/Pelvis W/WO Contrast Normal [facility] CNPNon 09-03-2024 CNPN Normal [facility] CNOVon 08-30-2024 CNOV Normal [facility] KAPPA/NEUMANN,FREE,SERon 2024 Immunoglobulin light chains.kappa.free (S) [Mass/Vol] 38.8 mg/L High 3.3-19.4 [facility] Comment on above: Order Comment: Speci men Type: BLOOD SPECIMENOrdering Facility: [facility] Address: [address] [place] [address] Result Comment: Rare ly, increased serum free light chains levels may not be detected or accurately quantified due to prozone phenomenon or in high viscosity samples using this immunoturbidimetric assay. Correlation with other laboratory results and clinical findings is recommended.The [place] Free Light Chain was performed using the Binding Site Optilite immunoturbidimetric method. Result obtained with different assay methods or kits cannot be used interchangeably. Performed By: #### K LFRS ####[facility] LABCLIA [id number] [place] [address] [place] Immunoglobulin light chains.kappa/Immunogl obulin light chains.lambda (S) [Mass ratio] 1.24 Normal 0.26-1.65 [facility] Comment on above: Order Comment: Speci men Type: BLOOD SPECIMENOrdering Facility: [facility] Address: [address] [place] [address] Performed By: #### K LFRS ####[facility] LABCLIA [id number] [place] [address] [place] Immunoglobulin light chains.lambda.free [Mass/Vol] 31.4 mg/L High 5.7-26.3 [facility] Comment on above: Order Comment: Speci men Type: BLOOD SPECIMENOrdering Facility: [facility] Address: [address] [place] [address] Result Comment: Rare ly, increased serum free light chains levels may not be detected or accurately quantified due to prozone phenomenon or in high viscosity samples using this immunoturbidimetric assay. Correlation with other laboratory results and clinical findings is recommended.The [place] Free Light Chain was performed using the Binding Site Optilite immunoturbidimetric method. Result obtained with different assay methods or kits cannot be used interchangeably. Performed By: #### K LFRS ####[facility] LABCLIA [id number] [place] [address] [place] PROTEIN ELECTROPHORESIS SERU M (P)on 08-30-2024 Albumin [Mass/Vol] 4.18 g/dL Normal 3.43-5.41 [facility] Comment on above: Order Comment: Speci men Type: BLOOD SPECIMENOrdering Facility: [facility] Address: [address] [place] [address] Performed By: #### L [id number] ####[facility] LABCLIA [id number] [place] [address] [place] Alpha 1 globulin Elph [Mass/Vol] 0.38 g/dL Normal 0.18-0.43 [facility] Comment on above: Order Comment: Speci men Type: BLOOD SPECIMENOrdering Facility: [facility] Address: [address] [place] [address] Performed By: #### L [id number] ####[facility] LABCLIA [id number] [place] [address] [place] Alpha 2 globulin Elph [Mass/Vol] 0.87 g/dL Normal 0.42-0.98 [facility] Comment on above: Order Comment: Speci men Type: BLOOD SPECIMENOrdering Facility: [facility] Address: [address] [place] [address] Performed By: #### L [id number] ####[facility] LABCLIA [id number] [place] [address] [place] Beta globulin Elph [Mass/Vol] 1.05 g/dL Normal 0.61-1.17 [facility] Comment on above: Order Comment: Speci men Type: BLOOD SPECIMENOrdering Facility: [facility] Address: [address] [place] [address] Performed By: #### L [id number] ####[facility] LABCLIA [id number] [place] [address] [place] Gamma globulin Elph [Mass/Vol] 1.12 g/dL Normal 0.53-1.51 [facility] Comment on above: Order Comment: Speci men Type: BLOOD SPECIMENOrdering Facility: [facility] Address: [address] [place] [address] Performed By: #### L [id number] ####[facility] LABCLIA [id number] [place] [address] [place] INTERPRETATION COMMENT FOR PROTEIN ELECTROPHORESIS Normal [facility] Comment on above: Order Comment: Speci men Type: BLOOD SPECIMENOrdering Facility: [facility] Address: [address] [place] [address] Performed By: #### L [id number] ####[facility] LABCLIA [id number] [place] [address] [place] M-PROTEIN LOCATION Normal [facility] Comment on above: Order Comment: Speci men Type: BLOOD SPECIMENOrdering Facility: [facility] Address: [address] [place] [address] Result Comment: Not Applicable. Performed By: #### L [id number] ####[facility] LABIA [id number] [place] [address] [place] Protein Fractions [Interp] An atypical region of restricted mobility is identified on protein electrophoresis. Abnormal No definitive M protein is identified on protein electrophore sis. [facility] Comment on above: Order Comment: Speci men Type: BLOOD SPECIMENOrdering Facility: [facility] Address: [address] [place] [address] Performed By: #### L [id number] ####[facility] LABIA [id number] [place] [address] [place] Protein.monoclonal Elph [Mass/Vol] 0.00 g/dL Normal <=0.00 [facility] Comment on above: Order Comment: Speci men Type: BLOOD SPECIMENOrdering Facility: [facility] Address: [address] [place] [address] Performed By: #### L [id number] ####[facility] [id number] [place] [address] [place] SPE STAFF REVIEW Reviewed by Lizbeth navarrete M.D. Normal [facility] Comment on above: Order Comment: Speci men Type: BLOOD SPECIMENOrdering Facility: [facility] Address: [address] [place] [address] Performed By: #### L [id number] ####[facility] [id number] [place] [address] [place] Prot SerPl-mCncon 08-30-2024 Protein [Mass/Vol] 7.6 g/dL Normal 6.3-8.0 [facility] Comment on above: Order Comment: Speci men Type: BLOOD SPECIMENOrdering Facility: [facility] Address: [address] [place] [address] Performed By: #### 2 [id number] ####[facility] LABIA [id number] [address] [id number] [address] [place] C4 COMPLEMENTon 08-20-2024 Complement C4 [Mass/Vol] 32 mg/dL 13 - 46 mg/dL [facility] Complement C4 [Mass/Vol]on 0 08-20-2024 Interpretation and review of laboratory results Normal [facility] C4 SerPl-mCncon 08-19-2024 Complement C4 [Mass/Vol] 32 mg/dL Normal 13-46 [facility] Comment on above: Order Comment: Speci men Type: BLOOD SPECIMENOrdering Facility: [facility] Address: [address] [place] [address] Performed By: #### 4 [id number] ####[facility] LABCLIA [id number] [facility] [address] [place] CNOVon 08-19-2024 CNOV Normal [facility] CNOVon 07-31-2024 CNOV Normal [facility] Emergency Department Summary on 07-18-2024 Emergency Department Summary Normal [facility] Gastroenterology Visit Repor ton 06-04-2024 Gastroenterology Visit Report Normal [facility] CT Neck W contrast Tamara 07-1 * * *Final Report* * * DATE OF EXAM: Feb 08 2024 3:51PM [facility] 0024 - CTA NECK W IVCON / PROCEDURE REASON: Occlusion and stenosis of unspecified carotid artery * * * * Physician Interpretation * * * * EXAMINATION: CTA HEAD W IVCON, CTA NECK W IVCON HISTORY: Occlusion and stenosis of unspecified carotid artery - - - OtherCarotid stenosis - concern for such on MRA brain with rad recommending further e (accession [id number]), Carotid Stenosis (accession [id number]) - Carotid artery stenosis, Carotid stenosis - [...] Short segment mild narrowing of the LEFT SIGN ARTIST P2 segment No abrupt vessel occlusion, intraluminal filling defect, high-grade stenosis, or aneurysm in the posterior intracranial circulation. Opacified dural venous sinuses and major deep and superficial draining veins are patent. Cyber Defense Analyst (topogram) images: No additional findings. DIVISION OF RADIOLOGY Provider, [facility] - 02/08/2024 * * *Final Report* * * DATE OF EXAM: Feb 08 2024 3:51PM [facility] 0024 - CTA NECK W IVCON / PROCEDURE REASON: Occlusion and stenosis of unspecified carotid artery * * * * Physician Interpretation * * * * EXAMINATION: CTA HEAD W IVCON, CTA NECK W IVCON HISTORY: Occlusion and stenosis of unspecified carotid artery - - - OtherCarotid stenosis - concern for such on MRA brain with rad recommending further e (accession [id number]), Carotid Stenosis (accession [id number]) - Carotid artery stenosis, Carotid stenosis - [...] Short segment mild narrowing of the LEFT SIGN ARTIST P2 segment No abrupt vessel occlusion, intraluminal filling defect, high-grade stenosis, or aneurysm in the posterior intracranial circulation. Opacified dural venous sinuses and major deep and superficial draining veins are patent. Cyber [employer] Analyst (topogram) images: No additional findings. IMPRESSION IMPRESSION: [...] between software and imaging review: Not Applicable. Dependency Case Manager: DULCE Transcribe Date/Time: Feb 08 2024 3:55P Dictated by : CINDY DRAPER MD This examination was (more content not included)... [facility] CTA Head Arteries W contrast Tamara 02-08-2024 * * *Final Report* * * DATE OF EXAM: Feb 08 2024 3:51PM [facility] 0022 - CTA HEAD W IVCON / PROCEDURE REASON: Occlusion and stenosis of unspecified carotid artery * * * * Physician Interpretation * * * * EXAMINATION: CTA HEAD W IVCON, CTA NECK W IVCON HISTORY: Occlusion and stenosis of unspecified carotid artery - - - OtherCarotid stenosis - concern for such on MRA brain with rad recommending further e (accession [id number]), Carotid Stenosis (accession [id number]) - Carotid artery stenosis, Carotid stenosis - [...] Short segment mild narrowing of the LEFT SIGN ARTIST P2 segment No abrupt vessel occlusion, intraluminal filling defect, high-grade stenosis, or aneurysm in the posterior intracranial circulation. Opacified dural venous sinuses and major deep and superficial draining veins are patent. Cyber Defense Analyst (topogram) images: No additional findings. DIVISION OF RADIOLOGY Provider, [facility] - 02/08/2024 * * *Final Report* * * DATE OF EXAM: Feb 08 2024 3:51PM [facility] 0022 - CTA HEAD W IVCON / PROCEDURE REASON: Occlusion and stenosis of unspecified carotid artery * * * * Physician Interpretation * * * * EXAMINATION: CTA HEAD W IVCON, CTA NECK W IVCON HISTORY: Occlusion and stenosis of unspecified carotid artery - - - OtherCarotid stenosis - concern for such on MRA brain with rad recommending further e (accession [id number]), Carotid Stenosis (accession [id number]) - Carotid artery stenosis, Carotid stenosis - [...] Short segment mild narrowing of the LEFT SIGN ARTIST P2 segment No abrupt vessel occlusion, intraluminal filling defect, high-grade stenosis, or aneurysm in the posterior intracranial circulation. Opacified dural venous sinuses and major deep and superficial draining veins are patent. Cyber Defense Analyst (topogram) images: No additional findings. IMPRESSION IMPRESSION: [...] between software and imaging review: Not Applicable. Dependency Case Manager: DULCE Transcribe Date/Time: Feb 08 2024 3:55P Dictated by : CINDY DRAPER MD This examination was (more content not included)... [facility] No Panel Informationon 02-07 IMPRESSION: No [...] between software and imaging review: Not Applicable. Dependency Case Manager: DULCE Transcribe Date/Time: Feb 08 2024 3:55P Dictated by : CINDY DRAPER MD This examination was interpreted and the report reviewed and electronically signed by: CINDY DRAPER MD on Feb 08 2024 4:16PM [facility] DIVISION OF RADIOLOGY Radiology Study observation (narrative) [facility] No Panel InformationOrdered By: Ccf Provider on 02-08-2024 [facility] MR Brain WO contraston 02-05 * [...] gradient echo images. Intracranial and extracranial 3D xnow-qo-zjhjvh MRA with post-processing performed at the modality [...] gradient echo images. Intracranial and extracranial 3D iueh-hr-vxigad MRA with post-processing performed at the modality [...] be communicated with the ordering provider via [email or web address] staff message or phone message by [employer] within 2 business days of report finalization. --END OF FINDING-- Dependency Case Manager: PSCGlenn Transcribe Date/Time: Feb 06 2024 10:35A Dictated by : ILANA LAWRENCE MD This examination was interpreted and the report reviewed and electronically signed by: ILANA LAWRENCE MD on Feb 06 2024 10:43AM [facility] MRA Head vessels WO contrast on 02-06-2024 * * *Final Report* * * DATE OF EXAM: Feb 06 2024 10:00AM [facility] 0272 - MRA BRAIN WO IVCON / PROCEDURE REASON: Other symptoms and signs involving the nervous system * * * * Physician Interpretation * * * * EXAMINATION: MRA BRAIN WO IVCON, MRA CAROTID WO IVCON, MRI BRAIN WO IVCON CLINICAL HISTORY: Vertebrobasilar insufficiency TECHNIQUE: Routine noncontrast MRI protocol including diffusion and gradient echo images. Intracranial and extracranial 3D vmna-go-dwxiwi MRA with post-processing performed at the modality [...] DATE OF EXAM: Feb 06 2024 10:00AM [facility] 0272 - MRA BRAIN WO IVCON / PROCEDURE REASON: Other symptoms and signs involving the nervous system * * * * Physician Interpretation * * * * EXAMINATION: MRA BRAIN WO IVCON, MRA CAROTID WO IVCON, MRI BRAIN WO IVCON CLINICAL HISTORY: Vertebrobasilar insufficiency TECHNIQUE: Routine noncontrast MRI protocol including diffusion and gradient echo images. Intracranial and extracranial 3D xemh-qw-clmeqz MRA with post-processing performed at the modality [...] be communicated with the ordering provider via [email or web address] staff message or phone message by [employer] within 2 business days of report finalization. --END OF FINDING-- Dependency Case Manager: DULCE Transcribe Date/Time: Feb 06 2024 10:35A Dictated by : ILANA LAWRENCE MD This examination was interpreted and the report reviewed and electronically signed by: ILANA LAWRENCE MD on Feb 06 2024 10:43AM [facility] MRA Neck vessels WO contrast on 02-06-2024 * * *Final Report* * * DATE OF EXAM: Feb 06 2024 10:00AM [facility] 0275 - MRA CAROTID WO IVCON / PROCEDURE REASON: Other symptoms and signs involving the nervous system * * * * Physician Interpretation * * * * EXAMINATION: MRA BRAIN WO IVCON, MRA CAROTID WO IVCON, MRI BRAIN WO IVCON CLINICAL HISTORY: Vertebrobasilar insufficiency TECHNIQUE: Routine noncontrast MRI protocol including diffusion and gradient echo images. Intracranial and extracranial 3D lmjv-yg-ocolxt MRA with post-processing performed at the modality [...] DATE OF EXAM: Feb 06 2024 10:00AM [facility] 0275 - MRA CAROTID WO IVCON / PROCEDURE REASON: Other symptoms and signs involving the nervous system * * * * Physician Interpretation * * * * EXAMINATION: MRA BRAIN WO IVCON, MRA CAROTID WO IVCON, MRI BRAIN WO IVCON CLINICAL HISTORY: Vertebrobasilar insufficiency TECHNIQUE: Routine noncontrast MRI protocol including diffusion and gradient echo images. Intracranial and extracranial 3D cnce-jq-xvfomm MRA with post-processing performed at the modality [...] be communicated with the ordering provider via [email or web address] staff message or phone message by [employer] Support [employer] within 2 business days of report finalization. --END OF FINDING-- Dependency Case Manager: PSCB Transcribe Date/Time: Feb 06 2024 10:35A Dictated by : ILANA LAWRENCE MD This examination was interpreted and the report reviewed and electronically signed by: ILANA LAWRENCE MD on Feb 06 2024 10:43AM EST [facility] No Panel InformationOrdered By: Ccf Provider on 02-06-2024 Interpretation and review of laboratory results Abnormal [facility] Radiology Result ACTIONABLE Abnormal [facility] Comment on above: This report contains [...] contact your provider for the next steps. [facility] No Panel Informationon 02-05 IMPRESSION: No [...] be communicated with the ordering provider via [email or web address] staff message or phone message by [employer] within 2 business days of report finalization. --END OF FINDING-- Dependency Case Manager: PSCB Transcribe Date/Time: Feb 06 2024 10:35A Dictated by : ILANA LAWRENCE MD This examination was interpreted and the report reviewed and electronically signed by: ILANA LAWRENCE MD on Feb 06 2024 10:43AM EST DIVISION OF RADIOLOGY Radiology Study observation (narrative) [facility] CBC W Auto Differential pane l (Bld)on 10-17-2023 Basophils (Bld) [#/Vol] 0.05 10*3/uL <0.11 k/uL [facility] Basophils/100 WBC (Bld) 0.7 % [facility] Differential cell count method Nom (Bld) Auto [facility] Eosinophils (Bld) [#/Vol] 0.62 10*3/uL High <0.46 k/uL [facility] Eosinophils/100 WBC (Bld) 8.2 % [facility] Erythrocyte distribution width (RBC) [Ratio] 13.3 % 11.5 - 15.0 % [facility] Hematocrit (Bld) [Volume fraction] 42.4 % 39.0 - 51.0 % [facility] Hemoglobin (Bld) [Mass/Vol] 14.1 g/dL 13.0 - 17.0 g/dL [facility] Immature granulocytes (Bld) [#/Vol] <0.10 k/uL [facility] Immature granulocytes/100 WBC (Bld) 0.3 % [facility] Lymphocytes (Bld) [#/Vol] 0.83 10*3/uL Low 1.00 - 4.00 k/uL [facility] Lymphocytes/100 WBC (Bld) 11.0 % [facility] MCH (RBC) [Entitic mass] 34.3 pg High 26.0 - 34.0 pg [facility] MCHC (RBC) [Mass/Vol] 33.3 g/dL 30.5 - 36.0 g/dL [facility] MCV (RBC) [Entitic vol] 103.2 fL High 80.0 - 100.0 fL [facility] Monocytes (Bld) [#/Vol] 1.00 10*3/uL High <0.87 k/uL [facility] Monocytes/100 WBC (Bld) 13.2 % [facility] Neutrophils (Bld) [#/Vol] 5.05 10*3/uL 1.45 - 7.50 k/uL [facility] Neutrophils/100 WBC (Bld) 66.6 % [facility] Nucleated RBC (Bld) [#/Vol] <0.01 k/uL [facility] Nucleated RBC/100 WBC (Bld) [Ratio] 0.0 /100 WBC [facility] Platelet mean volume (Bld) [Entitic vol] 10.6 fL 9.0 - 12.7 fL [facility] Platelets (Bld) [#/Vol] 224 10*3/uL 150 - 400 k/uL [facility] RBC (Bld) [#/Vol] 4.11 10*6/uL Low 4.20 - 6.0 0 m/uL [facility] WBC (Bld) [#/Vol] 7.57 10*3/uL 3.70 - 11. 00 k/uL [facility] Urinalysis complete panel (U )on 10-17-2023 Bacteria LM.HPF (Urine sed) [#/Area] Negative Negative /HPF [facility] Bilirubin Ql (U) Negative Negative [facility] Clarity (Unsp spec) Clear Clear [facility] Color (U) Yellow Yellow [facility] Epithelial cells LM.HPF (Urine sed) [#/Area] None Seen [facility] Glucose Test strip (U) [Mass/Vol] Negative Negative [facility] Hemoglobin Ql (U) Negative Negative [facility] Hyaline casts (Urine sed) [#/Area] 0 /[LPF] 0 /LPF [facility] Ketones Ql (U) Negative Negative [facility] Leukocyte esterase Test strip Ql (U) 1+ Abnormal Negative [facility] Nitrite Ql (U) Negative Negative [facility] pH (U) 6.0 [pH] <8.5 [facility] Protein (U) [Mass/Vol] Negative Negative [facility] RBC LM.HPF (Urine sed) [#/Area] 0-2 /HPF 0-2 /HPF [facility] Specific gravity (U) [Rel density] 1.007 1.005 - 1.030 [facility] Urobilinogen Ql (U) 0.2 EU/dL 0.2-1.0 EU/dL [facility] WBC LM.HPF (Urine sed) [#/Area] 0-5 /HPF 0-5 /HPF [facility] Absolute lymphocyte countOrd ered By: Estefany Thrasher on 09-05-2023 Lymphocytes Auto (Unsp spec) [#/Vol] 0.60 10*3/uL 0.83-4.51 [facility] Automated lymphocyte count a s percentage of total leukocytesOrdered By: Estefany Thrasher on 09-05-2023 Lymphocytes/100 WBC Auto (Unsp spec) 8.2 % 19-41 [facility] Basophil percentageOrdered B y: Estefany Thrasher on 09-05-2023 Basophils/100 WBC (Bld) 0.5 % 0-1 [facility] Chloride [Moles/Vol] 110 mmol/L 98-107 [facility] Eosinophils/100 WBC (Bld) 7.1 % 0-5 [facility] Glucose [Mass/Vol] 97 mg/dL 74-106 [facility] Hemoglobin (Bld) [Mass/Vol] 14.3 g/dL 13.0-16.5 [facility] Monocytes/100 WBC (Bld) 12.3 % 0-10 [facility] Neutrophils (Bld) [#/Vol] 5.2 10*3/uL 2.0-7.7 [facility] Neutrophils/100 WBC (Bld) 71.5 % 47-70 [facility] Potassium [Moles/Vol] 4.6 mmol/L 3.5-5.1 [facility] Sodium [Moles/Vol] 140 mmol/L 136-145 [facility] WBC (Bld) [#/Vol] 7.3 10*3/uL 4.4-11.0 [facility] Determination of erythrocyte mean corpuscular volume (MCV)Ordered By: Estefany Thrasher on 09-05-2023 MCV (RBC) [Entitic vol] 103.5 fL 80-94 [facility] Erythrocyte distribution wid th ratioOrdered By: Estefany Thrasher on 09-05-2023 Erythrocyte distribution width (RBC) [Ratio] 12.9 % 11.6-14.6 [facility] Erythrocyte distribution wid th standard deviationOrdered By: Estefany Thrasher on 09-05-2023 Erythrocyte distribution width (RBC) [Entitic vol] 48.9 fL 35.1-43.9 [facility] Hematocrit Auto (Bld) [Volum e fraction]Ordered By: Estefany Thrasher on 09-05-2023 Hematocrit (Bld) [Volume fraction] 43.8 % 40-54 [facility] Immature granulocytes/100 WB C Auto (Bld)Ordered By: Estefany Thrasher on 09-05-2023 Immature granulocytes/100 WBC (Bld) 0.400 % 0.0-0.9 [facility] Comment on above: IG% - Immature Granu locytes (promyelocytes, myelocytes and metamyelocytes) > 1% indicates that a LEFT SHIFT is Present. Laboratory - Chemistry and C hemistry - challengeOrdered By: Estefany Thrasher on 09-05-2023 CO2 [Moles/Vol] 26.0 mmol/L 21.0-32.0 [facility] Natriuretic peptide B (Bld) [Mass/Vol] 140.8 pg/mL 0-100 [facility] Urea nitrogen/Creatinine [Mass ratio] 13.7 mg/mg 10-20 [facility] Laboratory - Hematology and Cell countsOrdered By: Estefany Thrasher on 09-05-2023 MCH (RBC) [Entitic mass] 33.8 pg 27.0-32.0 [facility] MCHC (RBC) [Mass/Vol] 32.6 g/dL 32-36 [facility] Nucleated RBC/100 WBC (Bld) [Ratio] 0 % 0-5 [facility] Platelet mean volume (Bld) [Entitic vol] 10.5 fL 6.2-12.0 [facility] Platelets (Bld) [#/Vol] 214 10*3/uL 150-450 [facility] No Panel InformationOrdered By: Estefany Thrasher on 09-05-2023 Estimated GFR (MDRD) Amer 110 mL/min >60 [facility] Comment on above: GFR Calc Estimated GFR (MDRD) Non-Af Amer 91 mL/min >60 [facility] Comment on above: Non- GFR Calc RBC Auto (Bld) [#/Vol]Ordere d By: Estefany Thrasher on 09-05-2023 RBC (Bld) [#/Vol] 4.23 10*6/uL 4.6-6.2 [facility] Serum or plasma calcium reid urement (mass/volume)Ordered By: Estefany Thrasher on 09-05-2023 Calcium [Mass/Vol] 9.7 mg/dL 8.5-10.1 [facility] Serum or plasma creatinine m easurement (mass/volume)Ordered By: Estefany Thrasher on 09-05-2023 Creatinine [Mass/Vol] 0.87 mg/dL 0.70-1.30 [facility] Comment on above: The validity of the calculated GFR & GFRAA in patients over 70 years has not been determined. Clinical correlation is essential. Serum or plasma urea nitroge n measurement (mass/volume)Ordered By: Estefany Thrasher on 09-05-2023 Urea nitrogen [Mass/Vol] 12 mg/dL 7-18 [facility] Thin prep Papanicolaou smear with manual screeningOrdered By: Estefany Thrasher on 09-05-2023 Thin prep Papanicolaou smear with manual screening 4 5-15 [facility] NAZARIO HUTTON ( ) 1950 Date Time Provider Department 08/10/23 VALERIANO CHOE [facility] During your visit today, we recorded the following information about you: Valeriano Choe MD 08/10/2023 11:14 AM Signed Let patient know his lumbar MRI shows significant changes contributing to his pain. I want to send him to the New neurologist at [facility] Dr. José Miguel Valverde. Order placed. The scan also showed several suspected cysts in the kidnies. Want to further eval with US. Order placed. 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] 03/15/2021 Elevated PSA [R97.20] 03/17/2021 [...] PINEDA STYLES on 08/10/23 Normal [facility] FOLATE SERUMon 04-21-2023 Folate [Mass/Vol] 18.2 ng/mL >4.7 ng/mL [facility] T4 FREE/FREE THYROXon 2022 Free T4 [Mass/Vol] 1.0 ng/dL 0.9 - 1.7 ng/dL [facility] TSH BLDon 04-21-2023 TSH Qn 3.260 m[IU]/L 0.270 - 4.200 mIU/L [facility] VITAMIN B12 BLOODon 04-21-20 Cobalamin (Vitamin B12) [Mass/Vol] 244 pg/mL 232 - 1,245 pg/mL [facility] CBC W/DIFF/PLT (EXTERNAL LAB RALF)on 12-13-2022 BASO ABSOLUTE [facility] [facility] Bas[facility]/100 WBC (Bld) 0.9 % [facility] EOS ABSOLUTE [facility] Eosinophils/100 WBC (Bld) 7.6 % [facility] Erythrocyte distribution width (RBC) [Ratio] 15.4 % 12.3 - 15.4 % [facility] Hematocrit (Bld) [Volume fraction] 46.7 % 37.5 - 51.0 % [facility] Hemoglobin (Bld) [Mass/Vol] 15 g/dL 12.6 - 17.7 g/dL [facility] Immature Gran % [facility] IMMATURE GRANS ABSOLUTE [facility] Lymphocytes (Bld) [#/Vol] 0.49 10*3/uL Abnormal 0.7 - 3.1 k/uL [facility] Lymphocytes/100 WBC (Bld) 7.3 % [facility] MCH 31.5 Pg 26.6 - 33 Pg [facility] MCHC (RBC) [Mass/Vol] 32.1 g/dL 31.5 - 35.7 g/dL [facility] MCV (RBC) [Entitic vol] 98.1 fL Abnormal 79 - 97 fL [facility] MONOCYTES ABSOLUTE [facility] Monocytes/100 WBC (Bld) 11.4 % [facility] NEUTROPHILS ABSOLUTE 4.9 k/uL 1.4 - 7 .0 k/uL [facility] Neutrophils/100 WBC (Bld) 72.5 % [facility] Platelets (Bld) [#/Vol] 205 10*3/uL 150 - 379 k/uL [facility] RBC (Bld) [#/Vol] 4.76 10*6/uL 4.14 - 5.8 0 M/uL [facility] WBC (Bld) [#/Vol] 6.7 10*3/uL 3.4 - 10.8 K/uL [facility] FERRITIN BLDon 12-13-2022 Ferritin [Mass/Vol] 64 ng/mL 26 - 388 [facility] IRON PANEL (OUTSIDE)on 12-13 Iron [Mass/Vol] 133 ug/dL 65 - 175 [facility] TIBC 40.1 15 - 55 [facility] Absolute lymphocyte countOrd ered By: Xochilt Casanova on 12-09-2022 Lymphocytes Auto (Unsp spec) [#/Vol] 0.49 10*3/uL 0.83-4.51 [facility] Basophil percentageOrdered B y: Xochilt Casanova on 12-09-2022 Basophils/100 WBC (Bld) 0.9 % 0-1 [facility] Eosinophils/100 WBC (Bld) 7.6 % 0-5 [facility] Neutrophils (Bld) [#/Vol] 4.9 10*3/uL 2.0-7.7 [facility] Neutrophils/100 WBC (Bld) 72.5 % 47-70 [facility] WBC (Bld) [#/Vol] 6.7 10*3/uL 4.4-11.0 [facility] Blood erythrocytes count (nu mber/volume)Ordered By: Xochilt Casanova on 12-09-2022 RBC (Bld) [#/Vol] 4.76 10*6/uL 4.6-6.2 [facility] Blood hemoglobin measurement (mass/volume)Ordered By: Xochilt Casanova on 12-09-2022 Hemoglobin (Bld) [Mass/Vol] 15.0 g/dL 13.0-16.5 [facility] Blood lymphocytes/100 leukoc ytesOrdered By: Xochilt Casanova on 12-09-2022 Lymphocytes/100 WBC (Bld) 7.3 % 19-41 [facility] Blood monocytes/100 leukocyt esOrdered By: Xochilt Casanova on 12-09-2022 Monocytes/100 WBC (Bld) 11.4 % 0-10 [facility] Blood platelet mean volumeOr dered By: Xochilt Casanova on 12-09-2022 Platelet mean volume (Bld) [Entitic vol] 9.5 fL 6.2-12.0 [facility] Determination of erythrocyte mean corpuscular volume (MCV)Ordered By: Xochilt Casanova on 12-09-2022 MCV (RBC) [Entitic vol] 98.1 fL 80-94 [facility] Hematocrit Auto (Bld) [Volum e fraction]Ordered By: Xochilt Casanova on 12-09-2022 Hematocrit (Bld) [Volume fraction] 46.7 % 40-54 [facility] Iron measurement (mass/mass) Ordered By: Xochilt Casanova on 12-09-2022 Iron (Unsp spec) [Mass/Mass] 133 ug/dL 65-175 [facility] Laboratory - Hematology and Cell countsOrdered By: Xochilt Casanova on 12-09-2022 Erythrocyte distribution width (RBC) [Entitic vol] 55.2 fL 35.1-43.9 [facility] Erythrocyte distribution width (RBC) [Ratio] 15.4 % 11.6-14.6 [facility] Immature granulocytes/100 WBC (Bld) 0.300 % 0.0-0.9 [facility] Comment on above: IG% - Immature Granu locytes (promyelocytes, myelocytes and metamyelocytes) > 1% indicates that a LEFT SHIFT is Present. MCH (RBC) [Entitic mass] 31.5 pg 27.0-32.0 [facility] Nucleated RBC/100 WBC (Bld) [Ratio] 0 % 0-5 [facility] MCHC Auto (RBC) [Mass/Vol]Or dered By: Xochilt Casanova on 12-09-2022 MCHC (RBC) [Mass/Vol] 32.1 g/dL 32-36 [facility] No Panel InformationOrdered By: Xochilt Casanova on 12-09-2022 Total Iron Binding Capacity 332 ug/dL 250-450 [facility] Platelets bldOrdered By: Andria Fraserne on 12-09-2022 Platelets (Bld) [#/Vol] 205 10*3/uL 150-450 [facility] Serum or plasma ferritin steve surement (mass/volume)Ordered By: Xochiltgladis Casanova on 12-09-2022 Ferritin [Mass/Vol] 64 ng/mL 26-388 [facility] Serum or plasma iron saturat ion measurement (mass fraction)Ordered By: Xochilt Casanova on 12-09-2022 Iron saturation [Mass fraction] 40.1 % 15.0-55.0 [facility] CNPNon 09-15-2022 CNPN Telephone ([facility]) -- NAZARIO HUTTON ( ) 1950 M Date Time Provider Department 09/15/22 VALERIANO CHOE [facility] During your visit today, we recorded the following information about you: Valeriano Choe MD 09/15/2022 11:54 AM Signed Let patient [...] walking. Patient needs labs faxed to his audio experience expert, Dr. Franklin Francois at [place] phone # [phone] Ganesh White MA 09/15/2022 2:34 PM Signed Left message for patient to contact office. Ganesh White MA Faxed information to cardio. LINA Gandara LPN 09/16/2022 2:37 PM Signed Patient returned call and went over results, notes from Dr Choe with understanding. Aware lab results were faxed to [employer] office. 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*12/06/[address] elevation myocardial infarction (*12/06/[address] [Z78.9] 04/18/2022 Advance directive discussed with patient [Z71.8*04/18/2022 NSTEMI (non-ST elevated myocardial infarction) *09/05/2022 Diverticulosis [K57.90] 09/05/2022 Alcohol abuse [F10.10] 09/14/2022 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.*09/14/2022 Situational depression [F43.21] 09/14/2022 Encounter Status:Closed by TEODORO ARAMBULA LPN on 09/16/22 Normal [facility] Comprehensive metabolic 2000 panelon 09-15-2022 Albumin [Mass/Vol] 3.4 g/dL Low 3.9 - 4.9 g/dL [facility] ALP [Catalytic activity/Vol] 104 U/L 38 - 113 U/L [facility] ALT [Catalytic activity/Vol] 11 U/L 10 - 54 U/L [facility] Anion gap [Moles/Vol] 7 mmol/L Low 9 - 18 mmol/L [facility] AST [Catalytic activity/Vol] 15 U/L 14 - 40 U/L [facility] Bilirubin [Mass/Vol] 0.4 mg/dL 0.2 - 1 .3 mg/dL [facility] Calcium [Mass/Vol] 8.6 mg/dL 8.5 - 10. 2 mg/dL [facility] Chloride [Moles/Vol] 107 mmol/L High 97 - 10 5 mmol/L [facility] CO2 [Moles/Vol] 25 mmol/L 22 - 30 mmol/L [facility] Creatinine [Mass/Vol] 0.81 mg/dL 0.73 - 1.22 mg/dL [facility] Estimated Glomerular Filtration Rate 94 mL/min/1.73m >=60 mL/min/1.73m [facility] Glucose [Mass/Vol] 98 mg/dL 74 - 99 mg/dL [facility] Potassium [Moles/Vol] 4.2 mmol/L 3.7 - 5.1 mmol/L [facility] Protein [Mass/Vol] 6.3 g/dL 6.3 - 8.0 g/dL [facility] Sodium [Moles/Vol] 139 mmol/L 136 - 144 mmol/L [facility] Urea nitrogen [Mass/Vol] 6 mg/dL Low 9 - 24 mg/dL [facility] Iron and Iron binding capaci ty panelon 09-15-2022 Iron [Mass/Vol] 23 ug/dL Low 41 - 186 ug/dL [facility] Iron binding capacity [Mass/Vol] 216 ug/dL Low 232 - 386 ug/dL [facility] Iron/TIBC [Molar ratio] 10.6 % Low 15.0 - 57.0 % [facility] LIPID PANEL, NONFASTINGon Cholesterol [Mass/Vol] 117 mg/dL <200 mg/dL [facility] HDL Cholesterol, Nonfasting 35 mg/dL Low >39 mg/dL [facility] LDL Cholesterol, Nonfasting 71 mg/dL <100 mg/dL [facility] LDL/HDL Ratio, Nonfasting 2.03 mg/dL <2.54 mg/dL [facility] Non HDL Cholesterol, Nonfasting 82 mg/dL <130 mg/dL [facility] Total Chol/HDL Ratio, Nonfasting 3.34 mg/dL <5.10 mg/dL [facility] Triglycerides, Nonfasting 55 mg/dL <150 mg/dL [facility] VLDL Cholesterol, Nonfasting 11 mg/dL <30 mg/dL [facility] CBC W Auto Differential pane l (Bld)on 09-14-2022 Basophils (Bld) [#/Vol] 0.04 10*3/uL <0.11 k/uL [facility] Basophils/100 WBC (Bld) 0.3 % [facility] Differential cell count method Nom (Bld) Auto [facility] Eosinophils (Bld) [#/Vol] 0.41 10*3/uL <0.46 k/uL [facility] Eosinophils/100 WBC (Bld) 3.6 % [facility] Erythrocyte distribution width (RBC) [Ratio] 16.9 % High 11.5 - 15.0 % [facility] Hematocrit (Bld) [Volume fraction] 29.3 % Low 39.0 - 51.0 % [facility] Hemoglobin (Bld) [Mass/Vol] 9.2 g/dL Low 13.0 - 17.0 g/dL [facility] Immature granulocytes (Bld) [#/Vol] 0.05 10*3/uL <0.10 k/uL [facility] Immature granulocytes/100 WBC (Bld) 0.4 % [facility] Lymphocytes (Bld) [#/Vol] 0.83 10*3/uL Low 1.00 - 4.00 k/uL [facility] Lymphocytes/100 WBC (Bld) 7.2 % [facility] MCH (RBC) [Entitic mass] 33.0 pg 26.0 - 34.0 pg [facility] MCHC (RBC) [Mass/Vol] 31.4 g/dL 30.5 - 36.0 g/dL [facility] MCV (RBC) [Entitic vol] 105.0 fL High 80.0 - 100.0 fL [facility] Monocytes (Bld) [#/Vol] 0.91 10*3/uL High <0.87 k/uL [facility] Monocytes/100 WBC (Bld) 7.9 % [facility] Neutrophils (Bld) [#/Vol] 9.27 10*3/uL High 1.45 - 7.50 k/uL [facility] Neutrophils/100 WBC (Bld) 80.6 % [facility] Nucleated RBC (Bld) [#/Vol] <0.01 k/uL [facility] Nucleated RBC/100 WBC (Bld) [Ratio] 0.0 /100 WBC [facility] Platelet mean volume (Bld) [Entitic vol] 10.8 fL 9.0 - 12.7 fL [facility] Platelets (Bld) [#/Vol] 323 10*3/uL 150 - 400 k/uL [facility] RBC (Bld) [#/Vol] 2.79 10*6/uL Low 4.20 - 6.0 0 m/uL [facility] WBC (Bld) [#/Vol] 11.51 10*3/uL High 3.70 - 11 .00 k/uL [facility] Absolute lymphocyte countOrd ered By: Dr. Crespo on 09-09-2022 Lymphocytes Auto (Unsp spec) [#/Vol] 0.55 10*3/uL 0.83-4.51 [facility] Basophil percentageOrdered B y: Dr. Crespo on 09-09-2022 Basophils/100 WBC (Bld) 0.5 % 0-1 [facility] Eosinophils/100 WBC (Bld) 8.0 % 0-5 [facility] Neutrophils (Bld) [#/Vol] 3.7 10*3/uL 2.0-7.7 [facility] Neutrophils/100 WBC (Bld) 67.3 % 47-70 [facility] WBC (Bld) [#/Vol] 5.5 10*3/uL 4.4-11.0 [facility] Blood erythrocytes count (nu mber/volume)Ordered By: Dr. Crespo on 09-09-2022 RBC (Bld) [#/Vol] 2.34 10*6/uL 4.6-6.2 [facility] Blood hemoglobin measurement (mass/volume)Ordered By: Dr. Crespo on 09-09-2022 Hemoglobin (Bld) [Mass/Vol] 7.6 g/dL 13.0-16.5 [facility] Blood lymphocytes/100 leukoc ytesOrdered By: Dr. Crespo on 09-09-2022 Lymphocytes/100 WBC (Bld) 10.0 % 19-41 [facility] Blood manual differential co mment interpretation (narrative result)Ordered By: Dr. Crespo on 09-09-2022 Manual differential comment Kamaljit (Bld) [Interp] SCANNED [facility] Comment on above: LYMPHOPENIA NOTED Blood monocytes/100 leukocyt esOrdered By: Dr. Crespo on 09-09-2022 Monocytes/100 WBC (Bld) 13.8 % 0-10 [facility] Blood platelet mean volumeOr dered By: Dr. Crespo on 09-09-2022 Platelet mean volume (Bld) [Entitic vol] 9.9 fL 6.2-12.0 [facility] Determination of erythrocyte mean corpuscular volume (MCV)Ordered By: Dr. Crespo on 09-09-2022 MCV (RBC) [Entitic vol] 104.3 fL 80-94 [facility] Hematocrit Auto (Bld) [Volum e fraction]Ordered By: Dr. Crespo on 09-09-2022 Hematocrit (Bld) [Volume fraction] 24.4 % 40-54 [facility] Laboratory - Hematology and Cell countsOrdered By: Dr. Crespo on 09-09-2022 Anisocytosis Ql (Bld) 1+ [facility] Erythrocyte distribution width (RBC) [Entitic vol] 67.8 fL 35.1-43.9 [facility] Erythrocyte distribution width (RBC) [Ratio] 17.7 % 11.6-14.6 [facility] Immature granulocytes/100 WBC (Bld) 0.400 % 0.0-0.9 [facility] Comment on above: IG% - Immature Granu locytes (promyelocytes, myelocytes and metamyelocytes) > 1% indicates that a LEFT SHIFT is Present. MCH (RBC) [Entitic mass] 32.5 pg 27.0-32.0 [facility] Nucleated RBC/100 WBC (Bld) [Ratio] 0 % 0-5 [facility] MCHC Auto (RBC) [Mass/Vol]Or dered By: Dr. Crespo on 09-09-2022 MCHC (RBC) [Mass/Vol] 31.1 g/dL 32-36 [facility] Macrocytes detectionOrdered By: Dr. Crespo on 09-09-2022 Macrocytes Ql (Bld) 1+ [facility] No Panel InformationOrdered By: Dr. Hagen on 09-09-2022 D-Dimer Quantitative (PE/DVT) 3.21 FEU/ug/m 0.27-0.49 [facility] Comment on above: D-Dimer ELEVATED (>0 .49): Additional studies and clinicalassessments are indicated to conclude diagnosis of:Deep Vein Thrombosis (DVT) or Pulmonary Embolism (PE)CRITICAL VALUE VERIFIED. CALLED TO [id number] Leslie Proctor.RESULTS READ BACK BY SAME . Platelets bldOrdered By: Dr. Crespo on 09-09-2022 Platelets (Bld) [#/Vol] 212 10*3/uL 150-450 [facility] Basophil percentageOrdered B y: Dr. Crespo on 09-08-2022 Chloride [Moles/Vol] 116 mmol/L 98-107 [facility] Glucose [Mass/Vol] 103 mg/dL 74-106 [facility] Comment on above: Fasting Glucose resu lt from 100 to 125 mg/dL suggests IMPAIRED HOMEOSTASIS per A.D.A. criteria. Potassium [Moles/Vol] 3.7 mmol/L 3.5-5.1 [facility] Sodium [Moles/Vol] 145 mmol/L 136-145 [facility] Laboratory - Chemistry and C hemistry - challengeOrdered By: Dr. Crespo on 09-08-2022 CO2 [Moles/Vol] 26.0 mmol/L 21.0-32.0 [facility] Urea nitrogen/Creatinine [Mass ratio] 3.1 mg/mg 10-20 [facility] No Panel InformationOrdered By: Dr. Crespo on 09-08-2022 Estimated Creatinine Clearance Calc 69.96 ml/min [facility] Estimated GFR (MDRD) Amer 155 mL/min >60 [facility] Comment on above: GFR Calc Estimated GFR (MDRD) Non-Af Amer 128 mL/min >60 [facility] Comment on above: Non- GFR Calc Serum or plasma calcium reid urement (mass/volume)Ordered By: Dr. Crespo on 09-08-2022 Calcium [Mass/Vol] 8.2 mg/dL 8.5-10.1 [facility] Serum or plasma creatinine m easurement (mass/volume)Ordered By: Dr. Crespo on 09-08-2022 Creatinine [Mass/Vol] 0.65 mg/dL 0.70-1.30 [facility] Comment on above: The validity of the calculated GFR & GFRAA in patients over 70 years has not been determined. Clinical correlation is essential. Serum or plasma urea nitroge n measurement (mass/volume)Ordered By: Dr. Crespo on 09-08-2022 Urea nitrogen [Mass/Vol] 2 mg/dL 7-18 [facility] Thin prep Papanicolaou smear with manual screeningOrdered By: Dr. Crespo on 09-08-2022 Thin prep Papanicolaou smear with manual screening 3 5-15 [facility] Thin prep Papanicolaou smear with manual screeningOrdered By: Dr. Crespo on 09-06-2022 Thin prep Papanicolaou smear with manual screening 1+ [facility] Laboratory - CoagulationOrde red By: Dr. Corbin on 09-04-2022 aPTT Coag (Bld) [Time] 40.0 s 24.1-36.2 [facility] Basophil percentageOrdered B y: Dr. Ramos on 09-03-2022 Bilirubin [Mass/Vol] 0.70 mg/dL 0.20-1.00 [facility] Comment on above: For patients on eltr ombopag therapy, use of Dimension [place] TBIL is not recommended. Protein [Mass/Vol] 5.6 g/dL 6.4-8.2 [facility] EP PanelOrdered By: Dr. Tiffanie paez on 09-03-2022 Gastrointestinal pathogens panel DEMARIO+probe (Stl) [facility] - Chemistry and C hemistry - challengeOrdered By: Dr. Ramos on 09-03-2022 ALP [Catalytic activity/Vol] 72 U/L 45-117 [facility] ALT [Catalytic activity/Vol] 16 U/L 16-61 [facility] Globulin (S) [Mass/Vol] 3.0 g/dL 2.2-4.2 [facility] No Panel InformationOrdered By: Dr. Corbin on 09-03-2022 Troponin I High Sensitivity 3730 pg/mL 3.0-78.0 [facility] Comment on above: Critical Result(s) C alled at: 21:16:59 09/03/2022 by: Nadine Coe to Lc. Results read back by same. Please Note: New Test Units and Gender Specific Reference Ranges. For more information see Policy Stat Procedure [place] High Sensitivity Troponin (TNIH) and attachments. Serum or plasma albumin reid urement (mass/volume)Ordered By: Dr. Ramos on 09-03-2022 Albumin [Mass/Vol] 2.6 g/dL 3.2-5.0 [facility] Serum or plasma albumin/glob ulin mass ratioOrdered By: Dr. Ramos on 09-03-2022 Albumin/Globulin [Mass ratio] 0.9 {ratio} 0.9-2.4 [facility] Stool lactoferrin detection by immunoassayOrdered By: Dr. Holguin on 09-03-2022 Lactoferrin IA Ql (Stl) [facility] Thin prep Papanicolaou smear with manual screeningOrdered By: Dr. Ramos on 09-03-2022 Thin prep Papanicolaou smear with manual screening 20 U/L 15-37 [facility] Whole blood hemoglobin A1c/t otal hemoglobin ratio (mass fraction)Ordered By: Dr. Ramos on 09-03-2022 HbA1c (Bld) [Mass fraction] % 3.8-5.6 [facility] Comment on above: Normal < 5.7 % Predi abetic 5.7 - 6.4 % Diabetic >or= 6.5 % Please note range changes. Basophil percentageOrdered B y: Dr. Ramos on 09-02-2022 Basophil percentage 3.7 mg/dL 2.5-4.9 [facility] Direct bilirubinOrdered By: Dr. Segal on 09-02-2022 Bilirubin.direct [Mass/Vol] 0.18 mg/dL 0.00-0.30 [facility] INR in Blood by Coagulation assayOrdered By: Dr. Segal on 09-02-2022 INR Coag (Bld) [Relative time] 1.2 {INR} [facility] - Chemistry and C hemistry - challengeOrdered By: Dr. Ramos on 09-02-2022 Magnesium [Mass/Vol] 2.2 mg/dL 1.6-2.6 [facility] - CoagulationOrde red By: Dr. Segal on 09-02-2022 PT Coag (PPP) [Time] 14.4 s 11.7-14.9 [facility] Serum procalcitonin measurem entOrdered By: Dr. Ramos on 09-02-2022 Procalcitonin [Mass/Vol] 0.18 ng/mL 0.00-0.09 [facility] Comment on above: A procalcitonin (PCT [...] Basophil, Absolute 0.0 10 3/mcL Normal 0.0-0.3 [facility] ([place]) Comment on above: Performed By: #### G SANDRA HARPER #### [facility] [address] [place] [id number] Basophils/100 WBC (Bld) 0.7 % Normal 0.0-2.5 [facility] ([place]) Comment on above: Performed By: #### G FR, BMP #### [address] [address] Eosinophil, Absolute 0.6 10 3/mcL Normal 0.0-0.7 [facility] ([place]) Comment on above: Performed By: #### Fannie FR, BMP #### [address] [address] Eosinophils/100 WBC (Bld) 7.7 % High 0.0-6.0 [facility] ([place] Comment on above: Performed By: #### Fannie HARPER, BMP #### [address] [address] Lymphocyte, Absolute 0.9 10 3/mcL Normal 0.9-4.3 [facility] ([place]) Comment on above: Performed By: #### Fannie HARPER, BMP #### [address] [address] Lymphocytes/100 WBC (Bld) 11.6 % Low 20.0-40.0 [facility] ([place] Comment on above: Performed By: #### Fannie HARPER, BMP #### [address] [address] Monocyte, Absolute 1.0 10 3/mcL Normal 0.1-1.4 [facility] ([place]) Comment on above: Performed By: #### Fannie HARPER, BMP #### [address] [address] Monocytes/100 WBC (Bld) 13.5 % High 2.0-13.0 [facility] ([place] Comment on above: Performed By: #### Fannie HARPER, BMP #### [address] [address] Neutrophils/100 WBC (Bld) 66.5 % Normal 50.0-75.0 [facility] ([place] Comment on above: Performed By: #### Fannie HARPER, BMP #### [address] [address] .GFRon 01-27-2022 GFR >60 Normal [facility] ([place]) Comment on above: Result Comment: GFR Population [...] Performed By: #### Fannie HARPER, BMP #### [place] [address] GFR Non- >60 Normal [facility] ([place] Comment on above: Result Comment: GFR Population [...] Performed By: #### Fannie HARPER, BMP #### [place] [address] .MDWon 01-27-2022 Monocyte Distribution Width Not performed Normal 0.00-20.00 [facility] ([place]) Comment on above: Result Comment: MDW testing performed only on adult ER patients between the ages of 18-89 years. Performed By: #### Fannie HARPER, BMP #### [place] [address] .NEUABSon 01-27-2022 Neutrophil, Absolute 5.0 10 3/mcL Normal 2.3-8.1 [facility] ([place]) Comment on above: Performed By: #### Fannie HARPER, BMP #### [place] [address] BMPon 01-27-2022 BUN/Creatinine Ratio 16.9 ratio Normal 10.0-22.0 [facility] ([place]) Comment on above: Performed By: #### Fannie HARPER, BMP #### [address] [address] Calcium [Mass/Vol] 10.0 mg/dL Normal 8.7-10.4 [facility] ([place]) Comment on above: Performed By: #### Fannie HARPER, BMP #### [address] [address] Chloride [Moles/Vol] 108 mmol/L Normal 98-110 [facility] ([place]) Comment on above: Performed By: #### Fannie HARPER, BMP #### [address] [address] CO2 [Moles/Vol] 28 mmol/L Normal 22-32 [facility] ([place] Comment on above: Performed By: #### Fannie HARPER, BMP #### [place] [id number] Creatinine [Mass/Vol] 0.89 mg/dL Normal 0.60-1.40 [facility] ([place]) Comment on above: Performed By: #### Fannie HARPER, BMP #### [address] [address] Electrolyte Balance 6.0 mEq/L Normal 4.0-15.0 Pending sale to [facility] ([place]) Comment on above: Performed By: #### Fannie HARPER, BMP #### [address] [address] Glucose [Mass/Vol] 106 mg/dL Normal 82-115 [facility] ([place]) Comment on above: Performed By: #### Fannie HARPER, BMP #### [address] [address] Potassium [Moles/Vol] 4.3 mmol/L Normal 3.5-5.0 [facility] ([place]) Comment on above: Performed By: #### Fannie HARPER, BMP #### [place] [id number] Sodium [Moles/Vol] 142 mmol/L Normal 136-145 [facility] ([place]) Comment on above: Performed By: #### G , BMP #### [place] [address] Urea nitrogen [Mass/Vol] 15.0 mg/dL Normal 8.0-22.0 [facility] ([place] Comment on above: Performed By: #### G , BMP #### [place] [id number] CBCon 01-27-2022 Erythrocyte distribution width (RBC) [Ratio] 13.8 % Normal 11.5-15.5 [facility] ([place] Comment on above: Performed By: #### G , BMP #### [place] [id number] Hematocrit (Bld) [Volume fraction] 41.2 % Normal 40.0-52.0 [facility] ([place] Comment on above: Performed By: #### Fannie HARPER, BMP #### [place] [address] Hgb 14.1 G/dL Normal 13.0-17.5 [facility] ([place] Comment on above: Performed By: #### Fannie HARPER, BMP #### [address] [address] MCH (RBC) [Entitic mass] 34.8 pg High 27.0-33.0 [facility] ([place] Comment on above: Performed By: #### G , BMP #### [place] [address] MCHC 34.3 G/dL Normal 32.0-36.0 [facility] ([place] Comment on above: Performed By: #### G FR, BMP #### [place] [id number] MCV (RBC) [Entitic vol] 101.7 fL High 81.0-100.0 [facility] ([place] Comment on above: Performed By: #### G FR, BMP #### [place] [id number] Platelet 236 10 3/mcL Normal 150-450 [facility] ([place]) Comment on above: Performed By: #### G FR, BMP #### [facility] [address] [place] [id number] Platelet mean volume (Bld) [Entitic vol] 8.1 fL Normal 6.4-10.5 [facility] ([place]) Comment on above: Performed By: #### G FR, BMP #### [address] [address] RBC 4.05 10 6/mcL Low 4.50-6.00 [facility] ([place]) Comment on above: Performed By: #### G FR, BMP #### [facility] [address] [place] [id number] WBC 7.4 10 3/mcL Normal 4.5-10.8 [facility] ([place]) Comment on above: Performed By: #### G FR, BMP #### [address] [address] LABORATORYOrdered By: SYSTEM SYSTEM on 01-27-2022 Basophils [...] Invalid Interpretation Code 0.0 - 6.0 % Workflow SS Erythrocyte distribution width (RBC) [Ratio] [...] Invalid Interpretation Code 40.0 - 52.0 % Workflow SS Hemoglobin (Bld) [Mass/Vol] 14.1 G/dL [...] 3.5 - 5.0 mEq/L AH ADM SS RBC (Bld) [#/Vol] 4.05 106/mcL Invalid Interpretation Code 4.50 - 6.00 10^6/mcL AH Workflow SS Sodium [Moles/Vol] 142 mmol/L Invalid [...] Invalid Interpretation Code 0.00 - 0.27 10^3/mcL Remisol SS Basophils/100 WBC (Bld) 1.0 % [...] Protein Negative Invalid Interpretation Code Negativemg/d L Auto Urine SS UA Spec Grav <=1.005 *ABN* (11/30/21 6:02 PM) Invalid Interpretation Code 1.006-1.029 Auto Urine SS UA Specimen Type Clean Catch (11/30/21 6:02 PM) Invalid Interpretation Code Auto Urine SS UA Urobilinogen 0.2 E.U./dL Invalid Interpretation Code 0.2-1.0E.U./ dL Auto Urine SS LABORATORYOrdered By: Janette Tirado [...] [pH] Invalid Interpretation Code 7.380 - 7.460 AH Auto Chem SS LABORATORYOrdered By: SYSTEM SYSTEM [...] 8 - 34 U/L AH ADM SS Basophils/100 WBC (Bld) 0.7 % Invalid Interpretation Code 0.0 - 2.5 % Remisol SS Basophils/100 WBC (Bld) 0.6 % [...] Invalid Interpretation Code 4.0 - 6.0 % AH Auto Chem SS Hematocrit (Bld) [Volume fraction] 40.7 % Invalid Interpretation Code 40.0 - 52.0 % AH Remisol SS Hematocrit (Bld) [Volume fraction] 40.4 % Invalid Interpretation Code 40.0 - 52.0 % AH Remisol SS Hemoglobin (Bld) [Mass/Vol] 13.9 G/dL [...] Chemistry and C hemistry - challengeOrdered By: [facility] on 11-30-2021 CO2 [Moles/Vol] 26 mmol/L Invalid Interpretation Code 22 - 32 mEq/L AH ADM SS Sodium [Moles/Vol] 138 mmol/L Invalid Interpretation Code 136 - 145 mEq/L AH ADM SS Laboratory - Hematology and Cell countsOrdered By: [facility] on 11-30-2021 Basophils (Bld) [#/Vol] 0.10 103/mcL [...] 6.00 10^6/mcL AH Remisol SS LABORATORYOrdered By: [employer] SYSTEM on 11-29-2021 Albumin BCP dye [Mass/Vol] [...] Code 0.20 - 1.20 mg/dL ADM SS Cholesterol [Mass/Vol] 153 mg/dL Invalid Interpretation Code 50 - 199 mg/dL ADM SS GFR/1.73 sq M.predicted among blacks [...] Time Vital Sign Value Performing Clinician Facility 05-08-2025 12:43-0400 Body height 177.[address] Valeriano Choe MD Work Phone: 5(403)100-663876 [place] [address] 05-08-2025 12:43-0400 Body mass index (BMI) [Ratio] 31.2 kg/m2 Dr. Valeriano Choe MD Work Phone: 6(765)296-704776 [place] [address] 05-08-2025 12:43-0400 Body weight 98.[address] Valeriano Choe MD Work Phone: 0(610)830-129576 [place] [address] 05-08-2025 12:43-0400 Diastolic blood pressure 79 mm[Hg] Dr. Valeriano Choe MD Work Phone: 1(380)466-959876 [place] [address] 05-08-2025 12:43-0400 Heart rate 92 /min Dr. Valeriano Choe MD Work Phone: 3(279)030-335276 [place] [address] 05-08-2025 12:43-0400 Respiratory rate 18 /min Dr. Valeriano Choe MD Work Phone: 2(278)817-887076 [place] [address] 05-08-2025 12:43-0400 SaO2% (BldA) [Mass fraction] 93 % Dr. Valeriano Choe MD Work Phone: 4(733)475-434976 [place] [address] 05-08-2025 12:43-0400 Systolic blood pressure 128 mm[Hg] Dr. Valeriano Choe MD Work Phone: 0(323)159-697776 [place] [address] 03-20-2025 07:55-0400 Body temperature 97.7 [degF] Dr. Valeriano Choe MD Work Phone: 0(523)470-521176 [place] [address] 03-20-2025 07:55-0400 Diastolic blood pressure 66 mm[Hg] Dr. Valeriano Choe MD Work Phone: 0(634)715-926476 [place] [address] 03-20-2025 07:55-0400 Heart rate 69 /min Dr. Valeriano Choe MD Work Phone: 8(223)835-495276 [place] [address] 03-20-2025 07:55-0400 Respiratory rate 16 /min Dr. Valeriano Choe MD Work Phone: 7(155)401-838076 [place] [address] 03-20-2025 07:55-0400 SaO2% (BldA) [Mass fraction] 94 % Dr. Valeriano Choe MD Work Phone: 0(836)677-044576 [place] [address] 03-20-2025 07:55-0400 Systolic blood pressure 102 mm[Hg] Dr. Valeriano Choe MD Work Phone: 4(499)279-706076 [place] [address] 03-20-2025 07:45-0400 Inhaled oxygen flow rate 2 L/min Dr. Valeriano Choe MD Work Phone: 4(477)607-331876 [place] [address] 03-20-2025 06:32-0400 Body height 177.[address] Valeriano Choe MD Work Phone: 6(205)596-978176 [place] [address] 03-20-2025 06:32-0400 Body mass index (BMI) [Ratio] 30.8 kg/m2 Dr. Valeriano Choe MD Work Phone: 5(543)016-067576 [place] [address] 03-20-2025 06:32-0400 Body weight 97.[address] Valeriano Choe MD Work Phone: 0(105)404-877076 [place] [address] 02-26-2025 14:01-0400 Body height 177.[address] Valeriano Choe MD Work Phone: 4(055)082-157876 [place] [address] 02-26-2025 14:01-0400 Body mass index (BMI) [Ratio] 30.9 kg/m2 Dr. Valeriano Choe MD Work Phone: 0(313)247-879576 [place] [address] 02-26-2025 14:01-0400 Body weight 97.[address] Valeriano Choe MD Work Phone: 5(078)423-300676 [place] [address] 02-26-2025 14:01-0400 Diastolic blood pressure 70 mm[Hg] Dr. Valeriano Choe MD Work Phone: [facility] 02-26-2025 14:01-0400 Heart rate 70 /min Dr. Valeriano Choe MD Work Phone: [facility] 02-26-2025 14:01-0400 SaO2% (BldA) [Mass fraction] 93 % Dr. Valeriano Choe MD Work Phone: [facility] 02-26-2025 14:01-0400 Systolic blood pressure 116 mm[Hg] Dr. Valeriano Choe MD Work Phone: [facility] 01-30-2025 11:35-0400 Body mass index (BMI) [Ratio] 30.9 kg/m2 Valeriano Choe MD Work Phone: [facility] 01-30-2025 11:35-0400 Body weight 96.8 kg Valeriano Choe MD Work Phone: [facility] 01-30-2025 11:35-0400 Diastolic blood pressure 64 mm[Hg] Valeriano Choe MD Work Phone: [facility] 01-30-2025 11:35-0400 Heart rate 68 /min Valeriano Choe MD Work Phone: [facility] 01-30-2025 11:35-0400 Respiratory rate 16 /min Valeriano Choe MD Work Phone: [facility] 01-30-2025 11:35-0400 Systolic blood pressure 104 mm[Hg] Valeriano Choe MD Work Phone: [facility] 01-29-2025 11:08-0400 Body height 177.[address] Valeriano Choe MD Work Phone: [facility] 01-29-2025 11:08-0400 Body mass index (BMI) [Ratio] 30.4 kg/m2 Dr. Valeriano Choe MD Work Phone: [facility] 01-29-2025 11:08-0400 Body temperature 98.3 [degF] Dr. Valeriano Choe MD Work Phone: 1(951)556-490376 [place] [address] 01-29-2025 11:08-0400 Body weight 96.[address] Valeriano Choe MD Work Phone: 4(338)038-079176 [place] [address] 01-29-2025 11:08-0400 Diastolic blood pressure 65 mm[Hg] Dr. Valeriano Choe MD Work Phone: 6(342)019-466876 [place] [address] 01-29-2025 11:08-0400 Heart rate 9 /min Dr. Valeriano Choe MD Work Phone: 8(656)939-342276 [place] [address] 01-29-2025 11:08-0400 Respiratory rate 16 /min Dr. Valeriano Choe MD Work Phone: 9(095)313-670176 [place] [address] 01-29-2025 11:08-0400 SaO2% (BldA) [Mass fraction] 96 % Dr. Valeriano Choe MD Work Phone: 0(255)012-102676 [place] [address] 01-29-2025 11:08-0400 Systolic blood pressure 100 mm[Hg] Dr. Valeriano Choe MD Work Phone: 6(055)780-562176 [place] [address] 01-25-2025 08:23-0400 Body temperature 98.4 [degF] Dr. Valeriano Choe MD Work Phone: 0(737)884-739776 [place] [address] 01-25-2025 08:23-0400 Diastolic blood pressure 85 mm[Hg] Dr. Valeriano Choe MD Work Phone: 0(340)103-151783 [place] [address] 01-25-2025 08:23-0400 Heart rate 68 /min Dr. Valeriano Choe MD Work Phone: 0(789)044-859976 [place] [address] 01-25-2025 08:23-0400 Respiratory rate 14 /min Dr. Valeriano Choe MD Work Phone: 8(057)613-620676 [place] [address] 01-25-2025 08:23-0400 SaO2% (BldA) [Mass fraction] 95 % Dr. Valeriano Choe MD Work Phone: 5(548)525-425783 [place] [address] 01-25-2025 08:23-0400 Systolic blood pressure 138 mm[Hg] Dr. Valeriano Choe MD Work Phone: 3(529)114-999776 [place] [address] 01-25-2025 03:48-0400 Body mass index (BMI) [Ratio] 30.5 kg/m2 Dr. Valeriano Choe MD Work Phone: 9(217)069-198576 [place] [address] 01-25-2025 03:48-0400 Body weight 96.[address] Valeriano Choe MD Work Phone: 5(278)606-387376 [place] [address] 01-24-2025 10:39-0400 Body height 177.[address] Valeriano Choe MD Work Phone: 4(944)409-541076 [place] [address] 01-23-2025 21:38-0400 Body temperature 98.1 [degF] Dr. Valeriano Choe MD Work Phone: 1(423)755-587176 [place] [address] 01-23-2025 21:38-0400 Diastolic blood pressure 87 mm[Hg] Dr. Valeriano Choe MD Work Phone: 1(428)639-066976 [place] [address] 01-23-2025 21:38-0400 Heart rate 70 /min Dr. Valeriano Choe MD Work Phone: 7(994)326-117676 [place] [address] 01-23-2025 21:38-0400 Respiratory rate 16 /min Dr. Valeriano Choe MD Work Phone: 2(247)559-960176 [place] [address] 01-23-2025 21:38-0400 SaO2% (BldA) [Mass fraction] 97 % Dr. Valeriano Choe MD Work Phone: 4(244)546-381076 [place] [address] 01-23-2025 21:38-0400 Systolic blood pressure 155 mm[Hg] Dr. Valeriano Choe MD Work Phone: 9(231)488-055976 [place] [address] 01-23-2025 19:30-0400 Body height 177.[address] Valeriano Choe MD Work Phone: 1(720)789-024676 [place] [address] 01-23-2025 19:30-0400 Body mass index (BMI) [Ratio] 29.9 kg/m2 Dr. Valeriano Choe MD Work Phone: [facility] 01-23-2025 19:30-0400 Body weight 94.[address] Valeriano Choe MD Work Phone: [facility] 01-01-2025 09:50-0400 Body mass index (BMI) [Ratio] 31.13 kg/m2 Suzanna Dawson PA-C Work Phone: [facility] 01-01-2025 09:50-0400 Body temperature 97.81 [degF] Suzanna Dawson PA-C Work Phone: [facility] 01-01-2025 09:50-0400 Body weight 97.52 kg Suzanna Dawson PA-C Work Phone: [facility] 01-01-2025 09:50-0400 Diastolic blood pressure 80 mm[Hg] Suzanna Dawson PA-C Work Phone: [facility] 01-01-2025 09:50-0400 Heart rate 72 /min Suzanna Dawson PA-C Work Phone: [facility] 01-01-2025 09:50-0400 Respiratory rate 18 /min Suzanna Dawson PA-C Work Phone: [facility] 01-01-2025 09:50-0400 SaO2% (BldA) [Mass fraction] 96 % Suzanna Dawson PA-C Work Phone: [facility] 01-01-2025 09:50-0400 Systolic blood pressure 122 mm[Hg] Suzanna Dawson PA-C Work Phone: [facility] 12-30-2024 09:35-0400 Body height [address] Valeriano Choe MD Work Phone: [facility] 12-30-2024 09:35-0400 Body weight 95.[address] Valeriano Choe MD Work Phone: [facility] 12-30-2024 08:00-0400 Body temperature 98.1 [degF] Dr. Valeriano Choe MD Work Phone: 1(772)498-877343 [place] [address] 12-30-2024 08:00-0400 Diastolic blood pressure 85 mm[Hg] Dr. Valeriano Choe MD Work Phone: 0(979)057-774976 [place] [address] 12-30-2024 08:00-0400 Heart rate 73 /min Dr. Valeriano Choe MD Work Phone: 7(408)115-601376 [place] [address] 12-30-2024 08:00-0400 Respiratory rate 18 /min Dr. Valeriano Choe MD Work Phone: 0(938)850-621276 [place] [address] 12-30-2024 08:00-0400 SaO2% (BldA) [Mass fraction] 95 % Dr. Valeriano Choe MD Work Phone: 1(006)512-025876 [place] [address] 12-30-2024 08:00-0400 Systolic blood pressure 159 mm[Hg] Dr. Valeriano Choe MD Work Phone: 5(060)173-439676 [place] [address] 12-30-2024 05:56-0400 Body mass index (BMI) [Ratio] 30.2 kg/m2 Dr. Valeriano Choe MD Work Phone: 7(517)923-716276 [place] [address] 12-29-2024 11:00-0400 Inhaled oxygen flow rate 2 L/min Dr. Valeriano Choe MD Work Phone: 7(286)014-940676 [place] [address] 12-29-2024 09:00-0400 Inhaled oxygen concentration 30 % Dr. Valeriano Choe MD Work Phone: 2(630)892-350976 [place] [address] 12-27-2024 15:15-0400 Diastolic blood pressure 67 mm[Hg] Dr. Valeriano Choe MD Work Phone: 9(489)303-231976 [place] [address] 12-27-2024 15:15-0400 Heart rate 60 /min Dr. Valeriano Choe MD Work Phone: 0(889)039-046676 [place] [address] 12-27-2024 15:15-0400 Respiratory rate 14 /min Dr. Valeriano Choe MD Work Phone: 4(540)001-692576 [place] [address] 12-27-2024 15:15-0400 SaO2% (BldA) [Mass fraction] 97 % Dr. Valeriano Choe MD Work Phone: 6(026)018-810176 [place] [address] 12-27-2024 15:15-0400 Systolic blood pressure 100 mm[Hg] Dr. Valeriano Choe MD Work Phone: 8(654)023-491676 [place] [address] 12-27-2024 14:58-0400 Body temperature 99 [degF] Dr. Valeriano Choe MD Work Phone: 3(782)180-987176 [place] [address] 12-27-2024 13:42-0400 Inhaled oxygen concentration 35 % Dr. Valeriano Choe MD Work Phone: 9(181)803-028376 [place] [address] 12-27-2024 13:13-0400 Body height 177.[address] Valeriano Choe MD Work Phone: 5(753)347-251776 [place] [address] 12-27-2024 13:13-0400 Body mass index (BMI) [Ratio] 30 kg/m2 Dr. Valeriano Choe MD Work Phone: 6(592)623-112376 [place] [address] 12-27-2024 13:13-0400 Body weight 95.[address] Valeriano Choe MD Work Phone: 2(735)586-721076 [place] [address] 12-23-2024 14:11-0400 Body mass index (BMI) [Ratio] 30.14 kg/m2 Patria Butler Jr., MD Work Phone: 0(879)991-725795 [place] [address] 12-23-2024 14:11-0400 Body weight 94.44 kg Patria Butler Jr., MD Work Phone: 7(452)820-344695 [place] [address] 12-23-2024 14:11-0400 Diastolic blood pressure 82 mm[Hg] Patria Butler Jr., MD Work Phone: 8(811)686-588695 [place] [address] 12-23-2024 14:11-0400 Heart rate 68 /min Patria Butler Jr., MD Work Phone: 4(954)167-472995 [place] [address] 12-23-2024 14:11-0400 Respiratory rate 18 /min Patria Butler Jr., MD Work Phone: 4(871)824-971395 [place] [address] 12-23-2024 14:11-0400 SaO2% (BldA) [Mass fraction] 94 % Patria Butler Jr., MD Work Phone: 8(341)426-324795 [place] [address] 12-23-2024 14:11-0400 Systolic blood pressure 128 mm[Hg] Patria Butler Jr., MD Work Phone: [facility] 11-05-2024 07:36-0400 Body mass index (BMI) [Ratio] 29.8 kg/m2 Dr. Valeriano Choe MD Work Phone: [facility] 11-05-2024 07:36-0400 Body weight 94.[address] Valeriano Choe MD Work Phone: 4(256)994-170883 [place] [address] 11-05-2024 07:36-0400 Diastolic blood pressure 72 mm[Hg] Dr. Valeriano Choe MD Work Phone: 8(108)730-753683 [place] [address] 11-05-2024 07:36-0400 Heart rate 70 /min Dr. Valeriano Choe MD Work Phone: 9(988)243-808183 [place] [address] 11-05-2024 07:36-0400 Respiratory rate 18 /min Dr. Valeriano Choe MD Work Phone: [facility] 11-05-2024 07:36-0400 SaO2% (BldA) [Mass fraction] 95 % Dr. Valeriano Choe MD Work Phone: [facility] 11-05-2024 07:36-0400 Systolic blood pressure 113 mm[Hg] Dr. Valeriano Choe MD Work Phone: [facility] 11-01-2024 10:56-0400 Body mass index (BMI) [Ratio] 29.68 kg/m2 Ni Sauceda APRN.PATHOLOGY TECH Work Phone: [facility] 11-01-2024 10:56-0400 Body weight 93 kg Ni Sauceda APRN.PATHOLOGY TECH Work Phone: [facility] 11-01-2024 10:56-0400 Diastolic blood pressure 73 mm[Hg] Ni Sauceda APRN.PATHOLOGY TECH Work Phone: [facility] 11-01-2024 10:56-0400 Systolic blood pressure 129 mm[Hg] Ni Sauceda APRN.PATHOLOGY TECH Work Phone: [facility] 10-23-2024 13:09-0400 Body mass index (BMI) [Ratio] 29.97 kg/m2 Stephanie Masci DO Work Phone: [facility] 10-23-2024 13:09-0400 Body temperature 98.6 [degF] Stephanie Masci DO Work Phone: [facility] 10-23-2024 13:09-0400 Body weight 93.89 kg Stephanie Masci DO Work Phone: [facility] 10-23-2024 13:09-0400 Diastolic blood pressure 76 mm[Hg] Stephanie Masci DO Work Phone: [facility] 10-23-2024 13:09-0400 Heart rate 83 /min Stephanie Masci DO Work Phone: [facility] 10-23-2024 13:09-0400 SaO2% (BldA) [Mass fraction] 97 % Stephanie Masci DO Work Phone: [facility] 10-23-2024 13:09-0400 Systolic blood pressure 126 mm[Hg] Stephanie Masci DO Work Phone: [facility] 09-25-2024 14:07-0500 Body height 177 cm Stephanie Masci DO Work Phone: [facility] 09-25-2024 14:07-0500 Body mass index (BMI) [Ratio] 30.55 kg/m2 Stephanie Masci DO Work Phone: [facility] 09-25-2024 14:07-0500 Body temperature 98.8 [degF] Stephanie Masci DO Work Phone: [facility] 09-25-2024 14:07-0500 Body weight 95.71 kg Stephanie Masci DO Work Phone: [facility] 09-25-2024 14:07-0500 Diastolic blood pressure 83 mm[Hg] Stephanie Masci DO Work Phone: [facility] 09-25-2024 14:07-0500 Heart rate 79 /min Stephanie Masci DO Work Phone: [facility] 09-25-2024 14:07-0500 SaO2% (BldA) [Mass fraction] 96 % Stephanie Stallings DO Work Phone: [facility] 09-25-2024 14:07-0500 Systolic blood pressure 134 mm[Hg] Stephanie Stallings DO Work Phone: [facility] 09-19-2024 14:11-0500 Body height 177.[address] Valeriano Choe MD Work Phone: 1(013)006-502883 [place] [address] 09-19-2024 14:11-0500 Body mass index (BMI) [Ratio] 29.9 kg/m2 Dr. Valeriano Choe MD Work Phone: 3(526)301-225883 [place] [address] 09-19-2024 14:11-0500 Body weight 94.[address] Valeriano Choe MD Work Phone: 2(671)289-794583 [place] [address] 09-19-2024 14:11-0500 Diastolic blood pressure 70 mm[Hg] Dr. Valeriano Choe MD Work Phone: 0(224)466-481383 [place] [address] 09-19-2024 14:11-0500 Heart rate 63 /min Dr. Valeriano Choe MD Work Phone: 8(449)228-539183 [place] [address] 09-19-2024 14:11-0500 SaO2% (BldA) [Mass fraction] 97 % Dr. Valeriano Choe MD Work Phone: 4(724)061-798183 [place] [address] 09-19-2024 14:11-0500 Systolic blood pressure 130 mm[Hg] Dr. Valeriano Choe MD Work Phone: 4(959)932-928983 [place] [address] 08-30-2024 15:08-0500 Body mass index (BMI) [Ratio] 30.57 kg/m2 Patria Butler Jr., MD Work Phone: [facility] 08-30-2024 15:08-0500 Body weight 93.08 kg Patria Butler Jr., MD Work Phone: [facility] 08-30-2024 15:08-0500 Diastolic blood pressure 84 mm[Hg] Patria Butler Jr., MD Work Phone: [facility] 08-30-2024 15:08-0500 Heart rate 64 /min Patria Butler Jr., MD Work Phone: [facility] 08-30-2024 15:08-0500 SaO2% (BldA) [Mass fraction] 95 % Patria Butler Jr., MD Work Phone: [facility] 08-30-2024 15:08-0500 Systolic blood pressure 145 mm[Hg] Patria Butler Jr., MD Work Phone: [facility] 08-19-2024 13:14-0500 Body mass index (BMI) [Ratio] 30.71 kg/m2 Amudha Pazhanisamy DO Work Phone: [facility] 08-19-2024 13:14-0500 Body weight 93.5 kg Amudha Pazhanisamy DO Work Phone: [facility] 08-19-2024 13:14-0500 Diastolic blood pressure 61 mm[Hg] Amudha Pazhanisamy DO Work Phone: [facility] 08-19-2024 13:14-0500 Heart rate 55 /min Amudha Pazhanisamy DO Work Phone: [facility] 08-19-2024 13:14-0500 SaO2% (BldA) [Mass fraction] 97 % Amudha Pazhanisamy DO Work Phone: [facility] 08-19-2024 13:14-0500 Systolic blood pressure 95 mm[Hg] Amudha Pazhanisamy DO Work Phone: [facility] 07-31-2024 19:01-0500 Body mass index (BMI) [Ratio] 31.13 kg/m2 Valeriano Choe MD Work Phone: [facility] 07-31-2024 19:01-0500 Body weight 94.8 kg Valeriano Choe MD Work Phone: [facility] 07-31-2024 19:01-0500 Diastolic blood pressure 74 mm[Hg] Valeriano Choe MD Work Phone: 8(031)116-025995 [place] [address] 07-31-2024 19:01-0500 Heart rate 68 /min Valeriano Choe MD Work Phone: [facility] 07-31-2024 19:01-0500 Respiratory rate 16 /min Valeriano Choe MD Work Phone: 7(376)346-892495 [place] [address] 07-31-2024 19:01-0500 Systolic blood pressure 126 mm[Hg] Valeriano Choe MD Work Phone: 2(671)823-116703 [place] [address] 07-18-2024 14:16-0500 Body temperature 98.5 [degF] Dr. Valeriano Choe MD Work Phone: 7(503)471-346576 [place] [address] 07-18-2024 14:16-0500 Diastolic blood pressure 79 mm[Hg] Dr. Valeriano Choe MD Work Phone: 8(737)936-375376 [place] [address] 07-18-2024 14:16-0500 Heart rate 73 /min Dr. Valeriano Choe MD Work Phone: 0(607)664-927176 [place] [address] 07-18-2024 14:16-0500 Respiratory rate 19 /min Dr. Valeriano Choe MD Work Phone: 7(270)225-813576 [place] [address] 07-18-2024 14:16-0500 SaO2% (BldA) [Mass fraction] 96 % Dr. Valeriano Choe MD Work Phone: 0(040)543-907283 [place] [address] 07-18-2024 14:16-0500 Systolic blood pressure 155 mm[Hg] Dr. Valeriano Choe MD Work Phone: 2(920)178-309476 [place] [address] 07-18-2024 10:16-0500 Body mass index (BMI) [Ratio] 31.2 kg/m2 Dr. Valeriano Choe MD Work Phone: 7(581)078-309476 [place] [address] 07-18-2024 10:16-0500 Body weight 98.[address] Valeriano Choe MD Work Phone: 1(653)562-198276 [place] [address] 05-29-2024 12:54-0500 Body mass index (BMI) [Ratio] 30.54 kg/m2 Suzanna Dawson PA-C Work Phone: [facility] 05-29-2024 12:54-0500 Body temperature 97.2 [degF] Suzanna Dawson PA-C Work Phone: [facility] 05-29-2024 12:54-0500 Body weight 92.99 kg Suzanna Dawson PA-C Work Phone: [facility] 05-29-2024 12:54-0500 Diastolic blood pressure 56 mm[Hg] Suzanna Dawson PA-C Work Phone: [facility] 05-29-2024 12:54-0500 Heart rate 66 /min Suzanna Dawson PA-C Work Phone: [facility] 05-29-2024 12:54-0500 Respiratory rate 18 /min Suzanna Dawson PA-C Work Phone: [facility] 05-29-2024 12:54-0500 SaO2% (BldA) [Mass fraction] 95 % Suzanna Dawson PA-C Work Phone: [facility] 05-29-2024 12:54-0500 Systolic blood pressure 120 mm[Hg] Suzanna Dawson PA-C Work Phone: [facility] 05-01-2024 13:00-0400 Body height 174.5 cm Suzanna Dawson PA-C Work Phone: [facility] 05-01-2024 13:00-0400 Body mass index (BMI) [Ratio] 29.35 kg/m2 Suzanna Dawson PA-C Work Phone: [facility] 05-01-2024 13:00-0400 Body temperature 97.5 [degF] Suzanna Dawson PA-C Work Phone: [facility] 05-01-2024 13:00-0400 Body weight 89.36 kg Suzanna Dawson PA-C Work Phone: [facility] 05-01-2024 13:00-0400 Diastolic blood pressure 62 mm[Hg] Suzanna Dawson PA-C Work Phone: [facility] 05-01-2024 13:00-0400 Heart rate 77 /min Suzanna Dawson PA-C Work Phone: [facility] 05-01-2024 13:00-0400 Respiratory rate 18 /min Suzanna Dawson PA-C Work Phone: [facility] 05-01-2024 13:00-0400 SaO2% (BldA) [Mass fraction] 96 % Suzanna Dawson PA-C Work Phone: [facility] 05-01-2024 13:00-0400 Systolic blood pressure 100 mm[Hg] Suzanna Dawson PA-C Work Phone: [facility] 04-04-2024 11:42-0400 Body mass index (BMI) [Ratio] 31.02 kg/m2 Ni Sauceda APRN.PATHOLOGY TECH Work Phone: [facility] 04-04-2024 11:42-0400 Body weight 92.53 kg Ni Sauceda APRN.PATHOLOGY TECH Work Phone: [facility] 04-04-2024 11:42-0400 Diastolic blood pressure 84 mm[Hg] Ni Sauceda APRN.PATHOLOGY TECH Work Phone: [facility] 04-04-2024 11:42-0400 Heart rate 58 /min Ni Sauceda APRN.PATHOLOGY TECH Work Phone: [facility] 04-04-2024 11:42-0400 Respiratory rate 14 /min Ni Sauceda APRN.PATHOLOGY TECH Work Phone: [facility] 04-04-2024 11:42-0400 Systolic blood pressure 155 mm[Hg] Ni Sauceda APRN.PATHOLOGY TECH Work Phone: [facility] 01-01-2024 16:56-0400 Diastolic blood pressure 80 mm[Hg] Patria Butler Jr., MD Work Phone: [facility] Comment on above: LT arm adult cuff sitting 01-01-2024 16:56-0400 Systolic blood pressure 142 mm[Hg] Patria Butler Jr., MD Work Phone: [facility] Comment on above: LT arm adult cuff sitting 01-01-2024 15:40-0400 Body mass index (BMI) [Ratio] 31.38 kg/m2 Patria Butler Jr., MD Work Phone: [facility] 01-01-2024 15:40-0400 Body weight 93.62 kg Patria Butler Jr., MD Work Phone: [facility] 01-01-2024 15:40-0400 Heart rate 76 /min Patria Butler Jr., MD Work Phone: [facility] 01-01-2024 15:40-0400 Respiratory rate 16 /min Patria Butler Jr., MD Work Phone: [facility] 01-01-2024 15:40-0400 SaO2% (BldA) [Mass fraction] 96 % Patria Butler Jr., MD Work Phone: [facility] 09-05-2023 10:46-0500 Body height 177.[address] Valeriano Choe Work Phone: [facility] 09-05-2023 10:46-0500 Body mass index (BMI) [Ratio] 29.9 kg/m2 Dr. Valeriano Choe Work Phone: [facility] 09-05-2023 10:46-0500 Body weight 94.[address] Valeriano Choe Work Phone: [facility] 09-05-2023 10:46-0500 Diastolic blood pressure 86 mm[Hg] Dr. Valeriano Choe Work Phone: [facility] 09-05-2023 10:46-0500 Heart rate 64 /min Dr. Valeriano Choe Work Phone: [facility] 09-05-2023 10:46-0500 Respiratory rate 18 /min Dr. Valeriano Cohe Work Phone: [facility] 09-05-2023 10:46-0500 SaO2% (BldA) [Mass fraction] 95 % Dr. Valeriano Choe Work Phone: [facility] 09-05-2023 10:46-0500 Systolic blood pressure 134 mm[Hg] Dr. Valeriano Choe Work Phone: [facility] 09-01-2023 10:41-0500 Body mass index (BMI) [Ratio] 29.6 kg/m2 Dr. Valeriano Choe Work Phone: [facility] 09-01-2023 10:41-0500 Body weight 93.[address] Valeriano Choe Work Phone: [facility] 05-18-2023 10:39-0400 Body weight 91.76 kg Valeriano Choe MD Work Phone: [facility] 05-18-2023 10:39-0400 Diastolic blood pressure 80 mm[Hg] Valeriano Choe MD Work Phone: [facility] 05-18-2023 10:39-0400 Heart rate 58 /min Valeriano Choe MD Work Phone: [facility] 05-18-2023 10:39-0400 SaO2% (BldA) [Mass fraction] 96 % Valeriano Choe MD Work Phone: [facility] 05-18-2023 10:39-0400 Systolic blood pressure 122 mm[Hg] Valeriano Choe MD Work Phone: [facility] 04-20-2023 12:38-0400 Diastolic blood pressure 81 mm[Hg] Valeriano Choe MD Work Phone: [facility] 04-20-2023 12:38-0400 Heart rate 53 /min Valeriano Choe MD Work Phone: [facility] 04-20-2023 12:38-0400 Systolic blood pressure 152 mm[Hg] Valeriano Choe MD Work Phone: [facility] 04-20-2023 11:22-0400 Body height 174.6 cm Valeriano Choe MD Work Phone: [facility] 04-20-2023 11:22-0400 Body weight 91.17 kg Valeriano Choe MD Work Phone: 0(298)140-696495 [place] [address] 04-20-2023 11:22-0400 Respiratory rate 16 /min Valeriano Choe MD Work Phone: 9(602)558-251503 [place] [address] 12-09-2022 11:00-0400 Body height 177.[address] Valeriano Choe Work Phone: 4(000)387-701676 [place] [address] 12-09-2022 11:00-0400 Body mass index (BMI) [Ratio] 27.6 kg/m2 Dr. Valeriano Choe Work Phone: 4(453)149-525776 [place] [address] 12-09-2022 11:00-0400 Body weight 87.[address] Valeriano Choe Work Phone: 2(803)369-603776 [place] [address] 12-09-2022 11:00-0400 Diastolic blood pressure 71 mm[Hg] Dr. Valeriano Choe Work Phone: 2(682)091-271976 [place] [address] 12-09-2022 11:00-0400 Heart rate 59 /min Dr. Valeriano Choe Work Phone: 9(638)432-460176 [place] [address] 12-09-2022 11:00-0400 Respiratory rate 16 /min Dr. Valeriano Choe Work Phone: 2(984)544-213576 [place] [address] 12-09-2022 11:00-0400 Systolic blood pressure 141 mm[Hg] Dr. Valeriano Choe Work Phone: 8(325)976-568876 [place] [address] 2022 12:59-0400 Body mass index (BMI) [Ratio] 28.3 kg/m2 Dr. Valeriano Choe Work Phone: 5(435)584-326076 [place] [address] 2022 12:59-0400 Body weight 89.[address] Valeriano Choe Work Phone: 5(960)216-069776 [place] [address] 2022 12:59-0400 Diastolic blood pressure 76 mm[Hg] Dr. Valeriano Choe Work Phone: 6(940)699-891676 [place] [address] 2022 12:59-0400 Heart rate 59 /min Dr. Valeriano Choe Work Phone: [facility] 2022 12:59-0400 SaO2% (BldA) [Mass fraction] 94 % Dr. Valeriano Choe Work Phone: [facility] 2022 12:59-0400 Systolic blood pressure 152 mm[Hg] Dr. Valeriano Choe Work Phone: [facility] 10-12-2022 10:09-0400 Body temperature 97.2 [degF] Suzanna Dawson PA-C Work Phone: [facility] 10-12-2022 10:09-0400 Body weight 85.73 kg Suzannaselvin Dawson PA-C Work Phone: [facility] 10-12-2022 10:09-0400 Diastolic blood pressure 80 mm[Hg] Suzannaselvin Dawson PA-C Work Phone: [facility] 10-12-2022 10:09-0400 Heart rate 56 /min Suzanna Dawson PA-C Work Phone: [facility] 10-12-2022 10:09-0400 Respiratory rate 16 /min Suzanna Dawson PA-C Work Phone: [facility] 10-12-2022 10:09-0400 Systolic blood pressure 136 mm[Hg] Suzanna Dawson PA-C Work Phone: [facility] 09-14-2022 14:41-0500 Body weight 88.91 kg Valeriano Choe MD Work Phone: [facility] 09-14-2022 14:41-0500 Diastolic blood pressure 78 mm[Hg] Valeriano Choe MD Work Phone: [facility] 09-14-2022 14:41-0500 Heart rate 58 /min Valeriano Choe MD Work Phone: [facility] 09-14-2022 14:41-0500 Systolic blood pressure 118 mm[Hg] Valeriano Choe MD Work Phone: [facility] 09-10-2022 11:00-0500 Body temperature 98.9 [degF] Dr. Valeirano Choe Work Phone: [facility] 09-10-2022 11:00-0500 Diastolic blood pressure 85 mm[Hg] Dr. Valeriano Choe Work Phone: [facility] 09-10-2022 11:00-0500 Heart rate 81 /min Dr. Valeriano Choe Work Phone: [facility] 09-10-2022 11:00-0500 Respiratory rate 18 /min Dr. Valeriano Choe Work Phone: [facility] 09-10-2022 11:00-0500 SaO2% (BldA) [Mass fraction] 95 % Dr. Valeriano Choe Work Phone: 2(193)934-753583 [place] [address] 09-10-2022 11:00-0500 Systolic blood pressure 141 mm[Hg] Dr. Valeriano Choe Work Phone: 0(763)724-479883 [place] [address] 09-10-2022 05:55-0500 Body weight 90.[address] Valeriano Choe Work Phone: [facility] 09-06-2022 15:28-0500 Body height 177.[address] Valeriano Choe Work Phone: 7(561)120-123783 [place] [address] 09-04-2022 17:45-0500 Inhaled oxygen flow rate 2 L/min Dr. Valeriano Choe Work Phone: [facility] 09-02-2022 16:04-0500 Body mass index (BMI) [Ratio] 26.9 kg/m2 Dr. Valeriano Choe Work Phone: [facility] 06-27-2022 08:46-0500 Body height 177.8 cm [facility] Work Phone: 06-27-2022 08:46-0500 Body weight 89.58 kg [facility] 05-25-2022 09:38-0400 Body weight 92.98 kg [facility] 04-25-2022 11:19-0400 Body height 177.8 cm [facility] Work Phone: 04-25-2022 11:19-0400 Body weight 90.71 kg [facility] 04-18-2022 15:36-0400 Diastolic blood pressure 105 mm[Hg] Valeriano Choe MD Work Phone: [facility] 04-18-2022 15:36-0400 Systolic blood pressure 175 mm[Hg] Valeriano Choe MD Work Phone: [facility] 04-18-2022 14:39-0400 Body height 174 cm Valeriano Choe MD Work Phone: [facility] 04-18-2022 14:39-0400 Body weight 90.36 kg Valeriano Choe MD Work Phone: [facility] 04-18-2022 14:39-0400 Heart rate 66 /min Valeriano Choe MD Work Phone: [facility] 04-18-2022 14:39-0400 Respiratory rate 16 /min Valeriano Choe MD Work Phone: [facility] 03-25-2022 15:31-0400 Body height 177.8 cm [facility] Work Phone: 03-25-2022 15:31-0400 Body weight 88.45 kg [facility] Work Phone: 03-25-2022 14:44-0400 Body mass index (BMI) [Ratio] 27.1 kg/m2 [facility] Work Phone: 03-25-2022 14:44-0400 Body temperature 98.7 [degF] [facility] Work Phone: 03-25-2022 14:44-0400 Diastolic blood pressure 80 mm[Hg] [facility] Work Phone: 03-25-2022 14:44-0400 Heart rate 56 /min [facility] Work Phone: 03-25-2022 14:44-0400 Respiratory rate 14 /min [facility] Work Phone: 03-25-2022 14:44-0400 SaO2% (BldA) [Mass fraction] 95 % [facility] Work Phone: 03-25-2022 14:44-0400 Systolic blood pressure 134 mm[Hg] [facility] Work Phone: 01-27-2022 14:00-0400 Diastolic blood pressure 80 mm[Hg] DR FRANKLIN NASH MD [address] [place] [address] 01-27-2022 14:00-0400 Heart rate 64 /min DR FRANKLIN NASH MD [address] [place] [address] 01-27-2022 14:00-0400 Mean blood pressure 97 mm[Hg] DR FRANKLIN NASH MD [address] [place] [address] 01-27-2022 14:00-0400 Systolic blood pressure 130 mm[Hg] DR FRANKLIN NASH MD [address] [place] [address] 01-27-2022 13:15-0400 Diastolic blood pressure 72 mm[Hg] DR FRANKLIN NASH MD [address] [place] [address] 01-27-2022 13:15-0400 Heart rate 65 /min DR FRANKLIN NASH MD [address] [place] [address] 01-27-2022 13:15-0400 Mean blood pressure 90 mm[Hg] DR FRANKLIN NASH MD [address] [place] [address] 01-27-2022 13:15-0400 Systolic blood pressure 127 mm[Hg] DR FRANKLIN NASH MD [address] [place] [address] 01-27-2022 13:00-0400 Diastolic blood pressure 75 mm[Hg] DR FRANKLIN NASH MD [address] [place] [address] 01-27-2022 13:00-0400 Heart rate 66 /min DR FRANKLIN NASH MD [address] [place] [address] 01-27-2022 13:00-0400 Mean blood pressure 92 mm[Hg] DR FRANKLIN NASH MD [address] [place] [address] 01-27-2022 12:08-0400 Reason For Taking VItal Signs DR FRANKLIN NASH MD [address] [place] [address] 01-27-2022 12:08-0400 Respiratory rate 18 /min DR FRANKLIN NASH MD [address] [place] [address] 01-27-2022 11:24-0400 Reason For Taking VItal Signs DR FRANKLIN NASH MD [address] [place] [address] 01-27-2022 11:24-0400 Respiratory rate 16 /min DR FRANKLIN NASH MD [address] [place] [address] 01-27-2022 06:11-0400 Body height 177.[address] FRANKLIN NASH MD [address] [place] [address] 01-27-2022 06:11-0400 Body temperature 97.34 [degF] DR FRANKLIN NASH MD [address] [place] [address] 01-27-2022 06:11-0400 Body weight 88.[address] FRANKLIN NASH MD [address] [place] [address] 01-27-2022 06:11-0400 Body weight 28.12 kg/m2 DR FRANKLIN NASH MD [address] [place] [address] 01-27-2022 06:11-0400 diastolic 85 mm[Hg] DR FRANKLIN NASH MD [address] [place] [address] 01-27-2022 06:11-0400 Heart rate 56 /min DR FRANKLIN NASH MD [facility] 01-27-2022 06:11-0400 Respiratory rate 16 /min DR FRANKLIN NASH MD [address] 01-27-2022 06:11-0400 systolic 149 mm[Hg] DR FARNKLIN NASH MD [address] [place] [address] 12-01-2021 10:25-0400 Diastolic blood pressure 78 mm[Hg] CHRISTINE SNYDER MD [address] [place] [address] 12-01-2021 10:25-0400 Heart rate 85 /min CHRISTINE SNYDER MD [address] [place] [address] 12-01-2021 10:25-0400 Respiratory rate 20 /min CHRISTINE SNYDER MD [address] [place] [address] 12-01-2021 10:25-0400 Systolic blood pressure 142 mm[Hg] CHRISTINE SNYDER MD [facility] 12-01-2021 10:18-0400 Heart rate 93 /min CHRISTINE SNYDER MD [facility] 12-01-2021 08:01-0400 Heart rate 68 /min CHRISTINE SNYDER MD [facility] 12-01-2021 06:26-0400 Body temperature 97.7 [degF] CHRISTINE SNYDER MD [facility] 12-01-2021 06:26-0400 Diastolic blood pressure 62 mm[Hg] CHRISTINE SNYDER MD [facility] 12-01-2021 06:26-0400 Reason For Taking VItal Signs CHRISTINE SNYDER MD [facility] 12-01-2021 06:26-0400 Respiratory rate 20 /min CHRISTINE SNYDER MD [facility] 12-01-2021 06:26-0400 Systolic blood pressure 130 mm[Hg] CHRISTINE SNYDER MD [facility] 12-01-2021 04:04-0400 Diastolic blood pressure 70 mm[Hg] CHRISTINE SNYDER MD [facility] 12-01-2021 04:04-0400 Mean blood pressure 89 mm[Hg] CHRISTINE SNYDER MD [facility] 12-01-2021 04:04-0400 Reason For Taking VItal Signs CHRISTINE SNYDER MD [facility] 12-01-2021 04:04-0400 Respiratory rate 20 /min CHRISTINE SNYDER MD [facility] 12-01-2021 04:04-0400 Systolic blood pressure 128 mm[Hg] CHRISTINE SNYDER MD [facility] 11-30-2021 22:06-0400 Body temperature 98.24 [degF] CHRISTINE SNYDER MD [facility] 11-30-2021 22:06-0400 Mean blood pressure 103 mm[Hg] CHRISTINE SNYDER MD [facility] 11-30-2021 22:06-0400 Reason For Taking VItal Signs CHRISTINE SNYDER MD [facility] 11-30-2021 19:22-0400 Diastolic Blood Pressure NBP 82 1 CHRISTINE SNYDER MD [facility] 11-30-2021 19:22-0400 Systolic Blood Pressure NBP 138 1 CHRISTINE SNYDER MD [facility] 11-30-2021 19:01-0400 Body temperature 97.7 [degF] CHRISTINE SNYDER MD [facility] 11-30-2021 19:01-0400 Mean blood pressure 95 mm[Hg] CHRISTINE SNYDER MD [facility] 11-30-2021 13:20-0400 SaO2% (BldA) [Mass fraction] 96.3 % CHRISTINE SNYDER MD [facility] 11-30-2021 11:33-0400 Heart rate 56 /min CHRISTINE SNYDER MD [facility] 11-30-2021 09:52-0400 Heart rate 64 /min CHRISTINE SNYDER MD [facility] 11-30-2021 07:29-0400 Heart rate 52 /min CHRISTINE SNYDER MD [facility] 11-30-2021 02:55-0400 Diastolic Blood Pressure NBP 72 1 CHRISTINE SNYDER MD [facility] 11-30-2021 02:55-0400 Mean blood pressure 85 mm[Hg] CHRISTINE SNYDER MD [facility] 11-30-2021 02:55-0400 Systolic Blood Pressure NBP 118 1 CHRISTINE SNYDER MD [facility] 11-30-2021 02:22-0400 Diastolic Blood Pressure NBP 52 1 CHRISTINE SNYDER MD [facility] 11-30-2021 02:22-0400 Mean blood pressure 68 mm[Hg] CHRISTINE SNYDER MD [facility] 11-30-2021 02:22-0400 Systolic Blood Pressure NBP 104 1 CHRISTINE SNYDER MD [facility] 11-30-2021 00:05-0400 Mean blood pressure 85 mm[Hg] CHRISTINE SNYDER MD [facility] 11-29-2021 16:55-0400 Body height 177.8 cm CHRISTINE SNYDER MD [facility] 11-29-2021 16:55-0400 Body weight 94.5 kg CHRISTINE SNYDER MD [facility] 11-29-2021 16:55-0400 Body weight 29.89 kg/m2 CHRISTINE SNYDER MD [facility] 11-29-2021 15:00-0400 Diastolic blood pressure 141 mm[Hg] DONAVON NUNEZ DO [facility] 11-29-2021 15:00-0400 Heart rate 59 /min DONAVON NUNEZ DO [facility] 11-29-2021 15:00-0400 Respiratory rate 20 /min DONAVON NUNEZ DO [facility] 11-29-2021 15:00-0400 Systolic blood pressure 155 mm[Hg] DONAVON NNUEZ DO [facility] 11-29-2021 14:56-0400 Body weight 95.4 kg DONAVON NUNEZ DO [facility] 11-29-2021 14:34-0400 Body temperature 98.6 [degF] DONAVON NUNEZ DO [facility] 11-29-2021 14:34-0400 Body weight 95.4 kg DONAVON NUNEZ DO [facility] 11-29-2021 14:34-0400 Diastolic blood pressure 97 mm[Hg] DONAVON NUNEZ DO [facility] 11-29-2021 14:34-0400 Heart rate 40 /min DONAVON NUNEZ DO [facility] 11-29-2021 14:34-0400 Respiratory rate 22 /min DONAVON NUNEZ DO [facility] 11-29-2021 14:34-0400 Systolic blood pressure 138 mm[Hg] DONAVON NUNEZ DO [facility] Encounters Encounter Date Encounter Type Care Provider Facility Start: 06-02-2025 End: 06-02-2025 ambulatory VALERIANO CHOE Facility:[facility] Start: 05-12-2025 End: 05-12-2025 ambulatory Valeriano Choe Facility:[facility] Start: 05-08-2025 End: 05-08-2025 Patient encounter procedure Estefany LAMBERT -[facility] Work Phone: Start: 05-08-2025 End: 05-08-2025 ambulatory Valeriano Choe [facility] Start: 05-06-2025 End: 05-06-2025 ambulatory VALERIANO CHOE Facility:[facility] Start: 05-06-2025 Patient encounter procedure VALERIANO CHOE [facility] Start: 05-06-2025 End: 05-06-2025 ambulatory VALERIANO CHOE Facility:[facility] Start: 04-30-2025 End: 04-30-2025 ambulatory TAYLER ELLIS Facility:[facility] Start: 04-24-2025 End: 04-24-2025 ambulatory VALERIANO CHOE Facility:[facility] Start: 03-20-2025 ambulatory Valeriano Choe Facility :[facility] Start: 03-20-2025 Non-patient / Non-visit Ahmet Nair nd DO -[facility] Start: 03-20-2025 End: 03-20-2025 Admission to same day surgery center Ahmet Chacon DO -Endoscopy Work Phone: Start: 03-20-2025 End: 03-20-[address] Valeriano Choe MD Work Phone: -Endoscopy Start: 03-10-2025 End: 03-20-2025 Chart abstracting Flakita Pastor MA [facility] Comment on above: ext document (Labs, procedure) Start: 03-10-2025 End: 03-10-[address] Valeriano Choe MD Work Phone: -Ultrasound [facility] Start: 03-10-2025 End: 03-10-[address] Shubham Blanco MD -Ultrasound [facility] Work Phone: Start: 03-10-2025 End: 03-10-2025 ambulatory Shubham Blanco Facility:[facility] Start: 02-26-2025 End: 02-26-[address] Shubham Blanco MD -[facility] Work Phone: Start: 02-26-2025 End: 02-26-[address] Valeriano Choe MD Work Phone: -[facility] Start: 02-25-2025 End: 02-25-[address] Valeriano Choe MD Work Phone: -Laboratory Start: 02-25-2025 End: 02-25-2025 Patient encounter procedure Ashley Radford -Laboratory Work Phone: Start: 02-25-2025 End: 02-25-2025 ambulatory Valeriano Choe Facility:[facility] Start: 02-07-2025 End: 02-07-2025 Chart abstracting Valeriano Choe MD Work Phone: [facility] Comment on above: Outside [id number] Ordered Start: 02-07-2025 End: 02-07-[address] Valeriano Choe MD Work Phone: -Laboratory Start: 02-07-2025 End: 02-07-[address] Shubham Blanco MD -Laboratory Work Phone: Start: 02-07-2025 End: 02-07-2025 ambulatory Shubhammary jo Blanco Facility:[facility] Start: 01-30-2025 End: 01-30-2025 Chart abstracting Valeriano Choe MD Work Phone: [facility] Comment on above: Abstract (Allergy OV notes) Start: 01-30-2025 End: 01-30-2025 ambulatory VALERIANO CHOE Facility:[facility] Start: 01-30-2025 End: 01-30-2025 Patient encounter procedure Valeriano Choe MD Work Phone: [facility] [place] Comment on above: Lower GI bleed (Prim [place] Dx); Angiodysplasia of colon Start: 01-29-2025 End: 01-29-2025 Patient encounter procedure Ping LAMBERT -[facility] Work Phone: Start: 01-29-2025 End: 01-29-[address] Valeriano Choe MD Work Phone: -[facility] Start: 01-27-2025 End: 01-27-2025 Chart abstracting Valeriano Choe MD Work Phone: [facility] [place] Comment on above: Abstract ([facility] Admiss ion - GI bleed) Start: 01-25-2025 Non-patient / Non-visit Dr. Shubham Blanco MD -[facility] Work Phone: Start: 01-24-2025 Non-patient / Non-visit Dr. Shubham Blanco MD -[facility] Work Phone: Start: 01-23-2025 End: 01-25-2025 Evaluation and management of inpatient Dr. Tessa [facility] Work Phone: Start: 01-23-2025 End: 01-23-2025 ambulatory Valeriano Choe MD Work Phone: [facility] Comment on above: RECENT GI BLEED Rectal Bleeding Start: 01-01-2025 End: 01-01-2025 ambulatory SUZANNA DAWSON Facility:[facility] Start: 01-01-2025 End: 01-01-2025 Patient encounter procedure Suzanna Dawson PA-C Work Phone: [facility] Comment on above: Hospital discharge f ollow-up (Primary Dx); Essential hypertension, benign Start: 12-30-2024 Non-patient / Non-visit Dr. Alexi elizalde DO [facility] Work Phone: Start: 12-30-2024 Non-patient / Non-visit Dr. Homer avila DO -[facility] Start: 12-29-2024 Non-patient / Non-visit Dr. Alexi Flanagan dionne [facility] Work Phone: Start: 12-28-2024 Non-patient / Non-visit Dr. Alexi Flanagan dionne [facility] Work Phone: Start: 12-27-2024 Non-patient / Non-visit Dr. Flakita Florentino DO [facility] Work Phone: Start: 12-27-2024 ambulatory Flakita Florentino Facility:[facility] Start: 12-27-2024 End: 12-30-2024 Evaluation and management of inpatient Dr. Flakita Florentino DO -Intensive Care Unit Work Phone: Start: 12-26-2024 End: 12-26-2024 Chart abstracting Valeriano Choe MD Work Phone: [facility] [place] Comment on above: Outside Cardiology Start: 12-23-2024 End: 12-23-2024 Patient encounter procedure Patria Butler MD Work Phone: Neurology Comment on above: Peripheral polyneuro mikala (Primary Dx); Low vitamin B12 level; Drinks beer Start: 12-23-2024 End: 12-23-2024 ambulatory PATRIA BUTLER JR Facility:[facility] Start: 11-14-2024 End: 01-14-2025 Follow-up encounter Nyla Ferguson DO Work Phone: Rheumatology Start: 11-12-2024 End: 11-12-2024 Chart abstracting Valeriano Choe MD Work Phone: [facility] [place] Comment on above: Outside Urology Start: 11-07-2024 End: 01-07-2025 Follow-up encounter Ni Sauceda APRN.PATHOLOGY TECH Work Phone: [facility] [place] Comment on above: Results Start: 11-06-2024 ambulatory NI SAUCEDA Facilit y:[facility] Start: 11-06-2024 End: 11-06-2024 Subsequent hospital visit by physician [facility] Work Phone: Radiology Comment on above: Screening for abdomi nal aortic aneurysm [Z13.6] Start: 11-05-2024 End: 11-12-2024 Chart abstracting Flakita Pastor MA [facility] [place] Comment on above: external document (L ab results) Start: 11-05-2024 End: 11-05-2024 Patient encounter procedure Estefany LAMBERT -[facility] Work Phone: Start: 11-05-2024 End: 11-05-[address] Valeriano Choe MD Work Phone: [facility] Work Phone: Start: 11-05-2024 End: 11-05-2024 ambulatory Shubham Francis Facility:[facility] Start: 11-01-2024 End: 11-01-2024 Patient encounter procedure Ni Sauceda APRN.CNP Work Phone: [facility] Comment on above: Essential hypertensi on, benign (Primary Dx); Alcoholic cirrhosis, unspecified whether ascites present (HCC); Advance directive discussed with patient; Valvular heart disease; Lumbosacral radiculopathy at L5; Mixed hyperlipidemia; Coronary artery disease due to lipid rich plaque; Low vitamin D level; Prostate disorder; Low serum vitamin B12; Medication management; Screening for abdominal aortic aneurysm Start: 11-01-2024 End: 11-01-2024 ambulatory NI SAUCEDA Facility:[facility] Start: 10-30-2024 End: 10-30-2024 ambulatory NYLA FERGUSON Facility:[facility] Start: 10-29-2024 End: 10-30-2024 Follow-up encounter Stephanie Stallings DO Work Phone: Hematology/Oncology Start: 10-23-2024 End: 10-23-2024 ambulatory STEPHANIE STALLINGS Facility:[facility] Start: 10-23-2024 End: 10-23-2024 Subsequent hospital visit by physician Vonnie [facility] [place] Work Phone: Radiology Comment on above: Monoclonal gammopath y [D47.2] Start: 10-23-2024 End: 10-23-2024 Chart abstracting Ganesh White MA [facility] Comment on above: Results Start: 10-23-2024 End: 10-23-2024 ambulatory Stephanie Stallings DO Work Phone: Hematology/Oncology Comment on above: Monoclonal gammopath y (Primary Dx); Neuropathy - (NOS) Start: 10-23-2024 End: 10-23-2024 Patient encounter procedure Stephanie Abdoulaye Modestoneil DO Work Phone: Hematology/Oncology Start: 10-21-2024 End: 10-21-2024 ambulatory STEPHANIE Abdoulaye MODESTONeil Facility:[facility] Start: 10-11-2024 End: 10-11-[address] Valeriano Choe MD Work Phone: [facility] Work Phone: Start: 10-11-2024 End: 10-11-[address] Geovani Barron MD -Laboratory, Specimen Work Phone: Start: 10-11-2024 End: 10-11-2024 ambulatory [facility] Facility:[facility] Start: 10-09-2024 Encounter for preprocedural cardiovascular examination [facility] Start: 09-27-2024 End: 10-01-2024 Telephone encounter Stephanie Stallings DO Work Phone: Hematology/Oncology Comment on above: Results Start: 09-26-2024 End: 09-26-[address] Valeriano Choe MD Work Phone: [facility] Work Phone: Start: 09-26-2024 End: 09-26-[address] Geovani Barron MD -Pulmonary Services/Neurology Work Phone: Start: 09-25-2024 End: 09-26-2024 ambulatory Stephanie Jacksonneil DO Work Phone: Hematology/Oncology Comment on above: Neuropathy - (NOS) ( Primary Dx) Start: 09-25-2024 End: 09-25-2024 Patient encounter procedure Stephanie Stallings Work Phone: Hematology/Oncology Start: 09-24-2024 End: 09-24-2024 Chart abstracting Valeriano Choe MD Work Phone: [facility] [place] Comment on above: Outside Imaging (Uro logy/) Start: 09-23-2024 End: 09-23-[address] Valeriano Choe MD Work Phone: [facility] Work Phone: Start: 09-23-2024 End: 09-23-[address] Geovani Barron MD -Radiology, [facility] Work Phone: Start: 09-23-2024 End: 09-23-2024 ambulatory Valeriano Choe Facility:[facility] Start: 09-19-2024 End: 09-19-[address] Shubham Blanco MD -[facility] Work Phone: Start: 09-19-2024 End: 09-19-2024 ambulatory [facility] Start: 09-18-2024 End: 09-18-2024 Chart abstracting Ganesh White MA [facility] Comment on above: Results (Outside lab s ) Start: 09-17-2024 End: 09-17-2024 Chart abstracting Valeriano Choe MD Work Phone: [facility] Comment on above: Outside Obrl-Gdj-GAG Ordered Start: 09-13-2024 End: 09-13-2024 Chart abstracting Valeriano Choe MD Work Phone: Family [facility] Comment on above: Outside Hqil-Uuj-DSS Ordered Start: 09-12-2024 End: 09-12-[address] Shubham Blanco MD -Laboratory Work Phone: Start: 09-12-2024 End: 09-12-2024 ambulatory Shubham Blanco Facility:[facility] Start: 09-07-2024 End: 09-07-2024 Chart abstracting Valeriano Choe MD Work Phone: Family [facility] Comment on above: Outside Imaging Start: 09-06-2024 End: 09-06-[address] Shubham Blanco MD -Cat Scan, [facility] Work Phone: Start: 09-06-2024 End: 09-06-2024 ambulatory Shubham Blanco Facility:[facility] Start: 09-03-2024 End: 09-03-2024 ambulatory Nyla Ferguson DO Work Phone: Rheumatology Comment on above: Positive GALLO (antinu clear antibody) (Primary Dx); Ds DNA antibody positive; Neuropathy Start: 09-03-2024 End: 09-03-2024 Telemedicine consultation with patient Nyla Ferguson DO Work Phone: Rheumatology Start: 09-03-2024 End: 09-03-2024 Telephone encounter Patria Butler MD Work Phone: Neurology Start: 09-02-2024 End: 09-03-2024 Follow-up encounter Patria Butler MD Work Phone: Neurology Comment on above: Abnormal SPEP (Prima ry Dx) Start: 08-30-2024 End: 08-30-2024 ambulatory PATRIA BUTLER JR Facility:[facility] Start: 08-30-2024 End: 08-30-2024 Patient encounter procedure Patria Butler MD Work Phone: Neurology Comment on above: Neuropathy, idiopath ic (Primary Dx); Abnormal SPEP; Positive GALLO (antinuclear antibody); Abnormality of gait; Numbness Start: 08-30-2024 End: 08-30-2024 ambulatory SELF Facility:[facility] Start: 08-28-2024 End: 08-28-2024 Chart abstracting Valeriano Choe MD Work Phone: [facility] Comment on above: Outside Urology Start: 08-19-2024 End: 08-19-2024 ambulatory VALERIANO CHOE Facility:[facility] Start: 08-19-2024 End: 08-19-2024 ambulatory VALERIANO CHOE Facility:[facility] Start: 08-19-2024 End: 08-19-2024 Office consultation new/estab patient 40 min Arun Acosta DO Work Phone: Allergy Comment on above: Angioedema, subseque nt encounter Start: 07-31-2024 End: 07-31-2024 ambulatory VALERIANO CHOE Facility:[facility] Start: 07-31-2024 End: 07-31-2024 Patient encounter procedure Valeriano Choe MD Work Phone: [facility] [place] Comment on above: Angioedema, subseque nt encounter (Primary Dx) Start: 07-19-2024 End: 07-19-2024 Chart abstracting Valeriano Choe MD Work Phone: Family [facility] [place] Comment on above: ER Discharge Summary Refill Request Start: 07-18-2024 End: 07-18-2024 Emergency department patient visit Dr. Stan Gilbert DO -Emergency Department Work Phone: Start: 06-05-2024 End: 06-05-2024 Chart abstracting Valeriano Choe MD Work Phone: [facility] [place] Comment on above: Outside Gastro Start: 06-04-2024 End: 06-04-2024 ambulatory [facility] Start: 05-30-2024 End: 05-30-2024 Chart abstracting Valeriano Choe MD Work Phone: [facility] [place] Start: 05-29-2024 End: 05-29-2024 Office outpatient visit 15 minutes Suzanna Dawson PA-C Work Phone: [facility] [place] Comment on above: Essential hypertensi on, benign (Primary Dx) Start: 05-28-2024 End: 05-28-2024 Chart abstracting Valeriano Choe MD Work Phone: [facility] [place] Comment on above: Outside Urology Start: 05-20-2024 End: 05-21-2024 Telephone encounter Suzanna Dawson PA-C Work Phone: [facility] [place] Comment on above: Results Start: 05-14-2024 End: 05-20-2024 Telephone encounter Suzanna Dawson PA-C Work Phone: [facility] [place] Comment on above: Results Start: 05-13-2024 End: 05-13-2024 Telephone encounter Valeriano Choe MD Work Phone: [facility] [place] Comment on above: Patient Question Start: 05-01-2024 End: 05-01-2024 Telephone encounter Valeriano Choe MD Work Phone: [facility] [place] Comment on above: Release Of Medical R ecords Start: 05-01-2024 End: 05-01-2024 Patient encounter procedure Suzanna Dawson PA-C Work Phone: [facility] [place] Comment on above: Medicare annual well ness visit, subsequent (Primary Dx); Encounter for immunization; Essential hypertension, benign; Advance directive discussed with patient; Living will in place; 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; Valvular heart disease; Coronary artery disease due to lipid rich plaque; Heart murmur, systolic; Mixed hyperlipidemia; Low vitamin D level; Low serum vitamin B12; Gout without tophus; Overweight with body mass index (BMI) of 29 to 29.9 in adult; Elevated LFTs; Alcohol abuse; Elevated PSA Start: 04-17-2024 End: 04-17-2024 Chart abstracting Ganesh White MA [facility] [place] Comment on above: Consult (Outside Car diology /) Start: 04-04-2024 End: 04-04-2024 Patient encounter procedure Ni Sauceda APRN.PATHOLOGY TECH Work Phone: [facility] [place] Comment on above: Essential hypertensi on, benign (Primary Dx) Start: 04-01-2024 End: 04-01-2024 Chart abstracting Ganesh White MA [facility] [place] Comment on above: ER F/U Start: 04-01-2024 End: 04-01-2024 Telephone encounter Ganesh White MA Family [facility] [place] Comment on above: Appointment Start: 03-29-2024 End: 03-29-2024 Patient encounter procedure Jayda Villareal APRN.PATHOLOGY TECH Work Phone: [place] Comment on above: Tongue swelling (Linda marilyn Dx) Start: 02-08-2024 End: 02-08-2024 Subsequent hospital visit by physician [facility] (I-Stat) Work Phone: Cat Scan Comment on above: Occlusion and stenos is of unspecified carotid artery [I65.29] Start: 02-06-2024 Telephone encounter Patria Butler MD Work Phone: Neurology Comment on above: Results Start: 02-06-2024 End: 02-06-2024 Subsequent hospital visit by physician [employer] [facility] (I-Stat/1.5t) Work Phone: Radiology Comment on above: Other symptoms and s igns involving the nervous system [R29.818] Start: 01-31-2024 Chart abstracting Valeriano lua MD Work Phone: Family [facility] [place] Comment on above: Outside Cardiology Start: 01-08-2024 Refill Valeriano solano MD Work Phone: [facility] [place] Comment on above: Refill Request Results Start: 01-01-2024 End: 01-01-2024 Patient encounter procedure Patria Butler MD Work Phone: Neurology Comment on above: Balance problems (Pr imary Dx); Abnormality of gait; Numbness; Neuropathy; Other symptoms and signs involving the nervous system; History of CAD (coronary artery disease); History of coronary artery stent placement Start: 12-28-2023 Telephone encounter Valeriano Choe MD Work Phone: Family [facility] [place] Comment on above: Patient Question Start: 12-19-2023 Chart abstracting Valeriano lua MD Work Phone: [facility] [place] Comment on above: Ext / Nuclear Stress Test Start: 10-17-2023 Telephone encounter Valeriano Choe MD Work Phone: [facility] [place] Comment on above: Orders (labs) Start: 10-14-2023 ambulatory Genny Tsai MA [facility] Start: 10-14-2023 Patient encounter procedure Genny Tsai MA [facility] [place] Comment on above: Population Health Na vigation Outreach ([facility] Annual Wellness Visit ) Start: 10-03-2023 Telephone encounter Valeriano Choe MD Work Phone: [facility] Comment on above: Orders Start: 09-29-2023 Chart abstracting Valeriano lua MD Work Phone: [facility] Comment on above: Outside Echo ([place]) Start: 09-28-2023 Non-patient / Non-visit Dr. William Choe Work Phone: [facility] Work Phone: Start: 09-28-2023 Non-patient / Non-visit Dr. William Choe Work Phone: [facility] Start: 09-28-2023 End: 09-28-[address] Valeriano Choe Work Phone: [facility] Work Phone: Start: 09-28-2023 End: 09-28-[address] [facility] Work Phone: Start: 09-25-2023 Refill Valeriano solano MD Work Phone: [facility] Comment on above: Refill Request Start: 09-07-2023 Chart abstracting Valeriano lua MD Work Phone: [facility] Comment on above: [place] (labs) Start: 09-06-2023 Chart abstracting Valeriano lua MD Work Phone: [facility] Comment on above: Outside Cardiology ( labs) Start: 09-05-2023 End: 09-05-[address] Valeriano Choe Work Phone: [facility] Work Phone: Start: 09-05-2023 End: 09-05-[address] Valeriano Choe Work Phone: [facility] Work Phone: Start: 09-04-2023 Chart abstracting Valeriano lua MD Work Phone: [facility] Comment on above: outside imaging Start: 09-01-2023 Chart abstracting Valeriano lua MD Work Phone: [facility] [place] Comment on above: Outside Orthopedics Start: 09-01-2023 Telephone encounter Valeriano Choe MD Work Phone: Radiology Start: 09-01-2023 End: 09-01-[address] Valeriano Choe Work Phone: [facility] Work Phone: Start: 08-29-2023 Telephone encounter Valeriano Choe MD Work Phone: [facility] Comment on above: Results Start: 08-28-2023 End: 08-28-2023 Subsequent hospital visit by physician [facility] (I-Stat) Work Phone: Cat Scan Comment on above: Other specified diso rders of kidney and ureter [N28.89] Start: 08-25-2023 ambulatory Kirsten Denny MA [facility] [place] Comment on above: Population Health Na vigation Outreach ([facility] AWV) Start: 08-21-2023 Telephone encounter Valeriano Choe MD Work Phone: [facility] Comment on above: Results Start: 05-26-2023 Chart abstracting Valeriano lua MD Work Phone: [facility] Comment on above: Results (EMG ) Start: 05-25-2023 Non-patient / Non-visit Dr. William Choe Work Phone: [facility] Start: 05-25-2023 End: 05-25-[address] Valeriano Choe Work Phone: [facility] Work Phone: Start: 05-25-2023 End: 05-25-[address] Valeriano Choe Work Phone: [facility]-Pulmonary Services/Neurology Work Phone: Start: 05-18-2023 End: 05-18-2023 Patient encounter procedure Valeriano Choe MD Work Phone: [facility] Comment on above: Essential hypertensi on, benign (Primary Dx); Low serum vitamin B12; Anxiety Start: 04-20-2023 End: 04-20-2023 Patient encounter procedure Valeriano Choe MD Work Phone: [facility] Comment on above: Medicare annual well [...] Chart abstracting Valeriano lua MD Work Phone: [facility] Comment on above: Outside GI Start: 12-20-2022 ambulatory Valeriano solano MD Work Phone: [facility] Start: 12-09-2022 End: 12-09-[address] Valeriano Choe Work Phone: [facility] Work Phone: Start: 12-09-2022 End: 12-09-[address] Valeriano Choe Work Phone: [facility] [facility] Start: 11-10-2022 Refill Valeriano solano MD Work Phone: [facility] Comment on above: Refill Request Refill Request (This is a short term to local pharmacy and a copy of the 90 sent to mail order.) Start: 10-20-2022 Chart abstracting Valeriano lua MD Work Phone: [facility] Comment on above: Consult (GI ) Start: 2022 End: [address] Valeriano Choe Work Phone: [facility] Gastroenterology Start: 10-13-2022 Telephone encounter Suzanna park PA-C Work Phone: [facility] Comment on above: Results Start: 10-12-2022 End: 10-12-2022 Patient encounter procedure Suzanna Dawson PA-C Work Phone: [facility] Comment on above: Essential hypertensi on, benign (Primary Dx); Mixed hyperlipidemia; NSTEMI (non-ST elevated myocardial infarction) (HCC); Coronary artery disease due to lipid rich plaque; AVM (arteriovenous malformation) of colon; Situational depression; Alcohol abuse; Anxiety; Elevated PSA; Lower GI bleed; Anemia, unspecified type; Prostate disorder; Low vitamin D level; Gout without tophus Start: 09-21-2022 Non-patient / Non-visit Dr. William Choe Work Phone: [facility] Start: 09-15-2022 Telephone encounter Valeriano Choe MD Work Phone: [facility] Comment on above: Results Start: 09-14-2022 End: 09-14-2022 Patient encounter procedure Valeriano Choe MD Work Phone: [facility] Comment on above: Lower GI bleed (Prim [place] Dx); Situational depression; AVM (arteriovenous malformation) of colon; Alcohol abuse; H/O non-ST elevation myocardial infarction (NSTEMI); Mixed hyperlipidemia Start: 09-10-2022 ambulatory Valeriano solano MD Work Phone: [facility] Start: 09-10-2022 Follow-up encounter Valeriano Choe MD Work Phone: [facility] Comment on above[facility] Start: 09-10-2022 Non-patient / Non-visit Dr. William Choe Work Phone: [facility] Start: 09-10-2022 Non-patient / Non-visit Dr. William Choe Work Phone: [facility] Start: 09-09-2022 Non-patient / Non-visit Dr. William Choe Work Phone: [facility] Start: 09-08-2022 Non-patient / Non-visit Dr. William Choe Work Phone: [facility] Start: 09-08-2022 Non-patient / Non-visit Dr. William Choe Work Phone: [facility] Start: 09-07-2022 Non-patient / Non-visit Dr. William Choe Work Phone: [facility] Start: 09-07-2022 Non-patient / Non-visit Dr. William Choe Work Phone: [facility] Start: 09-06-2022 Non-patient / Non-visit Dr. William Choe Work Phone: [facility] Start: 09-06-2022 Non-patient / Non-visit Dr. William Choe Work Phone: [facility] Start: 09-06-2022 Non-patient / Non-visit Dr. William Choe Work Phone: [facility] Start: 09-05-2022 Non-patient / Non-visit Dr. William Choe Work Phone: [facility] Start: 09-05-2022 Non-patient / Non-visit Dr. William Choe Work Phone: [facility] Start: 09-05-2022 Chart abstracting Valeriano lua MD Work Phone: [facility] Comment on above: Consult (Consult [facility] ) Results (EGD results - [facility] ) Start: 09-05-2022 Non-patient / Non-visit Dr. William Choe Work Phone: [facility] Start: 09-04-2022 Non-patient / Non-visit Dr. William Choe Work Phone: [facility] Start: 09-04-2022 Non-patient / Non-visit Dr. William Choe Work Phone: [facility] Start: 09-04-2022 Non-patient / Non-visit Dr. William Choe Work Phone: [facility] Start: 09-03-2022 Non-patient / Non-visit Dr. William Choe Work Phone: [facility] Start: 09-02-2022 End: 09-02-2022 Non-patient / Non-visit Dr. Valeriano Choe Work Phone: [facility] Start: 09-02-2022 Non-patient / Non-visit Dr. William Choe Work Phone: [facility] Start: 09-02-2022 End: 09-10-2022 Evaluation and management of inpatient Dr. Valeriano Choe Work Phone: [facility] Start: 06-27-2022 End: 07-23-2022 ambulatory [facility] Work Phone: Start: 06-27-2022 End: 07-23-2022 Discharged Recurring [facility] Start: 06-22-2022 End: 06-22-2022 Discharged Recurring [facility] Start: 05-23-2022 End: 05-23-2022 ambulatory [facility] Work Phone: Start: 05-23-2022 End: 05-23-2022 Discharged Recurring [facility] Start: 04-22-2022 End: 04-22-2022 ambulatory [facility] Work Phone: Start: 04-22-2022 End: 04-22-2022 Discharged Recurring [facility] Start: 04-18-2022 End: 04-18-2022 Patient encounter procedure Valeriano Choe MD Work Phone: [facility] Comment on above: Medicare annual well ness visit, subsequent (Primary Dx); Essential hypertension, benign; Mixed hyperlipidemia; Coronary artery disease due to lipid rich plaque; Anxiety; Low vitamin D level; Gout without tophus; Elevated PSA; Living will in place; Advance directive discussed with patient Start: 04-12-2022 Telephone encounter Valeriano Choe MD Work Phone: [facility] Comment on above: Orders Start: 03-30-2022 Registered Recurring [facility] Start: 03-25-2022 End: 03-25-2022 ambulatory [facility] Work Phone: Start: 03-25-2022 End: 03-25-2022 Patient encounter procedure [facility] Start: 01-29-2022 ambulatory TESSA MENG MD Facili ty:A Start: 01-27-2022 End: 01-27-[address] FRANKLIN NASH MD Facility:A Start: 01-27-2022 End: 01-27-[address] FRANKLIN NASH MD [facility] Start: 01-18-2022 ambulatory TESSA MENG MD Facili ty:A Start: 01-01-2022 Orders Only Tessa Donato DO Work Phone: [facility] [place] Comment on above: Myocardial infarctio n involving left anterior descending (LAD) coronary artery, unspecified PA type (HCC) (Primary Dx) Start: 12-31-2021 Telephone encounter Celestine anthony MD Work Phone: Cardiothoracic Comment on above: Insurance Authorizat ion Start: 12-06-2021 Patient encounter procedure Celestine Talavera MD Work Phone: [facility] Work Phone: Start: 12-02-2021 Telephone encounter Ganesh White MA [facility] [place] Comment on above: Appointment Start: 11-29-2021 End: 12-01-2021 Evaluation and management of inpatient CHRISTINE SNYDER MD [facility] Start: 11-29-2021 End: 11-29-2021 Emergency department patient visit DONAVON Greco [facility] Start: 03-15-2021 Patient encounter procedure Ganesh White MA [facility] Work Phone: Procedures Date Procedure Procedure Detail Performing Clinician Start: 03-20-[address] Valeriano Choe MD Work Phone: Start: 03-10-2025 Total iron binding capacity measurement Dr. Valeriano Choe MD Work Phone: Start: 03-10-2025 Ultrasound elastography of liver Dr. Jett Choe MD Work Phone: Start: 02-25-2025 Prostate specific antigen measurement Dr. Valeriano Choe MD Work Phone: Comment on above: This [...] Start: 02-25-2025 Plain X-ray abdomen Dr. Valeriano Choe MD Work Phone: Start: 01-25-[address] Gabriele Choe MD Work Phone: Start: 01-25-2025 Serum inorganic phosphate measurement Dr. Valeriano Choe MD Work Phone: Start: 01-24-2025 Measurement of occult blood in stool specimen using immunoassay Dr. Valeriano Choe MD Work Phone: Start: 01-23-2025 Urnls dip stick/tablet reagent auto microscopy Dr. Valeriano Choe MD Work Phone: Start: 01-23-[address] Gabriele Choe MD Work Phone: Start: 01-23-2025 Total iron binding capacity measurement Dr. Valeriano Choe MD Work Phone: Start: 01-23-[address] Valeriano Choe MD Work Phone: Start: 12-30-[address] Gabriele Choe MD Work Phone: Start: 12-29-[address] Valeriano Choe MD Work Phone: Start: 12-29-2024 SARS-CoV-2, Influenza & RSV (PCR) Dr. William Choe MD Work Phone: Start: 12-29-2024 Carbon dioxide measurement, partial pressure Dr. Valeriano Choe MD Work Phone: Start: 12-29-2024 Gases blood o2 saturation only direct reid Dr. Valeriano Choe MD Work Phone: Start: 12-29-2024 Measurement of partial pressure of oxygen in blood Dr. Valeriano Choe MD Work Phone: Start: 12-29-[address] Valeriano Choe MD Work Phone: Start: 12-29-2024 Plain chest X-ray Dr. Valeriano Choe MD Work Phone: Start: 12-29-2024 Hepatitis A virus antibody, IgM type Dr. Valeriano Choe MD Work Phone: Comment on above: A negative anti-HAV IgM result suggests no recent orcurrent HAV infection. Start: 12-29-2024 Hepatitis B core antibody measurement, IgM type Dr. aVleriano Choe MD Work Phone: Start: 12-29-2024 Hepatitis C antibody measurement Dr. Jett Choe MD Work Phone: Start: 12-28-[address] Valeriano Choe MD Work Phone: Start: 12-28-[address] Valeriano Choe MD Work Phone: Start: 12-28-[address] Dalila Choe MD Work Phone: Start: 12-28-2024 Serum inorganic phosphate measurement Dr. Valeriano Choe MD Work Phone: Start: 12-27-2024 Carbon dioxide measurement, partial pressure Dr. Valeriano Choe MD Work Phone: Start: 12-27-2024 Gases blood o2 saturation only direct reid Dr. Valeriano Choe MD Work Phone: Start: 12-27-2024 Measurement of partial pressure of oxygen in blood Dr. Valeriano Choe MD Work Phone: Start: 12-27-[address] Valeriano Choe MD Work Phone: Start: 12-27-[address] Valeriano Choe MD Work Phone: Start: 12-27-[address] Dalila Choe MD Work Phone: Start: 12-27-2024 Plain chest X-ray Dr. Valeriano Choe MD Work Phone: Start: 12-27-[address] Gabriele Choe MD Work Phone: Start: 11-06-2024 Us abdominal aorta real time screen study aaa Ni Sauceda APRN.PATHOLOGY TECH Work Phone: Start: 10-30-2024 Lipid 1996 panel - Serum or Plasma Ni Sauceda APRN.PATHOLOGY TECH Work Phone: Start: 10-11-2024 Cholesterol serum/whole blood total Dr. Valeriano Choe MD Work Phone: Comment on above: Test not performed Start: 10-11-2024 External camera medical photography Dr. Valeriano Choe MD Work Phone: Comment on above: Photograph will follow under a separate cover Start: 09-23-2024 Plain X-ray abdomen Dr. Valeriano Choe MD Work Phone: Start: 09-12-2024 Hzleo-8-Segixggtnrb measurement Dr. Jae Choe MD Work Phone: Comment on above: Georgina Goodman Electrochemiluminescen ce Immunoassay(ECLIA)Values obtained with different assay methods or kits cannotbe used interchangeably. Results cannot be interpreted asabsolute evidence of the presence or absence of malignantdisease.This test is not interpretable in females. Start: 09-12-[address] Valeriano Choe MD Work Phone: Comment on above: Performed at: [facility] [place] [id number] Director: José Miguel Alba PhD, Phone: [phone] Start: 09-12-2024 Antibody to centromere measurement Dr. Valeriano Choe MD Work Phone: Comment on above: Test not performed Start: 09-12-2024 Antibody to extractable nuclear antigen measurement Dr. Valeriano Choe MD Work Phone: Comment on above: Test not performed Start: 09-12-2024 Antibody to FRANCIA-[address] Valeriano Choe MD Work Phone: Comment on above: Test not performed Start: 09-12-2024 Antibody to lupus La protein measurement Dr. Valeriano Choe MD Work Phone: Comment on above: Test not performed Start: 09-12-2024 Antibody to SS-A measurement Dr. Valeriano Choe MD Work Phone: Comment on above: Test not performed Start: 09-12-2024 Assay of phosphorus inorganic Dr. Dalila Choe MD Work Phone: Start: 09-12-[address] Valeriano peña MD Work Phone: Comment on above: Test not performed Start: 09-12-[address] Valeriano lua MD Work Phone: Start: 09-12-2024 Copper measurement, serum Dr. Valeriano lua MD Work Phone: Comment on above: Detection Limit = 5 Start: 09-12-[address] Valeriano zee MD Work Phone: Comment on above: Performed at: [facility] [id number] [place], [place] [id number] Director: José Miguel Alba PhD, Phone: [phone] at: - [facility] [id number] Director: Zafar Browne MD, Phone: [phone] Start: 09-12-2024 Measurement of renal function Dr. Dalila Choe MD Work Phone: Comment on above: GFR Calc Start: 09-12-2024 RESEARCH PROJECT MANAGER antibody measurement Dr. Valeriano peña MD Work Phone: Comment on above: Test not performed Start: 09-12-2024 Total iron binding capacity measurement Dr. Valeriano Choe MD Work Phone: Start: 09-06-2024 Computed tomography of abdomen and pelvis with contrast Dr. Valeriano Choe MD Work Phone: Start: 05-01-2024 [employer] COVID-19 VACCINE AGE 12+ YR (COMIRNATY) Suzanna Dawson PA-C Work Phone: Start: 04-04-2024 Lipid 1996 panel - Serum or Plasma Ganesh White MA Start: 02-08-2024 Ct angiography head w/contrast/noncontrast Patria [place] MD Work Phone: Start: 02-08-2024 Ct angiography neck w/contrast/noncontrast Patria [place] MD Work Phone: Start: 02-06-2024 Mra neck w/o contrst material Patria [place] MD Work Phone: Start: 10-17-2023 Lipid 1996 panel - Serum or Plasma Valeriano Choe MD Work Phone: Start: 09-01-2023 X-ray of lumbosacral spine Dr. Valeriano zee Work Phone: Start: 04-20-2023 INFLUENZA VACCINE, PRSV FREE, AGE 65+ YR, HIGH DOSE, QUADRIVALENT (FLUZONE HIGH-DOSE) Valeriano Choe MD Work Phone: Start: 04-14-2023 Lipid 1996 panel - Serum or Plasma Valeriano Choe MD Work Phone: Start: 12-13-2022 CBC W/DIFF/PLT (EXTERNAL LAB RALF) [facility] Start: 12-13-2022 FERRITIN BLD [facility] Provider Start: 12-13-2022 IRON PANEL (OUTSIDE) [facility] Start: 09-05-2022 Colonoscopy Valeriano Choe MD Work Phone: Start: 09-04-[address] Valeriano Choe Work Phone: Start: 09-03-2022 Computed tomography of abdomen and pelvis with intravenous contrast Dr. Valeriano Choe Work Phone: Start: 09-03-[address] Valeriano Choe Work Phone: Start: 01-27-[address] [...] LM, LAD and LCX. Discussed with in quality assurance/r&d lab technician - Will consult him for CABG in 6 weeks time Start: 03-24-2016 Colonoscopy Ganesh White MA Colonoscopy DR FRANKLIN NASH MD Enteric Bacteriology Dr. Jett Choe Work Phone: History of placement of stent for coronary artery disease History of coronary artery stent placement Patria [place] MD Work Phone: Lactoferrin measurement Dr. Valeriano Choe Work Phone: Nucleic acid assay Dr. Gabriele Choe Work Phone: Plan of Treatment Date Care Activity Detail Author Start: 11-06-2034 Urine microalbumin profile DTaP,Tdap,Td Vaccine (3 - Td or Tdap) [facility] Start: 10-30-2029 Lipid panel Lipid Screening [facility] Start: 04-04-2029 Lipid panel Lipid Screening [facility] Start: 10-16-2028 Lipid panel Lipid Screening [facility] Start: 04-14-2028 Lipid 1996 panel - Serum or Plasma Lipid Screening [facility] Start: 04-14-2028 Lipid panel Lipid Screening [facility] Start: 03-20-2028 Screening for malignant neoplasm of colon [facility] Start: 10-31-2027 Diabetes Screening Diabetes Screening [facility] Start: 10-06-2027 LIPID SCREEN LIPID SCREEN [facility] Start: 09-26-2027 Diabetes Screening Diabetes Screening [facility] Start: 09-14-2027 LIPID SCREEN LIPID SCREEN [facility] Start: 04-13-2027 LIPID SCREEN LIPID SCREEN [facility] Start: 04-04-2027 Diabetes Screening Diabetes Screening [facility] Start: 10-16-2026 Diabetes Screening Diabetes Screening [facility] Start: 04-14-2026 Diabetes Screening Diabetes Screening [facility] Start: 03-24-2026 Colonoscopy COLONOSCOPY [facility] Start: 03-24-2026 COLORECTAL CANCER SCREENING COLORECTAL CANCER SCREENING [facility] Start: 03-15-2026 LIPID SCREEN LIPID SCREEN [facility] Start: 01-30-2026 Annual PCP Team Chronic Disease Visit Annual PCP Team Chronic Disease Visit [facility] Start: 01-01-2026 Annual PCP Team Chronic Disease Visit Annual PCP Team Chronic Disease Visit [facility] Start: 11-01-2025 Annual PCP Team Chronic Disease Visit Annual PCP Team Chronic Disease Visit [facility] Start: 11-01-2025 BP Controlled (<130/80) BP Controlled (<130/80) [facility] in Start: 11-01-2025 Covid-19 Vaccine ( season) Covid-19 Vaccine () [facility] Comment on above: Postponed from 10/30/2024 (Declined at t his time) Start: 11-01-2025 Hepatitis A Vaccine (1 of 2 - Risk 2-dose series) Hepatitis A Vaccine (1 of 2 - Risk 2-dose series) [facility] Comment on above: Postponed from 1969 (Declined at t his time) Start: 11-01-2025 Hepatitis B Vaccine (1 of 3 - Risk 3-dose series) Hepatitis B Vaccine (1 of 3 - Risk 3-dose series) [facility] Comment on above: Postponed from 2010 (Declined at t his time) Start: 11-01-2025 RSV Vaccine (1 - Risk 60-74 years 1-dose series) RSV Vaccine (1 - Risk 60-74 years 1-dose series) [facility] Comment on above: Postponed from 2010 (Declined at t his time) Start: 11-01-2025 Shingrix Vaccine (1 of 2) Shingrix Vaccine (1 of 2) [facility] Comment on above: Postponed from 2000 (Declined at t his time) Start: 11-01-2025 Urine microalbumin profile DTaP,Tdap,Td Vaccine (2 - Td or Tdap) [facility] Comment on above: Postponed from 03/04/2018 (Declined at t his time) Start: 10-30-2025 Hepatitis B surface antibody level LDL Cholesterol [facility] Start: 10-23-2025 BP Controlled (<130/80) BP Controlled (<130/80) [facility] Start: 2025 RSV Vaccine (1 - 1-dose 75+ series) RSV Vaccine (1 - 1-dose 75+ series) [facility] Start: 09-14-2025 DIABETES SCREEN DIABETES SCREEN [facility] Start: 09-05-2025 Colonoscopy COLONOSCOPY [facility] Start: 09-05-2025 COLORECTAL CANCER SCREENING COLORECTAL CANCER SCREENING [facility] Start: 09-05-2025 Screening for malignant neoplasm of colon [facility] Start: 08-19-2025 BP Controlled (<130/80) BP Controlled (<130/80) [facility] Start: 07-31-2025 Annual PCP Team Chronic Disease Visit Annual PCP Team Chronic Disease Visit [facility] Start: 07-31-2025 BP Controlled (<130/80) BP Controlled (<130/80) [facility] Start: 05-29-2025 Annual PCP Team Chronic Disease Visit Annual PCP Team Chronic Disease Visit [facility] Start: 05-29-2025 BP Controlled (<130/80) BP Controlled (<130/80) [facility] Start: 05-12-2025 Plain X-ray abdomen Abdomen Single View [facility] Start: 05-12-2025 End: 05-12-2025 Patient encounter procedure Departed Clinical -Radiology [facility] Work Phone: Start: 05-08-2025 Radionuclide imaging of perfusion of myocardium under exercise stress [facility] Start: 05-06-2025 End: 05-06-2025 Patient encounter procedure 05/06/2025 1:40 PM EDT Office Visit Family [facility] [place] [address] [place] [address] Valeriano Choe MD [address] [place] [phone] medicare wellness [facility] [place] Comment on above: medicare wellness Start: 05-01-2025 Annual PCP Team Chronic Disease Visit Annual PCP Team Chronic Disease Visit [facility] Start: 05-01-2025 BP Controlled (<130/80) BP Controlled (<130/80) [facility] Start: 04-24-2025 End: 04-24-2025 ambulatory [facility] Comment on above: CBC/CMP/Myeloma labs with urine* OV* Start: 04-16-2025 End: 04-16-2025 Patient encounter procedure 04/16/2025 11:30 AM EDT Office Visit Neurology [address] [place] [address] Tayler Ellis PA-C [address] [place] [address] 3 month follow up, Neuropathy - Gabapentin Neurology Comment on above: 3 month follow up, Neuropathy - Gabapent in Start: 04-13-2025 DIABETES SCREEN DIABETES SCREEN [facility] Start: 04-04-2025 Annual PCP Team Chronic Disease Visit Annual PCP Team Chronic Disease Visit [facility] Start: 04-04-2025 Hepatitis B surface antibody level LDL Cholesterol [facility] Start: 03-24-2025 Influenza vaccination Influenza Vaccine (#1) [facility] Start: 03-20-2025 Colonoscopy w/biopsy single/multiple COLONOSCOPY AND BIOPSY [facility] Start: 03-20-2025 Colsc flexible w/control bleeding any method COLONOSCOPY W/CONTROL BLEED [facility] Start: 03-20-2025 Patient discharge [facility] Start: 01-30-2025 End: 01-30-2025 Patient encounter procedure 01/30/2025 11:20 AM EDT Office Visit Family Medicine [place] [address] [place] [address] Valeriano Choe MD [address] [place] [id number] [facility] discharge 01/25/25 - GI Bleed Family [facility] Comment on above: [facility] discharge 01/25/25 - GI Bleed Start: 01-25-2025 Patient discharge [facility] Start: 01-24-2025 [facility] Start: 01-23-2025 Application of intermittent pneumatic compression device [facility] Start: 01-23-2025 Following clinical pathway protocol [facility] Start: 01-23-2025 Assessment of risk of venous thromboembolism [facility] Start: 01-23-2025 Documentation procedure [facility] Start: 01-23-2025 Insertion of catheter into peripheral vein [facility] Start: 01-23-2025 Measuring intake and output [facility] Start: 01-23-2025 Oxygen therapy [facility] Start: 01-23-2025 Providing care according to standard [facility] Start: 01-23-2025 Provision of activity privileges [facility] Start: 01-23-2025 Referral for physical therapy [facility] Start: 01-23-2025 Referral to gastroenterology service [facility] Start: 01-23-2025 Referral to service [facility] Start: 01-23-2025 [facility] Start: 01-23-2025 Admission procedure [facility] Start: 01-23-2025 Verification routine [facility] Start: 01-23-2025 Hospital admission, emergency, from emergency room, medical nature [facility] Start: 01-23-2025 Urine culture Urine Culture [facility] Start: 12-30-2024 Patient discharge [facility] Start: 12-30-2024 Care planning and problem solving actions [facility] Start: 12-29-2024 Bacteria identified in Blood by Culture Blood Culture [facility] Start: 12-29-2024 [facility] Start: 12-29-2024 Following clinical pathway protocol [facility] Start: 12-29-2024 Oxygen therapy [facility] Start: 12-29-2024 [facility] Start: 12-28-2024 Microscopic observation [Identifier] in Unspecified specimen by Gram stain [facility] Start: 12-28-2024 Respiratory microbial culture Respiratory Culture [facility] Start: 12-27-2024 Following clinical pathway protocol [facility] Start: 12-27-2024 Assessment of risk of venous thromboembolism [facility] Start: 12-27-2024 Consultation [facility] Start: 12-27-2024 Continuous pulse oximetry [facility] Start: 12-27-2024 Elevation of head of bed [facility] Start: 12-27-2024 Insertion of catheter into peripheral vein [facility] Start: 12-27-2024 Measuring intake and output [facility] Start: 12-27-2024 Patient referral to dietitian [facility] Start: 12-27-2024 Providing care according to standard [facility] Start: 12-27-2024 Referral to service [facility] Start: 12-27-2024 Removal of urinary catheter [facility] Start: 12-27-2024 Vital signs measurements [facility] Start: 12-27-2024 [facility] Start: 12-27-2024 Hospital admission, emergency, from emergency room, medical nature [facility] Start: 12-27-2024 Verification routine [facility] Start: 12-27-2024 Airway suction technique [facility] Start: 12-27-2024 Microscopic observation [Identifier] in Unspecified specimen by Gram stain [facility] Start: 12-27-2024 Respiratory Culture Respiratory Culture [facility] Start: 12-27-2024 Admission procedure [facility] Start: 12-27-2024 Creatine kinase [Enzymatic activity/volume] in Serum or Plasma [facility] Start: 12-27-2024 Triglycerides measurement [facility] Start: 12-27-2024 End: 12-28-2024 [facility] Start: 12-27-2024 [facility] Start: 12-23-2024 End: 03-24-2025 Cobalamin (Vitamin B12) [Mass/volume] in Serum or Plasma [facility] Work Phone: Comment on above: Expected: 12/23/2024, Expires: Start: 12-23-2024 End: 12-23-2024 Patient encounter procedure 12/23/2024 2:00 PM EDT Office Visit Neurology [address] [place] [phone] Patria [place] Jr., MD [address] [place], [place] [phone] 8 WEEK FOLLOW UP Neurology Comment on above: 8 WEEK FOLLOW UP Start: 11-06-2024 End: 11-06-2024 Patient encounter procedure 11/06/2024 11:30 AM EDT Appointment Radiology [address] [place], [place] [phone] Dx: Screening for abdominal aortic aneurysm [Z13.6] Radiology Comment on above: Dx: Screening for abdominal aortic aneur ysm [Z13.6] Start: 11-01-2024 End: 11-01-2024 Patient encounter procedure 11/01/2024 11:00 AM EDT Office Visit Family Medicine [place] [address] [facility] [place] [phone] Ni Sauceda APRN.PATHOLOGY TECH [address] [place], [place] [phone] 6 month routine follow up [facility] Comment on above: 6 month routine follow up Start: 10-30-2024 End: 01-29-2025 25-hydroxyvitamin D3 [Mass/volume] in Serum or Plasma VITAMIN D 25 HYDROXY Lab Routine Low vitamin D level Expected: 10/30/2024, Expires: 01/29/2025 [facility] Comment on above: Expected: 10/30/2024, Expires: Start: 10-30-2024 End: 01-29-2025 CBC W Auto Differential panel - Blood COMPLETE BLOOD COUNT AND DIFFERENTIAL Lab Routine Essential hypertension, benign Expected: 10/30/2024, Expires: 01/29/2025 [facility] Comment on above: Expected: 10/30/2024, Expires: Start: 10-30-2024 End: 01-29-2025 Cobalamin (Vitamin B12) [Mass/volume] in Serum or Plasma VITAMIN B12 Lab Routine Low serum vitamin B12 Expected: 10/30/2024, Expires: 01/29/2025 [facility] Comment on above: Expected: 10/30/2024, Expires: Start: 10-30-2024 End: 01-29-2025 Comprehensive metabolic 2000 panel - Serum or Plasma COMPREHENSIVE METABOLIC PANEL Lab Routine Essential hypertension, benign Expected: 10/30/2024, Expires: 01/29/2025 [facility] Comment on above: Expected: 10/30/2024, Expires: Start: 10-30-2024 Covid-19 Vaccine () Covid-19 Vaccine () [facility] Start: 10-30-2024 End: 01-29-2025 LIPID PANEL, NONFASTING LIPID PANEL, NONFASTING Lab Routine Mixed hyperlipidemia Expected: 10/30/2024, Expires: 01/29/2025 [facility] Comment on above: Expected: 10/30/2024, Expires: Start: 10-30-2024 End: 01-29-2025 Prostate Specific Ag Free [Mass/volume] in Serum or Plasma PROSTATE SPECIFIC ANTIGEN, FREE Lab Routine Elevated PSA Expected: 10/30/2024, Expires: 01/29/2025 [facility] Comment on above: Expected: 10/30/2024, Expires: Start: 10-30-2024 End: 01-29-2025 Urate [Mass/volume] in Serum or Plasma URIC ACID Lab Routine Gout without tophus Expected: 10/30/2024, Expires: 01/29/[address] [facility] Work Phone: Comment on above: Expected: 10/30/2024, Expires: Start: 10-30-2024 End: 01-29-2025 Urinalysis complete panel - Urine URINALYSIS, WITH MICROSCOPIC Lab Routine Essential hypertension, benign Expected: 10/30/2024, Expires: 01/29/2025 [facility] Comment on above: Expected: 10/30/2024, Expires: Start: 10-30-2024 End: 10-30-2024 ambulatory 10/30/2024 11:00 AM EDT Results Only [facility] [address] [facility] [place] [address] Lab [facility] Comment on above: Lab Start: 10-23-2024 End: 10-23-2024 ambulatory 10/23/2024 11:10 AM EDT Visit (SP) Office Hematology/Oncology [address] [place] [address] Stephanie Stallings DO [address] [place] [id number] OV/LAB&24 HR URINE 10/21* Hematology/Oncology Comment on above: OV/LAB&24 HR URINE 10/21* Start: 10-21-2024 End: 10-21-2024 ambulatory 10/21/2024 11:00 AM EDT Results Only [facility] [address] [place] [address] LAB/24 HR URINE [facility] Comment on above: LAB/24 HR URINE Start: 10-18-2024 Annual PCP Team Chronic Disease Visit Annual PCP Team Chronic Disease Visit [facility] Start: 10-16-2024 Hepatitis B surface antibody level LDL Cholesterol [facility] Start: 10-03-2024 End: 10-03-2024 Patient encounter procedure 10/03/2024 11:00 AM EDT Office Visit Family [facility] [address] [facility] [place] [address] Ni Sauceda APRN.[facility] [address] [place] [address] 6 month routine follow up [facility] Comment on above: 6 month routine follow up Start: 09-27-2024 End: 12-27-2024 Calcium.ionized [Moles/volume] in Blood CALCIUM, IONIZED Lab Routine Hypercalcemia Expected: 09/27/2024, Expires: 12/27/[address] [facility] Work Phone: Comment on above: Expected: 09/27/2024, Expires: Start: 09-25-2024 End: 12-25-2024 Cobalamin (Vitamin B12) [Mass/volume] in Serum or Plasma [facility] Comment on above: Expected: 09/25/2024, Expires: Start: 09-25-2024 End: 12-25-2024 COPPER BLOOD [facility] Comment on above: Expected: 09/25/2024, Expires: Start: 09-25-2024 End: 12-25-2024 Folate [Mass/volume] in Serum or Plasma [facility] Comment on above: Expected: 09/25/2024, Expires: Start: 09-25-2024 End: 09-25-2024 [facility] visit new patient 09/25/2024 2:00 PM EST Visit (SP) Office Hematology/Oncology [address] [place] [address] Stephanie Stallings DO [address] [place] [address] NEW PATIENT Hematology/Oncology Comment on above: NEW PATIENT Start: 09-25-2024 End: 12-25-2024 Methylmalonate [Moles/volume] in Serum or Plasma [facility] Comment on above: Expected: 09/25/2024, Expires: Start: 09-25-2024 End: 12-25-2024 [facility] Comment on above: Expected: 09/25/2024, Expires: Start: 09-25-2024 End: 12-25-2024 MONOCLONAL PROTEIN, SERUM (BLOOD) [facility] Comment on above: Expected: 09/25/2024, Expires: Start: 09-25-2024 End: 12-25-2024 PROTEIN ELECT RND UR W/[facility] Comment on above: Expected: 09/25/2024, Expires: Start: 09-25-2024 End: 12-25-2024 PROTEIN ELECTROPHORESIS SERUM W/[facility] Work Phone: Comment on above: Expected: 09/25/2024, Expires: Start: 09-03-2024 End: 09-03-2024 ambulatory 09/03/2024 3:10 PM EST [facility] Rheumatology [facility] [place] [address] Nyla Ferguson DO [address] [place] [address] Positive GALLO (antinuclear antibody) [R76.8] Rheumatology Comment on above: Positive GALLO (antinuclear antibody) [R76 .8] Start: 09-03-2024 End: 12-03-2024 C reactive protein [Mass/volume] in Serum or Plasma C-REACTIVE PROTEIN Lab Routine Positive GALLO (antinuclear antibody) Expected: 09/03/2024, Expires: 12/03/2024 [facility] Comment on above: Expected: 09/03/2024, Expires: Start: 09-03-2024 End: 12-03-2024 CBC W Auto Differential panel - Blood COMPLETE BLOOD COUNT AND DIFFERENTIAL Lab Routine Positive GALLO (antinuclear antibody) Expected: 09/03/2024, Expires: 12/03/2024 [facility] Comment on above: Expected: 09/03/2024, Expires: Start: 09-03-2024 End: 12-03-2024 Complement C3 [Mass/volume] in Serum or Plasma C3 COMPLEMENT Lab Routine Positive GALLO (antinuclear antibody) Expected: 09/03/2024, Expires: 12/03/[address] [facility] Work Phone: Comment on above: Expected: 09/03/2024, Expires: Start: 09-03-2024 End: 12-03-2024 Complement C4 [Mass/volume] in Serum or Plasma C4 COMPLEMENT Lab Routine Positive GALLO (antinuclear antibody) Expected: 09/03/2024, Expires: 12/03/2024 [facility] Comment on above: Expected: 09/03/2024, Expires: Start: 09-03-2024 End: 12-03-2024 Comprehensive metabolic 2000 panel - Serum or Plasma COMPREHENSIVE METABOLIC PANEL Lab Routine Positive GALLO (antinuclear antibody) Expected: 09/03/2024, Expires: 12/03/2024 [facility] Comment on above: Expected: 09/03/2024, Expires: Start: 09-03-2024 End: 12-03-2024 DNA ANTIBODY DS BLD DNA ANTIBODY DS BLD Lab Routine Positive GALLO (antinuclear antibody) Expected: 09/03/2024, Expires: 12/03/2024 [facility] Comment on above: Expected: 09/03/2024, Expires: Start: 09-03-2024 End: 12-03-2024 Erythrocyte sedimentation rate SEDIMENTATION RATE, WESTERGREN Lab Routine Positive GALLO (antinuclear antibody) Expected: 09/03/2024, Expires: 12/03/2024 [facility] Comment on above: Expected: 09/03/2024, Expires: Start: 08-30-2024 End: 08-30-2024 Patient encounter procedure Neurology Comment on above: f/u balance, abnormal ga it, numbness, neuropathy, hx of CAD, Hx of stent- RACHAEL 12/31 WJN, labs ordered, MRI, MRA x2 Start: 08-30-2024 End: 11-29-2024 KAPPA/NEUMANN,FREE,SER [facility] Comment on above: Expected: 08/30/2024, Expires: Start: 08-30-2024 End: 11-29-2024 PROTEIN ELECTROPHORESIS SERUM W/INTERP [facility] Work Phone: Comment on above: Expected: 08/30/2024, Expires: Start: 08-19-2024 End: 08-19-2024 Patient encounter procedure 08/19/2024 1:30 PM EST Office Visit Allergy [address] [address] Arun Acosta, [address] [place] [address] Angioedema, subsequent encounter [T78.3XXD] Allergy Comment on above: Angioedema, subsequent encounter [T78.3X XD] Start: 07-24-2024 Advance Directive Discussion Advance Directive Discussion [facility] Start: 07-24-2024 Medicare Advantage Annual Wellness Visit Medicare Advantage Annual Wellness Visit [facility] Start: 07-18-2024 [facility] Start: 07-12-2024 End: 07-12-2024 Patient encounter procedure 07/12/2024 4:40 PM EST Office Visit Neurology [address] [place] [address] Patria [place] Jr., MD [address] [phone] follow up Neurology Comment on above: follow up Start: 07-10-2024 Annual PCP Team Chronic Disease Visit Annual PCP Team Chronic Disease Visit [facility] Start: 05-29-2024 End: 05-29-2024 Patient encounter procedure 05/29/2024 1:00 PM EST Office Visit [facility] [place] [address] [place] [address] Suzanna Dawson PA-C [address] [place] [address] bp recheck [facility] [place] Comment on above: bp recheck Start: 05-18-2024 Annual PCP Team Chronic Disease Visit Annual PCP Team Chronic Disease Visit [facility] Start: 05-01-2024 End: 05-01-2024 Patient encounter procedure 05/01/2024 1:00 PM EDT Office Visit Family Medicine [place] [address] [facility] [place] [address] Suzanna Dawson PA-C [address] [place] [address] Medicare Wellness (rescheduled from 04/24 with PCP) [facility] [place] Comment on above: Medicare Wellness (rescheduled from 04/24 with PCP) Start: 04-24-2024 End: 04-24-2024 Patient encounter procedure 04/24/2024 1:00 PM EDT Office Visit Family Medicine [place] [address] [facility] [place] [address] Valeriano Choe MD [address] [place] [address] Medicare Wellness [facility] [place] Comment on above: Medicare Wellness Start: 04-20-2024 Annual PCP Team Chronic Disease Visit Annual PCP Team Chronic Disease Visit [facility] Start: 04-20-2024 Covid-19 Vaccine ( season) Covid-19 Vaccine () [facility] Comment on above: Postponed from 03/24/2023 (Not Currently Available) Start: 04-20-2024 Covid-19 Vaccine (3 - Booster for Soy series) Covid-19 Vaccine (3 - Booster for Soy series) [facility] Comment on above: Postponed from 07/22/2021 (Not Currently Available) Start: 04-20-2024 Shingrix Vaccine (1 of 2) Shingrix Vaccine (1 of 2) [facility] Comment on above: Postponed from 2000 (Insurance Cov erage) Start: 04-20-2024 Urine microalbumin profile DTaP,Tdap,Td Vaccine (2 - Td or Tdap) [facility] Comment on above: Postponed from 03/04/2018 (Insurance Cov erage) Start: 04-14-2024 Hepatitis B surface antibody level LDL Cholesterol [facility] Start: 04-04-2024 End: 04-04-2024 Patient encounter procedure 04/04/2024 11:40 AM EDT Office Visit [facility] [address] [place] [address] Ni Sauceda APRN.[facility] [address] [place] [address] ER Follow [facility] Monday03/29/2024 Tongue Swelling [facility] Comment on above: ER Follow [facility] Monday03/29/2024 Tongue Swelling Start: 03-24-2024 Covid-19 Vaccine ( season) Covid-19 Vaccine ( season) [facility] Start: 03-24-2024 Covid-19 Vaccine ( season) Covid-19 Vaccine ( season) [facility] Start: 03-24-2024 Influenza vaccination Influenza Vaccine (#1) [facility] Start: 03-15-2024 DIABETES SCREEN DIABETES SCREEN [facility] Start: 02-07-2024 End: 05-08-2024 CREATININE BLD CREATININE BLD Lab Routine Nephropathy screen Expected: 02/07/2024, Expires: 05/08/2024 [facility] Comment on above: Expected: 02/07/2024, Expires: Start: 02-06-2024 End: 02-06-2024 Patient encounter procedure Radiology Comment on above: Other symptoms and signs involving the n ervous system [R29.818] Start: 01-01-2024 End: 01-01-2024 Patient encounter procedure 01/01/2024 3:40 PM EDT Office Visit Neurology [address] [place] [address] Patria [place] Jr., MD [address] [facility] [place] [phone] Balance problems [R26.89] Neurology Comment on above: Balance problems [R26.89] Start: 01-01-2024 End: 04-01-2024 GALLO BY IFA WITH REFLEX GALLO BY IFA WITH REFLEX Lab Routine Balance problems Neuropathy Abnormality of gait Expected: 01/01/2024, Expires: 04/01/2024 [facility] Comment on above: Expected: 01/01/2024, Expires: Start: 01-01-2024 End: 04-01-2024 Erythrocyte sedimentation rate SEDIMENTATION RATE, WESTERGREN Lab Routine Balance problems Neuropathy Abnormality of gait Expected: 01/01/2024, Expires: 04/01/2024 [facility] Comment on above: Expected: 01/01/2024, Expires: Start: 01-01-2024 End: 04-01-2024 HEAVY METALS SCRN BL HEAVY METALS SCRN BL Lab Routine Balance problems Neuropathy Abnormality of gait Expected: 01/01/2024, Expires: 04/01/[address] [facility] Work Phone: Comment on above: Expected: 01/01/2024, Expires: 4 Start: 01-01-2024 End: 04-01-2024 Methylmalonate [Moles/volume] in Serum or Plasma METHYLMALONIC ACID Lab Routine Balance problems Neuropathy Abnormality of gait Expected: 01/01/2024, Expires: 04/01/2024 [facility] Comment on above: Expected: 01/01/2024, Expires: 4 Start: 01-01-2024 End: 04-01-2024 PROTEIN ELECTROPHORESIS SERUM W/INTERP PROTEIN ELECTROPHORESIS SERUM W/INTERP Lab Routine Balance problems Neuropathy Abnormality of gait Expected: 01/01/2024, Expires: 04/01/2024 [facility] Comment on above: Expected: 01/01/2024, Expires: Start: 01-01-2024 End: 04-01-2024 Pyridoxine [Mass/volume] in Serum or Plasma VITAMIN B6/PYRIDOXIN Lab Routine Balance problems Neuropathy Abnormality of gait Expected: 01/01/2024, Expires: 04/01/2024 [facility] Comment on above: Expected: 01/01/2024, Expires: Start: 10-17-2023 End: 01-16-2024 Cobalamin (Vitamin B12) [Mass/volume] in Serum or Plasma [facility] Work Phone: Comment on above: Expected: 10/17/2023, Expires: Start: 10-17-2023 End: 01-16-2024 Comprehensive metabolic 2000 panel - Serum or Plasma [facility] Work Phone: Comment on above: Expected: 10/17/2023, Expires: Start: 10-17-2023 End: 01-16-2024 LIPID PANEL, NONFASTING [facility] Work Phone: Comment on above: Expected: 10/17/2023, Expires: Start: 10-17-2023 End: 01-16-2024 Prostate Specific Ag Free [Mass/volume] in Serum or Plasma [facility] Work Phone: Comment on above: Expected: 10/17/2023, Expires: Start: 10-17-2023 End: 01-16-2024 Urate [Mass/volume] in Serum or Plasma [facility] Work Phone: Comment on above: Expected: 10/17/2023, Expires: Start: 10-13-2023 ANNUAL PCP TEAM CHRONIC DISEASE VISIT ANNUAL PCP TEAM CHRONIC DISEASE VISIT [facility] Start: 10-06-2023 Hepatitis B surface antibody level LDL CHOLESTEROL [facility] Start: 09-14-2023 ANNUAL PCP TEAM CHRONIC DISEASE VISIT ANNUAL PCP TEAM CHRONIC DISEASE VISIT [facility] Start: 09-14-2023 BP CONTROLLED (<130/80) BP CONTROLLED (<130/80) [facility] Start: 09-14-2023 Hepatitis B surface antibody level LDL CHOLESTEROL [facility] Start: 08-21-2023 End: 11-20-2023 CREATININE BLD CREATININE BLD Lab Routine Essential hypertension, benign Kidney lesion Expected: 08/21/2023, Expires: 11/20/[address] [facility] Work Phone: Comment on above: Expected: 08/21/2023, Expires: 4 Start: 07-24-2023 Advance Directive Discussion Advance Directive Discussion [facility] Start: 04-18-2023 ANNUAL PCP TEAM CHRONIC DISEASE VISIT ANNUAL PCP TEAM CHRONIC DISEASE VISIT [facility] Start: 04-18-2023 SHINGRIX VACCINE (1 of 2) SHINGRIX VACCINE (1 of 2) [facility] Comment on above: Postponed from 2000 (Insurance Cov erage) Start: 04-18-2023 Urine microalbumin profile DTAP,TDAP,TD (2 - Td or Tdap) [facility] Comment on above: Postponed from 03/04/2018 (Insurance Cov erage) Start: 04-14-2023 End: 06-14-2023 25-hydroxyvitamin D3 [Mass/volume] in Serum or Plasma VITAMIN D 25 HYDROXY Lab Routine Low vitamin D level Expected: 04/14/2023, Expires: 06/14/[address] [facility] Work Phone: Comment on above: Expected: 04/14/2023, Expires: 3 Start: 04-14-2023 End: 06-14-2023 CBC W Auto Differential panel - Blood CBC + DIFF Lab Routine Essential hypertension, benign NSTEMI (non-ST elevated myocardial infarction) (HCC) Coronary artery disease due to lipid rich plaque Expected: 04/14/2023, Expires: 06/14/[address] [facility] Work Phone: Comment on above: Expected: 04/14/2023, Expires: 3 Start: 04-14-2023 End: 06-14-2023 Comprehensive metabolic 2000 panel - Serum or Plasma COMP METABOLIC PANEL Lab Routine Essential hypertension, benign Expected: 04/14/2023, Expires: 06/14/[address] [facility] Work Phone: Comment on above: Expected: 04/14/2023, Expires: 3 Start: 04-14-2023 End: 06-14-2023 LIPID PANEL, NONFASTING LIPID PANEL, NONFASTING Lab Routine Mixed hyperlipidemia Expected: 04/14/2023, Expires: 06/14/[address] [facility] Work Phone: Comment on above: Expected: 04/14/2023, Expires: 3 Start: 04-14-2023 End: 06-14-2023 Prostate Specific Ag Free [Mass/volume] in Serum or Plasma PSA FREE Lab Routine Elevated PSA Expected: 04/14/2023, Expires: 06/14/[address] [facility] Work Phone: Comment on above: Expected: 04/14/2023, Expires: 3 Start: 04-14-2023 End: 06-14-2023 Urate [Mass/volume] in Serum or Plasma URIC ACID BLOOD Lab Routine Gout without tophus Expected: 04/14/2023, Expires: 06/14/[address] [facility] Work Phone: Comment on above: Expected: 04/14/2023, Expires: 3 Start: 04-14-2023 End: 06-14-2023 Urinalysis complete panel - Urine URINALYSIS, WITH MICROSCOPIC Lab Routine Essential hypertension, benign Expected: 04/14/2023, Expires: 06/14/[address] [facility] Work Phone: Comment on above: Expected: 04/14/2023, Expires: 3 Start: 04-13-2023 Hepatitis B surface antibody level LDL CHOLESTEROL [facility] Start: 03-24-2023 Influenza [facility] Start: 12-06-2022 ANNUAL PCP TEAM CHRONIC DISEASE VISIT ANNUAL PCP TEAM CHRONIC DISEASE VISIT [facility] Start: 10-12-2022 End: 12-12-2022 CBC W Auto Differential panel - Blood [facility] Work Phone: Comment on above: Expected: 10/12/2022, Expires: 3 Start: 10-12-2022 End: 12-12-2022 Iron and Iron binding capacity panel - Serum or Plasma [facility] Work Phone: Comment on above: Expected: 10/12/2022, Expires: 3 Start: 10-07-2022 End: 12-07-2022 Hepatic function 2000 panel - Serum or Plasma HEPATIC FUNCTION PNL Lab Routine Essential hypertension, benign Mixed hyperlipidemia Expected: 10/07/2022, Expires: 12/07/[address] [facility] Work Phone: Comment on above: Expected: 10/07/2022, Expires: 3 Start: 10-07-2022 End: 12-07-2022 LIPID PANEL, NONFASTING LIPID PANEL, NONFASTING Lab Routine Essential hypertension, benign Mixed hyperlipidemia Coronary artery disease due to lipid rich plaque Expected: 10/07/2022, Expires: 12/07/[address] [facility] Work Phone: Comment on above: Expected: 10/07/2022, Expires: 3 Start: 10-07-2022 End: 12-07-2022 Prostate Specific Ag Free [Mass/volume] in Serum or Plasma PSA FREE Lab Routine Elevated PSA Expected: 10/07/2022, Expires: 12/07/[address] [facility] Work Phone: Comment on above: Expected: 10/07/2022, Expires: 3 Start: 09-10-2022 Patient discharge [facility] Start: 09-10-2022 Patient discharge [facility] Start: 09-07-2022 Referral to occupational therapist [facility] Start: 09-07-2022 Referral to service [facility] Start: 09-06-2022 Patient referral [facility] Work Phone: Start: 09-06-2022 Notification of physician [facility] Start: 09-06-2022 Patient education [facility] Start: 09-06-2022 Provision of activity privileges [facility] Start: 09-06-2022 Pulse taking [facility] Start: 09-06-2022 Taking patient vital signs [facility] Start: 09-06-2022 Wound care [facility] Start: 09-06-2022 [facility] Start: 09-04-2022 End: 09-05-2022 [facility] Start: 09-04-2022 Administration of blood product [facility] Start: 09-04-2022 Administration of blood product [facility] Start: 09-04-2022 Catheterization of vein [facility] Start: 09-04-2022 Administration of blood product [facility] Start: 09-04-2022 Catheterization of vein [facility] Start: 09-04-2022 Medication not administered [facility] Start: 09-04-2022 Notification of physician [facility] Start: 09-03-2022 Chart related administrative procedure [facility] Start: 09-03-2022 Referral to audio experience expert [facility] Start: 09-02-2022 Application of intermittent pneumatic compression device [facility] Start: 09-02-2022 [facility] Start: 09-02-2022 Assessment of risk of venous thromboembolism [facility] Start: 09-02-2022 Fall prevention [facility] Start: 09-02-2022 Inhalation therapy procedure [facility] Start: 09-02-2022 Insertion of catheter into peripheral vein [facility] Start: 09-02-2022 Introduction of urinary catheter [facility] Start: 09-02-2022 Measuring intake and output [facility] Start: 09-02-2022 Providing care according to standard [facility] Start: 09-02-2022 Provision of activity privileges [facility] Start: 09-02-2022 Referral to gastroenterology service [facility] Start: 09-02-2022 Referral to service [facility] Start: 09-02-2022 [facility] Start: 09-02-2022 End: 09-02-2022 Following clinical pathway protocol [facility] Start: 09-02-2022 Admission procedure [facility] Start: 09-02-2022 Patient referral to dietitian [facility] Start: 07-24-2022 ADVANCE DIRECTIVE DISCUSSION ADVANCE DIRECTIVE DISCUSSION [facility] Start: 07-24-2022 DEPRESSION ASSESSMENT DEPRESSION ASSESSMENT [facility] Start: 05-25-2022 Patient referral to [facility] Start: 04-12-2022 End: 06-12-2022 25-hydroxyvitamin D3 [Mass/volume] in Serum or Plasma VITAMIN D 25 HYDROXY Lab Routine Low vitamin D level Expected: 04/12/2022, Expires: 06/12/[address] [facility] Work Phone: Comment on above: Expected: 04/12/2022, Expires: 2 Start: 04-12-2022 End: 06-12-2022 CBC W Auto Differential panel - Blood CBC + DIFF Lab Routine Medication management Expected: 04/12/2022, Expires: 06/12/[address] [facility] Work Phone: Comment on above: Expected: 04/12/2022, Expires: 2 Start: 04-12-2022 End: 06-12-2022 Comprehensive metabolic 2000 panel - Serum or Plasma COMP METABOLIC PANEL Lab Routine Essential hypertension, benign Mixed hyperlipidemia Expected: 04/12/2022, Expires: 06/12/[address] [facility] Work Phone: Comment on above: Expected: 04/12/2022, Expires: 2 Start: 04-12-2022 End: 06-12-2022 LIPID PANEL, NONFASTING LIPID PANEL, NONFASTING Lab Routine Coronary artery disease due to lipid rich plaque Essential hypertension, benign Mixed hyperlipidemia Expected: 04/12/2022, Expires: 06/12/[address] [facility] Work Phone: Comment on above: Expected: 04/12/2022, Expires: 2 Start: 04-12-2022 End: 06-12-2022 Prostate Specific Ag Free [Mass/volume] in Serum or Plasma PSA FREE Lab Routine Elevated PSA Expected: 04/12/2022, Expires: 06/12/[address] [facility] Work Phone: Comment on above: Expected: 04/12/2022, Expires: 2 Start: 04-12-2022 End: 06-12-2022 Urate [Mass/volume] in Serum or Plasma URIC ACID BLOOD Lab Routine Gout without tophus Expected: 04/12/2022, Expires: 06/12/[address] [facility] Work Phone: Comment on above: Expected: 04/12/2022, Expires: 2 Start: 04-12-2022 End: 06-12-2022 Urinalysis complete panel - Urine URINALYSIS, WITH MICROSCOPIC Lab Routine Essential hypertension, benign Mixed hyperlipidemia Expected: 04/12/2022, Expires: 06/12/[address] [facility] Work Phone: Comment on above: Expected: 04/12/2022, Expires: 2 Start: 03-25-2022 Patient referral to [facility] Work Phone: Start: 03-24-2022 Influenza vaccination [facility] Start: 03-15-2022 ANNUAL PCP TEAM CHRONIC DISEASE VISIT ANNUAL PCP TEAM CHRONIC DISEASE VISIT [facility] Start: 03-15-2022 BP CONTROLLED (<130/80) BP CONTROLLED (<130/80) [facility] Start: 03-15-2022 Hepatitis B surface antibody level LDL CHOLESTEROL [facility] Start: 03-15-2022 SHINGRIX VACCINE (1 of 2) SHINGRIX VACCINE (1 of 2) [facility] Comment on above: Postponed from 2000 (Insurance Cov erage) Start: 03-15-2022 Urine microalbumin profile DTAP,TDAP,TD (2 - Td or Tdap) [facility] Comment on above: Postponed from 03/04/2018 (Insurance Cov erage) Start: 09-24-2021 COVID-19 VACCINE (3 - Booster for Soy series) COVID-19 VACCINE (3 - Booster for Soy series) [facility] Start: 07-24-2021 ADVANCE DIRECTIVE DISCUSSION ADVANCE DIRECTIVE DISCUSSION [facility] Start: 07-24-2021 DEPRESSION ASSESSMENT DEPRESSION ASSESSMENT [facility] Start: 07-22-2021 COVID-19 VACCINE (3 - Booster for Soy series) COVID-19 VACCINE (3 - Booster for Soy series) [facility] Start: 11-26-2020 COVID-19 VACCINE (2 - Booster for Soy series) COVID-19 VACCINE (2 - Booster for Soy series) [facility] Start: 03-04-2018 Urine microalbumin profile [facility] Start: 03-08-2017 FECAL OCCULT BLOOD FECAL OCCULT BLOOD [facility] Start: 03-08-2017 Screening for malignant neoplasm of colon Fecal Occult Blood [facility] Start: 2010 Hepatitis B Vaccine (1 of 3 - Risk 3-dose series) Hepatitis B Vaccine (1 of 3 - Risk 3-dose series) [facility] Start: 2010 RSV Vaccine (1 - 1-dose 60+ series) RSV Vaccine (1 - 1-dose 60+ series) [facility] Start: 2010 RSV Vaccine (1 - Risk 60-74 years 1-dose series) RSV Vaccine (1 - Risk 60-74 years 1-dose series) [facility] Start: 2000 SHINGRIX VACCINE (1 of 2) SHINGRIX VACCINE (1 of 2) [facility] Start: 10-20-1995 COLOGUARD (FIT-DNA) COLOGUARD (FIT-DNA) [facility] Start: 10-20-[address] COLONOGRAPHY [facility] Start: 10-20-1995 Screening for malignant neoplasm of colon [facility] Start: 10-20-1995 SIGMOIDOSCOPY SIGMOIDOSCOPY [facility] Start: 1969 Hepatitis A Vaccine (1 of 2 - Risk 2-dose series) Hepatitis A Vaccine (1 of 2 - Risk 2-dose series) [facility] Start: 1950 Abdominal aortic aneurysm screening Abdominal Aortic Aneurysm Screening [facility] Bacteria identified in Sputum by Respiratory culture [facility] Basic metabolic 2008 panel with ionized calcium - Serum or Plasma [facility] Bilirubin measuremen t, urine [facility] Blood ammonia measurement [facility] C reactive protein [Mass/volume] in Serum or Plasma [facility] Calculus analysis [facility] CBC W Auto Different ial panel - Blood [facility] CBC W Auto Different ial panel - Blood [facility] Complement C1 estera se inhibitor.functional/Comp lement C1 esterase inhibitor.total in Serum or Plasma [facility] Comprehensive metabo lic 1999 panel - Serum or Plasma [facility] Comprehensive metabo lic 1999 panel - Serum or Plasma [facility] End: 09-19-2024 Ct abdomen w/o & w/contrast material CT KIDNEY WO/W IVCON Radiology Routine Other specified disorders of kidney and ureter Kidney lesion 1 Occurrences starting 08/21/2023 until 09/19/[address] [facility] Work Phone: Comment on above: 1 Occurrences starting 08/21/2023 until 09/19/2024 Ct abdomen w/o & w/contrast material CT KIDNEY WO/W IVCON Radiology Routine Other specified disorders of kidney and ureter Kidney lesion 08/28/2023 11:[address] [facility] Work Phone: End: 03-08-2025 CT Neck W contrast IV [facility] Comment on above: 1 Occurrences starting 02/07/2024 until 03/08/2025 End: 03-08-2025 CTA Head Arteries W contrast IV [facility] Work Phone: Comment on above: 1 Occurrences starting 02/07/2024 until 03/08/2025 Erythrocyte mean corpuscular volume determination [facility] Ferritin [Mass/volum e] in Serum or Plasma [facility] Folate [Moles/volume ] in Serum or Plasma [facility] Hematocrit [Volume Fraction] of Blood [facility] Hemoglobin [Mass/vol ume] in Blood [facility] Hemoglobin [Presence ] in Urine [facility] Hepatitis A virus Ig M Ab [Presence] in Serum [facility] Hepatitis B core ant ibody measurement, IgM type [facility] Hepatitis B surface antigen measurement [facility] Hepatitis C antibody measurement [facility] IgE [Units/volume] i n Serum or Plasma [facility] Iron and Iron bindin g capacity panel - Serum or Plasma [facility] Leukocytes [#/volume ] in Blood [facility] Lipid 1996 panel - S rosana or Plasma [facility] Liver stiffness by US.transient elastography [facility] Magnesium measurement [facility] Mean corpuscular hemoglobin concentration determination [facility] Mean corpuscular hemoglobin determination [facility] Measurement of keton es in urine using dipstick [facility] Measurement of weigh t of calculus [facility] Microscopic urinalysis [facility] MONOCLONAL PROT 24 U R W/INTERP MONOCLONAL PROT 24 UR W/INTERP Lab Routine Hypercalcemia Monoclonal gammopathy Ordered: 09/27/2024 [facility] Comment on above: Ordered: 09/27/2024 End: 01-30-2025 MR Brain WO contrast MRI BRAIN WO IVCON Radiology Routine Other symptoms and signs involving the nervous system 1 Occurrences starting 01/01/2024 until 01/30/2025 [facility] Comment on above: 1 Occurrences starting 01/01/2024 until 01/30/2025 End: 01-30-2025 MRA Head vessels WO contrast MRA BRAIN WO IVCON Radiology Routine Other symptoms and signs involving the nervous system 1 Occurrences starting 01/01/2024 until 01/30/2025 [facility] Comment on above: 1 Occurrences starting 01/01/2024 until 01/30/2025 End: 01-30-2025 MRA Neck vessels WO contrast MRA CAROTID WO IVCON Radiology Routine Other symptoms and signs involving the nervous system 1 Occurrences starting 01/01/2024 until 01/30/2025 [facility] Comment on above: 1 Occurrences starting 01/01/2024 until 01/30/2025 Neutrophil count [facility] Neutrophil percent differential count [facility] Origin of [facility] Patient Education ED Angioedema [facility] Work Phone: Patient referral [facility] Work Phone: pH of Urine [facility] Platelets [#/volume] in Blood [facility] PROT ELEC UR 24HR W/ M SPIKE (P) PROT ELEC UR 24HR W/M SPIKE (P) Lab Routine Hypercalcemia Monoclonal gammopathy Ordered: 09/27/2024 [facility] Comment on above: Ordered: 09/27/2024 PROT ELEC UR 24HR W/ M SPIKE AND INTERP PROT ELEC UR 24HR W/M SPIKE AND INTERP Lab Routine Hypercalcemia Monoclonal gammopathy Ordered: 09/27/2024 [facility] Comment on above: Ordered: 09/27/2024 Protein [Mass/time] in 24 hour Urine PROTEIN, 24 HOUR URINE Lab Routine Hypercalcemia Monoclonal gammopathy Ordered: 09/27/2024 [facility] Comment on above: Ordered: 09/27/2024 Prothrombin time [facility] Prothrombin time [facility] Red blood cell count [facility] Red cell distributio n width determination [facility] Removal impacted cer umen irrigation/lvg unilat AMBULATORY EAR LAVAGE/IRRIGATION Procedures Routine Excessive ear wax, right Ordered: 04/20/[address] [facility] Work Phone: Comment on above: Ordered: 04/20/2023 Specific gravity of Urine [facility] Specimen color determination [facility] Tryptase [Mass/volum e] in Serum or Plasma [facility] Urine blood test [facility] Urine dipstick for glucose [facility] Urine dipstick for leukocyte esterase [facility] Urine dipstick for nitrite [facility] Urine dipstick for protein [facility] Urine examination [facility] Urine microscopy: epithelial cells [facility] Urine Microscopy: wh ite cells [facility] Urobilinogen [Presen ce] in Urine [facility] End: 12-01-2025 US Abdominal Aorta for screening US SCREENING FOR AAA Radiology Routine Screening for abdominal aortic aneurysm 1 Occurrences starting 11/01/2024 until 12/01/[address] [facility] Work Phone: Comment on above: 1 Occurrences starting 11/01/2024 until 12/01/2025 US Carotid arteries [facility] Vitamin B12 measurement [facility] End: 11-22-2025 XR Bones Complete Survey Views XR BONE SURVEY ROUTINE Radiology Routine Monoclonal gammopathy 1 Occurrences starting 10/23/2024 until 11/22/[address] [facility] Work Phone: Comment on above: 1 Occurrences starting 10/23/2024 until 11/22/2025 XR Bones Complete Harry rvey Views XR BONE SURVEY ROUTINE Radiology Routine Monoclonal gammopathy 10/23/2024 2:49 PM EDT [facility] Immunizations Immunization Date Immunization Notes Care Provider Jeff banegas 11-06-2024 respiratory syncytia l virus (RSV) vaccine, bivalent (ABRYSVO) Suzanna Dawson PA-C Work Phone: [facility] 11-06-2024 tetanus toxoid, redu el diphtheria toxoid, and acellular pertussis vaccine, adsorbed Suzanna Dawson PA-C Work Phone: [facility] 05-01-2024 COVID-19 vaccine, ag e 12+ yr ([employer] COMIRNAT) Suzanna Dawson PA-C Work Phone: [facility] 05-01-2024 influenza, high dose seasonal, preservative-free Suzanna Dawson PA-C Work Phone: [facility] 05-01-2024 influenza virus vacc ine, unspecified formulation Nurse Wstr Work Phone: [facility] 04-20-2023 influenza (HD-IIV4) vaccine, age 65+ yr, high dose, quadrivalent, PF (FLUZONE HIGH-DOSE) Valeriano Choe MD Work Phone: [facility] 04-20-2023 pneumococcal (PCV20) vaccine, 20 valent (PREVNAR 20) Valeriano Choe MD Work Phone: [facility] 04-20-2023 pneumococcal Conjuga te, unspecified formulation Valeriano Choe MD Work Phone: [facility] Work Phone: 04-20-2023 influenza virus vacc ine, unspecified formulation Valeriano Choe MD Work Phone: [facility] 08-12-2019 influenza, high dose seasonal, preservative-free Ganesh White MA [facility] 08-01-2018 influenza, high dose seasonal, preservative-free Ganesh White MA [facility] 08-01-2018 pneumococcal conjuga te vaccine, 13 valent Ganesh White MA [facility] 01-07-2016 pneumococcal polysaccharide vaccine, 23 valent Ganesh White MA [facility] 07-16-2013 influenza virus vacc ine, unspecified formulation Ganesh White MA [facility] 07-12-2011 influenza virus vacc ine, unspecified formulation Ganesh White MA [facility] 03-04-2008 tetanus toxoid, redu el diphtheria toxoid, and acellular pertussis vaccine, adsorbed Ganesh White MA [facility] Work Phone: 06-02-2005 influenza virus vacc ine, unspecified formulation Ganesh White MA [facility] Work Phone: Payers Date Payer Category Payer Self-pay 2022 Medicare (Managed Care) [facility] MEDICARE HMO [id number] 2022 Unknown [id number] 2022 Medicare [id number] 2022 Private Health Insurance [id number] 2021 Medicare HUMANA MEDICARE HUMANA GOLD PLUS [id number] 2021-Present [phone] [address] [address] [place] [address] [facility] [id number] [id number] 2021 Medicare [id number]. [id number] 1950 Unknown [id number] 2.16.840.1.082520.3.579. 2.627 1950 Unknown [id number] 2.16.840.1.725574.3.579. 2.627 1950 Unknown [id number] 2.16.840.1.358774.3.579. 2.627 Unknown [id number] Unknown [id number] 2.16.840.1.334439.3.579. 2.462 Unknown [id number] 2.16840.1.097577.3.579. 2.462 Unknown [id number] 2.840.1.543252.3.579. 2.462 Unknown [id number] 2.840.1.130358.3.579. 2.462 Unknown [id number] 2.840.1.794373.3.579. 2.462 Unknown [id number] 2.840.1.310963.3.579. 2.462 Unknown [id number] 2.840.1.764059.3.579. 2.462 Unknown [id number] 2.840.1.316429.3.579. 2.462 Unknown [id number] 2.840.1.192135.3.579. 2.462 Unknown [id number] 2.840.1.687702.3.579. 2.462 Unknown [id number] 2.840.1.702798.3.579. 2.462 Unknown [id number] 2.16.840.1.670013.3.579. 2.462 Unknown [id number] 2.16.840.1.890627.3.579. 2.462 Unknown [id number] 2.16.840.1.474846.3.579. 2.462 Unknown [id number] 2.16.840.1.897597.3.579. 2.462 Unknown [id number] 2.16840.1.268227.3.579. 2.462 Unknown [id number] 2.16.840.1.351386.3.579. 2.462 Unknown [id number] 2.16.840.1.400102.3.579. 2.462 Unknown [id number] 2.16.840.1.218193.3.579. 2.462 Unknown [id number] 2.16.840.1.192466.3.579. 2.462 Unknown [id number] 2.16.840.1.107702.3.579. 2.462 Unknown [id number] 2.16.840.1.545085.3.579. 2.462 Unknown [id number] 2.16.840.1.504488.3.579. 2.462 Unknown [id number] 2.16.840.1.125314.3.579. 2.462 Unknown [id number] 2.16.840.1.773722.3.579. 2.462 Unknown [id number] 2.16.840.1.671179.3.579. 2.462 Unknown [id number] 2.16.840.1.499911.3.579. 2.462 Unknown [id number] 2.16.840.1.883854.3.579. 2.462 Unknown [id number] 2.16.840.1.284998.3.579. 2.462 Social History Date Type Detail Facility Tobacco smoking status [facility] Start: 1950 Sex Assigned At Male [facility] Start: 07-12-2011 End: 12-13-2021 Tobacco smoking status TNIS Never smoked tobacco [facility] Start: 03-17-2021 End: 03-20-2025 Alcohol intake Current drinker of alcohol (finding) [facility] Start: 1950 Sex Assigned At Not on file [facility] Start: 11-22-2021 End: 04-18-2022 Exposure to SARS-CoV-2 (event) Not sure [facility] Start: 12-05-2021 History SDOH Social Connections Phone 5 [facility] Start: 12-05-2021 History SDOH Social Connections Get Together 3 [facility] Start: 12-05-2021 History SDOH Social Connections Membership 1 [facility] Start: 12-05-2021 History SDOH Social Connections Meetings 2 [facility] Start: 12-05-2021 History SDOH Social Connections Living 4 [facility] Start: 03-25-2022 End: 09-05-2023 Tobacco smoking status TNIS Unknown if ever smoked [facility] Start: 07-12-2011 End: 09-03-2024 Tobacco use and exposure Smokeless tobacco non-user [facility] Start: 12-05-2021 End: 04-20-2023 History of Social function [facility] Start: 12-05-2021 End: 04-20-2023 Social connection and isolation panel [facility] Do you belong to any clubs or organizations such as bahai groups, unions, fraternal or athletic groups, or school groups? Yes [facility] Are you now , , , , never or living with a partner? [facility] Start: 06-24-2012 How often to you have a drink containing alcohol? Patient refused [facility] How hard is it for y ou to pay for the very basics like food, housing, medical care, and heating Somewhat hard [facility] (I/We) worried whemony er (my/our) food would run out before (I/we) got money to buy more. Never true [facility] In the past 12 month s, was there a time when you were not able to pay the mortgage or rent on time? No [facility] Start: 12-05-2021 Gender identity Identifies as male gender (finding) [facility] Start: 12-05-2021 Sexual orientation Heterosexual (finding) [facility] Start: 09-03-2024 End: 03-18-2025 Tobacco smoking status NHIS Ex-smoker [facility] History of tobacco use Current smoker [facility] History of tobacco use Cigarette Smoker C [facility] Start: 09-03-2024 Alcohol Comment 6 pack of beer a week on average [facility] Start: 10-04-2024 End: 11-11-2024 Sex Male (finding) [facility] Medical Equipment Procedure Code Equipment Code [...] Assessment Result Facility 01-25-2025 Functional status Ambulates [facility] Work Phone: 12-30-2024 Functional status Chair [facility] Work Phone: 09-10-2022 Functional status Ambulates [facility] Work Phone: 01-27-2022 Functional Status Ambulating in [place], Ambulating in room [facility] 01-27-2022 Functional Status [facility] 01-27-2022 Functional Status [facility] 01-27-2022 Functional Status Room check performed [facility] 12-01-2021 Functional Status [facility] 12-01-2021 Functional Status [facility] 12-01-2021 Functional Status [facility] 12-01-2021 Functional Status [facility] 12-01-2021 Functional Status [facility] 12-01-2021 Functional Status [facility] 11-30-2021 Functional Status [facility] 11-30-2021 Functional Status [facility] 11-30-2021 Functional Status [facility] 11-30-2021 Functional Status [facility] 11-30-2021 Functional Status [facility] 11-30-2021 Functional Status [facility] 11-29-2021 Functional Status [facility] 11-29-2021 Functional Status [facility] 11-29-2021 Functional Status [facility] 12-08-2014 Are you deaf, or do you have serious difficulty hearing No 12/08/2014 6:06 PM Ganesh Cochran MA No [facility] 12-08-2014 Are you blind, or do you have serious difficulty seeing, even when wearing glasses No 12/08/2014 6:06 PM Ganesh Cochran MA No [facility] 12-08-2014 Do you have serious difficulty walking or climbing stairs No 12/08/2014 6:06 PM Ganesh Cochran MA No [facility] 12-08-2014 Do you have difficul ty dressing or bathing No 12/08/2014 6:06 PM EDT Ganesh White MA No [facility] 12-08-2014 Because of a physica l, mental, or emotional condition, do you have difficulty doing errands alone such as visiting a physician's office or shopping No 12/08/2014 6:06 PM EDT Ganesh White MA No [facility] Mental Status Date Assessment Result Facility 03-20-2025 Cognitive function Level Of Cons ciousness Sedated [facility] Work Phone: 03-20-2025 Cognitive function Patient Orihilaria plummer Person;Place;Time [facility] Work Phone: 01-25-2025 Cognitive function Voice/Name [facility] Work Phone: 12-29-2024 Cognitive function Voice/Name [facility] Work Phone: 12-28-2024 Cognitive function Sedated [facility] Work Phone: 09-10-2022 Cognitive function Voice/Name [facility] Work Phone: 01-27-2022 Mental Status Orientation Oriented x 4 [facility] 01-27-2022 Mental Status [facility] 01-27-2022 Mental Status [facility] 12-01-2021 Mental Status [facility] 12-01-2021 Mental Status [facility] 11-30-2021 Mental Status [facility] 11-29-2021 Mental Status [facility] 11-29-2021 Mental Status [facility] 12-08-2014 Because of a physica l, mental, or emotional condition, do you have serious difficulty concentrating, remembering, or making decisions No 12/08/2014 6:06 PM EDT Ganesh White MA No [facility] Clinical Notes 08-01-2018 to 06-02-2025 Note Date & Type Note Facility 06-02-2025 Note HNO ID: [id number] Author: ?, ?, ? Service: ? Author Type: Licensed Nurse Type: Progress Notes Filed: 06/02/2025 14:12 Note Text: Patient presents for COVID vaccine. Denies any problems at this time. Tolerated injection well. Caroline Lentz LPN [facility] 05-12-2025 Note [facility] 05-09-2025 Note HNO ID: [id number] Author: LUPILLO GOEL LPN Service: ? Author Type: Licensed Nurse Type: Progress Notes Filed: 05/09/2025 07:27 Note Text: Scan on 05/08/2025 2:42 PM by Provider, ELIZABETH Smart: Consultation - Cardiology [facility] 05-08-2025 Progress note [facility] 05-08-2025 Progress note Note Date/Time May 08, 2025 2:02pm [facility] [place] [id number] [place] [address] OFFICE VISIT Date of Service: 05/08/25 MR#: [id number] Acct: [id number] Name: NAZARIO HUTTON Rep #: [id number] : 1950 Provider: FAUSTO Thrasher Age/Sex: 74/M Location: [facility] Status: Signed HPI HPI History of Present Illness Details: This is a 74-year-old man who presents to the office today for a cardiovascular follow-up visit. He has a history of coronary artery disease, anemia, hypertension, cirrhosis, NSTEMI. In August 2022 patient underwent a cardiac catheterization after being noted to have a non-ST elevation myocardial infarction and demonstrated left main coronary without significant disease, leftanterior descending artery previously stented with mild in-stent stenosis and diffuse distal disease of approximately 80%, left circumflex artery which is totally occluded in the proximal segment and filling via left to left and right to left collaterals, the right coronary artery which was previously stented withdiffuse disease moderate in-stent stenosis and right to left collaterals fillingthe distal LAD and circumflex artery. There was mild left ventricular dysfunction and hypokinesis of the anteroapical wall. Medical therapy was recommended. He has also had 5 episode of unexplained angioedema treated with IV Benadryl. The most recent episode occurred 12/30/2024 which required intubation and admission for three days. He was recently in the hospital following that 01/25/2025 due to a GI bleed and was found to be be anemic with a hemoglobin of 9.9. From a cardiac standpoint, the patient is doing well. He denies any palpitations, pressure or heaviness. He does acknowledge continued right sided chest pain-tightness. He states resting does help. He does acknowledge SOB with exertion-resting helps. He denies Orthopnea, and PND. He does not have bleedingissues; no blood in urine, stool, or nosebleeds. He denies any decrease in energy level, myalgias, or claudication. He does not have edema, or sudden weight gain. He does have occasional lightheadedness. He denies dizziness, syncopal or near syncopal episodes, and headaches. Intake Vital Signs 11/05/24 07:36 03/20/25 06:32 05/08/25 12:43 Height 5 ft 10 in 5 ft 10 in 5 ft 10 in Weight: 218 lb BMI 31.2 BP 128/79 H Blood Pressure Location Lt brachial Position Sitting Respiration 18 Pulse 92 Pulse Source Monitor Pulse Oximetry (%) 93 Intake Visit Reasons: 6 M FU Marketing Technology Specialist Required: No Is patient in pain?: No Allergies losartan Allergy (Severe, Verified 05/08/25 13:23) Angioedema hydrochlorothiazide Allergy (Verified 05/08/25 13:23) Hives Medications ?Medication ?Instructions ?Recorded ?Confirmed ?Type allopurinol 100 mg tablet 100 mg PO DAILY GOUT 2 05/08/25 History atorvastatin 80 mg tablet 80 mg PO QHS CHOLESTEOL 09/1405/08/25 History ezetimibe 10 mg tablet 10 mg PO QHS CHOLESTEROL 05/1505/08/25 History nitroglycerin 0.4 mg sublingual 0.4 mg sublingual UD P RN Chest Pain 09/02/22 05/08/25 History tablet cholecalciferol (vitamin D3) 125 125 mcg PO DAILY supp lement 09/01/23 05/08/25 History mcg (5,000 unit) capsule omega 3-dha 100 mg-epa 400 mg-fish 1 cap PO DAILY supp lement 09/01/23 05/08/25 History oil 1,000 mg capsule vitamin B complex (B 1 tab PO DAILY feet 09/01/23 05/08/25 History Complex-Vitamin B12 tablet) isosorbide mononitrate 30 mg 30 mg PO QAM bp 04/15/24 05/08/25 History tablet,extended release 24 hr amlodipine 5 mg tablet 5 mg PO QDAY bp 09/19/24 History carvedilol 12.5 mg tablet 12.5 mg PO BID bp 09/19/24 1 History gabapentin 300 mg capsule 600 mg PO BID neuropathy 05/08/25 History doxepin 25 mg capsule 25 mg PO QHS mood 11/05/24 1 History aspirin 81 mg capsule 81 mg PO DAILY heart 5 05/08/25 History epinephrine 0.3 mg/0.3 mL 0.3 mg (0.3 mL) IM X1 PRN 05/08/25 Rx injection, auto-injector (EpiPen) anaphylaxis/angioede ma #1 ea peg 3350-sod sulf,myoch-zot-cap See Rx Instructions PO .COMPLEX #2 01/29/25 05/08/25 Rx 178.7-7.3-0.5-1.12-0.9 gram oral mL soln (Suflave) ferrous sulfate 325 mg (65 mg 325 mg PO QODAY #30 tabs 02/26/25 05/08/25 Rx iron) tablet pantoprazole 40 mg tablet,delayed 40 mg PO DAILY 1 mon #30 tabs 02/26/25 05/08/25 Rx release (Protonix) ascorbic acid (vitamin C) 1,000 mg 500 mg PO QDAY 02/2205/08/25 History tablet diphenhydramine HCl 25 mg capsule 25 mg PO Q8H PRN all ergic reaction 03/18/25 05/08/25 History (Aler-Cap) fexofenadine 180 mg tablet 180 mg PO DAILY 03/18/25 History (Marii Allergy) multivitamin (Daily Multi-Vitamin 1 tab PO DAILY 03/1805/08/25 History tablet) furosemide 20 mg tablet 20 mg PO QDAY 1 month #30 ta bs 05/06/25 05/08/25 Rx spironolactone 25 mg tablet 25 mg PO DAILY 1 month #30 tabs 05/06/25 05/08/25 Rx Ejection fraction %: 50 Have you fallen in the past year?: No PFSH Medical History Chest pain Wears glasses Alcohol use Kidney stones Fatty liver Excessive bleeding High cholesterol History of GI bleed History of diverticulitis Gastric reflux History of edema History of echocardiogram History of stress test Cardiology follow-up encounter High serum parathyroid hormone (PTH) Heart murmur Elevated alkaline phosphatase level Elevated PSA Diverticulosis AVM (arteriovenous malformation) of colon Vitamin D deficiency Gout Alcohol abuse Essential hypertension Anxiety Depression Myocardial infarct Chest pain Acute blood loss anemia Bloody diarrhea Coronary artery disease Atherosclerotic heart disease of teller coronary artery without angina pectoris ST elevation PA (STEMI) (~11/29/21) Hyperlipidemia Hypertension Surgical History History of cardiac catheterization H/O colonoscopy S/P cataract extraction Presence of coronary angioplasty implant and graft (~11/29/21) Family History Mother COPD (chronic obstructive pulmonary disease) Lung cancer Father Heart disease Hypertension Myocardial infarction age 53 following PA. Social History household members: none Smoking Status: Former smoker how long ago did patient quit smoking: Smoked from age 18, 1 ppd x 4 years and then quit. alcohol intake: current alcohol intake frequency: a few times a week Alcohol type: beer substance use type: does not use ROS Const Const: Negative for fatigue, weakness, headache(s) or frequent falls Eyes Eyes: Negative for blurry vision ENT ENT: Negative for headache(s), dizziness or Nosebleed/epistaxis Cardio Chest Pain: Yes Frequency: monthly Character: sharp and tightness Onset: at rest and exercise Location: right chest Duration: minutes Relieving: rest Palpitations: No Edema: None Muscle aches with walking: None Resp Respiratory: Positive for SOB with activity; Negative for SOB at rest or SOB orthopnea\SOB lying down GI GI: Negative nausea, vomiting, heartburn, bright, red blood in stools or black,tarry stools : Negative for hematuria Neuro Neuro: Positive for lightheadedness; Negative for dizziness, near syncope, syncope, frequent falls, headache(s), weakness or blurry vision Endo Endo: Negative for fatigue Cardiology Exam Const Appearance: cooperative, healthy appearing, no acute distress, well developed and well groomed Nutritional Appearance: average body habitus, well nourished and obese Orientation: alert, awake and oriented x3 Head Head: normal to inspection, normocephalic and atraumatic Ears: hearing grossly normal bilaterally and external ears normal Nose: external nose normal and nares normal Face and Sinus: face symmetric Eyes General: appearance normal, both eyes and all related structures Eyelids: eyelids normal Conjunctivae: conjunctivae normal Pupils: PERRL EOM: EOM intact bilaterally Neck Neck: normal visual inspection, trachea midline and no JVD JVD: +5 Carotids: normal carotid upstroke and bounding pulses Chest Chest inspection: normal inspection of the chest, symmetric chest movement and normal respiratory effort Auscultation: Bilateral: Clear to Auscultation Cardio Palpation: normal PMI Rate: regular rate Rhythm: regular rhythm Heart sounds: S1 normal, S2 normal, murmur and normal, physiologic split S2; Negative rub or gallop Murmur: Grade 1/6 and mid systolic GI GI: normal to inspection, soft and obese Neuro General: patient alert, patient awake, patient oriented x3, gait normal, moves all extremities and no focal sensory deficit Skin Skin: no rashes or lesions noted Extremities Pulses: Normal: Right Posterior Tibial Pulse, Left Posterior Tibial Pulse, RightRadial Pulse and Left Radial Pulse Lower Extremity Edema: Trace: Bilateral Musculoskel Musculoskeletal: No joint tenderness Psych Psychological: normal affect Supplemental Info Supplemental Information Stress Test 11/2023: Impression: 1. There is no evidence of significant ischemia. Prior apical myocardial infarction. 2. Estimated ejection fraction is 48%. Echocardiogram 09/28/2023: Interpretation Summary Normal LV size. Left ventricular systolic function is lower limits of normal. There is mild global hypokinesis of the left ventricle. The estimated ejection fraction is 50 %. The left atrium is moderately enlarged. Stage 1 diastolic dysfunction. Pulmonary artery systolic pressure is 30 mmHg. Contrast injection was performed. Carotid Duplex 09/28/2023: Interpretation Summary Mild (<50%) stenosis right extracranial internal carotid. Mild (<50%) stenosis left extracranial internal carotid. Patent and antegrade vertebrals bilaterally. CARDIAC CATHETERIZATION 09/06/22: CORONARY ANGIOGRAPHY DOMINANCE:? Right Dominant LEFT HEART ASSESSMENT Left Ventricular Ejection Fraction: by LV Gram 50 % Anterior Hypokinesis - Mild Depressed Left Ventricular systolic function LEFT MAIN: Mild calcification, No significant disease noted LEFT ANTERIOR DESCENDING ARTERY: The left anterior descending artery was previously stented and has mild in-stent stenosis in the proximal and mid regions.? Distally the vessel appears to be subtotally occluded towards the apex of the ventricle. CIRCUMFLEX ARTERY: The circumflex artery gives off a first obtuse marginal branch which is diffusely diseased and then totally occluded. RIGHT CORONARY ARTERY: The right coronary artery is a large dominant vessel previously stented and diffusely diseased in the proximal segment with in-stent stenosis of up to 40 to 50%.? Distally there is diffuse disease involving the posterior lateral and posterior descending arteries up to 50%.? Distal right to left collaterals filling the distal LAD as well as the distal circumflex artery are noted. COLLATERAL FLOW: Collateral flow from Right to Left CONCLUSIONS Diffuse three-vessel disease involving the distal left anterior descending artery, and a totally occluded left circumflex artery, and diffuse disease of the right coronary artery. RECOMMENDATIONS Medical therapy will be recommended. ECHOCARDIOGRAM 09/03/22: Interpretation Summary Normal LV size. The estimated ejection fraction is 50 %. Mild segmental systolic dysfunction (see wall motion). Mild (1+) eccentric mitral valve insufficiency. Mild (1+) tricuspid valve insufficiency. ? Labs: HDL Cholesterol, (40-) 37 mg/dL L Cholesterol, (<=200) 120 mg/dL Triglycerides, (-199) 106 mg/dL Diagnostics: Electrocardiogram Echocardiogram Stress Test Stress Test Nuclear Medicine Cardiac Catheterization Chest X-Ray Abdomen/Pelvis CT Carotid Duplex Venous Doppler Study Past Visits: Cardiology Visit Today Assessment and Plan Assessment and Plan (1) Atherosclerotic heart disease of teller coronary artery without angina pectoris: Status: Acute Plan: Patient has a history of coronary artery disease with stent placement. His mostrecent cardiac catheterization from 09/03/2022 demonstrated as noted above, diffuse three-vessel disease involving the left anterior descending artery, totally occluded circumflex artery and diffuse disease of the right coronary artery. Medical therapy was recommended. He does acknowledge continued right sided chest pain with exertion. Would like to obtain a treadmill nuclear stress test to further assess this. Depending on results, further recommendations will be made. He will continue carvedilol 12.5 mg twice daily, atorvastatin 80 mg daily, and Zetia 10 mg daily. He will continue with aggressive risk factor and lifestyle modifications, as well as monitoring for any concerning symptoms. We will keep close follow-up with patient. (2) Essential hypertension: Status: Acute Plan: Patient has a history of hypertension. His blood pressure is well-controlled atthis time-128/79. He will continue with his current medical therapy, along withmonitoring his blood pressures at home. He will notify our office of any persistently elevated or low blood pressure readings. (3) Hyperlipidemia: Status: Acute Plan: Patient has a history of hyperlipidemia. His PCP monitors this. His most recent lipid panel from 01/24/2025: Cholesterol 120, HDL 37, LDL 62, [id number]. He will continue Zetia 10 mg daily, along with aggressive risk factor and lifestyle modifications. (4) Chest pain: Status: Acute Plan: Patient continues to acknowledge right sided chest pain with exertion. Will obtain a treadmill nuclear stress test to further assess this. Depending on results, further recommendations will be made. (5) SOB (shortness of breath): Status: Acute Plan: Patient acknowledges shortness of breath. His most recent BTNP was elevated. He was strongly encouraged to continue Lasix, which he was just prescribed and spironolactone 25 mg daily. Will obtain an echocardiogram to assess his left ventricular systolic function, and valves. Depending on results, further recommendations will be made. Orders: Orders Nuclear Stress Test - Treadmil Today R06.02 - Shortness of breath, R07.9 - Chest pain, unspecified Echo Complete Today R06.02 - Shortness of breath Medications: Resumed amlodipine 5 mg PO QDAY Plan Details Additional Comments: Patient will follow up in 3 months, or sooner if needed. Thank you for allowing me to participate in the care of your patient. Please don't hesitate to call if any issues arise. This note was generated using a voice recognition system and there may be incorrect words, spelling, or punctuation that were not noted when reviewing theoffice note prior to saving. Portions of this documentation were copied and pasted from previous office visitnotes to provide a cohesive continuity of the history. The note has been reviewed, edited, and updated, as necessary. Follow Up: 3 Months (D[employer]INE [employer]TER/PA) Coding Level of Care Code Off vis,est,level 4 Diagnoses Atherosclerotic heart disease of teller coronary artery without angina pectoris I25.10 Essential hypertension I10 Hyperlipidemia E78.5 Chest pain R07.9 SOB (shortness of breath) R06.02 Coding Level of Care Code Off vis,est,level 4 Diagnoses Atherosclerotic heart disease of teller coronary artery without angina pectoris I25.10 Essential hypertension I10 Hyperlipidemia E78.5 Chest pain R07.9 SOB (shortness of breath) R06.02 Clinical Quality Measures Falls Risk Screening/Assistive Devices Have you fallen in the past year?: No Cardiac Ejection fraction %: 50 05/08/25 1422 <Electronically signed by Estefany LAMBERT> Date _ Estefany Thrasher NP, NP-Lorie Cosigner Signature: Date (if applicable) CC: Dr. Valeriano Choe MD ~ [facility] [employer] Work Phone: [phone]) 781-875110-14-2025 [facility]10-08-2025 [facility]10-02-2025 [facility] 03-20-2025 Procedure note [facility] Medical Records Department [address] [place] [address] Colonoscopy Report MR#: [id number] Acct: [id number] Name: NAZARIO HUTTON Rep #:[id number] : 1950 74 From: Ahmet Chacon DO PCP: Dr. Valeriano Choe MD Status:[facility] Patient Name: Nazario Hutton Procedure Date: 03/20/2025 7:02 AM Date of : 1950 Age: 74 Procedure: Colonoscopy Indications: Iron deficiency anemia Providers: Ahmet Chacon DO Referring MD: Valeriano Choe MD Medicines: Monitored Anesthesia Care Patient Profile: This is a 74 year old male. Refer to note in patient chart for documentation of history and physical. Last Colonoscopy: 1 year ago. Complications: No immediate complications. Procedure: Pre-Anesthesia Assessment: - Prior to the procedure, a History and Physical was performed, and patient medications and allergies were reviewed. The patient is competent. The risks and benefits of the procedure and the sedation options and risks were discussed with the patient. All questions were answered and informed consent was obtained. Patient identification and proposed procedure were verified by the physician in the pre-procedure area. Mental Status Examination: alert and oriented. Airway Examination: normal oropharyngeal airway and neck mobility. Respiratory Examination: clear to auscultation. CV Examination: normal. Prophylactic Antibiotics: The patient does not require prophylactic antibiotics. Prior Anticoagulants: The patient has taken no anticoagulant or antiplatelet agents except for NSAID medication. ASA Grade Assessment: II - A patient with mild systemic disease. After reviewing the risks and benefits, the patient was deemed in satisfactory condition to undergo the procedure. The anesthesia plan was to use monitored anesthesia care (MAC). Immediately prior to administration of medications, the patient was re-assessed for adequacy to receive sedatives. The heart rate, respiratory rate, oxygen saturations, blood pressure, adequacy of pulmonary ventilation, and response to care were monitored throughout the procedure. The physical status of the patient was re-assessed after the procedure. After I obtained informed consent, the scope was passed under direct vision. Throughout the procedure, the patient's blood pressure, pulse, and oxygen saturations were monitored continuously. The Colonoscope was introduced through the anus and advanced to the cecum, identified by appendiceal orifice and ileocecal valve. The colonoscopy was performed without difficulty. The patient tolerated the procedure well. The quality of the bowel preparation was adequate. The ileocecal valve, appendiceal orifice, and rectum were photographed. Scope In: 7:15:10 AM Scope Withdrawal Time 0 hours 11 minutes 55 seconds Scope Out: 7:31:22 AM Total Procedure Duration Time 0 hours 16 minutes 12 seconds Findings: The perianal and digital rectal examinations were normal. Multiple small and large-mouthed diverticula were found in the entire colon. Three sessile polyps were found in the sigmoid colon and transverse colon. The polyps were 7 mm in size. These polyps were removed with a cold biopsy forceps. Resection and retrieval were complete. Verification of patient identification for the specimen was done. Estimated blood loss was minimal. A single medium-sized localized angiodysplastic lesion without bleeding was found at the splenic flexure. Coagulation for bleeding prevention using heater probe was successful. Estimated blood loss was minimal. Impression: - Diverticulosis in the entire examined colon. - Three 7 mm polyps in the sigmoid colon and in the transverse colon, removed with a cold biopsy forceps. Resected and retrieved. - A single non-bleeding colonic angiodysplastic lesion. Treated with a heater probe. Recommendation: - Discharge patient to home. - Resume previous diet. - Continue present medications. - Await pathology results. - Repeat colonoscopy in 3 years for surveillance. Procedure Code(s): --- Professional --- 79523, 59, Colonoscopy, flexible; with control of bleeding, any method 43349, Colonoscopy, flexible; with biopsy, single or multiple CPT copyright 2021 [employer]. All rights reserved. The codes documented in this report are preliminary and upon insurance coder review may be revised to meet current compliance requirements. Ahmet Chacon DO 03/20/2025 7:43:32 AM This report has been signed electronically. Number of Addenda: 0 Note Initiated On: 03/20/2025 7:02 AM 03/20/2543 Date _ Ahmet Chacon DO Cosigner Signature: Date (if indicated) CC: Dr. Valeriano Choe MD; Ahmet Chacon DO ~ Date Dictated: 03/20/25701 Date Transcribed: Dependency Case Manager: RF Signed [facility]08-28-2025 Procedure note [facility] Medical Records Department [address] [facility] [place] [address] Provation Physician Letter MR#: [id number] Acct: [id number] Name: NAZARIO HUTTON Rep #:[id number] : 1950 74 From: Ahmet Chacon DO PCP: Dr. Valeriano Choe MD Status:[facility] 03/20/2025 Valeriano Choe MD Re : Colonoscopy procedure for Nazario Hutton Dear Dr. Choe This procedure was performed on February. My impressions and recommendations are as follows: Impressions : - Diverticulosis in the entire examined colon. - Three 7 mm polyps in the sigmoid colon and in the transverse colon, removed with a cold biopsy forceps. Resected and retrieved. - A single non-bleeding colonic angiodysplastic lesion. Treated with a heater probe. Recommendations : - Discharge patient to home. - Resume previous diet. - Continue present medications. - Await pathology results. - Repeat colonoscopy in 3 years for surveillance. My findings are described in the full procedure note, which is enclosed. If I can be of further assistance, please feel free to contact me at . Sincerely, Ahmet Chacon DO 03/20/2025 7:43:32 AM This report has been signed electronically. 03/20/25742 Date _ Ahmet Chacon DO Cosigner Signature: Date (if indicated) CC: Dr. Valeriano Choe MD; Ahmet Chacon DO ~ Date Dictated: 03/20/25701 Date Transcribed: Dependency Case Manager: RF Signed [facility]08-28-2025 Consult note [facility] Medical Records Department [address] [place] [address] Anesthesia Postop Eval I 03/20/25740 MR#: [id number] Acct: [id number] Name: NAZARIO HUTTON Rep #:[id number] : 1950 74 From: Justin Moore PCP: Dr. Valeriano Choe MD Status:[facility] Race: C Location: [place] [address] Anesthesia: Postop Eval I Current Vital Signs Temperature: 97.7 F Pulse Rate: 68 Blood Pressure: 96/70 Respiratory Rate: 16 Pulse Ox: 94 Oxygen Delivery Method: Room Air Assessment Airway patent: Yes Spontaneous unlabored respirations: Yes Mental status: Asleep nausea: No Vomiting: No Anesthesia Complication: No Fluid Hydration Crystalloid volume administer (ml): 500 Total IV fluid infused: 500 Progress Note Anesthesia document: Postop Eval 1 completed: Yes 03/20/25 0742 > Date _ Justin Moore Cosigner Signature: Date CC: ~ Signed [facility]08-28-2025 Consult note [facility] Medical Records Department [address] [place] [address] Pre-Anesthesia Evaluation 03/20/25 0658 MR#: [id number] Acct: [id number] Name: NAZARIO HUTTON Rep #:[id number] : 1950 74 From: Louis Castillo MD PCP: Dr. Valeriano Choe MD Status:[facility] Race: C Location: [place] [address] ASA Classification* ASA Classification ASA Classification: 3 Assessment & Plan Anesthesia* Anesthesia Assessment Anesthesia Assessment: Discussed sedation and/or anesthesia options, risks, benefits, and alternatives with patient/parents/legal guardian/POA. Questions invited. The patient/parents/legal guardian/POA seems to understand and agrees to proceedwith anesthesia plan. Reviewed the physical assessment, medical history, allergy history and patient home medications list prior to surgery/procedure/anesthetic and documented any changes. Performed airway and anesthesia risk assessments. Anesthesia Type Anesthesia Type: MAC History Source History Obtained from:: Patient and Chart Anesthesia Focused Assessment* Temperature: 97.5 F Pulse Rate: 71 Blood Pressure: 114/72 Respiratory Rate: 16 Pulse Ox: 94 Oxygen Delivery Method: Room Air Airway Assessment Mouth opens: 2 cm Mallampati Score: IV Teeth Condition: Missing (Patient is missing several teeth. Rest are tight.) Neck Range of motion (ROM): Limited ROM (Slight Decrease) Labs Anesthesia Preop lab: CBC WBC 6.4 K/mm3 (4.4-11.0) 03/10/25 11:10 03/10/25 RBC 3.51 M/mm3 (4.6-6.2) L 03/10/25 11:10 03/10/25 Hgb 12.5 g/dL (13.0-16.5) L 03/10/25 11:10 5 Hct 37.1 % (40-54) L 03/10/25 11:10 03/10/25 Plt Count 180 K/mm3 (150-450) 03/10/25 11:10 03/10/25 CHEMISTRY Potassium 4.4 mmol/L (3.3-5.1) 03/10/25 11:10 03/10/25 Sodium 139 mmol/L (133-145) 03/10/25 11:10 03/10/25 Magnesium 2.1 mg/dL (1.5-2.2) 01/23/25 20:21 01/23/25 Phosphorus 2.8 mg/dL (2.7-4.5) 01/25/25 05:39 01/25/25 BUN 9 mg/dL (4-19) 03/10/25 11:10 03/10/25 Creatinine 0.74 mg/dL (0.70-1.20) 03/10/25 11:10 03/10/25 Glucose 115 mg/dL (70-99) H 03/10/25 11:10 03/10/25 TSH 1.920 uIU/mL (0.300-4.200) 01/24/25 04:04 11/15 COAG PT 14.3 SECONDS (11.7-14.9) 03/10/25 11:10 Pre-Assessment Diagnosis/Proposed Procedure Planned Operative Procedure(s): COLONOSCOPY Anesthesia History Anesthesia History - compliance professional: Anesthesia History - compliance professional Hx Hospitalization Yes 03/18/25 11:59 Any Problems With Anesthesia No 03/18/25 11:59 Cholinesterase deficiency No 03/18/25 11:59 You/Your Family Experience No 03/18/25 11:59 fever (hyperthermia) with Relationship Recent Exposure to Contagious No 03/20/25 06:30 Disease Does patient have nerve No 03/18/25 11:59 stimulator Patient instructed to have device shut off --Does patient have Pacemaker No 03/20/25 06:32 or ICD? When Was Last Pacemaker Check QUESTION #4 FULL TEXT: You/Your Family Experience fever (hyperthermia) with Anesthesia Last Oral Intake Last Oral intake: Last Oral Intake NPO since 01:00 03/20/25 06:32 Meds taken in AM with sips of Yes 03/20/25 06:32 water? Meds patient instructed to take am of surgery Any additional information?: Yes NPO since: 01:00 (Patient finished prep at 1 AM.) Meds taken in AMwith sips of water?: Yes PONV PONV - compliance professional: PONV - compliance professional Female No 03/18/25 11:59 HX of Motion Sickness No 03/18/25 11:59 HX of N/V After Surgery No 03/18/25 11:59 Non-Smoker Yes 03/18/25 11:59 Duration of Surgery greater No 03/18/25 11:59 than 60 minutes Number of Risk Factors 1 03/18/25 11:59 PONV Score Low Risk 03/18/25 11:59 Height & Weight Height & Weight: Anesthesia: Height & Weight Height 5 ft 10 in 03/20/25 06:32 Weight: 97.432 kg 03/20/25 06:32 Body Mass Index (BMI) 30.8 03/20/25 06:32 Respiratory Assessment Respiratory Assessment - compliance professional: Respiratory Tract Infection Hx - compliance professional Hx Respiratory Tract Infection No 03/18/25 11:59 STOP Sleep Apnea STOP Sleep Apnea - compliance professional: STOP Sleep Apnea - compliance professional Hx Hypertension Yes: CONTROLLED ON MED 03/18/25 11:59 Hx Sleep Apnea No 03/18/25 11:59 CPAP BIPAP Do you snore loudly (louder No 03/18/25 11:59 than talking or can be heard Do you often feel tired/ No 03/18/25 11:59 fatigued/ sleepy during daytime? Has anyone observed you stop No 03/18/25 11:59 breathing during sleep? STOP Results Negative 03/18/25 11:59 QUESTION #5 FULL TEXT : Do you snore loudly (louder than talking or can be heard through closeddoors)? Tobacco Use History Tobacco Use History - compliance professional: Tobacco Use History - compliance professional Tobacco Use Smoking Status Former smoker 03/18/25 11:59 Hx Tobacco Use No 03/18/25 11:59 Years Smoking Packs Smoked per Day Smoking Cessation Date was No - quit smoking greater 03/18/25 11:59 within the last 15 years than 15 years ago Hx Smoking Cessation Date 07/24/71 03/18/25 11:59 Hx Smoking Cessation No 03/18/25 11:59 Counseling Hematologic Medial History Hematologic Hx - compliance professional: Hematologic Medical Hx - station gateman Hx of Blood Transfusion Yes 03/18/25 11:59 Hx of Transfusion in last 3 No 03/18/25 11:59 Months Date of Last Transfusion (if within last 3 months) Ever experience any problems No 03/18/25 11:59 with transfusion(s)? Specify any problems Hx of Preganancy in last 3 N/A 03/18/25 11:59 Months Nurse Filling Out Transfusion VCHRISTIN 03/18/25 11:59 & Questions: Date: 03/18/25 03/18/25 11:59 Time: 12:00 03/18/25 11:59 Patient unable to answer at this time (ie. confused, unrespo /Reproduction History /Reproductive History - compliance professional: /Reproductive Hx- compliance professional Hx Now No 03/18/25 11:59 Gestational Age (in weeks): EDC: Hx Hx Para Hx Section SAB No 03/18/25 11:59 Active Medications Active Medications: Current Medications Generic Name Dose Route Start Last Admin Trade Name Freq PRN Reason Stop Dose Admin Lactated Ringer's 1,000 mls @ 15 mls/hr 03/20/25 06:15 03/20/25 06:40 IV 15 mls/hr .Q48H YASMIN Administration PFSH Medical History Wears glasses Alcohol use Kidney stones Fatty liver Excessive bleeding High cholesterol History of GI bleed History of diverticulitis Gastric reflux History of edema History of echocardiogram History of stress test Cardiology follow-up encounter High serum parathyroid hormone (PTH) Heart murmur Elevated alkaline phosphatase level Elevated PSA Diverticulosis AVM (arteriovenous malformation) of colon Vitamin D deficiency Gout Alcohol abuse Essential hypertension Chest pain Anxiety Depression Myocardial infarct Chest pain Acute blood loss anemia Bloody diarrhea Coronary artery disease Atherosclerotic heart disease of teller coronary artery without angina pectoris ST elevation PA (STEMI) (~11/29/21) Hyperlipidemia Hypertension Home Medications ?Medication ?Instructions ?Recorded ?Last Taken ?Type allopurinol 100 mg tablet 100 mg PO DAILY GOUT 2 01/23/25 08:20 History atorvastatin 80 mg tablet 80 mg PO QHS CHOLESTEOL 09/1403/19/25 History ezetimibe 10 mg tablet 10 mg PO QHS CHOLESTEROL 05/1503/19/25 History nitroglycerin 0.4 mg sublingual 0.4 mg sublingual UD P RN Chest Pain 09/02/22 Unknown History tablet cholecalciferol (vitamin D3) 125 125 mcg PO DAILY supp lement 09/01/23 03/19/25 History mcg (5,000 unit) capsule omega 3-dha 100 mg-epa 400 mg-fish 1 cap PO DAILY supp lement 09/01/23 03/19/25 History oil 1,000 mg capsule vitamin B complex (B 1 tab PO DAILY feet 09/01/23 03/19/25 History Complex-Vitamin B12 tablet) isosorbide mononitrate 30 mg 30 mg PO QAM bp 04/15/24 03/20/25 04:00 History tablet,extended release 24 hr amlodipine 5 mg tablet 5 mg PO QDAY bp 09/19/2410/15 08:20 History Held on 02/26/25. Instructions: Order Changed carvedilol 12.5 mg tablet 12.5 mg PO BID bp 09/19/24 0 03/20/25 04:00 History gabapentin 300 mg capsule 600 mg PO BID neuropathy 03/20/25 History doxepin 25 mg capsule 25 mg PO QHS mood 11/05/24 0 03/19/25 History aspirin 81 mg capsule 81 mg PO DAILY heart 5 01/23/25 08:21 History epinephrine 0.3 mg/0.3 mL 0.3 mg (0.3 mL) IM X1 PRN Unknown Rx injection, auto-injector (EpiPen) anaphylaxis/angioede ma #1 ea peg 3350-sod sulf,[id number] See Rx Instructions PO .COMPLEX #2 01/29/25 03/20/25 Rx 178.7-7.3-0.5-1.12-0.9 gram oral mL soln (Suflave) ferrous sulfate 325 mg (65 mg 325 mg PO QODAY #30 tabs 02/26/25 03/16/25 Rx iron) tablet pantoprazole 40 mg tablet,delayed 40 mg PO DAILY Mon #30 tabs 02/26/25 03/19/25 Rx release (Protonix) ascorbic acid (vitamin C) 1,000 mg 500 mg PO QDAY 02/2203/19/25 History tablet diphenhydramine HCl 25 mg capsule 25 mg PO Q8H PRN all ergic reaction 03/18/25 Unknown History (Aler-Cap) fexofenadine 180 mg tablet 180 mg PO DAILY 03/18/25 History (Marii Allergy) multivitamin (Daily Multi-Vitamin 1 tab PO DAILY 03/1803/19/25 History tablet) Allergy/AdvReac Type Severity Reaction Status Date / Time losartan Allergy Severe Angioedema Verified 03/20/25 06:27 hydrochlorothiazide Allergy Hives Verified 03/20/25 06:27 Family History Mother COPD (chronic obstructive pulmonary disease) Lung cancer Father Heart disease Hypertension Myocardial infarction age 53 following PA. Surgical History History of cardiac catheterization H/O colonoscopy S/P cataract extraction Presence of coronary angioplasty implant and graft (~11/29/21) Social History household members: none Smoking Status: Former smoker how long ago did patient quit smoking: Smoked from age 18, 1 ppd x 4 years and then quit. alcohol intake: current alcohol intake frequency: a few times a week Alcohol type: beer substance use type: does not use Review of Systems (Anesthesia) ROS Narrative System reviewed and no additional complaints, except as documented. 03/20/25 0705 dale LUNA> Date _ Louis Castillo MD Cosigner Signature: Date CC: ~ Signed [facility]08-28-2025 History and physical note [facility] Medical Records Department [address] [address] History & Physical Exam 03/20/25 0656 MR#: [id number] Acct: [id number] Name: NAZARIO HUTTON Rep #:[id number] : 1950 74 From: Ahmet Friend DO PCP: Dr. Valeriano Choe MD Status:[facility] Location: [place] [address] HPI - General General Date of Admission: 03/20/25 Date of Service: 03/20/25 Chief Complaint: varices screening HPI Narrative NAZARIO HUTTON, is a 74 M who presents with the Chief Complaint: of possible cirrhosis Details: US abd/ elastography 05.14.24- Liver measures 18.7cm, Stiffness measures 18.5 kPa OV 11..24 Previously established with GI for lower GI bleeds. Pt referred by PCP for elevated LFTs and fatty liver. Pt has hx of alcohol abuse following the of his a coulple years ago. States he currently drinks a few beers a day now. Pt denies any abdominal pain, heartburn or swelling. BM are normal oncea day. Patient was drinking more after the of his about 6 packs/day in [id number] but had cut down to few beers per day. Denies leg swelling, abdominal swelling, confusion or fall. CT abd/pel 09.06.24- Peripheral right lobe hepatic lesion consistent with a vascular shunt, stable from the previous exam. No new or worrisome hepatic lesions identified. Cirrhotic morphology of the liver with steatosis and hepatomegaly. OV 09.19.24 Pt here for f/u cirrhosis. Pt reports trouble swallowing, foggy brain, dizziness, and swelling in R foot and tongue occasionally. MELD Na-9 METAVIR- F4 [facility] inpatient 7.3.25- 7.5.23- LGIB with ABLA OV 8.6.25- Pt well since last visit. Denies dizziness, weakness, SOB, abdominal pain. Has not seen any dark or bloody stools. Reports the last two weeks he has had increased swelling in both feet andankles. [facility] Medical History Wears glasses Alcohol use Kidney stones Fatty liver Excessive bleeding High cholesterol History of GI bleed History of diverticulitis Gastric reflux History of edema History of echocardiogram History of stress test Cardiology follow-up encounter High serum parathyroid hormone (PTH) Heart murmur Elevated alkaline phosphatase level Elevated PSA Diverticulosis AVM (arteriovenous malformation) of colon Vitamin D deficiency Gout Alcohol abuse Essential hypertension Chest pain Anxiety Depression Myocardial infarct Chest pain Acute blood loss anemia Bloody diarrhea Coronary artery disease Atherosclerotic heart disease of teller coronary artery without angina pectoris ST elevation PA (STEMI) (~11/29/21) Hyperlipidemia Hypertension Home Medications ?Medication ?Instructions ?Recorded ?Last Taken ?Type allopurinol 100 mg tablet 100 mg PO DAILY GOUT 2 01/23/25 08:20 History atorvastatin 80 mg tablet 80 mg PO QHS CHOLESTEOL 09/1403/19/25 History ezetimibe 10 mg tablet 10 mg PO QHS CHOLESTEROL 05/1503/19/25 History nitroglycerin 0.4 mg sublingual 0.4 mg sublingual UD P RN Chest Pain 09/02/22 Unknown History tablet cholecalciferol (vitamin D3) 125 125 mcg PO DAILY supp lement 09/01/23 03/19/25 History mcg (5,000 unit) capsule omega 3-dha 100 mg-epa 400 mg-fish 1 cap PO DAILY supp lement 09/01/23 03/19/25 History oil 1,000 mg capsule vitamin B complex (B 1 tab PO DAILY feet 09/01/23 03/19/25 History Complex-Vitamin B12 tablet) isosorbide mononitrate 30 mg 30 mg PO QAM bp 04/15/24 03/20/25 04:00 History tablet,extended release 24 hr amlodipine 5 mg tablet 5 mg PO QDAY bp 09/19/2410/15 08:20 History Held on 02/26/25. Instructions: Order Changed carvedilol 12.5 mg tablet 12.5 mg PO BID bp 09/19/24 0 03/20/25 04:00 History gabapentin 300 mg capsule 600 mg PO BID neuropathy 03/19/25 History doxepin 25 mg capsule 25 mg PO QHS mood 11/05/24 0 03/19/25 History aspirin 81 mg capsule 81 mg PO DAILY heart 5 01/23/25 08:21 History epinephrine 0.3 mg/0.3 mL 0.3 mg (0.3 mL) IM X1 PRN Unknown Rx injection, auto-injector (EpiPen) anaphylaxis/angioede ma #1 ea peg 3350-sod sulf,intpd-ygc-jyk See Rx Instructions PO .COMPLEX #2 01/29/25 03/20/25 Rx 178.7-7.3-0.5-1.12-0.9 gram oral mL soln (Suflave) ferrous sulfate 325 mg (65 mg 325 mg PO QODAY #30 tabs 02/26/25 03/16/25 Rx iron) tablet pantoprazole 40 mg tablet,delayed 40 mg PO DAILY 1 mon #30 tabs 02/26/25 03/19/25 Rx release (Protonix) ascorbic acid (vitamin C) 1,000 mg 500 mg PO QDAY 02/2203/19/25 History tablet diphenhydramine HCl 25 mg capsule 25 mg PO Q8H PRN all ergic reaction 03/18/25 Unknown History (Aler-Cap) fexofenadine 180 mg tablet 180 mg PO DAILY 03/18/25 History (Marii Allergy) multivitamin (Daily Multi-Vitamin 1 tab PO DAILY 03/1803/19/25 History tablet) Allergy/AdvReac Type Severity Reaction Status Date / Time losartan Allergy Severe Angioedema Verified 03/20/25 06:27 hydrochlorothiazide Allergy Hives Verified 03/20/25 06:27 Family History Mother COPD (chronic obstructive pulmonary disease) Lung cancer Father Heart disease Hypertension Myocardial infarction age 53 following PA. Surgical History History of cardiac catheterization H/O colonoscopy S/P cataract extraction Presence of [...] does not use ROS Constitutional Constitutional: Denies fatigue, fever(s), poor appetite, weight gain or weight loss Gastrointestinal Gastrointestinal: Denies belching, bloating, change in bowel habits, change in stool character, chewing difficulty, coffee ground emesis, constipation, cramping, diarrhea, dyspepsia, dysphagia, earlysatiety, excessive flatus, fecalincontinence, heartburn, hematemesis, hematochezia, hemorrhoids, loose stools, melena, nausea, odynophagia, rectal bleeding, tenesmus, vomiting or weight changes Vital Signs Vital Signs Vital Signs: 03/20/25 06:30 03/20/25 06:32 Temperature 97.5 F L Temperature Source Temporal Pulse Rate 71 Respiratory Rate 16 Respiratory Pattern Normal Blood Pressure 114/72 Blood Pressure Mean 86 Blood Pressure Source Monitor Blood Pressure Position Semi-Fowlers Blood Pressure Location Left Arm Pulse Ox 94 Oxygen Delivery Method Room Air Weight Weight: 214 lb 12.8 oz Body Mass Index (BMI) 30.8 Physical Exam Const alert, oriented x3, no apparent distress and healthy appearing General Appearance: cooperative GI normal to inspection, nondistended, normoactive bowel sounds, soft to palpation,non-tender and non-distended Percussion: normal to percussion Rectal Exam: deferred Assessment & Plan Assessment/Plan (1) Cirrhosis, alcoholic: (2) Dysphagia: PLAN: Assessment and Plan Assessment and Plan (1) Cirrhosis, alcoholic: Status: Chronic Plan: Latest MELD sodium score 6 from all MELD labs on January 24, 2025., Child score A. Platelet count normal Liver ultrasound with elastography shows mildly enlarged liver, 18.5 kPa, suggestive of advanced fibrosis/cirrhosis, metavir stage IV. Abdomen triple phase was negative for arterial enhancing lesion or bile salt. It shows peripheral wedge-shaped. Vascular shunt in right lower hepatic lobe which is stable from previous exam. Patient most likely has alcoholic cirrhosis. carvedilol 12.5 mg twice daily for primary prophylaxis of esophageal varices 2D echo August 2023 Interpretation Summary Normal LV size. The estimated ejection fraction is 50 %. Mild segmental systolic dysfunction (see wall motion). Mild (1+) eccentric mitral valve insufficiency. Mild (1+) tricuspid valve insufficiency. RVSP 37 mmHg. 2 g sodium diet, avoiding excessive fluid, fast and frozen food recommended. Last EGD does not showvarices. Currently patient has leg edema advised to hold amlodipine 5 mg. If swelling does not improve in last 1 month will need low-dose furosemide and spironolactone. Patient has follow-up appointment with Dr. Cuevas in the next 1 to 2 months. (2) Diverticula of colon: Status: Acute Plan: Last admission in January 2025 due to acute anemia of blood loss from lower GI bleed most likely due to recurrent diverticular bleed Previous colonoscopy in August 2022 for lower [...] lesions. Treated with argon plasma coagulation (APC). Patient did not had any blood loss/rectal bleed. Hemoglobin also improving. Last H&H 11.2/33.4%. Advised to go back on baby aspirin as patient has history of multiple PA with 4 stents with last stent in November 2021. Continue ferrous sulfate, ascorbic acid and PPI. Repeat labs ordered in 1 month. Follow-up in GI office in 4 months Orders: Orders ABD Limited w/ Elastography 1 Month D64.9 - Anemia, unspecified, I21.4 - Non- STelevation (NSTEMI) myocardial infarction, I25.10 - Atherosclerotic heart diseaseof teller coronary artery without anginapectoris, K70.30 - Alcoholic cirrhosis of liver without ascites, R06.02 - Shortness of breath Comprehensive Metabolic Profil 1 Month D64.9 - Anemia, unspecified, I21.4 - Non- ST elevation (NSTEMI) myocardial infarction, I25.10 - Atherosclerotic heart disease of teller coronary artery without angina pectoris, K70.30 - Alcoholic cirrhosis of liver without ascites, R06.02 - Shortness of breath Prothrombin Time w/INR 1 Month D64.9 - Anemia, unspecified, I21.4 - Non-ST elevation (NSTEMI) myocardial infarction, I25.10 - Atherosclerotic heart diseaseof teller coronary artery without angina pectoris, K70.30 - Alcoholic cirrhosis of liver without ascites, R06.02 - Shortness of breath Ferritin 1 Month D64.9 - Anemia, unspecified, I21.4 - Non-ST elevation (NSTEMI)myocardial infarction, I25.10 - Atherosclerotic heart disease of teller coronaryartery without angina pectoris, K70.30 -Alcoholic cirrhosis of liver without ascites, R06.02 - Shortness of breath CBC W/Diff, Automated 1 Month D64.9 - Anemia, unspecified, I21.4 - Non-ST elevation (NSTEMI) myocardial infarction, I25.10 - Atherosclerotic heart diseaseof teller coronary artery without angina pectoris, K70.30 - Alcoholic cirrhosis of liver without ascites, R06.02 - Shortness of breath Iron+Iron Binding Capacity 1 Month D64.9 - Anemia, unspecified, I21.4 - Non-ST elevation (NSTEMI) myocardial infarction, I25.10 - Atherosclerotic heart diseaseof teller coronary artery without anginapectoris, K70.30 - Alcoholic cirrhosis of liver without ascites, R06.02 - Shortness of breath Vitamin B12 1 Month D64.9 - Anemia, unspecified, I21.4 - Non-ST elevation (NSTEMI) myocardial infarction, I25.10 - Atherosclerotic heart disease of nativecoronary artery without angina pectoris, K70.30 - Alcoholic cirrhosis of liver without ascites, R06.02 - Shortness of breath 03/20/25 0659 Cosigner Signature (if applicable): CC: Dr. Valeriano Cohe MD; Ahmet Chacon, DO~ Signed [facility]08-28-2025 [facility]WP[facility]08-18-2025 NoteGrand [facility]08-18-2025 History of Present illness Narrative* Nahid Turner MA - 03/10/2025 2:45 PM EDT Scan on 03/10/2025 12:36 PM by Provider, DAVID Smart-C: Chemistry Scan on 03/10/2025 12:20 PM by ProviderBing PA-C: Abd limited w/ elastography Scan on 03/10/2025 12:11 PM by ProviderBing PA-C: PT/INR Scan on 03/10/2025 11:35 AM by ProviderBing PA-C: Hematology GI Physician letter and H&P. Surgical hx updated. Scan on 03/20/2025 7:51 AM by Bing Salmeron PA-C: Provation Physician Letter, Dr. Chacon Scan on 03/20/2025 7:08 AM by ProviderBing PA-C: Dr. Chacon documented in this encounterPromedica [facility]08-[facility]-20[facility] Radiology Diagnostic study note [facility] Imaging Services [address], [place] [address] ABD Limited w/ Elastography MR#: [id number] Acct: [id number] Name: NAZARIO HUTTON Rep #: [id number] : 1950 M 74 From: Romel Pretyt MD PCP: Dr. Valeriano Choe MD Status: REG CLI Study:ABD Limited w/ Elastography Date of Exa m: 03/10/25 Exam# [id number] Ordering Dr: Tessa Blanco MD PROCEDURE: ABD LIMITED W/ ELASTOGRAPHY REASON FOR EXAM: CIRRHOSIS, R/O ASCITES COMPARISON: Prior study dated May 14, 2024. TECHNIQUE: Right upper quadrant abdominal ultrasound. SmartPill ElastQ Imaging shear wave elastography for non-invasive assessment of liver tissue stiffness. SmartPill EPIQ Elite. FINDINGS: LIVER: Size: Enlarged (hepatomegaly) [...] measurement may be in question. Reading Location: [id number] CC: Dr. Valeriano Choe MD; Dr. Shubham Blanco MD ~ Dependency Case Manager: Signed [facility]08-06-2025 NoteGrand [facility]08-06-2025 Radiology Diagnostic study note [facility] Imaging Services [address] [place], [place] [id number] Abdomen Single View MR#: [id number] Acct: [id number] Name: NAZARIO HUTTON Rep #: [id number] : 1950 M 74 From: Tali Laws MD PCP: Dr. Valeriano Choe MD Status: REG CLI Study:Abdomen Single View Date of Exam: 02/25/25 Exam# [id number] Ordering Dr: Ashley Radford PROCEDURE: ABDOMEN SINGLE [...] Single View IMPRESSION: Bilateral nephrolithiasis. Reading Location: [place] [address] CC: Dr. Valeriano Choe MD; Ashley Radford ~ Dependency Case Manager: Signed [facility]07-18-2025 NoteGrand [facility]07-18-2025 History of Present illness Narrative* Lupillo Goel LPN - 02/07/2025 12:43 PM EDT Scan on 02/07/2025 12:11 PM by ProviderBing PA-C: Hematology Scan on 02/07/2025 12:41 PM by ProviderBing PA-C: Chemistry documented in this encounterPromedica [facility]07-10-2025 Instructions* Patient Instructions* Valeriano Choe MD - 01/30/2025 12:27 PM EDT We discussed your recent hospitalization and follow-up care: - You were hospitalized for a gastrointestinal (GI) bleed caused by two bleeding angiodysplastic lesions, which are benign but can cause rectal bleeding. These were treated during your hospital stay. - You are currently taking Ferrous Sulfate (iron supplement) and Protonix (acid- reducing medication). Please continue these medications as prescribed [...] bright red blood or significant changes in yourstool, please contact our office. We discussed your upcoming appointments and tests: - You have a lab appointment on March 10 to check your iron levels and hemoglobin. - You are scheduled for a colonoscopy with Dr. Blanco on March 20. This will evaluate for any newor recurring angiodysplasia or other abnormalities. Dr. Blanco may also determine whether you shouldcontinue taking Protonix and iron based on your [...] per day. Start slowly to avoid gas orbloating. - Drink plenty of water with fiber to help soften stools and make them easier to pass. - Avoid straining during bowel movements to reduce the risk of further bleeding or hemorrhoid irritation. - For gas management, you can take an vphh-cut-qscdrcb product like Beano (E-L-B-E-N-O) before meals or [...] have concerns, please follow up with Dr. Butler. Additional instructions: - Be cautious when standing up from a seated or lying position, as your blood pressure may be lowerdue to mild anemia. Stand up slowly to avoid dizziness or lightheadedness. - Continue monitoring for any new or worsening symptoms, including abdominal pain, nausea, vomiting, or changes in stool. Co ntact our office if these occur. Please follow up with Dr. Blanco after your colonoscopy and lab results to discuss your ongoing careplan. If you have any questions or concerns before then, feel free to reach out to our office. documented in this encounterPromedica [facility]07-10-2025 History of Present illness Narrative* Valeriano Choe MD - 01/30/2025 11:20 AM EDT Chief Complaint Patient presents with: [facility] F/U [facility] Nazario Hutton is a 74 year old male who presents here today for a Hospital follow up. Pt admitted into [facility] on 01/23/25 for GI bleed. Discharge summary: Date of Admission: 01/23/25 Date of Discharge: 01/25/25 Consultations 01/23/25 23:00 Consult: Gastroenterology Routine Consulting Provider: [facility] Reason for Consult: LGIB with ABLA. [...] outpatient colonoscopy with Dr. Chacon. Follow-up with Daphne flores of in 2 weeks. 2. Acute [...] fat abdomen possible small ascites. Follow-up in [facility] 01/25: Follow-up as scheduled for stenosis 9. [...] (Auto) 58.3, Lymph % (Auto) 16.0 L, Johnston % (Auto) 13.7 H, Eos % (Auto) [...] Albumin 3.8, Globulin 2.9, Albumin/Globulin Ratio 1.3, Ckuwmp50, Vitamin B12 1003 H 01/23/25 21:09: Urine Color Straw, Urine Clarity Clear, Urine pH 6.0, Ur Specific [place] 1.015, Urine Protein Negative, Urine Glucose (UA) [...] % (Auto) 60.1, Lymph % (Auto)16.3 L, Johnston % (Auto) 12.8 H, Eos % (Auto) [...] which lasted from Monday to Monday. He hasa follow-up appointment with Gastroenterology and is scheduled for labs on the to assess the ef fectiveness of the iron supplementation. He is also scheduled for a colonoscopy on March 20 to evaluate for any new or recurrent angiodysplasia. Nazario reports no pain associated with the GI bleed, but describes the bleeding as like water and dark in color, similar to an episode 2 years ago. He denies any further bleeding since discharge, aswell as any melena, abdominal pain, bloating, nausea, or emesis. He does report occasional lightheadedness and dizziness, which he attributes to his medications. He notes that his blood pressure has been a little low and inquires about the possibility of still being mildly anemic. He is currentlytaking ferrous sulfate once daily and vitamin C, though he is unsure of the dosage. Nazario also reports issues with gas and flatulence, which he finds embarrassing, especially during physical activities like softball and baseball. He inquires about dietary modifications to reduce gasproduction. He denies any current issues with hemorrhoids. Additionally, Nazario has a history of neuropathy and is under the care of Dr. Butler. He is currentlytaking gabapentin, which was recently increased to 1,200 mg twice daily. He reports no burning pain, but does experience numbness and swelling in his feet, which can last for days. 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 andOverweight. Lungs: Lungs clear to auscultation. No wheezing, rhonchi, rales.. Heart: RRR without murmur, gallop, or rubs. No ectopy. Abdomen: Normal abdominal exam, Abdomen soft, non-tender. Bowel sounds normal. No masses, organomegaly. [facility] Maintenance List Medicare Advantage Annual Wellness [...] 8.21 6.7 (E) 7.49 7.57 8.41 8.60 6.586.03 RBC 4.20 - 6.00 m/uL 4.26 4.54 [...] (L) 0.65 (L) 0.91 (L) 0.83 (L) 0.64(L) 0.78 (L) 0.59 (L) 0.80 (L) Johnston% % 8.3 11.1 12.2 13.2 7.9 11.7 13.9 13.2 11.4 9.5 10.9 12.8 Abs Johnston <0.87 k/uL 0.80 0.98 (H) 1.06 (H) 0.93 (H) 0.91 (H) 0.96 (H) 1.04 (H) 1.00 (H) 0.96 (H)0.82 0.72 0.77 Eosin% % 10.6 4.5 11.4 [...] <0.01 <0.01 <0.01 <0.01 <0.01 <0.01 <0.01 <0.01<0.01 <0.01 <0.01 <0.01 <0.01 DTYPE Auto Auto [...] vomiting since discharge. Patient experiences occasional lightheadedness, likelydue to mild anemia. Patient has a follow-up [...] next routine or sooner if needed. Valeriano Choe MD I spent a total of 41 minutes on the date of the service which included preparing to see the patient, [id number] patient care, completing clinical documentation, performing a medically appropriate examination, counseling and educating the patient/family/caregiver and ordering medications, tests, or procedures. Recording using [employer] software for draft documentation of the visit was discussed with the patient/authorized warehouse representative; all questions welcomed and answered. Patient/authorized warehouse representative agreed to proceed documented in this encounterPromedica Bay Park [facility]07-10-2025 NoteGrand [facility]07-10-2025 NoteHNO ID: [id number] Author: NAHID TURNER MA Service: ? Author Type: Copyright Manager Type: Progress Notes Filed: 01/30/2025 11:15 Note Text: Scan on 01/30/2025 9:43 AM by Bing Salmeron PA-C: Consultation - Allergy [facility]07-10-2025 History of Present illness Narrative* Nahid Turner MA - 01/30/2025 11:14 AM EDT Scan on 01/30/2025 9:43 AM by Bing Salmeron PA-C: Consultation - Allergy documented in this encounterPromedica Bay Park Hospital07-07-2025 NoteGrand [facility]07-07-2025 History of Present illness Narrative* Nahid Turner MA - 01/27/2025 9:07 AM EDT Do you want Hospital f/u appt? Nahid Turner MA Scan on 01/24/2025 12:49 AM by Bing Salmeron PA-C: [facility] Scan on 01/24/2025 6:04 AM by Bing Salmeron PA-C: [facility] Hospitalist OV Scan on 01/25/2025 10:09 AM by Bing Salmeron PA-C: [facility] Discharge summary documented in this encounterPromedica Bay Park Hospital07-05-2025 Discharge summary Author Shubham Blanco [facility] Note Date/Time January 25, 2025 9:59a m [facility] Medical Records Department [address] [place] [address] Discharge Summary 01/25/25 0926 MR#: [id number] Acct: [id number] Name: NAZARIO HUTTON Rep #:[id number] : 1950 74 From: Shubham Choudhury PCP: Dr. Valeriano Choe MD Status:ADM IN Location: [place] [id number] Providers Date of Admission: 01/23/25 Date of Discharge: 01/25/25 Primary Care Physician: Dr. Valeriano Choe MD Consultations 01/23/25 23:00 Consult: Gastroenterology Routine Consulting Provider: [facility] Reason for Consult: LGIB with ABLA. [...] outpatient colonoscopy with Dr. Chacon. Follow-up with Daphne flores of in 2 weeks. 2. Acute [...] fat abdomen possible small ascites. Follow-up in [facility] 01/25: Follow-up as scheduled for stenosis 9. [...] (Auto) 58.3, Lymph % (Auto) 16.0 L, Johnston % (Auto) 13.7 H, Eos % (Auto) [...] Albumin 3.8, Globulin 2.9, Albumin/Globulin Ratio 1.3, [id number], Vitamin B12 1003 H 01/23/25 21:09: Urine Color Straw, Urine Clarity Clear, Urine pH 6.0, Ur Specific [place] 1.015, Urine Protein Negative, Urine Glucose (UA) [...] % (Auto) 60.1, Lymph % (Auto)16.3 L, Johnston % (Auto) 12.8 H, Eos % (Auto) [...] H, RDW Coeff of Dorie 14.4, Plt [id number], MPV 9.9, Immature Gran % (Auto) 0.500, Neut % (Auto) 62.6, Lymph % (Auto) 13.0 L, Johnston % (Auto) 14.3 H, Eos % (Auto) [...] Provider: Shubham Blanco Primary Care Provider: Valeriano Choe Consulting Providers: Tessa Hampton Instructions Additional Instructions [...] B12] Tablet 1 tab PO DAILY omega 8-xnz-hec-fish oil 100-400-1,000 mg capsule 1 cap PO [...] until sees PCP. Referrals / Follow Up: Valeriaon Choe MD [Primary Care Provider] - Daphne Ulloa PA [Med Staff - Adv Practice [...] H, RDW Coeff of Dorie 14.4, Plt [id number], MPV 9.9, Immature Gran % (Auto) 0.500, Neut % (Auto) 62.6, Lymph % (Auto) 13.0 L, Johnston % (Auto) 14.3 H, Eos % (Auto) [...] 8.5, Phosphorus 2.8 Visit Charges Inpatient E&M: 17771 Disch Hosp >30min 01/25/25 0930 <Electronically signed by Shubham Blanco MD> Cosigner Signature (if applicable): CC: Dr. Valeriano Choe MD; Dr. Shubham Blanco MD; DAVID Asencio; Ahmet Chacon DO~ Signed ADDENDUM by Dr. Shubham Blanco MD on 01/25/25 at 0959 Addendum MELD sodium score is 6. Child A. 01/25/25 09<Electronically signed by Shubham Blanco MD> Cosigner Signature (if applicable): cc: Dr. Valeriano Choe MD; Dr. Shubham Blanco MD; DAVID Asencio; Ahmet Chacon DO ~* Signed [facility] Work Phone: [phone]) 167-659807-05-2025 Discharge summary Author Shubham [facility] Note Date/Time January 25, 2025 9:26a m [facility] Medical Records Department [address] [place] [address] Instructions for Home/Discharge Instructions 01/25/25 0917 MR#: [id number] Acct: [id number] Name: NAZARIO HUTTON Rep #:[id number] : 1950 74 From: Shubham Choudhury PCP: Dr. Valeriano Choe MD Status:ADM IN Discharge Instructions Diet Discharge [...] Provider: Shubham Blanco Primary Care Provider: Valeriano Choe Consulting Providers: Tessa Hampton Instructions Additional Instructions [...] B12] Tablet 1 tab PO DAILY omega 7-vkj-fqq-fish oil 100-400-1,000 mg capsule 1 cap PO [...] sees PCP. Referrals / Follow Up: Valeriano Choe MD [Primary Care Provider] - Daphne Ulloa PA [Med Staff - Count Includes [facility] Practice Prof] - Within 2 Weeks (To schedule colonoscopy with Dr. Chacon) Disposition Disposition (needs filled in before D/C Order can be placed): Home, Self Care 01/25/25925<Electronically signed by Shubham Blanco MD>Shubham Blanco MD CC: Dr. Tessa Hampton DO; Dr. Valeriano Choe MD ~ Signed [facility] Work Phone: [phone]) 397-595507-05-2025 Discharge summary [facility] Medical Records Department [address] [place] [address] Discharge Summary 01/25/25925 MR#: [id number] Acct: [id number] Name: NAZARIO HUTTON Rep #:[id number] : 1950 74 From: Shubham Choudhury PCP: Dr. Valeriano Choe MD Status:ADM IN Location: [facility] EOW132- 1 Providers Date of Admission: 01/23/25 Date of Discharge: 01/25/25 Primary Care Physician: Dr. Valeriano Choe MD Consultations 01/23/25 23:00 Consult: Gastroenterology Routine Consulting Provider: Karla Gastroenterology Reason for Consult: LGIB with ABLA. [...] outpatient colonoscopy with Dr. Chacon. Follow-up with Daphne attendance of in 2 weeks. 2. Acute [...] fat abdomen possible small ascites. Follow-up in [facility] 01/25: Follow-up as scheduled for stenosis 9. [...] (Auto) 58.3, Lymph % (Auto) 16.0 L, Johnston % (Auto) 13.7 H, Eos % (Auto) [...] Albumin 3.8, Globulin 2.9, Albumin/Globulin Ratio 1.3, Njiins85, Vitamin B12 1003 H 01/23/25 21:09: Urine Color Straw, Urine Clarity Clear, Urine pH 6.0, Ur Specific [place] 1.015, Urine Protein Negative, Urine Glucose (UA) [...] % (Auto) 60.1, Lymph % (Auto)16.3 L, Johnston % (Auto) 12.8 H, Eos % (Auto) [...] H, RDW Coeff of Dorie 14.4, Plt [id number], MPV 9.9, Immature Gran % (Auto) 0.500, Neut % (Auto) 62.6, Lymph % (Auto) 13.0 L, Johnston % (Auto) 14.3 H, Eos % (Auto) [...] Provider: Shubham Blanco Primary Care Provider: Valeriano Choe Consulting Providers: Tessa Hampton Instructions Additional Instructions [...] B12] Tablet 1 tab PO DAILY omega 8-wwe-lru-fish oil 100-400-1,000 mg capsule 1 cap PO [...] sees PCP. Referrals / Follow Up: Valeriano Choe MD [Primary Care Provider] - Daphne Ulloa PA [Med Staff - Adv Practice [...] H, RDW Coeff of Dorie 14.4, Plt Krema883, MPV 9.9, Immature Gran % (Auto) 0.500, Neut % (Auto) 62.6, Lymph % (Auto) 13.0 L, Johnston % (Auto) 14.3 H, Eos % (Auto) [...] 8.5, Phosphorus 2.8 Visit Charges Inpatient E&M: 09363 Disch Hosp >30min 01/25/25 0930 Cosigner Signature (if applicable): CC: Dr. Valeriano Choe MD; Dr. Shubham Blanco MD; DAVID Asencio; Ahmet Chacon DO~ Signed ADDENDUM by Dr. Shubham Blanco MD on 01/25/25 at 0959 Addendum MELD sodium score is 6. Child A. 01/25/25 0959 Cosigner Signature (if applicable): cc: Dr. Valeriano Choe MD; Dr. Shubham Blanco MD; DAVID Asencio; Ahmet Chacon DO ~* Signed [facility]07-05-2025 Discharge summary [facility] Medical Records Department [address] [place] [address] Instructions for Home/Discharge Instructions 01/25/2517 MR#: [id number] Acct: [id number] Name: NAZARIO HTUTON Rep #:[id number] : 1950 74 From: Shubham Choudhury PCP: Dr. Valeriano Choe MD Status:ADM IN Discharge Instructions Diet Discharge [...] Visit: Acute lower GI bleed Attending Provider: Suhbham Blanco Primary Care Provider: Valeriano Choe Consulting Providers: Tessa Hampton Instructions Additional Instructions [...] B12] Tablet 1 tab PO DAILY omega 2-zue-qmd-fish oil 100-400-1,000 mg capsule 1 cap PO [...] sees PCP. Referrals / Follow Up: Valeriano Choe MD [Primary Care Provider] - Daphne Ulloa PA [Med Staff - Count Includes [facility] Practice Prof] - Within 2 Weeks (To schedule colonoscopy withDr. Friend) Disposition Disposition (needs filled in before D/C Order can be placed): Home, Self Care 01/25/25 0926Shubham Blanco MD CC: Dr. Tessa Hampton DO; Dr. Valeriano Choe MD ~ Signed [facility]05[facility] Progress note Author Shubham Blanco [facility] Note Date/Time January 24, 2025 12:15 pm [facility] Medical Records Department [facility] [place] [address] Progress Note - Hospitalist 01/24/25 0747 MR#: [id number] Acct: [id number] Name: NAZARIO HUTTON Rep #:[id number] : 1950 74 From: Shubham Choudhury PCP: Dr. Valeriano Choe MD Status:ADM IN Location: [place] [address] Reason for Visit Reason for Visit: Diagnoses [...] (Auto) 58.3, Lymph % (Auto) 16.0 L, Johnston % (Auto) 13.7 H, Eos % (Auto) [...] Albumin 3.8, Globulin 2.9, Albumin/Globulin Ratio 1.3, Owsppn36, Vitamin B12 1003 H 01/23/25 21:09: Urine Color Straw, Urine Clarity Clear, Urine pH 6.0, Ur Specific [place] 1.015, Urine Protein Negative, Urine Glucose (UA) [...] % (Auto) 60.1, Lymph % (Auto)16.3 L, Johnston % (Auto) 12.8 H, Eos % (Auto) [...] fat abdomen possible small ascites. Follow-up in [facility] 9. Essential hypertension; carvedilol and amlodipine - [...] (Auto) 58.3, Lymph % (Auto) 16.0 L, Johnston % (Auto) 13.7 H, Eos % (Auto) [...] Albumin 3.8, Globulin 2.9, Albumin/Globulin Ratio 1.3, Byplli38, Vitamin B12 1003 H 01/23/25 21:09: Urine Color Straw, Urine Clarity Clear, Urine pH 6.0, Ur Specific [place] 1.015, Urine Protein Negative, Urine Glucose (UA) [...] % (Auto) 60.1, Lymph % (Auto)16.3 L, Johnston % (Auto) 12.8 H, Eos % (Auto) [...] INR 1.0 Charges/Coding Visit Charges Inpatient E&M: 88391 Subs Hosp L2 01/24/25 1215 <Electronically signed by Shubham Blanco MD> Cosigner Signature (if applicable): CC: ~ Signed [facility] Work Phone: 1(368) 829-666407-04-2025 Progress note [facility] Medical Records Department [address] [place] [address] Progress Note - Hospitalist 01/24/25 0747 MR#: [id number] Acct: [id number] Name: NAZARIO HUTTON Rep #:[id number] : 1950 74 From: Shubham Choudhury PCP: Dr. Valeriano Choe MD Status:ADM IN Location: [place] [address] Reason for Visit Reason for Visit: Diagnoses [...] (Auto) 58.3, Lymph % (Auto) 16.0 L, Johnston % (Auto) 13.7 H, Eos % (Auto) [...] Albumin 3.8, Globulin 2.9, Albumin/Globulin Ratio 1.3, Bmjwwy05, Vitamin B12 1003 H 01/23/25 21:09: Urine Color Straw, Urine Clarity Clear, Urine pH 6.0, Ur Specific [place] 1.015, Urine Protein Negative, Urine Glucose (UA) [...] % (Auto) 60.1, Lymph % (Auto)16.3 L, Johnston % (Auto) 12.8 H, Eos % (Auto) [...] (Auto) 58.3, Lymph % (Auto) 16.0 L, Johnston % (Auto) 13.7 H, Eos % (Auto) [...] Albumin 3.8, Globulin 2.9, Albumin/Globulin Ratio 1.3, Oaigzr87, Vitamin B12 1003 H 01/23/25 21:09: Urine Color Straw, Urine Clarity Clear, Urine pH 6.0, Ur Specific [place] 1.015, Urine Protein Negative, Urine Glucose (UA) [...] % (Auto) 60.1, Lymph % (Auto)16.3 L, Johnston % (Auto) 12.8 H, Eos % (Auto) [...] INR 1.0 Charges/Coding Visit Charges Inpatient E&M: 42287 Subs Hosp L2 01/24/25 1215 Cosigner Signature (if applicable): CC: ~ Signed [facility]07-04-2025 History and physical note Author Tessa Roca [facility] Note Date/Time January 24, 2025 5:59a m [facility] Medical Records Department [address] [place] [address] H&P Exam - Hospitalist 01/23/252206 MR#: [id number] Acct: [id number] Name: NAZARIO HUTTON Rep #:[id number] : 1950 74 From: Tessa García DO PCP: Dr. Valeriano Choe MD Status:ADM IN Location: [place] [address] HPI - General General Date of Admission: [...] with patient requiring intubation who presents to [facility] ER complaining of LGIB. Mr. Hutton [...] is expected to extend beyond 2 midnights. [facility] Medical History (Updated 01/24/25 @ 05:[address] Tessa Hampton, DO) High serum parathyroid hormone (PTH) Heart murmur Elevated alkaline phosphatase level Elevated PSA Diverticulosis AVM (arteriovenous malformation) of colon Vitamin D deficiency Gout Alcohol abuse Essential hypertension Chest pain Anxiety Depression Myocardial infarct Chest pain Acute blood loss anemia Bloody diarrhea Coronary artery disease Atherosclerotic heart disease of teller coronary artery without angina pectoris ST elevation PA (STEMI) (~11/29/21) Hyperlipidemia Hypertension Home Medications ?Medication [...] disease Hypertension Myocardial infarction age 53 following PA. Surgical History H/O colonoscopy S/P cataract extraction [...] (Auto) 58.3, Lymph % (Auto) 16.0 L, Johnston % (Auto) 13.7 H, Eos % (Auto) [...] 75 minutes. Charges/Coding Visit Charges Inpatient E&M: 70325 Init Hosp L3 01/24/25 0559 <Electronically signed by Tessa Hampton DO> Cosigner Signature (if applicable): CC: Dr. Tessa Hampton DO; Dr. Valeriano Choe MD~ Signed [facility] Work Phone: 1(703) 489-362407-04-2025 History and physical note [facility] Medical Records Department [address] [place] [address] H&P Exam - Hospitalist 01/23/257 MR#: [id number] Acct: [id number] Name: NAZARIO HUTTON Rep #:[id number] : 1950 74 From: Tessa García DO PCP: Dr. Valeriano Choe MD Status:ADM IN Location: [place] [address] HPI - General General Date of Admission: [...] with patient requiring intubation who presents to [facility] ER complaining of LGIB. Mr. Hutton [...] that is expectedto extend beyond 2 midnights. [facility] Medical History (Updated 01/24/25 @ 05:[address] Tessa Hampton, ) High serum parathyroid hormone (PTH) Heart murmur Elevated alkaline phosphatase level Elevated PSA Diverticulosis AVM (arteriovenous malformation) of colon Vitamin D deficiency Gout Alcohol abuse Essential hypertension Chest pain Anxiety Depression Myocardial infarct Chest pain Acute blood loss anemia Bloody diarrhea Coronary artery disease Atherosclerotic heart disease of teller coronary artery without angina pectoris ST elevation PA (STEMI) (~11/29/21) Hyperlipidemia Hypertension Home Medications ?Medication [...] disease Hypertension Myocardial infarction age 53 following PA. Surgical History H/O colonoscopy S/P cataract extraction [...] (Auto) 58.3, Lymph % (Auto) 16.0 L, Johnston % (Auto) 13.7 H, Eos % (Auto) [...] 75 minutes. Charges/Coding Visit Charges Inpatient E&M: 25370 Init Hosp L3 01/24/25 0559 Cosigner Signature (if applicable): CC: Dr. Tessa Hampton DO; Dr. Valeriano Choe MD~ Signed [facility]07-04-2025 Discharge summary Author Jae Mcclure [facility] Note Date/Time January 24, 2025 12:39 am [facility] Medical Records Department [address] [place] [address] Emergency Department Summary 01/23/25 MR#: [id number] Acct: [id number] Name: NAZARIO HUTTON Rep #:[id number] : 1950 74 From: Jae Mcclure MD PCP: Dr. Valeriano Choe MD Status:ADM IN Location: [address] 1 HPI HPI - GI History of Present Illness Chief Complaint: GI Bleed Informant: patient Nausea/Vomiting/Emesis GI Symptom: Negative for Nausea Diarrhea/Melena/Hematochezia GI Symptom: Positive for Hematochezia Onset: Today and Yesterday Associated Symptoms Associated Symptoms: Negative for Dysuria, Frequency, Hematuria or Urgency Narrative Narrative: 74-year-old male, on baby aspirin prior PA hypertension prior GI bleed sounds like a [...] Prior similar symptoms: Yes Recent Illness/Hospitalization: Yes [facility] Medical History High serum parathyroid hormone (PTH) Heart murmur Elevated alkaline phosphatase level Elevated PSA Diverticulosis AVM (arteriovenous malformation) of colon Vitamin D deficiency Gout Alcohol abuse Essential hypertension Chest pain Anxiety Depression Myocardial infarct Chest pain Acute blood loss anemia Bloody diarrhea Coronary artery disease Atherosclerotic heart disease of teller coronary artery without angina pectoris ST elevation PA (STEMI) (~11/29/21) Hyperlipidemia Hypertension Home Medications ?Medication [...] disease Hypertension Myocardial infarction age 53 following PA. Surgical History H/O colonoscopy S/P cataract extraction [...] (Auto) 58.3 Lymph % (Auto) 16.0 L Johnston % (Auto) 13.7 H Eos % (Auto) [...] Acute lower gastrointestinal bleeding, Anemia, History of PA (myocardial infarction), History of GI diverticular bleed Prescriptions: No Action cholecalciferol (vitamin D3) 125 mcg (5,000 unit) capsule 125 mcg PO DAILY vitamin B complex [B Complex-Vitamin B12] Tablet 1 tab PO DAILY omega 6-rae-sne-fish oil 100-400-1,000 mg capsule 1 cap PO [...] for 2 doses Primary Care Provider: Valeriano Choe Referrals: Valeriano Choe MD [Primary Care Provider] - Print Language: Singaporean Disposition Disposition: Acute Care Hospital [facility] What to do if you have Problems For any increased pain, shortness of breath, bleeding, nausea or vomiting, chestpain, or any unexpected problems, contact your Primary Care Provider. Call [facility] ([phone]) or report to the closest Emergency Room. Call 911 if necessary. 01/24/25 0039 <Electronically signed by Jae Mcclure MD> Cosigner Signature (if applicable): CC: Dr. Valeriano Choe MD ~ Signed [facility] Work Phone: 1(544) [phone] Discharge summary [facility] Medical Records Department [address] [place] [address] Emergency Department Summary 01/23/25 MR#: [id number] Acct: [id number] Name: NAZARIO HUTTON Rep #:[id number] : 1950 74 From: Jae Mcclure MD PCP: Dr. Valeriano Choe MD Status:ADM IN Location: [place] [address] HPI HPI - GI History of Present Illness Chief Complaint: GI Bleed Informant: patient Nausea/Vomiting/Emesis GI Symptom: Negative for Nausea Diarrhea/Melena/Hematochezia GI Symptom: Positive for Hematochezia Onset: Today and Yesterday Associated Symptoms Associated Symptoms: Negative for Dysuria, Frequency, Hematuria or Urgency Narrative Narrative: 74-year-old male, on baby aspirin prior PA hypertension prior GI bleed sounds like a [...] Prior similar symptoms: Yes Recent Illness/[facility] Medical History High serum parathyroid hormone (PTH) Heart murmur Elevated alkaline phosphatase level Elevated PSA Diverticulosis AVM (arteriovenous malformation) of colon Vitamin D deficiency Gout Alcohol abuse Essential hypertension Chest pain Anxiety Depression Myocardial infarct Chest pain Acute blood loss anemia Bloody diarrhea Coronary artery disease Atherosclerotic heart disease of teller coronary artery without angina pectoris ST elevation PA (STEMI) (~11/29/21) Hyperlipidemia Hypertension Home Medications ?Medication [...] complex (B 1 tab PO DAILY feet 02/09/24 Unknown History Complex-Vitamin B12 tablet) isosorbide mononitrate [...] disease Hypertension Myocardial infarction age 53 following PA. Surgical History H/O colonoscopy S/P cataract extraction [...] (Auto) 58.3 Lymph % (Auto) 16.0 L Johnston % (Auto) 13.7 H Eos % (Auto) [...] Acute lower gastrointestinal bleeding, Anemia, History of PA (myocardial infarction), History of GIdiverticular bleed Prescriptions: No Action cholecalciferol (vitamin D3) 125 mcg (5,000 unit) capsule 125 mcg PO DAILY vitamin B complex [B Complex-Vitamin B12] Tablet 1 tab PO DAILY omega 8-ggt-hgm-fish oil 100-400-1,000 mg capsule 1 cap PO [...] for 2 doses Primary Care Provider: Valeriano Choe Referrals: Valeriano Choe MD [Primary Care Provider] - Print Language: Singaporean Disposition Disposition: Acute Care Hospital [facility] What to do if you have Problems For any increased pain, shortness of breath, bleeding, nausea or vomiting, chestpain, or any unexpected problems, contact your Primary Care Provider. Call [facility] ([phone]) or report tothe closest Emergency Room. Call 911 if necessary. 01/24/25 0039 Cosigner Signature (if applicable): CC: Dr. Valeriano Choe MD ~ Signed [facility]07-04-2025 Evaluation note* Diagnosis Onset Date Resolution Status Admit Date Acute cystitis without hematuria acu te January [...] 29, 2025 10:49am Diverticula of colon acute 2024 1:58pm Cirrhosis, alcoholic chronic Augu 2024 1:58pm Dysphagia acute March 20, 025 5:44am Cirrhosis, alcoholic chronic Augu st 2024 5:44am Atherosclerotic heart diseas e of teller coronary artery without angina pectoris acute May 08 1:04pm Chest pain acute May 08, 2025 1:04pm Essential hypertension acute Oc tob2024 1:04pm Hyperlipidemia acute May 082024 1:04pm SOB (shortness of breath) acute May 08, 2025 1:04pm [facility] [employer] [facility] Work Phone: [phone] Telephone encounter Note* Telephone Encounter - Sean Abbasi RN - 01/23/2025 12:59 PM EDT See triage note. Pt agreeable to ER. [facility]07-03-2025 Miscellaneous Notes* Telephone Encounter - Sean Abbasi [...] PCP. Nahid Turner MA documented in this encounterProm[facility] Telephone encounter Note * Telephone Encounter - [...] states he is going to appt with program/music director first. Reports he has had 5 episodes of tongue swelling since Jun and program/music director is going to help him with this. Pt states if rectal bleed starts again he will go straight to ER instead of allergy appt, otherwise he will go to allergy appt at 2 pm first. Phoned and spoke with nurse Mila at [facility] ER and given report. Advised pt said [...] dizziness. Reports he feels pretty good. Hx [id number]- sometimes get short of breath on exertion. 10. : N/A Protocols used: Rectal Hvdpqaeg-MESTD-PM [facility]07-03-2025 Miscellaneous Notes* Telephone Encounter - Sean Abbasi [...] states he is going to appt with program/music director first. Reports he has had 5 episodes of tongue swelling since Jun and program/music director is going to help him with this. Pt states if rectal bleed starts again he will go straight to ER instead of allergy appt, otherwise he will go to allergy appt at 2 pm first. Phoned and spoke with nurse Mila at [facility] ER and given report. Advised pt said [...] dizziness. Reports he feels pretty good. Hx [id number]- sometimes get short of breath on exertion. 10. : N/A Protocols used: Rectal Ditnnpqw-RFPIE-OB documented in this encounterProm[facility]ica [facility]07-[facility]-2025 Telephone encounter Note * Telephone Encounter - Nahid Turner MA - 01/23/2025 11:57 AM EDT Appt placed on Nurse Triage do due to no response from pt and message not being read. Want to get an update. Pt did not feel he needed an appt. Nahid Turner MA [facility]07-03-2025 Telephone encounter Note* Telephone Encounter - Nahid Turner MA - 01/23/2025 9:36 AM EDT Asked pt additional questions prior to sending to PCP. Nahid Turner MA [facility]06-11-20[facility] History of Present illness Narrative* Suzanna Dawson [...] pharmacy and is scheduled to see an Hack Saw Operator on January 23. Prozac was discontinued by the hospitalist due to possible correlation with angioedema. 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 Peripheral Pulses: Normal. Health Maintenance [facility] Medicare Advantage Annual Wellness Visit due on [...] Z09 (primary diagnosis) Patient scheduled to see program/music director on 01/23/25. Will follow with them for further evaluation of angioedema episodes. Agrees to hold off on starting new medication for anxiety/depression until seeing the program/music director based off their recommendations. 2. Essential hypertension, benign - ICD9: 401.1, ICD10: I10 Well controlled, no new concerns. - AMLODIPINE 5 MG TABLET Patient to follow up as needed and as scheduled for routine. Milena REDDING I have personally seen and examined the patient and performed the medical- decision making components. I have reviewed the Physician Bread Slicer Machine (PA) student's documentation and verified the findings inthe note as written. Any additions or changes are noted in bold/italics. Suzanna Dawson PA-C documented in this encounterProm[facility]06-09-2025 Discharge summary Author Alexi Olivas [facility] Note Date/Time December 30, 2024 9:04a [facility] Medical Records Department [address] [place] [address] Discharge Summary 12/30/24 0854 MR#: [id number] Acct: [id number] Name: NAZARIO HUTTON Rep #:[id number] : 1950 74 From: Alexi Olivas DO PCP: Dr. Valeriano Choe MD Status:ADM IN Location: ICU ICU07-1 Providers Date of Admission: 12/27/24 Primary Care Physician: Dr. Valeriano Choe MD Consultations 12/27/24 16:14 Consult: Tool Straightener / Pulmonary Medicine Routine Consulting Provider: Intensivists/Pulmonary [...] gtt. CCM consult Extubated 12/29 (2) Angioedema: Status: Acute [...] Patient is recommend to follow-up with an program/music director as outpatient. Patient also have prescription for [...] Clarity Cancelled, Urine pH Cancelled, Ur Specific [place] Cancelled, U Specif Grav (Refrac) Cancelled, Urine [...] 88.6 H, Lymph % (Auto) 3.8 L, Johnston % (Auto) 6.4, Eos % (Auto) 0.0, [...] Provider: Alexi Olivas Primary Care Provider: Valeriano Choe Consulting Providers: Tony Shultz; Ej Murguia; Ricci Ballesteros; Homer Meng; Tessa Ty; Joni Garsia; Viktor Francis; Belia [...] potentially still get worse. Allergy and Immunology: [facility] [phone]. Dr. Ortiz [phone]. Discharge Orders/Prescriptions Prescriptions: New prednisone 20 mg tablet 40 mg PO DAILY Qty: 10 0RF epinephrine [EpiPen] 0.3 mg/0.3 mL auto-injector 0.3 mg IM X1 PRN (Reason: anaphylaxis/angioedema) Qty: 1 0RF Rx Instructions: for 2 doses Continued cholecalciferol (vitamin D3) 125 mcg (5,000 unit) capsule 125 mcg PO DAILY vitamin B complex [B Complex-Vitamin B12] Tablet 1 tab PO DAILY omega 8-hbe-hoo-fish oil 100-400-1,000 mg capsule 1 cap PO [...] PO QDAY Referrals / Follow Up: Valeriano Choe MD [Primary Care Provider] - Within 2 Weeks Disposition Disposition (needs filled in before D/C Order can be placed): Home, Self Care Charges/Coding Visit Charges Inpatient E&M: 61966 Disch Hosp >30min 12/30/24 0904 <Electronically signed by Alexi Olivas DO> Cosigner Signature (if applicable): CC: Dr. Alexi Olivas DO; Dr. Valeriano Choe MD~ Signed [facility] Work Phone: 1(324) 884-235306-09-2025 Progress note [facility] Medical Records Department [address] [place] [address] Progress Note - Tool Straightener 12/30/24702 MR#: [id number] Acct: [id number] Name: NAZARIO HUTTON Rep #:[id number] : 1950 74 From: Homer Meng DO PCP: Dr. Valeriano Choe MD Status:ADM IN Location: ICU ICU07-1 Assessment [...] that the patient follow-up with a local allergy/wanigan clerk for further workup of his recurrent angioedema. This note was generated with [employer] dictation software. It may contain incorrectwords, spelling, [...] Clarity Cancelled, Urine pH Cancelled, Ur Specific [place] Cancelled, U Specif Grav (Refrac) Cancelled, Urine [...] 88.6 H, Lymph % (Auto) 3.8 L, Johnston % (Auto) 6.4, Eos % (Auto) 0.0, [...] affect normal Charges/Coding Visit Charges Inpatient E&M: 57184 Subs Hosp L2 12/30/24 1045 Cosigner Signature (if applicable): CC: ~ Signed [facility]06-09-2025 Discharge summary [facility] Medical Records Department [address] [place] [address] Discharge Summary 12/30/24 0854 MR#: [id number] Acct: [id number] Name: NAZARIO HUTTON Rep #:[id number] : 1950 74 From: Alexi Olivas DO PCP: Dr. Valeriano Choe MD Status:ADM IN [facility] Date of Admission: 12/27/24 Primary Care Physician: Dr. Valeriano Choe MD Consultations 12/27/24 16:14 Consult: Tool Straightener / Pulmonary Medicine Routine Consulting Provider: Intensivists/Pulmonary [...] angioedema. Sedation w fentanyl and dexmedetomidine gtt. [facility] consult Extubated 12/29 (2) Angioedema: Status: Acute [...] Patient is recommend to follow-up with an program/music director as outpatient. Patient also have prescription for [...] Clarity Cancelled, Urine pH Cancelled, Ur Specific [place] Cancelled, U Specif Grav (Refrac) Cancelled, Urine [...] 88.6 H, Lymph % (Auto) 3.8 L, Johnston % (Auto) 6.4, Eos % (Auto) 0.0, [...] Provider: Alexi Olivas Primary Care Provider: Valeriano Choe Consulting Providers: Tony Shultz; Ej Murguia; Ricci Ballesteros; Homer Meng; Tessa Ty; Joni Garsia; Viktor Francis; Belia Villanueva; Spike Floyd; Eric Dockery; Jim Marin; Isabel Hagen; Jaquelin Singh; Nelda Conde; Kasi Pina; Juancarlos Rebollar; Drew Gibbons; Kenan Crawley; Carl Lieberman; Ran Perea; Gregory Hernandez; Mohit Myers; Patria Crowe; Flakita Florenitno Instructions Additional Instructions / Restrictions: You had [...] potentially still get worse. Allergy and Immunology: [facility] [phone]. Dr. Ortiz [phone]. Discharge Orders/Prescriptions Prescriptions: New prednisone 20 mg tablet 40 mg PO DAILY Qty: 10 0RF epinephrine [EpiPen] 0.3 mg/0.3 mL auto-injector 0.3 mg IM X1 PRN (Reason: anaphylaxis/angioedema) Qty: 1 0RF Rx Instructions: for 2 doses Continued cholecalciferol (vitamin D3) 125 mcg (5,000 unit) capsule 125 mcg PO DAILY vitamin B complex [B Complex-Vitamin B12] Tablet 1 tab PO DAILY omega 7-cxm-rbn-fish oil 100-400-1,000 mg capsule 1 cap PO [...] PO QDAY Referrals / Follow Up: Valeriano Choe MD [Primary Care Provider] - Within 2 Weeks Disposition Disposition (needs filled in before D/C Order can be placed): Home, Self Care Charges/Coding Visit Charges Inpatient E&M: 50543 Disch Hosp >30min 12/30/24 0904 Cosigner Signature (if applicable): CC: Dr. Alexi Olivas DO; Dr. Valeriano Choe MD~ Signed [facility]06-09-2025 Progress note Author Homer Meng [facility] Note Date/Time December 30, 2024 10:45 am [facility] Medical Records Department [address] [place] [address] Progress Note - Tool Straightener 12/30/24 0703 MR#: [id number] Acct: [id number] Name: NAZARIO HUTTON Rep #:[id number] : 1950 74 From: Homer Meng DO PCP: Dr. Valeriano Choe MD Status:ADM IN Location: ICU ICU07-1 Assessment [...] that the patient follow-up with a local allergy/wanigan clerk for further workup of his recurrent angioedema. This note was generated with [employer] dictation software. It may contain incorrectwords, spelling, [...] Clarity Cancelled, Urine pH Cancelled, Ur Specific [place] Cancelled, U Specif Grav (Refrac) Cancelled, Urine [...] 88.6 H, Lymph % (Auto) 3.8 L, [place] % (Auto) 6.4, Eos % (Auto) 0.0, [...] affect normal Charges/Coding Visit Charges Inpatient E&M: 09814 Subs Hosp L2 12/30/24 1045 <Electronically signed by Homer Meng DO> Cosigner Signature (if applicable): CC: ~ Signed [facility] Work Phone: 1(606) 690-737406-09-2025 [facility] Progress note Author Alexi Olivas [facility] Note Date/Time December 29, 2024 12:41 pm [facility] Medical Records Department [address] [place] [address] Progress Note - Hospitalist 12/29/24717 MR#: [id number] Acct: [id number] Name: NAZARIO HUTTON Rep #:[id number] : 1950 74 From: Alexi Olivas DO PCP: Dr. Valeriano Choe MD Status:ADM IN Location: ICU ICU07-1 Reason [...] 92.1 H, Lymph % (Auto) 2.9 L, Johnston % (Auto) 4.4, Eos % (Auto) 0.0, [...] 12/29/24 05:35 IMPRESSION: See above Reading [facility] Physical Exam Const Constitutional Narrative: Saw [...] discharge 12/30. Charges/Coding Visit Charges Inpatient E&M: 10813 Subs Hosp L2 12/29/24 1241 <Electronically signed by Alexi Olivas DO> Cosigner Signature (if applicable): CC: ~ Signed [facility] Work Phone: 1(141) 233-168006-08-2025 Progress note [facility] Medical Records Department [address] [place] [address] Progress Note - Hospitalist 12/29/24 0718 MR#: [id number] Acct: [id number] Name: NAZARIO HUTTON Rep #:[id number] : 1950 74 From: Alexi Olivas DO PCP: Dr. Valeriano Choe MD Status:ADM IN Location: ICU ICU07-1 Reason [...] 92.1 H, Lymph % (Auto) 2.9 L, Johnston % (Auto) 4.4, Eos % (Auto) 0.0, [...] 12/29/24 05:35 IMPRESSION: See above Reading Location: [facility] Physical Exam Const Constitutional Narrative: Saw before [...] discharge 12/30. Charges/Coding Visit Charges Inpatient E&M: 89038 Subs Hosp L2 12/29/24 1241 Cosigner Signature (if applicable): CC: ~ Signed [facility]06-08-2025 Progress note Author Mohit Myers [facility] Note Date/Time December 29, 2024 9:55a m [facility] Medical Records Department [address] [place] [address] Progress Note - Tool Straightener 12/29/2419 MR#: [id number] Acct: [id number] Name: NAZARIO HUTTON Rep #:[id number] : 1950 74 From: Mohit Myers MD PCP: Dr. Valeriano Choe MD Status:ADM IN Location: ICU ICU07-1 Objective [...] 92.1 H, Lymph % (Auto) 2.9 L, Johnston % (Auto) 4.4, Eos % (Auto) 0.0, [...] 12/29/24 05:35 IMPRESSION: See above Reading [facility] Assessment and Plan . Assessment and [...] Cosigner Signature (if applicable): CC: ~ Signed [facility] Work Phone: 1(452) 977-393806-08-2025 Progress note [facility] Medical Records Department [address] [place] [address] Progress Note - Tool Straightener 12/29/24918 MR#: [id number] Acct: [id number] Name: NAZARIO HUTTON Rep #:[id number] : 1950 74 From: Mohit Myers MD PCP: Dr. Valeriano Choe MD Status:ADM IN Location: ICU ICU07-1 Objective [...] 92.1 H, Lymph % (Auto) 2.9 L, Johnston % (Auto) 4.4, Eos % (Auto) 0.0, [...] 12/29/24 05:35 IMPRESSION: See above Reading [facility] Assessment and Plan . Assessment and plan: [...] Cosigner Signature (if applicable): CC: ~ Signed [facility]06-08-2025 Radiology Diagnostic study note [facility] Imaging Services [address] [facility] [place] [address] Chest 1 View (Portable) MR#: [id number] Acct: [id number] Name: NAZARIO HUTTON Rep #: [id number] : 1950 M 74 From: Ebony Carr MD PCP: Dr. Valeriano Choe MD Status: ADM IN Study:Chest 1 View (Portable) Date of Exam: 12/29/24 Exam# [id number] Ordering Dr: Zina Myers MD PROCEDURE: CHEST [...] View (Portable) IMPRESSION: See above Reading Location: [facility] CC: Dr. Valeriano Choe MD; Dr. Mohit Myers MD ~ Dependency Case Manager: Signed [facility]06-07-2025 Consult note Author Mohit Myers [facility] Note Date/Time December 28, 2024 9:29p m [facility] Medical Records Department [address] [place] [address] Consultation - Tool Straightener 12/28/2416 MR#: [id number] Acct: [id number] Name: NAZARIO HUTTON Rep #:[id number] : 1950 74 From: Mohit Myers MD PCP: Dr. Valeriano Choe MD Status:ADM IN Location: ICU ICU07-1 HPI [...] ROS: Unable to obtain as pt intubated [facility] Medical History High serum parathyroid hormone (PTH) Heart murmur Elevated alkaline phosphatase level Elevated PSA Diverticulosis AVM (arteriovenous malformation) of colon Vitamin D deficiency Gout Alcohol abuse Essential hypertension Chest pain Anxiety Depression Myocardial infarct Chest pain Acute blood loss anemia Bloody diarrhea Coronary artery disease Atherosclerotic heart disease of teller coronary artery without angina pectoris ST elevation PA (STEMI) (~11/29/21) Hyperlipidemia Hypertension Home Medications ?Medication [...] disease Hypertension Myocardial infarction age 53 following PA. Surgical History H/O colonoscopy S/P cataract extraction [...] 12/28/24 05:29 IV 12/28/24 18:53 75 mls/hr .[id number] YASMIN Administration Dexmedetomidine HCl 400 mcg/ 100 [...] (Auto) 67.1, Lymph % (Auto) 9.8 L, Johnston % (Auto) 11.2 H, Eos % (Auto) [...] 92.9 H, Lymph % (Auto) 5.0 L, [place] % (Auto) 1.4, Eos % (Auto) 0.0, [...] Bilateral lower lung airspace disease is seen, jmmu-iadwjus-yjfz-right. Differential diagnosis includes atelectasis and pneumonitis. No evidence of pulmonary edema. The cardiomediastinal silhouette is within the normal range. No acute osseous change is evident. Reading Location: [address] Assessment and Plan . Assessment and [...] Cosigner Signature (if applicable): CC: Dr. Valeriano Choe MD~ Signed [facility] Work Phone: 1(746) 690-439806-07-2025 Consult note [facility] Medical Records Department [address] [place] [address] Consultation - Tool Straightener 12/28/24915 MR#: [id number] Acct: [id number] Name: NAZARIO HUTTON Rep #:[id number] : 1950 74 From: Mohit Myers MD PCP: Dr. Valeriano Choe MD Status:ADM IN Location: ICU ICU07-1 HPI [...] ROS: Unable to obtain as pt intubated [facility] Medical History High serum parathyroid hormone (PTH) Heart murmur Elevated alkaline phosphatase level Elevated PSA Diverticulosis AVM (arteriovenous malformation) of colon Vitamin D deficiency Gout Alcohol abuse Essential hypertension Chest pain Anxiety Depression Myocardial infarct Chest pain Acute blood loss anemia Bloody diarrhea Coronary artery disease Atherosclerotic heart disease of teller coronary artery without angina pectoris ST elevation PA (STEMI) (~11/29/21) Hyperlipidemia Hypertension Home Medications ?Medication [...] disease Hypertension Myocardial infarction age 53 following PA. Surgical History H/O colonoscopy S/P cataract extraction [...] 12/28/24 05:29 IV 12/28/24 18:53 75 mls/hr .[id number] YASMIN Administration Dexmedetomidine HCl 400 mcg/ 100 [...] (Auto) 67.1, Lymph % (Auto) 9.8 L, Johnston % (Auto) 11.2 H, Eos % (Auto) [...] 92.9 H, Lymph % (Auto) 5.0 L, Johnston % (Auto) 1.4, Eos % (Auto) 0.0, [...] Bilateral lower lung airspace disease is seen, ardx-hjqujzv-sryf-right. Differential diagnosis includes atelectasis and pneumonitis. No evidence of pulmonary edema. The cardiomediastinal silhouette is within the normal range. No acute osseous change is evident. Reading Location: [address] Assessment and Plan . Assessment and [...] Cosigner Signature (if applicable): CC: Dr. Valeriano Choe MD~ Signed [facility]06-07-2025 Progress note Author Alexi Olivas [facility] Note Date/Time December 28, 2024 2:04p m [facility] Medical Records Department [address] [place] [address] Progress Note - Hospitalist 12/28/24750 MR#: [id number] Acct: [id number] Name: NAZARIO HUTTON Rep #:[id number] : 1950 74 From: Alexi Olivas DO PCP: Dr. Valeriano Choe MD Status:ADM IN Location: ICU ICU07-1 Reason [...] (Auto) 67.1, Lymph % (Auto) 9.8 L, Johnston % (Auto) 11.2 H, Eos % (Auto) [...] 92.9 H, Lymph % (Auto) 5.0 L, Johnston % (Auto) 1.4, Eos % (Auto) 0.0, [...] Bilateral lower lung airspace disease is seen, kwfp-rghieev-adqm-right. Differential diagnosis includes atelectasis and pneumonitis. No evidence of pulmonary edema. The cardiomediastinal silhouette is within the normal range. No acute osseous change is evident. Reading Location: [address] Physical Exam Const Constitutional Narrative: on [...] angioedema. Sedation w fentanyl and dexmedetomidine gtt. [facility] consult Extubate when ok with [facility]. I informed nursing that I would be [...] prophylaxis: LMWH. Charges/Coding Visit Charges Inpatient E&M: 51889 Subs Hosp L2 12/28/24 1404 <Electronically signed by Alexi Olivas DO> Cosigner Signature (if applicable): CC: ~ Signed [facility] Work Phone: 1(806) 914-433106-07-2025 Progress note [facility] Medical Records Department [address] [place] [address] Progress Note - Hospitalist 12/28/24 0751 MR#: [id number] Acct: [id number] Name: NAZARIO HUTTON Rep #:[id number] : 1950 74 From: Alexi Olivas DO PCP: Dr. Valeriano Choe MD Status:ADM IN Location: ICU ICU07-1 Reason [...] (Auto) 67.1, Lymph % (Auto) 9.8 L, Johnston % (Auto) 11.2 H, Eos % (Auto) [...] 92.9 H, Lymph % (Auto) 5.0 L, Johnston % (Auto) 1.4, Eos % (Auto) 0.0, [...] Bilateral lower lung airspace disease is seen, hdok-kexovcy-uslg-right. Differential diagnosis includes atelectasis and pneumonitis. No evidence of pulmonary edema. The cardiomediastinal silhouette is within the normal range. No acute osseous change is evident. Reading Location: [address] Physical Exam Const Constitutional Narrative: on [...] prophylaxis: LMWH. Charges/Coding Visit Charges Inpatient E&M: 06004 Subs Hosp L2 12/28/24 140 Cosigner Signature (if applicable): CC: ~ Signed [facility]06-06-2025 History and physical note Author Flakita Florentino [facility] Note Date/Time December 27, 2024 2:52p m [facility] Medical Records Department [address] [place] [address] H&P Exam - Hospitalist 12/27/24 1411 MR#: [id number] Acct: [id number] Name: NAZARIO HUTTON Rep #:[id number] : 1950 74 From: Flakita Florentino DO PCP: Dr. Valeriano Choe MD Status:REG ER Location: ED HPI - General General Date of Admission: 12/27/24 Date of Service: 12/27/24 Chief Complaint: Tongue and lip swelling HPI Narrative NAZARIO HUTTON, is a 74 M who presented to the emergency department at [facility] on 12/27/2024 with tongue and lip [...] maintained on Solu-Medrol, H2 and H1 blockers. [facility] Medical History High serum parathyroid hormone (PTH) Heart murmur Elevated alkaline phosphatase level Elevated PSA Diverticulosis AVM (arteriovenous malformation) of colon Vitamin D deficiency Gout Alcohol abuse Essential hypertension Chest pain Anxiety Depression Myocardial infarct Chest pain Acute blood loss anemia Bloody diarrhea Coronary artery disease Atherosclerotic heart disease of teller coronary artery without angina pectoris ST elevation PA (STEMI) (~11/29/21) Hyperlipidemia Hypertension Home Medications ?Medication [...] disease Hypertension Myocardial infarction age 53 following PA. Surgical History H/O colonoscopy S/P cataract extraction [...] (Auto) 67.1, Lymph % (Auto) 9.8 L, Johnston % (Auto) 11.2 H, Eos % (Auto) [...] Patient should follow-up as an outpatient with program/music director if has not already done so Chronic [...] Full code Charges/Coding Visit Charges Inpatient E&M: 96666 Init Hosp L2 12/27/24 1452 <Electronically signed by Flakita Florentino DO> Cosigner Signature (if applicable): CC: Dr. Valeriano Choe MD; Dr. Flakita Florentino DO~ Signed [facility] Work Phone: 1(509) 795-296806-06-2025 Discharge summary Author Marino Holguin [facility] Note Date/Time December 27, 2024 2:20p m [facility] Medical Records Department [address] [place] [address] Emergency Department Summary 12/27/24 MR#: [id number] Acct: [id number] Name: NAZARIO HUTTON Rep #:[id number] : 1950 74 From: Marino Holguin MD PCP: Dr. Valeriano Choe MD Status:REG ER Location: ED HPI History [...] Prior similar symptoms: Yes Recent Illness/Hospitalization: [facility] Medical History High serum parathyroid hormone (PTH) Heart murmur Elevated alkaline phosphatase level Elevated PSA Diverticulosis AVM (arteriovenous malformation) of colon Vitamin D deficiency Gout Alcohol abuse Essential hypertension Chest pain Anxiety Depression Myocardial infarct Chest pain Acute blood loss anemia Bloody diarrhea Coronary artery disease Atherosclerotic heart disease of teller coronary artery without angina pectoris ST elevation PA (STEMI) (~11/29/21) Hyperlipidemia Hypertension Home Medications ?Medication [...] disease Hypertension Myocardial infarction age 53 following PA. Surgical History H/O colonoscopy S/P cataract extraction [...] (Auto) 67.1 Lymph % (Auto) 9.8 L Johnston % (Auto) 11.2 H Eos % (Auto) [...] is 82 with a first-degree AV block. [place] to the left. OR interval is 270 ms. QRS duration is [...] no mention of angioedema postmarketing reports through [employer]. Will review othersources. Of note patient was [...] prior records and laboratoryresults.), Discussing w/Patient &/or Family/Optical Glass Sawyer (Patient was informed that he needs to [...] due to drugs, Eosinophilia, Lymphopenia Disposition Disposition: [facility] What to do if you have Problems For any increased pain, shortness of breath, bleeding, nausea or vomiting, chestpain, or any unexpected problems, contact your Primary Care Provider. Call [facility] ([phone]) or report to the closest Emergency Room. Call 911 if necessary. 12/27/24 1420 <Electronically signed by Marino Holguin MD> Cosigner Signature (if applicable): CC: Dr. Valeriano Choe MD ~ Signed [facility] Work Phone: 1(128) 967-330306-06-2025 Evaluation note* Diagnosis Onset Date Resolution Status [...] 2025 10:49am Diverticula of colon acute Augu st 2024 1:58pm Cirrhosis, alcoholic chronic Augu 2024 1:58pm [facility] Work Phone: 1(115) 158-971206-06-2025 Evaluation note* Diagnosis Onset Date Resolution Status [...] 2025 10:49am Diverticula of colon acute Augu st 2024 1:58pm Cirrhosis, alcoholic chronic Augu st 2024 1:58pm Dysphagia acute March 20 025 5:44am Cirrhosis, alcoholic chronic Augu st 2024 5:44am [facility] Work Phone: 1(592) 117-323506-06-2025 History and physical note [facility] Medical Records Department [address] [address] H&P Exam - Hospitalist 12/27/24 1411 MR#: [id number] Acct: [id number] Name: NAZARIO HUTTON Rep #:[id number] : 1950 74 From: Flakita Florentino DO PCP: Dr. Valeriano Choe MD Status:REG ER Location: ED HPI - General General Date of Admission: 12/27/24 Date of Service: 12/27/24 Chief Complaint: Tongue and lip swelling HPI Narrative NAZARIO HUTTON, is a 74 M who presented to the emergency department at [facility] on 12/27/2024 with tongue and lip [...] maintained on Solu-Medrol, H2 and H1 blockers. [facility] Medical History High serum parathyroid hormone (PTH) Heart murmur Elevated alkaline phosphatase level Elevated PSA Diverticulosis AVM (arteriovenous malformation) of colon Vitamin D deficiency Gout Alcohol abuse Essential hypertension Chest pain Anxiety Depression Myocardial infarct Chest pain Acute blood loss anemia Bloody diarrhea Coronary artery disease Atherosclerotic heart disease of teller coronary artery without angina pectoris ST elevation PA (STEMI) (~11/29/21) Hyperlipidemia Hypertension Home Medications ?Medication [...] disease Hypertension Myocardial infarction age 53 following PA. Surgical History H/O colonoscopy S/P cataract extraction [...] (Auto) 67.1, Lymph % (Auto) 9.8 L, Johnston % (Auto) 11.2 H, Eos % (Auto) [...] Patient should follow-up as an outpatient with program/music director if has not already done so Chronic [...] Full code Charges/Coding Visit Charges Inpatient E&M: 75614 Init Hosp L2 12/27/24 1452 Cosigner Signature (if applicable): CC: Dr. Valeriano Choe MD; Dr. Flakita Florentino, DO~ Signed [facility]06-06-2025 Radiology Diagnostic study note [facility] Imaging Services [address] [place], [place] [address] Chest 1 View (Portable) MR#: [id number] Acct: [id number] Name: NAZARIO HUTTON Rep #: [id number] : 1950 M 74 From: Hugh Berg MD PCP: Dr. Valeriano Choe MD Status: REG ER Study:Chest 1 View (Portable) Date of Exam: 12/27/24 Exam# [id number] Ordering Dr: Jake Holguin MD PROCEDURE: CHEST [...] Bilateral lower lung airspace disease is seen, nzfv-eytrlqj-tpdi-right. Differential diagnosis includes atelectasis and pneumonitis. No evidence of pulmonary edema. The cardiomediastinal silhouette is within the normal range. No acute osseous change is evident. Reading Location: [address] CC: Dr. Valeriano Choe MD; Dr. Marino Holguin MD ~ Dependency Case Manager: Signed [facility]06-06-2025 Discharge summary [facility] Medical Records Department [address] [place] [address] Emergency Department Summary 12/27/24 MR#: [id number] Acct: [id number] Name: NAZARIO HUTTON Rep #:[id number] : 1950 74 From: Marino Holguin MD PCP: Dr. Valeriano Choe MD Status:REG ER Location: ED HPI History [...] Coronary artery disease Atherosclerotic heart disease of teller coronary artery without angina pectoris ST elevation PA (STEMI) (~11/29/21) Hyperlipidemia Hypertension Home Medications ?Medication [...] disease Hypertension Myocardial infarction age 53 following PA. Surgical History H/O colonoscopy S/P cataract extraction [...] (Auto) 67.1 Lymph % (Auto) 9.8 L [place] % (Auto) 11.2 H Eos % (Auto) [...] is 82 with a first-degree AV block. [place] to the left. OR interval is 270 ms. QRS duration is [...] no mention of angioedema postmarketing reports through [employer]. Will review othersources. Of note patient was [...] prior records and laboratoryresults.), Discussing w/Patient &/or Family/Optical Glass Sawyer (Patient was informed that he needs to [...] Eosinophilia, Lymphopenia Disposition Disposition: Acute Care Hospital [facility] What to do if you have Problems For any increased pain, shortness of breath, bleeding, nausea or vomiting, chestpain, or any unexpected problems, contact your Primary Care Provider. Call [facility] ([phone]) or report tothe closest Emergency Room. Call 911 if necessary. 12/27/24 1420 Cosigner Signature (if applicable): CC: Dr. Valeriano Choe MD ~ Signed [facility]06-06-2025 Discharge summary Author Marino [facility] Note Date/Time December 27, 2024 2:20p m [facility] Medical Records Department [address] [facility] [place] [address] Emergency Department Summary 12/27/24 MR#: [id number] Acct: [id number] Name: NAZARIO HUTTON Rep #:[id number] : 1950 74 From: Marino Holguin MD PCP: Dr. Valeriano Choe MD Status:REG ER Location: ED HPI History [...] Coronary artery disease Atherosclerotic heart disease of teller coronary artery without angina pectoris ST elevation PA (STEMI) (~11/29/21) Hyperlipidemia Hypertension Home Medications ?Medication [...] disease Hypertension Myocardial infarction age 53 following PA. Surgical History H/O colonoscopy S/P cataract extraction [...] (Auto) 67.1 Lymph % (Auto) 9.8 L [place] % (Auto) 11.2 H Eos % (Auto) [...] is 82 with a first-degree AV block. [place] to the left. OR interval is 270 ms. QRS duration is [...] no mention of angioedema postmarketing reports through [employer]. Will review othersources. Of note patient was [...] prior records and laboratoryresults.), Discussing w/Patient &/or Family/Optical Glass Sawyer (Patient was informed that he needs to [...] drugs, Eosinophilia, Lymphopenia Disposition Disposition: Acute Care [facility] What to do if you have Problems For any increased pain, shortness of breath, bleeding, nausea or vomiting, chestpain, or any unexpected problems, contact your Primary Care Provider. Call [facility] ([phone]) or report to the closest Emergency Room. Call 911 if necessary. 12/27/24 1420 <Electronically signed by Marino Holguin MD> Cosigner Signature (if applicable): CC: Dr. Valeriano Choe MD ~ Signed [facility] Work Phone: 1(333) 731-944106-05-2025 NoteHNO ID: [id number] Author: LUPILLO GOEL LPN Service: ? Author Type: LICENSED NURSE Type: Progress Notes Filed: 12/26/2024 07:56 Note Text: Scan on 12/26/2024 7:26 AM by ProviderBing PA-C: Consultation - Cardiology [facility]06-05-2025 History of Present illness Narrative* Lupillo Goel LPN - 12/26/2024 7:56 AM EDT Scan on 12/26/2024 7:26 AM by ProviderBing PA-C: [facility]ation - [facility] History of Present illness Narrative* Patria Butler Jr., MD - 12/23/2024 1:58 PM EDT [...] Rheum workup unremarkable and per patient, Dr. Stallings will continue to monitor. No osteolytic lesions. [...] due to lower GI bleed from diverticulosis) 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 03/15/2021 Valvular heart disease 05/18/2023 Echo [...] and agrees with plan as above. Patria Butler MD I spent a total of 30+ minutes on the date of the service which included preparing to see the patient, siut-ad-qmoc patient care, completing clinical documentation, obtaining and/or reviewing separately obtained history, performing a medically appropriate examination, counseling and educating the pa tient/family/caregiver, ordering medications, tests, or procedures, and communicating results to the patient/family/caregiver. PDMP website checked and validated. All prescriptions have been APPROPRIATELY filled. No suspiciousactivity was identified. 12/23/2024 by Patria Butler MD documented in this encounterPromedica Bay [facility]04-25-2025 Telephone encounter Note * Telephone Encounter - Flakita Pastor MA - 11/15/2024 2:33 PM EDT Additional message left for pt to call back. Flakita Pastor MA [facility]04-25-2025 Miscellaneous Notes* Telephone Encounter - Flakita Pastor MA - 11/15/2024 2:33 PM EDT Additional message left for pt to call back. Flakita Pastor MA * Telephone Encounter - Nahid Turner MA - 11/08/2024 9:10 AM EDT Called and left message on patients voicemail to return call to the office and ask to speak with a FM triage nurse. Nahid Turner MA * Telephone Encounter - Rupal Coe MA - 11/07/2024 10:19 AM EDT Left message for patient to return call to office Rupal Coe MA * Telephone Encounter - Ni Sauceda APRN.CNP - 11/07/2024 8:48 AM EDT Please let patient know his AAA screening is negative for aneurysm. documented in this encounterPromedica Bay Park Hospital04-22-2025 NoteGrand [facility]04-22-2025 History of Present illness Narrative* Ganesh White MA - 11/12/2024 4:24 PM EDT Scan on 11/05/2024 3:43 PM by ProviderBing PA-C: Chemistry Scan on 11/05/2024 5:16 PM by Bing Salmeron PA-C: Chemistry Ganesh White MA * Flakita Pastor MA - 11/05/2024 3:50 PM EDT Labs resulted at [facility]. View External Labs - Hematology [ID [id number]] documented in this encounterPromedica Bay Park Hospital04-22-2025 NoteHNO ID: [id number] Author: LUPILLO GOEL LPN Service: ? Author Type: LICENSED NURSE Type: Progress Notes Filed: 11/12/2024 07:16 Note Text: Scan on 11/11/2024 4:10 PM by Bing Salmeron PA-C: Consultation - [facility]04-22-2025 History of Present illness Narrative* Lupillo Goel LPN - 11/12/2024 7:16 AM EDT Scan on 11/11/2024 4:10 PM by Bing Salmeron PA-C: Consultation - documented in this encounterPromedica Bay Park Hospital04-18-2025 Telephone encounter Note * Telephone Encounter - Nahid Turner MA - 11/08/2024 9:10 AM EDT Called and left message on patients voicemail to return call to the office and ask to speak with a triage nurse. Nahid Turner MA [facility]04-17-2025 Telephone encounter Note* Telephone Encounter - Rupal Coe MA - 11/07/2024 10:19 AM EDT Left message for patient to return call to office Rupal Coe MA [facility]04-17-2025 Telephone encounter Note* Telephone Encounter - Ni Sauceda APRN.CNP - 11/07/2024 8:48 AM EDT Please let patient know his AAA screening is negative for aneurysm. [facility]04-16-20[facility] History of Present illness Narrative* Bhavani [...] PATIENT PRESENTS WITH AN IMPLANTABLE OR ATTACHED VETERINARY MANAGER: No RADIOLOGY DEPARTMENT: Ultrasound PERIPHERAL IV DATA: Not applicable SIGNED BY: Bhavani Liu RDMS RVT November 06, 2024 4:44 PM documented in this encounterPromedica Bay Park Hospital04-16-2025 NoteGrand [facility]04-15-2025 NoteHNO ID: [id number] Author: FLAKITA PASTOR MA Service: ? Author Type: Copyright Manager Type: Progress Notes Filed: 11/12/2024 16:25 Note Text: Labs resulted at [facility]. View External Labs - Hematology [ID [id number]][facility] 11-05-2024 Evaluation note* Diagnosis Onset Date Resolution Status Admit Date Atherosclerotic heart diseas e of teller coronary artery without angina pectoris acute November 05, 2024 12:58pm Essential hypertension acute Ap ril 2024 12:58pm Hyperlipidemia acute October 12:58pm Acute respiratory failure resolved December 27, 2024 1:58pm Angioedema resolved December 27, 2024 1:58pm Eosinophilia resolved December 27 1:58pm Hypotension due to drugs resolved December 27, 2024 1:58pm Lymphopenia resolved December 27 1:58pm Monocytosis resolved December 27 1:58pm [facility] Work Phone: 1(438) 866-746904-15-2025 Evaluation note* Diagnosis Onset Date Resolution Status Admit Date Atherosclerotic heart diseas e of teller coronary artery without angina pectoris acute November [...] (BMI 25.0-29.9) acute January 23, 2025 10:37pm [facility] Work Phone: 1(954) 545-639304-15-2025 Evaluation note* Diagnosis Onset Date Resolution Status Admit Date Atherosclerotic heart diseas e of teller coronary artery without angina pectoris acute November [...] bleed acu te January 29, 2025 10:49am [facility] Work Phone: 1(251) 886-195804-15-2025 Evaluation note* Diagnosis Onset Date Resolution Status Admit Date Atherosclerotic heart diseas e of teller coronary artery without angina pectoris acute November [...] bleed res olved January 29, 2025 10:49am [facility] Work Phone: 1(647) 915-802904-15-2025 Evaluation note* Diagnosis Onset Date Resolution Status Admit Date Atherosclerotic heart diseas e of teller coronary artery without angina pectoris acute November [...] 2025 10:49am Diverticula of colon acute Augu st 2024 1:58pm Cirrhosis, alcoholic chronic Augu st 2024 1:58pm [facility] Work Phone: 1(125) 435-704004-11-2025 Instructions* Patient Instructions* Ni Sauceda APRN.CNP - 11/01/2024 11:08 AM EDT Vaccinations needed-DTaP, Shingrix, Hep A, RSV, Hep B documented in this encounterPromedica Bay Park Hospital04-11-2025 NoteGrand Lake [facility]04-11-2025 History of Present illness Narrative* Ni Sauceda APRN.CNP - 11/01/2024 10:54 AM EDT Chief Complaint [...] lipid rich plaque 12/06/[address] Snyder cardio [place] Diverticulosis 09/05/2022 Elevated alkaline phosphatase level 09/03/2017 [...] due to lower GI bleed from diverticulosis) 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 03/15/2021 Valvular heart disease 05/18/2023 Echo [...] Lymph 1.00 - 4.00 k/uL 0.59 (L) Johnston% % 10.9 Abs Johnston <0.87 k/uL 0.72 Eosin% % 7.0 Abs [...] Negative Ketones, Urine Negative Trace ! Specific [place], Ur 1.005 - 1.030 1.019 Hemoglobin/Blood,Ur Negative [...] 571.2, ICD10: K70.30 -Follows with Hepatology at [facility] 3. Advance directive discussed with patient - ICD9: V65.49, ICD10: Z71.89 - ADVANCE CARE PLAN DISCUSSION 4. Valvular heart disease - ICD9: 424.90, ICD10: I38 -Follows with cardiology at [place] and [facility] 5. Lumbosacral radiculopathy at L5 - ICD9: [...] ICD10: I25.10, I25.83 -Follows with cardiology at [place] and [facility] 8. Low vitamin D level - ICD9: [...] - US SCREENING FOR AAA Ni Sauceda APRN.PATHOLOGY TECH documented in this encounterPromedica Bay Park Hospital04-08-2025 Progress note* Result Encounter Note - Stephanie Stallings DO - 10/29/2024 5:16 PM EDT Can let him know the bone x-ray showed only signs of degenerative/arthritis with no suspicious lesions. Follow-up as scheduled. [facility] Work Phone: 1(363) 291-777104-08-2025 Miscellaneous Notes* Result Encounter Note - Stephanie Stallings DO - 10/29/2024 5:16 PM EDT Can let him know the bone x-ray showed only signs of degenerative/arthritis with no suspicious lesions. Follow-up as scheduled. documented in this encounterPromedica Bay Park Hospital04-02-2025 History of Present illness Narrative* Edith Smith RT(R) - 10/23/2024 2:10 PM EDT Radiology [...] PATIENT PRESENTS WITH AN IMPLANTABLE OR ATTACHED VETERINARY MANAGER: No RADIOLOGY DEPARTMENT: General X-ray: Exam(s) Completed: Bone Survey PERIPHERAL IV DATA: Not applicable SIGNED BY: RT Osman(R) October 23, 2024 2:49 PM documented in this encounterPromedica Bay Park Hospital04-02-2025 NoteGrand [facility]04-02-2025 NoteGrand [facility]04-02-2025 History of Present illness Narrative* Stephanie Stallings DO - 10/23/2024 1:47 PM EDT Hematologic problem(s): 1) Monoclonal gammopathy. HPI: The patient is a 73 yo male with PMH as outlined below. CAD--PA PCI 4 stents 2021. 07/2022--Lower GI bleed. [...] due to lower GI bleed from diverticulosis) 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 03/15/2021 Valvular heart disease 05/18/2023 Echo [...] the patient (cannot find EMG report in [facility] electronic record), tgtw-og-jjdx patient care, completing clinical documentation, obtaining and/or reviewing separately obtained history, counseling and educating the p atient/family/caregiver, ordering medications, tests, or procedures, communicating with other HCPs (not separately reported), and communicating results to the patient/family/caregiver. Stephanie Stallings DO documented in this encounterPromedica Bay Park Hospital04-02-2025 NoteHNO ID: [id number] Author: GANESH WHITE MA Service: ? Author Type: Copyright Manager Type: Progress Notes Filed: 10/23/2024 11:25 Note Text: Scan on 10/21/2024 3:42 PM by ProviderBing PA-C: Miscellaneous Lab Ganesh White [facility]04-02-2025 History of Present illness Narrative* Ganesh White MA - 10/23/2024 11:25 AM EDT Scan on 10/21/2024 3:42 PM by ProviderBing PA-C: Miscellaneous Lab Ganesh White MA documented in this encounterPromedica Bay Park Hospital03-11-2025 Telephone encounter Note * Telephone Encounter - Jagruti Reich - 10/01/2024 1:25 PM EDT Relayed message to patient. Lab and office visit scheduled with patient. Patient aware to pear picker 24 hr urine container prior to 10/21 when he comes in for lab work. He willbring urine to that appt. [facility] Work Phone: 1(955) 690-625503-11-2025 Miscellaneous Notes* Telephone Encounter - Jagruti Reich - 10/01/2024 1:25 PM EDT Relayed message to patient. Lab and office visit scheduled with patient. Patient aware to pear picker 24 hr urine container prior to [...] Leahy LPN * Telephone Encounter - Stephanie Stallings DO - 09/27/2024 5:33 PM EST Can let him know the lab work revealed a very low level monoclonal protein which I think will be ofno clinical consequence but does require further workup. Needs ionized calcium and 24-hour urine M spike then office visit with me. Stephanie Stallings DO documented in this encounterPromedica Bay Park Hospital03-11-2025 Telephone encounter Note * Telephone Encounter - Tayelr Leahy LPN - 10/01/2024 8:37 AM EDT Second message left for patient to contact office. Tayler Leahy LPN [facility]03-10-2025 Telephone encounter Note* Telephone Encounter - Tayler Leahy LPN - 09/30/2024 8:58 AM EDT Message left for patient to contact office. Tayler Leahy LPN [facility]03-07-2025 Telephone encounter Note* Telephone Encounter - Stephanie Stallings DO - 09/27/2024 5:33 PM EST Can let him know the lab work revealed a very low level monoclonal protein which I think will be ofno clinical consequence but does require further workup. Needs ionized calcium and 24-hour urine M spike then office visit with me. Stephanie Stallings DO [facility]03-05-2025 History of Present illness Narrative* Stephanie Stallings DO - 09/25/2024 2:00 PM EST Patient referred by Dr. 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 HPI: The patient is a 73 yo male with PMH as outlined below. CAD--PA PCI 4 stents 2021. 07/2022--Lower GI bleed. [...] due to lower GI bleed from diverticulosis) 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 03/15/2021 Valvular heart disease 05/18/2023 Echo [...] 1 tablet by mouth once daily. Per Baldodio atorvastatin (LIPITOR) 80 mg tablet TAKE 1 [...] which included preparing to see the patient, mvld-oq-gvon patient care, completing clinical documentation, obtaining and/or reviewing separately obtained history, counseling and educating the patient/family/caregiver, ordering medications, rick ts, or procedures, communicating with other HCPs (not separately reported), and communicating results to the patient/family/caregiver. Stephanie Stallings DO documented in this encounterPromedica Bay Park Hospital03-05-2025 NoteGrand [facility]03-04-2025 NoteGrand [facility]03-04-2025 History of Present illness Narrative* Lupillo Goel LPN - 09/24/2024 6:59 AM EST Scan on 09/23/2024 4:55 PM by ProviderBing PA-C: Consultation - Scan on 09/23/2024 10:57 PM by ProviderBing PA-C: CT Scan documented in this encounterPromedica Bay Park Hospital03-03-2025 Radiology Diagnostic study note [facility] Services [address], [place] [id number] Abdomen Single View MR#: [id number] Acct: [id number] Name: NAZARIO HUTTON Rep #: [id number] : 1950 M 73 From: Alejandrina Garcia DO PCP: Dr. Valeriano Choe MD Status: REG CLI Study:Abdomen Single View Date of Exam: 09/23/24 Exam# [id number] Ordering Dr: Irma Barron MD PROCEDURE: ABDOMEN [...] stones. Reading Location: [facility] CC: Dr. Valeriano Choe MD; Dr. Geovani Barron MD ~ Dependency Case Manager: Signed [facility]02-27-2025 Evaluation note* Diagnosis Onset Date Resolution Status Admit Date Kidney stone on left side acute September 19, 2024 1:55pm Cirrhosis, alcoholic chronic Febr 2024 1:55pm Hx of lower gastrointestinal bleeding chronic September 19 025 1:55pm [facility] Work Phone: 1(964) 336-919802-27-2025 Evaluation note* Diagnosis Onset Date Resolution Status Admit Date Kidney stone on left side acute September 19, 2024 1:55pm Cirrhosis, alcoholic chronic Febr 2024 1:55pm Hx of lower gastrointestinal bleeding chronic September 19 025 1:55pm Atherosclerotic heart diseas e of teller coronary artery without angina pectoris acute November 05, 2024 12:58pm Essential hypertension acute Ap ril 2024 12:58pm Hyperlipidemia acute October 12:58pm [facility] Work Phone: 1(381) 319-898102-27-2025 Evaluation note* Diagnosis Onset Date Resolution Status Admit Date Kidney stone on left side acute September 19, 2024 1:55pm Cirrhosis, alcoholic chronic Febr 2024 1:55pm Hx of lower gastrointestinal bleeding chronic September 19 025 1:55pm Atherosclerotic heart diseas e of teller coronary artery without angina pectoris acute November 05, 2024 12:58pm Essential hypertension acute Ap ril 2024 12:58pm Hyperlipidemia acute October 12:58pm Acute respiratory failure acute December 27, 2024 1:58pm Angioedema acute December 27, 2024 1:58pm Eosinophilia acute December 27 1:58pm Hypotension due to drugs acute December 27, 2024 1:58pm Lymphopenia acute December 27 1:58pm Monocytosis acute December 27 1:58pm [facility] Work Phone: 1(783) 934-525002-26-2025 NoteGrand [facility]02-26-2025 History of Present illness Narrative* Ganesh White MA - 09/18/2024 7:58 AM EST Scan on 09/17/2024 4:35 AM by Bing Salmeron PA-C: Miscellaneous Lab Scan on 09/17/2024 9:16 AM by Bing Salmeron PA-C: Miscellaneous Lab Ganesh White MA documented in this encounterPromedica Bay Park Hospital02-25-2025 NoteHNO ID: [id number] Author: LUPILLO GOEL LPN Service: ? Author Type: LICENSED NURSE Type: Progress Notes Filed: 09/17/2024 07:00 Note Text: Scan on 09/17/2024 4:35 AM by ProviderBing PA-C: Miscellaneous Lab [facility]02-25-2025 History of Present illness Narrative* Lupillo Goel LPN - 09/17/2024 7:00 AM EST Scan on 09/17/2024 4:35 AM by Bing Salmeron PA-C: Miscellaneous Lab documented in this encounterPromedica Bay Park Hospital02-21-2025 NoteGrand [facility]02-21-2025 History of Present illness Narrative* Lupillo Goel LPN - 09/13/2024 7:27 AM EST Scan on 09/12/2024 5:13 PM by Bing Salmeron PA-C: Chemistry Scan on 09/12/2024 4:19 PM by Bing Salmeron PA-C: Chemistry Scan on 09/12/2024 3:26 PM by Bing Salmeron PA-C: Hematology documented in this encounterPromedica Bay Park Hospital02-15-2025 NoteHNO ID: [id number] Author: LUPILLO GOEL LPN Service: ? Author Type: LICENSED NURSE Type: Progress Notes Filed: 09/07/2024 10:31 Note Text: Scan on 09/06/2024 6:27 PM by Bing Salmeron PA-C: CT ScanGrand Lake Joint Township [facility] Hospital02-15-2025 History of Present illness Narrative* Lupillo Goel LPN - 09/07/2024 10:31 AM EST Scan on 09/06/2024 6:27 PM by Bing Salmeron PA-C: CT Scan documented in this encounterPromedica Bay Park Hospital02-11-2025 History of Present illness Narrative* Nyla Ferguson DO - 09/03/2024 3:10 PM EST Images from the original note were not included. Rheumatology Clinic New Patient Virtual Note Date of Service: 09/03/2024 Patient: Nazario Hutton Medical Record: [id number] Primary Care Physician: Valeriano Choe MD Last [facility] visit: [facility] Referring Provider: Patria Butler [address] [address] [address] Butler, Patria Solis Jr., MD for an opinion [...] went to neurology. He was referred to corporate specialist and was told that some nerve [...] due to lower GI bleed from diverticulosis) 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 03/15/2021 Valvular heart disease 05/18/2023 Echo [...] AI <0.2 Sm Antibody Negative Negative Ribosomal RESEARCH PROJECT MANAGER Ab <1.0 AI <0.2 Ribosomal RESEARCH PROJECT MANAGER Qualitative Negative Negative Chromatin Ab <1.0 AI <0.2 Chromatin Ab Qual Negative Negative SSA Antibody Qual Negative Negative Anti-SSA <1.0 AI <0.2 Anti-SSB <1.0 AI <0.2 RESEARCH PROJECT MANAGER Antibody QUAL Negative Negative Scleroderma Ab Qual [...] /HPF Latest Ref Rng & Units 04/13/2022 04/14/202304/04/2024 Vitamin D Vitamin D 25 Hydroxy 31.0 [...] can be see in blood cell dyscrasias. [facility] on 09/03/24 C3 COMPLEMENT C4 COMPLEMENT SEDIMENTATION RATE, WESTERGREN C-REACTIVE PROTEIN DNA ANTIBODY DS BLD COMPLETE BLOOD COUNT AND DIFFERENTIAL COMPREHENSIVE METABOLIC PANEL CONSULT TO RHEUM/IMMUN DISEASE No follow-ups on file. Nyla Ferguson DO Rheumatology 09/02/2024 I spent a total of 62 minutes on the date of the service which included preparing to see the patient, asno-fu-wfmy patient care, completing clinical documentation, obtaining and/or reviewing separately obtained history, performing a medically appropriate examination, counseling and educating the pat ient/family/caregiver, ordering medications, tests, or procedures, communicating with other HCPs (not separately reported), independently interpreting results (not separately reported), and communicating results to the patient/family/caregiver. documented in this encounterPromedica Bay Park Hospital02-11-2025 NoteGrand Lake [facility]02-11-2025 Telephone encounter Note* Telephone Encounter - Bhavani Austin LPN - 09/03/2024 7:52 AM EST ----- Message from Patria Butler MD sent at 09/02/2024 4:06 PM EST ----- Please let patient know that given the findings of his lab work thus far, I am concerned for a plasma cell disorder, and would like to arrange an evaluation by hematology. If he agrees, I will place consult. [facility]02-11-20[facility] Miscellaneous Notes* Telephone Encounter - Bhavani Austin LPN - 09/03/2024 7:52 AM EST ----- Message from Patria Butler MD sent at 09/02/2024 4:06 PM EST ----- Please let patient know that given the findings of his lab work thus far, I am concerned for a plasma cell disorder, and would like to arrange an evaluation by hematology. If he agrees, I will place consult. documented in this encounterPromedica Bay Park Hospital02-11-2025 Telephone encounter Note * Telephone Encounter - Bhavani Austin LPN - 09/03/2024 7:43 AM EST ----- Message from Patria Butler MD sent at 09/02/2024 4:06 PM EST ----- Please let patient know that given the findings of his lab work thus far, I am concerned for a plasma cell disorder, and would like to arrange an evaluation by hematology. If he agrees, I will place consult. [facility]02-11-2025 Miscellaneous Notes* Telephone Encounter - Bhavani Austin LPN - 09/03/2024 7:43 AM EST ----- Message from Patria Butler MD sent at 09/02/2024 4:06 PM EST ----- Please let patient know that given the findings of his lab work thus far, I am concerned for a plasma cell disorder, and would like to arrange an evaluation by hematology. If he agrees, I will place consult. 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 Patria Butler MD I spent a total of 30+ minutes on the date of the service which included preparing to see the patient, iwwx-ox-gann patient care, completing clinical documentation, obtaining and/or [...] Decision Making Level: 4 - Moderate * Randi Meng LPN - 08/30/2024 3:08 PM EST 08/29/2024 [...] 67 (Recommend sleep study) documented in this encounterPromedica Bay Park Hospital02-07-2025 NoteGrand Lake [facility]02-05-2025 NoteHNO ID: [id number] Author: LUPILLO GOEL LPN Service: ? Author Type: LICENSED NURSE Type: Progress Notes Filed: 08/28/2024 07:04 Note Text: Scan on 08/27/2024 4:55 PM by ProviderBing PA-C: Consultation - GUGrand Lake Joint [facility]02-05-2025 History of Present illness Narrative* Lupillo Gole LPN - 08/28/2024 7:04 AM EST Scan on 08/27/2024 4:55 PM by Bing Salmeron PAOndinaC: Consultation - documented in this encounterPromedica Bay Park Hospital01-27-2025 NoteGrand Lake [facility]01-27-2025 History of Present illness Narrative* Arun Acosta DO - 08/19/2024 1:44 PM EST Images from the original note were not included. Allergy and Immunology DATE OF SERVICE: 08/21/2024 PRIMARY CARE PHYSICIAN: Valeriano Choe MD REFERRING PROVIDER: Valeriano Choe Consultation requested for an allergy/immunology evaluation. 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 Arun Acosta DO Allergy and Clinical Immunology [facility] Medical Decision Making: Problems: Low: Acute, [...] and Sertraline to FLUoxetine. 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 Consult placed. - discussed [...] which included preparing to see the patient, heoz-mj-rkfl patient care, completing clinical documentation, performing a medically appropriate examination, counseling and educating the patient/family/caregiver and ordering medications, tests, or procedures. Valeriano Choe MD documented in this encounterPromedica Bay Park Hospital01-08-2025 NoteGrand Lake [facility]12-27-2024 Telephone encounter Note* Telephone Encounter [...] Needs 30 day supply to go to [employer] and 90 day supply to go to [facility]. Pineda Styles RN July 19, 2024 2:43 PM [facility]12-27-2024 Miscellaneous Notes* Telephone Encounter - Pineda [...] Needs 30 day supply to go to [facility] and 90 day supply to go to [employer]. Pineda Styles RN July 19, 2024 2:43 PM documented in this encounterPromedica Bay Park Hospital12-27-2024 NoteHNO ID: [id number] Author: LUPILLO GOEL LPN Service: ? Author Type: LICENSED NURSE Type: Progress Notes Filed: 07/19/2024 07:31 Note Text: Scan on 07/18/2024 4:24 PM by Provider, Bing, ELIZABETH: Consultation - [facility]Grand [facility] History of Present illness Narrative* Lupillo Goel LPN - 07/19/2024 7:31 AM EST Scan on 07/18/2024 4:24 PM by Bing Salmeron PA-C: Consultation - Emergency Medicine documented in this encounterPromedica Bay Park Hospital11-13-2024 Note* Addendum Note - Valeriano Choe MD - 06/05/2024 9:08 AM ESTAddended by: VALERIANO CHOE on: 06/05/2024 09:08 AM Modules accepted: Orders [facility]11-13-2024 Miscellaneous Notes* Addendum Note - Valeriano Choe MD - 06/05/2024 9:08 AM ESTAddended by: VALERIANO CHOE on: 06/05/2024 09:08 AM Modules accepted: Orders documented in this encounterPromedica Bay Park Hospital11-13-2024 NoteHNO ID: [id number] Author: LUPILLO GOEL LPN Service: ? Author Type: LICENSED NURSE Type: Progress Notes Filed: 06/05/2024 07:36 Note Text: Scan on 06/04/2024 2:56 PM by Bing Salmeron PA-C: Consultation - GI [facility]11-13-2024 History of Present illness Narrative* Lupillo Goel LPN - 06/05/2024 7:36 AM EST Scan on 06/04/2024 2:56 PM by Bing Salmeron PA-C: Consultation - GI documented in this encounterPromedica Bay Park Hospital11-07-2024 History of Present illness Narrative* Daphne Su MA - 05/30/2024 1:48 PM EST Scan on 05/30/2024 1:20 PM by Bing Salmeron PA-C: Consultation - Cardiology documented in this encounterPromedica Bay Park Hospital11-06-2024 Note* Addendum Note - Suzanna Dawson PA-C - 05/29/2024 1:34 PM ESTAddended by: SUZANNA BYERS on: 05/29/2024 01:34 PM Modules accepted: Level of Service [facility]11-06-2024 Miscellaneous Notes* Addendum Note - Suzanna Dawson PA-C - 05/29/2024 1:34 PM ESTAddended by: SUZANNA BYERS on: 05/29/2024 01:34 PM Modules accepted: Level of Service documented in this encounterPromedica Bay Park Hospital11-06-2024 History of Present illness Narrative* Suzanna [...] due to lower GI bleed from diverticulosis) 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 Notified of results. He verbalized understanding. Pt also mentions he has an appt on May [address] Barron and Jun [address] Blanco. Heron Enriquez LPN [facility]10-29-2024 Miscellaneous Notes* Telephone Encounter - Heron [...] Pastor MA * Telephone Encounter - Lupillo Goel LPN - 05/20/2024 9:10 AM EDT Left message for pt to contact office. Lupillo Goel LPN * Telephone Encounter - Suzanna Dawson PA-C - 05/20/2024 7:53 AM EDT Negative for hepatitis. documented in this encounterPromedica Bay Park Hospital10-29-2024 Telephone encounter Note * Telephone Encounter - Flakita Pastor MA - 05/21/2024 9:21 AM EDT Additional message left for pt to call back. Flakita Pastor MA [facility]10-28-2024 Telephone encounter Note* Telephone Encounter - Lupillo Goel LPN - 05/20/2024 9:51 AM EDT Pt did read My Chart Message. Will close this encounter. Lupillo Goel LPN [facility]10-28-2024 Miscellaneous Notes* Telephone Encounter - Lupillo Goel LPN - 05/20/2024 9:51 AM EDT Pt did read My Chart Message. Will close this encounter. Lupillo Goel LPN * Telephone Encounter - Ganesh White MA - 05/20/2024 9:41 AM EDT Left additional message for patient to contact office. Ganesh White MA * Telephone Encounter - Lupillo Goel LPN - 05/17/2024 8:53 AM EDT Left additional message for pt to contact office. Lupillo Goel LPN * Telephone Encounter - Lupillo Goel LPN - 05/16/2024 11:25 AM EDT Also sent pt a ms with phone numbers. Lupillo Goel LPN * Telephone Encounter - Lupillo Goel LPN - 05/15/2024 1:16 PM EDT Left message for pt to contact office for phone numbers. Dr Chacon [phone] Dr Barron [phone]. Please have pt contact them to schedule if he does not hear from their offices. All info has been faxed to Dr Chacon and Dr Barron as per below. Lupillo Goel LPN * Telephone Encounter - Suzanna Dawson [...] September per patient request. Pineda Styles RN * Telephone Encounter - Lupillo Goel LPN - 05/15/2024 9:18 AM EDT Left message for pt to contact office. 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 We need to get him in with a liver specialist. Does he wish to stay in [place] with kountze at [facility]. Or does he prefer to stay with [facility]? I also need to do a hepatitis panel on him. He had declined hep C screening in past but given this finding, I think we need to check this. Also did he ever see dr. Barron (urology) for his kidney cysts/lesion?? Suzanna Dawson PA-C * Telephone Encounter - Lupillo Goel LPN - 05/14/2024 2:45 PM EDT Received results of pt's US ordered by Suzanna done at [facility]. Lupillo Gole LPN Scan on 05/14/2024 2:31 PM by Provider, ELIZABETH Smart: Ultrasound documented in this encounterPromedica Bay Park Hospital10-28-2024 Telephone encounter Note * Telephone Encounter - Ganesh White MA - 05/20/2024 9:41 AM EDT Left additional message for patient to contact office. Ganesh White MA [facility]10-28-2024 Telephone encounter Note* Telephone Encounter - Lupillo Goel LPN - 05/20/2024 9:10 AM EDT Left message for pt to contact office. Lupillo Goel LPN [facility]10-28-2024 Telephone encounter Note* Telephone Encounter - Suzanna Dawson PA-C - 05/20/2024 7:53 AM EDT Negative for hepatitis. [facility]10-25-2024 Telephone encounter Note* Telephone Encounter - Lupillo Goel LPN - 05/17/2024 8:53 AM EDT Left additional message for pt to contact office. Lupillo Goel LPN [facility]10-24-2024 Telephone encounter Note* Telephone Encounter - Lupillo Goel LPN - 05/16/2024 11:25 AM EDT Also sent pt a [facility] with phone numbers. Lupillo Goel LPN [facility]10-23-2024 Telephone encounter Note* Telephone Encounter - Lupillo Goel LPN - 05/15/2024 1:16 PM EDT Left message for pt to contact office for phone numbers. Dr Chacon [phone] Dr Barron [phone]. Please have pt contact them to schedule if he does not hear from their offices. All info has been faxed to Dr Chacon and Dr Barron as per below. Lupillo Goel LPN [facility]10-23-2024 Telephone encounter Note* Telephone Encounter - Suzanna Dawson PA-C - 05/15/2024 12:46 PM EDT Consult placed. Please give patient phone numbers to schedule. [facility]10-23-2024 Telephone encounter Note* Telephone Encounter - [...] September per patient request. Pineda Styles RN [facility]10-23-2024 Telephone encounter Note* Telephone Encounter - Lupillo Goel LPN - 05/15/2024 9:18 AM EDT Left message for pt to contact office. 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 We need to get him in with a liver specialist. Does he wish to stay in [place] with kountze at [facility]. Or does he prefer to stay with [facility]? I also need to do a hepatitis panel on him. He had declined hep C screening in past but given this finding, I think we need to check this. Also did he ever see dr. Barron (urology) for his kidney cysts/lesion?? Suzanna Dawson PA-C [facility]10-22-2024 Telephone encounter Note* Telephone Encounter - Lupillo Goel LPN - 05/14/2024 2:45 PM EDT Received results of pt's US ordered by Suzanna done at [facility]. Lupillo Goel LPN Scan on 05/14/2024 2:31 PM by Provider, ELIZABETH Smart: Ultrasound [facility]10-21-2024 Telephone encounter Note* Telephone Encounter - Kirsten Gonzalez RN - 05/13/2024 3:14 PM EDT Patient calling with an order related question. Information provided. Kirsten Gonzalez RN [facility]10-21-2024 Miscellaneous Notes* Telephone Encounter - Kirsten Gonzalez RN - 05/13/2024 3:14 PM EDT Patient calling with an order related question. Information provided. Kirsten Gonzalez RN documented in this encounterPromedica Bay Park Hospital10-09-2024 Instructions* Patient Instructions* Suzanna Dawson PA-C - 05/01/2024 1:44 PM EDT Screening schedule The following prevention plan is recommended: Shingrix Vaccine(1 of 2) Never done DTaP,Tdap,Td Vaccine(2 - Td or Tdap) due on 03/04/2018 Advance Directive Discussion due on 07/24/2023 Influenza Vaccine(1) due on 03/24/2024 Covid-19 Vaccine( - season) due on 03/24/2024 WHAT YOU CAN [...] review all the medicines you take, even nvwg-ian-vahjbfr medicines. As you get older, the way [...] have certain medical conditions. 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 [...] place - ICD9: V49.89, ICD10: Z78.9 6. 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 16. Alcohol abuse - ICD9: 305.00, ICD10: F10.10 Advised to decrease Avoid binge Suzanna Dawson PA-C I spent a total of 45 minutes on the date of the service which included preparing to see the patient, yozp-ut-fpkt patient care, completing clinical documentation, obtaining and/or reviewing separately obtained history, performing a medically appropriate examination, counseling and educating the pat ient/family/caregiver, and ordering medications, tests, or procedures. documented in this encounterPromedica Bay Park Hospital10-09-2024 Telephone encounter Note * Telephone Encounter - Alexia Rob LPN - 05/01/2024 8:29 AM EDT Lisa with Dr. Vargas's office (cardiology) called for recent lipid lab work. Pt has an apt. Pt was identified with name and date of . FAX: [phone]. Done. Alexia Rob LPN [facility]10-09-2024 Miscellaneous Notes* Telephone Encounter - Alexia Rob LPN - 05/01/2024 8:29 AM EDT Lisa with Dr. Vargas's office (cardiology) called for recent lipid lab work. Pt has an apt. Pt was identified with name and date of . FAX: [phone]. Done. Alexia Rob LPN documented in this encounterPromedica Bay Park Hospital09-25-2024 History of Present illness Narrative* Ganesh White MA - 04/17/2024 6:44 PM EDT Scan on 04/15/2024 12:56 PM by Provider, ELIZABETH Smart: Consultation - Cardiology Ganesh White MA documented in this encounterPromedica Bay Park Hospital09-12-2024 History of Present illness Narrative* Ni Sauceda, SUNIL.PATHOLOGY TECH - 04/04/2024 11:48 AM EDT Chief Complaint Patient presents with: ER F/U HPI Nazario Hutton is a 73 year old male who presents here today for Above Complaints.. Patient presents for ER follow up. Patient seen in [facility] for angioedema. Losartan d/c'd by Dr. Choeafter notification of ER visit. Angioedema has resolved. [...] to lipid rich plaque Comment: seeing Dr. Snyder , cardio [place] 09/05/2022: Diverticulosis 09/03/2017: Elevated [...] to lower GI bleed from diverticulosis) 03/15/2021: 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 05/18/2023: Valvular heart disease Comment: Echo [...] - AMLODIPINE 10 MG TABLET Ni Sauceda APRN.PATHOLOGY TECH documented in this encounterPromedica Bay Park Hospital09-09-2024 Telephone encounter Note * Telephone Encounter - Pineda Styles RN - 04/01/2024 3:35 PM EDT Patient returns call and provider message below reviewed. Scheduled ER appt for 04/04/2024. Pineda Styles RN [facility]09-09-2024 Miscellaneous Notes* Telephone Encounter - Pineda [...] was in ER for allergic reaction. Dr. Choe message. Advise patient to stop the losartan. Though it is rare it can cause angio edema. Needs f/u in 3-5 days. Please assist patient for follow up with PCP/team. /Ganesh White MA documented in this encounterPromedica Bay Park Hospital09-09-2024 Telephone encounter Note * Telephone Encounter - Rupal Chinchilla MA - 04/01/2024 2:54 PM EDT Unable to reach patient. Left VM to return call to office. Please read below and advise & assist patient with scheduling ER F/U with PCP team. Rupal Chinchilla MA [facility]09-09-2024 Telephone encounter Note* Telephone Encounter - Ganesh White MA - 04/01/2024 2:28 PM EDT Patient was in ER for allergic reaction. Dr. Choe message. Advise patient to stop the losartan. Though it is rare it can cause angio edema. Needs f/u in 3-5 days. Please assist patient for follow up with PCP/team. /Ganesh White MA [facility]09-09-2024 History of Present illness Narrative* Ganesh White MA - 04/01/2024 2:27 PM EDT Left message for patient to contact office. Ganesh White MA * Valeriano Choe MD - 04/01/2024 1:48 PM EDT Advise patient to stop the losartan. Though it is rare it can cause angio edema. Needs f/u in 3-5 days. * Ganesh White MA - 04/01/2024 1:41 PM EDT Scan on 03/29/2024 4:41 PM by Provider, ELIZABETH Smart: Consultation - Emergency Medicine Ganesh White MA documented in this encounterPromedica Bay Park Hospital09-06-2024 History of Present illness Narrative* Jayda Villareal APRN.CNP - 03/29/2024 11:23 AM EDT Nazario Hutton is a 73 year old male who presents with a swollen tongue. Onset- when he awoke today. Denies difficulty breathing. No pain. Is able to swallow but has difficulty-sometimes has to spit saliva out. He is referred to ER for further evaluation and treatment. He is agreeable to this and will go to [place] ED. Offered ambulance transport-he refused. He appears stable to self-transport. Report sent via ER passport. Jayda Villareal APRN.PONCHO documented in this encounterPromedica Bay Park Hospital07-17-2024 Telephone encounter Note * Telephone Encounter - Bhavani Austin LPN - 02/07/2024 9:19 AM EDT Please assist pt in scheduling CTA. Please assist in scheduling a follow up with neuro ODALIS after scans. Bhavani Austin LPN [facility]07-17-2024 Miscellaneous Notes* Telephone Encounter - Bhavani Austin LPN - 02/07/2024 9:19 AM EDT Please assist pt in scheduling CTA. Please assist in scheduling a follow up with neuro ODALIS after scans. Bhavani Austin LPN * Addendum Note - Patria Butler Jr., MD - 02/07/2024 8:45 AM EDTAddended by: PATRIA BUTLER on: 02/07/2024 08:45 AM Modules accepted: Orders * Telephone Encounter - Patria Butler Jr., MD - 02/07/2024 8:43 AM EDT Please schedule pt with neuro ODALIS JOSE LUIS for follow up. I will also place order for vascular consult now. If no stenosis on CTA we can cancel. Patria Butler MD * Telephone Encounter - Sam Littlejohn RN - 02/06/2024 4:01 PM EDT Pt returned the call and will proceed with CTA head/neck with IV contrast as soon as possible. Please contact pt to set up appt as soon as order is placed. Pt aware it needs to be done as soon as possible. Pt has viewed some results on his [employer]. Pt has a lot of questions. Answered [...] 11:10 AM EDT ----- Message from Patria Butler Jr., MD sent at 02/06/2024 11:02 AM EDT ----- Please inform patient that the MRA did show possible severe narrowing of the L carotid artery. Radiology is recommending this be confirmed with CTA. If patient willing, and would recommend it be completed, I will place order for CTA to further evaluate. Please let me know. Thank you, Patria Butler MD documented in this encounterPromedica Bay Park Hospital07-17-2024 Note* Addendum Note - Patria Butler Jr., MD - 02/07/2024 8:45 AM EDTAddended by: PATRIA BUTLER on: 02/07/2024 08:45 AM Modules accepted: Orders [facility]07-17-2024 Telephone encounter Note* Telephone Encounter - Patria Butler Jr., MD - 02/07/2024 8:43 AM EDT Please schedule pt with neuro ODALIS JOSE LUIS for follow up. I will also place order for vascular consult now. If no stenosis on CTA we can cancel. Patria Butler MD [facility]07-16-2024 Telephone encounter Note* Telephone Encounter - [...] the carotid all had the same Impression. [facility]07-16-[facility] Telephone encounter Note* Telephone Encounter - Bhvaani Austin LPN - 02/06/2024 11:12 AM EDT TC to pt with no answer, left VM to return call. Bhavani Austin LPN [facility]07-16-2024 Telephone encounter Note* Telephone Encounter - Bhavani Austin LPN - 02/06/2024 11:10 AM EDT ----- Message from Patria Butler Jr., MD sent at 02/06/2024 11:02 AM EDT ----- Please inform patient that the MRA did show possible severe narrowing of the L carotid artery. Radiology is recommending this be confirmed with CTA. If patient willing, and would recommend it be completed, I will place order for CTA to further evaluate. Please let me know. Thank you, Patria Butler MD [facility]07-16-2024 History of Present illness Narrative* Samanta Collier, RT(R) - 02/06/2024 9:20 AM EDT Radiology [...] PATIENT PRESENTS WITH AN IMPLANTABLE OR ATTACHED VETERINARY MANAGER: No RADIOLOGY DEPARTMENT: MR; Exam(s) Completed: Head: Routine Brain Bieber of [place] MRA Neck: Carotids MRA, bilateral PERIPHERAL IV DATA: Not applicable SIGNED BY: RT Brandon(R) February 06, 2024 9:30 AM documented in this encounterPromedica Bay Park Hospital07-10-2024 History of Present illness Narrative* Lupillo Goel LPN - 01/31/2024 11:34 AM EDT Scan on 01/31/2024 10:24 AM by Provider, ELIZABETH Smart: Consultation - Cardiology documented in this encounterPromedica Bay Park Hospital06-26-2024 Telephone encounter Note * Telephone Encounter - Laly Bhandari OCCA - 01/17/2024 10:49 AM EDT Multiple attempts by phone and MC message to reach patient regarding abnormal lab results. Letter mailed to patients home address requesting return call to office. YASMEEN Childers [facility]06-26-2024 Miscellaneous Notes* Telephone Encounter - Laly Bhandari OCCA - 01/17/2024 10:49 AM EDT Multiple attempts by phone and MC message to reach patient regarding abnormal lab results. Letter mailed to patients home address requesting return call to office. YASMEEN Childers * Telephone Encounter - Ary Rob LPN - 01/16/2024 6:00 PM EDT Phone call placed, no answer brief message to contact a nurse. [facility] . Ary Rob LPN * Telephone Encounter - Bhavani Austin LPN - 01/12/2024 4:07 PM EDT TC to pt with no answer, left VM to return call. Bhavani Austin LPN * Telephone Encounter - Bhavani Austin LPN - 01/08/2024 4:17 PM EDT Attempted to call pt. Unable to reach him due to static on phone lines. Will try again. Bhavani Austin LPN * Telephone Encounter - hBavani Austin LPN - 01/08/2024 4:13 PM EDT ----- Message from Patria Butler Jr., MD sent at 01/08/2024 4:10 PM EDT ----- Pt with multiple abnormal labs including +GALLO with DNA Ab DA that could suggest autoimmune/inflammatory disorder, and thus, would like pt to see Rheum for evaluation. Also abnormal SPEP, and would like pt to see Heme. B6 also low and recommend pt start on B Vitamin supplement. Patria Butler MD documented in this encounterPromedica Bay Park Hospital06-25-2024 Telephone encounter Note * Telephone Encounter - Ary Rob LPN - 01/16/2024 6:00 PM EDT Phone call placed, no answer brief message to contact a nurse. [employer] [facility] . Ary Rob LPN [facility]06-21-2024 Telephone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 : 1950 71 From: Ahmet Chacon DO PCP: Dr. Valeriano Choe MD Status:ADM IN Location: [facility] [id number]- [id number] Subjective Subjective Patient did have a [...] (Auto) 69.9, Lymph % (Auto) 8.5 L, Johnston % (Auto) 11.9 H, Eos % (Auto) [...] elevated myocardial infarction): PLAN: Non-ST segment elevation PA treated with heparin over the weekend and [...] GI standpoint. Charges/Coding Visit Charges Inpatient E&M: 00520 Subs Hosp L3 09/07/221929 <Electronically signed by Ahmet Friend DO> Ahmet Friend DO Cosigner Signature (if applicable): CC: ~ Signed [facility] Work Phone: 1(553) 566-988202-15-[address] Crespo [facility] September 07, 2022 12:54pm Note Date/Time September 07, 2022 12:54pm [facility] Medical Records Department [address] [place] [address] Progress Note - Hospitalist 09/07/22 1251 MR#: [id number] Acct: [id number] Name: NAZARIO HUTTON Rep #:[id number] : 1950 71 From: Obdulio goyal MD PCP: Dr. Valeriano Choe MD Status:ADM IN Location: [place] [address] Reason for Visit Reason for Visit: Diagnoses [...] (Auto) 69.9, Lymph % (Auto) 8.5 L, Johnston % (Auto) 11.9 H, Eos % (Auto) [...] mild segmental systolic dysfunction. Records requested from [facility] * Appreciate cardiology's assistance, will restart Plavix by itself in about a week #Acute alcohol withdrawal * patient has a history of heavy alcohol use, and drinks 4-6 drinks daily. * alcohol withdrawal protocol with ativan. * on folic acid, thiamine and multivitamin. DVT: SCDs Charges/Coding Visit Charges Inpatient E&M: 71691 Subs Hosp L2 09/07/22 1254 <Electronically signed by Obdulio Crespo MD> Cosigner Signature (if applicable): CC: ~ Signed [facility] Work Phone: 1(625) 692-850002-15-[address] Cuevas [facility] September 07, 2022 8:04am Note Date/Time September 07, 2022 8:[address] [place] [address] Medical Records Department [address] [place] [address] Progress Note - Cardiology 09/07/22 0800 MR#: [id number] Acct: [id number] Name: NAZARIO HUTTON Rep #:[id number] : 1950 71 From: Lukas Cuevas MD PCP: Dr. Valeriano Choe MD Status:ADM IN Location: [place] [address] Subjective Subjective Patient seen and evaluated. Objective [...] (Auto) 69.9, Lymph % (Auto) 8.5 L, Johnston % (Auto) 11.9 H, Eos % (Auto) [...] (Auto) 69.9, Lymph % (Auto) 8.5 L, Johnston % (Auto) 11.9 H, Eos % (Auto) [...] Cosigner Signature (if applicable): CC: ~ Signed [facility] Work Phone: [phone]) [phone] Progress note Author Ahmet Friend [facility] September 06, 2022 7:35pm Note Date/Time September 06, 2022 7:35pm [facility] Medical Records Department [address] [place] [address] Progress Note 09/06/221932 MR#: [id number] Acct: [id number] Name: NAZARIO HUTTON Rep #:[id number] : 1950 71 From: Ahmet Friend DO PCP: Dr. Valeriano Choe MD Status:ADM IN Location: [place] [address] Subjective Subjective Patient underwent cardiac catheterization today. [...] % (Auto) 69.2, Lymph % (Auto) 10.6L, Johnston % (Auto) 10.7 H, Eos % (Auto) [...] elevated myocardial infarction): PLAN: Non-ST segment elevation PA treated with heparin over the weekend and [...] discharged tomorrow. Charges/Coding Visit Charges Inpatient E&M: 08436 Subs Hosp L3 09/06/221934 <Electronically signed by Ahmet Friend DO> Ahmet Friend DO Cosigner Signature (if applicable): CC: ~ Signed [facility] Work Phone: 1(594) 309-193402-14-[address] Cueavs [facility] September 06, 2022 5:44pm Note Date/Time September 04, 2022 6:46pm [facility] Medical Records Department [address] [place] [address] Progress Note - Cardiology 09/04/22 1845 MR#: [id number] Acct: [id number] Name: NAZARIO HUTTON Rep #:[id number] : 1950 71 From: Lukas Cuevas MD PCP: Dr. Valeriano Choe MD Status:ADM IN Location: [place] [address] Subjective Subjective Patient seen and evaluated. Events [...] 70.3 H, Lymph % (Auto) 12.1 L, Johnston % (Auto) 11.5 H, Eos % (Auto) [...] 70.3 H, Lymph % (Auto) 12.1 L, Johnston % (Auto) 11.5 H, Eos % (Auto) [...] hesitate to call if any issues arise. 09/06/221743 <Electronically signed by Lukas Cuevas MD> Cosigner Signature (if applicable): CC: ~ Signed [facility] Work Phone: 1([phone]) 326-346602-14-[address] Crespo [facility] September 06, 2022 5:01pm Note Date/Time September 06, 2022 5:01pm [facility] Medical Records Department [address] [place] [address] Progress Note - Hospitalist 09/06/22 1656 MR#: [id number] Acct: [id number] Name: NAZARIO HUTTON Rep #:[id number] : 1950 71 From: Obdulio goyal MD PCP: Dr. Valeriano Choe MD Status:ADM IN Location: [place] [address]- 1 Reason for Visit Reason for Visit: [...] % (Auto) 69.2, Lymph % (Auto) 10.6L, Johnston % (Auto) 10.7 H, Eos % (Auto) [...] mild segmental systolic dysfunction. Records requested from [facility] * cardiology on board #Acute alcohol withdrawal * patient has a history of heavy alcohol use, and drinks 4-6 drinks daily. * alcohol withdrawal protocol with ativan. * on folic acid, thiamine and multivite. DVT: SCDs Charges/Coding Visit Charges Inpatient E&M: 30091 Subs Hosp L2 09/06/22 1701 <Electronically signed by Obdulio Crespo MD> Cosigner Signature (if applicable): CC: ~ Signed [facility] Work Phone: 1(466) 954-233402-14-[address] Cuevas [facility] September 06, 2022 8:50am Note Date/Time September 06, 2022 8:50am [facility] Medical Records Department [address] [place] [address] Progress Note - Cardiology 09/06/22 0847 MR#: [id number] Acct: [id number] Name: NAZARIO HUTTON Rep #:[id number] : 1950 71 From: Lukas Cuevas MD PCP: Dr. Valeriano Choe MD Status:ADM IN Location: [place] [address] Subjective Subjective Patient seen and evaluated. Patient [...] % (Auto) 69.2, Lymph % (Auto) 10.6L, Johnston % (Auto) 10.7 H, Eos % (Auto) [...] (Auto) 69.2, Lymph % (Auto) 10.6 L, Johnston % (Auto) 10.7 H, Eos % (Auto) [...] Cosigner Signature (if applicable): CC: ~ Signed [facility] Work Phone: 1(416) 225-463302-13-2023 Progress note Author Ahmet Chacon [facility] September 05, 2022 5:31pm Note Date/Time September 05, 2022 5:23pm [facility] Medical Records Department [address] [place] [address] [place] [address] Progress Note 09/05/22 1722 MR#: [id number] Acct: [id number] Name: NAZARIO HUTTON Rep #:[id number] : 1950 71 From: Ahmet Chacon DO PCP: Dr. Valeriano Choe MD Status:ADM IN Location: [place] [address] Subjective Subjective Patient underwent to colonoscopy this [...] elevated myocardial infarction): PLAN: Non-ST segment elevation PA treated with heparin over the weekend and [...] liquid diet. Charges/Coding Visit Charges Inpatient E&M: 70323 Subs Hosp L3 09/05/22 1731 <Electronically signed by Ahmet Friend DO> Ahmet Friend DO Cosigner Signature (if applicable): CC: ~ Signed [facility] Work Phone: 1(310) 907-685302-13-[address] Crespo [facility] September 05, 2022 4:23pm Note Date/Time September 05, 2022 4:23pm [facility] Medical Records Department [address] [place] [address] Progress Note - Hospitalist 09/05/22 1618 MR#: [id number] Acct: [id number] Name: NAZARIO HUTTON Rep #:[id number] : 1950 71 From: Obdulio goyal MD PCP: Dr. Valeriano Choe MD Status:ADM IN Location: [place] [address] Reason for Visit Reason for Visit: Diagnoses [...] mild segmental systolic dysfunction. Records requested from [facility] * cardiology on board #Acute alcohol withdrawal * patient has a history of heavy alcohol use, and drinks 4-6 drinks daily. * alcohol withdrawal protocol with ativan. * on folic acid, thiamine and multivite. DVT: SCDs Charges/Coding Visit Charges Inpatient E&M: 35491 Subs Hosp L2 09/05/22 1623 <Electronically signed by Obdulio Crespo MD> Cosigner Signature (if applicable): CC: ~ Signed [facility] Work Phone: 1(258) 402-955402-13-2023 History of Present illness Narrative* Ganesh White MA - 09/05/2022 2:31 PM EST Scan on 09/04/2022 5:29 PM by External Provider: EGD Scan on 09/04/2022 5:41 PM by External Provider: Colonoscopy Scan on 09/04/2022 5:42 PM by External Provider: Colonoscopy Please review. Ganesh White MA documented [facility] History of Present illness Narrative* Ganesh White MA - 09/05/2022 2:29 PM EST Scan on 09/04/2022 9:46 AM by External Provider: Consultation - Emergency Medicine Ganesh White MA documented in this encounterProm[facility] History of Past illness Narrative* Problem [...] of this encounter (statuses as of 04/21/2023) [facility] History of Past illness Narrative* Problem [...] of this encounter (statuses as of 05/19/2023) [facility] History of Past illness Narrative* Problem [...] of this encounter (statuses as of 06/01/2023) [facility] History of Past illness Narrative* Problem [...] of this encounter (statuses as of 08/25/2023) [facility] History of Past illness Narrative* Problem [...] of this encounter (statuses as of 08/25/2023) [facility] of Past illness Narrative* Problem [...] of this encounter (statuses as of 08/29/2023) [facility] History of Past illness Narrative* Problem [...] of this encounter (statuses as of 09/01/2023) [facility] of Past illness Narrative* Problem [...] of this encounter (statuses as of 09/04/2023) [facility] of Past illness Narrative* Problem [...] of this encounter (statuses as of 09/06/2023) [facility] of Past illness Narrative* Problem [...] of this encounter (statuses as of 09/07/2023) [facility] of Past illness Narrative* Problem [...] of this encounter (statuses as of 09/26/2023) [facility] of Past illness Narrative* Problem [...] of this encounter (statuses as of 09/29/2023) [facility] of Past illness Narrative* Problem [...] of this encounter (statuses as of 10/04/2023) [facility] of Past illness Narrative* Problem [...] of this encounter (statuses as of 10/14/2023) [facility] of Past illness Narrative* Problem [...] of this encounter (statuses as of 10/17/2023) [facility] of Past illness Narrative* Problem [...] of this encounter (statuses as of 10/17/2023) [facility] of Past illness Narrative* Problem [...] of this encounter (statuses as of 10/17/2023) [facility] Cuevas [facility] September 05, 2022 7:07am Note Date/Time September 05, 2022 7:07am [facility] Medical Records Department [address] [place] [address] Progress Note - Cardiology 09/05/22705 MR#: [id number] Acct: [id number] Name: NAZARIO HUTTON Rep #:[id number] : 1950 71 From: Lukas Cuevas MD PCP: Dr. Valeriano Choe MD Status:ADM IN Location: [place] [address] Subjective Subjective Patient seen and evaluated. Appears [...] 70.3 H, Lymph % (Auto) 12.1 L, Johnston % (Auto) 11.5 H, Eos % (Auto) [...] 70.3 H, Lymph % (Auto) 12.1 L, Johnston % (Auto) 11.5 H, Eos % (Auto) [...] Cosigner Signature (if applicable): CC: ~ Signed [facility] Work Phone: 1(926) 985-988902-12-[address] Corbin [facility] September 04, 2022 4:15pm Note Date/Time September 04, 2022 2:24pm [facility] Medical Records Department [address] [place] [address] Progress Note - Hospitalist 09/04/22 1419 MR#: [id number] Acct: [id number] Name: NAZARIO HUTTON Rep #:[id number] : 1950 71 From: Melissa Corbin MD PCP: Dr. Valeriano Choe MD Status:ADM IN Location: [facility] [id number]- 1 Reason for Visit Reason for Visit: [...] 78.2 H, Lymph % (Auto) 9.1 L, Johnston % (Auto) 9.7, Eos % (Auto) 2.2, [...] 70.3 H, Lymph % (Auto) 12.1 L, Johnston % (Auto) 11.5 H, Eos % (Auto) [...] mild segmental systolic dysfunction. Records requested from [facility] * cardiology on board * for [...] prophylaxis; SCDs. Charges/Coding Visit Charges Inpatient E&M: 68365 Subs Hosp L3 09/04/22 1615 <Electronically signed by Melissa Corbin MD> Cosigner Signature (if applicable): CC: ~ Signed [facility] Work Phone: 1(802) 974-338102-12-[address] Corbin [facility] September 04, 2022 4:14pm Note Date/Time September 03, 2022 3:04pm [facility] Medical Records Department [address] [place] [address] Progress Note - Hospitalist 09/03/22 1500 MR#: [id number] Acct: [id number] Name: NAZARIO HUTTON Rep #:[id number] : 1950 71 From: Melissa Crobin MD PCP: Dr. Valeriano Choe MD Status:ADM IN Location: [place] [address] 1 Reason for Visit Reason for Visit: [...] H, RDW Coeff of Dorie 13.4, Plt [id number], MPV 10.7, Immature Gran % (Auto) 0.600, Neut % (Auto) 74.7 H, Lymph % (Auto) 11.7 L, Johnston % (Auto) 11.1 H, Eos % (Auto) 1.6, Baso % (Auto) 0.3, Absolute Neuts (auto) 7.2, Absolute Lymphs (auto) 1.13, Nucleated RBC % 0.2 09/03/22 07:10: Sodium 142, Potassium 3.6, Chloride 112 H, Carbon Dioxide 24.0, Anion Gap 6, BUN 14, Creatinine 0.86, Estim Creat Clear Calc 81.35, Est GFR (MDRD) Af Amer 112, Est GFR (MDRD) Non-Af 93, BUN/Creatinine Ratio 16.2, Lvnfjas19, Calcium 8.0 L, Total Bilirubin 0.70, AST [...] Ordering Physician: Melissa Corbin Referring Physician: Valeriano Choe Performed By: Elvira James RDCS Physical Exam [...] segmental systolic dysfunction. Will request records from [facility] * cycle troponins * consult cardiology. [...] prophylaxis; SCDs. Charges/Coding Visit Charges Inpatient E&M: 74591 [facility] Hosp 09/04/22 1614 <Electronically signed by Melissa Corbin MD> Cosigner Signature (if applicable): CC: ~ Signed [facility] Work Phone: 1(658) 168-916102-12-2023 Procedure [facility] 09-04-2022 Procedure [facility]02-12-2023 Procedure note [facility]23 Procedure [facility] 09-04-2022 Progress note Author Ahmet Friend [facility] September 04, 2022 10:36am Note Date/Time September 04, 2022 10:36am [facility] Medical Records Department [address] [place] [address] Progress Note 09/04/22 1033 MR#: [id number] Acct: [id number] Name: NAZARIO HUTTON Rep #:[id number] : 1950 71 From: Ahmet Chacon DO PCP: Dr. Valeriano Choe MD Status:ADM IN Location: [place] [address] Subjective Subjective Patient underwent a colonoscopy for [...] 78.2 H, Lymph % (Auto) 9.1 L, Johnston % (Auto) 9.7, Eos % (Auto) 2.2, [...] Ordering Physician: Melissa Corbin Referring Physician: Valeriano Choe Performed By: Elvira James RDCS Physical Exam [...] and followhemoglobin. Charges/Coding Visit Charges Inpatient E&M: 24532 Subs Hosp L2 09/04/22 1036 <Electronically signed by Ahmet Chacon DO> Ahmet Chacon DO Cosigner Signature (if applicable): CC: ~ Signed [facility] Work Phone: 1(617) 949-721202-12-[address] Cuevas [facility] September 04, 2022 9:39am Note Date/Time September 04, 2022 9:35am [facility] Medical Records Department [address] [place] [address] Consultation - Cardiology 09/04/22 0930 MR#: [id number] Acct: [id number] Name: NAZARIO HUTTON Rep #:[id number] : 1950 71 From: Lukas Cuevas MD PCP: Dr. Valeriano Choe MD Status:ADM IN Location: [place] [id number]- 1 Assessment & Plan Assessment/Plan (1) NSTEMI (non-ST [...] infarction in November 2021 was taken to [facility] and underwent stenting of one vessel. [...] rhythm with a left bundle branch block. [facility] Medical History Anxiety Atherosclerotic heart disease of teller coronary artery without angina pectoris Chest pain Coronary artery disease Depression Hyperlipidemia Hypertension Myocardial infarct ST elevation PA (STEMI) (~11/29/21) Home Medications allopurinol 100 mg [...] disease Hypertension Myocardial infarction age 53 following PA. Surgical History Presence of coronary angioplasty implant [...] 78.2 H, Lymph % (Auto) 9.1 L, Johnston % (Auto) 9.7, Eos % (Auto) 2.2, [...] 78.2 H, Lymph % (Auto) 9.1 L, Johnston % (Auto) 9.7, Eos % (Auto) 2.2, [...] Ordering Physician: Melissa Corbin Referring Physician: Valeriano Choe Performed By: Elvira James RDCS 09/04/22 0939 <Electronically signed by Lukas Cuevas MD> Cosigner Signature (if applicable): CC: Dr. aJel Raoms MD; Dr. Lukas Cuevas MD; Dr. Valeriano Choe MD~ Signed [facility] Work Phone: 1(153) 920-857202-11-2023 Procedure [facility] 09-03-2022 Procedure [facility]02-10-2023 History and physical note Author Dr. Ramos [facility] September 02, 2022 6:26pm Note Date/Time September 02, 2022 2:53pm [facility] Medical Records Department [address] [place] [address] H&P Exam - Hospitalist 09/02/22 1434 MR#: [id number] Acct: [id number] Name: NAZARIO HUTTON Rep #:[id number] : 1950 71 From: Jael Ramos MD PCP: Dr. Valeriano Choe MD Status:ADM [facility] - General General Date of Admission: 09/02/22 Date of Service: 09/02/22 Chief Complaint: Lightheadedness, dizziness, bloody diarrhea. HPI Narrative The patient is a 71 y/o M w/ PMHx: EtOH abuse (6 pack beer daily x 1 yr since passing of his ) with concurrent untreated Depression, HTN, HLD, CAD s/p PCIx 3 12/2021 of note, Gout who presents to the [facility] ED on 09/02/22 with history of increasing [...] as IV cipro and IV flagyl. From [employer] system last noted baseline labs 04/14/22 14.4, 44.2, macrocytic, 04/14/22 BUN/Cr 10/0.68. [facility] Medical History Anxiety Atherosclerotic heart disease of teller coronary artery without angina pectoris Chest pain Coronary artery disease Depression Hyperlipidemia Hypertension Myocardial infarct ST elevation PA (STEMI) (~11/29/21) Home Medications allopurinol 100 mg [...] disease Hypertension Myocardial infarction age 53 following PA. Surgical History (Updated 09/02/22 @ 18:21 by [...] 86.3 H, Lymph % (Auto) 4.3 L, Johnston % (Auto) 8.6, Eos % (Auto) 0.0, [...] of note, Gout who presents to the [facility] ED on 09/02/22 with history of increasing [...] 76 minutes. Charges/Coding Visit Charges Inpatient E&M: 64708 Init Hosp L3 Procedures Hospitalists Procedures: 50101 Advncd Care Plan 30 Min 09/02/22 1826 <Electronically signed by Jael Ramos MD> Cosigner Signature (if applicable): CC: Dr. Jael Ramos MD; Dr. Valeriano Choe MD~ Signed [facility] Work Phone: 1(956) 528-330802-10-2023 Consult note Author Ahmet Friend [facility] September 02, 2022 5:20pm Note Date/Time September 02, 2022 5:20pm [facility] Medical Records Department [address] [place] [address] Consultation - GI 09/02/22 1716 MR#: [id number] Acct: [id number] Name: NAZARIO HUTTON Rep #:[id number] : 1950 71 From: Ahmet Chacon DO PCP: Dr. Valeriano Choe MD Status:ADM [facility] HPI Consult Data Date of Consult: 09/02/22 [...] pain, swelling or discoloration.? He denies vomiting. [facility] Medical History (Updated 09/02/22 @ 15:42 by Jeanette Romero) Anxiety Atherosclerotic heart disease of teller coronary artery without angina pectoris Chest pain Coronary artery disease Depression Hyperlipidemia Hypertension Myocardial infarct ST elevation PA (STEMI) (~11/29/21) Home Medications allopurinol 100 mg [...] 86.3 H, Lymph % (Auto) 4.3 L, Johnston % (Auto) 8.6, Eos % (Auto) 0.0, [...] of 3. Charges/Coding Visit Charges Inpatient E&M: 98162 Init Hosp L2 09/02/22 1720 <Electronically signed by Ahmet Friend DO> Cosigner Signature (if applicable): CC: Dr. Valeriano Choe MD~ Signed [facility] Work Phone: 1(393) 400-506602-10-[address] Holguin [facility] September 02, 2022 2:40pm Note Date/Time September 02, 2022 12:26pm [facility] Medical Records Department [address] [place] [address] Emergency Department Summary 09/02/22 MR#: [id number] Acct: [id number] Name: NAZARIO HUTTON Rep #:[id number] : 1950 71 From: Marino Holguin MD PCP: Dr. Valeriano Choe MD Status:REG ER Location: ED HPI History [...] similar symptoms: No Recent Illness/Hospitalization: No PFSH PFSH Medical History Atherosclerotic heart disease of teller coronary artery without angina pectoris Coronary artery disease Hyperlipidemia Hypertension ST elevation PA (STEMI) (~11/29/21) Home Medications amlodipine 5 mg [...] PO DAILY 03/25/22 [History Last Taken Unknown] [id number] oil-omega 3-vit E 50 mg-550 mg-300 mg-30 [...] Stool was obtained for enteric pathogens. Using [employer] to compare laboratory results. Patient's had a [...] Jael Ramos. She will admit patient to [facility], full admission. She will contact Dr. Chacon regarding patient. Discussed CAT scan. She [...] 86.3 H Lymph % (Auto) 4.3 L Johnston % (Auto) 8.6 Eos % (Auto) 0.0 [...] of hypertension Disposition Disposition: Acute Care Hospital [facility] What to do if you have Problems For any increased pain, shortness of breath, bleeding, nausea or vomiting, chestpain, or any unexpected problems, contact your Primary Care Provider. Call [facility] ([phone]) or report to the closest Emergency Room. Call 911 if necessary. 09/02/22 1440 <Electronically signed by Marino Holguin MD> Cosigner Signature (if applicable): CC: Dr. Valeriano Choe MD ~ Signed [facility] Work Phone: 1(895) 478-429409-26-2022 Instructions* Patient Instructions* Valeriano Choe MD - 04/18/2022 3:14 PM EDT Consider getting the shingrix vaccine for the prevention of shingles from a local pharmacy Please get labs done on or after 10/07/2022 prior to your next visit. documented in this encounterProm[facility]09-[facility] History of Present illness Narrative* Valeriano [...] He is currently doing cardiac rehab at [facility] 3 days a week. 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 Valeriano Choe MD documented in this encounterPromed[facility]09-20-2022 Miscellaneous Notes* Telephone Encounter - Zenobia Monroy - 04/12/2022 10:56 AM EDT Patient is wanting to have labs placed prior to seeing Dr. Choe. Please advise patient via mychart when labs are placed or if he needs to wait until after the appointment. Thank you, Zenobia Monroy documented in this encounterPromedica [facility]07-07-2022 Hospital Discharge instructions Patient Education 01/27/2022 [...] Document Reviewed: 07/11/2014 ExitCare Patient Information 2015 [employer]. This information is not intended to replace [...] until you are awake and alert. Take mjkt-pwx-pqngugg and prescription medicines only as told by [...] 04/30/2014 Document Revised: 06/22/2018 Document Reviewed: 10/29/2016 [employer] Patient Education 2020 [employer]. Follow Up Care 01/17/2022 13:12:32 With:[facility] Rehabilitation Address: [address] [place] [address]- When: Unknown Comments:Cardiac Rehab will call you for an appointment in 1-2 weeks.Information given. Please call us with any questions. [phone] With:VALERIANO CHOE Address: [address] [place] [address]- Business (1) When: Unknown With:FRANKLIN VAUGHN MD Address: [address] [facility] [address] [facility] [place] [address]- When:03/11/2022 13:30:00 [facility] 07-07-2022 Summary of episode note Discharge Instructions Thank you for allowing [place] to assist you with your healthcare needs. The following is importantdischarge information regarding your hospital visit. Your Care Team VALERIANO CHOE MD What to do next Scheduled Follow-Up Appointments [facility] Up 03/11/2022 01:30 PM EDT [facility] Follow Up Appointments Follow Up with FRANKLIN VAUGHN MD When 03/11/2022 01:30 PM EDT Where: [address] [facility] [address] [place] [address]- Follow Up with [facility] When Why: Cardiac Rehab will call you for an appointment in 1-2 weeks.Information given. Please call us with any questions. [phone] Where: [address] [place] [address]- Follow Up with VALERIANO CHOE When In 0 days Where: [address] [place] [address]- [facility] (1) The Following Activity and Diet Have [...] Document Reviewed: 07/11/2014 ExitCare Patient Information 2015 [employer]. This information is not intended to replace [...] until you are awake and alert. Take wrak-eti-xhwnmxv and prescription medicines only as told by [...] 04/30/2014 Document Revised: 06/22/2018 Document Reviewed: 10/29/2016 Elsevier Patient Education 2020 [employer] Additional Information VACCINATE! IT SAVES LIVES! Members of the community who have not yet received the COVID-19 vaccine and would like to receive it can visit one of [facility] vaccine clinics. There are many vaccine clinic locations within the [facility] - [place]. For locations and available times, please visit [email or web address].gov/. It is important to note that some COVID mobile vaccine clinics are held outdoors and may be canceled in rainy or stormy conditions. To learn more about pediatric vaccinations (ages 5-11), we invite you to visit the [facility] webpage. [email or web address]/[email or web address].htmlTo learn more about the COVID-19 vaccine, we invite you to visit the [facility] website for a list of frequently asked questions. [email or web address] _[email or web address].pdf [facility] Patient Portal Access Instructions: Stay connected with your healthcare team and access your personal medical information anytime with the [email or web address] Patient Portal.If you would like a full copy of your medical records, please contact the [facility] Medical Records Department, Monday through Monday between 8a.m. and 4:30p.m. Please follow the directions below to access the portal: 1.Access the email account you provided upon registration to the [facility].2.Look for an invitation email from [facility].3.Open the email and access the invitation link: Accept Invitation to [email or web address]in4.Fill in the required shaikh to create your account. Sign into www.Xolve with your username and password that you [...] you will allow to register on the [facility] Patient Portal for access to your information. You can also access the [facility] Patient Portal on the [employer]. Simply click on Health Records under Contapps and then click on the [facility] logo. HOW TO SAFELY DISPOSE OF PRESCRIPTION [...] Call your local pharmacy or go to [email or web address] to find one close to you.3.Make use of household items: Use cat litter or old coffee grounds to dispose medications if other options arenot available. Mix your drugs with these household products, seal them in an airtight container andthrow it into the garbage. Call [facility]: [phone] to be sure your drugs can be [...] aware that I should contact my doctor. 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 * Telephone Encounter - Ganesh White MA - 12/02/2021 4:59 PM EDT Contacted [facility] requested hospital documentation. Ganesh White MA * Telephone Encounter - Nara Yates RN - 12/02/2021 4:18 PM EDT Patient returned call. He was sent by [employer] to [facility] from work then to [facility] on Wednesday 11/29. On arrival to [facility] he went directly to quality assurance/r&d lab technician for stent to RCA. Hewas discharged home on 12/01. He has an appointment with a audio experience expert in [place] on 12/28. He was discharged on Brilinta [...] Cardiology? Ganesh White MA' documented in this encounterProm[facility]22 Hospital Discharge instructions Patient Education 12/01/2021 12:31:14 Hypertension, Adult, Smjv-cc-Govg Hypertension, Adult Hypertension is another name for [...] your doctor. This is important. Medicines Take wlpx-wbt-rfspzfz and prescription medicines only as told by [...] 12/26/2008 Document Revised: 03/20/2019 Document Reviewed: 03/20/2019 [employer] Patient Education 2020 [employer]. 12/01/2021 12:31:01 Heart Attack, Bwon-yu-Qmzy Heart Attack A heart attack occurs when blood and oxygen supply to the heart is cut off. A heart attack causes damage to the heart that cannot be fixed. A heart attack is also called a myocardial infarction, or PA. If you think you are having a [...] Follow these instructions at home: Medicines Take lebg-rap-zjfmnuo and prescription medicines only as told by [...] 01/08/2013 Document Revised: 10/21/2019 Document Reviewed: 10/21/2019 [employer] Patient Education 2020 [employer]. 12/01/2021 12:30:46 Atrial Fibrillation, Thkw-bo-Qqah Atrial Fibrillation Atrial fibrillation is a condition [...] Document Reviewed: 08/20/2013 ExitCare Patient Information 2015 [employer]. This information is not intended to replace advicegiven to you by your health care provider. Make sure you discuss any questions you have with your health care provider. Follow Up Care 11/29/2021 15:20:14 With:TESSA MENG MD, Thoracic Service, Vascular Service Address: [address] [place] [address] [address] [facility] [place] [address]- [phone] When:12/28/2021 15:00:00 With:CHRISTINE SNYDER MD Address: [address] [place] [address] [address] [facility] [place] [address]- [phone] When:12/28/2021 11:30:00 Comments:THIS APPOINTMENT WILL BE WITH PONCHO BYRNE With:Cardiac Rehabilitation Address: [address] [place] [address]- When: Unknown Comments:Cardiac Rehab will call you for an appointment in 1-2 weeks.Information given. Please call us with any questions. [phone] With:VALERIANO CHOE Address: [address] [place] [address]- Business (1) When:1-2 days [facility] 05-09-2022 Evaluation + Plan noteExtracted from: [...] x1 MIRANDA We will give him Clarita Meng came down the stairs to evaluate patient in [place] for future outpatient bypass after this initial [...] of this technology. Dr. Lisa Reeves Interventional Disk Operator, PGY 7 Pager: [phone] Please call with any questions or concerns Attending for this patient encounter is Dr. Nicolas Future Appointments Appointment Date:12/28/2021 11:30:00 AM Scheduled Provider:CATY MACARIO Location:[facility] Appointment Type:[facility] Follow Up Appointment Date:12/28/2021 03:00:00 PM Scheduled Provider:TESSA MENG MD Location:[facility] Appointment Type:[facility] 01-09-2019 History of Past illness Narrative* Problem Noted Date Resolved Date High serum parathyroid hormone (PTH) 08/01/2018 08/12/2019 Elevated PTHrP level 07/21/2018 08/12/2019 Impaired fasting glucose 09/03/2017 019 Abrasion of left ear canal 08/28/201708/12 Stool guaiac positive 01/19/2016 08/01/2018 Hyperuricemia 10/30/2014 08/12/2019 Neurodermatitis 07/12/2011 08/01/2018 documented as of this encounter (statuses as of 12/02/2021) [facility] of Past illness Narrative* Problem Noted Date Resolved Date High serum parathyroid hormone (PTH) 08/01/2018 08/12/2019 Elevated PTHrP level 07/21/2018 08/12/2019 Impaired fasting glucose 09/03/2017 019 Abrasion of left ear canal 08/28/201708/12 Stool guaiac positive 01/19/2016 08/01/2018 Hyperuricemia 10/30/2014 08/12/2019 Neurodermatitis 07/12/2011 08/01/2018 documented as of this encounter (statuses as of 12/31/2021) [facility] of Past illness Narrative* Problem Noted Date Resolved Date High serum parathyroid hormone (PTH) 08/01/2018 08/12/2019 Elevated PTHrP level 07/21/2018 08/12/2019 Impaired fasting glucose 09/03/2017 019 Abrasion of left ear canal 08/28/201708/12 Stool guaiac positive 01/19/2016 08/01/2018 Hyperuricemia 10/30/2014 08/12/2019 Neurodermatitis 07/12/2011 08/01/2018 documented as of this encounter (statuses as of 01/02/2022) [facility] illness Narrative* Problem Noted Date Resolved Date High serum parathyroid hormone (PTH) 08/01/2018 08/12/2019 Elevated PTHrP level 07/21/2018 08/12/2019 Impaired fasting glucose 09/03/2017 019 Abrasion of left ear canal 08/28/201708/12 Stool guaiac positive 01/19/2016 08/01/2018 Hyperuricemia 10/30/2014 08/12/2019 Neurodermatitis 07/12/2011 08/01/2018 documented as of this encounter (statuses as of 04/12/2022) [facility] Narrative* Problem Noted Date Resolved Date High serum parathyroid hormone (PTH) 08/01/2018 08/12/2019 Elevated PTHrP level 07/21/2018 08/12/2019 Impaired fasting glucose 09/03/2017 019 Abrasion of left ear canal 08/28/201708/12 Stool guaiac positive 01/19/2016 08/01/2018 Hyperuricemia 10/30/2014 08/12/2019 Neurodermatitis 07/12/2011 08/01/2018 documented as of this encounter (statuses as of 04/19/2022) [facility] Narrative* Problem Noted Date Resolved Date High serum parathyroid hormone (PTH) 08/01/2018 08/12/2019 Elevated PTHrP level 07/21/2018 08/12/2019 Impaired fasting glucose 09/03/2017 019 Abrasion of left ear canal 08/28/201708/12 Stool guaiac positive 01/19/2016 08/01/2018 Hyperuricemia 10/30/2014 08/12/2019 Neurodermatitis 07/12/2011 08/01/2018 documented as of this encounter (statuses as of 09/06/2022) [facility] Narrative* Problem Noted Date Resolved Date High serum parathyroid hormone (PTH) 08/01/2018 08/12/2019 Elevated PTHrP level 07/21/2018 08/12/2019 Impaired fasting glucose 09/03/2017 019 Abrasion of left ear canal 08/28/201708/12 Stool guaiac positive 01/19/2016 08/01/2018 Hyperuricemia 10/30/2014 08/12/2019 Neurodermatitis 07/12/2011 08/01/2018 documented as of this encounter (statuses as of 09/06/2022) [facility] Narrative* Problem Noted Date Resolved Date High serum parathyroid hormone (PTH) 08/01/2018 08/12/2019 Elevated PTHrP level 07/21/2018 08/12/2019 Impaired fasting glucose 09/03/2017 019 Abrasion of left ear canal 08/28/201708/12 Stool guaiac positive 01/19/2016 08/01/2018 Hyperuricemia 10/30/2014 08/12/2019 Neurodermatitis 07/12/2011 08/01/2018 documented as of this encounter (statuses as of 09/12/2022) [facility] Narrative* Problem Noted Date Resolved Date High serum parathyroid hormone (PTH) 08/01/2018 08/12/2019 Elevated PTHrP level 07/21/2018 08/12/2019 Impaired fasting glucose 09/03/2017 019 Abrasion of left ear canal 08/28/201708/12 Stool guaiac positive 01/19/2016 08/01/2018 Hyperuricemia 10/30/2014 08/12/2019 Neurodermatitis 07/12/2011 08/01/2018 documented as of this encounter (statuses as of 09/16/2022) [facility] Narrative* Problem Noted Date Resolved Date High serum parathyroid hormone (PTH) 08/01/2018 08/12/2019 Elevated PTHrP level 07/21/2018 08/12/2019 Impaired fasting glucose 09/03/2017 019 Abrasion of left ear canal 08/28/201708/12 Stool guaiac positive 01/19/2016 08/01/2018 Hyperuricemia 10/30/2014 08/12/2019 Neurodermatitis 07/12/2011 08/01/2018 documented as of this encounter (statuses as of 09/16/2022) [facility] Narrative* Problem Noted Date Resolved Date High serum parathyroid hormone (PTH) 08/01/2018 08/12/2019 Elevated PTHrP level 07/21/2018 08/12/2019 Impaired fasting glucose 09/03/2017 019 Abrasion of left ear canal 08/28/201708/12 Stool guaiac positive 01/19/2016 08/01/2018 Hyperuricemia 10/30/2014 08/12/2019 Neurodermatitis 07/12/2011 08/01/2018 documented as of this encounter (statuses as of 10/12/2022) [facility] Narrative* Problem Noted Date Resolved Date High serum parathyroid hormone (PTH) 08/01/2018 08/12/2019 Elevated PTHrP level 07/21/2018 08/12/2019 Impaired fasting glucose 09/03/2017 019 Abrasion of left ear canal 08/28/201708/12 Stool guaiac positive 01/19/2016 08/01/2018 Hyperuricemia 10/30/2014 08/12/2019 Neurodermatitis 07/12/2011 08/01/2018 documented as of this encounter (statuses as of 10/13/2022) [facility] Narrative* Problem Noted Date Resolved Date High serum parathyroid hormone (PTH) 08/01/2018 08/12/2019 Elevated PTHrP level 07/21/2018 08/12/2019 Impaired fasting glucose 09/03/2017 019 Abrasion of left ear canal 08/28/201708/12 Stool guaiac positive 01/19/2016 08/01/2018 Hyperuricemia 10/30/2014 08/12/2019 Neurodermatitis 07/12/2011 08/01/2018 documented as of this encounter (statuses as of 10/21/2022) [facility] Narrative* Problem Noted Date Resolved Date High serum parathyroid hormone (PTH) 08/01/2018 08/12/2019 Elevated PTHrP level 07/21/2018 08/12/2019 Impaired fasting glucose 09/03/2017 019 Abrasion of left ear canal 08/28/201708/12 Stool guaiac positive 01/19/2016 08/01/2018 Hyperuricemia 10/30/2014 08/12/2019 Neurodermatitis 07/12/2011 08/01/2018 documented as of this encounter (statuses as of 11/11/2022) [facility] Narrative* Problem Noted Date Resolved Date High serum parathyroid hormone (PTH) 08/01/2018 08/12/2019 Elevated PTHrP level 07/21/2018 08/12/2019 Impaired fasting glucose 09/03/2017 019 Abrasion of left ear canal 08/28/201708/12 Stool guaiac positive 01/19/2016 08/01/2018 Hyperuricemia 10/30/2014 08/12/2019 Neurodermatitis 07/12/2011 08/01/2018 documented as of this encounter (statuses as of 11/15/2022) [facility] Narrative* Problem Noted Date Resolved Date High serum parathyroid hormone (PTH) 08/01/2018 08/12/2019 Elevated PTHrP level 07/21/2018 08/12/2019 Impaired fasting glucose 09/03/2017 019 Abrasion of left ear canal 08/28/201708/12 Stool guaiac positive 01/19/2016 08/01/2018 Hyperuricemia 10/30/2014 08/12/2019 Neurodermatitis 07/12/2011 08/01/2018 documented as of this encounter (statuses as of 12/20/2022) [facility] Narrative* Problem Noted Date Resolved Date High serum parathyroid hormone (PTH) 08/01/2018 08/12/2019 Elevated PTHrP level 07/21/2018 08/12/2019 Impaired fasting glucose 09/03/2017 019 Abrasion of left ear canal 08/28/201708/12 Stool guaiac positive 01/19/2016 08/01/2018 Hyperuricemia 10/30/2014 08/12/2019 Neurodermatitis 07/12/2011 08/01/2018 documented as of this encounter (statuses as of 01/06/2023) [facility] Author Louis Castillo [facility] Note Date/Time March 20, 2025 7: [address] [place] [address] Medical Records Department [address] [place] [address] Pre-Anesthesia Evaluation 03/20/25 0658 MR#: [id number] Acct: [id number] Name: NAZARIO HUTTON Rep #:[id number] : 1950 74 From: Louis Castillo MD PCP: Dr. Valeriano Choe MD Status:REG SDC Y Race: C Location: [place] [address] ASA Classification* ASA Classification ASA Classification: 3 Assessment & Plan Anesthesia* Anesthesia Assessment Anesthesia Assessment: Discussed sedation and/or anesthesia options, risks, benefits, and alternatives with patient/parents/legal guardian/POA. Questions invited. The patient/parents/legal guardian/POA seems to understand and agrees to proceedwith anesthesia plan. Reviewed the physical assessment, medical history, allergy history and patient home medications list prior to surgery/procedure/anesthetic and documented any changes. Performed airway and anesthesia risk assessments. Anesthesia Type Anesthesia Type: MAC History Source History Obtained from:: Patient and Chart Anesthesia Focused Assessment* Temperature: 97.5 F Pulse Rate: 71 Blood Pressure: 114/72 Respiratory Rate: 16 Pulse Ox: 94 Oxygen Delivery Method: Room Air Airway Assessment Mouth opens: 2 cm Mallampati Score: IV Teeth Condition: Missing (Patient is missing several teeth. Rest are tight.) Neck Range of motion (ROM): Limited ROM (Slight Decrease) Labs Anesthesia Preop lab: CBC WBC 6.4 K/mm3 (4.4-11.0) 03/10/25 11:10 03/10/25 RBC 3.51 M/mm3 (4.6-6.2) L 03/10/25 11:10 03/10/25 Hgb 12.5 g/dL (13.0-16.5) L 03/10/25 11:10 5 Hct 37.1 % (40-54) L 03/10/25 11:10 03/10/25 Plt Count 180 K/mm3 (150-450) 03/10/25 11:10 03/10/25 CHEMISTRY Potassium 4.4 mmol/L (3.3-5.1) 03/10/25 11:10 03/10/25 Sodium 139 mmol/L (133-145) 03/10/25 11:10 03/10/25 Magnesium 2.1 mg/dL (1.5-2.2) 01/23/25 20:21 01/23/25 Phosphorus 2.8 mg/dL (2.7-4.5) 01/25/25 05:39 01/25/25 BUN 9 mg/dL (4-19) 03/10/25 11:10 03/10/25 Creatinine 0.74 mg/dL (0.70-1.20) 03/10/25 11:10 03/10/25 Glucose 115 mg/dL (70-99) H 03/10/25 11:10 03/10/25 TSH 1.920 uIU/mL (0.300-4.200) 01/24/25 04:04 11/15 COAG PT 14.3 SECONDS (11.7-14.9) 03/10/25 11:10 Pre-Assessment Diagnosis/Proposed Procedure Planned Operative Procedure(s): COLONOSCOPY Anesthesia History Anesthesia History - compliance professional: Anesthesia History - compliance professional Hx Hospitalization Yes 03/18/25 11:59 Any Problems With Anesthesia No 03/18/25 11:59 Cholinesterase deficiency No 03/18/25 11:59 You/Your Family Experience No 03/18/25 11:59 fever (hyperthermia) with Relationship Recent Exposure to Contagious No 03/20/25 06:30 Disease Does patient have nerve No 03/18/25 11:59 stimulator Patient instructed to have device shut off --Does patient have Pacemaker No 03/20/25 06:32 or ICD? When Was Last Pacemaker Check QUESTION #4 FULL TEXT: You/Your Family Experience fever (hyperthermia) with Anesthesia Last Oral Intake Last Oral intake: Last Oral Intake NPO since 01:00 03/20/25 06:32 Meds taken in AM with sips of Yes 03/20/25 06:32 water? Meds patient instructed to take am of surgery Any additional information?: Yes NPO since: 01:00 (Patient finished prep at 1 AM.) Meds taken in AM with sips of water?: Yes PONV PONV - compliance professional: PONV - compliance professional Female No 03/18/25 11:59 HX of Motion Sickness No 03/18/25 11:59 HX of N/V After Surgery No 03/18/25 11:59 Non-Smoker Yes 03/18/25 11:59 Duration of Surgery greater No 03/18/25 11:59 than 60 minutes Number of Risk Factors 1 03/18/25 11:59 PONV Score Low Risk 03/18/25 11:59 Height & Weight Height & Weight: Anesthesia: Height & Weight Height 5 ft 10 in 03/20/25 06:32 Weight: 97.432 kg 03/20/25 06:32 Body Mass Index (BMI) 30.8 03/20/25 06:32 Respiratory Assessment Respiratory Assessment - compliance professional: Respiratory Tract Infection Hx - compliance professional Hx Respiratory Tract Infection No 03/18/25 11:59 STOP Sleep Apnea STOP Sleep Apnea - compliance professional: STOP Sleep Apnea - compliance professional Hx Hypertension Yes: CONTROLLED ON MED 03/18/25 11:59 Hx Sleep Apnea No 03/18/25 11:59 CPAP BIPAP Do you snore loudly (louder No 03/18/25 11:59 than talking or can be heard Do you often feel tired/ No 03/18/25 11:59 fatigued/ sleepy during daytime? Has anyone observed you stop No 03/18/25 11:59 breathing during sleep? STOP Results Negative 03/18/25 11:59 QUESTION #5 FULL TEXT : Do you snore loudly (louder than talking or can be heard through closed doors)? Tobacco Use History Tobacco Use History - compliance professional: Tobacco Use History - compliance professional Tobacco Use Smoking Status Former smoker 03/18/25 11:59 Hx Tobacco Use No 03/18/25 11:59 Years Smoking Packs Smoked per Day Smoking Cessation Date was No - quit smoking greater 03/18/25 11:59 within the last 15 years than 15 years ago Hx Smoking Cessation Date 07/24/71 03/18/25 11:59 Hx Smoking Cessation No 03/18/25 11:59 Counseling Hematologic Medial History Hematologic Hx - compliance professional: Hematologic Medical Hx - station gateman Hx of Blood Transfusion Yes 03/18/25 11:59 Hx of Transfusion in last 3 No 03/18/25 11:59 Months Date of Last Transfusion (if within last 3 months) Ever experience any problems No 03/18/25 11:59 with transfusion(s)? Specify any problems Hx of Preganancy in last 3 N/A 03/18/25 11:59 Months Nurse Filling Out Transfusion VCHRISTIN 03/18/25 11:59 & Questions: Date: 03/18/25 03/18/25 11:59 Time: 12:00 03/18/25 11:59 Patient unable to answer at this time (ie. confused, unrespo /Reproduction History /Reproductive History - compliance professional: /Reproductive Hx- compliance professional Hx Now No 03/18/25 11:59 Gestational Age (in weeks): EDC: Hx Hx Para Hx Section SAB No 03/18/25 11:59 Active Medications Active Medications: Current Medications Generic Name Dose Route Start Last Admin Trade Name Freq PRN Reason Stop Dose Admin Lactated Ringer's 1,000 mls @ 15 mls/hr 03/20/25 06:15 03/20/25 06:40 IV 15 mls/hr .Q48H YASMIN Administration PFSH Medical History Wears glasses Alcohol use Kidney stones Fatty liver Excessive bleeding High cholesterol History of GI bleed History of diverticulitis Gastric reflux History of edema History of echocardiogram History of stress test Cardiology follow-up encounter High serum parathyroid hormone (PTH) Heart murmur Elevated alkaline phosphatase level Elevated PSA Diverticulosis AVM (arteriovenous malformation) of colon Vitamin D deficiency Gout Alcohol abuse Essential hypertension Chest pain Anxiety Depression Myocardial infarct Chest pain Acute blood loss anemia Bloody diarrhea Coronary artery disease Atherosclerotic heart disease of teller coronary artery without angina pectoris ST elevation PA (STEMI) (~11/29/21) Hyperlipidemia Hypertension Home Medications ?Medication ?Instructions ?Recorded ?Last Taken ?Type allopurinol 100 mg tablet 100 mg PO DAILY GOUT 2 01/23/25 08:20 History atorvastatin 80 mg tablet 80 mg PO QHS CHOLESTEOL 09/1403/19/25 History ezetimibe 10 mg tablet 10 mg PO QHS CHOLESTEROL 05/1503/19/25 History nitroglycerin 0.4 mg sublingual 0.4 mg sublingual UD P RN Chest Pain 09/02/22 Unknown History tablet cholecalciferol (vitamin D3) 125 125 mcg PO DAILY supp lement 09/01/23 03/19/25 History mcg (5,000 unit) capsule omega 3-dha 100 mg-epa 400 mg-fish 1 cap PO DAILY supp lement 09/01/23 03/19/25 History oil 1,000 mg capsule vitamin B complex (B 1 tab PO DAILY feet 09/01/23 03/19/25 History Complex-Vitamin B12 tablet) isosorbide mononitrate 30 mg 30 mg PO QAM bp 04/15/24 03/20/25 04:00 History tablet,extended release 24 hr amlodipine 5 mg tablet 5 mg PO QDAY bp 09/19/2410/15 08:20 History Held on 02/26/25. Instructions: Order Changed carvedilol 12.5 mg tablet 12.5 mg PO BID bp 09/19/24 0 03/20/25 04:00 History gabapentin 300 mg capsule 600 mg PO BID neuropathy 03/20/25 History doxepin 25 mg capsule 25 mg PO QHS mood 11/05/24 0 03/19/25 History aspirin 81 mg capsule 81 mg PO DAILY heart 5 01/23/25 08:21 History epinephrine 0.3 mg/0.3 mL 0.3 mg (0.3 mL) IM X1 PRN Unknown Rx injection, auto-injector (EpiPen) anaphylaxis/angioede ma #1 ea peg 3350-sod sulf,ctyjd-qmt-exo See Rx Instructions PO .COMPLEX #2 01/29/25 03/20/25 Rx 178.7-7.3-0.5-1.12-0.9 gram oral mL soln (Suflave) ferrous sulfate 325 mg (65 mg 325 mg PO QODAY #30 tabs 02/26/25 03/16/25 Rx iron) tablet pantoprazole 40 mg tablet,delayed 40 mg PO DAILY 1 mon #30 tabs 02/26/25 03/19/25 Rx release (Protonix) ascorbic acid (vitamin C) 1,000 mg 500 mg PO QDAY 02/2203/19/25 History tablet diphenhydramine HCl 25 mg capsule 25 mg PO Q8H PRN all ergic reaction 03/18/25 Unknown History (Aler-Cap) fexofenadine 180 mg tablet 180 mg PO DAILY 03/18/25 History (Marii Allergy) multivitamin (Daily Multi-Vitamin 1 tab PO DAILY 03/1803/19/25 History tablet) Allergy/AdvReac Type Severity Reaction Status Date / Time losartan Allergy Severe Angioedema Verified 03/20/25 06:27 hydrochlorothiazide Allergy Hives Verified 03/20/25 06:27 Family History Mother COPD (chronic obstructive pulmonary disease) Lung cancer Father Heart disease Hypertension Myocardial infarction age 53 following PA. Surgical History History of cardiac catheterization H/O colonoscopy S/P cataract extraction Presence of coronary angioplasty implant and graft (~11/29/21) Social History household members: none Smoking Status: Former smoker how long ago did patient quit smoking: Smoked from age 18, 1 ppd x 4 years and then quit. alcohol intake: current alcohol intake frequency: a few times a week Alcohol type: beer substance use type: does not use Review of Systems (Anesthesia) ROS Narrative System reviewed and no additional complaints, except as documented. 03/20/25 0705 <Electronically signed by Louis hunter MD> Date _ Louis Guy Signature: Date CC: ~ Signed [facility] [facility] Work Phone: Consult note Author Justin Moore [facility] Note Date/Time March 20, 2025 7: 42[facility] Records Department [address] [place] [address] [place] [address] Anesthesia Postop Eval I 03/20/25740 MR#: [id number] Acct: [id number] Name: NAZARIO HUTTON Rep #:[id number] : 1950 74 From: Justin Moore PCP: Dr. Valeriano Choe MD Status:REG [facility] Y Race: C Location: [place] [address] Anesthesia: Postop Eval I Current Vital Signs Temperature: 97.7 F Pulse Rate: 68 Blood Pressure: 96/70 Respiratory Rate: 16 Pulse Ox: 94 Oxygen Delivery Method: Room Air Assessment Airway patent: Yes Spontaneous unlabored respirations: Yes Mental status: Asleep nausea: No Vomiting: No Anesthesia Complication: No Fluid Hydration Crystalloid volume administer (ml): 500 Total IV fluid infused: 500 Progress Note Anesthesia document: Postop Eval 1 completed: Yes 03/20/25741 <Electronically signed by Justin Moore > Date _ Justin Guy Signature: CC: ~ Signed [facility] Work Phone: Evaluation + Plan note No data available for this section [facility] Evaluation + Plan note Future Appointments Appointment Date:03/11/2022 01:30:00 PM Scheduled Provider: Location:[facility] Appointment Type:[facility] Hospital Follow Up [facility] evaluation note* Diagnosis Myocardial infarction involving left anterior descending (LAD) coronary artery, unspecified PA type (HCC)- Primary documented [facility] noteNo assessment information [facility] Work Phone: Evaluation note* Diagnosis Coronary artery disease due to lipid rich plaque- Primary Essential hypertension, benign Mixed hyperlipidemia Gout without tophus Low vitamin D level Elevated PSA Elevated prostate specific antigen (PSA) Medication management Encounter for long-term (current) use of other medications [facility] Diagnosis Medicare annual wellness visit, subsequent- Primary Routine general medical examination at a city hospital care facility Essential hypertension, benign Mixed hyperlipidemia Coronary artery disease due to lipid rich plaque Anxiety Anxiety state, unspecified Low vitamin D level Gout without tophus Elevated PSA Elevated prostate specific antigen (PSA) Living will in place Advance directive discussed with patient Other specified counseling documented in this encounter [facility] note* Diagnosis NSTEMI (non-ST elevated myocardial infarction) (HCC) Acute myocardial infarction, subendocardial infarction, episode of care unspecified Diverticulosis Diverticulosis of colon (without mention of hemorrhage) documented in this encounter [facility] note* Diagnosis Onset Date Resolution Status Acute blood loss anemia acut e BC (acute kidney injury) ac [place] Bloody diarrhea acute Chest pain acute History of hypertension acut e Leukocytosis acute NSTEMI (non-ST elevated myocardial infarction) acute [facility] Work Phone: Evaluation note* Diagnosis Lower GI bleed- Primary Hemorrhage of gastrointestinal tract, unspecified Situational depression Adjustment disorder with depressed mood 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 Alcohol abuse Alcohol abuse, unspecified H/O non-ST elevation myocardial infarction (NSTEMI) Old myocardial infarction Mixed hyperlipidemia documented in this encounter [facility] note* Diagnosis Essential hypertension, benign- Primary Mixed hyperlipidemia NSTEMI (non-ST elevated myocardial infarction) ([facility]) Acute myocardial infarction, subendocardial infarction, episode of [...] Gout without tophus [facility] Diagnosis Onset Date Resolution Status BC (acute kidney injury) ac [place] Leukocytosis acute NSTEMI (non-ST elevated myocardial infarction) acute Atherosclerotic heart diseas e of teller coronary artery without angina pectoris acute Essential hypertension acute Hyperlipidemia acute [facility] Work Phone: Evaluation note* Diagnosis Medicare [...] ear wax, right [facility] Diagnosis Essential hypertension, benign- Primary Low serum vitamin B12 Anxiety Anxiety state, unspecified [facility] Diagnosis Other specified disorders of kidney and ureter- Primary Essential hypertension, benign Kidney lesion Unspecified disorder of kidney and ureter [facility] Diagnosis Other specified disorders of kidney and ureter Kidney lesion Unspecified disorder of kidney and ureter [facility] Diagnosis Onset Date Resolution Status Neuropathy acute Other intervertebral disc degeneration, lumbar region acute Atherosclerotic heart diseas e of teller coronary artery without angina pectoris acute Dizziness acute Essential hypertension acute Hyperlipidemia acute SOB (shortness of breath) ac [place] [facility] Work Phone: Evaluation note* Diagnosis Coronary artery disease due to lipid rich plaque- Primary Essential hypertension, benign Mixed hyperlipidemia Kidney lesion Unspecified disorder of kidney and ureter Low serum vitamin B12 Gout without tophus Alcohol abuse Alcohol abuse, unspecified Elevated PSA Elevated prostate specific antigen (PSA) documented [facility] Diagnosis Renal stones- Primary Calculus of kidney Hydronephrosis, unspecified hydronephrosis type [facility] Diagnosis Balance problems- Primary Other symptoms involving nervous and musculoskeletal systems Abnormality of gait Numbness Disturbance of skin sensation Neuropathy Mononeuritis of unspecified site Other symptoms and signs involving the nervous system History of CAD (coronary artery disease) History of coronary artery stent placement Postsurgical percutaneous transluminal coronary angioplasty status documented [facility] this encounter [facility]* Diagnosis Other symptoms and signs involving the nervous system [facility]* Diagnosis Other symptoms and signs involving the nervous system [facility]* Diagnosis Occlusion and stenosis of unspecified carotid artery- Primary Nephropathy screen Screening for nephropathy Stenosis of carotid artery, unspecified laterality [facility] this encounter [facility]* Diagnosis Occlusion and stenosis of unspecified carotid artery [facility]* Diagnosis Tongue swelling- Primary Swelling, mass, or lump in head and neck [facility]* Diagnosis Essential hypertension, benign- Primary [facility]* Diagnosis Medicare annual wellness visit, subsequent- Primary Routine general medical examination at a health care facility Encounter for immunization Need for other specified prophylactic vaccination against single bacterial disease Essential hypertension, benign Advance directive discussed with patient Other specified counseling Living will in place 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 Localized superficial swelling, mass, or lump [...] specific antigen (PSA) [facility]* Diagnosis Liver fibrosis- Primary Cirrhosis of liver without mention of alcohol [facility]* Diagnosis Essential hypertension, benign- Primary [facility]* Diagnosis Alcoholic cirrhosis, unspecified whether ascites present (HCC)- Primary [facility] this encounter [facility]* Diagnosis Angioedema, subsequent encounter- Primary documented in this encounter [facility]* Diagnosis Angioedema, subsequent encounter [facility]* Diagnosis Neuropathy, idiopathic- Primary Mononeuritis of unspecified site Abnormal SPEP Other nonspecific findings on examination of blood Positive GALLO (antinuclear antibody) Other and unspecified nonspecific immunological findings Abnormality of gait Numbness Disturbance of skin sensation documented [facility] this encounter [facility]* Diagnosis Abnormal SPEP- Primary Other nonspecific findings on examination of blood documented [facility] this [facility]* Diagnosis Positive GALLO (antinuclear antibody)- Primary Other and unspecified nonspecific immunological findings Ds DNA antibody positive Other and unspecified nonspecific immunological findings Neuropathy Mononeuritis of unspecified site documented in this encounter [facility]* Diagnosis Neuropathy - (NOS)- Primary [facility] this [facility]* Diagnosis Monoclonal gammopathy- Primary Monoclonal paraproteinemia Hypercalcemia documented [facility] this [facility]* Diagnosis Monoclonal gammopathy- Primary Monoclonal paraproteinemia Neuropathy - (NOS) documented in this encounter [facility]* Diagnosis Monoclonal gammopathy Monoclonal paraproteinemia documented in this encounter [facility]* Diagnosis Essential hypertension, benign- Primary Alcoholic [...] unspecified cardiovascular conditions documented [facility] this encounter [facility]* Diagnosis Screening for abdominal aortic aneurysm Screening for other and unspecified cardiovascular conditions documented [facility] this encounter [facility]* Diagnosis Peripheral polyneuropathy- Primary Unspecified hereditary and idiopathic peripheral neuropathy Low vitamin B12 level Other B-complex deficiencies Drinks beer documented in this encounter [facility]* Diagnosis Hospital discharge follow-up- Primary Other follow-up examination Essential hypertension, benign [facility]* Diagnosis Lower GI bleed- Primary Hemorrhage of gastrointestinal tract, unspecified Angiodysplasia of colon Angiodysplasia of intestine (without mention of hemorrhage) [facility]* Diagnosis Screening for colon cancer Special screening for malignant neoplasms, colon documented in this encounter [facility] Author Flakita Florentino [facility] Note Date/Time December 27, 2024 2:52p m [facility] Medical Records Department [address] [place] [address] H&P Exam - Hospitalist 12/27/24 1411 MR#: [id number] Acct: [id number] Name: NAZARIO HUTTON Rep #:[id number] : 1950 74 From: Flakita Florentino DO PCP: Dr. Valeriano Choe MD Status:REG ER Location: ED HPI - General General Date of Admission: 12/27/24 Date of Service: 12/27/24 Chief Complaint: Tongue and lip swelling HPI Narrative NAZARIO HUTTON, is a 74 M who presented to the emergency department at [facility] on 12/27/2024 with tongue and lip [...] maintained on Solu-Medrol, H2 and H1 blockers. [facility] Medical History High serum parathyroid hormone (PTH) Heart murmur Elevated alkaline phosphatase level Elevated PSA Diverticulosis AVM (arteriovenous malformation) of colon Vitamin D deficiency Gout Alcohol abuse Essential hypertension Chest pain Anxiety Depression Myocardial infarct Chest pain Acute blood loss anemia Bloody diarrhea Coronary artery disease Atherosclerotic heart disease of teller coronary artery without angina pectoris ST elevation PA (STEMI) (~11/29/21) Hyperlipidemia Hypertension Home Medications ?Medication [...] disease Hypertension Myocardial infarction age 53 following PA. Surgical History H/O colonoscopy S/P cataract extraction [...] (Auto) 67.1, Lymph % (Auto) 9.8 L, Johnston % (Auto) 11.2 H, Eos % (Auto) [...] Patient should follow-up as an outpatient with program/music director if has not already done so Chronic [...] Full code Charges/Coding Visit Charges Inpatient E&M: 58441 Init Hosp L2 12/27/24 1452 <Electronically signed by Flakita Florentino DO> Cosigner Signature (if applicable): CC: Dr. Valeriano Choe MD; Dr. Flakita Florentino DO~ Signed [facility] Work Phone: History and physical note Author Ahmet Chacon [facility] Note Date/Time March 20, 2025 6: 59am [facility] Medical Records Department [address] [place] [address] History & Physical Exam 03/20/25 0656 MR#: [id number] Acct: [id number] Name: NAZARIO HUTTON Rep #:[id number] : 1950 74 From: Ahmet Chacon DO PCP: Dr. Valeriano Choe MD Status:REG [facility] Location: [place] [address] HPI - General General Date of Admission: 03/20/25 Date of Service: 03/20/25 Chief Complaint: varices screening HPI Narrative NAZARIO HUTTON, is a 74 M who presents with the Chief Complaint: of possible cirrhosis Details: US abd/ elastography 24- Liver measures 18.7cm, Stiffness measures 18.5 kPa OV 11..24 Previously established with GI for lower GI bleeds. Pt referred by PCP for elevated LFTs and fatty liver. Pt has hx of alcohol abuse following the of his a coulple years ago. States he currently drinks a few beers a day now. Pt denies any abdominal pain, heartburn or swelling. BM are normal oncea day. Patient was drinking more after the of his about 6 packs/day in [id number] but had cut down to few beers per day. Denies leg swelling, abdominal swelling, confusion or fall. CT abd/pel 2..25- Peripheral right lobe hepatic lesion consistent with a vascular shunt, stable from the previous exam. No new or worrisome hepatic lesions identified. Cirrhotic morphology of the liver with steatosis and hepatomegaly. OV 09.19.24 Pt here for f/u cirrhosis. Pt reports trouble swallowing, foggy brain, dizziness, and swelling in R foot and tongue occasionally. MELD Na-9 METAVIR- F4 [facility] inpatient 7.3.25- 7.5.23- LGIB with ABLA OV 8.6.25- Pt well since last visit. Denies dizziness, weakness, SOB, abdominal pain. Has not seen any dark or bloody stools. Reports the last two weeks he has had increased swelling in both feet and ankles. [facility] Medical History Wears glasses Alcohol use Kidney stones Fatty liver Excessive bleeding High cholesterol History of GI bleed History of diverticulitis Gastric reflux History of edema History of echocardiogram History of stress test Cardiology follow-up encounter High serum parathyroid hormone (PTH) Heart murmur Elevated alkaline phosphatase level Elevated PSA Diverticulosis AVM (arteriovenous malformation) of colon Vitamin D deficiency Gout Alcohol abuse Essential hypertension Chest pain Anxiety Depression Myocardial infarct Chest pain Acute blood loss anemia Bloody diarrhea Coronary artery disease Atherosclerotic heart disease of teller coronary artery without angina pectoris ST elevation PA (STEMI) (~11/29/21) Hyperlipidemia Hypertension Home Medications ?Medication ?Instructions ?Recorded ?Last Taken ?Type allopurinol 100 mg tablet 100 mg PO DAILY GOUT 2 01/23/25 08:20 History atorvastatin 80 mg tablet 80 mg PO QHS CHOLESTEOL /0 09/1403/19/25 History ezetimibe 10 mg tablet 10 mg PO QHS CHOLESTEROL 05/1503/19/25 History nitroglycerin 0.4 mg sublingual 0.4 mg sublingual UD P RN Chest Pain 09/02/22 Unknown History tablet cholecalciferol (vitamin D3) 125 125 mcg PO DAILY supp lement 09/01/23 03/19/25 History mcg (5,000 unit) capsule omega 3-dha 100 mg-epa 400 mg-fish 1 cap PO DAILY supp lement 09/01/23 03/19/25 History oil 1,000 mg capsule vitamin B complex (B 1 tab PO DAILY feet 09/01/23 03/19/25 History Complex-Vitamin B12 tablet) isosorbide mononitrate 30 mg 30 mg PO QAM bp 04/15/24 03/20/25 04:00 History tablet,extended release 24 hr amlodipine 5 mg tablet 5 mg PO QDAY bp 09/19/2410/15 08:20 History Held on 02/26/25. Instructions: Order Changed carvedilol 12.5 mg tablet 12.5 mg PO BID bp 09/19/24 0 03/20/25 04:00 History gabapentin 300 mg capsule 600 mg PO BID neuropathy 03/19/25 History doxepin 25 mg capsule 25 mg PO QHS mood 11/05/24 0 03/19/25 History aspirin 81 mg capsule 81 mg PO DAILY heart 5 01/23/25 08:21 History epinephrine 0.3 mg/0.3 mL 0.3 mg (0.3 mL) IM X1 PRN Unknown Rx injection, auto-injector (EpiPen) anaphylaxis/angioede ma #1 ea peg 3350-sod sulf,[id number] See Rx Instructions PO .COMPLEX #2 01/29/25 03/20/25 Rx 178.7-7.3-0.5-1.12-0.9 gram oral mL soln (Suflave) ferrous sulfate 325 mg (65 mg 325 mg PO QODAY #30 tabs 02/26/25 03/16/25 Rx iron) tablet pantoprazole 40 mg tablet,delayed 40 mg PO DAILY 1 mon #30 tabs 02/26/25 03/19/25 Rx release (Protonix) ascorbic acid (vitamin C) 1,000 mg 500 mg PO QDAY 02/2203/19/25 History tablet diphenhydramine HCl 25 mg capsule 25 mg PO Q8H PRN all ergic reaction 03/18/25 Unknown History (Aler-Cap) fexofenadine 180 mg tablet 180 mg PO DAILY 03/18/25 History (Marii Allergy) multivitamin (Daily Multi-Vitamin 1 tab PO DAILY 03/1803/19/25 History tablet) Allergy/AdvReac Type Severity Reaction Status Date / Time losartan Allergy Severe Angioedema Verified 03/20/25 06:27 hydrochlorothiazide Allergy Hives Verified 03/20/25 06:27 Family History Mother COPD (chronic obstructive pulmonary disease) Lung cancer Father Heart disease Hypertension Myocardial infarction age 53 following PA. Surgical History History of cardiac catheterization H/O colonoscopy S/P cataract extraction Presence of [...] does not use ROS Constitutional Constitutional: Denies fatigue, fever(s), poor appetite, weight gain or weight loss Gastrointestinal Gastrointestinal: Denies belching, bloating, change in bowel habits, change in stool character, chewing difficulty, coffee ground emesis, constipation, cramping, diarrhea, dyspepsia, dysphagia, early satiety, excessive flatus, fecalincontinence, heartburn, hematemesis, hematochezia, hemorrhoids, loose stools, melena, nausea, odynophagia, rectal bleeding, tenesmus, vomiting or weight changes Vital Signs Vital Signs Vital Signs: 03/20/25 06:30 03/20/25 06:32 Temperature 97.5 F L Temperature Source Temporal Pulse Rate 71 Respiratory Rate 16 Respiratory Pattern Normal Blood Pressure 114/72 Blood Pressure Mean 86 Blood Pressure Source Monitor Blood Pressure Position Semi-Fowlers Blood Pressure Location Left Arm Pulse Ox 94 Oxygen Delivery Method Room Air Weight Weight: 214 lb 12.8 oz Body Mass Index (BMI) 30.8 Physical Exam Const alert, oriented x3, no apparent distress and healthy appearing General Appearance: cooperative GI normal to inspection, nondistended, normoactive bowel sounds, soft to palpation,non-tender and non-distended Percussion: normal to percussion Rectal Exam: deferred Assessment & Plan Assessment/Plan (1) Cirrhosis, alcoholic: (2) Dysphagia: PLAN: Assessment and Plan Assessment and Plan (1) Cirrhosis, alcoholic: Status: Chronic Plan: Latest MELD sodium score 6 from all MELD labs on January 24, 2025., Child score A. Platelet count normal Liver ultrasound with elastography shows mildly enlarged liver, 18.5 kPa, suggestive of advanced fibrosis/cirrhosis, metavir stage IV. Abdomen triple phase was negative for arterial enhancing lesion or bile salt. It shows peripheral wedge-shaped. Vascular shunt in right lower hepatic lobe which is stable from previous exam. Patient most likely has alcoholic cirrhosis. carvedilol 12.5 mg twice daily for primary prophylaxis of esophageal varices 2D echo August 2023 Interpretation Summary Normal LV size. The estimated ejection fraction is 50 %. Mild segmental systolic dysfunction (see wall motion). Mild (1+) eccentric mitral valve insufficiency. Mild (1+) tricuspid valve insufficiency. RVSP 37 mmHg. 2 g sodium diet, avoiding excessive fluid, fast and frozen food recommended. Last EGD does not show varices. Currently patient has leg edema advised to hold amlodipine 5 mg. If swelling does not improve in last 1 month will need low-dose furosemide and spironolactone. Patient has follow-up appointment with Dr. Cuevas in the next 1 to 2 months. (2) Diverticula of colon: Status: Acute Plan: Last admission in January 2025 due to acute anemia of blood loss from lower GI bleed most likely due to recurrent diverticular bleed Previous colonoscopy in August 2022 for lower [...] lesions. Treated with argon plasma coagulation (APC). Patient did not had any blood loss/rectal bleed. Hemoglobin also improving. Last H&H 11.2/33.4%. Advised to go back on baby aspirin as patient has history of multiple PA with 4 stents with last stent in November 2021. Continue ferrous sulfate, ascorbic acid and PPI. Repeat labs ordered in 1 month. Follow-up in GI office in 4 months Orders: Orders ABD Limited w/ Elastography 1 Month D64.9 - Anemia, unspecified, I21.4 - Non-STelevation (NSTEMI) myocardial infarction, I25.10 - Atherosclerotic heart diseaseof teller coronary artery without angina pectoris, K70.30 - Alcoholic cirrhosis of liver without ascites, R06.02 - Shortness of breath Comprehensive Metabolic Profil 1 Month D64.9 - Anemia, unspecified, I21.4 - Non- ST elevation (NSTEMI) myocardial infarction, I25.10 - Atherosclerotic heart disease of teller coronary artery without angina pectoris, K70.30 - Alcoholic cirrhosis of liver without ascites, R06.02 - Shortness of breath Prothrombin Time w/INR 1 Month D64.9 - Anemia, unspecified, I21.4 - Non-ST elevation (NSTEMI) myocardial infarction, I25.10 - Atherosclerotic heart diseaseof teller coronary artery without angina pectoris, K70.30 - Alcoholic cirrhosis of liver without ascites, R06.02 - Shortness of breath Ferritin 1 Month D64.9 - Anemia, unspecified, I21.4 - Non-ST elevation (NSTEMI)myocardial infarction, I25.10 - Atherosclerotic heart disease of teller coronaryartery without angina pectoris, K70.30 - Alcoholic cirrhosis of liver without ascites, R06.02 - Shortness of breath CBC W/Diff, Automated 1 Month D64.9 - Anemia, unspecified, I21.4 - Non-ST elevation (NSTEMI) myocardial infarction, I25.10 - Atherosclerotic heart diseaseof teller coronary artery without angina pectoris, K70.30 - Alcoholic cirrhosis of liver without ascites, R06.02 - Shortness of breath Iron+Iron Binding Capacity 1 Month D64.9 - Anemia, unspecified, I21.4 - Non-ST elevation (NSTEMI) myocardial infarction, I25.10 - Atherosclerotic heart diseaseof teller coronary artery without angina pectoris, K70.30 - Alcoholic cirrhosis of liver without ascites, R06.02 - Shortness of breath Vitamin B12 1 Month D64.9 - Anemia, unspecified, I21.4 - Non-ST elevation (NSTEMI) myocardial infarction, I25.10 - Atherosclerotic heart disease of nativecoronary artery without angina pectoris, K70.30 - Alcoholic cirrhosis of liver without ascites, R06.02 - Shortness of breath 03/20/25 0659 <Electronically signed by Ahmet Chacon DO> Cosigner Signature (if applicable): CC: Dr. Valeriano Choe MD; Ahmet Chacon DO~ Signed [facility] Work Phone: Hospital Discharge instructions No data available for this section [facility] Hospital Discharge instructionsAdditional Instructions Advised to call GI office on 01/27/2025 to schedule outpatient colonoscopy with Dr. Chacon for lower GI bleed Date of Discharge: 01/25/25[facility] Work Phone: Note* FRANKLIN VAUGHN MD: SIGN, VERIFY Event Display: Percut Transluminal Coronary Angioplasty Authored Date: [id number] [facility] Progress note No data available for this section [facility] Progress note Author Dr. Crespo [facility] September 10, 2022 1:29pm Note Date/Time September 10, 2022 1:29pm [facility] Medical Records Department [address] [place] [address] Progress Note - Hospitalist 09/10/22 1328 MR#: [id number] Acct: [id number] Name: NAZARIO HUTTON Rep #:[id number] : 1950 71 From: Obdulio goyal MD PCP: Dr. Valeriano Choe MD Status:ADM IN Location: [place] [address] Subjective Subjective This progress note is for [...] mild segmental systolic dysfunction. Records requested from [facility] * Appreciate cardiology's assistance, will restart Plavix by itself in about a week #Acute alcohol withdrawal * patient has a history of heavy alcohol use, and drinks 4-6 drinks daily. * alcohol withdrawal protocol with ativan. * on folic acid, thiamine and multivitamin. DVT: SCDs Charges/Coding Visit Charges Inpatient E&M: 98772 Subs Hosp L2 09/10/22 1329 <Electronically signed by Obdulio Crespo MD> Cosigner Signature (if applicable): CC: ~ Signed [facility] Work Phone: Rezmkf for referral (narrative)No reason for referral information [facility] Work Phone: Reason for visit Narrative* Diagnostic Procedure Only (Routine) - Closed Specialty Diagnoses / Procedures Referred By Lisandroac t Referred To Contact XR IMAGING Diagnoses Monoclonal gammopathy Procedures XR BONE SURVEY ROUTINE RADIOLOGIC EXAMINATION OSSEOUS SURVEY COMPL Stephanie Stallings DO [address] [place] [id number] Phone: tel: fax: [place] [address] Referral ID Status Reason Start Date Expiration Date V isits Requested Visits Authorized [id number] Closed Auto-Generate d Referral 10/23/2024 11/22/2025 1 1 [facility] Reason for Referral Specialty Diagnoses / Procedures Referred By Lisandroac t Referred To Contact Rheumatology Diagnoses Positive GALLO (antinuclear antibody) Procedures CONSULT TO RHEUM/IMMUN DISEASE OFFICE/OUTPATIENT [facility] 60 MINUTES Patria Butler Jr., MD [address] [place] [place] [id number] Referral ID Status Reason Start Date Expiration Date Visits Requested Visits Authorized [id number] Authorized PCP Requested Referral 08/30/2024 08/30/2025 1 1 Specialty Diagnoses / Procedures Referred By Contac t Referred To Contact Allergy Diagnoses Angioedema, subsequent encounter Procedures CONSULT TO ALLERGY/IMMUNOLOGY OFFICE/OUTPATIENT [facility] 60 MINUTES Valeriano Choe MD [address] [place] [address] Referral ID Status Reason Start Date Expiration Date Visits Requested Visits Authorized [id number] Authorized PCP Requested Referral 07/31/2024 07/31/2025 1 1 Specialty Diagnoses / Procedures Referred By Contac t Referred To Contact Gastroenterology Diagnoses Liver fibrosis Procedures CONSULT TO GASTROENTEROLOGY OFFICE/OUTPATIENT [facility] 60 MINUTES Suzanna Dawson PA-C [address] [place] [address] Referral ID Status Reason Start Date Expiration Date Visits Requested Visits Authorized [id number] Authorized PCP Requested Referral 05/15/2025 1 1 Specialty Diagnoses / Procedures Referred By Contac t Referred To Contact Vascular Surgery Diagnoses Stenosis of carotid artery, unspecified laterality Procedures CONSULT TO VASCULAR SURGERY OFFICE/OUTPATIENT [facility] 60 MINUTES Patria Butler Jr., MD [address] [facility] [address] [place] [address] Referral ID Status Reason Start Date Expiration Date Visits Requested Visits Authorized [id number] Authorized PCP Requested Referral 02/07/2024 02/06/2025 1 1 Specialty Diagnoses / Procedures Referred By Contac t Referred To Contact CT IMAGING Diagnoses Occlusion and stenosis of unspecified carotid artery Procedures CTA NECK W IVCON CT ANGIOGRAPHY NECK W/CONTRAST/NONCONTRAST Patria Butler Jr., MD [facility] [address] [place] [address] [place] [address] Referral ID Status Reason Start Date Expiration Date Visits Requested Visits Authorized [id number] New Request Auto-Generat ed Referral 02/07/2024 03/08/2025 1 1 Specialty Diagnoses / Procedures Referred By Contac t Referred To Contact CT IMAGING Diagnoses Occlusion and stenosis of unspecified carotid artery Procedures CTA HEAD W IVCON CT ANGIOGRAPHY HEAD W/CONTRAST/NONCONTRAST Patria Butler Jr., MD [address] [facility] [address] [place] [address] [place] [address] Referral ID Status Reason Start Date Expiration Date Visits Requested Visits Authorized [id number] New Request Auto-Generat ed Referral 02/07/2024 03/08/2025 1 1 Specialty Diagnoses / Procedures Referred By Contac t Referred To Contact CT IMAGING Diagnoses Stenosis of carotid artery, unspecified laterality Procedures CTA NECK W IVCON CT ANGIOGRAPHY NECK W/CONTRAST/NONCONTRAST Patria Butler Jr., MD [address] [facility] [address] [place] [address] [place] [address] Referral ID Status Reason Start Date Expiration Date Visits Requested Visits Authorized [id number] New Request Auto-Generat ed Referral 02/07/2024 03/08/2025 1 1 Specialty Diagnoses / Procedures Referred By Contac t Referred To Contact CT IMAGING Diagnoses Stenosis of carotid artery, unspecified laterality Procedures CTA HEAD W IVCON CT ANGIOGRAPHY HEAD W/CONTRAST/NONCONTRAST Patria Butler Jr., MD [facility] [address] [place] [address] [place] [address] Referral ID Status Reason Start Date Expiration Date Visits Requested Visits Authorized [id number] New Request Auto-Generat ed Referral 02/07/2024 03/08/2025 1 1 Specialty Diagnoses / Procedures Referred By Contac t Referred To Contact MR IMAGING Diagnoses Other symptoms and signs involving the nervous system Procedures MRA CAROTID WO IVCON MRA, NECK; W/O CONTRAST Patria Butler Jr., MD [address] [facility] [address] [place] [address] [place] [address] Referral ID Status Reason Start Date Expiration Date Visits Requested Visits Authorized [id number] Authorized Auto-Generat ed Referral 01/01/2024 01/30/2025 1 1 Specialty Diagnoses / Procedures Referred By Contac t Referred To Contact MR IMAGING Diagnoses Other symptoms and signs involving the nervous system Procedures MRA BRAIN WO IVCON MRA, HEAD W/O CONTRAST Patria Butler Jr., MD [address] [facility] [address] [place] [address] [place] [address] Referral ID Status Reason Start Date Expiration Date Visits Requested Visits Authorized [id number] Authorized Auto-Generat ed Referral 01/01/2024 01/30/2025 1 1 Specialty Diagnoses / Procedures Referred By Contac t Referred To Contact MR IMAGING Diagnoses Other symptoms and signs involving the nervous system Procedures MRI BRAIN WO IVCON MRI BRAIN BRAIN STEM W/O CONTRAST MATERIAL Patria Butler Jr., MD [address] [facility] [address] [place] [address] Mr Imaging [facility] Referral ID Status Reason Start Date Expiration Date Visits Requested Visits Authorized [id number] Authorized Auto-Generat ed Referral 01/01/2024 01/30/2025 1 1 Specialty Diagnoses / Procedures Referred By Contac t Referred To Contact Urology Diagnoses Renal stones Hydronephrosis, unspecified hydronephrosis type Procedures CONSULT TO UROLOGY OFFICE/OUTPATIENT [facility] 60 MINUTES Valeriano Choe MD [address] [place] [address] Referral ID Status Reason Start Date Expiration Date Visits Requested Visits Authorized [id number] Authorized PCP Requested Referral 10/17/2023 08/29/2024 1 1 Specialty Diagnoses / Procedures Referred By Contac t Referred To Contact CT IMAGING Diagnoses Other specified disorders of kidney and ureter Kidney lesion Procedures CT KIDNEY WO/W IVCON CT ABDOMEN W & W/O CONTRAST Valeriano Choe MD [address] [place] [address] [place] [address] Referral ID Status Reason Start Date Expiration Date Visits Requested Visits Authorized [id number] Authorized Auto-Generat ed Referral 08/21/2023 09/19/2024 1 1 Specialty Diagnoses / Procedures Referred By Contac t Referred To Contact Neurology Diagnoses Balance problems Atrophy of muscle of right shoulder Atrophy of muscle of other site Procedures CONSULT TO NEUROLOGY OFFICE/OUTPATIENT [facility] 60-74 MINUTES Valeriano Choe MD [address] [place] [address] Referral ID Status Reason Start Date Expiration Date Visits Requested Visits Authorized [id number] Pending Review PCP Requested Referral 04/20/2023 04/19/2024 1 1 Specialty Diagnoses / Procedures Referred By Contac t Referred To Contact Cardiology Diagnoses Myocardial infarction involving left anterior descending (LAD) coronary artery, unspecified PA type (HCC) Procedures CONSULT TO CARDIOLOGY OFFICE/OUTPATIENT [facility] 60-74 MINUTES Tessa Donato, DO [address] [address] [place] [address] Referral ID Status Reason Start Date Expiration Date Visits Requested Visits Authorized [id number] Pending Review PCP Requested Referral 01/01/2022 01/01/2023 [...] DIARRHEAL ILLNESS Amb Documentation ER FU S/P [facility] INT LAB[facility] Reason for Visit BC (acute kidney in jury) Leukocytosis NSTEMI (non-ST elevated myocardial infarction) Atherosclerotic heart disease of teller coronary artery without angina pectoris Essential hypertension Hyperlipidemia Chief Complaint Anesthesia of skin Anesthesia of skin Chief Complaint Anesthesia of skin Anesthesia of skin LUMBAR SPINE Xray room 3 9 M FU E ORDERS Reason for Visit Neuropathy Other intervertebral disc degeneration, 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 Dizziness Essential hypertension Hyperlipidemia SOB (shortness of breath) Chief Complaint LUMBAR SPINE Xray room 3 9 M FU E ORDERS Dizziness and giddiness Amb Documentation Reason for Visit Neuropathy Other intervertebral disc degeneration, 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 Dizziness Essential [...] 2024 1:55pm Atherosclerotic heart diseas e of teller coronary artery without angina pectoris November 05, [...] 2024 1:55pm Atherosclerotic heart diseas e of teller coronary artery without angina pectoris November 05, [...] Admit Date Atherosclerotic heart diseas e of teller coronary artery without angina pectoris November 05, [...] Admit Date Atherosclerotic heart diseas e of teller coronary artery without angina pectoris November 05, [...] WITH ABLA January 25, 2025 9:26a m [facility] January 29, 2025 10:49 am Reason for Visit Admit Date Atherosclerotic heart diseas e of teller coronary artery without angina pectoris November 05, [...] December 30, 2024 8:54am [facility] WITH ABLA Alexsandra 3rd, 2025 10:37 pm [facility] WITH ABLA January 24, 2025 7:47a m [facility] WITH ABLA January 25, 2025 9:26a m Hospital January 29, 2025 10:49 am [facility] February 07, 2025 11:0 1am Reason for Visit Admit Date Atherosclerotic heart diseas e of teller coronary artery without angina pectoris November 05, [...] Admit Date Atherosclerotic heart diseas e of teller coronary artery without angina pectoris November 05, [...] Cirrhosis, alcoholic February 26, 2025 1: 58pm Reason for Visit Admit Date Acute respiratory [...] 10:37pm History of GI diverticular bleed January d2024 10:37pm ABLA (acute blood loss anemia) January 29, 2025 10:49am History of GI diverticular bleed January 10:49am Diverticula of colon February 26, 2025 1: 58pm Cirrhosis, alcoholic February 26, 2025 1: 58pm Dysphagia March 20, 2025 5: 44am Cirrhosis, alcoholic March 20, 2025 5 :44am Chief Complaint Admit Date LGIB WITH ABLA January 23, 2025 10:37 pm [facility] WITH ABLA January 24, 2025 7:47a m [facility] WITH ABLA January 25, 2025 9:26a m Hospital FU January 29, 2025 10:49 am [facility] February 07, 2025 11:0 1am Cirrhosis February 26, 2025 1:5 8pm Alcoholic cirrhosis of liver without asc ites March 10, 2025 9:43am 6 M FU May 08, 2025 1 :04pm XRAY ORDER NEEDED May 12, 2025 1 2:40pm Reason for Visit Admit Date Acute cystitis without hematuria January 10:37pm Acute [...] Cirrhosis, alcoholic February 26, 2025 1: 58pm Dysphagia March 20, 2025 5: 44am Cirrhosis, alcoholic March 20, 2025 5 :44am Atherosclerotic heart diseas e of teller coronary artery without angina pectoris May 08, 2025 1:04pm Chest pain May 08, 2025 1 :04pm Essential hypertension May 08 1:04pm Hyperlipidemia May 08, 2025 1 :04pm SOB (shortness of breath) May 08, 2025 1:04pm Advance Directives No Advanced Directives Records Found Advance Directive Response Recorded Date/ Time Living Will Yes March 25 2:44pm Power of Linux System Administrator Yes March 25, 2022 2:44pm Advance Directives on File No Dominga [email or web address] 2:44pm Advance Directive Response Recorded Date/ Time Living Will Yes March 25 1:44pm Power of Linux System Administrator Yes March 25, 2022 1:44pm Advance Directive Response Recorded Date/ Time Name of Medical Power of Linux System Administrator son --Ye February 10th, 2023 3:31pm Living Will Yes September 02 2 023 3:31pm Power of Linux System Administrator Yes September 02, 2022 3:31pm Advance Directive Response Recorded Date/ Time Name of Medical Power of Linux System Administrator son --Ye September 02, 2022 4:31pm Living Will Yes 2022 1:35pm Power of Linux System Administrator Yes October 19 1:35pm Advance Directive Response Recorded Date/ Time Living Will Yes 2022 12:35pm Power of Linux System Administrator Yes October 19 12:35pm Advance Directive Response Recorded Date/ Time Living Will Yes August 23 3:18pm Power of Linux System Administrator Yes August 23, 2023 3:18pm Advance Directive Response Recorded Date/ Time Living Will Yes August 23 4:18pm Power of Linux System Administrator Yes August 23, 2023 4:18pm Advance Directive Response Recorded Date/ Time Living Will Yes July 18, 2 024 11:19am Power of Linux System Administrator Yes July 18, 2024 11:19am Name of Medical Power of Linux System Administrator jae matiasemeka guerrero July 18, 2024 11:19am Advance Directive Response Recorded Date/ Time Living Will Yes July 18, 2 024 11:19am Do you have a Healthcare Pow er of Linux System Administrator? Yes July 18, 2024 11:19am Name of Medical Power of Linux System Administrator jae [email or web address] [email or web address] July 18, 2024 11:19am Advance Directive Response Recorded Date/ Time Do you have a Healthcare Power of Linux System Administrator? No December 27, 2024 1:13pm Advance Directive Response Recorded Date/ Time Do you have a Healthcare Power of Linux System Administrator? No December 27, 2024 1:13pm Do you have a Healthcare Power of Linux System Administrator? Yes January 23, 2025 9:26pm Advance Directive Response Recorded Date/ Time Do you have a Healthcare Power of Linux System Administrator? No December 27, 2024 1:13pm Do you have a Healthcare Power of Linux System Administrator? Yes January 23, 2025 11:00pm Name of Medical Power of Linux System Administrator Jae Matiasfrancisco javier January 23, 2025 11:00pm Advance Directive Response Recorded Date/ Time Do you have a Healthcare Power of Linux System Administrator? No Amna 6th, 2025 1:13pm Do you have a Healthcare Power of Linux System Administrator? Yes January 23, 2025 11:00pm Name of Medical Power of Linux System Administrator Jae Matiasfrancisco javier January 23, 2025 11:00pm Do you have a Healthcare Power of Linux System Administrator? Yes March 18, 2025 11:59am Advance Directive Response Recorded Date/ Time Do you have a Healthcare Power of Linux System Administrator? Yes January 23, 2025 11:00pm Name of Medical Power of Linux System Administrator Jae Matiasfrancisco javier January 23, 2025 11:00pm Do you have a Healthcare Power of Linux System Administrator? Yes March 18, 2025 11:59am Family History No Family History Records Found Relationship Condition Age at Onset Recorded Date/T lacy mother Chronic obstructive pulmonary disease Unk nown Malignant neoplasm of lung Unknown father Cardiac disease Unknown Hypertension Unknown Myocardial infarction Unknown Summary Purpose Additional Source Comments Care Team (unrecognized sect ion and content) Clinical Abstractor Relationship Specialty Start Date End Date Valeriano Choe MD [address] [place] [address] PCP - General Family Practice 03/15/21 Clinical Abstractor Relationship Specialty Start Date End Date Valeriano Choe MD [facility] [place] [address] PCP - General Family Practice 03/15/21 Clinical Abstractor Relationship Specialty Start Date End Date Valeriano Choe MD [address] [place] [address] PCP - General Family Practice 03/15/21 Clinical Abstractor Relationship Specialty Start Date End Date Valeriano Choe MD [address] [place] [address] PCP - General Family Medicine 03/15/21 Clinical Abstractor Relationship Specialty Start Date End Date Valeriano Choe MD [facility] [place] [address] PCP - General Family Medicine 03/15/21 Clinical Abstractor Relationship Specialty Start Date End Date Valeriano Choe MD [facility] [place] [address] PCP - General Family Medicine 03/15/21 Clinical Abstractor Relationship Specialty Start Date End Date Valeriano Choe MD [address] [place] [address] PCP - General Family Medicine 03/15/21 Team Status: Active Member Role Status Dates Dr. Jerad Moss III, MD Family Provider Active Dr. Valeriano Choe MD Primary Care Provider Active Team Status: Active Member Role Status Dates Dr. Valeriano Choe MD Primary Care Provider Active Dr. Marino Holguin MD Emergency Provider Active Dr. Jael Ramos MD Admit Provider, Other Provider Active Dr. Ahmet Chacon DO Attending Provider Active Team Status: Active Member Role Status Dates Dr. Valeriano Choe MD Primary Care Provider Active Dr. Ahmet Chacon DO Attending Provider Active Team Status: Active Member Role Status Dates Dr. Valeriano Choe MD Primary Care Provider Active Dr. Lukas Cuevas MD Attending Provider Active Team Status: Active Member Role Status Dates Dr. Valeriano Choe MD Primary Care Provider Active Dr. Marino Holguin MD Emergency Provider Active Dr. Jael Ramos MD Admit Provider, Other Provider Active Dr. Melissa Corbin MD Other Provider Active Dr. Lukas Cuevas MD Attending Provider, Other Provide r Active Team Status: Active Member Role Status Dates Dr. Valeriano Choe MD Primary Care Provider Active Dr. Marino Holguin MD Emergency Provider Active Dr. Jael Ramos MD Admit Provider, Other Provider Active Dr. Melissa Corbin MD Other Provider Active Dr. Lukas Cuevas MD Other Provider Active Dr. Ahmet Chacon DO Attending Provider Active Team Status: Active Member Role Status Dates Dr. Valeriano Choe MD Primary Care Provider Active Dr. Marino Holguin MD Emergency Provider Active Dr. Jael Ramos MD Admit Provider, Other Provider Active Dr. Melissa Corbin MD Attending Provider, Other Prov ider Active Dr. Lukas Cuevas MD Other Provider Active Team Status: Active Member Role Status Dates Dr. Valeriano Choe MD Primary Care Provider Active Dr. Marino Holguin MD Emergency Provider Active Dr. Jael Ramos MD Admit Provider, Other Provider Active Dr. Lukas Cuevas MD Attending Provider, Other Provide r Active Dr. Obdulio Crespo MD Other Provider Active Dr. Melissa Corbin MD Other Provider Active Team Status: Active Member Role Status Dates Dr. Valeriano Choe MD Primary Care Provider Active Dr. Marino Holguin MD Emergency Provider Active Dr. Jael Ramos MD Admit Provider, Other Provider Active Dr. Lukas Cuevas MD Other Provider Active Dr. Melissa Corbin MD Other Provider Active Dr. Obdulio Crespo MD Attending Provider, Other Provider Active Team Status: Active Member Role Status Dates Dr. Valeriano Choe MD Primary Care Provider Active Dr. Marino Holguin MD Emergency Provider Active Dr. Jael Ramos MD Admit Provider, Other Provider Active Dr. Lukas Cuevas MD Other Provider Active Dr. Melissa Corbin MD Other Provider Active Dr. Obdulio Crespo MD Other Provider Active Dr. Ahmet Chacon DO Attending Provider Active Team Status: Active Member Role Status Dates Dr. Valeriano Choe MD Primary Care Provider Active Dr. Marino Holguin MD Emergency Provider Active Dr. Jael Ramos MD Admit Provider, Other Provider Active Dr. Lukas Cuevas MD Attending Provider, Other Provide r Active Dr. Melissa Corbin MD Other Provider Active Dr. Obdulio Crespo MD Other Provider Active Team Status: Active Member Role Status Dates Dr. Valeriano Choe MD Primary Care Provider Active Dr. Lukas Cuevas MD Attending Provider Active Dr. Jael Ramos MD Referring Provider Active Team Status: Inactive Member Role Status Dates Dr. Valeriano Choe MD Primary Care Provider Active Dr. Franklin Nicolas MD Attending Provider, Referring Pr ovider Active Team Status: Inactive Member Role Status Dates Dr. Valeriano Choe MD Primary Care Provider Active Dr. Franklin Nicolas MD Attending Provider, Referring Pr ovider Active Out of Town Doctor Active Team Status: Inactive Member Role Status Dates Dr. Valeriano Choe MD Primary Care Provider Active Dr. Marino Holguin MD Emergency Provider Active Dr. Jael Ramos MD Admit Provider, Other Provider Active Dr. Lukas Cuevas MD Other Provider Active Dr. Melissa Corbin MD Other Provider Active Dr. Obdulio Crespo MD Attending Provider Active Clinical Abstractor Relationship Specialty Start Date End Date Valeriano Choe MD [address] [facility] [place] [address] PCP - General Family Medicine 03/15/21 Clinical Abstractor Relationship Specialty Start Date End Date Valeriano Choe MD [address] [facility] [place] [address] PCP - General Family Medicine 03/15/21 Clinical Abstractor Relationship Specialty Start Date End Date Valeriano Choe MD [address] [place] [address] PCP - General Family Medicine 03/15/21 Clinical Abstractor Relationship Specialty Start Date End Date Valeriano Choe MD [address] [place] [address] PCP - General Family Medicine 03/15/21 Clinical Abstractor Relationship Specialty Start Date End Date Valeriano Choe MD [address] [place] [address] PCP - General Family Medicine 03/15/21 Clinical Abstractor Relationship Specialty Start Date End Date Valeriano Choe MD [address] [place] [address] PCP - General Family Medicine 03/15/21 Clinical Abstractor Relationship Specialty Start Date End Date Valeriano Choe MD [address] [place] [address] PCP - General Family Medicine 03/15/21 Team Status: Active Member Role Status Dates Dr. Valeriano Choe MD Primary Care Provider Active Dr. Marino Holguin MD Emergency Provider Active Dr. Jael Ramos MD Admit Provider, Other Provider Active Dr. Ahmet Chacon DO Attending Provider Active Dr. Obdulio Crespo MD Referring Provider Active Team Status: Active Member Role Status Dates Dr. Valeriano Choe MD Primary Care Provider Active Dr. Ahmet Chacon DO Attending Provider Active Dr. Obdulio Crespo MD Referring Provider Active Team Status: Active Member Role Status Dates Dr. Valeriano Choe MD Primary Care Provider Active Dr. Lukas Cuevas MD Attending Provider Active Dr. Melissa Corbin MD Referring Provider Active Team Status: Active Member Role Status Dates Dr. Vaelriano Choe MD Primary Care Provider Active Dr. Marino Holguin MD Emergency Provider Active Dr. Jael Ramos MD Admit Provider, Other Provider Active Dr. Melissa Corbin MD Other Provider Active Dr. Lukas Cuevas MD Other Provider Active Dr. Ahmet Chacon DO Attending Provider Active Dr. Obdulio Crespo MD Referring Provider Active Team Status: Active Member Role Status Dates Dr. Valeriano Choe MD Primary Care Provider Active Dr. Marino Holguin MD Emergency Provider Active Dr. Jael Ramos MD Admit Provider, Other Provider Active Dr. Lukas Cuevas MD Other Provider Active Dr. Melissa Corbin MD Other Provider Active Dr. Obdulio Crespo MD Referring Provider, Other Provider Active Dr. Ahmet Chacon DO Attending Provider Active Team Status: Active Member Role Status Dates Dr. Valeriano Choe MD Primary Care Provider Active Dr. Marino Holguin MD Emergency Provider Active Dr. Jael Ramos MD Admit Provider, Other Provider Active Dr. Lukas Cuevas MD Attending Provider, Referring Provider, Other Provider Active Dr. Melissa Corbin MD Other Provider Active Dr. Obdulio Crespo MD Other Provider Active Team Status: Active Member Role Status Dates Dr. Valeriano Choe MD Primary Care Provider Active Dr. Jorgito Moss MD Attending Provider Active Dr. Rizwana Hagen MD Referring Provider Active Team Status: Inactive Member Role Status Dates Dr. Valeriano Choe MD Primary Care Provider, Referri ng Provider Active Dr. Lukas Cuevas MD Attending Provider Active Team Status: Inactive Member Role Status Dates Dr. Valeriano Choe MD Primary Care Provider, Referri ng Provider Active Xochilt Casanova DIESEL ENGINE FITTER, DIESEL ENGINE FITTER-C Attending Provider Active Team Status: Active Member Role Status Dates Dr. Valeriano Choe MD Primary Care Provider Active Liz Navarro Attending Provider Active Team Status: Inactive Member Role Status Dates Dr. Valeriano Choe MD Primary Care Provider Active Xochilt Casanova DIESEL ENGINE FITTER, DIESEL ENGINE FITTER-C Attending Provider, Referrin g Provider Active Clinical Abstractor Relationship Specialty Start Date End Date Valeriano Choe MD [address] [place] [address] PCP - General Family Medicine 03/15/21 Clinical Abstractor Relationship Specialty Start Date End Date Valeriano Choe MD [address] [place] [address] PCP - General Family Medicine 03/15/21 Team Status: Active Member Role Status Dates Dr. Valeriano Choe MD Primary Care Pro vider, Referring Provider, Other Provider Active Dr. Jung Braun MD Attending Provider Active Team Status: Inactive Member Role Status Dates Dr. Valeriano Choe MD Primary Care Pro vider, Attending Provider, Referring Provider Active Clinical Abstractor Relationship Specialty Start Date End Date Valeriano Choe MD [address] [place] [address] PCP - General Family Medicine 03/15/21 Clinical Abstractor Relationship Specialty Start Date End Date Valeriano Choe MD [address] [place] [address] PCP - General Family Medicine 03/15/21 Clinical Abstractor Relationship Specialty Start Date End Date Valeriano Choe MD [address] [place] [address] PCP - General Family Medicine 03/15/21 Clinical Abstractor Relationship Specialty Start Date End Date Valeriano Choe MD [address] [place] [address] PCP - General Family Medicine 03/15/21 Clinical Abstractor Relationship Specialty Start Date End Date Valeriano Choe MD [address] [place] [address] PCP - General Family Medicine 03/15/21 Team Status: Inactive Member Role Status Dates Dr. Valeriano Choe MD Primary Care Provider, Referri ng Provider Active Estefany Thrasher DIESEL ENGINE FITTER, DIESEL ENGINE FITTER-C Attending Provider Active Team Status: Inactive Member Role Status Dates Dr. Valeriano Choe MD Primary Care Provider, Referri ng Provider Active Dr. José Miguel Valverde MD Attending Provider Active Team Status: Inactive Member Role Status Dates Dr. Valeriano Choe MD Primary Care Provider Active Dr. Lukas Cuevas MD Attending Provider Active Team Status: Inactive Member Role Status Dates Dr. Valeriano Choe MD Primary Care Provider Active Estefany Thrasher DIESEL ENGINE FITTER, DIESEL ENGINE FITTER-C Attending Provider, Milly bernardo Active Clinical Abstractor Relationship Specialty Start Date End Date Valeriano Choe MD [address] [place] [address] PCP - General Family Medicine 03/15/21 Team Status: Active Member Role Status Dates Dr. Valeriano Choe MD Primary Care Provider Active Dr. Alexi Jaime MD Attending Provider Active Team Status: Active Member Role Status Dates Dr. Valeriano Choe MD Primary Care Provider Active Estefany Thrasher DIESEL ENGINE FITTER, DIESEL ENGINE FITTER-C Attending Provider Active Clinical Abstractor Relationship Specialty Start Date End Date Valeriano Choe MD [address] [place] [address] PCP - General Family Medicine 03/15/21 Clinical Abstractor Relationship Specialty Start Date End Date Valeriano Choe MD [address] [place] [address] PCP - General Family Medicine 03/15/21 Clinical Abstractor Relationship Specialty Start Date End Date Valeriano Choe MD [address] [place] [address] PCP - General Family Medicine 03/15/21 Clinical Abstractor Relationship Specialty Start Date End Date Valeriano Choe MD [address] [place] [address] PCP - General Family Medicine 03/15/21 Clinical Abstractor Relationship Specialty Start Date End Date Valeriano Choe MD [address] [place] [address] PCP - General Family Medicine 03/15/21 Clinical Abstractor Relationship Specialty Start Date End Date Valeriano Choe MD [address] [place] [address] PCP - General Family Medicine 03/15/21 Clinical Abstractor Relationship Specialty Start Date End Date Valeriano Choe MD [address] [place] [address] PCP - General Family Medicine 03/15/21 Clinical Abstractor Relationship Specialty Start Date End Date Valeriano Choe MD [address] [place] [address] PCP - General Family Medicine 03/15/21 Clinical Abstractor Relationship Specialty Start Date End Date Valeriano Choe MD [address] [place] [address] PCP - General Family Medicine 03/15/21 Clinical Abstractor Relationship Specialty Start Date End Date Valeriano Choe MD [address] [place] [address] PCP - General Family Medicine 03/15/21 Clinical Abstractor Relationship Specialty Start Date End Date Valeriano Choe MD [address] [place] [address] PCP - General Family Medicine 03/15/21 Clinical Abstractor Relationship Specialty Start Date End Date Valeriano Choe MD [address] [place] [address] PCP - General Family Medicine 03/15/21 Clinical Abstractor Relationship Specialty Start Date End Date Valeriano Choe MD [address] [place] [address] PCP - General Family Medicine 03/15/21 Clinical Abstractor Relationship Specialty Start Date End Date Valeriano Choe MD [address] [place] [address] PCP - General Family Medicine 03/15/21 Clinical Abstractor Relationship Specialty Start Date End Date Valeriano Choe MD [address] [place] [address] PCP - General Family Medicine 03/15/21 Clinical Abstractor Relationship Specialty Start Date End Date Valeriano Choe MD [address] [place] [address] PCP - General Family Medicine 03/15/21 Ni Sauceda APRN.CNP [address] [place] [address] Hand Crocheter Family Medicine 06/29/24 Suzanna Dawson PA-C [address] [place] [address] Hand Crocheter Family Medicine 06/29/24 Clinical Abstractor Relationship Specialty Start Date End Date Valeriano Choe MD [address] [facility] [place] [address] PCP - General Family Medicine 03/15/21 Ni Sauceda, SUNIL.PATHOLOGY TECH [address] [place] [address] Hand Crocheter Family Medicine 06/29/24 Suzanna Dawson PA-C [address] [facility] [place] [address] Hand Crocheter Family Medicine 06/29/24 Clinical Abstractor Relationship Specialty Start Date End Date Valeriano Choe MD [address] [facility] [place] [address] PCP - General Family Medicine 03/15/21 Ni Sauceda, MEDICAL PLANNER.PATHOLOGY TECH [address] [place] [address] Hand Crocheter Family Medicine 06/29/24 Suzanna Dawson PA-C [address] [facility] [place] [address] Hand Crocheter Family Medicine 06/29/24 Clinical Abstractor Relationship Specialty Start Date End Date Valeriano Choe MD [address] [facility] [place] [address] PCP - General Family Medicine 03/15/21 Ni Sauceda, MEDICAL PLANNER.PATHOLOGY TECH [address] [place] [address] Hand Crocheter Family Medicine 06/29/24 Suzanna Dawson PA-C [address] [place] [address] Hand Crocheter Family Medicine 06/29/24 Clinical Abstractor Relationship Specialty Start Date End Date Valeriano Choe MD [address] [place] [address] PCP - General Family Medicine 03/15/21 Ni Sauceda APRN.PATHOLOGY TECH [address] [place] [address] Hand Crocheter Family Medicine 06/29/24 Suzanna Dawson PA-C [address] [place] [address] Hand Crocheter Family Medicine 06/29/24 Clinical Abstractor Relationship Specialty Start Date End Date Valeriano Choe MD [address] [place] [address] PCP - General Family Medicine 03/15/21 Ni Sauceda APRN.PATHOLOGY TECH [address] [place] [address] Hand Crocheter Family Medicine 06/29/24 Suzanna Dawson PA-C [address] [place] [address] Hand Crocheter Family Medicine 06/29/24 Clinical Abstractor Relationship Specialty Start Date End Date Valeriano Choe MD [address] [place] [address] PCP - General Family Medicine 03/15/21 Ni Sauceda, MEDICAL PLANNER.PATHOLOGY TECH [address] [place] [address] Hand Crocheter Family Medicine 06/29/24 Suzanna Dawson PA-C [address] [place] [address] [facility] 06/29/24 Clinical Abstractor Relationship Specialty Start Date End Date Valeriano Choe MD [address] [place] [address] PCP - General Family Medicine 03/15/21 Ni Sauceda APRN.PATHOLOGY TECH [address] [place] [address] [facility] 06/29/24 Suzanna Dawson PA-C [address] [place] [address] [facility] 06/29/24 Clinical Abstractor Relationship Specialty Start Date End Date Valeriano Choe MD [address] [place] [address] PCP - General Family Medicine 03/15/21 Ni Sauceda APRN.PATHOLOGY TECH [address] [place] [address] Hand Crocheter Family Medicine 06/29/24 Suzanna Dawson PA-C [address] [place] [address] [facility] Family Medicine 06/29/24 Clinical Abstractor Relationship Specialty Start Date End Date Valeriano Choe MD [address] [place] [address] PCP - General Family Medicine 03/15/21 Ni Sauceda APRN.PATHOLOGY TECH [address] [place] [address] Hand Crocheter Family Medicine 06/29/24 Suzanna Dawson PA-C [address] [place] [address] Hand Crocheter Family Medicine 06/29/24 Clinical Abstractor Relationship Specialty Start Date End Date Valeriano Choe MD [address] [place] [address] PCP - General Family Medicine 03/15/21 Ni Sauceda, SUNIL.PATHOLOGY TECH [address] [place] [address] Hand Crocheter Family Medicine 06/29/24 Suzanna Dawson PA-C [address] [place] [address] Hand Crocheter Family Medicine 06/29/24 Patria Butler Jr., MD [address] [place] [address] Neurology 09/25/24 Clinical Abstractor Relationship Specialty Start Date End Date Valeriano Choe MD [address] [place] [address] PCP - General Family Medicine 03/15/21 Ni Sauceda, MEDICAL PLANNER.PATHOLOGY TECH [facility] [place] [address] Hand Crocheter Family Medicine 06/29/24 Suzanna Dawson PA-C [address] [place] [address] [facility] Family Medicine 06/29/24 Patria Butler Jr., MD [address] [place] [address] Neurology 09/25/24 Team Status: Active Member Role Status Dates Dr. Valeriano Choe MD Primary Care Provider Active Team Status: Inactive Member Role Status Dates Dr. Valeriano Choe MD Primary Care Provider Active Start: July 18, 2024 End: July 18, 2024 Dr. Stan Gilbert DO Attending Provider Active Start: July 18, 2024 End: July 18, 2024 Dr. Stan Gilbert DO Emergency Provider Active Start: July 18, 2024 End: July 18, 2024 Team Status: Inactive Member Role Status Dates Dr. Valeriano Choe MD Primary Care Provider Active Start: September 06, 2024 End: September 06, 2024 Dr. Shubham Blanco MD Attending Provider Active Start: September 06, 2024 End: September 06, 2024 Dr. Shubham Blanco MD Referring Provider Active Start: September 06, 2024 End: September 06, 2024 Team Status: Inactive Member Role Status Dates Dr. Valeriano Choe MD Primary Care Provider Active Start: September 12, 2024 End: September 12, 2024 Dr. Shubham Blanco MD Attending Provider Active Start: September 12, 2024 End: September 12, 2024 Dr. Shubham Blanco MD Referring Provider Active Start: September 12, 2024 End: September 12, 2024 Team Status: Inactive Member Role Status Dates Dr. Valeriano Choe MD Primary Care Provider Active Start: September 19, 2024 End: September 19, 2024 Dr. Valeriano Choe MD Referring Provider Active Start: September 19, 2024 End: September 19, 2024 Dr. Shubham Blanco MD Attending Provider Active Start: September 19, 2024 End: September 19, 2024 Team Status: Inactive Member Role Status Dates Dr. Valeriano Choe MD Primary Care Provider Active Start: September 23, 2024 End: September 23, 2024 Dr. Geovani Barron MD Attending Provider Active Start: September 23, 2024 End: September 23, 2024 Dr. eGovani Barron MD Referring Provider Active Start: September 23, 2024 End: September 23, 2024 Team Status: Active Member Role Status Dates Dr. Valeriano Choe MD Primary Care Provider Active Start: September 26, 2024 Dr. Geovani Barron MD Attending Provider Active Start: September 26, 2024 Dr. Geovani Barron MD Referring Provider Active Start: September 26, 2024 Team Status: Inactive Member Role Status Dates Dr. Valeriano Choe MD Primary Care Provider Active Start: September 26, 2024 End: September 26, 2024 Dr. Geovani Barron MD Attending Provider Active Start: September 26, 2024 End: September 26, 2024 Dr. Geovani Barron MD Referring Provider Active Start: September 26, 2024 End: September 26, 2024 Team Status: Inactive Member Role Status Dates Dr. Valeriano Choe MD Primary Care Provider Active Start: October 11, 2024 End: October 11, 2024 Dr. Geovani Barron MD Attending Provider Active Start: October 11, 2024 End: October 11, 2024 Dr. Geovani Barron MD Referring Provider Active Start: October 11, 2024 End: October 11, 2024 Clinical Abstractor Relationship Specialty Start Date End Date Valeriano Choe MD [address] [place] [address] PCP - General Family Medicine 03/15/21 Ni Sauceda APRN.CNP [address] [place] [address] [phone] [facility] Family [facility] 06/29/24 Suzanna Dawson PA-C [address] [place] [address] [id number] [facility] Family Medicine 06/29/24 Patria Butler Jr., MD [address] [place] [address] [phone] Neurology 09/25/24 Clinical Abstractor Relationship Specialty Start Date End Date Valeriano Choe MD [address] [place] [address] PCP - General Family Medicine 03/15/21 Ni Sauceda APRN.PATHOLOGY TECH [address] [place] [address] Hand Crocheter Family Medicine 06/29/24 Suzanna Dawson PA-C [address] [place] [address] Hand Crocheter [facility] Medicine 06/29/24 Patria Butler Jr., MD [address] [place] [address] Neurology 09/25/24 Clinical Abstractor Relationship Specialty Start Date End Date Valeriano Choe MD [address] [place] [address] PCP - General Family Medicine 03/15/21 Ni Sauceda, SUNIL.PATHOLOGY TECH [facility] [place] [address] Hand Crocheter Family Medicine 06/29/24 Suzanna Dawson PA-C [address] [place] [address] Hand Crocheter Family Medicine 06/29/24 Patria Butler Jr., MD [facility] [place] [address] Neurology 09/25/24 Clinical Abstractor Relationship Specialty Start Date End Date Valeriano Choe MD [address] [place] [address] PCP - General Family Medicine 03/15/21 Ni Sauceda APRN.PATHOLOGY TECH [address] [place] [address] [facility]24 Suzanna Dawson PA-C [address] [place] [address] [facility] 06/29/24 Patria Butler Jr., MD [address] [place] [address] Neurology 09/25/24 Clinical Abstractor Relationship Specialty Start Date End Date Valeriano Choe MD [address] [place] [address] PCP - General Family Medicine 03/15/21 Ni Sauceda APRN.PATHOLOGY TECH [address] [place] [address] [facility] 06/29/24 Suzanna Dawson PA-C [address] [place] [address] [facility] 06/29/24 Patria Butler Jr., MD [facility] [place] [address] Neurology 09/25/24 Clinical Abstractor Relationship Specialty Start Date End Date Valeriano Choe MD [address] [place] [address] PCP - General Family Medicine 03/15/21 Ni Sauceda APRN.PATHOLOGY TECH [address] [place] [address] [phone] [facility] 06/29/24 Suzanna Dawson PA-C [address] [place] [address] [phone] [facility] 06/29/24 Patria Butler Jr., MD [address] [place] [address] [id number] Neurology 09/25/24 Team Status: Inactive Member Role Status Dates Dr. Valeriano Choe MD Primary Care Provider Active Start: November 05, 2024 End: November 05, 2024 Dr. Valeriano Choe MD Referring Provider Active Start: November 05, 2024 End: November 05, 2024 Estefany Thrasher NP, DIESEL ENGINE FITTER-C Attending Provider Active Start: November 05, 2024 End: November 05, 2024 Team Status: Inactive Member Role Status Dates Dr. Valeriano Choe MD Primary Care Provider Active Start: November 05, 2024 End: November 05, 2024 Dr. Shubham Blanco MD Attending Provider Active Start: November 05, 2024 End: November 05, 2024 Dr. Shubham Blanco MD Referring Provider Active Start: November 05, 2024 End: November 05, 2024 Clinical Abstractor Relationship Specialty Start Date End Date Valeriano Choe MD [address] [place] [address] [id number] PCP - General Family Medicine 03/15/21 Ni Sauceda, MEDICAL PLANNER.PATHOLOGY TECH [address] [place] [address] [phone] [facility] 06/29/24 Suzanna Daswon PA-C [address] [place] [address] [phone] [facility] Family Medicine 06/29/24 Patria Butler Jr., MD [facility] [place] [address] Neurology 09/25/24 Clinical Abstractor Relationship Specialty Start Date End Date Valeriano Choe MD [address] [place] [address] PCP - General Family Medicine 03/15/21 Patria Butler Jr., MD [address] [place] [address] Neurology 09/25/24 Ni Sauceda APRN.PATHOLOGY TECH [address] [place] [address] [facility] 12/23/24 Suzanna Dawson PA-C [address] [place] [address] [facility] 12/23/24 Clinical Abstractor Relationship Specialty Start Date End Date Valeriano Choe MD [address] [place] [address] PCP - General Family Medicine 03/15/21 Patria Butler Jr., MD [address] [place] [address] Neurology 09/25/24 Ni Sauceda APRN.PATHOLOGY TECH [address] [place] [address] Hand Crocheter Family Medicine 12/23/24 Suzanna Dawson PA-C [address] [place] [address], [place] [address] Hand [facility] Family Medicine 12/23/24 Team Status: Active Member Role Status Dates Dr. Valeriano Choe MD Primary Care Provider Active Start: December 27, 2024 Dr. Marino Holguin MD Emergency Provider Active Sta rt: December 27, 2024 Dr. Flakita Florentino DO Admit Provider Active Start : December 27, 2024 Dr. Flakita Florentino DO Attending Provider Active S tart: December 27, 2024 Team Status: Active Member Role Status Dates Dr. Valeriano Choe MD Primary Care Provider Active Start: December 27, 2024 Dr. Marino Holguin MD Emergency Provider Active Sta rt: December 27, 2024 Dr. Flakita Florentino DO Attending Provider Active S tart: December 27, 2024 Team Status: Inactive Member Role Status Dates Dr. Valeriano Choe MD Primary Care Provider Active Start: December [...] 2024 End: December 30, 2024 Dr. Homer Meng DO Other Provider Active Start : December [...] Active Member Role Status Dates Dr. Valeriano Choe MD Primary Care Provider Active Start: December [...] Star t: December 28, 2024 Dr. Homer Meng , Other Provider Active Start : December [...] Provider Active Start: December 28, 2024 Dr. Jmi Marin MD Other Provider Active Start : [...] Start: December 28, 2024 Dr. Alexi Olivas , Other Provider Active Star t: December 28, 2024 Team Status: Active Member Role Status Dates Dr. Valeriano Choe MD Primary Care Provider Active Start: December 29, 2024 Dr. Marino Holguin MD Emergency Provider Active Sta rt: December 29, 2024 Dr. Flakita Florentino DO Admit Provider Active Start : December 29, 2024 Dr. Flakita Florentino , Other Provider Active Start : December 29, 2024 Dr. Tony Shultz MD Other Provider Active Start: December 29, 2024 Dr. Ej Murguia MD Other Provider Active Start: December 29, 2024 Dr. Ricci Ballesteros MD Other Provider Active Star t: December 29, 2024 Dr. Homer Meng , Other Provider Active Start : December 29, [...] Active Member Role Status Dates Dr. Valeriano Choe MD Primary Care Provider Active Start: December [...] Star t: December 30, 2024 Dr. Homer Meng DO Attending Provider Active S tart: December 30, 2024 Dr. Homer Meng DO Other Provider Active Start : December [...] Active Member Role Status Dates Dr. Valeriano Choe MD Primary Care Provider Active Start: December [...] Star t: December 30, 2024 Dr. Homer Meng DO Other Provider Active Start : December [...] Provider Active Star t: December 30, 2024 Clinical Abstractor Relationship Specialty Start Date End Date Valeriano Choe MD [facility] [place] [address] PCP - General Family Medicine 03/15/21 Patria Butler Jr., MD [address] [place] [address] [id number] Neurology 09/25/24 Ni Sauceda APRN.PATHOLOGY TECH [facility] [place], [place] [phone] [facility] Medicine 12/23/24 Suzanna Dawson PA-C [address] [place], [place] [phone] [facility] 12/23/24 Clinical Abstractor Relationship Specialty Start Date End Date Valeriano Choe MD [address] [place] [address] PCP - General Family Medicine 03/15/21 Ni Sauceda APRN.PATHOLOGY TECH [address] [place] [address] Hand Crocheter Family [facility] 06/29/24 12/08/24 Suzanna Dawson PA-C [address] [place] [address] [facility] 06/29/24 12/22/24 Patria Butler Jr., MD [address] [place] [address] Neurology 09/25/24 Ni Sauceda APRN.PATHOLOGY TECH [address] [place] [address] [facility] 12/23/24 Suzanna Dawson PA-C [address] [place] [address] [facility] 12/23/24 Clinical Abstractor Relationship Specialty Start Date End Date Valeriano Choe MD [address] [place] [address] PCP - General Family Medicine 03/15/21 Ni Sauceda APRN.PATHOLOGY TECH [address] [place] [address] Hand Crocheter Family Medicine 06/29/24 12/08/24 Suzanna Dawson PA-C [address] [place], [place] 275911 Hand Crocheter Family Medicine 06/29/24 12/22/24 Patria Butler Jr., MD [address] [place] [address] Neurology 09/25/24 Ni Sauceda APRN.PATHOLOGY TECH [address] [place] [address] [phone] Hand Crocheter Family Medicine 12/23/24 Suzanna Dawson PA-C [address] [place] [phone] [facility] 12/23/24 Clinical Abstractor Relationship Specialty Start Date End Date Valeriano Choe MD [address] [place] [address] [phone] PCP - General Family Medicine 03/15/21 Patria Butler Jr., MD [address] [place] [address] [id number] Neurology 09/25/24 Ni Sauceda APRN.PATHOLOGY TECH [address] [place] [address] 203091 Hand Crocheter Family Medicine 12/23/24 Suzanna Dawson PA-C [address] [place] [address] [id number] [facility] Family Medicine 12/23/24 Team Status: Active Member Role/Relationship Status Dates Dr. Valeriano Choe MD Primary Care Provider Active Team Status: Inactive Member Role/Relationship Status Dates Dr. Valeriano Choe MD Primary Care Provider Active Start: September 26, 2024 End: September 26, 2024 Dr. Geovani Barron MD Attending Provider Active Start: September 26, 2024 End: September 26, 2024 Dr. Goevani Barron MD Referring Provider Active Start: September 26, 2024 End: September 26, 2024 Team Status: Inactive Member Role/Relationship Status Dates Dr. Valeriano Choe MD Primary Care Provider Active Start: October 11, 2024 End: October 11, 2024 Dr. Geovani Barron MD Attending Provider Active Start: October 11, 2024 End: October 11, 2024 Dr. Geovani Barron MD Referring Provider Active Start: October 11, 2024 End: October 11, 2024 Team Status: Inactive Member Role/Relationship Status Dates Dr. Valeriano Choe MD Primary Care Provider Active Start: November 05, 2024 End: November 05, 2024 Dr. Valeriano Choe MD Referring Provider Active Start: November 05, 2024 End: November 05, 2024 Estefany Thrasher DIESEL ENGINE FITTER, DIESEL ENGINE FITTER-C Attending Provider Active Start: November 05, 2024 End: November 05, 2024 Team Status: Inactive Member Role/Relationship Status Dates Dr. Valeriano Choe MD Primary Care Provider Active Start: November 05, 2024 End: November 05, 2024 Dr. Shubham Blanco MD Attending Provider Active Start: November 05, 2024 End: November 05, 2024 Dr. Shubham Blanco MD Referring Provider Active Start: November 05, 2024 End: November 05, 2024 Team Status: Inactive Member Role/Relationship Status Dates Dr. Valeriano Choe MD Primary Care Provider Active Start: December [...] 2024 End: December 30, 2024 Dr. Homer Meng DO Other Provider Active Start : December [...] Active Member Role/Relationship Status Dates Dr. Valeriano Choe MD Primary Care Provider Active Start: December 27, 2024 Dr. Marino Holguin MD Emergency Provider Active Sta rt: December 27, 2024 Dr. Flakita Florentino DO Attending Provider Active S tart: December 27, 2024 Team Status: Active Member Role/Relationship Status Dates Dr. Valeriano Choe MD Primary Care Provider Active Start: December [...] Star t: December 28, 2024 Dr. Homer Meng DO Other Provider Active Start : December [...] Active Member Role/Relationship Status Dates Dr. Valeriano Choe MD Primary Care Provider Active Start: December [...] Star t: December 29, 2024 Dr. Homer Meng DO Other Provider Active Start : December [...] Active Member Role/Relationship Status Dates Dr. Valeriano Choe MD Primary Care Provider Active Start: December [...] Star t: December 30, 2024 Dr. Homer Meng DO Attending Provider Active S tart: December 30, 2024 Dr. Homer Meng DO Other Provider Active Start : December [...] Active Member Role/Relationship Status Dates Dr. Valeriano Choe MD Primary Care Provider Active Start: December [...] Star t: December 30, 2024 Dr. Homer Meng DO Other Provider Active Start : December 30, 2024 Dr. Tessa Ty MD Other Provider Active Sta rt: December 30, 2024 Dr. Join Garsia MD Other Provider Active St art: [...] Active Member Role/Relationship Status Dates Dr. Valeriano Choe MD Primary Care Provider Active Start: January 23, 2025 Dr. Jae Mcclure MD Emergency Provider Active S tart: January 23, 2025 Dr. Tessa Hampton DO Admit Provider Active Start: January 23, 2025 Dr. Tessa Hampton DO Attending Provider Active Start: January 23, 2025 Team Status: Inactive Member Role/Relationship Status Dates Dr. Valeriano Choe MD Primary Care Provider Active Start: October 11, 2024 End: October 11, 2024 Dr. Geovani Barron MD Attending Provider Active Start: October 11, 2024 End: October 11, 2024 Dr. Geovani Barron MD Referring Provider Active Start: October 11, 2024 End: October 11, 2024 Team Status: Inactive Member Role/Relationship Status Dates Dr. Valeriano Choe MD Primary Care Provider Active Start: November 05, 2024 End: November 05, 2024 Dr. Valeriano Choe MD Referring Provider Active Start: November 05, 2024 End: November 05, 2024 Estefany Thrasher DIESEL ENGINE FITTER, DIESEL ENGINE FITTER-C Attending Provider Active Start: November 05, 2024 End: November 05, 2024 Team Status: Inactive Member Role/Relationship Status Dates Dr. Valeriano Choe MD Primary Care Provider Active Start: November 05, 2024 End: November 05, 2024 Dr. Shubham Blanco MD Attending Provider Active Start: November 05, 2024 End: November 05, 2024 Dr. Shubham Blanco MD Referring Provider Active Start: November 05, 2024 End: November 05, 2024 Team Status: Inactive Member Role/Relationship Status Dates Dr. Valeriano Choe MD Primary Care Provider Active Start: December [...] 2024 End: December 30, 2024 Dr. Homer Meng DO Other Provider Active Start : December [...] Active Member Role/Relationship Status Dates Dr. Valeriano Choe MD Primary Care Provider Active Start: December 27, 2024 Dr. Marino Holguin MD Emergency Provider Active Sta rt: December 27, 2024 Dr. Flakita Florentino DO Attending Provider Active S tart: December 27, 2024 Team Status: Active Member Role/Relationship Status Dates Dr. Valeriano Choe MD Primary Care Provider Active Start: December [...] Star t: December 28, 2024 Dr. Homer Meng DO Other Provider Active Start : December [...] Active Start: December 28, 2024 Dr. Jim aMrin MD Other Provider Active Start : December [...] Active Member Role/Relationship Status Dates Dr. Valeriano Choe MD Primary Care Provider Active Start: December [...] Star t: December 29, 2024 Dr. Homer Meng DO Other Provider Active Start : December [...] Active Member Role/Relationship Status Dates Dr. Valeriano Choe MD Primary Care Provider Active Start: December [...] Star t: December 30, 2024 Dr. Homer Meng DO Attending Provider Active S tart: December 30, 2024 Dr. Homer Meng , Other Provider Active Start : December [...] Active Member Role/Relationship Status Dates Dr. Valeriano Choe MD Primary Care Provider Active Start: December 30, 2024 Dr. Marino Holguin MD Emergency Provider Active Sta rt: December 30, 2024 Dr. Flakita lForentino DO Admit Provider Active Start : December 30, 2024 Dr. Flakita Florentino DO Other Provider Active Start : December 30, 2024 Dr. Tony Shultz MD Other Provider Active Start: December 30, 2024 Dr. Ej Murguia MD Other Provider Active Start: December 30, 2024 Dr. Ricci Ballesteros MD Other Provider Active Star t: December 30, 2024 Dr. Homer Meng DO Other Provider Active Start : December [...] Inactive Member Role/Relationship Status Dates Dr. Valeriano Choe MD Primary Care Provider Active Start: January [...] Active Member Role/Relationship Status Dates Dr. Valeriano Choe MD Primary Care Provider Active Start: January [...] Active Member Role/Relationship Status Dates Dr. Valeriano Choe MD Primary Care Provider Active Start: January [...] Provider Active Sta rt: January 25, 2025 Clinical Abstractor Relationship Specialty Start Date End Date Valeriano Choe MD [address] [place] [address] PCP - General Family Medicine 03/15/21 Patria Butelr Jr., MD [address] [place] [address] [id number] Neurology 09/25/24 Ni Sauceda, SUNIL.PATHOLOGY TECH [address] [place] [address] [id number] Hand Crocheter Family Medicine 12/23/24 Suzanna Dawson PA-C [address] [place] [address] [id number] [facility] 12/23/24 Team Status: Inactive Member Role/Relationship Status Dates Dr. Valeriano Choe MD Primary Care Provider Active Start: January 29, 2025 End: January 29, 2025 Dr. Valeriano Choe MD Referring Provider Active Start: January 29, 2025 End: January 29, 2025 Ping Lucas NP-C Attending Provider Active Start: January 29, 2025 End: January 29, 2025 Clinical Abstractor Relationship Specialty Start Date End Date Valeriano Choe MD [address] [place] [address] [id number] PCP - General Family Medicine 03/15/21 Patria Butler Jr., MD [address] [place] [address] [id number] Neurology 09/25/24 Ni Sauceda, SUNIL.PATHOLOGY TECH [address] [place] [address] [phone] [facility] Medicine 12/23/24 Suzanna Dawson PA-C [address] [place] [address] [id number] [facility] Family Medicine 12/23/24 Clinical Abstractor Relationship Specialty Start Date End Date Valeriano Choe MD [address] [place] [address] PCP - General Family Medicine 03/15/21 Patria Butler Jr., MD [address] [place] [address] [id number] Neurology 09/25/24 Ni Sauceda, MEDICAL PLANNER.PATHOLOGY TECH [address] [place] [address] [id number] Hand Croche[facility] Family Medicine 12/23/24 Suzanna Dawson PA-C [address] [place] [address] [id number] Hand Croche[facility] Family Medicine 12/23/24 Clinical Abstractor Relationship Specialty Start Date End Date Valeriano Choe MD [address] [place] [address] [id number] PCP - General Family Medicine 03/15/21 Patria Butler Jr., MD [address] [place] [address] [id number] Neurology 09/25/24 Ni Sauceda, MEDICAL PLANNER.PATHOLOGY TECH [address] [place] [address] [id number] Hand Crocheter Family Medicine 12/23/24 Suzanna Dawson PA-C [facility] [place], [place] [id number] [phone] Hand Crocheter Family Medicine 12/23/24 Team Status: Inactive Member Role/Relationship Status Dates Dr. Valeriano Choe MD Primary Care Provider Active Start: November 05, 2024 End: November 05, 2024 Dr. Valeriano Choe MD Referring Provider Active Start: November 05, 2024 End: November 05, 2024 Estefany Thrasher DIESEL ENGINE FITTER, DIESEL ENGINE FITTER-C Attending Provider Active Start: November 05, 2024 End: November 05, 2024 Team Status: Inactive Member Role/Relationship Status Dates Dr. Valeriano Choe MD Primary Care Provider Active Start: November 05, 2024 End: November 05, 2024 Dr. Shubham Blanco MD Attending Provider Active Start: November 05, 2024 End: November 05, 2024 Dr. Shubham Blanco MD Referring Provider Active Start: November 05, 2024 End: November 05, 2024 Team Status: Inactive Member Role/Relationship Status Dates Dr. Valeriano Choe MD Primary Care Provider Active Start: December [...] 2024 End: December 30, 2024 Dr. Homer Meng DO Other Provider Active Start : December [...] Active Member Role/Relationship Status Dates Dr. Valeriano Choe MD Primary Care Provider Active Start: December 27, 2024 Dr. Marino Holguin MD Emergency Provider Active Sta rt: December 27, 2024 Dr. Flakita Florentino DO Attending Provider Active S tart: December 27, 2024 Team Status: Active Member Role/Relationship Status Dates Dr. Valeriano Choe MD Primary Care Provider Active Start: December 28, 2024 Dr. Marino Holguin MD Emergency Provider Active Sta rt: December 28, 2024 Dr. Flakita Florentino DO Admit Provider Active Start : December 28, 2024 Dr. Flakita Florentino , Other Provider Active Start : December 28, 2024 Dr. Tony Shultz MD Other Provider Active Start: December 28, 2024 Dr. Ej Murguia MD Other Provider Active Start: December 28, 2024 Dr. Ricci Ballesteros MD Other Provider Active Star t: December 28, 2024 Dr. Homer Meng DO Other Provider Active Start : December [...] Active Member Role/Relationship Status Dates Dr. Valeriano Choe MD Primary Care Provider Active Start: December [...] Star t: December 29, 2024 Dr. Homer Meng DO Other Provider Active Start : December [...] Active Member Role/Relationship Status Dates Dr. Valeriano Choe MD Primary Care Provider Active Start: December [...] Star t: December 30, 2024 Dr. Homer Meng DO Attending Provider Active S tart: December 30, 2024 Dr. Homer Meng DO Other Provider Active Start : December [...] Active Member Role/Relationship Status Dates Dr. Valeriano Choe MD Primary Care Provider Active Start: December [...] Star t: December 30, 2024 Dr. Homer Meng DO Other Provider Active Start : December [...] Inactive Member Role/Relationship Status Dates Dr. Valeriano Choe MD Primary Care Provider Active Start: January [...] Active Member Role/Relationship Status Dates Dr. Valeriano Choe MD Primary Care Provider Active Start: January [...] Active Member Role/Relationship Status Dates Dr. Valeriano Choe MD Primary Care Provider Active Start: January [...] Inactive Member Role/Relationship Status Dates Dr. Valeriano Choe MD Primary Care Provider Active Start: January 29, 2025 End: January 29, 2025 Dr. Valeriano Choe MD Referring Provider Active Start: January 29, 2025 End: January 29, 2025 FAUSTO Britt Attending Provider Active Start: January 29, 2025 End: January 29, 2025 Team Status: Inactive Member Role/Relationship Status Dates Dr. Valeriano Choe MD Primary Care Provider Active Start: February 07, 2025 End: February 07, 2025 Dr. Shubham Blanco MD Attending Provider Active Start: February 07, 2025 End: February 07, 2025 Dr. Shubham Blanco MD Referring Provider Active Start: February 07, 2025 End: February 07, 2025 Team Status: Active Member Role/Relationship Status Dates Dr. Valeriano Choe MD Primary Care Provider Active Start: February 25, 2025 Ashley Radford Attending Provider Active Start : February 25, 2025 Ashley Rdaford Referring Provider Active Start : February 25, 2025 Team Status: Inactive Member Role/Relationship Status Dates Dr. Valeriano Choe MD Primary Care Provider Active Start: February 26, 2025 End: February 26, 2025 Dr. Valeriano Choe MD Referring Provider Active Start: February 26, 2025 End: February 26, 2025 Dr. Shubham Blanco MD Attending Provider Active Start: February 26, 2025 End: February 26, 2025 Team Status: Inactive Member Role/Relationship Status Dates Dr. Valeriano Choe MD Primary Care Provider Active Start: February 25, 2025 End: February 25, 2025 Ashley Radford Attending Provider Active Start : February 25, 2025 End: February 25, 2025 Ashley Parksing Referring Provider Active Start : February 25, 2025 End: February 25, 2025 Team Status: Inactive Member Role/Relationship Status Dates Dr. Valeriano Choe MD Primary Care Provider Active Start: December [...] 2024 End: December 30, 2024 Dr. Homer Meng DO Other Provider Active Start : December [...] Active Member Role/Relationship Status Dates Dr. Valeriano Choe MD Primary Care Provider Active Start: December 27, 2024 Dr. Marino Holguin MD Emergency Provider Active Sta rt: December 27, 2024 Dr. Flakita Florentino DO Attending Provider Active S tart: December 27, 2024 Team Status: Active Member Role/Relationship Status Dates Dr. Valeriano Choe MD Primary Care Provider Active Start: December [...] Star t: December 28, 2024 Dr. Homer Meng DO Other Provider Active Start : December [...] Start: December 28, 2024 Dr. Alexi Olivas , Other Provider Active Star t: December 28, 2024 Team Status: Active Member Role/Relationship Status Dates Dr. Valeriano Choe MD Primary Care Provider Active Start: December 29, 2024 Dr. Marino Holguin MD Emergency Provider Active Sta rt: December 29, 2024 Dr. Flakita Florentino DO Admit Provider Active Start : December 29, 2024 Dr. Flakita Florentino , Other Provider Active Start : December 29, 2024 Dr. Tony Shultz MD Other Provider Active Start: December 29, 2024 Dr. Ej Murguia MD Other Provider Active Start: December 29, 2024 Dr. Ricci Ballesteros MD Other Provider Active Star t: December 29, 2024 Dr. Homer Meng , Other Provider Active Start : December 29, [...] Active Member Role/Relationship Status Dates Dr. Valeriano Choe MD Primary Care Provider Active Start: December [...] Star t: December 30, 2024 Dr. Homer Meng DO Attending Provider Active S tart: December 30, 2024 Dr. Homer Meng DO Other Provider Active Start : December [...] Active Member Role/Relationship Status Dates Dr. Valeriano Choe MD Primary Care Provider Active Start: December [...] Star t: December 30, 2024 Dr. Homer Meng DO Other Provider Active Start : December [...] Inactive Member Role/Relationship Status Dates Dr. Valeriano Choe MD Primary Care Provider Active Start: January [...] Active Member Role/Relationship Status Dates Dr. Valeriano Choe MD Primary Care Provider Active Start: January [...] Active Member Role/Relationship Status Dates Dr. Valeriano Choe MD Primary Care Provider Active Start: January [...] Inactive Member Role/Relationship Status Dates Dr. Valeriano Choe MD Primary Care Provider Active Start: January 29, 2025 End: January 29, 2025 Dr. Valeriano Choe MD Referring Provider Active Start: January 29, 2025 End: January 29, 2025 FAUSTO Britt Attending Provider Active Start: January 29, 2025 End: January 29, 2025 Team Status: Inactive Member Role/Relationship Status Dates Dr. Valeriano Choe MD Primary Care Provider Active Start: February 07, 2025 End: February 07, 2025 Dr. Shubham Blanco MD Attending Provider Active Start: February 07, 2025 End: February 07, 2025 Dr. Shubham Blanco MD Referring Provider Active Start: February 07, 2025 End: February 07, 2025 Team Status: Inactive Member Role/Relationship Status Dates Dr. Valeriano Choe MD Primary Care Provider Active Start: February 25, 2025 End: February 25, 2025 Ashley Radford Attending Provider Active Start : February 25, 2025 End: February 25, 2025 Ashley Winfred Referring Provider Active Start : February 25, 2025 End: February 25, 2025 Team Status: Inactive Member Role/Relationship Status Dates Dr. Valeriano Choe MD Primary Care Provider Active Start: February 26, 2025 End: February 26, 2025 Dr. Valeriano Choe MD Referring Provider Active Start: February 26, 2025 End: February 26, 2025 Dr. Shubham Blanco MD Attending Provider Active Start: February 26, 2025 End: February 26, 2025 Team Status: Inactive Member Role/Relationship Status Dates Dr. Valeriano Choe MD Primary Care Provider Active Start: March 10, 2025 End: March 10, 2025 Dr. Shubham Blanco MD Attending Provider Active Start: March 10, 2025 End: March 10, 2025 Dr. Shubham Blanco MD Referring Provider Active Start: March 10, 2025 End: March 10, 2025 Team Status: Inactive Member Role/Relationship Status Dates Dr. Valeriano Choe MD Primary Care Provider Active Start: March 20, 2025 End: March 20, 2025 Dr. Valeriano Choe MD Referring Provider Active Start: March 20, 2025 End: March 20, 2025 Dr. Ahmet Chacon DO Attending Provider Active Start: March 20, 2025 End: March 20, 2025 Team Status: Active Member Role/Relationship Status Dates Dr. Valeriano Choe MD Primary Care Provider Active Start: March 20, 2025 Dr. Valeriano Choe MD Referring Provider Active Start: March 20, 2025 Dr. Ahmet Chacon DO Attending Provider Active Start: March 20, 2025 Dr. Ahmet Chacon DO Other Provider Active St art: March 20, 2025 Team Status: Active Member Role/Relationship Status Dates Dr. Valeriano Choe MD Primary care physician Active Team Status: Inactive Member Role/Relationship Status Dates Dr. Valeriano Choe MD Primary care physician Active Start: January 23, 2025 End: January 25, 2025 Dr. Jae Mcclure MD Emergency Department Physician Ac tive Start: January 23, 2025 End: January 25, 2025 Dr. Tessa Hampton DO Admitting physician Active Start: January 23, 2025 End: January 25, 2025 Dr. Tessa Hampton DO Nurse Practitioner Active Start: January 23, 2025 End: January 25, 2025 Dr. Shubham Blanco MD Attending physician Active Start: January 23, 2025 End: January 25, 2025 Team Status: Active Member Role/Relationship Status Dates Dr. Valeriano Choe MD Primary care physician Active Start: January 24, 2025 Dr. Jae Mcclure MD Emergency Department Physician Ac tive Start: January 24, 2025 Dr. Tessa Hampton DO Admitting physician Active Start: January 24, 2025 Dr. Tessa Hampton DO Nurse Practitioner Active Start: January 24, 2025 Dr. Shubham Blanco MD Attending physician Active Start: January 24, 2025 Dr. Shubham Blanco MD Nurse Practitioner Active Start: January 24, 2025 Team Status: Active Member Role/Relationship Status Dates Dr. Valeriano Choe MD Primary care physician Active Start: January 25, 2025 Dr. Jae Mcclure MD Emergency Department Physician Ac tive Start: January 25, 2025 Dr. Tessa Hampton DO Admitting physician Active Start: January 25, 2025 Dr. Tessa Hampton DO Nurse Practitioner Active Start: January 25, 2025 Dr. Shubham Blanco MD Attending physician Active Start: January 25, 2025 Dr. Shubham Blanco MD Nurse Practitioner Active Start: January 25, 2025 Team Status: Inactive Member Role/Relationship Status Dates Dr. Valeriano Choe MD Primary care physician Active Start: January 29, 2025 End: January 29, 2025 Dr. Valeriano Choe MD Referring Provider Active Start: January 29, 2025 End: January 29, 2025 FAUSTO Britt Attending physician Active Start: January 29, 2025 End: January 29, 2025 Team Status: Inactive Member Role/Relationship Status Dates Dr. Valeriano Choe MD Primary care physician Active Start: February 07, 2025 End: February 07, 2025 Dr. Shubham Blanco MD Attending physician Active Start: February 07, 2025 End: February 07, 2025 Dr. Shubham Blanco MD Referring Provider Active Start: February 07, 2025 End: February 07, 2025 Team Status: Inactive Member Role/Relationship Status Dates Dr. Valeriano Choe MD Primary care physician Active Start: February 25, 2025 End: February 25, 2025 Ashley Radford Attending physician Active Star t: February 25, 2025 End: February 25, 2025 Ashley Parksing Referring Provider Active Start : February 25, 2025 End: February 25, 2025 Team Status: Inactive Member Role/Relationship Status Dates Dr. Valeriano Choe MD Primary care physician Active Start: February 26, 2025 End: February 26, 2025 Dr. Valeriano Choe MD Referring Provider Active Start: February 26, 2025 End: February 26, 2025 Dr. Shubham Blanco MD Attending physician Active Start: February 26, 2025 End: February 26, 2025 Team Status: Inactive Member Role/Relationship Status Dates Dr. Valeriano Choe MD Primary care physician Active Start: March 10, 2025 End: March 10, 2025 Dr. Shubham Blanco MD Attending physician Active Start: March 10, 2025 End: March 10, 2025 Dr. Shubham Blanco MD Referring Provider Active Start: March 10, 2025 End: March 10, 2025 Team Status: Inactive Member Role/Relationship Status Dates Dr. Valeriano Choe MD Primary care physician Active Start: March 20, 2025 End: March 20, 2025 Dr. Valeriano Choe MD Referring Provider Active Start: March 20, 2025 End: March 20, 2025 Dr. Ahmet Chacon DO Attending physician Active Start: March 20, 2025 End: March 20, 2025 Team Status: Active Member Role/Relationship Status Dates Dr. Valeriano Choe MD Primary care physician Active Start: March 20, 2025 Dr. Valeriano Choe MD Referring Provider Active Start: March 20, 2025 Dr. Ahmet Chacon DO Attending physician Active Start: March 20, 2025 Dr. Ahmet Chacon DO Nurse Practitioner Active Start: March 20, 2025 Team Status: Inactive Member Role/Relationship Status Dates Dr. Valeriano Choe MD Primary care physician Active Start: May 08, 2025 End: May 08, 2025 Dr. Valeriano Choe MD Referring Provider Active Start: May 08, 2025 End: May 08, 2025 Estefany Thrasher DIESEL ENGINE FITTER, DIESEL ENGINE FITTER-C Attending physician Active Start: May 08, 2025 End: May 08, 2025 Team Status: Inactive Member Role/Relationship Status Dates Dr. Valeriano Choe MD Primary care physician Active Start: May 12, 2025 End: May 12, 2025 Dr. Geovani Barron MD Attending physician Active Start: May 12, 2025 End: May 12, 2025 Dr. Geovani Barron MD Referring Provider Active Start: May 12, 2025 End: May 12, 2025 Source Comments (unrecognize d section and content) In the event this informatio n is protected by the Federal Confidentiality of Alcohol and Drug Abuse Patient Records regulations: The Federal rules restrict any use of the information to criminally investigate or prosecute any alcohol or drug abuse patient.[facility] the event this information is protected by the Federal Confidentiality of Alcohol and Drug Abuse Patient Records regulations: The Federal rules restrict any use of the information to criminally investigate or prosecute any alcohol or drug abuse patient.[facility] the event this information is protected by the Federal Confidentiality of Alcohol and Drug Abuse Patient Records regulations: The Federal rules restrict any use of the information to criminally investigate or prosecute any alcohol or drug abuse patient.[facility] the event this information is protected by the Federal Confidentiality of Alcohol and Drug Abuse Patient Records regulations: The Federal rules restrict any use of the information to criminally investigate or prosecute any alcohol or drug abuse patient.[facility] the event this information is protected by the Federal Confidentiality of Alcohol and Drug Abuse Patient Records regulations: The Federal rules restrict any use of the information to criminally investigate or prosecute any alcohol or drug abuse patient.[facility] the event this information is protected by the Federal Confidentiality of Alcohol and Drug Abuse Patient Records regulations: The Federal rules restrict any use of the information to criminally investigate or prosecute any alcohol or drug abuse patient.[facility] the event this information is protected by the Federal Confidentiality of Alcohol and Drug Abuse Patient Records regulations: The Federal rules restrict any use of the information to criminally investigate or prosecute any alcohol or drug abuse patient.[facility]In the event this information is protected by the Federal Confidentiality of Alcohol and Drug Abuse Patient Records regulations: The Federal rules restrict any use of the information to criminally investigate or prosecute any alcohol or drug abuse patient.[facility]In the event this information is protected by the Federal Confidentiality of Alcohol and Drug Abuse Patient Records regulations: The Federal rules restrict any use of the information to criminally investigate or prosecute any alcohol or drug abuse patient.[facility] HospitalIn the event this information is protected by the Federal Confidentiality of Alcohol and Drug Abuse Patient Records regulations: The Federal rules restrict any use of the information to criminally investigate or prosecute any alcohol or drug abuse patient.[facility] HospitalIn the event this information is protected by the Federal Confidentiality of Alcohol and Drug Abuse Patient Records regulations: The Federal rules restrict any use of the information to criminally investigate or prosecute any alcohol or drug abuse patient.[facility] HospitalIn the event this information is protected by the Federal Confidentiality of Alcohol and Drug Abuse Patient Records regulations: The Federal rules restrict any use of the information to criminally investigate or prosecute any alcohol or drug abuse patient.[facility] HospitalIn the event this information is protected by the Federal Confidentiality of Alcohol and Drug Abuse Patient Records regulations: The Federal rules restrict any use of the information to criminally investigate or prosecute any alcohol or drug abuse patient.[facility] HospitalIn the event this information is protected by the Federal Confidentiality of Alcohol and Drug Abuse Patient Records regulations: The Federal rules restrict any use of the information to criminally investigate or prosecute any alcohol or drug abuse patient.[facility] HospitalIn the event this information is protected by the Federal Confidentiality of Alcohol and Drug Abuse Patient Records regulations: The Federal rules restrict any use of the information to criminally investigate or prosecute any alcohol or drug abuse patient.[facility] HospitalIn the event this information is protected by the Federal Confidentiality of Alcohol and Drug Abuse Patient Records regulations: The Federal rules restrict any use of the information to criminally investigate or prosecute any alcohol or drug abuse patient.[facility] HospitalIn the event this information is protected by the Federal Confidentiality of Alcohol and Drug Abuse Patient Records regulations: The Federal rules restrict any use of the information to criminally investigate or prosecute any alcohol or drug abuse patient.[facility] HospitalIn the event this information is protected by the Federal Confidentiality of Alcohol and Drug Abuse Patient Records regulations: The Federal rules restrict any use of the information to criminally investigate or prosecute any alcohol or drug abuse patient.[facility] HospitalIn the event this information is protected by the Federal Confidentiality of Alcohol and Drug Abuse Patient Records regulations: The Federal rules restrict any use of the information to criminally investigate or prosecute any alcohol or drug abuse patient.[facility] the event this information is protected by the Federal Confidentiality of Alcohol and Drug Abuse Patient Records regulations: The Federal rules restrict any use of the information to criminally investigate or prosecute any alcohol or drug abuse patient.[facility] HospitalIn the event this information is protected by the Federal Confidentiality of Alcohol and Drug Abuse Patient Records regulations: The Federal rules restrict any use of the information to criminally investigate or prosecute any alcohol or drug abuse patient.[facility] HospitalIn the event this information is protected by the Federal Confidentiality of Alcohol and Drug Abuse Patient Records regulations: The Federal rules restrict any use of the information to criminally investigate or prosecute any alcohol or drug abuse patient.[facility] HospitalIn the event this information is protected by the Federal Confidentiality of Alcohol and Drug Abuse Patient Records regulations: The Federal rules restrict any use of the information to criminally investigate or prosecute any alcohol or drug abuse patient.[facility] HospitalIn the event this information is protected by the Federal Confidentiality of Alcohol and Drug Abuse Patient Records regulations: The Federal rules restrict any use of the information to criminally investigate or prosecute any alcohol or drug abuse patient.[facility] HospitalIn the event this information is protected by the Federal Confidentiality of Alcohol and Drug Abuse Patient Records regulations: The Federal rules restrict any use of the information to criminally investigate or prosecute any alcohol or drug abuse patient.[facility] HospitalIn the event this information is protected by the Federal Confidentiality of Alcohol and Drug Abuse Patient Records regulations: The Federal rules restrict any use of the information to criminally investigate or prosecute any alcohol or drug abuse patient.[facility] HospitalIn the event this information is protected by the Federal Confidentiality of Alcohol and Drug Abuse Patient Records regulations: The Federal rules restrict any use of the information to criminally investigate or prosecute any alcohol or drug abuse patient.[facility] HospitalIn the event this information is protected by the Federal Confidentiality of Alcohol and Drug Abuse Patient Records regulations: The Federal rules restrict any use of the information to criminally investigate or prosecute any alcohol or drug abuse patient.[facility] HospitalIn the event this information is protected by the Federal Confidentiality of Alcohol and Drug Abuse Patient Records regulations: The Federal rules restrict any use of the information to criminally investigate or prosecute any alcohol or drug abuse patient.[facility] HospitalIn the event this information is protected by the Federal Confidentiality of Alcohol and Drug Abuse Patient Records regulations: The Federal rules restrict any use of the information to criminally investigate or prosecute any alcohol or drug abuse patient.[facility] HospitalIn the event this information is protected by the Federal Confidentiality of Alcohol and Drug Abuse Patient Records regulations: The Federal rules restrict any use of the information to criminally investigate or prosecute any alcohol or drug abuse patient.[facility] HospitalIn the event this information is protected by the Federal Confidentiality of Alcohol and Drug Abuse Patient Records regulations: The Federal rules restrict any use of the information to criminally investigate or prosecute any alcohol or drug abuse patient.[facility] HospitalIn the event this information is protected by the Federal Confidentiality of Alcohol and Drug Abuse Patient Records regulations: The Federal rules restrict any use of the information to criminally investigate or prosecute any alcohol or drug abuse patient.[facility] HospitalIn the event this information is protected by the Federal Confidentiality of Alcohol and Drug Abuse Patient Records regulations: The Federal rules restrict any use of the information to criminally investigate or prosecute any alcohol or drug abuse patient.[facility] HospitalIn the event this information is protected by the Federal Confidentiality of Alcohol and Drug Abuse Patient Records regulations: The Federal rules restrict any use of the information to criminally investigate or prosecute any alcohol or drug abuse patient.[facility] HospitalIn the event this information is protected by the Federal Confidentiality of Alcohol and Drug Abuse Patient Records regulations: The Federal rules restrict any use of the information to criminally investigate or prosecute any alcohol or drug abuse patient.[facility] HospitalIn the event this information is protected by the Federal Confidentiality of Alcohol and Drug Abuse Patient Records regulations: The Federal rules restrict any use of the information to criminally investigate or prosecute any alcohol or drug abuse patient.[facility] HospitalIn the event this information is protected by the Federal Confidentiality of Alcohol and Drug Abuse Patient Records regulations: The Federal rules restrict any use of the information to criminally investigate or prosecute any alcohol or drug abuse patient.[facility] HospitalIn the event this information is protected by the Federal Confidentiality of Alcohol and Drug Abuse Patient Records regulations: The Federal rules restrict any use of the information to criminally investigate or prosecute any alcohol or drug abuse patient.[facility] HospitalIn the event this information is protected by the Federal Confidentiality of Alcohol and Drug Abuse Patient Records regulations: The Federal rules restrict any use of the information to criminally investigate or prosecute any alcohol or drug abuse patient.[facility] HospitalIn the event this information is protected by the Federal Confidentiality of Alcohol and Drug Abuse Patient Records regulations: The Federal rules restrict any use of the information to criminally investigate or prosecute any alcohol or drug abuse patient.[facility] HospitalIn the event this information is protected by the Federal Confidentiality of Alcohol and Drug Abuse Patient Records regulations: The Federal rules restrict any use of the information to criminally investigate or prosecute any alcohol or drug abuse patient.[facility] HospitalIn the event this information is protected by the Federal Confidentiality of Alcohol and Drug Abuse Patient Records regulations: The Federal rules restrict any use of the information to criminally investigate or prosecute any alcohol or drug abuse patient.[facility] HospitalIn the event this information is protected by the Federal Confidentiality of Alcohol and Drug Abuse Patient Records regulations: The Federal rules restrict any use of the information to criminally investigate or prosecute any alcohol or drug abuse patient.[facility] HospitalIn the event this information is protected by the Federal Confidentiality of Alcohol and Drug Abuse Patient Records regulations: The Federal rules restrict any use of the information to criminally investigate or prosecute any alcohol or drug abuse patient.[facility] HospitalIn the event this information is protected by the Federal Confidentiality of Alcohol and Drug Abuse Patient Records regulations: The Federal rules restrict any use of the information to criminally investigate or prosecute any alcohol or drug abuse patient.[facility] HospitalIn the event this information is protected by the Federal Confidentiality of Alcohol and Drug Abuse Patient Records regulations: The Federal rules restrict any use of the information to criminally investigate or prosecute any alcohol or drug abuse patient.[facility] HospitalIn the event this information is protected by the Federal Confidentiality of Alcohol and Drug Abuse Patient Records regulations: The Federal rules restrict any use of the information to criminally investigate or prosecute any alcohol or drug abuse patient.[facility] HospitalIn the event this information is protected by the Federal Confidentiality of Alcohol and Drug Abuse Patient Records regulations: The Federal rules restrict any use of the information to criminally investigate or prosecute any alcohol or drug abuse patient.[facility] HospitalIn the event this information is protected by the Federal Confidentiality of Alcohol and Drug Abuse Patient Records regulations: The Federal rules restrict any use of the information to criminally investigate or prosecute any alcohol or drug abuse patient.[facility] HospitalIn the event this information is protected by the Federal Confidentiality of Alcohol and Drug Abuse Patient Records regulations: The Federal rules restrict any use of the information to criminally investigate or prosecute any alcohol or drug abuse patient.[facility] HospitalIn the event this information is protected by the Federal Confidentiality of Alcohol and Drug Abuse Patient Records regulations: The Federal rules restrict any use of the information to criminally investigate or prosecute any alcohol or drug abuse patient.[facility] HospitalIn the event this information is protected by the Federal Confidentiality of Alcohol and Drug Abuse Patient Records regulations: The Federal rules restrict any use of the information to criminally investigate or prosecute any alcohol or drug abuse patient.[facility] HospitalIn the event this information is protected by the Federal Confidentiality of Alcohol and Drug Abuse Patient Records regulations: The Federal rules restrict any use of the information to criminally investigate or prosecute any alcohol or drug abuse patient.[facility] HospitalIn the event this information is protected by the Federal Confidentiality of Alcohol and Drug Abuse Patient Records regulations: The Federal rules restrict any use of the information to criminally investigate or prosecute any alcohol or drug abuse patient.[facility] HospitalIn the event this information is protected by the Federal Confidentiality of Alcohol and Drug Abuse Patient Records regulations: The Federal rules restrict any use of the information to criminally investigate or prosecute any alcohol or drug abuse patient.[facility] HospitalIn the event this information is protected by the Federal Confidentiality of Alcohol and Drug Abuse Patient Records regulations: The Federal rules restrict any use of the information to criminally investigate or prosecute any alcohol or drug abuse patient.[facility] HospitalIn the event this information is protected by the Federal Confidentiality of Alcohol and Drug Abuse Patient Records regulations: The Federal rules restrict any use of the information to criminally investigate or prosecute any alcohol or drug abuse patient.[facility] HospitalIn the event this information is protected by the Federal Confidentiality of Alcohol and Drug Abuse Patient Records regulations: The Federal rules restrict any use of the information to criminally investigate or prosecute any alcohol or drug abuse patient.[facility] HospitalIn the event this information is protected by the Federal Confidentiality of Alcohol and Drug Abuse Patient Records regulations: The Federal rules restrict any use of the information to criminally investigate or prosecute any alcohol or drug abuse patient.[facility] HospitalIn the event this information is protected by the Federal Confidentiality of Alcohol and Drug Abuse Patient Records regulations: The Federal rules restrict any use of the information to criminally investigate or prosecute any alcohol or drug abuse patient.[facility] HospitalIn the event this information is protected by the Federal Confidentiality of Alcohol and Drug Abuse Patient Records regulations: The Federal rules restrict any use of the information to criminally investigate or prosecute any alcohol or drug abuse patient.[facility] HospitalIn the event this information is protected by the Federal Confidentiality of Alcohol and Drug Abuse Patient Records regulations: The Federal rules restrict any use of the information to criminally investigate or prosecute any alcohol or drug abuse patient.[facility] HospitalIn the event this information is protected by the Federal Confidentiality of Alcohol and Drug Abuse Patient Records regulations: The Federal rules restrict any use of the information to criminally investigate or prosecute any alcohol or drug abuse patient.[facility] HospitalIn the event this information is protected by the Federal Confidentiality of Alcohol and Drug Abuse Patient Records regulations: The Federal rules restrict any use of the information to criminally investigate or prosecute any alcohol or drug abuse patient.[facility] HospitalIn the event this information is protected by the Federal Confidentiality of Alcohol and Drug Abuse Patient Records regulations: The Federal rules restrict any use of the information to criminally investigate or prosecute any alcohol or drug abuse patient.[facility] HospitalIn the event this information is protected by the Federal Confidentiality of Alcohol and Drug Abuse Patient Records regulations: The Federal rules restrict any use of the information to criminally investigate or prosecute any alcohol or drug abuse patient.[facility] HospitalIn the event this information is protected by the Federal Confidentiality of Alcohol and Drug Abuse Patient Records regulations: The Federal rules restrict any use of the information to criminally investigate or prosecute any alcohol or drug abuse patient.[facility] HospitalIn the event this information is protected by the Federal Confidentiality of Alcohol and Drug Abuse Patient Records regulations: The Federal rules restrict any use of the information to criminally investigate or prosecute any alcohol or drug abuse patient.[facility]In the event this information is protected by the Federal Confidentiality of Alcohol and Drug Abuse Patient Records regulations: The Federal rules restrict any use of the information to criminally investigate or prosecute any alcohol or drug abuse patient.[facility] HospitalIn the event this information is protected by the Federal Confidentiality of Alcohol and Drug Abuse Patient Records regulations: The Federal rules restrict any use of the information to criminally investigate or prosecute any alcohol or drug abuse patient.[facility] HospitalIn the event this information is protected by the Federal Confidentiality of Alcohol and Drug Abuse Patient Records regulations: The Federal rules restrict any use of the information to criminally investigate or prosecute any alcohol or drug abuse patient.[facility] HospitalIn the event this information is protected by the Federal Confidentiality of Alcohol and Drug Abuse Patient Records regulations: The Federal rules restrict any use of the information to criminally investigate or prosecute any alcohol or drug abuse patient.[facility] HospitalIn the event this information is protected by the Federal Confidentiality of Alcohol and Drug Abuse Patient Records regulations: The Federal rules restrict any use of the information to criminally investigate or prosecute any alcohol or drug abuse patient.[facility] HospitalIn the event this information is protected by the Federal Confidentiality of Alcohol and Drug Abuse Patient Records regulations: The Federal rules restrict any use of the information to criminally investigate or prosecute any alcohol or drug abuse patient.[facility] HospitalIn the event this information is protected by the Federal Confidentiality of Alcohol and Drug Abuse Patient Records regulations: The Federal rules restrict any use of the information to criminally investigate or prosecute any alcohol or drug abuse patient.[facility] HospitalIn the event this information is protected by the Federal Confidentiality of Alcohol and Drug Abuse Patient Records regulations: The Federal rules restrict any use of the information to criminally investigate or prosecute any alcohol or drug abuse patient.[facility] HospitalIn the event this information is protected by the Federal Confidentiality of Alcohol and Drug Abuse Patient Records regulations: The Federal rules restrict any use of the information to criminally investigate or prosecute any alcohol or drug abuse patient.[facility] HospitalIn the event this information is protected by the Federal Confidentiality of Alcohol and Drug Abuse Patient Records regulations: The Federal rules restrict any use of the information to criminally investigate or prosecute any alcohol or drug abuse patient.[facility] HospitalIn the event this information is protected by the Federal Confidentiality of Alcohol and Drug Abuse Patient Records regulations: The Federal rules restrict any use of the information to criminally investigate or prosecute any alcohol or drug abuse patient.[facility] HospitalIn the event this information is protected by the Federal Confidentiality of Alcohol and Drug Abuse Patient Records regulations: The Federal rules restrict any use of the information to criminally investigate or prosecute any alcohol or drug abuse patient.[facility] HospitalIn the event this information is protected by the Federal Confidentiality of Alcohol and Drug Abuse Patient Records regulations: The Federal rules restrict any use of the information to criminally investigate or prosecute any alcohol or drug abuse patient.[facility] HospitalIn the event this information is protected by the Federal Confidentiality of Alcohol and Drug Abuse Patient Records regulations: The Federal rules restrict any use of the information to criminally investigate or prosecute any alcohol or drug abuse patient.[facility] HospitalIn the event this information is protected by the Federal Confidentiality of Alcohol and Drug Abuse Patient Records regulations: The Federal rules restrict any use of the information to criminally investigate or prosecute any alcohol or drug abuse patient.[facility] HospitalIn the event this information is protected by the Federal Confidentiality of Alcohol and Drug Abuse Patient Records regulations: The Federal rules restrict any use of the information to criminally investigate or prosecute any alcohol or drug abuse patient.[facility] HospitalIn the event this information is protected by the Federal Confidentiality of Alcohol and Drug Abuse Patient Records regulations: The Federal rules restrict any use of the information to criminally investigate or prosecute any alcohol or drug abuse patient.[facility] HospitalIn the event this information is protected by the Federal Confidentiality of Alcohol and Drug Abuse Patient Records regulations: The Federal rules restrict any use of the information to criminally investigate or prosecute any alcohol or drug abuse patient.[facility] HospitalIn the event this information is protected by the Federal Confidentiality of Alcohol and Drug Abuse Patient Records regulations: The Federal rules restrict any use of the information to criminally investigate or prosecute any alcohol or drug abuse patient.[facility] HospitalIn the event this information is protected by the Federal Confidentiality of Alcohol and Drug Abuse Patient Records regulations: The Federal rules restrict any use of the information to criminally investigate or prosecute any alcohol or drug abuse patient.[facility] HospitalIn the event this information is protected by the Federal Confidentiality of Alcohol and Drug Abuse Patient Records regulations: The Federal rules restrict any use of the information to criminally investigate or prosecute any alcohol or drug abuse patient.[facility] HospitalIn the event this information is protected by the Federal Confidentiality of Alcohol and Drug Abuse Patient Records regulations: The Federal rules restrict any use of the information to criminally investigate or prosecute any alcohol or drug abuse patient.[facility] HospitalIn the event this information is protected by the Federal Confidentiality of Alcohol and Drug Abuse Patient Records regulations: The Federal rules restrict any use of the information to criminally investigate or prosecute any alcohol or drug abuse patient.[facility] the event this information is protected by the Federal Confidentiality of Alcohol and Drug Abuse Patient Records regulations: The Federal rules restrict any use of the information to criminally investigate or prosecute any alcohol or drug abuse patient.[facility] the event this information is protected by the Federal Confidentiality of Alcohol and Drug Abuse Patient Records regulations: The Federal rules restrict any use of the information to criminally investigate or prosecute any alcohol or drug abuse patient.[facility] Reason for Visit (unrecogniz ed section and content) Reason Comments Appointment Reason Comments Insurance Authorization Reason Comments Orders Reason Comments Medicare Wellness Exam Reason Comments Consult Consult [facility] Reason Comments Results EGD results - [facility] Reason Comments Hospital F/U Reason Comments Results [...] Date Comments Population Health Navigation Outreach 08/25/2023 [facility] AWV Reason Comments Radiology CT Specialty Diagnoses / Procedures Referred By Contac t Referred To Contact CT IMAGING Diagnoses Other specified disorders of kidney and ureter Kidney lesion Procedures CT KIDNEY WO/W IVCON CT ABDOMEN W & W/O CONTRAST Valeriano Choe MD [address] [place] [address] [place] [address] Referral ID Status Reason Start Date Expiration Date V isits Requested Visits Authorized [id number] Closed Auto-Generate d Referral 08/21/2023 09/19/2024 1 1 Reason Comments Outside Orthopedics Reason Comments outside imaging Reason Comments Outside Cardiology labs Reason Comments [facility] Reason Onset Date Comments Refill Request 09/25/2023 Reason Comments Outside Echo US Reason Onset Date Comments Population Health Navigation Outreach 10/14/2023 [facility] Annual Wellness Visit Reason Comments Orders labs Reason Comments Ext / Nuclear Stress Test Reason Comments Patient Question Reason Comments New Patient New patient. Pt repo rted bilateral numbness, weakness hands, feet x2 yrs. Specialty Diagnoses / Procedures Referred By Contac t Referred To Contact Neurology Diagnoses Balance problems Procedures CONSULT TO NEUROLOGY OFFICE/OUTPATIENT [facility] 60 MINUTES Suzanna Dawson PA-C [address] [place] [address] Referral ID Status Reason Start Date Expiration Date V isits Requested Visits Authorized [id number] Closed PCP Requested Referral 2023 10/18/2024 1 1 Reason Onset Date Comments Refill Request 01/08/2024 Reason Comments Outside Cardiology Specialty Diagnoses / Procedures Referred By Contac t Referred To Contact MR IMAGING Diagnoses Other symptoms and signs involving the nervous system Procedures MRA CAROTID WO IVCON MRA, NECK; W/O CONTRAST Patria Butler Jr., MD [address] [facility] [address] [place] [address] Mr Imaging [facility] Referral ID Status Reason Start Date Expiration Date V isits Requested Visits Authorized [id number] Closed Auto-Generate d Referral 01/01/2024 01/30/2025 1 1 Specialty Diagnoses / Procedures Referred By Contac t Referred To Contact MR IMAGING Diagnoses Other symptoms and signs involving the nervous system Procedures MRA BRAIN WO IVCON MRA, HEAD W/O CONTRAST Patria Butler Jr., MD [address] [place] [address] [place] [address] Referral ID Status Reason Start Date Expiration Date V isits Requested Visits Authorized [id number] Closed Auto-Generate d Referral 01/01/2024 01/30/2025 1 1 Reason Comments Results Specialty Diagnoses / Procedures Referred By Contac t Referred To Contact CT IMAGING Diagnoses Occlusion and stenosis of unspecified carotid artery Procedures CTA NECK W IVCON CT ANGIOGRAPHY NECK W/CONTRAST/NONCONTRAST Patria Butler Jr., MD [address] [facility] [address] [place] [address] [place] [address] Referral ID Status Reason Start Date Expiration Date V isits Requested Visits Authorized [id number] Closed Auto-Generate d Referral 02/07/2024 03/08/2025 1 [...] subsequent encounter Procedures CONSULT TO ALLERGY/IMMUNOLOGY OFFICE/OUTPATIENT [facility] 60 MINUTES Valeriano Choe MD [address] [place] [address] Referral ID Status Reason Start Date Expiration Date V isits Requested Visits Authorized [id number] Closed PCP Requested Referral 07/31/2024 07/31/2025 1 1 Reason Comments Established Patient Balance problems, pt states balance is ok some days, neuropathy worsening Reason Comments Abnormal Lab Specialty Diagnoses / Procedures Referred By Contac t Referred To Contact Rheumatology Diagnoses Positive GALLO (antinuclear antibody) Procedures CONSULT TO RHEUM/IMMUN DISEASE OFFICE/OUTPATIENT [facility] 60 MINUTES Patria Butler Jr., MD [address] [place] [address] Phone: tel: fax: Referral ID Status Reason Start Date Expiration Date V isits Requested Visits Authorized [id number] Closed PCP Requested Referral 08/30/2024 08/30/2025 1 1 Reason Comments Outside Imaging Reason Comments Outside [id number] Ordered Reason Comments Results Outside labs Reason Comments Outside Imaging Urology Reason Comments New Patient Reason Comments Established Patient Reason Comments 6 Month Exam Reason Comments Radiology US Specialty Diagnoses / Procedures Referred By Contac t Referred To Contact US IMAGING Diagnoses Screening for abdominal aortic aneurysm Procedures US SCREENING FOR AAA US ABDOMINAL AORTA REAL TIME SCREEN STUDY AAA Ni Sauceda, MEDICAL PL[employer]NER.PATHOLOGY TECH [address] [place] [address] Phone: tel: fax: [place] [address] Referral ID Status Reason Start Date Expiration Date V isits Requested Visits Authorized [id number] Closed Auto-Generate d Referral 11/01/2024 12/01/2025 1 1 Reason Comments external document Lab results Reason Comments Follow Up Neuropathy follow up , patient states his episodes of Neuropathy are getting more frequent, about every week and of longer duration, will now last several days instead of just a few hours Reason Onset Date Comments Results 11/07/2024 Reason Comments Rectal Bleeding Reason Comments Abstract [facility] Admission - GI b leed Reason Comments Abstract Allergy OV notes Reason Comments ext document Labs, procedure Care Team (unrecognized sect ion and content) Care Team Personnel Name: VALERIANO CHOE MD Member Role: Primary Care Physician Address: Address: [address] [place] [id number]- Care Team Related Persons Name: JOSE HUTTON Goals (unrecognized section and content) Goals may be documented in a n alternate section (unrecognized sect ion and content) No Status Records FoundNo Status Records FoundNo Status Records FoundNo Status Records Found INFORMATION SOURCE (unrecogn ized section and content) DATE CREATED AUTHOR 01/03/2023 [facility] ([place]) DATE CREATED AUTHOR AUTHOR'S ORGANIZ ATION 08/11/2023 [facility] DATE CREATED AUTHOR AUTHOR'S ORGANIZ ATION 05/20/2025 [facility] DATE CREATED AUTHOR AUTHOR'S ORGANIZ ATION 06/03/2025 [facility] FOR RECORDS PERTAINING TO PATIENTS WHO [...] BE BASED ON THE PRIMARY CLINICAL RECORDS. [employer] [facility]. provides no warranty or guarantee of the accuracy or completeness of information in this document.
--- NOTE | 2025-06-09 14:42 | STRESSREP ---
Stress Test Report Pharmacologic myocardial perfusion stress test. 74-year-old man with a history of coronary artery disease. Resting EKG demonstrates normal sinus rhythm with a left bundle branch block with a rate of 90 bpm. Resting blood pressure is 132/70 mmHg. 0.4 mg of regadenoson was infused per usual protocol followed by rapid intravenous saline flush injection. Continuous EKG monitoring was performed. The maximum heart rate was 102 bpm which was 69% of max impacted heart rate the maximum workload was 1 metabolic equivalent. At rest there were no ST or T wave changes noted to suggest ischemia and at peak infusion nonspecific ST changes were noted which did not meet the criteria for ischemia. No clinical angina is noted. The final blood pressure was 122/80 mmHg. Myocardial perfusion protocol. 14.5 mCi of technetium 99m sestamibi was injected at rest. 0.4 mg of regadenoson was infused per usual protocol. At peak infusion 44.9 mCi of technetium 99m sestamibi was injected stress images were obtained stress and rest images were reconstructed and compared in the short axis vertical long and horizontal long axis. Gated images were also obtained. Perfusion SPECT analysis: Review of the stress images demonstrate normal uptake of tracer noted in all areas of the myocardium. There is however an area in the apex with reduced perfusion. The resting images demonstrate a similar pattern. There is also a small to medium size area in the lateral wall with a perfusion defect. On the resting images this appears to improve suggesting a mild amount of tonio-infarct ischemia involving the lateral wall. Gated SPECT analysis: The gated ejection fraction is 41%. Conclusion: Mildly abnormal pharmacologic myocardial perfusion stress test. Mildly reduced ejection fraction. 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
== END | disposition home or self-care (01) ==
LOC: CVS 06:43
PROVIDERS: PCP Family Medicine; Referring Provider Nurse Practitioner Gerontology; Visit Provider Nurse Practitioner Gerontology
DX: R07.9 Chest pain, unspecified (principal); R06.02 Shortness of breath
CPT/HCPCS: 78452; 93017; 93306; A9500; Q9957; A4216; C8929; J2785

== ENCOUNTER → 2025-06-23 | Outpatient (CLI) | payer MEDICARE, SELFPAY ==
[2023-08-23 15:18] VITALS: BMI 28.3
[2025-06-23 17:44] LABS: Anion Gap 13 (5-15); BUN 16 mg/dL (4-19); BUN/Creat Ratio 20.5 RATIO (10-20); Calcium,Total 9.5 mg/dL (7.6-11.0); Carbon Dioxide 21.6 mmol/L (21.0-32.0); Chloride 100 mmol/L (98-108); Glucose 110 mg/dL (70-99); Potassium 4.5 mmol/L (3.3-5.1)
== END | disposition home or self-care (01) ==
LOC: LAB 15:30
PROVIDERS: PCP Family Medicine; Referring Provider Nurse Practitioner Gerontology; Visit Provider Nurse Practitioner Gerontology
DX: Z51.81 Encounter for therapeutic drug level monitoring (principal); Z79.899 Other long term (current) drug therapy
CPT/HCPCS: 36415; 80048

== ENCOUNTER → 2025-06-24 | Outpatient (CLI) | payer MEDICARE, SELFPAY ==
[2023-08-23 15:18] VITALS: BMI 28.3
[2025-06-24 16:46] LABS: Hematocrit 41.2 % (40-54); Hemoglobin 14.1 g/dL (13.0-16.5); Immature Granulocytes Count 0.080 X10^3/uL (0.0-0.0); Mean Corp Hgb Conc 34.2 g/dL (32-36); Mean Corpuscular Volume 101.5 fL (80-94); Mean Platelet Vol. 10.2 fl (6.2-12.0); NRBC Flagged by Analyzer 0 % (0-5); Platelet Count 236 K/mm3 (150-450); RBC Distribution Width CV 13.8 % (11.6-14.6); RBC Distribution Width SD 51.3 fl (35.1-43.9); Red Blood Count 4.06 M/mm3 (4.6-6.2); White Blood Count 8.3 K/mm3 (4.4-11.0)
[2025-06-24 17:13] LABS: Pro- Brain NATRIURETIC PEPTIDE 301 pg/mL (<=900)
== END | disposition home or self-care (01) ==
LOC: LAB 15:34
PROVIDERS: PCP Family Medicine; Referring Provider Nurse Practitioner Gerontology; Visit Provider Nurse Practitioner Gerontology
DX: R06.02 Shortness of breath (principal)
CPT/HCPCS: 36415; 83880; 85025